=== PATIENT | female | born 1945 | race Caucasian/White ===

== ENCOUNTER 2021-08-20 14:35 | Outpatient (CLI) | payer MEDICARE, BC, SELFPAY ==
[2021-08-20 14:51] LABS: Hemoglobin A1C* 8.2 % (0-5.6)
[2021-08-20 21:24] LABS: Chloride* 105 mmol/L (96-114); Potassium* 4.9 mmol/L (3.6-5.1); Sodium* 135 mmol/L (135-149)
[2021-08-20 21:26] LABS: Creatinine* 1.4 mg/dL (0.5-1.5); Estimated Glomerular Filt Rate 38.99
[2021-08-20 21:27] LABS: Blood Urea Nitrogen* 50 mg/dL (7-30); Calcium* 9.7 mg/dL (8.4-10.6); Carbon Dioxide* 20 mmol/L (20-32); Glucose* 308 mg/dL (60-115)
== END 2021-08-20 14:36 | disposition home or self-care (01) ==
LOC: KYNREF 14:36
PROVIDERS: PCP Nurse Practitioner Family; Visit Provider Nurse Practitioner Family
DX: E11.9 Type 2 diabetes mellitus without complications (principal); M10.9 Gout, unspecified; I10 Essential (primary) hypertension; E78.5 Hyperlipidemia, unspecified; Z51.81 Encounter for therapeutic drug level monitoring
CPT/HCPCS: 36415; 80048; 83036

== ENCOUNTER 2021-08-27 11:33 | Outpatient (CLI) | payer MEDICARE, SELFPAY ==
[2021-08-27 15:22] LABS: Chloride* 109 mmol/L (96-114); Potassium* 4.2 mmol/L (3.6-5.1); Sodium* 136 mmol/L (135-149)
[2021-08-27 15:25] LABS: Blood Urea Nitrogen* 27 mg/dL (7-30); Carbon Dioxide* 20 mmol/L (20-32); Creatinine* 1.2 mg/dL (0.5-1.5); Estimated Glomerular Filt Rate 46.91; Glucose* 183 mg/dL (60-115)
[2021-08-27 15:26] LABS: Calcium* 9.5 mg/dL (8.4-10.6)
--- OUTSIDE RECORDS SUMMARY | 2021-09-05 00:08 | XMS_ITS | Encounter Summary ---
:1945 Author Organization [facility] Address [address] [place] [address] Care Team Providers Name Role Phone Lincoln Vazquez MD Primary Care Provider Reason for Visit Reason Onset Date Comments a1c meter 04/05/2021 Encounter Details Date Type Department Care Team Description 04/05/2021 Telephone [place] Corrine Vazquez MD a1c meter [address] [place], [place] [address] [place], [place] [phone] (Wo rk) Social History Tobacco Use Types Packs/Day Years Used Date Never Smoker Smokeless Tobacco: Never Used Alcohol Use Standard Drinks/Week Comments No 0 (1 standard drink = 0.6 oz pure alcoho l) Alcohol Habits Answer Date Recorded How often do you have a drink containing alcohol? Never 02/21/2020 How many drinks containing alcohol do you have on a typical Not asked day when you are drinking? How often do you have six or more drinks on one occasion? No t asked Comment: Not asked Social Isolation Answer Date Recorded In a typical week, how many times do you More than three agapito es a week 12/23/2018 talk on the phone with family, friends, or neighbors? How often do you get together with friends More than three t imes a week 12/23/2018 or relatives? How often do you attend latter-day or More than 4 times per year 12/23/2018 zoroastrian services? Do you belong to any clubs or No 12/23/2018 organizations such as latter-day groups, unions, fraternal or athletic groups, or school groups? How often do you attend meetings of the Never 12/23/2018 clubs or organizations you belong to? Are you now , , , 12/23/2018 , never or living with a partner? Physical Activity Answer Date Recorded On average, how many days per week do you engage in moderate to 0 days 12/23/2018 strenuous exercise (like walking fast, running, jogging, dancing, swimming, biking, or other activities that cause a light or heavy sweat)? On average, how many minutes do you engage in exercise at th is 0 min 12/23/2018 level? Stress Answer Date Recorded Do you feel stress - tense, restless, nervous, or To some ex tent 12/23/2018 anxious, or unable to sleep at night because your mind is troubled all the time - these days? Financial Resource Strain Answer Date Recorded How hard is it for you to pay for the very basics like Not h erika at all 02/21/2020 food, housing, medical care, and heating? Intimate Partner Violence Answer Date Recorded Within the last year, have you been afraid of your partner o r No 12/23/2018 ex-partner? Within the last year, have you been humiliated or emotionall y No 12/23/2018 abused in other ways by your partner or ex-partner? Within the last year, have you been kicked, hit, slapped, or No 12/23/2018 otherwise physically hurt by your partner or ex-partner? Within the last year, have you been raped or forced to have any No 12/23/2018 kind of sexual activity by your partner or ex-partner? Food Insecurity Answer Date Recorded Within the past 12 months, you worried that your food would Never true 02/21/2020 run out before you got money to buy more. Within the past 12 months, the food you bought just didn't N ever true 02/21/2020 last and you didn't have money to get more. Transportation Needs Answer Date Recorded In the past 12 months, has lack of transportation kept you f rom No 02/21/2020 medical appointments or from getting medications? In the past 12 months, has lack of transportation kept you f rom No 02/21/2020 meetings, work, or getting things needed for daily living? Sex Assigned at Date Recorded Not on file documented as of this encounter Miscellaneous Notes Telephone Encounter - Lana Knight LPN - 04/05/2021 10:51 AM CST Noted TUNE UP MECHANIC Telephone Encounter - Luciana Albarado - 04/05/2021 10:25 AM CST Rx faxed to [facility] TUNE UP MECHANIC Telephone Encounter - Jovanna Swartz RN - 04/05/2021 9:51 AM CST Please fax Rx to [facility]. Thank you. TUNE UP MECHANIC Telephone Encounter - Corrine Vazquez MD - 04/05/2021 9:19 AM CST You can fax the order for her glucometer to her pharmacy. TUNE UP MECHANIC Telephone Encounter - Lana Knight LPN - 04/05/2021 9:11 AM CST Contour Next Meter TUNE UP MECHANIC Telephone Encounter - Clyde Hale - 04/05/2021 8:32 AM CST Pt called to request a new A1c meter(does not need testing strips)plz call pt if you have questions TUNE UP MECHANIC documented in this encounter Plan of Treatment Not on filedocumented as of this encounter Goals Goal Patient Goal Associated Recent Patient-Stated? Author Type Problems Progress Routine Health General No change No Domitila, Management (02/05/2021 Abbie Murray, 11:19 AM AUTO TUNE UP MECHANIC) RN Note: Formatting of this note is differe nt from the original. Routine Health Management Care Team Patient Care Team: Corrine Vazquez MD as PCP - General ([facility]) Yossi Potts, RN as Registered Nurse (Diabetes Education) Abbie Ramesh, RN as Topography Technician Future Scheduled Appointments No future appointments. Health Maintenance Health Maintenance Topic Date Due Urine Protein Screening 05/31/2020 Lipid Panel 09/05/2020 Glaucoma Screening 67+ Yr 12/25/2020 Ophthalmology Exam 12/25/2020 [facility] Annual Wellness 01/12/2021 Hemoglobin A1C 01/24/2021 Diabetic Foot Exam 03/16/2021 Colorectal Cancer Screening: Colonoscop y 05/21/2021 Fall Risk Performed 06/05/2021 Mammogram 12/03/2021 COVID-19 Vaccine Completed [facility] Pneumococcal Vaccine: <64 Complete d [facility] Pneumococcal Vaccine: 65+ Years Co mpleted HPV Vaccines Aged Out Notes: Due: Urine Protein screening Eye exam AWV A1C Lipid panel Diabetes Management General No change (02/05/2021 11:17 AM No Abbie Ramesh, RN AUTO TUNE UP MECHANIC) Note: Formatting of this note is differe nt from the original. Diabetes Management Type 2 diabetes mellitus with other spec ified complication (HCC) Managed by (PCP or Endocrinology) Dr. 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) Diabetic labs: Hemoglobin A1C (goal: less than 8.0) LDL (goal: less than 100) Creatinine Urine-Micro albumin / Protein Lab Result s Component Value Date HGBA1C 8.4 (H) 06/15/2020 Lab Results Component Value Date LDLCALC 99 09/06/2019 CREATININE 1.2 03/16/2020 Recent Blood Pressure (goal: less than 140/90) BP Readings fro m Last 1 Encounters: 11/09/20 144/82 Diabetic Eye Exam (yearly) Last: 12/26/19 Diabetic Foot Exam (yearly) Last: 021 Tobacco use Social History Tobacco Use Smoking status: Never Smoker Smokeless tobacco: Never Used Notes / Items to work on: 9/17/21: Tapering down metformin- currently takin g 500mg daily Cardiovascular Management General On track (02/05/2021 Abbie Monzon RN 11:14 AM AUTO TUNE UP MECHANIC) Note: Formatting of this note is differe nt from the original. Cardiovascular Management Essential hypertension Chronic coronary artery disease Managed by (PCP; Cardiology; Antico Clinic) Dr. Ronak olzoya MD (PCP)/Dr. Tena MD Last: 11/09/20 Due: 3 months Blood pressure goal Less than 140/90 (ag e 18-59) Recent blood pressures BP Readings from Last 3 Encounters: 11/09/20 144/82 10/08/20 120/80 06/19/20 120/60 Labs Lab Results Component Value Date CHOL 183 09/06/2019 HDL 37 (A) 09/06/2019 LDLCALC 99 09/06/2019 TRIG 234 (A) 09/06/2019 Medication use Notes: documented as of this encounter Visit Diagnoses Diagnosis Type 2 diabetes mellitus with other spec ified complication, with long-term current use of insulin (HCC) - Primary documented in this encounter Care Teams Manufacturing Executive Relationship Specialty Start Date End Date Corrine Vazquez MD PCP - General Family Medicine 07/07/19 08/19/[address] [place] [address] documented as of this encounter
--- OUTSIDE RECORDS SUMMARY | 2021-09-05 00:08 | XMS_ITS | Encounter Summary ---
:1945 Author Organization [facility] Address [address] [place] [address] Care Team Providers Name Role Phone Lincoln Vazquez MD Primary Care Provider Reason for Visit Reason Onset Date Comments registry management 05/09/2021 Encounter Details Date Type Department Care Team Description 05/09/2021 Telephone [place] Corrine Vazquez, registry management [address] [facility] [address] [place], [place] [id number] [place] [address] [place] [address] ([facility]) Social History Tobacco Use Types Packs/Day Years [...] or relatives? How often do you attend mu-ism or More than 4 times per year 12/23/2018 adventism services? Do you belong to any clubs or No 12/23/2018 organizations such as mu-ism groups, unions, fraternal or athletic groups, or [...] this encounter Miscellaneous Notes Telephone Encounter - Margareth Sanchez RN - 05/09/2021 9:[address] Vazquez, please see recommendations at the bottom and advise. Registry Management Marcial is active on the following registry/registries: Hypertension Registry Measure Value Optimal Care BP reading -yearly BP Readings from Last 1 Encounters: 03/06/21 (!) 162/86 Yes BP controlled Age 18-59 <140/90 Age 60-85 <150/90 No Actions needed to achieve optimal care for hypertension: ??? Schedule appointment with PCP for a routine visit Diabetes Registry Measure Value Optimal Care BP controlled <140/90 BP Readings from Last 1 Encounters: 03/06/21 (!) 162/86 No Eye exam -yearly HM: Due Date: 12/26/2019 No Foot exam -yearly HM: Due Date: 03/08/20 No Tobacco use - non-tobacco user Tobacco Use: Low Risk ??? Smoking Tobacco Use: Never Smoker ??? Smokeless Tobacco Use: Never Used Yes Aspirin use Indicated if age 50+ and diagnosis of IVD Listed on Medication list or Allergy list No Statin use Indicated if age 40+ or LDL >100 Listed on Medication list or Allergy list Yes A1C -control < 8.0% -yearly HGBA1C (% A1C) Date Value 02/14/2021 8.6 (H) 06/15/2020 8.4 (H) 03/16/2020 8.5 (H) No LDL -control < 100 -yearly LDLCALC (mg/dL) Date Value 02/14/2021 136 (H) No MicroAlbCrea -yearly MICROALBCREA (mg/g) Date Value 02/14/2021 41 (H) CREATU (mg/dL) Date Value 02/14/2021 257 Yes Actions needed to achieve optimal care for diabetes: ??? Schedule appointment for: office visit with PCP, labs (non-fasting), diabetic eye exam and diabetic foot exam ??? Alert the provider to advise ASA therapy Actions taken: ??? Patient is followed by Care Coordination. Alerted CCM-RN to discuss the care gaps with patient. ??? RN spoke to patient and advised her that she is due for a diabetic foot exam and an A1C. She stated that she isn't taking her blood pressure medication at this time due to feeling poorly and havingto see cardiology, she stopped the medications after this visit and she felt better. Patient stated she had an eye exam recently at the [facility], RN will call for records. ??? , please advise on possible Aspirin Therapy. documented in this encounter Plan of Treatment Not on filedocumented as of this encounter Goals Goal Patient Goal Associated Recent Patient-Stated? Author Type Problems Progress Routine Health General No change No Domitila, Management (02/05/2021 Abbie Murray 11:19 AM STORE OPERATIONS SPECIALIST) RN Note: Formatting of this note is differe nt from the original. Routine Health Management Care Team Patient Care Team: Corrine Vazquez MD as PCP - General ([facility] Medicine) Yossi Potts RN as Registered Nurse (Diabetes Education) Abbie Ramesh RN as Vocal Music Instructor Future Scheduled Appointments No future appointments. Health Maintenance Health Maintenance Topic Date Due Urine Protein Screening 05/31/2020 Lipid Panel 09/05/2020 Glaucoma Screening 67+ Yr 12/25/2020 Ophthalmology Exam 12/25/2020 [facility] Annual Wellness 01/12/2021 Hemoglobin A1C 01/24/2021 Diabetic Foot Exam 03/16/2021 Colorectal Cancer Screening: Colonoscop y 05/21/2021 Fall Risk Performed 06/05/2021 Mammogram 12/03/2021 COVID-19 Vaccine Completed [facility] Pneumococcal Vaccine: <64 Complete d [facility] Pneumococcal Vaccine: 65+ Years Co mpleted HPV Vaccines Aged Out Notes: Due: Urine Protein screening Eye exam AWV A1C Lipid panel Diabetes Management General No change (02/05/2021 11:17 AM Abbie Monzon, RN STORE OPERATIONS SPECIALIST) Note: Formatting of this note is differe nt from the original. Diabetes Management Type 2 diabetes mellitus with other spec ified complication (HCC) Managed by (PCP or Endocrinology) Dr. Vazquez (PCP ) Home Glucose tracking 1-3 times per day Diabetic medications insulin glargine (B ASAGLAR KWIKPEN) 100 UNIT/ML injection 22 units in AM [...] Used Notes / Items to work on: 11/02/20: Tapering down metformin- currently takin g 500mg daily Cardiovascular Management General On track (02/05/2021 Abbie Monzon RN 11:14 AM STORE OPERATIONS SPECIALIST) Note: Formatting of this note is differe nt from the original. Cardiovascular Management Essential hypertension Chronic coronary artery disease Managed by (PCP; Cardiology; Anticoag Clinic) Dr. Ronak lozoya MD (PCP)/Dr. Tena MD Last: 11/09/20 Due: 3 months Blood pressure goal Less than 140/90 (ag e 18-59) Recent blood pressures BP Readings from Last 3 Encounters: 11/09/20 144/82 10/08/20 120/80 06/19/20 120/60 Labs Lab Results Component Value Date CHOL 183 09/06/2019 HDL 37 (A) 09/06/2019 LDLCALC 99 09/06/2019 TRIG 234 (A) 09/06/2019 Medication use Notes: documented as of this encounter Visit Diagnoses Not on filedocumented in this encounter Care Teams Block Setter Gypsum Relationship Specialty Start Date End Date Corrine Vazquez MD PCP - General Family Medicine 07/07/19 08/19/[address] [place] [address] documented as of this encounter
--- OUTSIDE RECORDS SUMMARY | 2021-09-05 00:08 | XMS_ITS | Encounter Summary ---
:1945 Author Organization [facility] Address [address] [place] [address] Care Team Providers Name Role Phone Lincoln Vazquez MD Primary Care Provider Reason for Visit Consultation (Routine) - Authorized Specialty Diagnoses / Procedures Referred By Contact Refer red To Contact Family Medicine Diagnoses Enrolled in chronic care management Essential hypertension Type 2 diabetes mellitus with other specified complication, with long-term current use of insulin (HCC) Mixed hyperlipidemia Corrine Vazquez MD Care Coordination [address] [address] [place] [address], [place] [phone] Referral ID Status Reason Start Expiration Visits Visits Date Date Requested Authorized [id number] Authorized Specialty 02/16/2021 03/18/2022 99 99 Services Required Encounter Details Date Type Department Care Team Description 05/09/2021 Patient Outreach Care Coordination Abbie Ramesh [facility] and [address] [place] [address] Terri RN coordination of care [place], [place] [id number] [facility] (Primary Dx) [phone] [place] [phone] Social History Tobacco Use Types Packs/Day Years [...] or relatives? How often do you attend bahai or More than 4 times per year 12/23/2018 sikh services? Do you belong to any clubs or No 12/23/2018 organizations such as bahai groups, unions, [employer] or athletic groups, or school groups? How [...] on file documented as of this encounter Progress Notes Abbie Ramesh RN - 05/09/2021 8:40 AM CDT Care Plan - Care Coordination Contact Date: 05/09/2021 3:33 PM Called for monthly follow up and progress; Left message to call back. This is first attempt to call this month. documented in this encounter Plan of Treatment Not on filedocumented as of this encounter Goals Goal Patient Goal Associated Recent Patient-Stated? Author Type Problems Progress Routine Health General No change No Peter Ramesh (02/05/2021 Abbie Murray, 11:19 AM CUSTOM DECORATING CONSULTANT) RN Note: Formatting of this note is differe nt from the original. Routine Health Management Care Team Patient Care Team: Corrine Vazquez MD as PCP - General ([facility] Medicine) Yossi Potts, RN as Registered Nurse (Diabetes Education) Abbie Ramesh RN as Transcribing Machine Operator Future Scheduled Appointments No future appointments. Health [...] No change (02/05/2021 11:17 AM No Abbie Ramesh RN CUSTOM DECORATING CONSULTANT) Note: Formatting of this note is differe nt from the original. Diabetes Management Type 2 diabetes mellitus with other spec ified complication (HCC) Managed by (PCP or Endocrinology) Dr. Vazquez (PCP ) Home Glucose tracking 1-3 times per day Diabetic medications insulin glargine (B ASAGLMARIANELA KWIKPEN) 100 UNIT/ML injection 22 units in [...] daily Cardiovascular Management General On track (02/05/2021 No Abbie Ramesh, RN 11:14 AM CUSTOM DECORATING CONSULTANT) Note: Formatting of this note is differe nt from the original. Cardiovascular Management Essential hypertension Chronic coronary artery disease Managed by (PCP; Cardiology; [facility]) Dr. Ronak lozoya MD (PCP)/Dr. Tena [...] as of this encounter Visit Diagnoses Diagnosis Counseling and coordination of care - Pr imary documented in this encounter Care Teams Hematology Supervisor Relationship Specialty Start Date End Date Corrine Vazquez MD PCP - General Family Medicine 07/07/19 08/19/[address] [place] [address] documented as of this encounter
--- OUTSIDE RECORDS SUMMARY | 2021-09-05 00:08 | XMS_ITS | Clinical Summary ---
:1945 Author Organization [facility] Address [address] [place] [address] Care Team Providers Name Role Phone Ronak Patel STRATEGIC PARTNER DEVELOPMENT MANAGER, RESEARCH PROJECT MANAGER Primary Care Provider Allergies Active Allergy Reactions Severity Noted Date Comments Amlodipine 03/15/2021 Azathioprine Azithromycin Lisinopril Other (see comments) Medium 07/29/2018 nightma res Metoprolol 06/19/2020 Olmesartan Statins Other (see comments) 01/05/2019 Intoler ance to Statin Intolerance to Statin Medications Medication Sig Dispensed Refills Start Date End Date Status leflunomide (ARAVA) 20 MG Take 20 mg by 0 Active tabletIndications: mouth every Rheumatoid Arthritis other day nitroglycerin (NITROSTAT) Place 0.4 mg 0 07/29/2018 Active 0.4 MG SL tablet under the tongue Abatacept (ORENCIA IV) Infuse into a 0 Active venous catheter every 30 (thirty) days cholecalciferol, vitamin Total is 20,000 0 Active D3, 5,000 Units tablet per week tablet Multiple Take by mouth 0 Active Vitamins-Minerals Contains Zinc (MULTIVITAMIN ADULT PO) per Orthopedic Assistant. Calcium Carbonate Take 1,000 mg by 0 Active (CALCIUM 600 PO) mouth 1 (one) time each day Polyvinyl Administer 1 0 Active Alcohol-Povidone (REFRESH drop into OP) affected eye(s) 3 (three) times a day Dry Eyes pen needle, diabetic (1st USE TO INJECT 100 each 3 10/28/2019 Active Tier Unifine Pentips INSULIN ONCE A Plus) 31G X 5 MM DAY miscIndications: Type 2 diabetes mellitus with other specified complication, without long-term current use of insulin (HCC) Accu-Chek FastClix Use to test 3 100 each 11 11/27/2019 Active Lancets miscIndications: times daily. Type 2 diabetes mellitus with other specified complication, with long-term current use of insulin ([facility]) UNABLE TO FIND Med Name: FISH 0 Active OIL, ZINC, TUMERIC Blood Glucose Monitoring Use as directed 1 each 0 1 Active Suppl w/Device to check blood kitIndications: Type 2 sugars three diabetes mellitus without times daily. complication, with long-term current use of insulin ([facility]) Lancets miscIndications: Use as directed 100 each 11 1 Active Type 2 diabetes mellitus to check blood without complication, sugar three with long-term current times daily. use of insulin ([facility]) Insulin Pen Needle 31G X May check 1-2 100 each 3 10/17/2020 Active 4 MM miscIndications: times a day for Type 2 diabetes mellitus diabetes without complication, with long-term current use of insulin ([facility]) metFORMIN XR Take 1 tablet 90 tablet 3 11/09/2020 Ac tive (GLUCOPHAGE-XR) 500 MG 24 (500 mg total) hr tabletIndications: by mouth 1 (one) Type 2 diabetes mellitus time each day with other specified with dinner complication, with long-term current use of insulin ([facility]) glipiZIDE (GLUCOTROL XL) Take ONE pill 90 tablet 3 11/09/2020 Active 10 MG 24 hr ONCE a day for tabletIndications: Type 2 diabetes Do diabetes mellitus with not crush, chew, other specified or split. complication, with long-term current use of insulin ([facility]) ferrous sulfate 325 (65 Take 1 tablet 90 tablet 3 11/09/2020 Active Fe) MG tabletIndications: (325 mg total) Anemia, unspecified type by mouth 1 (one) time each day with breakfast levothyroxine (SYNTHROID) Take 1 tablet 90 tablet 3 12/05/2020 Active 75 MCG tabletIndications: (75 mcg total) Hypothyroidism, by mouth 1 (one) unspecified type time each day insulin glargine Take 22 units 15 mL 5 12/05/2020 Active (Basaglar KwikPen) 100 once a day in UNIT/ML the PM for injectionIndications: diabetes OR Type 2 diabetes mellitus DIRECTED with other specified complication, without long-term current use of insulin ([facility]) glucose blood test Use as 100 each 11 12/14/2020 Active stripIndications: Type 2 instructed to 2 diabetes mellitus with check blood other specified sugar 1-3x day complication, with long-term current use of insulin ([facility]) Lancets miscIndications: Use as 100 each 11 12/14/2020 Active Type 2 diabetes mellitus instructed to with other specified check blood complication, with sugar 1-3 x day. long-term current use of insulin ([facility]) fluconazole (Diflucan) Take ONE daily 3 tablet 2 01/16/2021 Active 150 MG tabletIndications: for three days Yeast vaginitis for yeast oxybutynin XL 0 01/25/2021 Activ e (DITROPAN-XL) 5 MG 24 hr tablet triamcinolone (KENALOG) 0 01/22/2021 Active 0.1 % cream clindamycin (CLEOCIN) 2 % 0 01/22/2021 Active vaginal cream hydroCHLOROthiazide Take ONE a day 90 tablet 3 03/06/2021 Active (HYDRODIURIL) 12.5 MG in the AM for tabletIndications: blood pressure Primary hypertension amLODIPine (Norvasc) 5 MG Take ONE a day 90 tablet 3 2 Active tabletIndications: for blood Primary hypertension pressure glucose blood test CONTOUR NEXT to be used three times a day. 100 e ach 03/07/2021 Active stripIndications: Type 2 HgbA1c: 02/15/2020 8.6 3 diabetes mellitus with Last visit: 03/06/2021 other specified complication, with long-term current use of insulin ([facility]) Lancets (onetouch Microlet Lancets : Check blood sugar 3 times a day. 200 each 03/07/2021 Active ultrasoft) HgbA1c: 02/15/2020 8.6 3 lancetsIndications: Type Last visit: 03/06/2021 2 diabetes mellitus with other specified complication, with long-term current use of insulin ([facility]) Insulin Pen Needle 31G X Use once daily to inject insulin 100 each 03/07/2021 Active 8 MM miscIndications: HgbA1c: 02/15/2020 8.6 3 Type 2 diabetes mellitus Last visit: 03/06/2021 with other specified complication, with long-term current use of insulin ([facility]) ALPRAZolam (XANAX) 0.5 MG TAKE ONE TABLET 15 tablet 2 03/13/19 22 Active tabletIndications: BY MOUTH EVERY 8 Anxiety HOURS NEEDED FOR ANXIETY- MUST LAST 30 DAYS Blood Glucose Monitoring Contour Next Glucose Meter: Use daily 1 ki t 0 04/05/2021 Active Suppl (Blood Glucose HbgA1c: 8.6 02/14/2021 3 Monitor System) w/Device kitIndications: Type 2 diabetes mellitus with other specified complication, with long-term current use of insulin (HCC) Active Problems Problem Noted Date Chronic diarrhea 06/05/2020 Venous insufficiency 06/05/2020 Status post coronary artery stent placement 12/15/2019 Abnormal liver function test 09/12/2019 Pain of upper abdomen 06/13/2019 Stage 3 chronic kidney disease 08/27/2018 Edema 12/30/2017 Essential hypertension 12/30/2017 Benign paroxysmal positional vertigo 12/22/2017 Anemia 12/14/2017 Overview: Overview: Added automatically from request for cookie dozier [id number] Type 2 diabetes mellitus with other specified complica tion 08/10/2017 Rheumatoid arthritis 05/12/2017 Paresthesia of skin 03/31/2017 Gout 07/28/2016 Anemia 06/26/2016 Other [place] (current[facility] drug therapy 03/31/2016 Hyperlipidemia 01/14/2016 Chronic coronary artery disease 02/05/2015 Overview: Overview: Coronary Artery Disease (CAD) [facility] Chronic ischemic heart disease 02/05/2015 Overview: Overview: Coronary Artery Disease (CAD) [facility] Subclinical hypothyroidism 10/26/2014 Cervicalgia 10/19/2014 Postoperative urinary tract infection 01/13/2014 Postmenopausal bleeding 11/10/2013 Postmenopausal atrophic vaginitis 08/09/2013 Other osteoporosis 09/14/2002 Encounters Date Type Specialty Care Team Description 07/31/2021 Patient Outreach Family Medicine Abbie Ramesh, Co unseling and RN coordination of care (Primary Dx) 06/19/2021 Patient Outreach Family Medicine Abbie Ramesh, RN from Last 3 Months Immunizations Name Administration Dates Next Due Flu Vaccine High Dose 65yrs and Older 11/09/2020, 01/17/2019 , 01/18/2018, IM 12/02/2016, 12/10/2015, 12/01/2015, 11/29/2014, 11/22/2014, 11/23/2013 Influenza (IM) Preservative Free 01/08/2009 Influenza Split 11/22/2014, 12/31/2009 Influenza TIV (IM) 12/17/2009 Influenza, Unspecified 12/10/2015, 11/29/2014, 12/02/2013, 11/16/2012, 11/30/2010, 12/31/2009 Pneumococcal Conjugate 13-Valent 06/21/2014 Pneumococcal Polysaccharide 08/16/2019, 01/28/2008 TD Preservative Free 08/16/2019 Td 02/14/2010 Tdap 02/14/2010 Zoster 09/20/2015, 08/28/2015 Family History Medical History Relation Comments Diabetes Brother 1 Hypertension Brother 1 Diabetes Brother 2 Diabetes Daughter Coronary artery disease Father Lung cancer Father Diabetes Father's Brother 1 Heart disease Father's Brother 1 Diabetes Father's Brother 2 Heart disease Father's Brother 2 Heart disease Father's Brother 3 No Known Problems Maternal Grandfather Goiter Maternal Grandmother Migraines Maternal Grandmother Breast cancer Mother Goiter Mother Heart attack Mother's Brother Clotting disorder Paternal Grandfather No Known Problems Paternal Grandmother No Known Problems Son Relation Status Comments Brother 1 Brother 2 Alive Daughter Alive Father Father's Brother 1 Father's Brother 2 Father's Brother 3 Maternal Grandfather Maternal Grandmother Mother Mother's Brother Paternal Grandfather Paternal Grandmother Son Alive Social History Tobacco Use Types Packs/Day Years [...] or relatives? How often do you attend confucianist or More than 4 times per year 12/23/2018 evangelical services? Do you belong to any clubs or No 12/23/2018 organizations such as confucianist groups, unions, fraternal or athletic groups, or [...] Assigned at Date Recorded Not on file Last Filed Vital Signs Vital Sign Reading Time Taken Comments Blood Pressure 162/86 03/06/2021 10:17 AM MALT HOUSE OPERATOR Pulse 72 03/06/2021 10:17 AM MALT HOUSE OPERATOR Temperature 37 ??C (98.6 ??F) 03/06/2021 9:35 AM MALT HOUSE OPERATOR Respiratory Rate 14 03/06/2021 9:35 AM MALT HOUSE OPERATOR Oxygen Saturation 97% 03/06/2021 9:35 AM MALT HOUSE OPERATOR Inhaled Oxygen Concentration - - Weight 82.6 kg (182 lb) 03/06/2021 9:35 AM MALT HOUSE OPERATOR Height 160.3 cm (5' 3.11) 03/06/2021 9:35 AM MALT HOUSE OPERATOR Body Mass Index 32.13 03/06/2021 9:35 AM MALT HOUSE OPERATOR Plan of Treatment Health Maintenance Due Date Last Done Comments COVID-19 Vaccine (#1) 1945 [facility] Annual Wellness 01/12/2021 01/13/2020 Diabetic Foot Exam 03/16/2021 03/16/2020, 07/15/2018, 02/24/2017 Fall Risk Performed 06/05/2021 06/05/2020 Hemoglobin A1C 08/15/2021 02/14/2021, 07/25/2020, 06/15/2020, Additional history exists Mammogram 12/03/2021 12/03/2020, 12/02/2019, 11/26/2019, Additional history exists Lipid Panel 02/14/2022 02/14/2021, 09/06/2019, 03/17/2019, Additional history exists Urine Protein Screening 02/14/2022 02/14/2021, 06/01/2019, 02/24/2017, Additional history exists Glaucoma Screening 67+ Yr 03/08/2022 03/08/2021, 12/26/2019 , 12/17/2018 Ophthalmology Exam 03/08/2022 03/08/2021, 12/26/2019, 12/17/2018, Additional history exists [facility] Pneumococcal Vaccine: Completed 08/16/2019, 06/21/2014 , 65+ Years 01/28/2008 [facility] Pneumococcal Vaccine: Completed 08/16/2019, 06/21/2014 , <64 01/28/2008 HPV Vaccines Aged Out No longer eligib le based on patient 's age to complete this topic Goals Goal Patient Goal Associated Recent Patient-Stated? Author Type Problems Progress Routine Health General No change Peter Monzon (02/05/2021 Abbie Murray 11:19 AM MALT HOUSE OPERATOR) RN Note: Formatting of this note is differe nt from the original. Routine Health Management Care Team Patient Care Team: Corrine Vazquez MD as [facility] - [facility] Yossi Potts, RN as Registered Nurse (Diabetes Education) Abbie Ramesh, RN as Rn Lactation Future Scheduled Appointments No future appointments. Health [...] change (02/05/2021 11:17 AM Abbie Monzon, RN MALT HOUSE OPERATOR) Note: Formatting of this note is differe nt from the original. Diabetes Management Type 2 diabetes mellitus with other spec ified complication (HCC) Managed by (PCP or Endocrinology) Dr. Vazquez (PCP ) Home Glucose tracking 1-3 times per day Diabetic medications insulin glargine (B OSIRISGLMARIANELA KWEVELINEPEN) 100 UNIT/ML injection 22 units in AM [...] Management General On track (02/05/2021 No Abbie Ramesh RN 11:14 AM MALT HOUSE OPERATOR) Note: Formatting of this note is differe [...] TRIG 234 (A) 09/06/2019 Medication use Notes: Insurance Payer Benefit Plan / Subscriber ID Effective Dates Phone Addre ss Type Group MEDICARE MEDICARE [id number] 2010-[employer] [address] [place] [id number] BC[place] [id number] 2016-[employer] [address] [place] [address] [place], [place] MEDICARE NON [id number] ADVANTAGE Care Teams Equipment Service Engineer Relationship Specialty Start Date End Date Adriane Patel, STRATEGIC PARTNER DEVELOPMENT MANAGER, RESEARCH PROJECT MANAGER PCP - General Family Medicine 08/20/[address] [place] [address] [place] [address]
--- OUTSIDE RECORDS SUMMARY | 2021-09-05 00:08 | XMS_ITS | Encounter Summary ---
:1945 Author Organization [facility] Address [address] [place] [address] Care Team Providers Name Role Phone Lincoln Vazquez MD Primary Care Provider Reason for Visit Consultation (Routine) - Authorized Specialty Diagnoses / Procedures Referred By Contact Refer red To Contact Family Medicine Diagnoses Enrolled in chronic care management Essential hypertension Type 2 diabetes mellitus with other specified complication, with long-term current use of insulin (HCC) Mixed hyperlipidemia Corrine Vazquez MD Care Coordination [address] [place] [address] 5 [phone] Referral ID Status Reason Start Expiration Visits Visits Date Date Requested Authorized [id number] Authorized Specialty 02/16/2021 03/18/2022 99 99 Services Required Encounter Details Date Type Department Care Team Description 06/19/2021 Patient Outreach SE Care Coordination Abbie Ramesh [address] [place] [address] [place] [phone] Social History Tobacco Use Types Packs/Day Years [...] or relatives? How often do you attend jewish or More than 4 times per year 12/23/2018 uatsdin services? Do you belong to any clubs or No 12/23/2018 organizations such as jewish groups, unions, fraternal or athletic groups, or [...] encounter Progress Notes Abbie Ramesh RN - 06/19/2021 8:40 AM CDT Care Plan - Care Coordination Contact Date: 06/19/2021 4:02 PM Called for monthly follow up and progress; Left message to call back. This is first attempt to call this month. documented in this encounter Plan of Treatment Not on filedocumented as of this encounter Goals Goal Patient Goal Associated Recent Patient-Stated? Author Type Problems Progress Routine Health General No change Peter Monzon (02/05/2021 Abbie Murray, 11:19 AM SENIOR ADMINISTRATIVE ASSISTANT) RN Note: Formatting of this note is differe nt from the original. Routine Health Management Care Team Patient Care Team: Corrine Vazquez MD as PCP - General ([facility] Medicine) Yossi Potts, RN as Registered Nurse (Diabetes Education) Abbie Ramesh RN as Pouch Making Machine Operator Future Scheduled Appointments No future [...] (02/05/2021 11:17 AM No Abbie Ramesh, RN SENIOR ADMINISTRATIVE ASSISTANT) Note: Formatting of this note is differe [...] (02/05/2021 No Abbie Ramesh, RN 11:14 AM SENIOR ADMINISTRATIVE ASSISTANT) Note: Formatting of this note is differe nt from the original. Cardiovascular Management Essential hypertension Chronic coronary artery disease Managed by (PCP; Cardiology; [facility]) Dr. Ronak lozoya MD (PCP)/Dr. [...] on filedocumented in this encounter Care Teams Painter Helper Spray Relationship Specialty Start Date End Date Corrine Vazquez MD PCP - General Family Medicine 07/07/19 08/19/[address] [place] [address] documented as of this encounter
--- OUTSIDE RECORDS SUMMARY | 2021-09-05 00:08 | XMS_ITS | Encounter Summary ---
:1945 Author Organization [facility] Address [address] [place] [address] Care Team Providers Name Role Phone Ronak Patel SPOOL SANDER, TABLET TECHNICIAN Primary Care Provider Reason for Visit Consultation (Routine) - Authorized Specialty Diagnoses / Procedures Referred By Contact Refer red To Contact Family Medicine Diagnoses Enrolled in chronic care management Essential hypertension Type 2 diabetes mellitus with other specified complication, with long-term current use of insulin (HCC) Mixed hyperlipidemia Corrine Vazquez MD Care Coordination [address] [address], [place] [phone] Referral ID Status Reason Start Expiration Visits Visits Date Date Requested Authorized [id number] Authorized Specialty 02/16/2021 03/18/2022 99 99 Services Required Encounter Details Date Type Department Care Team Description 07/31/2021 Patient Outreach SE Care Coordination Abbie Ramesh [facility] and [address] [place] [address] Terri RN coordination of care [place], [place] [phone] [id number] [facility] (Primary Dx) [phone] [place] [address] Social History Tobacco Use Types Packs/Day Years [...] or relatives? How often do you attend yarsanism or More than 4 times per year 12/23/2018 congregational services? Do you belong to any clubs or No 12/23/2018 organizations such as yarsanism groups, unions, [employer] or athletic groups, or school groups? [...] encounter Progress Notes Abbie Ramesh RN - 07/31/2021 10:40 AM CDT Care Plan - Care Coordination Contact Date: 07/31/2021 11:49 AM Called for monthly follow up and progress; Left message to call back. This is first attempt to call this month. Penny Werner RN - 07/31/2021 10:40 AM CDT Care Plan - Care Coordination Contact Date: 08/15/2021 4:23 PM Pt states she has questions about the amount of insulin she should or should not take since she is taking prednisone. Pt states she normally talks to Abbie, but hasn't talked to her in a while. Spent 1 minute in chart review. Ria Wong RN - 07/31/2021 10:40 AM CDT Care Plan - Care Coordination Contact Date: 08/15/2021 4:39 PM Returned Niurkaclemencia's voicemail, she states she was given Prednisone by her Imaging System Administrator for a flare. She states she is concerned her blood sugars are running higher. Took first dose this morning. States this AM she was 131, lunch was 246, and was 331 this afternoon after lunch. Patient states her doctor is at the [facility] and follows with Suresh Patel. Instructed patient to follow up with her PCP as nurse cannot adjust insulin doses and patient does not follow with [facility] any longer. Marcial verbalizes understanding. 8 minutes spent with patient 1 minute spent in chart review Abbie Ramesh RN - 07/31/2021 10:40 AM CDT Care Coordination Speeder Frame Tender: Abbie Ramesh RN Date: 08/20/2021 10:48 AM ?? Discontinued patient from [facility] since she no longer gets her Primary Care at [facility]. documented in this encounter Plan of Treatment Not on filedocumented as of this encounter Goals Goal Patient Goal Associated Recent Patient-Stated? Author Type Problems Progress Routine Health General No change Hailee Ramesh Management (02/05/2021 Abbie Murray 11:19 AM FURNITURE REPAIR TECHNICIAN) RN Note: Formatting of this note is differe nt from the original. Routine Health Management Care Team Patient Care Team: Corrine Vazquez MD as [facility]CP - [facility] Yossi Potts, RN as Registered Nurse (Diabetes Education) Abbie Ramesh RN as Ice Grinder Future Scheduled Appointments No future appointments. Health Maintenance Health Maintenance Topic Date Due Urine Protein Screening 05/31/2020 Lipid Panel 09/05/2020 Glaucoma Screening 67+ Yr 12/25/2020 Ophthalmology Exam 12/25/2020 [facility] Annual Wellness 01/12/2021 Hemoglobin A1C 01/24/2021 Diabetic Foot Exam 03/16/2021 Colorectal Cancer Screening: Colonoscop y 05/21/2021 Fall Risk Performed 06/05/2021 Mammogram 12/03/2021 COVID-19 Vaccine Completed [facility] Pneumococcal Vaccine: <64 Complete d [facility] Pneumococcal Vaccine: 65+ Years Co mpleted HPV Vaccines Aged Out Notes: Due: Urine Protein screening Eye exam AWV A1C Lipid panel Diabetes Management General No change (02/05/2021 11:17 AM Abbie Monzon RN FURNITURE REPAIR TECHNICIAN) Note: Formatting of this note is differe nt from the original. Diabetes Management Type 2 diabetes mellitus with other spec ified complication (HCC) Managed by (PCP or Endocrinology) Dr. Vazquez (PCP ) Home Glucose tracking 1-3 times per day Diabetic medications insulin glargine (B ASAGLAR ROLDANIKPEN) 100 UNIT/ML injection 22 units in AM [...] (02/05/2021 No Abbie Ramesh RN 11:14 AM FURNITURE REPAIR TECHNICIAN) Note: Formatting of this note is differe [...] imary documented in this encounter Care Teams Paid Intern Relationship Specialty Start Date End Date Adriane Patel, SPOOL SANDER, TABLET TECHNICIAN PCP - General Family Medicine 08/20/21 [address] [address] documented as of this encounter
--- OUTSIDE RECORDS SUMMARY | 2021-09-05 00:09 | XMS_ITS | Encounter Summary ---
:1945 Author Organization [facility] Address [address] [place] [address] Care Team Providers Name Role Phone Lincoln Vazquez MD Primary Care Provider Reason for Visit Reason Onset Date Comments fasting labs 02/13/2021 Encounter Details Date Type Department Care Team Description 02/13/2021 Telephone [place] Corrine Vazquez MD fasting labs [address] [place], [place] [address] [place], [place] [phone] (Wo rk) Social History Tobacco Use Types [...] or relatives? How often do you attend methodist or More than 4 times per year 12/23/2018 gnosticism services? Do you belong to any clubs or No 12/23/2018 organizations such as methodist groups, unions, fraternal or athletic groups, or [...] this encounter Miscellaneous Notes Telephone Encounter - Corrine Vazquez MD - 02/13/2021 12:31 PM CST Orders placed ORADIOLOGIST Telephone Encounter - Hali Cormier MA - 02/13/2021 11:16 AM CST Patient came in for labs but was not fasting. Patient will be coming in tomorrow morning to have this drawn. Please replace orders for LIPID and Ha1C. ORADIOLOGIST documented in this encounter Plan of Treatment Not on filedocumented as of this encounter Goals Goal Patient Goal Associated Recent Patient-Stated? Author Type Problems Progress Routine Health General No change No Peter Ramesh (02/05/2021 Abbie Murray, 11:19 AM NEURORADIOLOGIST) RN Note: Formatting of this note is differe nt from the original. Routine Health Management Care Team Patient Care Team: Corrine Vazquez MD as PCP - General ([facility]) Yossi Potts, RN as Registered Nurse (Diabetes Education) Abbie Ramesh RN as Honeycomb Blanket Maker Future Scheduled Appointments No future appointments. Health Maintenance Health Maintenance Topic Date Due Urine Protein Screening 05/31/2020 Lipid Panel 09/05/2020 Glaucoma Screening 67+ Yr 12/25/2020 Ophthalmology Exam 12/25/2020 [facility] Annual Wellness 01/12/2021 Hemoglobin A1C 01/24/2021 Diabetic Foot Exam 03/16/2021 Colorectal Cancer Screening: Colonoscop y 05/21/2021 Fall Risk Performed 06/05/2021 Mammogram 12/03/2021 COVID-19 Vaccine Completed [facility] Pneumococcal Vaccine: <64 Complete d [facility] Pneumococcal Vaccine: 65+ Years Co mpleted HPV Vaccines Aged Out Notes: Due: Urine Protein screening Eye exam AWV A1C Lipid panel Diabetes Management General No change (02/05/2021 11:17 AM No Abbie Ramesh, RN NEURORADIOLOGIST) Note: Formatting of this note is differe nt from the original. Diabetes Management Type 2 diabetes mellitus with other spec ified complication (HCC) Managed by (PCP or Endocrinology) Dr. Vazquez (PCP ) Home Glucose tracking 1-3 times per day Diabetic medications insulin glargine (B OSIRISGLMARIANELA MONTILLAIKPEN) 100 UNIT/ML injection 22 units in AM [...] (02/05/2021 No Abbie Ramesh RN 11:14 AM NEURORADIOLOGIST) Note: Formatting of this note is differe nt from the original. Cardiovascular Management Essential hypertension Chronic coronary artery disease Managed by (PCP; Cardiology; [facility]) Dr. Ronak lozoya MD (PCP)/Dr. Tena [...] use Notes: documented as of this encounter Results (ABNORMAL) Lipid panel (02/14/2021 9:30 AM NEURORADIOLOGIST) P athologist Signature Cholesterol 237 (H) 0 - 199 02/14/2021 [facility] mg/dL 1:26 PM [facility] Comment: Recommended by National Cholesterol Education Program (ATP III) -------- Cholesterol Ranges -------- <200 ?Desirable 200-239 ? Borderline high >=240 ? High Triglycerides 285 (H) 0 - 149 mg/dL 02/14/2021 1:26 PM [facility] Comment: -------- TRIG Ranges -------- <150 ?Normal 150-199 ? Borderline high 200-499 ? High >=500 ? Very high HDL 44 40 - 250 mg/dL 02/14/2021 1:26 PM [facility] Comment: -------- HDL Ranges -------- <40 ?Low 40-59 ?Normal >=60 ? Optimal LDL Calculated 136 (H) 0 - 99 mg/dL 02/14/2021 1:26 PM [facility] Comment: -------- LDL Ranges -------- <100 ? Optimal 100-129 ?Near optimal/above op timal 130-159 ?Borderline high 160-189 ?High >=190 ?Very high Fasting? Yes 02/14/2021 9:35 AM NEURORADIOLOGIST [facility] Specimen Anatomical Collection Method Collection Time Receive d Time (Source) Location / / Volume Laterality Blood 02/14/2021 9:30 02/14/2021 AM NEURORADIOLOGIST 12:48 PM NEURORADIOLOGIST D. Lincoln Vazquez MD LAB BLOOD ORDERABLES Performing Organization Address City/State/ZIP Code Phon e Number [facility] [address] [place] [address] (ABNORMAL) Hemoglobin A1c (02/14/2021 9:30 AM NEURORADIOLOGIST) Analysis Performed At [facility] Signature Hemoglobin A1C 8.6 (H) 4.0 - 5.6 02/14/2021 [facility] % A1C 6:49 PM [facility] Comment: Reference Range 4.0-5.6% is for non-preg nant adults >=18 yrs <5.6% ? Non-Diabetic 5.7-6.4% ??Increased risk of Diabetes >=6.5% ?Indicative of Diabetes <7.0% ? ADA goal for glycemic contro l Methodology may not detect all hemoglobi n variants which can affect A1c results. Method certified by National Glycohemoglobin Standardization Program. Specimen Anatomical Collection Method Collection Time Receive d Time (Source) Location / / Volume Laterality Blood (Blood, 02/14/2021 9:30 02/14/2021 Venous) AM NEURORADIOLOGIST 6:20 PM NEURORADIOLOGIST D. Lincoln Vazquez MD LAB BLOOD ORDERABLES Performing Organization Address City/State/ZIP Code Phon e Number [facility] [address] [place] [id number] (ABNORMAL) Basic metabolic panel (02/14/2021 9:30 AM NEURORADIOLOGIST) Analysis Performed At [facility] Signature Sodium 137 135 - 145 02/14/2021 [facility] mEq/L 1:26 PM [facility] Potassium 3.8 3.5 - 5.1 02/14/2021 [facility] mEq/L 1:26 PM [facility] Chloride 103 98 - 107 02/14/2021 [facility] mEq/L 1:26 PM [facility] CO2 25 22 - 29 02/14/2021 [facility] mmol/L 1:26 PM [facility] Creatinine 1.5 (H) 0.4 - 1.2 02/14/2021 [facility] mg/dL 1:26 PM [facility] BUN 28 (H) 5 - 25 02/14/2021 [facility] mg/dL 1:26 PM [facility] Glucose 169 (H) 70 - 100 02/14/2021 [facility] mg/dL 1:26 PM [facility] Calcium, 9.3 8.4 - 10.2 02/14/2021 [facility] Total,S mg/dL 1:26 PM [facility] Specimen Anatomical Collection Method Collection Time Receive d Time (Source) Location / / Volume Laterality Blood 02/14/2021 9:30 02/14/2021 AM NEURORADIOLOGIST 12:48 PM NEURORADIOLOGIST Corrine Vazquez MD LAB BLOOD ORDERABLES Performing Organization Address City/State/ZIP Code Phon e Number [facility] [address] [place] [address] documented in this encounter Visit Diagnoses Diagnosis Screening for deficiency anemia - Primar y Screening for other and unspecified defi ciency anemia Type 2 diabetes mellitus without complic ation, with long-term current use of insulin (HCC) Mixed hyperlipidemia documented in this encounter Care Teams Diesel Mechanic Construction Relationship Specialty Start Date End Date Corrine Vazquez MD PCP - General Family Medicine 07/07/19 08/19/[address] [place] [address] documented as of this encounter
--- OUTSIDE RECORDS SUMMARY | 2021-09-05 00:09 | XMS_ITS | Encounter Summary ---
:1945 Author Organization [facility] Address [address] [place] [address] Care Team Providers Name Role Phone Lincoln Vazquez MD Primary Care Provider Reason for Visit Reason Onset Date Comments med question 03/15/2021 Encounter Details Date Type Department Care Team Description 03/15/2021 Telephone [place] Corrine Vazquez MD med question [address] [place], [place] [address] [place], [place] [phone] (Wo rk) Social History Tobacco Use Types [...] or relatives? How often do you attend yarsani or More than 4 times per year 12/23/2018 quaker services? Do you belong to any clubs or No 12/23/2018 organizations such as yarsani groups, unions, fraternal or athletic groups, or [...] Telephone Encounter - Margareth Sanchez RN - 03/15/2021 3:19 PM CST Patient informed, no question at this time. She will start the hydrochlorothiazide. NUE ENFORCEMENT COLLECTION AGENT Telephone Encounter - Corrine Vazquez MD - 03/15/2021 3:07 PM CST Have she does not want to start taking the amlodipine because of side effect previously that is okay. However she should start taking the hydrochlorothiazide is a very small pill 12.5 mg tablet I think she will do okay with that. Then she should come back to the office in 2 or 3 weeks for another blood pressure check. We will have to consider a little different medication at that time depending about what her blood pressure is. Any questions or problems let me know. If you could adolfo her chart as having a reaction to the amlodipine. NUE ENFORCEMENT COLLECTION AGENT Telephone Encounter - Margareth Sanchez RN - 03/15/2021 2:57 PM CST Patient stated she was on Amlodipine earlier this year and she felt terrible on it, she said she wasso fatigued, she could barely walk, she saw a bi lead because she thought something was wrong with her heart. When she stopped the Amlodipine she felt better within 2 days. She wonders if there edmond different medication she can take for her BP. She did say she hasn't started the hydrochlorothiazide because she is scheduled for an EGD Thursday and she doesn't want to start anything prior to that procedure. Please advise. NUE ENFORCEMENT COLLECTION AGENT Telephone Encounter - Margareth Sanchez RN - 03/15/2021 1:59 PM CST LMTC to discuss medications. NUE ENFORCEMENT COLLECTION AGENT Telephone Encounter - Brenda House - 03/15/2021 12:01 PM CST Pt has questions about amlodipine. Pt thinks that she is not suppose to be taking. NUE ENFORCEMENT COLLECTION AGENT documented in this encounter Plan of Treatment Not on filedocumented as of this encounter Goals Goal Patient Goal Associated Recent Patient-Stated? Author Type Problems Progress Routine Health General No change No Domitila, Peter (02/05/2021 Abbie Murray, 11:19 AM REVENUE ENFORCEMENT COLLECTION AGENT) RN Note: Formatting of this note is differe nt from the original. Routine Health Management Care Team Patient Care Team: Corrine Vazquez MD as PCP - General ([facility] Medicine) Yossi Potts, RN as Registered Nurse (Diabetes Education) Abbie Ramesh RN as Domestic Laundry Worker Future Scheduled Appointments No future appointments. Health Maintenance Health Maintenance Topic Date Due Urine Protein Screening 05/31/2020 Lipid Panel 09/05/2020 Glaucoma Screening 67+ Yr 12/25/2020 Ophthalmology Exam 12/25/2020 [facility] Annual Wellness 01/12/2021 Hemoglobin A1C 01/24/2021 Diabetic Foot Exam 03/16/2021 Colorectal Cancer Screening: Colonoscop y 05/21/2021 Fall Risk Performed 06/05/2021 Mammogram 12/03/2021 COVID-19 Vaccine Completed [facility] [facility] Pneumococcal Vaccine: <64 Complete d [facility] Pneumococcal Vaccine: 65+ Years Co mpleted HPV Vaccines Aged Out Notes: Due: Urine Protein screening Eye exam AWV A1C Lipid panel Diabetes Management General No change (02/05/2021 11:17 AM Abbie Monzon, RN REVENUE ENFORCEMENT COLLECTION AGENT) Note: Formatting of this note is differe [...] (02/05/2021 No Abbie Ramesh RN 11:14 AM REVENUE ENFORCEMENT COLLECTION AGENT) Note: Formatting of this note is differe nt from the original. Cardiovascular Management Essential hypertension Chronic coronary artery disease Managed by (PCP; Cardiology; [facility]) Dr. Ronak lozoya MD (PCP)/Dr. Tena [...] on filedocumented in this encounter Care Teams Mineral Surveyor Relationship Specialty Start Date End Date Corrine Vazquez MD PCP - General Family Medicine 07/07/19 08/19/[address] [place] [address] documented as of this encounter
--- OUTSIDE RECORDS SUMMARY | 2021-09-05 00:09 | XMS_ITS | Encounter Summary ---
:1945 Author Organization [facility] Address [address] [place] [address] Care Team Providers Name Role Phone Lincoln Vazquez MD Primary Care Provider Encounter Details Date Type Department Care Team Description 11/22/2020 Orders Only [place] Corrine Vazquez MD [address] [place], [place] [address] [place], [place] [phone] (Wo rk) Social History Tobacco Use Types [...] or relatives? How often do you attend jainism or More than 4 times per year 12/23/2018 adventism services? Do you belong to any clubs or No 12/23/2018 organizations such as jainism groups, unions, fraternal or athletic groups, or [...] on file documented as of this encounter Plan of Treatment Not on filedocumented as of this encounter Goals Goal Patient Goal Associated Recent Patient-Stated? Author Type Problems Progress Routine Health General No change No Domitila, Management (02/05/2021 Abbie Murray, 11:19 AM DIRECTOR OF CARDIAC CATH LAB) RN Note: Formatting of this note is differe nt from the original. Routine Health Management Care Team Patient Care Team: Corrine Vazquez MD as PCP - General ([facility] Medicine) Yossi Potts, RN as Registered Nurse (Diabetes Education) Abbie Ramesh, ERA as Grain Scooper Future Scheduled Appointments No future appointments. Health [...] (02/05/2021 11:17 AM No Abbie Ramesh, RN DIRECTOR OF CARDIAC CATH LAB) Note: Formatting of this note is differe nt from the original. Diabetes Management Type 2 diabetes mellitus with other spec ified complication (HCC) Managed by (PCP or Endocrinology) Dr. Vazquez (PCP ) Home Glucose tracking 1-3 times per day Diabetic medications insulin glargine (B ROXANNE CALDWELL) 100 UNIT/ML injection 22 units in [...] track (02/05/2021 Abbie Monzon RN 11:14 AM DIRECTOR OF CARDIAC CATH LAB) Note: Formatting of this note is differe nt from the original. Cardiovascular Management Essential hypertension Chronic coronary artery disease Managed by (PCP; Cardiology; [facility]) Dr. Ronak lozoya MD (PCP)/Dr. Tena [...] on filedocumented in this encounter Care Teams Autoglazier Relationship Specialty Start Date End Date Corrine Vazquez MD PCP - General Family Medicine 07/07/19 08/19/[address] [place] [address] documented as of this encounter
--- OUTSIDE RECORDS SUMMARY | 2021-09-05 00:09 | XMS_ITS | Encounter Summary ---
:1945 Author Organization [facility] Address [address] [place] [address] Care Team Providers Name Role Phone Lincoln Vazquez MD Primary Care Provider Reason for Visit Reason Onset Date Comments Labs and Rx 01/24/2021 Encounter Details Date Type Department Care Team Description 01/24/2021 Telephone [place] Corrine Vazquez MD Labs and Rx [address] [place], [place] [address] [place], [place] [phone] (Wo rk) Social History Tobacco Use Types [...] or relatives? How often do you attend moravian or More than 4 times per year 12/23/2018 congregation services? Do you belong to any clubs or No 12/23/2018 organizations such as moravian groups, unions, fraternal or athletic groups, or [...] Telephone Encounter - Lana Knight LPN - 01/25/2021 10:26 AM CST Patient informed EQUIPMENT SERVICE TECHNICIAN Telephone Encounter - Corrine Vazquez MD - 01/25/2021 8:44 AM CST Let the patient know that she can come in sometime next week for her A1c. She is not due for her thyroid test till next year sometime. Also let her know that she can certainly try the oxybutynin and if it has benefits with minimal side effects she can certainly continue to take that. EQUIPMENT SERVICE TECHNICIAN Telephone Encounter - Margareth Sanchez RN - 01/24/2021 2:55 PM CST Patients last A1c 07/25/20, due now. Order pended. Patients last TSH was 03/08 should she have this done again 03/09? Please advise on recommendations for Oxybutin. EQUIPMENT SERVICE TECHNICIAN Telephone Encounter - Luciana Albarado - 01/24/2021 2:50 PM CST Pt ca;;aed asking if it's time her for to come in to have her A1C and thyroid checked. Pt also wanted Dr. Vazquez to know a physician she saw at [facility] wants to start her onOxybutynin ER, and she wants to know what he thinks of that. Please call Pt at [phone] to advise. EQUIPMENT SERVICE TECHNICIAN documented in this encounter Plan of Treatment Not on filedocumented as of this encounter Goals Goal Patient Goal Associated Recent Patient-Stated? Author Type Problems Progress Routine Health General No change No Domitila Management (02/05/2021 Abbie Murray, 11:19 AM FOOD EQUIPMENT SERVICE TECHNICIAN) RN Note: Formatting of this note is differe nt from the original. Routine Health Management Care Team Patient Care Team: Corrine Vazquez MD as PCP - General ([facility] Medicine) Yossi Potts, RN as Registered Nurse (Diabetes Education) Abbie Ramesh RN as Roller Cleaner Future Scheduled Appointments No future appointments. Health Maintenance Health Maintenance Topic Date Due Urine Protein Screening 05/31/2020 Lipid Panel 09/05/2020 Glaucoma Screening 67+ Yr 12/25/2020 Ophthalmology Exam 12/25/2020 [facility] Annual Wellness 01/12/2021 Hemoglobin A1C 01/24/2021 Diabetic Foot Exam 03/16/2021 Colorectal Cancer Screening: Colonoscop y 05/21/2021 Fall Risk Performed 06/05/2021 Mammogram 12/03/2021 COVID-19 Vaccine Completed [facility] Pneumococcal Vaccine: <64 Complete d [facility] Pneumococcal Vaccine: 65+ Years Co mpleted HPV Vaccines Aged Out Notes: Due: Urine Protein screening Eye exam AWV A1C Lipid panel Diabetes Management General No change (02/05/2021 11:17 AM No Abbie Ramesh, RN FOOD EQUIPMENT SERVICE TECHNICIAN) Note: Formatting of this note is differe nt from the original. Diabetes Management Type 2 diabetes mellitus with other spec ified complication (HCC) Managed by (PCP or Endocrinology) Dr. Vazquez (PCP ) Home Glucose tracking 1-3 times per day Diabetic medications insulin glargine (B OSIRISGLMARIANELA MAGALLANESPEN) 100 UNIT/ML injection 22 units in AM [...] track (02/05/2021 Abbie Monzon RN 11:14 AM FOOD EQUIPMENT SERVICE TECHNICIAN) Note: Formatting of this note is [...] Visit Diagnoses Diagnosis Type 2 diabetes mellitus without complic ation, with long-term current use of insulin (HCC) - Primary documented in this encounter Care Teams Naval Aircrewman Relationship Specialty Start Date End Date Corrine Vazquez MD PCP - General Family Medicine 07/07/19 08/19/[address] [place] [address] documented as of this encounter
--- OUTSIDE RECORDS SUMMARY | 2021-09-05 00:09 | XMS_ITS | Encounter Summary ---
:1945 Author Organization [facility] Address [address] [place] [address] Care Team Providers Name Role Phone Lincoln Vazquez MD Primary Care Provider Reason for Visit Reason Onset Date Comments med refill 03/13/2021 Encounter Details Date Type Department Care Team Description 03/13/2021 Telephone [place] Corrine Vazquez MD med refill [address] [place], [place] [address] [place], [place] [phone] (Wo rk) Social History Tobacco Use Types [...] More than 4 times per year 12/23/2018 episcopal services? Do you belong to any clubs [...] this encounter Miscellaneous Notes Telephone Encounter - Luciana Albarado - 03/13/2021 11:25 AM CST Rx faxed to [facility], Pt notified. FEEDER Telephone Encounter - Margareth Sanchez RN - 03/13/2021 11:10 AM CST Please fax Rx to [facility]. FEEDER Telephone Encounter - Corrine Vazquez MD - 03/13/2021 11:03 AM CST You can fax the Rx for Xanax to her pharmacy. FEEDER Telephone Encounter - Maryse Coker - 03/13/2021 10:13 AM CST Pt is requesting a refill of Xanax. She would like this to go to [facility] in [place]. Thanks. FEEDER documented in this encounter Plan of Treatment Not on filedocumented as of this encounter Goals Goal Patient Goal Associated Recent Patient-Stated? Author Type Problems Progress Routine Health General No change No Peter Ramesh (02/05/2021 Abbie Murray, 11:19 AM BOX FEEDER) RN Note: Formatting of this note is differe nt from the original. Routine Health Management Care Team Patient Care Team: Corrine Vazquez MD as PCP - General ([facility] Medicine) Yossi Potts, RN as Registered Nurse (Diabetes Education) Abbie Ramesh RN as Staff Weapons Officer Future Scheduled Appointments No future appointments. Health Maintenance Health Maintenance Topic Date Due Urine Protein Screening 05/31/2020 Lipid Panel 09/05/2020 Glaucoma Screening 67+ Yr 12/25/2020 Ophthalmology Exam 12/25/2020 [facility] [place] [place] Annual Wellness 01/12/2021 Hemoglobin A1C 01/24/2021 Diabetic [...] (02/05/2021 11:17 AM No Abbie Ramesh RN BOX FEEDER) Note: Formatting of this note is differe [...] (02/05/2021 No Abbie Ramesh RN 11:14 AM BOX FEEDER) Note: Formatting of this note is differe [...] as of this encounter Visit Diagnoses Diagnosis Anxiety Anxiety state, unspecified documented in this encounter Care Teams Garment Inspector Relationship Specialty Start Date End Date Corrine Vazquez MD PCP - General Family Medicine 07/07/19 08/19/[address] [place] [address] documented as of this encounter
--- OUTSIDE RECORDS SUMMARY | 2021-09-05 00:09 | XMS_ITS | Encounter Summary ---
:1945 Author Organization [facility] Address [address] [place] [address] Care Team Providers Name Role Phone Lincoln Vazquez MD Primary Care Provider Reason for Visit Reason Onset Date Comments rx 11/09/2020 Encounter Details Date Type Department Care Team Description 11/09/2020 Telephone [place] Corrine Vazquez MD rx [address] [place], [place] [address] [place], [place] [phone] (Wo rk) Social History Tobacco Use Types [...] or relatives? How often do you attend presybeterian or More than 4 times per year 12/23/2018 jew services? Do you belong to any clubs or No 12/23/2018 organizations such as presybeterian groups, unions, fraternal or athletic groups, or [...] Telephone Encounter - Lana Knight LPN - 11/12/2020 9:59 AM CDT Called talked to Derek the pharmacist. Telephone Encounter - Phoebe Donohue - 11/09/2020 4:07 PM CDT Pharmacy has questions about RX. Please call Kamille at [phone]. documented in this encounter Plan of Treatment Not on filedocumented as of this encounter Goals Goal Patient Goal Associated Recent Patient-Stated? Author Type Problems Progress Routine Health General No change No Domitila, Peter (02/05/2021 Abbie Murray, 11:19 AM LABORATORY ASST) RN Note: Formatting of this note is differe nt from the original. Routine Health Management Care Team Patient Care Team: Corrine Vazquez MD as [facility]CP - [facility] Yossi Potts RN as Registered Nurse (Diabetes Education) Abbie Ramesh, RN as Horticultural Farm Manager Future Scheduled Appointments No future appointments. Health Maintenance Health Maintenance Topic Date Due Urine Protein Screening 05/31/2020 Lipid Panel 09/05/2020 Glaucoma Screening 67+ Yr 12/25/2020 Ophthalmology Exam 12/25/2020 [facility] Annual Wellness 01/12/2021 Hemoglobin A1C 01/24/2021 Diabetic Foot Exam 03/16/2021 Colorectal Cancer Screening: Colonoscop y 05/21/2021 Fall Risk Performed 06/05/2021 Mammogram 12/03/2021 COVID-19 Vaccine Completed [facility] [place] Pneumococcal Vaccine: <64 Complete d [facility] Pneumococcal Vaccine: 65+ Years Co mpleted HPV Vaccines Aged Out Notes: Due: Urine Protein screening Eye exam AWV A1C Lipid panel Diabetes Management General No change (02/05/2021 11:17 AM No Abbie Ramesh, RN LABORATORY ASST) Note: Formatting of this note is differe [...] (02/05/2021 No Abbie Ramesh RN 11:14 AM LABORATORY ASST) Note: Formatting of this note is differe [...] on filedocumented in this encounter Care Teams Mc Kay Machine Operator Relationship Specialty Start Date End Date Corrine Vazquez MD PCP - General Family Medicine 07/07/19 08/19/[address] [place] [address] documented as of this encounter
--- OUTSIDE RECORDS SUMMARY | 2021-09-05 00:09 | XMS_ITS | Encounter Summary ---
:1945 Author Organization [facility] Address [address] [place] [address] Care Team Providers Name Role Phone Lincoln Vazquez MD Primary Care Provider Reason for Visit Reason Onset Date Comments prescription location change 12/12/2020 Encounter Details Date Type Department Care Team Description 12/12/2020 Telephone [place] Corrine Vazquez prescription location [address] [address] MD Lincoln change [place], [place] [id number] [place] [address] [place] [address] Social History Tobacco Use Types Packs/Day Years [...] or relatives? How often do you attend latter day or More than 4 times per year 12/23/2018 advent services? Do you belong to any clubs or No 12/23/2018 organizations such as latter day groups, unions, fraternal or athletic groups, or [...] Notes Telephone Encounter - Luciana Albarado - 12/17/2020 9:30 AM CDT Rx's faxed to [facility] as requested. Telephone Encounter - Margareth Sanchez RN - 12/17/2020 8:33 AM CDT Please fax Rxs to [facility]. Telephone Encounter - Corrine Vazquez MD - 12/14/2020 5:13 PM CDT Done. Please Fax Telephone Encounter - Margareth Sanchez RN - 12/14/2020 4:45 PM CDT Rxs pended please sing and fax to [facility]. Telephone Encounter - Ladi Grant - 12/13/2020 12:19 PM CDT Pt returning call Telephone Encounter - Lana Knight LPN - 12/13/2020 10:33 AM CDT LM Telephone Encounter - Lana Knight LPN - 12/13/2020 8:28 AM CDT Needing to know the name of her strips and lancets she is using. Also how many times she checks. Telephone Encounter - Luciana Albarado - 12/12/2020 3:47 PM CDT Pt called stating she is needing her test strips and lancets refilled. The pharmacy in [place] she had been using is closing. Pt would like these sent to [facility] now. Please call Pt at [phone] to advise. documented in this encounter Plan of Treatment Not on filedocumented as of this encounter Goals Goal Patient Goal Associated Recent Patient-Stated? Author Type Problems Progress Routine Health General No change No Domitila, Management (02/05/2021 Abbie Murray, 11:19 AM LINOTYPER) RN Note: Formatting of this note is differe nt from the original. Routine Health Management Care Team Patient Care Team: Corrine Vazquez MD as PCP - General ([facility] Medicine) Yossi Potts, RN as Registered Nurse (Diabetes Education) Abbie Ramesh, RN as Tabular Typist Future Scheduled Appointments No future appointments. Health Maintenance Health Maintenance Topic Date Due Urine Protein Screening 05/31/2020 Lipid Panel 09/05/2020 Glaucoma Screening 67+ Yr 12/25/2020 [place]hthalmology Exam 12[place]25/2020 [facility] [place] 01/12/2021 Hemoglobin A1C 01/24/2021 Diabetic Foot Exam 03/16/2021 Colorectal Cancer Screening: Colonoscop y 05/21/2021 Fall Risk Performed 06/05/2021 Mammogram 12/03/2021 COVID-19 Vaccine Completed [facility] [place] Pneumococcal Vaccine: <64 Complete d [facility] Pneumococcal Vaccine: 65+ Years Co mpleted HPV Vaccines Aged Out Notes: Due: Urine Protein screening Eye exam AWV A1C Lipid panel Diabetes Management General No change (02/05/2021 11:17 AM No Abbie Ramesh, RN LINOTYPER) Note: Formatting of this note is differe [...] (02/05/2021 No Abbie Ramesh RN 11:14 AM LINOTYPER) Note: Formatting of this note is differe nt from the original. Cardiovascular Management Essential hypertension Chronic coronary artery disease Managed by (PCP; Cardiology; [facility]) Dr. Ronak lozoya MD (PCP)/Dr. Tena [...] Primary documented in this encounter Care Teams Union Organiser Relationship Specialty Start Date End Date Corrine Vazquez MD PCP - General Family Medicine 07/07/19 08/19/[address] [place] [address] documented as of this encounter
--- OUTSIDE RECORDS SUMMARY | 2021-09-05 00:09 | XMS_ITS | Encounter Summary ---
:1945 Author Organization [facility] Address [address] [place] [address] Care Team Providers Name Role Phone Lincoln Vazquez MD Primary Care Provider Encounter Details Date Type Department Care Team Description 02/14/2021 Lab [place] Type 2 diabetes mellitus wit hout complication, with long-term current use of insulin (HCC); [address] Mixed hyperlipidemia; [place], [place] [address] Screening for deficiency ane luis; [phone] Type 2 diabetes mellitus with other specified complication, with long-term current use of insulin (HCC) Social History Tobacco Use Types Packs/Day Years [...] or relatives? How often do you attend amish or More than 4 times per year 12/23/2018 roman catholic services? Do you belong to any clubs or No 12/23/2018 organizations such as amish groups, unions, fraternal or athletic groups, or [...] Domitila, Management (02/05/2021 Abbie Murray, 11:19 AM SEC REPORTING CONSULTANT) RN Note: Formatting of this note is differe nt from the original. Routine Health Management Care Team Patient Care Team: Corrine Vazquez MD as PCP - General ([facility] Medicine) Yossi Potts, RN as Registered Nurse (Diabetes Education) Abbie Ramesh RN as Student Life Advisor Future Scheduled Appointments No future appointments. Health [...] (02/05/2021 11:17 AM No Abbie Ramesh, RN SEC REPORTING CONSULTANT) Note: Formatting of this note is [...] track (02/05/2021 Abbie Monzon RN 11:14 AM SEC REPORTING CONSULTANT) Note: Formatting of this note is [...] use Notes: documented as of this encounter Procedures Procedure Name Priority Date/Time Associated Diagnosis Comme nts GLOMERULAR Routine 02/14/2021 9:30 Type 2 diabetes Results for this FILTRATION RATE AM SEC REPORTING CONSULTANT mellitus without procedur e are in complication, with the resul ts long-term current use sectio n. of insulin ([facility]) CBC BRANCH OFFICE Routine 02/14/2021 9:30 Result s for this W/DIFF AM SEC REPORTING CONSULTANT procedure are i n the results section. HEMOGLOBIN A1C Routine 02/14/2021 9:30 Type 2 diabetes Result s for this AM SEC REPORTING CONSULTANT mellitus without procedure a re in complication, with the resul ts long-term current use sectio n. of insulin ([facility]) LIPID PANEL Routine 02/14/2021 9:30 Type 2 diabetes Results for this AM SEC REPORTING CONSULTANT mellitus without procedure a re in complication, with the resul ts long-term current use sectio n. of insulin ([facility]) Mixed hyperlipidemia BASIC METABOLIC Routine 02/14/2021 9:30 Type 2 diabetes Resul ts for this PANEL AM SEC REPORTING CONSULTANT mellitus without procedure a re in complication, with the resul ts long-term current use sectio n. of insulin ([facility]) MICROALBUMIN/CREATI Routine 02/14/2021 9:10 Type 2 diabetes R esults for this NINE RATIO AM SEC REPORTING CONSULTANT mellitus with other procedur e are in specified the results complication, with section. long-term current use of insulin (HCC) documented in this encounter Results (ABNORMAL) Glomerular filtration rate (GFR) (02/14/2021 9:30 AM SEC REPORTING CONSULTANT) P athologist Signature GFR 34 (A) 02/14/2021 [facility] 1:26 PM [facility] 41 (A) 02/14/2021 [facility] Zimbabwean GFR 1:26 PM SEC REPORTING CONS[facility] Comment: GFR calculated from serum creatinine v alue Chronic Kidney Disease less than 60 mL/m in/1.73 m2 Kidney Failure less than 15 mL/min/1.73 m2 Note: effective 07/01/06 IDMS-Traceable MDRD Study Equation used. Specimen Anatomical Collection Method Collection Time Receive d Time (Source) Location / / Volume Laterality 02/14/2021 9:30 02/14/2021 AM SEC REPORTING CONSULTANT 9:30 AM SEC REPORTING CONSULTANT D. Lincoln Vazquez MD LAB BLOOD ORDERABLES Performing Organization Address City/State/ZIP Code Phon e Number [facility] [address] [place] [address] (ABNORMAL) CBC Branch Off w/Diff (02/14/2021 9:30 AM SEC REPORTING CONSULTANT) Patholo gist Method Time Signature WBC 7.7 3.5 - 10.5 02/14/2021 [facility] [place] K/uL 11:26 AM SEC REPORTING CONSULTANT [place] RBC 3.71 (L) 3.90 - 02/14/2021 [facility] 5.00 M/uL 11:26 AM SEC REPORTING CONSULTANT [place] Hemoglobin 10.9 (L) 12.0 - 02/14/2021 [facility] 15.5 g/dL 11:26 AM SEC REPORTING CONSULTANT [place] Hematocrit 33.2 (L) 35.0 - 02/14/2021 [facility] 44.0 % 11:26 AM SEC REPORTING CONSULTANT [place] Platelets 205 150 - 450 02/14/2021 [facility] K/uL 11:26 AM SEC REPORTING CONSULTANT [place] MCV 89.5 81.6 - 02/14/2021 [facility] 98.3 fL 11:26 AM SEC REPORTING CONSULTANT [place] MCH 29.4 26.0 - 02/14/2021 [facility] [place] 32.0 pg 11:26 AM SEC REPORTING CONSULTANT [place] MCHC 32.8 32.0 - 02/14/2021 [facility] [place] 36.0 g/dL 11:26 AM SEC REPORTING CONSULTANT [place] RDW 13.3 11.9 - 02/14/2021 [facility] [place] 15.5 % 11:26 AM SEC REPORTING CONSULTANT [place] Lymphocytes % 14.9 % 02/14/2021 [facility] [place] 11:26 AM SEC REPORTING CONSULTANT [place] Mid-size Cells 10.5 % 02/14/2021 [facility] 11:26 AM SEC REPORTING CONSULTANT [place] Granulocytes/Jean Claude 74.6 % 02/14/2021 [facility] [place] trophils 11:26 AM SEC REPORTING CONSULTANT [place] Lymphocytes 1.1 0.9 - 2.9 02/14/2021 [facility] [place] Absolute K/uL 11:26 AM SEC REPORTING CONSULTANT [place] MIDS Absolute 0.8 0.4 - 1.5 02/14/2021 [facility] [place] [facility] [place] K/uL 11:26 AM SEC REPORTING CONSULTANT [place] Granulocytes/Jean Claude 5.8 1.7 - 7.0 02/14/2021 [facility] [place] [place] trophils K/uL 11:26 AM SEC REPORTING CONSULTANT [place] Absolute Specimen Anatomical Collection Method Collection Time Receive d Time (Source) Location / / Volume Laterality 02/14/2021 9:30 02/14/2021 AM SEC REPORTING CONSULTANT 9:35 AM SEC REPORTING CONSULTANT D. Lincoln Vazquez MD LAB BLOOD ORDERABLES Performing Organization Address City/State/ZIP Code Phon e Number [facility] [place] [address] [place] [address] (ABNORMAL) Basic metabolic panel (02/14/2021 9:30 AM SEC REPORTING CONSULTANT) Analysis Performed At Patho logist Time Signature Sodium 137 135 - 145 02/14/2021 [facility] mEq/L 1:26 PM [facility] Potassium 3.8 3.5 - 5.1 02/14/2021 [facility] mEq/L 1:26 PM [facility] Chloride 103 98 - 107 02/14/2021 [facility] mEq/L 1:26 PM [facility] CO2 25 22 - 29 02/14/2021 [facility] mmol/L 1:26 PM [facility] Creatinine 1.5 (H) 0.4 - 1.2 02/14/2021 [facility] mg/dL 1:26 PM [facility] BUN 28 (H) 5 - 25 02/14/2021 [facility] mg/dL 1:26 PM [facility] Glucose 169 (H) 70 - 100 02/14/2021 [facility] mg/dL 1:26 PM [facility] Calcium, 9.3 8.4 - 10.2 02/14/2021 [facility] Total,S mg/dL 1:26 PM [facility] Specimen Anatomical Collection Method Collection Time Receive d Time (Source) Location / / Volume Laterality Blood 02/14/2021 9:30 02/14/2021 AM SEC REPORTING CONSULTANT 12:48 PM SEC REPORTING CONSULTANT Corrine Vazquez MD LAB BLOOD ORDERABLES Performing Organization Address [facility] Code [facility] e Number [facility] [address] [place] [phone] (ABNORMAL) Hemoglobin A1c (02/14/2021 9:30 AM SEC REPORTING CONSULTANT) Analysis Performed At Patho logist Time Signature Hemoglobin A1C 8.6 (H) 4.0 - 5.6 02/14/2021 [facility] % A1C 6:49 PM [facility] Comment: Reference Range 4.0-5.6% is for [...] Blood (Blood, 02/14/2021 9:30 02/14/2021 Venous) AM SEC REPORTING CONSULTANT 6:20 PM SEC REPORTING CONSULTANT Corrine Vazquez MD LAB BLOOD ORDERABLES Performing Organization Address [facility] Phon e Number [facility] [address] [place] [address] (ABNORMAL) Lipid panel (02/14/2021 9:30 AM SEC REPORTING CONSULTANT) P athologist Signature Cholesterol 237 (H) 0 - 199 02/14/2021 [facility] mg/dL 1:26 PM [facility] Comment: Recommended by National Cholesterol Education Program (ATP III) -------- Cholesterol Ranges -------- <200 ?Desirable 200-239 ? Borderline high >=240 ? High Triglycerides 285 (H) 0 - 149 mg/dL 02/14/2021 1:26 PM [facility] Comment: -------- TRIG Ranges -------- <150 ?Normal 150-199 ? Borderline high 200-499 ? High >=500 ? Very high HDL 44 40 - 250 mg/dL 02/14/2021 1:26 PM [facility] Comment: -------- HDL Ranges -------- <40 ?Low 40-59 ?Normal >=60 ? Optimal LDL Calculated 136 (H) 0 - 99 mg/dL 02/14/2021 1:26 PM [facility] Comment: -------- LDL Ranges -------- <100 ? Optimal 100-129 ?Near optimal/above op timal 130-159 ?Borderline high 160-189 ?High >=190 ?Very high Fasting? Yes 02/14/2021 9:35 AM [facility] Specimen Anatomical Collection Method Collection Time Receive d Time (Source) Location / / Volume Laterality Blood 02/14/2021 9:30 02/14/2021 AM SEC REPORTING CONSULTANT 12:48 PM SEC REPORTING CONSULTANT D. Lincoln Vazquez MD LAB BLOOD ORDERABLES Performing Organization Address City/State/ZIP Code Phon e Number [facility] [address] [place] [address] (ABNORMAL) Microalbumin/Creatinine Ratio (02/14/2021 9:10 AM SEC REPORTING CONSULTANT) Patholo gist Method Time Signature Microalbumin,m 104.3 (H) 0.0 - 16.6 02/14/2021 [facility] g/day mg/L 1:37 PM [facility] Comment: . Creatinine, Urine 257 mg/dL 02/14/2021 1:[address] [facility] Comment: No established reference range. Microalb/Creat Ratio 41 (H) 0 - 24 mg/g 02/14/2021 1:37 PM [facility] Specimen Anatomical Collection Method Collection Time Receive d Time (Source) Location / / Volume Laterality Urine (Urine, 02/14/2021 9:10 02/14/2021 Clean Catch) AM SEC REPORTING CONSULTANT 12:48 PM SEC REPORTING CONSULTANT D. Lincoln Vazquez MD LAB URINE ORDERABLES Performing Organization Address City/State/ZIP Code Phon e Number [facility] [address] [place] [phone] documented in this encounter Visit Diagnoses Diagnosis Type 2 diabetes mellitus without complic ation, with long-term current use of insulin (HCC) Mixed hyperlipidemia Screening for deficiency anemia Screening for other and unspecified defi ciency anemia Type 2 diabetes mellitus with other spec ified complication, with long-term current use of insulin (HCC) documented in this encounter Care Teams Special Events Director Relationship Specialty Start Date End Date Corrine Vazquez MD PCP - General Family Medicine 07/07/19 08/19/[address] [place] [address] documented as of this encounter
--- OUTSIDE RECORDS SUMMARY | 2021-09-05 00:09 | XMS_ITS | Encounter Summary ---
:1945 Author Organization [facility] Address [address] [place] [address] Care Team Providers Name Role Phone Lincoln Vazquez MD Primary Care Provider Reason for Visit Reason Onset Date Comments flu shot info 11/14/2020 Encounter Details Date Type Department Care Team Description 11/14/2020 Telephone [place] Corrine Vazquez MD flu shot info [address] [place], [place] [address] [place], [place] [phone] (Wo rk) Social History Tobacco Use Types [...] or relatives? How often do you attend anglican or More than 4 times per year 12/23/2018 oriental orthodox services? Do you belong to any clubs or No 12/23/2018 organizations such as anglican groups, unions, fraternal or athletic groups, or [...] Telephone Encounter - Lana Knight LPN - 11/14/2020 11:40 AM CDT Informed her we don't carry those in our clinic. Telephone Encounter - Luciana Verena - 11/14/2020 11:10 AM CDT Pt called stating she recently got her flu shot and it was the extra strong one. Pt is wanting to make sure it was not the live dose. Please call Pt at [phone] to advise, leaving a message if noanswer. documented in this encounter Plan of Treatment Not on filedocumented as of this encounter Goals Goal Patient Goal Associated Recent Patient-Stated? Author Type Problems Progress Routine Health General No change Hailee Ramesh, Peter (02/05/2021 Abbie Murray, 11:19 AM SUPERVISOR CAPACITOR PROCESSING) RN Note: Formatting of this note is differe nt from the original. Routine Health Management Care Team Patient Care Team: Corrine Vazquez MD as PCP - General ([facility]) Yossi Potts, RN as Registered Nurse (Diabetes Education) Abbie Ramesh, RN as Batch Trucker Future Scheduled Appointments No future appointments. Health Maintenance Health Maintenance Topic Date Due Urine Protein Screening 05/31/2020 Lipid Panel 09/05/2020 Glaucoma Screening 67+ Yr 12/25/2020 Ophthalmology Exam 12/25/2020 [facility] Annual Wellness 01/12/2021 Hemoglobin A1C 01/24/2021 Diabetic [...] change (02/05/2021 11:17 AM Abbie Monzon, RN SUPERVISOR CAPACITOR PROCESSING) Note: Formatting of this note is differe nt from the original. Diabetes Management Type 2 diabetes mellitus with other spec ified complication (HCC) Managed by (PCP or Endocrinology) Dr. Vazquez (PCP ) Home Glucose tracking 1-3 times per day Diabetic medications insulin glargine (B OSIRISGLMARIANELA ROLDANEVELINEPEN) 100 UNIT/ML injection 22 units in AM [...] (02/05/2021 No Abbie Ramesh RN 11:14 AM SUPERVISOR CAPACITOR PROCESSING) Note: Formatting of this note is differe [...] on filedocumented in this encounter Care Teams Deputy Of Counter Intelligence Relationship Specialty Start Date End Date Corrine Vazquez MD PCP - General Family Medicine 07/07/19 08/19/[address] [place] [address] documented as of this encounter
--- OUTSIDE RECORDS SUMMARY | 2021-09-05 00:09 | XMS_ITS | Encounter Summary ---
:[address] [facility] Address [address] [place] [address] Care Team Providers Name Role Phone Lincoln Vazquez MD Primary Care Provider Reason for Visit Reason Comments Skin tag removal Encounter Details Date Type Department Care Team Description 11/09/2020 Office Visit Chuckie Pierre Corrine Vazquez Skin lesion (Primary Dx); [address] MD Lincoln Type 2 diabetes mellitus with other spec ified complication, with long-term current use of insulin (HCC); [place], [place] [address] Anemia, unspecified type; [phone] [place] [id number] Social History Tobacco Use Types Packs/Day Years [...] or relatives? How often do you attend adventist or More than 4 times per year 12/23/2018 yazidi services? Do you belong to any clubs or No 12/23/2018 organizations such as adventist groups, unions, fraternal or athletic groups, or [...] on file documented as of this encounter Last Filed Vital Signs Vital Sign Reading Time Taken Comments Blood Pressure 144/82 11/09/2020 2:55 PM CDT Pulse 86 11/09/2020 2:09 PM CDT Temperature 36.5 ??C (97.7 ??F) 11/09/2020 2:09 PM CDT Respiratory Rate 14 11/09/2020 2:09 PM CDT Oxygen Saturation 98% 11/09/2020 2:09 PM CDT Inhaled Oxygen Concentration - - Weight 83.9 kg (185 lb) 11/09/2020 2:09 PM CDT Height 160.3 cm (5' 3.11) 11/09/2020 2:09 PM CDT Body Mass Index 32.66 11/09/2020 2:09 PM CDT documented in this encounter Progress Notes Corrine Vazquez MD - 11/09/2020 2:20 PM CDT Estab Patient Visit Subjective Patient ID: Marcial Bazan is a 75 y.o. female. HPI the patient is here today for a couple of different reasons. HYPERTENSION patient is 75 years old she does have a history of diabetes and she has been treated with a variety different blood pressure medications for which unfortunately she has had some side effects to including the following Beta-blockers THERON inhibitors ARB therapy Norvasc Currently her blood pressure is a little bit on the higher side but she says she usually runs betterat home. She preferred not starting anything at this time however if her blood pressure continues to be more elevated would consider a very low dose of diltiazem a different type of calcium rich ora very low dose of hydrochlorothiazide that will help a little bit with fluid as well as blood pressure. The patient is also here for a lesion removal biopsy. Review of Systems Objective Physical Exam she is alert she appears comfortable her vital signs show the following Blood pressure initially 150/77 a second time was checked 142/72 her pulse 86 regular rate and rhythm temp 97.7 weight 185 pounds O2 sats 98% On the dorsum of her right forearm she has a small lesion about 2 mm across and about 2 mm above thesurface of the skin a hard llittle bit scaly that does rub against her shirt sleeves and has some bother to her. There is also some question whether or not there could be an early squamous cell cutaneous horn as such we felt that doing a biopsy and cautery would be most efficient at this time to do. Assessment/Plan Diagnoses and all orders for this visit: Skin lesion - Pathology - lidocaine 1% (XYLOCAINE) 1 % injection 20 mg Type 2 diabetes mellitus with other specified complication, with long-term current use of insulin (HCC) - metFORMIN XR (GLUCOPHAGE-XR) 500 MG 24 hr tablet; Take 1 tablet (500 mg total) by mouth 1 (one) time each day with dinner - glipiZIDE (GLUCOTROL XL) 10 MG 24 hr tablet; Take ONE pill ONCE a day for diabetes Do not crush, chew, or split. Anemia, unspecified type - ferrous sulfate 325 (65 Fe) MG tablet; Take 1 tablet (325 mg total) by mouth 1 (one) time eachday with breakfast Immunization due - Flu Vaccine High Dose 65yrs and Older IM Procedures after consent was given patient taken back to the treatment room. The lesion in question again on the midportion of the dorsum of her right forearm was first prepped with alcohol and Betadine prep. This was anesthetized with about a cc of lidocaine. We then sliced it off at the base of the lesion and sent this to be biopsy. We then cauterize the base. Band-Aid was applied. Patient was informed that if this returns as a skin cancer then definitive removal would be to return and do a complete excision at that time. documented in this encounter Plan of Treatment Not on filedocumented as of this encounter Goals Goal Patient Goal Associated Recent Patient-Stated? Author Type Problems Progress Routine Health General No change Peter Monzon (02/05/2021 Abbie Murray, 11:19 AM STONEMASON SUPERVISOR) RN Note: Formatting of this note is differe nt from the original. Routine Health Management Care Team Patient Care Team: Corrine Vazquez MD as [facility]CP - [facility] Yossi Potts, RN as Registered Nurse (Diabetes Education) Abbie Ramesh RN as Navy Airspace Officer Future Scheduled Appointments No future appointments. Health Maintenance Health Maintenance Topic Date Due Urine Protein Screening 05/31/2020 Lipid Panel 09/05/2020 Glaucoma Screening 67+ Yr 12/25/2020 Ophthalmology Exam 12/25/2020 OM Annual Wellness 01/12/2021 Hemoglobin A1C 01/24/2021 Diabetic Foot Exam 03/16/2021 Colorectal Cancer Screening: Colonoscop y 05/21/2021 Fall Risk Performed 06/05/2021 Mammogram 12/03/2021 COVID-19 Vaccine Completed [facility] Pneumococcal Vaccine: <64 Complete d [facility] Pneumococcal Vaccine: 65+ Years Co mpleted HPV Vaccines Aged Out Notes: Due: Urine Protein screening Eye exam AWV A1C Lipid panel Diabetes Management General No change (02/05/2021 11:17 AM No Abbie Ramesh RN STONEMASON SUPERVISOR) Note: Formatting of this note is differe [...] (02/05/2021 No Abbie Ramesh RN 11:14 AM STONEMASON SUPERVISOR) Note: Formatting of this note is differe nt from the original. Cardiovascular Management Essential hypertension Chronic coronary artery disease Managed by (PCP; Cardiology; [facility]) Dr. Ronak lozoya MD (PCP)/Dr. [...] Name Priority Date/Time Associated Diagnosis Comme nts PATHOLOGY Routine 11/09/2020 2:51 PM Skin lesion Results for this CDT procedure are i n the results section . documented in this encounter Results Pathology (11/09/2020 2:51 PM CDT) Specimen Anatomical Collection Method Collection Time Receive d Time (Source) Location / / Volume Laterality Skin 11/09/2020 2:51 11/12/2020 PM CDT 9:[address] [facility] - 10/18 12:08 PM CDT ? [facility] ? [address] ?[place] [address] ? Patient: ?MARCIAL BAZAN ?Procedure: ? 11/09/2020 14:51 /Age/Sex: ??1945, 75 Y, F ?Received: ?11/12/2020 09:15 ? Accession #: ?? [id number] Billing: ?[id number] ? Patient Location: [facility] ? OFFICE Ordered by: ?? LINCOLN VAZQUEZ MD ?Attending: ? LINCOLN VAZQUEZ MD ?S URGICAL PATHOLOGY FINAL REPORT SPECIMEN: (A) SKIN, MID RIGHT FOREARM DORSUM CLINICAL INFORMATION: Cutaneous horn 2-3 mm in size, ?? any sk in cancer present. GROSS DESCRIPTION: A) Received in formalin labeled mid righ t forearm, dorsum is a forbes skin shave biopsy measuring 0.5 x 0.5 x 0.2 cm. ??T here is a forbes protruding lesion measuring 0.4 x 0.4 cm. ??The specimen is bisected and completely submitted in cassette A1. REGGIE Yoder ([facility]) CM Patient's identification labels match on requisition form and bottle. DIAGNOSIS: Skin, mid forearm dorsum, right, shave b iopsy: -The specimen mostly composed of superfi cial fragments of compact keratin debris's with very focal and minimal underlying e pidermis. -Multiple deeper levels were also elevat ed. -The entire lesion cannot be evaluated d ue to the superficial nature of the specimen. Case seen with Dr. Campoverde who agrees wit h above diagnosis. <Sign Out Dr. Caceres> NOELLE APONTE MD (Electronically Signed) Reported: ??11/14/2020 ??12:08 ? Page 1 of 1 Corrine Vazquez MD LAB PATHOLOGY ORDERABLES Performing Organization Address City/State/ZIP Code Phon e Number [facility] [address] [place] [address] documented in this encounter Visit Diagnoses Diagnosis Skin lesion - Primary Unspecified disorder of skin and subcuta neous tissue Type 2 diabetes mellitus with other spec ified complication, with long-term current use of insulin (HCC) Anemia, unspecified type Immunization due documented in this encounter Administered Medications Inactive Administered Medications - up to 3 most recent administrations Medication Order MAR Action Action Date Dose Rate Site lidocaine 1% (XYLOCAINE) 1 % Given 11/09/2020 3:22 PM CDT 20 mg injection 20 mg 20 mg (2 mL), Infiltration, Once, On Thu11/09/20 at 1530, For 1 dose documented in this encounter Care Teams Client Service And Consulting Manager Relationship Specialty Start Date End Date Corrine Vazquez MD PCP - General Family Medicine 07/07/19 08/19/[address] [place] [address] documented as of this encounter
--- OUTSIDE RECORDS SUMMARY | 2021-09-05 00:09 | XMS_ITS | Encounter Summary ---
:1945 Author Organization [facility] Address [address] [place] [address] Care Team Providers Name Role Phone Lincoln Vazquez MD Primary Care Provider Reason for Visit Reason Onset Date Comments Two prescriptions 03/06/2021 Encounter Details Date Type Department Care Team Description 03/06/2021 Telephone [place] Corrine Vazquez, Two prescriptions [address] [place], [place] [address] [phone] [place] [address] ([facility]) Social History Tobacco Use Types Packs/Day Years [...] More than 4 times per year 12/23/2018 anabaptist services? Do you belong to any clubs [...] Notes Telephone Encounter - Luciana Albarado - 03/07/2021 3:56 PM CST Rx for Lancets, glucose test strips and insulin pen needles all faxed to [facility]. [employer] Telephone Encounter - Lana Knight LPN - 03/07/2021 3:34 PM CST Please fax to [facility] [employer] Telephone Encounter - Margareth Sanchez RN - 03/07/2021 3:32 PM CST ----- Message from Corrine Vazquez MD sent at 03/07/2021 3:08 PM SUPERVISOR CELLARS ----- You can fax the DME for her diabetic supplies to [facility] in [place]. Then call the patient let her know that she can rock picker her diabetic supplies at [facility] in [place]. All of her other prescriptions have gone to [facility]. ----- Message ----- From: Lana Knight LPN Sent: 03/07/2021 10:55 AM SUPERVISOR CELLARS To: Corrine Vazquez MD [employer] Telephone Encounter - Margareth Sanchez RN - 03/07/2021 2:47 PM CST Patient informed. [employer] Telephone Encounter - Corrine Vazquez MD - 03/07/2021 9:59 AM CST Let patient know that I have sent to [facility] for 2 new blood pressure medications that she can rock picker from [facility]. Remind her again to come in about a month to have her blood pressure checked and please do not forget to place the DME order for diabetic supplies to be sent to [facility] in [place]. [employer] Telephone Encounter - Margareth Sanchez RN - 03/06/2021 2:52 PM CST Please advise on medication requests to [facility]. [employer] Telephone Encounter - Luciana Albarado - 03/06/2021 2:12 PM CST Pt called to let Dr. Vazquez know she checked and yes - she would like you to go ahead and send thetwo prescriptions that were discussed at her appt to [facility]. Any questions please call Pt [phone] as necessary. [employer]OR [employer] documented in this encounter Plan of Treatment Not on filedocumented as of this encounter Goals Goal Patient Goal Associated Recent Patient-Stated? Author Type Problems Progress Routine Health General No change Peter Monzon (02/05/2021 Abbie Murray, 11:19 AM SUPERVISOR CELLARS) RN Note: Formatting of this note is differe nt from the original. Routine Health Management Care Team Patient Care Team: Corrine Vazquez MD as PCP - General ([facility]) Yossi Potts RN as Registered Nurse (Diabetes Education) Abbie Ramesh RN as Bite Block Maker Future Scheduled Appointments No future appointments. Health Maintenance Health Maintenance Topic Date Due Urine Protein Screening 05/31/2020 Lipid Panel 09/05/2020 Glaucoma Screening 67+ Yr 12/25/2020 Ophthalmology Exam 12/25/2020 [facility] Annual Wellness 01/12/2021 Hemoglobin A1C 01/24/2021 Diabetic [...] (02/05/2021 11:17 AM Abbie Monzon, RN SUPERVISOR CELLARS) Note: Formatting of this note is differe [...] (02/05/2021 No Abbie Ramesh, RN 11:14 AM SUPERVISOR CELLARS) Note: Formatting of this note is differe nt from the original. Cardiovascular Management Essential hypertension Chronic coronary artery disease Managed by (PCP; Cardiology; [facility]) Dr. Ronak lozoya MD (PCP)/Dr. [...] as of this encounter Visit Diagnoses Diagnosis Hypothyroidism, unspecified type documented in this encounter Care Teams City Jailer Relationship Specialty Start Date End Date Corrine Vazquez MD PCP - General Family Medicine 07/07/19 08/19/[address] [place] [address] documented as of this encounter
--- OUTSIDE RECORDS SUMMARY | 2021-09-05 00:09 | XMS_ITS | Encounter Summary ---
:1945 Author Organization [facility] Address [address] [place] [address] Care Team Providers Name Role Phone Lincoln Vazquez MD Primary Care Provider Encounter Details Date Type Department Care Team Description 02/13/2021 Lab [place] Type 2 diabetes mellitus wit h other specified complication, with long-term current use of insulin (HCC); [address] Type 2 diabetes mellitus wit hout complication, with long-term current use of insulin (HCC) [place], [place] [address] Social History Tobacco Use Types Packs/Day Years [...] or relatives? How often do you attend sabianism or More than 4 times per year 12/23/2018 methodist services? Do you belong to any clubs or No 12/23/2018 organizations such as sabianism groups, unions, fraternal or athletic groups, or [...] Progress Routine Health General No change No Roschen, Management (02/05/2021 Abbie Murray, 11:19 AM CELL MAKER) RN Note: Formatting of this note is differe nt from the original. Routine Health Management Care Team Patient Care Team: Corrine Vazquez MD as PCP - General ([facility]) Yossi Potts, RN as Registered Nurse (Diabetes Education) Abbie Ramesh, RN as Boat Tender Future Scheduled Appointments No future appointments. Health [...] (02/05/2021 11:17 AM No Abbie Ramesh, RN CELL MAKER) Note: Formatting of this note is differe [...] track (02/05/2021 Abbie Monzon RN 11:14 AM CELL MAKER) Note: Formatting of this note is differe nt from the original. Cardiovascular Management Essential hypertension Chronic coronary artery disease Managed by (PCP; Cardiology; [facility]) Dr. Rnoak lozoya MD (PCP)/Dr. Tena MD Last: 11/09/20 [...] with long-term current use of insulin (HCC) Type 2 diabetes mellitus without complic ation, with long-term current use of insulin (HCC) documented in this encounter Care Teams Resident Caregiver Relationship Specialty Start Date End Date Corrine Vazquez MD PCP - General Family Medicine 07/07/19 08/19/[address] [place] [address] documented as of this encounter
--- OUTSIDE RECORDS SUMMARY | 2021-09-05 00:09 | XMS_ITS | Encounter Summary ---
:1945 Author Organization [facility] Address [address] [place] [address] Care Team Providers Name Role Phone Lincoln Vazquez MD Primary Care Provider Reason for Visit Consultation (Routine) - Closed Specialty Diagnoses / Procedures Referred By Contact Refer red To Contact Family Medicine Diagnoses Enrolled in chronic care management Essential hypertension Type 2 diabetes mellitus with other specified complication, with long-term current use of insulin (HCC) Mixed hyperlipidemia Corrine Vazquez MD Care Coordination [address] [facility] [address] [place] [address] [place], [place] [phone] Referral ID Status Reason Start Date Expiration Date Visits V isits Requested Authorized [id number] Closed Specialty 02/21/2020 03/18/2021 99 99 Services Required Encounter Details Date Type Department Care Team Description 02/05/2021 Patient Outreach SE Care Coordination Abbie Ramesh Counseling and coordination of care (Primary Dx); [address] [place] [address] Terri RN Type 2 diabetes mellitus with other spec ified complication, with long-term current use of insulin (HCC); [place] [address] [address] Essential hypertension; [phone] [facility] Rheumatoid arthritis, involving unspecif ied site, unspecified whether rheumatoid factor present ([facility]) [place] [address] Social History Tobacco Use Types [...] or relatives? How often do you attend holiness or More than 4 times per year 12/23/2018 confucianism services? Do you belong to any clubs or No 12/23/2018 organizations such as holiness groups, unions, fraternal or athletic groups, or [...] encounter Progress Notes Abbie Ramesh RN - 02/05/2021 9:00 AM CST Continued Care Plan - Care Coordination Date: 02/05/2021 11:19 AM Completed CCM monthly chart review ?? Completed CCM monthly follow up with patient ?? Reviewed medication list ?? Established/Updated/Reviewed Management goals: (see below for details) ?? Cardiovascular Management ?? Diabetes Management ?? Labs due. Pended. Patient aware. Will get drawn after [place] ?? Routine Health Management ?? Follow-up plan: ?? Monthly or sooner if needed Items for Provider to address: ??? Pended labs Goals Today 12/11/20 11/02/20 07/20/20 06/22/20 General ??? Cardiovascular Management On track On track On track On track Cardiovascular Management Essential hypertension Chronic coronary artery disease Managed by (PCP; Cardiology; [facility]) Dr. Taylor MD (PCP)/Dr. Tena MD Last: 11/09/20 Due: 3 months Blood pressure goal Less than 140/90 (age 18-59) Recent blood pressures BP Readings from Last 3 Encounters: 11/09/20 144/82 10/08/20 120/80 06/19/20 120/60 Labs Lab Results Component Value Date CHOL 183 09/06/2019 HDL 37 (A) 09/06/2019 LDLCALC 99 09/06/2019 TRIG 234 (A) 09/06/2019 Medication use Notes: ??? Diabetes Management No change Improving Improving No change Improving Diabetes Management Type 2 diabetes mellitus with other specified complication (HCC) Managed by (PCP or Endocrinology) Dr. Vazquez (PCP) Home Glucose tracking 1-3 times per day Diabetic medications insulin glargine (BASAGLAR KWIKPEN) 100 UNIT/ML injection 22 units in AM glipiZIDE (GLUCOTROL XL) 10 MG 24 hr tablet 1 tablet daily metFORMIN XR (GLUCOPHATE-XR) 500 MG 24 hr 500mg daily with dinner Statin therapy Intolerance Aspirin therapy (if applicable: diagnosis IVD) Diabetic labs: Hemoglobin A1C (goal: less than 8.0) LDL (goal: less than 100) Creatinine Urine-Micro albumin / Protein Lab Results Component Value Date HGBA1C 8.4 (H) 06/15/2020 Lab Results Component Value Date LDLCALC 99 09/06/2019 CREATININE 1.2 03/16/2020 Recent Blood Pressure (goal: less than 140/90) BP Readings from Last 1 Encounters: 11/09/20 144/82 Diabetic Eye Exam (yearly) Last: 12/26/19 Diabetic Foot Exam (yearly) Last: 03/16/2020 Tobacco use Social History Tobacco Use Smoking status: Never Smoker Smokeless tobacco: Never Used Notes / Items to work on: 11/02/20: Tapering down metformin- currently taking 500mg daily ??? Routine Health Management No change On track On track On track On track Routine Health Management Care Team Patient Care Team: Corrine Vazquez MD as PCP - General (Family Medicine) Yossi Potts RN as Registered Nurse (Diabetes Education) Abbie Ramesh RN as Chiropractic Care Future Scheduled Appointments No future appointments. Health Maintenance Health Maintenance Topic Date Due ??? Urine Protein Screening 05/31/2020 ??? Lipid Panel 09/05/2020 ??? Glaucoma Screening 67+ Yr 12/25/2020 ??? Ophthalmology Exam 12/25/2020 ??? [facility] [place] 01/12/2021 ??? Hemoglobin A1C 01/24/2021 ??? Diabetic Foot Exam 03/16/2021 ??? Colorectal Cancer Screening: Colonoscopy 05/21/2021 ??? Fall Risk Performed 06/05/2021 ??? Mammogram 12/03/2021 ??? COVID-19 Vaccine Completed ? ? [facility] Pneumococcal Vaccine: <64 Completed ??? [facility] Pneumococcal Vaccine: 65+ Years Completed ??? HPV Vaccines Aged Out Notes: Due: ??? Urine Protein screening ??? Eye exam ??? AWV ??? A1C ??? Lipid panel NESE INTERPRETER documented in this encounter Plan of Treatment Not on filedocumented as of this encounter Goals Goal Patient Goal Associated Recent Patient-Stated? Author Type Problems Progress Routine Health General No change No Domitila, Management (02/05/2021 Abbie Murray, 11:19 AM JAPANESE INTERPRETER) RN Note: Formatting of this note is differe nt from the original. Routine Health Management Care Team Patient Care Team: Corrine Vazquez MD as PCP - General ([facility]) Yossi Potts RN as Registered Nurse (Diabetes Education) Abbie Ramesh RN as Chiropractic Care Future Scheduled Appointments No future appointments. Health Maintenance Health Maintenance Topic Date Due Urine Protein Screening 05/31/2020 Lipid Panel 09/05/2020 Glaucoma Screening 67+ Yr 12/25/2020 Ophthalmology Exam 12/25/2020 [facility] [place] [...] change (02/05/2021 11:17 AM Abbie Monzon, RN JAPANESE INTERPRETER) Note: Formatting of this note is differe [...] track (02/05/2021 Abbie Monzon RN 11:14 AM JAPANESE INTERPRETER) Note: Formatting of this note is differe [...] and coordination of care - Pr imary Type 2 diabetes mellitus with other spec ified complication, with long-term current use of insulin (HCC) Essential hypertension Unspecified essential hypertension Rheumatoid arthritis, involving unspecif ied site, unspecified whether rheumatoid factor present (HCC) documented in this encounter Care Teams Development Editor Relationship Specialty Start Date End Date Corrine Vazquez MD PCP - General Family Medicine 07/07/19 08/19/[address] [place] [address] documented as of this encounter
--- OUTSIDE RECORDS SUMMARY | 2021-09-05 00:09 | XMS_ITS | Encounter Summary ---
:1945 Author Organization [facility] Address [address] [place] [address] Care Team Providers Name Role Phone Lincoln Vazquez MD Primary Care Provider Encounter Details Date Type Department Care Team Description 12/10/2020 Telephone [place] Corrine Vazquez MD [address] [place], [place] [address] [place], [place] [phone] (Wo rk) Social History Tobacco Use Types [...] or relatives? How often do you attend confucianism or More than 4 times per year 12/23/2018 cheondoism services? Do you belong to any clubs or No 12/23/2018 organizations such as confucianism groups, unions, fraternal or athletic groups, or [...] Telephone Encounter - Margareth Sanchez RN - 12/10/2020 9:[address] Vazquez patient's mammogram is normal repeat in 1 year, patient informed. documented in this encounter Plan of Treatment Not on filedocumented as of this encounter Goals Goal Patient Goal Associated Recent Patient-Stated? Author Type Problems Progress Routine Health General No change Peter Monzon (02/05/2021 Abbie Murray 11:19 AM INFORMATION SYSTEMS SECURITY SPECIALIST) RN Note: Formatting of this note is differe nt from the original. Routine Health Management Care Team Patient Care Team: Corrine Vazquez MD as PCP - General ([facility] Medicine) Yossi Potts, RN as Registered Nurse (Diabetes Education) Abbie Ramesh, RN as Bow Rehairer Future Scheduled Appointments No future appointments. Health [...] change (02/05/2021 11:17 AM Abbie Monzon, RN INFORMATION SYSTEMS SECURITY SPECIALIST) Note: Formatting of this note is differe nt from the original. Diabetes Management Type 2 diabetes mellitus with other spec ified complication (HCC) Managed by (PCP or Endocrinology) Dr. Vazquez (PCP ) Home Glucose tracking 1-3 times per day Diabetic medications insulin glargine (B OSIRISGLMARIANELA CALDWELL) 100 UNIT/ML injection 22 units in [...] (02/05/2021 No Abbie Ramesh RN 11:14 AM INFORMATION SYSTEMS SECURITY SPECIALIST) Note: Formatting of this note is [...] on filedocumented in this encounter Care Teams Consumer Advocate Relationship Specialty Start Date End Date Corrine Vazquez MD PCP - General Family Medicine 07/07/19 08/19/[address] [place] [address] documented as of this encounter
--- OUTSIDE RECORDS SUMMARY | 2021-09-05 00:09 | XMS_ITS | Encounter Summary ---
:1945 Author Organization [facility] Address [address] [place] [address] Care Team Providers Name Role Phone Lincoln Vazquez MD Primary Care Provider Reason for Visit Reason Onset Date Comments med refill 01/14/2021 Encounter Details Date Type Department Care Team Description 01/14/2021 Telephone [place] Corrine Vazquez MD med refill [address] [address] [place], [place] [phone] (Wo rk) Social History Tobacco Use Types [...] or relatives? How often do you attend yazdanism or More than 4 times per year 12/23/2018 mu-ism services? Do you belong to any clubs or No 12/23/2018 organizations such as yazdanism groups, unions, fraternal or athletic groups, or [...] Telephone Encounter - Margareth Sanchez RN - 01/16/2021 8:45 AM CST Left generic message that Rx was sent. SPLICER Telephone Encounter - Corrine Vazquez MD - 01/16/2021 8:43 AM CST Rx sent to [facility] SPLICER Telephone Encounter - Luciana Albarado - 01/15/2021 2:54 PM CST Pt called stating she is out of her fluconazole and is hoping to get this ref[facility] at [facility]. Please call Pt at [phone] to advise. SPLICER Telephone Encounter - Maryse Coker - 01/14/2021 9:49 AM CST Pt is requesting a refill of fluconazole be sent to [facility] in [place]. She is out of this medication. Please advise. Thanks. SPLICER documented in this encounter Plan of Treatment Not on filedocumented as of this encounter Goals Goal Patient Goal Associated Recent Patient-Stated? Author Type Problems Progress Routine Health General No change Peter Monzon (02/05/2021 Abbie Murray, 11:19 AM PLY SPLICER) RN Note: Formatting of this note is differe nt from the original. Routine Health Management Care Team Patient Care Team: Corrine Vazquez MD as PCP - [facility] Yossi Potts, RN as Registered Nurse (Diabetes Education) Abbie Ramesh RN as Coil Winding Supervisor Future Scheduled Appointments No future appointments. Health Maintenance Health Maintenance Topic Date Due Urine Protein Screening 05/31/2020 Lipid Panel 09/05/2020 Glaucoma Screening 67+ Yr 12/25/2020 Ophthalmology Exam 12/25/2020 [facility] Annual Wellness 01/12/2021 Hemoglobin A1C 01/24/2021 Diabetic [...] (02/05/2021 11:17 AM No Abbie Ramesh, RN PLY SPLICER) Note: Formatting of this note is differe [...] (02/05/2021 No Abbie Ramesh RN 11:14 AM PLY SPLICER) Note: Formatting of this note is differe [...] as of this encounter Visit Diagnoses Diagnosis Yeast vaginitis documented in this encounter Care Teams Display Trimmer Relationship Specialty Start Date End Date Corrine Vazquez MD PCP - General Family Medicine 07/07/19 08/19/[address] [place] [address] documented as of this encounter
--- OUTSIDE RECORDS SUMMARY | 2021-09-05 00:09 | XMS_ITS | Encounter Summary ---
:1945 Author Organization [facility] Address [address] [place] [address] Care Team Providers Name Role Phone Lincoln Vazquez MD Primary Care Provider Reason for Visit Consultation (Routine) - Closed Specialty Diagnoses / Procedures Referred By Contact Refer red To Contact Family Medicine Diagnoses Enrolled in chronic care management Essential hypertension Type 2 diabetes mellitus with other specified complication, with long-term current use of insulin (HCC) Mixed hyperlipidemia Corrine Vazquez MD Care Coordination [address] [facility] [address] [place] [address], [place] [phone] Referral ID Status Reason Start Date Expiration Date Visits V isits Requested Authorized [id number] Closed Specialty 02/21/2020 03/18/2021 99 99 Services Required Encounter Details Date Type Department Care Team Description 01/08/2021 Patient Outreach Care Coordination Abbie Ramesh [facility] and [address] [place] [address] Terri RN coordination of care [place], [place] [id number] [facility] (Primary Dx) [phone] [place] [phone] Social History Tobacco Use Types Packs/Day Years [...] or relatives? How often do you attend orthodox or More than 4 times per year 12/23/2018 cheondoism services? Do you belong to any clubs or No 12/23/2018 organizations such as orthodox groups, unions, [employer] or athletic groups, or school groups? How [...] encounter Progress Notes Abbie Ramesh RN - 01/08/2021 1:00 PM CST Care Plan - Care Coordination Contact Date: 01/09/2021 3:31 PM Called for monthly follow up and progress; Left message to call back. This is first attempt to call this month. AUTHOR documented in this encounter Plan of Treatment Not on filedocumented as of this encounter Goals Goal Patient Goal Associated Recent Patient-Stated? Author Type Problems Progress Routine Health General No change No Peter Ramesh (02/05/2021 Abbie Murray, 11:19 AM GAME AUTHOR) RN Note: Formatting of this note is differe nt from the original. Routine Health Management Care Team Patient Care Team: Corrine Vazquez MD as PCP - General ([facility]) Yossi Potts, RN as Registered Nurse (Diabetes Education) Abbie Ramesh RN as Poultry And Fish Butcher Future Scheduled Appointments No future appointments. Health [...] (02/05/2021 11:17 AM No Abbie Ramesh RN GAME AUTHOR) Note: Formatting of this note is differe [...] Management General On track (02/05/2021 No Abbie aRmesh, RN 11:14 AM GAME AUTHOR) Note: Formatting of this note is differe nt from the original. Cardiovascular Management Essential hypertension Chronic coronary artery disease Managed by (PCP; Cardiology; [facility]) Dr. Ronak lozoya MD (PCP)/Dr. Tena [...] imary documented in this encounter Care Teams Supervisor Pipe Finishing Relationship Specialty Start Date End Date Corrine Vazquez MD PCP - General Family Medicine 07/07/19 08/19/[address] [place] [address] documented as of this encounter
--- OUTSIDE RECORDS SUMMARY | 2021-09-05 00:09 | XMS_ITS | Encounter Summary ---
:1945 Author Organization [facility] Address [address] [place] [address] Care Team Providers Name Role Phone Lincoln Vazquez MD Primary Care Provider Encounter Details Date Type Department Care Team Description 12/11/2020 Telephone [place] Corrine Vazquez MD [address] [place], [place] [address] [place], [place] [phone] (Wo rk) Social History Tobacco Use Types [...] or relatives? How often do you attend buddhist or More than 4 times per year 12/23/2018 jew services? Do you belong to any clubs or No 12/23/2018 organizations such as buddhist groups, unions, fraternal or athletic groups, or [...] encounter Miscellaneous Notes Telephone Encounter - Luciana Verena - 12/11/2020 4:42 PM CDT Referral faxed to [place] [facility] HERNAN[facility]Z as requested. Telephone Encounter - Margareth Sanchez RN - 12/11/2020 4:26 PM CDT Please re fax referral for [facility] HERNANDEZ documented in this encounter Plan of Treatment Not on filedocumented as of this encounter Goals Goal Patient Goal Associated Recent Patient-Stated? Author Type Problems Progress Routine Health General No change No Domitila, Peter (02/05/2021 Abbie Murray, 11:19 AM TEST HOLE DRILLER) RN Note: Formatting of this note is differe nt from the original. Routine Health Management Care Team Patient Care Team: Corrine Vazquez MD as PCP - General ([facility] Medicine) Yossi Potts RN as Registered Nurse (Diabetes Education) Abbie Ramesh RN as Yarn Skeins Examiner Future Scheduled Appointments No future appointments. Health Maintenance Health Maintenance Topic Date Due Urine Protein Screening 05/31/2020 Lipid Panel 09/05/2020 Glaucoma Screening 67+ Yr 12/25/2020 Ophthalmology Exam 12/25/2020 [facility] Annual Wellness 01/12/2021 Hemoglobin A1C 01/24/2021 Diabetic Foot Exam 03/16/2021 Colorectal Cancer Screening: Colonoscop y 05/21/2021 Fall Risk Performed 06/05/2021 Mammogram 12/03/2021 COVID-19 Vaccine Completed [facility] Pneumococcal Vaccine: <64 Complete d [facility] Pneumococcal Vaccine: 65+ Years Co mpleted HPV Vaccines Aged Out Notes: Due: Urine Protein screening Eye exam AWV A1C Lipid panel Diabetes Management General No change (02/05/2021 11:17 AM No Abbie Ramesh, RN TEST HOLE DRILLER) Note: Formatting of this note is differe [...] (02/05/2021 No Abbie Ramesh RN 11:14 AM TEST HOLE DRILLER) Note: Formatting of this note is differe [...] on filedocumented in this encounter Care Teams Cane Burner Relationship Specialty Start Date End Date Corrine Vazquez MD PCP - General Family Medicine 07/07/19 08/19/[address] [place] [address] documented as of this encounter
--- OUTSIDE RECORDS SUMMARY | 2021-09-05 00:09 | XMS_ITS | Encounter Summary ---
:1945 Author Organization [facility] Address [address] [place] [address] Care Team Providers Name Role Phone Lincoln Vazquez MD Primary Care Provider Reason for Referral Consultation (Routine) - Closed Specialty Diagnoses / Procedures Referred By Contact Refer red To Contact Diagnoses Early satiety Antonio Shipman MD [facility] [address] [place], [place] [address] [facility] [phone] [place] [address] Fax: Referral ID Status Reason Start Date Expiration Date Visits Requ ested Visits Authorized [id number] Closed 12/06/2020 2021 1 1 Reason for Visit Reason Onset Date Comments endo 11/21/2020 Encounter Details Date Type Department Care Team Description 11/21/2020 Telephone [place] Corrine Vazquez MD [facility] [address] [facility] [address] [place], [place] [address] [place], [place] [phone] (Wo rk) Social History Tobacco Use Types [...] or relatives? How often do you attend religion or More than 4 times per year 12/23/2018 sikhism services? Do you belong to any clubs or No 12/23/2018 organizations such as religion groups, [employer], [employer] or athletic groups, or school groups? How [...] this encounter Miscellaneous Notes Telephone Encounter - Abbie Ramesh RN - 12/11/2020 2:56 PM CDT Spoke to Niurkaclemencia. She has not heard anything from [facility] in [place] [facility] yet. CC called and spoke [facility] and was told there was no paperwork that was received recently for Marcial. Please re-fax the referral to [phone]. Thank you Telephone Encounter - Phoebe Donohue - 12/06/2020 3:24 PM CDT Referral faxed. Telephone Encounter - Margareth Sanchez RN - 12/06/2020 2:04 PM CDT Please fax orders to [facility] in [place]. Addendum Note - Antonio Sihpman MD - 12/06/2020 11:08 AM CDT Addended by: ANTONIO SHIPMAN on: 12/06/2020 11:08 AM Modules accepted: Orders Telephone Encounter - Corrine Vazquez MD - 12/06/2020 9:16 AM CDT Brent, I will let you manage Lurene and arranging for Endoscopy. Telephone Encounter - Lana Knight LPN - 12/06/2020 8:39 AM CDT FYI Telephone Encounter - Hali Cormier MA - 12/05/2020 1:26 PM CDT Spoke with patient who would like the referral sent for the endoscopy. She is very concerned about this procedure and wants to make sure I am put under. Patient will call insurance to find out where she can have this done and get back to us for the referral to be sent. Telephone Encounter - Sherice Sanchez - 12/05/2020 11:06 AM CDT Patient returning call. Unknown unless it is concerning her referral to GI. Please call her back Telephone Encounter - Kenia Garcia RN - 12/05/2020 10:20 AM CDT Per 06/19/[address] Shipman In terms of her stomach symptoms including occasional early satietyand occasional postprandial hunger possible hypoglycemia, I voiced concerns over possible stomach cancer or gastroparesis and recommended referral to GI for possible EGD. Patient declines. Telephone Encounter - Margareth Sanchez RN - 12/04/2020 8:30 AM CDT LMTC Telephone Encounter - Margareth Sanchez RN - 11/23/2020 8:51 AM CDT No answer. Telephone Encounter - Corrine Vazquez MD - 11/22/2020 5:50 PM CDT Call Marcial and let her know that in reviewing her chart I do not find any notation as to recommendations for endoscopy. Maybe is another word that that she was thinking of another procedure but tell her that endoscopy means taking a scope looking down into her stomach for stomach problems like ulcers and so forth. She is not due for her next colonoscopy till next year 2021. Ask her if there is something else she was thinking of her try to clarify it and then let me know Telephone Encounter - Ladi Grant - 11/21/2020 12:01 PM CDT Pt states she will go ahead with the endoscopy. documented in this encounter Plan of Treatment Scheduled Referrals Name Type Priority Associated Order Schedule Diagnoses Ambulatory External Outpatient Referral Routine Early satiety Ordered: Referral 12/06/2020 documented as of this encounter Goals Goal Patient Goal Associated Recent Patient-Stated? Author Type Problems Progress Routine Health General No change No Peter Ramesh (02/05/2021 Abbie Murray, 11:19 AM VICE PRESIDENT) RN Note: Formatting of this note is differe nt from the original. Routine Health Management Care Team Patient Care Team: Corrine Vazquez MD as PCP - General ([facility]) Yossi Potts, RN as Registered Nurse (Diabetes Education) Abbie Ramesh RN as Float Phlebotomist Future Scheduled Appointments No future appointments. Health Maintenance Health Maintenance Topic Date Due Urine Protein Screening 05/31/2020 Lipid Panel 09/05/2020 Glaucoma Screening 67+ Yr 12/25/2020 Ophthalmology Exam 12/25/2020 [facility] Annual Wellness 01/12/2021 Hemoglobin A1C 01/24/2021 Diabetic [...] (02/05/2021 11:17 AM No Abbie Ramesh RN VICE PRESIDENT) Note: Formatting of this note is differe [...] (02/05/2021 No Abbie Ramesh RN 11:14 AM VICE PRESIDENT) Note: Formatting of this note is differe [...] as of this encounter Visit Diagnoses Diagnosis Early satiety - Primary documented in this encounter Care Teams Mold Insert Changer Relationship Specialty Start Date End Date Corrine Vazquez MD PCP - General Family Medicine 07/07/19 08/19/[address] [place] [address] documented as of this encounter
--- OUTSIDE RECORDS SUMMARY | 2021-09-05 00:09 | XMS_ITS | Encounter Summary ---
:1945 Author Organization [facility] Address [address] [place] [address] Care Team Providers Name Role Phone Lincoln Vazquez MD Primary Care Provider Reason for Visit Consultation (Routine) - Authorized Specialty Diagnoses / Procedures Referred By Contact Refer red To Contact Family Medicine Diagnoses Enrolled in chronic care management Essential hypertension Type 2 diabetes mellitus with other specified complication, with long-term current use of insulin (HCC) Mixed hyperlipidemia Corrine Vazquez MD Care Coordination [address] [place] [phone] Referral ID Status Reason Start Expiration Visits Visits Date Date Requested Authorized [id number] Authorized Specialty 02/16/2021 03/18/2022 99 99 Services Required Encounter Details Date Type Department Care Team Description 03/15/2021 Patient Outreach [place] Care Coordination Abbie Ramesh [address] [place] [address] [place] [phone] Social History Tobacco Use Types Packs/Day Years [...] or relatives? How often do you attend jew or More than 4 times per year 12/23/2018 mormonism services? Do you belong to any clubs or No 12/23/2018 organizations such as jew groups, unions, fraternal or athletic groups, or [...] encounter Progress Notes Abbie Ramesh RN - 03/15/2021 8:40 AM CST Care Plan - Care Coordination Contact Date: 03/15/2021 2:29 PM Called for monthly follow up and progress; Left message to call back. This is first attempt to call this month. ORIC INTERPRETER documented in this encounter Plan of Treatment Not on filedocumented as of this encounter Goals Goal Patient Goal Associated Recent Patient-Stated? Author Type Problems Progress Routine Health General No change No Peter Ramesh (02/05/2021 Abbie Murray, 11:19 AM HISTORIC INTERPRETER) RN Note: Formatting of this note is differe nt from the original. Routine Health Management Care Team Patient Care Team: Corrine Vazquez MD as PCP - General ([facility]) Yossi Potts, RN as Registered Nurse (Diabetes Education) Abbie Ramesh RN as Hvac Operations Technician Future Scheduled Appointments No future appointments. [...] (02/05/2021 11:17 AM No Abbie Ramesh, RN HISTORIC INTERPRETER) Note: Formatting of this note is [...] (02/05/2021 No Abbie Ramesh, RN 11:14 AM HISTORIC INTERPRETER) Note: Formatting of this note is differe nt from the original. Cardiovascular Management Essential hypertension Chronic coronary artery disease Managed by (PCP; Cardiology; [facility]) Dr. Ronak lozoya MD [...] on filedocumented in this encounter Care Teams Shipping And Receiving Coordinator Relationship Specialty Start Date End Date Corrine Vazquez MD PCP - General Family Medicine 07/07/19 08/19/[address] [place] [address] documented as of this encounter
--- OUTSIDE RECORDS SUMMARY | 2021-09-05 00:09 | XMS_ITS | Encounter Summary ---
:1945 Author Organization [facility] Address [address] [place] [address] Care Team Providers Name Role Phone Lincoln Herrera MD Primary Care Provider Reason for Visit Reason Comments Diabetic Review Encounter Details Date Type Department Care Team Description 03/06/2021 Office Visit [place] Corrine Herrera Type 2 diabetes mellitus wit h other specified complication, with long-term current use of insulin (HCC) (Primary Dx); [address] MD [place] Primary hypertension; [place], [place] [address] Hypothyroidism, unspecified type [phone] [place] [address] Social History Tobacco Use Types Packs/Day Years [...] More than 4 times per year 12/23/2018 mosque services? Do you belong to any clubs or No 12/23/2018 organizations such as bahai groups, unions, fraternal or athletic groups, or [...] Comments Blood Pressure 162/86 03/06/2021 10:17 AM SOUND CONTROLLER Pulse 72 03/06/2021 10:17 AM SOUND CONTROLLER Temperature 37 ??C (98.6 ??F) 03/06/2021 9:35 AM SOUND CONTROLLER Respiratory Rate 14 03/06/2021 9:35 AM SOUND CONTROLLER Oxygen Saturation 97% 03/06/2021 9:35 AM SOUND CONTROLLER Inhaled Oxygen Concentration - - Weight 82.6 kg (182 lb) 03/06/2021 9:35 AM SOUND CONTROLLER Height 160.3 cm (5' 3.11) 03/06/2021 9:35 AM SOUND CONTROLLER Body Mass Index 32.13 03/06/2021 9:35 AM SOUND CONTROLLER documented in this encounter Progress Notes Corrine Herrera MD - 03/06/2021 9:40 AM CST Estab Patient Visit Subjective Patient ID: Marcial Adams is a 75 y.o. female. HPI the patient is here today to review her recent laboratory test get her vital signs discuss her diabetes and her blood pressure. The patient is our 75-year-old individual who has a multitude of different medical conditions well listed on her chart but includes the following INSULIN-DEPENDENT DIABETES the patient is an insulin-dependent diabetic for greater than 5 years andhas been diabetic for greater than 10 years or so. Her current diabetic medications include the following Glipizide 10 mg once a day extended release Metformin extended release 500 mg once daily she gets side effects if she takes much more than the Basaglar insulin 19 units daily. The patient's A1c runs anywhere between about 8.2 current value 8.6. She finds that her sugars dropa little too much when she takes much more insulin than what she is currently on. She had been previously taking her insulin at nighttime and had problems in the morning time with low sugars. We haveswitched her to taking her insulin in the morning time and she has not had any further problems withthis. We have discussed with her that her current A1c of 8.6 is higher than would like to see it however we also reviewed her diet with her and she has been taking way too much carbohydrates and she has been eating too many sweets in particular at least 1 probably 2 caramel rolls daily as she loves to bake. Therefore at this point in time we have asked her to reduce her carbohydrate intake by approximately one third and to increase her intake of other foods such as proteins and vegetables and whatwill happen with this. If she is unable to get her A1c improved then we will work with her increasing her insulin slowly but surely as I think she will tolerate this better. HYPERTENSION she has had some reactions or side effects to beta-blockers plus the THERON inhibitors plus the ARB therapy. She currently is on no medications but her blood pressure is obviously running too high. Therefore we have added the following 2 medications to her blood pressure regimen Hydrochlorothiazide 12.5 mg once daily Norvasc 5 mg once daily We have asked her come back in roughly a month for repeat blood pressure check. RHEUMATOID ARTHRITIS patient has a music pastor to adjust all of her rheumatological medications. PERIODIC ANXIETY we have given her a very limited amount of Xanax 15 tablets a couple refills these will last her quite a few months and she does not overuse these medications. HYPOTHYROIDISM she has been on thyroid medications for many years. Her last TSH and all of her previous ones have been really good she will be continued on her current medication at this time. She would like all of her DME supplies for her diabetic test strips and needles and so forth to be sent to [facility] in [facility] as it would be better covered there as compared to her current pharmacy. All of her other medications she like to still go to the local pharmacy. Review of Systems Objective Physical Exam Assessment/Plan Diagnoses and all orders for this visit: Type 2 diabetes mellitus with other specified complication, with long-term current use of insulin ([facility]) Primary hypertension - hydroCHLOROthiazide (HYDRODIURIL) 12.5 MG tablet; Take ONE a day in the AM for blood pressure - amLODIPine (Norvasc) 5 MG tablet; Take ONE a day for blood pressure Hypothyroidism, unspecified type The overall assessment and is as stated above Plan again at this time is to continue her current medications for diabetes and to have her try to adjust her diet to reflect her diabetic status. Recheck her A1c in 4 to 6 months. And her blood pressure medications in the form of Norvasc and hydrochlorothiazide have her come backin 1 month's time for repeat blood pressure check. Order her diabetic supplies through [facility] in [place] CONSULT TIME 25 minutes on old 25 minutes was spent in review of her chart her medications her ambulatory test and so forth D CONTROLLER Lana Bledsoe LPN - 03/06/2021 9:40 AM CST Nurse Note Family Gurinder [facility] D CONTROLLER Corrine Herrera MD - 03/06/2021 9:40 AM CST You can fax the DME for her diabetic supplies to [facility] in [place]. Then call the patient let her know that she can pick out hand her diabetic supplies at [facility] in [place]. All of her other prescriptions have gone to [facility]. D CONTROLLER documented in this encounter Miscellaneous Notes Addendum Note - Lana Bledsoe LPN - 03/06/2021 9:40 AM SOUND CONTROLLER Addended by: LANA BLEDSOE on: 03/07/2021 10:56 AM Modules accepted: Orders D CONTROLLER Addendum Note - Corrine Herrera MD - 03/06/2021 9:40 AM SOUND CONTROLLER Addended by: Corrine HERRERA on: 03/07/2021 03:08 PM Modules accepted: Orders D CONTROLLER documented in this encounter Plan of Treatment Scheduled Orders Name Type Priority Associated Diagnoses Order S chedule Hemoglobin A1c Lab Routine Type 2 diabetes mellitus w ith Expected: 03/07/2021, other specified complication , Expires: 03/07/2022 with long-term current use o f insulin (HCC) TSH Lab Routine Hypothyroidism, unspecified Expected: 03/07/2021, type Expires: 2022 documented as of this encounter Goals Goal Patient Goal Associated Recent Patient-Stated? Author Type Problems Progress Routine Health General No change No Domitila, Management (02/05/2021 Abbie Murray, 11:19 AM SOUND CONTROLLER) RN Note: Formatting of this note is differe nt from the original. Routine Health Management Care Team Patient Care Team: Corrine Herrera MD as PCP - General ([facility] Medicine) Yossi Potts, RN as Registered Nurse (Diabetes Education) Abbie Ramesh, RN as Arm Maker Future Scheduled Appointments No future appointments. [...] (02/05/2021 11:17 AM No Abbie Ramesh, RN SOUND CONTROLLER) Note: Formatting of this note is differe nt from the original. Diabetes Management Type 2 diabetes mellitus with other spec ified complication (HCC) Managed by (PCP or Endocrinology) Dr. Herrera (PCP ) Home Glucose tracking 1-3 times [...] track (02/05/2021 Abbie Monzon RN 11:14 AM SOUND CONTROLLER) Note: Formatting of this note is differe [...] current use of insulin (HCC) - Primary Primary hypertension Unspecified essential hypertension Hypothyroidism, unspecified type documented in this encounter Care Teams Agriculture Research Director Relationship Specialty Start Date End Date Corrine Herrera MD PCP - General Family Medicine 07/07/19 08/19/[address] [place] [address] documented as of this encounter
--- OUTSIDE RECORDS SUMMARY | 2021-09-05 00:09 | XMS_ITS | Encounter Summary ---
:1945 Author Organization [facility] Address [address] [place] [address] Care Team Providers Name Role Phone [place] Vazquez MD Primary Care Provider Encounter Details Date Type Department Care Team Description 11/09/2020 [facility] [address] [place], [place] [address] Social History Tobacco Use [...] or relatives? How often do you attend quaker or More than 4 times per year 12/23/2018 temple services? Do you belong to any clubs or No 12/23/2018 organizations such as quaker groups, unions, fraternal or athletic groups, or [...] Peter Ramesh (02/05/2021 Abbie Murray, 11:19 AM OFFICE SERVICES MANAGER) RN Note: Formatting of this note is differe nt from the original. Routine Health Management Care Team Patient Care Team: Corrine Vazquez MD as PCP - General ([facility] Medicine) Yossi Potts, RN as Registered Nurse (Diabetes Education) Abbie Ramesh RN as Comic Artist Future Scheduled Appointments No future appointments. Health Maintenance Health Maintenance Topic Date Due Urine Protein Screening 05/31/2020 Lipid Panel 09/05/2020 Glaucoma Screening 67+ Yr 12/25/2020 Ophthalmology Exam 12/25/2020 [facility] Annual Wellness 01/12/2021 Hemoglobin A1C 01/24/2021 Diabetic Foot Exam 03/16/2021 Colorectal Cancer Screening: Colonoscop y 05/21/2021 Fall Risk Performed 06/05/2021 Mammogram 12/03/2021 COVID-19 Vaccine Completed [facility] Pneumococcal Vaccine: <64 Complete d [facility] Pneumococcal Vaccine: 65+ Years Co mpleted HPV Vaccines Aged Out Notes: Due: Urine Protein screening Eye exam AWV A1C Lipid panel Diabetes Management General No change (02/05/2021 11:17 AM No Abbie Ramesh, RN OFFICE SERVICES MANAGER) Note: Formatting of this note is differe [...] track (02/05/2021 Abbie Monzon RN 11:14 AM OFFICE SERVICES MANAGER) Note: Formatting of this note is differe nt from the original. Cardiovascular Management Essential hypertension Chronic coronary artery disease Managed by (PCP; Cardiology; [facility]) Dr. Ronak lozoya MD [...] on filedocumented in this encounter Care Teams Betting Clerk Relationship Specialty Start Date End Date Corrine Vazquez MD PCP - General Family Medicine 07/07/19 08/19/[address] [place] [address] documented as of this encounter
--- OUTSIDE RECORDS SUMMARY | 2021-09-05 00:09 | XMS_ITS | Encounter Summary ---
:1945 Author Organization [facility] Address [address] [place] [address] Care Team Providers Name Role Phone [place] Vazquez MD Primary Care Provider Encounter Details Date Type Department Care Team Description 02/05/2021 Orders Only SE Care Coordination Corrine Vazquez Type 2 diabetes [address] [facility] MD [place] [address] specified complication, [place] with long-term current [place], [place] use of insu [place] ([facility]) [phone] (Primary Dx) Social History Tobacco Use Types Packs/Day Years [...] or relatives? How often do you attend gnosticist or More than 4 times per year 12/23/2018 druze services? Do you belong to any clubs or No 12/23/2018 organizations such as gnosticist groups, unions, fraternal or athletic groups, or [...] Peter Monzon (02/05/2021 Abbie Murray, 11:19 AM NEWSPAPER STUFFER) RN Note: Formatting of this note is differe nt from the original. Routine Health Management Care Team Patient Care Team: Corrine Vazquez MD as PCP - General ([facility] Medicine) Yossi Potts RN as Registered Nurse (Diabetes Education) Abbie Ramesh RN as Boot Turner Future Scheduled Appointments No future appointments. Health Maintenance Health Maintenance Topic Date Due Urine Protein Screening 05/31/2020 Lipid Panel 09/05/2020 Glaucoma Screening 67+ Yr 12/25/2020 Ophthalmology Exam 12/25/2020 [facility] Annual Wellness 01/12/2021 Hemoglobin A1C 01/24/2021 Diabetic Foot Exam 03/16/2021 Colorectal Cancer Screening: Colonoscop y 05/21/2021 Fall Risk Performed 06/05/2021 Mammogram 12/03/2021 COVID-19 Vaccine Completed [facility] Pneumococcal Vaccine: <64 Complete d [facility] Pneumococcal Vaccine: 65+ Years Co mpleted HPV Vaccines Aged Out Notes: Due: Urine Protein screening Eye exam AWV A1C Lipid panel Diabetes Management General No change (02/05/2021 11:17 AM No Abbie Ramesh, RN NEWSPAPER STUFFER) Note: Formatting of this note is differe [...] (02/05/2021 No Abbie Ramesh RN 11:14 AM NEWSPAPER STUFFER) Note: Formatting of this note is differe [...] documented as of this encounter Results (ABNORMAL) Microalbumin/Creatinine Ratio (02/14/2021 9:10 AM NEWSPAPER STUFFER) [facility] Method Time Signature Microalbumin,m 104.3 (H) 0.0 - 16.6 02/14/2021 [place] g/day mg/L 1:37 PM [facility] Comment: . Creatinine, Urine 257 mg/dL 02/14/2021 1:37 PM CS T [facility] Comment: No established reference range. Microalb/Creat Ratio 41 (H) 0 - 24 mg/g 02/14/2021 1:37 PM [facility] Specimen Anatomical Collection Method Collection Time Receive d Time (Source) Location / / Volume Laterality Urine (Urine, 02/14/2021 9:10 02/14/2021 Clean Catch) AM NEWSPAPER STUFFER 12:48 PM NEWSPAPER STUFFER D. [place] Vazquez MD LAB URINE ORDERABLES Performing Organization Address City/State/ZIP Code Phon e Number [facility] [address] [place] [address] documented in this encounter Visit Diagnoses Diagnosis Type 2 diabetes mellitus with other spec ified complication, with long-term current use of insulin (HCC) - Primary documented in this encounter Care Teams Plant Anatomist Relationship Specialty Start Date End Date Corrine Vazquez MD PCP - General Family Medicine 07/07/19 08/19/[address] [place] [address] documented as of this encounter
--- OUTSIDE RECORDS SUMMARY | 2021-09-05 00:09 | XMS_ITS | Encounter Summary ---
:1945 Author Organization [facility] Address [address] [place] [address] Care Team Providers Name Role Phone [place] Vazquez MD Primary Care Provider Reason for Visit Consultation (Routine) - Closed Specialty Diagnoses / Procedures Referred By Contact Refer red To Contact Family Medicine Diagnoses Enrolled in chronic care management Essential hypertension Type 2 diabetes mellitus with other specified complication, with long-term current use of insulin (HCC) Mixed hyperlipidemia Corrine Vazquez MD Care Coordination [address] [facility] [address] [place] [address] [place], [place] [phone] Referral ID Status Reason Start Date Expiration Date Visits V isits Requested Authorized [id number] Closed Specialty 02/21/2020 03/18/2021 99 99 Services Required Encounter Details Date Type Department Care Team Description 12/11/2020 Patient Outreach SE Care Coordination Abbie Ramesh Counseling and coordination of care (Primary Dx); [address] [place] [address] ERA Murray Type 2 diabetes mellitus with other spec ified complication, with long-term current use of insulin (HCC); [place] [address] [address] [facility] Essential hypertension [phone] [place] [address] Social History Tobacco Use Types [...] or relatives? How often do you attend mandaeism or More than 4 times per year 12/23/2018 pentecostalism services? Do you belong to any clubs or No 12/23/2018 organizations such as mandaeism groups, unions, fraPersonal or athletic groups, or school groups? How [...] encounter Progress Notes Abbie Ramesh RN - 12/11/2020 11:40 AM CDT Continued Care Plan - Care Coordination Date: 12/11/2020 3:11 PM Completed CCM monthly chart review ?? Completed CCM monthly follow up with patient ?? Reviewed medication list ?? Established/Updated/Reviewed Management goals: (see below for details) ?? Cardiovascular Management ?? Diabetes Management ?? Routine Health Management ?? Plans to move forward with EGD. Checked with [facility] in [place] and was told they have not received the paperwork yet. Will have [employer] oil and gas recruiter re-send. Follow-up plan: ?? Monthly or sooner if needed Items for Provider to address: ??? None Goals Today 11/02/20 07/20/20 06/22/20 05/24/20 General ??? Cardiovascular Management On track On track On track No change Cardiovascular Management Essential hypertension Chronic coronary artery disease Managed by (PCP; Cardiology; [facility]) Dr. Taylor MD (PCP)/Dr. Tena MD Last: 06/19/20 Due: 3 months Blood pressure goal Less than 140/90 (age 18-59) Recent blood pressures BP Readings from Last 3 Encounters: 11/09/20 144/82 10/08/20 120/80 06/19/20 120/60 Labs Lab Results Component Value Date CHOL 183 09/06/2019 HDL 37 (A) 09/06/2019 LDLCALC 99 09/06/2019 TRIG 234 (A) 09/06/2019 Medication use Notes: ??? Diabetes Management Improving Improving No change Improving Improving Diabetes Management Type 2 diabetes mellitus with other specified complication (HCC) Managed by (PCP or Endocrinology) Dr. Vazquez (PCP) Home Glucose tracking 1-3 times per day Diabetic medications insulin glargine (BASAGLAR KWIKPEN) 100 UNIT/ML injection 19 units in AM glipiZIDE (GLUCOTROL XL) 10 [...] taking 500mg daily ??? Routine Health Management On track On track On track On track Improving Routine Health Management Care Team Patient Care Team: Corrine Vazquez MD as PCP - General (Family Medicine) Yossi Potts, RN as Registered Nurse (Diabetes Education) Abbie Ramesh RN as Chip Person Future Scheduled Appointments No future appointments. Health Maintenance Health Maintenance Topic Date Due ??? Urine Protein Screening 05/31/2020 ??? COVID-19 Vaccine (3 - Pfizer risk 3-dose series) 06/12/2020 ??? Lipid Panel 09/05/2020 ??? Colorectal Cancer Screening: Colonoscopy 05/21/2021 ??? Glaucoma Screening 67+ Yr 12/25/2020 ??? Ophthalmology Exam 12/25/2020 ??? [facility] Annual Wellness 01/12/2021 ??? Hemoglobin A1C 01/24/2021 ??? Diabetic Foot Exam 03/16/2021 ??? Fall Risk Performed 06/05/2021 ??? Mammogram 12/03/2021 ? ? [facility] Pneumococcal Vaccine: <64 Completed ??? [facility] Pneumococcal Vaccine: 65+ Years Completed ??? HPV Vaccines Aged Out Notes: ??? Urine Protein screening due documented in this encounter Plan of Treatment Not on filedocumented as of this encounter Goals Goal Patient Goal Associated Recent Patient-Stated? Author Type Problems Progress Routine Health General No change No Domitila, Management (02/05/2021 Abbie Murray 11:19 AM SILK SCREEN LAYOUT DRAFTER) RN Note: Formatting of this note is differe nt from the original. Routine Health Management Care Team Patient Care Team: Corrine Vazquez MD as PCP - General ([facility] Medicine) Yossi Potts, RN as Registered Nurse (Diabetes Education) Abbie Ramesh RN as Chip Person Future Scheduled Appointments No future appointments. Health Maintenance Health Maintenance Topic Date Due Urine Protein Screening 05/31/2020 Lipid Panel 09/05/2020 Glaucoma Screening 67+ Yr 12/25/2020 Ophthalmology Exam 12/25/2020 [facility] [place] Wellness 01/12/2021 Hemoglobin A1C 01/24/2021 Diabetic [...] change (02/05/2021 11:17 AM Abbie Monzon, RN SILK SCREEN LAYOUT DRAFTER) Note: Formatting of this note is differe [...] (02/05/2021 No Abbie Ramesh RN 11:14 AM SILK SCREEN LAYOUT DRAFTER) Note: Formatting of this note is differe nt from the original. Cardiovascular Management Essential hypertension Chronic coronary artery disease Managed by (PCP; Cardiology; [facility]) Dr. Ronak lozoya MD (PCP)/Dr. [...] insulin (HCC) Essential hypertension Unspecified essential hypertension documented in this encounter Care Teams [employer] Music Librarian Relationship Specialty Start Date End Date Corrine Vazquez MD PCP - General Family Medicine 07/07/19 08/19/[address] [place] [address] documented as of this encounter
--- OUTSIDE RECORDS SUMMARY | 2021-09-05 00:09 | XMS_ITS | Encounter Summary ---
:1945 Author Organization [facility] Address [address] [place] [address] Care Team Providers Name Role Phone [place] Vazquez MD Primary Care Provider Reason for Visit Reason Onset Date Comments med refill 12/05/2020 Encounter Details Date Type Department Care Team Description 12/05/2020 Telephone [place] Corrine Vazquez MD med refill [address] [place], [place] [address] [place], [place] [phone] (Wo rk) Social History Tobacco Use Types [...] More than 4 times per year 12/23/2018 hoahaoism services? Do you belong to any clubs [...] Telephone Encounter - Corrine Vazquez MD - 12/05/2020 12:26 PM CDT The patient's Rx request were filled at [facility]. Telephone Encounter - Sherice Laura - 12/05/2020 11:01 AM CDT Patient needs a refill on her thyroid med and lantus pens. Send to [facility] pharmacy [facility]. documented in this encounter Plan of Treatment Not on filedocumented as of this encounter Goals Goal Patient Goal Associated Recent Patient-Stated? Author Type Problems Progress Routine Health General No change No Domitila, Management (02/05/2021 Abbie Murray, 11:19 AM WRAPPER LEAF INSPECTOR) RN Note: Formatting of this note is differe nt from the original. Routine Health Management Care Team Patient Care Team: Corrine Vazquez MD as PCP - General ([facility]) Yossi Potts, RN as Registered Nurse (Diabetes Education) Abbie Ramesh, RN as Superintendent Service Future Scheduled Appointments No future appointments. Health Maintenance Health Maintenance Topic Date Due Urine Protein Screening 05/31/2020 Lipid Panel 09/05/2020 Glaucoma Screening 67+ Yr 12/25/2020 Ophthalmology Exam 12/25/2020 [facility] Annual Wellness 01/12/2021 Hemoglobin A1C 01/24/2021 Diabetic Foot Exam 03/16/2021 Colorectal Cancer Screening: Colonoscop y 05/21/2021 Fall Risk Performed 06/05/2021 Mammogram 12/03/2021 COVID-19 Vaccine Completed [facility] Pneumococcal Vaccine: <64 Complete d [facility] Pneumococcal Vaccine: 65+ Years Co mpleted HPV Vaccines Aged Out Notes: Due: Urine Protein screening Eye exam AWV A1C Lipid panel Diabetes Management General No change (02/05/2021 11:17 AM No Abbie Ramesh, RN WRAPPER LEAF INSPECTOR) Note: Formatting of this note is differe [...] (02/05/2021 No Abbie Ramesh RN 11:14 AM WRAPPER LEAF INSPECTOR) Note: Formatting of this note is differe [...] encounter Visit Diagnoses Diagnosis Hypothyroidism, unspecified type Type 2 diabetes mellitus with other spec ified complication, without long-term current use of insulin (HCC) documented in this encounter Care Teams Mlt Relationship Specialty Start Date End Date Corrine Vazquez MD PCP - General Family Medicine 07/07/19 08/19/[address] [place] [address] documented as of this encounter
--- OUTSIDE RECORDS SUMMARY | 2021-09-05 00:10 | XMS_ITS | Encounter Summary ---
:1945 Author Organization [facility] Address [address] [place] [address] Care Team Providers Name Role Phone Lincoln Vazquez MD Primary Care Provider Encounter Details Date Type Department Care Team Description 03/16/2020 Lab [place] Hypothyroidism, unspecified type; [address] Type 2 diabetes mellitus wit h other specified complication, without long-term current use of insulin (HCC); [place], [place] [address] Type 2 diabetes mellitus wit h other specified complication, with long-term current use of insulin (HCC); [phone] Stage 3 chronic kidney disease; Abnormal liver function test; Essential hyper tension; Mixed hyperlipi demia Social History Tobacco Use Types Packs/Day Years [...] Peter Ramesh (02/05/2021 Abbie Murray, 11:19 AM CERTIFIED PROFESSIONAL CODER) RN Note: Formatting of this note is differe nt from the original. Routine Health Management Care Team Patient Care Team: Corrine Vazquez MD as PCP - General ([facility] Medicine) Yossi Potts RN as Registered Nurse (Diabetes Education) Abbie Ramesh RN as Church Worker Future Scheduled Appointments No future appointments. Health Maintenance Health Maintenance Topic Date Due Urine Protein Screening 05/31/2020 Lipid Panel 09/05/2020 Glaucoma Screening 67+ Yr 12/25/2020 Ophthalmology Exam 12/25/2020 [facility] Annual Wellness 01/12/2021 Hemoglobin A1C 01/24/2021 Diabetic Foot Exam 03/16/2021 Colorectal Cancer Screening: Colonoscop y 05/21/2021 Fall Risk Performed 06/05/2021 Mammogram 12/03/2021 COVID-19 Vaccine Completed [facility] Pneumococcal Vaccine: <64 Complete d [facility] Pneumococcal Vaccine: 65+ Years Co mpleted HPV Vaccines Aged Out Notes: Due: Urine Protein screening Eye exam AWV A1C Lipid panel Diabetes Management General No change (02/05/2021 11:17 AM No Abbie Ramesh, RN CERTIFIED PROFESSIONAL CODER) Note: Formatting of this note is differe [...] down metformin- currently takin g 500mg daily documented as of this encounter Procedures Procedure Name Priority Date/Time Associated Diagnosis Comme nts GLOMERULAR Routine 03/16/2020 10:17 Type 2 diabetes Results for this FILTRATION RATE AM CERTIFIED PROFESSIONAL CODER mellitus with other proce dure are in specified the results complication, section. without long-term current use of insulin (HCC) CBC Routine 03/16/2020 10:17 Type 2 diabetes Results for this AM CERTIFIED PROFESSIONAL CODER mellitus with other procedur e are in specified the results complication, with section. long-term current use of insulin ( HCC) Stage 3 chronic kidney disease Abnormal liver function test TSH Routine 03/16/2020 10:17 Hypothyroidism, Results for this AM CERTIFIED PROFESSIONAL CODER unspecified type procedure a re in the results section. HEMOGLOBIN A1C Routine 03/16/2020 10:17 Type 2 diabetes Result s for this AM CERTIFIED PROFESSIONAL CODER mellitus with other procedur e are in specified the results complication, section. without long-term current use of insulin (HCC) HEPATIC FUNCTION Routine 03/16/2020 10:17 Type 2 diabetes Resu lts for this PANEL AM CERTIFIED PROFESSIONAL CODER mellitus with other procedur e are in specified the results complication, with section. long-term current use of insulin ( HCC) Mixed hyperlipid emia Abnormal liver function test BASIC METABOLIC Routine 03/16/2020 10:17 Type 2 diabetes Resul ts for this PANEL AM CERTIFIED PROFESSIONAL CODER mellitus with other procedur e are in specified the results complication, section. without long-term current use of insulin (HCC) documented in this encounter Results (ABNORMAL) Glomerular filtration rate (GFR) (03/16/2020 10:17 AM CERTIFIED PROFESSIONAL CODER) P athologist Signature GFR 44 (A) 03/16/2020 [facility] 6:25 PM [facility] CENTER LABORATORY 53 (A) 03/16/2020 [facility] [place] GFR 6:25 PM CERTIFIED PROFESSIONAL CODER CENTER LABORATORY Comment: GFR calculated from serum creatinine v alue Chronic Kidney Disease less than 60 mL/m in/1.73 m2 Kidney Failure less than 15 mL/min/1.73 m2 Note: effective 07/01/06 IDMS-Traceable MDRD Study Equation used. Specimen Anatomical Collection Method Collection Time Receive d Time (Source) Location / / Volume Laterality 03/16/2020 10:17 03/16/2020 AM CERTIFIED PROFESSIONAL CODER 10:17 AM CERTIFIED PROFESSIONAL CODER Corrine Vazquez MD LAB BLOOD ORDERABLES Performing Organization Address City/[facility]/ZIP Code Phon e Number [facility] [address] [place] [phone] Liver panel (03/16/2020 10:17 AM CERTIFIED PROFESSIONAL CODER) P athologist Signature Total Protein 7.7 6.3 - 8.2 03/16/2020 [facility] g/dL 6:25 PM [facility] Albumin, Serum 4.2 3.5 - 5.0 03/16/2020 [facility] g/dL 6:25 PM [facility] Total Bilirubin <0.7 0.1 - 1.0 03/16/2020 [facility] mg/dL 6:25 PM [facility] Bilirubin, <0.1 0.0 - 0.3 03/16/2020 [facility] Direct mg/dL 6:25 PM [facility] AST 27 8 - 43 U/L 03/16/2020 [facility] 6:25 PM [facility] Alkaline 66 38 - 128 03/16/2020 [facility] Phosphatase U/L 6:25 PM [facility] ALT (SGPT) 21 0 - 34 U/L 03/16/2020 [facility] 6:25 PM [facility] C[facility] LABOR[facility]ORY Specimen Anatomical Collection Method Collection Time Receive d Time (Source) Location / / Volume Laterality Blood 03/16/2020 10:17 03/16/2020 AM CERTIFIED PROFESSIONAL CODER 5:59 PM CERTIFIED PROFESSIONAL CODER Bacilio DELA CRUZ LAB BLOOD ORDERABLES Performing Organization Address City/[facility]/ZIP Code Phon e Number [facility] [address] [place] [address] (ABNORMAL) CBC ([facility]) (03/16/2020 10:17 AM CERTIFIED PROFESSIONAL CODER) P athologist Signature WBC 7.1 3.5 - 10.5 03/16/2020 [facility] RAMIREZ K/uL 10:23 AM CERTIFIED PROFESSIONAL CODER [place] RBC 3.91 3.90 - 5.00 03/16/2020 [facility] [place]IREZ M/uL 10:23 AM CERTIFIED PROFESSIONAL CODER [place] Hemoglobin 11.5 (L) 12.0 - 15.5 03/16/2020 [facility] [place] g/dL 10:23 AM CERTIFIED PROFESSIONAL CODER [place] Hematocrit 35.5 35.0 - 44.0 03/16/2020 [facility] RAMIREZ % 10:23 AM CERTIFIED PROFESSIONAL CODER [place] Platelets 199 150 - 450 03/16/2020 [facility] RAMIREZ K/uL 10:23 AM CERTIFIED PROFESSIONAL CODER [place] MCV 90.8 81.6 - 98.3 03/16/2020 [facility] [place]IREZ fL 10:23 AM CERTIFIED PROFESSIONAL CODER [place] MCH 29.4 26.0 - 32.0 03/16/2020 [facility] RAMIREZ pg 10:23 AM CERTIFIED PROFESSIONAL CODER [place] MCHC 32.4 32.0 - 36.0 03/16/2020 [facility] [place] g/dL 10:23 AM CERTIFIED PROFESSIONAL CODER [place] RDW 13.2 11.9 - 15.5 03/16/2020 [facility] RAMIREZ % 10:23 AM CERTIFIED PROFESSIONAL CODER [place] Specimen Anatomical Collection Method Collection Time Receive d Time (Source) Location / / Volume Laterality Blood 03/16/2020 10:17 03/16/2020 AM CERTIFIED PROFESSIONAL CODER 10:21 AM [facility] Bacilio DELA CRUZ LAB BLOOD ORDERABLES Performing Organization Address City/State/ZIP Code Phon e Number [facility] [place] [address] [place] [address] (ABNORMAL) Hemoglobin A1c (03/16/2020 10:17 AM [facility]) Analysis Performed At Patho logist Time Signature Hemoglobin A1C 8.5 (H) 4.0 - 5.6 03/16/2020 [facility] % A1C 6:26 PM [facility] LABORATORY Comment: Reference Range 4.0-5.6% is for [...] (Source) Location / / Volume Laterality Blood 03/16/2020 10:17 03/16/2020 AM CERTIFIED PROFESSIONAL CODER 5:59 PM CERTIFIED PROFESSIONAL CODER Corrine Vazquez MD LAB BLOOD ORDERABLES Performing Organization Address City/[facility]/ZIP Code Phon e Number [facility] [address] [place] [address] (ABNORMAL) Basic metabolic panel (03/16/2020 10:17 AM CERTIFIED PROFESSIONAL CODER) Analysis Performed At Patho logist Time Signature Sodium 138 135 - 145 03/16/2020 [facility] mEq/L 6:25 PM [facility] Potassium 4.1 3.5 - 5.1 03/16/2020 [facility] mEq/L 6:25 PM [facility] Chloride 104 98 - 107 03/16/2020 [facility] mEq/L 6:25 PM [facility] CO2 26 22 - 29 03/16/2020 [facility] mmol/L 6:25 PM [facility] Creatinine 1.2 0.4 - 1.2 03/16/2020 [facility] mg/dL 6:25 PM [facility] BUN 27 (H) 5 - 25 03/16/2020 [facility] mg/dL 6:25 PM [facility] Glucose 154 (H) 70 - 100 03/16/2020 [facility] mg/dL 6:25 PM [facility] Calcium, 10.1 8.4 - 10.2 03/16/2020 [facility] Total,S mg/dL 6:25 PM [facility] Fasting? No 03/16/2020 [facility] RAMIREZ 10:21 AM [facility] [place] Specimen Anatomical Collection Method Collection Time Receive d Time (Source) Location / / Volume Laterality Blood 03/16/2020 10:17 03/16/2020 AM CERTIFIED PROFESSIONAL CODER 5:59 PM CERTIFIED PROFESSIONAL CODER Corrine Vazquez MD LAB BLOOD ORDERABLES Performing Organization Address City/[facility]/ZIP Code Phon e Number [facility] JAMES CUELLAR [address] [place] [address] [facility] [address] [place] [address] LABORATORY TSH (03/16/2020 10:17 AM CERTIFIED PROFESSIONAL CODER) P athologist Signature TSH, Sensitive 1.59 0.46 - 03/16/2020 [facility] MEDICA L 4.68 mIU/L 6:59 PM CERTIFIED PROFESSIONAL CODER CENTER LABORATORY Comment: The results from this or any other diagn ostic test should be used and interpreted only in the context of the overall clinical picture. Biotin levels in serum remain elevated f or up to 24 hours after oral or intravenous biotin adminis tration and may interfere with this assay to produce unr eliable results. Heterophilic antibodies in serum or plas ma samples may cause interference in immunoassays. ??Exposure to animal antigens, either in the environment or as part of treatment or imaging procedures, may have circulating anti-an imal antibodies present. These antibodies may interfere with the assay reagents to produce unreliable results. ??Results which are inconsistent with clinical observations indicate the need for additional testing. Specimen Anatomical Collection Method Collection Time Receive d Time (Source) Location / / Volume Laterality Blood 03/16/2020 10:17 03/16/2020 AM CERTIFIED PROFESSIONAL CODER 5:59 PM CERTIFIED PROFESSIONAL CODER Corrine Vazquez MD LAB BLOOD ORDERABLES Performing Organization Address City/State/ZIP Code Phon e Number [facility] [address] [place] [phone] documented in this encounter Visit Diagnoses Diagnosis Hypothyroidism, unspecified type Type 2 diabetes mellitus with other spec ified complication, without long-term current use of insulin (HCC) Type 2 diabetes mellitus with other spec ified complication, with long-term current use of insulin (HCC) Stage 3 chronic kidney disease (HCC) Abnormal liver function test Nonspecific abnormal results of liver fu nction study Essential hypertension Unspecified essential hypertension Mixed hyperlipidemia documented in this encounter Care Teams Environmental Protection Officer Relationship Specialty Start Date End Date Corrine Vazquez MD PCP - General Family Medicine 07/07/19 08/19/[address] [place] [address] documented as of this encounter
--- OUTSIDE RECORDS SUMMARY | 2021-09-05 00:10 | XMS_ITS | Encounter Summary ---
:1945 Author Organization [facility] Address [address] [place] [address] Care Team Providers Name Role Phone Ronak Patel TUFTER OPERATOR, REEFER TRUCK DRIVER Primary Care Provider Encounter Details Date Type Department Care Team Description 07/27/2020 Telephone [place] Corrine Vazquez MD [address] [place], [place] [address] [place], [place] [phone] (Wo rk) Social History Tobacco Use Types [...] or relatives? How often do you attend muslim or More than 4 times per year 12/23/2018 caodaism services? Do you belong to any clubs or No 12/23/2018 organizations such as muslim groups, unions, fraternal or athletic groups, or [...] Domitila, Management (02/05/2021 Abbie Murray, 11:19 AM ADULT PROBATION OFFICER) RN Note: Formatting of this note is differe nt from the original. Routine Health Management Care Team Patient Care Team: Corrine Vazquez MD as PCP - General ([facility] Medicine) Yossi Potts, RN as Registered Nurse (Diabetes Education) Abbie Ramesh, ERA as Director Of Clinical Services Future Scheduled Appointments No future appointments. Health [...] (02/05/2021 11:17 AM No Abbie Ramesh, RN ADULT PROBATION OFFICER) Note: Formatting of this note is differe [...] track (02/05/2021 Abbie Monzon RN 11:14 AM ADULT PROBATION OFFICER) Note: Formatting of this note is differe [...] on filedocumented in this encounter Care Teams Board Liner Operator Relationship Specialty Start Date End Date Adriane Patel APRN, REEFER TRUCK DRIVER PCP - General Family Medicine 08/20/21 [address] [place] [address] documented as of this encounter
--- OUTSIDE RECORDS SUMMARY | 2021-09-05 00:10 | XMS_ITS | Encounter Summary ---
:1945 Author Organization [facility] Address [address] [place] [address] Care Team Providers Name Role Phone Lincoln Vazquez MD Primary Care Provider Reason for Visit Reason Onset Date Comments Med Refill 03/19/2020 Encounter Details Date Type Department Care Team Description 03/19/2020 Telephone [place] Corrine Vazquez MD Med Refill [address] [place], [place] [address] [place], [place] [phone] (Wo rk) Social History Tobacco Use Types [...] More than 4 times per year 12/23/2018 pentecostal services? Do you belong to any clubs [...] Telephone Encounter - Lana Knight LPN - 03/19/2020 9:00 AM CST Noted R TENDER Telephone Encounter - Luciana Albarado - 03/19/2020 8:32 AM CST Both Rx's faxed to [facility] as requested. R TENDER Telephone Encounter - Margareth Sanchez RN - 03/19/2020 8:13 AM CST Please fax Rx for Xanax and test strips to patients pharmacy [facility]. R TENDER documented in this encounter Plan of Treatment Not on filedocumented as of this encounter Goals Goal Patient Goal Associated Recent Patient-Stated? Author Type Problems Progress Routine Health General No change Peter Monzon (02/05/2021 Abbie Murray, 11:19 AM ROVER TENDER) RN Note: Formatting of this note is differe nt from the original. Routine Health Management Care Team Patient Care Team: Corrine Vazquez MD as PCP - [facility] ([facility]) Yossi Potts, RN as Registered Nurse (Diabetes Education) Abbie Ramesh RN as Flattening Machine Operator Future Scheduled Appointments No future appointments. Health Maintenance Health Maintenance Topic Date Due Urine Protein Screening 05/31/2020 Lipid Panel 09/05/2020 Glaucoma Screening 67+ Yr 12/25/2020 Ophthalmology Exam 12/25/2020 [facility] Annual Wellness 01/12/2021 Hemoglobin A1C 01/24/2021 Diabetic [...] change (02/05/2021 11:17 AM Abbie Monzon, RN ROVER TENDER) Note: Formatting of this note is differe [...] 500mg daily documented as of this encounter Visit Diagnoses Not on filedocumented in this encounter Care Teams Industrial Robotics Mechanic Relationship Specialty Start Date End Date Corrine Vazquez MD PCP - General Family Medicine 07/07/19 08/19/[address] [place] [address] documented as of this encounter
--- OUTSIDE RECORDS SUMMARY | 2021-09-05 00:10 | XMS_ITS | Encounter Summary ---
:1945 Author Organization [facility] Address [address] [place] [address] Care Team Providers Name Role Phone Lincoln Vazquez MD Primary Care Provider Encounter Details Date Type Department Care Team Description 05/21/2020 Orders Only [place] Corrine Vazquez MD [address] [place], [place] [address] [place], [place] [phone] (Wo rk) Social History Tobacco Use Types [...] or relatives? How often do you attend taoism or More than 4 times per year 12/23/2018 lutheran services? Do you belong to any clubs or No 12/23/2018 organizations such as taoism groups, unions, fraternal or athletic groups, or [...] Domitila, Management (02/05/2021 Abbie Murray, 11:19 AM ORCHARD PRUNER) RN Note: Formatting of this note is differe nt from the original. Routine Health Management Care Team Patient Care Team: Corrine Vazquez MD as PCP - General ([facility] Medicine) Yossi Potts, RN as Registered Nurse (Diabetes Education) Abbie Ramesh, ERA as Motorized Squad Commanding Officer Future Scheduled Appointments No future appointments. [...] (02/05/2021 11:17 AM No Abbie Ramesh, RN ORCHARD PRUNER) Note: Formatting of this note is differe [...] track (02/05/2021 Abbie Monzon RN 11:14 AM ORCHARD PRUNER) Note: Formatting of this note is differe nt from the original. Cardiovascular Management Essential hypertension Chronic coronary artery disease Managed by (PCP; Cardiology; [facility]) Dr. Ronak lozoya MD [...] on filedocumented in this encounter Care Teams Build And Release Manager Relationship Specialty Start Date End Date Corrine Vazquez MD PCP - General Family Medicine 07/07/19 08/19/[address] [place] [address] documented as of this encounter
--- OUTSIDE RECORDS SUMMARY | 2021-09-05 00:10 | XMS_ITS | Encounter Summary ---
:1945 Author Organization [facility] Address [address] [place] [address] Care Team Providers Name Role Phone Lincoln Vazquez MD Primary Care Provider Reason for Visit Consultation (Routine) - Closed Specialty Diagnoses / Procedures Referred By Contact Refer red To Contact Family Medicine Diagnoses Enrolled in chronic care management Essential hypertension Type 2 diabetes mellitus with other specified complication, with long-term current use of insulin (HCC) Mixed hyperlipidemia Corrine Vazquez MD Care Coordination [address] [facility] [address] [place] [address] [place], [place] [phone] Referral ID Status Reason Start Date Expiration Date Visits V isits Requested Authorized [id number] Closed Specialty 02/21/2020 03/18/2021 99 99 Services Required Encounter Details Date Type Department Care Team Description 09/07/2020 Patient Outreach SE Care Coordination Abbie Ramesh Counseling and coordination of care (Primary Dx); [address] [place] [address] Terri RN Type 2 diabetes mellitus with other spec ified complication, with long-term current use of insulin (HCC) [place] [address] [address] [facility] [phone] [place] [address] Social History Tobacco Use Types [...] or relatives? How often do you attend uatsdin or More than 4 times per year 12/23/2018 temple services? Do you belong to any clubs or No 12/23/2018 organizations such as uatsdin groups, unions, fraEmergent Labs or athletic groups, or school groups? How [...] for the very basics like Not h eirka at all 02/21/2020 food, housing, medical care, [...] encounter Progress Notes Abbie Ramesh RN - 09/07/2020 11:40 AM CDT Care Plan - Care Coordination Contact Date: 09/07/2020 12:08 PM Called for monthly follow up and progress; Left message to call back.. This is first attempt to call this month. documented in this encounter Plan of Treatment Not on filedocumented as of this encounter Goals Goal Patient Goal Associated Recent Patient-Stated? Author Type Problems Progress Routine Health General No change Peter Monzon (02/05/2021 Abbie Murray, 11:19 AM MACHINE TAILER) RN Note: Formatting of this note is differe nt from the original. Routine Health Management Care Team Patient Care Team: Corrine Vazquez MD as PCP - General ([facility] Medicine) Yossi Potts RN as Registered Nurse (Diabetes Education) Abbie Ramesh RN as Broaching Machine Set Up Operator Future Scheduled Appointments No future appointments. Health Maintenance Health Maintenance Topic Date Due Urine Protein Screening 05/31/2020 Lipid Panel 09/05/2020 Glaucoma Screening 67+ Yr 12/25/2020 Ophthalmology Exam 12/25/2020 [facility] Annual Wellness 01/12/2021 Hemoglobin A1C [...] (02/05/2021 11:17 AM No Abbie Ramesh, RN MACHINE TAILER) Note: Formatting of this note is differe [...] (02/05/2021 No Abbie Ramesh, RN 11:14 AM MACHINE TAILER) Note: Formatting of this note is differe [...] (HCC) documented in this encounter Care Teams Dial Screw Assembler Relationship Specialty Start Date End Date Corrine Vazquez MD PCP - General Family Medicine 07/07/19 08/19/[address] [place] [address] documented as of this encounter
--- OUTSIDE RECORDS SUMMARY | 2021-09-05 00:10 | XMS_ITS | Encounter Summary ---
:1945 Author Organization Address [address] [place] [address] Care Team Providers Name Role Phone Lincoln Vazquez MD Primary Care Provider Reason for Visit Consultation (Routine) - Closed Specialty Diagnoses / Procedures Referred By Contact Refer red To Contact Family Medicine Diagnoses Enrolled in chronic care management Essential hypertension Type 2 diabetes mellitus with other specified complication, with long-term current use of insulin (HCC) Mixed hyperlipidemia Corrine Vazquez MD Care Coordination [facility] [address] [address] [address] [place], [place] [phone] Referral ID Status Reason Start Date Expiration Date Visits V isits Requested Authorized [id number] Closed Specialty 02/21/2020 03/18/2021 99 99 Services Required Encounter Details Date Type Department Care Team Description 03/23/2020 Patient Outreach SE Care Coordination Abbie Ramesh Counseling and coordination of care (Primary Dx); [address] [place] [address] ERA Murray Essential hypertension; [place] [address] [address] Type 2 diabetes mellitus wit h other specified complication, with long-term current use of insulin (HCC) [phone] [place] [address] Social History Tobacco Use Types [...] or relatives? How often do you attend sikh or More than 4 times per year 12/23/2018 catholic services? Do you belong to any clubs or No 12/23/2018 organizations such as sikh groups, unions, fraOcclutech or athletic groups, or school groups? How [...] encounter Progress Notes Abbie Ramesh RN - 03/23/2020 2:40 PM CST Care Plan - Care Coordination Contact Date: 03/23/2020 3:08 PM Called for monthly follow up and progress; Left message to call back.. This is first attempt to call this month. O TALK SHOW HOST Angie Bynum RN - 03/23/2020 2:40 PM CST Pt left her name phone number and on CCM VM. No other. Information. O TALK SHOW HOST Abbie Ramesh RN - 03/23/2020 2:40 PM CST Continued Care Plan - Care Coordination Discussion Date: 04/10/2020 3:18 PM Completed CCM monthly follow up with Marcial She continues to work towards previously set goals. Today's discussion: ??? Reviewed/Updated Care Management Goals o Diabetes o Routine Health ??? Established Care Management Goals: o Cardiovascular - Has not started amlodipine yet due to being unable to cut the pill. She has tried everything. Wondering if she could get 2.5mg tablets for 10 days then she will switch back to the 5mg tablets. Pleaseadvise. Follow-up plan: ?? Monthly calls or sooner if needed ?? Reinforced 08/09 nurse line Items for Provider to address: ??? Amlodipine Goals 03/23/20 02/21/20 12/30/19 11/25/19 11/10/19 General ??? Cardiovascular Management Cardiovascular Management Essential hypertension Chronic coronary artery disease Managed by (PCP; Cardiology; [facility]) Dr. Vazquez Last: 03/16/20 Due: Blood pressure goal Less than 140/90 (age 18-59) Recent blood pressures BP Readings from Last 3 Encounters: 03/16/20 138/76 02/21/20 134/72 01/13/20 132/80 Labs Lab Results Component Value Date CHOL 183 09/06/2019 HDL 37 (A) 09/06/2019 LDLCALC 99 09/06/2019 TRIG 234 (A) 09/06/2019 Lifestyle management (diet and exercise) Medication use amLODIPine (Norvasc) 5 MG tablet 1/2 tab daily x10 days then 1 tab daily (has not started yet) Notes: ??? Diabetes Management On track On track On track Improving Improving Diabetes Management Managed by (PCP or Endocrinology) Dr. Vazquez (PCP) Dr. Stewart Last: 09/12/19 Next appt: Lifestyle management (diet and exercise) Home Glucose tracking 1-3 times per day Diabetic medications insulin glargine (BASAGLAR KWIKPEN) 100 UNIT/ML injection 15 units in AM glipiZIDE (GLUCOTROL XL) 10 MG 24 hr tablet 1 tablet daily metFORMIN XR (GLUCOPHATE-XR) 500 MG 24 hr 2 tablets in AM and 1 tablet in PM Statin therapy Intolerance Aspirin therapy (if applicable: diagnosis IVD) Diabetic labs: Hemoglobin A1C (goal: less than 8.0) LDL (goal: less than 100) Creatinine Urine-Micro albumin / Protein Lab Results Component Value Date HGBA1C 8.5 (H) 03/16/2020 Lab Results Component Value Date LDLCALC 99 09/06/2019 CREATININE 1.2 03/16/2020 Recent Blood Pressure (goal: less than 140/90) BP Readings from Last 1 Encounters: 03/16/20 138/76 Diabetic Eye Exam (yearly) Last: 12/17/18 Diabetic Foot Exam (yearly) Last: 07/15/2018 Tobacco use Social History Tobacco Use Smoking status: Never Smoker Smokeless tobacco: Never Used Notes / Items to work on: ??? Updated foot exam- pt will discuss with PCP at next visit. At this time pt declines Podiatry and states she is able to cut her own nails. ??? Routine Health Management On track On track On track On track Improving1 Routine Health Management Care Team Patient Care Team: Corrine Vazquez MD as PCP - General (Family Medicine) JOSE DE JESUS Austin as Diabetes Management (Endocrinology) Yossi Potts, ERA as Registered Nurse (Diabetes Education) Abbie Ramesh RN as Evaluator Transfer Students Future Scheduled Appointments No future appointments. Health Maintenance Health Maintenance Topic Date Due ??? Glaucoma Screening 67+ Yr 12/18/2019 ??? Urine Protein Screening 05/31/2020 ??? Hemoglobin A1C 06/14/2020 ??? Lipid Panel 09/05/2020 ??? Mammogram 12/01/2020 ??? Ophthalmology Exam 12/25/2020 ??? Fall Risk Performed 01/12/2021 ??? [facility] [place] 01/12/2021 ??? Diabetic Foot Exam 03/16/2021 ??? Colorectal Cancer Screening: Colonoscopy 05/21/2021 ??? [facility] Pneumococcal Vaccine: 65+ Years Completed ? ? [facility] Pneumococcal Vaccine: <64 Aged Out ??? HPV Vaccines Aged Out Notes: Eye exam due 1 Progress evaluated against: Health Maintenance O TALK SHOW HOST Corrine Vazquez MD - 03/23/2020 2:40 PM CST Call Luclemencia and let her know that it is okay for her to just start taking the 5 mg tablets once a day at this time. If it is hard to cut them into she can dispense with this part of the instructions. O TALK SHOW HOST Margareth Sanchez RN - 03/23/2020 2:40 PM CST Patient informed. O TALK SHOW HOST documented in this encounter Plan of Treatment Not on filedocumented as of this encounter Goals Goal Patient Goal Associated Recent Patient-Stated? Author Type Problems Progress Routine Health General No change No Domitila, Management (02/05/2021 Abbie Murray, 11:19 AM RADIO TALK SHOW HOST) RN Note: Formatting of this note is differe nt from the original. Routine Health Management Care Team Patient Care Team: Corrine Vazquez MD as PCP - General ([facility] Medicine) Yossi Potts, RN as Registered Nurse (Diabetes Education) Abbie Ramesh, RN as Evaluator Transfer Students Future Scheduled Appointments No future appointments. Health [...] (02/05/2021 11:17 AM No Abbie Ramesh, RN RADIO TALK SHOW HOST) Note: Formatting of this note is differe [...] track (02/05/2021 Abbie Monzon RN 11:14 AM RADIO TALK SHOW HOST) Note: Formatting of this note is differe [...] and coordination of care - Pr imary Essential hypertension Unspecified essential hypertension Type 2 diabetes mellitus with other spec ified complication, with long-term current use of insulin (HCC) documented in this encounter Care Teams Tiller Man Relationship Specialty Start Date End Date Corrine Vazquez MD PCP - General Family Medicine 07/07/19 08/19/[address] [place] [address] documented as of this encounter
--- OUTSIDE RECORDS SUMMARY | 2021-09-05 00:10 | XMS_ITS | Encounter Summary ---
:[address] [facility] Address [address] [place] [address] Care Team Providers Name Role Phone Lincoln Vazquez MD Primary Care Provider Encounter Details Date Type Department Care Team Description 04/01/2020 Orders Only [place] Corrine Vazquez MD [address] [place], [place] [address] [place], [place] [phone] (Wo rk) Social History Tobacco Use Types [...] or relatives? How often do you attend baptist or More than 4 times per year 12/23/2018 latter day services? Do you belong to any clubs or No 12/23/2018 organizations such as baptist groups, unions, fraternal or athletic groups, or [...] Domitila, Management (02/05/2021 Abbie Murray, 11:19 AM BILINGUAL LEGAL ASSISTANT) RN Note: Formatting of this note is differe nt from the original. Routine Health Management Care Team Patient Care Team: Corrine Vazquez MD as PCP - General ([facility] Medicine) Yossi Potts, RN as Registered Nurse (Diabetes Education) Abbie Ramesh, ERA as Professor Of Spanish Future Scheduled Appointments No future appointments. Health [...] (02/05/2021 11:17 AM No Abbie Ramesh, RN BILINGUAL LEGAL ASSISTANT) Note: Formatting of this note is [...] on filedocumented in this encounter Care Teams Drug Counselor Relationship Specialty Start Date End Date Corrine Vazquez MD PCP - General Family Medicine 07/07/19 08/19/[address] [place] [address] documented as of this encounter
--- OUTSIDE RECORDS SUMMARY | 2021-09-05 00:10 | XMS_ITS | Encounter Summary ---
:1945 Author Organization [facility] Address [address] [place] [address] Care Team Providers Name Role Phone Lincoln Vazquez MD Primary Care Provider Reason for Visit Consultation (Routine) - Closed Specialty Diagnoses / Procedures Referred By Contact Refer red To Contact Family Medicine Diagnoses Enrolled in chronic care management Essential hypertension Type 2 diabetes mellitus with other specified complication, with long-term current use of insulin (HCC) Mixed hyperlipidemia Corrine Vazquez MD Care Coordination [facility] [address] [place], [place] [phone] Referral ID Status Reason Start Date Expiration Date Visits V isits Requested Authorized [id number] Closed Specialty 02/21/2020 03/18/2021 99 99 Services Required Encounter Details Date Type Department Care Team Description 05/24/2020 Patient Outreach SE Care Abbie Ramesh and coordination of care (Primary Dx); Aldo Murray, RN Type 2 diabetes mellitus with other spec ified complication, with long-term current use of insulin (HCC); [address] [place] [address] [address] Essential hypertension; [place] [address] [facility] Mixed hyperlipidemia [phone] [place] [phone] Social History Tobacco Use Types Packs/Day Years [...] or relatives? How often do you attend shinto or More than 4 times per year 12/23/2018 anabaptist services? Do you belong to any clubs or No 12/23/2018 organizations such as shinto groups, unions, fraternal or athletic groups, or [...] Assigned at Date Recorded Not on file COVID-19 Exposure Response Date Recorded In the last month, have you been in contact with No / Unsure 06/05/2020 10:48 AM CDT someone who was confirmed or suspected to have Coronavirus / COVID-19? documented as of this encounter Progress Notes Angie Bynum RN - 05/24/2020 1:00 PM CDT Continued Care Plan - Care Coordination Discussion Date: 05/24/2020 1:06 PM Completed CCM monthly follow up with Niurkaclemencia She continues to work towards previously set goals. Today's discussion: ??? Reviewed medication list. ??? Pt explained that she is staying with her daughter that recently had back surgery. Diabetes ??? Pt states that when she saw Dr Stewart he advised her to increase her insulin to 20 units daily. ??? Pt states she is at 20 units every morning. Pt verbalized she has had several low morning BGs with this AM being 70. ??? Pt does not like to eat in the evening and does not want to have to eat before she goes to bed at night. ??? Pt is asking if she should change her Metformin, Insulin, or Glipizide to balance her BGs better. ??? Pt did not have her BG record available at this time. Pt was advise to call back and report her BG results so that these may be sent to Dr Vazquez for advice. ??? Pt states she is having Dr Vazquez follow her Diabetes now and not Dr Stewart. Follow-up plan: ?? Monthly calls or sooner if needed ?? Reinforced 08/09 nurse line Items for Provider to address: ??? Goals Today 03/23/20 02/21/20 12/30/19 11/25/19 General ??? Cardiovascular Management No change Cardiovascular Management Essential hypertension Chronic coronary artery disease Managed by (PCP; Cardiology; [facility]) Dr. Vazquez Last: 03/16/20 Due: Blood [...] not started yet) Notes: ??? Diabetes Management Improving On track On track On track Improving Diabetes Management Managed by (PCP or Endocrinology) Dr. Vazquez (PCP) Last: 09/12/19 Next appt: Lifestyle management (diet and exercise) Home Glucose tracking 1-3 times per day Diabetic medications insulin glargine (BASAGLAR KWIKPEN) 100 UNIT/ML injection 20 units in AM glipiZIDE (GLUCOTROL XL) 10 [...] her own nails. ??? Routine Health Management Improving On track On track On track On track Routine Health Management Care Team Patient Care Team: Corrine Vazquez MD as PCP - General (Family Medicine) JOSE DE JESUS Austin as Diabetes Management (Endocrinology) Yossi Potts, RN as Registered Nurse (Diabetes Education) Abbie Ramesh RN as Shank Archer Future Scheduled Appointments No future appointments. Health Maintenance Health Maintenance Topic Date Due ??? Colorectal Cancer Screening: Colonoscopy 05/21/2021 ??? Urine Protein Screening 05/31/2020 ??? Hemoglobin A1C 06/14/2020 ??? Lipid Panel 09/05/2020 ??? Mammogram 12/01/2020 ??? Glaucoma Screening 67+ Yr 12/25/2020 ??? Ophthalmology Exam 12/25/2020 ??? Fall Risk Performed 01/12/2021 ??? [facility] Annual Wellness 01/12/2021 ??? Diabetic Foot Exam 03/16/2021 ??? COVID-19 Vaccine Completed ? ? [facility] Pneumococcal Vaccine: <64 Completed ??? [facility] Pneumococcal Vaccine: 65+ Years Completed ??? HPV Vaccines Aged Out Notes: Eye exam due Covid Vaccine [facility] 2 05/15. Abbie Ramesh RN - 05/24/2020 1:00 PM CDT Care Plan - Care Coordination Contact Date: 05/30/2020 4:04 PM Date: AM Noon PM Bedtime Comments* 05/16 123 *ice cream before bed 05/17 109 05/18 123 05/19 95 201 05/20 84 163 4 120 05/22 88 05/23 98 05/24 70 183 05/25 71 120 203 05/26 79 306 278 *17 units ice cream 05/27 129 187 170* *2 yola cracker squares 05/28 84 222* *2 yola crackers 05/29 119 139 221 05/30 105 Marcial was still concerned about having some lower numbers in the morning. She decreased her Basaglar insulin from 20 units down to 17 units. She states being instructed by Dr. Stewart previously to do this. A few days later, she also started cutting back on her Metformin to see how that goes. Typically when her readings are below 200 at bedtime, she will have a small snack. If she does not have a snack, she wakes up around 3-4am shaking and has to eat something then. Marcial is frustrated with her readings and would like to figure something out soon. She plans to getA1C drawn and then make appt with PCP towards the end of the month. CC can assist with this as needed. She would like to see PCP instead of ENDO at this time. She would also like to hold off on Diabetes education, although she did find it helpful. Please advise any insulin or medication changes at this time. documented in this encounter Plan of Treatment Not on filedocumented as of this encounter Goals Goal Patient Goal Associated Recent Patient-Stated? Author Type Problems Progress Routine Health General No change Peter Monzon (02/05/2021 Abbie Murray, 11:19 AM JACQUARD LOOM FIXER) RN Note: Formatting of this note is differe nt from the original. Routine Health Management Care Team Patient Care Team: Corrine Vazquez MD as [facility] - [facility] Yossi Potts RN as Registered Nurse (Diabetes Education) Abbie Ramesh RN as Shank Archer Future Scheduled Appointments No future appointments. Health Maintenance Health Maintenance Topic Date Due Urine Protein Screening 05/31/2020 Lipid Panel 09/05/2020 Glaucoma Screening 67+ Yr 12/25/2020 Ophthalmology Exam 12/25/2020 [facility] Annual Wellness 01/12/2021 Hemoglobin A1C 01/24/2021 Diabetic Foot Exam 03/16/2021 Colorectal Cancer Screening: Colonoscop y 05/21/2021 Fall Risk Performed 06/05/2021 Mammogram 12/03/2021 COVID-19 Vaccine Completed [facility] Pneumococcal Vaccine: <64 Complete d [facility] Pneumococcal Vaccine: 65+ Years Co mpleted HPV Vaccines Aged Out Notes: Due: Urine Protein screening Eye exam AWV A1C Lipid panel Diabetes Management General No change (02/05/2021 11:17 AM Abbie Monzon, RN JACQUARD LOOM FIXER) Note: Formatting of this note is differe [...] (02/05/2021 No Abbie Ramesh, RN 11:14 AM JACQUARD LOOM FIXER) Note: Formatting of this note is differe nt from the original. Cardiovascular Management Essential hypertension Chronic coronary artery disease Managed by (PCP; Cardiology; [facility]) Dr. Ronak lozoya MD [...] insulin (HCC) Essential hypertension Unspecified essential hypertension Mixed hyperlipidemia documented in this encounter Care Teams Facialist Relationship Specialty Start Date End Date Corrine Vazquez MD PCP - General Family Medicine 07/07/19 08/19/[address] [place] [address] documented as of this encounter
--- OUTSIDE RECORDS SUMMARY | 2021-09-05 00:10 | XMS_ITS | Encounter Summary ---
:1945 Author Organization [facility] Address [address] [place] [address] Care Team Providers Name Role Phone Lincoln Vazquez MD Primary Care Provider Reason for Visit Reason Onset Date Comments Mammogram 202003/22/2020 Encounter Details Date Type Department Care Team Description 03/22/2020 Telephone [place] Corrine Vazquez MD Mammogram [address] [place], [place] [address] [place], [place] [phone] (Wo rk) Social History Tobacco Use Types [...] or relatives? How often do you attend temple or More than 4 times per year 12/23/2018 buddhist services? Do you belong to any clubs or No 12/23/2018 organizations such as temple groups, unions, fraternal or athletic groups, or [...] Telephone Encounter - Lana Knight LPN - 03/22/2020 2:15 PM CST DONE 12/02/2019 L BOAT OPERATOR Telephone Encounter - Lana Knight LPN - 03/22/2020 2:09 PM CST The patient is due for a mammogram. The nurse is needing to know where they want it done at and when? L BOAT OPERATOR documented in this encounter Plan of Treatment Not on filedocumented as of this encounter Goals Goal Patient Goal Associated Recent Patient-Stated? Author Type Problems Progress Routine Health General No change No Domitila, Peter (02/05/2021 Abbie Murray 11:19 AM CANAL BOAT OPERATOR) RN Note: Formatting of this note is differe nt from the original. Routine Health Management Care Team Patient Care Team: Corrine Vazquez MD as [facility] Yossi Potts RN as Registered Nurse (Diabetes Education) Abbie Ramesh RN as Assistant Teacher Future Scheduled Appointments No future appointments. Health [...] (02/05/2021 11:17 AM No Abbie Ramesh, RN CANAL BOAT OPERATOR) Note: Formatting of this note is differe nt from the original. Diabetes Management Type 2 diabetes mellitus with other spec ified complication (HCC) Managed by (PCP or Endocrinology) Dr. Vazquez (PCP ) Home Glucose tracking 1-3 times per day Diabetic medications insulin glargine (Casi OLIVEIRA ROLDANSUSAN) 100 UNIT/ML injection 22 units in AM [...] on filedocumented in this encounter Care Teams Aitchbone Breaker Relationship Specialty Start Date End Date Corrine Vazquez MD PCP - General Family Medicine 07/07/19 08/19/[address] [place] [address] documented as of this encounter
--- OUTSIDE RECORDS SUMMARY | 2021-09-05 00:10 | XMS_ITS | Encounter Summary ---
:1945 Author Organization [facility] Address [address] [place] [address] Care Team Providers Name Role Phone Lincoln Vazquez MD Primary Care Provider Encounter Details Date Type Department Care Team Description 08/30/2020 Refill [place] Corrine Vazquez, Type 2 diabetes mellitus [address] MD with other specified [place], [place] [address] [address] [facility], without [phone] [place] [phone] insulin ([facility]) Social History Tobacco Use Types Packs/Day Years [...] More than 4 times per year 12/23/2018 anglican services? Do you belong to any clubs [...] Telephone Encounter - Margareth Sanchez RN - 08/30/2020 9:49 AM CDT Received fax that refill of Basaglar is needed. Lab Results Component Value Date HGBA1C 8.4 (H) 06/15/2020 documented in this encounter Plan of Treatment Not on filedocumented as of this encounter Goals Goal Patient Goal Associated Recent Patient-Stated? Author Type Problems Progress Routine Health General No change No Domitila, Management (02/05/2021 Abbie Murray, 11:19 AM LEAN PROCESS DEPLOYMENT CONSULTANT) RN Note: Formatting of this note is differe nt from the original. Routine Health Management Care Team Patient Care Team: Corrine Vazquez MD as [facility] - [facility] Yossi Potts RN as Registered Nurse (Diabetes Education) Abbie Ramesh RN as Java Oracle Developer Future Scheduled Appointments No future appointments. Health [...] (02/05/2021 11:17 AM No Abbie Ramesh, RN LEAN PROCESS DEPLOYMENT CONSULTANT) Note: Formatting of this note is [...] (02/05/2021 No Abbie Ramesh RN 11:14 AM LEAN PROCESS DEPLOYMENT CONSULTANT) Note: Formatting of this note is [...] (HCC) documented in this encounter Care Teams Blacksmith Assistant Relationship Specialty Start Date End Date Corrine Vazquez MD PCP - General Family Medicine 07/07/19 08/19/[address] [place] [address] documented as of this encounter
--- OUTSIDE RECORDS SUMMARY | 2021-09-05 00:10 | XMS_ITS | Encounter Summary ---
:1945 Author Organization [facility] Address [address] [place] [address] Care Team Providers Name Role Phone Lincoln Vazquez MD Primary Care Provider Reason for Visit Consultation (Routine) - Closed Specialty Diagnoses / Procedures Referred By Contact Refer red To Contact Family Medicine Diagnoses Enrolled in chronic care management Essential hypertension Type 2 diabetes mellitus with other specified complication, with long-term current use of insulin (HCC) Mixed hyperlipidemia Corrine Vazquez MD Care Coordination [address] [facility] [address] [place] [address] [place], [place] [phone] Referral ID Status Reason Start Date Expiration Date Visits V isits Requested Authorized [id number] Closed Specialty 02/21/2020 03/18/2021 99 99 Services Required Encounter Details Date Type Department Care Team Description 11/02/2020 Patient Outreach SE Care Coordination Abbie Ramesh Counseling and coordination of care (Primary Dx); [address] [place] [address] ERA Murray Type 2 diabetes mellitus with other spec ified complication, with long-term current use of insulin (HCC); [place] [address] [address] [facility] Essential hypertension [phone] [place] [address] Social History Tobacco Use Types [...] or relatives? How often do you attend adventism or More than 4 times per year 12/23/2018 advent services? Do you belong to any clubs or No 12/23/2018 organizations such as adventism groups, unions, [employer] or athletic groups, or school groups? How [...] encounter Progress Notes Abbie Ramesh RN - 11/02/2020 2:00 PM CDT Continued Care Plan - Care Coordination Date: 11/02/2020 4:22 PM Completed CCM monthly chart review ?? Completed CCM monthly follow up with patient ?? Reviewed medication list ?? Established/Updated/Reviewed Management goals: (see below for details) ?? Cardiovascular Management ?? Diabetes Management ?? Has been tapering down metformin. Currently taking 500mg daily. Is feeling much better since decreasing dose. Blood sugar readings have remained within goal. ?? Routine Health Management Follow-up plan: ?? Monthly or sooner if needed Items for Provider to address: ??? Due: ??? Lipid panel ??? Microalbumin/Creatinine Goals Today 07/20/20 06/22/20 05/24/20 03/23/20 General ??? Cardiovascular Management On track On track No change Cardiovascular Management Essential hypertension Chronic coronary artery disease Managed by (PCP; Cardiology; [facility]) Dr. Taylor MD (PCP)/Dr. Tena MD Last: 06/19/20 Due: 3 months Blood pressure goal Less than 140/90 (age 18-59) Recent blood pressures BP Readings from Last 3 Encounters: 06/19/20 120/60 06/05/20 140/80 03/16/20 138/76 Labs Lab Results Component Value Date CHOL 183 09/06/2019 HDL 37 (A) 09/06/2019 LDLCALC 99 09/06/2019 TRIG 234 (A) 09/06/2019 Medication use amLODIPine (Norvasc) 5 MG tablet 1 tablet daily Notes: ??? Diabetes Management Improving No change Improving Improving On track Diabetes Management Type 2 diabetes mellitus with [...] 140/90) BP Readings from Last 1 Encounters: 10/08/20 120/80 Diabetic Eye Exam (yearly) Last: 12/26/19 Diabetic Foot Exam (yearly) Last: 03/16/2020 Tobacco use Social History Tobacco Use Smoking status: Never Smoker Smokeless tobacco: Never Used Notes / Items to work on: 11/02/20: Tapering down metformin- currently taking 500mg daily ??? Routine Health Management On track On track On track Improving On track Routine Health Management Care Team Patient Care Team: Corrine Vazquez MD as PCP - General (Family Medicine) Yossi Potts RN as Registered Nurse (Diabetes Education) Abbie Ramesh RN as Custody Assistant Future Scheduled Appointments No future appointments. Health Maintenance Health Maintenance Topic Date Due ??? Urine Protein Screening 05/31/2020 ??? COVID-19 Vaccine (3 - Pfizer risk 3-dose series) 06/12/2020 ??? Lipid Panel 09/05/2020 ??? Hemoglobin A1C 10/25/2020 ??? Mammogram 12/01/2020 ??? Colorectal Cancer Screening: Colonoscopy 05/21/2021 ??? Glaucoma Screening 67+ Yr 12/25/2020 ??? Ophthalmology Exam 12/25/2020 ??? [facility] Annual Wellness 01/12/2021 ??? Diabetic Foot Exam 03/16/2021 ??? Fall Risk Performed 06/05/2021 ? ? [facility] Pneumococcal Vaccine: <64 Completed ??? [facility] Pneumococcal Vaccine: 65+ Years Completed ??? HPV Vaccines Aged Out Notes: ??? Urine Protein screening due documented in this encounter Plan of Treatment Not on filedocumented as of this encounter Goals Goal Patient Goal Associated Recent Patient-Stated? Author Type Problems Progress Routine Health General No change No Domitila, Management (02/05/2021 Abbie Murray, 11:19 AM GERICARE AIDE) RN Note: Formatting of this note is differe nt from the original. Routine Health Management Care Team Patient Care Team: Corrine Vazquez MD as PCP - General ([facility] Medicine) Yossi Potts RN as Registered Nurse (Diabetes Education) Abbie Ramesh RN as Custody Assistant Future Scheduled Appointments No future appointments. Health Maintenance Health Maintenance Topic Date Due Urine Protein Screening 05/31/2020 Lipid Panel 09/05/2020 Glaucoma Screening 67+ Yr 12/25/2020 Ophthalmology Exam 12/25/2020 [facility] Annual Wellness 01/12/2021 Hemoglobin A1C 01/24/2021 Diabetic [...] change (02/05/2021 11:17 AM Abbie Monzon, RN GERICARE AIDE) Note: Formatting of this note is differe [...] (02/05/2021 No Abbie Ramesh RN 11:14 AM GERICARE AIDE) Note: Formatting of this note is differe [...] hypertension documented in this encounter Care Teams Assessment Coordinator Relationship Specialty Start Date End Date Corrine Vazquez MD PCP - General Family Medicine 07/07/19 08/19/[address] [place] [address] documented as of this encounter
--- OUTSIDE RECORDS SUMMARY | 2021-09-05 00:10 | XMS_ITS | Encounter Summary ---
:1945 Author Organization [facility] Address [address] [place] [address] Care Team Providers Name Role Phone Lincoln Vazquez MD Primary Care Provider Reason for Visit Consultation (Routine) - Closed Specialty Diagnoses / Procedures Referred By Contact Refer red To Contact Family Medicine Diagnoses Enrolled in chronic care management Essential hypertension Type 2 diabetes mellitus with other specified complication, with long-term current use of insulin (HCC) Mixed hyperlipidemia Corrine Vazquez MD Care Coordination [address] [place] [phone] Referral ID Status Reason Start Date Expiration Date Visits V isits Requested Authorized [id number] Closed Specialty 02/21/2020 03/18/2021 99 99 Services Required Encounter Details Date Type Department Care Team Description 04/25/2020 Patient Outreach SE Care Coordination Abbie Ramesh, [address] [place] [address] [place] [address] [place] [phone] Social History Tobacco Use Types Packs/Day Years [...] More than 4 times per year 12/23/2018 denominational services? Do you belong to any clubs or No 12/23/2018 organizations such as orthodox groups, unions, fraternal or athletic groups, or [...] encounter Progress Notes Abbie Ramesh RN - 04/25/2020 9:00 AM CST Care Plan - Care Coordination Contact Date: 04/25/2020 3:29 PM Called for monthly follow up and progress; Left message to call back.. This is first attempt to call this month. INTAKE documented in this encounter Plan of Treatment Not on filedocumented as of this encounter Goals Goal Patient Goal Associated Recent Patient-Stated? Author Type Problems Progress Routine Health General No change Peter Monzon (02/05/2021 Abbie Murray, 11:19 AM RN INTAKE) RN Note: Formatting of this note is differe nt from the original. Routine Health Management Care Team Patient Care Team: Corrine Vazquez MD as PCP - General ([facility]) Yossi Potts, RN as Registered Nurse (Diabetes Education) Abbie Ramesh RN as Executive Advisor Future Scheduled Appointments No future appointments. [...] (02/05/2021 11:17 AM No Abbie Ramesh, RN RN INTAKE) Note: Formatting of this note is differe [...] (02/05/2021 No Abbie Ramesh, RN 11:14 AM RN INTAKE) Note: Formatting of this note is differe [...] on filedocumented in this encounter Care Teams Cradle Slide Maker Relationship Specialty Start Date End Date Corrine Vazquez MD PCP - General Family Medicine 07/07/19 08/19/[address] [place] [address] documented as of this encounter
--- OUTSIDE RECORDS SUMMARY | 2021-09-05 00:10 | XMS_ITS | Encounter Summary ---
:1945 Author Organization [facility] Address [address] [place] [address] Care Team Providers Name Role Phone Lincoln Vazquez MD Primary Care Provider Reason for Visit Reason Comments Skin tags Encounter Details Date Type Department Care Team Description 10/08/2020 Office Visit [place] Corrine Vazquez Skin lesion (Primary Dx); [address] MD Lincoln Skin tag; [place], [place] [address] Asymptomatic varicose veins of both lower extremities [phone] [place] [address] Social History Tobacco Use Types Packs/Day Years [...] or relatives? How often do you attend mandaen or More than 4 times per year 12/23/2018 bahai services? Do you belong to any clubs or No 12/23/2018 organizations such as mandaen groups, unions, fraternal or athletic groups, or [...] Sign Reading Time Taken Comments Blood Pressure 120/80 10/08/2020 2:46 PM CDT Pulse 86 10/08/2020 2:46 PM CDT Temperature 36.2 ??C (97.2 ??F) 10/08/2020 2:46 PM CDT Respiratory Rate 14 10/08/2020 2:46 PM CDT Oxygen Saturation 94% 10/08/2020 2:46 PM CDT Inhaled Oxygen Concentration - - Weight 83.5 kg (184 lb) 10/08/2020 2:46 PM CDT Height 160.3 cm (5' 3.11) 10/08/2020 2:46 PM CDT Body Mass Index 32.48 10/08/2020 2:46 PM CDT documented in this encounter Progress Notes Corrine Vazquez MD - 10/08/2020 2:40 PM CDT Estab Patient Visit Subjective Patient ID: Marcial Adams is a 75 y.o. female. HPI the patient is here today for couple different reasons FIRST she has some minor varicosities of both lower extremities left greater than right but at the moment mostly superficial not symptomatic and can be just observed. SECOND she has a small skin tag on the right anterior upper chest wall area that is in the area of her bra strap and gets irritated from movement of clothing and so for that she would like removed. THIRD she has a skin lesion in the last 6 months in the mid right forearm extensor surface of right forearm and she picks at it then scabs over and then comes back again Review of Systems Objective Physical Exam she is alert she appears comfortable her vital signs show blood pressure 120/80 pulse 86 temp 97.3 current weight 184 pounds her BMI is 32.5 and O2 sats 94% On the right anterior upper chest wall just below the right collarbone and above her right breast edmond small 4 mm size skin tag that does sent over the area where her bra strap would rub. On her right forearm midportion extensor surface approximate 3 mm slightly scabbed over hardened skin lesion that has potential to be a possible squamous cell skin cancer. Assessment/Plan Diagnoses and all orders for this visit: Skin lesion Skin tag Asymptomatic varicose veins of both lower extremities The overall assessment is as stated above and the plan at this time is for the patient to return to cauterize the skin lesion and to remove and sent for biopsy the right for her skin lesion. documented in this encounter Plan of Treatment Not on filedocumented as of this encounter Goals Goal Patient Goal Associated Recent Patient-Stated? Author Type Problems Progress Routine Health General No change Peter Monzon (02/05/2021 Abbie Murray, 11:19 AM CAR TRACER) RN Note: Formatting of this note is differe nt from the original. Routine Health Management Care Team Patient Care Team: Corrine Vazquez MD as PCP - General ([facility] Medicine) Yossi Potts, RN as Registered Nurse (Diabetes Education) Abbie Ramesh, RN as Golf Course Ranger Future Scheduled Appointments No future appointments. Health Maintenance Health Maintenance Topic Date Due Urine Protein Screening 05/31/2020 Lipid Panel 09/05/2020 Glaucoma Screening 67+ Yr 12/25/2020 Ophthalmology Exam 12/25/2020 [facility] Annual Wellness 01/12/2021 Hemoglobin A1C 01/24/2021 Diabetic Foot Exam 03/16/2021 Colorectal Cancer Screening: Colonoscop y 05/21/2021 Fall Risk Performed 06/05/2021 Mammogram 12/03/2021 COVID-19 Vaccine Completed [facility] Pneumococcal Vaccine: <64 Complete d [facility] Pneumococcal Vaccine: 65+ Years Co mpleted HPV Vaccines Aged Out Notes: Due: Urine Protein screening Eye exam AWV A1C Lipid panel Diabetes Management General No change (02/05/2021 11:17 AM Abbie Monzon, RN CAR TRACER) Note: Formatting of this note is differe [...] (02/05/2021 No Abbie Ramesh RN 11:14 AM CAR TRACER) Note: Formatting of this note is differe [...] as of this encounter Visit Diagnoses Diagnosis Skin lesion - Primary Unspecified disorder of skin and subcuta neous tissue Skin tag Unspecified hypertrophic and atrophic co ndition of skin Asymptomatic varicose veins of both lowe r extremities documented in this encounter Care Teams Pet Ambassador Relationship Specialty Start Date End Date Corrine Vazquez MD PCP - General Family Medicine 07/07/19 08/19/[address] [place] [address] documented as of this encounter
--- OUTSIDE RECORDS SUMMARY | 2021-09-05 00:10 | XMS_ITS | Encounter Summary ---
:1945 Author Organization [facility] Address [address] [place] [address] Care Team Providers Name Role Phone Lincoln Vazquez MD Primary Care Provider Encounter Details Date Type Department Care Team Description 06/05/2020 Travel Social History Tobacco Use Types Packs/Day Years [...] or relatives? How often do you attend christianity or More than 4 times per year 12/23/2018 moravian services? Do you belong to any clubs or No 12/23/2018 organizations such as christianity groups, unions, fraternal or athletic groups, or [...] / COVID-19? documented as of this encounter Plan of Treatment Not on filedocumented as of this encounter Goals Goal Patient Goal Associated Recent Patient-Stated? Author Type Problems Progress Routine Health General No change Hailee Ramesh, Management (02/05/2021 Abbie J, 11:19 AM SENIOR PROCUREMENT MANAGER) RN Note: Formatting of this note is differe nt from the original. Routine Health Management Care Team Patient Care Team: Corrine Vazquez MD as PCP - General ([facility] Medicine) Yossi Potts, RN as Registered Nurse (Diabetes Education) Abbie Ramesh, RN as Metal Trimmer Future Scheduled Appointments No future appointments. Health [...] 11:17 AM No Abbie Ramesh, RN SENIOR PROCUREMENT MANAGER) Note: Formatting of this note is [...] track (02/05/2021 Abbie Monzon RN 11:14 AM SENIOR PROCUREMENT MANAGER) Note: Formatting of this note is differe nt from the original. Cardiovascular Management Essential hypertension Chronic coronary artery disease Managed by (PCP; Cardiology; [facility]) Dr. Ronak lozoya MD (PCP)/Dr. [...] on filedocumented in this encounter Care Teams Veterinary Poultry Inspector Relationship Specialty Start Date End Date Corrine Vazquez MD PCP - General Family Medicine 07/07/19 08/19/[address] [place] [address] documented as of this encounter
--- OUTSIDE RECORDS SUMMARY | 2021-09-05 00:10 | XMS_ITS | Encounter Summary ---
:1945 Author Organization [facility] Address [address] [place] [address] Care Team Providers Name Role Phone Lincoln Vazquez MD Primary Care Provider Encounter Details Date Type Department Care Team Description 07/29/2020 Orders Only [place] Corrine Vazquez MD [address] [place], [place] [address] [place], [place] [phone] (Wo rk) Social History Tobacco Use Types [...] or relatives? How often do you attend protestant or More than 4 times per year 12/23/2018 spiritism services? Do you belong to any clubs or No 12/23/2018 organizations such as protestant groups, unions, fraternal or athletic groups, or [...] Domitila, Management (02/05/2021 Abbie Murray, 11:19 AM HAM SAWYER) RN Note: Formatting of this note is differe nt from the original. Routine Health Management Care Team Patient Care Team: Corrine Vazquez MD as PCP - General ([facility] Medicine) Yossi Potts, RN as Registered Nurse (Diabetes Education) Abbie Ramesh, ERA as Personal Support Worker Future Scheduled Appointments No future appointments. [...] (02/05/2021 11:17 AM No Abbie Ramesh, RN HAM SAWYER) Note: Formatting of this note is differe [...] track (02/05/2021 Abbie Monzon RN 11:14 AM HAM SAWYER) Note: Formatting of this note is differe [...] on filedocumented in this encounter Care Teams Fancy Needleworker Relationship Specialty Start Date End Date Corrine Vazquez MD PCP - General Family Medicine 07/07/19 08/19/[address] [place] [address] documented as of this encounter
--- OUTSIDE RECORDS SUMMARY | 2021-09-05 00:10 | XMS_ITS | Encounter Summary ---
:1945 Author Organization [facility] Address [address] [place] [address] Care Team Providers Name Role Phone Lincoln Vazquez MD Primary Care Provider Reason for Visit Reason Onset Date Comments Med Refill 10/17/2020 Encounter Details Date Type Department Care Team Description 10/17/2020 Refill [place] Corrine Vazquez, Type 2 diabetes mellitus [address] [facility] [address] [place] without complication, [place], [place] [address] with long-term current [phone] [place], [place] use of insu [place] ([facility]) [phone] (Primary Dx) Social History Tobacco Use Types [...] or relatives? How often do you attend anabaptist or More than 4 times per year 12/23/2018 congregation services? Do you belong to any clubs or No 12/23/2018 organizations such as anabaptist groups, unions, fraternal or athletic groups, or [...] this encounter Miscellaneous Notes Telephone Encounter - Pam Krause LPN - 10/17/2020 3:49 PM CDT Images from the original note were not included. Pt requesting Pen Needle 4mm instead of 5mm Set up for 4mm Last visit in provider department: 10/08/2020 Last visit requested medication was discussed: 06/19/20 Upcoming appointment with provider: Visit date not found Last Rx: 10/28/19 #100 with 3 refills Requested Prescriptions Pending Prescriptions Disp Refills ??? Insulin Pen Needle 31G X 4 MM misc 100 each 3 Si (one) time each day Labs:Contains abnormal data Hemoglobin A1c Order: [id number] (suggestion) Information displayed in this report will not trend and will not trigger automated decision support. Component Ref Range & Units 07/25/20 1413 Hemoglobin A1c, B 4.2 - 5.6 % 7.7High Comment: Hemoglobin A1c values greater than or equal to 6.5 percent are diagnostic for diabetes mellitus. ??Diagnosis should be confirmed by repeat testing. ??In diabetic patients, HbA1c goals should be discussed with healthcare provider. Resulting Agency [facility] Specimen Collected: 07/25/20 14:13 Last Resulted: 07/25/20 14:31 Received From: [facility] Result Received: 09/07/20 12:06 Vitals: BP Readings from Last 2 Encounters: 10/08/20 120/80 06/19/20 120/60 documented in this encounter Plan of Treatment Not on filedocumented as of this encounter Goals Goal Patient Goal Associated Recent Patient-Stated? Author Type Problems Progress Routine Health General No change Peter Monzon (02/05/2021 Abbie Murray, 11:19 AM ENGINEER PROCESS) RN Note: Formatting of this note is differe nt from the original. Routine Health Management Care Team Patient Care Team: Corrine Vazquez MD as PCP - General ([facility]) Yossi Potts, RN as Registered Nurse (Diabetes Education) Abbie Ramesh RN as Residential Life Director Future Scheduled Appointments No future appointments. Health Maintenance Health Maintenance Topic Date Due Urine Protein Screening 05/31/2020 Lipid Panel 09/05/2020 Glaucoma Screening 67+ Yr 12/25/2020 Ophthalmology Exam 12/25/2020 [facility] Annual Wellness 01/12/2021 Hemoglobin A1C 01/24/2021 Diabetic Foot Exam 03/16/2021 Colorectal Cancer Screening: Colonoscop y 05/21/2021 Fall Risk Performed 06/05/2021 Mammogram 12/03/2021 COVID-19 Vaccine Completed [facility] Pneumococcal Vaccine: <64 Complete d [facility] Pneumococcal Vaccine: 65+ Years Co mpleted HPV Vaccines Aged Out Notes: Due: Urine Protein screening Eye exam AWV A1C Lipid panel Diabetes Management General No change (02/05/2021 11:17 AM No Abbie Ramesh RN ENGINEER PROCESS) Note: Formatting of this note is differe [...] track (02/05/2021 Abbie Monzon RN 11:14 AM ENGINEER PROCESS) Note: Formatting of this note is differe nt from the original. Cardiovascular Management Essential hypertension Chronic coronary artery disease Managed by (PCP; Cardiology; [facility]) Dr. Ronak lozoya MD (PCP)/Dr. [...] Primary documented in this encounter Care Teams Parachute Taper Relationship Specialty Start Date End Date Corrine Vazquez MD PCP - General Family Medicine 07/07/19 08/19/[address] [place] [address] documented as of this encounter
--- OUTSIDE RECORDS SUMMARY | 2021-09-05 00:10 | XMS_ITS | Encounter Summary ---
:1945 Author Organization [facility] Address [address] [place] [address] Care Team Providers Name Role Phone Lincoln Vazquez MD Primary Care Provider Reason for Visit Reason Onset Date Comments referral 03/19/2020 Encounter Details Date Type Department Care Team Description 03/19/2020 Telephone [place] Corrine Vazquez MD referral [address] [place], [place] [address] [place], [place] [phone] (Wo rk) Social History Tobacco Use Types [...] or relatives? How often do you attend druze or More than 4 times per year 12/23/2018 rastafarian services? Do you belong to any clubs or No 12/23/2018 organizations such as druze groups, unions, fraternal or athletic groups, or [...] this encounter Miscellaneous Notes Telephone Encounter - Phoebe Donohue - 03/19/2020 8:16 AM CST Referral faxed. STM[employer] TREE FARM WORKER Telephone Encounter - Margareth Sanchez RN - 03/19/2020 7:57 AM CST Please fax. STM[employer] TREE FARM WORKER Telephone Encounter - Margareth Sanchez RN - 03/19/2020 7:57 AM CST ----- Message from Corrine Vazquez MD sent at 03/17/2020 12:40 PM CHRISTMAS TREE FARM WORKER ----- I have placed an order for Marcial to get a BMD at the [facility]. Please copy and fax. STMAS TREE FARM WORKER documented in this encounter Plan of Treatment Not on filedocumented as of this encounter Goals Goal Patient Goal Associated Recent Patient-Stated? Author Type Problems Progress Routine Health General No change No Peter Ramesh (02/05/2021 Abbie Murray, 11:19 AM CHRISTMAS TREE FARM WORKER) RN Note: Formatting of this note is differe nt from the original. Routine Health Management Care Team Patient Care Team: Corrine Vazquez MD as PCP - General ([facility]) Yossi Potts, RN as Registered Nurse (Diabetes Education) Abbie Ramesh RN as Flight Hostess Future Scheduled Appointments No future appointments. Health [...] (02/05/2021 11:17 AM No Abbie Ramesh RN CHRISTMAS TREE FARM WORKER) Note: Formatting of this note is differe [...] on filedocumented in this encounter Care Teams Glass Etcher Relationship Specialty Start Date End Date Corrine Vazquez MD PCP - General Family Medicine 07/07/19 08/19/[address] [place] [address] documented as of this encounter
--- OUTSIDE RECORDS SUMMARY | 2021-09-05 00:10 | XMS_ITS | Encounter Summary ---
:1945 Author Organization [facility] Address [address] [place] [address] Care Team Providers Name Role Phone Lincoln Vazquez MD Primary Care Provider Reason for Visit Consultation (Routine) - Closed Specialty Diagnoses / Procedures Referred By Contact Refer red To Contact Family Medicine Diagnoses Enrolled in chronic care management Essential hypertension Type 2 diabetes mellitus with other specified complication, with long-term current use of insulin (HCC) Mixed hyperlipidemia Corrine Vazquez MD Care Coordination [address] [facility] [address] [place], [place] [phone] Referral ID Status Reason Start Date Expiration Date Visits V isits Requested Authorized [id number] Closed Specialty 02/21/2020 03/18/2021 99 99 Services Required Encounter Details Date Type Department Care Team Description 07/20/2020 Patient Outreach SE Care Coordination Abbie Ramesh Counseling and coordination of care (Primary Dx); [address] [place] [address] ERA Murray Type 2 diabetes mellitus with other spec ified complication, with long-term current use of insulin (HCC); [place] [address] [address] [facility] Essential hypertension [phone] [place] [address] Social History Tobacco Use Types [...] or relatives? How often do you attend advent or More than 4 times per year 12/23/2018 mandaen services? Do you belong to any clubs or No 12/23/2018 organizations such as advent groups, unions, [employer] or athletic groups, or school groups? How [...] encounter Progress Notes Abbie Ramesh RN - 07/20/2020 8:20 AM CDT Continued Care Plan - Care Coordination Date: 07/20/2020 11:10 AM Completed CCM monthly chart review ?? Called for update. Left voicemail requesting a return call ?? Reviewed medication list ?? Established/Updated/Reviewed Management goals: (see below for details) ?? Cardiovascular Management ?? Diabetes Management ?? Routine Health Management Follow-up plan: ?? ENDO appt? ?? Monthly or sooner if needed Items for Provider to address: ??? None Goals Today 06/22/20 05/24/20 03/23/20 02/21/20 General ??? Cardiovascular Management On track On track No change Cardiovascular Management Essential hypertension Chronic coronary artery disease Managed by (PCP; Cardiology; [facility]) Dr. Taylor MD (PCP)/Dr. Tena MD [...] 1 tablet daily Notes: ??? Diabetes Management No change Improving Improving On track On track Diabetes Management Type 2 diabetes mellitus with other specified complication (HCC) Managed by (PCP or Endocrinology) Dr. Vazquez (PCP) Home Glucose tracking 1-3 times per day Diabetic medications insulin glargine (BASAGLAR KWIKPEN) 100 UNIT/ML injection 19 units in AM glipiZIDE (GLUCOTROL XL) 10 MG 24 hr tablet 1 tablet daily metFORMIN XR (GLUCOPHATE-XR) 500 MG 24 hr 1000mg daily with dinner Statin therapy Intolerance Aspirin therapy (if applicable: diagnosis IVD) Diabetic labs: Hemoglobin A1C (goal: less than 8.0) LDL (goal: less than 100) Creatinine Urine-Micro albumin / Protein Lab Results Component Value Date HGBA1C 8.4 (H) 06/15/2020 Lab Results Component Value Date LDLCALC 99 09/06/2019 CREATININE 1.2 03/16/2020 Recent Blood Pressure (goal: less than 140/90) BP Readings from Last 1 Encounters: 06/19/20 120/60 Diabetic Eye Exam (yearly) Last: 12/17/18 Diabetic Foot Exam (yearly) Last: 03/16/2020 Tobacco use Social History Tobacco Use Smoking status: Never Smoker Smokeless tobacco: Never Used Notes / Items to work on: ??? 06/19/20: recommended to consider stopping the glipizide and switching to a mealtime insulin in addition to her basal insulin. Follow up with ENDO to discuss ??? Schedule appt with ENDO ??? Routine Health Management On track On track Improving On track On track Routine Health Management Care Team Patient Care Team: Corrine Vazquez MD as PCP - General (Family Medicine) Yossi Potts RN as Registered Nurse (Diabetes Education) Abbie Ramesh RN as Dermatology Specialist Future Scheduled Appointments No future appointments. Health Maintenance Health Maintenance Topic Date Due ??? Urine Protein Screening 05/31/2020 ??? Colorectal Cancer Screening: Colonoscopy 05/21/2021 ??? Lipid Panel 09/05/2020 ??? Hemoglobin A1C 09/14/2020 ??? Mammogram 12/01/2020 ??? Glaucoma Screening 67+ Yr 12/25/2020 ??? Ophthalmology Exam 12/25/2020 ??? [facility] Annual Wellness 01/12/2021 ??? Diabetic Foot Exam 03/16/2021 ??? Fall Risk Performed 06/05/2021 ??? COVID-19 Vaccine Completed ? ? [facility] Pneumococcal Vaccine: <64 Completed ??? [facility] Pneumococcal Vaccine: 65+ Years Completed ??? HPV Vaccines Aged Out Notes: ??? Urine Protein screening due Abbie Ramesh RN - 07/20/2020 8:20 AM CDT Care Coordination Post Office Clerk: Abbie Ramesh RN Date: 07/24/2020 11:45 AM ??? Marcial calls in stating she has been busy/overwhelmed lately. Has had a lot of family stuff going on. ??? Marcial states feeling tired/weak at times. Feels similar to a few years ago when she had to havea stent placed. Appt with [facility] Cardiology tomorrow. ??? Did not have any blood sugar readings to report. She plans to get some together to bring to her appt tomorrow. She states she has talked with this provider in the past regarding her diabetes. She would like to wait to schedule [facility] until after she has appt tomorrow. CC will follow up after that to discuss plan. documented in this encounter Plan of Treatment Not on filedocumented as of this encounter Goals Goal Patient Goal Associated Recent Patient-Stated? Author Type Problems Progress Routine Health General No change No Domitila Management (02/05/2021 Abbie Murray, 11:19 AM WASTEWATER PROJECT MANAGER) RN Note: Formatting of this note is differe nt from the original. Routine Health Management Care Team Patient Care Team: Corrine Vazquez MD [facility] Yossi Potts, RN as Registered Nurse (Diabetes Education) Abbie Ramesh RN as Dermatology Specialist Future Scheduled Appointments No future appointments. Health [...] (02/05/2021 11:17 AM No Abbie Ramesh RN WASTEWATER PROJECT MANAGER) Note: Formatting of this note is [...] (02/05/2021 No Abbie Ramesh, RN 11:14 AM WASTEWATER PROJECT MANAGER) Note: Formatting of this note is [...] hypertension documented in this encounter Care Teams Patient Account Representative Relationship Specialty Start Date End Date Corrine Vazquez MD PCP - General Family Medicine 07/07/19 08/19/[address] [place] [address] documented as of this encounter
--- OUTSIDE RECORDS SUMMARY | 2021-09-05 00:10 | XMS_ITS | Encounter Summary ---
:1945 Author Organization [facility] Address [address] [place] [address] Care Team Providers Name Role Phone Lincoln Vazquez MD Primary Care Provider Encounter Details Date Type Department Care Team Description 06/15/2020 Lab [place] Dizziness; [address] Chronic diarrhea; [place], [place] [address] Type 2 diabetes mellitus wit hout complication, with long-term current use of insulin (HCC); [phone] Type 2 diabetes mellitus with other specified [...] or relatives? How often do you attend scientology or More than 4 times per year 12/23/2018 protestant services? Do you belong to any clubs or No 12/23/2018 organizations such as scientology groups, unions, fraternal or athletic groups, or [...] No change Hailee Ramesh, Peter (02/05/2021 Abbie Murray 11:19 AM MULTIPLE EFFECT EVAPORATOR OPERATOR) RN Note: Formatting of this note is differe nt from the original. Routine Health Management Care Team Patient Care Team: Corrine Vazquez MD as PCP - General ([facility] Medicine) Yossi Potts RN as Registered Nurse (Diabetes Education) Abbie Ramesh, ERA as Stick Puller Future Scheduled Appointments No future appointments. Health [...] change (02/05/2021 11:17 AM Abbie Monzon, RN MULTIPLE EFFECT EVAPORATOR OPERATOR) Note: Formatting of this note is [...] (02/05/2021 No Abbie Ramesh RN 11:14 AM MULTIPLE EFFECT EVAPORATOR OPERATOR) Note: Formatting of this note is [...] encounter Procedures Procedure Name Priority Date/Time Associated Comments Diagnosis CELIAC DISEASE Routine 06/15/2020 9:16 AM Chronic diarrhea Re sults for this SEROLOGY CASCADE CDT procedure a re in the results section. TISSUE Routine 06/15/2020 9:16 AM Results for this TRANSGLUTAMINASE, CDT procedure are in IGA the results section. HEMOGLOBIN A1C Routine 06/15/2020 9:16 AM Type 2 diabetes Res ults for this CDT mellitus without procedure a re in complication, with the resul ts long-term current section. use of insulin (HCC) VITAMIN B12 Routine 06/15/2020 9:16 AM Dizziness Results for this CDT procedure are i n the results section. documented in this encounter Results Tissue transglutaminase, IgA (06/15/2020 9:16 AM CDT) P athologist Signature Tiss.Transglut <1.2 <4.0 06/19/2020 [facility] aminase Ab, S (Negative) 6:51 AM CDT LABORATORIES (IgA) U/mL Comment: Test Performed by: [facility] [address] [place], [place] [address] T[address] Line Worker: Pradeep Parikh M.D. Ph. D.; CLIA# [id number] (IgA) Specimen Anatomical Collection Method Collection Time Receive d Time (Source) Location / / Volume Laterality 06/15/2020 9:16 06/15/2020 AM CDT 2:34 PM CDT Antonio Madsen MD LAB BLOOD ORDERABLES Performing Organization Address City/State/ZIP Code Phon e Number [facility] see result attachment for specific address (ABNORMAL) Hemoglobin A1c (06/15/2020 9:16 AM CDT) Analysis Performed At Path logist Time Signature Hemoglobin A1C 8.4 (H) 4.0 - 5.6 06/15/2020 [place] % A1C 2:03 PM CDT [facility] Comment: Reference Range 4.0-5.6% is for [...] (Source) Location / / Volume Laterality Blood 06/15/2020 9:16 06/15/2020 AM CDT 12:36 PM CDT Corrine Vazquez MD LAB BLOOD ORDERABLES Performing Organization Address City/State/ZIP Code Phon e Number [facility] [address] [place] [address] Celiac Disease Serology [place] (06/15/2020 9:16 AM CDT) [facility] Method Time Signature Immunoglobulin A [phone] 06/18/2020 [facility] (IgA) mg/dL 10:15 PM CDT LABORATORIES Interpretation - 06/18/2020 [facility] 10:15 PM CDT LABORATORIES Comment: Negative serology. Celiac disease unlike ly. However, approximately 10% of patients with casimiro c disease are seronegative. Also, patients who are alr claude adhering to a gluten-free diet may be seronegative. If celiac disease is highly clinically suspected, consider HL A-DQ typing. Test Performed by: [facility] [address] [place], [place] [address] Tray Line Worker: Pradeep Parikh M.D. Ph. D.; CLIA# [id number] Specimen Anatomical Collection Method Collection Time Receive d Time (Source) Location / / Volume Laterality Blood 06/15/2020 9:16 06/15/2020 AM CDT 2:34 PM CDT Antonio Madsen MD LAB BLOOD ORDERABLES Performing Organization Address City/State/ZIP Code Phon e Number [facility] see result attachment for specific address Vitamin B12 (06/15/2020 9:16 AM CDT) athologist Signature Vitamin B-12 [phone] 06/15/2020 [facility] pg/mL 2:45 PM CDT [facility]ENTER [facility] Comment: The results from this or any other diagn ostic test should be used and interpreted only in the context of the overall clinical picture. Biotin levels in serum remain elevated f or up to 24 hours after oral or intravenous biotin adminis tration and may interfere with this assay to produce unr eliable results. Exposure to animal antigens, either in t he environment or as part of treatment or imaging procedur , may have circulating anti-animal antibodies prese nt. These antibodies may interfere with the assay reagents to produce unreliable results. Specimen Anatomical Collection Method Collection Time Receive d Time (Source) Location / / Volume Laterality Blood (Blood, 06/15/2020 9:16 06/15/2020 [place]) AM CDT 12:55 PM CDT Antonio Madsen MD LAB BLOOD ORDERABLES Performing Organization Address City/State/ZIP Code Phon e Number [facility] [address] [place] [address] documented in this encounter Visit Diagnoses Diagnosis Dizziness Dizziness and giddiness Chronic diarrhea Diarrhea Type 2 diabetes mellitus without complic ation, with long-term current use of insulin (HCC) Type 2 diabetes mellitus with other spec ified complication, with long-term current use of insulin (HCC) documented in this encounter Care Teams Polarity Tester Relationship Specialty Start Date End Date Corrine Vazquez MD PCP - General Family Medicine 07/07/19 08/19/21 [address] [place] [address] documented as of this encounter
--- OUTSIDE RECORDS SUMMARY | 2021-09-05 00:10 | XMS_ITS | Encounter Summary ---
:1945 Author Organization [facility] Address [address] [place] [address] Care Team Providers Name Role Phone Lincoln Vazquez MD Primary Care Provider Reason for Visit Reason Comments Dizziness Headache Fatigue Encounter Details Date Type Department Care Team Description 06/05/2020 Office Visit [place] Antonio Madsen, Dizziness (Primary Dx); [address] Decreased vibratory sense; [place], [place] [address] Orthostatic hypotension; [address] [place], [place] Essential hypertension; [phone] Type 2 diabetes mellitus with other spec ified complication, with long-term current use of insulin ([facility]); [phone] Chronic diarrhe a; (Work) Venous insufficiency; Early sat iety Social History Tobacco Use Types Packs/Day Years [...] / COVID-19? documented as of this encounter Last Filed Vital Signs Vital Sign Reading Time Taken Comments Blood Pressure 140/80 06/05/2020 10:37 AM CDT Pulse 84 06/05/2020 12:13 PM CDT Temperature 36.3 ??C (97.4 ??F) 06/05/2020 10:37 AM CDT Respiratory Rate 15 06/05/2020 10:37 AM CDT Oxygen Saturation 99% 06/05/2020 10:37 AM CDT Inhaled Oxygen Concentration - - Weight 83.4 kg (183 lb 14.4 oz) 06/05/2020 10:37 AM CDT Height 160.3 cm (5' 3.11) 06/05/2020 10:37 AM CDT Body Mass Index 32.46 06/05/2020 10:37 AM CDT documented in this encounter Patient Instructions Patient InstructionsChasterling Madsen MD - 06/05/2020 10:40 AM CDT PLAN: Restart amlodipine. Check your Blood pressure at home several times per day and note any symptoms you have of light headedness. Could start wearing compression stockings during the day. Continue to raise head of bed slightly at night. Drink at least 8 glasses of water per day. Check your blood sugar the next time you feel very hungry after eating and let us know. If you continue to have fullness quickly after eating, let us know. You may need to see a stomach doctor for an endoscopy. documented in this encounter Progress Notes Antonio Madsen MD - 06/05/2020 10:40 AM CDT Subjective Patient ID: Marcial Adams is a 75 y.o. female. Chief Complaint Patient presents with ??? Dizziness ??? Headache ??? Fatigue HPI Patient states that she has been feeling light headed upon waking. Feels like she may lose her balance. Lasts for 3-4 hours and does not improve with eating. It initially is bad for less than an hour and then typically fades over 3-4 hours. She feels it even when lying in bed. No vertigo. Lying down or moving her head does make the problem worse. She has a history of positional vertigo, but it does not feel like that. Last episode was probably about 2-3 years ago. Has had issues with low blood sugars in the morning but states this feels different. She does not have light-headedness with her low blood sugars, and symptom of hypoglycemia she states are feeling more weak in her body in general. She takes xanax very rarely. Last taken 3 days ago at night as she was having trouble sleeping. Whenasked if this is same time as when it started, she says she thinks she had mornings of light headedness a few days even prior to the one time she took the xanax. Checks her blood sugar in the morning. She has been lowering her insulin recently because if the glucose is below 100 she has to get some juice or a cracker as she gets symptomatic (as above). So she has been 18 Units basaglar in the morning (as opposed to 20 Units). Her glucose has been 109-129 fasting in the morning. Supper is her biggest meal. Before bed at night her blood sugar is in the 200s. If it is in the 150s she will have a snack before bed because it will be too low in the morning if shedoes not take a snack. She has not done nutrition consult in a while she states. Has been experiencing early satiety for the past 1-2 months; this occurs sometimes. For example, eats part of a cheeseburger but cannot finish it. She also has episodes where she eats a normal meal butthen feels very hungry just 30 minutes later. No loss of consciousness, no shortness of breath during the episodes, no pre- syncope, no chest pain,no nausea, no palpitations. This morning her light headedness resovled by 930 AM. She was up at 630 AM. She stopped taking amldopine because it caused diarrhea. She only tried one pill and it caused diarrhea. Diarrhea is worse with Chocolate. She had chocolate cake recently and this occurred. Taking metamucil for chronic diarrhea. This is helping. Her stools are more formed. She rarely drinks any water except with medications. She had some green tea this morning. The following portions of the patient's chart were reviewed in this encounter and updated as appropriate: Allergies Meds Problems Med Hx Surg Hx ROS ROS done as noted in HPI Objective Visit Vitals BP 140/80 (BP Location: Right arm, Patient Position: Sitting) Pulse 84 Temp 36.3 ??C (97.4 ??F) (Temporal) Resp 15 Ht 1.603 m (5' 3.11) Wt 83.4 kg (183 lb 14.4 oz) SpO2 99% BMI 32.46 kg/m?? Smoking Status Never Smoker BSA 1.93 m?? Vitals: 06/05/20 1037 06/05/20 1209 06/05/20 1211 06/05/20 1213 Orthostatic BP: 174/90 188/100 151/91 Patient Position: Sitting Lying Sitting Standing Physical Exam GEN: well appearing, no acute distress, vital signs reviewed Eyes: PERRL, EOMI EXT: ankle edema 1+ bilaterally PSYCH: normal behavior and affect NEURO: Head impulse negative, test of skew negative, no nystagmus. Normal finger-nose testing. Patellar and brachial reflexes 2+ bilaterally. Normal tone. Decreased vibratory sensation on great toes bilaterally with left worse than right. Monofilament normal 5/5 sites bilaterally. Normal propriceptionof great toes bilaterally. 08/07/2016: CBC showed normocytic anemia of hgb 10.8. GFR 44. Ferritin 126, iron saturation 22, TIBC 267. Assessment/Plan Diagnosis Plan 1. Dizziness Vitamin B12 2. Decreased vibratory sense 3. Orthostatic hypotension 4. Essential hypertension 5. Type 2 diabetes mellitus with other specified complication, with long-term current use of insulin(HCC) 6. Chronic diarrhea Celiac Disease Serology [facility] 7. Venous insufficiency 8. Early satiety Her light headedness is likely multifactorial and I discussed in detail all of the factors involved including inadequate fluid intake and hypotension, uncontrolled hypertension and sensitivity to the orthostatic changes, BPPV, possible hypoglycemia, early stages of peripheral neuropathy (vibratory sense decreased), chronic mild normocytic anemia (likely anemia of chronic disease and CKD), and Xanax use. Instructions as below. If persists after BP controlled and negative orthostatics, would refer to PT for BPPV maneuvers. Advised against benzodiazepine use. Last B12 check was in 2017, she is on metformin and states she has chronic diarrhea (that is better now with metamucil). Will recheck B12 and perform celiac screening. For her early satiety going on now 1-2 months, discussed possible etiologies including peptic ulcer disease, malignancy and gastroparesis. If persists, she should have an EGD. She also has episodes of post-prandial hunger. I instructed her to check her glucose right away if this happens and record it as, although it is unlikely, post-prandial hypoglycemia is a possibility as well as insulinoma given her other stomach findings. If this persists or post-prandial hypoglycemia confirmed, again she wouldprobably need an EGD and have her seen by her Drier Operator Helper. Her glucose levels at least from review of recent RN coordination note have ranged 70-306. Her weight has increased 3 pounds over the pastfew months. Patient Instructions PLAN: Restart amlodipine. Check your Blood pressure at home several times per day and note any symptoms you have of light headedness. Could start wearing compression stockings during the day. Continue to raise head of bed slightly at night. Drink at least 8 glasses of water per day. Check your blood sugar the next time you feel very hungry after eating and let us know. If you continue to have fullness quickly after eating, let us know. You may need to see a stomach doctor for an endoscopy. Return in about 2 weeks (around 06/19/2020) for Recheck. Note created using voice dictation software. documented in this encounter Plan of Treatment Not on filedocumented as of this encounter Goals Goal Patient Goal Associated Recent Patient-Stated? Author Type Problems Progress Routine Health General No change No Peter Ramesh (02/05/2021 Abbie Murray, 11:19 AM CRYSTAL FINISHER) RN Note: Formatting of this note is differe nt from the original. Routine Health Management Care Team Patient Care Team: Corrine Vazquez MD as PCP - General ([facility] Medicine) Yossi Potts RN as Registered Nurse (Diabetes Education) Abbie Ramesh RN as Camp Program Director Future Scheduled Appointments No future appointments. Health Maintenance Health Maintenance Topic Date Due Urine Protein Screening 05/31/2020 Lipid Panel 09/05/2020 Glaucoma Screening 67+ Yr 12/25/2020 Ophthalmology Exam 12/25/2020 [facility] Annual Wellness 01/12/2021 Hemoglobin A1C 01/24/2021 Diabetic Foot Exam 03/16/2021 Colorectal Cancer Screening: Colonoscop y 05/21/2021 Fall Risk Performed 06/05/2021 Mammogram 12/03/2021 COVID-19 Vaccine Completed [facility] Pneumococcal Vaccine: <64 Complete d [facility] Pneumococcal Vaccine: 65+ Years Co mpleted HPV Vaccines Aged Out Notes: Due: Urine Protein screening Eye exam AWV A1C Lipid panel Diabetes Management General No change (02/05/2021 11:17 AM No Abbie Ramesh RN CRYSTAL FINISHER) Note: Formatting of this note is differe [...] Cardiovascular Management General On track (02/05/2021 No Roschen, Abbie J, RN 11:14 AM CRYSTAL FINISHER) Note: Formatting of this note is differe [...] Notes: documented as of this encounter Results Vitamin B12 (06/15/2020 9:16 AM CDT) athologist Signature Vitamin B-12 [phone] 231 06/15/2020 [facility] pg/mL 2:45 PM CDT CENTER LABORATORY [...] as part of treatment or imaging procedur es, may have circulating anti-animal antibodies prese nt. These antibodies may interfere with the assay reagents to produce unreliable results. Specimen Anatomical Collection Method Collection Time Receive d Time (Source) Location / / Volume Laterality Blood (Blood, 06/15/2020 9:16 06/15/2020 Venous) AM CDT 12:55 PM CDT Antonio Madsen MD LAB BLOOD ORDERABLES Performing Organization Address City/State/ZIP Code Phon e Number [facility] [address] [place] [address] Celiac Disease Serology [facility] (06/15/2020 9:16 AM CDT) Patholo gist Method Time Signature Immunoglobulin A 313 61 - 356 06/18/2020 [facility] (IgA) mg/dL 10:15 PM CDT LABORATORIES Interpretation - 06/18/2020 [facility] 10:15 PM CDT LABORATORIES Comment: Negative serology. Celiac disease unlike ly. However, approximately 10% of patients with casimiro c disease are seronegative. Also, patients who are alr claude adhering to a gluten-free diet may be seronegative. If celiac disease is highly clinically suspected, consider HL A-DQ typing. Test Performed by: [facility] [address] [facility], [place], [place] [address] Paint Spraying Machine Operator Helper: Pradeep Parikh M.D. Ph. D.; CLIA# [id number] Specimen Anatomical Collection Method Collection Time Receive d Time (Source) Location / / Volume Laterality Blood 06/15/2020 9:16 06/15/2020 AM CDT 2:34 PM CDT Antonio Madsen MD LAB BLOOD ORDERABLES Performing Organization Address City/State/ZIP Code Phon e Number [facility] see result attachment for specific address documented in this encounter Visit Diagnoses Diagnosis Dizziness - Primary Dizziness and giddiness Decreased vibratory sense Disturbance of skin sensation Orthostatic hypotension Essential hypertension Unspecified essential hypertension Type 2 diabetes mellitus with other spec ified complication, with long-term current use of insulin (HCC) Chronic diarrhea Diarrhea Venous insufficiency Unspecified venous (peripheral) insuffic iency Early satiety documented in this encounter Care Teams Airdrop Systems Technician Relationship Specialty Start Date End Date Corrine Vazquez MD PCP - General Family Medicine 07/07/19 08/19/[address] [place] [address] documented as of this encounter
--- OUTSIDE RECORDS SUMMARY | 2021-09-05 00:10 | XMS_ITS | Encounter Summary ---
:[address] [facility] Address [address] [place] [address] Care Team Providers Name Role Phone Lincoln Vazquez MD Primary Care Provider Reason for Visit Reason Comments Follow-up lab results Encounter Details Date Type Department Care Team Description 06/19/2020 Office Visit [place] Antonio Madsen, Type 2 diabetes mellitus wit h other specified complication, with long-term current use of insulin (HCC) (Primary Dx); [address] Stage 3 chronic kidney disease, unspecif ied whether stage 3a or 3b CKD [place], [place] [address] [address] [place], [place] [phone] [address] Social History Tobacco Use Types Packs/Day Years [...] Sign Reading Time Taken Comments Blood Pressure 120/60 06/19/2020 1:20 PM CDT Pulse 84 06/19/2020 1:20 PM CDT Temperature 36.5 ??C (97.7 ??F) 06/19/2020 1:20 PM CDT Respiratory Rate 16 06/19/2020 1:20 PM CDT Oxygen Saturation 98% 06/19/2020 1:20 PM CDT Inhaled Oxygen Concentration - - Weight 84.4 kg (186 lb) 06/19/2020 1:20 PM CDT Height - - Body Mass Index 32.83 06/05/2020 10:37 AM CDT documented in this encounter Patient Instructions Patient InstructionsChasterling Madsen MD - 06/19/2020 1:20 PM CDT Schedule follow up with Endocrinology and bring your blood sugar readings/ meter. documented in this encounter Progress Notes Antonio Madsen MD - 06/19/2020 1:20 PM CDT Subjective Patient ID: Marcial Adams is a 75 y.o. female. Chief Complaint Patient presents with ??? Follow-up lab results HPI Here for follow up 2 weeks ago seen on 06/05 for multiple complaints, mainly lightheadedness. See that note for further details. She has been feeling a lot better. Has been drinking more water and stretching her legs. Restarted full tablet of amlodipine for the past 2 weeks. Tolerating that well. She is taking Basaglar 19 U in the morning. She is checking her glucose fasting. This morning was 130. Range 120-130s. If she takes Basaglar 20 U she feels shaky in the morning and her sugar is in the 80's. Sometimes in the evening she feels like her sugar is low when waking up to urinate and her glucose is sometimes in the 70s. Takes glipizide 10 mg in the monring. Takes metformin 1000 mg qd, has low GFR Before bed her glucose 160-225. Has dinner around 6 PM. Checks her bedtime glucose anytime from 930-10 PM. She sometimes has a snack like popcorn before bed. If its 150 she will have a snack. She did not bring her blood glucose values to clinic today this is all based on memory. The following portions of the patient's chart were reviewed in this encounter and updated as appropriate: Allergies Meds ROS ROS done as noted in HPI Objective Visit Vitals BP 120/60 (BP Location: Left arm, Patient Position: Sitting) Pulse 84 Temp 36.5 ??C (97.7 ??F) (Temporal) Resp 16 Wt 84.4 kg (186 lb) SpO2 98% BMI 32.83 kg/m?? Smoking Status Never Smoker BSA 1.94 m?? Physical Exam GEN: well appearing, no acute distress, vital signs reviewed CHEST: CTA william CVS: RRR without murmor NEURO: normal finger-finger without dysmetria Assessment/Plan Diagnosis Plan 1. Type 2 diabetes mellitus with other specified complication, with long-term current use of insulin(HCC) metFORMIN XR (GLUCOPHAGE-XR) 500 MG 24 hr tablet 2. Stage 3 chronic kidney disease, unspecified whether stage 3a or 3b CKD Patient did not bring her blood sugar values. She is very sensitive to changes in her glucose. HerA1c today is basically unchanged from 3 months ago. She is taking metformin 1000 mg daily which is appropriate given her kidney function so I adjusted that Rx signature. I recommended that we consider stopping the glipizide and switching to a mealtime insulin in addition to her basal insulin. Recommended follow up with her product craftsman about this. Terms of her other symptoms that were discussed at last visit 2 weeks ago, her lightheadedness has resolved. She is drinking more water which seems to be helping as well as moving and stretching her legs. Her blood pressure is controlled today 120/60 after restarting her amlodipine 5 mg daily. She has allergies to lisinopril and telmisartan as well as intolerance to statins. In terms of her stomach symptoms including occasional early satiety and occasional postprandial hunger possible hypoglycemia, I voiced concerns over possible stomach cancer or gastroparesis and recommended referral to GI for possible EGD. Patient declines. Patient Instructions Schedule follow up with Endocrinology and bring your blood sugar readings/ meter. Return in about 3 months (around 09/19/2020) for Lab draw. Note created using voice dictation software. documented in this encounter Plan of Treatment Not on filedocumented as of this encounter Goals Goal Patient Goal Associated Recent Patient-Stated? Author Type Problems Progress Routine Health General No change No Domitila, Management (02/05/2021 Abbie Murray, 11:19 AM CARDER BLANKETS) RN Note: Formatting of this note is differe nt from the original. Routine Health Management Care Team Patient Care Team: Corrine Vazquez MD as PCP - General ([facility] Medicine) Yossi Potts RN as Registered Nurse (Diabetes Education) Abbie Ramesh, RN as Cooler Man Future Scheduled Appointments No future appointments. Health [...] change (02/05/2021 11:17 AM Abbie Monzon, RN CARDER BLANKETS) Note: Formatting of this note is differe [...] (02/05/2021 No Abbie Ramesh RN 11:14 AM CARDER BLANKETS) Note: Formatting of this note is differe [...] current use of insulin (HCC) - Primary Stage 3 chronic kidney disease, unspecif ied whether stage 3a or 3b CKD (HCC) documented in this encounter Care Teams Beauty Culturist Apprentice Relationship Specialty Start Date End Date Corrine Vazquez MD PCP - General Family Medicine 07/07/19 08/19/[address] [place] [address] documented as of this encounter
--- OUTSIDE RECORDS SUMMARY | 2021-09-05 00:10 | XMS_ITS | Encounter Summary ---
:[address] [facility] Address [address] [place] [address] Care Team Providers Name Role Phone Lincoln Vazquez MD Primary Care Provider Reason for Visit Reason Onset Date Comments yeast inf Rx 06/22/2020 Encounter Details Date Type Department Care Team Description 06/22/2020 Telephone [place] Antonio Madsen MD yeast inf Rx [address] [place], [place] [address] [place], [place] [phone] (Wo rk) Social History Tobacco Use Types [...] / COVID-19? documented as of this encounter Miscellaneous Notes Telephone Encounter - Margareth Sanchez RN - 06/22/2020 9:22 AM CDT Please advise on Rx request. Telephone Encounter - Luciana Albarado - 06/22/2020 9:15 AM CDT Pt called asking for a prescription for a yeast infection. Pt uses [facility]. Please call Pt [phone] to advise. documented in this encounter Plan of Treatment Not on filedocumented as of this encounter Goals Goal Patient Goal Associated Recent Patient-Stated? Author Type Problems Progress Routine Health General No change Peter Monzon (02/05/2021 Abbie Murray, 11:19 AM DIRECTIONAL DRILL OPERATOR) RN Note: Formatting of this note is differe nt from the original. Routine Health Management Care Team Patient Care Team: Corrine Vazquez MD as PCP - [facility]) Yossi Potts, RN as Registered Nurse (Diabetes Education) Abbie Ramesh RN as Ecommerce Marketing Specialist Future Scheduled Appointments No future appointments. Health Maintenance Health Maintenance Topic Date Due Urine Protein Screening 05/31/2020 Lipid Panel 09/05/2020 Glaucoma Screening 67+ Yr 12/25/2020 Ophthalmology Exam 12/25/2020 [facility] Annual Wellness 01/12/2021 Hemoglobin [...] change (02/05/2021 11:17 AM Abbie Monzon, RN DIRECTIONAL DRILL OPERATOR) Note: Formatting of this note is differe nt from the original. Diabetes Management Type 2 diabetes mellitus with other spec ified complication (HCC) Managed by (PCP or Endocrinology) Dr. Vazquez (PCP ) Home Glucose tracking 1-3 times per day Diabetic medications insulin glargine (B OSIRISGLMARIANELA KWIKPEN) 100 UNIT/ML injection 22 units in [...] (02/05/2021 No Abbie Ramesh, RN 11:14 AM DIRECTIONAL DRILL OPERATOR) Note: Formatting of this note is differe nt from the original. Cardiovascular Management Essential hypertension Chronic coronary artery disease Managed by (PCP; Cardiology; [facility]) Dr. Ronak lozoya MD (PCP)/Dr. [...] this encounter Visit Diagnoses Diagnosis Yeast vaginitis - Primary documented in this encounter Care Teams School Commissioner Relationship Specialty Start Date End Date Corrine Vazquez MD PCP - General Family Medicine 07/07/19 08/19/[address] [place] [address] documented as of this encounter
--- OUTSIDE RECORDS SUMMARY | 2021-09-05 00:10 | XMS_ITS | Encounter Summary ---
:1945 Author Organization [facility] Address [address] [place] [address] Care Team Providers Name Role Phone Lincoln Vazquez MD Primary Care Provider Encounter Details Date Type Department Care Team Description 03/18/2020 Orders Only [place] Corrine Vazquez Type [address] [place] mellitus [place] [address] specified complication, [place] with long-term current [place] use of insu [place] ([facility]) [id number] (Primary Dx) Social History Tobacco Use Types [...] Ramesh, Peter (02/05/2021 Abbie Murray, 11:19 AM CLINIC SUPERVISOR) RN Note: Formatting of this note is differe nt from the original. Routine Health Management Care Team Patient Care Team: Corrine Vazquez MD as PCP - General ([facility] Medicine) Yossi Potts RN as Registered Nurse (Diabetes Education) Abbie Ramesh RN as Seam Finisher Future Scheduled Appointments No future appointments. Health Maintenance Health Maintenance Topic Date Due Urine Protein Screening 05/31/2020 Lipid Panel 09/05/2020 Glaucoma Screening 67+ Yr 12/25/2020 Ophthalmology Exam 12/25/2020 [facility] Annual Wellness 01/12/2021 Hemoglobin A1C 01/24/2021 Diabetic Foot Exam 03/16/2021 Colorectal Cancer Screening: Colonoscop y 05/21/2021 Fall Risk Performed 06/05/2021 Mammogram 12/03/2021 COVID-19 Vaccine Completed [facility] Pneumococcal Vaccine: <64 [facility] d [facility] Pneumococcal Vaccine: 65+ Years Co mpleted HPV Vaccines Aged Out Notes: Due: Urine Protein screening Eye exam AWV A1C Lipid panel Diabetes Management General No change (02/05/2021 11:17 AM No Abbie Ramesh, RN CLINIC SUPERVISOR) Note: Formatting of this note is [...] Primary documented in this encounter Care Teams Meteorology Professor Relationship Specialty Start Date End Date Corrine Vazquez MD PCP - General Family Medicine 07/07/19 08/19/[address] [place] [address] documented as of this encounter
--- OUTSIDE RECORDS SUMMARY | 2021-09-05 00:10 | XMS_ITS | Encounter Summary ---
:1945 Author Organization [facility] Address [address] [place] [address] Care Team Providers Name Role Phone Lincoln Vazquez MD Primary Care Provider Reason for Visit Consultation (Routine) - Closed Specialty Diagnoses / Procedures Referred By Contact Refer red To Contact Family Medicine Diagnoses Enrolled in chronic care management Essential hypertension Type 2 diabetes mellitus with other specified complication, with long-term current use of insulin (HCC) Mixed hyperlipidemia Corrine Vazquez MD Care Coordination [address] [facility] [address] [place] [address] [place], [place] [phone] Referral ID Status Reason Start Date Expiration Date Visits V isits Requested Authorized [id number] Closed Specialty 02/21/2020 03/18/2021 99 99 Services Required Encounter Details Date Type Department Care Team Description 06/22/2020 Patient Outreach SE Care Coordination Abbie Ramesh Counseling and coordination of care (Primary Dx); [address] [place] [address] ERA Murray Type 2 diabetes mellitus with other spec ified complication, with long-term current use of insulin (HCC); [place] [address] [address] [facility] Essential hypertension [phone] [place] [address] Social History Tobacco Use Types [...] or relatives? How often do you attend hinduism or More than 4 times per year 12/23/2018 jain services? Do you belong to any clubs or No 12/23/2018 organizations such as hinduism groups, unions, fraBooster or athletic groups, or school groups? How [...] encounter Progress Notes Abbie Ramesh RN - 06/22/2020 8:40 AM CDT Continued Care Plan - Care Coordination Date: 06/26/2020 12:05 PM Completed CCM monthly chart review ?? Called for update. Left voicemail requesting a return call ?? Reviewed medication list ?? Established/Updated/Reviewed Management goals: (see below for details) ?? Cardiovascular Management ?? Diabetes Management ?? Routine Health Management ?? Schedule ENDO appt Follow-up plan: ?? Monthly or sooner if needed Items for Provider to address: ??? None Goals 06/22/20 05/24/20 03/23/20 02/21/20 12/30/19 General ??? Cardiovascular Management On track No change Cardiovascular Management Essential hypertension Chronic coronary artery disease Managed by (PCP; Cardiology; [facility]) Dr. Taylor MD (PCP)/Dr. [...] tablet daily Notes: ??? Diabetes Management Improving Improving On track On track On track Diabetes Management Type [...] ENDO ??? Routine Health Management On track Improving On track On track On track Routine Health Management Care Team Patient Care Team: Corrine Vazquez MD as PCP - General (Family Medicine) Yossi Potts, RN as Registered Nurse (Diabetes Education) Abbie Ramesh, RN as Fur Plucker Future Scheduled Appointments No future appointments. Health [...] No change Hailee Ramesh, Management (02/05/2021 Abbie Murray, 11:19 AM FIELD MANAGER) RN Note: Formatting of this note is differe nt from the original. Routine Health Management Care Team Patient Care Team: Corrine Vazquez MD as PCP - General ([facility] Medicine) Yossi Potts RN as Registered Nurse (Diabetes Education) Abbie Ramesh RN as Fur Plucker Future Scheduled Appointments No future appointments. Health Maintenance Health Maintenance Topic Date Due Urine Protein Screening 05/31/2020 Lipid Panel 09/05/2020 Glaucoma Screening 67+ Yr 12/25/2020 Ophthalmology Exam 12/25/2020 [facility] Annual Wellness 01/12/2021 Hemoglobin A1C 01/24/2021 Diabetic Foot Exam 03/16/2021 Colorectal Cancer Screening: Colonoscop y 05/21/2021 Fall Risk Performed 06/05/2021 Mammogram 12/03/2021 COVID-19 Vaccine Completed [facility] Pneumococcal Vaccine: <64 Complete d [facility] Pneumococcal Vaccine: 65+ Years Co mpleted HPV Vaccines Aged Out Notes: Due: Urine Protein screening Eye exam AWV A1C Lipid panel Diabetes Management General No change (02/05/2021 11:17 AM Abbie Monzon, RN FIELD MANAGER) Note: Formatting of this note is [...] Cardiovascular Management General On track (02/05/2021 Abbie Moznon RN 11:14 AM FIELD MANAGER) Note: Formatting of this note is differe nt from the original. Cardiovascular Management Essential hypertension Chronic coronary artery disease Managed by (PCP; Cardiology; [facility]) Dr. Ronak lzooya MD (PCP)/Dr. Tena MD Last: 11/09/20 Due: [...] hypertension documented in this encounter Care Teams World Geography Teacher Relationship Specialty Start Date End Date Corrine Vazquez MD PCP - General Family Medicine 07/07/19 08/19/21 [address] [place] [address] documented as of this encounter
--- OUTSIDE RECORDS SUMMARY | 2021-09-05 00:11 | XMS_ITS | Encounter Summary ---
:1945 Author Organization [facility] Address [address] [place] [address] Care Team Providers Name Role Phone Lincoln Vazquez MD Primary Care Provider Reason for Visit Reason Comments Pain in Side Encounter Details Date Type Department Care Team Description 01/13/2020 Office Visit Chuckie Pierre Corrine Vazquez Mixed hyperlipidemia (Primar y Dx); [address] MD Lincoln Left-sided chest wall pain; [place], [place] [address] Type 2 diab etes mellitus with other specified complication, with long-term current use of insulin ([facility]) [address] [place] [phone] [place] [address] Social History Tobacco Use Types Packs/Day Years [...] or relatives? How often do you attend religious or More than 4 times per year 12/23/2018 catholic services? Do you belong to any clubs or No 12/23/2018 organizations such as religious groups, unions, fraternal or athletic groups, or [...] Sign Reading Time Taken Comments Blood Pressure 132/80 01/13/2020 2:24 PM ROOM ATTENDANTS Pulse 86 01/13/2020 2:24 PM ROOM ATTENDANTS Temperature 36.3 ??C (97.4 ??F) 01/13/2020 2:24 PM ROOM ATTENDANTS Respiratory Rate 14 01/13/2020 2:24 PM ROOM ATTENDANTS Oxygen Saturation 96% 01/13/2020 2:24 PM ROOM ATTENDANTS Inhaled Oxygen Concentration - - Weight 81.6 kg (180 lb) 01/13/2020 2:24 PM ROOM ATTENDANTS Height 160.3 cm (5' 3.11) 01/13/2020 2:24 PM ROOM ATTENDANTS Body Mass Index 31.77 01/13/2020 2:24 PM ROOM ATTENDANTS documented in this encounter Progress Notes Corrine Vazquez MD - 01/13/2020 2:00 PM CST Estab Patient Visit Subjective Patient ID: Marcial Adams is a 74 y.o. female. HPI patient is here today for couple different reasons. First we did discuss her diabetes and she states she stopped taking the Crestor because of bad dreams that she was having with this medication the dreams were real significant enough that she would just sometimes yell out say a few things toss and turn wake up and not sleep as well. Since she stoppedtaking it 3 weeks ago those side effects have disappeared and she feels better and sleeps better . She had been previously on Lipitor with some side effects I suspect muscle aches so we will not return to that. We have however recommended to her to try Pravachol 10 mg tablet very low dose for just 1 month if she does not have any side effects or problems to it she will let me know and then we will try to go up to 20 mg and find a dose that fits whether or not she can tolerate it. Her next issue is her A1c. Her A1c's have unfortunately consistently been in the 8 level most recently 8.4. She is a bit sensitive to medications and she is a little sensitive to a changes in medications if her blood sugar drops into the 90s she gets a little sense that her sugars are too low as such she does not want to push anything too great. Her current medications for diabetes include Glipizide 10 mg just once a day Basalgar 17 units daily long-acting we had her up to about 20-21 but she is feels that she does not tolerate the higher doses. Metformin 500 mg extended release twice a day She is relatively sensitive to medications but she understands I would like her A1c is to be a little better. As such she has agreed to increase her Metformin extended release to 500 mg 2 pills in themorning 1 pill in the afternoon. She will try this for 3 months if she does not have any problems with it we will then increase her to 500 mg 2 pills twice a day. Next she had a little question or concern about a bruise on her lower abdomen as well as a little area of sensitivity left anterior chest wall area that she says her chiropractor is unable to fix that much. She gets chiropractic adjustments a couple times a month for what she describes as a rib goingout on her right side. The pain that she is having on the lateral portion of the left lower rib cage area is not there all the time does not keep her from sleeping does not bother her when she is driving does not seem to bother her when she takes deep breaths coughs or turns or does things however there can be a periodic ache or discomfort at times in particular to palpation or touch. This has been going on for a number of weeks there is no particular injury that occurred nothing that she can think She has had no fevers no chills no cough no colds she has had no rashes, in this area that would possibly indicate shinglesdoes not affect her appetite does not affect her GI or symptoms. Review of Systems Objective Physical Exam she is alert she appears comfortable her vital signs show the following Blood pressure 132/80 pulse 86 regular rate and rhythm temp 97.4 her weight is 180 pounds her BMI is31.8 O2 sats 96% room air Her conjunctiva is clear pupils equal Tongue is moist Neck no thyromegaly no adenopathy no obvious neck vein distention Lungs are clear without wheeze rales or rhonchi Cardiac is regular rate and rhythm without heart murmur She can take a deep breath cough turn twist without any exacerbation of pain Long the left lower rib cage area right along the ribs or chest directly below she has a couple areas are little bit sensitive to palpation when we push on him causes her to have some discomfort or pain She also has on the left lower abdominal area a bruise and a little bit of a [place] lump is most likely secondary to where she has inject herself with insulin Assessment/Plan Diagnoses and all orders for this visit: Mixed hyperlipidemia - pravastatin (PRAVACHOL) 10 MG tablet; Take ONE a day at night for cholesterol Left-sided chest wall pain Type 2 diabetes mellitus with other specified complication, with long-term current use of insulin (HCC) - metFORMIN XR (GLUCOPHAGE-XR) 500 MG 24 hr tablet; Take TWO pills in the AM and ONE in the PM (before meals) for diabetes Assessment again he has Hyperlipidemia for which we will initiate Pravachol therapy and stop Crestor Diabetes type 2 under less than adequate control and plan is to increase her metformin slowly over time Left lower chest wall pain and discomfort undetermined etiology possibly could secondary to inflammatory state along this area for unknown reason but for now we will just observe and she will keep in touch with us if things tend to get worse or if she gets a rash in this area that would suggest possibly shingles ATTENDANTS documented in this encounter Plan of Treatment Not on filedocumented as of this encounter Goals Goal Patient Goal Associated Recent Patient-Stated? Author Type Problems Progress Routine Health General No change No Peter Ramesh (02/05/2021 Abbie Murray, 11:19 AM ROOM ATTENDANTS) RN Note: Formatting of this note is differe nt from the original. Routine Health Management Care Team Patient Care Team: Corrine Vazquez MD as [facility] - [facility] Yossi Potts, RN as Registered Nurse (Diabetes Education) Abbie Ramesh RN as Oven Stripper Future Scheduled Appointments No future appointments. Health Maintenance Health Maintenance Topic Date Due Urine Protein Screening 05/31/2020 Lipid Panel 09/05/2020 Glaucoma Screening 67+ Yr 12/25/2020 Ophthalmology Exam 12/25/2020 [facility] [place]ness [...] (02/05/2021 11:17 AM No Abbie Ramesh, RN ROOM ATTENDANTS) Note: Formatting of this note is differe [...] as of this encounter Visit Diagnoses Diagnosis Mixed hyperlipidemia - Primary Left-sided chest wall pain Painful respiration Type 2 diabetes mellitus with other spec ified complication, with long-term current use of insulin (HCC) documented in this encounter Care Teams Tobacco Stemmer Machine Relationship Specialty Start Date End Date Corrine Vazquez MD PCP - General Family Medicine 07/07/19 08/19/[address] [place] [address] documented as of this encounter
--- OUTSIDE RECORDS SUMMARY | 2021-09-05 00:11 | XMS_ITS | Encounter Summary ---
:[address] [facility] Address [address] [place] [address] Care Team Providers Name Role Phone Lincoln Vazquez MD Primary Care Provider Reason for Visit Reason Onset Date Comments orders 01/20/2020 Encounter Details Date Type Department Care Team Description 01/20/2020 Telephone [place] Corrine Vazquez MD orders [address] [place], [place] [address] [place], [place] [phone] (Wo rk) Social History Tobacco Use Types [...] or relatives? How often do you attend hindu or More than 4 times per year 12/23/2018 methodist services? Do you belong to any clubs or No 12/23/2018 organizations such as hindu groups, unions, fraternal or athletic groups, or [...] Telephone Encounter - Lana Knight LPN - 01/20/2020 9:12 AM CST The patient was informed that we do not have any outside orders here in clinic. She is going to callher rheumatology group and have them fax the orders to us. ROAST Telephone Encounter - Phoebe Donohue - 01/20/2020 8:58 AM CST Patient is supposed to have lab work per her office specialist. She is wondering if outside order has been received. Please call her at [phone]. ROAST documented in this encounter Plan of Treatment Not on filedocumented as of this encounter Goals Goal Patient Goal Associated Recent Patient-Stated? Author Type Problems Progress Routine Health General No change No Domitila, Peter (02/05/2021 Abbie Murray 11:19 AM COOK ROAST) RN Note: Formatting of this note is differe nt from the original. Routine Health Management Care Team Patient Care Team: Corrine Vazquez MD as PCP - [facility] Yossi Potts RN as Registered Nurse (Diabetes Education) Abbie Ramesh RN as Personal Lines Advisor Future Scheduled Appointments No future appointments. Health Maintenance Health Maintenance Topic Date Due Urine Protein Screening 05/31/2020 Lipid Panel 09/05/2020 Glaucoma Screening 67+ Yr 12/25/2020 Ophthalmology Exam 12/25/2020 [facility] Annual Wellness 01/12/2021 Hemoglobin A1C 01/24/2021 Diabetic [...] change (02/05/2021 11:17 AM Abbie Monzon, RN COOK ROAST) Note: Formatting of this note is differe [...] on filedocumented in this encounter Care Teams Mid Level Game Designer Relationship Specialty Start Date End Date Corrine Vazquez MD PCP - General Family Medicine 07/07/19 08/19/[address] [place] [address] documented as of this encounter
--- OUTSIDE RECORDS SUMMARY | 2021-09-05 00:11 | XMS_ITS | Encounter Summary ---
:1945 Author Organization [facility] Address [address] [place] [address] Care Team Providers Name Role Phone Lincoln Vazquez MD Primary Care Provider Reason for Visit Consultation (Routine) - Closed Specialty Diagnoses / Procedures Referred By Contact Refer red To Contact Diagnoses Medicare annual wellness visit, initial Corrine Vazquez MD Care Coordination [address] [place], [place] [phone] Referral ID Status Reason Start Date Expiration Date Visits V isits Requested Authorized [id number] Closed Specialty 12/23/2018 99 99 Services Required Encounter Details Date Type Department Care Team Description 02/01/2020 Patient Outreach SE Care Coordination Abbie Ramesh Counseling and [address] [place] [address] Terri [place] [address] [address] (Primary Dx) [phone] [place] [phone] Social History Tobacco Use Types Packs/Day Years [...] More than 4 times per year 12/23/2018 worship services? Do you belong to any clubs [...] encounter Progress Notes Abbie Ramesh RN - 02/01/2020 11:20 AM CST Care Plan - Care Coordination Contact Date: 02/01/2020 11:49 AM Called for monthly follow up and progress; Left message to call back.. This is first attempt to call this month. OGEN TREATER Abbie Ramesh RN - 02/01/2020 11:20 AM CST Care Plan - Care Coordination Contact Date: 02/16/2020 2:32 PM Called for monthly follow up and progress; Left message to call back.. This is second attempt to call this month. Also address telephone encounter from yesterday 02/14. OGEN TREATER documented in this encounter Plan of Treatment Not on filedocumented as of this encounter Goals Goal Patient Goal Associated Recent Patient-Stated? Author Type Problems Progress Routine Health General No change Peter Monzon (02/05/2021 Abbie Murray, 11:19 AM HYDROGEN TREATER) RN Note: Formatting of this note is differe nt from the original. Routine Health Management Care Team Patient Care Team: Corrine Vazquez MD as PCP - [facility] Yossi Potts, RN as Registered Nurse (Diabetes Education) Abbie Ramesh RN as Slp Teacher Future Scheduled Appointments No future appointments. Health Maintenance Health Maintenance Topic Date Due Urine Protein Screening 05/31/2020 Lipid Panel 09/05/2020 Glaucoma Screening 67+ Yr 12/25/2020 Ophthalmology Exam 12/25/2020 [facility] Annual Wellness 01/12/2021 Hemoglobin A1C 01/24/2021 Diabetic [...] (02/05/2021 11:17 AM No Abbie Ramesh, RN HYDROGEN TREATER) Note: Formatting of this note is differe [...] imary documented in this encounter Care Teams Market Investigator Relationship Specialty Start Date End Date Corrine Vazquez MD PCP - General Family Medicine 07/07/19 08/19/[address] [place] [address] documented as of this encounter
--- OUTSIDE RECORDS SUMMARY | 2021-09-05 00:11 | XMS_ITS | Encounter Summary ---
:1945 Author Organization [facility] Address [address] [place] [address] Care Team Providers Name Role Phone Lincoln Vazquez MD Primary Care Provider Reason for Visit Reason Onset Date Comments Appointment 03/08/2020 Encounter Details Date Type Department Care Team Description 03/08/2020 Telephone [place] Corrine Vazquez MD [facility]ment [address] [facility] [address] [place], [place] [address] [place], [place] [phone] (Wo rk) Social History Tobacco Use Types [...] or relatives? How often do you attend tenriism or More than 4 times per year 12/23/2018 scientology services? Do you belong to any clubs or No 12/23/2018 organizations such as tenriism groups, unions, fraternal or athletic groups, or [...] Telephone Encounter - Margareth Sanchez RN - 04/02/2020 11:16 AM CST Information printed and mailed to patient. S REPRESENTATIVE [employer]URNITURE Telephone Encounter - Margareth Sanchez RN - 04/02/2020 10:32 AM CST Reviewed osteopenia in up to date, information not beneficial for this situation. Dr. Madsen, do you know how to look up education material within [employer] for osteopenia that we can print for this patient? S REPRESENTATIVE CHURCH [employer]URNITURE Telephone Encounter - Corrine Vazquez MD - 04/02/2020 10:10 AM CST Can you check with [facility] orthopedic department to see if they have any general pamphlets or information that can be sent to [facility] in regard to osteopi??a and osteoporosis. Or you could search up-to-date and come up with some information as well. Thanks S REPRESENTATIVE CHURCH FURNITURE Telephone Encounter - Margareth Sanchez RN - 04/02/2020 8:06 AM CST Patient informed, she questions if you can send her some information on Osteopenia so she can learn more about it? S REPRESENTATIVE [employer]URCH FURNITURE Telephone Encounter - Margareth Sanchez RN - 03/08/2020 1:38 PM CST FYI S REPRESENTATIVE CHURCH FURNITURE Telephone Encounter - Luciana Albarado - 03/08/2020 12:14 PM CST Appt scheduled for 03/16/20 as requested. S REPRESENTATIVE CHURCH FURNITURE Telephone Encounter - Margareth Sanchez RN - 03/08/2020 11:47 AM CST Patient is due for a mammogram and a diabetic recheck with foot exam and nonfasting labs. Please call patient to schedule. S REPRESENTATIVE CHURCH FURNITURE documented in this encounter Plan of Treatment Not on filedocumented as of this encounter Goals Goal Patient Goal Associated Recent Patient-Stated? Author Type Problems Progress Routine Health General No change Peter Monzon (02/05/2021 Abbie Murray, 11:19 AM SALES REPRESENTATIVE CHURCH FURNITURE) RN Note: Formatting of this note is differe nt from the original. Routine Health Management Care Team Patient Care Team: Corrine Vazquez MD as PCP - General ([facility] Medicine) Yossi Potts, RN as Registered Nurse (Diabetes Education) Abbie Ramesh, RN as Prn Physical Therapist Future Scheduled Appointments No future appointments. Health [...] change (02/05/2021 11:17 AM Abbie Monzon, RN SALES REPRESENTATIVE CHURCH FURNITURE) Note: Formatting of this note is differe [...] on filedocumented in this encounter Care Teams Development Specialist Relationship Specialty Start Date End Date Corrine Vazquez MD PCP - General Family Medicine 07/07/19 08/19/[address] [place] [address] documented as of this encounter
--- OUTSIDE RECORDS SUMMARY | 2021-09-05 00:11 | XMS_ITS | Encounter Summary ---
:1945 Author Organization [facility] Address [address] [place] [address] Care Team Providers Name Role Phone Lincoln Vazquez MD Primary Care Provider Reason for Visit Consultation (Routine) - Closed Specialty Diagnoses / Procedures Referred By Contact Refer red To Contact Diagnoses Medicare annual wellness visit, initial Corrine Vazquez MD Care Coordination 17[address] [facility] [address] [phone] Referral ID Status Reason Start Date Expiration Date Visits V isits Requested Authorized [id number] Closed Specialty 12/23/2018 99 99 Services Required Encounter Details Date Type Department Care Team Description 11/08/2019 Patient Outreach SE Care Coordination Abbie Ramesh, [address] [place] [address] [place] [address] [place] [phone] Social History Tobacco Use Types Packs/Day Years [...] More than 4 times per year 12/23/2018 rastafari services? Do you belong to any clubs or No 12/23/2018 organizations such as religion groups, unions, fraternal or athletic groups, or [...] encounter Progress Notes Abbie Ramesh RN - 11/08/2019 8:20 AM CDT Care Plan - Care Coordination Contact Date: 11/09/2019 1:33 PM Called for monthly follow up and progress; Left message to call back.. This is first attempt to call this month. documented in this encounter Plan of Treatment Not on filedocumented as of this encounter Goals Goal Patient Goal Associated Recent Patient-Stated? Author Type Problems Progress Routine Health General No change Hailee Ramesh Management (02/05/2021 Abbie Murray 11:19 AM ARABIC PROFESSOR) RN Note: Formatting of this note is differe nt from the original. Routine Health Management Care Team Patient Care Team: Corrine Vazquez MD as PCP - [facility]) Yossi Potts, RN as Registered Nurse (Diabetes Education) Abbie Ramesh RN as Papeterie Table Assembler Future Scheduled Appointments No future appointments. Health [...] change (02/05/2021 11:17 AM Abbie Monzon, RN ARABIC PROFESSOR) Note: Formatting of this note is differe [...] on filedocumented in this encounter Care Teams Contact Lens Edge Buffer Relationship Specialty Start Date End Date Corrine Vazquez MD PCP - General Family Medicine 07/07/19 08/19/[address] [place] [address] documented as of this encounter
--- OUTSIDE RECORDS SUMMARY | 2021-09-05 00:11 | XMS_ITS | Encounter Summary ---
:1945 Author Organization [facility] Address [address] [place] [address] Care Team Providers Name Role Phone Lincoln Vazquez MD Primary Care Provider Reason for Visit Consultation (Routine) - Closed Specialty Diagnoses / Procedures Referred By Contact Refer red To Contact Diagnoses Medicare annual wellness visit, initial Corrine Vazquez MD Care Coordination [address] [place], [place] [phone] Referral ID Status Reason Start Date Expiration Date Visits V isits Requested Authorized [id number] Closed Specialty 12/23/2018 99 99 Services Required Encounter Details Date Type Department Care Team Description 11/25/2019 Patient Outreach SE Care Coordination Abbie Ramesh Counseling and coordination of care (Primary Dx); [address] [facility] Terri RN Type 2 diabetes mellitus with other spec ified complication, with long-term current use of insulin (HCC); [place] [address] [address] Weak urinary stream [phone] [place] [address] Social History Tobacco Use Types [...] or relatives? How often do you attend sabianist or More than 4 times per year 12/23/2018 hindu services? Do you belong to any clubs or No 12/23/2018 organizations such as sabianist groups, unions, [employer] or athletic groups, or school groups? How [...] encounter Progress Notes Abbie Ramesh RN - 11/25/2019 3:40 PM CDT Continued Care Plan - Care Coordination Discussion Date: 11/25/2019 4:27 PM Completed CCM monthly follow up with Marcial She continues to work towards previously set goals. Today's discussion: ??? Reviewed/Updated following Care Management goals: o Diabetes Management: blood sugars improving. Experiencing less lows. Morning readings 110, 124, 127. Needs refill on lancets. Pended under orders only o Routine Health Management ??? Follow-up plan: ?? Monthly calls or sooner if needed ?? Reinforced 08/09 nurse line Items for Provider to address: ??? Refill on lancets Goals Today 11/10/19 08/26/19 07/19/19 07/06/19 General ??? Diabetes Management Improving Improving Diabetes Management Managed by (PCP or Endocrinology) Dr. Stewart Last: 06/13/19 Next appt: 09/12/19 Lifestyle management (diet and exercise) Home Glucose tracking 1-3 times per day: blood sugar readings 80-120s in AM Diabetic medications insulin glargine (BASAGLAR KWIKPEN) 100 UNIT/ML injection 17 units at bedtime glipiZIDE (GLUCOTROL XL) 10 MG 24 hr tablet 1 tablet 2x/day metFORMIN XR (GLUCOPHATE-XR) 500 MG 24 hr tablet 1 tablet BID Statin therapy Intolerance: taking rosuvastatin (CRESTOR) 5 MG tablet Aspirin therapy (if applicable: diagnosis IVD) Diabetic labs: Hemoglobin A1C (goal: less than 8.0) LDL (goal: less than 100) Creatinine Urine-Micro albumin / Protein Lab Results Component Value Date HGBA1C 8.3 (H) 09/06/2019 Lab Results Component Value Date LDLCALC 99 09/06/2019 CREATININE 1.4 (H) 09/06/2019 Recent Blood Pressure (goal: less than 140/90) BP Readings from Last 1 Encounters: 10/28/19 120/56 Diabetic Eye Exam (yearly) Last: 12/17/18 Diabetic Foot Exam (yearly) Last: 07/15/2018 Tobacco use Social History Tobacco Use Smoking status: Never Smoker Smokeless tobacco: Never Used Notes / Items to work on: -Updated foot exam- pt will discuss with PCP at next visit. At this time pt declines Podiatry and states she is able to cut her own nails. ??? Pt states she will have A1C drawn end of November. ??? Routine Health Management On track Improving1 On track1 On track1 On track1 Routine Health Management Care Team Patient Care Team: Corrine Vazquez MD as PCP - General (Family Medicine) JOSE DE JESUS Austin as Diabetes Management (Endocrinology) Yossi Potts RN as Registered Nurse (Diabetes Education) Abbie Ramesh RN as Fly Tier Future Scheduled Appointments No future appointments. Health Maintenance Health Maintenance Topic Date Due ??? Diabetic Foot Exam 07/16/2019 ??? Mammogram 11/26/2019 ??? Hemoglobin A1C 12/07/2019 ??? Glaucoma Screening 67+ Yr 12/18/2019 ??? Ophthalmology Exam 12/18/2019 ??? Fall Risk Performed 12/24/2019 ??? [facility] 12/24/2019 ??? Urine Protein Screening 05/31/2020 ??? Lipid Panel 09/05/2020 ??? Colorectal Cancer Screening: Colonoscopy 05/21/2021 ??? [facility] Pneumococcal Vaccine: 65+ Years Completed ? ? [facility] Pneumococcal Vaccine: <64 Aged Out ??? HPV Vaccines Aged Out Notes: 1 Progress evaluated against: Health Maintenance Corrine Vazquez MD - 11/25/2019 3:40 PM CDT I didn't find the pended orders. Can you locate and resend to my worklist Abbie Ramesh RN - 11/25/2019 3:40 PM CDT Care Plan - Care Coordination Contact Date: 11/29/2019 10:31 AM Faxed Certificate of Medical Necessity form to Alexandra Prater. Abbie Ramesh RN - 11/25/2019 3:40 PM CDT Care Plan - Care Coordination Contact Date: 12/15/2019 8:48 AM Left message with Marcial to call back to see if she has gotten her shoes yet. Abbie Ramesh RN - 11/25/2019 3:40 PM CDT Care Plan - Care Coordination Contact Date: 12/15/2019 11:58 AM Marcial calls back. She had a visit with the channel marketing specialist this morning. They discussed possibility ofstarting a new medication to protect her heart. She was given some information but would like to discuss with PCP. She plans to make an appointment to discuss prior to starting. Unable to see records from [facility] at the moment. documented in this encounter Plan of Treatment Not on filedocumented as of this encounter Goals Goal Patient Goal Associated Recent Patient-Stated? Author Type Problems Progress Routine Health General No change Peter Monzon (02/05/2021 Abbie Murray, 11:19 AM CRYPTOGRAPHIC MACHINE OPERATOR) RN Note: Formatting of this note is differe nt from the original. Routine Health Management Care Team Patient Care Team: Corrine Vazquez MD as PCP - General ([facility] amily Medicine) Yossi Potts, RN as Registered Nurse (Diabetes Education) Abbie Ramesh RN as Fly Tier Future Scheduled Appointments No future appointments. Health Maintenance Health Maintenance Topic Date Due Urine Protein Screening 05/31/2020 Lipid Panel 09/05/2020 Glaucoma Screening 67+ Yr 12/25/2020 Ophthalmology Exam 12/25/2020 [facility] 01/12/2021 Hemoglobin A1C 01/24/2021 Diabetic [...] (02/05/2021 11:17 AM No Abbie Ramesh, RN CRYPTOGRAPHIC MACHINE OPERATOR) Note: Formatting of this note is [...] with long-term current use of insulin (HCC) Weak urinary stream Slowing of urinary stream documented in this encounter Care Teams Apns Relationship Specialty Start Date End Date Corrine Vazquez MD PCP - General Family Medicine 07/07/19 08/19/[address] [place] [address] documented as of this encounter
--- OUTSIDE RECORDS SUMMARY | 2021-09-05 00:11 | XMS_ITS | Encounter Summary ---
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 How often do you attend gnosticism or More than 4 times per year 12/23/2018 sabianist services? Do you belong to any clubs or No 12/23/2018 organizations such as gnosticism groups, unions, fraternal or athletic groups, or [...] Peter Monzon (02/05/2021 Abbie Murray, 11:19 AM OUTBOARD MOTOR INSPECTOR) RN Note: Formatting of this note is differe nt from the original. Routine Health Management Care Team Patient Care Team: Corrine Vazquez MD as PCP - General ([facility] Medicine) Yossi Potts, RN as Registered Nurse (Diabetes Education) Abbie Ramesh, RN as Paunch Trimmer Future Scheduled Appointments No future appointments. [...] (02/05/2021 11:17 AM No Abbie Ramesh, RN OUTBOARD MOTOR INSPECTOR) Note: Formatting of this note is [...] Priority Date/Time Associated Diagnosis Comme nts GLOMERULAR FILTRATION Routine 01/25/2020 10:35 Seropositive Re sults for this RATE AM OUTBOARD MOTOR INSPECTOR rheumatoid arthritis procedu re are in of multiple sites the result s (HCC) section. Encounter for long-term (current) use of medicatio ns Vitamin D deficiency, unspecified VITAMIN D, TOTAL Routine 01/25/2020 10:35 Seropositive Results for this AM OUTBOARD MOTOR INSPECTOR rheumatoid arthritis procedu re are in of multiple sites the result s (HCC) section. Encounter for long-term (current) use of medicatio ns Vitamin D deficiency, unspecified CBC BRANCH OFFICE Routine 01/25/2020 10:35 Seropositive Result s for this W/DIFF AM OUTBOARD MOTOR INSPECTOR rheumatoid arthritis procedu re are in of multiple sites the result s (HCC) section. Encounter for long-term (current) use of medicatio ns Vitamin D deficiency, unspecified CREATININE, SERUM Routine 01/25/2020 10:35 Seropositive Result s for this AM OUTBOARD MOTOR INSPECTOR rheumatoid arthritis procedu re are in of multiple sites the result s (HCC) section. Encounter for long-term (current) use of medicatio ns Vitamin D deficiency, unspecified SEDIMENTATION RATE, Routine 01/25/2020 10:35 Seropositive Resu lts for this AUTOMATED AM OUTBOARD MOTOR INSPECTOR rheumatoid arthritis procedu re are in of multiple sites the result s (HCC) section. Encounter for long-term (current) use of medicatio ns Vitamin D deficiency, unspecified C-REACTIVE PROTEIN Routine 01/25/2020 10:35 Seropositive Resul ts for this AM OUTBOARD MOTOR INSPECTOR rheumatoid arthritis procedu re are in of multiple sites the result s (HCC) section. Encounter for long-term (current) use of medicatio ns Vitamin D deficiency, unspecified ALT Routine 01/25/2020 10:35 Seropositive Results for this AM OUTBOARD MOTOR INSPECTOR rheumatoid arthritis procedu re are in of multiple sites the result s (HCC) section. Encounter for long-term (current) use of medicatio ns Vitamin D deficiency, unspecified AST Routine 01/25/2020 10:35 Seropositive Results for this AM OUTBOARD MOTOR INSPECTOR rheumatoid arthritis procedu re are in of multiple sites the result s (HCC) section. Encounter for long-term (current) use of medicatio ns Vitamin D deficiency, unspecified CALCIUM Routine 01/25/2020 10:35 Seropositive Results for this AM OUTBOARD MOTOR INSPECTOR rheumatoid arthritis procedu re are in of multiple sites the result s (HCC) section. Encounter for long-term (current) use of medicatio ns Vitamin D deficiency, unspecified ALBUMIN Routine 01/25/2020 10:35 Seropositive Results for this AM OUTBOARD MOTOR INSPECTOR rheumatoid arthritis procedu re are in of multiple sites the result s (HCC) section. Encounter for long-term (current) use of medicatio ns Vitamin D deficiency, unspecified documented in this encounter Results (ABNORMAL) Glomerular filtration rate (GFR) (01/25/2020 10:35 AM OUTBOARD MOTOR INSPECTOR) athologist Signature GFR 40 (A) 01/26/2020 [facility] 2:05 PM OUTBOARD MOTOR INSPECTOR [facility]ENTER [facility] 48 (A) 01/26/2020 [facility] Georgian GFR 2:05 PM OUTBOARD MOTOR INSPECTOR [facility]ENTER [facility] Comment: GFR calculated from serum creatinine v alue Chronic Kidney Disease less than 60 mL/m in/1.73 m2 Kidney Failure less than 15 mL/min/1.73 m2 Note: effective 07/01/06 IDMS-Traceable MDRD Study Equation used. Specimen Anatomical Collection Method Collection Time Receive d Time (Source) Location / / Volume Laterality 01/25/2020 10:35 01/25/2020 AM OUTBOARD MOTOR INSPECTOR 10:35 AM OUTBOARD MOTOR INSPECTOR Outside Referring Lab Provider LAB BLOOD ORDERABLES Performing Organization Address City/[facility]/ZIP Code Phon e Number [facility] [address] [place] [phone] (ABNORMAL) ESR-Sed rate (01/25/2020 10:35 AM OUTBOARD MOTOR INSPECTOR) athologist Signature Sed Rate 67 (H) 0 - 29 01/26/2020 [facility] mm/hr 1:43 PM OUTBOARD MOTOR INSPECTOR [facility]ENTER [facility] Specimen Anatomical Collection Method Collection Time Receive d Time (Source) Location / / Volume Laterality Blood (Blood, 01/25/2020 10:35 01/26/2020 Venous) AM OUTBOARD MOTOR INSPECTOR 1:01 PM OUTBOARD MOTOR INSPECTOR Outside Referring Lab Provider LAB BLOOD ORDERABLES Performing Organization Address City/[facility]/ZIP Code Phon e Number [facility] [address] [place] [phone] (ABNORMAL) CBC Branch Off w/Diff (01/25/2020 10:35 AM OUTBOARD MOTOR INSPECTOR) [facility] gist Method Time Signature WBC 6.3 3.5 - 10.5 01/25/2020 [facility] K/uL 12:11 PM OUTBOARD MOTOR INSPECTOR FALLS RBC 3.84 (L) 3.90 - 01/25/2020 [facility] 5.00 M/uL 12:11 PM OUTBOARD MOTOR INSPECTOR FALLS Hemoglobin 11.3 (L) 12.0 - 01/25/2020 [facility] 15.5 g/dL 12:11 PM OUTBOARD MOTOR INSPECTOR FALLS Hematocrit 35.0 35.0 - 01/25/2020 [facility] 44.0 % 12:11 PM OUTBOARD MOTOR INSPECTOR FALLS Platelets 181 150 - 450 01/25/2020 [facility] K/uL 12:11 PM OUTBOARD MOTOR INSPECTOR FALLS MCV 91.1 81.6 - 01/25/2020 [facility] 98.3 fL 12:11 PM OUTBOARD MOTOR INSPECTOR FALLS MCH 29.4 26.0 - 01/25/2020 [facility] 32.0 pg 12:11 PM OUTBOARD MOTOR INSPECTOR FALLS MCHC 32.3 32.0 - 01/25/2020 [facility] 36.0 g/dL 12:11 PM OUTBOARD MOTOR INSPECTOR FALLS RDW 13.3 11.9 - 01/25/2020 [facility] 15.5 % 12:11 PM OUTBOARD MOTOR INSPECTOR FALLS Lymphocytes % 18.3 % 01/25/2020 [facility] 12:11 PM OUTBOARD MOTOR INSPECTOR FALLS Mid-size Cells 9.5 % 01/25/2020 [facility] 12:11 PM OUTBOARD MOTOR INSPECTOR FALLS Granulocytes/Jean Claude 72.2 % 01/25/2020 [facility] trophils 12:11 PM OUTBOARD MOTOR INSPECTOR FALLS Lymphocytes 1.2 0.9 - 2.9 01/25/2020 [facility] Absolute K/uL 12:11 PM OUTBOARD MOTOR INSPECTOR FALLS MIDS Absolute 0.6 0.4 - 1.5 01/25/2020 [facility] K/uL 12:11 PM OUTBOARD MOTOR INSPECTOR FALLS Granulocytes/Jean Claude 4.5 1.7 - 7.0 01/25/2020 [facility] trophils K/uL 12:11 PM OUTBOARD MOTOR INSPECTOR FALLS Absolute Specimen Anatomical Collection Method Collection Time Receive d Time (Source) Location / / Volume Laterality Blood (Blood, 01/25/2020 10:35 01/25/2020 Venous) AM OUTBOARD MOTOR INSPECTOR 10:35 AM OUTBOARD MOTOR INSPECTOR Outside Referring Lab Provider LAB BLOOD ORDERABLES Performing Organization Address City/[facility]/ZIP Code Phon e Number [facility] [address] [place] [address] Albumin (01/25/2020 10:35 AM OUTBOARD MOTOR INSPECTOR) athologist Signature Albumin, Serum 4.0 3.5 - 5.0 01/26/2020 [facility] g/dL 2:05 PM OUTBOARD MOTOR INSPECTOR [facility] Specimen Anatomical Collection Method Collection Time Receive d Time (Source) Location / / Volume Laterality Blood (Blood, 01/25/2020 10:35 01/26/2020 Venous) AM OUTBOARD MOTOR INSPECTOR 1:01 PM OUTBOARD MOTOR INSPECTOR Outside Referring Lab Provider LAB BLOOD ORDERABLES Performing Organization Address [facility]/ZIP Code Phon e Number [facility] [address] [place] [phone] (ABNORMAL) Creatinine, Serum (01/25/2020 10:35 AM OUTBOARD MOTOR INSPECTOR) athologist Signature Creatinine 1.3 (H) 0.4 - 1.2 01/26/2020 [facility] mg/dL 2:05 PM OUTBOARD MOTOR INSPECTOR [facility] Specimen Anatomical Collection Method Collection Time Receive d Time (Source) Location / / Volume Laterality Blood (Blood, 01/25/2020 10:35 01/26/2020 Venous) AM OUTBOARD MOTOR INSPECTOR 1:01 PM OUTBOARD MOTOR INSPECTOR Outside Referring Lab Provider LAB BLOOD ORDERABLES Performing Organization Address City/[facility]/ZIP Code Phon e Number [facility] [address] [place] [address] AST (01/25/2020 10:35 AM OUTBOARD MOTOR INSPECTOR) athologist Signature AST 28 8 - 43 U/L 01/26/2020 [facility] 2:05 PM OUTBOARD MOTOR INSPECTOR [facility]ENTER [facility] Specimen Anatomical Collection Method Collection Time Receive d Time (Source) Location / / Volume Laterality Blood (Blood, 01/25/2020 10:35 01/26/2020 Venous) AM OUTBOARD MOTOR INSPECTOR 1:01 PM OUTBOARD MOTOR INSPECTOR Outside Referring Lab Provider LAB BLOOD ORDERABLES Performing Organization Address City/[facility]/ZIP Code Phon e Number [facility] [address] [place] [address] ALT (01/25/2020 10:35 AM OUTBOARD MOTOR INSPECTOR) athologist Signature ALT (SGPT) 22 0 - 34 U/L 01/26/2020 [facility] 2:05 PM OUTBOARD MOTOR INSPECTOR [facility] Specimen Anatomical Collection Method Collection Time Receive d Time (Source) Location / / Volume Laterality Blood (Blood, 01/25/2020 10:35 01/26/2020 Venous) AM OUTBOARD MOTOR INSPECTOR 1:01 PM OUTBOARD MOTOR INSPECTOR Outside Referring Lab Provider LAB BLOOD ORDERABLES Performing Organization Address [facility] Phon e Number [facility] [address] [place] [phone] (ABNORMAL) C-reactive protein (01/25/2020 10:35 AM OUTBOARD MOTOR INSPECTOR) athologist [facility] CRP 11.7 (H) 0.0 - 4.9 01/26/2020 [facility] mg/L 2:05 PM [facility] Specimen Anatomical Collection Method Collection Time Receive d Time (Source) Location / / Volume Laterality Blood (Blood, 01/25/2020 10:35 01/26/2020 Venous) AM OUTBOARD MOTOR INSPECTOR 1:01 PM OUTBOARD MOTOR INSPECTOR Outside Referring Lab Provider LAB BLOOD ORDERABLES Performing Organization Address City/[facility] Phon e Number [facility] [address] [place] [phone] Vitamin D, Total ([facility] preferred) (01/25/2020 10:35 AM OUTBOARD MOTOR INSPECTOR) athologist [facility] Vitamin D, 48.5 ng/mL 01/26/2020 [facility] Total 2:04 PM OUTBOARD MOTOR INSPECTOR [facility]ENTER [facility] Comment: Deficient ?<20 ? ng/mL Insufficient ? 20-<30 ??ng/mL Sufficient ? 30-100 ??ng/mL Vitamin D2/D3 fractionation is recommend ed at the discretion of the clinician if Total Vitamin D is w ithin deficient or insufficient range. Specimen Anatomical Collection Method Collection Time Receive d Time (Source) Location / / Volume Laterality Blood (Blood, 01/25/2020 10:35 01/26/2020 Venous) AM OUTBOARD MOTOR INSPECTOR 1:01 PM OUTBOARD MOTOR INSPECTOR Outside Referring Lab Provider LAB BLOOD ORDERABLES Performing Organization Address City/State/ZIP Code Phon e Number [facility] [address] [place] [address] Calcium (01/25/2020 10:35 AM OUTBOARD MOTOR INSPECTOR) P athologist Signature Calcium, 10.1 8.4 - 10.2 01/26/2020 [facility] Total,S mg/dL 2:05 PM OUTBOARD MOTOR INSPECTOR [facility] Specimen Anatomical Collection Method Collection Time Receive d Time (Source) Location / / Volume Laterality Blood (Blood, 01/25/2020 10:35 01/26/2020 Venous) AM OUTBOARD MOTOR INSPECTOR 1:01 PM OUTBOARD MOTOR INSPECTOR Outside Referring Lab Provider LAB BLOOD ORDERABLES Performing Organization Address City/State/ZIP Code Phon e Number [facility] [address] [place] [phone] documented in this encounter Visit Diagnoses Diagnosis Seropositive rheumatoid arthritis of [facility] ([facility]) Encounter for long-term (current) use of medications Encounter for long-term (current) use of other medications Vitamin D deficiency, unspecified documented in this encounter Care Teams Roller Maker Relationship Specialty Start Date End Date Corrine Vazquez MD PCP - General Family Medicine 07/07/19 08/19/[address] [place] [address] documented as of this encounter
--- OUTSIDE RECORDS SUMMARY | 2021-09-05 00:11 | XMS_ITS | Encounter Summary ---
:1945 Author Organization [facility] Address [address] [place] [address] Care Team Providers Name Role Phone Lincoln Vazquez MD Primary Care Provider Reason for Visit Reason Onset Date Comments Diabetes numbers low 11/01/2019 Encounter Details Date Type Department Care Team Description 11/01/2019 Telephone [place] Corrine Vazquez, Diabetes numbers low [address] [place], [place] [address] [phone] [place] [address] Social History Tobacco Use Types Packs/Day Years [...] or relatives? How often do you attend spiritism or More than 4 times per year 12/23/2018 sikh services? Do you belong to any clubs or No 12/23/2018 organizations such as spiritism groups, unions, fraternal or athletic groups, or [...] Telephone Encounter - Margareth Sanchez RN - 11/02/2019 8:14 AM CDT Noted. Telephone Encounter - Corrine Vazquez MD - 11/01/2019 6:37 PM CDT I called and talked to Marcial. She will send us an update on her BS next Thursday and will stay on 20units of [facility] for now. Telephone Encounter - Margareth Sanchez RN - 11/01/2019 3:54 PM CDT Patient reports since starting Metformin her blood sugars having been running lower. Thursday Evenin Night time after meal 215 3:30AM Thursday 136 Thursday AM 128 Noon Thursday 198 Evening 136 Night time 166 Thursday Morning 2AM 151 Thursday AM 93 Evening 185 Nighttime Thursday 202 Thursday AM 106. She reports she is feeling well. She decreased her Basaglar insulin Thursday to 20 units. Let us know if you'd like to make any changes. Telephone Encounter - Luciana Albarado - 11/01/2019 3:12 PM CDT Pt called stating since she has been on the Metformin her numbers have been lower than normal. Please call Pt at [phone] to advise. documented in this encounter Plan of Treatment Not on filedocumented as of this encounter Goals Goal Patient Goal Associated Recent Patient-Stated? Author Type Problems Progress Routine Health General No change Peter Monzon (02/05/2021 Abbie Murray, 11:19 AM DIETICIAN) RN Note: Formatting of this note is differe nt from the original. Routine Health Management Care Team Patient Care Team: Corrine Vazquez MD as PCP - General ([facility] Medicine) Yossi N Delroy, RN as Registered Nurse (Diabetes Education) Abbie Ramesh, RN as Acetylene Torch Operator Future Scheduled Appointments No future appointments. [...] [facility] Pneumococcal Vaccine: <64 Complete d OM Pneumococcal Vaccine: 65+ Years Co mpleted HPV Vaccines Aged Out Notes: Due: Urine Protein screening Eye exam AWV A1C Lipid panel Diabetes Management General No change (02/05/2021 11:17 AM No Abbie Ramesh, RN DIETICIAN) Note: Formatting of this note is differe [...] on filedocumented in this encounter Care Teams Business Asst Relationship Specialty Start Date End Date Corrine Vazquez MD PCP - General Family Medicine 07/07/19 08/19/[address] [place] [address] documented as of this encounter
--- OUTSIDE RECORDS SUMMARY | 2021-09-05 00:11 | XMS_ITS | Encounter Summary ---
:1945 Author Organization [facility] Address [address] [place] [address] Care Team Providers Name Role Phone Lincoln Vazquez MD Primary Care Provider Reason for Visit Reason Onset Date Comments Blood sugar numbers 11/07/2019 Encounter Details Date Type Department Care Team Description 11/07/2019 Telephone [facility] Corrine Vazquez, Blood sugar numbers [address] [place], [place] [address] [phone] [place] [address] ([facility]) Social History [...] or relatives? How often do you attend lutheran or More than 4 times per year 12/23/2018 mormonism services? Do you belong to any clubs or No 12/23/2018 organizations such as lutheran groups, unions, fraternal or athletic groups, or [...] Telephone Encounter - Margareth Sanchez RN - 11/10/2019 8:29 AM CDT Noted. Telephone Encounter - Corrine Vazquez MD - 11/09/2019 6:10 PM CDT I called and talked to Lurene. Telephone Encounter - Hali Cormier MA - 11/07/2019 1:22 PM CDT Spoke with patient and relayed message regarding BS and Ha1C and kidney tests. Patient states that she was in to see her heart doctor at [facility] Dr. Currie about a week or so ago who wants her tohave her Ha1C test done next month as he is concerned about her BS. Patient is wondering what she should do about her low BS numbers as she is feeling shakey and seeing green when she looks at things. Should she cut back on her Glipizide? Please advise as she would like to know if you could look at Dr. Currie's notes as well. Telephone Encounter - Corrine Vazquez MD - 11/07/2019 12:41 PM CDT Let Luclemencia know that her BS are looking good continue doing what she is doing and as discussed recheck her A1-c and her kidney tests in January/first week in February. Telephone Encounter - Margareth Sanchez RN - 11/07/2019 9:10 AM CDT Patient called with recent blood sugar numbers. She is taking 21 units Basaglar every HS, Metformin BID and Glipizide 2 tablets in the am. 11/06 AM 83 (only took one Glipizide) because she felt her numbers were low and she felt terrible. 11/05 AM 93 (only took one Glipizide) 11/05 Noon 145 11/05 Even 138 11/04 AM 95 11/04 Gez157 11/04 HS 185 11/03 AM 104 11/03 Noon 103 11/03 Ofelia 120 18 HS 187 9 AM 91 9 HS 133 11/01 AM 92 11/01 Noon 181 11/01 HS 295 Telephone Encounter - Luciana Albarado - 11/07/2019 8:26 AM CDT Pt called per Dr. Vazquez request to give her blood sugar numbers. Please call Pt at [phone] to advise. documented in this encounter Plan of Treatment Not on filedocumented as of this encounter Goals Goal Patient Goal Associated Recent Patient-Stated? Author Type Problems Progress Routine Health General No change Peter Monzon (02/05/2021 Abbie Murray, 11:19 AM NITRILES LAB TECHNICIAN) RN Note: Formatting of this note is differe nt from the original. Routine Health Management Care Team Patient Care Team: Corrine Vazquez MD as PCP - [facility]) Yossi Potts RN as Registered Nurse (Diabetes Education) Abbie Ramesh RN as Talent Acquisition Lead Future Scheduled Appointments No future appointments. Health Maintenance Health Maintenance Topic Date Due Urine Protein Screening 05/31/2020 Lipid Panel 09/05/2020 Glaucoma Screening 67+ Yr 12/25/2020 Ophthalmology Exam 12/25/2020 [facility] Annual Wellness 01/12/2021 Hemoglobin A1C [...] change (02/05/2021 11:17 AM Abbie Monzon, RN NITRILES LAB TECHNICIAN) Note: Formatting of this note is [...] on filedocumented in this encounter Care Teams Attending Ambulatory Care Relationship Specialty Start Date End Date Corrine Vazquez MD PCP - General Family Medicine 07/07/19 08/19/[address] [place] [address] documented as of this encounter
--- OUTSIDE RECORDS SUMMARY | 2021-09-05 00:11 | XMS_ITS | Encounter Summary ---
:[address] [facility] Address [address] [place] [address] Care Team Providers Name Role Phone Lincoln Vazquez MD Primary Care Provider Reason for Visit Reason Onset Date Comments Refills 12/13/2019 Lancets Encounter Details Date Type Department Care Team Description 12/13/2019 Telephone [place] Corrine Vazquez, Refills (Lancets) [address] [place], [place] [address] [phone] [place] [address] ([facility]) Social History Tobacco Use Types Packs/Day Years [...] or relatives? How often do you attend orthodoxy or More than 4 times per year 12/23/2018 scientology services? Do you belong to any clubs or No 12/23/2018 organizations such as orthodoxy groups, unions, fraternal or athletic groups, or [...] this encounter Miscellaneous Notes Telephone Encounter - Angie Bynum RN - 12/13/2019 1:24 PM CDT Pt called regarding a refill on her test strips. Pt was informed that Dr Vazquez refilled all of her medications and supplies 10/28/2019. Pt also is asking why other Rx are for a 3 month supplies but the lancets she recently got are a 1 month supply. Pt assured she has enough refills for 1 year on that also. documented in this encounter Plan of Treatment Not on filedocumented as of this encounter Goals Goal Patient Goal Associated Recent Patient-Stated? Author Type Problems Progress Routine Health General No change Peter Monzon (02/05/2021 Abbie Murray, 11:19 AM RECORDS MANAGEMENT MANAGER) RN Note: Formatting of this note is differe nt from the original. Routine Health Management Care Team Patient Care Team: Corrine Vazquez MD as PCP - General ([facility] Medicine) Yossi Potts RN as Registered Nurse (Diabetes Education) Abbie Ramesh RN as Crusher Screen Repairer Future Scheduled Appointments No future appointments. Health Maintenance Health Maintenance Topic Date Due Urine Protein Screening 05/31/2020 Lipid Panel 09/05/2020 Glaucoma Screening 67+ Yr 12/25/2020 Ophthalmology Exam 12/25/2020 [facility] Annual Wellness 01/12/2021 Hemoglobin A1C 01/24/2021 Diabetic Foot Exam 03/16/2021 Colorectal Cancer Screening: Colonoscop y 05/21/2021 Fall Risk Performed 06/05/2021 Mammogram 12/03/2021 COVID-19 Vaccine Completed [facility] [place] Pneumococcal Vaccine: <64 Complete d [facility] [place] [facility] Pneumococcal Vaccine: 65+ Years Co mpleted HPV Vaccines Aged Out Notes: Due: Urine Protein screening Eye exam AWV A1C Lipid panel Diabetes Management General No change (02/05/2021 11:17 AM Abbie Monzon, RN RECORDS MANAGEMENT MANAGER) Note: Formatting of this note is [...] on filedocumented in this encounter Care Teams Analytics Manager Relationship Specialty Start Date End Date Corrine Vazquez MD PCP - General Family Medicine 07/07/19 08/19/[address] [place] [address] documented as of this encounter
--- OUTSIDE RECORDS SUMMARY | 2021-09-05 00:11 | XMS_ITS | Encounter Summary ---
:1945 Author Organization [facility] Address [address] [place] [address] Care Team Providers Name Role Phone Lincoln Vazquez MD Primary Care Provider Reason for Visit Consultation (Routine) - Closed Specialty Diagnoses / Procedures Referred By Contact Refer red To Contact Diagnoses Medicare annual wellness visit, initial Corrine Vazquez MD Care Coordination [address] [place], [place] [id number] Referral ID Status Reason Start Date Expiration Date Visits V isits Requested Authorized [id number] Closed Specialty 12/23/2018 99 99 Services Required Encounter Details Date Type Department Care Team Description 11/10/2019 Patient Outreach NW Care Coordination Angie Bynum, Counseling and coordination of care (Primary Dx); [address] [place] [address] RN Type 2 diabetes mellitus with other spec ified complication, with long-term current use of insulin (HCC); [address] Mixed hyperlipidemia; [phone] Stage 3 chronic kidney disease, unspecif ied whether stage 3a or 3b CKD (HCC) [place] [address] Social History Tobacco Use Types Packs/Day Years [...] or relatives? How often do you attend catholic or More than 4 times per year 12/23/2018 shinto services? Do you belong to any clubs or No 12/23/2018 organizations such as catholic groups, unions, [facility] or athletic groups, or school groups? How [...] encounter Progress Notes Angie Bynum RN - 11/10/2019 11:00 AM CDT Continued Care Plan - Care Coordination Discussion Date: 11/10/2019 11:30 AM Completed CCM monthly follow up with Marcial She continues to work towards previously set goals. Today's discussion: ??? Reviewed medication list, Pt states she doesn't need any refills today. Diabetes ??? Pt reports that she has added Metformin XR 500 mg BID and this has helped bring her BGs down to normal range. ??? Pt states she has reduced Glipizide to 1 tablet in the AM. ??? Pt states she now takes her Basaglar insulin 20 units at night. ??? Pt states she had one episode of Hypoglycemia at 83 and was shaky and didn't feel well. ??? Pt then over corrected and went too high. ??? Pt's BGs are usually in the 90s and always below 110 now. ??? Pt will monitor closely and if her results are too low 3 days in a row she was told to by Serg Potts to decrease her Basaglar by 2 units. Health Maintenance ?? Pt states she has an apt for a Mammogram in [place] next month. ?? Pt plans to have labs drawn and discuss Diabetic foot exam with PCP the end of November. Follow-up plan: ?? Monthly calls or sooner if needed ?? Reinforced 08/09 nurse line Items for Provider to address: ??? Nothing today. Goals Today 08/26/19 07/19/19 07/06/19 06/03/19 General ??? Diabetes Management Improving Diabetes Management Managed by (PCP or Endocrinology) Dr. Stewart Last: 06/13/19 Next appt: 09/12/19 Lifestyle management (diet and exercise) Home Glucose tracking 1-3 times per day Diabetic medications insulin glargine (BASAGLAR KWIKPEN) 100 UNIT/ML injection glipiZIDE (GLUCOTROL XL) 10 MG 24 hr tablet metFORMIN XR (GLUCOPHATE-XR) 500 MG 24 hr [...] is able to cut her own nails. Pt states she will have A1C drawn end of November. ??? Health Maintenance (pt-stated) Improving On track On track On track On track Health Maintenance Topic Date Due ??? Diabetic Foot Exam 07/16/2019 ??? Mammogram 11/26/2019 ??? Hemoglobin A1C 12/07/2019 ??? Glaucoma Screening 67+ Yr 12/18/2019 ??? Ophthalmology Exam 12/18/2019 ??? Fall Risk Performed 12/24/2019 ??? [facility] Annual Wellness 12/24/2019 ??? Urine Protein Screening 05/31/2020 ??? Lipid Panel 09/05/2020 ??? Colorectal Cancer Screening: Colonoscopy 05/21/2021 ??? [facility] Pneumococcal Vaccine: 65+ Years Completed ? ? OM Pneumococcal Vaccine: <64 Aged Out ??? HPV Vaccines Aged Out Lifestyle ??? Keep your medical appointments On track On track On track On track No future appointments. documented in this encounter Plan of Treatment Not on filedocumented as of this encounter Goals Goal Patient Goal Associated Recent Patient-Stated? Author Type Problems Progress Routine Health General No change No Peter Ramesh (02/05/2021 Abbie Murray, 11:19 AM BUTTON MACHINE OPERATOR) RN Note: Formatting of this note is differe nt from the original. Routine Health Management Care Team Patient Care Team: Corrine Vazquez MD as PCP - General ([facility] Medicine) Yossi Potts, RN as Registered Nurse (Diabetes Education) Abbie Ramesh, ERA as Indian Nanny Future Scheduled Appointments No future appointments. Health [...] change (02/05/2021 11:17 AM Abbie Monzon, RN BUTTON MACHINE OPERATOR) Note: Formatting of this note is differe nt from the original. Diabetes Management Type 2 diabetes mellitus with other spec ified complication (HCC) Managed by (PCP or Endocrinology) Dr. Vazquez (PCP ) Home Glucose tracking 1-3 times per day Diabetic medications insulin glargine (B ASAGLMARIANELA MAGALLANESPEN) 100 UNIT/ML injection 22 units in [...] current use of insulin (HCC) Mixed hyperlipidemia Stage 3 chronic kidney disease, unspecif ied whether stage 3a or 3b CKD (HCC) documented in this encounter Care Teams Personal Computer Network Analyst Relationship Specialty Start Date End Date Corrine Vazquez MD PCP - General Family Medicine 07/07/19 08/19/[address] [place] [address] documented as of this encounter
--- OUTSIDE RECORDS SUMMARY | 2021-09-05 00:11 | XMS_ITS | Encounter Summary ---
:1945 Author Organization [facility] Address [address] [place] [address] Care Team Providers Name Role Phone Lincoln Vazquez MD Primary Care Provider Reason for Visit Reason Comments Diabetes Mellitus Encounter Details Date Type Department Care Team Description 09/12/2019 [facility] Endocrinology Bacilio Stewart, Type 2 diabetes mellitus wit h other specified complication, with long-term current use of insulin (HCC) (Primary Dx); 210 9[facility] MBBS Stage 3 chronic kidney disease (HCC); [place] [address] [place] [address] Mixed hyperlipidemia; [phone] [place], [place] Abnormal liver function test; [address] Essential hypertension Social History Tobacco Use Types Packs/Day Years [...] documented as of this encounter Progress Notes JOSE DE JESUS Austin - 09/12/2019 10:00 AM CDT Telephone Visit Patient: Marcial Adams 74 y.o. female 1945 Date of Service: 09/12/19 Primary care provider: Corrine Vazquez MD Reason for visit: Marcial Adams is a 74 y.o. female presenting for follow up of diabetes. History of presenting illness: Marcial Adams is a female with medical history significantfor type 2 diabetes mellitus, hypertension, DLD, CAD, RA, CKD, BPPV and comorbidities as noted below. She was diagnosed with diabetes in 2007. She was last seen in 05/2019, via telemedicine. She was alone during today's telephone visit. She had an episode of UTI. She was prescribed an antibiotic with which she noticed low sugars. Shecut back on the dose of insulin and glipizide. Later, she was prescribed a different antibiotic andnoticed hyperglycemia. She gradually increased her insulin and glipizide doses. Most recent a1c was 8.3% on 09/06/19, not significantly changed from 8.5% on 06/01/19. Current diabetes regimen includes Glipizide ER 20 mg daily in AM. She has also been on basal insulin, currently Glargine 25 units daily, dose was increased from 22 units on 09/07/19. Our stock replenisher, Denny Potts, has been in touch with her and adjusting her insulin dose. She discontinued Januvia because cost went up to > $400. Tradjenta cost was not affordable either. She declined to transition to GLP1ra due to side effects concern. Metformin was not restarted due to borderline kidney function. She reports compliance with her diabetes regimen. Blood glucose readings from the past week were reviewed. She was checking 1-2 times/day. BG ranged between 106-386. Fasting sugars were reasonable but evening sugars were high. No hypoglycemia. She usually eats 3 meals/day and snack in the morning. She acknowledges dietary indiscretion sometimes. She is not snacking before bedtime anymore. No smoking. Denies any alcohol use. Last eye exam showed no retinopathy in [place]. Dorsal aspectof toes hurts sometimes. Denies any numbness or tingling sensation in feet otherwise. No skin changes or diabetic foot ulcers. No regular exercise. She completed labs on 09/06/19. Serum electrolytes were normal. Creatinine was 1.4 with an eGFR 37. BUN was elevated, 28 (5-25). Serum calcium was normal, 9.7. ALT was elevated, 52 (0-34). Rest of theLFTs were within normal limits. Total cholesterol was 183, triglyceride 234, HDL 37 and LDL 99. PM/SH: Past Medical History: Diagnosis Date ??? Anemia ??? Anxiety ??? Arthritis ??? Cataract ??? Diabetes mellitus (HCC) ??? Disease of thyroid gland ??? Urinary tract infection ??? Varicella ??? Visual impairment glasses Past Surgical History: Procedure Laterality Date ??? APPENDECTOMY ??? CARDIAC SURGERY STENT ??? SECTION, CLASSIC TWO ??? HERNIA REPAIR TWO ??? LYMPH NODE BIOPSY ??? ROTATOR CUFF REPAIR ??? WISDOM TOOTH EXTRACTION Medications: Medications in EHR reviewed. Allergies: Allergies Allergen Reactions ??? Lisinopril Other (see comments) nightmares ??? Azathioprine ??? Azithromycin ??? Olmesartan ??? Statins Other (see comments) Intolerance to Statin Intolerance to Statin Family History: Family History Problem Relation Age of Onset ??? Coronary artery disease Father ??? Lung cancer Father ??? Hypertension Brother ??? Diabetes Brother ??? Breast cancer Mother ??? Goiter Mother ??? Diabetes Daughter ??? No Known Problems Son ??? Diabetes Brother ??? Heart attack Mother's Brother ??? Diabetes Father's Brother ??? Heart disease Father's Brother ??? Goiter Maternal Grandmother ??? Migraines Maternal Grandmother ??? No Known Problems Maternal Grandfather ??? No Known Problems Paternal Grandmother ??? Clotting disorder Paternal Grandfather ??? Diabetes Father's Brother ??? Heart disease Father's Brother ??? Heart disease Father's Brother Social History: Social History Socioeconomic History ??? Marital status: Spouse name: Not on file ??? Number of children: Not on file ??? Years of education: Not on file ??? Highest education level: Not on file Occupational History ??? Not on file Social Needs ??? Financial resource strain: Not hard at all ??? Food insecurity: Worry: Never true Inability: Never true ??? Transportation needs: Medical: No Non-medical: No Tobacco Use ??? Smoking status: Never Smoker ??? Smokeless tobacco: Never Used Substance and Sexual Activity ??? Alcohol use: No Frequency: Never ??? Drug use: No ??? Sexual activity: Never Partners: Male Lifestyle ??? Physical activity: Days per week: 0 days Minutes per session: 0 min ??? Stress: To some extent Relationships ??? Social connections: Talks on phone: More than three times a week Gets together: More than three times a week Attends spiritism service: More than 4 times per year Active member of club or organization: No Attends meetings of clubs or organizations: Never Relationship status: ??? Intimate partner violence: Fear of current or ex partner: No Emotionally abused: No Physically abused: No Forced sexual activity: No Other Topics Concern ??? Not on file Social History Narrative ??? Not on file Review of System: - Upper abdominal pain has resolved. - Denies any nausea or vomiting. - Diarrhea occasionally but better than before. - Denies any chest pain or shortness of breath. - History of RA and Raynaud's, numbness/tingling in hands off and on. - As per HPI, all other systems negative. EXAM: Psych: Patient is conversant and pleasant over the phone. She endorses euthymic mood and is in no acute distress. Rest of exam unable to be completed due to phone interview. Laboratory Work up: Reviewed Imaging: Reviewed Assessment and Plan: 1- Diabetes Mellitus type 2: Suboptimal control. Recent a1c was not significantly changed, 8.3%. Morning/fasting sugars are acceptable with increased glargine dose but evening sugars are high. She acknowledged dietary indiscretion. No hypoglycemia. - Insulin dose was increased recently, she will continue with glargine 25 units daily for now. - Will try glipizide in divided dosing, 10 mg before breakfast and 10 mg before evening meal, instead of 20 mg in the morning. - Discussed that if sugars remain suboptimally controlled, next step will be to transition to short acting insulin or mixed insulin formulation. - Patient was advised to continue to check sugars 1-2 times a day, fasting and alternating before meals and bedtime. She was advised to send us an update in 1 to 2 weeks. She will remain in touch with diabetes education. - Watch your diet for excess carbs and avoid snacking. - Physical activity/exercise as tolerated. 2- Diabetes related complications: - Lipid: LDL 99 in 08/2019. On rosuvastatin 5 mg daily. - No microalbuminuria in 05/2019. She has CKD. Creatinine was 1.4, eGFR 37 in 08/2019. She is on an ACEI. - No smoking - Last eye exam showed no retinopathy in 06/2018. - No skin changes or diabetic foot ulcers. - HTN. BP not checked today due to telephone encounter. - No neuropathy, had normal monofilament exam. 3. Abnormal LFTs: ALT is elevated, rest of the liver tests are within normal limits. We will recheck LFTs before nextvisit. Follow up in 3 months, with a1c, CMP. The patient has consented to be consulted over the telephone without the capability of a physical exam and understands that this does not replace the importance of a face to face visit if problems persist. This is being done during the phase of the CDC COVID crisis and feel that it is in the patient's best interest to be treated over the phone at this time, as the benefits outweigh the risks. Additionally, the patient was made aware that this visit will be billed by time spent. The patient indicates understanding of these issues and agrees with the plan. Time spent during this phone call was 33 minutes. Bacilio Stewart MD Staff Optimization Specialist documented in this encounter Plan of Treatment Not on filedocumented as of this encounter Goals Goal Patient Goal Associated Recent Patient-Stated? Author Type Problems Progress Routine Health General No change No Domitila, Management (02/05/2021 Abbie Murray, 11:19 AM CLAIMS ACCOUNT SPECIALIST) RN Note: Formatting of this note is differe nt from the original. Routine Health Management Care Team Patient Care Team: Corrine Vazquez MD as [facility] Yossi Potts, RN as Registered Nurse (Diabetes Education) Abbie Ramesh RN as Hand Candle Dipper Future Scheduled Appointments No future appointments. Health [...] (02/05/2021 11:17 AM No Abbie Ramesh RN CLAIMS ACCOUNT SPECIALIST) Note: Formatting of this note is differe nt from the original. Diabetes Management Type 2 diabetes mellitus with other spec ified complication (HCC) Managed by (PCP or Endocrinology) Dr. Vazquez (PCP ) Home Glucose tracking 1-3 times per day Diabetic medications insulin glargine (Casi NEWELLGLMARIANELA CALDWELL) 100 UNIT/ML injection 22 units in [...] 500mg daily documented as of this encounter Results (ABNORMAL) CBC ([facility]) (03/16/2020 10:17 AM CLAIMS ACCOUNT SPECIALIST) athologist Signature WBC 7.1 3.5 - 10.5 03/16/2020 [facility] K/uL 10:23 AM CLAIMS ACCOUNT SPECIALIST [place] RBC 3.91 3.90 - 5.00 03/16/2020 [facility] M/uL 10:23 AM CLAIMS ACCOUNT SPECIALIST [place] Hemoglobin 11.5 (L) 12.0 - 15.5 03/16/2020 [facility] g/dL 10:23 AM CLAIMS ACCOUNT SPECIALIST [place] Hematocrit 35.5 35.0 - 44.0 03/16/2020 [facility] % 10:23 AM CLAIMS ACCOUNT SPECIALIST [place] Platelets 199 150 - 450 03/16/2020 [facility] K/uL 10:23 AM CLAIMS ACCOUNT SPECIALIST [place] MCV 90.8 81.6 - 98.3 03/16/2020 [facility] fL 10:23 AM CLAIMS ACCOUNT SPECIALIST [place] MCH 29.4 26.0 - 32.0 03/16/2020 [facility] pg 10:23 AM CLAIMS ACCOUNT SPECIALIST [place] MCHC 32.4 32.0 - 36.0 03/16/2020 [facility] g/dL 10:23 AM CLAIMS ACCOUNT SPECIALIST [place] RDW 13.2 11.9 - 15.5 03/16/2020 [facility] % 10:23 AM CLAIMS ACCOUNT SPECIALIST [place] Specimen Anatomical Collection Method Collection Time Receive d Time (Source) Location / / Volume Laterality Blood 03/16/2020 10:17 03/16/2020 AM CLAIMS ACCOUNT SPECIALIST 10:21 AM CLAIMS ACCOUNT SPECIALIST Bacilio DELA CRUZ LAB BLOOD ORDERABLES Performing Organization Address City/State/ZIP Code Phon e Number [facility] [place] [address] [place] [address] Liver panel (03/16/2020 10:17 AM CLAIMS ACCOUNT SPECIALIST) P athologist Signature Total Protein 7.7 6.3 - 8.2 03/16/2020 [facility] g/dL 6:25 PM [facility] Albumin, Serum 4.2 3.5 - 5.0 03/16/2020 [facility] g/dL 6:25 PM [facility] Total Bilirubin <0.7 0.1 - 1.0 03/16/2020 [facility] mg/dL 6:25 PM [facility] Bilirubin, <0.1 0.0 - 0.3 03/16/2020 [facility] Direct mg/dL 6:25 PM CLAIMS ACCOUNT SPECIALIST [facility] AST 27 8 - 43 U/L 03/16/2020 [facility] 6:[address] [facility] Alkaline 66 38 - 128 03/16/2020 [place] Phosphatase U/L 6:[address] [facility] ALT (SGPT) 21 0 - 34 U/L 03/16/2020 [place] 6:[address] [facility] Specimen Anatomical Collection Method Collection Time Receive d Time (Source) Location / / Volume Laterality Blood 03/16/2020 10:17 03/16/2020 AM CLAIMS ACCOUNT SPECIALIST 5:59 PM CLAIMS ACCOUNT SPECIALIST Bacilio DELA CRUZ LAB BLOOD ORDERABLES Performing Organization Address City/State/ZIP Code Phon e Number [facility] [address] [place] [address] documented in this encounter Visit Diagnoses Diagnosis Type 2 diabetes mellitus with other spec ified complication, with long-term current use of insulin (HCC) - Primary Stage 3 chronic kidney disease (HCC) Mixed hyperlipidemia Abnormal liver function test Nonspecific abnormal results of liver fu nction study Essential hypertension Unspecified essential hypertension documented in this encounter Care Teams Hvac Sheet Metal Installer Relationship Specialty Start Date End Date Corrine Vazquez MD PCP - General Family Medicine 07/07/19 08/19/[address] [place] [address] documented as of this encounter
--- OUTSIDE RECORDS SUMMARY | 2021-09-05 00:11 | XMS_ITS | Encounter Summary ---
:[address] [facility] Address [address] [place] [address] Care Team Providers Name Role Phone Lincoln Vazquez MD Primary Care Provider Reason for Visit Reason Onset Date Comments talk to nurse/lab results 09/08/2019 Encounter Details Date Type Department Care Team Description 09/08/2019 Telephone [place] Corrine Vazquez talk to nurse/lab [address] [facility] MD Lincoln results [place], [place] [address] [phone] [place] [address] Social History Tobacco Use Types Packs/Day Years [...] or relatives? How often do you attend christian or More than 4 times per year 12/23/2018 amish services? Do you belong to any clubs or No 12/23/2018 organizations such as christian groups, unions, fraternal or athletic groups, or [...] Telephone Encounter - Lana Knight LPN - 11/02/2019 2:29 PM CDT Noted Telephone Encounter - Corrine Vazquez MD - 11/02/2019 12:12 PM CDT Saw Marcial in the office and addressed. Telephone Encounter - Hali Cormeir MA - 09/09/2019 8:51 AM CDT Spoke with patient , relayed labs results and patient would prefer to continue to see you for diabetes. Patient does have a telephone visit with Dr. Stewart early next week but would like you to review her medications to see if she needs to go on another insulin. Please advise. Telephone Encounter - Corrine Vazquez MD - 09/09/2019 8:10 AM CDT Let Marcial know that her A1-c is 8.3 and previously this was 8.5 but it is still > 8.0. Her other labs including chemistries, LFT, cholesterol panel pretty good. Since Dr. Stewart ([facility]'s Caustic Loader) is the one who ordered these tests he will most likely send her a lab letter as well as most likely adjust her medications. Marcial will be coming to our clinic for her diabetic cares after this sothat she doesn't need to drive to [place]. Let Marcial know that if she doesn't hear from Dr. Stewart's office in the next 7-10 days regarding how to adjust her medications to treat her diabetes to let us know. Or also ask if she was going to go down to [facility] to consult with Dr. Stewart this one last time before switching. Either way is OK. Let me know what she would like to do. Telephone Encounter - Margareth Sanchez RN - 09/08/2019 4:47 PM CDT Patient would like you to review her recent labs results from 09/05 and let her know what you think. She would like a call back on her cell phone as they will be going to [place]. Telephone Encounter - Shenaalia Sow - 09/08/2019 4:35 PM CDT Patient had labs earlier in the week. She is asking to talk to a nurse to get her results. Please call her back [phone]. documented in this encounter Plan of Treatment Not on filedocumented as of this encounter Goals Goal Patient Goal Associated Recent Patient-Stated? Author Type Problems Progress Routine Health General No change Peter Monzon (02/05/2021 Abbie Murray, 11:19 AM DIRECTOR FINANCIAL PLANNING) RN Note: Formatting of this note is differe nt from the original. Routine Health Management Care Team Patient Care Team: oCrrine Vazquez MD as PCP - [facility] ([facility]) Yossi Potts RN as Registered Nurse (Diabetes Education) Abbie Ramesh RN as Prospecting Driller Helper Future Scheduled Appointments No future appointments. Health Maintenance Health Maintenance Topic Date Due Urine Protein Screening 05/31/2020 Lipid Panel 09/05/2020 Glaucoma Screening 67+ Yr 12/25/2020 Ophthalmology Exam 12/25/2020 [facility] Annual Wellness 01/12/2021 Hemoglobin A1C 01/24/2021 Diabetic Foot Exam 03/16/2021 Colorectal Cancer Screening: Colonoscop y 05/21/2021 Fall Risk Performed 06/05/2021 Mammogram 12/03/2021 COVID-19 Vaccine Completed [facility] Pneumococcal Vaccine: <64 Complete d [facility] Pneumococcal Vaccine: 65+ Years Co mpleted HPV Vaccines Aged Out Notes: Due: Urine Protein screening Eye exam AWV A1C Lipid panel Diabetes Management General No change (02/05/2021 11:17 AM Abbie Monzon, RN DIRECTOR FINANCIAL PLANNING) Note: Formatting of this note is differe [...] on filedocumented in this encounter Care Teams Textile Conservator Relationship Specialty Start Date End Date Corrine Vazquez MD PCP - General Family Medicine 07/07/19 08/19/[address] [place] [address] documented as of this encounter
--- OUTSIDE RECORDS SUMMARY | 2021-09-05 00:11 | XMS_ITS | Encounter Summary ---
:[address] [facility] Address [address] [place] [address] Care Team Providers Name Role Phone Lincoln Herrera MD Primary Care Provider Reason for Visit Reason Onset Date Comments RX 02/15/2020 Encounter Details Date Type Department Care Team Description 02/15/2020 Telephone [place] Corrine Herrera MD RX [address] [place], [place] [address] [place], [place] [phone] (Wo rk) Social History Tobacco Use Types [...] Telephone Encounter - Lana Knight LPN - 02/20/2020 2:24 PM CST Faxed to [facility] [employer] Addendum Note - Corrine Herrera MD - 02/20/2020 2:20 PM NIT[employer] OPERATOR Addended by: Corrine HERRERA on: 02/20/2020 02:20 PM Modules accepted: Orders [employer] OPERATOR Addendum Note - Nilesh Sanchez RN - 02/20/2020 1:52 PM NITR[employer] OPERATOR Addended by: NILESH SANCHEZ on: 02/20/2020 01:52 PM Modules accepted: Orders IC [employer]ANT OPERATOR Telephone Encounter - Nilesh Sanchez RN - 02/20/2020 1:50 PM CST Patient received a letter that the accucheck Alison plus and its lancets will no longer be covered after 02/17/20. Patient had a letter stating the alternative would be the Contour next one. Please reviewRx request. IC [employer]ANT OPERATOR Telephone Encounter - Nilesh Sanchez RN - 02/20/2020 1:46 PM CST Patient informed, she will keep track and let us know. [employer] OPERATOR Telephone Encounter - Corrine Herrera MD - 02/20/2020 12:14 PM CST I would have Marcial skip her Basalgar tonight and then take it the next AM and continue to take it in the morning. She can also take a small snack prior to going to bed if she continues to run low in the AM. Have her call us next week with an update. Have her start taking her blood sugars three times a day for this coming 7-10 days. In the AM, prior to dinner and before she goes to bed. [employer]ANT OPERATOR Telephone Encounter - Nilesh Sanchez RN - 02/20/2020 8:34 AM CST Patient has concerns that she is getting numbers in the 60s in the mornings and if she increased herBasalglar (currently she decreased this to 12 units in the PM) she will have even lower numbers in the AM. Is there a different time she can take this medication to even out her lower numbers in the morning? Or a different insulin regimen that can even out her numbers overall while still bringing downher A1C? [employer]ANT OPERATOR Telephone Encounter - Corrine Herrera MD - 02/19/2020 1:59 PM CST Let Lurene know that a little bit of diarrhea or loose stool from the Metformin is to be expected and hopefully is tolerable for her. Also noting that her A1c has actually gone up from 8.3-8.4 even though she is having some lower sugars in the 80s and 90s this is also to be expected and anticipated.If anything she would actually need a little bit more insulin to try to get her A1c down into the mid or even lower 7 range. We can either try to do this by increasing her insulin or we could consideralternative medications. The other medications we would consider have potential to be rather expensive however we would not know precisely what her cost would be unless we ordered them and she were totry them. Let me know if she has any thoughts about wanting to try another different medication or whether or not she would be okay with increasing her insulin by at least 3 to 5 units/day. If she expresses too much concerns and would prefer to just stay where she is that certainly is her choice. [employer]ANT OPERATOR Telephone Encounter - Nilesh Sanchez RN - 02/16/2020 2:28 PM CST Patient informed. Patient had an A1c 12/15/19 at [facility] of 8.4. Please advise on if she shouldchange her medications etc. She questions if she should lower her insulin? She also wanted you to know that the Metformin is giving her a little diarrhea. [employer]ANT OPERATOR Telephone Encounter - Corrine Herrera MD - 02/15/2020 3:38 PM CST Marcial's last A1c was about 8.3 this was in August. Have Marcial come in to get her next A1c taken. She does not have to be fasting for this and if she wants to come in tomorrow or sometime next week that would be good. Based upon her A1c we could then make some recommendations regarding her medications. If she is a little bit concerned about her lower sugars in the morning she could take a little snack at bedtime before she goes to sleep. This could be have a piece of bread with a little bit of peanut butter on it or something like that. [employer]ANT OPERATOR Telephone Encounter - Nilesh Sanchez RN - 02/15/2020 3:21 PM CST Patient does not wish to try another statin at this time as she's had such bad luck with them. She also wanted to know if she could be taking too much diabetic medication. She reports 18 times inthe month of January patient's Blood sugar has been in the 80-90s when she woke up. She is taking 2 Metformin in the AM and 1 in the PM. She is also taking 16-17 units of insulin in the evenings. Shequestions if she needs to cut back. In the month of December she only had 9 times her blood sugar was that low in the morning and she was only taking Metformin one tablets BID. Patient stated when it is this low she can get a bit shaky. Please advise on medication question. [employer]ANT OPERATOR Telephone Encounter - Corrine Herrera MD - 02/15/2020 2:39 PM CST There is another one we can try called Sherwin. If she is willing to try let me know and I will send in for her. [employer]ANT OPERATOR Telephone Encounter - Nilesh Sanchez RN - 02/15/2020 9:44 AM CST Please advise if there is another alternative you'd like to prescribe. [employer]ANT OPERATOR Telephone Encounter - Phoebe Donohue - 02/15/2020 9:26 AM CST Patient was prescribed Pravastatin but stopped taking it because it caused nightmares. Please call her at [phone]. [employer] OPERATOR documented in this encounter Plan of Treatment Not on filedocumented as of this encounter Goals Goal Patient Goal Associated Recent Patient-Stated? Author Type Problems Progress Routine Health General No change Peter Monzon (02/05/2021 Abbie Murray, 11:19 AM NITRIC AC[employer] PLANT OPERATOR) RN Note: Formatting of this note is differe nt from the original. Routine Health Management Care Team Patient Care Team: Corrine Her[facility] Yossi Potts, RN as Registered Nurse (Diabetes Education) Abbie Ramesh RN as Agricultural Extension Educator Future Scheduled Appointments No future appointments. Health Maintenance Health Maintenance Topic Date Due Urine Protein Screening 05/31/2020 Lipid Panel 09/05/2020 Glaucoma Screening 67+ Yr 12/25/2020 Ophthalmology Exam 12/25/2020 [facility] Wellness 01/12/2021 Hemoglobin A1C 01/24/2021 Diabetic [...] change (02/05/2021 11:17 AM Abbie Monzon RN NITR[employer] OPERATOR) Note: Formatting of this note is [...] Primary documented in this encounter Care Teams Mounter Clarinets Relationship Specialty Start Date End Date Corrine Herrera MD PCP - General Family Medicine 07/07/19 08/19/[address] [place] [address] documented as of this encounter
--- OUTSIDE RECORDS SUMMARY | 2021-09-05 00:11 | XMS_ITS | Encounter Summary ---
:1945 Author Organization [facility] Address [address] [place] [address] Care Team Providers Name Role Phone Lincoln Vazquez MD Primary Care Provider Reason for Visit Reason Comments Leg Pain with touch on left calf x 2- 3 days Encounter Details Date Type Department Care Team Description 02/21/2020 Office Visit [place] Antonio Madsen, Phlebitis and thombophlb of superfic vessels of low extrem (Primary Dx); [address] Systolic murmur [place], [place] [address] [place] [address] [place] [phone] [id number] Social History Tobacco Use Types Packs/Day Years [...] or relatives? How often do you attend [employer]itan or More than 4 times per year 12/23/2018 episcopal services? Do you belong to any clubs or No 12/23/2018 organizations such as [employer]aritan groups, unions, fraternal or athletic groups, or [...] Sign Reading Time Taken Comments Blood Pressure 134/72 02/21/2020 1:59 PM DATABASE DEVELOPMENT PROJECT MANAGER Pulse 76 02/21/2020 1:59 PM DATABASE DEVELOPMENT PROJECT MANAGER Temperature 36.8 ??C (98.3 ??F) 02/21/2020 1:59 PM DATABASE DEVELOPMENT PROJECT MANAGER Respiratory Rate 16 02/21/2020 1:59 PM DATABASE DEVELOPMENT PROJECT MANAGER Oxygen Saturation - - Inhaled Oxygen Concentration - - Weight 82.7 kg (182 lb 6.4 oz) 02/21/2020 1:59 PM DATABASE DEVELOPMENT PROJECT MANAGER Height - - Body Mass Index 32.2 01/13/2020 2:24 PM DATABASE DEVELOPMENT PROJECT MANAGER documented in this encounter Patient Instructions Patient InstructionsAntonio Madsen MD - 02/21/2020 2:00 PM CST Images from the original note were not included. Heating pads/ bags to the left leg. Tylenol as needed If taking aleve, use lowest dose and with a meal. Patient Education Thrombophlebitis Thrombophlebitis is a condition in which a blood clot forms in a vein. This can happen in your arms or legs, or in the area between your neck and groin (torso). When this condition happens in a vein that is close to the surface of the body (superficial thrombophlebitis), it is usually not serious.However, when the condition happens in a vein that is deep inside the body (deep vein thrombosis, DVT), it can cause serious problems. What are the causes? This condition may be caused by: ?? Damage to a vein. ?? Inflammation of the veins. ?? A condition that causes blood to clot more easily. ?? Reduced blood flow through the veins. What increases the risk? The following factors may make you more likely to develop this condition: ?? Having a condition that makes blood thicker or more likely to clot. ?? Having an infection. ?? Having major surgery. ?? Experiencing a traumatic injury or a broken bone. ?? Having a catheter in a vein (central line). ?? Having a condition in which valves in the veins do not work properly, causing blood to collect (pool) in the veins (chronic venous insufficiency). ?? An inactive (sedentary) lifestyle. ?? or having recently given . ?? Cancer. ?? Older age, especially being 60 or older. ?? Obesity. ?? Smoking. ?? Taking medicines that contain estrogen, such as control pills. ?? Having varicose veins. ?? Using drugs that are injected into the veins (intravenous, IV). What are the signs or symptoms? The main symptoms of this condition are: ?? Swelling and pain in an arm or leg. If the affected vein is in the leg, you may feel pain while standing or walking. ?? Warmth or redness in an arm or leg. Other symptoms include: ?? Low-grade fever. ?? Muscle aches. ?? A bulging vein (venous distension). In some cases, there are no symptoms. How is this diagnosed? This condition may be diagnosed based on: ?? Your symptoms and medical history. ?? A physical exam. ?? Tests, such as: ? Blood tests. ? A test that uses sound waves to make images (ultrasound). How is this treated? Treatment depends on how severe the condition is and which area of the body is affected. Treatment may include: ?? Applying a warm compress or heating pad to affected areas. ?? Wearing compression stockings to help prevent blood clots and reduce swelling in your legs. ?? Raising (elevating) the affected arm or leg above the level of your heart. ?? Medicines, such as: ? Anti-inflammatory medicines, such as ibuprofen. ? Blood thinners (anticoagulants), such as heparin. ? Antibiotic medicine, if you have an infection. ?? Removing an IV that may be causing the problem. In rare cases, surgery may be needed to: ?? Remove a damaged section of a vein. ?? Place a filter in a large vein to catch blood clots before they reach the lungs. Follow these instructions at home: Medicines ?? Take [id number] and prescription medicines only as told by your health care provider. ?? If you were prescribed an antibiotic, take it as told by your health care provider. Do not stop using the antibiotic even if you feel better. Managing pain, stiffness, and swelling ?? If directed, put heat on the affected area as often as told by your health care provider. Use theheat source that your health care provider recommends, such as a moist heat pack or a heating pad. ? Place a towel between your skin and the heat source. ? Leave the heat on for 20-30 minutes. ? Remove the heat if your skin turns bright red. This is especially important if you are not able tofeel pain, heat, or cold. You may have a greater risk of getting burned. ?? Elevate the affected area above the level of your heart while you are sitting or lying down. Activity ?? Return to your normal activities as told by your health care provider. Ask your health care provider what activities are safe for you. ?? Avoid sitting or lying down for long periods. If possible, stand up and walk around regularly. If you are taking blood thinners: ?? Take your medicine exactly as told, at the same time every day. ?? Avoid activities that could cause injury or bruising, and follow instructions about how to prevent falls. ?? Wear a medical alert bracelet or carry a card that lists what medicines you take. General instructions ?? Drink enough fluid to keep your urine pale yellow. ?? Wear compression stockings as told by your health care provider. ?? Do not use any products that contain nicotine or tobacco, such as cigarettes and e-cigarettes. Ifyou need help quitting, ask your health care provider. ?? Keep all follow-up visits as told by your health care provider. This is important. Contact a health care provider if: ?? You miss a dose of your blood thinner, if applicable. ?? Your symptoms do not improve. ?? You have unusual bruising. ?? You have nausea, vomiting, or diarrhea that lasts for more than one day. Get help right away if: ?? You have any of these problems: ? New or worse pain, swelling, or redness in an arm or leg. ? Numbness or tingling in an arm or leg. ? Shortness of breath. ? Chest pain. ? Severe pain in your abdomen. ? Fast breathing. ? A fast or irregular heartbeat. ? Blood in your vomit, stool, or urine. ? A severe headache or confusion. ? A cut that does not stop bleeding. ?? You feel light-headed or dizzy. ?? You cough up blood. ?? You have a serious fall or accident, or you hit your head. These symptoms may represent a serious problem that is an emergency. Do not wait to see if the symptoms will go away. Get medical help right away. Call your local emergency services (911 in the [place] Do not drive yourself to the hospital. Summary ?? Thrombophlebitis is a condition in which a blood clot forms in a vein. This can happen in a vein close to the surface of the body or a vein deep inside the body. ?? This condition can cause serious problems when it happens in a vein deep inside the body (deep vein thrombosis, DVT). ?? The main symptom of this condition is swelling and pain around the affected vein. ?? Treatment may include warm compresses, anti-inflammatory medicines, or blood thinners. This information is not intended to replace advice given to you by your health care provider. Make sure you discuss any questions you have with your health care provider. Document Released: 07/29/2017 Document Revised: 07/29/2017 Document Reviewed: 07/29/2017 [employer] Interactive Patient Education ?? 2020 [employer]. BASE DEVELOPMENT PROJECT MANAGER documented in this encounter Progress Notes Antonio Madsen MD - 02/21/2020 2:00 PM CST Images from the original note were not included. Subjective Patient ID: Marcial Adams is a 74 y.o. female. Chief Complaint Patient presents with ??? Leg Pain with touch on left calf x 2-3 days HPI Patient reports that she has been experiencing pain and sensitivity to touch to left calf for the past 2 days. She first noticed it at night, her right leg was crossed over her left leg (resting on thearea that is bothering her currently). She does not have pain with movement or at rest, but only if pressure is applied to the area. She denies any personal history of DVT. Nor recent trauma, prolongedimmobilization or surgery. No redness of the leg. She states she has noticed her legs BOTH seem swollen but that has been going on for longer than the current problem. Denies chest pain, fevers, cough. The following portions of the patient's chart were reviewed in this encounter and updated as appropriate: Tobacco Allergies Meds Med Hx Surg Hx Fam Hx Soc Hx ROS ROS done as noted in HPI Objective Visit Vitals BP 134/72 (BP Location: Left arm, Patient Position: Sitting) Pulse 76 Temp 36.8 ??C (98.3 ??F) (Temporal) Resp 16 Wt 82.7 kg (182 lb 6.4 oz) BMI 32.20 kg/m?? Smoking Status Never Smoker BSA 1.92 m?? Physical Exam GEN: well appearing, no acute distress, vital signs reviewed HEART: RRR, normal S1/S2, soft holosystolic I/ murmur heard best left sternal border CHEST: Lungs CTA william EXT: No erythema to william lower extremities. William varicosities. Tenderness over cluster of varicose veins on left medial anterior calf. 1+ bilateral pitting edema to william lower third of shins. Measurement of mid calf bilaterally shows right calf is 1.5 cm larger in circumference than the left. Assessment/Plan Diagnosis Plan 1. Phlebitis and thombophlb of superfic vessels of l low extrem 2. Systolic murmur Wells score for DVT is 0. Low risk for DVT. Presentation more consistent with superficial phlebitis.Offered d-dimer vs watchful waiting w/ follow up precautions (swelling, redness, increased pain, chest pain, cough, shortness of breath) and opted for the latter. Advised on warm compress, tylenol and limited/ cautious use of aleve (hx of CAD s/p stenting 2014 and CKD III) only if absolutely needed. She has an incidental systolic murmur on exam. Vitals normal. Has seen cardiology in the past who noted same murmur. Has had echos done in the past. Nothing to do for this. No problem-specific Assessment & Plan notes found for this encounter. Patient Instructions Heating pads/ bags to the left leg. Tylenol as needed If taking aleve, use lowest dose and with a meal. Patient Education Thrombophlebitis Thrombophlebitis is a condition in which a blood clot forms in a vein. This can happen in your arms or legs, or in the area between your neck and groin (torso). When this condition happens in a vein that is close to the surface of the body (superficial thrombophlebitis), it is usually not serious.However, when the condition happens in a vein that is deep inside the body (deep vein thrombosis, DVT), it can cause serious problems. What are the causes? This condition may be caused by: ?? Damage to a vein. ?? Inflammation of the veins. ?? A condition that causes blood to clot more easily. ?? Reduced blood flow through the veins. What increases the risk? The following factors may make you more likely to develop this condition: ?? Having a condition that makes blood thicker or more likely to clot. ?? Having an infection. ?? Having major surgery. ?? Experiencing a traumatic injury or a broken bone. ?? Having a catheter in a vein (central line). ?? Having a condition in which valves in the veins do not work properly, causing blood to collect (pool) in the veins (chronic venous insufficiency). ?? An inactive (sedentary) lifestyle. ?? or having recently given . ?? Cancer. ?? Older age, especially being 60 or older. ?? Obesity. ?? Smoking. ?? Taking medicines that contain estrogen, such as control pills. ?? Having varicose veins. ?? Using drugs that are injected into the veins (intravenous, IV). What are the signs or symptoms? The main symptoms of this condition are: ?? Swelling and pain in an arm or leg. If the affected vein is in the leg, you may feel pain while standing or walking. ?? Warmth or redness in an arm or leg. Other symptoms include: ?? Low-grade fever. ?? Muscle aches. ?? A bulging vein (venous distension). In some cases, there are no symptoms. How is this diagnosed? This condition may be diagnosed based on: ?? Your symptoms and medical history. ?? A physical exam. ?? Tests, such as: ? Blood tests. ? A test that uses sound waves to make images (ultrasound). How is this treated? Treatment depends on how severe the condition is and which area of the body is affected. Treatment may include: ?? Applying a warm compress or heating pad to affected areas. ?? Wearing compression stockings to help prevent blood clots and reduce swelling in your legs. ?? Raising (elevating) the affected arm or leg above the level of your heart. ?? Medicines, such as: ? Anti-inflammatory medicines, such as ibuprofen. ? Blood thinners (anticoagulants), such as heparin. ? Antibiotic medicine, if you have an infection. ?? Removing an IV that may be causing the problem. In rare cases, surgery may be needed to: ?? Remove a damaged section of a vein. ?? Place a filter in a large vein to catch blood clots before they reach the lungs. Follow these instructions at home: Medicines ?? Take qmlf-gce-lguvonu and prescription medicines only as told by your health care provider. ?? If you were prescribed an antibiotic, take it as told by your health care provider. Do not stop using the antibiotic even if you feel better. Managing pain, stiffness, and swelling ?? If directed, put heat on the affected area as often as told by your health care provider. Use theheat source that your health care provider recommends, such as a moist heat pack or a heating pad. ? Place a towel between your skin and the heat source. ? Leave the heat on for 20-30 minutes. ? Remove the heat if your skin turns bright red. This is especially important if you are not able tofeel pain, heat, or cold. You may have a greater risk of getting burned. ?? Elevate the affected area above the level of your heart while you are sitting or lying down. Activity ?? Return to your normal activities as told by your health care provider. Ask your health care provider what activities are safe for you. ?? Avoid sitting or lying down for long periods. If possible, stand up and walk around regularly. If you are taking blood thinners: ?? Take your medicine exactly as told, at the same time every day. ?? Avoid activities that could cause injury or bruising, and follow instructions about how to prevent falls. ?? Wear a medical alert bracelet or carry a card that lists what medicines you take. General instructions ?? Drink enough fluid to keep your urine pale yellow. ?? Wear compression stockings as told by your health care provider. ?? Do not use any products that contain nicotine or tobacco, such as cigarettes and e-cigarettes. Ifyou need help quitting, ask your health care provider. ?? Keep all follow-up visits as told by your health care provider. This is important. Contact a health care provider if: ?? You miss a dose of your blood thinner, if applicable. ?? Your symptoms do not improve. ?? You have unusual bruising. ?? You have nausea, vomiting, or diarrhea that lasts for more than one day. Get help right away if: ?? You have any of these problems: ? New or worse pain, swelling, or redness in an arm or leg. ? Numbness or tingling in an arm or leg. ? Shortness of breath. ? Chest pain. ? Severe pain in your abdomen. ? Fast breathing. ? A fast or irregular heartbeat. ? Blood in your vomit, stool, or urine. ? A severe headache or confusion. ? A cut that does not stop bleeding. ?? You feel light-headed or dizzy. ?? You cough up blood. ?? You have a serious fall or accident, or you hit your head. These symptoms may represent a serious problem that is an emergency. Do not wait to see if the symptoms will go away. Get medical help right away. Call your local emergency services (911 in the [place] Do not drive yourself to the hospital. Summary ?? Thrombophlebitis is a condition in which a blood clot forms in a vein. This can happen in a vein close to the surface of the body or a vein deep inside the body. ?? This condition can cause serious problems when it happens in a vein deep inside the body (deep vein thrombosis, DVT). ?? The main symptom of this condition is swelling and pain around the affected vein. ?? Treatment may include warm compresses, anti-inflammatory medicines, or blood thinners. This information is not intended to replace advice given to you by your health care provider. Make sure you discuss any questions you have with your health care provider. Document Released: 07/29/2017 Document Revised: 07/29/2017 Document Reviewed: 07/29/2017 [employer] Interactive Patient Education ?? 2020 [employer]. Return if symptoms worsen or fail to improve. Note created using voice dictation software. BASE DEVELOPMENT PROJECT MANAGER documented in this encounter Plan of Treatment Not on filedocumented as of this encounter Goals Goal Patient Goal Associated Recent Patient-Stated? Author Type Problems Progress Routine Health General No change Peter Monzon (02/05/2021 Abbie Murray, 11:19 AM DATABASE DEVELOPMENT PROJECT MANAGER) RN Note: Formatting of this note is differe nt from the original. Routine Health Management Care Team Patient Care Team: Corrine Vazquez MD as PCP - General ([facility]) Yossi Potts, RN as Registered Nurse (Diabetes Education) Abbie Ramesh RN as Microfilm Mounter Future Scheduled Appointments No future appointments. Health [...] (02/05/2021 11:17 AM No Abbie Ramesh, RN DATABASE DEVELOPMENT PROJECT MANAGER) Note: Formatting of this note [...] as of this encounter Visit Diagnoses Diagnosis Phlebitis and thombophlb of superfic ves sels of l low extrem - Primary Systolic murmur Undiagnosed cardiac murmurs documented in this encounter Care Teams Ticketing Clerk Relationship Specialty Start Date End Date Corrine Vazquez MD PCP - General Family Medicine 07/07/19 08/19/[address] [place] [phone] documented as of this encounter
--- OUTSIDE RECORDS SUMMARY | 2021-09-05 00:11 | XMS_ITS | Encounter Summary ---
:1945 Author Organization [facility] Address [address] [place] [address] Care Team Providers Name Role Phone Lincoln Vazquez MD Primary Care Provider Reason for Visit Reason Comments Medicare Annual Wellness Visit Subsequent Encounter Details Date Type Department Care Team Description 01/13/2020 Clinical [place] [address] visit, subsequent [place], [place] [address] Social History Tobacco Use [...] More than 4 times per year 12/23/2018 sabianism services? Do you belong to any clubs [...] Time Taken Comments Blood Pressure 132/80 01/13/2020 2:10 PM SUPERVISOR TELEPHONE ANSWERING SERVICE Pulse 86 01/13/2020 2:10 PM SUPERVISOR TELEPHONE ANSWERING SERVICE Temperature 36.3 ??C (97.4 ??F) 01/13/2020 2:10 PM SUPERVISOR TELEPHONE ANSWERING SERVICE Respiratory Rate 14 01/13/2020 2:10 PM SUPERVISOR TELEPHONE ANSWERING SERVICE Oxygen Saturation 96% 01/13/2020 2:10 PM SUPERVISOR TELEPHONE ANSWERING SERVICE Inhaled Oxygen Concentration - - Weight 81.6 kg (180 lb) 01/13/2020 2:10 PM SUPERVISOR TELEPHONE ANSWERING SERVICE Height 160.3 cm (5' 3.11) 01/13/2020 2:10 PM SUPERVISOR TELEPHONE ANSWERING SERVICE Body Mass Index 31.77 01/13/2020 2:10 PM SUPERVISOR TELEPHONE ANSWERING SERVICE documented in this encounter Progress Notes Lana Knight LPN - 01/13/2020 2:40 PM CST Annual Wellness Visit CARE TEAM / RESOURCES: Patient Care Team: Corrine Vazquez MD as PCP - General (Family Medicine) JOSE DE JESUS Austin as Diabetes Management (Endocrinology) Yossi Potts, RN as Registered Nurse (Diabetes Education) Abbie Ramesh RN as Group Leader Wafer Polishing Eye Care: [facility] Dental Care: Dr. Caal [place] Pharmacy: [facility] [address] [address] Other: Visit Vitals BP 132/80 (BP Location: Left arm, Patient Position: Sitting) Pulse 86 Temp 36.3 ??C (97.4 ??F) (Temporal) Resp 14 Ht 1.603 m (5' 3.11) Wt 81.6 kg (180 lb) SpO2 96% BMI 31.77 kg/m?? Smoking Status Never Smoker BSA 1.91 m?? Allergies Allergen Reactions ??? Lisinopril Other (see comments) nightmares ??? Azathioprine ??? Azithromycin ??? Olmesartan ??? Statins Other (see comments) Intolerance to Statin Intolerance to Statin Outpatient Encounter Medications as of 01/13/2020 Medication Sig Dispense Refill ??? Abatacept (ORENCIA IV) Infuse into a venous catheter every 30 (thirty) days ??? Accu-Chek FastClix Lancets misc Use to test 3 times daily. 100 each 11 ??? ALPRAZolam (XANAX) 0.5 MG tablet TAKE ONE TABLET BY MOUTH EVERY 8 HOURS NEEDED FOR ANXIETY- MUST LAST 30 DAYS 15 tablet 2 ??? Calcium Carbonate (CALCIUM 600 PO) Take by mouth 1 (one) time each day ??? cholecalciferol, vitamin D3, 5,000 Units tablet tablet Total is 20,000 per week ??? ferrous sulfate 325 (65 Fe) MG tablet Take 1 tablet (325 mg total) by mouth 1 (one) time each day with breakfast 90 tablet 3 ??? glipiZIDE (GLUCOTROL XL) 10 MG 24 hr tablet Take ONE pill TWICE a day for diabetesDo not crush, chew, or split. 180 tablet 1 ??? glucose blood (Accu-Chek Alison Plus) test strip USE TO TEST BLOOD GLUCOSE 3 TIMES A DAY 300 each3 ??? glucose blood test strip Use as instructed to check blood glucose three times a day. 100 each 11 ??? insulin glargine (Basaglar KwikPen) 100 UNIT/ML injection Take 22 units once a day in the PM fordiabetes OR DIRECTED (Patient taking differently: Take 17 units once a day in the PM for diabetesOR DIRECTED) 15 mL 3 ??? leflunomide (ARAVA) 20 MG tablet Take 20 mg by mouth every other day ??? levothyroxine (SYNTHROID) 75 MCG tablet Take 1 tablet (75 mcg total) by mouth 1 (one) time each day 90 tablet 3 ??? metFORMIN XR (GLUCOPHATE-XR) 500 MG 24 hr tablet Take ONE tablet TWICE a day for diabetesDo not crush, chew, or split. 180 tablet 1 ??? Multiple Vitamins-Minerals (MULTIVITAMIN ADULT PO) Take by mouth Contains Zinc per Womens Volleyball Coach. ??? nitroglycerin (NITROSTAT) 0.[address] 0.4 mg under the tongue ??? pen needle, diabetic (1st Tier Unifine Pentips Plus) 31G X 5 MM misc USE TO INJECT INSULIN ONCE A DAY 100 each 3 ??? Polyvinyl Alcohol-Povidone (REFRESH OP) Administer 1 drop into affected eye(s) 3 (three) times aday Dry Eyes ??? UNABLE TO FIND Med Name: FISH OIL, ZINC, TUMERIC ??? ESTRACE VAGINAL 0.1 MG/GM vaginal cream ??? rosuvastatin (CRESTOR) 5 MG tablet Take 1/2 tab at night for cholesterol. (Patient not taking: Reported on 01/13/2020) 45 tablet 3 No facility-administered encounter medications on file as of 01/13/2020. Immunization History Administered Date(s) Administered ??? Flu Vaccine High Dose 65yrs and Older IM 11/23/2013, 11/22/2014, 11/29/2014, 12/01/2015, 12/10/2015, 12/02/2016, 01/18/2018, 01/17/2019 ??? Influenza (IM) Preservative Free 01/08/2009 ??? Influenza Split 12/31/2009, 11/22/2014 ??? Influenza TIV (IM) 12/17/2009 ??? Influenza, Unspecified 12/31/2009, 11/30/2010, 11/16/2012, 12/02/2013, 11/29/2014, 12/10/2015 ??? Pneumococcal Conjugate 13-Valent 06/21/2014 ??? Pneumococcal Polysaccharide 01/28/2008, 08/16/2019 ??? TD Preservative Free 08/16/2019 ??? Td 02/14/2010 ??? Tdap 02/14/2010 ??? Zoster 08/28/2015, 09/20/2015 Patient Active Problem List Diagnosis ??? Anemia ??? Benign paroxysmal positional vertigo ??? Cervicalgia ??? Chronic coronary artery disease ??? Gout ??? Hyperlipidemia ??? Other acid concentrator (current) drug therapy ??? Paresthesia of skin ??? Postmenopausal atrophic vaginitis ??? Postmenopausal bleeding ??? Postoperative urinary tract infection ??? Rheumatoid arthritis (HCC) ??? Subclinical hypothyroidism ??? Type 2 diabetes mellitus with other specified complication (HCC) ??? Edema ??? Essential hypertension ??? Stage 3 chronic kidney disease ??? Anemia ??? Chronic ischemic heart disease ??? Other osteoporosis ??? Pain of upper abdomen ??? Abnormal liver function test Past Medical History: Diagnosis Date ??? Anemia [...] ROTATOR CUFF REPAIR ??? WISDOM TOOTH EXTRACTION Social History Socioeconomic History ??? Marital status: Spouse name: None ??? Number of children: None ??? Years of education: None ??? Highest education level: None Occupational History ??? None Social Needs ??? Financial resource strain: Not hard at all ??? Food insecurity Worry: Never true Inability: Never true ??? Transportation needs Medical: No Non-medical: No Tobacco Use ??? Smoking status: Never Smoker ??? Smokeless tobacco: Never Used Substance and Sexual Activity ??? Alcohol use: No Frequency: Never ??? Drug use: No ??? Sexual activity: Never Partners: Male Lifestyle ??? Physical activity Days per week: 0 days Minutes per session: 0 min ??? Stress: To some extent Relationships ??? Social connections Talks on phone: More than three times a week Gets together: More than three times a week Attends sabianism service: More than 4 times per year Active member of club or organization: No Attends meetings of clubs or organizations: Never Relationship status: ??? Intimate partner violence Fear of current or ex partner: No Emotionally abused: No Physically abused: No Forced sexual activity: No Other Topics Concern ??? None Social History Narrative ??? None Pain Assessment Scored: 0-No pain and location: Utilization / Navigation of Health Care Systems: Does not overuse the Fast[facility], Acute Care, eVisits or Emergency Room. PHQ-9 mental health screening performed. Scored: 0 / 27 ERICK-7 anxiety screening performed. Scored: Mini-Cog test performed. Scored: 5 / 5 CAGE-AID test performed. BMI/weight management reviewed. BMI: Body mass index is 31.77 kg/m??. Declined referral to nutrition education for BMI greater than 30. Fall Risk Assessment performed. Scored: Tug time: Referral to Physical Therapy not applicable due to low fall risk. Colon Cancer Screening: Last done: 05/21/2018 Cologaurd completed Due: 05/21/2021 Breast Cancer Screening: Last done: The patient had this completed in [facility] two months ago. Will request records. Osteoporosis Screening: Last done: 07/29/2016 Prostate Cancer Screening: Last done: No results found for: PSA Hepatitis C Screening: No results found for: HEPCAB Glaucoma Screening: Preformed at outside facility AAA Screening: Not indicated Lung Cancer Screening: Not indicated Findings: The patient is up to date on her immunizations at this time. She could however benefit from a Shingrix vaccine. The patient did get a flu shot. The following referral(s) were created: None. What is an Annual Wellness Visit? Yearly appointment performed by another provider to create or update the personalized prevention plan. This plan helps prevent illness based on your current health and risk factors. ?? Medicare part B coverage the Annual Wellness Visit 100%. ?? Keep in mind that the annual wellness visit is not head to toe physical. ?? The service is similar to but separate from a one time a Welcome to Medicare Preventative Visit. The following information is regarding different screenings that will be discussed. Colon Cancer: ?? Age 50 and up (usually done until age 75) Breast Cancer: Medicare Part B (Medical Insurance) covers a Screening mammogram once every 12 months (11 full months must have passed since the last screening) ?? Women with Part B 40 or older are covered. Provider discretion beyond age 74 ?? Women with Part B between 35-39 can get one baseline mammogram Osteoporosis: Medicare Part B (Medical Insurance) covers this test once every 24 months for people who meet the criteria below: ?? A woman whose doctor determines both of these (based on her medical history and other findings):She's estrogen deficient AND She's at risk for osteoporosis ?? A person whose X-rays show possible osteoporosis, osteopenia, or vertebral fractures ?? A person taking prednisone or steroid-type drugs or is planning to begin this treatment ?? A person who has been diagnosed with primary hyperparathyroidism ?? A person who is being monitored to see if their osteoporosis drug therapy is working Prostate Cancer: Medicare Part B (Medical Insurance) covers: ?? Digital rectal exam: Once every 12 months ?? Prostate specific antigen (PSA) test: Once every 12 months ?? All men over 50 (beginning the day after your 50th birthday) with Part B are covered. Hepatitis C: Medicare covers one Hepatitis C screening test. Medicare also covers yearly repeat screening for certain people at high risk. ?? Those at high risk because they use or used illicit injection drugs. ?? Those who had a blood transfusion before 1991. ?? Those born between [id number]. Glaucoma: Medicare Part B (Medical Insurance) covers a glaucoma test once every 12 months for people at high risk for glaucoma. You're at high risk if one of these applies: ?? You have diabetes. ?? You have a family history of glaucoma. ?? You're and 50 or older. ?? You're and 65 or older. AAA: Medicare Part B (Medical Insurance) covers a one-time abdominal aortic aneurysm ultrasound for people who meet the criteria below: ?? You have a family history of abdominal aortic aneurysms. ?? You???re a man age 65 to 75 and have smoked at least 100 cigarettes in your lifetime. Lung Cancer: Medicare Part B (Medical Insurance) covers a lung cancer screening with Low Dose Computed Tomography(LDCT) once per year to those who meet ALL of these conditions: ?? They're 55-77. ?? They're asymptomatic (they don???t have signs or symptoms of lung cancer). ?? They're either a current smoker or have quit smoking within the last 15 years. ?? They have a tobacco smoking history of at least 30 ???pack years?? (an average of one pack a dayfor 30 years). RVISOR TELEPHONE ANSWERING SERVICE documented in this encounter Plan of Treatment Not on filedocumented as of this encounter Goals Goal Patient Goal Associated Recent Patient-Stated? Author Type Problems Progress Routine Health General No change No Peter Ramesh (02/05/2021 Abbie Murray, 11:19 AM SUPERVISOR TELEPHONE ANSWERING SERVICE) RN Note: Formatting of this note is differe nt from the original. Routine Health Management Care Team Patient Care Team: Corrine Vazquez MD as PCP - [facility] Yossi Potts, RN as Registered Nurse (Diabetes Education) Abbie Ramesh RN as Group Leader Wafer Polishing Future Scheduled Appointments No future appointments. Health Maintenance Health Maintenance Topic Date Due Urine Protein Screening 05/31/2020 Lipid Panel 09/05/2020 Glaucoma Screening 67+ Yr 12/25/2020 Ophthalmology Exam 12/25/2020 [facility] Annual Wellness 01/12/2021 Hemoglobin A1C 01/24/2021 Diabetic [...] (02/05/2021 11:17 AM No Abbie Ramesh, RN SUPERVISOR TELEPHONE ANSWERING SERVICE) Note: Formatting of this note is differe [...] as of this encounter Visit Diagnoses Diagnosis Medicare annual wellness visit, subseque nt documented in this encounter Care Teams Asphalt Tar And Gravel Roofer Relationship Specialty Start Date End Date Corrine Vazquez MD PCP - General Family Medicine 07/07/19 08/19/[address] [place] [address] documented as of this encounter
--- OUTSIDE RECORDS SUMMARY | 2021-09-05 00:11 | XMS_ITS | Encounter Summary ---
:1945 Author Organization [facility] Address [address] [place] [address] Care Team Providers Name Role Phone Lincoln Vazquez MD Primary Care Provider Reason for Referral Consultation (Routine) - Closed Specialty Diagnoses / Procedures Referred By Contact Refer red To Contact Family Medicine Diagnoses Enrolled in chronic care management Essential hypertension Type 2 diabetes mellitus with other specified complication, with long-term current use of insulin (HCC) Mixed hyperlipidemia Corrine Vazquez MD Care Coordination [address] [place], [place] [phone] Referral ID Status Reason Start Date Expiration Date Visits V isits Requested Authorized [id number] Closed Specialty 02/21/2020 03/18/2021 99 99 Services Required Scheduling Instructions Staff from this department will contact the patient to schedule an appointment. D CAPTAIN Encounter Details Date Type Department Care Team Description 02/23/2020 Orders Only SE Care Coordination Corrine Vazquez Enrolled in chronic care [facility] (Primary Dx[facility] [address] [place] [address] MD Lincoln Essential hypertension; [place] [address] Type 2 diabetes mellitus wit h other specified complication, with long-term current use of insulin (HCC); [phone] [place] [address] Social History Tobacco Use Types Packs/Day Years [...] as of this encounter Plan of Treatment Scheduled Referrals Name Type Priority Associated Diagnoses Order S [facility] Ambulatory referral Outpatient Routine Enrolled in chronic O rdered: to Care Coordination Referral care manage ment 02/23/2020 Essential hypert ension Type 2 diabetes mellitus with other specified complication, with long-term current use of insulin (HCC) Mixed hyperlipidemia documented as of this encounter Goals Goal Patient Goal Associated Recent Patient-Stated? Author Type Problems Progress Routine Health General No change No Peter Ramesh (02/05/2021 Abbie Murray, 11:19 AM GUARD CAPTAIN) RN Note: Formatting of this note is differe nt from the original. Routine Health Management Care Team Patient Care Team: Corrine Vazquez MD as PCP - [facility] Yossi Potts, RN as Registered Nurse (Diabetes Education) Abbie Ramesh, RN as Soaking Room Operator Future Scheduled Appointments No future appointments. Health Maintenance Health Maintenance Topic Date Due Urine Protein Screening 05/31/2020 Lipid Panel 09/05/2020 Glaucoma Screening 67+ Yr 12/25/2020 Ophthalmology Exam 12/25/2020 [facility] Annual Wellness 01/12/2021 Hemoglobin A1C 01/24/2021 Diabetic [...] (02/05/2021 11:17 AM No Abbie Ramesh, RN GUARD CAPTAIN) Note: Formatting of this note is differe [...] as of this encounter Visit Diagnoses Diagnosis Enrolled in chronic care management - Pr imary Essential hypertension Unspecified essential hypertension Type 2 diabetes mellitus with other spec ified complication, with long-term current use of insulin (HCC) Mixed hyperlipidemia documented in this encounter Care Teams Corridor Redevelopment Manager Relationship Specialty Start Date End Date Corrine Vazquez MD PCP - General Family Medicine 07/07/19 08/19/[address] [place] [address] documented as of this encounter
--- OUTSIDE RECORDS SUMMARY | 2021-09-05 00:11 | XMS_ITS | Encounter Summary ---
:1945 Author Organization [facility] Address [address] [place] [address] Care Team Providers Name Role Phone Lincoln Vazquez MD Primary Care Provider Encounter Details Date Type Department Care Team Description 11/25/2019 Orders Only SE Care Coordination Corrine Vazquez Type 2 diabetes [address] [facility] MD Lincoln [place] [address] specified complication, [place] with long-term current [place], [place] use of insu [place] ([facility]) [id number] (Primary Dx) Social History Tobacco Use Types [...] Progress Notes Abbie Ramesh RN - 11/25/2019 4:29 PM CDT Please refill lancet order. Thank you Corrine Vazquez MD - 11/25/2019 4:29 PM CDT I signed a DME order for Marcial. It did not print. Did it go to the pharmacy? Please check and let me know. Lana Knight LPN - 11/25/2019 4:29 PM CDT The lancets appeared to have went automatically. documented in this encounter Plan of Treatment Not on filedocumented as of this encounter Goals Goal Patient Goal Associated Recent Patient-Stated? Author Type Problems Progress Routine Health General No change No Domitila, Management (02/05/2021 Abbie Murray, 11:19 AM COMPO CONVEYOR OPERATOR) RN Note: Formatting of this note is differe nt from the original. Routine Health Management Care Team Patient Care Team: Corrine Vazquez MD as PCP - General ([facility]) Yossi Potts, RN as Registered Nurse (Diabetes Education) Abbie Ramesh RN as Fisher Sponge Hooking Future Scheduled Appointments No future appointments. Health [...] (02/05/2021 11:17 AM No Abbie Ramesh RN COMPO CONVEYOR OPERATOR) Note: Formatting of this note is [...] Primary documented in this encounter Care Teams Supervisor Inspection Room Relationship Specialty Start Date End Date Corrine Vazquez MD PCP - General Family Medicine 07/07/19 08/19/[address] [place] [address] documented as of this encounter
--- OUTSIDE RECORDS SUMMARY | 2021-09-05 00:11 | XMS_ITS | Encounter Summary ---
:1945 Author Organization [facility] Address [address] [place] [address] Care Team Providers Name Role Phone Lincoln Vazquez MD Primary Care Provider Reason for Visit Reason Onset Date Comments RX 11/25/2019 Encounter Details Date Type Department Care Team Description 11/25/2019 Telephone [place] Corrine Vazquez MD RX [address] [place], [place] [address] [place], [place] [phone] (Wo rk) Social History Tobacco Use Types [...] More than 4 times per year 12/23/2018 taoist services? Do you belong to any clubs [...] Telephone Encounter - Lana Knight LPN - 11/29/2019 2:23 PM CDT Benedict or Alyssa Will call us back from the [facility]. Telephone Encounter - Margareth Sanchez RN - 11/28/2019 2:58 PM CDT No answer. Telephone Encounter - Margareth Sanchez RN - 11/28/2019 10:58 AM CDT [facility] Telephone Encounter - Margareth Sanchez RN - 11/28/2019 8:42 AM CDT They open at 9am. Phone number is [phone]. Telephone Encounter - Phoebe Donohue - 11/25/2019 2:02 PM CDT Patient is requesting RX for accu check fast clix be sent to [place] pharmacy. Fax number is [phone]. documented in this encounter Plan of Treatment Not on filedocumented as of this encounter Goals Goal Patient Goal Associated Recent Patient-Stated? Author Type Problems Progress Routine Health General No change Peter Monzon (02/05/2021 Abbie Murray, 11:19 AM SOPHIA) RN Note: Formatting of this note is differe nt from the original. Routine Health Management Care Team Patient Care Team: Corrine Vazquez MD as PCP - General ([facility] Medicine) Yossi Potts, RN as Registered Nurse (Diabetes Education) Abbie Ramesh RN as Oil And Gas Superintendent Future Scheduled Appointments No future appointments. Health [...] (02/05/2021 11:17 AM No Abbie Ramesh, RN ENERGY MANAGER) Note: Formatting of this note is [...] on filedocumented in this encounter Care Teams Customer Resource Specialist Relationship Specialty Start Date End Date Corrine Vazquez MD PCP - General Family Medicine 07/07/19 08/19/21 [address] [place] [address] documented as of this encounter
--- OUTSIDE RECORDS SUMMARY | 2021-09-05 00:11 | XMS_ITS | Encounter Summary ---
:1945 Author Organization [facility] Address [address] [place] [address] Care Team Providers Name Role Phone Jaymie Vazquez MD Primary Care Provider Reason for Visit Consultation (Routine) - Closed Specialty Diagnoses / Procedures Referred By Contact Refer red To Contact Diagnoses Medicare annual wellness visit, initial Corrine Vazquez MD Care Coordination [address] [place], [place] [phone] Referral ID Status Reason Start Date Expiration Date Visits V isits Requested Authorized [id number] Closed Specialty 12/23/2018 99 99 Services Required Encounter Details Date Type Department Care Team Description 12/30/2019 Patient Outreach SE Care Coordination Abbie Ramesh Counseling and coordination of care (Primary Dx); [address] [facility] Terri RN Type 2 diabetes mellitus with other spec ified complication, with long-term current use of insulin (HCC); [place] [address] [address] Mixed hyperlipidemia; [phone] [facility] Obesity (BMI 30.0-34.9) [place] [address] Social History Tobacco Use Types [...] or relatives? How often do you attend anabaptism or More than 4 times per year 12/23/2018 christian services? Do you belong to any clubs or No 12/23/2018 organizations such as anabaptism groups, unions, [employer] or athletic groups, or school groups? [...] encounter Progress Notes Abbie Ramesh RN - 12/30/2019 8:40 AM CST Continued Care Plan - Care Coordination Discussion Date: 12/30/2019 10:13 AM Completed CCM monthly follow up with Marcial She continues to work towards previously set goals. Today's discussion: ??? Reviewed/Updated Care Management Goals: o Diabetes - Has taken a few readings in the afternoon/evening. All running over 200. All AM readings running 83-122. - Discussed with online publisher in regards to starting dapagliflozin. She is unsure about starting a new medication at this time. Would like to discuss with PCP prior to starting. Plans to make appt after the holidays. - Has been having nightmares. Stopped taking Crestor over the last couple of days and no more nightmares. She will continue to hold Crestor through the weekend to see if things continue to improve. FYI o Routine Health Follow-up plan: ?? Monthly calls or sooner if needed ?? Reinforced 08/09 nurse line Items for Provider to address: ??? Crestor on hold per patient Goals Today 11/25/19 11/10/19 08/26/19 07/19/19 General ??? Diabetes Management On track Improving Improving Diabetes Management Managed by (PCP or Endocrinology) Dr. 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 Health Maintenance Health Maintenance Topic Date Due ??? Diabetic Foot Exam 07/16/2019 ??? Glaucoma Screening 67+ Yr 12/18/2019 ??? Fall Risk Performed 12/24/2019 ??? [facility] Annual Wellness 12/24/2019 ??? Mammogram 11/26/2019 ??? Hemoglobin A1C 03/16/2020 ??? Urine Protein Screening 05/31/2020 ??? Lipid Panel 09/05/2020 ??? Ophthalmology Exam 12/25/2020 ??? Colorectal Cancer Screening: Colonoscopy 05/21/2021 ??? [facility] Pneumococcal Vaccine: 65+ Years Completed ? ? [facility] Pneumococcal Vaccine: <64 Aged Out ??? HPV Vaccines Aged Out Notes: 1 Progress evaluated against: Health Maintenance UP OPERATOR HELPER Corrine Vazquez MD - 12/30/2019 8:40 AM CST Heena jaymie UP OPERATOR HELPER documented in this encounter Plan of Treatment Not on filedocumented as of this encounter Goals Goal Patient Goal Associated Recent Patient-Stated? Author Type Problems Progress Routine Health General No change No Domitila, Management (02/05/2021 Abbie Murray, 11:19 AM HEAD UP OPERATOR HELPER) RN Note: Formatting of this note is differe nt from the original. Routine Health Management Care Team Patient Care Team: Corrine Vazquez MD as PCP - General ([facility] Medicine) Yossi Potts RN as Registered Nurse (Diabetes Education) Abbie Ramesh RN as Financial Aid Manager Future Scheduled Appointments No future appointments. [...] (02/05/2021 11:17 AM No Abbie Ramesh, RN HEAD UP OPERATOR HELPER) Note: Formatting of this note is differe [...] current use of insulin (HCC) Mixed hyperlipidemia Obesity (BMI 30.0-34.9) documented in this encounter Care Teams Cream Gatherer Relationship Specialty Start Date End Date Corrine Vazquez MD PCP - General Family Medicine 07/07/19 08/19/[address] [place] [address] documented as of this encounter
--- OUTSIDE RECORDS SUMMARY | 2021-09-05 00:11 | XMS_ITS | Encounter Summary ---
:1945 Author Organization [facility] Address [address] [place] [address] Care Team Providers Name Role Phone [place] Vazquez MD Primary Care Provider Reason for Visit Reason Comments Diabetes Encounter Details Date Type Department Care Team Description 10/28/2019 Office Visit [place] Corrine Vazquez Type 2 diabetes mellitus wit h other specified complication, with long-term current use of insulin (HCC) (Primary Dx); [address] MD [place] Mixed hyperlipidemia; ABEBA [place] [phone] Anemia, unspecified type; [phone] [place] Type 2 diabetes mellitus with other spec ified complication, without long-term current use of insulin (HCC); [place] Hypothyroid ism, unspecified type [phone] Social History Tobacco Use Types Packs/Day Years [...] More than 4 times per year 12/23/2018 restoration services? Do you belong to any clubs [...] Sign Reading Time Taken Comments Blood Pressure 120/56 10/28/2019 8:09 AM CDT Pulse 84 10/28/2019 8:09 AM CDT Temperature 36.4 ??C (97.5 ??F) 10/28/2019 8:09 AM CDT Respiratory Rate 16 10/28/2019 8:09 AM CDT Oxygen Saturation 98% 10/28/2019 8:09 AM CDT Inhaled Oxygen Concentration - - Weight 81.8 kg (180 lb 5.4 oz) 10/28/2019 8:09 AM CDT Height 160.3 cm (5' 3.11) 10/28/2019 8:09 AM CDT Body Mass Index 31.83 10/28/2019 8:09 AM CDT documented in this encounter Progress Notes Corrine Vazquez MD - 10/28/2019 8:00 AM CDT Estab Patient Visit Subjective Patient ID: Marcial Adams is a 74 y.o. female. HPI the patient is here today for medication review renewal of medications and any laboratory test that would be needed. The patient is our 74-year-old individual who has been seeing [facility] endocrinology department we are closer for her to come to and she will be coming to us at this time for diabetic management and other medical issues as needed. Certainly we will consult the endocrinology department if we have questions or any particular issues. Just for review the following insert history SMOKING no ALCOHOL no ALLERGIES are listed Current MEDICATIONS include the following Orencia intravenous once every 30 days this medications prescribed by her plaster mold maker Xanax 0.5 mg tablet she takes just a small amount couple times a month Calcium and vitamin D supplements Ferrous sulfate 325 once daily Glipizide extended release 10 mg 1 twice daily Basil Angelic insulin 22 units daily Arava 20 mg tablet daily prescribed by her plaster mold maker Levothyroxine 75 mcg daily Crestor 5 mg half a tablet daily We added Metformin extended release 500 mg 1 twice daily Patient previously was on metformin but because of an elevated creatinine which was not too high at 1.4 but is somewhat decreased GFR she was taken off the medication. However it is actually okay to continue metformin and tell her GFR gets below 30 or creatinine rises closer to 2 so this is the simplest way at this time for us to initiate management of her A1c which is currently 8.3. She was previously on a medication called Tradjenta but this is no longer covered for her. She did not want to start the medications Victoza Ozempic or Trulicity because of concerns for thyroid issues because she has a family history not of thyroid cancer just thyroid issues and she declinedtheir use. However another interested in medication we could consider would be farXiga which if this is coveredwould be a good medication for her. Another possibility course would be use of rapid acting insulin but will try these others first. PAST SURGICAL HISTORY includes the following Appendectomy C-sections Hernia surgery Right shoulder surgery 10 years ago cardiac stent was placed no further problems with cardiac issues SOCIAL HISTORY she has been for 55 years there are 2 children 5 grandchildren and 3 great-grandchildren FAMILY HISTORY her mother at age 51 from breast cancer her father age 68 from lung cancer 2 sisters and I believe 1 brother who from cerebral aneurysm The patient at this time wanting to get her medications renewed she is not due for any laboratory testing at this time but she did want to get a little better control of her blood sugars and so we added to her medication list Metformin 500 1 twice a day and the extended release form and will have hercome back in January for her next A1c and see how she is doing. We will also remeasure her creatinine to make sure it does not go up as she tolerates the Metformin we may consider going higher but possibly 10 we may consider at that time potential use of far [employer] as this medication has benefits for heart decrease risk for strokes and so forth. Review of Systems Objective Physical Exam Assessment/Plan Diagnoses and all orders for this visit: Type 2 diabetes mellitus with other specified complication, with long-term current use of insulin (HCC) - metFORMIN XR (GLUCOPHATE-XR) 500 MG 24 hr tablet; Take ONE tablet TWICE a day for diabetesDo not crush, chew, or split. - glucose blood (Accu-Chek Alison Plus) test strip; USE TO TEST BLOOD GLUCOSE 3 TIMES A DAY - glipiZIDE (GLUCOTROL XL) 10 MG 24 hr tablet; Take ONE pill TWICE a day for diabetesDo not crush, chew, or split. - rosuvastatin (CRESTOR) 5 MG tablet; Take 1/2 tab at night for cholesterol. Mixed hyperlipidemia - rosuvastatin (CRESTOR) 5 MG tablet; Take 1/2 tab at night for cholesterol. Anemia, unspecified type - ferrous sulfate 325 (65 Fe) MG tablet; Take 1 tablet (325 mg total) by mouth 1 (one) time eachday with breakfast Type 2 diabetes mellitus with other specified complication, without long-term current use of insulin(HCC) - insulin glargine (Basaglar KwikPen) 100 UNIT/ML injection; Take 22 units once a day in the PM for diabetes OR DIRECTED - pen needle, diabetic (1st Tier Unifine Pentips Plus) 31G X 5 MM misc; USE TO INJECT INSULIN ONCE A DAY Hypothyroidism, unspecified type - levothyroxine (SYNTHROID) 75 MCG tablet; Take 1 tablet (75 mcg total) by mouth 1 (one) time each day The overall assessment is Insulin-dependent diabetes mellitus the plan at this time is as stated which has been addition of metformin 501 twice a day and recheck her A1c in kidney functions in 3 months time. Consult time was 25 minutes and all 25 minutes was spent in review of her history review over chart review of medications laboratory test and discussion regarding treatment of diabetes. documented in this encounter Plan of Treatment Not on filedocumented as of this encounter Goals Goal Patient Goal Associated Recent Patient-Stated? Author Type Problems Progress Routine Health General No change No Domitila, Management (02/05/2021 Abbie Murray, 11:19 AM SHOP MECHANIC HELPER) RN Note: Formatting of this note is differe nt from the original. Routine Health Management Care Team Patient Care Team: Corrine Vazquez MD as PCP - [facility] Yossi Potts, RN as Registered Nurse (Diabetes Education) Abbie Ramesh RN as Art Director Future Scheduled Appointments No future appointments. [...] (02/05/2021 11:17 AM No Abbie Ramesh RN SHOP MECHANIC HELPER) Note: Formatting of this note is [...] documented as of this encounter Results (ABNORMAL) Basic metabolic panel (03/16/2020 10:17 AM [facility]) Analysis Performed At Patho logist Time Signature Sodium 138 135 - 145 03/16/2020 [facility] mEq/L 6:25 PM [facility] Potassium 4.1 3.5 - 5.1 03/16/2020 [facility] mEq/L 6:25 PM [facility] Chloride 104 98 - 107 03/16/2020 [facility] mEq/L 6:25 PM [facility] CO2 26 22 - 29 03/16/2020 [facility] mmol/L 6:25 PM [facility] Creatinine 1.2 0.4 - 1.2 03/16/2020 [facility] mg/dL 6:25 PM [facility] BUN 27 (H) 5 - 25 03/16/2020 [facility] mg/dL 6:25 PM [facility] Glucose 154 (H) 70 - 100 03/16/2020 [facility] mg/dL 6:25 PM [facility] Calcium, 10.1 8.4 - 10.2 03/16/2020 [facility] Total,S mg/dL 6:25 PM [facility] Fasting? No 03/16/2020 [facility] 10:21 AM [facility] Specimen Anatomical Collection Method Collection Time Receive d Time (Source) Location / / Volume Laterality Blood 03/16/2020 10:17 03/16/2020 AM SHOP MECHAN[facility] HELPER 5:59 PM SHOP MECHANIC HELPER D. [place] Vazquez MD LAB BLOOD ORDERABLES Performing Organization Address City/State/ZIP Code Phon e Number [facility] [address] [place] [address] [facility] [address] [place] [id number] LABORATORY (ABNORMAL) Hemoglobin A1c (03/16/2020 10:17 AM [facility]) Analysis Performed At Patho logist Time Signature Hemoglobin A1C 8.5 (H) 4.0 - 5.6 03/16/2020 [facility] % A1C 6:26 PM [facility] Comment: Reference Range 4.0-5.6% is [...] Volume Laterality Blood 03/16/2020 10:17 03/16/2020 AM SHOP MECHANIC HELPER 5:59 PM SHOP MECHANIC HELPER Authorizing Provider Result Herbert Vazquez MD LAB BLOOD ORDERABLES Performing Organization Address City/State/ZIP Code Phon e Number [facility] [address] [place] [address] documented in this encounter Visit Diagnoses Diagnosis Type 2 diabetes mellitus with other spec ified complication, with long-term current use of insulin (HCC) - Primary Mixed hyperlipidemia Anemia, unspecified type Type 2 diabetes mellitus with other spec ified complication, without long-term current use of insulin (HCC) Hypothyroidism, unspecified type documented in this encounter Care Teams Network Infrastructure Architect Relationship Specialty Start Date End Date Corrine Vazquez MD PCP - General Family Medicine 07/07/19 08/19/21 [address] [facility] [address] [place] [address] documented as of this encounter
--- OUTSIDE RECORDS SUMMARY | 2021-09-05 00:11 | XMS_ITS | Encounter Summary ---
:1945 Author Organization [facility] Address [address] [place] [address] Care Team Providers Name Role Phone Lincoln [...] Vazquez MD Care Coordination [address] [facility] [address] [place], [place] [phone] Referral ID Status Reason Start Date Expiration Date Visits V isits Requested Authorized [id number] Closed Specialty 02/21/2020 03/18/2021 99 99 Services Required Encounter Details Date Type Department Care Team Description 02/21/2020 Patient Outreach SE Care Coordination Abbie Ramesh Counseling and coordination of care (Primary Dx); [address] [place] [address] ERA Murray Type 2 diabetes mellitus with other spec ified complication, with long-term current use of insulin (HCC); [place] [address] [address] [facility] Essential hypertension [phone] [place] [address] Social History Tobacco Use Types [...] More than 4 times per year 12/23/2018 taoism services? Do you belong to any clubs or No 12/23/2018 organizations such as mu-ism groups, unions, fraHoodinn or athletic groups, or school groups? How [...] encounter Progress Notes Abbie Ramesh RN - 02/21/2020 10:00 AM CST Continued Care Plan - Care Coordination Discussion Date: 02/21/2020 11:55 AM Completed CCM monthly follow up with Marcial She continues to work towards previously set goals. Today's discussion: ??? Reviewed/Updated Care Management Goals: o Diabetes - Just switched to taking insulin in the AM instead of PM. AM blood sugar was 135. Encourage night time snack to help prevent morning lows. She is hesitant to snack at night. Discussed choosing healthysnacks with protein. She states she will try. o Routine Health ??? Has had some tenderness in left leg/calf area for the last couple days. Warm to touch. Denies redness, shortness of breath, or chest pain. Does have varicose veins on legs. Consulted with PCP who advised for patient to come into clinic to be evaluated. Set up appt for this afternoon. Follow-up plan: ?? Monthly calls or sooner if needed ?? Reinforced 08/09 nurse line Items for Provider to address: ??? none Goals Today 12/30/19 11/25/19 11/10/19 08/26/19 General ??? Diabetes Management On track On track Improving Improving Diabetes Management Managed by (PCP or Endocrinology) Dr. 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) Diabetic labs: Hemoglobin A1C (goal: less than 8.0) LDL (goal: less than 100) Creatinine Urine-Micro albumin / Protein Lab Results Component Value Date HGBA1C 8.3 (H) 09/06/2019 Lab Results Component Value Date LDLCALC 99 09/06/2019 CREATININE 1.3 (H) 01/25/2020 Recent Blood Pressure (goal: less than 140/90) BP Readings from Last 1 Encounters: 01/13/20 132/80 Diabetic Eye Exam (yearly) Last: 12/17/18 Diabetic [...] Management On track On track On track Improving1 On track1 Routine Health Management Care Team Patient Care Team: Corrine Vazquez MD as PCP - General (Family Medicine) JOSE DE JESUS Austin as Diabetes Management (Endocrinology) Yossi Potts, RN as Registered Nurse (Diabetes Education) Abbie Ramesh RN as Scuba Diving Teacher Future Scheduled Appointments Future Appointments Date Time Provider Department Center 02/21/2020 2:00 PM Antonio Madsen MD [place] Health Maintenance Health Maintenance Topic Date Due ??? Diabetic Foot Exam 07/16/2019 ??? Mammogram 11/26/2019 ??? Glaucoma Screening 67+ Yr 12/18/2019 ??? Hemoglobin A1C 03/16/2020 ??? Urine Protein Screening 05/31/2020 ??? Lipid Panel 09/05/2020 ??? Ophthalmology Exam 12/25/2020 ??? Fall Risk Performed 01/12/2021 ??? [facility]ness 01/12/2021 ??? Colorectal Cancer Screening: Colonoscopy 05/21/2021 ??? [facility] Pneumococcal Vaccine: 65+ Years Completed ? ? [facility] Pneumococcal Vaccine: <64 Aged Out ??? HPV Vaccines Aged Out Notes: 1 Progress evaluated against: Health Maintenance NOMY TEACHER Abbie Ramesh RN - 02/21/2020 10:00 AM CST Care Plan - Care Coordination Contact Date: 02/22/2020 1:53 PM Marcial calls in to discuss her office visit yesterday. Clarified questions and reminded her to watchclosely and be re-evalulated if she does not see improvement or symptoms worsen. Blood sugar was 183 this AM. Higher than she has ever seen it. She will continue to take her insulinin the morning and document blood sugar readings. NOMY TEACHER documented in this encounter Plan of Treatment Scheduled Referrals Name Type Priority Associated Diagnoses Order [facility] Ambulatory referral Outpatient Routine Enrolled in chronic [...] Domitila Management (02/05/2021 Abbie Murray, 11:19 AM TAXONOMY TEACHER) RN Note: Formatting of this note is differe nt from the original. Routine Health Management Care Team Patient Care Team: Corrine Vazquez MD as PCP - General ([facility] Medicine) Yossi Potts, RN as Registered Nurse (Diabetes Education) Abbie Ramesh RN as Scuba Diving Teacher Future Scheduled Appointments No future appointments. [...] (02/05/2021 11:17 AM No Abbie Ramesh RN TAXONOMY TEACHER) Note: Formatting of this note is differe [...] hypertension documented in this encounter Care Teams Senior Clinical Project Manager Relationship Specialty Start Date End Date Corrine Vazquez MD PCP - General Family Medicine 07/07/19 08/19/[address] [place] [address] documented as of this encounter
--- OUTSIDE RECORDS SUMMARY | 2021-09-05 00:11 | XMS_ITS | Encounter Summary ---
:1945 Author Organization [facility] Address [address] [place] [address] Care Team Providers Name Role Phone [place] Vazquez MD Primary Care Provider Encounter Details Date Type Department Care Team Description 11/28/2019 Orders Only [place] Corrine Vazquez MD [address] [place], [place] [address] [place], [place] [phone] (Wo rk) Social History Tobacco Use Types [...] More than 4 times per year 12/23/2018 synagogue services? Do you belong to any clubs [...] Domitila, Management (02/05/2021 Abbie Murray, 11:19 AM ESTIMATING MANAGER) RN Note: Formatting of this note is differe nt from the original. Routine Health Management Care Team Patient Care Team: Corrine Vazquez MD as PCP - General ([facility] Medicine) Yossi Potts, RN as Registered Nurse (Diabetes Education) Abbie Ramesh, ERA as Photogrammetric Technician Future Scheduled Appointments No future appointments. [...] No change (02/05/2021 11:17 AM No Abbie Ramseh, RN ESTIMATING MANAGER) Note: Formatting of this note is [...] on filedocumented in this encounter Care Teams Sample Processor Relationship Specialty Start Date End Date Corrine Vazquez MD PCP - General Family Medicine 07/07/19 08/19/[address] [place] [address] documented as of this encounter
--- OUTSIDE RECORDS SUMMARY | 2021-09-05 00:11 | XMS_ITS | Encounter Summary ---
:1945 Author Organization [facility] Address [address] [place] [address] Care Team Providers Name Role Phone Lincoln Vazquez MD Primary Care Provider Reason for Referral Consultation (Routine) - Closed Specialty Diagnoses / Procedures Referred By Contact Refer red To Contact Diagnoses Osteoporosis screening Corrine Vazquez MD [facility] [address] [place] [phone] Referral ID Status Reason Start Date Expiration Date Visits Requ ested Visits Authorized [id number] Closed 03/17/2020 03/17/2021 1 1 ON LIBRARIAN Reason for Visit Reason Comments Diabetes Encounter Details Date Type Department Care Team Description 03/16/2020 Office Visit AdelCorrine Jara Osteoporosis screening (Prim lara Dx); [address] MD [place] Type 2 diabetes mellitus with other spec ified complication, with long-term current use of insulin ([facility]); [place], [place] [address] [address] Essential hypertension; [phone] [facility] Hypothyroidism, unspecified type; [place], [place] Anxiety; [phone] Type 2 diabetes mellitus with other spec ified complication, without long-term current use of insulin ([facility]) Social History Tobacco Use Types Packs/Day Years [...] 12/23/2018 organizations such as temple groups, unions, fraTwinklr or athletic groups, or school groups? How [...] Sign Reading Time Taken Comments Blood Pressure 138/76 03/16/2020 9:09 AM PRISON LIBRARIAN Pulse 88 03/16/2020 9:09 AM PRISON LIBRARIAN Temperature 35.9 ??C (96.7 ??F) 03/16/2020 9:09 AM PRISON LIBRARIAN Respiratory Rate 16 03/16/2020 9:09 AM PRISON LIBRARIAN Oxygen Saturation 98% 03/16/2020 9:09 AM PRISON LIBRARIAN Inhaled Oxygen Concentration - - Weight 82.1 kg (181 lb) 03/16/2020 9:09 AM PRISON LIBRARIAN Height 160.3 cm (5' 3.11) 03/16/2020 9:09 AM PRISON LIBRARIAN Body Mass Index 31.95 03/16/2020 9:09 AM PRISON LIBRARIAN documented in this encounter Progress Notes Corrine Vazquez MD - 03/16/2020 9:20 AM CST Estab Patient Visit Subjective Patient ID: Marcial Adams is a 74 y.o. female. HPI the patient is here today for diabetic review medication review questions to be answered. FIRST we discussed her diabetes and diabetic control. The patient is our a 74-year-old individual has been diabetic for more than 5 years. In the last year her A1c's have averaged between 8.0 up to her current value of 8.5. She has had some problems with low sugars which she gets concerned about and so we have been a little bit cautious in her adjustments. Currently she is taking her glipizide 10 mg extended release once a day in the morning Currently she was supposed to be taking her extended release Metformin 2 of the 500s in the morning and 1 in the evening. However she had cut back to just taking 1 in the morning along with 1 in the evening. She did have some loose stools with this. However I have requested that she go back to taking 2 in the morning and 1 in the evening she could take some additional Metamucil twice a day and I have explained to her that she will probably get used to the diarrhea and it should get better over time. Her Basaglar insulin was at a high dose of around 22 units or so but because of some low sugars in the morning time we switched her to taking in the morning time instead of the nighttime and she decreased her dose down to 15 units. However with her current A1c coming back to 8.5 we have asked her to slowly increase her Basaglar up to 20 units/day. The patient states that her morning blood sugars average between 110 up to 130 and her evening sugars are usually greater than 180 up to 200+ Therefore her current diabetic management will include the following GLUCOTROL extended release 10 mg in the morning we will not increase that further because of potential for hypoglycemia METFORMIN extended release 500 mg tablet 2 in the morning 1 in the EVENING BASALGAR insulin increase up to 20 units/day. We will recheck her A1c in about 6 months if she has not reached her goal of being under 8 will thencontinue to increase her long-acting insulin. SECOND patient had her mammogram in [place] we do not have records on her chart but she said it was normal and done November 2019. THIRD the patient needed her alprazolam updated. FOURTH her blood pressures though not bad have been consistently upper 130s in the 140s she is not on any blood pressure medications at this time we will start her on Norvasc 5 mg tablet daily. She has had reactions to both THERON inhibitors and ARB therapy and we will not use diuretics at this time unless she starts getting fluid retention. FIFTH she last had a bone mineral density in 2016 and it did show that she had some osteopenia and we are going to repeat her BMD test at this time. SIXTH the patient has now been tried on all of the statin medications except for Mevacor. She has consistently had side effects in the form of nightmares to the statins and she does not wish to be started on any further cholesterol medications at this time. Fortunately her cholesterol is not too bad with a total of 180 with triglycerides of 230 her HDL: 37and her LDL cholesterol 99. FOOT EXAM we did do a foot exam today and she has good sensation in all 12 points checked with a monofilament line no significant calluses color is good sensations good dorsalis pedis pulses are present. COMMUNITY MEASURES OF DIABETIC CONTROL Takes a baby aspirin 1/day A1c is greater than 8 currently at 8.5 Blood pressures adequate but could be better controlled and are being addressed at this time Does not use nicotine products Intolerant of statin medications Review of Systems Objective Physical Exam Assessment/Plan Diagnoses and all orders for this visit: Type 2 diabetes mellitus with other specified complication, with long-term current use of insulin ([facility]) - glucose blood test strip; Use as instructed: CONTOUR NEXT TEST STRIP, three times a day to check blood sugar. HgbA1c: 8.3 09/06/2019 Essential hypertension - amLODIPine (Norvasc) 5 MG tablet; Take 1/2 tab a day for the first ten days then ONE tab dailyfor blood pressure Hypothyroidism, unspecified type - TSH; Future Anxiety - ALPRAZolam (XANAX) 0.5 MG tablet; TAKE ONE TABLET BY MOUTH EVERY 8 HOURS NEEDED FOR ANXIETY- MUST LAST 30 DAYS The overall assessment is Diabetes type 2 with a current A1c of greater than 8. Hypertension essential Hypothyroidism under good control And the plan at this time is as stated in the body of this dictation Consult time was 20 minutes and all 20 minutes was spent in review with the patient today of her diabetes medications diabetic management personal goals and changes of medication and coordination of cares. ON LIBRARIAN documented in this encounter Plan of Treatment Scheduled Referrals Name Type Priority Associated Diagnoses Order S chedule Ambulatory External Outpatient Referral Routine Osteoporosis O rdered: Referral screening 03/17/2020 documented as of this encounter Goals Goal Patient Goal Associated Recent Patient-Stated? Author Type Problems Progress Routine Health General No change Hailee Ramesh Management (02/05/2021 Abbie Murray, 11:19 AM PRISON LIBRARIAN) RN Note: Formatting of this note is differe nt from the original. Routine Health Management Care Team Patient Care Team: Corrine Vazquez MD as PCP - General ([facility]) Yossi Potts, RN as Registered Nurse (Diabetes Education) Abbie Ramesh, RN as Press Puller Future Scheduled Appointments No future appointments. [...] (02/05/2021 11:17 AM No Abbie Ramesh, RN PRISON LIBRARIAN) Note: Formatting of this note is differe [...] daily documented as of this encounter Results TSH (03/16/2020 10:17 AM PRISON LIBRARIAN) P athologist Signature TSH, Sensitive 1.59 0.46 - 03/16/2020 IBIS ROSARIO L 4.68 mIU/L 6:59 PM [facility] Comment: The results from this [...] Volume Laterality Blood 03/16/2020 10:17 03/16/2020 AM PRISON LIBRARIAN 5:59 PM PRISON LIBRARIAN D. Lincoln Vazquez MD LAB BLOOD ORDERABLES Performing Organization Address City/State/ZIP Code Phon e Number [facility] [address] [place] [address] documented in this encounter Visit Diagnoses Diagnosis Osteoporosis screening - Primary Special screening for osteoporosis Type 2 diabetes mellitus with other spec ified complication, with long-term current use of insulin (HCC) Essential hypertension Unspecified essential hypertension Hypothyroidism, unspecified type Anxiety Anxiety state, unspecified Type 2 diabetes mellitus with other spec ified complication, without long-term current use of insulin (HCC) documented in this encounter Care Teams Braiding Machine Tender Relationship Specialty Start Date End Date Corrine Vazquez MD PCP - General Family Medicine 07/07/19 08/19/[address] [place] [address] documented as of this encounter
--- OUTSIDE RECORDS SUMMARY | 2021-09-05 00:11 | XMS_ITS | Encounter Summary ---
:1945 Author Organization [facility] Address [address] [place] [address] Care Team Providers Name Role Phone Lincoln Vazquez MD Primary Care Provider Reason for Visit Reason Onset Date Comments Med Refill 12/28/2019 Encounter Details Date Type Department Care Team Description 12/28/2019 Telephone [place] Corrine Vazquez MD Med Refill [address] [place], [place] [address] [place], [place] [phone] (Wo rk) Social History Tobacco Use Types [...] or relatives? How often do you attend mormon or More than 4 times per year 12/23/2018 gnosticism services? Do you belong to any clubs or No 12/23/2018 organizations such as mormon groups, unions, fraternal or athletic groups, or [...] this encounter Miscellaneous Notes Telephone Encounter - Sherice Sanchez - 12/28/2019 2:34 PM CST RX faxed to [facility] [phone] REPORTER Telephone Encounter - Margareth Sanchez RN - 12/28/2019 2:09 PM CST Please fax Rx to [facility] [address] REPORTER Telephone Encounter - Margareth Sanchez RN - 12/28/2019 8:36 AM CST Please review rx request. [address] REPORTER documented in this encounter Plan of Treatment Not on filedocumented as of this encounter Goals Goal Patient Goal Associated Recent Patient-Stated? Author Type Problems Progress Routine Health General No change Peter Monzon (02/05/2021 Abbie Murray, 11:[address] REPORTER) RN Note: Formatting of this note is differe nt from the original. Routine Health Management Care Team Patient Care Team: Corrine Vazquez MD [facility] - [facility] Yossi Potts, RN as Registered Nurse (Diabetes Education) Abbie Ramesh, RN as Industry Operations Investigator Future Scheduled Appointments No future appointments. Health [...] change (02/05/2021 11:17 AM Abbie Monzon, RN [address] REPORTER) Note: Formatting of this note is differe [...] Primary documented in this encounter Care Teams Cooperative Education Coordinator Relationship Specialty Start Date End Date Corrine Vazquez MD PCP - General Family Medicine 07/07/19 08/19/[address] [place] [address] documented as of this encounter
--- OUTSIDE RECORDS SUMMARY | 2021-09-05 00:11 | XMS_ITS | Encounter Summary ---
:1945 Author Organization [facility] Address [address] [place] [address] Care Team Providers Name Role Phone Lincoln Vazquez MD Primary Care Provider Reason for Visit Consultation (Routine) - Closed Specialty Diagnoses / Procedures Referred By Contact Refer red To Contact Diagnoses Medicare annual wellness visit, initial Corrine Vazquez MD Care Coordination [address] [place], [place] [phone] Referral ID Status Reason Start Date Expiration Date Visits V isits Requested Authorized [id number] Closed Specialty 12/23/2018 99 99 Services Required Encounter Details Date Type Department Care Team Description 10/06/2019 Patient Outreach SE Care Coordination Abbie Ramesh Counseling and coordination of care (Primary Dx); [address] Terri RN Type 2 diabetes mellitus with other spec ified complication, with long-term current use of insulin ([facility]); [place] [address] [address] Rheumatoid arthritis, involv ing unspecified site, unspecified rheumatoid factor presence ([facility]); [phone] [facility] Mixed hyperlipidemia; [place], [place] Rheumatoid art hritis, involving unspecified site, unspecified whether rheumatoid factor present ([facility]) [phone] Social History Tobacco Use Types Packs/Day [...] or relatives? How often do you attend denominational or More than 4 times per year 12/23/2018 sikh services? Do you belong to any clubs or No 12/23/2018 organizations such as denominational groups, unions, fraternal or athletic groups, or [...] encounter Progress Notes Abbie Ramesh RN - 10/06/2019 3:00 PM CDT Continued Care Plan - Care Coordination Discussion Date: 10/06/2019 3:55 PM Completed CCM monthly follow up with Marcial She continues to work towards previously set goals. Today's discussion: ??? Diabetes: states blood sugar readings have been good in the morning but higher during the day. It was discussed at her last ENDO appt about the possibility of starting another insulin for a short time. Phone appt with Denny Potts in diabetes education yesterday. She states reporting her numbers to him. ??? RA: back on track with her treatments since UTI resolved. Had difficult time with IV start otherwise unremarkable. Follow-up plan: ?? Monthly calls or sooner if needed ?? Reinforced 08/09 nurse line Items for Provider to address: ??? Marcial is wondering if she will be prescribed another insulun Goals 08/26/19 07/19/19 07/06/19 06/03/19 General ??? Diabetes Management Diabetes Management Managed by (PCP or Endocrinology) Dr. Stewart Last: 06/13/19 Next appt: 09/12/19 Lifestyle management (diet and exercise) Home Glucose tracking 1-3 times per day Diabetic medications insulin glargine (BASAGLAR KWIKPEN) 100 UNIT/ML injection glipiZIDE (GLUCOTROL XL) 10 MG 24 hr tablet Statin therapy Intolerance: taking rosuvastatin (CRESTOR) 5 MG tablet Aspirin therapy (if applicable: diagnosis IVD) Diabetic labs: Hemoglobin A1C (goal: less than 8.0) LDL (goal: less than 100) Creatinine Urine-Micro albumin / Protein Lab Results Component Value Date HGBA1C 8.5 (H) 06/01/2019 Lab Results Component Value Date LDLCALC 139 (A) 10/29/2018 CREATININE 1.3 (H) 06/01/2019 Recent Blood Pressure (goal: less than 140/90) BP Readings from Last 1 Encounters: 08/16/19 134/76 Diabetic Eye Exam (yearly) Last: 12/17/18 Diabetic Foot Exam (yearly) Last: 07/15/2018 Tobacco use Social History Tobacco Use Smoking status: Never Smoker Smokeless tobacco: Never Used Notes / Items to work on: -Updated foot exam ??? Health Maintenance (pt-stated) On track On track On track On track Health Maintenance Topic Date Due ??? Diabetic Foot Exam 07/16/2019 ??? Hemoglobin A1C 08/31/2019 ??? Mammogram 11/26/2019 ??? Glaucoma Screening 67+ Yr 12/18/2019 ??? Ophthalmology Exam 12/18/2019 ??? Fall Risk Performed 12/24/2019 ??? [facility] Annual Wellness 12/24/2019 ??? Lipid Panel 03/17/2020 ??? Urine Protein Screening 05/31/2020 ??? Colorectal Cancer Screening: Colonoscopy 05/21/2021 ??? Pneumococcal PPSV23/PCV13 65+ Years / Low and Medium Risk Completed ??? HPV Vaccines Aged Out Lifestyle ??? Keep your medical appointments On track On track On track Future Appointments Date Time Provider Department Center 09/06/2019 8:00 AM [facility] [place] 09/12/2019 10:00 AM [facility] Yossi Potts RN - 10/06/2019 3:00 PM CDT If we need to add another insulin. Yes. documented in this encounter Plan of Treatment Not on filedocumented as of this encounter Goals Goal Patient Goal Associated Recent Patient-Stated? Author Type Problems Progress Routine Health General No change No Domitila, Management (02/05/2021 Abbie Murray, 11:19 AM PACKAGING ASSEMBLER) RN Note: Formatting of this note is differe nt from the original. Routine Health Management Care Team Patient Care Team: Corrine Vazquez MD as PCP - General ([facility] Medicine) Yossi Potts, RN as Registered Nurse (Diabetes Education) Abbie Ramesh, RN as Compliance Advisor Future Scheduled Appointments No future appointments. [...] (02/05/2021 11:17 AM No Abbie Ramesh, RN PACKAGING ASSEMBLER) Note: Formatting of this note is differe [...] with long-term current use of insulin (HCC) Rheumatoid arthritis, involving unspecif ied site, unspecified whether rheumatoid factor present (HCC) Mixed hyperlipidemia documented in this encounter Care Teams Emergency Department Director Relationship Specialty Start Date End Date Corrine Vazquez MD PCP - General Family Medicine 07/07/19 08/19/[address] [place] [address] documented as of this encounter
--- OUTSIDE RECORDS SUMMARY | 2021-09-05 00:11 | XMS_ITS | Encounter Summary ---
:1945 Author Organization [facility] Address [address] [place] [address] Care Team Providers Name Role Phone Lincoln Vazquez MD Primary Care Provider Reason for Visit Reason Onset Date Comments Med Refill 09/23/2019 Encounter Details Date Type Department Care Team Description 09/23/2019 Refill [place] Corrine Vazquez, [facility], [address] [facility] [address] [place] unspecified type [place], [place] [id number] [place] [address] [place] [address] Social History Tobacco Use Types Packs/Day Years [...] or relatives? How often do you attend worship or More than 4 times per year 12/23/2018 yarsani services? Do you belong to any clubs or No 12/23/2018 organizations such as worship groups, unions, fraternal or athletic groups, or [...] Telephone Encounter - Pam Krause LPN - 09/23/2019 7:52 AM CDT Last visit in provider department: 03/07/19 Last visit requested medication was discussed:Dx or Med not discussed in the last year Upcoming appointment with provider: Visit date not found Last Rx: levothyroxine (SYNTHROID) 75 MCG tablet 06/22/19 #90 no refills Requested Prescriptions Pending Prescriptions Disp Refills ??? levothyroxine (SYNTHROID) 75 MCG tablet 90 tablet 0 Sig: Take 1 tablet (75 mcg total) by mouth 1 (one) time each day Labs: TSH 04/22/18 Patient is due for CP and Labs appointment. PSR/Nurse: Please contact patient to assist with scheduling. documented in this encounter Plan of Treatment Not on filedocumented as of this encounter Goals Goal Patient Goal Associated Recent Patient-Stated? Author Type Problems Progress Routine Health General No change Peter Monzon (02/05/2021 Abbie Murray, 11:19 AM COMMUNITY SERVICE COORDINATOR) RN Note: Formatting of this note is differe nt from the original. Routine Health Management Care Team Patient Care Team: Corrine Vazquez MD as PCP - General ([facility]) Yossi Potts RN as Registered Nurse (Diabetes Education) Abbie Ramesh RN as Production Roustabout Future Scheduled Appointments No future appointments. Health Maintenance Health Maintenance Topic Date Due Urine Protein Screening 05/31/2020 Lipid Panel 09/05/2020 Glaucoma Screening 67+ Yr 12/25/2020 Ophthalmology Exam 12/25/2020 [facility] Annual Wellness 01/12/2021 Hemoglobin A1C 01/24/2021 Diabetic [...] change (02/05/2021 11:17 AM Abbie Monzon, RN COMMUNITY SERVICE COORDINATOR) Note: Formatting of this note is differe [...] type documented in this encounter Care Teams Can Marker Relationship Specialty Start Date End Date Corrine Vazquez MD PCP - General Family Medicine 07/07/19 08/19/[address] [place] [address] documented as of this encounter
--- OUTSIDE RECORDS SUMMARY | 2021-09-05 00:12 | XMS_ITS | Encounter Summary ---
:1945 Author Organization [facility] Address [address] [place] [address] Care Team Providers Name Role Phone Lincoln Vazquez MD Primary Care Provider Encounter Details Date Type Department Care Team Description 09/06/2019 Orders Only [place] Corrine Vazquez MD [address] [place], [place] [address] [place], [place] [phone] (Wo rk) Social History Tobacco Use Types [...] More than 4 times per year 12/23/2018 gnosticist services? Do you belong to any clubs or No 12/23/2018 organizations such as uatsdin groups, unions, fraternal or athletic groups, or [...] Domitila, Management (02/05/2021 Abbie Murray, 11:19 AM PHARMACY ANCILLARY) RN Note: Formatting of this note is differe nt from the original. Routine Health Management Care Team Patient Care Team: Corrine Vazquez MD as PCP - General ([facility] Medicine) Yossi Potts, RN as Registered Nurse (Diabetes Education) Abbie Ramesh, ERA as Neurosurgical Physician Assistant Future Scheduled Appointments No future appointments. [...] (02/05/2021 11:17 AM No Abbie Ramesh, RN PHARMACY ANCILLARY) Note: Formatting of this note is differe [...] on filedocumented in this encounter Care Teams Felt Cutter Relationship Specialty Start Date End Date Corrine Vazquez MD PCP - General Family Medicine 07/07/19 08/19/[address] [place] [address] documented as of this encounter
--- OUTSIDE RECORDS SUMMARY | 2021-09-05 00:12 | XMS_ITS | Encounter Summary ---
:[address] [facility] Address [address] [place] [address] Care Team Providers Name Role Phone Ronak Patel WELDING LEAD BURNER, BAKERY ASSISTANT Primary Care Provider Reason for Visit Reason Comments Med Refill Encounter Details Date Type Department Care Team Description 06/18/2019 Refill SE Endocrinology Terry Bacilio, Type 2 diabetes mellitus [address] [place] [address] complication, without [phone] [place], [place] [address] insulin ([facility]) Social History Tobacco Use Types Packs/Day [...] More than 4 times per year 12/23/2018 orthodoxy services? Do you belong to any clubs [...] been in contact with No / Unsure 06/01/2019 8:27 AM CDT someone who was confirmed or suspected to have Coronavirus / COVID-19? documented as of this encounter Miscellaneous Notes Telephone Encounter - Sumaya Simona Mckoy LPN - 06/21/2019 12:39 PM CDT Last visit in provider department: 06/13/2019 Last visit requested medication was discussed: 06/13/2019 Upcoming appointment with provider: 09/12/2019 Last Rx: #100, 3 refills 07/19/2018 Requested Prescriptions Pending Prescriptions Disp Refills ??? pen needle, diabetic (1st Tier Unifine Pentips Plus) 31G X 5 MM misc [Pharmacy Med Name: 1ST TIER UNIFINE PE 31G X 5 MM MISC] 3 Sig: USE TO INJECT INSULIN ONCE A DAY Labs: ALBUMIN Date Value Ref Range Status 07/15/2018 4.0 3.5 - 5.0 g/dL Final CREATININE Date Value Ref Range Status 06/01/2019 1.3 (H) 0.4 - 1.2 mg/dL Final Comment: . CHOL Date Value Ref Range Status 10/29/2018 243 (A) 0 - 199 mg/dL Final Comment: Recommended by National Cholesterol Education Program (ATP III) -------- Cholesterol Ranges -------- <200 Desirable 200-239 Borderline high >=240 High LDLCALC Date Value Ref Range Status 10/29/2018 139 (A) 0 - 99 mg/dL Final Comment: -------- LDL Ranges -------- <100 Optimal 100-129 Near optimal/above optimal 130-159 Borderline high 160-189 High >=190 Very high HDL Date Value Ref Range Status 10/29/2018 36 (A) 40 - 60 mg/dL Final Comment: -------- HDL Ranges -------- <40 Low 40-59 Normal >=60 Optimal TRIG Date Value Ref Range Status 10/29/2018 340 (A) 0 - 149 mg/dL Final Comment: -------- TRIG Ranges -------- <150 Normal 150-199 Borderline high 200-499 High >=500 Very high HGBA1C Date Value Ref Range Status 06/01/2019 8.5 (H) 4.0 - 5.6 % A1C Final Comment: Reference Range 4.0-5.6% is for non- adults >=18 yrs <5.6% Non-Diabetic 5.7-6.4% Increased risk of Diabetes >=6.5% Indicative of Diabetes <7.0% ADA goal for glycemic control Methodology may not detect all hemoglobin variants which can affect A1c results. Method certified by National Glycohemoglobin Standardization Program. Vitals: BP Readings from Last 2 Encounters: 03/07/19 128/70 12/23/18 152/82 documented in this encounter Plan of Treatment Not on filedocumented as of this encounter Goals Goal Patient Goal Associated Recent Patient-Stated? Author Type Problems Progress Routine Health General No change No Domitila, Management (02/05/2021 Abbie Murray, 11:19 AM SCOURING PADS SUPERVISOR) RN Note: Formatting of this note is differe nt from the original. Routine Health Management Care Team Patient Care Team: Corrine Vazquez MD as PCP - General ([facility]) Yossi Potts, RN as Registered Nurse (Diabetes Education) Abbie Ramesh, RN as Dry Transfer Worker Future Scheduled Appointments No future appointments. Health Maintenance Health Maintenance Topic Date Due Urine Protein Screening 05/31/2020 Lipid Panel 09/05/2020 Glaucoma Screening 67+ Yr 12/25/2020 Ophthalmology Exam 12/25/2020 [facility] [place]ness 01/12/2021 Hemoglobin A1C 01/24/2021 Diabetic Foot Exam 03/16/2021 Colorectal Cancer Screening: Colonoscop y 05/21/2021 Fall Risk Performed 06/05/2021 Mammogram 12/03/2021 COVID-19 Vaccine Completed [facility] Pneumococcal Vaccine: <64 Complete d [facility] Pneumococcal Vaccine: 65+ Years Co mpleted HPV Vaccines Aged Out Notes: Due: Urine Protein screening Eye exam AWV A1C Lipid panel documented as of this encounter Visit Diagnoses Diagnosis Type 2 diabetes mellitus with other spec ified complication, without long-term current use of insulin (HCC) documented in this encounter Care Teams Cafeteria Supervisor Relationship Specialty Start Date End Date Adriane Patel, WELDING LEAD BURNER, BAKERY ASSISTANT PCP - General 09/22/17 07/06/19 [address] [place], [place] [address] documented as of this encounter
--- OUTSIDE RECORDS SUMMARY | 2021-09-05 00:12 | XMS_ITS | Encounter Summary ---
:1945 Author Organization [facility] Address [address] [place] [address] Care Team Providers Name Role Phone Lincoln Vazquez MD Primary Care Provider Reason for Visit Reason Onset Date Comments Lab questions 08/31/2019 Encounter Details Date Type Department Care Team Description 08/31/2019 Telephone [place] Corrine Vazquez MD Lab questions [address] [place], [place] [address] [place], [place] [phone] [address] (Wo rk) Social History Tobacco Use Types [...] More than 4 times per year 12/23/2018 presybeterian services? Do you belong to any clubs [...] Telephone Encounter - Margareth Sanchez RN - 09/01/2019 7:33 AM CDT Mailed. Telephone Encounter - Corrine Vazquez MD - 08/31/2019 8:28 PM CDT I talked to Marcial. She would like a copy of just her UC report. Please copy and mail to her. Telephone Encounter - Hali Cormier MA - 08/31/2019 10:36 AM CDT Spoke with patient who wanted to know her upcoming lab work was for Dr. Stewart. Review fasting labs orders with her and patient is also wondering if she can get the results of her urinalysis, culture andwet prep either called or mailed to her as she said no one got back to her. Please advise. Telephone Encounter - Luciana Albarado - 08/31/2019 9:17 AM CDT Pt called requesting to talk with a nurse about some lab work she is supposed to be having next week. Please call Pt at [phone] to advise. documented in this encounter Plan of Treatment Not on filedocumented as of this encounter Goals Goal Patient Goal Associated Recent Patient-Stated? Author Type Problems Progress Routine Health General No change No Peter Ramesh (02/05/2021 Abbie Murray, 11:19 AM COATING MIXER TENDER) RN Note: Formatting of this note is differe nt from the original. Routine Health Management Care Team Patient Care Team: Corrine Vazquez MD as PCP - General ([facility] Medicine) Yossi Potts, RN as Registered Nurse (Diabetes Education) Abbie Ramesh RN as Nursing Informatics Specialist Future Scheduled Appointments No future appointments. Health Maintenance Health Maintenance Topic Date Due Urine Protein Screening 05/31/2020 Lipid Panel 09/05/2020 Glaucoma Screening 67+ Yr 12/25/2020 Ophthalmology Exam 12/25/2020 [facility] Annual Wellness 01/12/2021 Hemoglobin A1C 01/24/2021 Diabetic Foot Exam 03/16/2021 Colorectal Cancer Screening: Colonoscop y 05/21/2021 Fall Risk Performed 06/05/2021 Mammogram 12/03/2021 COVID-19 Vaccine Completed [facility] [place] Pneumococcal Vaccine: <64 Complete d [facility] Pneumococcal Vaccine: 65+ Years Co mpleted HPV Vaccines Aged Out Notes: Due: Urine Protein screening Eye exam AWV A1C Lipid panel Diabetes Management General No change (02/05/2021 11:17 AM No Abbie Ramesh, RN COATING MIXER TENDER) Note: Formatting of this note is [...] on filedocumented in this encounter Care Teams Soakers Supervisor Relationship Specialty Start Date End Date Corrine Vazquez MD PCP - General Family Medicine 07/07/19 08/19/[address] [place] [address] documented as of this encounter
--- OUTSIDE RECORDS SUMMARY | 2021-09-05 00:12 | XMS_ITS | Encounter Summary ---
:1945 Author Organization [facility] Address [address] [place] [address] Care Team Providers Name Role Phone Lincoln Vazquez MD Primary Care Provider Encounter Details Date Type Department Care Team Description 08/27/2019 Orders Only [place] Corrine Vazquez MD [address] [place], [place] [address] [place], [place] [phone] (Wo rk) Social History Tobacco Use Types [...] Domitila, Management (02/05/2021 Abbie Murray, 11:19 AM CERAMIC PRODUCTS SALES ENGINEER) RN Note: Formatting of this note is differe nt from the original. Routine Health Management Care Team Patient Care Team: Corrine Vazquez MD as PCP - General ([facility] Medicine) Yossi Potts, RN as Registered Nurse (Diabetes Education) Abbie Ramesh, ERA as Boom Supervisor Future Scheduled Appointments No future appointments. [...] (02/05/2021 11:17 AM No Abbie Ramesh, RN CERAMIC PRODUCTS SALES ENGINEER) Note: Formatting of this note is differe [...] on filedocumented in this encounter Care Teams Steam Hoist Operator Relationship Specialty Start Date End Date Corrine Vazquez MD PCP - General Family Medicine 07/07/19 08/19/[address] [place] [address] documented as of this encounter
--- OUTSIDE RECORDS SUMMARY | 2021-09-05 00:12 | XMS_ITS | Encounter Summary ---
:1945 Author Organization [facility] Address [address] [place] [address] Care Team Providers Name Role Phone Lincoln Vazquez MD Primary Care Provider Encounter Details Date Type Department Care Team Description 09/06/2019 Lab [place] Type 2 diabetes mellitus wit h other specified complication, with long-term current use of insulin (HCC); [address] Mixed hyperlipidemia; [place], [place] [address] Essential hypertension; [phone] Stage 3 chronic kidney disease (HCC) Social History Tobacco Use Types Packs/Day [...] More than 4 times per year 12/23/2018 faith services? Do you belong to any clubs [...] No change Hailee Ramesh, Management (02/05/2021 Abbie Murray 11:19 AM AUTOMATIC PACKER OPERATOR) RN Note: Formatting of this note is differe nt from the original. Routine Health Management Care Team Patient Care Team: Corrine Vazquez MD as PCP - General ([facility] Medicine) Yossi Potts, ERA as Registered Nurse (Diabetes Education) Abbie Ramesh, RN as Journeyman Sheet Metal Worker Future Scheduled Appointments No future appointments. [...] (02/05/2021 11:17 AM No Abbie Ramesh, RN AUTOMATIC PACKER OPERATOR) Note: Formatting of this note is [...] Date/Time Associated Diagnosis Comme nts GLOMERULAR Routine 09/06/2019 8:08 Type 2 diabetes Results for this FILTRATION RATE AM CDT mellitus with other proce dure are in specified the results complication, with section. long-term current use of insulin (HCC) Stage 3 chronic kidney disease ( HCC) Essential hypertension HEMOGLOBIN A1C Routine 09/06/2019 8:08 Type 2 diabetes Result s for this AM CDT mellitus with other procedur e are in specified the results complication, with section. long-term current use of insulin (HCC) HEPATIC FUNCTION Routine 09/06/2019 8:08 Type 2 diabetes Resu lts for this PANEL AM CDT mellitus with other procedur e are in specified the results complication, with section. long-term current use of insulin (HCC) Mixed hyperlipid emia Essential hypertension LIPID PANEL Routine 09/06/2019 8:08 Type 2 diabetes Results for this AM CDT mellitus with other procedur e are in specified the results complication, with section. long-term current use of insulin (HCC) Mixed hyperlipid emia Essential hypertension BASIC METABOLIC Routine 09/06/2019 8:08 Type 2 diabetes Resul ts for this PANEL AM CDT mellitus with other procedur e are in specified the results complication, with section. long-term current use of insulin (HCC) Stage 3 chronic kidney disease ( HCC) Essential hypertension documented in this encounter Results (ABNORMAL) Glomerular filtration rate (GFR) (09/06/2019 8:08 AM CDT) P athologist Signature GFR 37 (A) 09/06/2019 [facility] 8:31 AM CDT [facility] 45 (A) 09/06/2019 [facility] Panamanian GFR 8:31 AM CDT [facility] Comment: GFR calculated from serum creatinine v alue Chronic Kidney Disease less than 60 mL/m in/1.73 m2 Kidney Failure less than 15 mL/min/1.73 m2 Note: effective 07/01/06 IDMS-Traceable MDRD Study Equation used. Specimen Anatomical Collection Method Collection Time Receive d Time (Source) Location / / Volume Laterality 09/06/2019 8:08 09/06/2019 AM CDT 8:08 AM CDT Bacilio SETHI LAB BLOOD ORDERABLES Performing Organization Address City/State/ZIP Code Phon e Number [facility] [address] [place] [address] (ABNORMAL) Liver panel (09/06/2019 8:08 AM CDT) Analysis Performed At Patho logist Time Signature Total Protein 7.6 6.3 - 8.2 09/06/2019 [facility] g/dL 3:02 PM [facility] Albumin, Serum 4.0 3.5 - 5.0 09/06/2019 [facility] g/dL 3:02 PM [facility] Total Bilirubin <0.7 0.1 - 1.0 09/06/2019 [facility] mg/dL 3:02 PM [facility] Bilirubin, <0.1 0.0 - 0.3 09/06/2019 [facility] Direct mg/dL 3:02 PM [facility] AST 28 8 - 43 U/L 09/06/2019 [facility] 3:02 PM [facility] Alkaline 99 38 - 128 09/06/2019 [facility] Phosphatase U/L 3:02 PM [facility] ALT (SGPT) 52 (H) 0 - 34 U/L 09/06/2019 [facility] 3:02 PM [facility] Specimen Anatomical Collection Method Collection Time Receive d Time (Source) Location / / Volume Laterality Blood 09/06/2019 8:08 09/06/2019 AM CDT 1:16 PM CDT Bacilio SETHI LAB BLOOD ORDERABLES Performing Organization Address City/State/ZIP Code Phon e Number [facility] [address] [place] [address] (ABNORMAL) Basic metabolic panel (09/06/2019 8:08 AM CDT) P athologist Signature Sodium 139 135 - 145 09/06/2019 [facility] mmol/L 8:31 AM CDT [place] Potassium 4.0 3.5 - 5.1 09/06/2019 [facility] mmol/L 8:31 AM T [place] Comment: . Chloride 103 98 - 107 mmol/L 09/06/2019 8:31 AM CDT [facility] Comment: . CO2 28 22 - 29 mmol/L 09/06/2019 8:31 AM CDT [facility] Comment: . Creatinine 1.4 (H) 0.4 - 1.2 mg/dL 09/06/2019 8:31 AM CDT [facility] Comment: . BUN 28 (H) 5 - 25 mg/dL 09/06/2019 8:31 AM CDT [facility] Comment: . Glucose 157 (H) 70 - 100 mg/dL 09/06/2019 8:31 AM [facility] EMDEN CDT Calcium, Total,S 9.7 8.4 - 10.2 mg/dL 09/06/2019 8:31 AM [facility] CDT Comment: . Specimen Anatomical Collection Method Collection Time Receive d Time (Source) Location / / Volume Laterality Blood 09/06/2019 8:08 09/06/2019 AM CDT 8:20 AM CDT Bacilio [facility] LAB BLOOD ORDERABLES Performing Organization Address City/State/ZIP Code Phon e Number [facility] [address] [place] [address] (ABNORMAL) Hemoglobin A1c (09/06/2019 8:08 AM CDT) Analysis Performed At Patho logist Time Signature Hemoglobin A1C 8.3 (H) 4.0 - 5.6 09/06/2019 [facility] % A1C 2:39 PM CDT [facility] Comment: Reference Range 4.0-5.6% [...] (Source) Location / / Volume Laterality Blood 09/06/2019 8:08 09/06/2019 AM CDT 1:16 PM CDT Bacilio [facility] LAB BLOOD ORDERABLES Performing Organization Address City/State/ZIP Code Phon e Number [facility] [address] [place] [address] (ABNORMAL) Lipid panel (09/06/2019 8:08 AM CDT) P athologist Signature Cholesterol 183 0 - 199 09/06/2019 [facility] mg/dL 3:02 PM [facility] Comment: Recommended by National Cholesterol Education Program (ATP III) -------- Cholesterol Ranges -------- <200 ? Desirable 200-239 ? Borderline high >=240 ? High Triglycerides 234 (A) 0 - 149 mg/dL 09/06/2019 3:02 PM CDT [facility] Comment: -------- TRIG Ranges -------- <150 ?Normal 150-199 ? Borderline high 200-499 ? High >=500 ? Very high HDL 37 (A) 40 - 60 mg/dL 09/06/2019 3:02 PM CDT [facility] Comment: -------- HDL Ranges -------- <40 ?Low 40-59 ?Normal >=60 ? Optimal LDL Calculated 99 0 - 99 mg/dL 09/06/2019 3:02 PM CD T [facility] Comment: -------- LDL Ranges -------- <100 ? Optimal 100-129 ?Near optimal/above op timal 130-159 ?Borderline high 160-189 ?High >=190 ?Very high Fasting? Yes 09/06/2019 8:20 AM T [facility] Specimen Anatomical Collection Method Collection Time Receive d Time (Source) Location / / Volume Laterality Blood 09/06/2019 8:08 09/06/2019 AM CDT 1:16 PM CDT Bacilio [facility] LAB BLOOD ORDERABLES Performing Organization Address City/State/ZIP Code Phon e Number [facility] [address] [place] [address] documented in this encounter Visit Diagnoses Diagnosis Type 2 diabetes mellitus with other spec ified complication, with long-term current use of insulin (HCC) Mixed hyperlipidemia Essential hypertension Unspecified essential hypertension Stage 3 chronic kidney disease (HCC) documented in this encounter Care Teams Ball Sorter Relationship Specialty Start Date End Date Corrine Vazquez MD PCP - General Family Medicine 07/07/19 08/19/21 [address] [place] [address] documented as of this encounter
--- OUTSIDE RECORDS SUMMARY | 2021-09-05 00:12 | XMS_ITS | Encounter Summary ---
:1945 Author Organization [facility] Address [address] [place] [address] Care Team Providers Name Role Phone Lincoln Vazquez MD Primary Care Provider Reason for Visit Reason Onset Date Comments Medication cost 07/22/2019 Encounter Details Date Type Department Care Team Description 07/22/2019 Telephone SE Endocrinology Bacilio Stewart MBBS Medication cost [address] [place] [address] [place] [address] [phone] (Wo rk) Social History Tobacco Use Types [...] or relatives? How often do you attend scientologist or More than 4 times per year 12/23/2018 confucianist services? Do you belong to any clubs or No 12/23/2018 organizations such as scientologist groups, unions, fraternal or athletic groups, or [...] this encounter Miscellaneous Notes Telephone Encounter - Rebecca Ibrahim MA - 07/26/2019 3:21 PM CDT Patient informed of above message and verbalized an understanding. Telephone Encounter - JOSE DE JESUS Austin - 07/26/2019 3:11 PM CDT Let's check coverage for Tradgenta 5 mg daily, I will send a prescription. Telephone Encounter - Renita Schwartz MD - 07/25/2019 4:[address] Patient of Dr. Stewart. Will forward. Telephone Encounter - Rebecca Ibrahim MA - 07/25/2019 9:17 AM CDT Patient has Medicare therefore she can not use any coupons. Telephone Encounter - JOSE DE JESUS Austin - 07/22/2019 4:54 PM CDT We can try another agent in the same class and see if better coverage. Do we have any coupons? 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 She believes that she is in the donut hole right now and is wondering what she can do in the meantime to help with the cost ofher Januvia or the need to switch this to something else. Patient again does not want to try the Ozempic due to her mom's unknown thyroid history but this would also be costly as well. documented in this encounter Plan of Treatment Not on filedocumented as of this encounter Goals Goal Patient Goal Associated Recent Patient-Stated? Author Type Problems Progress Routine Health General No change No Domitila, Management (02/05/2021 Abbie Murray, 11:19 AM CIGAR HEAD HOLER) RN Note: Formatting of this note is differe nt from the original. Routine Health Management Care Team Patient Care Team: Corrine Vazquez MD as PCP - [facility] oYssi Potts, RN as Registered Nurse (Diabetes Education) Abbie Ramesh, ERA as Vehicle Dynamics Engineer Future Scheduled Appointments No future appointments. Health [...] on filedocumented in this encounter Care Teams Fish Straightener Relationship Specialty Start Date End Date Corrine Vazquez MD PCP - General Family Medicine 07/07/19 08/19/[address] [place] [address] documented as of this encounter
--- OUTSIDE RECORDS SUMMARY | 2021-09-05 00:12 | XMS_ITS | Encounter Summary ---
:1945 Author Organization [facility] Address [address] [place] [address] Care Team Providers Name Role Phone Lincoln Vazquez MD Primary Care Provider Encounter Details Date Type Department Care Team Description 09/02/2019 Telephone SE Endocrinology Bacilio Stewart MBBS [address] [place] [address] [place] [address] [phone] (Wo rk) Social History Tobacco Use Types [...] this encounter Miscellaneous Notes Telephone Encounter - Yossi Potts RN - 09/02/2019 3:28 PM CDT I called the patient again. Please see my new note of today (09/02/2019). Telephone Encounter - Mohini Barroso MA - 09/02/2019 1:40 PM CDT Refer to 08/29 documentation. Denny Potts RN, Please contact pt. Telephone Encounter - Alber Batista - 09/02/2019 1:13 PM CDT Patient called concerned about her glucose readings as she has been having a hard time to get them to stay down. Patient thinks it started when she was on antibiotics (7-2 thru 7-12). Please advise andreturn call to patient as she is so concerned about how high she gets. documented in this encounter Plan of Treatment Not on filedocumented as of this encounter Goals Goal Patient Goal Associated Recent Patient-Stated? Author Type Problems Progress Routine Health General No change No Peter Ramesh (02/05/2021 Abbie Murray, 11:19 AM ACQUISITIONS LIBRARIAN) RN Note: Formatting of this note is differe nt from the original. Routine Health Management Care Team Patient Care Team: Corrine Vazquez MD as [facility] - [facility] Yossi Potts RN as Registered Nurse (Diabetes Education) Abbie Ramesh RN as Immunology Specialist Future Scheduled Appointments No future appointments. [...] (02/05/2021 11:17 AM No Abbie Ramesh, RN ACQUISITIONS LIBRARIAN) Note: Formatting of this note is [...] on filedocumented in this encounter Care Teams Treating Inspector Relationship Specialty Start Date End Date Corrine Vazquez MD PCP - General Family Medicine 07/07/19 08/19/[address] [place] [address] documented as of this encounter
--- OUTSIDE RECORDS SUMMARY | 2021-09-05 00:12 | XMS_ITS | Encounter Summary ---
:1945 Author Organization [facility] Address [address] [place] [address] Care Team Providers Name Role Phone Lincoln Vazquez MD Primary Care Provider Reason for Visit Reason Comments Med Refill Encounter Details Date Type Department Care Team Description 07/20/2019 Refill [place] Corrine Vazquez, Frequency of micturition; [address] [facility] Anemia, unspecified type [place], [place] [id number] [place] [address] [place] [address] Social History Tobacco Use Types Packs/Day Years [...] More than 4 times per year 12/23/2018 nondenominational services? Do you belong to any clubs [...] this encounter Miscellaneous Notes Telephone Encounter - Vero Interiano RN - 07/25/2019 4:42 PM CDT I entered Ferrous Sulfate in refill request encounter. Telephone Encounter - Vero Interiano RN - 07/25/2019 4:39 PM CDT Pt does not have a UTI. She states she did not request this medication. She would like Ferrous Sulfate renewed at [facility] in [place] Telephone Encounter - Kenia Baron - 07/25/2019 3:45 PM CDT Patient returned nurse phone call. Please call [phone]. Telephone Encounter - Vero Interiano RN - 07/25/2019 8:26 AM CDT [email or web address] Telephone Encounter - Corrine Vazquez MD - 07/25/2019 7:51 AM CDT Looks like Marcial is requesting Macrobid for a possible UTI. Please call and review her symptoms and if she qualifies for an antibiotic we could treat without seeing her though I would place an order for a UA/UC when she comes in I would not again need to see her unless it sounds like it could be something else. Telephone Encounter - Zoey Thomas MA - 07/25/2019 6:59 AM CDT Last visit in provider department: 12/23/2018 Last visit requested medication was discussed: 12/23/2018 Upcoming appointment with provider: None Last Rx: 12/25/2018- 14 with no refills Requested Prescriptions Pending Prescriptions Disp Refills ??? nitrofurantoin, macrocrystal-monohydrate, (MACROBID) 100 MG capsule [Pharmacy Med Name: NITROFURANTOIN MONOHYD MAC 100 CAPS] 14 capsule 0 Sig: TAKE ONE CAPSULE BY MOUTH TWICE A DAY FOR 7 DAYS Patient is due for an appointment. PSR/Nurse: Please contact patient to assist with scheduling. documented in this encounter Plan of Treatment Not on filedocumented as of this encounter Goals Goal Patient Goal Associated Recent Patient-Stated? Author Type Problems Progress Routine Health General No change No Peter Ramesh (02/05/2021 Abbie Murray, 11:19 AM CAFE ASSISTANT) RN Note: Formatting of this note is differe nt from the original. Routine Health Management Care Team Patient Care Team: Corrine Vazquez MD as PCP - General ([facility] Medicine) Yossi Potts, RN as Registered Nurse (Diabetes Education) Abbie Ramesh, ERA as Furniture Associate Future Scheduled Appointments No future appointments. Health Maintenance Health Maintenance Topic Date Due Urine Protein Screening 05/31/2020 Lipid Panel 09/05/2020 Glaucoma Screening 67+ Yr 12/25/2020 Ophthalmology Exam 12/25/2020 [facility] Annual Wellness 01/12/2021 Hemoglobin A1C 01/24/2021 Diabetic Foot Exam 03/16/2021 Colorectal Cancer Screening: Colonoscop y 05/21/2021 Fall Risk Performed 06/05/2021 Mammogram 12/03/2021 COVID-19 Vaccine Completed [facility] Pneumococcal Vaccine: <64 Complete d OM Pneumococcal Vaccine: 65+ Years Co mpleted HPV Vaccines Aged Out Notes: Due: Urine Protein screening Eye exam AWV A1C Lipid panel documented as of this encounter Visit Diagnoses Diagnosis Frequency of micturition Urinary frequency Anemia, unspecified type documented in this encounter Care Teams Drill Presser Relationship Specialty Start Date End Date Corrine Vazquez MD PCP - General Family Medicine 07/07/19 08/19/[address] [place] [address] documented as of this encounter
--- OUTSIDE RECORDS SUMMARY | 2021-09-05 00:12 | XMS_ITS | Encounter Summary ---
:1945 Author Organization [facility] Address [address] [place] [address] Care Team Providers Name Role Phone Ronak Patel PRIVATE WATCHMAN, PANEL EDGE PAINTER Primary Care Provider Reason for Visit Reason Comments Diabetes Encounter Details Date Type Department Care Team Description 06/13/2019 [facility] Endocrinology Bacilio Stewart, Type 2 diabetes mellitus wit h other specified complication, with long-term current use of insulin (HCC) (Primary Dx); [address] [facility] MBBS Mixed hyperlipidemia; [place] [address] [address] [facility] Stage 3 chronic kidney disease (HCC); [phone] [place], [place] Essential hype rtension; [id number] Pain of upper abdomen Social History Tobacco Use Types Packs/Day Years [...] More than 4 times per year 12/23/2018 holiness services? Do you belong to any clubs [...] / COVID-19? documented as of this encounter Patient Instructions Patient InstructionsMohini Barroso MA - 06/13/2019 11:00 AM CDT We understand your concern regarding COVID-19 (Coronavirus). The recommendation is to wash your hands often with soap and water for at least 20 seconds, if soap and water are unavailable, please use alcohol-based hand police chief deputy. Cover your coughs and sneezes with a tissue or your sleeve, not in your hands. Avoid touching your eyes, nose, and mouth as well as coming in contact with people who are sick. If you are ill, please stay home from school, work, and activities. If you are ill and you need to go out into public, please wear a mask, if you have one available. documented in this encounter Progress Notes JOSE DE JESUS Austin - 06/13/2019 11:00 AM CDT Telephone Visit Patient: Marcial Adams 74 y.o. female 1945 Date of Service: 06/13/19 Primary care provider: Adriane Patel APRN, PANEL EDGE PAINTER Reason for visit: Marcial Adams is a 74 y.o. female presenting for follow up of diabetes. History of presenting illness: Marcial Adams is a female with medical history significantfor type 2 diabetes mellitus, hypertension, DLD, CAD, RA, CKD, BPPV and comorbidities as noted below. She was diagnosed with diabetes in 2007. She was last seen in 02/2019. Most recent a1c was 8.5% on 06/01/19, not significantly changes from 8.8% on 03/01/19. Current diabetes regimen includes Glipizide ER 20 mg daily and Januvia 50 mg daily. She has also been on basal insulin, currently Glargine 16 units daily. She increase dose from 14 units about a week ago. Our tip puncher, Denny Potts, has been in touch with her and adjusting her insulin dose. Shedeclined to transition to GLP1ra due to side effects concern. Metformin was not restarted due to borderline kidney function. She reports compliance with her diabetes regimen. Blood glucose readings from the past week were reviewed. She was checking 1-3 times/day. BG ranged between 99-283. Fasting sugars were mostly in the good range. No recent episodes of hypoglycemia. She usually eats 3 meals/day and snack in the morning. She acknowledges dietary indiscretion sometimes. She loves potatoes and bread. She reports sugars in the good range when limiting her carb intake. No smoking. Denies any alcohol use. Last eye exam showed no retinopathy in [place]. Dorsal aspectof toes hurts sometimes. Denies any numbness or tingling sensation in feet otherwise. No skin changes or diabetic foot ulcers. Exercise includes some walking almost daily. She completed labs on 06/01/19. Serum electrolytes were normal. Creatinine was 1.3 with an eGFR 40. BUN was elevated, 32 (5-25). Serum calcium was normal, 9.7. No microalbuminuria. PM/SH: Past Medical History: Diagnosis Date ??? [...] More than three times a week Attends holiness service: More than 4 times per year [...] Review of System: - Upper abdominal pain in the morning sometimes. Denies any radiation of pain. - Denies any nausea or vomiting. - [...] control. Recent a1c was not significantly changed, 8.5%. Morning/fasting sugars are generally reasonable but afternoon/evening sugars are higher. She acknowledged dietary indiscretion. No hypoglycemia. - I again discussed benefits and risks of GLP1ra agonists with her, she declined to try. - Insulin Glargine 16 units daily. Reviewed dose titration for FBG <140. - Continue Glipizide ER 20 mg daily. - Januvia 50 mg daily. - Patient was advised to continue to check sugars 1-2 times a day, fasting and alternating before meals and bedtime. - Watch your diet for excess carbs and avoid snacking. - Physical activity/exercise as tolerated. 2- Diabetes related complications: - Lipid: LDL 139 in 10/2018. Rosuvastatin dose was increased from 2.5 to 5 mg daily today. - No microalbuminuria in 05/2019. She has CKD. Creatinine was 1.3, eGFR 40 in 05/2019. She is on an ACEI. - No smoking - Last eye exam showed no retinopathy in 06/2018. - No skin changes or diabetic foot ulcers. - HTN. BP not checked today due to telephone encounter. - No neuropathy, had normal monofilament exam. 3. Upper abdominal pain: She has been having abdominal pain for the past few months. She was advised to discuss with her PCP for further evaluation. Follow up in 3 months, with a1c, CMP and FLP. The patient has consented to be consulted [...] Time spent during this phone call was 35 minutes. Bacilio Stewart MD Staff Network Support Analyst documented in this encounter Plan of Treatment Not on filedocumented as of this encounter Goals Goal Patient Goal Associated Recent Patient-Stated? Author Type Problems Progress Routine Health General No change No Roschen, Management (02/05/2021 Abbie Murray, 11:19 AM SALES ASSOCIATE CASHIER) RN Note: Formatting of this note is differe nt from the original. Routine Health Management Care Team Patient Care Team: Corrine Vazquez MD as PCP - General ([facility] Medicine) Yossi Potts, RN as Registered Nurse (Diabetes Education) Abbie Ramesh, RN as Sports Fitness And Wellness Director Future Scheduled Appointments No future appointments. [...] Lipid panel documented as of this encounter Results (ABNORMAL) Lipid panel (09/06/2019 8:08 AM CDT) athologist Signature Cholesterol 183 0 - 199 09/06/2019 [facility] mg/dL 3:02 PM [facility] Comment: Recommended by National Cholesterol Education Program (ATP III) -------- Cholesterol Ranges -------- <200 ? Desirable 200-239 ? Borderline high >=240 ? High Triglycerides 234 (A) 0 - 149 mg/dL 09/06/2019 3:02 PM T [facility] Comment: -------- TRIG Ranges -------- <150 ?Normal 150-199 ? Borderline high 200-499 ? High >=500 ? Very high HDL 37 (A) 40 - 60 mg/dL 09/06/2019 3:02 PM CDT [facility] Comment: -------- HDL Ranges -------- <40 ?Low 40-59 ?Normal >=60 ? Optimal LDL Calculated 99 0 - 99 mg/dL 09/06/2019 3:02 PM CD T [facility] Comment: -------- LDL Ranges -------- <100 ? Optimal 100-129 ?Near optimal/above op timal 130-159 ?Borderline high 160-189 ?High >=190 ?Very high Fasting? Yes 09/06/2019 8:20 AM CDT [facility] Specimen Anatomical Collection Method Collection Time Receive d Time (Source) Location / / Volume Laterality Blood 09/06/2019 8:08 09/06/2019 AM CDT 1:16 PM CDT Bacilio DELA CRUZ LAB BLOOD ORDERABLES Performing Organization Address City/State/ZIP Code Phon e Number [facility] [address] [place] [address] (ABNORMAL) Hemoglobin A1c (09/06/2019 8:08 AM CDT) Analysis Performed At Patho logist Time Signature Hemoglobin A1C 8.3 (H) 4.0 - 5.6 09/06/2019 [place] % A1C 2:39 PM T [facility] Comment: Reference Range 4.0-5.6% is [...] CRUZ LAB BLOOD ORDERABLES Performing Organization Address City/[facility]/ZIP Code Phon e Number [facility] [address] [place] [address] (ABNORMAL) Basic metabolic panel (09/06/2019 8:08 AM CDT) P athologist Signature Sodium 139 135 - 145 09/06/2019 [facility] mmol/L 8:31 AM CDT [place] Potassium 4.0 3.5 - 5.1 09/06/2019 [facility] mmol/L 8:31 AM CDT [place] Comment: . Chloride 103 98 - 107 mmol/L 09/06/2019 8:31 AM CDT [facility] [place] Comment: . CO2 28 22 - 29 mmol/L 09/06/2019 8:31 AM CDT [facility] [place] Comment: . Creatinine 1.4 (H) 0.4 - 1.2 mg/dL 09/06/2019 8:31 AM CDT [facility] [place] Comment: . BUN 28 (H) 5 - 25 mg/dL 09/06/2019 8:31 AM CDT [facility] [place] Comment: . Glucose 157 (H) 70 - 100 mg/dL 09/06/2019 8:31 AM [facility] [place] CDT Calcium, Total,S 9.7 8.4 - 10.2 mg/dL 09/06/2019 8:31 AM [facility] [place] CDT Comment: . Specimen Anatomical Collection Method Collection Time Receive d Time (Source) Location / / Volume Laterality Blood 09/06/2019 8:08 09/06/2019 AM CDT 8:20 AM CDT Bacilio SETHI LAB BLOOD ORDERABLES Performing Organization Address [facility]/ZIP Code Phon e Number [facility] [address] [place] [address] (ABNORMAL) Liver panel (09/06/2019 8:08 AM CDT) Analysis Performed At Patho logist Time Signature Total Protein 7.6 6.3 - 8.2 09/06/2019 [facility] g/dL 3:02 PM CDT [facility] Albumin, Serum 4.0 3.5 - 5.0 09/06/2019 [facility] g/dL 3:02 PM CDT [facility] Total Bilirubin <0.7 0.1 - 1.0 09/06/2019 [facility] mg/dL 3:02 PM [facility] Bilirubin, <0.1 0.0 - 0.3 09/06/2019 [facility] Direct mg/dL 3:02 PM [facility] AST 28 8 - 43 U/L 09/06/2019 [facility] 3:02 PM [facility] Alkaline 99 38 - 128 09/06/2019 [facility] Phosphatase U/L 3:02 PM [facility] ALT (SGPT) 52 (H) 0 - 34 U/L 09/06/2019 [place] 3:02 PM [facility] Specimen Anatomical Collection Method Collection Time Receive d Time (Source) Location / / Volume Laterality Blood 09/06/2019 8:08 09/06/2019 AM CDT 1:16 PM CDT Bacilio DELA CRUZ LAB BLOOD ORDERABLES Performing Organization Address City/State/ZIP Code Phon e Number [facility] [address] [place] [address] documented in this encounter Visit Diagnoses Diagnosis Type 2 diabetes mellitus with other spec ified complication, with long-term current use of insulin (HCC) - Primary Mixed hyperlipidemia Stage 3 chronic kidney disease (HCC) Essential hypertension Unspecified essential hypertension Pain of upper abdomen documented in this encounter Care Teams Computer Meteorologist Relationship Specialty Start Date End Date Adriane Patel APRN, PANEL EDGE PAINTER PCP - General 09/22/17 07/06/19 [address] [place] [address] documented as of this encounter
--- OUTSIDE RECORDS SUMMARY | 2021-09-05 00:12 | XMS_ITS | Encounter Summary ---
:1945 Author Organization [facility] Address [address] [place] [address] Care Team Providers Name Role Phone Lincoln Vazquez MD Primary Care Provider Encounter Details Date Type Department Care Team Description 08/16/2019 Lab [place] UTI symptoms; [address] Vaginal discharge [place] [address] Social History Tobacco Use Types [...] Peter Ramesh (02/05/2021 Abbie Murray, 11:19 AM AUTOMATIC LINE SET UP MECHANIC) RN Note: Formatting of this note is differe nt from the original. Routine Health Management Care Team Patient Care Team: Corirne Vazquez MD as [facility]CP - [facility] Yossi Potts, RN as Registered Nurse (Diabetes Education) Abbie Ramesh, ERA as Zoology Teacher Future Scheduled Appointments No future appointments. [...] Lipid panel documented as of this encounter Procedures Procedure Name Priority Date/Time Associated Comments Diagnosis WET MOUNT WITH RAPID Routine 08/16/2019 10:11 Vaginal discharg e Results for this TRICHOMONAS AM CDT procedure are i n the results section. URINALYSIS-MICROSCOPI Routine 08/16/2019 9:08 UTI symptoms Re sults for this C EXAM (REFLEXED) AM CDT procedure are in the results section. URINALYSIS WITH Routine 08/16/2019 9:08 UTI symptoms Results for this REFLEX MICROSCOPIC AM CDT procedure are in the results section. URINE CULTURE Routine 08/16/2019 9:08 Results fo r this AM CDT procedure are i n the results section. documented in this encounter Results (ABNORMAL) Wet Mount with Rapid Trichomonas (CF,LC,NW,PI,SC,SE,SW and WN only) (08/16/2019 10:11 AM CDT) [facility] Method Time Signature Rapid NEGATIVE Negative 08/16/2019 [facility] Trichomonas 10:26 AM [place] Test CDT Yeast, Wet Prep NEGATIVE Negative 08/16/2019 [facility] 4:04 PM [facility] Clue Cells, Wet NONE SEEN None Seen 08/16/2019 [facility] Prep /hpf 4:04 PM [facility] WBC, Wet Prep MODERATE (A) None Seen 08/16/2019 [facility] /hpf 4:04 PM CDT [facility] Specimen Anatomical Collection Method Collection Time Receive d Time (Source) Location / / Volume Laterality Swab 08/16/2019 10:11 08/16/2019 AM CDT 10:16 AM CDT Radha Sharma MD LAB BODY FLUIDS AND STOOLS O RADHA Performing Organization Address City/[facility]/ZIP Code Phon e Number [facility] [address] [place] [address] LABORATORY [facility] [address] [place] [address] (ABNORMAL) Urine culture (08/16/2019 9:08 AM CDT) [facility] ScaleArc Method Time Signature Urine Culture Escherichia coli 08/18/2019 [place] >100,000 cfu/ml 9:36 AM CDT [facility] [place] [facility] Specimen (Source) Anatomical Collection Method Collection Time Re ceived Time Location / / Volume Laterality Urine (Urine, 08/16/2019 9:08 08/17/2019 Collection Hat) AM CDT 2:33 PM CDT Comment: URINE Organism Antibiotic Method Susceptibility Escherichia coli Ampicillin >16 mcg/mL: Res istant Escherichia coli Ampicillin/Sulbactam >16/8 mcg/ mL: Resistant Escherichia coli Cefazolin 16 mcg/mL: Inte rmediate Escherichia coli Cefotaxime <=2 mcg/mL: Kalee ceptible Escherichia coli Ceftriaxone <=1 mcg/mL: Kalee ceptible Escherichia coli Cefuroxime 8 mcg/mL: Susce ptible Escherichia coli Gentamicin <=4 mcg/mL: Kalee ceptible Escherichia coli Nitrofurantoin 64 mcg/mL: Inte rmediate Escherichia coli Piperacillin/Tazobactam <=16 mc g/mL: Susceptible Escherichia coli Tetracycline <=4 mcg/mL: Kalee ceptible Escherichia coli Trimeth/Sulfa >2/38 mcg/mL: R esistant Radha Sharma MD LAB MICROBIOLOGY - GENERAL O RDERABLES Performing Organization Address City/[facility]/ZIP Code Phon e Number [facility] [address] [place] [address] (ABNORMAL) Urinalysis-Microscopic Exam (08/16/2019 9:08 AM CDT) [facility] Method Time Signature Casts, urine NONE SEEN 0-2 Hyaline 08/16/2019 [facility] /lpf 9:26 AM CDT [place] Significant NONE SEEN None Seen 08/16/2019 [facility] casts, urine /lpf 9:26 AM CDT [place] RBC, Urine 4-10 (A) 0 - 3 /hpf 08/16/2019 [facility] 9:26 AM CDT [place] WBC, Urine 21-50 (A) /hpf 08/16/2019 [facility] 9:26 AM CDT [place] Comment: Male Ref Range ? 0-3/hpf Female Ref Range ?? 0-10/hpf Squamous Epithelial, 1+ (A) Few /lpf 08/16/2019 9:26 AM [facility] [place] Urine CDT Trans Epithelial, NONE SEEN 0 - 3 /hpf 08/16/2019 9:26 AM [facility] [place] Urine CDT Renal Tubular Cells, NONE SEEN 0 - 1 /hpf 08/16/2019 9:26 A M [facility] [place] Urine CDT Bacteria, Urine FEW None Seen /hpf 08/16/2019 9:26 AM [facility] [place] CDT Specimen Anatomical Collection Method Collection Time Receive d Time (Source) Location / / Volume Laterality 08/16/2019 9:08 08/16/2019 AM CDT 9:10 AM CDT Radha Sharma MD LAB URINE ORDERABLES Performing Organization Address City/State/ZIP Code Phon e Number [facility] [place] [address] [place] [address] (ABNORMAL) Urinalysis with reflex microscopic (08/16/2019 9:08 AM CDT) [facility] Method Time Signature Type COLLECTION HAT 08/16/2019 [facility] 9:25 AM CDT [place] Color, Urine STRAW YELLOW 08/16/2019 [facility] 9:25 AM CDT [place] Clarity, HAZY (A) CLEAR 08/16/2019 [facility] Urine 9:25 AM CDT [place] Glucose, NEGATIVE NEGATIVE 08/16/2019 [facility] Urine mg/dL 9:25 AM CDT [place] Bilirubin, NEGATIVE NEGATIVE 08/16/2019 [facility] Urine 9:25 AM CDT [place] Ketones, NEGATIVE NEGATIVE 08/16/2019 [facility] Urine mg/dL 9:25 AM CDT [place] Specific 1.025 1.000 08/16/2019 [facility] [place], ->=1.030 9:25 AM CDT [place] Urine Blood, Urine MODERATE (A) NEGATIVE 08/16/2019 [facility] 9:25 AM CDT [place] pH, Urine 5.0 5.0 - 7.0 08/16/2019 [facility] 9:25 AM CDT [place] Protein, 30 (A) NEGATIVE-TRA 08/16/2019 [facility] Urine CE mg/dL 9:25 AM CDT [place] Urobilinogen, 0.2 0.2 - 1.0 08/16/2019 [facility] Urine E.U./dL 9:25 AM CDT [place] Nitrite, NEGATIVE NEGATIVE 08/16/2019 [facility] Urine 9:25 AM CDT [place] Leukocytes, SMALL (A) NEGATIVE 08/16/2019 [facility] Urine 9:25 AM CDT [place] Specimen Anatomical Collection Method Collection Time Receive d Time (Source) Location / / Volume Laterality Urine (Urine, 08/16/2019 9:08 08/16/2019 Clean Catch) AM CDT 9:10 AM CDT Radha Sharma MD LAB URINE ORDERABLES Performing Organization Address City/State/ZIP Code Phon e Number [facility] [address] [place] [address] documented in this encounter Visit Diagnoses Diagnosis UTI symptoms Vaginal discharge Leukorrhea, not specified as infective documented in this encounter Care Teams General Maintenance Mechanic Relationship Specialty Start Date End Date Corrine Vazquez MD PCP - General Family Medicine 07/07/19 08/19/[address] [place] [address] documented as of this encounter
--- OUTSIDE RECORDS SUMMARY | 2021-09-05 00:12 | XMS_ITS | Encounter Summary ---
:1945 Author Organization [facility] Address [address] [place] [address] Care Team Providers Name Role Phone Lincoln Vazquez MD Primary Care Provider Encounter Details Date Type Department Care Team Description 08/16/2019 Orders Only [place] Radha Sharma UTI symptoms (Primary [address] Dx) [place], [place] [address] Social History Tobacco Use [...] Ramesh (02/05/2021 Abbie Murray, 11:19 AM SUPERVISOR BLAST FURNACE) RN Note: Formatting of this note is differe nt from the original. Routine Health Management Care Team Patient Care Team: Corrine Vazquez MD as PCP - General ([facility]) Yossi Potts, RN as Registered Nurse (Diabetes Education) Abbie Ramesh, RN as Instructional Technology Instructor Future Scheduled Appointments No future appointments. [...] documented as of this encounter Results (ABNORMAL) Urinalysis with reflex microscopic (08/16/2019 9:08 AM CDT) [facility] gist Method Time Signature Type COLLECTION HAT 08/16/2019 [facility] 9:25 AM CDT [place] Color, Urine STRAW YELLOW 08/16/2019 [facility] 9:25 AM CDT [place] Clarity, HAZY (A) CLEAR 08/16/2019 [facility] Urine 9:25 AM CDT [place] Glucose, NEGATIVE NEGATIVE 08/16/2019 [facility] RAMIREZ Urine mg/dL 9:25 AM CDT [place] Bilirubin, NEGATIVE NEGATIVE 08/16/2019 [facility] RAMIREZ Urine 9:25 AM CDT [place] Ketones, NEGATIVE NEGATIVE 08/16/2019 [facility] Urine mg/dL 9:25 AM CDT [place] Specific 1.025 1.000 08/16/2019 [facility] [place], ->=1.030 9:25 AM CDT [place] Urine Blood, Urine MODERATE (A) NEGATIVE 08/16/2019 [facility] 9:25 AM CDT [place] pH, Urine 5.0 5.0 - 7.0 08/16/2019 [facility] 9:25 AM CDT [place] Protein, 30 (A) NEGATIVE-TRA 08/16/2019 [facility] Urine CE mg/dL 9:25 AM CDT [place] Urobilinogen, 0.2 0.2 - 1.0 08/16/2019 [facility] RAMIREZ Urine E.U./dL 9:25 AM CDT [place] Nitrite, NEGATIVE NEGATIVE 08/16/2019 [facility] RAMIREZ Urine 9:25 AM CDT [place] Leukocytes, SMALL (A) NEGATIVE 08/16/2019 [facility] RAMIREZ Urine 9:25 AM CDT [place] Specimen Anatomical Collection Method Collection Time Receive d Time (Source) Location / / Volume Laterality Urine (Urine, 08/16/2019 9:08 08/16/2019 [place]) AM CDT 9:10 AM CDT Radha Sharma MD LAB URINE ORDERABLES Performing Organization Address City/State/ZIP Code Phon e Number [facility] [place] [address] [place] [address] documented in this encounter Visit Diagnoses Diagnosis UTI symptoms - Primary documented in this encounter Care Teams Fiberglass Laminator Relationship Specialty Start Date End Date Corrine Vazquez MD PCP - General Family Medicine 07/07/19 08/19/[address] [place] [address] documented as of this encounter
--- OUTSIDE RECORDS SUMMARY | 2021-09-05 00:12 | XMS_ITS | Encounter Summary ---
:1945 Author Organization [facility] Address [address] [place] [address] Care Team Providers Name Role Phone Lincoln Vazquez MD Primary Care Provider Encounter Details Date Type Department Care Team Description 08/18/2019 Orders Only [place] Radha Sharma Urinary tract [address] [place] [address] hematuria, site [phone] unspecified (Pr imary Dx) Social History Tobacco Use Types Packs/Day [...] or relatives? How often do you attend jain or More than 4 times per year 12/23/2018 episcopalian services? Do you belong to any clubs or No 12/23/2018 organizations such as jain groups, unions, fraternal or athletic groups, or [...] Ramesh Management (02/05/2021 Abbie Murray, 11:19 AM REFRIGERATING MACHINE OPERATOR) RN Note: Formatting of this note is differe nt from the original. Routine Health Management Care Team Patient Care Team: Corrine Vazquez MD as PCP - [facility] ([facility] Yossi Potts, RN as Registered Nurse (Diabetes Education) Abbie Ramesh, ERA as Drone Software Development Engineer Future Scheduled Appointments No future appointments. [...] as of this encounter Visit Diagnoses Diagnosis Urinary tract infection without hematuri a, site unspecified - Primary documented in this encounter Care Teams Car Cleaning Supervisor Relationship Specialty Start Date End Date Corrine Vazquez MD PCP - General Family Medicine 07/07/19 08/19/[address] [place] [address] documented as of this encounter
--- OUTSIDE RECORDS SUMMARY | 2021-09-05 00:12 | XMS_ITS | Encounter Summary ---
:1945 Author Organization [facility] Address [address] [place] [address] Care Team Providers Name Role Phone Ronak Patel BAFFLE INSTALLER, HIGH SCHOOL COORDINATOR Primary Care Provider Encounter Details Date Type Department Care Team Description 06/01/2019 Travel Social History Tobacco Use Types Packs/Day [...] or relatives? How often do you attend restorationist or More than 4 times per year 12/23/2018 sabianism services? Do you belong to any clubs or No 12/23/2018 organizations such as restorationist groups, unions, fraternal or athletic groups, or [...] Ramesh Management (02/05/2021 Abbie Murray, 11:19 AM OSHA INSPECTOR) RN Note: Formatting of this note is differe nt from the original. Routine Health Management Care Team Patient Care Team: Corrine Vazquez MD as PCP - General ([facility]) Yossi Potts, RN as Registered Nurse (Diabetes Education) Abbie Ramesh, ERA as Thermal Cutter Helper Future Scheduled Appointments No future appointments. [...] on filedocumented in this encounter Care Teams Paint Stripper Relationship Specialty Start Date End Date Adriane Patel, BAFFLE INSTALLER, HIGH SCHOOL COORDINATOR PCP - General 09/22/17 07/06/19 [address] [facility] [place] [address] documented as of this encounter
--- OUTSIDE RECORDS SUMMARY | 2021-09-05 00:12 | XMS_ITS | Encounter Summary ---
:1945 Author Organization [facility] Address [address] [place] [address] Care Team Providers Name Role Phone Lincoln Vazquez MD Primary Care Provider Encounter Details Date Type Department Care Team Description 08/18/2019 Orders Only [place] Radha Sharma Urinary tract [address] [place] [address] hematuria, site [phone] unspecified (Pr imary Dx) Social History Tobacco [...] More than 4 times per year 12/23/2018 hinduism services? Do you belong to any clubs [...] Ramesh Management (02/05/2021 Abbie Murray, 11:19 AM ACCOUNTING RECONCILIATION CLERK) RN Note: Formatting of this note is differe nt from the original. Routine Health Management Care Team Patient Care Team: Corrine Vazquez MD as [facility]CP - [facility] Yossi Potts, RN as Registered Nurse (Diabetes Education) Abbie Ramesh, ERA as Paper Machine Operator Future Scheduled Appointments No future [...] Primary documented in this encounter Care Teams Disability Case Manager Relationship Specialty Start Date End Date Corrine Vazquez MD PCP - General Family Medicine 07/07/19 08/19/[address] [place] [address] documented as of this encounter
--- OUTSIDE RECORDS SUMMARY | 2021-09-05 00:12 | XMS_ITS | Encounter Summary ---
:1945 Author Organization [facility] Address [address] [place] [address] Care Team Providers Name Role Phone Lincoln Vazquez MD Primary Care Provider Reason for Visit Reason Comments urine symptoms pressure, vaginal drainage: yellow/lt brown, no burning with urination, pain on and off, slow stream Encounter Details Date Type Department Care Team Description 08/16/2019 Office Visit [place] Radha Sharma UTI symptoms (Primary Dx); [address] Vaginal discharge; [place], [place] [address] Social History Tobacco Use Types Packs/Day Years [...] 12/23/2018 organizations such as hinduism groups, unions, fraternal or athletic groups, or [...] Sign Reading Time Taken Comments Blood Pressure 134/76 08/16/2019 9:11 AM CDT Pulse 84 08/16/2019 9:11 AM CDT Temperature 36.9 ??C (98.5 ??F) 08/16/2019 9:11 AM CDT Respiratory Rate 18 08/16/2019 9:11 AM CDT Oxygen Saturation 97% 08/16/2019 9:11 AM CDT Inhaled Oxygen Concentration - - Weight 82.3 kg (181 lb 7 oz) 08/16/2019 9:11 AM CDT Height 160.2 cm (5' 3.07) 08/16/2019 9:11 AM CDT Body Mass Index 32.07 08/16/2019 9:11 AM CDT documented in this encounter Patient Instructions Patient InstructionsFrances [place] Sharma MD - 08/16/2019 9:00 AM CDT Your urine suggests possible infection. Will await results of your vaginal swab and I will contact you with results. Urine culture is pending. documented in this encounter Progress Notes Radah Sharma MD - 08/16/2019 9:00 AM CDT Estab Patient Visit Subjective Patient ID: Marcial Adams is a 74 y.o. female. Chief Complaint Patient presents with ??? urine symptoms pressure, vaginal drainage: yellow/lt brown, no burning with urination, pain on and off, slow stream HPI Patient is a 74-year-old female with rheumatoid arthritis, suboptimally controlled type 2 diabetes who presents for possible urinary tract infection also vaginal discharge. She says she has had no burning with urination but has had increased frequency in the last day and urgency. She says the vaginal discharge has been for some time but it is occasionally yellow or brown. It is not itchy. She is intermittently sexually active with her . Is no concerns about sexually transmitted infection. Denies fever chills, malaise. Has had UTI in the past with last one in December 2018 which grew E. coli resistant to Bactrim. Shehad an A1c earlier this spring that was 8.5. Her GFR was 40. Is followed by endocrinology. She tells me that she has not wanted to start the medications that were recommended by endocrinology because she is concerned about thyroid cancer since her mom had thyroid surgery. She says her blood sugarshave been doing well on glipizide and Lantus. Current Outpatient Medications on File Prior to Visit Medication Sig Dispense Refill ??? Abatacept (ORENCIA IV) Infuse into a venous catheter every 30 (thirty) days ??? ACCU-CHEK FASTCLIX LANCETS misc Check blood glucose 4 times a day, before each meal and at bedtime 102 each 7 ??? ALPRAZolam (XANAX) 0.5 MG tablet TAKE [...] XL) 10 MG 24 hr tablet Take 2 tablets (20 mg total) by mouth 1 (one) time each day Do not crush, chew, or split. 60 tablet 11 ??? insulin glargine (BASAGLAR KWIKPEN) 100 UNIT/ML injection Inject 17 Units under the skin 1 (one)time each day (Patient taking differently: Inject 18 Units under the skin 1 (one) time each day ) 15mL 3 ??? JANUVIA 50 MG tablet TAKE ONE TABLET BY MOUTH EVERY DAY 90 tablet 0 ??? leflunomide (ARAVA) 20 MG tablet Take 20 mg by mouth every other day ??? levothyroxine (SYNTHROID) 75 MCG tablet Take 1 tablet (75 mcg total) by mouth 1 (one) time each day 90 tablet 0 ??? Multiple Vitamins-Minerals (MULTIVITAMIN ADULT PO) Take by mouth Contains Zinc per Screen Machine Operator. ??? nitroglycerin (NITROSTAT) 0.[address] 0.4 mg under the tongue ??? pen needle, diabetic (1st Tier Unifine Pentips Plus) 31G X 5 MM misc USE TO INJECT INSULIN ONCE A DAY 100 each 3 ??? Polyvinyl Alcohol-Povidone (REFRESH OP) Administer 1 drop into affected eye(s) 3 (three) times aday Dry Eyes ??? rosuvastatin (CRESTOR) 5 MG tablet Take 1 tablet (5 mg total) by mouth 1 (one) time each day Take 1/2 tab at night for cholesterol. 90 tablet 1 ??? abatacept in sodium chloride 0.9 % 100 mL IVPB Infuse into a venous catheter ??? ACCU-CHEK SIDDHARTH PLUS test strip USE TO TEST BLOOD GLUCOSE 3 TIMES A DAY 300 each 3 ??? linaGLIPtin (Tradjenta) 5 MG tablet Take 5 mg by mouth 1 (one) time each day (Patient not taking: Reported on 08/16/2019) 30 tablet 5 ??? Semaglutide,0.25 or 0.5MG/DOS, 2 MG/1.5ML solution pen-injector Inject 0.25 mg under the skin every 7 (seven) days for 28 days, THEN 0.5 mg every 7 (seven) days. (Patient not taking: Reported on 06/13/2019) 4 pen 5 No current facility-administered medications on file prior to visit. Lisinopril; Azathioprine; Azithromycin; Olmesartan; and Statins The following portions of the patient's chart were reviewed in this encounter and updated as appropriate: Tobacco Allergies Meds Review of Systems See HPI. Objective Physical Exam Blood pressure 134/76, pulse 84, temperature 36.9 ??C (98.5 ??F), temperature source Temporal, resp.rate 18, height 1.602 m (5' 3.07), weight 82.3 kg (181 lb 7 oz), SpO2 97 %. Generally she is well-appearing not in acute distress. Heart regular rate and rhythm without murmurs rubs or gallops. Lungs clear to auscultation bilaterally. Abdomen is obese soft nontender nondistended no organomegaly. No CVA tenderness. there is some thinning of the vaginal tissues but no skin breakdown, bleeding, lesion. There is normal-appearing cervix. There is some whitish discharge. Bimanual exam is unremarkable. Urine dipstick is notable for moderate blood, protein, small leukocyte and on microscopy there is white blood cells, red blood cells and epithelial cells with few bacteria. Assessment/Plan Diagnoses and all orders for this visit: UTI symptoms - Add-On Test Request; Future Vaginal discharge - Wet Mount with Rapid Trichomonas (CF,LC,NW,PI,SC,SE,SW and WN only); Future Discussed that her UA and urine microscopy suggest possible urinary tract infection she also has symptoms that are related to vaginal discharge and with the epithelial cells on the microscopy, UA findings could be contaminant. She is hesitant to start antibiotics as she is getting her rheumatoid arthritis medication infusion this she cannot have been on an antibiotic preceding or mediately afterwards. Discussed awaiting urine culture and also wet prep results. I will contact her with results and treatment as indicated. This dictation was created with voice recognition software and therefore may contain errors that went unnoticed. Patient Instructions Your urine suggests possible infection. Will await results of your vaginal swab and I will contact you with results. Urine culture is pending. documented in this encounter Miscellaneous Notes Addendum Note - Danna Interiano RN - 08/16/2019 9:00 AM CDT Addended by: DANNA INTERIANO on: 08/16/2019 10:31 AM Modules accepted: Orders documented in this encounter Plan of Treatment Not on filedocumented as of this encounter Goals Goal Patient Goal Associated Recent Patient-Stated? Author Type Problems Progress Routine Health General No change No Peter Ramesh (02/05/2021 Abbie Murray, 11:19 AM WET END TESTER) RN Note: Formatting of this note is differe nt from the original. Routine Health Management Care Team Patient Care Team: Corrine Vazquez MD as PCP - General ([facility]) Yossi Potts RN as Registered Nurse (Diabetes Education) Abbie Ramesh RN as Blend Plant Operator Future Scheduled Appointments No future appointments. [...] [place] Pneumococcal Vaccine: <64 Complete d OM Pneumococcal Vaccine: 65+ Years Co mpleted HPV Vaccines Aged Out Notes: Due: Urine Protein screening Eye exam AWV A1C Lipid panel documented as of this encounter Procedures Procedure Name Priority Date/Time Associated Diagnosis Comme nts ADD-ON TEST REQUEST Routine 08/16/2019 9:42 AM UTI symptoms R esults for this CDT procedure are i n the results section. documented in this encounter Results (ABNORMAL) Wet Mount with Rapid Trichomonas (CF,LC,NW,PI,SC,SE,SW and WN only) (08/16/2019 10:11 AM CDT) [facility] Method Time Signature Rapid NEGATIVE Negative 08/16/2019 [facility] Trichomonas 10:26 AM [place] Test CDT Yeast, Wet Prep NEGATIVE Negative 08/16/2019 [place] 4:04 PM [facility] Clue Cells, Wet NONE SEEN None Seen 08/16/2019 [place] Prep /hpf 4:04 PM [facility] WBC, Wet Prep MODERATE (A) None Seen 08/16/2019 [place] /hpf 4:04 PM T [facility] Specimen Anatomical Collection Method Collection Time Receive d Time (Source) Location / / Volume Laterality Swab 08/16/2019 10:11 08/16/2019 AM CDT 10:16 AM CDT Radha Sharma MD LAB BODY FLUIDS AND STOOLS O RDERABLES Performing Organization Address City/State/ZIP Code Phon e Number [facility] [address] [place] [address] LABORATORY [facility] [address] [place] [address] Add-On Test Request (08/16/2019 9:42 AM CDT) [facility] Method Time Signature Add-on Testing SEE BELOW 08/16/2019 [place] 1:30 PM T [facility] Comment: Urine culture added to [id number] Specimen Anatomical Collection Method Collection Time Receive d Time (Source) Location / / Volume Laterality 08/16/2019 9:42 08/16/2019 AM CDT 9:42 AM CDT Radha Sharma MD LAB BLOOD ORDERABLES Performing Organization Address City/State/ZIP Code Phon e Number [facility] [address] [place] [address] documented in this encounter Visit Diagnoses Diagnosis UTI symptoms - Primary Vaginal discharge Leukorrhea, not specified as infective Immunization due documented in this encounter Care Teams Helper Animal Laboratory Relationship Specialty Start Date End Date Corrine Vazquez MD PCP - General Family Medicine 07/07/19 08/19/21 [address] [address] [place] [address] documented as of this encounter
--- OUTSIDE RECORDS SUMMARY | 2021-09-05 00:12 | XMS_ITS | Encounter Summary ---
:1945 Author Organization [facility] Address [address] [place] [address] Care Team Providers Name Role Phone Ronak Patel HEAD BANQUET WAITRESS, BUSINESS DEVELOPMENT PROFESSIONAL Primary Care Provider Reason for Visit Reason Onset Date Comments mail lab results 06/21/2019 Encounter Details Date Type Department Care Team Description 06/21/2019 Telephone [place] Adriane Patel, mail lab results [address] HEAD BANQUET WAITRESS, [place], [place] [address] [address] [phone] [place], [place] [address] Social History Tobacco Use Types Packs/Day Years [...] or relatives? How often do you attend oriental orthodox or More than 4 times per year 12/23/2018 mandaen services? Do you belong to any clubs or No 12/23/2018 organizations such as oriental orthodox groups, unions, fraternal or athletic groups, [...] encounter Miscellaneous Notes Telephone Encounter - Rebecca Ibraihm MA - 06/21/2019 10:26 AM CDT Lab results mailed to patient Telephone Encounter - Margareth Sanchez RN - 06/21/2019 10:22 AM CDT Patient requesting lab results from Dr. Stewart be mailed to her. I am not sure if they put these in a letter for the patient or not. Please mail results. Telephone Encounter - Shena Sow - 06/21/2019 9:56 AM CDT Patient asking for her most recent lab testing results be mailed to her. Please mail soon. documented in this encounter Plan of Treatment Not on filedocumented as of this encounter Goals Goal Patient Goal Associated Recent Patient-Stated? Author Type Problems Progress Routine Health General No change No Peter Ramesh (02/05/2021 Abbie Murray, 11:19 AM WILD LIFE PHOTOGRAPHER) RN Note: Formatting of this note is differe nt from the original. Routine Health Management Care Team Patient Care Team: Corrine Vazquez MD as PCP - General ([facility] Medicine) Yossi Potts RN as Registered Nurse (Diabetes Education) Abbie Ramesh RN as Jack Spooler Tender Future Scheduled Appointments No future appointments. Health Maintenance Health Maintenance Topic Date Due Urine Protein Screening 05/31/2020 Lipid Panel 09/05/2020 Glaucoma Screening 67+ Yr 12/25/2020 Ophthalmology Exam 12/25/2020 [facility] Annual Wellness 01/12/2021 Hemoglobin A1C 01/24/2021 Diabetic [...] on filedocumented in this encounter Care Teams Sluice Tender Relationship Specialty Start Date End Date Adriane Patel, HEAD BANQUET WAITRESS, BUSINESS DEVELOPMENT PROFESSIONAL PCP - General 09/22/17 07/06/19 [address] [facility] [place] [address] documented as of this encounter
--- OUTSIDE RECORDS SUMMARY | 2021-09-05 00:12 | XMS_ITS | Encounter Summary ---
:1945 Author Organization [facility] Address [address] [place] [address] Care Team Providers Name Role Phone Lincoln Vazquez MD Primary Care Provider Encounter Details Date Type Department Care Team Description 08/23/2019 Telephone [place] Diabetic Education 2nd Yossi Potts RN Floor [address] [place] [address] [place] [address] [phone] Social History Tobacco Use Types Packs/Day Years [...] or relatives? How often do you attend zoroastrian or More than 4 times per year 12/23/2018 denominational services? Do you belong to any clubs or No 12/23/2018 organizations such as zoroastrian groups, unions, fraternal or athletic groups, or [...] Telephone Encounter - Yossi Potts RN - 08/23/2019 10:45 AM CDT I received a telephone call this morning from the patient. She states that she has been on a antibiotic since . Is now been experiencing some lower blood sugars. Says over the past 4 days: Fastin, 81, 71, 99 ( happened at 4 AM. Patient drank some juice and a glucose tablet then at6 AM result was 103), this morning glucose of 61 (patient again treated with juice and a glucose tablet). Patient notes that 2 days ago she had run low on Basaglar and as result had only 4 units of that (but still had lower blood sugar the next morning). Said that she had taken only 1 glipizide tablet so far today. Patient states that she has been taking: Basaglar (glargine) usually 16 units once a day. Also states that she is taking glipizide 10 mg 2 tablets daily. Says that she has discontinued taking DPP 4 inhibitor because she thought it was ineffective. I recommended the patient decrease her Basaglar dose to 12 units (as I do not have a protocol to make adjustments to the glipizide dose). I recommended if she has further lows to call me so that we can make further adjustments to the insulin dose. documented in this encounter Plan of Treatment Not on filedocumented as of this encounter Goals Goal Patient Goal Associated Recent Patient-Stated? Author Type Problems Progress Routine Health General No change Peter Monzon (02/05/2021 Abbie Murray, 11:19 AM CYTOLOGY TEACHER) RN Note: Formatting of this note is differe nt from the original. Routine Health Management Care Team Patient Care Team: Corrine Vazquez MD as PCP - General ([facility] Medicine) Yossi Potts RN as Registered Nurse (Diabetes Education) Abbie Ramesh RN as Interface Engineer Future Scheduled Appointments No future appointments. Health Maintenance Health Maintenance Topic Date Due Urine Protein Screening 05/31/2020 Lipid Panel 09/05/2020 Glaucoma Screening 67+ Yr 12/25/2020 Ophthalmology Exam 12/25/2020 [facility] Annual Wellness 01/12/2021 Hemoglobin A1C 01/24/2021 Diabetic [...] (02/05/2021 11:17 AM No Abbie Ramesh, RN CYTOLOGY TEACHER) Note: Formatting of this note is [...] on filedocumented in this encounter Care Teams Siebel Crm Developer Relationship Specialty Start Date End Date Corrine Vazquez MD PCP - General Family Medicine 07/07/19 08/19/[address] [place] [address] documented as of this encounter
--- OUTSIDE RECORDS SUMMARY | 2021-09-05 00:12 | XMS_ITS | Encounter Summary ---
:1945 Author Organization [facility] Address [address] [place] [address] Care Team Providers Name Role Phone Lincoln Vazquez MD Primary Care Provider Reason for Visit Consultation (Routine) - Closed Specialty Diagnoses / Procedures Referred By Contact Refer red To Contact Diagnoses Medicare annual wellness visit, initial Corrine Vazquez MD Care Coordination [address] [place], [place] [phone] Referral ID Status Reason Start Date Expiration Date Visits V isits Requested Authorized [id number] Closed Specialty 12/23/2018 99 99 Services Required Encounter Details Date Type Department Care Team Description 07/19/2019 Patient Outreach SE Care Coordination Abbie Ramesh Counseling and coordination of care (Primary Dx); [address] [facility] Terri RN Type 2 diabetes mellitus with other spec ified complication, with long-term current use of insulin ([facility]); [place] [address] [address] Rheumatoid arthritis, involv ing unspecified site, unspecified rheumatoid factor presence ([facility]); [phone] [facility] Rheumatoid arthritis, involving unspecif ied site, unspecified whether rheumatoid factor present ([facility]) [place] [address] Social History Tobacco Use Types [...] More than 4 times per year 12/23/2018 judaism services? Do you belong to any clubs or No 12/23/2018 organizations such as anabaptist groups, unions, fraINCIDE or athletic groups, or school groups? How [...] encounter Progress Notes Abbie Ramesh RN - 07/19/2019 11:00 AM CDT Continued Care Plan - Care Coordination Discussion Date: 07/19/2019 11:40 AM Completed CCM monthly follow up with Marcial She continues to work towards previously set goals. Today's discussion: ??? Reviewed medication list and the need for refills ??? DM: blood sugars running in the 90s low 100s. Adjusting well to Basaglar 18 units increase from a couple weeks ago. Worried about lows overnight. Discussed if readings are low to eat a snack prior to bed. Suggested snack options. Eye exam went well. Occasional blurry vision due to blepharitis. ??? RA: asked cc to call and inquire about safety precautions taken at [facility]. CC called and updated patient on information. Patient feels safer now knowing what is all in place. Follow-up plan: ?? Monthly calls or sooner if needed ?? Reinforced 08/09 nurse line Items for Provider to address: ??? None Goals Today 07/06/19 06/03/19 06/01/19 03/01/19 General ??? Health Maintenance (pt-stated) On track On track On track Health Maintenance Topic Date Due ??? Pneumococcal PPSV23/PCV13 65+ Years / Low and Medium Risk (2 of 2 - PPSV23) 06/22/2015 ??? Diabetic Foot Exam 07/16/2019 ??? Hemoglobin A1C 08/31/2019 ??? Mammogram 11/26/2019 ??? Glaucoma Screening 67+ Yr 12/18/2019 ??? Ophthalmology Exam 12/18/2019 ??? Fall Risk Performed 12/24/2019 ??? [facility] Annual Wellness 12/24/2019 ??? Lipid Panel 03/17/2020 ??? Urine Protein Screening 05/31/2020 ??? Colorectal Cancer Screening: Colonoscopy 05/21/2021 ??? HPV Vaccines Aged Out Lifestyle ??? Keep your medical appointments On track On track On track Future Appointments Date Time Provider Department Center 09/06/2019 8:00 AM [facility] [place] 09/12/2019 10:00 AM [facility] Result Component ? ? Hemoglobin A1c < 7.0 8.5 8.8 Patient will work towards decreasing A1c to 7 within 3 months (Sep 2019) (8.2 05/31/19) a.) Patient will check A1C every three months (Should be less than 7.0) b.) Patient will check blood glucose 2 times daily and report to ambulatory care weekly c.) Patient will take medication as prescribed d.) Patient will exercise for 5 minutes 2 days per week e.) Patient will maintain a food diary f.) Patient will weigh daily and record g.) Patient will follow up with Endocrine Dr Stewart h.) Patient will schedule a foot exam: done i.) Patient will schedule an eye exam: done documented in this encounter Plan of Treatment Not on filedocumented as of this encounter Goals Goal Patient Goal Associated Recent Patient-Stated? Author Type Problems Progress Routine Health General No change No Peter Ramesh (02/05/2021 Abbie Murray, 11:19 AM SURGICAL LEAD) RN Note: Formatting of this note is differe nt from the original. Routine Health Management Care Team Patient Care Team: Corrine Vazquez MD as PCP - General ([facility]) Yossi Potts, RN as Registered Nurse (Diabetes Education) Abbie Ramesh RN as Data Center Manager Future Scheduled Appointments No future appointments. Health Maintenance Health Maintenance Topic Date Due Urine Protein Screening 05/31/2020 Lipid Panel 09/05/2020 Glaucoma Screening 67+ Yr 12/25/2020 Ophthalmology Exam 12/25/2020 [facility] Annual Wellness 01/12/2021 Hemoglobin A1C 01/24/2021 Diabetic Foot Exam 03/16/2021 Colorectal Cancer Screening: Colonoscop y 05/21/2021 Fall Risk Performed 06/05/2021 Mammogram 12/03/2021 COVID-19 Vaccine Completed [facility] Pneumococcal Vaccine: <64 Complete d [facility] Pneumococcal Vaccine: 65+ Years Co mpleted HPV Vaccines Aged Out Notes: Due: Urine Protein screening Eye exam AWV A1C Lipid panel Diabetes Management General No change (02/05/2021 11:17 AM No Abbie Ramesh, RN SURGICAL LEAD) Note: Formatting of this note is differe [...] (HCC) documented in this encounter Care Teams Etl Tester Relationship Specialty Start Date End Date Corrine Vazquez MD PCP - General Family Medicine 07/07/19 08/19/[address] [place] [address] documented as of this encounter
--- OUTSIDE RECORDS SUMMARY | 2021-09-05 00:12 | XMS_ITS | Encounter Summary ---
:1945 Author Organization [facility] Address [address] [place] [address] Care Team Providers Name Role Phone Ronak Patel CONCHE OPERATOR, PAROLE SUPERVISOR Primary Care Provider Reason for Visit Reason Onset Date Comments Med Refill 07/25/2019 Encounter Details Date Type Department Care Team Description 07/25/2019 Refill Kermit Corrine Vazquez, Anemia, unspecified type [address] [facility] [address] [place], [place] [id number] [place] [address] [place] [address] Social History Tobacco Use Types Packs/Day Years [...] More than 4 times per year 12/23/2018 samaritan services? Do you belong to any clubs [...] Encounter - Vero Interiano RN - 07/25/2019 4:41 PM CDT Pt would like Ferrous Sulfate renewed documented in this encounter Plan of Treatment Not on filedocumented as of this encounter Goals Goal Patient Goal Associated Recent Patient-Stated? Author Type Problems Progress Routine Health General No change No Domitila Management (02/05/2021 Abbie Murray, 11:19 AM FRUIT BAR MAKER) RN Note: Formatting of this note is differe nt from the original. Routine Health Management Care Team Patient Care Team: Corrine Vazquez MD as PCP - [facility] Yossi Potts, RN as Registered Nurse (Diabetes Education) Abbie Ramesh, RN as Strategic Buyer Future Scheduled Appointments No future appointments. Health [...] as of this encounter Visit Diagnoses Diagnosis Anemia, unspecified type documented in this encounter Care Teams Packing And Stamping Machine Operator Relationship Specialty Start Date End Date Adriane Patel, CONCHE OPERATOR, PAROLE SUPERVISOR PCP - General Family Medicine 08/20/[address] [place] [address] [facility] [place] [address] documented as of this encounter
--- OUTSIDE RECORDS SUMMARY | 2021-09-05 00:12 | XMS_ITS | Encounter Summary ---
:1945 Author Organization [facility] Address [address] [place] [address] Care Team Providers Name Role Phone Lincoln Vazquez MD Primary Care Provider Reason for Visit Consultation (Routine) - Closed Specialty Diagnoses / Procedures Referred By Contact Refer red To Contact Diagnoses Medicare annual wellness visit, initial Corrine Vazquez MD Care Coordination [address] [place], [place] [phone] Referral ID Status Reason Start Date Expiration Date Visits V isits Requested Authorized [id number] Closed Specialty 12/23/2018 99 99 Services Required Encounter Details Date Type Department Care Team Description 06/03/2019 Patient Outreach SE Care Coordination Abbie Ramesh Counseling and coordination of care (Primary Dx); 210 [facility] Terri RN Type 2 diabetes mellitus with other spec ified complication, with long-term current use of insulin (HCC); [place] [address] [address] Obesity (BMI 30.0-34.9) [phone] [place] [address] Social History Tobacco Use Types [...] More than 4 times per year 12/23/2018 muslim services? Do you belong to any clubs or No 12/23/2018 organizations such as yarsanism groups, unions, Teros or athletic groups, or school groups? How [...] encounter Progress Notes Abbie Ramesh RN - 06/03/2019 12:00 PM CDT Continued Care Plan - Care Coordination Discussion Date: 06/03/2019 12:15 PM Completed CCM monthly follow up with Marcial She continues to work towards previously set goals. Today's discussion: ??? Reviewed medication list and the need for refills ??? Diabetes: blood sugar readings have been running 120s-160s. She states this is mostly due to herdiet. Overall, she feels like things are improving but then she will have some higher numbers and isn't so sure. Disappointed her A1C didn't come down more. Encouraged her to continue working hard on her diet and include some exercise as well. She has been taking Basaglar, Januvia, and glipizide as prescribed. Phone appt with Dr Stewart in a week and a half. ??? Marcial has been staying busy making masks for her family during the Covid pandemic. Her son has been getting groceries for her and her so they don't have to go out. She has had little to noexposure. Follow-up plan: ?? ENDO appt in a week and a half ?? Monthly calls or sooner if needed ?? Reinforced 08/09 nurse line Items for Provider to address: ??? None Goals Today 06/01/19 03/01/19 10/29/18 07/07/18 General ??? Health Maintenance (pt-stated) On track Health Maintenance Topic Date Due ??? Pneumococcal PPSV23/PCV13 65+ Years / Low and Medium Risk (2 of 2 - PPSV23) 06/22/2015 ??? Diabetic Foot Exam 07/16/2019 ??? Lipid Panel 06/16/2019 ??? Hemoglobin A1C 08/31/2019 ??? Mammogram 11/26/2019 ??? Glaucoma Screening 67+ Yr 12/18/2019 ??? Ophthalmology Exam 12/18/2019 ??? Fall Risk Performed 12/24/2019 ??? [facility] Annual Wellness 12/24/2019 ??? Urine Protein Screening 05/31/2020 ??? Colorectal Cancer Screening: Colonoscopy 05/21/2021 ??? HPV Vaccines Aged Out Lifestyle ??? Keep your medical appointments On track Future Appointments Date Time Provider Department Center 06/13/2019 11:00 AM JOSE DE JES[facility] Result Component ? ? Hemoglobin A1c < 7.0 8.5 8.8 8.0 8.7 Patient will work towards decreasing A1c to 7 within 6 months (June 2019) (8.2 05/31/19) a.) Patient will check A1C every three months (Should be less than 7.0) b.) Patient will check blood glucose 2 times daily and report to primary care md weekly c.) Patient will take medication as [...] Monzon (02/05/2021 Abbie Murray, 11:19 AM ENGINEER SYSTEM ADMINISTRATOR) RN Note: Formatting of this note is differe nt from the original. Routine Health Management Care Team Patient Care Team: Corrine Vazquez MD as PCP - General ([facility]) Yossi Potts RN as Registered Nurse (Diabetes Education) Abbie Ramesh RN as Multi Site Leasing Consultant Future Scheduled Appointments No future appointments. Health Maintenance Health Maintenance Topic Date Due Urine Protein Screening 05/31/2020 Lipid Panel 09/05/2020 Glaucoma Screening 67+ Yr 12/25/2020 Ophthalmology Exam 12/25/2020 [facility] Annual Wellness 01/12/2021 Hemoglobin A1C 01/24/2021 Diabetic Foot Exam 03/16/2021 Colorectal Cancer Screening: Colonoscop y 05/21/2021 Fall Risk Performed 06/05/2021 Mammogram 12/03/2021 COVID-19 Vaccine Completed [facility] Pneumococcal Vaccine: <64 Complete d [facility] Pneumococcal Vaccine: 65+ Years Co mpleted HPV Vaccines Aged Out Notes: Due: Urine Protein screening Eye exam AWV A1C Lipid panel Diabetes Management General No change (02/05/2021 11:17 AM No Abbie Ramesh, RN ENGINEER SYSTEM ADMINISTRATOR) Note: Formatting of this note is differe [...] with long-term current use of insulin (HCC) Obesity (BMI 30.0-34.9) documented in this encounter Care Teams Personal Driver Relationship Specialty Start Date End Date Corrine Vazquez MD PCP - General Family Medicine 07/07/19 08/19/21 [address] [place] [address] documented as of this encounter
--- OUTSIDE RECORDS SUMMARY | 2021-09-05 00:12 | XMS_ITS | Encounter Summary ---
:1945 Author Organization [facility] Address [address] [place] [address] Care Team Providers Name Role Phone Lincoln Vazquez MD Primary Care Provider Reason for Visit Consultation (Routine) - Closed Specialty Diagnoses / Procedures Referred By Contact Refer red To Contact Diagnoses Medicare annual wellness visit, initial Corrine Vazquez MD Care Coordination [address] [place], [place] [phone] Referral ID Status Reason Start Date Expiration Date Visits V isits Requested Authorized [id number] Closed Specialty 12/23/2018 99 99 Services Required Encounter Details Date Type Department Care Team Description 08/26/2019 Patient Outreach SE Care Abbie Ramesh and coordination of care (Primary Dx); Aldo Murray RN Type 2 diabetes mellitus with other spec ified complication, with long-term current use of insulin (HCC); [address] [place] [address] [address] Rheumatoid arthritis, involv ing unspecified site, unspecified rheumatoid factor presence (HCC); [place] [address] [facility] Rheumatoid arthritis, involving unspecif ied site, unspecified whether rheumatoid factor present ([facility]); [phone] [place], [place] Mixed hyperlip idemia [address] Social History Tobacco Use Types Packs/Day [...] or relatives? How often do you attend mosque or More than 4 times per year 12/23/2018 taoist services? Do you belong to any clubs or No 12/23/2018 organizations such as mosque groups, unions, fraternal or athletic groups, or [...] encounter Progress Notes Abbie Ramesh RN - 08/26/2019 2:20 PM CDT Continued Care Plan - Care Coordination Discussion Date: 08/26/2019 3:12 PM Completed [facility] monthly follow up with Marcial She continues to work towards previously set goals. Today's discussion: ??? Reviewed medication list and the need for refills ??? Diabetes: has been having a lot of lows in the innovation manager. This AM at 0500, reading was 66 soshe took 1.5 glucose tabs and at 0630, the reading was 90. She has been eating a bedtime snack if her readings are running on the lower side. Discussed adding protein to her snack and she has been doing this. She is currently on an antibiotic until Thursday and thinks that is what is causing the fluctuation in readings. She has cut Basaglar insulin down to 8 units. She was taking 16 units. She also cuther glipizide dose in half. Suggested she talk with Denny Potts again to discuss further medication management. ??? RA: held her infusion treatment while she has infection. Rescheduled for next week. Follow-up plan: ?? Monthly calls or sooner if needed ?? Reinforced 08/09 nurse line Items for Provider to address: ??? None Goals Today 07/19/19 07/06/19 06/03/19 General ??? Diabetes Management [...] 12/18/2019 ??? Fall Risk Performed 12/24/2019 ??? [facility] Annual Wellness 12/24/2019 ??? Lipid Panel [...] 09/12/2019 10:00 AM [facility]SE [facility] Yossi Potts RN - 08/26/2019 2:20 PM CDT 08/26/2019: I talked with the patient via telephone and she repeats the information about her blood sugars and how she treated them (as below). I stated that I thought that patient's decreasing her Basaglar to 8 units was appropriate. Patient's use of glipizide would need to be something her physicians would needto regulate as I have no protocol to adjust oral diabetes medications. I stated if she continues to have low blood sugars her Basaglar may need to be further adjusted. I stated she could call me if shehas questions. documented in this encounter Plan of Treatment Not on filedocumented as of this encounter Goals Goal Patient Goal Associated Recent Patient-Stated? Author Type Problems Progress Routine Health General No change Peter Monzon (02/05/2021 Abbie Murray, 11:19 AM ULTRASOUND TECHNOL) RN Note: Formatting of this note is differe nt from the original. Routine Health Management Care Team Patient Care Team: Corrine Vazquez MD as PCP - General ([facility]) Yossi Potts RN as Registered Nurse (Diabetes Education) Abbie Ramesh RN as Creative Specialist Future Scheduled Appointments No future appointments. Health Maintenance Health Maintenance Topic Date Due Urine Protein Screening 05/31/2020 Lipid Panel 09/05/2020 Glaucoma Screening 67+ Yr 12/25/2020 Ophthalmology Exam 12/25/2020 [facility] Annual Wellness 01/12/2021 Hemoglobin A1C 01/24/2021 Diabetic Foot Exam 03/16/2021 Colorectal Cancer Screening: Colonoscop y 05/21/2021 Fall Risk Performed 06/05/2021 Mammogram 12/03/2021 COVID-19 Vaccine Completed [facility] Pneumococcal Vaccine: <64 Complete d [facility] Pneumococcal Vaccine: 65+ Years Co mpleted HPV Vaccines Aged Out Notes: Due: Urine Protein screening Eye exam AWV A1C Lipid panel Diabetes Management General No change (02/05/2021 11:17 AM Abbie Monzon, RN ULTRASOUND TECHNOL) Note: Formatting of this note is differe [...] hyperlipidemia documented in this encounter Care Teams Manufacturing Machine Operator Relationship Specialty Start Date End Date Corrine Vazquez MD PCP - General Family Medicine 07/07/19 08/19/[address] [place] [address] documented as of this encounter
--- OUTSIDE RECORDS SUMMARY | 2021-09-05 00:12 | XMS_ITS | Encounter Summary ---
:1945 Author Organization [facility] Address [address] [place] [address] Care Team Providers Name Role Phone Lincoln Vazquez MD Primary Care Provider Reason for Visit Reason Onset Date Comments RX 08/24/2019 Encounter Details Date Type Department Care Team Description 08/24/2019 Telephone [place] Corrine Vazquez MD RX [address] [place], [place] [address] [place], [place] [phone] (Wo rk) Social History Tobacco Use Types [...] Telephone Encounter - Margareth Sanchez RN - 08/24/2019 12:48 PM CDT Patient informed. Telephone Encounter - Corrine Vazquez MD - 08/24/2019 12:38 PM CDT Let Marcial know that I have sent to [facility] for a different antibiotic call Ceftin (cefuroxamine) for 5 days. If this is too expensive she should not quill picking machine operator but then let us know. She should not take any more tetracycline Telephone Encounter - Margareth Sanchez RN - 08/24/2019 12:16 PM CDT Patient is taking Tetracycline and she reports having diarrhea since starting this medication. The pharmacy was only able to fill 1/2 the Rx. She needs to quill picking machine operator the second half today and she questions if she shouldn't be on something different due to the diarrhea Telephone Encounter - Phoebe Donohue - 08/24/2019 10:46 AM CDT Patient called and would like to hear from a nurse prior to getting second half of RX filled. Telephone Encounter - Phoebe Donohue - 08/24/2019 8:16 AM CDT Patient would like to speak to a nurse regarding the side effects of Tetracycline. Please call her at [phone]. documented in this encounter Plan of Treatment Not on filedocumented as of this encounter Goals Goal Patient Goal Associated Recent Patient-Stated? Author Type Problems Progress Routine Health General No change No Domitila, Management (02/05/2021 Abbie Murray, 11:19 AM DAIRY FEED SALES CONSULTANT) RN Note: Formatting of this note is differe nt from the original. Routine Health Management Care Team Patient Care Team: Corrine Vazquez MD as PCP - [facility] Yossi Potts, RN as Registered Nurse (Diabetes Education) Abbie Ramesh, ERA as Work Measurement Engineer Future Scheduled Appointments No future appointments. [...] as of this encounter Visit Diagnoses Diagnosis Acute cystitis without hematuria - Prima ry documented in this encounter Care Teams Airport Electrician Relationship Specialty Start Date End Date Corrine Vazquez MD PCP - General Family Medicine 07/07/19 08/19/[address] [place] [address] documented as of this encounter
--- OUTSIDE RECORDS SUMMARY | 2021-09-05 00:12 | XMS_ITS | Encounter Summary ---
:1945 Author Organization [facility] Address [address] [place] [address] Care Team Providers Name Role Phone [place] Vazquez MD Primary Care Provider Reason for Visit Consultation (Routine) - Closed Specialty Diagnoses / Procedures Referred By Contact Refer red To Contact Diagnoses Medicare annual wellness visit, initial Corrine Vazquez MD Care Coordination [address] [place], [place] [id number] Referral ID Status Reason Start Date Expiration Date Visits V isits Requested Authorized [id number] Closed Specialty 12/23/2018 99 99 Services Required Encounter Details Date Type Department Care Team Description 07/06/2019 Patient Outreach SE Care Coordination Abbie Ramesh Counseling and coordination of care (Primary Dx); [address] [facility] Terri RN Type 2 diabetes mellitus with other spec ified complication, with long-term current use of insulin ([facility]); [place] [address] [address] Rheumatoid arthritis, involv ing unspecified site, unspecified rheumatoid factor presence ([facility]); [phone] [facility] Rheumatoid arthritis, involving unspecif ied site, unspecified whether rheumatoid factor present ([facility]) [place] [address] Social History Tobacco Use Types [...] 12/23/2018 organizations such as presybeterian groups, unions, [employer] or athletic groups, or school groups? [...] encounter Progress Notes Abbie Ramesh RN - 07/06/2019 4:00 PM CDT Continued Care Plan - Care Coordination Discussion Date: 07/06/2019 4:17 PM Completed CCM monthly follow up with Marcail She continues to work towards previously set goals. Today's discussion: ??? Reviewed medication list and the need for refills ??? Diabetes: states blood sugars have been running a little higher lately-in the upper 100s. Telephone visit with Denny Potts in Diabetes Education last week and adjusted insulin up to 18 units Basaglar. She is also taking glipizide and Januvia as prescribed. Discussed issues with her eyes. She has scheduled an appt with ophthalmology for the first of July. She has been trying to stay active as much as she can. ?? RA: discussed her concerns about COVID when going to get RA infusion. She states nobody was wearing a mask when she went and felt very uncomfortable. Discussed handwashing, keeping her distance, andcontinuing to wear her mask. Also discussed if it was possible for her to ask to be in a separate room or ask the nurse there to wear a mask. She will call and inquire about these things prior to her next infusion. Follow-up plan: ?? Monthly calls or sooner if needed ?? Reinforced 08/09 nurse line Items for Provider to address: ??? Goals 07/06/19 06/03/19 06/01/19 03/01/19 10/29/18 General ??? Health Maintenance (pt-stated) On track On track Health Maintenance Topic Date Due ??? Pneumococcal PPSV23/PCV13 65+ Years / Low and Medium Risk (2 of 2 - PPSV23) 06/22/2015 ??? Diabetic Foot Exam 07/16/2019 ??? Hemoglobin A1C 08/31/2019 ??? Mammogram 11/26/2019 ??? Glaucoma Screening 67+ Yr 12/18/2019 ??? Ophthalmology Exam 12/18/2019 ??? Fall Risk Performed 12/24/2019 ??? [facility] Annual Wellness 12/24/2019 ??? Lipid Panel 03/17/2020 ??? Urine Protein Screening 05/31/2020 ??? Colorectal Cancer Screening: Colonoscopy 05/21/2021 ??? HPV Vaccines Aged Out Lifestyle ??? Keep your medical appointments On track On track Future Appointments Date Time Provider Department Center 09/06/2019 8:00 AM [facility] [place] 09/12/2019 10:00 AM [facility] Result Component ? ? Hemoglobin A1c < 7.0 8.5 8.8 8.0 Patient will work towards decreasing A1c to 7 within 3 months (Sep 2019) (8.2 05/31/19) a.) Patient will check A1C every three months (Should be less than 7.0) b.) Patient will check blood glucose 2 times daily and report to health care coach weekly c.) Patient will take medication as [...] Problems Progress Routine Health General No change Pteer Monzon (02/05/2021 Abbie Murray, 11:19 AM POST ANESTHESIA CARE UNIT NURSE) RN Note: Formatting of this note is differe nt from the original. Routine Health Management Care Team Patient Care Team: Corrine Vazquez MD as PCP - General (F amily Medicine) Yossi Potts, RN as Registered Nurse (Diabetes Education) Abbie Ramesh, RN as Dispensary Technician Future Scheduled Appointments No future appointments. [...] (02/05/2021 11:17 AM No Abbie Ramesh, RN POST ANESTHESIA CARE UNIT NURSE) Note: Formatting of this note is differe [...] (HCC) documented in this encounter Care Teams Boiler Plant Operator Relationship Specialty Start Date End Date Corrine Vazquez MD PCP - General Family Medicine 07/07/19 08/19/21 [address] [facility] [address] [place] [address] documented as of this encounter
--- OUTSIDE RECORDS SUMMARY | 2021-09-05 00:12 | XMS_ITS | Encounter Summary ---
:1945 Author Organization [facility] Address [address] [place] [address] Care Team Providers Name Role Phone [place] Vazquez MD Primary Care Provider Reason for Visit Reason Comments Med Refill Encounter Details Date Type Department Care Team Description 07/14/2019 Refill SE Endocrinology Bacilio Stewart, Type 2 diabetes mellitus [address] [employer] with hyperglycemia, [place] [address] [address] unspecified whether long [phone] [place] term insulin [facility] [id number] (Primary Dx) Social History Tobacco Use Types [...] or relatives? How often do you attend yazidi or More than 4 times per year 12/23/2018 sikhism services? Do you belong to any clubs or No 12/23/2018 organizations such as yazidi groups, unions, fraternal or athletic groups, or [...] this encounter Miscellaneous Notes Telephone Encounter - Ifeoma A Jl, WATER SOFTENER SERVICER - 07/18/2019 1:19 PM CDT Last visit in provider department: 06/13/2019 Last visit requested medication was discussed: 06/13/2019 Upcoming appointment with provider: 09/12/2019 Last Rx: 07/28/2017 # 90, 3 refills Requested Prescriptions Pending Prescriptions Disp Refills ??? JANUVIA 50 MG tablet [Pharmacy Med Name: JANUVIA 50MG TABS] 90 tablet 3 Sig: TAKE ONE TABLET BY MOUTH EVERY DAY Labs: Component Latest Ref Rng & Units 06/01/2019 Hemoglobin A1C 4.0 - 5.6 % A1C 8.5 (H) Patient has pending labs Vitals: BP Readings from Last 2 Encounters: 03/07/19 128/70 12/23/18 152/82 documented in this encounter Plan of Treatment Not on filedocumented as of this encounter Goals Goal Patient Goal Associated Recent Patient-Stated? Author Type Problems Progress Routine Health General No change No Peter Ramesh (02/05/2021 Abbie Murray, 11:19 AM PIPE FITTER AMMONIA) RN Note: Formatting of this note is differe nt from the original. Routine Health Management Care Team Patient Care Team: Corrine Vazquez MD as PCP - General (F amily Medicine) Yossi Potts, RN as Registered Nurse (Diabetes Education) Abbie Ramesh RN as Mink Rancher Future Scheduled Appointments No future appointments. Health [...] Diagnoses Diagnosis Type 2 diabetes mellitus with hyperglyce luis, unspecified whether usp insulin use (HCC) - Primary documented in this encounter Care Teams Tram Driver Relationship Specialty Start Date End Date Corrine Vazquez MD PCP - General Family Medicine 07/07/19 08/19/[address] [place] [address] documented as of this encounter
--- OUTSIDE RECORDS SUMMARY | 2021-09-05 00:12 | XMS_ITS | Encounter Summary ---
:1945 Author Organization [facility] Address [address] [place] [address] Care Team Providers Name Role Phone Jaymie Vazquez MD Primary Care Provider Reason for Visit Reason Onset Date Comments Diabetes 09/06/2019 Encounter Details Date Type Department Care Team Description 09/06/2019 Telephone [place] Corrine Vazquez MD Diabetes [address] [place], [place] [address] [place], [place] [phone] (Wo rk) Social History Tobacco Use Types [...] or relatives? How often do you attend episcopalian or More than 4 times per year 12/23/2018 alevism services? Do you belong to any clubs or No 12/23/2018 organizations such as episcopalian groups, unions, fraternal or athletic groups, or [...] this encounter Miscellaneous Notes Telephone Encounter - D. Jaymie Vazquez MD - 09/06/2019 3:47 PM CDT Noted jaymie Telephone Encounter - Margareth Sanchez RN - 09/06/2019 12:34 PM CDT Patient informed. She will have her scheduled follow up with Dr. Stewart on 09/11 and then she will cometo you for her next follow up diabetes. Telephone Encounter - Luciana Albarado - 09/06/2019 8:50 AM CDT Pt returned call clinic. Telephone Encounter - Margareth Sanchez RN - 09/06/2019 8:47 AM CDT LMTC Telephone Encounter - Corrine Vazquez MD - 09/06/2019 8:36 AM CDT Let Marcial know that I can certainly manage her diabetes for her. Since these current lab tests were ordered by Dr. Stewart he will get these results and will possible suggest changes bases upon the results. However, I will also look at the results. When Marcial is next due for labs then I will order these labs and then have her come in for review at that time which would be around in 4-6 months. If you could call the Endo Clinic at [facility] and let them know that secondary to travel and distance Marcial will be following up with us in our clinic and we will contact Dr. Stewart for advice or as needed referback down to him for his expertise as needed. Telephone Encounter - Margareth Sanchez RN - 09/06/2019 8:31 AM CDT Please review request. Telephone Encounter - Hali Cormier MA - 09/06/2019 8:21 AM CDT Patient came in for lab work today and is wondering if Dr. Vazquez can watch over my diabetes instead of going to [place]. Also patient would like her lab results from today mailed to her when they return. documented in this encounter Plan of Treatment Not on filedocumented as of this encounter Goals Goal Patient Goal Associated Recent Patient-Stated? Author Type Problems Progress Routine Health General No change Hailee Ramesh, Peter (02/05/2021 Abbie Murray, 11:19 AM REAL ESTATE LOAN PROCESSOR) RN Note: Formatting of this note is differe nt from the original. Routine Health Management Care Team Patient Care Team: Corrine Vazquez MD as PCP - General ([facility]) Yossi Potts RN as Registered Nurse (Diabetes Education) Abbie Ramesh RN as Chainstitch Sewing Machine Operator Future Scheduled Appointments No future appointments. Health Maintenance Health Maintenance Topic Date Due Urine Protein Screening 05/31/2020 Lipid Panel 09/05/2020 Glaucoma Screening 67+ Yr 12/25/2020 Ophthalmology Exam 12/25/2020 [facility] Annual Wellness 01/12/2021 Hemoglobin A1C 01/24/2021 Diabetic Foot Exam 03/16/2021 Colorectal Cancer Screening: Colonoscop y 05/21/2021 Fall Risk Performed 06/05/2021 Mammogram 12/03/2021 COVID-19 Vaccine Completed [facility] Pneumococcal Vaccine: <64 Complete d [facility] Pneumococcal Vaccine: 65+ Years Co mpleted HPV Vaccines Aged Out Notes: Due: Urine Protein screening Eye exam AWV A1C Lipid panel Diabetes Management General No change (02/05/2021 11:17 AM Abbie Monzon, RN REAL ESTATE LOAN PROCESSOR) Note: Formatting of this note is differe [...] on filedocumented in this encounter Care Teams Music Professor Relationship Specialty Start Date End Date Corrine Vazquez MD PCP - General Family Medicine 07/07/19 08/19/[address] [place] [address] documented as of this encounter
--- OUTSIDE RECORDS SUMMARY | 2021-09-05 00:12 | XMS_ITS | Encounter Summary ---
:1945 Author Organization [facility] Address [address] [place] [address] Care Team Providers Name Role Phone Ronak Patel MEAL COOKER, MECHANIC WELDER TRUCK DRIVER Primary Care Provider Encounter Details Date Type Department Care Team Description 06/22/2019 Refill [place] Adriane Patel, Hypothyroidism, [address] MEAL COOKER, MECHANIC WELDER TRUCK DRIVER unspecified type James Pierre [place] [address] [address] [facility] [address] [phone] [place], [place] [address] Social History Tobacco Use [...] or relatives? How often do you attend voodoo or More than 4 times per year 12/23/2018 judaism services? Do you belong to any clubs or No 12/23/2018 organizations such as voodoo groups, unions, fraternal or athletic groups, or [...] Telephone Encounter - Margareth Sanchez RN - 06/22/2019 12:44 PM CDT Patient informed. Telephone Encounter - Corrine Vazquez MD - 06/22/2019 12:31 PM CDT Let Lurene know that in reviewing Dr. Stewart's notes that it appears that she should actually be taking one FULL pill of Crestor 5 mg per day. This is what I would have her do at this time. Any questions let me know. Telephone Encounter - Margareth Sanchez RN - 06/22/2019 10:40 AM CDT Patient informed. She had a question regarding her crestor medication. She is confused by the instructions on her most recent Rx from Dr. Stewart and she wanted you to review them as well and let her knowwhat she should be taking. Patient also mentioned that if she to take 2.5mg they are hard to cut inhalf and she wanted to know if she could take one tablet every other day if she is in fact to take 2.5mg daily. Telephone Encounter - Margareth Sanchez RN - 06/22/2019 9:36 AM CDT Please review medication request. Telephone Encounter - Mely Aviles - 06/22/2019 9:25 AM CDT Please refill to [facility]. documented in this encounter Plan of Treatment Not on filedocumented as of this encounter Goals Goal Patient Goal Associated Recent Patient-Stated? Author Type Problems Progress Routine Health General No change No Roschen, Management (02/05/2021 Abbie Murray, 11:19 AM OUTPATIENT SCHEDULER) RN Note: Formatting of this note is differe nt from the original. Routine Health Management Care Team Patient Care Team: Corrine Vazquez MD as PCP - General ([facility] Medicine) Yossi Potts, RN as Registered Nurse (Diabetes Education) Abbie Ramesh, RN as Manager Business Development Hospice Future Scheduled Appointments No future appointments. Health [...] type documented in this encounter Care Teams Screw Machine Set Up Operator Relationship Specialty Start Date End Date Adriane Patel, MEAL COOKER, MECHANIC WELDER TRUCK DRIVER PCP - General 09/22/17 07/06/19 [address] [facility] [place] [address] documented as of this encounter
--- OUTSIDE RECORDS SUMMARY | 2021-09-05 00:13 | XMS_ITS | Encounter Summary ---
:1945 Author Organization [facility] Address [address] [place] [address] Care Team Providers Name Role Phone Ronak Patel OIL WELL FISHING TOOL OPERATOR, ARMORED TRUCK DRIVER Primary Care Provider Reason for Visit Reason Comments UTI Encounter Details Date Type Department Care Team Description 12/07/2018 Office Visit Dandy Fernándezine Urinary tract infection with out hematuria, site unspecified (Primary Dx); [address], LEONARD RESENDEZ Upper respiratory tract infection, unspe cified type [place] [address] [facility] [address] [place] [address] Social History Tobacco Use Types Packs/Day Years [...] More than 4 times per year 12/23/2018 anabaptism services? Do you belong to any clubs [...] Sign Reading Time Taken Comments Blood Pressure 130/66 12/07/2018 2:28 PM CDT Pulse 79 12/07/2018 2:28 PM CDT Temperature 35.6 ??C (96.1 ??F) 12/07/2018 2:28 PM CDT Respiratory Rate 16 12/07/2018 2:28 PM CDT Oxygen Saturation 98% 12/07/2018 2:28 PM CDT Inhaled Oxygen Concentration - - Weight 84.1 kg (185 lb 6.5 oz) 12/07/2018 2:28 PM CDT Height 161.5 cm (5' 3.58) 12/07/2018 2:28 PM CDT Body Mass Index 32.24 12/07/2018 2:28 PM CDT documented in this encounter Patient Instructions Patient InstructionsChgarfield Patel APRN, CNP - 12/07/2018 2:20 PM CDT Take keflex 500 mg three times per day x 7 days documented in this encounter Progress Notes Adriane Patel APRN, CNP - 12/07/2018 2:20 PM CDT Estab Patient Visit Subjective Patient ID: Marcial Adams is a 73 y.o. female presenting for the following concerns. Chief Complaint Patient presents with ??? UTI HPI: The patient is a pleasant 73 y.o. year old female presenting ambulatory to the clinical setting concerned she has a UTI. The patient reports she has had pain at the end of urination, for the past 3 days, which is not necessarily worsening. The patient became concerned last evening when she developed urinary frequency, going every hour all night long, with associated urgency. No hematuria. The patientreports she has had urinary incontinence, which is not worsening. The patient reports these are her typical UTIs symptoms, having more UTIs in the past 2 years. The patient reports when she has a UTI her hands will hurt, which she has developed, along with a funny feeling in her arms. The patient doeshave rheumatoid arthritis and is under the care of a sterile processing technologist. No fever, no chills. No nausea,vomiting and/or diarrhea. No headache. The patient continues to recover from a sinus infection after completing antibiotics. She felt she had improvement with her symptoms, while being on the antibiotic, but after completing it, she feels her symptoms are worsening. She reports she continues to have nasal drainage, nasal congestion and mattering eyes. The patient denies any change in her vision; however, she [place] have blurry vision when the drainage is significant. The patient reports her eyes are puffy, gunky, and mattered shut in the morning. The patient has been evaluated and treated with oral antibiotics and 2 different eyedrops, without complete alleviation of her symptoms. ROS: GENERAL: No fever, no chills. INTEGUMENTARY: See HPI. The patient has a lesion in her lower sarah area she first noticed a few daysago, does not have complete visualization of this area, and is requesting to have this examined EYES: The patient continues to have watery, mattering eyes for the past several weeks. NOSE: See HPI. The patient has had nasal congestion and nasal drainage for couple of weeks, which improved initially on antibiotic therapy, but is no longer improved. GASTROINTESTINAL: No nausea, vomiting, and/or diarrhea. GENITOURINARY: See HPI. The patient reports she has had dysuria at the end of urination for the past3 days, urinary frequency, voiding every hour last night, urinary urgency without hematuria. The patient does have urinary incontinence which is not new or worsening. ENDOCRINOLOGY: See HPI. The patient reports her blood sugars have been stable. MUSCULOSKELETAL: The patient does have a history of rheumatoid arthritis and is under the care of a sterile processing technologist in the [facility]. The following portions of the patient's chart were reviewed in this encounter and updated as appropriate: Tobacco Allergies Meds Problems Med Hx Surg Hx Fam Hx Current Outpatient Medications: ??? Abatacept (ORENCIA IV), Infuse into a venous catheter every 30 (thirty) days, Disp: , Rfl: ??? ACCU-CHEK SIDDHARTH PLUS test strip, USE TO TEST BLOOD GLUCOSE 3 TIMES A DAY, Disp: 300 each, Rfl: 3 ??? ACCU-CHEK FASTCLIX LANCETS [facility], Check blood glucose 4 times a day, before each meal and at bedtime, Disp: 102 each, Rfl: 7 ??? ferrous sulfate 325 (65 Fe) MG tablet, Take 1 tablet (325 mg total) by mouth 1 (one) time each day with breakfast, Disp: 90 tablet, Rfl: 3 ??? glipiZIDE (GLUCOTROL) 10 MG tablet, Take 1 tablet (10 mg total) by mouth 2 (two) times a day before meals, Disp: 180 tablet, Rfl: 3 ??? insulin glargine (BASAGLAR KWIKPEN) 100 UNIT/ML injection, Inject 15 Units under the skin 1 (one) time each day, Disp: 15 mL, Rfl: 3 ??? leflunomide (ARAVA) 20 MG tablet, Take 20 mg by mouth every other day , Disp: , Rfl: ??? levothyroxine (SYNTHROID, LEVOTHROID) 75 MCG tablet, TAKE ONE TABLET BY MOUTH DAILY, Disp: 90 tablet, Rfl: 3 ??? nitroglycerin (NITROSTAT) 0.4 MG SL tablet, Place 0.4 mg under the tongue, Disp: , Rfl: ??? pen needle, diabetic 31G X 5 MM misc, Use to inject insulin once a day, Disp: 100 each, Rfl: 3 ??? rosuvastatin (CRESTOR) 5 MG tablet, Take 0.5 tablets by mouth 1 (one) time each day, Disp: , Rfl: ??? SITagliptin (JANUVIA) 50 MG tablet, Take 1 tablet (50 mg total) by mouth 1 (one) time each day,Disp: 90 tablet, Rfl: 3 ??? cephalexin (KEFLEX) 500 MG capsule, Take 1 capsule (500 mg total) by mouth 3 (three) times a day for 7 days, Disp: 21 capsule, Rfl: 0 ??? erythromycin (ROMYCIN) 5 MG/GM ophthalmic ointment, Apply to affected eye(s) 4 (four) times a day for 7 days, Disp: 3.5 g, Rfl: 0 Objective Visit Vitals BP 130/66 (BP Location: Left arm, Patient Position: Sitting) Pulse 79 Temp (!) 35.6 ??C (96.1 ??F) (Temporal) Resp 16 Ht 1.615 m (5' 3.58) Wt 84.1 kg (185 lb 6.5 oz) SpO2 98% BMI 32.24 kg/m?? Smoking Status Never Smoker BSA 1.94 m?? GENERAL: The patient is alert, orientated, and in no apparent distress. HEENT: Head normocephalic. The patient sounds nasally congested. Eyes - pupils round and reactive tolight. Sclera reddened bilaterally, no evidence of exudate. 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 GASTROENTEROLOGY: Abdomen is soft, no organomegaly, positive bowel sounds. GENITOURINARY: Slight suprapubic tenderness with palpation. The patient denies any CVA tenderness. DIAGNOSTICS: Urinalysis and urine culture Lab on 12/07/2018 Component Date Value Ref Range Status ??? Type 12/07/2018 CLEAN CATCH Final ??? Color, Urine 12/07/2018 YELLOW YELLOW Final ??? Clarity, Urine 12/07/2018 CLEAR CLEAR Final ??? Glucose, Urine 12/07/2018 100* NEGATIVE mg/dL Final ??? Bilirubin, Urine 12/07/2018 NEGATIVE NEGATIVE Final ??? Ketones, Urine 12/07/2018 NEGATIVE NEGATIVE mg/dL Final ? ? Specific [place], Urine 12/07/2018 1.020 1.000 ->=1.030 Final ??? Blood, Urine 12/07/2018 MODERATE* NEGATIVE Final ??? pH, Urine 12/07/2018 5.5 5.0 - 7.0 Final ??? Protein, Urine 12/07/2018 30* NEGATIVE-TRACE mg/dL Final ??? Urobilinogen, Urine 12/07/2018 0.2 0.2 - 1.0 E.U./dL Final ??? Nitrite, Urine 12/07/2018 NEGATIVE NEGATIVE Final ??? Leukocytes, Urine 12/07/2018 TRACE* NEGATIVE Final ? ? Urine Culture 12/07/2018 <10,000 cfu/ml No further ID. Final ??? Casts, urine 12/07/2018 NONE SEEN 0-2 Hyaline /lpf Final ??? Significant casts, urine 12/07/2018 NONE SEEN None Seen /lpf Final ??? RBC, Urine 12/07/2018 4-10* 0 - 3 /hpf Final ??? WBC, Urine 12/07/2018 0-3 /hpf Final ??? Squamous Epithelial, Urine 12/07/2018 1+* Few /lpf Final ??? Trans Epithelial, Urine 12/07/2018 NONE SEEN 0 - 3 /hpf Final ??? Renal Tubular Cells, Urine 12/07/2018 NONE SEEN 0 - 1 /hpf Final ??? Bacteria, Urine 12/07/2018 FEW None Seen /hpf Final Assessment/Plan Marcial was seen today for uti. Diagnoses and all orders for this visit: Urinary tract infection without hematuria, site unspecified (Primary) - Urinalysis with reflex microscopic (clean catch); Future - Urine culture (clean catch); Future - cephalexin (KEFLEX) 500 MG capsule; Take 1 capsule (500 mg total) by mouth 3 (three) times a day for 7 days Upper respiratory tract infection, unspecified type Discussed the plan of care with the patient. Prescribed Keflex 500 mg 3 times a day for 7 days, she should increase her fluids, including cranberry juice (low sugar). If she develops a fever, nausea, vomiting or increased abdominal discomfort, she should notifying us or be evaluated emergently.The patient should be evaluated by her eye doctor if she continues to have a reddened sclera. The patient benotified of urine culture results. The patient agrees and understands this plan of care. Adriane Patel APRN, CNP documented in this encounter Plan of Treatment Not on filedocumented as of this encounter Results Urine culture (clean catch) (12/07/2018 2:55 PM CDT) [employer] Method Time Signature Urine Culture <10,000 12/08/2018 [facility] cfu/ml No 12:56 PM CDT [facility] further ID. LABORATORY Specimen Anatomical Collection Method Collection Time Receive d Time (Source) Location / / Volume Laterality Urine, Clean 12/07/2018 2:55 12/08/2018 Catch PM CDT 12:21 PM CDT Narrative [facility] - 11/17 12:56 PM CDT Patient does not have an Amoxicillin or PCN allergy Adriane Patel APRN, CNP LAB MICROBIOLOGY - GENERA L ORDERABLES Performing Organization Address City/State/ZIP Code Phon e Number [facility] [address] [place] [address] (ABNORMAL) Urinalysis with reflex microscopic (clean catch) (12/07/2018 2:55 PM CDT) Patholo gist Method Time Signature Type CLEAN CATCH 12/08/2018 [facility] 9:29 AM CDT [place] Color, Urine YELLOW YELLOW 12/08/2018 [facility] 9:29 AM CDT [place] Clarity, CLEAR CLEAR 12/08/2018 [facility] Urine 9:29 AM CDT [place] Glucose, 100 (A) NEGATIVE 12/08/2018 [facility] Urine mg/dL 9:29 AM CDT [place] Bilirubin, NEGATIVE NEGATIVE 12/08/2018 [facility] Urine 9:29 AM CDT [place] Ketones, NEGATIVE NEGATIVE 12/08/2018 [facility] Urine mg/dL 9:29 AM CDT [place] Specific 1.020 1.000 12/08/2018 [facility] [place], ->=1.030 9:29 AM CDT [place] Urine Blood, Urine MODERATE (A) NEGATIVE 12/08/2018 [facility] 9:29 AM CDT [place] pH, Urine 5.5 5.0 - 7.0 12/08/2018 [facility] 9:29 AM CDT [place] Protein, 30 (A) NEGATIVE-TRA 12/08/2018 [facility] Urine CE mg/dL 9:29 AM CDT [place] Urobilinogen, 0.2 0.2 - 1.0 12/08/2018 [facility] Urine E.U./dL 9:29 AM CDT [place] Nitrite, NEGATIVE NEGATIVE 12/08/2018 [facility] Urine 9:29 AM CDT [place] Leukocytes, TRACE (A) NEGATIVE 12/08/2018 [facility] Urine 9:29 AM CDT [place] Specimen Anatomical Collection Method Collection Time Receive d Time (Source) Location / / Volume Laterality Urine (Urine, 12/07/2018 2:55 12/07/2018 Clean Catch) PM CDT 2:56 PM CDT Adriane Patel APRN, CNP LAB URINE ORDERABLES Performing Organization Address City/State/ZIP Code Phon e Number [facility] [place] [address] [place] [address] documented in this encounter Visit Diagnoses Diagnosis Urinary tract infection without hematuri a, site unspecified - Primary Upper respiratory tract infection, unspe cified type Urinary tract infection without hematuri a, site unspecified documented in this encounter Care Teams Sheet Metal Duct Worker Supervisor Relationship Specialty Start Date End Date Adriane Patel APRN, LEONARD PCP - General 09/22/17 07/06/19 [address] [place], [place] [address] documented as of this encounter
--- OUTSIDE RECORDS SUMMARY | 2021-09-05 00:13 | XMS_ITS | Encounter Summary ---
:1945 Author Organization [facility] Address [address] [place] [address] Care Team Providers Name Role Phone Ronak Patel CONSERVATION TECHNICIAN, MATERIAL SPECIALIST Primary Care Provider Reason for Visit Consultation (Routine) - Closed Specialty Diagnoses / Procedures Referred By Contact Refer red To Contact Diagnoses Medicare annual wellness visit, initial Corrine Vazquez MD Care Coordination [address] [place] [address] [place] [address] 5 [phone] Referral ID Status Reason Start Date Expiration Date Visits V isits Requested Authorized [id number] Closed Specialty 12/23/2018 99 99 Services Required Encounter Details Date Type Department Care Team Description 01/24/2019 Patient Outreach SE Care Coordination Corrine Vazquez MD [address] [place] [phone] Counseling and coordination of care (Terrie salcedo Dx); [address] [place] [address] Abbie Ramesh RN [address] [place] [phone] 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 She continues to work towards previously set goals. Today's discussion: ??? Spoke to Marcial via telephone. Discussed in great length regarding her eye issues. She has seen several different providers about it and is confused about what to do. She saw Dr. Hadley last and was instructed to do warm eye washes with baby shampoo twice a day and use Refresh eye drops 3 times per day. She states it has been a little better since doing this but she feels like it should be moreimproved by now. She has several different eye drops and is wondering if she should start one of those drops again. ??? Spoke to Dr Hadley's office and discussed Niurkaclemencia's condition. She recommended Marcial continue with the eye washes and Refresh as recommended per Dr Hadley. She also states the patient can follow up sooner than the recommended 3 months. ??? Called Marcial back after speaking to Dr. Hadley's office. Explained everything that was discussed. She had a better understanding of treatment plan and what her condition entails. She also has already started taking fish oil as recommended as well. Her main concern continues to be the blurry/fuzzy and difficulty with focusing vision she has been experiencing. Recommend she follow up sooner withDr Hadley to discuss these issues further. ??? Marcial states she spoke to Denny Potts from diabetes education and was instructed to increase herLantus to 17 units. She has just started this today. Her blood sugar this morning was 153. Follow-up plan: ??? Follow up with Dr Hadley regarding blepharitis ??? Continue eye washes 2x day and Refresh 3x per day ??? Continue monitoring blood sugars Items for Provider to address: ??? None Goals 10/29/18 07/07/18 06/24/18 05/24/18 04/22/18 General ??? Health Maintenance (pt-stated) Health Maintenance Topic Date Due ??? Pneumococcal PPSV23/PCV13 65+ Years / Low and Medium Risk (2 of 2 - PPSV23) 06/22/2015 ??? Lipid Panel 01/28/2019 ??? Hemoglobin A1C 01/28/2019 ??? Diabetic Foot Exam 07/16/2019 ??? Urine Protein Screening 08/28/2019 ??? Mammogram 11/26/2019 ??? Glaucoma Screening 67+ Yr 12/18/2019 ??? Ophthalmology Exam 12/18/2019 ??? Fall Risk Performed 12/24/2019 ??? [facility] [place] Wellness 12/24/2019 ??? Colorectal Cancer Screening: Colonoscopy 05/21/2021 Lifestyle ??? Keep your medical appointments Future Appointments Date Time Provider Department Center 03/02/2019 10:00 AM [facility] [place] [facility] [place] 03/07/2019 9:00 AM JOSE DE JESUS [facility] Result Component ? ? Hemoglobin A1c < 7.0 8.0 8.7 8.5 8.5 9.0 Patient will work towards decreasing A1c to 7 within 6 months (June 2019) a.) Patient will check A1C every three months (Should be less than 7.0) b.) Patient will check blood glucose 2 times daily and report to child caregiver weekly c.) Patient will take medication as prescribed d.) Patient will exercise for 5 minutes 2 days per week e.) Patient will maintain a food diary f.) Patient will weigh daily and record g.) Patient will follow up with Endocrine Dr Stewart h.) Patient will schedule a foot exam: done i.) Patient will schedule an eye exam: done FLOORPERSON documented in this encounter Plan of Treatment Scheduled Referrals Name Type Priority Associated Order Schedule Diagnoses Ambulatory referral Outpatient Referral Routine Medicare corie rodgers Ordered: to Care Coordination wellness visit, 08/2018 initial documented as of this encounter Goals Goal Patient Goal Associated Recent Patient-Stated? Author Type Problems Progress Routine Health General No change No Domitila Management (02/05/2021 Abbie Murray 11:19 AM SLOT FLOORPERSON) RN Note: Formatting of this note is differe nt from the original. Routine Health Management Care Team Patient Care Team: Corrine Vazquez MD as PCP - General (F amily Medicine) Yossi Potts, RN as Registered Nurse (Diabetes Education) Abbie Ramesh RN as Foreman/Pile Driving And Erection Future Scheduled Appointments No future appointments. Health [...] (HCC) documented in this encounter Care Teams Senior Executive Assistant Relationship Specialty Start Date End Date Adriane Patel, CONSERVATION TECHNICIAN, MATERIAL SPECIALIST PCP - General 09/22/17 07/06/19 100 COUNT INCLUDES THE [facility] [id number] documented as of this encounter
--- OUTSIDE RECORDS SUMMARY | 2021-09-05 00:13 | XMS_ITS | Encounter Summary ---
:1945 Author Organization [facility] Address [address] [place] [address] Care Team Providers Name Role Phone Ronak Patel APRON TRIMMER, UNIVERSITY REGISTRAR Primary Care Provider Encounter Details Date Type Department Care Team Description 12/23/2018 Patient Outreach Care Coordination Abbie Ramesh Counseling and coordination of care (Primary Dx); [address] [facility] ERA Murray Type 2 diabetes mellitus with other spec ified complication, with long-term current use of insulin ([facility]) [place], [place] [id number] [place] [address] [place] [address] Social History Tobacco Use Types Packs/Day Years [...] or relatives? How often do you attend baptism or More than 4 times per year 12/23/2018 evangelical services? Do you belong to any clubs or No 12/23/2018 organizations such as baptism groups, unions, fraternal or athletic groups, or [...] encounter Progress Notes Abbie Ramesh RN - 12/23/2018 10:20 AM CST Continued Care Plan - Care Coordination Discussion Date: 12/23/2018 11:17 AM Contacted Marcial in the office today to discuss Care Coordination enrollment. Explained the patient's benefits and about the Care Coordination program. She agrees to enroll into the program. Marcial identified that Diabetes (DM) is most important to work on. Today's discussion: ??? Marcial states she has just recently started on insulin and was thinking her blood sugar numbers would be lower than they have been. Discussed about how diet and exercise play a large role in lowering blood sugars as well. She would like to work on lowering her blood sugars and manage her diabetes better. Follow-up plan: ??? Follow up with spa coordinator in 1 week to discuss care plan and goals Items for Provider to address: ??? None [...] 12/18/2019 ??? Fall Risk Performed 12/24/2019 ??? [facility] Annual Wellness 12/24/2019 ??? Colorectal Cancer Screening: Colonoscopy 05/21/2021 Lifestyle ??? Keep your medical appointments Future Appointments Date Time Provider Department Center 03/02/2019 10:00 AM [facility] [place] 03/07/2019 9:00 AM JOSE [facility] JES[facility] Result Component ? ? Hemoglobin A1c < 7.0 8.0 8.7 8.5 8.5 9.0 Patient will work towards decreasing A1c to 7 within 6 months (June 2019) a.) Patient will check A1C every three months (Should be less than 7.0) b.) Patient will check blood glucose 2 times daily and report to care attendant weekly c.) Patient will take medication as prescribed d.) Patient will exercise for 5 minutes 2 days per week e.) Patient will maintain a food diary f.) Patient will weigh daily and record g.) Patient will follow up with Endocrine Dr Stewart h.) Patient will schedule a foot exam: done i.) Patient will schedule an eye exam: done NTORY SPECIALIST MANAGER Abbie Ramesh RN - 12/23/2018 10:20 AM CST Care Plan - Care Coordination Enrolled date: Discussion Date: 12/23/18 11:40 AM Patient Information: Preferred Under Cutting Machine Operator: patient Preferred Method of communication: Home [phone] (home) Okay to leave detailed message: Yes MyChart: No, Patient refused Literacy Concerns: No Vegetable Buncher needed: No Extended Emergency Contact Information Primary Emergency Contact: ALEX BAZAN Mobile Relation: Spouse Vegetable Buncher needed? No Healthcare Team: Patient Care Team: Adriane Patel APRN, UNIVERSITY REGISTRAR as PCP - General JOSE DE JESUS [place] as Diabetes Management (Endocrinology) Yossi Potts, RN as Registered Nurse (Diabetes Education) DANNIE GonzalezN, RN, PHN as Edge Inker Uppers To contact your Antique Dealer, please call Care Coordination at [phone] If this is an emergency, call [phone] Medications: Current Outpatient Medications: ??? Abatacept (ORENCIA IV), Infuse into a venous catheter every 30 (thirty) days, Disp: , Rfl: ??? ACCU-CHEK SIDDHARTH PLUS test strip, USE TO TEST BLOOD GLUCOSE 3 TIMES A DAY, Disp: 300 each, Rfl: 3 ??? ACCU-CHEK FASTCLIX LANCETS mis, Check blood glucose 4 times a day, [...] DAILY, Disp: 90 tablet, Rfl: 3 ??? pujrjghr-ghcpgopyb-myarmjshzrtrs (MAXITROL) 3.5-54410-9.1 ophthalmic suspension, Administer 1 drop into affected eye(s) 4 (four) times a day Both eyes, Disp: , Rfl: ??? nitroglycerin (NITROSTAT) 0.4 MG SL tablet, [...] time each day,Disp: 90 tablet, Rfl: 3 Allergies: Allergies Allergen Reactions ??? Lisinopril Other (see comments) nightmares ??? Azathioprine ??? Azithromycin ??? Olmesartan Immunizations: Immunization History Administered Date(s) Administered ??? Flu Vaccine High Dose 65yrs and Older IM 11/23/2013, 11/22/2014, 11/29/2014, 12/01/2015, 12/10/2015, 12/02/2016, 01/18/2018 ??? Influenza (IM) Preservative Free 01/08/2009 ??? Influenza Split 12/31/2009, 11/22/2014 ??? Influenza TIV (IM) 12/17/2009 ??? Influenza, Unspecified 12/17/2009, 11/30/2010, 11/16/2012, 12/02/2013, 11/29/2014, 12/10/2015 ??? Pneumococcal Conjugate 13-Valent 06/21/2014 ??? Pneumococcal Polysaccharide 01/28/2008 ??? Td 02/14/2010 ??? Tdap 02/14/2010 ??? Zoster 08/28/2015, 09/20/2015 Social Determinants of Health: Social History Socioeconomic History ??? Marital status: [...] More than three times a week Attends evangelical service: More than 4 times per year Active member of club or organization: No Attends meetings of clubs or organizations: Never Relationship status: ??? Intimate partner violence: Fear of current or ex partner: No Emotionally abused: No Physically abused: No Forced sexual activity: No Other Topics Concern ??? Not on file Social History Narrative ??? Not on file Chronic/Pertinent Medical Diagnoses: Patient Active Problem List Diagnosis ??? Anemia ??? Benign paroxysmal positional vertigo ??? Cervicalgia ??? Chronic coronary artery disease ??? Gout ??? Hyperlipidemia ??? Other senior living (current) drug therapy ??? Paresthesia of skin ??? Postmenopausal atrophic vaginitis ??? Postmenopausal bleeding ??? Postoperative urinary tract infection ??? Rheumatoid arthritis (HCC) ??? Subclinical hypothyroidism ??? Type 2 diabetes mellitus with other specified complication (HCC) ??? Edema ??? Essential hypertension ??? Stage 3 chronic kidney disease (HCC) ??? Anemia ??? Chronic ischemic heart disease ??? Other osteoporosis Health Problem(s) of Greatest Concern to Patient: Diabetes managment Patient goals: Goals ??? Health Maintenance (pt-stated) Health Maintenance Topic Date Due ??? Pneumococcal PPSV23/PCV13 65+ Years / Low and Medium Risk (2 of 2 - PPSV23) 06/22/2015 ??? Lipid Panel 01/28/2019 ??? Hemoglobin A1C 01/28/2019 ??? Diabetic Foot Exam 07/16/2019 ??? Urine Protein Screening 08/28/2019 ??? Mammogram 11/26/2019 ??? Glaucoma Screening 67+ Yr 12/18/2019 ??? Ophthalmology Exam 12/18/2019 ??? Fall Risk Performed 12/24/2019 ??? [facility] Annual Wellness 12/24/2019 ??? Colorectal Cancer Screening: Colonoscopy 05/21/2021 ? ? Hemoglobin A1c < 7.0 Patient will work towards decreasing A1c to 7 within 6 months (June 2019) a.) Patient will check A1C every three months (Should be less than 7.0) b.) Patient will check blood glucose 2 times daily and report to care attendant weekly c.) Patient will take medication as prescribed d.) Patient will exercise for 5 minutes 2 days per week e.) Patient will maintain a food diary f.) Patient will weigh daily and record g.) Patient will follow up with Endocrine Dr Stewart h.) Patient will schedule a foot exam: done i.) Patient will schedule an eye exam: done ??? Keep your medical appointments Future Appointments Date Time Provider Department Center 03/02/2019 10:00 AM [facility] [place] 03/07/2019 9:00 AM JO[facility] Emergency Plans: Diabetes Management Emergency Preparation Hypoglycemia (low blood glucose) If your blood glucose is low you may feel anyof the following: shaky, sweaty, iritable, weak, anxious, your heart racing, confusion, difficulty concentrating, headache, numbness, or unusual behavior. Any blood glucose below 70 should be treated with one of the followin/2 cup fruit juice 1/2 can of regular (not diet) pop 3 glucose tablets 1 cup milk 4-6 lifesavers 1 package glucose gel Hyperglycemia (high blood glucose) If your blood sugars are running consistently higher than 350 contact your provider for further recommendations. Call your health care team if you have two or three low blood glucose in a week or you have two or more low blood glucose readings in 24 hours! NTORY SPECIALIST MANAGER documented in this encounter Plan of Treatment Not on filedocumented as of this encounter Goals Goal Patient Goal Associated Recent Patient-Stated? Author Type Problems Progress Routine Health General No change No Peter Ramesh (02/05/2021 Abbie Murray, 11:19 AM INVENTORY SPECIALIST MANAGER) RN Note: Formatting of this note is differe nt from the original. Routine Health Management Care Team Patient Care Team: Corrine Vazquez MD as PCP - General ([facility] Medicine) Yossi Potts, RN as Registered Nurse (Diabetes Education) Abbie Ramesh, ERA as Edge Inker Uppers Future Scheduled Appointments No future appointments. Health [...] (HCC) documented in this encounter Care Teams Airline Managerial Supervisor Relationship Specialty Start Date End Date Adriane Patel, APRON TRIMMER, UNIVERSITY REGISTRAR PCP - General 09/22/17 07/06/19 [address] [facility] [place] [address] documented as of this encounter
--- OUTSIDE RECORDS SUMMARY | 2021-09-05 00:13 | XMS_ITS | Encounter Summary ---
:1945 Author Organization [facility] Address [address] [place] [address] Care Team Providers Name Role Phone Ronak Patel BOTTLE CAPPING MACHINE OPERATOR, TRAVEL JOURNALIST Primary Care Provider Reason for Visit Reason Onset Date Comments Med reaction 12/08/2018 Encounter Details Date Type Department Care Team Description 12/08/2018 Telephone [place] Adriane Patel, Med reaction [address] BOTTLE CAPPING MACHINE OPERATOR, TRAVEL JOURNALIST [place], [place] [address] [address] [facility] [address] [phone] [place], [place] [address] Social History Tobacco Use [...] More than 4 times per year 12/23/2018 scientologist services? Do you belong to any clubs [...] this encounter Miscellaneous Notes Telephone Encounter - Adriane Patel APRN, TRAVEL JOURNALIST - 12/08/2018 1:48 PM CDT Called the patient. Telephone Encounter - Margareth Sanchez RN - 12/08/2018 10:20 AM CDT Patient informed, please call patient when culture is done. Telephone Encounter - Adriane Patel APRN, CNP - 12/08/2018 9:51 AM CDT Please have her discontinue the medication, and send this note back to my work list, as I will awaitthe culture this afternoon and then call her. Suresh Telephone Encounter - Margareth Sanchez RN - 12/08/2018 9:40 AM CDT Patient took 2 tablets of the Keflex yesterday and had diarrhea this morning 3-4 times. She did takeone more tablet of Keflex this morning. Patient would like to know if she should stay on this medication or if she should be on something else. She denies nausea, and is able to keep liquids down. Please advise. Telephone Encounter - Luciana Albarado - 12/08/2018 8:03 AM CDT Pt called stating she has diarrhea from the medication she was prescribed yesterday. Please call Pt at [phone] to advise. documented in this encounter Plan of Treatment Not on filedocumented as of this encounter Visit Diagnoses Not on filedocumented in this encounter Care Teams Dispatch Supervisor Relationship Specialty Start Date End Date Adriane Patel APRN, LEONARD PCP - General 09/22/17 07/06/[address] [place] [address] [place] [address] documented as of this encounter
--- OUTSIDE RECORDS SUMMARY | 2021-09-05 00:13 | XMS_ITS | Encounter Summary ---
:1945 Author Organization [facility] Address [address] [place] [address] Care Team Providers Name Role Phone Ronak Patel NURSE AIDE EVALUATOR, JET DYEING MACHINE OPERATOR Primary Care Provider Encounter Details Date Type Department Care Team Description 03/01/2019 Lab [place]ie Pierre Type 2 diabetes mellitus wit h [address] other specified complication , [place] [address] without long-term current us e [phone] of insulin (HCC ) Social History Tobacco Use Types Packs/Day Years [...] Peter Monzon (02/05/2021 Abbie Murray, 11:19 AM DISPOSAL WORKER) RN Note: Formatting of this note is differe nt from the original. Routine Health Management Care Team Patient Care Team: Corrine Vazquez MD as [facility] - [facility] Yossi Potts, RN as Registered Nurse (Diabetes Education) Abbie Ramesh, RN as Patient Safety Manager Future Scheduled Appointments No future appointments. [...] Name Priority Date/Time Associated Diagnosis Comme nts HEMOGLOBIN A1C Routine 03/01/2019 11:39 AM Type 2 diabetes Res ults for this DISPOSAL WORKER mellitus with other procedur e are in the specified results section . complication, without long-term current use of insulin (HCC) documented in this encounter Results (ABNORMAL) Hemoglobin A1c (03/01/2019 11:39 AM DISPOSAL WORKER) Analysis Performed At Patho logist Time Signature Hemoglobin A1C 8.8 (H) 4.0 - 5.6 03/02/2019 [place] % A1C 1:45 PM [facility] Comment: Reference Range 4.0-5.6% [...] (Source) Location / / Volume Laterality Blood 03/01/2019 11:39 03/02/2019 AM DISPOSAL WORKER 12:55 PM DISPOSAL WORKER Bacilio DELA CRU[facility] LAB BLOOD ORDERABLES Performing Organization Address City/State/ZIP Code Phon e Number [facility] [address] [place] [address] documented in this encounter Visit Diagnoses Diagnosis Type 2 diabetes mellitus with other spec ified complication, without long-term current use of insulin (HCC) documented in this encounter Care Teams Cured Meats Supervisor Relationship Specialty Start Date End Date Adriane Patel APRN, JET DYEING MACHINE OPERATOR PCP - General 09/22/17 07/06/[address] [place] [address] documented as of this encounter
--- OUTSIDE RECORDS SUMMARY | 2021-09-05 00:13 | XMS_ITS | Encounter Summary ---
:1945 Author Organization [facility] Address [address] [place] [address] Care Team Providers Name Role Phone Ronak Patel RN PARALEGAL, HAND LACER Primary Care Provider Reason for Visit Reason Onset Date Comments Ozempic 03/11/2019 Encounter Details Date Type Department Care Team Description 03/11/2019 Telephone [place] Endocrinology Bacilio Stewart MBBS Ozempic [address] [place] [address] [place] [address] [phone] (Wo rk) Social History Tobacco Use Types [...] or relatives? How often do you attend alevism or More than 4 times per year 12/23/2018 druze services? Do you belong to any clubs or No 12/23/2018 organizations such as alevism groups, unions, fraternal or athletic groups, or [...] Telephone Encounter - Rebecca Ibrahim MA - 03/11/2019 4:43 PM CST Patient informed of above message and verbalized an understanding. L HOLE DRILLER Telephone Encounter - JOSE DE JESUS Austin - 03/11/2019 3:56 PM CST It is completely up to her whether she wants to take a medication or not, I don't have any problem in either case. If she does not take ozempic, she should continue with the same dose of januvia. L HOLE DRILLER Telephone Encounter - Rebecca Ibrahim MA - 03/11/2019 2:04 PM CST Patient called and stated that she is not wanting to proceed with Ozempic due to the warnings and side effects. Since her visit she has cut out sweets, carbs, snack between meal. Her fasting BG have been 100-116 Noon 92-127 Supper 98-156 Bedtime 165 2 am 129 Please advise L HOLE DRILLER documented in this encounter Plan of Treatment Not on filedocumented as of this encounter Goals Goal Patient Goal Associated Recent Patient-Stated? Author Type Problems Progress Routine Health General No change No Peter Ramesh (02/05/2021 Abbie Murray, 11:19 AM JEWEL HOLE DRILLER) RN Note: Formatting of this note is differe nt from the original. Routine Health Management Care Team Patient Care Team: Corrine Vazquez MD as PCP - General ([facility] Medicine) Yossi Potts, RN as Registered Nurse (Diabetes Education) Abbie Ramesh RN as Medical Editor Future Scheduled Appointments No future appointments. Health Maintenance Health Maintenance Topic Date Due Urine Protein Screening 05/31/2020 Lipid Panel 09/05/2020 Glaucoma Screening 67+ Yr 12/25/2020 Ophthalmology Exam 12/25/2020 [facility] Annual Wellness 01/12/2021 Hemoglobin A1C 01/24/2021 Diabetic [...] on filedocumented in this encounter Care Teams Rawhide Trimmer Relationship Specialty Start Date End Date Adriane Patel, RN PARALEGAL, HAND LACER PCP - General 09/22/17 07/06/19 [address] [facility] [place] [address] documented as of this encounter
--- OUTSIDE RECORDS SUMMARY | 2021-09-05 00:13 | XMS_ITS | Encounter Summary ---
:1945 Author Organization [facility] Address [address] [place] [address] Care Team Providers Name Role Phone Ronak Patel DIRECTOR BUSINESS DEVELOPMENT, PERSONAL LOAN SPECIALIST Primary Care Provider Reason for Visit Reason Comments Med Refill Encounter Details Date Type Department Care Team Description 04/16/2019 Refill [place] Adriane Patel, Anxiety (Primary Dx) [address] DIRECTOR BUSINESS DEVELOPMENT, LEONARD [place], [place] [address] [address] [facility] [phone] [place], [place] [address] Social History Tobacco Use [...] Notes Telephone Encounter - Luciana Verena - 04/18/2019 1:53 PM CST Rx faxed to [facility] as requested. INSTALLER Telephone Encounter - Lana Knight LPN - 04/18/2019 1:25 PM CST Please fax to [facility] INSTALLER Telephone Encounter - Adriane Patel APRN, LEONARD - 04/18/2019 1:04 PM PUMP INSTALLER Completed. Suresh Cm INSTALLER Telephone Encounter - Huma Reich MA - 04/18/2019 10:57 AM CST Last visit in Provider Department: 12/23/2018 Dr. Vazquez Wellness check [id number] Upcoming appointment with Provider: No future appt scheduled Last Rx: #15 +3 refills 06/24/2018 States med Dc'd 10/29/2018 by Lana Knight LPN Therapy Complete Please advise pharmacy Requested Prescriptions Pending Prescriptions Disp Refills ??? ALPRAZolam (XANAX) 0.5 MG tablet [Pharmacy Med Name: ALPRAZOLAM 0.5MG TABS] 15 tablet 3 Sig: TAKE ONE TABLET BY MOUTH EVERY 8 HOURS NEEDED FOR ANXIETY- MUST LAST 30 DAYS Vitals: BP Readings from Last 2 Encounters: 03/07/19 128/70 12/23/18 152/82 INSTALLER documented in this encounter Plan of Treatment Not on filedocumented as of this encounter Goals Goal Patient Goal Associated Recent Patient-Stated? Author Type Problems Progress Routine Health General No change Hailee Ramesh Management (02/05/2021 Abbie Murray, 11:19 AM PUMP INSTALLER) RN Note: Formatting of this note is differe nt from the original. Routine Health Management Care Team Patient Care Team: Corrine Vazquez MD as PCP - General ([facility] Medicine) Yossi N Delroy, RN as Registered Nurse (Diabetes Education) Abbie Ramesh, RN as Toll Collector Future Scheduled Appointments No future appointments. Health Maintenance Health Maintenance Topic Date Due Urine Protein Screening 05/31/2020 Lipid Panel 09/05/2020 Glaucoma Screening 67+ Yr 12/25/2020 Ophthalmology Exam 12/25/2020 [facility] Annual Wellness 01/12/2021 Hemoglobin A1C 01/24/2021 Diabetic Foot Exam 03/16/2021 Colorectal Cancer Screening: Colonoscop y 05/21/2021 Fall Risk Performed 06/05/2021 Mammogram 12/03/2021 COVID-19 Vaccine Completed [facility] Pneumococcal Vaccine: <64 Complete d [facility] Pneumococcal Vaccine: 65+ Years Co mpleted HPV Vaccines Aged Out Notes: Due: Urine Protein screening Eye exam AWV A1C Lipid panel documented as of this encounter Visit Diagnoses Diagnosis Anxiety - Primary Anxiety state, unspecified documented in this encounter Care Teams Print Shop Chief Clerk Relationship Specialty Start Date End Date Adriane Patel, DIRECTOR BUSINESS DEVELOPMENT, PERSONAL LOAN SPECIALIST PCP - General 09/22/17 07/06/19 [address] [facility] [place] [address] documented as of this encounter
--- OUTSIDE RECORDS SUMMARY | 2021-09-05 00:13 | XMS_ITS | Encounter Summary ---
:1945 Author Organization [facility] Address [address] [place] [address] Care Team Providers Name Role Phone Ronak Patel COTTON WEIGHER OPERATOR, BIAS CUTTER Primary Care Provider Encounter Details Date Type Department Care Team Description 06/01/2019 Lab [place] Type 2 diabetes mellitus wit h other specified complication, with long-term current use of insulin (HCC); [address] Essential hypertension; [place], [place] [address] Stage 3 chronic kidney disea ([facility]) [phone] Social History Tobacco Use Types Packs/Day Years [...] Peter Ramesh (02/05/2021 Abbie Murray, 11:19 AM BANKING SERVICES CLERK) RN Note: Formatting of this note is differe nt from the original. Routine Health Management Care Team Patient Care Team: Corrine Vazquez MD as PCP - General ([facility] Medicine) Yossi Potts, RN as Registered Nurse (Diabetes Education) Abbie Ramesh RN as Evaluation Advisor Future Scheduled Appointments No future appointments. [...] Procedure Name Priority Date/Time Associated Comments Diagnosis MICROALBUMIN/CREATIN Routine 06/01/2019 8:50 AM Type 2 diabet es Results for this INE RATIO CDT mellitus with other procedur e are in specified the results complication, with section. long-term current use of insulin (HCC) Essential hypertension Stage 3 chronic kidney disease (HCC) GLOMERULAR Routine 06/01/2019 8:48 AM Type 2 diabetes Resul ts for this FILTRATION RATE CDT mellitus with other proce dure are in specified the results complication, with section. long-term current use of insulin (HCC) Essential hypertension Stage 3 chronic kidney disease (HCC) HEMOGLOBIN A1C Routine 06/01/2019 8:48 AM Type 2 diabetes Res ults for this CDT mellitus with other procedur e are in specified the results complication, with section. long-term current use of insulin (HCC) BASIC METABOLIC Routine 06/01/2019 8:48 AM Type 2 diabetes Re sults for this PANEL CDT mellitus with other procedur e are in specified the results complication, with section. long-term current use of insulin (HCC) Essential hypertension Stage 3 chronic kidney disease (HCC) documented in this encounter Results Microalbumin/Creatinine Ratio (06/01/2019 8:50 AM CDT) athologist Signature Microalbumin,m 15.3 0.0 - 16.6 06/01/2019 [facility] g/day mg/L 12:50 PM CDT [facility] Comment: . Creatinine, Urine 148 mg/dL 06/01/2019 12:50 PM CD T [facility] Comment: No established reference range. Microalb/Creat Ratio 10 0 - 24 mg/g 06/01/2019 12: 50 PM CDT [facility] Specimen Anatomical Collection Method Collection Time Receive d Time (Source) Location / / Volume Laterality Urine 06/01/2019 8:50 06/01/2019 AM CDT 12:11 PM CDT [facility] URINE ORDERABLES Performing Organization Address City/[facility] Phon e Number [facility] [address] [place] [phone] (ABNORMAL) Glomerular filtration rate (GFR) (06/01/2019 8:48 AM CDT) athologist [facility] GFR 40 (A) 06/01/2019 [facility] 10:10 AM CDT [facility] 49 (A) 06/01/2019 [facility] [place] GFR 10:10 AM CDT [facility] Comment: GFR calculated from serum creatinine v alue Chronic Kidney Disease less than 60 mL/m in/1.73 m2 Kidney Failure less than 15 mL/min/1.73 m2 Note: effective 07/01/06 IDMS-Traceable MDRD Study Equation used. Specimen Anatomical Collection Method Collection Time Receive d Time (Source) Location / / Volume Laterality 06/01/2019 8:48 06/01/2019 AM CDT 8:48 AM CDT [facility] LAB BLOOD ORDERABLES Performing Organization Address City/[facility] Phon e Number [facility] [address] [place] [address] (ABNORMAL) Hemoglobin A1c (06/01/2019 8:48 AM CDT) Analysis Performed At Patho logist Time Signature Hemoglobin A1C 8.5 (H) 4.0 - 5.6 06/01/2019 [facility] % A1C 12:37 PM CDT [facility] Comment: Reference [...] (Source) Location / / Volume Laterality Blood 06/01/2019 8:48 06/01/2019 AM CDT 12:11 PM CDT [facility] LAB BLOOD ORDERABLES Performing Organization Address City/State/ZIP Code Phon e Number [facility] [address] [place] [phone] (ABNORMAL) Basic metabolic panel (06/01/2019 8:48 AM CDT) P athologist Signature Sodium 140 135 - 145 06/01/2019 [facility] mmol/L 10:10 AM CDT [place] Potassium 4.0 3.5 - 5.1 06/01/2019 [facility] mmol/L 10:10 AM T [place] Comment: . Chloride 104 98 - 107 mmol/L 06/01/2019 10:10 AM CDT [facility] [place] Comment: . CO2 29 22 - 29 mmol/L 06/01/2019 10:10 AM CDT O [facility] [place] Comment: . Creatinine 1.3 (H) 0.4 - 1.2 mg/dL 06/01/2019 10:10 AM CDT [facility] [place] Comment: . BUN 32 (H) 5 - 25 mg/dL 06/01/2019 10:10 AM CDT [facility] [place] Comment: . Glucose 209 (H) 70 - 100 mg/dL 06/01/2019 10:10 AM [facility] [place] CDT Calcium, Total,S 9.7 8.4 - 10.2 mg/dL 06/01/2019 10:10 AM [facility] CDT Comment: . Fasting? No 06/01/2019 8:48 AM CDT [facility] Specimen Anatomical Collection Method Collection Time Receive d Time (Source) Location / / Volume Laterality Blood 06/01/2019 8:48 06/01/2019 AM CDT 8:48 AM CDT [facility] LAB BLOOD ORDERABLES Performing Organization Address City/State/ZIP Code Phon e Number [facility] [address] [place] [phone] documented in this encounter Visit Diagnoses Diagnosis Type 2 diabetes mellitus with other spec ified complication, with long-term current use of insulin (HCC) Essential hypertension Unspecified essential hypertension Stage 3 chronic kidney disease (HCC) documented in this encounter Care Teams Under Presser Relationship Specialty Start Date End Date Adriane Patel APRN, BIAS CUTTER PCP - General 09/22/17 07/06/19 [address] [facility] [place] [place] [address] documented as of this encounter
--- OUTSIDE RECORDS SUMMARY | 2021-09-05 00:13 | XMS_ITS | Encounter Summary ---
:1945 Author Organization [facility] Address [address] [place] [address] Care Team Providers Name Role Phone Ronak Patel MENTAL HYGIENIST, INSURANCE AGENTS SUPERVISOR Primary Care Provider Reason for Referral Consultation (Routine) - Closed Specialty Diagnoses / Procedures Referred By Contact Refer red To Contact Diagnoses Medicare annual wellness visit, initial Corrine Vazquez MD Care Coordination [address] [place], [place] [phone] Referral ID Status Reason Start Date Expiration Date Visits V isits Requested Authorized [id number] Closed Specialty 12/23/2018 99 99 Services Required Scheduling Instructions Staff from this department will contact the patient to schedule an appointment. PACKER Reason for Visit Reason Comments Medicare Annual Wellness Visit Initial Encounter Details Date Type Department Care Team Description 12/23/2018 Office Visit [place] Medicare annual wellness [address] visit, initial (Primary [place], [place] [address] Dx) [phone] Social History Tobacco Use Types Packs/Day Years [...] Progress Notes Abbie Ramesh RN - 12/23/2018 9:00 AM CST Annual Wellness Visit CARE TEAM / RESOURCES: Patient Care Team: Adriane Patel APRN, INSURANCE AGENTS SUPERVISOR as PCP - General JOSE DE JESUS [place] as Diabetes Management (Endocrinology) Yossi Potts RN as Registered Nurse (Diabetes Education) Eye Care: Dr Hadley in [place]: [facility]- 1 week ago Dental Care: Pharmacy: [facility] [address] [address] [facility] [address] [address] Other: Visit Vitals Smoking Status Never Smoker Most Recent Value Last 6 Months Temp 36.1 ??C (97 ??F) 12/23/2018 Pulse 72 12/23/2018 BP 152/82 12/23/2018 Resp 12 12/23/2018 SpO2 98 % 12/07/2018 Weight 83.2 kg (183 lb 8 oz) 12/23/2018 Height 1.615 m (5' 3.58) 12/07/2018 BMI (Calculated) 32.2 12/07/2018 Allergies Allergen Reactions ??? Lisinopril Other (see comments) nightmares ??? Azathioprine ??? Azithromycin ??? Olmesartan Outpatient Encounter Medications as of 12/23/2018 Medication Sig Dispense Refill ??? Abatacept (ORENCIA IV) Infuse into a venous catheter every 30 (thirty) days ??? ACCU-CHEK SIDDHARTH PLUS test strip USE TO TEST BLOOD GLUCOSE 3 TIMES A DAY 300 each 3 ??? ACCU-CHEK FASTCLIX LANCETS misc Check blood glucose 4 times a day, before each meal and at bedtime 102 each 7 ??? ferrous sulfate 325 (65 Fe) MG tablet Take 1 tablet (325 mg total) by mouth 1 (one) time each day with breakfast 90 tablet 3 ??? glipiZIDE (GLUCOTROL) 10 MG tablet Take 1 tablet (10 mg total) by mouth 2 (two) times a day before meals 180 tablet 3 ??? insulin glargine (BASAGLAR KWIKPEN) 100 UNIT/ML injection Inject 15 Units under the skin 1 (one)time each day 15 mL 3 ??? leflunomide (ARAVA) 20 MG tablet Take 20 mg by mouth every other day ??? levothyroxine (SYNTHROID, LEVOTHROID) 75 MCG tablet TAKE ONE TABLET BY MOUTH DAILY 90 tablet 3 ??? ezzgkgvv-cbtncolfj-iphdlrzwvpxiz (MAXITROL) 3.5-04959-3.1 ophthalmic suspension Administer 1 drop into affected eye(s) 4 (four) times a day Both eyes ??? nitroglycerin (NITROSTAT) 0.[address] 0.4 mg under the tongue ??? pen needle, diabetic 31G X 5 MM misc Use to inject insulin once a day 100 each 3 ??? rosuvastatin (CRESTOR) 5 MG tablet Take 0.5 tablets by mouth 1 (one) time each day ??? SITagliptin (JANUVIA) 50 MG tablet Take 1 tablet (50 mg total) by mouth 1 (one) time each day 90tablet 3 No facility-administered encounter medications on file as of 12/23/2018. Immunization History Administered Date(s) Administered ??? Flu [...] disease ??? Gout ??? Hyperlipidemia ??? Other [facility] (current[facility] drug therapy ??? Paresthesia of skin ??? Postmenopausal atrophic vaginitis ??? Postmenopausal bleeding ??? Postoperative urinary tract infection ??? Rheumatoid arthritis (HCC) ??? Subclinical hypothyroidism ??? Type 2 diabetes mellitus with other specified complication (HCC) ??? Edema ??? Essential hypertension ??? Stage 3 chronic kidney disease (HCC) ??? Anemia ??? Chronic ischemic heart disease ??? Other osteoporosis Past Medical History: Diagnosis Date ??? Anemia [...] More than three times a week Attends orthodoxy service: More than 4 times per year Active member of club or organization: No Attends meetings of clubs or organizations: Never Relationship status: ??? Intimate partner violence: Fear of current or ex partner: No Emotionally abused: No Physically abused: No Forced sexual activity: No Other Topics Concern ??? None Social History Narrative ??? None General Care Management Assessment completed with:: Patient, Spouse or significant other Enrolled in care management program:: No Living arrangement:: Spouse Support system:: Friends, Children, Family, Significant other Family conflict:: No Type of residence:: Private residence Home care services:: No Equipment used at home:: None Communication device:: Yes Financial problems:: No Transportation issues:: No Transportation means:: Regular car Bed or wheelchair confined:: No Diet:: Regular Inadequate nutrition:: No Exercise:: Currently not exercising Inadequate activity/exercise:: Yes Medication adherence problem:: No Experiencing side effects from current medications:: No History of falls in last 6 months:: No Difficulty keeping appointments:: No Family aware of the patient's advance care planning wishes:: Yes Shinto or spiritual beliefs that impact treatment:: No Chronic pain:: No Pain Assessment Scored: and location: Utilization / Navigation of Health Care Systems: Does not overuse the [facility], Acute Care, eVisits or Emergency Room. PHQ-9 mental health screening performed. Scored: 0 / 27 ERICK-7 anxiety screening performed. Scored: 13 / Mini-Cog test performed. Scored: 5 / 5 CAGE-AID test performed. BMI/weight management reviewed. BMI: Declined referral to nutrition education for BMI greater than 30. Fall Risk Assessment performed. Scored: 2/ Tug time: 10 Referral to Physical Therapy not applicable due to low fall risk. Colon Cancer Screening: Last done: 05/21/2018 Due: 05/21/2021 Breast Cancer Screening: Last done: 11/20/2017 Osteoporosis Screening: Last done: 07/29/2016 Hepatitis C Screening: No results found for: HEPCAB Glaucoma Screening: Preformed at outside facility AAA Screening: Not indicated Lung Cancer Screening: Not indicated Findings: -Up to date on all screenings -Declines nutrition referral at this time -Agreed to enroll in care coordination to work on Diabetes management The following referral(s) were created: CCM (Chronic Care Management) - agreed to enroll. What is an Annual Wellness Visit? Yearly [...] transfusion before 1991. ?? Those born between 4605-8373. Glaucoma: Medicare Part B (Medical Insurance) covers [...] of one pack a dayfor 30 years). PACKER documented in this encounter Plan of Treatment Scheduled Referrals Name Type Priority Associated Order Schedule Diagnoses Ambulatory referral Outpatient Referral Routine Medicare corie rodgers Ordered: to Care Coordination wellness visit, 08/2018 initial documented as of this encounter Goals Goal Patient Goal Associated Recent Patient-Stated? Author Type Problems Progress Routine Health General No change No Peter Ramesh (02/05/2021 Abbie Murray, 11:19 AM MAT PACKER) RN Note: Formatting of this note is differe nt from the original. Routine Health Management Care Team Patient Care Team: Corrine Vazquez MD as PCP - [facility]) Yossi Potts, RN as Registered Nurse (Diabetes Education) Abbie Ramesh, ERA as Operation Specialist Future Scheduled Appointments No future appointments. Health Maintenance Health Maintenance Topic Date Due Urine Protein Screening 05/31/2020 Lipid Panel 09/05/2020 Glaucoma Screening 67+ Yr 12/25/2020 Ophthalmology Exam 12/25/2020 [facility] Annual Wellness 01/12/2021 Hemoglobin A1C 01/24/2021 Diabetic [...] Visit Diagnoses Diagnosis Medicare annual wellness visit, initial - Primary documented in this encounter Care Teams Sugar Refinery Supervisor Relationship Specialty Start Date End Date Adriane Patel APRN, INSURANCE AGENTS SUPERVISOR PCP - General 09/22/17 07/06/19 [address] [facility] [place] [address] documented as of this encounter
--- OUTSIDE RECORDS SUMMARY | 2021-09-05 00:13 | XMS_ITS | Encounter Summary ---
:1945 Author Organization [facility] Address [address] [place] [address] Care Team Providers Name Role Phone Ronak Patel RAISE DRILLER, BIOMETRICS ANALYST Primary Care Provider Reason for Visit Reason Onset Date Comments [facility] 12/09/2018 Encounter Details Date Type Department Care Team Description 12/09/2018 Telephone [place] Adriane Patel, [facility] [address] RAISE DRILLER, BIOMETRICS ANALYST [place], [place] [address] [address] [facility] [address] [phone] [place], [place] [address] Social History Tobacco Use [...] or relatives? How often do you attend evangelical or More than 4 times per year 12/23/2018 mormonism services? Do you belong to any clubs or No 12/23/2018 organizations such as evangelical groups, unions, fraternal or athletic groups, or [...] Telephone Encounter - Lana Knight LPN - 12/09/2018 4:01 PM CDT Patient is scheduling with Anthony. Telephone Encounter - Adriane Patel APRN, LEONARD - 12/09/2018 1:20 PM CDT I will order erythromycin but I would like her to have an eye appointment as this will be the third antibiotic we have tried and there could be something else occurring. Thanks Suresh Telephone Encounter - Lana Knight LPN - 12/09/2018 1:08 PM CDT Would you like the patient seen? Please advise Telephone Encounter - Luciana Albarado - 12/09/2018 12:39 PM CDT Pt called wondering if she can have a Rx for pink eye sent to [facility], as her eyes are all red and gunky. Please call Pt at [phone] to advise. documented in this encounter Plan of Treatment Not on filedocumented as of this encounter Visit Diagnoses Diagnosis Conjunctivitis of both eyes, unspecified conjunctivitis type - Primary documented in this encounter Care Teams Medical Front Desk Coordinator Relationship Specialty Start Date End Date Adriane Patel APRN, LEONARD PCP - General 09/22/17 07/06/19 [address] [place] [address] documented as of this encounter
--- OUTSIDE RECORDS SUMMARY | 2021-09-05 00:13 | XMS_ITS | Encounter Summary ---
:1945 Author Organization [facility] Address [address] [place] [address] Care Team Providers Name Role Phone Ronak Patel LASER/ELECTRO OPTICS TECHNICIAN, TAX COMPLIANCE REPRESENTATIVE Primary Care Provider Reason for Visit Reason Onset Date Comments call 12/24/2018 Encounter Details Date Type Department Care Team Description 12/24/2018 Telephone [place] Adriane Patel, call [address] LASER/ELECTRO OPTICS TECHNICIAN, TAX COMPLIANCE REPRESENTATIVE [place], [place] [address] [address] [phone] [place], [place] [address] Social History Tobacco Use [...] or relatives? How often do you attend nondenominational or More than 4 times per year 12/23/2018 pentecostal services? Do you belong to any clubs or No 12/23/2018 organizations such as nondenominational groups, unions, fraternal or athletic groups, or [...] this encounter Miscellaneous Notes Telephone Encounter - Mackenzie De Santiago RN - 12/27/2018 8:56 AM CST Noted STANT PROFESSOR OF RADIOLOGY Telephone Encounter - Corrine Vazquez MD - 12/24/2018 5:20 PM CST Antibiotic sent to [facility] STANT PROFESSOR OF RADIOLOGY Telephone Encounter - Margareth Sanchez RN - 12/24/2018 2:22 PM CST Patient informed, she would like to try the antibiotic first prior to trying the cream. Please send to [facility]. STANT PROFESSOR OF RADIOLOGY Telephone Encounter - Margareth Sanchez RN - 12/24/2018 2:22 PM CST ----- Message from Corrine Vazquez MD sent at 12/24/2018 2:09 PM ASSISTANT PROFESSOR OF RADIOLOGY ----- Marcial's urine culture is not highly suggestive of a bladder infection. Call Marcial and see how hersymptoms are. We have a couple of options. One is to actually treat with an antibiotic for one weeks and see if this helps as there was minor growth on the culture. If this does not help or if thesymptoms continue then I would suggest we try vaginal estrogen cream as I suspect she has atrophic vaginitis that is possibly causing her symptoms. The other option is to just start the vaginal estrogen at this time. Let me know what she would like to do. STANT PROFESSOR OF RADIOLOGY documented in this encounter Plan of Treatment Not on filedocumented as of this encounter Goals Goal Patient Goal Associated Recent Patient-Stated? Author Type Problems Progress Routine Health General No change Peter Monzon (02/05/2021 Abbie Murray, 11:19 AM ASSISTANT PROFESSOR OF RADIOLOGY) RN Note: Formatting of this note is differe nt from the original. Routine Health Management Care Team Patient Care Team: Corrine Vazquez MD as PCP - General ([facility] Medicine) Yossi N Delroy, RN as Registered Nurse (Diabetes Education) Abbie Ramesh RN as Hotel Maintenance Technician Future Scheduled Appointments No future appointments. [...] as of this encounter Visit Diagnoses Diagnosis Cystitis - Primary Unspecified cystitis documented in this encounter Care Teams Centrifugal Chiller Technician Relationship Specialty Start Date End Date Adriane Patel, LASER/ELECTRO OPTICS TECHNICIAN, TAX COMPLIANCE REPRESENTATIVE PCP - General 09/22/17 07/06/[address] [place] [id number] documented as of this encounter
--- OUTSIDE RECORDS SUMMARY | 2021-09-05 00:13 | XMS_ITS | Encounter Summary ---
:1945 Author Organization [facility] Address [address] [place] [address] Care Team Providers Name Role Phone Ronak Patel COOK VEGETABLE, INNER LAYER SCRUBBER TENDER Primary Care Provider Encounter Details Date Type Department Care Team Description 12/07/2018 [facility] [place] Urinary tract infection [address] without hematuria, site [place], [place] [address] unspecified [phone] Social History Tobacco Use Types Packs/Day Years [...] or relatives? How often do you attend zoroastrianism or More than 4 times per year 12/23/2018 amish services? Do you belong to any clubs or No 12/23/2018 organizations such as zoroastrianism groups, unions, fraternal or athletic groups, or [...] Not on filedocumented as of this encounter Procedures Procedure Name Priority Date/Time Associated Diagnosis Comme nts URINALYSIS-MICROSCOP Routine 12/07/2018 2:55 Urinary tract Re sults for this IC EXAM (REFLEXED) PM CDT infection without proc edure are in hematuria, site the results unspecified section. URINALYSIS WITH Routine 12/07/2018 2:55 Urinary tract Results for this REFLEX MICROSCOPIC PM CDT infection without proc edure are in hematuria, site the results unspecified section. URINE CULTURE Routine 12/07/2018 2:55 Urinary tract Results f or this PM CDT infection without procedure are in hematuria, site the results unspecified section. documented in this encounter Results (ABNORMAL) Urinalysis-Microscopic Exam (12/07/2018 2:55 PM CDT) [facility] Method Time Signature Casts, urine NONE SEEN 0-2 Hyaline 12/08/2018 [place] /lpf 1:03 PM [facility] Significant NONE SEEN None Seen 12/08/2018 [place] casts, urine /lpf 1:03 PM [facility] RBC, Urine 4-10 (A) 0 - 3 /hpf 12/08/2018 [place] 1:03 PM [facility] WBC, Urine 0-3 /hpf 12/08/2018 [place] 1:03 PM [facility] Comment: Male Ref Range ? 0-3/hpf Female Ref Range ?? 0-10/hpf Squamous Epithelial, 1+ (A) Few /lpf 12/08/2018 1:03 PM [facility] Urine [facility] Trans Epithelial, NONE SEEN 0 - 3 /hpf 12/08/2018 1:03 PM [facility] Urine T [facility] Renal Tubular Cells, NONE SEEN 0 - 1 /hpf 12/08/2018 1:03 P M [facility] Urine [facility] Bacteria, Urine FEW None Seen 12/08/2018 1:03 PM [facility] Specimen Anatomical Collection Method Collection Time Receive d Time (Source) Location / / Volume Laterality 12/07/2018 2:55 12/08/2018 PM CDT 12:21 PM CDT Adriane Patel APRN, INNER LAYER SCRUBBER TENDER LAB URINE ORDERABLES Performing Organization Address City/State/ZIP Code Phon e Number [facility] [address] [place] [address] Urine culture (clean catch) (12/07/2018 2:55 PM CDT) [facility] Method [place] Signature Urine Culture <10,000 12/08/2018 [place] cfu/ml No 12:56 PM [facility] further ID. LABORATORY Specimen Anatomical Collection Method Collection Time Receive d Time (Source) Location / / Volume Laterality Urine, Clean 12/07/2018 2:55 12/08/2018 Catch PM CDT 12:21 PM CDT Narrative [facility] - 11/17 12:56 PM CDT Patient does not have an Amoxicillin or PCN allergy Adriane Patel APRN, INNER LAYER SCRUBBER TENDER LAB MICROBIOLOGY - GENERA L ORDERABLES Performing Organization Address City/State/ZIP Code Phon e Number [facility] [address] [place] [address] (ABNORMAL) Urinalysis with reflex microscopic (clean catch) (12/07/2018 2:55 PM CDT) [facility] Method Time Signature Type CLEAN CATCH 12/08/2018 [...] [place] Specific 1.020 1.000 12/08/2018 [facility] [place], ->=1.030 9:29 AM CDT [place] Urine Blood, Urine MODERATE (A) NEGATIVE 12/08/2018 [facility] 9:29 AM CDT [place] pH, Urine 5.5 5.0 - 7.0 12/08/2018 [facility] 9:29 AM CDT [place] Protein, 30 (A) NEGATIVE-TRA 12/08/2018 [facility] Urine CE mg/dL 9:29 AM CDT [place] Urobilinogen, 0.2 0.2 - 1.0 12/08/2018 [facility] Urine E.U./dL 9:29 AM CDT [place] Nitrite, NEGATIVE NEGATIVE 12/08/2018 [facility] Urine 9:29 AM CDT [place] Leukocytes, TRACE (A) NEGATIVE 12/08/2018 [facility] Urine 9:29 AM CDT [place] Specimen Anatomical Collection Method Collection Time Receive d Time (Source) Location / / Volume Laterality Urine (Urine, 12/07/2018 2:55 12/07/2018 Clean Catch) PM CDT 2:56 PM CDT Adriane Patel APRN, LEONARD LAB URINE ORDERABLES Performing Organization Address City/State/ZIP Code Phon e Number [facility] [place] [address] [place] [address] documented in this encounter Visit Diagnoses Diagnosis Urinary tract infection without hematuri a, site unspecified documented in this encounter Care Teams Clinical Research Specialist Relationship Specialty Start Date End Date Adriane Patel APRN, INNER LAYER SCRUBBER TENDER PCP - General 09/22/17 07/06/19 100 [facility] [place] [address] documented as of this encounter
--- OUTSIDE RECORDS SUMMARY | 2021-09-05 00:13 | XMS_ITS | Encounter Summary ---
:1945 Author Organization [facility] Address [address] [place] [address] Care Team Providers Name Role Phone Ronak Patel HOTEL ASSISTANT MANAGER, CLINICAL TRANSPLANT COORDINATOR Primary Care Provider Encounter Details Date Type Department Care Team Description 12/23/2018 [facility] Frequency of micturition [address] [place], [place] [address] Social History Tobacco Use [...] or relatives? How often do you attend congregational or More than 4 times per year 12/23/2018 orthodox services? Do you belong to any clubs or No 12/23/2018 organizations such as congregational groups, unions, fraternal or athletic groups, or [...] Peter Ramesh (02/05/2021 Abbie Murray, 11:19 AM EARLY CHILDHOOD COORDINATOR) RN Note: Formatting of this note is differe nt from the original. Routine Health Management Care Team Patient Care Team: Corrine Vazquez MD as [facility] - [facility] Yossi Potts, RN as Registered Nurse (Diabetes Education) Abbie Ramesh, ERA as Mammalogy Teacher Future Scheduled Appointments No future appointments. [...] Date/Time Associated Diagnosis Comme nts URINALYSIS-MICROSCOP Routine 12/23/2018 9:58 Frequency of Res ults for this IC EXAM (REFLEXED) AM EARLY CHILDHOOD COORDINATOR micturition procedure are in the results section. URINALYSIS WITH Routine 12/23/2018 9:58 Frequency of Results for this REFLEX MICROSCOPIC AM EARLY CHILDHOOD COORDINATOR micturition procedure are in the results section. URINE CULTURE Routine 12/23/2018 9:58 Frequency of Results fo r this AM EARLY CHILDHOOD COORDINATOR micturition procedure are i n the results section. documented in this encounter Results Urinalysis-Microscopic Exam (12/23/2018 9:58 AM EARLY CHILDHOOD COORDINATOR) [facility] Method Time Signature Casts, urine NONE SEEN 0-2 Hyaline 12/24/2018 [place] /lpf 12:59 PM [facility] Significant NONE SEEN None Seen 12/24/2018 [place] casts, urine /lpf 12:59 PM [facility] RBC, Urine NONE SEEN 0 - 3 /hpf 12/24/2018 IBIS 12:59 PM [facility] WBC, Urine 4-10 /hpf 12/24/2018 IBIS 12:59 PM [facility] Comment: Male Ref Range ? 0-3/hpf Female Ref Range ?? 0-10/hpf WBC Clumps Present. Squamous Epithelial, FEW Few /lpf 12/24/2018 12:59 PM [facility] Urine [facility] Trans Epithelial, NONE SEEN 0 - 3 /hpf 12/24/2018 12:59 PM [facility] Urine [facility] Renal Tubular Cells, NONE SEEN 0 - 1 /hpf 12/24/2018 12:59 P M [facility] Urine [facility] Bacteria, Urine NONE SEEN None Seen 12/24/2018 12:59 PM [facility] Specimen Anatomical Collection Method Collection Time Receive d Time (Source) Location / / Volume Laterality 12/23/2018 9:58 12/24/2018 AM EARLY CHILDHOOD COORDINATOR 12:18 PM EARLY CHILDHOOD COORDINATOR Corrine Vazquez MD LAB URINE ORDERABLES Performing Organization Address City/[facility]/ZIP Code Phon e Number [facility] [address] [place] [address] (ABNORMAL) Urine culture (clean catch) (12/23/2018 9:58 AM EARLY CHILDHOOD COORDINATOR) [facility] gist Method Time Signature Urine Culture Escherichia coli 12/25/2018 [place] 15,000 cfu/ml 9:15 AM [facility] [place] [facility] Specimen Anatomical Collection Method Collection Time Receive d Time (Source) Location / / Volume Laterality Urine, Clean 12/23/2018 9:58 12/24/2018 Catch AM EARLY CHILDHOOD COORDINATOR 12:18 PM EARLY CHILDHOOD COORDINATOR Narrative [facility] - 10/2018 9:16 AM EARLY CHILDHOOD COORDINATOR Patient does not have an Amoxicillin or PCN allergy Organism Antibiotic Method Susceptibility Escherichia coli Ampicillin >16 mcg/mL: Res istant Escherichia coli Ampicillin/Sulbactam >16/8 mcg/ mL: Resistant Escherichia coli Cefazolin 8 mcg/mL: Susce ptible Escherichia coli Ciprofloxacin <=1 mcg/mL: Kalee ceptible Escherichia coli Gentamicin <=4 mcg/mL: Kalee ceptible Escherichia coli Levofloxacin <=2 mcg/mL: Kalee ceptible Escherichia coli Nitrofurantoin <=32 mcg/mL: Fonseca sceptible Escherichia coli Piperacillin/Tazobactam <=16 mc g/mL: Susceptible Escherichia coli Tetracycline <=4 mcg/mL: Kalee ceptible Escherichia coli Trimeth/Sulfa >2/38 mcg/mL: R esistant Corrine Vazquez MD LAB MICROBIOLOGY - GENERAL O RDERABLES Performing Organization Address City/State/ZIP Code Phon e Number [facility] [address] [place] [address] (ABNORMAL) Urinalysis with reflex microscopic (12/23/2018 9:58 AM EARLY CHILDHOOD COORDINATOR) [facility] Method Time Signature Type CLEAN CATCH 12/23/2018 [facility] 10:24 AM EARLY CHILDHOOD COORDINATOR [place] Color, Urine YELLOW YELLOW 12/23/2018 [facility] 10:24 AM EARLY CHILDHOOD COORDINATOR [place] Clarity, CLEAR CLEAR 12/23/2018 [facility] Urine 10:24 AM EARLY CHILDHOOD COORDINATOR [place] Glucose, NEGATIVE NEGATIVE 12/23/2018 [facility] Urine mg/dL 10:24 AM EARLY CHILDHOOD COORDINATOR [place] Bilirubin, NEGATIVE NEGATIVE 12/23/2018 [facility] Urine 10:24 AM EARLY CHILDHOOD COORDINATOR [place] Ketones, NEGATIVE NEGATIVE 12/23/2018 [facility] Urine mg/dL 10:24 AM EARLY CHILDHOOD COORDINATOR [place] Specific 1.020 1.000 12/23/2018 [facility] [place], ->=1.030 10:24 AM EARLY CHILDHOOD COORDINATOR [place] Urine Blood, Urine NEGATIVE NEGATIVE 12/23/2018 [facility] 10:24 AM EARLY CHILDHOOD COORDINATOR [place] pH, Urine 5.5 5.0 - 7.0 12/23/2018 [facility] 10:24 AM EARLY CHILDHOOD COORDINATOR [place] Protein, NEGATIVE NEGATIVE-TRA 12/23/2018 [facility] Urine CE mg/dL 10:24 AM EARLY CHILDHOOD COORDINATOR [place] Urobilinogen, 0.2 0.2 - 1.0 12/23/2018 [facility] Urine E.U./dL 10:24 AM EARLY CHILDHOOD COORDINATOR [place] Nitrite, NEGATIVE NEGATIVE 12/23/2018 [facility] Urine 10:24 AM EARLY CHILDHOOD COORDINATOR [place] Leukocytes, TRACE (A) NEGATIVE 12/23/2018 [facility] Urine 10:24 AM EARLY CHILDHOOD COORDINATOR [place] Specimen Anatomical Collection Method Collection Time Receive d Time (Source) Location / / Volume Laterality Urine (Urine, 12/23/2018 9:58 12/23/2018 Clean Catch) AM EARLY CHILDHOOD COORDINATOR 9:58 AM EARLY CHILDHOOD COORDINATOR Corrine Vazquez MD LAB URINE ORDERABLES Performing Organization Address City/State/ZIP Code Phon e Number [facility] [place] [address] [place] [address] documented in this encounter Visit Diagnoses Diagnosis Frequency of micturition Urinary frequency documented in this encounter Care Teams Aircraft Structural Repair Mechanic Relationship Specialty Start Date End Date Patel, Adriane M, HOTEL ASSISTANT MANAGER, CLINICAL TRANSPLANT COORDINATOR PCP - General 09/22/17 07/06/19 [address] [place] [address] documented as of this encounter
--- OUTSIDE RECORDS SUMMARY | 2021-09-05 00:13 | XMS_ITS | Encounter Summary ---
:1945 Author Organization [facility] Address [address] [place] [address] Care Team Providers Name Role Phone Ronak Patel MONUMENT STONECUTTER, ELECTRON BEAM WELDER Primary Care Provider Encounter Details Date Type Department Care Team Description 12/25/2018 Orders Only [place] Corrine Vazquez MD [address] [place], [place] [address] [place], [place] [phone] (Wo rk) Social History Tobacco Use Types [...] 12/23/2018 organizations such as sabianist groups, unions, fraternal or athletic groups, or [...] Domitila, Management (02/05/2021 Abbie Murray, 11:19 AM TRIPOLER) RN Note: Formatting of this note is differe nt from the original. Routine Health Management Care Team Patient Care Team: Corrine Vazquez MD as [facility]CP - [facility] Yossi Potts, RN as Registered Nurse (Diabetes Education) Abbie Ramesh RN as Damper Worker Future Scheduled Appointments No future appointments. [...] on filedocumented in this encounter Care Teams Chief Compressor Station Engineer Relationship Specialty Start Date End Date Adriane Patel, MONUMENT STONECUTTER, ELECTRON BEAM WELDER PCP - General 09/22/17 07/06/19 100 [facility] [place] [address] documented as of this encounter
--- OUTSIDE RECORDS SUMMARY | 2021-09-05 00:13 | XMS_ITS | Encounter Summary ---
:1945 Author Organization [facility] Address [address] [place] [address] Care Team Providers Name Role Phone Ronak Patel ACETYLENE TORCH SOLDERER, FEED INSPECTION SUPERVISOR Primary Care Provider Reason for Visit Reason Onset Date Comments Med Refill 02/24/2019 Encounter Details Date Type Department Care Team Description 02/24/2019 Refill SE Endocrinology Bacilio Stewart, Type 2 diabetes mellitus [address] [place] [address] [address] complication, without [phone] [place] [address] insulin ([facility]) Social History Tobacco Use Types Packs/Day Years [...] this encounter Miscellaneous Notes Telephone Encounter - Kina Donato LPN - 02/24/2019 8:42 AM CST Pt's dose of basaglar has increased to 17 units daily from 15. Pharmacy requesting new rx to reflectthis change. Rx pended and forwarded to Dr Stewart. EL BUFFER documented in this encounter Plan of Treatment Not on filedocumented as of this encounter Goals Goal Patient Goal Associated Recent Patient-Stated? Author Type Problems Progress Routine Health General No change No Peter Ramesh (02/05/2021 Abbie Murray 11:19 AM ENAMEL BUFFER) RN Note: Formatting of this note is differe nt from the original. Routine Health Management Care Team Patient Care Team: Corrine Vazquez MD as PCP - General ([facility] Medicine) Yossi Potts, RN as Registered Nurse (Diabetes Education) Abbie Ramesh, ERA as Supplier Quality Engineer Future Scheduled Appointments No future appointments. Health Maintenance Health Maintenance Topic Date Due Urine Protein Screening 05/31/2020 Lipid Panel 09/05/2020 Glaucoma Screening 67+ Yr 12/25/2020 Ophthalmology Exam 12/25/2020 [facility] 01/12/2021 Hemoglobin A1C 01/24/2021 Diabetic Foot Exam 03/16/2021 Colorectal Cancer Screening: Colonoscop y 05/21/2021 Fall Risk Performed 06/05/2021 Mammogram 12/03/2021 COVID-19 Vaccine Completed [facility] Pneumococcal Vaccine: <64 Complete d [facility] Pneumococcal Vaccine: 65+ Years Co mpleted HPV Vaccines Aged Out Notes: Due: Urine Protein screening Eye exam AWV A1C Lipid panel documented as of this encounter Visit Diagnoses Diagnosis Type 2 diabetes mellitus with other spec ified complication, without long-term current use of insulin (HCC) documented in this encounter Care Teams Tractor Expert Relationship Specialty Start Date End Date Adriane Patel, ACETYLENE TORCH SOLDERER, FEED INSPECTION SUPERVISOR PCP - General 09/22/17 07/06/19 [address] [place] [address] documented as of this encounter
--- OUTSIDE RECORDS SUMMARY | 2021-09-05 00:13 | XMS_ITS | Encounter Summary ---
:1945 Author Organization [facility] Address [address] [place] [address] Care Team Providers Name Role Phone Ronak Patel COMMERCIAL CREDIT PORTFOLIO MANAGER, MATTRESS FINISHER Primary Care Provider Reason for Visit Consultation (Routine) - Closed Specialty Diagnoses / Procedures Referred By Contact Refer red To Contact Diagnoses Medicare annual wellness visit, initial Corrine Vazquez MD Care Coordination [address] [place], [place] [phone] Referral ID Status Reason Start Date Expiration Date Visits V isits Requested Authorized [id number] Closed Specialty 12/23/2018 99 99 Services Required Encounter Details Date Type Department Care Team Description 03/01/2019 Patient Outreach SE Care Coordination Abbie Ramesh Counseling and coordination of care (Primary Dx); [address] [place] [address] Terri RN Type 2 diabetes mellitus with other spec ified complication, with long-term current use of insulin ([facility]); [place] [address] [address] Rheumatoid arthritis, involv ing unspecified site, unspecified rheumatoid factor presence ([facility]) [phone] [place] [address] Social History Tobacco Use Types [...] 12/23/2018 organizations such as mu-ism groups, unions, [employer] or athletic groups, or school groups? How [...] encounter Progress Notes Abbie Ramesh RN - 03/01/2019 2:00 PM CST Continued Care Plan - Care Coordination Discussion Date: 03/01/2019 2:47 PM Completed CCM monthly follow up with Marcial Medication reviewed. She continues to work towards previously set goals. Today's discussion: ??? Spoke to Marcial via telephone. She had a follow up last week for her eyes. She states they are improving but will have to continue to do eye washes and drops indefinitely. ??? Marcial states she has her rheumatology appointment coming up this week. She goes once a month for infusions for rheumatoid arthritis. She has no complaints at this time. ??? Marcial states her blood sugars have been running around 120-130s. She states having a few numbers jump up into the 300s. She states when this happens, she will write down everything she has eaten that day. She has found the culprit to be bread. Discussed other lower carb options. Marcial will also walk around her house for at least 15 minutes to help lower her blood sugars as well. She states thiswill usually help lower her numbers. Follow-up plan: ??? Follow up next month or sooner if need arises Items for Provider to address: ??? None [...] 12/18/2019 ??? Fall Risk Performed 12/24/2019 ??? [facility] Annual Wellness 12/24/2019 ??? Colorectal Cancer Screening: Colonoscopy 05/21/2021 ??? HPV Vaccines Aged Out Lifestyle ??? Keep your medical appointments Future Appointments Date Time Provider Department Center 03/07/2019 10:00 AM JOSE DE JESUS [facility] Result Component ? ? Hemoglobin A1c < 7.0 8.0 8.7 8.5 8.5 9.0 Patient will work towards decreasing A1c to 7 within 6 months (June 2019) a.) Patient will check A1C every three months (Should be less than 7.0) b.) Patient will check blood glucose 2 times daily and report to direct care worker weekly c.) Patient will take medication as prescribed d.) Patient will exercise for 5 minutes 2 days per week e.) Patient will maintain a food diary f.) Patient will weigh daily and record g.) Patient will follow up with Endocrine Dr Stewart h.) Patient will schedule a foot exam: done i.) Patient will schedule an eye exam: done T OPERATOR documented in this encounter Plan of Treatment Not on filedocumented as of this encounter Goals Goal Patient Goal Associated Recent Patient-Stated? Author Type Problems Progress Routine Health General No change No Peter Ramesh (02/05/2021 Abbie Murray, 11:19 AM HOIST OPERATOR) RN Note: Formatting of this note is differe nt from the original. Routine Health Management Care Team Patient Care Team: Corrine Vazquez MD as PCP - General [facility] Yossi Potts, RN as Registered Nurse (Diabetes Education) Abbie Ramesh, RN as Spring Bender Future Scheduled Appointments No future appointments. Health Maintenance Health Maintenance Topic Date Due Urine Protein Screening 05/31/2020 Lipid Panel 09/05/2020 Glaucoma Screening 67+ Yr 12/25/2020 Ophthalmology Exam 12/25/2020 [facility] Annual Wellness 01/12/2021 Hemoglobin A1C 01/24/2021 Diabetic Foot Exam 03/16/2021 Colorectal Cancer Screening: Colonoscop y 05/21/2021 Fall Risk Performed 06/05/2021 Mammogram 12/03/2021 COVID-19 Vaccine Completed [facility] Pneumococcal Vaccine: <64 Complete d [facility] Pneumococcal Vaccine: 65+ [...] Rheumatoid arthritis, involving unspecif ied site, unspecified rheumatoid factor presence documented in this encounter Care Teams Scraper Meat Relationship Specialty Start Date End Date Adriane Patel APRN, MATTRESS FINISHER PCP - General 09/22/17 07/06/19 100 [facility] [place] [address] documented as of this encounter
--- OUTSIDE RECORDS SUMMARY | 2021-09-05 00:13 | XMS_ITS | Encounter Summary ---
:1945 Author Organization [facility] Address [address] [place] [address] Care Team Providers Name Role Phone Ronak Patel INCENDIARIES SUPERVISOR, MAINTENANCE SUPERVISOR Primary Care Provider Reason for Visit Reason Comments Immunizations FLU Encounter Details Date Type Department Care Team Description 01/17/2019 Immunization Chuckie Pierre Immunization due (Primary [address] [place]) [place], [place] [address] Social History Tobacco Use [...] or relatives? How often do you attend sikhism or More than 4 times per year 12/23/2018 sikhism services? Do you belong to any clubs or No 12/23/2018 organizations such as sikhism groups, unions, fraternal or athletic groups, or [...] documented as of this encounter Progress Notes Lana Knight LPN - 01/17/2019 10:30 AM CST Patient denies a previous reaction to any vaccines. Reviewed screening questionnaire with patient prior to administration. VIS given. TECHNOLOGIST documented in this encounter Plan of Treatment Not on filedocumented as of this encounter Goals Goal Patient Goal Associated Recent Patient-Stated? Author Type Problems Progress Routine Health General No change No Peter Ramesh (02/05/2021 Abbie Murray, 11:19 AM FOOD TECHNOLOGIST) RN Note: Formatting of this note is differe nt from the original. Routine Health Management Care Team Patient Care Team: Corrine Vazquez MD as [facility] - [facility] Yossi Potts, RN as Registered Nurse (Diabetes Education) Abbie Ramesh, ERA as Senior Administrative Support Future Scheduled Appointments No future appointments. Health [...] as of this encounter Visit Diagnoses Diagnosis Immunization due - Primary documented in this encounter Care Teams Compressor Operator Relationship Specialty Start Date End Date Adriane Patel, INCENDIARIES SUPERVISOR, MAINTENANCE SUPERVISOR PCP - General 09/22/17 07/06/[address] [place] [address] [place] [address] documented as of this encounter
--- OUTSIDE RECORDS SUMMARY | 2021-09-05 00:13 | XMS_ITS | Encounter Summary ---
:1945 Author Organization [facility] Address [address] [place] [address] Care Team Providers Name Role Phone Ronak Patel TRUCK DRIVING, COMPUTER NETWORK AND SYSTEMS ENGINEER Primary Care Provider Reason for Visit Reason Comments Sinusitis Conjunctivitis returned after stopping anti biotics Encounter Details Date Type Department Care Team Description 12/01/2018 Office Visit Napoleon Corrine Vazquez Acute conjunctivitis of [address] [place] both eyes, unspecified [place], [place] [address] acute conju nctivitis type [address] [place] (Primary Dx) [phone] [place] [address] Social History Tobacco Use Types Packs/Day Years [...] Sign Reading Time Taken Comments Blood Pressure 142/80 12/01/2018 1:30 PM CDT Pulse 76 12/01/2018 1:30 PM CDT Temperature 36.2 ??C (97.2 ??F) 12/01/2018 1:30 PM CDT Respiratory Rate 16 12/01/2018 1:30 PM CDT Oxygen Saturation - - Inhaled Oxygen Concentration - - Weight 83.7 kg (184 lb 9.6 oz) 12/01/2018 1:30 PM CDT Height 161.5 cm (5' 3.58) 12/01/2018 1:30 PM CDT Body Mass Index 32.1 12/01/2018 1:30 PM CDT documented in this encounter Progress Notes Corrine Vazquez MD - 12/01/2018 1:20 PM CDT Estab Patient Visit Subjective Patient ID: Marcial Adams is a 73 y.o. female. HPI patient is here today because of ongoing continued bilateral eye wateriness. The patient is our 73-year-old individual who was here approximately 10 days or so ago at that pointin time there was some question of early sinus infection along with bilateral conjunctivitis. She was placed on amoxicillin twice a day along with gentamicin eyedrops. The sinus issues basically cleared up and the eye issues which were watery eyes along with some mattering and crusting is initially cleared but now is kind of returned and she has again bilateral watery eyes little irritated eyes butnot painful not sore a little bit of crusting still by morning time. She is a little bit concerned because every month she gets an infusion of Orencia via her farm facility manager secondary to rheumatoid arthritis. She has been on this medication greater than 1 year with good positive results. However if she is ill if she is sick if she is on antibiotics she has to wait until she is better before she can receive the next infusion and she has had to cancel the one this week already. Again at this point time no fevers no chills no cough no significant sinus drainage it just that hereyes continue to water a little bit more than she did like and they still wake up having a little bit of crusting or mucus. The eyes do not hurt but she does have to carry a Kleenex around to dab her eyes periodically throughout the day. Review of Systems Objective Physical Exam She is alert she appears comfortable her vital signs show blood pressure 142/80 pulse is 76 temp 97.2 Both her eyes have a little extra watery fluid retention but not draining down her cheeks at all. The conjunctiva is not real irritated looking and her pupils move equally without particular problems. Her sinuses are not particularly tender Her throat is clear Assessment/Plan Diagnoses and all orders for this visit: Acute conjunctivitis of both eyes, unspecified acute conjunctivitis type - sulfacetamide (BLEPH-10) 10 % ophthalmic solution; Administer 2 drops into affected eye(s) 4 (four) times a day for 7 days The overall assessment is bilateral conjunctivitis and question whether there is a combination of virus and/or bacteria versus even the possibility of a minor plugging of both tear ducts but this wouldbe uncommon to have both plugged at the same time. I suspect most is more viral though the fact that she is getting some crusting a little thicker mucus suggest possible bacterial component as well. Therefore we will treat this with a sulfa eyedrop 4 times a day for 7 days. If things do not improve or gets worse she will let us know. She should certainly be able to have her Orencia infusion next week as currently scheduled. Margareth Sanchez RN - 12/01/2018 1:20 PM CDT Done. documented in this encounter Plan of Treatment Not on filedocumented as of this encounter Visit Diagnoses Diagnosis Acute conjunctivitis of both eyes, unspe cified acute conjunctivitis type - Primary documented in this encounter Care Teams Home Stager Relationship Specialty Start Date End Date Adriane Patel, TRUCK DRIVING, COMPUTER NETWORK AND SYSTEMS ENGINEER PCP - General 09/22/17 07/06/19 100 [facility] [place] [address] documented as of this encounter
--- OUTSIDE RECORDS SUMMARY | 2021-09-05 00:13 | XMS_ITS | Encounter Summary ---
:1945 Author Organization [facility] Address [address] [place] [address] Care Team Providers Name Role Phone Ronak Patel APRN, PUBLIC RELATIONS PLAYER Primary Care Provider Encounter Details Date Type Department Care Team Description 01/05/2019 Patient Outreach SE Care Coordination Abbie Ramesh, [address] [facility] [place] [address] [place] [address] [place] [address] Social History Tobacco Use Types [...] More than 4 times per year 12/23/2018 jehovah's witness services? Do you belong to any clubs [...] encounter Progress Notes Abbie Ramesh RN - 01/05/2019 1:41 PM CST Care Plan - Care Coordination Contact Date: 01/05/2019 1:41 PM Called for follow up and progress; Left message to call back. When patient returns phone call, wouldlike to discuss: 1. Blood sugar numbers 2. Bladder infection RBARIC TECHNICIAN documented in this encounter Plan of Treatment Not on filedocumented as of this encounter Goals Goal Patient Goal Associated Recent Patient-Stated? Author Type Problems Progress Routine Health General No change No Peter Ramesh (02/05/2021 Abbie Murray, 11:19 AM HYPERBARIC TECHNICIAN) RN Note: Formatting of this note is differe nt from the original. Routine Health Management Care Team Patient Care Team: Corrine Vazquez MD as PCP - General ([facility] Medicine) Yossi Potts, ERA as Registered Nurse (Diabetes Education) Abbie Ramesh, RN as Engineering Intern Future Scheduled Appointments No future appointments. Health [...] on filedocumented in this encounter Care Teams Sanitation Superintendent Relationship Specialty Start Date End Date Adriane Patel, HARD TILE SETTER APPRENTICE, PUBLIC RELATIONS PLAYER PCP - General 09/22/17 07/06/19 100 [place] [address] documented as of this encounter
--- OUTSIDE RECORDS SUMMARY | 2021-09-05 00:13 | XMS_ITS | Encounter Summary ---
:1945 Author Organization [facility] Address [address] [place] [address] Care Team Providers Name Role Phone Ronak Patel HIGH SCHOOL SCIENCE TEACHER, PARALEGALS Primary Care Provider Reason for Visit Reason Comments Diabetes 3 month f/u Encounter Details Date Type Department Care Team Description 03/07/2019 Office Visit SE Endocrinology Bacilio Stewart, Type 2 diabetes mellitus wit h other specified complication, with long-term current use of insulin (HCC) (Primary Dx); [address] [place] [address] MBBS Type 2 diabetes mellitus without complic ation, without long-term current use of insulin (HCC); [place] [address] SE Essential hypertension; [phone] [place], [place] Stage 3 chroni c kidney disease (HCC); [address] Mixed hyperlipidemia; [phone] Rheumatoid arth ritis, involving unspecified site, unspecified rheumatoid factor presence (HCC) (Work) Social History Tobacco Use Types Packs/Day Years [...] Sign Reading Time Taken Comments Blood Pressure 128/70 03/07/2019 9:55 AM PRINTED CIRCUIT BOARD PCB DRAFTSMAN Pulse 90 03/07/2019 9:55 AM PRINTED CIRCUIT BOARD PCB DRAFTSMAN Temperature 36.4 ??C (97.6 ??F) 03/07/2019 9:55 AM PRINTED CIRCUIT BOARD PCB DRAFTSMAN Respiratory Rate 18 03/07/2019 9:55 AM PRINTED CIRCUIT BOARD PCB DRAFTSMAN Oxygen Saturation - - Inhaled Oxygen Concentration - - Weight 83.9 kg (185 lb) 03/07/2019 9:55 AM PRINTED CIRCUIT BOARD PCB DRAFTSMAN Height 157.5 cm (5' 2) 03/07/2019 9:55 AM PRINTED CIRCUIT BOARD PCB DRAFTSMAN Body Mass Index 33.84 03/07/2019 9:55 AM PRINTED CIRCUIT BOARD PCB DRAFTSMAN documented in this encounter Patient Instructions Patient InstructionsJOSE DE JESUS Austin - 03/07/2019 10:00 AM CST - Start Ozempic 0.25 mg weekly. Increase to 0.5 mg weekly after 4 weeks, if tolerated. Stop Januvia when started Ozempic. - Glipizide is changed to Glipizide ER 20 mg daily in the morning. - Continue with the same dose of insulin for now. - Check sugars 1-2 times a day, fasting and alternating before meals and bedtime. - Stay in touch with Denny Potts with sugars update. - Watch your diet for excess carbs and avoid snacking. - Physical activity/exercise as tolerated. - Follow up in 3 months, with labs. TED CIRCUIT BOARD PCB DRAFTSMAN documented in this encounter Progress Notes JOSE DE JESUS Austin - 03/07/2019 10:00 AM CST Estab Patient Visit Patient: Marcial Adams 73 y.o. female 1945 Date of Service: 03/07/19 Reason for visit: Marcial Adams is a 73 y.o. female presenting for follow up of diabetes. History of presenting illness: Marcial Adams is accompanied by her today. She was last seenin 11/2018. She was diagnosed with diabetes in 2007. Most recent a1c was 8.8% on 03/01/19, up from 8% in 10/2018. Current diabetes regimen includes Glipizide 10 mg BID and Januvia 50 mg daily. She has also been on basal insulin, currently Glargine 17 units daily. Our life educator, Denny Potts, has been in touch with her and adjusting her insulin dose. Metformin was not restarted due to borderline kidney function. She reports compliance with her diabetes regimen. Glucometer showed average BG 194 with SD 72, range 100-386. Morning sugars were usually in the good range but afternoon/evening sugars mostly high. She usually checks 2-3 times a day. No recent episodes of hypoglycemia. She usually eats 3 meals/day and snack in the morning. She acknowledges dietary indiscretion sometimes. She states that her sugars high in the morning when eating breads in the evening. She denies eating or snacking before bedtime. No smoking. Last eye exam showed no retinopathy in [place]. Dorsal aspect of toes hurts sometimes. Denies any numbness or tingling sensation in feet. No skin changes or diabetic foot ulcers. No regular exercise these days. PM/SH: Past Medical History: Diagnosis Date ??? [...] More than three times a week Attends methodist service: More than 4 times per year [...] Denies any nausea or vomiting. - Diarrhea off and on. - Denies any chest pain or shortness of breath. - History of RA and Raynaud's, numbness/tingling in hands off and on. - Otherwise 10 point ROS was done and was negative except mentioned above. Physical Examination: Visit Vitals BP 128/70 Pulse 90 Temp 36.4 ??C (97.6 ??F) Resp 18 Ht 1.575 m (5' 2) Wt 83.9 kg (185 lb) BMI 33.84 kg/m?? Smoking Status Never Smoker BSA 1.92 m?? Constitutional: Appears well, NAD HEENT: AT/NC, EOMI Respiratory: Unlabored breathing Neurological: AAOx3 Skin: No dry skin, normal hair distribution, no hyperpigmentation Psych: Normal mood, pleasant affect. Laboratory Work up: Reviewed Imaging: Reviewed Assessment and Plan: 1- Diabetes Mellitus type 2: Suboptimal control. Recent a1c has again increased to 8.8%. Morning/fasting sugars are generally reasonable but afternoon/evening sugars are high. No hypoglycemia. - I had a lengthy discussion with the patient, regarding various medication options to improve glycemic control, including GLP1ra and prandial insulin. I reviewed mechanism of action and medication risks and benefits with her. She is willing to try an GLP1ra. - Start Ozempic 0.25 mg weekly and increase to 0.5 mg weekly after 4 weeks, if tolerated. She received medication teaching today. If ozempic is not adequately covered by her insurance, will switch to adifferent agent. She was advised to stop januvia, when started ozempic. - Glipizide was changed to ER formulation, 20 mg daily. - Continue insulin glargine dose to 17 units daily for now. She was advised to cut back on its dose,if noticing hypoglycemia after starting ozempic. She will remain in contact with diabetes education for continued insulin dose adjustments. - Patient was advised to continue to check sugars 1-2 times a day, fasting and alternating before meals and bedtime. - Watch your diet for excess carbs and avoid snacking. - Physical activity/exercise as tolerated. 2- Diabetes related complications: - Lipid: LDL 61 in 07/2018. Has been prescribed rosuvastatin. - No microalbuminuria in 02/2017. She has CKD. Creatinine was 1.3, eGFR 40 in 10/2018. She is on an ACEI. - No smoking - Last eye exam showed no retinopathy in 06/2018. - No skin changes or diabetic foot ulcers. - HTN. Reasonable control on therapy. - No neuropathy, had normal monofilament exam. Follow up in 3 months, with labs. Reviewed with the patient and her in detail, they verbalized understanding and agreed with the plan. More than 50% of this 40 minute visit was spent counseling the patient regarding evaluation and management of her endocrine problems and coordination of care. Bacilio Stewart MD Staff Head Of Precision Targeting TED CIRCUIT BOARD PCB DRAFTSMAN Adriane Patel APRN, CNP - 03/07/2019 10:00 AM CST Reviewed. TED CIRCUIT BOARD PCB DRAFTSMAN documented in this encounter Plan of Treatment Not on filedocumented as of this encounter Goals Goal Patient Goal Associated Recent Patient-Stated? Author Type Problems Progress Routine Health General No change No Peter Ramesh (02/05/2021 Abbie Murray, 11:19 AM PRINTED CIRCUIT BOARD PCB DRAFTSMAN) RN Note: Formatting of this note is differe nt from the original. Routine Health Management Care Team Patient Care Team: Corrine Vazquez MD as PCP - [facility]) Yossi Potts, RN as Registered Nurse (Diabetes Education) Abbie Ramesh RN as Enamel Finisher Future Scheduled Appointments No future appointments. Health Maintenance Health Maintenance Topic Date Due Urine Protein Screening 05/31/2020 Lipid Panel 09/05/2020 Glaucoma Screening 67+ Yr 12/25/2020 Ophthalmology Exam 12/25/2020 [facility] Annual Wellness 01/12/2021 Hemoglobin A1C 01/24/2021 Diabetic Foot Exam 03/16/2021 Colorectal Cancer Screening: Colonoscop y 05/21/2021 Fall Risk Performed 06/05/2021 Mammogram 12/03/2021 COVID-19 Vaccine Completed [facility] Pneumococcal Vaccine: <64 Complete d OM Pneumococcal Vaccine: 65+ Years Co mpleted HPV Vaccines Aged Out Notes: Due: Urine Protein screening Eye exam AWV A1C Lipid panel documented as of this encounter Results Microalbumin/Creatinine Ratio (06/01/2019 8:50 AM CDT) P athologist Signature Microalbumin,m 15.3 0.0 - 16.6 06/01/2019 [facility] g/day mg/L 12:50 PM CDT [facility] Comment: . Creatinine, Urine 148 mg/dL 06/01/2019 12:[address] [facility] Comment: No established reference range. Microalb/Creat Ratio 10 0 - 24 mg/g 06/01/2019 12: [address] [facility] Specimen Anatomical Collection Method Collection Time Receive d Time (Source) Location / / Volume Laterality Urine 06/01/2019 8:50 06/01/2019 AM CDT 12:11 PM CDT Bacilio Stewart [facility] LAB URINE ORDERABLES Performing Organization Address City/State/ZIP Code Phon e Number [facility] [address] [place] [phone] (ABNORMAL) Basic metabolic panel (06/01/2019 8:48 AM CDT) P athologist Signature Sodium 140 135 - 145 06/01/2019 [facility] [place] mmol/L 10:10 AM CDT [place] Potassium 4.0 3.5 - 5.1 06/01/2019 [facility] [place] mmol/L 10:10 AM CDT [place] Comment: . Chloride 104 98 - 107 mmol/L 06/01/2019 10:10 AM CDT [facility] [place] Comment: . CO2 29 22 - 29 mmol/L 06/01/2019 10:10 AM CDT [facility] [place] Comment: . Creatinine 1.3 (H) 0.4 - 1.2 mg/dL 06/01/2019 10:10 AM CDT [facility] [place] Comment: . BUN 32 (H) 5 - 25 mg/dL 06/01/2019 10:10 AM CDT [facility] [place] Comment: . Glucose 209 (H) 70 - 100 mg/dL 06/01/2019 10:10 AM [facility] [place] CDT Calcium, Total,S 9.7 8.4 - 10.2 mg/dL 06/01/2019 10:10 AM [facility] [place] CDT Comment: . Fasting? No 06/01/2019 8:48 AM CDT [facility] [place] Specimen Anatomical Collection Method Collection Time Receive d Time (Source) Location / / Volume Laterality Blood 06/01/2019 8:48 06/01/2019 AM CDT 8:48 AM CDT Bacilio [facility] LAB BLOOD ORDERABLES Performing Organization Address City/State/ZIP Code Phon e Number [facility] [place] [address] [place] [id number] (ABNORMAL) Hemoglobin A1c (06/01/2019 8:48 AM CDT) Analysis Performed At Patho logist Time Signature Hemoglobin A1C 8.5 (H) 4.0 - 5.6 06/01/2019 [place] % A1C 12:37 PM CDT [facility] Comment: Reference Range 4.0-5.6% is [...] 06/01/2019 AM CDT 12:11 PM CDT Bacilio [facility] LAB BLOOD ORDERABLES Performing Organization Address City/State/ZIP Code Phon e Number [facility] [address] [place] [address] documented in this encounter Visit Diagnoses Diagnosis Type 2 diabetes mellitus with other spec ified complication, with long-term current use of insulin (HCC) - Primary Type 2 diabetes mellitus without complic ation, without long-term current use of insulin (HCC) Essential hypertension Unspecified essential hypertension Stage 3 chronic kidney disease (HCC) Mixed hyperlipidemia Rheumatoid arthritis, involving unspecif ied site, unspecified rheumatoid factor presence documented in this encounter Care Teams Manager Mortgage Relationship Specialty Start Date End Date Adriane Patel APRN, [place] PCP - General 09/22/17 07/06/19 100 [facility] [place] [address] documented as of this encounter
--- OUTSIDE RECORDS SUMMARY | 2021-09-05 00:13 | XMS_ITS | Encounter Summary ---
:1945 Author Organization [facility] Address [address] [place] [address] Care Team Providers Name Role Phone Ronak Patel BLOCK MASON, BEVERAGE DISTILLER Primary Care Provider Reason for Visit Reason Comments Eye Problem blurry vision Encounter Details Date Type Department Care Team Description 12/16/2018 Office Visit Chuckie Pierre Shantell Carl Serg, Vision loss (Primary [address] MD Dx) [place], [place] [address] Social History Tobacco Use [...] More than 4 times per year 12/23/2018 adventist services? Do you belong to any clubs [...] Sign Reading Time Taken Comments Blood Pressure 124/60 12/16/2018 2:10 PM CDT Pulse 72 12/16/2018 2:10 PM CDT Temperature 36.4 ??C (97.5 ??F) 12/16/2018 2:10 PM CDT Respiratory Rate 16 12/16/2018 2:10 PM CDT Oxygen Saturation - - Inhaled Oxygen Concentration - - Weight 83.5 kg (184 lb) 12/16/2018 2:10 PM CDT Height - - Body Mass Index 32 12/07/2018 2:28 PM CDT documented in this encounter Progress Notes Carl Stinson MD - 12/16/2018 2:00 PM CDT Estab Patient Visit Subjective This 73-year-old woman presents stating that she has had this discharge and irritation in her eyes for the last 3 weeks. She feels that her vision has decreased. She has been treated with ocular antibiotics without improvement. She has been seen by putter in and examination was essentially negative. She however is fairly certain that her vision has decreased. The problem is that she is on immunosuppressive drugs for her rheumatoid arthritis and also has diabetes mellitus. She denies any discharge at the moment. Current Outpatient Medications: ??? Abatacept (ORENCIA IV), Infuse into a venous catheter every 30 (thirty) days, Disp: , Rfl: ??? ACCU-CHEK SIDDHARTH PLUS test strip, USE TO TEST BLOOD GLUCOSE 3 TIMES A DAY, Disp: 300 each, Rfl: 3 ??? ACCU-CHEK FASTCLIX LANCETS misc, Check blood glucose 4 times a day, [...] under the tongue, Disp: , Rfl: ??? rosuvastatin (CRESTOR) 5 MG tablet, Take 0.5 tablets by mouth 1 (one) time each day, Disp: , Rfl: ??? SITagliptin (JANUVIA) 50 MG tablet, Take 1 tablet (50 mg total) by mouth 1 (one) time each day,Disp: 90 tablet, Rfl: 3 ??? erythromycin (ROMYCIN) 5 MG/GM ophthalmic ointment, Apply to affected eye(s) 4 (four) times a day for 7 days (Patient not taking: Reported on 12/16/2018), Disp: 3.5 g, Rfl: 0 ??? onrkgjvb-buizctolh-owgikrqljndrn (MAXITROL) 3.5-36712-0.1 ophthalmic suspension, Administer 1 drop into affected eye(s) 4 (four) times a day Both eyes, Disp: , Rfl: ??? pen needle, diabetic 31G X 5 MM misc, Use to inject insulin once a day, Disp: 100 each, Rfl: 3 Objective Visit Vitals BP 124/60 (BP Location: Left arm, Patient Position: Sitting) Pulse 72 Temp 36.4 ??C (97.5 ??F) (Temporal) Resp 16 Wt 83.5 kg (184 lb) BMI 32.00 kg/m?? Smoking Status Never Smoker BSA 1.94 m?? General appearance is that of a well-developed female no acute distress. Examination of her eyelids does not reveal any crusting or discharge. The sclera and conjunctiva appear clear. The pupils are widely dilated from her recent exam by the putter in Assessment 1. Persistent eye drainage with reported vision loss. 2. Immunosuppressant. Plan 1. I am concerned about her complaints about decreased vision. She has spoken to her elder counselor and the elder counselor had recommended that she see MD. I discussed this with her and felt that the MD she needs to see as an banquet captain. She is in agreement and I set her up with appointment Dr. Hadley in [place] for tomorrow. 2. When it settles down she will get her flu shot. documented in this encounter Plan of Treatment Not on filedocumented as of this encounter Visit Diagnoses Diagnosis Vision loss - Primary Unspecified visual loss documented in this encounter Care Teams Cad Drafter Relationship Specialty Start Date End Date Adriane Patel, BLOCK MASON, BEVERAGE DISTILLER PCP - General 09/22/17 07/06/19 100 [place] [address] documented as of this encounter
--- OUTSIDE RECORDS SUMMARY | 2021-09-05 00:13 | XMS_ITS | Encounter Summary ---
:1945 Author Organization [facility] Address [address] [place] [address] Care Team Providers Name Role Phone Ronak Patel TRAINING AND DEVELOPMENT ASSISTANT, AUTO MECHANICS INSTRUCTOR Primary Care Provider Reason for Visit Reason Onset Date Comments UTI 12/07/2018 Encounter Details Date Type Department Care Team Description 12/07/2018 Telephone [place] Adriane Patel, UTI [address] TRAINING AND DEVELOPMENT ASSISTANT, AUTO MECHANICS INSTRUCTOR [place], [place] [address] [address] [facility] [address] [phone] [place], [place] [address] Social History Tobacco Use [...] Telephone Encounter - Margareth Sanchez RN - 12/07/2018 12:38 PM CDT Patient on the schedule today to see Suresh. Telephone Encounter - Phoebe Donohue - 12/07/2018 9:30 AM CDT Patient would like to speak to a nurse about UTI and past antibiotic. Please call her at [phone]. documented in this encounter Plan of Treatment Not on filedocumented as of this encounter Visit Diagnoses Not on filedocumented in this encounter Care Teams Bar Porter Relationship Specialty Start Date End Date Adriane Patel APRN, AUTO MECHANICS INSTRUCTOR PCP - General 09/22/17 07/06/19 100 [facility] [place] [address] documented as of this encounter
--- OUTSIDE RECORDS SUMMARY | 2021-09-05 00:13 | XMS_ITS | Encounter Summary ---
:1945 Author Organization [facility] Address [address] [place] [address] Care Team Providers Name Role Phone Ronak Patel APRN, CERTIFIED LOW VISION THERAPIST Primary Care Provider Encounter Details Date Type Department Care Team Description 12/02/2018 Telephone SE Endocrinology Bacilio Stewart MBBS [address] [place] [address] [place] [address] [phone] (Wo rk) Social History Tobacco Use Types [...] this encounter Miscellaneous Notes Telephone Encounter - JOSE DE JESUS [place] - 12/05/2018 10:25 PM CDT Thank you. Telephone Encounter - Ene Cortez - 12/02/2018 8:37 AM CDT Patient and Dr. Stewart discussed about prices during last office visit for medication. Patient stated that the benavidez that she paid for Basaglar was $79.55 and Januvia was $113.82. Patient wanted to let Dr. Stewart know. FYI documented in this encounter Plan of Treatment Not on filedocumented as of this encounter Visit Diagnoses Not on filedocumented in this encounter Care Teams Playground Supervisor Relationship Specialty Start Date End Date Adriane Patel, HEAD PORTER, CERTIFIED LOW VISION THERAPIST PCP - General 09/22/17 07/06/[address] [place] [address] documented as of this encounter
--- OUTSIDE RECORDS SUMMARY | 2021-09-05 00:13 | XMS_ITS | Encounter Summary ---
:1945 Author Organization [facility] Address [address] [place] [address] Care Team Providers Name Role Phone Ronak Patel RESIDENT MANAGER, RETAIL SUPERVISOR Primary Care Provider Encounter Details Date Type Department Care Team Description 12/24/2018 Orders Only [place] Corrine Vazquez MD [address] [place], [place] [address] [place], [place] [phone] (Wo rk) Social History Tobacco Use Types [...] Domitila, Management (02/05/2021 Abbie Murray, 11:19 AM QUALITY MANAGER) RN Note: Formatting of this note is differe nt from the original. Routine Health Management Care Team Patient Care Team: Corrine Vazquez MD as PCP - [facility] Yossi Potts, RN as Registered Nurse (Diabetes Education) Abbie Ramesh RN as Emergency Medical Technician Basic Future Scheduled Appointments No future appointments. Health [...] on filedocumented in this encounter Care Teams Human Factors Ergonomist Relationship Specialty Start Date End Date Adriane Patel, RESIDENT MANAGER, RETAIL SUPERVISOR PCP - General 09/22/17 07/06/19 [address] [facility] [place] [address] documented as of this encounter
--- OUTSIDE RECORDS SUMMARY | 2021-09-05 00:13 | XMS_ITS | Encounter Summary ---
:1945 Author Organization [facility] Address [address] [place] [address] Care Team Providers Name Role Phone Ronak Paetl ADOBE CQ DEVELOPER, AUTOMATION QA TESTER Primary Care Provider Reason for Visit Reason Comments Female Dysuria Encounter Details Date Type Department Care Team Description 12/23/2018 Office Visit [place] Corrine Herrera Frequency of micturition (Pr imary Dx); [address] [place] Raynaud's disease without gangrene [place], [place] [address] [place] [address] Social History Tobacco Use Types Packs/Day Years [...] Sign Reading Time Taken Comments Blood Pressure 152/82 12/23/2018 9:04 AM LANDFILL GAS COLLECTION OPERATOR Pulse 72 12/23/2018 9:04 AM LANDFILL GAS COLLECTION OPERATOR Temperature 36.1 ??C (97 ??F) 12/23/2018 9:04 AM LANDFILL GAS COLLECTION OPERATOR Respiratory Rate 12 12/23/2018 9:04 AM LANDFILL GAS COLLECTION OPERATOR Oxygen Saturation - - Inhaled Oxygen Concentration - - Weight 83.2 kg (183 lb 8 oz) 12/23/2018 9:04 AM LANDFILL GAS COLLECTION OPERATOR Height - - Body Mass Index 31.91 12/07/2018 2:28 PM CDT documented in this encounter Progress Notes Corrine Herrera MD - 12/23/2018 9:00 AM CST Estab Patient Visit Subjective Patient ID: Marcial Adams is a 73 y.o. female. HPI patient is here today because of continued minor frequency of urination a little terminal burning with urination. The patient was here couple weeks ago with similar symptoms. A urine sample was essentially normal except for little bit of moderate blood which is 4-10 red blood cells per high-power field. She was started on antibiotics for couple days pending a culture of the culture came back negative and antibiotics were stopped. However she is concerned little bit about the blood in the urine and the fact that her symptoms have basically continued and mostly it may be a little frequency but more importantlya little bit of burn or irritation with terminal urination. She is had no fever or chills no particular backache. She has had one history of kidney stones more than 10 years ago and passed by itself her symptoms currently do not suggest a kidney stone. However a kidney stone that would be up in the kidney could possibly cause hematuria or even potential for bladder stone. The patient also states that she has been having some problems for the last couple years more so more recently with her fingers getting cold sometimes a little bluish sometimes a little white he is this can happen in the summertime but more often probably occurs when it is cold outside in the wintertime. She does also have a history of rheumatoid arthritis she sees a broom maker once a month for thisfor her infusions and we have asked her to discuss with the broom maker the potential that she has Raynaud's which I suspect she does in the treatment for that is usually verapamil and if this is confirmed from the broom maker we could certainly start her on the verapamil low dose and then move her up until hopefully she has some improvement though her course is not a cure. We did acquire a urine sample from the patient and the urine sample was pretty much normal and no blood this time we will do a culture just to be sure but this point time will not treat unless the culture is positive. We also discussed the issue that this might be related to an atrophic vaginitis and if her urine culture is negative which I suspect they will be we will discuss with her possibly replacement with the estrogen cream or vaginal estrogen suppository Vagifem to see if that will eventually help. Review of Systems Objective Physical Exam Assessment/Plan Diagnoses and all orders for this visit: Frequency of micturition - Urinalysis with reflex microscopic; Future - Urine culture (clean catch); Future Raynaud's disease without gangrene Again the assessment is Frequency of micturition with a little bit of painful urination terminal urination secondary diagnosis of her nose and the plan is as stated. Consult time was 15 minutes and all 15 minutes was spent in discussion of the above 2 concerns. FILL GAS COLLECTION OPERATOR documented in this encounter Miscellaneous Notes Addendum Note - Corrine Herrera MD - 12/23/2018 9:00 AM LANDFILL GAS COLLECTION OPERATOR Addended by: Corrine HERRERA on: 12/25/2018 10:03 AM Modules accepted: Orders FILL GAS COLLECTION OPERATOR documented in this encounter Plan of Treatment Not on filedocumented as of this encounter Goals Goal Patient Goal Associated Recent Patient-Stated? Author Type Problems Progress Routine Health General No change Peter Monzon (02/05/2021 Abbie Murray, 11:19 AM LANDFILL GAS COLLECTION OPERATOR) RN Note: Formatting of this note is differe nt from the original. Routine Health Management Care Team Patient Care Team: Corrine Herrera MD as PCP - General (F amily Medicine) Yossi Potts, RN as Registered Nurse (Diabetes Education) Abbie Ramesh, ERA as Carbon Capture Power Plant Manager Future Scheduled Appointments No future appointments. [...] documented as of this encounter Results (ABNORMAL) Urine culture (clean catch) (12/23/2018 9:58 AM LANDFILL GAS COLLECTION OPERATOR) [facility] Method Time Signature Urine Culture Escherichia coli 12/25/2018 DARIEN 15,000 cfu/ml 9:15 AM LANDFILL GAS COLLECTION OPERATOR [facility] () [facility] Specimen Anatomical Collection Method Collection Time Receive d Time (Source) Location / / Volume Laterality Urine, Clean 12/23/2018 9:58 12/24/2018 Catch AM LANDFILL GAS COLLECTION OPERATOR 12:18 PM LANDFILL GAS COLLECTION OPERATOR Narrative [facility] - 10/2018 9:16 AM LANDFILL GAS COLLECTION OPERATOR Patient does not have an Amoxicillin or [...] coli Trimeth/Sulfa >2/38 mcg/mL: R esistant Corrine Herrera MD LAB MICROBIOLOGY - GENERAL O RDERABLES Performing Organization Address City/State/ZIP Code Phon e Number [facility] [address] [place] [address] (ABNORMAL) Urinalysis with reflex microscopic (12/23/2018 9:58 AM LANDFILL GAS COLLECTION OPERATOR) [facility] Method Time Signature Type CLEAN CATCH 12/23/2018 [facility] [place] 10:24 AM LANDFILL GAS COLLECTION OPERATOR [place] Color, Urine YELLOW YELLOW 12/23/2018 [facility] [place] 10:24 AM LANDFILL GAS COLLECTION OPERATOR [place] Clarity, CLEAR CLEAR 12/23/2018 [facility] [place] Urine 10:24 AM LANDFILL GAS COLLECTION OPERATOR [place] Glucose, NEGATIVE NEGATIVE 12/23/2018 [facility] Urine mg/dL 10:24 AM LANDFILL GAS COLLECTION OPERATOR [place] Bilirubin, NEGATIVE NEGATIVE 12/23/2018 [facility] Urine 10:24 AM LANDFILL GAS COLLECTION OPERATOR [place] Ketones, NEGATIVE NEGATIVE 12/23/2018 [facility] Urine mg/dL 10:24 AM LANDFILL GAS COLLECTION OPERATOR [place] Specific 1.020 1.000 12/23/2018 [facility] [place], ->=1.030 10:24 AM LANDFILL GAS COLLECTION OPERATOR [place] Urine Blood, Urine NEGATIVE NEGATIVE 12/23/2018 [facility] 10:24 AM LANDFILL GAS COLLECTION OPERATOR [place] pH, Urine 5.5 5.0 - 7.0 12/23/2018 [facility] 10:24 AM LANDFILL GAS COLLECTION OPERATOR [place] Protein, NEGATIVE NEGATIVE-TRA 12/23/2018 [facility] Urine CE mg/dL 10:24 AM LANDFILL GAS COLLECTION OPERATOR [place] Urobilinogen, 0.2 0.2 - 1.0 12/23/2018 [facility] Urine E.U./dL 10:24 AM LANDFILL GAS COLLECTION OPERATOR [place] Nitrite, NEGATIVE NEGATIVE 12/23/2018 [facility] Urine 10:24 AM LANDFILL GAS COLLECTION OPERATOR [place] Leukocytes, TRACE (A) NEGATIVE 12/23/2018 [facility] Urine 10:24 AM LANDFILL GAS COLLECTION OPERATOR [place] Specimen Anatomical Collection Method Collection Time Receive d Time (Source) Location / / Volume Laterality Urine (Urine, 12/23/2018 9:58 12/23/2018 Clean Catch) AM LANDFILL GAS COLLECTION OPERATOR 9:58 AM LANDFILL GAS COLLECTION OPERATOR D. [place] Herrera MD LAB URINE ORDERABLES Performing Organization Address City/State/ZIP Code Phon e Number [facility] [place] [address] [place] [address] documented in this encounter Visit Diagnoses Diagnosis Frequency of micturition - Primary Urinary frequency Raynaud's disease without gangrene Frequency of micturition Urinary frequency documented in this encounter Care Teams Trench Digging Machine Operator Relationship Specialty Start Date End Date Adriane Patel, ADOBE CQ DEVELOPER, AUTOMATION QA TESTER PCP - General 09/22/17 07/06/19 [address] [place] [address] documented as of this encounter
--- OUTSIDE RECORDS SUMMARY | 2021-09-05 00:13 | XMS_ITS | Encounter Summary ---
:1945 Author Organization [facility] Address [address] [place] [address] Care Team Providers Name Role Phone Ronak Patel COIL SHAPER, CONVEX GRINDER Primary Care Provider Reason for Visit Consultation (Routine) - Closed Specialty Diagnoses / Procedures Referred By Contact Refer red To Contact Diagnoses Medicare annual wellness visit, initial Corrine Vazquez MD Care Coordination [address] [place], [place] [phone] Referral ID Status Reason Start Date Expiration Date Visits V isits Requested Authorized [id number] Closed Specialty 12/23/2018 99 99 Services Required Encounter Details Date Type Department Care Team Description 04/26/2019 Patient Outreach SE Care Abbie Ramesh and coordination of care (Primary Dx); Aldo Murray RN Type 2 diabetes mellitus with other spec ified complication, with long-term current use of insulin (HCC); [address] [facility] [address] Conjunctivitis of both eyes, unspecified conjunctivitis type; [place], [place] [id number] [place] [address] Stage 3 chronic kidney disease (HCC) [phone] [place] [address] Social History Tobacco Use Types [...] 12/23/2018 organizations such as anabaptist groups, unions, Tr[employer] or athletic groups, or school groups? How [...] encounter Progress Notes Abbie Ramesh RN - 04/26/2019 2:00 PM CDT Continued Care Plan - Care Coordination Discussion Date: 04/26/2019 2:38 PM Completed CCM monthly follow up with Marcial Medication reviewed. She continues to work towards previously set goals. Today's discussion: ??? Diabetes: Morning blood sugars ranging from 104-150s, with occasional readings in the 160-180s. Has been taking Basaglar 14 units daily, up from 13 units because she has been cheating lately withher diet. Overall, limiting carb/sugar intake and feels she is improving her diet. She plans to get A1C drawn prior to her next ENDO appt next month. She is hoping to see it come down. ??? Continues with eye washes to control blepharitis. Vision will be blurry if she does not do them. Follow-up plan: ??? A1C due in May Items for Provider to address: ??? None Goals 03/01/19 10/29/18 07/07/18 06/24/18 05/24/18 General ??? Health Maintenance (pt-stated) Health Maintenance Topic Date Due ??? Pneumococcal PPSV23/PCV13 65+ Years / Low and Medium Risk (2 of 2 - PPSV23) 06/22/2015 ??? Diabetic Foot Exam 07/16/2019 ??? Hemoglobin A1C 05/31/2019 ??? Lipid Panel 06/16/2019 ??? Urine Protein Screening 08/28/2019 ??? Mammogram 11/26/2019 ??? Glaucoma Screening 67+ Yr 12/18/2019 ??? Ophthalmology Exam 12/18/2019 ??? Fall Risk Performed 12/24/2019 ??? [facility] Annual Wellness 12/24/2019 ??? Colorectal Cancer Screening: Colonoscopy 05/21/2021 ??? HPV Vaccines Aged Out Lifestyle ??? Keep your medical appointments Future Appointments Date Time Provider Department Center 06/13/2019 11:00 AM JOSE DE JESUS [facility] Result Component ? ? Hemoglobin A1c < 7.0 8.8 8.0 8.7 8.5 8.5 Patient will work towards decreasing A1c to 7 within 6 months (June 2019) a.) Patient will check A1C every three months (Should be less than 7.0) b.) Patient will check blood glucose 2 times daily and report to after school caregiver weekly c.) Patient will take medication [...] Peter Monzon (02/05/2021 Abbie Murray, 11:19 AM INSPECTOR COATED FABRICS) RN Note: Formatting of this note is differe nt from the original. Routine Health Management Care Team Patient Care Team: Corrine Vazquez MD as PCP - General (F amily Medicine) Yossi Potts, RN as Registered Nurse (Diabetes Education) Abbie Ramesh, RN as Store Stocker Future Scheduled Appointments No future appointments. Health Maintenance Health Maintenance Topic Date Due Urine Protein Screening 05/31/2020 Lipid Panel 09/05/2020 Glaucoma Screening 67+ Yr 12/25/2020 Ophthalmology Exam 12/25/2020 [facility] Annual Wellness 01/12/2021 Hemoglobin A1C 01/24/2021 Diabetic [...] with long-term current use of insulin (HCC) Conjunctivitis of both eyes, unspecified conjunctivitis type Stage 3 chronic kidney disease (HCC) documented in this encounter Care Teams Edge Polisher Relationship Specialty Start Date End Date Adriane Patel APRN, CONVEX GRINDER PCP - General 09/22/17 07/06/19 100 [place] [address] documented as of this encounter
--- OUTSIDE RECORDS SUMMARY | 2021-09-05 00:13 | XMS_ITS | Encounter Summary ---
:1945 Author Organization [facility] Address [address] [place] [address] Care Team Providers Name Role Phone Ronak Patel APRN, DIRECTOR WORKERS COMPENSATION Primary Care Provider Encounter Details Date Type Department Care Team Description 04/13/2019 Patient Outreach SE Care Coordination Abbie Ramesh, [address] [facility] [place] [address] [place] [address] [place] [address] Social History Tobacco Use Types [...] 12/23/2018 organizations such as yarsanism groups, unions, fraternal or athletic groups, or [...] encounter Progress Notes Abbie Ramesh RN - 04/13/2019 11:15 AM CST Care Plan - Care Coordination Contact Date: 04/13/2019 11:16 AM Called for monthly follow up and progress; Unable to leave message to call back.. This is first attempt to call this month. Will attempt to call back later today or tomorrow. Would like to discuss: 1. Diabetes-blood sugars 2. Medications ETING COMMUNICATIONS COORDINATOR Abbie Ramesh RN - 04/13/2019 11:15 AM CST Care Plan - Care Coordination Contact Date: 04/15/2019 10:30 AM Called for monthly follow up and progress; Left message to call back.. This is second attempt to call this month. When patient returns phone call, would like to discuss: 1. Diabetes-blood sugars 2. Medications ETING COMMUNICATIONS COORDINATOR documented in this encounter Plan of Treatment Not on filedocumented as of this encounter Goals Goal Patient Goal Associated Recent Patient-Stated? Author Type Problems Progress Routine Health General No change No Peter Ramesh (02/05/2021 Abbie Murray, 11:19 AM MARKETING COMMUNICATIONS COORDINATOR) RN Note: Formatting of this note is differe nt from the original. Routine Health Management Care Team Patient Care Team: Corrine Vazquez MD as PCP - [facility] Yossi Potts, RN as Registered Nurse (Diabetes Education) Abbie Ramesh RN as District Manager In Training Future Scheduled Appointments No future appointments. Health Maintenance Health Maintenance Topic Date Due Urine Protein Screening 05/31/2020 Lipid Panel 09/05/2020 Glaucoma Screening 67+ Yr 12/25/2020 Ophthalmology Exam 12/25/2020 [facility] Annual Wellness 01/12/2021 Hemoglobin A1C 01/24/2021 Diabetic [...] on filedocumented in this encounter Care Teams Brothel Keeper Relationship Specialty Start Date End Date Adriane Patel, HVAC INSTRUCTOR, DIRECTOR WORKERS COMPENSATION PCP - General 09/22/17 07/06/19 100 [facility] [place] [address] documented as of this encounter
--- OUTSIDE RECORDS SUMMARY | 2021-09-05 00:13 | XMS_ITS | Encounter Summary ---
:1945 Author Organization [facility] Address [address] [place] [address] Care Team Providers Name Role Phone Ronak Patel MECHANISM ASSEMBLER, TRAVELING PASSENGER AGENT Primary Care Provider Reason for Visit Reason Comments Med Refill Encounter Details Date Type Department Care Team Description 04/12/2019 Refill [place] Adriane Patel, Mixed hyperlipidemia [address] [place], LEONARD (Primary Dx) [place], [place] [address] [address] [phone] [place], [place] [address] Social History Tobacco Use [...] More than 4 times per year 12/23/2018 jainism services? Do you belong to any clubs [...] Telephone Encounter - Lana Knight LPN - 04/13/2019 8:06 AM CST 12/23/[address] Vazquez It states Crestor was a Historical add: Requesting per pharmacy- [facility] and verified with Gerson the pharmacist. 5mg taking half tablet once daily (2.5mg per day) MATIC SCREWMAKER Telephone Encounter - Ifeoma Parikh LPN - 04/13/2019 7:03 AM CST Last visit in Provider Department reviewing medication: 04/22/2018 Upcoming appointment with Provider: Visit date not found Last Rx: 04/22/2018 # 15, 5 refills Discontinued 10/29/2018 therapy completed Requested Prescriptions Pending Prescriptions Disp Refills ??? rosuvastatin (CRESTOR) 5 MG tablet [Pharmacy Med Name: ROSUVASTATIN CALCIUM 5MG TABS] 15 tablet 5 Sig: TAKE ONE-HALF TABLET BY MOUTH ONCE DAILY. Labs: Component Latest Ref Rng & Units 10/29/2018 Cholesterol 0 - 199 mg/dL 243 (A) Triglycerides 0 - 149 mg/dL 340 (A) HDL 40 - 60 mg/dL 36 (A) LDL Calculated 0 - 99 mg/dL 139 (A) Vitals: BP Readings from Last 2 Encounters: 03/07/19 128/70 12/23/18 152/82 Please review and advise pharmacy on refill request. Thank you MATIC SCREWMAKER documented in this encounter Plan of Treatment Not on filedocumented as of this encounter Goals Goal Patient Goal Associated Recent Patient-Stated? Author Type Problems Progress Routine Health General No change No Peter Ramesh (02/05/2021 Abbie Murray, 11:19 AM AUTOMATIC SCREWMAKER) RN Note: Formatting of this note is differe nt from the original. Routine Health Management Care Team Patient Care Team: Corrine Vazquez MD as PCP - General (F amily Medicine) Yossi Potts, ERA as Registered Nurse (Diabetes Education) Abbie Ramesh RN as Head Mixer Future Scheduled Appointments No future appointments. Health [...] Visit Diagnoses Diagnosis Mixed hyperlipidemia - Primary documented in this encounter Care Teams Bakery Manager Relationship Specialty Start Date End Date Adriane Patel APRN, TRAVELING PASSENGER AGENT PCP - General 09/22/17 07/06/19 100 [place] [address] documented as of this encounter
--- OUTSIDE RECORDS SUMMARY | 2021-09-05 00:14 | XMS_ITS | Encounter Summary ---
:1945 Author Organization [facility] Address [address] [place] [address] Care Team Providers Name Role Phone Ronak Patel LIFT TRUCK MECHANIC, PRIMARY OPERATOR Primary Care Provider Reason for Visit Reason Onset Date Comments Requesting results and referral 07/05/2018 Encounter Details Date Type Department Care Team Description 07/05/2018 Telephone [place] Adriane Patel, Requesting results and [address] LIFT TRUCK MECHANIC, PRIMARY OPERATOR referral [place], [place] [address] [address] [facility] [facility] [address] [phone] [place], [place] [address] Social History Tobacco Use [...] More than 4 times per year 12/23/2018 tenriism services? Do you belong to any clubs [...] Notes Telephone Encounter - Adriane Patel APRN, PRIMARY OPERATOR - 07/05/2018 2:14 PM CDT This referral has been completed. Telephone Encounter - Lana Knight LPN - 07/05/2018 1:44 PM CDT She would like a second opinion on the HbgA1c. She feels that she has been high for sometime. She wants to talk with the special. She would like to see [facility] endocrinology. Telephone Encounter - Adriane Patel APRN, CNP - 07/05/2018 9:13 AM CDT Please read through the letter, and please find out why she would like to go to endocrinology? Thanks, Suresh Telephone Encounter - Ana Cristina Prado MA - 07/05/2018 9:00 AM CDT Please advise Telephone Encounter - Luciana Albarado - 07/05/2018 8:41 AM CDT Pt called stating she has been trying to get some results form Suresh Jorge. Pt is also requesting areferral to alia Alfaro in endocrinology at [facility]. Pt gave a fax number for the referral of [phone]. Call Pt to advise. documented in this encounter Plan of Treatment Not on filedocumented as of this encounter Visit Diagnoses Not on filedocumented in this encounter Care Teams Inspectors And Regulatory Officers Relationship Specialty Start Date End Date Adriane Patel APRN, LEONARD PCP - General 09/22/17 07/06/[address] [place] [address] [place] [address] documented as of this encounter
--- OUTSIDE RECORDS SUMMARY | 2021-09-05 00:14 | XMS_ITS | Encounter Summary ---
:1945 Author Organization [facility] Address [address] [place] [address] Care Team Providers Name Role Phone Ronak Patel CEMENT MASON, BUTTON FACING MACHINE OPERATOR Primary Care Provider Reason for Visit Reason Comments Diabetes Consultation (Routine) - Closed Specialty Diagnoses / Procedures Referred By Contact Refer red To Contact Endocrinology Diagnoses Type 2 diabetes mellitus with hyperglycemia, without long-term current use of insulin (HCC) Adriane Patel, CEMENT MASON, BUTTON FACING MACHINE OPERATOR [address] [place] [address] Referral ID Status Reason Start Date Expiration Date Visits V isits Requested Authorized [id number] Closed Specialty 07/05/2018 07/06/2019 1 1 Services Required Encounter Details Date Type Department Care Team Description 07/07/2018 Consult SE Endocrinology Bacilio Stewart, Type 2 diabetes mellitus [address] [place] [address] complication, without [phone] [place] [address] insulin (HCC) (Primary [phone] Dx) (Work) Social History Tobacco Use Types Packs/Day [...] More than 4 times per year 12/23/2018 mormon services? Do you belong to any clubs [...] Sign Reading Time Taken Comments Blood Pressure 140/70 07/07/2018 3:05 PM CDT Pulse 89 07/07/2018 3:05 PM CDT Temperature 36.4 ??C (97.5 ??F) 07/07/2018 3:05 PM CDT Respiratory Rate 12 07/07/2018 3:05 PM CDT Oxygen Saturation 98% 07/07/2018 3:05 PM CDT Inhaled Oxygen Concentration - - Weight 83.3 kg (183 lb 10.3 oz) 07/07/2018 3:05 PM CDT Height 161 cm (5' 3.39) 07/07/2018 3:05 PM CDT Body Mass Index 32.14 07/07/2018 3:05 PM CDT documented in this encounter Patient Instructions Patient InstructionsJOSE DE JESUS Austin - 07/07/2018 3:30 PM CDT - Continue current dose of glipizide and januvia for now. - Labs today, Based on lab results we will decide about starting metformin. - Check sugars twice a day, fasting and alternating before meals and bedtime. - Watch your diet for excess carbs and avoid snacking. - Physical activity as tolerated. - Follow up in 6 weeks. documented in this encounter Progress Notes JOSE DE JESUS Austin - 07/07/2018 3:30 PM CDT Consultation Patient: Marcial Adams 73 y.o. female 1945 Date of Service: 07/07/18 Reason for consultation: Marcial Adams is a 73 y.o. female referred to endocrine clinic regarding consultation of diabetes. History of presenting illness: Marcial Adams is accompanied by her today. She was diagnosedwith diabetes in 2007. Most recent a1c was 8.7% in 06/2018. Current diabetes regimen includes Glipizide 10 mg BID and Januvia 50 mg daily. Januvia was started about 3 months ago. She was on metformin since the diagnosis of her diabetes. Last year she was diagnosed with rheumatoid arthritis. About a year ago, some worsening in renal function was noticed and metformin discontinued. Last creatinine was stable in 04/2018, 1.1 with eGFR 49. Glucometer showed average 180 with SD 40.1, range 135-266. Morning sugars are mostly in the reasonable range but evening sugars are usually high, >200. She usually checks 1-2 times a day, in the morning and before bedtime. No recent episodes of hypoglycemia. She eats 3 meals/day and an afternoon snack. She seems to consume a lot of high carb/starch foods. No smoking. Last eye exam showed no retinopathy in [place], per her account. Denies any numbness or tingling sensation. No skin changes or diabetic foot ulcers. Exercise includes some walking off and on but in general no regular exercise. PM/SH: Past Medical History: Diagnosis Date ??? Anemia ??? Anxiety ??? Arthritis ??? Cataract ??? Diabetes mellitus ??? Disease of thyroid gland ??? Urinary tract infection ??? Varicella ??? Visual impairment glasses Past Surgical History: Procedure Laterality Date ??? APPENDECTOMY ??? CARDIAC SURGERY STENT ??? SECTION, CLASSIC TWO ??? HERNIA REPAIR TWO ??? LYMPH NODE BIOPSY ??? ROTATOR CUFF REPAIR ??? WISDOM TOOTH EXTRACTION Medications: Medications in EHR reviewed. Allergies: Allergies Allergen Reactions ??? Azathioprine ??? Azithromycin ??? Olmesartan Family History: Family History Problem Relation Age of Onset ??? Coronary artery disease Father ??? Lung cancer Father ??? Hypertension Brother ??? Diabetes Brother Social History: Social History Socioeconomic History ??? Marital status: Spouse name: Not on file ??? Number of children: Not on file ??? Years of education: Not on file ??? Highest education level: Not on file Occupational History ??? Not on file Social Needs ??? Financial resource strain: Not on file ??? Food insecurity: Worry: Not on file Inability: Not on file ??? Transportation needs: Medical: Not on file Non-medical: Not on file Tobacco Use ??? Smoking status: Never Smoker ??? Smokeless tobacco: Never Used Substance and Sexual Activity ??? Alcohol use: No Frequency: Never ??? Drug use: No ??? Sexual activity: Never Partners: Male Lifestyle ??? Physical activity: Days per week: Not on file Minutes per session: Not on file ??? Stress: Not on file Relationships ??? Social connections: Talks on phone: Not on file Gets together: Not on file Attends mormon service: Not on file Active member of club or organization: Not on file Attends meetings of clubs or organizations: Not on file Relationship status: Not on file ??? Intimate partner violence: Fear of current or ex partner: Not on file Emotionally abused: Not on file Physically abused: Not on file Forced sexual activity: Not on file Other Topics Concern ??? Not on file Social History Narrative ??? Not on file Review of System: 10 point ROS was done and was negative except mentioned above. Physical Examination: Visit Vitals BP 140/70 Pulse 89 Temp 36.4 ??C (97.5 ??F) (Temporal) Resp 12 Ht 1.61 m (5' 3.39) Wt 83.3 kg (183 lb 10.3 oz) SpO2 98% BMI 32.14 kg/m?? Smoking Status Never Smoker BSA 1.93 m?? Constitutional: Appears well, NAD Eyes: EOMI, PERRLA, no lid lag, no retraction, no proptosis. ENT: No sinus tenderness, throat is clear Neck: Supple, No LAD Thyroid: Not enlarged Respiratory: Normal regular breathing, no wheezing, no crepts, no rhonchi Cardiovascular: S1+S2 no murmurs, rubs or gallops Musculoskeletal: Normal strength in all 4 extremities Neurological: AAOx3, normal reflexes GI: Soft, non tender, BS normal, no striae Ext: No edema, no tremors Feet: 2+ pedal pulses, Normal monofilament exam, No ulcers Skin: No dry skin, normal hair distribution, no hyperpigmentation Psych: Normal mood, pleasant affect. Laboratory Work up: Reviewed Imaging: Reviewed Assessment and Plan: 1- Diabetes Mellitus type 2: Suboptimal control. It appears that diabetes control deteriorated after discontinuation of metforminlast year. I discussed management of diabetes with her in detail and various strategies to improve glycemic control. - Continue with current dose of Glipizide and Januvia for now. - It seems like Metformin worked well for her in the past and she had been on that since the time ofdiagnosis. We will check her kidney function today and if stable, restart metformin at a low dose, with close monitoring of her renal function. - If metformin could not be started, other options would be either substituting Januvia with an GLP-1 agonist or addition of basal insulin. - Patient was advised to check sugars twice a day, fasting and alternating before meals and bedtime. - Watch your diet for excess carbs and avoid snacking. - Physical activity/exercise as tolerated. 2- Diabetes related complications: - Lipid: LDL 115 in 02/2018. Has been prescribed rosuvastatin but is not taking currently. - No microalbuminuria in 02/2017. She is on an ACEI. - No smoking - Last eye exam showed no retinopathy per her account about a year ago, she has an eye exam coming up in a couple of weeks in [place]. - No skin changes or diabetic foot ulcers. - HTN. Reasonable control on therapy. - No neuropathy, normal monofilament exam. Follow up in about 6 weeks. Reviewed with the patient and her husbandin detail, they verbalized understanding and agreed with the plan. Bacilio Stewart MD Staff Deputy Sheriff K9 Handler Adriane Patel APRN, LEONARD - 07/07/2018 3:30 PM CDT Reviewed. documented in this encounter Plan of Treatment Not on filedocumented as of this encounter Results (ABNORMAL) Basic metabolic panel (07/07/2018 4:35 PM CDT) Analysis Performed At [facility] Time Signature Sodium 141 135 - 145 07/07/2018 [facility] mEq/L 5:59 PM T [facility] Potassium 4.2 3.5 - 5.1 07/07/2018 [facility] mEq/L 5:59 PM T [facility] Chloride 108 (H) 98 - 107 07/07/2018 [facility] mEq/L 5:59 PM [facility] CO2 26 22 - 29 07/07/2018 [facility] mmol/L 5:59 PM [facility] Creatinine 1.4 (H) 0.4 - 1.2 07/07/2018 [facility] mg/dL 5:59 PM [facility] BUN 22 5 - 25 07/07/2018 [facility] mg/dL 5:59 PM [facility] Glucose 181 (H) 70 - 100 07/07/2018 [facility] mg/dL 5:59 PM [facility] Calcium, 9.7 8.4 - 10.2 07/07/2018 [facility] Total,S mg/dL 5:59 PM [facility] Fasting? No 07/07/2018 [facility] 4:35 PM [facility] Specimen Anatomical Collection Method Collection Time Receive d Time (Source) Location / / Volume Laterality Blood 07/07/2018 4:35 07/07/2018 PM CDT 5:26 PM CDT Bacilio DELA CRUZ LAB BLOOD ORDERABLES Performing Organization Address City/State/ZIP Code Phon e Number [facility] [address] [place] [address] documented in this encounter Visit Diagnoses Diagnosis Type 2 diabetes mellitus with other spec ified complication, without long-term current use of insulin (HCC) - Primary documented in this encounter Care Teams Boiler Reliner Relationship Specialty Start Date End Date Adriane Patel APRN, BUTTON FACING MACHINE OPERATOR PCP - General 09/22/17 07/06/19 [address] [facility] [place] [address] documented as of this encounter
--- OUTSIDE RECORDS SUMMARY | 2021-09-05 00:14 | XMS_ITS | Encounter Summary ---
:1945 Author Organization [facility] Address [address] [place] [address] Care Team Providers Name Role Phone Ronak Patel RESTAURANT HOST, FOREIGN EXCHANGE TRADER Primary Care Provider Encounter Details Date Type Department Care Team Description 07/07/2018 Lab SE Lab Type 2 diabetes mellitus wit h [address] [facility] other specified complication , [place] [address] without long-term current us e [phone] of insulin (HCC ) Social History Tobacco [...] Procedure Name Priority Date/Time Associated Comments Diagnosis GLOMERULAR Routine 07/07/2018 4:35 PM Type 2 diabetes Resul ts for this FILTRATION RATE CDT mellitus with other proce dure are in specified the results complication, section. without long-term current use of insulin (HCC) HEMOGLOBIN A1C Routine 07/07/2018 4:35 PM Type 2 diabetes Res ults for this CDT mellitus with other procedur e are in specified the results complication, section. without long-term current use of insulin (HCC) BASIC METABOLIC Routine 07/07/2018 4:35 PM Type 2 diabetes Re sults for this PANEL CDT mellitus with other procedur e are in specified the results complication, section. without long-term current use of insulin (HCC) documented in this encounter Results (ABNORMAL) Glomerular filtration rate (GFR) (07/07/2018 4:35 PM CDT) P athologist Signature GFR 37 (A) 07/07/2018 [facility] 5:59 PM CDT [facility] 45 (A) 07/07/2018 [facility] [place] GFR 5:59 PM T [facility] Comment: GFR calculated from serum creatinine v alue Chronic Kidney Disease less than 60 mL/m in/1.73 m2 Kidney Failure less than 15 mL/min/1.73 m2 Note: effective 07/01/06 IDMS-Traceable MDRD Study Equation used. Specimen Anatomical Collection Method Collection Time Receive d Time (Source) Location / / Volume Laterality 07/07/2018 4:35 07/07/2018 PM CDT 4:35 PM CDT Bacilio DELA CRUZ LAB BLOOD ORDERABLES Performing Organization Address City/State/ZIP Code Phon e Number [facility] [address] [place] [address] (ABNORMAL) Hemoglobin A1c (07/07/2018 4:35 PM CDT) Analysis Performed At Patho logist Time Signature Hemoglobin A1C 8.7 (H) 4.0 - 5.6 07/07/2018 [facility] % A1C 5:44 PM CDT [facility] Comment: Reference [...] Location / / Volume Laterality Blood (Blood, 07/07/2018 4:35 07/07/2018 Venous) PM CDT 5:26 PM CDT Adriane Patel RESTAURANT HOST, FOREIGN EXCHANGE TRADER LAB BLOOD ORDERABLES Performing Organization Address City/[facility] Phon e Number [facility] [address] [place] [address] (ABNORMAL) Basic metabolic panel (07/07/2018 4:35 PM CDT) Analysis Performed At Patho logist Time Signature Sodium 141 135 - 145 07/07/2018 [facility] mEq/L 5:59 PM [facility] Potassium 4.2 3.5 - 5.1 07/07/2018 [facility] mEq/L 5:59 PM [facility] Chloride 108 (H) 98 - 107 07/07/2018 [facility] mEq/L 5:59 PM [facility] CO2 26 22 - 29 07/07/2018 [facility] mmol/L 5:59 PM [facility] Creatinine 1.4 (H) 0.4 - 1.2 07/07/2018 [facility] mg/dL 5:59 PM [facility] BUN 22 5 - 25 07/07/2018 [facility] mg/dL 5:59 PM [facility] Glucose 181 (H) 70 - 100 07/07/2018 [facility] mg/dL 5:59 PM [facility] Calcium, 9.7 8.4 - 10.2 07/07/2018 [facility] Total,S mg/dL 5:59 PM [facility] Fasting? No 07/07/2018 [facility] 4:35 PM [facility] Specimen Anatomical Collection Method Collection Time Receive d Time (Source) Location / / Volume Laterality Blood 07/07/2018 4:35 07/07/2018 PM CDT 5:26 PM CDT Bacilio DELA CRUZ LAB BLOOD ORDERABLES Performing Organization Address City/[facility] Code Phon e Number [facility] [address] [place] [address] documented in this encounter Visit Diagnoses Diagnosis Type 2 diabetes mellitus with other spec ified complication, without long-term current use of insulin (HCC) documented in this encounter Care Teams Train Operations Manager Relationship Specialty Start Date End Date Adriane Patel, RESTAURANT HOST, FOREIGN EXCHANGE TRADER PCP - General 09/22/17 07/06/19 100 [facility] [place] [address] documented as of this encounter
--- OUTSIDE RECORDS SUMMARY | 2021-09-05 00:14 | XMS_ITS | Encounter Summary ---
:1945 Author Organization [facility] Address [address] [place] [address] Care Team Providers Name Role Phone Ronak Patel ROAD COMMISSIONER, PSYCHOLOGICAL STRESS EVALUATOR Primary Care Provider Encounter Details Date Type Department Care Team Description 07/16/2018 Orders Only SE Endocrinology Bacilio Stewart, Type [address] [place] [address] specified complication, [place], [place] long-t erm [id number] current use of insulin [phone] (HCC) (Primary Dx) (Work) Social History Tobacco Use Types [...] Primary documented in this encounter Care Teams Digester Capper Relationship Specialty Start Date End Date Adriane Patel APRN, PSYCHOLOGICAL STRESS EVALUATOR PCP - General 09/22/17 07/06/19 100 [facility] [place] [address] documented as of this encounter
--- OUTSIDE RECORDS SUMMARY | 2021-09-05 00:14 | XMS_ITS | Encounter Summary ---
:1945 Author Organization [facility] Address [address] [place] [address] Care Team Providers Name Role Phone Ronak Patel SLEEP MANAGER, PILE DRIVING TECHNICIAN Primary Care Provider Reason for Visit Reason Comments Diabetes Type 2 Diabete, using insuli n, follow up Encounter Details Date Type Department Care Team Description 08/31/2018 Office Visit SE Diabetic Education Yossi Potts, T ype 2 diabetes 2nd Floor RN mellitus with other [address] [place] [address] complication, [place], [place] unspecified ether [id number] group home insulin use [phone] ([facility]) (Work) Social History Tobacco Use Types Packs/Day [...] or relatives? How often do you attend caodaism or More than 4 times per year 12/23/2018 roman catholic services? Do you belong to any clubs or No 12/23/2018 organizations such as caodaism groups, unions, fraternal or athletic groups, or [...] documented as of this encounter Progress Notes Yossi Potts RN - 08/31/2018 9:00 AM CDT [facility] Patient Name: Marcial Adams Patient Identifier: [id number] Service Location: [facility] SE DIABETIC EDUCATION 2ND FLOOR [address] [facility] [address] Service Date: 08/31/2018 PATIENT EDUCATION- DIABETES VISIT LOCATION: [facility] REFERRING CLINICIAN: JOSE DE JESUS Austin REFERRAL DATE: 07/19/2018 REASON FOR REFERRAL: Post program education REASON FOR REFERRAL: Type 2 Diabetes Mellitus, uncontrolled PREFERRED LEARNING STYLE: Observing Doing CLINICAL ASSESSMENT: Patient Age: 73 y.o. Height: BP Readings from Last 1 Encounters: 08/27/18 120/80 Weight: Wt Readings from Last 1 Encounters: 08/27/18 81.1 kg (178 lb 12.7 oz) BMI: Estimated body mass index is 31.29 kg/m?? as calculated from the following: Height as of 08/27/18: 1.61 m (5' 3.39). Weight as of 08/27/18: 81.1 kg (178 lb 12.7 oz). Basal Calorie Needs: Race/Ethnicity: White/ Preferred Language: Divehi PERTINENT LABS: Hemoglobin A1C Lab Results Component Value Date HGBA1C 8.7 (H) 07/07/2018 LIPIDS Lab Results Component Value Date CHOL 221 (A) 02/24/2017 CHOL 152 01/15/2016 Lab Results Component Value Date HDL 44 02/24/2017 HDL 43 01/15/2016 Lab Results Component Value Date LDLCALC 115 (A) 02/24/2017 LDLCALC 65 01/15/2016 Lab Results Component Value Date TRIG 308 (A) 02/24/2017 TRIG 222 (A) 01/15/2016 No results found for: CHOLHDL Microalbumin/Creatinine Ratio Lab Results Component Value Date MICROALBCREA see below 02/24/2017 TSH Lab Results Component Value Date TSH 2.05 04/22/2018 PERTINENT MEDICAL HISTORY: 1- Diabetes Mellitus type 2 MEDICATIONS: Last updated by: JOSE DE JESUS Austin On:08/27/2018 PATIENT CONCERNS: GLP1 Agonist medications Variation in home blood glucose results Accu-Chek Multi-Clix lancet device is not working well DIABETES CARE ASSESSMENT: Blood Glucose Testing: Brand/Meter: Accu-Chek Guide Test Strips: Accu-Chek Guide Lancets: Accu-Chek Fast - Clix Blood Glucose target range: 100-140 mg/dL Blood Glucose Testing: Currently testing 4 times a day Insulin Pump: No Glucose Sensor: No Year of diabetes diagnosis: 2007 [place] [facility] [place]Ed: 2014, 2016, 2018 NURSING DIAGNOSIS: Knowledge deficit- Related to Knowledge deficit relating to type 2 diabetes, using insulin INTERVENTION AND EVALUATION: Patient was seen for 60 minutes of which 75% was spent on education given on the following areas with post instruction knowledge assessed: BEING ACTIVE Possible need for food with planned activity, based on pre-activity blood glucose-needs review/assistance MONITORING How and when to test blood sugars- Competent Why and how to keep blood glucose records- Competent Hypoglycemia: signs, symptoms and treatment- Needs review/assistance MEDICATION GLP-1 agonist class of diabetes medications: effects and side effects - Needs review / assistance LOWERING RISKS Sick day management- Needs review/assistance. Travel considerations- Needs review/assistance. Use of the Glucagon Emergency Kit - Needs review/assistance Patient here for diabetes education. Is accompanied by her , Alex. ?? Diabetes Medications: Basaglar (glargine): patient states she is still injecting 12 units , once a day, in the morning. Glipizide: 10 mg, twice a day Januvia: 50 mg once a day ?? Food/Meals: Meal times: Breakfast: 6:30-7:00AM Midday meal: 12 Noon. Evening meal: 5:30-6:00PM. ?? Physical Activity: Says she tries to do some walking for physical activity. ?? Home Blood Glucose Monitoring: Patient brings with her her blood glucose meter and written records which contain blood sugars and brief notation as to when she has had sweets or certain types of food (such as pizza). Since her visitwith Dr. Stewart last week: Fastin, 129, 137, 100 . Noon: 87, 121, 95 . Late afternoon: 296, 109, 114, 112 . 8:00-9:00PM: 173, 137, 158, 118 . We discussed patient's recent blood sugars. As her blood sugars over the last 4 days have been fairly normal (fasting) patient has continued with 12 units of Basaglar insulin. I stated she could continue with that based, on the fasting numbers. We discussed the above listed topics relating to diabetes and the use of insulin. Patient also given handouts relating to these topics. Patient complains that her lancet device is not working well. I did give her a new Accu-Chek Fast-Clix lancet device and briefly showed her how to use that. I stated I would get a prescription started for the lancets that go into this new device. Patient states that she will continue to consider the possibility of using the GLP-1 agonist type ofmedication. If she wants to do that she states that she will contact Dr. Stewart I stated if she starts on the new medication and Dr. Stewart wishes to have me help her get started, I would be happy to dothat. Otherwise, I suggested that patient and I talk again in about 2 to 3 weeks to discuss her blood sugars, to see if further insulin adjustment is needed. I stated to the patient if she thinks that some of the food choices that she is making tend to causeher blood sugars to rise, that it might be worth her while to set up a visit with a registered dietitian, here at [facility], to discuss her food choices and her experiences when eating various types of foods. Patient states that she will consider that. Follow-up: Patient has the following scheduled in clinic visits 12/01/2018: With Dr. Stewart. I would plan to continue to be in contact with the patient every 2 to 3 weeks to monitor her blood sugars and see if she is making appropriate choices using the pattern management tool that I had discussed with her. ADDITIONAL EDUCATION IS: needed TOTAL DSMT MINUTES: 150 TOTAL MNT MINUTES: 0 DIABETES SELF-MANAGEMENT SUPPORT PLAN: For ongoing support, I choose to read the printed materials relating to diabetes and the use of insulin, that I was given today. I would also get social support from my , Alex. GOAL SETTING AND ACHIEVEMENT: 1. To help provide data as to how well my blood sugars are being controlled, I will check sugars twice a day, fasting and alternating before meals and bedtime. Patient reported achievement: All of thetime. ?? 2. To get help with insulin adjustment, I will talk with the RN/family living educator, once a week, until I am able to confidently do this myself or until my next visit with my formula room worker. Patient reported achievement: Most of the time ?? DIABETES MEDICATION GOAL: To bring blood sugars into normal range, I will take my medications as directed by my primary care provider. Patient achievement: All of the time Yossi Potts RN documented in this encounter Plan of Treatment Not on filedocumented as of this encounter Visit Diagnoses Diagnosis Type 2 diabetes mellitus with other spec ified complication, unspecified whether group home insulin use (HCC) documented in this encounter Care Teams Drawbridge Tender Relationship Specialty Start Date End Date Adriane Patel, SLEEP MANAGER, PILE DRIVING TECHNICIAN PCP - General 09/22/17 07/06/19 100 [facility] [place] [address] documented as of this encounter
--- OUTSIDE RECORDS SUMMARY | 2021-09-05 00:14 | XMS_ITS | Encounter Summary ---
:1945 Author Organization [facility] Address [address] [place] [address] Care Team Providers Name Role Phone Ronak Patel AIR PRESS OPERATOR, YARD LOADER OPERATOR Primary Care Provider Encounter Details Date Type Department Care Team Description 08/16/2018 Telephone [place] Adriane Patel, [address] AIR PRESS OPERATOR, [place], [place] [address] [address] [facility] [address] [phone] [place], [place] [address] Social History Tobacco Use [...] Telephone Encounter - Lana Knight LPN - 08/23/2018 10:11 AM CDT The patient is taking 2.5mg every other day per Dr. Currie Telephone Encounter - Lana Knight LPN - 08/20/2018 1:26 PM CDT Called the patient and left a message for a call back to a nurse. Telephone Encounter - Adriane Patel APRN, LEONARD - 08/20/2018 7:42 AM CDT Please reiterate Dr. Currie's note that she should take the Crestor 2.5 mg daily.Suresh Cm Telephone Encounter - Margareth Sanchez RN - 08/18/2018 10:20 AM CDT Note now available in Care Everywhere. Dr. Currie stated It was a pleasure to visit with Marcial and her , Alex, in return. Marcial's LDL cholesterol has now come under optimal control with a low dose of Crestor. Unfortunately, this has been temporally related to some mild leg cramping with walking. This is not effort limiting and she is able to walk through this. I think it is worth a trial of switching her Crestor to every other day dosing. She is already taking half tablets, so there is not further room to reduce the dose. For her triglyceridemia, she is a candidate for Vascepa. A prescription has been sent to the local pharmacy. If this proves cost prohibitive, then she could use high-dose fish oil. This was discussed. I have renewed her prescription for her nitroglycerin. I will plan to repeat a lipid panel in 6 months to assess her triglyceride levels. Telephone Encounter - Adriane Patel APRN, LEONARD - 08/18/2018 5:56 AM CDT Please obtain office note in regards to this as I am unable to put up in care everywhere thanks Suresh Telephone Encounter - Di Sloan - 08/16/2018 12:02 PM CDT Marcial is calling because she saw her drill sergeant, Dr. Currie at [place]. He told her that her cholesterol is fine and she did not need to take tht rosuvastin calcium 5 mg 1/2 tab. He suggested checking with Suresh to see if she could discontinue or go to 1/2 tab e.o.d. Please advise. documented in this encounter Plan of Treatment Not on filedocumented as of this encounter Visit Diagnoses Not on filedocumented in this encounter Care Teams De Icer Relationship Specialty Start Date End Date Adriane Patel APRN, YARD LOADER OPERATOR PCP - General 09/22/17 07/06/19 [address] [facility] [place] [address] documented as of this encounter
--- OUTSIDE RECORDS SUMMARY | 2021-09-05 00:14 | XMS_ITS | Encounter Summary ---
:1945 Author Organization [facility] Address [address] [place] [address] Care Team Providers Name Role Phone Ronak Patel TECHNICAL PRODUCT MANAGER, PEGGER Primary Care Provider Reason for Visit Reason Onset Date Comments UA 07/15/2018 UA RESULTS Encounter Details Date Type Department Care Team Description 07/15/2018 Telephone [place] Adriane Patel, UA (UA RESULTS) [address] TECHNICAL PRODUCT MANAGER, [place], [place] [address] [address] [facility] [address] [phone] [place], [place] [address] Social History Tobacco Use [...] encounter Miscellaneous Notes Telephone Encounter - Margareth Castanon RN - 07/17/2018 8:12 AM CDT Noted Telephone Encounter - Lana Knight LPN - 07/15/2018 4:11 PM CDT The provider will call the patient if the culture grows out positive over the weekend. documented in this encounter Plan of Treatment Not on filedocumented as of this encounter Visit Diagnoses Not on filedocumented in this encounter Care Teams Nail Technician Relationship Specialty Start Date End Date Adriane Patel APRN, PEGGER PCP - General 09/22/17 07/06/[address] [place] [address] [place] [address] documented as of this encounter
--- OUTSIDE RECORDS SUMMARY | 2021-09-05 00:14 | XMS_ITS | Encounter Summary ---
:1945 Author Organization [facility] Address [address] [place] [address] Care Team Providers Name Role Phone Ronak Patel ADMINISTRATION PROFESSIONAL, ACTUARIAL INTERNSHIP Primary Care Provider Encounter Details Date Type Department Care Team Description 10/28/2018 Telephone [place] Adriane Patel, [address] ADMINISTRATION PROFESSIONAL, [place], [place] [address] [address] [facility] [address] [phone] [place], [place] [address] Social History Tobacco Use [...] More than 4 times per year 12/23/2018 baptism services? Do you belong to any clubs [...] Telephone Encounter - Lana Knight LPN - 10/28/2018 9:46 AM CDT A couple of weeks SOB She cannot take a deep breath Congestion-no Cold-no URI-no Dizziness-no Weakness-no Per Adriane Patel ACTUARIAL INTERNSHIP: We can see her tomorrow but if anything worsen's or changes that she needs to go straight to the ER or call 911. Marcial understood this plan of care and is alright with seeing us tomorrow. documented in this encounter Plan of Treatment Not on filedocumented as of this encounter Visit Diagnoses Not on filedocumented in this encounter Care Teams Java J2Ee Technical Lead Relationship Specialty Start Date End Date Adriane Patel APRN, ACTUARIAL INTERNSHIP PCP - General 09/22/17 07/06/19 [address] [facility] [place] [address] documented as of this encounter
--- OUTSIDE RECORDS SUMMARY | 2021-09-05 00:14 | XMS_ITS | Encounter Summary ---
:1945 Author Organization [facility] Address [address] [place] [address] Care Team Providers Name Role Phone Ronak Patel DRY CLEANING CHECKER, DITCH INSPECTOR Primary Care Provider Reason for Visit Reason Onset Date Comments Results 06/30/2018 Encounter Details Date Type Department Care Team Description 06/30/2018 Telephone [place] Adriane Patel, Results [address] DRY CLEANING CHECKER, DITCH INSPECTOR [place], [place] [address] [address] [facility] [address] [phone] [place], [place] [address] Social History Tobacco Use [...] Notes Telephone Encounter - Adriane Patel APRN, DITCH INSPECTOR - 07/01/2018 4:40 PM CDT Letter sent. Telephone Encounter - Adriane Patel APRN, CNP - 07/01/2018 3:48 PM CDT Called the patient and left a message. We will try calling the patient tomorrow. Telephone Encounter - Adriane Patel APRN, CNP - 07/01/2018 1:51 PM CDT Called the patient and left a message. Telephone Encounter - Di Sloan - 07/01/2018 10:04 AM CDT The patient called again. Please try her again today. Telephone Encounter - Adriane Patel APRN, CNP - 06/30/2018 7:58 PM CDT Called the patient to discuss results findings and the phone number was busy x 20 minutes. Telephone Encounter - Ana Cristina Prado MA - 06/30/2018 10:56 AM CDT Please advise Telephone Encounter - Phoebe Donohue - 06/30/2018 10:35 AM CDT Patient had ultrasound yesterday at [place] and is requesting results. She would also like lab results.Please call her at [phone]. documented in this encounter Plan of Treatment Not on filedocumented as of this encounter Visit Diagnoses Not on filedocumented in this encounter Care Teams Dehydrogenation Supervisor Relationship Specialty Start Date End Date Adriane Patel APRN, DITCH INSPECTOR PCP - General 09/22/17 07/06/19 [address] [facility] [place] [address] documented as of this encounter
--- OUTSIDE RECORDS SUMMARY | 2021-09-05 00:14 | XMS_ITS | Encounter Summary ---
:1945 Author Organization [facility] Address [address] [place] [address] Care Team Providers Name Role Phone Ronak Patel EMBEDDED SYSTEMS ENGINEER, COTTAGE SUPERVISOR Primary Care Provider Encounter Details Date Type Department Care Team Description 07/09/2018 Orders Only [facility] Bacilio Stewart, Type [address] [place] [address] specified complication, [place], [place] without long-t erm [address] current use of insulin [phone] (HCC) (Primary Dx) (Work) Social History Tobacco [...] More than 4 times per year 12/23/2018 baptist services? Do you belong to any clubs [...] Primary documented in this encounter Care Teams Pole Shaver Helper Relationship Specialty Start Date End Date Adriane Patel APRN, COTTAGE SUPERVISOR PCP - General 09/22/17 07/06/19 100 [facility] [address] documented as of this encounter
--- OUTSIDE RECORDS SUMMARY | 2021-09-05 00:14 | XMS_ITS | Encounter Summary ---
:1945 Author Organization [facility] Address [address] [place] [address] Care Team Providers Name Role Phone Ronak Patel MEDICAL NURSE, BASS STRING WINDER Primary Care Provider Encounter Details Date Type Department Care Team Description 07/26/2018 Orders Only [facility] Endocrinology Bacilio Stewart, Type 2 diabetes mellitus wit h other specified complication, without long-term current use of insulin (HCC) (Primary Dx); [address] [facility] MBBS Type 2 diabetes mellitus without complic ation, without long-term current use of insulin (HCC) [place] [address] [address] [facility] [phone] [place], [place] [address] Social History Tobacco Use Types Packs/Day Years [...] (HCC) documented in this encounter Care Teams After School Program Director Relationship Specialty Start Date End Date Adriane Patel, MEDICAL NURSE, BASS STRING WINDER PCP - General 09/22/17 07/06/19 [address] [place] [address] documented as of this encounter
--- OUTSIDE RECORDS SUMMARY | 2021-09-05 00:14 | XMS_ITS | Encounter Summary ---
:[address] [facility] Address [address] [place] [address] Care Team Providers Name Role Phone Ronak Patel ROPE CLEANER, RADIOLOGY SUPERVISOR Primary Care Provider Encounter Details Date Type Department Care Team Description 07/19/2018 Telephone [place] Adriane Patel, [address] ROPE CLEANER, [place], [place] [address] [address] [facility] [address] [phone] [place], [place] [address] Social History Tobacco Use [...] Notes Telephone Encounter - Adriane Patel APRN, RADIOLOGY SUPERVISOR - 07/19/2018 2:38 PM CDT The patient reports she continues to have lower extremity edema, and will contact your physical sciences professor. documented in this encounter Plan of Treatment Not on filedocumented as of this encounter Visit Diagnoses Not on filedocumented in this encounter Care Teams Insights Manager Relationship Specialty Start Date End Date Adriane Patel APRN, LEONARD PCP - General 09/22/17 07/06/19 100 [place] [address] documented as of this encounter
--- OUTSIDE RECORDS SUMMARY | 2021-09-05 00:14 | XMS_ITS | Encounter Summary ---
:1945 Author Organization [facility] Address [address] [place] [address] Care Team Providers Name Role Phone Ronak Patel FIRER KILN, PROFESSOR OF FORESTRY Primary Care Provider Reason for Visit Reason Comments Nasal Congestion Cough Encounter Details Date Type Department Care Team Description 11/23/2018 Office Visit [place] Carl Stinson MD Acute non-recurrent sinusiti s, unspecified location (Primary Dx); [address] Adriane Patel, FIRER KILN, PROFESSOR OF FORESTRY [address] [place] [address] Conjunctivitis of both eyes, [place] [address] Social History Tobacco Use Types Packs/Day Years [...] or relatives? How often do you attend judaism or More than 4 times per year 12/23/2018 rastafarian services? Do you belong to any clubs or No 12/23/2018 organizations such as judaism groups, unions, fraternal or athletic groups, or [...] Sign Reading Time Taken Comments Blood Pressure 138/72 11/23/2018 2:52 PM CDT Pulse 83 11/23/2018 2:52 PM CDT Temperature 36.9 ??C (98.4 ??F) 11/23/2018 2:52 PM CDT Respiratory Rate 14 11/23/2018 2:52 PM CDT Oxygen Saturation 95% 11/23/2018 2:52 PM CDT Inhaled Oxygen Concentration - - Weight 83.8 kg (184 lb 11.9 oz) 11/23/2018 2:52 PM CDT Height 161 cm (5' 3.39) 11/23/2018 2:52 PM CDT Body Mass Index 32.33 11/23/2018 2:52 PM CDT documented in this encounter Patient Instructions Patient InstructionsChgarfield Patel APRN, CNP - 11/23/2018 3:00 PM CDT Amoxicillin 875 mg twice daily Gentamycin eye drops as directed documented in this encounter Progress Notes Adriane Patel APRN, CNP - 11/23/2018 3:00 PM CDT Estab Patient Visit Subjective Patient ID: Marcial Adams is a 73 y.o. female presenting for the following concerns. Chief Complaint Patient presents with ??? Nasal Congestion ??? Cough HPI: The patient is a pleasant 73 y.o. year old female presenting ambulatory to the clinical setting withupper respiratory infection symptoms she has had for the past 2 weeks, which initially started with a dry throat in the morning, causing her to clear her throat, and making it hard to talk. The patientdoes not necessarily have a sore throat. The patient reports she has since developed nasal congestion and nasal drainage, now yellow in color. The patient thought she was getting a sinus infection, as she did have maxillary sinus pressure a couple of days ago, which has since resolved. The patient reports her eyes have been mattered shut for the past 2 mornings, requiring a warm washcloth to remove the matter, before she can open her eyes. The patient denies any eye injury or decreased visual acuity. The patient does have a cough which is dry, nonproductive, and without little warning. No wheezing or increased work of breathing. No fever, no chills. No ear pain. The patient has had a hoarse voice throughout this illness. The patient reports her fasting morning blood sugars have been well controlled around 120s. The patient has a wedding at their house this next weekend, and the guest list is well over 300, which is stressful for her and her . The patient has been rubbing oils by her nose. The patient does have a history of RA and has infusion scheduled next week. The patient is a non-smoker. ROS: GENERAL: No fever, no chills. EYES: See HPI. The patient's eyes have been mattered shut for the past 2 mornings. EARS: No ear pain. NOSE: See HPI. The patient has had nasal congestion and nasal drainage, now yellow in color for the past 2 weeks. MOUTH/THROAT: The patient has had a dry throat, but denies throat discomfort. RESPIRATORY: See HPI. The patient has had a nonproductive cough, without associated wheezing or increased work of breathing. ENDOCRINOLOGY: The patient has type 2 diabetes, and her fasting morning blood sugars have been well controlled at 120. NEUROLOGICAL: No headache. The following portions of the patient's chart were reviewed in this encounter and updated as appropriate: Tobacco Allergies Meds Problems Med Hx Surg Hx Fam Hx Soc Hx Current Outpatient Medications: ??? ACCU-CHEK SIDDHARTH PLUS test strip, USE TO TEST BLOOD GLUCOSE 3 TIMES A DAY, Disp: 300 each, Rfl: 3 ??? ACCU-CHEK FASTCLIX LANCETS [facility], Check blood glucose 4 times a day, [...] glargine (BASAGLAR KWIKPEN) 100 UNIT/ML injection, Inject 12 Units under the skin 1 (one) time [...] each day,Disp: 90 tablet, Rfl: 3 ??? amoxicillin (AMOXIL) 875 MG tablet, Take 1 tablet (875 mg total) by mouth 2 (two) times a day for 10 days Take with food., Disp: 20 tablet, Rfl: 0 ??? gentamicin (GARAMYCIN) 0.3 % ophthalmic solution, Administer 1-2 drops into both eyes every 4 (four) hours for 7 days, Disp: 15 mL, Rfl: 0 Objective Visit Vitals BP 138/72 (BP Location: Right arm, Patient Position: Sitting) Pulse 83 Temp 36.9 ??C (98.4 ??F) (Temporal) Resp 14 Ht 1.61 m (5' 3.39) Wt 83.8 kg (184 lb 11.9 oz) SpO2 95% BMI 32.33 kg/m?? Smoking Status Never Smoker BSA 1.94 m?? GENERAL: The patient is alert, orientated, and in no apparent distress. HEENT: Head normocephalic. The patient sounds nasally congested. Eyes -Sclera of her eyes is quite injected, the conjunctive a is a dark pink without any evidence of exudate on exam. Pupils round and reactive to light. Ears - normal canals, normal pearly molina TMs bilaterally. Throat -slightly erythematous oropharynx. Neck - Supple. No cervical or posterior lymphadenopathy. CARDIOVASCULAR: Normal heart rate and rhythm. No murmur. RESPIRATORY: Lungs are clear, bilaterally. No wheezing. The patient did have a cough during the clinical visit more of a clearing of her throat. DIAGNOSTICS: None. Assessment/Plan Marcial was seen today for nasal congestion and cough. Diagnoses and all orders for this visit: Acute non-recurrent sinusitis, unspecified location (Primary) - amoxicillin (AMOXIL) 875 MG tablet; Take 1 tablet (875 mg total) by mouth 2 (two) times a day for 10 days Take with food. Conjunctivitis of both eyes, unspecified conjunctivitis type - gentamicin (GARAMYCIN) 0.3 % ophthalmic solution; Administer 1-2 drops into both eyes every 4 (four) hours for 7 days Discussed the plan of care with the patient. Prescribed amoxicillin 875 mg tablet, 1 tablet p.o. twice daily x10 days and gentamicin 0.3% solution, 1-2 drops every 4 hours while awake. The patient willcontact her construction inspector, to determine if they will continue the infusion for her RA, as she is now on an antibiotic. The patient agrees and understands this plan of care. Adriane Patel APRN, CNP documented in this encounter Plan of Treatment Not on filedocumented as of this encounter Visit Diagnoses Diagnosis Acute non-recurrent sinusitis, unspecifi ed location - Primary Conjunctivitis of both eyes, unspecified conjunctivitis type documented in this encounter Care Teams Photographer Assistant Relationship Specialty Start Date End Date Adriane Patel APRN, CNP PCP - General 09/22/17 07/06/19 100 [place] [address] documented as of this encounter
--- OUTSIDE RECORDS SUMMARY | 2021-09-05 00:14 | XMS_ITS | Encounter Summary ---
:1945 Author Organization [facility] Address [address] [place] [address] Care Team Providers Name Role Phone Ronak Patel TUBE SKIVER, GUIDE DELEGATE Primary Care Provider Reason for Visit Reason Comments Diabetes Type 2 Diabetes, now using i nsulin Consultation (Routine) - Closed Specialty Diagnoses / Procedures Referred By Contact Refer red To Contact Endocrinology Diagnoses Type 2 diabetes mellitus with other specified complication, without long-term current use of insulin (HCC) Bacilio Stewart MBBS [address] [place] [address] Referral ID Status Reason Start Date Expiration Date Visits V isits Requested Authorized [id number] Closed Specialty 07/19/2018 07/20/2019 1 1 Services Required Encounter Details Date Type Department Care Team Description 07/30/2018 Office Visit SE Diabetic Education Courtney Stewart mmad, MBBS [address] [place] [id number] Type 2 diabetes 2nd Floor Yossi Potts RN 210 [place] [address] mellitus with other [address] [place] [id number] complication, unspecified whe ther fdc insul in use (HCC) Social History Tobacco Use Types Packs/Day [...] No 12/23/2018 organizations such as confucianist groups, [employer], [employer]us[employer] or athletic groups, or school groups? How [...] encounter Progress Notes Yossi Potts RN - 07/30/2018 10:00 AM CDT [facility] Clinic Patient Name: Marcial Adams Patient Identifier: [id number] Service Location: [facility] DIABETIC EDUCATION 2ND FLOOR [address] [place] [id number] Service Date: 07/30/2018 PATIENT EDUCATION- DIABETES VISIT LOCATION: [facility] REFERRING CLINICIAN: JOSE DE JESUS Austin REFERRAL DATE: 07/19/2018 REASON FOR REFERRAL: Post program education REASON FOR REFERRAL: Type 2 Diabetes Mellitus, uncontrolled PREFERRED LEARNING STYLE: Observing Doing CLINICAL ASSESSMENT: Patient Age: 73 y.o. Height: BP Readings from Last 1 Encounters: 07/15/18 134/70 Weight: Wt Readings from Last 1 Encounters: 07/15/18 82.7 kg (182 lb 5.1 oz) BMI: Estimated body mass index is 31.9 kg/m?? as calculated from the following: Height as of 07/15/18: 1.61 m (5' 3.39). Weight as of 07/15/18: 82.7 kg (182 lb 5.1 oz). Basal Calorie Needs: Race/Ethnicity: White/ Preferred Language: Hungarian PERTINENT LABS: Hemoglobin A1C Lab Results Component Value Date HGBA1C 8.7 (H) 07/07/2018 LIPIDS Lab Results Component Value Date CHOL 221 (A) 02/24/2017 CHOL 152 01/15/2016 Lab Results Component Value Date HDL 44 02/24/2017 HDL 43 01/15/2016 Lab Results Component Value Date LDLCALC 115 (A) 02/24/2017 LDLCALC 65 01/15/2016 Lab Results Component Value Date TRIG 308 (A) 02/24/2017 TRIG 222 (A) 01/15/2016 TSH Lab Results Component Value Date TSH 2.05 04/22/2018 PERTINENT MEDICAL HISTORY: - Diabetes Mellitus type 2 MEDICATIONS: Last updated by: Adriane Patel, TUBE SKIVER, GUIDE DELEGATE On: 07/15/2018 DIABETES CARE ASSESSMENT: Blood Glucose Testing: Brand/Meter: Accu-Chek Guide Test Strips: Accu-Chek Guide Lancets: Accu-Chek Fast-Clix Blood Glucose target range: 100-140 mg/dL Blood Glucose Testing: check sugars twice a day, fasting and alternating before meals and bedtime. Insulin Pump: No Glucose Sensor: No Year of diabetes diagnosis: 2007 [place] [facility] [place], 2016, 2017. MEDICATION AND MONITORING RISKS: Starting a new medication (Basaglar/glargine insulin) NURSING DIAGNOSIS: Knowledge deficit- Related to Type 2 diabetes and the use of insulin INTERVENTION AND EVALUATION: Patient was seen for 90 minutes of which 75% was spent on education given on the following areas with post instruction knowledge assessed: DIABETES DISEASE PROCESS The food to glucose response- Needs review/assistance. The role of insulin in the body- Needs review/assistance. Mechanisms causing elevated blood glucose- Needs review/assistance. MONITORING How and when to test blood sugars- Competent Why and how to keep blood glucose records- Competent Hyperglycemia: signs, symptoms and treatment- Needs review/assistance Hypoglycemia: signs, symptoms and treatment- Needs review/assistance Sharps disposal- Competent MEDICATION Long acting insulin: onset, peak and duration- Needs review/assistance. Insulin administration, site selectation and rotation- Needs review/assistance. Injection techniques- Competent. Sharps disposal- Competent. LOWERING RISKS [place] set key driver license requirements when using insulin (non-commercial) - Needs review / assistance Patient here for diabetes education. Is accompanied by her , Alex. Diabetes Medications: Basaglar (glargine): 8 units , once a day, in the morning. She states that glipizide and Januvia that she had been taken have now been discontinued. Food/Meals: Meal times: Breakfast: 6:30-7:00AM Midday meal: 12 Noon. Evening meal: 5:30-6:00PM. Physical Activity: Says she tries to do some walking for physical activity. Home Blood Glucose Monitoring: Patient brings with her her blood glucose meter and written records which contain blood sugars and brief notation about food eaten. Since starting insulin patient's blood sugars have been: Fasting 177, 166, 158, 182, 168, 151, 154, 161. Noon: 179, 188, 188, 176, 227, 140, 204. Mid afternoon: 190, 160. Late afternoon: 188, 212, 299. 8:00-9:00PM: 190, 284, 257, 251, 186, 283. Other: 73-year-old woman. Says she has a high school education. . Retired. Patient states that she has been injecting insulin now for about a week. I asked patient to return a demonstration of the use of the Basaglar insulin pen device and pen needle, and she is able to do this, injecting into a sponge model. Patient says that she is injecting into her abdomen. When questioned, knows little other information about site selection and rotation,or about storing insulin. These were reviewed. We spent quite a bit of time discussing pattern management for making small (10%) changes in insulin dose, based on patterns of fasting blood sugars. Patient seems to have difficulty with the concept of what is 10% (even when I wrote this out, in terms of what is 10% of 10 or 20 or 30 or 40). In the end, I suggested to the patient that if she were to make changes in insulin doses, it would be by 1 unit increments based on, patterns of fasting blood sugars. Also to wait 3 to 4 days before making another change. I did give the patient a handoutexplaining, pattern management with long acting insulin, and some examples to illustrate how this would be done. I stated to the patient, for now, I would like to talk with her on a weekly basis to review her blood sugars and to see if she can appropriately predict what insulin changes will be made based on her blood sugar records. At their request, I also reviewed [place] set key driver license (non-commercial) requirements for persons using insulin. They were also given handouts relating to this. Follow-up: As above, I would like to talk with the patient, at least once a week, to review blood sugar records and to make insulin adjustment; also to see if patient can safely practice pattern management. Scheduled in clinic visits: 08/27/2018: With Dr. Stewart. 08/27/2018: With me. At that visit would want to review other topics relating to the use of insulin (sick day management,tips for travel, physical activity and insulin and mention the Glucagon Emergency Kit). May also ask if they have questions relating to other diabetes education management topics. ADDITIONAL EDUCATION IS: needed TOTAL DSMT MINUTES: 90 TOTAL MNT MINUTES: 0 DIABETES SELF-MANAGEMENT SUPPORT [...] bedtime. Patient reported achievement: All of thetime. 2. To get help with insulin adjustment, I will talk with the RN/special education paraeducator, once a week, , until I am able to confidently do this myself or until my next visit with my cork wirer. Patient reported achievement: New goal DIABETES MEDICATION GOAL: To bring blood sugars into normal range, I will take my medications as directed by my primary care provider/cork wirer. Patient achievement: All of the time Yossi Potts RN/CDE documented in this encounter Plan of Treatment Scheduled Referrals Name Type Priority Associated Order Schedule Diagnoses Ambulatory referral Outpatient Referral Routine Type 2 diabete s Ordered: to Diabetic mellitus with other 07/20/19 19 Education specified complication, without long-term current use of insulin (HCC) documented as of this encounter Visit Diagnoses Diagnosis Type 2 diabetes mellitus with other spec ified complication, unspecified whether fdc insulin use (HCC) documented in this encounter Care Teams Circular Gang Saw Operator Relationship Specialty Start Date End Date Adriane Patel, TUBE SKIVER, GUIDE DELEGATE PCP - General 09/22/17 07/06/19 [address] [place] [address] documented as of this encounter
--- OUTSIDE RECORDS SUMMARY | 2021-09-05 00:14 | XMS_ITS | Encounter Summary ---
:1945 Author Organization [facility] Address [address] [place] [address] Care Team Providers Name Role Phone Ronak Patel FORESTRY AID TECHNICIAN, COMMUNITY ARTIST Primary Care Provider Reason for Visit Reason Comments Shortness of Breath Encounter Details Date Type Department Care Team Description 10/29/2018 Office Visit Adriane Fernández Dyspnea, unspecified [address] M, FORESTRY AID TECHNICIAN, COMMUNITY ARTIST type (Primary Dx) [place], [place] 100 [facility] [address] [place] [address] Social History Tobacco Use Types Packs/Day Years [...] Sign Reading Time Taken Comments Blood Pressure 160/84 10/29/2018 10:59 AM CDT Pulse 82 10/29/2018 10:59 AM CDT Temperature 35.6 ??C (96 ??F) 10/29/2018 10:59 AM CDT Respiratory Rate 16 10/29/2018 10:59 AM CDT Oxygen Saturation 97% 10/29/2018 10:59 AM CDT Inhaled Oxygen Concentration - - Weight 82.5 kg (181 lb 14.1 oz) 10/29/2018 10:59 AM CDT Height 161 cm (5' 3.39) 10/29/2018 10:59 AM CDT Body Mass Index 31.83 10/29/2018 10:59 AM CDT documented in this encounter Patient Instructions Patient InstructionsChgarfield Patel APRN, CNP - 10/29/2018 11:00 AM CDT Will call with the lab results. documented in this encounter Progress Notes Adriane Patel APRN, CNP - 10/29/2018 11:00 AM CDT Estab Patient Visit Subjective Patient ID: Marcial Adams is a 73 y.o. female presenting for the following concerns. Chief Complaint Patient presents with ??? Shortness of Breath HPI: The patient is a pleasant 73-year-old female presenting ambulatory to the clinical setting today accompanied by her . The patient reports she has a sense of shortness of breath, as if she is notgetting a deep breath, for the past 2 weeks. The patient's past medical history includes benign paroxysmal positional vertigo, paresthesia of the skin, coronary artery disease, essential hypertension, postmenopausal atrophic vaginitis, stage III chronic kidney disease, gout, hyperlipidemia, subclinical hypothyroidism, type 2 diabetes without complications, anemia, rheumatoid arthritis, and intermittent lower extremity edema. The patient describes her dyspnea as a need to take a deep breath, a feeling she needs to yawn, which is fleeting, and alleviated with a deep cleansing breath. The patient does not have the symptoms when physically active. The patient recalls before her last angiogram, leading to her cardiac stent placement, she had shortness of breath and bilateral shoulder discomfort when inclining stairs, which she is not experiencing. The patient denies chest pain, discomfort, lightheadedness, dizziness, syncope, presyncope, and/or swelling in her hands or feet. She does not feel weak. The patient had a dry cough after eating a couple weeks ago, which resolved. No wheezing. No fever, no chills. No sore throat.The patient is no longer on her cholesterol medications, lisinopril, nor metoprolol, as she discontinued them secondary to bad dreams, with improvement in her dreams. The patient does have type 2 diabetes, checking her blood sugar once a day, and her hemoglobin A1c on 07/07/2018 was 8.7. The patient feels her rheumatoid arthritis pain is under good control at this time. The patient acknowledges she may be deconditioned, which may be contributing to her symptoms. The patient wonders if her symptoms could be stress, as they have a wedding at their home in 1 month, with a guest list of 500 people. ROS: GENERAL: No fever, no chills. CARDIOVASCULAR: See HPI. The patient feels a sense of needing to take a deep breath, which is fleeting, and not associated with activity. No chest pain, pressure, palpitations, peripheral edema, lightheadedness, dizziness, presyncope, syncope, and/or cardiac murmurs. RESPIRATORY: See HPI. The patient feels a sense of fleeting shortness of breath for the past 2 weeks, alleviated with taking a deep breath, when she is not physically active. No cough or wheezing. ENDOCRINOLOGY: The patient's continues to monitor her blood sugars and is under the care of endocrinology. MUSCULOSKELETAL: The patient does have a history of rheumatoid arthritis with her symptoms being currently controlled. PSYCHIATRIC: The patient wonders if her symptoms could be from stress, as she has an upcoming wedding at their home in 1 month, with a guest list of 500 people. The following portions of the patient's chart were reviewed in this encounter and updated as appropriate: Tobacco Allergies Meds Problems Med Hx Surg Hx Fam Hx Current Outpatient Medications: ??? ACCU-CHEK SIDDHARTH [...] day, Disp: 100 each, Rfl: 3 ??? SITagliptin (JANUVIA) 50 MG tablet, Take 1 tablet (50 mg total) by mouth 1 (one) time each day,Disp: 90 tablet, Rfl: 3 Objective Visit Vitals BP 160/84 (BP Location: Right arm, Patient Position: Sitting) Pulse 82 Temp (!) 35.6 ??C (96 ??F) (Temporal) Resp 16 Ht 1.61 m (5' 3.39) Wt 82.5 kg (181 lb 14.1 oz) SpO2 97% BMI 31.83 kg/m?? Smoking Status Never Smoker BSA 1.92 m?? GENERAL: The patient is alert, orientated, and in no apparent distress. INTEGUMENTARY: Skin is warm and dry. CARDIOVASCULAR: Normal heart rate and rhythm. No murmur. Blood pressure rechecked, 136/72 in the left arm. RESPIRATORY: Lungs are clear, bilaterally. No wheezing. The patient ambulated in the logan, and her oxygen level went from 96% to 98% on room air, pulse was stable in the 80s. MUSCULOSKELETAL: The patient moves freely about the room. DIAGNOSTICS: EKG, Chest xray, CBC with diff, ProBNP, lipid, and BMP. EKG, ventricular rate 65, normal sinus rhythm, no changes from previous EKG on April 22, 2018. Chest xray appears normal official radiology report is pending. Lab Results Component Value Date WBC 5.7 10/29/2018 HGB 11.0 (L) 10/29/2018 HCT 33.8 (L) 10/29/2018 MCV 90.4 10/29/2018 PLT 174 10/29/2018 Lab Results Component Value Date GLUCOSE 180 (H) 10/29/2018 CALCIUM 9.5 10/29/2018 NA 139 10/29/2018 K 4.1 10/29/2018 CO2 27 10/29/2018 CL 100 10/29/2018 BUN 20 10/29/2018 CREATININE 1.3 (H) 10/29/2018 Assessment/Plan Marcial was seen today for shortness of breath. Diagnoses and all orders for this visit: Dyspnea, unspecified type (Primary) - CBC Branch Off w/Diff; Future - Lipid panel; Future - BNPNT; Future - Basic metabolic panel; Future - ECG 12 lead - X-ray Chest 2 Views; Future - X-ray Chest 2 Views Discussed the plan of care with the patient and her . The patient be notified of her lab results. EKG normal sinus rhythm, normal EKG ventricular rate 65, no change from her EKG on April 22, 2018. Chest x-ray appears normal official radiology report is pending. Will likely recommend the patient resume Lisinopril and Crestor, with her history of coronary artery disease and hyperlipidemia, after reviewing the labs. The patient and her both agree and understand this plan of care. Adriane Patel APRN, COMMUNITY ARTIST documented in this encounter Plan of Treatment Not on filedocumented as of this encounter Procedures Procedure Name Priority Date/Time Associated Diagnosis Comme nts XR CHEST 2 VIEWS Routine 10/29/2018 11:59 AM Dyspnea, unspecif ied Results for this CDT type procedure are i n the results section. ECG 12-LEAD Routine 10/29/2018 11:50 AM Dyspnea, unspecified Results for this CDT type procedure are i n the results section. documented in this encounter Results X-ray Chest 2 Views (10/29/2018 11:59 AM CDT) Anatomical Region Laterality Modality Body Radiographic Imaging Specimen (Source) Anatomical Collection Method Collection Time Re ceived Time Location / / Volume Laterality 10/29/2018 11:59 AM CDT Impressions 10/29/2018 12:05 PM CDT IMPRESSION: No acute cardiopulmonary abnormality. Narrative 10/29/2018 12:05 PM CDT INDICATION: dyspnea COMPARISON: 04/22/2018 FINDINGS: Heart size is normal. ??Probable epiperi cardial fat pads, unchanged. ??Lungs are somewhat hyperinflated suggesting un derlying emphysema, unchanged. ?? Partially calcified aorta. ??Surgical ch anges right shoulder. ??Degenerative changes thoracic spine. Procedure Note Jackson Hutchins MD - 10/29/2018 INDICATION: dyspnea COMPARISON: 04/22/2018 FINDINGS: Heart size is normal. Probable epiperic ardial fat pads, unchanged. Lungs are somewhat hyperinflated suggesting un derlying emphysema, unchanged. Partially calcified aorta. Surgical ning nges right shoulder. Degenerative changes thoracic spine. IMPRESSION: No acute cardiopulmonary abnormality. Adriane Patel APRN, CNP IMG XR PROCEDURES ECG 12 lead (10/29/2018 11:50 AM CDT) Specimen (Source) Anatomical Collection Method Collection Time Re ceived Time Location / / Volume Laterality 10/29/2018 11:50 AM CDT Narrative 10/29/2018 12:00 AM CDT This result has an attachment that is no t available. Patient had an EKG today in clinic. Rosalie ent tolerated well. Paper copy sent for interpretation. Adriane Patel APRN, CNP ECG ORDERABLES (ABNORMAL) Basic metabolic panel (10/29/2018 11:40 AM CDT) P athologist Signature Sodium 139 135 - 145 10/29/2018 [facility] mmol/L 12:04 PM CDT [place] Potassium 4.1 3.5 - 5.1 10/29/2018 [facility] mmol/L 12:04 PM CDT [place] Comment: . Chloride 100 98 - 107 mmol/L 10/29/2018 12:04 PM CDT [facility] [place] Comment: . CO2 27 22 - 29 mmol/L 10/29/2018 12:04 PM CDT [facility] [place] Comment: . Creatinine 1.3 (H) 0.4 - 1.2 mg/dL 10/29/2018 12:04 PM CDT [facility] [place] Comment: . BUN 20 5 - 25 mg/dL 10/29/2018 12:04 PM CDT [facility] [place] Comment: . Glucose 180 (H) 70 - 100 mg/dL 10/29/2018 12:04 PM [facility] [place] CDT Calcium, Total,S 9.5 8.4 - 10.2 mg/dL 10/29/2018 12:04 PM [facility] [place] CDT Comment: . Fasting? No 10/29/2018 12:02 PM CDT [facility] [place] Comment: 1+ lipemic Specimen Anatomical Collection Method Collection Time Receive d Time (Source) Location / / Volume Laterality Blood (Blood, 10/29/2018 11:40 10/29/2018 Venous) AM CDT 12:01 PM CDT Adriane Patel FORESTRY AID TECHNICIAN, COMMUNITY ARTIST LAB BLOOD ORDERABLES Performing Organization Address City/State/ZIP Code Phon e Number [facility] [place] [address] [place] [address] (ABNORMAL) BNPNT (10/29/2018 11:40 AM CDT) P athologist Signature BNP 258 (H) 5 - 125 10/29/2018 [facility] pg/mL 7:09 PM CDT [facility] Comment: NT-proBNP values <300 pg/mL have a 99% n egative predictive value for excluding acute congestive hea rt failure. These diagnostic cutoff values are sugge sted for acute congestive heart failure: ?Cutoff ?Sensiti vity ?Specificity ??<50 yrs ?>450 ?97% ? 93% ??50-75 yrs ?>900 ?90% ? 82% ??>75 yrs ?>1800 ? 85% ? 73% When utilizing the NT-proBNP rule-in cut points listed above, further adjustment for impaired renal fu nction is typically not required. The results from this or any other [...] Location / / Volume Laterality Blood (Blood, 10/29/2018 11:40 10/29/2018 Venous) AM CDT 6:21 PM CDT Adriane Patel APRN, COMMUNITY ARTIST LAB BLOOD ORDERABLES Performing Organization Address City/State/ZIP Code Phon e Number [facility] [address] [place] [phone] (ABNORMAL) Lipid panel (10/29/2018 11:40 AM CDT) athologist Signature Cholesterol 243 (A) 0 - 199 10/29/2018 [facility] mg/dL 6:49 PM T [facility] Comment: Recommended by National Cholesterol Education Program (ATP III) -------- Cholesterol Ranges -------- <200 ? Desirable 200-239 ? Borderline high >=240 ? High Triglycerides 340 (A) 0 - 149 mg/dL 10/29/2018 6:[address] [facility] Comment: -------- TRIG Ranges -------- <150 ?Normal 150-199 ? Borderline high 200-499 ? High >=500 ? Very high HDL 36 (A) 40 - 60 mg/dL 10/29/2018 6:49 PM CDT [facility] Comment: -------- HDL Ranges -------- <40 ?Low 40-59 ?Normal >=60 ? Optimal LDL Calculated 139 (A) 0 - 99 mg/dL 10/29/2018 6:[address] [facility] Comment: -------- LDL Ranges -------- <100 ? Optimal 100-129 ?Near optimal/above op timal 130-159 ?Borderline high 160-189 ?High >=190 ?Very high Specimen Anatomical Collection Method Collection Time Receive d Time (Source) Location / / Volume Laterality Blood (Blood, 10/29/2018 11:40 10/29/2018 Venous) AM CDT 6:21 PM CDT Adriane Patel APRN, COMMUNITY ARTIST LAB BLOOD ORDERABLES Performing Organization Address City/State/ZIP Code Phon e Number [facility] [address] [place] [address] (ABNORMAL) CBC Branch Off w/Diff (10/29/2018 11:40 AM CDT) [facility] gist Method Time Signature WBC 5.7 3.5 - 10.5 10/29/2018 [facility] K/uL 12:04 PM CDT [place] RBC 3.74 (L) 3.90 - 10/29/2018 [facility] 5.00 M/uL 12:04 PM CDT [place] Hemoglobin 11.0 (L) 12.0 - 10/29/2018 [facility] 15.5 g/dL 12:04 PM CDT [place] Hematocrit 33.8 (L) 35.0 - 10/29/2018 [facility] 44.0 % 12:04 PM CDT [place] Platelets 174 150 - 450 10/29/2018 [facility] K/uL 12:04 PM CDT [place] MCV 90.4 81.6 - 10/29/2018 [facility] 98.3 fL 12:04 PM CDT [place] MCH 29.4 26.0 - 10/29/2018 [facility] 32.0 pg 12:04 PM CDT [place] MCHC 32.5 32.0 - 10/29/2018 [facility] 36.0 g/dL 12:04 PM CDT [place] RDW 12.8 11.9 - 10/29/2018 [facility] 15.5 % 12:04 PM CDT [place] Lymphocytes % 22.0 18.0 - 10/29/2018 [facility] 45.0 % 12:04 PM CDT [place] Mid-size Cells 7.0 3.3 - 10.1 10/29/2018 [facility] % 12:04 PM CDT [place] Granulocytes/Jean Claude 71.0 45.8 - 10/29/2018 [facility] trophils 73.7 % 12:04 PM CDT [place] Lymphocytes 1.3 0.9 - 2.9 10/29/2018 [facility] Absolute K/uL 12:04 PM CDT [place] MIDS Absolute 0.4 0.2 - 0.8 10/29/2018 [facility] K/uL 12:04 PM CDT [place] Granulocytes/Jean Claude 4.0 2.1 - 8.7 10/29/2018 [facility] trophils K/uL 12:04 PM CDT [place] Absolute Specimen Anatomical Collection Method Collection Time Receive d Time (Source) Location / / Volume Laterality Blood (Blood, 10/29/2018 11:40 10/29/2018 Venous) AM CDT 12:01 PM CDT Adriane Patel APRN, LEONARD LAB BLOOD ORDERABLES Performing Organization Address City/State/ZIP Code Phon e Number [facility] [place] [address] [place] [address] documented in this encounter Visit Diagnoses Diagnosis Dyspnea, unspecified type - Primary documented in this encounter Care Teams Journal Box Inspector Relationship Specialty Start Date End Date Adriane Patel APRN, COMMUNITY ARTIST PCP - General 09/22/17 07/06/19 100 [facility] [place] [address] documented as of this encounter
--- OUTSIDE RECORDS SUMMARY | 2021-09-05 00:14 | XMS_ITS | Encounter Summary ---
:1945 Author Organization [facility] Address [address] [place] [address] Care Team Providers Name Role Phone Ronak Patel POMOLOGY TEACHER, BIRD TENDER Primary Care Provider Reason for Visit Reason Comments Diabetes Encounter Details Date Type Department Care Team Description 08/27/2018 Office Visit SE Endocrinology Bacilio Stewart, Type 2 diabetes mellitus wit h other specified complication, unspecified whether dedicated intermodal truck driver insulin use (HCC) (Primary Dx); [address] [facility] MBBS Hyperlipidemia, unspecified hyperlipidem ia type; [place] [address] [place] [address] Essential hypertension; [phone] [place], [place] Stage 3 chroni c kidney disease (HCC) [address] Social History Tobacco Use Types Packs/Day Years [...] More than 4 times per year 12/23/2018 yazidism services? Do you belong to any clubs [...] Reading Time Taken Comments Blood Pressure 120/80 08/27/2018 9:32 AM CDT Pulse 76 08/27/2018 9:32 AM CDT Temperature 36.4 ??C (97.6 ??F) 08/27/2018 9:32 AM CDT Respiratory Rate 16 08/27/2018 9:32 AM CDT Oxygen Saturation 98% 08/27/2018 9:32 AM CDT Inhaled Oxygen Concentration - - Weight 81.1 kg (178 lb 12.7 oz) 08/27/2018 9:32 AM CDT Height 161 cm (5' 3.39) 08/27/2018 9:32 AM CDT Body Mass Index 31.29 08/27/2018 9:32 AM CDT documented in this encounter Patient Instructions Patient InstructionsJOSE DE JESUS Austin - 08/27/2018 9:30 AM CDT - Increase Basaglar to 13 units daily. - Continue same dose of Glipizide and Victoza. - Check sugars twice a day, fasting and alternating before meals and bedtime. Always check when symptoms of low sugars. - Watch your diet for excess carbs and avoid snacking. - Physical activity as tolerated. - Follow up in 3 months, with nonfasting labs before visit. documented in this encounter Progress Notes JOSE DE JESUS Austin - 08/27/2018 9:30 AM CDT Estab Patient Visit Patient: Marcial Adams 73 y.o. female 1945 Date of Service: 08/27/18 Reason for visit: Marcial Adams is a 73 y.o. female presenting for follow up of diabetes. History of presenting illness: Marcial Adams is accompanied by her and granddaughter today.She was diagnosed with diabetes in 2007. Most recent a1c was 8.7% in 06/2018. Current diabetes regimen includes Glipizide 10 mg BID and Januvia 50 mg daily. She elected to start basal insulin after last visit. Our perioperative educator, Denny Delroy, has been regularly in touch with her and adjusting insulin dose. Currently she is on insulin glargine 12 units daily. Metformin was not restarted due to borderline kidney function. Glucometer showed average 198 with SD 69, range 109-413. Morning sugars are mostly in the good rangebut evening sugars are usually still above goal. Overall, sugars are trending better since startinginsulin. She usually checks 2-4 times a day. No recent episodes of hypoglycemia. She eats 3 meals/day and an afternoon snack. Diet control continues to be a challenge for her. She notices significant spikes in her sugars after eating sweets. No smoking. Last eye exam showed no retinopathy in [place]. Denies any numbness or tingling sensation. No skin changes or diabetic foot ulcers. No regularexercise these days. PM/SH: Past Medical History: Diagnosis [...] nightmares ??? Azathioprine ??? Azithromycin ??? Olmesartan Family [...] file Gets together: Not on file Attends yazidism service: Not on file Active member of [...] mentioned above. Physical Examination: Visit Vitals BP 120/80 Pulse 76 Temp 36.4 ??C (97.6 ??F) (Temporal) Resp 16 Ht 1.61 m (5' 3.39) Wt 81.1 kg (178 lb 12.7 oz) SpO2 98% BMI 31.29 kg/m?? Smoking Status Never Smoker BSA 1.9 m?? Constitutional: Appears well, NAD HEENT: AT/NC, EOMI, PERRLA, no lid lag, no retraction, no proptosis. Neck: Supple, No LAD Thyroid: Not enlarged Respiratory: Normal regular breathing, no wheezing, no crepts, no rhonchi Cardiovascular: S1+S2 no murmurs, rubs or gallops Musculoskeletal: Normal strength in all 4 extremities Neurological: AAOx3, normal reflexes Ext: Trace edema, no tremors Skin: No dry skin, normal hair distribution, no hyperpigmentation Psych: Normal mood, pleasant affect. Laboratory Work up: Reviewed Imaging: Reviewed Assessment and Plan: 1- Diabetes Mellitus type 2: Suboptimal control but overall improving after starting insulin. No hypoglycemia. Controlling her diet continues to be a challenge for the patient. I again discussed management of diabetes with her and various strategies to improve glycemic control. - Continue with current dose of Glipizide and Januvia for now. - Increase insulin glargine dose to 13 units daily. She will remain in contact with our diabetes education for continued insulin dose adjustment. - I again discussed substituting Januvia with an GLP-1 agonist, reviewed the risks and benefits at length. Patient was provided with information materials about GLP-1 receptor agonist, she is going toreview.. - Patient was advised to continue to check sugars twice a day, fasting and alternating before meals and bedtime. - Watch your diet for excess carbs and avoid snacking. - Physical activity/exercise as tolerated. 2- Diabetes related complications: - Lipid: LDL 61 in 07/2018. Has been prescribed rosuvastatin. - No microalbuminuria in 02/2017. She has CKD. Creatinine was 1.27, eGFR 42 in 07/2018. She is on an ACEI. - No [...] with the plan. Bacilio Stewart MD Staff Experimental Physicist Adriane Patel APRN, LEONARD - 08/27/2018 9:30 AM CDT Reviewed. documented in this encounter Plan of Treatment Not on filedocumented as of this encounter Results (ABNORMAL) Hemoglobin A1c (10/29/2018 11:40 AM CDT) Analysis Performed At Patho logist Time Signature Hemoglobin A1C 8.0 (H) 4.0 - 5.6 10/29/2018 [place] % A1C 7:20 PM CDT [facility] Comment: Reference [...] (Source) Location / / Volume Laterality Blood 10/29/2018 11:40 10/29/2018 AM CDT 6:21 PM CDT Bacilio DELA CRUZ LAB BLOOD ORDERABLES Performing Organization Address City/State/ZIP Code Phon e Number [facility] [address] [place] [address] documented in this encounter Visit Diagnoses Diagnosis Type 2 diabetes mellitus with other spec ified complication, unspecified whether half-way insulin use (HCC) - Primary Hyperlipidemia, unspecified hyperlipidem ia type Essential hypertension Unspecified essential hypertension Stage 3 chronic kidney disease (HCC) documented in this encounter Care Teams Supervisor Loading Relationship Specialty Start Date End Date Adriane Patel, POMOLOGY TEACHER, BIRD TENDER PCP - General 09/22/17 07/06/[address] [place] [id number] documented as of this encounter
--- OUTSIDE RECORDS SUMMARY | 2021-09-05 00:14 | XMS_ITS | Encounter Summary ---
:1945 Author Organization [facility] Address [address] [place] [address] Care Team Providers Name Role Phone Ronak Patel CENTRAL SUPPLY AIDE, STICK FEEDER Primary Care Provider Encounter Details Date Type Department Care Team Description 07/15/2018 Lab [place] Dysuria; [address] Lower extremity edema [place], [place] [address] Social History Tobacco Use [...] Name Priority Date/Time Associated Comments Diagnosis GLOMERULAR FILTRATION Routine 07/15/2018 5:05 Re sults for this RATE PM CDT procedure are i n the results section. CBC BRANCH OFFICE Routine 07/15/2018 5:05 Result s for this W/DIFF PM CDT procedure are i n the results section. N-TERMINAL PROBNP Routine 07/15/2018 5:05 Lower extremity Res ults for this PM CDT edema procedure are i n the results section. CREATININE, SERUM Routine 07/15/2018 5:05 Result s for this PM CDT procedure are i n the results section. SEDIMENTATION RATE, Routine 07/15/2018 5:05 Resu lts for this AUTOMATED PM CDT procedure are i n the results section. C-REACTIVE PROTEIN Routine 07/15/2018 5:05 Resul ts for this PM CDT procedure are i n the results section. ALT Routine 07/15/2018 5:05 Results for this PM CDT procedure are i n the results section. AST Routine 07/15/2018 5:05 Results for this PM CDT procedure are i n the results section. ALBUMIN Routine 07/15/2018 5:05 Results for this PM CDT procedure are i n the results section. URINE CULTURE Routine 07/15/2018 4:05 Dysuria Results fo r this PM CDT procedure are i n the results section. URINALYSIS-MICROSCOPIC Routine 07/15/2018 4:00 Dysuria R esults for this EXAM (REFLEXED) PM CDT procedure ar e in the results section. URINALYSIS WITH REFLEX Routine 07/15/2018 4:00 Dysuria R esults for this MICROSCOPIC PM CDT procedure are i n the results section. documented in this encounter Results (ABNORMAL) Glomerular filtration rate (GFR) (07/15/2018 5:05 PM CDT) P athologist Signature GFR 40 (A) 07/16/2018 [facility] 1:32 PM CDT [facility] 49 (A) 07/16/2018 [facility] [place] GFR 1:32 PM CDT [facility] Comment: GFR calculated from serum creatinine v alue Chronic Kidney Disease less than 60 mL/m in/1.73 m2 Kidney Failure less than 15 mL/min/1.73 m2 Note: effective 07/01/06 IDAK-Traceable MDRD Study Equation used. Specimen Anatomical Collection Method Collection Time Receive d Time (Source) Location / / Volume Laterality 07/15/2018 5:05 07/15/2018 PM CDT 5:05 PM CDT Narrative [facility] - 05/3 02/2018 1:32 PM CDT Called to CALL CANCELLED - RESULTS FAXED , , 07:51 07/16/2018 [id number] Outside Referring Lab Provider LAB BLOOD ORDERABLES Performing Organization Address City/State/ZIP Code Phon e Number [facility] [address] [place] [address] (ABNORMAL) CBC Branch Off w/Diff (07/15/2018 5:05 PM CDT) [facility] gist Method Time Signature WBC 7.3 3.5 - 10.5 07/15/2018 [facility] K/uL 5:12 PM CDT [place] RBC 3.68 (L) 3.90 - 07/15/2018 [facility] [place] 5.00 M/uL 5:12 PM CDT [place] Hemoglobin 10.9 (L) 12.0 - 07/15/2018 [facility] 15.5 g/dL 5:12 PM CDT [place] Hematocrit 33.1 (L) 35.0 - 07/15/2018 [facility] 44.0 % 5:12 PM CDT [place] Platelets 191 150 - 450 07/15/2018 [facility] K/uL 5:12 PM CDT [place] MCV 89.9 81.6 - 07/15/2018 [facility] 98.3 fL 5:12 PM CDT [place] MCH 29.6 26.0 - 07/15/2018 [facility] 32.0 pg 5:12 PM CDT [place] MCHC 32.9 32.0 - 07/15/2018 [facility] 36.0 g/dL 5:12 PM CDT [place] RDW 13.0 11.9 - 07/15/2018 [facility] 15.5 % 5:12 PM CDT [place] Lymphocytes % 19.1 18.0 - 07/15/2018 [facility] 45.0 % 5:12 PM CDT [place] Mid-size Cells 8.6 3.3 - 10.1 07/15/2018 [facility] % 5:12 PM CDT [place] Granulocytes/Jean Claude 72.3 45.8 - 07/15/2018 [facility] trophils 73.7 % 5:12 PM CDT [place] Lymphocytes 1.4 0.9 - 2.9 07/15/2018 [facility] Absolute K/uL 5:12 PM CDT [place] MIDS Absolute 0.6 0.2 - 0.8 07/15/2018 [facility] K/uL 5:12 PM CDT [place] Granulocytes/Jean Claude 5.3 2.1 - 8.7 07/15/2018 [facility] trophils K/uL 5:12 PM CDT [place] Absolute Specimen Anatomical Collection Method Collection Time Receive d Time (Source) Location / / Volume Laterality 07/15/2018 5:05 07/15/2018 PM CDT 5:11 PM CDT Outside Referring Lab Provider LAB BLOOD ORDERABLES Performing Organization Address City/State/ZIP Code Phon e Number [facility] [place] [address] [place] [address] AST (07/15/2018 5:05 PM CDT) athologist Signature AST 25 8 - 43 U/L 07/16/2018 [facility] 1:32 PM CDT [facility] Specimen Anatomical Collection Method Collection Time Receive d Time (Source) Location / / Volume Laterality 07/15/2018 5:05 07/16/2018 PM CDT 12:40 PM CDT [facility] - 06/18 1:32 PM CDT Called to CALL CANCELLED - RESULTS FAXED , , 07:51 07/16/2018 [id number] Outside Referring Lab Provider LAB BLOOD ORDERABLES Performing Organization Address City/[facility]/ZIP Code Phon e Number [facility] [address] [place] [address] (ABNORMAL) C-reactive protein ([facility] preferred) (07/15/2018 5:05 PM CDT) athologist Signature CRP 21.6 (H) 0.0 - 9.9 07/16/2018 [facility] mg/L 1:39 PM CDT [facility] Comment: . Specimen Anatomical Collection Method Collection Time Receive d Time (Source) Location / / Volume Laterality 07/15/2018 5:05 07/16/2018 PM CDT 12:30 PM CDT [facility] - 06/18 1:39 PM CDT Called to CALL CANCELLED - RESULTS FAXED , , 07:51 07/16/2018 [id number] Outside Referring Lab Provider LAB BLOOD ORDERABLES Performing Organization Address City/State/ZIP Code Phon e Number [facility] [address] [place] [phone] (ABNORMAL) Creatinine, Serum (07/15/2018 5:05 PM CDT) athologist Signature Creatinine 1.3 (H) 0.4 - 1.2 07/16/2018 [facility] mg/dL 1:32 PM CDT [facility] Specimen Anatomical Collection Method Collection Time Receive d Time (Source) Location / / Volume Laterality 07/15/2018 5:05 07/16/2018 PM CDT 12:40 PM CDT [facility] - 06/18 1:32 PM CDT Called to CALL CANCELLED - RESULTS FAXED , , 07:51 07/16/2018 [email or web address] Outside Referring Lab Provider LAB BLOOD ORDERABLES Performing Organization Address City/[facility]/ZIP Code Phon e Number [facility] [address] [place] [phone] ALT (07/15/2018 5:05 PM CDT) athologist Signature ALT (SGPT) 22 0 - 34 U/L 07/16/2018 [facility] 1:32 PM CDT [facility] Specimen Anatomical Collection Method Collection Time Receive d Time (Source) Location / / Volume Laterality 07/15/2018 5:05 07/16/2018 PM CDT 12:40 PM CDT [facility] - 06/18 1:32 PM CDT Called to CALL CANCELLED - RESULTS FAXED , , 07:51 07/16/2018 [email or web address] Outside Referring Lab Provider LAB BLOOD ORDERABLES Performing Organization Address City/State/ZIP Code Phon e Number [facility] [address] [place] [phone] Albumin (07/15/2018 5:05 PM CDT) athologist Signature Albumin, Serum 4.0 3.5 - 5.0 07/16/2018 [facility] g/dL 1:32 PM CDT [facility] Specimen Anatomical Collection Method Collection Time Receive d Time (Source) Location / / Volume Laterality 07/15/2018 5:05 07/16/2018 PM CDT 12:40 PM CDT Narrative [facility] - 06/18 1:32 PM CDT Called to CALL CANCELLED - RESULTS FAXED , , 07:51 07/16/2018 [email or web address] Outside Referring Lab Provider LAB BLOOD ORDERABLES Performing Organization Address [facility]/ZIP Code Phon e Number [facility] [address] [place] [address] (ABNORMAL) ESR-Sed rate (07/15/2018 5:05 PM CDT) P athologist Signature Sed Rate 74 (H) 0 - 29 07/16/2018 [facility] mm/hr 1:35 PM CDT [facility] Specimen Anatomical Collection Method Collection Time Receive d Time (Source) Location / / Volume Laterality 07/15/2018 5:05 07/16/2018 PM CDT 12:37 PM CDT [facility] - 06/18 1:35 PM CDT Called to CALL CANCELLED - RESULTS FAXED , , 07:51 07/16/2018 [email or web address] Outside Referring Lab Provider LAB BLOOD ORDERABLES Performing Organization Address [facility] Phon e Number [facility] [address] [place] [address] (ABNORMAL) BNPNT (07/15/2018 5:05 PM CDT) athologist Signature BNP 267 (H) 5 - 125 07/16/2018 [facility] pg/mL 1:24 PM CDT [facility] Comment: NT-proBNP values [...] Location / / Volume Laterality Blood (Blood, 07/15/2018 5:05 07/16/2018 Venous) PM CDT 12:30 PM CDT Adriane Patel APRN, CNP LAB BLOOD ORDERABLES Performing Organization Address City/[facility]/ZIP Code Phon e Number [facility] [address] [place] [phone] Urine culture (clean catch) (07/15/2018 4:05 PM CDT) [facility] Method Time Signature Urine Culture <10,000 07/16/2018 [place] cfu/ml No 12:55 PM CDT [facility] further ID. [facility] Specimen Anatomical Collection Method Collection Time Receive d Time (Source) Location / / Volume Laterality Urine, Clean 07/15/2018 4:05 07/16/2018 Catch PM CDT 12:35 PM CDT Narrative [facility] - 06/18 12:55 PM CDT Patient does not have an Amoxicillin or PCN allergy Adriane Patel APRN, CNP LAB MICROBIOLOGY - GENERA L ORDERABLES Performing Organization Address City/[facility]/ZIP [facility] Phon e Number [facility] [address] [place] [address] (ABNORMAL) Urinalysis-Microscopic Exam (07/15/2018 4:00 PM CDT) Patholo gist Method Time Signature Casts, urine NONE SEEN 0-2 Hyaline 07/15/2018 [facility] /lpf 4:16 PM CDT [place] Significant NONE SEEN None Seen 07/15/2018 [facility] casts, urine /lpf 4:16 PM CDT [place] RBC, Urine 11-20 (A) 0 - 3 /hpf 07/15/2018 [facility] 4:16 PM CDT [place] WBC, Urine 11-20 (A) /hpf 07/15/2018 [facility] 4:16 PM CDT [facility] Comment: Male Ref Range ? 0-3/hpf Female Ref Range ?? 0-10/hpf Squamous Epithelial, 1+ (A) Few /lpf 07/15/2018 4:16 PM [facility] [place] Urine CDT Trans Epithelial, NONE SEEN 0 - 3 /hpf 07/15/2018 4:16 PM [facility] [place] Urine CDT Renal Tubular Cells, NONE SEEN 0 - 1 /hpf 07/15/2018 4:16 P M [facility] [place] Urine CDT Bacteria, Urine 2+ (A) None Seen /hpf 07/15/2018 4:16 PM [facility] [place] CDT Specimen Anatomical Collection Method Collection Time Receive d Time (Source) Location / / Volume Laterality 07/15/2018 4:00 07/15/2018 PM CDT 4:00 PM CDT Adriane Patel APRN, CNP LAB URINE ORDERABLES Performing Organization Address City/State/ZIP Code Phon e Number [facility] [place] [address] [place] [address] (ABNORMAL) Urinalysis with reflex microscopic (clean catch) (07/15/2018 4:00 PM CDT) [facility] gist Method Time Signature Type CLEAN CATCH 07/15/2018 [facility] 4:16 PM CDT [place] Color, Urine STRAW YELLOW 07/15/2018 [facility] 4:16 PM CDT [place] Clarity, HAZY (A) CLEAR 07/15/2018 [facility] Urine 4:16 PM CDT [place] Glucose, NEGATIVE NEGATIVE 07/15/2018 [facility] Urine mg/dL 4:16 PM CDT [place] Bilirubin, NEGATIVE NEGATIVE 07/15/2018 [facility] Urine 4:16 PM CDT [place] Ketones, NEGATIVE NEGATIVE 07/15/2018 [facility] Urine mg/dL 4:16 PM CDT [place] Specific 1.020 1.000 07/15/2018 [facility] [place], ->=1.030 4:16 PM CDT [place] Urine Blood, Urine TRACE (A) NEGATIVE 07/15/2018 [facility] 4:16 PM CDT [place] pH, Urine 5.5 5.0 - 7.0 07/15/2018 [facility] 4:16 PM CDT [place] Protein, NEGATIVE NEGATIVE-TRA 07/15/2018 [facility] Urine CE mg/dL 4:16 PM CDT [place] Urobilinogen, 0.2 0.2 - 1.0 07/15/2018 [facility] Urine E.U./dL 4:16 PM CDT [place] Nitrite, NEGATIVE NEGATIVE 07/15/2018 [facility] Urine 4:16 PM CDT [place] Leukocytes, MODERATE (A) NEGATIVE 07/15/2018 [facility] Urine 4:16 PM CDT [place] Specimen Anatomical Collection Method Collection Time Receive d Time (Source) Location / / Volume Laterality Urine (Urine, 07/15/2018 4:00 07/15/2018 Clean Catch) PM CDT 4:00 PM CDT Adriane Patel APRN, CNP LAB URINE ORDERABLES Performing Organization Address City/State/ZIP Code Phon e Number [facility] [place] [address] [place] [address] documented in this encounter Visit Diagnoses Diagnosis Dysuria Lower extremity edema Edema documented in this encounter Care Teams Hi Ranger Operator Relationship Specialty Start Date End Date Adriane Patel APRN, STICK FEEDER PCP - General 09/22/17 07/06/19 [address] [facility] [place] [address] documented as of this encounter
--- OUTSIDE RECORDS SUMMARY | 2021-09-05 00:14 | XMS_ITS | Encounter Summary ---
:1945 Author Organization [facility] Address [address] [place] [address] Care Team Providers Name Role Phone Ronak Patel APRN, RN PALLIATIVE CARE Primary Care Provider Encounter Details Date Type Department Care Team Description 08/02/2018 Telephone SE Diabetic Education 2nd Bacilio Stewart MBBS Floor [address] [facility] SE [address] [place] [address] [place], [place] [address] [phone] Social History Tobacco Use Types Packs/Day Years [...] Telephone Encounter - Yossi Potts RN - 08/02/2018 9:36 AM CDT On 08/01/2018 you wrote: Thank you for seeing her. Please let her know that she was not supposed to discontinue glipizide or januvia. Januvia was to be discontinued only if she started GLP-1 agonist but she did not. I called the patient and gave her your recommendations as above. I stated that I would like to talkwith her in a couple of days to see what her blood sugars are like after restarting the pills and for possible insulin adjustment at that time. We will documented in this encounter Plan of Treatment Not on filedocumented as of this encounter Visit Diagnoses Not on filedocumented in this encounter Care Teams Clinical Studies Specialist Relationship Specialty Start Date End Date Adriane Patel, MAL, RN PALLIATIVE CARE PCP - General 09/22/17 07/06/19 100 [place] [address] documented as of this encounter
--- OUTSIDE RECORDS SUMMARY | 2021-09-05 00:14 | XMS_ITS | Encounter Summary ---
:1945 Author Organization [facility] Address [address] [place] [address] Care Team Providers Name Role Phone Ronak Patel UI UX ENGINEER, REGISTRATION OFFICER Primary Care Provider Encounter Details Date Type Department Care Team Description 07/20/2018 Telephone [place] Adriane Patel, [address] UI UX ENGINEER, [place], [place] [address] [address] [facility] [address] [phone] [place], [place] [address] Social History Tobacco Use [...] Notes Telephone Encounter - Adriane Patel APRN, REGISTRATION OFFICER - 07/20/2018 4:24 PM CDT The patient will start a low dose of Lasix 10 mg daily x 7 days and will be educated on insulin injection. documented in this encounter Plan of Treatment Not on filedocumented as of this encounter Visit Diagnoses Not on filedocumented in this encounter Care Teams Manager Implementation Relationship Specialty Start Date End Date Adriane Patel APRN, CNP PCP - General 09/22/17 07/06/19 [address] [facility] [place] [address] documented as of this encounter
--- OUTSIDE RECORDS SUMMARY | 2021-09-05 00:14 | XMS_ITS | Encounter Summary ---
:1945 Author Organization [facility] Address [address] [place] [address] Care Team Providers Name Role Phone Ronak Patel CYBER POLICY AND STRATEGY PLANNER, WASTE HAND Primary Care Provider Reason for Referral Consultation (Routine) - Closed Specialty Diagnoses / Procedures Referred By Contact Refer red To Contact Endocrinology Diagnoses Type 2 diabetes mellitus with other specified complication, without long-term current use of insulin (HCC) Bacilio Stewart MBBS [address] [place] [address] Referral ID Status Reason Start Date Expiration Date Visits V isits Requested Authorized [id number] Closed Specialty 07/19/2018 07/20/2019 1 1 Services Required Scheduling Instructions Staff from this department will contact the patient to schedule an appointment. Reason for Visit Reason Onset Date Comments question 07/16/2018 Encounter Details Date Type Department Care Team Description 07/16/2018 Telephone SE Endocrinology Bacilio Stewart MBBS question [address] [place] [address] [address], [place] [address] [place] [address] (Wo rk) Social History Tobacco Use Types [...] or relatives? How often do you attend episcopal or More than 4 times per year 12/23/2018 mormon services? Do you belong to any clubs or No 12/23/2018 organizations such as episcopal groups, unions, [employer] or athletic groups, or school groups? How [...] Telephone Encounter - Rebecca Ibrahim MA - 07/19/2018 10:25 AM CDT Patient informed of above message and verbalized an understanding. Rx for pen needles and Diabetic referral order started. Please complete and forward to ENDO PSR to help schedule. Telephone Encounter - JOSE DE JESUS Austin - 07/16/2018 4:27 PM CDT Those numbers look a little better than before. Anyway, I am fine if she would like to start insulin, instead of Ozempic. I will suggest starting insulin glargine 8 units daily. It might be worth to get in touch with the diabetes education for initiation and titration of insulin. If she is willing, I can place a referral. Telephone Encounter - Kina Donato LPN - 07/16/2018 9:45 AM CDT Pt was seen on 07/07/18 for DM consultation. She is currently on glipizide 10mg 2 times daily and januvia 50mg daily. She had labs done following visit and Dr Stewart suggested starting ozempic and if she did that, she should stop the januvia. She did not start on the ozempic as she wanted to think about it and do some research. She called today and states she would like to do insulin instead of ozempic.Her blood sugars are as follows: 07/08 183 at 10pm 07/09 126 at 6am and 192 at 10pm 07/10 188 at noon 07/11 157 at 6am 07/13 158 at 6am; 184 at 5:30pm; 135 at 10pm 07/14 114 at 6am and 210 at 5pm 07/15 147 at 6am; 204 at 11am; 120 at 6pm 07/16 143 at 6am Telephone Encounter - Alber Batista - 07/16/2018 9:11 AM CDT Patient is undecided about taking insulin or getting a shot once a week. She would like to talk to you as she is wanting the insulin now but needing to know what she would be using. Please advise and return call documented in this encounter Plan of Treatment [...] Primary documented in this encounter Care Teams Health Data Administrator Relationship Specialty Start Date End Date Adriane Patel, CYBER POLICY AND STRATEGY PLANNER, WASTE HAND PCP - General 09/22/17 07/06/19 100 [facility] [place] [id number] documented as of this encounter
--- OUTSIDE RECORDS SUMMARY | 2021-09-05 00:14 | XMS_ITS | Encounter Summary ---
:1945 Author Organization [facility] Address [address] [place] [address] Care Team Providers Name Role Phone Ronak Patel APRN, CNP Primary Care Provider Reason for Referral Consultation (Routine) - Closed Specialty Diagnoses / Procedures Referred By Contact Refer red To Contact Diagnoses Lower extremity edema Adriane Patel, [facility] - [address] [address] [place] [address] Phone: Fax: Referral ID Status Reason Start Date Expiration Date Visits Requ ested Visits Authorized [id number] Closed 07/18/2018 07/19/2019 1 1 Reason for Visit Reason Comments UTI Encounter Details Date Type Department Care Team Description 07/15/2018 Office Visit [place] Adriane Patel Lower extremity edema (Prima ry Dx); [address], LEONARD RESENDEZ Dysuria; [place], [place] 100 [facility] Anemia, unspecified type; [address] [place] [address] Rosacea [phone] Social History Tobacco Use Types Packs/Day Years [...] 12/23/2018 organizations such as muslim groups, unions, [place] or athletic groups, or school groups? How [...] Sign Reading Time Taken Comments Blood Pressure 134/70 07/15/2018 3:55 PM CDT Pulse 82 07/15/2018 3:55 PM CDT Temperature 36.2 ??C (97.2 ??F) 07/15/2018 3:55 PM CDT Respiratory Rate 16 07/15/2018 3:55 PM CDT Oxygen Saturation 97% 07/15/2018 3:55 PM CDT Inhaled Oxygen Concentration - - Weight 82.7 kg (182 lb 5.1 oz) 07/15/2018 3:55 PM CDT Height 161 cm (5' 3.39) 07/15/2018 3:55 PM CDT Body Mass Index 31.9 07/15/2018 3:55 PM CDT documented in this encounter Patient Instructions Patient InstructionsChgarfield Patel APRN, CNP - 07/15/2018 4:00 PM CDT Calcium 600 mg with Vitamin D 400 international units/tablet, take one tablet twice daily (and in the winter in addition in the winter take Vitamin 1000 international unit daily) Will call with the lab results documented in this encounter Progress Notes Adriane Patel APRN, CNP - 07/15/2018 4:00 PM CDT Estab Patient Visit Subjective Patient ID: Marcial Adams is a 73 y.o. female presenting for the following concerns. Chief Complaint Patient presents with ??? UTI HPI: The patient is a pleasant 73-year-old female presenting ambulatory to the clinical setting today concerned she has a urinary tract infection. The patient reports has had intermittent burning, itching with urination for the past 2 to 3 weeks, which is not necessarily worsening. No hematuria, but possibly urinary frequency and urgency. No fever, no chills. She has experienced mild lower abdominal discomfort bilaterally. No nausea nor vomiting. The patient is experiencing slight diarrhea, which is not new. The patient's hemoglobin A1c on 07/07/2018 was 8.7, and she was evaluated by endocrinology, with the recommendation of starting insulin or Ozempic. The patient decided to proceed with a prescription forOzempic, which she has not picked up, as she is hesitant, indecisive about starting the medication. The patient reports she started walking for 10 minutes after each meal; therefore, she is attaining 30 minutes of walking per day. She reports since she started walking, her evening blood sugars are always under 200, and this morning her fasting blood sugar was 135. The patient has noticed lower extremity edema for the past 2 to 3-weeks, which does not resolve overnight, and is new. The patient reports as times her feet hurt because of the swelling. No chest pain,discomfort, lightheadedness, dizziness, presyncope, or syncope. No change in her diet. The patient???s weight has been stable. The patient is not Crestor, which has been prescribed and encouraged. The patient is inquiring about continuing vitamin D, calcium, iron, and Vitamin C supplements. The patient reports she completed Vitamin D 50,000 international units weekly, and is inquiring about continuing Vitamin D, and at what dose. The patient is on ferrous sulfate 324 mg daily for anemia of unknown etiology. The patient recently had a normal Cologuard testing on 05/12/18. The patient has a history of rosacea and is requesting a prescription for clindamycin gel, which sheuses infrequently, and mostly in the summer. ROS: GENERAL: No fever, no chills. The patient's weight is stable. The patient continues to be affected by dreams and no longer sleeps with her because of them. INTEGUMENTARY: See HPI. The patient has a history of rosacea and is requesting a prescription for clindamycin gel, which she uses infrequently, and mostly in the summer. CARDIOVASCULAR: See HPI. The patient has noticed lower extremity edema for the past 2-3 weeks, whichdoes not resolve overnight. No chest pain, pressure, palpitations, lightheadedness, dizziness, presyncope, syncope, and/or cardiac murmurs. GASTROINTESTINAL: No nausea or vomiting. The patient has diarrhea which is not new. GENITOURINARY: See HPI. The patient has concerns she has a urinary tract infection with an intermittent burning, itching sensation when voiding for the past 2 to 3 weeks. No hematuria but possibly urinary frequency and urgency. ENDOCRINOLOGY: See HPI. The patient has a history of type 2 diabetes and is currently under the careof endocrinology. The following portions of the patient's chart were reviewed in this encounter and updated as appropriate: Tobacco Allergies Meds Problems Med Hx Surg Hx Fam Hx Objective Visit Vitals BP 134/70 (BP Location: Left arm, Patient Position: Sitting) Pulse 82 Temp 36.2 ??C (97.2 ??F) (Temporal) Resp 16 Ht 1.61 m (5' 3.39) Wt 82.7 kg (182 lb 5.1 oz) SpO2 97% BMI 31.90 kg/m?? Smoking Status Never Smoker BSA 1.92 m?? GENERAL: The patient is alert, orientated, and in no apparent distress. CARDIOVASCULAR: Normal heart rate and rhythm. No murmur. Swelling from her mid calve distally, pitting over the dorsal aspect of her feet. RESPIRATORY: Lungs are clear, bilaterally. No wheezing. GENITOURINARY: Slight suprapubic tenderness, no CVA tenderness. GASTROENTEROLOGY: Abdomen is soft, no organomegaly, positive bowel sounds. DIAGNOSTICS: Urinalysis: Glucose negative, bili negative, ketone negative, blood trace, nitrate negative, leukocyte moderate, and urine culture pending. Lab Results Component Value Date GLUCOSE 181 (H) 07/07/2018 CALCIUM 9.7 07/07/2018 NA 141 07/07/2018 K 4.2 07/07/2018 CO2 26 07/07/2018 CL 108 (H) 07/07/2018 BUN 22 07/07/2018 CREATININE 1.3 (H) 07/15/2018 Assessment/Plan Marcial was seen today for uti. Diagnoses and all orders for this visit: Lower extremity edema (Primary) - BNPNT; Future - Ambulatory External Referral - furosemide (LASIX) 20 MG tablet; Take 0.5 tablets (10 mg total) by mouth 1 (one) time each day Dysuria - Urine culture (clean catch); Future - Urinalysis with reflex microscopic (clean catch); Future Anemia, unspecified type - ferrous sulfate 325 (65 Fe) MG tablet; Take 1 tablet (325 mg total) by mouth 1 (one) time eachday with breakfast Rosacea - clindamycin (CLINDAGEL) 1 % gel; Apply topically 2 (two) times a day Discussed the plan of care with the patient. The patient's urinalysis has moderate leukocytes, urineculture pending, and the patient will be notified of the results and further plan of care. Renewed ferrous sulfate 325 mg daily x1 year for anemia of unknown etiology. Renewed clindamycin 1% gel for rosacea. The patient will be notified of her proBNP results, and with worsening renal failure, will delay starting a diuretic until the results have been reviewed. The patient should elevate her feet and consider compression stockings. The patient does have a cardiology appointment scheduled in 2 weeks. The patient was encouraged to start the Ozempic and Crestor. The patient should take Calcium 600 mg with Vitamin D 400 international units b.i.d. She can discontinue Vitamin C. The patient agrees and understands this plan of care. Adriane Patel APRN, CNP documented in this encounter Plan of Treatment Scheduled Referrals Name Type Priority Associated Order Schedule Diagnoses Ambulatory External Outpatient Referral Routine Lower extremit y Ordered: Referral edema 07/18/2018 documented as of this encounter Results (ABNORMAL) BNPNT (07/15/2018 5:05 PM CDT) athologist Signature BNP 267 (H) 5 - 125 07/16/2018 [facility] pg/mL 1:24 PM CDT [facility] Comment: [...] CNP LAB BLOOD ORDERABLES Performing Organization Address City/State/ZIP Code Phon e Number [facility] [address] [place] [address] Urine culture (clean catch) (07/15/2018 4:05 PM CDT) [facility] gist Method Time Signature Urine Culture <10,000 07/16/2018 [place] cfu/ml No 12:55 PM CDT [facility] further ID. LABORATORY Specimen Anatomical Collection Method Collection Time Receive d Time (Source) Location / / Volume Laterality Urine, Clean 07/15/2018 4:05 07/16/2018 C[place] PM CDT 12:35 PM CDT Narrative [facility] - 06/18 12:55 PM CDT Patient does not have an Amoxicillin or PCN allergy Adriane Patel APRN, DIRECTOR OF PRODUCT MANAGEMENT LAB MICROBIOLOGY - GENERA L ORDERABLES Performing Organization Address City/State/ZIP Code Phon e Number [facility] [address] [place] [address] (ABNORMAL) Urinalysis with reflex microscopic (clean catch) (07/15/2018 4:00 PM CDT) [facility] Method Time Signature Type CLEAN CATCH 07/15/2018 [facility] 4:16 PM CDT [place] Color, Urine STRAW YELLOW 07/15/2018 [facility] 4:16 PM CDT [place] Clarity, HAZY (A) CLEAR 07/15/2018 [facility] Urine 4:16 PM CDT [place] Glucose, NEGATIVE NEGATIVE 07/15/2018 [facility] Urine mg/dL 4:16 PM CDT [place] Bilirubin, NEGATIVE NEGATIVE 07/15/2018 [facility] Urine 4:16 PM CDT [place] Ketones, NEGATIVE NEGATIVE 07/15/2018 [facility] Urine mg/dL 4:16 PM CDT [place] Specific 1.020 1.000 07/15/2018 [facility] [place], ->=1.030 4:16 PM CDT [place] Urine Blood, Urine TRACE (A) NEGATIVE 07/15/2018 [facility] 4:16 PM CDT [place] pH, Urine 5.5 5.0 - 7.0 07/15/2018 [facility] 4:16 PM CDT [place] Protein, NEGATIVE NEGATIVE-TRA 07/15/2018 [facility] Urine CE mg/dL 4:16 PM CDT [place] Urobilinogen, 0.2 0.2 - 1.0 07/15/2018 [facility] Urine E.U./dL 4:16 PM CDT [place] Nitrite, NEGATIVE NEGATIVE 07/15/2018 [facility] Urine 4:16 PM CDT [place] Leukocytes, MODERATE (A) NEGATIVE 07/15/2018 [facility] Urine 4:16 PM CDT [place] Specimen Anatomical Collection Method Collection Time Receive d Time (Source) Location / / Volume Laterality Urine (Urine, 07/15/2018 4:00 07/15/2018 [place]) PM CDT 4:00 PM CDT Adriane Patel APRN, LEONARD LAB URINE ORDERABLES Performing Organization Address City/State/ZIP Code Phon e Number [facility] [place] [address] [place] [address] documented in this encounter Visit Diagnoses Diagnosis Lower extremity edema - Primary Edema Dysuria Anemia, unspecified type Rosacea Dysuria Lower extremity edema Edema documented in this encounter Care Teams Nuclear Medicine Specialist Relationship Specialty Start Date End Date Adriane Patel APRN, DIRECTOR OF PRODUCT MANAGEMENT PCP - General 09/22/17 07/06/19 100 [facility] [place] [address] documented as of this encounter
--- OUTSIDE RECORDS SUMMARY | 2021-09-05 00:14 | XMS_ITS | Encounter Summary ---
:1945 Author Organization [facility] Address [address] [place] [address] Care Team Providers Name Role Phone Ronak Patel EXTRA GANG SUPERVISOR, STREET CAR MECHANIC Primary Care Provider Reason for Visit Reason Comments Diabetes Encounter Details Date Type Department Care Team Description 12/01/2018 Office Visit [facility] End[facility]ology Bacilio Stewart, Type 2 diabetes mellitus wit h other specified complication, unspecified whether [place] [facility] insulin use (HCC) (Primary Dx); [address] [facility] MBBS Mixed hyperlipidemia; [place] [address] [address] [facility] Stage 3 chronic kidney disease (HCC); [phone] [place], [place] Essential hype rtension; [address] Type 2 diabetes mellitus with other spec ified complication, without long-term current use of insulin ([facility]) Social History [...] Sign Reading Time Taken Comments Blood Pressure 136/72 12/01/2018 9:07 AM CDT Pulse 79 12/01/2018 9:07 AM CDT Temperature 36.3 ??C (97.4 ??F) 12/01/2018 9:07 AM CDT Respiratory Rate 16 12/01/2018 9:07 AM CDT Oxygen Saturation 98% 12/01/2018 9:07 AM CDT Inhaled Oxygen Concentration - - Weight 83.6 kg (184 lb 4.9 oz) 12/01/2018 9:07 AM CDT Height 161 cm (5' 3.39) 12/01/2018 9:07 AM CDT Body Mass Index 32.25 12/01/2018 9:07 AM CDT documented in this encounter Progress Notes JOSE DE JESUS Austin - 12/01/2018 9:00 AM CDT Estab Patient Visit Patient: Marcial Adams 73 y.o. female 1945 Date of Service: 12/01/18 Reason for visit: Marcial Adams is a 73 y.o. female presenting for follow up of diabetes. History of presenting illness: Marcial Adams is accompanied by her today. She was last seenin 08/2018. She was diagnosed with diabetes in 2007. Patient has not been feeling well for the past couple of weeks. She has had cough, discharge from eyes and shortness of breath. No fever or chills. Labs work was pretty unremarkable last month. She wasprescribed amoxicillin and eye drops. She initially felt better but now is feeling worse again. She has appointment with her PCP scheduled today in the afternoon. Most recent a1c was 8% in 10/2018, down from 8.7% in 06/2018. Current diabetes regimen includes Glipizide 10 mg BID and Januvia 50 mg daily. She has also been on basal insulin, currently Glargine 13 units daily. Our nurses educator, Denny Potts, has been in touch with her and adjusting insulin dose. Metformin was not restarted due to borderline kidney function.She reports compliance with her diabetes regimen. Glucometer showed average 166 with SD 48, range 108-288. Morning sugars are usually in the good range but afternoon/evening sugars are sometimes higher. She usually checks 2-3 times a day. No recent episodes of hypoglycemia. She eats 3 meals/day and an afternoon snack. She states that sugars are pretty well controlled when she is careful with her diet. No smoking. Last eye exam showed no retinopathy in [place]. Denies any numbness or tingling sensation. No skin changes or diabetic foot ulcers. Noregular exercise these days. PM/SH: Past Medical History: [...] mentioned above. Physical Examination: Visit Vitals BP 136/72 Pulse 79 Temp 36.3 ??C (97.4 ??F) (Temporal) Resp 16 Ht 1.61 m (5' 3.39) Wt 83.6 kg (184 lb 4.9 oz) SpO2 98% BMI 32.25 kg/m?? Smoking Status Never Smoker BSA 1.93 m?? Constitutional: Appears well, NAD HEENT: AT/NC, EOMI, clear eye discharge bilaterally Respiratory: Unlabored breathing Neurological: AAOx3 Skin: No dry skin, normal hair distribution, no hyperpigmentation Psych: Normal mood, pleasant affect. Laboratory Work up: Reviewed Imaging: Reviewed Assessment and Plan: 1- Diabetes Mellitus type 2: Suboptimal control but overall improving. No hypoglycemia. - Continue with current dose of Glipizide and Januvia for now. - Increase insulin glargine dose to 15 units daily. She will remain in contact with diabetes education for continued insulin dose adjustment. - Patient was advised to continue to [...] the plan. More than 50% of this 25 minute visit was spent counseling the patient regarding evaluation and management of her endocrine problems and coordination of care. Bacilio Stewart MD Staff Bladder Cleaner Adriane Patel APRN, LEONARD - 12/01/2018 9:00 AM CDT Reviewed. documented in this encounter Plan of Treatment Not on filedocumented as of this encounter Results (ABNORMAL) Hemoglobin A1c (03/01/2019 11:39 AM ACROBATIC DANCER) Analysis Performed At [facility] Time Signature Hemoglobin A1C 8.8 (H) 4.0 - 5.6 03/02/2019 [facility] % A1C 1:45 PM [facility] Comment: Reference [...] Volume Laterality Blood 03/01/2019 11:39 03/02/2019 AM ACROBATIC DANCER 12:55 PM ACROBATIC DANCER Bacilio DELA CRUZ LAB BLOOD ORDERABLES Performing Organization Address City/State/ZIP Code Phon e Number [facility] [address] [place] [address] documented in this encounter Visit Diagnoses Diagnosis Type 2 diabetes mellitus with other spec ified complication, unspecified whether [facility] insulin use (HCC) - Primary Mixed hyperlipidemia Stage 3 chronic kidney disease (HCC) Essential hypertension Unspecified essential hypertension Type 2 diabetes mellitus with other spec ified complication, without long-term current use of insulin (HCC) documented in this encounter Care Teams Coupon Clerk Relationship Specialty Start Date End Date Adriane Patel APRN, STREET CAR MECHANIC PCP - General 09/22/17 07/06/[address] [place] [address] documented as of this encounter
--- OUTSIDE RECORDS SUMMARY | 2021-09-05 00:14 | XMS_ITS | Encounter Summary ---
:1945 Author Organization [facility] Address [address] [place] [address] Care Team Providers Name Role Phone Ronak Patel COOKER MEAL, VP CARDIOVASCULAR Primary Care Provider Encounter Details Date Type Department Care Team Description 10/29/2018 Lab [place] Dyspnea, unspecified type; [address] Type 2 diabetes mellitus wit h other specified complication, unspecified whether usp insulin use (HCC) [place], [place] [address] Social History Tobacco Use [...] Date/Time Associated Diagnosis Comme nts GLOMERULAR Routine 10/29/2018 11:40 Dyspnea, unspecified Res ults for this FILTRATION RATE AM CDT type procedure ar e in the results section. CBC BRANCH OFFICE Routine 10/29/2018 11:40 Dyspnea, unspecifie d Results for this W/DIFF AM CDT type procedure are i n the results section. N-TERMINAL PROBNP Routine 10/29/2018 11:40 Dyspnea, unspecifie d Results for this AM CDT type procedure are i n the results section. HEMOGLOBIN A1C Routine 10/29/2018 11:40 Type 2 diabetes Result s for this AM CDT mellitus with other procedur e are in specified the results complication, section. unspecified whether usp insulin use (HCC) LIPID PANEL Routine 10/29/2018 11:40 Dyspnea, unspecified Res ults for this AM CDT type procedure are i n the results section. BASIC METABOLIC Routine 10/29/2018 11:40 Dyspnea, unspecified Results for this PANEL AM CDT type procedure are i n the results section. documented in this encounter Results (ABNORMAL) Glomerular filtration rate (GFR) (10/29/2018 11:40 AM CDT) athologist Signature GFR 40 (A) 10/29/2018 [facility] 12:04 PM [facility] 49 (A) 10/29/2018 [facility] Greek GFR 12:04 PM [facility] Comment: GFR calculated from serum creatinine v alue Chronic Kidney Disease less than 60 mL/m in/1.73 m2 Kidney Failure less than 15 mL/min/1.73 m2 Note: effective 07/01/06 IDMS-Traceable MDRD Study Equation used. Specimen Anatomical Collection Method Collection Time Receive d Time (Source) Location / / Volume Laterality 10/29/2018 11:40 10/29/2018 AM CDT 11:40 AM CDT Adriane Patel COOKER MEAL, VP CARDIOVASCULAR LAB BLOOD ORDERABLES Performing Organization Address City/State/ZIP Code Phon e Number [facility] [address] [place] [address] (ABNORMAL) Hemoglobin A1c (10/29/2018 11:40 AM CDT) Analysis Performed At Patho logist Time Signature Hemoglobin A1C 8.0 (H) 4.0 - 5.6 10/29/2018 [place] % A1C 7:20 PM [facility] Comment: Reference Range 4.0-5.6% [...] 10/29/2018 AM CDT 6:21 PM CDT Bacilio SETHIBS LAB BLOOD ORDERABLES Performing Organization Address City/State/ZIP Code Phon e Number [facility] [address] [place] [address] (ABNORMAL) CBC Branch Off w/Diff (10/29/2018 11:40 AM CDT) [facility] gist Method Time Signature WBC 5.7 3.5 - 10.5 10/29/2018 [facility] K/uL 12:04 PM CDT [place] RBC 3.74 (L) 3.90 - 10/29/2018 [facility] 5.00 M/uL 12:04 PM CDT [place] Hemoglobin 11.0 (L) 12.0 - 10/29/2018 [facility] 15.5 g/dL 12:04 PM CDT [place] Hematocrit 33.8 (L) 35.0 - 10/29/2018 [facility] 44.0 % 12:04 PM CDT [place] Platelets 174 150 - 450 10/29/2018 [facility] K/uL 12:04 PM CDT [place] MCV 90.4 81.6 - 10/29/2018 [facility] 98.3 fL 12:04 PM CDT [place] MCH 29.4 26.0 - 10/29/2018 [facility] 32.0 pg 12:04 PM CDT [place] MCHC 32.5 32.0 - 10/29/2018 [facility] 36.0 g/dL 12:04 PM CDT [place] RDW 12.8 11.9 - 10/29/2018 [facility] 15.5 % 12:04 PM CDT [place] Lymphocytes % 22.0 18.0 - 10/29/2018 [facility] 45.0 % 12:04 PM CDT [place] Mid-size Cells 7.0 3.3 - 10.1 10/29/2018 [facility] % 12:04 PM CDT [place] Granulocytes/Jean Claude 71.0 45.8 - 10/29/2018 [facility] trophils 73.7 % 12:04 PM CDT [place] Lymphocytes 1.3 0.9 - 2.9 10/29/2018 [facility] Absolute K/uL 12:04 PM CDT [place] MIDS Absolute 0.4 0.2 - 0.8 10/29/2018 [facility] K/uL 12:04 PM CDT [place] Granulocytes/Jean Claude 4.0 2.1 - 8.7 10/29/2018 [facility] trophils K/uL 12:04 PM CDT [place] Absolute Specimen Anatomical Collection Method Collection Time Receive d Time (Source) Location / / Volume Laterality Blood (Blood, 10/29/2018 11:40 10/29/2018 Venous) AM CDT 12:01 PM CDT Adriane Patel APRN, VP CARDIOVASCULAR LAB BLOOD ORDERABLES Performing Organization Address City/State/ZIP Code Phon e Number [facility] [place] [address] [place] [address] (ABNORMAL) Lipid panel (10/29/2018 11:40 AM CDT) athologist Signature Cholesterol 243 (A) 0 - 199 10/29/2018 [facility] mg/dL 6:49 PM CDT [facility] Comment: Recommended by National Cholesterol Education Program (ATP III) -------- Cholesterol Ranges -------- <200 ? Desirable 200-239 ? Borderline high >=240 ? High Triglycerides 340 (A) 0 - 149 mg/dL 10/29/2018 6:49 PM CDT [facility] Comment: -------- TRIG Ranges -------- <150 ?Normal 150-199 ? Borderline high 200-499 ? High >=500 ? Very high HDL 36 (A) 40 - 60 mg/dL 10/29/2018 6:[address] [facility] Comment: -------- HDL Ranges -------- <40 ?Low 40-59 ?Normal >=60 ? Optimal LDL Calculated 139 (A) 0 - 99 mg/dL 10/29/2018 6:49 PM CDT [facility] Comment: -------- LDL Ranges -------- <100 ? Optimal 100-129 ?Near optimal/above op timal 130-159 ?Borderline high 160-189 ?High >=190 ?Very high Specimen Anatomical Collection Method Collection Time Receive d Time (Source) Location / / Volume Laterality Blood (Blood, 10/29/2018 11:40 10/29/2018 Venous) AM CDT 6:21 PM CDT Adriane Patel APRN, VP CARDIOVASCULAR LAB BLOOD ORDERABLES Performing Organization Address City/State/ZIP Code Phon e Number [facility] [address] [place] [address] (ABNORMAL) BNPNT (10/29/2018 11:40 AM CDT) P athologist Signature BNP 258 (H) 5 - 125 10/29/2018 [facility] pg/mL 7:09 PM CDT [facility] Comment: [...] CDT 6:21 PM CDT Adriane Patel APRN, VP CARDIOVASCULAR LAB BLOOD ORDERABLES Performing Organization Address City/State/ZIP Code Phon e Number [facility] [address] [place] [id number] (ABNORMAL) Basic metabolic panel (10/29/2018 11:40 AM CDT) P athologist Signature Sodium 139 135 - 145 10/29/2018 [facility] mmol/L 12:04 PM CDT [place] Potassium 4.1 3.5 - 5.1 10/29/2018 [facility] mmol/L 12:04 PM CDT [place] Comment: . Chloride 100 98 - 107 mmol/L 10/29/2018 12:04 PM CDT [facility] [place] Comment: . CO2 27 22 - 29 mmol/L 10/29/2018 12:04 PM CDT [facility] [place] Comment: . Creatinine 1.3 (H) 0.4 - 1.2 mg/dL 10/29/2018 12:04 PM CDT [facility] [place] Comment: . BUN 20 5 - 25 mg/dL 10/29/2018 12:04 PM CDT [facility] [place] Comment: . Glucose 180 (H) 70 - 100 mg/dL 10/29/2018 12:04 PM [facility] [place] CDT Calcium, Total,S 9.5 8.4 - 10.2 mg/dL 10/29/2018 12:04 PM [facility] CDT Comment: . Fasting? No 10/29/2018 12:02 PM CDT [facility] [place] Comment: 1+ lipemic Specimen Anatomical Collection Method Collection Time Receive d Time (Source) Location / / Volume Laterality Blood (Blood, 10/29/2018 11:40 10/29/2018 Venous) AM CDT 12:01 PM CDT Adriane Patel APRN, VP CARDIOVASCULAR LAB BLOOD ORDERABLES Performing Organization Address City/State/ZIP Code Phon e Number [facility] [place] [address] [place] [address] documented in this encounter Visit Diagnoses Diagnosis Dyspnea, unspecified type Type 2 diabetes mellitus with other spec ified complication, unspecified whether continuous churn buttermaker insulin use (HCC) documented in this encounter Care Teams Dye Room Helper Relationship Specialty Start Date End Date Adriane Patel APRN, VP CARDIOVASCULAR PCP - General 09/22/17 07/06/19 100 [facility] [place] [address] documented as of this encounter
--- OUTSIDE RECORDS SUMMARY | 2021-09-05 00:15 | XMS_ITS | Encounter Summary ---
:1945 Author Organization [facility] Address [address] [place] [address] Care Team Providers Name Role Phone Ronak Patel BACK WINDER, EMPLOYEE RELATIONS CONSULTANT Primary Care Provider Encounter Details Date Type Department Care Team Description 04/27/2018 Lab [place] Dysuria [address] [place], [place] [address] Social History Tobacco Use [...] Procedure Name Priority Date/Time Associated Comments Diagnosis URINALYSIS-MICROSCOPI Routine 04/27/2018 3:22 Dysuria Re sults for this C EXAM (REFLEXED) PM CDT procedure are in the results section. URINALYSIS WITH Routine 04/27/2018 3:22 Dysuria Results for this REFLEX MICROSCOPIC PM CDT procedure are in the results section. documented in this encounter Results (ABNORMAL) Urinalysis-Microscopic Exam (04/27/2018 3:22 PM CDT) [facility] Method Time Signature Casts, urine NONE SEEN 0-2 Hyaline 04/27/2018 [facility] /lpf 3:40 PM CDT [place] Significant NONE SEEN None Seen 04/27/2018 [facility] casts, urine /lpf 3:40 PM CDT [place] RBC, Urine 4-10 (A) 0 - 3 /hpf 04/27/2018 [facility] 3:40 PM CDT [place] WBC, Urine 4-10 /hpf 04/27/2018 [facility] 3:40 PM CDT [place] Comment: Male Ref Range ? 0-3/hpf Female Ref Range ?? 0-10/hpf Squamous Epithelial, FEW Few /lpf 04/27/2018 3:40 PM [facility] [place] Urine CDT Trans Epithelial, NONE SEEN 0 - 3 /hpf 04/27/2018 3:40 PM [facility] [place] Urine CDT Renal Tubular Cells, NONE SEEN 0 - 1 /hpf 04/27/2018 3:40 P M [facility] [place] Urine CDT Bacteria, Urine 1+ (A) None Seen /hpf 04/27/2018 3:40 PM [facility] [place] CDT Specimen Anatomical Collection Method Collection Time Receive d Time (Source) Location / / Volume Laterality 04/27/2018 3:22 04/27/2018 PM CDT 3:22 PM CDT Sanam Darnell BACK WINDER, EMPLOYEE RELATIONS CONSULTANT LAB URINE ORDERABLES Performing Organization Address City/State/ZIP Code Phon e Number [facility] [place] [address] [place] [address] (ABNORMAL) Urinalysis with reflex microscopic (clean catch) (04/27/2018 3:22 PM CDT) [facility] Method Time Signature Type CLEAN CATCH 04/27/2018 [facility] 3:39 PM CDT [place] Color, Urine STRAW YELLOW 04/27/2018 [facility] 3:39 PM CDT [place] Clarity, CLEAR CLEAR 04/27/2018 [facility] Urine 3:39 PM CDT [place] Glucose, NEGATIVE NEGATIVE 04/27/2018 [facility] Urine mg/dL 3:39 PM CDT [place] Bilirubin, NEGATIVE NEGATIVE 04/27/2018 [facility] Urine 3:39 PM CDT [place] Ketones, NEGATIVE NEGATIVE 04/27/2018 [facility] Urine mg/dL 3:39 PM CDT [place] Specific 1.025 1.000 04/27/2018 [facility] [place], ->=1.030 3:39 PM CDT [place] Urine Blood, Urine NEGATIVE NEGATIVE 04/27/2018 [facility] 3:39 PM CDT [place] pH, Urine 5.0 5.0 - 7.0 04/27/2018 [facility] 3:39 PM CDT [place] Protein, NEGATIVE NEGATIVE-TRA 04/27/2018 [facility] Urine CE mg/dL 3:39 PM CDT [place] Urobilinogen, 0.2 0.2 - 1.0 04/27/2018 [facility] Urine E.U./dL 3:39 PM CDT [place] Nitrite, NEGATIVE NEGATIVE 04/27/2018 [facility] Urine 3:39 PM CDT [place] Leukocytes, MODERATE (A) NEGATIVE 04/27/2018 [facility] Urine 3:39 PM CDT [place] Specimen Anatomical Collection Method Collection Time Receive d Time (Source) Location / / Volume Laterality Urine (Urine, 04/27/2018 3:22 04/27/2018 Clean Catch) PM CDT 3:22 PM CDT Sanam Darnell APRN, EMPLOYEE RELATIONS CONSULTANT LAB URINE ORDERABLES Performing Organization Address City/State/ZIP Code Phon e Number [facility] [place] [address] [place] [address] documented in this encounter Visit Diagnoses Diagnosis Dysuria documented in this encounter Care Teams Pot Fireman Relationship Specialty Start Date End Date Adriane Patel APRN, EMPLOYEE RELATIONS CONSULTANT PCP - General 09/22/17 07/06/19 100 [facility] [place] [address] documented as of this encounter
--- OUTSIDE RECORDS SUMMARY | 2021-09-05 00:15 | XMS_ITS | Encounter Summary ---
:1945 Author Organization [facility] Address [address] [place] [address] Care Team Providers Name Role Phone Ronak Patel PRACTICE ASSISTANT, RUBBER STAMPS AND DIES SUPERVISOR Primary Care Provider Reason for Visit Reason Onset Date Comments LAB RESULT QUESTIONS 05/03/2018 Encounter Details Date Type Department Care Team Description 05/03/2018 Telephone [place] Adriane Patel, LAB RESULT QUESTIONS [address] PRACTICE ASSISTANT, RUBBER STAMPS AND DIES SUPERVISOR [place], [place] [address] [phone] [place], [place] [address] Social History Tobacco Use [...] this encounter Miscellaneous Notes Telephone Encounter - Ana Cristina Prado MA - 05/12/2018 1:04 PM CDT Patient informed Telephone Encounter - Adriane Patel APRN, CNP - 05/12/2018 12:46 PM CDT These are too high, and she has been on the medication for 2 weeks. Lets have continue for an additional 2 weeks, continue to monitor and recheck a HGB A1c, and if not decreasing we will have to consider other options. Order for the HGB A1c has been placed. Thanks, Suresh Telephone Encounter - Margareth Sanchez RN - 05/12/2018 12:37 PM CDT Patient reports since starting the Januvia she thinks she's still running high at 150-180. Patient reports at night they range from 250-315. Patient doesn't think her numbers have gone down to much. She questions if 3 months is too long to wait to do an A1C. Please advise on blood sugars. Telephone Encounter - Adriane Patel APRN, CNP - 05/12/2018 11:18 AM CDT Please contact the patient to determine how her blood sugars are running now. To improve lymphocytes, the patient can increase fruits vegetables, exercise, maintain a health weight. The patient can increase RBC's by eating red meat, green leafy vegetables, dried fruit, beans, legumes, and egg yolks. Tell to get out and enjoy this weather, walk! Suresh Telephone Encounter - Ana Cristina Prado MA - 05/04/2018 10:06 AM CDT Patient states her average at night for blood sugar is 239 in the morning it is around 140. Patient has been on Januvia since 03/07/19. Patient is wondering how she can improve her RBC and Lymphocytes numbers as the letter says its low. Please advise Telephone Encounter - Phoebe Donohue - 05/04/2018 9:50 AM CDT Patient returned call. Telephone Encounter - Lana Knight LPN - 05/03/2018 2:55 PM CDT Called patient and was not home. Telephone Encounter - Luciana Albarado - 05/03/2018 1:22 PM CDT Pt called stating she has some questions regariding her lab results from 04/23/18. Please call Pt in the later afternoon, as she will be out earlier this afternoon. documented in this encounter Plan of Treatment Not on filedocumented as of this encounter Visit Diagnoses Not on filedocumented in this encounter Care Teams Writer Relationship Specialty Start Date End Date Adriane Patel, PRACTICE ASSISTANT, RUBBER STAMPS AND DIES SUPERVISOR PCP - General 09/22/17 07/06/19 100 [place] [address] documented as of this encounter
--- OUTSIDE RECORDS SUMMARY | 2021-09-05 00:15 | XMS_ITS | Encounter Summary ---
:1945 Author Organization [facility] Address [address] [place] [address] Care Team Providers Name Role Phone Ronak Patel TOP TAPER MACHINE, ORACLE EBS CONSULTANT Primary Care Provider Reason for Visit Reason Comments Med Refill Encounter Details Date Type Department Care Team Description 06/30/2018 Refill [place] PatelAdriane, Type 2 diabetes [address] TOP TAPER MACHINE, ORACLE EBS CONSULTANT mellitus with other [place], [place] [address] specified complication, [place], [place] [address] without long-term current use of insulin (HCC) (Primary Dx) Social History Tobacco Use Types [...] encounter Miscellaneous Notes Telephone Encounter - Sumaya Mckoy LPN - 06/30/2018 2:20 PM CDT Dx last reviewed 04/27/2018 by Sanam Darnell NP No follow up appointment scheduled BP Readings from Last 2 Encounters: 04/27/18 130/80 04/22/18 122/80 Albumin, Serum Date Value Ref Range Status 04/01/2018 4.3 3.5 - 5.0 g/dL Final Creatinine Date Value Ref Range Status 04/22/2018 1.1 0.4 - 1.2 mg/dL Final Comment: Cholesterol Date Value Ref Range Status 02/24/2017 221 (A) 0 - 199 mg/dL Final LDL Calculated Date Value Ref Range Status 02/24/2017 115 (A) 0 - 99 mg/dL Final HDL Date Value Ref Range Status 02/24/2017 44 40 - 60 mg/dL Final Triglycerides Date Value Ref Range Status 02/24/2017 308 (A) 0 - 149 mg/dL Final Hemoglobin A1C Date Value Ref Range Status 06/24/2018 8.5 (H) 4.0 - 5.6 % A1C Final documented in this encounter Plan of Treatment Not on filedocumented as of this encounter Visit Diagnoses Diagnosis Type 2 diabetes mellitus with other spec ified complication, without long-term current use of insulin (HCC) - Primary documented in this encounter Care Teams Plate Glass Installer Helper Relationship Specialty Start Date End Date Adriane Patel, TOP TAPER MACHINE, ORACLE EBS CONSULTANT PCP - General 09/22/17 07/06/19 100 [facility] [place] [address] documented as of this encounter
--- OUTSIDE RECORDS SUMMARY | 2021-09-05 00:15 | XMS_ITS | Encounter Summary ---
:1945 Author Organization [facility] Address [address] [place] [address] Care Team Providers Name Role Phone Ronak Patel PLANTING MACHINE OPERATOR, BIOLOGICAL SCIENTIST Primary Care Provider Encounter Details Date Type Department Care Team Description 04/01/2018 Lab [place] Weak urinary stream [address] [place], [place] [address] Social History Tobacco Use [...] or relatives? How often do you attend taoist or More than 4 times per year 12/23/2018 pentecostal services? Do you belong to any clubs or No 12/23/2018 organizations such as taoist groups, unions, fraternal or athletic groups, or [...] Procedure Name Priority Date/Time Associated Comments Diagnosis URINALYSIS-MICROSCOPIC Routine 04/01/2018 11:39 Weak urinary s tream Results for this EXAM (REFLEXED) AM PICKER/PULLER procedure ar e in the results section. URINALYSIS WITH REFLEX Routine 04/01/2018 11:39 Weak urinary s tream Results for this MICROSCOPIC AM PICKER/PULLER procedure are i n the results section. URINE CULTURE Routine 04/01/2018 11:39 Weak urinary stream Res ults for this AM PICKER/PULLER procedure are i n the results section. GLOMERULAR FILTRATION Routine 04/01/2018 11:32 Re sults for this RATE AM PICKER/PULLER procedure are i n the results section. CBC BRANCH OFFICE Routine 04/01/2018 11:32 Result s for this W/DIFF AM PICKER/PULLER procedure are i n the results section. CREATININE, SERUM Routine 04/01/2018 11:32 Result s for this AM PICKER/PULLER procedure are i n the results section. SEDIMENTATION RATE, Routine 04/01/2018 11:32 Resu lts for this AUTOMATED AM PICKER/PULLER procedure are i n the results section. C-REACTIVE PROTEIN Routine 04/01/2018 11:32 Resul ts for this AM PICKER/PULLER procedure are i n the results section. ALT Routine 04/01/2018 11:32 Results for this AM PICKER/PULLER procedure are i n the results section. AST Routine 04/01/2018 11:32 Results for this AM PICKER/PULLER procedure are i n the results section. ALBUMIN Routine 04/01/2018 11:32 Results for this AM PICKER/PULLER procedure are i n the results section. documented in this encounter Results (ABNORMAL) Urine culture (clean catch) (04/01/2018 11:39 AM PICKER/PULLER) [facility] Method Time Signature Urine Culture Escherichia coli 04/03/2018 [place] >100,000 cfu/ml 8:14 AM PICKER/PULLER [facility] Specimen Anatomical Collection Method Collection Time Receive d Time (Source) Location / / Volume Laterality Urine, Clean 04/01/2018 11:39 04/02/2018 Catch AM PICKER/PULLER 12:50 PM PICKER/PULLER Narrative [facility] - 03/19 8:14 AM PICKER/PULLER Patient does not have an Amoxicillin or PCN allergy Organism Antibiotic Method Susceptibility Escherichia coli Ampicillin <=8 mcg/mL: [place]alee ceptible Escherichia coli Ampicillin/Sulbactam <=4/2 mcg/ mL: Susceptible Escherichia coli Cefazolin <=2 mcg/mL: [place]e ceptible Escherichia coli Ciprofloxacin <=1 mcg/mL: [place] ceptible Escherichia coli Gentamicin <=4 mcg/mL: [place] ceptible Escherichia coli Levofloxacin <=2 mcg/mL: [place] ceptible Escherichia coli Nitrofurantoin <=32 mcg/mL: [place] sceptible Escherichia coli Tetracycline <=4 mcg/mL: [place] ceptible Escherichia coli Trimeth/Sulfa <=2/38 mcg/mL: Susceptible Adriane Patel APRN, CNP LAB MICROBIOLOGY - GENERA L ORDERABLES Performing Organization Address City/State/ZIP Code Phon e Number [facility] [address] [place] [address] (ABNORMAL) Urinalysis-Microscopic Exam (04/01/2018 11:39 AM PICKER/PULLER) [facility] Method Time Signature Casts, urine NONE SEEN 0-2 Hyaline 04/01/2018 [facility] [place] /lpf 12:56 PM [place] [place] Significant NONE SEEN None Seen 04/01/2018 [facility] [place] casts, urine /lpf 12:56 PM [place] RBC, Urine 0-3 0 - 3 /hpf 04/01/2018 [facility] [place] 12:56 PM [place] WBC, Urine 11-20 (A) /hpf 04/01/2018 [facility] [place] 12:56 PM [place] Comment: Male Ref Range ? 0-3/hpf Female Ref Range ?? 0-10/hpf Squamous Epithelial, 1+ (A) Few /lpf 04/01/2018 12:56 PM [facility] [place] Urine PICKER/P[place]ER Trans Epithelial, NONE SEEN 0 - 3 /hpf 04/01/2018 12:56 PM O [place] Urine [facility]ICKER/PULLER Renal Tubular Cells, NONE SEEN 0 - 1 /hpf 04/01/2018 12:56 P M [facility] [place] Urine [facility]/P[place]ER Bacteria, Urine 1+ (A) None Seen /hpf 04/01/2018 12:56 PM [facility] [place] PICK[facility]/P[facility] Specimen Anatomical Collection Method Collection Time Receive d Time (Source) Location / / Volume Laterality 04/01/2018 11:39 04/01/2018 AM PICKER/PULLER 11:40 AM PICKER/PULLER Adriane Patel APRN, CNP LAB URINE ORDERABLES Performing Organization Address City/[facility]/ZIP Code Phon e Number [facility] [place] [address] [place] [address] (ABNORMAL) Urinalysis with reflex microscopic (clean catch) (04/01/2018 11:39 AM PICKER/PULLER) [facility] Method Time Signature Type COLLECTION HAT 04/01/2018 [facility] [place] 11:52 AM [place] PICKER/PULLER Color, Urine STRAW YELLOW 04/01/2018 [facility] [place] 11:52 AM [place] [facility] Clarity, HAZY (A) CLEAR 04/01/2018 [facility] [place] Urine 11:52 AM [place] [facility]ICKER/PULLER Glucose, 100 (A) NEGATIVE 04/01/2018 [facility] [place] Urine mg/dL 11:52 AM [place] PICKER/PULLER Bilirubin, NEGATIVE NEGATIVE 04/01/2018 [facility] [place] Urine 11:52 AM [place] PICKER/PULLER Ketones, NEGATIVE NEGATIVE 04/01/2018 [facility] [place] Urine mg/dL 11:52 AM [place] PICKER/PULLER Specific 1.020 1.000 04/01/2018 [facility] [place], ->=1.030 11:52 AM [place] Urine PICKER/PULLER Blood, Urine NEGATIVE NEGATIVE 04/01/2018 [facility] [place] 11:52 AM [place] PICKER/PULLER pH, Urine 5.0 5.0 - 7.0 04/01/2018 [facility] [place] 11:52 AM [place] PICKER/PULLER Protein, NEGATIVE NEGATIVE-TRA 04/01/2018 [facility] [place] Urine CE mg/dL 11:52 AM [place] PICKER/PULLER Urobilinogen, 0.2 0.2 - 1.0 04/01/2018 [facility] [place] Urine E.U./dL 11:52 AM [place] [facility]ICKER/PULLER Nitrite, NEGATIVE NEGATIVE 04/01/2018 [facility] [place] Urine 11:52 AM [place] PICKER/PULLER Leukocytes, MODERATE (A) NEGATIVE 04/01/2018 [facility] [place] Urine 11:52 AM [place] PICKER/PULLER Specimen Anatomical Collection Method Collection Time Receive d Time (Source) Location / / Volume Laterality Urine (Urine, 04/01/2018 11:39 04/01/2018 Clean Catch) AM PICKER/PULLER 11:40 AM PICKER/PULLER Adriane Patel APRN, BIOLOGICAL SCIENTIST LAB URINE ORDERABLES Performing Organization Address City/State/ZIP Code Phon e Number [facility] [place] [address] [place] [address] (ABNORMAL) Glomerular filtration rate (GFR) (04/01/2018 11:32 AM PICKER/PULLER) P athologist Signature GFR 44 (A) 04/02/2018 [facility] 2:25 PM [facility]ENTER [facility] 53 (A) 04/02/2018 [facility] [place] GFR 2:25 PM [facility] Comment: GFR calculated from serum creatinine v alue Chronic Kidney Disease less than 60 mL/m in/1.73 m2 Kidney Failure less than 15 mL/min/1.73 m2 Note: effective 07/01/06 IDMS-Traceable MDRD Study Equation used. Specimen Anatomical Collection Method Collection Time Receive d Time (Source) Location / / Volume Laterality 04/01/2018 11:32 04/01/2018 AM PICKER/PULLER 11:32 AM PICKER/PULLER Narrative [facility] - 03/19 2:25 PM PICKER/PULLER Called to CALL CANCELLED - RESULTS FAXED , , 14:29 04/01/[address] Carl Prado [facility] Rheumatology Fax Phone Outside Referring Lab Provider LAB BLOOD ORDERABLES Performing Organization Address City/State/ZIP Code Phon e Number [facility] [address] [place] [phone] (ABNORMAL) CBC Branch Off w/Diff (04/01/2018 11:32 AM PICKER/PULLER) [facility] gist Method Time Signature WBC 6.6 3.5 - 10.5 04/01/2018 [facility] K/uL 11:51 AM [place] RBC 3.82 (L) 3.90 - 04/01/2018 [facility] 5.00 M/uL 11:51 AM [place] Hemoglobin 11.3 (L) 12.0 - 04/01/2018 [facility] 15.5 g/dL 11:51 AM [place] Hematocrit 34.5 (L) 35.0 - 04/01/2018 [facility] [place] 44.0 % 11:51 AM [facility] [place] Platelets 208 150 - 450 04/01/2018 [facility] K/uL 11:51 AM [facility] [place] MCV 90.3 81.6 - 04/01/2018 [facility] 98.3 fL 11:51 AM [place] MCH 29.6 26.0 - 04/01/2018 [facility] 32.0 pg 11:51 AM [place] MCHC 32.8 32.0 - 04/01/2018 [facility] 36.0 g/dL 11:51 AM [place] RDW 13.0 11.9 - 04/01/2018 [facility] 15.5 % 11:51 AM [place] Lymphocytes % 17.3 (L) 18.0 - 04/01/2018 [facility] 45.0 % 11:51 AM [place] Mid-size Cells 12.7 (H) 3.3 - 10.1 04/01/2018 [facility] [place] % 11:51 AM [place] Granulocytes/Jean Claude 70.0 45.8 - 04/01/2018 [facility] trophils 73.7 % 11:51 AM [place] Lymphocytes 1.1 0.9 - 2.9 04/01/2018 [facility] [place] Absolute K/uL 11:51 AM [place] MIDS Absolute 0.8 0.2 - 0.8 04/01/2018 [facility] K/uL 11:51 AM [place] Granulocytes/Jean Claude 4.7 2.1 - 8.7 04/01/2018 [facility] [place] trophils K/uL 11:51 AM [place] Absolute Specimen Anatomical Collection Method Collection Time Receive d Time (Source) Location / / Volume Laterality 04/01/2018 11:32 04/01/2018 AM [facility]ICK[facility]/PULLER 11:32 AM PICKER/PULLER Narrative [facility] [place] - 04/01/2018 11:[address] Carl [facility] Rheumatology Fax Phone Outside Referring Lab Provider LAB BLOOD ORDERABLES Performing Organization Address City/State/ZIP Code Phon e Number [facility] [place] [address] [place] [address] AST (04/01/2018 11:32 AM PICKER/PULLER) P athologist Signature AST 24 8 - 43 U/L 04/02/2018 [facility] 2:25 PM [facility] Specimen Anatomical Collection Method Collection Time Receive d Time (Source) Location / / Volume Laterality 04/01/2018 11:32 04/02/2018 AM [facility] 12:27 PM PICKER/PULLER Narrative [facility] - 03/19 2:25 PM PICKER/PULLER Called to CALL CANCELLED - RESULTS FAXED , , 14:29 04/01/[address] Carl [place] Rheumatology Fax Phone Outside Referring Lab Provider LAB BLOOD ORDERABLES Performing Organization Address City/State/ZIP Code Phon e Number [facility] [address] [place] [phone] (ABNORMAL) C-reactive protein (04/01/2018 11:32 AM PICKER/PULLER) [facility] CRP 21.0 (H) 0.0 - 9.9 04/02/2018 [facility] mg/L 2:25 PM [facility] Comment: . Specimen Anatomical Collection Method Collection Time Receive d Time (Source) Location / / Volume Laterality 04/01/2018 11:32 04/02/2018 AM [facility]ICK[facility]/PULLER 12:28 PM PICKER/PULLER [facility]ORATORY - 03/19 2:25 PM PICKER/PULLER Called to CALL CANCELLED - RESULTS FAXED , , 14:29 04/01/[address] Carl Angeles Rheumatology Fax Phone Outside Referring Lab Provider LAB BLOOD ORDERABLES Performing Organization Address City/[facility] e Number [facility] [address] [place] [phone] Creatinine, Serum (04/01/2018 11:32 AM PICKER/PULLER) [facility] Creatinine 1.2 0.4 - 1.2 04/02/2018 [facility] mg/dL 2:25 PM [facility] Specimen Anatomical Collection Method Collection Time Receive d Time (Source) Location / / Volume Laterality 04/01/2018 11:32 04/02/2018 AM [facility]ICKER/PULLER 12:27 PM PICKER/PULLER [facility]ORATORY - 03/19 2:25 PM PICKER/PULLER Called to CALL CANCELLED - RESULTS FAXED , , 14:29 04/01/[address] Carl [facility] Rheumatology Fax Phone Outside Referring Lab Provider LAB BLOOD ORDERABLES Performing Organization Address City/[facility]/ZIP [facility] Phon e Number [facility] [address] [place] [phone] ALT (04/01/2018 11:32 AM P[facility]PULLER) [facility] ([facility] 28 0 - 34 U/L 04/02/2018 [facility] 2:25 PM [facility] Comment: NOTE: Normal range change effective 01/17 Specimen Anatomical Collection Method Collection Time Receive d Time (Source) Location / / Volume Laterality 04/01/2018 11:32 04/02/2018 AM PICKER/PULLER 12:27 PM PICKER/PULLER [facility]AT[facility] - 03/19 2:25 PM PICKER/PULLER Called to CALL CANCELLED - RESULTS FAXED , , 14:29 04/01/[address] Carl [facility] Rheumatology Fax Phone Outside Referring Lab Provider LAB BLOOD ORDERABLES Performing Organization Address City/State/ZIP Code Phon e Number [facility] [address] [place] [address] Albumin (04/01/2018 11:32 AM PICKER/PULLER) P athologist Signature Albumin, Serum 4.3 3.5 - 5.0 [facility] Specimen Anatomical Collection Method Collection Time Receive d Time (Source) Location / / Volume Laterality 04/01/2018 11:32 04/02/2018 AM [facility]/PULLER 12:27 PM PICKER/PULLER [facility] LABORATORY - 03/19 2:25 PM PICKER/PULLER Called to CALL CANCELLED - RESULTS FAXED , , 14:29 04/01/[address] Carl Angeles Rheumatology Fax Phone Outside Referring Lab Provider LAB BLOOD ORDERABLES Performing Organization Address City/[facility]/ZIP Code Phon e Number [facility] [address] [place] [phone] (ABNORMAL) ESR-Sed rate (04/01/2018 11:32 AM PICKER/PULLER) P athologist Signature Sed Rate 67 (H) 0 - 29 04/02/2018 [facility] mm/hr 1:30 PM [facility] Specimen Anatomical Collection Method Collection Time Receive d Time (Source) Location / / Volume Laterality 04/01/2018 11:32 04/02/2018 AM [facility] 12:25 PM PICKER/PULLER [facility] LABORATORY - 03/19 1:30 PM PICKER/PULLER Called to CALL CANCELLED - RESULTS FAXED , , 14:29 04/01/[address] Carl Prado [facility] Rheumatology Fax Phone Outside Referring Lab Provider LAB BLOOD ORDERABLES Performing Organization Address City/State/ZIP Code Phon e Number [facility] [address] [place] [address] documented in this encounter Visit Diagnoses Diagnosis Weak urinary stream Slowing of urinary stream documented in this encounter Care Teams Load Tester Relationship Specialty Start Date End Date Adriane Patel APRN, BIOLOGICAL SCIENTIST PCP - General 09/22/17 07/06/[address] [place] [phone] documented as of this encounter
--- OUTSIDE RECORDS SUMMARY | 2021-09-05 00:15 | XMS_ITS | Encounter Summary ---
:1945 Author Organization [facility] Address [address] [place] [address] Care Team Providers Name Role Phone Ronak Patel KETTLE ROOM HELPER, AIRCRAFT FUELER Primary Care Provider Encounter Details Date Type Department Care Team Description 04/22/2018 Lab [place] Type 2 diabetes mellitus wit h complication, without long-term current use of insulin (HCC); [address] Dyspnea on exertion; [place], [place] [address] Subclinical hypothyroidism; [phone] Type 2 diabetes mellitus with other specified complication, without long-term current use of insulin (HCC) Social [...] Date/Time Associated Diagnosis Comme nts GLOMERULAR Routine 04/22/2018 10:33 Dyspnea on exertion Resu lts for this FILTRATION RATE AM REVENUE CYCLE MANAGER procedure ar e in the results section. CBC BRANCH OFFICE Routine 04/22/2018 10:33 Dyspnea on exertion Results for this W/DIFF AM REVENUE CYCLE MANAGER procedure are i n the results section. TROPONIN I Routine 04/22/2018 10:33 Dyspnea on exertion Resu lts for this AM REVENUE CYCLE MANAGER procedure are i n the results section. TSH Routine 04/22/2018 10:33 Subclinical Results for this AM REVENUE CYCLE MANAGER hypothyroidism procedure are in the results section. HEMOGLOBIN A1C Routine 04/22/2018 10:33 Type 2 diabetes Result s for this AM REVENUE CYCLE MANAGER mellitus with other procedur e are in specified the results complication, without sectio n. long-term current use of insulin (HCC) BASIC METABOLIC Routine 04/22/2018 10:33 Dyspnea on exertion R esults for this PANEL AM REVENUE CYCLE MANAGER procedure are i n the results section. documented in this encounter Results (ABNORMAL) Glomerular filtration rate (GFR) (04/22/2018 10:33 AM REVENUE CYCLE MANAGER) P athologist Signature GFR 49 (A) 04/22/2018 [facility] 12:40 PM [facility] 59 (A) 04/22/2018 [facility] Dominican GFR 12:40 PM [facility] Comment: GFR calculated from serum creatinine v alue Chronic Kidney Disease less than 60 mL/m in/1.73 m2 Kidney Failure less than 15 mL/min/1.73 m2 Note: effective 07/01/06 IDMS-Traceable MDRD Study Equation used. Specimen Anatomical Collection Method Collection Time Receive d Time (Source) Location / / Volume Laterality 04/22/2018 10:33 04/22/2018 AM REVENUE CYCLE MANAGER 10:33 AM REVENUE CYCLE MANAGER Adriane Patel KETTLE ROOM HELPER, AIRCRAFT FUELER LAB BLOOD ORDERABLES Performing Organization Address City/State/ZIP Code Phon e Number [facility] [address] [place] [address] (ABNORMAL) Hemoglobin A1c (04/22/2018 10:33 AM REVENUE CYCLE MANAGER) Analysis Performed At Patho logist Time Signature Hemoglobin A1C 9.0 (H) 4.0 - 5.6 04/22/2018 [place] % A1C 7:27 PM REVENUE CYCLE MANAGER [facility] Comment: Reference Range 4.0-5.6% [...] Location / / Volume Laterality Blood (Blood, 04/22/2018 10:33 04/22/2018 Venous) AM REVENUE CYCLE MANAGER 6:52 PM REVENUE CYCLE MANAGER Adriane Patel APRN, CNP LAB BLOOD ORDERABLES Performing Organization Address [facility] Phon e Number [facility] [address] [place] [phone] TSH (04/22/2018 10:33 AM REVENUE CYCLE MANAGER) athologist Signature TSH, Sensitive 2.05 0.46 - 04/22/2018 [facility] 4.68 mIU/L 8:41 PM REVENUE CYCLE MANAGER [facility] Comment: The results from this [...] Location / / Volume Laterality Blood (Blood, 04/22/2018 10:33 04/22/2018 Venous) AM REVENUE CYCLE MANAGER 6:52 PM REVENUE CYCLE MANAGER Adriane Patel APRN, CNP LAB BLOOD ORDERABLES Performing Organization Address [facility] Phon e Number [facility] [address] [place] [phone] (ABNORMAL) CBC Branch Off w/Diff (04/22/2018 10:33 AM REVENUE CYCLE MANAGER) [facility] Method Time Signature WBC 7.3 3.5 - 10.5 04/22/2018 [facility] K/uL 12:43 PM REVENUE CYCLE MANAGER [place] RBC 3.72 (L) 3.90 - 04/22/2018 [facility] 5.00 M/uL 12:43 PM REVENUE CYCLE MANAGER [place] Hemoglobin 11.0 (L) 12.0 - 04/22/2018 [facility] 15.5 g/dL 12:43 PM REVENUE CYCLE MANAGER [place] Hematocrit 33.7 (L) 35.0 - 04/22/2018 [facility] 44.0 % 12:43 PM REVENUE CYCLE MANAGER [place] Platelets 196 150 - 450 04/22/2018 [facility] K/uL 12:43 PM REVENUE CYCLE MANAGER [place] MCV 90.6 81.6 - 04/22/2018 [facility] 98.3 fL 12:43 PM REVENUE CYCLE MANAGER [place] MCH 29.6 26.0 - 04/22/2018 [facility] 32.0 pg 12:43 PM REVENUE CYCLE MANAGER [place] MCHC 32.6 32.0 - 04/22/2018 [facility] 36.0 g/dL 12:43 PM REVENUE CYCLE MANAGER [place] RDW 12.9 11.9 - 04/22/2018 [facility] 15.5 % 12:43 PM REVENUE CYCLE MANAGER [place] Lymphocytes % 14.7 (L) 18.0 - 04/22/2018 [facility] 45.0 % 12:43 PM REVENUE CYCLE MANAGER [place] Mid-size Cells 10.4 (H) 3.3 - 10.1 04/22/2018 [facility] % 12:43 PM REVENUE CYCLE MANAGER [place] Granulocytes/Jean Claude 74.9 (H) 45.8 - 04/22/2018 [facility] trophils 73.7 % 12:43 PM REVENUE CYCLE MANAGER [place] Lymphocytes 1.1 0.9 - 2.9 04/22/2018 [facility] Absolute K/uL 12:43 PM REVENUE CYCLE MANAGER [place] MIDS Absolute 0.8 0.2 - 0.8 04/22/2018 [facility] K/uL 12:43 PM REVENUE CYCLE MANAGER [place] Granulocytes/Jean Claude 5.4 2.1 - 8.7 04/22/2018 [facility] trophils K/uL 12:43 PM REVENUE CYCLE MANAGER [place] Absolute Specimen Anatomical Collection Method Collection Time Receive d Time (Source) Location / / Volume Laterality Blood (Blood, 04/22/2018 10:33 04/22/2018 Venous) AM REVENUE CYCLE MANAGER 12:38 PM REVENUE CYCLE MANAGER Adriane Patel APRN, AIRCRAFT FUELER LAB BLOOD ORDERABLES Performing Organization Address City/State/ZIP Code Phon e Number [facility] [address] [place] [address] (ABNORMAL) Basic metabolic panel (04/22/2018 10:33 AM REVENUE CYCLE MANAGER) P athologist Signature Sodium 141 135 - 145 04/22/2018 [facility] mmol/L 12:40 PM REVENUE CYCLE MANAGER [place] Potassium 3.5 3.5 - 5.1 04/22/2018 [facility] mmol/L 12:40 PM REVENUE CYCLE MANAGER [place] Comment: . Chloride 108 (H) 98 - 107 mmol/L 04/22/2018 12:40 PM REVENUE CYCLE MANAGER [facility] [place] Comment: . CO2 28 22 - 29 mmol/L 04/22/2018 12:40 PM REVENUE CYCLE MANAGER [facility] [place] Comment: . Creatinine 1.1 0.4 - 1.2 mg/dL 04/22/2018 12:40 PM REVENUE CYCLE MANAGER [facility] [place] [place] Comment: . BUN 20 5 - 25 mg/dL 04/22/2018 12:40 PM REVENUE CYCLE MANAGER [facility] [place] Comment: . Glucose 204 (H) 70 - 100 mg/dL 04/22/2018 12:40 PM [facility] [place] REVENUE CYCLE MANAGER Calcium, Total,S 9.4 8.4 - 10.2 mg/dL 04/22/2018 12:40 PM [facility] [place] REVENUE CYCLE MANAGER Comment: . Fasting? No 04/22/2018 12:38 PM REVENUE CYCLE MANAGER [facility] [place] Comment: 1+ lipemic Specimen Anatomical Collection Method Collection Time Receive d Time (Source) Location / / Volume Laterality Blood (Blood, 04/22/2018 10:33 04/22/2018 Venous) AM REVENUE CYCLE MANAGER 12:38 PM REVENUE CYCLE MANAGER Adriane Patel APRN, AIRCRAFT FUELER LAB BLOOD ORDERABLES Performing Organization Address City/State/ZIP Code Phon e Number [facility] [address] [place] [address] Troponin I (04/22/2018 10:33 AM REVENUE CYCLE MANAGER) P athologist Signature Troponin I <0.012 0.012 - 04/22/2018 [facility] 0.034 ng/mL 7:24 PM REVENUE CYCLE MANAGER [facility] Comment: Note Reference Value Range Change: <=0.034 ??Normal >0.034 ?? Abnormal >0.120 ?? Indicates a high likelihood of myocardial infarction ? in patients with symptoms o f ischemia Diagnosis of myocardial infarction can b e based on detection of a characteristic rise and/or fall of Troponin-I, with at least one value >0.034 ng/mL, together w ith evidence of myocardial ischemia with at least one of the following: ??* Symptoms of ischemia ??* ECG changes indicative of new ische luis ??* Development of pathological Q Waves in the ECG ??* Imaging evidence of new loss of via ble myocardium or new ?regional wall motion abnormality. A single Troponin-I measurement of >0.12 0 ng/mL conveys a high likelihood of mycoardial infarction in patients with symptoms of ischemia; however, a charact eristic rise and/or fall of Troponin-I is still required for a definitive diagnosis of myocardial infarction. The results from this or any other [...] Location / / Volume Laterality Blood (Blood, 04/22/2018 10:33 04/22/2018 Venous) AM REVENUE CYCLE MANAGER 6:52 PM REVENUE CYCLE MANAGER Adriane Patel APRN AIRCRAFT FUELER LAB BLOOD ORDERABLES Performing Organization Address City/State/ZIP Code Phon e Number [facility] [address] [place] [address] documented in this encounter Visit Diagnoses Diagnosis Type 2 diabetes mellitus with other spec ified complication, without long-term current use of insulin (HCC) Dyspnea on exertion Other dyspnea and respiratory abnormalit y Subclinical hypothyroidism Other specified acquired hypothyroidism documented in this encounter Care Teams Edi Consultant Relationship Specialty Start Date End Date Adriane Patel APRN, AIRCRAFT FUELER PCP - General 09/22/17 07/06/19 100 [facility] [place] [address] documented as of this encounter
--- OUTSIDE RECORDS SUMMARY | 2021-09-05 00:15 | XMS_ITS | Encounter Summary ---
:1945 Author Organization [facility] Address [address] [place] [address] Care Team Providers Name Role Phone Ronak Patel BOTTLE PACKING MACHINE CLEANER, QC CHEMIST Primary Care Provider Encounter Details Date Type Department Care Team Description 04/03/2018 Orders Only [place] Adriane Patel, Urinary tract [address] BOTTLE PACKING MACHINE CLEANER, QC CHEMIST infection without Chuckie Pierre, [place] [address] hematuria, site [address] [place] [address] unspecified (Primary [phone] Dx) Social History Tobacco Use Types Packs/Day [...] Primary documented in this encounter Care Teams Statue Carver Relationship Specialty Start Date End Date Adriane Patel, BOTTLE PACKING MACHINE CLEANER, QC CHEMIST PCP - General 09/22/17 07/06/19 100 [facility] [place] [address] documented as of this encounter
--- OUTSIDE RECORDS SUMMARY | 2021-09-05 00:15 | XMS_ITS | Encounter Summary ---
:1945 Author Organization [facility] Address [address] [place] [address] Care Team Providers Name Role Phone Ronak Patel SOLE FILLER, PLATFORM MILL SUPERVISOR Primary Care Provider Encounter Details Date Type Department Care Team Description 04/20/2018 Telephone [place] Adriane Patel, [address] SOLE FILLER, LEONARD [place], [place] [address] [address] [facility] [address] [address] [phone] [place], [place] [address] Social History Tobacco Use [...] encounter Miscellaneous Notes Telephone Encounter - Phoebe Jayde - 04/20/2018 8:37 AM CST Order faxed. OR MACHINE FEEDER Telephone Encounter - Margareth Sanchez RN - 04/20/2018 8:20 AM CST Please fax cologuard order with face sheet to the number listed on the form. OR MACHINE FEEDER documented in this encounter Plan of Treatment Not on filedocumented as of this encounter Visit Diagnoses Not on filedocumented in this encounter Care Teams Retail Customer Service Specialist Relationship Specialty Start Date End Date Adriane Patel, SOLE FILLER, PLATFORM MILL SUPERVISOR PCP - General 09/22/17 07/06/19 100 [facility] [place] [address] documented as of this encounter
--- OUTSIDE RECORDS SUMMARY | 2021-09-05 00:15 | XMS_ITS | Encounter Summary ---
:1945 Author Organization [facility] Address [address] [place] [address] Care Team Providers Name Role Phone Ronak Patel GEOCHEMICAL MANAGER, ACCOUNT SERVICES MANAGER Primary Care Provider Reason for Visit Reason Onset Date Comments UTI 04/27/2018 Encounter Details Date Type Department Care Team Description 04/27/2018 Telephone [place] Adriane Patel, UTI [address] GEOCHEMICAL MANAGER, ACCOUNT SERVICES MANAGER [place], [place] [address] [address] [facility] [address] [phone] [place], [place] [address] Social History Tobacco Use [...] Telephone Encounter - Margareth Sanchez RN - 04/27/2018 1:53 PM CDT Patient reports she has a burning sensation when she sits. She denies urgency, frequency or dysuria.She does not meet the UTI protocol. Patient also had a UTI 04/01/18 and was treated with Macrobid. Patient will be coming in at 3:00 to see Sanam in this regard. Telephone Encounter - Phoebe Donohue - 04/27/2018 1:36 PM CDT Patient feels she has another UTI. Please advise. documented in this encounter Plan of Treatment Not on filedocumented as of this encounter Visit Diagnoses Not on filedocumented in this encounter Care Teams Aircraft Assembler Relationship Specialty Start Date End Date Adriane Patel APRN, ACCOUNT SERVICES MANAGER PCP - General 09/22/17 07/06/[address] [place] [address] [place] [address] documented as of this encounter
--- OUTSIDE RECORDS SUMMARY | 2021-09-05 00:15 | XMS_ITS | Encounter Summary ---
:1945 Author Organization [facility] Address [address] [place] [address] Care Team Providers Name Role Phone Ronak Patel SCROLL MACHINE OPERATOR, CONFERENCE SERVICE COORDINATOR Primary Care Provider Reason for Visit Reason Comments UTI Encounter Details Date Type Department Care Team Description 04/27/2018 Office Visit [place] Sanam Darnell Ronak, Dysuria (Primary Dx); [address] SCROLL MACHINE OPERATOR, CONFERENCE SERVICE COORDINATOR Type 2 diabetes mellitus wit h other specified complication, without long-term current use of insulin (HCC) [place], [place] [address] Social History Tobacco Use [...] Sign Reading Time Taken Comments Blood Pressure 130/80 04/27/2018 3:11 PM CDT Pulse 78 04/27/2018 3:11 PM CDT Temperature 36.6 ??C (97.8 ??F) 04/27/2018 3:11 PM CDT Respiratory Rate 16 04/27/2018 3:11 PM CDT Oxygen Saturation 98% 04/27/2018 3:11 PM CDT Inhaled Oxygen Concentration - - Weight 82.9 kg (182 lb 12.2 oz) 04/27/2018 3:11 PM CDT Height 161 cm (5' 3.39) 04/27/2018 3:11 PM CDT Body Mass Index 31.98 04/27/2018 3:11 PM CDT documented in this encounter Progress Notes Sanam Darnell, MOUNTER AUTOMATIC - 04/27/2018 3:00 PM CDT Estab Patient Visit Subjective Patient ID: Marcial Adams is a 72 y.o. female. Marcial is here with symptoms of dysuria and frequency on and off for the past three weeks. Recently treated for a UTI with Macrobid BID for 7 days and symptoms seemed to improve slightly. Denies back pain, fever or nausea or vomiting. Denies any vaginal discharge. Denies vaginal itching. Is sexually ac tive with her about once every month but that has not been a contributing factor to her symptoms. Wears a pad to help with urinary incontinence and is unsure if that is contributing to her symptoms. Has been seen by a urologist in the past for incontinence but no significant problem identified. Patient is a type II diabetic with her last A1c being 9.0. She has struggled with affordability of her insulin. Blood sugars have been elevated as high as 300-400. Concerned that her most recent urinary tract infection did not clear completely. Afebrile. Poor water intake. Avoids caffeine. Visit Vitals BP 130/80 (BP Location: Left arm, Patient Position: Sitting) Pulse 78 Temp 36.6 ??C (97.8 ??F) (Temporal) Resp 16 Ht 1.61 m (5' 3.39) Wt 82.9 kg (182 lb 12.2 oz) SpO2 98% BMI 31.98 kg/m?? Smoking Status Never Smoker BSA 1.93 m?? Review of Systems Constitutional: Negative. Genitourinary: Positive for dysuria, frequency and urgency. Negative for vaginal discharge. Neurological: Negative. Hematological: Negative. Psychiatric/Behavioral: Negative. Objective Physical Exam Constitutional: She is oriented to person, place, and time. Neurological: She is alert and oriented to person, place, and time. Skin: Skin is warm. Psychiatric: She has a normal mood and affect. Assessment/Plan Diagnoses and all orders for this visit: Dysuria - Urinalysis with reflex microscopic (clean catch); Future - nitrofurantoin, macrocrystal-monohydrate, (MACROBID) 100 MG capsule; Take 1 capsule (100 mg total) by mouth 2 (two) times a day for 5 days - Urine culture; Future Type 2 diabetes mellitus with other specified complication, without long-term current use of insulin Hemoglobin A1c is 9.0 and currently is on Januvia 50 mg once daily along with glipizide 10 mg twice daily. Is struggling to afford the Januvia at this time. May benefit from referral to endocrine. Urine shows a moderate amount of leucocytes without nitrites. Small amount of red blood cells present in her urine which will need to be monitored. Will start patient on Macrobid twice daily for 5 days and await urine culture results. Advised to increase her water intake. Discussed the importance of voiding after intercourse. Follow-up in clinic if no improvement. Has verbalized understanding of plan and is in agreement. documented in this encounter Plan of Treatment Not on filedocumented as of this encounter Results Urine culture (05/24/2018 11:33 AM CDT) [facility] Method Time Signature Urine Culture No Growth 05/25/2018 G[facility] 1:20 PM T [facility] Specimen Anatomical Collection Method Collection Time Receive d Time (Source) Location / / Volume Laterality Urine, Clean 05/24/2018 11:33 05/25/2018 Catch AM CDT 1:09 PM CDT Narrative [facility] - 10/2018 1:20 PM CDT Patient does not have an Amoxicillin or PCN allergy Sanam Darnell SCROLL MACHINE OPERATOR, CONFERENCE SERVICE COORDINATOR LAB MICROBIOLOGY - GENERAL O RDERABLES Performing Organization Address City/State/ZIP Code Phon e Number [facility] [address] [place] [address] (ABNORMAL) Urinalysis with reflex microscopic (clean catch) (04/27/2018 3:22 PM CDT) [facility] Method Time Signature Type CLEAN CATCH 04/27/2018 [facility] 3:39 PM CDT [place] Color, Urine STRAW YELLOW 04/27/2018 [facility] 3:39 PM CDT [place] Clarity, CLEAR CLEAR 04/27/2018 [facility] Urine 3:39 PM CDT [place] Glucose, NEGATIVE NEGATIVE 04/27/2018 [facility] Urine mg/dL 3:39 PM CDT [place] Bilirubin, NEGATIVE NEGATIVE 04/27/2018 [facility] Urine 3:39 PM CDT [place] Ketones, NEGATIVE NEGATIVE 04/27/2018 [facility] Urine mg/dL 3:39 PM CDT [place] Specific 1.025 1.000 04/27/2018 [facility] [place], ->=1.030 3:39 PM CDT [place] Urine Blood, Urine NEGATIVE NEGATIVE 04/27/2018 [facility] 3:39 PM CDT [place] pH, Urine 5.0 5.0 - 7.0 04/27/2018 [facility] 3:39 PM CDT [place] Protein, NEGATIVE NEGATIVE-TRA 04/27/2018 [facility] Urine CE mg/dL 3:39 PM CDT [place] Urobilinogen, 0.2 0.2 - 1.0 04/27/2018 [facility] Urine E.U./dL 3:39 PM CDT [place] Nitrite, NEGATIVE NEGATIVE 04/27/2018 [facility] Urine 3:39 PM CDT [place] Leukocytes, MODERATE (A) NEGATIVE 04/27/2018 [facility] Urine 3:39 PM CDT [place] Specimen Anatomical Collection Method Collection Time Receive d Time (Source) Location / / Volume Laterality Urine (Urine, 04/27/2018 3:22 04/27/2018 Clean Catch) PM CDT 3:22 PM CDT Sanam Darnell APRN, CONFERENCE SERVICE COORDINATOR LAB URINE ORDERABLES Performing Organization Address City/State/ZIP Code Phon e Number [facility] [place] [address] [place] [address] documented in this encounter Visit Diagnoses Diagnosis Dysuria - Primary Type 2 diabetes mellitus with other spec ified complication, without long-term current use of insulin (HCC) Type 2 diabetes mellitus with other spec ified complication, without long-term current use of insulin (HCC) Dysuria documented in this encounter Care Teams Monorail Hooker Relationship Specialty Start Date End Date Adriane Patel, SCROLL MACHINE OPERATOR, CONFERENCE SERVICE COORDINATOR PCP - General 09/22/17 07/06/19 100 [facility] [place] [address] documented as of this encounter
--- OUTSIDE RECORDS SUMMARY | 2021-09-05 00:15 | XMS_ITS | Encounter Summary ---
:1945 Author Organization [facility] Address [address] [place] [address] Care Team Providers Name Role Phone Ronak Patel PLASTIC TUBING INSULATION SUPERVISOR, DRUG SAFETY ASSOCIATE Primary Care Provider Reason for Visit Reason Comments Med Refill Encounter Details Date Type Department Care Team Description 06/22/2018 Refill [place] Adriane Patel, Anxiety (Primary Dx) [address] PLASTIC TUBING INSULATION SUPERVISOR, LEONARD [place], [place] [address] [address] [facility] [address] [phone] [place], [place] [address] Social History Tobacco Use [...] More than 4 times per year 12/23/2018 buddhism services? Do you belong to any clubs [...] Notes Telephone Encounter - Luciana Verena - 06/24/2018 1:32 PM CDT Rx faxed to [facility] as requested. Telephone Encounter - Ana Cristina Prado MA - 06/24/2018 1:28 PM [facility] Telephone Encounter - Adriane Patel APRN, LEONARD - 06/24/2018 1:27 PM CDT Please fax to [facility]. Thanks, Suresh Telephone Encounter - Margareth Sanchez RN - 06/24/2018 12:59 PM CDT Patient would like to use [facility] in Telephone Encounter - Luciana Albarado - 06/24/2018 12:06 PM CDT Pt stated there should be two refills coming through and she would prefer to have them filled at [facility]. Call Pt as necessary. Telephone Encounter - Adriane Patel APRN, LEONARD - 06/24/2018 9:39 AM CDT Please verify with the patient where she would like this faxed to, it appears that came from the [place] pharmacy as requested. Thanks Suresh Telephone Encounter - Kathy Flores MA - 06/24/2018 9:27 AM CDT Alprazolam (xanax) 0.5 MG tablet last rx, 09/28/17 # 15, 3 refills Last date med(s) reviewed: 10/29/17 No Appt scheduled 04/22/18 PHQ9: 0 documented in this encounter Plan of Treatment Not on filedocumented as of this encounter Visit Diagnoses Diagnosis Anxiety - Primary Anxiety state, unspecified documented in this encounter Care Teams Signal Processing Engineer Relationship Specialty Start Date End Date Adriane Patel, PLASTIC TUBING INSULATION SUPERVISOR, DRUG SAFETY ASSOCIATE PCP - General 09/22/17 07/06/19 [address] [place] [address] documented as of this encounter
--- OUTSIDE RECORDS SUMMARY | 2021-09-05 00:15 | XMS_ITS | Encounter Summary ---
:1945 Author Organization [facility] Address [address] [place] [address] Care Team Providers Name Role Phone Ronak Patel LIGHTING ENGINEERING TECHNICIAN, COTTON CANDY MAKER Primary Care Provider Reason for Visit Reason Onset Date Comments Referral 06/21/2018 Encounter Details Date Type Department Care Team Description 06/21/2018 Telephone Chuckie Pierre Adriane Patel, Referral [address] LIGHTING ENGINEERING TECHNICIAN, COTTON CANDY MAKER [place], [place] [address] [address] [facility] [address] [phone] [place], [place] [address] Social History Tobacco Use [...] 12/23/2018 organizations such as episcopal groups, unions, fraternal or athletic groups, or [...] Notes Telephone Encounter - Phoebe Jayde - 06/22/2018 8:59 AM CDT Referral faxed. Telephone Encounter - Margareth Sanchez RN - 06/22/2018 8:40 AM CDT Please fax to [facility]. Telephone Encounter - Adriane Patel APRN, LEONARD - 06/22/2018 8:16 AM CDT Please fax the referral. Thanks, Suresh Telephone Encounter - Margareth Sanchez RN - 06/21/2018 4:06 PM CDT Patient reports she has a dark spots in her groin that bleed periodically. She reports that they come and go and she was supposed have an US done but when she went in they weren't present and she didn't have it done. Patient said that she has some discomfort to the area when she pushes on it. She said it is located in the crease by her groin and leg. It has been on and off for a year or so. Please advise. Telephone Encounter - Adriane Patel APRN, LEONARD - 06/21/2018 4:05 PM CDT Please have the patient update us on her symptoms thanks Suresh Telephone Encounter - Ana Cristina Prado MA - 06/21/2018 9:20 AM CDT Please advise Telephone Encounter - Phoebe Donohue - 06/21/2018 9:06 AM CDT Patient is having more issues and would like to proceed with CT as discussed in previous visit. She would like this done at [facility]. documented in this encounter Plan of Treatment Not on filedocumented as of this encounter Visit Diagnoses Not on filedocumented in this encounter Care Teams Records Management Director Relationship Specialty Start Date End Date Adriane Patel APRN, COTTON CANDY MAKER PCP - General 09/22/17 07/06/19 100 [place] [address] documented as of this encounter
--- OUTSIDE RECORDS SUMMARY | 2021-09-05 00:15 | XMS_ITS | Encounter Summary ---
:1945 Author Organization [facility] Address [address] [place] [address] Care Team Providers Name Role Phone Ronak Patel ON SITE MANAGER, LITHOGRAPHIC PROOFER Primary Care Provider Reason for Visit Reason Onset Date Comments Med Refill 03/03/2018 Encounter Details Date Type Department Care Team Description 03/03/2018 Telephone [place] Adriane Patel, Med Refill [address] ON SITE MANAGER, LEONARD [place], [place] [address] [facility] [address] [phone] [place], [place] [address] Social History Tobacco Use [...] Telephone Encounter - Lana Knight LPN - 03/04/2018 7:50 AM CST Noted TECHNICIAN Telephone Encounter - Brenda House - 03/03/2018 4:40 PM CST Picked up glipizide at [facility] already TECHNICIAN Telephone Encounter - Ana Cristina Prado MA - 03/03/2018 10:15 AM CST Left message for patient. Need to know if she needs her Glipizide sent to [facility] or [facility]. TECHNICIAN documented in this encounter Plan of Treatment Not on filedocumented as of this encounter Visit Diagnoses Not on filedocumented in this encounter Care Teams Network Field Engineer Relationship Specialty Start Date End Date Adriane Patel APRN, LITHOGRAPHIC PROOFER PCP - General 09/22/17 07/06/[address] [place] [address] [place] STARK [address] documented as of this encounter
--- OUTSIDE RECORDS SUMMARY | 2021-09-05 00:15 | XMS_ITS | Encounter Summary ---
:1945 Author Organization [facility] Address [address] [place] [address] Care Team Providers Name Role Phone Ronak Patel APRN, CNP Primary Care Provider Reason for Referral Consultation (Routine) - Closed Specialty Diagnoses / Procedures Referred By Contact Refer red To Contact Diagnoses Left groin mass Adriane Patel, [facility] LE[facility]ARD RESEN[facility] - [place] 100 [facility] [id number] [place] [address] [place] [address] Phone: Fax: Referral ID Status Reason Start Date Expiration Date Visits Requ ested Visits Authorized [id number] Closed 06/22/2018 06/23/2019 1 1 Encounter Details Date Type Department Care Team Description 06/22/2018 Orders Only [place] Adriane Patel, Left groin mass [address] LEONARD RESENDEZ (Primary Dx) [place], [place] [address] [facility] [address] [address] [place] [address] Social History Tobacco Use Types Packs/Day Years [...] Schedule Diagnoses Ambulatory External Outpatient Referral Routine Left groin mas s Ordered: Referral 06/22/2018 documented as of this encounter Visit Diagnoses Diagnosis Left groin mass - Primary documented in this encounter Care Teams Vp Strategic Partnerships Relationship Specialty Start Date End Date Adriane Patel APRN, WHITE SIDEWALL TIRE BUFFER PCP - General 09/22/17 07/06/19 100 [place] [address] documented as of this encounter
--- OUTSIDE RECORDS SUMMARY | 2021-09-05 00:15 | XMS_ITS | Encounter Summary ---
:1945 Author Organization [facility] Address [address] [place] [address] Care Team Providers Name Role Phone Ronak Patel REVERSER, RESIDENTIAL PROGRAM COORDINATOR Primary Care Provider Reason for Visit Reason Comments Med Refill Encounter Details Date Type Department Care Team Description 03/08/2018 Refill Corn PatelAdriane, Type [address] diabetes [address] REVERSER, RESIDENTIAL PROGRAM COORDINATOR mellitus with other [place], [place] [address] specified complication, [place], [place] [address] without long-term current use [...] Telephone Encounter - Lana Knight LPN - 03/10/2018 3:45 PM CST She hasn't really taken them much. She will start checking again more frequently. CRATER Telephone Encounter - Adriane Patel APRN, LEONARD - 03/10/2018 2:14 PM EGG CRATER Great then she understood the directions during our last clinical visit, did you happen to ask her how her blood sugars were running, with the increased dose. Toi, Suresh CRATER Telephone Encounter - Lana Knight LPN - 03/10/2018 1:48 PM CST One in the morning and one at night, 5mg tablets. CRATER Telephone Encounter - Adriane Patel APRN, LEONARD - 03/10/2018 12:34 PM EGG CRATER Please call the patient and verify the dose she is taking, and find out if her blood sugars have been doing. Thanks, Suresh CRATER Telephone Encounter - Zoey Thomas MA - 03/10/2018 9:33 AM CST Last refill: 06/24/2017 Patient's last appointment for medication requested was 02/19/2018- Med review No follow up scheduled at this time. Please advise if patient needs an appointment. Albumin, Serum Date Value Ref Range Status 12/24/2017 4.5 3.5 - 5.0 g/dL Final Creatinine Date Value Ref Range Status 12/24/2017 1.4 (H) 0.4 - 1.2 mg/dL Final Comment: . Cholesterol Date Value Ref Range Status 02/24/2017 221 (A) 0 - 199 mg/dL Final Comment: Recommended by National Cholesterol Education Program (ATP III) Cholesterol Ranges <200 Desirable 200-239 Borderline high >=240 High LDL Calculated Date Value Ref Range Status 02/24/2017 115 (A) 0 - 99 mg/dL Final Comment: LDL Ranges <100 Optimal 100-129 Near optimal/above optimal 130-159 Borderline high 160-189 High >=190 Very high HDL Date Value Ref Range Status 02/24/2017 44 40 - 60 mg/dL Final Comment: HDL Ranges <40 Low 40-59 Normal >=60 Optimal Triglycerides Date Value Ref Range Status 02/24/2017 308 (A) 0 - 149 mg/dL Final Comment: TRIG Ranges <150 Normal 150-199 Borderline high 200-499 High >=500 Very high Hemoglobin A1C Date Value Ref Range Status 02/15/2018 8.2 (H) 4.0 - 5.6 % A1C Final Comment: Reference Range 4.0-5.6% is for non- adults >=18 yrs <5.6% Non-Diabetic 5.7-6.4% Increased risk of Diabetes >=6.5% Indicative of Diabetes <7.0% ADA goal for glycemic control Methodology may not detect all hemoglobin variants which can affect A1c results. Method certified by National Glycohemoglobin Standardization Program. CRATER documented in this encounter Plan of Treatment Not on filedocumented as of this encounter Visit Diagnoses Diagnosis Type 2 diabetes mellitus with other spec ified complication, without long-term current use of insulin (HCC) - Primary documented in this encounter Care Teams Homicide Squad Captain Relationship Specialty Start Date End Date Adriane Patel, REVERSER, RESIDENTIAL PROGRAM COORDINATOR PCP - General Family Medicine 08/20/[address] [place] [address] [place] [address] documented as of this encounter
--- OUTSIDE RECORDS SUMMARY | 2021-09-05 00:15 | XMS_ITS | Encounter Summary ---
:1945 Author Organization [facility] Address [address] [place] [address] Care Team Providers Name Role Phone Ronak Patel VACUUM FORM OPERATOR, ONLINE BANKING SPECIALIST Primary Care Provider Encounter Details Date Type Department Care Team Description 05/12/2018 Orders Only Chuckie Pierre Adriane Patel, Type 2 diabetes [address] VACUUM FORM OPERATOR, ONLINE BANKING SPECIALIST mellitus with other Chuckie Pierre [place] [address] specified [address] [place] [address] complication, without [phone] long-ter m current use of insulin (HCC ) (Primary Dx) Social History Tobacco Use Types [...] or relatives? How often do you attend hoahaoism or More than 4 times per year 12/23/2018 rastafari services? Do you belong to any clubs or No 12/23/2018 organizations such as hoahaoism groups, unions, fraternal or athletic groups, or [...] Name Priority Date/Time Associated Diagnosis Comme nts COLOGUARD Routine 05/12/2018 5:00 AM Results for this CDT procedure are i n the results section . documented in this encounter Results (ABNORMAL) Hemoglobin A1c (05/24/2018 11:44 AM CDT) Analysis Performed At Patho logist Time Signature Hemoglobin A1C 8.5 (H) 4.0 - 5.6 05/25/2018 [place] % A1C 1:14 PM CDT [facility] Comment: Reference [...] Location / / Volume Laterality Blood (Blood, 05/24/2018 11:44 05/25/2018 Venous) AM CDT 12:36 PM CDT Adriane Patel APRN, ONLINE BANKING SPECIALIST LAB BLOOD ORDERABLES Performing Organization Address City/State/ZIP Code Phon e Number [facility] [address] [place] [address] Cologuard (05/12/2018 5:00 AM CDT) [facility] gist Method Time Signature Cologuard Negative Not Applicable EXACT result [employer], [employer] Comment: A negative result indicates a low likeli rodriguez that a colorectal cancer (CRC) or an advanced adenoma (adenomatous polyps with more advanced pre-malignant features) is present. The chance that a person wit h a negative Cologuard test has a colore ctal cancer is less than 1 in 1500 (negative predictive value >99.9%) or has an advanced adenoma is less than 5.3% (negative predictive value 94.7%). These ulises a are based on a prospective cross-secti onal screening study of 10,000 individuals at average risk for colorectal cancer who were screened with both Cologuard and colonoscopy. (Sadiq Hutchinson al, N Eng l J Med 2014;370(14):3516-4904) ?? COLOG UARD RE-SCREENING RECOMMENDATION: Periodic routine colorectal cancer screening is an important part of preventive healthcare for asymptomatic persons at average r isk for colorectal cancer. ??Following a negative Cologuard result, the [place] Cancer Society and U.S. Multi-Society Task Force screening guidelines recommend a Cologuard re-screening interval of 3 years. ??References: Citizen [place] Cance r Society (ACS). Colorectal cancer prevention and early detection. [place], [place]: [place] Cancer Society; [updated 2015Jun 09]. https://www.cancer.org/cancer/colo g-bgfdjr-ytxkoz/czlcijjxe-jgztewkgs-dyed ing/acs-recommendations.html. Accessed October 16, 2017; Johnnie DK, Merced KING, Jasper MurrayK, Colorectal Cancer Screening: Recommendations for Physicians and Patients f rom the U.S. Multi-Society Task Force on Colorectal Cancer Screening, Am J Gastroenterology 2017; 112:8081-6276. Test Type: Composite algorithmic analysi s of stool DNA-biomarkers with hemoglobin immunoassay. ?? Quantitative values of individual biomarkers are not reportable and are not associated with individual biomarker result reference ranges. Precautions and Limitations: Cologuard i s intended for colorectal cancer screening of adults of either sex, 50 years or older, who are at typical average-risk for colorectal cancer. A negative Cologuard test result does not guarantee the abse nce of colorectal cancer or advanced adenoma (pre-cancer). Patients with a negative Cologuard test result should be advised to continue participating in a colorec ines cancer screening program. Cologuard may produce a positive result, even though a colonoscopy may not find colorectal cancer or precancerous polyps. The performance of Cologuard has been established in a cross sectional study (i.e., single point in time). Performance has not been evaluated in adults who have been previously tested with Cologuard or in patients less than 50 years of age. Cologuard h as been approved for use by the U.S. FDA . Cologuard performance data in a 10,000 patient pivotal study using colonoscopy as the reference method can be accessed at the following location: www.[employer]ers/results. ??Additional description of the Cologuard test process, warnings and precautions can be found at www.cologuardtest.com. Rx Only. [employer], [address] [place] [address], [address], [place], [address], , Clinical Laboratory Cam Specialist, Luciana Dodge, Ph.D., [facility], CLIA NO: [id number] Specimen Anatomical Collection Method Collection Time Receive d Time (Source) Location / / Volume Laterality 05/12/2018 5:00 05/13/2018 AM CDT 3:30 PM CDT Adriane Patel APRN, ONLINE BANKING SPECIALIST LAB BODY FLUIDS AND STOOL S ORDERABLES Performing Organization Address City/State/ZIP Code Phon e Number [employer], [address] [place] [address] [facility] [address] documented in this encounter Visit Diagnoses Diagnosis Type 2 diabetes mellitus with other spec ified complication, without long-term current use of insulin (HCC) - Primary documented in this encounter Care Teams Regional Director Of Finance Relationship Specialty Start Date End Date Adriane Patel APRN, ONLINE BANKING SPECIALIST PCP - General 09/22/17 07/06/19 100 [facility] [place] [address] documented as of this encounter
--- OUTSIDE RECORDS SUMMARY | 2021-09-05 00:15 | XMS_ITS | Encounter Summary ---
:1945 Author Organization [facility] Address [address] [place] [address] Care Team Providers Name Role Phone Ronak Patel NUTRITION AIDES TEACHER, TRAFFIC OFFICER Primary Care Provider Reason for Visit Reason Onset Date Comments Coding 04/08/2018 Encounter Details Date Type Department Care Team Description 04/08/2018 Telephone [place] Adriane Patel, Coding [address] NUTRITION AIDES TEACHER, TRAFFIC OFFICER [place], [place] [address] [address] [facility] [address] [phone] [place], [place] [address] Social History Tobacco Use [...] or relatives? How often do you attend cheondoism or More than 4 times per year 12/23/2018 rastafarian services? Do you belong to any clubs or No 12/23/2018 organizations such as cheondoism groups, unions, fraternal or athletic groups, or [...] Encounter - Ana Cristina Prado MA - 04/09/2018 1:00 PM CST Patient informed CISE PHYSIOLOGY PROFESSOR Telephone Encounter - Margareth Sanchez RN - 04/09/2018 9:38 AM CST I spoke to billing department who said the patient called 2 weeks ago and this was already changed and is back with insurance. According to billing this has been taken care of. CISE PHYSIOLOGY PROFESSOR Telephone Encounter - Adriane Patel APRN, LEONARD - 04/08/2018 2:52 PM EXERCISE PHYSIOLOGY PROFESSOR This medication review, unsure where billing go preventative? Please check with billing/coding. Thanks, Suresh CISE PHYSIOLOGY PROFESSOR Telephone Encounter - Margareth Sanchez RN - 04/08/2018 2:46 PM CST Please review and let me know what you'd like me to talk about with coding. CISE PHYSIOLOGY PROFESSOR Telephone Encounter - Phoebe Donohue - 04/08/2018 2:28 PM CST Patient received a bill from February 19 visit. She was here for a med review. Apparently it was billed as a preventative and not office visit. She is wondering if this can be changed. Please advise. CISE PHYSIOLOGY PROFESSOR documented in this encounter Plan of Treatment Not on filedocumented as of this encounter Visit Diagnoses Not on filedocumented in this encounter Care Teams Air Compressor Engineer Relationship Specialty Start Date End Date Adriane Patel APRN, TRAFFIC OFFICER PCP - General 09/22/17 07/06/19 100 [facility] [place] [address] documented as of this encounter
--- OUTSIDE RECORDS SUMMARY | 2021-09-05 00:15 | XMS_ITS | Encounter Summary ---
:1945 Author Organization [facility] Address [address] [place] [address] Care Team Providers Name Role Phone Ronak Patel AUTOMOTIVE SALES MANAGER, PILOT TEACHER Primary Care Provider Encounter Details Date Type Department Care Team Description 06/24/2018 Lab Chuckie Pierre Type 2 diabetes mellitus wit h [address] other specified complication , [place] [address] without long-term current us e [phone] of insulin (HCC ) Social History Tobacco [...] More than 4 times per year 12/23/2018 yazdanism services? Do you belong to any clubs [...] Associated Diagnosis Comme nts HEMOGLOBIN A1C Routine 06/24/2018 10:45 AM Type 2 diabetes Res ults for this CDT mellitus with other procedur e are in the specified results section . complication, without long-term current use of insulin (HCC) documented in this encounter Results (ABNORMAL) Hemoglobin A1c (06/24/2018 10:45 AM CDT) Analysis Performed At Patho logist Time Signature Hemoglobin A1C 8.5 (H) 4.0 - 5.6 06/24/2018 [place] % A1C 5:31 PM CDT [facility] Comment: Reference [...] Location / / Volume Laterality Blood (Blood, 06/24/2018 10:45 06/24/2018 Venous) AM CDT 5:00 PM CDT Adriane Patel APRN, PILOT TEACHER LAB BLOOD ORDERABLES Performing Organization Address City/State/ZIP Code Phon e Number [facility] [address] [place] [address] documented in this encounter Visit Diagnoses Diagnosis Type 2 diabetes mellitus with other spec ified complication, without long-term current use of insulin (HCC) documented in this encounter Care Teams Bi Lead Relationship Specialty Start Date End Date Adriane Patel APRN, PILOT TEACHER PCP - General 09/22/17 07/06/19 100 [place] [address] documented as of this encounter
--- OUTSIDE RECORDS SUMMARY | 2021-09-05 00:15 | XMS_ITS | Encounter Summary ---
:1945 Author Organization [facility] Address [address] [place] [address] Care Team Providers Name Role Phone Ronak Patel APRN, GREENBELT Primary Care Provider Reason for Visit Reason Comments Follow-up Diabetes Encounter Details Date Type Department Care Team Description 04/01/2018 Office Visit [place] JorgeAdriane Type 2 diabetes mellitus wit h other specified complication, without long-term current use of insulin (HCC) (Primary Dx); [address] M, LEONARD RESENDEZ Weak urinary stream [place], [place] [address] [address] [place] [address] Social History Tobacco Use Types Packs/Day Years [...] Sign Reading Time Taken Comments Blood Pressure 128/84 04/01/2018 10:33 AM TREE FALLER Pulse 88 04/01/2018 10:33 AM TREE FALLER Temperature 35.9 ??C (96.6 ??F) 04/01/2018 10:33 AM TREE FALLER Respiratory Rate 16 04/01/2018 10:33 AM TREE FALLER Oxygen Saturation 97% 04/01/2018 10:33 AM TREE FALLER Inhaled Oxygen Concentration - - Weight 81.4 kg (179 lb 7.3 oz) 04/01/2018 10:33 AM TREE FALLER Height 157.5 cm (5' 2) 04/01/2018 10:33 AM TREE FALLER Body Mass Index 32.82 04/01/2018 10:33 AM TREE FALLER documented in this encounter Patient Instructions Patient InstructionsChgarfield Patel APRN, CNP - 04/01/2018 10:20 AM TREE FALLER Glipizide 10 mg twice daily Lisinopril 2.5 mg daily FALLER documented in this encounter Progress Notes Adriane Patel APRN, CNP - 04/01/2018 10:20 AM CST Estab Patient Visit Subjective Patient ID: Marcial Adams is a 72 y.o. female presenting for the following concerns. Chief Complaint Patient presents with ??? Follow-up Diabetes HPI: The patient is a pleasant 72-year-old female presenting ambulatory to the clinical setting today accompanied by her to discuss her type 2 diabetes. The patient has a long-standing history of type 2 diabetes and is on oral hypoglycemics. The patient was diagnosed with rheumatoid arthritis last y ear, having several IV steroid infusions, which caused fluctuations in her blood sugars, and maintaining stable blood sugars was challenging. The patient has is now on stable medication for her RA, with good control of her symptoms, managed by her cigarette making machine hopper feeder. The patient???s hemoglobin A1c on 02/15/2018 was 8.2, and she was evaluated on 02/19/18. The patient is currently on glipizide 5 mg twice daily, she discontinued the Januvia 50 mg daily, 2 weeks ago, not renewing the Januvia in March, as the out of pocket cost to the patient in February was $430.00 for 30 days. The patient diligently checks her blood sugars with a detailed account of her diet, and brings this information with her today. The patient's bloods sugars have been trending upward since she discontinued the Januvia, and on March 19, her morning fasting blood sugar was 133, this morning 181; her 5:00 blood sugar has increased from 183, 2 weeks ago to 260 last evening. The patient denies hypoglycemic episodes. The patient discontinued metformin for renal dysfunction with normalization in her kidney functions. The patient is not on lisinopril and is unsure why she discontinued it. The patient is not on statin medication because it caused nightmares. The patient continues have episodes of vertigo, typically in the morning upon arising, almost every morning, when tilting her head in certain positions, but not to point she loses her balance. The patient has had a thorough workup through neurology and cardiology, and was diagnosed with benign positional vertigo. The patient reports physical therapy has been beneficial. The patient is inquiring about Cologuard testing, and she is hesitant in proceeding with a colonoscopy, as she is concerned about perforation. No family history of colon cancer. No personal or family history of colon polyps. The patient reports she has a slow, weak urinary stream for the past 2 or 3 months, without UTI symptoms. No increased urinary frequency or urgency, no dysuria and/or hematuria. No abdominal pain. No fever, no chills. No feeling of incomplete bladder emptying. The patient reports she is due for labs for her cigarette making machine hopper feeder. ROS: GENITOURINARY: See HPI. The patient reports she has had a slow, weak urinary stream for the past 2-3months, without any urinary tract infection symptoms, no dysuria, hematuria, nor increased urinary frequency or urgency. ENDOCRINOLOGY: See HPI. The patient has a long-standing history of type 2 diabetes and is currently on glipizide 5 mg twice daily which is not controlling her blood sugars at present. MUSCULOSKELETAL: The patient has rheumatoid arthritis, is currently under the care of a cigarette making machine hopper feeder, with stable medication and good control of her symptoms. The following portions of the patient's chart were reviewed in this encounter and updated as appropriate: Tobacco Allergies Meds Med Hx Surg Hx Fam Hx Objective Visit Vitals BP 128/84 (BP Location: Left arm, Patient Position: Sitting) Pulse 88 Temp (!) 35.9 ??C (96.6 ??F) (Temporal) Resp 16 Ht 1.575 m (5' 2) Wt 81.4 kg (179 lb 7.3 oz) SpO2 97% BMI 32.82 kg/m?? Smoking Status Never Smoker BSA 1.89 m?? GENERAL: The patient is alert, orientated, and in no apparent distress. DIAGNOSTICS: Urinalysis, clarity cloudy, glucose 100, leukocytes moderate, urine culture pending. Assessment/Plan Marcial was seen today for follow-up. Diagnoses and all orders for this visit: Type 2 diabetes mellitus with other specified complication, without long-term current use of insulin(Primary) - glipiZIDE (GLUCOTROL) 10 MG tablet; Take 1 tablet (10 mg total) by mouth 2 (two) times a day before meals - lisinopril (PRINIVIL,ZESTRIL) 2.5 MG tablet; Take 1 tablet (2.5 mg total) by mouth 1 (one) time each day Weak urinary stream - Urinalysis with reflex microscopic (clean catch); Future - Urine culture (clean catch); Future Discussed the plan of care with the patient and the patient's . The patient will increase herglipizide to 10 mg p.o. twice daily and continue to closely monitor her blood sugars, diet, and review results in a month. Will repeat a hemoglobin A1c and TSH in April. The patient agrees to start lisinopril 2.5 mg daily for renal protection. The patient will be notified of her urine culture. The patient can consider Cologuard, and the information was mailed to her. The patient can be evaluated as needed by physical therapy for her benign positional vertigo. The patient and her both agree and understand this plan of care. Adriane Patel APRN, LEONARD FALLER documented in this encounter Plan of Treatment Not on filedocumented as of this encounter Results (ABNORMAL) Urine culture (clean catch) (04/01/2018 11:39 AM TREE FALLER) [facility] Method Time Signature Urine Culture Escherichia coli 04/03/2018 IBIS >100,000 cfu/ml 8:14 AM TREE FALLER MEDICAL ([facility]) [facility] Specimen Anatomical Collection Method Collection Time Receive d Time (Source) Location / / Volume Laterality Urine, Clean 04/01/2018 11:39 04/02/2018 Catch AM TREE FALLER 12:[address] [facility] - 03/19 8:14 AM TREE FALLER Patient does not have an Amoxicillin or [...] coli Trimeth/Sulfa <=2/38 mcg/mL: Susceptible Adriane Patel CONDENSER TESTER, GREEN[place]ELT LAB MICROBIOLOGY - GENERA L ORDERABLES Performing Organization Address City/State/ZIP Code Phon e Number [facility] [address] [place] [phone] (ABNORMAL) Urinalysis with reflex microscopic (clean catch) (04/01/2018 11:39 AM TREE FALLER) [facility] Method Time Signature Type COLLECTION HAT 04/01/2018 [facility] 11:52 AM FALLS TREE FALLER Color, Urine STRAW YELLOW 04/01/2018 [facility] 11:52 AM FALLS TREE FALLER Clarity, HAZY (A) CLEAR 04/01/2018 [facility] Urine 11:52 AM FALLS TREE FALLER Glucose, 100 (A) NEGATIVE 04/01/2018 [facility] Urine mg/dL 11:52 AM FALLS TREE FALLER Bilirubin, NEGATIVE NEGATIVE 04/01/2018 [facility] Urine 11:52 AM FALLS TREE FALLER Ketones, NEGATIVE NEGATIVE 04/01/2018 [facility] Urine mg/dL 11:52 AM FALLS TREE FALLER Specific 1.020 1.000 04/01/2018 [facility] [place], ->=1.030 11:52 AM FALLS Urine TREE FALLER Blood, Urine NEGATIVE NEGATIVE 04/01/2018 [facility] 11:52 AM FALLS TREE FALLER pH, Urine 5.0 5.0 - 7.0 04/01/2018 [facility] 11:52 AM FALLS TREE FALLER Protein, NEGATIVE NEGATIVE-TRA 04/01/2018 [facility] Urine CE mg/dL 11:52 AM FALLS TREE FALLER Urobilinogen, 0.2 0.2 - 1.0 04/01/2018 [facility] Urine E.U./dL 11:52 AM FALLS TREE FALLER Nitrite, NEGATIVE NEGATIVE 04/01/2018 [facility] Urine 11:52 AM FALLS TREE FALLER Leukocytes, MODERATE (A) NEGATIVE 04/01/2018 [facility] Urine 11:52 AM FALLS TREE FALLER Specimen Anatomical Collection Method Collection Time Receive d Time (Source) Location / / Volume Laterality Urine (Urine, 04/01/2018 11:39 04/01/2018 Clean Catch) AM TREE FALLER 11:40 AM TREE FALLER Adriane Patel APRN, [place] LAB URINE ORDERABLES Performing Organization Address City/State/ZIP Code Phon e Number [facility] [place] [address] [place] [id number] documented in this encounter Visit Diagnoses Diagnosis Type 2 diabetes mellitus with other spec ified complication, without long-term current use of insulin (HCC) - Primary Weak urinary stream Slowing of urinary stream Weak urinary stream Slowing of urinary stream documented in this encounter Care Teams Parts Control Clerk Relationship Specialty Start Date End Date Adriane Patel APRN, GREENBELT PCP - General 09/22/17 07/06/19 [address] [facility] [place] [address] documented as of this encounter
--- OUTSIDE RECORDS SUMMARY | 2021-09-05 00:15 | XMS_ITS | Encounter Summary ---
:1945 Author Organization [facility] Address [address] [place] [address] Care Team Providers Name Role Phone Ronak Patel MEAL MILLER, SLAT BASKET MAKER HELPER MACHINE Primary Care Provider Reason for Visit Reason Onset Date Comments EKG'S 04/22/2018 Encounter Details Date Type Department Care Team Description 04/22/2018 Telephone [place] Adriane Patel, EKG'S [address] MEAL MILLER, SLAT BASKET MAKER HELPER MACHINE [place], [place] [address] [address] [facility] [address] [phone] [place], [place] [address] Social History Tobacco Use [...] Telephone Encounter - Margareth Sanchez RN - 04/22/2018 3:37 PM CST EKGs printed and at the manager front office for patient to lemon picker, she is aware. NFORMATICS PROGRAMMER Telephone Encounter - Luciana Verena - 04/22/2018 1:39 PM CST Pt called stating she is scheduled to see a insurance compliance analyst at [facility] on Thursday04/26/18 andradha said they would like her last two EKG's, prior to her visit. Call Pt as necessary. NFORMATICS PROGRAMMER documented in this encounter Plan of Treatment Not on filedocumented as of this encounter Visit Diagnoses Not on filedocumented in this encounter Care Teams Fitness And Wellness Director Relationship Specialty Start Date End Date Adriane Patel APRN, SLAT BASKET MAKER HELPER MACHINE PCP - General 09/22/17 07/06/19 [address] [facility] [place] [address] documented as of this encounter
--- OUTSIDE RECORDS SUMMARY | 2021-09-05 00:15 | XMS_ITS | Encounter Summary ---
:1945 Author Organization [facility] Address [address] [place] [address] Care Team Providers Name Role Phone Ronak Patel RETORT FEEDER GROUND BONE, ENTRY LEVEL SALES ASSOCIATE Primary Care Provider Encounter Details Date Type Department Care Team Description 04/08/2018 Orders Only [place] Adriane Patel Subclinical hypothyroidism ( Primary Dx); [address] M, RETORT FEEDER GROUND BONE, LEONARD Type 2 diabetes mellitus with other spec ified complication, without long-term current use of insulin (HCC) [place], [place] [address] [facility] [address] [address] [place] [address] Social History Tobacco Use Types Packs/Day Years [...] documented as of this encounter Progress Notes Adriane Patel APRN, ENTRY LEVEL SALES ASSOCIATE - 04/08/2018 7:38 AM CST The patient is due for HGB A1c in April along with a TSH. RECEIVING CLERK documented in this encounter Plan of Treatment Not on filedocumented as of this encounter Results TSH (04/22/2018 10:33 AM RUG RECEIVING CLERK) P athologist Signature TSH, Sensitive 2.05 0.46 - 04/22/2018 IBIS MEDICA L 4.68 mIU/L 8:41 PM RUG RECEIVING CLERK [facility] Comment: The results from this [...] Blood (Blood, 04/22/2018 10:33 04/22/2018 Venous) AM RUG RECEIVING CLERK 6:52 PM RUG RECEIVING CLERK Adriane Patel APRN, CNP LAB BLOOD ORDERABLES Performing Organization Address City/State/ZIP Code Phon e Number [facility] [address] [place] [phone] (ABNORMAL) Hemoglobin A1c (04/22/2018 10:33 AM RUG RECEIVING CLERK) Analysis Performed At Patho logist Time Signature Hemoglobin A1C 9.0 (H) 4.0 - 5.6 04/22/2018 IBIS % A1C 7:27 PM RUG RECEIVING CLERK [facility] Comment: Reference Range 4.0-5.6% [...] Blood (Blood, 04/22/2018 10:33 04/22/2018 Venous) AM RUG RECEIVING CLERK 6:52 PM RUG RECEIVING CLERK Adriane Patel APRN, ENTRY LEVEL SALES ASSOCIATE LAB BLOOD ORDERABLES Performing Organization Address City/State/[facility] Code Phon e Number [facility] [address] [place] [address] documented in this encounter Visit Diagnoses Diagnosis Subclinical hypothyroidism - Primary Other specified acquired hypothyroidism Type 2 diabetes mellitus with other spec ified complication, without long-term current use of insulin (HCC) documented in this encounter Care Teams Pmp Project Manager Relationship Specialty Start Date End Date Adriane Patel APRN, ENTRY LEVEL SALES ASSOCIATE PCP - General 09/22/17 07/06/19 100 [place] [address] documented as of this encounter
--- OUTSIDE RECORDS SUMMARY | 2021-09-05 00:15 | XMS_ITS | Encounter Summary ---
:1945 Author Organization [facility] Address [address] [place] [address] Care Team Providers Name Role Phone Ronak Patel CRYPTOGRAPHIC CENTER SPECIALIST, JANITORIAL ACCOUNT MANAGER Primary Care Provider Encounter Details Date Type Department Care Team Description 05/26/2018 Orders Only [place] Adriane Patel, Type 2 diabetes [address] CRYPTOGRAPHIC CENTER SPECIALIST, JANITORIAL ACCOUNT MANAGER mellitus with other [place] [address] specified [address] [place] [address] complication, without [phone] long-ter m current use of insulin (HCC [...] of this encounter Results (ABNORMAL) Hemoglobin A1c (06/24/2018 10:45 AM CDT) Analysis Performed At Patho logist Time Signature Hemoglobin A1C 8.5 (H) 4.0 - 5.6 06/24/2018 [place] % A1C 5:31 PM CDT [facility] Comment: Reference Range 4.0-5.6% is [...] CDT 5:00 PM CDT Adriane Patel APRN, CNP LAB BLOOD ORDERABLES Performing Organization Address City/State/ZIP Code Phon e Number [facility] [address] [place] [address] documented in this encounter Visit Diagnoses Diagnosis Type 2 diabetes mellitus with other spec ified complication, without long-term current use of insulin (HCC) - Primary documented in this encounter Care Teams Metal Fitters And Machinists Relationship Specialty Start Date End Date Adriane Patel APRN, JANITORIAL ACCOUNT MANAGER PCP - General 09/22/17 07/06/19 100 [place] [address] documented as of this encounter
--- OUTSIDE RECORDS SUMMARY | 2021-09-05 00:15 | XMS_ITS | Encounter Summary ---
:1945 Author Organization [facility] Address [address] [place] [address] Care Team Providers Name Role Phone Ronak Patel PROFESSOR OF RHETORIC, COMPOSITION MOLDER Primary Care Provider Reason for Visit Reason Comments Med Refill Encounter Details Date Type Department Care Team Description 06/21/2018 Refill [place] Adriane Patel, Hypothyroidism, [address] PROFESSOR OF RHETORIC, COMPOSITION MOLDER unspecified type [place], [place] [address] [address] [facility] [address] (Primary Dx) [phone] [place], [place] [address] Social History Tobacco Use [...] or relatives? How often do you attend roman catholic or More than 4 times per year 12/23/2018 faith services? Do you belong to any clubs or No 12/23/2018 organizations such as roman catholic groups, unions, fraternal or athletic groups, or [...] this encounter Miscellaneous Notes Telephone Encounter - Huma Reich MA - 06/23/2018 10:33 AM CDT Levothyroxine 75mcg #90, +3 refills 03/25/2017 Last office visit for review 10/29/2017 Last in office visit 04/22/2018 No future appt scheduled Component Latest Ref Rng & Units 04/22/2018 TSH 0.46 - 4.68 mIU/L 2.05 documented in this encounter Plan of Treatment Not on filedocumented as of this encounter Visit Diagnoses Diagnosis Hypothyroidism, unspecified type - Prima ry documented in this encounter Care Teams Manager Lpn Relationship Specialty Start Date End Date Adriane Patel, PROFESSOR OF RHETORIC, COMPOSITION MOLDER PCP - General 09/22/17 07/06/19 100 [facility] [place] [address] documented as of this encounter
--- OUTSIDE RECORDS SUMMARY | 2021-09-05 00:15 | XMS_ITS | Encounter Summary ---
:1945 Author Organization [facility] Address [address] [place] [address] Care Team Providers Name Role Phone Ronak Patel MANAGER PE, ELECTION CLERK Primary Care Provider Reason for Visit Reason Onset Date Comments NEW RX 03/23/2018 Encounter Details Date Type Department Care Team Description 03/23/2018 Telephone [place] Adriane Patel, NEW RX [address] MANAGER PE, ELECTION CLERK [place], [place] [address] [address] [facility] [address] [phone] [place], [place] [address] Social History Tobacco Use [...] or relatives? How often do you attend pentecostal or More than 4 times per year 12/23/2018 restorationist services? Do you belong to any clubs or No 12/23/2018 organizations such as pentecostal groups, unions, fraternal or athletic groups, or [...] Encounter - Ana Cristina Prado MA - 03/24/2018 9:12 AM CST Patient states Suresh wanted her to monitor her blood pressure. She has been runnin/74 120/71 128/73 156/80 116/65 131/75 140/74 174/81 138/67 127/74 157/81 111/63. Patient also advised to monitor her blood sugars for 2 weeks and get back to us. E ADVISOR Telephone Encounter - Adriane Patel APRN, LEONARD - 03/23/2018 4:42 PM STYLE ADVISOR The patient can just discontinue the Januvia, as we increased her Glipizide, lets have her continue to monitor blood sugars x 2 weeks and then call us. Thanks, Suresh E ADVISOR Telephone Encounter - Ana Cristina Pardo MA - 03/23/2018 4:30 PM CST Please advise E ADVISOR Telephone Encounter - Di Sloan - 03/23/2018 4:18 PM CST Suresh was going to put her on a new Rx once she was done. She is done now and would like to know what she should be on now. She uses [facility] and would like a call back so she knows what plan B is. E ADVISOR documented in this encounter Plan of Treatment Not on filedocumented as of this encounter Visit Diagnoses Not on filedocumented in this encounter Care Teams Rfid Analyst Relationship Specialty Start Date End Date Adriane Patel APRN, ELECTION CLERK PCP - General 09/22/17 07/06/19 [address] [place] [address] documented as of this encounter
--- OUTSIDE RECORDS SUMMARY | 2021-09-05 00:15 | XMS_ITS | Encounter Summary ---
:[address] [facility] Address [address] [place] [address] Care Team Providers Name Role Phone Ronak Patel APRN, SPOOLING OPERATOR Primary Care Provider Reason for Visit Reason Comments Medication Visit Shortness of Breath Encounter Details Date Type Department Care Team Description 04/22/2018 Office Visit [place] Adriane Patel Type 2 diabetes mellitus wit hout complication, without long- term current use of insulin (HCC) (Primary Dx); [address] M, LEONARD RESENDEZ Dyspnea on exertion; [place], [place] [address] Hyperlipidemia, unspecified hyperlipidem ia type [address] [place], [place] [phone] [address] Social History Tobacco Use Types Packs/Day Years [...] Sign Reading Time Taken Comments Blood Pressure 122/80 04/22/2018 9:34 AM MARKETING FINANCE SPECIALIST Pulse 81 04/22/2018 9:34 AM MARKETING FINANCE SPECIALIST Temperature 36.3 ??C (97.4 ??F) 04/22/2018 9:34 AM MARKETING FINANCE SPECIALIST Respiratory Rate 16 04/22/2018 9:34 AM MARKETING FINANCE SPECIALIST Oxygen Saturation 99% 04/22/2018 9:34 AM MARKETING FINANCE SPECIALIST Inhaled Oxygen Concentration - - Weight 81.9 kg (180 lb 8.9 oz) 04/22/2018 9:34 AM MARKETING FINANCE SPECIALIST Height 161 cm (5' 3.39) 04/22/2018 9:34 AM MARKETING FINANCE SPECIALIST Body Mass Index 31.6 04/22/2018 9:34 AM MARKETING FINANCE SPECIALIST documented in this encounter Patient Instructions Patient InstructionsChgarfield Patel APRN, CNP - 04/22/2018 9:20 AM MARKETING FINANCE SPECIALIST Crestor 2.5 mg daily Call schedule cardiology appointment Januvia 50 mg daily in addition to Glipizide 10 mg twice daily Baby aspirin ETING FINANCE SPECIALIST documented in this encounter Progress Notes Adriane Patel APRN, CNP - 04/22/2018 9:20 AM CST Estab Patient Visit Subjective Patient ID: Marcial Adams is a 72 y.o. female presenting for the following concerns. Chief Complaint Patient presents with ??? Medication Visit ??? Shortness of Breath HPI: The patient is a pleasant 72-year-old female presenting ambulatory to the clinical setting today to discuss her type 2 diabetes. The patient has a long- standing history of type 2 diabetes and is on glipizide 10 mg twice daily. The patient was diagnosed with rheumatoid arthritis last year, having several IV steroid infusions, which caused fluctuations in her blood sugars, and maintaining stable blood sugars was challenging. The patient feels her RA symptoms are controlled on her stable current medication treatment. The patient's hemoglobin A1c on 02/15/2018 was 8.2. The patient had previously been on glipizide 5 mg twice daily and Januvia 50 mg daily which was not renewed in March 19, as the costto the patient in February was $430. The patient reports she has now reached her out of pocket medication deductible, Januvia would cost significantly less, and she is here to reconsider, as her blood sugars have escalated, since discontinuing the Januvia in March. The patient does a diligent job ofkeeping track of her blood sugars, has been compliant, and calls into the clinical setting appropriately with concerns. The patient had one blood sugar last evening at 505 at 6 PM, despite eating a healthy diet. The patient reports when her blood sugars are high she feels confused and lightheaded. The patient questions the accuracy of her Accu-Chek machine and brings this in for comparison. Discussedinsulin in the past, and the patient is apprehensive about starting insulin. The patient is no longer on metformin, as her GFR was 44 and 04/01/2018, she was started on a low dose of Lisinopril for renal protection, which she has not started. The patient reports she has been experiencing dyspnea with exertion, and recalls having this even last summer, which is possibly worsening. The patient reports it feels like it did, before she had her cardiac stents placed. The patient noticed dyspnea, and a ???funny feeling,?? 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 The patient denies chest pain but rather a sensation, her shoulders are affected, as she points to her anterior shoulders. The patient feels lightheaded and dizzy at times, and particularly when bending over, which may be related to positional vertigo, and has modified her activities; the patient feels these symptoms are predominately in the morning. The patient reports she continues to ambulate up stairs, 10 stairs or more from her basement, without seeminglyfeeling short of breath. The patient denies any palpitations, syncope, and/or presyncope. The patient does have swelling in her hands from her rheumatoid arthritis, no lower extremity edema. The patient is no longer on a beta-rich, nor statin medication, as she as she felt these medications were causing vivid, bad dreams, to the point she was hitting her . The patient reports her bad dreamsresolved after discontinuing the Metoprolol and statin medications. The patient reports when she was receiving her IV infusion, for her rheumatoid arthritis yesterday, the nurse noticed felt swelling in the right antecubital area. She patient reports she has no knowledge of hurting herself, has never noticed the protrusion, with no skin color changes nor pain. ROS: CARDIOVASCULAR: See HPI. The patient has been experiencing dyspnea with exertion, possibly since last summer, which she does not necessarily think is worsening. The patient has associated lightheadedness and dizziness particularly in the morning and when bending over, which could be vertigo. No chest pain, pressure, but the patient has a funny feeling in her anterior shoulders bilaterally at times. No palpitations, presyncope, syncope, and/or cardiac murmurs. The patient denies any lower extremity edema, but rather edema in her hands from her RA. RESPIRATORY: See HPI. The patient has been experiencing dyspnea with exertion without a cough, asthma, and/or wheezing, since last summer, and is uncertain if this is worsening. GENITOURINARY: The patient's urinary tract infection symptoms have improved. ENDOCRINOLOGY: See HPI. The patient's type 2 diabetes which is not controlled after discontinuing the Januvia. MUSCULOSKELETAL: See HPI. The patient feels rheumatoid arthritis is under good control. The patient has a palpable protrusion in her right antecubital area, which was first noticed yesterday, by a nurse starting an IV infusion. No skin color changes. HEMATOLOGY: The patient has anemia, of unknown etiology, and will be proceeding the Cologuard testing; the forms have been completed. The following portions of the patient's chart were reviewed in this encounter and updated as appropriate: Tobacco Allergies Meds Problems Med Hx Surg Hx Fam Hx Soc Hx Objective Visit Vitals BP 122/80 (BP Location: Left arm, Patient Position: Sitting) Pulse 81 Temp 36.3 ??C (97.4 ??F) (Temporal) Resp 16 Ht 1.61 m (5' 3.39) Wt 81.9 kg (180 lb 8.9 oz) SpO2 99% BMI 31.60 kg/m?? Smoking Status Never Smoker BSA 1.91 m?? GENERAL: The patient is alert, orientated, and in no apparent distress. CARDIOVASCULAR: Normal heart rate and rhythm. No murmur. No peripheral edema. Positive peripheral pulses, x4. RESPIRATORY: Lungs are clear, bilaterally. No wheezing. MUSCULOSKELETAL: The patient has a soft tissue protrusion, approximately 5 x 5 cm overlying the right medial elbow area, with a corresponding soft tissue protrusion overlying the left antecubital area. DIAGNOSTICS: EKG, CBC with differential, Chem-8, chest x-ray, glucose comparison to the patient's Accu-Chek machine. EKG compared to her previous EKG on October 29, 2017, there are nonspecific T waveabnormalities, flattening particularly in her lateral leads. Lab Results Component Value Date WBC 7.3 04/22/2018 HGB 11.0 (L) 04/22/2018 HCT 33.7 (L) 04/22/2018 MCV 90.6 04/22/2018 PLT 196 04/22/2018 Lab Results Component Value Date GLUCOSE 204 (H) 04/22/2018 CALCIUM 9.4 04/22/2018 NA 141 04/22/2018 K 3.5 04/22/2018 CO2 28 04/22/2018 CL 108 (H) 04/22/2018 BUN 20 04/22/2018 CREATININE 1.1 04/22/2018 Assessment/Plan Marcial was seen today for medication visit and shortness of breath. Diagnoses and all orders for this visit: Type 2 diabetes mellitus without complication, without long-term current use of insulin (Primary) - SITagliptin (JANUVIA) 50 MG tablet; Take 1 tablet (50 mg total) by mouth 1 (one) time each day - Cancel: Glucose, fasting; Future Dyspnea on exertion - X-ray Chest 2 Views; Future - ECG 12 lead - CBC Branch Off w/Diff; Future - Basic metabolic panel; Future - Troponin I; Future - X-ray Chest 2 Views Hyperlipidemia, unspecified hyperlipidemia type - rosuvastatin (CRESTOR) 5 MG tablet; Take 0.5 tablets (2.5 mg total) by mouth 1 (one) time eachday Discussed the plan of care with the patient. Prescribed Januvia 50 mg daily, and if this does not control her blood sugars, she may have to consider insulin, as the Januvia dose should not be increasedsecondary to her GFR, renal function. The patient will continue to monitor her blood sugars. The patient's Accu-Chek machine was compared to the lab draw; Accu-Chek was 209, lab 204, comparable numbers, confirming the accuracy of her machine. The patient understands her dyspnea on exertion is concerning for angina equivalent, particularly with the subtle EKG changes. The patient is on a baby aspirin.She did agree to start Crestor 2.5 mg daily and lisinopril 2.5 mg daily as previously prescried. The patient has an established patent counsel, through the [facility], and recommend she call and schedule an appointment when she returns home, if she cannot be facilitate an appointment she will notify me today. The patient will continue with Cologuard testing, declining a colonoscopy, as the patient had concerns for perforation. The patient agrees and understands plan of care. Adriane Patel APRN, CNP documented in this encounter Plan of Treatment Not on filedocumented as of this encounter Procedures Procedure Name Priority Date/Time Associated Diagnosis Comme nts ECG 12-LEAD Routine 04/22/2018 11:00 AM Dyspnea on exertion R esults for this MARKETING FINANCE SPECIALIST procedure are i n the results section. XR CHEST 2 VIEWS Routine 04/22/2018 10:53 AM Dyspnea on exerti on Results for this MARKETING FINANCE SPECIALIST procedure are i n the results section. documented in this encounter Results ECG 12 lead (04/22/2018 11:00 AM MARKETING FINANCE SPECIALIST) Specimen (Source) Anatomical Collection Method Collection Time Re ceived Time Location / / Volume Laterality 04/22/2018 11:00 AM MARKETING FINANCE SPECIALIST Narrative 04/22/2018 12:00 AM MARKETING FINANCE SPECIALIST This result has an attachment that is no t available. EKG performed in clinic. Patient tolerat ed well. Paper copy sent for interpretation. Adriane Patel APRN, LEONARD ECG ORDERABLES X-ray Chest 2 Views (04/22/2018 10:53 AM MARKETING FINANCE SPECIALIST) Anatomical Region Laterality Modality Body Radiographic Imaging Specimen (Source) Anatomical Collection Method Collection Time Re ceived Time Location / / Volume Laterality 04/22/2018 10:53 AM MARKETING FINANCE SPECIALIST Impressions 04/22/2018 11:04 AM MARKETING FINANCE SPECIALIST IMPRESSION: No acute abnormality. Narrative 04/22/2018 11:04 AM MARKETING FINANCE SPECIALIST INDICATION: dyspnea with extertion COMPARISON: Chest x-ray October 29, 2017 FINDINGS: CHEST 2 VIEWS No pulmonary vascular cephalization. Hea rt size is top-normal. ?? The lungs show no confluent infiltrate. ??No pneum othorax or pleural effusion. ?? Calcification and mild descending tortuo sity are again seen in the aorta. ?? Postoperative change is re-demonstrated at the right shoulder. Procedure Note Chantal Ray MD - 04/22/2018 INDICATION: dyspnea with extertion COMPARISON: Chest x-ray October 29, 2017 FINDINGS: CHEST 2 VIEWS No pulmonary vascular cephalization. Hea rt size is top-normal. The lungs show no confluent infiltrate. No pneumo thorax or pleural effusion. Calcification and mild descending tortuo sity are again seen in the aorta. Postoperative change is re-demonstrated at the right shoulder. IMPRESSION: No acute abnormality. Adriane Patel NAME PLATE STAMPER, SPOOLING OPERATOR IMG XR PROCEDURES Troponin I (04/22/2018 10:33 AM MARKETING FINANCE SPECIALIST) athologist Signature Troponin I <0.012 0.012 - 04/22/2018 [facility] 0.034 ng/mL 7:24 PM MARKETING FINANCE SPECIALIST [facility] Comment: Note Reference Value Range [...] Blood (Blood, 04/22/2018 10:33 04/22/2018 Venous) AM MARKETING FINANCE SPECIALIST 6:52 PM MARKETING FINANCE SPECIALIST Adriane Patel APRN, LEONARD LAB BLOOD ORDERABLES Performing Organization Address City/State/ZIP Code Phon e Number [facility] [address] [place] [phone] (ABNORMAL) Basic metabolic panel (04/22/2018 10:33 AM MARKETING FINANCE SPECIALIST) P athologist Signature Sodium 141 135 - 145 04/22/2018 [facility] mmol/L 12:40 PM MARKETING FINANCE SPECIALIST [place] Potassium 3.5 3.5 - 5.1 04/22/2018 [facility] mmol/L 12:40 PM MARKETING FINANCE SPECIALIST [place] Comment: . Chloride 108 (H) 98 - 107 mmol/L 04/22/2018 12:40 PM MARKETING FINANCE SPECIALIST [facility] [place] Comment: . CO2 28 22 - 29 mmol/L 04/22/2018 12:40 PM MARKETING FINANCE SPECIALIST [facility] [place] Comment: . Creatinine 1.1 0.4 - 1.2 mg/dL 04/22/2018 12:40 PM MARKETING FINANCE SPECIALIST [facility] [place] [place] Comment: . BUN 20 5 - 25 mg/dL 04/22/2018 12:40 PM MARKETING FINANCE SPECIALIST [facility] [place] [place] Comment: . Glucose 204 (H) 70 - 100 mg/dL 04/22/2018 12:40 PM [facility] [place] MARKETING FINANCE SPECIALIST Calcium, Total,S 9.4 8.4 - 10.2 mg/dL 04/22/2018 12:40 PM [facility] [place] MARKETING FINANCE SPECIALIST Comment: . Fasting? No 04/22/2018 12:38 PM MARKETING FINANCE SPECIALIST [facility] [place] Comment: 1+ lipemic Specimen Anatomical Collection Method Collection Time Receive d Time (Source) Location / / Volume Laterality Blood (Blood, 04/22/2018 10:33 04/22/2018 Venous) AM MARKETING FINANCE SPECIALIST 12:38 PM MARKETING FINANCE SPECIALIST Adriane M Patel NAME PLATE STAMPER, SPOOLING OPERATOR LAB BLOOD ORDERABLES Performing Organization Address City/State/ZIP Code Phon e Number [facility] [place] [address] [place] [address] (ABNORMAL) CBC Branch Off w/Diff (04/22/2018 10:33 AM MARKETING FINANCE SPECIALIST) [facility] Method Time Signature WBC 7.3 3.5 - 10.5 04/22/2018 [facility] K/uL 12:43 PM MARKETING FINANCE SPECIALIST [place] RBC 3.72 (L) 3.90 - 04/22/2018 [facility] 5.00 M/uL 12:43 PM MARKETING FINANCE SPECIALIST [place] Hemoglobin 11.0 (L) 12.0 - 04/22/2018 [facility] 15.5 g/dL 12:43 PM MARKETING FINANCE SPECIALIST [place] Hematocrit 33.7 (L) 35.0 - 04/22/2018 [facility] [place] 44.0 % 12:43 PM MARKETING FINANCE SPECIALIST [place] Platelets 196 150 - 450 04/22/2018 [facility] [place] K/uL 12:43 PM MARKETING FINANCE SPECIALIST [place] MCV 90.6 81.6 - 04/22/2018 [facility] [place] 98.3 fL 12:43 PM MARKETING FINANCE SPECIALIST [place] MCH 29.6 26.0 - 04/22/2018 [facility] [place] 32.0 pg 12:43 PM MARKETING FINANCE SPECIALIST [place] MCHC 32.6 32.0 - 04/22/2018 [facility] [place] 36.0 g/dL 12:43 PM MARKETING FINANCE SPECIALIST [place] RDW 12.9 11.9 - 04/22/2018 [facility] [place] 15.5 % 12:43 PM MARKETING FINANCE SPECIALIST [place] Lymphocytes % 14.7 (L) 18.0 - 04/22/2018 C [place] 45.0 % 12:43 PM MARKETING FINANCE SPECIALIST [place] Mid-size Cells 10.4 (H) 3.3 - 10.1 04/22/2018 [facility] [place] % 12:43 PM MARKETING FINANCE SPECIALIST [place] Granulocytes/Jean Claude 74.9 (H) 45.8 - 04/22/2018 [facility] [place] trophils 73.7 % 12:43 PM MARKETING FINANCE SPECIALIST [place] Lymphocytes 1.1 0.9 - 2.9 04/22/2018 [facility] Absolute K/uL 12:43 PM MARKETING FINANCE SPECIALIST [place] MIDS Absolute 0.8 0.2 - 0.8 04/22/2018 [facility] K/uL 12:43 PM MARKETING FINANCE SPECIALIST [place] Granulocytes/Jean Claude 5.4 2.1 - 8.7 04/22/2018 [facility] trophils K/uL 12:43 PM MARKETING FINANCE SPECIALIST [place] Absolute Specimen Anatomical Collection Method Collection Time Receive d Time (Source) Location / / Volume Laterality Blood (Blood, 04/22/2018 10:33 04/22/2018 Venous) AM MARKETING FINANCE SPECIALIST 12:38 PM MARKETING FINANCE SPECIALIST Adriane Patel APRN, SPOOLING OPERATOR LAB BLOOD ORDERABLES Performing Organization Address City/State/ZIP Code Phon e Number [facility] [place] [address] [place] [id number] documented in this encounter Visit Diagnoses Diagnosis Type 2 diabetes mellitus without complic ation, without long-term current use of insulin (HCC) - Primary Dyspnea on exertion Other dyspnea and respiratory abnormalit y Hyperlipidemia, unspecified hyperlipidem ia type documented in this encounter Care Teams Communications Designer Relationship Specialty Start Date End Date Adriane Patel APRN, SPOOLING OPERATOR PCP - General 09/22/17 07/06/19 [address] [facility] [place] [address] documented as of this encounter
--- OUTSIDE RECORDS SUMMARY | 2021-09-05 00:15 | XMS_ITS | Encounter Summary ---
:1945 Author Organization [facility] Address [address] [place] [address] Care Team Providers Name Role Phone Ronak Patel HEEL DIPPER, ROLLER PRINTING SUPERVISOR Primary Care Provider Encounter Details Date Type Department Care Team Description 05/24/2018 Lab [place] Type 2 diabetes mellitus wit h other specified complication, without long-term current use of insulin (HCC); [address] [place], [place] [address] Social History Tobacco Use [...] Associated Diagnosis Comme nts HEMOGLOBIN A1C Routine 05/24/2018 11:44 AM Type 2 diabetes Res ults for this CDT mellitus with other procedur e are in the specified results section . complication, without long-term current use of insulin (HCC) URINE CULTURE Routine 05/24/2018 11:33 AM Dysuria Results for this CDT procedure are i n the results section . documented in this encounter Results (ABNORMAL) Hemoglobin A1c (05/24/2018 11:44 AM CDT) Analysis Performed At Patho logist Time Signature Hemoglobin A1C 8.5 (H) 4.0 - 5.6 05/25/2018 [place] % A1C 1:14 PM CDT [facility] Comment: Reference Range 4.0-5.6% is [...] CDT 12:36 PM CDT Adriane Patel APRN, ROLLER PRINTING SUPERVISOR LAB BLOOD ORDERABLES Performing Organization Address City/[facility]/ZIP Code Phon e Number [facility] [address] [place] [phone] Urine culture (05/24/2018 11:33 AM CDT) Patholo gist Method Time Signature Urine Culture No Growth 05/25/2018 [place] 1:20 PM T [facility] Specimen Anatomical Collection Method Collection Time Receive d Time (Source) Location / / Volume Laterality Urine, Clean 05/24/2018 11:33 05/25/2018 [place] AM CDT 1:09 PM CDT Narrative [facility] - 10/2018 1:20 PM CDT Patient does not have an Amoxicillin or PCN allergy Sanam Darnell APRN, ROLLER PRINTING SUPERVISOR LAB MICROBIOLOGY - GENERAL O RDERABLES Performing Organization Address City/State/ZIP Code Phon e Number [facility] [address] [place] [phone] documented in this encounter Visit Diagnoses Diagnosis Type 2 diabetes mellitus with other spec ified complication, without long-term current use of insulin (HCC) Dysuria documented in this encounter Care Teams Storekeeper Steward Relationship Specialty Start Date End Date Adriane Patel APRN, ROLLER PRINTING SUPERVISOR PCP - General 09/22/17 07/06/19 [address] [facility] [place] [address] documented as of this encounter
--- OUTSIDE RECORDS SUMMARY | 2021-09-05 00:16 | XMS_ITS | Encounter Summary ---
:1945 Author Organization [facility] Address [address] [place] [address] Care Team Providers Name Role Phone Ronak Patel ELECTRICAL DESIGN ENGINEER, SIGN ARTIST Primary Care Provider Reason for Visit Reason Onset Date Comments Medication side effect 12/02/2017 Encounter Details Date Type Department Care Team Description 12/02/2017 Telephone [place] Adriane Patel, Medication side effect [address] ELECTRICAL DESIGN ENGINEER, SIGN ARTIST [place], [place] [address] [address] [phone] [place], [place] [address] Social History Tobacco [...] Telephone Encounter - Lana Knight LPN - 12/03/2017 1:52 PM CDT The patient has been informed. Telephone Encounter - Adriane Patel NP - 12/03/2017 1:03 PM CDT Let us not change any medications at this time will go through with the EGD and colonoscopy to determine if that can give us some insight as to why she is have diarrhea for an extended period of time. Telephone Encounter - Lana Knight LPN - 12/03/2017 8:14 AM CDT Patient thinks that it is her Januvia causing the diarrhea to occur? Is this possible? When she started back on it 10/03/2017 After stopping it in July. DEXA: Last 08/05/2016 Through [facility] [place]: Samples from rheumatology had been getting her by but than [facility], she would like to try and run it again now to see if the cost has decreased. Telephone Encounter - Phoebe Donohue - 12/02/2017 4:26 PM CDT Patient would like to speak to a nurse about side effects of medication. documented in this encounter Plan of Treatment Not on filedocumented as of this encounter Visit Diagnoses Not on filedocumented in this encounter Care Teams Motion Designer Relationship Specialty Start Date End Date Adriane Patel, ELECTRICAL DESIGN ENGINEER, SIGN ARTIST PCP - General 09/22/17 07/06/19 [address] [place] [id number] documented as of this encounter
--- OUTSIDE RECORDS SUMMARY | 2021-09-05 00:16 | XMS_ITS | Encounter Summary ---
:1945 Author Organization [facility] Address [address] [place] [address] Care Team Providers Name Role Phone Ronak Patel SLABBER LIGHT, CYBER SYSTEMS ADMINISTRATOR Primary Care Provider Encounter Details Date Type Department Care Team Description 12/07/2017 Telephone [place] Adriane Patel, [address] SLABBER LIGHT, LEONARD [place], [place] [address] [address] [facility] [address] [phone] [place], [place] [address] Social History Tobacco Use [...] or relatives? How often do you attend buddhism or More than 4 times per year 12/23/2018 religion services? Do you belong to any clubs or No 12/23/2018 organizations such as buddhism groups, unions, fraternal or athletic groups, or [...] encounter Miscellaneous Notes Telephone Encounter - Luciana Eppsdannielle - 12/07/2017 1:34 PM CDT [facility]ammogram [facility]. Telephone Encounter - Adriane Patel NP - 12/07/2017 1:21 PM CDT The patient is inquiring about her mammogram results from [facility], please call and find out if they are available. Thanks Suresh documented in this encounter Plan of Treatment Not on filedocumented as of this encounter Visit Diagnoses Not on filedocumented in this encounter Care Teams Disc Pad Grinding Machine Feeder Relationship Specialty Start Date End Date Adriane Patel, SLABBER LIGHT, CYBER SYSTEMS ADMINISTRATOR PCP - General 09/22/17 07/06/19 100 [place] [address] documented as of this encounter
--- OUTSIDE RECORDS SUMMARY | 2021-09-05 00:16 | XMS_ITS | Encounter Summary ---
:1945 Author Organization [facility] Address [address] [place] [address] Care Team Providers Name Role Phone Ronak Patel SUPERVISOR PROP MAKING, PUBLIC SAFETY POLICE Primary Care Provider Reason for Visit Reason Onset Date Comments fax 01/20/2018 Encounter Details Date Type Department Care Team Description 01/20/2018 Telephone [place] Adriane Patel, fax [address] SUPERVISOR PROP MAKING, [place], [place] [address] [address] [facility] [phone] [place], [place] [address] Social History Tobacco Use [...] Notes Telephone Encounter - Luciana Verena - 01/20/2018 12:12 PM CST Documents faxed to [facility] as requested. TNING ROD ERECTOR Telephone Encounter - Margareth Sanchez RN - 01/20/2018 11:34 AM CST Please fax referral for ultrasound to [facility]. TNING ROD ERECTOR documented in this encounter Plan of Treatment Not on filedocumented as of this encounter Visit Diagnoses Not on filedocumented in this encounter Care Teams County Coroner Relationship Specialty Start Date End Date Adriane Ptael, SUPERVISOR PROP MAKING, PUBLIC SAFETY POLICE PCP - General 09/22/17 07/06/[address] [place] [id number] documented as of this encounter
--- OUTSIDE RECORDS SUMMARY | 2021-09-05 00:16 | XMS_ITS | Encounter Summary ---
:1945 Author Organization [facility] Address [address] [place] [address] Care Team Providers Name Role Phone Ronak Patel GEOTECHNICAL FIELD TECHNICIAN, AIRPLANE MECHANIC APPRENTICE Primary Care Provider Reason for Visit Reason Onset Date Comments referral 12/04/2017 fax Encounter Details Date Type Department Care Team Description 12/04/2017 Telephone [place] Adriane Patel, referral (fax) [address] GEOTECHNICAL FIELD TECHNICIAN, AIRPLANE MECHANIC APPRENTICE [place], [place] [address] [address] [facility] [phone] [place], [place] [address] Social History Tobacco Use [...] Telephone Encounter - Margareth Sanchez RN - 12/04/2017 8:59 AM CDT Noted. Telephone Encounter - Luciana Albarado - 12/04/2017 8:55 AM CDT Referral faxed to [facility] [phone] Surgery/Scope. Telephone Encounter - Margareth Sanchez RN - 12/04/2017 8:36 AM CDT Please fax referral to GI at [facility] in [place]. documented in this encounter Plan of Treatment Not on filedocumented as of this encounter Visit Diagnoses Not on filedocumented in this encounter Care Teams Inspector Packer Glass Container Relationship Specialty Start Date End Date Adriane Patel APRN, AIRPLANE MECHANIC APPRENTICE PCP - General 09/22/17 07/06/[address] [place], [place] [address] [address] documented as of this encounter
--- OUTSIDE RECORDS SUMMARY | 2021-09-05 00:16 | XMS_ITS | Encounter Summary ---
:1945 Author Organization [facility] Address [address] [place] [address] Care Team Providers Name Role Phone Ronak Patel NUTRITION SERVICES AIDE, ADJUNCT COMMUNICATIONS FACULTY MEMBER Primary Care Provider Reason for Visit Reason Onset Date Comments Med Refill 02/17/2018 Encounter Details Date Type Department Care Team Description 02/17/2018 Refill [place] Adriane Patel, MAL, [address] [place], [place] [address] [facility] [address] [phone] [place], [place] [address] Social History Tobacco Use [...] Notes Telephone Encounter - Adriane Patel APRN, ADJUNCT COMMUNICATIONS FACULTY MEMBER - 02/18/2018 8:05 AM REGIONAL REFRIGERATED CDL TRUCK DRIVER Will review the patient's medications during the clinical visit tomorrow, and then order her medications. ONAL REFRIGERATED CDL TRUCK DRIVER Telephone Encounter - Ana Cristina Prado MA - 02/17/2018 2:59 PM CST I have pended a medication refill for your review. ONAL REFRIGERATED CDL TRUCK DRIVER documented in this encounter Plan of Treatment Not on filedocumented as of this encounter Visit Diagnoses Not on filedocumented in this encounter Care Teams Food And Nutrition Services Supervisor Relationship Specialty Start Date End Date Adriane Patel APRN, ADJUNCT COMMUNICATIONS FACULTY MEMBER PCP - General 09/22/17 07/06/19 [address] [facility] [place] [address] documented as of this encounter
--- OUTSIDE RECORDS SUMMARY | 2021-09-05 00:16 | XMS_ITS | Encounter Summary ---
:1945 Author Organization [facility] Address [address] [place] [address] Care Team Providers Name Role Phone Ronak Patel ADOPTION AGENT, AIR QUALITY MANAGER Primary Care Provider Encounter Details Date Type Department Care Team Description 11/30/2017 Lab [place] Vitamin D deficiency; [address] Renal insufficiency [place], [place] [address] Social History Tobacco Use [...] Date/Time Associated Diagnosis Comme nts GLOMERULAR Routine 11/30/2017 12:38 Renal insufficiency Resu lts for this FILTRATION RATE PM CDT procedure ar e in the results section. VITAMIN D, TOTAL Routine 11/30/2017 12:38 Vitamin D deficiency Results for this PM CDT procedure are i n the results section. BASIC METABOLIC Routine 11/30/2017 12:38 Renal insufficiency R esults for this PANEL PM CDT procedure are i n the results section. documented in this encounter Results (ABNORMAL) Glomerular filtration rate (GFR) (11/30/2017 12:38 PM CDT) P athologist Signature GFR 54 (A) 11/30/2017 [facility] 1:13 PM CDT [facility] >60 11/30/2017 [facility] Albanian GFR 1:13 PM CDT [facility] Comment: GFR calculated from serum creatinine v alue Chronic Kidney Disease less than 60 mL/m in/1.73 m2 Kidney Failure less than 15 mL/min/1.73 m2 Note: effective 07/01/06 IDMS-Traceable MDRD Study Equation used. Specimen Anatomical Collection Method Collection Time Receive d Time (Source) Location / / Volume Laterality 11/30/2017 12:38 11/30/2017 PM CDT 12:38 PM CDT Adriane Patel APRN, AIR QUALITY MANAGER LAB BLOOD ORDERABLES Performing Organization Address City/State/ZIP Code Phon e Number [facility] [address] [place] [address] (ABNORMAL) Basic metabolic panel (11/30/2017 12:38 PM CDT) P athologist Signature Sodium 139 135 - 145 11/30/2017 [facility] mmol/L 1:13 PM CDT [place] Potassium 3.6 3.5 - 5.1 11/30/2017 [facility] mmol/L 1:13 PM CDT [place] Comment: . Chloride 102 98 - 107 mmol/L 11/30/2017 1:13 PM CDT [facility] [place] Comment: . CO2 30 (H) 22 - 29 mmol/L 11/30/2017 1:13 PM CDT [facility] [place] Comment: . Creatinine 1.0 0.4 - 1.2 mg/dL 11/30/2017 1:13 PM CDT [facility] [place] Comment: . BUN 20 5 - 25 mg/dL 11/30/2017 1:13 PM CDT [facility] [place] Comment: . Glucose 149 (H) 70 - 100 mg/dL 11/30/2017 1:13 PM [facility] [place] CDT Calcium, Total,S 9.7 8.4 - 10.2 mg/dL 11/30/2017 1:13 PM [facility] [place] CDT Comment: . Fasting? No 11/30/2017 12:41 PM CDT [facility] [place] Specimen Anatomical Collection Method Collection Time Receive d Time (Source) Location / / Volume Laterality Blood (Blood, 11/30/2017 12:38 11/30/2017 Venous) PM CDT 12:38 PM CDT Adriane Patel APRN, AIR QUALITY MANAGER LAB BLOOD ORDERABLES Performing Organization Address City/[facility]/ZIP Code Phon e Number [facility] [place] [address] [place] [address] Vitamin D, Total (11/30/2017 12:38 PM CDT) athologist Signature Vitamin D, 48.7 ng/mL 12/01/2017 [facility] 2:18 PM CDT [facility] Comment: ---- Deficient ?<20 ? ng/mL Insufficient ? 20-<30 ??ng/mL Sufficient ? 30-100 ??ng/mL Vitamin D2/D3 fractionation is recommend ed at the discretion of the clinician if Total Vitamin D is w ithin deficient or insufficient range. Specimen Anatomical Collection Method Collection Time Receive d Time (Source) Location / / Volume Laterality Blood (Blood, 11/30/2017 12:38 12/01/2017 Venous) PM CDT 12:59 PM CDT Adriane Patel APRN, AIR QUALITY MANAGER LAB BLOOD ORDERABLES Performing Organization Address City/[facility]/ZIP Code Phon e Number [facility] [address] [place] [address] documented in this encounter Visit Diagnoses Diagnosis Vitamin D deficiency Renal insufficiency Unspecified disorder of kidney and urete r documented in this encounter Care Teams Leather Crafter Relationship Specialty Start Date End Date Adriane Patel APRN, AIR QUALITY MANAGER PCP - General 09/22/17 07/06/19 [address] [place], [place] [address] documented as of this encounter
--- OUTSIDE RECORDS SUMMARY | 2021-09-05 00:16 | XMS_ITS | Encounter Summary ---
:1945 Author Organization [facility] Address [address] [place] [address] Care Team Providers Name Role Phone Unavailable Primary Care Provider Unavailable Encounter Details Date Type Department Care Team Description 11/18/2013 Hospital Encounter [facility] Ifeoma Qugiley opausal bleeding Radiology [address] [place] [address] Social History Tobacco Use Types Packs/Day Years Used Date Never Assessed Alcohol Habits Answer Date Recorded How often [...] or relatives? How often do you attend restoration or More than 4 times per year 12/23/2018 rastafarian services? Do you belong to any clubs or No 12/23/2018 organizations such as restoration groups, unions, fraternal or athletic groups, or [...] on file documented as of this encounter Medications at Time of Discharge Medication Sig Dispensed Refills Start Date End Date aspirin 81 MG tablet Take 81 mg by mouth 0 201212/30/2017 documented as of this encounter Plan of Treatment Not on filedocumented as of this encounter Procedures Procedure Name Priority Date/Time Associated Comments Diagnosis US PELVIS INCLUDING Routine 11/18/2013 9:19 Resu lts for this TRANSVAGINAL AM CDT procedure are i n the results section. documented in this encounter Results Ultrasound pelvis including transvaginal (11/18/2013 9:19 AM CDT) Anatomical Region Laterality Modality Body, Pelvis Ultrasound Specimen (Source) Anatomical Collection Method Collection Time Re ceived Time Location / / Volume Laterality 11/18/2013 9:19 AM CDT Narrative 11/18/2013 9:24 AM CDT Clinical History postmenopausal bleeding Comparison None. Findings The uterus measures 6.5 x 2.5 x 3.3 cm. ??Small calcified fibroid is present within the myometrium measuring 11 mm. ??Endometrium measures 2 mm. ??Both ovaries are not visualized. ??There is no pelvic free fluid or adnexal mass. ??Cervical naboth sanaz cysts are present. Impression 2 mm endometrium. Procedure Note Carl Herbert MD - 11/08/2017Formatt ing of this note might be different from the original. Clinical History postmenopausal bleeding Comparison None. Findings The uterus measures 6.5 x 2.5 x 3.3 cm. Small calcified fibroid is present within the myometrium measuring 11 mm. Endometrium measures 2 mm. Both ovaries are not visualized. There is no pelvic free fluid or adnexal mass. Cervical nabothi an cysts are present. Impression 2 mm endometrium. Ifeoma ZIMMERMAN US PROCEDURES documented in this encounter Visit Diagnoses Diagnosis Postmenopausal bleeding documented in this encounter
--- OUTSIDE RECORDS SUMMARY | 2021-09-05 00:16 | XMS_ITS | Encounter Summary ---
:1945 Author Organization [facility] Address [address] [place] [address] Care Team Providers Name Role Phone Ronak Patel LOGISTICS SYSTEM ENGINEER, CORE EXTRUDER Primary Care Provider Encounter Details Date Type Department Care Team Description 12/01/2017 Lab [place], initial encounter [address] [place], [place] [address] Social History Tobacco Use [...] or relatives? How often do you attend rastafari or More than 4 times per year 12/23/2018 scientologist services? Do you belong to any clubs or No 12/23/2018 organizations such as rastafari groups, unions, fraternal or athletic groups, or [...] Name Priority Date/Time Associated Diagnosis Comme nts H. PYLORI ANTIGEN, Routine 12/01/2017 7:30 AM Hungry, initial Results for this STOOL CDT encounter procedure are i n the results section. documented in this encounter Results H. pylori antigen, stool (12/01/2017 7:30 AM CDT) Analysis Performed At Patho logist Time Signature H pylori Ag, NEGATIVE Negative 12/01/2017 [facility] 2:47 PM CDT [facility] Comment: H. pylori antigen is absent or below the level of detection. Specimen Anatomical Collection Method Collection Time Receive d Time (Source) Location / / Volume Laterality Stool (Per 12/01/2017 7:30 12/01/2017 Rectum) AM CDT 12:59 PM CDT Adriane Patel APRN, CORE EXTRUDER LAB BODY FLUIDS AND STOOL S ORDERABLES Performing Organization Address City/State/ZIP Code Phon e Number [facility] [address] [place] [address] documented in this encounter Visit Diagnoses Diagnosis Hungry, initial encounter documented in this encounter Care Teams Knifer Up Relationship Specialty Start Date End Date Adriane Patel APRN, CORE EXTRUDER PCP - General 09/22/17 07/06/19 100 [place] [address] documented as of this encounter
--- OUTSIDE RECORDS SUMMARY | 2021-09-05 00:16 | XMS_ITS | Encounter Summary ---
:1945 Author Organization [facility] Address [address] [place] [address] Care Team Providers Name Role Phone Ronak Patel ESCORT PATIENTS, TANK INSPECTOR Primary Care Provider Encounter Details Date Type Department Care Team Description 12/23/2017 Orders Only [facility] [place], Coronary artery disease [address] [facility] MD [place] [address] angina pectoris, unspecified ves judith or lesion type, un specified whether solomon or transplanted he art (HCC) (Primary Dx) Social History Tobacco Use [...] as of this encounter Visit Diagnoses Diagnosis 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
--- OUTSIDE RECORDS SUMMARY | 2021-09-05 00:16 | XMS_ITS | Encounter Summary ---
:1945 Author Organization [facility] Address [address] [place] [address] Care Team Providers Name Role Phone Unavailable Primary Care Provider Unavailable Encounter Details Date Type Department Care Team Description 02/23/2017 Hospital Encounter [facility] Borders-Patel Dizzi ness and Radiology , DO felipe Harkins [address] [facility] [address] [place] [address] [place] [address] Social History Tobacco Use Types Packs/Day Years [...] Take 81 mg by mouth 0 201212/30/2017 atorvastatin (LIPITOR) 40 Take 1 tablet by 0 01/1712/30/2017 MG tablet mouth glipiZIDE (GLUCOTROL) 5 Take 0.5 tablets by 0 04/27/2018 MG tablet mouth 2 (two) times a day before meals indomethacin (INDOCIN) 25 Take 1 capsule by 0 12/30/2017 MG capsule mouth documented as of this encounter Plan of Treatment Not on filedocumented as of this encounter Procedures Procedure Name Priority Date/Time Associated Diagnosis Comme nts MRI BRAIN W WO Routine 02/23/2017 1:16 PM Result s for this CONTRAST DOCTOR'S ASSISTANT procedure are i n the results section. documented in this encounter Results MRI head w and wo IV contrast (02/23/2017 1:16 PM DOCTOR'S ASSISTANT) Anatomical Region Laterality Modality Head and Neck Magnetic Resonance Specimen (Source) Anatomical Collection Method Collection Time Re ceived Time Location / / Volume Laterality 02/23/2017 1:16 PM DOCTOR'S ASSISTANT Impressions 02/23/2017 2:48 PM DOCTOR'S ASSISTANT Impression: 1. There is no evidence of acute infarct ion, intracranial hemorrhage or mass lesion. 2. MRI brain is normal for age. 3. Inflammatory paranasal sinus changes most prominent in the sphenoid sinus. Dictated by Gregorio Mccabe MD @ Feb ??8 ??2:28PM Signed by Dr. Gregorio Mccabe @ [place] ??8 2017 ??2:48PM Narrative 02/23/2017 2:48 PM DOCTOR'S ASSISTANT Indication: 71-year-old female with vertigo. Technique: Sagittal T1, axial FLAIR, T2, diffusion weighted, susceptibility weighted and gadolinium-enhanced sagitta l axial and coronal T1 weighted images. Findings: The lateral 3rd and 4th ventricles jammie l in size and shape. ??No evidence of acute ischemic infarction. ? ?No evidence of intracranial hemorrhage. ??No sarah ventricular white matter lesions to suggest demyelinating disease few punctate foci of FLAIR and T2 hyperintensity within the subcortical wh ite matter are nonspecific but typical of age-related chronic micro vascular ischemia. ??Brainstem and cerebellum appear normal. ??There ar e no enhancing intra-axial or extra-axial lesions. ??Fluid levels with in the sphenoid and right maxillary sinuses with enhancing sphenoi d sinus szymanski suggesting acute inflammation. ??There is also infl ammatory opacification of the right para midline frontal air cell. Bilateral mastoid air cells are clear. Procedure Note Gregorio Mccabe - 11/08/2017 Indication: 71-year-old female with vertigo. Technique: Sagittal T1, axial FLAIR, T2, diffusion weighted, susceptibility weighted and gadolinium-enhanced sagitta l axial and coronal T1 weighted images. Findings: The lateral 3rd and 4th ventricles jammie l in size and shape. No evidence of acute ischemic infarction. No evidence of intracranial hemorrhage. No sarah ventricular white m atter lesions to suggest demyelinating disease few punctate foci of FLAIR and T2 hyperintensity within the subcortical wh ite matter are nonspecific but typical of age-related chronic micro vascular ischemia. Brainstem and cerebellum appear normal. There are no enhancing intra-axial or extra-axial lesions. Fluid levels withi n the sphenoid and right maxillary sinuses with enhancing sphenoi d sinus szymanski suggesting acute inflammation. There is also infla mmatory opacification of the right para midline frontal air cell. Bilateral mastoid air cells are clear. Impression: 1. There is no evidence of acute infarct ion, intracranial hemorrhage or mass lesion. 2. MRI brain is normal for age. 3. Inflammatory paranasal sinus changes most prominent in the sphenoid sinus. Dictated by Gregorio Mccabe MD @ Feb 23 2017 2:28PM Signed by Dr. Gregorio Mccabe @ Feb 23 2017 2:48PM Shahana BRUNNERG MRI PROCEDURES documented in this encounter Visit Diagnoses Diagnosis Dizziness and giddiness documented in this encounter
--- OUTSIDE RECORDS SUMMARY | 2021-09-05 00:16 | XMS_ITS | Encounter Summary ---
:1945 Author Organization [facility] Address [address] [place] [address] Care Team Providers Name Role Phone Ronak Patel ADJUNCT PSYCHOLOGY INSTRUCTOR, MARKET RESEARCH WORKER Primary Care Provider Reason for Visit Reason Onset Date Comments referral specifics needed 01/20/2018 Encounter Details Date Type Department Care Team Description 01/20/2018 Telephone [place] Adriane Patel, referral specifics [address] ADJUNCT PSYCHOLOGY INSTRUCTOR, MARKET RESEARCH WORKER needed [place], [place] [address] [address] [facility] [phone] [place], [place] [address] Social History Tobacco Use [...] Notes Telephone Encounter - Luciana Verena - 01/22/2018 2:53 PM CST Paperwork faxed to Denis at [facility] at [phone] as requested. L OFF BEARER Telephone Encounter - Ana Cristina Prado MA - 01/22/2018 2:07 PM CST Please fax to [phone] L OFF BEARER Telephone Encounter - Adriane Patel APRN, CNP - 01/22/2018 11:26 AM METAL OFF BEARER Order completed. L OFF BEARER Telephone Encounter - Adriane Patel APRN, CNP - 01/22/2018 11:26 AM METAL OFF BEARER The order has been placed. Suresh Cm L OFF BEARER Telephone Encounter - Ana Cristina Prado MA - 01/22/2018 9:46 AM CST [place] L OFF BEARER Telephone Encounter - Luciana Albarado - 01/22/2018 9:37 AM CST Denis with [facility] called to let Suresh know to send the order with Abdomen Limited on it. Please fax order to [phone]. Call [phone] with any questions. L OFF BEARER Telephone Encounter - Adriane Patel APRN, LEONARD - 01/20/2018 4:06 PM METAL OFF BEARER The patient was notified the order to [facility] has not been placed as I will discuss with the tech on Thursday the purpose of the order to make sure the testing is ordered correctly. L OFF BEARER Telephone Encounter - Margareth Sanchez RN - 01/20/2018 1:39 PM CST [facility] stated the referral did not state ultrasound on it. They are requesting an ultrasound order for pelvic ultrasound with dx of right groin mass be sent over to them. Please order and we will fax. L OFF BEARER Telephone Encounter - Luciana Albarado - 01/20/2018 12:25 PM CST Denis with [facility] called stating he recived the referral for Marcial regarding the open sore in left groin area, but he needs a specific type of exam to be requested on the referral. L OFF BEARER documented in this encounter Plan of Treatment Scheduled Orders Name Type Priority Associated Diagnoses Order S chedule Ultrasound Abdomen Imaging Routine Left groin mass Expect ed: 01/22/2018, Limited Expires: 2018 documented as of this encounter Results (ABNORMAL) Hemoglobin A1c (02/15/2018 1:50 PM METAL OFF BEARER) Analysis Performed At Patho logist Time Signature Hemoglobin A1C 8.2 (H) 4.0 - 5.6 02/15/2018 [place] % A1C 6:[address] [facility] Comment: Reference Range 4.0-5.6% [...] Location / / Volume Laterality Blood (Blood, 02/15/2018 1:50 02/15/2018 Venous) PM METAL OFF BEARER 6:14 PM METAL OFF BEARER Adriane Patel APRN, LEONARD LAB BLOOD ORDERABLES Performing Organization Address City/State/ZIP Code Phon e Number [facility] [address] [place] [address] documented in this encounter Visit Diagnoses Diagnosis Type 2 diabetes mellitus with complicati on, without long-term current use of insulin (HCC) - Primary Left groin mass documented in this encounter Care Teams Putty Worker Relationship Specialty Start Date End Date Adriane Patel APRN, MARKET RESEARCH WORKER PCP - General 09/22/17 07/06/19 100 [place] [address] documented as of this encounter
--- OUTSIDE RECORDS SUMMARY | 2021-09-05 00:16 | XMS_ITS | Encounter Summary ---
:1945 Author Organization [facility] Address [address] [place] [address] Care Team Providers Name Role Phone Ronak Patel APRN, CNP Primary Care Provider Reason for Referral Consultation (Routine) - Closed Specialty Diagnoses / Procedures Referred By Contact Refer red To Contact Diagnoses Benign paroxysmal positional vertigo, unspecified laterality Adriane Patel, [facility] LEONARD RESENDEZ SYSTEM - [place] [address] [address] [address] [place] [address] Phone: Fax: Referral ID Status Reason Start Date Expiration Date Visits Requ ested Visits Authorized [id number] Closed 02/26/2018 02/26/2019 1 1 Scheduling Instructions Please schedule the patient for physical therapy at [facility]. Thanks, Adriane Patel CNP HER COATER Reason for Visit Reason Onset Date Comments Referral 02/26/2018 Encounter Details Date Type Department Care Team Description 02/26/2018 Telephone [place] Adriane Patel, Referral [address] [facility] 20 LEONARD RESENDEZ [place], [place] [address] [phone] [place], [place] [address] Social History Tobacco Use [...] or relatives? How often do you attend congregation or More than 4 times per year 12/23/2018 congregation services? Do you belong to any clubs or No 12/23/2018 organizations such as congregation groups, unions, fraWalk Score or athletic groups, or school groups? How [...] Notes Telephone Encounter - Phoebe Donohue - 02/26/2018 9:56 AM CST Faxed. HER COATER Telephone Encounter - Adriane Patel APRN, LEONARD - 02/26/2018 9:33 AM LEATHER COATER This has been completed. Please fax. Suresh Cm HER COATER Telephone Encounter - Ana Cristina Prado MA - 02/26/2018 8:42 AM CST Please send referral and we will fax. Patient will be seen at 11am today HER COATER Telephone Encounter - Phoebe Donohue - 02/26/2018 8:37 AM CST Patient woke up with vertigo again and would like referral to [facility]. They are saving a spot for her at 11:00 . Please fax referral to [phone]. HER COATER documented in this encounter Plan of Treatment Scheduled Referrals Name Type Priority Associated Diagnoses Order S chedule Ambulatory External Outpatient Referral Routine Benign paroxys mal Ordered: Referral positional vertigo, 02/26/19 19 unspecified laterality documented as of this encounter Visit Diagnoses Diagnosis Benign paroxysmal positional vertigo, un specified laterality - Primary documented in this encounter Care Teams Flight Follower Relationship Specialty Start Date End Date Adriane Patel APRN, MINE FOREMAN PCP - General 09/22/17 07/06/19 [address] [place] [address] documented as of this encounter
--- OUTSIDE RECORDS SUMMARY | 2021-09-05 00:16 | XMS_ITS | Encounter Summary ---
:1945 Author Organization [facility] Address [address] [place] [address] Care Team Providers Name Role Phone Ronak Patel ACIDIZER WATER WELL, SCRIPT EDITOR Primary Care Provider Encounter Details Date Type Department Care Team Description 12/24/2017 Lab [place] [address] [place], [place] [address] Social History Tobacco Use [...] Date/Time Associated Comments Diagnosis GLOMERULAR FILTRATION Routine 12/24/2017 10:40 Re sults for this RATE AM SOFTLINES SUPERVISOR procedure are i n the results section. CBC BRANCH OFFICE Routine 12/24/2017 10:40 Result s for this W/DIFF AM SOFTLINES SUPERVISOR procedure are i n the results section. CREATININE, SERUM Routine 12/24/2017 10:40 Result s for this AM SOFTLINES SUPERVISOR procedure are i n the results section. SEDIMENTATION RATE, Routine 12/24/2017 10:40 Resu lts for this AUTOMATED AM SOFTLINES SUPERVISOR procedure are i n the results section. C-REACTIVE PROTEIN Routine 12/24/2017 10:40 Resul ts for this AM SOFTLINES SUPERVISOR procedure are i n the results section. ALT Routine 12/24/2017 10:40 Results for this AM SOFTLINES SUPERVISOR procedure are i n the results section. AST Routine 12/24/2017 10:40 Results for this AM SOFTLINES SUPERVISOR procedure are i n the results section. ALBUMIN Routine 12/24/2017 10:40 Results for this AM SOFTLINES SUPERVISOR procedure are i n the results section. documented in this encounter Results (ABNORMAL) Glomerular filtration rate (GFR) (12/24/2017 10:40 AM SOFTLINES SUPERVISOR) athologist Signature GFR 37 (A) 12/24/2017 [facility] 11:03 AM [facility] 45 (A) 12/24/2017 [facility] [place] GFR 11:03 AM SOFTLINES SUPERVISOR [facility] Comment: GFR calculated from serum creatinine v alue Chronic Kidney Disease less than 60 mL/m in/1.73 m2 Kidney Failure less than 15 mL/min/1.73 m2 Note: effective 07/01/06 IDIA-Traceable MDRD Study Equation used. Specimen Anatomical Collection Method Collection Time Receive d Time (Source) Location / / Volume Laterality 12/24/2017 10:40 12/24/2017 AM SOFTLINES SUPERVISOR 10:40 AM SOFTLINES SUPERVISOR Narrative [facility] - 09/2017 11:03 AM SOFTLINES SUPERVISOR Fax results to [facility] Rheumatology [phone] contact Dr Prado [phone] Outside Referring Lab Provider LAB BLOOD ORDERABLES Performing Organization Address City/State/ZIP Code Phon e Number [facility] [address] [place] [address] (ABNORMAL) CBC Branch Off w/Diff (12/24/2017 10:40 AM SOFTLINES SUPERVISOR) Patholo gist Method Time Signature WBC 6.7 3.5 - 10.5 12/24/2017 [facility] K/uL 11:03 AM SOFTLINES SUPERVISOR [place] RBC 3.61 (L) 3.90 - 12/24/2017 [facility] 5.00 M/uL 11:03 AM SOFTLINES SUPERVISOR [place] Hemoglobin 11.1 (L) 12.0 - 12/24/2017 [facility] 15.5 g/dL 11:03 AM [facility]LINES SUPERVIS[facility] [place] Hematocrit 32.9 (L) 35.0 - 12/24/2017 [facility] 44.0 % 11:03 AM [facility]LINES SUPERVISOR [place] Platelets 197 150 - 450 12/24/2017 [facility] K/uL 11:03 AM [employer]LINES SUPERVIS[facility] [place] MCV 91.1 81.6 - 12/24/2017 [facility] 98.3 fL 11:03 AM [employer]LINES SUPERVIS[facility] [place] MCH 30.7 26.0 - 12/24/2017 [facility] 32.0 pg 11:03 AM SOFTLINES SUPERVISOR [place] MCHC 33.7 32.0 - 12/24/2017 [facility] 36.0 g/dL 11:03 AM SOFTLINES SUPERVISOR [place] RDW 12.6 11.9 - 12/24/2017 [facility] 15.5 % 11:03 AM SOFTLINES SUPERVISOR [place] Lymphocytes % 13.0 (L) 18.0 - 12/24/2017 [facility] 45.0 % 11:03 AM SOFTLINES SUPERVISOR [place] Mid-size Cells 9.9 3.3 - 10.1 12/24/2017 [facility] % 11:03 AM SOFTLINES SUPERVISOR [place] Granulocytes/Jean Claude 77.1 (H) 45.8 - 12/24/2017 [facility] trophils 73.7 % 11:03 AM SOFTLINES SUPERVISOR [place] Lymphocytes 0.9 0.9 - 2.9 12/24/2017 [facility] Absolute K/uL 11:03 AM SOFTLINES SUPERVISOR [place] MIDS Absolute 0.7 0.2 - 0.8 12/24/2017 [facility] K/uL 11:03 AM SOFTLINES SUPERVISOR [place] Granulocytes/Jean Claude 5.1 2.1 - 8.7 12/24/2017 [facility] trophils K/uL 11:03 AM SOFTLINES SUPERVISOR [place] Absolute Specimen Anatomical Collection Method Collection Time Receive d Time (Source) Location / / Volume Laterality 12/24/2017 10:40 12/24/2017 AM SOFTLINES SUPERVISOR 10:40 AM SOFTLINES SUPERVISOR Narrative [facility] [place] - 12/24/2017 11:03 AM C Fax results to [place] [phone] contact Dr Prado [phone] Outside Referring Lab Provider LAB BLOOD ORDERABLES Performing Organization Address City/State/ZIP Code Phon e Number [facility] [place] [address] [place] [address] AST (12/24/2017 10:40 AM SOFTLINES SUPERVISOR) athologist Signature AST 33 8 - 43 U/L 12/25/2017 [facility] 1:03 PM SOFTLINES SUPERVISOR [facility] Specimen Anatomical Collection Method Collection Time Receive d Time (Source) Location / / Volume Laterality 12/24/2017 10:40 12/25/2017 AM SOFTLINES SUPERVISOR 12:27 PM SOFTLINES SUPERVISOR Narrative [facility] - 10/2017 1:03 PM SOFTLINES SUPERVISOR Called to CALL CANCELLED - RESULTS FAXED , , 12:47 12/24/2017 [id number] Fax results to [facility] Rheumatology [phone] Prado [phone] Outside Referring Lab Provider LAB BLOOD ORDERABLES Performing Organization Address City/State/ZIP Code Phon e Number [facility] [address] [place] [address] (ABNORMAL) C-reactive protein (12/24/2017 10:40 AM SOFTLINES SUPERVISOR) athologist Signature CRP 22.9 (H) 0.0 - 9.9 12/25/2017 [facility] mg/L 1:43 PM SOFTLINES SUPERVISOR [facility] Comment: . Specimen Anatomical Collection Method Collection Time Receive d Time (Source) Location / / Volume Laterality 12/24/2017 10:40 12/25/2017 AM SOFTLINES SUPERVISOR 12:38 PM SOFTLINES SUPERVISOR Narrative [facility] - 10/2017 1:43 PM SOFTLINES SUPERVISOR Called to CALL CANCELLED - RESULTS FAXED , , 12:47 12/24/2017 [id number] Fax results to [facility] Rheumatology [phone] Prado [phone] Outside Referring Lab Provider LAB BLOOD ORDERABLES Performing Organization Address City/State/ZIP Code Phon e Number [facility] [address] [place] [address] (ABNORMAL) Creatinine, Serum (12/24/2017 10:40 AM SOFTLINES SUPERVISOR) athologist Signature Creatinine 1.4 (H) 0.4 - 1.2 12/24/2017 [facility] [place] mg/dL 11:03 AM SOFTLINES SUPERVISOR [place] Comment: . Specimen Anatomical Collection Method Collection Time Receive d Time (Source) Location / / Volume Laterality 12/24/2017 10:40 12/24/2017 AM SOFTLINES SUPERVISOR 10:40 AM SOFTLINES SUPERVISOR Narrative [facility] [place] - 12/24/2017 11:[address] Fax results to [facility] [phone] contact Dr Prado [phone] Outside Referring Lab Provider LAB BLOOD ORDERABLES Performing Organization Address City/[facility]/ZIP Code Phon e Number [facility] [place] [address] [place] [address] ALT (12/24/2017 10:40 AM SOFTLINES SUPERVISOR) athologist Signature ALT (SGPT) 31 25 - 45 U/L 12/25/2017 [facility] 1:03 PM SOFTLINES SUPERVISOR [facility] Comment: . Specimen Anatomical Collection Method Collection Time Receive d Time (Source) Location / / Volume Laterality 12/24/2017 10:40 12/25/2017 AM SOFTLINES SUPERVISOR 12:27 PM SOFTLINES SUPERVISOR Narrative [facility] - 10/2017 1:03 PM SOFTLINES SUPERVISOR Called to CALL CANCELLED - RESULTS FAXED , , 12:47 12/24/2017 [id number] Fax results to [facility]umatology [phone] Prado [phone] Outside Referring Lab Provider LAB BLOOD ORDERABLES Performing Organization Address City/State/ZIP Code Phon e Number [facility] [address] [place] [address] Albumin (12/24/2017 10:40 AM SOFTLINES SUPERVISOR) athologist Signature Albumin, Serum 4.5 3.5 - 5.0 12/25/2017 [facility] L g/dL 1:03 PM SOFTLINES SUPERVISOR [facility] Specimen Anatomical Collection Method Collection Time Receive d Time (Source) Location / / Volume Laterality 12/24/2017 10:40 12/25/2017 AM SOFTLINES SUPERVISOR 12:27 PM SOFTLINES SUPERVISOR Narrative [facility] - 10/2017 1:03 PM SOFTLINES SUPERVISOR Called to CALL CANCELLED - RESULTS FAXED , , 12:47 12/24/2017 [id number] Fax results to [facility] [phone] Prado [phone] Outside Referring Lab Provider LAB BLOOD ORDERABLES Performing Organization Address City/[facility]/ZIP Code Phon e Number [facility] [address] [place] [address] (ABNORMAL) ESR-Sed rate (12/24/2017 10:40 AM SOFTLINES SUPERVISOR) P athologist Signature Sed Rate 81 (H) 0 - 29 12/25/2017 [facility] mm/hr 1:27 PM SOFTLINES SUPERVISOR [facility] Specimen Anatomical Collection Method Collection Time Receive d Time (Source) Location / / Volume Laterality 12/24/2017 10:40 12/25/2017 AM SOFTLINES SUPERVISOR 12:27 PM SOFTLINES SUPERVISOR Narrative [facility] - 11/0 10/2017 1:27 PM SOFTLINES SUPERVISOR Called to CALL CANCELLED - RESULTS FAXED , , 12:47 12/24/2017 [id number] Fax results to [facility] 9,[phone] Prado [phone] Outside Referring Lab Provider LAB BLOOD ORDERABLES Performing Organization Address City/[facility]/ZIP Code Phon e Number [facility] [address] [place] [address] documented in this encounter Visit Diagnoses Not on filedocumented in this encounter Care Teams Doggy Daycare Activities Director Relationship Specialty Start Date End Date Adriane Patel, ACIDIZER WATER WELL, SCRIPT EDITOR PCP - General 09/22/17 07/06/[address] [place] [address] [place] [address] documented as of this encounter
--- OUTSIDE RECORDS SUMMARY | 2021-09-05 00:16 | XMS_ITS | Encounter Summary ---
:1945 Author Organization [facility] Address [address] [place] [address] Care Team Providers Name Role Phone Ronak Patel APRN, LEONARD Primary Care Provider Reason for Referral Consultation (Routine) - Closed Specialty Diagnoses / Procedures Referred By Contact Refer red To Contact Diagnoses Left groin mass Adriane Patel, [facility] MAL, LEONARD SYSTEM - [address] [address] [place] [address] Phone: Fax: Referral ID Status Reason Start Date Expiration Date Visits Requ ested Visits Authorized [id number] Closed 01/20/2018 07/19/2018 1 1 Scheduling Instructions Please schedule a ultrasound of the left groin where there is a mobile mass. Thanks Adriane Patel R HEAD PIERCER Reason for Visit Reason Comments Leg Pain Encounter Details Date Type Department Care Team Description 01/18/2018 Office Visit [place] Adriane Patel Left groin mass (Primary Dx) ; [address] , MAL, RFID ANALYST Type 2 diabetes mellitus with other spec ified complication, without long-term current use of insulin (HCC); [place], [place] [address] [facility] [address] [address] Discoloration of skin of finger [address] [place] [address] [phone] Social History Tobacco Use Types Packs/Day Years [...] Sign Reading Time Taken Comments Blood Pressure 118/76 01/18/2018 2:52 PM CIGAR HEAD PIERCER Pulse 80 01/18/2018 2:52 PM CIGAR HEAD PIERCER Temperature 36 ??C (96.8 ??F) 01/18/2018 2:52 PM CIGAR HEAD PIERCER Respiratory Rate 20 01/18/2018 2:52 PM CIGAR HEAD PIERCER Oxygen Saturation - - Inhaled Oxygen Concentration - - Weight 81.8 kg (180 lb 5.4 oz) 01/18/2018 2:52 PM CIGAR HEAD PIERCER Height 161 cm (5' 3.39) 01/18/2018 2:52 PM CIGAR HEAD PIERCER Body Mass Index 31.56 01/18/2018 2:52 PM CIGAR HEAD PIERCER documented in this encounter Patient Instructions Patient InstructionsChgarfield Patel APRN, CNP - 01/18/2018 2:20 PM CIGAR HEAD PIERCER Ultrasound of the left groin and will call with the results Check when you had your last HGB a1C R HEAD PIERCER documented in this encounter Progress Notes Adriane Patel APRN, CNP - 01/18/2018 2:20 PM CST Estab Patient Visit Subjective Patient ID: Marcial Adams is a 72 y.o. female presenting for the following concerns. Chief Complaint Patient presents with ??? Leg Pain HPI: The patient is a 72-year-old female presenting ambulatory to the clinical setting with a sore, lump in her left groin area for 2 months, possibly longer. The patient has recently when she wipes she hasblood on the tissue paper and likely from this sore. The patient reports yesterday she tried to squeeze this area open but was unable to remove any exudative material. The patient denies any pain. She is unable to assess the skin tissue over the lump because of the location of the mass. The patient feels as if she has been urinating slower over the past 2-1/2 months and does not know if there is a correlation. The patient reports over the past couple of months she has noticed whitish discoloration in her fingers, and one-time bluish discoloration, and was told this was likely Raynauds syndrome, which she feels is worsening. The patient does have peripheral neuropathy in her feet but not her fingers. She hashad pain in her fingers from rheumatoid arthritis. The patient is currently on glipizide 5 mg p.o. twice daily, is no longer on Metformin which was discontinued on 10/29/2017, for renal dysfunction, which normalized after discontinuing the Metformin. The patient was started on Januvia 50 mg daily in October, after discontinuing the Metformin, and is due for a HGB A1c, as her last one in September was 6 something. The patient is seeing a diabetic specialist in the [facility], who questioned why the metformin was discontinued. The specialists have recommended other medication for her diabetes, but the medication have been expensive, and she is goingin the dougut whole. The patient wonders if she should have a flu shot, as she is on immunosuppressive medication for herrheumatoid arthritis. The patient reports she is no longer taking metoprolol as it made her feel quite irritable, with decreased irritability after she discontinued the mediation. The patient has known coronary artery disease. The patient is no longer on lisinopril, which she was on for renal protection for her Diabetes, uncertain why she discontinued this. The patient has not scheduled her colonoscopy as she was having a difficult time corresponding with [facility] in [place], but agrees to contact them to schedule. ROS: INTEGUMENTARY: See HPI. The patient has a bleeding sore in her left groin area where there is a palpable mass, for the past 2 months, possibly longer. There is no pain associated with this, but is difficult for her to assess the skin over the top because of the location. CARDIOVASCULAR: The patient is no longer on Metoprolol as it made her feel irritable. The patient has a known history of coronary artery disease. The patient feels she has Raynauds syndrome, as she hasa whitish bluish discoloration of her fingers, over the past couple of months, which she feels is worsening. GENITOURINARY: The patient feels as if she has had slower urination over the past 2-1/2 months. The following portions of the patient's chart were reviewed in this encounter and updated as appropriate: Tobacco Allergies Meds Problems Med Hx Surg Hx Fam Hx Soc Hx Objective Visit Vitals BP 118/76 (BP Location: Right arm, Patient Position: Sitting) Pulse 80 Temp (!) 36 ??C (96.8 ??F) (Temporal) Resp 20 Ht 1.61 m (5' 3.39) Wt 81.8 kg (180 lb 5.4 oz) BMI 31.56 kg/m?? Smoking Status Never Smoker BSA 1.91 m?? GENERAL: The patient is alert, orientated, and in no apparent distress. INTEGUMENTARY: Examining the left groin area there is a palpable mobile mass approximately 1 cm x 1 cm in size, and a little open area on the proximal area of this mass, no evidence of blood or exudate. No skin color changes or warmth over the mass; this is not painful to touch. DIAGNOSTICS: Future hemoglobin A1c. Assessment/Plan Marcial was seen today for leg pain. Diagnoses and all orders for this visit: Left groin mass (Primary) - Ambulatory External Referral Type 2 diabetes mellitus with other specified complication, without long-term current use of insulin - Hemoglobin A1c; Future Discoloration of skin of finger Other orders - Influenza High Dose >65yr Preservative Free IM Discussed the plan of care with the patient. Will proceed with imaging of the left groin mass at [facility], and possibly refer her to general surgery. The patient will have a HGB A1c done. The patient had her flu shot today. The patient agrees to schedule her colonoscopy. Will discuss her Raynaud's symptoms with the ticket worker, to see if this should be evaluated by cardiology verses her rhematologist, and notify the patient. The patient was encouraged to bring in all her pill bottles when she returns for clinical visits to verify her medications. The patient understands the Metformin was discontinued because of renal dysfunction, she will stay on her current medications, and have a HGB A1c completed, and have her return for a diabetes review. The patient agrees and understands this planof care. Adriane Patel APRN, CNP R HEAD PIERCER documented in this encounter Plan of Treatment Scheduled Referrals Name Type Priority Associated Order Schedule Diagnoses Ambulatory External Outpatient Referral Routine Left groin mas s Ordered: Referral 01/20/2018 documented as of this encounter Results (ABNORMAL) Hemoglobin A1c (07/07/2018 4:35 PM CDT) [facility] Time Signature Hemoglobin A1C 8.7 (H) 4.0 - 5.6 07/07/2018 [place] % A1C 5:44 PM CDT [facility] Comment: Reference Range 4.0-5.6% [...] PM CDT 5:26 PM CDT Adriane Patel APRN, CNP LAB BLOOD ORDERABLES Performing Organization Address City/State/ZIP Code Phon e Number [facility] [address] [place] [address] documented in this encounter Visit Diagnoses Diagnosis Left groin mass - Primary Type 2 diabetes mellitus with other spec ified complication, without long-term current use of insulin (HCC) Discoloration of skin of finger documented in this encounter Care Teams Service Center Assistant Relationship Specialty Start Date End Date Adriane Patel APRN, CNP PCP - General 09/22/17 07/06/19 [address] [place] [address] documented as of this encounter
--- OUTSIDE RECORDS SUMMARY | 2021-09-05 00:16 | XMS_ITS | Encounter Summary ---
:1945 Author Organization [facility] Address [address] [place] [address] Care Team Providers Name Role Phone Ronak Patel METAL STORAGE WORKER, INVESTMENT SALES ASSISTANT Primary Care Provider Reason for Visit Reason Comments Diarrhea Encounter Details Date Type Department Care Team Description 11/30/2017 Office Visit James Pierre PatelAdriane Diarrhea, unspecified type ( Primary Dx); [address], LEONARD RESENDEZ Insomnia, unspecified type; [place], [place] [address] [place]; [address] [place] [address] Vitamin D deficiency; [phone] Hunger p ain, initial encounter; Renal insuffici ency; Anemia, unspeci fied type Social History Tobacco Use Types Packs/Day Years [...] Sign Reading Time Taken Comments Blood Pressure 116/88 11/30/2017 11:21 AM CDT Pulse 88 11/30/2017 11:21 AM CDT Temperature 36.3 ??C (97.3 ??F) 11/30/2017 11:21 AM CDT Respiratory Rate 12 11/30/2017 11:21 AM CDT Oxygen Saturation 96% 11/30/2017 11:21 AM CDT Inhaled Oxygen Concentration - - Weight 81.3 kg (179 lb 3.7 oz) 11/30/2017 11:21 AM CDT Height 160 cm (5' 2.99) 11/30/2017 11:21 AM CDT Body Mass Index 31.76 11/30/2017 11:21 AM CDT documented in this encounter Patient Instructions Patient InstructionsChgarfield Patel NP - 11/30/2017 11:20 AM CDT Diarrhea, you can take Imodium 2 mg on the onset of the first diarrhea stool per day, and then subsequent stools, up to 16 mg daily (8 tablets), colonoscopy and EGD Insomnia, Trazodone 50 mg daily at bedtime Vitamins, calcium with Vitamin D, 600 mg + 400 mg, twice daily Vitamin C 500 mg daily Check blood sugars when shaky documented in this encounter Progress Notes Adriane Patel NP - 11/30/2017 11:20 AM CDT Estab Patient Visit Subjective Patient ID: Marcial Adams is a 72 y.o. female presenting for the following concerns. Chief Complaint Patient presents with ??? Diarrhea HPI: The patient is a pleasant 72-year-old female presenting ambulatory to the clinical setting today with a longstanding history of persistent diarrhea. The patient recalls either in 2007, or 2011, it was recommended she start Imodium. The patient reports her diarrhea stools are certainly worsening, and leading to stool incontinence. The patient reports the diarrhea typically starts at 5 in the morning until about 830, having between 4-5 diarrhea stools, the first stool may have consistency, followed bywatery loose stools. The patient reports she does not have any stools until around 2:00 in the afternoon, and then may have more. No blood in her stools, but at times mucous. The patient does have mild abdominal discomfort before a bowel movement, relieved with a bowel movement. No heartburn. The patient reports she has had hunger pain while eating, and after eating, for short period of time, which seems to be alleviated with drinking cold water, which started about 3 or 4 weeks ago. The patient inquires if this is an ulcer. No fever, no chills. She reports at times she feels cooler because of her rheumatoid arthritis. The patient has lost weight, about 10 pounds in the past year, since her rheumatoid arthritis diagnosis, but feels this weight loss is a direct correlation from the rheumatoid arthritis, and not from her gastrointestinal symptoms. No family history of Crohn's or colitis. The patient reports her brother has similar symptoms and started on Metamucil with good results and control ofhis symptoms. The patient tried Metamucil daily, she thinks she was taking a teaspoon, for a period of 2 weeks, with no change in her stool pattern. The patient discontinued metformin on 10/29/2017, fordecreased renal function, which did not improve the diarrhea frequency nor severity. The patient didhave stool cultures which were negative for C. Difficile, or any infectious process, in August,. The patient's last colonoscopy was 9 years ago, with a recommendation of repeating it in 10 years. The patient feels she should proceed with a colonoscopy. The patient reports she has a longstanding history of insomnia. The patient reports if she takes Xanax 0.5 mg at bedtime, she sleeps great until 4:00 in the morning, if she takes Xanax 0.25 mg at bedtime she sleeps until 2:30, and if she does not take Xanax, she is up at 12:30. The patient reports sheis not worrying, thinking, is quite comfortable, when she is in bed, and just will not fall asleep. The patient recalls being on something, she believes it was Ambien, which caused her to sleep too deep. The patient is concerned, as she does not want to become addicted to Xanax and is questioning about an alternative medication. The patient reports she has episodes where her hands are shaky in the morning, which started about 2months ago, and her symptoms are only in the morning. The patient is tapering off her prednisone, for her rheumatoid arthritis, as she is attaining adequate pain control with her current treatment plan. The patient reports she had her last dose of prednisone yesterday, after being on it for an extended period of time, and she was told her shakiness may be a withdrawal from the prednisone. The patientreports she does not check her blood sugars when she is shaky. The patient has questions about vitamins. She recalls being diagnosed with vitamin D deficiency, when she was diagnosed with her rheumatoid arthritis, and was on Vitamin D 50,000 units weekly for a couple of months. The patient takes calcium 600 mg and vitamin D 400 international units, twice daily. She does have a vitamin C 500 mg tablet in the [employer] [facility] which she takes. ROS: GENERAL: No fever, no chills but at times she does feel cold, which she feels is from her rheumatoidarthritis. The patient has lost 10 pounds since her rheumatoid arthritis diagnosis, and correlates her weight loss with this diagnosis, and not her gastrointestinal symptoms. BREASTS: The patient reports she did have a mammogram in [place] in November, and does not know the results, as they had to obtain her previous films to compare before resulting. GASTROINTESTINAL: See HPI. The patient has a long-standing history of diarrhea, even recalls back [id number], or 2011, it was recommended she start Imodium. The patient has had a hunger feeling while eating, and then shortly after eating for period of time, for the past 3-4 weeks. MUSCULOSKELETAL: The patient feels her rheumatoid arthritis is currently being controlled. The following portions of the patient's chart were reviewed in this encounter and updated as appropriate: Tobacco Allergies Meds Problems Med Hx Surg Hx Fam Hx Soc Hx Objective Vitals: 11/30/17 1121 BP: 116/88 Pulse: 88 Resp: 12 Temp: 36.3 ??C (97.3 ??F) SpO2: 96% GENERAL: The patient is alert, orientated, and in no apparent distress. GASTROENTEROLOGY: Abdomen is soft, no organomegaly, positive bowel sounds. DIAGNOSTICS: BMP, Vitamin D, and H. Pylori stool antigen Assessment/Plan Marcial was seen today for diarrhea. Diagnoses and all orders for this visit: Diarrhea, unspecified type (Primary) - Ambulatory referral to Gastroenterology; Future Insomnia, unspecified type - traZODone (DESYREL) 50 MG tablet; Take 1 tablet (50 mg total) by mouth at night if needed for sleep Shakes Vitamin D deficiency - Vitamin D, Total; Future Hunger pain, initial encounter - H. pylori antigen, stool; Future Renal insufficiency - Basic metabolic panel; Future Anemia, unspecified type - Ambulatory referral to Gastroenterology; Future Discussed the plan of care with the patient. Will proceed with an EGD and a colonoscopy at [place],for further evaluation of her hunger discomfort with eating, and after eating, frequent and persistent diarrhea, and anemia of unknown etiology. The patient can take 2 Imodium 2 mg tablets, on the onset of the first diarrhea stool per day, and then one tablet with subsequent stools, up to 16 mg, 8 tablets/day. The patient will start trazodone 50 mg at bedtime for her insomnia. The patient should takecalcium with vitamin D 600 mg / 400 mg twice daily and vitamin C 500 mg daily is appropriate. The [place] vitamins are unspecified, I am uncertain if they would interact with her other medications. Recommended the patient check her blood sugars when she is shaky to determine if she has a low blood sugar causing her symptoms. The patient will be notified of her lab results. The patient agrees and understands this plan of care. Adriane Patel NP documented in this encounter Plan of Treatment Not on filedocumented as of this encounter Results H. pylori antigen, stool (12/01/2017 7:30 AM CDT) Analysis Performed At Patho logist Time Signature H pylori Ag, NEGATIVE Negative 12/01/2017 [facility] 2:47 PM CDT [facility] Comment: H. pylori antigen is absent or below the level of detection. Specimen Anatomical Collection Method Collection Time Receive d Time (Source) Location / / Volume Laterality Stool (Per 12/01/2017 7:30 12/01/2017 Rectum) AM CDT 12:59 PM CDT Adriane Patel METAL STORAGE WORKER, INVESTMENT SALES ASSISTANT LAB BODY FLUIDS AND STOOL S ORDERABLES Performing Organization Address City/State/ZIP Code Phon e Number [facility] [address] [place] [phone] Vitamin D, Total (11/30/2017 12:38 PM CDT) athologist Signature Vitamin D, 48.7 ng/mL 12/01/2017 [facility] 2:18 PM CDT [facility] Comment: ---- [...] CDT 12:59 PM CDT Adriane Patel APRN, INVESTMENT SALES ASSISTANT LAB BLOOD ORDERABLES Performing Organization Address City/State/ZIP Code Phon e Number [facility] [address] [place] [phone] (ABNORMAL) Basic metabolic panel (11/30/2017 12:38 PM CDT) athologist Signature Sodium 139 135 - 145 11/30/2017 [facility] mmol/L 1:13 PM CDT [place] Potassium 3.6 3.5 - 5.1 11/30/2017 [facility] mmol/L 1:13 PM CDT [place] Comment: . Chloride 102 98 - 107 mmol/L 11/30/2017 1:13 PM CDT [facility] [place] Comment: . CO2 30 (H) 22 - 29 mmol/L 11/30/2017 1:13 PM CDT [facility] [place] Comment: . Creatinine 1.0 0.4 - 1.2 mg/dL 11/30/2017 1:13 PM CDT [facility] [place] Comment: . BUN 20 5 - 25 mg/dL 11/30/2017 1:13 PM CDT [facility] [place] Comment: . Glucose 149 (H) 70 - 100 mg/dL 11/30/2017 1:13 PM [facility] CDT Calcium, Total,S 9.7 8.4 - 10.2 mg/dL 11/30/2017 1:13 PM [facility] CDT Comment: . Fasting? No 11/30/2017 12:41 PM CDT [facility] Specimen Anatomical Collection Method Collection Time Receive d Time (Source) Location / / Volume Laterality Blood (Blood, 11/30/2017 12:38 11/30/2017 Venous) PM CDT 12:38 PM CDT Adriane Patel APRN, INVESTMENT SALES ASSISTANT LAB BLOOD ORDERABLES Performing Organization Address City/State/ZIP Code Phon e Number [facility] [address] [place] [id number] documented in this encounter Visit Diagnoses Diagnosis Diarrhea, unspecified type - Primary Insomnia, unspecified type Shakes Abnormal involuntary movements Vitamin D deficiency Hunger pain, initial encounter Renal insufficiency Unspecified disorder of kidney and urete r Anemia, unspecified type documented in this encounter Care Teams Reverser Relationship Specialty Start Date End Date Adriane Patel APRN, INVESTMENT SALES ASSISTANT PCP - General 09/22/17 07/06/19 [address] [facility] [place] [id number] documented as of this encounter
--- OUTSIDE RECORDS SUMMARY | 2021-09-05 00:16 | XMS_ITS | Encounter Summary ---
:1945 Author Organization [facility] [place] Address [address] [place] [address] Care Team Providers Name Role Phone Ronak Patel ENGINEERING MGR, HOISTER Primary Care Provider Encounter Details Date Type Department Care Team Description 12/24/2017 Consult [place] Gregorio Mirza MD Canceled (Provider) [address] [place], [place] [address] Social History Tobacco Use [...] 12/23/2018 organizations such as anabaptism groups, unions, fraternal or athletic groups, or [...] on filedocumented in this encounter Care Teams Production Grip Relationship Specialty Start Date End Date Adriane Patel, ENGINEERING MGR, HOISTER PCP - General 09/22/17 07/06/19 [address] [place], [place] [id number] documented as of this encounter
--- OUTSIDE RECORDS SUMMARY | 2021-09-05 00:16 | XMS_ITS | Encounter Summary ---
:1945 Author Organization [facility] Address [address] [place] [address] Care Team Providers Name Role Phone Ronak Patel INFORMATION TECHNOLOGY ACCOUNT MANAGER, CELL STRIPPER Primary Care Provider Reason for Visit Reason Comments Advice Only f/u echo. Pt has a hx of CAD Encounter Details Date Type Department Care Team Description 12/30/2017 Consult [facility] Gregorio Mirza MD Chronic coronary artery dise ase (Primary Dx); [address] [facility] Edema, unspecified type; [place] [address] Essential hypertension [phone] Social History Tobacco Use Types Packs/Day Years [...] Sign Reading Time Taken Comments Blood Pressure 165/86 12/30/2017 2:09 PM CHEMICAL TEST ENGINEER Pulse 79 12/30/2017 2:09 PM CHEMICAL TEST ENGINEER regular Temperature 37.6 ??C (99.7 ??F) 12/30/2017 2:09 PM CHEMICAL TEST ENGINEER Respiratory Rate 18 12/30/2017 2:09 PM CHEMICAL TEST ENGINEER Oxygen Saturation 98% 12/30/2017 2:09 PM CHEMICAL TEST ENGINEER Inhaled Oxygen Concentration - - Weight 82.6 kg (182 lb) 12/30/2017 2:09 PM CHEMICAL TEST ENGINEER Height - - Body Mass Index 32.25 11/30/2017 11:21 AM CDT documented in this encounter Patient Instructions Patient InstructionsGregorio Mirza MD - 12/30/2017 2:40 PM CST 1. Continue your current medications for the meanwhile. 2. To be seen back in clinic with Adriane Patel APRN, CNP and [place] in 1-2 weeks. At that time bring her blood pressure cuff and a diary record of your blood pressures at home for review. 3. We may wish to initiate a medication with a very low side effect profile diltiazem to your regimen. Should try to keep your blood pressure around or under 130 mmHg systolic. 4. To be seen back by me preferably in [place] in approximately 3 months. 5. To call or be seen sooner if problems or questions arise. ICAL TEST ENGINEER documented in this encounter Progress Notes Gregorio Mirza MD - 12/30/2017 2:40 PM CST Consultation Patient ID: Marcial Adams is a 72 y.o. female. Referring Provider: Adriane Patel APRN, CNP HPI This very pleasant 72-year-old female is seen in initial Cardiology Consultation with the [facility] at the request of her primary care provider Adriane Patel APRN, CNP. This very pleasant lady has a history of known coronary artery disease having presented initially and January 2015 with atypical shoulder discomfort and shortness of breath with physical activity. Coronary angiography demonstrated a 70% obstruction of her proximal left anterior descending coronary artery he received a drug-eluting stent. She has done generally well since that time. Most recently she has been followed by [facility] cardiology outreach in the community and was doing well. However, in the last few weeks she is developed problems with bilateral lower extremity edema and shortness of breath. Hershortness of breath tends to be most prominent with activity, such as going up and down her stairs to the basement to do her laundry or while walking up inclines or hills. Her shortness of breath is not associate with chest pain and is not noticeable while sleeping. She denies paroxysmal nocturnal dyspnea, orthopnea, lightheadedness, near-syncope, syncope or palpitations. She has additionally has developed significant lower extremity edema bilaterally which improves when she gets her feet up at night. She furthermore has a long-standing history of anxiety when symptomatic and up and about on her feet as if she might fall she has been seen for this problem in the past with no clear explanation provided and is taking Ativan for anxiety. This symptomatology is not associated with palpitations or other cardiovascular symptoms. The patient is currently seen by me after undergoing an echocardiogr am prior to this visit. She actually feels she is doing quite a bit better now than when this consultation was initially requested. He been briefly advised to discontinue her aspirin per her swimming pool service technician but reinstituted after her symptoms of potential cardiovascular origin persisted. The patient's cardiovascular risk factors include known coronary artery disease, a family history ofcoronary disease with her father dying of complications related to coronary disease and lung cancer at age 68, diabetes mellitus historically maintained on agents with a most recent blood glucose of 149 mg/dL, 11/30/2017 obtained as part of a Chem-8 profile, and dyslipidemia historically treated with atorvastatin the most recent fasting lipid profile from 02/24/2017 demonstrating a total cholesterol of221 mg/dL, triglycerides of 308 mg/dL, an HDL cholesterol 44 mg/dL, and LDL cholesterol 115 mg/dL. She is a lifetime non- smoker with no secondhand smoke exposure. The following portions of the patient's chart were reviewed in this encounter and updated as appropriate: Tobacco Allergies Meds Problems Med Hx Surg Hx Fam Hx Soc Hx ROS General: Weight has been stable. She denies fevers, chills or sweats. HEENT: Vision is good. Denies difficulty hearing, breathing through the nose or swallowing. Endocrine: She has a history of known thyroidism on levothyroxine supplementation, type II diabetes mellitus currently controlled with oral agents the most recent blood glucose as per the above HPI, and dyslipidemia most recently treated with atorvastatin. He has no other metabolic disorder. Pulmonary: Denies bronchospasm, sputum production, cough or recent pulmonary infection. Some recentshortness of breath as per HPI. As noted below she is also being treated for rheumatoid arthritis with some postulation this contribute to her shortness of breath by providers. Cardiovascular: Is as per the above history of the present illness. Gastrointestinal: Denies nausea, vomiting, abdominal pain, rectal bleeding, constipation or diarrheaor loss of appetite. Genitourinary: Denies dysuria, hematuria or recent urinary tract infection. Musculoskeletal: Has recently been diagnosed with rheumatoid arthritis and has been experiencing problems with hand pain linger. She been treated with prednisone resulting in hyperglycemia improved with tapering of the dose. Denies lower extremity edema or leg pain. Dermatological: Denies rash , or other active skin disorder. Hematological: Has no history of known familial bleeding disorder or personal easy bruisability. She does have history of chronic anemia attributed potentially to her other medical problems for which she has been taking iron sulfate of late. Neurological: Denies numbness, weakness, gait disturbance or history of stroke. Psychiatric: Denies depression, anxiety at times that she might fall as per the HPI. Or related disorder. Physical Exam Blood pressure 165/86, pulse 79, temperature 37.6 ??C (99.7 ??F), resp. rate 18, weight 82.6 kg (182lb), SpO2 98 %. Repeat BP approximately 20 minutes after initial BP, right arm: 136/80. Generally: Very pleasant patient in no acute distress. Speaks freely without dyspnea. Weight has been sudha. HEENT: The pupils are equally round and reactive to light and accommodation. Extraocular muscles are intact. Ears and nose are normal. Pharynx is clear. Buccal mucosa is moist. Neck: Supple with full range of motion. No lymphadenopathy or thyromegaly noted. Carotids are grade 4/4 bilaterally with normal upstroke and no bruit appreciated. Lungs: Clear to auscultation and percussion bilaterally with no rales, wheezing or dullness noted. Cardiovascular: The jugular venous pressure and point of maximal intensity are normal. The rhythm is currently entirely regular. The first and second heart sounds are normal. Faint grade 1-2/6 holosystolic murmur left lower sternal border with no diastolic murmur, gallop, rub or click noted. No extrasystoles are appreciated during auscultation or subsequent palpation of the peripheral pulse for approximately 2 minutes. Abdomen: Soft and nontender. No rebound, guarding, hepatosplenomegaly or mass noted. No abdominal bruit is present. Back: No CVA or paraspinal muscle tenderness noted. Skin: No rash, petechiae or ecchymoses present. Extremities: Her PIP and DIP joints of her left third and fourth fingers and her right fourth fingerare mildly swollen slightly tender. She relates this is secondary to her recent flare of rheumatoidarthritis and improving.. Skin is warm and dry. Her lower extremity edema apparently improving with just trace to 1+ edema to mid calf bilaterally.. Pedal pulses grade 4/4 bilaterally. Neurological: Fully oriented. Cranial nerves II through XII, motor, sensory, and deep tendon reflexes grossly equal and symmetrical. Psychiatric: Mood, affect, insight and decision-making are normal. Lab Review: Lab on 12/24/2017 Component Date Value ??? Sed Rate 12/24/2017 81* ??? Albumin, Serum 12/24/2017 4.5 ??? ALT (SGPT) 12/24/2017 31 ??? Creatinine 12/24/2017 1.4* ??? CRP 12/24/2017 22.9* ??? AST 12/24/2017 33 ??? WBC 12/24/2017 6.7 ??? RBC 12/24/2017 3.61* ??? Hemoglobin 12/24/2017 11.1* ??? Hematocrit 12/24/2017 32.9* ??? Platelets 12/24/2017 197 ??? MCV 12/24/2017 91.1 ??? MCH 12/24/2017 30.7 ??? MCHC 12/24/2017 33.7 ??? RDW 12/24/2017 12.6 ??? Lymphocytes % 12/24/2017 13.0* ??? Mid-size Cells 12/24/2017 9.9 ??? Granulocytes/Neutrophils 12/24/2017 77.1* ??? Lymphocytes Absolute 12/24/2017 0.9 ??? MIDS Absolute 12/24/2017 0.7 ??? Granulocytes/Neutrophils* 12/24/2017 5.1 ??? GFR 12/24/2017 37* ??? GFR 12/24/2017 45* Lab on 12/01/2017 Component Date Value ??? H pylori Ag, Stl 12/01/2017 NEGATIVE Lab on 11/30/2017 Component Date Value ??? Vitamin D, Total 11/30/2017 48.7 ??? Sodium 11/30/2017 139 ??? Potassium 11/30/2017 3.6 ??? Chloride 11/30/2017 102 ??? CO2 11/30/2017 30* ??? Creatinine 11/30/2017 1.0 ??? BUN 11/30/2017 20 ??? Glucose 11/30/2017 149* ??? Calcium, Total,S 11/30/2017 9.7 ??? Fasting? 11/30/2017 No ??? GFR 11/30/2017 54* ? ? GFR 11/30/2017 >60 Most recent BNP, 10/29/2017: 211 pg/mL with upper limits of normal 125 pg/mL Echocardiogram, 12/24/2017: 1. The left ventricle is mildly dilated with a left ventricular end-diastolic dimension of 57 mm with normal left medical systolic function, normal wall thickness, and a calculated left ventricular ejection fraction of 65%. 2. Grade 1/4 LV diastolic function 3. Normal RV size and function. 4. Borderline left atrial enlargement with normal right atrial size 5. Mildly sclerotic trileaflet aortic valve without regurgitation or stenosis. 6. Mildly sclerotic mitral valve with mild annular calcification and mild mitral regurgitation. 7. Trivial tricuspid regurgitation. 8. Mildly elevated RV systolic pressure, 38 mmHg. 9. Normal IVC. 10. Normal aortic dimensions. 11. No prior study available for interval comparison. Assessment: 1. Very pleasant and active 72-year-old female with known coronary disease, status post cardiac catheterization and percutaneous revascularization with a drug-eluting stent placed in the proximal leftanterior descending coronary artery, 01/2015 having done quite well since without recurrent anginal s ymptomatology. 2. Recent symptomatology including shortness of breath and lower extremity edema in the setting of a benign very minimally elevated NT-proBNP may more be likely secondary to salt and volume retention while being treated for rheumatoid arthritis with prednisone. She in any event appears to be improving slightly at this time as the prednisone has been cut back upon. 3. Multiple ongoing risk factors for coronary disease including type 2 diabetes mellitus, dyslipidemia with a reluctance of patient about taking statins, and known underlying coronary disease. 4. Relatively recently diagnosed rheumatoid arthritis followed by rheumatology. Plan: 1. We will have the patient continue her current medical regimen including aspirin and would stressthat given her underlying known coronary disease that low-dose aspirin should be maintained perhaps preferably taken has an enteric- coated 81 mg aspirin. 2. As she is tapered off her prednisone attention needs to be placed on whether or not her edema and shortness of breath recur. If so further cardiovascular evaluation would be indicated on an earlier date with attention to the potential of recurrent underlying myocardial ischemia. 3. Ongoing attention to her blood pressure is advised. Prednisone may have spurred a flare of her systolic blood pressure higher than optimal, potentially with associated diastolic dysfunction. Therefore recommend she be seen back in the clinic with her primary care provider Adriane Patel in approximately 1-2 weeks with attention to her blood pressure 4. Otherwise to be seen back in cardiology clinic in [place] preferably per patient in approximately 3 months. ICAL TEST ENGINEER documented in this encounter Plan of Treatment Not on filedocumented as of this encounter Visit Diagnoses Diagnosis Chronic coronary artery disease - Primar y Coronary atherosclerosis of unspecified type of vessel, osage or graft Edema, unspecified type Essential hypertension Unspecified essential hypertension documented in this encounter Care Teams Cyber Ops Planner Relationship Specialty Start Date End Date Adriane Patel, INFORMATION TECHNOLOGY ACCOUNT MANAGER, CELL STRIPPER PCP - General 09/22/17 07/06/19 [address] [place] [address] documented as of this encounter
--- OUTSIDE RECORDS SUMMARY | 2021-09-05 00:16 | XMS_ITS | Encounter Summary ---
:1945 Author Organization [facility] Address [address] [place] [address] Care Team Providers Name Role Phone Ronak Patel APRN, LEONARD Primary Care Provider Reason for Referral Cardiac (Routine) - Closed Specialty Diagnoses / Procedures Referred By Contact Refer red To Contact Cardiology Diagnoses Localized edema Dyspnea on exertion Coronary artery disease, angina presence unspecified, unspecified vessel or lesion type, unspecified whether kake or transplanted heart Adriane Patel, Cardiology Procedures Echocardiogram 2D complete with spec and color form doppler LEONARD RESENDEZ [address] [facility] [address] [place] [address] [place] [address] Fax: Referral ID Status Reason Start Date Expiration Date Visits Requ ested Visits Authorized [id number] Closed 11/13/2017 05/12/2018 1 1 Encounter Details Date Type Department Care Team Description 11/13/2017 Orders Only [place] Adriane Patel Localized edema (Primary Dx) ; [address] M, LEONARD RESENDEZ Dyspnea on exertion; [address] Coronary artery disease, angina presence unspecified, unspecified vessel or lesion type, unspecified whether kake or transplanted heart [address] [place] [address] [phone] Social History Tobacco Use Types Packs/Day Years [...] or relatives? How often do you attend rastafarian or More than 4 times per year 12/23/2018 anabaptist services? Do you belong to any clubs or No 12/23/2018 organizations such as rastafarian groups, unions, [email or web address] or athletic groups, or school groups? How [...] of this encounter Plan of Treatment Scheduled Orders Name Type Priority Associated Diagnoses Order S chedule Echocardiogram 2D Echocardiography Routine Localized neftali ma Expected: complete with spec and Dyspnea o n exertion 11/27/2017, color form doppler Coronary artery s: disease, angina 01/13/2018 presence unspecified, unspecified vessel or lesion type, unspecified whether kake or transplanted heart documented as of this encounter Visit Diagnoses Diagnosis Localized edema - Primary Edema Dyspnea on exertion Other dyspnea and respiratory abnormalit y Coronary artery disease, angina presence unspecified, unspecified vessel or lesion type, unspecified whether kake or crystal splanted heart documented in this encounter Care Teams Director Operations Broadcast Relationship Specialty Start Date End Date Adriane Patel APRN, CDA TEACHER PCP - General 09/22/17 07/06/19 [address] [place] [address] documented as of this encounter
--- OUTSIDE RECORDS SUMMARY | 2021-09-05 00:16 | XMS_ITS | Encounter Summary ---
:1945 Author Organization [facility] Address [address] [place] [address] Care Team Providers Name Role Phone Ronak Patel FICTION AND NONFICTION WRITER PROSE, RN [facility] Primary Care Provider Encounter Details Date Type Department Care Team Description 02/15/2018 Lab [place] Type 2 diabetes mellitus wit h [address] complication, without [place] [address] long-term current use of [phone] insulin (HCC) Social History Tobacco Use Types [...] Associated Diagnosis Comme nts HEMOGLOBIN A1C Routine 02/15/2018 1:50 PM Type 2 diabetes Res ults for this ASSOCIATE SALES REPRESENTATIVE mellitus with procedure are in the complication, without result s section. long-term current use of insulin (HCC) documented in this encounter Results (ABNORMAL) Hemoglobin A1c (02/15/2018 1:50 PM ASSOCIATE SALES REPRESENTATIVE) Analysis Performed At Patho logist Time Signature Hemoglobin A1C 8.2 (H) 4.0 - 5.6 02/15/2018 [place] % A1C 6:32 PM ASSOCIATE SALES REPRESENTATIVE [facility] Comment: Reference Range 4.0-5.6% [...] Blood (Blood, 02/15/2018 1:50 02/15/2018 Venous) PM ASSOCIATE SALES REPRESENTATIVE 6:14 PM ASSOCIATE SALES REPRESENTATIVE Adriane Patel APRN, RN [facility] BLOOD ORDERABLES Performing Organization Address City/State/ZIP Code Phon e Number [facility] [address] [place] [address] documented in this encounter Visit Diagnoses Diagnosis Type 2 diabetes mellitus with complicati on, without long-term current use of insulin (HCC) documented in this encounter Care Teams Chocolatier Relationship Specialty Start Date End Date Adriane Patel APRN, RN [facility] PCP - General 09/22/17 07/06/[address] [place] [id number] documented as of this encounter
--- OUTSIDE RECORDS SUMMARY | 2021-09-05 00:16 | XMS_ITS | Encounter Summary ---
:1945 Author Organization [facility] Address [address] [place] [address] Care Team Providers Name Role Phone Ronak Patel PRACTICE PHYSICIAN, DIRECTOR AIRPORT Primary Care Provider Reason for Visit Reason Comments Medication Visit Encounter Details Date Type Department Care Team Description 02/19/2018 Office Visit Adriane Fernández Type 2 diabetes [address] M, MAL, LEONARD mellitus with other [place], [place] [address] specified [address] [place] [address] complication, without [phone] long-ter m current use of insulin (HCC [...] Sign Reading Time Taken Comments Blood Pressure 120/72 02/19/2018 4:04 PM SWITCHBOARD INSPECTOR Pulse 90 02/19/2018 4:04 PM SWITCHBOARD INSPECTOR Temperature 36.6 ??C (97.8 ??F) 02/19/2018 4:04 PM SWITCHBOARD INSPECTOR Respiratory Rate 16 02/19/2018 4:04 PM SWITCHBOARD INSPECTOR Oxygen Saturation 99% 02/19/2018 4:04 PM SWITCHBOARD INSPECTOR Inhaled Oxygen Concentration - - Weight 81.1 kg (178 lb 12.7 oz) 02/19/2018 4:04 PM SWITCHBOARD INSPECTOR Height 161 cm (5' 3.39) 02/19/2018 4:04 PM SWITCHBOARD INSPECTOR Body Mass Index 31.29 02/19/2018 4:04 PM SWITCHBOARD INSPECTOR documented in this encounter Patient Instructions Patient InstructionsChgarfield Patel APRN, CNP - 02/19/2018 4:00 PM SWITCHBOARD INSPECTOR Glipizide 5 mg twice daily x one month. Continue Januvia 50 mg daily until pills runt out x one month. Closely monitor blood sugars and if they start elevate. CHBOARD INSPECTOR documented in this encounter Progress Notes Adriane Patel APRN, CNP - 02/19/2018 4:00 PM CST Well Adult - Estab Subjective Patient ID: Marcial Adams is a 72 y.o. female presenting for the following concerns. Chief Complaint Patient presents with ??? Medication Visit HPI: The patient is a pleasant 72-year-old female presenting ambulatory to the clinical setting today to review her hemoglobin A1c results on 02/15/18 of 8.2, and diabetic medications. The patient has a long-standing history of type 2 diabetes and is on oral hypoglycemics. The patient was diagnosed with rheumatoid arthritis last year, having several IV steroid infusions, which caused fluctuations in her blood sugars throughout the year. The patient is now on a stable medication for her rheumatoid arthritis, and is no longer receiving IV steroid infusions. The patient had multiple diabetic medications adjustments last year, and brings her medications today for her medication review. The patient is currently on glipizide 2.5 mg twice daily and Januvia 50 mg daily. The patient was taken off her metformin, for renal dysfunction, and her kidney functions have now normalized. The patient is not on a statinmedication reporting they caused dreams, nightmares; therefore, it was discontinued. The patient hadbeen on lisinopril at 2.5 mg daily for renal protection, which she is no longer taking, and cannot recall why she discontinued it. She is on a baby aspirin. The patient is diligent about checking her blood sugars, and feels her blood sugars have been running higher. The patient calculated averages of her blood sugars for several weeks, and fasting before breakfast 147, before lunch 169, and at bedtime 201. The patient feels the evening blood sugar is too high. The patient reports the other concern is she picked up her Januvia yesterday, which was $430 for 1 month, until she reaches her deductible, and then it will be $90 per month. She is a non-smoker. ROS: INTEGUMENTARY: The patient reports there is some discoloration of the skin, over a palpable mass in her left groin area, which has since dissipated and was likely an infectious process. The patient didnot have the ultrasound, as this mass resolved prior to the patient presenting. ENDOCRINOLOGY: See HPI. The patient has a long-standing history of type 2 diabetes is on oral hypoglycemics, with many medication adjustments made throughout last year, as she was being treated for herrheumatoid arthritis. The patient had multiple IV steroid infusions, causing an increase in her blood sugars after them, and diabetic medication adjustments were made frequently. The patient developed renal dysfunction while on metformin, which cleared after discontinuing the Metformin. The following portions of the patient's chart were reviewed in this encounter and updated as appropriate: Tobacco Allergies Meds Problems Med Hx Surg Hx Fam Hx Soc Hx Objective Visit Vitals BP 120/72 (BP Location: Left arm, Patient Position: Sitting) Pulse 90 Temp 36.6 ??C (97.8 ??F) (Temporal) Resp 16 Ht 1.61 m (5' 3.39) Wt 81.1 kg (178 lb 12.7 oz) SpO2 99% BMI 31.29 kg/m?? Smoking Status Never Smoker BSA 1.9 m?? GENERAL: The patient is alert, orientated, and in no apparent distress. INTEGUMENTARY: Examining the left groin area, there is a purplish discoloration of her skin, where aprevious groin mass existed, which is no longer present, no discomfort with palpation, no warmth. DIAGNOSTICS: Reviewed the hemoglobin A1c results from 02/15/2018 were 8.2. Assessment/Plan Marcial was seen today for medication visit. Diagnoses and all orders for this visit: Type 2 diabetes mellitus with other specified complication, without long-term current use of insulin(Primary) - glipiZIDE (GLUCOTROL) 5 MG tablet; Take 1 tablet (5 mg total) by mouth 2 (two) times a day before meals Discussed the plan of care with the patient. The patient will increase her glipizide from 2.5 mg twice daily, to 5 mg twice daily, and a new prescription was sent into her pharmacy. The patient will not resume metformin, as her kidney functions have now normalized. The patient will complete the Januvia for the month of February, as she had the prescription filled, and then discontinue, secondary to the financial cost of the medication. The patient will continue to closely monitor her blood sugars after discontinuing the Januvia, as the glipizide can be increased if we are not at goal. The patient will have her annual diabetic labs in April with a follow-up visit to review. If her kidney functions are normal in April, then will recommend adding a low dose of Lisinopril for renal protection. The patient was reassured she could continue her calcium gummies. The patient agrees and understands this plan of care. Adriane Patel APRN, LEONARD CHBOARD INSPECTOR documented in this encounter Plan of Treatment Not on filedocumented as of this encounter Visit Diagnoses Diagnosis Type 2 diabetes mellitus with other spec ified complication, without long-term current use of insulin (HCC) - Primary documented in this encounter Care Teams Wellness Program Manager Relationship Specialty Start Date End Date Adriane Patel APRN, DIRECTOR AIRPORT PCP - General 09/22/17 07/06/19 100 PENDING S[facility] TO [facility] [address] documented as of this encounter
--- OUTSIDE RECORDS SUMMARY | 2021-09-05 07:58 | XMS_ITS | Encounter Summary ---
:1945 Author Organization [facility] Address [address] [place] [address] Care Team Providers Name Role Phone Unavailable Primary Care Provider Unavailable Reason for Referral Physical Therapy (Routine) - Authorized Specialty Diagnoses / Procedures Referred By Contact Refer red To Contact Diagnoses Imbalance Non Orthopedic Vignesh Currie M.D. [facility] Procedures PT Evaluate and treat [address] [place] [phone] Referral ID Status Reason Start Date Expiration Date Visits V isits Requested Authorized [id number] Authorized 07/05/2021 07/05/2022 99 99 Reason for Visit Reason Comments PT orders Encounter Details Date Type Department Care Team Description 07/03/2021 Clinical Communication Department of Vignesh Currie orders Cardiovascular Diseases [facility] in [facility] [address] [place] [address] [address] [place] [phone] Social History Tobacco Use Types Packs/Day Years Used Date Smoking Tobacco: Never Smokeless Tobacco: Never Alcohol Use Standard Drinks/Week Comments Never 0 (1 standard drink = 0.6 oz pure alcoho l) Alcohol Habits Answer Date Recorded How often do you have a drink containing alcohol? Never 12/17/2018 How many drinks containing alcohol do you have on a typical Not asked day when you are drinking? How often do you have six or more drinks on one occasion? No t asked Comment: Not asked Sex Assigned at Date Recorded Not on file documented as of this encounter Miscellaneous Notes Telephone Encounter - Nicole Madsen - 07/03/2021 8:48 AM CDT ORDER/LAB/REFERRAL REQUEST: Name of test/referral/order requested: PT Reason for request: Patient would like PT orders for off balance. She discussed this with Dr Dowling he said he would put in orders Date needed: Routing: -Order and Lab requests go to [facility] PCP PANEL MANAGERS -Referral Requests go to PCPs CARDIOVASCULAR SPECIALIST pool ??? Please pend orders prior to routing to PCP/Provider ??? DOS/PASS are encouraged to pend orders prior to forwarding message documented in this encounter Plan of Treatment Not on filedocumented as of this encounter Visit Diagnoses Diagnosis Imbalance Non Orthopedic - Primary documented in this encounter Additional Health Concerns Assessment Noted Time PHQ-9 Depression Total Score: 7 06/21/2014 9:20 AM CD T documented as of this encounter
--- OUTSIDE RECORDS SUMMARY | 2021-09-05 07:58 | XMS_ITS | Encounter Summary ---
:1945 Author Organization [facility] Address [address] [place] [address] Care Team Providers Name Role Phone Unavailable Primary Care Provider Unavailable Reason for Referral Outpatient (Routine) - Closed Specialty Diagnoses / Procedures Referred By Contact Refer red To Contact Cardiovascular Disease Vignesh Currie [facility] [place] [facility] M.D. [address] [place] [phone] Referral ID Status Reason Start Date Expiration Date Visits Requ ested Visits Authorized [id number] Closed 11/03/2019 11/02/2020 1 1 Reason for Visit Reason Comments Follow-up Outpatient (Routine) - Closed Specialty Diagnoses / Procedures Referred By Contact Refer red To Contact Cardiovascular Disease Vignesh Currie [facility] [place] [facility] M.D. [address] [place] [phone] Referral ID Status Reason Start Date Expiration Date Visits Requ ested Visits Authorized [id number] Closed 03/17/2019 03/16/2020 1 1 Encounter Details Date Type Department Care Team Description 11/03/2019 Office Visit Department of Vignesh Currie Diabetes Me llitus Type 2 (HCC) (Primary Dx); Cardiovascular Diseases Lee Lance Ischemic Heart Chronic Disease in [id number] [place] [address] [address] [address] [place], [place] [phone] (Work) [phone] Social History Tobacco Use Types Packs/Day Years [...] Sign Reading Time Taken Comments Blood Pressure 122/62 11/03/2019 8:59 AM CDT Pulse 78 11/03/2019 8:59 AM CDT Temperature - - Respiratory Rate - - Oxygen Saturation - - Inhaled Oxygen Concentration - - Weight 81.3 kg (179 lb 3.7 oz) 11/03/2019 8:59 AM CDT Height 157 cm (5' 1.81) 11/03/2019 8:59 AM CDT Body Mass Index 32.98 11/03/2019 8:59 AM CDT documented in this encounter Progress Notes Vignesh Currie M.D. - 11/03/2019 8:48 AM CDT SUBJECTIVE HISTORY OF PRESENT ILLNESS Marcial is a pleasant 74-year-old female from [place], [place]. She is known to me from several prior visits. In brief, she has a history of coronary artery disease with prior stenting of the LAD back in 2014. She has type 2 diabetes with evidence of poor glycemic control over the past 2-1/2 years. Her hemoglobin A1c has been above 8% consistently. She is on high dose glipizide along with insulin and metformin was recently restarted. She previously worked with a integrated specialist, but has since transitioned to working with Dr. Vazquez solely through the [facility]. She has additional comorbidities of rheumatoid arthritis on leflunomide, hyperlipidemia with excellent LDL control on most recent lipid screen from February. Overall, Marcial has done well in the interim since I saw her last. She did have some increased chest symptoms last night. She describes this is substernal chest discomfort that would come on while sitting. The symptoms were improved with walking. There was no exertional component. She does have ahistory of atypical shoulder and neck discomfort. Otherwise, no heart failure symptoms. She continues on daily baby aspirin without bleeding issues. She acknowledges a lack of a formal exercise program. OBJECTIVE PHYSICAL EXAMINATION Vital Signs: Heart rate 78 and regular, blood pressure 122/62, weight 81.3 kg. General: Elderly female sitting comfortably in no acute distress. HEENT: Eyes anicteric. Ears, nose and throat: The mucous membranes are covered by a homemade mask. Lungs: Symmetric chest expansion. Breathing nonlabored. Extremities: Warm without edema. Skin: No visible ecchymosis, bruising or breakdown. Psychiatric: Alert, oriented, responding appropriately. Neurologic: Nonfocal. ASSESSMENT / PLAN #1 Chronic stable dyspnea on exertion, deconditioning #2 Atypical shoulder and neck discomfort #3 Coronary artery disease with prior stenting of the LAD (2014) #4 Excess weight #5 Type 2 diabetes, with poor glycemic control #6 Rheumatoid arthritis, on leflunomide #7 Hyperlipidemia, on low-dose statin #8 Hypertension, on low-dose lisinopril #9 Dizziness and unsteadiness PLAN: It was a pleasure to visit with Marcial in followup. The majority of the clinic encounter focused on diabetes management. I am very concerned by the poor glycemic control over the past nearly 2-1/2 years. Her hemoglobin A1c has consistently been above 8%. She was only just recently restartedon metformin, although we discussed this back in February. We discussed the relationship between uncontrolled type 2 diabetes and recurrent ischemic heart disease. I do think that her diabetes management is the most important issue moving forward. In contrast, her blood pressure and lipids are reasonably well controlled. She does have residual hypertriglyceridemia, although this is relatively mild. This reflects her poor glycemic control and probably an excess of carbohydrates in her diet. The other issue we discussed is increasing her activity levels. We discussed the relationship between fitness and maintenance of her independent lifestyle, which she highly values. I encouraged a daily walking program. I will make arrangements to see Marcial back in 1 month. We will get hemoglobin A1c at that time. The reason for deferring for 1 month is her last hemoglobin A1c was in August and this will ensure insurance approval. If hemoglobin A1c levels remain above 8%, we will then consider a cardiovascular beneficial medication such as liraglutide. Spent 25 minutes in consultation. Vignesh Currie M.D. CT CT Job ID: [id number] documented in this encounter Plan of Treatment Scheduled Referrals Name Type Priority Associated Order Schedule Diagnoses Cardiovascular Disease Outpatient Referral Routine Expected: office visit (clinic) 2019 (Approximate), Expires: 11/02/2022 documented as of this encounter Results (ABNORMAL) Hemoglobin A1c (12/15/2019 9:03 AM CDT) P athologist Signature Hemoglobin A1c, 8.4 (H) 4.2 - 5.6 12/15/2019 CNFL B % 9:20 AM CDT Comment: Hemoglobin A1c values greater than or eq ual to 6.5 percent are diagnostic for diabetes mellitus. ?? Diagnosis should be confirmed by repeat testing. ??In diabet ic patients, HbA1c goals should be discussed with healthcar e provider. Specimen Anatomical Collection Method Collection Time Receive d Time (Source) Location / / Volume Laterality Blood (Blood, 12/15/2019 9:03 12/15/2019 Venous) AM CDT 9:03 AM CDT Vignesh Currie M.D. LAB BLOOD ADD-ON Performing Organization Address City/State/ZIP Code Phon e Number [facility] [address] [place] [address] [place] [address] System in [address] documented in this encounter Visit Diagnoses Diagnosis Diabetes Mellitus Type 2 (HCC) - Primary Ischemic Heart Chronic Disease documented in this encounter Additional Health Concerns Assessment Noted Time PHQ-9 Depression Total Score: 7 06/21/2014 9:20 AM CD T documented as of this encounter
--- OUTSIDE RECORDS SUMMARY | 2021-09-05 07:58 | XMS_ITS | Encounter Summary ---
:1945 Author Organization [facility] Address [address] [place] [address] Care Team Providers Name Role Phone Unavailable Primary Care Provider Unavailable Encounter Details Date Type Department Care Team Description 07/25/2020 Hospital Encounter Department of Vignesh Currie [facility] Heart Chronic Disease; Laboratory Medicine Lee Lance Diabetes Mellitus Type 2 (HCC) in [place] [phone] [facility] [phone] [place], [place] (Work) [phone] Social History Tobacco Use Types Packs/Day Years [...] Sig Dispensed Refills Start Date End Date abatacept in NaCl 0.9% Infuse into a 0 IVPB venous catheter. ALPRAZolam (XANAX) 0.5 mg Take 1 tablet by 0 03/19 tablet mouth every 8 (eight) hours as needed for anxiety. amLODIPine (NORVASC) 5 mg Take 5 mg by mouth 0 tablet daily. ASPIRIN ORAL Take 81 mg by mouth 0 03/02/2012 daily. Take with food for heart health. BASAGLAR KWIKPEN U-100 19 units, in the AM 0 0 02/2018 INSULIN 100 unit/mL (3 mL) injection blood sugar diagnostic 0 06/30/2018 (Accu-Chek Alison Plus test strp) strips calcium carbonate-vitamin Chew. 0 D3 600 mg-10 mcg (400 unit) tablet,chewable clindamycin (CLINDAGEL) 1 0 07/15/2018 % gel dapagliflozin (FARXIGA) 5 Take 1 tablet (5 mg 30 tablet 11 1 mg tablet total) by mouth daily. ergocalciferol (DRISDOL) Take 50,000 Units 0 50,000 Unit capsule by mouth once a week. ferrous gluconate (FERGON) Take 38 mg by mouth 0 324 mg (38 mg iron) tablet daily. furosemide (LASIX) 20 mg Take 0.5 tablets 2 tablet 0 07/25 tablet (10 mg total) by mouth as directed. Take 0.5 tablet as needed for swelling. glipiZIDE (for_GLUCOTROL) Take 10 mg by mouth 0 0 07/03/2016 5 mg tablet every morning before breakfast. leflunomide (ARAVA) 20 mg Take 20 mg by mouth 0 tablet daily. levothyroxine (SYNTHROID, 0 06/23/2018 LEVOTHROID) 75 mcg tablet lisinopril Take 2.5 mg by 0 06/26/2021 (PRINIVIL,ZESTRIL) 2.5 mg mouth daily. tablet metFORMIN (GLUCOPHAGE) 500 Take 500 mg by 0 10/2706/26/2021 mg tablet mouth 2 (two) times a day. Taking only 1 tablet daily rhxspoxv-vtipgrdco-hnxyutu 0 9 06/26/2021 hasone (MAXITROL) 3.5mg/mL-10,000 unit/mL-0.1 % ophthalmic suspension nitroglycerin (NITROSTAT) Place 1 tablet (0.4 10 tablet 3 0 07/29/2018 02/20/2021 0.4 mg SL tablet mg total) under the tongue every 5 (five) minutes as needed for chest pain. rosuvastatin (CRESTOR) 5 Take 2.5 mg by 0 06/26/2021 mg tablet mouth daily. documented as of this encounter Plan of Treatment Not on filedocumented as of this encounter Procedures Procedure Name Priority Date/Time Associated Comments Diagnosis CBC WITHOUT Routine 07/25/2020 2:13 PM Ischemic Heart Result s for this DIFFERENTIAL, B CDT Chronic Disease procedure are in the results section. HEMOGLOBIN A1C, B Routine 07/25/2020 2:13 PM Diabetes Mellitu s Results for this CDT Type 2 (HCC) procedure are i n the results section. BASIC METABOLIC Routine 07/25/2020 2:13 PM Ischemic Heart Res ults for this PANEL, S/P CDT Chronic Disease procedure ar e in the results section. documented in this encounter Results (ABNORMAL) Hemoglobin A1c (07/25/2020 2:13 PM CDT) athologist Signature Hemoglobin A1c, 7.7 (H) 4.2 - 5.6 07/25/2020 CNFL B % 2:31 PM CDT Comment: Hemoglobin A1c values greater than or eq ual to 6.5 percent are diagnostic for diabetes mellitus. ?? Diagnosis should be confirmed by repeat testing. ??In diabet ic patients, HbA1c goals should be discussed with healthcar e provider. Specimen Anatomical Collection Method Collection Time Receive d Time (Source) Location / / Volume Laterality Blood (Blood, 07/25/2020 2:13 07/25/2020 Venous) PM CDT 2:17 PM CDT Vignesh Currie M.D. LAB BLOOD ADD-ON Performing Organization Address City/State/ZIP Code Phon e Number [facility]- [address] [place] [phone] [place] [address] [place] [address] System [address] (ABNORMAL) Basic Metabolic Panel (07/25/2020 2:13 PM CDT) athologist Signature Potassium, P 4.5 3.6 - 5.2 07/25/2020 CNFL mmol/L 2:43 PM CDT Sodium, P 139 135 - 145 07/25/2020 CNFL mmol/L 2:43 PM CDT Chloride, P 105 98 - 107 07/25/2020 CNFL mmol/L 2:43 PM CDT Bicarbonate, P 25 22 - 29 07/25/2020 CNFL mmol/L 2:43 PM CDT Anion Gap, P 9 7 - 15 07/25/2020 CNFL 2:43 PM CDT BUN (Blood 29 (H) 6 - 21 07/25/2020 CNFL Urea mg/dL 2:43 PM CDT Nitrogen), P Creatinine, P 1.49 (H) 0.59 - 07/25/2020 CNFL 1.04 mg/dL 2:43 PM CDT eGFR-Black/Afr 39 (L) >=60 07/25/2020 CNFL ican [place] mL/min/BSA 2:43 PM CDT Comment: ----ADDITIONAL INFORMATION---- Estimated GFR calculated using the 2009 CKD_EPI creatinine equation. eGFR Non-Black/ 34 (L) >=60 mL/min/BSA 07/25/2020 2:43 PM CDT CN[facility] [place] Comment: ----ADDITIONAL INFORMATION---- Estimated GFR calculated using the 2009 CKD_EPI creatinine equation. Calcium, Total, P 9.6 8.8 - 10.2 mg/dL 07/25/2020 2:4 3 PM CDT CNFL Glucose, P 167 (H) 70 - 140 mg/dL 07/25/2020 2:43 PM CDT CNFL Specimen Anatomical Collection Method Collection Time Receive d Time (Source) Location / / Volume Laterality Blood (Blood, 07/25/2020 2:13 07/25/2020 Venous) PM CDT 2:17 PM CDT Vignesh Currie M.D. LAB BLOOD ADD-ON Performing Organization Address City/State/ZIP Code Phon e Number [address] [address] [place] [address] System [address] (ABNORMAL) CBC without Differential (07/25/2020 2:13 PM CDT) [facility] Method Time Signature Hemoglobin 11.0 (L) 11.6 - 07/25/2020 CNFL 15.0 g/dL 2:50 PM CDT Hematocrit 34.3 (L) 35.5 - 07/25/2020 CNFL 44.9 % 2:50 PM CDT Erythrocytes 3.67 (L) 3.92 - 07/25/2020 CNFL 5.13 2:50 PM CDT x10(12)/L MCV 93.5 78.2 - 07/25/2020 CNFL 97.9 fL 2:50 PM CDT RBC Distrib Width 13.2 12.2 - 07/25/2020 CNFL 16.1 % 2:50 PM CDT Platelet Count 223 157 - 371 07/25/2020 CNFL x10(9)/L 2:50 PM CDT Leukocytes 7.6 3.4 - 9.6 07/25/2020 CNFL x10(9)/L 2:50 PM CDT Specimen Anatomical Collection Method Collection Time Receive d Time (Source) Location / / Volume Laterality Blood (Blood, 07/25/2020 2:13 07/25/2020 Venous) PM CDT 2:17 PM CDT Vignesh Currie M.D. LAB BLOOD ADD-ON Performing Organization Address City/State/ZIP Code Phon e Number [facility]- [address] [place] [phone] [place] [address] System [address] documented in this encounter Visit Diagnoses Diagnosis Ischemic Heart Chronic Disease Diabetes Mellitus Type 2 (HCC) documented in this encounter Additional Health Concerns Assessment Noted Time PHQ-9 Depression Total Score: 7 06/21/2014 9:20 AM CD T documented as of this encounter
--- OUTSIDE RECORDS SUMMARY | 2021-09-05 07:58 | XMS_ITS | Encounter Summary ---
:1945 Author Organization [facility] Address [address] [place] [address] Care Team Providers Name Role Phone Unavailable Primary Care Provider Unavailable Reason for Visit Reason Comments Follow-up Appointment Request (Routine) - Closed Specialty Diagnoses / Procedures Referred By Contact Refer red To Contact Referral ID Status Reason Start Date Expiration Date Visits Requ ested Visits Authorized [id number] Closed 05/07/2021 05/07/2022 1 Encounter Details Date Type Department Care Team Description 06/26/2021 Office Visit Department of Vignesh Currie ent Status Post (Primary Dx); Cardiovascular Diseases B, MJairoDJairo Imbalance Non Orthopedic; in [place], [address] [place] [address] Diabetes Mellitus Type 2 (HCC); [place], [place] Hyperlipidemia Mixed [address] [place] [address] [address] [address] [place], [place] [phone] (Work) [phone] Social History Tobacco Use Types Packs/Day Years [...] Sign Reading Time Taken Comments Blood Pressure 142/66 06/26/2021 10:29 AM CDT Pulse 84 06/26/2021 10:29 AM CDT Temperature 36.5 ??C (97.7 ??F) 06/26/2021 10:26 AM CDT Respiratory Rate - - Oxygen Saturation - - Inhaled Oxygen Concentration - - Weight 82.2 kg (181 lb 3.5 oz) 06/26/2021 10:26 AM CDT Height - - Body Mass Index 31.79 08/01/2020 11:10 AM CDT documented in this encounter Progress Notes Vignesh Currie M.D. - 06/26/2021 10:13 AM CDT SOCIAL HISTORY CHIEF COMPLAINT/REASON FOR VISIT Ischemic heart disease. HISTORY OF PRESENT ILLNESS Marcial is a pleasant 76-year-old female from [place], [place]. She is known to me from multiple prior visits over the years. She presents to the clinic today accompanied by her . SinceI saw her last, she has had a couple new medical issues come to light. She was feeling off-balance. She denies vertigo or room spinning sensation. She further denied orthostatic symptoms such as lightheaded with standing. Rather, she would feel off balance while walking. She was using her walker for a while, but ultimately presented to the [facility] for evaluation. She underwenta comprehensive workup which included presumably CT scan of the head. Apparently, no acute intracranial abnormality was identified. An ECG was performed, although the reports are not available. There was initial suspicion for vertigo. She was prescribed meclizine in the emergency room, but had little improvement. She followed up with her primary provider. Additional testing was pursued and I do not get a sense of a clear diagnosis. Marcial reports her symptoms have slowly improved, but have not resolved. She has had no fainting. She has had no spontaneous bleeding, although was having some black stools. Her hemoglobin has historically run in the high 10 g/dL range to low 11 g/dL range. She underwent an EGD which showed findings consistent with gastritis with multiple petechial hemorrhages throughout the visualized stomach. There were stigmata of recent bleeding, but no ulcer. She wasadvised to start omeprazole, which she has been taking 30 minutes before the morning meal. She was having some postprandial stomach discomfort that seems to have improved since starting omeprazole. Her biggest complaint today is actually pain at the distal interphalangeal joint of the 2nd finger on the left hand. [facility]. She has been diagnosed with rheumatoid arthritis and receives infusion therapy with abatacept. My biggest concern today is difficulty reconciling her medications. Her cares list between [facility], [facility], as well as domestic [facility]. She had her medications written down on 3 separate sheets of paper. We were not able to sort through her medications during the clinic visit. She will go home and write out a list on a single page and then contact us back to reconcile. Systolic blood pressure appears reasonably well-controlled on home monitoring. She reports the majority of systolic blood pressure readings in the 130 mmHg range. She informs me that at least 1 clinic visit (presumably during the workup of her balance issues) she had an orthostatic drop in blood pressure, although she does not recall the specifics. OBJECTIVE VITAL SIGNS Heart rate 84 regular, blood pressure 142/66, weight 82.2 kg. PHYSICAL EXAMINATION General: This is an elderly female sitting comfortably in no acute distress. Eyes: Anicteric. Lungs: Clear to auscultation. Heart: Central venous pressure normal. Cardiac auscultation notable for regular rhythm without audible murmur. Extremities: Warm without pitting edema. Skin: No visible ecchymosis, bruising, or breakdown. Musculoskeletal: There is erythema and swelling at the distal interphalangeal joint of the 2nd digit of the left hand. Psych: Alert and oriented, responding appropriately. Neuro: She had some gait instability while transitioning from the chair to the bed. ASSESSMENT / PLAN #1 Query vestibular abnormality manifesting with balance issues #2 Coronary artery disease with prior stenting of the LAD (2014) #3 Type 2 diabetes, on metformin #4 Rheumatoid arthritis, on abatacept #5 Incomplete medication reconciliation #6 Hyperlipidemia, recently discontinued Crestor PLAN: It was a pleasure to visit with Marcial and Alex in followup. Unfortunately, I was not able to reconcile her meds. She is going to go home and compile a list of medications on 1 sheet of paper and then call us back with the correct names and doses. The biggest issue today is her unsteadiness. This is also her biggest concern. I suspect a vestibular process explains her balance issues. I have put through a vestibular evaluation referral. She may benefit from physical therapy. From a cardiac standpoint, I do believe that her ischemic heart disease is stable. Unfortunately, she self-discontinued her daily baby aspirin. She also self-discontinued her Crestor, although the reasons are unclear. I reminded her the rationale for both aspirin and statin. I have encouraged her to restart the daily baby aspirin and we will continue to revisit restarting statin moving forward. I look forward to the results of vestibular evaluation. Lastly, I do believe that her blood pressure is adequately controlled in light of her balance issues. Her blood pressure on home monitoring is lower than in clinic (systolic blood pressures trend in the 130 mmHg range on home monitoring). Vignesh Currie M.D. CT CT Job ID: [id number]/nth documented in this encounter Plan of Treatment Not on filedocumented as of this encounter Visit Diagnoses Diagnosis Coronary Stent Status Post - Primary Imbalance Non Orthopedic Diabetes Mellitus Type 2 (HCC) Hyperlipidemia Mixed documented in this encounter Additional Health Concerns Assessment Noted Time PHQ-9 Depression Total Score: 7 06/21/2014 9:20 AM CD T documented as of this encounter
--- OUTSIDE RECORDS SUMMARY | 2021-09-05 07:58 | XMS_ITS | Encounter Summary ---
:1945 Author Organization [facility] Address [address] [place] [address] Care Team Providers Name Role Phone Unavailable Primary Care Provider Unavailable Reason for Visit Reason Comments Follow-up Outpatient (Routine) - Closed Specialty Diagnoses / Procedures Referred By Contact Refer red To Contact Cardiovascular Disease Vignesh Currie [facility] [place] [facility] M.D. [address] [place] [phone] Referral ID Status Reason Start Date Expiration Date Visits Requ ested Visits Authorized [id number] Closed 11/03/2019 11/02/2020 1 1 Encounter Details Date Type Department Care Team Description 12/15/2019 Office Visit Department of Vignesh Currie Diabetes Me llitus Type 2 (HCC) (Primary Dx); Cardiovascular Diseases [place] Coronary Stent Status Post; in [place], [address] [place] [address] Hyperlipidemia Mixed [place] [address] [address] [place], [place] [phone] (Work) [phone] Social History Tobacco Use Types Packs/Day Years [...] Reading Time Taken Comments Blood Pressure 120/80 12/15/2019 9:16 AM CDT Pulse 64 12/15/2019 9:16 AM CDT Temperature - - Respiratory Rate 16 12/15/2019 9:16 AM CDT Oxygen Saturation - - Inhaled Oxygen Concentration - - Weight 82 kg (180 lb 12.4 oz) 12/15/2019 9:16 AM CDT Height 157 cm (5' 1.81) 12/15/2019 9:16 AM CDT Body Mass Index 33.27 12/15/2019 9:16 AM CDT documented in this encounter Progress Notes Vignesh Currie M.D. - 12/15/2019 8:48 AM CDT CARDIOLOGY PROGRESS NOTE: SUBJECTIVE HISTORY OF PRESENT ILLNESS Marcial is a pleasant 74-year-old female from [place], [place]. She is known to me from multiple prior visits. The purpose of today's visit was to review hemoglobin A1c. At last visit, we had an extensive discussion of diabetes management. The overwhelming majority of this clinic encounter was also focused on diabetes management. As I previously mentioned, she has type 2 diabetes with evidence of a suboptimal glycemic control over the past 2-1/2 years. Her hemoglobin A1c has consistently been above 8%. She was on relatively high dose glipizide along with basal insulin and metformin was recently started back in October. She had previously worked with the banking specialist at [facility], but had since transitioned to working with her primary provider, Dr. Vazquez. She has additional comorbidities of rheumatoid arthritis on leflunomide, hyperlipidemia with excellent LDL control on prior lipid panels, as well as a history of coronary artery disease with prior stenting of the LAD in 2014. Since I saw her last, Marcial has had no signs or symptoms that would suggest active ischemic heart disease or heart failure. She has had no bleeding issues. No stroke or TIA symptoms. I did encourage her to increase her activity levels at last visit. She has not been able to do this on a consistent basis. OBJECTIVE PHYSICAL EXAMINATION Vital Signs: Heart rate 64 and regular. Blood pressure 120/80. Height 157 cm, weight 82 kg. PHYSICAL EXAMINATION General: This is a healthy-appearing elderly female sitting comfortably in no acute distress. Eyes: Anicteric. Ear/Nose/Throat: The mucous membranes are covered by surgical mask. Lungs: Symmetric chest expansion. Breathing nonlabored. Skin: No visible ecchymosis, bruising or breakdown. Psych: Alert, oriented, responding appropriately. Neuro: Afocal. ASSESSMENT / PLAN #1 Chronic stable dyspnea on exertion, deconditioning #2 Atypical shoulder and neck discomfort #3 Coronary artery disease with prior stenting of the LAD (2014) #4 Excess weight #5 Type 2 diabetes, with suboptimal glycemic control (hemoglobin A1c 8.4%) #6 Rheumatoid arthritis, on leflunomide #7 Hyperlipidemia, on low-dose statin #8 Hypertension, on low-dose lisinopril #9 Dizziness and unsteadiness PLAN: It was a pleasure to visit with Marcial in followup. Today, we had another long and extensive counseling session on diabetes management. Discussion of diabetes management consumed virtually the entire clinic encounter. A hemoglobin A1c just prior to this return visit was resulted at 8.4%. Given the history of coronary artery disease with stenting back in 2014, I would favor a more aggressivemanagement. Specifically, I would favor the use of drugs with proven cardiovascular benefit such asSGLT-2 inhibitors or GLP-1 receptor agonist. Marcial would like to explore the co-pay for these agents. I will start by sending a prescription for dapagliflozin 5 mg daily to the pharmacy. Marcial will contact me if the co-pay is acceptable. If the co-pay is acceptable, then I would like to involve her primary provider Dr. Vazquez in the plan before starting. I anticipate we may need to reduce the dose of her glipizide and perhaps adjust her basal insulin levels. She reports the majority of herfasting glucose is in the 100-130 mg/dL range with a rare reading books as low as 70 mg/dL. She takes her basal insulin at night. She does not check postprandial glucose levels. Forty minutes in consultation. Vignesh Currie M.D. CT CT Job ID: [id number]/[id number] documented in this encounter Plan of Treatment Not on filedocumented as of this encounter Visit Diagnoses Diagnosis Diabetes Mellitus Type 2 (HCC) - Primary Coronary Stent Status Post Hyperlipidemia Mixed documented in this encounter Additional Health Concerns Assessment Noted Time PHQ-9 Depression Total Score: 7 06/21/2014 9:20 AM CD T documented as of this encounter
--- OUTSIDE RECORDS SUMMARY | 2021-09-05 07:58 | XMS_ITS | Encounter Summary ---
:1945 Author Organization [facility] Address [address] [place] [address] Care Team Providers Name Role Phone Unavailable Primary Care Provider Unavailable Encounter Details Date Type Department Care Team Description 12/15/2019 Hospital Encounter Department of Vignesh Crurie miky Mellitus Type 2 (HCC); Laboratory Medicine Lee Lance Ischemic Heart Chronic Disease in [place] [phone] [facility] [phone] [place], [place] (Work) [phone] Social History Tobacco Use [...] 8 (eight) hours as needed for anxiety. ASPIRIN ORAL Take 81 mg by mouth 0 03/02/2012 daily. Take with food for heart health. BASAGLAR KWIKPEN U-100 19 units, in the AM 0 06/0 02/2018 INSULIN 100 unit/mL (3 mL) injection [...] 324 mg (38 mg iron) tablet daily. glipiZIDE (for_GLUCOTROL) Take 10 mg by mouth 0 0 07/03/2016 5 mg tablet every morning before breakfast. leflunomide (ARAVA) 20 mg Take 20 mg by mouth 0 tablet daily. levothyroxine (SYNTHROID, 0 06/23/2018 LEVOTHROID) 75 mcg tablet furosemide (LASIX) 20 mg 0 07/20/2018 07/25/2020 tablet lisinopril Take 2.5 mg by 0 06/26/2021 (PRINIVIL,ZESTRIL) 2.5 mg mouth daily. tablet metFORMIN (GLUCOPHAGE) 500 Take 500 mg by 0 10/2706/26/2021 mg tablet mouth 2 (two) times a day. Taking only 1 tablet daily iwgrvdme-uqoeinydl-kaiihmm 0 9 06/26/2021 hasone (MAXITROL) 3.5mg/mL-10,000 unit/mL-0.1 [...] Priority Date/Time Associated Diagnosis Comme nts HEMOGLOBIN A1C, B Routine 12/15/2019 9:03 AM Diabetes Naun s Results for this CDT Type 2 (HCC) procedure are in Ischemic Heart the results Chronic Disease section. documented in this encounter Results (ABNORMAL) Hemoglobin A1c (12/15/2019 [...] Address City/State/ZIP Code Phon e Number [facility]- [address] [place] [id number] [place] [address] [place] [address] System [address] documented in this encounter Visit Diagnoses Diagnosis Diabetes Mellitus Type 2 (HCC) Ischemic Heart Chronic Disease documented in this encounter Additional Health Concerns Assessment Noted Time PHQ-9 Depression Total Score: 7 06/21/2014 9:20 AM CD T documented as of this encounter
--- OUTSIDE RECORDS SUMMARY | 2021-09-05 07:58 | XMS_ITS | Encounter Summary ---
:1945 Author Organization [facility] Address [address] [place] [address] Care Team Providers Name Role Phone Unavailable Primary Care Provider Unavailable Reason for Visit Reason Comments Eye Problem Encounter Details Date Type Department Care Team Description 06/24/2021 Clinical Communication Department of Estelle Martinez Problem Ophthalmology in Eric Abrams R.N. [place] [address] [id number] [phone] Social History Tobacco Use Types Packs/Day Years [...] this encounter Miscellaneous Notes Telephone Encounter - Estelle Martinez R.N. - 06/24/2021 4:29 PM CDT Let patient know OPH advise. She will try and get in with either Kelly or the eye clinic in [place]. Telephone Encounter - Estelle Martinez R.N. - 06/24/2021 11:47 AM CDT Specialty Surgical Services Triage Call Reason for call/visit Dizziness Call Note: Assessment Patient has been having dizziness for one week. She has been evaluated in the ED in [place] whereshe had a head CT and labs which came back negative. She stated that she has balance issues but saysthat it is NOT vertigo as she has had that before. She was instructed by her PCP to have her eyes checked. She has been seen in our OPH dept before by both Dr. Novoa and Dr. Hadley. She denies flashes but did note a new floater and mentioned that she does have DM II. Her last eye exam was done in [facility]. Intervention Reaching out to OPH for guidance. Has patient called or presented with the same symptom previously no Is patient experiencing other symptoms: no The following references were used: nursing clinical judgement and Basilio Telephone Triage Protocolsfor Nurses: [phone] Education provided: patient/caller able to teach back Disposition/Recommendation: notified provider and awaiting recommendations Caller agreeable to plan of care: yes The following individuals participated in today???s interaction: patient Police Liaison used: no Additional concerns addressed: none documented in this encounter Plan of Treatment Not on filedocumented as of this encounter Visit Diagnoses Not on filedocumented in this encounter Additional Health Concerns Assessment Noted Time PHQ-9 Depression Total Score: 7 06/21/2014 9:20 AM CD T documented as of this encounter
--- OUTSIDE RECORDS SUMMARY | 2021-09-05 07:58 | XMS_ITS | Encounter Summary ---
:1945 Author Organization [facility] Address [address] [place] [address] Care Team Providers Name Role Phone Unavailable Primary Care Provider Unavailable Reason for Visit Reason Comments Symptom Assessment SOB, Lightheadedness Encounter Details Date Type Department Care Team Description 07/18/2020 Clinical Department of Kush, Symptom Assess ment Communication Cardiovascular Vignesh Lance, [facility] [place], [place] [address] [phone] Social History Tobacco Use Types Packs/Day Years [...] this encounter Miscellaneous Notes Telephone Encounter - Liss Finley R.N. - 07/19/2020 2:35 PM CDT Labs were ordered. Contacted scheduling to schedule patient with Dr. Currie in [place] on 07/25/2020 at 3:15pm with labs prior. Telephone Encounter - Sindy Baez R.N. - 07/19/2020 10:27 AM CDT ASSESSMENT Nurse called and spoke to Marcial. 1. She states she is experiencing SOB with activity. She will have to pause and catch her breath sometimes in the middle of her activities. She was informed that according to her chart this has been ongoing since last fall at the least. She was encouraged at that time to start on a walking program. She admits she has not been doing this. She will work on starting that to see if her SOB improves. She was told to give this some time with a goal to walk most days as tolerated aiming for 20 minutes each time and gradually increasing her duration as tolerated. 2. She is experiencing lightheadedness intermittent. This has also been ongoing since last fall. She states this seems to be more when she is bending over to pick something up or weeding in her garden or when her blood sugars are low. She has been working on making sure her blood sugars remain within range and has noticed this helped with some of the lightheadedness. Nurse encouraged her to eithersit on a stool to weed or possibly avoid bending over when able as her blood pressure can drop causing the lightheadedness. She will try this and see if it improves her symptoms. She will let us knowif it does not help. 3. She has been experiencing gradual bilateral shoulder sensation of 'feeling funny' similar to how it felt before her previous sent placement. She is denying any pain, n/v or edema. Dr. Currie - please advise on if you would like to have her be seen for evaluation and any testing that may be indicated. PLAN Nurse will route this to Dr. Currie for recommendations on the shoulder sensation. She will work onher walking program and be more conscious of her position changes and blood sugars with her lightheadedness. She will call us in the mean time if new or worsening symptoms present. Disposition/Recommendation: notified provider and awaiting recommendations. Information/Education: patient/caller able to teach back. Caller agreeable to plan of care: yes. The following references were used: nursing clinical judgement. Telephone Encounter - Jose Morrell - 07/18/2020 11:27 AM CDT Patient is wanting a follow up appt with Dr. Currie in [place]. She is having new shortness of breath andlightheadedness with activity and thinks it could be related to her heart. Any testing/labs prior to an office visit? How soon should she be seen? Can leave a message on her home phone number [phone] documented in this encounter Plan of Treatment Not on filedocumented as of this encounter Results (ABNORMAL) Hemoglobin A1c (07/25/2020 [...] Address City/State/ZIP Code Phon e Number [facility]- [address] [place] [address] [place] [address] System [address] (ABNORMAL) Basic Metabolic Panel (07/25/2020 2:13 [...] eGFR-Black/Afr 39 (L) >=60 07/25/2020 CNFL [place] mL/min/BSA 2:43 PM CDT Comment: ----ADDITIONAL INFORMATION---- Estimated GFR calculated using the 2009 CKD_EPI creatinine equation. eGFR Non-Black/ 34 (L) >=60 mL/min/BSA 07/25/2020 2:43 PM CDT CNFL [place] Comment: ----ADDITIONAL INFORMATION---- Estimated GFR calculated using [...] Address City/State/ZIP Code Phon e Number [facility]- [address] [place] [address] [place] [address] [place] [address] [address] (ABNORMAL) CBC without Differential (07/25/2020 2:13 PM CDT) [facility] Method Time Signature Hemoglobin 11.0 (L) 11.6 [...] Address City/State/ZIP Code Phon e Number [facility]- [address] [place] [address] [place] [address] [place] [address] System in [place] [address] [address] documented in this encounter Visit Diagnoses Diagnosis Ischemic Heart Chronic Disease - Primary Diabetes Mellitus Type 2 (HCC) documented in this encounter Additional Health Concerns Assessment Noted Time PHQ-9 Depression Total Score: 7 06/21/2014 9:20 AM CD T documented as of this encounter
--- OUTSIDE RECORDS SUMMARY | 2021-09-05 07:58 | XMS_ITS | Encounter Summary ---
:1945 Author Organization [facility] Address [address] [place] [address] Care Team Providers Name Role Phone Unavailable Primary Care Provider Unavailable Encounter Details Date Type Department Care Team Description 08/07/2020 Clinical Communication Department of Family No Contact , Pcp Medicine, [facility], in [address] [phone] Social History Tobacco Use Types Packs/Day [...] this encounter Miscellaneous Notes Telephone Encounter - Brooklyn Rico - 08/07/2020 12:30 PM CDT Kush Briseno Darrell B, M.D. has put in a request for you to schedule a lab appointment, at your earliestconvenience. To secure an appointment, please respond with your appointment time preferences (e.g. day of week, time of day, etc.) that would be close to the expected date that was requested. You can also reach us at your clinic appointment line if you would prefer to schedule this over the phone between 7 am-6 pm, Thursday-Thursday. [place]: [phone] [place]: [phone] [place]: [phone] [place]: [phone] [place]: [phone] [place]: [phone] [facility]: [phone] Kalpesh Caldwell [place], [place], or [place] clinics: [phone] [place]:[phone] [place]: [phone] Thank you for trusting your health care to [facility]. documented in this encounter Plan of Treatment Not on filedocumented as of this encounter Visit Diagnoses Not on filedocumented in this encounter Additional Health Concerns Assessment Noted Time PHQ-9 Depression Total Score: 7 06/21/2014 9:20 AM CD T documented as of this encounter
--- OUTSIDE RECORDS SUMMARY | 2021-09-05 07:58 | XMS_ITS | Encounter Summary ---
:1945 Author Organization [facility] Address [address] [place] [address] Care Team Providers Name Role Phone Unavailable Primary Care Provider Unavailable Encounter Details Date Type Department Care Team Description 08/02/2020 Orders Only Department of Cardiovascular Xander Currie, Diseases in [place] [address] [facility] [address] [place] [phone] (Wo rk) Social History Tobacco Use Types [...]
--- OUTSIDE RECORDS SUMMARY | 2021-09-05 07:58 | XMS_ITS | Encounter Summary ---
:1945 Author Organization [facility] Address [address] [place] [address] Care Team Providers Name Role Phone Unavailable Primary Care Provider Unavailable Reason for Visit Reason Comments Hand Pain COVID Nurse Line Encounter Details Date Type Department Care Team Description 08/13/2021 Nurse Triage Department of [facility] Nataly Armstrong Pain; COVID Nurse Medicine in [facility] Shahla Anderson [place], [place] [address] [facility] [address] [place] [phone] Social History Tobacco Use Types Packs/Day Years [...] this encounter Miscellaneous Notes Telephone Encounter - Nataly Armstrong RSusan - 08/13/2021 8:23 AM CDT COVID-19 Nurse Line Screening ASSESSMENT Initial Screening Pathway Select appropriate pathway: : Adult In the last 48 hours, have you had a fever* OR symptoms that are unrelated to a preexisting illness?: No symptoms noted (Continue Screening) COVID Asymptomatic Screening Have you had close contact* with a person who has tested positive with COVID-19 in the past 14 days?: No (Continue Screening) Have you tested positive for COVID-19 in the last 90 days?: No (Continue Screening) Have you been advised to undergo testing or are you requesting testing?: No, testing for COVID-19 isnot indicated (End Screening) Testing Recommendation Endpoint Is testing recommended? : Not recommended to test Further Triage Needs Any further triage needs? : No further concerns noted. PLAN Endpoint recommendation: Testing not indicated at this time Standard Care Points -Get a COVID -19 vaccine as soon as you can if not fully vaccinated. -Wash hands frequently with soap and water, use hand telephone lineworker if soap and water aren't available. -Wear a mask over your nose and mouth to help protect yourself and others if not fully vaccinated and having no symptoms -Stay 6 feet between yourself and others who don't live with you. -Avoid crowds and poorly ventilated indoor spaces. -Seek emergent care if any of the following occur Trouble breathing Bluish lips or face Persistent pain or pressure in the chest New confusion or inability to rouse. -Notify your regular care provider of any new or worsening symptoms. Asymptomatic without exposure Carepoints: Testing is not recommended at this time. If you become symptomatic, please call back for additional screening. Education: Patient/caregiver able to teach back Patient agreeable to plan of care: Yes The following references were used: [facility] novel coronavirus (COVID- 19) resources Telephone Encounter - Nataly Armstrong R.N. - 08/13/2021 8:15 AM CDT Chief Complaint / Reason for Call Patient is a 76 y.o. female calling regarding Hand Pain and COVID Nurse Line. Assessment Concern: States has an infection in finger. States had gout and had surgery and is not healing. States would like someone to look at finger. Reports left 2nd digit. States had surgery in [facility], states had a flair up after surgery and was placed on medication, but then taken off due to decreased kidney function. States finger is red, sometimes blue/purple, reports continued swelling, statessometimes feels burning in finger. Denies drainage from prior incision, denies fever, denies red streaks. States had surgery on July 09 & July 29 had a flair up Present for: Couple weeks Home cares tried: Tylenol Calling to request: Appointment The recommended disposition is See a health care provider within 24 hours. Patient was warm transferred toShelly Patient Appointment Director Of Strategy & Mobile at the clinic for further assistance. Care Advice Patient/Caregiver understands and will follow care advice?: Yes, able to teach back SEE PCP WITHIN 24 HOURS: * IF OFFICE WILL BE OPEN: You need to be examined within the next 24 hours. Call your doctor (or ORGANISATION AND METHODS ANALYST/PA) when the office opens and make an appointment. * IF OFFICE WILL BE CLOSED: You need to be seen within the next 24 hours. A clinic or an urgent carecenter is often a good source of care if your doctor's office is closed or you can't get an appointment. * IF PATIENT HAS NO PCP: Refer patient to a clinic or urgent care center. Also try to help caller find a PCP for future care. NOTE TO TRIAGER: * Use nurse judgment to select the most appropriate source of care. * Consider both the urgency of the patient's symptoms AND what resources may be needed to evaluate and manage the patient. CLEANSING: * Wash the area with soap and water. ANTIBIOTIC OINTMENT: * Apply antibiotic ointment (OTC) to the area 3 times per day. * Keep covered with a Bandaid if there is any drainage. PAIN MEDICINES: * For pain relief, you can take either acetaminophen, ibuprofen, or naproxen. * They are nnkw-bim-mbdocqd (OTC) pain drugs. You can buy them at the drugstore. * ACETAMINOPHEN - REGULAR STRENGTH TYLENOL: Take 650 mg (two 325 mg pills) by mouth every 4 to 6 hours as needed. Each Regular Strength Tylenol pill has 325 mg of acetaminophen. The most you should take each day is 3,250 mg (10 pills a day). * ACETAMINOPHEN - EXTRA STRENGTH TYLENOL: Take 1,000 mg (two 500 mg pills) every 8 hours as needed. Each Extra Strength Tylenol pill has 500 mg of acetaminophen. The most you should take each day is 3,000 mg (6 pills a day). * IBUPROFEN (E.G., MOTRIN, ADVIL): Take 400 mg (two 200 mg pills) by mouth every 6 hours. The most you should take each day is 1,200 mg (six 200 mg pills), unless your doctor has told you to take more. * NAPROXEN (E.G., ALEVE): Take 220 mg (one 220 mg pill) by mouth every 8 to 12 hours as needed. You may take 440 mg (two 220 mg pills) for your first dose. The most you should take each day is 660 mg (three 220 mg pills a day), unless your doctor has told you to take more. PAIN MEDICINES - EXTRA NOTES AND WARNINGS: * Use the lowest amount of medicine that makes your pain better. * Acetaminophen is thought to be safer than ibuprofen or naproxen in people over 65 years old. Acetaminophen is in many OTC and prescription medicines. It might be in more than one medicine that you are taking. You need to be careful and not take an overdose. An acetaminophen overdose can hurt the liver. * [employer], the company that makes Tylenol, has different dosage instructions for Tylenol in [place]. In [place], the maximum recommended dose per day is 4,000 mg or twelve Regular-Strength (325 mg) pills. In the [place], the maximum dose per day is ten Regular-Strength (325 mg) pills. * [employer], the company that makes Aleve, has different dosage instructions for Aleve in [place] [facility]. In [place], the maximum recommended dose per day is 440 mg (2 pills or caplets). In the [place], the maximum dose per day is 660 mg (3 pills or caplets). * CAUTION: Do not take acetaminophen if you have liver disease. * CAUTION: Do not take ibuprofen or naproxen if you have stomach problems, kidney disease, are , or have been told by your doctor to avoid this type of anti-inflammatory drug. Do not take ibuprofen or naproxen for more than 7 days without consulting your doctor. * Before taking any medicine, read all the instructions on the package. CALL BACK IF: * Fever occurs * You become worse Reason for Disposition ??? Looks infected (spreading redness, pus) (Exception: localized redness and swelling of skin around nail) Protocols used: FINGER [id number] documented in this encounter Plan of Treatment Not on filedocumented as of this encounter Visit Diagnoses Not on filedocumented in this encounter Additional Health Concerns Assessment Noted Time PHQ-9 Depression Total Score: 7 06/21/2014 9:20 AM CD T documented as of this encounter
--- OUTSIDE RECORDS SUMMARY | 2021-09-05 07:58 | XMS_ITS | Encounter Summary ---
:1945 Author Organization [facility] Address [address] [place] [address] Care Team Providers Name Role Phone Unavailable Primary Care Provider Unavailable Reason for Referral Specialty Diagnoses / Procedures Referred By Contact Refer red To Contact Jasmeet Mccormick M.D. [facility] Region [address] [facility] [place] [address] Referral ID Status Reason Start Date Expiration Date Visits Requ ested Visits Authorized TOLOGIC SUPERVISOR Encounter Details Date Type Department Care Team Description 04/18/2020 Orders Only [facility] PCP TH Sa pamela Terry M.D. [address] [place], [place] [phone] (Wo rk) Social History Tobacco Use Types [...] Name Type Priority Associated Order Schedule Diagnoses Covid immunization Outpatient Referral Routine Ex pected: office visit Initial 021 (Approximate), Expires: 04/18/2021 documented as of this encounter Visit Diagnoses Not on filedocumented in this encounter Additional Health Concerns Assessment Noted Time PHQ-9 Depression Total Score: 7 06/21/2014 9:20 AM CD T documented as of this encounter
--- OUTSIDE RECORDS SUMMARY | 2021-09-05 07:58 | XMS_ITS | Encounter Summary ---
:1945 Author Organization [facility] Address [address] [place] [address] Care Team Providers Name Role Phone Unavailable Primary Care Provider Unavailable Encounter Details Date Type Department Care Team Description 05/15/2020 Immunization Department of [facility] Yasmani Sharpe For COVID-19 Medicine, [place] Tamia Simons. Vaccine Immunization Professional Building, [address] [facility] [place], [place] [address] [place] [address] [address]VE [address] [place] [address] [phone] Social History Tobacco Use Types Packs/Day Years [...] as of this encounter Visit Diagnoses Diagnosis Encounter For COVID-19 Vaccine Immunizat ion documented in this encounter Additional Health Concerns Assessment Noted Time PHQ-9 Depression Total Score: 7 06/21/2014 9:20 AM CD T documented as of this encounter
--- OUTSIDE RECORDS SUMMARY | 2021-09-05 07:58 | XMS_ITS | Encounter Summary ---
:1945 Author Organization [facility] Address [address] [place] [address] Care Team Providers Name Role Phone Unavailable Primary Care Provider Unavailable Reason for Referral Physical Therapy (Routine) - Authorized Specialty Diagnoses / Procedures Referred By Contact Refer red To Contact Diagnoses Imbalance Non Orthopedic Adriane Patel, C.N.P. [facility] Procedures PT Ongoing treatment [address] [place], [place] [address] Referral ID Status Reason Start Date Expiration Date Visits V isits Requested Authorized [id number] Authorized 07/23/2021 07/23/2022 99 99 Reason for Visit Appointment Request (Routine) - Closed Specialty Diagnoses / Procedures Referred By Contact Refer red To Contact Physical Therapy Diagnoses Vertigo Benign Paroxysmal Positional Adriane Patel, C.N.P. [address] [place] [address] Referral ID Status Reason Start Date Expiration Date Visits Requ ested Visits Authorized [id number] Closed 07/05/2021 07/05/2022 1 1 Encounter Details Date Type Department Care Team Description 07/17/2021 Comprehensive Visit Department of Elizabeth Patel C.N.PJairo [address] [place], [place] [phone] Imbalance Non Rehabilitation Rogers Alva, P.TJairo [address] [place] [address] [address] Orthopedic Services in [address] [phone] Social History Tobacco Use Types Packs/Day Years [...] on file documented as of this encounter Consult Notes Rogers Alva P.T. - 07/17/2021 10:45 AM CDT Consults Physical Therapy Outpatient Evaluation/Treatment By co-signing this note, the provider certifies the therapy being provided to this patient is reasonable and necessary for the diagnosis or treatment of this patient. SUBJECTIVE Patient's Name: Marcial Adams Referring Provider: Jer Bran Visit Diagnosis: 1. Imbalance Non Orthopedic Payor: MEDICARE / Plan: MEDICARE A AND B / Product Type: Medicare / [employer] Visit Count: 1 PERTINENT MEDICAL / SURGICAL HISTORY: Patient Active Problem List Diagnosis ??? Diabetes Mellitus Type 2 (HCC) ??? Ischemic Heart Chronic Disease ??? Vertigo ??? Vertigo Benign Positional Bilateral ??? Diarrhea ??? Anemia ??? Vertigo Benign Paroxysmal Positional Right ??? Hyperlipidemia Mixed ??? Coronary Stent Status Post Past Surgical History: Procedure Laterality Date ??? APPENDECTOMY N/A 06/05/1959 Appendectomy ??? BREAST BIOPSY 02/16/1986 ??? CATARACT EXTRACTION ??? SECTION N/A section ??? HERNIA REPAIR 06/14/1998 Incisional hernia repair with mesh ??? HERNIA REPAIR 03/22/2001 ??? OTHER CONVERTED SHX (SEE COMMENT) N/A 01/26/2015 >PTCA and drug-eluting stent placement in the mid-LAD vessel. Patient presents to outpatient physical therapy for evaluation of symptoms includin. imbalance Overall patient reports status is improving . History of Present Illness: patient report insidious onset lightheadedness and imbalance. Patient reports her symptoms are greatest x2 days. Patient was seen in the emergency department. Her discharging diagnoses included BPPV. Patient has had previous episodes of this in the past but has had more of a spinning sensation with those episodes. Aggravating Factors: Unknown Relieving Factors: Rest Previous Treatments: Patient was seen in the emergency department. Prior Function/Occupational Profile: No prior limitation Patient goals: resolve symptoms Contact monitoring: PPE used during therapy: Therapist was wearing the following PPE throughout entire session: surgicalmask Patient was wearing a mask during therapy session: yes Additional Staff Present During Session: no OBJECTIVE PHYSICAL EXAM Pain: No complaint of pain Ortho Exam Patient ambulates into physical therapy today independently without the use an assistive device. Patient does have a widened base of support with a slow gait speed and occasional reaching for upper extremity support. Cervical range of motion is within normal limits. Hallpike Karan test was positive for right posterior canal nystagmus as well as right horizontal canalnystagmus. Patient did report symptom reproduction. TREATMENT Treatment today consisted of: Performed canalith repositioning for the right posterior canal x2 followed by the right horizontal canal x1. Home Exercise Program/Education: Patient does not need to perform home exercises at this time. She was provided with Aquino Daroff exercises to perform at 5 repetitions 1 time a day if she wants to work prevention of future recurrence. Assessment Clinical Impression: Patient presents to physical therapy with signs and symptoms consistent with BPPV. Impairments: Lightheadedness and imbalance. Functional deficits: Decreased positional activity tolerance. Rehab Potential: Patient has potential to achieve established physical therapy goals within the time frame outlined below, provided active participation in the physical therapy treatment plan and home program. Functional Goals and Timeframes: PT Outpatient Goals PT Goal #1: Patient will report resolution of symptoms. PT Goal #1 Date: 08/02/21 PT Goal #2: Patient will ambulate safely independently without the use an assistive device. PT Goal #2 Date: 08/02/21 Plan Patient was educated regarding evaluative findings, diagnosis, prognosis, potential risks and benefits of rehabilitation interventions. A collaborative effort was used to establish goals and plan of care. The patient was informed of the right to make decisions regarding care, including refusal of examination or treatment or selection of services from another provider if desired. The treatment plan may be progressed or modified based upon the patient's response to treatment. Treatment Plan: Start of Plan of Care: 07/17/2021 Number of Visits: 1 visit PT Duration: 1 visit PT Frequency: 1 visit Treatment interventions may include: patient education, home exercise program, canalith repositioning. Plan for next session: Patient will contact therapist symptoms do not resolve in 1 treatment session. Time Spent with Patient Evaluations PT Eval - Low Complexity: 35 min Time Tracking Total Treatment Time (min): 35 min documented in this encounter Miscellaneous Notes Addendum Note - Rogers Alva PJairoT. - 07/17/2021 10:45 AM CDT Addended by: ROGERS ALVA on: 07/23/2021 10:05 AM Modules accepted: Orders documented in this encounter Plan of Treatment Not on filedocumented as of this encounter Visit Diagnoses Diagnosis Imbalance Non Orthopedic documented in this encounter Additional Health Concerns Assessment Noted Time PHQ-9 Depression Total Score: 7 06/21/2014 9:20 AM CD T documented as of this encounter
--- OUTSIDE RECORDS SUMMARY | 2021-09-05 07:58 | XMS_ITS | Encounter Summary ---
:1945 Author Organization [facility] Address [address] [place] [address] Care Team Providers Name Role Phone Unavailable Primary Care Provider Unavailable Reason for Visit Reason Comments Med Refill Encounter Details Date Type Department Care Team Description 02/19/2021 Refill Department of Cardiovascular [facility] Vignesh bella M.D. Med Refill Diseases in [place], [place] [address] [facility] [address] [place] [address] [place] [address] [phone] Social History Tobacco Use Types Packs/Day Years [...]
--- OUTSIDE RECORDS SUMMARY | 2021-09-05 07:58 | XMS_ITS | Encounter Summary ---
:1945 Author Organization [facility] Address [address] [place] [address] Care Team Providers Name Role Phone Unavailable Primary Care Provider Unavailable Reason for Visit Physical Therapy (Routine) - Authorized Specialty Diagnoses / Procedures Referred By Contact Refer red To Contact Diagnoses Imbalance Non Orthopedic Adriane Patel, C.N.P. [facility] Procedures PT Ongoing treatment [address] [place], [place] [address] Referral ID Status Reason Start Date Expiration Date Visits V isits Requested Authorized [id number] Authorized 07/23/2021 07/23/2022 99 99 Encounter Details Date Type Department Care Team Description 07/26/2021 Clinical Support Department of Ai Patel, C.N.P. [address] [place] [address] Imbalance Non Rehabilitation Luciana Ferguson, P.T. [address] [place] [phone] Orthopedic Services in [address] [phone] Social History Tobacco Use Types Packs/Day Years [...] documented as of this encounter Progress Notes Luciana Ferguson P.T. - 07/26/2021 11:45 AM CDT Physical Therapy Outpatient Treatment Note SUBJECTIVE Patient's Name: Marcial Adams Referring Provider: Jer Bran Visit Diagnosis: 1. Imbalance Non Orthopedic Payor: MEDICARE / Plan: MEDICARE A AND B / Product Type: Medicare / No data recorded Epic Visit Count: 2 Patient comments: Patient reports her symptoms were better but she is feeling off balance again today. Contact monitoring: PPE used during therapy: Therapist was wearing the following PPE throughout entire session: surgicalmask Patient was wearing a mask during therapy session: yes Additional Staff Present During Session: no OBJECTIVE Pain: no new complaint. Hallpike Epworth test caused symptom reproduction for the right posterior canal, nystagmus was not visualized. TREATMENT Treatment today consisted of: Performed canalith repositioning for the right posterior canal x2 followed by the right horizontal canal x1. Assessment Clinical Impression: Patient had a recurrence of symptoms. She tolerated session with symptom reproduction. Functional Goals and Timeframes: PT Goal #1: Patient will report resolution of symptoms. PT Goal #1 Date: 08/02/2021 PT Goal #2: Patient will ambulate safely independently without the use an assistive device. PT Goal #2 Date: 08/02/2021 No data recorded No data recorded Plan Plan for next session: Patient will contact therapy if symptoms do not resolve. Time Spent with Patient Therapeutic Interventions Canalith Repositioning (min): 25 min Time Tracking Total Timed Units (min): 25 min Total Treatment Time (min): 25 min documented in this encounter Plan of Treatment Not on filedocumented as of this encounter Visit Diagnoses Diagnosis Imbalance Non Orthopedic documented in this encounter Additional Health Concerns Assessment Noted Time PHQ-9 Depression Total Score: 7 06/21/2014 9:20 AM CD T documented as of this encounter
--- OUTSIDE RECORDS SUMMARY | 2021-09-05 07:58 | XMS_ITS | Encounter Summary ---
:1945 Author Organization [facility] Address [address] [place] [address] Care Team Providers Name Role Phone Unavailable Primary Care Provider Unavailable Reason for Referral Specialty Diagnoses / Procedures Referred By Contact Refer red To Contact [facility] Professional [facility] [address] [place] [address] Referral ID Status Reason Start Date Expiration Date Visits Requ ested Visits Authorized ECTIONAL MANAGER Encounter Details Date Type Department Care Team Description 04/20/2020 Immunization Department of Yasmani Wells For COVID-19 Medicine, [place] Simons M.D. Vaccine Immunization Professional Building, [address] (Primary Dx) in [place], [place] [address] [place] [phone] [place] [phone] Social History Tobacco Use Types Packs/Day Years [...] Type Priority Associated Diagnoses Order S chedule Covid immunization Outpatient Referral Routine Encounter For E xpected: office visit COVID-19 Vaccine 05/11/2020, Subsequent; 21 days Immunization Expires: 04/21/2023 documented as of this encounter Visit Diagnoses Diagnosis Encounter For COVID-19 Vaccine Immunizat ion - Primary documented in this encounter Additional Health Concerns Assessment Noted Time PHQ-9 Depression Total Score: 7 06/21/2014 9:20 AM CD T documented as of this encounter
--- OUTSIDE RECORDS SUMMARY | 2021-09-05 07:58 | XMS_ITS | Clinical Summary ---
:1945 Author Organization [facility] Address [address] [place] [address] Care Team Providers Name Role Phone Unavailable Primary Care Provider Unavailable Source Comments Patient records contain information from all sites at [facility]. For routine questions regarding patient records, call [phone] during business hours, M-F 8:00 AM - 5:00 PM Central Time. Record requests for emergency care only can be directed to [phone] at any time.[facility] Allergies Active Allergy Reactions Severity Noted Date Comments Amlodipine Hypotension 02/22/2021 Azathioprine Other (see comments) 07/29/2018 Azithromycin Other (see comments) 03/19/2010 Unknown reaction Lisinopril Other (see comments) Medium 07/29/2018 nightma res Metoprolol Other (see comments) 06/19/2020 unknown Olmesartan Other (see comments) 03/19/2010 Unknown reaction Iofcldm-Hwu-Etu Other (see comments) 01/05/2019 Into lerance to Statin Reductase Inhibitors Medications Medication Sig Dispensed Refills Start Date End Date Status ASPIRIN ORAL Take 81 mg by 0 03/02/2012 Ac tive mouth daily. Take with food for heart health. glipiZIDE Take 10 mg by 0 07/03/2016 Activ e (for_GLUCOTROL) 5 mg mouth every tablet morning before breakfast. ALPRAZolam (XANAX) 0.5 Take 1 tablet 0 04/05/2015 Active mg tablet by mouth every 8 (eight) hours as needed for anxiety. ergocalciferol Take 50,000 0 Act marty (DRISDOL) 50,000 Unit Units by mouth capsule once a week. leflunomide (ARAVA) 20 Take 20 mg by 0 Active mg tablet mouth daily. ferrous gluconate Take 38 mg by 0 Active (FERGON) 324 mg (38 mg mouth daily. iron) tablet blood sugar diagnostic 0 06/30/2018 Active (Accu-Chek Alison Plus test strp) strips clindamycin (CLINDAGEL) 0 07/15/2018 Active 1 % gel BASAGLAR KWIKPEN U-100 19 units, in 0 07/17/2018 Active INSULIN 100 unit/mL (3 the AM mL) injection levothyroxine 0 06/23/2018 Activ e (SYNTHROID, LEVOTHROID) 75 mcg tablet calcium Chew. 0 Active carbonate-vitamin D3 600 mg-10 mcg (400 unit) tablet,chewable abatacept in NaCl 0.9% Infuse into a 0 Active IVPB venous catheter. dapagliflozin (FARXIGA) Take 1 tablet 30 tablet 11 12/15/2019 Active 5 mg tablet (5 mg total) by mouth daily. amLODIPine (NORVASC) 5 Take 5 mg by 0 Active mg tablet mouth daily. furosemide (LASIX) 20 Take 0.5 2 tablet 0 07/25/2020 Active mg tablet tablets (10 mg total) by mouth as directed. Take 0.5 tablet as needed for swelling. nitroglycerin PLACE 1 TABLET 25 tablet 3 02/20/2021 Active (NITROSTAT) 0.4 mg SL UNDER THE tablet TONGUE EVERY 5 MINUTES IF NEEDED FOR UP TO 3 TIMES, IF NO RELIEF CALL 911 metFORMIN (GLUCOPHAGE) Take 1 tablet 90 tablet 3 06/26/2021 Active 500 mg tablet (500 mg total) by mouth daily with breakfast. Taking only 1 tablet daily Active Problems Problem Noted Date Coronary Stent Status Post 12/15/2019 Hyperlipidemia Mixed 03/17/2019 Diarrhea 12/14/2017 Overview: Added automatically from request for cookie tasia [id number] Anemia 12/14/2017 Overview: Added automatically from request for cookie tasia [id number] Ischemic Heart Chronic Disease 02/05/2015 Overview: Coronary Artery Disease (CAD) [place] Ves judith Diabetes Mellitus Type 2 08/07/2010 Vertigo Vertigo Benign Positional Bilateral Vertigo Benign Paroxysmal Positional Right Encounters Date Type Specialty Care Team Description 08/13/2021 Nurse Triage Family Medicine DaMaliha rondon, Infection M.S.N., R.N. 08/13/2021 Nurse Triage Family Medicine [place], Hand Pain; Deana Anderson R.N. Nurse Line 07/26/2021 Clinical Support Physical Medicine Ryan Patel Non and Rehabilitation Adriane Simons Orthopedi c C.N.PLuciana Curiel, P.T. 07/17/2021 Comprehensive Visit Physical Medicine Mary Patel [facility] Rehabilitation Adriane Simons Orthopedi c C.N.PLuciana Curiel, P.T. 07/03/2021 Clinical Cardiovascular Vignesh Currie PT orders Communication Disease B, MJairoDJairo 06/26/2021 Office Visit Cardiovascular Vignesh Currie Coronary S tent Status Post (Primary Dx); Disease B, M.D. Imbalance Non O rthopedic; Diabetes [facility] Type 2 (HCC); Hyperlipidemia Mixed 06/24/2021 Clinical Ophthalmology Estelle Martinez Eye Problem Communication N, R.N. from Last 3 Months Immunizations Name Administration Dates Next Due HZV (ZOSTAVAX) 09/20/2015, 08/28/2015 Influenza Split 11/22/2014, 12/31/2009 Influenza, Unspecified 12/10/2015, 11/29/2014, 12/02/2013, 11/16/2012, 11/30/2010, 12/17/2009 PCV13 06/21/2014 PPSV23 08/16/2019, 01/28/2008 SARS-COV-2 (COVID-19) - PFIZER (12 05/15/2020, 04/20/2020 years or older) Td (Adult), adsorbed 02/14/2010 Td Preservative Free (TENIVAC, 08/16/2019 DECAVAC) Tdap 02/14/2010 influenza high dose (65 years or 01/17/2019, 01/18/2018, , older) (PF) 12/10/2015, 12/01/2015, 11/29/2014, 11/22/2014, 11/23/2013 Family History Medical History Relation Name Comments Aneurysm Brother Diabetes Brother Prostate cancer Brother Diabetes Daughter Migraines Daughter Coronary artery disease Father Lung cancer Father Breast cancer Mother Amblyopia Neg Hx Blindness Neg Hx Cataracts Neg Hx Macular degeneration Neg Hx Retinal degeneration Neg Hx Retinal detachment Neg Hx Relation Name Status Comments Brother Daughter Father Mother Social History Tobacco Use Types Packs/Day Years [...] ??F) 06/26/2021 10:26 AM CDT Respiratory Rate 16 08/01/2020 12:12 PM CDT Oxygen Saturation 100% 08/01/2020 12:12 PM CDT Inhaled Oxygen Concentration - - Weight 82.2 kg (181 lb 3.5 oz) 06/26/2021 10:26 AM CDT Height 160.8 cm (5' 3.31) 08/01/2020 11:10 AM CDT Body Mass Index 31.79 08/01/2020 11:10 AM CDT Plan of Treatment Health Maintenance Due Date Last Done Comments Hepatitis C Screening 1945 Hepatitis B Vaccines (1 of 2005 3 - Risk 3-dose series) Zoster Vaccines (1 of 2) 11/15/2015 09/20/2015, 08/28/2015, 08/28/2015 Diabetic Office Visit with 05/23/2016 05/24/2015 Foot Exam Diabetes Education 07/30/2016 03/02/2015 DTaP,Tdap,and Td Vaccines 08/17/2019 08/16/2019, 08/16/2019 , (1 - Tdap) 02/14/2010, Additional history exists Depression Screening 02/16/2021 (Annual PHQ-2) Fall Risk Screen (Annual) 02/16/2021 Thyroid Stimulating Hormone 03/16/2021 03/16/2020, 04/23/19 19, (TSH) test for thyroid 12/12/2013, Additional function history exists Urine Microalbumin 03/16/2021 03/16/2020, 01/25/2020, 09/06/2019, Additional history exists COVID-19 Vaccine (4 - 03/20/2021 12/18/2020, 05/15/2020, Booster for Pfizer series) 04/20/2020 Hemoglobin A1C 05/15/2021 02/14/2021, 07/25/2020, 06/15/2020, Additional history exists Dilated Eye Exam 06/14/2021 06/14/2020, 07/18/2019, 07/18/2019, Additional history exists Office Visit for Blood 09/26/2021 06/26/2021 Pressure Check / Re-check Influenza Vaccine (#1) 2021 11/09/2020, 01/17/2019, 01/18/2018, Additional history exists Creatinine Level 02/14/2022 02/14/2021, 07/25/2020, 03/16/2020, Additional history exists Potassium Level 02/14/2022 02/14/2021, 07/25/2020, 03/16/2020, Additional history exists Sodium Level 02/14/2022 02/14/2021, 07/25/2020, 03/16/2020, Additional history exists Pneumococcal vaccine (65+ Completed 08/16/2019, 06/21/2014 , years) 01/28/2008 HPV Vaccines Aged Out No longer eligib le based on patient 's age to complete this topic Medical Devices Implanted Type Area Jig Borer Device Shelf Model / Identifier Expiration Serial / Date Lot Premier 3.0 X 16 - Sorto [id number] Cardiac [place] Implanted: Qty: 1 on 01/26/2015 Stent Scientific Description: Device Jig Borer - [employer]. Device Status Text - [id number]. Insurance Payer Benefit Plan Subscriber ID Effective Phone Address Typ e / Group Dates MEDICARE MEDICARE A [id number] 2010-Pres [address] [place] [address] BLUE CR[employer] [id number] 2016-Pres [phone] PO DAVID X Cost Share BLUE SHIELD BLUE COST ent [phone] [place] [address] (Home) [place] [address]
--- OUTSIDE RECORDS SUMMARY | 2021-09-05 07:58 | XMS_ITS | Encounter Summary ---
:1945 Author Organization [facility] Address [address] [place] [address] Care Team Providers Name Role Phone Unavailable Primary Care Provider Unavailable Reason for Referral MRI/CAT/PET Scan (Routine) - Closed Specialty Diagnoses / Procedures Referred By Contact Refer red To Contact Radiology Diagnoses Coronary Stent Status Post Pain Chest Atypical Vignesh Currie M.D. [facility] Procedures CT Cardiac Angiogram with Coronary Arteries with IV Contrast CT Cardiac Angiogram with IV Contrast [address] [place] [phone] Referral ID Status Reason Start Date Expiration Date Visits Requ ested Visits Authorized [id number] Closed 07/25/2020 07/25/2021 1 1 Reason for Visit Reason Comments Shortness of Breath Appointment Request (Routine) - Closed Specialty Diagnoses / Procedures Referred By Contact Refer red To Contact Cardiovascular Disease Referral ID Status Reason Start Date Expiration Date Visits Requ ested Visits Authorized [id number] Closed 07/18/2020 07/18/2021 1 1 Encounter Details Date Type Department Care Team Description 07/25/2020 Office Visit Department of Vignesh Currie Pain Chest Atypical (Primary Dx); Cardiovascular Diseases Lee Lance Anemia; in [place], [address] [place] [address] Coronary Stent Status Post [place] [address] [phone] [place], [place] [phone] (Work) [phone] Social History Tobacco Use Types Packs/Day Years [...] Sign Reading Time Taken Comments Blood Pressure 125/60 07/25/2020 3:15 PM CDT Pulse 75 07/25/2020 3:15 PM CDT Temperature - - Respiratory Rate - - Oxygen Saturation 98% 07/25/2020 3:15 PM CDT Inhaled Oxygen Concentration - - Weight 83 kg (182 lb 15.7 oz) 07/25/2020 3:15 PM CDT Height - - Body Mass Index 33.67 12/15/2019 9:16 AM CDT documented in this encounter Progress Notes Vignesh Currie M.D. - 07/25/2020 3:04 PM CDT CHIEF COMPLAINT/REASON FOR VISIT Atypical chest pain, back and shoulder discomfort. ASA Ceja is a pleasant 75-year-old female from [place], [place]. She is known to me from priorconsultation. She carries a history of ischemic heart disease with prior percutaneous coronary intervention to the LAD back in 2014. Presentation at that time was atypical chest pain as documented inDchetan Haile's cardiology progress note. Marcial actually requested this consult due to some new concerns. She has a difficult time articulating exactly how she feels, but describes a sensation of feeling achy and weak with activity. She will feel this up in her shoulders. She is concerned that this is related to her heart. She has also been more aware of effort intolerance for example when walkingup the stairs or doing other chores around the house. This seems to have progressed and become morefrequent. She is not had classical substernal chest pain. She denies dizziness or lightheadedness. She has had no falls or fainting. In tandem with her more atypical symptoms, she has had some increase in lower extremity swelling. Towards the end of the stay, she describes her calves and feet is being very firm and tight. She props them up at night on a pillow and the next morning the swelling improves, but does not completely go away. She has a historical prescription for Lasix, but has not used this recently. Marcial is unsure of her blood pressure or heart rate during her symptom episodes as described above. I did obtain some limited blood work prior to this consult. She has stable anemia with a hemoglobinjust around 11 g/dL. Her hemoglobin A1c is actually the best I have seen in quite some time, it is 7.7%. Her basic metabolic panel shows an increasing creatinine to 1.49 which is up from 1.3 in 2018. I did compare it with recent [facility] blood work. This is a bit higher than her most recent basic metabolic panel in February, but is similar to prior readings back in August of 2019. OBJECTIVE PHYSICAL EXAMINATION Vital Signs: Weight 83 kg. Heart rate 75 regular, blood pressure 125/60/ General: This is an elderly female sitting comfortably in no acute distress. Eyes: Anicteric. Ears, Nose, and Throat: Mucous membranes are covered by cloth mask. Lungs: Clear to auscultation. Heart: Central venous pressure appears normal. Venous pulsations are visualized only in the supraclavicular fossa at varying levels of recumbency. Cardiac auscultation is normal. Specifically, therhythm is regular without audible murmur. Extremities: There is 1-2+ pitting edema predominantly at the dorsum of the feet and ankles and to a lesser extent pretibial of the lower shins. Skin: No visible ecchymosis, bruising or breakdown. Psych: Alert, oriented, responding appropriately. Neuro: Afocal diagnoses ASSESSMENT / PLAN #1 Chronic stable dyspnea on exertion, deconditioning #2 Atypical shoulder and neck discomfort #3 Coronary artery disease with prior stenting of the LAD (2014) #4 Excess weight #5 Type 2 diabetes, with suboptimal glycemic control (hemoglobin A1c 7.7%) #6 Rheumatoid arthritis, on leflunomide #7 Hyperlipidemia, on low-dose statin #8 Hypertension, on low-dose lisinopril #9 Dizziness and unsteadiness PLAN: It was a pleasure to visit with Marcial in follow up. She requested this consult due to some newer exertional concerns which have progressed over the past several months. She has a difficult time articulating exactly what she is feeling, but describes predominantly shoulder discomfort with activity. She has not had chest pain. She likewise does not describe exertional dyspnea, but has felt more achy and weak. Given the shoulder discomfort, she is concerned that this could be a manifestation of underlying coronary artery disease. I note from prior documentation, her original presentation with coronary artery disease was atypical and ultimately led to stenting of the LAD back in 2014. Stress test at that time was unrevealing. Given her atypical presentation, I would favor a CT coronaryangiogram. This will help assess for stent patency. Her cardiac exam is otherwise normal apart from lower extremity swelling. I am going to have her take a very low dose of Lasix 10 mg as needed. She was given 4 doses. I will notify Marcial of the results of the CT scan when available. I have also asked her to monitorblood pressure and heart rate during her episodes as this may provide some additional clarifying information. She has had a modest elevation of creatinine on most recent blood draw, but she has had similar fluctuations in the past, as I have confirmed on reviewing the outside blood work at [facility]. I think it would be reasonable to repeat a basic metabolic panel in a couple of weeks. I also ordered a ferritin to be added to her stored specimen. She has a history of chronic anemia, but I do not see that she has had prior iron studies. Vignesh Currie M.D. CT CT Job ID: [id number] documented in this encounter Plan of Treatment Scheduled Orders Name Type Priority Associated Diagnoses Order S chedule Ferritin Lab Add-On Anemia Expected: 07/25 (Approximate), Expires: 2023 documented as of this encounter Results CT Cardiac Angiogram with Coronary Arteries with IV Contrast (08/01/2020 12:08 PM CDT) Anatomical Region Laterality Modality Cardiac, Cardiovascular RST LOS, N/A Compute d Tomography, Computed Thoracic ARZ LOS, Cardiovascular FLA Jose ography LOS Specimen (Source) Anatomical Collection Method Collection Time Re ceived Time Location / / Volume Laterality 08/01/2020 2:39 PM CDT Impressions 08/01/2020 2:52 PM CDT 1. Scattered calcific plaques in the LAD, LCx and RCA with associated minimal to mild luminal stenosis. Patent stent in t he mid LAD. Suspected moderate stenosis immediately distal to the stent; CAD-RAD S3/S. 2. Mild left atrial enlargement. Mild di lation of main pulmonary artery. Narrative 08/01/2020 2:52 PM CDT EXAM: ??CT CARDIAC ANGIOGRAM WITH CORONARY ARTERIES WITH IV CONTRAST Including 3D image post-processing. COMPARISON: ??None ? FINDINGS: ? CORONARY ARTERIES: ?? Origins: Normal origin and course of the coronary arteries. ? Dominance: Right ?? Left Main Coronary: Minimal plaque witho ut stenosis. Left Anterior Descending: ??Predominantl y calcific plaques in the proximal segment with associated minimal to mild luminal stenosis. Patent stent in the mid LAD. Just immediately distal to the stent there is a noncalcific plaque with moderate luminal stenosis. Patent diagon al branches. Left Circumflex: Calcific plaques in the proximal LCx and obtuse marginal branch with minimal to mild luminal stenosis. Right Coronary: Scattered calcific plaqu es in the proximal and mid segment with minimal luminal stenosis. Patent posteri or descending and posterolateral branches. ?? OTHER CARDIAC FINDINGS: ?? * ??Normal biventricular chamber size an d global systolic function. No regional wall motion abnormalities. No resting 1s t pass perfusion defect. * ??Mild left atrial enlargement. Small diverticulum from the roof of left atrium. * ??No tumor or thrombus in the left hea rt chambers. * ??Trileaflet aortic valve. Mild thicke jefferson of the mitral valve leaflets. * ??Trace pericardial fluid, likely phys iological. No thickening or calcification. * ??Dilated main pulmonary artery measur ing 30 mm. * ??Conventional pulmonary venous anatom y. No anomalous drainage or stenosis. ADDITIONAL FINDINGS: ? Mild bronchial thickening and scattered areas of subsegmental atelectasis. Small hiatal hernia. Mild degenerative changes of the spine. CAD-RADS CATEGORIES: (based on most pro re single lesion) ?? 0: 0%, No stenosis ?? 1: 1-24%, Minimal stenosis ?? 2: 25-49%, Mild stenosis ?? 3: 50-69%, Moderate stenosis ?? 4: 70-99%, Severe stenosis ?? 5: 100%, Occluded ? Modifiers: ??N: Non-diagnostic segment(s ) ??S: Stent ??G: Graft ??V: Vulnerable plaque ? Procedure Note Noah Knutson M.B.B.S., M.D. - 07/17 EXAM: CT CARDIAC ANGIOGRAM WITH CORONAR Y ARTERIES WITH IV CONTRAST Including 3D image post-processing. COMPARISON: None FINDINGS: CORONARY ARTERIES: Origins: Normal origin and course of the coronary arteries. Dominance: Right Left Main Coronary: Minimal plaque witho ut stenosis. Left Anterior Descending: Predominantly calcific plaques in the proximal segment with associated minimal to mild luminal stenosis. Patent stent in the mid LAD. Just immediately distal to the stent there is a noncalcific plaque with moderate luminal stenosis. Patent diagon al branches. Left Circumflex: Calcific plaques in the proximal LCx and obtuse marginal branch with minimal to mild luminal stenosis. Right Coronary: Scattered calcific plaqu es in the proximal and mid segment with minimal luminal stenosis. Patent posteri or descending and posterolateral branches. OTHER CARDIAC FINDINGS: * Normal biventricular chamber size and global systolic function. No regional wall motion abnormalities. No resting 1s t pass perfusion defect. * Mild left atrial enlargement. Small d iverticulum from the roof of left atrium. * No tumor or thrombus in the left hear t chambers. * Trileaflet aortic valve. Mild thicken ing of the mitral valve leaflets. * Trace pericardial fluid, likely physi ological. No thickening or calcification. * Dilated main pulmonary artery measuri ng 30 mm. * Conventional pulmonary venous anatomy . No anomalous drainage or stenosis. ADDITIONAL FINDINGS: Mild bronchial thickening and scattered areas of subsegmental atelectasis. Small hiatal hernia. Mild degenerative changes of the spine. CAD-RADS CATEGORIES: (based on most pro re single lesion) 0: 0%, No stenosis 1: 1-24%, Minimal stenosis 2: 25-49%, Mild stenosis 3: 50-69%, Moderate stenosis 4: 70-99%, Severe stenosis 5: 100%, Occluded Modifiers: N: Non-diagnostic segment(s) S: Stent G: Graft V: Vulnerable plaque IMPRESSION: 1. Scattered calcific plaques in the LAD , LCx and RCA with associated minimal to mild luminal stenosis. Patent stent in t he mid LAD. Suspected moderate stenosis immediately distal to the stent; CAD-RAD S3/S. 2. Mild left atrial enlargement. Mild di lation of main pulmonary artery. Vignesh ZIMMERMAN CT PROCEDURES documented in this encounter Visit Diagnoses Diagnosis Pain Chest Atypical - Primary Anemia Coronary Stent Status Post Coronary Stent Status Post Pain Chest Atypical documented in this encounter Additional Health Concerns Assessment Noted Time PHQ-9 Depression Total Score: 7 06/21/2014 9:20 AM CD T documented as of this encounter
--- OUTSIDE RECORDS SUMMARY | 2021-09-05 07:58 | XMS_ITS | Encounter Summary ---
:1945 Author Organization [facility] Address [address] [place] [address] Care Team Providers Name Role Phone Unavailable Primary Care Provider Unavailable Reason for Visit Reason Comments COVID Inquiry Encounter Details Date Type Department Care Team Description 07/26/2020 Clinical Communication Department of Vignesh Currie OVID Inquiry Cardiovascular Medicine Lee Lance in [facility] [address] [facility] [address] [place] [id number] [phone] Social History Tobacco Use Types Packs/Day Years [...] this encounter Miscellaneous Notes Telephone Encounter - Dinorah Pedraza Jerilyn - 07/26/2020 2:51 PM CDT What is the purpose of the call?: Standard Appointment Process Standard Appointment Process Have you tested positive for COVID-19 in the last 20 days OR do you have a pending COVID-19 test because you had symptoms?: No, neither apply What region is the appointment being requested?: Less than 14 days [place] In the past 14 days are any of the following symptoms new to you and not related to an existing health condition?: No symptoms noted In the past 14 days have you had close contact* with a person who has a LABORATORY CONFIRMED case of COVID-19?: No exposure noted, follow appt process (End Screening) Plan: Endpoint recommendation: Followed regional OTG *Reminder if sending patient for testing in [facility] or [facility], route encounter to the correct testing pool. documented in this encounter Plan of Treatment Not on filedocumented as of this encounter Visit Diagnoses Not on filedocumented in this encounter Additional Health Concerns Assessment Noted Time PHQ-9 Depression Total Score: 7 06/21/2014 9:20 AM CD T documented as of this encounter
--- OUTSIDE RECORDS SUMMARY | 2021-09-05 07:58 | XMS_ITS | Encounter Summary ---
:1945 Author Organization [facility] Address [address] [place] [address] Care Team Providers Name Role Phone Unavailable Primary Care Provider Unavailable Reason for Referral MRI/CAT/PET Scan (Routine) - Closed Specialty Diagnoses / Procedures Referred By Contact Refer red To Contact Radiology Diagnoses Coronary Stent Status Post Pain Chest Atypical Vignesh Currie M.D. [facility] Procedures CT Cardiac Angiogram with Coronary Arteries with IV Contrast CT Cardiac Angiogram with IV Contrast 200 [place] [address] Referral ID Status Reason Start Date Expiration Date Visits Requ ested Visits Authorized [id number] Closed 07/25/2020 07/25/2021 1 1 Reason for Visit MRI/CAT/PET Scan (Routine) - Closed Specialty Diagnoses / Procedures Referred By Contact Refer red To Contact Radiology Diagnoses Coronary Stent Status Post Pain Chest Atypical Vignesh Currie M.D. [facility] Procedures CT Cardiac Angiogram with Coronary Arteries with IV Contrast CT Cardiac Angiogram with IV Contrast [address] [place], [place] [address] Referral ID Status Reason Start Date Expiration Date Visits Requ ested Visits Authorized [id number] Closed 07/25/2020 07/25/2021 1 1 Encounter Details Date Type Department Care Team Description 08/01/2020 Hospital Encounter Department of Vignesh Currie Stent Status Post; Radiology adrien Lance M.D. Pain Chest Atypical [place], [address] [place], [place] 200 [facility] [address] [place], [place] [phone] (Work) [phone] Social History Tobacco Use Types Packs/Day Years [...] Sign Reading Time Taken Comments Blood Pressure 134/55 08/01/2020 12:12 PM CDT Pulse 83 08/01/2020 12:12 PM CDT Temperature - - Respiratory Rate 16 08/01/2020 12:12 PM CDT Oxygen Saturation 100% 08/01/2020 12:12 PM CDT Inhaled Oxygen Concentration - - Weight 82.8 kg (182 lb 8.7 oz) 08/01/2020 11:10 AM CDT Height 160.8 cm (5' 3.31) 08/01/2020 11:10 AM CDT Body Mass Index 32.02 08/01/2020 11:10 AM CDT documented in this encounter Medications at Time of Discharge [...] U-100 19 units, in the AM 0 02/2018 INSULIN 100 unit/mL (3 mL) [...] a day. Taking only 1 tablet daily owwqtjww-sjzjuduok-eezhhoi 0 9 06/26/2021 hasone (MAXITROL) 3.5mg/mL-10,000 unit/mL-0.1 % ophthalmic suspension nitroglycerin (NITROSTAT) Place 1 tablet (0.4 10 tablet 3 0 07/29/2018 02/20/2021 0.4 mg SL tablet mg total) under the tongue every 5 (five) minutes as needed for chest pain. rosuvastatin (CRESTOR) 5 Take 2.5 mg by 0 06/26/2021 mg tablet mouth daily. documented as of this encounter Nursing Notes Cate Moreau R.N. - 08/01/2020 11:[address] Cardiac Nitroglycerin Administration Screening: Is patient scheduled for a radiology exam with nitroglycerin? Yes If yes???continue. Is patient???s systolic blood pressure greater than appropriate level per age (per table in med ref document)? Yes If yes???continue. Does patient report a history of know hypersensitivity to nitroglycerin? No If no...Continue. Does patient report having a history of aortic stenosis or hypertrophic cardiomyopathy (HOCM)? No Ifno???continue. Is patient currently wearing a nitroglycerin patch or has taken isosorbide dinitrate or isosorbide mononitrate in the past 48 hours? No If no???continue. Has patient taken Sildenafil (Viagra) or (Revatio), Vrdenafil (Levitra), Tadalafil (Cialis) or (Adcirca) within 48 hours? No If no???continue. User message: Nitro is administered in scan room according to scanning sequence. documented in this encounter Plan of Treatment Not on filedocumented as of this encounter Procedures Procedure Name Priority Date/Time Associated Comments Diagnosis CT CARDIAC RAD - Routine 08/01/2020 12:08 Coronary Stent Results for this ANGIOGRAM WITH (most inpatients PM CDT Status Post procedure are in CORONARY ARTERIES and all Pain Chest the result s WITH IV CONTRAST outpatients) Atypical section. documented in this encounter Results CT Cardiac Angiogram with [...] plaque ? Procedure Note Noah Knutson M.B.B.S., MAlfredo. - 07/17 EXAM: CT CARDIAC ANGIOGRAM WITH [...] documented in this encounter Visit Diagnoses Diagnosis Coronary Stent Status Post Pain Chest Atypical documented in this encounter Administered Medications Inactive Administered Medications - up to 3 most recent administrations Medication Order MAR Action Action Date Dose Rate Site iohexoL 350 mg iodine/mL Given 08/01/2020 12:03 PM 82 mL Right Forearm solution 1-200 mL CDT (OMNIPAQUE) 1-200 mL, intravenous, Once in imaging, contrast, Starting on Thu08/01/20 at 1122, For 1 dose, Imaging Protocol Orders, Dose per Radiant Medication Guidelines nitroglycerin SL tablet 0.4-0.8 mg Given 08/01/2020 11:54 AM CDT 0.4 mg Tongue (NITROSTAT) 0.4-0.8 mg, sublingual, Once, On Thu08/01/20 at 1130, For 1 dose, Imaging Protocol Orders, May administer up to 3 doses per episode. Dissolve under the tongue. Do NOT crush, chew, split or swallow tablet. sodium chloride (PF) 0.9 % Given 08/01/2020 12:04 PM CDT 38 mL Right Forearm injection 1-100 mL 1-100 mL, intravenous, Once, On Thu08/01/20 at 1130, For 1 dose, Imaging Protocol Orders documented in this encounter Additional Health Concerns Assessment Noted Time PHQ-9 Depression Total Score: 7 06/21/2014 9:20 AM CD T documented as of this encounter
--- OUTSIDE RECORDS SUMMARY | 2021-09-05 07:58 | XMS_ITS | Encounter Summary ---
:1945 Author Organization [facility] Address [address] [place] [address] Care Team Providers Name Role Phone Unavailable Primary Care Provider Unavailable Reason for Visit Reason Comments Infection Encounter Details Date Type Department Care Team Description 08/13/2021 Nurse Triage Department of [facility] Maliha Faulkner, [facility] Medicine, [facility], in M.S.N., R.N. [place], [place] [address] [place] [address] Social History Tobacco Use Types Packs/Day Years [...] this encounter Miscellaneous Notes Telephone Encounter - Maliha Faulkner, M.S.Jose Alberto., R.N. - 08/13/2021 8:43 AM CDT Chief Complaint / Reason for Call Patient is a 76 y.o. female calling regarding Infection. Assessment Concern: Gout surgery on Left index Finger on 07/09/21 from an outside facility out of [place]. She is not concerned with signs of infection due to mild pain, redness, and swelling of finger. Also stating she has concerns of generalized extremity weakness following surgery, having a difficulty time lifting arms and legs. Denies any SOB, chest pain, necrotic tissue, drainage, fevers, chills. Sinceprocedure was done at an outside facility with no PCP here at [place], it was recommended she follow back up with the surgical facility that she had it done at for most efficient and effective care. Patient was hoping to see an orthopedic here closer in proximity to her, but it was recommended that sincesurgery was not long ago with new concerns, she follow back up with them for the sake of time. Patient was in agreeance with plan and had no further questions. Present for: 2 weeks Home cares tried: Unknown Calling to request: Orthopedic appointment The recommended disposition is The following information may be helpful. documented in this encounter Plan of Treatment Not on filedocumented as of this encounter Visit Diagnoses Not on filedocumented in this encounter Additional Health Concerns Assessment Noted Time PHQ-9 Depression Total Score: 7 06/21/2014 9:20 AM CD T documented as of this encounter
--- OUTSIDE RECORDS SUMMARY | 2021-09-05 07:59 | XMS_ITS | Encounter Summary ---
:1945 Author Organization [facility] Address [address] [place] [address] Care Team Providers Name Role Phone Unavailable Primary Care Provider Unavailable Encounter Details Date Type Department Care Team Description 05/07/2018 Clinical Support Department of Ai Patel C.N.PJairo [address] [place] [address] Vertigo Benign Rehabilitation Luciana Ferguson, P.T. [address] [place] [phone] Paroxysmal Services in [address] [phone] Social History Tobacco Use Types Packs/Day Years Used Date Smoking Tobacco: Never Smokeless Tobacco: Never Alcohol Habits Answer Date Recorded How often [...] encounter Progress Notes Luciana Ferguson P.T. - 05/07/2018 10:30 AM CDT Physical Therapy Outpatient Treatment Note SUBJECTIVE Patient's Name: Marcial Adams Referring Provider: Jer Bran Visit Diagnosis: 1. Vertigo Benign Paroxysmal Positional Right Payor: MEDICARE / Plan: MEDICARE A AND B / Product Type: Medicare / No Data Recorded Epic Visit Count: 5 Patient comments: Patient reports a repeat onset of positional vertigo this morning when rolling tothe left to get out of bed. Patient did have complete resolution of symptoms last time. This is a new onset. Symptoms include dizziness, spinning and disequilibrium. OBJECTIVE Pain: no pain reported Cervical range of motion is within normal limits. Hallpike Karan testing was positive for left posterior canal nystagmus latency of 3 sec duration 7 sec. TREATMENT Treatment today consisted of: Performed canalith repositioning for the left posterior canal x2. Home Exercise Program/Education: If patient has symptoms in the morning her spouse will assist her in performing left posterior canal maneuvers. Patient and spouse have all handouts and been instructed on the technique. Both verbalized understanding. Maneuvers will not be performed if patient wakes up symptom-free. Pt reports good compliance with her HEP. Assessment Clinical Impression: Patient tolerated treatment session with symptom reproduction. Functional Goals and Timeframes: PT Goal #1: Patient be symptom free in 2 weeks. Plan Plan for next session: Patient will contact therapist if symptoms do not resolve. Time Spent with Patient PT Evaluation (min): 20 min Time Calculation Total Treatment Time (min): 20 min Functional G-code Worksheet Luciana Ferguson PKarthik documented in this encounter Plan of Treatment Not on filedocumented as of this encounter Visit Diagnoses Diagnosis Vertigo Benign Paroxysmal Positional Rig ht documented in this encounter Additional Health Concerns Assessment Noted Time PHQ-9 Depression Total Score: 7 06/21/2014 9:20 AM CD T documented as of this encounter
--- OUTSIDE RECORDS SUMMARY | 2021-09-05 07:59 | XMS_ITS | Encounter Summary ---
:1945 Author Organization [facility] Address [address] [place] [address] Care Team Providers Name Role Phone Unavailable Primary Care Provider Unavailable Encounter Details Date Type Department Care Team Description 07/27/2018 Hospital Encounter Department of Vignesh Currie Artery Disease [place] [facility]; Laboratory Medicine Tamia Lance. Diabetes Mellitus Type 2 (HCC); in [place] [phone] [facility] [phone] [place], [place] (Work) [phone] Social History Tobacco Use [...] Sig Dispensed Refills Start Date End Date ALPRAZolam (XANAX) 0.5 mg Take 1 tablet by 0 03/19 tablet mouth every 8 (eight) hours as needed for anxiety. ASPIRIN ORAL Take 81 mg by mouth 0 03/02/2012 daily. Take with food for heart health. BASAGLAR KWIKPEN U-100 19 units, in the AM 0 02/2018 INSULIN 100 unit/mL (3 mL) injection blood sugar diagnostic 0 06/30/2018 (Accu-Chek Alison Plus test strp) strips clindamycin (CLINDAGEL) 1 0 07/15/2018 % gel ergocalciferol (DRISDOL) Take 50,000 Units 0 50,000 [...] 06/26/2021 (PRINIVIL,ZESTRIL) 2.5 mg mouth daily. tablet nitroglycerin (NITROSTAT) Place under the 0 01/2607/29/2018 0.4 mg SL tablet tongue as needed. rosuvastatin (CRESTOR) 5 Take 2.5 mg by 0 06/26/2021 mg tablet mouth daily. SITagliptin (JANUVIA) 50 Take 50 mg by mouth 0 12/15/2019 mg tablet daily. documented as of this encounter Plan of Treatment Not on filedocumented as of this encounter Procedures Procedure Name Priority Date/Time Associated Diagnosis Comme nts LIPID PANEL, S Routine 07/27/2018 10:23 AM Coronary Artery Res ults for this CDT Disease [place] [facility] procedure are in the Diabetes Mellitus results se ction. Type 2 (HCC) Vertigo documented in this encounter Results (ABNORMAL) Lipid Panel (07/27/2018 10:23 AM CDT) athologist Signature Cholesterol, 147 mg/dL 07/27/2018 Total 11:24 AM CDT Comment: ----REFERENCE VALUE---- Desirable: < 200 Borderline high: 200 - 239 High: > or = 240 Triglycerides 203 (H) mg/dL 07/27/2018 11:24 AM CDT Comment: ----REFERENCE VALUE---- Normal: <150 Borderline high: 150-199 High: 200-499 Very high: > or =500 Cholesterol, HDL, S 45 (L) >=50 mg/dL 07/27/2018 11:24 AM CDT Calculated LDL 61 mg/dL 07/27/2018 11:24 AM CDT Comment: ----REFERENCE VALUE---- Desirable: <100 Above Desirable: 100-129 Borderline high: 130-159 High: 160-189 Very high: > or =190 Cholesterol, Non-HDL, Calculated 102 mg/dL 019 11:24 AM CDT Comment: ----REFERENCE VALUE---- Desirable: <130 Above Desirable: 130-159 Borderline high: 160-189 High: 190-219 Very high: > or =220 Specimen Anatomical Collection Method Collection Time Receive d Time (Source) Location / / Volume Laterality Blood (Blood, 07/27/2018 10:23 07/27/2018 Venous) AM CDT 10:24 AM CDT Vignesh Currie M.D. LAB BLOOD ADD-ON Performing Organization Address City/State/ZIP Code Phon e Number [facility]- [id number] [address] [place] [facility] documented in this encounter Visit Diagnoses Diagnosis Coronary Artery Disease [place] [facility] Diabetes Mellitus Type 2 (HCC) Vertigo documented in this encounter Additional Health Concerns Assessment Noted Time PHQ-9 Depression Total Score: 7 06/21/2014 9:20 AM CD T documented as of this encounter
--- OUTSIDE RECORDS SUMMARY | 2021-09-05 07:59 | XMS_ITS | Encounter Summary ---
:1945 Author Organization [facility] Address [address] [place] [address] Care Team Providers Name Role Phone Unavailable Primary Care Provider Unavailable Encounter Details Date Type Department Care Team Description 01/14/2018 Nurse Triage Department of [facility] Kyra Howe R.N. Medicine, [facility], in [address] [place], [place] [address] [place] [address] [place] [address] [phone] Social History Tobacco Use Types Packs/Day Years [...]
--- OUTSIDE RECORDS SUMMARY | 2021-09-05 07:59 | XMS_ITS | Encounter Summary ---
:1945 Author Organization [facility] Address [address] [place] [address] Care Team Providers Name Role Phone Unavailable Primary Care Provider Unavailable Reason for Visit Reason Comments Follow-up Encounter Details Date Type Department Care Team Description 02/24/2019 Office Visit Department of Janak Hadley Blephari tis Left (Primary Dx); Ophthalmology in Eric Moe M.D. Blepharitis [place], [place] [address] [place] [phone] Social History Tobacco Use Types Packs/Day Years [...] documented as of this encounter Progress Notes Janak Hadley M.D. - 02/24/2019 12:30 PM CST Marcial Adams was seen today for Follow-up #1 Blepharitis Left #2 Blepharitis Right Blepharitis has greatly improved, but patient has stopped all therapy. I advised patient resume regimen and use artificial tears - can adjust frequency as need. 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
--- OUTSIDE RECORDS SUMMARY | 2021-09-05 07:59 | XMS_ITS | Encounter Summary ---
:1945 Author Organization [facility] Address [address] [place] [address] Care Team Providers Name Role Phone Unavailable Primary Care Provider Unavailable Encounter Details Date Type Department Care Team Description 08/03/2017 Hospital Encounter Department of Jenny Hayes, [facility] lipidemia Laboratory Medicine in Erik Jean-Baptiste M.D. [place], [id number] [place] [address] [phone] (Work) [phone] Social History Tobacco Use Types Packs/Day Years [...] daily. Take with food for heart health. ergocalciferol (DRISDOL) Take 50,000 Units 0 50,000 Unit capsule by mouth once a week. glipiZIDE (for_GLUCOTROL) Take 10 mg by mouth 0 0 07/03/2016 5 mg tablet every morning before breakfast. leflunomide (ARAVA) 20 mg Take 20 mg by mouth 0 tablet daily. atorvastatin (for_LIPITOR) Take 1 tablet by 0 04/26/2018 40 mg tablet mouth at bedtime. indomethacin (for_INDOCIN) Take 1 capsule by 0 04/26/2018 25 mg capsule mouth 3 (three) times a day as needed for pain. levothyroxine Take 1 tablet by 0 12/25/201604/26 (for_SYNTHROID, mouth daily. For LEVOTHROID) 75 mcg tablet thyroid replacement. metFORMIN XR Take 2 tablets by 0 01/09/201604/26 (for_GLUCOPHAGE-XR) 500 mg mouth daily with 24 hr tablet dinner. nitroglycerin (NITROSTAT) Place under the 0 01/2607/29/2018 0.4 mg SL tablet tongue as needed. predniSONE (DELTASONE) 5 Take 5 mg by mouth 0 04/26/2018 mg tablet daily. Will be tapering SITagliptin (JANUVIA) 50 Take 50 mg by mouth 0 12/15/2019 mg tablet daily. documented as of this encounter Plan of Treatment Not on filedocumented as of this encounter Procedures Procedure Name Priority Date/Time Associated Diagnosis Comme nts LIPID PANEL, S Routine 08/03/2017 9:11 Hyperlipidemia Results for this AM CDT procedure are i n the results section. BASIC METABOLIC Routine 08/03/2017 9:11 Hyperlipidemia Result s for this PANEL, S/P AM CDT procedure are i n the results section. documented in this encounter Results (ABNORMAL) Lipid Panel (08/03/2017 9:11 AM CDT) P athologist Signature Cholesterol, 258 (H) mg/dL 08/03/2017 [facility] Total 9:56 AM CDT [facility] Comment: ----REFERENCE VALUE---- Desirable: < 200 Borderline high: 200 - 239 High: > or = 240 Triglycerides 149 mg/dL 08/03/2017 9:56 AM CD T [facility] Comment: ----REFERENCE VALUE---- Normal: <150 Borderline high: 150-199 High: 200-499 Very high: > or =500 Cholesterol, HDL, S 62 >=50 mg/dL 08/03/2017 9:[address] [facility] Calculated LDL 166 (H) mg/dL 08/03/2017 9:56 AM CDT [facility] Comment: ----REFERENCE VALUE---- Desirable: <100 Above Desirable: 100-129 Borderline high: 130-159 High: 160-189 Very high: > or =190 Cholesterol, Non-HDL, 196 (H) mg/dL 08/03/2017 9:56 A M CDT [facility] Comment: ----REFERENCE VALUE---- Desirable: <130 Above Desirable: 130-159 Borderline high: 160-189 High: 190-219 Very high: > or =220 Specimen Anatomical Collection Method Collection Time Receive d Time (Source) Location / / Volume Laterality Blood 08/03/2017 9:11 08/03/2017 AM CDT 9:12 AM CDT Erik Hayes M.D. LAB BLOOD ADD-ON Performing Organization Address City/State/ZIP Code Phon e Number [facility]- [id number] [place] [address] LAB (ABNORMAL) BMP (Basic Metabolic Panel) (08/03/2017 9:11 AM CDT) P athologist Signature Potassium, S 3.9 3.6 - 5.2 08/03/2017 [facility] mmol/L 9:56 AM [facility] Sodium, S 143 135 - 145 08/03/2017 [facility] mmol/L 9:56 AM [facility] Chloride, S 106 98 - 107 08/03/2017 [facility] mmol/L 9:56 AM [facility] Bicarbonate, S 25 22 - 29 08/03/2017 [facility] mmol/L 9:56 AM [facility] Anion Gap 12 7 - 15 08/03/2017 [facility] 9:56 AM [facility] BUN (Blood 27 (H) 6 - 21 08/03/2017 [facility] Urea mg/dL 9:56 AM [facility] Nitrogen), [facility] [employer] [facility] Creatinine, S 1.27 (H) 0.59 - 08/03/2017 [facility] 1.04 mg/dL 9:56 AM [facility] eGFR-Non 42 (L) >=60 08/03/2017 [facility] Black/ mL/min/BSA 9:56 AM CDT [facility] Comment: ----ADDITIONAL INFORMATION---- Estimated GFR calculated using the 2009 CKD_EPI creatinine equation. eGFR-Black/ 49 (L) >=60 mL/min/BSA 08/03/2017 9:5 6 [facility] [place] CDT [facility] Comment: ----ADDITIONAL INFORMATION---- Estimated GFR calculated using the 2009 CKD_EPI creatinine equation. Calcium, Total, S 9.8 8.8 - 10.2 mg/dL 08/03/2017 9:56 AM CDT [facility] Glucose, S 140 70 - 140 mg/dL 08/03/2017 9:56 AM CDT [facility] Specimen Anatomical Collection Method Collection Time Receive d Time (Source) Location / / Volume Laterality Blood 08/03/2017 9:11 08/03/2017 AM CDT 9:12 AM CDT Erik Hayes M.D. LAB BLOOD ADD-ON Performing Organization Address City/State/[facility] Code Phon e Number [facility]- [id number] [place] [address] [place] [facility] documented in this encounter Visit Diagnoses Diagnosis Hyperlipidemia documented in this encounter Additional Health Concerns Assessment Noted Time PHQ-9 Depression Total Score: 7 06/21/2014 9:20 AM CD T documented as of this encounter
--- OUTSIDE RECORDS SUMMARY | 2021-09-05 07:59 | XMS_ITS | Encounter Summary ---
:1945 Author Organization [facility] Address [address] [place] [address] Care Team Providers Name Role Phone Unavailable Primary Care Provider Unavailable Reason for Referral Outpatient (Routine) - Closed Specialty Diagnoses / Procedures Referred By Contact Refer red To Contact Cardiovascular Disease Vignesh Currie [facility] [place] [facility] M.D. [address] [place] [phone] Referral ID Status Reason Start Date Expiration Date Visits Requ ested Visits Authorized [id number] Closed 07/29/2018 07/29/2019 1 1 Reason for Visit Reason Comments Follow-up Outpatient (Routine) - Closed Specialty Diagnoses / Procedures Referred By Contact Refer red To Contact Cardiovascular Disease Vignesh Currie [facility] [place] [facility] M.D. [address] [place] [phone] Referral ID Status Reason Start Date Expiration Date Visits Requ ested Visits Authorized [id number] Closed 04/26/2018 04/26/2019 1 1 Encounter Details Date Type Department Care Team Description 07/29/2018 Office Visit Department of Vignesh Currie art Chronic Disease (Primary Dx); Cardiovascular Diseases [facility] Diabetes Mellitus Type 2 (HCC); in [place], [address] [place] [address] [address] [address] [place], [place] [phone] (Work) [phone] Social History Tobacco Use Types Packs/Day Years [...] Sign Reading Time Taken Comments Blood Pressure 128/72 07/29/2018 10:17 AM CDT Pulse 75 07/29/2018 10:17 AM apical regul ar CDT Temperature - - Respiratory Rate - - Oxygen Saturation - - Inhaled Oxygen Concentration - - Weight 81.4 kg (179 lb 7.3 07/29/2018 10:17 AM oz) CDT Height 157 cm (5' 1.81) 07/29/2018 10:17 AM CDT Body Mass Index 33.02 07/29/2018 10:17 AM CDT documented in this encounter Progress Notes Vignesh Currie M.D. - 07/29/2018 9:54 AM CDT SUBJECTIVE CHIEF COMPLAINT/REASON FOR VISIT Dyspnea on exertion. HISTORY OF PRESENT ILLNESS Marcial is a pleasant 73-year-old female from [place], [place]. She is known to me from recent visit back in April. At that time, she identified dyspnea with exertion and some occasional shoulder and neck tightness. She was counseled on a graduated walking program. With this, her dyspnea andneck and shoulder discomfort have improved. She has, however, noticed some increased leg tightness. This is not effort limiting and she is able to walk through the mild discomfort. She has also noticed some occasional charley horses at night. This has been temporally related to restarting Crestor. I am happy to see that with low-dose Crestor, her LDL has now come to optimal goal less than 70 mg/dL. In contrast, there has been a bump in her triglycerides to approximately 200 mg/dL. Overall, Marcial has enjoyed clinical stability. She has not had chest pain. She has had some very minor swelling of the legs, but without pitting. She has had no falls. No bleeding issues. OBJECTIVE PHYSICAL EXAMINATION Vital Signs: Heart rate 75 regular, blood pressure 128/72. Weight 81.4 kg. General: This is a healthy-appearing, elderly female, sitting comfortably in no acute distress. Eyes: Anicteric. Ear, Nose, and Throat: The mucous membranes are moist. Lungs: Symmetric chest expansion. Breathing nonlabored. Extremities: Trace edema only at the sock line. There is no pitting. Psychiatric: Alert, oriented. Responding appropriately. Neurologic: Afocal diagnoses. ASSESSMENT / PLAN #1 Dyspnea on exertion, suspect deconditioning #2 Atypical shoulder and neck discomfort #3 Coronary artery disease with prior stenting of the LAD (2014) #4 Excess weight #5 Type 2 diabetes, on oral hypoglycemics #6 Rheumatoid arthritis, on leflunomide #7 Hyperlipidemia, [...] 6 months to assess her triglyceride levels. Twenty-five minutes in consultation with greater than 50% in direct ihbb-kl-psoh counseling. CT CT Job ID: [id number] documented in this encounter Plan of Treatment Scheduled Referrals Name Type Priority Associated Order Schedule Diagnoses Cardiovascular Disease Outpatient Referral Routine Expected: office visit (clinic) 2018 (Approximate), Expires: 07/29/2021 documented as of this encounter Visit Diagnoses Diagnosis Ischemic Heart Chronic Disease - Primary Diabetes Mellitus Type 2 (HCC) Hyperlipidemia Mixed documented in this encounter Additional Health Concerns Assessment Noted Time PHQ-9 Depression Total Score: 7 06/21/2014 9:20 AM CD T documented as of this encounter
--- OUTSIDE RECORDS SUMMARY | 2021-09-05 07:59 | XMS_ITS | Encounter Summary ---
:1945 Author Organization [facility] Address [address] [place] [address] Care Team Providers Name Role Phone Unavailable Primary Care Provider Unavailable Reason for Visit Reason Onset Date Comments Results 03/25/2019 Encounter Details Date Type Department Care Team Description 03/25/2019 Clinical Communication Department of Vignesh Currie Cardiovascular Diseases [facility] in [address] [address] [place], [place] [phone] (Work) [phone] Social History Tobacco Use Types Packs/Day Years [...] this encounter Miscellaneous Notes Telephone Encounter - Magdalena Patel R.N. - 03/25/2019 1:57 PM CST mailed R TWISTER Telephone Encounter - Ashley Soria - 03/25/2019 1:48 PM CST Reason for Communication: Results Current Can Nursing/Provider leave a detailed message: Yes Did the patient refuse triage through Nurse line? (for symptom based concerns): N/A Action Needed: Patient had lab work when she saw Dr. Currie on 03/17 and is wondering if her results can mailed to her. Verified address on file. Name of Medication (if relevant): N/A R TWISTER documented in this encounter Plan of Treatment Not on filedocumented as of this encounter Visit Diagnoses Not on filedocumented in this encounter Additional Health Concerns Assessment Noted Time PHQ-9 Depression Total Score: 7 06/21/2014 9:20 AM CD T documented as of this encounter
--- OUTSIDE RECORDS SUMMARY | 2021-09-05 07:59 | XMS_ITS | Encounter Summary ---
:1945 Author Organization [facility] Address [address] [place] [address] Care Team Providers Name Role Phone Unavailable Primary Care Provider Unavailable Reason for Referral Outpatient (Routine) - Closed Specialty Diagnoses / Procedures Referred By Contact Refer red To Contact Cardiovascular Disease Vignesh Currie [facility] [place] [facility] M.[facility] [address] [place] [phone] Referral ID Status Reason Start Date Expiration Date Visits Requ ested Visits Authorized [id number] Closed 03/17/2019 03/16/2020 1 1 UGH COORDINATOR Reason for Visit Reason Comments Follow-up Outpatient (Routine) - Closed Specialty Diagnoses / Procedures Referred By Contact Refer red To Contact Cardiovascular Disease Vignesh Currie [facility] [place] [facility] M[facility] [address] [place] [phone] Referral ID Status Reason Start Date Expiration Date Visits Requ ested Visits Authorized [id number] Closed 07/29/2018 07/29/2019 1 1 Encounter Details Date Type Department Care Team Description 03/17/2019 Office Visit Department of Vignesh Currie Diabetes Me llitus Type 2 (HCC) (Primary Dx); Cardiovascular Diseases [facility] Hyperlipidemia Mixed in [place] [address] [address] [place], [place] [phone] (Work) [phone] Social History Tobacco Use Types Packs/Day Years [...] Sign Reading Time Taken Comments Blood Pressure 120/70 03/17/2019 8:59 AM BOROUGH COORDINATOR Pulse 75 03/17/2019 8:59 AM apical regul ar BOROUGH COORDINATOR Temperature - - Respiratory Rate 16 03/17/2019 8:59 AM BOROUGH COORDINATOR Oxygen Saturation - - Inhaled Oxygen Concentration - - Weight 82.7 kg (182 lb 5.1 03/17/2019 8:59 AM oz) BOROUGH COORDINATOR Height 157 cm (5' 1.81) 03/17/2019 8:59 AM BOROUGH COORDINATOR Body Mass Index 33.55 03/17/2019 8:59 AM BOROUGH COORDINATOR documented in this encounter Progress Notes Vignesh Currie M.D. - 03/17/2019 8:38 AM CST SUBJECTIVE CHIEF COMPLAINT/REASON FOR VISIT Mixed hyperlipidemia, history of coronary artery disease. HISTORY OF PRESENT ILLNESS Marcial is a pleasant 73-year-old female from [place], [place]. She is known to me from priorconsultation last spring and summer. At last visit, I prescribed Vascepa for hypertriglyceridemia in the setting of type 2 diabetes and established coronary artery disease. Thus, she fit the clinicalprofile of the REDUCE-IT trial. Unfortunately, her insurance declined the prescription for Vascepa. Instead, she is utilizing high-dose fish oil to achieve an EPA/DHA dose of 4 g per day. Unfortunately, we did not get a repeat lipid panel prior to this visit. Marcial has had improvement of her leg cramping. It is not clear that this was related to her Crestor. I made a suggestion to switch to every other day dosing of Crestor, but I think this was lost in the shuffle over the past several months. She is continued on 2.5 mg by mouth daily. I have reviewed the clinic visit notes with her recent guide cruise. Unfortunately, her hemoglobin A1c has risen further to 8.8%. This likely reflects dietary indiscretion and snacking. She is working on carbohydrate reduction. She was suggested to start on Ozempic, but she is reluctant to do so based on her reading of complications in rats. She was previously on metformin but for some reason,this was stopped in the past due to borderline kidney function. I think she would be best served by going back on the metformin. OBJECTIVE PHYSICAL EXAMINATION Vital Signs: Weight 82.7 kg. Heart rate 75, regular. Blood pressure 120/70. General: Healthy-appearing elderly female sitting comfortably in no acute distress. Eyes: Anicteric. Ears, Nose and Throat: The mucous membranes are moist. Lungs: Symmetric chest expansion. Breathing nonlabored. Extremities: Warm with trace nonpitting edema pretibial just above the sock line. Skin: No visible ecchymosis, bruising or breakdown. Psychiatric: Alert oriented responding appropriately. Neuro: Afocal. ASSESSMENT / PLAN #1 Chronic stable dyspnea on exertion, deconditioning #2 Atypical shoulder and neck discomfort #3 Coronary artery disease with prior stenting of the LAD (2014) #4 Excess weight #5 Type 2 diabetes, on oral hypoglycemics #6 Rheumatoid arthritis, on leflunomide #7 Hyperlipidemia, on low-dose statin #8 Hypertension, on low-dose lisinopril #9 Dizziness and unsteadiness It was a pleasure to visit with Marcial in followup. Unfortunately, lipid panel was not obtained prior to this visit. I have requested blood draw here in the exam room and the results are pending. She continues on Crestor 2.5 mg daily. Unfortunately, her insurance declined Vascepa for her hypertriglyceridemia. Thus, she has been on high dose zfqj-jpb-vfaysbj fish oil to achieve an EPA/DHA dose of4 g. Hopefully once Vascepa achieves guideline recommendation, we can make another attempt with Jammin Java. Her hemoglobin A1c unfortunately has risen further to 8.8%. This is based on her outpatient clinic visit note in [facility]. She was advised to consider Ozempic but she is not interested in this due to a study she read involving rats and increased tumors. She was previously on metformin, but this was discontinued due to borderline kidney function. I do not think that her mild renal insufficiency precludes the use of metformin and I have suggested she discuss this further with her guide cruise. I recognize that metformin by itself would not dramatically alter her hemoglobin [id number], nonetheless, prior RCT data has shown survival benefit on metformin. Twenty-five minutes in consultation with greater than 50% in direct bfwm-aw-ccru counseling. Vignesh Currie M.D. CT CT Job ID: [id number] UGH COORDINATOR documented in this encounter Plan of Treatment Scheduled Referrals Name Type Priority Associated Order Schedule Diagnoses Cardiovascular Disease Outpatient Referral Routine Expected: office visit (clinic) 2019 (Approximate), Expires: 03/17/2022 documented as of this encounter Procedures Procedure Name Priority Date/Time Associated Diagnosis Comme nts LIPID PANEL, S Routine 03/17/2019 9:31 AM Diabetes Mellitus R esults for this BOROUGH COORDINATOR Type 2 (HCC) procedure are in the Hyperlipidemia Mixed results section. documented in this encounter Results (ABNORMAL) Lipid Panel (03/17/2019 9:31 AM BOROUGH COORDINATOR) P athologist Signature Cholesterol, 160 mg/dL 03/17/2019 [facility]FL Total 9:51 AM BOROUGH COORDINATOR Comment: ----REFERENCE VALUE---- Desirable: < 200 Borderline high: 200 - 239 High: > or = 240 Triglycerides 195 (H) mg/dL 03/17/2019 9:51 AM BOROUGH COORDINATOR CN FL Comment: ----REFERENCE VALUE---- Normal: <150 Borderline high: 150-199 High: 200-499 Very high: > or =500 Cholesterol, HDL 49 (L) >=50 mg/dL 03/17/2019 9:51 AM CS T CNFL Calculated LDL 72 mg/dL 03/17/2019 9:51 AM BOROUGH COORDINATOR C NFL Comment: ----REFERENCE VALUE---- Desirable: <100 Above Desirable: 100-129 Borderline high: 130-159 High: 160-189 Very high: > or =190 Cholesterol, Non-HDL, Calculated 111 mg/dL 020 9:51 AM BOROUGH COORDINATOR CNFL Comment: ----REFERENCE VALUE---- Desirable: <130 Above Desirable: 130-159 Borderline high: 160-189 High: 190-219 Very high: > or =220 Specimen Anatomical Collection Method Collection Time Receive d Time (Source) Location / / Volume Laterality Blood (Blood, 03/17/2019 9:31 03/17/2019 Venous) AM BOROUGH COORDINATOR 9:31 AM BOROUGH COORDINATOR Vignesh Currie M.D. LAB BLOOD ADD-ON Performing Organization Address City/State/ZIP Code Phon e Number [place] [address] [place], [place] [phone] [place] [address] [place] [address] [address] documented in this encounter Visit Diagnoses Diagnosis Diabetes Mellitus Type 2 (HCC) - Primary Hyperlipidemia Mixed documented in this encounter Additional Health Concerns Assessment Noted Time PHQ-9 Depression Total Score: 7 06/21/2014 9:20 AM CD T documented as of this encounter
--- OUTSIDE RECORDS SUMMARY | 2021-09-05 07:59 | XMS_ITS | Encounter Summary ---
:1945 Author Organization [facility] Address [address] [place] [address] Care Team Providers Name Role Phone Unavailable Primary Care Provider Unavailable Encounter Details Date Type Department Care Team Description 04/22/2017 Hospital Encounter Department of Radiology Yady Vazquez, [place] 1705 [facility] [address] [phone] Social History Tobacco Use Types Packs/Day Years Used Date Smoking Tobacco: Never Alcohol Habits Answer Date Recorded [...] Take with food for heart health. glipiZIDE (for_GLUCOTROL) Take 10 mg by mouth 0 0 07/03/2016 5 mg tablet every morning before breakfast. atorvastatin (for_LIPITOR) Take 1 tablet by 0 [...] mouth daily with 24 hr tablet dinner. metoprolol succinate Take 0.5 tablets by 0 201608/03/2017 (for_TOPROL-XL) 25 mg 24 mouth daily. hr tablet nitroglycerin (NITROSTAT) Place under the 0 01/2607/29/2018 0.4 mg SL tablet tongue as needed. documented as of this encounter Plan of Treatment Not on filedocumented as of this encounter Procedures Procedure Name Priority Date/Time Associated Comments Diagnosis CT NECK SOFT RAD - Routine 04/22/2017 2:57 Mass Neck Results fo r this TISSUE WITH IV (most inpatients PM SYSTEMS DEVELOPMENT CONSULTANT procedure are in CONTRAST and all the results outpatients) section. documented in this encounter Results CT Neck Soft Tissue with IV Contrast (04/22/2017 2:57 PM SYSTEMS DEVELOPMENT CONSULTANT) Anatomical Region Laterality Modality Neck N/A Computed Tomography Specimen (Source) Anatomical Collection Method Collection Time Re ceived Time Location / / Volume Laterality 04/22/2017 3:21 PM SYSTEMS DEVELOPMENT CONSULTANT Impressions 04/22/2017 3:27 PM SYSTEMS DEVELOPMENT CONSULTANT IMPRESSION: 1. ??No evidence of focal mass or adenop athy in the soft tissues of the left neck. 2. ??A few small punctate calcifications are noted along the anterior right vallecula and adjacent to the lateral ri ght tongue base as detailed above, likely representing tonsillar calcificat ions and of doubtful significance. 3. ??Frothy secretions and mucosal thick ening left sphenoid sinus as detailed above. Clinical correlation with any sig ns or symptoms of acute sinusitis recommended. 4. ??Scattered calcific atheromatous ning nges. 5. ??Mild groundglass opacities in the v isualized upper lungs, essentially due to subsegmental atelectasis, though given m osaic appearance, underlying air trapping is not excluded. 6. ??No pathologic bone lesions. Narrative 04/22/2017 3:27 PM SYSTEMS DEVELOPMENT CONSULTANT EXAM: CT NECK SOFT TISSUE WITH IV CONTRAST COMPARISON: None FINDINGS: A skin marker was placed along the left anterolateral neck in the vicinity to the patient's reported palpa ble abnormality. There is no evidence of mass deep to the skin marker denoting the area of palpable abnormality. The left submandib ular gland is in this region but is normal in appearance demonstrating no fo jooa abnormality or surrounding inflammatory changes. No adenopathy in t he neck. Minimally heterogeneous appearance to the thyroid gland which de monstrates no definite focal abnormality. Laryngeal structures are no rmal in appearance though somewhat obscured due to motion artifact. At the level of the anterior right vasquez cula, there is a 2 mm punctate density (series 3 image 136) which is nonspecifi c. Similar punctate calcifications are also noted posterior lateral to the righ t tongue base (series 3 image 160) which likely represents a tonsillar calcificat ion. Retropharyngeal soft tissues unremarkable in appearance. Parotid glan ds demonstrate no focal abnormality or surrounding inflammatory changes. Scatte red calcific atheromatous changes. Right subsegmental atelectasis in the vi sualized lung apices. A component of underlying air trapping is not excluded. Visualized central airways are patent. No adenopathy in the visualized mediasti num. Mucosal thickening and frothy secretions noted left sphenoid sinus with opacification of the left sphenoethmoida l recess. Clinical correlation with any signs of sinusitis recommended. Paranasa l sinuses and mastoid air cells otherwise clear. No pathologic bone lesi ons. Minimal generalized parenchymal volume loss noted intracranially with in tercranial calcific atheromatous changes. Operative changes lenses of bot h globes. Procedure Note Ceasar Bansal M.D. - 04/22/2017Formatt ing of this note might be different from the original. EXAM: CT NECK SOFT TISSUE WITH IV CONTRA ST COMPARISON: None FINDINGS: A skin marker was placed along the left anterolateral neck in the vicinity to the patient's reported palpa ble abnormality. There is no evidence of mass deep to the skin marker denoting the area of palpable abnormality. The left submandib ular gland is in this region but is normal in appearance demonstrating no fo joao abnormality or surrounding inflammatory changes. No adenopathy in t he neck. Minimally heterogeneous appearance to the thyroid gland which de monstrates no definite focal abnormality. Laryngeal structures are no rmal in appearance though somewhat obscured due to motion artifact. At the level of the anterior right vasquez cula, there is a 2 mm punctate density (series 3 image 136) which is nonspecifi c. Similar punctate calcifications are also noted posterior lateral to the righ t tongue base (series 3 image 160) which likely represents a tonsillar calcificat ion. Retropharyngeal soft tissues unremarkable in appearance. Parotid glan ds demonstrate no focal abnormality or surrounding inflammatory changes. Scatte red calcific atheromatous changes. Right subsegmental atelectasis in the vi sualized lung apices. A component of underlying air trapping is not excluded. Visualized central airways are patent. No adenopathy in the visualized mediasti num. Mucosal thickening and frothy secretions noted left sphenoid sinus with opacification of the left sphenoethmoida l recess. Clinical correlation with any signs of sinusitis recommended. Paranasa l sinuses and mastoid air cells otherwise clear. No pathologic bone lesi ons. Minimal generalized parenchymal volume loss noted intracranially with in tercranial calcific atheromatous changes. Operative changes lenses of bot h globes. IMPRESSION: 1. No evidence of focal mass or adenopa thy in the soft tissues of the left neck. 2. A few small punctate calcifications are noted along the anterior right vallecula and adjacent to the lateral ri ght tongue base as detailed above, likely representing tonsillar calcificat ions and of doubtful significance. 3. Frothy secretions and mucosal thicke jefferson left sphenoid sinus as detailed above. Clinical correlation with any sig ns or symptoms of acute sinusitis recommended. 4. Scattered calcific atheromatous tellez ges. 5. Mild groundglass opacities in the vi sualized upper lungs, essentially due to subsegmental atelectasis, though given m osaic appearance, underlying air trapping is not excluded. 6. No pathologic bone lesions. [place] ZIMMERMAN CT PROCEDURES documented in this encounter Visit Diagnoses Diagnosis Mass Neck documented in this encounter Administered Medications Inactive Administered Medications - up to 3 most recent administrations Medication Order MAR Action Action Date Dose Rate Site iohexol 300 mg iodine/mL solution Given 04/22/2017 2:12 PM SYSTEMS DEVELOPMENT CONSULTANT 130 mL 130 mL (for_OMNIPAQUE) 130 mL, intravenous, Once in imaging, contrast, Starting on Thu04/22/17 at 1405, For 1 dose sodium chloride injection 10 mL Given 04/22/2017 2:58 PM SYSTEMS DEVELOPMENT CONSULTANT 10 mL 10 mL, intravenous, As needed, line care, Starting on Thu04/22/17 at 1405 sodium chloride injection 10 mL Given 04/22/2017 2:58 PM SYSTEMS DEVELOPMENT CONSULTANT 10 mL 10 mL, intravenous, As needed, line care, Starting on Thu04/22/17 at 1405 documented in this encounter Additional Health Concerns Assessment Noted Time PHQ-9 Depression Total Score: 7 06/21/2014 9:20 AM CD T documented as of this encounter
--- OUTSIDE RECORDS SUMMARY | 2021-09-05 07:59 | XMS_ITS | Encounter Summary ---
:1945 Author Organization [facility] Address [address] [place] [address] Care Team Providers Name Role Phone Unavailable Primary Care Provider Unavailable Encounter Details Date Type Department Care Team Description 07/27/2018 Hospital Encounter Department of Jenny Hayes, Olu lipidemia; Radiology in [place]ia Patterson Arthritis Rheumatoid (HCC); [place], [place] [address] Coronary Artery Disease [place]; [address] [place] [address] Diabetes Mellitus Type 2 (HC C) [place] [phone] Social History Tobacco Use Types Packs/Day [...] Priority Date/Time Associated Diagnosis Comme nts ECG Routine 07/27/2018 10:08 AM Hyperlipidem ia Results for this CDT Arthritis Rheumatoid procedu re are in the ([facility]) results section. Coronary Artery Disease [place] Diabetes Mellitus Type 2 ([facility]) documented in this encounter Results ECG 12 Lead (07/27/2018 10:08 AM CDT) P athologist Signature Ventricular Rate 83 BPM MUSE ECG/Min [place] Interval 144 ms MUSE QRSD Interval 84 ms MUSE QT Interval 362 ms MUSE QTC Interval 425 ms MUSE P [place] 62 degrees MUSE R [place] -20 degrees MUSE T Wave [place] 79 degrees MUSE Specimen Anatomical Collection Method Collection Time Receive d Time (Source) Location / / Volume Laterality 07/27/2018 10:08 07/27/2018 AM CDT 10:14 AM CDT Impressions MUSE - 07/27/2018 10:14 AM CDT Normal sinus rhythm Nonspecific T wave abnormality When compared with ECG of 03-AUG-2017 09 :18, No significant change was found Narrative This result has an attachment that is no t available. Procedure Note Jt Tuttle M.D. - 07/27/2018Form atting of this note might be different from the original. IMPRESSION: Normal sinus rhythm Nonspecific T wave abnormality When compared with ECG of 03-AUG-2017 09 :18, No significant change was found Erik Hayes M.D. ECG ORDERABLES Performing Organization Address City/State/ZIP Code Phon e Number MUSE MUSE NA documented in this encounter Visit Diagnoses Diagnosis Hyperlipidemia Arthritis Rheumatoid (HCC) Coronary Artery Disease [place] Diabetes Mellitus Type 2 (HCC) documented in this encounter Additional Health Concerns Assessment Noted Time PHQ-9 Depression Total Score: 7 06/21/2014 9:20 AM CD T documented as of this encounter
--- OUTSIDE RECORDS SUMMARY | 2021-09-05 07:59 | XMS_ITS | Encounter Summary ---
:1945 Author Organization [facility] Address [address] [place] [address] Care Team Providers Name Role Phone Unavailable Primary Care Provider Unavailable Encounter Details Date Type Department Care Team Description 01/12/2017 Abstract Department of Neurological Provider, Hist orical Surgery in [address] [phone] Social History Tobacco Use Types Packs/Day Years [...]
--- OUTSIDE RECORDS SUMMARY | 2021-09-05 07:59 | XMS_ITS | Encounter Summary ---
:1945 Author Organization [facility] Address [address] [place] [address] Care Team Providers Name Role Phone Unavailable Primary Care Provider Unavailable Encounter Details Date Type Department Care Team Description 01/07/2019 Clinical Communication Department of Josi Pittman, Ophthalmology in [address] [phone] Social History Tobacco Use Types Packs/Day Years [...]
--- OUTSIDE RECORDS SUMMARY | 2021-09-05 07:59 | XMS_ITS | Encounter Summary ---
:1945 Author Organization [facility] Address [address] [place] [address] Care Team Providers Name Role Phone Unavailable Primary Care Provider Unavailable Reason for Visit Reason Onset Date Comments orders needed 06/24/2017 Encounter Details Date Type Department Care Team Description 06/24/2017 Clinical Communication Department of whitney Escamilla needed Cardiovascular Diseases Erik Jean-Baptiste M.D. in [place] [id number] th [id number] [place] [address] [phone] (Work) [phone] Social History Tobacco Use Types Packs/Day Years [...] this encounter Miscellaneous Notes Telephone Encounter - Enma Rubio R.N. - 06/25/2017 9:14 AM CDT Hi Nicole, You can just schedule her for a cardiology appt. We will obtain the order for the EKG during her cardiology appt. Thanks - Angie Telephone Encounter - Nicole Madsen - 06/24/2017 4:11 PM CDT There is a request in Marcial appointment to see Erik Amato. But it says she needs to havean EKG first. So can this be ordered and then have someone call her to set it up. Thank You. documented in this encounter Plan of Treatment Not on filedocumented as of this encounter Visit Diagnoses Not on filedocumented in this encounter Additional Health Concerns Assessment Noted Time PHQ-9 Depression Total Score: 7 06/21/2014 9:20 AM CD T documented as of this encounter
--- OUTSIDE RECORDS SUMMARY | 2021-09-05 07:59 | XMS_ITS | Encounter Summary ---
:1945 Author Organization [facility] Address [address] [place] [address] Care Team Providers Name Role Phone Unavailable Primary Care Provider Unavailable Reason for Visit Reason Onset Date Comments Communication 12/10/2017 colonoscopy and egd needed Encounter Details Date Type Department Care Team Description 12/10/2017 Clinical Department of Magdalena Patel Communicatio n Communication Neurology in [place] (colonoscopy and egd [address] needed) [address] [place] [phone] [phone] Social History Tobacco Use Types Packs/Day Years [...] this encounter Miscellaneous Notes Telephone Encounter - Mikayla Villanueva - 12/14/2017 10:44 AM CDT (1) unable to reach patient. Send colonoscopy and dm prep instructions via mail to patient asking tocall back and ask to nurse to go through prep. Then we can schedule procedure EGD/Colonoscopy. 12/14/17la. Telephone Encounter - Magdalena Patel RSusan - 12/14/2017 10:31 AM CDT Please assist with scheduling appointments Telephone Encounter - Pradeep Noel M.D. - 12/14/2017 9:00 AM CDT Ordered! Split-dose GoLYTELY prep, because of her diabetes. Thanks. Alejandro Telephone Encounter - Magdalena Patel R.N. - 12/10/2017 2:19 PM CDT Fax from [place] in [place], Adriane Patel CNP , phone [phone], fax [phone] requesting EGD and colonoscopy. Dx listed is anemia and diarrhea unknown etiology. Per fax patient is diabetic and taking iron supplement. No blood thinners or pacemaker/defib. Family Gurinder is pharmacy preference. Please order scopes and then patient will be contacted to schedule documented in this encounter Plan of Treatment Not on filedocumented as of this encounter Visit Diagnoses Diagnosis Diarrhea - Primary Anemia documented in this encounter Additional Health Concerns Assessment Noted Time PHQ-9 Depression Total Score: 7 06/21/2014 9:20 AM CD T documented as of this encounter
--- OUTSIDE RECORDS SUMMARY | 2021-09-05 07:59 | XMS_ITS | Encounter Summary ---
:1945 Author Organization [facility] Address [address] [place] [address] Care Team Providers Name Role Phone Unavailable Primary Care Provider Unavailable Reason for Visit Reason Comments Eye Drainage Appointment Request (Routine) - Closed Specialty Diagnoses / Procedures Referred By Contact Refer red To Contact Ophthalmology Referral ID Status Reason Start Date Expiration Date Visits Requ ested Visits Authorized [id number] Closed 12/16/2018 12/16/2019 1 Encounter Details Date Type Department Care Team Description 12/17/2018 Office Visit Department of Janak Hadleyri tis Left (Primary Dx); Ophthalmology in Eric Moe M.D. Blepharitis Right [address] [phone] Social History Tobacco Use Types Packs/Day Years [...] encounter Progress Notes Janak Hadley M.D. - 12/17/2018 9:15 AM CDT Marcial Adams was seen today for Eye Drainage #1 Blepharitis Left #2 Blepharitis Right Patient has blepharitis in both eyes. The meibomian gland secretions are quite thick. I recommended lid soaks in the morning, baby shampoo lid scrubs in the evening, and artificial tears 2-3 times per day both eyes. We also discussed supplementation with fish oil but would reserve that for the future if condition is not improved. I advised she could be seen here in [address] Cruz in [facility]. I would be happy to see her back at any time per her or Dr. Cruz's discretion. documented in this encounter Plan of Treatment Not on filedocumented as of this encounter Visit Diagnoses Diagnosis Blepharitis Left - Primary Blepharitis Right documented in this encounter Additional Health Concerns Assessment Noted Time PHQ-9 Depression Total Score: 7 06/21/2014 9:20 AM CD T documented as of this encounter
--- OUTSIDE RECORDS SUMMARY | 2021-09-05 07:59 | XMS_ITS | Encounter Summary ---
:1945 Author Organization [facility] Address [address] [place] [address] Care Team Providers Name Role Phone Unavailable Primary Care Provider Unavailable Reason for Visit Reason Comments Decreased Visual Acuity Appointment Request (Routine) - Closed Specialty Diagnoses / Procedures Referred By Contact Refer red To Contact Ophthalmology Referral ID Status Reason Start Date Expiration Date Visits Requ ested Visits Authorized [id number] Closed 06/29/2019 06/28/2020 1 1 Encounter Details Date Type Department Care Team Description 07/18/2019 Office Visit Department of Nakita Hadleyphaphilip Le (Primary Dx); Ophthalmology in [facility] Janak Moe M.D. Blepharitis Right; [place], [place] [address] Other Subjective Visual Disturbances [address] [place] [phone] Social History Tobacco Use Types Packs/Day Years [...] encounter Progress Notes Janak Hadley M.D. - 07/18/2019 9:15 AM CDT Marcial Adams was seen today for Decreased Visual Acuity #1 Blepharitis Left #2 Blepharitis Right #3 Other Subjective Visual Disturbances Episodes of blurry vision lasting a few minutes upon awakening, likely related to dry eye/ocular surface disease. Otherwise no ophthalmic pathology or emboli. Can try artificial tears upon awakening to see if that helps, if anything tear meniscus appears above normal, but no epiphora. rtc prn if any worsening or persistence, will check blood pressure and blood sugar to ensure not abnormal. documented in this encounter Plan of Treatment Not on filedocumented as of this encounter Procedures Procedure Name Priority Date/Time Associated Diagnosis Comme nts OPTICAL COHERENCE Routine 07/18/2019 10:20 Other Subjective Re sults for this TOMOGRAPHY - AM CDT Visual Disturbances procedur e are in MACULA/RETINA - OU the resul ts - BOTH EYES section. documented in this encounter Results Optical Coherence Tomography (OCT) - Macula/Retina - OU - Both Eyes (07/18/2019 10:20 AM CDT) Specimen (Source) Anatomical Location Collection Method / Collectio n Time Received Time / Laterality Volume Narrative OPHTHALMOLOGY IMAGING EXAM - 07/18/19 20 10:20 AM CDT This result has an attachment that is no t available. Flat, both Janak Hadley M.D. OPHTH TOMOGRAPHY Performing Organization Address City/State/ZIP Code Phon e Number OPHTHALMOLOGY IMAGING EXAM documented in this encounter Visit Diagnoses Diagnosis Blepharitis Left - Primary Blepharitis Right Other Subjective Visual Disturbances documented in this encounter Additional Health Concerns Assessment Noted Time PHQ-9 Depression Total Score: 7 06/21/2014 9:20 AM CD T documented as of this encounter
--- OUTSIDE RECORDS SUMMARY | 2021-09-05 07:59 | XMS_ITS | Encounter Summary ---
:1945 Author Organization [facility] Address [address] [place] [address] Care Team Providers Name Role Phone Unavailable Primary Care Provider Unavailable Encounter Details Date Type Department Care Team Description 02/26/2018 Nurse Triage Department of Marizol Paul R.N. Medicine, [facility], [address] [facility] in [place], [place] [address] [place] [address] [place] [address] [phone] Social History Tobacco Use Types Packs/Day Years [...]
--- OUTSIDE RECORDS SUMMARY | 2021-09-05 07:59 | XMS_ITS | Encounter Summary ---
:1945 Author Organization [facility] Address [address] [place] [address] Care Team Providers Name Role Phone Unavailable Primary Care Provider Unavailable Encounter Details Date Type Department Care Team Description 07/18/2019 Silent Schedule Department of Janak Hadley Ophthalmology in [place] M. D. [place] [address] [place] [address] [address] [place] [phone] (Wo rk) Social History Tobacco Use Types [...] Laterality Volume Narrative OPHTHALMOLOGY IMAGING EXAM - 06/01/20 20 10:20 AM CDT This result has an attachment that is no t available. Flat, both Janak Hadley M.D. OPHTH TOMOGRAPHY Performing Organization Address City/State/ZIP Code Phon e Number OPHTHALMOLOGY IMAGING EXAM documented in this encounter Visit Diagnoses Not on filedocumented in this encounter Additional Health Concerns Assessment Noted Time PHQ-9 Depression Total Score: 7 06/21/2014 9:20 AM CD T documented as of this encounter
--- OUTSIDE RECORDS SUMMARY | 2021-09-05 07:59 | XMS_ITS | Encounter Summary ---
:1945 Author Organization [facility] Address [address] [place] [address] Care Team Providers Name Role Phone Unavailable Primary Care Provider Unavailable Encounter Details Date Type Department Care Team Description 01/12/2017 Clinical Support Department [facility]Shahana Alcala D.O. 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 - 01/12/2017 9:00 AM CST Physical Therapy Outpatient Treatment Note SUBJECTIVE Visit Count since Last G-Code: 1 Episode Visit Count: 2 Visit Diagnosis: #1 Vertigo Referring Provider: Shahana Luque* Subjective: Patient reports she has a brain MRI scheduled for 01/22. She talked about cancelling it as her has back surgery on of this week. Encouraged her to keep or at least contact her provider. Reports she feels the symptoms that she had last week are improved. She has no symptoms going up/down stairs, reports bending over is improved. Today she reports lightheadedness. Last session she reported her symptoms were not lightheadedness. She notes today that the lightheadedness is worse thanit normally is. Notices it most when she gets up in the morning, in the shower with all of her surroundings white and mid-afternoon. Patient reports she does not even drink 1 glass of water during the day. She is not thirsty, never has drank much water. Reports a few years ago her chiropractor recommended she drink more water and her lightheadedness improved. OBJECTIVE Blood Pressure: 140/63 Pain Assessment Pain Assessment: 0-10 Numeric Pain Intensity Scale Pain Score: 0 - No pain Vision Ocular Range of Motion: Addressed, no concerns noted Oculomotor: (WNL, no symptoms) Oculomotor Testing Saccades: Addressed, no concerns noted VOR Cancellation: Unable to maintain visual fixation on target (slowed speed, no symptoms noted) Impressions Vestibular Impression: Impaired VOR. Treatment Habituation Exercises: VOR -vertical and horiztonal. Starting 3x/day for 30 seconds and working up to 1 minute. Treatment today consisted of: Neuromuscular Re-education: Reviewed oculomotor exam. Saccades were WNL but was slowed with VOR andhad decreased focus. Added VOR to her home program. Educated patient on VOR and incidence of it after episodes of vertigo. Spent time with patient discussing balance impairments and systems that influence our balance system. She continues to feel off balance. But this is most often when she is lightheaded. Encouraged patient to drink more water. To start with 1 additional glass of H2o and increase as able. Discussed other options of flavoring water. She will look into this. Home Exercise Program/Education: VOR Assessment Clinical Impression Her symptoms have improved. It appears the positional vertigo is resolved. Anticipate that by adding VOR and increasing fluid intake her symptoms will resolve. Her has surgery this week. If she continues to feel off balance will plan to see patient in 1-2 weeks time after her MRI results and further assess balance with DGI or formal dynamic/static balance assessment. Plan Patient will call in 1-2 weeks time. If we have not heard from patient in 1 month time will plan to discharge. Time Spent with Patient Neuromuscular Re-Education (min): 29 min Total Timed Units (min): 29 min Total Treatment Time (min): 29 min Functional G-code Worksheet CONTROL/ANTI AIR WARFARE OFFICER documented in this encounter Plan of Treatment Not on filedocumented as of this encounter Visit Diagnoses Diagnosis Vertigo documented in this encounter Additional Health Concerns Assessment Noted Time PHQ-9 Depression Total Score: 7 06/21/2014 9:20 AM CD T documented as of this encounter
--- OUTSIDE RECORDS SUMMARY | 2021-09-05 07:59 | XMS_ITS | Encounter Summary ---
:1945 Author Organization [facility] Address [address] [place] [address] Care Team Providers Name Role Phone Unavailable Primary Care Provider Unavailable Encounter Details Date Type Department Care Team Description 01/07/2019 Clinical Communication Department of Josi Pittman, Ophthalmology in [address] [phone] Social History Tobacco Use Types Packs/Day Years [...] this encounter Miscellaneous Notes Telephone Encounter - Josi Pittman, RJairoN. - 01/07/2019 9:50 AM CST Specialty Surgical Services Triage Call Reason for call/visit Continued blurry vision Call Note: Assessment Patient was seen in ophthalmology on 12/17/18 and was noted to have bilateral blepharitis. The progress note states that patient's meibomian gland secretions were quite thick. Patient was directed to do morning lid soaks, baby shampoo lid scrubs in the evening, and to use artificial tears 2-3 times per day bilaterally. Also, patient may consider supplementing with fish oil in the future if her conditions do not improve. Patient calls with concern because she continues to have blurry vision and its hard to read at times. She feels as though her eye lids continue to be kind of puffy. Patient endorses to be soaking her eyes in the mornings and performing lid scrubs in the evening. She states that she stopped using the lubricating tears a few days ago because her eyes quit watering or tearing. Intervention This loan underwriter educated patient on dry eye syndrome, especially during the winter months when we have alot of dry air in our homes and cars. Patient may need to faithfully use lubricating tears during the winter months for this reason. This loan underwriter directed patient to restart the artificial tears, safeto use 4 times daily. To continue with the lid soaks and lid scrubs. This loan underwriter explained that itcan take at least a week to notice less blurry vision after faithfully using the artificial tears, faithfully and daily. Also, this loan underwriter suggested to add humidification to patient's home. Has patient called or presented with the same symptom previously yes - 12/17/18 Is patient experiencing other symptoms: no The following references were used: nursing clinical judgement and other telephone triage [facility] pages [phone] Education provided: patient/caller able to teach back Disposition/Recommendation: self-care as stated above appropriate at this time, patient encouraged to call back with questions Caller agreeable to plan of care: yes The following individuals participated in today???s interaction: patient Maintenance Truck Driver used: no Additional concerns addressed: none DESIGNER documented in this encounter Plan of Treatment Not on filedocumented as of this encounter Visit Diagnoses Not on filedocumented in this encounter Additional Health Concerns Assessment Noted Time PHQ-9 Depression Total Score: 7 06/21/2014 9:20 AM CD T documented as of this encounter
--- OUTSIDE RECORDS SUMMARY | 2021-09-05 07:59 | XMS_ITS | Encounter Summary ---
:1945 Author Organization [facility] Address [address] [place] [address] Care Team Providers Name Role Phone Unavailable Primary Care Provider Unavailable Encounter Details Date Type Department Care Team Description 06/29/2019 Clinical Communication Department of Josi Pittman, Ophthalmology in [address] [phone] Social History Tobacco Use Types Packs/Day Years [...] Miscellaneous Notes Telephone Encounter - Josi Pittman, R.N. - 06/29/2019 2:16 PM CDT Specialty Surgical Services Triage Call Reason for call/visit Bilateral blurry vision Call Note: Assessment Patient reports the onset of a different kind of blurry vision about 1 - 1 1/2 months ago. She says she primarily experiences it when she wakes up from a nap or when she first wakes up in the morning. She says that her eyes are really blurry and she can't read a digital clock. Patient says that it is not a focus issue. And, after a couple of minutes the blurry vision improves. Patient was seen in ophthalmology on 02/24/19 regarding bilateral blepharitis. She was noted to have great improvement of her symptoms, patient was advised to stop therapy for blepharitis and resume her regimen of artificial tears. Patient endorse to use the tears intermittently, sometimes twice per day, sometimes not at all. Patient denies her eyes to water, there is no crusting, no itching of the eyelids, no foreign body sensation, no light sensitivity. Patient has some occasional itching of the eye ball but her eyes are not red. She does report her eyes to fatigue with extended sessions of sewing. Patient i s status post cataract. Patient is a diabetic. She controls her diabetes with both oral and injectable medication. She is followed by an international exchange coordinator. Her last a1c was 8.5 on 06/01/19. Patient is concerned for diabetic retinopathy. She is not positive for floaters, impaired color vision, dark or empty areas of her vision, or vision loss. Intervention Patient is directed to increase her use of artificial tears to 4-6 times per day, to be consistent with this. Patient is placed on the ophthalmology schedule and agrees to cancel her appointment should her symptoms improve. Has patient called or presented with the same symptom previously yes - 02/24/19 ophthalmology note Is patient experiencing other symptoms: no The following references were used: nursing clinical judgement and [email or web address] Education provided: patient/caller able to teach back Disposition/Recommendation: self-care as stated above appropriate at this time, patient encouraged to call back with questions Caller agreeable to plan of care: yes The following individuals participated in today???s interaction: patient Primary Special Educator used: no Additional concerns addressed: none documented in this encounter Plan of Treatment Not on filedocumented as of this encounter Visit Diagnoses Not on filedocumented in this encounter Additional Health Concerns Assessment Noted Time PHQ-9 Depression Total Score: 7 06/21/2014 9:20 AM CD T documented as of this encounter
--- OUTSIDE RECORDS SUMMARY | 2021-09-05 07:59 | XMS_ITS | Encounter Summary ---
:1945 Author Organization [facility] Address [address] [place] [address] Care Team Providers Name Role Phone Unavailable Primary Care Provider Unavailable Reason for Visit Reason Comments Hyperglycemia blood sugar at 2115 536 has taken an extra glypizide at 2105. is not insulin dependent but had a dose of IV steroids around 1300 for arthritis flare. Encounter Details Date Type Department Care Team Description 05/25/2017 Emergency [facility] Juan Urias Hyperglycemia (Primary Department R, M.D. Dx) [address] [place] [id number] Social History Tobacco Use Types Packs/Day Years [...] Sign Reading Time Taken Comments Blood Pressure 169/86 05/25/2017 9:42 PM CDT Pulse 91 05/25/2017 9:42 PM CDT Temperature 36.7 ??C (98.1 ??F) 05/25/2017 9:42 PM CDT Respiratory Rate 16 05/25/2017 9:42 PM CDT Oxygen Saturation 98% 05/25/2017 9:42 PM CDT Inhaled Oxygen Concentration - - Weight 81.1 kg (178 lb 12.7 oz) 05/25/2017 9:45 PM CDT Height - - Body Mass Index 32.49 09/01/2016 11:04 AM CDT documented in this encounter Discharge Instructions AttachmentsThe following attachments cannot be sent through Care Everywhere. Hyperglycemia (Syriac)documented in this encounter Medications at Time of [...] as needed. documented as of this encounter ED Notes Juan Urias M.D. - 05/25/2017 9:36 PM CDT SUBJECTIVE CHIEF COMPLAINT/REASON FOR VISIT Hyperglycemia (blood sugar at 2115 536 has taken an extra glypizide at 2105. is not insulin dependent but had a dose of IV steroids around 1300 for arthritis flare. ) HISTORY OF PRESENT ILLNESS Marcial Adams is a 71 y.o. female with significant PMHx type 2 diabetes, not on insulin, as well as arthritis who presents via private vehicle for evaluation of hyperglycemia. Over the past 4-5 days she has had persistent glucose is greater than 200. This afternoon she received a steroid injection for a arthritis flare and she checked her sugar this evening as she has noted that the steroids tend to increase her blood sugar. Her blood sugar was greater than 500. She took an extra dose of her glipizide just past 9:00 p.m. and then comes to the emergency department for evaluation as her glucose had not improved after 30-40 minutes. She denies any dizziness, weakness, nausea vomiting, abdom inal pain. She has had no cough, shortness breath, or urinary symptoms. She has never been in diabetic ketoacidosis before. She has had no fevers or chills. No recent changes to medications otherwise. Denies any exacerbating or alleviating factors and denies any other concerns. REVIEW OF SYSTEMS Review of systems Pertinent positives and negatives per the HPI. All other systems reviewed and are negative. PAST MEDICAL HISTORY Reviewed in the EMR. Pertinent past medical history for this visit per the HPI. SOCIAL HISTORY No documented history of illicit drug use. OBJECTIVE Initial Vitals [05/25/17 2142] Temperature Pulse Rate Heart Rate Resp Rate Blood Pressure SpO2 36.7 ??C 91 -- 16 (!) 169/86 98 % Pain Score 1 PHYSICAL EXAMINATION Physical examination CONSTITUTIONAL: --- Vital signs reviewed. --- Non-toxic. EYES: --- Conjunctivae and lids normal. --- Pupils equal and round, normal in size. ENT AND MOUTH: --- Ears, nose, mouth normal in appearance. --- Moist mucous membranes. NECK: --- Symmetric, supple. --- Midline trachea. CARDIOVASCULAR: --- Non-tachycardic. --- Extremities are warm and well perfused. RESPIRATORY: --- No increased respiratory effort. --- Speaking in full sentences. ABDOMEN: --- Non-distended. MUSCULOSKELETAL: --- Head is atraumatic. --- No obvious injuries, wounds, deformities, of the chest, abdomen, upper and lower extremities. SKIN: --- Skin is warm and dry. Without areas of warmth or erythema NEUROLOGIC: --- Speech normal. Alert and oriented. --- No focal motor or sensory deficits. ASSESSMENT/PLAN Impression and Plan Marcial Adams is a 71 y.o. female with significant PMHx type 2 diabetes, not on insulin, as well as arthritis who presents via private vehicle for evaluation of hyperglycemia. She is nontoxic-appearing. Exam is benign with no concerning symptoms for a concomitant infectious process. CBC and electrolytes are notable for a normal white blood cell count. Sodium is 130 with a glucose of 499. Corrected sodium is 140. Bicarbonate is slightly low at 19. A venous blood gas is reassuring with a pH of 7.388 excluding diabetic ketoacidosis. As she took an extra dose of glipizide, as well as the fact that she is insulin naive, we have held off giving her any subcu insulin and rechecked her blood sugar just passed an hour after arrival here. Her glucose is already improved to 399 without any interventions here in the emergency department. Given this downward trend, we will hold on administering any subcu insulin or IV fluids. She is medically cleared and I think safe for discharge home but does understand that she needs to follow up in the next 1-2 days at most with her primary care provider to discuss her current medication regimen for her diabetes as her sugars have been persistently elevated and need to be under better control. In the interim if she develops any symptoms including but not limited to weakness, lightheadedness, nausea vomiting, abdominal pain, or if she has persistently elevated blood glucose is greater than 500, she is instructed to return here. She is comfortable with this plan and all questions have been answered.. Final Diagnoses: as of May 25 2321 Hyperglycemia Juan Urias M.D. 05/25/172320 Juan Urias M.D. 05/25/172321 documented in this encounter Plan of Treatment Not on filedocumented as of this encounter Procedures Procedure Name Priority Date/Time Associated Comments Diagnosis GLUCOSE POCT, B Routine 05/25/2017 10:50 Results for this PM CDT procedure are i n the results section. VBG (VENOUS BLOOD Routine 05/25/2017 10:42 Result s for this GAS), POCT, B PM CDT procedure are in the results section. URINALYSIS WITH STAT 05/25/2017 10:24 Results for this MICROSCOPIC IF PM CDT procedure are in INDICATED, U the results section. MICROSCOPIC MANUAL STAT 05/25/2017 10:24 Resul ts for this PM CDT procedure are i n the results section. GLUCOSE POCT, B Routine 05/25/2017 10:11 Results for this PM CDT procedure are i n the results section. CBC WITH DIFFERENTIAL, STAT 05/25/2017 9:52 R esults for this B PM CDT procedure are i n the results section. COMPREHENSIVE STAT 05/25/2017 9:52 Results fo r this METABOLIC PANEL, S/P PM CDT procedu re are in the results section. BLOOD GAS, POCT, B STAT 05/25/2017 1:38 Resul ts for this PM CDT procedure are i n the results section. documented in this encounter Results (ABNORMAL) Glucose, POCT (05/25/2017 10:50 PM CDT) P athologist Signature Glucose, POCT, 399 (H) 70 - 140 05/25/2017 [facility] B mg/dL 10:50 PM CDT [facility] Specimen Anatomical Collection Method Collection Time Receive d Time (Source) Location / / Volume Laterality Blood 05/25/2017 10:50 05/25/2017 PM CDT 10:56 PM CDT Generic Rals LAB POCT ORDERABLES-MANUAL Performing Organization Address City/State/ZIP Code Phon e Number [facility]- [id number] [place] [id number] [place] [address] LAB (ABNORMAL) VBG (Venous Blood Gas), POCT (05/25/2017 10:42 PM CDT) [facility] Time Signature pH, Venous, 7.39 7.32 - 7.43 05/25/2017 [facility] POCT, B 10:42 PM CDT [facility] pCO2, Venous, 32 (L) 41 - 51 mm Hg 05/25/2017 [facility] POCT, B 10:42 PM CDT [facility] pO2, Venous, 55 Not applicable 05/25/2017 [facility] POCT, B mm Hg 10:42 PM CDT [facility] HCO3, Venous, 20 Not applicable 05/25/2017 [facility] POCT, B mmol/L 10:42 PM CDT [facility] Base Excess, -5 Not applicable 05/25/2017 [facility] Venous, POCT, mmol/L 10:42 PM CDT [facility] O2 Saturation, 88 Not applicable 05/25/2017 [facility] Venous, POCT, % 10:42 PM CDT [facility] Sample Type, RAJI 05/25/2017 [facility] Blood Gas, 10:42 PM CDT [facility] FIO2, POCT 0.00 [id number] 05/25/2017 [facility] 10:42 PM CDT [facility] Comment: ----ADDITIONAL INFORMATION---- Performed at the Point of Care Specimen Anatomical Collection Method Collection Time Receive d Time (Source) Location / / Volume Laterality Blood 05/25/2017 10:42 05/25/2017 PM CDT 10:53 PM CDT Generic Rals LAB POCT ORDERABLES - DEVICE Performing Organization Address [facility] Phon e Number [address] [address] [place] [facility] (ABNORMAL) Microscopic Manual (05/25/2017 10:24 PM CDT) P athologist Signature White Blood 4-10 /hpf 05/25/2017 [facility] Cells 10:49 PM CDT [facility] Comment: ----REFERENCE VALUE---- Males: 0-3 Females: 0-10 Unknown: 0-10 Red Blood Cells Occ-2 0 - 2 /hpf 05/25/2017 10:49 PM CDT [facility] Hyaline Casts Occasional /lpf 05/25/2017 10:49 PM CDT [facility] Squamous Cells Occ-3 /hpf 05/25/2017 10:49 PM CDT [facility] Bacteria Present (A) None Seen 05/25/2017 10:49 PM CDT [facility] Specimen Anatomical Collection Method Collection Time Receive d Time (Source) Location / / Volume Laterality Urine 05/25/2017 10:24 05/25/2017 PM CDT 10:29 PM CDT Juan Urias M.D. LAB URINE ORDERABLES Performing Organization Address [facility] Code Phon e Number [address] [place] [address] [place] [facility] (ABNORMAL) Urinalysis with Microscopic if Indicated (05/25/2017 10:24 PM CDT) P athologist Signature Source Midstream 05/25/2017 [facility] 10:29 PM [facility] Clarity Clear Clear 05/25/2017 [facility] 10:29 PM [facility] Color Yellow 05/25/2017 [facility] 10:29 PM [facility] Comment: ----REFERENCE VALUE---- Colorless Yellow Zoey Blood Trace (A) Negative 05/25/2017 10:29 PM [facility] Nitrite Negative Negative 05/25/2017 10:29 PM [facility] Leukocyte Esterase Trace (A) Negative 05/25/2017 10:29 PM T [facility] Protein Negative mg/dL 05/25/2017 10:29 PM [facility] Comment: ----REFERENCE VALUE---- Negative Trace Glucose >=1000 (A) Negative mg/dL 05/25/2017 10:29 PM [facility] Ketones, QL(U) Trace (A) Negative mg/dL 05/25/2017 10:29 PM [facility] Bilirubin Negative Negative 05/25/2017 10:29 PM [facility] pH 5.0 5.0 - 8.0 05/25/2017 10:29 PM [facility] LAB Specific [place] 1.010 1.001 - 1.035 05/25/2017 10:29 PM [facility] Urobilinogen 0.2 0.2 - 1.0 mg/dL 05/25/2017 10:29 PM [facility] Specimen Anatomical Collection Method Collection Time Receive d Time (Source) Location / / Volume Laterality Urine (Urine, 05/25/2017 10:24 05/25/2017 Clean Catch) PM CDT 10:24 PM CDT Juan Urias M.D. LAB URINE ORDERABLES Performing Organization Address [facility] Phon e Number [facility]- [address] [place] [id number] [place] [facility] (ABNORMAL) Glucose, POCT (05/25/2017 10:11 PM CDT) athologist Signature Glucose, POCT, 441 (H) 70 - 140 05/25/2017 [facility] B mg/dL 10:11 PM [facility] Specimen Anatomical Collection Method Collection Time Receive d Time (Source) Location / / Volume Laterality Blood 05/25/2017 10:11 05/25/2017 PM CDT 10:19 PM CDT Generic Rals LAB POCT ORDERABLES-MANUAL Performing Organization Address [facility] Code Phon e Number [address] [address] [place] [facility] (ABNORMAL) CMP (Comprehensive Metabolic Panel) (05/25/2017 9:52 PM CDT) athologist Signature Potassium, P 4.5 3.6 - 5.2 05/25/2017 [facility] mmol/L 10:21 PM [facility] Sodium, P 130 (L) 135 - 145 05/25/2017 [facility] mmol/L 10:21 PM [facility] Chloride, P 92 (L) 98 - 107 05/25/2017 [facility] mmol/L 10:21 PM [facility] Bicarbonate, P 19 (L) 22 - 29 05/25/2017 [facility] mmol/L 10:21 PM [facility] Anion Gap, P 19 (H) 7 - 15 05/25/2017 [facility] 10:21 PM [facility] BUN (Blood 38 (H) 6 - 21 05/25/2017 [facility] Urea mg/dL 10:21 PM [facility] Nitrogen), [facility] Creatinine, P 1.05 (H) 0.59 - 05/25/2017 [facility] 1.04 mg/dL 10:21 PM [facility] eGFR-Black/Afr 62 >=60 05/25/2017 [facility] ican [place] mL/min/BSA 10:21 [facility] Comment: ----ADDITIONAL INFORMATION---- Estimated GFR calculated using the 2009 CKD_EPI creatinine equation. eGFR Non-Black/ 54 (L) >=60 mL/min/BSA 05/25/2017 10:21 [facility] [place] [facility] Comment: ----ADDITIONAL INFORMATION---- Estimated GFR calculated using the 2009 CKD_EPI creatinine equation. Calcium, Total, P 9.0 8.9 - 10.1 05/25/2017 10:21 [facility] mg/dL [facility] Glucose, P 499 (CH) 70 - 140 mg/dL 05/25/2017 10:21 [facility] Protein, Total, P 7.2 6.3 - 7.9 g/dL 05/25/2017 10:21 [facility] Albumin, P 3.7 3.5 - 5.0 g/dL 05/25/2017 10:21 [facility] Aspartate 21 8 - 43 U/L 05/25/2017 10:21 [facility] Aminotransferase (AST), P [facility] Alkaline Phosphatase, P 74 55 - 142 U/L 05/25/2017 10 :21 [facility] Alanine Aminotransferase 20 7 - 45 U/L 05/25/2017 10: 21 [facility] (ALT), P [facility] Bilirubin, Total, P <0.2 <=1.2 mg/dL 05/25/2017 10:21 M [facility] Specimen Anatomical Collection Method Collection Time Receive d Time (Source) Location / / Volume Laterality Blood (Blood, 05/25/2017 9:52 05/25/2017 Venous) PM CDT 9:52 PM CDT Juan Urias M.D. LAB BLOOD ADD-ON Performing Organization Address City/State/ZIP Code Phon e Number [facility]- [id number] [address] [place] LAB (ABNORMAL) CBC with Differential (05/25/2017 9:52 PM CDT) [facility] gist Method Time Signature Hemoglobin 11.0 (L) 11.6 - 05/25/2017 [facility] 15.0 g/dL 10:07 PM CDT [facility] [employer] [facility] Hematocrit 33.3 (L) 35.5 - 05/25/2017 [facility] 44.9 % 10:07 PM CDT [facility] [employer] [facility] Erythrocytes 3.55 (L) 3.92 - 05/25/2017 [facility] 5.13 10:07 PM CDT [facility] x10(12)/[facility]- [employer] [facility] MCV 93.8 78.2 - 05/25/2017 [facility] 97.9 fL 10:07 PM CDT [facility] [employer] [facility] RBC Distrib Width 13.0 12.2 - 05/25/2017 [facility] 16.1 % 10:07 PM CDT [facility] [employer] [facility] Platelet Count 235 157 - 371 05/25/2017 [facility] x10(9)/L 10:07 PM CDT [facility] [employer] [facility] Leukocytes 8.9 3.4 - 9.6 05/25/2017 [facility] x10(9)/L 10:07 PM CDT [facility] [employer] [facility] Neutrophils 8.56 (H) 1.56 - 05/25/2017 [facility] 6.45 10:07 PM CDT [facility] x10(9)/[facility]- [employer] [facility] Lymphocytes 0.22 (L) 0.95 - 05/25/2017 [facility] 3.07 10:07 PM CDT [facility] x10(9)/[facility] [employer] [facility] Monocytes 0.09 (L) 0.26 - 05/25/2017 [facility] 0.81 10:07 PM CDT [facility] x10(9)/[facility] [employer] [facility] Eosinophils 0.01 (L) 0.03 - 05/25/2017 [facility] 0.48 10:07 PM CDT [facility] x10(9)/[facility] [employer] [facility] Basophils 0.01 0.01 - 05/25/2017 [facility] 0.08 10:07 PM CDT [facility] x10(9)/L SYSTEM- [employer] LAB Specimen Anatomical Collection Method Collection Time Receive d Time (Source) Location / / Volume Laterality Blood (Blood, 05/25/2017 9:52 05/25/2017 Venous) PM CDT 9:52 PM CDT Juan Urias M.D. LAB BLOOD ADD-ON Performing Organization Address City/[facility]/ZIP Code Phon e Number [address] [address] [place] [facility] Blood Gas, POCT (05/25/2017 1:38 PM CDT) Analysis Performed At [facility] logist Time Signature Blood Gas, Collected 05/27/2017 [facility] POCT, B 1:38 PM CDT [facility] Specimen Anatomical Collection Method Collection Time Receive d Time (Source) Location / / Volume Laterality Blood (Other, 05/25/2017 1:38 05/27/2017 Specify in PM CDT 1:38 PM CDT Comments) Juan Urias M.D. LAB POCT ORDERABLES - DEVICE Performing Organization Address City/[facility]/ZIP Code Phon e Number [address] [address] [place] [facility] documented in this encounter Visit Diagnoses Diagnosis Hyperglycemia - Primary documented in this encounter Additional Health Concerns Assessment Noted Time PHQ-9 Depression Total Score: 7 06/21/2014 9:20 AM CD T documented as of this encounter
--- OUTSIDE RECORDS SUMMARY | 2021-09-05 07:59 | XMS_ITS | Encounter Summary ---
:1945 Author Organization [facility] Address [address] [place] [address] Care Team Providers Name Role Phone Unavailable Primary Care Provider Unavailable Reason for Visit Physical Therapy (Routine) - Closed Specialty Diagnoses / Procedures Referred By Contact Refer red To Contact Diagnoses Vertigo Shahana Luque [facility] Procedures PT Evaluate and treat Hernan Lance [address] [address] Referral ID Status Reason Start Date Expiration Date Visits Requ ested Visits Authorized [id number] Closed 01/06/2017 07/05/2017 12 12 Encounter Details Date Type Department Care Team Description 01/07/2017 Comprehensive Visit Department of Shahana Meeks D.O. [address] [address] [facility] Carley Yost, P.T. [address] [place] [phone] [id number] Social History Tobacco Use Types Packs/Day Years [...] documented as of this encounter Consult Notes Carley Yost P.T. - 01/07/2017 9:00 AM CST Physical Therapy Evaluation and Treatment Outpatient SUBJECTIVE Visit Count since Last G-Code: 1 Episode Visit Count: 1 Visit Diagnosis: #1 Vertigo Referring Provider: Shahana Luque* Reason for Referral: Vertigo/Vestibular Therapy History of Present Illness: Patient reports to physical therapy today reporting that 3-4 weeks ago old over in bed and had increased onset of spinning vertigo sensation. Since then she reports she has not had that severe symptoms but reports that when she bends over or when she looks up or turns her head too quickly she doesn't feel right. Is difficult for her to describe her symptoms. She only had the 1 episode of spinning 3-4 weeks ago. She does report to disequalibrium or being off balance. She says it is hard to determine whether it is true lightheadedness or dizziness. She does not feel right feels like she might be falling. Has had no falls. She is denying any visual blurring, double vision, nausea or vomiting. Patient denies a history of tinnitus, Meniere's disease, sudden hearing loss, or pressure fullnessin her ears. She does report about a few weeks ago she did go in and have fluid behind her left earwas totally plug today did clean out. Unable to determine whether this was before or after her spinning episode. Patient denies a history of migraines, motion sickness, or motor vehicle accident or trauma. She reports years ago she did bump her head and does have some drooping of the left eye in her chiropractor was working on that. Reports she has seen a chiropractor since the symptoms have started happened her neck has been stiff. She has had a history of lightheadedness that she has seen cardiology for. She had appointment withneurology earlier this week and they referred her to PT for vertigo. She describes these symptoms as different. It's not the same as standing up and feeling lightheaded. Patient/Caregiver Goals:To feel normal, eliminate vertigo Onset Date: 12/10/16 (about 3-4 weeks ago Occupational Profile: Prior Level of Function: Patient was independent in driving and her daily activities. Ambulation without assistive device Current Level of Function: She is nervous about walking. Decreased her movements to avoid exacerbating symptoms OBJECTIVE Pain Assessment Pain Assessment: 0-10 Numeric Pain Intensity Scale Pain Score: 0 - No pain Fall in the last 12 months: No Are you fearful of falling?: Yes Reports due to her vertigo she doesn't feel right and feels off balance. Observation/Inspection: Ambulates with some guarding. Decreased cervical rotation with movement Ambulation/Balance: No LOB with gait. No formal balance assessment Range of Motion/Strength: Cervical ROM within normal limits. Some discomfort/pain with left rotation. Vestibular Assessment: Patient had no symptom reproduction with smooth pursuit, saccades or VOR testing. Mccammon-Calderón pike: Symptomatic with immediate latency and duration of 10 seconds in left posterior BPPV position. No nystagmus noted. Treatment today consisted of: Treated patient with Canalith repositioning maneuver x 2 for left posterior canal BPPV. She was onlysymptomatic in the initial testing position. Home Exercise Program/Education: Issued handout on BPPV Assessment Clinical Impression Patient presents with c/o vertigo and vestibular symptoms. Patient's symptoms this time present consistent with benign positional paroxysmal vertigo. No nystagmus was noted with Our testing today. However given patient's subjective description and her initial onset the symptoms do seem to be consistent. It is possible the patient does have other factors contributing as she had baseline lightheadedness prior to the onset of this vertigo. Will continue to monitor Rehab Potential: Good Comorbidities: 1. Coronary artery disease, status post stenting 2014 2. DM, 3. Hypertension Personal Factors: Age Clinical Presentation: Stable Examination elements: 1-2 Clinical Decision Making: Low: no complicating factors, 1-2 eval elements, stable clinical presentation The severity of the patient's functional limitations will be re-assessed within the next 5 visits. Plan Plan to see patient for a total of 5 Physical therapy visits over the next 3 weeks. Patient to call if she needs to be seen on Thursday. Otherwise we will plan to follow up with patient on Thursday.Discussed with patient that her goal is that she feels at least 50% better tomorrow and that symptoms will continue to improve. She can call with questions. Our plan will be to include canalith repositioning maneuver and neuromuscular re-education. If patient's symptoms persist we may perform further balance and vestibular testing. Start Plan of Care: 01/07/17 The patient was educated regarding evaluative findings, diagnosis, prognosis, potential risks and benefits of rehabilitation interventions. A collaborative effort was used to establish goals and plan of care. The patient was informed of the right to make decisions regarding their care, including refusal of examination or treatment or selection of therapy services from another provider if desired. Thetreatment plan may be progressed or modified based upon the patient's response to treatment. Time Spent with Patient PT Evaluation (min): 40 min Total Treatment Time (min): 40 min Functional G-code Worksheet Functional Assessment Tool Used: Difficulty with rolling over, stairs, quick head movements, bending Functional Limitation: Changing and maintaining body position Changing and Maintaining Body Position Current Status (G8981): At least 20 percent but less than 40 percent impaired, limited or restricted Changing and Maintaining Body Position Goal Status (G8982): At least 1 percent but less than 20 percent impaired, limited or restricted Physician Signature: Date Print Name: [employer]AR[employer] HELPER documented in this encounter Plan of Treatment Not on filedocumented as of this encounter Visit Diagnoses Diagnosis Vertigo documented in this encounter Additional Health Concerns Assessment Noted Time PHQ-9 Depression Total Score: 7 06/21/2014 9:20 AM CD T documented as of this encounter
--- OUTSIDE RECORDS SUMMARY | 2021-09-05 07:59 | XMS_ITS | Encounter Summary ---
:1945 Author Organization [facility] Address [address] [place] [address] Care Team Providers Name Role Phone Unavailable Primary Care Provider Unavailable Reason for Referral Outpatient (Routine) - Closed Specialty Diagnoses / Procedures Referred By Contact Refer red To Contact Cardiovascular Disease MARIA DEL ROSARIO Escamilla [facility] Erik Jean-Baptiste M.D. [address] [place] [id number] Referral ID Status Reason Start Date Expiration Date Visits Requ ested Visits Authorized [id number] Closed 08/03/2017 08/03/2018 1 1 Reason for Visit Reason Comments Follow-up Yearly follow-up. No chest pain, no increase in SOB. Continues to have some activity at times. No edema Outpatient (Routine) - Closed Specialty Diagnoses / Procedures Referred By Contact Refer red To Contact Diagnoses Hyperlipidemia Erik Escamilla M.D. [address] [place] [id number] Referral ID Status Reason Start Date Expiration Date Visits Requ ested Visits Authorized [id number] Closed 11/28/2016 05/27/2017 1 1 Encounter Details Date Type Department Care Team Description 08/03/2017 Office Visit Department of Jenny Hayes, Coronary Ar wilbert Disease Ewiiaapaayp Vessel (Primary Dx); Cardiovascular Diseases Erik Jean-Baptiste M.D. Hyperlipidemia; in [place], [address] [place] [address] Arthritis Rheumatoid (HCC); [place], [place] Diabetes Mellitus Type 2 (HC C); [address] [place] [address] [address] [address] Nightmare Disorder [place], [place] [phone] (Work) [phone] Social History Tobacco Use Types Packs/Day Years [...] Reading Time Taken Comments Blood Pressure 128/72 08/03/2017 9:22 AM CDT Pulse 84 08/03/2017 9:22 AM CDT regular Temperature - - Respiratory Rate - - Oxygen Saturation 98% 08/03/2017 9:22 AM CDT Inhaled Oxygen Concentration - - Weight 79.5 kg (175 lb 4.3 oz) 08/03/2017 9:22 AM CDT Height 158 cm (5' 2.21) 08/03/2017 9:22 AM CDT Body Mass Index 31.85 08/03/2017 9:22 AM CDT documented in this encounter Patient Instructions Patient InstructionsErik Amato M.D. - 08/03/2017 9:30 AM CDT Great to see today! 1. Please discontinue metoprolol, as it could be responsible for the nightmares as a side effect. Monitor changes in the next 2 weeks 2. If the unpleasant dreams continue to be present after 2 weeks, it would be advisable to arrange for a formal sleep study 3. Please restart Lipitor 40 mg daily. Suresh Patel can certainly help us with send in the prescription since it is a long-term medication. 4. Otherwise no changes in her cardiac medications, continue to be active, I am very glad that we are now treating the rheumatoid arthritis. I have ordered a visit for 12 months with an EKG, let us know if we need to help you with anything prior to that. Peace be with you and your family, Dr Murray documented in this encounter Consult Notes Erik Amato M.D. - 08/03/2017 9:30 AM CDT [facility] Reason for the visit: Follow-up on chronic stable coronary artery disease, medication review, new diagnosis of rheumatoid arthritis History of Present Illness: Had the pleasure meeting with Mrs Adams, a delightful 72-year-old community dwelling, independent senior, well known to the Cardiology practice here at [place] mainly due to a history of established coronary artery disease that presented in January of 2015 with atypical shoulder discomfort as well as shortness of breath with physical activity, coronary angiogram at that point revealed a 70% obstruction in her proximal left anterior descending artery which was treated with a stent with complete resolution of symptoms. We followed most recently in June of 2016, at this point today she continues to have the same functional capacity, she denies any anginal or congestive symptoms. No syncope presyncope or palpitations. It is interesting that at the time of that visit, [facility]. She had an elevated CRP and ESR, of unknown significance at that time, but now she has a formal diagnosis of rheumatoid arthritis, and is being appropriately treated. She indicates that her treatment has impacted her quality of life and ability to do physical activity in a great way. I am glad to hear. On a review of systems, the only major issue that the patient was concerned about was the presence of intermittent nightmares, family members indicate that she moves quite a bit during sleep, and she is sometimes would wake up with fear related to the nightmares. Because of this, her atorvastatin hasbeen discontinued. However her symptoms have not improved. In the past she had apparently a screening overnight oximetry that was within normal limits but thiswas a while ago. Past Medical History: as summarized in the HPI ROS: 10 point-review of systems performed and negative except as stated in HPI Vitals and physical examination: Blood Pressure: (128)/(72) 128/72 SpO2: [98 %] 98 % Pulse Rate: [84] 84 HEENT: Examined and unremarkable Neck: no JVD, preserved carotid pulses, no bruits Cardiovascular: regular rhythm, normal S1, normal S2, no clinically significant murmurs Pulmonary: Clear lungs, no rales, no wheezing, no rhonchi Extremities: No edema in lower extremities Neurologic: Awake, alert and oriented, interactive Lab data and workup: I reviewed her 12 lead EKG which shows normal sinus rhythm, the computer reading indicates the presence of a nonspecific T-wave abnormality, but this appears to be negligible. Impression/Report and Plan: #1 Chronic stable coronary artery disease status post drug-eluting stent to the LAD in 2015, Welsh Class 1 # 2 Type 2 diabetes # 3 Hyperlipidemia #4 Rheumatoid arthritis on disease modifying therapy #5 Nightmares We appreciate the opportunity to follow-up today. From a cardiovascular perspective, things are going well in terms of secondary prevention with no anginal or congestive symptoms suggestive of either progression of coronary artery disease or congestive heart failure. In addition, the patient tells me that compared to 2015 her exertional capacity has improved, and particularly now that her rheumatoid arthritis is being treated. I hope that they continue to taper down her steroids to the minimum required, hopefully none to simplify management of her chronic medical conditions. Nevertheless, I expressed to her my happiness about having her rheumatoid arthritis appropriately treated, since we have increasingly recognized chronic inflammatory connective tissue disorders as a major cardiovascular risk factor for ongoing events. In that sense, in addition to her previously established secondary risk factors and known coronary artery disease with residual nonobstructive plaque, now more than ever it would be of critical importance for her to be on a statin, ideally with the intention of going back to atorvastatin 40 mg daily.It is exceedingly unlikely that this medication is causing her nightmares. She will contact Suresh Patel, her regular PCP for a re-prescription. Conversely, and particularly in seniors, probably related to their increased lipophilic space, metoprolol and carvedilol are notorious culprits for unusual dreams and nightmares, and I wonder if this is the case. I have given instructions to discontinue metoprolol since she is more than 1 year out ofher stent and does not appear to be having a secondary strict indication. I told her to monitor her sleep for the next couple weeks in the absence of metoprolol. If there issignificant improvement and resolution of the symptoms, then we can assume that this was a side effect from the medication. On the other hand, if the symptoms are pervasive, I would be inclined to have her referred to Sleep Medicine for a follow-up and a formal polysomnography. I have placed orders for a 12 month follow-up with basic cardiovascular testing including a lipid panel and a 12 lead EKG, patient will let us know if there is any need to meet sooner. documented in this encounter Plan of Treatment Scheduled Referrals Name Type Priority Associated Order Schedule Diagnoses Cardiovascular Disease Outpatient Referral Routine Expected: office visit (clinic) 2018 (Approximate), Expires: 08/03/2020 documented as of this encounter Procedures Procedure Name Priority Date/Time Associated Diagnosis Comme nts ECG Routine 08/03/2017 9:18 AM Hyperlipidemia Result s for this CDT procedure are i n the results section . documented in this encounter Results ECG 12 Lead (07/27/2018 10:08 AM CDT) P athologist Signature Ventricular Rate 83 BPM MUSE ECG/Min NV Interval 144 ms MUSE QRSD Interval 84 ms MUSE QT Interval 362 ms MUSE QTC Interval 425 ms MUSE P Wheelwright 62 degrees MUSE R Wheelwright -20 degrees MUSE T Wave Wheelwright 79 degrees MUSE Specimen Anatomical Collection Method [...] Code Phon e Number MUSE MUSE NA ECG 12 Lead (08/03/2017 9:18 AM CDT) P athologist Signature Ventricular Rate 78 BPM MUSE ECG/Min NV Interval 136 ms MUSE QRSD Interval 80 ms MUSE QT Interval 378 ms MUSE QTC Interval 430 ms MUSE P Wheelwright 59 degrees MUSE R Wheelwright -13 degrees MUSE T Wave Wheelwright 74 degrees MUSE Specimen Anatomical Collection Method Collection Time Receive d Time (Source) Location / / Volume Laterality 08/03/2017 9:18 08/03/2017 AM CDT 10:44 AM CDT Impressions MUSE - 08/03/2017 10:44 AM CDT Normal sinus rhythm Nonspecific T wave abnormality When compared with ECG of 27-JAN-2015 05 :23, No significant change was found Narrative This result has an attachment that is no t available. Erik Hayes M.D. ECG ORDERABLES Performing Organization Address City/State/ZIP Code Phon e Number MUSE MUSE NA documented in this encounter Visit Diagnoses Diagnosis Coronary Artery Disease Ewiiaapaayp Vessel - Primary Hyperlipidemia Arthritis Rheumatoid (HCC) Diabetes Mellitus Type 2 (HCC) Nightmare Disorder Hyperlipidemia Arthritis Rheumatoid (HCC) Coronary Artery Disease Ewiiaapaayp Vessel Diabetes Mellitus Type 2 (HCC) documented in this encounter Additional Health Concerns Assessment Noted Time PHQ-9 Depression Total Score: 7 06/21/2014 9:20 AM CD T documented as of this encounter
--- OUTSIDE RECORDS SUMMARY | 2021-09-05 07:59 | XMS_ITS | Encounter Summary ---
:1945 Author Organization [facility] Address [address] [place] [address] Care Team Providers Name Role Phone Unavailable Primary Care Provider Unavailable Encounter Details Date Type Department Care Team Description 02/02/2018 Hospital Encounter Department of Adriane Patel, Mass Inguinal Radiology in [place], [place] [facility] [address] [place] [id number] [phone] Social History Tobacco Use Types Packs/Day Years [...] as of this encounter Visit Diagnoses Diagnosis Mass Inguinal documented in this encounter Additional Health Concerns Assessment Noted Time PHQ-9 Depression Total Score: 7 06/21/2014 9:20 AM CD T documented as of this encounter
--- OUTSIDE RECORDS SUMMARY | 2021-09-05 07:59 | XMS_ITS | Encounter Summary ---
:1945 Author Organization [facility] Address [address] [place] [address] Care Team Providers Name Role Phone Unavailable Primary Care Provider Unavailable Reason for Referral Outpatient (Routine) - Closed Specialty Diagnoses / Procedures Referred By Contact Refer red To Contact Cardiovascular Disease Vignesh Currie [facility] S E ABEBA Sandhu M.D. [address] [place] [address] Referral ID Status Reason Start Date Expiration Date Visits Requ ested Visits Authorized [id number] Closed 04/26/2018 04/26/2019 1 1 Reason for Visit Reason Comments Follow-up [facility] patient. Shortness of Breath Outpatient (Routine) - Closed Specialty Diagnoses / Procedures Referred By Contact Refer red To Contact Cardiovascular Disease MARIA DEL ROSARIO Escamilla [address] Phoebe Jean-Baptiste M.D. [address] [place] [address] Referral ID Status Reason Start Date Expiration Date Visits Requ ested Visits Authorized [id number] Closed 08/03/2017 08/03/2018 1 1 Encounter Details Date Type Department Care Team Description 04/26/2018 Office Visit Department of Vignesh Currie Coronary Ar wilbert Disease [place] Vessel (Primary Dx); Cardiovascular Diseases Lee Lance Diabetes Mellitus Type 2 (HCC); in [facility] [address] [address] [place], [place] [phone] (Work) [phone] Social History Tobacco Use Types Packs/Day Years [...] Sign Reading Time Taken Comments Blood Pressure 130/78 04/26/2018 8:32 AM CDT Pulse 84 04/26/2018 8:32 AM CDT Temperature - - Respiratory Rate - - Oxygen Saturation - - Inhaled Oxygen Concentration - - Weight 82 kg (180 lb 12.4 oz) 04/26/2018 8:32 AM CDT Height 157 cm (5' 1.81) 04/26/2018 8:32 AM CDT Body Mass Index 33.27 04/26/2018 8:32 AM CDT documented in this encounter Progress Notes Vignesh Currie M.D. - 04/26/2018 8:17 AM CDT CARDIOLOGY PROGRESS NOTE SUBJECTIVE CHIEF COMPLAINT/REASON FOR VISIT Ischemic heart disease, dizziness. HISTORY OF PRESENT ILLNESS Marcial is a pleasant 72-year-old female from [place], [place]. She has previously followed with my colleague, Dr. Amato as well as Dr. Caal. I reviewed their recent consultation notes. She has a history of coronary artery disease which predates to 2014 when she was having exertional dyspnea and atypical shoulder discomfort. Stress echo was technically negative, but given a decreased exercise capacity, the decision was made to proceed to coronary angiography. She had a 70% lesion in the LAD and underwent drug- eluting stent placement. Her symptoms of dyspnea and shoulder discomfort improved following that. More recently, she is followed for concerns of nightmares which improved after discontinuing metoprolol, as well as lightheaded spells. The patient informs me she underwent a Neurology workup at [facility] and was given a diagnosis of vertigo. She does notrecall specific therapeutic intervention. She has additional comorbidities of hyperlipidemia on a very low dose of Crestor. She has hypertension on a very low dose of lisinopril. She was diagnosed with rheumatoid arthritis and is on leflunomide. She has type 2 diabetes managed with glipizide and Januvia. She continues on daily baby aspirin without bleeding issues. Today, Marcial describes 2 concerns. One of these is shortness of breath and some occasional shoulder and neck tightness. She feels that her shoulder neck tightness is not as frequent as when she presented in 2015, but is somewhat reminiscent of prior anginal equivalent. She has stairs in the home and is able to ascend and descend without effort-limiting dyspnea. She is also able to carry laundry up and down the stairs. She did recently climb the hill to the shed on her property and trailed behind her . She noted she was significantly short of breath and actually had to stop and catch her breath. This was the most physically demanding physical activity she had undertaken in the past several months. Overall, she is rating her functional capacity 75% at best. Her atypical shoulder and neck discomfort is not consistently related to physical activity. She denies chest pain. She has had no lower extremity swelling. No bleeding issues. No stroke or TIA symptoms. Lastly, she continues to have occasional spells of dizziness and unsteadiness. She has some symptoms that would suggest positional vertigo such as exacerbation with head turning, but in contrast, she does not identify a room-spinning sensation. Fortunately, she has not had falls. She feels the spells may last for 1 hour or more in the mornings. OBJECTIVE PHYSICAL EXAMINATION Vital Signs: Height 157 cm, weight 82 kg. Blood pressure 130/78. General: Elderly female sitting comfortably, in no acute distress. Eyes: Anicteric. ENT: The mucous membranes are moist. Lungs: Clear to auscultation without dullness or wheezing. Vessels: Bilateral carotid upstrokes normal amplitude. No bruit. Bilateral radial pulse 3/4 and regular. Heart: Cardiac auscultation normal. Central venous pressure normal. Abdomen: Soft, nontender. No abdominal bruit. Extremities: There is trace to 1+ minimally pitting edema above the sock line. Skin: No visible ecchymosis, bruising, or breakdown. Psychiatric: Alert, oriented, responding appropriately. Neurologic: Afocal. ASSESSMENT / PLAN #1 Dyspnea on exertion, [...] pleasure to visit with Marcial and her . She has 2 concerns today. One is exertional dyspnea and occasional neck and shoulder tightness somewhat reminiscent of prior anginal equivalent. She also describes ongoing dizziness and unsteady episodes. I think the most likely explanation for her dyspnea is deconditioning. She does not participate in any formal exercise other than light chores in the home. Importantly, she is able to exert herself beyond 4 METs (carrying a basket of laundry up the stairs) without effort-limiting dyspnea. There is not a clear consistent relationship between exertional dyspnea and her neck and shoulder discomfort.Regardless of diagnostic or therapeutic considerations, improving her aerobic fitness will be the single most important intervention. As such, I have strongly encouraged her to increase her activity levels. She has a treadmill in the home. We discussed several different routines that she can incorporate. For her unsteadiness and dizzy episodes, she is interested in further evaluation. I am referring her to the [facility] to evaluate and treat. If her symptoms are not felt consistent with vertigo, then we will consider a Neurology consultation. I agree with Dr. Caal that autonomic dysfunction is in the differential. Patient informs me she has checked her blood glucose during the spells and has not identified hypoglycemia. Her prior lipid profile from July showed a marked elevation of LDL cholesterol. Her prior statin was discontinued due to concerns that it might be contributing to nightmares. She has recently restarted Crestor. I will plan to see her back in 3 months with a repeat lipid profile. We will also reassess her exertional symptoms at that time. Twenty-five minutes in consultation, greater than 50% in direct vexs-on-oznh counseling. CT CT Job ID: [id number] documented in this encounter Plan of Treatment Scheduled Referrals Name Type Priority Associated Order Schedule Diagnoses Cardiovascular Disease Outpatient Referral Routine Expected: office visit (clinic) 2018 (Approximate), Expires: 04/26/2021 documented as of this encounter Results (ABNORMAL) Lipid Panel (07/27/2018 10:23 AM CDT) P athologist Signature Cholesterol, 147 mg/dL 07/27/2018 Total [...] Organization Address City/State/ZIP Code Phon e Number [facility]- [address] [place] [address] [facility] documented in this encounter Visit Diagnoses Diagnosis Coronary Artery Disease [place] Vessel - Primary Diabetes Mellitus Type 2 (HCC) Vertigo documented in this encounter Additional Health Concerns Assessment Noted Time PHQ-9 Depression Total Score: 7 06/21/2014 9:20 AM CD T documented as of this encounter
--- OUTSIDE RECORDS SUMMARY | 2021-09-05 08:00 | XMS_ITS | Encounter Summary ---
:1945 Author Organization [facility] Address [address] [place] [address] Care Team Providers Name Role Phone Unavailable Primary Care Provider Unavailable Encounter Details Date Type Department Care Team Description 01/24/2015 Hospital Encounter HX [facility] [place] Gail Garrison M.D. [address] [place] [phone] (Wo rk) Social History Tobacco Use Types Packs/Day Years Used Date Smoking Tobacco: Never Assessed Alcohol Habits Answer Date Recorded [...] Sign Reading Time Taken Comments Blood Pressure 122/70 01/24/2015 11:33 AM ROTARY DRIER Pulse 70 01/24/2015 11:33 AM ROTARY DRIER Temperature - - Respiratory Rate 16 01/24/2015 11:33 AM ROTARY DRIER Oxygen Saturation - - Inhaled Oxygen Concentration - - Weight 86 kg (189 lb 9.5 oz) 01/24/2015 11:33 AM ROTARY DRIER Height 158 cm (5' 2.21) 01/24/2015 11:33 AM ROTARY DRIER Body Mass Index 34.45 01/24/2015 11:33 AM ROTARY DRIER documented in this encounter Medications at Time of Discharge Medication Sig Dispensed Refills Start Date End Date ASPIRIN ORAL Take 81 mg by mouth daily. Take 0 with food for heart health. documented as of this encounter Progress Notes Gail Cortez M.D. - 01/24/2015 9:27 PM CST Clinic Full Note CHIEF COMPLAINT/REASON FOR VISIT Discuss next step after her recent ECHO. She does still get SOB going up the stairs HISTORY OF PRESENT ILLNESS Archie presents today to follow up on her recent cardiology appointment. Unfortunately there is not a note in the chart to review at this point. She saw Dr. Haile who patient reports recommended either doing a heart catheterization or a CT scan of her coronary arteries. Patient states that since we last saw her, she is more tired when she walks up stairs. She continues to be short of breath with activity and also complains of anterior left shoulder pain after she has been active. No chest pain. She also reports palpitations at times which can sometimes last all day. Yesterday she felt finebut today she just does not feel right. She also reports anxiety at times. It is not as intense aspast panic attacks. She sometimes takes Xanax and it is helpful. MEDICATIONS aspirin 81 mg oral tablet, 81 mg, 1 tab(s), Take with food for heart health., PO, Daily, 0 refills Cinnamon 500 mg oral capsule, 1,000 mg, 2 cap(s), PO, 2xDay clindamycin 1% topical gel, 1 shauna, rosacea, Topical, 2xDay, 3 refills erythromycin 0.5% ophthalmic ointment, 0.5 inch(es), Eyes(Both), 4xDay, 1 refills glipiZIDE 5 mg oral tablet, 5 mg, 1 tab(s), 30 minutes before breakfast, PO, Daily, 3 refills levothyroxine 75 mcg (0.075 mg) oral tablet, 75 mcg, 1 tab(s), for thyroid replacement, PO, Daily, 3 refills metFORMIN 500 mg oral tablet, extended release, 500 mg, 1 tab(s), PO, 2xDay, 3 refills potassium acetate, 1tab, OTC, PO, Daily simvastatin 10 mg oral tablet, 10 mg, 1 tab(s), Take for high cholesterol., PO, Bedtime, 3 refills Vitamin D3 5000 intl units oral tablet, 5,000 IntU, 1 tab(s), PO, Daily Xanax 0.5 mg oral tablet, 0.5 mg, 1 tab(s), Take for anxiety., PO, q8hr, PRN, 1 refills ALLERGIES azithromycin Benicar PAST MEDICAL HISTORY Chronic Abnormal Stress Test Anxiety disorder NOS Hyperlipidemia/Dyslipidemia Hypothyroidism NOS NIDDM [non-insulin dependent diabetes mellitus] Osteoarthritis Osteoporosis NOS Palpitations Renal Calculus Rosacea Shortness Of Breath (SOB) Historical No historical problems PROCEDURES/SURGICAL HISTORY Exercise stress echocardiography (01/04/2015), Colonoscopy (01/03/2009), HC COLONOSCOPY W BIOPSY - 07/06/02 (07/06/2002), C LAP,HERNIA REPAIR PROC,UNLIST - 03/22/01 (03/22/2001), HC REPAIR INCISIONAL HERNIA,REDUCIBLE - 06/14/98 - Incisional hernia repair w mesh (06/14/1998), Biopsy of breast (02/16/1986), Appendectomy (1959), section. SOCIAL HISTORY Date Time: 01/24/2015 11:33 Tobacco: Smoking Status: Never smoker Exposure: Care provider denies smoking in home, Other: never Alcohol: Use: No Results Found Recreational Drugs: Use: None Type: No Results Found FAMILY HISTORY Mother ( at 50 year(s)):Positive: CA - Breast cancer Father ( at 68 year(s)):Positive: CA - Lung cancer; Coronary artery disease Brother ( at 67 year(s)):Positive: Aneurysm; CA - Cancer of prostate; Diabetes mellitus Brother:Positive: Diabetes mellitus Daughter:Positive: Diabetes mellitus; Migraine SYSTEMS REVIEW As per HPI. VITAL SIGNS T: 37.2 ??C (Core) HR: 70 RR: 16 BP: 122 / 70 HT: 158 cm WT: 86.0 kg BMI: 34.45 PHYSICAL EXAMINATION General: Alert and oriented. No acute distress. Neck: Supple. No lymphadenopathy. No carotid bruits. Cardiovascular exam: Regular rate and rhythm. Normal S1 and S2. No murmurs, rubs, or gallops. Lungs: Clear to auscultation bilaterally. Extremities: No pedal edema. IMPRESSION/REPORT/PLAN 1. Dyspnea NOS Patient continues to have worrisome symptoms for coronary blockage. I was able to speak with Dr. Haile regarding her recommendations and she would like to proceed with the heart cath if patient was willing which she now is. This will be arranged. Ordered: OV Est Pt Level 4 - 49475 - 25 min 2. Palpitations Patient reports symptoms of palpitations and not feeling well. We placed a Holter monitor today tohelp determine if patient is having any arrhythmias that are contributing. Ordered: OV Est Pt Level 4 - 35422 - 25 min 3. Anxiety NOS At this point, will not make any changes to patient's Xanax. Once we know more about her cardiac status, we may make changes if her anxiety continues to be an issue. Ordered: OV Est Pt Level 4 - 28278 - 25 min Orders: Holter Monitor 48Hr Electronically Signed By: GAIL VILLAR MD On: 01/24/2015 09:31 PM Source: [facility] POWERRubyRide Document Id: [id number] RY DRIER documented in this encounter Miscellaneous Notes Miscellaneous - Gail Cortez M.D. - 01/24/2015 12:07 PM ROTARY DRIER Ambulatory Patient Summary [address] [id number] Visit Information Name: ARCHIE BAZANIEL [facility] Number: [phone] Current Date: 01/24/2015 12:07:07 Physicians Attending Provider: GAIL VILLAR MD Primary Care Provider: GAIL VILLAR MD ARCHIE BAZAN has been given the following list of follow-up instructions, medication list, and patient education materials: Follow-up Instructions Your Medications Here is a list of your medications. It is important to take your medications as directed. Use a pillbox or chart to help remind you to take your medications. Please let your doctor or nurse know if you have problems taking your medications. Medication/Strength How to Take Indications/Special Instructions/Comments/Notes for Patient Medication Changes/Routing ALPRAZolam (Xanax 0.5 mg oral tablet) 1 Tablet(s), Oral, every 8 hours as needed for Anxiety Take for anxiety. / scofields aspirin (aspirin 81 mg oral tablet) 1 Tablet(s), Oral, once a day Take with food for heart health. clindamycin topical (clindamycin 1% topical gel) 1 shauna, Topical, two times a day rosacea glipiZIDE (glipiZIDE 5 mg oral tablet) 1 Tablet(s), Oral, once a day 30 minutes before breakfast levothyroxine (levothyroxine 75 mcg (0.075 mg) oral tablet) 1 Tablet(s), Oral, once a day for thyroid replacement metFORMIN (metFORMIN 500 mg oral tablet, extended release) 1 Tablet(s), Oral, two times a day simvastatin (simvastatin 10 mg oral tablet) 1 Tablet(s), Oral, once a day (at bedtime) Take for highcholesterol. Stop Taking the Following Medications: Medication list as of 01-24-15 12:07 Attention: If you have any medications at home that are not on this list, DO NOT take them until youcontact your provider for clarification. Give a copy of your medication list to your primary care provider. Update your medication list any time medications or doses are changed and carry your medication list at all times in case of emergency. Electronically Signed By: GAIL VILLAR MD Signed On:24-JAN-2015 12:06:47 Your Allergies & Intolerances Substance Reaction Symptoms Category Comments azithromycin Drug Benicar Drug Your Problem List Problem Status Onset Comments NIDDM [non-insulin dependent diabetes mellitus] Active 06/05/2007 Hyperlipidemia/Dyslipidemia Active 2004 Osteoarthritis Active 01/07/11 date of onset unknown Osteoporosis NOS Active 01/07/11 date of onset unknown; 04/30/12 osteopenia noted on bone density scan on 04/28/12. Rosacea Active 2006 TIA [Transient ischemic attack] Active 06/05/2007 Anxiety disorder NOS Active 06/05/1987 Renal Calculus Active 04/28/2011 Hypothyroidism NOS Active 03/09/2012 Palpitations Active 03/12/2012 03/18/12 Holter monitor completed: results concluded four events weretransmitted. Event 1 was sinus rhythm. The heart rate varied from 75 to 83 bpm. No ectopy was present. Events 2, 3 and 4 had no useable data. Shortness Of Breath (SOB) Active Abnormal Stress Test Active Your Upcoming Appointments Date Time Location Provider No Appointments found Attention: Contact your local Clinic if further appointment detail needed. Consider Using Patient Online Services Patient Online Services is a secure online and Mobile application that lets you: ?? View lab and test results ?? View portions of your medical record including clinical notes, immunizations and dischargesummaries ?? Request an appointment or medication refill ?? Review your appointment schedule ?? Send secure messages to your care team Its easy to create an account if you dont have one. Go to [email or web address] and click on Create Your Account. Then, follow the directions to complete the online form. Youll be asked for your [facility] number which you can find at the top of this document. Your Goals/Additional instructions: Source: [facility] POWERCHART Document Id: [id number] RY DRIER Miscellaneous - Gail Cortez M.D. - 01/24/2015 12:07 PM ROTARY DRIER Ambulatory Discharge Medication List [address] [id number] Visit Information Name: ARCHIE BAZAN [facility] Number: [phone] Visit Date: 01/24/2015 12:07:05 Attending Provider: GAIL VILLAR MD Primary Care Provider: GAIL VILLAR MD ARCHIE BAZAN has been given the following list of medications: Your Medications It is important to take your medications as directed. Use a pill box or chart to help remind you to take your medications. Please let your doctor or nurse know if you have problems taking your medications. Medication/Strength How to Take Indications/Special Instructions/Comments/Notes for Patient Medication Changes/Routing ALPRAZolam (Xanax 0.5 mg oral tablet) 1 Tablet(s), Oral, every 8 hours as needed for Anxiety Take for anxiety. / scofields aspirin (aspirin 81 mg oral tablet) 1 Tablet(s), Oral, once a day Take with food for heart health. clindamycin topical (clindamycin 1% topical gel) 1 shauna, Topical, two times a day rosacea glipiZIDE (glipiZIDE 5 mg oral tablet) 1 Tablet(s), Oral, once a day 30 minutes before breakfast levothyroxine (levothyroxine 75 mcg (0.075 mg) oral tablet) 1 Tablet(s), Oral, once a day for thyroid replacement metFORMIN (metFORMIN 500 mg oral tablet, extended release) 1 Tablet(s), Oral, two times a day simvastatin (simvastatin 10 mg oral tablet) 1 Tablet(s), Oral, once a day (at bedtime) Take for highcholesterol. Stop Taking the Following Medications: Medication list as of 01-24-15 12:07 Attention: If you have any medications at home that are not on this list, DO NOT take them until youcontact your provider for clarification. Give a copy of your medication list to your primary care provider. Update your medication list any time medications or doses are changed and carry your medication list at all times in case of emergency. Electronically Signed By: GAIL VILLAR MD Signed On:24-JAN-2015 12:06:47 Additional Information: Source: [facility] POWERCHART Document Id: [id number] RY DRIER Miscellaneous - Yadira Lomeli, L.P.N. - 01/24/2015 11:33 AM CST Adult Baked Goods Stock Clerk Intake/History Adult Baked Goods Stock Clerk Intake/History Entered On: 01/24/2015 11:36 ROTARY DRIER Performed On: 01/24/2015 11:33 ROTARY DRIER by YADIRA LOMELI Intake Chief Complaint : Discuss next step after her recent ECHO. She does still get SOB going up the stairs Temperature Core : 37.2 DegC(Converted to: 99.0 DegF) Peripheral Pulse Rate : 70 /min Respiratory Rate : 16 /min Heart Rhythm : Regular Systolic Blood Pressure : 122 mmHg Diastolic Blood Pressure : 70 mmHg NIBP Mean : 87 mmHg BP Location : Left upper extremity Blood Pressure Cuff Size : Regular Height : 158 cm(Converted to: 5 ft 2 inch(es), 62 inch(es)) Actual Weight : 86.0 kg(Converted to: 189 lb 10 oz) Weight Source : Standing scale Dosing Weight Clinic : 86 kg Clinic BSA : 1.94 Body Mass Index : 34.45 kg/m2 YADIRA LOMELI - 01/24/2015 11:33 ROTARY DRIER General Info Information Given By : Patient Languages : Maori Is Patient Female and 13-50 no hysterectomy : YADIRA Covarrubias - 01/24/2015 11:33 ROTARY DRIER Subjective Pain Symptoms : YADIRA Covarrubias - 01/24/2015 11:33 ROTARY DRIER Dependent Habits Exposure to Tobacco Smoke : Care provider denies smoking in home, Other: never Smoking Status : Never smoker Tobacco 2A : YADIRA Covarrubias - 01/24/2015 11:33 ROTARY DRIER Caffeine Use Grid Caffeine Use : Past Type : Coffee, Soft drinks Frequency : Occasionally Amount : 1 cup per week YADIRA LOMELI - 01/24/2015 11:33 ROTARY DRIER Recreational Drug Use Grid Drug Use : None YADIRA LOMELI 01/24/2015 11:33 ROTARY DRIER Source: [facility] POWERCHART Document Id: [id number] ROTARY DRIER!37 RY DRIER documented in this encounter Plan of Treatment Not on filedocumented as of this encounter Visit Diagnoses Not on filedocumented in this encounter Additional Health Concerns Assessment Noted Time PHQ-9 Depression Total Score: 7 06/21/2014 9:20 AM CD T documented as of this encounter
--- OUTSIDE RECORDS SUMMARY | 2021-09-05 08:00 | XMS_ITS | Encounter Summary ---
:1945 Author Organization [facility] Address [address] [place] [address] Care Team Providers Name Role Phone Unavailable Primary Care Provider Unavailable Encounter Details Date Type Department Care Team Description 02/01/2015 Hospital Encounter HX [facility] [place] Gail Garrison M.D. [address] [place] [phone] (Wo rk) Social History Tobacco Use [...] Sign Reading Time Taken Comments Blood Pressure 122/52 02/01/2015 12:42 PM ASSEMBLER PING PONG TABLE Pulse 70 02/01/2015 12:42 PM ASSEMBLER PING PONG TABLE Temperature - - Respiratory Rate 18 02/01/2015 12:42 PM ASSEMBLER PING PONG TABLE Oxygen Saturation - - Inhaled Oxygen Concentration - - Weight - - Height 158 cm (5' 2.21) 02/01/2015 12:42 PM ASSEMBLER PING PONG TABLE Body Mass Index - - documented in this encounter Medications at Time of Discharge Medication Sig Dispensed Refills Start Date End Date ASPIRIN ORAL Take 81 mg by mouth 0 03/02/2012 daily. Take with food for heart health. nitroglycerin (NITROSTAT) Place under the 0 01/2607/29/2018 0.4 mg SL tablet tongue as needed. documented as of this encounter Progress Notes Gail Cortez M.D. - 02/01/2015 7:13 AM CST Clinic Full Note CHIEF COMPLAINT/REASON FOR VISIT f/u hospital stay HISTORY OF PRESENT ILLNESS Archie presents today in followup of a heart catheterization last week. She ended up having a 70% blockage in her left anterior descending artery and they placed a drug-eluting stent. Since then patient reports that she has been feeling cold and gets weak and tired if she does something. Once she rests, her symptoms improve and she can keep going. She denies any shortness of breath since the procedure. She feels something in her chest today although she has a hard time describing what it is. She has been doing okay on the Plavix and has not had any edema since the procedure. She is scheduled to start cardiac rehab tomorrow and sees Dr. Haile on February 05. She has many questions regarding the stent placement and the palpitations that she was feeling although it is not entirely clear tome if these are still occurring. MEDICATIONS aspirin 81 mg oral tablet, 81 mg, 1 tab(s), Take with food for heart MovieSet., PO, Daily, 0 refills clindamycin 1% topical gel, 1 shauna, rosacea, Topical, 2xDay, 3 refills glipiZIDE 5 mg oral tablet, 5 mg, 1 tab(s), 30 minutes before breakfast, PO, Daily, 3 refills levothyroxine 75 mcg (0.075 mg) oral tablet, 75 mcg, 1 tab(s), for thyroid replacement, PO, Daily, 3 refills metFORMIN 500 mg oral tablet, extended release, 500 mg, 1 tab(s), PO, 2xDay, 3 refills Plavix 75 mg oral tablet, 75 mg, 1 tab(s), daily, PO, Daily simvastatin 10 mg oral tablet, 10 mg, 1 tab(s), Take for high cholesterol., PO, Bedtime, 3 refills Xanax 0.5 mg oral tablet, 0.5 mg, [...] Appendectomy (1959), section. SOCIAL HISTORY Date Time: 02/01/2015 12:42 Tobacco: Smoking Status: No Results Found Exposure: No Results Found Alcohol: Use: No Results Found Recreational Drugs: Use: None Type: No Results Found FAMILY HISTORY Mother ( at 50 year(s)):Positive: CA - Breast cancer Father ( at 68 year(s)):Positive: CA - Lung cancer; Coronary artery disease Brother ( at 67 year(s)):Positive: Aneurysm; CA - Cancer of prostate; Diabetes mellitus Brother:Positive: Diabetes mellitus Daughter:Positive: Diabetes mellitus; Migraine SYSTEMS REVIEW As per HPI. No chest pain. VITAL SIGNS T: 36.4 ??C (Core) HR: 70 RR: 18 BP: 122 / 52 SpO2: 100% HT: 158 cm PHYSICAL EXAMINATION General: Alert and oriented. No acute distress. Neck: Supple. No lymphadenopathy. No carotid bruits. Cardiovascular exam: Regular rate and rhythm. Normal S1 and S2. Very soft 2/6 murmur. Lungs: Clear to auscultation bilaterally. Extremities: No pedal edema. IMPRESSION/REPORT/PLAN 1. Coronary Artery Disease (CAD) NOS Notes reviewed from [place]. Patient's questions answered to the best of my ability. She is noton a beta rich and I am uncertain why. I will send Dr. Haile a message so that this can be addressed at her upcoming appt. Continue simvastatin. Ordered: OV Est Pt Level 4 - 04125 - 25 min 2. Coronary Stent S/P Patient is overall doing well. We discussed that she will need to be on Plavix for one year and the stop date was added to her med list. Ordered: OV Est Pt Level 4 - 18980 - 25 min 3. Palpitations We reviewed her Holter monitor which did show some abnormalities. My assumption is that these would be managed medically. The beta rich could be beneficial. Again we will send a message to Dr. Haile so that she can review this prior to patient's appointment next week. Ordered: OV Est Pt Level 4 - 94883 - 25 min Electronically Signed By: GAIL VILLAR MD On: 02/02/2015 07:23 AM Source: [facility] POWERCHART Document Id: [id number] MBLER PING PONG TABLE documented in this encounter Miscellaneous Notes Miscellaneous - Gail Cortez M.D. - 02/01/2015 1:33 PM ASSEMBLER PING PONG TABLE Ambulatory Patient Summary [address] [id number] Visit Information Name: ARCHIE BAZAN [facility] Number: [id number] Current Date: 02/01/2015 13:33:51 Physicians Attending Provider: GAIL VILLAR MD Primary [...] shauna, Topical, two times a day rosacea clopidogrel (Plavix 75 mg oral tablet) 1 Tablet(s), Oral, once a day heart stop date 01/27/2016 glipiZIDE (glipiZIDE 5 mg oral tablet) 1 [...] the Following Medications: Medication list as of 02-01-15 13:33 Attention: If you have any medications at [...] Electronically Signed By: GAIL VILLAR MD Signed On:01-FEB-2015 13:33:36 Your Allergies & Intolerances Substance Reaction Symptoms [...] Your Upcoming Appointments Date Time Location Provider 02/02/2015 11:00 [facility] Rehab Srvs [facility] Cardio/Pulm Therapist 02/05/2015 14:15 [facility] Cardiology Mona Haile MD Attention: Contact your local Clinic if further [...] if you dont have one. Go to [email or web address] and click on Create Your Account. Then, follow the directions to complete the online form. Youll be asked for your [facility] number which you can find at the top of this document. Your Goals/Additional instructions: Source: [facility] POWERCHART Document Id: [id number] MBLER PING PONG TABLE Miscellaneous - Gail Cortez M.D. - 02/01/2015 1:33 PM ASSEMBLER PING PONG TABLE Ambulatory Discharge Medication List [address] [id number] Visit Information Name: ARCHIE BAZAN [facility] Number: [id number] Visit Date: 02/01/2015 13:33:50 Attending Provider: GAIL VILLAR MD Primary Care [...] shauna, Topical, two times a day rosacea clopidogrel (Plavix 75 mg oral tablet) 1 Tablet(s), Oral, once a day heart stop date 01/27/2016 glipiZIDE (glipiZIDE 5 mg oral tablet) 1 [...] the Following Medications: Medication list as of 02-01-15 13:33 Attention: If you have any medications at [...] Electronically Signed By: GAIL VILLAR MD Signed On:01-FEB-2015 13:33:36 Additional Information: Source: [facility] POWERCHART Document Id: [id number] MBLER PING PONG TABLE Miscellaneous - Mel Batista, L.P.N. - 02/01/2015 12:42 PM CST Adult Reexaminer Intake/History Adult Reexaminer Intake/History Entered On: 02/01/2015 12:45 ASSEMBLER PING PONG TABLE Performed On: 02/01/2015 12:42 ASSEMBLER PING PONG TABLE by MEL BATISTA LPN Intake Chief Complaint : f/u hospital stay Temperature Core : 36.4 DegC(Converted to: 97.5 DegF) (LOW) Peripheral Pulse Rate : 70 /min Respiratory Rate : 18 /min Heart Rhythm : Regular Systolic Blood Pressure : 122 mmHg Diastolic Blood Pressure : 52 mmHg NIBP Mean : 75 mmHg BP Location : Left upper extremity Blood Pressure Cuff Size : Large SpO2 : 100 % Oxygen Therapy : Room air Height : 158 cm(Converted to: 5 ft 2 inch(es), 62 inch(es)) Weight Source : Standing scale MEL BATISTA [facility] - 02/01/2015 12:42 ASSEMBLER PING PONG TABLE General Info Information Given By : Patient Languages : Macedonian Is Patient Female and 13-50 no hysterectomy : MEL Hunter [facility] - 02/01/2015 12:42 ASSEMBLER PING PONG TABLE Subjective Pain Symptoms : MEL Hunter [facility] - 02/01/2015 12:42 ASSEMBLER PING PONG TABLE Dependent Habits Exposure to Tobacco Smoke : Care provider denies smoking in home, Other: never Smoking Status : Never smoker Tobacco 2A : MEL Hunter [facility] - 02/01/2015 12:42 ASSEMBLER PING PONG TABLE Caffeine Use Grid Caffeine Use : Past Type : Coffee, Soft drinks Frequency : Occasionally Amount : 1 cup per week MEL BATISTA [facility] - 02/01/2015 12:42 ASSEMBLER PING PONG TABLE Recreational Drug Use Grid Drug Use : None MEL BATISTA [facility] - 02/01/2015 12:42 ASSEMBLER PING PONG TABLE Source: [employer] POWERCHART Document Id: [id number] ASSEMBLER PING PONG TABLE!35 MBLER PING PONG TABLE documented in this encounter Plan of Treatment Not on filedocumented as of this encounter Visit Diagnoses Not on filedocumented in this encounter Additional Health Concerns Assessment Noted Time PHQ-9 Depression Total Score: 7 06/21/2014 9:20 AM CD T documented as of this encounter
--- OUTSIDE RECORDS SUMMARY | 2021-09-05 08:00 | XMS_ITS | Encounter Summary ---
:1945 Author Organization [facility] Address [address] [place] [address] Care Team Providers Name Role Phone Unavailable Primary Care Provider Unavailable Encounter Details Date Type Department Care Team Description 04/17/2015 Hospital Encounter HX [facility] Gail gamez M.D. [address] [place] [phone] (Wo rk) Social History Tobacco Use [...] Sign Reading Time Taken Comments Blood Pressure 125/56 04/17/2015 2:29 PM GENERAL PASSENGER AGENT Pulse 70 04/17/2015 2:29 PM GENERAL PASSENGER AGENT Temperature - - Respiratory Rate 16 04/17/2015 2:29 PM GENERAL PASSENGER AGENT Oxygen Saturation - - Inhaled Oxygen Concentration - - Weight 86.4 kg (190 lb 7.6 oz) 04/17/2015 2:29 PM GENERAL PASSENGER AGENT Height 158 cm (5' 2.21) 04/17/2015 2:29 PM GENERAL PASSENGER AGENT Body Mass Index 34.61 04/17/2015 2:29 PM GENERAL PASSENGER AGENT documented in this encounter Medications at Time of Discharge Medication Sig Dispensed Refills Start Date End Date ALPRAZolam (XANAX) 0.5 mg Take 1 tablet by 0 03/19 tablet mouth every 8 (eight) hours as needed for anxiety. ASPIRIN ORAL Take 81 mg by mouth 0 03/02/2012 daily. Take with food for heart health. atorvastatin (for_LIPITOR) Take 1 tablet by 0 04/26/2018 40 mg tablet mouth at bedtime. nitroglycerin (NITROSTAT) Place under the 0 01/2607/29/2018 0.4 mg SL tablet tongue as needed. documented as of this encounter Progress Notes Gail Cortez M.D. - 04/17/2015 3:16 PM CST Clinic Full Note CHIEF COMPLAINT/REASON FOR VISIT Left check area spot that is hot jesus area moves HISTORY OF PRESENT ILLNESS Archie presents today to follow up on the left sided cheek burning sensation that has been ongoing for approximately 2 weeks. She will go for long periods of time and will then have the sudden onset of a small area maybe approximately 3 mm in size that will burn. It lasts maybe 1 minute and goes away. It has moved around the cheek. She has never had anything similar in the past. This is different from her rosacea pain but she does note she has not been using her Clindagel often. Otherwise no runny nose, sore throat, visual changes, ear pain, headache, other associated pain, or shortness of breath. She is most worried about shingles. In regards to diabetes, patient will sometimes forgets to take her second dose of glipizide until she is eating. She wonders when she should take it in that situation. She does think that her blood sugars have been better. They are generally in the 140 to 150 range. She did have a reading of 88 at noon today and felt low. MEDICATIONS aspirin 81 mg oral tablet, 81 mg, 1 tab(s), Take with food for heart health., PO, Daily, 0 refills atorvastatin 40 mg oral tablet, 40 mg, 1 tab(s), PO, Bedtime, 3 refills clindamycin 1% topical gel, 1 shauna, rosacea, Topical, 2xDay, 3 refills glipiZIDE 5 mg oral tablet, 5 mg, 1 tab(s), 30 minutes before breakfast, PO, 2xDay, 3 refills levothyroxine 75 mcg (0.075 mg) oral tablet, 75 mcg, 1 tab(s), for thyroid replacement, PO, Daily, 3 refills metFORMIN 500 mg oral tablet, extended release, 1,000 mg, 2 tab(s), with evening meal, PO, Daily, 3refills metoprolol succinate 25 mg oral tablet, extended release, 12.5 mg, 0.5 tab(s), PO, Daily, 3 refills Plavix 75 mg oral tablet, 75 mg, 1 tab(s), heartstop date 01/27/2016, PO, Daily Xanax 0.5 mg oral tablet, 0.5 mg, 1 tab(s), Take for anxiety., PO, q8hr, PRN, 1 refills ALLERGIES azithromycin Benicar PAST MEDICAL HISTORY Chronic Abnormal Stress Test Anxiety disorder NOS Coronary Artery Disease (CAD) Iroquois Vessel Hyperlipidemia/Dyslipidemia Hypothyroidism NOS NIDDM [non-insulin dependent diabetes [...] Appendectomy (1959), section. SOCIAL HISTORY Date Time: 04/17/2015 14:29 Tobacco: Smoking Status: Never smoker Exposure: Care provider denies smoking in home, Other: never Alcohol: Use: No Recreational Drugs: Use: None Type: No Results Found FAMILY HISTORY Mother ( at 50 year(s)):Positive: CA - Breast cancer Father ( at 68 year(s)):Positive: CA - Lung cancer; Coronary artery disease Brother ( at 67 year(s)):Positive: Aneurysm; CA - Cancer of prostate; Diabetes mellitus Brother:Positive: Diabetes mellitus Daughter:Positive: Diabetes mellitus; Migraine SYSTEMS REVIEW As per HPI. VITAL SIGNS T: 36.1 ??C (Core) HR: 70 RR: 16 BP: 125 / 56 SpO2: 100% HT: 158 cm WT: 86.4 kg BMI: 34.61 PHYSICAL EXAMINATION General: Patient is alert and oriented in no acute distress. HEENT: Right TM clear. Left TM clear. Nasal mucosa is unremarkable. Oral mucosa is moist. Oropharynx is nonerythematous. Neck: Supple. No lymphadenopathy. Heart: Regular rate and rhythm. Normal S1 and S2. 2/6 murmur. Lungs: Clear to auscultation. Skin: Some redness to bilateral anterior cheeks. There are erythematous papular lesions to her chin. No vesicles. IMPRESSION/REPORT/PLAN 1. Burning Sensation Skin I do not see anything worrisome on exam today nor with the history. Patient is worried about shingles but I do not see any vesicular lesions. I recommended that she try using the Clindagel on her face more consistently and see if that helps. She was advised to call if she does develop a rash. Ordered: OV Est Pt Level 3 - 83578 - 15 min 2. DM2 We are not going to make any changes to patient's blood sugar regimen today. We discussed that shecan take the glipizide when she remembers it. I also discussed the potential of changing the glipizide to extended release so she only takes it once a day but she was okay with leaving it as it was. Ordered: OV Est Pt Level 3 - 87923 - 15 min Electronically Signed By: GAIL VILLAR MD On: 04/17/2015 03:19 PM Source: [facility] POWERCHART Document Id: [id number] RAL PASSENGER AGENT documented in this encounter Miscellaneous Notes Miscellaneous - Gail Cortez M.D. - 04/17/2015 3:06 PM GENERAL PASSENGER AGENT Ambulatory Patient Summary [address] [id number] Visit Information Name: ARCHIE BAZAN [facility] Number: [id number] Current Date: 04/17/2015 15:06:02 Physicians Attending Provider: GAIL VILLAR MD Primary Care Provider: GAIL VILLAR MD ELIDASTEVENARCHIEIEL has been given the following list of [...] day Take with food for heart health. atorvastatin (atorvastatin 40 mg oral tablet) 1 Tablet(s), Oral, once a day (at bedtime) clindamycin topical (clindamycin 1% topical gel) 1 shauna, Topical, two times a day rosacea clopidogrel (Plavix 75 mg oral tablet) 1 Tablet(s), Oral, once a day heart stop date 01/27/2016 glipiZIDE (glipiZIDE 5 mg oral tablet) 1 Tablet(s), Oral, two times a day 30 minutes before breakfast levothyroxine (levothyroxine 75 mcg (0.075 mg) oral tablet) 1 Tablet(s), Oral, once a day for thyroid replacement metFORMIN (metFORMIN 500 mg oral tablet, extended release) 2 Tablet(s), Oral, once a day with evening meal metoprolol (metoprolol succinate 25 mg oral tablet, extended release) 0.5 Tablet(s), Oral, once a day Stop Taking the Following Medications: Medication list as of 04-17-15 15:06 Attention: If you have any medications at [...] Electronically Signed By: GAIL VILLAR MD Signed On:17-APR-2015 15:04:53 Your Allergies & Intolerances Substance Reaction Symptoms [...] Breath (SOB) Active Abnormal Stress Test Active Coronary Artery Disease (CAD) Iroquois Vessel Active Your Upcoming Appointments Date Time Location Provider 04/18/2015 08:00 [facility] Rehab Srvs [facility] Cardio/Pulm Therapist 04/20/2015 08:00 [facility] Rehab Srvs [facility] Cardio/Pulm Therapist 05/24/2015 08:00 [facility] Lab 05/24/2015 08:15 [facility] Family Med Gail Gabriel MD 06/23/2015 14:30 [facility] Pierce Mcmahon MD, Lon Leblanc Attention: Contact your local Clinic if further [...] if you dont have one. Go to [email or web address] and click on Create Your Account. Then, follow the directions to complete the online form. Youll be asked for your [facility] number which you can find at the top of this document. Your Goals/Additional instructions: Source: [facility] POWERCHART Document Id: [id number] RAL PASSENGER AGENT Miscellaneous - Gail Cortez M.D. - 04/17/2015 3:06 PM GENERAL PASSENGER AGENT Ambulatory Discharge Medication List [address] [place] [id number] Visit Information Name: ARCHIE BAZAN [facility] Number: [id number] Visit Date: 04/17/2015 15:06:00 Attending Provider: GAIL VILLAR MD Primary Care [...] day Take with food for heart health. atorvastatin (atorvastatin 40 mg oral tablet) 1 Tablet(s), Oral, once a day (at bedtime) clindamycin topical (clindamycin 1% topical gel) 1 shauna, Topical, two times a day rosacea clopidogrel (Plavix 75 mg oral tablet) 1 Tablet(s), Oral, once a day heart stop date 01/27/2016 glipiZIDE (glipiZIDE 5 mg oral tablet) 1 Tablet(s), Oral, two times a day 30 minutes before breakfast levothyroxine (levothyroxine 75 mcg (0.075 mg) oral tablet) 1 Tablet(s), Oral, once a day for thyroid replacement metFORMIN (metFORMIN 500 mg oral tablet, extended release) 2 Tablet(s), Oral, once a day with evening meal metoprolol (metoprolol succinate 25 mg oral tablet, extended release) 0.5 Tablet(s), Oral, once a day Stop Taking the Following Medications: Medication list as of 04-17-15 15:06 Attention: If you have any medications at [...] Electronically Signed By: GAIL VILLAR MD Signed On:17-APR-2015 15:04:53 Additional Information: Source: [facility] POWERCHART Document Id: [id number] RAL PASSENGER AGENT Miscellaneous - Petra Lopez L.P.N. - 04/17/2015 2:29 PM CST Adult Strategy Director Intake/History Adult Strategy Director Intake/History Entered On: 04/17/2015 14:34 GENERAL PASSENGER AGENT Performed On: 04/17/2015 14:29 GENERAL PASSENGER AGENT by PETRA LOPEZ LPN Intake Chief Complaint : Left check area spot that is hot jesus area moves Onset of Symptoms : 2 weeks Temperature Core : 36.1 DegC(Converted to: 97.0 DegF) (LOW) Peripheral Pulse Rate : 70 /min Respiratory Rate : 16 /min Heart Rhythm : Regular Systolic Blood Pressure : 125 mmHg Diastolic Blood Pressure : 56 mmHg NIBP Mean : 79 mmHg BP Location : Left upper extremity Blood Pressure Cuff Size : Large SpO2 : 100 % Oxygen Therapy : Room air Height : 158 cm(Converted to: 5 ft 2 inch(es), 62 inch(es)) Actual Weight : 86.4 kg(Converted to: 190 lb 8 oz) Weight Source : Standing scale Dosing Weight Clinic : 86.4 kg Clinic BSA : 1.95 Body Mass Index : 34.61 kg/m2 PETRA LOPEZ LPN - 04/17/2015 14:29 GENERAL PASSENGER AGENT General Info Information Given By : Patient Languages : Bengali Is Patient Female and 13-50 no hysterectomy : No PETRA LOPEZ LPN - 04/17/2015 14:29 GENERAL PASSENGER AGENT Subjective Pain Symptoms : No PETRA LOPEZ LPN - 04/17/2015 14:29 GENERAL PASSENGER AGENT Dependent Habits Exposure to Tobacco Smoke : Care provider denies smoking in home, Other: never Smoking Status : Never smoker Tobacco 2A : No Tobacco Use/Currently Using : No Tobacco Use/Last 30 Days : No Tobacco Use/Last 12 months : No Alcohol Use : No PETRA LOPEZ LPN - 04/17/2015 14:29 GENERAL PASSENGER AGENT Caffeine Use Grid Caffeine Use : Past Type : Coffee, Soft drinks Frequency : Occasionally Amount : 1 cup per week PETRA LOPEZ LPN - 04/17/2015 14:29 GENERAL PASSENGER AGENT Recreational Drug Use Grid Drug Use : None PETRA LOPEZ LPN - 04/17/2015 14:29 GENERAL PASSENGER AGENT [facility] Document Id: [id number] GENERAL PASSENGER AGENT!44 RAL PASSENGER AGENT documented in this encounter Plan of Treatment Not on filedocumented as of this encounter Visit Diagnoses Not on filedocumented in this encounter Additional Health Concerns Assessment Noted Time PHQ-9 Depression Total Score: 7 06/21/2014 9:20 AM CD T documented as of this encounter
--- OUTSIDE RECORDS SUMMARY | 2021-09-05 08:00 | XMS_ITS | Encounter Summary ---
:1945 Author Organization [facility] Address [address] [place] [address] Care Team Providers Name Role Phone Unavailable Primary Care Provider Unavailable Encounter Details Date Type Department Care Team Description 03/02/2015 Hospital Encounter HX [facility] PHOSPHORIC ACID OPERATOR Gail Garrison M.D. [address] [place] [phone] (Wo rk) Social History Tobacco Use [...] Sign Reading Time Taken Comments Blood Pressure - - Pulse - - Temperature - - Respiratory Rate - - Oxygen Saturation - - Inhaled Oxygen Concentration - - Weight - - Height 158 cm (5' 2.21) 03/02/2015 8:46 AM DERRICK MAN Body Mass Index - - documented in [...] documented as of this encounter Progress Notes Rebecca Gregorio, JOAQUIN, LD - 03/02/2015 9:[address] met with patient in clinic today regarding cardiac diet and DM diet. Patient in cardiac rehab and thus this is part of her program. Patient with stint placed [id number] to 70% blockage. Patient noted she is feeling better and is not as winded now after surgery. Patient diet recall taken. Patient states she has never used salt shaker, avoids extra fats, and loves fruits/vegts and lean proteins. Is always looking for ways to make recipes healthier. Avoids high sodium foods and seldom adds cheese to much. A typical breakfast: Bowl of cheerios, 1/2 banana with peanut butter and 2% milk. Noon may be a salad with a bunch of different veggies on it and maybe an egg but seldom meat. Or she may have a 1/2 sandwich with fruit or leftovers from the night before. Supper meal tends to be the larger meal and has a meat/starch/veggie. Does try and watch how much carb at one time but did review carb counting with patient using My Food Plan Handout. Also provided patient with the Managing Cholestrol, Sodium, and Triglyceride handout. Patient asked a lot of questions about products in the store and which products are better. Encouraged light dressings, whole grains/whole wheat wherever possible, brown rice which she is already doing. Gave meal ideas, snack ideas and discussed portion control as well as pairing carbs with protein for better blood sugar control and improving metabolism. Encouraged to eat small amounts every 3 hours and use the plate method for portioning plate. RD will follow up as needed. RD contact information was provided. Darcy Gregorio MBA, ANTONIO, LD Electronically Signed By: REBECCA GREGORIO RDN, LD On: 03/02/2015 10:05 AM Source: [facility] POWERCHART Document Id: [id number] ICK MAN documented in this encounter Plan of Treatment Not on filedocumented as of this encounter Visit Diagnoses Not on filedocumented in this encounter Additional Health Concerns Assessment Noted Time PHQ-9 Depression Total Score: 7 06/21/2014 9:20 AM CD T documented as of this encounter
--- OUTSIDE RECORDS SUMMARY | 2021-09-05 08:00 | XMS_ITS | Encounter Summary ---
:1945 Author Organization [facility] Address [address] [place] [address] Care Team Providers Name Role Phone Unavailable Primary Care Provider Unavailable Encounter Details Date Type Department Care Team Description 09/05/2015 Hospital Encounter [facility] [address] [place] [phone] (Wo rk) Social History Tobacco Use [...] Sign Reading Time Taken Comments Blood Pressure 121/54 09/05/2015 12:22 PM CDT Pulse 64 09/05/2015 12:22 PM CDT Temperature - - Respiratory Rate [...] documented as of this encounter Progress Notes Ne Cortez M.D. - 09/05/2015 6:19 AM CDT Clinic Full Note CHIEF COMPLAINT/REASON FOR VISIT Here for: Mammogram/US follow up. Discuss SB HISTORY OF PRESENT ILLNESS Marcial presents today for followup on her diabetes and recent mammogram. She checks her blood sugars up to a couple times per day. Typically they are under 200. She can feel low in the 80s to 90s.When they are high, she can typically associate a dietary transgression. She states her exercise isnot good but she is active. Weight and diet have been stable. She states that she needs to have a mid morning snack and sometimes eat at bedtime to keep her blood sugar from getting low. [facility] Patient states she was called back for further testing with her mammogram. She has had a shooting pain in the left breast and some tenderness with water hitting her breast in the shower for years. She can even feel this discomfort lying on it. This has not been changing. Mammogram was reviewed and they did not see anything worrisome. Otherwise patient denies any chest pain, shortness of breath, sores on her feet, numbness, or tingling. MEDICATIONS aspirin 81 mg oral tablet, 81 [...] Anxiety disorder NOS Coronary Artery Disease (CAD) Teller Vessel Hyperlipidemia/Dyslipidemia Hypothyroidism NOS NIDDM [non-insulin dependent diabetes mellitus] Osteoarthritis Osteoporosis NOS Palpitations Renal Calculus Rosacea Shortness Of Breath (SOB) Historical No historical problems PROCEDURES/SURGICAL HISTORY Exercise stress echocardiography (01/04/2015), Colonoscopy (01/03/2009), HC COLONOSCOPY W BIOPSY - 07/06/02 (07/06/2002), C LAP,HERNIA REPAIR PROC,UNLIST - 03/22/01 (03/22/2001), REPAIR INCISIONAL HERNIA,REDUCIBLE - 06/14/98 - Incisional hernia repair w mesh (06/14/1998), Biopsy of breast (02/16/1986), Appendectomy (1959), section. SOCIAL HISTORY Date Time: 09/05/2015 12:22 Tobacco: Smoking Status: Never smoker Exposure: Care [...] SYSTEMS REVIEW As per HPI. VITAL SIGNS HR: 64 BP: 121 / 54 SpO2: 100% PHYSICAL EXAMINATION General: Alert and oriented. No acute distress. Neck: Supple. No lymphadenopathy. No carotid bruits. Cardiovascular exam: Regular rate and rhythm. Normal S1 and S2. 2/6 murmur. Lungs: Clear to auscultation bilaterally. Extremities: No pedal edema. LAB RESULTS -----CHEMISTRY----- Hgb A1c: 6.5 High 09/05/15 IMPRESSION/REPORT/PLAN 1. Diabetes Mellitus Type 2 A1c has come down under 7. Patient however is having to eat at times to keep her blood sugar up. For this reason we are going to reduce her glipizide to 2.5mg twice daily. We also discussed eating high protein and high fiber foods with meals to keep her blood sugar more stable and prevent these drops. She voices understanding. Ordered: OV Est Pt Level 3 - 05971 - 15 min 2. Pain Breast Patient's breast pain has been going on for years and is not changing. She was called back for diagnostic imaging of the left breast but ultimately it was nothing worrisome. I think we can continue with annual mammogram screening unless her pain is becoming more significant. Ordered: OV Est Pt Level 3 - 66665 - 15 min Electronically Signed By: NE VILLAR MD On: 09/06/2015 06:22 AM Source: [facility] Document Id: [id number] documented in this encounter Miscellaneous Notes Miscellaneous - Ne Cortez M.D. - 09/06/2015 6:24 AM CDT Results Notification Document Contains Addenda Addendum by MARIA C WILSON LPN on September 06, 2015 14:57:54 CDT talked with pt. and gave results. From: NE VILLAR MD To: [facility] Nurse Scotty; Sent: 09/06/2015 06:24:18 CDT Show up: 09/06/2015 06:24:00 CDT Subject: Results Notification Please let patient know that her A1c is 6.5%. We are going to decrease her glipizide to 2.5mg twicedaily. She said that we could leave a message. We will see her back in 6 months. Ne Cm Results: Date Result Name Ind Value Ref Range 09/05/2015 13:19 Hgb A1c (H) 6.5 % A1C ( - <=5.6) Source: [facility] POWERCHART Document Id: [id number] Miscellaneous - Ne Cortez M.D. - 09/05/2015 1:04 PM CDT Ambulatory Patient Summary [address] [place] [id number] Visit Information Name: ELIDAMARCIAL HARRIS [facility] Number: [id number] Current Date: 09/05/2015 13:04:30 Physicians Attending Provider: NE VILLAR MD Primary Care Provider: NE VILLAR MD MARCIAL BAZAN has been given the following list [...] the Following Medications: Medication list as of 09-05-15 13:04 Attention: If you have any medications at home that are not on this list, DO NOT take them until youcontact your provider for clarification. Give a copy of your medication list to your primary care provider. Update your medication list any time medications or doses are changed and carry your medication list at all times in case of emergency. Electronically Signed By: NE VILLAR MD Signed On:05-SEP-2015 13:04:19 Your Allergies & Intolerances Substance Reaction Symptoms [...] Stress Test Active Coronary Artery Disease (CAD) Teller Vessel Active Your Upcoming Appointments Date Time [...] if you dont have one. Go to [email or web address] and click on Create Your Account. Then, follow the directions to complete the online form. Youll be asked for your [facility] number which you can find at the top of this document. Your Goals/Additional instructions: Source: [facility] POWERCHART Document Id: [id number] Miscellaneous - Ne Cortez M.D. - 09/05/2015 1:04 PM CDT Ambulatory Discharge Medication List [address] [id number] Visit Information Name: ELIDAMARCIAL HARRIS [facility] Number: [id number] Visit Date: 09/05/2015 13:04:29 Attending Provider: NE VILLAR MD Primary Care Provider: NE VILLAR MD BENIMARCIALIEL has been given the following list of [...] the Following Medications: Medication list as of 09-05-15 13:04 Attention: If you have any medications at home that are not on this list, DO NOT take them until youcontact your provider for clarification. Give a copy of your medication list to your primary care provider. Update your medication list any time medications or doses are changed and carry your medication list at all times in case of emergency. Electronically Signed By: NE VILLAR MD Signed On:05-SEP-2015 13:04:19 Additional Information: Source: [facility] POWERCHART Document Id: [id number] Miscellaneous - Julio Milian, L.P.N. - 09/05/2015 12:22 PM CDT Adult Tow Picker Intake/History Adult Tow Picker Intake/History Entered On: 09/05/2015 12:30 CDT Performed On: 09/05/2015 12:22 CDT by JULIO MILIAN Intake Chief Complaint : Here for: Mammogram/US follow up. Discuss SB Ambulatory Intake Additional Information : Was worried about discrepancies in machines however, numbers don't look that different. Did have eye exam last week, cataracts. Peripheral Pulse Rate : 64 /min Systolic Blood Pressure : 121 mmHg Diastolic Blood Pressure : 54 mmHg NIBP Mean : 76 mmHg BP Location : Left upper extremity Blood Pressure Cuff Size : Large SpO2 : 100 % JULIO MILIAN - 09/05/2015 12:22 CDT General Info Information Given By : Patient Languages : Hungarian Is Patient Female and 13-50 no hysterectomy : No JULIO MILIAN - 09/05/2015 12:22 CDT Subjective Pain Symptoms : JULIO Rosario - 09/05/2015 12:22 CDT Dependent Habits Exposure to Tobacco Smoke : Care provider denies smoking in home, Other: never Smoking Status : Never smoker Tobacco 2A : No Tobacco Use/Currently Using : No Tobacco Use/Last 30 Days : No Tobacco Use/Last 12 months : No Alcohol Use : No JULIO MILIAN - 09/05/2015 12:22 CDT Caffeine Use Grid Caffeine Use : Past Type : Coffee Frequency : Occasionally Amount : 2 cup per week JULIO MILIAN - 09/05/2015 12:22 CDT Recreational Drug Use Grid Drug Use : None JULIO MILIAN - 09/05/2015 12:22 CDT Source: [facility] Document Id: [id number]!34 Miscellaneous - Sade Hogan R.N. - 08/21/2015 3:41 PM CDT diabetic supplies From: SADE HOGAN RN Sent: 08/21/2015 15:41:37 CDT Subject: diabetic supplies Submitted: Order:Rx Test Strips Supply Message Once E11.9 DMII, Prodigy, use 2x/day or as directed, 99mo Qty: 200 each Refills: 3 Substitutions Allowed Don't Print - called to pharmacy (Rx) Signed by SADE HOGAN RN Submitted: Order:Rx Lancets Supply Message Once E11.9 DMII, use twice a day or as directed, Prodada, 99mo Qty: 200 each Refills: 3 Substitutions Allowed Don't Print - called to pharmacy (Rx) Signed by SADE HOGAN RN Submitted: Order:Rx Diabetic Monitors Supply Message Once E11.9 DMII, Test 2x/day or as directed, Prodigbabatunde, 99mo Qty: 1 each Refills: 0 Substitutions Allowed Don't Print - called to pharmacy (Rx) Signed by SADE HOGAN RN Pt requested new meter, she will need meter and supplies called in per Andrew, they will let her know she is getting a new meter. Source: [facility] POWERCHART Document Id: [id number] documented in this encounter Plan of Treatment Not on filedocumented as of this encounter Procedures Procedure Name Priority Date/Time Associated Diagnosis Comme nts HEMOGLOBIN A1C, B Routine 09/05/2015 1:19 PM Res ults for this CDT procedure are i n the results section. documented in this encounter Results (ABNORMAL) Hemoglobin A1c (09/05/2015 1:19 PM CDT) P athologist Signature Hemoglobin A1c, 6.5 (H) <=5.6 A1C POWERCHART B Specimen (Source) Anatomical Collection Method Collection Time Re ceived Time Location / / Volume Laterality Blood 09/05/2015 1:19 PM CDT Ne Haas M.D. LAB BLOOD ADD-ON Performing Organization Address City/State/ZIP Code Phon e Number POWERCHART documented in this encounter Visit Diagnoses Not on filedocumented in this encounter Additional Health Concerns Assessment Noted Time PHQ-9 Depression Total Score: 7 06/21/2014 9:20 AM CD T documented as of this encounter
--- OUTSIDE RECORDS SUMMARY | 2021-09-05 08:00 | XMS_ITS | Encounter Summary ---
:1945 Author Organization [facility] Address [address] [place] [address] Care Team Providers Name Role Phone Unavailable Primary Care Provider Unavailable Reason for Referral Outpatient (Routine) - Closed Specialty Diagnoses / Procedures Referred By Contact Refer red To Contact Diagnoses Hyperlipidemia Erik Escamilla M.D. [address] [place] [id number] Referral ID Status Reason Start Date Expiration Date Visits Requ ested Visits Authorized [id number] Closed 11/28/2016 05/27/2017 1 1 Encounter Details Date Type Department Care Team Description 11/28/2016 Orders Only Department of Annamarie Escamilla; Cardiovascular Medicine Erik Jean-Baptiste M.D. Diabetes Mellitus Type 2 Without Complic ation (HCC) in [facility] [address] [place] [address] [address] [place] [phone] Social History Tobacco Use Types Packs/Day Years [...] Type Priority Associated Diagnoses Order S chedule Cardiovascular Disease Outpatient Routine Hyperlipidemia Exp ected: office visit (clinic) Referral 2017 (Approximate), Expires: 07/13/2022 documented as of this encounter Results (ABNORMAL) Lipid Panel (08/03/2017 9:11 AM CDT) athologist Signature Cholesterol, 258 (H) mg/dL 08/03/2017 [facility] Total 9:56 AM CDT [facility] Comment: ----REFERENCE VALUE---- Desirable: < 200 Borderline high: 200 - 239 High: > or = 240 Triglycerides 149 mg/dL 08/03/2017 9:56 AM CD T [facility] Comment: ----REFERENCE VALUE---- Normal: <150 Borderline high: 150-199 High: 200-499 Very high: > or =500 Cholesterol, HDL, S 62 >=50 mg/dL 08/03/2017 9:56 AM CDT [facility] Calculated LDL 166 (H) mg/dL 08/03/2017 9:56 AM CDT [facility] Comment: ----REFERENCE VALUE---- Desirable: <100 Above Desirable: 100-129 Borderline high: 130-159 High: 160-189 Very high: > or =190 Cholesterol, Non-HDL, 196 (H) mg/dL 08/03/2017 9:56 A M CDT [facility] Comment: ----REFERENCE VALUE---- Desirable: <130 Above Desirable: 130-159 Borderline high: 160-189 High: 190-219 Very high: > or =220 Specimen Anatomical Collection Method Collection Time Receive d Time (Source) Location / / Volume Laterality Blood 08/03/2017 9:11 08/03/2017 AM CDT 9:12 AM CDT Erik Hayes M.D. LAB BLOOD ADD-ON Performing Organization Address City/State/ZIP Code Phon e Number [facility] [id number] [address] [place] [facility] (ABNORMAL) BMP (Basic Metabolic Panel) (08/03/2017 9:11 AM CDT) athologist Signature Potassium, S 3.9 3.6 - 5.2 08/03/2017 [facility] mmol/L 9:56 AM T [facility] Sodium, S 143 135 - 145 08/03/2017 [facility] mmol/L 9:56 AM [facility] Chloride, S 106 98 - 107 08/03/2017 [facility] mmol/L 9:56 AM [facility] Bicarbonate, S 25 22 - 29 08/03/2017 [facility] mmol/L 9:56 AM [facility] Anion Gap 12 7 - 15 08/03/2017 [facility] 9:56 AM [facility] BUN (Blood 27 (H) 6 - 21 08/03/2017 [facility] Urea mg/dL 9:56 AM [facility] Nitrogen[facility] Creatinine, S 1.27 (H) 0.59 - 08/03/2017 [facility] 1.04 mg/dL 9:56 AM [facility] eGFR-Non 42 (L) >=60 08/03/2017 [facility] Black/ mL/min/BSA 9:56 AM [facility] Comment: ----ADDITIONAL INFORMATION---- Estimated GFR calculated using the 2009 CKD_EPI creatinine equation. eGFR-Black/ 49 (L) >=60 mL/min/BSA 08/03/2017 9:[address] [facility] [place] [facility] Comment: ----ADDITIONAL INFORMATION---- Estimated GFR calculated using the 2009 CKD_EPI creatinine equation. Calcium, Total, S 9.8 8.8 - 10.2 mg/dL 08/03/2017 9:56 AM CDT [facility] Glucose, S 140 70 - 140 mg/dL 08/03/2017 9:56 AM T [facility] Specimen Anatomical Collection Method Collection Time Receive d Time (Source) Location / / Volume Laterality Blood 08/03/2017 9:11 08/03/2017 AM CDT 9:12 AM CDT Erik Hayes M.D. LAB BLOOD ADD-ON Performing Organization Address City/State/ZIP Code Phon e Number [facility] [id number] [address] [place] [facility] documented in this encounter Visit Diagnoses Diagnosis Hyperlipidemia Diabetes Mellitus Type 2 Without Complic ation (HCC) documented in this encounter Additional Health Concerns Assessment Noted Time PHQ-9 Depression Total Score: 7 06/21/2014 9:20 AM CD T documented as of this encounter
--- OUTSIDE RECORDS SUMMARY | 2021-09-05 08:00 | XMS_ITS | Encounter Summary ---
:1945 Author Organization [facility] Address [address] [place] [address] Care Team Providers Name Role Phone Unavailable Primary Care Provider Unavailable Encounter Details Date Type Department Care Team Description 12/10/2015 Hospital Encounter H[facility] [address] [place] [phone] (Wo rk) Social History Tobacco Use [...] Sign Reading Time Taken Comments Blood Pressure 143/55 12/10/2015 10:01 AM CDT Pulse 63 12/10/2015 10:01 AM CDT Temperature - - Respiratory Rate 14 12/10/2015 10:01 AM CDT Oxygen Saturation - - Inhaled Oxygen Concentration - - Weight 85.7 kg (188 lb 15 oz) 12/10/2015 10:01 AM CDT Height 160.5 cm (5' 3.19) 12/10/2015 10:01 AM CDT Body Mass Index 33.27 12/10/2015 10:01 AM CDT documented in this encounter Medications [...] as needed. documented as of this encounter H&P Notes Ne Cortez M.D. - 12/10/2015 2:17 PM CDT Clinic Full Note CHIEF COMPLAINT/REASON FOR VISIT Pre op for cataract surgery in [place] Left eye 12/19/15, right eye 01/09/16 flu shot compare glucose reading with home meter HISTORY OF PRESENT ILLNESS Marcial presents for a preop exam prior to undergoing cataract surgery in [place] on 12/18 and 01/08. She has never had any problems with anesthesia, bleeding, or blood clots. Her blood sugar meterwas checked against ours today and there was a 59 point difference. She checks her blood sugars at home one time to many times per day. No other concerns. She had a stent placed in her heart last winter and denies any chest pain. She will have an occasional heart palpitation. MEDICATIONS aspirin 81 mg oral tablet, 81 mg, 1 tab(s), Take with food for heart health., PO, Daily, 0 refills atorvastatin 40 mg oral tablet, 40 mg, 1 tab(s), PO, Bedtime, 3 refills clindamycin 1% topical gel, 1 shauna, rosacea, Topical, 2xDay, 3 refills glipiZIDE 5 mg oral tablet, 2.5 mg, 0.5 tab(s), 30 minutes before breakfast, PO, 2xDay, [...] Anxiety disorder NOS Coronary Artery Disease (CAD) Habematolel Vessel Hyperlipidemia/Dyslipidemia Hypothyroidism NOS NIDDM [non-insulin dependent [...] breast (02/16/1986), Appendectomy (1959), section. SOCIAL HISTORY Patient has been to her for 51 years. They have 2 children and 5 grandchildren. Never smoker. No alcohol. She reports she does not do enough exercise but does like to walk, garden and quilt. SOCIAL HISTORY Date Time: 12/10/2015 10:01 Tobacco: Smoking Status: Never smoker Exposure: Care [...] mellitus Daughter:Positive: Diabetes mellitus; Migraine SYSTEMS REVIEW Constitutional: Patient denies fever, chills, sweats, fatigue, appetite change, temperature intolerance or weight change. Eyes: Patient denies double vision, blurred vision, pain or redness. ENT: Nasal drainage and congestion. Patient denies nosebleeds, sinus problems, sores on lips or mouth, sore throat or changes in voice. Respiratory: Patient denies cough, sputum production, shortness of breath, and wheezing. Skin: Patient denies any sores or rash. Cardiovascular System: Palpitations. Patient denies chest pain, history of heart murmur, DVT or PE. There is no edema. GI: Patient denies swallowing difficulties, heartburn, abdominal pain, nausea, vomiting, constipation, diarrhea, black or bloody stools or hemorrhoids. Genitourinary: Patient denies problems urinating or frequency. No abnormal vaginal bleeding or discharge. Musculoskeletal: Left shoulder pain. Patient denies any stiffness, or swelling. There is no significant back pain or neck pain. Neurologic: Patient denies any headaches, history of head injury, blacking out, or confusion. No seizures, difficulty with vision, speech, walking, or weakness in arm or leg. Endocrine: Diabetes. Patient denies changes in his hair, skin, excessive thirst, Urination. Mental Health: Anxiety. Patient denies depression, insomnia, or abuse. Lymphatic/Hematologic: Patient denies masses, swelling, or unusual bruising or bleeding. VITAL SIGNS T: 36.3 ??C (Core) HR: 63 RR: 14 BP: 143 / 55 SpO2: 99% HT: 160.5 cmWT: 85.7 kg BMI: 33.27 PHYSICAL EXAMINATION General: Alert and oriented. No acute distress. Head: Atraumatic. Normocephalic Eyes: Pupils equal, round, and reactive to light. Extraocular movements intact. Ears: Tympanic membranes clear with good light reflex. Nose: No nasal discharge. Mouth: Oral mucosa moist. No oral lesions. Throat: No oropharyngeal erythema. Neck: Supple. No lymphadenopathy. No carotid bruits. Cardiovascular exam: Regular rate and rhythm. Normal S1 and S2. No murmurs, rubs, or gallops. Lungs: Clear to auscultation bilaterally. Abdomen: Soft. Nontender. No masses, rebound, or guarding. Normoactive bowel sounds. Extremities: No pedal edema. 2+ dorsalis pedis pulses bilaterally. Neurologic: Cranial nerves 2-12 grossly intact. No focal deficits. Psychiatric: Mood is stable. IMPRESSION/REPORT/PLAN 1. Preoperative Exam NOS Patient has heart disease and is currently on Plavix until mid January. No history of lung problems. Sleep apnea score is 8 which puts her in the low risk category. Medications were reviewed and patient was advised to not take her diabetes meds or lisinopril the morning of the procedure. She wasadvised to continue the Plavix. Patient is deemed medically optimized for this procedure. Ordered: OV Est Pt Level 4 - 70696 - 25 min 2. DM2 Meter is running a little high compared to ours. Discussed with patient that when she checks her blood sugar, she can subtract around 50 points to determine what her sugar really is. We are going tocontinue the same meds at this time. 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 By seeing your primary care team for regular checkups and labs, we can be sure you will get the care you need when youneed it. Therefore, our records indicate that you are due for: Lab appointment and Nurse only blood pressure check Please call our appointment desk at to schedule an appointment. Your health is important to us. We look forward to providing you with the right care at the right time. If you have transferred your care elsewhere please let us know and we will remove you from our call/mailing list for appointment reminders. Your Health Care Team Sincerely, BELEN LOVELACE Electronic Signature Electronically Signed By: BELEN LOVELACE On: March 06, 2016 This document has images extracted. [facility] Document Id: [id number] Miscellaneous - Cliff Rodriguez R.N. - 02/26/2016 3:34 PM CST *General Message From: CLIFF RODRIGUEZ RN ([place] Colonoscopy Pool) To: [place] Colonoscopy Pool; Sent: 02/26/2016 15:34:45 MACHINE SHOP APPRENTICE Subject: *General Message Due Date/Time: 01/03/2019 15:34:00 MACHINE SHOP APPRENTICE due 01/03/2019 Source: [facility] Document Id: [id number] Dio - Octavia Diaz - 12/13/2015 8:14 AM CDT CAROLE Nystatin/triamcinolone Document Contains Addenda Addendum by OCTAVIA DIAZ on December 19, 2015 08:13:55 CDT From: OCTAVIA DIAZ To: NE VILLAR MD; Sent: 12/19/2015 08:13:55 CDT Subject: RE: CAROLE Liatin/triamcinolone noted Addendum by NE VILLAR MD on December 18, 2015 22:20:55 CDT From: NE VILLAR MD To: OCTAVIA DIAZ; Sent: 12/18/2015 22:20:55 CDT Subject: RE: CAROLE Nystatin/triamcinolone 2 scripts sent to [facility]. From: OCTAVIA DIAZ To: NE VILLAR MD; Sent: 12/13/2015 08:14:02 CDT Subject: CAROLE Nystatin/triamcinolone Would it be ok for patient to us the formulary alternative that is nystatin crean and triamcinolone cream as separate agents?? If so could you send a new prescription for her. If not can you give me a statement as to why it wouldn't be effective so I can send that to insurance. Thanks. Source: [facility] POWERCHART Document Id: [id number] Electronically signed by Conversion, [facility] Contact Lens Curve Grinder [phone] at 07/13/2016 11:08 AM CDT Miscellaneous - Ne Cortez M.D. - 12/10/2015 11:05 AM CDT Ambulatory Patient Summary [address] [phone] Visit Information Name: MARCIAL BAZAN [facility] Number: [id number] Current Date: 12/10/2015 11:05:02 Physicians Attending Provider: NE VILLAR MD Primary Care Provider: NE VILLAR MD BENIJOSE MIGUELPATRIKC MAI has been given the following list of [...] shauna, Topical, two times a day rosacea clobetasol topical (clobetasol 0.05% topical solution) 1 shauna, Topical, two times a day as needed forRash New Routed to [address] [address] clopidogrel (Plavix 75 mg oral tablet) 1 Tablet(s), Oral, once a day heart stop date 01/27/2016 glipiZIDE (glipiZIDE 5 mg oral tablet) 0.5 Tablet(s), Oral, two times a day 30 minutes before breakfast levothyroxine (levothyroxine 75 mcg (0.075 mg) oral tablet) 1 Tablet(s), Oral, once a day for thyroid replacement metFORMIN (metFORMIN 500 mg oral tablet, extended release) 2 Tablet(s), Oral, once a day with evening meal metoprolol (metoprolol succinate 25 mg oral tablet, extended release) 0.5 Tablet(s), Oral, once a day nystatin-triamcinolone topical (nystatin-triamcinolone 100,000 units/g-0.1% topical ointment) 1 shauna,Topical, three times a day as needed for Rash New Routed to [address] [address] Stop Taking the Following Medications: Medication list as of 12-10-15 11:05 Attention: If you have any medications at [...] Electronically Signed By: NE VILLAR MD Signed On:10-DEC-2015 11:00:45 Your Allergies & Intolerances Substance Reaction Symptoms Category Comments azithromycin Drug Benicar Drug Your Problem List Problem Status Onset Comments NIDDM [non-insulin dependent diabetes mellitus] Active 06/05/2007 Hyperlipidemia/Dyslipidemia Active 2004 Osteoarthritis Active 01/07/11 date of onset unknown Osteoporosis NOS Active 01/07/11 date of onset unknown; 04/30/12 osteopenia noted on bone density scan on 04/28/12. Rosacea Active 2006 TIA [Transient ischemic attack] Active 06/05/2007 12/10/15 uncertain diagnosis Anxiety disorder NOS Active 06/05/1987 Renal Calculus [...] Stress Test Active Coronary Artery Disease (CAD) Habematolel Vessel Active Your Upcoming Appointments Date Time [...] if you dont have one. Go to [email or web address] and click on Create Your Account. Then, follow the directions to complete the online form. Youll be asked for your [facility] number which you can find at the top of this document. Your Goals/Additional instructions: Source: [facility] POWERCHART Document Id: [id number] Miscellaneous - Ne Cortez M.D. - 12/10/2015 11:05 AM CDT Ambulatory Discharge Medication List [address] [place], [place] [phone] Visit Information Name: MARCIAL BAZAN [facility] Number: [id number] Current Date: 12/10/2015 11:05:00 Attending Provider: NE VILLAR MD Primary Care [...] shauna, Topical, two times a day rosacea clobetasol topical (clobetasol 0.05% topical solution) 1 shauna, Topical, two times [facility] [place] [id number] clopidogrel (Plavix 75 mg oral tablet) 1 Tablet(s), Oral, once a day heart stop date 01/27/2016 glipiZIDE (glipiZIDE 5 mg oral tablet) 0.5 Tablet(s), Oral, two times a day 30 minutes before breakfast levothyroxine (levothyroxine 75 mcg (0.075 mg) oral tablet) 1 Tablet(s), Oral, once a day for thyroid replacement metFORMIN (metFORMIN 500 mg oral tablet, extended release) 2 Tablet(s), Oral, once a day with evening meal metoprolol (metoprolol succinate 25 mg oral tablet, extended release) 0.5 Tablet(s), Oral, once a day nystatin-triamcinolone topical (nystatin-triamcinolone 100,000 units/g-0.1% topical ointment) 1 shauna,Topical, three times a day as needed for Rash New Routed to [address] [address] Stop Taking the Following Medications: Medication list as of 12-10-15 11:05 Attention: If you have any medications at [...] Electronically Signed By: NE VILLAR MD Signed On:10-DEC-2015 11:00:45 Additional Information: Source: [facility] Exit41CHART Document Id: [id number] Dio - Azra Estrada, L.P.N. - 12/10/2015 10:26 AM CDT *General Message From: AZRA ESTRADA LPN ([place] [facility] Nurse Scotty) To: NE VILLAR MD; Sent: 12/10/2015 10:26:36 CDT Subject: *General Message Patient requested that we compare her glucose meter to our clinic meter because she is thinking thather meter is reading high (it is a new meter). Checked patient's glucose, clinic meter result is 172and patient's result was 233. Patient is requesting an order for a new glucometer be sent to pharmacy. Source: [facility] POWERCHART Document Id: [id number] Electronically signed by [facility] Contact L[employer] Curve Grinder [phone] at 07/13/2016 11:08 AM CDT Dio - Azra Estrada, L.P.N. - 12/10/2015 10:06 AM CDT Obstructive Sleep Apnea Obstructive Sleep Apnea Entered On: 12/10/2015 10:07 CDT Performed On: 12/10/2015 10:06 CDT by AZRA ESTRADA LPN JUAN Screening Known Obstructive Sleep Apnea : No - NOT diagnosed with JUAN JUAN Score : No qualifying data available. JUAN Results : No qualifying data available. AZRA ESTRADA LPN - 12/10/2015 10:06 CDT JUAN Assessment Do you have high blood pressure or have you been told to take medication for high blood pressure? : Yes Frequency of Snoring HTN : Sometimes (1-2 times per month) Frequency of Gasping, Choking, Snorting HTN : Never Total Number of Historical Features HTN : 0 Neck Circumference - JUAN - HTN : 40/41 Total Sleep Apnea Clinical Score HTN Calc : 8 AZRA ESTRADA LPN - 12/10/2015 10:06 CDT Source: [employer] Document Id: [id number] CDT!12 Miscellaneous - Azra Estrada L.P.N. - 12/10/2015 10:01 AM CDT Adult Zigzagger Intake/History Adult Zigzagger Intake/History Entered On: 12/10/2015 10:05 CDT Performed On: 12/10/2015 10:01 CDT by AZRA ESTRADA LPN Intake Chief Complaint : Pre op for cataract surgery in [place] Left eye 12/19/15, right eye 01/09/16 flu shot compare glucose reading with home meter Temperature Core : 36.3 DegC(Converted to: 97.3 DegF) (LOW) Peripheral Pulse Rate : 63 /min Respiratory Rate : 14 /min Heart Rhythm : Regular Systolic Blood Pressure : 143 mmHg (HI) Diastolic Blood Pressure : 55 mmHg NIBP Mean : 84 mmHg BP Location : Left upper extremity Blood Pressure Cuff Size : Large SpO2 : 99 % Oxygen Therapy : Room air Height : 160.5 cm(Converted to: 5 ft 3 inch(es), 63 inch(es)) Actual Weight : 85.7 kg(Converted to: 188 lb 15 oz) Weight Source : Standing scale Dosing Weight Clinic : 85.7 kg Clinic BSA : 1.95 Body Mass Index : 33.27 kg/m2 Neck Circumference : 41.5 cm(Converted to: 16 inch(es)) AZRA ESTRADA LPN - 12/10/2015 10:01 CDT General Info Information Given By : Patient Languages : East Timorese Is Patient Female and 13-50 no hysterectomy : No AZRA ESTRADA LPN - 12/10/2015 10:01 CDT Subjective Pain Symptoms : No AZRA ESTRADA LPN - 12/10/2015 10:01 CDT Dependent Habits Exposure to Tobacco Smoke : Care provider denies smoking in home, Other: never Smoking Status : Never smoker Tobacco 2A : No Tobacco Use/Currently Using : No Tobacco Use/Last 30 Days : No Tobacco Use/Last 12 months : No Alcohol Use : No AZRA ESTRADA LPN - 12/10/2015 10:01 CDT Caffeine Use Grid Caffeine Use : Past Type : Coffee Frequency : Occasionally Amount : 2 cup per week AZRA ESTRADA LPN - 12/10/2015 10:01 CDT Recreational Drug Use Grid Drug Use : None AZRA ESTRADA LPN - 12/10/2015 10:01 CDT Source: [employer] Document Id: [id number] CDT!44 Miscellaneous - Azra Estrada, L.P.N. - 12/10/2015 9:58 AM CDT Health Assessment Health Assessment Entered On: 12/10/2015 9:59 CDT Performed On: 12/10/2015 9:58 CDT by AZRA ESTRADA LPN Health Assessment Complete Health Assessment Complete or Modified : Annual Health Assessment Annual Health Assessment Completed : Yes AZRA ESTRADA LPN - 12/10/2015 9:58 CDT Nutrition Nutrition Risk Factors by History Adult : None AZRA ESTRADA LPN - 12/10/2015 9:58 CDT Functional Current Daily Living Assistance : None AZRA ESTRADA LPN - 12/10/2015 9:58 CDT Dependent Habits Exposure to Tobacco Smoke : Care provider denies smoking in home, Other: never Smoking Status : Never smoker Tobacco 2A : No Tobacco Use/Currently Using : No Tobacco Use/Last 30 Days : No Tobacco Use/Last 12 months : No Alcohol Use : No AZRA ESTRADA [facility] - 12/10/2015 9:58 CDT Caffeine Use Grid Caffeine Use : Past Type : Coffee Frequency : Occasionally Amount : 2 cup per week AZRA ESTRADA [facility] - 12/10/2015 9:58 CDT Recreational Drug Use Grid Drug Use : None AZRA ESTRADA [facility] - 12/10/2015 9:58 CDT Psychosocial Domestic Abuse Concerns : None Behavioral Health Screen/Safety Assmt : No Adventism Preference : Spencer AZRA ESTRADA [facility] - 12/10/2015 9:58 CDT Advance Directive Advanced Directives : No Advance Directive Additional Information : No AZRA ESTRADA [facility] - 12/10/2015 9:58 CDT Educ Needs Learning Style Preference Adult Grid Patient : Demonstration, Printed materials, Verbal explanation, Video/Educational TV Family : None AZRA ESTRADA [facility] - 12/10/2015 9:58 CDT Source: [facility] Exit[employer]CHART Document Id: [id number] CDT!36 documented in this encounter Plan of Treatment Not on filedocumented as of this encounter Procedures Procedure Name Priority Date/Time Associated Diagnosis Comme nts GLUCOSE POCT, B Routine 12/10/2015 10:12 AM Resul ts for this CDT procedure are i n the results section. documented in this encounter Results (ABNORMAL) Glucose, POCT (12/10/2015 10:12 AM CDT) athologist Signature Glucose, POCT, 172 (H) 70 - 140 POWERCHART B MGDL Comment: Analyzed By [id number] Barber Oquendo Performed at [facility] [address] [place], [place] [address] Specimen Anatomical Collection Method Collection Time Receive d Time (Source) Location / / Volume Laterality Blood 12/10/2015 10:12 12/10/2015 AM CDT 10:12 AM CDT Ne Haas M.D. LAB POCT ORDERABLES-GARIBALDI UAL Performing Organization Address City/State/ZIP Code Phon e Number POWERCHART documented in this encounter Visit Diagnoses Not on filedocumented in this encounter Additional Health Concerns Assessment Noted Time PHQ-9 Depression Total Score: 7 06/21/2014 9:20 AM CD T documented as of this encounter
--- OUTSIDE RECORDS SUMMARY | 2021-09-05 08:00 | XMS_ITS | Encounter Summary ---
:1945 Author Organization [facility] Address [address] [place] [address] Care Team Providers Name Role Phone Unavailable Primary Care Provider Unavailable Encounter Details Date Type Department Care Team Description 07/27/2015 Hospital Encounter HX [facility] Gail Ge M.D. [address] [phone] (Wo rk) Social History Tobacco Use [...] as needed. documented as of this encounter Miscellaneous Notes Miscellaneous - Conversion, Historical Provider Ser - 07/27/2015 11:59 PM CDT Coding Summary-Paper Based CODING DATE: 07/30/[address] [facility] STATUS: * Discharged to Home or Self Care PAYOR: Medicare ADMIT DX: REASON FOR VISIT DX: FINAL DX: PRINCIPAL: Z12.31 Encounter for screening mammogram for malignant neoplasm of breast SECONDARY: R92.8 Other abnormal and inconclusive findings on diagnostic imaging of breast PROCEDURES DOCTOR NAME DATE NOTE: The code number assigned matches the documented diagnosis and / or procedure in the patient's chart. However, the narrative phrase printed from the coding software may appear abbreviated, or result in slightly different terminology. Coded By: GUERITA CHAN Date Saved: 07/30/2015 10:50 am Source: [employer] Document Id: [id number] documented in this encounter Plan of Treatment Not on filedocumented as of this encounter Visit Diagnoses Not on filedocumented in this encounter Additional Health Concerns Assessment Noted Time PHQ-9 Depression Total Score: 7 06/21/2014 9:20 AM CD T documented as of this encounter
--- OUTSIDE RECORDS SUMMARY | 2021-09-05 08:00 | XMS_ITS | Encounter Summary ---
:1945 Author Organization [facility] Address [address] [place] [address] Care Team Providers Name Role Phone Unavailable Primary Care Provider Unavailable Encounter Details Date Type Department Care Team Description 09/02/2016 Hospital Encounter HX [facility] Mohan Germain M.D., Ph.D. [address] [place], [place] [phone] (Wo rk) Social History [...] times a day as needed for pain. metFORMIN XR Take 2 tablets by 0 01/09/201604/26 (for_GLUCOPHAGE-XR) 500 mg mouth daily with 24 hr tablet dinner. nitroglycerin (NITROSTAT) Place under the 0 01/2607/29/2018 0.4 mg SL tablet tongue as needed. documented as of this encounter Miscellaneous Notes Miscellaneous - Conversion, Historical Provider Ser - 09/02/2016 11:59 PM CDT Coding Summary-Paper Based CODING DATE: 09/08/[address] [facility] STATUS: * Discharged to Home or Self Care PAYOR: Medicare ADMIT DX: REASON FOR VISIT DX: FINAL DX: PRINCIPAL: R42 Dizziness and giddiness SECONDARY: I25.10 Atherosclerotic heart disease of [place] coronary artery without angina pectoris R06.02 Shortness of breath PROCEDURES DOCTOR NAME DATE NOTE: The code number assigned matches the documented diagnosis and / or procedure in the patient's chart. However, the narrative phrase printed from the coding software may appear abbreviated, or result in slightly different terminology. Coded By: SERGIO COTTO Date Saved: 09/08/2016 06:04 pm [facility] Document Id: [id number] documented in this encounter Plan of Treatment Not on filedocumented as of this encounter Visit Diagnoses Not on filedocumented in this encounter Additional Health Concerns Assessment Noted Time PHQ-9 Depression Total Score: 7 06/21/2014 9:20 AM CD T documented as of this encounter
--- OUTSIDE RECORDS SUMMARY | 2021-09-05 08:00 | XMS_ITS | Encounter Summary ---
:[address] [facility] Address [address] [place] [address] Care Team Providers Name Role Phone Unavailable Primary Care Provider Unavailable Encounter Details Date Type Department Care Team Description 09/01/2016 Hospital Encounter [facility] C[facility] Mahesh Bates M.D., Ph.D. [address] [place] [address] (Wo rk) Social History Tobacco Use Types [...] Sign Reading Time Taken Comments Blood Pressure 132/72 09/01/2016 11:04 AM CDT Pulse - - Temperature - - Respiratory Rate - - Oxygen Saturation - - Inhaled Oxygen Concentration - - Weight 84.4 kg (186 lb 1.1 oz) 09/01/2016 11:04 AM CDT Height 158 cm (5' 2.21) 09/01/2016 11:04 AM CDT Body Mass Index 33.81 09/01/2016 11:04 AM CDT documented in this encounter Medications [...] documented as of this encounter H&P Notes Mohan Bates M.D., Ph.D. - 09/01/2016 10:56 AM CDT [facility] REFERRAL SOURCE Suresh Patel. I have met with Mrs. Adams for a consultation regarding episodes of lightheadedness. I have reviewed the documentation kindly provided by Suresh Patel. I have reviewed also the available blood work and the available data in the electronic medical record. Mrs. Adams is a 71-year-old patient who has a history of coronary artery disease status post stenting of the LAD. She was actually seen by my colleague, Dr. Amato in June 2016. At that time she forgot to discuss the lightheadedness spells she experiences now. She went on and discussed this with Suresh Patel. She mentions that almost every other day she has spells where we she would feel alittle unsteady. She does not have vertigo, being quite specific about this. The triggering factors are variable, sometimes just looking down, sometimes just while she is standing all of a sudden shefeels the need to steady herself. She never had passing out spells. She did check the blood pressure and heart rhythm on several occasions with these spells. Whenever she gets to do that, the systolic values are in the 130s and the heart rates she thinks are in the 80s or so. She does not recall having had low heart rates or her low blood pressure. The patient had no evidence of structural heart abnormalities on the stress echo from 2014. The stress test portion was also negative at that stage, but subsequently she did undergo coronary revascularization. Had multiple Holter recordings in the past, the most recent one in January 2015. She hadsome runs of AIVR. I am noting that just after that she underwent stenting of the LAD. When discussing further with Mrs. Adams she tells me that she also has fatigue and she sleeps poorlyat night. Suresh considered screening for sleep apnea. She also considered Neurology evaluation forher symptoms. The patient also describes frequent nightmares. It was felt that perhaps her very low LDL levels could be contributing to that and she was taken off atorvastatin. She had some night terrors still. PAST MEDICAL/SURGICAL HISTORY 1. Coronary artery disease, status post stenting 2014. 2. Diabetes mellitus type 2. 3. Hypertension. SOCIAL HISTORY Nonsmoker. No alcohol abuse. FAMILY HISTORY Noncontributory. SYSTEMS REVIEW Per HPI. Further negative. PHYSICAL EXAMINATION GENERAL: Alert, no apparent distress. HEENT: Head: Normal exam. Eyes: There is horizontal nystagmus in both to left and right gaze. NEUROLOGIC: No gross deficit noted. Nystagmus as mentioned above. CARDIAC: Regular rate and rhythm. Flow murmur over the aortic valve. Otherwise no murmurs or gallops. EXTREMITIES: No ankle edema. IMPRESSION/REPORT/PLAN 1. Lightheadedness spells, indeterminate mechanism. 2. Poor quality of sleep, query mechanism. 3. Nystagmus and diplopia with right gaze, question of significance. Mrs. Adams presents with lightheadedness spells which are her main concern. The fact that they occur when she changes position of the head or she looks down argues against a cardiac mechanism. She does not have major focal deficits, but she noted she has diplopia when I had her do right gaze. She has horizontal nystagmus. I wonder if this is not merely a mediated phenomenon. Of course, with diabetes she may have a certain degree of autonomic dysfunction, but she recorded normal blood pressures and heart rates after the spells. In the past patient did have a several Holter recordings. On the one in 2014 she had an episode of accelerated idioventricular rhythm. However she had been revascularized after that. My recommendation is to proceed with a formal Neurology consultation. I think it would be reasonable to perform a 24-hour Holter and a screening overnight oximetry for sleep apnea. If the initial evaluation is negative, one could consider testing her for autonomic dysfunction, but again my impression is that this is less likely to be a cardiovascular mediated process. Finally in terms of her nightmares and statins, I told her to wait a whole 1 month off statin to seeif the night terrors completely resolve. If she continues to have those she should probably go backto a statin given her diabetes and coronary disease. Mohan Bates M.D./gene Electronically Signed By: MOHAN BATES MD On: 09/22/2016 04:01 PM Source: [facility] MHSDOLBEYNONRADSYS Document Id: [id number] documented in this encounter Nursing Notes Andrea Malhotra R.N. - 09/11/2016 1:54 PM CDT cardiology Copy of overnight oximetry and holter monitor were given to Kenia jurado [facility] to be sent to [facility] in [place]. Electronically Signed By: ANDREA MALHOTRA RN On: 09/11/2016 01:55 PM Modified by and Electronically Signed by: ANDREA MALHOTRA RN On: 09/11/2016 01:55 PM Source: [facility] [employer] Document Id: [id number] Andrea Malhotra R.N. - 09/02/2016 9:52 AM CDT cardiology notes Copy of Dr. Bates's cardiology note of yesterday was given to Kenia in [facility] to be sent to Suresh Patel at [facility]. Electronically Signed By: ANDREA MALHOTRA RN On: 09/02/2016 09:53 AM Modified by and Electronically Signed by: ANDREA MALHOTRA RN On: 09/02/2016 09:53 AM Source: [employer] Document Id: [id number] documented in this encounter Miscellaneous Notes Miscellaneous - Andrea Malhotra R.N. - 09/11/2016 1:52 PM CDT *General Message From: ANDREA MALHOTRA RN To: ANDREA MALHOTRA RN; Sent: 09/11/2016 13:52:21 CDT Subject: *General Message Lázaro Bates, the overnight oximetry and holter monitor are available for you to review on Marcial Adams. Toi - Angie Source: [employer] Document Id: [id number] Electronically signed by Conversion, [facility] It Infrastructure Architect [id number] at 09/17/2016 12:34 AM CDT Miscellaneous - Andrea Malhotra R.N. - 09/02/2016 10:00 AM CDT *General Message From: ANDREA MALHOTRA RN To: OCTAVIA BERGERON; Sent: 09/02/2016 10:00:46 CDT Subject: *General Message Dr. Ten Portillo ordered an overnight oximetry for Marcial. Toi Adams Source: [employer] Document Id: [id number] Electronically signed by Conversion, [facility] It Infrastructure Architect [id number] at 09/03/2016 7:04 AM CDT Miscellaneous - Andrea Malhotra R.N. - 09/01/2016 11:04 AM CDT Adult Service Order Expediter Intake/History Adult Service Order Expediter Intake/History Entered On: 09/01/2016 11:08 CDT Performed On: 09/01/2016 11:04 CDT by ANDREA MALHOTRA RN Intake Chief Complaint : Here for follow-up Onset of Symptoms : Problems with lightheadedness and dizziness. Problems with balance. No chestpain, SOB or edema. Shoulder pain - wondering if is cardiac Apical Heart Rate : 80 /min Heart Rhythm : Regular Systolic Blood Pressure : 132 mmHg Diastolic Blood Pressure : 72 mmHg NIBP Mean : 92 mmHg BP Location : Left upper extremity Blood Pressure Cuff Size : Regular SpO2 : 99 % Oxygen Therapy : Room air Height : 158 cm(Converted to: 5 ft 2 inch(es), 62 inch(es)) Actual Weight : 84.4 kg(Converted to: 186 lb 1 oz) Weight Source : Standing scale Dosing Weight Clinic : 84.4 kg Clinic BSA : 1.92 Body Mass Index : 33.81 kg/m2 ANDREA MALHOTRA RN - 09/01/2016 11:04 CDT General Info Information Given By : Patient Preferred Communication Mode : Verbal Languages : New Zealander Is Patient Female and 13-50 no hysterectomy : No ANDREA MALHOTRA RN - 09/01/2016 11:04 CDT Subjective Pain Symptoms : No ANDREA MALHOTRA RN - 09/01/2016 11:04 CDT Dependent Habits Exposure to Tobacco Smoke : Care provider denies smoking in home, Other: never Smoking Status : Never smoker Tobacco 2A : No Tobacco Use/Currently Using : No Tobacco Use/Last 30 Days : No Tobacco Use/Last 12 months : No Alcohol Use : No ANDREA MALHOTRA RN - 09/01/2016 11:04 CDT Caffeine Use Grid Caffeine Use : Past Type : Coffee Frequency : Occasionally Amount : 2 cup per week ANDREA MALHOTRA RN - 09/01/2016 11:04 CDT Recreational Drug Use Grid Drug Use : None ANDREA MALHOTRA RN - 09/01/2016 11:04 CDT Source: [employer] Document Id: [id number] CDT!43 documented in this encounter Plan of Treatment Not on filedocumented as of this encounter Visit Diagnoses Not on filedocumented in this encounter Additional Health Concerns Assessment Noted Time PHQ-9 Depression Total Score: 7 06/21/2014 9:20 AM CD T documented as of this encounter
--- OUTSIDE RECORDS SUMMARY | 2021-09-05 08:00 | XMS_ITS | Encounter Summary ---
:1945 Author Organization [facility] Address [address] [place] [address] Care Team Providers Name Role Phone Unavailable Primary Care Provider Unavailable Encounter Details Date Type Department Care Team Description 07/07/2016 Hospital Encounter [facility] CARDIOLOG Erik Macario M.D. [address] [place], [place] [address] (Wo rk) Social History Tobacco Use Types [...] Sign Reading Time Taken Comments Blood Pressure 138/82 07/07/2016 2:12 PM CDT Pulse 78 07/07/2016 1:39 PM CDT Temperature - - Respiratory Rate - - Oxygen Saturation - - Inhaled Oxygen Concentration - - Weight 84.6 kg (186 lb 8.2 oz) 07/07/2016 1:39 PM CDT Height 154 cm (5' 0.63) 07/07/2016 2:12 PM CDT Body Mass Index 35.67 07/07/2016 1:39 PM CDT documented in this encounter Medications at [...] as needed. documented as of this encounter Consult Notes Erik Amato M.D. - 07/07/2016 1:29 PM CDT [facility] REFERRAL S[facility] Adriane Patel APRN, CAN STRIPER, [facility] CHIEF COMPLAINT/REASON FOR VISIT Follow up on chronic ischemic cardiomyopathy. HISTORY OF PRESENT ILLNESS I had the pleasure of meeting today with Ms. Adams. She is a delightful 71-year-old female who was most recently seen here in our Cardiology practice by Dr. Haile in 2016. She has a past medical history mostly pertinent for type 2 diabetes, medically complicated obesity, hypothyroidism, hyperlipidemia, and noted in January 2015 history of coronary artery disease that presented in a rather atypical way, mostly with shoulder discomfort as well as shortness of breath with an initially negative stress test, but low workload, which continued to raise suspicion for a potential coronary etiology. 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 The best part is that she had essentially resolution of those index symptoms and has done well since then with optimal medical therapy. She denies any exertional angina, orthopnea, or dyspnea on exertion. She has had no syncope or presyncope, no palpitations. In terms of regular physical activity, she thinks that this is the part that she needs to work on harder and wishes to pursue this perhaps with a friend. No problems with her current medications. PAST MEDICAL/SURGICAL HISTORY As indicated in the history of present illness. SYSTEMS REVIEW A 10-point review of systems performed and negative except as indicated in the history of present illness. PHYSICAL EXAMINATION VITAL SIGNS: Blood pressure of 120/70, pulse of 78 and regular. GENERAL: Delightful middle aged female who appears well. She is obese, but in no acute distress. HEAD, EYES, EARS, NOSE, AND THROAT: Unremarkable. NECK: Supple. No jugular venous distension. HEART: She has a normal S1 and S2. No clinically significant murmurs. LUNGS: Clear. DIAGNOSTICS The most recent laboratory values obtained from [facility] dated June 26, 2016, are her uric acid which is elevated at 7.6, and a C-reactive protein which was elevated at 12. The reason forthat elevation is a recent episode of gout that has been appropriately treated. Her ESR was also elevated at 64. I did review 12-lead ECG from our colleagues at [facility], which shows normal sinus rhythm, no evidence of ischemic changes at rest. The date was December 2015. IMPRESSION/REPORT/PLAN 1. Chronic stable coronary artery disease status post drug-eluting stent to the mid left anterior descending in 2014, on optimal medical therapy. 2. Medically complicated obesity with a body mass index over 30. 3. Type 2 diabetes, at goal. 4. Hyperlipidemia, at goal. 5. Recent episode of gout, on medical therapy. 6. Fairly sedentary lifestyle. Overall Mrs. Adams is doing well from a cardiovascular perspective. She denies any angina or congestive symptoms that warrant any additional investigation. I did review the results of her LDL cholesterol, which had been noted to be around 38, and the reason actually to obtain a lipid panel was basedon the fact that the level may be too low and to see if the dose needed to be decreased, but the truth is that for this patient based on her coronary disease, residual risk, as well as age, high intensity statin such as 40 mg of atorvastatin which she is receiving is the guideline-directed medical therapy. Those cholesterol levels appear to be safe and do not portent any adverse prognostic signal,at least with the science that we have so far, particularly in terms of cognitive function. Therefore, I would advocate to continue to use the same dose of statin. She is on a beta rich and also appropriate treatment for her diabetes. We spoke at length about therapeutic lifestyle changes and the importance of those to maintain cardiovascular health and reduce secondary events. She voices understanding, wishes to pursue structured walking program with a friend. I provided Mrs. Adams with a business card and our contact information if anything is needed in the interim, but she is doing so well that we would be delighted to see her in 1 year with repeat restingelectrocardiogram, lipids and basic metabolic panel. This is a level 3 visit, 40 minutes with the patient. Erik Amato M.D./gene Electronically Signed By: ERIK GAN MD On: 08/03/2016 02:58 PM Source: [facility]SDOLBEYNONRADSYS Document Id: [id number] documented in this encounter Miscellaneous Notes Miscellaneous - Annie Jones, R.N. - 07/07/2016 1:39 PM CDT Adult Bulk Sugar Handler Intake/History Document Has Been Updated Adult Bulk Sugar Handler Intake/History Entered On: 07/07/2016 13:43 CDT Performed On: 07/07/2016 13:39 CDT by ANNIE JONES motor overhauler Peripheral Pulse Rate : 78 /min Heart Rhythm : Regular Systolic Blood Pressure : 120 mmHg Diastolic Blood Pressure : 70 mmHg NIBP Mean : 87 mmHg Height : 154 cm(Converted to: 5 ft 1 inch(es), 61 inch(es)) Actual Weight : 84.6 kg(Converted to: 186 lb 8 oz) Dosing Weight Clinic : 84.6 kg Clinic BSA : 1.9 Body Mass Index : 35.67 kg/m2 ANNIE JONES RN - 07/07/2016 13:39 CDT General Info Information Given By : Patient Languages : Slovenian Is Patient Female and 13-50 no hysterectomy : No ANNIE JONES RN - 07/07/2016 13:39 CDT Subjective Pain Symptoms : No ANNIE JONES RN - 07/07/2016 13:39 CDT Dependent Habits Exposure to Tobacco Smoke : Care provider denies smoking in home, Other: never Smoking Status : Never smoker Tobacco 2A : No Tobacco Use/Currently Using : No Tobacco Use/Last 30 Days : No Tobacco Use/Last 12 months : No ANNIE JONES RN - 07/07/2016 13:39 CDT Caffeine Use Grid Caffeine Use : Past Type : Coffee Frequency : Occasionally Amount : 2 cup per week ANNIE JONES RN - 07/07/2016 13:39 CDT Recreational Drug Use Grid Drug Use : None ANNIE JONES RN - 07/07/2016 13:39 CDT Allergy (As Of: 07/07/2016 13:43:06 CDT) Allergies (Active) azithromycin Estimated Onset Date: Unspecified ; Created By: PETRA RUSSELL LPN; Reaction Status: Active ; Category: Drug ; Substance: azithromycin ; Type: Allergy ; Updated By: PETRA RUSSELL LPN; Reviewed Date: 12/10/2015 9:57 CDT Benicar Estimated Onset Date: Unspecified ; Created By: PETRA RUSSELL LPN; Reaction Status: Active ; Category: Drug ; Substance: Benicar ; Type: Allergy ; Updated By: PETRA RUSSELL LPN; Reviewed Date: 12/10/2015 9:57 CDT Exercise Vitals Days/Wk of Moderate or Greater Exercise : 0 ANNIE JONES RN - 07/07/2016 13:39 CDT Diabetes Intake Do You Have Diabetes : Yes How long have you had diabetes? : More than one year Do you take pills for your diabetes? : Yes Do you check your own blood sugars? : Yes Blood Sugar High : 200 Blood Sugar Low : 130 Have you had low sugar spells? : No (Comment: in the past [ANNIE JONES RN - 07/07/2016 13:39 CDT] ) ANNIE JONES RN - 07/07/2016 13:39 CDT [facility] Document Id: [id number] CDT!44 documented in this encounter Plan of Treatment Not on filedocumented as of this encounter Visit Diagnoses Not on filedocumented in this encounter Additional Health Concerns Assessment Noted Time PHQ-9 Depression Total Score: 7 06/21/2014 9:20 AM CD T documented as of this encounter
--- OUTSIDE RECORDS SUMMARY | 2021-09-05 08:00 | XMS_ITS | Encounter Summary ---
:1945 Author Organization [facility] Address [address] [place] [address] Care Team Providers Name Role Phone Unavailable Primary Care Provider Unavailable Encounter Details Date Type Department Care Team Description 01/31/2015 - Hospital Encounter [facility] Nery belle, 09/21/2015 AURELIANO Belle M.D. [address] [place] [id number] Social History Tobacco Use Types Packs/Day [...] of this encounter Miscellaneous Notes Miscellaneous - Gail Cortez M.D. - 04/27/2015 3:05 PM PAINTER ASSISTANT needs appt Document Contains Addenda Addendum by NYA WILSON LPN on April 30, 2015 10:39:19 CDT paperwork is on Dr. Gabriel desk- Addendum by GAIL VILLAR MD on April 30, 2015 07:07:05 CDT From: GAIL VILLAR MD To: [facility] Medicine Nurse Fajardo; Sent: 04/30/2015 07:07:05 CDT Subject: RE: needs appt Yes- that is fine. Gail Cm Addendum by JULIO PÉREZ on April 27, 2015 16:48:34 PAINTER ASSISTANT From: JULIO PÉREZ ([facility] Nurse Fajardo) To: GAIL VILLAR MD; Sent: 04/27/2015 16:48:34 PAINTER ASSISTANT Subject: FW: needs appt Client has an appointment in early May and would like to do it then. Can we keep the paperwork here until then? Jennifer Cm From: GAIL VILLAR MD To: [facility] Medicine Nurse Fajardo; Sent: 04/27/2015 15:05:09 PAINTER ASSISTANT Subject: needs appt Please let patient know that I have received the paperwork for the diabetic shoes, but for insuranceto pay for them we need to update her foot exam. Could she please make an appt to do this? 15min would be okay unless patient has other things to discuss. ThanksGail Source: [facility] POWERCHART Document Id: [id number] Electronically signed by Sae, [facility] Industrial Psychology Teacher [id number] at 07/14/2016 9:28 AM CDT Miscellaneous - Nya Wilson, LJairoP.N. - 02/26/2015 1:12 PM CST Accu-Chek Monitor Document Contains Addenda Addendum by ERNESTO CRUM LPN on 26 February 2015 16:17:25 PAINTER ASSISTANT left message orders filled Addendum by GAIL VILLAR MD on 26 February 2015 14:11:03 PAINTER ASSISTANT From: GAIL VILLAR MD To: [facility] Nurse Scotty; Sent: 02/26/2015 14:11:03 PAINTER ASSISTANT Subject: RE: Accu-Chek Monitor Sent to [facility]. Thanks, Gail From: NYA WILSON LPN ([facility] Nurse Scotty) To: GAIL VILLAR MD; Sent: 02/26/2015 13:12:37 PAINTER ASSISTANT Subject: Accu-Chek Monitor Pt called and states her Accu Check Monitor quit working. She needs a new RX for it and sent to [facility]. She also needs the strips. She tests 1x daily and sometimes 2-3 times depending. Please giveher refills if possible. I could not propose this for you. Source: [employer] Document Id: [id number] Electronically signed by Conversion, [facility] Industrial Psychology Teacher [id number] at 07/14/2016 9:28 AM CDT Miscellaneous - Conversion, Historical Provider Ser - 02/07/2015 11:40 AM PAINTER ASSISTANT Coding Summary-Paper Based CODING DATE: 02/07/2015 FINAL [facility] STATUS: Still Patient/Expected to Rtn pt [facility] PAYOR: Medicare ADMIT DX: REASON FOR VISIT DX: FINAL DX: PRINCIPAL: Z95.5 Presence of coronary angioplasty implant and graft SECONDARY: I25.10 Atherosclerotic heart disease of [place] coronary artery without angina pectoris R00.2 Palpitations E11.9 Type 2 diabetes mellitus without complications PROCEDURES DOCTOR NAME DATE NOTE: The code number assigned matches the documented diagnosis and / or procedure in the patient's chart. However, the narrative phrase printed from the coding software may appear abbreviated, or result in slightly different terminology. Coded By: SANDRA LARA Date Saved: 02/07/2015 11:40 am Source: [employer] Document Id: [id number] documented in this encounter Plan of Treatment Not on filedocumented as of this encounter Visit Diagnoses Not on filedocumented in this encounter Additional Health Concerns Assessment Noted Time PHQ-9 Depression Total Score: 7 06/21/2014 9:20 AM CD T documented as of this encounter
--- OUTSIDE RECORDS SUMMARY | 2021-09-05 08:00 | XMS_ITS | Encounter Summary ---
:1945 Author Organization [facility] Address [address] [place] [address] Care Team Providers Name Role Phone Unavailable Primary Care Provider Unavailable Encounter Details Date Type Department Care Team Description 07/21/2015 Hospital Encounter HX [facility] Clari Jeffers M.D. [address] , [address] [place], [place] [address] (Wo rk) Social History Tobacco Use Types [...] as needed. documented as of this encounter Nursing Notes Melvin Lauren, LJairoP.N. - 07/21/2015 12:07 PM CDT Dermatology Intake Dermatology Intake Entered On: 07/21/2015 12:10 CDT Performed On: 07/21/2015 12:07 CDT by MELVIN LAUREN [facility] General Preferred Name : Marcial Accompanied By : Alone Chief Complaint : Referral from Dr. Gabriel for Saundra MELVIN LAUREN LPN - 07/21/2015 12:07 CDT Dermatology Intake History Pain Symptoms : No General Status : Better Skin Problems Comment : Improvement with topical clindimycin Past Dermatology History : Other: Janenesara Comment : Sometimes would get hot in affected areas, but then improve MELVIN LAUREN LPN - 07/21/2015 12:07 CDT Dependent Habits Exposure to Tobacco Smoke : Care provider denies smoking in home, Other: never Smoking Status : Never smoker Tobacco 2A : No Tobacco Use/Currently Using : No Tobacco Use/Last 30 Days : No Tobacco Use/Last 12 months : No Alcohol Use : No MELVIN LAUREN LPN - 07/21/2015 12:07 CDT Caffeine Use Grid Caffeine Use : Past Type : Coffee Frequency : Occasionally Amount : 2 cup per week MELVIN LAUREN LPN - 07/21/2015 12:07 CDT Recreational Drug Use Grid Drug Use : None MELVIN LAUREN LPN - 07/21/2015 12:07 CDT Source: [employer] Document Id: [id number] CDT!28 documented in this encounter Plan of Treatment Not on filedocumented as of this encounter Visit Diagnoses Not on filedocumented in this encounter Additional Health Concerns Assessment Noted Time PHQ-9 Depression Total Score: 7 06/21/2014 9:20 AM CD T documented as of this encounter
--- OUTSIDE RECORDS SUMMARY | 2021-09-05 08:00 | XMS_ITS | Encounter Summary ---
:1945 Author Organization [facility] Address [address] [place] [address] Care Team Providers Name Role Phone Unavailable Primary Care Provider Unavailable Encounter Details Date Type Department Care Team Description 01/26/2015 Hospital Encounter HX NO MAPPING Provider, Historical Social History Tobacco Use Types Packs/Day Years [...]
--- OUTSIDE RECORDS SUMMARY | 2021-09-05 08:00 | XMS_ITS | Encounter Summary ---
:1945 Author Organization [facility] Address [address] [place] [address] Care Team Providers Name Role Phone Unavailable Primary Care Provider Unavailable Encounter Details Date Type Department Care Team Description 02/05/2015 Hospital Encounter HX [facility] CARDIOLOG Mona Lemus M.D. [address] [place] [address] (Wo rk) Social History Tobacco Use Types [...] Sign Reading Time Taken Comments Blood Pressure 128/68 02/05/2015 2:12 PM MOLD STAMPER Pulse 74 02/05/2015 2:12 PM MOLD STAMPER Temperature - - Respiratory Rate - - Oxygen Saturation - - Inhaled Oxygen Concentration - - Weight 85.8 kg (189 lb 2.5 oz) 02/05/2015 2:12 PM MOLD STAMPER Height 158 cm (5' 2.21) 02/05/2015 2:12 PM MOLD STAMPER Body Mass Index 34.37 02/05/2015 2:12 PM MOLD STAMPER documented in this encounter Medications at Time [...] documented as of this encounter Progress Notes Mona Lemus M.D. - 02/05/2015 1:50 PM CST [facility] PRIMARY CARE PROVIDER Gail Peguero MD. CHIEF COMPLAINT/REASON FOR VISIT Follow up of recent coronary intervention. HISTORY OF PRESENT ILLNESS Ms. Adams is a 69-year-old female who I met back on January 15 due to symptoms of chest discomfort and chest pain. Please refer to that note for details. Patient at that time was reporting some shortness of breath and some atypical chest pain. She underwent a stress echo which was negative but at a low workload. Given the nature of her symptoms I thought that it was best to proceed to coronaryangiography. Initially she was hesitant but subsequently elected to proceed. Coronary angiography revealed a 70 or so percent LAD lesion. The intracoronary assessment of this was abnormal showing a fractional flow reserve of only 0.8. She therefore underwent drug-eluting stent placement. She comes now for followup. Ms. Adams states she does feel her breathing is a bit better. She can walk up the steps without feeling as fatigued and short of breath. She is going to cardiac rehab and feels well with that. She is still having these palpitations which seem to be very longstanding. Whether they are truly worse is not fully clear. She is fairly vague in describing these. She had a Holter done right after I visited with her and this did show some accelerated idioventricular rhythm and some rare ectopic atrial rhythms. That being said, this was done prior to the intervention. Ms. Adams is taking her clopidogrel without problems. MEDICATIONS Simvastatin 10 mg a day. Metformin. Levothyroxine. Glipizide. Aspirin 81. Clopidogrel 75. Xanax as needed. PHYSICAL EXAMINATION A quick exam was done. VITAL SIGNS: Blood pressure was 128/68, heart rate was 74. CARDIOVASCULAR: Her groin has no hematoma. Her pulses are intact. Heart sounds are regular. LUNGS: Clear. IMPRESSION/REPORT/PLAN 1. Coronary artery disease status post drug-eluting stent to the LAD. 2. Symptoms of chest pain and shortness of breath that has seemed to resolve. 3. Symptoms of palpitations, difficult to sort out but with some mild arrhythmias seen on Holter pre-intervention. 4. Hypercholesteremia. Should be on high-intensity statin. PLAN: I discussed with Ms. Adams that the palpitations seem to be fairly longstanding but whether they were related to the coronary disease is not clear. That being said, she does have coronary disease and these palpitations so I think low-dose beta-rich could be tried. Therefore Toprol-XL a half of a 25 mg tablet was prescribed. We will see how she feels with this. As far as her statin medication is concerned she should be on a high-intensity statin so I asked herto stop her simvastatin and start the atorvastatin 40 mg a day. These prescriptions were sent to her pharmacy. We will see how she does with these changes. Otherwise she should continue cardiac rehabilitation and slowly increase her overall aerobic capacity. The plan would be for her to come back to Cardiology in 6 months to see how she is doing. If she has any problems before that she is to either let us in Cardiology know or Dr. Gabriel know and we can address accordingly. I attempted to answer Ms. Adams's questions to the best my ability. Mona Lemus M.D./gene Electronically Signed By: MONA LEMUS MD On: 03/19/2015 09:14 AM Source: [facility] MHSDOLBEYNONRADSYS Document Id: [id number] STAMPER documented in this encounter Miscellaneous Notes Miscellaneous - Annie Jones, R.N. - 02/05/2015 2:12 PM CST Adult Linderman Operator Intake/History Document Has Been Updated Adult Linderman Operator Intake/History Entered On: 02/05/2015 14:14 MOLD STAMPER Performed On: 02/05/2015 14:12 MOLD STAMPER by ANNIE JONES pot puncher Chief Complaint : Follow up Peripheral Pulse Rate : 74 /min Systolic Blood Pressure : 128 mmHg Diastolic Blood Pressure : 68 mmHg NIBP Mean : 88 mmHg BP Location : Left upper extremity Height : 158 cm(Converted to: 5 ft 2 inch(es), 62 inch(es)) Actual Weight : 85.8 kg(Converted to: 189 lb 3 oz) Dosing Weight Clinic : 85.8 kg Clinic BSA : 1.94 Body Mass Index : 34.37 kg/m2 ANNIE JONES RN - 02/05/2015 14:12 MOLD STAMPER General Info Languages : Yi Is Patient Female and 13-50 no hysterectomy : No ANNIE JONES RN - 02/05/2015 14:12 MOLD STAMPER Subjective Pain Symptoms : No ANNIE JONES RN - 02/05/2015 14:12 MOLD STAMPER Dependent Habits Exposure to Tobacco Smoke : Care provider denies smoking in home, Other: never Smoking Status : Never smoker Tobacco 2A : No ANNIE JONES RN - 02/05/2015 14:12 MOLD STAMPER Caffeine Use Grid Caffeine Use : Past Type : Coffee, Soft drinks Frequency : Occasionally Amount : 1 cup per week ANNIE JONES RN - 02/05/2015 14:12 MOLD STAMPER Recreational Drug Use Grid Drug Use : None ANNIE JONES RN - 02/05/2015 14:12 MOLD STAMPER Allergy (As Of: 02/05/2015 14:15:01 MOLD STAMPER) Allergies (Active) azithromycin Estimated Onset Date: Unspecified ; Created By: PETRA RUSSELL LPN; Reaction Status: Active ; Category: Drug ; Substance: azithromycin ; Type: Allergy ; Updated By: PETRA RUSSELL LPN; Reviewed Date: 02/01/2015 12:40 MOLD STAMPER Benicar Estimated Onset Date: Unspecified ; Created By: PETRA RUSSELL LPN; Reaction Status: Active ; Category: Drug ; Substance: Benicar ; Type: Allergy ; Updated By: PETRA RUSSELL LPN; Reviewed Date: 02/01/2015 12:40 MOLD STAMPER Diabetes Intake Do You Have Diabetes : Yes How long have you had diabetes? : More than one year Do you take pills for your diabetes? : Yes Do you check your own blood sugars? : Yes Blood Sugar High : 195 Blood Sugar Low : 80 Have you had low sugar spells? : Yes ANNIE JONES RN - 02/05/2015 14:12 MOLD STAMPER Source: [facility] POWERCHART Document Id: [id number] MOLD STAMPER!39 STAMPER documented in this encounter Plan of Treatment Not on filedocumented as of this encounter Visit Diagnoses Not on filedocumented in this encounter Additional Health Concerns Assessment Noted Time PHQ-9 Depression Total Score: 7 06/21/2014 9:20 AM CD T documented as of this encounter
--- OUTSIDE RECORDS SUMMARY | 2021-09-05 08:00 | XMS_ITS | Encounter Summary ---
:1945 Author Organization [facility] Address [address] [place] [address] Care Team Providers Name Role Phone Unavailable Primary Care Provider Unavailable Encounter Details Date Type Department Care Team Description 07/23/2015 Hospital Encounter HX [facility] CARDIOLOG Mona Lemus M.D. [address] [place] [address] (Wo rk) Social History Tobacco Use Types [...] Sign Reading Time Taken Comments Blood Pressure 118/64 07/23/2015 12:59 PM CDT Pulse 64 07/23/2015 12:59 PM CDT Temperature - - Respiratory Rate - - Oxygen Saturation - - Inhaled Oxygen Concentration - - Weight 85.3 kg (188 lb 0.8 oz) 07/23/2015 12:59 PM CDT Height 158 cm (5' 2.21) 07/23/2015 12:59 PM CDT Body Mass Index 34.17 07/23/2015 12:59 PM CDT documented in this encounter Medications [...] encounter Progress Notes Mona Lemus M.D. - 07/23/2015 12:33 PM CDT [facility] PRIMARY CARE PROVIDER Gail Peguero MD. CHIEF COMPLAINT/REASON FOR VISIT Followup of history of coronary disease. HISTORY OF PRESENT ILLNESS Ms. Adams is a 70-year-old female who I last saw in January of 2015 who has a history of coronary artery disease that we discovered towards the end of 2014. I initially met her in December for symptoms of chest discomfort and chest pain. A stress echo at that time was negative but she had a low workload. We ultimately decided to proceed to coronary angiography. This revealed a 70% lesion in her left anterior descending artery. Intracoronary flow assessment was abnormal therefore the vessel underwent intervention with a drug-eluting stent. She has done fine since then. When I saw her in January she was feeling better. We had a 6-month followup to make sure she was continuing to do well. She states she feels well with really no shortness of breath presently. No chest pain. No lightheadedness, dizziness, syncope. No edema. She is trying to walk and is trying to do that more regularly. She states her weight has been a little bit of an issue but she is going to work a bit harder. She is tolerating all the medications without problems. She does report that she is having some bright lights in her left eye off and on. No other symptomsto suggest a TIA. There has been no facial droop. No dysarthria. She did state that her left cheek got a bit hot and whether that is due to her rosacea is unclear. She does have an appointment withthe metal melter/alteration tailor coming up. MEDICATIONS Aspirin 81 mg a day. Levothyroxine. Glipizide 5 mg 2 times daily. Atorvastatin 40 mg a day. Metoprolol succinate 12.5 mg once a day. Metformin. Clindamycin. Alprazolam. Clopidogrel 75 mg a day that is supposed to stop in January. PHYSICAL EXAMINATION VITAL SIGNS: Blood pressure 118/64, heart rate 64, respirations about 14. GENERAL: She looks comfortable. Breathing comfortably. CARDIOVASCULAR: There is no jugular venous distention. I hear no carotid bruits. No bruits in herabdomen. Pulses are intact upper and lower extremity equal bilaterally. Heart sounds regular rate and rhythm with a rare ectopic beat. PMI is normal. Normal S1, S2. No S3, S4, murmurs, rubs, heaves, thrills, rubs, or clicks. LUNGS: Clear to auscultation bilaterally with no wheezes, rales, rhonchi. ABDOMEN: Soft. EXTREMITIES: Without pitting edema. DIAGNOSTICS Her last blood work was in May. Potassium was 4.3, glucose was 122 fasting with a hemoglobin A1c of 7.1%, creatinine is 0.9. Cholesterol profile: Total cholesterol 108, triglycerides 135, HDL 43 and an LDL of 38. Those are from the switch of simvastatin to atorvastatin. IMPRESSION/REPORT/PLAN 1. History of coronary artery disease with left anterior descending stenting. 2. Symptoms of shortness of breath which have improved which were likely her anginal equivalent. 3. Hypercholesterolemia, now with a quite low LDL on atorvastatin. I think this is acceptable at this point in time. If the LDL drops further could consider cutting back on the atorvastatin. 4. Some visual changes to be evaluated by ophthalmology. PLAN: At this time Ms. Adams I think is doing well. We will see what the ophthalmologists say about her vision issues. They do not sound like they are cardiac in nature. We will continue all her medications as is and the plan is for her to return in 1 year. She will need fasting cholesterol profile prior to that visit. Mona Lemus M.D./gene Electronically Signed By: MONA LEMUS MD On: 03/18/2016 11:34 AM Source: [facility] MHSDOLBEYNONRADSYS Document Id: [id number] UTER BUILDER documented in this encounter Miscellaneous Notes Miscellaneous - Andrea Malhotra R.N. - 07/23/2015 12:59 PM CDT Adult Wildlife Officer Intake/History Adult Wildlife Officer Intake/History Entered On: 07/23/2015 13:03 CDT Performed On: 07/23/2015 12:59 CDT by ANDREA MALHOTRA marine animal trainer Chief Complaint : Here for 6 month follow-up Onset of Symptoms : No chest pain. Sees bright lights in left eye off and on. Started past 2 1/2weeks. Will be seeing eye doctor in a short time. No SOB or edema Peripheral Pulse Rate : 64 /min Heart Rhythm : Irregular Systolic Blood Pressure : 118 mmHg Diastolic Blood Pressure : 64 mmHg NIBP Mean : 82 mmHg BP Location : Left upper extremity Blood Pressure Cuff Size : Regular Height : 158 cm(Converted to: 5 ft 2 inch(es), 62 inch(es)) Actual Weight : 85.3 kg(Converted to: 188 lb 1 oz) Weight Source : Standing scale Dosing Weight Clinic : 85.3 kg Clinic BSA : 1.93 Body Mass Index : 34.17 kg/m2 ANDREA MALHOTRA RN - 07/23/2015 12:59 CDT General Info Languages : Cypriot Is Patient Female and 13-50 no hysterectomy : No ANDREA MALHOTRA RN - 07/23/2015 12:59 CDT Subjective Pain Symptoms : No ANDREA MALHOTRA RN - 07/23/2015 12:59 CDT Dependent Habits Exposure to Tobacco Smoke : Care provider denies smoking in home, Other: never Smoking Status : Never smoker Tobacco 2A : No Tobacco Use/Currently Using : No Tobacco Use/Last 30 Days : No Tobacco Use/Last 12 months : No Alcohol Use : No ANDREA MALHOTRA RN - 07/23/2015 12:59 CDT Caffeine Use Grid Caffeine Use : Past Type : Coffee Frequency : Occasionally Amount : 2 cup per week ANDREA MALHOTRA RN - 07/23/2015 12:59 CDT Recreational Drug Use Grid Drug Use : None ANDREA MALHOTRA RN - 07/23/2015 12:59 CDT Source: [facility] ZigaViteCHART Document Id: [id number] CDT!39 documented in this encounter Plan of Treatment Not on filedocumented as of this encounter Visit Diagnoses Not on filedocumented in this encounter Additional Health Concerns Assessment Noted Time PHQ-9 Depression Total Score: 7 06/21/2014 9:20 AM CD T documented as of this encounter
--- OUTSIDE RECORDS SUMMARY | 2021-09-05 08:00 | XMS_ITS | Encounter Summary ---
:1945 Author Organization [facility] Address [address] [place] [address] Care Team Providers Name Role Phone Unavailable Primary Care Provider Unavailable Encounter Details Date Type Department Care Team Description 07/31/2015 Hospital Encounter HX [facility] Gail Ge M.D. [address] [address] (Wo rk) Social History Tobacco [...] Miscellaneous - Conversion, Historical Provider Ser - 07/31/2015 11:59 PM CDT Coding Summary-Paper Based CODING DATE: 08/06/2015 FINAL RW [facility] STATUS: * Discharged to Home or Self Care PAYOR: Medicare ADMIT DX: REASON FOR VISIT DX: FINAL DX: PRINCIPAL: R92.8 Other abnormal and inconclusive findings on diagnostic imaging of breast SECONDARY: Z80.3 Family history of malignant neoplasm of breast PROCEDURES DOCTOR NAME DATE NOTE: The code number assigned matches the documented diagnosis and / or procedure in the patient's chart. However, the narrative phrase printed from the coding software may appear abbreviated, or result in slightly different terminology. Coded By: MALLORIE WARD Date Saved: 08/06/2015 02:36 pm Source: Click[employer] Document Id: [id number] documented in this encounter Plan of Treatment Not on filedocumented as of this encounter Visit Diagnoses Not on filedocumented in this encounter Additional Health Concerns Assessment Noted Time PHQ-9 Depression Total Score: 7 06/21/2014 9:20 AM CD T documented as of this encounter
--- OUTSIDE RECORDS SUMMARY | 2021-09-05 08:00 | XMS_ITS | Encounter Summary ---
:1945 Author Organization [facility] Address [address] [place] [address] Care Team Providers Name Role Phone Unavailable Primary Care Provider Unavailable Encounter Details Date Type Department Care Team Description 01/15/2015 Hospital Encounter HX [facility] CARDIOLOG Mona Lemus M.D. [address] [place] [address] (Wo rk) Social History Tobacco Use Types [...] Sign Reading Time Taken Comments Blood Pressure 132/74 01/15/2015 1:17 PM STORAGE WORKER Pulse 78 01/15/2015 1:17 PM STORAGE WORKER Temperature - - Respiratory Rate - - Oxygen Saturation - - Inhaled Oxygen Concentration - - Weight 86.1 kg (189 lb 13.1 oz) 01/15/2015 1:17 PM STORAGE WORKER Height 158 cm (5' 2.21) 01/15/2015 1:17 PM STORAGE WORKER Body Mass Index 34.49 01/15/2015 1:17 PM STORAGE WORKER documented in this encounter Medications at Time of Discharge Medication Sig Dispensed Refills Start Date End Date ASPIRIN ORAL Take 81 mg by mouth daily. Take 0 with food for heart health. documented as of this encounter Consult Notes Mona Lemus M.D. - 01/15/2015 1:12 PM CST [facility] REFERRAL S[facility] Gail Peguero MD. CHIEF COMPLAINT/REASON FOR VISIT Dyspnea and chest discomfort. HISTORY OF PRESENT ILLNESS Ms. Adams is a 69-year-old female with no known cardiovascular history who is referred here from due to some symptoms of shortness of breath and chest discomfort that prompted a stress test which then prompted the referral. Patient is somewhat of a poor historian but states that she getschest discomfort once in a while. She indicates that it can come on at any time, either with rest or activity. The 1st time was about 3 to 4 months ago and she states she has had about 4 to 5 episodes. The last one she states was several weeks ago. She describes it as a dull pressure in her mid chest, not really painful, not sharp. She states it can last a few seconds and it does not radiate. There is no associated nausea, shortness of breath, diaphoresis. She has never really taken anything for it. She indicates that she had a stress test years ago. She thinks it was done for elevated blood pressure and, as far she is aware, it was unremarkable. She does state that she is short of breath as well walking up hills and that has been going on for the last few months to maybe a year but getting worse. Her states that just after 300 or 400 feet, patient has to rest and catch her breath. She does feel weak when she is walking up hills and just tired and that has been going on for a few months. She denies any orthopnea, PND, edema. She states occasionally she has maybe some slight swelling at the end of the day. She does have palpitations but these seemed to be very longstanding. She states she used to feel it but now does not feel it as much but does have a sense of it. She appears to have been seen by Cardiology for this in the past. She saw Dr. Correa in 2010 for palpitations. No significant arrhythmia I believe was identified. She had an event recorder and all that was found was some benign PVCs. Ms. Adams did undergo a stress echo for this evaluation that was ordered by Dr. Gabriel. The stress portion, she only went 5.5 minutes achieving 6.5 METs and stopped from fatigue and tiredness. Her heart rate went to 123 and blood pressure went to 176/76. Her dyspnea was associated with some upsloping ST depression but it did not did not meet criteria. However Dr. Huerta, who performed the stress test, was worried about the dyspnea and thought it might be an anginal equivalent. The stress echoportion was negative for ischemia at the workload that was achieved which was again 88% of FAC. Herpulmonary pressures did not go up significantly with exercise either. PAST MEDICAL/SURGICAL HISTORY 1. Diabetes mellitus diagnosed in 2007. 2. Hypercholesteremia, she believes diagnosed a couple years ago. 3. No history of hypertension, no history of myocardial infarction or stroke. 4. She has had 2 C sections. 5. She has an appendectomy. 6. She has had a hernia surgery. 7. She had right shoulder surgery 2 or 3 years ago, which is the last time she believes she was in the hospital. 8. She states she had polio as a child. 9. Had some SVT, perhaps years ago, and then PVCs. SYSTEMS REVIEW As per HPI. She denies fevers, chills. Her weight has been stable. She states she does not sleep well but that is not a new phenomenon. No GI issues. She does have some urinary urgency. Appetite is unremarkable. She has no history of preeclampsia, eclampsia, or gestational diabetes. She had 1 miscarriage. SOCIAL HISTORY She lives with her . She does not smoke. Does not drink alcohol. FAMILY HISTORY She states multiple family members with diabetes. She thinks one of her brothers might have had heart disease but it sounds like it might have been a valve problem or an infection of some sort. Her dad had coronary disease in his 60s and at age 68, dad's brothers also in their 60s. PHYSICAL EXAMINATION VITAL SIGNS: Blood pressure 132/74, heart rate 78, respirations 18. GENERAL: She looks comfortable. Breathing comfortably. No acute distress. CARDIOVASCULAR: Her neck is thick but there is no jugular venous distention. No carotid bruits. No obvious bruits in her abdomen. Pulses in upper extremities are equal bilaterally. Lower extremitypulses do appear to be mildly diminished but present. Heart sounds are regular rate and rhythm. PMI somewhat difficult palpate. First and second heart sounds are normal. I do not appreciate an S3 or S4. No obvious murmurs appreciated. No heaves, thrills, rubs, clicks. LUNGS: Clear auscultation bilaterally. No wheezes, rales, rhonchi. Equal excursion bilaterally. ABDOMEN: Soft. Positive bowel sounds. EXTREMITIES: Some trivial ankle edema. Nonpitting edema. No cyanosis, clubbing. NEUROLOGIC: Grossly intact. PSYCHIATRIC: She is appropriate, well-groomed. DIAGNOSTICS Stress test as described above. Her most recent cholesterol profile done November 22: Total cholesterol 160, triglycerides 162, HDL 51, LDL 77. Her creatinine 0.89 on that. Her hemoglobin A1c 7.5. IMPRESSION/REPORT/PLAN 1. Symptoms of dyspnea on exertion with risk factors for coronary disease. 2. Negative stress echo for ischemia but at a low workload. 3. Hypercholesteremia on statin with good control on the last testing. 4. Diabetes mellitus with a hemoglobin A1c less than ideal. 5. Longstanding palpitations, questionable worsening. PLAN: I had a lengthy discussion with Ms. Adams and her about the concerns brought up with the stress test as well as her symptoms. I told her that I thought the best next step was coronary angiography. We talked about the pros and cons of this at length. She however was extremely hesitantto proceed with this test. I told her of the safety of the test and tried to describe why the test was important but she still seemed to be extremely hesitant. I did bring the option of doing a coronary angiogram indicating that could help establish if there is significant disease. However if this was abnormal, as I suspect it would be, we would still recommend coronary angiography. She wished tothink about it before proceeding. By the time of this dictation, I did get an email communication from the nurse in [place] indicating that the patient was not ready to proceed to coronary angiography but wanted to do a CTA. I did indicate to Dr. Gail Gabriel that there may be an issue with cost as she is a Medicare patient as well as the issue that she would still need to proceed to coronary angiography if this was abnormal. I will wait to hear from Dr. Gabriel about which way the patient wants to go but then she would like to proceed in [place]. Mona Lemus M.D./gene Electronically Signed By: MONA LEMUS MD On: 03/19/2015 09:10 AM Source: [facility] [id number] Document Id: [id number] AGE WORKER documented in this encounter Miscellaneous Notes Miscellaneous - Andrea Malhotra R.N. - 01/25/2015 9:50 AM CST *General Message Document Contains Addenda Addendum by GAIL PEGUERO MD on 25 January 2015 10:07:33 STORAGE WORKER From: GAIL PEGUERO MD To: ANDREA MALHOTRA RN; Sent: 01/25/2015 10:07:33 STORAGE WORKER Subject: RE: *General Message Thanks so much! That was fast. Gail From: ANDREA MALHOTRA RN To: GAIL PEGUERO MD; Sent: 01/25/2015 09:50:36 STORAGE WORKER Subject: *General Message Hi Marcial Strange will be going for her cardiac cath tomorrow. Dr. Lemus is ordering the procedure. Marcial will be stopping up here this am for the cath information. Thanks Source: [facility] POWERCHART Document Id: [id number] Electronically signed by [facility] [employer] Equipment Repairer [id number] at 07/14/2016 6:16 AM CDT Miscellaneous - Andrea Malhotra R.N. - 01/15/2015 1:17 PM CST Adult Vending Machine Filler Intake/History Adult Vending Machine Filler Intake/History Entered On: 01/15/2015 13:21 STORAGE WORKER Performed On: 01/15/2015 13:17 STORAGE WORKER by ANDREA MALHOTRA children's lunchroom supervisor Chief Complaint : Here to review stress echo Onset of Symptoms : No chest pain, SOB States her heart feels weak, feels palpitations off andon. No edema Peripheral Pulse Rate : 78 /min Heart Rhythm : Regular Systolic Blood Pressure : 132 mmHg Diastolic Blood Pressure : 74 mmHg NIBP Mean : 93 mmHg BP Location : Left upper extremity Blood Pressure Cuff Size : Regular Height : 158 cm(Converted to: 5 ft 2 inch(es), 62 inch(es)) Actual Weight : 86.1 kg(Converted to: 189 lb 13 oz) Dosing Weight Clinic : 86.1 kg Clinic BSA : 1.94 Body Mass Index : 34.49 kg/m2 ANDREA MALHOTRA RN - 01/15/2015 13:17 STORAGE WORKER General Info Information Given By : Patient, Spouse Preferred Communication Mode : Verbal Languages : Bol[place]ian Is Patient Female and 13-50 no hysterectomy : No ANDREA MALHOTRA RN - 01/15/2015 13:17 STORAGE WORKER Subjective Pain Symptoms : No ANDREA MALHOTRA RN - 01/15/2015 13:17 STORAGE WORKER Dependent Habits Exposure to Tobacco Smoke : Care provider denies smoking in home Smoking Status : Never smoker Tobacco 2A : No Alcohol Use : No ANDREA MALHOTRA RN - 01/15/2015 13:17 STORAGE WORKER Caffeine Use Grid Caffeine Use : Past Type : Coffee, Soft drinks Frequency : Occasionally Amount : 1 cup per week ANDREA MALHOTRA RN - 01/15/2015 13:17 STORAGE WORKER Recreational Drug Use Grid Drug Use : None ANDREA MALHOTRA RN - 01/15/2015 13:17 STORAGE WORKER [facility] Document Id: [id number] STORAGE WORKER!37 AGE WORKER documented in this encounter Plan of Treatment Not on filedocumented as of this encounter Visit Diagnoses Not on filedocumented in this encounter Additional Health Concerns Assessment Noted Time PHQ-9 Depression Total Score: 7 06/21/2014 9:20 AM CD T documented as of this encounter
--- OUTSIDE RECORDS SUMMARY | 2021-09-05 08:00 | XMS_ITS | Encounter Summary ---
:1945 Author Organization [facility] Address [address] [place] [address] Care Team Providers Name Role Phone Unavailable Primary Care Provider Unavailable Encounter Details Date Type Department Care Team Description 07/29/2016 Hospital Encounter HX [facility] BONE DENS Elizabeth Patel, C.N.P. [address] [place] [address] (Wo rk) Social History Tobacco Use Types [...] Miscellaneous - Conversion, Historical Provider Ser - 07/29/2016 11:59 PM CDT Coding Summary-Paper Based CODING DATE: 08/01/[address] [facility] STATUS: * Discharged to Home or Self Care PAYOR: Medicare ADMIT DX: REASON FOR VISIT DX: FINAL DX: PRINCIPAL: Z13.820 Encounter for screening for osteoporosis SECONDARY: M85.80 Other specified disorders of bone density and structure, unspecified site PROCEDURES DOCTOR NAME DATE NOTE: The code number assigned matches the documented diagnosis and / or procedure in the patient's chart. However, the narrative phrase printed from the coding software may appear abbreviated, or result in slightly different terminology. Coded By: MALLORIE WARD Date Saved: 08/01/2016 12:05 pm Source: [employer] Document Id: [id number] documented in this encounter Plan of Treatment Not on filedocumented as of this encounter Visit Diagnoses Not on filedocumented in this encounter Additional Health Concerns Assessment Noted Time PHQ-9 Depression Total Score: 7 06/21/2014 9:20 AM CD T documented as of this encounter
--- OUTSIDE RECORDS SUMMARY | 2021-09-05 08:00 | XMS_ITS | Encounter Summary ---
:1945 Author Organization [facility] Address [address] [place] [id number] Care Team Providers Name Role Phone Unavailable Primary Care Provider Unavailable Encounter Details Date Type Department Care Team Description 01/24/2015 Hospital Encounter HX [facility] Gail Hansen M.D. [id number] [place] [phone] (Wo rk) Social History Tobacco Use [...] - - Height 158 cm (5' 2.21) 01/24/2015 12:13 PM POLICE PILOT Body Mass Index - - documented in this encounter Medications at Time of Discharge Medication Sig Dispensed Refills Start Date End Date ASPIRIN ORAL Take 81 mg by mouth daily. Take 0 with food for heart Overblog. documented as of this encounter Nursing Notes Andrea Malhotra R.N. - 01/25/2015 3:26 PM CST meds Patient instructed to hold glyizide and metformin before angiogram per Dr. Gabriel. Stated that she understood. Electronically Signed By: ANDREA MALHOTRA RN On: 01/25/2015 03:27 PM Modified by and Electronically Signed by: ANDREA MALHOTRA RN On: 01/25/2015 03:27 PM Source: [employer] Document Id: [id number] PILOT documented in this encounter Miscellaneous Notes Miscellaneous - Conversion, Historical Provider Ser - 01/24/2015 11:59 PM POLICE PILOT Coding Summary-Paper Based CODING DATE: 02/08/2015 FINAL [place] [facility] STATUS: * Discharged to Home or Self Care PAYOR: Medicare ADMIT DX: REASON FOR VISIT DX: FINAL DX: PRINCIPAL: R00.2 Palpitations SECONDARY: R06.00 Dyspnea, unspecified PROCEDURES DOCTOR NAME DATE NOTE: The code number assigned matches the documented diagnosis and / or procedure in the patient's chart. However, the narrative phrase printed from the coding software may appear abbreviated, or result in slightly different terminology. Coded By: GUERITA CHAN Date Saved: 02/08/2015 09:20 am Source: [employer] Document Id: [id number] documented in this encounter Plan of Treatment Not on filedocumented as of this encounter Visit Diagnoses Not on filedocumented in this encounter Additional Health Concerns Assessment Noted Time PHQ-9 Depression Total Score: 7 06/21/2014 9:20 AM CD T documented as of this encounter
--- OUTSIDE RECORDS SUMMARY | 2021-09-05 08:00 | XMS_ITS | Encounter Summary ---
:1945 Author Organization [facility] Address [address] [place] [address] Care Team Providers Name Role Phone Unavailable Primary Care Provider Unavailable Encounter Details Date Type Department Care Team Description 09/03/2016 Hospital Encounter HX [facility] Mahesh Peraza M.D., Ph.D. [address] [place] [address] (Wo rk) Social History Tobacco Use Types [...]
--- OUTSIDE RECORDS SUMMARY | 2021-09-05 08:00 | XMS_ITS | Encounter Summary ---
:1945 Author Organization [facility] Address [address] [place] [address] Care Team Providers Name Role Phone Unavailable Primary Care Provider Unavailable Encounter Details Date Type Department Care Team Description 05/24/2015 Hospital Encounter [facility] Ne gamez M.D. [address] [place] [phone] (Wo rk) Social History Tobacco Use [...] Sign Reading Time Taken Comments Blood Pressure 140/57 05/24/2015 8:22 AM CDT Pulse 63 05/24/2015 8:22 AM CDT Temperature - - Respiratory Rate 16 05/24/2015 8:22 AM CDT Oxygen Saturation - - Inhaled Oxygen Concentration - - Weight 85.2 kg (187 lb 13.3 oz) 05/24/2015 8:22 AM CDT Height 158 cm (5' 2.21) 05/24/2015 8:22 AM CDT Body Mass Index 34.13 05/24/2015 8:22 AM CDT documented in this encounter Medications [...] encounter Progress Notes Ne Cortez M.D. - 05/24/2015 8:35 AM CDT Clinic Full Note CHIEF COMPLAINT/REASON FOR VISIT diabetic f/u- HISTORY OF PRESENT ILLNESS Marcial presents today to follow up on her diabetes. She reports that things seem to be going okay. She checks her blood sugars two to three times per week. This morning it was 137. She is working on avoiding sugar. She is going to cardiac rehab 2 days per week. She notes some sensations in the right greater than left leg at times. She has a really hard time describing the sensation but reports she notices it sometimes when she walks. It is a tightness perhaps that sometimes starts in her foot and goes up her leg but other times starts in her calf and goes down. She denies any tingling. This has been ongoing for about 6 weeks but is staying the same. She has tried different shoes without any change. She also continues to get the hotness to her left cheek but it is not occurring as often. It is staying in 1 spot that lasts approximately 1 minute. It happens a couple times per day. Patient also notes worsening of the rosacea on the nose. She will get pimples that will turn into red spots. She is concerned it will get worse this summer. She does have an appointment with Dermatology next month. MEDICATIONS aspirin 81 mg oral tablet, 81 [...] Anxiety disorder NOS Coronary Artery Disease (CAD) Cocopah Vessel Hyperlipidemia/Dyslipidemia Hypothyroidism NOS NIDDM [non-insulin dependent diabetes mellitus] Osteoarthritis Osteoporosis NOS Palpitations Renal Calculus Rosacea Shortness Of Breath (SOB) Historical No historical problems PROCEDURES/SURGICAL HISTORY Exercise stress echocardiography (01/04/2015), Colonoscopy (01/03/2009), COLONOSCOPY W BIOPSY - 07/06/02 (07/06/2002), C LAP,HERNIA REPAIR PROC,UNLIST - 03/22/01 (03/22/2001), REPAIR INCISIONAL HERNIA,REDUCIBLE - 06/14/98 - Incisional hernia repair w mesh (06/14/1998), Biopsy of breast (02/16/1986), Appendectomy (1960), section. SOCIAL HISTORY Date Time: 05/24/2015 08:22 Tobacco: Smoking Status: Never smoker Exposure: Care [...] SYSTEMS REVIEW As per HPI. No chest pain or shortness of breath. She notices sock rings at the end of the day. Patient has numbness to her right great toe. VITAL SIGNS T: 36.7 ??C (Core) HR: 63 RR: 16 BP: 140 / 57 HT: 158 cm WT: 85.2 kg BMI: 34.13 PHYSICAL EXAMINATION General: Alert and oriented. No acute distress. Neck: Supple. No lymphadenopathy. Right carotid bruit. No bruit on left. Cardiovascular exam: Regular rate and rhythm. Normal S1 and S2. 2/6 murmurs. Lungs: Clear to auscultation bilaterally. Extremities: Trace pedal edema. DIABETIC FOOT EXAM: 2+ dorsalis pedis pulse bilaterally. Less than 2 second capillary refill. Patient has a callus at the base of her right fifth MTP joint. There is redness to the lateral fifth toes bilaterally. There is a callus to the medial first great toe on the right. Patient's second toes are longer than her first toes. She also has bumps on the top of both feet. Sensation to monofilament is intact bilaterally. LAB RESULTS -----CHEMISTRY----- Sodium Lvl: 142.3 05/24/15 Potassium Lvl: 4.3 05/24/15 Chloride: 106 05/24/15 CO2: 25.5 05/24/15 AGAP: 11 05/24/15 Glucose Fastin High 05/24/15 Creatinine: 0.88 05/24/15 EGFR (MDRD): >60 05/24/15 EGFR (MDRD): >60 05/24/15 BUN: 17 05/24/15 Calcium Lvl: 9.6 05/24/15 ALT: 18 05/24/15 Cholesterol: 108 05/24/15 Tri 05/24/15 HDL: 43 Low 05/24/15 LDL Calculated: 38 05/24/15 Chol/HDL Ratio: 3 05/24/15 Hgb A1c: 7.1 High 05/24/15 IMPRESSION/REPORT/PLAN 1. DM2 A1c is improved at 7.1%. We will continue current medications. I encouraged patient to be active. Ordered: OV Est Pt Level 4 - 23354 - 25 min 2. Pain Leg Itz Most likely this is more musculoskeletal since the pain improves as she continues to walk. If it was claudication I think it would continue to get worse. We will continue to monitor. Ordered: OV Est Pt Level 4 - 12479 - 25 min 3. Hyperlipidemia NOS Lipid panel acceptable. ALT normal. Continue statin. 4. Rosacea NOS Patient has follow up with Dermatology next month. We will not make any changes until that appointment. Ordered: OV Est Pt Level 4 - 31991 - 25 min 5. Burning Sensation Skin This is a little better but continues. It is not overly bothersome so we will continue to monitor. Ordered: OV Est Pt Level 4 - 17256 - 25 min Electronically Signed By: NE VILLAR MD On: 05/25/2015 08:37 AM Source: [employer] Document Id: [id number] documented in this encounter Miscellaneous Notes Miscellaneous - Ne Cortez M.D. - 05/24/2015 8:59 AM CDT Ambulatory Patient Summary [address] [id number] Visit Information Name: MARCIAL ADAMS [facility] Number: [id number] Current Date: 05/24/2015 08:59:10 Physicians Attending Provider: NE VILLAR MD Primary [...] the Following Medications: Medication list as of 05-24-15 08:59 Attention: If you have any medications at [...] Electronically Signed By: NE VILLAR MD Signed On:24-MAY-2015 08:58:48 Your Allergies & Intolerances Substance Reaction Symptoms [...] Stress Test Active Coronary Artery Disease (CAD) Cocopah Vessel Active Your Upcoming Appointments Date Time Location Provider 05/25/2015 08:00 [facility] Rehab Srvs [facility] Cardio/Pulm Therapist 06/23/2015 14:30 [facility] Pierce Mcmahon MD, Lon Leblanc Attention: Contact [...] if you dont have one. Go to [email or web address] and click on Create Your Account. Then, follow the directions to complete the online form. Youll be asked for your [facility] number which you can find at the top of this document. Your Goals/Additional instructions: Source: [facility] POWERCHART Document Id: [id number] Miscellaneous - Ne Cortez M.D. - 05/24/2015 8:59 AM CDT Ambulatory Discharge Medication List [address] [id number] Visit Information Name: MARCIAL ADAMS [facility] Number: [id number] Visit Date: 05/24/2015 08:59:09 Attending Provider: NE VILLAR MD Primary Care Provider: NE VILLAR MD MARCIAL ADAMS has been given the following list of [...] the Following Medications: Medication list as of 05-24-15 08:59 Attention: If you have any medications at [...] Electronically Signed By: NE VILLAR MD Signed On:24-MAY-2015 08:58:48 Additional Information: Source: [facility] POWERCHART Document Id: [id number] Miscellaneous - Ne Cortez M.D. - 05/24/2015 8:38 AM CDT Quality Measures Quality Measures Entered On: 05/25/2015 8:38 CDT Performed On: 05/24/2015 8:38 CDT by NE VILLAR MD Diabetes Date of Last Foot Exam : 05/24/2015 CDT NE VILLAR MD - 05/25/2015 8:38 CDT Source: [facility] POWERCHART Document Id: [id number] CDT!3 Miscellaneous - Maria C Wilson L.P.N. 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 Entered On: 05/24/2015 8:27 CDT Performed On: 05/24/2015 8:22 CDT by MARIA C WILSON LPN Intake Chief Complaint : diabetic f/u- Ambulatory Intake Additional Information : needs foot audit Temperature Core : 36.7 DegC(Converted to: 98.1 DegF) Peripheral Pulse Rate : 63 /min Respiratory Rate : 16 /min Systolic Blood Pressure : 140 mmHg Diastolic Blood Pressure : 57 mmHg NIBP Mean : 85 mmHg BP Location : Left upper extremity Blood Pressure Cuff Size : Large Height : 158 cm(Converted to: 5 ft 2 inch(es), 62 inch(es)) Actual Weight : 85.2 kg(Converted to: 187 lb 13 oz) Weight Source : Standing scale Dosing Weight Clinic : 85.2 kg Clinic BSA : 1.93 Body Mass Index : 34.13 kg/m2 MARIA C WILSON LPN - 05/24/2015 8:22 CDT General Info Information Given By : Patient Languages : Colombian Is Patient Female and 13-50 no hysterectomy : No MARIA C WILSON LPN - 05/24/2015 8:22 CDT Subjective Pain Symptoms : No MARIA C WILSNO LPN - 05/24/2015 8:22 CDT Dependent Habits Exposure to Tobacco Smoke : Care provider denies smoking in home, Other: never Smoking Status : Never smoker Tobacco 2A : No Tobacco Use/Currently Using : No Tobacco Use/Last 30 Days : No Tobacco Use/Last 12 months : No Alcohol Use : No MARIA C WILSON LPN - 05/24/2015 8:22 CDT Caffeine Use Grid Caffeine Use : Past Type : Coffee, Soft drinks Frequency : Occasionally Amount : 1 cup per week ZHOUMARIAC ELENA Terri NIX - 05/24/2015 8:22 CDT Recreational Drug Use Grid Drug Use : None STEVE MARIA C Murray LPN - 05/24/2015 8:22 CDT Source: [facility] [employer] Document Id: [id number] CDT!41 Miscellaneous - Reanna Castano R.N. - 04/04/2015 3:39 PM CST alprazolam Document Contains Addenda Addendum by SADE HANSON RN on 05 April 2015 09:00:07 MANAGER POOL called to [facility] Addendum by NE VILLAR MD on 05 April 2015 06:01:32 MANAGER POOL From: NE VILLAR MD Sent: 04/05/2015 06:01:32 MANAGER POOL Subject: RE:alprazolam Approved Order:ALPRAZolam (Xanax 0.5 mg oral tablet) 1 tab(s) PO q8hr Take for anxiety. Qty: 25 tab(s) Refills: 1 PRN Anxiety Don't Print - called to pharmacy (Rx) [facility] Signed by NE VILLAR MD 04/05/2015 06:01:30 From: REANNA CASTANO RN To: NE VILLAR MD; REANNA CASTANO RN; Sent: 04/04/2015 15:39:20 MANAGER POOL Subject: alprazolam On hold pending signature Order:ALPRAZolam (Xanax 0.5 mg oral tablet) 1 tab(s) PO q8hr Take for anxiety. Qty: 25 tab(s) Refills: 1 PRN Anxiety Don't Print - called to pharmacy (Rx) [facility] [place] 02/22/15 Last written 11/23/14 #25 with 1 refill. Source: [facility] [employer] Document Id: [id number] Electronically signed by Conversion, [facility] Braille Operator [id number] at 07/12/2016 8:28 PM CDT Miscellaneous - Sade Hanson R.N. - 03/09/2015 11:17 AM CST triage call Document Contains Addenda Addendum by REANNA CASTANO RN on 12 March 2015 06:54:16 MANAGER POOL noted Addendum by NE VILLAR MD on 10 March 2015 21:08:11 MANAGER POOL From: NE VILLAR MD To: SADE HANSON RN; Sent: 03/10/2015 21:08:11 MANAGER POOL Subject: RE: triage call Agree with plan. From: SADE HANSON RN To: NE VILLAR MD; SADE HANSON RN; Sent: 03/09/2015 11:17:45 MANAGER POOL Subject: triage call Pt called to ask if she could take large amounts of garlic supplement for head cold. Advised that we couldn't advise that as it isn't regulated and large amounts could lower BP. She could research it. She decided to just cook with it for a few days. She will speak to pharmacy about a cough med as she is starting to cough and I advised her of Sat clinic or making an appt if symptoms get worse. Denies fever, only self care she has done has been to drink a cup of tea this am. Advised increased liquids. [facility] Document Id: [id number] Electronically signed by Conversion, [facility] Braille Operator [id number] at 07/12/2016 8:28 PM CDT documented in this encounter Plan of Treatment Not on filedocumented as of this encounter Procedures Procedure Name Priority Date/Time Associated Comments Diagnosis LIPID PANEL, S Routine 05/24/2015 8:11 Results f or this AM CDT procedure are i n the results section. ALANINE AMINOTRANSFERASE Routine 05/24/2015 8:11 Results for this (ALT), S/P AM CDT procedure are i n the results section. HEMOGLOBIN A1C, B Routine 05/24/2015 8:11 Result s for this AM CDT procedure are i n the results section. BASIC METABOLIC PANEL, Routine 05/24/2015 8:11 R esults for this S/P AM CDT procedure are i n the results section. documented in this encounter Results ALT (Alanine Aminotransferase) (05/24/2015 8:11 AM CDT) athologist Signature Alanine 18 7 - 45 POWERCHART Amniotransferas UNITL e, LD Specimen (Source) Anatomical Collection Method Collection Time Re ceived Time Location / / Volume Laterality Blood 05/24/2015 8:11 AM CDT Ne Haas M.D. LAB BLOOD ADD-ON Performing Organization Address City/[facility]/ZIP Code Phon e Number POWERCHART (ABNORMAL) BMP (Basic Metabolic Panel) (05/24/2015 8:11 AM CDT) P athologist Signature Sodium, S 142.3 135.0 - POWERCHART 145.0 MML Potassium, S 4.3 3.6 - 4.8 POWERCHART MMOLL Chloride, S 106 98 - 107 POWERCHART MMOLL CO2 Total 25.5 23.0 - POWERCHART 29.0 MMOLL Glucose, 122 (H) 70 - 99 POWERCHART Fasting, S MGDL BUN (Blood 17 7 - 18 POWERCHART Urea MGDL Nitrogen), S Creatinine, S 0.88 0.60 - POWERCHART 1.30 MGDL Calcium, 9.6 8.8 - 10.2 POWERCHART Total, S MGDL Anion Gap 11 10 - 20 POWERCHART MMOLL HXeGFR (MDRD) >60 >=60 POWERCHART [id number] eGFR >60 >=60 POWERCHART Black/ [id number] [place] Specimen (Source) Anatomical Collection Method Collection Time Re ceived Time Location / / Volume Laterality Blood 05/24/2015 8:11 AM CDT Ne Haas M.D. LAB BLOOD ADD-ON Performing Organization Address City/State/ZIP Code Phon e Number POWERCHART (ABNORMAL) Lipid Panel (05/24/2015 8:11 AM CDT) P athologist Signature Cholesterol, 108 <=199 MGDL POWERCHART Total Comment: 2013 National Lipid Association recommen dations for Total Cholesterol in adults ages 18 and up: Desirable <200 mg/dL Borderline high 200-239 mg/dL High 240 mg/dL 2014 National Lipid Association recommen dations for Total Cholesterol in children ages 2 to 17. Acceptable <170 mg/dL Borderline High 170-199 mg/dL High 200 mg/dL HX HDL 43 (L) >=50 MGDL POWERCHART Comment: 2014 National Lipid Association recommen dations for HDL-C in adults ages 18 and up: Low <40 mg/dL (Men) Low <50 mg/dL (Women) 2014 National Lipid Association recommen dations for HDL-C in children ages 2 to 17. Low <40 mg/dL Borderline Low 40-45 mg/dL Acceptable >45 mg/dL Triglycerides 135 <=149 MGDL POWERCHART Comment: 2014 National Lipid Association recommen dations for Triglycerides in adults ages 18 and up: Normal <150 mg/dL Borderline High 150-199 mg/dL High 200-499 mg/dL Very High 500 mg/dL 2014 National Lipid Association recommen dations for Triglycerides in children ages 2 to 9. Acceptable <75 mg/dL Borderline High 75-99 mg/dL High 100 mg/dL 2014 National Lipid Association recommen dations for Triglycerides in children ages 10 to 17. Acceptable <90 mg/dL Borderline High 90-129 mg/dL High 130 mg/dL Trigs >400mg/dL: Triglycerides >400 mg/ dL. Calculated LDL cholesterol is not valid. Non-HDL cholesterol may be used for risk assessment when triglycerides are >400mg/dL. Calculated LDL 38 <=129 MGDL POWERCHART Comment: 2013 National Lipid Association recommen dations for LDL-C in adults ages 18 and up: Desirable <100 mg/dL Above desirable 100-129 mg/dL Borderline high 130-159 mg/dL High 160-189 mg/dL Very High 190 mg/dL 2014 National Lipid Association recommen dations for LDL-C in children ages 2 to 17. Acceptable <110 mg/dL Borderline High 110-129mg/dL High 130 mg/dL LDL-C >190mg/dL: The markedly elevated LDL level is suggestive of a genetic condition such as familial hypercholesterolemia(FH) or familial defective apolipoprotein B-100 (FDB). Molecular genetic t esting for FH and FDB is available [facility]: FH/ADH Genetic Reflex Case el (test ADHP). Acquired (non-genetic) causes of markedly increased LDL cholesterol include cholestatic liver disease due to the presence of LpX. If a genetic form of hypercholesterolemia is suspected, family studies including biochemical testing fo r lipids (total cholesterol,triglycerides, LDL cholesterol and HDL cholesterol) are recommended. ??Please contact the laboratory at or the on-line test catalog at [employer] for information about how to order these miky ts or to speak with a genetic counselor. Further interpretation would require clinical information. Total Cholesterol/HDL Ratio 3 PO WERCHART Specimen (Source) Anatomical Collection Method Collection Time Re ceived Time Location / / Volume Laterality Blood 05/24/2015 8:11 AM CDT Ne Haas M.D. LAB BLOOD ADD-ON Performing Organization Address City/State/ZIP Code Phon e Number POWERCHART (ABNORMAL) Hemoglobin A1c (05/24/2015 8:11 AM CDT) P athologist Signature Hemoglobin A1c, 7.1 (H) <=5.6 A1C POWERCHART B Specimen (Source) Anatomical Collection Method Collection Time Re ceived Time Location / / Volume Laterality Blood 05/24/2015 8:11 AM CDT Ne Haas M.D. LAB BLOOD ADD-ON Performing Organization Address City/State/ZIP Code Phon e Number POWERCHART documented in this encounter Visit Diagnoses Not on filedocumented in this encounter Additional Health Concerns Assessment Noted Time PHQ-9 Depression Total Score: 7 06/21/2014 9:20 AM CD T documented as of this encounter
--- OUTSIDE RECORDS SUMMARY | 2021-09-05 08:00 | XMS_ITS | Encounter Summary ---
:1945 Author Organization [facility] Address [address] [place] [address] Care Team Providers Name Role Phone Unavailable Primary Care Provider Unavailable Encounter Details Date Type Department Care Team Description 12/11/2014 Hospital Encounter HX [facility] Olivia Vidales, COMMUNICATION SKILLS INSTRUCTOR, C.N.P. [address] [place], [place] [address] (Wo rk) Social History Tobacco Use Types [...] Sign Reading Time Taken Comments Blood Pressure 136/60 12/11/2014 1:46 PM CDT Pulse 79 12/11/2014 1:46 PM CDT Temperature - - Respiratory Rate 18 12/11/2014 1:46 PM CDT Oxygen Saturation - - Inhaled Oxygen Concentration - - Weight - - Height 158 cm (5' 2.21) 12/11/2014 1:46 PM CDT Body Mass Index - - documented in this encounter Medications at Time of Discharge Medication Sig Dispensed Refills Start Date End Date ASPIRIN ORAL Take 81 mg by mouth daily. Take 0 with food for heart health. documented as of this encounter Progress Notes Jose Carlos Vidales, R.N. - 12/11/2014 1:38 PM CDT [id number] CHIEF COMPLAINT/REASON FOR VISIT Painful eye. Sinus congestion. Diabetic follow up. HISTORY OF PRESENT ILLNESS Archie is a very pleasant 69-year-old female who comes into the clinic today with concerns related to redness and mild discomfort in her left eye. She reports her symptoms have been present for 2 to3 days. She reports her great granddaughter was diagnosed with acute conjunctivitis approximately 1week ago. She denies any pruritic nature to her left eye. She denies any concerns related to her right eye. She reports intermittent discharge related to a watery consistency as well as a thicker discharge from her left eye. She denies any gritty sensation in her eyes. She also reports concernsrelated to sinus pain and pressure. She reports intermittent generalized aches and mild cough for ap proximately 1 week. She denies any known fevers but does report intermittent chills. She denies any nasal drainage. She reports her cough is nonproductive. She denies any vision changes. She also reports concerns related to lower blood sugars prior to her noon meal. She reports she was seen in Primary Care on November 29, 2014 and her glipizide was increased from 2.5 mg to 5 mg daily. She reports her noon blood sugars over the last 4 days have ranged from 74 to 100. She reports her morning blood sugars range from 100 to 120. She has no record of her evening blood sugars. Her only bedtime blood sugar was 175 and that was post her evening meal. She reports mild symptoms related to hypoglyce luis prior to her noon meal; however, reports once she eats lunch she feels well. She is here today for further evaluation. She has no other concerns today. MEDICATIONS Reviewed and reconciled. New medication today; polymyxin B-trimethoprim 10,000 units per 1 mg, 1 drop left eye every 3 hours x7 days. ALLERGIES Azithromycin, Benicar. PAST MEDICAL/SURGICAL HISTORY PAST MEDICAL HISTORY: Reviewed and unchanged. PAST SURGICAL HISTORY: Reviewed and unchanged. SOCIAL HISTORY Archie is a nontobacco, nonalcohol user. SYSTEMS REVIEW As per HPI. She denies heart palpitations, chest pain, or shortness of breath. She denies headaches or dizziness. She reports concerns related to mild hypoglycemia; however, she reports feeling wellafter she eats lunch. She denies any concerns with bowels or bladder. VITAL SIGNS Temperature 36.3, heart rate 79, respiration rate 18, blood pressure 136/60, oxygen saturation 97% on room air. PHYSICAL EXAMINATION GENERAL: Alert and oriented. No acute distress. HEENT: Head normocephalic/atraumatic. Eyes: Right eye unremarkable. Left eye with injected sclera. A scant amount of discolored mucus. No foreign object appreciable. Ears: TMs are clear bilaterally with bony landmarks noted within normal limits. Nares patent. Oropharynx with mild erythema and no exudate. NECK: Supple, without thyromegaly. Full range of motion. LYMPHATIC: No axillary, cervical or supraclavicular lymphadenopathy. HEART: Regular S1, S2. No murmurs, rubs, or gallops noted. LUNGS: Clear to auscultation bilaterally. No prolonged expiratory phases, wheezing, rales, or rhonchi. EXTREMITIES: No lower extremity edema. NEUROLOGICAL: Cranial nerves II to XII grossly intact and symmetric. She ambulates with a steady gait. IMPRESSION/REPORT/PLAN 1. Sinus congestion. 2. Acute conjunctivitis. 3. Diabetes. PLAN: 1. Sinus congestion. At this time, I believe she has a viral illness. She was instructed to increase her non-caffeine oral fluid intake and maintain adequate rest. She was instructed to contact theclinic with worsening or no improvement in symptoms. 2. Acute conjunctivitis. I prescribed Polymyxin B-trimethoprim 10,000 units per 1 mg to be used inher left eye every 3 hours x7 days. She was to instructed to follow up in primary care with worsening or no improvement in symptoms. 3. Diabetes. We did discuss the appropriateness of continuing with her glipizide 5 mg daily. I will discuss her blood sugars with Dr. Gail Gabriel and make changes in her glipizide dosing if appropriate. At this time, her blood sugars have not dropped below 70 at all throughout her day. We will contact her if any adjustments are needed in her diabetic regimen. She verbalized understanding of this plan. All questions were answered. She left in no acute distress. Ready to learn. No apparent learning barriers were identified. Learning preferences include listening. Explained diagnosis and treatment plan. Patient/Child/Caregiver expressed understanding of the content. Jose Carlos Vidales N.P./gene Electronically Signed By: JOSE CARLOS VIDALES NP On: 12/13/2014 10:53 PM Modified by and Electronically Signed by: JOSE CARLOS VIDALES ROSTER CLERK On: 12/13/2014 10:53 PM Source: [facility] MHSDOLBEYNONRADSYS Document Id: [id number] documented in this encounter Miscellaneous Notes Miscellaneous - Jose Carlos Vidales R.N. - 12/11/2014 2:38 PM CDT Ambulatory Patient Summary [address] [id number] Visit Information Name: ARCHIE BAZAN [facility] Number: [id number] Current Date: 12/11/2014 14:38:49 Physicians Attending Provider: JOSE CARLOS VIDALES NP Primary Care Provider: GAIL VILLAR MD BENI ARCHIE PAU has been given the following list of [...] day Take with food for heart health. *cholecalciferol (Vitamin D3 5000 intl units oral tablet) 1 Tablet(s), Oral, once a day *cinnamon oral (Cinnamon 500 mg oral capsule) 2 cap, Oral, two times a day clindamycin topical (clindamycin 1% topical gel) 1 shauna, Topical, two times a day rosacea glipiZIDE (glipiZIDE 5 mg oral tablet) 1 Tablet(s), Oral, once a day 30 minutes before breakfast levothyroxine (levothyroxine 75 mcg (0.075 mg) oral tablet) 1 Tablet(s), Oral, once a day for thyroid replacement metFORMIN (metFORMIN 500 mg oral tablet, extended release) 1 Tablet(s), Oral, two times a day polymyxin B-trimethoprim ophthalmic (polymyxin B-trimethoprim 10,000 units-1 mg/mL ophthalmic solution) 1 Drops, Eyes(Both), every 3 hours x 7 day(s) New Routed to [address] [address] *potassium acetate (potassium acetate) 1tab, Oral, once a day OTC simvastatin (simvastatin 10 mg oral tablet) 1 Tablet(s), Oral, once a day (at bedtime) Take for highcholesterol. * You have let us know that you are not taking this medication as listed. Please talk with your primary care provider or the health care provider who prescribed the medication as soon as possible. Stop Taking the Following Medications: Medication list as of 12-11-14 14:38 Attention: If you have any medications at home that are not on this list, DO NOT take them until youcontact your provider for clarification. Give a copy of your medication list to your primary care provider. Update your medication list any time medications or doses are changed and carry your medication list at all times in case of emergency. Electronically Signed By: JOSE CARLOS VIDALES NP Signed On:11-DEC-2014 14:38:35 Your Allergies & Intolerances Substance Reaction Symptoms [...] 3 and 4 had no useable data. Your Upcoming Appointments Date Time Location Provider 01/04/2015 11:15 [facility] Echo [facility] Room 1 Attention: Contact your local Clinic if further [...] you dont have one. Go to [email or web address] and click on Create Your Account. Then, follow the directions to complete the online form. Youll be asked for your [facility] number which you can find at the top of this document. Your Goals/Additional instructions: Source: [facility] POWERCHART Document Id: [id number] Miscellaneous - Jose Carlos Vidales R.N. - 12/11/2014 2:38 PM CDT Ambulatory Discharge Medication List [address] [id number] Visit Information Name: ARCHIE BAZAN [facility] Number: [id number] Visit Date: 12/11/2014 14:38:46 Attending Provider: JOSE CARLOS VIDALES ROSTER CLERK Primary Care Provider: GAIL VILLAR MD ARCHIE [...] day Take with food for heart health. *cholecalciferol (Vitamin D3 5000 intl units oral tablet) 1 Tablet(s), Oral, once a day *cinnamon oral (Cinnamon 500 mg oral capsule) 2 cap, Oral, two times a day clindamycin topical (clindamycin 1% topical gel) 1 shauna, Topical, two times a day rosacea glipiZIDE (glipiZIDE 5 mg oral tablet) 1 Tablet(s), Oral, once a day 30 minutes before breakfast levothyroxine (levothyroxine 75 mcg (0.075 mg) oral tablet) 1 Tablet(s), Oral, once a day for thyroid replacement metFORMIN (metFORMIN 500 mg oral tablet, extended release) 1 Tablet(s), Oral, two times a day polymyxin B-trimethoprim ophthalmic (polymyxin B-trimethoprim 10,000 units-1 mg/mL ophthalmic solution) 1 Drops, Eyes(Both), every 3 hours x 7 day(s) New Routed to [address] [address] *potassium acetate (potassium acetate) 1tab, Oral, once a day OTC simvastatin (simvastatin 10 mg oral tablet) 1 Tablet(s), Oral, once a day (at bedtime) Take for highcholesterol. * You have let us know that you are not taking this medication as listed. Please talk with your primary care provider or the health care provider who prescribed the medication as soon as possible. Stop Taking the Following Medications: Medication list as of 12-11-14 14:38 Attention: If you have any medications at home that are not on this list, DO NOT take them until youcontact your provider for clarification. Give a copy of your medication list to your primary care provider. Update your medication list any time medications or doses are changed and carry your medication list at all times in case of emergency. Electronically Signed By: JOSE CARLOS VIDALES ROSTER CLERK Signed On:11-DEC-2014 14:38:35 Additional Information: Source: [facility] POWERCHART Document Id: [id number] Miscellaneous - Mel Batista L.P.N. - 12/11/2014 1:46 PM CDT Adult Chalk Machine Operator Intake/History Adult Chalk Machine Operator Intake/History Entered On: 12/11/2014 13:50 CDT Performed On: 12/11/2014 13:46 CDT by MEL BATISTA LPN Intake Chief Complaint : Has left eye ,pink. Also blood sugars have been out wack. MEL BATISTA LPN - 12/11/2014 13:52 CDT Temperature Core : 36.3 DegC(Converted to: 97.3 DegF) (LOW) Peripheral Pulse Rate : 79 /min Respiratory Rate : 18 /min Heart Rhythm : Regular Systolic Blood Pressure : 136 mmHg Diastolic Blood Pressure : 60 mmHg NIBP Mean : 85 mmHg BP Location : Left upper extremity Blood Pressure Cuff Size : Large SpO2 : 97 % Oxygen Therapy : Room air Height : 158 cm(Converted to: 5 ft 2 inch(es), 62 inch(es)) MEL BATISTA LPN - 12/11/2014 13:46 CDT General Info Information Given By : Patient Languages : Latvian Is Patient Female and 13-50 no hysterectomy : No MEL BATISTA LPN - 12/11/2014 13:46 CDT Subjective Pain Symptoms : Yes MEL BATISTA LPN - 12/11/2014 13:46 CDT Pain Scale Pain Scale Verbal 0-10 : Open MEL BATISTA LPN - 12/11/2014 13:46 CDT Pain Pain Assessment Grid Pain 1 Location : Other: sinus Intensity : 2 MEL BATISTA LPN - 12/11/2014 13:46 CDT Dependent Habits Tobacco Use/Currently Using : No Exposure to Tobacco Smoke : Care provider denies smoking in home Smoking Status : Never smoker Alcohol Use : No MEL BATISTA LPN - 12/11/2014 13:46 CDT Caffeine Use Grid Caffeine Use : Past Type : Coffee, Soft drinks Frequency : Occasionally Amount : 1 cup per week MEL BATISTA LPN - 12/11/2014 13:46 CDT Recreational Drug Use Grid Drug Use : None MEL BATISTA LPN - 12/11/2014 13:46 CDT Source: [employer] Document Id: [id number] CDT!3 documented in this encounter Plan of Treatment Not on filedocumented as of this encounter Visit Diagnoses Not on filedocumented in this encounter Additional Health Concerns Assessment Noted Time PHQ-9 Depression Total Score: 7 06/21/2014 9:20 AM CD T documented as of this encounter
--- OUTSIDE RECORDS SUMMARY | 2021-09-05 08:00 | XMS_ITS | Encounter Summary ---
:1945 Author Organization [facility] Address [address] [place] [address] Care Team Providers Name Role Phone Unavailable Primary Care Provider Unavailable Encounter Details Date Type Department Care Team Description 01/04/2015 Hospital Encounter HX [facility] Gail Zheng M.D. [address] [id number] (Wo rk) Social History Tobacco [...] - - Height 158 cm (5' 2.21) 01/04/2015 11:13 AM HAND SAMPLE MAKER Body Mass Index - - documented in this encounter Medications at Time of Discharge Medication Sig Dispensed Refills Start Date End Date ASPIRIN ORAL Take 81 mg by mouth daily. Take 0 with food for Kiromic. documented as of this encounter Procedure Notes Andrea Malhotra RJairoN. - 01/04/2015 1:32 PM CST Capillary Blood Glucose Point of Care Capillary Blood Glucose Point of Care Entered On: 01/04/2015 13:33 HAND SAMPLE MAKER Performed On: 01/04/2015 13:32 HAND SAMPLE MAKER by ANDREA MALHOTRA RN Blood Glucose Blood Glucose Testing Reason : Other: post- stress test - patient took own blood sugar after eating snack of juice and sandwich. Stated that she felt fine. Glucose Point Of Care : 99 mg/dL ANDREA MALHOTRA RN - 01/04/2015 13:32 HAND SAMPLE MAKER Source: [employer] Document Id: [id number] HAND SAMPLE MAKER!4 SAMPLE MAKER Andrea Malhotra R.N. - 01/04/2015 1:10 PM CST Peripheral IV Peripheral IV Entered On: 01/04/2015 13:32 HAND SAMPLE MAKER Performed On: 01/04/2015 13:10 HAND SAMPLE MAKER by ANDREA MALHOTRA RN Peripheral IV Peripheral IV Assess/Intervention Grid Peripheral IV #1 Peripheral IV #2 IV Activity : Start Discontinue Removal : Catheter intact Number of Attempts : 1 Date of Insertion : 01/04/2015 HAND SAMPLE MAKER IV Site : Hand Laterality : Left Catheter Size : 22 Catheter Type : Protective Site Condition : No complications Drainage Description : Bloody Infiltration Score : 0 Phlebitis Score : 0 ANDREA MALHOTRA RN - 01/04/2015 13:31 HAND SAMPLE MAKER ANDREA MALHOTRA RN - 01/04/2015 13:31 HAND SAMPLE MAKER Source: [employer] Document Id: [id number] HAND SAMPLE MAKER!18 SAMPLE MAKER Andrea Malhotra R.N. - 01/04/2015 1:00 PM CST Capillary Blood Glucose Point of Care Capillary Blood Glucose Point of Care Entered On: 01/04/2015 13:10 HAND SAMPLE MAKER Performed On: 01/04/2015 13:00 HAND SAMPLE MAKER by ANDREA MALHOTRA RN Blood Glucose Blood Glucose Testing Reason : Other: after stress echo Glucose Point Of Care : 94 mg/dL Blood Glucose Stick Site : Finger Blood Glucose Interventions : Administered food/juice ANDREA MALHOTRA RN - 01/04/2015 13:10 HAND SAMPLE MAKER Source: [employer] Document Id: [id number] HAND SAMPLE MAKER!6 SAMPLE MAKER Andrea Malhotra R.N. - 01/04/2015 12:20 PM CST Peripheral IV Peripheral IV Entered On: 01/04/2015 13:31 HAND SAMPLE MAKER Performed On: 01/04/2015 12:20 HAND SAMPLE MAKER by ANDREA MALHOTRA RN Peripheral IV Peripheral IV Assess/Intervention Grid Peripheral IV #1 IV Activity : Start Number of Attempts : 1 Date of Insertion : 01/04/2015 HAND SAMPLE MAKER IV Site : Hand Laterality : Left Catheter Size : 22 Catheter Type : Protective Site Condition : No complications ANDREA MALHOTRA RN - 01/04/2015 13:30 HAND SAMPLE MAKER Source: [employer] Document Id: [id number] HAND SAMPLE MAKER!12 SAMPLE MAKER Annie Jones R.N. - 01/04/2015 11:45 AM CST Capillary Blood Glucose Point of Care Capillary Blood Glucose Point of Care Entered On: 01/04/2015 11:47 HAND SAMPLE MAKER Performed On: 01/04/2015 11:45 HAND SAMPLE MAKER by ANNIE JONES RN Blood Glucose Blood Glucose Testing Reason : Routine Glucose Point Of Care : 112 mg/dL (Comment: Done prior to stress echo per protocol. Pt had light breakfast, denies sx will recheck after echo [ANNIE JONES RN - 01/04/2015 11:45 HAND SAMPLE MAKER] ) Blood Glucose Stick Site : Finger ANNIE JONES RN - 01/04/2015 11:45 HAND SAMPLE MAKER Source: [employer] Document Id: [id number] HAND SAMPLE MAKER!5 SAMPLE MAKER Simona Yan M.D. - 01/04/2015 12:00 AM CST 1RPT Mrs. Adams exercised for 5.5 minutes, achieving 6.5 METS. She stopped secondary to fatigue and tiredness. Her heart rate went from 91 to 123. Her blood pressure went from 142/86 to 176/76 at peak. It continued to rise and recovery to 188/80. She had symptoms of dyspnea with upsloping ST depression. The ECG ST depression did not meet strict criteria for the diagnosis of ischemia. IMPRESSION/REPORT/PLAN 1. Nondiagnostic electrocardiogram due to symptoms and upsloping ST changes and limited exercise tolerance. 2. Limited exercise capacity. 3. Exertional dyspnea, worrisome for angina equivalent. Tam Yan M.D./gene Electronically Signed By: Simona YAN MD On: 01/04/2015 03:16 PM Source: [facility] [email or web address] Document Id: [id number] SAMPLE MAKER documented in this encounter Miscellaneous Notes Miscellaneous - Andrea Malhotra R.N. - 01/05/2015 9:57 AM CST *General Message Document Contains Addenda Addendum by GAIL VILLAR MD on 05 January 2015 14:18:23 HAND SAMPLE MAKER From: GAIL VILLAR MD To: [place] Cardiology Nurse; Sent: 01/05/2015 14:18:23 HAND SAMPLE MAKER Subject: RE: *General Message I reviewed the results. Could we please get patient scheduled with cardiology? I will put in the referral. Gail Tom From: ANDREA MALHOTRA RN ([place] Cardiology Nurse) To: GAIL VILLAR MD; Sent: 01/05/2015 09:57:02 HAND SAMPLE MAKER Subject: *General Message Hi Marcial Strange had her stress echocardiogram done yesterday. The results are available for you to review. She does not have a follow-up appt. scheduled with you. Thanks- Angie Source: [facility] POWERCHART Document Id: [id number] Miscellaneous - Conversion, Historical Provider Ser - 01/04/2015 11:59 PM HAND SAMPLE MAKER Coding Summary-Paper Based CODING DATE: 01/25/2015 FINAL [place] [facility] STATUS: * Discharged to Home or Self Care PAYOR: Medicare ADMIT DX: REASON FOR VISIT DX: FINAL DX: PRINCIPAL: R07.89 Other chest pain SECONDARY: E11.9 Type 2 diabetes mellitus without complications PROCEDURES DOCTOR NAME DATE NOTE: The code number assigned matches the documented diagnosis and / or procedure in the patient's chart. However, the narrative phrase printed from the coding software may appear abbreviated, or result in slightly different terminology. Coded By: GUERITA CHAN Date Saved: 01/25/2015 07:10 am Source: [facility] [employer] Document Id: [id number] documented in this encounter Plan of Treatment Not on filedocumented as of this encounter Procedures Procedure Name Priority Date/Time Associated Diagnosis Comme nts GLUCOSE POCT, B Routine 01/04/2015 1:33 PM Resul ts for this HAND SAMPLE MAKER procedure are i n the results section. GLUCOSE POCT, B Routine 01/04/2015 1:10 PM Resul ts for this HAND SAMPLE MAKER procedure are i n the results section. GLUCOSE POCT, B Routine 01/04/2015 12:56 PM Resul ts for this HAND SAMPLE MAKER procedure are i n the results section. GLUCOSE POCT, B Routine 01/04/2015 11:47 AM Resul ts for this HAND SAMPLE MAKER procedure are i n the results section. GLUCOSE POCT, B Routine 01/04/2015 11:41 AM Resul ts for this HAND SAMPLE MAKER procedure are i n the results section. documented in this encounter Results Glucose, POCT (01/04/2015 1:33 PM HAND SAMPLE MAKER) P athologist Signature Glucose, POCT, 99 MGDL POWERCHART B Specimen (Source) Anatomical Collection Method Collection Time Re ceived Time Location / / Volume Laterality 01/04/2015 1:33 PM HAND SAMPLE MAKER Historical Provider LAB POCT ORDERABLES-MANUAL Performing Organization Address City/State/ZIP Code Phon e Number POWERCHART Glucose, POCT (01/04/2015 1:10 PM HAND SAMPLE MAKER) P athologist Signature Glucose, POCT, 94 MGDL POWERCHART B Specimen (Source) Anatomical Collection Method Collection Time Re ceived Time Location / / Volume Laterality 01/04/2015 1:10 PM HAND SAMPLE MAKER Historical Provider LAB POCT ORDERABLES-MANUAL Performing Organization Address [facility] Code Phon e Number POWERCHART Glucose, POCT (01/04/2015 12:56 PM HAND SAMPLE MAKER) P athologist Signature Glucose, POCT, 94 70 - 139 POWERCHART B MGDL Comment: Manual Result Entry required as Clinic Meter used in Hospital setting so results will no cross interface through RALS. Performing Location: [facility] [address] [place] [address] Specimen Anatomical Collection Method Collection Time Receive d Time (Source) Location / / Volume Laterality Blood 01/04/2015 12:56 01/04/2015 PM HAND SAMPLE MAKER 3:45 PM HAND SAMPLE MAKER Gail Haas M.D. LAB POCT ORDERABLES-MAN UAL Performing Organization Address City/[facility] Code Phon e Number POWERCHART Glucose, POCT (01/04/2015 11:47 AM HAND SAMPLE MAKER) P athologist Signature Glucose, POCT, 112 MGDL POWERCHART B Specimen (Source) Anatomical Collection Method Collection Time Re ceived Time Location / / Volume Laterality 01/04/2015 11:47 AM HAND SAMPLE MAKER Narrative POWERCHART - 01/04/2015 11:47 AM HAND SAMPLE MAKER {\rtf1\[id number]\[id number]\deff0\[id number]{\fonttbl{\f0\fnil\fcharset0 Segoe UI;}} \viewkind4\uc1\pard\f0\fs20 ??Done prior to stress echo per protocol. Pt had light breakfast, denies sx ??will recheck after echo\par } Historical Provider LAB POCT ORDERABLES-MANUAL Performing Organization Address City/[facility]/ZIP Code Phon e Number POWERCHART Glucose, POCT (01/04/2015 11:41 AM HAND SAMPLE MAKER) P athologist Signature Glucose, POCT, 112 70 - 139 POWERCHART B MGDL Comment: Manual Result Entry Required as Clinic Meter used in Hospital Setting so results will not cross interface through RALS. Performing Location: [facility] [place] [address] [place] [address] Specimen Anatomical Collection Method Collection Time Receive d Time (Source) Location / / Volume Laterality Blood 01/04/2015 11:41 01/04/2015 AM HAND SAMPLE MAKER 3:41 PM HAND SAMPLE MAKER Gail Haas M.D. LAB POCT ORDERABLES-MAN UAL Performing Organization Address City/State/ZIP Code Phon e Number POWERCHART documented in this encounter Visit Diagnoses Not on filedocumented in this encounter Additional Health Concerns Assessment Noted Time PHQ-9 Depression Total Score: 7 06/21/2014 9:20 AM CD T documented as of this encounter
--- OUTSIDE RECORDS SUMMARY | 2021-09-05 08:00 | XMS_ITS | Encounter Summary ---
:1945 Author Organization [facility] Address [address] [place] [address] Care Team Providers Name Role Phone Unavailable Primary Care Provider Unavailable Encounter Details Date Type Department Care Team Description 01/26/2015 - Hospital Encounter HX RST Mao Ray, 01/27/2015 Lee, Ph.D. [address] [place] [phone] (Wo rk) Social History Tobacco Use Types [...] Sign Reading Time Taken Comments Blood Pressure 132/65 01/27/2015 9:45 NIBP - Value fr om AM DIRECTOR OF CONSTRUCTION [employer]. Pulse 72 01/27/2015 9:45 Value from Gretchen tplus. AM DIRECTOR OF CONSTRUCTION Temperature - - Respiratory Rate 16 01/27/2015 9:30 Value from Dinorah rtplus. AM DIRECTOR OF CONSTRUCTION Oxygen Saturation - - Inhaled Oxygen - - Concentration Weight 83 kg (182 lb 15.7 01/27/2015 8:00 Value from C hartplus. oz) AM DIRECTOR OF CONSTRUCTION Height - - Body Mass Index 33.25 01/26/2015 7:48 AM DIRECTOR OF CONSTRUCTION documented in this encounter Medications at Time of Discharge Medication Sig Dispensed Refills Start Date End Date ASPIRIN ORAL Take 81 mg by mouth 0 03/02/2012 daily. Take with food for heart health. nitroglycerin (NITROSTAT) Place under the 0 12/11 /2015 07/29/2018 0.4 mg SL tablet tongue as needed. documented as of this encounter Plan of Treatment Not on filedocumented as of this encounter Procedures Procedure Name Priority Date/Time Associated Comments Diagnosis GLUCOSE POCT, B Routine 01/27/2015 6:26 AM Resul ts for this [employer] CONSTRUCTION procedure are i n the results section. ECG Routine 01/27/2015 5:23 AM Results for this [employer]OR [employer] CONSTRUCTION procedure are i n the results section. CBC WITHOUT Routine 01/27/2015 4:11 AM Results for this DIFFERENTIAL, B [employer] OF CONSTRUCTION procedure ar e in the results section. CREATININE WITH Routine 01/27/2015 4:11 AM Resul ts for this EGFR, S/P [employer]OR OF CONSTRUCTION procedure are i n the results section. GLUCOSE POCT, B Routine 01/26/2015 9:30 PM Resul ts for this [employer]OR OF CONSTRUCTION procedure are i n the results section. ACT, POCT, B Routine 01/26/2015 1:50 PM Results for this [employer]OR OF CONSTRUCTION procedure are i n the results section. GLUCOSE POCT, B Routine 01/26/2015 11:44 AM Resul ts for this DIRECTOR OF CONSTRUCTION procedure are i n the results section. documented in this encounter Results (ABNORMAL) Glucose, POCT (01/27/2015 6:26 AM DIRECTOR OF CONSTRUCTION) [facility] gist Method Time Signature Glucose, POCT, 145 (H) 70 - 140 [facility] B MG/DL [facility] [place] Last Intake > 4 hours [facility] Specimen Anatomical Collection Method Collection Time Receive d Time (Source) Location / / Volume Laterality 01/27/2015 6:26 01/27/2015 AM DIRECTOR OF CONSTRUCTION 6:26 AM DIRECTOR OF CONSTRUCTION Historical Provider LAB POCT ORDERABLES-MANUAL Performing Organization Address City/State/ZIP Code Phon e Number [facility] - [address] [place], [place] [address] [place] ECG 12 Lead (01/27/2015 5:23 AM DIRECTOR OF CONSTRUCTION) Specimen (Source) Anatomical Collection Method Collection Time Re ceived Time Location / / Volume Laterality 01/27/2015 5:23 AM DIRECTOR OF CONSTRUCTION [facility] - 01/27/2015 6:34 AM DIRECTOR OF CONSTRUCTION [id number] 05:23 VENTRICULAR RATE 62 Normal sinus rhythm Nonspecific ST and T wave abnormality When compared with ECG of 26-JAN-2015 08 :09, No significant change was found [id number]^ADONAY SUÁREZ^RULA Law Procedure Note Rula Jacobsen M.B., Lee Elkins - 04/17 [id number] 05:23 VENTRICULAR RATE 62 Normal sinus rhythm Nonspecific ST and T wave abnormality When compared with ECG of 26-JAN-2015 08 :09, No significant change was found [id number]^ADONAY SUÁREZ^RULA Law Nubia Castañeda M.D., Ph.D. ECG ORDERABLES Performing Organization Address City/State/ZIP Code Phon e Number HX [facility] [address] [place] [address], U SA Creatinine with Estimated GFR (MDRD) (01/27/2015 4:11 AM DIRECTOR OF CONSTRUCTION) P athologist Signature eGFR-Black/Afr >60 >60 [facility] ican Bahamian ML/MIN/BSA [facility] [place] Creatinine, S 0.9 0.6 - 1.1 [facility] MG/DL [facility] [place] eGFR >60 >60 [facility] Non-Black/Afri ML/MIN/BSA LABORATORIES - can Bahamian [place] Specimen Anatomical Collection Method Collection Time Receive d Time (Source) Location / / Volume Laterality 01/27/2015 4:11 01/27/2015 AM DIRECTOR OF CONSTRUCTION 4:11 AM DIRECTOR OF CONSTRUCTION Nubia Castañeda M.D., Ph.D. LAB BLOOD ADD-ON Performing Organization Address City/State/ZIP Code Phon e Number [facility] - [address] [place], [place] [address] [place] (ABNORMAL) CBC without Differential (01/27/2015 4:11 AM DIRECTOR OF CONSTRUCTION) Patholo gist Method Time Signature Hemoglobin 11.3 (L) 12.0 - [facility] 15.5 G/DL [facility] [place] Hematocrit 34.6 (L) 34.9 - [facility] 44.5 % [facility] [place] RBC Distrib 14.0 11.9 - [facility] Width 15.5 % [facility] [place] Platelet Count 205 150 - 450 [facility] X10(9)/L [facility] [place] Leukocytes 8.1 3.5 - [facility] 10.5 LABORATORIES - X10(9)/L [place] Erythrocytes 3.80 (L) 3.90 - [facility] 5.03 LABORATORIES - X10(12)/L [place] MCV 91.1 81.6 - [facility] 98.3 FL [facility] [place] Specimen Anatomical Collection Method Collection Time Receive d Time (Source) Location / / Volume Laterality 01/27/2015 4:11 01/27/2015 AM DIRECTOR OF CONSTRUCTION 4:11 AM DIRECTOR OF CONSTRUCTION Nubia Castañeda M.D., Ph.D. LAB BLOOD ADD-ON Performing Organization Address City/[facility]/ZIP Code Phon e Number [facility] - [address] [place] [address] [place] (ABNORMAL) Glucose, POCT (01/26/2015 9:30 PM DIRECTOR OF CONSTRUCTION) [facility] gist Method Time Signature Glucose, 186 (H) 70 - 140 [facility] POCT, B MG/DL [facility] [place] Sample Site, Capillary [facility] Blood Gas, LABORATORIES - POCT [place] Last Intake 3-4 hours [facility] Specimen Anatomical Collection Method Collection Time Receive d Time (Source) Location / / Volume Laterality 01/26/2015 9:30 01/26/2015 PM DIRECTOR OF CONSTRUCTION 9:30 PM DIRECTOR OF CONSTRUCTION Historical Provider LAB POCT ORDERABLES-MANUAL Performing Organization Address City/[facility]/ZIP Code Phon e Number [facility] - [address] [place] [address] [place] ACT (Activated Clotting Time), POCT (01/26/2015 1:50 PM DIRECTOR OF CONSTRUCTION) P athologist Signature Activated 124 84 - 139 [facility] Clotting Time, SEC LABORATORIES - POCT [place] Specimen Anatomical Collection Method Collection Time Receive d Time (Source) Location / / Volume Laterality 01/26/2015 1:50 01/26/2015 PM DIRECTOR OF CONSTRUCTION 1:50 PM DIRECTOR OF CONSTRUCTION Historical Provider LAB POCT ORDERABLES - DEVICE Performing Organization Address City/[facility] Phon e Number [facility] - [address] [place] [address] [place] Glucose, POCT (01/26/2015 11:44 AM DIRECTOR OF CONSTRUCTION) [facility] gist Method Time Signature Last Intake > 4 hours [facility] Glucose, 113 70 - 140 [facility] POCT, B MG/DL [facility] [place] Sample Site, Capillary [facility] Blood Gas, LABORATORIES - POCT [place] Specimen Anatomical Collection Method Collection Time Receive d Time (Source) Location / / Volume Laterality 01/26/2015 11:44 01/26/2015 AM DIRECTOR OF CONSTRUCTION 11:44 AM DIRECTOR OF CONSTRUCTION Historical Provider LAB POCT ORDERABLES-MANUAL Performing Organization Address City/State/ZIP Code Phon e Number [facility] - [address] [place], [place] [address] [place] documented in this encounter Visit Diagnoses Not on filedocumented in this encounter Additional Health Concerns Assessment Noted Time PHQ-9 Depression Total Score: 7 06/21/2014 9:20 AM CD T documented as of this encounter
--- OUTSIDE RECORDS SUMMARY | 2021-09-05 08:00 | XMS_ITS | Encounter Summary ---
:1945 Author Organization [facility] Address [address] [place] [address] Care Team Providers Name Role Phone Unavailable Primary Care Provider Unavailable Encounter Details Date Type Department Care Team Description 07/29/2016 Hospital Encounter HX [facility] Jayne Varela, C.N.P. [address] [place] [address] (Wo rk) Social History Tobacco Use Types [...] encounter Nursing Notes Andrea Malhotra R.N. - 08/07/2016 10:46 AM CDT tired Phone call received from patient stating she has been more tired since last week. Napping also.No increase in SOB or chest pain. Suggested that she call her primary provider- Suresh Patel at [place]- and update her. Encouraged to call back if she has any other concerns. Stated that she would. Electronically Signed By: ANDREA MALHOTRA RN On: 08/07/2016 10:48 AM Modified by and Electronically Signed by: ANDREA MALHOTRA RN On: 08/07/2016 10:48 AM Source: [employer] Document Id: [id number] documented in this encounter Miscellaneous Notes Miscellaneous - Conversion, Historical Provider Ser - 07/29/2016 11:59 PM CDT Coding Summary-Paper Based CODING DATE: 08/01/2016 FINAL [facility] STATUS: * Discharged to Home or Self Care PAYOR: Medicare ADMIT DX: REASON FOR VISIT DX: FINAL DX: PRINCIPAL: Z12.31 Encounter for screening mammogram for malignant neoplasm of breast SECONDARY: PROCEDURES DOCTOR NAME DATE NOTE: The code number assigned matches the documented diagnosis and / or procedure in the patient's chart. However, the narrative phrase printed from the coding software may appear abbreviated, or result in slightly different terminology. Coded By: MALLORIE WARD Date Saved: 08/01/2016 10:18 am Source: [employer] Document Id: [id number] documented in this encounter Plan of Treatment Not on filedocumented as of this encounter Visit Diagnoses Not on filedocumented in this encounter Additional Health Concerns Assessment Noted Time PHQ-9 Depression Total Score: 7 06/21/2014 9:20 AM CD T documented as of this encounter
--- OUTSIDE RECORDS SUMMARY | 2021-09-05 08:00 | XMS_ITS | Encounter Summary ---
:1945 Author Organization [facility] Address [address] [place] [address] Care Team Providers Name Role Phone Unavailable Primary Care Provider Unavailable Encounter Details Date Type Department Care Team Description 02/22/2015 Hospital Encounter HX [facility] M[facility] [address] [place] [phone] (Wo rk) Social History Tobacco Use [...] Sign Reading Time Taken Comments Blood Pressure 122/58 02/22/2015 9:24 AM ROOF TILER Pulse 65 02/22/2015 9:24 AM ROOF TILER Temperature - - Respiratory Rate 16 02/22/2015 9:24 AM ROOF TILER Oxygen Saturation - - Inhaled Oxygen Concentration - - Weight 86.4 kg (190 lb 7.6 oz) 02/22/2015 9:24 AM ROOF TILER Height 158 cm (5' 2.21) 02/22/2015 9:24 AM ROOF TILER Body Mass Index 34.61 02/22/2015 9:24 AM ROOF TILER documented in this encounter Medications at Time [...] encounter Progress Notes Gail Cortez M.D. - 02/22/2015 1:04 PM CST Clinic Full Note Document Contains Addenda Addendum by GAIL VILLAR MD on 25 February 2015 13:08:47 ROOF TILER Patient also reports that her rosacea has been worse recently. Face has increased erythema and some papules over the medial cheeks and chin. Referral placed for dermatology to further address. Modified by and Electronically Signed by: GAIL VILLAR MD On: 02/25/2015 01:09 PM CHIEF COMPLAINT/REASON FOR VISIT Follow up stent placement. HISTORY OF PRESENT ILLNESS Archie presents today for followup on recent stent placement. She was started on a beta rich bycardiology. She has not had any side effects with that. She does note some mornings she feels a little sick but it only lasts 5 minutes. There is some associated sensation of feeling warm. It occurs before or after eating. No vomiting. She has tried spreading up her pills to see if that helps. It has been ongoing for a few weeks and she thinks it started a little before the stent. Patient notes that she can still feel something in her chest at times. Shoulder pain is better. Shortness of breath is not as significant as before. Going up and downstairs is much better. She has been attending cardiac rehab which she enjoys. Blood sugars have been good. MEDICATIONS aspirin 81 mg oral tablet, 81 [...] mg, 1 tab(s), PO, 2xDay, 3 refills metoprolol succinate 25 mg oral tablet, extended [...] Anxiety disorder NOS Coronary Artery Disease (CAD) [place] Vessel Hyperlipidemia/Dyslipidemia Hypothyroidism NOS NIDDM [non-insulin dependent [...] Appendectomy (1959), section. SOCIAL HISTORY Date Time: 02/22/2015 09:24 Tobacco: Smoking Status: Never smoker Exposure: Care [...] REVIEW As per HPI. VITAL SIGNS T: 36 ??C (Core) HR: 65 RR: 16 BP: 122 / 58 SpO2: 99% HT: 158 cm WT: 86.4 kg BMI: 34.61 PHYSICAL EXAMINATION General: Alert and oriented. No acute distress. Neck: Supple. No lymphadenopathy. No carotid bruits. Cardiovascular exam: Regular rate and rhythm. Normal S1 and S2. Soft 2/6 murmur over the aortic area. Lungs: Clear to auscultation bilaterally. Extremities: No pedal edema. IMPRESSION/REPORT/PLAN 1. Coronary Artery Disease (CAD) [place] Vessel Patient seems to be doing better from a cardiac standpoint. She is a difficult historian. She will continue cardiac rehab. She is tolerating the beta rich. I discussed a little more how she could divide her medications to decrease the stomach upset. She thinks it started before the stent however it is possible it is due to the Plavix. We will continue to monitor. Ordered: OV Est Pt Level 4 - 60765 - 25 min 2. NIDDM [non-insulin dependent diabetes mellitus] Patient reports that her blood sugars have been good. She takes the glipizide in the morning and the metformin in the evening. She was taking the glipizide first but I advised her to take the levothyroxine first followed by the glipizide. A1c is due in May. Ordered: OV Est Pt Level 4 - [address]28 - 25 min 28 minutes were spent with the patient today with over half of the time counseling patient and answering her questions. Electronically Signed By: GAIL VILLAR MD On: 02/25/2015 01:08 PM Source: [facility] POWERCHART Document Id: [id number] TILER documented in this encounter Miscellaneous Notes Miscellaneous - Gail Cortez M.D. - 02/22/2015 10:16 AM ROOF TILER Ambulatory Patient Summary [address] [place] [id number] Visit Information Name: ARCHIE BAZAN [facility] Number: [id number] Current Date: 02/22/2015 10:16:38 Physicians Attending Provider: GAIL VILLAR MD Primary Care Provider: GAIL VILLAR MD ARCHIE BAZAN PAU has been given the following list [...] oral tablet, extended release) 1 Tablet(s), Oral, once a day with evening meal This is a CHANGE metoprolol (metoprolol succinate 25 mg oral tablet, extended release) 0.5 Tablet(s), Oral, once a day Stop Taking the Following Medications: Medication list as of 02-22-15 10:16 Attention: If you have any medications at [...] Electronically Signed By: GAIL VILLAR MD Signed On:22-FEB-2015 10:16:23 Your Allergies & Intolerances Substance Reaction Symptoms [...] Stress Test Active Coronary Artery Disease (CAD) [place] Vessel Active Your Upcoming Appointments Date Time Location Provider 02/23/2015 11:00 [facility] Rehab Srvs [facility] Cardio/Pulm Therapist 03/02/2015 08:45 [facility] Coin Purse Assembler [address] Attention: Contact your local Clinic if further [...] if you dont have one. Go to [email or web address] and click on Create Your Account. Then, follow the directions to complete the online form. Youll be asked for your [facility] number which you can find at the top of this document. Your Goals/Additional instructions: Source: [facility] POWERCHART Document Id: [id number] TILER Miscellaneous - Gail Cortez M.D. - 02/22/2015 10:16 AM ROOF TILER Ambulatory Discharge Medication List [place] - [address] [id number] Visit Information Name: ARCHIE BAZAN [facility] Number: [id number] Visit Date: 02/22/2015 10:16:36 Attending Provider: GAIL VILLAR MD Primary Care [...] oral tablet, extended release) 1 Tablet(s), Oral, once a day with evening meal This is a CHANGE metoprolol (metoprolol succinate 25 mg oral tablet, extended release) 0.5 Tablet(s), Oral, once a day Stop Taking the Following Medications: Medication list as of 02-22-15 10:16 Attention: If you have any medications at [...] Electronically Signed By: GAIL VILLAR MD Signed On:22-FEB-2015 10:16:23 Additional Information: Source: [facility] POWERCHART Document Id: [id number] TILER Miscellaneous - Jie Thomason, L.P.N. - 02/22/2015 9:24 AM CST Adult Wedding Transportation Driver Intake/History Adult Wedding Transportation Driver Intake/History Entered On: 02/22/2015 9:26 ROOF TILER Performed On: 02/22/2015 9:24 ROOF TILER by JIE THOMASON LPN Intake Chief Complaint : Follow up stent placement. Temperature Core : 36 DegC(Converted to: 96.8 DegF) (LOW) Peripheral Pulse Rate : 65 /min Respiratory Rate : 16 /min Systolic Blood Pressure : 122 mmHg Diastolic Blood Pressure : 58 mmHg NIBP Mean : 79 mmHg BP [...] 1.95 Body Mass Index : 34.61 kg/m2 JIE THOMASON LPN - 02/22/2015 9:24 ROOF TILER General Info Information Given By : Patient Preferred Communication Mode : Verbal Languages : Tuvaluan Is Patient Female and 13-50 no hysterectomy : No JIE THOMASON LPN - 02/22/2015 9:24 ROOF TILER Subjective Pain Symptoms : No JIE THOMASON LPN - 02/22/2015 9:24 ROOF TILER Dependent Habits Exposure to Tobacco Smoke : Care provider denies smoking in home, Other: never Smoking Status : Never smoker Tobacco 2A : No Tobacco Use/Currently Using : No Tobacco Use/Last 30 Days : No Tobacco Use/Last 12 months : No Alcohol Use : No JIE THOMASON LPN - 02/22/2015 9:24 ROOF TILER Caffeine Use Grid Caffeine Use : Past Type : Coffee, Soft drinks Frequency : Occasionally Amount : 1 cup per week JIE THOMASON LPN - 02/22/2015 9:24 ROOF TILER Recreational Drug Use Grid Drug Use : None JIE THOMASON LPN - 02/22/2015 9:24 ROOF TILER Source: [facility] [email or web address] Document Id: [id number] ROOF TILER!43 TILER documented in this encounter Plan of Treatment Not on filedocumented as of this encounter Visit Diagnoses Not on filedocumented in this encounter Additional Health Concerns Assessment Noted Time PHQ-9 Depression Total Score: 7 06/21/2014 9:20 AM CD T documented as of this encounter
--- OUTSIDE RECORDS SUMMARY | 2021-09-05 08:00 | XMS_ITS | Encounter Summary ---
:1945 Author Organization [facility] Address [address] [place] [address] Care Team Providers Name Role Phone Unavailable Primary Care Provider Unavailable Encounter Details Date Type Department Care Team Description 07/04/[address] [facility] Gail gamez M.D. [address] [place] [phone] (Wo rk) Social History Tobacco Use [...] Reading Time Taken Comments Blood Pressure 120/80 07/04/2015 2:20 PM CDT Pulse - - Temperature - - Respiratory Rate - - Oxygen Saturation - - Inhaled Oxygen Concentration - - Weight 85.7 kg (188 lb 15 oz) 07/04/2015 2:20 PM CDT Height 161 cm (5' 3.39) 07/04/2015 2:20 PM CDT Body Mass Index 33.06 07/04/2015 2:20 PM CDT documented in this encounter Medications [...] documented as of this encounter Progress Notes Dianne London R.N. - 07/04/2015 2:20 PM CDT Medicare Wellness Visit Document Has Been Updated Medicare Wellness Visit Entered On: 07/04/2015 14:39 CDT Performed On: 07/04/2015 14:20 CDT by DIANNE LONDON RN Health Assessment Med [facility] Reason for visit : Subsequential Annual Wellness Visit Languages : Wallisian Systolic Blood Pressure : 120 mmHg Diastolic Blood Pressure : 80 mmHg BP Location : Left upper extremity Blood Pressure Cuff Size : Large Weight Source : Standing scale Height : 161 cm(Converted to: 5 ft 3 inch(es), 63 inch(es)) Actual Weight : 85.7 kg(Converted to: 188 lb 15 oz) Body Mass Index : 33.06 kg/m2 Clinic BSA : 1.96 DIANNE LONDON RN - 07/04/2015 14:20 CDT Subjective Seat Belt Use : Yes Cardiovascular Symptoms : None, Other: stent placement in January 2015 Respiratory Symptoms : Difficulty breathing with activity, Other: occassionally much improved since the stent placement Known Obstructive Sleep Apnea : No - NOT diagnosed with JUAN GI Symptoms : None, Other: occssional incontinence Musculoskeletal Symptoms : Joint stiffness, Joint swelling, Pain, Other: occassionally the right knee and the left shoulder chiropractor has worked on this Skin Symptoms : Rash, Ulcers/Lesions, Other: callous on the feet also spurs on the top of her feet history of rosacea Neurological Symptoms : Numbness, Tingling, Other: right leg near the knee Eye Symptoms : No visual changes, Other: last eye exam 7-9-15 Hours of Sleep : 7 HR Visual Acuity : Glasses Symptoms : Difficulty hearing in noisy environments Mouth and Throat Symptoms : Other: last dental appointment about 4 months ago and she goes every 6months DIANNE LONDON RN - 07/04/2015 14:45 CDT Pain Symptoms : No DIANNE LONDON RN - 07/04/2015 14:20 CDT JUAN Assessment Do you have high blood pressure or have you been told to take medication for high blood pressure? : Yes Frequency of Snoring HTN : Occasionally (4-8 times per year) Frequency of Gasping, Choking, Snorting HTN : Never Total Number of Historical Features HTN : 0 Neck Circumference - JUAN - HTN : 40/41 Total Sleep Apnea Clinical Score HTN Calc : 8 SURYADIANNE ANUEL GIRARD - 07/04/2015 14:45 CDT Allergy Latex Reaction : No Latex Hives/Itch : No Latex Congestion/Eye Irr/Breathing : No Latex Symptom Progression : No Latex Previous Test : No DIANNE LONDON RN - 07/04/2015 14:45 CDT (As Of: 07/04/2015 16:01:30 CDT) Allergies (Active) azithromycin Estimated Onset Date: Unspecified ; Created By: PETRA RUSSELL LPN; Reaction Status: Active ; Category: Drug ; Substance: azithromycin ; Type: Allergy ; Updated By: PETRA RUSSELL LPN; Reviewed Date: 07/04/2015 14:48 CDT Benicar Estimated Onset Date: Unspecified ; Created By: PETRA RUSSELL LPN; Reaction Status: Active ; Category: Drug ; Substance: Benicar ; Type: Allergy ; Updated By: PETRA RUSSELL LPN; Reviewed Date: 07/04/2015 14:48 CDT Medication Management Med Well How do you set up meds : Without help On how many days over the past week did you forget to take 1 or more medications as prescribed? : 0 Med Well Meds additional comment : refills from the [facility]-Uses a pill traffic and transport planner DIANNE LONDON RN - 07/04/2015 14:45 CDT Medication List (As Of: 07/04/2015 16:01:30 CDT) Prescription/Discharge Order ALPRAZolam : ALPRAZolam ; Status: Prescribed ; Ordered As Mnemonic: Xanax 0.5 mg oral tablet ; Simple Display Line: 0.5 mg, 1 tab(s), PO, q8hr, Take for anxiety., PRN: Anxiety, 25 tab(s), 1 Refill(s) ; Ordering Provider: GAIL BONILLA MD; Catalog Code: ALPRAZolam ; Order Dt/Tm: 04/05/2015 06:01:29 ; Comment: kendy metoprolol : metoprolol ; Status: Prescribed ; Ordered As Mnemonic: metoprolol succinate 25 mg oral tablet, extended release ; Simple Display Line: 12.5 mg, 0.5 tab(s), PO, Daily, 45 tab(s), 3Refill(s) ; Ordering Provider: ROMI LEMUS MD; Catalog Code: metoprolol ; Order Dt/Tm: 02/05/2015 14:35:21 atorvastatin : atorvastatin ; Status: Prescribed ; Ordered As Mnemonic: atorvastatin 40 mg oral tablet ; Simple Display Line: 40 mg, 1 tab(s), PO, Bedtime, 90 tab(s), 3 Refill(s) ; Ordering Provider: ROMI LEMUS MD; Catalog Code: atorvastatin ; Order Dt/Tm: 02/05/2015 14:34:23 clindamycin topical : clindamycin topical ; Status: Prescribed ; Ordered As Mnemonic: clindamycin 1% topical gel ; Simple Display Line: 1 shauna, Topical, 2xDay, rosacea, 30 gm, 3 Refill(s) ; Ordering Provider: GAIL VILLAR MD; Catalog Code: clindamycin topical ; Order Dt/Tm: 07/24/2014 10:38:21 aspirin : aspirin ; Status: Prescribed ; Ordered As Mnemonic: aspirin 81 mg oral tablet ; Simple Display Line: 81 mg, 1 tab(s), PO, Daily, Take with food for heart health., 30 tab(s) ; Ordering Provider: VICKEY HOLT DNP, CARDIAC CATHETERIZATION TECHNOLOGIST; Catalog Code: aspirin ; Order Dt/Tm: 03/02/2012 17:14:07 metFORMIN : metFORMIN ; Status: Prescribed ; Ordered As Mnemonic: metFORMIN 500 mg oral tablet, extended release ; Simple Display Line: 1,000 mg, 2 tab(s), PO, Daily, with evening meal, 180 tab(s), 3 Refill(s) ; Ordering Provider: GAIL VILLAR MD; Catalog Code: metFORMIN ; Order Dt/Tm: 03/29/2015 14:12:15 glipiZIDE : glipiZIDE ; Status: Prescribed ; Ordered As Mnemonic: glipiZIDE 5 mg oral tablet ; Simple Display Line: 5 mg, 1 tab(s), PO, 2xDay, for 90 day(s), 30 minutes before breakfast, 180 tab(s), 3 Refill(s) ; Ordering Provider: GAIL VILLAR MD; Catalog Code: glipiZIDE ;Order Dt/Tm: 03/30/2015 06:49:38 levothyroxine : levothyroxine ; Status: Prescribed ; Ordered As Mnemonic: levothyroxine 75 mcg (0.075 mg) oral tablet ; Simple Display Line: 75 mcg, 1 tab(s), PO, Daily, for thyroid replacement, 90 tab(s), 3 Refill(s) ; Ordering Provider: GAIL VILLAR MD; Catalog Code: levothyroxine ; Order Dt/Tm: 01/04/2015 14:46:27 Home Meds clopidogrel : clopidogrel ; Status: Documented ; Ordered As Mnemonic: Plavix 75 mg oral tablet ; Simple Display Line: 75 mg, 1 tab(s), PO, Daily, heart stop date 01/27/2016, 30 tab(s), 11 Refill(s) ; Catalog Code: clopidogrel ; Order Dt/Tm: 02/01/2015 12:42:17 Histories Family History (As Of: 07/04/2015 16:01:31 CDT) Daughter: Relation: Daughter ; Gender: Female ; Nomenclature: Diabetes mellitus ; Value: Positive Nomenclature: Migraine ; Value: Positive Mother: Relation: Mother ; Gender: Female ; ; Age at : 50 Years ; Cause of : Breast cancer Nomenclature: CA - Breast cancer ; Value: Positive Father: Relation: Father ; Gender: Male ; ; Age at : 68 Years ; Cause of : CAD, Lung cancer Nomenclature: CA - Lung cancer ; Value: Positive Nomenclature: Coronary artery disease ; Value: Positive Brother: Relation: Brother ; Gender: Male ; ; Age at : 67 Years ; Cause of : Brain aneurysm Nomenclature: Diabetes mellitus ; Value: Positive Nomenclature: CA - Cancer of prostate ; Value: Positive Nomenclature: Aneurysm ; Value: Positive Brother: Relation: Brother ; Gender: Male ; Nomenclature: Diabetes mellitus ; Value: Positive (As Of : 07/04/2015 16:01:31 CDT) - Past Medical History - Procedure History (As Of: 07/04/2015 16:01:31 CDT) Anesthesia Minutes: 0 ; Procedure Name: section ; Procedure Minutes: 0 ; Comments: 03/19/2010 16:23 - PETRA RUSSELL LPN Times [employer] 1964, 1968 Procedure Dt/Tm: 02/16/1986 ; Anesthesia Minutes: 0 ; Procedure Name: Biopsy of breast ; Procedure Minutes: 0 ; Comments: 09/24/2010 11:37 - VICKEY HOLT DNP, CARDIAC CATHETERIZATION TECHNOLOGIST date unknown ; Last Reviewed Dt/Tm: 02/16/1986 00:00:00 [employer]ET [employer]ER Procedure Dt/Tm: 1959 ; Anesthesia Minutes: 0 ; Procedure Name: Appendectomy ; Procedure Minutes: 0 ; Last Reviewed Dt/Tm: 06/05/1959 00:00:00 CDT Procedure Dt/Tm: 01/03/2009 ; Anesthesia Minutes: 0 ; Procedure Name: Colonoscopy ; Procedure Minutes: 0 ; Comments: 09/18/2010 09:23 - JOHN CONCEPCION LPN WNL ; Last Reviewed Dt/Tm: 01/03/2009 00:00:00 BASKET WE[employer]ER Procedure Dt/Tm: 07/06/2002 ; Anesthesia Minutes: 0 ; Procedure Minutes: 0 ; Last Reviewed Dt/Tm: 07/06/2002 00:00:00 CDT Procedure Dt/Tm: 03/22/2001 ; Anesthesia Minutes: 0 ; Procedure Minutes: 0 ; Last Reviewed Dt/Tm: 03/22/2001 00:00:00 BASKET WEAVER Procedure Dt/Tm: 06/14/1998 ; Anesthesia Minutes: 0 ; Procedure Minutes: 0 ; Last Reviewed Dt/Tm: 06/14/1998 00:00:00 CDT Procedure Dt/Tm: 01/04/2015 ; Anesthesia Minutes: 0 ; Procedure Name: Exercise stress echocardiography ; Procedure Minutes: 0 ; Last Reviewed Dt/Tm: 01/04/2015 00:00:00 BASKET WEAVER Dependent Habits Exposure to Tobacco Smoke : Care provider denies smoking in home, Other: never Smoking Status : Never smoker Tobacco 2A : No Tobacco Use/Currently Using : No Tobacco Use/Last 30 Days : No Tobacco Use/Last 12 months : No Alcohol Use : No DIANNE LONDON RN - 07/04/2015 14:45 CDT Caffeine Use Grid Caffeine Use : Past Type : Coffee Frequency : Occasionally Amount : 2 cup per week Comments (Comment: decaf [DIANNE LONDON RN - 07/04/2015 14:45 CDT] ) DIANNE LONDON RN - 07/04/2015 14:45 CDT Recreational Drug Use Grid Drug Use : None DIANNE LONDON RN - 07/04/2015 14:45 CDT Psychosocial Domestic Abuse Concerns : None Marital Status : Years of Marriage : 50 years Concerns About Family Members at Home : No Number of Children : 2 children 5 grandchildren 3 great grandchildren Emotional Support Available : Yes Financial Concerns : No 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 [employer]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 Education : High School Graduate DIANNE LONDON RN - 07/04/2015 14:45 CDT PHQ-9 Little interest or pleasure in doing things : Not at all Feeling down, depressed, or hopeless : Not at all Trouble falling or staying asleep, or sleeping too much : Not at all Feeling tired or having little energy : Not at all Poor appetite or overeating : More than half the days Feeling bad about yourself or that you are a failure : Not at all Trouble concentrating on things : Not at all Moving or speaking slowly; restless or fidgety : Not at all Thoughts that you would be better off /hurting self : Not at all PHQ-9 Calculated Score : 2 Problems make work, home, or dealing with others : Not difficult at all DIANNE LONDON RN - 07/04/2015 14:20 CDT Mini-Cog Exam [facility] Mini Cog Recall : 3 Med [facility] Mini Cog Test Result : Negative Concerns : No concerns. MMSE=31. DIANNE LONDON RN - 07/04/2015 14:[address] [facility] Date of last eye exam : 08/30/[address] [facility] Glaucoma screen : Yes Corrective Lenses : Glasses Eyes, Both with Correction : 20/20 Comments : right eye 20/40 left eye 20/25 DIANNE LONDON RN - 07/04/2015 14:45 CDT Nutrition Nutrition Risk Factors by History Adult : None Home Diet : Regular, Diabetic Meal Pattern : 2-3 meals per day Feeding Ability : Complete independence Eating Difficulties : None Appetite : Excellent DIANNE LONDON RN - 07/04/2015 14:45 CDT Functional Living Situation : Home independently Current Daily Living Assistance : None Home Equipment : None Mobility Assistance Prior to Admission : Independent Rising From Chair Fall Risk Hendrich : Able to rise in a single movement, no loss of balance with steps Gait : Steady Timed Up and Go Test Time : 10 second(s) Home Environment Note : two story home Sensory Deficits : None Med Well Corrective Devices : Glasses Med CL3VER Safety Comment : no falls in the past year Med CL3VER Safety Vision Hearing Mobility : Yes DIANNE LONDON RN - 07/04/2015 14:45 CDT Advance Directive Advanced Directives : No Advance Directive Additional Information : No Advance Directive Comments : proviided a copy on an advanced directive and she will be bringing itadrien DIANNE LONDON RN - 07/04/2015 14:45 CDT Exercise Days/Wk of Moderate or Greater Exercise : 2 Minutes/Day Engaged in Activity : 50 Total Minutes Exercise/Week : 100 Exercise Type : Other: goes to Cardiac rehab DIANNE LONDON RN - 07/04/2015 14:45 CDT Education General Patient Education [employer] Topics : Advance directives, Allergies, Exercise, Immunizations, Importance of follow-up visits, Medication dosage, route, scheduling, Medication generic/brand names, purpose, action, Nutrition/Diet, Oral care, Plan of care, Printed materials, Safety, bathtub, Safety, fall DIANNE LONDON RN - 07/04/2015 16:06 CDT Learning Style Preference Adult Grid Patient : Printed materials, Demonstration, Verbal explanation Family : None DIANNE LONDON RN - 07/04/2015 14:45 CDT Referrals/Recommendations [facility] Lifestyle goals/modificiations : Continues to be very active with her quilting, caring for her great grand daughter a 4 year old 2 times a week. She is attending Cardiac rehab twice a weekand walking outdoors in between. Mammogram will be coming due in July she will schedule with registration. Eye exam will be due in August. She states that when her eyes become tired and she closes theright eye she sees double out of the left eye. This has not really been explained to her and she isworried about it. DIANNE LONDON RN - 07/04/2015 16:06 CDT Med Well Treat Plan Recomm Provider F/U : She will follow up for her routine diabetic follow ups and mammogram in July. One other concern of hers at this visit was that she had some nightmares in thepast before her cardiac procedure in the months leading up to it that she could not explain. Since the procedure however they have not come back. She was seeing things in her sleep omlu not while awake. DIANNE LONDON RN - 07/04/2015 16:15 CDT Preventative Screening : Preventative screening checklist reviewed and updated, Patient provided written preventative screening checklist DIANNE LONDON RN - 07/04/2015 14:45 CDT [facility] Document Id: [id number] CDT!3 documented in this encounter Plan of Treatment Not on filedocumented as of this encounter Visit Diagnoses Not on filedocumented in this encounter Additional Health Concerns Assessment Noted Time PHQ-9 Depression Total Score: 7 06/21/2014 9:20 AM CD T documented as of this encounter
--- OUTSIDE RECORDS SUMMARY | 2021-09-05 08:00 | XMS_ITS | Encounter Summary ---
:1945 Author Organization [facility] Address [address] [place] [address] Care Team Providers Name Role Phone Unavailable Primary Care Provider Unavailable Encounter Details Date Type Department Care Team Description 12/18/2014 Hospital Encounter HX [facility] ME Olivia Vidales, LOSS PREVENTION SPECIALIST, C.N.P. [address] [place], [place] [address] (Wo rk) Social History [...] Sign Reading Time Taken Comments Blood Pressure 140/69 12/18/2014 3:19 PM RESERVATIONS SALES AGENT Pulse 66 12/18/2014 3:19 PM RESERVATIONS SALES AGENT Temperature - - Respiratory Rate 16 12/18/2014 3:19 PM RESERVATIONS SALES AGENT Oxygen Saturation - - Inhaled Oxygen Concentration - - Weight - - Height 158 cm (5' 2.21) 12/18/2014 3:19 PM RESERVATIONS SALES AGENT Body Mass Index - - documented in this encounter Medications at Time of Discharge Medication Sig Dispensed Refills Start Date End Date ASPIRIN ORAL Take 81 mg by mouth daily. Take 0 with food for heart health. documented as of this encounter Progress Notes Jose Carlos Vidales, R.N. - 12/18/2014 3:02 PM CST [id number] CHIEF COMPLAINT/REASON FOR VISIT Conjunctivitis follow up. HISTORY OF PRESENT ILLNESS Archie is a very pleasant 69-year-old female who comes into the clinic today with concerns regardingongoing redness and discomfort in her bilateral eyes. She was seen in primary care on November related to redness and discomfort in her left eye. She reported a thicker discharge related to her left eye. She denied any concerns related to her right eye. She denied any gritty sensation in her eyes. She was prescribed Polymyxin B-trimethoprim 10,000 units per 1 mg, 1 drop in the left eye every 3 hours x7 days. She is here today reporting the drops initially appeared to help the redness and discharge in her left eye. She reports over the last several days she is noting more redness and a watery consistency in her right eye. She reports her bilateral eyelids are swollen and she has a gritty sensation intermittently. She reports her eye discomfort has been present for approximately 1 week. She reports a mattery consistency in both her eyes in the morning. She denies anypurulent or thick discharge from either eye. She also reports concerns related to an intermittent sore throat over the last 2 weeks. She reports potential fevers for 1 day over the last 2 weeks. Shedenies any headaches or abdominal pain. She denies any rhinorrhea or ear pain. She is here today for further evaluation. She has no other concerns today. MEDICATIONS Reviewed and reconciled. New medication today; erythromycin 0.5% ophthalmic ointment 0.5 inches both eyes 4 times per day times 5 to 7 days. ALLERGIES Azithromycin. Benicar. PAST MEDICAL/SURGICAL HISTORY PAST MEDICAL HISTORY: Reviewed and unchanged. PAST SURGICAL HISTORY: Reviewed and unchanged. SOCIAL HISTORY Archie is a non-tobacco and non-alcohol user. SYSTEMS REVIEW As per HPI. She denies heart palpitations, chest pain, or shortness of breath. She denies headaches or abdominal pain. She denies maxillary or frontal sinus tenderness. She denies rhinorrhea or earpain. VITAL SIGNS Temperature 36.4, heart rate 66, respiration rate 16, blood pressure 140/69. PHYSICAL EXAMINATION GENERAL: Alert and oriented. No acute distress. HEENT: Head: Normocephalic/atraumatic. Eyes: PERRLA. Bilateral mild injection of sclerae. No appreciable foreign object. No crusty consistency appreciable on upper or lower lids. Watery discharge appreciable bilaterally. Ears: TMs are clear bilaterally with bony landmarks noted within normallimits. Nares patent. Oropharynx with mild erythema and no exudate. NECK: Supple, without thyromegaly. Full range of motion. LYMPHATIC: No axillary, cervical, supraclavicular lymphadenopathy. HEART: Regular S1, S2. No murmurs, rubs, or gallops noted. LUNGS: Clear to auscultation bilaterally. No prolonged expiratory phases, wheezing, rales, or rhonchi. NEUROLOGICAL: Cranial nerves II to XII grossly intact and symmetric. She ambulates with a steady gait. IMPRESSION/REPORT/PLAN 1. Acute conjunctivitis. 2. Throat pain. PLAN: 1. Conjunctivitis: At this time, I do believe her bilateral eye irritation may be a viral conjunctivitis. I did prescribe erythromycin 0.5% ophthalmic ointment as a precautionary measure if her bilateral eye irritation is infectious. We discussed the possibility that a viral conjunctivitis may take 10 to 14 days to resolve. She verbalized understanding of this plan. I instructed her to contactthe clinic with worsening or no improvement in symptoms. I instructed her to use warm compresses onher eye for symptom management. 2. Throat pain: At this time, I believe she has a viral illness. She was instructed to increase her non-caffeine oral fluid intake and maintain adequate sleep. She will follow up in primary care with worsening or no improvement in symptoms. She verbalized understanding of this plan. All questions were answered. She left in no acute distress. Ready to learn. No apparent learning barriers were identified. Learning preferences include listening. Explained diagnosis and treatment plan. Patient/Child/Caregiver expressed understanding of the content. Jose Carlos Vidales NRegina/gene Electronically Signed By: JOSE CARLOS VIDALES SENIOR ORACLE DATABASE DEVELOPER On: 12/19/2014 02:06 PM Modified by and Electronically Signed by: JOSE CARLOS VIDALES SENIOR ORACLE DATABASE DEVELOPER On: 12/19/2014 02:06 PM Source: [facility] [email or web address] Document Id: [id number] RVATIONS SALES AGENT documented in this encounter Miscellaneous Notes Miscellaneous - Jose Carlos Vidales RJairoN. - 12/18/2014 4:17 PM CST Ambulatory Patient Summary [address] [id number] Visit Information Name: ARCHIE BAZAN [facility] Number: [id number] Current Date: 12/18/2014 16:17:12 Physicians Attending Provider: JOSE CARLOS VIDALES NP Primary Care Provider: NE VILLRA MD ARCHIE BAZAN has been given the [...] day Take with food for heart health. cholecalciferol (Vitamin D3 5000 intl units oral tablet) 1 Tablet(s), Oral, once a day cinnamon oral (Cinnamon 500 mg oral capsule) 2 cap, Oral, two times a day clindamycin topical (clindamycin 1% topical gel) 1 shauna, Topical, two times a day rosacea erythromycin ophthalmic (erythromycin 0.5% ophthalmic ointment) 0.5 Inch(es), Eyes(Both), four timesa day [facility] [address] [id number] glipiZIDE (glipiZIDE 5 mg oral tablet) 1 Tablet(s), Oral, once a day 30 minutes before breakfast levothyroxine (levothyroxine 75 mcg (0.075 mg) oral tablet) 1 Tablet(s), Oral, once a day for thyroid replacement metFORMIN (metFORMIN 500 mg oral tablet, extended release) 1 Tablet(s), Oral, two times a day potassium acetate (potassium acetate) 1tab, Oral, once a day OTC simvastatin (simvastatin 10 mg oral tablet) 1 Tablet(s), Oral, once a day (at bedtime) Take for highcholesterol. Stop Taking the Following Medications: Medication list as of 12-18-14 16:17 Attention: If you have any medications at [...] emergency. Electronically Signed By: JOSE CARLOS VIDALES SENIOR ORACLE DATABASE DEVELOPER Signed On:18-DEC-2014 16:17:04 Your Allergies & Intolerances Substance Reaction Symptoms [...] Appointments Date Time Location Provider 01/04/2015 11:15 [facility] Room 1 Attention: Contact your local Clinic [...] if you dont have one. Go to [email or web address] and click on Create Your Account. Then, follow the directions to complete the online form. Youll be asked for your [facility] number which you can find at the top of this document. Your Goals/Additional instructions: Source: [facility] POWERCHART Document Id: [id number] RVATIONS SALES AGENT Miscellaneous - Jose Carlos Vidales R.N. - 12/18/2014 4:17 PM CST Ambulatory Discharge Medication List [address] [id number] Visit Information Name: ARCHIE BAZAN [facility] Number: [id number] Visit Date: 12/18/2014 16:17:10 Attending Provider: JOSE CARLOS VIDALES SENIOR ORACLE DATABASE DEVELOPER Primary Care Provider: NE VILLAR MD ARCHIE BAZAN has been given [...] day Take with food for heart health. cholecalciferol (Vitamin D3 5000 intl units oral tablet) 1 Tablet(s), Oral, once a day cinnamon oral (Cinnamon 500 mg oral capsule) 2 cap, Oral, two times a day clindamycin topical (clindamycin 1% topical gel) 1 shauna, Topical, two times a day rosacea erythromycin ophthalmic (erythromycin 0.5% ophthalmic ointment) 0.5 Inch(es), Eyes(Both), four timesa day [facility] [address] [id number] glipiZIDE (glipiZIDE 5 mg oral tablet) 1 Tablet(s), Oral, once a day 30 minutes before breakfast levothyroxine (levothyroxine 75 mcg (0.075 mg) oral tablet) 1 Tablet(s), Oral, once a day for thyroid replacement metFORMIN (metFORMIN 500 mg oral tablet, extended release) 1 Tablet(s), Oral, two times a day potassium acetate (potassium acetate) 1tab, Oral, once a day OTC simvastatin (simvastatin 10 mg oral tablet) 1 Tablet(s), Oral, once a day (at bedtime) Take for highcholesterol. Stop Taking the Following Medications: Medication list as of 12-18-14 16:17 Attention: If you have any medications at [...] emergency. Electronically Signed By: JOSE CARLOS VIDALES SENIOR ORACLE DATABASE DEVELOPER Signed On:18-DEC-2014 16:17:04 Additional Information: Source: [facility] POWERCHART Document Id: [id number] RVATIONS SALES AGENT Miscellaneous - Nya Wilson, L.P.N. - 12/18/2014 3:19 PM CST Adult Health Care Assistant Intake/History Adult Health Care Assistant Intake/History Entered On: 12/18/2014 15:22 RESERVATIONS SALES AGENT Performed On: 12/18/2014 15:19 RESERVATIONS SALES AGENT by NYA WILSON LPN Intake Chief Complaint : blood sugars running 170-195 before breakfast. After eating she has not rechecked. Recheck pink eye- and cold symptoms Ambulatory Intake Additional Information : takes metformin 2 tabs in pm only Temperature Core : 36.4 DegC(Converted to: 97.5 DegF) (LOW) Peripheral Pulse Rate : 66 /min Respiratory Rate : 16 /min Systolic Blood Pressure : 140 mmHg Diastolic Blood Pressure : 69 mmHg NIBP Mean : 93 mmHg BP Location : Left upper extremity Blood Pressure Cuff Size : Large Height : 158 cm(Converted to: 5 ft 2 inch(es), 62 inch(es)) NYA WILSON LPN - 12/18/2014 15:19 RESERVATIONS SALES AGENT General Info Information Given By : Patient Languages : Indonesian Is Patient Female and 13-50 no hysterectomy : No NYA WILSON LPN - 12/18/2014 15:19 RESERVATIONS SALES AGENT Subjective Pain Symptoms : No NYA WILSON LPN - 12/18/2014 15:19 RESERVATIONS SALES AGENT Dependent Habits Tobacco Use/Currently Using : No Exposure to Tobacco Smoke : Care provider denies smoking in home Smoking Status : Never smoker Alcohol Use : No NYA WILSON LPN - 12/18/2014 15:19 RESERVATIONS SALES AGENT Caffeine Use Grid Caffeine Use : Past Type : Coffee, Soft drinks Frequency : Occasionally Amount : 1 cup per week NYA WILSON LPN - 12/18/2014 15:19 RESERVATIONS SALES AGENT Recreational Drug Use Grid Drug Use : None NYA WILSON LPN - 12/18/2014 15:19 RESERVATIONS SALES AGENT Source: [email or web address] Document Id: [id number] RESERVATIONS SALES AGENT!33 RVATIONS SALES AGENT documented in this encounter Plan of Treatment Not on filedocumented as of this encounter Visit Diagnoses Not on filedocumented in this encounter Additional Health Concerns Assessment Noted Time PHQ-9 Depression Total Score: 7 06/21/2014 9:20 AM CD T documented as of this encounter
--- OUTSIDE RECORDS SUMMARY | 2021-09-05 08:01 | XMS_ITS | Encounter Summary ---
:1945 Author Organization [facility] Address [address] [place] [address] Care Team Providers Name Role Phone Unavailable Primary Care Provider Unavailable Encounter Details Date Type Department Care Team Description 01/20/2013 Hospital Encounter HX [facility] ME Nicki Anthony, MAL, C.N.P., D. N.P. [address] [place] [address] (Wo rk) Social History Tobacco Use Types [...] documented as of this encounter Progress Notes Conversion, Historical Provider Ser - 01/20/2013 9:22 AM CST [id number] HEALTH AND WELLNESS COACHING The patient was seen at [facility] in [place] on 01/20/2013 for followup wellness coaching visit around diabetes. CHIEF COMPLAINT/REASON FOR VISIT Followup wellness coaching visit. PHYSICAL EXAMINATION Her weight is at 82.7 kg, which is 181.94 pounds. This is up 0.44 of a pound since last session. SESSION OVERVIEW Today I met with Marcial in regard to her overall weight loss and wellness plan since her surgery. Her arm is now out of her cast and she is able to have mobility and has been starting in with PT and working with Ziyad around this. 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 Toya shared that she has been doing well with her eating for most of the days, but oftentimes the sec ond week will go into an all or nothing approach around her foods. Oftentimes if she has a thing that she considers to be a mistake or something bad for her she will not limit it to just one but continue on eating lots of bad choices for the rest of the day. We discussed other strategies and ways that she could just write it off as a bad choice and move forward towards the next meal, or even just drinks a glass of water right when she makes that association and move forward right then rather than creating a bunch of other decisions around food that she will not feel happy about later. We also discussed one of her downfall times which is a 3:00 to 4:00 p.m. time where her blood sugar oftentimes is low and she is hungry before dinner. We talked about a snack list and what would be a great thingto have during that time that would satiate her and also move her forward in keeping a healthy diet but also to take care of her so she is not ravenous during that time. She came up with several strategies like gluten-free chips with some cheese, fruit, or cottage cheese along with Welsh yogurts and n uts. FOLLOWUP PLAN We will plan on seeing Marcial in 2 weeks moving forward in her weight loss journey and also looking at increasing her relaxation response as she heals up her shoulder and moves forward in this area. She shared that she would like to meet every 2 weeks for the next few months through the holiday season for more accountability and guidance. Annie Miramontes[facility] Electronically Signed By: ANNIE MIRAMONTES On: 01/21/2013 03:58 PM Source: [facility] Document Id: [id number] documented in this encounter Plan of Treatment Not on filedocumented as of this encounter Visit Diagnoses Not on filedocumented in this encounter
--- OUTSIDE RECORDS SUMMARY | 2021-09-05 08:01 | XMS_ITS | Encounter Summary ---
:1945 Author Organization [facility] Address [address] [place] [address] Care Team Providers Name Role Phone Unavailable Primary Care Provider Unavailable Encounter Details Date Type Department Care Team Description 06/07/2013 Hospital Encounter HX [facility] ME Nicki Holt, MAL, C.N.P., D. N.P. [address] [place] [address] (Wo rk) Social History Tobacco [...] by mouth daily. Take 0 with food [employer] health. 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 years and older Ethnicity : Chose Not to Disclose Current Treatment : None ROGERS STEINER RN - 06/07/2013 14:39 CDT Foot Problems No foot problems : Left, Right ROGERS STEINER RN - 06/07/2013 14:39 CDT Diabetes Visit Summary : Reviewed current self diabetes management A1c 7.49%, managing with food and activity A1c up some, prefers to not restart Metformin Discussed diabetes progress over time and how management options Patient feels she can make some adjustments with her dietary intake She is currently walking 3-5 times a week for 30 minutes and feels can increase this Her numbers seem to be highest am and hs, she is going to try adding some walking in the evening andsee what this does Discussed goal ranges, when to check and using a window of time checking her numbers 3-4 times a day for just 2-3 days and then if some elevations look more closely for possible trends Discussed importance of not letting this go too long if not coming down. She verbalized understanding Time Spent With Patient : 60 Minutes ROGERS STEINER RN - 06/07/2013 14:39 CDT Education Diabetes Education Grid Topics : Diabetes Post-program Education, Disease process, Treatment plan/options, Nutritional Management - Small Portions, Physical activity, Monitoring - Blood Glucose, Acute Complications - Preventing, Chronic Complications - Preventing, Chronic Complications - Prevention Follow Up Care Individuals Taught : Patient Barriers to Learning : None evident Teaching Method : Explanation, Printed materials Teaching Evaluation : Verbalizes understanding ROGERS STEINER RN - 06/07/2013 14:39 CDT DSMS Plan DSMS Plan Statement : This personalized follow-up plan for on-going self- management support was developed collaboratively with the patient. The patient feels this plan will help them manage their diabetes in the future. Diabetes Self Management Support Plan : Attend Community Health Events, Community Walking Program,Follow up with Primary Provider, Other: Educator ROGERS STEINER RN - 06/07/2013 14:39 CDT Source: [employer] Document Id: [id number]!24 documented in this encounter Plan of Treatment Not on filedocumented as of this encounter Visit Diagnoses Not on filedocumented in this encounter Additional Health Concerns Assessment Noted Time PHQ-9 Depression Total Score: 1 06/01/2013 1:42 PM CD T documented as of this encounter
--- OUTSIDE RECORDS SUMMARY | 2021-09-05 08:01 | XMS_ITS | Encounter Summary ---
:1945 Author Organization [facility] Address [address] [place] [address] Care Team Providers Name Role Phone Unavailable Primary Care Provider Unavailable Encounter Details Date Type Department Care Team Description 01/03/2013 - Hospital Encounter HX [facility] Arias Finn 05/11/2013 AURELIANO Thurston M.D. [address] [id number] Social History Tobacco Use Types [...] on file documented as of this encounter Discharge Summaries Chilango Lovell, P.T. - 02/21/2013 12:00 AM CST [id number] IMPRESSION/REPORT/PLAN This patient was seen for a total of 7 visits being status post right rotator cuff repair. At last visit, patient's mobility was 100 degrees of shoulder flexion with abduction to 75 degrees. At that time, there did appear to be of some adhesive capsulitis noted. She was to followup with her doctor,this being Dr. Velasco. We were going to followup with therapy directly after that. However, she hasnot followed up with further therapy. We did call the patient and she stated that her physician thought that she should just give this time to see if it would work itself out. Therefore, we will discontinue with patient holding on further therapy at this time. Otilio Montez/kena Electronically Signed By: CHILANGO LOVELL On: 02/24/2013 11:50 AM Source: [facility] MHSDOLBEYNCELESTINARADSYS Document Id: [id number] [employer]PERATIONS ENGINEER documented in this encounter Medications at Time of Discharge Medication Sig Dispensed Refills Start Date End Date ASPIRIN ORAL Take 81 mg by mouth daily. Take 0 with food for Wildfire. documented as of this encounter Progress Notes Chilango Lovell P.T. - 01/19/2013 12:00 AM CST [id number] IMPRESSION/REPORT/PLAN Marcial comes in today still with similar issues. She feels that the exercises at home are only doing so much where she is not seeing a lot of improvement. We did continue today with aggressive passive range of motion. At this time, she does appear to have adhesive capsulitis. She is with limitation for flexion this being to approximately 100 degrees. External rotation is to approximately 20 to 25 degrees. Abduction is to approximately 75 degrees. She is very limited with internal rotation. We did try some real light resistive exercises this being against gravity with patient in the supine.We also did provide some light resistance for isometric contractions for internal/external rotation. Patient is presently using the arm outside of the sling. not that with any type of weights but she is using it to help with drinking coffee and opening doors as such. We advised her to continue doingthis to help with the mobility. Total time today was 30 minutes of manual therapy. ASSESSMENT: Patient is with a very limited shoulder at this time. It does appear that she does have some adhesive capsulitis at this time. PLAN: Patient will be seeing her physician next week. We encouraged her to strongly do these exercises at home and continue to be aggressive with them. We will hold on therapy until she sees him next week. Otilio Montez/angelica DOCID: [110] Electronically Signed By: CHILANGO LOVELL On: 01/25/2013 08:29 AM Source: [facility] Document Id: [id number] Chilango Mabry P.T. - 01/17/2013 12:00 AM CST [id number] IMPRESSION/REPORT/PLAN Marcial comes in today without any significant changes overall. We did treat today with hot packs for the first 15 minutes followed by manual techniques for a total time of 25 minutes here. At this point, the patient is with limited mobility with shoulder flexion to approximately 120 degrees. There is pain at pathological end range. External rotation is limited. Abduction remains limited at approximately 75 degrees. We did review some of her home exercises. She needs to be aggressive with her exercises at home. She is doing both the pulleys as well as cane exercises. She is doing towel exercises for internal rotation behind her back. We also had her lie her arm on the table and she scootsback with her wheeled chair where she can relax more and bring her shoulder into further flexion. However, there is a significant restriction with flexion. We will continue to progress as able. Plancarltonll be to continue. Otilio Montez/arnol DOCID: [110] Electronically Signed By: CHILANGO LOVELL On: 01/25/2013 08:34 AM Source: [facility] Document Id: [id number] Chilango Mabry P.T. - 01/12/2013 12:00 AM CST [id number] IMPRESSION/REPORT/PLAN Marcial comes in today for continued therapy for mobility on her right shoulder. It is noted that she has a considerable amount of tightness for shoulder flexion as well as external rotation. Abduction is very limited at this time. She is unable to get beyond 75 degrees with this. We did continue with hot packs to the shoulder followed by aggressive passive range of motion. This consisted of shoulder flexion as well as shoulder abduction and external rotation. We also instructed and evaluated her home exercises for all these exercises along with internal rotation with towel trying to bring herarm behind her back. We encouraged her that she be aggressive with this. Total time today was 25 minutes of manual therapy. ASSESSMENT: Patient is with significant tightness in her shoulder. There is some question as whether or not this may be adhesive capsulitis. PLAN: The plan will be to continue. She will be seeing her physician in approximately 10 days. Otilio Montez/rodrick DOCID: [110] Electronically Signed By: CHILANGO LOVELL On: 01/25/2013 08:34 AM Source: [facility] MARSYNPERRY Document Id: [id number] [employer]PER[employer] ENGINEER Chilango Lovell P.T. - 01/10/2013 12:00 AM CST [id number] IMPRESSION/REPORT/PLAN Marcial comes in today stating she has been trying to do her exercises aggressively at home. Her was in with her today. He notes that she has been very temple about her exercises. We did continue today with hot packs to the shoulder followed by manual techniques for 15 minutes for aggressive passive range of motion. Able to obtain shoulder flexion to approximately 100 - 105 degrees today. This is an improvement as compared to last time. Total time today was 15 minutes of Therex. ASSESSMENT: Patient tolerated well. She is progressing with some motion. Plan will be to continue. She will be seeing her neurology specialist once again I believe this week as well. Otilio Montez/rodrick DOCID: [110] Electronically Signed By: CHILANGO LOVELL On: 01/18/2013 08:09 AM Source[facility] Document Id: [id number] Chilango Mabry P.T. - 01/07/2013 12:00 AM CST [id number] IMPRESSION/REPORT/PLAN Marcial comes in today stating that she has been doing exercises at home as much as she can. We did continue today with hot packs to the shoulder followed by passive range of motion once again. Able to bring shoulder to approximately 95 degrees of shoulder flexion today. We did also instruct patientwith further exercises. We did review her exercises that she was doing. We recommend that she do these exercises at least five to six times per day. She states that she is only doing hers for approximately 2 to 3 times a day. We encouraged her to do this more often and that this was very importantto gain mobility. ASSESSMENT: Patient tolerated well overall. Total time was 25 minutes of manual therapies. Plan will be to continue. Oitlio Montez/elizabeth DOCID: [110] Electronically Signed By: CHILANGO LOVELL On: 01/25/2013 08:41 AM Source: [facility] Document Id: [id number] Chilango Mabry P.T. - 01/05/2013 12:00 AM CST [id number] IMPRESSION/REPORT/PLAN Marcial comes in today stating that that she has difficulty in doing her exercises. She has a considerable amount of pain in the shoulder. She rates her pain as 6/10 with stretching. We did continue today with passive range of motion of the shoulder. She is very protective of the shoulder itself. We are able to bring the shoulder to approximately 90 - 95 degrees. Shoulder external rotation is toapproximately 20 degrees at this time. Abduction is to 70 - 80 degrees as well. We encouraged her to be aggressive with this at home. It is noted that she cannot tolerate a lot for pain. She was recommended that she take some pain medication prior to coming to therapy. Total time today was 30 minutes of manual therapy. ASSESSMENT: Patient is with some pain in the shoulder which is difficult for her to work through atthis time. She will continue to be aggressive at home. Plan will be to continue. Otilio Montez/arnol DOCID: [110] Electronically Signed By: CHILANGO LOVELL On: 01/07/2013 06:13 AM Source: [facility] MHSDOLBEYNONRADSYS Document Id: [id number] [employer]PER[employer] ENGINEER documented in this encounter Consult Notes Chilango Lovell P.T. - 01/03/2013 12:00 AM CST [id number] CHIEF COMPLAINT/REASON FOR VISIT This patient comes in being status post right rotator cuff repair. Her surgery was on 11/23/2012. This puts her at approximately 6 weeks postop now. She states that she has been in the sling most ofthe time. She can now start to wean herself out of the sling. She states that she has not been using her shoulder throughout this whole duration. She has not been doing anything for stretching outside of maybe some pendulum exercises. She presently rates her pain as a 1-2/10 on a 0 - 10 pain scale. It does not get a whole lot worse than this. She would describe her pain as being aching. Rest makes it feel better. MEDICATIONS At this time, patient is not taking anything for pain for the shoulder. IMPRESSION/REPORT/PLAN Upon observation, patient ambulates into therapy with no difficulty. She is not a fall risk at thistime being able to perform a tug test without difficulty. She is able get up on the treatment tablewithout difficulty. We did help her lie down supporting the right shoulder as she did so. From there, we worked on some passive range of motion. We were able to bring the shoulder to approximately 90 degrees with prolonged passive range of motion exercises. External rotation is somewhat limited, this being no more than 15 degrees at this time. Internal rotation is also limited, but we did not push this too aggressively today. We did instruct the patient with cane exercises for external rotation and also shoulder flexion. We did recommend that she start doing these for now and we also instructed her with shoulder flexion exercises laying her arm up on a table and scooting back with a chair with rollers on it. This helps her to relax more and to allow more flexion of the shoulder. Her was available as well so we did instruct these exercises to him. PATIENT EDUCATION: Ready to learn No apparent learning barriers were identified Learning preferences include listening Explained diagnosis and treatment plan Patient/Child/Caregiver expressed understanding of the content Presently, her current functional status is G 8987 with a severity modifier being CK. Her projectedgoal status will be G 8988 with a severity modifier being CI. GOALS: 1. To increase overall shoulder flexion to 160 degrees or better. 2. To progress with strengthening over the next 3 - 4 weeks. 3. Patient able to resume normal activities with this shoulder being able to perform her ADLs. Presently, she cannot do any of this with her right shoulder. PLAN OF CARE: Will be modalities if necessary along with manual techniques and strengthening. Prognosis is good at this time. ASSESSMENT: Patient is status post rotator cuff repair now approximately 6 weeks ago. She does have some tightness in her right shoulder particularly at approximately 90 degrees. It is noted that she is a diabetic. There is a somewhat hard end field at the end range. However, we are hoping that this is just due to guarding. Plan will be to see patient for 3 to 5 visits over the next 2 weeks. We are not to do any type of strengthening at this time. This will all be addressing mobility. Lee Kumari R.P.T./arnol cc: Hugo Velasco M.D. Electronically Signed By: CHILANGO LOVELL On: 01/07/2013 06:17 AM Source: [facility] MHSDOLBEYNCELESTINARADS Document Id: [id number] [employer]PERATIONS ENGINEER documented in this encounter Miscellaneous Notes Miscellaneous - Tameka Velasco R.N. - 03/09/2013 8:25 AM CST Reminder Msg From: TAMEKA VELASCO RN To: [place] Colonoscopy Pool; Sent: 03/09/2013 08:25:33 [employer]AD[employer] ENGINEER Show up: 10/28/2018 08:25:00 CDT Subject: Reminder Msg Due Date/Time: 01/05/2019 08:24:00 BROAD[employer]PERATIONS ENGINEER Please Remember to: Patient had her last scope in 2008, she is a 10 year follow-up, bx were normal mucosa. She is due in 2019. PATIENT: ( ) Call Patient ( ) Ask Patient to ( ) ( ) Call Relative ( ) Schedule Patient ( ) ( ) Call for [place] ( ) Follow up on Results ( ) Other: PROVIDER: ( ) Call Physician ( ) Call Pharmacist ( ) Call Lab ( ) Other: Special Instructions: Comments: Source: [facility] POWERCHART Document Id: [id number] Miscellaneous - Vickey Holt D.NJairoP., C.N.P. - 03/04/2013 3:01 PM [employer]PERATIONS ENGINEER Medication MACRIAL ARENASIEL BENI March [birth year], [address] [place] [phone] To Whom It May Concern: The letter is being written on behalf of Marcial Adams. I do recommend that the patient take Fish Oil with omega-3 by mouth daily as directed on package for cardiac benefit. She is also instructed to take calcium with vitamin D for overall bone health, 600 mg 3 times daily. She may use Mucinex qeem-qfy-ausrkay as directed on package as needed for nasal congestion. I also encourage her to use aspirin 81 mg by mouth daily for cardiac protection and also given her medical history of type 2 diabetes mellitus. She is also instructed to use Prilosec rdgi-neg-yzbnlvy 20 mg extended release tablet to take 1 tablet by mouth daily as needed for gastroesophageal reflux, heartburn, and/or when taking nonsteroidal anti-inflammatories. (These medications are used for hyperlipidemia, type 2 diabetes mellitus, and osteoporosis which Marcial has been diagnosed with.) Sincerely, Corrine LucasN.P./[place].[facility]al [facility] of Family [facility] Electronically Signed By: VICKEY HOLT DNP, FNP On: 03/04/2013 03:01 PM Source: [facility] POWERCHART Document Id: [id number] [employer]PER[employer] ENGINEER documented in this encounter Plan of Treatment Not on filedocumented as of this encounter Visit Diagnoses Not on filedocumented in this encounter
--- OUTSIDE RECORDS SUMMARY | 2021-09-05 08:01 | XMS_ITS | Encounter Summary ---
:1945 Author Organization [facility] Address [address] [place] [address] Care Team Providers Name Role Phone Unavailable Primary Care Provider Unavailable Encounter Details Date Type Department Care Team Description 07/24/2014 Hospital Encounter [facility] [address] [place] [phone] (Wo rk) Social History Tobacco Use [...] - - Height 158 cm (5' 2.21) 07/24/2014 10:50 AM CDT Body Mass Index - - documented in this encounter Medications at Time of Discharge Medication Sig Dispensed Refills Start Date End Date ASPIRIN ORAL Take 81 mg by mouth daily. Take 0 with food for heart health. 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 However, the narrative phrase printed from the coding software may appear abbreviated, or result in slightly different terminology. Coded By: GUERITA CHAN Date Saved: 08/07/2014 04:04 pm Source: [facility] Document Id: [id number] Miscellaneous - Gail Cortez M.D. - 07/07/2014 1:59 PM CDT paperwork Document Contains Addenda Addendum by MARIA C WILSON LPN on 12 Jul 2014 15:40:38 CDT no answer, not able to lvm Addendum by MARIO POTTER LPN on 07 Jul 2014 14:23:55 CDT called pt, unable to leave a message to call back due to no voicemail. will try again today. From: GAIL VILLAR MD To: [facility] Family Medicine Nurse Scotty; Sent: 07/07/2014 13:59:58 CDT Subject: paperwork Can you please call patient and let her know that I received her orthotic form, but I am unable to fill it out because the documentation in the chart is not thorough enough to fill out without seeing her. We can address it at the July appt or sooner if she wants to reschedule. Gail Cm Source: [facility] Document Id: [id number] Electronically signed by Conversion, [facility] Laundry Supervisor [id number] at 07/14/2016 2:50 PM CDT documented in this encounter Plan of Treatment Not on filedocumented as of this encounter Visit Diagnoses Not on filedocumented in this encounter Additional Health Concerns Assessment Noted Time PHQ-9 Depression Total Score: 7 06/21/2014 9:20 AM CD T documented as of this encounter
--- OUTSIDE RECORDS SUMMARY | 2021-09-05 08:01 | XMS_ITS | Encounter Summary ---
:1945 Author Organization [facility] Address [address] [place] [id number] Care Team Providers Name Role Phone Unavailable Primary Care Provider Unavailable Encounter Details Date Type Department Care Team Description 07/24/2014 Hospital Encounter HX [facility] Gail Garrison M.D. [address] [place] [phone] (Wo rk) Social History Tobacco Use [...] Sign Reading Time Taken Comments Blood Pressure 126/62 07/24/2014 10:00 AM CDT Pulse 64 07/24/2014 10:00 AM CDT Temperature - - Respiratory Rate 16 07/24/2014 10:00 AM CDT Oxygen Saturation - - Inhaled Oxygen Concentration - - Weight 85.2 kg (187 lb 13.3 oz) 07/24/2014 10:00 AM CDT Height 158 cm (5' 2.21) 07/24/2014 10:00 AM CDT Body Mass Index 34.13 07/24/2014 10:00 AM CDT documented in this encounter Medications at Time of Discharge Medication Sig Dispensed Refills Start Date End Date ASPIRIN ORAL Take 81 mg by mouth daily. Take 0 with food for heart health. documented as of this encounter H&P Notes Gail Cortez M.D. - 07/24/2014 2:02 PM CDT Clinic Full Note CHIEF COMPLAINT/REASON FOR VISIT here to establish and discuss diabetis HISTORY OF PRESENT ILLNESS Archie presents today to establish care and follow up on her diabetes. She also has a couple otherconcerns. In regards to her diabetes, last A1c was 6.9 in May. She had this completed elsewhere. She checks her blood sugar zero to two times per day. She saw the staff development educator in March and would like to see a dietitian. She also needs a new script for diabetic shoes and custom inserts. Patient also notes occasional left-sided chest pain which sometimes will feel different to maybe like a tickle. It occurs with breathing. It has been ongoing for months and occurs both with rest andactivity. It lasts 4 to 5 breaths. There is no associated shortness of breath, radiation, nausea, or diaphoresis. She does note generally she is more fatigued when walking up hill and she will get some pain into both shoulders. Patient also reports that her memory and thinking are bad. She wonders if it is related to medications or her age or something more. It will take her a little longer to come up with the right to word. She will know what she wants to say and just cannot get it to come out. She also does a lot of sewing and sometimes it is hard to figure things out. It is bothersome and has been ongoing for 1 year without change. Lastly patient notes bumps on her arms that had been there for years. Sometimes it will hurt a little more but they are not changing in size. MEDICATIONS aspirin 81 mg oral tablet, 81 mg, 1 tab(s), Take with food for heart health., PO, Daily, 0 refills Cinnamon 500 mg oral capsule, 1,000 mg, 2 cap(s), PO, 2xDay glipiZIDE 5 mg oral tablet, 2.5 mg, 0.5 tab(s), 30 minutes before breakfast, PO, Daily, [...] ALLERGIES azithromycin Benicar PAST MEDICAL HISTORY Chronic Anxiety disorder NOS Hyperlipidemia/Dyslipidemia Hypothyroidism NOS NIDDM [non-insulin dependent diabetes mellitus] Osteoarthritis Osteoporosis NOS Palpitations Renal Calculus Rosacea Historical No historical problems PROCEDURES/SURGICAL HISTORY Colonoscopy (01/03/2009), HC COLONOSCOPY W BIOPSY - 07/06/02 (07/06/2002), C LAP,HERNIA REPAIR PROC,UNLIST - 03/22/01 (03/22/2001), HC REPAIR INCISIONAL HERNIA,REDUCIBLE - 06/14/98 - Incisional hernia repair w mesh (06/14/1998), Biopsy of breast (02/16/1986), Appendectomy (1959), section. SOCIAL HISTORY Patient has been to her for 50 years. They have 2 children and 5 grandchildren. Never smoker. No alcohol. She reports she does not do enough exercise but does like to walk, garden and quilt. SOCIAL HISTORY Date Time: 07/24/2014 10:00 Tobacco: Smoking Status: Never smoker Exposure: Care provider denies smoking in home Alcohol: Use: No Recreational Drugs: Use: None Type: No Results Found FAMILY HISTORY Mother ( at 50 year(s)):Positive: CA - Breast cancer Father ( at 68 year(s)):Positive: CA - Lung cancer; Coronary artery disease Brother ( at 67 year(s)):Positive: Aneurysm; CA - Cancer of prostate; Diabetes mellitus Brother:Positive: Diabetes mellitus Daughter:Positive: Diabetes mellitus; Migraine HEALTH MAINTENANCE Colon 2009 Mammo today DXA today SYSTEMS REVIEW As per HPI. Patient denies any visual changes, numbness, or tingling. She reports her mood fluctuates. It has been like this for a couple of years. She cannot identify a trigger. She will use Xanax if necessary. Patient also will have flares of rosacea on her nose. Patient also reports spurs in the her feet which cause pain. VITAL SIGNS T: 36.4 ??C (Core) HR: 64 RR: 16 BP: 126 / 62 HT: 158 cm WT: 85.2 kg BMI: 34.13 PHYSICAL EXAMINATION General: Alert and oriented. No acute distress. Neck: Supple. No lymphadenopathy. No carotid bruits. Cardiovascular exam: Regular rate and rhythm. Normal S1 and S2. No murmurs, rubs, or gallops. Lungs: Clear to auscultation bilaterally. Extremities: No pedal edema. Calluses to medial 1st MTP joints bilaterally, more tender on the right. 2nd toe is longer than the first toe on both feet. 2+ DP pulses bilaterally. Sensation to monofilament testing intact. Patient has fairly well circumscribed lumps to subcutaneous tissue of left arm. IMPRESSION/REPORT/PLAN 1. DM2 Patient's A1c was at goal. We will plan on repeating this in November. We will get her set up withthe dietitian. At this point, I feel her chest symptoms are likely chest wall related. Ordered: OV Est Pt Level 4 - 22979 - 25 min 2. Complaint Memory Patient's symptoms are not progressing and do not sound overly severe. She denied any more significant problems. At this point we will continue to monitor. Ordered: OV Est Pt Level 4 - [id number] - 25 min 3. Rosacea NOS Clindamycin gel was refilled. Ordered: OV Est Pt Level 4 - [id number] - 25 min 4. Hyperlipidemia NOS Patient will be due for lab work in November. Ordered: OV Est Pt Level 4 - [id number] - 25 min 5. Hypothyroidism NOS TSH will be due in November. Ordered: OV Est Pt Level 4 - [id number] - 25 min Orders: clindamycin topical, 1 shauna, Topical, 2xDay, rosacea, # 30 gm, 3 Refill(s), Maintenance, Pharmacy: [facility] Consult to Elementary School Reading Teacher/Nutrition - Clinic Electronically Signed By: GAIL VILLAR MD On: 07/24/2014 02:05 PM Source: [facility] POWERCHART Document Id: [id number] documented in this encounter Miscellaneous Notes Miscellaneous - Gail Cortez M.D. - 07/24/2014 10:41 AM CDT Ambulatory Patient Summary [address] [place] [id number] Visit Information Name: ARCHIE BAZAN [facility] Number: [id number] Current Date: 07/24/2014 10:41:43 Physicians Attending Provider: GAIL VILLAR MD Primary [...] shauna, Topical, two times a day rosacea New Routed to [address] [address] glipiZIDE (glipiZIDE 5 mg oral tablet) 0.5 Tablet(s), Oral, once a day 30 minutes [...] the Following Medications: Medication list as of 07-24-14 10:41 Attention: If you have any medications at [...] Electronically Signed By: GAIL VILLAR MD Signed On:24-JUL-2014 10:41:01 Your Allergies & Intolerances Substance Reaction Symptoms [...] Your Upcoming Appointments Date Time Location Provider 07/24/2014 11:00 [facility] Bone Dens [facility] BD Rm 1 07/24/2014 11:30 [facility] Mammo [facility] MA Room 1 Attention: Contact your local Clinic if further appointment detail needed. Your Goals/Additional instructions: Future Appointment: _ Lab: _ Radiology: _ Need Prior Auth: _ NO Prior Auth: _ Consult: Elementary [employer] Reading Teacher Release of MR_ PHI_ Source: [facility] POWERCHART Document Id: [id number] Miscellaneous - Gail Cortez M.D. - 07/24/2014 10:41 AM CDT Ambulatory Discharge Medication List [address] [place] [id number] Visit Information Name: ARCHIE BAZAN [facility] Number: [id number] Visit Date: 07/24/2014 10:41:41 Attending Provider: GAIL VILLAR MD Primary Care Provider: GAIL VILLAR MD BENI JOSE MIGUELPATRICK MAI has been given the following list [...] shauna, Topical, two times a day rosacea New Routed to [address] [address] glipiZIDE (glipiZIDE 5 mg oral tablet) 0.5 Tablet(s), Oral, once a day 30 minutes [...] the Following Medications: Medication list as of 07-24-14 10:41 Attention: If you have any medications at [...] Electronically Signed By: GAIL VILLAR MD Signed On:24-JUL-2014 10:41:01 Additional Information: Source: [facility] POWERCHART Document Id: [id number] Miscellaneous - Nya Wilson L.P.N. - 07/24/2014 10:00 AM CDT Adult Director Workforce Management Intake/History Adult Director Workforce Management Intake/History Entered On: 07/24/2014 10:03 CDT Performed On: 07/24/2014 10:00 CDT by NYA WILSON LPN Intake Chief Complaint : here to establish and discuss diabetis Temperature Core : 36.4 DegC(Converted to: 97.5 DegF) (LOW) Peripheral Pulse Rate : 64 /min Respiratory Rate : 16 /min Systolic Blood Pressure : 126 mmHg Diastolic Blood Pressure : 62 mmHg NIBP Mean : 83 mmHg BP Location : Left upper extremity Blood Pressure Cuff Size : Large Height : 158 cm(Converted to: 5 ft 2 inch(es), 62 inch(es)) Actual Weight : 85.2 kg(Converted to: 187 lb 13 oz) Weight Source : Standing scale Dosing Weight Clinic : 85.2 kg Clinic BSA : 1.93 Body Mass Index : 34.13 kg/m2 NYA WILSON LPN - 07/24/2014 10:00 CDT General Info Information Given By : Patient Languages : Tongan Is Patient Female and 13-50 no hysterectomy : No NYA WILSON LPN - 07/24/2014 10:00 CDT Subjective Pain Symptoms : No NYA WILSON LPN - 07/24/2014 10:00 CDT Dependent Habits Tobacco Use/Currently Using : No Exposure to Tobacco Smoke : Care provider denies smoking in home Smoking Status : Never smoker NYA WILSON LPN - 07/24/2014 10:00 CDT Tobacco Use Grid Last Use : never NYA WILSON LPN - 07/24/2014 10:00 CDT Alcohol Use : No NYA WILSON LPN - 07/24/2014 10:00 CDT Caffeine Use Grid Caffeine Use : None Type : Coffee, Soft drinks Frequency : Occasionally Amount : 1 cup per week NYA WILSON LPN - 07/24/2014 10:00 CDT Recreational Drug Use Grid Drug Use : None NYA WILSON LPN - 07/24/2014 10:00 CDT [facility] Document Id: [id number] CDT!40 documented in this encounter Plan of Treatment Not on filedocumented as of this encounter Visit Diagnoses Not on filedocumented in this encounter Additional Health Concerns Assessment Noted Time PHQ-9 Depression Total Score: 7 06/21/2014 9:20 AM CD T documented as of this encounter
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
--- OUTSIDE RECORDS SUMMARY | 2021-09-05 08:01 | XMS_ITS | Encounter Summary ---
:1945 Author Organization [facility] Address [address] [place] [address] Care Team Providers Name Role Phone Unavailable Primary Care Provider Unavailable Encounter Details Date Type Department Care Team Description 12/30/2012 Hospital Encounter HX [facility] Nicki Anthony, MAL, C.N.P., D.N.P. [address] [place], [place] [phone] (Wo rk) Social History Tobacco Use Types [...] by mouth daily. Take 0 with food [employer] [facility]. documented as of this encounter Plan of Treatment Not on filedocumented as of this encounter Procedures Procedure Name Priority Date/Time Associated Diagnosis Comme nts THYROID-STIMULATING Routine 12/30/2012 9:04 AM R esults for this HORMONE-SENSITIVE REMOTE BROADCAST ENGINEER procedure are in (S-TSH) the results section. documented in this encounter Results Thyroid-Stimulating Hormone-Sensitive (s-TSH) (12/30/2012 9:04 AM REMOTE BROADCAST ENGINEER) P athologist Signature TSH 4.06 0.30 - 5.00 POWERCHART (Thyrotropin) MCIUML Specimen (Source) Anatomical Collection Method Collection Time Re ceived Time Location / / Volume Laterality Blood 12/30/2012 9:04 AM REMOTE BROADCAST ENGINEER Nicki Anthony APRN, C.N.P., D.N.P. LAB BLOOD ADD- ON Performing Organization Address City/State/ZIP Code Phon e Number POWERCHART documented in this encounter Visit Diagnoses Not on filedocumented in this encounter
--- OUTSIDE RECORDS SUMMARY | 2021-09-05 08:01 | XMS_ITS | Encounter Summary ---
:1945 Author Organization [facility] Address [address] [place] [address] Care Team Providers Name Role Phone Unavailable Primary Care Provider Unavailable Encounter Details Date Type Department Care Team Description 06/01/2013 Hospital Encounter HX [facility] Nicki Holt, MAL, C.N.P., D. N.P. [address] [place] [address] (Wo rk) Social History Tobacco [...] Sign Reading Time Taken Comments Blood Pressure 100/60 06/01/2013 1:20 PM CDT Pulse - - Temperature - - Respiratory Rate - - Oxygen Saturation - - Inhaled Oxygen Concentration - - Weight 83.6 kg (184 lb 4.9 oz) 06/01/2013 1:20 PM CDT Height 158.4 cm (5' 2.36) 06/01/2013 1:20 PM CDT Body Mass Index 33.32 06/01/2013 1:20 PM CDT documented in this encounter Medications at Time of Discharge Medication Sig Dispensed Refills Start Date End Date ASPIRIN ORAL Take 81 mg by mouth daily. Take 0 with food for heart health. documented as of this encounter H&P Dianne Milner R.N. - 06/01/2013 12:58 PM CDT [id number] Marcial is a very pleasant, 67-year-old female who comes in today for her initial Medicare annual wellness visit. PHYSICAL EXAMINATION Weight is 83.6 kg. Height is 158.4 cm. Blood pressure is 100/60 on the right arm with a regular cuff. Body mass index is 33.3. Obstructive sleep apnea assessment: Neck circumference is 42 cm. Total sleep apnea clinical score of 5. ALLERGIES 1. Erythromycin. 2. Benicar. MEDICATIONS 1. Aspirin 81 mg tablet 1 tablet by mouth daily. 2. Alprazolam 0.5 mg oral tablet 1 tablet by mouth every 8 hours as needed for anxiety. 3. Simvastatin 10 mg oral tablet 1 tablet by mouth at bedtime. 4. Fish oil 1000 mg oral capsule 1 capsule by mouth 3 times daily. 5. Vitamin D3, 5000 international units 1 tablet by mouth daily. 6. Levothyroxine 75 mcg tablet 1 tablet by mouth daily. PAST MEDICAL/SURGICAL HISTORY PAST MEDICAL HISTORY: 1. Hypothyroidism. 2. Diabetes mellitus type 2. 3. Hyperlipidemia. 4. History of TIAs. 5. 2011, nephrolithiasis. 6. Rosacea. 7. Osteoporosis. 8. 2012, palpitations. 9. Osteoarthritis. PAST SURGICAL HISTORY: 1. 1959, appendectomy. 2. 1986, breast biopsy. 3. June of 2002 and December 2008, colonoscopy. 4. 1997 and 2000, umbilical hernia repair. 5. 1968 and 1964, sections. 6. November 2012, right rotator cuff repair. OB HISTORY: 3, para 3, 1 miscarriage, both were section deliveries. SOCIAL HISTORY Marcial is . She lives in [facility]. She is retired. 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 They do have a pet. He is a poodle. They own their own home. She eats a fairly well-balanced diet on most days. She admits that she doesnot completely follow the number of carbohydrates which are allowed for her diabetic diet. Hobbies: She enjoys sewing and quilting. Exercise is 30 minutes 4 times a week. She walks. Tobacco use: She is a lifelong non tobacco user. Caffeine use is none. She drinks 1 cup of decaffeinated coffee per week. Alcohol use is none. FAMILY HISTORY She has 2 adult children, her son is age 45 and her daughter age 47. Her son is in good health. Her daughter has diabetes type 2 also as well as a history of migraines. Grandchildren, she has 5 grandchildren, 3 biological and 2 step. Her parents are both . Her mother at age 50 from breast cancer. Her father at age 68 from a myocardial infarction. He had history of coronary artery disease and lung problems. She is uncertain of what exactly. Marcial has 2 brothers. She is the 2nd of 3 in the family. Her older brother is age 70 and younger brother age 66. They both have health problems including diabetes, hypertension, and prostate cancer. COGNITIVE IMPAIRMENT: The mini-mental state exam was done. She scored 30. The interpretation is negative for cognitive impairment. POTENTIAL RISK FOR DEPRESSION: The PHQ-9 score was 1. She does have some difficulty sleeping at night, particularly falling back to sleep once that she is awakened and she does take a mild sleeping pill at times which leaves her with a groggy feeling in the morning. I recommended taking it earlier at night versus when she wakes up or not taking it if it is too late in the night. FUNCTIONAL ABILITY AND LEVEL OF SAFETY:Hearing Screen: She denies the use of any hearing aids. Herresponses to the Medicare annual wellness health questionnaire in regards to hearing were all negative except for some deficit in a crowded or noisy room. Vision Screen: Last eye examination was about 1 year ago. She was encouraged to schedule an eye examination. Per that diabetes guidelines, she is entitled to a yearly exam. Today reading the Snellen eye chart with corrective lenses right eye 20/40, left eye 20/25, and both eyes 20/30. She has notnoticed any changes in her vision and she is able to read and perform her activities to her satisfaction. Dental Exam: She has her own teeth in good repair. She has cleanings every 6 months. Her last dental exam was in February of 2013. ACTIVITIES OF DAILY LIVING: She is quite independent of all activities of daily living. She is able to manage her own medications. She continues to drive without restrictions and she wears her seatbelt 100% of the time. FALL RISK: She denies of any falls in the past year. She has a hobby room which is in a different building away from her house and she was cautioned particularly in the winter months to use a walkingstick or shoes with cleats to avoid falling on the way to the hobby room in back. Also precautionary guidelines were given for adding safety to the home. The house is positive for a smoke detector HEALTHCARE PROVIDERS AND LIST OF SUPPLIERS: Nicki Holt, [facility] in [place] is her primary care provider, [facility] for her dental and pharmaceutical needs. Anthony in [place] is her eye doctor and [facility] chiropractor for chiropractic needs. EDUCATION, COUNSELING AND RECOMMENDATIONS: Marcial was given the patient education from [facility] entitled Eat Well Use a Plate Method for recommendations on portion size and proper food choices. She was also given the Power of Prevention educational booklet. Page 40 of the booklet was completed with her most recent preventative services, immunizations and recommendations for updating. Lastly she was given a handout from the [employer] with a web site and 800 number to contact to getinformation on resources that are available to seniors locally and statewide. Last mammogram was May 04, 2013. Last colon screen January 03, 2009 with recommendation for a 5 year follow up. The patient was encouraged to schedule the appointment for December of 2013. Last bone density screen April of 2012 result of osteopenia. This will be due again in 2014. Last diabetes screen May 26, 2013, her A1c was 7.49%. This is up quite a bit from her previous reading. Last lipid screen February 07, 2013 total cholesterol was 160, triglycerides 119, HDL of 56 and LDL of 80. Pneumococcal vaccineDecemb2007. Diphtheria tetanus February 14, 2010. Influenza November 16, 2012. Zostavax information was given. Advanced directive: The patient currently does not have an advanced directive. One was provided for her, and she was highly encouraged to complete and return to be scanned into her record. IMPRESSION/REPORT/PLAN Plan for providers follow up: 1. She is encouraged to schedule a diabetic visit to follow up with Nicki Holt for a visit. 2. Scheduled a diabetic refresher with the storeroom keeper. 2. Recommendation for colonoscopy, colon cancer screening will be a 5 year follow up due December 2013. Patient instructed. 3. Thirdly as of note, she has quite significant osteoarthritis in both hands, which is starting to limit her hobby of quilting. 4. Marcial did express some delay in memory at times which seems to be periods of increased frequencythat she would like to discuss with her provider at her next visit. She will follow up with her provider as needed and I look forward to seeing her again in 1 year. Dianne London R.N./gene Electronically Signed By: DIANNE LONDON RN On: 06/08/2013 12:10 PM Modified by and Electronically Signed by: DIANNE OLNDON RN On: 06/08/2013 12:09 PM Co-Signed By: NICKI HOLT DNP, STAIN WIPER On: 06/10/2013 07:39 AM Source: [facility] [id number] Document Id: [id number] documented in this encounter Procedure Notes Dianne London R.N. - 06/01/2013 1:16 PM CDT Vision Testing Vision Testing Entered On: 06/01/2013 13:19 CDT Performed On: 06/01/2013 13:16 CDT by DIANNE LONDON RN Vision Testing Corrective Lenses : Glasses Eye, Right with Correction : 20/40 Eye, Left w/Correction : 20/25 Eyes, Both with Correction : 20/30 DIANNE LONDON RN - 06/01/2013 13:16 CDT Source: [facility] [employer] Document Id: [id number] CDT!6 documented in this encounter Miscellaneous Notes Miscellaneous - Dianne London R.N. - 06/01/2013 1:45 PM CDT Obstructive Sleep Apnea Obstructive Sleep Apnea Entered On: 06/01/2013 13:56 CDT Performed On: 06/01/2013 13:45 CDT by DIANNE LONDON RN JUAN Screening Known Obstructive Sleep Apnea : No - NOT diagnosed with JUAN DIANNE LONDON RN - 06/01/2013 13:45 CDT JUAN Assessment Do you have high blood pressure or have you been told to take medication for high blood pressure? : No Frequency of Snoring : Rarely (1-2 times per year) Frequency of Gasping, Choking, Snorting : Never Total Number of Historical Features : 0 Neck Circumference (cm) : 42/43 Total Sleep Apnea Clinical Score Calc : 5 DIANNE LONDON RN - 06/01/2013 13:45 CDT Source: [employer] Document Id: [id number] CDT!10 Miscellaneous - Dianne London R.N. - 06/01/2013 1:42 PM CDT PHQ-9 PHQ-9 Entered On: 06/01/2013 13:43 CDT Performed On: 06/01/2013 13:42 CDT by DIANNE LONDON RN PHQ-9 Little interest or pleasure in doing things : Not at all Feeling down, depressed, or hopeless : Not at all Trouble falling or staying asleep, or sleeping too much : Several days Feeling tired or having little energy : Not at all Poor appetite or overeating : Not at all Feeling bad about yourself or that you are a failure : Not at all Trouble concentrating on things : Not at all Moving or speaking slowly; restless or fidgety : Not at all Thoughts that you would be better off /hurting self : Not at all PHQ-9 Calculated Score : 1 Problems make work, home, or dealing with others : Not difficult at all DIANNE LONDON RN - 06/01/2013 13:42 CDT Source: [employer] Document Id: [id number] CDT!13 Miscellaneous - Dianne London R.N. - 06/01/2013 1:33 PM CDT Health Assessment Health Assessment Entered On: 06/01/2013 13:42 CDT Performed On: 06/01/2013 13:33 CDT by DIANNE LONDON RN Health Assessment Complete Health Assessment Complete or Modified : Annual Health Assessment Annual Health Assessment Completed : Yes DIANNE LONDON RN - 06/01/2013 13:33 CDT Nutrition Nutrition Risk Factors by History Adult : None Home Diet : Diabetic DIANNE LONDON RN - 06/01/2013 13:33 CDT Functional Current Daily Living Assistance : None DIANNE LONDON RN - 06/01/2013 13:33 CDT Dependent Habits Tobacco Use/Currently Using : No Exposure to Tobacco Smoke : Care provider denies smoking in home Smoking Status : Never smoker DIANNE LONDON RN - 06/01/2013 13:33 CDT Tobacco Use Grid Last Use : Never DIANNE LONDON RN - 06/01/2013 13:33 CDT Alcohol Use : No DIANNE LONDON RN - 06/01/2013 13:33 CDT Caffeine Use Grid Caffeine Use : None Frequency : Occasionally Amount : 1 cup per week DIANNE LONDON RN - 06/01/2013 13:33 CDT Recreational Drug Use Grid Drug Use : None DIANNE LODNON RN - 06/01/2013 13:33 CDT Psychosocial Domestic Abuse Concerns : None DIANNE LONDON RN - 06/01/2013 13:33 CDT Advance Directive Advanced Directives : No DIANNE LONDON RN - 06/01/2013 13:33 CDT Educ Needs Learning Style Preference Adult Grid Patient : Verbal explanation, Demonstration Family : None DIANNE LONDON RN - 06/01/2013 13:33 CDT [facility] Document Id: [id number] CDT!33 Miscellaneous - Dianne London R.N. - 06/01/2013 1:20 PM CDT Adult Calcine Furnace Tender Intake/History Adult Calcine Furnace Tender Intake/History Entered On: 06/01/2013 13:33 CDT Performed On: 06/01/2013 13:20 CDT by DIANNE LONDON biomedical engineering director Chief Complaint : Medicare Initial Annual Wellness Visit Systolic Blood Pressure : 100 mmHg Diastolic Blood Pressure : 60 mmHg NIBP Mean : 73 mmHg BP Location : Right upper extremity Blood Pressure Cuff Size : Regular Height : 158.4 cm(Converted to: 5 ft 2 inch(es), 62 inch(es)) Actual Weight : 83.6 kg(Converted to: 184 lb 5 oz) Weight Source : Standing scale Dosing Weight Clinic : 83.6 kg Clinic BSA : 1.92 Body Mass Index : 33.32 kg/m2 DIANNE LONDON RN - 06/01/2013 13:20 CDT General Info Information Given By : Patient Languages : Kyrgyz DIANNE LONDON RN - 06/01/2013 13:20 CDT Subjective Pain Symptoms : No DIANNE LONDON RN - 06/01/2013 13:20 CDT Dependent Habits Tobacco Use/Currently Using : No Exposure to Tobacco Smoke : Care provider denies smoking in home Smoking Status : Never smoker DIANNE LONDON RN - 06/01/2013 13:20 CDT Tobacco Use Grid Last Use : Never DIANNE LONDON RN - 06/01/2013 13:20 CDT Alcohol Use : No DIANNE LONDON RN - 06/01/2013 13:20 CDT Caffeine Use Grid Caffeine Use : None Frequency : Occasionally Amount : 1 cup per week DIANNE LONDON RN - 06/01/2013 13:20 CDT Recreational Drug Use Grid Drug Use : None DIANNE LONDON RN - 06/01/2013 13:20 CDT Source: [employer] Document Id: [id number] CDT!35 documented in this encounter Plan of Treatment Not on filedocumented as of this encounter Visit Diagnoses Not on filedocumented in this encounter Additional Health Concerns Assessment Noted Time PHQ-9 Depression Total Score: 1 06/01/2013 1:42 PM CD T documented as of this encounter
--- OUTSIDE RECORDS SUMMARY | 2021-09-05 08:01 | XMS_ITS | Encounter Summary ---
:1945 Author Organization [facility] Address [address] [place] [address] Care Team Providers Name Role Phone Unavailable Primary Care Provider Unavailable Encounter Details Date Type Department Care Team Description 03/13/2014 Hospital Encounter HX [facility] Nicki Holt, MAL, C.N.P., D.N.P. [address] [place], [place] [address] (Wo rk) Social History [...] - - Height 158 cm (5' 2.21) 03/13/2014 8:22 AM RN VASCULAR Body Mass Index - - documented in this encounter Medications at Time of Discharge Medication Sig Dispensed Refills Start Date End Date ASPIRIN ORAL Take 81 mg by mouth daily. Take 0 with food for heart health. documented as of this encounter Miscellaneous Notes Miscellaneous - Conversion, Historical Provider Ser - 03/13/2014 11:59 PM RN VASCULAR Coding Summary-Paper Based CODING DATE: 03/16/2014 FINAL [facility] STATUS: * Discharged to Home or Self Care PAYOR: Medicare ADMIT DX: 250.00 Diabetes Mellitus without Mention of Complication, Type II or Unspecified Type, Not Stated as Uncontrolled REASON FOR VISIT DX: 250.00 Diabetes Mellitus without Mention of Complication, Type II or Unspecified Type, Not Stated as Uncontrolled FINAL DX: PRINCIPAL: 250.00 Diabetes Mellitus without Mention of Complication, Type II or Unspecified Type, Not Stated as Uncontrolled SECONDARY: PROCEDURES DOCTOR NAME DATE NOTE: The code number assigned matches the documented diagnosis and / or procedure in the patient's chart. However, the narrative phrase printed from the coding software may appear abbreviated, or result in slightly different terminology. Coded By: DEBRA SIMON Date Saved: 03/16/2014 02:39 pm [facility] Document Id: [id number] Miscellaneous - Nicki Holt, D.N.P., C.N.P. - 03/13/2014 10:31 AM RN VASCULAR Normal Results Letter 13 March 2014 ARCHIE BAZAN [address] [place] [address] [id number] Dear ARCHIE BAZAN, Better, but we can still improve. Please follow up with us as we discussed during your visit or sooner if you have any concerns. If you have questions or concerns, please do not hesitate to call our office. Result Name Current Result Previous Result Normal Range Hgb A1c (% A1C) (H) 7.6 03/13/2014 (H) 8.3 12/12/2013 - <=5.6 Sincerely, NICKI HOLT [address] [address] Electronic Signature Electronically Signed By: NICKI HOLT DNP, RESEARCH HOME ECONOMIST On: 13 March 2014 This document has images extracted. [facility] Document Id: [id number] documented in this encounter Plan of Treatment Not on filedocumented as of this encounter Procedures Procedure Name Priority Date/Time Associated Diagnosis Comme nts HEMOGLOBIN A1C, B Routine 03/13/2014 9:03 AM Res ults for this RN VASCULAR procedure are i n the results section. documented in this encounter Results (ABNORMAL) Hemoglobin A1c (03/13/2014 9:03 AM RN VASCULAR) P athologist Signature Hemoglobin A1c, 7.6 (H) <=5.6 A1C POWERCHART B Specimen (Source) Anatomical Collection Method Collection Time Re ceived Time Location / / Volume Laterality Blood 03/13/2014 9:03 AM RN VASCULAR Nicki Holt APRN, C.N.P., D.N.P. LAB BLOOD ADD- ON Performing Organization Address City/State/ZIP Code Phon e Number POWERCHART documented in this encounter Visit Diagnoses Not on filedocumented in this encounter Additional Health Concerns Assessment Noted Time PHQ-9 Depression Total Score: 1 06/01/2013 1:42 PM CD T documented as of this encounter
--- OUTSIDE RECORDS SUMMARY | 2021-09-05 08:01 | XMS_ITS | Encounter Summary ---
:1945 Author Organization [facility] Address [address] [place] [id number] Care Team Providers Name Role Phone Unavailable Primary Care Provider Unavailable Encounter Details Date Type Department Care Team Description 11/22/2014 Hospital Encounter HX [facility] Gail Cortez M.D. [address] [phone] (Wo rk) Social History Tobacco Use Types [...] - - Height 158 cm (5' 2.21) 11/22/2014 7:34 AM CDT Body Mass Index - - documented in this encounter Medications at Time of Discharge Medication Sig Dispensed Refills Start Date End Date ASPIRIN ORAL Take 81 mg by mouth daily. Take 0 with food for heart health. documented as of this encounter Miscellaneous Notes Miscellaneous - Gail Cortez M.D. - 11/27/2014 7:09 AM CDT Normal Results Letter 27 November 2014 ARCHIE BAZAN [address] [place] [id number] Dear ARCHIE BAZAN, Please review your results below. Overall, things are stable. Your A1c was a little better at 7.5%. Please continue to follow a healthy diet and regular exercise routine. We will not make any medication changes. Please follow up with us as we discussed during your visit or sooner if you have any concerns. If you have questions or concerns, please do not hesitate to call our office. Result Name Current Result Previous Result Normal Range U Albumin (mg/L) (L) <12.0 11/22/2014 (L) <12.0 12/12/2013 12.0 - 30.0 U Creatinine (mg/dL) 44.4 11/22/2014 96.2 12/12/2013 30.0 - 125.0 U Alb/Creatinine Ratio (mg/gm) (H) <27 11/22/2014 <12 12/12/2013 0 - 25 Sodium Lvl (mM/L) 144.4 11/22/2014 138.6 12/12/2013 135.0 - 145.0 Potassium Lvl (mmol/L) 4.3 11/22/2014 4.0 12/12/2013 3.6 - 4.8 Chloride (mmol/L) 107 11/22/2014 103 12/12/2013 98 - 107 CO2 (mmol/L) 24.6 11/22/2014 24.6 12/12/2013 23.0 - 29.0 AGAP (mmol/L) 17 11/22/2014 15 12/12/2013 10 - 20 Glucose Fasting (mg/dL) (H) 148 11/22/2014 70 - 99 Creatinine (mg/dL) 0.89 11/22/2014 0.79 12/12/2013 0.60 - 1.30 EGFR (MDRD) (mL/min/1.73m2) >60 11/22/2014 >60 12/12/2013 >=60 - EGFR (MDRD) (mL/min/1.73m2) >60 11/22/2014 >60 12/12/2013 >=60 - BUN (mg/dL) 18 11/22/2014 15 12/12/2013 7 - 18 Calcium Lvl (mg/dL) 9.3 11/22/2014 9.8 12/12/2013 8.8 - 10.2 Cholesterol (mg/dL) 160 11/22/2014 184 12/12/2013 - <=199 Trig (mg/dL) (H) 162 11/22/2014 (H) 199 12/12/2013 - <=149 HDL (mg/dL) 51 11/22/2014 56 12/12/2013 >=50 - LDL Calculated (mg/dL) 77 11/22/2014 (L) 88 12/12/2013 [id number] - <=129 Chol/HDL Ratio 3 11/22/2014 3 12/12/2013 Hgb A1c (% A1C) (H) 7.5 11/22/2014 (H) 7.6 03/13/2014 - <=5.6 Sincerely, GAIL VILLAR [address] [id number] Electronic Signature Electronically Signed By: GAIL VILLAR MD On: 27 November 2014 This document has images extracted. Source: [facility] POWERCHART Document Id: [id number] Electronically signed by Conversion, [facility] Instructional Technology Instructor [id number] at 07/14/2016 3:43 AM CDT documented in this encounter Plan of Treatment Not on filedocumented as of this encounter Procedures Procedure Name Priority Date/Time Associated Comments Diagnosis ALBUMIN, RANDOM, U Routine 11/22/2014 7:58 AM Re sults for this CDT procedure are i n the results section. LIPID PANEL, S Routine 11/22/2014 7:48 AM Result s for this CDT procedure are i n the results section. HEMOGLOBIN A1C, B Routine 11/22/2014 7:48 AM Res ults for this CDT procedure are i n the results section. BASIC METABOLIC Routine 11/22/2014 7:48 AM Resul ts for this PANEL, S/P CDT procedure are i n the results section. documented in this encounter Results (ABNORMAL) Microalbumin, Random, Urine (11/22/2014 7:58 AM CDT) Analysis Performed At Patho logist Time Signature HXU Albumin % <12.0 (L) 12.0 - POWERCHART 30.0 MGL Creatinine, 44.4 30.0 - POWERCHART Random, U 125.0 MGDL Albumin/Creati <27 (H) 0 - 25 POWERCHART nine Ratio MGGM Specimen (Source) Anatomical Collection Method Collection Time Re ceived Time Location / / Volume Laterality Urine 11/22/2014 7:58 AM CDT Gail Haas M.D. LAB URINE ORDERABLES Performing Organization Address City/State/ZIP Code Phon e Number POWERCHART (ABNORMAL) BMP (Basic Metabolic Panel) (11/22/2014 7:48 AM CDT) P athologist Signature Anion Gap 17 10 - 20 POWERCHART MMOLL BUN (Blood 18 7 - 18 POWERCHART Urea MGDL Nitrogen), S Chloride, S 107 98 - 107 POWERCHART MMOLL CO2 Total 24.6 23.0 - POWERCHART 29.0 MMOLL Creatinine, S 0.89 0.60 - POWERCHART 1.30 MGDL Glucose, 148 (H) 70 - 99 POWERCHART Fasting, S MGDL Calcium, 9.3 8.8 - 10.2 POWERCHART Total, S MGDL Sodium, S 144.4 135.0 - POWERCHART 145.0 MML Potassium, S 4.3 3.6 - 4.8 POWERCHART MMOLL HXeGFR (MDRD) >60 >=60 POWERCHART [id number] eGFR >60 >=60 POWERCHART Black/ [id number] [place] Specimen (Source) Anatomical Collection Method Collection Time Re ceived Time Location / / Volume Laterality Blood 11/22/2014 7:48 AM CDT Gail Haas M.D. LAB BLOOD ADD-ON Performing Organization Address City/State/ZIP Code Phon e Number POWERCHART (ABNORMAL) Lipid Panel (11/22/2014 7:48 AM CDT) P athologist Signature Cholesterol, 160 <=199 MGDL POWERCHART Total Comment: 2014 National Lipid Association recommen dations for Total Cholesterol in adults ages 18 and up: Desirable <200 mg/dL Borderline high 200-239 mg/dL High 240 mg/dL 2014 National Lipid Association recommen dations for Total Cholesterol in children ages 2 to 17. Acceptable <170 mg/dL Borderline High 170-199 mg/dL High 200 mg/dL HX HDL 51 >=50 MGDL POWERCHART Comment: 2014 National Lipid Association recommen dations for HDL-C in adults ages 18 and up: Low <40 mg/dL (Men) Low <50 mg/dL (Women) 2014 National Lipid Association recommen dations for HDL-C in children ages 2 to 17. Low <40 mg/dL Borderline Low 40-45 mg/dL Acceptable >45 mg/dL Triglycerides 162 (H) <=149 MGDL POWERCHART Comment: 2014 National Lipid [...] assessment when triglycerides are >400mg/dL. Calculated LDL 77 <=129 MGDL POWERCHART Comment: 2013 National Lipid [...] esting for FH and FDB is available [facility]: FH/ADH Genetic Reflex Case el (test ADHP). Acquired (non-genetic) causes of markedly increased LDL cholesterol include cholestatic liver disease due to the presence of LpX. If a genetic form of hypercholesterolemia is suspected, family studies including biochemical testing fo r lipids (total cholesterol,triglycerides, LDL cholesterol and HDL cholesterol) are recommended. ??Please contact the laboratory at or the on-line test catalog at [employer] for information about how to order these miky ts or to speak with a genetic counselor. Further interpretation would require clinical information. Total Cholesterol/HDL Ratio 3 PO WERCHART Specimen (Source) Anatomical Collection Method Collection Time Re ceived Time Location / / Volume Laterality Blood 11/22/2014 7:48 AM CDT Gail Haas M.D. LAB BLOOD ADD-ON Performing Organization Address City/State/ZIP Code Phon e Number POWERCHART (ABNORMAL) Hemoglobin A1c (11/22/2014 7:48 AM CDT) P athologist Signature Hemoglobin A1c, 7.5 (H) <=5.6 A1C POWERCHART B Specimen (Source) Anatomical Collection Method Collection Time Re ceived Time Location / / Volume Laterality Blood 11/22/2014 7:48 AM CDT Gail Haas M.D. LAB BLOOD ADD-ON Performing Organization Address City/State/ZIP Code Phon e Number POWERCHART documented in this encounter Visit Diagnoses Not on filedocumented in this encounter Additional Health Concerns Assessment Noted Time PHQ-9 Depression Total Score: 7 06/21/2014 9:20 AM CD T documented as of this encounter
--- OUTSIDE RECORDS SUMMARY | 2021-09-05 08:01 | XMS_ITS | Encounter Summary ---
:1945 Author Organization [facility] Address [address] [place] [address] Care Team Providers Name Role Phone Unavailable Primary Care Provider Unavailable Encounter Details Date Type Department Care Team Description 05/04/[address] [facility] Asha Rmaon, MAL, C.N.P., D. N.P. [address] [place], [place] [address] (Wo rk) Social History [...] Concentration - - Weight - - Height 162 cm (5' 3.78) 05/04/2013 8:03 AM CDT Body Mass Index - - documented in this encounter Medications at Time of Discharge Medication Sig Dispensed Refills Start Date End Date ASPIRIN ORAL Take 81 mg by mouth daily. Take 0 with food for heart health. documented as of this encounter Plan of Treatment Not on filedocumented as of this encounter Visit Diagnoses Not on filedocumented in this encounter
--- OUTSIDE RECORDS SUMMARY | 2021-09-05 08:01 | XMS_ITS | Encounter Summary ---
:1945 Author Organization [facility] Address [address] [place] [address] Care Team Providers Name Role Phone Unavailable Primary Care Provider Unavailable Encounter Details Date Type Department Care Team Description 03/13/2014 Hospital Encounter HX [facility] Nicki Holt, MAL, C.N.P., D. N.P. [address] [place] [address] (Wo rk) Social History Tobacco [...] Sign Reading Time Taken Comments Blood Pressure 120/76 03/13/2014 8:32 AM PORCELAIN MIXER Pulse 68 03/13/2014 8:32 AM PORCELAIN MIXER Temperature - - Respiratory Rate 16 03/13/2014 8:32 AM PORCELAIN MIXER Oxygen Saturation - - Inhaled Oxygen Concentration - - Weight 87.3 kg (192 lb 7.4 oz) 03/13/2014 8:32 AM PORCELAIN MIXER Height 158 cm (5' 2.21) 03/13/2014 8:32 AM PORCELAIN MIXER Body Mass Index 34.97 03/13/2014 8:32 AM PORCELAIN MIXER documented in this encounter Medications at Time of Discharge Medication Sig Dispensed Refills Start Date End Date ASPIRIN ORAL Take 81 mg by mouth daily. Take 0 with food for heart health. documented as of this encounter Progress Notes Nicki Holt D.N.P., C.N.P. - 03/13/2014 8:29 AM CST [id number] CHIEF COMPLAINT/REASON FOR VISIT Follow up type 2 diabetes mellitus. HISTORY OF PRESENT ILLNESS Patient is a 68-year-old female who presents to clinic today with a history of type 2 diabetes mellitus diagnosed since 2007. She has utilized metformin extended release, taking 500 mg by mouth 2 times a day which she has well tolerated, however, any increase in dosing she has GI upset. She has been on glipizide in the past. However, in the past she has also utilized a Health Pharmaceutical Analyst here at the [facility] in [place] (whose services are no longer available) in which she had significant reduction in weight and overall improvement of her hemoglobin A1c. After the Health Pharmaceutical Analyst services were no longer available the patient indicates that she has regressed and actually has gained all the weight back. She indicates that she is aware her blood sugars continue being elevated. Her last hemoglobin A1c was noted to be 8.3% on December 12, 2013. She does indicate that she has tried to make a little bit of some improvements but could be doing a little better overall. She has been on glipizide 2.5 mg up to 5 mg by mouth daily in the past. She is wondering if this needs to be reinstated at this time. She otherwise indicates that she is not having any other further concerns or issues this time. PAST MEDICAL/SURGICAL HISTORY Reviewed. Please see chart. FAMILY HISTORY Reviewed. Please see chart. MEDICATIONS Reviewed. Please see chart. ALLERGIES Reviewed. Please see chart. PHYSICAL EXAMINATION GENERAL: Patient is alert, well-nourished, 68-year-old female, otherwise appears to be in no acute distress. HEAD: Normocephalic, atraumatic. HEART: Sounds are regular. S1, S2 with a grade 2 systolic murmur located left 2nd intercostal space radiating to the left axillary area on examination. LUNGS: Bilaterally clear. EXTREMITIES: No lower extremity edema was noted on exam. DIAGNOSTICS Hemoglobin A1c noted to be 7.6%. IMPRESSION/REPORT/PLAN Type 2 diabetes mellitus. PLAN: Discussed the overall findings at length with the patient. Presently, at this time, I indicated that I felt that initiating glipizide back into her medication regimen would be of benefit. She was initiated on glipizide 2.5 mg by mouth daily with the plan that she increase to a 5 mg dosing. She may take 2.5 mg by mouth 2 times a day, however, we will have her check her blood sugars in the morning and prior to each meal with follow up in 2 weeks' duration for ongoing evaluation. Side effects of the medication again were discussed at length with the patient. The patient felt very comfortable with this treatment plan. She otherwise denied having any further questions or concerns. Patient ambulated out of the clinic in no acute distress. Ready to learn. No apparent learning barriers were identified. Learning preferences include listening. Explained diagnosis and treatment plan. Patient/Child/Caregiver expressed understanding of the content. Nicki Holt D.N.P./NereidaN.Payal/gene Electronically Signed By: NICKI HOLT DNP, FNP On: 03/14/2014 07:28 AM Source: [facility] MHSDOLBEYNONRADSYS Document Id: [id number] ELAIN MIXER documented in this encounter Miscellaneous Notes Miscellaneous - Nicki Holt D.N.P., C.N.P. - 03/13/2014 9:35 AM PORCELAIN MIXER Ambulatory Patient Summary [address] [id number] Visit Information Name: ARCHIE BAZAN [facility] Number: [id number] Current Date: 03/13/2014 09:35:16 Physicians Attending Provider: NICKI HOLT DNP, FNP Primary Care Provider: NICKI HOLT DNP, FNP ARCHIE BAZAN has been given the following [...] 2 cap, Oral, two times a day glipiZIDE (glipiZIDE 5 mg oral tablet) 0.5 -1 tab(s), Oral, once a day 30 minutes before breakfast New Routed to [place] [id number] levothyroxine (levothyroxine 75 mcg (0.075 mg) oral tablet) 1 Tablet(s), Oral, once a day for thyroid replacement metFORMIN (metFORMIN 500 mg oral tablet, extended release) 1 Tablet(s), Oral, two times a day This is a CHANGE potassium acetate (potassium acetate) 1tab, Oral, once a day OTC simvastatin (simvastatin 10 mg oral tablet) 1 Tablet(s), Oral, once a day (at bedtime) Take for highcholesterol. Stop Taking the Following Medications: Medication list as of 03-13-14 09:35 Attention: If you have any medications at home that are not on this list, DO NOT take them until youcontact your provider for clarification. Give a copy of your medication list to your primary care provider. Update your medication list any time medications or doses are changed and carry your medication list at all times in case of emergency. Electronically Signed By: NICKI HOLT DNP, RIA Signed On:13-MAR-2014 09:35:03 Your Allergies & Intolerances Substance Reaction Symptoms [...] 3 and 4 had no useable data. Other Osteoporosis Active 09/14/2002 05/14/13 Other osteoporosis Your Upcoming Appointments Date Time Location Provider No Appointments found Attention: Contact your local Clinic if further appointment detail needed. Your Goals/Additional instructions: Source: [facility] POWERCHART Document Id: [id number] ELAIN MIXER Miscellaneous - Nicki Holt D.N.P., C.N.P. - 03/13/2014 9:35 AM PORCELAIN MIXER Ambulatory Discharge Medication List [address] [id number] Visit Information Name: ARCHIE BAZAN PAU [facility] Number: [id number] Visit Date: 03/13/2014 09:35:13 Attending Provider: NICKI HOLT DNP, FNP Primary Care Provider: NICKI HOLT DNP, FNP ARCHIE BAZAN has been given the following [...] 2 cap, Oral, two times a day glipiZIDE (glipiZIDE 5 mg oral tablet) 0.5 -1 tab(s), Oral, once a day 30 minutes before breakfast New Routed to [address] [address] levothyroxine (levothyroxine 75 mcg (0.075 mg) oral tablet) 1 Tablet(s), Oral, once a day for thyroid replacement metFORMIN (metFORMIN 500 mg oral tablet, extended release) 1 Tablet(s), Oral, two times a day This is a CHANGE potassium acetate (potassium acetate) 1tab, Oral, once a day OTC simvastatin (simvastatin 10 mg oral tablet) 1 Tablet(s), Oral, once a day (at bedtime) Take for highcholesterol. Stop Taking the Following Medications: Medication list as of 03-13-14 09:35 Attention: If you have any medications at home that are not on this list, DO NOT take them until youcontact your provider for clarification. Give a copy of your medication list to your primary care provider. Update your medication list any time medications or doses are changed and carry your medication list at all times in case of emergency. Electronically Signed By: NICKI HOLT DNP, THERAPEUTIC RIDING INSTRUCTOR Signed On:13-MAR-2014 09:35:03 Additional Information: Source: [facility] POWERCHART Document Id: [id number] ELAIN MIXER Miscellaneous - Vitaliy Darnell L.P.N. - 03/13/2014 8:32 AM CST Adult Produce Weigher Intake/History Adult Produce Weigher Intake/History Entered On: 03/13/2014 8:48 PORCELAIN MIXER Performed On: 03/13/2014 8:32 PORCELAIN MIXER by VITALIY DARNELL LPN Intake Temperature Core : 36.4 DegC(Converted to: 97.5 DegF) (LOW) Peripheral Pulse Rate : 68 /min Respiratory Rate : 16 /min Heart Rhythm : Regular Systolic Blood Pressure : 120 mmHg Diastolic Blood Pressure : 76 mmHg NIBP Mean : 91 mmHg BP Location : Left upper extremity Blood Pressure Cuff Size : Large DARNELLVITALIY [facility] - 03/13/2014 8:50 PORCELAIN MIXER Height : 158 cm(Converted to: 5 ft 2 inch(es), 62 inch(es)) Actual Weight : 87.3 kg(Converted to: 192 lb 7 oz) Weight Source : Standing scale Dosing Weight Clinic : 87.3 kg Clinic BSA : 1.96 Body Mass Index : 34.97 kg/m2 VITALIY DARNELL [facility] - 03/13/2014 8:32 PORCELAIN MIXER General Info Information Given By : Patient Preferred Communication Mode : Verbal Languages : Persian Is Patient Female and 13-50 no hysterectomy : No VITALIY DARNELL LPN 03/13/2014 8:32 PORCELAIN MIXER Subjective Pain Symptoms : No VITALIY DARNELL ESTIMATOR LUMBER - 03/13/2014 8:32 PORCELAIN MIXER Dependent Habits Tobacco Use/Currently Using : No Tobacco Use/Last 12 months : No Tobacco Use/Advised to Quit : No Exposure to Tobacco Smoke : Care provider denies smoking in home Smoking Status : Never smoker VITALIY DARNELL [facility] - 03/13/2014 8:32 PORCELAIN MIXER Tobacco Use Grid Last Use : Never VITALIY DARNELL [facility] - 03/13/2014 8:32 PORCELAIN MIXER Alcohol Use : No VITALIY DARNELL LPN 03/13/2014 8:32 PORCELAIN MIXER Caffeine Use Grid Caffeine Use : None Frequency : Occasionally Amount : 1 cup per week VITALIY DARNELL [facility] 03/13/2014 8:32 PORCELAIN MIXER Recreational Drug Use Grid Drug Use : None VITALIY DARNELL LPN - 03/13/2014 8:32 PORCELAIN MIXER ID Screen Drug Resistant Organism : No Travel Within Last 21 Days : No VITALIY DARNELL LPN - 03/13/2014 8:32 PORCELAIN MIXER Source: [employer] POWERCHART Document Id: [id number] PORCELAIN MIXER!11 ELAIN MIXER Telephone Encounter - Conversion, Historical Provider Ser - 12/21/2013 12:24 PM CST diarrhea Document Contains Addenda Addendum by JENA BEYER V on 23 December 2013 10:56:18 PORCELAIN MIXER Pt called but only able to LVM Addendum by NICKI HOLT DNP, FNP on 23 December 2013 10:46:40 PORCELAIN MIXER From: NICKI HOLT DNP, FNP To: [place] [facility] Line; Sent: 12/23/2013 10:46:40 PORCELAIN MIXER Subject: RE: diarrhea Addendum by NICKI HOLT DNP, FNP on 23 December 2013 10:46:37 PORCELAIN MIXER pt. to give it more time, her diarrhea may have been from a gastroentesital viral infection. pleaseadvise. Addendum by JENA BEYER V on 22 December 2013 08:58:24 PORCELAIN MIXER From: JENA BEYER V ([place] Nurse [facility]) To: NICKI HOLT DNP, FNP; Sent: 12/22/2013 08:58:24 PORCELAIN MIXER Subject: RE: diarrhea Pt reported she picked up the 1000mg ER not immediate release. Pharmacy contacted & verified this, so diarrhea in NOT from IR .Should pt just give it a bit more time? Or fill the new RX for 500mg ER x2 tabs & divide the dosing? Addendum by NICKI HOLT DNP, FNP on 22 December 2013 05:33:14 PORCELAIN MIXER From: NICKI HOLT DNP, FNP To: [place] Nurse Line; Sent: 12/22/2013 05:33:14 PORCELAIN MIXER Subject: RE: diarrhea Addendum by NICKI HOLT DNP, FNP on 22 December 2013 05:33:06 PORCELAIN MIXER I had originally ordered 1000 ER but she told me due to cost the 500 was cheaper, so I ordered the 500 (but this was not ER), I just sent a new script for the 500 ER to take 2 tabs daily, please inform pt. thank you. From: JENA BEYER V ([place] Nurse Line) To: NICKI HOLT DNP, FNP; Sent: 12/21/2013 12:24:09 PORCELAIN MIXER Subject: diarrhea Pt spoke w/ Expert RN this AM as has diarrhea from Metformin. Had this in the past when on this medication but got better when you switched her to ER formula. Pt indicated she was suprised to have diarrhea as you ordered ER again. Review of meds shows you ordered both IR & ER. Pt advised you aren't here today but would review message tomorrow. Pt requested you call her @ above # to discuss Source: [facility] [employer] Document Id: [id number] Miscellaneous - Nicki Holt, D.N.P., C.N.P. - 12/20/2013 8:26 PM PORCELAIN MIXER Normal Results Letter 20 December 2013 ARCHIE BAZAN [address] [place] [id number] Dear ARCHIE BAZAN, I am pleased to report that your Pap results were normal! Your next pap will be due in November or 2016!!! Please follow up with us as we discussed during your visit or sooner if you have any concerns. If you have questions or concerns, please do not hesitate to call our office. Sincerely, NICKI HOLT [address] [address] Electronic Signature Electronically Signed By: NICKI HOLT DNP, FNP On: 20 December 2013 This document has images extracted. Source: [facility] Document Id: [id number] documented in this encounter Plan of Treatment Not on filedocumented as of this encounter Visit Diagnoses Not on filedocumented in this encounter Additional Health Concerns Assessment Noted Time PHQ-9 Depression Total Score: 1 06/01/2013 1:42 PM CD T documented as of this encounter
--- OUTSIDE RECORDS SUMMARY | 2021-09-05 08:01 | XMS_ITS | Encounter Summary ---
:1945 Author Organization [facility] Address [address] [place] [id number] Care Team Providers Name Role Phone Unavailable Primary Care Provider Unavailable Encounter Details Date Type Department Care Team Description 08/24/2012 - Hospital Encounter HX [facility] Asha Holt 02/21/2013 AURELIANO Anderson APRN, C.N.P., D.N.P. [address] [place] [address] Social History Tobacco Use Types Packs/Day Years [...] - Inhaled Oxygen Concentration - - Weight 80.7 kg (177 lb 14.6 oz) 11/18/2012 12:36 PM CDT Height - - Body Mass Index 30.64 11/16/2012 8:50 AM CDT documented in this encounter Discharge Summaries Chilango Lovell, P.T. - 09/02/2012 12:00 AM CDT [id number] IMPRESSION/REPORT/PLAN This patient came in today with continued issues in her shoulder. She did have an MRI performed andshe does show that she has a complete thickness tear of the supraspinatus. This is approximately a 1 cm in diameter tear. At this point, we felt that we should have patient see an orthopedic at this time. We did instruct her what further exercises she can do. She is to continue doing these exercises along with the pulleys at home. She is uncertain as to whether or not she wants to just give thistime see if it heals or if she wants to follow-up with an computer operations specialist. Her strength remains quite good overall. However, she still has difficulty bringing her arm up over 90 degrees. This m akes it difficult in managing her hair and other activities related to dressing herself. Vacuuming is still difficult for her. She states she is still limited in activity she wants to do overall. G code at discharge is 8983 with a modifier of CJ, which is still 20% to 39% impaired. ASSESSMENT: At this time, the patient continues to have shoulder issues. She will possibly see an computer operations specialist. PLAN: At this time, the patient will be discharged from physical therapy. We may follow-up with further therapy at a later time should she choose to do so. We may also have follow-up after she sees an computer operations specialist. Otilio Montez/shi Electronically Signed By: CHILANGO LOVELL On: 09/06/2012 07:02 AM Source: [facility] MHSDOLBEYNONRADSYS Document Id: [id number] documented in this encounter Medications at Time of Discharge Medication Sig Dispensed Refills Start Date End Date ASPIRIN ORAL Take 81 mg by mouth daily. Take 0 with food for [employer]. documented as of this encounter Progress Notes Chilango Lovell P.T. - 08/27/2012 12:00 AM CDT [id number] IMPRESSION/REPORT/PLAN Marcial comes in today stating that she has been aggressive with her exercises at home. We did continue with passive range of motion for the shoulder today. We are able to increase the shoulder flexion at the present time to 150 to 155 degrees. External rotation is still somewhat limited, this goingto approximately 45 degrees. Internal rotation is most limited though she can bring her hand behindher back to approximately the PSIS. Once again, we did check strength and this does not appear to be rotator cuff involvement. We did review her exercises as well. She is to continue with these exercises. Total time today was 30 minutes of manual. ASSESSMENT: The patient is with increased mobility at this time. Plan will be to follow-up next week. Otilio Montez/kena DOCID: [110] Electronically Signed By: CHILANGO LOVELL On: 08/31/2012 02:18 PM Source: [facility] Document Id: [id number] documented in this encounter Consult Notes Chilango Lovell P.T. - 08/24/2012 12:00 AM CDT [id number] CHIEF COMPLAINT/REASON FOR VISIT This patient comes in with complaints of pain in her right arm. She notes that she feels this happened approximately 6 months ago when she was stepping out of a pickup. She was hanging on with her right hand to the pickup when she slipped and she felt a tug in her shoulder. After that time, she hadlittle pain but this did heal and she was without pain for a considerable amount of time. This is the only incident that she can remember which may caused such an issue at this time. She presently states that she has minimal pain, this being no more than 1 to 2 on a 0 to 10 pain scale. However, shehas become very limited with her mobility. She states it is difficult combing her hair at this time. She has difficulty putting on her coat and also dressing herself. She is having difficulty bringing anything above 90 degrees. She notes that she has tried chiropractic which has not helped over the last several weeks. She notes that activity and lifting will make this more agitated and painful.She does feel that heat does help along with ice as needed. She cannot palpate anything in the shoulder that is painful in particular. It is basically most painful when she tries to move it. CURRENT MEDICATIONS She is on metformin along with aspirin and medication for thyroid. IMPRESSION/REPORT/PLAN Upon observation, the patient ambulates into therapy without difficulty. She did perform a tug test. She is not a fall risk at this time. With patient in standing, she did show which she could do for shoulder flexion. She is able to bring her shoulder to approximately 85 to 90 degrees actively. At this point, she has some limitations. She is also limited with internal rotation behind her back.External rotation is also limited and painful. We did check this all passively. Passively she is able to bring her shoulder to 100 degrees. There is pain at this point. Internal rotation, she is able to bring her hand to approximately L4-L5. External rotation is to approximately 30 degrees. Again, there is pain at pathological end range. We did check her overall strength. Presently, she does not present as having a rotator cuff injury at this time. There is some weakness but this does not appear to be related to any type of tear. Some of this is more related to pain. Reflexes are symmetrical bilaterally. Sensory is intact. It is noted that that patient is diabetic. We did have patient lie supine and we did check her mobility this way. In presentation, the patient presents with whatappears to be adhesive capsulitis. We did treat patient today with hot packs to the shoulder times 20 minutes followed by passive range of motion for both flexion/external rotation and internal rotation. After a considerable amount of manual techniques, we were able to obtain shoulder flexion to 130degrees. External rotation was to approximately 45 degrees with internal rotation still quite limited to approximately L4-L5. We did instruct patient with alison exercises to do at home along with towel exercises to work on internal rotation. She is to do this at least 2 times a day if possible fordurations of 5 to 10 minutes. The patient did fill out the [employer] [facility] score. Based upon this, G-code would be G8981 with a modifier of CJ, this being 20% to 39% impaired. GOALS: 1. Patient able to wash her hair and perform normal hygiene within 3 to 4 weeks. 2. Patient independent with home exercises addressing mobility and strength. 3. Patient able to actively bring right arm above her head to 150 degrees or more. G-code for goals would be G8982 with a modifier of CI, this being 1 to 19% impaired. Plan of care will be modalities if necessary along with manual techniques and strengthening. Prognosis is good. ASSESSMENT: At this time, the patient appears to have adhesive capsulitis of the right shoulder. As noted, she is diabetic and she has a higher prevalence for this. Plan will be to see patient 1 to 2 times a week for the next 3 to 4 weeks. She is to be aggressive with her home exercises which wereinstructed to her. Pulleys were also given to her. Otilio Montez/shi cc: Vickey Holt D.N.P./Stanislav.N.P Electronically Signed By: CHILANGO LOVELL On: 08/31/2012 02:32 PM Co-Signed By: VICKEY HOLT [facility] On: 09/06/2012 08:30 AM Source: [facility] Document Id: [id number] documented in this encounter Miscellaneous Notes Miscellaneous - Ashley Cardoza L.P.N. - 11/18/2012 12:36 PM CDT Ambulatory Vitals Height Weight Ambulatory Vitals Height Weight Entered On: 11/25/2012 12:36 CDT Performed On: 11/18/2012 12:36 CDT by ASHLEY CARDOZA LPN Vitals/Ht/Wt Actual Weight : 80.7 kg(Converted to: 177 lb 15 oz) Weight Source : Standing scale Dosing Weight Clinic : 80.7 kg ASHLEY CARDOZA LPN - 11/25/2012 12:36 CDT Source: [facility] POWER[facility]ART Document Id: [id number]!5 Miscellaneous - Conversion, Historical Provider Ser - 10/11/2012 10:37 AM CDT decrease BP med From: JENA BEYER V To: VICKEY HOLT DNP, FNP; JENA BEYER V; Sent: 10/11/2012 10:37:43 CDT Subject: decrease BP med Pt reports she got BP cuff to monitor @ home .BP has been 110-112/64-66 & she wonders if youare going to decrease or D/C her Norvasc 2.5mg daily as discussed @ last visit. Is tolerating dose well . Decrease not mentioned in notes. Advised pt I would update you about her home readings but thatradha is on a low dose & with her diabetes you most likely not D/C or decrease. Please advise Source: [facility] POWER[facility]ART Document Id: [id number] Miscellaneous - Petra Lopez L.PJairoN. - 10/11/2012 10:24 AM CDT General Message Document Contains Addenda Addendum by VICKEY HOLT DNP, FNP on 11 October 2012 12:37:13 CDT From: VICKEY HOLT DNP, FNP To: PETRA LOPEZ LPN; Sent: 10/11/2012 12:37:13 CDT Subject: RE: General Message Addendum by VICKEY HOLT DNP, FNP on 11 October 2012 12:37:01 CDT From: VICKEY HOLT DNP, FNP To: PETRA LOPEZ LPN; Sent: 10/11/2012 12:37:01 CDT Subject: RE: General Message Addendum by VICKEY HOLT DNP, FNP on 11 October 2012 12:36:58 CDT that sounds fine, thank you. Addendum by PETRA LOPEZ LPN on 11 October 2012 12:10:39 CDT From: PETRA LOPEZ LPN To: VICKEY HOLT DNP, FNP; Sent: 10/11/2012 12:10:39 CDT Subject: RE: General Message Patient called and updated she already ran out of the simvastatin but she will get lab work completed the next time she has her TSH checked if that is ok she will continue to monitor B/P and follow up as needed Thanks Petra Addendum by VICKEY HOLT DNP, FNP on 11 October 2012 11:35:38 CDT From: VICKEY HOLT DNP, FNP To: PETRA LOPEZ LPN; Sent: 10/11/2012 11:35:38 CDT Subject: RE: General Message Addendum by VICKEY HOLT DNP, FNP on 11 October 2012 11:35:35 CDT I am fine with stopping both! I would like her to stop in then and get a cholesterol check so we can get an accurate measurement of her cholesterols just before she stops the simvastatin. Also, she isto watch her blood pressures closely and call me if they do not stay less than 120/80 at rest. Lino. From: PETRA LOPEZ LPN To: VICKEY HOLT DNP, FNP; Sent: 10/11/2012 10:24:01 CDT ! Subject: General Message Patient had called about refilling her Simvastatin and Norvasc so call forwarded to Triage I did speak with patient and she reports that you had discussed stopping those medications if her Blood pressure stayed down she reports she has monitored at home and they generally run around 110/65 her last lipids where in June 15 Chol 124, trig 107, hdl 54, ldl 49 please advise if patient is able to discontinue Norvasc and Simvastatin or if we should continue with the refill process a message may be leftfor patient on her voicemail if unable to reach per her request Toi Callahan Source: [facility] POWER[facility]ART Document Id: [id number] Electronically signed by Conversion, [facility] [employer] Supervisor [id number] at 07/16/2016 1:01 AM CDT Miscellaneous - Sylvia Darnell L.PJairoN. - 09/08/2012 3:20 PM CDT General Message Document Contains Addenda Addendum by VICKEY HOLT DNP, FNP on 13 September 2012 11:45:38 CDT noted. Addendum by SYLVIA DARNELL LPN on 13 September 2012 11:32:16 CDT From: SYLVIA DARNELL LPN To: VICKEY HOLT DNP, FNP; Sent: 09/13/2012 11:32:16 CDT Subject: FW: General Message Spoke with Marcial and keanu with waiting till September for Dr. Velasco. Appointment set up with Dr. Velasco([facility]) in [place] 10/06/12 at 1350. Marcialn aware to bring CD and report of MRI. Addendum by SYLVIA DARNELL LPN on 13 September 2012 11:30:23 CDT From: SYLVIA DARNELL LPN To: SYLVIA DARNELL LPN; Sent: 09/13/2012 11:30:23 CDT Subject: FW: General Message Addendum by VICKEY HOLT DNP, FNP on 09 September 2012 15:18:36 CDT noted. From: SYLVIA DARNELL LPN To: VICKEY HOLT DNP, FNP; Sent: 09/08/2012 15:20:17 CDT Subject: General Message Spoke with Nathalie to set patient up with Dr. Velasco in [facility]. Booked till 10/06/12. Will talk with patient next wk when she gets back from vacation. Source: [facility] POWER[facility]ART Document Id: [id number] Electronically signed by [facility], [facility] [employer] Supervisor [id number] at 07/16/2016 1:01 AM CDT documented in this encounter Plan of Treatment Not on filedocumented as of this encounter Visit Diagnoses Not on filedocumented in this encounter
--- OUTSIDE RECORDS SUMMARY | 2021-09-05 08:01 | XMS_ITS | Encounter Summary ---
:1945 Author Organization [facility] Address [address] [place] [address] Care Team Providers Name Role Phone Unavailable Primary Care Provider Unavailable Encounter Details Date Type Department Care Team Description 11/18/2012 Hospital Encounter HX [facility] Nicki Anthony, MAL, C.N.P., D. N.P. [address] [place] [address] (Wo rk) Social History Tobacco [...] by mouth daily. Take 0 with food [employer] [facility]. documented as of this encounter Progress Notes Conversion, Historical Provider Ser - 11/18/2012 9:20 AM CDT [id number] HEALTH AND WELLNESS COACHING Patient was seen at [facility] in [place] for follow-up wellness coaching visit on 11/18/2012 around the area of weight loss and diabetes management. CHIEF COMPLAINT/REASON FOR VISIT Follow-up wellness coaching visit. PHYSICAL EXAMINATION Her weight is at 80.7 kg, which is at 177.54 pounds. This is a 1.76 pounds weight loss since our last session. SESSION OVERVIEW Today, Marcial is down another 1.76 pounds and has been feeling very happy about making a decision inregard to her shoulder. She has been contemplating getting shoulder surgery but has been afraid of doing so and was not quite sure what to do in the last few weeks. She did decide to go ahead with the surgery after talking to her primary care physician and other friends and family members as she feels that is the right thing at the right time for her at this time. She will be having surgery next Thursday to correct a rotator cuff issue with her shoulder and will enter into a therapy and PT programafter that. The doctor suggested it is a full year for 100% recovery, and she is looking forward to being able to have full use of her shoulder again. She has been preparing over the last week with buying fruits, vegetables, and yogurt, also stocking up on healthy choices and making things for her to eat so she can really take care of herself during her recovery time. She also has a long list of things that she is doing around the house to prepare like washing windows and getting things set up. She also is going to implement a strategy of watching her portion size as she recovers. She is going to make sure to use food on a plate rather than using out of the bag as a strategy. She reports today that she loves being off of her diabetic medication and is feeling so good about the progress that she has made. FOLLOW-UP PLAN We will continue to see Marcial in in the next few weeks after her surgery, and she may do phone consults as it may be easier for her during her recovery time. Annie Pérez/[facility] Electronically Signed By: ANNIE PÉREZ On: 11/23/2012 03:53 PM Source: [facility]SDOLBEYNONRADSYS Document Id: [id number] documented in this encounter Plan of Treatment Not on filedocumented as of this encounter Visit Diagnoses Not on filedocumented in this encounter
--- OUTSIDE RECORDS SUMMARY | 2021-09-05 08:01 | XMS_ITS | Encounter Summary ---
:1945 Author Organization [facility] Address [address] [place] [address] Care Team Providers Name Role Phone Unavailable Primary Care Provider Unavailable Encounter Details Date Type Department Care Team Description 05/31/2013 Hospital Encounter HX [facility] Nicki Holt, MAL, C.N.P., D. N.P. [address] [place] [address] (Wo rk) Social History Tobacco [...] Sign Reading Time Taken Comments Blood Pressure 116/64 05/31/2013 12:02 PM CDT Pulse 64 05/31/2013 12:02 PM CDT Temperature - - Respiratory Rate 16 05/31/2013 12:02 PM CDT Oxygen Saturation - - Inhaled Oxygen Concentration - - Weight 83.8 kg (184 lb 11.9 oz) 05/31/2013 12:02 PM CDT Height 162 cm (5' 3.78) 05/31/2013 12:02 PM CDT Body Mass Index 31.93 05/31/2013 12:02 PM CDT documented in this encounter Medications at Time of Discharge Medication Sig Dispensed Refills Start Date End Date ASPIRIN ORAL Take 81 mg by mouth daily. Take 0 with food for heart health. documented as of this encounter Progress Notes Nicki Holt D.N.P., C.N.P. - 05/31/2013 11:29 AM CDT [id number] CHIEF COMPLAINT/REASON FOR VISIT Follow up. HISTORY OF PRESENT ILLNESS Patient is a 67-year-old female that presents to the clinic today for her routine wellness examination. She was to have this completed through the Medicare nurse, however she indicates that had made the appointment with me. She otherwise indicates that she is also having a little bit of some neck dis comfort, more so just in the last couple days duration, but feels that she may have strained her neck. She otherwise denies having any further concerns or issues. PAST MEDICAL/SURGICAL HISTORY Reviewed. Please see chart. FAMILY HISTORY Reviewed. Please chart. MEDICATIONS Reviewed. Please see chart. ALLERGIES Reviewed. Please see chart. PHYSICAL EXAMINATION GENERAL: Patient is an alert, well-nourished, 67-year-old female, that appears to be in no acute distress. HEAD: Normocephalic, atraumatic. Remainder of further examination deferred at this time. IMPRESSION/REPORT/PLAN Neck strain. PLAN: Discussed the overall findings at length with the patient. Presently, at this time, I indicated that we will disregard her visit today as she is to be following up with the Medicare nurse tomorrow for routine wellness examination. I recommend stretching techniques and following up if her neckstrain does not improve. The patient felt very comfortable with this treatment plan. She otherwisedenied having any further questions or concerns. The patient ambulated out of the clinic in no acute distress. PATIENT EDUCATION Ready to learn. No apparent learning barriers were identified. Learning preferences include listening. Explained diagnosis and treatment plan. Patient/Child/Caregiver expressed understanding of the content. Nicki Holt D.N.P./Stanislav.N.P/gene Electronically Signed By: NICKI HOLT DNP, FNP On: 05/31/2013 03:52 PM Source: [facility] MHSDOLBEYNONRADSYS Document Id: [id number] documented in this encounter Miscellaneous Notes Miscellaneous - Nicki Holt D.N.P., C.N.P. - 05/31/2013 1:15 PM CDT Ambulatory Patient Summary [id number] [place], [place] [phone] Visit Information Name: ARCHIE BAZAN [facility] Number: [id number] Current Date: 05/31/2013 13:15:18 Physicians Attending Provider: NICKI OHLT DNP, FNP Primary Care Provider: NICKI HOLT [...] Take Indications/Special Instructions/Comments/Notes for Patient Medication Changes/Routing alprazolam (Xanax 0.5 mg oral tablet) 1 Tablet(s), Oral, every 8 hours as needed for Anxiety Take for anxiety. aspirin (aspirin 81 mg oral tablet) 1 Tablet(s), Oral, once a day Take with food for heart health. cholecalciferol (Vitamin D3) 1,000 IntU, Oral, levothyroxine (levothyroxine 75 mcg (0.075 mg) oral tablet) 1 Tablet(s), Oral, once a day omega-3 polyunsaturated fatty acids (Fish Oil oral capsule) 1 cap, Oral, once a day simvastatin (simvastatin 10 mg oral tablet) 1 Tablet(s), Oral, once a day (at bedtime) Take for highcholesterol. Stop Taking the Following Medications: clobetasol topical (clobetasol topical 0.05% solution) estradiol topical (estradiol 0.1 mg/g vaginal cream) Medication list as of 05-31-13 13:15 Attention: If you have any medications at [...] emergency. Electronically Signed By: NICKI HOLT DNP, REHAB AIDE Signed On:31-MAY-2013 13:15:08 Your Allergies & Intolerances Substance Reaction Symptoms [...] 3 and 4 had no useable data. Active 09/14/2002 05/14/13 Other osteoporosis Your Upcoming Appointments Date Time Location Reason Provider 06/01/2013 13:00 [facility] Med wellness visit [facility] Medicare Nurse Coordinato 06/09/2013 09:00 [facility] Follow up [facility] Health Trade Union Secretary 06/23/2013 09:00 [facility] Family Med Follow up [facility] Health Trade Union Secretary Attention: Contact your local Clinic if further appointment detail needed. Your Goals/Additional instructions: Source: [facility] POWERCHART Document Id: [id number] Miscellaneous - Nicki Holt, Maritza.N.P., C.N.P. - 05/31/2013 1:15 PM CDT Ambulatory Discharge Medication List [address] [phone] Visit Information Name: ARCHIE BAZAN [facility] Number: [id number] Visit Date: 05/31/2013 13:15:15 Attending Provider: NICKI HOLT DNP, FNP Primary [...] Take Indications/Special Instructions/Comments/Notes for Patient Medication Changes/Routing alprazolam (Xanax 0.5 mg oral tablet) 1 Tablet(s), Oral, every 8 hours as needed for Anxiety Take for anxiety. aspirin (aspirin 81 mg oral tablet) 1 Tablet(s), Oral, once a day Take with food for heart health. cholecalciferol (Vitamin D3) 1,000 IntU, Oral, levothyroxine (levothyroxine 75 mcg (0.075 mg) oral tablet) 1 Tablet(s), Oral, once a day omega-3 polyunsaturated fatty acids (Fish Oil oral capsule) 1 cap, Oral, once a day simvastatin (simvastatin 10 mg oral tablet) 1 Tablet(s), Oral, once a day (at bedtime) Take for highcholesterol. Stop Taking the Following Medications: clobetasol topical (clobetasol topical 0.05% solution) estradiol topical (estradiol 0.1 mg/g vaginal cream) Medication list as of 05-31-13 13:15 Attention: If you have any medications at [...] emergency. Electronically Signed By: NICKI HOLT DNP, FNP Signed On:31-MAY-2013 13:15:08 Additional Information: Source: [facility] POWERCHART Document Id: [id number] Miscellaneous - Diana Cardoza LJairoP.NJairo - 05/31/2013 12:16 PM CDT Health Assessment Health Assessment Entered On: 05/31/2013 12:17 CDT Performed On: 05/31/2013 12:16 CDT by DIANA CARDOZA LPN Health Assessment Complete Health Assessment Complete or Modified : Annual Health Assessment Annual Health Assessment Completed : Yes DIANA CARDOZA LPN - 05/31/2013 12:16 CDT Nutrition Nutrition Risk Factors by History Adult : None DIANA CARDOZA [facility] - 05/31/2013 12:16 CDT Functional Current Daily Living Assistance : None DIANA CARDOZA LPN - 05/31/2013 12:16 CDT Dependent Habits Tobacco Use/Currently Using : No Tobacco Use/Last 12 months : No Tobacco Use/Advised to Quit : No Exposure to Tobacco Smoke : Care provider denies smoking in home Smoking Status : Never smoker DIANA CARDOZA [facility] - 05/31/2013 12:16 CDT Tobacco Use Grid Last Use : Never DIANA CARDOZA LPN - 05/31/2013 12:16 CDT Caffeine Use Grid Caffeine Use : None Frequency : Occasionally DIANA CARDOZA ASSISTANT PROPERTY MANAGER - 05/31/2013 12:16 CDT Recreational Drug Use Grid Drug Use : None DIANA CARDOZA [facility] - 05/31/2013 12:16 CDT Psychosocial Domestic Abuse Concerns : None DIANA CARDOZA LPN - 05/31/2013 12:16 CDT Advance Directive Advanced Directives : No DIANA CARDOZA LPN - 05/31/2013 12:16 CDT Educ Needs Learning Style Preference Adult Grid Patient : None Family : None DIANA CARDOZA LPN - 05/31/2013 12:16 CDT Source: [facility] RE2CHART Document Id: [id number] CDT!32 Miscellaneous - Diana Cardoza LJairoP.NJairo - 05/31/2013 12:02 PM CDT Adult Engine Inspector Intake/History Adult Engine Inspector Intake/History Entered On: 05/31/2013 12:09 CDT Performed On: 05/31/2013 12:02 CDT by DIANA CARDOZA LPN Intake Chief Complaint : physical Peripheral Pulse Rate : 64 /min Respiratory Rate : 16 /min Systolic Blood Pressure : 116 mmHg Diastolic Blood Pressure : 64 mmHg NIBP Mean : 81 mmHg Height : 162 cm(Converted to: 5 ft 4 inch(es), 64 inch(es)) Actual Weight : 83.8 kg(Converted to: 184 lb 12 oz) Weight Source : Standing scale Dosing Weight Clinic : 83.8 kg Clinic BSA : 1.94 Body Mass Index : 31.93 kg/m2 DIANA CARDOZA LPN - 05/31/2013 12:02 CDT General Info Information Given By : Patient Languages : Zimbabwean DIANA CARDOZA LPN - 05/31/2013 12:02 CDT Subjective Pain Symptoms : No DIANA CARDOZA LPN - 05/31/2013 12:02 CDT Dependent Habits Tobacco Use/Currently Using : No Tobacco Use/Last 12 months : No Tobacco Use/Advised to Quit : No Exposure to Tobacco Smoke : Care provider denies smoking in home Smoking Status : Never smoker DIANA CARDOZA LPN - 05/31/2013 12:02 CDT Tobacco Use Grid Last Use : Never DAINA CARDOZA LPN - 05/31/2013 12:02 CDT Alcohol Use : No DIANA CARDOZA LPN - 05/31/2013 12:02 CDT Caffeine Use Grid Caffeine Use : None Frequency : Occasionally DIANA CARDOZA LPN - 05/31/2013 12:02 CDT Recreational Drug Use Grid Drug Use : None DIANA CARDOZA LPN - 05/31/2013 12:02 CDT [facility] POWERCHART Document Id: [id number] CDT!36 documented in this encounter Plan of Treatment Not on filedocumented as of this encounter Visit Diagnoses Not on filedocumented in this encounter
--- OUTSIDE RECORDS SUMMARY | 2021-09-05 08:01 | XMS_ITS | Encounter Summary ---
:1945 Author Organization [facility] Address [address] [place] [address] Care Team Providers Name Role Phone Unavailable Primary Care Provider Unavailable Encounter Details Date Type Department Care Team Description 07/25/2014 Hospital Encounter HX [facility] Asha Ramon, MAL, C.N.P., D. N.P. [address] [place], [place] [phone] (Wo rk) Social History [...] - - Height 158 cm (5' 2.21) 07/25/2014 8:44 AM CDT Body Mass Index - - documented in this encounter Medications at Time of Discharge Medication Sig Dispensed Refills Start Date End Date ASPIRIN ORAL Take 81 mg by mouth daily. Take 0 with food for heart health. documented as of this encounter Miscellaneous Notes Miscellaneous - Conversion, Historical Provider Ser - 07/25/2014 11:59 PM CDT Coding Summary-Paper Based CODING DATE: 08/11/2014 FINAL [facility] STATUS: * Discharged to Home or Self Care PAYOR: Medicare ADMIT DX: V76.11 Screening Mammogram for High-Risk Patient REASON FOR VISIT DX: V76.11 Screening Mammogram for High-Risk Patient FINAL DX: PRINCIPAL: V76.11 Screening Mammogram for High-Risk Patient SECONDARY: V16.3 Family History of Malignant Neoplasm of Breast PROCEDURES DOCTOR NAME DATE NOTE: The code number assigned matches the documented diagnosis and / or procedure in the patient's chart. However, the narrative phrase printed from the coding software may appear abbreviated, or result in slightly different terminology. Coded By: GUERITA CHAN Date Saved: 08/11/2014 10:06 am Source: [facility] Document Id: [id number] Miscellaneous - Nicki Holt D.N.P., C.N.P. - 07/25/2014 11:21 AM CDT Normal Results Letter 25 July 2014 ARCHIE BAZAN [address] [place] [id number] Dear ARCHIE BAZAN, Your bone density scan looks about the same as 2013! I would not recommend any changes at this time but would advise this be rechecked again in 2-3 years. If you have any other questions, please followup with Dr. Gabriel and she will be able to address any of your concerns/questions! I wish you the best!! (A copy of your report is provided to you below for your records.) Reason For Exam screening Report 24-Jul-2014 11:15:00 Exam: NM BMD Spine and/or Hip(s) Indications: screening 24-Jul-2014 11:57 CA NM BMD Spine and/or Hip(s): EXAM: NM BMD Spine and/or Hip(s) - IMPRESSION: Osteopenia - FINDINGS: Degenerative changes are present which may spuriously elevate the spine BMD measurement. - Left Hip [single scan]: Femur Neck: BMD = 0.767 g/cm (sq) T-score = -1.9 Z-score = -0.7 Total Hip: BMD = 0.960 g/cm (sq) T-score = -0.4 Z-score = 0.6 Right Hip [single scan]: Femur Neck: BMD = 0.823 g/cm (sq) T-score = -1.5 Z-score = -0.3 Total Hip: BMD = 0.993 g/cm (sq) T-score = -0.1 Z-score = 0.8 Lumbar Spine [single scan]: L1: BMD = 1.053 g/cm (sq), T-score =-0.7, Z-score = 0.3 L3: BMD = 1.149 g/cm (sq), T-score =-0.5, Z-score = 0.5 L4: BMD = 1.152 g/cm (sq), T-score =-0.5, Z-score = 0.5 Total Lumbar Spine: BMD = 1.122 g/cm (sq) T-score = -0.5 Z-score = 0.5 Please note: A more comprehensive DXA report, including images and graphs, is available in Synthesis and QREADS. In the absence of other causes of low BMD or demonstrated skeletal fragility, osteoporosis may be diagnosed in post-menopausal women when the T-score is at or below -2.5 as defined by the WHO. Osteopenia is present at T-scores between -1 and -2.5 and normal BMD when T-score is at or above -1.0. The diagnosis in pre-menopausal women and men can be based on low bone mass or evidence of skeletal fragility in the appropriate clinical setting. - Serial Comparisons: - Left Total Hip results: 04/29/2012 BMD: 0.987 g/cm(sq), T Score: -0.2 07/24/2014 BMD: 0.960 g/cm(sq), T Score: -0.4 Change - Baseline: -2.7% / Previous: -2.7% The least significant change in BMD for the Total Hip is 0.036 g/cm(sq) The absolute BMD change from baseline, 0.027g/cm(sq), is less than the least significant change. Right Total Hip results: 04/29/2012 BMD: 1.012 g/cm(sq), T Score: 0.1 07/24/2014 BMD: 0.993 g/cm(sq), T Score: -0.1 Change - Baseline: -1.9% / Previous: -1.9% The least significant change in BMD for the Total Hip is 0.036 g/cm(sq) The absolute BMD change from baseline, 0.019g/cm(sq), is less than the least significant change. Combined Total Hip results: 04/29/2012 BMD: 1.000 g/cm(sq), T Score: -0.1 07/24/2014 BMD: 0.977 g/cm(sq), T Score: -0.3 Change - Baseline: -2.3% / Previous: -2.3% The least significant change in BMD for the Total Hip is 0.036 g/cm(sq) The absolute BMD change from baseline, 0.023g/cm(sq), is less than the least significant change. Spine results: 04/29/2012 BMD: 1.118 g/cm(sq), T Score: -0.6 07/24/2014 BMD: 1.122 g/cm(sq), T Score: -0.5 Change - Baseline: 0.4% / Previous: 0.4% The least significant change in BMD for the Spine is 0.041 g/cm(sq) The absolute BMD change from baseline, 0.004g/cm(sq), is less than the least significant change. Isabel Linares MD. [id number] 24-Jul-2014 11:57 Sincerely, NICKI HOLT [address] [place], [place] [id number] Electronic Signature Electronically Signed By: NICKI HOLT DNP, FNP On: 25 July 2014 This document has images extracted. Source: [facility] POWERCHART Document Id: [id number] Electronically signed by Sae [facility] [employer] Drawer [id number] at 07/14/2016 2:50 PM CDT documented in this encounter Plan of Treatment Not on filedocumented as of this encounter Visit Diagnoses Not on filedocumented in this encounter Additional Health Concerns Assessment Noted Time PHQ-9 Depression Total Score: 7 06/21/2014 9:20 AM CD T documented as of this encounter
--- OUTSIDE RECORDS SUMMARY | 2021-09-05 08:01 | XMS_ITS | Encounter Summary ---
:1945 Author Organization [facility] Address [address] [place] [address] Care Team Providers Name Role Phone Unavailable Primary Care Provider Unavailable Encounter Details Date Type Department Care Team Description 12/30/2012 Hospital Encounter [facility] Nicki Anthony, MAL, C.N.P., D. N.P. [address] [place] [phone] (Wo rk) Social History Tobacco [...] Progress Notes Conversion, Historical Provider Ser - 12/30/2012 9:11 AM CST [id number] HEALTH & WELLNESS COACHING Patient was seen at [facility] in [place] on 12/30/2012 for follow-up wellness coaching visit around the area of diabetes and weight loss. CHIEF COMPLAINT/REASON FOR VISIT Follow-up wellness coaching visit. OBJECTIVE INFORMATION Her weight is at 82.5 kg which is at 181.5 pounds. This is up 3.96 pounds since our last session. SESSION OVERVIEW Today in our visit Marcial reports feeling extra weight in her body and overall feeling lower energy level. She feels that she has been struggling with snacking in the afternoons due to boredom and notknowing what to do as she does not have a lot of mobility with her shoulder since her shoulder is esteban sling due to her shoulder surgery. She also identified that she has been having different types of items for snacks that she wouldn't normally have such as chips, popcorn and other sweets. We discussed other options that she used to take in that were healthy and that made her feel good after having and listed them out like apple and cheese, apple and almond butter, nuts or yogurt, Icelandic yogurt especially. She would like to a get back on track as she in her words which would include successful menu planning as she noted that her , Alex, has stated that he really enjoyed doing that together and itwas fun having their meals planned out so they would not have to think about what to eat during the day. She also is going to look at creating a healthy plan for sleep making sure that she is getting enough sleep as her sleep is somewhat interrupted due to her surgery and only been able to lay on herleft side. She is also going to look at having balanced meals and snacks throughout the day and have them planned out. She was approved yesterday by her primary care physician for PE to begin and will start with her PT work on Thursday. She also notes that overall her energy level has been low and that she has allowed herself to have more sleeping and napping time. We discussed that this is a healthy thing as her bodyis still healing and for her to take it slow and not push herself is just fine. We also identified that in healing we want to eat the best things possible so she is going to focus on more vegetables and fruits along with making sure she gets enough water in in her days. FOLLOWUP PLAN We will continue to see every 2 to 3 weeks as she sees fit moving forward towards continuing wellness and maintaining her goals. Annie Miramontes/arnol cc: Nicki Anthony D.N.P./F.N.P Electronically Signed By: ANNIE MIRAMONTES On: 01/04/2013 10:03 AM Source: [facility] Document Id: [id number] documented in this encounter Plan of Treatment Not on filedocumented as of this encounter Visit Diagnoses Not on filedocumented in this encounter
--- OUTSIDE RECORDS SUMMARY | 2021-09-05 08:01 | XMS_ITS | Encounter Summary ---
:1945 Author Organization [facility] Address [address] [place] [address] Care Team Providers Name Role Phone Unavailable Primary Care Provider Unavailable Encounter Details Date Type Department Care Team Description 05/26/2013 Hospital Encounter [facility] Nicki Holt, MAL, C.N.P., D.N.P. [address] [place], [place] [phone] (Wo rk) Social History [...] - - Height 162 cm (5' 3.78) 05/26/2013 8:37 AM CDT Body Mass Index - - documented in this encounter Medications at Time of Discharge Medication Sig Dispensed Refills Start Date End Date ASPIRIN ORAL Take 81 mg by mouth daily. Take 0 with food for heart health. documented as of this encounter Progress Notes Conversion, Historical Provider Ser - 05/26/2013 8:35 AM CDT [id number] HEALTH AND WELLNESS COACHING REFERRAL SOURCE Nicki Holt, ELIDA Patient was seen in [facility] on 05/26/2013 for a followup wellness coaching visit around the area of diabetes/weight loss. CHIEF COMPLAINT/REASON FOR VISIT Followup wellness coaching visit. OBJECTIVE INFORMATION/SESSION OVERVIEW Today she is at 84.5 kg which is at 185.9 pounds, this is down 1.76 pounds since last session. Her A1c is 7.49 today. Today we talked about how things have been dealing with Vanessa and she shared that she is doing better, but is really interested and really stepping more into the area of lifestylefor herself. She has also shared that since she has been eating better, she has had no palpitationsany longer along with leg cramps and also feels that she has less anxiety. She is continuing to do her relaxation 3 times a week in addition to listening to the relaxation CD and also holding her granddaughter also for relaxation purposes. She is really wanting to step into a no sugar diet for a while in addition to increasing her water intake. She feels better when she cuts out sugar and knows that it is not good for her. She also has been exercising every day at 8 a.m. 5 days a week, and has started to feel less winded and feeling more strength again since doing so. She would like to continue on with doing her exercise in addition to her diet and relaxation. NEW GOALS SET She wants to start implementing the fish oil EPA DHA 1000 international units 2 times daily along with doing the vitamin D3 at 5000 international units daily for mood and also continue with her scheduled exercise 8 a.m. 5 days a week in addition to do her diet of cutting out processed foods and sugarsin addition to relaxing at least 3 times a week. She will continue on this plan moving forward and we will check in every 2 weeks. Annie Pérez/gene Electronically Signed By: ANNIE PÉREZ On: 06/02/2013 11:53 AM Source: [facility] MHSDOLBEYNSRINIVASASYS Document Id: [id number] documented in this encounter Miscellaneous Notes Miscellaneous - Nicki Holt D.N.P., C.N.P. - 05/26/2013 2:37 PM CDT Normal Results Letter 26 May 2013 ARCHIE BAZAN [address] [place] [id number] Dear ARCHIE BAZAN, Result Name Current Result Previous Result Normal Range Hgb A1c (%) (H) 7.49 05/26/2013 (H) 7.46 02/07/2013 4.00 - 6.00 Sincerely, NICKI HOLT [address] [facility] [place] [address] Electronic Signature Electronically Signed By: NICKI HOLT DNP, ADMISSIONS DEAN On: 26 May 2013 This document has images extracted. Source: [facility] POWERCHART Document Id: [id number] Electronically signed by Conversion, [facility] Veterinary Receptionist [id number] at 07/15/2016 9:21 AM CDT documented in this encounter Plan of Treatment Not on filedocumented as of this encounter Procedures Procedure Name Priority Date/Time Associated Diagnosis Comme nts HEMOGLOBIN A1C, B Routine 05/26/2013 8:47 AM Res ults for this CDT procedure are i n the results section. documented in this encounter Results (ABNORMAL) Hemoglobin A1c (05/26/2013 8:47 AM CDT) Analysis Performed At Patho logist Time Signature Hemoglobin A1c, 7.49 (H) 4.00 - POWERCHART B 6.00 Specimen (Source) Anatomical Collection Method Collection Time Re ceived Time Location / / Volume Laterality Blood 05/26/2013 8:47 AM CDT Nicki Holt APRN, C.N.P., D.N.P. LAB BLOOD ADD- ON Performing Organization Address City/State/ZIP Code Phon e Number POWERCHART documented in this encounter Visit Diagnoses Not on filedocumented in this encounter
--- OUTSIDE RECORDS SUMMARY | 2021-09-05 08:01 | XMS_ITS | Encounter Summary ---
:1945 Author Organization [facility] Address [address] [place] [id number] Care Team Providers Name Role Phone Unavailable Primary Care Provider Unavailable Encounter Details Date Type Department Care Team Description 11/29/2014 Hospital Encounter HX [facility] Gail Garrison M.D. [address] [place] [phone] (Wo rk) Social History Tobacco Use [...] Sign Reading Time Taken Comments Blood Pressure 131/49 11/29/2014 8:18 AM CDT Pulse 82 11/29/2014 8:18 AM CDT Temperature - - Respiratory Rate 16 11/29/2014 8:18 AM CDT Oxygen Saturation - - Inhaled Oxygen Concentration - - Weight 86.1 kg (189 lb 13.1 oz) 11/29/2014 8:18 AM CDT Height 158 cm (5' 2.21) 11/29/2014 8:18 AM CDT Body Mass Index 34.49 11/29/2014 8:18 AM CDT documented in this encounter Medications at Time of Discharge Medication Sig Dispensed Refills Start Date End Date ASPIRIN ORAL Take 81 mg by mouth daily. Take 0 with food for heart health. documented as of this encounter Progress Notes Gail Cortez M.D. - 11/29/2014 12:45 PM CDT Clinic Full Note CHIEF COMPLAINT/REASON FOR VISIT diabetic visit HISTORY OF PRESENT ILLNESS Archie presents today to follow up on her diabetes. She states that her blood sugars have been high first thing in the morning. She checks them three times per day. She takes two metformin at supper and 2.5 mg of glipizide in the morning. She has checked her blood sugars a few times at night and it has been okay. She has not had any lows lately. Patient also notes increased fatigue to the point that she can hardly keep her eyes open. She has had brief episodes of lightheadedness that occur when she is standing. If she holds onto something they pass after a couple seconds. They do make hernervous however. This has happened about three times. She also reports some chest pain when she isputzing around. She has a hard time describing the pain but it will go into her shoulders sometimeswhen she goes up the steps. She rests and it improves. She also feels tired and weak when the painis happening but denies any shortness of breath, numbness, or tingling. She did have a funny feeling about 1 month ago in her neck. It felt puffy. She was evaluated at another provider and her TSH was normal. This funny sensation lasted for 2 to 3 weeks and now she is feeling better. She continues to follow her blood pressure. It has been up a little at 130/70. It had previously been around 110/60. MEDICATIONS aspirin 81 mg oral tablet, 81 mg, 1 tab(s), Take with food for heart health., PO, Daily, 0 refills Cinnamon 500 mg oral capsule, 1,000 mg, 2 cap(s), PO, 2xDay, * clindamycin 1% topical gel, 1 shauna, rosacea, [...] 3 refills potassium acetate, 1tab, OTC, PO, Daily, * simvastatin 10 mg oral tablet, 10 mg, 1 tab(s), Take for high cholesterol., PO, Bedtime, 3 refills Vitamin D3 5000 intl units oral tablet, 5,000 IntU, 1 tab(s), PO, Daily, * Xanax 0.5 mg oral tablet, 0.5 mg, 1 tab(s), Take for anxiety., PO, q8hr, PRN, 1 refills * indicates non-compliance ALLERGIES azithromycin Benicar PAST MEDICAL HISTORY Chronic [...] Appendectomy (1959), section. SOCIAL HISTORY Date Time: 11/29/2014 08:18 Tobacco: Smoking Status: Never smoker Exposure: Care [...] mellitus; Migraine SYSTEMS REVIEW As per HPI. Patient has not had any heart palpitations for the past year. She does note some difficulty with her vision and she saw an sales relationship manager this summer. She does not sleep well. She hasnot had a lot of problems with anxiety. VITAL SIGNS T: 36.5 ??C (Core) HR: 82 RR: 16 BP: 131 / 49 SpO2: 98% HT: 158 cm WT: 86.1 kg BMI: 34.49 PHYSICAL EXAMINATION General: Alert and oriented. No acute distress. Neck: Supple. No lymphadenopathy. No carotid bruits. Cardiovascular exam: Regular rate and rhythm. Normal S1 and S2. No murmurs, rubs, or gallops. Lungs: Clear to auscultation bilaterally. Extremities: No pedal edema. LAB RESULTS Hgb A1c: 7.5 High 11/22/14 Sodium Lvl: 144.4 11/22/14 Potassium Lvl: 4.3 11/22/14 Chloride: 107 11/22/14 CO2: 24.6 11/22/14 Glucose Fastin High 11/22/14 Creatinine: 0.89 11/22/14 Calcium Lvl: 9.3 11/22/14 BUN: 18 11/22/14 EGFR (MDRD): >60 11/22/14 EGFR (MDRD): >60 11/22/14 AGAP: 17 11/22/14 Cholesterol: 160 11/22/14 Tri High 11/22/14 HDL: 51 11/22/14 LDL Calculated: 77 11/22/14 Chol/HDL Ratio: 3 11/22/14 IMPRESSION/REPORT/PLAN 1. DM2 Patient's A1c is overall stable at 7.5%. On review of her numbers, I think we can go up on her glipizide to 5 mg daily. She will continue to closely monitor her blood sugars. 2. Pain Chest (CP) NOS Patient's chest pain is worrisome with her risk factors. For this reason we are going to obtain a stress echocardiogram. The last stress test was years ago. 3. Hyperlipidemia NOS Patient's cholesterol is acceptable. Continue her simvastatin. 4. Hypothyroidism NOS TSH was recently checked at another location and reportedly it is normal. We will continue her same dose of levothyroxine. 5. Anxiety NOS Patient's Xanax was refilled. She uses it sparingly. Immunization Only Electronically Signed By: GAIL VILLAR MD On: 12/02/2014 12:48 PM Source: [facility] POWERCHART Document Id: [id number] documented in this encounter Miscellaneous Notes Miscellaneous - Gail Cortez M.D. - 11/29/2014 9:09 AM CDT Ambulatory Patient Summary [address] [facility] [place], [place] [phone] Visit Information Name: ARCHIE BAZAN [facility] Number: [id number] Current Date: 11/29/2014 09:09:24 Physicians Attending Provider: GAIL VILLAR MD Primary [...] once a day 30 minutes before breakfast This is a CHANGE Routed to [facility] [address] [address] levothyroxine (levothyroxine 75 mcg (0.075 mg) oral tablet) 1 Tablet(s), Oral, once a day for thyroid replacement metFORMIN (metFORMIN 500 mg oral tablet, extended release) 1 Tablet(s), Oral, two times a day *potassium acetate (potassium acetate) 1tab, Oral, once [...] the Following Medications: Medication list as of 11-29-14 09:09 Attention: If you have any medications at [...] Electronically Signed By: GAIL VILLAR MD Signed On:29-NOV-2014 09:09:10 Your Allergies & Intolerances Substance Reaction Symptoms [...] if you dont have one. Go to [email or web address] and click on Create Your Account. Then, follow the directions to complete the online form. Youll be asked for your [facility] number which you can find at the top of this document. Your Goals/Additional instructions: Source: [facility] POWERCHART Document Id: [id number] Miscellaneous - Gail Cortez M.D. - 11/29/2014 9:09 AM CDT Ambulatory Discharge Medication List [address] [id number] Visit Information Name: ARCHIE BAZAN [facility] Number: [id number] Visit Date: 11/29/2014 09:09:22 Attending Provider: GAIL VILLAR MD Primary Care [...] once a day 30 minutes before breakfast This is a CHANGE [facility] [address] levothyroxine (levothyroxine 75 mcg (0.075 mg) oral tablet) 1 Tablet(s), Oral, once a day for thyroid replacement metFORMIN (metFORMIN 500 mg oral tablet, extended release) 1 Tablet(s), Oral, two times a day *potassium acetate (potassium acetate) 1tab, Oral, once [...] the Following Medications: Medication list as of 11-29-14 09:09 Attention: If you have any medications at [...] Electronically Signed By: GAIL VILLAR MD Signed On:29-NOV-2014 09:09:10 Additional Information: Source: [facility] POWERCHART Document Id: [id number] Miscellaneous - Vitaliy Darnell, L.P.N. - 11/29/2014 8:18 AM CDT Adult Acoustical Engineer Intake/History Adult Acoustical Engineer Intake/History Entered On: 11/29/2014 8:24 CDT Performed On: 11/29/2014 8:18 CDT by VITALIY DARNELL LPN Intake Chief Complaint : diabetic visit Onset of Symptoms : has episodes where blood sugars go high/blood pressure goes high and gets verytired Temperature Core : 36.5 DegC(Converted to: 97.7 DegF) Peripheral Pulse Rate : 82 /min Respiratory Rate : 16 /min Heart Rhythm : Regular Systolic Blood Pressure : 131 mmHg Diastolic Blood Pressure : 49 mmHg (<LLOW) NIBP Mean : 76 mmHg BP Location : Left upper extremity Blood Pressure Cuff Size : Large SpO2 : 98 % Oxygen Therapy : Room air Height : 158 cm(Converted to: 5 ft 2 inch(es), 62 inch(es)) Actual Weight : 86.1 kg(Converted to: 189 lb 13 oz) Weight Source : Standing scale Dosing Weight Clinic : 86.1 kg Clinic BSA : 1.94 Body Mass Index : 34.49 kg/m2 VITALIY DARNELL LPN - 11/29/2014 8:18 CDT General Info Information Given By : Patient Preferred Communication Mode : Verbal Languages : Polish Is Patient Female and 13-50 no hysterectomy : No VITALIY DARNELL LPN - 11/29/2014 8:18 CDT Subjective Pain Symptoms : No VITALIY DARNELL LPN - 11/29/2014 8:18 CDT Dependent Habits Tobacco Use/Currently Using : No Tobacco Use/Last 12 months : No Tobacco Use/Advised to Quit : No Exposure to Tobacco Smoke : Care provider denies smoking in home Smoking Status : Never smoker Alcohol Use : No VITALIY DARNELL LPN - 11/29/2014 8:18 CDT Caffeine Use Grid Caffeine Use : Past Type : Coffee, Soft drinks Frequency : Occasionally Amount : 1 cup per week VITALIY DARNELL LPN - 11/29/2014 8:18 CDT Recreational Drug Use Grid Drug Use : None VITALIY DARNELL FIREWORKS ASSEMBLY SUPERVISOR - 11/29/2014 8:18 CDT Source: [facility] POWERCHART Document Id: [id number]![id number] Miscellaneous - Reanna Amanda RSusan - 11/22/2014 3:24 PM CDT alprazolam Document Contains Addenda Addendum by REANNA AMANDA RN on 23 November 2014 10:21:21 CDT [facility] to [facility] Addendum by GAIL VILLAR MD on 23 November 2014 09:43:38 CDT From: GAIL VILLAR MD Sent: 11/23/2014 09:43:38 CDT Subject: RE:alprazolam Approved Order:ALPRAZolam (Xanax 0.5 mg oral tablet) 1 tab(s) PO q8hr Take for anxiety. Qty: 25 tab(s) Refills: 1 PRN Anxiety Don't Print - called to pharmacy (Rx) [facility] Signed by GAIL VILLAR MD 11/23/2014 09:43:36 From: REANNA AMANDA RN To: GAIL VILLAR MD; REANNA AMANDA RN; Sent: 11/22/2014 15:24:57 CDT Subject: alprazolam On hold pending signature Order:ALPRAZolam (Xanax 0.5 mg oral tablet) 1 tab(s) PO q8hr Take for anxiety. Qty: 25 tab(s) Refills: 1 PRN Anxiety Don't Print - called to pharmacy (Rx) [facility] 07/24/14 LF 10/11/13 [facility] Document Id: [id number] documented in this encounter Plan of Treatment Not on filedocumented as of this encounter Visit Diagnoses Not on filedocumented in this encounter Additional Health Concerns Assessment Noted Time PHQ-9 Depression Total Score: 7 06/21/2014 9:20 AM CD T documented as of this encounter
--- OUTSIDE RECORDS SUMMARY | 2021-09-05 08:01 | XMS_ITS | Encounter Summary ---
:1945 Author Organization [facility] Address [address] [place] [address] Care Team Providers Name Role Phone Unavailable Primary Care Provider Unavailable Encounter Details Date Type Department Care Team Description 04/07/2013 Hospital Encounter HX [facility] Nicki Holt, MAL, C.N.P., D.N.P. [address] [place], [place] [phone] (Wo rk) Social History [...] by mouth daily. Take 0 with food Tempo [facility] health. documented as of this encounter Miscellaneous Notes Miscellaneous - Nicki Holt, D.N.P., C.N.P. - 04/07/2013 11:17 AM ASSET MANAGEMENT ANALYST Results Notification Document Contains Addenda Addendum by VITALIY VILLEDA LPN on 07 April 2013 12:31:54 ASSET MANAGEMENT ANALYST Spoke with Malik regarding below results. Addendum by VITALIY VILLEDA LPN on 07 April 2013 11:26:14 ASSET MANAGEMENT ANALYST Left message to return call. From: NICKI HOLT DNP, TEST MANAGER Sent: 04/07/2013 11:17:42 ASSET MANAGEMENT ANALYST ! Show up: 04/07/2013 11:17:42 ASSET MANAGEMENT ANALYST Subject: Results Notification Actions: Notify patient of results Reminder Comments: can you please call malik with normal TSH results, will plan on rechecking in one year, as this looks great. Also, urine a contamination, but no red blood cells seen, please advise and send copy to pt. in mail, thank you. Results: Date Result Name Value Ref Range 04/07/2013 10:11 UA Color Yellow (Yellow - ) 04/07/2013 10:11 UA Spec Grav 1.015 (1.000 - 1.030) 04/07/2013 10:11 UA pH 5.5 (5.0 - 8.0) 04/07/2013 10:11 UA Protein Negative (Negative - ) 04/07/2013 10:11 UA Glucose Trace (Negative - ) 04/07/2013 10:11 UA Ketones Negative (Negative - ) 04/07/2013 10:11 UA Bili Negative (Negative - ) 04/07/2013 10:11 UA Urobilinogen 0.2 04/07/2013 10:11 UA Blood Trace-lysed 04/07/2013 10:11 UA Nitrite Negative (Negative - ) 04/07/2013 10:11 UA Leuk Est 1+ (Negative - ) 04/07/2013 10:11 UA WBC 1-3 04/07/2013 10:11 UA RBC Negative (0-2 - ) 04/07/2013 10:11 UA Appear Clear (Clear - ) 04/07/2013 10:11 UA Epi Occasional 04/07/2013 09:40 TSH 2.54 mcIU/mL (0.30 - 5.00) Source: [facility] POWERCHART Document Id: [id number] Electronically signed by Conversion, [facility] Coding Clerks Supervisor [id number] at 07/14/2016 11:11 PM CDT documented in this encounter Plan of Treatment Not on filedocumented as of this encounter Procedures Procedure Name Priority Date/Time Associated Comments Diagnosis URINALYSIS, ROUTINE Routine 04/07/2013 10:11 Resu lts for this AM ASSET MANAGEMENT ANALYST procedure are i n the results section. URINE MICROSCOPIC Routine 04/07/2013 10:11 Result s for this AM ASSET MANAGEMENT ANALYST procedure are i n the results section. THYROID-STIMULATING Routine 04/07/2013 9:40 Resu lts for this HORMONE-SENSITIVE AM ASSET MANAGEMENT ANALYST procedure are in (S-TSH) the results section. documented in this encounter Results Urine Microscopic (04/07/2013 10:11 AM ASSET MANAGEMENT ANALYST) [facility] Method Time Signature HXUr WBC 1-3 POWERCHART Red Blood Cell Negative 0 - 2 POWERCHART Clump, Urine HXUr Epithelial Occasional POWERCHART Comment: occasional squamous epis seen Specimen Anatomical Collection Method Collection Time Receive d Time (Source) Location / / Volume Laterality Urine 04/07/2013 10:11 04/07/2013 AM ASSET MANAGEMENT ANALYST 10:11 AM ASSET MANAGEMENT ANALYST Nicki Holt APRN, C.N.P., D.N.P. LAB URINE ORDE RABLES Performing Organization Address City/State/ZIP Code Phon e Number POWERCHART Urinalysis, Routine (04/07/2013 10:11 AM ASSET MANAGEMENT ANALYST) [facility] Method Time Signature HXUr Color Yellow Yellow POWERCHART Appearance Clear Clear POWERCHART Glucose Trace Negative POWERCHART HXBILIRUBIN Negative Negative POWERCHART Ketones, QL(U) Negative Negative POWERCHART Specific 1.015 1.000 - POWERCHART Carlotta, POCT, U 1.030 pH, POCT, Urine 5.5 5.0 - 8.0 POWERCHART Protein, Ur, Dip Negative Negative POWERCHART Urobilinogen 0.2 POWERCHART HXNITRITE Negative Negative POWERCHART HXBLOOD Trace-lysed POWERCHART Leukocyte 1+ Negative POWERCHART Esterase Source Clean Void POWERCHART Urine Specimen (Source) Anatomical Collection Method Collection Time Re ceived Time Location / / Volume Laterality Urine 04/07/2013 10:11 AM ASSET MANAGEMENT ANALYST Nicki Holt APRN, C.N.P., D.N.P. LAB URINE ORDE RABLES Performing Organization Address City/State/ZIP Code Phon e Number POWERCHART Thyroid-Stimulating Hormone-Sensitive (s-TSH) (04/07/2013 9:40 AM ASSET MANAGEMENT ANALYST) athologist Signature TSH 2.54 0.30 - 5.00 POWERCHART (Thyrotropin) MCIUML Specimen (Source) Anatomical Collection Method Collection Time Re ceived Time Location / / Volume Laterality Blood 04/07/2013 9:40 AM ASSET MANAGEMENT ANALYST Nicki Holt APRN, C.N.P., D.N.P. LAB BLOOD ADD- ON Performing Organization Address City/State/ZIP Code Phon e Number POWERCHART documented in this encounter Visit Diagnoses Not on filedocumented in this encounter
--- OUTSIDE RECORDS SUMMARY | 2021-09-05 08:01 | XMS_ITS | Encounter Summary ---
:1945 Author Organization [facility] Address [address] [place] [address] Care Team Providers Name Role Phone Unavailable Primary Care Provider Unavailable Encounter Details Date Type Department Care Team Description 06/21/2014 Hospital Encounter HX [facility] Nicki Anthony, MAL, C.N.P., D. N.P. [address] [place] [address] (Wo rk) Social History Tobacco [...] Sign Reading Time Taken Comments Blood Pressure 124/80 06/21/2014 10:28 AM CDT Pulse - - Temperature - - Respiratory Rate - - Oxygen Saturation - - Inhaled Oxygen Concentration - - Weight 86.1 kg (189 lb 13.1 oz) 06/21/2014 8:52 AM CDT Height 158 cm (5' 2.21) 06/21/2014 10:28 AM CDT Body Mass Index 34.49 06/21/2014 8:52 AM CDT documented in this encounter Medications at Time of Discharge Medication Sig Dispensed Refills Start Date End Date ASPIRIN ORAL Take 81 mg by mouth daily. Take 0 with food for heart health. documented as of this encounter H&P Dianne Milner R.N. - 06/21/2014 8:50 AM CDT [id number] Marcial is a very pleasant 69-year-old female who comes in today for her subsequent Medicare Annual Wellness visit. PHYSICAL EXAMINATION VITAL SIGNS: Weight is 86.1 kg, height 158 cm. Blood pressure 152/70 on the right arm with the large cuff, second reading after 1 hour, 124/80, right arm, large cuff. Body mass index of 34, slightlyup from last year. OBSTRUCTIVE SLEEP APNEA ASSESSMENT: Neck circumference is 41 cm. Total sleep apnea clinical score of 3. ALLERGIES 1. Erythromycin. 2. Benicar. MEDICATIONS 1. Aspirin 81 mg oral tablet 1 tablet by mouth daily. 2. Alprazolam 0.5 mg oral tablet 1/2 tablet by mouth every 8 hours as needed for anxiety, she seldom is using this. 3. Vitamin D3, 5000 international units 1 tablet by mouth daily. 4. Simvastatin 10 mg oral tablet 1 tablet by mouth daily. 5. Levothyroxine 75 mcg tablet 1 tablet by mouth daily. 6. Glipizide 5 mg oral tablet 1/2 tablet by mouth daily 30 minutes before breakfast. 7. Cinnamon oral 500 mg capsule 2 capsules by mouth 2 times daily. 8. Potassium acetate 1 tablet by mouth daily. 9. Metformin 500 mg oral tablet 1 tablet by mouth 2 times daily. PAST MEDICAL/SURGICAL HISTORY PAST MEDICAL HISTORY: 1. Hypothyroidism. 2. Diabetes mellitus type 2. 3. Hyperlipidemia. 4. History TIAs. 5. Nephrolithiasis 2011. 6. Rosacea. 7. Osteoporosis. 8. Palpitations 2012. 9. Osteoarthritis. PAST SURGICAL HISTORY: 1. Appendectomy 1959. 2. Breast biopsy 1986. 3. Colonoscopy 2002, 2008. 4. Umbilical hernia repair 1997. 5. Umbilical hernia repair 2000. 6. section 1968. 7. section 1964. OB HISTORY: 3, para 2, 1 miscarriage. SOCIAL HISTORY Marcial is . She and her have been for several years. [facility] [place] [facility] in [place]. She is retired. 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 They do have a pet, a poodle in the home. She does eat a well-balanced diet on most days, triesto pay attention to a diabetic diet and watching her carbohydrates. HOBBIES: She enjoys sewing and quilting and she does baby-sit her 8-year-old grand daughter 3 days per week. EXERCISE: Is not routine. She does try to walk outside several times during the week. TOBACCO USE: She is a lifelong non tobacco user. CAFFEINE USE: Current. She drinks 1 cup of decaffeinated coffee about per week. ALCOHOL USE: None. She has 2 adult children, a son who is 46 and a daughter who is 48. Her son is in very good health. Her daughter has diabetes type 2 as well. She also has migraine headaches. Grandchildren: She has 5 grandchildren, 3 biological and 2 step. Her parents are both . Her mother at age 50 from breast cancer. Her father at age 68 of a myocardial infarction. He had long history of coronary artery disease as well as lung problems. Marcial has 2 brothers. She is the second in a family of 3. Her older brother is 71, and her younger brother is 67. Her younger brother age 67, recently of a brain aneurysm. He had a history of prostate cancer. He had diabetes and high blood pressure as well. COGNITIVE IMPAIRMENT A Mini-Mental State exam was administered. She scored a 27. Interpretation: Negative for cognitive impairment. POTENTIAL RISK FOR DEPRESSION The PHQ-9 score is 7, indicating mild depression. She states she does have difficulty sleeping mostnights. She usually goes to bed with the intentions of getting 8 hours of sleep but she states really of those 8 hours, she really only sleeps about 4. She has questionable night terrors. She often feels she has a nightmare and wakes up and then upon waking, she is having some hallucinations which appears to be hallucinations where she is seeing animals and people in her room. FUNCTIONAL ABILITY AND LEVEL OF SAFETY HEARING SCREEN: She does not wear any hearing devices. Her responses to the Medicare Annual Wellness health questionnaire were all benign for hearing deficit. VISION SCREEN: Last eye exam was March 2013. Today reading the Snellen eye chart with corrective lenses right eye 20/40, left eye 20/25, both eyes 20/20. She states that when she covers her righteye with her left hand, especially after a long time of using it, she is having some double vision in the left eye. However, she feels she is able to read and perform her day-to-day activities to her satisfaction. She has some drops for dry eye that she seldom uses. DENTAL EXAM: She has her own teeth in good repair. She has cleanings every 6 months. She recentlyhad a upper tooth on the left extracted due to pain. ACTIVITIES OF DAILY LIVING: She is independent of all activities of daily living. She is able to manage her own medications. She continues to drive without restrictions and wears her seatbelt 100% of the time. FALL RISK: She denies any falls in the past year. Today she was observed for gait and steadiness and walking in the exam room and she did so in less than 10 seconds without difficulty. She feels herhome is well lit. Loose rugs and mats have been removed and there are adequate handrails and grab bars where needed. HOME SAFETY: The house is without working smoke detectors or carbon monoxide detectors. I have encouraged her to, as soon as possible, have new batteries put into these, asking her 2 sons who are policy officer, to facilitate this for her. HEALTHCARE PROVIDERS AND LIST OF SUPPLIERS Her primary care provider, she is establishing care with Dr. Gail Zazueta. This is coming up within the next month. Her eye doctor is Dr. Self at [place]. She is interested in seeing an concrete journeyman this next time so I have encouraged her to schedule this appointment at [facility] with Dr. Novoa or Dr. Serrano. PRESCRIPTION REFILLS Through [facility] in [place] or the [facility] EDUCATION COUNSELING AND RECOMMENDATIONS 1. Today Marcial was given a handout from the [employer] with a list of resources availableto her as well as a web site and phone number for contacting. 2. She was given a handout from [facility] on care of her feet specifically for diabetic patients. 3. The Power of Prevention educational booklet from [facility]. Page 40 of this booklet was completed today with her most recent preventative service dates, immunization dates, and recommendations for update. Her last mammogram was May 04, 2013. Last colon cancer screen January 03, 2009. Last bone density screen April 29, 2012, showed osteopenia. Last diabetes screen March 13, 2014, her A1c was 7.6%. Last lipid screen was December 12, 2013, total cholesterol was 184, triglycerides 199, HDL of 56, andLDL of 88. IMMUNIZATION DATES January 28, 2008. Prevnar 13, June 21, 2014. Tdap, February 14, 2010. Influenza, December 02, 2013. Zostavax information was given and she was advised to complete. VOLUNTARY ADVANCE CARE PLANNING She currently does not have an advance directive. I have encouraged her to complete this and returnit to be scanned into her medical record. FOLLOWUP FOR DR. ZAZUETA 1. I have ordered a mammogram, bone density screen and a FIT screen today to be completed at her upcoming visit, also the Prevnar 13 was given. 2. She is due for diabetic education refresher. She is considering starting on insulin. She wouldlike to discuss this and I have encouraged her to have her diabetic education refresher done at the [facility] as this is no longer done in [place]. 3. She describes to me some visual hallucinations which she has not brought up to her doctor and nightmares over the past year and a half that she would like to discuss with her doctor. She will be coming in fasting for her upcoming appointment with Gail Zazueta and to establish care. I look forward to seeing her again in 1 year. Dianne London R.N./gene Electronically Signed By: DIANNE LONDON RN On: 06/27/2014 08:15 AM Modified by and Electronically Signed by: DIANNE LONDON RN On: 06/27/2014 08:13 AM Co-Signed By: GAIL VILLAR MD On: 06/28/2014 07:38 AM Source: [facility] [place] MHSDOLBEYNONRADSYS Document Id: [id number] documented in this encounter Procedure Notes Dianne London R.N. - 06/21/2014 9:29 AM CDT Vision Testing Vision Testing Entered On: 06/21/2014 9:37 CDT Performed On: 06/21/2014 9:29 CDT by DIANNE LONDON RN Vision Testing Corrective Lenses : Glasses Eye, Right with Correction : 20/40 Eye, Left w/Correction : 20/25 Eyes, Both with Correction : 20/20 DIANNE LONDON RN - 06/21/2014 9:29 CDT Source: [employer] Document Id: [id number] CDT!6 documented in this encounter Miscellaneous Notes [place] - Dianne London R.N. - 06/21/2014 10:28 AM CDT Ambulatory Vitals Height Weight Ambulatory Vitals Height Weight Entered On: 06/21/2014 10:29 CDT Performed On: 06/21/2014 10:28 CDT by DIANNE LONDON RN Vitals/Ht/Wt Systolic Blood Pressure : 124 mmHg Diastolic Blood Pressure : 80 mmHg NIBP Mean : 95 mmHg BP Location : Right upper extremity Blood Pressure Cuff Size : Large Height : 158 cm(Converted to: 5 ft 2 inch(es), 62 inch(es)) DIANNE LONDON RN - 06/21/2014 10:28 CDT Source: [employer] Document Id: [id number] CDT!8 Miscellaneous - Dianne London RJairoNJairo - 06/21/2014 9:20 AM CDT PHQ-9 PHQ-9 Entered On: 06/21/2014 9:29 CDT Performed On: 06/21/2014 9:20 CDT by DIANNE LONDON RN PHQ-9 Little interest or pleasure in doing things : Not at all Feeling down, depressed, or hopeless : Not at all Trouble falling or staying asleep, or sleeping too much : Nearly every day Feeling tired or having little energy : Not at all Poor appetite or overeating : Nearly every day Feeling bad about yourself or that you are a failure : Several days Trouble concentrating on things : Not at all Moving or speaking slowly; restless or fidgety : Not at all Thoughts that you would be better off /hurting self : Not at all PHQ-9 Calculated Score : 7 Problems make work, home, or dealing with others : Not difficult at all DIANNE LONDON RN - 06/21/2014 9:20 CDT Source: [employer] Document Id: [id number] CDT!13 Dianne Ireland R.N. - 06/21/2014 9:17 AM CDT Obstructive Sleep Apnea Obstructive Sleep Apnea Entered On: 06/21/2014 9:20 CDT Performed On: 06/21/2014 9:17 CDT by DIANNE LONDON RN JUAN Screening Known Obstructive Sleep Apnea : No - NOT diagnosed with JUAN DIANNE LONODN RN - 06/21/2014 9:17 CDT JUAN Assessment Do you have high blood pressure or have you been told to take medication for high blood pressure? : No Frequency of Snoring : Occasionally (4-8 times per year) Frequency of Gasping, Choking, Snorting : Never Total Number of Historical Features : 0 Neck Circumference (cm) : 40/41 Total Sleep Apnea Clinical Score Calc : 3 DIANNE LONDON RN - 06/21/2014 9:17 CDT Source: [employer] Document Id: [id number] CDT!10 Dianne Ireland R.N. - 06/21/2014 9:08 AM CDT Health Assessment Health Assessment Entered On: 06/21/2014 9:17 CDT Performed On: 06/21/2014 9:08 CDT by DIANNE LONDNO RN Health Assessment Complete Health Assessment Complete or Modified : Annual Health Assessment Annual Health Assessment Completed : Yes DIANNE LONDON RN - 06/21/2014 9:08 CDT Nutrition Nutrition Risk Factors by History Adult : None Home Diet : Diabetic Eating Difficulties : None Appetite : Good DIANNE LONDON RN - 06/21/2014 9:08 CDT Functional Current Daily Living Assistance : None DIANNE LONDON RN - 06/21/2014 9:08 CDT Dependent Habits Tobacco Use/Currently Using : No Exposure to Tobacco Smoke : Care provider denies smoking in home Smoking Status : Never smoker DIANNE LONDON RN - 06/21/2014 9:08 CDT Tobacco Use Grid Last Use : never DIANNE LONDON RN - 06/21/2014 9:08 CDT Alcohol Use : No DIANNE LONDON RN - 06/21/2014 9:08 CDT Caffeine Use Grid Caffeine Use : None Type : Coffee, Soft drinks Frequency : Occasionally Amount : 1 cup per week DIANNE LONDON RN - 06/21/2014 9:08 CDT Recreational Drug Use Grid Drug Use : None DIANNE LONDON RN - 06/21/2014 9:08 CDT Psychosocial Domestic Abuse Concerns : None Behavioral Health Screen/Safety Assmt : No [facility] Preference : DIANNE Pace RN - 06/21/2014 9:08 CDT Advance Directive Advanced Directives : No Advance Directive Additional Information : No DIANNE LONDON RN - 06/21/2014 9:08 CDT Educ Needs Learning Style Preference Adult Grid Patient : Verbal explanation Family : None DIANNE LONDON RN - 06/21/2014 9:08 CDT Source: [employer] Document Id: [id number] CDT!39 Miscellaneous - Dianne London R.N. - 06/21/2014 8:52 AM CDT Adult Rn Access Intake/History Adult Rn Access Intake/History Entered On: 06/21/2014 9:08 CDT Performed On: 06/21/2014 8:52 CDT by DIANNE LONDON RN Intake Chief Complaint : Medicare Subsequent Annual Wellness Visit Systolic Blood Pressure : 152 mmHg (HI) Diastolic Blood Pressure : 70 mmHg NIBP Mean : 97 mmHg BP Location : Left upper extremity Blood Pressure Cuff Size : Large Height : 158 cm(Converted to: 5 ft 2 inch(es), 62 inch(es)) Actual Weight : 86.1 kg(Converted to: 189 lb 13 oz) Weight Source : Standing scale Dosing Weight Clinic : 86.1 kg Clinic BSA : 1.94 Body Mass Index : 34.49 kg/m2 DIANNE LONDON RN - 06/21/2014 8:52 CDT General Info Information Given By : Patient Languages : Austrian Is Patient Female and 13-50 no hysterectomy : No DIANNE LONDON RN - 06/21/2014 8:52 CDT Subjective Pain Symptoms : No DIANNE LONDON RN - 06/21/2014 8:52 CDT Dependent Habits Tobacco Use/Currently Using : No Exposure to Tobacco Smoke : Care provider denies smoking in home Smoking Status : Never smoker DIANNE LONDON RN - 06/21/2014 8:52 CDT Tobacco Use Grid Last Use : never DIANNE LONDON RN - 06/21/2014 8:52 CDT Alcohol Use : No DIANNE LONDON RN - 06/21/2014 8:52 CDT Caffeine Use Grid Caffeine Use : None Type : Coffee, Soft drinks Frequency : Occasionally Amount : 1 cup per week Comments (Comment: soda once a month decaf coffee [DIANNE LONDON RN - 06/21/2014 8:52 CDT] ) DIANNE LONDON RN - 06/21/2014 8:52 CDT Recreational Drug Use Grid Drug Use : None DIANNE LONDON RN - 06/21/2014 8:52 CDT ID Screen Drug Resistant Organism : No Travel Within Last 21 Days : No Contact with someone with Ebola : No DIANNE LONDON RN - 06/21/2014 8:52 CDT Source: [facility] [place] [employer] Document Id: [id number] CDT!41 documented in this encounter Plan of Treatment Not on filedocumented as of this encounter Visit Diagnoses Not on filedocumented in this encounter Additional Health Concerns Assessment Noted Time PHQ-9 Depression Total Score: 7 06/21/2014 9:20 AM CD T documented as of this encounter
--- OUTSIDE RECORDS SUMMARY | 2021-09-05 08:01 | XMS_ITS | Encounter Summary ---
:1945 Author Organization [facility] Address [address] [place] [address] Care Team Providers Name Role Phone Unavailable Primary Care Provider Unavailable Encounter Details Date Type Department Care Team Description 06/26/2014 Hospital Encounter HX [facility] Nicki Holt, MAL, C.N.P., D.N.P. [address] [place], [place] [address] (Wo rk) Social History [...] - - Height 158 cm (5' 2.21) 06/26/2014 12:46 PM CDT Body Mass Index - - documented in this encounter Medications at Time of Discharge Medication Sig Dispensed Refills Start Date End Date ASPIRIN ORAL Take 81 mg by mouth daily. Take 0 with food for heart health. documented as of this encounter Miscellaneous Notes Miscellaneous - Nicki Holt, D.N.P., C.N.P. - 06/27/2014 11:42 AM CDT Normal Results Letter 27 Jun 2014 ARCHIE BAZAN [address] [place] [address] [id number] Dear ARCHIE BAZAN, I am pleased to report that your stool test was negative for blood (normal results!!!)!!!!! I hope you are doing well and enjoying some warmer weather! (Thinking of you every time I put my girl to bed with her butterfly blanket!!!!!!!!!!) Take care! Result Name Current Result Normal Range FIT/Fecal Occult Bld-Hart Negative 06/25/2014 Negative - Sincerely, NICKI HOLT [address] [place] [address] Electronic Signature Electronically Signed By: NICKI HOLT DNP, BAG TESTER On: 27 Jun 2014 This document has images extracted. Source: [employer] Document Id: [id number] Electronically signed by Conversion, [facility] Sodium Methylate Operator [id number] at 07/13/2016 7:01 PM CDT Miscellaneous - Conversion, Historical Provider Ser - 06/26/2014 11:59 PM CDT Coding Summary-Paper Based CODING DATE: 07/06/2014 FINAL [facility] STATUS: * Discharged to Home or Self Care PAYOR: Medicare ADMIT DX: V03.82 Need for Prophylactic Vaccination Against Streptococcus Pneumoniae [pneumococcus] REASON FOR VISIT DX: V03.82 Need for Prophylactic Vaccination Against Streptococcus Pneumoniae [pneumococcus] FINAL DX: PRINCIPAL: V03.82 Need for Prophylactic Vaccination Against Streptococcus Pneumoniae [pneumococcus] SECONDARY: PROCEDURES DOCTOR NAME DATE NOTE: The code number assigned matches the documented diagnosis and / or procedure in the patient's chart. However, the narrative phrase printed from the coding software may appear abbreviated, or result in slightly different terminology. Revised Coded By: GUERITA CHAN Revised Date Saved: 07/06/2014 08:07 am Source: [employer] Document Id: [id number] documented in this encounter Plan of Treatment Not on filedocumented as of this encounter Procedures Procedure Name Priority Date/Time Associated Diagnosis Comme nts OCCULT BLOOD, QL, Routine 06/25/2014 12:46 PM Res ults for this IMMUNOCHEMICAL, F CDT procedure are in the results section. documented in this encounter Results Fecal Occult Blood, Colorectal Cancer Screen, Qualitative, Immunochemical (06/25/2014 12:46 PM CDT) athologist Signature Occult Blood, Negative Negative POWERCHART Fecal Comment: Negative result. ??This test will not de tect upper gastrointestinal bleeding; the HemoQuant test ([id number])should be ordered if clinically indicated. Test Performed by: [place] [address] Crime Scene Investigator: Pradeep Parikh II, M.D., Ph.D. Specimen (Source) Anatomical Collection Method Collection Time Re ceived Time Location / / Volume Laterality Stool 06/25/2014 12:46 PM CDT Nicki Holt APRN, C.N.P., D.N.P. LAB BODY FLUID S AND STOOLS ORDERABLES Performing Organization Address City/State/ZIP Code Phon e Number POWERCHART documented in this encounter Visit Diagnoses Not on filedocumented in this encounter Additional Health Concerns Assessment Noted Time PHQ-9 Depression Total Score: 7 06/21/2014 9:20 AM CD T documented as of this encounter
--- OUTSIDE RECORDS SUMMARY | 2021-09-05 08:01 | XMS_ITS | Encounter Summary ---
:1945 Author Organization [facility] Address [address] [place] [address] Care Team Providers Name Role Phone Unavailable Primary Care Provider Unavailable Encounter Details Date Type Department Care Team Description 12/12/2013 Hospital Encounter HX [facility] Vickey Holt, MAL, C.N.P., D. N.P. [address] [place] [address] (Wo rk) Social History Tobacco [...] Sign Reading Time Taken Comments Blood Pressure 124/72 12/12/2013 8:22 AM CDT Pulse 64 12/12/2013 8:22 AM CDT Temperature - - Respiratory Rate 16 12/12/2013 8:22 AM CDT Oxygen Saturation - - Inhaled Oxygen Concentration - - Weight 87.9 kg (193 lb 12.6 oz) 12/12/2013 8:22 AM CDT Height 158 cm (5' 2.21) 12/12/2013 8:22 AM CDT Body Mass Index 35.21 12/12/2013 8:22 AM CDT documented in this encounter Medications at Time of Discharge Medication Sig Dispensed Refills Start Date End Date ASPIRIN ORAL Take 81 mg by mouth daily. Take 0 with food for heart health. documented as of this encounter H&P Notes Vickey Holt D.N.P., CJairoNJairoP. - 12/12/2013 8:13 AM CDT [id number] CHIEF COMPLAINT/REASON FOR VISIT Routine physical examination. HISTORY OF PRESENT ILLNESS Patient is a 68-year-old female that presents to the clinic today for a routine physical examinationand also medication renewal. She does suffer from hyperlipidemia and also type 2 diabetes mellitus in which previously in the past she has utilized a health and classroom technology coach that has actually been very beneficial for her helping her lose weight. She indicates that now she is no longer seeing the health and classroom technology coach as this is no longer a service provided here at the clinic and subsequently she has now had greater than a 12 pound weight gain just in the last year. She indicates that she isaware of her habits that have contributed to her weight gain. She is coming in today for a routine physical examination and hopefully to get back on track as she does indicate that she is planning on starting yoga here relatively soon. She indicates that she is not currently involved in any cardiovascular exercise program at this time. In the past, she has been on metformin and also glipizide in which both these medications were able to be taken off given her weight reduction and overall lifestyle modifications. She indicates that she thinks most likely she will need re-initiation of the metformin at this time. She otherwise denies having any other further concerns or issues. I will note that her mammogram is presently up-to-date in which her last mammogram was completed as of May 04, 2013 and also her colonoscopy was previously completed as of December 2008 with a repeat in 10 years duration. PAST MEDICAL/SURGICAL HISTORY PAST MEDICAL HISTORY: Past medical history includes anxiety since 1987. Hyperlipidemia since 2004. Hypothyroidism since 2012. Type 2 diabetes mellitus since 2007. Osteoarthritis. Osteoporosis with osteopenia. A bone density scan as of April of 2012. Chest palpitations noted in 2012 with a Holter monitor that was completed at that time with a heart rate varied from 75 to 83 beats per minute with no ectopy present. Renal calculi. Rosacea since 2006. TIA diagnosed in 2007. PAST SURGICAL HISTORY: Appendectomy in 1960 Breast biopsy in 1986. Hernia repair in 2001. in 1964 and 1968. Colonoscopy in December of 2008. Colonoscopy in 2002. Hernia repair with mesh in 1998. FAMILY HISTORY Includes a mother at 50 years of age secondary to breast cancer A brother with a history of prostate cancer and type 2 diabetes mellitus. A 2nd brother with a history of type 2 diabetes mellitus. Father at 68 years of age secondary to coronary artery disease and lung cancer. SOCIAL HISTORY Patient is presently . 2, para 2. She is currently not working at this time. She denies ever having any smoking history and denies any alcohol or illicit drug usage. ALLERGIES Azithromycin. Benicar. MEDICATIONS Simvastatin 10 mg by mouth at bedtime Levothyroxine 75 mcg by mouth daily. Xanax 0.5 mg by mouth every 8 hours as needed for anxiety. Aspirin 81 mg by mouth daily. Vitamin D 5000 international units by mouth daily. VITAL SIGNS Temp of 36.5 degrees centigrade, pulse 64 beats per minute, respirations 16 per minute, blood pressure is 124/72. Oxygen saturation is 98% on room air. Height 158 cm, weight 87.9 kg. BMI 35.21 kg/sqm. SYSTEMS REVIEW GENERAL: Denies extreme fatigue, unexplained weight loss/gain or concerns for depression, thoughts of suicide, trouble concentrating or memory concerns. HEENT: Denies visual changes/disturbances, hearing changes/disturbances, difficulty chewing/swallowing. HEART: Denies palpitations, chest pain, s hortness of breath with and without exertion. GASTROINTESTINAL: Denies abdominal pain, difficulty having bowel movements or frequent episodes of diarrhea. GENITOURINARY : Denies urgency, frequency, or burning with urination. Denies coital or post coital pain or other coital concerns. MUSCULOSKELETAL: Denies joint pain or muscle fatigue. NEUROLOGIC: Denies frequent headaches, dizziness or numbness/tingling of the extremities. PHYSICAL EXAMINATION GENERAL: Patient is alert/oriented x3. PSYCHIATRIC: Patients speech is focused and well directed, affect is appropriate. HEAD: Normocephalic/atraumatic. PUPILS: GENE. OROPHARYNX: [place] and moist. TYMPANIC MEMBRANES: Bilateral TMs are clear, bony landmarks noted and within normal limits. NARES: Patent, no erythema or drainage noted. NECK: No anterior/posterior lymphadenopathy or thyromegaly noted. HEART: Regular S1, S2, no murmurs, rubs or gallops noted. LUNGS: Clear to auscultation, no prolonged expiratory phases, wheezing, rales or rhonchi noted. ABDOMEN: Bowel sounds positive in all 4 quadrants, no hepatosplenomegaly noted. BREASTS: Nontender, no masses/nodules palpated, no axillary lymphadenopathy noted, no nipple discharge noted. GENITOURINARY: Normal female external genitalia. Normal appearing cervix without unusual dischargeand nonfriable. Uterus and adnexa are unremarkable. Patient denies cervical motion tenderness. Pap is presently pending. PULSES: Radial/pedal/tibial pulses +2/4. SKIN: Without unusual rashes or suspicious lesions. EXTREMITIES: Equally strong/intact, no lower extremity edema noted. Note that diabetic monofilament testing was completed and noted to be otherwise unremarkable. (Please see EMR for documentation). NEUROLOGIC: Upper/lower deep tendon reflexes are brisk at +2. Cranial nerves II-XII are grossly intact and symmetric. Patient ambulates with a steady gait. DIAGNOSTICS Sodium 138.6, potassium 4.0, creatinine 0.79, GFR greater than 60. Fasting glucose 148, total cholesterol 184, triglycerides 199, HDL 56, LDL 88. Hemoglobin A1c is presently pending. A urine albuminless than 12, urine creatinine 96.2. TSH is also presently pending. IMPRESSION/REPORT/PLAN 1. Routine physical examination. 2. Hyperlipidemia. 3. Hypothyroidism. 4. Type 2 diabetes mellitus. PLAN: 1. Routine physical examination: Presently discussed the overall findings at length with the patient. I did tell her that though with all the various excuses she provided me as to why she was not exercising or watching her weight that these were her own excuses. We discussed about really trying to make lifestyle modifications to overall improve her health and wellness. She would like to be more proactive regarding this. I did actually encourage her to actually maybe even have some kind of outside health coaching. She is next due for a routine physical in 1 year duration. We will plan on contacting her regarding her Pap results. She is otherwise up-to-date for her routine medical care. Shefelt comfortable with this treatment plan. 2. Hyperlipidemia: Presently, at this time, I did reinstate her simvastatin 10 mg by mouth daily inwhich currently her LDL cholesterol is at goal at 88. Her triglycerides are elevated but most likely this is due to her diabetes. We are currently pending her hemoglobin A1c at this time. She felt comfortable with this treatment plan. 3. Hypothyroidism: Presently, at this time, I did reinstate her levothyroxine 75 mcg by mouth dailyin which we will plan on contacting the patient if we require any further adjustments pending her TSH results. We will send her a copy of these results in the mail as well. She felt comfortable with this treatment plan. 4. Type 2 diabetes mellitus: Presently, at this time, given her previous hemoglobin A1c as of 2013 was noted to be 7.49%, I indicated that I feel it would be most appropriate to reinstate hermetformin 500 mg tablets in which she would prefer the 500 mg dosing to take 2 tablets by mouth 2 times a day, in which we will plan on then rechecking her hemoglobin A1c in 3 months' duration. She overall feels very comfortable with this treatment plan. She would like to be more proactive to avoid re-initiation of glipizide at this time. Again, we will plan on contacting the patient regarding herhemoglobin A1c results from today as well and send her a copy in the mail. She felt comfortable with this treatment plan. Patient denied having any further questions or concerns as she was also advised to continue the aspirin 81 mg by mouth daily. Patient ambulated out of the clinic in no acute distress. Ready to learn. No apparent learning barriers were identified. Learning preferences include listening. Explained diagnosis and treatment plan. Patient/Child/Caregiver expressed understanding of the content. Corrine LucasNJairoPJairo/F.N.P/gene Electronically Signed By: VICKEY HOLT DNP, FNP On: 12/13/2013 01:12 PM Source: [facility] MHSDOLBEYNONRADSYS Document Id: [id number] documented in this encounter Miscellaneous Notes Miscellaneous - Ralph Walters - 12/14/2013 10:44 AM CDT Lab Results Document Contains Addenda Addendum by VICKEY HOLT DNP, FNP on 16 December 2013 05:59:56 CDT noted From: RALPH WALTERS To: VICKEY HOLT DNP, FNP; Cc: SYLVIA DARNELL LPN; Sent: 12/14/2013 10:44:44 CDT Subject: Lab Results Patient called requesting lab results, specifically A1c. I could not see that had been completed.Sylvia advised Lab and it was ordered. Called patient and advised labs still pending. She will be notified when complete. Source: [facility] POWERCHART Document Id: [id number] Miscellaneous - Vickey Holt D.N.P., C.N.P. - 12/12/2013 12:17 PM CDT Ambulatory Patient Summary [address] [id number] Visit Information Name: MARCIAL BAZAN [facility] Number: [id number] Current Date: 12/12/2013 12:17:14 Physicians Attending Provider: VICKEY HOLT DNP, FNP Primary Care Provider: VICKEY HOLT DNP, FNP ELIDASTEVENMARCIAL has been given the following list of [...] tablet) 1 Tablet(s), Oral, once a day levothyroxine (levothyroxine 75 mcg (0.075 mg) oral tablet) 1 Tablet(s), Oral, once a day for thyroid replacement Routed to [address] [id number] metFORMIN (metFORMIN 500 mg oral tablet) 2 Tablet(s), Oral, two times a day with meals This is a CHANGE Routed to [address] [address] simvastatin (simvastatin 10 mg oral tablet) 1 Tablet(s), Oral, once a day (at bedtime) Take for highcholesterol. Routed to [address] [address] Stop Taking the Following Medications: Medication list as of 12-12-13 12:17 Attention: If you have any medications at home that are not on this list, DO NOT take them until youcontact your provider for clarification. Give a copy of your medication list to your primary care provider. Update your medication list any time medications or doses are changed and carry your medication list at all times in case of emergency. Electronically Signed By: VICKEY HOLT DNP, FNP Signed On:12-DEC-2013 09:26:03 Your Allergies & Intolerances Substance Reaction Symptoms [...] Your Upcoming Appointments Date Time Location Provider 03/13/2014 08:45 [facility] Gail Gabriel MD Attention: Contact your local Clinic if further appointment detail needed. Your Goals/Additional instructions: Source: [facility] POWERCHART Document Id: [id number] Miscellaneous - Vickey Holt D.N.P., C.N.P. - 12/12/2013 12:17 PM CDT Ambulatory Discharge Medication List [address] [id number] Visit Information Name: MARCIAL BAZAN [facility] Number: [id number] Visit Date: 12/12/2013 12:17:11 Attending Provider: VICKEY HOLT DNP, FNP Primary Care Provider: VICKEY HOLT DNP, FNP BENI JOSE MIGUELPATRICK MAI has been given [...] tablet) 1 Tablet(s), Oral, once a day levothyroxine (levothyroxine 75 mcg (0.075 mg) oral tablet) 1 Tablet(s), Oral, once a day for thyroid replacement Routed to [address] [address] metFORMIN (metFORMIN 500 mg oral tablet) 2 Tablet(s), Oral, two times a day with meals This is a CHANGE Routed to [address] [address] simvastatin (simvastatin 10 mg oral tablet) 1 Tablet(s), Oral, once a day (at bedtime) Take for highcholesterol. Routed to [address] [address] Stop Taking the Following Medications: Medication list as of 12-12-13 12:17 Attention: If you have any medications at home that are not on this list, DO NOT take them until youcontact your provider for clarification. Give a copy of your medication list to your primary care provider. Update your medication list any time medications or doses are changed and carry your medication list at all times in case of emergency. Electronically Signed By: VICKEY HOLT DNP, FNP Signed On:12-DEC-2013 09:26:03 Additional Information: Source: [facility] Document Id: [id number] Miscellaneous - Vickey Holt D.N.PJairo, C.N.P. - 12/12/2013 9:08 AM CDT Quality Measures Quality Measures Entered On: 12/12/2013 9:09 CDT Performed On: 12/12/2013 9:08 CDT by VICKEY HOLT DNP, FNP Diabetes Date of Last Foot Exam : 12/12/2013 CDT VICKEY HOLT DNP, FNP - 12/12/2013 9:08 CDT Foot Exam Grid Left foot exam Right foot exam Dorsalis Pedis Pulse : Normal Normal Post Tibial Pulse : Normal Normal Capillary Refill : Less than 3 seconds Less than 3 seconds 10 gm Monofilament Sensation Check : Intact Intact VICKEY HOLT DNP, FNP - 12/12/2013 9:08 CDT VICKEY HOLT DNP, FNP - 12/12/2013 9:08 CDT [facility] Document Id: [id number] CDT!14 Miscellaneous - Sylvia Darnell L.P.N. - 12/12/2013 8:33 AM CDT Obstructive Sleep Apnea Obstructive Sleep Apnea Entered On: 12/12/2013 8:34 CDT Performed On: 12/12/2013 8:33 CDT by SYLVIA DARNELL LPN JUAN Screening Known Obstructive Sleep Apnea : No - NOT diagnosed with JUAN SYLVIA DARNELL LPN - 12/12/2013 8:33 CDT JUAN Assessment Do you have high blood pressure or have you been told to take medication for high blood pressure? : No Frequency of Snoring : Rarely (1-2 times per year) Frequency of Gasping, Choking, Snorting : Never Total Number of Historical Features : 0 Neck Circumference (cm) : 40/41 Total Sleep Apnea Clinical Score Calc : 3 SYLVIA DARNELL LPN - 12/12/2013 8:33 CDT Source: [facility] Document Id: [id number] CDT!10 Miscellaneous - Sylvia Darnell L.PJairoNJairo - 12/12/2013 8:22 AM CDT Adult Community Health Program Coordinator Intake/History Adult Community Health Program Coordinator Intake/History Entered On: 12/12/2013 8:25 CDT Performed On: 12/12/2013 8:22 CDT by SYLVIA DARNELL LPN Intake Temperature Core : 36.5 DegC(Converted to: 97.7 DegF) Peripheral Pulse Rate : 64 /min Respiratory Rate : 16 /min Heart Rhythm : Regular Systolic Blood Pressure : 124 mmHg Diastolic Blood Pressure : 72 mmHg NIBP Mean : 89 mmHg BP Location : Left upper extremity Blood Pressure Cuff Size : Regular SpO2 : 98 % Oxygen Therapy : Room air Actual Weight : 87.9 kg(Converted to: 193 lb 13 oz) Weight Source : Standing scale Dosing Weight Clinic : 87.9 kg Clinic BSA : 1.96 Body Mass Index : 35.21 kg/m2 Neck Circumference : 41.5 cm(Converted to: 16 inch(es)) SYLVIA DARNELL [facility] - 12/12/2013 8:26 CDT Chief Complaint : Pre-op for colonoscopy Height : 158 cm(Converted to: 5 ft 2 inch(es), 62 inch(es)) SYLVIA DARNELL [facility] - 12/12/2013 8:22 CDT General Info Information Given By : Patient Languages : Greenlandic Is Patient Female and 13-50 no hysterectomy : No SYLVIA DARNELL LPN - 12/12/2013 8:22 CDT Subjective Pain Symptoms : No ADRNELLSYLVIA [facility] O[facility]ER - 12/12/2013 8:22 CDT Dependent Habits Tobacco Use/Currently Using : No Tobacco Use/Last 12 months : No Tobacco Use/Advised to Quit : No Exposure to Tobacco Smoke : Care provider denies smoking in home Smoking Status : Never smoker SYLVIA DARNELL [facility] - 12/12/2013 8:22 CDT Tobacco Use Grid Last Use : Never SYLVIA DARNELL LPN 12/12/2013 8:22 CDT Alcohol Use : No SYLVIA DARNELL [employer] [facility] 12/12/2013 8:22 CDT Caffeine Use Grid Caffeine Use : None Frequency : Occasionally Amount : 1 cup per week SYLVIA DARNELL [facility] 12/12/2013 8:22 CDT Recreational Drug Use Grid Drug Use : None SYLVIA DARNELL [facility] 12/12/2013 8:22 CDT [facility] Document Id: [id number] CDT!19 documented in this encounter Plan of Treatment Not on filedocumented as of this encounter Procedures Procedure Name Priority Date/Time Associated Diagnosis Comme nts THINPREP SCREEN HPV Routine 12/12/2013 10:12 AM R esults for this REFLEX CDT procedure are i n the results section. ALBUMIN, RANDOM, U Routine 12/12/2013 9:47 AM Re sults for this CDT procedure are i n the results section. LIPID PANEL, S Routine 12/12/2013 9:14 AM Result s for this CDT procedure are i n the results section. THYROID-STIMULATING Routine 12/12/2013 9:14 AM R esults for this HORMONE-SENSITIVE CDT procedure are in (S-TSH) the results section. BASIC METABOLIC Routine 12/12/2013 9:14 AM Resul ts for this PANEL, S/P CDT procedure are i n the results section. documented in this encounter Results Pathology ThinPrep Screen HPV Reflex (12/12/2013 10:12 AM CDT) [facility] gist Method Time Signature Interpretation [id number] POWERCHART HXThPrep Scrn See Comment POWERCHART [facility] Comment: A. ??ThinPrep Pap Test Screen (Cervical/ Endocervical HPV Reflex): Satisfactory for evaluation. Negative for intraepithelial lesion or m alignancy. [facility] See Comment [facility]IT RCHART Comment: Report electronically signed by BLANCA Mcgrath (ASCP) 12/20/2013 10:28 Interpreted by: BLANCA Mcgrath (ASCP) Spec [facility] See Comment POWERCHART Comment: A. ??ThinPrep Pap Test Screen (Cervical/ Endocervical HPV Reflex): Received cloudy specimen in ThinPrep via l. Test Performed by: [place] [address] Community Health Program Coordinator: Ronak Escobar Specimen (Source) Anatomical Collection Method Collection Time Re ceived Time Location / / Volume Laterality Cervix/Endocervix 12/12/2013 10:12 AM CDT Vickey Holt OIL WELL LOGGER, C.N.P., D.N.P. LAB PAP PATHDX ORDERABLES Performing Organization Address City/State/ZIP Code Phon e Number POWERCHART (ABNORMAL) Microalbumin, Random, Urine (12/12/2013 9:47 AM CDT) Analysis Performed At Patho logist Time Signature HXU Albumin % <12.0 (L) 12.0 - POWERCHART 30.0 MGL Creatinine, 96.2 30.0 - POWERCHART Random, U 125.0 MGDL Albumin/Creati <12 0 - 25 POWERCHART nine Ratio MGGM Specimen (Source) Anatomical Collection Method Collection Time Re ceived Time Location / / Volume Laterality Urine 12/12/2013 9:47 AM CDT Vickey Holt APRN C.N.P., D.N.P. LAB URINE ORDE RABLES Performing Organization Address City/State/ZIP Code Phon e Number POWERCHART Thyroid-Stimulating Hormone-Sensitive (s-TSH) (12/12/2013 9:14 AM CDT) athologist Signature TSH 4.35 0.30 - 5.00 POWERCHART (Thyrotropin) MCIUML Specimen (Source) Anatomical Collection Method Collection Time Re ceived Time Location / / Volume Laterality Blood 12/12/2013 9:14 AM CDT Vickey Holt APRN C.N.P., D.N.P. LAB BLOOD ADD- ON Performing Organization Address City/State/ZIP Code Phon e Number POWERCHART (ABNORMAL) BMP (Basic Metabolic Panel) (12/12/2013 9:14 AM CDT) athologist Signature Anion Gap 15 10 - 20 POWERCHART MMOLL BUN (Blood 15 7 - 18 POWERCHART Urea MGDL Nitrogen), S Chloride, S 103 98 - 107 POWERCHART MMOLL CO2 Total 24.6 23.0 - POWERCHART 29.0 MMOLL Creatinine, S 0.79 0.60 - POWERCHART 1.30 MGDL Glucose 148 (H) 70 - 139 POWERCHART MGDL Calcium, 9.8 8.8 - 10.2 POWERCHART Total, S MGDL Sodium, S 138.6 135.0 - POWERCHART 145.0 MML Potassium, S 4.0 3.6 - 4.8 POWERCHART MMOLL HXeGFR (MDRD) >60 >=60 POWERCHART [id number] eGFR >60 >=60 POWERCHART Black/ [id number] [place] Specimen (Source) Anatomical Collection Method Collection Time Re ceived Time Location / / Volume Laterality Blood 12/12/2013 9:14 AM CDT Vickey Holt APRN, C.N.P., D.N.P. LAB BLOOD ADD- ON Performing Organization Address City/State/ZIP Code Phon e Number POWERCHART (ABNORMAL) Lipid Panel (12/12/2013 9:14 AM CDT) athologist Signature Cholesterol, 184 0 - 200 POWERCHART Total MGDL Comment: <200 mg/dL Desirable 200-239 mg/dL Borderline High >239 mg/dL High HX HDL 56 35 - 60 MGDL POWERCHART Comment: > 60 mg/dL Desirable 40 ? 60 mg/dL Low Risk <40 mg/dL Undesirable Triglycerides 199 (H) 9 - 150 MGDL POWERCHART Comment: <150 mg/dL Desirable 150-199 mg/dL Borderline High 200-499 mg/dL High > 499 Very High Calculated LDL 88 (L) 100 - 129 MGDL POWERCHART Total Cholesterol/HDL Ratio 3 PO WERCHART Specimen (Source) Anatomical Collection Method Collection Time Re ceived Time Location / / Volume Laterality Blood 12/12/2013 9:14 AM CDT Vickey Holt APRN, C.N.P., D.N.P. LAB BLOOD ADD- ON Performing Organization Address City/State/ZIP Code Phon e Number POWERCHART documented in this encounter Visit Diagnoses Not on filedocumented in this encounter Additional Health Concerns Assessment Noted Time PHQ-9 Depression Total Score: 1 06/01/2013 1:42 PM CD T documented as of this encounter
--- OUTSIDE RECORDS SUMMARY | 2021-09-05 08:01 | XMS_ITS | Encounter Summary ---
:1945 Author Organization [facility] Address [address] [place] [address] Care Team Providers Name Role Phone Unavailable Primary Care Provider Unavailable Encounter Details Date Type Department Care Team Description 01/27/2013 Hospital Encounter HX [facility] Nicki Holt, MAL, C.N.P., D. N.P. [address] [place] [address] (Wo rk) Social History Tobacco [...] Progress Notes Conversion, Historical Provider Ser - 01/27/2013 2:16 PM CST [id number] HEALTH AND WELLNESS COACHING Patient was seen at [facility] in [place] on 01/27/2013 for followup wellness coaching visit around the area of diabetes/weight loss. CHIEF COMPLAINT/REASON FOR VISIT Followup wellness coaching visit. PHYSICAL EXAMINATION Her weight is at 82.7 kg which is at 181.94 pounds. This is no change since last session. SESSION OVERVIEW Today we touched base on our wellness coaching session in regard to her overall goal completion and also how she is feeling in regard to her surgery and her current diagnosis of frozen shoulder. She reported that she met with her surgeon yesterday and he believes that he can fix the frozen shoulder with using his physical therapists on hand and is going to have her start doing work with them as soonas possible looking at a 2 to 3 week PT time and will also be working with her himself. She is hopeful and excited that this may be helpful in some of the movement and giving her more movement and mobility and lessening the pain in her shoulder since the surgery. We also talked about her goals. Shewas successful this week creating a menu plan for scheduled eating that helped her to avoid making unhealthy choices or falling into sugary or processed sweets or carb snacks. She also has been approaching the all or nothing approach and noticing when she has that thought that she can allow herself just a small snack or drink a little bit of water or exercise when she thinks she is hungry versus bored or stressed. She feels like she has been successful over the last week and would like to continueon with the menu planning and meeting weekly to get back up on a regular routine again. She also shared that her blood sugar numbers have been lower and she is pleased with that and feels that it is adifferentiation due to her changing her diet and eating more healthy vegetables and proteins and cutting out a lot of the sugars and starches. She also found a new kind of chip that she found enjoyable that also has lower sodium and does not have a high carb level. So she is finding other alternate s trategies in her life and ways that she can manage her health and be proactive moving forward. In addition, she did get a massage and has been working on relieving stress and anxiety in her life as well. FOLLOWUP PLAN We will continue to see every week moving forward towards the holiday season as she works toward stepping back into her wellness routine. Annie Pérez/[facility] Electronically Signed By: ANNIE PÉREZ On: 02/01/2013 01:47 PM Source: [facility] MHSDOLBEYNONRADSYS Document Id: [id number] documented in this encounter Miscellaneous Notes Miscellaneous - Nicki Holt D.N.P., C.N.P. - 02/11/2013 4:13 PM [employer] Results Notification Document Contains Addenda Addendum by NICKI HOLT DNP, FNP on 15 February 2013 15:56:41 [employer] noted Addendum by VITALIY VILLEDA LPN on 15 February 2013 09:25:17 [employer] From: VITALIY VILLEDA LPN To: NICKI HOLT DNP, FNP; Sent: 02/15/2013 09:25:17 [employer] Show up: 02/15/2013 09:24:00 [employer] Subject: RE: Results Notification Spoke with Marcial, states, feeling better, not quit so tired. Still see's blood in urine off/on. Encouraged patient to make f/u appt with Nicki in 6-8wks. States, okay Addendum by VITALIY VILLEDA LPN on 14 February 2013 14:48:07 [employer] Left message to return call. From: NICKI HOLT DNP, FNP To: VITALIY VILLEDA LPN; Sent: 02/11/2013 16:13:23 [employer] ! Show up: 02/11/2013 22:13:23 [facility] Subject: Results Notification Actions: Notify patient of results Reminder Comments: please call pt. with results, contaminated specimen. thank you. Results: Date Result Type Ind Result Name MBO Review Culture Urine Source: [facility] POWERCHART Document Id: [id number] Electronically signed by Conversion, [facility] Contact Center Specialist [id number] at 07/16/2016 3:10 PM CDT documented in this encounter Plan of Treatment Not on filedocumented as of this encounter Procedures Procedure Name Priority Date/Time Associated Diagnosis Comme nts BACTERIAL CULTURE, Routine 02/07/2013 10:00 AM Re sults for this AEROBIC, URINE [employer] procedure are in the results section. documented in this encounter Results Bacterial Culture, Aerobic, Urine (02/07/2013 10:00 AM [employer]) Patholo gist Method Time Signature Bacterial POWERCHART Culture, Aerobic, Urine HXPre No growth at 1 POWERCHART day. HXPre Continuing POWERCHART incubation HXPre GNR POWERCHART Comment: >100,000 cfu/mL Gram Negative Rods Identification and susceptibility to fol low. HXPre No growth at 1 day. POWERCHART HXPre Laboratory Error. [facility] 02/08/2013 14:09:15 POWERCHART HXPre (*) Gram Negative Rods reported previously has been POWERCHART removed from the report. HXPre (*) Previous positive report issued in error. Error due POWERCHART to Laboratory Error. [facility] 02/08/2013 14:09:38. HXFinal >3 organisms present - probable contamination, suggest POWERCHART repeat culture. HXFinal No further work-up. POWERCHART HXFinal (*) Gram Negative Rods reported previously has been POWERCHART removed from the report. HXFinal (*) Previous positive report issued in error. Error due POWERCHART to Laboratory Error. [facility] 02/08/2013 14:09:38. Specimen (Source) Anatomical Collection Method Collection Time Re ceived Time Location / / Volume Laterality Urine, Clean 02/07/2013 10:00 Catch AM [employer] Nicki Holt APRN, C.N.P., D.N.P. LAB MICROBIOLO GY - GENERAL ORDERABLES Performing Organization Address City/State/ZIP Code Phon e Number POWERCHART documented in this encounter Visit Diagnoses Not on filedocumented in this encounter
--- OUTSIDE RECORDS SUMMARY | 2021-09-05 08:01 | XMS_ITS | Encounter Summary ---
:1945 Author Organization [facility] Address [address] [place] [address] Care Team Providers Name Role Phone Unavailable Primary Care Provider Unavailable Encounter Details Date Type Department Care Team Description 12/16/2012 Hospital Encounter HX [facility] Nicki Anthony, MAL, C.N.P., D. N.P. [address] [place] [phone] (Wo rk) Social History Tobacco [...] Progress Notes Conversion, Historical Provider Ser - 12/16/2012 8:55 AM CDT [id number] HEALTH & WELLNESS COACHING Patient was seen at [facility] in [place] on 12/16/2012 for a follow-up wellnesscoaching visit around the area of diabetes/stress management. CHIEF COMPLAINT/REASON FOR VISIT Follow-up wellness coaching visit. OBJECTIVE INFORMATION/SESSION OVERVIEW Today Marcial visited me after receiving her shoulder surgery in the last few weeks. She reports that her overall energy level has been down and mood has been a little bit down in nature as well. She reports that on her scale she has been up 5 pounds which she is not happy about and attributes this to boredom and stress and anxiety eating. 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 She discussed that she would like to start off with a regular walking routine in addition to increasing her water intake and planning her meals once again. 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 NEW GOALS SET She will come back in with a frequency of every 2 weeks for the next few months getting back to speed in her wellness lifestyle plan. This will look like her walking daily, drinking water, and also planning out her meals and amounts of her meals size. In addition, she is wanting to lose the 5 poundsthat she has put on since her surgery and would like to get down further in her weight to her visionof her ideal weight. FOLLOWUP PLAN We will continue to see every 2 weeks moving forward towards her goals. Annie Pérez/anrol cc: Nicki Anthony D.N.P./[employer] Electronically Signed By: ANNIE PÉREZ On: 12/17/2012 10:19 AM Source: [facility] MHSDOLBEYNONRADSYS Document Id: [id number] documented in this encounter Plan of Treatment Not on filedocumented as of this encounter Visit Diagnoses Not on filedocumented in this encounter
--- OUTSIDE RECORDS SUMMARY | 2021-09-05 08:01 | XMS_ITS | Encounter Summary ---
:1945 Author Organization [facility] Address [address] [place] [address] Care Team Providers Name Role Phone Unavailable Primary Care Provider Unavailable Encounter Details Date Type Department Care Team Description 07/28/2014 Hospital Encounter HX [facility] COORDINATOR Gail Garrison M.D. [id number] [place] [phone] (Wo rk) Social History Tobacco Use [...] - - Height 158 cm (5' 2.21) 07/28/2014 9:48 AM CDT Body Mass Index - - documented in this encounter Medications at Time of Discharge Medication Sig Dispensed Refills Start Date End Date ASPIRIN ORAL Take 81 mg by mouth daily. Take 0 with food for [employer]. documented as of this encounter Progress Notes Rebecca Gregorio, JOAQUIN, LD - 07/28/2014 6:02 AM CDT Outpatient dietitian visit RD met with patient for 45 minutes today and discussed diet to assist with diabetes management. Patient also with hyperlipidemia, and TIA history. Patient with BMI of 34.13. A1C=7.6. Diet recall taken: Breakfast is normally cheerios and a banana with blueberries. Noon time she has a salad or a sandwich or sometimes leftovers....usually lots of veggies. Patient nibbles around 4-5 on a peanut butter and apple or sometimes will have something sweet. At supper which is around 6:00 has a larger meal with meat, veggies. Will have a carb like a slice of bread or a potato either white or sweet. Around 9:00 patient has popcorn or chips for a snack. RD discussed with patient the importance of having protein and carbohydrate mixed together so adding protein at breakfast and cutting back on some of the carb. Encouraged having a morning snack of an apple and peanut butter, or nuts and fruit, or indian yogurt. Discussed portion control using the plate method for noon meal, and evening meal and adding a snack that includes carb and protein for between meals. Encourage a small gradual wt loss of 1-2# per week related to obesity. Taught carb counting using My Food Plan and encouraged no more than 3-4 carb choices per meal and 1-2 carb choices for snacks. Also encouraged adding more physical activity with 3-[address] will follow as needed. Darcy Gregorio MBA, RD, LD Electronically Signed By: REBECCA GREGORIO On: 08/16/2014 06:10 AM Source: [employer] POWERCHART Document Id: [id number] documented in this encounter Plan of Treatment Not on filedocumented as of this encounter Visit Diagnoses Not on filedocumented in this encounter Additional Health Concerns Assessment Noted Time PHQ-9 Depression Total Score: 7 06/21/2014 9:20 AM CD T documented as of this encounter
--- OUTSIDE RECORDS SUMMARY | 2021-09-05 08:01 | XMS_ITS | Encounter Summary ---
:1945 Author Organization [facility] Address [address] [place] [address] Care Team Providers Name Role Phone Unavailable Primary Care Provider Unavailable Encounter Details Date Type Department Care Team Description 12/14/2013 Hospital Encounter [facility] Nicki Holt, MAL, C.N.P., D.N.P. [address] [place], [place] [phone] (Wo rk) Social History [...] - - Height 158 cm (5' 2.21) 12/14/2013 10:45 AM CDT Body Mass Index - - documented in this encounter Medications at Time of Discharge Medication Sig Dispensed Refills Start Date End Date ASPIRIN ORAL Take 81 mg by mouth daily. Take 0 with food for heart health. documented as of this encounter Miscellaneous Notes Miscellaneous - Nicki Holt, D.N.P., C.N.P. - 12/16/2013 6:16 AM CDT Normal Results Letter 16 December 2013 ARCHIE BAZAN [address] [place] [address] [id number] Dear ARCHIE BAZAN, Your kidney function, electrolytes and thyroid function all look great! As we expected, your blood sugars are very high! This is also why your triglycerides are high! The rest of your results look pretty good. Please start back on your medication so we can improve these numbers as quickly as possible!! We need to have your blood sugars checked again in 3 months. We will call you when you are due for this! If you have questions or concerns, please do not hesitate to call our office. Result Name Current Result Previous Result Normal Range U Albumin (mg/L) (L) <12.0 12/12/2013 (L) <12.0 06/15/2012 12.0 - 30.0 U Creatinine (mg/dL) 96.2 12/12/2013 86.8 06/15/2012 30.0 - 125.0 U Alb/Creatinine Ratio (mg/gm) <12 12/12/2013 <14 06/15/2012 0 - 25 Sodium Lvl (mM/L) 138.6 12/12/2013 139.0 11/16/2012 135.0 - 145.0 Potassium Lvl (mmol/L) 4.0 12/12/2013 4.7 11/16/2012 3.6 - 4.8 Chloride (mmol/L) 103 12/12/2013 104 11/16/2012 98 - 107 CO2 (mmol/L) 24.6 12/12/2013 27.9 11/16/2012 23.0 - 29.0 AGAP (mmol/L) 15 12/12/2013 12 11/16/2012 10 - 20 Glucose Lvl (mg/dL) (H) 148 12/12/2013 (H) 158 11/16/2012 70 - 139 Creatinine (mg/dL) 0.79 12/12/2013 0.89 11/16/2012 0.60 - 1.30 EGFR (MDRD) (mL/min/1.73m2) >60 12/12/2013 >60 11/16/2012 >=60 - EGFR (MDRD) (mL/min/1.73m2) >60 12/12/2013 >60 11/16/2012 >=60 - BUN (mg/dL) 15 12/12/2013 (H) 19 11/16/2012 7 - 18 Calcium Lvl (mg/dL) 9.8 12/12/2013 9.5 11/16/2012 8.8 - 10.2 Cholesterol (mg/dL) 184 12/12/2013 160 02/07/2013 0 - 200 Trig (mg/dL) (H) 199 12/12/2013 119 02/07/2013 9 - 150 HDL (mg/dL) 56 12/12/2013 56 02/07/2013 35 - 60 LDL Calculated (mg/dL) (L) 88 f0 12/12/2013 (L) 80 02/07/2013 100 - 129 Chol/HDL Ratio 3 12/12/2013 3 02/07/2013 TSH (mcIU/mL) 4.35 12/12/2013 2.54 04/07/2013 0.30 - 5.00 Hgb A1c (% A1C) (H) 8.3 12/12/2013 (H) 7.49 05/26/2013 - <=5.6 Sincerely, NICKI HOLT [id number] [address] Electronic Signature Electronically Signed By: NICKI HOLT DNP, FNP On: 16 December 2013 This document has images extracted. Source: [facility] POWERCHART Document Id: [id number] documented in this encounter Plan of Treatment Not on filedocumented as of this encounter Procedures Procedure Name Priority Date/Time Associated Diagnosis Comme nts HEMOGLOBIN A1C, B Routine 12/12/2013 9:10 AM Res ults for this CDT procedure are i n the results section. documented in this encounter Results (ABNORMAL) Hemoglobin A1c (12/12/2013 9:10 AM CDT) P athologist Signature Hemoglobin A1c, 8.3 (H) <=5.6 A1C POWERCHART B Specimen (Source) Anatomical Collection Method Collection Time Re ceived Time Location / / Volume Laterality Blood 12/12/2013 9:10 AM CDT Nicki Holt [employer], C.N.P., D.N.P. LAB BLOOD ADD- ON Performing Organization Address City/State/ZIP Code Phon e Number POWERCHART documented in this encounter Visit Diagnoses Not on filedocumented in this encounter Additional Health Concerns Assessment Noted Time PHQ-9 Depression Total Score: 1 06/01/2013 1:42 PM CD T documented as of this encounter
--- OUTSIDE RECORDS SUMMARY | 2021-09-05 08:01 | XMS_ITS | Encounter Summary ---
:1945 Author Organization [facility] Address [address] [place] [address] Care Team Providers Name Role Phone Unavailable Primary Care Provider Unavailable Encounter Details Date Type Department Care Team Description 04/24/[address] [facility] Nicki Holt, MAL, C.N.P., D. N.P. [address] [place] [address] (Wo rk) Social History Tobacco [...] Sign Reading Time Taken Comments Blood Pressure 137/55 04/24/2014 1:15 PM CDT Pulse 68 04/24/2014 1:15 PM CDT Temperature - - Respiratory Rate 20 04/24/2014 1:15 PM CDT Oxygen Saturation - - Inhaled Oxygen Concentration - - Weight 88.2 kg (194 lb 7.1 oz) 04/24/2014 1:15 PM CDT Height 158 cm (5' 2.21) 04/24/2014 1:15 PM CDT Body Mass Index 35.33 04/24/2014 1:15 PM CDT documented in this encounter Medications at Time of Discharge Medication Sig Dispensed Refills Start Date End Date ASPIRIN ORAL Take 81 mg by mouth daily. Take 0 with food for heart health. documented as of this encounter Progress Notes Nicki Holt D.N.P., SimoneNLizbeth. - 04/24/2014 12:58 PM CDT [id number] CHIEF COMPLAINT/REASON FOR VISIT Follow up type 2 diabetes mellitus. HISTORY OF PRESENT ILLNESS Patient is a 68-year-old female who presents to the clinic today with chief complaint of having elevated blood sugars. I will note that at one point in time, the patient was able to significantly reduce her A1c's down to the 6% range and was able to come off of her metformin and her glipizide as she has wanted to with significant weight reduction. 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 She is currently very sedentary. She indicates that she is aware she does need to be more proactive regarding her overall health and wellness. She does tolerate taking a lower dose of metformin 500 mg tablets 2 times a day, in which 1000 mg causes GI upset, and indicates that it does not matter if it is extended release or not. She also has been somewhat intolerant taking glipizide 2.5 mg daily and even though with elevated blood sugars at 5 mg she feels this is too much and she develops more hypoglycemic events and tends to then overcorrect herself with her diet. She is checking her blood sugars routinely and is aware that her blood sugars again continue to be elevated. Her hemoglobin A1c was noted to be 7.6% on March 13, 2014. I had asked her to come in today for a followup to ensure that she was making progressive dietary and lifestyle changes, as we also re-initiated her back on her glipizide amonth ago. She feels like things are going well; however, she again has not made any lifestyle changes. She is aware that other treatment includes more medications and eventually insulin replacement. She would like to avoid further medications and insulin at all costs at this time. She has used a health and project coach in the past which she was very successful with; however, she feels unless so meone is holding her hand it is very easy for her to get off of a healthy lifestyle. She is againcoming in today for ongoing evaluation. PAST MEDICAL/SURGICAL HISTORY Reviewed. Please see chart. FAMILY HISTORY Reviewed. Please see chart. MEDICATIONS Reviewed. Please see chart. ALLERGIES Reviewed. Please see chart. PHYSICAL EXAMINATION GENERAL: Patient is alert, well-nourished, 68-year-old female that otherwise appears to be in no acute distress. HEAD: Normocephalic, atraumatic. Remainder of further examination deferred at this time. IMPRESSION/REPORT/PLAN Type 2 diabetes mellitus. PLAN: After discussing the overall findings at length with the patient, I continue to diet counselor her regarding the lifestyle health and wellness changes, as it is overall imperative to her health and wellness. We discussed other options outside of medication including insulin long-term, in which I feelthis is to the patient's benefit having a discussion regarding this issue as she is quite fearful ofhaving to be on any more medications. I indicated that the only way to really ensure that she has close monitoring. She feels very comfortable with this treatment plan. She is to follow up in the next month's duration. She will be also establishing care with Dr. Gail Haas. Again, I e ncouraged the patient to continue pursuing the lifestyle modifications that she would like to; however, she does require more of an aggressive discussion telling her exactly what she needs to do. 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 She will plan on following up with Dr. Gabriel for ongoing care as itpertains to her diabetes and also hopeful that she will be able to get her blood sugars back under better control with better weight reduction. She denies having any other further concerns or issues.Patient left clinic in no acute distress. Ready to learn. No apparent learning barriers were identified. Learning preferences include listening. Explained diagnosis and treatment plan. Patient/Child/Caregiver expressed understanding of the content. Nicki Holt D.N.P./F.N.P/gene cc: Gail Gabriel M.D. [facility] in [address] [address] Electronically Signed By: NICKI HOLT DNP, FNP On: 04/25/2014 06:04 PM Source: [facility] [id number] Document Id: [id number] documented in this encounter Miscellaneous Notes Miscellaneous - Nicki Holt D.N.P., C.N.P. - 04/24/2014 2:21 PM CDT Ambulatory Patient Summary [address] [place] [id number] Visit Information Name: ARCHIE BAZAN [facility] Number: [id number] Current Date: 04/24/2014 14:21:18 Physicians Attending Provider: NICKI HOLT DNP, FNP [...] the Following Medications: Medication list as of 04-24-14 14:21 Attention: If you have any medications at [...] emergency. Electronically Signed By: NICKI HOLT DNP, ORACLE EBS CONSULTANT Signed On:24-APR-2014 14:21:08 Your Allergies & Intolerances Substance Reaction Symptoms [...] appointment detail needed. Your Goals/Additional instructions: Source: [facility] POWERCHART Document Id: [id number] Miscellaneous - Nicki Holt D.N.P., C.N.P. - 04/24/2014 2:21 PM CDT Ambulatory Discharge Medication List [address] [place] [id number] Visit Information Name: ARCHIE BAZAN [facility] Number: [id number] Visit Date: 04/24/2014 14:21:16 Attending Provider: NICKI HOLT DNP, FNP Primary [...] the Following Medications: Medication list as of 04-24-14 14:21 Attention: If you have any medications at [...] emergency. Electronically Signed By: NICKI HOLT DNP, ORACLE EBS CONSULTANT Signed On:24-APR-2014 14:21:08 Additional Information: Source: [facility] POWERCHART Document Id: [id number] Miscellaneous - Jie Thomason L.PJairoN. - 04/24/2014 1:15 PM CDT Adult Plant Quality Manager Intake/History Adult Plant Quality Manager Intake/History Entered On: 04/24/2014 13:19 CDT Performed On: 04/24/2014 13:15 CDT by JIE THOMASON LPN Intake Chief Complaint : Follow up Type II Diabetes. Bumps on left arm-ocassional pain. Temperature Core : 36.7 DegC(Converted to: 98.1 DegF) Peripheral Pulse Rate : 68 /min Respiratory Rate : 20 /min Systolic Blood Pressure : 137 mmHg Diastolic Blood Pressure : 55 mmHg NIBP Mean : 82 mmHg BP Location : Left upper extremity Blood Pressure Cuff Size : Large SpO2 : 97 % Oxygen Therapy : Room air Height : 158 cm(Converted to: 5 ft 2 inch(es), 62 inch(es)) Actual Weight : 88.2 kg(Converted to: 194 lb 7 oz) Weight Source : Standing scale Dosing Weight Clinic : 88.2 kg Clinic BSA : 1.97 Body Mass Index : 35.33 kg/m2 JIE THOMASON LPN - 04/24/2014 13:15 CDT General Info Information Given By : Patient Preferred Communication Mode : Verbal Languages : Singaporean Is Patient Female and 13-50 no hysterectomy : No JIE THOMASON LPN - 04/24/2014 13:15 CDT Subjective Pain Symptoms : No JIE THOMASON LPN - 04/24/2014 13:15 CDT Dependent Habits Tobacco Use/Currently Using : No Exposure to Tobacco Smoke : Care provider denies smoking in home Smoking Status : Never smoker JIE THOMASON LPN - 04/24/2014 13:15 CDT Tobacco Use Grid Last Use : Never JIE THOMASON LPN - 04/24/2014 13:15 CDT Alcohol Use : No JIE THOMASON LPN - 04/24/2014 13:15 CDT Caffeine Use Grid Caffeine Use : None Frequency : Occasionally Amount : 1 cup per week KATELIN JIE Salas LPN - 04/24/2014 13:15 CDT Recreational Drug Use Grid Drug Use : None JIE THOMASON LPN - 04/24/2014 13:15 CDT ID Screen Drug Resistant Organism : No Travel Within Last 21 Days : No Contact with someone with Ebola : No JIE THOMASON LPN - 04/24/2014 13:15 CDT Source: [employer] Document Id: [id number] CDT!46 Miscellaneous - Diana Cardoza LJairoP.NJairo - 03/27/2014 11:39 AM CST Quality Measures Quality Measures Entered On: 04/06/2014 11:39 LEARNING ANALYST Performed On: 03/27/2014 11:39 LEARNING ANALYST by DIANA CARDOZA LPN Depression PHQ-9 Score : 4 DIANA CARDOZA LPN - 04/06/2014 11:39 LEARNING ANALYST Source: [employer] Document Id: [id number] LEARNING ANALYST!3 NING ANALYST documented in this encounter Plan of Treatment Not on filedocumented as of this encounter Visit Diagnoses Not on filedocumented in this encounter Additional Health Concerns Assessment Noted Time PHQ-9 Depression Total Score: 1 06/01/2013 1:42 PM CD T documented as of this encounter
--- OUTSIDE RECORDS SUMMARY | 2021-09-05 08:01 | XMS_ITS | Encounter Summary ---
:1945 Author Organization [facility] Address [address] [place] [address] Care Team Providers Name Role Phone Unavailable Primary Care Provider Unavailable Encounter Details Date Type Department Care Team Description 02/07/2013 Hospital Encounter [facility] Nicki Holt, MAL, C.N.P., D.N.P. [address] [place], [place] [address] (Wo rk) Social History [...] by mouth daily. Take 0 with food ZOZI heart health. documented as of this encounter Miscellaneous Notes Miscellaneous - Nicki Holt, D.N.P., C.N.P. - 02/07/2013 12:29 PM ASSOCIATE PROFESSOR OF AUTOMATION Normal Results Letter 07 February 2013 ARCHIE BAZAN [address] [place] [id number] Dear ARCHIE ELIDASTEVEN, As we discussed, your blood sugars are high, but great news.. your cholesterols are great! Stay on the simvastain and watch your sweet tooth!!! You continue to have blood in your urine, but as we discussed, we will check this in addition to your thyroid level in 6 weeks. Hopefully, by increasing your thyroid hormone (levothyroxine) we will see your thyroid numbers come down to normal range! Please follow up with us as we discussed during your visit or sooner if you have any concerns. If you have questions or concerns, please do not hesitate to call our office. Result Name Current Result Previous Result Normal Range UA Color Yellow 02/07/2013 Yellow 10/21/2012 Yellow 09/14/2012 Yellow 09/02/2012 Yellow - UA Spec Grav 1.020 02/07/2013 1.025 10/21/2012 1.020 09/14/2012 1.020 09/02/2012 1.000 - 1.030 UA pH 5.5 02/07/2013 5.5 10/21/2012 5.5 09/14/2012 5.5 09/02/2012 5.0 - 8.0 UA Protein Negative 02/07/2013 Negative 10/21/2012 Negative 09/14/2012 Negative 09/02/2012 Negative - UA Glucose Negative 02/07/2013 Negative 10/21/2012 Negative 09/14/2012 Negative 09/02/2012 Negative - UA Ketones Negative 02/07/2013 Negative 10/21/2012 Negative 09/14/2012 Negative 09/02/2012 Negative - UA Bili Negative 02/07/2013 1+ 10/21/2012 Negative 09/14/2012 Negative 09/02/2012 Negative - UA Urobilinogen 0.2 02/07/2013 0.2 10/21/2012 0.2 09/14/2012 0.2 09/02/2012 UA Blood 1+ 02/07/2013 Trace-intact 10/21/2012 Negative 09/14/2012 Trace- lysed 09/02/2012 Negative - UA Nitrite Negative 02/07/2013 Negative 10/21/2012 Negative 09/14/2012 Negative 09/02/2012 Negative - UA Leuk Est 2+ 02/07/2013 2+ 10/21/2012 1+ 09/14/2012 2+ 09/02/2012 Negative - UA WBC 4-10 02/07/2013 51-100 10/21/2012 1-3 09/14/2012 5-10 09/02/2012 UA RBC 0-2 02/07/2013 3-10 10/21/2012 0-2 09/14/2012 0-2 09/02/2012 0-2 - UA Bacteria Few 02/07/2013 Few 10/21/2012 Few 09/14/2012 Moderate 09/02/2012 UA Appear bl Clear 02/07/2013 Clear 10/21/2012 Clear 09/14/2012 Clear 09/02/2012 Clear - UA Epi Occasional 02/07/2013 Many 10/21/2012 Few 09/14/2012 Occasional 09/02/2012 ALT (U/L) (H) 42 02/07/2013 17 11/16/2012 18 03/22/2012 15 - 37 Cholesterol (mg/dL) 160 02/07/2013 (H) 218 10/21/2012 124 06/15/2012 (H) 208 03/09/2012 0 - 200 Trig (mg/dL) 119 02/07/2013 126 10/21/2012 107 06/15/2012 (H) 319 03/09/2012 9 - 150 HDL (mg/dL) 56 02/07/2013 50 10/21/2012 54 06/15/2012 57 03/09/2012 35 - 60 LDL Calculated (mg/dL) (L) 80 02/07/2013 (H) 142 10/21/2012 (L) 49 06/15/2012 (L) 87 03/09/2012 100 - 129 Chol/HDL Ratio 3 02/07/2013 4 10/21/2012 2 06/15/2012 4 03/09/2012 Hgb A1c (%) (H) 7.46 02/07/2013 (H) 6.46 10/21/2012 (H) 6.87 09/14/2012 (H) 6.96 06/15/2012 4.00 - 6.00 TSH (mcIU/mL) (H) 6.49 02/07/2013 4.06 12/30/2012 (H) 5.55 10/21/2012 4.87 04/22/2012 0.30 - 5.00 Sincerely, NICKI HOLT [facility] [place] [address] Electronic Signature Electronically Signed By: NICKI HOLT DNP, RIA On: 07 February 2013 This document has images extracted. Source: [facility] POWERCHART Document Id: [id number] Electronically signed by Conversion, [facility] Movie Critic [id number] at 07/16/2016 10:59 PM CDT documented in this encounter Plan of Treatment Not on filedocumented as of this encounter Procedures Procedure Name Priority Date/Time Associated Comments Diagnosis URINALYSIS, ROUTINE Routine 02/07/2013 9:24 Resu lts for this AM ASSOCIATE PROFESSOR OF AUTOMATION procedure are i n the results section. URINE MICROSCOPIC Routine 02/07/2013 9:24 Result s for this AM ASSOCIATE PROFESSOR OF AUTOMATION procedure are i n the results section. LIPID PANEL, S Routine 02/07/2013 9:21 Results f or this AM ASSOCIATE PROFESSOR OF AUTOMATION procedure are i n the results section. ALANINE AMINOTRANSFERASE Routine 02/07/2013 9:21 Results for this (ALT), S/P AM ASSOCIATE PROFESSOR OF AUTOMATION procedure are i n the results section. THYROID-STIMULATING Routine 02/07/2013 9:21 Resu lts for this HORMONE-SENSITIVE AM ASSOCIATE PROFESSOR OF AUTOMATION procedure are in (S-TSH) the results section. HEMOGLOBIN A1C, B Routine 02/07/2013 9:21 Result s for this AM ASSOCIATE PROFESSOR OF AUTOMATION procedure are i n the results section. documented in this encounter Results Urine Microscopic (02/07/2013 9:24 AM ASSOCIATE PROFESSOR OF AUTOMATION) [facility] Method Time Signature HXUr WBC 4-10 POWERCHART Red Blood Cell 0-2 0 - 2 POWERCHART Clump, Urine HXUr Bacteria Few POWERCHART HXUr Epithelial Occasional POWERCHART Comment: squamous Specimen Anatomical Collection Method Collection Time Receive d Time (Source) Location / / Volume Laterality Urine 02/07/2013 9:24 02/07/2013 AM ASSOCIATE PROFESSOR OF AUTOMATION 9:24 AM ASSOCIATE PROFESSOR OF AUTOMATION Nicki Holt APRN, C.N.P., D.N.P. LAB URINE DESI MONGE Performing Organization Address City/State/ZIP Code Phon e Number POWERCHART Urinalysis, Routine (02/07/2013 9:24 AM ASSOCIATE PROFESSOR OF AUTOMATION) [facility] Method Time Signature HXUr Color Yellow Yellow POWERCHART Appearance Clear Clear POWERCHART Glucose Negative Negative POWERCHART HXBILIRUBIN Negative Negative POWERCHART Ketones, QL(U) Negative Negative POWERCHART Specific 1.020 1.000 - POWERCHART [place], POCT, U 1.030 pH, POCT, Urine 5.5 5.0 - 8.0 POWERCHART Protein, Ur, Dip Negative Negative POWERCHART Urobilinogen 0.2 POWERCHART HXNITRITE Negative Negative POWERCHART HXBLOOD 1+ Negative POWERCHART Leukocyte 2+ Negative POWERCHART Esterase Source Clean Void POWERCHART Urine Specimen (Source) Anatomical Collection Method Collection Time Re ceived Time Location / / Volume Laterality Urine 02/07/2013 9:24 AM ASSOCIATE PROFESSOR OF AUTOMATION Nicki Holt APRN C.N.P., D.N.P. LAB URINE ORDE RABLES Performing Organization Address City/State/ZIP Code Phon e Number POWERCHART (ABNORMAL) Thyroid-Stimulating Hormone-Sensitive (s-TSH) (02/07/2013 9:21 AM ASSOCIATE PROFESSOR OF AUTOMATION) Analysis Performed At Patho logist Time Signature TSH 6.49 (H) 0.30 - 5.00 POWERCHART (Thyrotropin) MCIUML Specimen (Source) Anatomical Collection Method Collection Time Re ceived Time Location / / Volume Laterality Blood 02/07/2013 9:21 AM ASSOCIATE PROFESSOR OF AUTOMATION Nicki Holt APRN C.N.P., D.N.P. LAB BLOOD ADD- ON Performing Organization Address City/[facility] Code Phon e Number POWERCHART (ABNORMAL) ALT (Alanine Aminotransferase) (02/07/2013 9:21 AM ASSOCIATE PROFESSOR OF AUTOMATION) P athologist Signature Alanine 42 (H) 15 - 37 UL POWERCHART Amniotransferas e, LD Specimen (Source) Anatomical Collection Method Collection Time Re ceived Time Location / / Volume Laterality Blood 02/07/2013 9:21 AM ASSOCIATE PROFESSOR OF AUTOMATION Nicki Holt APRN, C.N.P., D.N.P. LAB BLOOD ADD- ON Performing Organization Address City/[facility] Phon e Number POWERCHART (ABNORMAL) Lipid Panel (02/07/2013 9:21 AM ASSOCIATE PROFESSOR OF AUTOMATION) P athologist Signature Cholesterol, 160 0 - 200 POWERCHART Total MGDL Comment: <200 mg/dL Desirable 200-239 mg/dL Borderline High >239 mg/dL High HX HDL 56 35 - 60 MGDL POWERCHART Comment: > 60 mg/dL Desirable 40 ? 60 mg/dL Low Risk <40 mg/dL Undesirable Triglycerides 119 9 - 150 MGDL POWERCHART Comment: <150 mg/dL Desirable 150-199 mg/dL Borderline High 200-499 mg/dL High > 499 Very High Calculated LDL 80 (L) 100 - 129 MGDL POWERCHART Total Cholesterol/HDL Ratio 3 PO WERCHART Specimen (Source) Anatomical Collection Method Collection Time Re ceived Time Location / / Volume Laterality Blood 02/07/2013 9:21 AM ASSOCIATE PROFESSOR OF AUTOMATION Nicki Holt APRN, C.N.P., D.N.P. LAB BLOOD ADD- ON Performing Organization Address City/State/ZIP Code Phon e Number POWERCHART (ABNORMAL) Hemoglobin A1c (02/07/2013 9:21 AM ASSOCIATE PROFESSOR OF AUTOMATION) Analysis Performed At [facility] Time Signature Hemoglobin A1c, 7.46 (H) 4.00 - POWERCHART B 6.00 Specimen (Source) Anatomical Collection Method Collection Time Re ceived Time Location / / Volume Laterality Blood 02/07/2013 9:21 AM ASSOCIATE PROFESSOR OF AUTOMATION Nicki Holt APRN, C.N.P., D.N.P. LAB BLOOD ADD- ON Performing Organization Address City/State/ZIP Code Phon e Number POWERCHART documented in this encounter Visit Diagnoses Not on filedocumented in this encounter
--- OUTSIDE RECORDS SUMMARY | 2021-09-05 08:01 | XMS_ITS | Encounter Summary ---
:1945 Author Organization [facility] Address [address] [place] [address] Care Team Providers Name Role Phone Unavailable Primary Care Provider Unavailable Encounter Details Date Type Department Care Team Description 12/30/2012 Hospital Encounter HX [facility] [place] Nicki Holt, MAL, C.N.P., D. N.P. [address] [place] [address] (Wo rk) Social History Tobacco [...] Sign Reading Time Taken Comments Blood Pressure 130/68 12/30/2012 10:15 AM TREATER HELPER Pulse 72 12/30/2012 10:15 AM TREATER HELPER Temperature - - Respiratory Rate 16 12/30/2012 10:15 AM TREATER HELPER Oxygen Saturation - - Inhaled Oxygen Concentration - - Weight 82.4 kg (181 lb 10.5 oz) 12/30/2012 10:15 AM TREATER HELPER Height 162.3 cm (5' 3.9) 12/30/2012 10:15 AM TREATER HELPER Body Mass Index 31.28 12/30/2012 10:15 AM TREATER HELPER documented in this encounter Medications at Time of Discharge Medication Sig Dispensed Refills Start Date End Date ASPIRIN ORAL Take 81 mg by mouth daily. Take 0 with food for heart health. documented as of this encounter Progress Notes Nicki Holt D.N.P., CJairoNJairoP. - 12/30/2012 10:02 AM CST [id number] CHIEF COMPLAINT/REASON FOR VISIT Skin lesion underneath the left breast. HISTORY OF PRESENT ILLNESS The patient is a 67-year-old female that presents to the clinic with today to follow up on alesion just under her left breast that has been present for approximately the past year duration. She indicates that this lesion has not changed in character but wanted to have it evaluated today. She indicates it is not painful. She indicates that she is not otherwise having any other concerns or issues. She does have a history of hypothyroidism which currently she is taking levothyroxine 50 mcgby mouth daily in which she has been tolerating well and came in today for a TSH as well. PAST MEDICAL/SURGICAL HISTORY Reviewed. Please see chart. FAMILY HISTORY Reviewed. Please see chart. MEDICATIONS Reviewed. Please see chart. ALLERGIES Reviewed. Please see chart. PHYSICAL EXAMINATION GENERAL: The patient is an alert, well-nourished, 67-year-old female that appears to be in no acutedistress. HEAD: Normocephalic, atraumatic. SKIN: Lesion just under the left breast is noted to be approximately 2 cm in diameter in which borders are well-demarcated and is characteristic more of a seborrheic keratosis in which this is fleshy in color, mildly raised and dry, though borders are well-demarcated. This lesion is symmetrical. LABS: TSH was noted to be 4.06. IMPRESSION/REPORT/PLAN 1. Seborrheic keratosis. 2. Hypothyroidism. PLAN: 1. Seborrheic keratosis: Presently, at this time, I discussed the overall findings at length with the patient. Patient was given information from the [facility] [facility] [employer] site regarding seborrheickeratosis in which I indicated we will just continue monitoring this. Patient felt very comfortablewith this treatment plan. 2. Hypothyroidism: Presently, at this time, I indicated to the patient her TSH is under adequate control in which we will continue monitoring with a repeat TSH in 6 months duration given the fact that she has just recently required a change to her weight on her levothyroxine dosage. Patient stated she understands this plan. She otherwise denied having any further questions or concerns. We will plan on contacting her in 6 months' time with an update on her laboratory results. Patient denied having any further questions or concerns. Patient ambulated out of the clinic in no acute distress. PATIENT EDUCATION: Ready to learn No apparent learning barriers were identified Learning preferences include listening Explained diagnosis and treatment plan Patient/Child/Caregiver expressed understanding of the content Nicki Holt D.N.P./Juan Electronically Signed By: NICKI HOLT DNP, FNP On: 12/31/2012 12:33 PM Source: [facility] MHSDOLBEYNONRADSYS Document Id: [id number] TER HELPER documented in this encounter Miscellaneous Notes Miscellaneous - Nicki Holt D.N.P., C.N.P. - 12/30/2012 12:19 PM TREATER HELPER Ambulatory Patient Summary [address] [address] Visit Information Name: ARCHIE BAZAN [facility] Number: [id number] Current Date: 12/30/2012 12:19:37 Physicians Attending Provider: NICKI HOLT DNP, FNP [...] you have problems taking your medications. Medication/Strength Dose Route Frequency Indications/Special Instructions/Comments/Notes levothyroxine (levothyroxine 50 mcg (0.05 mg) oral tablet) 50 mcg Oral once a day Take 30-45 minutesbefore meal or other medications simvastatin (simvastatin 10 mg oral tablet) 10 mg Oral once a day (at bedtime) Take for high cholesterol. aspirin (aspirin 81 mg oral tablet) 81 mg Oral once a day Take with food for heart health. alprazolam (Xanax 0.5 mg oral tablet) 0.5 mg Oral every 8 hours as needed for Anxiety Take for anxiety. clobetasol topical (clobetasol topical 0.05% solution) 1 shauna Topical two times a day as needed for Rash Attention: If you have any medications at home that are not on this list, DO NOT take them until youcontact your provider for clarification. Your Allergies & Intolerances Substance Reaction Symptoms [...] data. Your Upcoming Appointments Date Time Location Reason Provider 01/03/2013 12:45 [facility] PT/OT RT ROTATOR CUFF Ziyad Childs 01/20/2013 09:30 [facility] Family Med f/u [facility] [place] Attention: Contact your local Clinic if further appointment detail needed. Your Goals/Additional instructions: Source: [facility] POWERCHART Document Id: [id number] TER HELPER Miscellaneous - Nicki Holt D.N.P., C.N.P. - 12/30/2012 12:19 PM TREATER HELPER Ambulatory Depart Summary [address] [address] Visit Information Name: ARCHIE BAZAN [facility] Number: [id number] Visit Date: 12/30/2012 12:19:36 Attending Provider: NICKI HOLT DNP, FNP Primary Care Provider: NICKI HOLT DNP, FNP ARCHIE BAZAN has been given the following list of medications: Your Medications It is important to take your medications as directed. Use a pill box or chart to help remind you to take your medications. Please let your doctor or nurse know if you have problems taking your medications. Medication/Strength Dose Route Frequency Indications/Special Instructions/Comments/Notes levothyroxine (levothyroxine 50 mcg (0.05 mg) oral tablet) 50 mcg Oral once a day Take 30-45 minutesbefore meal or other medications simvastatin (simvastatin 10 mg oral tablet) 10 mg Oral once a day (at bedtime) Take for high cholesterol. aspirin (aspirin 81 mg oral tablet) 81 mg Oral once a day Take with food for heart health. alprazolam (Xanax 0.5 mg oral tablet) 0.5 mg Oral every 8 hours as needed for Anxiety Take for anxiety. clobetasol topical (clobetasol topical 0.05% solution) 1 shauna Topical two times a day as needed for Rash Attention: If you have any medications at home that are not on this list, DO NOT take them until youcontact your provider for clarification. Additional Information: Source: [facility] POWERCHART Document Id: [id number] TER HELPER Miscellaneous - Vitaliy Darnell LJairoP.N. - 12/30/2012 10:15 AM CST Adult Knitting Tester Intake/History Adult Knitting Tester Intake/History Entered On: 12/30/2012 10:19 TREATER HELPER Performed On: 12/30/2012 10:15 TREATER HELPER by VITALIY DARNELL LPN Intake Chief Complaint : Spot under left breast that has been there for year, Temperature Core : 35.8 DegC(Converted to: 96.4 DegF) (LOW) Peripheral Pulse Rate : 72 /min Respiratory Rate : 16 /min Heart Rhythm : Regular Systolic Blood Pressure : 130 mmHg Diastolic Blood Pressure : 68 mmHg NIBP Mean : 89 mmHg BP Location : Left upper extremity Blood Pressure Cuff Size : Regular Height : 162.3 cm(Converted to: 5 ft 4 inch(es), 63.90 inch(es)) Actual Weight : 82.4 kg(Converted to: 181 lb 11 oz) Weight Source : Standing scale Dosing Weight Clinic : 82.4 kg Clinic BSA : 1.93 Body Mass Index : 31.28 kg/m2 VITALIY DARNELL [facility] - 12/30/2012 10:15 TREATER HELPER General Info Information Given By : Patient Languages : Anguill[place] VITALIY DARNELL [facility] 12/30/2012 10:15 TREATER HELPER Subjective Pain Symptoms : No VITALIY DARNELL [facility] - 12/30/2012 10:15 TREATER HELPER Dependent Habits Tobacco Use/Currently Using : No Tobacco Use/Last 12 months : No Tobacco Use/Advised to Quit : No Exposure to Tobacco Smoke : Care provider denies smoking in home Smoking Status : Never smoker VITALIY DARNELL [facility] - 12/30/2012 10:15 TREATER HELPER Tobacco Use Grid Last Use : [facility] 12/30/2012 10:15 TREATER HELPER Alcohol Use : No VITALIY DARNELL [facility] 12/30/2012 10:15 TREATER HELPER Caffeine Use Grid Caffeine Use : Current Type : Tea Frequency : Occasionally VITALIY DARNELL [facility] - 12/30/2012 10:15 TREATER HELPER Recreational Drug Use Grid Drug Use : None VITALIY DARNELL [facility] 12/30/2012 10:15 TREATER HELPER Source: [facility] DataheroCHART Document Id: [id number] TREATER HELPER!41 TER HELPER documented in this encounter Plan of Treatment Not on filedocumented as of this encounter Visit Diagnoses Not on filedocumented in this encounter
--- OUTSIDE RECORDS SUMMARY | 2021-09-05 08:01 | XMS_ITS | Encounter Summary ---
:1945 Author Organization [facility] Address [address] [place] [address] Care Team Providers Name Role Phone Unavailable Primary Care Provider Unavailable Encounter Details Date Type Department Care Team Description 02/24/2013 Hospital Encounter HX [facility] Nicki Sosa, MAL, C.N.P., D. N.P. [address] [place] [address] (Wo rk) Social History Tobacco [...] Progress Notes Conversion, Historical Provider Ser - 02/24/2013 10:26 AM CST [id number] HEALTH & WELLNESS COACHING Referring Physician Nicki Anthony, Maritza.N.P./NereidaN.P Patient was seen in [facility] on 02/24/2013 for follow-up wellness coaching visit around the area of weight loss and Diabetes management. CHIEF COMPLAINT/REASON FOR VISIT Follow-up wellness coaching visit. OBJECTIVE INFORMATION Her weight is at 81.4 kg today which is at 179.08 pounds. This is down 2.86 pounds since last session. SESSION OVERVIEW Today in our meeting Marcial discussed what she held responsible for her 2.86- pound weight loss over the last week and a half. She discussed that she had started to put on weight and just decided that she did not want to go down that road again as she worked so hard to get healthy. She also started to make better choices with her foods, watching her sugars and carbohydrates amounts, also her food ratio at meals and making healthier choices overall. She also shared that she has been taking in smaller portion sizes and only having 1 portion versus seconds. In addition, she has been using tea as a way of a snack in the afternoon instead of having food. Her blood sugar A1c did go up a little last time she had it checked but her cholesterol is still good. Her primary care physician, Nicki Anthony said that she was not going to put on medication butdoes want her to continue on to eat healthy and take care of herself. She is very motivated to getting back into a healthy routine again as she has been encountering a little bit of struggle with her healing of her shoulder which she had surgery on. She did see her surgeon and is going to see him inabout 2 months to check in and she is going to continue on with doing physical therapy strengtheningexercises every day. NEW GOALS SET: Goal #1: Menu planning. We will continue to plan out her menu for the week in making healthy options and set up snacks and forecast any kind of possible obstacles that would get in the way of her losing weight and eating healthy. FOLLOWUP PLAN We will see next week and continue to move forward. Annie Pérez/rodrick Electronically Signed By: ANNIE PÉREZ On: 02/25/2013 11:07 AM Source: [facility] MHSDOLBEYNPERRY Document Id: [id number] documented in this encounter Plan of Treatment Not on filedocumented as of this encounter Visit Diagnoses Not on filedocumented in this encounter
--- OUTSIDE RECORDS SUMMARY | 2021-09-05 08:02 | XMS_ITS | Encounter Summary ---
:1945 Author Organization [facility] Address [address] [place] [address] Care Team Providers Name Role Phone Unavailable Primary Care Provider Unavailable Encounter Details Date Type Department Care Team Description 08/20/2012 Hospital Encounter [facility] [place] Nicki Anthony, MAL, C.N.P., D. N.P. [address] [place] [address] (Wo rk) Social History Tobacco [...] Progress Notes Conversion, Historical Provider Ser - 08/20/2012 8:55 AM CDT [id number] HEALTH AND WELLNESS COACHING Patient was seen at [facility] in [place] on 08/20/2012 for follow-up wellness coaching visit around diabetes and weight loss. CHIEF COMPLAINT/REASON FOR VISIT Follow-up wellness visit. SESSION REVIEW The patient is down another 1.5 pounds this week. She attributes this loss in weight to not having any refined sugars, carbs or sweets. She has been eating healthy choices and substituting higher sodium foods for lower ones such as using a turkey hot dog versus a regular pork hot dog. She also has made the connection that when she writes down her food choices that she is more aware of what she is eating and did not realize that sweets were an issue for her until she started to create a food journal. She also reports being active doing some kind of movement every day and doing her walking routine at least every other day. She is heading off to the cabin today with her family for the rest of the weekend and will continue to be active and making healthy food choices well over the next week. PHYSICAL EXAMINATION She weighed in at 81.3 kg which is 178.86 pounds. FOLLOW-UP PLAN We will see Marcial weekly for a half an hour for the next few months. She recently had a follow-up visit with her primary, Nicki Anthony, who told her that she would be able to get completely off all of her medications with another 10 pound weight loss. The patient is extremely excited and motivated. Annie Pérez/[facility] Electronically Signed By: ANNIE PÉREZ On: 08/23/2012 10:34 AM Source: [facility] MHSDOLBEYNONRADSYS Document Id: [id number] documented in this encounter Miscellaneous Notes Miscellaneous - Macy Fraga, RJairoN. - 08/23/2012 10:26 AM CDT Prior Auth- Metformin From: MACY CALDERA RN Sent: 08/23/2012 10:26:09 CDT Subject: Prior Auth- Metformin Prior Auth for Metformin HCL ER 1000mg approved by [employer] 08/16/12- 08/16/13. [place] notified, pt notified. Source: [facility] POWERCHART Document Id: [id number] Electronically signed by [facility], [facility] [employer] Consultant [id number] at 07/16/2016 1:01 AM CDT documented in this encounter Plan of Treatment Not on filedocumented as of this encounter Visit Diagnoses Not on filedocumented in this encounter
--- OUTSIDE RECORDS SUMMARY | 2021-09-05 08:02 | XMS_ITS | Encounter Summary ---
:1945 Author Organization [facility] Address [address] [place] [address] Care Team Providers Name Role Phone Unavailable Primary Care Provider Unavailable Encounter Details Date Type Department Care Team Description 07/08/2012 Hospital Encounter [facility]X [facility] [place] Nicki Anthony, MAL, C.N.P., D. N.P. [address] [place] [address] (Wo rk) Social History Tobacco [...] by mouth daily. Take 0 with food [employer] health. documented as of this encounter Progress Notes Conversion, Historical Provider Ser - 07/08/2012 8:52 AM CDT [id number] CHIEF COMPLAINT/REASON FOR VISIT Follow-up wellness coaching visit around the area of Diabetes management. GOAL REVIEW Marcial was 100% successful in achieving her goal of making a menu plan for the last 2 weeks and alsocreating even a backup menu plan for times that she cannot follow through with the initial item thatshe would have something in stock and ready to go. Next goal was 100% successful in finding healthy alternatives and options. She found that doing hershopping she was able to find a turkey as an option for cheaper and also as a healthy substitute forred meat. Her exercise this week, she was 40% successful. Her water and eating healthy snacks was 50% successful. OBJECTIVE INFORMATION Her weight was 83.6 kg which is 183.92 pounds. This is up to 2.42 pounds from last week from last session. SESSION SUMMARY Today we discussed what worked and what was successful for Marcial and also what was getting in the way of her moving forward with her ultimate goal of weight loss. She identified several areas that were in the way for her, one being sugar snacking between meals and before bed. Also, having company over. We discussed how these certain areas could be a setback for her and how we could plan around these obstacles to create her successful resolves in moving forward with creating a healthy blood sugar balance and also decreasing refined sugars and carbohydrates along with maintaining a normal BMI and weight to range. She did identify some successes along the week with her menu planning and resourceful shopping experiences. She also said that she decided to get grass fed eggs from a neighbor and is excited about using those as a healthy snack with something that has a lot of protein and natural fat. NEW GOALS SET 1. She created a goal of not having any snacking for the next 2 weeks. She wants to cut out her inbetween meal snacking and her after dinner snacks and just stick with her general meals. 2. Would be to continue on with her walking program and she would do this by getting a mile of walking in daily and that would be 5 days a week giving her 2 days for rest and relaxation. 3. Would be weight loss goal of 2 pounds for the next week. In addition, she will continue to plan for her menu and also was going out of town this weekend and is going to plan to move and do more activity versus snacking in social situations. FOLLOW-UP PLAN We will see patient in 1 to 2 weeks and continue to monitor her progress. Annie Miramontes/rodrick Electronically Signed By: ANNIE MIRAMONTES On: 07/15/2012 12:02 PM Source: [facility] MHSDOLBEYNONRADSYS Document Id: [id number] documented in this encounter Plan of Treatment Not on filedocumented as of this encounter Visit Diagnoses Not on filedocumented in this encounter
--- OUTSIDE RECORDS SUMMARY | 2021-09-05 08:02 | XMS_ITS | Encounter Summary ---
:1945 Author Organization [facility] Address [address] [place] [address] Care Team Providers Name Role Phone Unavailable Primary Care Provider Unavailable Encounter Details Date Type Department Care Team Description 05/20/2012 Hospital Encounter HX [facility] Nicki Anthony, MAL, C.N.P., D. N.P. [address] [place] [address] (Wo rk) Social History Tobacco [...] Progress Notes Conversion, Historical Provider Ser - 05/20/2012 3:43 PM CDT [id number] HEALTH AND WELLNESS COACHING REFERRING PHYSICIAN: Nicki Anthony, D.N.P./F.N.P. CHIEF COMPLAINT/REASON FOR VISIT The patient was seen at the [facility] in [place] on 05/20/2012 for a follow-up visit in regard to her wellness coaching around the areas of diabetes management and also weight loss. GOAL REVIEW 1. She was 100% successful in achieving her relaxation CD goal of listening to it twice a week. 2. She was also 50% successful in walking on the treadmill. She did not do the full amount because she had some pain in her feet this week. 3. Goal of a 1 to 2 pound deficit in weight loss was unsuccessful. She actually gained 0.88 poundthis week. OBJECTIVE DATA The patient indicates she has had a little bit of anxiety. She has been worrying a bit about her daughter but did not have a panic attack, and she attributes this to doing the relaxation CD. Her granddaughter is also having some surgery and she reported feeling a little bit anxious more this week and out of sorts. Weight this week is 85.5 kg, which is 188.49 pounds, which is an increase of 0.88 pounds in her weight this week. SESSION SUMMARY We discussed the patient's anxiety level and what has been going on to not keep her on her goal and plan and what she could do to switch things around for the next week. We identified several obstacles. 1) She indicated that there was company in town and that she did not have a plan for options of her own food choices. 2) It was and the holidays so next timeshe is thinking about planning again another healthy option for her own meal choices. She also ate some nuts with salt which she thought might have been part of it. In addition to that, she hurt her foot so had not been able to accomplish half of her walking time on the treadmill that she normally does. Also, she indicated that she was not measuring out how much she was having for serving where urbano was doing before on the previous weeks. We just discussed a strategy for the next couple weeks a nd what she could move forward to do to become successful. NEW GOALS SET 1. Meal planning. She is going to create a healthy meal plan setup on Thursday or Thursday. She is10/10 level of importance for this goal and a 9/10 confidence that she will be able to complete this. 2. Exercise. She will be doing it 5 days a week on the treadmill equaling 1 mile, or around the house if it is too muddy to get to the treadmill up in her deck area, or the bike. She is 10/10 ratedthis on a level of importance and a 9/10 level of confidence. 3. She will listen to the relaxation CD 3 times a week. She indicates this is a 10/10 of importance and a 9/10 confident that she will be able to complete this. FOLLOW-UP PLAN We will plan to see the patient in the next 1 to 2 weeks and continue on with our sessions. Annie Miramontes/shi Electronically Signed By: ANNIE MIRAMONTES On: 06/14/2012 11:54 AM Source: [facility] MHSDOLBEYNONRADSYS Document Id: [id number] documented in this encounter Plan of Treatment Not on filedocumented as of this encounter Visit Diagnoses Not on filedocumented in this encounter
--- OUTSIDE RECORDS SUMMARY | 2021-09-05 08:02 | XMS_ITS | Encounter Summary ---
:1945 Author Organization [facility] Address [address] [place] [address] Care Team Providers Name Role Phone Unavailable Primary Care Provider Unavailable Encounter Details Date Type Department Care Team Description 08/31/2012 Hospital Encounter HX NO MAPPING Nicki Anthony, MAL, C.N.P., D.N.P. [address] [place], [place] [phone] (Wo rk) Social History [...]
--- OUTSIDE RECORDS SUMMARY | 2021-09-05 08:02 | XMS_ITS | Encounter Summary ---
:1945 Author Organization [facility] Address [address] [place] [address] Care Team Providers Name Role Phone Unavailable Primary Care Provider Unavailable Encounter Details Date Type Department Care Team Description 09/23/2012 Hospital Encounter HX [facility] Nicki Anthony, MAL, C.N.P., D. N.P. [address] [place] [address] (Wo rk) Social History Tobacco [...] Progress Notes Conversion, Historical Provider Ser - 09/23/2012 8:47 AM CDT [id number] HEALTH & WELLNESS COACHING Patient was seen on 09/23/2012 for a follow-up wellness coaching visit around the area of diabetes and weight loss. CHIEF COMPLAINT/REASON FOR VISIT Follow-up wellness coaching visit. SESSION REVIEW Objective Information: Her weight is at 81.0 kg which is at 178.2 pounds which is down 1.26 pounds since our last session. Marcial reports having baked a blueberry pie the last week, but also did not partake in having any of it, just did so for her . She also noted that she has been exercising and walking. Also has been busy my around the house doing pickles and baking. She wants to really continue on a different track and is ready for another 15 pounds of weight loss. She wants to quit the sweets and salts and processed foods. Now she has her also looking at the ingredients on items when they have been shopping together. In addition, she would like to get off her blood pressure medications and cholesterol as well along with the metformin. She also is interested in theidea of relaxing, walking and then also taking it up a bit as far as the next level of weight loss of the next 15 pounds. NEWS GOALS SET Would like to continue on with this 1.5-pound weight loss. In addition, would like to do another 15pounds total for her weight loss goal plan. FOLLOWUP PLAN We will continue to meet every 1 to 2 weeks moving forward towards her new wellness goal. Annie Pérez/arnol cc: Nicki Anthony D.N.P./Stanislav.N.P Electronically Signed By: ANNIE PÉREZ On: 10/12/2012 02:34 PM Source: [facility] PRESTONSDOLSTEVENYNPERRY Document Id: [id number] documented in this encounter Plan of Treatment Not on filedocumented as of this encounter Visit Diagnoses Not on filedocumented in this encounter
--- OUTSIDE RECORDS SUMMARY | 2021-09-05 08:02 | XMS_ITS | Encounter Summary ---
:1945 Author Organization [facility] Address [address] [place] [address] Care Team Providers Name Role Phone Unavailable Primary Care Provider Unavailable Encounter Details Date Type Department Care Team Description 06/15/2012 Hospital Encounter HX [facility] Nicki Holt, MAL, C.N.P., D.N.P. [address] [place], [place] [phone] (Wo rk) Social History [...] by mouth daily. Take 0 with food [employer] heart health. documented as of this encounter Miscellaneous Notes Miscellaneous - Nicki Holt, D.N.P., C.N.P. - 06/18/2012 12:35 PM CDT Normal Results Letter 18 Jun 2012 ARCHIE BAZAN [address] [place] [address] [id number] Dear ARCHIE BAZAN, I am pleased to report that your results from the following diagnostic test(s) are almost normal!!!! (Your cholesterols are EXCELLENT!!!) Please follow up with us as we discussed during your visit or sooner if you have any concerns. If you have questions or concerns, please do not hesitate to call our office. Result Name Current Result Previous Result Normal Range U Albumin (mg/L) (L) <12.0 06/15/2012 (L) <12.0 03/11/2012 12.0 - 30.0 U Creatinine (mg/dL) 86.8 06/15/2012 57.2 03/11/2012 30.0 - 125.0 U Alb/Creatinine Ratio (mg/gm) <14 06/15/2012 <21 03/11/2012 0 - 25 Cholesterol (mg/dL) 124 06/15/2012 (H) 208 03/09/2012 0 - 200 Trig (mg/dL) 107 06/15/2012 (H) 319 03/09/2012 9 - 150 HDL (mg/dL) 54 06/15/2012 57 03/09/2012 35 - 60 LDL Calculated (mg/dL) (L) 49 06/15/2012 (L) 87 03/09/2012 100 - 129 Chol/HDL Ratio 2 06/15/2012 4 03/09/2012 Hgb A1c (%) (H) 6.96 06/15/2012 (H) 7.45 03/09/2012 (H) 7.46 12/05/2011 4.00 - 6.00 Sincerely, NICKI HOLT [address] [id number] Electronic Signature Electronically Signed By: NICKI HOLT DNP, FNP On: 18 Jun 2012 This document has images extracted. Source: [facility] POWERCHART Document Id: [id number] Electronically signed by Sae [facility] [employer] Construction Worker [id number] at 07/16/2016 11:15 AM CDT documented in this encounter Plan of Treatment Not on filedocumented as of this encounter Procedures Procedure Name Priority Date/Time Associated Diagnosis Comme nts ALBUMIN, RANDOM, U Routine 06/15/2012 8:10 AM Re sults for this CDT procedure are i n the results section. LIPID PANEL, S Routine 06/15/2012 8:05 AM Result s for this CDT procedure are i n the results section. HEMOGLOBIN A1C, B Routine 06/15/2012 8:05 AM Res ults for this CDT procedure are i n the results section. documented in this encounter Results (ABNORMAL) Microalbumin, Random, Urine (06/15/2012 8:10 AM CDT) [facility] At [facility] Time Signature Creatinine, 86.8 30.0 - POWERCHART Random, U 125.0 MGDL HXU Albumin % <12.0 (L) 12.0 - POWERCHART 30.0 MGL Albumin/Creati <14 0 - 25 POWERCHART nine Ratio MGGM Specimen (Source) Anatomical Collection Method Collection Time Re ceived Time Location / / Volume Laterality Urine 06/15/2012 8:10 AM CDT Nicki Holt APRN, C.N.P., D.N.P. LAB URINE ORDE RABLES Performing Organization Address City/State/ZIP Code Phon e Number POWERCHART (ABNORMAL) Lipid Panel (06/15/2012 8:05 AM CDT) P athologist Signature Cholesterol, 124 0 - 200 POWERCHART Total MGDL Comment: <200 mg/dL Desirable 200-239 mg/dL Borderline High >239 mg/dL High HX HDL 54 35 - 60 MGDL POWERCHART Comment: > 60 mg/dL Desirable 40 ? 60 mg/dL Low Risk <40 mg/dL Undesirable Triglycerides 107 9 - 150 MGDL POWERCHART Comment: <150 mg/dL Desirable 150-199 mg/dL Borderline High 200-499 mg/dL High > 499 Very High Calculated LDL 49 (L) 100 - 129 MGDL POWERCHART Total Cholesterol/HDL Ratio 2 PO WERCHART Specimen (Source) Anatomical Collection Method Collection Time Re ceived Time Location / / Volume Laterality Blood 06/15/2012 8:05 AM CDT Nicki Holt APRN, C.N.P., D.N.P. LAB BLOOD ADD- ON Performing Organization Address City/State/ZIP Code Phon e Number POWERCHART (ABNORMAL) Hemoglobin A1c (06/15/2012 8:05 AM CDT) Analysis Performed At [facility] Time Signature Hemoglobin A1c, 6.96 (H) 4.00 - POWERCHART B 6.00 Specimen (Source) Anatomical Collection Method Collection Time Re ceived Time Location / / Volume Laterality Blood 06/15/2012 8:05 AM CDT Nicki Holt APRN, C.N.P., D.N.P. LAB BLOOD ADD- ON Performing Organization Address City/State/ZIP Code Phon e Number POWERCHART documented in this encounter Visit Diagnoses Not on filedocumented in this encounter
--- OUTSIDE RECORDS SUMMARY | 2021-09-05 08:02 | XMS_ITS | Encounter Summary ---
:1945 Author Organization [facility] Address [address] [place] [address] Care Team Providers Name Role Phone Unavailable Primary Care Provider Unavailable Encounter Details Date Type Department Care Team Description 08/12/2012 Hospital Encounter HX [facility] Nicki Anthony, MAL, C.N.P., D. N.P. [address] [place] [address] (Wo rk) Social History Tobacco [...] Progress Notes Conversion, Historical Provider Ser - 08/12/2012 8:56 AM CDT [id number] HEALTH AND WELLNESS COACHING The patient was seen at [facility] in [place] on 08/12/2012 for a follow-up wellness coaching visit around the area of diabetes and weight loss. CHIEF COMPLAINT/REASON FOR VISIT Follow-up wellness coaching visit. PHYSICAL EXAMINATION Patient weighed in at 82.0 kg, which is 180.4 pounds, which is a weight loss of 3.08 pounds this week. GOAL REVIEW: 1. The patient was 100% successful in achieving a 1-pound weight loss per week. 2. Goal #2 was 100% successful in making better food choices. 3. Goal #3 was 100% successful in keeping sweets and baked goods out of the home. SESSION SUMMARY The patient lost 3.08 pounds this week. She walked several times and also indicated that she increased her time and distance in her walking. She also did more movement with gardening outdoors this week. She also is continuing to see her local chiropractor for shoulder stiffness on her right side around her rotator cuff. She has reached out to [facility] for a massage on her shoulder and will continue to follow-up with that doing alternative healthcare. The patient is interested in losing a total goal of 20 pounds ideally at the weight of 170 pounds. She is going to do this through eating better food choices, eating less portion size and also walkingmore, also using movement when she is hungry and bored rather than eating when she is not actually hungry. We also discussed the frequency of our visits and that we would cut down in frequency to every other week soon. Currently we will keep it at weekly but cut down our session time to 30 minutes instead of an hour. The patient is extremely motivated and happy with her progress this week of the 3-pound weight loss and will continue to move forward with the goal of being completely off of her medication and also diabetes free. FOLLOW-UP PLAN We will see patient weekly for 30 minutes visits ongoing. Annie Pérez/kena Electronically Signed By: ANNIE PÉREZ On: 08/23/2012 10:34 AM Source: [facility] MHSDOLBEYNONRADSYS Document Id: [id number] documented in this encounter Plan of Treatment Not on filedocumented as of this encounter Visit Diagnoses Not on filedocumented in this encounter
--- OUTSIDE RECORDS SUMMARY | 2021-09-05 08:02 | XMS_ITS | Encounter Summary ---
:1945 Author Organization [facility] Address [address] [place] [address] Care Team Providers Name Role Phone Unavailable Primary Care Provider Unavailable Encounter Details Date Type Department Care Team Description 08/31/2012 Hospital Encounter HX [facility] Jackson Mathis M. D. Social History Tobacco Use Types Packs/Day Years [...] Progress Notes Conversion, Historical Provider Ser - 08/31/2012 9:30 AM CDT [id number] Quick Note: Note: These results were ordered by a Referring Physician and have not been reviewed by a physician at [facility] in [place]. FAXED TO VICKEY HOLT RAMIREZ NAZARETH ON 09/02/2012. Source: [facility] Document Id: [id number] documented in this encounter Plan of Treatment Not on filedocumented as of this encounter Visit Diagnoses Not on filedocumented in this encounter
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
--- OUTSIDE RECORDS SUMMARY | 2021-09-05 08:02 | XMS_ITS | Encounter Summary ---
:1945 Author Organization [facility] Address [address] [place] [address] Care Team Providers Name Role Phone Unavailable Primary Care Provider Unavailable Encounter Details Date Type Department Care Team Description 10/21/2012 Hospital Encounter HX [facility] Nicki Holt, MAL, C.N.P., D.N.P. [address] [place], [place] [phone] (Wo rk) Social History [...] by mouth daily. Take 0 with food [employer]. documented as of this encounter Miscellaneous Notes Miscellaneous - Nicki Holt, D.N.P., C.N.P. - 10/29/2012 9:13 AM CDT Results Notification Document Contains Addenda Addendum by PETRA RUSSELL LPN on 29 October 2012 15:36:24 CDT Patient called and updated she will follow new orders in medications and labs she reports that she has no concerns with bladder at this time From: NICKI HOLT DNP, RAILCAR FOREMAN To: DIANA RYAN Justin DAMASCENER; Sent: 10/29/2012 09:13:44 CDT ! Show up: 10/29/2012 14:13:44 [facility] Subject: Results Notification Actions: Note to Nurse Reminder Comments: Diana, can you call Archie and let her know that her thyroid results was just a little high, I did increase her levothyroxine from 25 to 50 mcg daily, we will recheck this in 6 weeks. Also, urine culture was contamination, sis she feeling better?? thank yo Results: Date Result Name Ind Value Ref Range 10/21/2012 09:12 UR % Dysmorphic RBC <=25 % (<=25 - ) 10/21/2012 09:06 TSH (H) 5.55 mcIU/mL (0.30 - 5.00) Source: [facility] POWERCHART Document Id: [id number] Electronically signed by Conversion, [facility] Title Curator [id number] at 07/16/2016 6:07 PM CDT Miscellaneous - Nicki Holt, D.N.P., C.N.P. - 10/21/2012 9:58 AM CDT Normal Results Letter 21 October 2012 ARCHIE BAZAN [address] [place] [id number] Dear ARCHIE BAZAN, Result Name Current Result Previous Result Normal Range UA Color Yellow 10/21/2012 Yellow 09/14/2012 Yellow 09/02/2012 Yellow 08/16/2012 Yellow - UA Spec Grav 1.025 10/21/2012 1.020 09/14/2012 1.020 09/02/2012 1.015 08/16/2012 1.000 - 1.030 UA pH 5.5 10/21/2012 5.5 09/14/2012 5.5 09/02/2012 5.0 08/16/2012 5.0 - 8.0 UA Protein Negative 10/21/2012 Negative 09/14/2012 Negative 09/02/2012 Negative 08/16/2012 Negative - UA Glucose Negative 10/21/2012 Negative 09/14/2012 Negative 09/02/2012 Negative 08/16/2012 Negative - UA Ketones Negative 10/21/2012 Negative 09/14/2012 Negative 09/02/2012 Negative 08/16/2012 Negative - UA Bili 1+ 10/21/2012 Negative 09/14/2012 Negative 09/02/2012 Negative 08/16/2012 Negative - UA Urobilinogen 0.2 10/21/2012 0.2 09/14/2012 0.2 09/02/2012 0.2 08/16/2012 UA Blood Trace-intact 10/21/2012 Negative 09/14/2012 Trace-lysed 09/02/2012 Trace-lysed 08/16/2012 Negative - UA Nitrite Negative 10/21/2012 Negative 09/14/2012 Negative 09/02/2012 Negative 08/16/2012 Negative - UA Leuk Est 2+ 10/21/2012 1+ 09/14/2012 2+ 09/02/2012 1+ 08/16/2012 Negative - UA WBC 51-100 10/21/2012 1-3 09/14/2012 5-10 09/02/2012 5-10 08/16/2012 UA RBC 3-10 10/21/2012 0-2 09/14/2012 0-2 09/02/2012 0-2 08/16/2012 0-2 - UA Bacteria Few 10/21/2012 Few 09/14/2012 Moderate 09/02/2012 Trace 08/16/2012 UA Appear Clear 10/21/2012 Clear 09/14/2012 Clear 09/02/2012 Clear 08/16/2012 0 Clear - UA Epi Many 10/21/2012 Few 09/14/2012 Occasional 09/02/2012 Occasional 08/16/2012 Cholesterol (mg/dL) (H) 218 10/21/2012 124 06/15/2012 (H) 208 03/09/2012 0 - 200 Trig (mg/dL) 126 10/21/2012 107 06/15/2012 (H) 319 03/09/2012 9 - 150 HDL (mg/dL) 50 10/21/2012 54 06/15/2012 57 03/09/2012 35 - 60 LDL Calculated (mg/dL) (H) 142 10/21/2012 (L) 49 06/15/2012 (L) 87 03/09/2012 100 - 129 Chol/HDL Ratio 4 10/21/2012 2 06/15/2012 4 03/09/2012 Hgb A1c (%) (H) 6.46 10/21/2012 (H) 6.87 09/14/2012 (H) 6.96 06/15/2012 (H) 7.45 03/09/2012 4.00 - 6.00 Sincerely, NICKI HOLT [address] [place] [address] Electronic Signature Electronically Signed By: NICKI HOLT DNP, FNP On: 21 October 2012 This document has images extracted. Source: [facility] POWERCHART Document Id: [id number] Electronically signed by Conversion, [facility] Title Curator [id number] at 07/16/2016 6:07 PM CDT documented in this encounter Plan of Treatment Not on filedocumented as of this encounter Procedures Procedure Name Priority Date/Time Associated Comments Diagnosis BACTERIAL CULTURE, Routine 10/21/2012 9:12 Resul ts for this AEROBIC, URINE AM CDT procedure are in the results section. HXUR % DYSMORPHIC RBC Routine 10/21/2012 9:12 Re sults for this AM CDT procedure are i n the results section. URINALYSIS, ROUTINE Routine 10/21/2012 9:12 Resu lts for this AM CDT procedure are i n the results section. URINE MICROSCOPIC Routine 10/21/2012 9:12 Result s for this AM CDT procedure are i n the results section. LIPID PANEL, S Routine 10/21/2012 9:06 Results f or this AM CDT procedure are i n the results section. THYROID-STIMULATING Routine 10/21/2012 9:06 Resu lts for this HORMONE-SENSITIVE AM CDT procedure are in (S-TSH) the results section. HEMOGLOBIN A1C, B Routine 10/21/2012 9:06 Result s for this AM CDT procedure are i n the results section. documented in this encounter Results Bacterial Culture, Aerobic, Urine (10/21/2012 9:12 AM CDT) [facility] gist Method Time Signature Bacterial POWERCHART Culture, Aerobic, Urine HXPre <10,000 cfu/mL POWERCHART Mixed ismael (multiple species present) Continuing incubation HXFinal >100,000 POWERCHART cfu/mL Mixed ismael (multiple species present) HXFinal No further POWERCHART work-up. Specimen (Source) Anatomical Collection Method Collection Time Re ceived Time Location / / Volume Laterality Micro Spec 10/21/2012 9:12 AM CDT Nicki Holt CDL DRIVER, C.N.P., D.N.P. LAB MICROBIOLO GY - GENERAL ORDERABLES Performing Organization Address City/[facility] Code Phon e Number POWERCHART HXUR % DYSMORPHIC RBC (10/21/2012 9:12 AM CDT) athologist Signature Dysmorphic RBC <=25 <=25 POWERCHART Specimen Anatomical Collection Method Collection Time Receive d Time (Source) Location / / Volume Laterality Urine 10/21/2012 9:12 10/21/2012 AM CDT 9:12 AM CDT Deana Mojica APRN.N.PJairo, Maritza.N.P. LAB HISTORICAL ORDERS Performing Organization Address City/[facility] Code Phon e Number POWERCHART Urine Microscopic (10/21/2012 9:12 AM CDT) athologist Signature HXUr WBC 51-100 POWERCHART Red Blood Cell 3-10 0 - 2 POWERCHART Clump, Urine HXUr Bacteria Few POWERCHART HXUr Epithelial Many POWERCHART Comment: Many Squamous Few Transitional and Renal Tubular. Specimen Anatomical Collection Method Collection Time Receive d Time (Source) Location / / Volume Laterality Urine 10/21/2012 9:12 10/21/2012 AM CDT 9:12 AM CDT Nicki Holt APRN, Deana.N.P., D.N.P. LAB URINE ORDE RABLES Performing Organization Address City/[facility] Phon e Number POWERCHART Urinalysis, Routine (10/21/2012 9:12 AM CDT) athologist Signature HXUr Color Yellow Yellow POWERCHART Appearance Clear Clear POWERCHART Glucose Negative Negative POWERCHART HXBILIRUBIN 1+ Negative POWERCHART Comment: neg per visual exam 10/21/2012 09:30:58 CDT [id number] Ketones, QL(U) Negative Negative POWERCHART Specific Vista, POCT, U 1.025 1.000 - 1.030 POWERCHART pH, POCT, Urine 5.5 5.0 - 8.0 POWERCHART Protein, Ur, Dip Negative Negative POWERCHART Urobilinogen 0.2 POWERCHART HXNITRITE Negative Negative POWERCHART HXBLOOD Trace-intact Negative POWERCHART Leukocyte Esterase 2+ Negative POWERCHART Specimen (Source) Anatomical Collection Method Collection Time Re ceived Time Location / / Volume Laterality Urine 10/21/2012 9:12 AM CDT Deana Mojica APRN.N.P., D.N.P. LAB URINE ORDE RABLES Performing Organization Address City/State/ZIP Code Phon e Number POWERCHART (ABNORMAL) Hemoglobin A1c (10/21/2012 9:06 AM CDT) Analysis Performed At [facility] Time Signature Hemoglobin A1c, 6.46 (H) 4.00 - POWERCHART B 6.00 Specimen (Source) Anatomical Collection Method Collection Time Re ceived Time Location / / Volume Laterality Blood 10/21/2012 9:06 AM CDT Nicki Holt APRN C.N.P., D.N.P. LAB BLOOD ADD- ON Performing Organization Address City/[facility] Code Phon e Number POWERCHART (ABNORMAL) Lipid Panel (10/21/2012 9:06 AM CDT) P athologist Signature Cholesterol, 218 (H) 0 - 200 POWERCHART Total MGDL Comment: <200 mg/dL Desirable 200-239 mg/dL Borderline High >239 mg/dL High HX HDL 50 35 - 60 MGDL POWERCHART Comment: > 60 mg/dL Desirable 40 ? 60 mg/dL Low Risk <40 mg/dL Undesirable Triglycerides 126 9 - 150 MGDL POWERCHART Comment: <150 mg/dL Desirable 150-199 mg/dL Borderline High 200-499 mg/dL High > 499 Very High Calculated LDL 142 (H) 100 - 129 MGDL POWERCHART Total Cholesterol/HDL Ratio 4 PO WERCHART Specimen (Source) Anatomical Collection Method Collection Time Re ceived Time Location / / Volume Laterality Blood 10/21/2012 9:06 AM CDT Nicki Holt APRN, C.N.P., D.N.P. LAB BLOOD ADD- ON Performing Organization Address City/[facility]/ZIP Code Phon e Number POWERCHART (ABNORMAL) Thyroid-Stimulating Hormone-Sensitive (s-TSH) (10/21/2012 9:06 AM CDT) Analysis Performed At [facility] Time Signature TSH 5.55 (H) 0.30 - 5.00 POWERCHART (Thyrotropin) MCIUML Specimen (Source) Anatomical Collection Method Collection Time Re ceived Time Location / / Volume Laterality Blood 10/21/2012 9:06 AM CDT Nicki Holt APRN, C.N.P., D.N.P. LAB BLOOD ADD- ON Performing Organization Address City/State/ZIP Code Phon e Number POWERCHART documented in this encounter Visit Diagnoses Not on filedocumented in this encounter
--- OUTSIDE RECORDS SUMMARY | 2021-09-05 08:02 | XMS_ITS | Encounter Summary ---
:1945 Author Organization [facility] Address [address] [place] [address] Care Team Providers Name Role Phone Unavailable Primary Care Provider Unavailable Encounter Details Date Type Department Care Team Description 07/29/2012 Hospital Encounter HX [facility] Nicki Anthony, MAL, C.N.P., D. N.P. [address] [place] [address] (Wo rk) Social History Tobacco [...] Progress Notes Conversion, Historical Provider Ser - 07/29/2012 8:56 AM CDT [id number] HEALTH AND WELLNESS COACHING The patient was seen at [facility] in [place] on 07/29/2012 for follow-up wellness coaching visit around the areas of diabetes and weight loss. CHIEF COMPLAINT/REASON FOR VISIT Follow-up wellness coaching visit. PHYSICAL EXAMINATION Weight is at 82.6 kg, which is 181.72 pounds. She is up 0.88 pounds this week. GOAL REVIEW 1. Goal #1 was not successful in achieving a 1-pound weight loss goal this week. 2. Goal #2 was 50% successful in achieving a healthy diet free of refined carbohydrates and processed sugars. SESSION SUMMARY Marcial reported that she had more social activities this last week and did indulge in some sweets and bars while out with friends during her quilting get- away. She reports feeling tempted with sweets when she is out with her friends. 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 She also made a connection of having more salt in the last week. They did have Luis's.Although it was with turkey she still felt that the salt intake was higher than what she normally takes in a daily week. When discussing her stress level this week, she noted that it was up the last week and that when she is stressed and upset she sometimes feels like she has a nervous energy and theneed for grabbing something. She also identified that she was emotional eating as she did have somebad news around some family issues. She did also report a success though. She was able to keep active and also did some nice walks during the week which helps with stress and also helped her feel better overall. We discussed areas in which she could manage her stress without using food or sweets and identified several areas: 1. Walking. 2. Visiting more with her friends. 3. Going to see the neighbor's. 4. Doing her relaxation CD. 5. Just getting up and doing something rather than worrying about it. NEW GOALS SET: 1. Continue with the 1-pound weight loss deficit. 2. Work on stress management. She is going to implement some self-soothing tools in productive ways using relaxation CD's, walks, quilting, talking with friends, doing gratitude and prayer this week to manage her emotions and stress level. She also wants to get in some walking along with healthy meals. 3. Do her relaxation CD at least 3 times during the week. FOLLOW-UP PLAN We will see patient next week and continue to move forward in her goals. Annie Miramontes/[facility] Electronically Signed By: ANNIE MIRAMONTES On: 08/23/2012 10:34 AM Source: [facility] PRESTONSDOLBEYNPERRY Document Id: [id number] documented in this encounter Plan of Treatment Not on filedocumented as of this encounter Visit Diagnoses Not on filedocumented in this encounter
--- OUTSIDE RECORDS SUMMARY | 2021-09-05 08:02 | XMS_ITS | Encounter Summary ---
:1945 Author Organization [facility] Address [address] [place] [address] Care Team Providers Name Role Phone Unavailable Primary Care Provider Unavailable Encounter Details Date Type Department Care Team Description 09/30/2012 Hospital Encounter [facility] Nicki Anthony, MAL, C.N.P., D. N.P. [address] [place] [address] (Wo rk) Social History Tobacco [...] by mouth daily. Take 0 with food [email or web address]. documented as of this encounter Progress Notes Conversion, Historical Provider Ser - 09/30/2012 9:45 AM CDT [id number] HEALTH & WELLNESS COACHING VISIT CHIEF COMPLAINT/REASON FOR VISIT Follow-up wellness coaching visit around the area of Diabetes and weight loss. OBJECTIVE INFORMATION Today, her weight is at 80.6 kg which is at 177.32 pounds which is down 1.76 pounds since our last session. PATIENT REVIEW She is currently down 1.76 pounds today. She has been going to the chiropractor around the pain in her left forearm. She is also noting that she is having some extreme sensitivity to the touch at night during around that area of the forearm. We discussed her goal review around eating healthy portion size and walking. She also feels that she gets stressed out about things and sometimes will have physical sensations in her body. We discussed the importance of her to continue on with her CD doing the relaxation therapy around the guided imagery and progressive muscle relaxation. We also talked about the importance of having a down day, like a play day. She indicated that she is going to have a play date with her [id number] in the next week and is looking forward to doing that. She rates her stress level of 6 to 10, sleep a 4 out of 10, her mood at an 8 out of 10 and her energy at 8 out of 10. NEW GOALS SET Goal #1: Would continue to do the 1.5-pound weight loss for her goal in addition to watching her portion and food choices over the next few weeks. Her ideal is to get down another 15 pounds which would be right around the 150 adolfo. FOLLOW-UP PLAN We will continue to meet ongoing every 2 to 3 weeks as she sees helpful. Annie Pérez/[facility] Electronically Signed By: ANNIE PÉREZ On: 10/12/2012 02:34 PM Source: [facility] MHSDOLBEYNONRADSYS Document Id: [id number] documented in this encounter Plan of Treatment Not on filedocumented as of this encounter Visit Diagnoses Not on filedocumented in this encounter
--- OUTSIDE RECORDS SUMMARY | 2021-09-05 08:02 | XMS_ITS | Encounter Summary ---
:1945 Author Organization [facility] Address [address] [place] [address] Care Team Providers Name Role Phone Unavailable Primary Care Provider Unavailable Encounter Details Date Type Department Care Team Description 08/16/2012 Hospital Encounter HX [facility] Vickey Holt, MAL, C.N.P., D. N.P. [address] [place] [address] (Wo rk) Social History Tobacco [...] Sign Reading Time Taken Comments Blood Pressure 124/66 08/16/2012 7:28 AM CDT Pulse 60 08/16/2012 7:28 AM CDT Temperature - - Respiratory Rate 16 08/16/2012 7:28 AM CDT Oxygen Saturation - - Inhaled Oxygen Concentration - - Weight 81.9 kg (180 lb 8.9 oz) 08/16/2012 7:28 AM CDT Height 161 cm (5' 3.39) 08/16/2012 7:28 AM CDT Body Mass Index 31.6 08/16/2012 7:28 AM CDT documented in this encounter Medications at Time of Discharge Medication Sig Dispensed Refills Start Date End Date ASPIRIN ORAL Take 81 mg by mouth daily. Take 0 with food for heart health. documented as of this encounter Progress Notes Vickey Holt D.N.P., SimoneNLizbeth. - 08/16/2012 7:21 AM CDT [id number] CHIEF COMPLAINT/REASON FOR VISIT Dysuria. HISTORY OF PRESENT ILLNESS The patient is a 67-year-old female who presents to clinic today with chief complaint of dysuria present now for the past several days duration. She indicates the symptoms are not improving. She indicates it is more like a pelvic pressure. She has not had any fevers, chills, nausea, vomiting, shortn ess of breath or difficulty breathing. She also indicates that she has some right shoulder ongoing pain status post a fall that she sustained approximately 6 months ago during the wintertime. She indicates she had grabbed something to catch herself from falling with her right arm and injured her right shoulder. She indicates since then she has had some loss of range of motion. She is not having any numbness or tingling and has tried some acute care nurse for this with no symptom improvement. CURRENT MEDICATIONS ALLERGIES Medications and allergies reviewed. Please see chart. PAST MEDICAL HISTORY/SURGICAL HISTORY FAMILY HISTORY Past medical, surgical, family history reviewed. Please see chart. PHYSICAL EXAMINATION GENERAL: Patient is alert and oriented x 3. HEENT: Head is normocephalic and atraumatic. PERRLA. Oropharynx is pink and moist. Bilateral TMsare clear. Bony landmarks are noted and within normal limits. Nares are patent with no erythema ordrainage noted. NECK: No anterior or posterior lymphadenopathy noted. HEART: Heart is regular with normal S1 and S2. No murmurs, rubs or gallops are noted. LUNGS: Lungs are clear to auscultation. No prolonged expiratory phases. No wheezing, rales or rhonchi are noted. SKIN: Skin without any unusual rashes or suspicious lesions noted. ABDOMEN: Bowel sounds are positive in all 4 quadrants. No hepatosplenomegaly is noted. No rebound, tenderness, guarding or rigidity is noted. The patient denies cva tenderness upon examination. EXTREMITIES: The patient is unable to complete a lift-off test to the right upper extremity and is also unable to bring her right hand up and over the back of her head touching the left scapular area. Empty can test is noted to be negative. LABORATORY: Urine is yellow and clear, negative protein, glucose, ketones and bilirubin. Trace blood, negative nitrate, 1+ leukocytes were noted, 5 to 10 white blood cells and trace bacteria were noted. IMPRESSION/REPORT/PLAN 1. Dysuria. 2. Right shoulder pain. PLAN: 1. Dysuria: At this time, given her current symptoms, I did opt to treat her with Bactrim DS to take 1 tablet by mouth twice a day for next 5 days duration. I opted to treat her for 5 days given her history of diabetes but with adequate glycemic control. She is to follow up in the clinic ifher symptoms worsen or continue. Patient felt comfortable with this treatment plan. 2. Right shoulder pain: At this time, we will plan on having her follow up with physical therapy for further treatment regarding her shoulder pain. We will also plan on scheduling an MRI with contrast through [facility] in [place]. We will contact her regarding these results, though we will only plan on going forward with this if she does not have improvement with physical therapy. Patient understands this plan. She otherwise denied having further questions or concerns. Patient ambulated out of the clinic in no acute distress. Patient Education #1 Patient/child/caregiver is ready to learn. No apparent learning barriers were identified. Learning preferences included listening. Explained diagnosis and treatment plan. Patient/child/caregiver expressed understanding of the content. Corrine LucasNLizbeth./F.N.P/felix Electronically Signed By: VICKEY HOLT DNP, FNP On: 08/17/2012 08:18 PM Source: [facility] MHSDOLBEYNONRADSYS Document Id: [id number] documented in this encounter Nursing Notes Jie Thomason L.P.NJairo - 08/16/2012 1:07 PM CDT MRI Per Provider Vickey Holt, MRI with contrast order was faxed to [facility]. Fax # . Electronically Signed By: JIE THOMASON LPN On: 08/16/2012 01:09 PM Source: [facility] POWERCHART Document Id: [id number] documented in this encounter Miscellaneous Notes Miscellaneous - Vickey Holt D.N.P., C.N.P. - 08/16/2012 9:15 AM CDT Ambulatory Patient Summary [address] [place] [address] Visit Information Name: MARCIAL BAZAN [facility] Number: [id number] Current Date: 08/16/2012 09:15:53 Physicians Attending Provider: VICKEY HOLT DNP, FNP Primary Care Provider: VICKEY HOLT DNP, FNP Your Medications Here is a list of your medications. It is important to take your medications as directed. Use a pillbox or chart to help remind you to take your medications. Please let your doctor or nurse know if you have problems taking your medications. Medication/Strength Dose Route Frequency Indications/Special Instructions/Comments/Notes sulfamethoxazole-trimethoprim (Bactrim DS 800 mg-160 mg oral tablet) 1 tab(s) Oral two times a day for 5 Days metFORMIN (metformin 1000 mg oral tablet, extended release) 1,000 mg Oral once a day Take for high blood sugars. levothyroxine (levothyroxine 25 mcg (0.025 mg) oral tablet) 25 mcg Oral once a day amlodipine (Norvasc 2.5 mg oral tablet) 2.5 mg Oral once a day Take for high blood pressure. simvastatin (simvastatin 10 mg oral tablet) 10 [...] Upcoming Appointments Date Time Location Reason Provider 08/20/2012 08:45 [facility] FOLLOW UP [facility] 08/26/2012 08:45 [facility] FOLLOW UP [facility] 09/02/2012 08:45 [facility] FO[facility] UP [facility] 09/09/2012 08:45 [facility] FOLLOW UP [facility] 09/16/2012 08:45 [facility] FOLLOW UP [facility] Your Goals/Additional instructions: Source: [facility] POWERCHART Document Id: [id number] Miscellaneous - Vickey Holt, Maritza.N.P., C.N.P. - 08/16/2012 9:15 AM CDT Ambulatory Depart Summary [address] [place] [address] Visit Information Name: MARCIAL BAZAN [facility] Number: [id number] Visit Date: 08/16/2012 09:15:52 Attending Provider: VICKEY HOLT DNP, CHAINSTITCH SEWING MACHINE OPERATOR Primary Care Provider: VICKEY HOLT DNP, CHAINSTITCH SEWING MACHINE OPERATOR MARCIAL BAZAN has been given the following list of medications: Your Medications It is important to take your medications as directed. Use a pill box or chart to help remind you to take your medications. Please let your doctor or nurse know if you have problems taking your medications. Medication/Strength Dose Route Frequency Indications/Special Instructions/Comments/Notes sulfamethoxazole-trimethoprim (Bactrim DS 800 mg-160 mg oral tablet) 1 tab(s) Oral two times a day for 5 Days metFORMIN (metformin 1000 mg oral tablet, extended release) 1,000 mg Oral once a day Take for high blood sugars. levothyroxine (levothyroxine 25 mcg (0.025 mg) oral tablet) 25 mcg Oral once a day amlodipine (Norvasc 2.5 mg oral tablet) 2.5 mg Oral once a day Take for high blood pressure. simvastatin (simvastatin 10 mg oral tablet) 10 [...] your provider for clarification. Additional Information: Source: [facility] POWERCHART Document Id: [id number] Miscellaneous - Sylvia Darnell L.P.N. - 08/16/2012 7:28 AM CDT Adult Zipper Setter Chainstitch Intake/History Adult Zipper Setter Chainstitch Intake/History Entered On: 08/16/2012 7:36 CDT Performed On: 08/16/2012 7:28 CDT by SYLVIA DARNELL HR SPECIALIST Intake Chief Complaint : Right shoulder slipped on ice when getting out of truck this winter, Can't hold urine, feels funny Temperature Core : 36.1 DegC(Converted to: 97.0 DegF) (LOW) Peripheral Pulse Rate : 60 /min Respiratory Rate : 16 /min Heart Rhythm : Regular Systolic Blood Pressure : 124 mmHg Diastolic Blood Pressure : 66 mmHg NIBP Mean : 85 mmHg BP Location : Left upper extremity Blood Pressure Cuff Size : Regular Height : 161.0 cm(Converted to: 5 ft 3 inch(es), 63.39 inch(es)) Actual Weight : 81.9 kg(Converted to: 180 lb 9 oz) Weight Source : Standing scale Dosing Weight Clinic : 81.9 kg Clinic BSA : 1.91 Body Mass Index : 31.6 kg/m2 SYLVIA DARNELL LPN - 08/16/2012 7:28 CDT General Info Information Given By : Patient Languages : Barbadian [facility] - 08/16/2012 7:28 CDT Subjective Pain Symptoms : No SYLVIA DARNELL LPN - 08/16/2012 7:28 CDT Dependent Habits Tobacco Use/Currently Using : No Tobacco Use/Last 12 months : No Tobacco Use/Advised to Quit : No Exposure to Tobacco Smoke : Care provider denies smoking in home Smoking Status : Never smoker SYLVIA DARNELL HR SPECIALIST - 08/16/2012 7:28 CDT Tobacco Use Grid Last Use : Never SYLVIA DARNELL LPN - 08/16/2012 7:28 CDT Alcohol Use : No SYLVIA DARNELL LPN - 08/16/2012 7:28 CDT Caffeine Use Grid Caffeine Use : Current Type : Tea Frequency : Occasionally SYLVIA DARNELL LPN - 08/16/2012 7:28 CDT Recreational Drug Use Grid Drug Use : None SYLVIA DARNELL LPN 08/16/2012 7:28 CDT [facility] Document Id: [id number] CDT!41 documented in this encounter Plan of Treatment Not on filedocumented as of this encounter Procedures Procedure Name Priority Date/Time Associated Comments Diagnosis URINALYSIS, ROUTINE Routine 08/16/2012 8:20 AM R esults for this CDT procedure are i n the results section. URINE MICROSCOPIC Routine 08/16/2012 8:20 AM Res ults for this CDT procedure are i n the results section. documented in this encounter Results Urine Microscopic (08/16/2012 8:20 AM CDT) [facility] Method Time Signature HXUr WBC 5-10 0 - 2 POWERCHART Red Blood Cell 0-2 0 - 2 POWERCHART Clump, Urine HXUr Bacteria Trace POWERCHART HXUr Epithelial Occasional POWERCHART Comment: Occasional squamous, transition al, and renal epithelials present. Specimen Anatomical Collection Method Collection Time Receive d Time (Source) Location / / Volume Laterality Urine 08/16/2012 8:20 08/16/2012 AM CDT 8:20 AM CDT Vickey Holt APRN, C.N.P., D.N.P. LAB URINE ORDSingh PADRONCHRISTOPHER Performing Organization Address [facility] Phon e Number POWERCHART Urinalysis, Routine (08/16/2012 8:20 AM CDT) [facility] Method Time Signature HXUr Color Yellow Yellow POWERCHART Appearance Clear Clear POWERCHART Glucose Negative Negative POWERCHART HXBILIRUBIN Negative Negative POWERCHART Ketones, QL(U) Negative Negative POWERCHART Specific 1.015 1.000 - POWERCHART [place], POCT, U 1.030 pH, POCT, Urine 5.0 5.0 - 8.0 POWERCHART Protein, Ur, Dip Negative Negative POWERCHART Urobilinogen 0.2 POWERCHART HXNITRITE Negative Negative POWERCHART HXBLOOD Trace-lysed POWERCHART Leukocyte 1+ Negative POWERCHART Esterase Source Clean Void POWERCHART Urine Specimen (Source) Anatomical Collection Method Collection Time Re ceived Time Location / / Volume Laterality Urine 08/16/2012 8:20 AM CDT Vickey Holt APRN, C.N.P., D.N.P. LAB URINE ORDE NEREIDALES Performing Organization Address [place]/[facility] Code Phon e Number POWERCHART documented in this encounter Visit Diagnoses Not on filedocumented in this encounter
--- OUTSIDE RECORDS SUMMARY | 2021-09-05 08:02 | XMS_ITS | Encounter Summary ---
:1945 Author Organization [facility] Address [address] [place] [address] Care Team Providers Name Role Phone Unavailable Primary Care Provider Unavailable Encounter Details Date Type Department Care Team Description 05/06/2012 Hospital Encounter HX [facility] Nicki Anthony, MAL, C.N.P., D. N.P. [address] [place] [address] (Wo rk) Social History Tobacco [...] Progress Notes Conversion, Historical Provider Ser - 05/06/2012 8:58 AM CDT [id number] HEALTH AND WELLNESS COACHING REFERRING PHYSICIAN: Nicki Anthony, D.N.P./F.N.P CHIEF COMPLAINT/REASON FOR VISIT The patient was seen at the [facility] in [place] on 05/06/2012. The patient ishere for a return visit. Her overall goal is diabetes management and weight loss. GOAL REVIEW 1. The patient was 100% successful in writing down all of her food and exercise for the week. 2. She was 100% successful in exercising 5 days a week. 3. Goal of 1 to 2 pound deficit weekly was 100% successful and actually lost a total amount of 2.89 pounds. She attributed this to not having as many snacks and also lessen the amount of nuts in herdiet. OBJECTIVE DATA Weight is 85.1 kg, 187.61 pounds, which is a weight loss of 2.89 pounds for the week. SESSION SUMMARY She is very motivated to move forward in her weight loss and feeling really good about what she has accomplished this week. She did also indicate that she has had a little bit of success and having some anxiety around that. She felt like at times she gets dizzy or feels afraid of her low blood sugar. We talked about how to manage this with healthy food options and also really watching her diet andcontinuing to monitor her feelings and symptoms. She also indicated that she had had a migraine without a headache, an ocular vision disturbance, but then did her relaxation CD and it seemed to help quite a bit, and still did her treadmill later on in the day. NEW GOALS The patient has set the following goals for the next week: 1. A goal of a 1 to 2 pound deficit in her weight loss weekly. 2. Continue with the exercise plan of 5 days a week for 1 mile with a 5-minute cool down and adding in possibly a second exercise spot during the day if possible and if she feels so inclined. 3. Relaxation CD twice a week in the afternoons. As a bonus, she is interested in picking up somekind of the protein/low sugar bars like the KIND bar or ARUN bar at the [employer] in [place]. FOLLOW-UP PLAN Will follow-up with patient in 1 to 2 weeks time and continue on with her wellness plan. Annie Pérez/[facility] Electronically Signed By: ANNIE PÉREZ On: 06/14/2012 11:54 AM Source: [facility] MHSDOLBEYNONRADSYS Document Id: [id number] documented in this encounter Plan of Treatment Not on filedocumented as of this encounter Visit Diagnoses Not on filedocumented in this encounter
--- OUTSIDE RECORDS SUMMARY | 2021-09-05 08:02 | XMS_ITS | Encounter Summary ---
:1945 Author Organization [facility] Address [address] [place] [address] Care Team Providers Name Role Phone Unavailable Primary Care Provider Unavailable Encounter Details Date Type Department Care Team Description 06/10/2012 Hospital Encounter HX [facility] Nicki Anthony, MAL, C.N.P., D. N.P. [address] [place] [address] (Wo rk) Social History Tobacco [...] mouth daily. Take 0 with food for [employer] [facility] health. documented as of this encounter Progress Notes Conversion, Historical Provider Ser - 06/10/2012 9:52 AM CDT [id number] HEALTH & WELLNESS COACHING CHIEF COMPLAINT/REASON FOR VISIT The patient was seen at [facility] in [place] on 06/10/2012 for a follow-up wellness coaching visit around diabetes and weight loss management. GOAL REVIEW 1. The patient was 100% successful in achieving her goal of meal planning. 2. The patient was 100% successful in exercising eight times this week. 3. Patient was 100% successful in creating relaxation 3 times throughout her week. OBJECTIVE DATA Weight is at 84.0 kg, 185.18 pounds a loss of 3.538 pounds this week. SESSION SUMMARY The patient lost 3.53 pounds this week over the last week. She indicated several successes. She was able to cut out refined sugars 100% this week. She also had company come twice and when she would normally serve sugary snacks or pastries she had fruits instead this week. She also reported that she did not eat sweets even on her birthday, made healthy replacements around having an open faced sandwich and using less of bread and carbs. She also reported making sure to pull all of her food on herplate before beginning to eat and also was happy to report that her has been interested and helpful in her meal planning for the week. She also attributed her weight loss to just taking 1 serving and having no seconds and finding that she is eating slower and feeling satiated with doing so. NEW GOALS SET 1. To continue with no refined sugars for the next week. 2. To exercise seven times a week during this week. 3. To continue with her relaxation techniques practicing this at least three times a week. 4. She also indicated that she would like to do menu planning for the week with her as thatwas highly successful in balance their meals and having fun doing it as well. FOLLOWUP PLAN We will see patient next week and continue to see weekly for the next 4 weeks. Annie Pérez/arnol cc: Nicki Anthony D.N.P./Stanislav.N.P Electronically Signed By: ANNIE PÉREZ On: 06/14/2012 11:52 AM Source: [facility] MHSDOLBEYNONRADSYS Document Id: [id number] documented in this encounter Plan of Treatment Not on filedocumented as of this encounter Visit Diagnoses Not on filedocumented in this encounter
--- OUTSIDE RECORDS SUMMARY | 2021-09-05 08:02 | XMS_ITS | Encounter Summary ---
:1945 Author Organization [facility] Address [address] [place] [address] Care Team Providers Name Role Phone Unavailable Primary Care Provider Unavailable Encounter Details Date Type Department Care Team Description 11/04/2012 Hospital Encounter [facility] Nicki Anthony, MAL, C.N.P., D. N.P. [address] [place] [address] (Wo rk) Social History Tobacco [...] - Inhaled Oxygen Concentration - - Weight 81.5 kg (179 lb 10.8 oz) 11/04/2012 5:06 PM CDT Height - - Body Mass Index 31.44 11/04/2012 2:31 PM CDT documented in this encounter Medications at Time of Discharge Medication Sig Dispensed Refills Start Date End Date ASPIRIN ORAL Take 81 mg by mouth daily. Take 0 with food for heart health. documented as of this encounter Progress Notes Conversion, Historical Provider Ser - 11/04/2012 8:47 AM CDT [id number] HEALTH & WELLNESS COACHING Referring Physician Nicki Anthony D.N.P./Elmer. Patient was seen in [facility] for follow-up wellness coaching visit around the area of Diabetes management and weight loss the date of 11/04/2012. CHIEF COMPLAINT/REASON FOR VISIT Follow-up wellness coaching visit. OBJECTIVE INFORMATION Her weight is at 81.5 kg which is 179.3 pounds. This is a weight increase of 2.2 pounds since our last session. SESSION OVERVIEW Marcial reports feeling very hungry this week and having a few days where she felt that she could notget enough to eat. She attributes this increase in her weight 2.2 pounds to her eating more throughout the week. She also identified that she has been more stressed in the last week with pondering whether or not she should have her shoulder surgery. She is not sure about what to do and is very concerned about what the right choice is. We also discussed that she was not able to do her relaxation over the last 2 weeks which is also tied into an increased stress level which could possibly be a trigger for her increased hunger/emotional eating. NEW GOAL SET Goal #1: Would like to continue on with her exercise regimen of 3 to 4-times a week for 30 minutes outdoors or inside whatever permits. Goal #2: Would be incorporating her relaxation tape and daily relaxation a minimum of 3-times a week and ideally would be doing breath work and sitting and relaxing at least 5 minutes daily. FOLLOW-UP PLAN We will continue to see every 2 weeks for 30 minutes. Annie Pérez/[place] Electronically Signed By: ANNIE PÉREZ On: 11/09/2012 12:47 PM Source: [facility] MHSDOLBEYNONRADSYS Document Id: [id number] documented in this encounter Miscellaneous Notes Miscellaneous - Diana Cardoza L.P.N. - 11/04/2012 5:06 PM CDT Ambulatory Vitals Height Weight Ambulatory Vitals Height Weight Entered On: 11/09/2012 17:06 CDT Performed On: 11/04/2012 17:06 CDT by DIANA CARDOZA LPN Vitals/Ht/Wt Actual Weight : 81.5 kg(Converted to: 179 lb 11 oz) Weight Source : Standing scale Dosing Weight Clinic : 81.5 kg DIANA CARDOZA LPN - 11/09/2012 17:06 CDT Source: [facility] POWERCHART Document Id: [id number] CDT!5 documented in this encounter Plan of Treatment Not on filedocumented as of this encounter Visit Diagnoses Not on filedocumented in this encounter
--- OUTSIDE RECORDS SUMMARY | 2021-09-05 08:02 | XMS_ITS | Encounter Summary ---
:1945 Author Organization [facility] Address [address] [place] [address] Care Team Providers Name Role Phone Unavailable Primary Care Provider Unavailable Encounter Details Date Type Department Care Team Description 09/14/[address] [facility] Nicki Holt, MAL, C.N.P., D. N.P. [address] [place] [address] (Wo rk) Social History Tobacco [...] by mouth daily. Take 0 with food [employer]. documented as of this encounter Progress Notes Conversion, Historical Provider Ser - 09/14/2012 9:49 AM CDT [id number] CHIEF COMPLAINT/REASON FOR VISIT Patient was seen on 09/14/2012 for follow-up wellness coaching visit around the area of weight loss and diabetes. HISTORY OF PRESENT ILLNESS Patient is at 81.4 kg which is 179.08 pounds which is a gain of 1.98 pounds in the last week. Goal review. 1. Walking for 30 minutes 3 to 4 times a week was 100% successful. 2. Around the area of relaxation 2 times a week was 50% successful. She reports having 2 cookies while at the cabin. She also did have a bunch of women to her cabin and did not eat a lot of the foods there but instead brought healthy choices and shared those instead. She did also increase her meat consumption ideally to now twice a week and feels that her energy level has increased with doing so. She also was successful in getting her new treadmill from [employer] and is all set up and prepared for winter or humid days. She has also been incorporating cranberry juice as she feels that she may have a UTI. IMPRESSION/REPORT/PLAN New goals set: wants to continue with the 1.5-pound weight loss goal for weekly and continue to move forward in doing her healthy goal planning as far as portion size and healthy portions. Goal #3 would be to continue on with low sugar and processed foods for the next 1 to 2 weeks and continue to meet ongoing. PLAN: Will continue to meet every week to 2 weeks moving forward towards her diabetes and wellness goals. Annie Pérez/ Electronically Signed By: ANNIE PÉREZ On: 10/12/2012 02:34 PM Source: [facility] MHSDOLBEYNONRADSYS Document Id: [id number] documented in this encounter Miscellaneous Notes Miscellaneous - Diana Cardoza L.PJairoNJairo - 09/16/2012 2:41 PM CDT General Message Document Contains Addenda Addendum by DIANA CARDOZA LPN on 16 September 2012 15:58:58 CDT I let her know. Addendum by NICKI HOLT DNP, FNP on 16 September 2012 15:50:25 CDT From: NICKI HOLT DNP, FNP To: DIANA CARDOZA LPN; Sent: 09/16/2012 15:50:25 CDT Subject: RE: General Message Addendum by NICKI HOLT DNP, FNP on 16 September 2012 15:50:23 CDT Please let her know I am culturing her urine, so I will contact her if there is any infection present that may be causing the symptoms. Please let her know that I wasn't in the clinic to call her yesterday, but accessed her labs from home and sent the letter from home. thank you. From: DIANA CARDOZA LPN To: NICKI HOLT DNP, TIN CAN FEEDER; Sent: 09/16/2012 14:41:57 CDT Subject: General Message S. Patient called looking for lab results. B. Had Hgb A1c and Ua A. Explained to patient that a letter has been generated, but reviewed labs anyway. Pt. still experiencing a funny feeliing on the right side in her bladder. Explains it is like a pushing/ moving sensation. R. I assured her I would pass it on, and if you have any other suggestions I would call her back. [phone] Source: [facility] POWERCHART Document Id: [id number] Electronically signed by Sae, [facility] Laboratory Technician [id number] at 07/16/2016 10:11 AM CDT documented in this encounter Plan of Treatment Not on filedocumented as of this encounter Visit Diagnoses Not on filedocumented in this encounter
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
--- OUTSIDE RECORDS SUMMARY | 2021-09-05 08:02 | XMS_ITS | Encounter Summary ---
:1945 Author Organization [facility] Address [address] [place] [address] Care Team Providers Name Role Phone Unavailable Primary Care Provider Unavailable Encounter Details Date Type Department Care Team Description 08/31/2012 Hospital Encounter HX NO MAPPING Nicki Anthony, MAL, C.N.P., D.N.P. [address] [place], [place] [phone] (Wo rk) Social History [...]
--- OUTSIDE RECORDS SUMMARY | 2021-09-05 08:02 | XMS_ITS | Encounter Summary ---
:1945 Author Organization [facility] Address [address] [place] [address] Care Team Providers Name Role Phone Unavailable Primary Care Provider Unavailable Encounter Details Date Type Department Care Team Description 04/29/2012 Hospital Encounter H[facility] Asha Ramon, MAL, C.N.P., D. N.P. [address] [place], [place] [phone] (Wo rk) Social History [...] by mouth daily. Take 0 with food [employer]. documented as of this encounter Miscellaneous Notes Miscellaneous - Nicki Anthony, D.N.P., C.N.P. - 04/30/2012 9:31 AM CDT Results Notification Document Contains Addenda Addendum by VITALIY VILLEDA LPN on 30 April 2012 09:46:08 CDT Copy sent to patient. From: NICKI ANTHONY DNP, BODY SHOP MANAGER To: VITALIY VILLEDA LPN Sent: 04/30/2012 09:31:51 CDT ! Show up: 04/30/2012 14:31:51 [facility] Subject: Results Notification Actions: Note to Nurse Source: [facility] POWERCHART Document Id: [id number] Electronically signed by Conversion, [facility] Senior [employer] Consultant [id number] at 07/16/2016 1:07 PM CDT documented in this encounter Plan of Treatment Not on filedocumented as of this encounter Visit Diagnoses Not on filedocumented in this encounter
--- OUTSIDE RECORDS SUMMARY | 2021-09-05 08:02 | XMS_ITS | Encounter Summary ---
:1945 Author Organization [facility] Address [address] [place] [address] Care Team Providers Name Role Phone Unavailable Primary Care Provider Unavailable Encounter Details Date Type Department Care Team Description 09/14/2012 Hospital Encounter HX [facility] Nicki Holt, MAL, C.N.P., D.N.P. [address] [place], [place] [phone] (Wo rk) Social History [...] by mouth daily. Take 0 with food [employer] heart health. documented as of this encounter Miscellaneous Notes Miscellaneous - Nicki Holt, D.N.P., C.N.P. - 09/14/2012 7:51 PM CDT Normal Results Letter 14 September 2012 ARCHIE BAZAN [address] [place] [address] [id number] Dear Archie GUNDERSON, Your urine test did not show any blood, which is what we were looking for (this is good news). Your three month blood sugar average continues to improve!!! You are doing GREAT!!! keep up the great work!!! Please follow up with us as we discussed during your visit or sooner if you have any concerns. Ifyou have questions or concerns, please do not hesitate to call our office. Result Name Current Result Previous Result Normal Range UA Color Yellow 09/14/2012 Yellow 09/02/2012 Yellow 08/16/2012 Yellow - UA Spec Grav 1.020 09/14/2012 1.020 09/02/2012 1.015 08/16/2012 1.000 - 1.030 UA pH 5.5 09/14/2012 5.5 09/02/2012 5.0 08/16/2012 5.0 - 8.0 UA Protein Negative 09/14/2012 Negative 09/02/2012 Negative 08/16/2012 Negative - UA Glucose Negative 09/14/2012 Negative 09/02/2012 Negative 08/16/2012 Negative - UA Ketones Negative 09/14/2012 Negative 09/02/2012 Negative 08/16/2012 Negative - UA Bili Negative 09/14/2012 Negative 09/02/2012 Negative 08/16/2012 Negative - UA Urobilinogen 0.2 09/14/2012 0.2 09/02/2012 0.2 08/16/2012 UA Blood Negative 09/14/2012 Trace-lysed 09/02/2012 Trace-lysed 08/16/2012 Negative - UA Nitrite Negative 09/14/2012 Negative 09/02/2012 Negative 08/16/2012 Negative - UA Leuk Est 1+ 09/14/2012 2+ 09/02/2012 1+ 08/16/2012 Negative - UA WBC 1-3 09/14/2012 5-10 09/02/2012 5-10 08/16/2012 UA RBC 0-2 09/14/2012 0-2 09/02/2012 0-2 08/16/2012 0-2 - UA Bacteria Few 09/14/2012 Moderate 09/02/2012 Trace 08/16/2012 UA Mucous Small 09/14/2012 UA Appea r Clear 09/14/2012 Clear 09/02/2012 Clear 08/16/2012 Clear - UA Epi Few 09/14/2012 Occasional 09/02/2012 Occasional 08/16/2012 Hgb A1c (%) (H) 6.87 09/14/2012 (H) 6.96 06/15/2012 (H) 7.45 03/09/2012 (H) 7.46 12/05/2011 4.00 - 6.00 Sincerely, NICKI HOLT [address] [place] [address] Electronic Signature Electronically Signed By: NICKI HOLT DNP, FIELD CONSULTANT On: 14 September 2012 This document has images extracted. Source: [facility] POWERCHART Document Id: [id number] Electronically signed by Conversion, [facility] Diesel Powerplant Mechanic [id number] at 07/16/2016 10:11 AM CDT documented in this encounter Plan of Treatment Not on filedocumented as of this encounter Procedures Procedure Name Priority Date/Time Associated Comments Diagnosis URINALYSIS, ROUTINE Routine 09/14/2012 9:48 AM R esults for this CDT procedure are i n the results section. URINE MICROSCOPIC Routine 09/14/2012 9:48 AM Res ults for this CDT procedure are i n the results section. HEMOGLOBIN A1C, B Routine 09/14/2012 9:42 AM Res ults for this CDT procedure are i n the results section. documented in this encounter Results Urine Microscopic (09/14/2012 9:48 AM CDT) athologist Signature HXUr WBC 1-3 POWERCHART Red Blood Cell 0-2 0 - 2 POWERCHART Clump, Urine HXUr Bacteria Few POWERCHART HXUr Epithelial Few POWERCHART Comment: Few Squamous and transitional. MJP 09/14/2012 10:10:31 CDT HX MUCOUS THREADS Small POWERCHART Specimen Anatomical Collection Method Collection Time Receive d Time (Source) Location / / Volume Laterality Urine 09/14/2012 9:48 09/14/2012 AM CDT 9:48 AM CDT Nicki Holt FRUIT RECEIVER, C.N.P., D.N.P. LAB URINE ORDE RABLES Performing Organization Address City/State/ZIP Code Phon e Number POWERCHART Urinalysis, Routine (09/14/2012 9:48 AM CDT) [facility] gist Method Time Signature HXUr Color Yellow Yellow POWERCHART Appearance Clear Clear POWERCHART Glucose Negative Negative POWERCHART HXBILIRUBIN Negative Negative POWERCHART Ketones, QL(U) Negative Negative POWERCHART Specific 1.020 1.000 - POWERCHART [place], POCT, U 1.030 pH, POCT, Urine 5.5 5.0 - 8.0 POWERCHART Protein, Ur, Dip Negative Negative POWERCHART Urobilinogen 0.2 POWERCHART HXNITRITE Negative Negative POWERCHART HXBLOOD Negative Negative POWERCHART Leukocyte 1+ Negative POWERCHART Esterase Source Clean Void POWERCHART Urine Specimen (Source) Anatomical Collection Method Collection Time Re ceived Time Location / / Volume Laterality Urine 09/14/2012 9:48 AM CDT Nicki Holt APRN, C.N.P., D.N.P. LAB URINE ORDE RABLES Performing Organization Address City/State/ZIP Code Phon e Number POWERCHART (ABNORMAL) Hemoglobin A1c (09/14/2012 9:42 AM CDT) Analysis Performed At [facility] Time Signature Hemoglobin A1c, 6.87 (H) 4.00 - POWERCHART B 6.00 Specimen (Source) Anatomical Collection Method Collection Time Re ceived Time Location / / Volume Laterality Blood 09/14/2012 9:42 AM CDT Nicki Holt APRN, C.N.P., D.N.P. LAB BLOOD ADD- ON Performing Organization Address City/State/ZIP Code Phon e Number POWERCHART documented in this encounter Visit Diagnoses Not on filedocumented in this encounter
--- OUTSIDE RECORDS SUMMARY | 2021-09-05 08:02 | XMS_ITS | Encounter Summary ---
:1945 Author Organization [facility] Address [address] [place] [address] Care Team Providers Name Role Phone Unavailable Primary Care Provider Unavailable Encounter Details Date Type Department Care Team Description 11/04/2012 Hospital Encounter HX [facility] Nicki Holt, MAL, C.N.P., D. N.P. [address] [place] [address] (Wo rk) Social History Tobacco [...] Sign Reading Time Taken Comments Blood Pressure 116/80 11/04/2012 2:31 PM CDT Pulse 68 11/04/2012 2:31 PM CDT Temperature - - Respiratory Rate 16 11/04/2012 2:31 PM CDT Oxygen Saturation - - Inhaled Oxygen Concentration - - Weight 81.9 kg (180 lb 8.9 oz) 11/04/2012 2:31 PM CDT Height 161 cm (5' 3.39) 11/04/2012 2:31 PM CDT Body Mass Index 31.6 11/04/2012 2:31 PM CDT documented in this encounter Medications at Time of Discharge Medication Sig Dispensed Refills Start Date End Date ASPIRIN ORAL Take 81 mg by mouth daily. Take 0 with food for heart health. documented as of this encounter Progress Notes Nicki Holt D.N.P., CJairoN.P. - 11/04/2012 2:24 PM CDT [id number] CHIEF COMPLAINT/REASON FOR VISIT 1. Review medications. 2. Right shoulder pain. HISTORY OF PRESENT ILLNESS The patient is a 67-year-old female who presents to the clinic today in which she indicates that shewould like to follow-up on her previous laboratory results. Though we have previously discussed thelaboratory results with her, she would like to just briefly review them. She is aware that her lastTSH was noted to be mildly elevated at 5.55 in which her levothyroxine was increased from 25 mcg to 50 mcg in which she is next due a total of 6 weeks duration for reevaluation. Given her overall improvement to her hemoglobin A1c and increase in her cholesterols it was advised she could discontinue her metformin as we will trial her without the medication, though she was to reinstate her [id number] mg by mouth daily given her increase in LDL from 49 when she was on simvastatin 10 mg by mouth daily in May of 2012, rechecked in October of 2012 without her simvastatin noted to be 142. She also indicates that she is aware that there was a very small amount of blood in her urine when her urine was checked on 10/21/2012 and is wondering if there is any further concern regarding this. She also has a history of rotator cuff tear to the right shoulder in which she questions whether or not she should pursue surgery at this time. PAST MEDICAL/SURGICAL HISTORY Reviewed. Please see chart. FAMILY HISTORY Reviewed. Please see chart. CURRENT MEDICATIONS Reviewed. Please see chart. ALLERGIES Reviewed. Please see chart. PHYSICAL EXAMINATION GENERAL: Patient is an alert, well-nourished 67-year-old female who appears to be in no acute distress. HEAD: Normocephalic, atraumatic. Remainder of further examination deferred at this time. IMPRESSION/REPORT/PLAN 1. History of hypothyroidism/ 2. Right shoulder pain. PLAN: 1. History of hypothyroidism: Presently at this time I reviewed all labs with the patient. Presently, I continue to encourage the patient with the continued current treatment plan and reassured her we will continue monitoring her laboratory results. These overall findings were discussed at length with the patient. The patient felt comfortable with this treatment plan. 2. Right shoulder pain: I did spend some time talking about the anatomy and physiology of the shoulder and also her overall medical care. Indicated to the patient that I do encourage her to follow-up with Orthopedics for further surgical repair as discussed with a previous orthopedic surgeon via consultation with the patient. The patient stated understanding the plan as she denied having any further questions. Patient ambulated out of the clinic in no acute distress. Note that greater than 15 minutes was spent in consultation with the patient. Patient Education Ready to learn No apparent learning barriers were identified Learning preferences include listening Explained diagnosis and treatment plan Patient/Child/Caregiver expressed understanding of the content Nicki Holt D.N.P./NereidaNLizbeth/shi Electronically Signed By: NICKI HOLT DNP, FNP On: 11/05/2012 07:59 AM Source: [facility] MHSDOLBEYNONRADSYS Document Id: [id number] documented in this encounter Miscellaneous Notes Miscellaneous - Nicki Holt D.N.P., C.N.P. - 11/04/2012 3:50 PM CDT Ambulatory Depart Summary [address] [address] Visit Information Name: ELIDASTEVEN ARCHIE MAI [facility] Number: [id number] Visit Date: 11/04/2012 15:50:45 Attending Provider: NICKI HOLT DNP, FNP Primary Care Provider: NICKI HOLT DNP, FNP ELIDASTEVENARCHIE has been given the following list of medications: Your Medications It is important to take your medications as directed. Use a pill box or chart to help remind you to take your medications. Please let your doctor or nurse know if you have problems taking your medications. Medication/Strength Dose Route Frequency Indications/Special Instructions/Comments/Notes simvastatin (simvastatin 10 mg oral tablet) 10 mg Oral once a day (at bedtime) Take for high cholesterol. levothyroxine (levothyroxine 50 mcg (0.05 mg) oral tablet) 50 mcg Oral once a day Take 30-45 minutesbefore meal or other medications aspirin (aspirin 81 mg oral tablet) 81 [...] your provider for clarification. Additional Information: Source: [facility] POWERCHART Document Id: [id number] Miscellaneous - Nicki Holt D.N.P., C.N.P. - 11/04/2012 3:50 PM CDT Ambulatory Patient Summary [place] [id number] Visit Information Name: ARCHIE BAZAN [facility] Number: [id number] Current Date: 11/04/2012 15:50:46 Physicians Attending Provider: NICKI HOLT DNP, FNP Primary Care Provider: NICKI HOLT DNP, FNP Your Medications Here is a list of your medications. It is important to take your medications as directed. Use a pillbox or chart to help remind you to take your medications. Please let your doctor or nurse know if you have problems taking your medications. Medication/Strength Dose Route Frequency Indications/Special Instructions/Comments/Notes simvastatin (simvastatin 10 mg oral tablet) 10 mg Oral once a day (at bedtime) Take for high cholesterol. levothyroxine (levothyroxine 50 mcg (0.05 mg) oral tablet) 50 mcg Oral once a day Take 30-45 minutesbefore meal or other medications aspirin (aspirin 81 mg oral tablet) 81 [...] Upcoming Appointments Date Time Location Reason Provider 11/18/2012 09:15 [facility] Family Med F/U - HEALTH BULLET ASSEMBLY PRESS SETTER OPERATOR [facility] Health Barrel Planer Your Goals/Additional instructions: Source: [facility] POWERCHART Document Id: [id number] Miscellaneous - Vitaliy Darnell, L.P.N. - 11/04/2012 2:31 PM CDT Adult Stucco Worker Intake/History Adult Stucco Worker Intake/History Entered On: 11/04/2012 14:39 CDT Performed On: 11/04/2012 14:31 CDT by VITALIY DARNELL PROJECT CONTROLLER Intake Chief Complaint : Consult on right shoulder Temperature Core : 36.2 DegC(Converted to: 97.2 DegF) (LOW) Peripheral Pulse Rate : 68 /min Respiratory Rate : 16 /min Heart Rhythm : Regular Systolic Blood Pressure : 116 mmHg Diastolic Blood Pressure : 80 mmHg NIBP Mean : 92 mmHg BP Location : Right upper extremity Blood Pressure Cuff Size : Regular Height : 161.0 cm(Converted to: 5 ft 3 inch(es), 63.39 inch(es)) Actual Weight : 81.9 kg(Converted to: 180 lb 9 oz) Weight Source : Standing scale Dosing Weight Clinic : 81.9 kg Clinic BSA : 1.91 Body Mass Index : 31.6 kg/m2 VITALIY DARNELL [facility] - 11/04/2012 14:31 CDT General Info Information Given By : Patient Languages : Greek VITALIY DARNELL [facility] 11/04/2012 14:31 CDT Subjective Pain Symptoms : No VITALIY DARNELL [facility] - 11/04/2012 14:31 CDT Dependent Habits Tobacco Use/Currently Using : No Tobacco Use/Last 12 months : No Exposure to Tobacco Smoke : Care provider denies smoking in home Smoking Status : Never smoker VIATLIY DARNELL [facility] - 11/04/2012 14:31 CDT Tobacco Use Grid Last Use : Never VITALIY DARNELL [facility] - 11/04/2012 14:31 CDT Alcohol Use : No VITALIY DARNELL [facility] - 11/04/2012 14:31 CDT Caffeine Use Grid Caffeine Use : Current Type : Tea Frequency : Occasionally VITALIY DARNELL [facility] - 11/04/2012 14:31 CDT Recreational Drug Use Grid Drug Use : None VITALIY DARNELL [facility] 11/04/2012 14:31 CDT [facility]: [facility] Pharmaceuticals, IncCHART Document Id: [id number] CDT!40 documented in this encounter Plan of Treatment Not on filedocumented as of this encounter Visit Diagnoses Not on filedocumented in this encounter
--- OUTSIDE RECORDS SUMMARY | 2021-09-05 08:02 | XMS_ITS | Encounter Summary ---
:1945 Author Organization [facility] Address [address] [place] [address] Care Team Providers Name Role Phone Unavailable Primary Care Provider Unavailable Encounter Details Date Type Department Care Team Description 10/21/2012 Hospital Encounter HX [facility] Nicki Sosa, MAL, C.N.P., D. N.P. [address] [place] [phone] (Wo rk) Social History Tobacco [...] Progress Notes Conversion, Historical Provider Ser - 10/21/2012 9:05 AM CDT [id number] HEALTH & WELLNESS COACHING VISIT Referring Physician Maritza Lucas.N.P./F.N.P Patient was seen in [facility] for follow-up wellness coaching visit around the area of diabetes and stress management on 10/21/2012. CHIEF COMPLAINT/REASON FOR VISIT Follow-up wellness coaching visit. OBJECTIVE INFORMATION Her weight is at 80.5 kg which is 177.1 pounds which is 0.44 pounds down from last session. Marcial [place] the cabin Thursday [place] Thursday and was able to successfully avoid red meatsthroughout the whole weekend. She also feels that that she was in taking food a little bit more often as [place] the [place] the whole [place] but did managed weight level. She also is interested in looking at decreasing the amount of nuts this week along with her overall calorie amount. She feels that she needs to get back on schedule in including relaxing more in doing so on a regular basis. She also reports doing a few walks and while at the cabin and also got in a walk yesterday as well. She feels that when she does her relaxation activities and CDs that she often times will fall asleep. Wediscussed that this is actually a successful thing to do and for her to fall asleep while doing relaxation therapy is quite alright and actually encouraged. She also shared that she is continuing to see the chiropractor for a light massage and adjustment for her neck. Her goal weight she identified at 175 pounds. She wants to complete and then we will discuss her next goal that she would like to set forth. She has also been cleared by her primary care physician Nicki Anthony to get off of all of her diabetes medication at this time. She will continue on with her cholesterol medication as her triglycerides have raised since her being off the cholesterol medicine. We will continue to work on stress management tools and also increasing her exercise amount to see if that will help with her increasing her cholesterol in a positive way. FOLLOW-UP PLAN We will continue to see Marcial every week for the month of October and then at that time we will switch to every other week for our continued 30-minute appointment time. Annie Millan Electronically Signed By: ANNIE PÉREZ On: 10/28/2012 05:03 PM Source: [facility] MHSDOLBEYNONRADSYS Document Id: [id number] documented in this encounter Plan of Treatment Not on filedocumented as of this encounter Visit Diagnoses Not on filedocumented in this encounter
--- OUTSIDE RECORDS SUMMARY | 2021-09-05 08:02 | XMS_ITS | Encounter Summary ---
:1945 Author Organization [facility] Address [address] [place] [address] Care Team Providers Name Role Phone Unavailable Primary Care Provider Unavailable Encounter Details Date Type Department Care Team Description 09/02/2012 Hospital Encounter HX [facility] Nicki Anthony, MAL, C.N.P., D.N.P. [address] [place], [place] [phone] (Wo rk) Social History [...] by mouth daily. Take 0 with food [employer] [facility]. documented as of this encounter Plan of Treatment Not on filedocumented as of this encounter Procedures Procedure Name Priority Date/Time Associated Comments Diagnosis URINALYSIS, ROUTINE Routine 09/02/2012 9:53 AM R esults for this CDT procedure are i n the results section. URINE MICROSCOPIC Routine 09/02/2012 9:53 AM Res ults for this CDT procedure are i n the results section. documented in this encounter Results Urine Microscopic (09/02/2012 9:53 AM CDT) [facility] Method Time Signature HXUr WBC 5-10 0 - 2 POWERCHART Red Blood Cell 0-2 0 - 2 POWERCHART Clump, Urine HXUr Bacteria Moderate POWERCHART HXUr Epithelial Occasional POWERCHART Comment: Occasional Squamous and few tra nsitional and renal tubular epithelial cells present. HX Ur Casts 0-2 hyline casts present. PO WERCHART Specimen Anatomical Collection Method Collection Time Receive d Time (Source) Location / / Volume Laterality Urine 09/02/2012 9:53 09/02/2012 AM CDT 9:53 AM CDT Sharon Montes N.P. LAB URINE ORDERABLES Performing Organization Address City/[facility] Phon e Number POWERCHART Urinalysis, Routine (09/02/2012 9:53 AM CDT) [facility] gist Method Time Signature HXUr Color Yellow Yellow POWERCHART Appearance Clear Clear POWERCHART Glucose Negative Negative POWERCHART HXBILIRUBIN Negative Negative POWERCHART Ketones, QL(U) Negative Negative POWERCHART Specific 1.020 1.000 - POWERCHART [place], POCT, U 1.030 pH, POCT, Urine 5.5 5.0 - 8.0 POWERCHART Protein, Ur, Dip Negative Negative POWERCHART Urobilinogen 0.2 POWERCHART HXNITRITE Negative Negative POWERCHART HXBLOOD Trace-lysed POWERCHART Leukocyte 2+ Negative POWERCHART Esterase Source Clean Void POWERCHART Urine Specimen (Source) Anatomical Collection Method Collection Time Re ceived Time Location / / Volume Laterality Urine 09/02/2012 9:53 AM CDT Sharon Montes N.P. LAB URINE ORDERABLES Performing Organization Address [facility] Phon e Number POWERCHART documented in this encounter Visit Diagnoses Not on filedocumented in this encounter
--- OUTSIDE RECORDS SUMMARY | 2021-09-05 08:02 | XMS_ITS | Encounter Summary ---
:1945 Author Organization [facility] Address [address] [place] [address] Care Team Providers Name Role Phone Unavailable Primary Care Provider Unavailable Encounter Details Date Type Department Care Team Description 08/26/2012 Hospital Encounter HX [facility] Nicki Anthony, MAL, C.N.P., D. N.P. [address] [place] [address] (Wo rk) Social History Tobacco [...] mouth daily. Take 0 with food for [employer] health. documented as of this encounter Progress Notes Conversion, Historical Provider Ser - 08/26/2012 8:59 AM CDT [id number] HEALTH & WELLNESS COACHING Referring Physician: Nicki Anthony. CHIEF COMPLAINT/REASON FOR VISIT Follow-up wellness coaching visit around the area of Diabetes and weight loss. SESSION OVERVIEW Patient reviews having a good August. Did lots of walking and really ate well. Also spent a lot of time with family. She discussed some areas of struggle for her have been stress management and emotional eating. Some things happened in her family with her great-granddaughter that shehad an accident and she has been noticing that since that time she has been using food as a coping mechanism to deal with the stress and anxiety around the health situation. She noticed that when she started to use sugar again she feels that she can't stop once she gets moving with having sugar in her diet. She reports having salty chips, ice cream and also a lot of candy bars. Her weight is up 1. 1 pounds this week from last week and she attributes that weight gain to the stress in eating. We discussed ways in which she could use stress management and used other ways of coping rather than using food. She did identify several ways that she could do this, one being relaxing on the swing on herporch, doing the relaxation CD, going on a walk, talking to friends, listening to music, quilting orsewing and also just doing some deep breathing. OBJECTIVE INFORMATION Her weight is 81.8 kg which is at 179.96 pounds. This is a weight gain of 1.1 pounds this week. NEW GOAL SET This week she made a goal for the next 3 weeks that she will be down 1 pound each week. She is going to do this through increase in exercise frequency and also monitoring her nutritional choices to make better choices cutting out refined sugars and carbs and just eating healthy more simple from the garden. PLAN We will follow up with her in a week's time and continue to go for this goal for a 1-pound a week for the next three weeks. Annie Millan Electronically Signed By: ANNIE PÉREZ On: 08/27/2012 04:00 PM Source: [facility] MHSDOLBEYNONRADSYS Document Id: [id number] documented in this encounter Plan of Treatment Not on filedocumented as of this encounter Visit Diagnoses Not on filedocumented in this encounter
--- OUTSIDE RECORDS SUMMARY | 2021-09-05 08:02 | XMS_ITS | Encounter Summary ---
:1945 Author Organization [facility] Address [address] [place] [address] Care Team Providers Name Role Phone Unavailable Primary Care Provider Unavailable Encounter Details Date Type Department Care Team Description 09/04/2012 Hospital Encounter HX [facility] [place] Gail Garrison M.D. [address] [place] [phone] (Wo rk) Social History Tobacco Use [...] Sign Reading Time Taken Comments Blood Pressure 120/66 09/04/2012 10:15 AM CDT Pulse 64 09/04/2012 10:15 AM CDT Temperature - - Respiratory Rate 16 09/04/2012 10:15 AM CDT Oxygen Saturation - - Inhaled Oxygen Concentration - - Weight - - Height - - Body Mass Index - - documented in this encounter Medications at Time of Discharge Medication Sig Dispensed Refills Start Date End Date ASPIRIN ORAL Take 81 mg by mouth daily. Take 0 with food for heart health. documented as of this encounter Progress Notes Gail Crotez M.D. - 09/04/2012 10:04 AM CDT [id number] CHIEF COMPLAINT/REASON FOR VISIT Question sinus infection. HISTORY OF PRESENT ILLNESS Lowering is a 67-year-old female who states that for the past 1 to 1 1/2 weeks she has hada head cold with a cough, nasal congestion and has not involved pain in her left cheek. She has hadno headache or fevers. She has tried Mucinex and gargling some salt water, but it seems to be getting a little bit worse. She also reports that she is on ciprofloxacin for a urinary tract infection but she states her symptoms are not getting better and may be getting a little bit worse. Her urine was cultured 2 days ago. CURRENT MEDICATIONS Current medications reconciled. New medicine today is Ciprofloxacin 500 mg by mouth 2 times a day for a total of 7 days. ALLERGIES Zithromax. Benicar. SYSTEMS REVIEW Review of systems as per history of present illness. VITAL SIGNS Temperature is 36.2, pulse is 64 beats per minute. Respiratory rate is 16 breaths per minute, bloodpressure is 120/66. Oxygen saturation is 98% on room air. PHYSICAL EXAMINATION GENERAL: The patient is alert and oriented, in no acute distress. HEENT: TMs are clear bilaterally. Right nasal mucosa is mildly erythematous. Left nasal mucosa iserythematous and swollen. She has no tenderness over the bilateral frontal or right maxillary sinus, but she does have tenderness over her left maxillary sinus. Oral mucosa is moist. No oral pharyngeal erythema. NECK: Neck is supple. No lymphadenopathy. CARDIOVASCULAR: Regular rate and rhythm. Normal S1 and S2; no murmurs, rubs or gallops. LUNGS: Clear to auscultation bilaterally. IMPRESSION/REPORT/PLAN Sinus infection. We discussed that I would not treat her sinus infection at this point because it has not been going on long enough, but she is on ciprofloxacin for a potential bladder infection whichdoes not seem to be improving. We did review her culture which showed greater than 100,000 colonies of mixed ismael. I stated that with the mixed ismael it is hard to know which antibiotic would work best, but it may be worthwhile to increase the dose of the ciprofloxacin that she is on so we will go up to 500 mg twice daily for a week. Patient voices understanding. PATIENT EDUCATION: Ready to learn No apparent learning barriers were identified Learning preferences include listening Explained diagnosis and treatment plan Patient/Child/Caregiver expressed understanding of the content Gail Gabriel M.D./arnol Electronically Signed By: GAIL VILLAR MD On: 09/14/2012 09:09 AM Source: [facility] MHSDOLBEYNONRADSYS Document Id: [id number] documented in this encounter Miscellaneous Notes Miscellaneous - Vitaliy Darnell LJairoPJairoN. - 09/06/2012 7:18 PM CDT General Message Document Contains Addenda Addendum by VICKEY HOLT DNP, FNP on 07 September 2012 10:56:37 CDT noted. From: VITALIY DARNELL LPN To: VICKEY HOLT DNP, FNP; Sent: 09/06/2012 19:18:21 CDT Subject: General Message Spoke Archie regarding MRI results and seeing Ortho. Archie would like to go see Dr Velasco in [place]. She heard is really good. Archie is gone on vacation 09/07/12-. Will set up her appointmentfor the and will leave information on answering maching per her request. Source: [facility] POWERCHART Document Id: [id number] Miscellaneous - Gail Cortez M.D. - 09/04/2012 10:57 AM CDT Ambulatory Patient Summary [id number] [place] [address] Visit Information Name: ARCHIE BAZAN [facility] Number: [id number] Current Date: 09/04/2012 10:57:39 Physicians Attending Provider: GAIL VILLAR MD Primary Care Provider: VICKEY HOLT DNP, FNP Your Medications Here is a list of your medications. It is important to take your medications as directed. Use a pillbox or chart to help remind you to take your medications. Please let your doctor or nurse know if you have problems taking your medications. Medication/Strength Dose Route Frequency Indications/Special Instructions/Comments/Notes ciprofloxacin (Cipro 500 mg oral tablet) 500 mg Oral two times a day for 3 Days metFORMIN (metformin 1000 mg oral tablet, [...] Upcoming Appointments Date Time Location Reason Provider 09/16/2012 08:45 [facility] FOLLOW UP [facility] 09/23/2012 08:45 [facility] LIFESTYLE [facility] 09/30/2012 09:45 [facility]IFEST[facility] 10/07/2012 09:45 [facility]IF[facility] 10/14/2012 09:45 [facility]IF[facility] Your Goals/Additional instructions: Source: [facility] POWERCHART Document Id: [id number] Miscellaneous - Gail Cortez M.D. - 09/04/2012 10:57 AM CDT Ambulatory Depart Summary [address] [address] Visit Information Name: ELIDASTEVENARCHIE [facility] Number: [id number] Visit Date: 09/04/2012 10:57:38 Attending Provider: GAIL VILLAR MD Primary Care Provider: VICKEY HOLT DNP, PUBLISHER ASSISTANT ELIDASTEVENARCHIE has been given the following list of medications: Your Medications It is important to take your medications as directed. Use a pill box or chart to help remind you to take your medications. Please let your doctor or nurse know if you have problems taking your medications. Medication/Strength Dose Route Frequency Indications/Special Instructions/Comments/Notes ciprofloxacin (Cipro 500 mg oral tablet) 500 mg Oral two times a day for 3 Days metFORMIN (metformin 1000 mg oral tablet, [...] your provider for clarification. Additional Information: Source: [facility] POWERCHART Document Id: [id number] Miscellaneous - Vitaliy Darnell L.P.N. - 09/04/2012 10:15 AM CDT Adult Capacity Analyst Intake/History Adult Capacity Analyst Intake/History Entered On: 09/04/2012 10:20 CDT Performed On: 09/04/2012 10:15 CDT by VITALIY DARNELL LPN Intake Chief Complaint : Head cold, face pressure, cheeks hurt, x1-1.5 wks Temperature Core : 36.2 DegC(Converted to: 97.2 DegF) (LOW) Peripheral Pulse Rate : 64 /min Respiratory Rate : 16 /min Heart Rhythm : Regular Systolic Blood Pressure : 120 mmHg Diastolic Blood Pressure : 66 mmHg NIBP Mean : 84 mmHg BP Location : Left upper extremity Blood Pressure Cuff Size : Regular SpO2 : 98 % Oxygen Therapy : Room air Weight Source : Other: refused VITALIY DARNELL LPN - 09/04/2012 10:15 CDT General Info Information Given By : Patient Languages : [place] VITALIY DARNELL LPN - 09/04/2012 10:15 CDT Subjective Pain Symptoms : No VITALIY DARNELL LPN - 09/04/2012 10:15 CDT Dependent Habits Tobacco Use/Currently Using : No Tobacco Use/Last 12 months : No Tobacco Use/Advised to Quit : No Exposure to Tobacco Smoke : Care provider denies smoking in home Smoking Status : Never smoker VITALIY DARNELL LPN - 09/04/2012 10:15 CDT Tobacco Use Grid Last Use : Never VITALIY DARNELL LPN - 09/04/2012 10:15 CDT Alcohol Use : No VITALIY DARNELL LPN - 09/04/2012 10:15 CDT Caffeine Use Grid Caffeine Use : Current Type : Tea Frequency : Occasionally VITALIY DARNELL LPN - 09/04/2012 10:15 CDT Recreational Drug Use Grid Drug Use : None VITALIY DARNELL LPN - 09/04/2012 10:15 CDT [facility] Document Id: [id number]!38 documented in this encounter Plan of Treatment Not on filedocumented as of this encounter Visit Diagnoses Not on filedocumented in this encounter
--- OUTSIDE RECORDS SUMMARY | 2021-09-05 08:02 | XMS_ITS | Encounter Summary ---
:1945 Author Organization [facility] Address [address] [place] [address] Care Team Providers Name Role Phone Unavailable Primary Care Provider Unavailable Encounter Details Date Type Department Care Team Description 07/22/2012 Hospital Encounter HX [facility] [place] Nicki Anthony, MAL, C.N.P., D. N.P. [address] [place] [address] (Wo rk) Social History Tobacco [...] Progress Notes Conversion, Historical Provider Ser - 07/22/2012 10:09 AM CDT [id number] HEALTH AND WELLNESS COACHING The patient was seen at [facility] in [place] on the date of 07/22/2012 around the area of diabetes and weight loss. CHIEF COMPLAINT/REASON FOR VISIT Follow-up wellness coaching visit. PHYSICAL EXAMINATION Her weight was 82.2 kg, which is 180.84 pounds. This is down 1.32 pounds from last week. SESSION SUMMARY Marcial reported that she substituted a hot dog this week with an egg salad sandwich and also was able to increase her water intake by drinking a pitcher of water daily instead of using soda or sugary snacks. She also reported doing her relaxation CD a few times and has noticed that this affects her overall mood and demeanor. She did get in some exercise as well with gardening by pulling grass and weeds during the week. NEW GOALS SET: 1. Will continue to go forward on that 1 pound weight loss for weekly. 2. Continue to eat healthy steering clear of refined carbs and processed sugars. FOLLOW-UP PLAN We will continue to see the patient weekly meeting with her wellness goals. Annie Miramontes/kena Electronically Signed By: ANNIE MIRAMONTES On: 08/23/2012 10:33 AM Source: [facility] MHSDOLBEYNONRADSYS Document Id: [id number] documented in this encounter Plan of Treatment Not on filedocumented as of this encounter Visit Diagnoses Not on filedocumented in this encounter
--- OUTSIDE RECORDS SUMMARY | 2021-09-05 08:02 | XMS_ITS | Encounter Summary ---
:1945 Author Organization [facility] Address [address] [place] [address] Care Team Providers Name Role Phone Unavailable Primary Care Provider Unavailable Encounter Details Date Type Department Care Team Description 11/16/2012 Hospital Encounter [facility]X [facility] [place] Vickey Holt, MAL, C.N.P., D. N.P. [address] [place] [address] (Wo rk) Social History Tobacco [...] Taken Comments Blood Pressure - - Pulse 68 11/16/2012 8:50 AM CDT Temperature - - Respiratory Rate 16 11/16/2012 8:50 AM CDT Oxygen Saturation - - Inhaled Oxygen Concentration - - Weight 81.1 kg (178 lb 12.7 oz) 11/16/2012 8:50 AM CDT Height 162.3 cm (5' 3.9) 11/16/2012 8:50 AM CDT Body Mass Index 30.79 11/16/2012 8:50 AM CDT documented in this encounter Medications at Time of Discharge Medication Sig Dispensed Refills Start Date End Date ASPIRIN ORAL Take 81 mg by mouth daily. Take 0 with food for heart health. documented as of this encounter H&P Notes Vickey Holt, D.N.P., C.N.P. - 11/16/2012 8:36 AM CDT [id number] CHIEF COMPLAINT/REASON FOR VISIT Preoperative physical examination. HISTORY OF PRESENT ILLNESS The patient is a 67-year-old female who presents to the clinic today for a routine preoperative examination for right shoulder rotator cuff repair that she is going to be undergoing on 11/23/[address] Velasco through [facility] in [place]. She otherwise indicates that she is doing quite well and denies having any other further concerns or issues at this time. PAST MEDICAL/SURGICAL HISTORY MEDICAL: Anxiety since 1987. Hyperlipidemia since 2004. Hypothyroidism since 2012. Type 2 diabetes mellitus since 2007. Osteoarthritis. Osteoporosis. Palpitations since 2012. Renal calculi in 2011. Rosacea since 2006. Transient ischemic attack in 2007. SURGICAL: Appendectomy in 1959. Breast biopsy in 1986. in 1964 and 1968. Umbilical hernia repair in 1997 and 2000. FAMILY HISTORY Mother at 50 years of age secondary to breast cancer. Father at 68 years of age secondary to coronary artery disease and lung cancer. One brother with a history of prostate cancer and type 2 diabetes mellitus. Another brother with a history of type 2 diabetes mellitus. SOCIAL HISTORY The patient is presently , 2, para 2, currently retired. She has no history of smoking. She denies any alcohol or illicit drug usage. ALLERGIES Azithromycin. Benicar. MEDICATIONS Simvastatin 10 mg by mouth daily. Levothyroxine 50 mcg by mouth daily. Aspirin 81 mg by mouth daily. Xanax 0.5 mg by mouth every 8 hours as needed for anxiety. Clobetasol 0.05% topical cream to apply to the affected area twice a day as needed. SYSTEMS REVIEW Negative for constitutional, eyes, ENT, respiratory, skin, CVS, GI, urinary, period, musculoskeletal, neurologic, endocrine (with history of hypothyroidism and diabetes mellitus), mental health, and lymphatic. PHYSICAL EXAMINATION GENERAL: The patient is alert and oriented times 3. HEAD: Normocephalic, atraumatic. PUPILS: Pupils equal, round, and reactive to light and accommodation OROPHARYNX: [place] and moist. TMs: Bilateral tympanic membranes are clear. Bony landmarks noted and within normal limits. NARES: Patent. No erythema or drainage noted. NECK: No anterior or posterior lymphadenopathy noted. HEART: Regular. S1, S2. No murmurs, rubs or gallops noted. LUNGS: Clear to auscultation. No prolonged expiratory phases, wheezing, rales or rhonchi noted. SKIN: Without unusual rashes or suspicious lesions ABDOMEN: Bowel sounds are positive in all 4 quadrants. No hepatosplenomegaly is noted. No reboundtenderness, guarding, or rigidity is noted. VITAL SIGNS Temperature 36 degrees centigrade. Pulse 68 beats per minute. Respirations 16 per minute. Oxygen saturation is 97% room air. Height 162.3 cm. Weight 81.1 kg. BMI 30.79 kg per meter squared. DIAGNOSTICS: 1. ECG was obtained in which normal sinus rhythm was noted with a ventricular rate 66 beats per minute, MO interval 142 ms, QRS duration 82 ms, and QT 416 ms.\ 2. Obstructive sleep apnea risk score noted to be a total of 2 with a neck circumference at 38 cm. LABORATORY: WBC 7.4. Hemoglobin 12.0. Lymphocyte 17%. Differential is otherwise completely unremarkable. Sodium 139. Potassium 4.7. Creatinine 0.89. GFR greater than 60. Blood sugar 158. AST 20. ALT 17 (previous hemoglobin A1c on 10/21/2012 noted to be 6.46% and 6.87% on 09/14/2012). IMPRESSION/REPORT/PLAN Unremarkable preoperative physical examination, patient presently cleared for anesthesia. PLAN: Discussed overall findings at length with the patient. Presently at this time I feel the patient is adequately cleared for anesthesia. Currently at this time, we will take cardiac risks into consideration as currently she is not on any beta blockade therapy. There are no pulmonary, DVT, delirium pre- or postoperative management that is required. Presently at this time the patient's diabetes is being controlled through diet with fairly adequately controlled blood sugars. I do not expect any pre- or postoperative management will be required for her type 2 diabetes mellitus. I recommend that all [id number] medication be discontinued 1 week prior to surgery. These overall findings were discussed at length with the patient. The patient stated understanding the plan as she otherwisedenied having any further questions or concerns. The patient ambulated out of the clinic in no acute distress. Patient Education Ready to learn No apparent learning barriers were identified Learning preferences include listening Explained diagnosis and treatment plan Patient/Child/Caregiver expressed understanding of the content Vickey Holt D.N.P./F.N.P/hlc Electronically Signed By: VICKEY HOLT DNP, FNP On: 11/16/2012 11:01 AM Source: [facility] MHSDOLBEYNONRADSYS Document Id: [id number] documented in this encounter Miscellaneous Notes Miscellaneous - Vickey Holt D.N.P., C.N.P. - 11/16/2012 10:11 AM CDT Ambulatory Depart Summary [address] [address] Visit Information Name: BENI MARCIAL MAI [facility] Number: [id number] Visit Date: 11/16/2012 10:11:07 Attending Provider: VICKEY HOLT DNP, FNP Primary [...] your provider for clarification. Additional Information: Source: [facility] POWERCHART Document Id: [id number] Miscellaneous - Vickey Holt D.N.P., C.N.P. - 11/16/2012 10:11 AM CDT Ambulatory Patient Summary [address] [place] [address] Visit Information Name: MARCIAL BAZAN [facility] Number: [id number] Current Date: 11/16/2012 10:11:08 Physicians Attending Provider: VICKEY HOLT DNP, FNP [...] Date Time Location Reason Provider 11/18/2012 09:15 [facility] Family Med F/U - HEALTH CONSULTANT [facility] Health [place] Manager Your Goals/Additional instructions: Source: [facility] POWERCHART Document Id: [id number] Miscellaneous - Vickey Holt, Maritza.N.P., C.N.P. - 11/16/2012 9:04 AM CDT Normal Results Letter 16 November 2012 MARCIAL BAZAN [address] [place] [address] [phone] Dear MARCIAL BAZAN, I am pleased to report that your results from the following diagnostic test(s) are normal. Please follow up with us as we discussed during your visit or sooner if you have any concerns. If you have questions or concerns, please do not hesitate to call our office. Result Name Current Result Normal Range Hgb (g/dL) 12.0 11/16/2012 12.0 - 15.5 Hct (%) 37.2 11/16/2012 34.9 - 44.5 WBC (x10(9)/L) 7.4 11/16/2012 3.4 - 10.5 RBC (x10(12)/L) 4.07 11/16/2012 3.90 - 5.03 MCV (fL) 91.4 11/16/2012 82.0 - 98.0 RDW (%) 13.1 11/16/2012 11.9 - 15.5 Platelet (x10(9)/L) 178 11/16/2012 150 - 450 Neutro % (%) 74.6 11/16/2012 42.0 - 77.0 Lymph % (%) (L) 17.0 11/16/2012 23.0 - 44.0 [place] % (%) 5.9 11/16/2012 2.0 - 18.0 Eos % (%) 2.0 11/16/2012 1.0 - 5.0 Baso % (%) 0.5 11/16/2012 0.0 - 1.0 Neutro Absolute (10(9)/L) 5.52 11/16/2012 1.70 - 7.00 Lymph Absolute (x10(9)/L) 1.26 11/16/2012 0.90 - 2.90 [place] Absolute (x10(9)/L) 0.44 11/16/2012 0.30 - 0.90 Eos Absolute (x10(9)/L) 0.15 11/16/2012 0.05 - 0.50 Baso Absolute (x10(9)/L) 0.04 11/16/2012 0.00 - 0.30 Differential? Auto 11/16/2012 Sincerely, VICKEY HOLT [address] [place] [address] Electronic Signature Electronically Signed By: VICKEY HOLT DNP, FEEDER ASSOCIATE On: 16 November 2012 This document has images extracted. Source: [facility] POWERCHART Document Id: [id number] Electronically signed by Sae [facility] Seed Analysis Laboratory Assistant [id number] at 07/16/2016 7:03 PM CDT Miscellaneous - Sylvia Darnell, L.P.N. - 11/16/2012 8:50 AM CDT Adult Grounds Restoration Specialist Intake/History Adult Grounds Restoration Specialist Intake/History Entered On: 11/16/2012 8:57 CDT Performed On: 11/16/2012 8:50 CDT by SYLVIA DARNELL HUB LEAD Intake Chief Complaint : Pre-op for right rotar cuff repair with Dr. Velasco in [place] on 11/23/12 Temperature Core : 36.0 DegC(Converted to: 96.8 DegF) (LOW) Peripheral Pulse Rate : 68 /min Respiratory Rate : 16 /min Heart Rhythm : Regular SpO2 : 97 % Oxygen Therapy : Room air Height : 162.3 cm(Converted to: 5 ft 4 inch(es), 63.90 inch(es)) Actual Weight : 81.1 kg(Converted to: 178 lb 13 oz) Weight Source : Standing scale Dosing Weight Clinic : 81.1 kg Clinic BSA : 1.91 Body Mass Index : 30.79 kg/m2 Neck Circumference : 39.5 cm(Converted to: 16 inch(es)) SYLVIA DARNELL LPN - 11/16/2012 8:50 CDT General Info Information Given By : Patient Languages : Malagasy SYLVIA DARNELL LPN - 11/16/2012 8:50 CDT Subjective Pain Symptoms : No SYLVIA DARNELL LPN - 11/16/2012 8:50 CDT Dependent Habits Tobacco Use/Currently Using : No Tobacco Use/Last 12 months : No Tobacco Use/Advised to Quit : No Exposure to Tobacco Smoke : Care provider denies smoking in home Smoking Status : Never smoker SYLVIA DARNELL LPN - 11/16/2012 8:50 CDT Tobacco Use Grid Last Use : Never SYLVIA DARNELL LPN - 11/16/2012 8:50 CDT Alcohol Use : No SYLVIA DARNELL LPN - 11/16/2012 8:50 CDT Caffeine Use Grid Caffeine Use : Current Type : Tea Frequency : Occasionally SYLVIA DARNELL LPN - 11/16/2012 8:50 CDT Recreational Drug Use Grid Drug Use : None SYLVIA DARNELL LPN - 11/16/2012 8:50 CDT Source: [facility] POWERCHART Document Id: [id number] CDT!39 Miscellaneous - Sylvia Darnell L.P.N. - 11/16/2012 8:50 AM CDT Obstructive Sleep Apnea Obstructive Sleep Apnea Entered On: 11/16/2012 8:58 CDT Performed On: 11/16/2012 8:50 CDT by DARNELL, HETTIE L HUB LEAD JUAN Screening Known Obstructive Sleep Apnea : No - NOT diagnosed with JUAN ASCENCIOALEJANDRO Anderson HUB LEAD - 11/16/2012 8:50 CDT JUAN Assessment Do you have high blood pressure or have you been told to take medication for high blood pressure? : No Frequency of Snoring : Rarely (1-2 times per year) Frequency of Gasping, Choking, Snorting : Never Total Number of Historical Features : 0 Neck Circumference (cm) : 38/39 Total Sleep Apnea Clinical Score Calc : 2 SYLVIA DARNELL LPN - 11/16/2012 8:50 CDT Source: [facility] POWERCHART Document Id: [id number] CDT!10 documented in this encounter Plan of Treatment Not on filedocumented as of this encounter Procedures Procedure Name Priority Date/Time Associated Comments Diagnosis AUTOMATED Routine 11/16/2012 8:49 Results for this DIFFERENTIAL, B AM CDT procedure ar e in the results section. CBC WITH DIFFERENTIAL, Routine 11/16/2012 8:49 R esults for this B AM CDT procedure are i n the results section. COMPREHENSIVE Routine 11/16/2012 8:49 Results fo r this METABOLIC PANEL, S/P AM CDT procedu re are in the results section. documented in this encounter Results (ABNORMAL) Automated Differential (11/16/2012 8:49 AM CDT) [facility] gist Method Time Signature Neutro % 74.6 42.0 - POWERCHART 77.0 Lymphocytes % 17.0 (L) 23.0 - POWERCHART 44.0 HX [place] % 5.9 2.0 - 18.0 POWERCHART HX Eos % 2.0 1.0 - 5.0 POWERCHART HX Baso % 0.5 0.0 - 1.0 POWERCHART Absolute 5.52 1.70 - POWERCHART Neutrophils 7.00 109L Lymphocytes 1.26 0.90 - POWERCHART 2.90 X109L Monocytes 0.44 0.30 - POWERCHART 0.90 X109L Eosinophils 0.15 0.05 - POWERCHART 0.50 X109L Absolute 0.04 0.00 - POWERCHART Basophil 0.30 X109L Specimen Anatomical Collection Method Collection Time Receive d Time (Source) Location / / Volume Laterality Blood 11/16/2012 8:49 11/16/2012 AM CDT 8:49 AM CDT Vickey Holt APRN C.N.P., D.N.P. LAB BLOOD ADD- ON Performing Organization Address City/State/ZIP Code Phon e Number POWERCHART CBC with Differential (11/16/2012 8:49 AM CDT) P athologist Signature Leukocytes 7.4 3.4 - 10.5 POWERCHART X109L Erythrocytes 4.07 3.90 - POWERCHART 5.03 [id number] Hemoglobin 12.0 12.0 - POWERCHART 15.5 GDL Hematocrit 37.2 34.9 - POWERCHART 44.5 MCV 91.4 82.0 - POWERCHART 98.0 FL HX RDW 13.1 11.9 - POWERCHART 15.5 Platelet Count 178 150 - 450 POWERCHART X109L HXDifferential? Auto POWERCHART Specimen (Source) Anatomical Collection Method Collection Time Re ceived Time Location / / Volume Laterality Blood 11/16/2012 8:49 AM CDT Vickey Holt APRN C.N.P., D.N.P. LAB BLOOD ADD- ON Performing Organization Address City/State/ZIP Code Phon e Number POWERCHART (ABNORMAL) CMP (Comprehensive Metabolic Panel) (11/16/2012 8:49 AM CDT) Patholo gist Method Time Signature Anion Gap 12 10 - 20 POWERCHART MMOLL Alkaline 50 (L) 55 - 142 POWERCHART Phosphatase, S UL Alanine 17 15 - 37 POWERCHART Amniotransferase, LD UL Aspartate 20 12 - 31 POWERCHART Aminotransferase UL (AST), S Bilirubin, Total, S 0.3 0.1 - 1.0 POWERCHART MGDL BUN (Blood Urea 19 (H) 7 - 18 POWERCHART Nitrogen), S MGDL Chloride, S 104 100 - 108 POWERCHART MMOLL CO2 Total 27.9 23.0 - POWERCHART 29.0 MMOLL Creatinine, S 0.89 0.60 - POWERCHART 1.30 MGDL Total Protein, S 7.4 6.3 - 7.9 POWERCHART GDL Glucose 158 (H) 70 - 139 POWERCHART MGDL Calcium, Total, S 9.5 8.8 - POWERCHART 10.2 MGDL Sodium, S 139.0 135.0 - POWERCHART 145.0 MML Potassium, S 4.7 3.6 - 4.8 POWERCHART MMOLL Albumin, S 4.0 3.5 - 5.0 POWERCHART GDL HXeGFR (MDRD) >60 >=60 POWERCHART [id number] 2 eGFR Black/ >60 >=60 POWERCHART [place] [id number] 2 Specimen (Source) Anatomical Collection Method Collection Time Re ceived Time Location / / Volume Laterality Blood 11/16/2012 8:49 AM CDT Vickey Holt APRN, C.N.P., D.N.P. LAB BLOOD ADD- ON Performing Organization Address City/State/ZIP Code Phon e Number POWERCHART documented in this encounter Visit Diagnoses Not on filedocumented in this encounter
--- OUTSIDE RECORDS SUMMARY | 2021-09-05 08:02 | XMS_ITS | Encounter Summary ---
:1945 Author Organization [facility] Address [address] [place] [address] Care Team Providers Name Role Phone Unavailable Primary Care Provider Unavailable Encounter Details Date Type Department Care Team Description 08/06/2012 Hospital Encounter HX [facility] [place] Nicki Anthony, MAL, C.N.P., D. N.P. [address] [place] [address] (Wo rk) Social History Tobacco [...] Progress Notes Conversion, Historical Provider Ser - 08/06/2012 9:49 AM CDT [id number] HEALTH AND WELLNESS COACHING The patient was seen at [facility] in [place] for follow-up wellness coaching visit around the area of diabetes and stress reduction on 08/06/2012. CHIEF COMPLAINT/REASON FOR VISIT Follow-up wellness coaching visit. PHYSICAL EXAMINATION The patient was at 83.4 kg today, which is 183.48 pounds. This is 1.76 pounds up from last week. GOAL REVIEW: 1. Goal #1 was not successful in achieving a 1-pound weight loss goal for the week. 2. Goal #2 was 50% successful in using self-soothing relaxation techniques. 3. Goal #3 of walking 5 times a week was 100% successful. 4. Goal #4 would be around her relaxation CD 3 times a week. She did do 75% of this goal by listening to her CD 2 times. SESSION SUMMARY The patient reported that she has been active this week and is feeling more excited and inspired to move forward after she saw the doctor around her shoulder. She has been having some frozen shoulder and some pain in her right upper rotator cuff. She has also been using her journaling and relaxing more along with doing menu planning and feels that she is moving in the right direction and just needsto get back on track. We discussed what has been her setbacks and what she could do differently. She identified that sweets have been a real obstacle for her in being successful around weight loss and also managing her diabetes. She indicated that once she starts to eat sweets, she feels that she really gets a taste for them and wants more and more. Her approach to this would be to just eliminatesweets and refined carbohydrates from her diet and using natural foods and natural sweets instead ofitems with a high level of sugar in them. The patient also reports since doing more of the relaxation CD that she has not noticed any palpitations in the last several weeks, which she is very excited about. She also reports not having low blood sugar or any kind of shaky feeling, which is also a huge success for her. NEW GOALS SET 1. The patient would like to continue to set a goal for a 1-pound weight loss weekly. 2. Eat healthy snacks every 4 hours keeping her blood sugar up. 3. Eliminate sweets and baked goods from the home for the next few weeks. FOLLOW-UP PLAN We will continue see patient moving forward in her wellness goals. Annie Pérez/[facility] Electronically Signed By: ANNIE PÉREZ On: 08/23/2012 10:34 AM Source: [facility] MHSDOLBEYNONRADSYS Document Id: [id number] documented in this encounter Plan of Treatment Not on filedocumented as of this encounter Visit Diagnoses Not on filedocumented in this encounter
--- OUTSIDE RECORDS SUMMARY | 2021-09-05 08:02 | XMS_ITS | Encounter Summary ---
:1945 Author Organization [facility] Address [address] [place] [address] Care Team Providers Name Role Phone Unavailable Primary Care Provider Unavailable Encounter Details Date Type Department Care Team Description 08/17/2012 Hospital Encounter HX [facility] XRAY Provider, Histori joao Social History Tobacco Use Types Packs/Day Years [...]
--- OUTSIDE RECORDS SUMMARY | 2021-09-05 08:02 | XMS_ITS | Encounter Summary ---
:1945 Author Organization [facility] Address [address] [place] [address] Care Team Providers Name Role Phone Unavailable Primary Care Provider Unavailable Encounter Details Date Type Department Care Team Description 06/03/2012 Hospital Encounter HX [facility] Nicki Sosa, MAL, C.N.P., D. N.P. [address] [place] [address] (Wo rk) Social History Tobacco [...] Progress Notes Conversion, Historical Provider Ser - 06/03/2012 3:44 PM CDT [id number] HEALTH & WELLNESS COACHING REFERRING PHYSICIAN Nicki Anthony, D.N.P./F.N.P CHIEF COMPLAINT/REASON FOR VISIT Today, patient was seen on 06/03/2012 in the [facility] for wellness coaching around the area of Diabetes and weight loss. GOAL REVIEW Goal #1: Was 100% successful in her first goal of meal planning and healthy menu set up. Goal #2: Was 100% successful in maintaining her exercise, 1-mile on the treadmill. Actually she performed the exercises every day and additionally so did 8-times during the week. Goal #3: Was 100% successful in performing her relaxation CD exercise and actually went above and beyond again by performing it 3-times during the week. OBJECTIVE DATA Patent identified as far as taking care of herself a Level of a 6 out of 10 as far as her diabetes care and management. She is currently in the state where she would like to get to a 10 and currently is at a 6. She described a 10 looking like no processed foods or refined sugars, weighing out her portion sizes, exercising more, eating lots of vegetables and fresh fruits, having lean portions of protein like chicken, fish and turkey. Being able to relax more and also no snacking on chips or sugary sweets at night. She identified the first step in getting to this 10 as getting rid of the refined sugars and processed sugars in her diet. WEIGHT: Her weight today, is 85.6 kilograms which puts her at 188.71-pounds. She is currently up 0.22 pounds from last week. She attributes this to having a lot of social engagements with a lot of sweets and snacks. STRESS: She said that her stress level is lower this week and has had no panic attacks in the last3-weeks. She attributes this to doing regular exercise, eating better, managing her blood sugar levels and also listening to her relaxation CDs. SESSION SUMMARY Patient described that she has been able to be back on point with her exercise as her foot is feeling much better. She also went to the chiropractor for that. She is very motivated in taking care ofher Diabetes care and discussed her motivation around really wanting to bump up her healthy food anddrink choices this week. NEW GOALS SET Goal #1: To cut out all refined sugars and processed sugars this week and replace with natural fruits instead. She is rating this an 8 out of 10 for level of confidence of being able to complete this goal. She is rating this a 10 out of 10 for importance overall of this goal. Goal #2: To keep going with her walking every day 1-mile on the treadmill and also doing her relaxation CD 2 to 3-times a week. FOLLOW-UP PLAN We will follow-up with patient next week and we will continue to see weekly to help manage her bloodsugar levels and continue on with weight loss management. Annie Millan Electronically Signed By: ANNIE PÉREZ On: 06/14/2012 11:54 AM Source: [facility] MHSDOLBEYNONRADSYS Document Id: [id number] documented in this encounter Miscellaneous Notes Miscellaneous - Vitaliy Darnell L.P.N. - 06/03/2012 7:23 AM CDT Meaningful Use Influenza Exclusion Meaningful Use Influenza Exclusion Entered On: 06/03/2012 7:23 CDT Performed On: 06/03/2012 7:23 CDT by VITALIY DARNELL LPN Influenza Vaccine Exclusion Influenza Vaccine Exclusion : Patient declined VITALIY DARNELL LPN - 06/03/2012 7:23 CDT Source: [facility] POWERCHART Document Id: [id number] CDT!3 documented in this encounter Plan of Treatment Not on filedocumented as of this encounter Visit Diagnoses Not on filedocumented in this encounter
--- OUTSIDE RECORDS SUMMARY | 2021-09-05 08:03 | XMS_ITS | Encounter Summary ---
:1945 Author Organization [facility] Address [address] [place] [address] Care Team Providers Name Role Phone Unavailable Primary Care Provider Unavailable Encounter Details Date Type Department Care Team Description 04/22/2012 Hospital Encounter HX [facility] Nicki Holt, MAL, C.N.P., D.N.P. [address] [place], [place] [phone] (Wo rk) Social History [...] by mouth daily. Take 0 with food Rank By [employer] [facility]. documented as of this encounter Miscellaneous Notes Miscellaneous - Nicki Holt, D.N.P., C.N.P. - 04/26/2012 12:38 PM CDT Results Notification Document Contains Addenda Addendum by VITALIY VILLEDA LPN on 26 April 2012 13:47:07 CDT Copy of results sent to patient. From: NICKI HOLT DNP, PARENTING SKILLS INSTRUCTOR To: VITALIY VILLEDA LPN Sent: 04/26/2012 12:38:51 CDT ! Show up: 04/26/2012 17:38:51 [facility] Subject: Results Notification Actions: Note to Nurse Source: [facility] POWERCHART Document Id: [id number] Electronically signed by Conversion, [facility] Transformation Consultant [id number] at 07/16/2016 1:07 PM CDT documented in this encounter Plan of Treatment Not on filedocumented as of this encounter Procedures Procedure Name Priority Date/Time Associated Comments Diagnosis THYROID-STIMULATING Routine 04/22/2012 3:28 PM R esults for this HORMONE-SENSITIVE FREIGHT CAR INSPECTOR procedure are in (S-TSH) the results section. CREATININE WITH Routine 04/22/2012 3:28 PM Resul ts for this EGFR, S/P FREIGHT CAR INSPECTOR procedure are i n the results section. documented in this encounter Results (ABNORMAL) Creatinine with eGFR (04/22/2012 3:28 PM FREIGHT CAR INSPECTOR) athologist Signature Creatinine, S 0.94 0.60 - 1.30 POWERCHART MGDL HXeGFR (MDRD) 59 (L) >=60 POWERCHART [id number] Comment: A GFR of <60 mL/min is indicative of chr onic kidney disease. (MDRD calculation valid on patients 18 - 70 years.) eGFR Black/ >60 >=60 [id number] POWERCHART Specimen (Source) Anatomical Collection Method Collection Time Re ceived Time Location / / Volume Laterality Blood 04/22/2012 3:28 PM FREIGHT CAR INSPECTOR Nicki Holt SLAB WORKER, C.N.P., D.N.P. LAB BLOOD ADD- ON Performing Organization Address City/State/ZIP Code Phon e Number POWERCHART Thyroid-Stimulating Hormone-Sensitive (s-TSH) (04/22/2012 3:28 PM FREIGHT CAR INSPECTOR) athologist Signature TSH 4.87 0.30 - 5.00 POWERCHART (Thyrotropin) MCIUML Specimen (Source) Anatomical Collection Method Collection Time Re ceived Time Location / / Volume Laterality Blood 04/22/2012 3:28 PM FREIGHT CAR INSPECTOR Nicki Holt APRN C.N.P., D.N.P. LAB BLOOD ADD- ON Performing Organization Address City/State/ZIP Code Phon e Number POWERCHART documented in this encounter Visit Diagnoses Not on filedocumented in this encounter
--- OUTSIDE RECORDS SUMMARY | 2021-09-05 08:03 | XMS_ITS | Encounter Summary ---
:1945 Author Organization [facility] Address [address] [place] [address] Care Team Providers Name Role Phone Unavailable Primary Care Provider Unavailable Encounter Details Date Type Department Care Team Description 03/09/2012 Hospital Encounter HX [facility] Nicki Holt, MAL, C.N.P., D.N.P. [address] [place], [place] [phone] (Wo rk) Social History [...] by mouth daily. Take 0 with food [facility]. documented as of this encounter Miscellaneous Notes Miscellaneous - Nicki Holt, D.N.P., C.N.P. - 03/11/2012 3:52 PM ADVERTISEMENT DISTRIBUTOR Results Notification Document Contains Addenda Addendum by ROBERT JIANG RN on 11 March 2012 16:23:40 ADVERTISEMENT DISTRIBUTOR Letter mailed to patient. From: NICKI HOLT DNP, TRIAL PARALEGAL To: ROBERT JIANG RN Sent: 03/11/2012 15:52:35 ADVERTISEMENT DISTRIBUTOR ! Show up: 03/11/2012 21:52:35 [facility] Subject: Results Notification Actions: Note to Nurse Source: [facility] POWERCHART Document Id: [id number] Electronically signed by Conversion, [facility] Tool Room Machinist [id number] at 07/16/2016 9:06 PM CDT documented in this encounter Plan of Treatment Not on filedocumented as of this encounter Procedures Procedure Name Priority Date/Time Associated Comments Diagnosis LIPID PANEL, S Routine 03/09/2012 2:35 Results f or this PM ADVERTISEMENT DISTRIBUTOR procedure are i n the results section. ELECTROLYTE PANEL, S Routine 03/09/2012 2:35 Res ults for this PM ADVERTISEMENT DISTRIBUTOR procedure are i n the results section. THYROID-STIMULATING Routine 03/09/2012 2:35 Resu lts for this HORMONE-SENSITIVE PM ADVERTISEMENT DISTRIBUTOR procedure are in (S-TSH) the results section. HEMOGLOBIN A1C, B Routine 03/09/2012 2:35 Result s for this PM ADVERTISEMENT DISTRIBUTOR procedure are i n the results section. documented in this encounter Results (ABNORMAL) Thyroid-Stimulating Hormone-Sensitive (s-TSH) (03/09/2012 2:35 PM ADVERTISEMENT DISTRIBUTOR) Analysis Performed At Patho logist Time Signature TSH 6.99 (H) 0.30 - 5.00 POWERCHART (Thyrotropin) MCIUML Specimen (Source) Anatomical Collection Method Collection Time Re ceived Time Location / / Volume Laterality Blood 03/09/2012 2:35 PM ADVERTISEMENT DISTRIBUTOR Nicki Holt APRN, C.N.P., D.N.P. LAB BLOOD ADD- ON Performing Organization Address City/State/ZIP Code Phon e Number POWERCHART (ABNORMAL) Hemoglobin A1c (03/09/2012 2:35 PM ADVERTISEMENT DISTRIBUTOR) Analysis Performed At Patho logis Time Signature Hemoglobin A1c, 7.45 (H) 4.00 - POWERCHART B 6.00 Specimen (Source) Anatomical Collection Method Collection Time Re ceived Time Location / / Volume Laterality Blood 03/09/2012 2:35 PM ADVERTISEMENT DISTRIBUTOR Nicki Holt APRN, C.N.P., D.N.P. LAB BLOOD ADD- ON Performing Organization Address City/State/ZIP Code Phon e Number POWERCHART Electrolyte Panel (03/09/2012 2:35 PM ADVERTISEMENT DISTRIBUTOR) P athologist Signature Sodium, S 139.8 135.0 - POWERCHART 145.0 MML Potassium, S 4.0 3.6 - 4.8 POWERCHART MMOLL Chloride, S 102 100 - 108 POWERCHART MMOLL CO2 Total 27.0 23.0 - 29.0 POWERCHART MMOLL Anion Gap 11 10 - 20 POWERCHART MMOLL Specimen (Source) Anatomical Collection Method Collection Time Re ceived Time Location / / Volume Laterality Blood 03/09/2012 2:35 PM ADVERTISEMENT DISTRIBUTOR Deana Mojica APRN.N.P., D.N.P. LAB BLOOD ADD- ON Performing Organization Address City/[facility] Phon e Number POWERCHART (ABNORMAL) Lipid Panel (03/09/2012 2:35 PM ADVERTISEMENT DISTRIBUTOR) P athologist Signature Cholesterol, 208 (H) 0 - 200 POWERCHART Total MGDL Comment: <200 mg/dL Desirable 200-239 mg/dL Borderline High >239 mg/dL High HX HDL 57 35 - 60 MGDL POWERCHART Comment: > 60 mg/dL Desirable 40 ? 60 mg/dL Low Risk <40 mg/dL Undesirable Triglycerides 319 (H) 9 - 150 MGDL POWERCHART Comment: <150 mg/dL Desirable 150-199 mg/dL Borderline High 200-499 mg/dL High > 499 Very High Calculated LDL 87 (L) 100 - 129 MGDL POWERCHART Total Cholesterol/HDL Ratio 4 PO WERCHART Specimen (Source) Anatomical Collection Method Collection Time Re ceived Time Location / / Volume Laterality Blood 03/09/2012 2:35 PM ADVERTISEMENT DISTRIBUTOR Nicki Holt APRN C.N.P., D.N.P. LAB BLOOD ADD- ON Performing Organization Address City/State/ZIP Code Phon e Number POWERCHART documented in this encounter Visit Diagnoses Not on filedocumented in this encounter
--- OUTSIDE RECORDS SUMMARY | 2021-09-05 08:03 | XMS_ITS | Encounter Summary ---
:1945 Author Organization [facility] Address [address] [place] [address] Care Team Providers Name Role Phone Unavailable Primary Care Provider Unavailable Encounter Details Date Type Department Care Team Description 01/07/2011 Hospital Encounter [facility]X [facility] Nicki Holt, MAL, C.N.P., D. N.P. [address] [place] [phone] (Wo rk) Social History Tobacco [...] as of this encounter Progress Notes Nicki Holt, Maritza.N.P., C.N.P. - 01/07/2011 12:00 AM CST [id number] CHIEF COMPLAINT/REASON FOR VISIT Medication refills. HISTORY OF PRESENT ILLNESS Patient is a 65-year-old female who is a type 2 diabetic in which she needs refills of her medication. She reports that she is reluctant to go back to the metformin 1000 mg extend release. She states that she did become more hypoglycemic and shaking when she took a couple days of this medication but does report that she did change the time for which she had taken the glipizide. She was taking glipizide, not in the morning but in the evening. She is unsure if this may have been a correlation to her shakiness. She otherwise reports that she tolerates her medication well and is not having any loose stools from the metformin extended release but states that she does not tolerate the non-extended release metformin. She reports that she is aware she is due for labs and otherwise denies having any other further concerns or complaints at this time. Note that the patient also complains of vaginal pruritus on occasion to the intertrigo area and is wondering if she can try a topical cream. She reports that this only occurs occasionally and reports that she has used [id number] Vaseline and alcohol with no symptom improvement. CURRENT MEDICATIONS ALLERGIES Medications and allergies reviewed, please see chart. PAST MEDICAL HISTORY/SURGICAL HISTORY FAMILY HISTORY Past medical, surgical, family history reviewed. Please see chart. PHYSICAL EXAMINATION GENERAL: The patient is an alert, obese 65-year-old female who appears in no acute distress. Alert and oriented x 3. HEENT: head normocephalic, atraumatic. PERRLA. Oropharynx is pink and moist. Bilateral TMs are clear. Bony landmarks are noted and within normal limits. Nares are patent with no erythema or drainage noted. NECK: no anterior or posterior lymphadenopathy is noted. LUNGS: clear to auscultation, no prolonged expiratory phases. No wheezes, rales, or rhonchi are noted. HEART: heart sounds are regular, S1 and S2. No murmurs, rubs, or gallops. SKIN: without any unusual rashes or suspicious lesions. LABORATORY: Hemoglobin A1c, comprehensive profile, and lipid panel presently pending. IMPRESSION/REPORT/PLAN 1. Type 2 diabetes mellitus. 2. Hyperlipidemia. 3. Vaginal discomfort. PLAN: Discussed the findings with the patient. We will plan on contacting the patient once we receive these results. I did opt to continue her back on metformin 1000 mg extended release to be taken every day and indicated that she is to take it with the glipizide in the morning #30 tablets with no refills authorized. We will obtain her hemoglobin A1c within the next week duration. Patient is also given a refill of her Norvasc 2.5 mg tabs which she is to take one tablet by mouth daily #90 with 3 refills authorized and ensuring that her blood pressure goal is less than 120/80. Also I did opt to provide the patient with nystatin topical 1000 units per gram cream to apply to affected areas as needed three times a day. Indicated if the symptoms do not improve, follow-up would be warranted. Patient understands this plan and she otherwise denied having any other further concerns. Patient ambulated out of the clinic in no acute distress. Patient Education #1 Patient ready to learn. No apparent learning barriers were identified. Learning preferences included listening. Explained diagnosis and treatment plan. Patient expressed understanding of the content. Nicki Holt D.N.P., Logan.Kvng /felix Electronically Signed By: NICKI HOLT DNP, FNP On: 01/14/2011 07:48 PM Source: [facility]RAD[facility] Document Id: [id number] LING ENGINEER documented in this encounter Miscellaneous Notes Miscellaneous - Nicki Holt D.N.P., C.N.P. - 01/07/2011 8:41 AM DRILLING ENGINEER Ambulatory Patient Summary [address] [address] Visit Information Name: ARCHIE BAZAN Current Date: 01/07/2011 08:41:10 Primary Care Provider: NICKI HOLT DNP, FNP Your Medications Here is a list of your medications. It is important to take your medications as directed. Use a pillbox or chart to help remind you to take your medications. Please let your doctor or nurse know if you have problems taking your medications. Medication/Strength Dose Route Frequency Indications/Special Instructions/Comments amlodipine (Norvasc 2.5 mg oral tablet) 2.5 mg Oral once a day nystatin topical (nystatin topical 100,000 units/g cream) 1 shauna Topical three times a day metformin (metformin 1000 mg oral tablet, extended release) 1,000 mg Oral once a day simvastatin (simvastatin 10 mg oral tablet) 10 mg Oral once a day (at bedtime) clobetasol topical (clobetasol topical 0.05% solution) 1 shauna Topical two times a day as needed for Rash alprazolam (Xanax 0.5 mg oral tablet) 0.5 mg Oral every 8 hours as needed for Anxiety glipiZIDE (glipiZIDE 5 mg oral tablet) 5 mg Oral once a day aspirin (aspirin 81 mg oral tablet) 1 tab(s) Oral once a day Your Allergies & Intolerances Substance Reaction Symptoms Category Comments azithromycin Drug Benicar Drug Your Problem List Problem Status Onset Comments NIDDM [non-insulin dependent diabetes mellitus] Active 06/05/2007 Hyperlipidemia/Dyslipidemia Active 2004 Osteoarthritis Active Osteoporosis NOS Active Rosacea Active 2006 TIA [Transient ischemic attack] Active 06/05/2007 Anxiety disorder NOS Active 06/05/1987 Your Recommendations We want to make sure you get the tests, immunizations, and guidance you need to stay healthy. Here is a customized list of recommendations, based on information we have in your medical record. Your doctor may have additional recommendations for you, based on your personal medical history and risk factors. You can help us by calling us to make an appointment when you are due for your tests. Additional information regarding recommendations: Test/Treatment Last Done Next Due Additional Information Diabetes: Creatinine every 1 year 09/23/2010 09/23/2011 Diabetes: Diabetes Education every 1 year 01/07/2011 Diabetes: Eye Exam every 1 year 07/22/2010 07/22/2011 Diabetes: Foot Exam every 1 year 10/08/2009 10/08/2010 Diabetes: Microalbumin/Urine Protein every 1 year 05/30/2010 05/30/2011 Diabetes and/or Vascular: LDL every 1 year 10/16/2010 10/16/2011 Screening Bone Density Once Women greater than age 64 01/07/2011 Checks for bone loss and osteoporosis. Screening Colonoscopy or Flex Sig or Occult Blood X3 01/03/2009 01/01/2019 Checks for signs of cancer of the colon. Screening Mammogram every 1 year Women 40-75 01/07/2011 X-rays of breast to check for breast cancer. Screening Pap Smear every 3 years Women 21-65 01/07/2011 Checks for signs of cancer of the cervix. Lipid Panel every 5 years Age 20-75 10/16/2010 10/15/2015 Checks blood for good (HDL) and bad (LDL) cholesterol. Know your numbers, they are one indicator of your risk for heart attack and stroke. Vaccine: Flu every 1 year 11/30/2010 11/30/2011 Immunization to help prevent you from getting the flu strain expected to be a problem for that year's flu season. Vaccine: Pneumococcal Once 01/07/2011 Immunization to help prevent you from getting 23 kinds of pneumococcal bacteria that can lead to pneumonia, bacteremia and meningitis. Vaccine: Tetanus every 10 years 02/14/2010 02/12/2020 Immunization to help prevent you from getting the serious disease Tetanus (Lockjaw). Your Upcoming Appointments Date Time Location Reason Provider No Appointments found Your Goals/Additional instructions: Source: [facility] POWERCHART Document Id: [id number] LING ENGINEER Miscellaneous - Nicki Holt D.N.P., C.N.P. - 01/07/2011 8:41 AM DRILLING ENGINEER Ambulatory Depart Summary [address] [address] Visit Information Name: ARCHIE BAZAN Current Date: 01/07/2011 08:41:08 Primary Care Provider: NICKI HOLT [facility], SENIOR ELECTRONICS ENGINEER ARCHIE BAZAN has been given the following list of medications: Your Medications It is important to take your medications as directed. Use a pill box or chart to help remind you to take your medications. Please let your doctor or nurse know if you have problems taking your medications. Medication/Strength Dose Route Frequency Indications/Special Instructions/Comments amlodipine (Norvasc 2.5 mg oral tablet) 2.5 mg Oral once a day nystatin topical (nystatin topical 100,000 units/g cream) 1 shauna Topical three times a day metformin (metformin 1000 mg oral tablet, extended release) 1,000 mg Oral once a day simvastatin (simvastatin 10 mg oral tablet) 10 mg Oral once a day (at bedtime) clobetasol topical (clobetasol topical 0.05% solution) 1 shauna Topical two times a day as needed for Rash alprazolam (Xanax 0.5 mg oral tablet) 0.5 mg Oral every 8 hours as needed for Anxiety glipiZIDE (glipiZIDE 5 mg oral tablet) 5 mg Oral once a day aspirin (aspirin 81 mg oral tablet) 1 tab(s) Oral once a day Additional Information: Yes - Current list of reconciled medications is provided and explained to the patient and/or family, guardian/caregiver. Source: [facility] POWERCHART Document Id: [id number] LING ENGINEER Miscellaneous - Olga Woods L.P.N. - 01/07/2011 7:48 AM CST Adult Military Professional Intake/History Adult Military Professional Intake/History Entered On: 01/07/2011 7:51 DRILLING ENGINEER Performed On: 01/07/2011 7:48 DRILLING ENGINEER by OLGA WOODS LPN, RT Intake Chief Complaint : f/u medication refills Ambulatory Intake Additional Information : concerned about dry throat x 1 month Temperature Core : 36C(Converted to: 96.8DegF) (LOW) Peripheral Pulse Rate : 71/min Systolic Blood Pressure : 122mmHg Diastolic Blood Pressure : 60mmHg NIBP Mean : 81mmHg BP Location : Left upper extremity SpO2 : 97% Heart Rhythm : Regular Oxygen Therapy : Room air Actual Weight : 88.1kg(Converted to: 194lb 4oz) Dosing Weight Clinic : 88.10kg OLGA WOODS LPN, RT - 01/07/2011 7:48 DRILLING ENGINEER General Info Information Given By : Patient Preferred Communication Mode : Verbal Languages : Bulgarian OLGA WOODS LPN, RT - 01/07/2011 7:48 DRILLING ENGINEER Subjective Pain Symptoms : No OLGA WOODS LPN, - 01/07/2011 7:48 DRILLING ENGINEER Dependent Habits Tobacco Use/Currently Using : No Smoking Status : Never smoker Alcohol Use : No OLGA WOODS LPN, - 01/07/2011 7:48 DRILLING ENGINEER Caffeine Use Grid Caffeine Use : Current Type : Tea Frequency : Occasionally OLGA WOODS LPN, RT - 01/07/2011 7:48 DRILLING ENGINEER Recreational Drug Use Grid Drug Use : None OLGA WOODS LPN, - 01/07/2011 7:48 DRILLING ENGINEER Allergy Allergies (Active) azithromycin Estimated Onset Date: Unspecified ; Created By: PETRA RUSSELL LPN; Reaction Status: Active ; Category: Drug ; Substance: azithromycin ; Type: Allergy ; Updated By: PETRA RUSSELL LPN; Reviewed Date: 11/14/2010 14:45 CDT Benicar Estimated Onset Date: Unspecified ; Created By: PETRA RUSSELL LPN; Reaction Status: Active ; Category: Drug ; Substance: Benicar ; Type: Allergy ; Updated By: PETRA RUSSELL LPN; Reviewed Date: 11/14/2010 14:45 CDT [facility]: [facility] Document Id: [id number] DRILLING ENGINEER!33 LING ENGINEER documented in this encounter Plan of Treatment Not on filedocumented as of this encounter Visit Diagnoses Not on filedocumented in this encounter
--- OUTSIDE RECORDS SUMMARY | 2021-09-05 08:03 | XMS_ITS | Encounter Summary ---
:1945 Author Organization [facility] Address [address] [place] [address] Care Team Providers Name Role Phone Unavailable Primary Care Provider Unavailable Encounter Details Date Type Department Care Team Description 01/16/2011 Hospital Encounter [facility]X [facility] Vickey Holt, MAL, Deana.N.P., D. N.P. [address] [place] [address] (Wo rk) Social History [...] on file documented as of this encounter H&P Notes Vickey Holt, Maritza.N.P., C.N.P. - 01/16/2011 12:00 AM CST [id number] CHIEF COMPLAINT/REASON FOR VISIT 1. Routine physical. 2. Lesions near the rectal area. HISTORY OF PRESENT ILLNESS Patient is a 65-year-old female that presents to the clinic today for a routine physical examination. She also reports that she has had a lesion near the rectal area that has been present now that she thinks that maybe it has been made there for maybe about a year but reports that it has more so surfaced in the last approximate month. She reports that it has become more sore to the area and reports that on occasion she has noticed some discharge from the area. She currently reports that she has not been having any fevers, chills, nausea, or vomiting as I will also note that recently we went over her medications with her as of 01/07/2011. (Please refer to that to visit from 01/07/2011). PAST MEDICAL/SURGICAL HISTORY Reviewed. Please see chart. FAMILY HISTORY Reviewed. Please see chart. CURRENT MEDICATIONS Reviewed. Please see chart. ALLERGIES Reviewed. Please see chart. PHYSICAL EXAMINATION GENERAL: The patient is an alert, obese 65-year-old female that appears to be in no acute distress. OBJECTIVE: Patient is alert/oriented x 3. HEAD: Normocephalic/atraumatic. PUPILS: GENE. OROPHARYNX: [place] and moist. TMs: Bilateral TMs are clear, bony landmarks noted and WNL. NARES: Patent, no erythema or drainage noted. NECK: No anterior/posterior lymphadenopathy noted. HEART: Regular S1, S2, no murmurs, rubs or gallops noted. LUNGS: Clear to auscultation, no prolonged expiratory phases, wheezing, rales or rhonchi noted. SKIN: Without unusual rashes or suspicious lesions ABDOMEN: Round and obese. GENITOURINARY: Pap smear is presently pending and also note that there is a follicular lesion to the 9 o'clock location near the rectum that appears to be mildly erythematous as there is an open ulcerated area that is approximately 2 mm in diameter to this area with some yellow pus-like drainage coming from it. No periwound erythema, induration, or maceration of the skin is noted. LABS: Sodium 134.4. potassium 4.0, alkaline phos 54, fasting glucose 143, creatinine 0.76, AST 20, ALT 16, cholesterol 151, triglycerides 152, HDL 57, LDL 63, hemoglobin A1c 6.79 (hemoglobin A1c was 7.19 on 10/16/2010). A wound culture is presently pending. IMPRESSION/REPORT/PLAN 1. Bacterial folliculitis. 2. Otherwise unremarkable routine physical examination. 3. Past medical history of type 2 diabetes mellitus. 4. History of hyperlipidemia. PLAN: Discussed the findings at length with the patient. Presently we have continued to alter her medications for her diabetic regimen and we have not decided to make any further changes at this time. Currently we will plan on rechecking her 3-month blood sugar average in three months duration as I feel that we will continue to see some improvement regarding these numbers. She continues to show adequate control with her simvastatin as her cholesterols are present well maintained and her LDL is at 63. We will plan on contacting the patient regarding her results from her wound culture, though I did opt to start the patient on Keflex 500 mg tablets to take one capsule by mouth twice a day for seven days duration in which she was also given Bactroban ointment to apply to the affected areas three times a day as needed. I indicated that if the lesion near the rectal area worsens follow-up would be warranted. Advised we will plan on contacting the patient regarding the results of her mammogram as also she is not due for her colonoscopy until 2019 and immunizations are presently up-to-date. The patient stated she understands this plan as she otherwise denied having any other further concerns. The patient ambulated out of the clinic in no acute distress. PATIENT EDUCATION: Ready to learn No apparent learning barriers were identified Learning preferences include listening Explained diagnosis and treatment plan Patient/Child/Caregiver expressed understanding of the content Vickey Holt D.N.P., F.N.P. /arnol Electronically Signed By: VICKEY HOLT DNP, FNP On: 01/27/2011 11:30 AM Source: [facility] MHSDOLBEYNONRADSYS Document Id: [id number] OGICAL PLANT OPERATOR documented in this encounter Miscellaneous Notes Miscellaneous - Vickey Holt D.N.Kvng, C.N.P. - 01/16/2011 9:11 PM BIOLOGICAL PLANT OPERATOR Ambulatory Patient Summary [id number] [place] [address] Visit Information Name: MARCIAL BAZAN Current Date: 01/16/2011 21:11:07 Primary Care Provider: VICKEY HOLT DNP, FNP Your Medications Here is a list of your medications. It is important to take your medications as directed. Use a pillbox or chart to help remind you to take your medications. Please let your doctor or nurse know if you have problems taking your medications. Medication/Strength Dose Route Frequency Indications/Special Instructions/Comments mupirocin topical (Bactroban 2% topical ointment) 1 shauna Topical three times a day as needed for Rash cephalexin (Keflex 500 mg oral capsule) 500 mg Oral two times a day for 7 Days amlodipine (Norvasc 2.5 mg oral tablet) 2.5 mg Oral once a day Take for high blood pressure. nystatin topical (nystatin topical 100,000 units/g cream) 1 shauna Topical three times a day metformin (metformin 1000 mg oral tablet, extended release) 1,000 mg Oral once a day Take for high blood sugars. simvastatin (simvastatin 10 mg oral tablet) 10 mg Oral once a day (at bedtime) Take for high cholesterol. clobetasol topical (clobetasol topical 0.05% solution) 1 shauna Topical two times a day as needed for Rash alprazolam (Xanax 0.5 mg oral tablet) 0.5 mg Oral every 8 hours as needed for Anxiety Take for anxiety. glipiZIDE (glipiZIDE 5 mg oral tablet) 5 mg Oral once a day 30 minutes before breakfast for high blood sugars. aspirin (aspirin 81 mg oral tablet) 1 tab(s) Oral once a day Take with food for heart health. Your Allergies & Intolerances Substance Reaction Symptoms Category Comments azithromycin Drug Benicar Drug Your Problem List Problem Status Onset Comments NIDDM [non-insulin dependent diabetes mellitus] Active 06/05/2007 Hyperlipidemia/Dyslipidemia Active 2004 Osteoarthritis Active date of onset unknown Osteoporosis NOS Active date of onset unknown Rosacea Active 2006 TIA [Transient ischemic attack] [...] Additional Information Diabetes: Creatinine every 1 year 01/15/2011 01/15/2012 Diabetes: Diabetes Education every 1 year 01/16/2011 Diabetes: Eye Exam every 1 year 07/22/2010 07/22/2011 Diabetes: Foot Exam every 1 year 10/08/2009 10/08/2010 Diabetes: Microalbumin/Urine Protein every 1 year 05/30/2010 05/30/2011 Diabetes and/or Vascular: LDL every 1 year 01/15/2011 01/15/2012 Screening Bone Density Once Women greater than age 64 01/16/2011 Checks for bone loss and osteoporosis. Screening Colonoscopy or Flex Sig or Occult Blood X3 01/03/2009 01/01/2019 Checks for signs of cancer of the colon. Lipid Panel every 5 years Age 20-75 01/15/2011 01/14/2016 Checks blood for good (HDL) and bad (LDL) cholesterol. Know your numbers, they are one indicator of your risk for heart attack and stroke. Vaccine: Flu every 1 year 11/30/2010 11/30/2011 Immunization to help prevent you from getting the flu strain expected to be a problem for that year's flu season. Vaccine: Pneumococcal Once 01/16/2011 Immunization to help prevent you from getting 23 kinds of pneumococcal bacteria that can lead to pneumonia, bacteremia and meningitis. Vaccine: Tetanus every 10 years 02/14/2010 02/12/2020 Immunization to help prevent you from getting the serious disease Tetanus (Lockjaw). Your Upcoming Appointments Date Time Location Reason Provider No Appointments found Your Goals/Additional instructions: Source: [facility] POWERCHART Document Id: [id number] OGICAL PLANT OPERATOR Miscellaneous - Vickey Holt, D.N.P., C.N.P. - 01/16/2011 9:11 PM BIOLOGICAL PLANT OPERATOR Ambulatory Depart Summary [address] [place] [address] Visit Information Name: MARCIAL BAZAN Current Date: 01/16/2011 21:11:06 Primary Care Provider: VICKEY HOLT DNP, ELECTRICIAN ASSISTANT MARCIAL BAZAN has been given the following list of medications: Your Medications It is important to take your medications as directed. Use a pill box or chart to help remind you to take your medications. Please let your doctor or nurse know if you have problems taking your medications. Medication/Strength Dose Route Frequency Indications/Special Instructions/Comments mupirocin topical (Bactroban 2% topical ointment) 1 shauna Topical three times a day as needed for Rash cephalexin (Keflex 500 mg oral capsule) 500 mg Oral two times a day for 7 Days amlodipine (Norvasc 2.5 mg oral tablet) 2.5 mg Oral once a day Take for high blood pressure. nystatin topical (nystatin topical 100,000 units/g cream) 1 shauna Topical three times a day metformin (metformin 1000 mg oral tablet, extended release) 1,000 mg Oral once a day Take for high blood sugars. simvastatin (simvastatin 10 mg oral tablet) 10 mg Oral once a day (at bedtime) Take for high cholesterol. clobetasol topical (clobetasol topical 0.05% solution) 1 shauna Topical two times a day as needed for Rash alprazolam (Xanax 0.5 mg oral tablet) 0.5 mg Oral every 8 hours as needed for Anxiety Take for anxiety. glipiZIDE (glipiZIDE 5 mg oral tablet) 5 mg Oral once a day 30 minutes before breakfast for high blood sugars. aspirin (aspirin 81 mg oral tablet) 1 tab(s) Oral once a day Take with food for heart health. Additional Information: Yes - Current list of reconciled medications is provided and explained to the patient and/or family, guardian/caregiver. Source: [facility] POWERCHART Document Id: [id number] OGICAL PLANT OPERATOR Miscellaneous - Vickey Holt, Maritza.N.P., C.N.P. - 01/16/2011 9:11 PM BIOLOGICAL PLANT OPERATOR Quality Measures Quality Measures Entered On: 01/16/2011 21:11 BIOLOGICAL PLANT OPERATOR Performed On: 01/16/2011 21:11 BIOLOGICAL PLANT OPERATOR by VICKEY HOLT DNP, FNP Diabetes Date of Last Foot Exam : 01/16/2011 BIOLOGICAL PLANT OPERATOR VICKEY OHLT DNP, FNP - 01/16/2011 21:11 BIOLOGICAL PLANT OPERATOR Foot Exam Grid Left foot exam Right foot exam Dorsalis Pedis Pulse : Normal Normal Post Tibial Pulse : Normal Normal Capillary Refill : Less than 3 seconds Less than 3 seconds 10 gm Monofilament Sensation Check : Intact Intact VICKEY HOLT DNP, [facility] - 01/16/2011 21:11 BIOLOGICAL PLANT OPERATOR VICKEY HOLT DNP, [facility] - 01/16/2011 21:11 BIOLOGICAL PLANT OPERATOR Source: [facility] [employer] Document Id: [id number] BIOLOGICAL PLANT OPERATOR!14 OGICAL PLANT OPERATOR Miscellaneous - Sylvia Darnell LJairoP.N. - 01/16/2011 9:25 AM CST Health Assessment Health Assessment Entered On: 01/16/2011 9:25 BIOLOGICAL PLANT OPERATOR Performed On: 01/16/2011 9:25 BIOLOGICAL PLANT OPERATOR by SYLVIA DARNELL LPN Nutrition Nutrition Risk Factors by History Adult : None SYLVIA DARNELL LPN - 01/16/2011 9:25 BIOLOGICAL PLANT OPERATOR Functional Current Daily Living Assistance : None SYLVIA DARNELL LPN - 01/16/2011 9:25 BIOLOGICAL PLANT OPERATOR Dependent Habits Tobacco Use/Currently Using : No Exposure to Tobacco Smoke : Care provider denies smoking in home Smoking Status : Never smoker SYLVIA DARNELL LPN - 01/16/2011 9:25 BIOLOGICAL PLANT OPERATOR Caffeine Use Grid Caffeine Use : Current Type : Tea Frequency : Occasionally SYLVIA DARNELL LPN - 01/16/2011 9:25 BIOLOGICAL PLANT OPERATOR Recreational Drug Use Grid Drug Use : None SYLVIA DARNELL LPN - 01/16/2011 9:25 BIOLOGICAL PLANT OPERATOR Psychosocial Domestic Abuse Concerns : None SYLVIA DARNELL LPN - 01/16/2011 9:25 BIOLOGICAL PLANT OPERATOR Advance Directive Advanced Directives : No SYLVIA DARNELL LPN - 01/16/2011 9:25 BIOLOGICAL PLANT OPERATOR Educ Needs Learning Style Preference Adult Grid Patient : None Family : None SYLVIA DARNELL LPN - 01/16/2011 9:25 BIOLOGICAL PLANT OPERATOR Source: [facility] [employer] Document Id: [id number] BIOLOGICAL PLANT OPERATOR!25 OGICAL PLANT OPERATOR Miscellaneous - Sylvia Darnell L.P.N. - 01/16/2011 9:16 AM CST Adult Employment Training Specialist Intake/History Adult Employment Training Specialist Intake/History Entered On: 01/16/2011 9:24 BIOLOGICAL PLANT OPERATOR Performed On: 01/16/2011 9:16 BIOLOGICAL PLANT OPERATOR by SYLVIA DARNELL LPN Intake Chief Complaint : General physical, lump in sarah area x1 year, now hurting and possible bigger, and started bleeding Thursday night, Labs done yesturday with mammogram Temperature Core : 35.6C(Converted to: 96.1DegF) (LOW) Peripheral Pulse Rate : 76/min Respiratory Rate : 16/min Systolic Blood Pressure : 122mmHg Diastolic Blood Pressure : 66mmHg NIBP Mean : 85mmHg BP Location : Right upper extremity Heart Rhythm : Regular Actual Weight : 90.2kg(Converted to: 198lb 14oz) Weight Source : Standing scale Dosing Weight Clinic : 90.20kg SYLVIA DARNELL LPN - 01/16/2011 9:16 BIOLOGICAL PLANT OPERATOR Subjective Pain Symptoms : No SYLVIA DARNELL LPN - 01/16/2011 9:16 BIOLOGICAL PLANT OPERATOR Dependent Habits Tobacco Use/Currently Using : No Tobacco Use/Last 12 months : No Exposure to Tobacco Smoke : Care provider denies smoking in home Smoking Status : Never smoker Alcohol Use : No SYLVIA DARNELL LPN - 01/16/2011 9:16 BIOLOGICAL PLANT OPERATOR Caffeine Use Grid Caffeine Use : Current Type : Tea Frequency : Occasionally SYLVIA DARNELL LPN - 01/16/2011 9:16 BIOLOGICAL PLANT OPERATOR Recreational Drug Use Grid Drug Use : None SYLVIA DARNELL LPN - 01/16/2011 9:16 BIOLOGICAL PLANT OPERATOR Allergy Allergies (Active) azithromycin Estimated Onset Date: Unspecified ; Created By: PETRA RUSSELL LPN; Reaction Status: Active ; Category: Drug ; Substance: azithromycin ; Type: Allergy ; Updated By: PETRA RUSSELL LPN; Reviewed Date: 01/16/2011 9:05 BIOLOGICAL PLANT OPERATOR Benicar Estimated Onset Date: Unspecified ; Created By: PETRA RUSSELL LPN; Reaction Status: Active ; Category: Drug ; Substance: Benicar ; Type: Allergy ; Updated By: PETRA RUSSELL LPN; Reviewed Date: 01/16/2011 9:05 BIOLOGICAL PLANT OPERATOR Source: [facility] POWERCHART Document Id: [id number] BIOLOGICAL PLANT OPERATOR!30 OGICAL PLANT OPERATOR documented in this encounter Plan of Treatment Not on filedocumented as of this encounter Procedures Procedure Name Priority Date/Time Associated Diagnosis Comme nts THINPREP SCREEN HPV Routine 01/16/2011 10:30 AM R esults for this REFLEX BIOLOGICAL PLANT OPERATOR procedure are i n the results section. documented in this encounter Results ThinPrep Screen HPV Reflex (01/16/2011 10:30 AM BIOLOGICAL PLANT OPERATOR) [facility] Method Time Signature Interpretation [id number] POWERCHART HXThPrep Scrn See Comment POWERCHART [facility] Comment: A. ??ThinPrep Pap Test Screen (Cervical/ Endocervical HPV Reflex): Satisfactory for evaluation. Negative for intraepithelial lesion or m alignancy. HXThPrep Scrn [facility] See Comment [facility] Comment: Report electronically signed by BLANCA Pinto(ASCP) 01/20/2011 16:53 Interpreted by: BLANCA Pinto(ASCP) [facility] See Comment POWERCHART Comment: A. ??ThinPrep Pap Test Screen (Cervical/ Endocervical HPV Reflex): Received cloudy specimen in ThinPrep via l. Test Performed by: [facility] Dpt of Lab Med and Pathology [address] [place] [address] Welding Pantograph Operator: Donovan calderon III, M.D. Specimen (Source) Anatomical Collection Method Collection Time Re ceived Time Location / / Volume Laterality Cervix/Endocervix 01/16/2011 10:30 AM BIOLOGICAL PLANT OPERATOR Vickey Holt APRN, C.N.P., D.N.P. LAB PAP PATHDX ORDERABLES Performing Organization Address City/State/ZIP Code Phon e Number POWERCHART documented in this encounter Visit Diagnoses Not on filedocumented in this encounter
--- OUTSIDE RECORDS SUMMARY | 2021-09-05 08:03 | XMS_ITS | Encounter Summary ---
:1945 Author Organization [facility] Address [address] [place] [address] Care Team Providers Name Role Phone Unavailable Primary Care Provider Unavailable Encounter Details Date Type Department Care Team Description 12/17/2011 Hospital Encounter HX [facility] ME Vickey Holt, MAL, C.N.P., D. N.P. [address] [place] [address] (Wo rk) Social History Tobacco [...] on file documented as of this encounter Nursing Notes Luciana Steiner - 12/17/2011 3:23 PM CDT Target Network Analyst Intake (Adult) [employer] Network Analyst Intake (Adult) Entered On: 12/17/2011 15:26 CDT Performed On: 12/17/2011 15:23 CDT by LUCIANA STEINER microbiology technician Program Type : Post Program Diabetes Referring Provider : JERMAN ARIAS MD Special needs : None Method Used for DSME : Individual Diabetes Type : Type 2 19 years and older Ethnicity : Chose Not to Disclose Diabetes Visit Summary : Discussed meal plan and snacks. Patient eager to follow plan in [facility] My Weight Solution. Time Spent With Patient : 60 Minutes LUCIANA STEINER RN - 12/17/2011 15:23 CDT Education Diabetes Education Grid Topics : Disease process, Nutritional Management - Small Portions, Physical activity Individuals Taught : Patient Barriers to Learning : None evident Teaching Method : Explanation, Printed materials Teaching Evaluation : Verbalizes understanding LUCIANA STEINER RN - 12/17/2011 15:23 CDT Post-program Education/Goals Diabetes Post-program Goals grid Post-program Goal #1 Post-program Goal #2 Date goal set : 12/16/2011 CDT 12/17/2011 CDT Goal : Use Plate Method or [employer] My Weight Solution for 1 meal each day Related Content Area : Healthy eating LUCIANA STEINER RN - 12/17/2011 15:23 CDT LUCIANA STEINER RN - 12/17/2011 15:23 CDT [email or web address] Document Id: [id number] documented in this encounter Miscellaneous Notes Miscellaneous - Luciana Steiner - 03/02/2012 4:55 PM CST Med Management Document Contains Addenda Addendum by LUCIANA STEINER RN on 05 March 2012 16:45:40 DIVIDEND CLERK Thanks. Addendum by VICKEY HOLT DNP, FNP on 05 March 2012 11:34:50 DIVIDEND CLERK letter dictated. Addendum by LUCIANA STEINER RN on 02 March 2012 17:40:04 DIVIDEND CLERK From: LUCIANA STEINER RN To: VICKEY HOLT DNP, FNP; Sent: 03/02/2012 17:40:04 DIVIDEND CLERK Subject: FW: Med Management Annabelle Caceres, I need help with dosing of Fish Oil, Mucinex, and Calcium. I tried to catch you a few times but you were in rooms. Also, I did inadvertently send prilosec directly instead of proposing so please check that it is okay. Sorry. THis is the message where Niurkaclemencia is asking for a letter saying she has been recommended to take these so she can receive deduction. Addendum by VICKEY HOLT DNP, FNP on 02 March 2012 17:14:09 DIVIDEND CLERK From: VICKEY HOLT DNP, FNP To: LUCIANA STEINER RN Sent: 03/02/2012 17:14:09 DIVIDEND CLERK Subject: RE:Med Management Approved Order Order: aspirin (aspirin 81 mg oral tablet) 1 tab(s) PO Daily Take with food for heart health. Qty: 30 tab(s) Refills: 0 Substitutions Allowed Route To Pharmacy - [facility] Signed by VICKEY HOLT DNP, FNP 03/02/2012 17:14:08 From: LUCIANA STEINER RN To: VICKEY HOLT DNP, FNP; Sent: 03/02/2012 16:55:59 DIVIDEND CLERK Subject: Med Management Submitted: Order Order: omeprazole (Prilosec OTC 20 mg oral delayed release capsule) See Instructions one tab daily Qty: 30 tab(s) Refills: 0 Substitutions Allowed Route To Pharmacy - [facility] Signed by LUCIANA STEINER RN On hold pending signature Order Order: aspirin (aspirin 81 mg oral tablet) 1 tab(s) PO Daily Take with food for heart health. Qty: 30 tab(s) Refills: 0 Substitutions Allowed Route To Pharmacy - [facility] Documented Discontinue Order: aspirin (aspirin 81 mg oral tablet) Signed by LUCIANA STEINER RN 03/02/2012 16:50:06 Source: [facility] [employer] Document Id: [id number] Electronically signed by Sae [facility] Burial Needs Salesperson [id number] at 07/19/2016 11:11 PM CDT Miscellaneous - Luciana Steiner - 03/02/2012 10:45 AM CST General Message Document Contains Addenda Addendum by VICKEY HOLT DNP, FNP on 02 March 2012 12:49:58 DIVIDEND CLERK From: VICKEY HOLT DNP, FNP To: LUCIANA STEINER RN; Sent: 03/02/2012 12:49:58 DIVIDEND CLERK Subject: RE: General Message Addendum by VICKEY HOLT DNP, FNP on 02 March 2012 12:49:52 DIVIDEND CLERK Monica, can you turn these into prescription for me and propose them. I cannot authorize the Garlic asI don't have really any evidenced based research to support the use of this (at least that I know of). She only requires a prescription, that is all that is required for tax deductions. thank you. From: LUCIANA STEINER RN To: VICKEY HOLT DNP, FNP; Sent: 03/02/2012 10:45:30 DIVIDEND CLERK Subject: General Message Patient would like letter stating the following OTC meds have been discussed and prescribed. She canthen submit letter and have it used as some kind of deduction. Low dose ASA, Prilosec OTC, Garlic, Fish Oil, Mucinex, Calcium. Source: [facility] [employer] Document Id: [id number] Electronically signed by Conversion, [facility] Burial Needs Salesperson [id number] at 07/19/2016 11:11 PM CDT Miscellaneous - Robert Jiang, RJairoN. - 02/26/2012 9:10 AM CST Requesting TSH Document Contains Addenda Addendum by ROBERT JIANG RN on 26 February 2012 10:11:31 DIVIDEND CLERK Orders pended. Addendum by VICKEY HOLT DNP, FNP on 26 February 2012 09:28:44 DIVIDEND CLERK From: VICKEY HOLT DNP, FNP To: ROBERT JIANG RN; Sent: 02/26/2012 09:28:44 DIVIDEND CLERK Subject: RE: Requesting TSH Addendum by VICKEY HOLT DNP, FNP on 26 February 2012 09:28:42 DIVIDEND CLERK Yes I am fine with that, thank you. From: ROBERT JIANG RN To: VICKEY HOLT DNP, FNP; Sent: 02/26/2012 09:10:11 DIVIDEND CLERK Subject: Requesting TSH Marcial called stating she is coming in for labs to recheck diabetes in the next couple of weeks. She states she has had her thyroid level checked before, has it done every now and then because she hasa significant family hx of thyroid issues (mom, sister) and her level has been slightly elevated in the past. I look through labs and don't find any TSH levels in the last couple of years, but wondering if you would approve adding a TSH to her next labs. I can place the order if you approve. Thank you. Source: [facility] POWERCHART Document Id: [id number] Electronically signed by Sae, [facility] Burial Needs Salesperson [phone] at 07/19/2016 11:11 PM CDT Miscellaneous - Conversion, Historical Provider Ser - 01/29/2012 11:41 AM DIVIDEND CLERK Med Management Document Contains Addenda Addendum by JENA BEYER V on 29 January 2012 12:33:38 DIVIDEND CLERK called to scofields Addendum by VICKEY HOLT DNP, FNP on 29 January 2012 12:06:06 DIVIDEND CLERK From: VICKEY HOLT DNP, FNP To: JENA BEYER V; Sent: 01/29/2012 12:06:06 DIVIDEND CLERK Subject: RE: Med Management Addendum by VICKEY HOLT DNP, FNP on 29 January 2012 12:05:59 DIVIDEND CLERK completed. From: JENA BEYER V To: VICKEY HOLT DNP, RIA; JENA BEYER V; Sent: 01/29/2012 11:41:03 DIVIDEND CLERK Subject: Med Management Submitted: Order Order: alprazolam (Xanax 0.5 mg oral tablet) 1 tab(s) PO q8hr Take for anxiety. Qty: 25 tab(s) Refills: 1 Anxiety Print - [id number] Signed by JENA BEYER V 01/29/2012 11:40:18 [facility] shows this was filled 08/20/10 when last written Source: [employer] Document Id: [id number] Miscellaneous - Conversion, Historical Provider Ser - 01/29/2012 11:39 AM DIVIDEND CLERK simvastatin From: JENA BEYER V Sent: 01/29/2012 11:39:15 DIVIDEND CLERK Subject: simvastatin 30 day refill of simvastatin sent to [facility] per protocol. Orders have been pended already. LVM for pt to schedule labs/visit prior to next refill request Source: [employer] Document Id: [id number] documented in this encounter Plan of Treatment Not on filedocumented as of this encounter Visit Diagnoses Not on filedocumented in this encounter
--- OUTSIDE RECORDS SUMMARY | 2021-09-05 08:03 | XMS_ITS | Encounter Summary ---
:1945 Author Organization [facility] Address [address] [place] [id number] Care Team Providers Name Role Phone Unavailable Primary Care Provider Unavailable Encounter Details Date Type Department Care Team Description 04/26/2011 Hospital Encounter HX [facility] Julian Culver M.D. [id number] [place] [address] [phone] (Wo rk) Social History Tobacco Use Types [...] Sign Reading Time Taken Comments Blood Pressure 167/78 04/26/2011 7:31 PM CLIENT SPECIALIST Pulse 74 04/26/2011 7:31 PM CLIENT SPECIALIST Temperature - - Respiratory Rate 16 04/26/2011 7:31 PM CLIENT SPECIALIST Oxygen Saturation - - Inhaled Oxygen Concentration - - Weight 86 kg (189 lb 9.5 oz) 04/26/2011 7:31 PM CLIENT SPECIALIST Height - - Body Mass Index - - documented in this encounter Discharge Summaries David Fisher R.N. - 04/26/2011 11:07 PM CST ED Discharge Instructions [facility] [address] [place] [address] Name: MARCIAL BAZAN Date of : 1945 12:00 AM Visit Date: 04/26/2011 7:11 PM Address: [address] [place] [id number] Primary Care Provider: VICKEY HOLT DNP, ORDERLY IMPORTANT: [facility] in [place] would like to thank you for allowing us to assist you with your healthcare needs. The following includes patient education materials and informationregarding your injury/illness. Chief Complaint: PAIN ON LEFT SIDE Follow-Up Instructions: With: Address: When: USE A STRAINER TO CATCH THE STONE AND SAVE FOR STONE ANALYSIS Within As Needed Comments: With: Address: When: VICKEY HOLT [address] [place] [address] Business (1) In 7 days 05/03/2011 Comments: Patient Education Materials: [id number] KIDNEY STONE (w/ colic) The sharp cramping pain and nausea/vomiting that you have is due to a small stone which has formed in the kidney and is now passing down a narrow tube (ureter) on its way to your bladder. Once it reaches your bladder, the pain will stop. The stone may pass in your urine stream in one piece. [The size may be 1/16 to 1/4 (1-6mm)]. Or, the stone may also break up into jeff fragments which you may noteven notice. Once you have had a kidney stone there is a risk for recurrence in the future. HOME CARE: 1. Drink lots of fluid (at least 8-10 glasses of water a day). 2. Most stones will pass on their own, but may take from a few hours to a few days. Sometimes the stone is too large to pass by itself and special methods will have to be used to remove the stone. 3. Each time you urinate, do so in a jar. Pour the urine from the jar through the strainer and into the toilet. Continue doing this until 24 hours after your pain stops. By then, if there was a kidney stone, it should pass from your bladder. Some stones dissolve into sand-like particles and pass rightthrough the strainer. In that case, you won't ever see a stone. 4. Save any stone that you find in the strainer and bring it to your doctor for analysis. It may be possible to prevent certain types of stones from forming. Therefore, it is important to know what kind of stone you have. 5. Try to stay as active as possible since this will help the stone pass. Do not stay in bed unless your pain prevents you from getting up. You may notice a red, pink or brown color to your urine. Thisis normal while passing a kidney stone. FOLLOW UP with your doctor or return to this facility if the pain lasts more than 48 hours. [NOTE: If you had an X-ray or CT scan, it will be reviewed by a specialist. You will be notified of any new findings that may affect your care.] GET PROMPT MEDICAL ATTENTION if any of the following occur: ?? Pain that is not controlled by the medicine given ?? Repeated vomiting or unable to keep down fluids ?? Weakness, dizziness or fainting ?? Fever over 100.0?? F (37.8?? C) ?? Passage of solid red or brown urine (can't see through it) or urine with lots of blood clots Unable to pass urine for 8 hours and increasing bladder pressure ?? [id number] [employer], [address] [place] [address]. All rights reserved. This information is not intended as a substitute for professional medical care. Always follow your healthcare professional's instructions. ED Tests and Procedures: Order Status Automated Diff-5 Part Completed XR Abdomen 2 Views Completed Hemoglobin A1c Completed CT Abdomen/Pelvis w/ contrast Completed Urinalysis with Microscopic if Indicated Completed CBC (includes Auto Differential) Completed Comprehensive Metabolic Panel Completed Amylase Level Completed Discharge Prescriptions & Home Medications: Medication/Strength Dose Route Frequency Indications/Special Instructions/Comments hydrocodone-acetaminophen (Vicodin 5 mg-500 mg oral tablet) 1 to 2 tablets Oral every 6 hours as needed for Pain No more than 4,000mg acetaminophen/24hrs ketorolac (Toradol 10 mg oral tablet) See Instructions ONE PILL PO THREE TIMES PER DAY NEEDED FOR PAIN metformin (metformin 1000 mg oral tablet, extended release) 1,000 mg Oral once a day Take for high blood sugars. amlodipine (Norvasc 2.5 mg oral tablet) 2.5 [...] day Take with food for heart health. Comment: Attention: If you have any medications at home not on this list, DO NOT take them until you contact your provider for clarification. Medication Reconciliation: Reconciliation is a process of identifying the most accurate list of all medications a patient is taking - including name, dosage, frequency, and route - and using this list to provide to the patient information about how to take those medications. MARCIAL BAZAN or sherwin has reviewed the home medications you have listed with us. Review the following instructions: You have NOT received any prescriptions and you have told us you are not currently taking any home medications You have NOT received any prescriptions. You have been provided a discharge medications list and you may CONTINUE taking your medications as previously prescribed by your regular providers. You have received the listed prescriptions and BEGIN all listed prescriptions as directed. Since you have listed no home medications, please check with your family doctor if you are taking any other medications. You have received the listed prescriptions and BEGIN all listed prescriptions as directed. Youhave been provided a discharge medications list and you may CONTINUE all home medications as previously prescribed by your regular providers. You have received the listed prescriptions and BEGIN all listed prescriptions as directed. Youhave been provided a discharge medications list. The following CHANGES have been made to your medication list; Otherwise, CONTINUE all home medications as previously prescribed by your regular provider. IMPORTANT: We examined and treated you today on an emergency basis only. This was not a substitute for, or an effort to provide, complete medical care. In most cases, you must let your doctor check youagain. Tell your doctor about any new or lasting problems. We cannot recognize and treat all injuries or illnesses in one Emergency Department visit. If you had special tests, such as EKG's or X- rays, we will review them again within 24 hours. We will call you if there are any new suggestions. Please follow the instructions above carefully. If you are being transferred to another facility your followup plan of care will be determined by the receiving facility. If you are a patient that is being discharged from the Emergency Department after receiving narcotics or other medications that may impair your judgment you may be a risk to yourself or others if you operate a motor vehicle. We recommend that you arrange a ride home with a responsible democrat. I, MARCIAL BAZAN , or responsible democrat have received this information and my questions have been answered. I have discussed any challenges I see with this plan with the nurse or physician. Patient Signature or Responsible Libertarian/Relationship Date/Time Provider Signature Date/Time Medication Reconciliation: Reconciliation is a process of identifying the most accurate list of all medications a patient is taking - including name, dosage, frequency, and route - and using this list to provide to the patient information about how to take those medications. MARCIAL BAZAN or sherwin has reviewed the home medications you have listed with us. Review the following instructions: You have NOT received any prescriptions and you have told us you are not currently taking any home medications You have NOT received any prescriptions. You have been provided a discharge medications list and you may CONTINUE taking your medications as previously prescribed by your regular providers. You have received the listed prescriptions and BEGIN all listed prescriptions as directed. Since you have listed no home medications, please check with your family doctor if you are taking any other medications. You have received the listed prescriptions and BEGIN all listed prescriptions as directed. Youhave been provided a discharge medications list and you may CONTINUE all home medications as previously prescribed by your regular providers. You have received the listed prescriptions and BEGIN all listed prescriptions as directed. Youhave been provided a discharge medications list. The following CHANGES have been made to your medication list; Otherwise, CONTINUE all home medications as previously prescribed by your regular provider. IMPORTANT: We examined and treated you today on an emergency basis only. This was not a substitute for, or an effort to provide, complete medical care. In most cases, you must let your doctor check youagain. Tell your doctor about any new or lasting problems. We cannot recognize and treat all injuries or illnesses in one Emergency Department visit. If you had special tests, such as EKG's or X- rays, we will review them again within 24 hours. We will call you if there are any new suggestions. Please follow the instructions above carefully. If you are being transferred to another facility your followup plan of care will be determined by the receiving facility. If you are a patient that is being discharged from the Emergency Department after receiving narcotics or other medications that may impair your judgment you may be a risk to yourself or others if you operate a motor vehicle. We recommend that you arrange a ride home with a responsible democrat. BENI Matta LURENE MURIEL , or responsible democrat have received this information and my questions have been answered. I have discussed any challenges I see with this plan with the nurse or physician. Patient Signature or Responsible Libertarian/Relationship Date/Time Provider Signature Date/Time This document has images extracted. Please consider using [employer] for all your patient education needs. Source: [facility] POWERCHART Document Id: [id number] NT SPECIALIST David Fisher R.N. - 04/26/2011 11:07 PM CST ED Depart Summary [facility] Emergency Department Clinical Discharge Summary PERSON INFORMATION Name MARCIAL BAZAN Age 65 Years 1945 12:00 AM Sex Female Language Bulgarian PCP VICKEY HOLT DNP, ORDERLY Marital Status Visit Id Visit Reason PAIN ON LEFT SIDE Specialty Enc Type Emergency Med Service Emergency Medicine Referred by Track Group [facility] ED Discharge 04/26/2011 11:07 PM Tracking Id [id number] Checkout 04/26/2011 11:07 PM Checkin 04/26/2011 7:11 PM Acuity 4 -Less Urgent Dispo Type * Discharged to Home or Self Care Arrival 04/26/2011 7:11 PM Reg Status LOS 000 03:56 Address: [address] [place] [phone] Comment: PROVIDER INFORMATION Provider Role Provider Contact Time DAVID FISHER CURING SUPERVISOR Nurse 04/26/11 19:31 JERMAN ARIAS MD ED Provider 04/26/11 19:51 DIAGNOSIS Urination painful; Colic*; Kidney stone NOS; Abdominal pain Comment: PATIENT EDUCATION INFORMATION Instructions: KIDNEY STONE w/ Colic Follow up: With: Address: When: USE A STRAINER TO CATCH THE STONE AND SAVE FOR STONE ANALYSIS Within As Needed Comments: With: Address: When: VICKEY HOLT [address] [place] [address] [facility] (1) In 7 days 05/03/2011 Comments: Source: [facility] POWERCHART Document Id: [id number] NT SPECIALIST documented in this encounter Nursing Notes David Fisher R.N. - 04/26/2011 10:47 PM CST ED Pain Assessment ED Pain Assessment Entered On: 04/26/2011 22:48 CLIENT SPECIALIST Performed On: 04/26/2011 22:47 CLIENT SPECIALIST by DAVID FISHER RN Pain Assessment Pain Symptoms : Yes Pain Medication Requested : Yes DAVID FISHER RN - 04/26/2011 22:47 CLIENT SPECIALIST Source: [facility] SnaptripCHART Document Id: [id number] CLIENT SPECIALIST!4 NT SPECIALIST David Fisher R.N. - 04/26/2011 7:31 PM CST ED Primary Assessment ED Primary Assessment Entered On: 04/26/2011 19:41 CLIENT SPECIALIST Performed On: 04/26/2011 19:31 CLIENT SPECIALIST by DAVID FISHER RN Reason For Visit Problems(Active) Anxiety disorder NOS Name of Problem: Anxiety disorder NOS ; Onset Date: 1987 ; Recorder: PETRA RUSSELL LPN; Confirmation: Confirmed ; Classification: Nursing ; Code: 1231 ; Contributor System: PowerChart ; Last Updated: 03/19/2010 16:21 CLIENT SPECIALIST ; Life Cycle Date: 03/19/2010 ; LifeCycle Status: Active ; Responsible Provider: PETRA RUSSELL LPN; Vocabulary: ICD-9-CM Hyperlipidemia/Dyslipidemia Name of Problem: Hyperlipidemia/Dyslipidemia ; Onset Date: 2004 ; Recorder: PETRA RUSSELL LPN; Confirmation: Confirmed ; Classification: Nursing ; Code: 1231 ; Contributor System: PowerChart ; Last Updated: 03/19/2010 16:15 CLIENT SPECIALIST ; Life Cycle Date: 02/2010 ; Life Cycle Status: Active ; Responsible Provider: PETRA RUSSELL LPN; Vocabulary:ICD-9-CM NIDDM [non-insulin dependent diabetes mellitus] Name of Problem: NIDDM [non- insulin dependent diabetes mellitus] ; Onset Date: 2007 ; Recorder: PETRA RUSSELL LPN; Confirmation: Confirmed ; Classification: Nursing ; Code: 1231 ; Contributor System: PowerChart ; Last Updated: 03/19/2010 16:14 CLIENT SPECIALIST ; Life Cycle Date: 03/19/2010 ; Life Cycle Status: Active ; Responsible Provider: PETRA RUSESLL LPN; Vocabulary: ICD-9-CM Osteoarthritis Name of Problem: Osteoarthritis ; Recorder: PETRA RUSSELL LPN; Confirmation: Confirmed ; Classification: Nursing ; Code: 1231 ; Contributor System: PowerChart ; Last Updated: 03/19/2010 16:17 CLIENT SPECIALIST ; Life Cycle Date: 03/19/2010 ; Life Cycle Status: Active ; Responsible Provider: PETRA RUSSELL LPN; Vocabulary: ICD-9-CM ; Comments: 01/07/2011 9:57 - VICKEY HOLT DNP, ORDERLY date of onset unknown Osteoporosis NOS Name of Problem: Osteoporosis NOS ; Recorder: PETRA RUSSELL LPN; Confirmation: Confirmed ; Classification: Nursing ; Code: 1231 ; Contributor System: PowerChart ; Last Updated: 03/19/2010 16:17 CLIENT SPECIALIST ; Life Cycle Date: 03/19/2010 ; Life Cycle Status: Active ; Responsible Provider: PETRA RUSSELL LPN; Vocabulary: ICD-9-CM ; Comments: 01/07/2011 10:08 - VICKEY HOLT DNP, ORDERLY date of onset unknown Rosacea Name of Problem: Rosacea ; Onset Date: 2006 ; Recorder: PETRA RUSSELL LPN; Confirmation: Confirmed ; Classification: Nursing ; Code: 1231 ; Contributor System: PowerChart ; Last Updated: 03/19/2010 16:18 CLIENT SPECIALIST ; Life Cycle Date: 03/19/2010 ; Life Cycle Status: Active ; Responsible Provider: PETRA RUSSELL LPN; Vocabulary: ICD-9-CM TIA [Transient ischemic attack] Name of Problem: TIA [Transient ischemic attack] ; Onset Date: 2007 ; Recorder: PETRA RUSSELL LPN; Confirmation: Confirmed ; Classification: Nursing ; Code: 1231 ; Contributor System: PowerChart ; Last Updated: 03/19/2010 16:19 CLIENT SPECIALIST ; Life Cycle Date: 03/19/2010 ; Life Cycle Status: Active ; Responsible Provider: PETRA RUSSELL LPN; Vocabulary: ICD-9-CM Diagnoses(Active) Urination painful Date: 04/26/2011 ; Diagnosis Type: Reason For Visit ; Confirmation: Complaint of ; Clinical Dx: Urination painful ; Classification: Medical ; Clinical Service: Emergency medicine ; Code: PNED ; Probability: 0 ; Diagnosis Code: [id number] Triage Chief Complaint Description : 65 yr bruno presents with possible UTI, admits to left flank reveles that radiates to the abdomen . Pt states she has had perineal pressure for 2 weeks or so . Information Given By : Patient Accompanied By : Spouse Mode of Arrival ED : Private vehicle Track : Medical Languages : Bulgarian Vital Signs Assessed : Yes DAVID FISHER RN - 04/26/2011 19:31 CLIENT SPECIALIST Vital Signs Temperature Core : 36.4C(Converted to: 97.5DegF) (LOW) Peripheral Pulse Rate : 74/min Respiratory Rate : 16/min Systolic Blood Pressure : 167mmHg (>HHI) Diastolic Blood Pressure : 78mmHg NIBP Mean : 108mmHg SpO2 : 100% Oxygen Saturation Monitoring Frequency : Intermittent Oxygen Therapy : Room air Actual Weight : 86kg Actual Weight Conversion to Pounds : 189.200lb DAVID FISHER RN - 04/26/2011 19:31 CLIENT SPECIALIST Pain Assessment Pain Symptoms : Yes DAVID FISHER RN - 04/26/2011 19:31 CLIENT SPECIALIST ED Physician Notification Time ED Physician Notification Time : 04/26/2011 19:36 CLIENT SPECIALIST DAVID FISHER RN - 04/26/2011 19:31 CLIENT SPECIALIST RASHEED RASHEED Level 1 : No RASHEED Level 2 : No RASHEED Level 3 : One DAVID FISHER RN - 04/26/2011 19:31 CLIENT SPECIALIST DCP GENERIC CODE Tracking Acuity : 4 -Less Urgent Tracking Group : [facility] ED DAVID FISHER RN - 04/26/2011 19:31 CLIENT SPECIALIST Allergy Latex Reaction : No Latex Hives/Itch : No Latex Congestion/Eye Irr/Breathing : No Latex Symptom Progression : No Latex Previous Test : No DAVID FISHER RN - 04/26/2011 19:31 CLIENT SPECIALIST Allergies (Active) azithromycin Estimated Onset Date: Unspecified ; Created By: PETRA RUSSELL LPN; Reaction Status: Active ; Category: Drug ; Substance: azithromycin ; Type: Allergy ; Updated By: PETRA RUSSELL LPN; Reviewed Date: 04/17/2011 18:05 CLIENT SPECIALIST Benicar Estimated Onset Date: Unspecified ; Created By: PETRA RUSSELL LPN; Reaction Status: Active ; Category: Drug ; Substance: Benicar ; Type: Allergy ; Updated By: PETRA RUSSELL LPN; Reviewed Date: 04/17/2011 18:05 CLIENT SPECIALIST ID Screen TB Symptoms Grid Bloody Sputum : No Fatigue : No Fever : No Loss of Appetite : No Night Sweats : No Persistent Cough Greater Than 3 Weeks : No Weight Loss : No DAVID FISHER RN - 04/26/2011 19:31 CLIENT SPECIALIST Alcohol and Drug Use : No Employee of Institutional Living Environment : No Health Care Employee : No History of Exposure to TB : No History of Positive Chest X-Ray for TB : No History of Positive TB Skin Test : No Homeless : No Known Immunosuppression : No Recent Immigrant : No Resident of Institutional Living Environment : No DAVID FISHER RN - 04/26/2011 19:31 CLIENT SPECIALIST Syndrome Surveillance Symptoms Grid Headache : No Illness With Generalized Rash : No Muscle Pain : No New or Worsening Cough : No Shortness of Breath : No Recent Exposure to Communicable Disease : No DAVID FISHER RN - 04/26/2011 19:31 CLIENT SPECIALIST Travel Within Last 14 Days : No DAVID FISHER RN - 04/26/2011 19:31 CLIENT SPECIALIST Immunizations Pneumovac : Last 5 years Influenza : This year DAVID FISHER RN - 04/26/2011 19:31 CLIENT SPECIALIST Respiratory Airway : Patent Respirations : Unlabored Respiratory Pattern : Regular DAVID FISHER RN - 04/26/2011 19:31 CLIENT SPECIALIST Cardiovascular Heart Rhythm : Regular Skin Color : Normal for ethnicity Skin Description : Dry Skin Temperature : Warm DAVID FISHER RN - 04/26/2011 19:31 CLIENT SPECIALIST Neurological Level of Consciousness : Alert Orientation : Oriented x 3 Characteristics of Speech : Appropriate for age DAVID FISHER RN - 04/26/2011 19:31 CLIENT SPECIALIST ED Psychosocial Affect/Behavior : Calm, Cooperative, Appropriate Domestic Abuse Concerns : None DAVID FISHER RN - 04/26/2011 19:31 CLIENT SPECIALIST Domestic Violence Screen Partner Emotional/Physical Abuse Hx : No DAVID FISHER RN - 04/26/2011 19:31 CLIENT SPECIALIST Gastrointestinal Nutrition ED : Adequate DAVID FISHER RN - 04/26/2011 19:31 CLIENT SPECIALIST Musculoskeletal Fall Prevention Education Provided : NA DAVID FISHER RN - 04/26/2011 19:31 CLIENT SPECIALIST Social Habits Tobacco Use/Currently Using : No Tobacco Use/Advised to Quit : No Exposure to Tobacco Smoke : Care provider denies smoking in home Smoking Status : Never smoker DAVID FISHER RN - 04/26/2011 19:31 CLIENT SPECIALIST Alcohol Use Grid Alcohol Use : No DAVID FISHER RN - 04/26/2011 19:31 CLIENT SPECIALIST Recreational Drug Use Grid Drug Use : None DAVID FISHER RN - 04/26/2011 19:31 CLIENT SPECIALIST Source: [facility] SnaptripCHART Document Id: [id number] CLIENT SPECIALIST!102 NT SPECIALIST documented in this encounter ED Notes David Fisher R.N. - 04/26/2011 11:00 PM CST ED Treatments and Procedures ED Treatments and Procedures Entered On: 04/26/2011 23:33 CLIENT SPECIALIST Performed On: 04/26/2011 23:00 CLIENT SPECIALIST by DAVID FISHER RN Peripheral IV Peripheral IV Assess/Intervention Grid Peripheral IV #1 IV Activity : Discontinue Number of Attempts : 1 Date of Insertion : 04/26/2011 CLIENT SPECIALIST IV Site : Hand Laterality : Left Catheter Size : 18 Catheter Type : Protective DAVID FISHER RN - 04/26/2011 23:32 CLIENT SPECIALIST Source: [facility] SnaptripCHART Document Id: [id number] CLIENT SPECIALIST!11 NT SPECIALIST David Fisher R.N. - 04/26/2011 10:47 PM CST ED Disposition Summary ED Disposition Summary Entered On: 04/26/2011 22:47 CLIENT SPECIALIST Performed On: 04/26/2011 22:47 CLIENT SPECIALIST by DAVID FISHER RN ED Disposition Summary Accompanied By : Spouse Mode of Discharge : Ambulatory Transportation : Private vehicle Printed Discharge Instructions Given to Patient : Yes DAVID FISHER RN - 04/26/2011 22:47 CLIENT SPECIALIST Source: [facility] SnaptripCHART Document Id: [id number] CLIENT SPECIALIST!6 NT SPECIALIST David Fisher R.N. - 04/26/2011 9:25 PM CST ED Treatments and Procedures ED Treatments and Procedures Entered On: 04/26/2011 23:32 CLIENT SPECIALIST Performed On: 04/26/2011 21:25 CLIENT SPECIALIST by VAISHALI, DAVID M RN Peripheral IV Peripheral IV Assess/Intervention Grid Peripheral IV #1 IV Activity : Start Number of Attempts : 1 Date of Insertion : 04/26/2011 CLIENT SPECIALIST IV Site : Hand Laterality : Left Catheter Size : 18 Catheter Type : Protective Site Condition : No complications Drainage Description : None DAVID FISHER RN - 04/26/2011 23:31 CLIENT SPECIALIST Source: [facility] mobifriends Document Id: [id number] CLIENT SPECIALIST!13 NT SPECIALIST Jerman Arias M.D. - 04/26/2011 7:51 PM CST Urination painful Patient: MARCIAL BAZAN Age: 65 years Sex: Female : 1945 Author: JERMAN ARIAS MD Attachments: None Associated Diagnosis: Abdominal pain Basic Information Additional information:: Chief Complaint from Nursing Triage Note : Chief Complaint Description. 04/26/2011 19:31 CLIENT SPECIALIST Chief Complaint Description 65 yr bruno presents with possible UTI, admits to left flank reveles that radiates to the abdomen . Pt states she has had perineal pressure for 2 weeks or so . History of Present Illness The patient presents with dysuria andoff an on .. The onset was 14 days ago. The course/duration of symptoms is fluctuating in intensity. Radiating pain: Left side of the back had pain today , thatstarted in her back and left flank area and radiated to the left groin. moderately severe pain lasted for about two hours prior to coming to the ER . flank. The character of symptoms is dull. The degree at onset was severe and 10 /10. . The degree at present is moderate. Exacerbating factors consist of movement. The relieving factor is rest. Risk factors consist of diabetes mellitus hypertension. Therapy today: none. Associated symptoms: nausea, abdominal pain, back pain, pelvic pain, Patient denies any history of rectal or vaginal prolapse, feels like of nad on pressure in thepelvic area , last colonoscopy within 3 years ., also complains of pressure whiile urinating. , denies fever, denies chills, denies vomiting, denies hematuria, denies urethral discharge, no rash, denies diarrhea and not voiding small amounts. Review of Systems Constitutional symptoms: Fever. Skin symptoms: no jaundice no rash, no pruritus, no abrasions, no breakdown. Eye symptoms: no recent vision problems no pain, no discharge. ENMT symptoms: no ear pain no sore throat. Respiratory symptoms: no shortness of breath no orthopnea, no cough, no hemoptysis. Cardiovascular symptoms: no chest pain no palpitations, no tachycardia, no syncope. Gastrointestinal symptoms: Abdominal pain, nausea no vomiting, no diarrhea, no constipation, no rectal bleeding, no rectal pain. Genitourinary symptoms: Dysuria no hematuria, no vaginal bleeding, no vaginal discharge. Musculoskeletal symptoms: no back pain no Muscle pain, no Joint pain. Neurologic symptoms: no headache no dizziness, no altered level of consciousness, no numbness. Psychiatric symptoms: no anxiety no depression, no sleeping problems. Endocrine symptoms: no polyuria no polydipsia, no polyphagia, no hyperglycemia, no hypoglycemia. Hematologic/Lymphatic symptoms: bleeding tendency negative bruising tendency negative, no petechiae, no gum bleeding. Allergy/immunologic symptoms: no seasonal allergies Additional review of systems information:All other systems reviewed and otherwise negative. Health Status Allergies: . Allergic Reactions (Selected) Severity not Documented Benicar- No reactions were documented. Azithromycin- No reactions were documented. Medications: . Prescriptions and Home Medications aspirin (aspirin 81 mg oral tablet), 1 tab(s), PO, Daily, Take with food for heart health., 90 tab(s) glipiZIDE (glipiZIDE 5 mg oral tablet), 5 mg, 1 tab(s), PO, Daily, 30 minutes before breakfast for high blood sugars., 90 tab(s) alprazolam (Xanax 0.5 mg oral tablet), 0.5 mg, 1 tab(s), PO, q8hr, Take for anxiety., 25 tab(s), PRN: Anxiety clobetasol topical (clobetasol topical 0.05% solution), 1 shauna, Topical, 2xDay, 50 mL, PRN simvastatin (simvastatin 10 mg oral tablet), 10 mg, 1 tab(s), PO, Bedtime, Take for high cholesterol., 90 tab(s) amlodipine (Norvasc 2.5 mg oral tablet), 2.5 mg, 1 tab(s), PO, Daily, Take for high blood pressure.,90 tab(s) metformin (metformin 1000 mg oral tablet, extended release), 1,000 mg, 1 tab(s), PO, Daily, Take forhigh blood sugars., 90 tab(s) Past Medical/ Family/ Social History Medical history: Medical history. No active or resolved past medical history items have been selected or recorded. Surgical history: Surgical history. Colonoscopy ([id number]) in 2008 at 63 Years. Comments: 09/18/2010 09:23 - JOHN CONCEPCION LPN WNL Biopsy of breast ([id number]) in 1986 at 40 Years. Comments: 09/24/2010 11:37 - VICKEY HOLT DNP, ORDERLY date unknown Appendectomy ([id number]) in 1959 at 14 Years. History of repair of umbilical hernia ([id number]). Comments: 03/19/2010 16:22 - PETRA RUSSELL LPN Times two 1997, 2000 section ([id number]). Comments: 03/19/2010 16:23 - PETRA RUSSELL LPN [facility] 1964, 1968 Family history: Family history. CA - Breast cancer Mother () Diabetes mellitus Brother Brother CA - Lung cancer Father () Coronary artery disease Father () CA - Cancer of prostate Brother Problem list: . All Problems Anxiety disorder NOS / 300.00 / Confirmed Hyperlipidemia/Dyslipidemia / 272.4 / Confirmed NIDDM [non-insulin dependent diabetes mellitus] / 250.00 / Confirmed Osteoarthritis / 715.90 / Confirmed date of onset unknown Osteoporosis NOS / 733.00 / Confirmed date of onset unknown Rosacea / 695.3 / Confirmed TIA [Transient ischemic attack] / 435.9 / Confirmed Physical Examination Vital signs: Vital Signs, 04/26/2011 19:31 CLIENT SPECIALIST Temperature Core 36.4 C LOW Peripheral Pulse Rate 74 /min Respiratory Rate 16 /min SpO2 100 % Systolic Blood Pressure 167 mmHg >HHI Diastolic Blood Pressure 78 mmHg Mean Arterial Pressure 108 mmHg Measurements, 04/26/2011 19:31 CLIENT SPECIALIST Actual Weight 86 kg Oxygen saturation Oxygen Therapy & Oxygenation Information. 04/26/2011 19:31 CLIENT SPECIALIST Oxygen Therapy Room air Oxygen Saturation Monitoring Frequency Intermittent General: Alert. moderate distress. Skin: Warm Head: Normocephalic. atraumatic. Neck: Supple. trachea midline. no tenderness. Eye: Pupils are equal, round and reactive to light. extraocular movements are intact. normal conjunctiva. vision unchanged. Ears, nose, mouth and throat: Tympanic membranes clear. Oral mucosa moist. No pharyngeal erythemaor exudate. Cardiovascular: Regular rate and rhythm. No murmur. Normal peripheral perfusion. Respiratory: Lungs are clear to auscultation. respirations are non-labored. breath sounds are equal. Chest wall: No tenderness. No deformity. Back: Nontender. Normal range of motion. Normal alignment. Musculoskeletal: Normal ROM. normal strength. no tenderness. no swelling. Gastrointestinal: Soft. Nontender. Genitourinary: No tenderness. no discharge. normal external genitalia. Neurological: Alert and oriented to person, place, time, and situation. No focal neurological deficit observed. CN II-XII intact. normal sensory observed. normal motor observed. normal speech observed. Lymphatics: No lymphadenopathy Psychiatric: Cooperative. appropriate mood & affect. normal judgment. Medical Decision Making OrdersLaunch Orders, Laboratory: Urinalysis with Microscopic if Indicated (Order Processing): Stat, 04/26/2011 19:52 CLIENT SPECIALIST, Once, Urine, Clean Void UrineLaunch Orders, Laboratory: Amylase Level (Order Processing): Stat, 04/26/2011 20:03 CLIENT SPECIALIST, Once, Blood Comprehensive Metabolic Panel (Order Processing): Stat, 04/26/2011 20:03 CLIENT SPECIALIST, Once, Blood CBC (includes Auto Differential) (Order Processing): Stat, 04/26/2011 20:03 CLIENT SPECIALIST, Once, BloodLaunch Orders, Radiology: XR Abdomen 2 Views (Order Processing): 04/26/2011 20:03 CLIENT SPECIALIST, PAIN LEFT FLANK AND PELVIC PRESSURE, Stat, Patient Bed, OnceLaunch Orders, Radiology: CT Abdomen/Pelvis w/ contrast (Order Processing): 04/26/2011 20:51 CLIENT SPECIALIST, ABDOMINAL AND PELVIC PAIN RULE OUT ACUETE DIVERTICULITIS, Stat, Patient Bed, OnceLaunch Orders. Pharmacy: ketorolac (Order Processing): 30 mg, IV Push, Once Results review:Lab results : Lab View. 04/26/2011 20:00 CLIENT SPECIALIST UUA Source. 04/26/2011 20:15 CLIENT SPECIALIST Hgb 11.0 g/dL LOW Hct 32.9 % LOW WBC 11.3 x10(9)/L HI RBC 3.67 x10(9)/L LOW MCV 90 fL RDW 13.5 % Platelet 207 x10(9)/L Neutro % 75.3 % Lymph % 16.1 % LOW Garza % 6.1 % Eos % 2.1 % Baso % 0.4 % Neutro Absolute 8.50 10(9)/L HI Lymph Absolute 1.82 x10(9)/L Garza Absolute 0.69 x10(9)/L Eos Absolute 0.24 x10(9)/L Baso Absolute 0.04 x10(9)/L Differential? Auto Sodium Lvl 136.1 mM/L Potassium Lvl 3.7 mM/L Chloride 104 mM/L CO2 22.8 mmol/L LOW AGAP 9 mmol/L LOW Alkaline Phosphatase 51 U/L Glucose Lvl 161 mg/dL HI Creatinine 1.04 mg/dL EGFR 53 mL/min/1.73m2 EGFR >60 mL/min NA BUN 17 mg/dL BUN/Creat Ratio 16.0 Calcium Lvl 9.3 mg/dL Protein Total 7.3 g/dL Albumin Lvl 4.0 g/dL AST 17 U/L ALT 18 U/L Bili Total 0.2 mg/dL Amylase Lvl 48 U/L Hgb A1c 7.49 % HI 04/26/2011 20:00 CLIENT SPECIALIST UA Color Yellow UA Spec Grav >=1.030 UA pH 5.0 UA Protein Negative UA Glucose Negative UA Ketones Trace UA Bili Negative UA Urobilinogen 0.2 UA Blood Negative UA Nitrite Negative UA Leuk Est Negative UA Appear Clear Abdominal/KUB X-rayWithin normal limits. Radiology results:Computed tomography, 3.5 MM STONE AT THE LEFT URETEROVESICULAR JUNCTION . NotesPateint has previos history of abdominal hernia repair and previous abdominal surgeries . Reexamination/ Reevaluation Re-examination/Re-evaluation:Vital signs Results included from flowsheet : Vital Signs, 04/26/2011 19:31 CLIENT SPECIALIST Temperature Core 36.4 C LOW Peripheral Pulse Rate 74 /min Respiratory Rate 16 /min SpO2 100 % Systolic Blood Pressure 167 mmHg >HHI Diastolic Blood Pressure 78 mmHg Mean Arterial Pressure 108 mmHg Course Unchanged, Pain status Increased, Assessment more localized pain in lower left abdomen , TORADOL HELPED WITH THE PAIN . Procedure Procedure notes: Scribble notes Impression and Plan Diagnosis Abdominal pain (Discharge, Emergency medicine, Medical) Renal colic with 3.5 mm stone in left distal ureter Discharge plan Condition: Improved. Dispositioned: To home. Patient was given the following educational materials: KIDNEY STONE w/ Colic. Follow up with: USE A STRAINER TO CATCH THE STONE AND SAVE FOR STONE ANALYSIS Within As Needed; CORRINE In 7 days 05/03/2011. Counseled: Patient, Family. Electronically Signed By: EJRMAN ARIAS MD On: 04/26/2011 10:46 PM Modified by and Electronically Signed by: JERMAN ARIAS MD On: 04/26/2011 09:04 PM This document has images extracted. Source: [facility] SnaptripCHART Document Id: {[id number]} NT SPECIALIST documented in this encounter Miscellaneous Notes Miscellaneous - David Fisher RJairoN. - 04/26/2011 10:48 PM CST Valuables/Belongings Valuables/Belongings Entered On: 04/26/2011 22:48 CLIENT SPECIALIST Performed On: 04/26/2011 22:48 CLIENT SPECIALIST by DAVID FISHER RN Valuables/Belongings Home Medication Disposition : None brought in with patient DAVID FISHER RN - 04/26/2011 22:48 CLIENT SPECIALIST Source: [facility] mobifriends Document Id: [id number] CLIENT SPECIALIST!3 NT SPECIALIST Miscellaneous - David Fisher R.N. - 04/26/2011 7:11 PM CST Facility Charge Ticket Facility Charge Ticket Entered On: 04/26/2011 22:49 CLIENT SPECIALIST Performed On: 04/26/2011 19:11 CLIENT SPECIALIST by DAVID FISHER RN Facility Charge TVL Level for Facility Charge Ticket : Level 4 [facility] Total Points with Diagnosis Control : 11 [facility] Visit Level : 86519 Level 4 ANIRUDH MOREL - 05/12/2011 17:29 CDT Mode of Arrival ED : Private vehicle [facility] Mode of Arrival Interpreted : Standard [facility] Process Management : None [facility] Order Management : CT/MRI/Ultrasound, Xray - plain films, Lab tests 30 Minutes Critical Care : No [facility] Nursing Assessment : Triage and 1-2 nursing assessments [facility] Disposition : Discharge DAVID FISHER RN - 04/26/2011 22:49 CLIENT SPECIALIST Chief Complaint 8.50.02 Reason For Visit Category : Genitourinary ED Chief Complaint Genitourinary 8.5 : Flank pain TVL Calc : 12 TVL for Facility Charge Ticket Dx : Level 4 DAVID FISHER RN - 04/26/2011 22:49 CLIENT SPECIALIST Source: [facility] POWERCHART Document Id: [id number] CDT!5 Electronically signed by Conversion, [facility] Meat [employer]ader [id number] at 07/19/2016 5:03 PM CDT documented in this encounter Plan of Treatment Not on filedocumented as of this encounter Procedures Procedure Name Priority Date/Time Associated Comments Diagnosis AUTOMATED Routine 04/26/2011 8:15 Results for this DIFFERENTIAL, B PM CLIENT SPECIALIST procedure ar e in the results section. CBC WITH DIFFERENTIAL, Routine 04/26/2011 8:15 R esults for this B PM CLIENT SPECIALIST procedure are i n the results section. HEMOGLOBIN A1C, B Routine 04/26/2011 8:15 Result s for this PM CLIENT SPECIALIST procedure are i n the results section. AMYLASE, TOT, S Routine 04/26/2011 8:15 Results for this PM CLIENT SPECIALIST procedure are i n the results section. COMPREHENSIVE Routine 04/26/2011 8:15 Results fo r this METABOLIC PANEL, S/P PM CLIENT SPECIALIST procedu re are in the results section. URINALYSIS, ROUTINE Routine 04/26/2011 8:00 Resu lts for this PM CLIENT SPECIALIST procedure are i n the results section. documented in this encounter Results (ABNORMAL) Automated Differential (04/26/2011 8:15 PM CLIENT SPECIALIST) [facility] Method Time Signature Neutro % 75.3 42.0 - POWERCHART 77.0 Lymphocytes % 16.1 (L) 23.0 - POWERCHART 44.0 HX Garza % 6.1 2.0 - 11.0 POWERCHART HX Eos % 2.1 1.0 - 5.0 POWERCHART HX Baso % 0.4 0.0 - 1.0 POWERCHART Absolute 8.50 (H) 1.70 - POWERCHART Neutrophils 7.00 109L Lymphocytes 1.82 0.90 - POWERCHART 2.90 X109L Monocytes 0.69 0.20 - POWERCHART 0.80 X109L Eosinophils 0.24 0.04 - POWERCHART 0.40 X109L Absolute 0.04 0.02 - POWERCHART Basophil 0.10 X109L Specimen Anatomical Collection Method Collection Time Receive d Time (Source) Location / / Volume Laterality Blood 04/26/2011 8:15 04/26/2011 PM CLIENT SPECIALIST 8:15 PM CLIENT SPECIALIST Jerman Arias M.D. LAB BLOOD ADD-ON Performing Organization Address City/State/ZIP Code Phon e Number POWERCHART (ABNORMAL) CBC with Differential (04/26/2011 8:15 PM CLIENT SPECIALIST) Patholo gist Method Time Signature Leukocytes 11.3 (H) 4.8 - 10.8 POWERCHART X109L Erythrocytes 3.67 (L) 4.20 - POWERCHART 5.40 X109L Hemoglobin 11.0 (L) 12.0 - POWERCHART 15.5 GDL Hematocrit 32.9 (L) 37.0 - POWERCHART 47.0 MCV 90 81 - 99 FL POWERCHART HX RDW 13.5 11.5 - POWERCHART 14.5 Platelet Count 207 150 - 450 POWERCHART X109L HXDifferential? Auto POWERCHART Specimen (Source) Anatomical Collection Method Collection Time Re ceived Time Location / / Volume Laterality Blood 04/26/2011 8:15 PM CLIENT SPECIALIST Jerman Arias M.D. LAB BLOOD ADD-ON Performing Organization Address City/State/ZIP Code Phon e Number POWERCHART (ABNORMAL) Hemoglobin A1c (04/26/2011 8:15 PM CLIENT SPECIALIST) Analysis Performed At Patho logist Time Signature Hemoglobin A1c, 7.49 (H) 4.00 - POWERCHART B 6.00 Specimen (Source) Anatomical Collection Method Collection Time Re ceived Time Location / / Volume Laterality Blood 04/26/2011 8:15 PM CLIENT SPECIALIST Jerman Arias M.D. LAB BLOOD ADD-ON Performing Organization Address City/State/ZIP Code Phon e Number POWERCHART Amylase, Total (04/26/2011 8:15 PM CLIENT SPECIALIST) P athologist Signature Amylase, Total, 48 25 - 115 UL POWERCHART S Specimen (Source) Anatomical Collection Method Collection Time Re ceived Time Location / / Volume Laterality Blood 04/26/2011 8:15 PM CLIENT SPECIALIST Jerman Arias M.D. LAB BLOOD ADD-ON Performing Organization Address City/State/ZIP Code Phon e Number POWERCHART (ABNORMAL) CMP (Comprehensive Metabolic Panel) (04/26/2011 8:15 PM CLIENT SPECIALIST) Patholo gist Method Time Signature Alanine 18 15 - 37 POWERCHART Amniotransferase, LD UL Albumin, S 4.0 3.5 - 5.0 POWERCHART GDL Alkaline 51 50 - 130 POWERCHART Phosphatase, S UL Aspartate 17 12 - 31 POWERCHART Aminotransferase UL (AST), S Sodium, S 136.1 135.0 - POWERCHART 145.0 MML Potassium, S 3.7 3.6 - 4.8 POWERCHART MML Chloride, S 104 100 - 108 POWERCHART MML CO2 Total 22.8 (L) 23.0 - POWERCHART 29.0 MMOLL BUN (Blood Urea 17 7 - 18 POWERCHART Nitrogen), S MGDL Creatinine, S 1.04 0.60 - POWERCHART 1.30 MGDL Calcium, Total, S 9.3 8.5 - POWERCHART 10.1 MGDL BUN/Creatinine Ratio 16.0 10.0 - POWERCHAR T 20.0 Anion Gap 9 (L) 10 - 20 POWERCHART MMOLL HXeGFR (MDRD) 53 <=61 POWERCHART [id number] 2 Comment: A GFR of <60 mL/min is indicative of chr onic kidney disease. (MDRD calculation valid on patients 18 - 70 years.) eGFR Black/ >60 MLMIN PO WERCHART Bilirubin, Total, S 0.2 0.1 - 1.0 MGDL POWER CHART Total Protein, S 7.3 6.3 - 7.9 GDL POWERCHAR T Glucose 161 (H) 70 - 139 MGDL POWERCHART Specimen (Source) Anatomical Collection Method Collection Time Re ceived Time Location / / Volume Laterality Blood 04/26/2011 8:15 PM CLIENT SPECIALIST Jerman Arias M.D. LAB BLOOD ADD-ON Performing Organization Address City/State/ZIP Code Phon e Number POWERCHART Urinalysis, Routine (04/26/2011 8:00 PM CLIENT SPECIALIST) [facility] gist Method Time Signature HXUr Color Yellow POWERCHART Appearance Clear POWERCHART Glucose Negative POWERCHART HXBILIRUBIN Negative POWERCHART Ketones, QL(U) Trace POWERCHART Specific >=1.030 1.000 - POWERCHART [place], POCT, U 1.030 pH, POCT, Urine 5.0 5.0 - 8.0 POWERCHART Protein, Ur, Dip Negative POWERCHART Urobilinogen 0.2 POWERCHART HXNITRITE Negative POWERCHART HXBLOOD Negative POWERCHART Leukocyte Negative POWERCHART Esterase Source Clean Void POWERCHART Urine Specimen (Source) Anatomical Collection Method Collection Time Re ceived Time Location / / Volume Laterality Urine 04/26/2011 8:00 PM CLIENT SPECIALIST Jerman Arias M.D. LAB URINE ORDERABLES Performing Organization Address City/State/ZIP Code Phon e Number POWERCHART documented in this encounter Visit Diagnoses Not on filedocumented in this encounter
--- OUTSIDE RECORDS SUMMARY | 2021-09-05 08:03 | XMS_ITS | Encounter Summary ---
:1945 Author Organization [facility] Address [address] [place] [id number] Care Team Providers Name Role Phone Unavailable Primary Care Provider Unavailable Encounter Details Date Type Department Care Team Description 05/27/2011 Hospital Encounter HX NO MAPPING Tona Colon M.D. Social History Tobacco Use Types Packs/Day Years [...]
--- OUTSIDE RECORDS SUMMARY | 2021-09-05 08:03 | XMS_ITS | Encounter Summary ---
:1945 Author Organization [facility] Address [address] [place] [id number] Care Team Providers Name Role Phone Unavailable Primary Care Provider Unavailable Encounter Details Date Type Department Care Team Description 12/05/2011 Hospital Encounter HX [facility] Nicki Anthony APRN, C.N.P., D.N.P. [address] [place], [place] [phone] (Wo rk) Social History [...] Diagnosis Comme nts HEMOGLOBIN A1C, B Routine 12/05/2011 8:00 AM Res ults for this CDT procedure are i n the results section. documented in this encounter Results (ABNORMAL) Hemoglobin A1c (12/05/2011 8:00 AM CDT) Analysis Performed At Patho logist Time Signature Hemoglobin A1c, 7.46 (H) 4.00 - POWERCHART B 6.00 Specimen (Source) Anatomical Collection Method Collection Time Re ceived Time Location / / Volume Laterality Blood 12/05/2011 8:00 AM CDT Nicki Anthony APRN, C.N.P., D.N.P. LAB BLOOD ADD- ON Performing Organization Address City/State/ZIP Code Phon e Number POWERCHART documented in this encounter Visit Diagnoses Not on filedocumented in this encounter
--- OUTSIDE RECORDS SUMMARY | 2021-09-05 08:03 | XMS_ITS | Encounter Summary ---
:1945 Author Organization [facility] Address [address] [place] [address] Care Team Providers Name Role Phone Unavailable Primary Care Provider Unavailable Encounter Details Date Type Department Care Team Description 11/14/2010 Hospital Encounter HX NO MAPPING Tam Helm M.D. [address] [place], [place] [phone] (Wo rk) Social History [...] documented as of this encounter Consult Notes Simona Helm M.D. - 11/14/2010 12:00 AM CDT CARDCONOS IMPRESSION/REPORT/PLAN Mrs. Adams seems to be doing very well. She has really had no cardiac symptoms now and her palpitations seem to have settled down. I did discuss with her that she needs to get into a regular walking program slowly building up to a half hour a day and weight loss even mild would be helpful for her diabetes. Her blood pressure seems to be under good control right now. She hasn't had any palpitations. Her Holters have shown more benign ectopy and she has had a normal echo. She does have a systolic outflow murmur question some aortic sclerosis. At this point would just follow and I have reassured her. CHIEF COMPLAINT/REASON FOR VISIT Mrs. Adams is being seen in follow-up of palpitations. HISTORY OF PRESENT ILLNESS Mrs. Adams is a 65-year-old white female. She has a history of type 2 diabetes. She had complaints in the past of palpitations. She'd had a couple of Holters as well as event recorders and for the most part these appeared to be benign ventricular premature contractions. She has had again a couple of Holters performed. The last that I can see was in April of 2009 which showed sinus rhythm, frequent ventricular premature contractions singly and occasionally in pairs without any episodes of ventricular tachycardia and rare SVPCs. Her average heart rate was 70. She also had an echocardiogram done in 2007 which showed her ejection fraction to be 69% and was otherwise normal. She feels that her palpitations have really calmed down at this time, although occasionally she will note some irregularity. She doesn't do any exercise, but with her usual activity she doesn't notice any shortness of breath or chest discomfort. She notes if she gets up suddenly she may get some lightheadedness at times. She has been a nonsmoker, doesn't use any alcohol. No definite early family history of coronary disease, although her father had a myocardial infarction in his later 60s. She does have diabetes and is on metformin and has a history of hyperlipidemia and evidently some mild hypertension in the past. A hematology group in September was normal. Sodium and potassium are normal. Her hemoglobin A1c was in the low 7s. Her cholesterol is 148, triglycerides 137, HDL of 53, and LDL of 68. She had complained in early September of some lightheadedness and they also noted that she had some hypertension and did start her on a low dose amlodipine. CURRENT MEDICATIONS Her current medications include that of: Metformin. Glipizide.. Amlodipine 2 1/2 milligrams a day. Simvastatin 10 milligrams a day. Alprazolam. Aspirin 81 milligrams a day. SOCIAL HISTORY She is , [place], and has two grown children. She does work about 30 hours a week in a [employer]. VITAL SIGNS PULSE: 76 and regular BLOOD PRESSURE: 122/70 PHYSICAL EXAM GENERAL: She is a very pleasant woman who is at least moderately overweight. LUNGS: Clear. CARDIOVASCULAR: Normal jugular venous pressure. Carotid upstroke is normal. No bruits. Point of maximum intensity is soft. S1, S2 with a I-II/ systolic ejection murmur at the base and left sternal border. ABDOMEN: Obese, nontender. No masses. EXTREMITIES: Normal femoral and pedal pulses. 1+ edema. Tam Helm M.D. / Electronically Signed By: Simona HELM MD On: 11/21/2010 01:19 PM Source: [facility] [id number] Document Id: [id number] documented in this encounter Miscellaneous Notes Miscellaneous - Andrea Malhotra R.N. - 11/14/2010 2:45 PM CDT Adult Neuroradiologist Intake/History Adult Neuroradiologist Intake/History Entered On: 11/14/2010 14:53 CDT Performed On: 11/14/2010 14:45 CDT by ANDREA AMLHOTRA photocomposing machine operator Chief Complaint: Here to establish care - yearly follow-up Onset of Symptoms: No chest pain, less irregular heart rates. does have chest heaviness at times. No SOB. Ocassional pitting edema in ankles and feet Apical Heart Rate: 78/min Systolic Blood Pressure: 128mmHg Diastolic Blood Pressure: 64mmHg NIBP Mean: 85mmHg BP Location: Right upper extremity Heart Rhythm: Irregular Height: 158.00cm(Converted to: 5ft 2inch(es), 62.20inch(es)) Actual Weight: 89.000kg(Converted to: 196lb 3oz) Dosing Weight Clinic: 89.00kg Clinic BSA: 1.98 Body Mass Index: 35.65kg/m2 ANDREA MALHOTRA RN - 11/14/2010 14:45 CDT General Info Information Given By: Patient Preferred Communication Mode: Verbal Languages: Wolof ANDRAE MALHOTRA RN - 11/14/2010 14:45 CDT Subjective Pain Symptoms: No ANDREA MALHOTRA RN - 11/14/2010 14:45 CDT Dependent Habits Tobacco Use/Currently Using: No Alcohol Use: No ANDREA MALHOTRA RN - 11/14/2010 14:45 CDT Caffeine Use Grid Caffeine Use: Current Type: Tea Frequency: Occasionally ANDREA MALHOTRA - 11/14/2010 14:45 CDT Recreational Drug Use Grid Drug Use: None ANDREA MALHOTRA - 11/14/2010 14:45 CDT Allergy Allergies (Active) azithromycin Estimated Onset Date: [...] RUSSELL LPN; Reviewed Date: 11/14/2010 14:45 CDT Health History I Ocular Past Medical History Grid Cataract: no Glaucoma: no ANDREA MALHOTRA - 11/14/2010 14:45 CDT Cardiovascular Past Medical History Grid Aortic Aneurysm: no Chest Pain/Angina: no Dizziness: Self Fainting: no Heart Attack: Father, no Heart Disease: Father, Sibling, no Heart Failure: no High Blood Pressure: questionable High Cholesterol: Self Irregular Heartbeat/Palpitations: Self ANDREA MALHOTRA - 11/14/2010 14:45 CDT Respiratory Past Medical History Grid Asthma: no Sleep Apnea: no ANDREA MALHOTRA - 11/14/2010 14:45 CDT Gastrointestinal Past Medical Hx Grid Heartburn: no ANDREA MALHOTRA - 11/14/2010 14:45 CDT Health History II Musculoskeletal Past Medical Hx Grid Arthritis: Self Osteoporosis: no ANDREA MALHOTRA - 11/14/2010 14:45 CDT Endocrine/Metabolic Past Med Hx Grid Diabetes: Self, Children, Sibling Thyroid Disease: Self, Mother, Grandparents, borderline ANDREA MALHOTRA - 11/14/2010 14:45 CDT Neurological Past Medical History Grid Frequent Headaches: no Migraines: Self Seizure: no Stroke: Father, no TIA: Self, ? 3 years ago Weakness: no ANDREA MALHOTRA - 11/14/2010 14:45 CDT Psychiatric Past Medical History Grid Anxiety: Self Depression: Self ANDREA MALHOTRA - 11/14/2010 14:45 CDT Oncologic Past Medical History Grid Breast Cancer: Mother Lung/Bronchus Cancer: Father ANDREA MALHOTRA RN - 11/14/2010 14:45 CDT [facility]: [facility] Document Id: [id number] CDT!72 documented in this encounter Plan of Treatment Not on filedocumented as of this encounter Visit Diagnoses Not on filedocumented in this encounter
--- OUTSIDE RECORDS SUMMARY | 2021-09-05 08:03 | XMS_ITS | Encounter Summary ---
:1945 Author Organization [facility] Address [address] [place] [address] Care Team Providers Name Role Phone Unavailable Primary Care Provider Unavailable Encounter Details Date Type Department Care Team Description 05/27/2011 Hospital Encounter HX NO MAPPING Dandy Mccarthy P.T. [address] [place], [place] [phone] Social History Tobacco Use Types Packs/Day Years [...] as of this encounter Progress Notes Adriane Mccarthy P.T. - 05/27/2011 2:30 PM CDT [id number] REHAB SNAPSHOT Referring Provider: Tona Ledesma M.D. 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 Secondary Complaints: None Etiology: Insidious: pt reports she has always had difficulty with incontinence since her early twenties but it would come and go. 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 Pain / Symptoms are aggravated by: coughing, sneezing, getting closer to the bathroom Pain / Symptoms are eased by: None Specific Questions: Pelvic Floor: Are you having any regular exercise? no Have you practiced the PF(kegel) exercises for 4 or more weeks? no Thyroid checked? yes (related to hair loss, flu-like symptoms, wt gain/loss, fatigue, menopause) Changed diet lately? no Fluid intake(one glass is 8oz or one cup) 1-2 glasses/day, 0caffinated glasses/day 0 alcohol glasses/day. Bladder habits: How long can you delay the need to urinate? 1 - 2 minutes. Avg daytime interval in 3 hrs. Pt approximately goes every 2 hours How many times do you get up to urinate at night? 2-3 times for the past 3-4 years How many bladder infections have you had in last 12 months? no Can you stop the flow of urine when on the toilet? No Is the volume of urine passed usually: small. (8sec rule= 250ml with average bladder storing 400-600ml) Do you have the sensation that you need to go to the toilet? Yes Do you empty your bladder frequently, before you experience the urge to pass urine? Yes Do you strain to pass urine? No Do you have a slow or hesitant urinary stream? No Do you have difficulty initiating the urine stream? No Do you have triggers that make you feel you can't wait to go to the bathroom? Closer she gets to thebathroom, coughing, sneezing Leakage: with coughing a large amount that the pt has to change her pants, sneezing produces a smallto medium amount, urge symptoms pt has an occasional drop or two before she makes it to the rest room Bowel habits: Frequency of bowel movements? 2 times a day Consistancy of stool? soft Do you ignore the urge to defecate? No, and it has been difficult to resist the urge to defecate, ptdenies bowel incontinence Screening tool questions are: unremarkable. Given ? Yes Any complications? One miscarriage with a D&C , # of vaginal delieveries? none,# of C-sections? 2 , # of episiotomies? NA. Are you sexually active? Yes infrequently, with ocassional pain Have you ever been worried for your physical safety? No LEVEL OF FUNCTION Current Functional Limitations: Incontinence with sneezing, coughing, inability to get to bathroom in time, not having to go to the bathroom as often Prior Functional Level: No functional limitations prior to onset of chief complaint. 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 Job Demands: sitting, standing, walking, Patient's perceived quality of life: good Patient's goals for therapy: hold her bladder longer, not leak with sneezing or coughing FUNCTIONAL QUESTIONNAIRES PFIQ 0 OBJECTIVE: OBSERVATION Lumbar Posture: Negative Pelvic symmetry: Negative Introitus: loose ROM Standing forward flexion PSIS:Negative Passive Hip ROM: shortened HS bilaterally, shortened hip IR's bilaterally SANJU:Negative SANJU with OP:Negative MUSCEL PERFORMANCE Abdominal Core 90/90 hip lower: TA 2/5 Baseline PF tone:hypo PF Tone with cough: hypo Valsalva: hypo PF Response quality: moderate PF Power: Center: 2 Stronger on right/left no. Endurance: Maximum contraction in seconds: 3 # of endurance contractions before fatigue: 4 Quick contraction repetitions prior to fatigue: 3. Specificity/accessory muscles: WNL/WFL, Synergy with abdominals: WNL/WFL. Prolapse: Cyctocele: 2 Urethrocele: none, Enterocele: none. PALPATION: Non-tender all superficial structures with digital evaluation NEUROMOTOR DEVELOPMENT AND SENSORY INTEGRATION: WNL/WFL (Observed during evaluation) VENTILATION, RESPIRATION, AND CIRCULATION: WNL/WFL (At rest and with activity) ASSESSMENT: Physical Therapy Diagnosis: Signs and symptoms consistent with: mixed stress and urinary incontinence Patient requires skilled Physical Therapy intervention for the following impairments: Muscle strength and endurance limitations These impairments are limiting the patient's ability to perform the following functional activities:Incontinence with sneezing, coughing, inability to get to bathroom in time, not having to go to the bathroom as often PLAN: Anticipated Goals and Expected Outcomes: in 8-10 weeks Patient is able to demonstrate proper pelvic floor contractions independently. Patient demonstrated an understanding of normal anatomy and physiology of the urogential and GI systems, including proper techniques for urination and defecation. Patient is able to demonstrate an education in proper fluid and dietary intake as well as bladder irritants. Patient will decrease # of leaks with urgency by 30-50%. Patient will demonstrate continence with all activities of daily living. Patient will demonstrate a normal voiding pattern. Patient to demonstrate an understanding in urge suppression techniques. Patient will increase void interval by 1 hour. Rehab potential for achieving goals and expected outcomes: good Skilled physical therapy interventions and plan to achieve goals and expected outcomes: ?? Patient education to inform, educate, and/or train patients, families, significant others, and caregivers to promote and optimize physical therapy services. ?? Coordinate, communicate, and document to ensure the patient receives appropriate, comprehensive, and efficient quality care. ?? Procedural interventions: education in self care / home management training to include instruction in: symptom control techniques and therapeutic exercise to develop: strength and endurance Assessment will be ongoing with changes in treatment as indicated. Benefits/risks/alternatives to treatment have been reviewed and the patient/managed care coordinator has been instructed to contact this office if they have any questions or concerns. This plan of care has been discussed with the patient/managed care coordinator and the patient/managed care coordinator is in agreement. Frequency / Duration: Patient would like to try the HEP for 2 weeks if she does not notice improve or is having difficulty with the HEP she will return for a follow-up visit. Anticipated discharge plan: Independent and safe with home exercise and self care program Adriane Mccarthy, DPElle Date: 05/27/2011 Referring Provider Certification: Referring Provider reviewing certifies the above treatment plan isrequired and authorized and that the patient's plan will be reviewed every 60 days. Referring Provider Signature: per electronic co-sign. Today's Treatment: Initial Evaluation. THERAPEUTIC PROCEDURES Self Care / Home Management Trainin minutes Symptom Control: Educated pt on bladder re-training, completing a bladder diary, dietary bladder irritants, urge suppression techniques Therapeutic Exercise: 8 minutes Issued written handout(s): kegel endurance and quick contractions in supine 2-3x/day increasing the number of repetitions and length of time held as her strength increases Post treatment response: No immediate post treatment change in symptoms. Patient demonstrates a excellent understanding of HEP / Self Care. PT will call in 2 weeks to discuss pt's status Total Visit Time: 60 minutes Total Time-Based Code Only Minutes: 23 minutes. FRINGE MAKER PRESENT: NA MULTIDISCIPLINARY PATIENT / FAMILY EDUCATION RECORD Department: Physical Therapy Readiness to Learn: Ability to understand verbal instructions, Ability to understand written instructions, Knowledge of educational needs / treatment plan Specific Barriers to Learning: None Referrals: None Learning Needs: Rehabilitation techniques to improve functional independence Who: Patient How: Demonstration, Verbal instructions, Written instructions Response: Appropriate verbal response, Asked questions, Demonstrated ability, Verbalized recall / understanding Source: [facility] [id number] Document Id: [id number] Electronically signed by Sae Pilgrim Psychiatric Centeryoshi Auto Repair Technician [id number] at 07/19/2016 11:54 AM CDT documented in this encounter Plan of Treatment Not on filedocumented as of this encounter Visit Diagnoses Not on filedocumented in this encounter
--- OUTSIDE RECORDS SUMMARY | 2021-09-05 08:03 | XMS_ITS | Encounter Summary ---
:1945 Author Organization [facility] Address [address] [place] [address] Care Team Providers Name Role Phone Unavailable Primary Care Provider Unavailable Encounter Details Date Type Department Care Team Description 05/28/2011 Hospital Encounter HX NO MAPPING Dandy Mccarthy, P.T. [address] [place], [place] [phone] Social History Tobacco Use [...]
--- OUTSIDE RECORDS SUMMARY | 2021-09-05 08:03 | XMS_ITS | Encounter Summary ---
:1945 Author Organization [facility] Address [address] [place] [address] Care Team Providers Name Role Phone Unavailable Primary Care Provider Unavailable Encounter Details Date Type Department Care Team Description 10/04/2010 Hospital Encounter HX [facility] Nicki Anthony, MAL, C.N.P., D. N.P. [address] [place] [phone] (Wo rk) Social History Tobacco [...] of this encounter Miscellaneous Notes Miscellaneous - Nya Wilson, L.P.N. - 10/04/2010 9:16 AM CDT Ambulatory Vitals Height Weight Ambulatory Vitals Height Weight Entered On: 10/04/2010 9:18 CDT Performed On: 10/04/2010 9:16 CDT by NYA WILSON LPN Vitals/Ht/Wt Peripheral Pulse Rate: 80/min Systolic Blood Pressure: 120mmHg Diastolic Blood Pressure: 80mmHg NIBP Mean: 93mmHg BP Location: Left upper extremity NYA WILSON LPN - 10/04/2010 9:16 CDT Source: [facility] Document Id: [id number] CDT!7 documented in this encounter Plan of Treatment Not on filedocumented as of this encounter Visit Diagnoses Not on filedocumented in this encounter
--- OUTSIDE RECORDS SUMMARY | 2021-09-05 08:03 | XMS_ITS | Encounter Summary ---
:1945 Author Organization [facility] Address [address] [place] [address] Care Team Providers Name Role Phone Unavailable Primary Care Provider Unavailable Encounter Details Date Type Department Care Team Description 09/23/2010 Hospital Encounter HX [facility] Nicki Holt, MAL, C.N.P., D. N.P. [address] [place] [phone] (Wo rk) Social History Tobacco Use Types [...] Progress Notes Nicki Holt, Maritza.N.P., C.N.P. - 09/23/2010 12:00 AM CDT [id number] CHIEF COMPLAINT/REASON FOR VISIT Lightheadedness. HISTORY OF PRESENT ILLNESS The patient is a 65-year-old female that presents to the clinic today with a chief complaint of lightheadedness that has been occurring intermittently now for almost a month. She reports that usually she experiences it about one hour after waking in the morning or approximately one hour after eating breakfast. She also states that it occurs more so when she has been standing for a prolonged period of time versus sitting. She reports that the room does not appear to be spinning nor does she feel as though she is spinning but more so indicates that she just feels lightheaded. She reports that she has not been having fevers, chills, nausea, vomiting, shortness of breath or difficulty breathing. She reports that she is aware that her blood pressure is high and indicates that she did not like the way that metoprolol and Benicar made her feel and gave her heart palpitations. She indicates therefore she has not been taking her blood pressure medication. She reports that she recently did have her eyes examined in which she is going to possibly switch from trifocals to bifocals, but is unsure of this decision at this time. She does indicate that she occasionally has some right lower quadrant abdominal pain and states that she does have a history of a hernia surgery to that area. She does note that she did have her appendix taken out in approximately the 1960s. She denies any changes in urination or bowel habits. She otherwise denies having any other further concerns or complaints at this time. PAST MEDICAL/SURGICAL HISTORY Reviewed. Please see chart. CURRENT MEDICATIONS Reviewed. Please see chart. ALLERGIES Reviewed. Please see chart. PHYSICAL EXAMINATION GENERAL: The patient is an alert, obese 65-year-old female who appears to be in no acute distress. HEAD: Normocephalic/atraumatic. PUPILS: GENE. OROPHARYNX: Rattan and moist. TMs: Bilateral TMs are clear, bony landmarks noted and WNL. NARES: Patent, no erythema or drainage noted. NECK: No anterior/posterior lymphadenopathy noted. HEART: Regular S1, S2, no murmurs, rubs or gallops noted. LUNGS: Clear to auscultation, no prolonged expiratory phases, wheezing, rales or rhonchi noted. SKIN: Without unusual rashes or suspicious lesions. ABDOMEN: Bowel sounds are positive in all four quadrants. No hepatosplenomegaly is noted. No rebound, tenderness, guarding, or rigidity is noted, though I will note that the patient more so complains of pain to the right lower quadrant area more so with much deeper palpation. LABS: WBC 8.4, hemoglobin 12.5, and differential otherwise completely unremarkable. Sodium 148.1, potassium 4.2, chloride 110, glucose 152 (though this is not a fasting glucose), creatinine 1.07, AST 22, ALT 24 total bilirubin 0.2. IMPRESSION/REPORT/PLAN 1. Lightheadedness. 2. Hypertension. PLAN: Discussed the findings at length with the patient. At this time in reviewing the patient's medications, I did opt to start her on amlodipine 2.5 mg as she is to take one tablet by mouth daily. We will have her come back for a blood pressure check within this next week if she is also to continue on her metformin, though instead of taking one tablet by mouth once a day of her 500 mg she is to take one tablet by mouth twice a day. We will also plan on setting up a carotid ultrasound for further evaluation in which this is presently pending. Patient stated they understand this plan as she denied having any other further concerns or complaints. Patient ambulated out of the clinic in no acute distress. PATIENT EDUCATION: Ready to learn No apparent learning barriers were identified Learning preferences include listening Explained diagnosis and treatment plan Patient/Child/Caregiver expressed understanding of the content Nicki Holt D.N.P., F.N.P. /arnol Electronically Signed By: NICKI HOLT DNP, FNP On: 09/30/2010 03:36 PM [facility] Document Id: [id number] documented in this encounter Miscellaneous Notes Miscellaneous - Nicki Holt D.N.P., C.N.P. - 09/24/2010 5:24 PM CDT Results Notification Document Contains Addenda Addendum by RAMONITA GUILLERMO LPN on 24 September 2010 17:47:23 CDT letter sent From: NICKI HOLT DNP, FNP To: RAMONITA GUILLERMO LPN Sent: 09/24/2010 17:24:54 CDT ! Show up: 09/24/2010 17:24:00 CDT Subject: Results Notification Actions: Notify patient of results Due Date/Time: 09/24/2010 17:24:00 CDT Source: [facility] [employer]ART Document Id: [id number] Electronically signed by Sae, [facility] [place] [employer]ader [id number] at 07/20/2016 11:40 PM CDT Miscellaneous - Nicki Holt, Maritza.N.P., C.N.P. - 09/23/2010 4:37 PM CDT Ambulatory Patient Summary [address] [address] Visit Information Name: ARCHIE BAZAN Current Date: 09/23/2010 16:37:11 Primary Care Provider: NICKI HOLT [facility], [facility] Your Medications Here is a list of your medications. It is important to take your medications as directed. Use a pillbox or chart to help remind you to take your medications. Please let your doctor or nurse know if you have problems taking your medications. Medication/Strength Dose Route Frequency Indications/Special Instructions/Comments amlodipine (Norvasc 2.5 mg oral tablet) 2.5 mg Oral once a day clobetasol topical (clobetasol topical 0.05% shampoo) 1 shauna Topical once a day as needed for Rash (wash hands immediately after application) simvastatin (simvastatin 10 mg oral tablet) 10 mg Oral once a day (at bedtime) alprazolam (Xanax 0.5 mg oral tablet) 0.5 mg Oral every 8 hours as needed for Anxiety metformin (metformin 500 mg oral tablet) 1 tab(s) Oral once a day with breakfast glipiZIDE (glipiZIDE 5 mg oral tablet) 5 [...] Last Done Next Due Additional Information Diabetes: A1C every 6 months 05/25/2010 11/24/2010 Average of blood sugar over a 2-3 month timeframe. Diabetes: Creatinine every 1 year 06/11/2010 06/11/2011 Diabetes: Diabetes Education every 1 year 09/23/2010 Diabetes: Eye Exam every 1 year 07/22/2010 07/22/2011 Diabetes: Foot Exam every 1 year 10/08/2009 10/08/2010 Diabetes: Microalbumin/Urine Protein every 1 year 05/30/2010 05/30/2011 Diabetes: Blood Pressure is Uncontrolled (greater than 139/89) 09/23/2010 As Advised by your Provider Keeping your blood pressure in control reduces your risk of heart attack, stroke and eye and kidneydisease. Diabetes and/or Vascular: LDL every 1 year 05/25/2010 05/25/2011 Screening Bone Density Once Women greater than age 64 09/23/2010 Checks for bone loss and osteoporosis. Screening Colonoscopy or Flex Sig or Occult Blood X3 01/03/2009 01/01/2019 Checks for signs of cancer of the colon. Screening Mammogram every 1 year Women 40-75 09/23/2010 X-rays of breast to check for breast cancer. Screening Pap Smear every 3 years Women 21-65 09/23/2010 Checks for signs of cancer of the cervix. Lipid Panel every 5 years Age 20-75 05/25/2010 05/24/2015 Checks blood for good (HDL) and bad (LDL) cholesterol. Know your numbers, they are one indicator of your risk for heart attack and stroke. Vaccine: Flu every 1 year 12/17/2009 12/17/2010 Immunization to help prevent you from getting the flu strain expected to be a problem for that year's flu season. Vaccine: Pneumococcal Once 09/23/2010 Immunization to help prevent you from getting 23 kinds of pneumococcal bacteria that can lead to pneumonia, bacteremia and meningitis. Vaccine: Tetanus every 10 years 02/14/2010 02/12/2020 Immunization to help prevent you from getting the serious disease Tetanus (Lockjaw). Your Upcoming Appointments Date Time Location Reason Provider No Appointments found Your Goals/Additional instructions: Source: [facility] [employer] Document Id: [id number] Electronically signed by Conversion, [facility] [place] [employer]ader [id number] at 07/20/2016 11:40 PM CDT Miscellaneous - Nicki Holt D.N.P., C.N.P. - 09/23/2010 4:37 PM CDT Ambulatory Depart Summary [id number] [place] [address] Visit Information Name: ARCHIE BAZAN Current Date: 09/23/2010 16:37:10 Primary Care Provider: NICKI HOLT [facility], [facility] ARCHIE BAZAN has been given the following [...] tablet) 2.5 mg Oral once a day clobetasol topical (clobetasol topical 0.05% shampoo) 1 shauna Topical once a day as needed for Rash (wash hands immediately after application) simvastatin (simvastatin 10 mg oral tablet) 10 mg Oral once a day (at bedtime) alprazolam (Xanax 0.5 mg oral tablet) 0.5 mg Oral every 8 hours as needed for Anxiety metformin (metformin 500 mg oral tablet) 1 tab(s) Oral once a day with breakfast glipiZIDE (glipiZIDE 5 mg oral tablet) 5 mg Oral once a day aspirin (aspirin 81 mg oral tablet) 1 tab(s) Oral once a day Additional Information: Yes - Current list of reconciled medications is provided and explained to the patient and/or family, guardian/caregiver. [facility] Document Id: [id number] Electronically signed by Conversion, [facility] [place] [employer]ader [id number] at 07/20/2016 11:40 PM CDT Miscellaneous - Conversion, Historical Provider Ser - 09/23/2010 3:54 PM CDT Ambulatory Vitals Height Weight Ambulatory Vitals Height Weight Entered On: 09/23/2010 15:54 CDT Performed On: 09/23/2010 15:54 CDT by RAMONITA GUILLERMO LPN Vitals/Ht/Wt Systolic Blood Pressure: 152mmHg (HI) Diastolic Blood Pressure: 74mmHg NIBP Mean: 100mmHg RAMONITA GUILLERMO LPN - 09/23/2010 15:54 CDT Source: [facility] Document Id: [id number] CDT!5 Miscellaneous - Conversion, Historical Provider Ser - 09/23/2010 3:49 PM CDT Adult Business Development Intern Intake/History Adult Business Development Intern Intake/History Entered On: 09/23/2010 15:53 CDT Performed On: 09/23/2010 15:49 CDT by RAMONITA GUILLERMO LPN Intake Chief Complaint: has had some light-headedness lately, ongoing for not quite a month, usually in the morning but not everyday occasional pain in lower right quad, history of hernia surgery Temperature Oral: 37.1C(Converted to: 98.8DegF) Peripheral Pulse Rate: 72/min Respiratory Rate: 16/min Systolic Blood Pressure: 150mmHg (HI) Diastolic Blood Pressure: 74mmHg NIBP Mean: 99mmHg Actual Weight: 89.300kg(Converted to: 196lb 14oz) Dosing Weight Clinic: 89.30kg RAMONITA GUILLERMO LPN - 09/23/2010 15:49 CDT Subjective Pain Symptoms: No RAMONITA GUILLERMO LPN - 09/23/2010 15:49 CDT Dependent Habits Tobacco Use/Currently Using: No RAMONITA GUILLERMO LPN - 09/23/2010 15:49 CDT Caffeine Use Grid Caffeine Use: Current Type: Tea Frequency: Occasionally RAMONITA GUILLERMO LPN - 09/23/2010 15:49 CDT Recreational Drug Use Grid Drug Use: None RAMONITA GUILLERMO LPN - 09/23/2010 15:49 CDT Allergy Allergies (Active) azithromycin Estimated Onset Date: Unspecified ; Created By: PETRA RUSSELL LPN; Reaction Status: Active ; Category: Drug ; Substance: azithromycin ; Type: Allergy ; Updated By: PETRA RUSSELL LPN; Reviewed Date: 09/23/2010 15:49 CDT Benicar Estimated Onset Date: Unspecified ; Created By: PETRA RUSSELL LPN; Reaction Status: Active ; Category: Drug ; Substance: Benicar ; Type: Allergy ; Updated By: PETRA RUSSELL LPN; Reviewed Date: 09/23/2010 15:49 CDT Source: [facility] [employer] Document Id: [id number] CDT!23 documented in this encounter Plan of Treatment Not on filedocumented as of this encounter Visit Diagnoses Not on filedocumented in this encounter
--- OUTSIDE RECORDS SUMMARY | 2021-09-05 08:03 | XMS_ITS | Encounter Summary ---
:1945 Author Organization [facility] Address [address] [place] [address] Care Team Providers Name Role Phone Unavailable Primary Care Provider Unavailable Encounter Details Date Type Department Care Team Description 04/28/2011 Hospital Encounter HX [facility] Vickey Holt, MAL, C.N.P., D. N.P. [address] [place] [address] (Wo rk) Social History Tobacco [...] Reading Time Taken Comments Blood Pressure 120/56 04/28/2011 7:57 AM CDT Pulse 88 04/28/2011 7:57 AM CDT Temperature - - Respiratory Rate 16 04/28/2011 7:57 AM CDT Oxygen Saturation - - Inhaled Oxygen Concentration - - Weight - - Height - - Body Mass Index - - documented in this encounter Progress Notes Vickey Holt, D.N.P., C.N.P. - 04/28/2011 12:00 AM CDT Addendum Document Contains Addenda REVISION HISTORY Dictated on 05/01/2011 at 8:47 PM, transcribed 05/02/2011 at 8:28 AM - Modification to PAST MEDICAL/SURGICAL HISTORY, FAMILY HISTORY, SOCIAL HISTORY, ALLERGIES, CURRENT MEDICATIONS, IMPRESSION/REPORT/PLAN by Vickey Holt D.N.P., F.N.P. PAST MEDICAL/SURGICAL HISTORY Past medical history included: Anxiety disorder diagnosed in 1987. Hyperlipidemia since 2004. Non-insulin dependent diabetes mellitus since 2007. Osteoarthritis. Osteoporosis. Renal calculi diagnosed on 04/28/2011. Rosacea since 2006. TIA in 2007. Past surgical history includes: Appendectomy in 1959. Breast biopsy in 1986. in 1964 and 1968 Colonoscopy in 2008. Umbilical hernia repair in 1997 and 2000 FAMILY HISTORY Mother at approximately 50 years of age secondary to breast cancer. Father at 68 years of age secondary to coronary artery disease and lung cancer, Two brothers that currently have type 2 diabetes mellitus and one with a history of prostate cancer. SOCIAL HISTORY The patient is presently , is currently working, denies tobacco or street drug usage. The patient had an unremarkable examination (with the exception of vaginal examination) dated 04/28/2011. ALLERGIES Azithromycin Benicar. CURRENT MEDICATIONS Toradol 10 mg by mouth, one pill up to three times a day as need for pain. Metformin 1000 mg extend release one tablet by mouth daily. Norvasc 2.5 mg by mouth daily. Clobetasol 0.05% solution applied topically twice a day as needed. Xanax 0.5 mg by mouth every eight hours as need for anxiety. Glipizide 5 mg by mouth daily. Simvastatin 10 mg by mouth every evening. Aspirin 81 mg by mouth daily. IMPRESSION/REPORT/PLAN Unremarkable physical examination dated 04/28/2011, surgery for renal calculi removal on to be completed on 05/09/2011. PLAN: Patient to follow up for renal calculi removal on 05/09/2011, in which I currently do not have any concerns regarding the use of general anesthesia. Information sent to Daniela Yates, unit secretary to Dr. Carl Correa at [facility] Department of Urology. CHIEF COMPLAINT 1) Followup ER visit. 2) Vaginal discomfort. HISTORY OF PRESENT ILLNESS The patient is a 65-year-old female who presents to clinic today for a couple different issues. I will note that the patient was seen on 04/26/2011 for left flank pain in which she was noted to have an approximate 3.5-mm calculi to the left ureteral vesicular junction. I will note that the patient was given Toradol and also Vicodin to help the pain management in which she was encouraged to increase her hydration as no hydronephrosis was noted. She reports that she has not been taking any of the pain medication, does report that she had another episode of some left flank pain yesterday. She reports that she has no history of renal calculi that she is aware of. She reports that she has not been having fevers, chills, nausea, vomiting, denies having any other further concerns or issues at this time. The patient does note though that she has been having more of a fullness sensation in the vaginal canal that she has noticed more so the past couple weeks and also would like this to be evaluated today. She, otherwise, is not having any other further issues at this time, and reports that she has not noticed any decrease in urination. PAST MEDICAL/SURGICAL HISTORY FAMILY HISTORY Reviewed. Please see chart. CURRENT MEDICATIONS ALLERGIES Reviewed. Please see chart. PHYSICAL EXAM OBJECTIVE: Patient is alert/oriented x 3. HEAD: Normocephalic/atraumatic. PUPILS: GENE. OROPHARYNX: [place] and moist. TMs: Bilateral TMs are clear, bony landmarks noted and WNL. NARES: Patent, no erythema or drainage noted. NECK: No anterior/posterior lymphadenopathy noted. HEART: Regular S1, S2, no murmurs, rubs or gallops noted. LUNGS: Clear to auscultation, no prolonged expiratory phases, wheezing, rales or rhonchi noted. SKIN: Without unusual rashes or suspicious lesions VAGINAL EXAM: Note, external vaginal examination is unremarkable, though I will note on bimanual examination, the patient is noted to have mild cystocele on examination, more so only notable with the patient is bearing down. IMPRESSION/REPORT/PLAN IMPRESSION 1) History of renal calculi. 2) Cystocele. PLAN Discussed the findings at length with the patient. Presently, at this time, I advised that she continue on the Vicodin and the Toradol as this was discussed at length with the patient. She was also given information regarding renal calculi from the [facility] site. We will plan on referring her to a urologist given the fact that her renal calculi is at the ureteral vesicular junction and there may be complications with her being able to pass this. Patient was also given Flomax, 0.4 milligrams, that she can take by mouth daily for next seven days duration; quantity of seven with no refills was called into her pharmacy. Also discussed side effects a cystocele at length with the patient, in which we will plan on having her follow up with Gynecology for further evaluation. Patient states she understands this plan, she otherwise denied having any other further concerns or issues. Patient will follow-up as needed. Patient ambulated out of the clinic in no acute distress. PATIENT EDU #1 Patient Education Ready to learn No apparent learning barriers were identified Learning preferences include listening Explained diagnosis and treatment plan Patient/Child/Caregiver expressed understanding of the content. TIME Note that greater than 50% of visit was spent in consultation regarding the treatment of renal calculi and cystoceles. Vickey Holt D.N.P., NereidaN.P. /rodrick Electronically Signed By: VICKEY HOLT DNP, FNP On: 04/29/2011 11:21 AM Vickey Holt D.N.P., F.N.P. /arnol Electronically Signed By: VICKEY HOLT DNP, FNP On: 04/29/2011 11:21 AM Co-Signed By: VICKEY HOLT DNP, FNP On: 05/05/2011 06:36 PM [facility] Document Id: [id number] CHIEF COMPLAINT 1) Followup ER visit. 2) Vaginal discomfort. HISTORY OF PRESENT ILLNESS The patient is a 65-year-old female who presents to clinic today for a couple different issues. I will note that the patient was seen on 04/26/2011 for left flank pain in which she was noted to have an approximate 3.5-mm calculi to the left ureteral vesicular junction. I will note that the patient was given Toradol and also Vicodin to help the pain management in which she was encouraged to increase her hydration as no hydronephrosis was noted. She reports that she has not been taking any of the pain medication, does report that she had another episode of some left flank pain yesterday. She reports that she has no history of renal calculi that she is aware of. She reports that she has not been having fevers, chills, nausea, vomiting, denies having any other further concerns or issues at this time. The patient does note though that she has been having more of a fullness sensation in the vaginal canal that she has noticed more so the past couple weeks and also would like this to be evaluated today. She, otherwise, is not having any other further issues at this time, and reports that she has not noticed any decrease in urination. PAST MEDICAL/SURGICAL HISTORY FAMILY HISTORY Reviewed. Please see chart. CURRENT MEDICATIONS ALLERGIES Reviewed. Please see chart. PHYSICAL EXAM OBJECTIVE: Patient is alert/oriented x 3. HEAD: Normocephalic/atraumatic. PUPILS: GENE. OROPHARYNX: [place] and moist. TMs: Bilateral TMs are clear, bony landmarks noted and WNL. NARES: Patent, no erythema or drainage noted. NECK: No anterior/posterior lymphadenopathy noted. HEART: Regular S1, S2, no murmurs, rubs or gallops noted. LUNGS: Clear to auscultation, no prolonged expiratory phases, wheezing, rales or rhonchi noted. SKIN: Without unusual rashes or suspicious lesions VAGINAL EXAM: Note, external vaginal examination is unremarkable, though I will note on bimanual examination, the patient is noted to have mild cystocele on examination, more so only notable with the patient is bearing down. IMPRESSION/REPORT/PLAN IMPRESSION 1) History of renal calculi. 2) Cystocele. PLAN Discussed the findings at length with the patient. Presently, at this time, I advised that she continue on the Vicodin and the Toradol as this was discussed at length with the patient. She was also given information regarding renal calculi from the [facility] site. We will plan on referring her to a urologist given the fact that her renal calculi is at the ureteral vesicular junction and there may be complications with her being able to pass this. Patient was also given Flomax, 0.4 milligrams, that she can take by mouth daily for next seven days duration; quantity of seven with no refills was called into her pharmacy. Also discussed side effects a cystocele at length with the patient, in which we will plan on having her follow up with Gynecology for further evaluation. Patient states she understands this plan, she otherwise denied having any other further concerns or issues. Patient will follow-up as needed. Patient ambulated out of the clinic in no acute distress. PATIENT EDU #1 Patient Education Ready to learn No apparent learning barriers were identified Learning preferences include listening Explained diagnosis and treatment plan Patient/Child/Caregiver expressed understanding of the content. TIME Note that greater than 50% of visit was spent in consultation regarding the treatment of renal calculi and cystoceles. Vickey Holt D.N.P., F.N.P. /rodrick Electronically Signed By: VICKEY HOLT DNP, FNP On: 04/29/2011 11:21 AM Source: [facility] MHSDOLBEYNONRADSYS Document Id: [id number] documented in this encounter Nursing Notes Conversion, Historical Provider Ser - 04/29/2011 3:54 PM CDT Referrals 1. Referral to Urology @ [facility]. Urology Dept will triage and let pt know appt time & place. 2. Referral to Dr. Colon - SURVEILLANCE OFFICER - @ [facility]. Appt scheduled for 05-07-11 @ 0830 - report time (appt @ 0845). Pt informed of date, time & place of appt. Electronically Signed By: DIANNE AMADOR LPN On: 05/01/2011 04:03 PM Source: [facility] POWEROshiboree Document Id: [id number] documented in this encounter Miscellaneous Notes Miscellaneous - Vickey Holt D.N.P., C.N.P. - 04/28/2011 8:33 AM CDT Ambulatory Patient Summary [id number] [place] [address] Visit Information Name: MARCIAL BAZAN Current Date: 04/28/2011 08:33:22 Physicians Attending Provider: VICKEY HOLT DNP, FNP [...] medications. Medication/Strength Dose Route Frequency Indications/Special Instructions/Comments hydrocodone-acetaminophen [...] day Take with food for heart health. Attention: If you have any medications at [...] Additional Information Diabetes: A1C every 6 months 04/26/2011 10/26/2011 Average of blood sugar over a 2-3 month timeframe. Diabetes: Creatinine every 1 year 04/26/2011 04/25/2012 Diabetes: Diabetes Education every 1 year 04/28/2011 Diabetes: Eye Exam every 1 year 07/22/2010 07/22/2011 Diabetes: Foot Exam every 1 year 01/16/2011 01/16/2012 Diabetes: Microalbumin/Urine Protein every 1 year 05/30/2010 05/30/2011 Diabetes and/or Vascular: LDL every 1 year 01/15/2011 01/15/2012 Health Assessment every 1 year 03/31/2011 03/30/2012 Screening Bone Density Once Women greater than age 64 04/28/2011 Checks for bone loss and osteoporosis. Screening Colonoscopy or Flex Sig or Occult Blood 01/03/2009 01/01/2019 Checks for signs of cancer of the colon. Screening Mammogram every 1 year Women 40-75 04/28/2011 X-rays of breast to check for breast cancer. Screening Pap Smear every 3 years Women 21-65 01/16/2011 01/15/2014 Checks for signs of cancer of the [...] that year's flu season. Vaccine: Pneumococcal Once 04/28/2011 Immunization to help prevent you from getting 23 kinds of pneumococcal bacteria that can lead to pneumonia, bacteremia and meningitis. Vaccine: Tetanus every 10 years 02/14/2010 02/12/2020 Immunization to help prevent you from getting the serious disease Tetanus (Lockjaw). Your Upcoming Appointments Date Time Location Reason Provider No Appointments found Your Goals/Additional instructions: Source: [facility] POWERCHART Document Id: [id number] Miscellaneous - Vickey Holt D.N.P., C.N.P. - 04/28/2011 8:33 AM CDT Ambulatory Depart Summary [address] [address] Visit Information Name: MARCIAL BAZAN Visit Date: 04/28/2011 08:33:21 Attending Provider: VICKEY HOLT DNP, FNP Primary Care Provider: VICKEY HOLT DNP, FNP MARCIAL BAZAN has been given the following list of medications: Your Medications It is important to take your medications as directed. Use a pill box or chart to help remind you to take your medications. Please let your doctor or nurse know if you have problems taking your medications. Medication/Strength Dose Route Frequency Indications/Special Instructions/Comments hydrocodone-acetaminophen [...] day Take with food for heart health. Attention: If you have any medications at home that are not on this list, DO NOT take them until youcontact your provider for clarification. Additional Information: Yes - . Source: [facility] POWERCHART Document Id: [id number] Miscellaneous - ChristianaSylvia L.P.N. - 04/28/2011 7:57 AM CDT Adult Staff Certified Nurse Midwife Intake/History Document Has Been Updated Adult Staff Certified Nurse Midwife Intake/History Entered On: 04/28/2011 8:01 CDT Performed On: 04/28/2011 7:57 CDT by SYLVIA DARNELL LPN Intake Chief Complaint : Feels like everything is going to fall out of sarah area, No bleeding, getting worse Thursday seen in ER for Kidney stone SYLVIA DARNELL Justin NIX - 04/28/2011 8:01 CDT Onset of Symptoms : x2-3wks Temperature Core : 36.0C(Converted to: 96.8DegF) (LOW) Peripheral Pulse Rate : 88/min Respiratory Rate : 16/min Heart Rhythm : Regular Systolic Blood Pressure : 120mmHg Diastolic Blood Pressure : 56mmHg NIBP Mean : 77mmHg BP Location : Left upper extremity Blood Pressure Cuff Size : Regular SYLVIA DRANELL Justin NIX - 04/28/2011 7:57 CDT Subjective Pain Symptoms : No CHRISTIANA SYLVIA Anderson LPN - 04/28/2011 7:57 CDT Dependent Habits Tobacco Use/Currently Using : No Exposure to Tobacco Smoke : Care provider denies smoking in home Smoking Status : Never smoker Alcohol Use : No ASCENCIOALEJANDRO Anderson LPN - 04/28/2011 7:57 CDT Caffeine Use Grid Caffeine Use : Current Type : Tea Frequency : Occasionally CHRISTIANA ANTWANALEJANDRO Anderson LPN - 04/28/2011 7:57 CDT Recreational Drug Use Grid Drug Use : None ASCENCIOALEJANDRO Anderson LPN - 04/28/2011 7:57 CDT Allergy Allergies (Active) azithromycin Estimated Onset Date: Unspecified ; Created By: PETRA RUSSELL LPN; Reaction Status: Active ; Category: Drug ; Substance: azithromycin ; Type: Allergy ; Updated By: PETRA RUSSELL LPN; Reviewed Date: 04/28/2011 7:57 CDT Benicar Estimated Onset Date: Unspecified ; Created By: PETRA RUSSELL LPN; Reaction Status: Active ; Category: Drug ; Substance: Benicar ; Type: Allergy ; Updated By: PETRA RUSSELL LPN; Reviewed Date: 04/28/2011 7:57 CDT Source: [facility] [employer] Document Id: [id number] documented in this encounter Plan of Treatment Not on filedocumented as of this encounter Visit Diagnoses Not on filedocumented in this encounter
--- OUTSIDE RECORDS SUMMARY | 2021-09-05 08:03 | XMS_ITS | Encounter Summary ---
:1945 Author Organization [facility] Address [address] [place] [address] Care Team Providers Name Role Phone Unavailable Primary Care Provider Unavailable Encounter Details Date Type Department Care Team Description 09/15/2011 Hospital Encounter HX [facility] Nicki Holt, MAL, C.N.P., D. N.P. [address] [place] [address] (Wo rk) Social History Tobacco [...] Sign Reading Time Taken Comments Blood Pressure 136/68 09/15/2011 2:38 PM CDT Pulse 78 09/15/2011 2:38 PM CDT Temperature - - Respiratory Rate 20 09/15/2011 2:38 PM CDT Oxygen Saturation - - Inhaled Oxygen Concentration - - Weight 88.8 kg (195 lb 12.3 oz) 09/15/2011 2:38 PM CDT Height - - Body Mass Index - - documented in this encounter Progress Notes Nicki Holt, D.N.P., C.N.P. - 09/15/2011 12:00 AM CDT [id number] CHIEF COMPLAINT/REASON FOR VISIT Vaginal discharge and lightheadedness. HISTORY OF PRESENT ILLNESS Patient is 66-year-old female that presents to the clinic today with chief complaint of having some vaginal discharge and some mild vaginal pruritus now for the past couple days and indicates also thatshe woke up this morning having some lightheadedness. She reports that she does not drink much for fluid throughout the course of the day and she indicates that aside from taking some water for her pills this morning and by this afternoon (approximately 3:30 PM) she has had nothing else to drink. She does note that the temperatures are high and today is presently 90% humidity index with temperatures in the 90's and she should be increasing her fluid intake but indicates that she just forgets to a nd states that I am not a water drinker. She reports that the dizziness was only this morning andotherwise feels unremarkable. She reports that she has not had any vaginal odor, shortness of breath or difficulty breathing. Otherwise denies having any other further concerns or issues at this time. PAST MEDICAL HISTORY/SURGICAL HISTORY FAMILY HISTORY Past medical, surgical, family history reviewed. Please see chart. CURRENT MEDICATIONS ALLERGIES Reviewed. Please see chart. PHYSICAL EXAMINATION [...] any unusual rashes or suspicious lesions noted. PELVIC: External vaginal mucosa is unremarkable. LABORATORY: VIRIDIANA wet prep was obtained and found to be unremarkable and no Trichomonas, clue cells, or fungus were noted. IMPRESSION/REPORT/PLAN Vaginal discharge. PLAN: At this time, I indicated to the patient that her vaginal discharge may be secondary to dehydration and by increasing her fluid intake this may help with the vaginal secretions. I indicated to patient that currently I do not see any infectious etiology that would warrant treatment with medication. I indicated that if the dizziness continues to occur followup would be warranted. In addition,if the vaginal discharge does not resolve with hydration follow-up would also be warranted. Patientunderstands this plan and she otherwise denied having any other further questions or concerns. Patient ambulated out of the clinic in no acute distress. PATIENT EDUCATION #1 Patient/child/caregiver is ready to learn. No apparent learning barriers were identified. Learning preferences included listening. Explained diagnosis and treatment plan. Patient/child/caregiver expressed understanding of the content. Nicki Holt D.N.P./Elmer/felix Electronically Signed By: NICKI HOLT DNP, FNP On: 09/16/2011 07:26 AM Source: [facility] MHSDOLBEYNONRADSYS Document Id: [id number] documented in this encounter Miscellaneous Notes Miscellaneous - Vitaliy Darnell L.P.NJairo - 11/17/2011 5:35 PM CDT Quality Measures Quality Measures Entered On: 11/18/2011 17:36 CDT Performed On: 11/17/2011 17:35 CDT by VITALIY DARNELL LPN Diabetes Date of Last Eye Exam : 11/17/2011 CDT VITALIY DARNELL LPN - 11/18/2011 17:35 CDT Source: [facility] POWERCHART Document Id: [id number] Miscellaneous - Nicki Holt D.N.Kvng, C.N.P. - 09/15/2011 3:43 PM CDT Ambulatory Patient Summary [address] [address] Visit Information Name: ARCHIE BAZAN Current Date: 09/15/2011 15:43:54 Physicians Attending Provider: NICKI HOLT DNP, FNP [...] a day Take for high blood pressure. glipiZIDE (glipiZIDE 5 mg oral tablet) 5 mg Oral once a day 30 minutes before breakfast for high blood sugars. metformin (metformin 1000 mg oral tablet, extended [...] Osteoporosis NOS Active 01/07/11 date of onset unknown Rosacea Active 2006 TIA [Transient ischemic attack] Active 06/05/2007 Anxiety disorder NOS Active 06/05/1987 Renal Calculus Active 04/28/2011 Your Upcoming Appointments Date Time Location Reason Provider No Appointments found Your Goals/Additional instructions: Source: [facility] POWERCHART Document Id: [id number] Miscellaneous - Nicki Holt D.N.P., C.N.P. - 09/15/2011 3:43 PM CDT Ambulatory Depart Summary [address] [place] [address] Visit Information Name: ARCHIE BAZAN Visit Date: 09/15/2011 15:43:54 Attending Provider: NICKI HOLT DNP, FNP Primary [...] a day Take for high blood pressure. glipiZIDE (glipiZIDE 5 mg oral tablet) 5 mg Oral once a day 30 minutes before breakfast for high blood sugars. metformin (metformin 1000 mg oral tablet, extended [...] your provider for clarification. Additional Information: Source: [facility] POWERCHART Document Id: [id number] Miscellaneous - John Blandon L.PJairoN. - 09/15/2011 2:38 PM CDT Adult Grape Picker Intake/History Adult Grape Picker Intake/History Entered On: 09/15/2011 14:45 CDT Performed On: 09/15/2011 14:38 CDT by JOHN CONCEPCION LPN Intake Chief Complaint : vaginal discharge talk about DM, light headed this morning Temperature Core : 36.6C(Converted to: 97.9DegF) Peripheral Pulse Rate : 78/min Respiratory Rate : 20/min Heart Rhythm : Regular Systolic Blood Pressure : 136mmHg Diastolic Blood Pressure : 68mmHg NIBP Mean : 91mmHg BP Location : Left upper extremity Blood Pressure Cuff Size : Regular Actual Weight : 88.8kg(Converted to: 195lb 12oz) Weight Source : Standing scale Dosing Weight Clinic : 88.80kg JOHN CONCEPCION LPN - 09/15/2011 14:38 CDT Subjective Pain Symptoms : No JOHN CONCEPCION LPN - 09/15/2011 14:38 CDT Dependent Habits Tobacco Use/Currently Using : No Exposure to Tobacco Smoke : Care provider denies smoking in home Smoking Status : Never smoker Alcohol Use : No JOHN CONCEPCION LPN - 09/15/2011 14:38 CDT Caffeine Use Grid Caffeine Use : Current Type : Tea Frequency : Occasionally JOHN CONCEPCION LPN - 09/15/2011 14:38 CDT Recreational Drug Use Grid Drug Use : None JOHN CONCEPCION LPN - 09/15/2011 14:38 CDT Allergy Allergies (Active) azithromycin Estimated Onset [...] LPN; Reviewed Date: 04/28/2011 7:57 CDT Source: [facility] Labels That TalkCHART Document Id: [id number] documented in this encounter Plan of Treatment Not on filedocumented as of this encounter Procedures Procedure Name Priority Date/Time Associated Comments Diagnosis WET PREP EXAM, Routine 09/15/2011 3:15 PM Result s for this UROGENITAL CDT procedure are i n the results section. documented in this encounter Results Wet Prep Exam, Urogenital (09/15/2011 3:15 PM CDT) P athologist Signature HXWet Prep POWERCHART HXFinal No yeast, POWERCHART Trichomonas , or clue cells seen. HXFinal Many WBC's, POWERCHART bacteria, & epi's Comment: Many WBC's, bacteria,^epi's Specimen (Source) Anatomical Collection Method Collection Time Re ceived Time Location / / Volume Laterality Vagina 09/15/2011 3:15 PM CDT Nicki Holt APRN, C.N.P., D.N.P. LAB MICROBIOLO GY - GENERAL ORDERABLES Performing Organization Address City/State/ZIP Code Phon e Number POWERCHART documented in this encounter Visit Diagnoses Not on filedocumented in this encounter
--- OUTSIDE RECORDS SUMMARY | 2021-09-05 08:03 | XMS_ITS | Encounter Summary ---
:1945 Author Organization [facility] Address [address] [place] [address] Care Team Providers Name Role Phone Unavailable Primary Care Provider Unavailable Encounter Details Date Type Department Care Team Description 06/11/2011 Hospital Encounter HX NO MAPPING Dandy Mccarthy P.T. [address] [place], [place] [phone] Social History Tobacco Use [...] of this encounter Progress Notes Adriane Mccarthy PKeanu. - 06/11/2011 12:00 AM CDT [id number] Message left on pt's voice confirmed voice mail. Source: [facility] [id number] Document Id: [id number] Electronically signed by Sae [facility] Solar Fabrication Technician [id number] at 07/19/2016 7:59 PM CDT documented in this encounter Plan of Treatment Not on filedocumented as of this encounter Visit Diagnoses Not on filedocumented in this encounter
--- OUTSIDE RECORDS SUMMARY | 2021-09-05 08:03 | XMS_ITS | Encounter Summary ---
:1945 Author Organization [facility] Address [address] [place] [address] Care Team Providers Name Role Phone Unavailable Primary Care Provider Unavailable Encounter Details Date Type Department Care Team Description 03/22/2012 Hospital Encounter HX [facility] Nicki Holt, MAL, C.N.P., D.N.P. [address] [place], [place] [phone] (Wo rk) Social History [...] by mouth daily. Take 0 with food [place] [facility]. documented as of this encounter Miscellaneous Notes Miscellaneous - Nicki Holt, D.N.P., C.N.P. - 03/22/2012 2:59 PM [employer]DROG[employer] ENGINEER Results Notification Document Contains Addenda Addendum by JOHN CONCEPCION LPN on 23 March 2012 10:08:45 [employer] Results sent to patient via mail. From: NICKI HOLT DNP, AOC DIRECTOR COMBAT OPERATIONS OFFICER To: VITALIY VILLEDA LPN Sent: 03/22/2012 14:59:45 [employer]OG[employer] ENGINEER ! Show up: 03/22/2012 20:59:45 [facility] Subject: Results Notification Actions: Note to Nurse Source: [facility] POWERCHART Document Id: [id number] Electronically signed by Conversion, [facility] Analog Design Engineer [id number] at 07/16/2016 8:07 PM CDT documented in this encounter Plan of Treatment Not on filedocumented as of this encounter Procedures Procedure Name Priority Date/Time Associated Comments Diagnosis ALANINE AMINOTRANSFERASE Routine 03/22/2012 1:38 Results for this (ALT), S/P PM [employer] ENGINEER procedure are i n the results section. documented in this encounter Results ALT (Alanine Aminotransferase) (03/22/2012 1:38 PM HYDROGEN [employer]OWER [employer]ANT ENGINEER) P athologist Signature Alanine 18 15 - 37 UL POWERCHART Amniotransferas e, LD Specimen (Source) Anatomical Collection Method Collection Time Re ceived Time Location / / Volume Laterality Blood 03/22/2012 1:38 PM [employer]DROG[employer] ENGINEER Nicki Holt APRN, C.N.P., D.N.P. LAB BLOOD ADD- ON Performing Organization Address City/State/ZIP Code Phon e Number POWERCHART documented in this encounter Visit Diagnoses Not on filedocumented in this encounter
--- OUTSIDE RECORDS SUMMARY | 2021-09-05 08:03 | XMS_ITS | Encounter Summary ---
:1945 Author Organization [facility] Address [address] [place] [address] Care Team Providers Name Role Phone Unavailable Primary Care Provider Unavailable Encounter Details Date Type Department Care Team Description 06/11/[address] [facility] ED Ralf Parker M.D. [address] [place], [place] [phone] (Wo rk) Social History [...] documented as of this encounter Discharge Summaries Conversion, Historical Provider Ser - 06/11/2010 11:54 PM CDT ED Discharge Instructions [address] [address] Name: ARCHIE BAZAN Date of : 1945 12:00 AM Visit Date: 06/11/2010 10:01 PM Address: [address] [place] [phone] Primary Care Provider: VICKEY HOLT DNP, BACK FACER IMPORTANT: [facility] would like to thank you for allowing us to assist you with your healthcare needs. The following includes patient education materials and information regarding your injury/illness. Follow-Up Instructions: With: Address: When: VICKEY HOLT [address] [place] [address] phone, [employer] (1) Within As Needed Comments: Patient Education Materials: [id number] CHEST WALL PAIN:COSTOCHONDRITIS The chest pain that you have had today is caused by Costochondritis. This condition is due to an inflammation of the cartilage joining the ribs to the breastbone. It is not caused by heart or lung problems. Although the exact cause for costochondritis is not known, it often occurs during times of emotional stress. It can be painful, but it is not dangerous. It usually disappears within one to two weeks, but may recur. Rarely, a more serious condition may cause symptoms similar to costochondritis; therefore, watch for the warning signs listed below. HOME CARE: 1. If you feel that emotional stress is a cause of your condition, try to identify sources of that stress. It may not be obvious! Learn ways to deal with the stress in your life such as regular exercise, muscle relaxation, meditation, or simply taking time out for yourself. For more information about this, consult your doctor or go to a local bookstore and review books and tapes available on the subject of stress reduction. 2. You may use acetaminophen (Tylenol) or ibuprofen (Motrin, Advil) to control pain, unless another pain medicine was prescribed. [ NOTE: If you have liver disease or ever had a stomach ulcer, talk with your doctor before using these medicines.] 3. The use of heat (hot wet compress or heating pad) with or without local analgesic creams (Deep Heat Rub, Titus Caro) will be helpful to reduce pain. FOLLOW UP with your doctor as directed or sooner if you do not start to improve within the next two days. [NOTE: If an X-ray or EKG (cardiogram) was made, another specialist will review it. You will be notified of any new findings that may affect your care.] GET PROMPT MEDICAL ATTENTION if any of the following occur: ?? A change in the type of pain: if it feels different, becomes more severe, lasts longer, or spreads into your shoulder, arm, neck, jaw or back ?? Shortness of breath or increased pain with breathing ?? Weakness, dizziness, or fainting ?? Cough with dark colored sputum (phlegm) or blood ?? Abdominal pain ?? Dark red or black stools Fever over 100.0?? F (37.8?? C) ?? [id number] The [employer], [address] [place] [address], [place] [address]. All rights reserved. This information is not intended as a substitute for professional medical care. Always follow your healthcare professional's instructions. Discharge Prescriptions & Home Medications: Medication/Strength Dose Route Frequency Indications/Special Instructions/Comments simvastatin (simvastatin 10 mg oral tablet) 10 mg Oral once a day (at bedtime) metformin (metformin 500 mg oral tablet) 1 tab(s) Oral once a day with breakfast glipiZIDE (glipiZIDE 5 mg oral tablet) 5 mg Oral once a day alprazolam (Xanax 0.5 mg oral tablet) 1 tab(s) Oral Anxiety aspirin (aspirin 81 mg oral tablet) 1 tab(s) Oral once a day Attention: If you have any medications at home that are not on this list, please contact your provider for clarification. Medication Reconciliation: Reconciliation is a process of identifying the most accurate list of all medications a patient is taking - including name, dosage, frequency, and route - and using this list to provide to the patient information about how to take those medications. ARCHIE BAZAN or sherwin has reviewed the home [...] the instructions above carefully. If you are a patient that is being discharged from the Emergency Department after receiving narcotics or other medications that may impair your judgment you may be a risk to yourself or others if you operate a motor vehicle. We recommend that you arrange a ride home with a responsible republican. I, ARCHIE BAAZN , or responsible republican have received this information and my questions have been answered. I have discussed any challenges I see with this plan with the nurse or physician. Patient Signature or Responsible Green Party Date/Time Provider Signature Date/Time Medication Reconciliation: Reconciliation is a process of identifying the most accurate list of all medications a patient is taking - including name, dosage, frequency, and route - and using this list to provide to the patient information about how to take those medications. ARCHIE BAZAN or sherwin has reviewed the home [...] the instructions above carefully. If you are a patient that is being discharged from the Emergency Department after receiving narcotics or other medications that may impair your judgment you may be a risk to yourself or others if you operate a motor vehicle. We recommend that you arrange a ride home with a responsible republican. BENI Matta LURENE MURIEL , or responsible republican have received this information and my questions have been answered. I have discussed any challenges I see with this plan with the nurse or physician. Patient Signature or Responsible Green Party Date/Time Provider Signature Date/Time This document has images extracted. Please consider using [employer] for all your patient education needs. Source: [facility] eco4cloudCHART Document Id: [id number] Conversion, Historical Provider Ser - 06/11/2010 11:54 PM CDT ED Depart Summary [facility] Emergency Department Clinical Discharge Summary PERSON INFORMATION Name ARCHIE BAZAN Age 65 Years 1945 12:00 AM Sex Female Language Central African PCP VICKEY HOLT DNP, BACK FACER Marital Status [facility] [id number] Visit Id Visit Reason Chest pain; Chest pain; chest pain Specialty Enc Type Emergency Med Service Emergency Medicine Referred by Track Group [facility] ED Discharge 06/11/2010 11:54 PM Tracking Id [id number] Checkout 06/11/2010 11:54 PM Checkin 06/11/2010 10:01 PM Acuity 3 -Urgent Dispo Type Discharged to Home or Self Care Arrival 06/11/2010 10:01 PM Reg Status LOS 000 01:53 Address: [address] [place] [phone] Comment: PROVIDER INFORMATION DIAGNOSIS Costochondritis 733.6 Comment: PATIENT EDUCATION INFORMATION Instructions: CHEST WALL PAIN, Costochondritis Follow up: With: Address: When: VICKEY HOLT [address] [place] [address] phone, business (1) Within As Needed Comments: Source: [employer] Document Id: [id number] documented in this encounter Nursing Notes Conversion, Historical Provider Ser - 06/11/2010 11:01 PM CDT pain fluctuation Chest discomfort developed this evening while watching tv at home, rated 4/10. States pain increases with deep inhalation and with movement. Skin warm, dry pink [facility] Document Id: [id number] Conversion, Historical Provider Ser - 06/11/2010 10:51 PM CDT ED Pain Assessment ED Pain Assessment Entered On: 06/11/2010 22:53 CDT Performed On: 06/11/2010 22:51 CDT by EMMA MCKEON RN Pain Pain Assessment Grid Pain 1 Location: Chest Acceptable Intensity: 3 Aggravating Factors: Movement EMMA MCKEON RN - 06/11/2010 22:51 CDT Source: [facility] [employer] Document Id: [id number] CDT!7 Conversion, Historical Provider Ser - 06/11/2010 10:25 PM CDT ED Primary Assessment ED Primary Assessment Entered On: 06/11/2010 22:27 CDT Performed On: 06/11/2010 22:25 CDT by EMMA MCKEON RN Reason For Visit Problems(Active) Anxiety disorder NOS Name of Problem: Anxiety disorder NOS ; Onset Date: 1987 ; Recorder: PETRA RUSSELL LPN; Confirmation: Confirmed ; Classification: Nursing ; Code: 1231 ; Contributor System: DidascoChart ; Last Updated: 03/19/2010 10:21 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 ; Life Cycle Date: 03/19/2010 ; LifeCycle Status: Active ; Responsible Provider: PETRA RUSSELL LPN; Vocabulary: ICD-9-CM Hyperlipidemia/Dyslipidemia Name of Problem: Hyperlipidemia/Dyslipidemia ; Onset Date: 2004 ; Recorder: PETRA RUSSELL LPN; Confirmation: Confirmed ; Classification: Nursing ; Code: 1231 ; Contributor System: PowerChart ; Last Updated: 03/19/2010 10:15 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 ; Life Cycle Date: 02/2010 ; Life Cycle Status: Active ; Responsible Provider: PETRA RUSSELL LPN; Vocabulary:ICD-9-CM NIDDM [non-insulin dependent diabetes mellitus] Name of Problem: NIDDM [non- insulin dependent diabetes mellitus] ; Onset Date: 2007 ; Recorder: PETRA RUSSELL LPN; Confirmation: Confirmed ; Classification: Nursing ; Code: 1231 ; Contributor System: PowerChart ; Last Updated: 03/19/2010 10:14 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 ; Life Cycle Date: 03/19/2010 ; Life Cycle Status: Active ; Responsible Provider: PETRA RUSSELL LPN; Vocabulary: ICD-9-CM Osteoarthritis Name of Problem: Osteoarthritis ; Recorder: PETRA RUSSELL LPN; Confirmation: Confirmed ; Classification: Nursing ; Code: 1231 ; Contributor System: PowerChart ; Last Updated: 03/19/2010 10:17 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 ; Life Cycle Date: 03/19/2010 ; Life Cycle Status: Active ; Responsible Provider: PETRA RUSSELL LPN; Vocabulary: ICD-9-CM Osteoporosis NOS Name of Problem: Osteoporosis NOS ; Recorder: PETRA RUSSELL LPN; Confirmation: Confirmed ; Classification: Nursing ; Code: 1231 ; Contributor System: PowerChart ; Last Updated: 03/19/2010 10:17 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 ; Life Cycle Date: 03/19/2010 ; Life Cycle Status: Active ; Responsible Provider: PETRA RUSSELL LPN; Vocabulary: ICD-9-CM Rosacea Name of Problem: Rosacea ; Onset Date: 2006 ; Recorder: PETRA RUSSELL LPN; Confirmation: Confirmed ; Classification: Nursing ; Code: 1231 ; Contributor System: PowerChart ; Last Updated: 03/19/2010 10:18 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 ; Life Cycle Date: 03/19/2010 ; Life Cycle Status: Active ; Responsible Provider: PETRA RUSSELL LPN; Vocabulary: ICD-9-CM TIA [Transient ischemic attack] Name of Problem: TIA [Transient ischemic attack] ; Onset Date: 2007 ; Recorder: PETRA RUSSELL LPN; Confirmation: Confirmed ; Classification: Nursing ; Code: 1231 ; Contributor System: PowerChart ; Last Updated: 03/19/2010 10:19 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 ; Life Cycle Date: 03/19/2010 ; Life Cycle Status: Active ; Responsible Provider: PETRA RUSSELL LPN; Vocabulary: ICD-9-CM Diagnoses(Active) Chest pain Date: 06/11/2010 22:06 CDT ; Diagnosis Type: Reason For Visit ; Confirmation: Complaint of ; Classification: Medical ; Clinical Service: Emergency medicine ; Code: PNED ; Probability: 0 ; Diagnosis Code: [id number] Triage Mode of Arrival ED: Private vehicle Track: Medical Languages: Central African Pain Symptoms: Yes Vital Signs Assessed: Yes EMMA MCKEON RN - 06/11/2010 22:25 CDT Pain Pain Assessment Grid Pain 1 Location: Chest Acceptable Intensity: 4 EMMA MCKEON RN - 06/11/2010 22:25 CDT Vital Signs Temperature Core: 36.5C(Converted to: 97.7DegF) Peripheral Pulse Rate: 76/min Systolic Blood Pressure: 178mmHg (>HHI) Diastolic Blood Pressure: 84mmHg NIBP Mean: 115mmHg BP Location: Left upper extremity SpO2: 98% Oxygen Therapy: Room air MIKEEMMA Justin GIRARD - 06/11/2010 22:25 CDT ED Physician Notification Time ED Physician Notification Time: 06/11/2010 22:25 CDT EMMA MCKEON RN - 06/11/2010 22:25 CDT RASHEED RASHEED Level 1: No RASHEED Level 2: Yes MIKE EMMASOUMYA Anderson RN - 06/11/2010 22:25 CDT Allergy Allergies (Active) azithromycin Estimated Onset Date: Unspecified ; Created By: PETRA RUSSELL LPN; Reaction Status: Active ; Category: Drug ; Substance: azithromycin ; Type: Allergy ; Updated By: PETRA RUSSELL LPN; Reviewed Date: 06/11/2010 22:30 CDT Benicar Estimated Onset Date: Unspecified ; Created By: PETRA RUSSELL LPN; Reaction Status: Active ; Category: Drug ; Substance: Benicar ; Type: Allergy ; Updated By: PETRA RUSSELL LPN; Reviewed Date: 06/11/2010 22:30 CDT Respiratory Airway: Patent Respirations: Unlabored Respiratory Pattern: Regular Oxygen Start Time: 06/11/2010 22:25 CDT Oxygen Therapy: Nasal Cannula Oxygen Flow Rate: 4.000L/min MIKE EMMASOUMYA Anderson RN - 06/11/2010 22:32 CDT Cardiovascular Heart Rhythm: Regular Skin Color: Normal for ethnicity Skin Description: Dry Skin Temperature: Warm Cardiovascular Detailed Assessment: Yes MIKE EMMASOUMYA Anderson RN - 06/11/2010 22:32 CDT CV Detailed CV Patient Stated Symptoms: Chest pain Nail Bed Color: [place] Cardiac Rhythm: Sinus rhythm, PVC Ectopy Frequency: Occasional (4-8/min) Ectopic Pattern: Quadrageminy Edema: None Homans' Sign: Negative MIKE EMMASOUMYA Anderson RN - 06/11/2010 22:32 CDT Dorsalis Pedis Pulse, Left: 2+ Normal Dorsalis Pedis Pulse, Right: 2+ Normal EMMA MCKEON RN - 06/11/2010 22:32 CDT Neurological Level of Consciousness: Alert Orientation: Oriented x 3 Characteristics of Speech: Clear Neuro Patient Stated Symptoms: None Gait: Steady Swallowing Difficulty/Aspiration Risk: None Loss of Consciousness: No EMMA MCKEON RN - 06/11/2010 22:32 CDT ED Psychosocial Affect/Behavior: Calm, Cooperative, Appropriate Domestic Concerns: None EMMA MCKEON RN - 06/11/2010 22:32 CDT Domestic Violence Screen Partner Emotional/Physical Abuse Hx: No Other Physical Abuse: No Patient Safety Assessment: No Sexual Abuse: No EMMA MCKEON RN - 06/11/2010 22:32 CDT Gastrointestinal Nutrition ED: Adequate EMMA MCKEON RN - 06/11/2010 22:32 CDT Musculoskeletal Fall Prevention Education Provided: Yes Activity Aldo: Walks frequently Ambulatory Devices: None Musculoskeletal Patient Stated Symptoms: None EMMA MCKEON RN - 06/11/2010 22:32 CDT Social Habits Alcohol Use Grid Alcohol Use: No EMMA MCKEON RN - 06/11/2010 22:32 CDT Tobacco Use Grid Tobacco Use: None EMMA MCKEON RN - 06/11/2010 22:32 CDT Recreational Drug Use Grid Drug Use: None EMMA MCKEON RN - 06/11/2010 22:32 CDT Peripheral IV Peripheral IV Assess/Intervention Grid Peripheral IV #1 IV Activity: Start Number of Attempts: 1 Date of Insertion: 06/11/2010 CDT IV Site: Hand Laterality: Left Catheter Size: 22 Catheter Type: Over the needle Site Condition: No complications Drainage Description: None Infiltration Score: 0 Phlebitis Score: 0 EMMA MCKEON RN - 06/11/2010 22:32 CDT Source: [facility] POWERCHART Document Id: [id number] CDT!72 documented in this encounter ED Notes Conversion, Historical Provider Ser - 06/11/2010 11:52 PM CDT ED Treatments and Procedures ED Treatments and Procedures Entered On: 06/11/2010 23:53 CDT Performed On: 06/11/2010 23:52 CDT by REGENSCHEID, EMMA L RN Oxygen Therapy Oxygen Start Time: 06/11/2010 22:25 CDT Oxygen Therapy: Nasal Cannula Oxygen Stop Time: 06/11/2010 23:45 CDT Oxygen Flow Rate: 4.000L/min EMMA MCKEON RN - 06/11/2010 23:52 CDT Peripheral IV Peripheral IV Assess/Intervention Grid Peripheral IV #1 IV Activity: Discontinue Number of Attempts: 1 Date of Insertion: 06/11/2010 CDT IV Site: Hand Laterality: Left Catheter Size: 22 Catheter Type: Over the needle Site Condition: No complications Drainage Description: None Infiltration Score: 0 Phlebitis Score: 0 EMMA MCKEON RN - 06/11/2010 23:52 CDT Source: [employer] Document Id: [id number] CDT!20 Conversion, Historical Provider Ser - 06/11/2010 11:51 PM CDT ED Disposition Summary ED Disposition Summary Entered On: 06/11/2010 23:51 CDT Performed On: 06/11/2010 23:51 CDT by EMMA MCKEON RN ED Disposition Summary Accompanied By: Spouse Mode of Discharge: Ambulatory Transportation: Private vehicle Discharge From ED With: Home Med List Patient Status at Discharge from ED: Unchanged EMMA MCKEON RN - 06/11/2010 23:51 CDT Source: [employer] Document Id: [id number] CDT!7 Ralf Parker M.D. - 06/11/2010 10:20 PM CDT Chest Pain *ED Patient: ARCHIE BAZAN - CF MRN Age: 65 years Sex: Female : 1945 Author: RALF PARKER MD Basic Information Time seen: Date & time 06/11/2010 22:21:00, Immediately upon arrival. History source: Patient. Arrival mode: Private vehicle. History limitation: None. History of Present Illness The patient presents with chest pain. The onset was 4 hours ago. The course/duration of symptoms is constant. Location: Central chest. Radiating pain:started in neck. The character of symptoms is pressure, achy and pleuritic. The degree at onset was moderate. The degree at maximum was moderate.The degree at present is moderate and 4 /10. . Exacerbating factors consist of breathing. The relieving factor is none. Risk factors consist of diabetes mellitus, obesity, hyperlipidemia family history of coronary artery disease. Prior episodes: none. Therapy today None. Associated symptoms: palpitations. Additional history: not exertional, does not radiate, no diaphoresis. Similar pain in january 2010 diagnosed and diagnosed with GERD/costochondritis.. Pain stared in neck, now in upper chest, worst with breathing, not severe, no history of CAD, no radiation, no n/v, started while watching television. Review of Systems Constitutional symptoms: no fever no chills, no weakness, no fatigue. Skin symptoms: Negative except as documented in HPI. Eye symptoms: Negative except as documented in HPI. ENMT symptoms: Negative except as documented in HPI. Respiratory symptoms: no shortness of breath no cough. Cardiovascular symptoms: Chest pain, palpitations. Gastrointestinal symptoms: Negative except as documented in HPI. Genitourinary symptoms: Negative except as documented in HPI. Musculoskeletal symptoms: Negative except as documented in HPI. Neurologic symptoms: Negative except as documented in HPI. Psychiatric symptoms: Anxiety. Health Status Allergies: . Allergic Reactions (all) azithromycin, Benicar Canceled/Inactive Reactions NKA Medications: . Medication Orders nitroglycerin, 0.4 mg, 1 tab(s), SL, q5min, PRN, Max of 3 doses Sodium Chloride 0.9% (Saline flush), 10 mL, IV, PRN, PRN Prescriptions and Home Medications aspirin (aspirin 81 mg oral tablet), 1 tab(s), PO, Daily, 90 tab(s) alprazolam (Xanax 0.5 mg oral tablet), 1 tab(s), PO, tab(s), PRN omega-3 polyunsaturated fatty acids (Fish Oil oral capsule), one, PO, 1xDay meal glipiZIDE (glipiZIDE 5 mg oral tablet), 5 mg, 1 tab(s), PO, Daily, 90 tab(s) metformin (metformin 500 mg oral tablet), 1 tab(s), PO, 1xDay meal, 180 tab(s) simvastatin (simvastatin 10 mg oral tablet), 10 mg, 1 tab(s), PO, Bedtime, 90 tab(s) Past Medical/ Family/ Social History Medical history: Medical history, No active or resolved past medical history items have been selected or recorded.Reviewed as documented in chart. Surgical history: Surgical history. Lipid panel This panel must include the following: Cholesterol, serum, total (12870), Lipoprotein, direct measurement, high density cholesterol (HDL cholesterol) (78344), Triglycerides (52098) (05063) in 2010 at 64 Years. Comments: 03/29/2010 09:40 - SHAHIDA PINEDO Hx: 65953 - LIPID PANEL Hemoglobin; glycosylated (A1C) (63461) in 2010 at 64 Years. Comments: 03/29/2010 09:40 - SHAHIDA PINEDO Hx: 50462 - GLYCATED HEMOGLOBIN Hemoglobin; glycosylated (A1C) (61947) in 2010 at 64 Years. Comments: 02/28/2010 16:47 - SHAHIDA PINEDO Hx: 66167 - GLYCATED HEMOGLOBIN Hemoglobin; glycosylated (A1C) (62460) in 2010 at 63 Years. Comments: 02/28/2010 16:47 - SHAHIDA PINEDO Hx: 37487 - GLYCATED HEMOGLOBIN Appendectomy ([id number]) in 1959 at 13 Years. History of repair of umbilical hernia ([id number]). Comments: 03/19/2010 16:22 - PETRA RUSSELL LPN Times two 1997, 2000 section ([id number]). Comments: 03/19/2010 16:23 - PETRA RUSSELL LPN Times Two 1964, 1968 Biopsy of breast ([id number]). Physical Examination Vital signs: Time 06/11/2010 22:32:00, Vital Signs. 06/11/2010 22:25 CDT Mean Arterial Pressure 115 mmHg General: Alert. no acute distress. Skin: Warm. dry. pink. Head: Normocephalic Neck: Supple. trachea midline. mild tenderness to palpation, no specific area. Ears, nose, mouth and throat: Tympanic membranes clear Cardiovascular: Regular rate and rhythm. No edema. S1. S2. Non-displaced PMI. Systolic murmur:2 /6 and at: right sternal border. Capillary refill: within normal limits. Respiratory: Lungs are clear to auscultation. respirations are non-labored. breath sounds are equal. Symmetrical chest wall expansion. Chest wall: markedly tender to palpation over left chest wall Back: Nontender. Normal range of motion. Gastrointestinal: Soft. Nontender. Non distended. Genitourinary Neurological: Alert and oriented to person, place, time, and situation Psychiatric: Cooperative Medical Decision Making Differential Diagnosis:Unstable angina, angina, atypical chest pain, costochondritis. Rationalemarkedly tender to palpation over left chest wall and pain with deep breathing. Documents reviewed:Prior records, previous records show ED documents for chest wall discomfort as well as palpations and irregular heart beat which prompted subsequent normal 48 holter monitor workups. Electrocardiogram:Rate 78, normal sinus rhythm, No ST-T changes, normal [place] & QRS intervals. Results review:Lab results : Lab View. 06/11/2010 22:30 CDT Troponin-T <0.01 ng/mL Chest X-Ray:No acute disease process, interpretation by Emergency Physician, lungs clear, heart normal. Reexamination/ Reevaluation Re-examination/Re-evaluation:Time 06/11/2010 23:34:00, Vital signs Reviewed Results: results included from flowsheet : Vital Signs(Date Range: 06/10/2010 0:00 CDT - 06/11/2010 23:34 CDT), Course Unchanged. Impression and Plan Diagnosis Costochondritis 733.6 (Discharge, Emergency medicine, Medical) Discharge plan Condition: Stable. Dispositioned: Time 06/11/2010 23:34:00, To home. Patient was given the following educational materials: CHEST WALL PAIN, Costochondritis. Follow up with: Primary Care Physician, In: as needed. Counseled: Patient, Family, Regarding diagnosis, Regarding treatment plan, Regarding prescription, Patient indicated understanding of instructions. Source: [facility] POWERCHART Document Id: [id number]} documented in this encounter Miscellaneous Notes Miscellaneous - Conversion, Historical Provider Ser - 06/11/2010 11:51 PM CDT Valuables/Belongings Valuables/Belongings Entered On: 06/11/2010 23:51 CDT Performed On: 06/11/2010 23:51 CDT by EMMA MCKEON RN Valuables/Belongings Belongings Sent Home With: with patient EMMA MCKEON RN - 06/11/2010 23:51 CDT Source: [employer] Document Id: [id number] CDT!3 Miscellaneous - Conversion, Historical Provider Ser - 06/11/2010 10:01 PM CDT Facility Charge Ticket Facility Charge Ticket Entered On: 06/11/2010 23:52 CDT Performed On: 06/11/2010 22:01 CDT by EMMA MCKEON RN Facility Charge TVL Level for Facility Charge Ticket: Level 5 Mode of Arrival ED: Private vehicle [facility] Mode of Arrival Interpreted: Standard [facility] Process Management: None [facility] Order Management: EKG, RT, Ancillary Services, Xray - plain films, Lab tests 30 Minutes Critical Care: No [facility] Nursing Assessment: Triage and 3-5 nursing assessments [facility] Disposition: Discharge [facility] Total Points with Diagnosis Control: 15 [facility] Visit Level: 84148 Level 5 EMMA MCKEON RN - 06/11/2010 23:51 CDT Chief Complaint 8.50.02 Reason For Visit Category: Cardiorespiratory ED Chief Complaint Cardiorespiratory 8.5: Chest pain TVL Ca TVL for Facility Charge Ticket Dx: Level 5 EMMA MCKEON RN - 06/11/2010 23:51 CDT Source: [employer] Document Id: [id number] CDT!17 documented in this encounter Plan of Treatment Not on filedocumented as of this encounter Visit Diagnoses Not on filedocumented in this encounter
--- OUTSIDE RECORDS SUMMARY | 2021-09-05 08:03 | XMS_ITS | Encounter Summary ---
:1945 Author Organization [facility] Address [address] [place] [address] Care Team Providers Name Role Phone Unavailable Primary Care Provider Unavailable Encounter Details Date Type Department Care Team Description 04/08/2012 Hospital Encounter HX [facility] Nicki Anthony, MAL, C.N.P., D. N.P. [address] [place] [address] (Wo rk) Social History Tobacco [...] mouth daily. Take 0 with food for [employer] ([employer] health. documented as of this encounter Progress Notes Conversion, Historical Provider Ser - 04/08/2012 8:51 AM CST [id number] HEALTH AND WELLNESS COACHING Followup visit: Today we discussed the patient's goal successes. She was 100% successful in her goals. She lost 1 to 2 pounds in the last week and she also noted that her even noticed this in her face. He is one that does not even notice when she gets her haircut so this made her feel good and increased her confidence and also her ability to move forward with continuing on with healthy lifestyle habits. Her ideal weight is 150 and currently is at 180. She is at height of 5'2. One of her obstacles would be avoiding sweets. Other motivation for her to continue with healthy lifestyle would be to get off her medications for cholesterol, diabetes, blood pressure and her thyroid. We discussed some new g oals for the week. HEALTHY GOALS FOR THE WEEK: 1. Create a healthy meal planning menu which she would write down and then share with me next week. 2. Walk 5 to 10 minutes each day. She rated both these goals at 10/10 confidence level. Annie Almonte DOCID: [id number] Electronically Signed By: SE ABEBA GALAN, INBOX [id number] On: 07/05/2014 02:05 PM Source: [facility] CLIFF Document Id: [id number] Addendum by SE ABEBA GALAN, INBOX LEA02 on 05 Jul 2014 14:05 CDT [facility] administratively closed. Provider on longer with facility. Report filed unsigned. Modified by and Electronically Signed by: SE ABEBA GALAN, INBOX LEA02 On: 07/05/2014 02:05 PM Source: [facility] POWERCHART Document Id: [id number] documented in this encounter Plan of Treatment Not on filedocumented as of this encounter Visit Diagnoses Not on filedocumented in this encounter
--- OUTSIDE RECORDS SUMMARY | 2021-09-05 08:03 | XMS_ITS | Encounter Summary ---
:1945 Author Organization [facility] Address [address] [place] [address] Care Team Providers Name Role Phone Unavailable Primary Care Provider Unavailable Encounter Details Date Type Department Care Team Description 05/27/2011 - Hospital Encounter HX NO MAPPING Tona Colon, 09/24/2011 [place] Social History Tobacco Use Types Packs/Day Years [...]
--- OUTSIDE RECORDS SUMMARY | 2021-09-05 08:03 | XMS_ITS | Encounter Summary ---
:[address] [facility] Address [address] [place] [address] Care Team Providers Name Role Phone Unavailable Primary Care Provider Unavailable Encounter Details Date Type Department Care Team Description 03/31/[address] [facility] [place] Nicki Anthony, MAL, C.N.P., D. N.P. [address] [place] [address] (Wo rk) Social History Tobacco [...] mouth daily. Take 0 with food for [employer]. documented as of this encounter Consult Notes Conversion, Historical Provider Ser - 03/31/2012 11:01 AM CST [id number] CHIEF COMPLAINT/REASON FOR VISIT The patient was seen on 03/31/2012 for the area of diabetes. HISTORY OF PRESENT ILLNESS The patient reports being diagnosed with diabetes in 2007. Other symptoms that she experiences are visual disturbance without a headache. Some other symptoms of her diabetes includes low blood sugar of being lightheaded, also feeling stressed, and doesn't like crowds. She classifies herself as a worrier. Current stage of change preparation matrix sleep she rated herself a 2-3 out of 10 (she oftenlies in bed until midnight and cannot sleep then wakes up early at 5 AM but does not report being tired), stress level 7/10, mood 5/10, energy 8- 9/10. In addition to her diabetes, we discussed patient's worry level and stress level. Action items that we would also like to look at would be about changing her perception around worry and control. Things that help her to worry less are: 1. Spiritual practice and prayer. 2. Being around friends and other people that have a positive and healthy outlook. 3. Participating with socializing with her quilting ladies and friends. 4. Getting massages. ULTIMATE GOAL: The patient would like to get off of her metformin and also cholesterol medication. Next visit will be weekly. GOALS FOR THE WEEK: 1. She is going to go on a shopping spree of good and healthy food choices. She is a 10/10 confident that she will be able to achieve this. 2. Complete the goal setting worksheet and she is a 10/10 for confidence that she will complete this. AREAS TO DISCUSS NEXT VISIT: Relaxation CD or stretching. Annie Pérez/arnol DOCID: [id number] cc: Nicki Anthony D.N.P./NereidaN.P Electronically Signed By: ANNIE PÉREZ On: 04/27/2012 06:08 PM Source: [facility] MHSDOLBEYNONRADSYS Document Id: [id number] documented in this encounter Plan of Treatment Not on filedocumented as of this encounter Visit Diagnoses Not on filedocumented in this encounter
--- OUTSIDE RECORDS SUMMARY | 2021-09-05 08:03 | XMS_ITS | Encounter Summary ---
:1945 Author Organization [facility] Address [address] [place] [address] Care Team Providers Name Role Phone Unavailable Primary Care Provider Unavailable Encounter Details Date Type Department Care Team Description 04/29/2012 Hospital Encounter HX [facility] Nicki Holt, MAL, C.N.P., D. N.P. [address] [place] [address] (Wo rk) Social History Tobacco [...] Reading Time Taken Comments Blood Pressure 122/70 04/29/2012 1:57 PM CDT Pulse 70 04/29/2012 1:57 PM CDT Temperature - - Respiratory Rate 16 04/29/2012 1:57 PM CDT Oxygen Saturation - - Inhaled Oxygen Concentration - - Weight 87 kg (191 lb 12.8 oz) 04/29/2012 1:57 PM CDT Height 161 cm (5' 3.39) 04/29/2012 1:57 PM CDT Body Mass Index 33.56 04/29/2012 1:57 PM CDT documented in this encounter Medications at Time of Discharge Medication Sig Dispensed Refills Start Date End Date ASPIRIN ORAL Take 81 mg by mouth daily. Take 0 with food for heart health. documented as of this encounter Progress Notes Nicki Holt D.N.P., C.N.P. - 04/29/2012 1:50 PM CDT [id number] CHIEF COMPLAINT/REASON FOR VISIT Diabetic examination. HISTORY OF PRESENT ILLNESS The patient is a 66-year-old female who presents to the clinic today for a routine diabetic examination. Presently at this time, she is working with our health and living coach for her diabetes in which she thinks overall is going very well. She indicates that just in the last couple of months shethinks that she has been able to keep 5 pounds off. She is incorporating exercise into her daily activity. She also indicates that her biggest concern are diabetic lows. She is on glipizide in whichshe takes 2.5 mg by mouth once a day. Often I will note that the patient over corrects when her blood sugars are low, in which she indicates that when her blood sugars are low she will eat 2 small mini candy bars. She is currently working on adjusting her diet as well to more of a healthy diet. Sheotherwise indicates that she is not having any other further concerns or issues and is due next month for all of her diabetic labs. The patient otherwise denies having any other further concerns or issues at this time. PAST MEDICAL/SURGICAL HISTORY Reviewed. Please see chart. FAMILY HISTORY Reviewed. Please see chart. CURRENT MEDICATIONS Reviewed. Please see chart. ALLERGIES Reviewed. Please see chart. PHYSICAL EXAMINATION GENERAL: The patient is alert and oriented x3. HEAD: Normocephalic, atraumatic. PUPILS: Pupils equal, round, and reactive to light and accommodation. OROPHARYNX: [place] and moist. TMs: Bilateral tympanic membranes are clear. Bony landmarks noted and within normal limits. NARES: Patent. No erythema or drainage noted. NECK: No anterior or posterior lymphadenopathy noted. HEART: Regular. S1, S2. No murmurs, rubs or gallops noted. LUNGS: Clear to auscultation. No prolonged expiratory phases, wheezing, rales or rhonchi noted. SKIN: Without unusual rashes or suspicious lesions. EXTREMITIES: Diabetic foot examination was completed and noted to be unremarkable (please see EMR for documentation). LABORATORY: Hemoglobin A1c 7.45 on 03/09/2012. Hemoglobin A1c recheck is next due on 06/07/2012. IMPRESSION/REPORT/PLAN Type 2 diabetes mellitus. PLAN: Discussed overall findings with the patient. Given the patient's somewhat concern regarding diabetic lows with the use of glipizide, I did discontinue this medication as we will continue to have her take her metformin 1000 mg by mouth extended release daily. The patient felt comfortable with this treatment plan as I foresee that we may even continue to see improvement in her hemoglobin A1c just with her incorporating exercise in her daily routine. The patient felt very comfortable with this treatment plan. The patient otherwise denied having any other further questions or concerns. The patient ambulated out of the clinic in no acute distress. Patient Education Ready to learn No apparent learning barriers were identified Learning preferences include listening Explained diagnosis and treatment plan Patient/Child/Caregiver expressed understanding of the content Nicki Holt D.N.P./F.N.P/shi DOCID: [id number] Electronically Signed By: NICKI HOLT DNP, FNP On: 05/04/2012 07:35 PM Source: [facility] MHSDOLBEYNONRADSYS Document Id: [id number] documented in this encounter Miscellaneous Notes Miscellaneous - Nicki Holt D.N.P., C.N.P. - 04/29/2012 3:00 PM CDT Ambulatory Patient Summary [address] [address] Visit Information Name: ARCHIE BAZAN [facility] Number: [id number] Current Date: 04/29/2012 15:00:41 Physicians Attending Provider: NICKI HOLT DNP, FNP [...] medications. Medication/Strength Dose Route Frequency Indications/Special Instructions/Comments levothyroxine (levothyroxine 25 mcg (0.025 mg) oral tablet) 25 mcg Oral once a day amlodipine (Norvasc 2.5 mg oral tablet) 2.5 mg Oral once a day Take for high blood pressure. omeprazole (omeprazole 20 mg oral delayed release capsule) 20 mg Oral once a day simvastatin (simvastatin 10 mg oral tablet) 10 mg Oral once a day (at bedtime) Take for high cholesterol. aspirin (aspirin 81 mg oral tablet) 81 mg Oral once a day Take with food for heart health. metformin (metformin 1000 mg oral tablet, extended release) 1,000 mg Oral once a day Take for high blood sugars. alprazolam (Xanax 0.5 mg oral tablet) 0.5 [...] Upcoming Appointments Date Time Location Reason Provider 04/30/2012 10:45 [facility] consult [facility] Health Photographer Assistant 05/06/2012 08:45 [facility] consult [facility] Health Photographer Assistant Your Goals/Additional instructions: Source: [facility] POWERCHART Document Id: [id number] Miscellaneous - Nicki Holt D.N.P., C.N.P. - 04/29/2012 3:00 PM CDT Ambulatory Depart Summary [id number] [place] [address] Visit Information Name: ARCHIE BAZAN [facility] Number: [id number] Visit Date: 04/29/2012 15:00:40 Attending Provider: NICKI HOLT DNP, FNP Primary [...] medications. Medication/Strength Dose Route Frequency Indications/Special Instructions/Comments levothyroxine (levothyroxine 25 mcg (0.025 mg) oral tablet) 25 mcg Oral once a day amlodipine (Norvasc 2.5 mg oral tablet) 2.5 mg Oral once a day Take for high blood pressure. omeprazole (omeprazole 20 mg oral delayed release capsule) 20 mg Oral once a day simvastatin (simvastatin 10 mg oral tablet) 10 mg Oral once a day (at bedtime) Take for high cholesterol. aspirin (aspirin 81 mg oral tablet) 81 mg Oral once a day Take with food for heart health. metformin (metformin 1000 mg oral tablet, extended release) 1,000 mg Oral once a day Take for high blood sugars. alprazolam (Xanax 0.5 mg oral tablet) 0.5 mg Oral every 8 hours as needed for Anxiety Take for anxiety. clobetasol topical (clobetasol topical 0.05% solution) 1 shauna Topical two times a day as needed for Rash Attention: If you have any medications at home that are not on this list, DO NOT take them until youcontact your provider for clarification. Additional Information: Source: [facility] POWERCHART Document Id: [id number] Miscellaneous - Nicki Holt D.N.P., C.N.P. - 04/29/2012 2:58 PM CDT Quality Measures Quality Measures Entered On: 04/29/2012 14:59 CDT Performed On: 04/29/2012 14:58 CDT by NICKI HOLT DNP, FNP Diabetes Date of Last Eye Exam : 10/31/2011 CDT Date of Last Foot Exam : 04/29/2012 CDT NICKI HOLT DNP, FNP - 04/29/2012 14:58 CDT Foot Exam Grid Left foot exam Right foot exam Dorsalis Pedis Pulse : Normal Normal Post Tibial Pulse : Normal Normal Capillary Refill : Less than 3 seconds Less than 3 seconds 10 gm Monofilament Sensation Check : Intact Intact NICKI HOLT DNP, PULLER MACHINE - 04/29/2012 14:58 CDT NICKI HOLT DNP, FNP - 04/29/2012 14:58 CDT Source: [facility] POWERCHART Document Id: [id number] Miscellaneous - Vitaliy Darnell L.PJairoNJairo - 04/29/2012 1:57 PM CDT Adult Auto Body Detailer Intake/History Adult Auto Body Detailer Intake/History Entered On: 04/29/2012 14:00 CDT Performed On: 04/29/2012 13:57 CDT by VITALIY DARNELL LPN Intake Chief Complaint : F/U visit Temperature Core : 36.5C(Converted to: 97.7DegF) Peripheral Pulse Rate : 70/min Respiratory Rate : 16/min Heart Rhythm : Regular Systolic Blood Pressure : 122mmHg Diastolic Blood Pressure : 70mmHg NIBP Mean : 87mmHg BP Location : Right upper extremity Blood Pressure Cuff Size : Regular SpO2 : 98% VITALIY DARNELL LPN - 04/29/2012 14:02 CDT Height : 161.0cm(Converted to: 5ft 3inch(es), 63.39inch(es)) Actual Weight : 87.0kg(Converted to: 191lb 13oz) Weight Source : Standing scale Dosing Weight Clinic : 87.00kg Clinic BSA : 1.97 Body Mass Index : 33.56kg/m2 VITALIY DARNELL LPN - 04/29/2012 13:57 CDT General Info Information Given By : Patient Languages : Swedish VITALIY DARNELL LPN - 04/29/2012 13:57 CDT Subjective Pain Symptoms : No VITALIY DARNELL LPN - 04/29/2012 13:57 CDT Dependent Habits Tobacco Use/Currently Using : No Tobacco Use/Last 12 months : No Tobacco Use/Advised to Quit : No Exposure to Tobacco Smoke : Care provider denies smoking in home Smoking Status : Never smoker Alcohol Use : No VITALIY DARNELL LPN - 04/29/2012 13:57 CDT Caffeine Use Grid Caffeine Use : Current Type : Tea Frequency : Occasionally VITALIY DARNELL LPN - 04/29/2012 13:57 CDT Recreational Drug Use Grid Drug Use : None VITALIY DARNELL LPN - 04/29/2012 13:57 CDT Allergy Allergies (Active) azithromycin Estimated Onset Date: Unspecified ; Created By: PETRA RUSSELL LPN; Reaction Status: Active ; Category: Drug ; Substance: azithromycin ; Type: Allergy ; Updated By: PETRA RUSSELL LPN; Reviewed Date: 03/09/2012 13:21 SHIRT FOLDER Benicar Estimated Onset Date: Unspecified ; Created By: PETRA RUSSELL LPN; Reaction Status: Active ; Category: Drug ; Substance: Benicar ; Type: Allergy ; Updated By: PETRA RUSSELL LPN; Reviewed Date: 03/09/2012 13:21 SHIRT FOLDER Source: [facility] POWERCHART Document Id: [id number] documented in this encounter Plan of Treatment Not on filedocumented as of this encounter Visit Diagnoses Not on filedocumented in this encounter
--- OUTSIDE RECORDS SUMMARY | 2021-09-05 08:03 | XMS_ITS | Encounter Summary ---
:1945 Author Organization [facility] Address [address] [place] [address] Care Team Providers Name Role Phone Unavailable Primary Care Provider Unavailable Encounter Details Date Type Department Care Team Description 09/26/2010 Hospital Encounter [facility] Nicki Finley, MAL, C.N.P., D. N.P. [address] [place] [address] (Wo rk) Social History Tobacco [...]
--- OUTSIDE RECORDS SUMMARY | 2021-09-05 08:03 | XMS_ITS | Encounter Summary ---
:1945 Author Organization [facility] Address [address] [place] [address] Care Team Providers Name Role Phone Unavailable Primary Care Provider Unavailable Encounter Details Date Type Department Care Team Description 05/09/2011 Hospital Encounter HX NO MAPPING Social History Tobacco Use Types Packs/Day Years [...]
--- OUTSIDE RECORDS SUMMARY | 2021-09-05 08:03 | XMS_ITS | Encounter Summary ---
:1945 Author Organization [facility] Address [address] [place] [address] Care Team Providers Name Role Phone Unavailable Primary Care Provider Unavailable Encounter Details Date Type Department Care Team Description 07/25/2010 Hospital Encounter HX [facility] Nicki Holt, MAL, C.N.P., D.N.P. [address] [place], [place] [address] (Wo rk) Social History [...] encounter Miscellaneous Notes Miscellaneous - Nicki Holt, Maritza.N.P., C.N.P. - 07/29/2010 9:47 AM CDT Results Notification Document Contains Addenda Addendum by VITALIY VILLEDA LPN on 29 July 2010 12:06:57 CDT Letter sent. From: NICKI HOLT DNP, OTR OWNER OPERATOR To: VITALIY VILLEDA LPN Sent: 07/29/2010 09:47:31 CDT ! Show up: 07/29/2010 09:47:00 CDT Subject: Results Notification Actions: Notify patient of results Due Date/Time: 07/29/2010 09:47:00 CDT Source: [facility] POWERCHART Document Id: [id number] Electronically signed by Conversion, [facility] Survey Project Manager [id number] at 07/20/2016 10:23 PM CDT documented in this encounter Plan of Treatment Not on filedocumented as of this encounter Visit Diagnoses Not on filedocumented in this encounter
--- OUTSIDE RECORDS SUMMARY | 2021-09-05 08:03 | XMS_ITS | Encounter Summary ---
:1945 Author Organization [facility] Address [address] [place] [address] Care Team Providers Name Role Phone Unavailable Primary Care Provider Unavailable Encounter Details Date Type Department Care Team Description 01/15/2011 Hospital Encounter [facility]X [facility] Nicki Anthony, MAL, C.N.P., D.N.P. [address] [place], [place] [phone] (Wo rk) Social History [...]
--- OUTSIDE RECORDS SUMMARY | 2021-09-05 08:03 | XMS_ITS | Encounter Summary ---
:1945 Author Organization [facility] Address [address] [place] [address] Care Team Providers Name Role Phone Unavailable Primary Care Provider Unavailable Encounter Details Date Type Department Care Team Description 03/09/2012 Hospital Encounter HX [facility] Nicki Holt, MAL, C.N.P., D. N.P. [address] [place] [address] (Wo rk) Social History Tobacco [...] Sign Reading Time Taken Comments Blood Pressure 130/60 03/09/2012 1:31 PM TOP TRIMMER Pulse 77 03/09/2012 1:31 PM TOP TRIMMER Temperature - - Respiratory Rate 18 03/09/2012 1:31 PM TOP TRIMMER Oxygen Saturation - - Inhaled Oxygen Concentration - - Weight 88.8 kg (195 lb 12.3 oz) 03/09/2012 1:31 PM TOP TRIMMER Height 161 cm (5' 3.39) 03/09/2012 1:31 PM TOP TRIMMER Body Mass Index 34.26 03/09/2012 1:31 PM TOP TRIMMER documented in this encounter Medications at Time of Discharge Medication Sig Dispensed Refills Start Date End Date ASPIRIN ORAL Take 81 mg by mouth daily. Take 0 with food for heart health. documented as of this encounter Progress Notes Nicki Holt D.N.P., C.N.P. - 03/09/2012 1:14 PM CST [id number] CHIEF COMPLAINT/REASON FOR VISIT Heart palpitations. HISTORY OF PRESENT ILLNESS Patient is a 66-year-old female who presents to clinic today with chief complaint of heart palpitations that have been present now for the past several months duration. She indicates that it sometimeseven wakes her up at night in which she feels very anxious. She indicates that she has not any shortness of breath or difficulty breathing and otherwise indicates that she is not having any other further concerns or issues at this time. PAST MEDICAL/SURGICAL HISTORY FAMILY HISTORY Reviewed. Please see chart. CURRENT MEDICATIONS ALLERGIES Reviewed. Please see chart. PHYSICAL EXAM OBJECTIVE: * Patient is alert/oriented x 3. HEAD: Normocephalic/atraumatic. PUPILS: GENE. OROPHARYNX: [place] and moist. TMs: Bilateral TMs are clear, bony landmarks noted and WNL. NARES: Patent, no erythema or drainage noted. NECK: No anterior/posterior lymphadenopathy noted. HEART: Regular S1, S2, no murmurs, rubs or gallops noted. LUNGS: Clear to auscultation, no prolonged expiratory phases, wheezing, rales or rhonchi noted. SKIN: Without unusual rashes or suspicious lesions LABORATORY DATA LABS: Sodium 39.8, potassium 4.0. Total cholesterol 208. Triglycerides 319. HDL 57. LDL 87 (diabetic labs were due), hemoglobin A1c 7.45%, TSH 6.99, microalbumin is presently pending. IMPRESSION/REPORT/PLAN 1. Hypothyroidism. 2. Palpitations. PLAN 1. Hypothyroidism: Presently at this time I did opt to start the patient on Levothyroxine 25 mcg to take 1 tablet by mouth daily. We will plan on rechecking her TSH in 6 weeks duration in which these findings were discussed at length with the patient. Patient states she understands this plan. She felt comfortable this treatment plan. 2. Palpitations: Presently at this time as she is not having any symptoms at this time I did go ahead and order a Holter monitor for the patient in which this has been ordered as of today's date. Wewill plan on contacting the patient with these results. Patient felt comfortable this treatment plan. Overall discussed the patient's further laboratory results with the patient in which she is to continue on her Simvastatin 10 mg by mouth at bedtime. Indicated that she does not have more adequate control of her blood sugars further treatment with medication would be required given her hemoglobin A1c results today. Patient indicated understanding this plan. She denied any further questions or co ncerns. Patient ambulated out of the clinic in no acute distress. Nicki Holt D.N.P./Elmer/rodrick Electronically Signed By: NICKI HOLT DNP, FNP On: 03/18/2012 08:45 AM Source: [facility] MHSDOLBEYNONRADSYS Document Id: [id number] TRIMMER documented in this encounter Nursing Notes Andrea Malhotra R.N. - 03/09/2012 2:16 PM CST 30 day event monitor 30 day event monitor was ordered for symptomatic palpitations lasting less than 3 minutes. Monitorwill be mailed to patient. Electronically Signed By: ANDREA MALHOTRA RN On: 03/09/2012 02:18 PM Source: [facility] POWERCHART Document Id: [id number] TRIMMER documented in this encounter Miscellaneous Notes Miscellaneous - Nicki Holt D.N.P., C.N.PJairo - 03/09/2012 5:07 PM TOP TRIMMER Ambulatory Patient Summary [id number] [place] [address] Visit Information Name: ARCHIE BAZAN [facility] Number: [id number] Current Date: 03/09/2012 17:07:55 Physicians Attending Provider: NICKI HOLT DNP, FNP [...] tablet) 25 mcg Oral once a day simvastatin (simvastatin 10 [...] as needed for Anxiety Take for anxiety. amlodipine (Norvasc 2.5 mg oral tablet) 2.5 mg Oral once a day Take for high blood pressure. glipiZIDE (glipiZIDE 5 mg oral tablet) 10 mg Oral once a day 30 minutes before breakfast for high blood sugars. clobetasol topical (clobetasol topical 0.05% solution) 1 [...] Calculus Active 04/28/2011 Hypothyroidism NOS Active 03/09/2012 Your Upcoming Appointments Date Time Location Reason Provider No Appointments found Your Goals/Additional instructions: Source: [facility] POWERCHART Document Id: [id number] TRIMMER Miscellaneous - Nicki Holt D.N.P., C.N.P. - 03/09/2012 5:07 PM TOP TRIMMER Ambulatory Depart Summary [address] [place] [address] Visit Information Name: ARCHIE BAZAN [facility] Number: [id number] Visit Date: 03/09/2012 17:07:54 Attending Provider: NICKI HOLT DNP, FNP Primary [...] tablet) 25 mcg Oral once a day simvastatin (simvastatin 10 [...] as needed for Anxiety Take for anxiety. amlodipine (Norvasc 2.5 mg oral tablet) 2.5 mg Oral once a day Take for high blood pressure. glipiZIDE (glipiZIDE 5 mg oral tablet) 10 mg Oral once a day 30 minutes before breakfast for high blood sugars. clobetasol topical (clobetasol topical 0.05% solution) 1 shauna Topical two times a day as needed for Rash Attention: If you have any medications at home that are not on this list, DO NOT take them until youcontact your provider for clarification. Additional Information: Source: [facility] POWERCHART Document Id: [id number] TRIMMER Miscellaneous - Mel Batista L.P.N. - 03/09/2012 1:33 PM CST Health Assessment Health Assessment Entered On: 03/09/2012 13:33 TOP TRIMMER Performed On: 03/09/2012 13:33 TOP TRIMMER by MEL BATISTA LPN Health Assessment Complete Health Assessment Complete or Modified : Annual Health Assessment Annual Health Assessment Completed : Yes MEL BATISTA LPN - 03/09/2012 13:33 TOP TRIMMER Nutrition Nutrition Risk Factors by History Adult : None MEL BATISTA LPN - 03/09/2012 13:33 TOP TRIMMER Functional Current Daily Living Assistance : None MEL BATISTA LPN - 03/09/2012 13:33 TOP TRIMMER Dependent Habits Tobacco Use/Currently Using : No Exposure to Tobacco Smoke : Care provider denies smoking in home Smoking Status : Never smoker MEL BATISTA LPN - 03/09/2012 13:33 TOP TRIMMER Caffeine Use Grid Caffeine Use : Current Type : Tea Frequency : Occasionally MEL BATISTA LPN - 03/09/2012 13:33 TOP TRIMMER Recreational Drug Use Grid Drug Use : None MEL BATISTA LPN - 03/09/2012 13:33 TOP TRIMMER Psychosocial Domestic Abuse Concerns : None MEL BATISTA LPN - 03/09/2012 13:33 TOP TRIMMER Advance Directive Advanced Directives : No MEL BATISTA LPN - 03/09/2012 13:33 TOP TRIMMER Educ Needs Learning Style Preference Adult Grid Patient : None Family : None MEL BATISTA LPN - 03/09/2012 13:33 TOP TRIMMER Source: [facility] POWERCHART Document Id: [id number] TRIMMER Miscellaneous - Mel Batista L.P.NJairo - 03/09/2012 1:31 PM CST Adult Student Services Coordinator Intake/History Adult Student Services Coordinator Intake/History Entered On: 03/09/2012 13:33 TOP TRIMMER Performed On: 03/09/2012 13:31 TOP TRIMMER by MEL BATISTA LPN Intake Temperature Core : 36C(Converted to: 96.8DegF) (LOW) Peripheral Pulse Rate : 77/min Respiratory Rate : 18/min Heart Rhythm : Regular Systolic Blood Pressure : 130mmHg Diastolic Blood Pressure : 60mmHg NIBP Mean : 83mmHg BP Location : Left upper extremity Blood Pressure Cuff Size : Regular SpO2 : 98% Oxygen Therapy : Room air Height : 161cm(Converted to: 5ft 3inch(es), 63.39inch(es)) Actual Weight : 88.8kg(Converted to: 195lb 12oz) Weight Source : Standing scale Dosing Weight Clinic : 88.80kg Clinic BSA : 1.99 Body Mass Index : 34.26kg/m2 MEL BATISTA LPN - 03/09/2012 13:31 TOP TRIMMER Subjective Pain Symptoms : No MEL BATISTA LPN - 03/09/2012 13:31 TOP TRIMMER Dependent Habits Tobacco Use/Currently Using : No Exposure to Tobacco Smoke : Care provider denies smoking in home Smoking Status : Never smoker Alcohol Use : No MEL BATISTA LPN - 03/09/2012 13:31 TOP TRIMMER Caffeine Use Grid Caffeine Use : Current Type : Tea Frequency : Occasionally MEL BATISTA LPN - 03/09/2012 13:31 TOP TRIMMER Recreational Drug Use Grid Drug Use : None MEL BATISTA LPN - 03/09/2012 13:31 TOP TRIMMER Allergy Allergies (Active) azithromycin Estimated Onset Date: Unspecified ; Created By: PETRA RUSSELL LPN; Reaction Status: Active ; Category: Drug ; Substance: azithromycin ; Type: Allergy ; Updated By: PETRA RUSSELL LPN; Reviewed Date: 03/09/2012 13:21 TOP TRIMMER Benicar Estimated Onset Date: Unspecified ; Created By: PETRA RUSSELL LPN; Reaction Status: Active ; Category: Drug ; Substance: Benicar ; Type: Allergy ; Updated By: PETRA RUSSELL LPN; Reviewed Date: 03/09/2012 13:21 TOP TRIMMER [facility] Document Id: [id number] TRIMMER documented in this encounter Plan of Treatment Not on filedocumented as of this encounter Visit Diagnoses Not on filedocumented in this encounter
--- OUTSIDE RECORDS SUMMARY | 2021-09-05 08:03 | XMS_ITS | Encounter Summary ---
:1945 Author Organization [facility] Address [address] [place] [address] Care Team Providers Name Role Phone Unavailable Primary Care Provider Unavailable Encounter Details Date Type Department Care Team Description 04/28/2011 Hospital Encounter HX NO MAPPING Provider, Historical [...]
--- OUTSIDE RECORDS SUMMARY | 2021-09-05 08:03 | XMS_ITS | Encounter Summary ---
:1945 Author Organization [facility] Address [address] [place] [address] Care Team Providers Name Role Phone Unavailable Primary Care Provider Unavailable Encounter Details Date Type Department Care Team Description 03/31/2011 Hospital Encounter HX [facility] Nicki Holt, MAL, C.N.P., D. N.P. [address] [place] [address] (Wo rk) Social History Tobacco [...] Reading Time Taken Comments Blood Pressure 126/62 03/31/2011 8:32 AM YOUTH PROBATION OFFICER Pulse 64 03/31/2011 8:32 AM YOUTH PROBATION OFFICER Temperature - - Respiratory Rate 18 03/31/2011 8:32 AM YOUTH PROBATION OFFICER Oxygen Saturation - - Inhaled Oxygen Concentration - - Weight 88.9 kg (195 lb 15.8 oz) 03/31/2011 8:32 AM YOUTH PROBATION OFFICER Height - - Body Mass Index - - documented in this encounter Progress Notes Nicki Holt, D.N.P., C.N.P. - 03/31/2011 12:00 AM CST [id number] CHIEF COMPLAINT/REASON FOR VISIT Sinus congestion. HISTORY OF PRESENT ILLNESS The patient is a 65-year-old female that presents to the clinic today with chief complaint of sinus congestion that has been present now for approximately a week and a half duration. She reports that in last three days her symptoms have worsened and she complains of right maxillary discomfort and thick nasal secretions. She also reports that she has been having some left ear pressure and pain. She reports that she has been taking some Mucinex and Sudafed [id number] as directed on package on an as needed basis to help with the symptoms with some minimal symptom improvement. She reports that she has also developed some redness and yellow-green mattery drainage of both eyes noting more mattery drainage of left side than the right eye. She reports that she has not had any changes in her vision or deep eye pain. She otherwise denies having any other further questions or concerns at this time. PAST MEDICAL/SURGICAL HISTORY Reviewed. Please see chart. FAMILY HISTORY Reviewed. Please see chart. CURRENT MEDICATIONS Reviewed. Please see chart. ALLERGIES Reviewed. Please see chart. PHYSICAL EXAMINATION OBJECTIVE: Patient is alert/oriented x 3. HEAD: Normocephalic/atraumatic. The patient complains of right side maxillary discomfort with palpation. PUPILS: The bilateral sclerae are injected with some crusty drainage to the left upper eyelashes on examination. Extraocular movements are all intact. OROPHARYNX: The posterior pharynx is noted to have post nasal secretions and postnasal drip of secretions noted that are thick, green in color. TMs: Bilateral TMs are clear, bony landmarks noted and WNL. NARES: Patent, no erythema or drainage noted. NECK: Bilateral anterior lymphadenopathy is noted on examination. HEART: Regular S1, S2, no murmurs, rubs or gallops noted. LUNGS: Clear to auscultation, no prolonged expiratory phases, wheezing, rales or rhonchi noted. SKIN: Without unusual rashes or suspicious lesions IMPRESSION/REPORT/PLAN 1. Sinusitis. 2. Bacterial conjunctivitis. PLAN: Discussed the findings at length with the patient. I did opt to start the patient on amoxicillin 500 mg tablets in which she can take two tablets by mouth twice a day for 10 days a number quantity sufficient with no refills. Patient was also started on Polytrim eye drops in which she can instill one drop in both eyes every 3 hours while awake for seven days number 5 ml with no refills authorized. Recommend she continue with the Mucinex and Sudafed as directed on package on an as needed basis in which I also encouraged humidified air and drinking plenty of fluids. Patient was given guaifenesin with codeine to take 10 ml by mouth every four hours at night only as need for cough and nasal congestion on an as needed basis. A quantity of 240 ml with no refills were authorized. Indicated if the symptoms worsen or continue, follow-up would be warranted. The patient stated she understands this plan. She otherwise denied having any other further questions or concerns. Patient ambulated out of the clinic in no acute distress. PATIENT EDUCATION: Ready to learn No apparent learning barriers were identified Learning preferences include listening Explained diagnosis and treatment plan Patient/Child/Caregiver expressed understanding of the content Nicki Holt D.N.P., F.N.P. /arnol Electronically Signed By: NICKI HOLT DNP, FNP On: 04/01/2011 03:01 PM Source: [facility] MHSDOLBEYNONRADSYS Document Id: [id number] H PROBATION OFFICER documented in this encounter Miscellaneous Notes Miscellaneous - Nicki Holt D.N.P., C.N.P. - 03/31/2011 8:47 AM YOUTH PROBATION OFFICER Ambulatory Patient Summary [address] [address] Visit Information Name: ARCHIE BAZAN Current Date: 03/31/2011 08:47:22 Primary Care Provider: NICKI HOLT DNP, FNP Your Medications Here is a list of your medications. It is important to take your medications as directed. Use a pillbox or chart to help remind you to take your medications. Please let your doctor or nurse know if you have problems taking your medications. Medication/Strength Dose Route Frequency Indications/Special Instructions/Comments metformin (metformin 1000 mg oral tablet, extended [...] 01/15/2012 Diabetes: Diabetes Education every 1 year 03/31/2011 Diabetes: Eye Exam every 1 year 07/22/2010 07/22/2011 Diabetes: Foot Exam every 1 year 01/16/2011 01/16/2012 Diabetes: Microalbumin/Urine Protein every 1 year 05/30/2010 05/30/2011 Diabetes and/or Vascular: LDL every 1 year 01/15/2011 01/15/2012 Health Assessment every 1 year 03/31/2011 03/30/2012 Screening Bone Density Once Women greater than age 64 03/31/2011 Checks for bone loss and osteoporosis. Screening Colonoscopy or Flex Sig or Occult Blood 01/03/2009 01/01/2019 Checks for signs of cancer of the colon. Screening Mammogram every 1 year Women 40-75 03/31/2011 X-rays of breast to check for breast [...] that year's flu season. Vaccine: Pneumococcal Once 03/31/2011 Immunization to help prevent you from getting 23 kinds of pneumococcal bacteria that can lead to pneumonia, bacteremia and meningitis. Vaccine: Tetanus every 10 years 02/14/2010 02/12/2020 Immunization to help prevent you from getting the serious disease Tetanus (Lockjaw). Your Upcoming Appointments Date Time Location Reason Provider No Appointments found Your Goals/Additional instructions: Source: [facility] POWERCHART Document Id: [id number] H PROBATION OFFICER Miscellaneous - Nicki Holt, D.N.P., C.N.P. - 03/31/2011 8:47 AM YOUTH PROBATION OFFICER Ambulatory Depart Summary [address] [address] Visit Information Name: ARCHIE BAZAN Current Date: 03/31/2011 08:47:21 Attending Provider: NICKI HOLT DNP, FNP Primary [...] medications. Medication/Strength Dose Route Frequency Indications/Special Instructions/Comments metformin (metformin 1000 mg oral tablet, extended [...] to the patient and/or family, guardian/caregiver. Source: [facility] POWERCHART Document Id: [id number] H PROBATION OFFICER Miscellaneous - Diana Cardoza L.P.N. - 03/31/2011 8:34 AM CST Health Assessment Health Assessment Entered On: 03/31/2011 8:34 YOUTH PROBATION OFFICER Performed On: 03/31/2011 8:34 YOUTH PROBATION OFFICER by DIANA CARDOZA LPN Health Assessment Complete Health Assessment Complete or Modified : Annual Health Assessment Annual Health Assessment Completed : Yes DIANA CARDOZA LPN - 03/31/2011 8:34 YOUTH PROBATION OFFICER Nutrition Nutrition Risk Factors by History Adult : None DIANA CARDOZA LPN - 03/31/2011 8:34 YOUTH PROBATION OFFICER Functional Current Daily Living Assistance : None DIANA CARDOZA LPN - 03/31/2011 8:34 YOUTH PROBATION OFFICER Dependent Habits Tobacco Use/Currently Using : No Tobacco Use/Last 12 months : No Tobacco Use/Advised to Quit : No Exposure to Tobacco Smoke : Care provider denies smoking in home Smoking Status : Never smoker DIANA CARDOZA LPN - 03/31/2011 8:34 YOUTH PROBATION OFFICER Caffeine Use Grid Caffeine Use : Current Type : Tea Frequency : Occasionally DIANA CARDOZA LPN - 03/31/2011 8:34 YOUTH PROBATION OFFICER Recreational Drug Use Grid Drug Use : None DIANA CARDOZA LPN - 03/31/2011 8:34 YOUTH PROBATION OFFICER Psychosocial Domestic Abuse Concerns : None DIANA CARDOZA LPN - 03/31/2011 8:34 YOUTH PROBATION OFFICER Advance Directive Advanced Directives : No DIANA CARDOZA LPN - 03/31/2011 8:34 YOUTH PROBATION OFFICER Educ Needs Learning Style Preference Adult Grid Patient : None Family : None DIANA CARDOZA LPN - 03/31/2011 8:34 YOUTH PROBATION OFFICER Source: [facility] POWERCHART Document Id: [id number] YOUTH PROBATION OFFICER!30 H PROBATION OFFICER Miscellaneous - Diana Cardoza L.P.N. - 03/31/2011 8:32 AM CST Adult Filling Operator Intake/History Adult Filling Operator Intake/History Entered On: 03/31/2011 8:34 YOUTH PROBATION OFFICER Performed On: 03/31/2011 8:32 YOUTH PROBATION OFFICER by DIANA CARDOZA LPN Intake Chief Complaint : ? sinus cough ST facial pressure Temperature Core : 36.4C(Converted to: 97.5DegF) (LOW) Peripheral Pulse Rate : 64/min Respiratory Rate : 18/min Heart Rhythm : Regular Systolic Blood Pressure : 126mmHg Diastolic Blood Pressure : 62mmHg NIBP Mean : 83mmHg BP Location : Right upper extremity Blood Pressure Cuff Size : Regular Actual Weight : 88.9kg(Converted to: 196lb 0oz) Weight Source : Standing scale Dosing Weight Clinic : 88.90kg DIANA CARDOZA [facility] - 03/31/2011 8:32 YOUTH PROBATION OFFICER Subjective Pain Symptoms : Yes DIANA CARDOZA LPN - 03/31/2011 8:32 YOUTH PROBATION OFFICER Pain Pain Assessment Grid Pain 1 Location : Throat DIANA CARDOZA LPN - 03/31/2011 8:32 YOUTH PROBATION OFFICER Dependent Habits Tobacco Use/Currently Using : No Tobacco Use/Last 12 months : No Tobacco Use/Advised to Quit : No Exposure to Tobacco Smoke : Care provider denies smoking in home Smoking Status : Never smoker DIANA CARDOZA LPN - 03/31/2011 8:32 YOUTH PROBATION OFFICER Caffeine Use Grid Caffeine Use : Current Type : Tea Frequency : Occasionally DIANA CARDOZA [facility] - 03/31/2011 8:32 YOUTH PROBATION OFFICER Recreational Drug Use Grid Drug Use : None DIANA CARDOZA LPN - 03/31/2011 8:32 YOUTH PROBATION OFFICER Allergy Allergies (Active) azithromycin Estimated Onset Date: Unspecified ; Created By: PETRA RUSSELL LPN; Reaction Status: Active ; Category: Drug ; Substance: azithromycin ; Type: Allergy ; Updated By: PETRA RUSSELL LPN; Reviewed Date: 01/16/2011 9:05 YOUTH PROBATION OFFICER Benicar Estimated Onset Date: Unspecified ; Created By: PETRA RUSSELL LPN; Reaction Status: Active ; Category: Drug ; Substance: Benicar ; Type: Allergy ; Updated By: PETRA RUSSELL LPN; Reviewed Date: 01/16/2011 9:05 YOUTH PROBATION OFFICER Source: [facility] Audibase Document Id: [id number] YOUTH PROBATION OFFICER!35 H PROBATION OFFICER documented in this encounter Plan of Treatment Not on filedocumented as of this encounter Visit Diagnoses Not on filedocumented in this encounter
--- OUTSIDE RECORDS SUMMARY | 2021-09-05 08:03 | XMS_ITS | Encounter Summary ---
:1945 Author Organization [facility] Address [address] [place] [address] Care Team Providers Name Role Phone Unavailable Primary Care Provider Unavailable Encounter Details Date Type Department Care Team Description 09/26/2010 Hospital Encounter HX [facility] Nicki Anthony, MAL, C.N.P., D. N.P. [address] [place] [address] (Wo rk) Social History Tobacco [...]
--- OUTSIDE RECORDS SUMMARY | 2021-09-05 08:03 | XMS_ITS | Encounter Summary ---
:1945 Author Organization [facility] Address [address] [place] [address] Care Team Providers Name Role Phone Unavailable Primary Care Provider Unavailable Encounter Details Date Type Department Care Team Description 06/27/2010 Hospital Encounter HX [facility] INTERNMED Provider, Lázaro lion Social History Tobacco Use Types Packs/Day Years [...] Miscellaneous - Conversion, Historical Provider Ser - 06/27/2010 12:00 AM CDT [id number] Marcial Adams [address] [place] [phone] [place] June 27, 2010 Dear Marcial Adams Our records indicate that you are approaching an important milestone in your life, your 65th Birthday. With that birthday, you also will be eligible to receive Medicare benefits. One of the benefits you can receive through Medicare is called Medicare Part B. This is a one-time opportunity for you to undergo a complete physical exam and receive preventive health service. Think of it as a Welcome to Medicare exam. We want to encourage you to take advantage of this benefit. At [facility] we value and encourage preventive care and health education. It is simple to schedule your appointment. Call [phone] (toll-free: ), let the cut out machine operator know that you would like to schedule a Medicare Part B appointment. The appointment will be with Lana Schaeffer PA-C, in Specialty Medical Services and your primary care provider will be notifiedof the results. To provide you with the best possible care, we ask that you bring with you any medical records you have, your family health history and all medication you are taking. The exam begins with a meeting with a nurse who will review your background, medical history, health education needs and other critical information. This will be followed by an exam by a physician fitter's assistant who will conduct a thorough health screening and make any recommendations for follow up care. Please be sure to allocate sufficient time for the appointment. It will last approximately 1.5 hours. There is a cost for the screening. Your Part B benefit will cover 80% of the cost, and you need not have met your deductible requirement for the visit with the physician and the abdominal aortic aneurysm screenings. However, your deductible and/or copay requirements may applpy to other screenings your physician recommends. If you have questions on the cost, please contact the Patient Financial Services Department and they will help you understand what the cost to you could be. In addition the exam can be done only after you have enrolled in Medicare and within 12 months of receiving the Part B benefits. The details of this important benefit may seem confusing. We'll help you understand it and take advantage of the exam it offers. What isn't confusing is the reason it is offered, to help you maintain your health. At [facility], we are committed to being you partner for a healthy future. Please call us when you are ready to schedule your appointment. Sincerely, Lana Schaeffer PA-C INTERNAL MEDICINE Source: [facility] RWHXTRANSXRTFSYS Document Id: [id number] documented in this encounter Plan of Treatment Not on filedocumented as of this encounter Visit Diagnoses Not on filedocumented in this encounter
--- OUTSIDE RECORDS SUMMARY | 2021-09-05 08:03 | XMS_ITS | Encounter Summary ---
:1945 Author Organization [facility] Address [address] [place] [address] Care Team Providers Name Role Phone Unavailable Primary Care Provider Unavailable Encounter Details Date Type Department Care Team Description 10/16/2010 Hospital Encounter HX [facility] Nicki Holt, MAL, C.N.P., D.N.P. [address] [place], [place] [phone] (Wo rk) Social History [...] Miscellaneous - Nicki Holt, Maritza.N.P., C.N.P. - 10/17/2010 4:22 PM CDT Results Notification From: NICKI HOLT DNP, OUTBOUND SALES ADVISOR To: RAMONITA GUILLERMO LPN Sent: 10/17/2010 16:22:43 CDT ! Show up: 10/17/2010 16:10:00 CDT Subject: Results Notification Actions: Notify patient of results Due Date/Time: 10/17/2010 16:10:00 CDT Source: [facility] POWERCHART Document Id: [id number] Electronically signed by Conversion, [facility] Psychiatric Registered Nurse [id number] at 07/20/2016 11:40 PM CDT documented in this encounter Plan of Treatment Not on filedocumented as of this encounter Visit Diagnoses Not on filedocumented in this encounter
--- OUTSIDE RECORDS SUMMARY | 2021-09-05 08:03 | XMS_ITS | Encounter Summary ---
:1945 Author Organization [facility] Address [address] [place] [address] Care Team Providers Name Role Phone Unavailable Primary Care Provider Unavailable Encounter Details Date Type Department Care Team Description 01/15/2011 Hospital Encounter HX [facility] Asha Ramon, MAL, C.N.P., D. N.P. [address] [place], [place] [phone] (Wo rk) Social History [...]
--- OUTSIDE RECORDS SUMMARY | 2021-09-05 08:03 | XMS_ITS | Encounter Summary ---
:1945 Author Organization [facility] Address [address] [place] [address] Care Team Providers Name Role Phone Unavailable Primary Care Provider Unavailable Encounter Details Date Type Department Care Team Description 05/20/2011 Hospital Encounter HX [facility] Tona Colon M.D. Social History Tobacco Use [...] documented as of this encounter Progress Notes Tona Colon M.D. - 05/20/2011 2:00 PM CDT [id number] MS. Adams was sent by Singh Pearl NP From [place] for a consult to evaluate incontinence. HPI: She is a 65 year old Obstetric History T0 TAB0 SAB1 E0 M0 L2 with No LMP recorded. Patient is postmenopausal. She has been having trouble with leaking urine and her bladder dropping. 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 HPI: she has trouble with leaking urine with cough or sneeze. She has trouble making it to the bathroom and will leak on the way some times. She has nocturia x 1. She had trouble with her bladder hurting when she is sitting down but that is gone now that the kidney stone is gone. The problem tendsto go in streaks and at times she has no trouble. She will wear a pad occ but not daily. She had been on HRT many yrs ago but not recently. She has about 1c caff a day, no ETOH, and occ acid fruit or juice ROS: (normal except as noted above) REVIEW OF SYSTEMS: NEUROLOGIC: Negative EYES: Negative ENT: Negative GI: Negative BREAST: Negative RETAIL LEADER: Negative CV: Negative PULMONARY: Negative MUSCULOSKELETAL: Negative PSYCH: Negative Past Medical History Diagnosis Date Umbilical hernia without mention of obstruction or gangrene Postmenopausal bleeding Other osteoporosis Past Surgical History Procedure Date C full rout obste care, deliv C appendectomy Hc repair incisional hernia,reducible 06/14/98 Incisional hernia repair w mesh C lap,hernia repair proc,unlist 03/22/01 Hc colonoscopy w biopsy 07/06/02 Current outpatient prescriptions Medication Sig glipiZIDE (GLUCOTROL) 5 MG tablet Take 5 mg by mouth 2 times daily (before meals). amLODIPine (NORVASC) 2.5 MG tablet Take 2.5 mg by mouth daily. aspirin EC 81 MG tablet Take 81 mg by mouth daily. estradiol (ESTRACE VAGINAL) 0.1 MG/GM vaginal cream Place 1 g vaginally twice a week. METFORMIN HCL 500 MG OR TABS 1 TABLET TWICE DAILY WITH FOOD SIMVASTATIN 40 MG OR TABS 1 TABLET EVERY EVENING MULTIVITAMIN TABS OR 1 tab prn Allergies: No known allergies Family History Problem Relation Age of Onset Cancer Mother breast Diabetes Daughter Diabetes Brother x1 Diabetes Paternal Uncle x2 Eye Maternal Grandmother cataract Hypertension No family hx of Muscular Other mothers side- tic of some sort- twitches History Social History Marital Status: Spouse Name: N/A Number of Children: N/A Years of Education: N/A Occupational History Not on file. Social History Main Topics Smoking status: Never Smoker Smokeless tobacco: Never Used Alcohol Use: No Drug Use: No Sexually Active: Yes -- Male partner(s) Other Topics Concern Not on file Social History Narrative No narrative on file Old records reviewed and summarized above. Vitals as above. Constitiutional: woman in NAD Back: no spinal or CVAT Abd: Soft, non tender without masses, rebound or guarding Skin: normal pigmentation, no lesions, or cycanosis Neruo/Psych: Oriented, with normal affect and appropriate mood Orchid Hand Exam: Lymph: no enlarged groin nodes External genitlaia: atrophic and she did leak urine with cough Perineum: normal skin, no lesions, good support Urethra meatus: normal , no lesion or caruncle Urethra: normal, nontender, moderate cystocele, poor pelvic muscle tone Bladder: nontender, no masses, not enlarged Vagina:no discharge and atrophic Cervix:primiparous Uterus: smooth, firm, mobile, without irregularities Adnexa: not palpable RV: not indicated Rectum: no sig hemorrhoids, no bleeding Assessment: cystocele and mild Stress Urinary Incontinence Plan: we discussed treatment options. Will try vag ERT and pelvic floor PT. Copy of this note sent to Singh Olivas NP for review. Source: [facility] RWHXTRANSXRTFSYS Document Id: [id number] documented in this encounter Plan of Treatment Not on filedocumented as of this encounter Visit Diagnoses Not on filedocumented in this encounter
--- OUTSIDE RECORDS SUMMARY | 2021-09-05 08:03 | XMS_ITS | Encounter Summary ---
:1945 Author Organization [facility] Address [address] [place] [address] Care Team Providers Name Role Phone Unavailable Primary Care Provider Unavailable Encounter Details Date Type Department Care Team Description 04/15/2012 Hospital Encounter HX [facility] Nicki Anthony, MAL, C.N.P., D. N.P. [address] [place] [phone] (Wo rk) Social History Tobacco [...] by mouth daily. Take 0 with food [facility]. documented as of this encounter Progress Notes Conversion, Historical Provider Ser - 04/15/2012 8:44 AM CST [id number] [facility] WELLNESS COACHING Followup visit: The patient was successful in bringing in a healthy meal plan. She came up with some other recipe ideas as well. She is interested in doing a quiche and some other healthy proteins. She did some grocery shopping at the local coop and also got some suggestions and ideas from the staff there as well. She was somewhat successful in her goal for walking 5 to 10 minutes. She walked inside the house on days that it was slippery outside or she felt like she could go to the other facility where she walks on the treadmill. She estimated she walked about 3/4 mile on the treadmill when she did walk 3 to4 days and was successful in doing some kind of physical activity with movement in her goal #2. We discussed a couple other things throughout her visit today and established new goals. Action goal: 1. Make more healthy meal options by Thursday for the week and then discuss what worked and what did not work. Also what she liked and did not like. So, again, we are just really trying to breakdown the goal and make sure that works in her lifestyle the best way that it can. 2. Go to the [employer] shop to do her treadmill or walk indoors again. For the treadmill, her goal is to do one mile 3 times a week and if she cannot do that to walk 15 minutes every day indoors or outdoors if the weather permits. She is currently in action stage and is very motivated. Annie Almonte DOCID: [id number] Electronically Signed By: SE ABEBA GALAN INBOX LEA02 On: 07/05/2014 02:04 PM Source: [facility] PRESTONSDOLMOMO Document Id: [id number] Addendum by SE ABEBA GALAN INCRAIG LEA02 on 05 Jul 2014 14:04 CDT [facility] administratively closed. Provider on longer with facility. Report filed unsigned. Modified by and Electronically Signed by: SE ABEBA GALAN INBOX LEA02 On: 07/05/2014 02:04 PM Source: [facility] POWERCHART Document Id: [id number] documented in this encounter Plan of Treatment Not on filedocumented as of this encounter Visit Diagnoses Not on filedocumented in this encounter
--- OUTSIDE RECORDS SUMMARY | 2021-09-05 08:03 | XMS_ITS | Encounter Summary ---
:1945 Author Organization [facility] Address [address] [place] [address] Care Team Providers Name Role Phone Unavailable Primary Care Provider Unavailable Encounter Details Date Type Department Care Team Description 04/22/2012 Hospital Encounter HX [facility] Nicki Anthony, MAL, C.N.P., D. N.P. [address] [place] [phone] (Wo rk) Social History Tobacco [...] by mouth daily. Take 0 with food [facility]. documented as of this encounter Progress Notes Conversion, Historical Provider Ser - 04/22/2012 3:30 PM CST [id number] HEALTH & WELLNESS COACHING REFERRING PHYSICIAN: Nicki Anthony, D.N.P./F.N.P. The patient was 100% successful for both of her goals, goal #1 of making healthy meal options and substitutions. Also 100% successful in achieving her walking and moving every day and also three timesa week on the treadmill in the [employer] shop. Today we discussed some other obstacles that came along the way. She said that she has a bowl of candy that is out. She also enjoys desserts when she meetswith her group of lady friends and prefers carbs and sweets. A possible idea that we had come up with was to move the candy bowl that she has for visitors and her children to Alex's office so it is out of sight for her and still available for other people and guests and then also to have a diet icedtea instead of a dessert or candy when she has the need for sugar. She also came up with an idea ofa half of an apple with 1-2 tablespoons of peanut butter as a snack if she feels again like she would like something sweet after a meal. She feels that sometimes she is curious of whether her blood pressure may be getting too low. I did speak with Nicki in regard to this and let her know about the patient's concern. We also looked at when she is in social settings what possible strategies she coulduse other than having sweets. 1. She identified to have a smaller portion of whatever it was. 2. She could opt for coffee instead. 3. Bring a health option to share rather than indulging in something that isn't as good for her. She also reports that she made a chicken chilli and then froze leftovers for later. She also tried out the Estonian yogurt and also the Yoplait Estonian yogurt. She also experimented with avocado with a little bit of salt and pepper on a bagel. Her blood sugar is normal and her weight is current. No loss this week. Her goal for the next week would be to lose 1-2 pounds a week and ongoing. She will bedoing this through: Goal #1 which is smaller portion size for the next week when eating her meals. Goal #2 to exercise a little bit more which would look like one mile daily around that amount to start with an increase of speed every few minutes, then dropping back down in her speed. Currently she walks about 2.5 mph and she was thinking of upping it periodically as she walks on her treadmill and to do that again walking every day each week. Goal #3 to create a healthy diabetic friendly dessert that she could share with her lady friends when she goes to their event. The current stage of change is action. We will see the patient in a week's time. Annie Jeter DOCID: [id number] cc: Nicki Anthony D.N.P./Elmer Electronically Signed By: SE ABEBA GALAN, INBOX LEA02 On: 07/05/2014 01:48 PM Source: [facility] PRESTONSDOL[facility]YNPERRY Document Id: [id number] Addendum by SE ABEBA GALAN, INBOX LEA02 on 05 Jul 2014 13:49 CDT [facility] administratively closed. Provider on longer with facility. Report filed unsigned. Modified by and Electronically Signed by: SE ABEBA GALAN, INBOX LEA02 On: 07/05/2014 01:49 PM Source: [facility] POWERCHART Document Id: [id number] documented in this encounter Plan of Treatment Not on filedocumented as of this encounter Visit Diagnoses Not on filedocumented in this encounter
--- OUTSIDE RECORDS SUMMARY | 2021-09-05 08:04 | XMS_ITS | Encounter Summary ---
:1945 Author Organization [facility] Address [address] [place] [address] Care Team Providers Name Role Phone Unavailable Primary Care Provider Unavailable Encounter Details Date Type Department Care Team Description 03/22/2001 - Hospital Encounter HX NO MAPPING Miguelina Bianchi, 03/23/2001 D[address] [place], [place] [address] (Wo rk) Social History [...]
--- OUTSIDE RECORDS SUMMARY | 2021-09-05 08:04 | XMS_ITS | Encounter Summary ---
:1945 Author Organization [facility] Address [address] [place] [address] Care Team Providers Name Role Phone Unavailable Primary Care Provider Unavailable Encounter Details Date Type Department Care Team Description 04/22/2001 Hospital Encounter HX [facility] Dian Bianchi, [place] [address] [place], [place] [address] (Wo rk) Social History [...] Progress Notes Conversion, Historical Provider Ser - 04/22/2001 10:00 AM CST [id number] Addended by: PAWEL SCHMITT on: 04/23/2001,3:12 PM Comment: transcriptionModules accepted: Prog ress NotesThis office note has been dictated.Marcial is 4 weeks status post laparoscopic hernia re pair with mesh for recurrent incisional hernia. She feels well, she is having really minimal pain bu t complains of feeling tired and rundown.PHYSICAL EXAM: Her abdomen is soft, nontender, nondistende d. Her surgical wounds are well healed. They look excellent. No evidence of any sort of recurrence of the hernia. The patient was told she could return to work on May 27 for 8 hours a day, 5 days a week. She was told she could stand, sit, and walk for 6-8 hours, no kneeling or crouching. She ca n occassionally lift 10 lb or less and change work position for comfort. She can operate foot pedals , she can do simple grasping, fine manipulation, and firm grasping. She can occassionally bend and s toop, and frequently reach above shoulder level but not twist. She will f/u with me again in 2 weeks ' time, at which time if all is going well, she will be able to return to work without any sort of re striction. Miguelina Bianchi D.O./plsD: 04/22/2001T: 04/23/2001 Source: [facility] RWHXTRANSXSYS Document Id: [id number] documented in this encounter Plan of Treatment Not on filedocumented as of this encounter Visit Diagnoses Not on filedocumented in this encounter
--- OUTSIDE RECORDS SUMMARY | 2021-09-05 08:04 | XMS_ITS | Encounter Summary ---
:1945 Author Organization [facility] Address [address] [place] [address] Care Team Providers Name Role Phone Unavailable Primary Care Provider Unavailable Encounter Details Date Type Department Care Team Description 02/07/2008 Hospital Encounter HX [facility] INPT/OBSRV Jermaine Yost P.A.-C. [address] [place] [phone] (Wo rk) Social History Tobacco [...]
--- OUTSIDE RECORDS SUMMARY | 2021-09-05 08:04 | XMS_ITS | Encounter Summary ---
:1945 Author Organization [facility] Address [address] [place] [address] Care Team Providers Name Role Phone Unavailable Primary Care Provider Unavailable Encounter Details Date Type Department Care Team Description 02/23/2009 Hospital Encounter [facility]X [facility] INTERNMED Steve Noel M.D. [address] [place] [phone] (Wo rk) Social History Tobacco Use Types [...] documented as of this encounter Progress Notes Pradeep Noel M.D. 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 However in the last year or so she has noticed worsening of stool where she will usually have at least 3 soft to watery bowel movements in the morning and usually a few at work often right around 1 p.m. She usually eats lunch around 11:30. This is not associated with any abdominal cramping.She doesnt see any blood although she can occasionally have black stool. This is fairly rare. She denies any nausea or vomiting, her appetite has been good, no weight loss. No dysphagia or heartburn. No nausea or vomiting. The patient had been started on metformin around the time that she noticedworsening in her bowel movements and she does wonder if this could be associated. She has tried several different variations in her diet including avoiding fruit and dairy, but hasnt noticed much of adifference. She does notice that it is worse if she eats certain types of chocolate and it is certai nly worse if she is nervous. She has not really tried anything for it. PCN/WDF/mp Past Medical History Diagnosis Date UMBILICAL HERNIA POSTMENOPAUSAL BLEEDING OSTEOPOROSIS NEC Allergies Allergen Reactions No Known Allergies Current outpatient prescriptions Medication Sig METFORMIN HCL 500 MG OR TABS 1 TABLET TWICE DAILY WITH FOOD SIMVASTATIN 40 MG OR TABS 1 TABLET EVERY EVENING MULTIVITAMIN TABS OR 1 tab prn History Substance Use Topics Tobacco Use: Never Alcohol Use: No Family History: No colon cancer or inflammatory bowel disease. Other Social History: . Working. REVIEW OF SYSTEMS: Gen: No fevers, chills or weight loss; appetite good Eyes: No eye sores ENT: No mouth sores GI: See HPI Skin: No rash MS: No arthralgias Endo: sugars running between 120-140. EXAM Gen: Very pleasant female in NAD Vitals: Blood pressure 148/80, pulse 76, temperature 97.6 ??F (36.4 ??C), temperature source Temporal, resp. rate 18, height 5' 2.5 (1.588 m), weight 190 lb 14.4 oz (86.592 kg). Eyes: No icterus ENT: Oropharynx clear Respiratory: Clear to auscultation bilaterally CV: RRR without murmur Abd: Normal bowel sounds. Soft, non-tender, non-distended. No hepatosplenomegaly. No masses. Extrem: No edema Skin: No jaundice, spiders or rashes. Neuro: Alert and oriented x 3 Labs: Not available Imaging: Reviewed colonoscopy including path--normal. ASSESSMENT/PLAN: This is a 63-year-old female who very likely has chronic irritable bowel with a tendency toward diarrhea. This has been mild and sounds like it has been present for years. It is likely worse because of her metformin which can frequently cause looser stools. Fortunately she has not had any nausea or abdominal bloating with this. The patient can certainly try loperamide at 2 milligrams a day as needed. I would take this once a day to every other day, as this may help her with the urgency of her stools which seems to be the most dramatic problem. Fortunately she has not had any incontinence episodes. I did tell her that she should consider checking back with Dr. Vazquez about her metformin. I dont know if glipizide or glyburide or another antidiabetic medication would be more reasonable. She is on a fairly low dose of metformin at this point as we have recorded 500 milligrams twice daily. The patient should also make sure that her hemoglobin has been normal. If this is abnormal, then we may need to consider an upper scope, she has already had her colonoscopy. The patient will try these steps and I did give her some information on metformin as she requested this. Patient will follow up with Dr. Vazquez and is welcome to follow up with me at any time. Thank you very much for allowing me to see this very pleasant patient. PCN/WDF/mp CC: Dr. Vazquez in [place] and Dr. Robledo. Source: [facility] Document Id: [id number] Electronically signed by Conversion, [facility] Hall Monitor [id number] at 07/20/2016 7:24 AM CDT documented in this encounter Plan of Treatment Not on filedocumented as of this encounter Visit Diagnoses Not on filedocumented in this encounter
--- OUTSIDE RECORDS SUMMARY | 2021-09-05 08:04 | XMS_ITS | Encounter Summary ---
:1945 Author Organization [facility] Address [address] [place] [address] Care Team Providers Name Role Phone Unavailable Primary Care Provider Unavailable Encounter Details Date Type Department Care Team Description 04/05/2001 Hospital Encounter HX NO MAPPING Provider, Historical [...]
--- OUTSIDE RECORDS SUMMARY | 2021-09-05 08:04 | XMS_ITS | Encounter Summary ---
:1945 Author Organization [facility] Address [address] [place] [address] Care Team Providers Name Role Phone Unavailable Primary Care Provider Unavailable Encounter Details Date Type Department Care Team Description 08/17/2007 Hospital Encounter HX [facility] INPT/OBSRV Yady Vazquez M.D. [address] [place] [address] (Wo rk) Social History Tobacco Use Types [...]
--- OUTSIDE RECORDS SUMMARY | 2021-09-05 08:04 | XMS_ITS | Encounter Summary ---
:1945 Author Organization [facility] Address [address] [place] [address] Care Team Providers Name Role Phone Unavailable Primary Care Provider Unavailable Encounter Details Date Type Department Care Team Description 05/07/2001 Hospital Encounter [facility] SURGCL[facility] Marks, [place]an [address] [place], [place] [address] (Wo rk) Social History [...] Progress Notes Conversion, Historical Provider Ser - 05/07/2001 3:00 PM CST [id number] Marcial is here for her 4 week post-op check. She c/o of some mild pain in the LLQ, but is otherwise without complaint.On physical exam, Chest: CTA without rales, rhonchi or wheezingCV: RRR without S3, S4, or murmurABD: Soft without tenderness, guarding, mass or organomegaly. Bowel sounds are no rmal. No CVA tenderness or hernias noted. The incision is clean and dry without echymosis,edema or h ematoma. There is no evidence of reoccurence noted.A/P Doing well probably musculoskeletal pain. Pt instructed to try heat or cold packs and Motrin 2-400mg TID with meals. F/U in one month. Source: [facility] RWHXTRANSXSYS Document Id: [id number] documented in this encounter Plan of Treatment Not on filedocumented as of this encounter Visit Diagnoses Not on filedocumented in this encounter
--- OUTSIDE RECORDS SUMMARY | 2021-09-05 08:04 | XMS_ITS | Encounter Summary ---
:1945 Author Organization [facility] Address [address] [place] [address] Care Team Providers Name Role Phone Unavailable Primary Care Provider Unavailable Encounter Details Date Type Department Care Team Description 04/08/2001 Hospital Encounter [facility] SURGCLDian Marks, [place]an [address] [place], [place] [address] (Wo rk) Social History [...] Progress Notes Conversion, Historical Provider Ser - 04/08/2001 9:00 AM CST [id number] Marcial is here s/p laprascopic repair of recurrent incisional hernial. She c/o of some soreness dinorah g the incison sites, but is otherwise without complaint.On physical exam, Chest: CTA without rales , rhonchi or wheezing CV: RRR without S3, S4, or murmurAbdomen: bowel sounds present. Soft and no n-tender. No palpable masses or hepatosplenomegaly. The incisions are clean and dry without echymos is,edema or hematoma. Along the incision where the pt previously had the hernia, there is no evidenc e of recurrence.A/P S/P Lap repair of herniaF/U in 2 weeks and will discuss return to work at annabelle t time. Source: [facility] RWHXTRANSXSYS Document Id: [id number] documented in this encounter Plan of Treatment Not on filedocumented as of this encounter Visit Diagnoses Not on filedocumented in this encounter
--- OUTSIDE RECORDS SUMMARY | 2021-09-05 08:04 | XMS_ITS | Encounter Summary ---
:1945 Author Organization [facility] Address [address] [place] [address] Care Team Providers Name Role Phone Unavailable Primary Care Provider Unavailable Encounter Details Date Type Department Care Team Description 07/31/2009 Hospital Encounter HX [facility] INPT/OBSRV Nicki Anthony, MAL, C.N.P., D.N.P. [address] [place] [address] (Wo rk) Social History Tobacco [...]
--- OUTSIDE RECORDS SUMMARY | 2021-09-05 08:04 | XMS_ITS | Encounter Summary ---
:1945 Author Organization [facility] Address [address] [place] [address] Care Team Providers Name Role Phone Unavailable Primary Care Provider Unavailable Encounter Details Date Type Department Care Team Description 11/24/2001 Hospital Encounter HX NO MAPPING Provider, Historical [...]
--- OUTSIDE RECORDS SUMMARY | 2021-09-05 08:04 | XMS_ITS | Encounter Summary ---
:1945 Author Organization [facility] Address [address] [place] [address] Care Team Providers Name Role Phone Unavailable Primary Care Provider Unavailable Encounter Details Date Type Department Care Team Description 04/26/2007 Hospital En[facility] INPT/OBSRV Yday Vazquez M.D. [address] [place] [address] (Wo rk) Social History Tobacco Use Types [...]
--- OUTSIDE RECORDS SUMMARY | 2021-09-05 08:04 | XMS_ITS | Encounter Summary ---
:1945 Author Organization [facility] Address [address] [place] [address] Care Team Providers Name Role Phone Unavailable Primary Care Provider Unavailable Encounter Details Date Type Department Care Team Description 05/05/2007 Hospital Encounter [facility]BS[facility] Yady Vazquez M.D. [address] [place] [address] (Wo rk) Social History Tobacco Use Types [...]
--- OUTSIDE RECORDS SUMMARY | 2021-09-05 08:04 | XMS_ITS | Encounter Summary ---
:1945 Author Organization [facility] Address [address] [place] [address] Care Team Providers Name Role Phone Unavailable Primary Care Provider Unavailable Encounter Details Date Type Department Care Team Description 05/21/2001 Hospital Encounter [facility]X [facility] SURGCLDian Marks, Hernan [address] [place], [place] [address] (Wo rk) Social History [...] this encounter Miscellaneous Notes Telephone Encounter - Conversion, Historical Provider Ser - 05/21/2001 12:00 AM CST [id number] >> PAWEL SCHMITT Mon May 24, 2001 3:08 PM >> CALL RECEIVED. Contact: Ms. Adams is a patient that approximately 2 months ago I did a laparoscopic hernia repair for an inc isional hernia. We did the repair with mesh. the patient was doing well but recently noticed some increasing pain over the area where the hernia previously was. She says it is very tender even for her to touch it. She does not notice a bulge, there is no mass there. She cannot feel the hernia that she previously had. She is eating normally, is having normal bowel movements, has had no naus ea or vomiting. I explained to the patient at this time she may just be developing some hypersensit ivity of the cutaneous nerves during the healing process. I encouraged her to take Motrin 400 mg 3 times a day with food and to do that for 7 days. If it continues to bother her after that, she shou ld give my office a call and I will see her. If things get worse, she should give my office a call to come in and see me. Otherwise, f/u with me prn. Miguelina Bianchi D.O./kelly Source: [facility] RWHXTRANSXSYS Document Id: [id number] documented in this encounter Plan of Treatment Not on filedocumented as of this encounter Visit Diagnoses Not on filedocumented in this encounter
--- OUTSIDE RECORDS SUMMARY | 2021-09-05 08:04 | XMS_ITS | Encounter Summary ---
:1945 Author Organization [facility] Address [address] [place] [address] Care Team Providers Name Role Phone Unavailable Primary Care Provider Unavailable Encounter Details Date Type Department Care Team Description 12/20/2008 Hospital Encounter HX NO MAPPING Arias Robledo M.D. Social History Tobacco Use Types Packs/Day [...]
--- OUTSIDE RECORDS SUMMARY | 2021-09-05 08:04 | XMS_ITS | Encounter Summary ---
:1945 Author Organization [facility] Address [address] [place] [address] Care Team Providers Name Role Phone Unavailable Primary Care Provider Unavailable Encounter Details Date Type Department Care Team Description 04/17/2007 Hospital Encounter [facility] INPT/OBSRV Yady Vazquez M.D. [address] [place] [address] (Wo rk) Social History Tobacco Use Types [...]
--- OUTSIDE RECORDS SUMMARY | 2021-09-05 08:04 | XMS_ITS | Encounter Summary ---
:1945 Author Organization [facility] Address [address] [place] [address] Care Team Providers Name Role Phone Unavailable Primary Care Provider Unavailable Encounter Details Date Type Department Care Team Description 05/30/2010 Hospital Encounter HX [facility] Nicki Holt, MAL, C.N.P., D. N.P. [address] [place] [address] (Wo rk) Social History Tobacco [...] Progress Notes Nicki Holt, Maritza.N.P., C.N.P. - 05/30/2010 12:00 AM CDT [id number] CHIEF COMPLAINT/REASON FOR VISIT Follow-up lab results. HISTORY OF PRESENT ILLNESS The patient is a 64-year-old female who presents to clinic today to further discuss her laboratory results that were obtained on 05/25/2010. At that time, the patient's cholesterol was 244, triglycerides 177, HDL 59 and LDL 150. Patient's creatinine was 0.7. Hemoglobin A1c was 7.71. Patient comes in today to further discuss labs and possible medication treatment options. She otherwise denies having any other concerns or complaints at this time. PAST MEDICAL HISTORY/SURGICAL HISTORY SOCIAL HISTORY FAMILY HISTORY Past medical, surgical, family history reviewed. Please see chart. CURRENT MEDICATIONS ALLERGIES Reviewed. Please see chart. PHYSICAL EXAMINATION GENERAL: alert and oriented x 3. HEENT: head normocephalic, [...] any unusual rashes or suspicious lesions. LABORATORY: urine creatinine 48 and within normal limits. IMPRESSION/REPORT/PLAN 1. Hyperlipidemia. 2. Type II diabetes mellitus. PLAN: Discussed the findings at length with patient. The patient is going to attempt taking metformin 1000 mg by mouth twice a day with a meal to see if she tolerates this as we will continue monitoring her GI symptoms. Advised to discontinue if diarrhea occurs. Patient then also started on simvastatin 10 mg tablets which she is to take one tablet by mouth in the evening in addition to glipizide 5 mg tablets one tablet by mouth daily. Advised I would like her to follow up in three months time. Patient understands this plan and she denied any further questions. Patient ambulated out of the clinic in no acute distress. Patient Education #1 Patient ready to learn. No apparent learning barriers were identified. Learning preferences included listening. Explained diagnosis and treatment plan. Patient expressed understanding of the content. Nicki Holt D.N.P., F.N.P. / Electronically Signed By: NICKI HOLT DNP, FNP On: 06/03/2010 08:16 Source: [facility] Document Id: [id number] documented in this encounter Miscellaneous Notes Miscellaneous - Nicki Holt D.N.P., C.N.P. - 05/30/2010 8:21 PM CDT Results Notification Document Contains Addenda Addendum by JOHN CONCEPCION LPN on 03 June 2010 10:54:57 CDT Letter sent to patient. From: NICKI HOLT DNP, FNP To: VITALIY DARNELL LPN Sent: 05/30/2010 20:21:39 CDT ! Show up: 05/30/2010 20:21:00 CDT Subject: Results Notification Actions: Notify patient of results Due Date/Time: 05/30/2010 20:21:00 CDT Source: [facility] [employer] Document Id: [id number] Miscellaneous - Nicki Holt, D.N.P., C.N.P. - 05/30/2010 5:24 PM CDT Ambulatory Patient Summary [facility] - [address] [address] Visit Information Name: ARCHIE BAZAN Current Date: 05/30/2010 17:24:54 Primary Care Provider: NICKI HOLT DNP, FNP Your Medications Here is a list of your medications. It is important to take your medications as directed. Use a pillbox or chart to help remind you to take your medications. Please let your doctor or nurse know if you have problems taking your medications. Medication/Strength Dose Route Frequency Indications/Special Instructions/Comments simvastatin (simvastatin 10 mg oral tablet) 10 mg Oral once a day (at bedtime) metformin (metformin 500 mg oral tablet) 1 tab(s) Oral once a day with breakfast glipiZIDE (glipiZIDE 5 mg oral tablet) 5 mg Oral once a day omega-3 polyunsaturated fatty acids (Fish Oil oral capsule) one Oral once a day with breakfast alprazolam (Xanax 0.5 mg oral tablet) 1 [...] blood sugar over a 2-3 month timeframe. Diabetes and/or Vascular: Consider aspirin or antiplatelet therapy 03/19/2010 Ongoing May reduce your risk of heart attack and stroke if on aspirin or anti- platelet therapy. Diabetes: Foot Exam every 1 year 10/08/2009 10/08/2010 Diabetes and/or Vascular: LDL every 1 year 05/25/2010 05/25/2011 Screening Colonoscopy or Flex Sig or Barium Enema or Occult Blood X3 05/30/2010 Checks for signs ofcancer of the colon. Screening Mammogram every 1 year Women 40-75 05/30/2010 X-rays of breast to check for breast cancer. Screening Pap Smear every 3 years Women 21-65 05/30/2010 Checks for signs of cancer of the [...] that year's flu season. Vaccine: Pneumococcal Once 05/30/2010 Immunization to help prevent you from getting 23 kinds of pneumococcal bacteria that can lead to pneumonia, bacteremia and meningitis. Vaccine: Tetanus every 10 years 02/14/2010 02/12/2020 Immunization to help prevent you from getting the serious disease Tetanus (Tyeshajaw). Your Upcoming Appointments Date Time Location Reason Provider No Appointments found Your Goals/Additional instructions: Source: [facility] POWERCHART Document Id: [id number] Electronically signed by Conversion, [facility] [employer] [id number] at 07/20/2016 11:20 AM CDT Miscellaneous - Nicki Holt D.N.P., C.N.P. - 05/30/2010 5:24 PM CDT Ambulatory Depart Summary [facility] - [address] [address] Visit Information Name: ARCHIE BAZAN Current Date: 05/30/2010 17:24:54 Primary Care Provider: NICKI HOLT [facility] BENI JOSE MIGUELPATRICK MAI has been given the following list of medications: Your Medications It is important to take your medications as directed. Use a pill box or chart to help remind you to take your medications. Please let your doctor or nurse know if you have problems taking your medications. Medication/Strength Dose Route Frequency Indications/Special Instructions/Comments simvastatin (simvastatin 10 mg oral tablet) 10 mg Oral once a day (at bedtime) metformin (metformin 500 mg oral tablet) 1 tab(s) Oral once a day with breakfast glipiZIDE (glipiZIDE 5 mg oral tablet) 5 mg Oral once a day omega-3 polyunsaturated fatty acids (Fish Oil oral capsule) one Oral once a day with breakfast alprazolam (Xanax 0.5 mg oral tablet) 1 tab(s) Oral Anxiety aspirin (aspirin 81 mg oral tablet) 1 tab(s) Oral once a day Additional Information: Yes - Current list of reconciled medications is provided and explained to the patient and/or family, guardian/caregiver. Source: [facility] POWERCHART Document Id: [id number] Electronically signed by Conversion, [facility] [employer] [id number] at 07/20/2016 11:20 AM CDT Miscellaneous - Vitaliy Darnell, L.P.N. - 05/30/2010 4:30 PM CDT Health Assessment Health Assessment Entered On: 05/30/2010 16:31 CDT Performed On: 05/30/2010 16:30 CDT by VITALIY DARNELL LPN Nutrition Nutrition Risk Factors by History Adult: None VITALIY DARNELL LPN - 05/30/2010 16:30 CDT Functional Current Daily Living Assistance: None VITALIY DARNELL LPN - 05/30/2010 16:30 CDT Dependent Habits Tobacco Use/Currently Using: No VITALIY DARNELL LPN - 05/30/2010 16:30 CDT Caffeine Use Grid Caffeine Use: Current Type: Tea Frequency: Occasionally VITALIY DARNELL LPN - 05/30/2010 16:30 CDT Psychosocial Domestic Concerns: None VITALIY DARNELL LPN - 05/30/2010 16:30 CDT Advance Directive Advanced Directives: No VITALIY DARNELL LPN - 05/30/2010 16:30 CDT Educ Needs Learning Style Preference Adult Grid Patient: Printed materials Family: None VITALIY DARNELL LPN - 05/30/2010 16:30 CDT Source: [employer] Document Id: [id number] CDT!20 Miscellaneous - Vitaliy Darnell LJairoP.N. 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Safety Person Intake/History Adult Safety Person Intake/History Entered On: 05/30/2010 16:30 CDT Performed On: 05/30/2010 16:23 CDT by VITALIY DARNELL LPN Intake Chief Complaint: Go over lab results Temperature Core: 36.2C(Converted to: 97.2DegF) (LOW) Peripheral Pulse Rate: 60/min Respiratory Rate: 16/min Systolic Blood Pressure: 116mmHg Diastolic Blood Pressure: 64mmHg NIBP Mean: 81mmHg BP Location: Right upper extremity Heart Rhythm: Regular Actual Weight: 88.100kg(Converted to: 194lb 4oz) Weight Source: Standing scale Dosing Weight Clinic: 88.10kg VITALIY DARNELL LPN - 05/30/2010 16:23 CDT Subjective Pain Symptoms: No VITALIY DARNELL LPN - 05/30/2010 16:23 CDT Dependent Habits Tobacco Use/Currently Using: No Tobacco Use/Last 12 months: No Alcohol Use: No VITALIY DARNELL LPN - 05/30/2010 16:23 CDT Caffeine Use Grid Caffeine Use: Current Type: Tea Frequency: Occasionally VITALIY DARNELL LPN - 05/30/2010 16:23 CDT Allergies Allergies (Active) azithromycin Estimated Onset Date: Unspecified ; Created By: PETRA RUSSELL LPN; Reaction Status: Active ; Category: Drug ; Substance: azithromycin ; Type: Allergy ; Updated By: PETRA RUSSELL LPN; Reviewed Date: 03/19/2010 10:42 DEPARTMENT SPECIALIST Benicar Estimated Onset Date: Unspecified ; Created By: PETRA RUSSELL LPN; Reaction Status: Active ; Category: Drug ; Substance: Benicar ; Type: Allergy ; Updated By: PETRA RUSSELL LPN; Reviewed Date: 03/19/2010 10:40 DEPARTMENT SPECIALIST [facility] Document Id: [id number] CDT!25 documented in this encounter Plan of Treatment Not on filedocumented as of this encounter Visit Diagnoses Not on filedocumented in this encounter
--- OUTSIDE RECORDS SUMMARY | 2021-09-05 08:04 | XMS_ITS | Encounter Summary ---
:1945 Author Organization [facility] Address [address] [place] [address] Care Team Providers Name Role Phone Unavailable Primary Care Provider Unavailable Encounter Details Date Type Department Care Team Description 04/21/2007 Hospital Encounter [facility] INPT/OBSRV Yady Vazquez M.D. [address] [place] [address] (Wo rk) Social History Tobacco Use Types [...]
--- OUTSIDE RECORDS SUMMARY | 2021-09-05 08:04 | XMS_ITS | Encounter Summary ---
:1945 Author Organization [facility] Address [address] [place] [address] Care Team Providers Name Role Phone Unavailable Primary Care Provider Unavailable Encounter Details Date Type Department Care Team Description 04/01/2004 Hospital Encounter HX [facility] XRAY Provider, Histori joao Social History Tobacco [...]
--- OUTSIDE RECORDS SUMMARY | 2021-09-05 08:04 | XMS_ITS | Encounter Summary ---
:1945 Author Organization [facility] Address [address] [place] [address] Care Team Providers Name Role Phone Unavailable Primary Care Provider Unavailable Encounter Details Date Type Department Care Team Description 07/06/2002 Hospital Encounter HX NO MAPPING Provider, Historical [...] Miscellaneous - Conversion, Historical Provider Ser - 07/06/2002 6:25 AM CDT [id number] Addended by: DANIEL LOPEZ on: 07/26/2002,4:19 PM Comment: JAMES CUELLAR =BLEEModules accepted: Prog ress Notes Source: [facility] RWHXTRANSXSYS Document Id: [id number] documented in this encounter Plan of Treatment Not on filedocumented as of this encounter Visit Diagnoses Not on filedocumented in this encounter
--- OUTSIDE RECORDS SUMMARY | 2021-09-05 08:04 | XMS_ITS | Encounter Summary ---
:1945 Author Organization [facility] Address [address] [place] [address] Care Team Providers Name Role Phone Unavailable Primary Care Provider Unavailable Encounter Details Date Type Department Care Team Description 02/14/2010 Hospital Encounter [facility] INPT/OBSRV Nicki Anthony, MAL, C.N.P., D.N.P. [address] [place] [address] (Wo rk) Social History Tobacco [...]
--- OUTSIDE RECORDS SUMMARY | 2021-09-05 08:04 | XMS_ITS | Encounter Summary ---
:1945 Author Organization [facility] Address [address] [place] [address] Care Team Providers Name Role Phone Unavailable Primary Care Provider Unavailable Encounter Details Date Type Department Care Team Description 05/25/2010 Hospital Encounter [facility]X [facility] Nicki Holt, MAL, C.N.P., D.N.P. [address] [place], [place] [address] (Wo rk) Social History [...] Miscellaneous - Nicki Holt, Maritza.N.P., C.N.P. - 05/28/2010 7:57 PM CDT Results Notification Document Contains Addenda Addendum by VITALIY VILLEDA LPN on 29 May 2010 09:20:59 CDT Letter sent. From: NICKI HOLT DNP, ARCHITECTURAL DESIGN PROFESSOR To: RAMONITA GUILLERMO LPN Sent: 05/28/2010 19:57:24 CDT ! Show up: 05/28/2010 19:57:00 CDT Subject: Results Notification Actions: Notify patient of results Due Date/Time: 05/28/2010 19:57:00 CDT Source: [facility] POWERCHART Document Id: [id number] Electronically signed by Conversion, [facility] Shot Blaster [id number] at 07/20/2016 11:20 AM CDT documented in this encounter Plan of Treatment Not on filedocumented as of this encounter Visit Diagnoses Not on filedocumented in this encounter
--- OUTSIDE RECORDS SUMMARY | 2021-09-05 08:04 | XMS_ITS | Encounter Summary ---
:1945 Author Organization [facility] Address [address] [place] [address] Care Team Providers Name Role Phone Unavailable Primary Care Provider Unavailable Encounter Details Date Type Department Care Team Description 12/08/2001 Hospital Encounter HX NO MAPPING Provider, Historical [...]
--- OUTSIDE RECORDS SUMMARY | 2021-09-05 08:04 | XMS_ITS | Encounter Summary ---
:1945 Author Organization [facility] Address [address] [place] [address] Care Team Providers Name Role Phone Unavailable Primary Care Provider Unavailable Encounter Details Date Type Department Care Team Description 03/10/2001 Hospital Encounter HX NO MAPPING Provider, Historical [...] Miscellaneous - Conversion, Historical Provider Ser - 03/10/2001 12:00 AM SCORER SINGLE [id number] *-*-*-*-* SEE SCANNED REPORT *-*-*-*-* Source: [facility] RWHXTRANSXSYS Document Id: [id number] documented in this encounter Plan of Treatment Not on filedocumented as of this encounter Visit Diagnoses Not on filedocumented in this encounter
--- OUTSIDE RECORDS SUMMARY | 2021-09-05 08:04 | XMS_ITS | Encounter Summary ---
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 [id number], LURENE : [id number]/OPERATIVE REPORTPREOPE RATIVE DIAGNOSIS:Recurrent incisional hernia.POSTOPERATIVE DIAGNOSIS:Recurrent incisional hernia .PROCEDURE: REPAIR OF CURRENT INCISIONAL HERNIA LAPAROSCOPICALLY WITH MESH AND LYSIS OF ADHESIONS .Anesthesia: General under tracheal tube anesthesia.PROCEDURE: The patient was placed in supine position on the operating room table. Her abdomen was sterilely prepped and draped in a standard fa shion. On the right side of the abdomen parallel to the umbilicus in the anterior axillar line an in cision was made. This was carried down through subcu down to the fascia. 2-0 of Vicryl sutures were placed in the either side of the fascia. The fascia was then incised under direct visualization. T he peritoneum was then grasped and also incised under direct visualization and the abdominal cavity w as entered. The Zunilda was introduced into the abdominal cavity and pneumoperitoneum was obtained. A 5 mm port was then placed in the right upper quadrant via the Interdyne system through separate sta b incision. A 12 mm port was also introduced in similar fashion in the right lower quadrant. There are numerous omental adhesions to the antral abdominal wall were the previous repairs had taken place . These were taken down using some blunt dissection as well as using the harmonic scalpel to take th breann adhesions down. The hernias were identified and easily reduced back into the abdominal cavity wi th careful dissection and lysis of adhesions. There were three fascial defects noted arranged in a c lover leaf array inferior to the previous repair that had taken place with mesh. Sutures from this p revious repair were noted to be intact. There were some abdominal wall adhesions in the left lateral gutter. These were also taken down until the abdominal cavity was cleared of adhesions. A dual Gor e-Amadeo mesh was then brought up onto the table. The size of the mesh felt needed to repair this herni a was 13 x 15 cm. The mesh was cut to that size. The mesh was then placed through the right lower q uadrant port and brought into the abdominal cavity. It was unrolled and tacked to the anterior abdom inal wall using the ___-type tacker. Two 5 mm ports were needed to be introduced during this time on the left side of the abdomen in the left upper outer quadrant and a second one more towards the midl ine. These were also introduced via during the Interdyne system under direct visualization. The fas ashlee then was easily was tacked to the anterior abdominal wall. The abdominal cavity was inspected. There is no obvious signs of bleeding. When taking down the omental adhesions there was some clots n oted but there is no active bleeding noted. The abdominal cavity was irrigated with saline which was removed. All ports were removed under direct visualization of note to the right lower quadrant port was removed earlier in the procedure as the mesh actually did cover this port. Once all ports were removed under direct visualization, the abdominal cavity was watched as pneumoperitoneum was removed and the mesh was found to sit comfortably and flatly on the anterior abdominal wall. The two larger ports, the fascia was closed with figure 8 sutures of 0 Vicryl. The skin was closed of all ports wit h interrupted subcuticular sutures of 4-0 Vicryl. Steri-Strips and dressings were applied. The jud ent tolerated the procedure well and there are no apparent complications.LLT:[id number]. 2-4-0 2 Dustin Bianchi D.O. [facility] Document Id: [id number] documented in this encounter Plan of Treatment Not on filedocumented as of this encounter Visit Diagnoses Not on filedocumented in this encounter
--- OUTSIDE RECORDS SUMMARY | 2021-09-05 08:04 | XMS_ITS | Encounter Summary ---
:1945 Author Organization [facility] Address [address] [place] [address] Care Team Providers Name Role Phone Unavailable Primary Care Provider Unavailable Encounter Details Date Type Department Care Team Description 07/14/2002 Hospital Encounter HX NO MAPPING Arias Robledo [...] Miscellaneous - Conversion, Historical Provider Ser - 07/14/2002 12:00 AM CDT [id number] Marcial Adams [address] [place] [address] July 14, 2002 Dear Marcial Adams The biopsy results from your recent colonoscopy exam on July 06, 2002, at [facility] Endoscopy Department show the following: The tissue samples show benign tissue.You should have another colonoscopy in 5-[address] as recommended by Dr[address] Robledo. If you have any questions/concerns regarding this, please call us at [phone]. Thank you for letting us serve you. Sincerely, Paola Howe Source: [facility] RWHXTRANSXRTFSYS Document Id: [id number] documented in this encounter Plan of Treatment Not on filedocumented as of this encounter Visit Diagnoses Not on filedocumented in this encounter
--- OUTSIDE RECORDS SUMMARY | 2021-09-05 08:04 | XMS_ITS | Encounter Summary ---
:1945 Author Organization [facility] Address [address] [place] [address] Care Team Providers Name Role Phone Unavailable Primary Care Provider Unavailable Encounter Details Date Type Department Care Team Description 03/03/2008 Hospital Encounter [facility] INPT/OBSRV Jermaine Yost P.A.-C. [address] [place] [address] (Wo rk) Social History [...]
--- OUTSIDE RECORDS SUMMARY | 2021-09-05 08:04 | XMS_ITS | Encounter Summary ---
:1945 Author Organization [facility] Address [address] [place] [address] Care Team Providers Name Role Phone Unavailable Primary Care Provider Unavailable Encounter Details Date Type Department Care Team Description 01/03/2009 Hospital Encounter [facility] INPT[facility]OBSRV Clarke Robledo M.D. Social History Tobacco Use Types [...]
--- OUTSIDE RECORDS SUMMARY | 2021-09-05 08:04 | XMS_ITS | Encounter Summary ---
:1945 Author Organization [facility] Address [address] [place] [address] Care Team Providers Name Role Phone Unavailable Primary Care Provider Unavailable Encounter Details Date Type Department Care Team Description 04/20/2009 Hospital En[facility] INPT/OBSRV Jose Alberto Garcia M.D. [address] [place], [place] [address] (Wo rk) Social History Tobacco Use Types [...]
--- OUTSIDE RECORDS SUMMARY | 2021-09-05 08:04 | XMS_ITS | Encounter Summary ---
:1945 Author Organization [facility] Address [address] [place] [address] Care Team Providers Name Role Phone Unavailable Primary Care Provider Unavailable Encounter Details Date Type Department Care Team Description 05/21/2001 Hospital Encounter HX [facility] Dian Morris, Hernan [address] [place], [place] [address] (Wo rk) Social History [...] Provider Ser - 05/21/2001 12:00 AM CST [id number] >> JUDITH FRIAS Fri May 21, 2001 5:27 PM CALL INITIATED. Contact: This office note has been dictated. [facility] Document Id: [id number] documented in this encounter Plan of Treatment Not on filedocumented as of this encounter Visit Diagnoses Not on filedocumented in this encounter
--- OUTSIDE RECORDS SUMMARY | 2021-09-05 08:04 | XMS_ITS | Encounter Summary ---
:1945 Author Organization [facility] Address [address] [place] [address] Care Team Providers Name Role Phone Unavailable Primary Care Provider Unavailable Encounter Details Date Type Department Care Team Description 03/18/2001 Hospital En[facility] SURGCLDian Marks D.O. [address] [place], [place] [address] (Wo rk) Social History [...] Progress Notes Conversion, Historical Provider Ser - 03/18/2001 3:00 PM CST [id number] Addended by: PAWEL SCHMITT on: 03/31/2001,9:50 AM Comment: tranxModules accepted: Progress Not esThis office note has been dictated.Marcial Adams [id number] is a patient well-known to me who I have seen in [place] in the past. She is a 55 y/o white female who approximately 1 year ago underwent repair of an incisional hernia with mesh. She has subsequently come to see me and has a recurrence at the superior aspect of the wound. At this time, she is here to discuss surgery that will be performed on March 22, 2001. PHYSICAL EXAM: Her abdomen is soft with good bowel jonn nds. It is nontender, nondistended. There are no masses or hepatosplenomegaly. Her surgical scar i s well healed. To palpation to the left of the upper portion of the wound, she has an easily reducib le hernia. Due to the patient's size, the fascial defect is not readily able to be palpated to deter mine the size. However, the hernia itself feels to be about 3 cm. In addition to that, she has now noticed a bulge to the right of the incision, and she does have a fairly sizeable fascial defect ther e that feels to be about 3-4 cm in size. But again, I do not believe these measurements are very acc urate as the patient is rather large. There are no other palpable defects at this time. ASSESSMEN T: 55 y/o white female with recurrent incisional hernia. I discussed with the patient the laparosco pic repair. At this time, I think that a preperitoneal approach would be the best option for this pat ient. I discussed with her the risks of surgery, the possibility of conversion to open if we are valerie ble to do it laparoscopically, the possibility of bowel injury, the possibility of with the lysis of adhesions there may be bowel contamination resulting in the need to abort the procedure, and complete it at a different date when there is not bowel contamination. I did explain to her that this is bec ause if there is a large amount of bowel contamination, the risk of mesh infection is too high. We d iscussed the risks of postoperative wound infection including the possibility that the mesh could get infected also requiring removal of the mesh and subsequent prolonged healing with a wound infection and an open wound and subsequent requirement to go back and do surgery to repair the defect if the me sh were removed. We discussed the risk of fistula formation, which is a rare complication from using mesh. We discussed the risk of converting to an open procedure, and I explained to the patient whsusie forte this is not a complication, this would require a longer recovery time. Finally, we discussed the r isks of anesthetics including heart attack or stroke as well as the risk of bowel obstruction postope ratively from adhesive disease. She understands all this and agrees. Oral consent was obtained. Fonseca rgery will be performed on March 22 under general anesthetic.30 minutes of time was spent college and career counselor ing this patient. Marlon Bianchi D.O./plsD: 03/18/01T: 03/29/01 [facility] RWHXTR[facility] Document Id: [id number] documented in this encounter Plan of Treatment Not on filedocumented as of this encounter Visit Diagnoses Not on filedocumented in this encounter
--- OUTSIDE RECORDS SUMMARY | 2021-09-05 08:04 | XMS_ITS | Encounter Summary ---
:1945 Author Organization [facility] Address [address] [place] [address] Care Team Providers Name Role Phone Unavailable Primary Care Provider Unavailable Encounter Details Date Type Department Care Team Description 04/30/2007 Hospital Encounter [facility] INPT/OBSRV Yady Vazquez M.D. [address] [place] [address] (Wo rk) Social History Tobacco Use Types [...]
--- OUTSIDE RECORDS SUMMARY | 2021-09-05 08:04 | XMS_ITS | Encounter Summary ---
:1945 Author Organization [facility] Address [address] [place] [address] Care Team Providers Name Role Phone Unavailable Primary Care Provider Unavailable Encounter Details Date Type Department Care Team Description 07/13/2001 Hospital Encounter [facility] SURGCLDian Marks, Hernan [address] [place], [place] [address] (Wo rk) Social History [...] Progress Notes Conversion, Historical Provider Ser - 07/13/2001 11:45 AM CDT [id number] Addended by: PAWEL SCHMITT on: 07/14/2001,9:57 AM Comment: transcriptionModules accepted: Prog ress NotesThis office note has been dictated.SUBJECTIVE: Ms. Adams is here for f/u and results of a CT scan done in [place]. OBJECTIVE: She previously had an incisional hernia repair with me sh several months ago and has had some persistent right sided abdominal pain. I could not palpate a hernia because of the persistence of the pain. We did perform an abdominal CT, results of which show no evidence of herniation, no evidence of any bowel abnormalities. ASSESSMENT/PLAN: I explained to the patient that this is most likely just some musculoskeletal pain and if she needs to, she can marci e Motrin or Tylenol for it or put warm or ice packs on it. In the meantime, I did recommend given he r age, she should have a colonoscopy for screening purposes and she said she will try to schedule annbaelle t. Otherwise, f/u with me prn. Miguelina Bianchi D.O./PLSD: 07/13/2001T: 07/14/2001 Source: [facility] RWHXTRANSXSYS Document Id: [id number] documented in this encounter Plan of Treatment Not on filedocumented as of this encounter Visit Diagnoses Not on filedocumented in this encounter
--- OUTSIDE RECORDS SUMMARY | 2021-09-05 08:04 | XMS_ITS | Encounter Summary ---
:1945 Author Organization [facility] Address [address] [place] [address] Care Team Providers Name Role Phone Unavailable Primary Care Provider Unavailable Encounter Details Date Type Department Care Team Description 04/20/2007 Hospital Encounter [facility]X [facility] INPT/OBSRV Yady Vazquez M.D. [address] [place] [address] (Wo rk) Social History Tobacco Use Types [...]
--- OUTSIDE RECORDS SUMMARY | 2021-09-05 08:04 | XMS_ITS | Encounter Summary ---
:1945 Author Organization [facility] Address [address] [place] [address] Care Team Providers Name Role Phone Unavailable Primary Care Provider Unavailable Encounter Details Date Type Department Care Team Description 10/30/2008 Hospital Encounter [facility] INPT/OBSRV Jose Alberto Garcia M.D. [address] [place], [place] [address] (Wo rk) Social History [...]
--- OUTSIDE RECORDS SUMMARY | 2021-09-05 08:04 | XMS_ITS | Encounter Summary ---
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
--- OUTSIDE RECORDS SUMMARY | 2021-09-05 08:04 | XMS_ITS | Encounter Summary ---
:1945 Author Organization [facility] Address [address] [place] [address] Care Team Providers Name Role Phone Unavailable Primary Care Provider Unavailable Encounter Details Date Type Department Care Team Description 02/03/2008 Hospital Encounter [facility] INPT/OBSRV Jermaine Yost P.A.-C. [address] [place] [address] (Wo rk) Social History Tobacco [...]
--- OUTSIDE RECORDS SUMMARY | 2021-09-05 08:04 | XMS_ITS | Encounter Summary ---
:1945 Author Organization [facility] Address [address] [place] [address] Care Team Providers Name Role Phone Unavailable Primary Care Provider Unavailable Encounter Details Date Type Department Care Team Description 04/17/[address] [facility] INPT/OBSRV Yady Vazquez M.D. [address] [place] [address] (Wo rk) Social History Tobacco Use Types [...]
--- OUTSIDE RECORDS SUMMARY | 2021-09-05 08:04 | XMS_ITS | Encounter Summary ---
:1945 Author Organization [facility] Address [address] [place] [address] Care Team Providers Name Role Phone Unavailable Primary Care Provider Unavailable Encounter Details Date Type Department Care Team Description 07/06/2007 Hospital Encounter [facility] INPT/OBSRV Yady Vazquez M.D. [address] [place] [address] (Wo rk) Social History Tobacco Use Types [...]
--- OUTSIDE RECORDS SUMMARY | 2021-09-05 08:04 | XMS_ITS | Encounter Summary ---
:1945 Author Organization [facility] Address [address] [place] [address] Care Team Providers Name Role Phone Unavailable Primary Care Provider Unavailable Encounter Details Date Type Department Care Team Description 12/20/2008 Hospital Encounter [facility] INPT/OBSRV Clarke Robledo M.D. Social History [...]
--- OUTSIDE RECORDS SUMMARY | 2021-09-05 08:04 | XMS_ITS | Encounter Summary ---
:1945 Author Organization [facility] Address [address] [place] [address] Care Team Providers Name Role Phone Unavailable Primary Care Provider Unavailable Encounter Details Date Type Department Care Team Description 11/28/2008 Hospital Encounter [facility] INPT/OBSRV Yady Vazquez M.D. [address] [place] [address] (Wo rk) Social History Tobacco Use Types [...]
--- OUTSIDE RECORDS SUMMARY | 2021-09-05 08:04 | XMS_ITS | Encounter Summary ---
:1945 Author Organization [facility] Address [address] [place] [address] Care Team Providers Name Role Phone Unavailable Primary Care Provider Unavailable Encounter Details Date Type Department Care Team Description 01/25/2009 Hospital Encounter [facility] INPT/OBSRV Yady Vazquez M.D. [address] [place] [address] (Wo rk) Social History Tobacco Use Types [...]
--- OUTSIDE RECORDS SUMMARY | 2021-09-05 08:04 | XMS_ITS | Encounter Summary ---
:1945 Author Organization [facility] Address [address] [place] [address] Care Team Providers Name Role Phone Unavailable Primary Care Provider Unavailable Encounter Details Date Type Department Care Team Description 07/30/2007 Hospital Encounter [facility] IN[facility]OBS[facility] Jose Alberto Garcia M.D. [address] [place], [place] [address] (Wo rk) Social History [...]
--- OUTSIDE RECORDS SUMMARY | 2021-09-05 08:04 | XMS_ITS | Encounter Summary ---
:1945 Author Organization [facility] Address [address] [place] [address] Care Team Providers Name Role Phone Unavailable Primary Care Provider Unavailable Encounter Details Date Type Department Care Team Description 10/08/2009 Hospital Encounter [facility] INPT/OBSRV Nicki Anthony, MAL, C.N.P., D.N.P. [address] [place] [address] (Wo rk) Social History Tobacco [...]
--- OUTSIDE RECORDS SUMMARY | 2021-09-05 08:04 | XMS_ITS | Encounter Summary ---
:1945 Author Organization [facility] Address [address] [place] [address] Care Team Providers Name Role Phone Unavailable Primary Care Provider Unavailable Encounter Details Date Type Department Care Team Description 06/09/2001 Hospital Encounter HX NO MAPPING Provider, Historical [...] Miscellaneous - Conversion, Historical Provider Ser - 06/09/2001 12:00 AM CDT [id number] *-*-*-*-* SEE SCANNED REPORT *-*-*-*-* Source: [facility] [id number] Document Id: [id number] documented in this encounter Plan of Treatment Not on filedocumented as of this encounter Visit Diagnoses Not on filedocumented in this encounter
--- OUTSIDE RECORDS SUMMARY | 2021-09-05 08:04 | XMS_ITS | Encounter Summary ---
:1945 Author Organization [facility] Address [address] [place] [address] Care Team Providers Name Role Phone Unavailable Primary Care Provider Unavailable Encounter Details Date Type Department Care Team Description 01/03/2009 Hospital Encounter [facility] INPT/OBSRV Yady Vazquez M.D. [address] [place] [address] (Wo rk) Social History Tobacco Use Types [...]
--- OUTSIDE RECORDS SUMMARY | 2021-09-05 08:04 | XMS_ITS | Encounter Summary ---
:1945 Author Organization [facility] Address [address] [place] [address] Care Team Providers Name Role Phone Unavailable Primary Care Provider Unavailable Encounter Details Date Type Department Care Team Description 04/29/2005 Hospital Encounter HX NO MAPPING Provider, Historical [...]
--- OUTSIDE RECORDS SUMMARY | 2021-09-05 08:04 | XMS_ITS | Encounter Summary ---
:1945 Author Organization [facility] Address [address] [place] [address] Care Team Providers Name Role Phone Unavailable Primary Care Provider Unavailable Encounter Details Date Type Department Care Team Description 02/21/2010 Hospital Encounter [facility] INPT/OBSRV Jermaine Yost P.A.-C. [address] [place] [address] (Wo rk) Social History Tobacco [...]
--- OUTSIDE RECORDS SUMMARY | 2021-09-05 08:04 | XMS_ITS | Encounter Summary ---
:1945 Author Organization [facility] Address [address] [place] [address] Care Team Providers Name Role Phone Unavailable Primary Care Provider Unavailable Encounter Details Date Type Department Care Team Description 05/25/[address] [facility] Nicki Holt, MAL, C.N.P., D.N.P. [address] [place], [place] [address] (Wo rk) Social History [...] VITALIY VILLEDA LPN on 29 May 2010 09:27:33 CDT already taken care of. From: NICKI HOLT DNP, ALUMINUM SHEET CUTTER To: RAMONITA GUILLERMO LPN Sent: 05/28/2010 19:57:24 CDT ! Show up: 05/28/2010 19:57:00 CDT Subject: Results Notification Actions: Notify patient of results Due Date/Time: 05/28/2010 19:57:00 CDT Source: [facility] POWERCHART Document Id: [id number] Electronically signed by Conversion, [facility] Youth Accommodation Support Worker [id number] at 07/20/2016 11:20 AM CDT documented in this encounter Plan of Treatment Not on filedocumented as of this encounter Visit Diagnoses Not on filedocumented in this encounter
--- OUTSIDE RECORDS SUMMARY | 2021-09-05 08:04 | XMS_ITS | Encounter Summary ---
:1945 Author Organization [facility] Address [address] [place] [address] Care Team Providers Name Role Phone Unavailable Primary Care Provider Unavailable Encounter Details Date Type Department Care Team Description 04/20/2008 Hospital Encounter HX [facility] INPT/OBSRV Yady Vazquez M.D. [address] [place] [address] (Wo rk) Social History Tobacco Use Types [...]
== END 2021-08-27 11:34 | disposition home or self-care (01) ==
PROVIDERS: PCP Nurse Practitioner Family; Visit Provider Nurse Practitioner Family
DX: E11.9 Type 2 diabetes mellitus without complications (principal); I10 Essential (primary) hypertension; E78.5 Hyperlipidemia, unspecified; R79.89 Other specified abnormal findings of blood chemistry; M10.9 Gout, unspecified; Z51.81 Encounter for therapeutic drug level monitoring
CPT/HCPCS: 36415; 80048

== ENCOUNTER 2021-10-24 10:18 | Outpatient (CLI) | payer MEDICARE, BC, SELFPAY ==
--- OUTSIDE RECORDS SUMMARY | 2021-10-24 10:28 | XMS_ITS | Encounter Summary ---
:[address] [facility] Address [address] [place] [address] Care Team Providers Name Role Phone Unavailable Primary Care Provider Unavailable Reason for Visit Reason Comments Hand Pain COVID Nurse Line Encounter Details Date Type Department Care Team Description 08/13/2021 Nurse Triage Department of Family Nataly Armstrong Pain; COVID Nurse Medicine in [facility] Shahla Anderson [place], [place] [address] [facility] [address] [place] [phone] Social History Tobacco Use Types Packs/Day Years [...] frequently with soap and water, use hand lure maker if soap and water aren't available. -Wear [...] care: Yes The following references were used: [facility] novel coronavirus (COVID- 19) resources Telephone Encounter [...] left 2nd digit. States had surgery in [facility], states had a flair up after surgery and was placed on medication, but then taken off due to decreased kidney function. States finger is red, sometimes blue/purple, reports continued swelling, states sometimes feels burning in finger. Denies drainage from prior incision, denies fever, denies red streaks. States had surgery on July 09 & July 29 had a flair up Present for: Couple weeks Home cares tried: Tylenol Calling to request: Appointment The recommended disposition is See a health care provider within 24 hours. Patient was warm transferred toShelly Patient Appointment Handbag Framer at the clinic for further assistance. Care Advice Patient/Caregiver understands and will follow care advice?: Yes, able to teach back SEE PCP WITHIN 24 HOURS: * IF OFFICE WILL BE OPEN: You need to be examined within the next 24 hours. Call your doctor (or WIRE MILL ROVER/PA) when the office opens and make an [...] acetaminophen, ibuprofen, or naproxen. * They are fgwu-bas-hemosya (OTC) pain drugs. You can buy them [...] acetaminophen overdose can hurt the liver. * [employer], the company that makes Tylenol, has different dosage instructions for Tylenol in [place] and the [place]. In [place], the maximum recommended dose per day is 4,000 mg or twelve Regular-Strength (325 mg) pills. In the [place], the maximum dose per day is ten Regular-Strength (325 mg) pills. * [employer], the company that makes Aleve, has different dosage instructions for Aleve in [place] and [facility]. In [place], the maximum recommended dose per day is 440 mg (2 pills or caplets). In the [place], the maximum dose per day is [...] of skin around nail) Protocols used: FINGER [id number]-[id number] documented in this encounter Plan of Treatment Not on filedocumented as of this encounter Visit Diagnoses Not on filedocumented in this encounter Additional Health Concerns Assessment Noted Time PHQ-9 Depression Total Score: 7 06/21/2014 9:20 AM CDT documented as of this encounter
--- OUTSIDE RECORDS SUMMARY | 2021-10-24 10:28 | XMS_ITS | Encounter Summary ---
:1945 Author Organization [facility] Address [address] [place] [address] Care Team Providers Name Role Phone Unavailable Primary Care Provider Unavailable Reason for Referral Physical Therapy (Routine) - Authorized Specialty Diagnoses / Procedures Referred By Contact Refer red To Contact Diagnoses Imbalance Non Orthopedic Vignesh Currie M.D. [facility] Procedures PT Evaluate and treat [address] [place] [phone] Referral ID Status Reason Start Date Expiration Date Visits V isits Requested Authorized [id number] Authorized 07/05/2021 07/05/2022 99 99 Reason for Visit Reason Comments PT orders Encounter Details Date Type Department Care Team Description 07/03/2021 Clinical Communication Department of Vignesh Currie orders Cardiovascular Diseases Lee Lance in [facility] [address] [place] [address] [address] [place] [phone] Social History Tobacco Use Types Packs/Day Years [...] off balance. She discussed this with Dr Currie and he said he would put in orders Date needed: Routing: -Order and Lab requests go to [facility] PCP PANEL MANAGERS -Referral Requests go to PCPs ADMINISTRATIVE RESIDENT pool ??? Please pend orders prior to [...]
--- OUTSIDE RECORDS SUMMARY | 2021-10-24 10:28 | XMS_ITS | Encounter Summary ---
:1945 Author Organization [facility] Address [address] [place] [address] Care Team Providers Name Role Phone Unavailable Primary Care Provider Unavailable Reason for Referral Specialty Diagnoses / Procedures Referred By Contact Refer red To Contact [facility] [place] [facility] Professional Buildin [address] [place] [address] Referral ID Status Reason Start Date Expiration Date Visits Requ ested Visits Authorized R SERVICES TECHNICIAN Encounter Details Date Type Department Care Team Description 04/20/2020 Immunization Department of Yasmani Wells For COVID-19 Medicine, Wurtsborolara Simons M.D. Vaccine Immunization Professional Building, [address] (Primary Dx) in [place], [place] [address] [place] [address] [place] [address] Social History Tobacco Use Types Packs/Day [...]
--- OUTSIDE RECORDS SUMMARY | 2021-10-24 10:28 | XMS_ITS | Clinical Summary ---
:1945 Author Organization [facility] Address [address] [place] [address] Care Team Providers Name Role Phone Unavailable Primary Care Provider Unavailable Source Comments Patient records contain information from all sites at [facility]. For routine questions regarding patient records, call [phone] during business hours, M-F 8:00 AM - 5:00 PM Central Time. Record requests for emergency care only can be directed to [phone] at any time.[facility] Allergies Active Allergy Reactions Severity Noted Date Comments Amlodipine Hypotension 02/22/2021 Azathioprine Other (see comments) 07/29/2018 Azithromycin Other (see comments) 03/19/2010 Unknown reaction Lisinopril Other (see comments) Medium 07/29/2018 nightma res Metoprolol Other (see comments) 06/19/2020 unknown Olmesartan Other (see comments) 03/19/2010 Unknown reaction Cfcwqvg-Dxa-Ujm Other (see comments) 01/05/2019 Into lerance to [...] Added automatically from request for cookie tasia [id number] Anemia 12/14/2017 Overview: Added automatically from request for cookie tasia [id number] Ischemic Heart Chronic Disease 02/05/2015 Overview: Coronary Artery Disease (CAD) [place] [facility] judith Diabetes Mellitus Type 2 08/07/2010 Vertigo Vertigo Benign Positional Bilateral Vertigo Benign Paroxysmal Positional Right Encounters Date Type Specialty Care Team Description 08/13/2021 Nurse Triage Family Medicine DaMaliha rondon, Infection M.S.N., R.N. 08/13/2021 Nurse Triage Family Medicine Nataly Armstrong; COVID Shahla Anderson Nurse Line 07/26/2021 Clinical Support Physical Medicine and Ai Patel Imbalance Non Rehabilitation Simone SimonsNRegina [facility] PhyllisLuciana fine PJairoTJairo from Last 3 Months Immunizations Name Administration [...] (1 of 2) 11/15/2015 09/20/2015, 08/28/2015, 08/28/2015 Urine Albumin 11/23/2015 11/22/2014, 12/12/2013, 06/15/2012, Additional history exists Diabetic Office Visit with 05/23/2016 05/24/2015 Foot Exam Diabetes Education 07/30/2016 03/02/2015 DTaP,Tdap,and Td Vaccines 08/17/2019 08/16/2019, 08/16/2019 , (1 - Tdap) 02/14/2010, Additional history exists Depression Screening 02/16/2021 (Annual PHQ-2) Fall Risk Screen (Annual) 02/16/2021 COVID-19 Vaccine (4 - 03/12/2021 12/18/2020, 05/15/2020, Booster for Pfizer series) 04/20/2020 Thyroid Stimulating Hormone 03/16/2021 03/16/2020, 04/23/19 19, (TSH) test for thyroid 12/12/2013, Additional function history exists Hemoglobin A1C 05/15/2021 02/14/2021, 07/25/2020, 06/15/2020, Additional [...] this topic Medical Devices Implanted Type Area Credit Risk Specialist Device Shelf Model / Identifier Expiration Serial / Date Lot Premier 3.0 X 16 - Sorto [id number] Cardiac [place] Implanted: Qty: 1 on 01/26/2015 [employer] Description: Device Credit Risk Specialist - [place]. Device Status Text - [id number]. Insurance Payer Benefit Plan Subscriber ID Effective Phone Address Typ e / Group Dates MEDICARE MEDICARE A [id number] 2010-Pres [address] [place] [address] BLUE CROSS BCBS [place]OL[place]I [id number] 2016-Pres [phone] [address] X Cost Share BLUE SHIELD BLUE COST ent [phone] [place] [address] (Home) [place] [address]
--- OUTSIDE RECORDS SUMMARY | 2021-10-24 10:28 | XMS_ITS | Encounter Summary ---
:1945 Author Organization [facility] Address [address] [place] [address] Care Team Providers Name Role Phone Unavailable Primary Care Provider Unavailable Encounter Details Date Type Department Care Team Description 05/15/2020 Immunization [facility] [employer] Yasmani Sharpe For COVID-19 Medicine, Antonito Tamia Simons. Vaccine Immunization Professional Building, [address] [facility] in [place], [place] [address] [place] [address] [address] [address] [place] [address] [facility] [phone] Social History Tobacco Use Types Packs/Day Years [...]
--- OUTSIDE RECORDS SUMMARY | 2021-10-24 10:28 | XMS_ITS | Encounter Summary ---
:1945 Author Organization [facility] Address [address] [place] [address] Care Team Providers Name Role Phone Unavailable Primary Care Provider Unavailable Reason for Referral Specialty Diagnoses / Procedures Referred By Contact Refer red To Contact Jasmeet Mccormick M.D. [facility] [address] [address] Referral ID Status Reason Start Date Expiration Date Visits Requ ested Visits Authorized PATIONAL THERAPY TECHNICIAN Encounter Details Date Type Department Care Team Description 04/18/2020 Orders Only [facility] PCP TH Sa pamela Terry M.D. [address] [place], [place] [phone] (Wo rk) Social History [...]
--- OUTSIDE RECORDS SUMMARY | 2021-10-24 10:28 | XMS_ITS | Encounter Summary ---
:1945 Author Organization [facility] Address [address] [place] [address] Care Team Providers Name Role Phone Unavailable Primary Care Provider Unavailable Encounter Details Date Type Department Care Team Description 08/02/2020 Orders Only Department of Cardiovascular Xander Currie, Diseases in [place] [address] [facility] [address] [place] [address] [phone] (Wo rk) Social History Tobacco Use Types [...]
--- OUTSIDE RECORDS SUMMARY | 2021-10-24 10:28 | XMS_ITS | Encounter Summary ---
:1945 Author Organization [facility] Address [address] [place] [address] Care Team Providers Name Role Phone Unavailable Primary Care Provider Unavailable Reason for Referral MRI/CAT/PET Scan (Routine) - Closed Specialty Diagnoses / Procedures Referred By Contact Refer red To Contact Radiology Diagnoses Coronary Stent Status Post Pain Chest Atypical Vignesh Currie M.D. Health System Procedures CT Cardiac Angiogram with Coronary Arteries with IV Contrast CT Cardiac Angiogram with IV Contrast [address] [place] [phone] Referral ID Status Reason Start Date Expiration Date Visits Requ ested Visits Authorized [id number] Closed 07/25/2020 07/25/2021 1 1 Reason for Visit MRI/CAT/PET Scan (Routine) - Closed Specialty Diagnoses / Procedures Referred By Contact Refer red To Contact Radiology Diagnoses Coronary Stent Status Post Pain Chest Atypical Vignesh Currie M.D. Health System Procedures CT Cardiac Angiogram with Coronary Arteries with IV Contrast CT Cardiac Angiogram with IV Contrast [address] [place] [phone] Referral ID Status Reason Start Date Expiration Date Visits Requ ested Visits Authorized [id number] Closed 07/25/2020 07/25/2021 1 1 Encounter Details Date Type Department Care Team Description 08/01/2020 Hospital Encounter Department of Vignesh Currie Stent Status Post; Radiology, Son Lance M.D. Pain Chest Atypical Building, in [address] [place] [address] [place] [address] [place], [place] (Work) [phone] Social History Tobacco Use Types Packs/Day Years [...] Sig Dispensed Refills Start Date End Date amLODIPine (NORVASC) 5 mg Take 5 mg by mouth 0 tablet daily. abatacept in NaCl 0.9% Infuse into a [...] a day. Taking only 1 tablet daily zhxtvpcf-hmlzwywoi-hpwevxl 0 9 06/26/2021 hasone (MAXITROL) 3.5mg/mL-10,000 unit/mL-0.1 [...] - 07/17 EXAM: CT CARDIAC ANGIOGRAM WITH CORONARY ARTERIES WITH IV [...] defect. * Mild left atrial enlargement. Small di verticulum from the roof of left atrium. * No tumor or thrombus in the left heart chambers. * Trileaflet aortic valve. Mild thickeni ng of the mitral valve leaflets. * Trace pericardial fluid, likely physio logical. No thickening or calcification. * Dilated main pulmonary artery measurin g 30 mm. * Conventional pulmonary venous anatomy. No anomalous drainage or stenosis. ADDITIONAL FINDINGS: [...]
--- OUTSIDE RECORDS SUMMARY | 2021-10-24 10:28 | XMS_ITS | Encounter Summary ---
:1945 Author Organization [facility] Address [address] [place] [address] Care Team Providers Name Role Phone Unavailable Primary Care Provider Unavailable Reason for Visit Reason Comments Follow-up Appointment Request (Routine) - Closed Specialty Diagnoses / Procedures Referred By Contact Refer red To Contact Referral ID Status Reason Start Date Expiration Date Visits Requ ested Visits Authorized [id number] Closed 05/07/2021 05/07/2022 1 Encounter Details Date Type Department Care Team Description 06/26/2021 Office Visit Department of Vignesh Currie ent Status Post (Primary Dx); Cardiovascular Diseases B, MJairoDJairo Imbalance Non Orthopedic; in [place], [address] [place] [address] Diabetes Mellitus Type 2 (HCC); [place], [place] Hyperlipidemia Mixed [address] [place] [address] [address] [address] [place], [place] [phone] [address] (Work) [phone] Social History Tobacco Use Types Packs/Day Years [...] Marcial is a pleasant 76-year-old female from [place], [place]. She is known to me from multiple prior visits over the years. She presents to the clinic today accompanied by her . Since I saw her last, she has had a couple new medical issues come to light. She was feeling off-balance. Shedenies vertigo or room spinning sensation. She further denied orthostatic symptoms such as lightheaded with standing. Rather, she would feel off balance while walking. She was using her walker for a while, but ultimately presented to the [facility] for evaluation. She underwent a comprehensive workup which included presumably CT scan [...] gastritis with multiple petechial hemorrhages throughout the vis ualized stomach. There were stigmata of recent bleeding, but no ulcer. She was advised to start omeprazole, which she has been taking 30 minutes before the morning meal. She was having some postprandial stomach discomfort that seems to have improved since starting omeprazole. Her biggest complaint today is actually pain at the distal interphalangeal joint of the 2nd finger on the left hand. She follows with a seismic prospecting observer in the [facility]. She has been diagnosed with rheumatoid arthritis and receivesinfusion therapy with abatacept. My biggest concern today is difficulty reconciling her medications. Her cares list between [facility], [facility], as well as seismic prospecting observer in the [facility]. She had her medications written down [...] She informs me that at least 1 clinicvisit (presumably during the workup of her balance [...] the distal interphalangeal joint of the 2nd digitof the left hand. Psych: Alert and oriented, [...] in followup. Unfortunately, I was not able toreconcile her meds. She is going to go [...] Vignesh Currie M.D. CT CT Job ID: [id number] documented in this encounter Plan of Treatment [...]
--- OUTSIDE RECORDS SUMMARY | 2021-10-24 10:28 | XMS_ITS | Encounter Summary ---
:1945 Author Organization [facility] Address [address] [place] [address] Care Team Providers Name Role Phone Unavailable Primary Care Provider Unavailable Encounter Details Date Type Department Care Team Description 08/07/2020 Clinical Communication Department of Family No Contact , Pcp Medicine, [facility], in [address] [address] Social History Tobacco Use Types [...] the phone between 7 am-6 pm, Thursday-Thursday. [place]: [phone] [place]: [phone] [place]: [phone] [place]: [phone] [place]: [phone] [place]: [phone] [facility]: [phone] Kalpesh Caldwell [place], [place], or [place] clinics: [phone] [place]:[phone] [place]: [phone] Thank you for trusting your health care to [facility]. documented in this encounter Plan of Treatment Not on filedocumented as of this encounter Visit Diagnoses Not on filedocumented in this encounter Additional Health Concerns Assessment Noted Time PHQ-9 Depression Total Score: 7 06/21/2014 9:20 AM CDT documented as of this encounter
--- OUTSIDE RECORDS SUMMARY | 2021-10-24 10:28 | XMS_ITS | Encounter Summary ---
:1945 Author Organization [facility] Address [address] [place] [address] Care Team Providers Name Role Phone Unavailable Primary Care Provider Unavailable Encounter Details Date Type Department Care Team Description 10/02/2020 Orders Only RST PCP TH Lana Terry M.D. [address] [place], [place] [phone] (Wo rk) Social History [...]
--- OUTSIDE RECORDS SUMMARY | 2021-10-24 10:28 | XMS_ITS | Encounter Summary ---
:1945 Author Organization [facility] Address [address] [place] [address] Care Team Providers Name Role Phone Unavailable Primary Care Provider Unavailable Reason for Visit Reason Comments Eye Problem Encounter Details Date Type Department Care Team Description 06/24/2021 Clinical Communication Department of Estelle Martinez Problem Ophthalmology in Eric Abrams R.N. [place] [address] [phone] Social History Tobacco Use Types Packs/Day Years [...] Miscellaneous Notes Telephone Encounter - Estelle Martinez RSusan - 06/24/2021 4:29 PM CDT Let patient [...] has been evaluated in the ED in [place] whereshe had a head CT and labs [...] Her last eye exam was done in [facility]. Intervention Reaching out to OPH [...] following individuals participated in today???s interaction: patient Social Media Intern used: no Additional concerns addressed: none documented in this encounter Plan of Treatment Not on filedocumented as of this encounter Visit Diagnoses Not on filedocumented in this encounter Additional Health Concerns Assessment Noted Time PHQ-9 Depression Total Score: 7 06/21/2014 9:20 AM CDT documented as of this encounter
--- OUTSIDE RECORDS SUMMARY | 2021-10-24 10:28 | XMS_ITS | Encounter Summary ---
:[address] [facility] Address [address] [place] [address] Care Team Providers Name Role Phone Unavailable Primary Care Provider Unavailable Reason for Referral Physical Therapy (Routine) - Authorized Specialty Diagnoses / Procedures Referred By Contact Refer red To Contact Diagnoses Imbalance Non Orthopedic Adriane Patel, C.N.P. [facility] Procedures PT Ongoing treatment [address] [place], [place] [address] Referral ID Status Reason Start Date Expiration Date Visits V isits Requested Authorized [id number] Authorized 07/23/2021 07/23/2022 99 99 Reason for Visit Appointment Request (Routine) - Closed Specialty Diagnoses / Procedures Referred By Contact Refer red To Contact Physical Therapy Diagnoses Vertigo Benign Paroxysmal Positional Adriane Patel, C.N.P. [address] [place] [address] Referral ID Status Reason Start Date Expiration Date Visits Requ ested Visits Authorized [id number] Closed 07/05/2021 07/05/2022 1 1 Encounter Details Date Type Department Care Team Description 07/17/2021 Comprehensive Visit Department of Elizabeth Patel C.N.PJairo [address] [place], [place] [id number] Imbalance Non Rehabilitation Rogers Alva, P.TJairo [address] [phone] Orthopedic Services in [address] [phone] Social History Tobacco Use Types Packs/Day Years [...] AND B / Product Type: Medicare / IMScouting Visit Count: 1 PERTINENT MEDICAL / SURGICAL [...] achieve established physical therapy goals within the timeframe outlined below, provided active participation in the [...] Miscellaneous Notes Addendum Note - Rogers Alva P.T. - 07/17/2021 10:45 AM CDT Addended by: [...]
--- OUTSIDE RECORDS SUMMARY | 2021-10-24 10:28 | XMS_ITS | Clinical Summary ---
:1945 Author Organization [facility] [place] [address] Care Team Providers Name Role Phone Lincoln Vazquez Primary Care Provider Allergies Active Allergy Reactions Severity Noted Date Comments Amlodipine Hypotension 02/22/2021 Azathioprine Other - Describe In 07/29/2018 Comment Field Azithromycin Other - Describe In 03/19/2010 Unknown reaction Comment Field Lisinopril Other - Describe In Medium 07/29/2018 nightmar es Comment Field nightmares Metoprolol Other - Describe In 06/19/2020 unknown Comment Field Olmesartan Other - Describe In 03/19/2010 Unknown reaction Comment Field Iarsbkr-Zbv-Ipi Other - Describe In 01/05/2019 Intol erance to Statin Reductase Inhibitors Comment Field Intole sami to Statin Intolerance to Statin Medications Medication Sig Dispensed Refills Start Date End Date Status calcium carbonate Take 1,000 mg by 0 Active (CALTRATE) 600 mg mouth. calcium (1,500 mg) tablet ALPRAZolam (XANAX) 0.5 TAKE ONE TABLET 0 03/17/2020 Active mg tablet BY MOUTH EVERY 8 HOURS NEEDED FOR ANXIETY- MUST LAST 30 DAYS cholecalciferol, Total is 20,000 0 Active Vitamin D3, 5,000 unit per week tab tablet glipiZIDE Take ONE pill 0 11/09/2020 Activ e extended-release ONCE a day for (GLUCOTROL XL) 10 mg diabetes Do not Extended-Release crush, chew, or tablet split. insulin glargine, Take 22 units 0 12/05/2020 Active U-100, (Basaglar once a day in the KwikPen U-100 Insulin) PM for diabetes 100 unit/mL (3 mL) pen OR DIRECTED levothyroxine Take 75 mcg by 0 12/05/2020 Active (SYNTHROID) 75 mcg mouth. tablet leflunomide (ARAVA) 20 Take 20 mg by 0 Active mg tablet mouth. metFORMIN (GLUCOPHAGE TAKE ONE TABLET 0 11/12/2020 Active XR) 500 mg BY MOUTH DAILY Extended-Release WITH DINNER tablet ferrous sulfate, 65 mg Take 325 mg by 0 11/09/2020 Active elemental, tablet mouth. omeprazole (PRILOSEC) Take 1 Capsule 30 Capsule 3 03/22/2021 Active 20 mg Delayed-Release (20 mg) by mouth capsuleIndications: once daily before Abdominal pain, a meal. Take epigastric 30-60 minutes before a meal/food once a day. Active Problems Problem Noted Date Rheumatoid arthritis 03/13/2021 Stage 3 chronic kidney disease 03/13/2021 Type 2 diabetes mellitus with complication, with long- term current use of 03/13/2021 insulin Immunizations Name Administration Dates Next Due Influenza, High-dose Quadrivalent Inactivated 11/09/2020 Pneumococcal Poly,23-Valent (Pneumovax) 08/16/2019, 01/28/20 08 Pneumococcal conj 13-Valent (Prevnar 13) 06/21/2014 Td, Preservative Free (age >= 7 Years) 08/16/2019 Tdap 02/14/2010 Zoster (Zostavax-ZVL, live) 09/20/2015, 08/28/2015 Social History Tobacco Use Types Packs/Day Years Used Date Never Smoker Smokeless Tobacco: Never Used Tobacco Cessation: Counseling Given: Yes Alcohol Use Standard Drinks/Week Comments Never 0 (1 standard drink = 0.6 oz pure alcoho l) Alcohol Habits Answer Date Recorded How often do you have a drink containing alcohol? Never 03/13/2021 How many drinks containing alcohol do you have on a typical Not asked day when you are drinking? How often do you have six or more drinks on one occasion? No t asked Comment: Not asked Sex Assigned at Date Recorded Not on file Obstetrics History Last Filed Vital Signs Vital Sign Reading Time Taken Comments Blood Pressure 144/79 03/13/2021 11:51 AM COMBINATION WELDER Pulse 77 03/13/2021 11:51 AM COMBINATION WELDER Temperature 36.6 ??C (97.8 ??F) 03/13/2021 11:51 AM COMBINATION WELDER Respiratory Rate - - Oxygen Saturation 98% 03/13/2021 11:51 AM COMBINATION WELDER Inhaled Oxygen Concentration - - Weight 81.8 kg (180 lb 6.4 oz) 03/13/2021 11:51 AM COMBINATION WELDER Height 157.6 cm (5' 2.05) 03/13/2021 11:51 AM COMBINATION WELDER Body Mass Index 32.95 03/13/2021 11:51 AM COMBINATION WELDER Plan of Treatment Health Maintenance Due Date Last Done Comments Depression screening for age 12+ 1957 Hepatitis C screening for age 18-79 06/05/1963 DEXA/DXA scan for age 65+ 2010 Medicare Wellness for age 65+ 2010 Zoster (shingles) series for age 50+ 11/15/2015 09/20/2015, 08/28/2015 (2 of 3) COVID-19 vaccine series (4 - Booster 04/17/2021 12/18/2020, 05/15/2020, for Pfizer series) 04/20/2020 Influenza for age 65+ 10/17/2021 11/09/2020 BMI (ht and wt on same day) for age 0103/13/2022 03/13/2021 18+ Tetanus booster 08/15/2029 08/16/2019, 02/14/2010 Tdap Completed 02/14/2010 Pneumococcal series for age 65+ Completed 08/16/2019, 0507/2014, 01/28/2008 Results Not on filefrom Last 3 Months Insurance Payer Benefit Plan / Subscriber ID Effective Dates Phone Addre ss Type Group BLUE CROSS [place] BLUE CROSS [id number] 2016-Present [address] [address] [place], [place] ONLY [id number] Care Teams Container Coordinator Relationship Specialty Start Date End Date Lincoln Vazquez PCP - General 10/22/[address] [place] [address]
--- OUTSIDE RECORDS SUMMARY | 2021-10-24 10:28 | XMS_ITS | Encounter Summary ---
:1945 Author Organization [facility] Address [address] [place] [address] Care Team Providers Name Role Phone Unavailable Primary Care Provider Unavailable Encounter Details Date Type Department Care Team Description 07/25/2020 Hospital Encounter Department of Vignesh Currie [facility] Heart Chronic Disease; Laboratory Medicine Lee Lance Diabetes Mellitus Type 2 (HCC) in [place] [phone] [facility] [phone] [place], [place] (Work) [phone] Social History Tobacco Use [...] a day. Taking only 1 tablet daily ojcyokhv-konnrnsbf-hwyyiqc 0 9 06/26/2021 hasone (MAXITROL) 3.5mg/mL-10,000 unit/mL-0.1 [...] WITHOUT Routine 07/25/2020 2:13 PM Ischemic Heart Results for this DIFFERENTIAL, B CDT Chronic Disease procedure are in the results section. HEMOGLOBIN A1C, B Routine 07/25/2020 2:13 PM Diabetes Mellitus Results for this CDT Type 2 (HCC) procedure are i n the results section. BASIC METABOLIC Routine 07/25/2020 2:13 PM Ischemic Heart Resu lts for this PANEL, S/P CDT Chronic Disease procedure ar e in the results section. documented in this encounter Results (ABNORMAL) Hemoglobin A1c (07/25/2020 2:13 PM CDT) P athologist Signature Hemoglobin A1c, 7.7 (H) 4.2 [...] / Volume Laterality Blood (Blood, 07/25/2020 2:13 PM 07/26/19 2:17 Venous) CDT PM CDT Vignesh Currie M.D. LAB BLOOD ADD-ON Performing Organization Address City/State/ZIP Code Phon e Number [facility]- [address] [place] [phone] [place] [address] [place] [address] System in [address] (ABNORMAL) Basic Metabolic Panel (07/25/2020 2:13 PM CDT) Analysis Performed At Patho logist Time Signature Potassium, P 4.5 3.6 - 5.2 07/25/2020 CNFL mmol/L 2:43 PM CDT Sodium, P 139 135 - 145 07/25/2020 CNFL mmol/L 2:43 PM CDT Chloride, P 105 98 - 107 07/25/2020 CNFL mmol/L 2:43 PM CDT Bicarbonate, P 25 22 - 29 07/25/2020 CNFL mmol/L 2:43 PM CDT Anion Gap, P 9 7 - 15 07/25/2020 CNFL 2:43 PM CDT BUN (Blood Urea 29 (H) 6 - 21 07/25/2020 CNFL Nitrogen), P mg/dL 2:43 PM CDT Creatinine 1.49 (H) 0.59 - 07/25/2020 CNFL 1.04 mg/dL 2:43 PM CDT eGFR-Black/Afri 39 (L) >=60 07/25/2020 CNFL can Mauritanian mL/min/BSA 2:43 PM CDT Comment: ----ADDITIONAL INFORMATION---- Estimated GFR calculated using the 2009 CKD_EPI creatinine equation. eGFR Non-Black/ 34 (L) >=60 mL/min/BSA 07/25/2020 2:43 PM CDT CNFL [place]ian Comment: ----ADDITIONAL INFORMATION---- Estimated GFR calculated using the 2009 CKD_EPI creatinine equation. Calcium, Total, P 9.6 8.8 - 10.2 mg/dL 07/25/2020 2:43 PM CDT CNFL Glucose, P 167 (H) 70 - 140 mg/dL 07/25/2020 2:43 PM CDT C NFL Specimen Anatomical Collection Method Collection Time Receive d Time (Source) Location / / Volume Laterality Blood (Blood, 07/25/2020 2:13 PM 07/26/19 2:17 Venous) CDT PM CDT Vignesh Currie M.D. LAB BLOOD ADD-ON Performing Organization Address City/State/ZIP Code Phon e Number [facility]- [address] [place] [phone] [place] [address] [place] [address] [address] (ABNORMAL) CBC without Differential (07/25/2020 2:13 PM CDT) [facility] Method Time Signature Hemoglobin 11.0 (L) [...] / Volume Laterality Blood (Blood, 07/25/2020 2:13 PM 07/26/19 2:17 Venous) CDT PM CDT Vignesh Currie M.D. LAB BLOOD ADD-ON Performing Organization Address City/State/ZIP Code Phon e Number [address] [address] [place] [address] System in [address] documented in this encounter Visit Diagnoses Diagnosis Ischemic Heart Chronic Disease Diabetes Mellitus Type 2 (HCC) documented in this encounter Additional Health Concerns Assessment Noted Time PHQ-9 Depression Total Score: 7 06/21/2014 9:20 AM CDT documented as of this encounter
--- OUTSIDE RECORDS SUMMARY | 2021-10-24 10:28 | XMS_ITS | Encounter Summary ---
:1945 Author Organization [facility] Address [address] [place] [address] Care Team Providers Name Role Phone Unavailable Primary Care Provider Unavailable Reason for Visit Reason Comments Symptom Assessment SOB, Lightheadedness Encounter Details Date Type Department Care Team Description 07/18/2020 Clinical Department of Kush, Symptom Assess ment Communication Cardiovascular Vignesh Lance, (SOB, [facility] [place], [place] [address] [phone] Social History Tobacco Use Types Packs/Day Years [...] to schedule patient with Dr. Currie in [place] on 07/25/2020 at 3:15pm with labs prior. [...] days as tolerated aiming for 20 minutes eachtime and gradually increasing her duration as tolerated. 2. She is experiencing lightheadedness intermittent. This has also been ongoing since last fall. Shestates this seems to be more when she is bending over to pick something up or weeding in her garden or when her blood sugars are low. She has been working on making sure her blood sugars remain within range and has noticed this helped with some of the lightheadedness. Nurse encouraged her to either sit on a stool to weed or possibly avoid bending over when able as her blood pressure can drop causing the lightheadedness. She will try this and see if it improves her symptoms. She will let us know if it does not help. 3. She has [...] on the shoulder sensation. She will work on her walking program and be more conscious of [...] a message on her home phone number [phone] documented in this encounter Plan of Treatment [...] Organization Address City/State/ZIP Code Phon e Number [facility]- [address] [place] [phone] [place] [address] System [address] (ABNORMAL) Basic Metabolic Panel (07/25/2020 2:13 [...] eGFR-Black/Afri 39 (L) >=60 07/25/2020 CNFL can Czech mL/min/BSA 2:43 PM CDT Comment: ----ADDITIONAL INFORMATION---- Estimated GFR calculated using the 2009 CKD_EPI creatinine equation. eGFR Non-Black/ 34 (L) >=60 mL/min/BSA 07/25/2020 2:43 PM CDT CNFL [place] Comment: ----ADDITIONAL INFORMATION---- Estimated GFR calculated using [...] Organization Address City/State/ZIP Code Phon e Number [facility]- [address] [place] [phone] [place] [address] System in [address] (ABNORMAL) CBC without Differential (07/25/2020 2:13 PM CDT) [facility] Method Time Signature Hemoglobin 11.0 [...] 07/26/19 2:17 Venous) CDT PM CDT Vignesh Currei M.D. LAB BLOOD ADD-ON Performing Organization Address City/State/ZIP Code Phon e Number [facility]- [address] [place] [address] [place] [address] [place] [address] System in [address] documented in this encounter Visit Diagnoses Diagnosis Ischemic Heart Chronic Disease - Primary Diabetes Mellitus Type 2 (HCC) documented in this encounter Additional Health Concerns Assessment Noted Time PHQ-9 Depression Total Score: 7 06/21/2014 9:20 AM CDT documented as of this encounter
--- OUTSIDE RECORDS SUMMARY | 2021-10-24 10:28 | XMS_ITS | Encounter Summary ---
:1945 Author Organization [facility] Address [address] [place] [address] Care Team Providers Name Role Phone Unavailable Primary Care Provider Unavailable Reason for Visit Reason Comments Med Refill Encounter Details Date Type Department Care Team Description 02/19/2021 Refill Department of Cardiovascular [facility] Vignesh bella M.D. Med Refill Diseases in [place], [place] [address] [facility] [address] [place] [address] [place] [address] [phone] Social History Tobacco Use Types Packs/Day Years [...]
--- OUTSIDE RECORDS SUMMARY | 2021-10-24 10:28 | XMS_ITS | Encounter Summary ---
:1945 Author Organization [facility] Address [address] [place] [address] Care Team Providers Name Role Phone Unavailable Primary Care Provider Unavailable Reason for Visit Reason Comments COVID Inquiry Encounter Details Date Type Department Care Team Description 07/26/2020 Clinical Communication Department of Vignesh Currie OVID Inquiry Cardiovascular Medicine Lee Lance in [facility] [address] [facility] [address] [place] [phone] Social History Tobacco Use Types Packs/Day Years [...] appointment being requested?: Less than 14 days [place] In the past 14 days are any of the following symptoms new to you and not related to an existing health condition?: No symptoms noted In the past 14 days have you had close contact* with a person who has a LABORATORY CONFIRMED case ofCOVID-19?: No exposure noted, follow appt process (End Screening) Plan: Endpoint recommendation: Followed regional OT *Reminder if sending patient for testing in [facility], route encounter to the correct testing pool. documented in this encounter Plan of Treatment Not on filedocumented as of this encounter Visit Diagnoses Not on filedocumented in this encounter Additional Health Concerns Assessment Noted Time PHQ-9 Depression Total Score: 7 06/21/2014 9:20 AM CDT documented as of this encounter
--- OUTSIDE RECORDS SUMMARY | 2021-10-24 10:28 | XMS_ITS | Encounter Summary ---
:1945 Author Organization [facility] Address [address] [place] [address] Care Team Providers Name Role Phone Unavailable Primary Care Provider Unavailable Reason for Visit Reason Comments Infection Encounter Details Date Type Department Care Team Description 08/13/2021 Nurse Triage Department of [facility] Maliha Faulkner, [facility] Medicine, [facility], in M.S.N., R.N. [place], [place] [address] [place] [phone] Social History Tobacco Use Types Packs/Day Years [...] encounter Miscellaneous Notes Telephone Encounter - Maliha Faulkner M.S.Jose Alberto., R.N. - 08/13/2021 8:43 AM CDT Chief Complaint / Reason for Call Patient is a 76 y.o. female calling regarding Infection. Assessment Concern: Gout surgery on Left index Finger on 07/09/21 from an outside facility out of [place]. She is not concerned with signs of infection due to mild pain, redness, and swelling of finger. Also stating she has concerns of generalized extremity weakness following surgery, having a difficulty time lifting arms and legs. Denies any SOB, chest pain, necrotic tissue, drainage, fevers, chills. Since procedure was done at an outside facility with no PCP here at [place], it was recommended she follow back up with the surgical facility that she had it done at for most efficient and effective care. Patient was hoping to see an orthopedic here closer in proximity to her, but it was recommended that since surgery was not long ago with new concerns, [...]
--- OUTSIDE RECORDS SUMMARY | 2021-10-24 10:28 | XMS_ITS | Encounter Summary ---
:1945 Author Organization [facility] Address [address] [place] [address] Care Team Providers Name Role Phone Unavailable Primary Care Provider Unavailable Reason for Referral MRI/CAT/PET Scan (Routine) - Closed Specialty Diagnoses / Procedures Referred By Contact Refer red To Contact Radiology Diagnoses Coronary Stent Status Post Pain Chest Atypical Vignesh Currie M.D. [facility] Procedures CT Cardiac Angiogram with Coronary Arteries with IV Contrast CT Cardiac Angiogram with IV Contrast [address] [place] [phone] Referral ID Status Reason Start Date Expiration Date Visits Requ ested Visits Authorized [id number] Closed 07/25/2020 07/25/2021 1 1 Reason for Visit Reason Comments Shortness of Breath Appointment Request (Routine) - Closed Specialty Diagnoses / Procedures Referred By Contact Refer red To Contact Cardiovascular Disease Referral ID Status Reason Start Date Expiration Date Visits Requ ested Visits Authorized [id number] Closed 07/18/2020 07/18/2021 1 1 Encounter Details Date Type Department Care Team Description 07/25/2020 Office Visit Department of Vignesh Currie Pain Chest Atypical (Primary Dx); Cardiovascular Diseases Lee Lance Anemia; in [place], [address] [place] [address] Coronary Stent Status [address] [place] [address] [address] [place], [place] [phone] (Work) [phone] Social History Tobacco Use Types Packs/Day Years [...] Ceja is a pleasant 75-year-old female from [place], [place]. She is known to me from prior consultation. She carries a history of ischemic heart disease with prior percutaneous coronary intervention to the LAD back in 2014. Presentation at that time was atypical chest pain as documented in Dr. Haile's cardiology progress note. Marcial actually requested this consult due to some new concerns.She has a difficult time articulating exactly how she feels, but describes a sensation of feeling achy and weak with activity. She will feel this up in her shoulders. She is concerned that this is related to her heart. She has also been more aware of effort intolerance for example when walking up the [employer] or doing other chores around the house. This seems to have progressed and become more frequent. She is not had classical substernal chest pain. She denies dizziness or lightheadedness. She has had no falls or fainting. In tandem with her more atypical symptoms, she has had some increase in lowerextremity swelling. Towards the end of the stay, [...] consult. She has stable anemia with a hemoglobin just around 11 g/dL. Her hemoglobin A1c is actually the best I have seen in quite some time, it is 7.7%. Her basic metabolic panel shows an increasing creatinine to 1.49 which is up from 1.3 in 2018. I did compare it with recent [facility] blood work. This is a bit higher [...] of recumbency. Cardiac auscultation is normal. Specifically, the rhythm is regular without audible murmur. Extremities: There is 1-2+ pitting edema predominantly at the dorsum of the feet and ankles and to alesser extent pretibial of the lower shins. Skin: [...] atypical presentation, I would favor a CT coronary angiogram. This will help assess for stent patency. Her cardiac exam is otherwise normal apart from lower extremity swelling. I am going to have her take a very low dose of Lasix 10 mg as needed. She was given4 doses. I will notify Marcial of the results of the CT scan when available. I have also asked her to monitor blood pressure and heart rate during her episodes as this may provide some additional clarifying information. She has had a modest elevation of creatinine on most recent blood draw, but she has had similar fluctuations in the past, as I have confirmed on reviewing the outside blood work at [facility]. I think it would be reasonable to repeat a basic metabolic panel in a couple of weeks. I also ordered a ferritin to be added to her stored specimen. She has a history of chronic anemia, but I do not see that she has had prior iron studies. Vignesh Currie M.D. CT CT Job ID: [id number] documented in this encounter Plan of Treatment [...]
--- OUTSIDE RECORDS SUMMARY | 2021-10-24 10:28 | XMS_ITS | Encounter Summary ---
:1945 Author Organization [facility] Address [address] [place] [address] Care Team Providers Name Role Phone Unavailable Primary Care Provider Unavailable Reason for Visit Physical Therapy (Routine) - Authorized Specialty Diagnoses / Procedures Referred By Contact Refer red To Contact Diagnoses Imbalance Non Orthopedic Adriane Patel, C.N.P. [facility] Procedures PT Ongoing treatment [address] [place], [place] [address] Referral ID Status Reason Start Date Expiration Date Visits V isits Requested Authorized [id number] Authorized 07/23/2021 07/23/2022 99 99 Encounter Details Date Type Department Care Team Description 07/26/2021 Clinical Support Department of Ai Patel, C.N.P. [address] [place] [address] Imbalance Non Rehabilitation Luciana Ferguson, P.T. [address] [place] [phone] Orthopedic Services in [address] [phone] Social History Tobacco Use Types Packs/Day Years [...] no OBJECTIVE Pain: no new complaint. Hallpike Mazama test caused symptom reproduction for the right [...]
--- OUTSIDE RECORDS SUMMARY | 2021-10-24 10:28 | XMS_ITS | Encounter Summary ---
:1945 Author Organization [facility] Address [address] [place] [address] Care Team Providers Name Role Phone Unavailable Primary Care Provider Unavailable Reason for Referral Outpatient (Routine) - Closed Specialty Diagnoses / Procedures Referred By Contact Refer red To Contact Diagnoses Opacity Lens Posterior Capsule Zach Novoa M.D. [facility] Procedures Yag Capsulotomy - OS - Left Eye [address] [place] [address] Referral ID Status Reason Start Date Expiration Date Visits Requ ested Visits Authorized [id number] Closed 06/14/2020 06/14/2021 1 1 Reason for Visit Reason Comments Yag Laser Encounter Details Date Type Department Care Team Description 06/14/2020 Office Visit Department of Zach Novoa Opacity Le ns Posterior Capsule (Primary Dx); Ophthalmology in Eric Simons M.D. Dry Eye Syndrome [address] [phone] Social History Tobacco Use Types Packs/Day Years [...] documented as of this encounter Progress Notes Zach Novoa M.D. - 06/14/2020 9:15 AM CDT Marcial Adams was seen today for Yag Laser #1 Opacity Lens Posterior Capsule #2 Dry Eye Syndrome Left The patient is referred by Dr. [facility] for capsule opacification of the left eye. She has a history of pseudophakia OU, capsule opacification OS and dry eyes and blepharitis. She has not been faithful to her dry eye and blepharitis treatment. She has noticed monocular diplopia in the left eye with night driving and blurred vision by day. Slit-lamp examination OS: Lid margin shows no active blepharitis, tear films attenuated, conjunctivaclear quiet, cornea shows scant inferior keratopathy, but central corneas clear. The PC IOLs in good position but there is +2 capsule opacification with a fold of the capsule through the visual axis. Fundus: OS-the disc, macula, vessels and periphery normal. Impression: 1. Visually disabling capsule opacification OS 2. Dry eye blepharitis Plan: 1. Recommend Yag capsulotomy today 2. Resume blepharitis and dry eye treatment 3. See Dr. Vasquez in about 2 weeks for a post Yag manifest refraction. documented in this encounter Plan of Treatment Not on filedocumented as of this encounter Procedures Procedure Name Priority Date/Time Associated Comments Diagnosis YAG CAPSULOTOMY - OS Routine 06/14/2020 10:12 Opacity Lens Res ults for this - LEFT EYE AM CDT Posterior Capsule procedure are in the results section. documented in this encounter Results Yag Capsulotomy - OS - Left Eye (06/14/2020 10:12 AM CDT) Specimen (Source) Anatomical Location Collection Method / Collectio n Time Received Time / Laterality Volume Narrative Zach Novoa M.D. - 06/14/2020 10 :12 AM CDT Time Out Confirmed correct patient, procedure, si te, and patient consented. Procedure Procedure was Capsulotomy. Topical anest hesia was used. Anesthesia medications included Iopidine 0.5%. Laser Information The type of laser was yag. Total spots w as 52. The energy was 1 millijoules. Post-op The patient tolerated the procedure well . There were no complications. The patient received written and verbal post procedure care education. Zach Novoa M.D. OPHTH CLINIC PROCEDURES documented in this encounter Visit Diagnoses Diagnosis Opacity Lens Posterior Capsule - Primary Dry Eye Syndrome Left documented in this encounter Additional Health Concerns Assessment Noted Time PHQ-9 Depression Total Score: 7 06/21/2014 9:20 AM CDT documented as of this encounter
--- OUTSIDE RECORDS SUMMARY | 2021-10-24 10:29 | XMS_ITS | Encounter Summary ---
:1945 Author Organization [facility] Address [address] [place] [address] Care Team Providers Name Role Phone Unavailable Primary Care Provider Unavailable Encounter Details Date Type Department Care Team Description 01/14/2018 Nurse Triage Department of [facility] Kyra Howe R.N. Medicine, [facility], in [address] [place], [place] [address] [place] [address] [place] [address] [phone] Social History Tobacco Use Types Packs/Day Years [...]
--- OUTSIDE RECORDS SUMMARY | 2021-10-24 10:29 | XMS_ITS | Encounter Summary ---
:1945 Author Organization [facility] Address [address] [place] [address] Care Team Providers Name Role Phone Unavailable Primary Care Provider Unavailable Reason for Visit Reason Comments Advice Only Encounter Details Date Type Department Care Team Description 06/29/2019 Clinical Communication Department of Lilian Hadley Only Ophthalmology in [facility] [place] [address] [facility] [address] [place] [phone] Social History Tobacco Use Types Packs/Day [...] this encounter Miscellaneous Notes Telephone Encounter - Sindy Hadley - 06/29/2019 1:48 PM CDT Periodically, she is experiencing blurriness in her vision. It returns after a few minutes. She is wondering if it should be of concern. She is diabetic. She is wondering what could be causing this an would like to speak a nurse. documented in this encounter Plan of Treatment Not on filedocumented as of this encounter Visit Diagnoses Not on filedocumented in this encounter Additional Health Concerns Assessment Noted Time PHQ-9 Depression Total Score: 7 06/21/2014 9:20 AM CDT documented as of this encounter
--- OUTSIDE RECORDS SUMMARY | 2021-10-24 10:29 | XMS_ITS | Encounter Summary ---
:1945 Author Organization [facility] Address [address] [place] [address] Care Team Providers Name Role Phone Unavailable Primary Care Provider Unavailable Reason for Referral Outpatient (Routine) - Closed Specialty Diagnoses / Procedures Referred By Contact Refer red To Contact Cardiovascular Disease Vignesh Currie [facility] [place] [facility] M.D. [address] [place] [phone] Referral ID Status Reason Start Date Expiration Date Visits Requ ested Visits Authorized [id number] Closed 11/03/2019 11/02/2020 1 1 Reason for Visit Reason Comments Follow-up Outpatient (Routine) - Closed Specialty Diagnoses / Procedures Referred By Contact Refer red To Contact Cardiovascular Disease Vignesh Currie [facility] [place] [facility] M.D. [address] [place] [phone] Referral ID Status Reason Start Date Expiration Date Visits Requ ested Visits Authorized [id number] Closed 03/17/2019 03/16/2020 1 1 Encounter Details Date Type Department Care Team Description 11/03/2019 Office Visit Department of Vignesh Currie Diabetes Me llitus Type 2 (HCC) (Primary Dx); Cardiovascular Diseases Lee Lance Ischemic Heart Chronic Disease in [id number] [place] [address] [address] [address] [place], [place] [phone] (Work) [phone] Social History Tobacco Use Types Packs/Day Years [...] Marcial is a pleasant 74-year-old female from [place], [place]. She is known to me from several prior visits. In brief, she has a history of coronary artery disease with prior stenting of the LADback in 2014. She has type 2 diabetes with evidence of poor glycemic control over the past 2-1/2 years. Her hemoglobin A1c has been above 8% consistently. She is on high dose glipizide along with insulin and metformin was recently restarted. She previously worked with a it infrastructure specialist, but has since transitioned to working with Dr. Vazquez solely through the [facility]. She has additional comorbidities of rheumatoid arthritis on leflunomide, hyperlipidemia with excellent LDL control on most recent lipid screen from February. Overall, Marcial has done well in the interim since I saw her last. She did have some increased chestsymptoms last night. She describes this is substernal chest discomfort that would come on while sitting. The symptoms were improved with walking. There was no exertional component. She does have a history of atypical shoulder and neck discomfort. Otherwise, [...] above 8%. She was only just recently restarted on metformin, although we discussed this back in [...] which she highly values. I encouraged a dailywalking program. I will make arrangements to see Marcial back in 1 month. We will get hemoglobin A1c at that time. Thereason for deferring for 1 month is her last hemoglobin A1c was in August and this will ensure insurance approval. If hemoglobin A1c levels remain above 8%, we will then consider a cardiovascular beneficial medication such as liraglutide. Spent 25 minutes in consultation. Vignesh Currie M.D. CT CT Job ID: [id number] documented in this encounter Plan of Treatment [...] / Volume Laterality Blood (Blood, 12/15/2019 9:03 AM 12/15/19 9:03 Venous) CDT AM CDT Vignesh Currie M.D. LAB BLOOD ADD-ON Performing Organization Address City/State/ZIP Code Phon e Number [facility]- [address] [place] [phone] [place] [address] [place] [address] [address] documented in this encounter Visit Diagnoses Diagnosis Diabetes Mellitus Type 2 (HCC) - Primary Ischemic Heart Chronic Disease documented in this encounter Additional Health Concerns Assessment Noted Time PHQ-9 Depression Total Score: 7 06/21/2014 9:20 AM CDT documented as of this encounter
--- OUTSIDE RECORDS SUMMARY | 2021-10-24 10:29 | XMS_ITS | Encounter Summary ---
:1945 Author Organization [facility] Address [address] [place] [address] Care Team Providers Name Role Phone Unavailable Primary Care Provider Unavailable Encounter Details Date Type Department Care Team Description 05/07/2018 Clinical Support Department of Ai Patel C.N.PJairo [address] [place] [address] Vertigo Ben[facility] Rehabilitation Luciana Ferguson, P.T. [address] [place] [phone] Paroxysmal Services in [address] [phone] Social History Tobacco Use Types Packs/Day Years [...] of positional vertigo this morning when rolling to the left to get out of bed. Patient did have complete resolution of symptoms last time. This is a newonset. Symptoms include dizziness, spinning and disequilibrium. OBJECTIVE [...] and spouse have all handouts and been instructedon the technique. Both verbalized understanding. Maneuvers will not be performed if patient wakes upsymptom-free. Pt reports good compliance with her HEP. [...]
--- OUTSIDE RECORDS SUMMARY | 2021-10-24 10:29 | XMS_ITS | Encounter Summary ---
:1945 Author Organization [facility] Address [address] [place] [address] Care Team Providers Name Role Phone Unavailable Primary Care Provider Unavailable Reason for Visit Reason Comments Eye Drainage Appointment Request (Routine) - Closed Specialty Diagnoses / Procedures Referred By Contact Refer red To Contact Ophthalmology Referral ID Status Reason Start Date Expiration Date Visits Requ ested Visits Authorized [id number] Closed 12/16/2018 12/16/2019 1 Encounter Details Date Type Department Care Team Description 12/17/2018 Office Visit Department of Janak Hadleyri tis Left (Primary Dx); Ophthalmology in Eric Moe M.D. Blepharitis Right [address] [phone] Social History Tobacco Use Types Packs/Day Years [...] in [address] Cruz in [place]. I would be happy to see her [...]
--- OUTSIDE RECORDS SUMMARY | 2021-10-24 10:29 | XMS_ITS | Encounter Summary ---
:1945 Author Organization [facility] Address [address] [place] [address] Care Team Providers Name Role Phone Unavailable Primary Care Provider Unavailable Reason for Referral Outpatient (Routine) - Closed Specialty Diagnoses / Procedures Referred By Contact Refer red To Contact Cardiovascular Disease Vignesh Currie [facility] [place] [facility] M.D. [address] [place] [phone] Referral ID Status Reason Start Date Expiration Date Visits Requ ested Visits Authorized [id number] Closed 03/17/2019 03/16/2020 1 1 IX WORKER Reason for Visit Reason Comments Follow-up Outpatient (Routine) - Closed Specialty Diagnoses / Procedures Referred By Contact Refer red To Contact Cardiovascular Disease Vignesh Currie [facility] [place] [facility] M.D. [address] [place] [phone] Referral ID Status Reason Start Date Expiration Date Visits Requ ested Visits Authorized [id number] Closed 07/29/2018 07/29/2019 1 1 Encounter Details Date Type Department Care Team Description 03/17/2019 Office Visit Department of Vignesh Currie Diabetes Me llitus Type 2 (HCC) (Primary Dx); Cardiovascular Diseases Lee Lance Hyperlipidemia Mixed in [place] [address] [address] [place], [place] [phone] (Work) [phone] Social History Tobacco Use Types Packs/Day Years [...] Comments Blood Pressure 120/70 03/17/2019 8:59 AM MATRIX WORKER Pulse 75 03/17/2019 8:59 AM apical regula r MATRIX WORKER Temperature - - Respiratory Rate 16 03/17/2019 8:59 AM MATRIX WORKER Oxygen Saturation - - Inhaled Oxygen Concentration - - Weight 82.7 kg (182 lb 5.1 03/17/2019 8:59 AM oz) MATRIX WORKER Height 157 cm (5' 1.81) 03/17/2019 8:59 AM MATRIX WORKER Body Mass Index 33.55 03/17/2019 8:59 AM MATRIX WORKER documented in this encounter Progress Notes Vignesh Currie M.D. - 03/17/2019 8:38 AM CST SUBJECTIVE CHIEF COMPLAINT/REASON FOR VISIT Mixed hyperlipidemia, history of coronary artery disease. HISTORY OF PRESENT ILLNESS Marcial is a pleasant 73-year-old female from [place], [place]. She is known to me from prior consultation last spring and summer. At last visit, I prescribed Vascepa for hypertriglyceridemia in the setting of type 2 diabetes and established coronary artery disease. Thus, she fit the clinical profile of the REDUCE-IT trial. Unfortunately, her insurance [...] the clinic visit notes with her recent cannoneer. Unfortunately, her hemoglobin A1c has risen further to 8.8%. This likely reflects dietary indiscretion and snacking. She is working on carbohydrate reduction. She was suggested to start on Ozempic, but she is reluctant to do so based on her reading of complications in rats. She was previously on metformin but for some reason, this was stopped in the past due to [...] It was a pleasure to visit with Niurkaclemencia in followup. Unfortunately, lipid panel was not obtained prior to this visit. I have requested blood draw here in the exam room and the results are pending. She continues on Crestor 2.5 mg daily. Unfortunately, her insurance declined Vascepa for her hypertriglyceridemia. Thus, she has been on high dose ccrk-ytm-teayxpm fish oil to achieve an EPA/DHA dose of 4 g.Hopefully once Vascepa achieves guideline recommendation, we can make another attempt with her insurance company. Her hemoglobin A1c unfortunately has risen further to 8.8%. This is based on her outpatient clinic visit note in [facility]. She was advised to consider Ozempic but she is not interested inthis due to a study she read involving rats and increased tumors. She was previously on metformin, but this was discontinued due to borderline kidney function. I do not think that her mild renal insufficiency precludes the use of metformin and I have suggested she discuss this further with her cannoneer. I recognize that metformin by itself would not dramatically alter her hemoglobin A1c levels, nonetheless, prior RCT data has shown survival benefit on metformin. Twenty-five minutes in consultation with greater than 50% in direct xnhv-ey-qogb counseling. Vignesh Currie M.D. CT CT Job ID: [id number] IX WORKER documented in this encounter Plan of Treatment Scheduled Referrals Name Type Priority Associated Order Schedule Diagnoses Cardiovascular Disease Outpatient Referral Routine Expected: office visit (clinic) 2019 (Approximate), Expires: 03/17/2022 documented as of this encounter Procedures Procedure Name Priority Date/Time Associated Diagnosis Comme nts LIPID PANEL, S Routine 03/17/2019 9:31 AM Diabetes Mellitus Re sults for this MATRIX WORKER Type 2 (HCC) procedure are in the Hyperlipidemia Mixed results section. documented in this encounter Results (ABNORMAL) Lipid Panel (03/17/2019 9:31 AM MATRIX WORKER) P athologist Signature Cholesterol, 160 mg/dL 03/17/2019 CNFL Total 9:51 AM MATRIX WORKER Comment: ----REFERENCE VALUE---- Desirable: < 200 Borderline high: 200 - 239 High: > or = 240 Triglycerides 195 (H) mg/dL 03/17/2019 9:51 AM MATRIX WORKER CNF L Comment: ----REFERENCE VALUE---- Normal: <150 Borderline high: 150-199 High: 200-499 Very high: > or =500 Cholesterol, HDL 49 (L) >=50 mg/dL 03/17/2019 9:51 AM MATRIX WORKER CNFL Calculated LDL 72 mg/dL 03/17/2019 9:51 AM MATRIX WORKER CN FL Comment: ----REFERENCE VALUE---- Desirable: <100 Above Desirable: 100-129 Borderline high: 130-159 High: 160-189 Very high: > or =190 Cholesterol, Non-HDL, Calculated 111 mg/dL 020 9:51 AM MATRIX WORKER CNFL Comment: ----REFERENCE VALUE---- Desirable: <130 Above Desirable: 130-159 Borderline high: 160-189 High: 190-219 Very high: > or =220 Specimen Anatomical Collection Method Collection Time Receive d Time (Source) Location / / Volume Laterality Blood (Blood, 03/17/2019 9:31 AM 03/17/19 20 9:31 Venous) MATRIX WORKER AM MATRIX WORKER Vignesh Currie M.D. LAB BLOOD ADD-ON Performing Organization Address City/State/ZIP Code Phon e Number [facility]- [address] [place] [phone] [place] [address] [place] [address] System [address] documented in this encounter Visit Diagnoses Diagnosis Diabetes Mellitus Type 2 (HCC) - Primary Hyperlipidemia Mixed documented in this encounter Additional Health Concerns Assessment Noted Time PHQ-9 Depression Total Score: 7 06/21/2014 9:20 AM CDT documented as of this encounter
--- OUTSIDE RECORDS SUMMARY | 2021-10-24 10:29 | XMS_ITS | Encounter Summary ---
:1945 Author Organization [facility] Address [address] [place] [address] Care Team Providers Name Role Phone Unavailable Primary Care Provider Unavailable Encounter Details Date Type Department Care Team Description 06/29/2018 Hospital Encounter Department of Adriane Patel, Mass Inguinal Radiology in [place], [place] [facility] [address] [place] [phone] Social History Tobacco Use Types Packs/Day Years [...] Name Priority Date/Time Associated Comments Diagnosis US NON VASCULAR RAD - Routine 06/29/2018 11:51 Mass Inguinal Result s for this LOWER EXTREMITY (most inpatients AM CDT procedur e are in LEFT and all the results outpatients) section. documented in this encounter Results US Non Vascular Lower Extremity Left (06/29/2018 11:51 AM CDT) Anatomical Region Laterality Modality Lower Extremity, Ultrasound RST LOS, Musculoskeletal ARZ LOS , Left Ultrasound Ultrasound ARZ LOS, Ultrasound FLA LOS Specimen (Source) Anatomical Collection Method Collection Time Re ceived Time Location / / Volume Laterality 06/29/2018 12:30 PM CDT Impressions 06/29/2018 12:37 PM CDT IMPRESSION: Targeted ultrasound of the left inner upper thigh was performed in the area indicated by the patient. ??Het erogeneous hypoechoic mass with in the dermis measures 0.3 x 0.6 x 1.1 cm, like ly epidermal inclusion cyst or sebaceous cyst. Narrative 06/29/2018 12:37 PM CDT EXAM: US NON VASCULAR LOWER EXTREMITY LEFT COMPARISON: None Procedure Note Jackson Hutchins M.D. - 06/29/2018Formatti ng of this note might be different from the original. EXAM: US NON VASCULAR LOWER EXTREMITY LE FT COMPARISON: None IMPRESSION: Targeted ultrasound of the l eft inner upper thigh was performed in the area indicated by the patient. Heter ogeneous hypoechoic mass with in the dermis measures 0.3 x 0.6 x 1.1 cm, like ly epidermal inclusion cyst or sebaceous cyst. Adriane ZIMMERMAN US PROCEDURES documented in this encounter Visit Diagnoses Diagnosis Mass Inguinal documented in this encounter Additional Health Concerns Assessment Noted Time PHQ-9 Depression Total Score: 7 06/21/2014 9:20 AM CDT documented as of this encounter
--- OUTSIDE RECORDS SUMMARY | 2021-10-24 10:29 | XMS_ITS | Encounter Summary ---
:1945 Author Organization [facility] Address [address] [place] [address] Care Team Providers Name Role Phone Unavailable Primary Care Provider Unavailable Reason for Referral Outpatient (Routine) - Closed Specialty Diagnoses / Procedures Referred By Contact Refer red To Contact Cardiovascular Disease Vignesh Currie [facility] S E ABEBA Sandhu M.D. [address] [place] [address] Referral ID Status Reason Start Date Expiration Date Visits Requ ested Visits Authorized [id number] Closed 04/26/2018 04/26/2019 1 1 Reason for Visit Reason Comments Follow-up Thompson patient. Shortness of Breath Outpatient (Routine) - Closed Specialty Diagnoses / Procedures Referred By Contact Refer red To Contact Cardiovascular Disease MARIA DEL ROSARIO Escamilla SE [address] Phoebe Jean-Baptiste M.D. [address] [place] [address] Referral ID Status Reason Start Date Expiration Date Visits Requ ested Visits Authorized [id number] Closed 08/03/2017 08/03/2018 1 1 Encounter Details Date Type Department Care Team Description 04/26/2018 Office Visit Department of Vignesh Currie Coronary Ar wilbert Disease [place]essel (Primary Dx); Cardiovascular Diseases Lee Lance Diabetes Mellitus Type 2 (HCC); in [facility] [address] [place] [address] [address] [address] [place], [place] [phone] [address] (Work) [phone] Social History Tobacco Use Types Packs/Day Years [...] Marcial is a pleasant 72-year-old female from [place], [place]. She has previously followed with my [...] 70% lesion in the LAD and underwent drug-eluting stent placement. Her symptoms of dyspnea and shoulder discomfortimproved following that. More recently, she is followed for concerns of nightmares which improved after discontinuing metoprolol, as well as lightheaded spells. The patient informs me she underwent a Neurology workup at [facility] and was given a diagnosis of vertigo. She does not recall specific therapeutic intervention. She has additional comorbidities [...] is shortness of breath and some occasional shoulderand neck tightness. She feels that her shoulder [...] she had undertaken in the past several m onths. Overall, she is rating her functional capacity 75% at best. Her atypical shoulder and neck discomfort is not consistently related to physical activity. She denies chest pain. She has had no lower extremity swelling. No bleeding issues. No stroke or TIA symptoms. Lastly, she continues to have occasional spells of dizziness and unsteadiness. She has some symptomsthat would suggest positional vertigo such as exacerbation [...] the stairs) without effort-limiting dyspnea. There is nota clear consistent relationship between exertional dyspnea and her neck and shoulder discomfort. Regardless of diagnostic or therapeutic considerations, improving her aerobic fitness will be the singlemost important intervention. As such, I have strongly encouraged her to increase her activity levels. She has a treadmill in the home. We discussed several different routines that she can incorporate. For her unsteadiness and dizzy episodes, she is interested in further evaluation. I am referring [facility]to the [facility] to evaluate and treat. If her symptoms are not felt consistent with vertigo, then we will consider a Neurology consultation. I agree with Dr. Caal that autonomic dysfunctionis in the differential. Patient informs me she has checked her blood glucose during the spells and has not identified hypoglycemia. Her prior lipid profile from July showed a marked elevation of LDL cholesterol. Her prior statin wasdiscontinued due to concerns that it might be contributing to nightmares. She has recently restartedCrestor. I will plan to see her back in 3 months with a repeat lipid profile. We will also reassess her exertional symptoms at that time. Twenty-five minutes in consultation, greater than 50% in direct wuxo-bu-drdx counseling. CT CT Job ID: [id number]/imx documented in this encounter Plan of Treatment [...] Address City/State/ZIP Code Phon e Number [facility]- [address] [place] [address] [place] [address] [facility] documented in this encounter Visit Diagnoses Diagnosis Coronary Artery Disease [place] Vessel - Primary Diabetes Mellitus Type 2 (HCC) Vertigo documented in this encounter Additional Health Concerns Assessment Noted Time PHQ-9 Depression Total Score: 7 06/21/2014 9:20 AM CDT documented as of this encounter
--- OUTSIDE RECORDS SUMMARY | 2021-10-24 10:29 | XMS_ITS | Encounter Summary ---
:1945 Author Organization [facility] Address [address] [place] [address] Care Team Providers Name Role Phone Unavailable Primary Care Provider Unavailable Encounter Details Date Type Department Care Team Description 02/26/2018 Comprehensive Visit Department of Elizabeth Patel C.N.PJairo [address] [place], [place] [id number] Vertigo Benign Paroxysmal Positional Rig ht; Rehabilitation Rogers Alva, P.T. [address] [place] [address] [phone] Coronary Artery Disease [place] Vessel; Services in [place] Diabetes Mellitus Type 2 (HCC); [place], [place] Vertigo [address] [place] [phone] Social History Tobacco Use Types Packs/Day Years [...] documented as of this encounter Progress Notes Rogers Alva P.T. - 02/26/2018 11:00 AM CST Physical Therapy Outpatient Treatment Note By co-signing this note, the provider certifies the therapy being provided to this patient is reasonable and necessary for the diagnosis or treatment of this patient. SUBJECTIVE Patient's Name: Marcial Adams Referring Provider: Diallo Bran* Visit Diagnosis: 1. Vertigo Benign Paroxysmal Positional Right Payor: MEDICARE / Plan: MEDICARE A AND B / Product Type: Medicare / No Data Recorded Epic Visit Count: 4 Patient comments: patient reports he woke this morning with insidious onset of positional vertigo. Patient describes symptoms as dizziness, spinning, lightheadedness and disequilibrium. Patient denies any nausea or vomiting. Patient reports had difficulty walking due to symptoms. There is a point where she was unable to move. Patient has had history of positional vertigo in the past with successful canalith repositioning. OBJECTIVE Pain: No pain reported Ortho Exam Normal cervical range of motion. Hallpike Karan testing was positive for left posterior canal nystagmus greater than 60 sec. TREATMENT Treatment today consisted of: Perform canalith repositioning for the left posterior canal x2. Initiated head shake in each position due to prolonged nystagmus. Home Exercise Program/Education: Patient will not initiate home exercises but will be wear positioning. Patient will minimize vertical head movements, avoid lying on the left side if possible, and sleep in a semi upright position for 2 nights. Patient provided with handout on positional vertigo. Assessment Clinical Impression: Tolerated treatment with symptom reproduction. Functional Goals and Timeframes: PT Goal #1: Patient be symptom free in 2 weeks. Plan Plan for next session: Patient will contact therapist if further therapy is needed. Anticipate resolution of symptoms with 1 treatment session. Time Spent with Patient PT Re-Evaluation (min): 25 min Time Calculation Total Treatment Time (min): 25 min Functional G-code Worksheet Rogers Alva P.T. TROTHERAPIST documented in this encounter Miscellaneous Notes Addendum Note - Rogers Alva PJairoT. - 02/26/2018 11:00 AM ELECTROTHERAPIST Addended by: ROGERS ALVA on: 03/09/2018 09:39 AM Modules accepted: Orders TROTHERAPIST documented in this encounter Plan of Treatment Not on filedocumented as of this encounter Visit Diagnoses Diagnosis Vertigo Benign Paroxysmal Positional Rig ht Coronary Artery Disease [place] Vessel Diabetes Mellitus Type 2 (HCC) Vertigo documented in this encounter Additional Health Concerns Assessment Noted Time PHQ-9 Depression Total Score: 7 06/21/2014 9:20 AM CDT documented as of this encounter
--- OUTSIDE RECORDS SUMMARY | 2021-10-24 10:29 | XMS_ITS | Encounter Summary ---
:1945 Author Organization [facility] Address [address] [place] [address] Care Team Providers Name Role Phone Unavailable Primary Care Provider Unavailable Encounter Details Date Type Department Care Team Description 02/26/2018 Nurse Triage Department of Marizol Paul R.N. Medicine, [facility], [address] [facility] in [place], [place] [address] [place] [address] [place] [address] [phone] Social History Tobacco Use Types Packs/Day Years [...]
--- OUTSIDE RECORDS SUMMARY | 2021-10-24 10:29 | XMS_ITS | Encounter Summary ---
:1945 Author Organization [facility] Address [address] [place] [address] Care Team Providers Name Role Phone Unavailable Primary Care Provider Unavailable Encounter Details Date Type Department Care Team Description 07/27/2018 Hospital Encounter Department of Vignesh Currie Artery Disease [place] Vessel; Laboratory Medicine Tamia Lance. Diabetes Mellitus Type 2 (HCC); in [place] [address] [facility] [phone] [place], [place] (Work) [phone] Social History Tobacco Use [...] Artery Res ults for this CDT Disease [place] V essel procedure are in the Diabetes [...] Organization Address City/State/ZIP Code Phon e Number [facility]- [address] [address] [facility] documented in this encounter Visit Diagnoses Diagnosis Coronary Artery Disease [place] Vessel Diabetes Mellitus Type 2 (HCC) Vertigo documented in this encounter Additional Health Concerns Assessment Noted Time PHQ-9 Depression Total Score: 7 06/21/2014 9:20 AM CDT documented as of this encounter
--- OUTSIDE RECORDS SUMMARY | 2021-10-24 10:29 | XMS_ITS | Encounter Summary ---
:1945 Author Organization [facility] Address [address] [place] [address] Care Team Providers Name Role Phone Unavailable Primary Care Provider Unavailable Reason for Visit Reason Comments Follow-up Encounter Details Date Type Department Care Team Description 02/24/2019 Office Visit Department of Janak Hadley Blephari tis Left (Primary Dx); Ophthalmology in Eric Moe M.D. Blepharitis [place], [place] [address] [place] [phone] [phone] Social History Tobacco Use Types Packs/Day Years [...] year complete exam, sooner if any issues. 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
--- OUTSIDE RECORDS SUMMARY | 2021-10-24 10:29 | XMS_ITS | Encounter Summary ---
:1945 Author Organization [facility] Address [address] [place] [address] Care Team Providers Name Role Phone Unavailable Primary Care Provider Unavailable Reason for Visit Reason Onset Date Comments Results 03/25/2019 Encounter Details Date Type Department Care Team Description 03/25/2019 Clinical Communication Department of Vignesh Currie Cardiovascular Diseases Lee Lance in [address] [address] [place], [place] [phone] [address] (Work) [phone] Social History Tobacco Use Types Packs/Day Years [...] R.N. 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
--- OUTSIDE RECORDS SUMMARY | 2021-10-24 10:29 | XMS_ITS | Encounter Summary ---
:1945 Author Organization [facility] Address [address] [place] [address] Care Team Providers Name Role Phone Unavailable Primary Care Provider Unavailable Encounter Details Date Type Department Care Team Description 01/07/2019 Clinical Communication Department of Josi Pittman, Ophthalmology in [address] [address] [phone] Social History Tobacco Use Types Packs/Day Years [...] were quite thick. Patient was directed to domorning lid soaks, baby shampoo lid scrubs in the evening, and to use artificial tears 2-3 times perday bilaterally. Also, patient may consider supplementing with fish oil in the future if her conditions do not improve. Patient calls with concern because she continues to have blurry vision and its hard to read at times. She feels as though her eye lids continue to be kind of puffy. Patient endorses to be soaking hereyes in the mornings and performing lid scrubs in the evening. She states that she stopped using thelubricating tears a few days ago because her eyes quit watering or tearing. Intervention This comic book writer educated patient on dry eye syndrome, especially during the winter months when we have alot of dry air in our homes and cars. Patient may need to faithfully use lubricating tears during the winter for this reason. This comic book writer directed patient to restart the artificial tears, safe to use 4 times daily. To continue with the lid soaks and lid scrubs. This comic book writer explained that it cantake at least a week to notice less blurry vision after faithfully using the artificial tears, faithfully and daily. Also, this comic book writer suggested to add humidification to patient's home. Has patient called or presented with the same symptom previously yes - 12/17/18 Is patient experiencing other symptoms: no The following references were used: nursing clinical judgement and other telephone triage sulma's pages [phone] Education provided: patient/caller able to teach back Disposition/Recommendation: self-care as stated above appropriate at this time, patient encouraged to call back with questions Caller agreeable to plan of care: yes The following individuals participated in today???s interaction: patient Electrical Engineering Intern used: no Additional concerns addressed: none CAL CONSULTANT documented in this encounter Plan of Treatment Not on filedocumented as of this encounter Visit Diagnoses Not on filedocumented in this encounter Additional Health Concerns Assessment Noted Time PHQ-9 Depression Total Score: 7 06/21/2014 9:20 AM CDT documented as of this encounter
--- OUTSIDE RECORDS SUMMARY | 2021-10-24 10:29 | XMS_ITS | Encounter Summary ---
:1945 Author Organization [facility] Address [address] [place] [address] Care Team Providers Name Role Phone Unavailable Primary Care Provider Unavailable Reason for Visit Reason Onset Date Comments Medical Information 01/24/2019 clarification on ble pharitis information Encounter Details Date Type Department Care Team Description 01/24/2019 Clinical Department of Dorina Bucio, Medical Infor mation Communication [facility]maryann fication [place], [place] blepharitis [address] [place] [address] information) [place] [address] Social History Tobacco Use Types [...] this encounter Miscellaneous Notes Telephone Encounter - Dorina Bucio, R.N. - 01/24/2019 3:28 PM CST Abbie- nurse at [facility]- called on behalf of this patient; asking for clarification on whether an antibiotic eye drop would help with her blepharitis eye symptoms. It was explained, that an antibiotic wouldn't help. But to continue using the warm moist packs 2 times daily and the artificial tears 3-4 times daily. The patient does state that the eye is improving,but not totally better at this time. The patient was reminded, that if it is worrisome, to see Dr. Cruz or come in to Dr. Hadley for a recheck. Also to consider using fish oil, and to discuss with any eye doctor. 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
--- OUTSIDE RECORDS SUMMARY | 2021-10-24 10:29 | XMS_ITS | Encounter Summary ---
:1945 Author Organization [facility] Address [address] [place] [address] Care Team Providers Name Role Phone Unavailable Primary Care Provider Unavailable Encounter Details Date Type Department Care Team Description 12/15/2019 Hospital Encounter Department of Vignesh Currie miky Mellitus Type 2 (HCC); Laboratory Medicine Lee Lance Ischemic Heart Chronic Disease in [place] [address] [facility] [phone] [place], [place] (Work) [phone] Social History Tobacco Use [...] a day. Taking only 1 tablet daily gejlxomb-oqdexrblw-ygwoirb 0 9 06/26/2021 hasone (MAXITROL) 3.5mg/mL-10,000 unit/mL-0.1 [...] A1C, B Routine 12/15/2019 9:03 AM Diabetes Mellitus Results for this CDT Type [...] Organization Address City/State/ZIP Code Phon e Number [facility]- [address] [place] [address] [place] [address] [address] documented in this encounter Visit Diagnoses Diagnosis Diabetes Mellitus Type 2 (HCC) Ischemic Heart Chronic Disease documented in this encounter Additional Health Concerns Assessment Noted Time PHQ-9 Depression Total Score: 7 06/21/2014 9:20 AM CDT documented as of this encounter
--- OUTSIDE RECORDS SUMMARY | 2021-10-24 10:29 | XMS_ITS | Encounter Summary ---
:1945 Author Organization [facility] Address [address] [place] [address] Care Team Providers Name Role Phone Unavailable Primary Care Provider Unavailable Encounter Details Date Type Department Care Team Description 07/18/2019 Silent Schedule Department of Janak Hadley Ophthalmology in [place] [facility] [place] [address] [place] [address] [address] [place] [phone] (Wo rk) Social History Tobacco Use Types [...]
--- OUTSIDE RECORDS SUMMARY | 2021-10-24 10:29 | XMS_ITS | Encounter Summary ---
:1945 Author Organization [facility] Address [address] [place] [address] Care Team Providers Name Role Phone Unavailable Primary Care Provider Unavailable Encounter Details Date Type Department Care Team Description 01/07/2019 Clinical Communication Department of Jsoi Pittman, Ophthalmology in [address] [address] [phone] Social History Tobacco Use Types Packs/Day Years [...]
--- OUTSIDE RECORDS SUMMARY | 2021-10-24 10:29 | XMS_ITS | Encounter Summary ---
:1945 Author Organization [facility] Address [address] [place] [address] Care Team Providers Name Role Phone Unavailable Primary Care Provider Unavailable Reason for Referral Outpatient (Routine) - Closed Specialty Diagnoses / Procedures Referred By Contact Refer red To Contact Cardiovascular Disease Vignesh Currie [facility] [place] M.D. [address] [place] [phone] Referral ID Status Reason Start Date Expiration Date Visits Requ ested Visits Authorized [id number] Closed 07/29/2018 07/29/2019 1 1 Reason for Visit Reason Comments Follow-up Outpatient (Routine) - Closed Specialty Diagnoses / Procedures Referred By Contact Refer red To Contact Cardiovascular Disease Vignesh Currie [facility] [place] M.D. [address] [place] [phone] Referral ID Status Reason Start Date Expiration Date Visits Requ ested Visits Authorized [id number] Closed 04/26/2018 04/26/2019 1 1 Encounter Details Date Type Department Care Team Description 07/29/2018 Office Visit Department of Vignesh Currie art Chronic Disease (Primary Dx); Cardiovascular Diseases Lee Lance Diabetes Mellitus Type 2 (HCC); in [place], [address] [place] [address] [address] [address] [place], [place] [phone] (Work) [phone] Social History Tobacco Use Types Packs/Day Years [...] Marcial is a pleasant 73-year-old female from [place], [place]. She is known to me from [facility] back in April. At that time, she identified dyspnea with exertion and some occasional shoulderand neck tightness. She was counseled on a graduated walking program. With this, her dyspnea and neck and shoulder discomfort have improved. She has, however, noticed some increased leg tightness. Thisis not effort limiting and she is able [...] dose of Crestor. Unfortunately, this has been temporallyrelated to some mild leg cramping with walking. This is not effort limiting and she is able to walk t hrough this. I think it is worth a [...] consultation with greater than 50% in direct lswt-dm-eeet counseling. CT CT Job ID: [id number]/imx documented in this encounter Plan of Treatment [...]
--- OUTSIDE RECORDS SUMMARY | 2021-10-24 10:29 | XMS_ITS | Encounter Summary ---
:1945 Author Organization [facility] Address [address] [place] [address] Care Team Providers Name Role Phone Unavailable Primary Care Provider Unavailable Reason for Visit Reason Comments Decreased Visual Acuity Appointment Request (Routine) - Closed Specialty Diagnoses / Procedures Referred By Contact Refer red To Contact Ophthalmology Referral ID Status Reason Start Date Expiration Date Visits Requ ested Visits Authorized [id number] Closed 06/29/2019 06/28/2020 1 1 Encounter Details Date Type Department Care Team Description 07/18/2019 Office Visit Department of Nakita Hadleyphaphilip Le (Primary Dx); Ophthalmology in [facility] Janak Moe M.D. Blepharitis Right; [place], [place] [address] Other Subjective Visual Disturbances [address] [place] [phone] Social History Tobacco Use Types Packs/Day Years [...] emboli. Can try artificial tears upon awakening tosee if that helps, if anything tear meniscus [...]
--- OUTSIDE RECORDS SUMMARY | 2021-10-24 10:29 | XMS_ITS | Encounter Summary ---
:1945 Author Organization [facility] Address [address] [place] [address] Care Team Providers Name Role Phone Unavailable Primary Care Provider Unavailable Encounter Details Date Type Department Care Team Description 06/29/2019 Clinical Communication Department of Josi Pittman, Ophthalmology in [address] [phone] Social History Tobacco Use Types Packs/Day Years [...] intermittently, sometimes twice per day, sometimes not atall. Patient denies her eyes to water, there is no crusting, no itching of the eyelids, no foreign body sensation, no light sensitivity. Patient has some occasional itching of the eye ball but her eyesare not red. She does report her eyes to fatigue with extended sessions of sewing. Patient is statuspost cataract. Patient is a diabetic. She controls her diabetes with both oral and injectable medication. She is followed by an supreme court judge. Her last a1c was 8.5 on 06/01/19. [...] schedule and agrees to cancel her appointment shouldher symptoms improve. Has patient called or presented with the same symptom previously yes - 02/24/19 ophthalmology note Is patient experiencing other symptoms: no The following references were used: nursing clinical judgement and [email or web address] Education provided: patient/caller able to teach back Disposition/Recommendation: self-care as stated above appropriate at this time, patient encouraged to call back with questions Caller agreeable to plan of care: yes The following individuals participated in today???s interaction: patient Cafeteria Director used: no Additional concerns addressed: none documented in this encounter Plan of Treatment Not on filedocumented as of this encounter Visit Diagnoses Not on filedocumented in this encounter Additional Health Concerns Assessment Noted Time PHQ-9 Depression Total Score: 7 06/21/2014 9:20 AM CDT documented as of this encounter
--- OUTSIDE RECORDS SUMMARY | 2021-10-24 10:29 | XMS_ITS | Encounter Summary ---
:1945 Author Organization [facility] Address [address] [place] [address] Care Team Providers Name Role Phone Unavailable Primary Care Provider Unavailable Encounter Details Date Type Department Care Team Description 07/27/2018 Hospital Encounter Department of Jenny Hayes, Olu lipidemia; Radiology in [place] Arthritis Rheumatoid (HCC); [place], [place] [address] Coronary Artery Disease [place]; [address] [place] [address] Diabetes Mellitus Type 2 (HC C) [place] [phone] Social History Tobacco Use Types Packs/Day [...] Arthritis Rheumatoid procedu re are in the ([facility]) results section. Coronary Artery Disease [place] [facility] Diabetes Mellitus Type 2 ([facility]) documented in this encounter Results ECG 12 Lead (07/27/2018 10:08 AM CDT) P athologist Signature Ventricular Rate 83 BPM MUSE ECG/Min NV Interval 144 ms MUSE QRSD Interval 84 ms MUSE QT Interval 362 ms MUSE QTC Interval 425 ms MUSE P Mcclure 62 degrees MUSE R Mcclure -20 degrees MUSE T Wave Mcclure 79 degrees MUSE Specimen Anatomical Collection Method [...] Hyperlipidemia Arthritis Rheumatoid (HCC) Coronary Artery Disease [place] Diabetes Mellitus Type 2 (HCC) documented in this encounter Additional Health Concerns Assessment Noted Time PHQ-9 Depression Total Score: 7 06/21/2014 9:20 AM CDT documented as of this encounter
--- OUTSIDE RECORDS SUMMARY | 2021-10-24 10:29 | XMS_ITS | Encounter Summary ---
:1945 Author Organization [facility] Address [address] [place] [address] Care Team Providers Name Role Phone Unavailable Primary Care Provider Unavailable Reason for Visit Reason Comments Follow-up Outpatient (Routine) - Closed Specialty Diagnoses / Procedures Referred By Contact Refer red To Contact Cardiovascular Disease Vignesh Currie [facility] [place] [facility] M.D. [address] [place] [phone] Referral ID Status Reason Start Date Expiration Date Visits Requ ested Visits Authorized [id number] Closed 11/03/2019 11/02/2020 1 1 Encounter Details Date Type Department Care Team Description 12/15/2019 Office Visit Department of Vignesh Currie Diabetes Me llitus Type 2 (HCC) (Primary Dx); Cardiovascular Diseases Lee Lance Coronary Stent Status Post; in [place], [address] [place] [address] Hyperlipidemia Mixed [place] [address] [address] [place], [place] [phone] (Work) [phone] Social History Tobacco Use Types Packs/Day Years [...] Marcial is a pleasant 74-year-old female from [place], [place]. She is known to me from [...] October. She had previously worked with the science specialist at [facility] [place], but had since transitioned to working with her primary provider, Dr. Vazquez. She has additional comorbidities of rheumatoidarthritis on leflunomide, hyperlipidemia with excellent LDL control [...] in 2014, I would favor a more aggressive management. Specifically, I would favor the use of drugs with proven cardiovascular benefit such as SGLT-2 inhibitors or GLP-1 receptor agonist. Marcial would [...] insulin levels. She reports the majority of her fasting glucose is in the 100-130 mg/dL range with a rare reading books as low as 70 mg/dL. She takes her basalinsulin at night. She does not check postprandial glucose levels. Forty minutes in consultation. Vignesh Currie M.D. CT CT Job ID: [id number]/[facility] documented in this encounter Plan of Treatment Not on filedocumented as of this encounter Visit Diagnoses Diagnosis Diabetes Mellitus Type 2 (HCC) - Primary Coronary Stent Status Post Hyperlipidemia Mixed documented in this encounter Additional Health Concerns Assessment Noted Time PHQ-9 Depression Total Score: 7 06/21/2014 9:20 AM CDT documented as of this encounter
--- OUTSIDE RECORDS SUMMARY | 2021-10-24 10:29 | XMS_ITS | Encounter Summary ---
:1945 Author Organization [facility] Address [address] [place] [address] Care Team Providers Name Role Phone Unavailable Primary Care Provider Unavailable Encounter Details Date Type Department Care Team Description 02/02/2018 Hospital Encounter Department of Adriaen Patel, [place] Inguinal Radiology in [place], [place] [facility] [address] [place] [phone] Social History Tobacco Use Types Packs/Day Years [...]
--- OUTSIDE RECORDS SUMMARY | 2021-10-24 10:30 | XMS_ITS | Encounter Summary ---
:1945 Author Organization [facility] Address [address] [place] [address] Care Team Providers Name Role Phone Unavailable Primary Care Provider Unavailable Encounter Details Date Type Department Care Team Description 07/29/2016 Hospital Encounter HX [facility] [place] B[facility] DENS Elizabeth Patel, C.N.P. [address] [place] [address] (Wo rk) Social History Tobacco Use Types [...] Summary-Paper Based CODING DATE: 08/01/2016 FINAL [place] [facility] STATUS: * Discharged to Home or [...] WARD Date Saved: 08/01/2016 12:05 pm Source: [place] Document Id: [id number] documented in this encounter Plan of Treatment Not on filedocumented as of this encounter Visit Diagnoses Not on filedocumented in this encounter Additional Health Concerns Assessment Noted Time PHQ-9 Depression Total Score: 7 06/21/2014 9:20 AM CDT documented as of this encounter
--- OUTSIDE RECORDS SUMMARY | 2021-10-24 10:30 | XMS_ITS | Encounter Summary ---
:1945 Author Organization [facility] Address [address] [place] [address] Care Team Providers Name Role Phone Unavailable Primary Care Provider Unavailable Encounter Details Date Type Department Care Team Description 09/01/2016 Hospital Encounter HX [facility] CARDIOLOG Mahesh Bates M.D., Ph.D. [address] [place] [address] (Wo rk) Social History Tobacco Use Types [...] M.D., Ph.D. - 09/01/2016 10:56 AM CDT [facility] Suresh Patel. I have met with Mrs. Adams for a consultation regarding episodes of lightheadedness. I have reviewedthe documentation kindly provided by Suresh Patel. I have reviewed also the available blood work andthe available data in the electronic medical record. Mrs. Adams is a 71-year-old patient who has a history of coronary artery disease status post stenting of the LAD. She was actually seen by my colleague, Dr. Amato in June 2016. At that time sheforgot to discuss the lightheadedness spells she experiences now. She went on and discussed this with Suresh Patel. She mentions that almost every other day she has spells where we she would feel a little unsteady. She does not have vertigo, being quite specific about this. The triggering factors are variable, sometimes just looking down, sometimes just while she is standing all of a sudden she feelsthe need to steady herself. She never had passing out spells. She did check the blood pressure and heart rhythm on several occasions with these spells. Whenever she gets to do that, the systolic valuesare in the 130s and the heart rates [...] most recent one in January 2015. She had some runs of AIVR. I am noting that just after that she underwent stenting of the LAD. When discussing further with Mrs. Adams she tells me that she also has fatigue and she sleeps poorlyat night. Suresh considered screening for sleep apnea. She also considered Neurology evaluation for her symptoms. The patient also describes frequent nightmares. It was felt that perhaps her very low LDL levels could be contributing to that and she was taken off atorvastatin. She had some night terrorsstill. PAST MEDICAL/SURGICAL HISTORY 1. Coronary artery disease, [...] her main concern. The fact that they occurwhen she changes position of the head or she looks down argues against a cardiac mechanism. She doesnot have major focal deficits, but she noted [...] Neurology consultation. I think it would be reasonableto perform a 24-hour Holter and a screening [...] to have those she should probably go back to a statin given her diabetes and coronary disease. Mohan Bates M.D./gene Electronically Signed By: MOHAN BATES MD On: 09/22/2016 04:01 PM Source: [facility] MHSDOLBEYNONRADSYS Document Id: [id number] documented in this encounter Nursing Notes Andrea Malhotra R.N. - 09/11/2016 1:54 PM CDT cardiology Copy of overnight oximetry and holter monitor were given to Kenia jurado [facility] to be sent to [facility] in [place]. Electronically Signed By: ANDREA MALHOTRA RN On: 09/11/2016 01:55 PM Modified by and Electronically Signed by: ANDREA MALHOTRA RN On: 09/11/2016 01:55 PM Source: [facility] Document Id: [id number] Andrea Malhotra R.N. - 09/02/2016 9:52 AM CDT cardiology notes Copy of Dr. Bates's cardiology note of yesterday was given to Kenia jurado [facility] to be sent to Suresh Patel at [facility]. Electronically Signed By: ANDREA MALHOTRA RN On: 09/02/2016 09:53 AM Modified by and Electronically Signed by: ANDREA MALHOTRA RN On: 09/02/2016 09:53 AM Source: [employer] Document Id: [id number] documented in this encounter Miscellaneous Notes Miscellaneous - Andrea Malhotra R.N. - 09/11/2016 1:52 PM CDT *General Message From: ANDREA MALHOTRA RN To: ANDREA MALHOTRA RN; Sent: 09/11/2016 13:52:21 CDT Subject: *General Message Lázaro Bates, the overnight oximetry and holter monitor are available for you to review on Marcial Adams. Toi Adams Source: [employer] Document Id: [id number] Miscellaneous - Andrea Malhotra R.N. - 09/02/2016 10:00 AM CDT *General Message From: ANDREA MALHOTRA RN To: OCTAVIA BERGERON; Sent: 09/02/2016 10:00:46 CDT Subject: *General Message Dr. Ten Portillo ordered an overnight oximetry for Marcial. Toi Adams Source: [employer] Document Id: [id number] Electronically signed by Conversion, [facility] CampusThesan Pharmaceuticals Operations Consultant [id number] at 09/03/2016 7:04 AM CDT Miscellaneous - Andrea Malhotra R.N. - 09/01/2016 11:04 AM CDT Adult Clinical Data Research Intake/History Adult Clinical Data Research Intake/History Entered On: 09/01/2016 11:08 CDT Performed On: 09/01/2016 11:04 CDT by ANDREA MALHOTRA RN Intake Chief Complaint : Here for follow-up Onset of Symptoms : Problems with lightheadedness and dizziness. Problems with balance. No chest pain, SOB or edema. Shoulder pain - wondering [...] Preferred Communication Mode : Verbal Languages : Italian Is Patient Female and 13-50 no hysterectomy [...] MALHOTRA RN - 09/01/2016 11:04 CDT Source: [employer] Document Id: [id number] CDT!43 documented in this encounter Plan of Treatment Not on filedocumented as of this encounter Visit Diagnoses Not on filedocumented in this encounter Additional Health Concerns Assessment Noted Time PHQ-9 Depression Total Score: 7 06/21/2014 9:20 AM CDT documented as of this encounter
--- OUTSIDE RECORDS SUMMARY | 2021-10-24 10:30 | XMS_ITS | Encounter Summary ---
:1945 Author Organization [facility] Address [address] [place] [address] Care Team Providers Name Role Phone Unavailable Primary Care Provider Unavailable Encounter Details Date Type Department Care Team Description 12/10/2015 Hospital En[facility] M[facility] [address] [place] [phone] (Wo rk) Social History Tobacco Use [...] VISIT Pre op for cataract surgery in [place] Left eye 12/19/15, right eye 01/09/16 flu shot compare glucose reading with home meter HISTORY OF PRESENT ILLNESS Marcial presents for a preop exam prior to undergoing cataract surgery in [place] on 12/18 and 01/08. She has never had any problems with anesthesia, bleeding, or blood clots. Her blood sugar meter was checked against ours today and there was [...] Anxiety disorder NOS Coronary Artery Disease (CAD) [place] [facility] Hyperlipidemia/Dyslipidemia Hypothyroidism NOS NIDDM [non-insulin dependent [...] pain, history of heart murmur, DVT or PE.There is no edema. GI: Patient denies swallowing [...] 143 / 55 SpO2: 99% HT: 160.5 cm WT: 85.7 kg BMI: 33.27 PHYSICAL EXAMINATION General: [...] lisinopril the morning of the procedure. She was advised to continue the Plavix. Patient is deemed medically optimized for this procedure. Ordered: OV Est Pt Level 4 - 59804 - 25 min 2. DM2 Meter is running a little high compared to ours. Discussed with patient that when she checks her blood sugar, she can subtract around 50 points to determine what her sugar really is. We are going to continue the same meds at this time. Ordered: OV Est Pt Level 4 - 09227 - 25 min FOOTNOTES [1]Clinic Full Note; NE VILLAR MD 07/24/2014 14:02 CDT Electronically Signed By: NE VILLAR MD On: 12/12/2015 02:20 PM Source: [employer] Document Id: [id number] documented in this encounter Miscellaneous Notes Miscellaneous - Conversion, Historical Provider Ser - 03/07/2016 4:08 PM ONLINE ADVERTISING ANALYST *General Message From: COLT VIGIL To: [place] Colonoscopy Pool; Sent: 03/07/2016 16:08:37 ONLINE ADVERTISING ANALYST Subject: *General Message Please check patient Source: [employer] Document Id: [id number] Miscellaneous - Belen Lovelace - 03/06/2016 11:38 AM CST Custom Result Letter March 06, 2016 MARCIAL BAZAN [address] [place] [id number] Dear MARCIAL BAZAN, [facility] would like to better assist you with [...] 2016 This document has images extracted. Source: [facility] Document Id: [id number] [place] - Cliff Rodriguez R.N. - 02/26/2016 3:34 PM CST *General Message From: CLIFF RODRIGUEZ RN ([place] Colonoscopy Pool) To: [place] Colonoscopy Pool; Sent: 02/26/2016 15:34:45 ONLINE ADVERTISING ANALYST Subject: *General Message Due Date/Time: 01/03/2019 15:34:00 ONLINE ADVERTISING ANALYST due 01/03/2019 Source: [facility] Document Id: [id number] Dio - Octavia Diaz - 12/13/2015 8:14 [...] RE: CAROLE Nystatin/triamcinolone 2 scripts sent to [facility]. From: OCTAVIA DIAZ To: NE VILLAR MD; [...] can send that to insurance. Thanks. Source: [facility] POWERCHART Document Id: [id number] Electronically signed by Sae, [facility] Conveyor Belt Operator [id number] at 07/13/2016 11:08 AM CDT Miscellaneous - Ne Cortez M.D. - 12/10/2015 11:05 AM CDT Ambulatory Patient Summary [address] [id number] Visit Information Name: MARCIAL BAZAN [facility] Number: [id number] Current Date: 12/10/2015 11:05:02 Physicians Attending Provider: NE VILLAR MD Primary Care Provider: NE VILLAR MD ELIDASTEVENJOSE MIGUELPATRICK PAU has been given the following list [...] day as needed forRash New Routed to [address] [address] clopidogrel (Plavix 75 mg oral [...] as needed for Rash New Routed to [address] [address] Stop Taking the Following Medications: [...] Stress Test Active Coronary Artery Disease (CAD) [place] [facility] Active Your Upcoming Appointments Date Time Location Provider No Appointments found Attention: Contact your local Clinic if further appointment detail needed. Consider Using Patient Online Services Patient Online Services is a secure online and Mobile application that lets you: ?? View lab and test results ?? View portions of your medical record including clinical notes, immunizations and discharge summaries ?? Request an appointment or medication refill ?? Review your appointment schedule ?? Send secure messages to your care team Its easy to create an account if you dont have one. Go to [email or web address] and click on Create Your Account. Then, follow the directions to complete the online form. Youll be asked for your [facility] number which you can find at the top of this document. Your Goals/Additional instructions: Source: [facility] POWERCHART Document Id: [id number] Miscellaneous - Ne Cortez M.D. - 12/10/2015 11:05 AM CDT Ambulatory Discharge Medication List [address] [place] [id number] Visit Information Name: MARCIAL BAZAN [facility] Number: [id number] Current Date: 12/10/2015 11:05:00 Attending Provider: NE VILLAR MD Primary Care Provider: NE IVLLAR MD MARCIAL BAZAN has been given the [...] Topical, two times a day as needed [facility] Routed to [place] [id number] clopidogrel (Plavix 75 mg oral tablet) 1 [...] as needed for Rash New Routed to [address] [address] Stop Taking the Following Medications: Medication list [...] MD Signed On:10-DEC-2015 11:00:45 Additional Information: Source: [facility] [employer]CHART Document Id: [id number] Dio - Azra Blandon, L.P.N. - 12/10/2015 10:26 AM CDT *General Message From: AZRA BLANDON LPN ([place] Family Medicine Nurse Scotty) To: NE VILLAR [...] new glucometer be sent to pharmacy. Source: [facility] POWERCHART Document Id: [id number] Electronically signed by Sae [facility] Conveyor Belt Operator [id number] at 07/13/2016 11:08 AM CDT Azra Badillo, L.P.N. - 12/10/2015 10:06 AM CDT Obstructive Sleep Apnea Obstructive Sleep Apnea Entered On: 12/10/2015 10:07 CDT Performed On: 12/10/2015 10:06 CDT by AZRA BLANDON LPN JUAN Screening Known Obstructive Sleep Apnea : No - NOT diagnosed with JUAN JUAN Score : No qualifying data available. JUAN Results : No qualifying data available. AZRA BLANDON LPN - 12/10/2015 10:06 CDT JUAN Assessment [...] Clinical Score HTN Calc : 8 AZRA BLANDON LPN - 12/10/2015 10:06 CDT Source: [employer] Document Id: [id number] CDT!12 Miscellaneous - Azra Blandon L.P.N. - 12/10/2015 10:01 AM CDT Adult Trash Hauler Intake/History Adult Trash Hauler Intake/History Entered On: 12/10/2015 10:05 CDT Performed On: 12/10/2015 10:01 CDT by AZRA BLANDON LPN Intake Chief Complaint : Pre op for cataract surgery in [place] Left eye 12/19/15, right eye 01/09/16 flu [...] : 41.5 cm(Converted to: 16 inch(es)) AZRA BLANDON LPN - 12/10/2015 10:01 CDT General Info Information Given By : Patient Languages : Nepali Is Patient Female and 13-50 no hysterectomy : No AZRA BLANDON LPN - 12/10/2015 10:01 CDT Subjective Pain Symptoms : No AZRA BLANDON LPN - 12/10/2015 10:01 CDT Dependent Habits Exposure to Tobacco Smoke : Care provider denies smoking in home, Other: never Smoking Status : Never smoker Tobacco 2A : No Tobacco Use/Currently Using : No Tobacco Use/Last 30 Days : No Tobacco Use/Last 12 months : No Alcohol Use : No AZRA BLANDON LPN - 12/10/2015 10:01 CDT Caffeine Use Grid Caffeine Use : Past Type : Coffee Frequency : Occasionally Amount : 2 cup per week AZRA BLANDON LPN - 12/10/2015 10:01 CDT Recreational Drug Use Grid Drug Use : None AZRA BLANDON LPN - 12/10/2015 10:01 CDT Source: [employer] Document Id: [id number] CDT!44 Miscellaneous - Azra Blandon, L.P.N. - 12/10/2015 9:58 AM CDT Health Assessment Health Assessment Entered On: 12/10/2015 9:59 CDT Performed On: 12/10/2015 9:58 CDT by AZRA BLANDON LPN Health Assessment Complete Health Assessment Complete or Modified : Annual Health Assessment Annual Health Assessment Completed : Yes AZRA BLANDON LPN - 12/10/2015 9:58 CDT Nutrition Nutrition Risk Factors by History Adult : None AZRA BLANDON LPN - 12/10/2015 9:58 CDT Functional Current Daily Living Assistance : None AZRA BLANDON LPN - 12/10/2015 9:58 CDT Dependent Habits Exposure to Tobacco Smoke : Care provider denies smoking in home, Other: never Smoking Status : Never smoker Tobacco 2A : No Tobacco Use/Currently Using : No Tobacco Use/Last 30 Days : No Tobacco Use/Last 12 months : No Alcohol Use : No AZRA BLANDON [facility] - 12/10/2015 9:58 CDT Caffeine Use Grid Caffeine Use : Past Type : Coffee Frequency : Occasionally Amount : 2 cup per week AZRA BLANDON [facility] - 12/10/2015 9:58 CDT Recreational Drug Use Grid Drug Use : None AZRA BLANDON [facility] - 12/10/2015 9:58 CDT Psychosocial Domestic Abuse Concerns : None Behavioral Health Screen/Safety Assmt : No Shinto Preference : [place] AZRA BLANDON [facility] - 12/10/2015 9:58 CDT Advance Directive Advanced Directives : No Advance Directive Additional Information : No AZRA BLANDON [facility] - 12/10/2015 9:58 CDT Educ Needs Learning Style Preference Adult Grid Patient : Demonstration, Printed materials, Verbal explanation, Video/Educational TV Family : None AZRA BLANDON [facility] - 12/10/2015 9:58 CDT Source: [facility] [employer]CHART Document Id: [id number] CDT!36 documented in this encounter Plan of [...] 140 POWERCHART B MGDL Comment: Analyzed By [id number] Barber Oquendo Performed at [facility] [address] [place], [place] ??[address] Specimen Anatomical Collection Method Collection Time Receive d Time (Source) Location / / Volume Laterality Blood 12/10/2015 10:12 12/10/2015 AM CDT 10:12 AM CDT Ne Haas M.D. LAB POCT ORDERABLES-MAN UAL Performing Organization Address City/State/ZIP Code Phon e Number POWERCHART documented in this encounter Visit Diagnoses Not on filedocumented in this encounter Additional Health Concerns Assessment Noted Time PHQ-9 Depression Total Score: 7 06/21/2014 9:20 AM CDT documented as of this encounter
--- OUTSIDE RECORDS SUMMARY | 2021-10-24 10:30 | XMS_ITS | Encounter Summary ---
:1945 Author Organization [facility] Address [address] [place] [address] Care Team Providers Name Role Phone Unavailable Primary Care Provider Unavailable Encounter Details Date Type Department Care Team Description 09/03/2016 Hospital [facility] Mahesh Peraza M.D., Ph.D. [address] [place] [address] (Wo rk) Social History Tobacco Use Types [...]
--- OUTSIDE RECORDS SUMMARY | 2021-10-24 10:30 | XMS_ITS | Encounter Summary ---
:1945 Author Organization [facility] Address [address] [place] [address] Care Team Providers Name Role Phone Unavailable Primary Care Provider Unavailable Encounter Details Date Type Department Care Team Description 07/27/2015 Hospital Encounter [facility]X [facility] Gail Ge M.D. [address] [phone] (Wo rk) Social History Tobacco [...] Summary-Paper Based CODING DATE: 07/30/2015 FINAL [place] [facility] STATUS: * Discharged to Home or [...] CHAN Date Saved: 07/30/2015 10:50 am Source: [place] Document Id: [id number] documented in this encounter Plan of Treatment Not on filedocumented as of this encounter Visit Diagnoses Not on filedocumented in this encounter Additional Health Concerns Assessment Noted Time PHQ-9 Depression Total Score: 7 06/21/2014 9:20 AM CDT documented as of this encounter
--- OUTSIDE RECORDS SUMMARY | 2021-10-24 10:30 | XMS_ITS | Encounter Summary ---
:1945 Author Organization [facility] Address [address] [place] [address] Care Team Providers Name Role Phone Unavailable Primary Care Provider Unavailable Encounter Details Date Type Department Care Team Description 01/12/2017 Abstract Department of Neurological Provider, Hist orical Surgery in [address] [phone] Social History Tobacco Use Types Packs/Day [...]
--- OUTSIDE RECORDS SUMMARY | 2021-10-24 10:30 | XMS_ITS | Encounter Summary ---
:1945 Author Organization [facility] Address [address] [place] [address] Care Team Providers Name Role Phone Unavailable Primary Care Provider Unavailable Encounter Details Date Type Department Care Team Description 09/02/2016 Hospital En[facility] Mohan Germain M.D., Ph.D. [address] [place], [place] [phone] (Wo rk) Social History [...] Summary-Paper Based CODING DATE: 09/08/2016 FINAL CA [facility] STATUS: * Discharged to Home or Self Care PAYOR: Medicare ADMIT DX: REASON FOR VISIT DX: FINAL DX: PRINCIPAL: R42 Dizziness and giddiness SECONDARY: I25.10 Atherosclerotic heart disease of [place] coronary artery without angina pectoris R06.02 Shortness of breath PROCEDURES DOCTOR NAME DATE NOTE: The code number assigned matches the documented diagnosis and / or procedure in the patient's chart. However, the narrative phrase printed from the coding software may appear abbreviated, or result in slightly different terminology. Coded By: SERGIO COTTO Date Saved: 09/08/2016 06:04 pm Source: [employer] POWERCHART Document Id: [id number] documented in this encounter Plan of Treatment Not on filedocumented as of this encounter Visit Diagnoses Not on filedocumented in this encounter Additional Health Concerns Assessment Noted Time PHQ-9 Depression Total Score: 7 06/21/2014 9:20 AM CDT documented as of this encounter
--- OUTSIDE RECORDS SUMMARY | 2021-10-24 10:30 | XMS_ITS | Encounter Summary ---
:1945 Author Organization [facility] Address [address] [place] [address] Care Team Providers Name Role Phone Unavailable Primary Care Provider Unavailable Encounter Details Date Type Department Care Team Description 07/04/2015 Hospital Encounter [facility] Ne gamez M.D. [address] [place] [phone] (Wo rk) Social History Tobacco Use [...] documented as of this encounter Progress Notes Di London R.N. - 07/04/2015 2:20 PM CDT Medicare Wellness Visit Document Has Been Updated Medicare Wellness Visit Entered On: 07/04/2015 14:39 CDT Performed On: 07/04/2015 14:20 CDT by DI LONDON RN Health Assessment Med [facility] Reason for visit : Subsequential Annual Wellness Visit Languages : Indian Systolic Blood Pressure : 120 mmHg Diastolic Blood Pressure : 80 mmHg BP Location : Left upper extremity Blood Pressure Cuff Size : Large Weight Source : Standing scale Height : 161 cm(Converted to: 5 ft 3 inch(es), 63 inch(es)) Actual Weight : 85.7 kg(Converted to: 188 lb 15 oz) Body Mass Index : 33.06 kg/m2 Clinic BSA : 1.96 DI LONDON RN - 07/04/2015 14:20 CDT Subjective [...] 4 months ago and she goes every 6 months DI LONDON RN - 07/04/2015 14:45 CDT Pain Symptoms : No DI LONDON RN - 07/04/2015 14:20 CDT JUAN [...] Apnea Clinical Score HTN Calc : 8 DAYLINDONNYDI MARRUFO ANUEL GIRARD - 07/04/2015 14:45 CDT Allergy Latex Reaction : No Latex Hives/Itch : No Latex Congestion/Eye Irr/Breathing : No Latex Symptom Progression : No Latex Previous Test : No SURYA DI ANUEL GIRARD - 07/04/2015 14:45 CDT (As Of: 07/04/2015 [...] Meds additional comment : refills from the [facility]-Uses a pill senior planner SURYA DI ANUEL GIRARD - 07/04/2015 14:45 CDT Medication List (As Of: 07/04/2015 16:01:30 CDT) Prescription/Discharge Order ALPRAZolam : ALPRAZolam ; Status: Prescribed ; Ordered As Mnemonic: Xanax 0.5 mg oral tablet ; Simple Display Line: 0.5 mg, 1 tab(s), PO, q8hr, Take for anxiety., PRN: Anxiety, 25 tab(s), 1 Refill(s) ;Ordering Provider: NE BONILLA MD; Catalog Code: ALPRAZolam ; Order Dt/Tm: 04/05/201506:01:29 ; Comment: kendy metoprolol : metoprolol ; Status: Prescribed ; Ordered As Mnemonic: metoprolol succinate 25 mg oral tablet, extended release ; Simple Display Line: 12.5 mg, 0.5 tab(s), PO, Daily, 45 tab(s), 3 Refill(s) ; Ordering Provider: ROMI [...] Status: Prescribed ; Ordered As Mnemonic: clindamycin 1%topical gel ; Simple Display Line: 1 shauna, Topical, 2xDay, rosacea, 30 gm, 3 Refill(s) ; Ordering Provider: NE VILLAR MD; Catalog Code: clindamycin topical ; Order Dt/Tm: 07/24/2014 10:38:21 aspirin : aspirin ; Status: Prescribed ; Ordered As Mnemonic: aspirin 81 mg oral tablet ; Simple Display Line: 81 mg, 1 tab(s), PO, Daily, Take with food for heart health., 30 tab(s) ; Ordering Provider: VICKEY HOLT DNP, COMMUNITY ADVOCATE; Catalog Code: aspirin ; Order Dt/Tm: 03/02/2012 17:14:07 metFORMIN : metFORMIN ; Status: Prescribed ; Ordered As Mnemonic: metFORMIN 500 mg oral tablet, extended release ; Simple Display Line: 1,000 mg, 2 tab(s), PO, Daily, with evening meal, 180 tab(s), 3 Refill(s) ; Ordering Provider: NE BONILLA MD; Catalog Code: metFORMIN ; Order Dt/Tm: 03/29/2015 14:12:15 glipiZIDE : glipiZIDE ; Status: Prescribed ; Ordered As Mnemonic: glipiZIDE 5 mg oral tablet ; Simple Display Line: 5 mg, 1 tab(s), PO, 2xDay, for 90 day(s), 30 minutes before breakfast, 180 tab(s), 3 Refill(s) ; Ordering Provider: NE BONILLA MD; Catalog Code: glipiZIDE ; Order Dt/Tm: 03/30/2015 06:49:38 levothyroxine : levothyroxine ; Status: Prescribed ; Ordered As Mnemonic: levothyroxine 75 mcg (0.075 mg) oral tablet ; Simple Display Line: 75 mcg, 1 tab(s), PO, Daily, for thyroid replacement, 90 tab(s), 3 Refill(s) ; Ordering Provider: NE VILLAR MD; Catalog Code: levothyroxine ; Order [...] Comments: 09/24/2010 11:37 - VICKEY HOLT DNP, COMMUNITY ADVOCATE date unknown ; Last Reviewed Dt/Tm: 02/16/1986 00:00:00 MILL MANAGER Procedure Dt/Tm: 1959 ; Anesthesia Minutes: 0 ; Procedure Name: Appendectomy ; Procedure Minutes: 0; Last Reviewed Dt/Tm: 06/05/1959 00:00:00 CDT Procedure Dt/Tm: 01/03/2009 ; Anesthesia Minutes: 0 ; Procedure Name: Colonoscopy ; Procedure Minutes: 0 ; Comments: 09/18/2010 09:23 - JOHN CONCEPCION LPN WNL ; Last Reviewed Dt/Tm: 01/03/2009 00:00:00 MILL MANAGER Procedure Dt/Tm: 07/06/2002 ; Anesthesia Minutes: 0 ; Procedure Minutes: 0 ; Last Reviewed Dt/Tm: 07/06/2002 00:00:00 CDT Procedure Dt/Tm: 03/22/2001 ; Anesthesia Minutes: 0 ; Procedure Minutes: 0 ; Last Reviewed Dt/Tm: 03/22/2001 00:00:00 MILL MANAGER Procedure Dt/Tm: 06/14/1998 ; Anesthesia Minutes: 0 ; Procedure Minutes: 0 ; Last Reviewed Dt/Tm: 06/14/1998 00:00:00 CDT Procedure Dt/Tm: 01/04/2015 ; Anesthesia Minutes: 0 ; Procedure Name: Exercise stress echocardiography ; Procedure Minutes: 0 ; Last Reviewed Dt/Tm: 01/04/2015 00:00:00 MILL MANAGER Dependent Habits Exposure to Tobacco Smoke : Care provider denies smoking in home, Other: never Smoking Status : Never smoker Tobacco 2A : No Tobacco Use/Currently Using : No Tobacco Use/Last 30 Days : No Tobacco Use/Last 12 months : No Alcohol Use : No DI LONDON RN - 07/04/2015 14:45 CDT Caffeine Use Grid Caffeine Use : Past Type : Coffee Frequency : Occasionally Amount : 2 cup per week Comments (Comment: decaf [DI LONDON RN - 07/04/2015 14:45 CDT] ) DI LONDON RN - 07/04/2015 14:45 CDT Recreational Drug Use Grid Drug Use : None DI LONDON RN - 07/04/2015 14:45 CDT Psychosocial Domestic Abuse Concerns : None Marital Status : Years of Marriage : 50 years Concerns About Family Members at Home : No Number of Children : 2 children 5 grandchildren 3 great grandchildren Emotional Support Available : Yes Financial Concerns : No 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 MMSE=31. DI LONDON RN - 07/04/2015 14:45 CDT Vision Testing [facility] Date of last eye exam : 08/30/2014 CDT [facility] Glaucoma screen : Yes Corrective Lenses : Glasses Eyes, Both with Correction : 20/20 Comments : right eye 20/40 left eye 20/25 DI LONDON RN - 07/04/2015 14:45 CDT Nutrition Nutrition Risk Factors by History Adult : None Home Diet : Regular, Diabetic Meal Pattern : 2-3 meals per day Feeding Ability : Complete independence Eating Difficulties : None Appetite : Excellent DI LONDON RN - 07/04/2015 14:45 CDT Functional [...] Med Well Corrective Devices : Glasses Med [employer] Safety Comment : no falls in the past year Med [employer] Safety Vision Hearing Mobility : Yes DI LONDON RN - 07/04/2015 14:45 CDT Advance Directive Advanced Directives : No Advance Directive Additional Information : No Advance Directive Comments : proviided a copy on an advanced directive and she will be bringing it in DI LONDON RN - 07/04/2015 14:45 CDT Exercise Days/Wk of Moderate or Greater Exercise : 2 Minutes/Day Engaged in Activity : 50 Total Minutes Exercise/Week : 100 Exercise Type : Other: goes to Cardiac rehab DI LONDON RN - 07/04/2015 14:45 CDT Education General Patient Education [employer] Topics : Advance directives, Allergies, Exercise, Immunizations, Importance of follow-up visits, Medication dosage, route, scheduling, Medication generic/brand names, purpose, action, Nutrition/Diet, Oral care, Plan of care, Printed materials, Safety, bathtub, Safety, fall DI LONDON RN - 07/04/2015 16:06 CDT Learning Style Preference Adult Grid Patient : Printed materials, Demonstration, Verbal explanation Family : None DI LONDON RN - 07/04/2015 14:45 CDT Referrals/Recommendations [facility] [employer] Lifestyle goals/modificiations : Continues to be very active with her quilting, caring for her great grand daughter a 4 year old 2 times a week. She is attending Cardiac rehab twice a week andwalking outdoors in between. Mammogram will be coming due in July she will schedule with registration. Eye exam will be due in August. She states that when her eyes become tired and she closes the right eye she sees double out of the left eye. This has not really been explained to her and she is worriedabout it. DI LONDON RN - 07/04/2015 16:06 CDT Med Well Treat Plan Recomm Provider F/U : She will follow up for her routine diabetic follow ups andmammogram in July. One other concern of hers at this visit was that she had some nightmares in the past before her cardiac procedure in the months leading up to it that she could not explain. Since theprocedure however they have not come back. She was seeing things in her sleep omlu not while awake. DI LONDON RN - 07/04/2015 16:15 CDT Preventative Screening : Preventative screening checklist reviewed and updated, Patient provided written preventative screening checklist DI LONDON RN - 07/04/2015 14:45 CDT Source: [facility] POWERCHART Document Id: [id number] CDT!3 documented in this encounter Plan of Treatment Not on filedocumented as of this encounter Visit Diagnoses Not on filedocumented in this encounter Additional Health Concerns Assessment Noted Time PHQ-9 Depression Total Score: 7 06/21/2014 9:20 AM CDT documented as of this encounter
--- OUTSIDE RECORDS SUMMARY | 2021-10-24 10:30 | XMS_ITS | Encounter Summary ---
:1945 Author Organization [facility] Address [address] [place] [address] Care Team Providers Name Role Phone Unavailable Primary Care Provider Unavailable Reason for Visit Physical Therapy (Routine) - Closed Specialty Diagnoses / Procedures Referred By Contact Refer red To Contact Diagnoses Vert[facility] Procedures PT Evaluate and treat Hernan Lance [address] [address] Referral ID Status Reason Start Date Expiration Date Visits Requ ested Visits Authorized [id number] Closed 01/06/2017 07/05/2017 12 12 Encounter Details Date Type Department Care Team Description 01/07/2017 Comprehensive Visit Department of Shahana Meeks D.O. [address] [address] [facility] Carley Yost, P.T. [address] [place] [phone] [phone] Social History Tobacco Use Types [...] reports she has not had that severe symptomsbut reports that when she bends over or when she looks up or turns her head too quickly she doesn't feel right. Is difficult for her to describe her symptoms. She only had the 1 episode of spinning 3-4weeks ago. She does report to disequalibrium or being off balance. She says it is hard to determine whether it is true lightheadedness or dizziness. She does not feel right feels like she might be falling. Has had no falls. She is denying any visual blurring, double vision, nausea or vomiting. Patientdenies a history of tinnitus, Meniere's disease, sudden hearing loss, or pressure fullness in her ears. She does report about a few weeks ago she did go in and have fluid behind her left ear was totally plug today did clean out. Unable to determine whether this was before or after her spinning episode. Patient denies a history of migraines, motion sickness, or motor vehicle accident or trauma. She reports years ago she did bump her head and does have some drooping of the left eye in her chiropractorwas working on that. Reports she has seen a chiropractor since the symptoms have started happened her neck has been stiff. She has had a history of lightheadedness that she has seen cardiology for. She had appointment with neurology earlier this week and they referred her [...] with smooth pursuit, saccades or VOR testing. [place]: Symptomatic with immediate latency and duration [...] over the next 3 weeks. Patient to callif she needs to be seen on Thursday. Otherwise we will plan to follow up with patient on Thursday. Discussed with patient that her goal is that she feels at least 50% better tomorrow and that symptoms willcontinue to improve. She can call with questions. Our plan will be to include canalith repositioningmaneuver and neuromuscular re-education. If patient's symptoms persist [...] or restricted Physician Signature: Date Print Name: AVEMENT COUNSELOR documented in this encounter Plan of Treatment Not on filedocumented as of this encounter Visit Diagnoses Diagnosis Vertigo documented in this encounter Additional Health Concerns Assessment Noted Time PHQ-9 Depression Total Score: 7 06/21/2014 9:20 AM CDT documented as of this encounter
--- OUTSIDE RECORDS SUMMARY | 2021-10-24 10:30 | XMS_ITS | Encounter Summary ---
:1945 Author Organization [facility] Address [address] [place] [address] Care Team Providers Name Role Phone Unavailable Primary Care Provider Unavailable Reason for Visit Reason Onset Date Comments Communication 12/10/2017 colonoscopy and egd needed Encounter Details Date Type Department Care Team Description 12/10/2017 Clinical Department of Magdalena Patel Communicatio n Communication Neurology in [place] (colonoscopy and egd [address] needed) [address] [place] [phone] Social History Tobacco Use Types Packs/Day Years [...] - 12/10/2017 2:19 PM CDT Fax from [place] in [place], Adriane Patel PERFORMANCE IMPROVEMENT CONSULTANT , phone [phone], fax [phone] requesting EGD and colonoscopy. Dx listed is [...]
--- OUTSIDE RECORDS SUMMARY | 2021-10-24 10:30 | XMS_ITS | Encounter Summary ---
:1945 Author Organization [facility] Address [address] [place] [address] Care Team Providers Name Role Phone Unavailable Primary Care Provider Unavailable Encounter Details Date Type Department Care Team Description 01/12/2017 Clinical Support Department [facility]Shahana Alcala D.O. [address] [address] [facility] in Carley Yost P.TJairo [address] [place] [phone] [address] [phone] Social History Tobacco Use [...] Comments Blood Pressure 140/63 01/12/2017 1:56 PM SOUND MIXER Pulse - - Temperature - - Respiratory [...] notes today that the lightheadedness is worse than it n ormally is. Notices it most when she gets [...] were WNL but was slowed with VOR and had decreased focus. Added VOR to her home program. Educated patient on VOR and incidence of it afterepisodes of vertigo. Spent time with patient discussing [...] positional vertigo is resolved. Anticipate that by addingVOR and increasing fluid intake her symptoms will resolve. Her has surgery this week. If shecontinues to feel off balance will plan to [...] Time (min): 29 min Functional G-code Worksheet D MIXER documented in this encounter Plan of Treatment Not on filedocumented as of this encounter Visit Diagnoses Diagnosis Vertigo documented in this encounter Additional Health Concerns Assessment Noted Time PHQ-9 Depression Total Score: 7 06/21/2014 9:20 AM CDT documented as of this encounter
--- OUTSIDE RECORDS SUMMARY | 2021-10-24 10:30 | XMS_ITS | Encounter Summary ---
:1945 Author Organization [facility] Address [address] [place] [address] Care Team Providers Name Role Phone Unavailable Primary Care Provider Unavailable Encounter Details Date Type Department Care Team Description 07/07/2016 Hospital Encounter HX [facility] Erik Macario M.D. [address] [place], [place] [address] (Wo rk) Social History [...] CDT [facility] Adriane Patel APRN, ARTIFICIAL INTELLIGENCE SPECIALIST, [facility] CHIEF COMPLAINT/REASON FOR VISIT Follow up on [...] shortness of breath with an initially negative stresstest, but low workload, which continued to raise suspicion for a potential coronary etiology. 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 The best part is that she had essentially resolution of those index symptomsand has done well since then with optimal [...] The most recent laboratory values obtained from [facility] dated June 26, 2016, are her uric acid which is elevated at 7.6, and a C-reactive protein which was elevated at 12. The reason for that elevation is a recent episode of gout that has been appropriately treated. Her ESR was also elevated at 64. I did review 12-lead ECG from our colleagues at [facility], which shows normal sinus rhythm, no evidence [...] actually to obtain a lipid panel was based on the fact that the level may be [...] and do not portent any adverse prognostic signal, atleast with the science that we have so [...] GAN MD On: 08/03/2016 02:58 PM Source: [facility] MHSDOLBEYNONRADSYS Document Id: [id number] documented in this encounter Miscellaneous Notes Miscellaneous - Annie Jones, R.N. - 07/07/2016 1:39 PM CDT Adult Roller Repairer Intake/History Document Has Been Updated Adult Roller Repairer Intake/History Entered On: 07/07/2016 13:43 CDT Performed On: 07/07/2016 13:39 CDT by ANNIE JONES skoog patching machine operator Peripheral Pulse Rate : 78 /min Heart [...] Information Given By : Patient Languages : Lao Is Patient Female and 13-50 no hysterectomy [...] JONES RN - 07/07/2016 13:39 CDT [facility] Document Id: [id number] CDT!44 documented in this encounter Plan of Treatment Not on filedocumented as of this encounter Visit Diagnoses Not on filedocumented in this encounter Additional Health Concerns Assessment Noted Time PHQ-9 Depression Total Score: 7 06/21/2014 9:20 AM CDT documented as of this encounter
--- OUTSIDE RECORDS SUMMARY | 2021-10-24 10:30 | XMS_ITS | Encounter Summary ---
:1945 Author Organization [facility] Address [address] [place] [address] Care Team Providers Name Role Phone Unavailable Primary Care Provider Unavailable Encounter Details Date Type Department Care Team Description 03/30/2017 Comprehensive Visit Department of Elizabeth Patel C.N.P. [address] [place] [address] [facility] Luciana Ferguson P.T. [address] [place] [phone] Positional Services in [address] [phone] Social History Tobacco Use Types Packs/Day Years [...] encounter Progress Notes Luciana Ferguson P.T. - 03/30/2017 3:00 PM CST Patient was evaluated treated for vertigo. Patient was seen x1 treatment session. Treatment involvedcanalith repositioning. Patient's progress towards all goals will be discharged. Patient will contact therapist if symptoms return. ATION COURSES SALES REPRESENTATIVE documented in this encounter Consult Notes Luciana Ferguson P.T. - 03/30/2017 3:00 PM CST Consults Patient returns to physical therapy with a repeat episode of positional vertigo. Patient was treatedin December for positional vertigo. Patient reports she woke with symptoms this morning. Patient reported symptoms is dizziness and lightheadedness. Patient reports her symptoms lasted until she returned to bed. Patient has been feeling better throughout the day. Objective assessment: Patient demonstrates adequate cervical range of motion to perform Hallpike Karan testing. Performed Hallpike Karan testing without symptom reproduction. There is no nystagmus visualized and patient did not report symptoms. Patient was taken through maneuvers for the left posterior canal as this was her last canal affectedwithout reproduction of symptoms. Assessment: Patient was evaluated and treated for positional vertigo of the left posterior canal. Symptoms appear to have resolved. Patient was educated to contact therapist if symptoms should return. Patient verbalized understanding. Patient was also educated to hold on VOR exercises for 1 week. Patient is readyto learn with no apparent learning barriers noted. Patient goals: Goal 1. Patient will note symptom resolution within 2 weeks. Physical therapy plan of care: Patient education and canalith repositioning. Patient was evaluated for positional vertigo. Comorbidities affecting her plan of care includes diabetes and previous history of vertigo. Patient's symptoms are evolving. Low level complexity noted in her evaluation today. Plan to see patient for up to 4 treatment sessions over the next 2 weeks to resolve symptoms. Patient will contact therapist if symptoms do not resolve. The patient does not return in 2 weeks patient will be discharged to symptom resolution. Evaluation time: 25 minutes for re-evaluation G codes: Determined by clinical presentation of symptoms and objective measures. Mobility: Walking and moving around current status with goal status of CH to be achieved in 2 weeks. Provider signature ATION COURSES SALES REPRESENTATIVE documented in this encounter Plan of Treatment Not on filedocumented as of this encounter Visit Diagnoses Diagnosis Vertigo Benign Positional Bilateral documented in this encounter Additional Health Concerns Assessment Noted Time PHQ-9 Depression Total Score: 7 06/21/2014 9:20 AM CDT documented as of this encounter
--- OUTSIDE RECORDS SUMMARY | 2021-10-24 10:30 | XMS_ITS | Encounter Summary ---
:1945 Author Organization [facility] Address [address] [place] [address] Care Team Providers Name Role Phone Unavailable Primary Care Provider Unavailable Encounter Details Date Type Department Care Team Description 09/05/2015 Hospital Encounter [facility] [address] [place] [phone] (Wo rk) Social History Tobacco Use [...] VISIT Here for: Mammogram/US follow up. Discuss SBGM HISTORY OF PRESENT ILLNESS Marcial presents today for followup on her diabetes and recent mammogram. She checks her blood sugars up to a couple times per day. Typically they are under 200. She can feel low in the 80s to 90s. When they are high, she can typically associate a dietary transgression. She states her exercise is not good but she is active. Weight and diet have been stable. She states that she needs to have a mid morning snack and sometimes eat at bedtime to keep her blood sugar from getting low. She saw the eye doctor last week. Patient states she was called back for further testing with her mammogram. She has hada shooting pain in the left breast and some tenderness with water hitting her breast in the shower for years. She can even feel this discomfort lying on it. This has not been changing. Mammogram was reviewed and they did not see anything worrisome. Otherwise patient denies any chest pain, shortness ofbreath, sores on her feet, numbness, or tingling. [...] Anxiety disorder NOS Coronary Artery Disease (CAD) [place] Hyperlipidemia/Dyslipidemia Hypothyroidism NOS NIDDM [non-insulin dependent [...] Ordered: OV Est Pt Level 3 - 97006 - 15 min 2. Pain Breast Patient's breast pain has been going on for years and is not changing. She was called back for diagnostic imaging of the left breast but ultimately it was nothing worrisome. I think we can continue with annual mammogram screening unless her pain is becoming more significant. Ordered: OV Est Pt Level 3 - 37741 - 15 min Electronically Signed By: NE VILLAR MD On: 09/06/2015 06:22 AM Source: TLM Com Document Id: [id number] documented in this encounter Miscellaneous Notes Miscellaneous - Ne Cortez M.D. - 09/06/2015 6:24 AM CDT Results Notification Document Contains Addenda Addendum by MARIA C WILSON LPN on September 06, 2015 14:57:54 CDT talked with pt. and gave results. From: NE VILLAR MD To: [place] [facility] Nurse Scotty; Sent: 09/06/2015 06:24:18 CDT Show up: 09/06/2015 06:24:00 CDT Subject: Results Notification Please let patient know that her A1c is 6.5%. We are going to decrease her glipizide to 2.5mg twice daily. She said that we could leave a message. We will see her back in 6 months. Ne Cm Results: Date Result Name Ind Value Ref Range 09/05/2015 13:19 Hgb A1c (H) 6.5 % A1C ( - <=5.6) Source: [facility] POWERCHART Document Id: [id number] Electronically signed by Conversion, [facility] Recruiting Scheduler [id number] at 07/13/2016 1:17 PM CDT Miscellaneous - Ne Cortez M.D. - 09/05/2015 1:04 PM CDT Ambulatory Patient Summary [address] [place] [id number] Visit Information Name: ELIDASTEVEN JOSE MIGUELPATRICK MAI [facility] Number: [id number] Current Date: 09/05/2015 13:04:30 Physicians Attending Provider: NE VILLAR MD Primary Care Provider: NE VILLAR MD BENI JOSE MIGUELPATRICK MAI has [...] Stress Test Active Coronary Artery Disease (CAD) [place] Active Your Upcoming Appointments Date Time [...] you dont have one. Go to [email or web address] and click on Create Your Account. Then, follow the directions to complete the online form. Youll be asked for your [facility] number which you can find at the top of this document. Your Goals/Additional instructions: Source: [facility] POWERCHART Document Id: [id number] Miscellaneous - Ne Cortez M.D. - 09/05/2015 1:04 PM CDT Ambulatory Discharge Medication List [address] [id number] Visit Information Name: ELIDAMARCIAL HARRIS [facility] Number: [id number] Visit Date: 09/05/2015 13:04:29 Attending Provider: NE VILLAR MD Primary Care Provider: NE VILLAR MD ELIDASTEVENMARCIALIEL has been given the following list of [...] MD Signed On:05-SEP-2015 13:04:19 Additional Information: Source: [facility] POWERCHART Document Id: [id number] Miscellaneous - Julio Milian, L.P.N. - 09/05/2015 12:22 PM CDT Adult Woven Label Designer Intake/History Adult Woven Label Designer Intake/History Entered On: 09/05/2015 12:30 CDT Performed [...] Information Given By : Patient Languages : Mongolian Is Patient Female and 13-50 no hysterectomy [...] JULIO MILIAN - 09/05/2015 12:22 CDT Source: TLM Com Document Id: [id number] CDT!34 Miscellaneous - Sade Hogan R.N. - [...] use twice a day or as directed, Prodigbabatunde, 99mo Qty: 200 each Refills: 3 Substitutions Allowed Don't Print - called to pharmacy (Rx) Signed by SADE HOGAN RN Submitted: Order:Rx Diabetic Monitors Supply Message Once E11.9 DMII, Test 2x/day or as directed, Prodada, 99mo Qty: 1 each Refills: 0 Substitutions Allowed Don't Print - called to pharmacy (Rx) Signed by SADE HOGAN RN Pt requested new meter, she will need meter and supplies called in per [place], they will let her know she is getting a new meter. Source: TLM Com Document Id: [id number] Electronically signed by Conversion, [facility] Recruiting Scheduler [id number] at 07/13/2016 1:17 PM CDT documented in this encounter Plan of Treatment Not on filedocumented as of this encounter Procedures Procedure Name Priority Date/Time Associated Diagnosis Comme nts HEMOGLOBIN A1C, B Routine 09/05/2015 1:19 PM Resu lts for this CDT procedure are i n [...]
--- OUTSIDE RECORDS SUMMARY | 2021-10-24 10:30 | XMS_ITS | Encounter Summary ---
:1945 Author Organization [facility] Address [address] [place] [address] Care Team Providers Name Role Phone Unavailable Primary Care Provider Unavailable Encounter Details Date Type Department Care Team Description 07/21/2015 Hospital Encounter HX [facility] Clari Jeffers M.D. [address] , [address] [place], [place] [address] (Wo rk) Social History [...] On: 07/21/2015 12:07 CDT by MELVIN LAUREN [facility] General Preferred Name : Marcial Accompanied By [...] LAUREN LPN - 07/21/2015 12:07 CDT Source: Bubble Motion Document Id: [id number] CDT!28 documented in this encounter Plan of Treatment Not on filedocumented as of this encounter Visit Diagnoses Not on filedocumented in this encounter Additional Health Concerns Assessment Noted Time PHQ-9 Depression Total Score: 7 06/21/2014 9:20 AM CDT documented as of this encounter
--- OUTSIDE RECORDS SUMMARY | 2021-10-24 10:30 | XMS_ITS | Encounter Summary ---
:[address] [facility] Address [address] [place] [address] Care Team Providers Name Role Phone Unavailable Primary Care Provider Unavailable Encounter Details Date Type Department Care Team Description 04/22/2017 Hospital Encounter Department of Radiology Yady Vazquez, [place] [facility] [address] [phone] Social History Tobacco Use Types Packs/Day Years [...] - Routine 04/22/2017 2:57 [place] Results for this TISSUE WITH IV (most inpatients PM WINDOW GLAZIER procedure are in CONTRAST and all the results outpatients) section. documented in this encounter Results CT Neck Soft Tissue with IV Contrast (04/22/2017 2:57 PM WINDOW GLAZIER) Anatomical Region Laterality Modality Neck N/A Computed Tomography Specimen (Source) Anatomical Collection Method Collection Time Re ceived Time Location / / Volume Laterality 04/22/2017 3:21 PM WINDOW GLAZIER Impressions 04/22/2017 3:27 PM WINDOW GLAZIER IMPRESSION: 1. ??No evidence of focal mass [...] pathologic bone lesions. Narrative 04/22/2017 3:27 PM WINDOW GLAZIER EXAM: CT NECK SOFT TISSUE WITH IV [...] 1. No evidence of focal mass or adenopat hy in the soft tissues of the left neck. 2. A few small punctate calcifications a re noted along the anterior right vallecula and adjacent to the lateral ri ght tongue base as detailed above, likely representing tonsillar calcificat ions and of doubtful significance. 3. Frothy secretions and mucosal thicken ing left sphenoid sinus as detailed above. Clinical correlation with any sig ns or symptoms of acute sinusitis recommended. 4. Scattered calcific atheromatous foss es. 5. Mild groundglass opacities in the vis ualized upper lungs, essentially due to subsegmental atelectasis, [...] mg iodine/mL solution Given 04/22/2017 2:12 PM WINDOW GLAZIER 1 30 mL 130 mL (for_OMNIPAQUE) 130 mL, intravenous, Once in imaging, contrast, Starting on Thu04/22/17 at 1405, For 1 dose sodium chloride injection 10 mL Given 04/22/2017 2:58 PM WINDOW GLAZIER 10 mL 10 mL, intravenous, As needed, line care, Starting on Thu04/22/17 at 1405 sodium chloride injection 10 mL Given 04/22/2017 2:58 PM WINDOW GLAZIER 10 mL 10 mL, intravenous, As needed, line care, Starting on Thu04/22/17 at 1405 documented in this encounter Additional Health Concerns Assessment Noted Time PHQ-9 Depression Total Score: 7 06/21/2014 9:20 AM CDT documented as of this encounter
--- OUTSIDE RECORDS SUMMARY | 2021-10-24 10:30 | XMS_ITS | Encounter Summary ---
:1945 Author Organization [facility] Address [address] [place] [address] Care Team Providers Name Role Phone Unavailable Primary Care Provider Unavailable Encounter Details Date Type Department Care Team Description 07/23/2015 Hospital Encounter HX [facility] Mona Lemus M.D. [address] [place] [phone] (Wo rk) Social History Tobacco Use Types [...] This revealed a 70% lesion in her leftanterior descending artery. Intracoronary flow assessment was abnormal [...] to work a bit harder. She is toleratingall the medications without problems. She does report that she is having some bright lights in her left eye off and on. No other symptoms to suggest a TIA. There has been no facial droop. No dysarthria. She did state that her left cheek got a bit hot and whether that is due to her rosacea is unclear. She does have an appointment with the o ptometrist/lip of shank cutter coming up. MEDICATIONS Aspirin 81 mg a [...] hear no carotid bruits. No bruits in her abdomen. Pulses are intact upper and lower extremity [...] LEMUS MD On: 03/18/2016 11:34 AM Source: [facility] MHSDOLBEYNONRADSYS Document Id: [id number] OPERATOR documented in this encounter Miscellaneous Notes Miscellaneous - Andrea Malhotra R.N. - 07/23/2015 12:59 PM CDT Adult Commercial Hvac Technician Intake/History Adult Commercial Hvac Technician Intake/History Entered On: 07/23/2015 13:03 CDT Performed On: 07/23/2015 12:59 CDT by ANDREA MALHOTRA billing analyst Chief Complaint : Here for 6 month follow-up Onset of Symptoms : No chest pain. Sees bright lights in left eye off and on. Started past 2 1/2 weeks. Will be seeing eye doctor in a [...] 07/23/2015 12:59 CDT General Info Languages : Tristanian Is Patient Female and 13-50 no hysterectomy [...] MALHOTRA RN - 07/23/2015 12:59 CDT Source: [facility] GetBulb Document Id: [id number] CDT!39 documented in this encounter Plan of Treatment Not on filedocumented as of this encounter Visit Diagnoses Not on filedocumented in this encounter Additional Health Concerns Assessment Noted Time PHQ-9 Depression Total Score: 7 06/21/2014 9:20 AM CDT documented as of this encounter
--- OUTSIDE RECORDS SUMMARY | 2021-10-24 10:30 | XMS_ITS | Encounter Summary ---
:1945 Author Organization [facility] Address [address] [place] [address] Care Team Providers Name Role Phone Unavailable Primary Care Provider Unavailable Encounter Details Date Type Department Care Team Description 07/29/2016 Hospital Encounter H[facility] Jayne Varela, C.N.P. [address] [place] [address] (Wo rk) Social History Tobacco Use Types [...] been more tired since last week. Napping also. No increase in SOB or chest pain. Suggested that she call her primary provider- Suresh Patel at [facility]- and update her. Encouraged to call back if she has any other concerns. Stated that she would. Electronically Signed By: ANDREA MALHOTRA RN On: 08/07/2016 10:48 AM Modified by and Electronically Signed by: ANDREA MALHOTRA RN On: 08/07/2016 10:48 AM Source: icix Document Id: [id number] documented in this encounter Miscellaneous Notes Miscellaneous - Conversion, Historical Provider Ser - 07/29/2016 11:59 PM CDT Coding Summary-Paper Based CODING DATE: 08/01/2016 FINAL [facility] STATUS: * Discharged to Home or Self [...] WARD Date Saved: 08/01/2016 10:18 am Source: icix Document Id: [id number] documented in this encounter Plan of Treatment Not on filedocumented as of this encounter Visit Diagnoses Not on filedocumented in this encounter Additional Health Concerns Assessment Noted Time PHQ-9 Depression Total Score: 7 06/21/2014 9:20 AM CDT documented as of this encounter
--- OUTSIDE RECORDS SUMMARY | 2021-10-24 10:30 | XMS_ITS | Encounter Summary ---
:1945 Author Organization [facility] Address [address] [place] [address] Care Team Providers Name Role Phone Unavailable Primary Care Provider Unavailable Encounter Details Date Type Department Care Team Description 01/31/2015 - Hospital Encounter [facility] Nery belle, 09/21/2015 AURELIANO Belle M.D. [address] [place] [phone] Social History Tobacco Use Types Packs/Day [...] Gail Cortez M.D. - 04/27/2015 3:05 PM FRUIT OR NUT FARMER needs appt Document Contains Addenda Addendum by NYA WILSON LPN on April 30, 2015 10:39:19 CDT paperwork is on Dr. Gabriel desk- Addendum by GAIL VILLAR MD on April 30, 2015 07:07:05 CDT From: GAIL VILLAR MD To: [facility] Medicine Nurse Fajrado; Sent: 04/30/2015 07:07:05 CDT Subject: RE: needs appt Yes- that is fine. Gail Cm Addendum by JULIO PÉREZ on April 27, 2015 16:48:34 FRUIT OR NUT FARMER From: JULIO PÉREZ ([facility] Nurse Fajardo) To: GAIL VILLAR MD; Sent: 04/27/2015 16:48:34 FRUIT OR NUT FARMER Subject: FW: needs appt Client has an appointment in early May and would like to do it then. Can we keep the paperwork here until then? Jennifer Cm From: GAIL VILLAR MD To: [facility] Medicine Nurse Fajardo; Sent: 04/27/2015 15:05:09 FRUIT OR NUT FARMER Subject: needs appt Please let patient know that I have received the paperwork for the diabetic shoes, but for insuranceto pay for them we need to update her foot exam. Could she please make an appt to do this? 15min would be okay unless patient has other things to discuss. ThanksGail Source: [facility] POWERCHART Document Id: [id number] Electronically signed by Sae, [facility] Manager Educational [id number] at 07/14/2016 9:28 AM CDT Miscellaneous - Nya Wilson, LJairoP.N. - 02/26/2015 1:12 PM CST Accu-Chek Monitor Document Contains Addenda Addendum by ERNESTO CRUM LPN on 26 February 2015 16:17:25 FRUIT OR NUT FARMER left message orders filled Addendum by GAIL VILLAR MD on 26 February 2015 14:11:03 FRUIT OR NUT FARMER From: GAIL VILLAR MD To: [facility] Nurse Scotty; Sent: 02/26/2015 14:11:03 FRUIT OR NUT FARMER Subject: RE: Accu-Chek Monitor Sent to [facility]. Thanks, Gail From: NYA WILSON LPN ([facility] Nurse Scotty) To: GAIL VILLAR MD; Sent: 02/26/2015 13:12:37 FRUIT OR NUT FARMER Subject: Accu-Chek Monitor Pt called and states her Accu Check Monitor quit working. She needs a new RX for it [facility]. She also needs the strips. She tests 1x daily and sometimes 2-3 times depending. Please giveher refills if possible. I could not propose this for you. Source: Sharypic Document Id: [id number] Electronically signed by Conversion, [facility] Manager Educational [id number] at 07/14/2016 9:28 AM CDT Miscellaneous - Conversion, Historical Provider Ser - 02/07/2015 11:40 AM FRUIT OR NUT FARMER Coding Summary-Paper Based CODING DATE: 02/07/2015 FINAL [facility] STATUS: Still Patient/Expected to Rtn pt [facility] PAYOR: Medicare ADMIT DX: REASON FOR VISIT DX: FINAL DX: PRINCIPAL: Z95.5 Presence of coronary angioplasty implant and graft SECONDARY: I25.10 Atherosclerotic heart disease of [place] coronary artery without angina pectoris R00.2 Palpitations E11.9 Type 2 diabetes mellitus without complications PROCEDURES DOCTOR NAME DATE NOTE: The code number assigned matches the documented diagnosis and / or procedure in the patient's chart. However, the narrative phrase printed from the coding software may appear abbreviated, or result in slightly different terminology. Coded By: SANDRA LARA Date Saved: 02/07/2015 11:40 am Source: Sharypic Document Id: [id number] documented in this encounter Plan of Treatment Not on filedocumented as of this encounter Visit Diagnoses Not on filedocumented in this encounter Additional Health Concerns Assessment Noted Time PHQ-9 Depression Total Score: 7 06/21/2014 9:20 AM CDT documented as of this encounter
--- OUTSIDE RECORDS SUMMARY | 2021-10-24 10:30 | XMS_ITS | Encounter Summary ---
:1945 Author Organization [facility] Address [address] [place] [address] Care Team Providers Name Role Phone Unavailable Primary Care Provider Unavailable Reason for Referral Outpatient (Routine) - Closed Specialty Diagnoses / Procedures Referred By Contact Refer red To Contact Cardiovascular Disease MARIA DEL ROSARIO Escamilla [facility] Region Erik Jean-Baptiste M.D. [address] [place] [phone] Referral ID Status Reason Start Date Expiration Date Visits Requ ested Visits Authorized [id number] Closed 08/03/2017 08/03/2018 1 1 Reason for Visit Reason Comments Follow-up Yearly follow-up. No chest p ain, no increase in SOB. Continues to have some activity at times. No edema Outpatient (Routine) - Closed Specialty Diagnoses / Procedures Referred By Contact Refer red To Contact Diagnoses Hyperlipidemia Erik Escamilla M.D. [address] [place] [phone] Referral ID Status Reason Start Date Expiration Date Visits Requ ested Visits Authorized [id number] Closed 11/28/2016 05/27/2017 1 1 Encounter Details Date Type Department Care Team Description 08/03/2017 Office Visit Department of Jenny Hayes, Coronary Ar wilbert Disease [place] (Primary Dx); Cardiovascular Diseases Erik Jean-Baptiste M.D. Hyperlipidemia; in [facility], [address] [place] [address] Arthritis Rheumatoid (HCC); [place], [place] Diabetes Mellitus Type 2 (HC C); [address] [place] [address] [address] [address] Nightmare Disorder [place], [place] [phone] (Work) [phone] Social History Tobacco Use Types Packs/Day Years [...] Amato M.D. - 08/03/2017 9:30 AM CDT [facility] Reason for the visit: Follow-up on chronic stable coronary artery disease, medication review, new diagnosis of rheumatoid arthritis History of Present Illness: Had the pleasure meeting with Mrs Adams, a delightful 72-year-old community dwelling, independent senior, well known to the Cardiology practice here at [facility] mainly due to a history of established [...] [facility] [...] the nightmares. Because of this, her atorvastatin has been discontinued. However her symptoms have not improved. [...] drug-eluting stent to the LAD in 2015, [place] Class 1 # 2 Type 2 diabetes [...] to simplify management of her chronic medical c onditions. Nevertheless, I expressed to her my happiness [...] of going back to atorvastatin 40 mg daily. It is exceedingly unlikely that this medication is [...] she is more than 1 year out of her stent and does not appear to be having a secondary strict indication. I told her to monitor her sleep for the next couple weeks in the absence of metoprolol. If there is significant improvement and resolution of the symptoms, then [...] nts ECG Routine 08/03/2017 9:18 AM Hyperlipidemia Results for this CDT procedure are i n the results section . documented in this encounter Results ECG 12 Lead (07/27/2018 10:08 AM CDT) P athologist Signature Ventricular Rate 83 BPM MUSE ECG/Min [place] Interval 144 ms MUSE QRSD Interval 84 ms MUSE QT Interval 362 ms MUSE QTC Interval 425 ms MUSE P [place] 62 degrees MUSE R [place] -20 degrees MUSE T Wave [place] 79 degrees MUSE Specimen Anatomical Collection Method [...] Signature Ventricular Rate 78 BPM MUSE ECG/Min [place] Interval 136 ms MUSE QRSD Interval 80 ms MUSE QT Interval 378 ms MUSE QTC Interval 430 ms MUSE P [place] 59 degrees MUSE R [place] -13 degrees MUSE T Wave [place] 74 degrees MUSE Specimen Anatomical Collection Method Collection Time Receive d Time (Source) Location / / Volume Laterality 08/03/2017 9:18 AM 8 CDT 10:44 AM CDT Impressions MUSE - [...] encounter Visit Diagnoses Diagnosis Coronary Artery Disease [place] - Primary Hyperlipidemia Arthritis Rheumatoid (HCC) Diabetes Mellitus Type 2 (HCC) Nightmare Disorder Hyperlipidemia Arthritis Rheumatoid (HCC) Coronary Artery Disease [place] Diabetes Mellitus Type 2 (HCC) documented in this encounter Additional Health Concerns Assessment Noted Time PHQ-9 Depression Total Score: 7 06/21/2014 9:20 AM CDT documented as of this encounter
--- OUTSIDE RECORDS SUMMARY | 2021-10-24 10:30 | XMS_ITS | Encounter Summary ---
:1945 Author Organization [facility] Address [address] [place] [address] Care Team Providers Name Role Phone Unavailable Primary Care Provider Unavailable Reason for Referral Outpatient (Routine) - Closed Specialty Diagnoses / Procedures Referred By Contact Refer red To Contact Diagnoses Hyperlipidemia Erik Escamilla M.D. [address] [place] [address] Referral ID Status Reason Start Date Expiration Date Visits Requ ested Visits Authorized [id number] Closed 11/28/2016 05/27/2017 1 1 Encounter Details Date Type Department Care Team Description 11/28/2016 Orders Only Department of Annamarie Escamilla; Cardiovascular Medicine Erik Jean-Baptiste M.D. Diabetes Mellitus Type 2 Without Complic ation (HCC) in [facility] [address] [place] [address] [address] [place] [phone] Social History Tobacco Use Types Packs/Day Years [...] athologist Signature Cholesterol, 258 (H) mg/dL 08/03/2017 [facility] Total 9:56 AM CDT [facility] Comment: ----REFERENCE VALUE---- Desirable: < 200 Borderline high: 200 - 239 High: > or = 240 Triglycerides 149 mg/dL 08/03/2017 9:56 AM CDT [facility] Comment: ----REFERENCE VALUE---- Normal: <150 Borderline high: 150-199 High: 200-499 Very high: > or =500 Cholesterol, HDL, S 62 >=50 mg/dL 08/03/2017 9:56 AM CDT [facility] Calculated LDL 166 (H) mg/dL 08/03/2017 9:56 AM CDT [facility] Comment: ----REFERENCE VALUE---- Desirable: <100 Above Desirable: 100-129 Borderline high: 130-159 High: 160-189 Very high: > or =190 Cholesterol, Non-HDL, 196 (H) mg/dL 08/03/2017 9:56 AM CDT [facility] LAB Comment: ----REFERENCE VALUE---- Desirable: <130 Above Desirable: 130-159 Borderline high: 160-189 High: 190-219 Very high: > or =220 Specimen Anatomical Collection Method Collection Time Receive d Time (Source) Location / / Volume Laterality Blood 08/03/2017 9:11 AM 8 9:12 CDT AM CDT Erik Hayes M.D. LAB BLOOD ADD-ON Performing Organization Address City/State/ZIP Code Phon e Number [facility] [id number] [address] [place] [facility] (ABNORMAL) BMP (Basic Metabolic Panel) (08/03/2017 9:11 AM CDT) Analysis Performed At Patho logist Time Signature Potassium, S 3.9 3.6 - 5.2 08/03/2017 [facility] mmol/L 9:56 AM [facility] Sodium, S 143 135 - 145 08/03/2017 [facility] mmol/L 9:56 AM [facility] Chloride, S 106 98 - 107 08/03/2017 [facility] mmol/L 9:56 AM [facility] Bicarbonate, S 25 22 - 29 08/03/2017 [facility] mmol/L 9:56 AM [facility] Anion Gap 12 7 - 15 08/03/2017 [facility] 9:56 AM [facility] BUN (Blood Urea 27 (H) 6 - 21 08/03/2017 [facility] Nitrogen), S mg/dL 9:56 AM [facility] Creatinine 1.27 (H) 0.59 - 08/03/2017 [facility] 1.04 mg/dL 9:56 AM [facility] eGFR-Non 42 (L) >=60 08/03/2017 [facility] Black/ mL/min/BSA 9:56 AM [facility] LAB Comment: ----ADDITIONAL INFORMATION---- Estimated GFR calculated using the 2009 CKD_EPI creatinine equation. eGFR-Black/ 49 (L) >=60 mL/min/BSA 08/03/2017 9:56 AM [facility] Swazi [facility] Comment: ----ADDITIONAL INFORMATION---- Estimated GFR calculated using the 2009 CKD_EPI creatinine equation. Calcium, Total, S 9.8 8.8 - 10.2 mg/dL 08/03/2017 9 :56 AM T [facility] Glucose, S 140 70 - 140 mg/dL 08/03/2017 9:56 AM T [facility] Specimen Anatomical Collection Method Collection Time Receive d Time (Source) Location / / Volume Laterality Blood 08/03/2017 9:11 AM 8 9:12 CDT AM CDT Erik Hayes M.D. LAB BLOOD ADD-ON Performing Organization Address City/State/ZIP Code Phon e Number [facility]- [id number] [address] [place] [facility] documented in this encounter Visit Diagnoses Diagnosis Hyperlipidemia Diabetes Mellitus Type 2 Without Complic ation (HCC) documented in this encounter Additional Health Concerns Assessment Noted Time PHQ-9 Depression Total Score: 7 06/21/2014 9:20 AM CDT documented as of this encounter
--- OUTSIDE RECORDS SUMMARY | 2021-10-24 10:30 | XMS_ITS | Encounter Summary ---
:1945 Author Organization [facility] Address [address] [place] [address] Care Team Providers Name Role Phone Unavailable Primary Care Provider Unavailable Reason for Visit Reason Comments Hyperglycemia blood sugar at 2115 [id number] has taken an extra glypizide at 2105. is not insulin dependent but had a dose of IV steroids around 1300 for arthritis flare. Encounter Details Date Type Department Care Team Description 05/25/2017 Emergency [place] [facility] Juan Urias Hyperglycemia (Primary Department R, M.D. Dx) [address] [place] [phone] Social History Tobacco Use Types Packs/Day Years [...] cannot be sent through Care Everywhere. Hyperglycemia ([place])documented in this encounter Medications at Time of [...] flare. ) HISTORY OF PRESENT ILLNESS Marcial Adasm is a 71 y.o. female with significant [...] the emergency department for evaluation as her glucosehad not improved after 30-40 minutes. She denies any dizziness, weakness, nausea vomiting, abdominal pain. She has had no cough, shortness [...] section. CBC WITH DIFFERENTIAL, STAT 05/25/2017 9:52 PM Results for this B CDT procedure are i n the results section. COMPREHENSIVE STAT 05/25/2017 9:52 PM Results for this METABOLIC PANEL, S/P CDT procedu re are in the results section. BLOOD GAS, POCT, B STAT 05/25/2017 1:38 PM Res ults for this CDT procedure are i n the results section. documented in this encounter Results (ABNORMAL) Glucose, POCT (05/25/2017 10:50 PM CDT) P athologist Signature Glucose, POCT, 399 (H) 70 - 140 05/25/2017 [facility] B mg/dL 10:50 PM CDT [facility] Specimen Anatomical Collection Method Collection Time Receive d Time (Source) Location / / Volume Laterality Blood 05/25/2017 10:50 05/25/2017 PM CDT 10:56 PM CDT Generic [facility] POCT ORDERABLES-MANUAL Performing Organization Address City/State/[facility] Code Phon e Number [facility]- [address] [place] [phone] [place] [address] LAB (ABNORMAL) VBG (Venous Blood Gas), POCT (05/25/2017 10:42 PM CDT) Patholo gist Method Time Signature pH, Venous, 7.39 7.32 - 7.43 05/25/2017 [facility] POCT, B 10:42 PM CDT [facility] pCO2, Venous, 32 (L) 41 - 51 mm Hg 05/25/2017 [facility] POCT, B 10:42 PM CDT [facility] pO2, Venous, 55 Not applicable 05/25/2017 [facility] POCT, B mm Hg 10:42 PM CDT [facility] HCO3, Venous, 20 Not applicable 05/25/2017 [facility] POCT, B mmol/L 10:42 PM CDT [facility] Base Excess, -5 Not applicable 05/25/2017 [facility] Venous, POCT, mmol/L 10:42 PM CDT [facility] O2 Saturation, 88 Not applicable 05/25/2017 [facility] Venous, POCT, % 10:42 PM CDT [facility] Sample Type, RAJI 05/25/2017 [facility] Blood Gas, 10:42 PM CDT [facility] FIO2, POCT 0.00 [id number] 05/25/2017 [facility] 10:42 PM CDT [facility] Comment: ----ADDITIONAL INFORMATION---- Performed at the Point of Care Specimen Anatomical Collection Method Collection Time Receive d Time (Source) Location / / Volume Laterality Blood 05/25/2017 10:42 05/25/2017 PM CDT 10:53 PM CDT Generic [facility] POCT ORDERABLES - DEVICE Performing Organization Address [facility] Phon e Number [address] [address] [place] [facility] (ABNORMAL) Microscopic Manual (05/25/2017 10:24 PM CDT) P athologist Signature White Blood 4-10 /hpf 05/25/2017 [facility] Cells 10:49 PM CDT [facility] Comment: ----REFERENCE VALUE---- Males: 0-3 Females: 0-10 Unknown: 0-10 Red Blood Cells Occ-2 0 - 2 /hpf 05/25/2017 10:49 PM CDT [facility] Hyaline Casts Occasional /lpf 05/25/2017 10:49 PM CDT [facility] Squamous Cells Occ-3 /hpf 05/25/2017 10:49 PM CDT [facility] Bacteria Present (A) None Seen 05/25/2017 10:49 PM CDT [facility] LAB Specimen Anatomical Collection Method Collection Time Receive d Time (Source) Location / / Volume Laterality Urine 05/25/2017 10:24 05/25/2017 PM CDT 10:29 PM CDT Juan Urias M.D. LAB URINE ORDERABLES Performing Organization Address [facility] Phon e Number [address] [address] [place] [facility] (ABNORMAL) Urinalysis with Microscopic if Indicated (05/25/2017 10:24 PM CDT) P athologist Signature Source Midstream 05/25/2017 [facility] 10:29 PM [facility] Clarity Clear Clear 05/25/2017 [facility] 10:29 PM [facility] Color Yellow 05/25/2017 [facility] 10:29 PM [facility] Comment: ----REFERENCE VALUE---- Colorless Yellow Zoey Blood Trace (A) Negative 05/25/2017 10:29 PM CDT [facility] Nitrite Negative Negative 05/25/2017 10:29 PM [facility] Leukocyte Esterase Trace (A) Negative 05/25/2017 10:29 PM T [facility] Protein Negative mg/dL 05/25/2017 10:29 PM [facility] Comment: ----REFERENCE VALUE---- Negative Trace Glucose >=1000 (A) Negative mg/dL 05/25/2017 10:29 PM [facility] Ketones, QL(U) Trace (A) Negative mg/dL 05/25/2017 10:29 PM [facility] Bilirubin Negative Negative 05/25/2017 10:29 PM [facility] pH 5.0 5.0 - 8.0 05/25/2017 10:29 PM [facility] Specific [place] 1.010 1.001 - 1.035 05/25/2017 10:29 PM [facility] Urobilinogen 0.2 0.2 - 1.0 mg/dL 05/25/2017 10:29 PM [facility] Specimen Anatomical Collection Method Collection Time Receive d Time (Source) Location / / Volume Laterality Urine (Urine, 05/25/2017 10:24 05/25/2017 Clean Catch) PM CDT 10:24 PM CDT Juan Urias M.D. LAB URINE ORDERABLES Performing Organization Address [facility] Phon e Number [facility]- [address] [place] [address] [place] [facility] (ABNORMAL) Glucose, POCT (05/25/2017 10:11 PM CDT) P athologist Signature Glucose, POCT, 441 (H) 70 - 140 05/25/2017 [facility] B mg/dL 10:11 PM [facility] Specimen Anatomical Collection Method Collection Time Receive d Time (Source) Location / / Volume Laterality Blood 05/25/2017 10:11 05/25/2017 PM CDT 10:19 PM CDT Generic [facility] POCT ORDERABLES-MANUAL Performing Organization Address [facility] Code Phon e Number [facility]- [address] [place] [phone] [place] [facility] (ABNORMAL) CMP (Comprehensive Metabolic Panel) (05/25/2017 9:52 PM CDT) Analysis Performed At Patho logist Time Signature Potassium, P 4.5 3.6 - 5.2 05/25/2017 [facility] mmol/L 10:21 PM [facility] Sodium, P 130 (L) 135 - 145 05/25/2017 [facility] mmol/L 10:21 PM [facility] Chloride, P 92 (L) 98 - 107 05/25/2017 [facility] mmol/L 10:21 PM [facility] Bicarbonate, P 19 (L) 22 - 29 05/25/2017 [facility] mmol/L 10:21 PM [facility] Anion Gap, P 19 (H) 7 - 15 05/25/2017 [facility] 10:21 PM [facility] BUN (Blood Urea 38 (H) 6 - 21 05/25/2017 [facility] Nitrogen), P mg/dL 10:21 PM [facility] Creatinine 1.05 (H) 0.59 - 05/25/2017 [facility] 1.04 mg/dL 10:21 PM [facility] eGFR-Black/Afri 62 >=60 05/25/2017 [facility] can Bhutanese mL/min/BSA 10:21 [facility] Comment: ----ADDITIONAL INFORMATION---- Estimated GFR calculated using the 2009 CKD_EPI creatinine equation. eGFR Non-Black/ 54 (L) >=60 mL/min/BSA 05/25/2017 10:21 [facility] Bhutanese [facility] Comment: ----ADDITIONAL INFORMATION---- Estimated GFR calculated using the 2009 CKD_EPI creatinine equation. Calcium, Total, P 9.0 8.9 - 10.1 05/25/2017 10:21 [facility] mg/dL [facility] Glucose, P 499 (CH) 70 - 140 mg/dL 05/25/2017 10:21 [facility] Protein, Total, P 7.2 6.3 - 7.9 g/dL 05/25/2017 10:21 [facility] Albumin, P 3.7 3.5 - 5.0 g/dL 05/25/2017 10:21 [facility] Aspartate 21 8 - 43 U/L 05/25/2017 10:21 [facility] Aminotransferase (AST), P [facility] Alkaline Phosphatase, P 74 55 - 142 U/L 05/25/2017 10 :21 [facility] Alanine Aminotransferase 20 7 - 45 U/L 05/25/2017 10: 21 [facility] (ALT), P [facility] Bilirubin, Total, P <0.2 <=1.2 mg/dL 05/25/2017 10:21 [facility] Specimen Anatomical Collection Method Collection Time Receive d Time (Source) Location / / Volume Laterality Blood (Blood, 05/25/2017 9:52 PM 05/26/19 18 9:52 Venous) [facility] LAB BLOOD ADD-ON Performing Organization Address City/State/ZIP Code Phon e Number [facility]- [address] [place] [phone] [place] [facility] (ABNORMAL) CBC with Differential (05/25/2017 9:52 PM CDT) [facility] gist Method Time Signature Hemoglobin 11.0 (L) 11.6 - 05/25/2017 [facility] 15.0 g/dL 10:07 PM CDT [facility] Hematocrit 33.3 (L) 35.5 - 05/25/2017 [facility] 44.9 % 10:07 PM CDT [facility] Erythrocytes 3.55 (L) 3.92 - 05/25/2017 [facility] 5.13 10:07 PM CDT [facility] x10(12)/L [facility] [employer] [facility] MCV 93.8 78.2 - 05/25/2017 [facility] 97.9 fL 10:07 PM CDT [facility] RBC Distrib Width 13.0 12.2 - 05/25/2017 [facility] 16.1 % 10:07 PM CDT [facility] Platelet Count 235 157 - 371 05/25/2017 [facility] x10(9)/L 10:07 PM CDT [facility] Leukocytes 8.9 3.4 - 9.6 05/25/2017 [facility] x10(9)/L 10:07 PM CDT [facility] Neutrophils 8.56 (H) 1.56 - 05/25/2017 [facility] 6.45 10:07 PM CDT [facility] x10(9)/[facility] [employer] [facility] Lymphocytes 0.22 (L) 0.95 - 05/25/2017 [facility] 3.07 10:07 PM CDT [facility] x10(9)/L [facility]- [facility] Monocytes 0.09 (L) 0.26 - 05/25/2017 [facility] 0.81 10:07 PM CDT [facility]10(9)/[facility] Eosinophils 0.01 (L) 0.03 - 05/25/2017 [facility] 0.48 10:07 PM CDT [facility] x10(9)/L [facility] [employer] [facility] Basophils 0.01 0.01 - 05/25/2017 [facility] 0.08 10:07 PM CDT [facility] x10(9)/L [facility] [employer] [facility] Specimen Anatomical Collection Method Collection Time Receive d Time (Source) Location / / Volume Laterality Blood (Blood, 05/25/2017 9:52 PM 05/26/19 18 9:52 Venous) CDT PM CDT Juan Urias M.D. LAB BLOOD ADD-ON Performing Organization Address [facility] Code Phon e Number [address] [address] [place] [facility] Blood Gas, POCT (05/25/2017 1:38 PM CDT) Analysis Performed At [facility] logist Time Signature Blood Gas, Collected 05/27/2017 [facility] POCT, B 1:38 PM CDT [facility] Specimen Anatomical Collection Method Collection Time Receive d Time (Source) Location / / Volume Laterality Blood (Other, 05/25/2017 1:38 PM 05/28/19 18 1:38 Specify in CDT PM CDT Comments) Juan Urias M.D. LAB POCT ORDERABLES - DEVICE Performing Organization Address [facility] Phon e Number [address] [address] [place] [facility] documented in this encounter Visit Diagnoses Diagnosis Hyperglycemia - Primary documented in this encounter Additional Health Concerns Assessment Noted Time PHQ-9 Depression Total Score: 7 06/21/2014 9:20 AM CDT documented as of this encounter
--- OUTSIDE RECORDS SUMMARY | 2021-10-24 10:30 | XMS_ITS | Encounter Summary ---
:[address] [facility] Address [address] [place] [address] Care Team Providers Name Role Phone Unavailable Primary Care Provider Unavailable Encounter Details Date Type Department Care Team Description 08/03/2017 Hospital Encounter Department of Jenny Hayes, [facility] [place] lipidemia Laboratory Medicine in Erik Jean-Baptiste M.D. [place], [id number] [place] [address] [phone] (Work) [phone] Social History Tobacco Use Types Packs/Day Years [...] nts LIPID PANEL, S Routine 08/03/2017 9:11 AM Hyperlipidemia Resul ts for this CDT procedure are i n the results section. BASIC METABOLIC Routine 08/03/2017 9:11 AM Hyperlipidemia Resu lts for this PANEL, S/P CDT procedure are i n the results section. documented in this encounter Results (ABNORMAL) Lipid Panel (08/03/2017 9:11 AM CDT) P athologist Signature Cholesterol, 258 (H) mg/dL 08/03/2017 [facility] Total 9:56 AM CDT [facility] [employer] LAB Comment: ----REFERENCE VALUE---- Desirable: < 200 Borderline high: 200 - 239 High: > or = 240 Triglycerides 149 mg/dL 08/03/2017 9:56 AM CDT [facility] [employer] LAB Comment: ----REFERENCE VALUE---- Normal: <150 Borderline high: 150-199 High: 200-499 Very high: > or =500 Cholesterol, HDL, S 62 >=50 mg/dL 08/03/2017 9:56 AM CDT [facility] [employer] LAB Calculated LDL 166 (H) mg/dL 08/03/2017 9:56 AM CDT [facility] Comment: ----REFERENCE VALUE---- Desirable: <100 Above Desirable: 100-129 Borderline high: 130-159 High: 160-189 Very high: > or =190 Cholesterol, Non-HDL, 196 (H) mg/dL 08/03/2017 9:56 AM CDT [facility] LAB Comment: ----REFERENCE VALUE---- Desirable: <130 Above Desirable: 130-159 Borderline high: 160-189 High: 190-219 Very high: > or =220 Specimen Anatomical Collection Method Collection Time Receive d Time (Source) Location / / Volume Laterality Blood 08/03/2017 9:11 AM 8 9:12 CDT AM CDT Erik Hayes M.D. LAB BLOOD ADD-ON Performing Organization Address City/State/ZIP Code Phon e Number - [phone] [address] [place] LAB (ABNORMAL) BMP (Basic Metabolic Panel) (08/03/2017 9:11 AM CDT) Analysis Performed At Patho logist Time Signature Potassium, S 3.9 3.6 - 5.2 08/03/2017 [facility] mmol/L 9:56 AM [facility] LAB Sodium, S 143 135 - 145 08/03/2017 [facility] mmol/L 9:56 AM [facility] LAB Chloride, S 106 98 - 107 08/03/2017 [facility] mmol/L 9:56 AM [facility] Bicarbonate, S 25 22 - 29 08/03/2017 [facility] mmol/L 9:56 AM [facility] Anion Gap 12 7 - 15 08/03/2017 [facility] 9:56 AM [facility] BUN (Blood Urea 27 (H) 6 - 21 08/03/2017 [facility] Nitrogen), S mg/dL 9:56 AM [facility] Creatinine 1.27 (H) 0.59 - 08/03/2017 [facility] 1.04 mg/dL 9:56 AM [facility] LAB eGFR-Non 42 (L) >=60 08/03/2017 [facility] Black/ mL/min/BSA 9:56 AM T [facility] LAB Comment: ----ADDITIONAL INFORMATION---- Estimated GFR calculated using the 2009 CKD_EPI creatinine equation. eGFR-Black/ 49 (L) >=60 mL/min/BSA 08/03/2017 9:56 AM [facility] LAB Comment: ----ADDITIONAL INFORMATION---- Estimated GFR calculated using the 2009 CKD_EPI creatinine equation. Calcium, Total, S 9.8 8.8 - 10.2 mg/dL 08/03/2017 9 :56 AM CDT [facility] Glucose, S 140 70 - 140 mg/dL 08/03/2017 9:56 AM CDT [facility] Specimen Anatomical Collection Method Collection Time Receive d Time (Source) Location / / Volume Laterality Blood 08/03/2017 9:11 AM 8 9:12 CDT AM CDT Erik Hayes M.D. LAB BLOOD ADD-ON Performing Organization Address City/State/ZIP Code Phon e Number - [phone] [address] [place] [facility] documented in this encounter Visit Diagnoses Diagnosis Hyperlipidemia documented in this encounter Additional Health Concerns Assessment Noted Time PHQ-9 Depression Total Score: 7 06/21/2014 9:20 AM CDT documented as of this encounter
--- OUTSIDE RECORDS SUMMARY | 2021-10-24 10:30 | XMS_ITS | Encounter Summary ---
:1945 Author Organization [facility] Address [address] [place] [address] Care Team Providers Name Role Phone Unavailable Primary Care Provider Unavailable Reason for Visit Reason Onset Date Comments orders needed 06/24/2017 Encounter Details Date Type Department Care Team Description 06/24/2017 Clinical Communication Department of whitney Escamilla needed Cardiovascular Diseases Erik Jean-Baptiste M.D. in [place] [id number] th [id number] [place] [address] [phone] (Work) [phone] Social History Tobacco Use Types Packs/Day Years [...] Amato. But it says she needs to have an EKG first. So can this be ordered [...]
--- OUTSIDE RECORDS SUMMARY | 2021-10-24 10:30 | XMS_ITS | Encounter Summary ---
:1945 Author Organization [facility] Address [address] [place] [address] Care Team Providers Name Role Phone Unavailable Primary Care Provider Unavailable Encounter Details Date Type Department Care Team Description 07/31/2015 Hospital Encounter HX [facility] Gail Ge M.D. [address] [phone] (Wo rk) Social History Tobacco [...] Summary-Paper Based CODING DATE: 08/06/2015 FINAL RW [facility] STATUS: * Discharged to Home or Self [...] WARD Date Saved: 08/06/2015 02:36 pm Source: [employer] Document Id: [id number] documented in this encounter Plan of Treatment Not on filedocumented as of this encounter Visit Diagnoses Not on filedocumented in this encounter Additional Health Concerns Assessment Noted Time PHQ-9 Depression Total Score: 7 06/21/2014 9:20 AM CDT documented as of this encounter
--- OUTSIDE RECORDS SUMMARY | 2021-10-24 10:31 | XMS_ITS | Encounter Summary ---
:1945 Author Organization [facility] Address [address] [place] [address] Care Team Providers Name Role Phone Unavailable Primary Care Provider Unavailable Encounter Details Date Type Department Care Team Description 02/01/2015 Hospital Encounter [facility] FAMILY OR Gail Garrison M.D. [address] [place] [phone] (Wo rk) Social History Tobacco Use [...] Comments Blood Pressure 122/52 02/01/2015 12:42 PM ASSISTANT GROCERY STORE MANAGER Pulse 70 02/01/2015 12:42 PM ASSISTANT GROCERY STORE MANAGER Temperature - - Respiratory Rate 18 02/01/2015 12:42 PM ASSISTANT GROCERY STORE MANAGER Oxygen Saturation - - Inhaled Oxygen Concentration - - Weight - - Height 158 cm (5' 2.21) 02/01/2015 12:42 PM ASSISTANT GROCERY STORE MANAGER Body Mass Index - - documented in [...] feeling although it is not entirely clear to me if these are still occurring. MEDICATIONS aspirin 81 mg oral tablet, 81 mg, 1 tab(s), Take with food for heart health., PO, Daily, 0 refills clindamycin 1% topical [...] Artery Disease (CAD) NOS Notes reviewed from [place]. Patient's questions answered to the best of my ability. She is not on a beta rich and I am uncertain why. I will send Dr. Haile a message so that this can be addressed at her upcoming appt. Continue simvastatin. Ordered: OV Est Pt Level 4 - 57938 - 25 min 2. Coronary Stent S/P Patient is overall doing well. We discussed that she will need to be on Plavix for one year and thestop date was added to her med list. Ordered: OV Est Pt Level 4 - 50330 - 25 min 3. Palpitations We reviewed her Holter monitor which did show some abnormalities. My assumption is that these wouldbe managed medically. The beta rich could be beneficial. Again we will send a message to Dr. Haile so that she can review this prior to patient's appointment next week. Ordered: OV Est Pt Level 4 - 14363 - 25 min Electronically Signed By: GAIL VILLAR MD On: 02/02/2015 07:23 AM Source: [facility] POWERCHART Document Id: [id number] STANT GROCERY STORE MANAGER documented in this encounter Miscellaneous Notes Miscellaneous - Gail Cortez M.D. - 02/01/2015 1:33 PM ASSISTANT GROCERY STORE MANAGER Ambulatory Patient Summary [address] [id number] Visit Information Name: ARCHIE BAZAN [facility] Number: [id number] Current Date: 02/01/2015 13:33:51 Physicians Attending Provider: GAIL VILLAR MD Primary Care Provider: GAIL VILLAR MD ELIDASTEVENARCHIE has been given the following list [...] Appointments Date Time Location Provider 02/02/2015 11:00 [facility] Cardio/Pulm Therapist 02/05/2015 14:15 [facility] Cardiology Mona Haile MD Attention: Contact [...] if you dont have one. Go to [email or web address] and click on Create Your Account. Then, follow the directions to complete the online form. Youll be asked for your [facility] number which you can find at the top of this document. Your Goals/Additional instructions: Source: [facility] POWERCHART Document Id: [id number] STANT GROCERY STORE MANAGER Miscellaneous - Gail Cortez M.D. - 02/01/2015 1:33 PM ASSISTANT GROCERY STORE MANAGER Ambulatory Discharge Medication List [address] [id number] Visit Information Name: ARCHIE BAZAN [facility] Number: [id number] Visit Date: 02/01/2015 13:33:50 Attending Provider: GAIL VILLAR MD Primary Care Provider: GAIL VILLAR MD ELIDASTEVENARCHIE has been given the following list [...] MD Signed On:01-FEB-2015 13:33:36 Additional Information: Source: [facility] POWERCHART Document Id: [id number] STANT GROCERY STORE MANAGER Miscellaneous - Mel Batista, L.P.N. - 02/01/2015 12:42 PM CST Adult Traffic Expert Intake/History Adult Traffic Expert Intake/History Entered On: 02/01/2015 12:45 ASSISTANT GROCERY STORE MANAGER Performed On: 02/01/2015 12:42 ASSISTANT GROCERY STORE MANAGER by MEL BATISTA LPN Intake Chief Complaint [...] Weight Source : Standing scale MEL BATISTA [facility] - 02/01/2015 12:42 ASSISTANT GROCERY STORE MANAGER General Info Information Given By : Patient Languages : Citizen Of [place] Is Patient Female and 13-50 no hysterectomy : MEL Hunter [facility] - 02/01/2015 12:42 ASSISTANT GROCERY STORE MANAGER Subjective Pain Symptoms : MEL Hunter [facility] - 02/01/2015 12:42 ASSISTANT GROCERY STORE MANAGER Dependent Habits Exposure to Tobacco Smoke : Care provider denies smoking in home, Other: never Smoking Status : Never smoker Tobacco 2A : MEL Hunter [facility] - 02/01/2015 12:42 ASSISTANT GROCERY STORE MANAGER Caffeine Use Grid Caffeine Use : Past Type : Coffee, Soft drinks Frequency : Occasionally Amount : 1 cup per week MEL BATISTA [facility] - 02/01/2015 12:42 ASSISTANT GROCERY STORE MANAGER Recreational Drug Use Grid Drug Use : None MEL BATISTA [facility] - 02/01/2015 12:42 ASSISTANT GROCERY STORE MANAGER [facility] Document Id: [id number] ASSISTANT GROCERY STORE MANAGER!35 STANT GROCERY STORE MANAGER documented in this encounter Plan of Treatment Not on filedocumented as of this encounter Visit Diagnoses Not on filedocumented in this encounter Additional Health Concerns Assessment Noted Time PHQ-9 Depression Total Score: 7 06/21/2014 9:20 AM CDT documented as of this encounter
--- OUTSIDE RECORDS SUMMARY | 2021-10-24 10:31 | XMS_ITS | Encounter Summary ---
:1945 Author Organization [facility] Address [address] [place] [address] Care Team Providers Name Role Phone Unavailable Primary Care Provider Unavailable Encounter Details Date Type Department Care Team Description 02/05/[address] [facility] CARDIOLOG Mona Lemus M.D. [address] [place] [address] (Wo rk) Social History Tobacco Use Types [...] Comments Blood Pressure 128/68 02/05/2015 2:12 PM LONG TERM CARE PHARMACIST Pulse 74 02/05/2015 2:12 PM LONG TERM CARE PHARMACIST Temperature - - Respiratory Rate - - Oxygen Saturation - - Inhaled Oxygen Concentration - - Weight 85.8 kg (189 lb 2.5 oz) 02/05/2015 2:12 PM LONG TERM CARE PHARMACIST Height 158 cm (5' 2.21) 02/05/2015 2:12 PM LONG TERM CARE PHARMACIST Body Mass Index 34.37 02/05/2015 2:12 PM LONG TERM CARE PHARMACIST documented in this encounter Medications at Time [...] Lemus M.D. - 02/05/2015 1:50 PM CST [facility] PRIMARY CARE PROVIDER Gail Peguero MD. [...] stress echo which was negative but at alow workload. Given the nature of her symptoms I thought that it was best to proceed to coronary angiography. Initially she was hesitant but subsequently elected to proceed. Coronary angiography revealed a 70 or so percent LAD lesion. The intracoronary assessment of this was abnormal showing a fractional flow reserve of only 0.8. She therefore underwent drug-eluting stent placement. She comes now forfollowup. Ms. Adams states she does feel her [...] That being said, she does have coronary diseaseand these palpitations so I think low-dose beta-rich [...] a day. These prescriptions were sent to herpharmacy. We will see how she does with [...] address accordingly. I attempted to answer Ms. Adams'squestions to the best my ability. Mona Lemus M.D./gene Electronically Signed By: MONA LEMUS MD On: 03/19/2015 09:14 AM Source: [facility] MHSDOLBEYNONRADSYS Document Id: [id number] TERM CARE PHARMACIST documented in this encounter Miscellaneous Notes Miscellaneous - Annie Jones, R.N. - 02/05/2015 2:12 PM CST Adult Mannequin Sander And Finisher Intake/History Document Has Been Updated Adult Mannequin Sander And Finisher Intake/History Entered On: 02/05/2015 14:14 LONG TERM CARE PHARMACIST Performed On: 02/05/2015 14:12 LONG TERM CARE PHARMACIST by ANNIE JONES rn admissions Chief Complaint : Follow up Peripheral Pulse [...] kg/m2 ANNIE JONES RN - 02/05/2015 14:12 LONG TERM CARE PHARMACIST General Info Languages : Northern Irish Is Patient Female and 13-50 no hysterectomy : No ANNIE JONES RN - 02/05/2015 14:12 LONG TERM CARE PHARMACIST Subjective Pain Symptoms : No ANNIE JONES RN - 02/05/2015 14:12 LONG TERM CARE PHARMACIST Dependent Habits Exposure to Tobacco Smoke : Care provider denies smoking in home, Other: never Smoking Status : Never smoker Tobacco 2A : No ANNIE JONES RN - 02/05/2015 14:12 LONG TERM CARE PHARMACIST Caffeine Use Grid Caffeine Use : Past Type : Coffee, Soft drinks Frequency : Occasionally Amount : 1 cup per week ANNIE JONES RN - 02/05/2015 14:12 LONG TERM CARE PHARMACIST Recreational Drug Use Grid Drug Use : None ANNIE JONES RN - 02/05/2015 14:12 LONG TERM CARE PHARMACIST Allergy (As Of: 02/05/2015 14:15:01 LONG TERM CARE PHARMACIST) Allergies (Active) azithromycin Estimated Onset Date: Unspecified ; Created By: PETRA RUSSELL LPN; Reaction Status: Active ; Category: Drug ; Substance: azithromycin ; Type: Allergy ; Updated By: PETRA RUSSELL LPN; Reviewed Date: 02/01/2015 12:40 LONG TERM CARE PHARMACIST Benicar Estimated Onset Date: Unspecified ; Created By: PETRA RUSSELL LPN; Reaction Status: Active ; Category: Drug ; Substance: Benicar ; Type: Allergy ; Updated By: PETRA RUSSELL LPN; Reviewed Date: 02/01/2015 12:40 LONG TERM CARE PHARMACIST Diabetes Intake Do You Have Diabetes : Yes How long have you had diabetes? : More than one year Do you take pills for your diabetes? : Yes Do you check your own blood sugars? : Yes Blood Sugar High : 195 Blood Sugar Low : 80 Have you had low sugar spells? : Yes ANNIE JONES RN - 02/05/2015 14:12 LONG TERM CARE PHARMACIST Source: [facility] POWERCHART Document Id: [id number] LONG TERM CARE PHARMACIST!39 TERM CARE PHARMACIST documented in this encounter Plan of Treatment Not on filedocumented as of this encounter Visit Diagnoses Not on filedocumented in this encounter Additional Health Concerns Assessment Noted Time PHQ-9 Depression Total Score: 7 06/21/2014 9:20 AM CDT documented as of this encounter
--- OUTSIDE RECORDS SUMMARY | 2021-10-24 10:31 | XMS_ITS | Encounter Summary ---
:1945 Author Organization [facility] Address [address] [place] [address] Care Team Providers Name Role Phone Unavailable Primary Care Provider Unavailable Encounter Details Date Type Department Care Team Description 01/15/2015 Hospital Encounter HX [facility] CARDIOLOG Mona Lemus M.D. [address] [place] [address] (Wo rk) Social History Tobacco Use Types [...] Comments Blood Pressure 132/74 01/15/2015 1:17 PM BRIM STRETCHING MACHINE OPERATOR Pulse 78 01/15/2015 1:17 PM BRIM STRETCHING MACHINE OPERATOR Temperature - - Respiratory Rate - - Oxygen Saturation - - Inhaled Oxygen Concentration - - Weight 86.1 kg (189 lb 13.1 oz) 01/15/2015 1:17 PM BRIM STRETCHING MACHINE OPERATOR Height 158 cm (5' 2.21) 01/15/2015 1:17 PM BRIM STRETCHING MACHINE OPERATOR Body Mass Index 34.49 01/15/2015 1:17 PM BRIM STRETCHING MACHINE OPERATOR documented in this encounter Medications at Time [...] a poor historian but states that she gets chest discomfort once in a while. She indicates [...] seconds and it does not radiate. There isno associated nausea, shortness of breath, diaphoresis. She [...] months to maybe a year but getting worse.Her states that just after 300 or 400 feet, patient has to rest and catch her breath. She does feel weak when she is walking up hills and just tired and that has been going on for a few months.She denies any orthopnea, PND, edema. She states [...] Dr. Correa in 2010 for palpitations. No signifi cant arrhythmia I believe was identified. She had an event recorder and all that was found was some benign PVCs. Ms. Adams did undergo a stress echo for this evaluation that was ordered by Dr. Gabriel. The stressportion, she only went 5.5 minutes achieving 6.5 [...] might be an anginal equivalent. The stress echo portion was negative for ischemia at the workload that was achieved which was again 88% of FAC. Her pulmonary pressures did not go up significantly with [...] or an infection of some sort. Her dadhad coronary disease in his 60s and at [...] in upper extremities are equal bilaterally. Lower extremity pulses do appear to be mildly diminished but [...] this at length. She however was extremely hesitant to proceed with this test. I told her [...] would still recommend coronary angiography. She wished to think about it before proceeding. By the time of this dictation, I did get an email communication from the nurse in [place] indicating that the patient was not ready to proceed to coronary angiography butwanted to do a CTA. I did indicate to Dr. Gail Gabriel that there may be an issue with cost as sheis a Medicare patient as well as the issue that she would still need to proceed to coronary angiography if this was abnormal. I will wait to hear from Dr. Gabriel about which way the patient wants to go but then she would like to proceed in [place]. Mona Lemus M.D./gene Electronically Signed By: MONA LEMUS MD On: 03/19/2015 09:10 AM Source: [facility] MHSDOLBEYNONRADSYS Document Id: [id number] STRETCHING MACHINE OPERATOR documented in this encounter Miscellaneous Notes Miscellaneous - Andrea Malhotra R.N. - 01/25/2015 9:50 AM CST *General Message Document Contains Addenda Addendum by GAIL PEGUERO MD on 25 January 2015 10:07:33 BRIM STRETCHING MACHINE OPERATOR From: GAIL PEGUERO MD To: ANDREA MALHOTRA RN; Sent: 01/25/2015 10:07:33 BRIM STRETCHING MACHINE OPERATOR Subject: RE: *General Message Thanks so much! That was fast. Gail From: ANDREA MALHOTRA RN To: GAIL PEGUERO MD; Sent: 01/25/2015 09:50:36 BRIM STRETCHING MACHINE OPERATOR Subject: *General Message Hi Marcial Strange will be going for her cardiac cath tomorrow. Dr. Lemus is ordering the procedure. Marcial will be stopping up here this am for the cath information. Thanks Source: [facility] POWERCHART Document Id: [id number] Electronically signed by Sae [facility] Hospital[facility]oshi Product Inspection Coordinator [id number] at 07/14/2016 6:16 AM CDT Miscellaneous - Andrea Malhotra R.N. - 01/15/2015 1:17 PM CST Adult Equine Intern Intake/History Adult Equine Intern Intake/History Entered On: 01/15/2015 13:21 BRIM STRETCHING MACHINE OPERATOR Performed On: 01/15/2015 13:17 BRIM STRETCHING MACHINE OPERATOR by ANDREA MALHOTRA sanitation supervisor Chief Complaint : Here to review stress echo Onset of Symptoms : No chest pain, SOB States her heart feels weak, feels palpitations off and on. No edema Peripheral Pulse Rate : 78 [...] kg/m2 ANDREA MALHOTRA RN - 01/15/2015 13:17 BRIM STRETCHING MACHINE OPERATOR General Info Information Given By : Patient, Spouse Preferred Communication Mode : Verbal Languages : [place] Is Patient Female and 13-50 no hysterectomy : No ANDREA MALHOTRA RN - 01/15/2015 13:17 BRIM STRETCHING MACHINE OPERATOR Subjective Pain Symptoms : No ANDREA MALHOTRA RN - 01/15/2015 13:17 BRIM STRETCHING MACHINE OPERATOR Dependent Habits Exposure to Tobacco Smoke : Care provider denies smoking in home Smoking Status : Never smoker Tobacco 2A : No Alcohol Use : No ANDREA MALHOTRA RN - 01/15/2015 13:17 BRIM STRETCHING MACHINE OPERATOR Caffeine Use Grid Caffeine Use : Past Type : Coffee, Soft drinks Frequency : Occasionally Amount : 1 cup per week ANDREA MALHOTRA RN - 01/15/2015 13:17 BRIM STRETCHING MACHINE OPERATOR Recreational Drug Use Grid Drug Use : None ANDREA MALHOTRA RN - 01/15/2015 13:17 BRIM STRETCHING MACHINE OPERATOR [facility] Document Id: [id number] BRIM STRETCHING MACHINE OPERATOR!37 STRETCHING MACHINE OPERATOR documented in this encounter Plan of Treatment Not on filedocumented as of this encounter Visit Diagnoses Not on filedocumented in this encounter Additional Health Concerns Assessment Noted Time PHQ-9 Depression Total Score: 7 06/21/2014 9:20 AM CDT documented as of this encounter
--- OUTSIDE RECORDS SUMMARY | 2021-10-24 10:31 | XMS_ITS | Encounter Summary ---
:1945 Author Organization [facility] Address [address] [place] [address] Care Team Providers Name Role Phone Unavailable Primary Care Provider Unavailable Encounter Details Date Type Department Care Team Description 07/28/2014 Hospital Encounter [facility] MIXING HOUSE OPERATOR Gail Garrison M.D. [id number] [place] [phone] (Wo rk) Social History Tobacco Use [...] mouth daily. Take 0 with food for [employer]. documented as of this encounter Progress Notes [...] peanut butter, or nuts and fruit, or bulgarian yogurt. Discussed portion control using the plate method for noon meal, and evening meal and adding a snackthat includes carb and protein for between meals. Encourage a small gradual wt loss of 1-2# per weekrelated to obesity. Taught carb counting using My Food Plan and encouraged no more than 3-4 carb choices per meal and 1-2 carb choices for snacks. Also encouraged adding more physical activity with 3-4days a week. RD will follow as needed. Darcy Gregorio MBA, RD, LD Electronically Signed By: REBECCA GREGORIO On: 08/16/2014 06:10 AM Source: [facility] POWERCHART Document Id: [id number] documented in this encounter Plan of Treatment Not on filedocumented as of this encounter Visit Diagnoses Not on filedocumented in this encounter Additional Health Concerns Assessment Noted Time PHQ-9 Depression Total Score: 7 06/21/2014 9:20 AM CDT documented as of this encounter
--- OUTSIDE RECORDS SUMMARY | 2021-10-24 10:31 | XMS_ITS | Encounter Summary ---
:1945 Author Organization [facility] Address [address] [place] [address] Care Team Providers Name Role Phone Unavailable Primary Care Provider Unavailable Encounter Details Date Type Department Care Team Description 06/07/2013 Hospital Encounter HX [facility] Nicki Holt, MAL, C.N.P., D. N.P. [address] [place] [address] (Wo rk) Social History Tobacco Use Types [...] by mouth daily. Take 0 with food [facility]. documented as of this encounter Nursing Notes Rogers Steiner - 06/07/2013 2:39 PM CDT Snow Shoveler Intake (Adult) Snow Shoveler Intake (Adult) Entered On: 06/07/2013 14:47 CDT Performed On: 06/07/2013 14:39 CDT by ROGERS STEINER head custodian Program Type : Post Program Diabetes Referring Provider : NICKI HOLT DNP, CRIME SCENE ANALYST Special needs : None Method Used for [...] : Attend Community Health Events, Community Walking Program, Follow up with Primary Provider, Other: Educator ROGERS STEINER RN - 06/07/2013 14:39 CDT Source: [employer] Document Id: [id number] CDT!24 documented in this encounter Plan of Treatment Not on filedocumented as of this encounter Visit Diagnoses Not on filedocumented in this encounter Additional Health Concerns Assessment Noted Time PHQ-9 Depression Total Score: 1 06/01/2013 1:42 PM CDT documented as of this encounter
--- OUTSIDE RECORDS SUMMARY | 2021-10-24 10:31 | XMS_ITS | Encounter Summary ---
:1945 Author Organization [facility] Address [address] [place] [address] Care Team Providers Name Role Phone Unavailable Primary Care Provider Unavailable Encounter Details Date Type Department Care Team Description 04/24/2014 Hospital Encounter HX [facility] ME Nicki Holt, MAL, C.N.P., D. N.P. [address] [place] [address] (Wo rk) Social History Tobacco [...] D.N.P., SimoneNLizbeth. - 04/24/2014 12:58 PM CDT [id number] CHIEF COMPLAINT/REASON FOR VISIT Follow up type [...] also re-initiated her back on her glipizide a month ago . She feels like things are going well; however, she again has not made any lifestyle changes. She is aware that other treatment includes more medications and eventually insulin replacement. She would like to avoid further medications and insulin at all costs at this time. 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 She is again coming in today for ongoing evaluation. PAST MEDICAL/SURGICAL [...] length with the patient, I continue to job counselor her regarding the lifestyle health and wellness changes, as it is overall imperative to her health and wellness. We discussed other options outside of medication including insulin long-term, in which I feel this is to the patient's benefit having a discussion regarding this issue as she is quite fearful of having to be on any more medications. I indicated that the only way to really ensure that she has close monitoring. She feels very comfortable with this treatment plan. She is to follow up in the next month's duration. She will be also establishing care with Dr. Gail Haas. Again, I encouraged the patient to continue pursuing the lifestyle modifications that she would like to; however, shedoes require more of an aggressive discussion telling her exactly what she needs to do. 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 She will plan on following up with Dr. Gabriel for ongoing care as it pertainsto her diabetes and also hopeful that she will be able to get her blood sugars back under better control with better weight reduction. She denies having any other further concerns or issues. Patient left clinic in no acute distress. Ready to learn. No apparent learning barriers were identified. Learning preferences include listening. Explained diagnosis and treatment plan. Patient/Child/Caregiver expressed understanding of the content. Corrine LucasN.P./F.N.P/gene cc: Gail Gabriel M.D. [facility] in [address] [address] Electronically Signed By: NICKI HOLT DNP, FNP On: 04/25/2014 06:04 PM Source: [facility] [email or web address] Document Id: [id number] documented in this encounter Miscellaneous Notes Miscellaneous - Nicki Holt D.N.P., C.N.P. - 04/24/2014 2:21 PM CDT Ambulatory Patient Summary [address] [place] [id number] Visit Information Name: ARCHIE BAZAN [facility] Number: [id number] Current Date: 04/24/2014 14:21:18 Physicians [...] Signed By: NICKI HOLT DNP, FNP Signed On:24-APR-2014 14:21:08 Your Allergies & Intolerances [...] detail needed. Your Goals/Additional instructions: Source: [facility] POWERCHART Document Id: [id number] Miscellaneous - Nicki Holt D.N.P., C.N.P. - 04/24/2014 2:21 PM CDT Ambulatory Discharge Medication List [address] [place], [place] [phone] Visit Information Name: ARCHIE BAZAN [facility] Number: [id number] Visit Date: 04/24/2014 14:21:16 Attending [...] emergency. Electronically Signed By: NICKI HOLT DNP, STOKER ERECTOR Signed On:24-APR-2014 14:21:08 Additional Information: Source: [facility] POWERCHART Document Id: [id number] Miscellaneous - Jie Thomason L.P.N. - 04/24/2014 1:15 PM CDT Adult Consumer Relations Specialist Intake/History Adult Consumer Relations Specialist Intake/History Entered On: 04/24/2014 13:19 CDT Performed [...] Preferred Communication Mode : Verbal Languages : Danish Is Patient Female and 13-50 no hysterectomy [...] cup per week JIE THOMASON LPN - 04/24/2014 13:15 CDT Recreational Drug Use Grid Drug Use : None JIE THOMASON LPN - 04/24/2014 13:15 CDT ID Screen Drug Resistant Organism : No Travel Within Last 21 Days : No Contact with someone with Ebola : No JIE THOMASON LPN - 04/24/2014 13:15 CDT Source: [employer] Document Id: [id number] CDT!46 Miscellaneous - Diana Cardoza L.P.NJairo - 03/27/2014 11:39 AM CST Quality Measures Quality Measures Entered On: 04/06/2014 11:39 INFORMATION RECEPTIONIST Performed On: 03/27/2014 11:39 INFORMATION RECEPTIONIST by DIANA CARDOZA LPN Depression PHQ-9 Score : 4 DIANA CARDOZA LPN - 04/06/2014 11:39 INFORMATION RECEPTIONIST Source: [employer] Document Id: [id number] INFORMATION RECEPTIONIST!3 RMATION RECEPTIONIST documented in this encounter Plan of Treatment Not on filedocumented as of this encounter Visit Diagnoses Not on filedocumented in this encounter Additional Health Concerns Assessment Noted Time PHQ-9 Depression Total Score: 1 06/01/2013 1:42 PM CDT documented as of this encounter
--- OUTSIDE RECORDS SUMMARY | 2021-10-24 10:31 | XMS_ITS | Encounter Summary ---
:1945 Author Organization [facility] Address [address] [place] [address] Care Team Providers Name Role Phone Unavailable Primary Care Provider Unavailable Encounter Details Date Type Department Care Team Description 12/11/2014 Hospital Encounter HX [facility] FAMILY ME Olivia Vidales, STUDENT DRIVING INSTRUCTOR, C.N.P. [address] [place], [place] [address] (Wo rk) Social History [...] Vidales, R.N. - 12/11/2014 1:38 PM CDT [id number] CHIEF COMPLAINT/REASON FOR VISIT Painful eye. Sinus congestion. Diabetic follow up. HISTORY OF PRESENT ILLNESS Archie is a very pleasant 69-year-old female who comes into the clinic today with concerns related to redness and mild discomfort in her left eye. She reports her symptoms have been present for 2 to 3 days. She reports her great granddaughter was diagnosed with acute conjunctivitis approximately 1 week ago. She denies any pruritic nature to her left eye. She denies any concerns related to her righteye. She reports intermittent discharge related to a watery consistency as well as a thicker discharge from her left eye. She denies any gritty sensation in her eyes. She also reports concerns related to sinus pain and pressure. She reports intermittent generalized aches and mild cough for approximately 1 week. She denies any known fevers [...] 100. She reports her morning blood sugars rangefrom 100 to 120. She has no record of her evening blood sugars. Her only bedtime blood sugar was 175and that was post her evening meal. She reports mild symptoms related to hypoglycemia prior to her noon meal; however, reports [...] to mild hypoglycemia; however, she reports feeling well after she eats lunch. She denies any concerns with bowels or bladder. VITAL SIGNS Temperature 36.3, heart rate 79, respiration rate 18, blood pressure 136/60, oxygen saturation 97% on room air. PHYSICAL EXAMINATION GENERAL: Alert and oriented. No acute distress. HEENT: Head normocephalic/atraumatic. Eyes: Right eye unremarkable. Left eye with injected sclera. Ascant amount of discolored mucus. No foreign object [...] a viral illness. She was instructed to increaseher non-caffeine oral fluid intake and maintain adequate rest. She was instructed to contact the clinic with worsening or no improvement in symptoms. 2. Acute conjunctivitis. I prescribed Polymyxin B-trimethoprim 10,000 units per 1 mg to be used in her left eye every 3 hours x7 days. [...] understanding of the content. Jose Carlos Vidales N.Payal./gene Electronically Signed By: JOSE CARLOS VIDALES SPRINKLING SYSTEM INSTALLER On: 12/13/2014 10:53 PM Modified by and Electronically Signed by: JOSE CARLOS VIDALES SPRINKLING SYSTEM INSTALLER On: 12/13/2014 10:53 PM Source: [facility] MHSDOLBEYNONRADSYS Document Id: [id number] documented in this encounter Miscellaneous Notes Miscellaneous - Jose Carlos Vidales R.N. - 12/11/2014 2:38 PM CDT Ambulatory Patient Summary [address] [id number] Visit Information Name: ARCHIE BAZAN [facility] Number: [id number] Current Date: 12/11/2014 14:38:49 Physicians Attending Provider: JOSE CARLOS VIDALES SPRINKLING SYSTEM INSTALLER Primary Care Provider: GAIL VILLAR MD ARCHIE [...] hours x 7 day(s) New Routed to [address] [address] *potassium acetate (potassium acetate) 1tab, Oral, once [...] Appointments Date Time Location Provider 01/04/2015 11:15 [facility] Room 1 Attention: Contact your local Clinic [...] you dont have one. Go to [email or web address] and click on Create Your Account. Then, follow the directions to complete the online form. Youll be asked for your [facility] number which you can find at the top of this document. Your Goals/Additional instructions: Source: [facility] POWERCHART Document Id: [id number] Miscellaneous - Jose Carlos Vidales R.N. - 12/11/2014 2:38 PM CDT Ambulatory Discharge Medication List [address] [id number] Visit Information Name: ARCHIE BAZAN [facility] Number: [id number] Visit Date: 12/11/2014 14:38:46 Attending Provider: JOSE CARLOS VIDALES NP Primary Care Provider: GAIL VILLAR MD ARCHIE [...] hours x 7 day(s) New Routed to [address] [address] *potassium acetate (potassium acetate) 1tab, Oral, once [...] emergency. Electronically Signed By: JOSE CARLOS VIDALES SPRINKLING SYSTEM INSTALLER Signed On:11-DEC-2014 14:38:35 Additional Information: Source: [facility] POWERCHART Document Id: [id number] Miscellaneous - Mel Batista L.P.N. - 12/11/2014 1:46 PM CDT Adult Transfill Technician Intake/History Adult Transfill Technician Intake/History Entered On: 12/11/2014 13:50 CDT Performed [...] ft 2 inch(es), 62 inch(es)) MEL BATISTA [facility] - 12/11/2014 13:46 CDT General Info Information Given By : Patient Languages : Lao Is Patient Female and 13-50 no hysterectomy : No MEL BATISTA [facility] - 12/11/2014 13:46 CDT Subjective Pain Symptoms : Yes MEL BATISTA LPN - 12/11/2014 13:46 CDT Pain Scale Pain Scale Verbal 0-10 : Open MEL BATISTA [employer]UST[employer]S PORT DIRECTOR - 12/11/2014 13:46 CDT Pain Pain Assessment Grid Pain 1 Location : Other: sinus Intensity : 2 [facility] 12/11/2014 13:46 CDT Dependent Habits Tobacco Use/Currently [...] Drug Use Grid Drug Use : None EML BATISTA LPN 12/11/2014 13:46 CDT Source: [email or web address] Document Id: [id number] CDT!3 documented in this encounter Plan of Treatment Not on filedocumented as of this encounter Visit Diagnoses Not on filedocumented in this encounter Additional Health Concerns Assessment Noted Time PHQ-9 Depression Total Score: 7 06/21/2014 9:20 AM CDT documented as of this encounter
--- OUTSIDE RECORDS SUMMARY | 2021-10-24 10:31 | XMS_ITS | Encounter Summary ---
:1945 Author Organization [facility] Address [address] [place] [address] Care Team Providers Name Role Phone Unavailable Primary Care Provider Unavailable Encounter Details Date Type Department Care Team Description 01/26/2015 - Hospital Encounter HX RST Mao Ray, 01/27/2015 Lee, Ph.D. [address] [place] [phone] (Wo rk) Social History Tobacco Use Types [...] Taken Comments Blood Pressure 132/65 01/27/2015 9:45 AM NIBP - Value from NAT INSTRUCTOR [employer]. Pulse 72 01/27/2015 9:45 AM Value from artplus. NAT INSTRUCTOR Temperature - - Respiratory Rate 16 01/27/2015 9:30 AM Value from C hartplus. NAT INSTRUCTOR Oxygen Saturation - - Inhaled Oxygen - - Concentration Weight 83 kg (182 lb 15.7 01/27/2015 8:00 AM Value from [employer]. oz) NAT INSTRUCTOR Height - - Body Mass Index 33.25 01/26/2015 7:48 AM NAT INSTRUCTOR documented in this encounter Medications at Time [...] GLUCOSE POCT, B Routine 01/27/2015 6:26 AM Result s for this NAT INSTRUCTOR procedure are i n the results section. ECG Routine 01/27/2015 5:23 AM Results f or this NAT INSTRUCTOR procedure are i n the results section. CBC WITHOUT Routine 01/27/2015 4:11 AM Results f or this DIFFERENTIAL, B NAT INSTRUCTOR procedure ar e in the results section. CREATININE WITH Routine 01/27/2015 4:11 AM Result s for this EGFR, S/P NAT INSTRUCTOR procedure are i n the results section. GLUCOSE POCT, B Routine 01/26/2015 9:30 PM Result s for this NAT INSTRUCTOR procedure are i n the results section. ACT, POCT, B Routine 01/26/2015 1:50 PM Results f or this NAT INSTRUCTOR procedure are i n the results section. GLUCOSE POCT, B Routine 01/26/2015 11:44 AM Resul ts for this NAT INSTRUCTOR procedure are i n the results section. documented in this encounter Results (ABNORMAL) Glucose, POCT (01/27/2015 6:26 AM NAT INSTRUCTOR) [facility] gist Method Time Signature Glucose, POCT, 145 (H) 70 - 140 [facility] B MG/DL [facility] Last Intake > 4 hours [facility] Specimen Anatomical Collection Method Collection Time Receive d Time (Source) Location / / Volume Laterality 01/27/2015 6:26 AM 5 6:26 NAT INSTRUCTOR AM NAT INSTRUCTOR Historical Provider LAB POCT ORDERABLES-MANUAL Performing Organization Address City/State/ZIP Code Phon e Number [facility] - [address] [place], [place] [address] [facility] ECG 12 Lead (01/27/2015 5:23 AM NAT INSTRUCTOR) Specimen (Source) Anatomical Collection Method Collection Time Re ceived Time Location / / Volume Laterality 01/27/2015 5:23 AM NAT INSTRUCTOR [facility] RADIOLOGY SYSTEM - 01/27/2015 6:34 AM NAT INSTRUCTOR [id number] 05:23 VENTRICULAR RATE 62 Normal sinus rhythm Nonspecific ST and T wave abnormality When compared with ECG of 26-JAN-2015 08 :09, No significant change was found [id number]^ADONAY SUÁREZ^RULA Law Procedure Note Rula Jacobsen M.B., Lee Elkins - 04/17 [id number] 05:23 VENTRICULAR RATE 62 Normal sinus rhythm Nonspecific ST and T wave abnormality When compared with ECG of 26-JAN-2015 08 :09, No significant change was found [id number]^ADONAY SUÁREZ^RULA Law Nubia Castañeda M.D., Ph.D. ECG ORDERABLES Performing Organization Address City/State/ZIP Code Phon e Number HX [facility] SYSTEM [address] [place] [address], U SA Creatinine with Estimated GFR (MDRD) (01/27/2015 4:11 AM NAT INSTRUCTOR) Analysis Performed At [facility] logist Time Signature eGFR-Black/Afri >60 >60 [facility] can Maldivian ML/MIN/BSA [facility] Creatinine 0.9 0.6 - 1.1 [facility] MG/DL [facility] eGFR >60 >60 [facility] Non-Black/Afric ML/MIN/BSA LABORATORIES - an Maldivian [facility] Specimen Anatomical Collection Method Collection Time Receive d Time (Source) Location / / Volume Laterality 01/27/2015 4:11 AM 5 4:11 NAT INSTRUCTOR AM NAT INSTRUCTOR Nubia Castañeda M.D., Ph.D. LAB BLOOD ADD-ON Performing Organization Address City/[facility]/ZIP Code Phon e Number [facility] - [address] [place], [place] [address] [facility] (ABNORMAL) CBC without Differential (01/27/2015 4:11 AM NAT INSTRUCTOR) [facility] gist Method Time Signature Hemoglobin 11.3 (L) 12.0 - [facility] 15.5 G/DL [facility] Hematocrit 34.6 (L) 34.9 - [facility] 44.5 % [facility] RBC Distrib 14.0 11.9 - [facility] Width 15.5 % [facility] Platelet Count 205 150 - 450 [facility] X10(9)/L [facility] Leukocytes 8.1 3.5 - [facility] 10.5 LABORATORIES - X10(9)/L [facility] Erythrocytes 3.80 (L) 3.90 - [facility] 5.03 LABORATORIES - X10(12)/L [facility] MCV 91.1 81.6 - [facility] 98.3 FL [facility] Specimen Anatomical Collection Method Collection Time Receive d Time (Source) Location / / Volume Laterality 01/27/2015 4:11 AM 5 4:11 NAT INSTRUCTOR AM NAT INSTRUCTOR Nubia Castañeda M.D., Ph.D. LAB BLOOD ADD-ON Performing Organization Address City/[facility]/ZIP Code Phon e Number [facility] - [address] [place] [phone] [facility] (ABNORMAL) Glucose, POCT (01/26/2015 9:30 PM NAT INSTRUCTOR) [facility] gist Method Time Signature Glucose, 186 (H) 70 - 140 [facility] POCT, B MG/DL [facility] Sample Site, Capillary [facility] Blood Gas, LABORATORIES - POCT [facility] Last Intake 3-4 hours [facility] Specimen Anatomical Collection Method Collection Time Receive d Time (Source) Location / / Volume Laterality 01/26/2015 9:30 PM 5 9:30 NAT INSTRUCTOR PM NAT INSTRUCTOR Historical Provider LAB POCT ORDERABLES-MANUAL Performing Organization Address City/[facility]/ZIP Code Phon e Number [facility]IES - [address] [place] [phone] [facility] ACT (Activated Clotting Time), POCT (01/26/2015 1:50 PM NAT INSTRUCTOR) P athologist Signature Activated 124 84 - 139 [facility] Clotting Time, SEC LABORATORIES - POCT [facility] Specimen Anatomical Collection Method Collection Time Receive d Time (Source) Location / / Volume Laterality 01/26/2015 1:50 PM 5 1:50 NAT INSTRUCTOR PM NAT INSTRUCTOR Historical Provider LAB POCT ORDERABLES - DEVICE Performing Organization Address City/[facility] Phon e Number [facility] - [address] [place] [phone] [facility] Glucose, POCT (01/26/2015 11:44 AM NAT INSTRUCTOR) [facility] gist Method Time Signature Last Intake > 4 hours [facility] Glucose, 113 70 - 140 [facility] POCT, B MG/DL [facility] Sample Site, Capillary [facility] Blood Gas, LABORATORIES - POCT [facility] Specimen Anatomical Collection Method Collection Time Receive d Time (Source) Location / / Volume Laterality 01/26/2015 11:44 01/26/2015 AM NAT INSTRUCTOR 11:44 AM NAT INSTRUCTOR Historical Provider LAB POCT ORDERABLES-MANUAL Performing Organization Address City/State/ZIP Code Phon e Number [facility] - [address] [place], [place] [address] [facility] documented in this encounter Visit Diagnoses Not on filedocumented in this encounter Additional Health Concerns Assessment Noted Time PHQ-9 Depression Total Score: 7 06/21/2014 9:20 AM CDT documented as of this encounter
--- OUTSIDE RECORDS SUMMARY | 2021-10-24 10:31 | XMS_ITS | Encounter Summary ---
:1945 Author Organization [facility] Address [address] [place] [address] Care Team Providers Name Role Phone Unavailable Primary Care Provider Unavailable Encounter Details Date Type Department Care Team Description 03/02/2015 Hospital Encounter HX [facility] MACHINE CEMENTER Gail Garrison M.D. [address] [place] [phone] (Wo rk) Social History Tobacco Use [...] 158 cm (5' 2.21) 03/02/2015 8:46 AM VP ANCILLARY Body Mass Index - - documented in [...] of her program. Patient with stint placed deqfr5bs to 70% blockage. Patient notedshe is feeling better and is not as [...] butter and 2% milk. Noon may be asalad with a bunch of different veggies on it and maybe an egg but seldom meat. Or she may have a 1/2 sandwich with fruit or leftovers from the night before. Supper meal tends to be the larger meal andhas a meat/starch/veggie. Does try and watch how [...] RDN, LD On: 03/02/2015 10:05 AM Source: [facility] POWERCHART Document Id: [id number] ANCILLARY documented in this encounter Plan of Treatment Not on filedocumented as of this encounter Visit Diagnoses Not on filedocumented in this encounter Additional Health Concerns Assessment Noted Time PHQ-9 Depression Total Score: 7 06/21/2014 9:20 AM CDT documented as of this encounter
--- OUTSIDE RECORDS SUMMARY | 2021-10-24 10:31 | XMS_ITS | Encounter Summary ---
:1945 Author Organization [facility] Address [address] [place] [address] Care Team Providers Name Role Phone Unavailable Primary Care Provider Unavailable Encounter Details Date Type Department Care Team Description 05/24/2015 Hospital Encounter HX [facility] gamez M.D. [address] [place] [phone] (Wo rk) Social History Tobacco Use [...] Anxiety disorder NOS Coronary Artery Disease (CAD) Stebbins Vessel Hyperlipidemia/Dyslipidemia Hypothyroidism NOS NIDDM [non-insulin dependent [...] Ordered: OV Est Pt Level 4 - 20589 - 25 min 2. Pain Leg Itz Most likely this is more musculoskeletal since the pain improves as she continues to walk. If it was claudication I think it would continue to get worse. We will continue to monitor. Ordered: OV Est Pt Level 4 - 95834 - 25 min 3. Hyperlipidemia NOS Lipid panel acceptable. ALT normal. Continue statin. 4. Rosacea NOS Patient has follow up with Dermatology next month. We will not make any changes until that appointment. Ordered: OV Est Pt Level 4 - 66879 - 25 min 5. Burning Sensation Skin This is a little better but continues. It is not overly bothersome so we will continue to monitor. Ordered: OV Est Pt Level 4 - 84825 - 25 min Electronically Signed By: NE VILLAR MD On: 05/25/2015 08:37 AM Source: [employer] Document Id: [id number] documented in this encounter Miscellaneous Notes Miscellaneous - Ne Cortez M.D. - 05/24/2015 8:59 AM CDT Ambulatory Patient Summary [address] [id number] Visit Information Name: MARCIAL BAZAN [facility] Number: [id number] Current Date: 05/24/2015 08:59:10 [...] Stress Test Active Coronary Artery Disease (CAD) Stebbins Vessel Active Your Upcoming Appointments Date Time Location Provider 05/25/2015 08:00 [facility] Rehab Srvs [facility] Cardio/Pulm Therapist 06/23/2015 14:30 [facility] Pierce Mcmahon MD, Lon Leblanc [...] if you dont have one. Go to [email or web address] and click on Create Your Account. Then, follow the directions to complete the online form. Youll be asked for your [facility] number which you can find at the top of this document. Your Goals/Additional instructions: Source: [facility] POWERCHART Document Id: [id number] Miscellaneous - Ne Cortez M.D. - 05/24/2015 8:59 AM CDT Ambulatory Discharge Medication List [address] [id number] Visit Information Name: MARCIAL BAZAN [facility] Number: [id number] Visit Date: 05/24/2015 08:59:09 [...] MD Signed On:24-MAY-2015 08:58:48 Additional Information: Source: [facility] POWERCHART Document Id: [id number] Miscellaneous - eN Cortez M.D. - 05/24/2015 8:38 AM CDT Quality Measures Quality Measures Entered On: 05/25/2015 8:38 CDT Performed On: 05/24/2015 8:38 CDT by NE VILLAR MD Diabetes Date of Last Foot Exam : 05/24/2015 CDT NE VILLAR MD - 05/25/2015 8:38 CDT Source: [facility] POWERCHART Document Id: [id number] CDT!3 Miscellaneous - Maria C Wilson L.P.N. - 05/24/2015 8:22 AM CDT Adult Hand Ii Blocker Intake/History Adult Hand Ii Blocker Intake/History Entered On: 05/24/2015 8:27 CDT Performed [...] Information Given By : Patient Languages : Lithuanian Is Patient Female and 13-50 no hysterectomy : No MARIA C WILSON LPN - 05/24/2015 8:22 CDT Subjective Pain Symptoms : No MARIA C WILSON LPN - 05/24/2015 8:22 CDT Dependent Habits [...] Occasionally Amount : 1 cup per week ZHOUMARIA C ELENA Terri NIX - 05/24/2015 8:22 CDT Recreational Drug Use Grid Drug Use : None MARIA C WILSON Terri NIX - 05/24/2015 8:22 CDT Source: [facility] [employer] Document Id: [id number] CDT!41 Miscellaneous - Reanna Castano R.N. - 04/04/2015 3:39 PM CST alprazolam Document Contains Addenda Addendum by SADE HOGAN RN on 05 April 2015 09:00:07 COMMUNITY HEALTH PLANNING DIRECTOR called to [facility] Addendum by NE VILLAR MD on 05 April 2015 06:01:32 COMMUNITY HEALTH PLANNING DIRECTOR From: NE VILLAR MD Sent: 04/05/2015 06:01:32 COMMUNITY HEALTH PLANNING DIRECTOR Subject: RE:alprazolam Approved Order:ALPRAZolam (Xanax 0.5 mg oral tablet) 1 tab(s) PO q8hr Take for anxiety. Qty: 25 tab(s) Refills: 1 PRN Anxiety Don't Print - called to pharmacy (Rx) [facility] Signed by NE VILLAR MD 04/05/2015 06:01:30 From: REANNA CASTANO RN To: NE VILLAR MD; REANNA CASTANO RN; Sent: 04/04/2015 15:39:20 COMMUNITY HEALTH PLANNING DIRECTOR Subject: alprazolam On hold pending signature Order:ALPRAZolam (Xanax 0.5 mg oral tablet) 1 tab(s) PO q8hr Take for anxiety. Qty: 25 tab(s) Refills: 1 PRN Anxiety Don't Print - called to pharmacy (Rx) [facility] [place] 02/22/15 Last written 11/23/14 #25 with 1 refill. Source: [facility] [employer] Document Id: [id number] Electronically signed by Conversion, [facility] Activities Director Scouting [id number] at 07/12/2016 8:28 PM CDT Miscellaneous - Sade Hogan R.N. - 03/09/2015 11:17 AM CST triage call Document Contains Addenda Addendum by REANNA CASTANO RN on 12 March 2015 06:54:16 COMMUNITY HEALTH PLANNING DIRECTOR noted Addendum by NE VILLAR MD on 10 March 2015 21:08:11 COMMUNITY HEALTH PLANNING DIRECTOR From: NE VILLAR MD To: SADE HOGAN RN; Sent: 03/10/2015 21:08:11 COMMUNITY HEALTH PLANNING DIRECTOR Subject: RE: triage call Agree with plan. From: SADE HOGAN RN To: NE VILLAR MD; SADE HOGAN RN; Sent: 03/09/2015 11:17:45 COMMUNITY HEALTH PLANNING DIRECTOR Subject: triage call Pt called to ask [...] tea this am. Advised increased liquids. [facility] Document Id: [id number] Electronically signed by Conversion, [facility] Activities Director Scouting [id number] at 07/12/2016 8:28 PM CDT documented in this encounter Plan of Treatment Not on filedocumented as of this encounter Procedures Procedure Name Priority Date/Time Associated Comments Diagnosis LIPID PANEL, S Routine 05/24/2015 8:11 Results fo r this AM CDT procedure are i n the results section. ALANINE AMINOTRANSFERASE Routine 05/24/2015 8:11 Results for this (ALT), S/P AM CDT procedure are i n the results section. HEMOGLOBIN A1C, B Routine 05/24/2015 8:11 Results for this AM CDT procedure are i n the results section. BASIC METABOLIC PANEL, Routine 05/24/2015 8:11 Re sults for this S/P AM CDT procedure are [...] M.D. LAB BLOOD ADD-ON Performing Organization Address City/[facility]/ZIP Code Phon e Number POWERCHART (ABNORMAL) BMP (Basic Metabolic Panel) (05/24/2015 8:11 AM CDT) P athologist Signature Sodium, S 142.3 135.0 - POWERCHART 145.0 MML Potassium, S 4.3 3.6 - 4.8 POWERCHART MMOLL Chloride, S 106 98 - 107 POWERCHART MMOLL CO2 Total 25.5 23.0 - POWERCHART 29.0 MMOLL Glucose, 122 (H) 70 - 99 POWERCHART Fasting, S MGDL BUN (Blood Urea 17 7 - 18 POWERCHART Nitrogen), S MGDL Creatinine 0.88 0.60 - POWERCHART 1.30 MGDL Calcium, Total, 9.6 8.8 - 10.2 POWERCHART S MGDL Anion Gap 11 10 - 20 POWERCHART MMOLL HXeGFR (MDRD) >60 >=60 POWERCHART [id number] eGFR >60 >=60 POWERCHART Black/ [id number] Cymro Specimen (Source) Anatomical Collection Method Collection Time [...] HDL 43 (L) >=50 MGDL POWERCHART Comment: 2013 National Lipid Association recommen dations for HDL-C [...] FH and FDB is available [facility]: FH/ADH Genetic Reflex Case el (test ADHP). Acquired (non-genetic) causes of markedly increased LDL cholesterol include cholestatic liver disease due to the presence of LpX. If a genetic form of hypercholesterolemia is suspected, family studies including biochemical testing fo r lipids (total cholesterol,triglycerides, LDL cholesterol and HDL cholesterol) are recommended. ??Please contact the laboratory at or the on-line test catalog at [employer] for information about how to order these [...]
--- OUTSIDE RECORDS SUMMARY | 2021-10-24 10:31 | XMS_ITS | Encounter Summary ---
:1945 Author Organization [facility] Address [address] [place] [address] Care Team Providers Name Role Phone Unavailable Primary Care Provider Unavailable Encounter Details Date Type Department Care Team Description 06/21/2014 Hospital Encounter HX [facility] Nicki Anthony, MAL, C.N.P., D. N.P. [address] [place] [address] (Wo rk) Social History Tobacco [...] Milner R.N. - 06/21/2014 8:50 AM CDT [id number] Marcial is a very pleasant 69-year-old female who comes in today for her subsequent Medicare Annual Wellness visit. PHYSICAL EXAMINATION VITAL SIGNS: Weight is 86.1 kg, height 158 cm. Blood pressure 152/70 on the right arm with the largecuff, second reading after 1 hour, 124/80, right arm, large cuff. Body mass index of 34, slightly upfrom last year. OBSTRUCTIVE SLEEP APNEA ASSESSMENT: Neck circumference is 41 cm. Total sleep apnea clinical score of3. ALLERGIES 1. Erythromycin. 2. Benicar. MEDICATIONS 1. Aspirin 81 mg oral tablet 1 tablet by mouth daily. 2. Alprazolam 0.5 mg oral tablet 1/2 tablet by mouth every 8 hours as needed for anxiety, she seldomis using this. 3. Vitamin D3, 5000 international [...] for several years. They live in their own home in [place]. She is retired. 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 They do have a pet, a poodle in the home. She does eat a well-balanced diet on most days, tries to pay attention to a diabetic diet and [...] Her younger brother age 67, recently of abrain aneurysm. He had a history of prostate cancer. He had diabetes and high blood pressure as well. COGNITIVE IMPAIRMENT A Mini-Mental State exam was administered. She scored a 27. Interpretation: Negative for cognitive impairment. POTENTIAL RISK FOR DEPRESSION The PHQ-9 score is 7, indicating mild depression. She states she does have difficulty sleeping most nights. She usually goes to bed with the intentions of getting 8 hours of sleep but she states reallyof those 8 hours, she really only sleeps [...] devices. Her responses to the Medicare Annual Wellnesshealth questionnaire were all benign for hearing deficit. VISION SCREEN: Last eye exam was March 2013. Today reading the Snellen eye chart with corrective lenses right eye 20/40, left eye 20/25, both eyes 20/20. She states that when she covers her right eye with her left hand, especially after a [...] She has cleanings every 6 months. She recently had a upper tooth on the left extracted due to pain. ACTIVITIES OF DAILY LIVING: She is independent of all activities of daily living. She is able to manage her own medications. She continues to drive without restrictions and wears her seatbelt 100% of the time. FALL RISK: She denies any falls in the past year. Today she was observed for gait and steadiness andwalking in the exam room and she did so in less than 10 seconds without difficulty. She feels her home is well lit. Loose rugs and mats have been removed and there are adequate handrails and grab bars where needed. HOME SAFETY: The house is without working smoke detectors or carbon monoxide detectors. I have encouraged her to, as soon as possible, have new batteries put into these, asking her 2 sons who are life insurance underwriter, to facilitate this for her. HEALTHCARE PROVIDERS AND LIST OF SUPPLIERS Her primary care provider, she is establishing care with Dr. Gail Zazueta. This is comingup within the next month. Her eye doctor is Dr. Sefl at [place]. She is interested in seeing an rolling mill plugger this next time so I have encouraged her to schedule this appointment at [facility] with Dr. Novoa or Dr. Serrano. PRESCRIPTION REFILLS Through [facility] in [place] or the [facility] EDUCATION COUNSELING AND RECOMMENDATIONS 1. Today Marcial was given a handout from the [employer] with a list of resources available to her as well as a web site and phone number for contacting. 2. She was given a handout from [facility] on care of her feet specifically for diabetic patients. 3. The Power of Prevention educational booklet from [facility]. Page 40 of this booklet was completed today with her most recent preventative service dates, immunization dates, and recommendations forupdate. Her last mammogram was May 04, 2013. [...] have encouraged her to complete this and return it to be scanned into her medical record. FOLLOWUP FOR DR. ZAZUETA 1. I have ordered a mammogram, bone density screen and a FIT screen today to be completed at her upcoming visit, also the Prevnar 13 was given. 2. She is due for diabetic education refresher. She is considering starting on insulin. She would like to discuss this and I have encouraged her to have her diabetic education refresher done at the [facility] as this is no longer done in [place]. 3. She describes to me some visual [...] VILLAR MD On: 06/28/2014 07:38 AM Source: [facility] MHSDOLBEYNONRADSYS Document Id: [id number] documented in this encounter Procedure Notes Dianne London R.N. - 06/21/2014 9:29 AM CDT Vision Testing Vision Testing Entered On: 06/21/2014 9:37 CDT Performed On: 06/21/2014 9:29 CDT by DIANNE LONDON RN Vision Testing Corrective Lenses : Glasses Eye, Right with Correction : 20/40 Eye, Left w/Correction : 20/25 Eyes, Both with Correction : 20/20 DIANNE LONDON RN - 06/21/2014 9:29 CDT Source: [employer] Document Id: [id number] CDT!6 documented in this encounter Miscellaneous Notes [...] LONDON RN - 06/21/2014 10:28 CDT Source: [employer] Document Id: [id number] CDT!8 Miscellaneous - Dianne London RJairoNJairo - [...] LONDON RN - 06/21/2014 9:20 CDT Source: [employer] Document Id: [id number] CDT!13 Dianne Ireland R.N. - 06/21/2014 9:17 AM CDT Obstructive Sleep Apnea Obstructive Sleep Apnea Entered On: 06/21/2014 9:20 CDT Performed On: 06/21/2014 9:17 CDT by DIANNE LONDON RN JUAN Screening Known Obstructive Sleep Apnea : No - NOT diagnosed with JUAN DIANNE LONDON RN - 06/21/2014 9:17 CDT JUAN Assessment [...] LONDON RN - 06/21/2014 9:17 CDT Source: [employer] Document Id: [id number] CDT!10 Dianne Ireland R.N. - 06/21/2014 9:08 AM CDT Health Assessment Health Assessment Entered On: 06/21/2014 9:17 CDT Performed On: 06/21/2014 9:08 CDT by DIANNE LONDON RN Health Assessment [...] None Behavioral Health Screen/Safety Assmt : No Tenriism Preference : DIANNE Pace RN - 06/21/2014 9:08 CDT Advance Directive Advanced Directives : No Advance Directive Additional Information : No DIANNE LONDON RN - 06/21/2014 9:08 CDT Educ Needs Learning Style Preference Adult Grid Patient : Verbal explanation Family : None DIANNE LONDON RN - 06/21/2014 9:08 CDT Source: [employer] Document Id: [id number] CDT!39 Miscellaneous - Dianne London R.N. - 06/21/2014 8:52 AM CDT Adult Architectural Manager Intake/History Adult Architectural Manager Intake/History Entered On: 06/21/2014 9:08 CDT Performed [...] LONDON RN - 06/21/2014 8:52 CDT Source: [facility] [employer]CHART Document Id: [id number] CDT!41 documented in this encounter Plan of Treatment Not on filedocumented as of this encounter Visit Diagnoses Not on filedocumented in this encounter Additional Health Concerns Assessment Noted Time PHQ-9 Depression Total Score: 7 06/21/2014 9:20 AM CDT documented as of this encounter
--- OUTSIDE RECORDS SUMMARY | 2021-10-24 10:31 | XMS_ITS | Encounter Summary ---
:1945 Author Organization [facility] Address [address] [place] [address] Care Team Providers Name Role Phone Unavailable Primary Care Provider Unavailable Encounter Details Date Type Department Care Team Description 11/22/2014 Hospital Encounter HX [facility] Gail Cortez M.D. [address] [phone] (Wo rk) Social History Tobacco Use Types [...] Letter 27 November 2014 ARCHIE BAZAN [address] [place] [id number] Dear ARCHIE BAZAN, Please review your results [...] Calculated (mg/dL) 77 11/22/2014 (L) 88 12/12/2013 cz1220 - <=129 Chol/HDL Ratio 3 11/22/2014 3 12/12/2013 Hgb A1c (% A1C) (H) 7.5 11/22/2014 (H) 7.6 03/13/2014 - <=5.6 Sincerely, GAIL VILLAR [address] [id number] Electronic Signature Electronically Signed By: GAIL VILLAR MD On: 27 November 2014 This document has images extracted. Source: [facility] POWERCHART Document Id: [id number] Electronically signed by Conversion, [facility] Nuclear Operations Specialist [id number] at 07/14/2016 3:43 AM CDT documented in this encounter Plan of Treatment Not on filedocumented as of this encounter Procedures Procedure Name Priority Date/Time Associated Comments Diagnosis ALBUMIN, RANDOM, U Routine 11/22/2014 7:58 AM Res ults for this CDT procedure are i n the results section. LIPID PANEL, S Routine 11/22/2014 7:48 AM Results for this CDT procedure are i n the results section. HEMOGLOBIN A1C, B Routine 11/22/2014 7:48 AM Resu lts for this CDT procedure are i n the results section. BASIC METABOLIC Routine 11/22/2014 7:48 AM Result s for this PANEL, S/P CDT procedure are [...] 10 - 20 POWERCHART MMOLL BUN (Blood Urea 18 7 - 18 POWERCHART Nitrogen), S MGDL Chloride, S 107 98 - 107 POWERCHART MMOLL CO2 Total 24.6 23.0 - POWERCHART 29.0 MMOLL Creatinine 0.89 0.60 - POWERCHART 1.30 MGDL Glucose, 148 (H) 70 - 99 POWERCHART Fasting, S MGDL Calcium, Total, 9.3 8.8 - 10.2 POWERCHART S MGDL Sodium, S 144.4 135.0 - POWERCHART 145.0 MML Potassium, S 4.3 3.6 - 4.8 POWERCHART MMOLL HXeGFR (MDRD) >60 >=60 POWERCHART [id number] eGFR >60 >=60 POWERCHART Black/ [id number] Mongolian Specimen (Source) Anatomical Collection Method Collection Time [...] Triglycerides 162 (H) <=149 MGDL POWERCHART Comment: 2013 National Lipid Association recommen dations for Triglycerides [...] for FH and FDB is available [facility]: FH/ADH Genetic Reflex Case el (test ADHP). Acquired (non-genetic) causes of markedly increased LDL cholesterol include cholestatic liver disease due to the presence of LpX. If a genetic form of hypercholesterolemia is suspected, family studies including biochemical testing fo r lipids (total cholesterol,triglycerides, LDL cholesterol and HDL cholesterol) are recommended. ??Please contact the laboratory at or the on-line test catalog at [email or web address] for information about how to order these [...]
--- OUTSIDE RECORDS SUMMARY | 2021-10-24 10:31 | XMS_ITS | Encounter Summary ---
:1945 Author Organization [facility] Address [address] [place] [address] Care Team Providers Name Role Phone Unavailable Primary Care Provider Unavailable Encounter Details Date Type Department Care Team Description 07/24/[address] [facility] Gail Garrison M.D. [address] [place] [phone] (Wo rk) Social History Tobacco Use [...] her diabetes. She also has a couple other concerns. In regards to her diabetes, last A1c was 6.9 in May. She had this completed elsewhere. She checks her blood sugar zero to two times per day. She saw the clinical educator in March and would like to see a dietitian. She also needs a new script for diabetic shoes and custom inserts. Patient also notes occasional left-sided chest pain which sometimes will feel different to maybe like a tickle. It occurs with breathing. It has been ongoing for months and occurs both with rest and activity. It lasts 4 to 5 breaths. There [...] to come up with the right to word.She will know what she wants to say [...] Daughter:Positive: Diabetes mellitus; Migraine HEALTH MAINTENANCE Colon 2008 Mammo today DXA today SYSTEMS REVIEW As per HPI. Patient denies any visual changes, numbness, or tingling. She reports her mood fluctuates. It has been like this for a couple of years. She cannot identify a trigger. She will use Xanax ifnecessary. Patient also will have flares of rosacea [...] November. We will get her set up with the dietitian. At this point, I feel her chest symptoms are likely chest wall related. Ordered: OV Est Pt Level 4 - 62120 - 25 min 2. Complaint Memory Patient's symptoms are not progressing and do not sound overly severe. She denied any more significant problems. At this point we will continue to monitor. Ordered: OV Est Pt Level 4 - 57184 - 25 min 3. Rosacea NOS Clindamycin gel was refilled. Ordered: OV Est Pt Level 4 - 17218 - 25 min 4. Hyperlipidemia NOS Patient will be due for lab work in November. Ordered: OV Est Pt Level 4 - 61696 - 25 min 5. Hypothyroidism NOS TSH will be due in November. Ordered: OV Est Pt Level 4 - 00429 - 25 min Orders: clindamycin topical, 1 shauna, Topical, 2xDay, rosacea, # 30 gm, 3 Refill(s), Maintenance, Pharmacy: [facility] Consult to Invasive Physician/Nutrition - Clinic Electronically Signed By: GAIL VILLAR MD On: 07/24/2014 02:05 PM Source: [facility] POWERCHART Document Id: [id number] documented in this encounter Miscellaneous Notes Miscellaneous - Gail Cortez M.D. - 07/24/2014 10:41 AM CDT Ambulatory Patient Summary [address] [place] [id number] Visit Information Name: ARCHIE BAZAN [facility] Number: [id number] Current Date: 07/24/2014 10:41:43 Physicians [...] times a day rosacea New Routed to [address] [address] glipiZIDE (glipiZIDE 5 mg oral [...] Appointments Date Time Location Provider 07/24/2014 11:00 [facility] Bone Dens [facility] BD Rm 1 07/24/2014 11:30 [facility] Mammo [facility] MA Room 1 Attention: Contact your local Clinic if further appointment detail needed. Your Goals/Additional instructions: Future Appointment: _ Lab: _ Radiology: _ Need Prior Auth: _ NO Prior Auth: _ Consult: Invasive Physician Release of MR_ PHI_ Source: [facility] POWERCHART Document Id: [id number] Miscellaneous - Gail Cortez M.D. - 07/24/2014 10:41 AM CDT Ambulatory Discharge Medication List [address] [place] [id number] Visit Information Name: ARCHIE BAZAN [facility] Number: [id number] Visit Date: 07/24/2014 10:41:41 Attending [...] times a day rosacea New Routed to [address] [address] glipiZIDE (glipiZIDE 5 mg oral tablet) 0.5 [...] MD Signed On:24-JUL-2014 10:41:01 Additional Information: Source: [facility] POWERCHART Document Id: [id number] Miscellaneous - Nya Wilson L.P.N. - 07/24/2014 10:00 AM CDT Adult Drapery Hemmer Automatic Intake/History Adult Drapery Hemmer Automatic Intake/History Entered On: 07/24/2014 10:03 CDT Performed [...] Information Given By : Patient Languages : Scottish Is Patient Female and 13-50 no hysterectomy [...] WILSON LPN - 07/24/2014 10:00 CDT Source: [employer] Document Id: [id number] CDT!40 documented in this encounter Plan of Treatment Not on filedocumented as of this encounter Visit Diagnoses Not on filedocumented in this encounter Additional Health Concerns Assessment Noted Time PHQ-9 Depression Total Score: 7 06/21/2014 9:20 AM CDT documented as of this encounter
--- OUTSIDE RECORDS SUMMARY | 2021-10-24 10:31 | XMS_ITS | Encounter Summary ---
:1945 Author Organization [facility] Address [address] [place] [address] Care Team Providers Name Role Phone Unavailable Primary Care Provider Unavailable Encounter Details Date Type Department Care Team Description 12/18/2014 Hospital Encounter [facility] Olivia Vidales, FISH TRAPPER, C.N.P. [address] [place], [place] [address] (Wo rk) Social History [...] Comments Blood Pressure 140/69 12/18/2014 3:19 PM WELDER 2ND SHIFT Pulse 66 12/18/2014 3:19 PM WELDER 2ND SHIFT Temperature - - Respiratory Rate 16 12/18/2014 3:19 PM WELDER 2ND SHIFT Oxygen Saturation - - Inhaled Oxygen Concentration - - Weight - - Height 158 cm (5' 2.21) 12/18/2014 3:19 PM WELDER 2ND SHIFT Body Mass Index - - documented in this encounter Medications at Time of Discharge Medication Sig Dispensed Refills Start Date End Date ASPIRIN ORAL Take 81 mg by mouth daily. Take 0 with food for heart health. documented as of this encounter Progress Notes Jose Carlos Vidales, R.N. - 12/18/2014 3:02 PM CST [id number] CHIEF COMPLAINT/REASON FOR VISIT Conjunctivitis follow up. HISTORY OF PRESENT ILLNESS Archie is a very pleasant 69-year-old female who comes into the clinic today with concerns regardingongoing redness and discomfort in her bilateral eyes. She was seen in primary care on December 11, 2014 related to redness and discomfort in her left eye. She reported a thicker discharge related toher left eye. She denied any concerns related to her right eye. She denied any gritty sensation in her eyes. She was prescribed Polymyxin B-trimethoprim 10,000 units per 1 mg, 1 drop in the left eye every 3 hours x7 days. She is here today reporting the drops initially appeared to help the redness anddischarge in her left eye. She reports over the last several days she is noting more redness and a watery consistency in her right eye. She reports her bilateral eyelids are swollen and she has a gritty sensation intermittently. She reports her eye discomfort has been present for approximately 1week. She reports a mattery consistency in both her eyes in the morning. She denies any purulent or thick discharge from either eye. She also reports concerns related to an intermittent sore throat over the last 2 weeks. She reports potential fevers for 1 day over the last 2 weeks. She denies any headaches or abdominal pain. She denies any rhinorrhea or ear pain. She is here today for further evaluation. She has no other concerns today. MEDICATIONS Reviewed and reconciled. New medication today; erythromycin 0.5% ophthalmic ointment 0.5 inches botheyes 4 times per day times 5 to [...] frontal sinus tenderness. She denies rhinorrhea or ear pain. VITAL SIGNS Temperature 36.4, heart rate 66, [...] possibility that a viral conjunctivitis may take 10to 14 days to resolve. She verbalized understanding of this plan. I instructed her to contact the clinic with worsening or no improvement in symptoms. I instructed her to use warm compresses on her eyefor symptom management. 2. Throat pain: At this time, I believe she has a viral illness. She was instructed to increase her non-caffeine oral fluid intake and maintain adequate sleep. She will follow up in primary care with worsening or no improvement in symptoms. She verbalized understanding of this plan. All questions wereanswered. She left in no acute distress. Ready to learn. No apparent learning barriers were identified. Learning preferences include listening. Explained diagnosis and treatment plan. Patient/Child/Caregiver expressed understanding of the content. Jose Carlos Vidales NRegina/gene Electronically Signed By: JOSE CARLOS VIDALES ORGANIZATIONAL RESEARCH CONSULTANT On: 12/19/2014 02:06 PM Modified by and Electronically Signed by: JOSE CARLOS VIDALES ORGANIZATIONAL RESEARCH CONSULTANT On: 12/19/2014 02:06 PM Source: [facility] MHSDOLBEYNONRADSYS Document Id: [id number] ER 2ND SHIFT documented in this encounter Miscellaneous Notes Miscellaneous - Jose Carlos Vidales R.N. - 12/18/2014 4:17 PM CST Ambulatory Patient Summary [address] [id number] Visit Information Name: ARCHIE BAZAN [facility] Number: [id number] Current Date: 12/18/2014 16:17:12 Physicians Attending Provider: JOSE CARLOS VIDALES NP Primary Care Provider: NE VILLAR MD ARCHIE [...] Eyes(Both), four timesa day New Routed to [facility] [address] [id number] glipiZIDE (glipiZIDE 5 mg oral tablet) 1 [...] Signed By: JOSE CARLOS VIDALES NP Signed On:18-DEC-2014 16:17:04 Your Allergies & Intolerances [...] Appointments Date Time Location Provider 01/04/2015 11:15 [facility] Echo [facility] Room 1 Attention: Contact your local Clinic [...] if you dont have one. Go to [email or web address] and click on Create Your Account. Then, follow the directions to complete the online form. Youll be asked for your [facility] number which you can find at the top of this document. Your Goals/Additional instructions: Source: [facility] POWERCHART Document Id: [id number] ER 2ND SHIFT Miscellaneous - Jose Carlos Vidales R.N. - 12/18/2014 4:17 PM CST Ambulatory Discharge Medication List [address] [id number] Visit Information Name: ARCHIE BAZAN [facility] Number: [id number] Visit Date: 12/18/2014 16:17:10 Attending Provider: JOSE CARLOS VIDALES ORGANIZATIONAL RESEARCH CONSULTANT Primary Care Provider: NE VILLAR MD ARCHIE [...] Eyes(Both), four timesa day [facility] [address] [id number] glipiZIDE (glipiZIDE 5 mg oral tablet) 1 [...] emergency. Electronically Signed By: JOSE CARLOS VIDALES ORGANIZATIONAL RESEARCH CONSULTANT Signed On:18-DEC-2014 16:17:04 Additional Information: Source: [facility] POWERCHART Document Id: [id number] ER 2ND SHIFT Miscellaneous - Nya Wilson, L.P.N. - 12/18/2014 3:19 PM CST Adult Photographic Process Attendant Intake/History Adult Photographic Process Attendant Intake/History Entered On: 12/18/2014 15:22 WELDER 2ND SHIFT Performed On: 12/18/2014 15:19 WELDER 2ND SHIFT by NYA WILSON LPN Intake Chief Complaint : blood sugars running 170-195 before breakfast. After eating she has not rechecked.Recheck pink eye- and cold symptoms Ambulatory Intake [...] inch(es)) NYA WILSON LPN - 12/18/2014 15:19 WELDER 2ND SHIFT General Info Information Given By : Patient Languages : Romanian Is Patient Female and 13-50 no hysterectomy : No NYA WILSON LPN - 12/18/2014 15:19 WELDER 2ND SHIFT Subjective Pain Symptoms : No NYA WILSON LPN - 12/18/2014 15:19 WELDER 2ND SHIFT Dependent Habits Tobacco Use/Currently Using : No Exposure to Tobacco Smoke : Care provider denies smoking in home Smoking Status : Never smoker Alcohol Use : No NYA WILSON LPN - 12/18/2014 15:19 WELDER 2ND SHIFT Caffeine Use Grid Caffeine Use : Past Type : Coffee, Soft drinks Frequency : Occasionally Amount : 1 cup per week NYA WILSON LPN - 12/18/2014 15:19 WELDER 2ND SHIFT Recreational Drug Use Grid Drug Use : None NYA WILSON LPN - 12/18/2014 15:19 WELDER 2ND SHIFT Source: [employer] Document Id: [id number] WELDER 2ND SHIFT!33 ER 2ND SHIFT documented in this encounter Plan of Treatment Not on filedocumented as of this encounter Visit Diagnoses Not on filedocumented in this encounter Additional Health Concerns Assessment Noted Time PHQ-9 Depression Total Score: 7 06/21/2014 9:20 AM CDT documented as of this encounter
--- OUTSIDE RECORDS SUMMARY | 2021-10-24 10:31 | XMS_ITS | Encounter Summary ---
:1945 Author Organization [facility] Address [address] [place] [address] Care Team Providers Name Role Phone Unavailable [...]
--- OUTSIDE RECORDS SUMMARY | 2021-10-24 10:31 | XMS_ITS | Encounter Summary ---
:1945 Author Organization [facility] Address [address] [place] [address] Care Team Providers Name Role Phone Unavailable Primary Care Provider Unavailable Encounter Details Date Type Department Care Team Description 04/17/2015 Hospital Encounter HX [facility] Gail gamez M.D. [address] [place] [phone] (Wo rk) Social History Tobacco Use [...] Comments Blood Pressure 125/56 04/17/2015 2:29 PM MANAGER HEMATOLOGY Pulse 70 04/17/2015 2:29 PM MANAGER HEMATOLOGY Temperature - - Respiratory Rate 16 04/17/2015 2:29 PM MANAGER HEMATOLOGY Oxygen Saturation - - Inhaled Oxygen Concentration - - Weight 86.4 kg (190 lb 7.6 oz) 04/17/2015 2:29 PM MANAGER HEMATOLOGY Height 158 cm (5' 2.21) 04/17/2015 2:29 PM MANAGER HEMATOLOGY Body Mass Index 34.61 04/17/2015 2:29 PM MANAGER HEMATOLOGY documented in this encounter Medications at Time [...] headache, other associated pain, or shortness of breath.She is most worried about shingles. In regards [...] Anxiety disorder NOS Coronary Artery Disease (CAD) [place] Hyperlipidemia/Dyslipidemia Hypothyroidism NOS NIDDM [non-insulin dependent [...] she try using the Clindagel on her facemore consistently and see if that helps. She was advised to call if she does develop a rash. Ordered: OV Est Pt Level 3 - 89164 - 15 min 2. DM2 We are not going to make any changes to patient's blood sugar regimen today. We discussed that she can take the glipizide when she remembers it. I also discussed the potential of changing the glipizide to extended release so she only takes it once a day but she was okay with leaving it as it was. Ordered: OV Est Pt Level 3 - 68670 - 15 min Electronically Signed By: GAIL VILLAR MD On: 04/17/2015 03:19 PM Source: [facility] POWERCHART Document Id: [id number] GER HEMATOLOGY documented in this encounter Miscellaneous Notes Miscellaneous - Gail Cortez M.D. - 04/17/2015 3:06 PM MANAGER HEMATOLOGY Ambulatory Patient Summary [address] [id number] Visit Information Name: ARCHIE BAZAN [facility] Number: [id number] Current Date: 04/17/2015 15:06:02 [...] Stress Test Active Coronary Artery Disease (CAD) [place] Active Your Upcoming Appointments Date Time Location Provider 04/18/2015 08:00 [facility] Cardio/Pulm Therapist 04/20/2015 08:00 [facility] Cardio/Pulm Therapist 05/24/2015 08:00 [facility] 05/24/2015 08:15 [facility] Gail Gabriel MD 06/23/2015 14:30 [facility] Pierce Mcmahon MD, Lon Leblanc Attention: Contact [...] if you dont have one. Go to [email or web address] and click on Create Your Account. Then, follow the directions to complete the online form. Youll be asked for your [facility] number which you can find at the top of this document. Your Goals/Additional instructions: Source: [facility] POWERCHART Document Id: [id number] GER HEMATOLOGY Miscellaneous - Gail Cortez M.D. - 04/17/2015 3:06 PM MANAGER HEMATOLOGY Ambulatory Discharge Medication List [address] [place] [id number] Visit Information Name: ARCHIE BAZAN [facility] Number: [id number] Visit Date: 04/17/2015 15:06:00 [...] the Following Medications: Medication list as of 03-01-16 15:06 Attention: If you have any medications [...] MD Signed On:17-APR-2015 15:04:53 Additional Information: Source: [facility] POWERCHART Document Id: [id number] GER HEMATOLOGY Miscellaneous - Petra Lopez L.P.N. - 04/17/2015 2:29 PM CST Adult Floor Steward/Stewardess Intake/History Adult Floor Steward/Stewardess Intake/History Entered On: 04/17/2015 14:34 MANAGER HEMATOLOGY Performed On: 04/17/2015 14:29 MANAGER HEMATOLOGY by PETRA LOPEZ LPN Intake Chief Complaint [...] kg/m2 PETRA LOPEZ LPN - 04/17/2015 14:29 MANAGER HEMATOLOGY General Info Information Given By : Patient Languages : Chinese Is Patient Female and 13-50 no hysterectomy : No PETRA LOPEZ LPN - 04/17/2015 14:29 MANAGER HEMATOLOGY Subjective Pain Symptoms : No PETRA LOPEZ LPN - 04/17/2015 14:29 MANAGER HEMATOLOGY Dependent Habits Exposure to Tobacco Smoke : Care provider denies smoking in home, Other: never Smoking Status : Never smoker Tobacco 2A : No Tobacco Use/Currently Using : No Tobacco Use/Last 30 Days : No Tobacco Use/Last 12 months : No Alcohol Use : No PETRA LOPEZ LPN - 04/17/2015 14:29 MANAGER HEMATOLOGY Caffeine Use Grid Caffeine Use : Past Type : Coffee, Soft drinks Frequency : Occasionally Amount : 1 cup per week PETRA LOPEZ LPN - 04/17/2015 14:29 MANAGER HEMATOLOGY Recreational Drug Use Grid Drug Use : None PETRA LOPEZ LPN - 04/17/2015 14:29 MANAGER HEMATOLOGY [facility] Document Id: [id number] MANAGER HEMATOLOGY!44 GER HEMATOLOGY documented in this encounter Plan of Treatment Not on filedocumented as of this encounter Visit Diagnoses Not on filedocumented in this encounter Additional Health Concerns Assessment Noted Time PHQ-9 Depression Total Score: 7 06/21/2014 9:20 AM CDT documented as of this encounter
--- OUTSIDE RECORDS SUMMARY | 2021-10-24 10:31 | XMS_ITS | Encounter Summary ---
:1945 Author Organization [facility] Address [address] [place] [address] Care Team Providers Name Role Phone Unavailable Primary Care Provider Unavailable Encounter Details Date Type Department Care Team Description 06/26/2014 Hospital Encounter [facility]X [facility] Nicki Holt, MAL, C.N.P., D.N.P. [address] [place], [place] [phone] (Wo rk) Social History Tobacco Use Types [...] Results Letter 27 Jun 2014 ARCHIE BAZAN [address] [place] [id number] Dear ARCHIE BAZAN, I am pleased to [...] Negative - Sincerely, NICKI HOLT [address] [place] [address] Electronic Signature Electronically Signed By: NICKI HOLT DNP, PRECISION FARMING SPECIALIST On: 27 Jun 2014 This document has images extracted. Source: [employer] Document Id: [id number] Electronically signed by Conversion, [facility] Exhaust Emissions Inspector [id number] at 07/13/2016 7:01 PM CDT Miscellaneous - Conversion, Historical Provider Ser - 06/26/2014 11:59 PM CDT Coding Summary-Paper Based CODING DATE: 07/06/2014 FINAL [facility] STATUS: * Discharged to [...] Revised Date Saved: 07/06/2014 08:07 am Source: [employer] Document Id: [id number] documented in this encounter Plan of Treatment [...] tect upper gastrointestinal bleeding; the HemoQuant test (8232)should be ordered if clinically indicated. Test Performed by: [place] [address] Community Support Worker: Pradeep Parikh II, M.D., Ph.D. Specimen (Source) [...]
--- OUTSIDE RECORDS SUMMARY | 2021-10-24 10:31 | XMS_ITS | Encounter Summary ---
:1945 Author Organization [facility] Address [address] [place] [address] Care Team Providers Name Role Phone Unavailable Primary Care Provider Unavailable Encounter Details Date Type Department Care Team Description 01/24/2015 Hospital Encounter H[facility] Gail Hansen M.D. [id number] [place] [phone] (Wo rk) Social History Tobacco Use [...] 158 cm (5' 2.21) 01/24/2015 12:13 PM LINOTYPE MACHINIST APPRENTICE Body Mass Index - - documented in this encounter Medications at Time of Discharge Medication Sig Dispensed Refills Start Date End Date ASPIRIN ORAL Take 81 mg by mouth daily. Take 0 with food for heart [place]. documented as of this encounter Nursing Notes Andrea Malhotra R.N. - 01/25/2015 3:26 PM CST meds Patient instructed to hold glyizide and metformin before angiogram per Dr. Gabriel. Stated that she understood. Electronically Signed By: ANDREA MALHOTRA RN On: 01/25/2015 03:27 PM Modified by and Electronically Signed by: ANDREA MALHOTRA RN On: 01/25/2015 03:27 PM Source: [employer] Document Id: [id number] TYPE MACHINIST APPRENTICE documented in this encounter Miscellaneous Notes Miscellaneous - Conversion, Historical Provider Ser - 01/24/2015 11:59 PM LINOTYPE MACHINIST APPRENTICE Coding Summary-Paper Based CODING DATE: 02/08/2015 FINAL [place] [facility] STATUS: * Discharged to Home [...] CHAN Date Saved: 02/08/2015 09:20 am Source: [employer] Document Id: [id number] documented in this encounter Plan of Treatment Not on filedocumented as of this encounter Visit Diagnoses Not on filedocumented in this encounter Additional Health Concerns Assessment Noted Time PHQ-9 Depression Total Score: 7 06/21/2014 9:20 AM CDT documented as of this encounter
--- OUTSIDE RECORDS SUMMARY | 2021-10-24 10:31 | XMS_ITS | Encounter Summary ---
:1945 Author Organization [facility] Address [address] [place] [address] Care Team Providers Name Role Phone Unavailable Primary Care Provider Unavailable Encounter Details Date Type Department Care Team Description 02/22/2015 Hospital [facility] [address] [place] [phone] (Wo rk) Social History Tobacco Use [...] Comments Blood Pressure 122/58 02/22/2015 9:24 AM LIBRARY CIRCULATION ASSISTANT Pulse 65 02/22/2015 9:24 AM LIBRARY CIRCULATION ASSISTANT Temperature - - Respiratory Rate 16 02/22/2015 9:24 AM LIBRARY CIRCULATION ASSISTANT Oxygen Saturation - - Inhaled Oxygen Concentration - - Weight 86.4 kg (190 lb 7.6 oz) 02/22/2015 9:24 AM LIBRARY CIRCULATION ASSISTANT Height 158 cm (5' 2.21) 02/22/2015 9:24 AM LIBRARY CIRCULATION ASSISTANT Body Mass Index 34.61 02/22/2015 9:24 AM LIBRARY CIRCULATION ASSISTANT documented in this encounter Medications at Time [...] VILLAR MD on 25 February 2015 13:08:47 LIBRARY CIRCULATION ASSISTANT Patient also reports that her rosacea has been worse recently. Face has increased erythema and somepapules over the medial cheeks and chin. Referral placed for dermatology to further address. Modified by and Electronically Signed by: GAIL VILLAR MD On: 02/25/2015 01:09 PM CHIEF COMPLAINT/REASON FOR VISIT Follow up stent placement. HISTORY OF PRESENT ILLNESS Archie presents today for followup on recent stent placement. She was started on a beta rich by cardiology. She has not had any side effects [...] Anxiety disorder NOS Coronary Artery Disease (CAD) [place]essel Hyperlipidemia/Dyslipidemia Hypothyroidism NOS NIDDM [non-insulin dependent [...] edema. IMPRESSION/REPORT/PLAN 1. Coronary Artery Disease (CAD) [place] Patient seems to be doing better [...] Ordered: OV Est Pt Level 4 - 38428 - 25 min 2. NIDDM [non-insulin dependent diabetes mellitus] Patient reports that her blood sugars have been good. She takes the glipizide in the morning and the metformin in the evening. She was taking the glipizide first but I advised her to take the levothyroxine first followed by the glipizide. A1c is due in May. Ordered: OV Est Pt Level 4 - 88978 - 25 min 28 minutes were spent with the patient today with over half of the time counseling patient and answering her questions. Electronically Signed By: GAIL VILLAR MD On: 02/25/2015 01:08 PM Source: [facility] POWERCHART Document Id: [id number] ARY CIRCULATION ASSISTANT documented in this encounter Miscellaneous Notes Miscellaneous - Gail Cortez M.D. - 02/22/2015 10:16 AM LIBRARY CIRCULATION ASSISTANT Ambulatory Patient Summary [address] [place] [id number] Visit Information Name: ARCHIE BAZAN [facility] Number: [id number] Current Date: 02/22/2015 10:16:38 [...] Stress Test Active Coronary Artery Disease (CAD) [place] Active Your Upcoming Appointments Date Time Location Provider 02/23/2015 11:00 [facility] Re[facility] Cardio/Pulm Therapist 03/02/2015 08:45 [facility] Director Nursing Service Rebecca Gregorio RD Attention: Contact your local [...] Youll be asked for your [facility] number which you can find at the top of this document. Your Goals/Additional instructions: Source: [facility] POWERCHART Document Id: [id number] ARY CIRCULATION ASSISTANT Miscellaneous - Gail Cortez M.D. - 02/22/2015 10:16 AM LIBRARY CIRCULATION ASSISTANT Ambulatory Discharge Medication List [place] [address] [place], [place] [phone] Visit Information Name: ARCHIE BAZAN [facility] Number: [id number] Visit Date: 02/22/2015 10:16:36 [...] MD Signed On:22-FEB-2015 10:16:23 Additional Information: Source: [facility] POWERCHART Document Id: [id number] ARY CIRCULATION ASSISTANT Miscellaneous - Jie Thomason, L.P.N. - 02/22/2015 9:24 AM CST Adult Risk Control Representative Intake/History Adult Risk Control Representative Intake/History Entered On: 02/22/2015 9:26 LIBRARY CIRCULATION ASSISTANT Performed On: 02/22/2015 9:24 LIBRARY CIRCULATION ASSISTANT by JIE THOMASON LPN Intake Chief Complaint [...] kg/m2 JIE THOMASON LPN - 02/22/2015 9:24 LIBRARY CIRCULATION ASSISTANT General Info Information Given By : Patient Preferred Communication Mode : Verbal Languages : Romanian Is Patient Female and 13-50 no hysterectomy : No JIE THOMASON LPN - 02/22/2015 9:24 LIBRARY CIRCULATION ASSISTANT Subjective Pain Symptoms : No JIE THOMASON LPN - 02/22/2015 9:24 LIBRARY CIRCULATION ASSISTANT Dependent Habits Exposure to Tobacco Smoke : Care provider denies smoking in home, Other: never Smoking Status : Never smoker Tobacco 2A : No Tobacco Use/Currently Using : No Tobacco Use/Last 30 Days : No Tobacco Use/Last 12 months : No Alcohol Use : No JIE THOMASON LPN - 02/22/2015 9:24 LIBRARY CIRCULATION ASSISTANT Caffeine Use Grid Caffeine Use : Past Type : Coffee, Soft drinks Frequency : Occasionally Amount : 1 cup per week JIE THOMASON LPN - 02/22/2015 9:24 LIBRARY CIRCULATION ASSISTANT Recreational Drug Use Grid Drug Use : None JIE THOMASON LPN - 02/22/2015 9:24 LIBRARY CIRCULATION ASSISTANT Source: [facility] [employer] Document Id: [id number] LIBRARY CIRCULATION ASSISTANT!43 ARY CIRCULATION ASSISTANT documented in this encounter Plan of Treatment Not on filedocumented as of this encounter Visit Diagnoses Not on filedocumented in this encounter Additional Health Concerns Assessment Noted Time PHQ-9 Depression Total Score: 7 06/21/2014 9:20 AM CDT documented as of this encounter
--- OUTSIDE RECORDS SUMMARY | 2021-10-24 10:31 | XMS_ITS | Encounter Summary ---
:1945 Author Organization [facility] Address [address] [place] [id number] Care Team Providers Name Role Phone Unavailable Primary Care Provider Unavailable Encounter Details Date Type Department Care Team Description 11/29/[address] [facility] Gail Garrison M.D. [address] [place] [phone] (Wo rk) Social History Tobacco Use [...] states that her blood sugars have been highfirst thing in the morning. She checks them three times per day. She takes two metformin at supper and 2.5 mg of glipizide in the morning. She has checked her blood sugars a few times at night and it has been okay. She has not had any lows lately. Patient also notes increased fatigue to the point thatshe can hardly keep her eyes open. She has had brief episodes of lightheadedness that occur when sheis standing. If she holds onto something they pass after a couple seconds. They do make her nervous however. This has happened about three times. She also reports some chest pain when she is putzing around. She has a hard time describing the pain but it will go into her shoulders sometimes when she goes up the steps. She rests and it improves. She also feels tired and weak when the pain is happening but denies any shortness of breath, numbness, or tingling. She did have a funny feeling about 1 monthago in her neck. It felt puffy. She [...] with her vision and she saw an back order clerk this summer. She does not sleep well. She has nothad a lot of problems with anxiety. VITAL [...] it is normal. We will continue her samedose of levothyroxine. 5. Anxiety NOS Patient's Xanax was refilled. She uses it sparingly. Immunization Only Electronically Signed By: GAIL VILLAR MD On: 12/02/2014 12:48 PM Source: [facility] POWERCHART Document Id: [id number] documented in this encounter Miscellaneous Notes Miscellaneous - Gail Cortez M.D. - 11/29/2014 9:09 AM CDT Ambulatory Patient Summary [address] [place], [place] [phone] Visit Information Name: ARCHIE BAZAN [facility] Number: [id number] Current Date: 11/29/2014 09:09:24 Physicians [...] breakfast This is a CHANGE Routed to [facility] [address] [address] levothyroxine (levothyroxine 75 mcg (0.075 mg) oral [...] if you dont have one. Go to [email or web address] and click on Create Your Account. Then, follow the directions to complete the online form. Youll be asked for your [facility] number which you can find at the top of this document. Your Goals/Additional instructions: Source: [facility] POWERCHART Document Id: [id number] Miscellaneous - Gail Cortez M.D. - 11/29/2014 9:09 AM CDT Ambulatory Discharge Medication List [address] [phone] Visit Information Name: ARCHIE BAZAN [facility] Number: [id number] Visit Date: 11/29/2014 09:09:22 Attending Provider: GAIL VILLAR MD Primary Care Provider: GIAL VILLAR MD ARCHIE BAZAN has been given [...] breakfast This is a CHANGE [facility]ed to [facility] [address] levothyroxine (levothyroxine 75 mcg (0.075 mg) oral [...] MD Signed On:29-NOV-2014 09:09:10 Additional Information: Source: [facility] POWERCHART Document Id: [id number] Miscellaneous - Vitaliy Darnell, L.P.N. - 11/29/2014 8:18 AM CDT Adult Frame Stylist Intake/History Adult Frame Stylist Intake/History Entered On: 11/29/2014 8:24 CDT Performed On: 11/29/2014 8:18 CDT by VITALIY DARNELL LPN Intake Chief Complaint : diabetic visit Onset of Symptoms : has episodes where blood sugars go high/blood pressure goes high and gets very tired Temperature Core : 36.5 DegC(Converted to: 97.7 [...] Mass Index : 34.49 kg/m2 VITALIY DARNELL [employer] OFFICER - 11/29/2014 8:18 CDT General Info Information Given By : Patient Preferred Communication Mode : Verbal Languages : Marshallese Is Patient Female and 13-50 no hysterectomy [...] Grid Drug Use : None VITALIY DARNELL [facility] - 11/29/2014 8:18 CDT Source: [facility] POWERCHART Document Id: [id number] CDT!44 Miscellaneous - Reanna Amanda RSusan - 11/22/2014 3:24 PM CDT alprazolam Document Contains Addenda Addendum by REANNA AMANDA RN on 23 November 2014 10:21:21 CDT Called to [facility] Addendum by GAIL VILLAR MD on 23 [...] - called to pharmacy (Rx) [facility] 07/24/14 10/11/13 [facility] [facility] Document Id: [id number] documented in this encounter Plan of Treatment Not on filedocumented as of this encounter Visit Diagnoses Not on filedocumented in this encounter Additional Health Concerns Assessment Noted Time PHQ-9 Depression Total Score: 7 06/21/2014 9:20 AM CDT documented as of this encounter
--- OUTSIDE RECORDS SUMMARY | 2021-10-24 10:31 | XMS_ITS | Encounter Summary ---
:1945 Author Organization [facility] Address [address] [place] [address] Care Team Providers Name Role Phone Unavailable Primary Care Provider Unavailable Encounter Details Date Type Department Care Team Description 12/14/2013 Hospital Encounter [facility] Nicki Holt, MAL, C.N.P., D.N.P. [address] [place], [place] [phone] (Wo rk) Social History [...] Results Letter 16 December 2013 ARCHIE BAZAN [address] [place] [id number] Dear ARCHIE BAZAN, Your kidney function, electrolytes [...] 7.49 05/26/2013 - <=5.6 Sincerely, NICKI HOLT [id number] [phone] Electronic Signature Electronically Signed By: NICKI HOLT DNP, FNP On: 16 December 2013 This document has images extracted. Source: [facility] POWERCHART Document Id: [id number] documented in this encounter Plan of Treatment Not on filedocumented as of this encounter Procedures Procedure Name Priority Date/Time Associated Diagnosis Comme nts HEMOGLOBIN A1C, B Routine 12/12/2013 9:10 AM Resu lts for this CDT procedure are i n the results section. documented in this encounter Results (ABNORMAL) Hemoglobin A1c (12/12/2013 9:10 AM CDT) P athologist Signature Hemoglobin A1c, 8.3 (H) <=5.6 A1C POWERCHART B Specimen (Source) Anatomical Collection Method Collection Time Re ceived Time Location / / Volume Laterality Blood 12/12/2013 9:10 AM CDT Nicki Holt [employer], C.N.P., D.N.P. LAB BLOOD ADD- ON Performing Organization Address City/State/ZIP Code Phon e Number POWERCHART documented in this encounter Visit Diagnoses Not on filedocumented in this encounter Additional Health Concerns Assessment Noted Time PHQ-9 Depression Total Score: 1 06/01/2013 1:42 PM CDT documented as of this encounter
--- OUTSIDE RECORDS SUMMARY | 2021-10-24 10:31 | XMS_ITS | Encounter Summary ---
:1945 Author Organization [facility] Address [address] [place] [address] Care Team Providers Name Role Phone Unavailable Primary Care Provider Unavailable Encounter Details Date Type Department Care Team Description 07/24/2014 Hospital Encounter [facility] [address] [place] [phone] (Wo rk) Social History Tobacco Use [...] CODING DATE: 08/07/2014 FINAL [facility] STATUS: * Discharged to Home [...] in slightly different terminology. Coded By: GUERITA CHNA Date Saved: 08/07/2014 04:04 pm Source: [facility] Document Id: [id number] Miscellaneous - Gail Cortez M.D. - 07/07/2014 [...] again today. From: GAIL VILLAR MD To: [place] [facility] Nurse Scotty; Sent: 07/07/2014 13:59:58 [...] she wants to reschedule. Gail Cm Source: [facility] Document Id: [id number] Electronically signed by Conversion, [facility] Plant General Manager [id number] at 07/14/2016 2:50 PM CDT documented in this encounter Plan of Treatment Not on filedocumented as of this encounter Visit Diagnoses Not on filedocumented in this encounter Additional Health Concerns Assessment Noted Time PHQ-9 Depression Total Score: 7 06/21/2014 9:20 AM CDT documented as of this encounter
--- OUTSIDE RECORDS SUMMARY | 2021-10-24 10:31 | XMS_ITS | Encounter Summary ---
:1945 Author Organization [facility] Address [address] [place] [address] Care Team Providers Name Role Phone Unavailable Primary Care Provider Unavailable Encounter Details Date Type Department Care Team Description 07/25/2014 Hospital Encounter [facility] Asha Ramon, MAL, C.N.P., D. N.P. [address] [place], [place] [phone] (Wo rk) Social History [...] Coding Summary-Paper Based CODING DATE: 08/11/2014 FINAL [facility] STATUS: * Discharged to Home or [...] CHAN Date Saved: 08/11/2014 10:06 am Source: [employer] Document Id: [id number] Miscellaneous - Nicki Holt D.N.P., C.N.P. - 07/25/2014 11:21 AM CDT Normal Results Letter 25 July 2014 ARCHIE BAZAN [address] [place] [id number] Dear ARCHIE BAZAN, Your bone density scan [...] MD. [phone] 24-Jul-2014 11:57 Sincerely, NICKI HOLT [address] [place], [place] [phone] Electronic Signature Electronically Signed By: NICKI HOLT DNP, FNP On: 25 July 2014 This document has images extracted. Source: [facility] POWERCHART Document Id: [id number] documented in this encounter Plan of Treatment Not on filedocumented as of this encounter Visit Diagnoses Not on filedocumented in this encounter Additional Health Concerns Assessment Noted Time PHQ-9 Depression Total Score: 7 06/21/2014 9:20 AM CDT documented as of this encounter
--- OUTSIDE RECORDS SUMMARY | 2021-10-24 10:31 | XMS_ITS | Encounter Summary ---
:1945 Author Organization [facility] Address [address] [place] [address] Care Team Providers Name Role Phone Unavailable [...] - Oxygen Saturation - - Inhaled Oxygen - - Concentration Weight - - Height 158 cm (5' 2.21) 01/26/2015 7:48 AM Aljeandro [employer] PRO[employer] MERCHANDISER RN Body Mass Index - - documented in [...]
--- OUTSIDE RECORDS SUMMARY | 2021-10-24 10:31 | XMS_ITS | Encounter Summary ---
:1945 Author Organization [facility] Address [address] [place] [address] Care Team Providers Name Role Phone Unavailable Primary Care Provider Unavailable Encounter Details Date Type Department Care Team Description 03/13/2014 Hospital Encounter HX [facility] Nicki Holt, MAL, C.N.P., D.N.P. [address] [place], [place] [phone] (Wo rk) Social History [...] 158 cm (5' 2.21) 03/13/2014 8:22 AM JEWELRY SALES Body Mass Index - - documented in this encounter Medications at Time of Discharge Medication Sig Dispensed Refills Start Date End Date ASPIRIN ORAL Take 81 mg by mouth daily. Take 0 with food for heart health. documented as of this encounter Miscellaneous Notes Miscellaneous - Conversion, Historical Provider Ser - 03/13/2014 11:59 PM [employer] Coding Summary-Paper Based CODING DATE: 03/16/2014 FINAL [facility] STATUS: * Discharged to Home [...] SIMON Date Saved: 03/16/2014 02:39 pm [facility] Document Id: [id number] Miscellaneous - Nicki Holt, Maritza.N.P., C.N.P. - 03/13/2014 10:31 AM [employer] Normal Results Letter 13 March 2014 ARCHIE BAZAN [address] [place] [id number] Dear ARCHIE BAZAN, Better, but we can [...] 8.3 12/12/2013 - <=5.6 Sincerely, NICKI HOLT [address] [address] Electronic Signature Electronically Signed By: NICKI HOLT DNP, RN HOME CARE On: 13 March 2014 This document has images extracted. Source: [facility] Document Id: [id number] documented in this encounter Plan of Treatment Not on filedocumented as of this encounter Procedures Procedure Name Priority Date/Time Associated Diagnosis Comme nts HEMOGLOBIN A1C, B Routine 03/13/2014 9:03 AM Resu lts for this [employer] procedure are i n the results section. documented in this encounter Results (ABNORMAL) Hemoglobin A1c (03/13/2014 9:03 AM [employer]) P athologist Signature Hemoglobin A1c, 7.6 (H) <=5.6 A1C POWERCHART B Specimen (Source) Anatomical Collection Method Collection Time Re ceived Time Location / / Volume Laterality Blood 03/13/2014 9:03 AM [employer] Nicki Holt APRN, C.N.P., D.N.P. LAB BLOOD ADD- ON Performing Organization Address City/State/ZIP Code Phon e Number POWERCHART documented in this encounter Visit Diagnoses Not on filedocumented in this encounter Additional Health Concerns Assessment Noted Time PHQ-9 Depression Total Score: 1 06/01/2013 1:42 PM CDT documented as of this encounter
--- OUTSIDE RECORDS SUMMARY | 2021-10-24 10:31 | XMS_ITS | Encounter Summary ---
:1945 Author Organization [facility] Address [address] [place] [address] Care Team Providers Name Role Phone Unavailable Primary Care Provider Unavailable Encounter Details Date Type Department Care Team Description 03/27/2014 Hospital Encounter [facility] Nicki Holt, MAL, C.N.P., D. N.P. [address] [place] [phone] (Wo rk) Social History Tobacco [...] Reading Time Taken Comments Blood Pressure 130/60 03/27/2014 1:36 PM SEAMSTRESS FITTER Pulse 65 03/27/2014 1:36 PM SEAMSTRESS FITTER Temperature - - Respiratory Rate 18 03/27/2014 1:36 PM SEAMSTRESS FITTER Oxygen Saturation - - Inhaled Oxygen Concentration - - Weight 88.2 kg (194 lb 7.1 oz) 03/27/2014 1:36 PM SEAMSTRESS FITTER Height 158 cm (5' 2.21) 03/27/2014 1:36 PM SEAMSTRESS FITTER Body Mass Index 35.33 03/27/2014 1:36 PM SEAMSTRESS FITTER documented in this encounter Medications at Time of Discharge Medication Sig Dispensed Refills Start Date End Date ASPIRIN ORAL Take 81 mg by mouth daily. Take 0 with food for heart health. documented as of this encounter Progress Notes Nicki Holt D.N.P., C.N.P. - 03/27/2014 1:14 PM CST [id number] CHIEF COMPLAINT/REASON FOR VISIT Follow up type 2 diabetes mellitus. HISTORY OF PRESENT ILLNESS Patient is a 68-year-old female that presents to the clinic today for ongoing evaluation and management of her type 2 diabetes mellitus. I will note her last hemoglobin A1c was noted to be 7.6% on March 13, 2014. Prior to was noted to be 8.3%, December 12, 2013. She is currently taking metformin 500 mg by mouth extended release 2 times a day as she has GI side effects with higher dosing. We have recently initiated her back on glipizide 2.5 mg extended release by mouth daily which she seems to be tolerating well which she reports that her blood sugars are on average about 120 fasting up to 160. Shefeels that this has been a good transition for her. She indicates that she is aware she does need to incorporate more activity back into her routine. She otherwise indicates that she is not having any further concerns or issues. PAST MEDICAL/SURGICAL HISTORY Reviewed. Please see chart. FAMILY HISTORY Reviewed. Please see chart. MEDICATIONS Reviewed. Please see chart. ALLERGIES Reviewed. Please see chart. PHYSICAL EXAMINATION GENERAL: Patient is an alert, obese, 68-year-old female that otherwise appears to be in no acute distress. HEAD: Normocephalic, atraumatic. Remainder of further examination deferred at this time. IMPRESSION/REPORT/PLAN Type 2 diabetes mellitus. PLAN: Discussed the overall findings at length with the patient. Presently, at this time, I did encourage the patient to continue with ongoing close management of her blood sugars. If, in fact, blood sugars worsen, followup would then be warranted. We will plan on a recheck of her 3 month blood sugar average in the next 2 months' duration. Continue to encourage lifestyle modifications to overall helpwith her symptoms. Patient felt very comfortable with this treatment plan. She otherwise denied having any further questions or concerns. The patient ambulated out of the clinic in no acute distress. Ready to learn. No apparent learning barriers were identified. Learning preferences include listening. Explained diagnosis and treatment plan. Patient/Child/Caregiver expressed understanding of the content. Nicki Holt D.N.P./F.N.P/gene Electronically Signed By: NICKI HOLT DNP, FNP On: 03/28/2014 02:41 PM Source: [facility] MHSDOLBEYNONRADSYS Document Id: [id number] STRESS FITTER documented in this encounter Miscellaneous Notes Miscellaneous - Nicki Holt D.N.Kvng, C.N.P. - 03/27/2014 3:37 PM SEAMSTRESS FITTER Ambulatory Patient Summary [address] [phone] Visit Information Name: ELIDASTEVEN ARCHIE MAI [facility] Number: [id number] Current Date: 03/27/2014 15:37:18 Physicians Attending Provider: NICKI HOLT DNP, FNP [...] the Following Medications: Medication list as of 03-27-14 15:37 Attention: If you have any medications at [...] Signed By: NICKI HOLT DNP, FNP Signed On:27-MAR-2014 14:11:05 Your Allergies & Intolerances Substance Reaction Symptoms [...] Your Upcoming Appointments Date Time Location Provider 04/24/2014 13:00 [facility] Raj BRENNAN, Nicki Anderson Attention: Contact your local Clinic if further appointment detail needed. Your Goals/Additional instructions: follow up in 1 month for a weight check. Source: [facility] POWERCHART Document Id: [id number] STRESS FITTER Miscellaneous - Nicki Holt D.N.P., C.N.P. - 03/27/2014 3:37 PM SEAMSTRESS FITTER Ambulatory Discharge Medication List [address] [place], [place] [phone] Visit Information Name: ARCHIE BAZAN [facility] Number: [id number] Visit Date: 03/27/2014 15:37:16 Attending Provider: NICKI HOLT DNP, FNP Primary [...] the Following Medications: Medication list as of 03-27-14 15:37 Attention: If you have any medications at [...] emergency. Electronically Signed By: NICKI HOLT DNP, OVERWEAVER Signed On:27-MAR-2014 14:11:05 Additional Information: Source: [facility] POWERCHART Document Id: [id number] STRESS FITTER Miscellaneous - Mel Batista L.P.N. - 03/27/2014 1:36 PM CST Adult Roof Technician Intake/History Adult Roof Technician Intake/History Entered On: 03/27/2014 13:41 SEAMSTRESS FITTER Performed On: 03/27/2014 13:36 SEAMSTRESS FITTER by MEL BATISTA LPN Intake Chief Complaint : med. change f/u Temperature Core : 35.8 DegC(Converted to: 96.4 DegF) (LOW) Peripheral Pulse Rate : 65 /min Respiratory Rate : 18 /min Heart Rhythm : Irregular Systolic Blood Pressure : 130 mmHg Diastolic Blood Pressure : 60 mmHg NIBP Mean : 83 mmHg BP [...] 1.97 Body Mass Index : 35.33 kg/m2 MEL BATISTA LPN - 03/27/2014 13:36 SEAMSTRESS FITTER General Info Information Given By : Patient Languages : Italian Is Patient Female and 13-50 no hysterectomy : No MEL BATISTA LPN - 03/27/2014 13:36 SEAMSTRESS FITTER Subjective Pain Symptoms : Yes MEL BATISTA LPN 03/27/2014 13:36 SEAMSTRESS FITTER Pain Scale Pain Scale Verbal 0-10 : Open MEL BATISTA Ronak [facility] 03/27/2014 13:36 SEAMSTRESS FITTER Pain Pain Assessment Grid Pain 1 Location : Abdomen Laterality : Right (Comment: occ [MEL BATISTA Ronak [facility] 03/27/2014 13:36 SEAMSTRESS FITTER] ) Intensity : 1 VALERIE BATISTACYNTHIA Simons [facility] 03/27/2014 13:36 SEAMSTRESS FITTER Dependent Habits Tobacco Use/Currently Using : No Exposure to Tobacco Smoke : Care provider denies smoking in home Smoking Status : Never smoker MEL BATISTA [facility] 03/27/2014 13:36 SEAMSTRESS FITTER Tobacco Use Grid Last Use : Never BATISTAMEL OSCAR [facility] 03/27/2014 13:36 SEAMSTRESS FITTER Caffeine Use Grid Caffeine Use : None Frequency : Occasionally Amount : 1 cup per week BATISTA MEL Simons [facility] 03/27/2014 13:36 SEAMSTRESS FITTER Recreational Drug Use Grid Drug Use : None MEL BATISTA [facility] 03/27/2014 13:36 SEAMSTRESS FITTER ID Screen Drug Resistant Organism : No Travel Within Last 21 Days : No MEL BATISTA [facility] 03/27/2014 13:36 SEAMSTRESS FITTER Source: [employer] Document Id: [id number] SEAMSTRESS FITTER!52 STRESS FITTER documented in this encounter Plan of Treatment Not on filedocumented as of this encounter Visit Diagnoses Not on filedocumented in this encounter Additional Health Concerns Assessment Noted Time PHQ-9 Depression Total Score: 1 06/01/2013 1:42 PM CDT documented as of this encounter
--- OUTSIDE RECORDS SUMMARY | 2021-10-24 10:31 | XMS_ITS | Encounter Summary ---
:1945 Author Organization [facility] Address [address] [place] [address] Care Team Providers Name Role Phone Unavailable Primary Care Provider Unavailable Encounter Details Date Type Department Care Team Description 01/04/2015 Hospital Encounter HX [facility] Gail Zheng M.D. [id number] [phone] (Wo rk) Social History Tobacco [...] 158 cm (5' 2.21) 01/04/2015 11:13 AM DIRECTOR OF CONVENTION SERVICES Body Mass Index - - documented in this encounter Medications at Time of Discharge Medication Sig Dispensed Refills Start Date End Date ASPIRIN ORAL Take 81 mg by mouth daily. Take 0 with food for weeSPIN. documented as of this encounter Procedure Notes Andrea Malhotra RJairoN. - 01/04/2015 1:32 PM CST Capillary Blood Glucose Point of Care Capillary Blood Glucose Point of Care Entered On: 01/04/2015 13:33 [employer] OF CONVENTION SERVICES Performed On: 01/04/2015 13:32 [employer] OF CONVENTION SERVICES by ANDREA MALHOTRA RN Blood Glucose Blood Glucose Testing Reason : Other: post- stress test - patient took own blood sugar after eating snack of juice and sandwich. Stated that she felt fine. Glucose Point Of Care : 99 mg/dL ANDREA MALHOTRA RN - 01/04/2015 13:32 DIRECTOR OF CONVENTION SERVICES Source: [employer] Document Id: [id number] DIRECTOR OF CONVENTION SERVICES!4 [employer]OR OF CONVENTION SERVICES Andrea Malhotra R.N. - 01/04/2015 1:10 PM CST Peripheral IV Peripheral IV Entered On: 01/04/2015 13:32 DIRECT[employer] OF CONVENTION SERVICES Performed On: 01/04/2015 13:10 DIRECTOR OF CONVENTION SERVICES by ANDREA MALHOTRA RN Peripheral IV Peripheral IV Assess/Intervention Grid Peripheral IV #1 Peripheral IV #2 IV Activity : Start Discontinue Removal : Catheter intact Number of Attempts : 1 Date of Insertion : 01/04/2015 DIRECTOR OF CONVENTION SERVICES IV Site : Hand Laterality : Left Catheter Size : 22 Catheter Type : Protective Site Condition : No complications Drainage Description : Bloody Infiltration Score : 0 Phlebitis Score : 0 ANDREA MALHOTRA RN - 01/04/2015 13:31 DIRECTOR OF CONVENTION SERVICES ANDREA MALHOTRA RN - 01/04/2015 13:31 DIRECT[employer] OF CONVENTION SERVICES Source: [employer] Document Id: [id number] DIRECTOR OF CONVENTION SERVICES!18 CTOR OF CON[employer]ION SERVICES Andrea Malhotra R.N. - 01/04/2015 1:00 PM CST Capillary Blood Glucose Point of Care Capillary Blood Glucose Point of Care Entered On: 01/04/2015 13:10 DIRECT[employer] OF CONVENTION SERVICES Performed On: 01/04/2015 13:00 DIRECTOR OF CONVENTION SERVICES by ANDREA MALHOTRA RN Blood Glucose Blood Glucose Testing Reason : Other: after stress echo Glucose Point Of Care : 94 mg/dL Blood Glucose Stick Site : Finger Blood Glucose Interventions : Administered food/juice ANDREA MALHOTRA RN - 01/04/2015 13:10 DIRECT[employer] OF CONVENTION SERVICES Source: [employer] Document Id: [id number] DIRECTOR OF CONVENTION SERVICES!6 CTOR OF CONVENTION SERVICES Andrea Malhotra R.N. - 01/04/2015 12:20 PM CST Peripheral IV Peripheral IV Entered On: 01/04/2015 13:31 DIRECT[employer] OF CONVENTION SERVICES Performed On: 01/04/2015 12:20 DIRECTOR OF CONVENTION SERVICES by ANDREA MALHOTRA RN Peripheral IV Peripheral IV Assess/Intervention Grid Peripheral IV #1 IV Activity : Start Number of Attempts : 1 Date of Insertion : 01/04/2015 DIRECTOR OF CONVENTION SERVICES IV Site : Hand Laterality : Left Catheter Size : 22 Catheter Type : Protective Site Condition : No complications ANDREA MALHOTRA RN - 01/04/2015 13:30 DIRECTOR OF CONVENTION SERVICES Source: [employer] Document Id: [id number] DIRECTOR OF CONVENTION SERVICES!12 CTOR OF CONVENTION SERVICES Annie Jones R.N. - 01/04/2015 11:45 AM CST Capillary Blood Glucose Point of Care Capillary Blood Glucose Point of Care Entered On: 01/04/2015 11:47 DIRECTOR OF CONVENTION SERVICES Performed On: 01/04/2015 11:45 DIRECTOR OF CONVENTION SERVICES by ANNIE JONES RN Blood Glucose Blood Glucose Testing Reason : Routine Glucose Point Of Care : 112 mg/dL (Comment: Done prior to stress echo per protocol. Pt had light breakfast, denies sx will recheck after echo [ANNIE JONES RN - 01/04/2015 11:45 DIRECTOR OF CONVENTION SERVICES] ) Blood Glucose Stick Site : Finger ANNIE JONSE RN - 01/04/2015 11:45 DIRECTOR OF CONVENTION SERVICES Source: [employer] Document Id: [id number] DIRECTOR OF CONVENTION SERVICES!5 CTOR OF CONVENTION SERVICES Simona Yan M.D. - 01/04/2015 12:00 AM [...] YAN MD On: 01/04/2015 03:16 PM Source: [facility] [email or web address] Document Id: [id number] CTOR OF CONVENTION SERVICES documented in this encounter Miscellaneous Notes Miscellaneous - Andrea Malhotra R.N. - 01/05/2015 9:57 AM CST *General Message Document Contains Addenda Addendum by GAIL VILLAR MD on 05 January 2015 14:18:23 DIRECTOR OF CONVENTION SERVICES From: GAIL VILLAR MD To: [facility] Nurse; Sent: 01/05/2015 14:18:23 DIRECTOR OF CONVENTION SERVICES Subject: RE: *General Message I reviewed the results. Could we please get patient scheduled with cardiology? I will put in the referral. Gail Tom From: ANDREA MALHOTRA RN ([facility] Nurse) To: GAIL VILLAR MD; Sent: 01/05/2015 09:57:02 DIRECT[employer] OF CONVENTION SERVICES Subject: *General Message Hi Marcial Strange had her stress echocardiogram done yesterday. The results are available foryou to review. She does not have a follow-up appt. scheduled with you. Thanks- Angie Source: [facility] POWERCHART Document Id: [id number] Electronically signed by Sae [facility] Patternmaker Hand [id number] at 07/14/2016 6:16 AM CDT Miscellaneous - Conversion, Historical Provider Ser - 01/04/2015 11:59 PM DIRECTOR OF CONVENTION SERVICES Coding Summary-Paper Based CODING DATE: 01/25/2015 FINAL [place] [facility] STATUS: * Discharged to [...] CHAN Date Saved: 01/25/2015 07:10 am Source: [facility] [email or web address] Document Id: [id number] documented in this encounter Plan of Treatment Not on filedocumented as of this encounter Procedures Procedure Name Priority Date/Time Associated Diagnosis Comme nts GLUCOSE POCT, B Routine 01/04/2015 1:33 PM Result s for this [employer] SERVICES procedure are i n the results section. GLUCOSE POCT, B Routine 01/04/2015 1:10 PM Result s for this [employer] CONVENTION SERVICES procedure are i n the results section. GLUCOSE POCT, B Routine 01/04/2015 12:56 PM Resul ts for this [employer] CONVENTION SERVICES procedure are i n the results section. GLUCOSE POCT, B Routine 01/04/2015 11:47 AM Resul ts for this [employer] CONVENTION SERVICES procedure are i n the results section. GLUCOSE POCT, B Routine 01/04/2015 11:41 AM Resul ts for this [employer] CONVENTION SERVICES procedure are i n the results section. documented in this encounter Results Glucose, POCT (01/04/2015 1:33 PM DIRECTOR OF CONVENTION SERVICES) P athologist Signature Glucose, POCT, 99 MGDL POWERCHART B Specimen (Source) Anatomical Collection Method Collection Time Re ceived Time Location / / Volume Laterality 01/04/2015 1:33 PM DIRECTOR OF CONVENTION SERVICES Historical Provider LAB POCT ORDERABLES-MANUAL Performing Organization Address City/State/ZIP Code Phon e Number POWERCHART Glucose, POCT (01/04/2015 1:10 PM DIRECTOR OF CONVENTION SERVICES) P athologist Signature Glucose, POCT, 94 MGDL POWERCHART B Specimen (Source) Anatomical Collection Method Collection Time Re ceived Time Location / / Volume Laterality 01/04/2015 1:10 PM DIRECTOR OF CONVENTION SERVICES Historical Provider LAB POCT ORDERABLES-MANUAL Performing Organization Address City/[facility] Code Phon e Number POWERCHART Glucose, POCT (01/04/2015 12:56 PM DIRECTOR OF CONVENTION SERVICES) P athologist Signature Glucose, POCT, 94 70 - 139 POWERCHART B MGDL Comment: Manual Result Entry required as Clinic Meter used in Hospital setting so results will no cross interface through RALS. Performing Location: [facility] [address] [place] [address] Specimen Anatomical Collection Method Collection Time Receive d Time (Source) Location / / Volume Laterality Blood 01/04/2015 12:56 01/04/2015 3:45 PM DIRECTOR OF CONVENTION SERVICES PM DIRECTOR OF CONVENTION SERVICES Gail Haas M.D. LAB POCT ORDERABLES-MAN UAL Performing Organization Address City/[facility]/ZIP Code Phon e Number POWERCHART Glucose, POCT (01/04/2015 11:47 AM DIRECTOR OF CONVENTION SERVICES) P athologist Signature Glucose, POCT, 112 MGDL POWERCHART B Specimen (Source) Anatomical Collection Method Collection Time Re ceived Time Location / / Volume Laterality 01/04/2015 11:47 AM DIRECTOR OF CONVENTION SERVICES Narrative POWERCHART - 01/04/2015 11:47 AM DIRECTOR OF CONVENTION SERVICES {\rtf1\ansi\[id number]\deff0\[id number]{\fonttbl{\f0\fnil\fcharset0 Segoe UI;}} \viewkind4\uc1\pard\f0\fs20 ??Done prior to stress echo per protocol. Pt had light breakfast, denies sx ??will recheck after echo\par } Historical Provider LAB POCT ORDERABLES-MANUAL Performing Organization Address City/[facility]/ZIP Code Phon e Number POWERCHART Glucose, POCT (01/04/2015 11:41 AM DIRECTOR OF CONVENTION SERVICES) P athologist Signature Glucose, POCT, 112 70 - 139 POWERCHART B MGDL Comment: Manual Result Entry Required as Clinic Meter used in Hospital Setting so results will not cross interface through RALS. Performing Location: [facility] [place] [address] [place] [address] Specimen Anatomical Collection Method Collection Time Receive d Time (Source) Location / / Volume Laterality Blood 01/04/2015 11:41 01/04/2015 3:41 AM DIRECTOR OF CONVENTION SERVICES PM DIRECT[employer] OF CONVENTION SERVICES Gail Haas M.D. LAB POCT ORDERABLES-MAN UAL Performing Organization Address City/State/ZIP Code Phon e Number POWERCHART documented in this encounter Visit Diagnoses Not on filedocumented in this encounter Additional Health Concerns Assessment Noted Time PHQ-9 Depression Total Score: 7 06/21/2014 9:20 AM CDT documented as of this encounter
--- OUTSIDE RECORDS SUMMARY | 2021-10-24 10:31 | XMS_ITS | Encounter Summary ---
:1945 Author Organization [facility] Address [address] [place] [address] Care Team Providers Name Role Phone Unavailable Primary Care Provider Unavailable Encounter Details Date Type Department Care Team Description 01/24/2015 Hospital Encounter HX [facility] [place] Gail Garrison M.D. [address] [place] [phone] (Wo rk) Social History Tobacco Use [...] Comments Blood Pressure 122/70 01/24/2015 11:33 AM PORCELAIN ENAMELER Pulse 70 01/24/2015 11:33 AM PORCELAIN ENAMELER Temperature - - Respiratory Rate 16 01/24/2015 11:33 AM PORCELAIN ENAMELER Oxygen Saturation - - Inhaled Oxygen Concentration - - Weight 86 kg (189 lb 9.5 oz) 01/24/2015 11:33 AM PORCELAIN ENAMELER Height 158 cm (5' 2.21) 01/24/2015 11:33 AM PORCELAIN ENAMELER Body Mass Index 34.45 01/24/2015 11:33 AM PORCELAIN ENAMELER documented in this encounter Medications at Time [...] her recent cardiology appointment. Unfortunately there is nota note in the chart to review at [...] sometimes last all day. Yesterday she felt fine but today she just does not feel right. She also reports anxiety at times. It is not as intense as past panic attacks. She sometimes takes Xanax and [...] Ordered: OV Est Pt Level 4 - 11345 - 25 min 2. Palpitations Patient reports symptoms of palpitations and not feeling well. We placed a Holter monitor today to help determine if patient is having any arrhythmias that are contributing. Ordered: OV Est Pt Level 4 - 47549 - 25 min 3. Anxiety NOS At this point, will not make any changes to patient's Xanax. Once we know more about her cardiac status, we may make changes if her anxiety continues to be an issue. Ordered: OV Est Pt Level 4 - 53503 - 25 min Orders: Holter Monitor 48Hr Electronically Signed By: GAIL VILLAR MD On: 01/24/2015 09:31 PM [facility] [employer] Document Id: [id number] ELAIN ENAMELER documented in this encounter Miscellaneous Notes Miscellaneous - Gail Cortez M.D. - 01/24/2015 12:07 PM PORCELAIN ENAMELER Ambulatory Patient Summary [address] [id number] Visit Information Name: ARCHIE BAZAN [facility] Number: [id number] Current Date: 01/24/2015 12:07:07 Physicians [...] if you dont have one. Go to [email or web address] and click on Create Your Account. Then, follow the directions to complete the online form. Youll be asked for your [facility] number which you can find at the top of this document. Your Goals/Additional instructions: Source: [facility] POWERCHART Document Id: [id number] ELAIN ENAMELER Miscellaneous - Gail Cortez M.D. - 01/24/2015 12:07 PM PORCELAIN ENAMELER Ambulatory Discharge Medication List [address] [id number] Visit Information Name: ARCHIE BAZAN [facility] Number: [id number] Visit Date: 01/24/2015 12:07:05 Attending [...] MD Signed On:24-JAN-2015 12:06:47 Additional Information: Source: [facility] POWERCHART Document Id: [id number] ELAIN ENAMELER Miscellaneous - Yadira Lomeli, L.P.N. - 01/24/2015 11:33 AM CST Adult Assembler [employer] Intake/History Adult Assembler [employer] Intake/History Entered On: 01/24/2015 11:36 PORCELAIN ENAMELER Performed On: 01/24/2015 11:33 PORCELAIN ENAMELER by YADIRA LOMELI Intake Chief Complaint : [...] 34.45 kg/m2 YADIRA LOMELI - 01/24/2015 11:33 PORCELAIN ENAMELER General Info Information Given By : Patient Languages : [place]rugu[place] Is Patient Female and 13-50 no hysterectomy : YADIRA Covarrubias - 01/24/2015 11:33 PORCELAIN ENAMELER Subjective Pain Symptoms : YADIRA Covarrubias 01/24/2015 11:33 PORCELAIN ENAMELER Dependent Habits Exposure to Tobacco Smoke : Care provider denies smoking in home, Other: never Smoking Status : Never smoker Tobacco 2A : YADIRA Covarrubias - 01/24/2015 11:33 PORCELAIN ENAMELER Caffeine Use Grid Caffeine Use : Past Type : Coffee, Soft drinks Frequency : Occasionally Amount : 1 cup per week YADIRA LOMELI - 01/24/2015 11:33 PORCELAIN ENAMELER Recreational Drug Use Grid Drug Use : None YADIRA LOMELI 01/24/2015 11:33 PORCELAIN ENAMELER Source: [facility] [employer] Document Id: [id number] PORCELAIN ENAMELER!37 ELAIN ENAMELER documented in this encounter Plan of Treatment Not on filedocumented as of this encounter Visit Diagnoses Not on filedocumented in this encounter Additional Health Concerns Assessment Noted Time PHQ-9 Depression Total Score: 7 06/21/2014 9:20 AM CDT documented as of this encounter
--- OUTSIDE RECORDS SUMMARY | 2021-10-24 10:31 | XMS_ITS | Encounter Summary ---
:1945 Author Organization [facility] Address [address] [place] [address] Care Team Providers Name Role Phone Unavailable Primary Care Provider Unavailable Encounter Details Date Type Department Care Team Description 03/13/2014 Hospital Encounter HX [facility] Nicki Holt, MAL, C.N.P., D. N.P. [address] [place] [address] (Wo rk) Social History Tobacco [...] Comments Blood Pressure 120/76 03/13/2014 8:32 AM SOLDERER ASSEMBLER Pulse 68 03/13/2014 8:32 AM SOLDERER ASSEMBLER Temperature - - Respiratory Rate 16 03/13/2014 8:32 AM SOLDERER ASSEMBLER Oxygen Saturation - - Inhaled Oxygen Concentration - - Weight 87.3 kg (192 lb 7.4 oz) 03/13/2014 8:32 AM SOLDERER ASSEMBLER Height 158 cm (5' 2.21) 03/13/2014 8:32 AM SOLDERER ASSEMBLER Body Mass Index 34.97 03/13/2014 8:32 AM SOLDERER ASSEMBLER documented in this encounter Medications at Time of Discharge Medication Sig Dispensed Refills Start Date End Date ASPIRIN ORAL Take 81 mg by mouth daily. Take 0 with food for heart health. documented as of this encounter Progress Notes Nicki Holt D.N.P., C.N.P. - 03/13/2014 8:29 AM CST [id number] CHIEF COMPLAINT/REASON FOR VISIT Follow up type 2 diabetes mellitus. HISTORY OF PRESENT ILLNESS Patient is a 68-year-old female who presents to clinic today with a history of type 2 diabetes mellitus diagnosed since 2007. She has utilized metformin extended release, taking 500 mg by mouth 2 timesa day which she has well tolerated, however, any increase in dosing she has GI upset. She has been on glipizide in the past. However, in the past she has also utilized a Health Check Inspector here at the [facility] in [place] (whose services are no longer available) in which she had significant reduction in weight and overall improvement of her hemoglobin A1c. After the Health Check Inspector services were no longer available the patient indicates that she has regressed and actually has gained allthe weight back. She indicates that she is aware her blood sugars continue being elevated. Her lasthemoglobin A1c was noted to be 8.3% on December 12, 2013. She does indicate that she has tried to make a little bit of some improvements but could be doing a little better overall. She has been on glipiz ene 2.5 mg up to 5 mg by mouth daily in the past. She is wondering if this needs to be reinstated atthis time. She otherwise indicates that she is [...] medication regimen would be of benefit. She wasinitiated on glipizide 2.5 mg by mouth daily [...] expressed understanding of the content. Nicki Holt D.N.P./Elmer/gene Electronically Signed By: NICKI HOLT DNP, FNP On: 03/14/2014 07:28 AM Source: [facility] MHSDOLBEYNONRADSYS Document Id: [id number] ERER ASSEMBLER documented in this encounter Miscellaneous Notes Miscellaneous - Nicki Holt D.N.P., C.N.P. - 03/13/2014 9:35 AM SOLDERER ASSEMBLER Ambulatory Patient Summary [address] [id number] Visit Information Name: ARCHIE BAZAN [facility] Number: [id number] Current Date: 03/13/2014 09:35:16 Physicians [...] 30 minutes before breakfast New Routed to [place] [id number] levothyroxine (levothyroxine 75 mcg (0.075 mg) oral [...] emergency. Electronically Signed By: NICKI HOLT DNP, LINOTYPE MECHANIC Signed On:13-MAR-2014 09:35:03 Your Allergies & Intolerances [...] appointment detail needed. Your Goals/Additional instructions: Source: [facility] POWERCHART Document Id: [id number] ERER ASSEMBLER Miscellaneous - Nicki Holt, Maritza.N.P., C.N.P. - 03/13/2014 9:35 AM SOLDERER ASSEMBLER Ambulatory Discharge Medication List [address] [id number] Visit Information Name: ARCHIE BAZAN PAU [facility] Number: [id number] Visit Date: 03/13/2014 09:35:13 Attending [...] 30 minutes before breakfast New Routed to [address] [address] levothyroxine (levothyroxine 75 mcg (0.075 mg) oral [...] emergency. Electronically Signed By: NICKI HOLT DNP, LINOTYPE MECHANIC Signed On:13-MAR-2014 09:35:03 Additional Information: Source: [facility] POWERCHART Document Id: [id number] ERER ASSEMBLER Miscellaneous - Vitaliy Darnell L.P.N. - 03/13/2014 8:32 AM CST Adult Upper Cutter Intake/History Adult Upper Cutter Intake/History Entered On: 03/13/2014 8:48 SOLDERER ASSEMBLER Performed On: 03/13/2014 8:32 SOLDERER ASSEMBLER by VITALIY DARNELL LPN Intake Temperature Core : 36.4 DegC(Converted to: 97.5 DegF) (LOW) Peripheral Pulse Rate : 68 /min Respiratory Rate : 16 /min Heart Rhythm : Regular Systolic Blood Pressure : 120 mmHg Diastolic Blood Pressure : 76 mmHg NIBP Mean : 91 mmHg BP Location : Left upper extremity Blood Pressure Cuff Size : Large DARNELL, HETALEJANDRO Anderson [facility] - 03/13/2014 8:50 SOLDERER ASSEMBLER Height : 158 cm(Converted to: 5 ft 2 inch(es), 62 inch(es)) Actual Weight : 87.3 kg(Converted to: 192 lb 7 oz) Weight Source : Standing scale Dosing Weight Clinic : 87.3 kg Clinic BSA : 1.96 Body Mass Index : 34.97 kg/m2 VITALIY DARNELL [facility] - 03/13/2014 8:32 SOLDERER ASSEMBLER General Info Information Given By : Patient Preferred Communication Mode : Verbal Languages : Kazakh Is Patient Female and 13-50 no hysterectomy : No VITALIY DARNELL LPN - 03/13/2014 8:32 SOLDERER ASSEMBLER Subjective Pain Symptoms : No VITALIY DARNELL SPOOLING OPERATOR - 03/13/2014 8:32 SOLDERER ASSEMBLER Dependent Habits Tobacco Use/Currently Using : No Tobacco Use/Last 12 months : No Tobacco Use/Advised to Quit : No Exposure to Tobacco Smoke : Care provider denies smoking in home Smoking Status : Never smoker VITALIY DARNELL [facility] - 03/13/2014 8:32 SOLDERER ASSEMBLER Tobacco Use Grid Last Use : Never VITALIY DARNELL [facility] - 03/13/2014 8:32 SOLDERER ASSEMBLER Alcohol Use : No VITALIY DARNELL LPN - 03/13/2014 8:32 SOLDERER ASSEMBLER Caffeine Use Grid Caffeine Use : None Frequency : Occasionally Amount : 1 cup per week VITALIY DARNELL [facility] - 03/13/2014 8:32 SOLDERER ASSEMBLER Recreational Drug Use Grid Drug Use : None VITALIY DARNELL LPN - 03/13/2014 8:32 SOLDERER ASSEMBLER ID Screen Drug Resistant Organism : No Travel Within Last 21 Days : No VITALIY DARNELL LPN 03/13/2014 8:32 SOLDERER ASSEMBLER [facility] [employer] Document Id: [id number] SOLDERER ASSEMBLER!11 ERER ASSEMBLER Telephone Encounter - Conversion, Historical Provider Ser - 12/21/2013 12:24 PM CST diarrhea Document Contains Addenda Addendum by JENA BEYER V on 23 December 2013 10:56:18 SOLDERER ASSEMBLER Pt called but only able to LVM Addendum by NICKI HOLT DNP, FNP on 23 December 2013 10:46:40 SOLDERER ASSEMBLER From: NICKI HOLT DNP, FNP To: [place] Nurse Line; Sent: 12/23/2013 10:46:40 SOLDERER ASSEMBLER Subject: RE: diarrhea Addendum by NICKI HOLT DNP, FNP on 23 December 2013 10:46:37 SOLDERER ASSEMBLER pt. to give it more time, her diarrhea may have been from a gastroentesital viral infection. pleaseadvise. Addendum by JENA BEYER V on 22 December 2013 08:58:24 SOLDERER ASSEMBLER From: JENA BEYER V ([place] Nurse Line) To: NICKI HOLT DNP, FNP; Sent: 12/22/2013 08:58:24 SOLDERER ASSEMBLER Subject: RE: diarrhea Pt reported she picked up the 1000mg ER not immediate release. Pharmacy contacted & verified this, so diarrhea in NOT from IR .Should pt just give it a bit more time? Or fill the new RX for 500mg ER x2 tabs & divide the dosing? Addendum by NICKI HOLT DNP, FNP on 22 December 2013 05:33:14 SOLDERER ASSEMBLER From: NICKI HOLT DNP, FNP To: [place] Nurse Line; Sent: 12/22/2013 05:33:14 SOLDERER ASSEMBLER Subject: RE: diarrhea Addendum by NICKI HOLT DNP, FNP on 22 December 2013 05:33:06 SOLDERER ASSEMBLER I had originally ordered 1000 ER but she told me due to cost the 500 was cheaper, so I ordered the 500 (but this was not ER), I just sent a new script for the 500 ER to take 2 tabs daily, please inform pt. thank you. From: JENA BEYER V ([place] Nurse Line) To: NICKI HOLT DNP, FNP; Sent: 12/21/2013 12:24:09 SOLDERER ASSEMBLER Subject: diarrhea Pt spoke w/ Expert RN [...] her @ above # to discuss Source: [facility] [employer] Document Id: [id number] Miscellaneous - Nicki Holt, D.N.P., C.N.P. - 12/20/2013 8:26 PM SOLDERER ASSEMBLER Normal Results Letter 20 December 2013 ARCHIE BAZAN [address] [place] [id number] Dear ARCHIE BAZAN, I am pleased to report that your Pap results were normal! Your next pap will be due in November or 2016!!! Please follow up with us as we discussed during your visit or sooner if you have any concerns. If you have questions or concerns, please do not hesitate to call our office. Sincerely, NICKI HOLT [address] [address] Electronic Signature Electronically Signed By: NICKI HOLT DNP, FNP On: 20 December 2013 This document has images extracted. Source: [facility] [employer] Document Id: [id number] Electronically signed by Conversion, [facility] Hand Bender [id number] at 07/13/2016 1:27 PM CDT documented in this encounter Plan of Treatment Not on filedocumented as of this encounter Visit Diagnoses Not on filedocumented in this encounter Additional Health Concerns Assessment Noted Time PHQ-9 Depression Total Score: 1 06/01/2013 1:42 PM CDT documented as of this encounter
--- OUTSIDE RECORDS SUMMARY | 2021-10-24 10:31 | XMS_ITS | Encounter Summary ---
:1945 Author Organization [facility] Address [address] [place] [address] Care Team Providers Name Role Phone Unavailable Primary Care Provider Unavailable Encounter Details Date Type Department Care Team Description 12/12/2013 Hospital Encounter [facility]X [facility] Vickey Holt, MAL, C.N.P., D. N.P. [address] [place] [address] (Wo rk) Social History Tobacco [...] D.N.P., CJairoNJairoP. - 12/12/2013 8:13 AM CDT [id number] CHIEF COMPLAINT/REASON FOR VISIT Routine physical examination. HISTORY OF PRESENT ILLNESS Patient is a 68-year-old female that presents to the clinic today for a routine physical examinationand also medication renewal. She does suffer from hyperlipidemia and also type 2 diabetes mellitus in which previously in the past she has utilized a health and middle school volleyball coach that has actually been very beneficial for her helping her lose weight. She indicates that now she is no longer seeing the health and middle school volleyball coach as this is no longer a service provided here at the clinic and subsequently she has now had greater than a 12 pound weight gain just in the last year. She indicates that she is aware of her habits that have contributed to [...] 158 cm, weight 87.9 kg. BMI 35.21 kg/sq m. SYSTEMS REVIEW GENERAL: Denies extreme fatigue, unexplained weight loss/gain or concerns for depression, thoughts of suicide, trouble concentrating or memory concerns. HEENT: Denies visual changes/disturbances, hearing changes/disturbances, difficulty chewing/swallowing. HEART: Denies palpitations, chest pain, shortness of breath with and without exertion. GASTROINTESTINAL: Denies abdominal pain, difficulty having bowel movements or frequent episodes of diarrhea. GENITOURINARY : Denies urgency, frequency, or burning with urination. Denies coital or post coital pain or other coital concerns. MUSCULOSKELETAL: Denies joint pain or muscle fatigue. NEUROLOGIC: Denies frequent headaches, dizziness or numbness/tinglingof the extremities. PHYSICAL EXAMINATION GENERAL: Patient is alert/oriented x3. PSYCHIATRIC: Patients speech is focused and well directed, affect is appropriate. HEAD: Normocephalic/atraumatic. PUPILS: GENE. OROPHARYNX: [place] and moist. TYMPANIC MEMBRANES: Bilateral TMs are [...] external genitalia. Normal appearing cervix without unusual discharge and nonfriable. Uterus and adnexa are unremarkable. Patient denies cervical motion tenderness. Pap is presently pending. PULSES: Radial/pedal/tibial pulses +2/4. SKIN: Without unusual rashes or suspicious lesions. EXTREMITIES: Equally strong/intact, no lower extremity edema noted. Note that diabetic monofilament testing was completed and noted to be otherwise unremarkable. (Please see EMR for documentation). NEUROLOGIC: Upper/lower deep tendon reflexes are brisk at +2. Cranial nerves II- XII are grossly intact and symmetric. Patient ambulates with a steady gait. DIAGNOSTICS Sodium 138.6, potassium 4.0, creatinine 0.79, GFR greater than 60. Fasting glucose 148, total cholesterol 184, triglycerides 199, HDL 56, LDL 88. Hemoglobin A1c is presently pending. A urine albumin less than 12, urine creatinine 96.2. TSH is [...] otherwise up-to-date for her routine medical care. She felt comf ortable with this treatment plan. 2. Hyperlipidemia: Presently, at this time, I did reinstate her simvastatin 10 mg by mouth daily in which currently her LDL cholesterol is at goal at 88. Her triglycerides are elevated but most likely this is due to her diabetes. We are currently pending her hemoglobin A1c at this time. She felt comfortable with this treatment plan. 3. Hypothyroidism: Presently, at this time, I did reinstate her levothyroxine 75 mcg by mouth daily in which we will plan on contacting the patient if we require any further adjustments pending her TSHresults. We will send her a copy of these results in the mail as well. She felt comfortable with this treatment plan. 4. Type 2 diabetes mellitus: Presently, at this time, given her previous hemoglobin A1c as of May of 2013 was noted to be 7.49%, I indicated that I feel it would be most appropriate to reinstate her metformin 500 mg tablets in which she would [...] plan on contacting the patient regarding her hemoglobin A1c results from today as well and [...] Patient/Child/Caregiver expressed understanding of the content. Corrine LucasN.PJairo/F.N.P/gene Electronically Signed By: VICKEY HOLT DNP, FNP On: 12/13/2013 01:12 PM Source: [facility] MHSDOLBEYNONRADSYS Document Id: [id number] documented in this encounter Miscellaneous Notes Miscellaneous [...] I could not see that had been completed. Sylvia advised Lab and it was ordered. Called patient and advised labs still pending. She will be notified when complete. Source: [facility] POWERCHART Document Id: [id number] Electronically signed by Sae, [facility] Marine Designer [id number] at 07/15/2016 1:19 AM CDT Miscellaneous - Vickey Holt D.N.P., C.N.P. - 12/12/2013 12:17 PM CDT Ambulatory Patient Summary [address] [id number] Visit Information Name: MARCIAL BAZAN [facility] Number: [id number] Current Date: 12/12/2013 12:17:14 Physicians [...] a day for thyroid replacement Routed to [address] [id number] metFORMIN (metFORMIN 500 mg oral tablet) 2 Tablet(s), Oral, two times a day with meals This is a CHANGE Routed to [address] [address] simvastatin (simvastatin 10 mg oral tablet) 1 Tablet(s), Oral, once a day (at bedtime) Take for highcholesterol. Routed to [address] [address] Stop Taking the Following Medications: [...] emergency. Electronically Signed By: VICKEY HOLT DNP, ASSOCIATE PROFESSOR OF PHYSICS Signed On:12-DEC-2013 09:26:03 Your Allergies & Intolerances [...] Appointments Date Time Location Provider 03/13/2014 08:45 [facility] Gail Gabriel MD Attention: Contact your local Clinic if further appointment detail needed. Your Goals/Additional instructions: Source: [facility] POWERCHART Document Id: [id number] Miscellaneous - Vickey Holt D.N.P., C.N.P. - 12/12/2013 12:17 PM CDT Ambulatory Discharge Medication List [address] [id number] Visit Information Name: MARCIAL BAZAN [facility] Number: [id number] Visit Date: 12/12/2013 12:17:11 Attending [...] a day for thyroid replacement Routed to [address] [address] metFORMIN (metFORMIN 500 mg oral tablet) 2 Tablet(s), Oral, two times a day with meals This is a CHANGE Routed to [address] [address] simvastatin (simvastatin 10 mg oral tablet) 1 Tablet(s), Oral, once a day (at bedtime) Take for highcholesterol. Routed to [address] [address] Stop Taking the Following Medications: Medication list [...] FNP Signed On:12-DEC-2013 09:26:03 Additional Information: Source: [facility]1[employer] Document Id: [id number] Miscellaneous - Vickey Holt D.N.PJairo, C.N.P. - [...] DNP, FNP - 12/12/2013 9:08 CDT Source: [facility] Document Id: [id number] CDT!14 Miscellaneous - Sylvia Darnell L.P.N. 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 Intake/History Entered On: 12/12/2013 8:25 CDT Performed [...] 41.5 cm(Converted to: 16 inch(es)) SYLVIA DARNELL [facility] - 12/12/2013 8:26 CDT Chief Complaint : Pre-op for colonoscopy Height : 158 cm(Converted to: 5 ft 2 inch(es), 62 inch(es)) SYLVIA DARNELL [facility] - 12/12/2013 8:22 CDT General Info Information Given By : Patient Languages : Korean Is Patient Female and 13-50 no hysterectomy : No DARNELLSYLVIA LPN - 12/12/2013 8:22 CDT Subjective Pain Symptoms : No DARNELL ANTWANALEJANDRO Anderson [facility] - 12/12/2013 8:22 CDT Dependent Habits Tobacco Use/Currently Using : No Tobacco Use/Last 12 months : No Tobacco Use/Advised to Quit : No Exposure to Tobacco Smoke : Care provider denies smoking in home Smoking Status : Never smoker DARNELLSYLVIA [facility] - 12/12/2013 8:22 CDT Tobacco Use Grid Last Use : Never SYLVIA DARNELL LPN 12/12/2013 8:22 CDT Alcohol Use : No SYLVIA DARNELL [facility] 12/12/2013 8:22 CDT Caffeine Use Grid Caffeine Use : None Frequency : Occasionally Amount : 1 cup per week SYLVIA DARNELL [facility] 12/12/2013 8:22 CDT Recreational Drug Use Grid Drug Use : None SYLVIA DARNELL [facility] 12/12/2013 8:22 CDT Source: [facility]1[employer] Document Id: [id number] CDT!19 documented in this encounter Plan of Treatment Not on filedocumented as of this encounter Procedures Procedure Name Priority Date/Time Associated Diagnosis Comme nts THINPREP SCREEN HPV Routine 12/12/2013 10:12 AM R esults for this REFLEX CDT procedure are i n the results section. ALBUMIN, RANDOM, U Routine 12/12/2013 9:47 AM Res ults for this CDT procedure are i n the results section. LIPID PANEL, S Routine 12/12/2013 9:14 AM Results for this CDT procedure are i n the results section. THYROID-STIMULATING Routine 12/12/2013 9:14 AM Re sults for this HORMONE-SENSITIVE CDT procedure are in (S-TSH) the results section. BASIC METABOLIC Routine 12/12/2013 9:14 AM Result s for this PANEL, S/P CDT procedure are i n the results section. documented in this encounter Results Pathology ThinPrep Screen HPV Reflex (12/12/2013 10:12 AM CDT) [facility] gist Method Time Signature Interpretation [id number] POWERCHART HXThPrep Scrn See Comment POWERCHART [facility] Comment: A. ??ThinPrep Pap Test Screen (Cervical/ Endocervical HPV Reflex): Satisfactory for evaluation. Negative for intraepithelial lesion or m alignancy. HXThPrep Scrn [facility] See Comment KAIT RCHART Comment: Report electronically signed by BLANCA Mcgrath (ASCP) 12/20/2013 10:28 Interpreted by: BLANCA Mcgrath (ASCP) Spec [facility] See Comment POWERCHART Comment: A. ??ThinPrep Pap Test Screen (Cervical/ Endocervical HPV Reflex): Received cloudy specimen in ThinPrep via l. Test Performed by: [place] [address] Tree Shear Operator: Ronak Escobar Specimen (Source) Anatomical Collection Method Collection Time Re ceived Time Location / / Volume Laterality Cervix/Endocervix 12/12/2013 10:12 AM CDT Vickey Holt APRN, C.N.P., D.N.P. LAB PAP PATHDX ORDERABLES Performing Organization Address City/State/ZIP Code Phon e Number POWERCHART (ABNORMAL) Microalbumin, Random, Urine (12/12/2013 9:47 AM CDT) Analysis Performed At [facility] logist Time Signature HXU Albumin % <12.0 [...] - 20 POWERCHART MMOLL BUN (Blood Urea 15 7 - 18 POWERCHART Nitrogen), S MGDL Chloride, S 103 98 - 107 POWERCHART MMOLL CO2 Total 24.6 23.0 - POWERCHART 29.0 MMOLL Creatinine 0.79 0.60 - POWERCHART 1.30 MGDL Glucose 148 (H) 70 - 139 POWERCHART MGDL Calcium, Total, 9.8 8.8 - 10.2 POWERCHART S MGDL Sodium, S 138.6 135.0 - POWERCHART 145.0 MML Potassium, S 4.0 3.6 - 4.8 POWERCHART MMOLL HXeGFR (MDRD) >60 >=60 POWERCHART [id number] eGFR >60 >=60 POWERCHART Black/ [id number] [place] Specimen (Source) Anatomical Collection Method Collection Time [...]
--- OUTSIDE RECORDS SUMMARY | 2021-10-24 10:32 | XMS_ITS | Encounter Summary ---
:1945 Author Organization [facility] Address [address] [place] [address] Care Team Providers Name Role Phone Unavailable Primary Care Provider Unavailable Encounter Details Date Type Department Care Team Description 08/17/2012 Hospital Encounter [facility] XRAY Provider, Histori joao Social History [...]
--- OUTSIDE RECORDS SUMMARY | 2021-10-24 10:32 | XMS_ITS | Encounter Summary ---
:1945 Author Organization [facility] Address [address] [place] [address] Care Team Providers Name Role Phone Unavailable Primary Care Provider Unavailable Encounter Details Date Type Department Care Team Description 08/24/2012 - Hospital Encounter HX [facility] Raj Asha forte 02/21/2013 AURELIANO Anderson APRN, C.N.P., D.N.P. [address] [place] [address] Social History Tobacco Use Types Packs/Day Years [...] Lovell, P.T. - 09/02/2012 12:00 AM CDT [id number] IMPRESSION/REPORT/PLAN This patient came in today with continued issues in her shoulder. She did have an MRI performed and she does show that she has a complete [...] or not she wants to just give this time see if it heals or if she wants to follow-up with an specialist field engineer. Her strength remains quite good overall. However, she still has difficulty bringing her arm up over 90 degrees. This makes it d ifficult in managing her hair and other activities [...] shoulder issues. She will possibly see an specialist field engineer. PLAN: At this time, the patient will be discharged from physical therapy. We may follow-up with further therapy at a later time should she choose to do so. We may also have follow-up after she sees an specialist field engineer. Otilio Montez/kena Electronically Signed By: CHILANGO LOVELL On: 09/06/2012 07:02 AM Source: [facility] MHSDOLBEYNONRADSYS Document Id: [id number] documented in this encounter Medications at Time of Discharge Medication Sig Dispensed Refills Start Date End Date ASPIRIN ORAL Take 81 mg by mouth daily. Take 0 with food for [facility]. documented as of this encounter Progress Notes Chilango Lovell P.T. - 08/27/2012 12:00 AM CDT [id number] IMPRESSION/REPORT/PLAN Marcial comes in today stating that she has been aggressive with her exercises at home. We did continue with passive range of motion for the shoulder today. We are able to increase the shoulder flexion at the present time to 150 to 155 degrees. External rotation is still somewhat limited, this going toapproximately 45 degrees. Internal rotation is most limited though she can bring her hand behind herback to approximately the PSIS. Once again, we did check strength and this does not appear to be rotator cuff involvement. We did review her exercises as well. She is to continue with these exercises. Total time today was 30 minutes of manual. ASSESSMENT: The patient is with increased mobility at this time. Plan will be to follow-up next week. Otilio Montez/[facility] DOCID: [110] Electronically Signed By: CHILANGO LOVELL On: 08/31/2012 02:18 PM Source: [facility] MHSDOLBEYNONRADSYS Document Id: [id number] documented in this encounter Consult Notes Chilango Lovell P.T. - 08/24/2012 12:00 AM CDT [id number] CHIEF COMPLAINT/REASON FOR VISIT This patient comes in with complaints of pain in her right arm. She notes that she feels this happened approximately 6 months ago when she was stepping out of a pickup. She was hanging on with her right hand to the pickup when she slipped and she felt a tug in her shoulder. After that time, she had little pain but this did heal and she was without pain for a considerable amount of time. This is the only incident that she can remember which may caused such an issue at this time. She presently states that she has minimal pain, this being no more than 1 to 2 on a 0 to 10 pain scale. However, she has become very limited with her mobility. She [...] lifting will make this more agitated and painful. She does feel that heat does help along with ice as needed. She cannot palpate anything in the shoulder that is painful in particular. It is basically most painful when she tries to move it. CURRENT MEDICATIONS She is on metformin along with aspirin and medication for thyroid. IMPRESSION/REPORT/PLAN Upon observation, the patient ambulates into therapy without difficulty. She did perform a tug test.She is not a fall risk at this time. With patient in standing, she did show which she could do for shoulder flexion. She is able to bring her shoulder to approximately 85 to 90 degrees actively. At this point, she has some limitations. She is also limited with internal rotation behind her back. External rotation is also limited and painful. We did check this all passively. Passively she is able to bring her shoulder to 100 degrees. There is pain at this point. Internal rotation, she is able to bringher hand to approximately L4-L5. External rotation is [...] way. In presentation, the patient presents with what appears to be adhesive capsulitis. We did treat patient today with hot packs to the shoulder times 20 minutes followed by passive range of motion for both flexion/external rotation and internal rotation. After a considerable amount of manual techniques, we were able to obtain shoulder flexion to 130 degrees. External rotation was to approximately 45 degrees with internal rotation still quite limited to approximately L4-L5. We did instruct patient with alison exercises to do at home along with towel exercises to work on internal rotation. She is to do this at least 2 times a day if possible for durations of 5 to 10 minutes. The patient did fill out the [employer] score. Based upon this, G- code would be G8981 with a modifier of [...] be aggressive with her home exercises which were instructed to her. Pulleys were also given to her. Otilio Montez/kena cc: Vickey Holt D.N.P./Elmer Electronically Signed By: CHILANGO LOVELL On: 08/31/2012 02:32 PM Co-Signed By: VICKEY HOLT [facility] On: 09/06/2012 08:30 AM Source: [facility] MHSDOLBEYNONFISH Document Id: [id number] documented in this encounter Miscellaneous Notes Miscellaneous [...] CARDOZA LPN - 11/25/2012 12:36 CDT Source: [facility] POWERCHART Document Id: [id number]!5 Miscellaneous - Conversion, Historical Provider Ser - 10/11/2012 10:37 AM CDT decrease BP med From: JENA BEYER V To: VICKEY HOLT DNP, FNP; JENA BEYER V; Sent: 10/11/2012 10:37:43 CDT Subject: decrease BP med Pt reports she got BP cuff to monitor @ home .BP has been 110-112/64-66 & she wonders if you are going to decrease or D/C her Norvasc 2.5mg daily as discussed @ last visit. Is tolerating dose well. Decrease not mentioned in notes. Advised pt I would update you about her home readings but that she is on a low dose & with her diabetes you most likely not D/C or decrease. Please advise Source: [facility] Rambus Document Id: [id number] Miscellaneous - Petra Lopez L.PJairoN. - 10/11/2012 [...] that sounds fine, thank you. Addendum by EPTRA LOPEZ LPN on 11 October 2012 12:10:39 [...] as needed Thanks Petra Addendum by VICKEY HOTL DNP, FNP on 11 October 2012 11:35:38 [...] if unable to reach per her request Thanks Petra Source: [facility] POWERCHART Document Id: [id number] Miscellaneous - Sylvia Darnell L.PJairoN. - 09/08/2012 3:20 PM CDT General Message Document Contains Addenda Addendum by VICKEY HOLT DNP, FNP on 13 September 2012 11:45:38 CDT noted. Addendum by SYLVIA DARNELL LPN on 13 September 2012 11:32:16 CDT From: SYLVIA DARNELL LPN To: VICKEY HOLT DNP, FNP; Sent: 09/13/2012 11:32:16 CDT Subject: FW: General Message Spoke with Amol with waiting till September for Dr. Velasco. Appointment set up with Dr. Velasco([facility]) in [place] 10/06/12 at 1350. Marcialn aware to bring CD and report of MRI. Addendum by SYLVIA DARNELL LPN on 13 September 2012 11:30:23 CDT From: SYLVIA DARENLL LPN To: SYLVIA DARNELL LPN; Sent: 09/13/2012 11:30:23 CDT Subject: FW: General Message Addendum by VICKEY HOLT DNP, FNP on 09 September 2012 15:18:36 CDT noted. From: SYLVIA DARNELL LPN To: VICKEY HOLT DNP, FNP; Sent: 09/08/2012 15:20:17 CDT Subject: General Message Spoke with Nathalie to set patient up with Dr. Velasco in [facility]. Booked till 10/06/12. Will talk with patient next wk when she gets back from vacation. Source: [facility] POWERCHART Document Id: [id number] documented in this encounter Plan of Treatment Not on filedocumented as of this encounter Visit Diagnoses Not on filedocumented in this encounter
--- OUTSIDE RECORDS SUMMARY | 2021-10-24 10:32 | XMS_ITS | Encounter Summary ---
:1945 Author Organization [facility] Address [address] [place] [address] Care Team Providers Name Role Phone Unavailable Primary Care Provider Unavailable Encounter Details Date Type Department Care Team Description 10/14/2012 Hospital Encounter HX [facility] Nicki Anthony, MAL, C.N.P., D. N.P. [address] [place] [address] (Wo rk) Social History Tobacco [...] Progress Notes Conversion, Historical Provider Ser - 10/14/2012 9:50 AM CDT [id number] HEALTH & WELLNESS COACHING Patient was seen at [facility] in [place] on 10/14/2012 for a follow-up wellnesscoaching visit for the area of diabetes management and weight loss. CHIEF COMPLAINT/REASON FOR VISIT Follow-up wellness coaching visit. OBJECTIVE INFORMATION Her weight is at 80.7 kg which is at 177.54 pounds. This is 0.22 pounds up since our last visit. Perceived health competency scale worksheet completed on 10/14/2012: Question #1: agree. Question #2: disagree. Question #3. strongly agree. Question #4: agree. Question #5: agree. Question #6: strongly disagree. Question #7: neutral. Question #8: neutral. SESSION SUMMARY Marcial reports having a challenging last week and a half. She has been challenged with the ability to maintain her exercise program and healthy eating lifestyle. She feels that this is due to stress asan increase in her stress level over the last few weeks around her family and her granddaughter. She reports has been eating out more than normal and also has been taking in more portion size than whatshe has in the last few weeks. She also said that with the socialization she has also let herself have more sweets and coffee and has not been walking as much as she was before. We discussed a strategyof how she could get back into her healthy plan and she came up with the following ideas. She is going to start walking again and did so this morning. She is also going to continue with the dietary regimen of cutting out sweets and just using naturally sweet vegetables and fruits in her diet. She is also going to cut back her meat intake to just once a week and then implement the use of chicken and fish instead. Around the area of stress management, she is going to start listening to her relaxation CDs again and also just doing more breathing and trying not to worry as much. FOLLOWUP PLAN We will continue on with her overall goal of weight loss and overall getting off her diabetes medication. She did say that she was able to step down on her diabetes medication with her primary care physician last week which made her happy and is really motivated to continue to move forward and to get completely off of it. We will continue to see Marcial every 2 weeks and move forward into getting her to her ultimate goal of being diabetic free. Annie Miramontes/arnol cc: Nicki Anthony D.N.P./NereidaNLizbeth Electronically Signed By: ANNIE MIRAMONTES On: 10/28/2012 05:04 PM Source: [facility] MHSDOLBEYNONRADSYS Document Id: [id number] documented in this encounter Plan of Treatment Not on filedocumented as of this encounter Visit Diagnoses Not on filedocumented in this encounter
--- OUTSIDE RECORDS SUMMARY | 2021-10-24 10:32 | XMS_ITS | Encounter Summary ---
:1945 Author Organization [facility] Address [address] [place] [address] Care Team Providers Name Role Phone Unavailable Primary Care Provider Unavailable Encounter Details Date Type Department Care Team Description 09/23/2012 Hospital Encounter HX [facility] Nicki Anthony, MAL, C.N.P., D. N.P. [address] [place] [address] (Wo rk) Social History Tobacco [...] Provider Ser - 09/23/2012 8:47 AM CDT [id number] HEALTH & WELLNESS COACHING Patient was seen [...] doing pickles and baking. She wants to reallycontinue on a different track and is ready [...] the metformin. She also is interested in the idea of relaxing, walking and then also taking it up a bit as far as the next level of weight loss of the next 15 pounds. NEWS GOALS SET Would like to continue on with this 1.5-pound weight loss. In addition, would like to do another 15 pounds total for her weight loss goal plan. FOLLOWUP PLAN We will continue to meet every 1 to 2 weeks moving forward towards her new wellness goal. Annie Pérez/arnol cc: Nicki Anthony D.N.P./Stanislav.N.P Electronically Signed By: ANNIE PÉREZ On: 10/12/2012 02:34 PM Source: [facility] PRESTONSDOLSTEVENYNPERRY Document Id: [id number] documented in this encounter Plan of Treatment Not on filedocumented as of this encounter Visit Diagnoses Not on filedocumented in this encounter
--- OUTSIDE RECORDS SUMMARY | 2021-10-24 10:32 | XMS_ITS | Encounter Summary ---
:1945 Author Organization [facility] Address [address] [place] [address] Care Team Providers Name Role Phone Unavailable Primary Care Provider Unavailable Encounter Details Date Type Department Care Team Description 04/07/2013 Hospital Encounter HX [facility] Nicki Holt, MAL, C.N.P., D.N.P. [address] [place], [place] [phone] (Wo rk) Social History [...] by mouth daily. Take 0 with food [employer] [facility]. documented as of this encounter Miscellaneous Notes Miscellaneous - Nicki Holt, Maritza.N.P., C.N.P. - 04/07/2013 11:17 AM IT SYSTEMS ADMINISTRATOR Results Notification Document Contains Addenda Addendum by VITALIY VILLEDA LPN on 07 April 2013 12:31:54 IT SYSTEMS ADMINISTRATOR Spoke with Malik regarding below results. Addendum by VITALIY VILLEDA LPN on 07 April 2013 11:26:14 IT SYSTEMS ADMINISTRATOR Left message to return call. From: NICKI HOLT DNP, BOX COVERING MACHINE OPERATOR Sent: 04/07/2013 11:17:42 IT SYSTEMS ADMINISTRATOR ! Show up: 04/07/2013 11:17:42 IT SYSTEMS ADMINISTRATOR Subject: Results Notification Actions: Notify patient of [...] TSH 2.54 mcIU/mL (0.30 - 5.00) Source: [facility] POWERCHART Document Id: [id number] Electronically signed by Conversion, [facility] Manager Clinical [id number] at 07/14/2016 11:11 PM CDT documented in this encounter Plan of Treatment Not on filedocumented as of this encounter Procedures Procedure Name Priority Date/Time Associated Comments Diagnosis URINALYSIS, ROUTINE Routine 04/07/2013 10:11 Resu lts for this AM IT SYSTEMS ADMINISTRATOR procedure are i n the results section. URINE MICROSCOPIC Routine 04/07/2013 10:11 Result s for this AM IT SYSTEMS ADMINISTRATOR procedure are i n the results section. THYROID-STIMULATING Routine 04/07/2013 9:40 AM Re sults for this HORMONE-SENSITIVE IT SYSTEMS ADMINISTRATOR procedure are in (S-TSH) the results section. documented in this encounter Results Urine Microscopic (04/07/2013 10:11 AM IT SYSTEMS ADMINISTRATOR) [facility] Method Time Signature HXUr WBC 1-3 POWERCHART Red Blood Cell Negative 0 - 2 POWERCHART Clump, Urine HXUr Epithelial Occasional POWERCHART Comment: occasional squamous epis seen Specimen Anatomical Collection Method Collection Time Receive d Time (Source) Location / / Volume Laterality Urine 04/07/2013 10:11 04/07/2013 AM IT SYSTEMS ADMINISTRATOR 10:11 AM IT SYSTEMS ADMINISTRATOR Nicki Holt APRN, C.N.P., D.N.P. LAB URINE ORDE RABLES Performing Organization Address City/State/ZIP Code Phon e Number POWERCHART Urinalysis, Routine (04/07/2013 10:11 AM IT SYSTEMS ADMINISTRATOR) [facility] Method Time Signature HXUr Color Yellow Yellow POWERCHART Appearance Clear Clear POWERCHART Glucose Trace Negative POWERCHART HXBILIRUBIN Negative Negative POWERCHART Ketones, QL(U) Negative Negative POWERCHART Specific 1.015 1.000 - POWERCHART [place], POCT, U 1.030 pH, POCT, Urine 5.5 5.0 - 8.0 POWERCHART Protein, Ur, Dip Negative Negative POWERCHART Urobilinogen 0.2 POWERCHART HXNITRITE Negative Negative POWERCHART HXBLOOD Trace-lysed POWERCHART Leukocyte 1+ Negative POWERCHART Esterase Source Clean Void POWERCHART Urine Specimen (Source) Anatomical Collection Method Collection Time Re ceived Time Location / / Volume Laterality Urine 04/07/2013 10:11 AM IT SYSTEMS ADMINISTRATOR Nicki Holt APRN, C.N.P., D.N.P. LAB URINE ORDE RABLES Performing Organization Address City/State/ZIP Code Phon e Number POWERCHART Thyroid-Stimulating Hormone-Sensitive (s-TSH) (04/07/2013 9:40 AM IT SYSTEMS ADMINISTRATOR) athologist Signature TSH 2.54 0.30 - 5.00 POWERCHART (Thyrotropin) MCIUML Specimen (Source) Anatomical Collection Method Collection Time Re ceived Time Location / / Volume Laterality Blood 04/07/2013 9:40 AM IT SYSTEMS ADMINISTRATOR Nicki Holt APRN C.N.P., D.N.P. LAB BLOOD ADD- ON Performing Organization Address City/State/ZIP Code Phon e Number POWERCHART documented in this encounter Visit Diagnoses Not on filedocumented in this encounter
--- OUTSIDE RECORDS SUMMARY | 2021-10-24 10:32 | XMS_ITS | Encounter Summary ---
:1945 Author Organization [facility] Address [address] [place] [address] Care Team Providers Name Role Phone Unavailable Primary Care Provider Unavailable Encounter Details Date Type Department Care Team Description 02/07/2013 Hospital Encounter HX [facility] Nicki Holt, MAL, C.N.P., D.N.P. [address] [place] [phone] (Wo rk) Social History Tobacco Use [...] by mouth daily. Take 0 with food [employer] [facility]. documented as of this encounter Miscellaneous Notes Miscellaneous - Nicki Holt, Maritza.N.P., C.N.P. - 02/07/2013 12:29 PM NEW HOME SALES CONSULTANT Normal Results Letter 07 February 2013 ARCHIE BAZAN [address] [place] [address] [id number] Dear ARCHIE BAZAN, As we discussed, your blood sugars are [...] Blood 1+ 02/07/2013 Trace-intact 10/21/2012 Negative 09/14/2012 Trace-lysed 09/02/2012 Negative - UA Nitrite Negative 02/07/2013 [...] 04/22/2012 0.30 - 5.00 Sincerely, NICKI HOLT [facility] [place] [address] Electronic Signature Electronically Signed By: NICKI HOLT DNP, RIA On: 07 February 2013 This document has images extracted. Source: [facility] POWERCHART Document Id: [id number] Electronically signed by Conversion, [facility] Furnace Unloader [id number] at 07/16/2016 10:59 PM CDT documented in this encounter Plan of Treatment Not on filedocumented as of this encounter Procedures Procedure Name Priority Date/Time Associated Comments Diagnosis URINALYSIS, ROUTINE Routine 02/07/2013 9:24 Resul ts for this AM NEW HOME SALES CONSULTANT procedure are i n the results section. URINE MICROSCOPIC Routine 02/07/2013 9:24 Results for this AM NEW HOME SALES CONSULTANT procedure are i n the results section. LIPID PANEL, S Routine 02/07/2013 9:21 Results fo r this AM NEW HOME SALES CONSULTANT procedure are i n the results section. ALANINE AMINOTRANSFERASE Routine 02/07/2013 9:21 Results for this (ALT), S/P AM NEW HOME SALES CONSULTANT procedure are i n the results section. THYROID-STIMULATING Routine 02/07/2013 9:21 Resul ts for this HORMONE-SENSITIVE AM NEW HOME SALES CONSULTANT procedure are in (S-TSH) the results section. HEMOGLOBIN A1C, B Routine 02/07/2013 9:21 Results for this AM NEW HOME SALES CONSULTANT procedure are i n the results section. documented in this encounter Results Urine Microscopic (02/07/2013 9:24 AM NEW HOME SALES CONSULTANT) [facility] Method Time Signature HXUr WBC 4-10 POWERCHART Red Blood Cell 0-2 0 - 2 POWERCHART Clump, Urine HXUr Bacteria Few POWERCHART HXUr Epithelial Occasional POWERCHART Comment: squamous Specimen Anatomical Collection Method Collection Time Receive d Time (Source) Location / / Volume Laterality Urine 02/07/2013 9:24 AM 3 9:24 NEW HOME SALES CONSULTANT AM NEW HOME SALES CONSULTANT Nicki Holt APRN, C.N.P., D.N.P. LAB URINE DESI MONGE Performing Organization Address City/State/ZIP Code Phon e Number POWERCHART Urinalysis, Routine (02/07/2013 9:24 AM NEW HOME SALES CONSULTANT) [facility] Method Time Signature HXUr Color Yellow Yellow POWERCHART Appearance Clear Clear POWERCHART Glucose Negative Negative POWERCHART HXBILIRUBIN Negative Negative POWERCHART Ketones, QL(U) Negative Negative POWERCHART Specific 1.020 1.000 - POWERCHART [place], POCT, U 1.030 pH, POCT, Urine 5.5 5.0 - 8.0 POWERCHART Protein, Ur, Dip Negative Negative POWERCHART Urobilinogen 0.2 POWERCHART HXNITRITE Negative Negative POWERCHART HXBLOOD 1+ Negative POWERCHART Leukocyte 2+ Negative POWERCHART Esterase Source Clean Void POWERCHART Urine Specimen (Source) Anatomical Collection Method Collection Time Re ceived Time Location / / Volume Laterality Urine 02/07/2013 9:24 AM NEW HOME SALES CONSULTANT Nicki Holt APRN C.N.P., D.N.P. LAB URINE ORDE RABLES Performing Organization Address City/State/ZIP Code Phon e Number POWERCHART (ABNORMAL) Thyroid-Stimulating Hormone-Sensitive (s-TSH) (02/07/2013 9:21 AM NEW HOME SALES CONSULTANT) Analysis Performed At Patho logist Time Signature TSH 6.49 (H) 0.30 - 5.00 POWERCHART (Thyrotropin) MCIUML Specimen (Source) Anatomical Collection Method Collection Time Re ceived Time Location / / Volume Laterality Blood 02/07/2013 9:21 AM NEW HOME SALES CONSULTANT Deana Mojica APRN.N.P., D.N.P. LAB BLOOD ADD- ON Performing Organization Address City/State/ZIP Code Phon e Number POWERCHART (ABNORMAL) ALT (Alanine Aminotransferase) (02/07/2013 9:21 AM NEW HOME SALES CONSULTANT) P athologist Signature Alanine 42 (H) 15 - 37 UL POWERCHART Amniotransferas e, LD Specimen (Source) Anatomical Collection Method Collection Time Re ceived Time Location / / Volume Laterality Blood 02/07/2013 9:21 AM NEW HOME SALES CONSULTANT Nicki Holt APRN C.N.P., D.N.P. LAB BLOOD ADD- ON Performing Organization Address City/State/ZIP Code Phon e Number POWERCHART (ABNORMAL) Lipid Panel (02/07/2013 9:21 AM NEW HOME SALES CONSULTANT) P athologist Signature Cholesterol, 160 0 - [...] / Volume Laterality Blood 02/07/2013 9:21 AM NEW HOME SALES CONSULTANT Nicki Holt APRN, C.N.P., D.N.P. LAB BLOOD ADD- ON Performing Organization Address City/State/ZIP Code Phon e Number POWERCHART (ABNORMAL) Hemoglobin A1c (02/07/2013 9:21 AM NEW HOME SALES CONSULTANT) [facility] Time Signature Hemoglobin A1c, 7.46 (H) 4.00 - POWERCHART B 6.00 Specimen (Source) Anatomical Collection Method Collection Time Re ceived Time Location / / Volume Laterality Blood 02/07/2013 9:21 AM NEW HOME SALES CONSULTANT Nicki Holt APRN, C.N.P., D.N.P. LAB BLOOD ADD- ON Performing Organization Address City/State/ZIP Code Phon e Number POWERCHART documented in this encounter Visit Diagnoses Not on filedocumented in this encounter
--- OUTSIDE RECORDS SUMMARY | 2021-10-24 10:32 | XMS_ITS | Encounter Summary ---
:1945 Author Organization [facility] Address [address] [place] [address] Care Team Providers Name Role Phone Unavailable Primary Care Provider Unavailable Encounter Details Date Type Department Care Team Description 09/04/2012 Hospital Encounter H[facility] [place] Gail Garrison M.D. [address] [place] [phone] (Wo rk) Social History Tobacco Use [...] encounter Progress Notes Gail Cortez M.D. - 09/04/2012 10:04 AM CDT [id number] CHIEF COMPLAINT/REASON FOR VISIT Question sinus infection. HISTORY OF PRESENT ILLNESS Lowering is a 67-year-old female who states that for the past 1 to 1 1/2 weeks she has hada head cold with a cough, nasal congestion and has not involved pain in her left cheek. She has had no headache or fevers. She has tried Mucinex and gargling some salt water, but it seems to be gettinga little bit worse. She also reports that [...] Respiratory rate is 16 breaths per minute, blood pressure is 120/66. Oxygen saturation is 98% on room air. PHYSICAL EXAMINATION GENERAL: The patient is alert and oriented, in no acute distress. HEENT: TMs are clear bilaterally. Right nasal mucosa is mildly erythematous. Left nasal mucosa is erythematous and swollen. She has no tenderness over [...] on ciprofloxacin for a potential bladder infection which does not seem to be improving. We did [...] VILLAR MD On: 09/14/2012 09:09 AM Source: [facility] MHSDOLBEYNONRADSYS Document Id: [id number] documented in this encounter Miscellaneous Notes Miscellaneous - Vitaliy Darnell LJairoPJairoN. - 09/06/2012 7:18 PM CDT General Message Document Contains Addenda Addendum by VICKEY HOLT DNP, FNP on 07 September 2012 10:56:37 CDT noted. From: VITALIY DARNLEL LPN To: VICKEY HOLT DNP, FNP; Sent: 09/06/2012 19:18:21 CDT Subject: General Message Spoke Archie regarding MRI results and seeing Ortho. Archie would like to go see Dr Velasco in [place]. She heard is really good. Archie is gone on vacation 09/07/12-. Will set up her appointmentfor the and will leave information on answering maching per her request. Source: [facility] POWERCHART Document Id: [id number] Miscellaneous - Gail Cortez M.D. - 09/04/2012 10:57 AM CDT Ambulatory Patient Summary [id number] [place] [address] Visit Information Name: ARCHIE BAZAN [facility] Number: [id number] Current Date: 09/04/2012 10:57:39 [...] Date Time Location Reason Provider 09/16/2012 08:45 [facility] Family Med FOLLOW UP [facility] 09/23/2012 08:45 [facility] LIFESTYLE [facility] 09/30/2012 09:45 [facility]IF[facility] 10/07/2012 09:45 [facility] 10/14/2012 09:45 [facility] L[facility] Your Goals/Additional instructions: Source: [facility] POWERCHART Document Id: [id number] Miscellaneous - Gail Cortez M.D. - 09/04/2012 10:57 AM CDT Ambulatory Depart Summary [address] [address] Visit Information Name: ELIDASTEVEN ARCHIE MAI [facility] Number: [id number] Visit Date: 09/04/2012 10:57:38 Attending Provider: GAIL VILLAR MD Primary Care Provider: VICKEY HOLT DNP, MINING AND QUARRYING MACHINERY REPAIRER ELIDASTEVENARCHIE has been given the following list [...] your provider for clarification. Additional Information: Source: [facility] POWERCHART Document Id: [id number] Miscellaneous - Vitaliy Darnell L.P.N. - 09/04/2012 10:15 AM CDT Adult Carrot Harvester Intake/History Adult Carrot Harvester Intake/History Entered On: 09/04/2012 10:20 CDT Performed [...] Information Given By : Patient Languages : American VITALIY DARNELL LPN - 09/04/2012 10:15 CDT [...] DARNELL LPN - 09/04/2012 10:15 CDT [facility] Document Id: [id number] CDT!38 documented in this encounter Plan of Treatment Not on filedocumented as of this encounter Visit Diagnoses Not on filedocumented in this encounter
--- OUTSIDE RECORDS SUMMARY | 2021-10-24 10:32 | XMS_ITS | Encounter Summary ---
:1945 Author Organization [facility] Address [address] [place] [address] Care Team Providers Name Role Phone Unavailable Primary Care Provider Unavailable Encounter Details Date Type Department Care Team Description 05/31/2013 Hospital Encounter [facility] [place] Nicki Holt, MAL, C.N.P., D. N.P. [address] [place] [address] (Wo rk) Social History Tobacco [...] D.N.P., C.N.P. - 05/31/2013 11:29 AM CDT [id number] CHIEF COMPLAINT/REASON FOR VISIT Follow up. HISTORY OF PRESENT ILLNESS Patient is a 67-year-old female that presents to the clinic today for her routine wellness examination. She was to have this completed through the Medicare nurse, however she indicates that had made the appointment with me. She otherwise indicates that she is also having a little bit of some neck disco mfort, more so just in the last couple days duration, but feels that she may have strained her neck.She otherwise denies having any further concerns or [...] stretching techniques and following up if her neck strain does not improve. The patient felt very comfortable with this treatment plan. She otherwise denied having any further questions or concerns. The patient ambulated out of the clinic in no acute distress. PATIENT EDUCATION Ready to learn. No apparent learning barriers were identified. Learning preferences include listening. Explained diagnosis and treatment plan. Patient/Child/Caregiver expressed understanding of the content. Corrine LucasNRegina/NereidaN.P/gene Electronically Signed By: NICKI HOLT DNP, FNP On: 05/31/2013 03:52 PM Source: [facility] MHSDOLBEYNONRADSYS Document Id: [id number] documented in this encounter Miscellaneous Notes Miscellaneous - Nicki Holt D.N.P., C.N.P. - 05/31/2013 1:15 PM CDT Ambulatory Patient Summary [id number] [place], [place] [id number] Visit Information Name: ARCHIE BAZAN [facility] Number: [id number] Current Date: 05/31/2013 13:15:18 Physicians Attending Provider: NICKI HOLT DNP, FNP [...] emergency. Electronically Signed By: NICKI HOLT DNP, LARD REFINER Signed On:31-MAY-2013 13:15:08 Your Allergies & Intolerances [...] Date Time Location Reason Provider 06/01/2013 13:00 [facility] Family Med wellness visit [facility] Medicare Nurse Coordinato 06/09/2013 09:00 [facility] Family Med Follow up [facility] Health Machine Tool Operator 06/23/2013 09:00 [facility] Family Med Follow up [facility] Health Machine Tool Operator Attention: Contact your local Clinic if further appointment detail needed. Your Goals/Additional instructions: Source: [facility] POWERCHART Document Id: [id number] Miscellaneous - Nicki Holt, Maritza.N.P., C.N.P. - 05/31/2013 1:15 PM CDT Ambulatory Discharge Medication List [address] [id number] Visit Information Name: ARCHIE BAZAN [facility] Number: [id number] Visit Date: 05/31/2013 13:15:15 Attending [...] FNP Signed On:31-MAY-2013 13:15:08 Additional Information: Source: [facility] POWERCHART Document Id: [id number] Miscellaneous - Diana Cardoza LJairoP.NJairo - 05/31/2013 [...] Adult : None DIANA CARDOZA LPN - 05/31/2013 12:16 CDT Functional Current Daily Living Assistance : None DIANA CARDOZA LPN - 05/31/2013 12:16 CDT Dependent Habits Tobacco Use/Currently Using : No Tobacco Use/Last 12 months : No Tobacco Use/Advised to Quit : No Exposure to Tobacco Smoke : Care provider denies smoking in home Smoking Status : Never smoker DIANA CARDOZA [facility] - 05/31/2013 12:16 CDT Tobacco Use Grid Last Use : Never DIANA CARDOZA LPN - 05/31/2013 12:16 CDT Caffeine Use Grid Caffeine Use : None Frequency : Occasionally DIANA CARDOZA [facility] - 05/31/2013 12:16 CDT Recreational Drug Use Grid Drug Use : None DIANA CARDOZA [facility] - 05/31/2013 12:16 CDT Psychosocial Domestic Abuse Concerns : None DIANA CARDOZA LPN - 05/31/2013 12:16 CDT Advance Directive Advanced Directives : No DIANA CARDOZA LPN - 05/31/2013 12:16 CDT Educ Needs Learning Style Preference Adult Grid Patient : None Family : None DIANA CARDOZA LPN - 05/31/2013 12:16 CDT Source: [facility] POWERCHART Document Id: [id number] CDT!32 Miscellaneous - Diana Cardoza LJairoP.NJairo - 05/31/2013 12:02 PM CDT Adult Mold Changer Intake/History Adult Mold Changer Intake/History Entered On: 05/31/2013 12:09 CDT Performed [...] Body Mass Index : 31.93 kg/m2 DIANA ACRDOZA LPN - 05/31/2013 12:02 CDT General Info Information Given By : Patient Languages : Wolof DIANA CARDOZA LPN - 05/31/2013 12:02 CDT [...] : Never DIANA CARDOZA LPN - 05/31/2013 12:02 CDT Alcohol Use : No DIANA CARDOZA LPN - 05/31/2013 12:02 CDT Caffeine Use Grid Caffeine Use : None Frequency : Occasionally DIANA CARDOZA LPN - 05/31/2013 12:02 CDT Recreational Drug Use Grid Drug Use : None DIANA CARDOZA LPN - 05/31/2013 12:02 CDT Source: [facility] POWERCHART Document Id: [id number] CDT!36 documented in this encounter Plan of Treatment Not on filedocumented as of this encounter Visit Diagnoses Not on filedocumented in this encounter
--- OUTSIDE RECORDS SUMMARY | 2021-10-24 10:32 | XMS_ITS | Encounter Summary ---
:1945 Author Organization [facility] Address [address] [place] [address] Care Team Providers Name Role Phone Unavailable Primary Care Provider Unavailable Encounter Details Date Type Department Care Team Description 12/16/2012 Hospital Encounter HX [facility] Nicki Anthony, MAL, C.N.P., D. N.P. [address] [place] [address] (Wo rk) Social History Tobacco [...] Provider Ser - 12/16/2012 8:55 AM CDT [id number] HEALTH & WELLNESS COACHING Patient was seen at [facility] in [place] on 12/16/2012 for a follow-up wellnesscoaching visit around the area of diabetes/stress management. CHIEF COMPLAINT/REASON FOR VISIT Follow-up wellness coaching visit. OBJECTIVE INFORMATION/SESSION OVERVIEW Today Marcial visited me after receiving her shoulder surgery in the last few weeks. She reports thather overall energy level has been down and mood has been a little bit down in nature as well. She reports that on her scale she has been up 5 pounds which she is not happy about and attributes this to boredom and stress and anxiety eating. 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 She discussed that she would like to start off with a regular walking routinein addition to increasing her water intake and planning her meals once again. 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 FOLLOWUP PLAN We will continue to see every 2 weeks moving forward towards her goals. Annie Pérez/arnol cc: Nicki Anthony D.N.P./NereidaN.P Electronically Signed By: ANNIE PÉREZ On: 12/17/2012 10:19 AM Source: [facility] MHSDOLBEYNONRADSYS Document Id: [id number] documented in this encounter Plan of Treatment Not on filedocumented as of this encounter Visit Diagnoses Not on filedocumented in this encounter
--- OUTSIDE RECORDS SUMMARY | 2021-10-24 10:32 | XMS_ITS | Encounter Summary ---
:1945 Author Organization [facility] Address [address] [place] [address] Care Team Providers Name Role Phone Unavailable Primary Care Provider Unavailable Encounter Details Date Type Department Care Team Description 08/31/2012 Hospital Encounter HX NO MAPPING Nicki Anthony, MAL, C.N.P., D.N.P. [address] [place], [place] [phone] (Wo rk) Social History [...]
--- OUTSIDE RECORDS SUMMARY | 2021-10-24 10:32 | XMS_ITS | Encounter Summary ---
:1945 Author Organization [facility] Address [address] [place] [address] Care Team Providers Name Role Phone Unavailable Primary Care Provider Unavailable Encounter Details Date Type Department Care Team Description 01/27/2013 Hospital Encounter H[facility] Nicki Holt, MAL, C.N.P., D. N.P. [address] [place] [address] (Wo rk) Social History Tobacco [...] Provider Ser - 01/27/2013 2:16 PM CST [id number] HEALTH AND WELLNESS COACHING Patient was seen at [facility] in [place] on 01/27/2013 for followup wellness coaching visit [...] her start doing work with them as soon as possible looking at a 2 to 3 week PT time and will also be working with her himself. She is hopeful and excited that this may be helpful in some of the movement and giving her more movement and mobility and lessening the pain in her shoulder since the surgery. We also talked about her goals. She was successful this week creating a menu plan for scheduled eating that helped her to avoid making unhealthy choices or falling into sugary or processed sweets or carb snacks. She also has been approachingthe all or nothing approach and noticing when she has that thought that she can allow herself just asmall snack or drink a little bit of water or exercise when she thinks she is hungry versus bored orstressed. She feels like she has been successful over the last week and would like to continue on with the menu planning and meeting weekly to get back up on a regular routine again. She also shared that her blood sugar numbers have been lower and she is pleased with that and feels that it is a differentiation due to her changing her diet and eating more healthy vegetables and proteins and cutting out a lot of the sugars and starches. She also found a new kind of chip that she found enjoyable that also has lower sodium and does not have a high carb level. So she is finding other alternate strategies in her life and ways that she can manage her health and be proactive moving forward. In addition, she did get a massage and has been working on relieving stress and anxiety in her life as well. FOLLOWUP PLAN We will continue to see every week moving forward towards the holiday season as she works toward stepping back into her wellness routine. Annie Pérez/[facility] Electronically Signed By: ANNIE PÉREZ On: 02/01/2013 01:47 PM Source: [facility] MHSDOLBEYNONRADSYS Document Id: [id number] documented in this encounter Miscellaneous Notes Miscellaneous - Nicki Holt D.N.P., C.N.P. - 02/11/2013 4:13 PM ENERGY PROJECTS LEAD Results Notification Document Contains Addenda Addendum by NICKI HOLT DNP, FNP on 15 February 2013 15:56:41 ENERGY PROJECTS LEAD noted Addendum by VITALIY VILLEDA LPN on 15 February 2013 09:25:17 ENERGY PROJECTS LEAD From: VITALIY VILLEDA LPN To: NICKI HOLT DNP, FNP; Sent: 02/15/2013 09:25:17 ENERGY PROJECTS LEAD Show up: 02/15/2013 09:24:00 ENERGY PROJECTS LEAD Subject: RE: Results Notification Spoke with Marcial, states, feeling better, not quit so tired. Still see's blood in urine off/on. Encouraged patient to make f/u appt with Nicki in 6-8wks. States, okay Addendum by VITALIY VILLEDA LPN on 14 February 2013 14:48:07 ENERGY PROJECTS LEAD Left message to return call. From: NICKI HOLT DNP, FNP To: VITALIY VILLEDA LPN; Sent: 02/11/2013 16:13:23 ENERGY PROJECTS LEAD ! Show up: 02/11/2013 22:13:23 [facility] Subject: Results Notification Actions: Notify patient of results Reminder Comments: please call pt. with results, contaminated specimen. thank you. Results: Date Result Type Ind Result Name MBO Review Culture Urine Source: [facility] Document Id: [id number] Electronically signed by Conversion, [facility] Tennis Professional [id number] at 07/16/2016 3:10 PM CDT documented in this encounter Plan of Treatment Not on filedocumented as of this encounter Procedures Procedure Name Priority Date/Time Associated Diagnosis Comme nts BACTERIAL CULTURE, Routine 02/07/2013 10:00 AM Re sults for this AEROBIC, URINE ENERGY PROJECTS LEAD procedure are in the results section. documented in this encounter Results Bacterial Culture, Aerobic, Urine (02/07/2013 10:00 AM ENERGY PROJECTS LEAD) Patholo gist Method Time Signature Bacterial POWERCHART Culture, Aerobic, Urine HXPre No growth at 1 POWERCHART day. HXPre Continuing POWERCHART incubation HXPre GNR POWERCHART Comment: >100,000 cfu/mL Gram Negative Rods Identification and susceptibility to fol low. HXPre No growth at 1 day. POWERCHART HXPre Laboratory Error. [facility] 02/08/2013 14:09:15 POWERCHART HXPre (*) Gram Negative Rods reported previously has been POWERCHART removed from the report. HXPre (*) Previous positive report issued in error. Error due to POWERCHART Laboratory Error. [facility] 02/08/2013 14:09:38. HXFinal >3 organisms present - probable contamination, suggest POWERCHART repeat culture. HXFinal No further work-up. POWERCHART HXFinal (*) Gram Negative Rods reported previously has been POWERCHART removed from the report. HXFinal (*) Previous positive report issued in error. Error due to POWERCHART Laboratory Error. [facility] 02/08/2013 14:09:38. Specimen (Source) Anatomical Collection Method Collection Time Re ceived Time Location / / Volume Laterality Urine, Clean 02/07/2013 10:00 Catch AM ENERGY PROJECTS LEAD Nicki Holt APRN, C.N.P., D.N.P. LAB MICROBIOLO GY - GENERAL ORDERABLES Performing Organization Address City/State/ZIP Code Phon e Number POWERCHART documented in this encounter Visit Diagnoses Not on filedocumented in this encounter
--- OUTSIDE RECORDS SUMMARY | 2021-10-24 10:32 | XMS_ITS | Encounter Summary ---
:1945 Author Organization [facility] Address [address] [place] [address] Care Team Providers Name Role Phone Unavailable Primary Care Provider Unavailable Encounter Details Date Type Department Care Team Description 05/04/[address] [facility] Asha Ramon, MAL, C.N.P., D. N.P. [address] [place], [place] [phone] (Wo rk) Social History [...]
--- OUTSIDE RECORDS SUMMARY | 2021-10-24 10:32 | XMS_ITS | Encounter Summary ---
:1945 Author Organization [facility] Address [address] [place] [address] Care Team Providers Name Role Phone Unavailable Primary Care Provider Unavailable Encounter Details Date Type Department Care Team Description 09/14/2012 Hospital Encounter HX [facility] Nicki Holt, MAL, C.N.P., D. N.P. [address] [place] [address] (Wo rk) Social History Tobacco [...] by mouth daily. Take 0 with food [employer] [facility]. documented as of this encounter Progress Notes Conversion, Historical Provider Ser - 09/14/2012 9:49 AM CDT [id number] CHIEF COMPLAINT/REASON FOR VISIT Patient was seen [...] energy level has increased with doing so. Toya was successful in getting her new treadmill from [place] and is all set up and prepared for winter or humid days. She has also been incorporating cranberry juice as she feels that she may have aUTI. IMPRESSION/REPORT/PLAN New goals set: wants to continue with the 1.5-pound weight loss goal for weekly and continue to moveforward in doing her healthy goal planning as far as portion size and healthy portions. Goal #3 would be to continue on with low sugar and processed foods for the next 1 to 2 weeks and continue to meetongoing. PLAN: Will continue to meet every week to 2 weeks moving forward towards her diabetes and wellness goals. Annie Pérez/felix Electronically Signed By: ANNIE PÉREZ On: 10/12/2012 02:34 PM Source: [facility] MHSDOLBEYNONRADSYS Document Id: [id number] documented in this encounter Miscellaneous Notes Miscellaneous - Diana Cardoza LJairoP.N. - 09/16/2012 2:41 PM CDT General Message [...] DIANA CARDOZA LPN To: NICKI HOLT DNP, FNP; Sent: 09/16/2012 14:41:57 CDT Subject: General Message [...] other suggestions I would call her back. [phone] Source: [facility] POWERCHART Document Id: [id number] Electronically signed by Conversion, [facility] Sugar Controller [id number] at 07/16/2016 10:11 AM CDT documented in this encounter Plan of Treatment Not on filedocumented as of this encounter Visit Diagnoses Not on filedocumented in this encounter
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
--- OUTSIDE RECORDS SUMMARY | 2021-10-24 10:32 | XMS_ITS | Encounter Summary ---
:1945 Author Organization [facility] Address [address] [place] [address] Care Team Providers Name Role Phone Unavailable Primary Care Provider Unavailable Encounter Details Date Type Department Care Team Description 09/02/2012 Hospital Encounter HX [facility] Nicki Anthony, MAL, C.N.P., D.N.P. [address], [place] [phone] (Wo rk) Social History [...] by mouth daily. Take 0 with food [employer]. documented as of this encounter Plan of Treatment Not on filedocumented as of this encounter Procedures Procedure Name Priority Date/Time Associated Comments Diagnosis URINALYSIS, ROUTINE Routine 09/02/2012 9:53 AM Re sults for this CDT procedure are i n the results section. URINE MICROSCOPIC Routine 09/02/2012 9:53 AM Resu lts for this CDT procedure are i n the results section. documented in this encounter Results Urine Microscopic (09/02/2012 9:53 AM CDT) [facility] Method Time Signature HXUr WBC 5-10 [...] / Volume Laterality Urine 09/02/2012 9:53 AM 3 9:53 CDT AM CDT Sharon Montes N.P. LAB URINE ORDERABLES Performing Organization Address [facility] Phon e Number POWERCHART Urinalysis, Routine (09/02/2012 9:53 AM CDT) [facility] gist Method Time Signature HXUr Color Yellow Yellow POWERCHART Appearance Clear Clear POWERCHART Glucose Negative Negative POWERCHART HXBILIRUBIN Negative Negative POWERCHART Ketones, QL(U) Negative Negative POWERCHART Specific 1.020 1.000 - POWERCHART Doran, POCT, U 1.030 pH, POCT, Urine 5.5 [...] N.P. LAB URINE ORDERABLES Performing Organization Address [facility] Phon e Number POWERCHART documented in this encounter Visit Diagnoses Not on filedocumented in this encounter
--- OUTSIDE RECORDS SUMMARY | 2021-10-24 10:32 | XMS_ITS | Encounter Summary ---
:1945 Author Organization [facility] Address [address] [place] [address] Care Team Providers Name Role Phone Unavailable Primary Care Provider Unavailable Encounter Details Date Type Department Care Team Description 02/24/2013 Hospital Encounter HX [facility] Nicki Sosa, MAL, C.N.P., D. N.P. [address] [place] [address] (Wo rk) Social History Tobacco [...] Provider Ser - 02/24/2013 10:26 AM CST [id number] HEALTH & WELLNESS COACHING Referring Physician Maritza Lucas.N.P./NereidaN.P Patient was seen in [facility] on 02/24/2013 for follow-up wellness coaching visit [...] was not going to put on medication but does want her to continue on to eat healthy and take care of herself. She is very motivated to getting back into a healthy routine again as she has been encountering a little bit of struggle with her healing of her shoulder which she had surgery on. She did see her surgeon and is going to see him in about 2 months to check in and she is going to continue on with doing physical therapy strengthening exercises every day. NEW GOALS SET: Goal #1: Menu planning. We will continue to plan out her menu for the week in making healthy optionsand set up snacks and forecast any kind of possible obstacles that would get in the way of her losing weight and eating healthy. FOLLOWUP PLAN We will see next week and continue to move forward. Annie Pérez/rodrick Electronically Signed By: ANNIE PÉREZ On: 02/25/2013 11:07 AM Source: [facility] MHSDOLBEYNSRINIVASASYSuzy Document Id: [id number] documented in this encounter Plan of Treatment Not on filedocumented as of this encounter Visit Diagnoses Not on filedocumented in this encounter
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
--- OUTSIDE RECORDS SUMMARY | 2021-10-24 10:32 | XMS_ITS | Encounter Summary ---
:1945 Author Organization [facility] Address [address] [place] [address] Care Team Providers Name Role Phone Unavailable Primary Care Provider Unavailable Encounter Details Date Type Department Care Team Description 12/30/2012 Hospital Encounter HX [facility] Nicki Anthony, MAL, C.N.P., D. N.P. [address] [place] [address] (Wo rk) Social History Tobacco [...] Provider Ser - 12/30/2012 9:11 AM CST [id number] HEALTH & WELLNESS COACHING Patient was seen at [facility] in [place] on 12/30/2012 for follow-up wellness coaching visit [...] in the afternoons due to boredom and not knowing what to do as she does not have a lot of mobility with her shoulder since her shoulder is in a sling due to her shoulder surgery. She [...] apple and almond butter, nuts or yogurt, Stateless yogurt especially. She would like to a [...] and only been able to lay on her left side. She is also going to look [...] this is a healthy thing as her body is still healing and for her to take [...] ANNIE MIRAMONTES On: 01/04/2013 10:03 AM Source: [facility] MHSUSANA Document Id: [id number] documented in this encounter Plan of Treatment Not on filedocumented as of this encounter Visit Diagnoses Not on filedocumented in this encounter
--- OUTSIDE RECORDS SUMMARY | 2021-10-24 10:32 | XMS_ITS | Encounter Summary ---
:1945 Author Organization [facility] Address [address] [place] [address] Care Team Providers Name Role Phone Unavailable Primary Care Provider Unavailable Encounter Details Date Type Department Care Team Description 10/21/2012 Hospital Encounter HX [facility] Nicki Sosa, MAL, C.N.P., D. N.P. [address] [place] [address] (Wo rk) Social History Tobacco [...] Provider Ser - 10/21/2012 9:05 AM CDT [id number] HEALTH & WELLNESS COACHING VISIT Referring Physician Maritza Lucas.N.P./F.N.P Patient was seen in [facility] for follow-up wellness coaching visit [...] doing so on a regular basis. She alsoreports doing a few walks and while at the cabin and also got in a walk yesterday as well. She feelsthat when she does her relaxation activities and CDs that she often times will fall asleep. We discus sed that this is actually a successful thing to do and for her to fall asleep while doing relaxationtherapy is quite alright and actually encouraged. She [...] ANNIE PÉREZ On: 10/28/2012 05:03 PM Source: [facility] MHSDOLBEYNONRADSYS Document Id: [id number] documented in this encounter Plan of Treatment Not on filedocumented as of this encounter Visit Diagnoses Not on filedocumented in this encounter
--- OUTSIDE RECORDS SUMMARY | 2021-10-24 10:32 | XMS_ITS | Encounter Summary ---
:1945 Author Organization [facility] Address [address] [place] [address] Care Team Providers Name Role Phone Unavailable Primary Care Provider Unavailable Encounter Details Date Type Department Care Team Description 11/16/2012 Hospital Encounter HX [facility] Vickey Holt, MAL, C.N.P., D. N.P. [address] [place] [address] (Wo rk) Social History Tobacco [...] D.N.P., C.N.P. - 11/16/2012 8:36 AM CDT [id number] CHIEF COMPLAINT/REASON FOR VISIT Preoperative physical examination. HISTORY OF PRESENT ILLNESS The patient is a 67-year-old female who presents to the clinic today for a routine preoperative examination for right shoulder rotator cuff repair that she is going to be undergoing on 11/23/[address] Velasco [facility] [place]. She otherwise indicates that she is doing [...] and reactive to light and accommodation OROPHARYNX: [place] and moist. TMs: Bilateral tympanic membranes are [...] 4 quadrants. No hepatosplenomegaly is noted. No rebound tenderness, guarding, or rigidity is noted. VITAL SIGNS Temperature 36 degrees centigrade. Pulse 68 beats per minute. Respirations 16 per minute. Oxygen saturation is 97% room air. Height 162.3 cm. Weight 81.1 kg. BMI 30.79 kg per meter squared. DIAGNOSTICS: 1. ECG was obtained in which normal sinus rhythm was noted with a ventricular rate 66 beats per minute, PA interval 142 ms, QRS duration 82 ms, and QT 416 ms.\ 2. Obstructive sleep apnea risk score noted to be a total of 2 with a neck circumference at 38 cm. LABORATORY: WBC 7.4. Hemoglobin 12.0. Lymphocyte 17%. Differential is otherwise completely unremarkable. Sodium 139. Potassium 4.7. Creatinine 0.89. GFR greater than 60. Blood sugar 158. AST 20. ALT 17(previous hemoglobin A1c on 10/21/2012 noted to be [...] blockade therapy. There are no pulmonary, DVT, deliriumpre- or postoperative management that is required. Presently at this time the patient's diabetes is being controlled through diet with fairly adequately controlled blood sugars. I do not expect any pre- or postoperative management will be required for her type 2 diabetes mellitus. I recommend that kcgmxfm-uwz-bosmzpr medication be discontinued 1 week prior to surgery. These overall findings were discussed at length with the patient. The patient stated understanding the plan as she otherwise denied having any further questions or concerns. The patient ambulated out of the clinic in no acute distress. Patient Education Ready to learn No apparent learning barriers were identified Learning preferences include listening Explained diagnosis and treatment plan Patient/Child/Caregiver expressed understanding of the content Verena Lucas.P./F.N.P/hlc Electronically Signed By: VICKEY HOLT DNP, FNP On: 11/16/2012 11:01 AM Source: [facility] MHSDOLBEYNONRADSYS Document Id: [id number] documented in this encounter Miscellaneous Notes Miscellaneous - Vickey Holt D.N.P., C.N.P. - 11/16/2012 10:11 AM CDT Ambulatory Depart Summary [address] [address] Visit Information Name: ELIDASTEVEN MARCIAL MAI [facility] Number: [id number] Visit Date: 11/16/2012 10:11:07 Attending Provider: VICKEY HOLT DNP, FNP Primary Care Provider: VICKEY HOLT DNP, FNP BENI MARCIAL PAU has been given the following list [...] your provider for clarification. Additional Information: Source: [facility] POWERCHART Document Id: [id number] Miscellaneous - Vickey Holt D.N.P., C.N.P. - 11/16/2012 10:11 AM CDT Ambulatory Patient Summary [id number] [place] [address] Visit Information Name: MARCIAL BAZAN [facility] Number: [id number] Current Date: 11/16/2012 10:11:08 Physicians [...] Date Time Location Reason Provider 11/18/2012 09:15 [facility] F/U - HEALTH ENGINE REPAIR SUPERVISOR [facility] Health Commercial Decorator Your Goals/Additional instructions: Source: [facility] POWERCHART Document Id: [id number] Miscellaneous - Vickey Holt, Maritza.N.P., C.N.P. - 11/16/2012 9:04 AM CDT Normal Results Letter 16 November 2012 MARCIAL BAZAN [address] [place] [phone] Dear MARCIAL BAZAN, I am pleased to [...] (%) (L) 17.0 11/16/2012 23.0 - 44.0 Mcleod % (%) 5.9 11/16/2012 2.0 - 18.0 Eos % (%) 2.0 11/16/2012 1.0 - 5.0 Baso % (%) 0.5 11/16/2012 0.0 - 1.0 Neutro Absolute (10(9)/L) 5.52 11/16/2012 1.70 - 7.00 Lymph Absolute (x10(9)/L) 1.26 11/16/2012 0.90 - 2.90 Mcleod Absolute (x10(9)/L) 0.44 11/16/2012 0.30 - 0.90 Eos Absolute (x10(9)/L) 0.15 11/16/2012 0.05 - 0.50 Baso Absolute (x10(9)/L) 0.04 11/16/2012 0.00 - 0.30 Differential? Auto 11/16/2012 Sincerely, VICKEY HOLT [address] [place] [address] Electronic Signature Electronically Signed By: VICKEY HOLT DNP, [employer] COACH On: 16 November 2012 This document has images extracted. Source: [facility] POWERCHART Document Id: [id number] Electronically signed by Sae [facility] [employer] [employer] [id number] at 07/16/2016 7:03 PM CDT Miscellaneous - Sylvia Darnell, L.P.N. - 11/16/2012 8:50 AM CDT Adult Die Sinker Intake/History Adult Die Sinker Intake/History Entered On: 11/16/2012 8:57 CDT Performed On: 11/16/2012 8:50 CDT by SYLVIA DARNELL PHYSICAL SCIENCES PROFESSOR Intake Chief Complaint : Pre-op for right [...] Given By : Patient Languages : Scottish SYLVIA DARNELL LPN - 11/16/2012 8:50 CDT [...] DARNELL LPN - 11/16/2012 8:50 CDT Source: [facility] POWERCHART Document Id: [id number] CDT!39 Miscellaneous - Sylvia Darnell L.P.N. - 11/16/2012 8:50 AM CDT Obstructive Sleep Apnea Obstructive Sleep Apnea Entered On: 11/16/2012 8:58 CDT Performed On: 11/16/2012 8:50 CDT by SYLVIA DARNELL LPN JUAN Screening Known Obstructive Sleep Apnea : No - NOT diagnosed with JUAN ASCENCIOALEJANDRO Anderson PHYSICAL SCIENCES PROFESSOR - 11/16/2012 8:50 CDT JUAN Assessment Do [...] Clinical Score Calc : 2 SYLVIA DARNELL PHYSICAL SCIENCES PROFESSOR - 11/16/2012 8:50 CDT Source: [facility] POWERCHART Document Id: [id number] CDT!10 documented in this encounter Plan of Treatment Not on filedocumented as of this encounter Procedures Procedure Name Priority Date/Time Associated Comments Diagnosis AUTOMATED Routine 11/16/2012 8:49 AM Results f or this DIFFERENTIAL, B CDT procedure ar e in the results section. CBC WITH DIFFERENTIAL, Routine 11/16/2012 8:49 AM Results for this B CDT procedure are i n the results section. COMPREHENSIVE Routine 11/16/2012 8:49 AM Results for this METABOLIC PANEL, S/P CDT procedu re are in the results section. documented in this encounter Results (ABNORMAL) Automated Differential (11/16/2012 8:49 AM CDT) [facility] gist Method Time Signature Neutro % 74.6 42.0 - POWERCHART 77.0 Lymphocytes % 17.0 (L) 23.0 - POWERCHART 44.0 HX Mcleod % 5.9 2.0 - 18.0 POWERCHART HX [...] / Volume Laterality Blood 11/16/2012 8:49 AM 3 8:49 CDT AM CDT Vickey Justin Holt APRN C.N.P., D.N.P. LAB BLOOD ADD- ON Performing Organization Address City/State/ZIP Code Phon e Number POWERCHART CBC with Differential (11/16/2012 8:49 AM CDT) P athologist Signature Leukocytes 7.4 3.4 - 10.5 POWERCHART [id number] Erythrocytes 4.07 3.90 - POWERCHART 5.03 [id number] Hemoglobin 12.0 12.0 - POWERCHART 15.5 GDL Hematocrit 37.2 34.9 - POWERCHART 44.5 MCV 91.4 82.0 - POWERCHART 98.0 FL HX RDW 13.1 11.9 - POWERCHART 15.5 Platelet Count 178 150 - 450 POWERCHART X109L HXDifferential? Auto POWERCHART Specimen (Source) Anatomical Collection Method Collection Time Re ceived Time Location / / Volume Laterality Blood 11/16/2012 8:49 AM CDT Vickey L Raj RESENDEZ, C.N.P., D.N.P. LAB BLOOD ADD- ON Performing [...] Total 27.9 23.0 - POWERCHART 29.0 MMOLL Creatinine 0.89 0.60 - POWERCHART 1.30 MGDL Total Protein, S 7.4 6.3 - 7.9 POWERCHART GDL Glucose 158 (H) 70 - 139 POWERCHART MGDL Calcium, Total, S 9.5 8.8 - POWERCHART 10.2 MGDL Sodium, S 139.0 135.0 - POWERCHART 145.0 MML Potassium, S 4.7 3.6 - 4.8 POWERCHART MMOLL Albumin, S 4.0 3.5 - 5.0 POWERCHART GDL HXeGFR (MDRD) >60 >=60 POWERCHART [id number] 2 eGFR Black/ >60 >=60 POWERCHART [place] [id number] Specimen (Source) Anatomical Collection Method Collection Time Re ceived Time Location / / Volume Laterality Blood 11/16/2012 8:49 AM CDT Vickey Holt APRN, C.N.P., D.N.P. LAB BLOOD ADD- ON Performing Organization Address City/State/ZIP Code Phon e Number POWERCHART documented in this encounter Visit Diagnoses Not on filedocumented in this encounter
--- OUTSIDE RECORDS SUMMARY | 2021-10-24 10:32 | XMS_ITS | Encounter Summary ---
:1945 Author Organization [facility] Address [address] [place] [address] Care Team Providers Name Role Phone Unavailable Primary Care Provider Unavailable Encounter Details Date Type Department Care Team Description 11/18/2012 Hospital Encounter HX [facility] Nicki Anthony, MAL, C.N.P., D. N.P. [address] [place] [address] (Wo rk) Social History Tobacco [...] Provider Ser - 11/18/2012 9:20 AM CDT [id number] HEALTH AND WELLNESS COACHING Patient was seen at [facility] in [place] for follow-up wellness coaching visit on 11/18/2012 [...] other friends and family members as she feelsthat is the right thing at the right time for her at this time. She will be having surgery next Thursday to correct a rotator cuff issue with her shoulder and will enter into a therapy and PT program after that. The doctor suggested it is a full year for 100% recovery, and she is looking forward to being able to have full use of her shoulder again. She has been preparing over the last week with buyingfruits, vegetables, and yogurt, also stocking up on healthy choices and making things for her to eat so she can really take care of herself during her recovery time. She also has a long list ofthings that she is doing around the house to prepare like washing windows and getting things set up.She also is going to implement a strategy of watching her portion size as she recovers. She is goingto make sure to use food on a [...] for her during her recovery time. Annie Pérez/[facility] Electronically Signed By: ANNIE PÉREZ On: 11/23/2012 03:53 PM Source: [facility] MHSDOLBEYNONRADSYS Document Id: [id number] documented in this encounter Plan of Treatment Not on filedocumented as of this encounter Visit Diagnoses Not on filedocumented in this encounter
--- OUTSIDE RECORDS SUMMARY | 2021-10-24 10:32 | XMS_ITS | Encounter Summary ---
:1945 Author Organization [facility] Address [address] [place] [address] Care Team Providers Name Role Phone Unavailable Primary Care Provider Unavailable Encounter Details Date Type Department Care Team Description 10/21/2012 Hospital Encounter HX [facility] Nicki Holt, MAL, C.N.P., D.N.P. [address], [place] [phone] (Wo rk) Social History [...] by mouth daily. Take 0 with food compareit4me. documented as of this encounter Miscellaneous Notes Miscellaneous - Nicki Holt, Maritza.N.P., C.N.P. - 10/29/2012 9:13 AM CDT Results Notification Document Contains Addenda Addendum by PETRA RUSSELL LPN on 29 October 2012 15:36:24 CDT Patient called and updated she will follow new orders in medications and labs she reports that she has no concerns with bladder at this time From: NICKI HOLT DNP, SOLDERER BARREL RIBS To: DIANA RYAN Justin DOWNSTREAM BIOMANUFACTURING TECHNICIAN; Sent: 10/29/2012 09:13:44 CDT ! Show up: 10/29/2012 14:13:44 [facility] Subject: Results Notification Actions: Note to [...] (H) 5.55 mcIU/mL (0.30 - 5.00) Source: [facility] POWERCHART Document Id: [id number] Miscellaneous - Nicki Holt, D.N.P., C.N.P. - 10/21/2012 9:58 AM CDT Normal Results Letter 21 October 2012 ARCHIE BAZAN [address] [place] [id number] Dear ARCHIE BAZAN, Result Name Current Result [...] 4.00 - 6.00 Sincerely, NICKI HOLT [address] [place] [address] Electronic Signature Electronically Signed By: NICKI HOLT DNP, FNP On: 21 October 2012 This document has images extracted. Source: [facility] POWERCHART Document Id: [id number] documented in this encounter Plan of Treatment Not on filedocumented as of this encounter Procedures Procedure Name Priority Date/Time Associated Comments Diagnosis BACTERIAL CULTURE, Routine 10/21/2012 9:12 AM Res ults for this AEROBIC, URINE CDT procedure are in the results section. HXUR % DYSMORPHIC RBC Routine 10/21/2012 9:12 AM Results for this CDT procedure are i n the results section. URINALYSIS, ROUTINE Routine 10/21/2012 9:12 AM Re sults for this CDT procedure are i n the results section. URINE MICROSCOPIC Routine 10/21/2012 9:12 AM Resu lts for this CDT procedure are i n the results section. LIPID PANEL, S Routine 10/21/2012 9:06 AM Results for this CDT procedure are i n the results section. THYROID-STIMULATING Routine 10/21/2012 9:06 AM Re sults for this HORMONE-SENSITIVE CDT procedure are in (S-TSH) the results section. HEMOGLOBIN A1C, B Routine 10/21/2012 9:06 AM Resu lts for this CDT procedure are i n the results section. documented in this encounter Results Bacterial Culture, Aerobic, Urine (10/21/2012 9:12 AM CDT) [facility] gist Method Time Signature Bacterial POWERCHART Culture, Aerobic, Urine HXPre <10,000 cfu/mL POWERCHART Mixed ismael (multiple species present) Continuing incubation HXFinal >100,000 POWERCHART cfu/mL Mixed ismael (multiple species present) HXFinal No further POWERCHART work-up. Specimen (Source) Anatomical Collection Method Collection Time Re ceived Time Location / / Volume Laterality Micro Spec 10/21/2012 9:12 AM CDT Nicki Holt OIL RAG WASHER, C.N.P., D.N.P. LAB MICROBIOLO GY - GENERAL ORDERABLES Performing Organization Address City/[facility] Code Phon e Number POWERCHART HXUR % DYSMORPHIC RBC (10/21/2012 9:12 AM CDT) athologist Signature Dysmorphic RBC <=25 <=25 POWERCHART Specimen Anatomical Collection Method Collection Time Receive d Time (Source) Location / / Volume Laterality Urine 10/21/2012 9:12 AM 3 9:12 CDT AM CDT Nicki Holt APRN, C.N.PJairo, D.N.P. LAB HISTORICAL ORDERS Performing Organization Address City/[facility]/ZIP Code Phon e Number POWERCHART Urine Microscopic (10/21/2012 9:12 AM CDT) athologist Signature HXUr WBC 51-100 POWERCHART Red Blood Cell 3-10 0 - 2 POWERCHART Clump, Urine HXUr Bacteria Few POWERCHART HXUr Epithelial Many POWERCHART Comment: Many Squamous Few Transitional and Renal Tubular. Specimen Anatomical Collection Method Collection Time Receive d Time (Source) Location / / Volume Laterality Urine 10/21/2012 9:12 AM 3 9:12 CDT AM CDT Nicki Holt APRN, C.N.P., D.N.P. LAB URINE ORDE RABLES Performing Organization Address City/[facility] Code Phon e Number POWERCHART Urinalysis, Routine (10/21/2012 9:12 AM CDT) athologist Signature HXUr Color Yellow Yellow POWERCHART Appearance Clear Clear POWERCHART Glucose Negative Negative POWERCHART HXBILIRUBIN 1+ Negative POWERCHART Comment: neg per visual exam 10/21/2012 09:30:58 CDT [id number] Ketones, QL(U) Negative Negative POWERCHART Specific [place], POCT, U 1.025 1.000 - 1.030 POWERCHART pH, POCT, Urine 5.5 5.0 - 8.0 POWERCHART Protein, Ur, Dip Negative Negative POWERCHART Urobilinogen 0.2 POWERCHART HXNITRITE Negative Negative POWERCHART HXBLOOD Trace-intact Negative POWERCHART Leukocyte Esterase 2+ Negative POWERCHART Specimen (Source) Anatomical Collection Method Collection Time Re ceived Time Location / / Volume Laterality Urine 10/21/2012 9:12 AM CDT Deana Mojica APRN.N.P., D.N.P. LAB URINE TEOE RABCHRISTOPHER Performing Organization Address City/State/ZIP Code Phon e Number POWERCHART (ABNORMAL) Hemoglobin A1c (10/21/2012 9:06 AM CDT) Analysis Performed At [facility] Time Signature Hemoglobin A1c, 6.46 (H) 4.00 - POWERCHART B 6.00 Specimen (Source) Anatomical Collection Method Collection Time Re ceived Time Location / / Volume Laterality Blood 10/21/2012 9:06 AM CDT Deana Mojica APRN.N.P., D.N.P. LAB BLOOD ADD- ON Performing Organization Address City/[facility] Code Phon e Number POWERCHART [...] LAB BLOOD ADD- ON Performing Organization Address City/[facility]/ZIP Code Phon e Number POWERCHART (ABNORMAL) Thyroid-Stimulating Hormone-Sensitive (s-TSH) (10/21/2012 9:06 AM CDT) Analysis Performed At [facility] Time Signature TSH 5.55 (H) 0.30 - [...]
--- OUTSIDE RECORDS SUMMARY | 2021-10-24 10:32 | XMS_ITS | Encounter Summary ---
:1945 Author Organization [facility] Address [address] [place] [address] Care Team Providers Name Role Phone Unavailable Primary Care Provider Unavailable Encounter Details Date Type Department Care Team Description 11/04/2012 Hospital Encounter HX [facility] Nicki Anthony, MAL, C.N.P., D. N.P. [address] [place] [address] (Wo rk) Social History Tobacco [...] Provider Ser - 11/04/2012 8:47 AM CDT [id number] HEALTH & WELLNESS COACHING Referring Physician Nicki Anthony D.N.P./Elmer. Patient was seen in [facility] for follow-up wellness coaching visit around the area of Diabetes management and weight loss the date of 11/04/2012. CHIEF COMPLAINT/REASON FOR VISIT Follow-up wellness coaching visit. OBJECTIVE INFORMATION Her weight is at 81.5 kg which is 179.3 pounds. This is a weight increase of 2.2 pounds since our last session. SESSION OVERVIEW Marcail reports feeling very hungry this week and [...] daily relaxation a minimum of 3-times a weekand ideally would be doing breath work and sitting and relaxing at least 5 minutes daily. FOLLOW-UP PLAN We will continue to see every 2 weeks for 30 minutes. Annie Pérez/rodrick Electronically Signed By: ANNIE PÉREZ On: 11/09/2012 12:47 PM Source: [facility] MHSDOLBEYNONRADSYS Document Id: [id number] documented in this encounter Miscellaneous Notes Miscellaneous - Diana Cardoza L.P.N. - 11/04/2012 5:06 PM CDT Ambulatory Vitals Height Weight Ambulatory Vitals Height Weight Entered On: 11/09/2012 17:06 CDT Performed On: 11/04/2012 17:06 CDT by DIANA CARDOZA LPN Vitals/Ht/Wt Actual Weight : 81.5 kg(Converted to: 179 lb 11 oz) Weight Source : Standing scale Dosing Weight Clinic : 81.5 kg DIANA ACRDOZA LPN - 11/09/2012 17:06 CDT Source: [facility] POWERCHART Document Id: [id number] CDT!5 documented in this encounter Plan of Treatment Not on filedocumented as of this encounter Visit Diagnoses Not on filedocumented in this encounter
--- OUTSIDE RECORDS SUMMARY | 2021-10-24 10:32 | XMS_ITS | Encounter Summary ---
:1945 Author Organization [facility] Address [address] [place] [address] Care Team Providers Name Role Phone Unavailable Primary Care Provider Unavailable Encounter Details Date Type Department Care Team Description 05/11/2013 Hospital Encounter [facility] Nicki Anthony, MAL, C.N.P., D. N.P. [address] [place] [address] (Wo rk) Social History Tobacco [...] Provider Ser - 05/11/2013 8:57 AM CDT [id number] REFERRAL SOURCE Nicki Anthony. Patient was seen in [facility] on 05/11/2013 for followup wellness coaching visit on the area of lifestyle management and weight loss/diabetes. CHIEF COMPLAINT/REASON FOR VISIT Followup wellness coaching visit. HISTORY OF PRESENT ILLNESS Her weight today is at 85.3 kg which is at 187.66 pounds. This is up 8.58 pounds since last session,seen on February 2013. SESSION OVERVIEW Today I [...] worried about her granddaughter's safety since doing so,and has also had some stress around recovery from her surgery. Overall, she wants to lose weight andget back to where she was before and eating healthy and taking care of herself. She feels that when she does take care of herself and eat less sugar along with losing weight, she feels better, bends eas ier, is more flexible, can walk further. Also her clothes fit better. Feels that her breathing is different, less labored and less anxiety. She feels that taking time for herself is also important. Sheis going to approach exercise as a scheduled time for herself like she would set any other appointment for herself and her day. She also shared that she has been having some nightmares. A lot of times,she will wake up in a panic, not know where she is or see things in front of her temporarily. She also says that she has been having trouble sleeping over the last 3 nights and attributes it to some deep worry around the idea of her maybe losing memory. She shared that she has been finding herself with taking longer to form words that she wants to say. She knows what the word is and just does not know why it seems that there is an extra piece of time before her being able to verbalize it. She is worried about this, worried about her health and is worried that maybe she is developing an early Alzheimer's or dementia. We discussed that a lot of times how it can just be stress and also could be the in crease of sugar and her not managing her stress and anxiety as she has not been exercising or takingcare of herself in the way that she was in previous months. She reported that she was angry and irritated back in January, and Nicki Anthony, her primary care physician, did up her medication for her thyroid at that time. She [...] D supplement of 5000 international units daily. She is going to schedule her exercise 8 a.m., and do this 3 to 5 times a week, also include her diet of cut ting out sugars completely and also implementing relaxation. [...] ANNIE PÉREZ On: 05/13/2013 01:48 PM Source: [facility] MHSDOLBEYNONRADSYS Document Id: [id number] documented in this encounter Plan of Treatment Not on filedocumented as of this encounter Visit Diagnoses Not on filedocumented in this encounter
--- OUTSIDE RECORDS SUMMARY | 2021-10-24 10:32 | XMS_ITS | Encounter Summary ---
:1945 Author Organization [facility] Address [address] [place] [address] Care Team Providers Name Role Phone Unavailable Primary Care Provider Unavailable Encounter Details Date Type Department Care Team Description 12/30/2012 Hospital Encounter [facility] Nicki Anthony, MAL, C.N.P., D.N.P. [address], [place] [phone] (Wo rk) Social History [...] by mouth daily. Take 0 with food [employer] [facility]. documented as of this encounter Plan of Treatment Not on filedocumented as of this encounter Procedures Procedure Name Priority Date/Time Associated Diagnosis Comme nts THYROID-STIMULATING Routine 12/30/2012 9:04 AM Re sults for this HORMONE-SENSITIVE RETREAD MOLD OPERATOR procedure are in (S-TSH) the results section. documented in this encounter Results Thyroid-Stimulating Hormone-Sensitive (s-TSH) (12/30/2012 9:04 AM RETREAD MOLD OPERATOR) P athologist Signature TSH 4.06 0.30 - 5.00 POWERCHART (Thyrotropin) MCIUML Specimen (Source) Anatomical Collection Method Collection Time Re ceived Time Location / / Volume Laterality Blood 12/30/2012 9:04 AM RETREAD MOLD OPERATOR Nicki Anthony APRN, C.N.P., D.N.P. LAB BLOOD ADD- ON Performing Organization Address City/State/ZIP Code Phon e Number POWERCHART documented in this encounter Visit Diagnoses Not on filedocumented in this encounter
--- OUTSIDE RECORDS SUMMARY | 2021-10-24 10:32 | XMS_ITS | Encounter Summary ---
:1945 Author Organization [facility] Address [address] [place] [address] Care Team Providers Name Role Phone Unavailable Primary Care Provider Unavailable Encounter Details Date Type Department Care Team Description 09/30/2012 Hospital Encounter HX [facility] Nicki Anthony, MAL, C.N.P., D. N.P. [address] [place] [address] (Wo rk) Social History Tobacco [...] by mouth daily. Take 0 with food [employer]. documented as of this encounter Progress Notes Conversion, Historical Provider Ser - 09/30/2012 9:45 AM CDT [id number] HEALTH & WELLNESS COACHING VISIT CHIEF COMPLAINT/REASON [...] some extreme sensitivity to the touch at nightduring around that area of the forearm. We [...] to have a play date with her fxvuod-qa-tof in the next week and is looking [...] to get down another 15 pounds which wouldbe right around the 150 adolfo. FOLLOW-UP PLAN We will continue to meet ongoing every 2 to 3 weeks as she sees helpful. Annie Pérez/rodrick Electronically Signed By: ANNIE PÉREZ On: 10/12/2012 02:34 PM Source: [facility] MHSDOLBEYNONRADSYS Document Id: [id number] documented in this encounter Plan of Treatment Not on filedocumented as of this encounter Visit Diagnoses Not on filedocumented in this encounter
--- OUTSIDE RECORDS SUMMARY | 2021-10-24 10:32 | XMS_ITS | Encounter Summary ---
:1945 Author Organization [facility] Address [address] [place] [address] Care Team Providers Name Role Phone Unavailable Primary Care Provider Unavailable Encounter Details Date Type Department Care Team Description 11/04/2012 Hospital Encounter [facility] Nicki Holt, MAL, C.N.P., D. N.P. [address] [place] [address] (Wo rk) Social History Tobacco [...] documented as of this encounter Progress Notes Nciki Holt D.N.P., CJairoNJairoP. - 11/04/2012 2:24 PM CDT [id number] CHIEF COMPLAINT/REASON FOR VISIT 1. Review medications. 2. Right shoulder pain. HISTORY OF PRESENT ILLNESS The patient is a 67-year-old female who presents to the clinic today in which she indicates that shewould like to follow-up on her previous laboratory results. Though we have previously discussed the laboratory results with her, she would like to just briefly review them. She is aware that her last TSH was noted to be mildly elevated at 5.55 in which her levothyroxine was increased from 25 mcg to 50mcg in which she is next due a total of 6 weeks duration for reevaluation. Given her overall improvement to her hemoglobin A1c and increase in her cholesterols it was advised she could discontinue her metformin as we will trial her without the medication, though she was to reinstate her simvastatin 10mg by mouth daily given her increase in LDL from 49 when she was on simvastatin 10 mg by mouth dailyin May of 2012, rechecked in October of 2012 without her simvastatin noted to be 142. She also indicates that she is aware that there was a very small amount of blood in her urine when her urine was checked on 10/21/2012 and is wondering if there is any further concern regarding this. She also hasa history of rotator cuff tear to the [...] These overall findings were discussed at length withthe patient. The patient felt comfortable with this [...] expressed understanding of the content Nicki Holt D.N.P./F.N.Payal/shi Electronically Signed By: NICKI HOLT DNP, FNP On: 11/05/2012 07:59 AM Source: [facility] MHSDOLBEYNONRADSYS Document Id: [id number] documented in this encounter Miscellaneous Notes Miscellaneous - Nicki Holt D.N.P., C.N.P. - 11/04/2012 3:50 PM CDT Ambulatory Depart Summary [address] [address] Visit Information Name: ELIDASTEVEN ARCHIE MAI [facility] Number: [id number] Visit Date: 11/04/2012 15:50:45 Attending Provider: NICKI HOLT DNP, FNP Primary Care Provider: NICKI HOLT DNP, FNP ELIDASTEVENARCHIE PAU has been given the following list [...] your provider for clarification. Additional Information: Source: [facility] POWERCHART Document Id: [id number] Miscellaneous - Nicki Holt D.N.P., C.N.P. - 11/04/2012 3:50 PM CDT Ambulatory Patient Summary [place] [id number] Visit Information Name: ARCHIE BAZAN [facility] Number: [id number] Current Date: 11/04/2012 15:50:46 Physicians [...] Date Time Location Reason Provider 11/18/2012 09:15 [facility] Family Med F/U - HEALTH WIRELESS SALES MANAGER [facility] Health Communications Agent Your Goals/Additional instructions: Source: [facility] POWERCHART Document Id: [id number] Miscellaneous - Vitaliy Darnell LJairoP.N. - 11/04/2012 2:31 PM CDT Adult Termite Exterminator Intake/History Adult Termite Exterminator Intake/History Entered On: 11/04/2012 14:39 CDT Performed On: 11/04/2012 14:31 CDT by VITALIY DARNELL SAND MIXER MACHINE Intake Chief Complaint : Consult on right [...] Mass Index : 31.6 kg/m2 VITALIY DARNELL [facility] - 11/04/2012 14:31 CDT General Info Information Given By : Patient Languages : Samoan VITALIY DARNELL [facility] 11/04/2012 14:31 CDT Subjective Pain Symptoms : No VITALIY DARNELL [facility] - 11/04/2012 14:31 CDT Dependent Habits Tobacco Use/Currently Using : No Tobacco Use/Last 12 months : No Exposure to Tobacco Smoke : Care provider denies smoking in home Smoking Status : Never smoker VITALIY DARNELL [facility] - 11/04/2012 14:31 CDT Tobacco Use Grid Last Use : Never VITALIY DARNELL [facility] 11/04/2012 14:31 CDT Alcohol Use : No VITALIY DARNELL [facility] 11/04/2012 14:31 CDT Caffeine Use Grid Caffeine Use : Current Type : Tea Frequency : Occasionally VITALIY DARNELL [facility] - 11/04/2012 14:31 CDT Recreational Drug Use Grid Drug Use : None VITALIY DARNELL [facility] 11/04/2012 14:31 CDT [facility] Document Id: [id number] CDT!40 documented in this encounter Plan of Treatment Not on filedocumented as of this encounter Visit Diagnoses Not on filedocumented in this encounter
--- OUTSIDE RECORDS SUMMARY | 2021-10-24 10:32 | XMS_ITS | Encounter Summary ---
:1945 Author Organization [facility] Address [address] [place] [address] Care Team Providers Name Role Phone Unavailable Primary Care Provider Unavailable Encounter Details Date Type Department Care Team Description 08/16/2012 Hospital Encounter HX [facility] Vickey Holt, MAL, C.N.P., D. N.P. [address] [place] [address] (Wo rk) Social History Tobacco [...] D.N.P., SimoneNLizbeth. - 08/16/2012 7:21 AM CDT [id number] CHIEF COMPLAINT/REASON FOR VISIT Dysuria. HISTORY OF PRESENT ILLNESS The patient is a 67-year-old female who presents to clinic today with chief complaint of dysuria present now for the past several days duration. She indicates the symptoms are not improving. She indicates it is more like a pelvic pressure. She has not had any fevers, chills, nausea, vomiting, shortness of breath or difficulty breathing. She also indicates that she has some right shoulder ongoing painstatus post a fall that she sustained approximately 6 months ago during the wintertime. She indicates she had grabbed something to catch herself from falling with her right arm and injured her right shoulder. She indicates since then she has had some loss of range of motion. She is not having any numbness or tingling and has tried some child care giver for this with no symptom improvement. CURRENT MEDICATIONS ALLERGIES Medications and allergies reviewed. Please see chart. PAST MEDICAL HISTORY/SURGICAL HISTORY FAMILY HISTORY Past medical, surgical, family history reviewed. Please see chart. PHYSICAL EXAMINATION GENERAL: Patient is alert and oriented x 3. HEENT: Head is normocephalic and atraumatic. PERRLA. Oropharynx is pink and moist. Bilateral TMs areclear. Bony landmarks are noted and within normal limits. Nares are patent with no erythema or drainage noted. NECK: No anterior [...] is to follow up in the clinic if her symptoms worsen or continue. Patient felt comfortable with this treatment plan. 2. Right shoulder pain: At this time, we will plan on having her follow up with physical therapy forfurther treatment regarding her shoulder pain. We will also plan on scheduling an MRI with contrast through [facility] in [place]. We will contact her regarding these results, though lorenawill only plan on going forward with this [...] Patient/child/caregiver expressed understanding of the content. Corrine LucasNRegina/F.N.P/felix Electronically Signed By: VICKEY HOLT DNP, FNP On: 08/17/2012 08:18 PM Source: [facility] MHSDOLBEYNONRADSYS Document Id: [id number] documented in this encounter Nursing Notes Jie Thomason L.P.NJairo - 08/16/2012 1:07 PM CDT MRI Per Provider Vickey Holt, MRI with contrast order was faxed to [facility]. Fax # . Electronically Signed By: JIE THOMASON LPN On: 08/16/2012 01:09 PM Source: [facility] POWERCHART Document Id: [id number] documented in this encounter Miscellaneous Notes Miscellaneous - Vickey Holt D.N.P., C.N.P. - 08/16/2012 9:15 AM CDT Ambulatory Patient Summary [id number] [place] [address] Visit Information Name: MARCIAL BAZAN PAU [facility] Number: [id number] Current Date: 08/16/2012 09:15:53 Physicians [...] [facility] Coal Gasification Technician 08/26/2012 08:45 [facility] Coal Gasification Technician 09/02/2012 08:45 [facility] FO[facility] Coal Gasification Technician 09/09/2012 08:45 [facility] FO[facility] Coal Gasification Technician 09/16/2012 08:45 [facility] FO[facility] Coal Gasification Technician Your Goals/Additional instructions: Source: [facility] POWERCHART Document Id: [id number] Miscellaneous - Vickey Holt, Maritza.N.P., C.N.P. - 08/16/2012 9:15 AM CDT Ambulatory Depart Summary [address] [address] Visit Information Name: MARCIAL BAZAN [facility] Number: [id number] Visit Date: 08/16/2012 09:15:52 Attending Provider: VICKEY HOLT DNP, SOAP MIXER Primary Care Provider: VICKEY HOLT DNP, SOAP MIXER BENIMARCIAL PAU has been given the following list [...] your provider for clarification. Additional Information: Source: [facility] POWERCHART Document Id: [id number] Miscellaneous - Sylvia Darnell LJairoP.N. - 08/16/2012 7:28 AM CDT Adult Wet Plant Operator Intake/History Adult Wet Plant Operator Intake/History Entered On: 08/16/2012 7:36 CDT Performed On: 08/16/2012 7:28 CDT by SYLVIA DARNELL [employer] Intake Chief Complaint : Right shoulder slipped [...] Information Given By : Patient Languages : Upper Sorbian SYLVIA DARNELL [facility] - 08/16/2012 7:28 CDT Subjective Pain Symptoms : No SYLVIA DARNELL LPN - 08/16/2012 7:28 CDT Dependent Habits Tobacco Use/Currently Using : No Tobacco Use/Last 12 months : No Tobacco Use/Advised to Quit : No Exposure to Tobacco Smoke : Care provider denies smoking in home Smoking Status : Never smoker SYLVIA DARNELL LPN - 08/16/2012 7:28 CDT Tobacco Use Grid Last Use : Never SYLVIA DARNELL LPN - 08/16/2012 7:28 CDT Alcohol Use : No SYLVIA DARNELL LPN - 08/16/2012 7:28 CDT Caffeine Use Grid Caffeine Use : Current Type : Tea Frequency : Occasionally SYLVIA DARNELL LPN - 08/16/2012 7:28 CDT Recreational Drug Use Grid Drug Use : None SYLVIA DARNELL LPN - 08/16/2012 7:28 CDT [facility] Document Id: [id number]!41 documented in this encounter Plan of Treatment Not on filedocumented as of this encounter Procedures Procedure Name Priority Date/Time Associated Comments Diagnosis URINALYSIS, ROUTINE Routine 08/16/2012 8:20 AM Re sults for this CDT procedure are i n the results section. URINE MICROSCOPIC Routine 08/16/2012 8:20 AM Resu lts for this CDT procedure are i n the results section. documented in this encounter Results Urine Microscopic (08/16/2012 8:20 AM CDT) [facility] Method Time Signature HXUr WBC 5-10 0 - 2 POWERCHART Red Blood Cell 0-2 0 - 2 POWERCHART Clump, Urine HXUr Bacteria Trace POWERCHART HXUr Epithelial Occasional POWERCHART Comment: Occasional squamous, transition al, and renal epithelials present. Specimen Anatomical Collection Method Collection Time Receive d Time (Source) Location / / Volume Laterality Urine 08/16/2012 8:20 AM 3 8:20 CDT AM CDT Vickey Holt APRN, C.N.P., D.N.P. LAB URINE ORDSingh PADRONCHRISTOPHER Performing Organization Address [facility] Phon e Number POWERCHART Urinalysis, Routine (08/16/2012 8:20 AM CDT) [facility] Method Time Signature HXUr Color Yellow Yellow POWERCHART Appearance Clear Clear POWERCHART Glucose Negative Negative POWERCHART HXBILIRUBIN Negative Negative POWERCHART Ketones, QL(U) Negative Negative POWERCHART Specific 1.015 1.000 - POWERCHART Ranger, POCT, U 1.030 pH, POCT, Urine 5.0 [...] Holt APRN, C.N.P., D.N.P. LAB URINE ORDE NEREIDACHRISTOPHER Performing Organization Address City/[facility] Phon e Number POWERCHART documented in this encounter Visit Diagnoses Not on filedocumented in this encounter
--- OUTSIDE RECORDS SUMMARY | 2021-10-24 10:32 | XMS_ITS | Encounter Summary ---
:1945 Author Organization [facility] Address [address] [place] [address] Care Team Providers Name Role Phone Unavailable Primary Care Provider Unavailable Encounter Details Date Type Department Care Team Description 09/14/2012 Hospital Encounter [facility]X [facility] Nicki Holt, MAL, C.N.P., D.N.P. [address] [place], [place] [phone] (Wo rk) Social History [...] by mouth daily. Take 0 with food [employer] [facility]. documented as of this encounter Miscellaneous Notes Miscellaneous - Nicki Holt, Maritza.N.P., C.N.P. - 09/14/2012 7:51 PM CDT Normal Results Letter 14 September 2012 ARCHIE BAZAN [address] [place] [id number] Dear Archie GUNDERSON, Your urine test did [...] 4.00 - 6.00 Sincerely, NICKI HOLT [address] [place] [address] Electronic Signature Electronically Signed By: NICKI HOLT DNP, CASINO BANKER On: 14 September 2012 This document has images extracted. Source: [facility] POWERCHART Document Id: [id number] documented in this encounter Plan of Treatment Not on filedocumented as of this encounter Procedures Procedure Name Priority Date/Time Associated Comments Diagnosis URINALYSIS, ROUTINE Routine 09/14/2012 9:48 AM Re sults for this CDT procedure are i n the results section. URINE MICROSCOPIC Routine 09/14/2012 9:48 AM Resu lts for this CDT procedure are i n the results section. HEMOGLOBIN A1C, B Routine 09/14/2012 9:42 AM Resu lts for this CDT procedure [...] / Volume Laterality Urine 09/14/2012 9:48 AM 3 9:48 CDT AM CDT Nicki Holt QA AUTOMATION DEVELOPER, C.N.P., D.N.P. LAB URINE ORDE RABLES Performing Organization Address City/State/ZIP Code Phon e Number POWERCHART Urinalysis, Routine (09/14/2012 9:48 AM CDT) [facility] gist Method Time Signature HXUr Color Yellow Yellow POWERCHART Appearance Clear Clear POWERCHART Glucose Negative Negative POWERCHART HXBILIRUBIN Negative Negative POWERCHART Ketones, QL(U) Negative Negative POWERCHART Specific 1.020 1.000 - POWERCHART [place], POCT, U 1.030 pH, POCT, Urine 5.5 [...] (09/14/2012 9:42 AM CDT) Analysis Performed At [facility] Time Signature Hemoglobin A1c, 6.87 (H) [...]
--- OUTSIDE RECORDS SUMMARY | 2021-10-24 10:32 | XMS_ITS | Encounter Summary ---
:1945 Author Organization [facility] Address [address] [place] [address] Care Team Providers Name Role Phone Unavailable Primary Care Provider Unavailable Encounter Details Date Type Department Care Team Description 01/03/2013 - Hospital Encounter [facility] Arias Finn 05/11/2013 AURELIANO Thurston M.D. [address] [phone] Social History Tobacco Use Types [...] Lovell, P.T. - 02/21/2013 12:00 AM CST [id number] IMPRESSION/REPORT/PLAN This patient was seen for a total of 7 visits being status post right rotator cuff repair. At last visit, patient's mobility was 100 degrees of shoulder flexion with abduction to 75 degrees. At that time, there did appear to be of some adhesive capsulitis noted. She was to followup with her doctor, this being Dr. Velasco. We were going to followup with therapy directly after that. However, she has not followed up with further therapy. We did call the patient and she stated that her physician thought that she should just give this time to see if it would work itself out. Therefore, we will discontinuewith patient holding on further therapy at this time. Otilio Montez/kena Electronically Signed By: CHILANGO LOVELL On: 02/24/2013 11:50 AM Source: [facility] MHSDOLBEYNSRINIVASASYS Document Id: [id number] THERAPIST documented in this encounter Medications at Time of Discharge Medication Sig Dispensed Refills Start Date End Date ASPIRIN ORAL Take 81 mg by mouth daily. Take 0 with food for [employer]. documented as of this encounter Progress Notes Chilango Lovell P.T. - 01/19/2013 12:00 AM CST [id number] IMPRESSION/REPORT/PLAN Marcial comes in today still with similar issues. She feels that the exercises at home are only doingso much where she is not seeing a [...] being against gravity with patient in the supine. We also did provide some light resistance for isometric contractions for internal/external rotation. Patient is presently using the arm outside of the sling. not that with any type of weights but she is using it to help with drinking coffee and opening doors as such. We advised her to continue doing this to help with the mobility. Total time [...] CHILANGO LOVELL On: 01/25/2013 08:29 AM [facility] Document Id: [id number] Chilango Mabry P.T. - 01/17/2013 12:00 AM CST [id number] IMPRESSION/REPORT/PLAN Marcial comes in today without any significant changes overall. We did treat today with hot packs forthe first 15 minutes followed by manual techniques [...] cane exercises. She is doing towel exercises forinternal rotation behind her back. We also had her lie her arm on the table and she scoots back withher wheeled chair where she can relax more and bring her shoulder into further flexion. However, there is a significant restriction with flexion. We will continue to progress as able. Plan will be to continue. Otilio Montez/arnol DOCID: [110] Electronically Signed By: CHILANGO LOVELL On: 01/25/2013 08:34 AM Source: [facility] Document Id: [id number] Chilango Mabry PKarthik - 01/12/2013 12:00 AM CST [id number] IMPRESSION/REPORT/PLAN Marcial comes in today for continued therapy for mobility on her right shoulder. It is noted that shehas a considerable amount of tightness for shoulder [...] internal rotation with towel trying to bring her arm behind her back. We encouraged her that she be aggressive with this. Total time today was 25 minutes of manual therapy. ASSESSMENT: Patient is with significant tightness in her shoulder. There is some question as whetheror not this may be adhesive capsulitis. PLAN: The plan will be to continue. She will be seeing her physician in approximately 10 days. Otilio Montez/rodrick DOCID: [110] Electronically Signed By: CHILANGO LOVELL On: 01/25/2013 08:34 AM Source: [facility] MARSYNPERRY Document Id: [id number] THERAPIST Chilango Lovell P.T. - 01/10/2013 12:00 AM CST [id number] IMPRESSION/REPORT/PLAN Marcial comes in today stating she has been trying to do her exercises aggressively at home. Her was in with her today. He notes that she has been very adventist about her exercises. We did continue today with hot packs to the shoulder followed by manual techniques for 15 minutes for aggressivepassive range of motion. Able to obtain shoulder flexion to approximately 100 - 105 degrees today. This is an improvement as compared to last time. Total time today was 15 minutes of Therex. ASSESSMENT: Patient tolerated well. She is progressing with some motion. Plan will be to continue. She will be seeing her drug and alcohol treatment specialist once again I believe this week as well. Otilio Montez/rodrick DOCID: [110] Electronically Signed By: CHILANGO LOVELL On: 01/18/2013 08:09 AM Source[facility] Document Id: [id number] Chilango Mabry P.T. - 01/07/2013 12:00 AM CST [id number] IMPRESSION/REPORT/PLAN Marcial comes in today stating that she has been doing exercises at home as much as she can. We did continue today with hot packs to the shoulder followed by passive range of motion once again. Able to bring shoulder to approximately 95 degrees of shoulder flexion today. We did also instruct patient with further exercises. We did review her exercises that she was doing. We recommend that she do these exercises at least five to six times per day. She states that she is only doing hers for approximately 2 to 3 times a day. We encouraged her to do this more often and that this was very important to gain mobility. ASSESSMENT: Patient tolerated well overall. Total time was 25 minutes of manual therapies. Plan willbe to continue. Otilio Montez/elizabeth DOCID: [110] Electronically Signed By: CHILANGO LOVELL On: 01/25/2013 08:41 AM Source: [facility] Document Id: [id number] Chilango Mabry PKarthik - 01/05/2013 12:00 AM CST [id number] IMPRESSION/REPORT/PLAN Marcial comes in today stating that [...] - 95 degrees. Shoulder external rotation is to approximately 20 degrees at this time. Abduction is [...] is difficult for her to work through at this time. She will continue to be aggressive at home. Plan will be to continue. Otilio Montez/arnol DOCID: [110] Electronically Signed By: CHILANGO LOVELL On: 01/07/2013 06:13 AM Source: [facility] MHSDOLBEYNONRADSYS Document Id: [id number] THERAPIST documented in this encounter Consult Notes Chilango Lovell P.T. - 01/03/2013 12:00 AM CST [id number] CHIEF COMPLAINT/REASON FOR VISIT This patient comes in being status post right rotator cuff repair. Her surgery was on 11/23/2012. This puts her at approximately 6 weeks postop now. She states that she has been in the sling most of the time. She can now start to wean herself out of the sling. She states that she has not been using her shoulder throughout this whole duration. She has not been doing anything for stretching outside of maybe some pendulum exercises. She presently rates her pain as a 1- 2/10 on a 0 - 10 pain scale. It does not get a whole lot worse than this. She would describe her pain as being aching. Rest makes it feel better. MEDICATIONS At this time, patient is not taking anything for pain for the shoulder. IMPRESSION/REPORT/PLAN Upon observation, patient ambulates into therapy with no difficulty. She is not a fall risk at this time being able to perform a tug test without difficulty. She is able get up on the treatment table without difficulty. We did help her lie down [...] also limited, but we did not push thistoo aggressively today. We did instruct the patient [...] with a severity modifier being CK. Her projected goal status will be G [id number] with a [...] CHILANGO LOVELL On: 01/07/2013 06:17 AM Source: [facility] MHSDOLBEYNSRINIVASASYSuzy Document Id: [id number] THERAPIST documented in this encounter Miscellaneous Notes Miscellaneous - Tameka Velasco R.N. - 03/09/2013 8:25 AM CST Reminder Msg From: TAMEKA VELASCO RN To: [place] Colonoscopy Pool; Sent: 03/09/2013 08:25:33 LINE THERAPIST Show up: 10/28/2018 08:25:00 CDT Subject: Reminder Msg Due Date/Time: 01/05/2019 08:24:00 LINE THERAPIST Please Remember to: Patient had her last scope in 2008, she is a 10 year follow- up, bx were normal mucosa. She is due in 2019. PATIENT: ( ) Call Patient ( ) Ask Patient to ( ) ( ) Call Relative ( ) Schedule Patient ( ) ( ) Call for Concrete Form Setter ( ) Follow up on Results ( ) Other: PROVIDER: ( ) Call Physician ( ) Call Pharmacist ( ) Call Lab ( ) Other: Special Instructions: Comments: Source: [facility] POWERCHART Document Id: [id number] Electronically signed by Sae [facility] Fixed Wing Aircraft Crew Chief [id number] at 07/16/2016 5:15 PM CDT Miscellaneous - Vickey Holt D.NJairoP., C.N.P. - 03/04/2013 3:01 PM LINE THERAPIST Medication MARCIAL BAZAN [birth year] [address] [place] [phone] To Whom It May Concern: The letter is being written on behalf of Marcial Bazan. I do recommend that the patient take Fish Oilwith omega-3 by mouth daily as directed on package for cardiac benefit. She is also instructed to take calcium with vitamin D for overall bone health, 600 mg 3 times daily. She may use Mucinex jkxy-djm-qsuhnxy as directed on package as needed for nasal congestion. I also encourage her to use aspirin 81 mg by mouth daily for cardiac protection and also given her medical history of type 2 diabetes mellitus. She is also instructed to use Prilosec bxzx-hha-bxsiqgy 20 mg extended release tablet to take 1tablet by mouth daily as needed for gastroesophageal reflux, heartburn, and/or when taking nonsteroidal anti-inflammatories. (These medications are used for hyperlipidemia, type 2 diabetes mellitus, and osteoporosis which Marcial has been diagnosed with.) Sincerely, Corrine LucasN.P./NereidaN.Payal [facility] Electronically Signed By: VICKEY HOLT DNP, FNP On: 03/04/2013 03:01 PM Source: [facility] POWERCHART Document Id: [id number] THERAPIST documented in this encounter Plan of Treatment Not on filedocumented as of this encounter Visit Diagnoses Not on filedocumented in this encounter
--- OUTSIDE RECORDS SUMMARY | 2021-10-24 10:32 | XMS_ITS | Encounter Summary ---
:1945 Author Organization [facility] Address [address] [place] [address] Care Team Providers Name Role Phone Unavailable Primary Care Provider Unavailable Encounter Details Date Type Department Care Team Description 01/20/2013 Hospital Encounter [facility] Nicki Anthony, MAL, C.N.P., D. N.P. [address] [place] [address] (Wo rk) Social History Tobacco [...] Provider Ser - 01/20/2013 9:22 AM CST [id number] HEALTH AND WELLNESS COACHING The patient was seen at [facility] in [place] on 01/20/2013 for followup wellness coaching visit [...] relaxation to help with this as well. She also shared that she has been doing well with her eating for most of the days, but oftentimes the second week will go into an all or [...] towards the next meal, or even just drinksa glass of water right when she makes that association and move forward right then rather than creating a bunch of other decisions around food that she will not feel happy about later. We also discussed one of her downfall times which is a 3:00 to 4:00 p.m. time where her blood sugar oftentimes is lowand she is hungry before dinner. We talked about a snack list and what would be a great thing to have during that time that would satiate her and also move her forward in keeping a healthy diet but also to take care of her so she is not ravenous during that time. She came up with several strategies like gluten-free chips with some cheese, fruit, or cottage cheese along with Albanian yogurts and nuts. FOLLOWUP PLAN We will plan on seeing Marcial in 2 weeks moving forward in her weight loss journey and also looking at increasing her relaxation response as she heals up her shoulder and moves forward in this area. She shared that she would like to meet every 2 weeks for the next few months through the holiday seasonfor more accountability and guidance. Annie Miramontes/[facility] Electronically Signed By: ANNIE MIRAMONTES On: 01/21/2013 03:58 PM Source: [facility] MHSDOLMOMO Document Id: [id number] documented in this encounter Plan of Treatment Not on filedocumented as of this encounter Visit Diagnoses Not on filedocumented in this encounter
--- OUTSIDE RECORDS SUMMARY | 2021-10-24 10:32 | XMS_ITS | Encounter Summary ---
:1945 Author Organization [facility] Address [address] [place] [address] Care Team Providers Name Role Phone Unavailable Primary Care Provider Unavailable Encounter Details Date Type Department Care Team Description 12/30/2012 Hospital Encounter [facility] Nicki Holt, MAL, C.N.P., D. N.P. [address] [place] [address] (Wo rk) Social History Tobacco [...] Comments Blood Pressure 130/68 12/30/2012 10:15 AM TAX INTERN Pulse 72 12/30/2012 10:15 AM TAX INTERN Temperature - - Respiratory Rate 16 12/30/2012 10:15 AM TAX INTERN Oxygen Saturation - - Inhaled Oxygen Concentration - - Weight 82.4 kg (181 lb 10.5 oz) 12/30/2012 10:15 AM TAX INTERN Height 162.3 cm (5' 3.9) 12/30/2012 10:15 AM TAX INTERN Body Mass Index 31.28 12/30/2012 10:15 AM TAX INTERN documented in this encounter Medications at Time of Discharge Medication Sig Dispensed Refills Start Date End Date ASPIRIN ORAL Take 81 mg by mouth daily. Take 0 with food for heart health. documented as of this encounter Progress Notes Nicki Holt D.N.P., CJairoNJairoP. - 12/30/2012 10:02 AM CST [id number] CHIEF COMPLAINT/REASON FOR VISIT Skin lesion underneath [...] which currently she is taking levothyroxine 50 mcg by mouth daily in which she has been tolerating well and came in today for a TSH as well. PAST MEDICAL/SURGICAL HISTORY Reviewed. Please see chart. FAMILY HISTORY Reviewed. Please see chart. MEDICATIONS Reviewed. Please see chart. ALLERGIES Reviewed. Please see chart. PHYSICAL EXAMINATION GENERAL: The patient is an alert, well-nourished, 67-year-old female that appears to be in no acute distress. HEAD: Normocephalic, atraumatic. SKIN: Lesion just under [...] patient. Patient was given information from the [employer] site regarding seborrheic keratosis in which I indicated we will just continue monitoring this. Patient felt very comfortable with this treatment plan. 2. Hypothyroidism: Presently, at this time, I indicated to the patient her TSH is under adequate control in which we will continue monitoring with a repeat TSH in 6 months duration given the fact that she has just recently required a change to her weight on her levothyroxine dosage. Patient stated sheunderstands this plan. She otherwise denied having any [...] DNP, FNP On: 12/31/2012 12:33 PM Source: [facility] MHSDOLBEYNONRADSYS Document Id: [id number] INTERN documented in this encounter Miscellaneous Notes Miscellaneous - Nicki Holt D.N.P., C.N.P. - 12/30/2012 12:19 PM TAX INTERN Ambulatory Patient Summary [address] [address] Visit Information Name: ARCHIE BAZAN [facility] Number: [id number] Current Date: 12/30/2012 12:19:37 Physicians [...] Date Time Location Reason Provider 01/03/2013 12:45 [facility] PT/OT RT ROTATOR CUFF Ziyad Childs 01/20/2013 09:30 [facility] Family Med f/u [facility] Health Application Processor Attention: Contact your local Clinic if further appointment detail needed. Your Goals/Additional instructions: Source: [facility] POWERCHART Document Id: [id number] INTERN Miscellaneous - Nicki Holt D.N.P., C.N.P. - 12/30/2012 12:19 PM TAX INTERN Ambulatory Depart Summary [place] - [address] [address] Visit Information Name: ARCHIE BAZAN [facility] Number: [id number] Visit Date: 12/30/2012 12:19:36 Attending [...] your provider for clarification. Additional Information: Source: [facility] POWERCHART Document Id: [id number] INTERN Miscellaneous - Vitaliy Darnell LJairoP.N. - 12/30/2012 10:15 AM CST Adult Activity Therapy Teacher Intake/History Adult Activity Therapy Teacher Intake/History Entered On: 12/30/2012 10:19 TAX INTERN Performed On: 12/30/2012 10:15 TAX INTERN by VITALIY DARNELL LPN Intake Chief Complaint [...] Mass Index : 31.28 kg/m2 VITALIY DARNELL [facility] - 12/30/2012 10:15 TAX INTERN General Info Information Given By : Patient Languages : Lithuanian VITALIY DARNELL [facility] 12/30/2012 10:15 TAX INTERN Subjective Pain Symptoms : No VITALIY DARNELL [facility] 12/30/2012 10:15 TAX INTERN Dependent Habits Tobacco Use/Currently Using : No Tobacco Use/Last 12 months : No Tobacco Use/Advised to Quit : No Exposure to Tobacco Smoke : Care provider denies smoking in home Smoking Status : Never smoker VITALIY DARNELL [facility] - 12/30/2012 10:15 TAX INTERN Tobacco Use Grid Last Use : Never VITALIY DARNELL [facility] 12/30/2012 10:15 TAX INTERN Alcohol Use : No VITALIY DARNELL [facility] 12/30/2012 10:15 TAX INTERN Caffeine Use Grid Caffeine Use : Current Type : Tea Frequency : Occasionally VITALIY DARNELL [facility] - 12/30/2012 10:15 TAX INTERN Recreational Drug Use Grid Drug Use : None VITALIY DARNELL [facility] 12/30/2012 10:15 TAX INTERN [facility] Document Id: [id number] [id number] INTERN!41 INTERN documented in this encounter Plan of Treatment Not on filedocumented as of this encounter Visit Diagnoses Not on filedocumented in this encounter
--- OUTSIDE RECORDS SUMMARY | 2021-10-24 10:32 | XMS_ITS | Encounter Summary ---
:1945 Author Organization [facility] Address [address] [place] [address] Care Team Providers Name Role Phone Unavailable Primary Care Provider Unavailable Encounter Details Date Type Department Care Team Description 08/31/2012 Hospital Encounter HX [facility] Jackson Mathis M. D. Social [...] Provider Ser - 08/31/2012 9:30 AM CDT [id number] Quick Note: Note: These results were ordered by a Referring Physician and have not been reviewed by a physician at in [place]. FAXED TO VICKEY HOLT [facility] ON 09/02/2012. Source[facility] Document Id: [id number] documented in this encounter Plan of Treatment Not on filedocumented as of this encounter Visit Diagnoses Not on filedocumented in this encounter
--- OUTSIDE RECORDS SUMMARY | 2021-10-24 10:32 | XMS_ITS | Encounter Summary ---
:1945 Author Organization [facility] Address [address] [place] [address] Care Team Providers Name Role Phone Unavailable Primary Care Provider Unavailable Encounter Details Date Type Department Care Team Description 08/20/2012 Hospital Encounter [facility] Nicki Anthony, MAL, C.N.P., D. N.P. [address] [place] [address] (Wo rk) Social History Tobacco [...] Provider Ser - 08/20/2012 8:55 AM CDT [id number] HEALTH AND WELLNESS COACHING Patient was seen at [facility] in [place] on 08/20/2012 for follow-up wellness coaching visit [...] until she started to create a food journal.She also reports being active doing some kind of movement every day and doing her walking routine atleast every other day. She is heading off [...] patient is extremely excited and motivated. Annie Pérez/[facility] Electronically Signed By: ANNIE PÉREZ On: 08/23/2012 10:34 AM Source: [facility] MHSDOLBEYNONRADSYS Document Id: [id number] documented in this encounter Miscellaneous Notes Miscellaneous - Macy Fraga, RJairoN. - 08/23/2012 10:26 AM CDT Prior Auth- Metformin From: MACY CALDERA RN Sent: 08/23/2012 10:26:09 CDT Subject: Prior Auth- Metformin Prior Auth for Metformin HCL ER 1000mg approved by [employer] 08/16/12- 08/16/13. [place] notified, pt notified. Source: [facility] POWERCHART Document Id: [id number] Electronically signed by [facility], [facility] Support Teacher [id number] at 07/16/2016 1:01 AM CDT documented in this encounter Plan of Treatment Not on filedocumented as of this encounter Visit Diagnoses Not on filedocumented in this encounter
--- OUTSIDE RECORDS SUMMARY | 2021-10-24 10:32 | XMS_ITS | Encounter Summary ---
:1945 Author Organization [facility] Address [address] [place] [address] Care Team Providers Name Role Phone Unavailable Primary Care Provider Unavailable Encounter Details Date Type Department Care Team Description 08/31/2012 Hospital Encounter HX NO MAPPING Nicki Anthony, MAL, C.N.P., D.N.P. [address] [place], [place] [phone] (Wo rk) Social History [...]
--- OUTSIDE RECORDS SUMMARY | 2021-10-24 10:32 | XMS_ITS | Encounter Summary ---
:1945 Author Organization [facility] Address [address] [place] [address] Care Team Providers Name Role Phone Unavailable Primary Care Provider Unavailable Encounter Details Date Type Department Care Team Description 05/26/2013 Hospital Encounter [facility] Nicki Holt, MAL, C.N.P., D.N.P. [address] [place], [place] [phone] (Wo rk) Social History [...] Provider Ser - 05/26/2013 8:35 AM CDT [id number] HEALTH AND WELLNESS COACHING REFERRAL SOURCE Nicki Holt, ELIDA Patient was seen in [facility] on 05/26/2013 for a followup wellness coaching [...] really stepping more into the area of lifestyle for herself. She has also shared that since she has been eating better, she has had no palpitations any longer along with leg cramps and also feels that she has less anxiety. She is continuing to do her relaxation 3 times a week in addition to listening to the relaxation CD and also holding her granddaughter also for relaxation purposes. She is really wanting to step into a no sugar diet for a while inaddition to increasing her water intake. She feels [...] ANNIE PÉREZ On: 06/02/2013 11:53 AM Source: [facility] MHSDOLBEYNSRINIVASASYS Document Id: [id number] documented in this encounter Miscellaneous Notes Miscellaneous - Nicki Holt D.N.P., C.N.P. - 05/26/2013 2:37 PM CDT Normal Results Letter 26 May 2013 ARCHIE BAZAN [address] [place] [id number] Dear ARCHIE BAZAN, Result Name Current Result Previous Result Normal Range Hgb A1c (%) (H) 7.49 05/26/2013 (H) 7.46 02/07/2013 4.00 - 6.00 Sincerely, NICKI HOLT [address] [facility] [address] Electronic Signature Electronically Signed By: NICKI HOLT DNP, CASING CLEANER On: 26 May 2013 This document has images extracted. Source: [facility] POWERCHART Document Id: [id number] documented in this encounter Plan of Treatment Not on filedocumented as of this encounter Procedures Procedure Name Priority Date/Time Associated Diagnosis Comme nts HEMOGLOBIN A1C, B Routine 05/26/2013 8:47 AM Resu lts for this CDT procedure [...]
--- OUTSIDE RECORDS SUMMARY | 2021-10-24 10:32 | XMS_ITS | Encounter Summary ---
:1945 Author Organization [facility] Address [address] [place] [address] Care Team Providers Name Role Phone Unavailable Primary Care Provider Unavailable Encounter Details Date Type Department Care Team Description 06/01/[address] [facility] [place] Nicki Holt, MAL, C.N.P., D. N.P. [address] [place] [address] (Wo rk) Social History Tobacco [...] Milner R.N. - 06/01/2013 12:58 PM CDT [id number] Marcial is a very pleasant, 67-year-old female who comes in today for her initial Medicare annual wellness visit. PHYSICAL EXAMINATION Weight is 83.6 kg. Height is 158.4 cm. Blood pressure is 100/60 on the right arm with a regular cuff. Body mass index is 33.3. Obstructive sleep apnea assessment: Neck circumference is 42 cm. Total sleep apnea clinical score of5. ALLERGIES 1. Erythromycin. 2. Benicar. MEDICATIONS 1. [...] HISTORY Marcial is . She lives in [facility]. She is retired. 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 They do have a pet. He is a poodle. They own their own home. She eats a fairly well-balanced diet on most days. She admits that she does not completely follow the number of carbohydrates which [...] . Her mother at age 50 from breastcancer. Her father at age 68 from a myocardial infarction. He had history of coronary artery disease and lung problems. She is uncertain of what exactly. Marcial has 2 brothers. She is the 2nd of 3in the family. Her older brother is age [...] denies the use of any hearing aids. Her responses to the Medicare annual wellness health questionnaire in regards to hearing were all negativeexcept for some deficit in a crowded or noisy room. Vision Screen: Last eye examination was about 1 year ago. She was encouraged to schedule an eye examination. Per that diabetes guidelines, she is entitled to a yearly exam. Today reading the Snellen eye chart with corrective lenses right eye 20/40, left eye 20/25, and both eyes 20/30. She has not noticed any changes in her vision and she is able to read and perform her activities to her satisfaction. Dental Exam: She has her own teeth in good repair. She has cleanings every 6 months. Her last dentalexam was in February of 2013. ACTIVITIES OF DAILY LIVING: She is quite independent of all activities of daily living. She is able to manage her own medications. She continues to drive without restrictions and she wears her % of the time. FALL RISK: She denies of any falls in the past year. She has a hobby room which is in a different building away from her house and she was cautioned particularly in the winter months to use a walking stick or shoes with cleats to avoid falling on the way to the hobby room in back. Also precautionary gu idelines were given for adding safety to the home. The house is positive for a smoke detector HEALTHCARE PROVIDERS AND LIST OF SUPPLIERS: Nicki Holt, [facility] in [place] is her primary care provider, [facility] for her dental and pharmaceutical needs. Anthony in [place] is her eye doctor and [facility] chiropractor for chiropractic needs. EDUCATION, COUNSELING AND RECOMMENDATIONS: Marcial was given the patient education from [facility] entitled Eat Well Use a Plate Method [...] site and 800 number to contact to get information on resources that are available to seniors [...] Last diabetes screen May 26, 2013, her A1cwas 7.49%. This is up quite a bit from her previous reading. Last lipid screen February 07, 2013 total cholesterol was 160, triglycerides 119, HDL of 56 and LDL of 80. Pneumococcal vaccine January. Diphtheria tetanus February 14, 2010. Influenza November [...] 2. Scheduled a diabetic refresher with the clinical staff educator. 2. Recommendation for colonoscopy, colon cancer screening [...] Electronically Signed by: DIANNE LONDON RN On: 06/08/2013 12:09 PM Co-Signed By: NICKI HOLT DNP, COMBINER On: 06/10/2013 07:39 AM Source: [facility] MHSDOLBEYNONRADSYS Document Id: [id number] documented in this encounter Procedure Notes Dianne London R.N. - 06/01/2013 1:16 PM CDT Vision Testing Vision Testing Entered On: 06/01/2013 13:19 CDT Performed On: 06/01/2013 13:16 CDT by DIANNE LONDON RN Vision Testing Corrective Lenses : Glasses Eye, Right with Correction : 20/40 Eye, Left w/Correction : 20/25 Eyes, Both with Correction : 20/30 DIANNE LONDON RN - 06/01/2013 13:16 CDT Source: [facility] POWERReveal Data Document Id: [id number] CDT!6 documented in this encounter Miscellaneous Notes [...] LONDON RN - 06/01/2013 13:45 CDT Source: [employer] Document Id: [id number] CDT!10 Miscellaneous - Dianne London, RJairoNJairo - 06/01/2013 1:42 PM CDT PHQ-9 PHQ-9 [...] LONDON RN - 06/01/2013 13:42 CDT Source: [employer] Document Id: [id number] CDT!13 Miscellaneous - Dianne London R.N. - [...] DIANNE LONDON RN - 06/01/2013 13:33 CDT Psychosocial Domestic Abuse Concerns : None DIANNE LONDON RN - 06/01/2013 13:33 CDT Advance Directive Advanced Directives : No DIANNE LONDON RN - 06/01/2013 13:33 CDT Educ Needs Learning Style Preference Adult Grid Patient : Verbal explanation, Demonstration Family : None DIANNE LONDON RN - 06/01/2013 13:33 CDT [facility] Document Id: [id number] CDT!33 Miscellaneous - Dianne London R.N. - 06/01/2013 1:20 PM CDT Adult Billing Collections Specialist Intake/History Adult Billing Collections Specialist Intake/History Entered On: 06/01/2013 13:33 CDT Performed On: 06/01/2013 13:20 CDT by DIANNE LONDON integrity manager Chief Complaint : Medicare Initial Annual Wellness [...] Given By : Patient Languages : Wolof DIANNE LONDON RN - 06/01/2013 13:20 CDT [...] LONDON RN - 06/01/2013 13:20 CDT Source: [employer] Document Id: [id number] CDT!35 documented in this encounter Plan of Treatment Not on filedocumented as of this encounter Visit Diagnoses Not on filedocumented in this encounter Additional Health Concerns Assessment Noted Time PHQ-9 Depression Total Score: 1 06/01/2013 1:42 PM CDT documented as of this encounter
--- OUTSIDE RECORDS SUMMARY | 2021-10-24 10:33 | XMS_ITS | Encounter Summary ---
:1945 Author Organization [facility] Address [address] [place] [address] Care Team Providers Name Role Phone Unavailable Primary Care Provider Unavailable Encounter Details Date Type Department Care Team Description 04/29/2012 Hospital Encounter [facility] Nicki Holt, MAL, C.N.P., D. N.P. [address] [place] [address] (Wo rk) Social History Tobacco [...] D.N.P., C.N.P. - 04/29/2012 1:50 PM CDT [id number] CHIEF COMPLAINT/REASON FOR VISIT Diabetic examination. HISTORY OF PRESENT ILLNESS The patient is a 66-year-old female who presents to the clinic today for a routine diabetic examination. Presently at this time, she is working with our health and motor coach chauffeur for her diabetes in which she thinks overall is going very well. She indicates that just in the last couple of months she thinks that she has been able to keep 5 pounds off. She is incorporating exercise into her daily activity. She also indicates that her biggest concern are diabetic lows. She is on glipizide in which she takes 2.5 mg by mouth once a day. Often I will note that the patient over corrects when her blood sugars are low, in which she indicates that when her blood sugars are low she will eat 2 small mini candy bars. She is currently working on adjusting her diet as well to more of a healthy diet. She otherwise indicates that she is not [...] and reactive to light and accommodation. OROPHARYNX: [place] and moist. TMs: Bilateral tympanic membranes are [...] to see improvement in her hemoglobin A1c justwith her incorporating exercise in her daily routine. [...] of the content Nicki Holt D.N.P./F.N.P/shi DOCID: [id number] Electronically Signed By: NICKI HOLT DNP, FNP On: 05/04/2012 07:35 PM Source: [facility] MHSDOLBEYNONRADSYS Document Id: [id number] documented in this encounter Miscellaneous Notes Miscellaneous - Nicki Holt D.N.P., C.N.P. - 04/29/2012 3:00 PM CDT Ambulatory Patient Summary [address] [address] Visit Information Name: ARCIHE BAZAN [facility] Number: [id number] Current Date: 04/29/2012 15:00:41 Physicians [...] Provider 04/30/2012 10:45 [facility] Family Med consult [facility] Health Education Sales Consultant 05/06/2012 08:45 CAM Family Med consult [facility] Health Education Sales Consultant Your Goals/Additional instructions: Source: [facility] POWERCHART Document Id: [id number] Miscellaneous - Nicki Holt D.N.P., C.N.P. - 04/29/2012 3:00 PM CDT Ambulatory Depart Summary [facility] [address] [place] [address] Visit Information Name: ARCHIE BAZAN [facility] Number: [id number] Visit Date: 04/29/2012 15:00:40 Attending [...] your provider for clarification. Additional Information: Source: [facility] POWERCHART Document Id: [id number] Miscellaneous - Nicki Holt D.N.P., C.N.P. - [...] Check : Intact Intact NICKI HOLT DNP, POCKETBOOK MAKER - 04/29/2012 14:58 CDT NICKI HOLT DNP, FNP - 04/29/2012 14:58CDT Source: [facility] POWERCHART Document Id: [id number] Miscellaneous - Vitaliy Darnell L.PJairoNJairo - 04/29/2012 1:57 PM CDT Adult Extrusion Die Corrector Intake/History Adult Extrusion Die Corrector Intake/History Entered On: 04/29/2012 14:00 CDT Performed [...] Information Given By : Patient Languages : Georgian VITALIY DARNELL LPN - 04/29/2012 13:57 CDT [...] PETRA RUSSELL LPN; Reviewed Date: 03/09/2012 13:21 EPIC MANAGER Benicar Estimated Onset Date: Unspecified ; Created By: PETRA RUSSELL LPN; Reaction Status: Active ; Category: Drug ; Substance: Benicar ; Type: Allergy ; Updated By: PETRA RUSSELL LPN; Reviewed Date: 03/09/2012 13:21 EPIC MANAGER Source: [facility] POWERCHART Document Id: [id number] documented in this encounter Plan of Treatment Not on filedocumented as of this encounter Visit Diagnoses Not on filedocumented in this encounter
--- OUTSIDE RECORDS SUMMARY | 2021-10-24 10:33 | XMS_ITS | Encounter Summary ---
:[address] [facility] Address [address] [place] [address] Care Team Providers Name Role Phone Unavailable Primary Care Provider Unavailable Encounter Details Date Type Department Care Team Description 04/29/2012 Hospital Encounter [facility]X [facility] Asha Ramon, MAL, C.N.P., D. N.P. [address] [place], [place] [phone] (Wo rk) Social History [...] by mouth daily. Take 0 with food [employer] documented as of this encounter Miscellaneous Notes Miscellaneous - Nicki Anthony, Maritza.N.P., C.N.P. - 04/30/2012 9:31 AM CDT Results Notification Document Contains Addenda Addendum by VITALIY VILLEDA LPN on 30 April 2012 09:46:08 CDT Copy sent to patient. From: NICKI ANTHONY DNP, SHINGLE WEAVER To: VITALIY VILLEDA LPN Sent: 04/30/2012 09:31:51 CDT ! Show up: 04/30/2012 14:31:51 [facility] Subject: Results Notification Actions: Note to Nurse Source: [facility] POWERCHART Document Id: [id number] Electronically signed by Conversion, [facility] Solder Technician [id number] at 07/16/2016 1:07 PM CDT documented in this encounter Plan of Treatment Not on filedocumented as of this encounter Visit Diagnoses Not on filedocumented in this encounter
--- OUTSIDE RECORDS SUMMARY | 2021-10-24 10:33 | XMS_ITS | Encounter Summary ---
:1945 Author Organization [facility] Address [address] [place] [address] Care Team Providers Name Role Phone Unavailable Primary Care Provider Unavailable Encounter Details Date Type Department Care Team Description 04/30/2012 Hospital Encounter [facility] Nicki Sosa, MAL, C.N.P., D. N.P. [address] [place] [address] (Wo rk) Social History Tobacco [...] mg by mouth daily. Take 0 with Trochet. documented as of this encounter Progress Notes Conversion, Historical Provider Ser - 04/30/2012 10:52 AM CDT [id number] HEALTH & WELLNESS COACHING REFERRING PHYSICIAN Nicki Anthony, Maritza.N.P./F.N.P. CHIEF COMPLAINT/REASON FOR VISIT Patient is seen regard to Diabetes and weight loss. This is a follow-up visit. GOAL REVIEW Goal #1: Marcial was 100% successful in managing a smaller portion size for the next week in her foodchoices. Goal #2: Was 80% successful in exercising by walking 1-mile on the treadmill, five (5) days a week. Goal #3: Researching healthy diabetic friendlier desserts was not successful. OBJECTIVE DATA Patient weighed in at 86.2 kilograms which equals 190.5 pounds. She lost 1-pound this week. FOOD CHOICES She was able to manage her foods creating a healthy carbohydrate healthy fat and a lean protein source at each meal or snack. She reported trying out a new omelet recipe and also had put her candy dishin her 's office so it wasn't in her view and has not had a single piece of candy since. Also, reported having a low blood sugar after walking. SESSION SUMMARY Patient is making healthy choices and in the experiment mode as far as creating a new menu and lifestyle plan around her eating. We talked about other healthy options using half of a piece of fruit or bagel with a little bit of almond butter or using hard boiled eggs on wheat toast rather than a sugary item right away in the morning for breakfast. She also indicated that she is feeling more energeticas she has been continuing on her exercise routine. OBSTACLES IDENTIFED 1. First object that she identified was that she feels that she may eat too many fruits which do cause her blood sugars to be elevated at times. 2. She also finds that too much sitting makes her feel lethargic and also attributes to wanting to eat more negative food choices. 3. She identified the portion size on her carbohydrates are sometimes larger than what they should be. NEW GOALS SET Goal #1: Write down all of my exercise and food journaling throughout the week until next visit. Goal #2: Continue to exercise on the treadmill five (5) days a week for 1-mile with a 5-minute cool down. Goal #3: A 1 to 2-pound deficit weekly in her weight loss goals. FOLLOW-UP PLAN We will plan on seeing the patient within a week to 2-weeks out and continue on our wellness path. Annie Millan Electronically Signed By: ANNIE PÉREZ On: 06/14/2012 11:54 AM Source: [facility] Document Id: [id number] documented in this encounter Plan of Treatment Not on filedocumented as of this encounter Visit Diagnoses Not on filedocumented in this encounter
--- OUTSIDE RECORDS SUMMARY | 2021-10-24 10:33 | XMS_ITS | Encounter Summary ---
:1945 Author Organization [facility] Address [address] [place] [address] Care Team Providers Name Role Phone Unavailable Primary Care Provider Unavailable Encounter Details Date Type Department Care Team Description 03/22/2012 Hospital Encounter [facility] Nicki Holt, MAL, C.N.P., D.N.P. [address], [place] [phone] (Wo rk) Social History [...] by mouth daily. Take 0 with food [employer] health. documented as of this encounter Miscellaneous Notes Miscellaneous - Nicki Holt, Maritza.N.P., C.N.P. - 03/22/2012 2:59 PM PROGRAM COORDINATOR Results Notification Document Contains Addenda Addendum by JOHN CONCEPCION LPN on 23 March 2012 10:08:45 PROGRAM COORDINATOR Results sent to patient via mail. From: NICKI HOLT DNP, MANAGER HUMAN [employer]ITAL To: VITALIY VILLEDA LPN Sent: 03/22/2012 14:59:45 PROGRAM COORDINATOR ! Show up: 03/22/2012 20:59:45 [facility] Subject: Results Notification Actions: Note to Nurse Source: [facility] POWERCHART Document Id: [id number] Electronically signed by Conversion, [facility] Dumper Bailer Operator [id number] at 07/16/2016 8:07 PM CDT documented in this encounter Plan of Treatment Not on filedocumented as of this encounter Procedures Procedure Name Priority Date/Time Associated Comments Diagnosis ALANINE AMINOTRANSFERASE Routine 03/22/2012 1:38 Results for this (ALT), S/P PM PROGRAM COORDINATOR procedure are i n the results section. documented in this encounter Results ALT (Alanine Aminotransferase) (03/22/2012 1:38 PM PROGRAM COORDINATOR) P athologist Signature Alanine 18 15 - 37 UL POWERCHART Amniotransferas e, LD Specimen (Source) Anatomical Collection Method Collection Time Re ceived Time Location / / Volume Laterality Blood 03/22/2012 1:38 PM PROGRAM COORDINATOR Nicki Holt APRN, C.N.P., D.N.P. LAB BLOOD ADD- ON Performing Organization Address City/State/ZIP Code Phon e Number POWERCHART documented in this encounter Visit Diagnoses Not on filedocumented in this encounter
--- OUTSIDE RECORDS SUMMARY | 2021-10-24 10:33 | XMS_ITS | Encounter Summary ---
:1945 Author Organization [facility] Address [address] [place] [address] Care Team Providers Name Role Phone Unavailable Primary Care Provider Unavailable Encounter Details Date Type Department Care Team Description 03/31/2012 Hospital Encounter HX [facility] [place] Nicik Anthony, MAL, C.N.P., D. N.P. [address] [place] [address] (Wo rk) Social History Tobacco [...] mouth daily. Take 0 with food for [employer] health. documented as of this encounter Consult Notes Conversion, Historical Provider Ser - 03/31/2012 11:01 AM CST [id number] CHIEF COMPLAINT/REASON FOR VISIT The patient was seen on 03/31/2012 for the area of diabetes. HISTORY OF PRESENT ILLNESS The patient reports being diagnosed with diabetes in 2007. Other symptoms that she experiences are visual disturbance without a headache. Some other symptoms of her diabetes includes low blood sugar ofbeing lightheaded, also feeling stressed, and doesn't like crowds. She classifies herself as a worrier. Current stage of change preparation matrix sleep she rated herself a 2-3 out of 10 (she often lies in bed until midnight and cannot sleep then wakes up early at 5 AM but does not report being tired), stress level 7/10, mood 5/10, energy 8-9/10. In addition to her diabetes, we discussed [...] healthy food choices. She is a 10/10 confidentthat she will be able to achieve this. 2. Complete the goal setting worksheet and she is a 10/10 for confidence that she will complete this. AREAS TO DISCUSS NEXT VISIT: Relaxation CD or stretching. Annie Pérez/arnol DOCID: [id number] cc: Nicki Anthony D.N.P./NereidaN.P Electronically Signed By: ANNIE PÉREZ On: 04/27/2012 06:08 PM Source: [facility] MHSDOLBEYNONRADSYS Document Id: [id number] documented in this encounter Plan of Treatment Not on filedocumented as of this encounter Visit Diagnoses Not on filedocumented in this encounter
--- OUTSIDE RECORDS SUMMARY | 2021-10-24 10:33 | XMS_ITS | Encounter Summary ---
:1945 Author Organization [facility] Address [address] [place] [address] Care Team Providers Name Role Phone Unavailable Primary Care Provider Unavailable Encounter Details Date Type Department Care Team Description 06/25/2012 Hospital Encounter HX [facility] [place] Nicki Anthony, MAL, C.N.P., D. N.P. [address] [place] [address] (Wo rk) Social History Tobacco [...] Provider Ser - 06/25/2012 3:44 PM CDT [id number] HEALTH AND WELLNESS COACHING Patient was seen at [facility] in [place] June 25, 2012, for a follow-up wellnesscoaching [...] cutting out snacks in between meals and her nighttime snacking. SESSION SUMMARY Patient is highly motivated in her action stage of behavioral change. She has been trying out different recipes and using vegetables instead of processed and refined carbs in her meal planning and alsoin her diet. She also has substituted turkey spencer instead of a hamburger and has been using fruits and vegetables as snacks instead of chips and processed foods or ice cream. She also attributes her weight loss tocutting out her snacking throughout the day and [...] weekly. Her goal range for the next 2weeks would be between 177.5 to 178.5 pound [...] diuretic and she is looking to increase her water intake for her ideal goal of 8 glasses of water a day but currently will start by reaching out to increasing her daily overall water to 1 to 2 cups additionally a day. FOLLOW-UP PLAN We will see patient in 2 weeks time and continue seeing every other week for her diabetes wellness plan. Annie Miramontes/[facility] Electronically Signed By: ANNIE MIRAMONTES On: 07/15/2012 12:02 PM Source: [facility] MHSDOLBEYNONFISH Document Id: [id number] documented in this encounter Plan of Treatment Not on filedocumented as of this encounter Visit Diagnoses Not on filedocumented in this encounter
--- OUTSIDE RECORDS SUMMARY | 2021-10-24 10:33 | XMS_ITS | Encounter Summary ---
:1945 Author Organization [facility] Address [address] [place] [address] Care Team Providers Name Role Phone Unavailable Primary Care Provider Unavailable Encounter Details Date Type Department Care Team Description 06/15/2012 Hospital Encounter [facility] Nicki Holt, MAL, C.N.P., D.N.P. [address], [place] [phone] (Wo rk) Social History [...] Letter 18 Jun 2012 ARCHIE BAZAN [address] [place] [address] [id number] Dear ARCHIE BAZAN, I am pleased to report that your results from the following diagnostic test(s) are almost normal!!!! (Your cholesterols are EXCELLENT!!!) Please follow up with us as we discussed during your visit orsooner if you have any concerns. If you [...] 4.00 - 6.00 Sincerely, NICKI HOLT [address] [id number] Electronic Signature Electronically Signed By: NICKI HOLT DNP, FNP On: 18 Jun 2012 This document has images extracted. Source: [facility] POWERCHART Document Id: [id number] documented in this encounter Plan of Treatment Not on filedocumented as of this encounter Procedures Procedure Name Priority Date/Time Associated Diagnosis Comme nts ALBUMIN, RANDOM, U Routine 06/15/2012 8:10 AM Res ults for this CDT procedure are i n the results section. LIPID PANEL, S Routine 06/15/2012 8:05 AM Results for this CDT procedure are i n the results section. HEMOGLOBIN A1C, B Routine 06/15/2012 8:05 AM Resu lts for this CDT procedure are i n the results section. documented in this encounter Results (ABNORMAL) Microalbumin, Random, Urine (06/15/2012 8:10 AM CDT) Analysis Performed At [facility] Time Signature Creatinine, 86.8 30.0 - POWERCHART [...] (06/15/2012 8:05 AM CDT) Analysis Performed At [facility] Time Signature Hemoglobin A1c, 6.96 (H) [...]
--- OUTSIDE RECORDS SUMMARY | 2021-10-24 10:33 | XMS_ITS | Encounter Summary ---
:1945 Author Organization [facility] Address [address] [place] [address] Care Team Providers Name Role Phone Unavailable Primary Care Provider Unavailable Encounter Details Date Type Department Care Team Description 07/08/2012 Hospital Encounter H[facility] [place] Nicki Anthony, MAL, C.N.P., D. N.P. [address] [place] [address] (Wo rk) Social History Tobacco [...] by mouth daily. Take 0 with food [employer] health. documented as of this encounter Progress Notes Conversion, Historical Provider Ser - 07/08/2012 8:52 AM CDT [id number] CHIEF COMPLAINT/REASON FOR VISIT Follow-up wellness coaching [...] alternatives and options. She found that doing her shopping she was able to find a turkey as an option for cheaper and also as a healthy substitute for red meat. Her exercise this week, she was [...] her and how we could plan around theseobstacles to create her successful resolves in moving [...] weeks. She wants to cut out her in between meal snacking and her after dinner snacks [...] ANNIE MIRAMONTES On: 07/15/2012 12:02 PM Source: [facility] MHSDOLBEYNONRADSYS Document Id: [id number] documented in this encounter Plan of Treatment Not on filedocumented as of this encounter Visit Diagnoses Not on filedocumented in this encounter
--- OUTSIDE RECORDS SUMMARY | 2021-10-24 10:33 | XMS_ITS | Encounter Summary ---
:1945 Author Organization [facility] Address [address] [place] [address] Care Team Providers Name Role Phone Unavailable Primary Care Provider Unavailable Encounter Details Date Type Department Care Team Description 05/20/2012 Hospital Encounter [facility] Nicki Sosa, MAL, C.N.P., D. N.P. [address] [place] [address] (Wo rk) Social History Tobacco [...] Provider Ser - 05/20/2012 3:43 PM CDT [id number] HEALTH AND WELLNESS COACHING REFERRING PHYSICIAN: Nicki Anthony, D.N.P./F.N.P. CHIEF COMPLAINT/REASON FOR VISIT The patient was seen at the [facility] in [place] on 05/20/2012 for a follow-up visit in [...] loss was unsuccessful. She actually gained 0.88 pound this week. OBJECTIVE DATA The patient indicates she [...] her own food choices. 2) It was Easter and the holidays so next time sheis thinking about planning again another healthy option [...] much she was having for serving where as she was doing before on the previous weeks. We just discussed a strategy for the next couple weeks and whatshe could move forward to do to become successful. NEW GOALS SET 1. Meal planning. She is going to create a healthy meal plan setup on Thursday or Thursday. She is 10/10 level of importance for this goal and a 9/10 confidence that she will be able to complete this. 2. Exercise. She will be doing it 5 days a week on the treadmill equaling 1 mile, or around the house if it is too muddy to get to the treadmill up in her deck area, or the bike. She is 10/10 rated this on a level of importance and a 9/10 level of confidence. 3. She will listen to the relaxation CD 3 times a week. She indicates this is a 10/10 of importanceand a 9/10 confident that she will be able to complete this. FOLLOW-UP PLAN We will plan to see the patient in the next 1 to 2 weeks and continue on with our sessions. Annie Pérez/shi Electronically Signed By: ANNIE PÉREZ On: 06/14/2012 11:54 AM Source: [facility] MHSDOLBEYNONRADSYS Document Id: [id number] documented in this encounter Plan of Treatment Not on filedocumented as of this encounter Visit Diagnoses Not on filedocumented in this encounter
--- OUTSIDE RECORDS SUMMARY | 2021-10-24 10:33 | XMS_ITS | Encounter Summary ---
:1945 Author Organization [facility] Address [address] [place] [address] Care Team Providers Name Role Phone Unavailable Primary Care Provider Unavailable Encounter Details Date Type Department Care Team Description 04/08/2012 Hospital Encounter HX [facility] [place] Nicki Anthony, MAL, C.N.P., D. N.P. [address] [place] [address] (Wo rk) Social History Tobacco [...] Provider Ser - 04/08/2012 8:51 AM CST [id number] HEALTH AND WELLNESS COACHING Followup visit: Today we discussed the patient's goal successes. She was 100% successful in her goals. She lost 1 to2 pounds in the last week and she [...] and her thyroid. We discussed some new goals for the week. HEALTHY GOALS FOR THE WEEK: 1. Create a healthy meal planning menu which she would write down and then share with me next week. 2. Walk 5 to 10 minutes each day. She rated both these goals at 10/10 confidence level. Annie Almonte DOCID: [id number] Electronically Signed By: SE ABEBA GALAN, INBOX LEA02 On: 07/05/2014 02:05 PM Source: [facility] Document Id: [id number] Addendum by SE ABEBA GALAN, INBOX LEA02 on 05 Jul 2014 14:05 CDT [facility] administratively closed. Provider on longer with facility. Report filed unsigned. Modified by and Electronically Signed by: SE ABEBA GALAN, INBOX LEA02 On: 07/05/2014 02:05 PM Source: [facility] POWERCHART Document Id: [id number] documented in this encounter Plan of Treatment Not on filedocumented as of this encounter Visit Diagnoses Not on filedocumented in this encounter
--- OUTSIDE RECORDS SUMMARY | 2021-10-24 10:33 | XMS_ITS | Encounter Summary ---
:1945 Author Organization [facility] Address [address] [place] [address] Care Team Providers Name Role Phone Unavailable Primary Care Provider Unavailable Encounter Details Date Type Department Care Team Description 04/22/2012 Hospital Encounter [facility] Nicki Holt, MAL, C.N.P., D.N.P. [address], [place] [phone] (Wo rk) Social History [...] by mouth daily. Take 0 with food [employer]. documented as of this encounter Miscellaneous Notes Miscellaneous - Nicki Holt, D.N.P., C.N.P. - 04/26/2012 12:38 PM CDT Results Notification Document Contains Addenda Addendum by VITALIY VILLEDA LPN on 26 April 2012 13:47:07 CDT Copy of results sent to patient. From: NICKI HOLT DNP, SUPERVISOR BILLPOSTING To: VITALIY VILLEDA LPN Sent: 04/26/2012 12:38:51 CDT ! Show up: 04/26/2012 17:38:51 [facility] Subject: Results Notification Actions: Note to Nurse Source: [facility] POWERCHART Document Id: [id number] Electronically signed by Conversion, [facility] Counter Stitcher [id number] at 07/16/2016 1:07 PM CDT documented in this encounter Plan of Treatment Not on filedocumented as of this encounter Procedures Procedure Name Priority Date/Time Associated Comments Diagnosis THYROID-STIMULATING Routine 04/22/2012 3:28 PM Re sults for this HORMONE-SENSITIVE [facility] procedure are in (S-TSH) the results section. CREATININE WITH Routine 04/22/2012 3:28 PM Result s for this EGFR, S/P [facility] procedure are i n the results section. documented in this encounter Results (ABNORMAL) Creatinine with eGFR (04/22/2012 3:28 PM [facility]) athologist Signature Creatinine 0.94 0.60 - 1.30 POWERCHART MGDL HXeGFR (MDRD) 59 (L) >=60 POWERCHART [id number] Comment: A GFR of <60 mL/min is indicative of chr onic kidney disease. (MDRD calculation valid on patients 18 - 70 years.) eGFR Black/ >60 >=60 [id number] POWERCHART Specimen (Source) Anatomical Collection Method Collection Time Re ceived Time Location / / Volume Laterality Blood 04/22/2012 3:28 PM [facility] Nicki Holt APRN, C.N.P., D.N.P. LAB BLOOD ADD- ON Performing Organization Address City/State/ZIP Code Phon e Number POWERCHART Thyroid-Stimulating Hormone-Sensitive (s-TSH) (04/22/2012 3:28 PM [facility]) athologist Signature TSH 4.87 0.30 - 5.00 POWERCHART (Thyrotropin) MCIUML Specimen (Source) Anatomical Collection Method Collection Time Re ceived Time Location / / Volume Laterality Blood 04/22/2012 3:28 PM [facility] Nicki Holt APRN, C.N.P., D.N.P. LAB BLOOD ADD- ON Performing Organization Address City/State/ZIP Code Phon e Number POWERCHART documented in this encounter Visit Diagnoses Not on filedocumented in this encounter
--- OUTSIDE RECORDS SUMMARY | 2021-10-24 10:33 | XMS_ITS | Encounter Summary ---
:1945 Author Organization [facility] Address [address] [place] [address] Care Team Providers Name Role Phone Unavailable Primary Care Provider Unavailable Encounter Details Date Type Department Care Team Description 05/06/2012 Hospital Encounter [facility] Nicki Sosa, MAL, C.N.P., D. N.P. [address] [place] [address] (Wo rk) Social History Tobacco [...] Provider Ser - 05/06/2012 8:58 AM CDT [id number] HEALTH AND WELLNESS COACHING REFERRING PHYSICIAN: Nicki Anthony, D.N.P./F.N.P CHIEF COMPLAINT/REASON FOR VISIT The patient was seen at the [facility] in [place] on 05/06/2012. The patient is here for a return visit. Her overall goal is diabetes management and weight loss. GOAL REVIEW 1. The patient was 100% successful in writing down all of her food and exercise for the week. 2. She was 100% successful in exercising 5 days a week. 3. Goal of 1 to 2 pound deficit weekly was 100% successful and actually lost a total amount of 2.89pounds. She attributed this to not having as many snacks and also lessen the amount of nuts in her diet. OBJECTIVE DATA Weight is 85.1 kg, 187.61 [...] options and also really watching her diet and continuing to monitor her feelings and symptoms. She also indicated that she had had a migraine withouta headache, an ocular vision disturbance, but then did her relaxation CD and it seemed to help quitea bit, and still did her treadmill later on in the day. NEW GOALS The patient has set the following goals for the next week: 1. A goal of a 1 to 2 pound deficit in her weight loss weekly. 2. Continue with the exercise plan of 5 days a week for 1 mile with a 5-minute cool down and addingin possibly a second exercise spot during the day if possible and if she feels so inclined. 3. Relaxation CD twice a week in the afternoons. As a bonus, she is interested in picking up some kind of the protein/low sugar bars like the KIND bar or ARUN bar at the [facility]. FOLLOW-UP PLAN Will follow-up with patient in 1 to 2 weeks time and continue on with her wellness plan. Annie Pérez/[facility] Electronically Signed By: ANNIE PÉREZ On: 06/14/2012 11:54 AM Source: [facility] MHSDOLBEYNONRADSYS Document Id: [id number] documented in this encounter Plan of Treatment Not on filedocumented as of this encounter Visit Diagnoses Not on filedocumented in this encounter
--- OUTSIDE RECORDS SUMMARY | 2021-10-24 10:33 | XMS_ITS | Encounter Summary ---
:1945 Author Organization [facility] Address [address] [place] [address] Care Team Providers Name Role Phone Unavailable Primary Care Provider Unavailable Encounter Details Date Type Department Care Team Description 07/22/2012 Hospital Encounter HX [facility] [place] Nicki Anthony, MAL, C.N.P., D. N.P. [address] [place] [address] (Wo rk) Social History Tobacco [...] Provider Ser - 07/22/2012 10:09 AM CDT [id number] HEALTH AND WELLNESS COACHING The patient was seen at [facility] in [place] on the date of 07/22/2012 around the [...] ANNIE MIRAMONTES On: 08/23/2012 10:33 AM Source: [facility] MHSDOLBEYNONRADSYS Document Id: [id number] documented in this encounter Plan of Treatment Not on filedocumented as of this encounter Visit Diagnoses Not on filedocumented in this encounter
--- OUTSIDE RECORDS SUMMARY | 2021-10-24 10:33 | XMS_ITS | Encounter Summary ---
:1945 Author Organization [facility] Address [address] [place] [address] Care Team Providers Name Role Phone Unavailable Primary Care Provider Unavailable Encounter Details Date Type Department Care Team Description 07/29/2012 Hospital Encounter HX [facility] [place] Nicki Anthony, MAL, C.N.P., D. N.P. [address] [place] [address] (Wo rk) Social History Tobacco [...] Provider Ser - 07/29/2012 8:56 AM CDT [id number] HEALTH AND WELLNESS COACHING The patient was seen at [facility] in [place] on 07/29/2012 for follow-up wellness coaching [...] and considers this also an obstacle for her success. She also made a connection of having more salt in the last week. They did have Luis's. Although it was with turkey she still felt that the salt intake was higher than what she normally takes in a daily week. When discussing her stress level this week, she noted that it was up the last week and that when she is stressed and upset she sometimes feels like she has a nervous energy and the need for grabbing something. She also identified that she was emotional eating as she did have some bad news around some family issues. She did [...] friends, doing gratitude and prayer this week tomanage her emotions and stress level. She also wants to get in some walking along with healthy meals. 3. Do her relaxation CD at least 3 times during the week. FOLLOW-UP PLAN We will see patient next week and continue to move forward in her goals. Annie Miramontes/[facility] Electronically Signed By: ANNIE MIRAMONTES On: 08/23/2012 10:34 AM Source: [facility] MHSDOLBEYNONRADSYS Document Id: [id number] documented in this encounter Plan of Treatment Not on filedocumented as of this encounter Visit Diagnoses Not on filedocumented in this encounter
--- OUTSIDE RECORDS SUMMARY | 2021-10-24 10:33 | XMS_ITS | Encounter Summary ---
:1945 Author Organization [facility] Address [address] [place] [address] Care Team Providers Name Role Phone Unavailable Primary Care Provider Unavailable Encounter Details Date Type Department Care Team Description 06/10/2012 Hospital Encounter HX [facility] [place] Nicki Anthony, MAL, C.N.P., D. N.P. [address] [place] [address] (Wo rk) Social History Tobacco [...] mouth daily. Take 0 with food for [employer] health. documented as of this encounter Progress Notes Conversion, Historical Provider Ser - 06/10/2012 9:52 AM CDT [id number] HEALTH & WELLNESS COACHING CHIEF COMPLAINT/REASON FOR VISIT The patient was seen at [facility] in [place] on 06/10/2012 for a follow-up wellness coaching [...] healthy replacements around having an open faced sandwichand using less of bread and carbs. She also reported making sure to pull all of her food on her plate before beginning to eat and also was [...] planning for the week with her as that was highly successful in balance their meals and having fun doing it as well. FOLLOWUP PLAN We will see patient next week and continue to see weekly for the next 4 weeks. Annie Miramontes/arnol cc: Nicki Anthony D.N.P./Stanislav.N.P Electronically Signed By: ANNIE MIRAMONTES On: 06/14/2012 11:52 AM Source: [facility] MHSDOLBEYNONRADSYS Document Id: [id number] documented in this encounter Plan of Treatment Not on filedocumented as of this encounter Visit Diagnoses Not on filedocumented in this encounter
--- OUTSIDE RECORDS SUMMARY | 2021-10-24 10:33 | XMS_ITS | Encounter Summary ---
:1945 Author Organization [facility] Address [address] [place] [address] Care Team Providers Name Role Phone Unavailable Primary Care Provider Unavailable Encounter Details Date Type Department Care Team Description 08/12/[address] [facility] [place] Nicki Anthony, MAL, C.N.P., D. N.P. [address] [place] [address] (Wo rk) Social History Tobacco [...] Provider Ser - 08/12/2012 8:56 AM CDT [id number] HEALTH AND WELLNESS COACHING The patient was seen at [facility] in [place] on 08/12/2012 for a follow-up wellness coaching [...] rotator cuff. She has reached out to [facility] for a massage on her shoulder and will continue to follow-up with that doing alternative healthcare. The patient is interested in losing a total goal of 20 pounds ideally at the weight of 170 pounds. She is going to do this through eating better food choices, eating less portion size and also walking more, also using movement when she is hungry [...] ANNIE PÉREZ On: 08/23/2012 10:34 AM Source: [facility] MHSDOLBEYNONRADSYS Document Id: [id number] documented in this encounter Plan of Treatment Not on filedocumented as of this encounter Visit Diagnoses Not on filedocumented in this encounter
--- OUTSIDE RECORDS SUMMARY | 2021-10-24 10:33 | XMS_ITS | Encounter Summary ---
:1945 Author Organization [facility] Address [address] [place] [address] Care Team Providers Name Role Phone Unavailable Primary Care Provider Unavailable Encounter Details Date Type Department Care Team Description 04/15/2012 Hospital Encounter HX [facility] [place] Nicki Anthony, MAL, C.N.P., D. N.P. [address] [place] [address] (Wo rk) Social History Tobacco [...] by mouth daily. Take 0 with food [facility]. documented as of this encounter Progress Notes Conversion, Historical Provider Ser - 04/15/2012 8:44 AM CST [id number] HEALTH AND WELLNESS COACHING Followup visit: The [...] to the other facility where she walks onthe treadmill. She estimated she walked about 3/4 mile on the treadmill when she did walk 3 to 4 days and was successful in doing some [...] that it can. 2. Go to the [employer] to do her treadmill or walk indoors again. For the treadmill, her goal is todo one mile 3 times a week and if she cannot do that to walk 15 minutes every day indoors or outdoors if the weather permits. She is currently in action stage and is very motivated. Annie Almonte DOCID: [id number] Electronically Signed By: SE ABEBA GALAN INBOX LEA02 On: 07/05/2014 02:04 PM Source: [facility]ONSDOL[facility] Document Id: [id number] Addendum by SE ABEBA GALAN INCRAIG LEA02 on 05 Jul 2014 14:04 CDT [facility] administratively closed. Provider on longer with facility. Report filed unsigned. Modified by and Electronically Signed by: SE ABEBA GALAN INBOX LEA02 On: 07/05/2014 02:04 PM Source: [facility] POWERCHART Document Id: [id number] documented in this encounter Plan of Treatment Not on filedocumented as of this encounter Visit Diagnoses Not on filedocumented in this encounter
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
--- OUTSIDE RECORDS SUMMARY | 2021-10-24 10:33 | XMS_ITS | Encounter Summary ---
:1945 Author Organization [facility] Address [address] [place] [address] Care Team Providers Name Role Phone Unavailable Primary Care Provider Unavailable Encounter Details Date Type Department Care Team Description 06/03/2012 Hospital Encounter HX [facility] Nicki Sosa, MAL, C.N.P., D. N.P. [address] [place] [address] (Wo rk) Social History Tobacco [...] Provider Ser - 06/03/2012 3:44 PM CDT [id number] HEALTH & WELLNESS COACHING REFERRING PHYSICIAN Maritza Lucas.N.P./F.N.P CHIEF COMPLAINT/REASON FOR VISIT Today, patient was seen on 06/03/2012 in the [facility] for wellness coaching around the area of [...] has had no panic attacks in the last 3-weeks. She attributes this to doing regular exercise, eating better, managing her blood sugar levelsand also listening to her relaxation CDs. SESSION SUMMARY Patient described that she has been able to be back on point with her exercise as her foot is feeling much better. She also went to the chiropractor for that. She is very motivated in taking care of her Diabetes care and discussed her motivation around really wanting to bump up her healthy food and drink choices this week. NEW GOALS SET Goal [...] ANNIE PÉREZ On: 06/14/2012 11:54 AM Source: [facility] MHSDOLBEYNONRADSYS Document Id: [id number] documented in this encounter Miscellaneous Notes Miscellaneous - Vitaliy Darnell L.P.N. - 06/03/2012 7:23 AM CDT Meaningful Use Influenza Exclusion Meaningful Use Influenza Exclusion Entered On: 06/03/2012 7:23 CDT Performed On: 06/03/2012 7:23 CDT by VITALIY DARNELL LPN Influenza Vaccine Exclusion Influenza Vaccine Exclusion : Patient declined VITALIY DARNELL LPN - 06/03/2012 7:23 CDT Source: [facility] POWERCHART Document Id: [id number] CDT!3 documented in this encounter Plan of Treatment Not on filedocumented as of this encounter Visit Diagnoses Not on filedocumented in this encounter
--- OUTSIDE RECORDS SUMMARY | 2021-10-24 10:33 | XMS_ITS | Encounter Summary ---
:1945 Author Organization [facility] Address [address] [place] [address] Care Team Providers Name Role Phone Unavailable Primary Care Provider Unavailable Encounter Details Date Type Department Care Team Description 04/22/2012 Hospital Encounter [facility] [place] Nicki Anthony, MAL, C.N.P., D. N.P. [address] [place] [address] (Wo rk) Social History Tobacco [...] by mouth daily. Take 0 with food [employer] [facility]. documented as of this encounter Progress Notes Conversion, Historical Provider Ser - 04/22/2012 3:30 PM CST [id number] HEALTH & WELLNESS COACHING REFERRING PHYSICIAN: Nicki Anthony, D.N.P./F.N.P. The patient was 100% successful for both of her goals, goal #1 of making healthy meal options and substitutions. Also 100% successful in achieving her walking and moving every day and also three times a week on the treadmill in the [employer]. Today we discussed some other obstacles that came along the way. She said that she has a bowl of candy that is out. She also enjoys desserts when she meets with her group of lady friends and prefers carbs and sweets. A possible idea that we had come up with was to move the candy bowl that she has for visitors and her children to Alex's office so it is out ofsight for her and still available for other people and guests and then also to have a diet iced tea instead of a dessert or candy when she has the need for sugar. She also came up with an idea of a half of an apple with 1-2 tablespoons of peanut butter as a snack if she feels again like she would likesomething sweet after a meal. She feels that sometimes she is curious of whether her blood pressure may be getting too low. I did speak with Nicki in regard to this and let her know about the patient's concern. We also looked at when she is in social settings what possible strategies she could use other than having sweets. 1. She identified to have a smaller portion of whatever it was. 2. She could opt for coffee instead. 3. Bring a health option to share rather than indulging in something that isn't as good for her. She also reports that she made a chicken chilli and then froze leftovers for later. She also tried out the Turkish yogurt and also the Yoplait Turkish yogurt. She also experimented with avocado with a little bit of salt and pepper on a bagel. Her blood sugar is normal and her weight is current. No loss this week. Her goal for the next week would be to lose 1-2 pounds a week and ongoing. She will be doingthis through: Goal #1 which is smaller portion [...] in a week's time. Annie Jeter DOCID: [id number] cc: Nicki Anthony D.N.P./Elmer Electronically Signed By: SE ABEBA GALAN, INBOX [email or web address] On: 07/05/2014 01:48 PM Source: [facility] Document Id: [id number] Addendum by SE ABEBA GALAN, INBOX [email or web address] on 05 Jul 2014 13:49 CDT [facility] administratively closed. Provider on longer with facility. Report filed unsigned. Modified by and Electronically Signed by: SE ABEBA GALAN, INBOX LEA02 On: 07/05/2014 01:49 PM Source: [facility]OWER[facility] Document Id: [id number] documented in this encounter Plan of Treatment Not on filedocumented as of this encounter Visit Diagnoses Not on filedocumented in this encounter
--- OUTSIDE RECORDS SUMMARY | 2021-10-24 10:33 | XMS_ITS | Encounter Summary ---
:1945 Author Organization [facility] Address [address] [place] [address] Care Team Providers Name Role Phone Unavailable Primary Care Provider Unavailable Encounter Details Date Type Department Care Team Description 03/09/2012 Hospital Encounter HX [facility] Nicki Holt, MAL, C.N.P., D.N.P. [address] [place], [place] [address] (Wo rk) Social History [...] by mouth daily. Take 0 with food [employer]. documented as of this encounter Miscellaneous Notes Miscellaneous - Nicki Holt, D.N.P., C.N.P. - 03/11/2012 3:52 PM GARNETT FIXER Results Notification Document Contains Addenda Addendum by ROBERT JIANG RN on 11 March 2012 16:23:40 GARNETT [employer]ER Letter mailed to patient. From: NICKI HOLT DNP, RIPSHEAR OPERATOR To: ROBERT JIANG RN Sent: 03/11/2012 15:52:35 GARNETT FIXER ! Show up: 03/11/2012 21:52:35 RUST Subject: Results Notification Actions: Note to Nurse Source: [facility] POWERCHART Document Id: [id number] Electronically signed by Conversion, [facility] Government Operations Consultant [id number] at 07/16/2016 9:06 PM CDT documented in this encounter Plan of Treatment Not on filedocumented as of this encounter Procedures Procedure Name Priority Date/Time Associated Comments Diagnosis LIPID PANEL, S Routine 03/09/2012 2:35 PM Results for this [facility]AR[facility]ER procedure are i n the results section. ELECTROLYTE PANEL, S Routine 03/09/2012 2:35 PM R esults for this [facility]AR[facility] procedure are i n the results section. THYROID-STIMULATING Routine 03/09/2012 2:35 PM Re sults for this HORMONE-SENSITIVE [facility]ER procedure are in (S-TSH) the results section. HEMOGLOBIN A1C, B Routine 03/09/2012 2:35 PM Resu lts for this [facility]AR[facility] FIXER procedure are i n the results section. documented in this encounter Results (ABNORMAL) Thyroid-Stimulating Hormone-Sensitive (s-TSH) (03/09/2012 2:35 PM GARNETT FIXER) Analysis Performed At Patho logist Time Signature TSH 6.99 (H) 0.30 - 5.00 POWERCHART (Thyrotropin) MCIUML Specimen (Source) Anatomical Collection Method Collection Time Re ceived Time Location / / Volume Laterality Blood 03/09/2012 2:35 PM GARNET[employer] [facility]ER Nicki Holt APRN, C.N.P., D.N.P. LAB BLOOD ADD- ON Performing Organization Address City/State/ZIP Code Phon e Number POWERCHART (ABNORMAL) Hemoglobin A1c (03/09/2012 2:35 PM GARNETT FIXER) Analysis Performed At Patho logis Time Signature Hemoglobin A1c, 7.45 (H) 4.00 - POWERCHART B 6.00 Specimen (Source) Anatomical Collection Method Collection Time Re ceived Time Location / / Volume Laterality Blood 03/09/2012 2:35 PM [facility]ARNET[facility]ER Nicki Holt APRN, C.N.P., D.N.P. LAB BLOOD ADD- ON Performing Organization Address City/State/ZIP Code Phon e Number POWERCHART Electrolyte Panel (03/09/2012 2:35 PM GARNETT FIXER) P athologist Signature Sodium, S 139.8 135.0 - POWERCHART 145.0 MML Potassium, S 4.0 3.6 - 4.8 POWERCHART MMOLL Chloride, S 102 100 - 108 POWERCHART MMOLL CO2 Total 27.0 23.0 - 29.0 POWERCHART MMOLL Anion Gap 11 10 - 20 POWERCHART MMOLL Specimen (Source) Anatomical Collection Method Collection Time Re ceived Time Location / / Volume Laterality Blood 03/09/2012 2:35 PM [facility]ARNETT FIXER Deana Mojica APRN.N.P., D.N.P. LAB BLOOD ADD- ON Performing Organization Address City/[facility] Phon e Number POWERCHART (ABNORMAL) Lipid Panel (03/09/2012 2:35 PM GARNETT FIXER) P athologist Signature Cholesterol, 208 (H) 0 [...] / Volume Laterality Blood 03/09/2012 2:35 PM GARNETT [facility]ER Nicki Holt APRN C.N.P., D.N.P. LAB BLOOD ADD- ON Performing Organization Address City/State/ZIP Code Phon e Number POWERCHART documented in this encounter Visit Diagnoses Not on filedocumented in this encounter
--- OUTSIDE RECORDS SUMMARY | 2021-10-24 10:34 | XMS_ITS | Encounter Summary ---
:[address] [facility] Address [address] [place] [address] Care Team Providers Name Role Phone Unavailable Primary Care Provider Unavailable Encounter Details Date Type Department Care Team Description 06/11/2011 Hospital Encounter HX NO MAPPING Dandy Mccarthy P.T. [address] [place], [place] [phone] Social History Tobacco Use [...] Mccarthy PKeanu. - 06/11/2011 12:00 AM CDT [id number] Message left on pt's voice confirmed voice mail. Source: [facility] RWHXTRANSXRTFSYS Document Id: [id number] Electronically signed by Sae [facility] Cylinder Die Machine Helper [id number] at 07/19/2016 7:59 PM CDT documented in this encounter Plan of Treatment Not on filedocumented as of this encounter Visit Diagnoses Not on filedocumented in this encounter
--- OUTSIDE RECORDS SUMMARY | 2021-10-24 10:34 | XMS_ITS | Encounter Summary ---
:1945 Author Organization [facility] Address [address] [place] [address] Care Team Providers Name Role Phone Unavailable Primary Care Provider Unavailable Encounter Details Date Type Department Care Team Description 05/28/2011 Hospital Encounter HX NO MAPPING Dandy Mccarthy, P.T. [address] [place], [place] [phone] Social History Tobacco Use [...]
--- OUTSIDE RECORDS SUMMARY | 2021-10-24 10:34 | XMS_ITS | Encounter Summary ---
:1945 Author Organization [facility] Address [address] [place] [address] Care Team Providers Name Role Phone Unavailable [...]
--- OUTSIDE RECORDS SUMMARY | 2021-10-24 10:34 | XMS_ITS | Encounter Summary ---
:1945 Author Organization [facility] Address [address] [place] [address] Care Team Providers Name Role Phone Unavailable Primary Care Provider Unavailable Encounter Details Date Type Department Care Team Description 12/05/2011 Hospital Encounter HX [facility] Nicki Anthony APRN, C.N.P., D.N.P. [address] [place], [place] [phone] (Wo rk) Social History [...] HEMOGLOBIN A1C, B Routine 12/05/2011 8:00 AM Resu lts for this CDT procedure are i n the results section. documented in this encounter Results (ABNORMAL) Hemoglobin A1c (12/05/2011 8:00 AM CDT) Analysis Performed At [facility] averat Time Signature Hemoglobin A1c, 7.46 (H) 4.00 [...]
--- OUTSIDE RECORDS SUMMARY | 2021-10-24 10:34 | XMS_ITS | Encounter Summary ---
:1945 Author Organization [facility] Address [address] [place] [address] Care Team Providers Name Role Phone Unavailable Primary Care Provider Unavailable Encounter Details Date Type Department Care Team Description 05/20/2011 Hospital Encounter [facility] Tona Colon M.D. Social History Tobacco [...] Colon M.D. - 05/20/2011 2:00 PM CDT [id number] MS. Adams was sent by Singh Pearl NP From [place] for a consult to evaluate incontinence. HPI: She is a 65 year old Obstetric History T0 TAB0 SAB1 E0 M0 L2 with No LMP recorded. Patient is postmenopausal. She has been having trouble with leaking urine and her bladder dropping. MOLD LAMINATOR HX: no abn paps, no infections, She recently had trouble with kidney stones and had more troublewith leaking but now that it is gone [...] the kidney stone is gone. The problem tends to go in streaks and at times she [...] Negative ENT: Negative GI: Negative BREAST: Negative MOLD LAMINATOR: Negative CV: Negative PULMONARY: Negative MUSCULOSKELETAL: Negative [...] Oriented, with normal affect and appropriate mood Can Striper Exam: Lymph: no enlarged groin nodes External [...] to Singh Olivas NP for review. Source: [facility] RWHXTRANSXRTFSYS Document Id: [id number] Electronically signed by Sae [facility] [employer]oelectron[employer] Engineer [id number] at 07/19/2016 11:54 AM CDT documented in this encounter Plan of Treatment Not on filedocumented as of this encounter Visit Diagnoses Not on filedocumented in this encounter
--- OUTSIDE RECORDS SUMMARY | 2021-10-24 10:34 | XMS_ITS | Encounter Summary ---
:1945 Author Organization [facility] Address [address] [place] [address] Care Team Providers Name Role Phone Unavailable Primary Care Provider Unavailable Encounter Details Date Type Department Care Team Description 04/28/2011 Hospital Encounter HX [facility] Vickey Holt, MAL, C.N.P., D. N.P. [address] [place] [address] (Wo rk) Social History Tobacco [...] general anesthesia. Information sent to Daniela Yates, stenographer secretary to Dr. Carl Correa at [facility] Department of Urology. CHIEF COMPLAINT 1) Followup [...] x 3. HEAD: Normocephalic/atraumatic. PUPILS: GENE. OROPHARYNX: Lolo and moist. TMs: Bilateral TMs are clear, [...] given information regarding renal calculi from the [facility] site. We will plan on [...] DNP, FNP On: 05/05/2011 06:36 PM Source: [facility] Document Id: [id number] CHIEF COMPLAINT 1) Followup ER visit. 2) [...] x 3. HEAD: Normocephalic/atraumatic. PUPILS: GENE. OROPHARYNX: Lolo and moist. TMs: Bilateral TMs are clear, [...] given information regarding renal calculi from the [facility] Education site. We will plan on referring [...] DNP, FNP On: 04/29/2011 11:21 AM Source: [facility]SDOLBEYNONRADSYS Document Id: [id number] documented in this encounter Nursing Notes Conversion, Historical Provider Ser - 04/29/2011 3:54 PM CDT Referrals 1. Referral to Urology @ [facility]. Urology Dept will triage and let pt know appt time & place. 2. Referral to Dr. Colon - NUTRITION INTERN - @ [facility]. Appt scheduled for 05-07-11 @ 0830 - report time (appt@ 0845). Pt informed of date, time & place of appt. Electronically Signed By: DIANNE AMADOR LPN On: 05/01/2011 04:03 PM Source: [facility] [employer] Document Id: [id number] documented in this encounter Miscellaneous Notes Miscellaneous - Vickey Holt D.N.P., C.N.P. - 04/28/2011 8:33 AM CDT Ambulatory Patient Summary [id number] [place] [address] Visit Information Name: MARCIAL BAZAN Current Date: [...] PILL PO THREE TIMES PER DAY NEEDED FORPAIN metformin (metformin 1000 mg oral tablet, extended [...] No Appointments found Your Goals/Additional instructions: Source: [facility] [employer]OWERCHART Document Id: [id number] Miscellaneous - Vickey Holt D.N.P., C.N.P. - 04/28/2011 8:33 AM CDT Ambulatory Depart Summary [address] [address] Visit Information Name: MARCIAL BAZAN Visit Date: [...] PILL PO THREE TIMES PER DAY NEEDED FORPAIN metformin (metformin 1000 mg oral tablet, extended [...] clarification. Additional Information: Yes - . Source: [facility] POWERCHART Document Id: [id number] Miscellaneous - Sylvia Darnell L.P.N. - 04/28/2011 7:57 AM CDT Adult Veterinary X Ray Operator Intake/History Document Has Been Updated Adult Veterinary X Ray Operator Intake/History Entered On: 04/28/2011 8:01 CDT Performed On: 04/28/2011 7:57 CDT by SYLVIA DARNELL LPN Intake Chief Complaint : Feels like everything is going to fall out of sarah area, No bleeding, getting worse Thursday seen in ER for Kidney stone SYLVIA DARNELL LPN - 04/28/2011 8:01 CDT Onset of Symptoms : x2-3wks Temperature Core : 36.0C(Converted to: 96.8DegF) (LOW) Peripheral Pulse Rate : 88/min Respiratory Rate : 16/min Heart Rhythm : Regular Systolic Blood Pressure : 120mmHg Diastolic Blood Pressure : 56mmHg NIBP Mean : 77mmHg BP Location : Left upper extremity Blood Pressure Cuff Size : Regular DARNELLSYLVIA LPN - 04/28/2011 7:57 CDT Subjective Pain Symptoms : No SYLVIA DARNELL LPN - 04/28/2011 7:57 CDT Dependent Habits Tobacco Use/Currently Using : No Exposure to Tobacco Smoke : Care provider denies smoking in home Smoking Status : Never smoker Alcohol Use : No SYLVIA DARNELL LPN - 04/28/2011 7:57 CDT Caffeine Use Grid Caffeine Use : Current Type : Tea Frequency : Occasionally SYLVIA DARNELL LPN - 04/28/2011 7:57 CDT Recreational Drug Use Grid Drug Use : None SYLVIA DARNELL LPN - 04/28/2011 7:57 CDT Allergy Allergies [...] LPN; Reviewed Date: 04/28/2011 7:57 CDT Source: [facility] [employer] Document Id: [id number]!3 documented in this encounter Plan of Treatment Not on filedocumented as of this encounter Visit Diagnoses Not on filedocumented in this encounter
--- OUTSIDE RECORDS SUMMARY | 2021-10-24 10:34 | XMS_ITS | Encounter Summary ---
:1945 Author Organization [facility] Address [address] [place] [address] Care Team Providers Name Role Phone Unavailable Primary Care Provider Unavailable Encounter Details Date Type Department Care Team Description 06/25/2011 Hospital Encounter HX NO MAPPING Dandy Mccarthy P.T. [address] [place], [place] [address] Social History Tobacco Use [...] encounter Progress Notes Adriane Mccarthy PKeanu. - 06/25/2011 12:00 AM CDT [id number] Message left on pt's voice confirmed voice mail with PT contact information. Source: [facility] RWHXTRANSXRTFSYS Document Id: [id number] Electronically signed by [facility] Wine Bottle Inspector [id number] at 07/19/2016 5:59 PM CDT documented in this encounter Plan of Treatment Not on filedocumented as of this encounter Visit Diagnoses Not on filedocumented in this encounter
--- OUTSIDE RECORDS SUMMARY | 2021-10-24 10:34 | XMS_ITS | Encounter Summary ---
:1945 Author Organization [facility] Address [address] [place] [id number] Care Team Providers Name Role Phone Unavailable Primary Care Provider Unavailable Encounter Details Date Type Department Care Team Description 04/26/[address] [facility] Julian Culver M.D. [id number] [place] [address] [phone] (Wo rk) Social History Tobacco Use Types [...] Comments Blood Pressure 167/78 04/26/2011 7:31 PM ECO INDUSTRIAL DEVELOPMENT CONSULTANT Pulse 74 04/26/2011 7:31 PM ECO INDUSTRIAL DEVELOPMENT CONSULTANT Temperature - - Respiratory Rate 16 04/26/2011 7:31 PM ECO INDUSTRIAL DEVELOPMENT CONSULTANT Oxygen Saturation - - Inhaled Oxygen Concentration - - Weight 86 kg (189 lb 9.5 oz) 04/26/2011 7:31 PM ECO INDUSTRIAL DEVELOPMENT CONSULTANT Height - - Body Mass Index - - documented in this encounter Discharge Summaries David Fisher R.N. - 04/26/2011 11:07 PM CST ED Discharge Instructions [facility] [address] [place] [address] Name: MARCIAL BAZAN Date of : 1945 12:00 AM Visit Date: 04/26/2011 7:11 PM Address: [address] [place] [phone] Primary Care Provider: VICKEY HOLT DNP, BOILER MAKER IMPORTANT: [facility] in [place] would like to thank you for allowing us to assist you with your healthcare needs. The following includes patient education materials and informationregarding your injury/illness. Chief Complaint: PAIN ON LEFT SIDE Follow-Up Instructions: With: Address: When: USE A STRAINER TO CATCH THE STONE AND SAVE FOR STONE ANALYSIS Within As Needed Comments: With: Address: When: VICKEY HOLT [address] [place] [address] Business (1) In 7 days 05/03/2011 Comments: Patient Education Materials: [id number] KIDNEY STONE (w/ colic) The sharp cramping [...] 8 hours and increasing bladder pressure ?? [phone] [employer], [address] [place] [address]. All rights reserved. This information is not [...] arrange a ride home with a responsible alliance party. I, MARCIAL BAZAN , or responsible alliance party have received this information and my questions havebeen answered. I have discussed any challenges I [...] arrange a ride home with a responsible alliance party. BENI Matta LURENE MURIEL , or responsible alliance party have received this information and my questions havebeen answered. I have discussed any challenges I see with this plan with the nurse or physician. Patient Signature or Responsible Libertarian/Relationship Date/Time Provider Signature Date/Time This document has images extracted. Please consider using [employer] for all your patient education needs. Source: [facility] POWERCHART Document Id: [id number] INDUSTRIAL DEVELOPMENT CONSULTANT David Fisher R.N. - 04/26/2011 11:07 PM CST ED Depart Summary [facility] Emergency Department Clinical Discharge Summary PERSON INFORMATION Name MARCIAL BAZAN Age 65 Years 1945 12:00 AM Sex Female Language Bhutanese PCP VICKEY HOLT DNP, BOILER MAKER Marital Status Visit Id Visit Reason PAIN ON LEFT SIDE Specialty Enc Type Emergency Med Service Emergency Medicine Referred by Track Group [facility] ED Discharge 04/26/2011 11:07 PM Tracking Id [id number] Checkout 04/26/2011 11:07 PM Checkin 04/26/2011 7:11 PM Acuity 4 -Less Urgent Dispo Type * Discharged to Home or Self Care Arrival 04/26/2011 7:11 PM Reg Status LOS 000 03:56 Address: [address] [place] [phone] Comment: PROVIDER INFORMATION Provider Role Provider Contact Time DAVID FISHER CORNER CUTTER MACHINE OPERATOR Nurse 04/26/11 19:31 JERMAN ARIAS MD ED Provider 04/26/11 19:51 DIAGNOSIS Urination painful; Colic*; Kidney stone NOS; Abdominal pain Comment: PATIENT EDUCATION INFORMATION Instructions: KIDNEY STONE w/ Colic Follow up: With: Address: When: USE A STRAINER TO CATCH THE STONE AND SAVE FOR STONE ANALYSIS Within As Needed Comments: With: Address: When: VICKEY HOLT [address] [place] [address] Business (1) In 7 days 05/03/2011 Comments: Source: [facility] POWERCHART Document Id: [id number] INDUSTRIAL DEVELOPMENT CONSULTANT documented in this encounter Nursing Notes David Fisher R.N. - 04/26/2011 10:47 PM CST ED Pain Assessment ED Pain Assessment Entered On: 04/26/2011 22:48 ECO INDUSTRIAL DEVELOPMENT CONSULTANT Performed On: 04/26/2011 22:47 ECO INDUSTRIAL DEVELOPMENT CONSULTANT by DAVID FISHER RN Pain Assessment Pain Symptoms : Yes Pain Medication Requested : Yes DAVID FISHER RN - 04/26/2011 22:47 ECO INDUSTRIAL DEVELOPMENT CONSULTANT Source: [facility] BandPageCHART Document Id: [id number] ECO INDUSTRIAL DEVELOPMENT CONSULTANT!4 INDUSTRIAL DEVELOPMENT CONSULTANT David Fisher R.N. - 04/26/2011 7:31 PM CST ED Primary Assessment ED Primary Assessment Entered On: 04/26/2011 19:41 ECO INDUSTRIAL DEVELOPMENT CONSULTANT Performed On: 04/26/2011 19:31 ECO INDUSTRIAL DEVELOPMENT CONSULTANT by DAVID FISHER RN Reason For Visit Problems(Active) Anxiety disorder NOS Name of Problem: Anxiety disorder NOS ; Onset Date: 1987 ; Recorder: PETRA RUSSELL LPN; Confirmation: Confirmed ; Classification: Nursing ; Code: 1231 ; Contributor System: PowerChart ; Last Updated: 03/19/2010 16:21 ECO INDUSTRIAL DEVELOPMENT CONSULTANT ; Life Cycle Date: 03/19/2010 ; Life Cycle Status: Active ; Responsible Provider: PETRA RUSSELL LPN; Vocabulary: ICD-9-CM Hyperlipidemia/Dyslipidemia Name of Problem: Hyperlipidemia/Dyslipidemia ; Onset Date: 2004 ; Recorder: PETRA RUSSELL LPN; Confirmation: Confirmed ; Classification: Nursing ; Code: 1231 ; Contributor System: PowerChart ; Last Updated: 03/19/2010 16:15 ECO INDUSTRIAL DEVELOPMENT CONSULTANT ; Life Cycle Date: 03/19/2010 ; Life Cycle Status: Active ; Responsible Provider: PETRA RUSSELL LPN; Vocabulary: ICD-9-CM NIDDM [non-insulin dependent diabetes mellitus] Name of Problem: NIDDM [non- insulin dependent diabetes mellitus] ; Onset Date: 2007 ; Recorder: PETRA RUSSELL LPN; Confirmation: Confirmed ; Classification: Nursing ; Code: 1231 ; Contributor System: PowerChart ; Last Updated: 03/19/2010 16:14 ECO INDUSTRIAL DEVELOPMENT CONSULTANT ;Life Cycle Date: 03/19/2010 ; Life Cycle Status: Active ; Responsible Provider: PETRA RUSSELL LPN; Vocabulary: ICD-9-CM Osteoarthritis Name of Problem: Osteoarthritis ; Recorder: PETRA RUSSELL LPN; Confirmation: Confirmed ; Classification: Nursing ; Code: 1231 ; Contributor System: PowerChart ; Last Updated: 03/19/2010 16:17 ECO INDUSTRIAL DEVELOPMENT CONSULTANT ; Life Cycle Date: 03/19/2010 ; Life Cycle Status: Active ; Responsible Provider: PETRA RUSSELL LPN; Vocabulary: ICD-9-CM ; Comments: 01/07/2011 9:57 - VICKEY HOLT DNP, BOILER MAKER date of onset unknown Osteoporosis NOS Name of Problem: Osteoporosis NOS ; Recorder: PETRA RUSSELL LPN; Confirmation:Confirmed ; Classification: Nursing ; Code: 1231 ; Contributor System: PowerChart ; Last Updated: 03/19/2010 16:17 ECO INDUSTRIAL DEVELOPMENT CONSULTANT ; Life Cycle Date: 03/19/2010 ; Life Cycle Status: Active ; Responsible Provider: PETRA RUSSELL LPN; Vocabulary: ICD-9-CM ; Comments: 01/07/2011 10:08 - VICKEY HOLT DNP, BOILER MAKER date of onset unknown Rosacea Name of Problem: Rosacea ; Onset Date: 2006 ; Recorder: PETRA RUSSELL LPN; Confirmation: Confirmed ; Classification: Nursing ; Code: 1231 ; Contributor System: PowerChart ; Last Updated: 03/19/2010 16:18 ECO INDUSTRIAL DEVELOPMENT CONSULTANT ; Life Cycle Date: 03/19/2010 ; Life Cycle Status: Active ; Responsible Provider:PETRA RUSSELL LPN; Vocabulary: ICD-9-CM TIA [Transient ischemic attack] Name of Problem: TIA [Transient ischemic attack] ; Onset Date: 2007 ; Recorder: PETRA RUSSELL LPN; Confirmation: Confirmed ; Classification: Nursing ; Code: 1231 ; Contributor System: PowerChart ; Last Updated: 03/19/2010 16:19 ECO INDUSTRIAL DEVELOPMENT CONSULTANT ; Life Cycle Date: 03/19/2010 ; Life Cycle Status: Active ; Responsible Provider: PETRA RUSSELL LPN; Vocabulary: ICD-9-CM Diagnoses(Active) Urination painful Date: 04/26/2011 ; Diagnosis Type: Reason For Visit ; Confirmation: Complaint of ;Clinical Dx: Urination painful ; Classification: Medical ; Clinical Service: Emergency medicine ; Code: PNED ; Probability: 0 ; Diagnosis Code: [id number] Triage Chief Complaint Description : 65 yr bruno presents with possible UTI, admits to left flank reveles that radiates to the abdomen . Pt states she has had perineal pressure for 2 weeks or so . Information Given By : Patient Accompanied By : Spouse Mode of Arrival ED : Private vehicle Track : Medical Languages : Bhutanese Vital Signs Assessed : Yes DAVID FISHER RN - 04/26/2011 19:31 ECO INDUSTRIAL DEVELOPMENT CONSULTANT Vital Signs Temperature Core : 36.4C(Converted to: [...] 189.200lb DAVID FISHER RN - 04/26/2011 19:31 ECO INDUSTRIAL DEVELOPMENT CONSULTANT Pain Assessment Pain Symptoms : Yes DAVID FISHER RN - 04/26/2011 19:31 ECO INDUSTRIAL DEVELOPMENT CONSULTANT ED Physician Notification Time ED Physician Notification Time : 04/26/2011 19:36 ECO INDUSTRIAL DEVELOPMENT CONSULTANT DAVID FISHER RN - 04/26/2011 19:31 ECO INDUSTRIAL DEVELOPMENT CONSULTANT RASHEED RASHEED Level 1 : No RASHEED Level 2 : No RASHEED Level 3 : One DAVID FISHER RN - 04/26/2011 19:31 ECO INDUSTRIAL DEVELOPMENT CONSULTANT DCP GENERIC CODE Tracking Acuity : 4 -Less Urgent Tracking Group : [facility] ED DAVID FISHER RN - 04/26/2011 19:31 ECO INDUSTRIAL DEVELOPMENT CONSULTANT Allergy Latex Reaction : No Latex Hives/Itch : No Latex Congestion/Eye Irr/Breathing : No Latex Symptom Progression : No Latex Previous Test : No DAVID FISHER RN - 04/26/2011 19:31 ECO INDUSTRIAL DEVELOPMENT CONSULTANT Allergies (Active) azithromycin Estimated Onset Date: Unspecified ; Created By: PETRA RUSSELL LPN; Reaction Status: Active ; Category: Drug ; Substance: azithromycin ; Type: Allergy ; Updated By: PETRA RUSSELL LPN; Reviewed Date: 04/17/2011 18:05 ECO INDUSTRIAL DEVELOPMENT CONSULTANT Benicar Estimated Onset Date: Unspecified ; Created By: PETRA RUSSELL LPN; Reaction Status: Active ; Category: Drug ; Substance: Benicar ; Type: Allergy ; Updated By: PETRA RUSSELL LPN; Reviewed Date: 04/17/2011 18:05 ECO INDUSTRIAL DEVELOPMENT CONSULTANT ID Screen TB Symptoms Grid Bloody Sputum : No Fatigue : No Fever : No Loss of Appetite : No Night Sweats : No Persistent Cough Greater Than 3 Weeks : No Weight Loss : No DAVID FISHER RN - 04/26/2011 19:31 ECO INDUSTRIAL DEVELOPMENT CONSULTANT Alcohol and Drug Use : No Employee [...] No DAVID FISHER RN - 04/26/2011 19:31 ECO INDUSTRIAL DEVELOPMENT CONSULTANT Syndrome Surveillance Symptoms Grid Headache : No Illness With Generalized Rash : No Muscle Pain : No New or Worsening Cough : No Shortness of Breath : No Recent Exposure to Communicable Disease : No DAVID FISHER RN - 04/26/2011 19:31 ECO INDUSTRIAL DEVELOPMENT CONSULTANT Travel Within Last 14 Days : No DAVID FISHER RN - 04/26/2011 19:31 ECO INDUSTRIAL DEVELOPMENT CONSULTANT Immunizations Pneumovac : Last 5 years Influenza : This year DAVID FISHER RN - 04/26/2011 19:31 ECO INDUSTRIAL DEVELOPMENT CONSULTANT Respiratory Airway : Patent Respirations : Unlabored Respiratory Pattern : Regular DAVID FISHER RN - 04/26/2011 19:31 ECO INDUSTRIAL DEVELOPMENT CONSULTANT Cardiovascular Heart Rhythm : Regular Skin Color : Normal for ethnicity Skin Description : Dry Skin Temperature : Warm DAVID FISHER RN - 04/26/2011 19:31 ECO INDUSTRIAL DEVELOPMENT CONSULTANT Neurological Level of Consciousness : Alert Orientation : Oriented x 3 Characteristics of Speech : Appropriate for age DAVID FISHER RN - 04/26/2011 19:31 ECO INDUSTRIAL DEVELOPMENT CONSULTANT ED Psychosocial Affect/Behavior : Calm, Cooperative, Appropriate Domestic Abuse Concerns : None DAVID FISHER RN - 04/26/2011 19:31 ECO INDUSTRIAL DEVELOPMENT CONSULTANT Domestic Violence Screen Partner Emotional/Physical Abuse Hx : No DAVID FISHER RN - 04/26/2011 19:31 ECO INDUSTRIAL DEVELOPMENT CONSULTANT Gastrointestinal Nutrition ED : Adequate DAVID FISHER RN - 04/26/2011 19:31 ECO INDUSTRIAL DEVELOPMENT CONSULTANT Musculoskeletal Fall Prevention Education Provided : NA DAVID FISHER RN - 04/26/2011 19:31 ECO INDUSTRIAL DEVELOPMENT CONSULTANT Social Habits Tobacco Use/Currently Using : No Tobacco Use/Advised to Quit : No Exposure to Tobacco Smoke : Care provider denies smoking in home Smoking Status : Never smoker DAVID FISHER RN - 04/26/2011 19:31 ECO INDUSTRIAL DEVELOPMENT CONSULTANT Alcohol Use Grid Alcohol Use : No DAVID FISHER RN - 04/26/2011 19:31 ECO INDUSTRIAL DEVELOPMENT CONSULTANT Recreational Drug Use Grid Drug Use : None DAVID FISHER RN - 04/26/2011 19:31 ECO INDUSTRIAL DEVELOPMENT CONSULTANT Source: [facility] BandPageCHART Document Id: [id number] ECO INDUSTRIAL DEVELOPMENT CONSULTANT!102 INDUSTRIAL DEVELOPMENT CONSULTANT documented in this encounter ED Notes David Fisher R.N. - 04/26/2011 11:00 PM CST ED Treatments and Procedures ED Treatments and Procedures Entered On: 04/26/2011 23:33 ECO INDUSTRIAL DEVELOPMENT CONSULTANT Performed On: 04/26/2011 23:00 ECO INDUSTRIAL DEVELOPMENT CONSULTANT by DAVID FISHER RN Peripheral IV Peripheral IV Assess/Intervention Grid Peripheral IV #1 IV Activity : Discontinue Number of Attempts : 1 Date of Insertion : 04/26/2011 ECO INDUSTRIAL DEVELOPMENT CONSULTANT IV Site : Hand Laterality : Left Catheter Size : 18 Catheter Type : Protective DAVID FISHER RN - 04/26/2011 23:32 ECO INDUSTRIAL DEVELOPMENT CONSULTANT Source: [facility] BandPageCHART Document Id: [id number] ECO INDUSTRIAL DEVELOPMENT CONSULTANT!11 INDUSTRIAL DEVELOPMENT CONSULTANT David Fisher R.N. - 04/26/2011 10:47 PM CST ED Disposition Summary ED Disposition Summary Entered On: 04/26/2011 22:47 ECO INDUSTRIAL DEVELOPMENT CONSULTANT Performed On: 04/26/2011 22:47 ECO INDUSTRIAL DEVELOPMENT CONSULTANT by DAVID FISHER RN ED Disposition Summary Accompanied By : Spouse Mode of Discharge : Ambulatory Transportation : Private vehicle Printed Discharge Instructions Given to Patient : Yes DAVID FISHER RN - 04/26/2011 22:47 ECO INDUSTRIAL DEVELOPMENT CONSULTANT Source: [facility] BandPageCHART Document Id: [id number] ECO INDUSTRIAL DEVELOPMENT CONSULTANT!6 INDUSTRIAL DEVELOPMENT CONSULTANT David Fisher R.N. - 04/26/2011 9:25 PM CST ED Treatments and Procedures ED Treatments and Procedures Entered On: 04/26/2011 23:32 ECO INDUSTRIAL DEVELOPMENT CONSULTANT Performed On: 04/26/2011 21:25 ECO INDUSTRIAL DEVELOPMENT CONSULTANT by VAISHALI, DAVID M RN Peripheral IV Peripheral IV Assess/Intervention Grid Peripheral IV #1 IV Activity : Start Number of Attempts : 1 Date of Insertion : 04/26/2011 ECO INDUSTRIAL DEVELOPMENT CONSULTANT IV Site : Hand Laterality : Left Catheter Size : 18 Catheter Type : Protective Site Condition : No complications Drainage Description : None DAVID FISHER RN - 04/26/2011 23:31 ECO INDUSTRIAL DEVELOPMENT CONSULTANT Source: [facility] POWERCHART Document Id: [id number] ECO INDUSTRIAL DEVELOPMENT CONSULTANT!13 INDUSTRIAL DEVELOPMENT CONSULTANT Jerman Arias M.D. - 04/26/2011 7:51 PM CST Urination painful Patient: MARCIAL BAZAN Age: 65 years Sex: Female : 1945 Author: JERMAN ARIAS MD Attachments: None Associated Diagnosis: Abdominal pain Basic Information Additional information:: Chief Complaint from Nursing Triage Note : Chief Complaint Description. 04/26/2011 19:31 ECO INDUSTRIAL DEVELOPMENT CONSULTANT Chief Complaint Description 65 yr bruno presents with possible UTI, admits toleft flank reveles that radiates to the abdomen . Pt states she has had perineal pressure for 2 weeks orso . History of Present Illness The patient presents with dysuria andoff an on .. The onset was 14 days ago. The course/duration of symptoms is fluctuating in intensity. Radiating pain: Left side of the back had pain today , that started in her back and left flank area and radiated to the left groin. moderately severe pain lasted for about two hours prior to coming to the ER . flank. The character of symptoms is dull. The degree atonset was severe and 10 /10. . The degree at present is moderate. Exacerbating factors consist of movement. The relieving factor is rest. Risk factors consist of diabetes mellitus hypertension. Therapytoday: none. Associated symptoms: nausea, abdominal pain, back pain, pelvic pain, Patient denies anyhistory of rectal or vaginal prolapse, feels like of nad on pressure in thepelvic area , last colonoscopy within 3 years ., also complains of pressure whiile urinating. , denies fever, denies chills, denies vomiting, denies hematuria, denies urethral discharge, no rash, denies diarrhea and not voidingsmall amounts. Review of Systems Constitutional symptoms: Fever. [...] bleeding tendency negative bruising tendency negative, no petechiae,no gum bleeding. Allergy/immunologic symptoms: no seasonal allergies [...] or recorded. Surgical history: Surgical history. Colonoscopy ([id number]) in 2008 at 63 Years. Comments: 09/18/2010 09:23 - JOHN CONCEPCION LPN WNL Biopsy of breast ([id number]) in 1986 at 40 Years. Comments: 09/24/2010 11:37 - VICKEY HOLT DNP, BOILER MAKER date unknown Appendectomy ([id number]) in 1959 at 14 Years. History of repair of umbilical hernia ([id number]). Comments: 03/19/2010 16:22 - PETRA RUSSELL LPN Times two 1997, 2000 section ([id number]). Comments: 03/19/2010 16:23 - PETRA RUSSELL LPN [...] Examination Vital signs: Vital Signs, 04/26/2011 19:31 ECO INDUSTRIAL DEVELOPMENT CONSULTANT Temperature Core 36.4 C LOW Peripheral Pulse Rate 74 /min Respiratory Rate 16 /min SpO2 100 % Systolic Blood Pressure 167 mmHg >HHI Diastolic Blood Pressure 78 mmHg Mean Arterial Pressure 108 mmHg Measurements, 04/26/2011 19:31 ECO INDUSTRIAL DEVELOPMENT CONSULTANT Actual Weight 86 kg Oxygen saturation Oxygen Therapy & Oxygenation Information. 04/26/2011 19:31 ECO INDUSTRIAL DEVELOPMENT CONSULTANT Oxygen Therapy Room air Oxygen Saturation Monitoring Frequency Intermittent General: Alert. moderate distress. Skin: Warm Head: Normocephalic. atraumatic. Neck: Supple. trachea midline. no tenderness. Eye: Pupils are equal, round and reactive to light. extraocular movements are intact. normal conjunctiva. vision unchanged. Ears, nose, mouth and throat: Tympanic membranes clear. Oral mucosa moist. No pharyngeal erythema orexudate. Cardiovascular: Regular rate and rhythm. No murmur. [...] if Indicated (Order Processing): Stat, 04/26/2011 19:52 ECO INDUSTRIAL DEVELOPMENT CONSULTANT, Once, Urine, Clean Void UrineLaunch Orders, Laboratory: Amylase Level (Order Processing): Stat, 04/26/2011 20:03 ECO INDUSTRIAL DEVELOPMENT CONSULTANT, Once, Blood Comprehensive Metabolic Panel (Order Processing): Stat, 04/26/2011 20:03 ECO INDUSTRIAL DEVELOPMENT CONSULTANT, Once, Blood CBC (includes Auto Differential) (Order Processing): Stat, 04/26/2011 20:03 ECO INDUSTRIAL DEVELOPMENT CONSULTANT, Once, BloodLaunch Orders, Radiology: XR Abdomen 2 Views (Order Processing): 04/26/2011 20:03 ECO INDUSTRIAL DEVELOPMENT CONSULTANT, PAIN LEFT FLANK AND PELVIC PRESSURE, Stat, Patient Bed, OnceLaunch Orders, Radiology: CT Abdomen/Pelvis w/ contrast (Order Processing): 04/26/2011 20:51 ECO INDUSTRIAL DEVELOPMENT CONSULTANT, ABDOMINAL AND PELVIC PAIN RULE OUT ACUETE DIVERTICULITIS, Stat, Patient Bed, OnceLaunch Orders. Pharmacy: ketorolac (Order Processing): 30 mg, IV Push, Once Results review:Lab results : Lab View. 04/26/2011 20:00 ECO INDUSTRIAL DEVELOPMENT CONSULTANT UUA Source. 04/26/2011 20:15 ECO INDUSTRIAL DEVELOPMENT CONSULTANT Hgb 11.0 g/dL LOW Hct 32.9 % LOW WBC 11.3 x10(9)/L HI RBC 3.67 x10(9)/L LOW MCV 90 fL RDW 13.5 % Platelet 207 x10(9)/L Neutro % 75.3 % Lymph % 16.1 % LOW Hardy % 6.1 % Eos % 2.1 % Baso % 0.4 % Neutro Absolute 8.50 10(9)/L HI Lymph Absolute 1.82 x10(9)/L Hardy Absolute 0.69 x10(9)/L Eos Absolute 0.24 x10(9)/L [...] Hgb A1c 7.49 % HI 04/26/2011 20:00 ECO INDUSTRIAL DEVELOPMENT CONSULTANT UA Color Yellow UA Spec Grav >=1.030 [...] from flowsheet : Vital Signs, 04/26/2011 19:31 ECO INDUSTRIAL DEVELOPMENT CONSULTANT Temperature Core 36.4 C LOW Peripheral Pulse [...] 05/03/2011. Counseled: Patient, Family. Electronically Signed By: JERMAN ARIAS MD On: 04/26/2011 10:46 PM Modified by and Electronically Signed by: JERMAN ARIAS MD On: 04/26/2011 09:04 PM This document has images extracted. Source: [facility] POWERCHART Document Id: [id number]} INDUSTRIAL DEVELOPMENT CONSULTANT documented in this encounter Miscellaneous Notes Miscellaneous - David Fisher RJairoN. - 04/26/2011 10:48 PM CST Valuables/Belongings Valuables/Belongings Entered On: 04/26/2011 22:48 ECO INDUSTRIAL DEVELOPMENT CONSULTANT Performed On: 04/26/2011 22:48 ECO INDUSTRIAL DEVELOPMENT CONSULTANT by DAVID FISHER RN Valuables/Belongings Home Medication Disposition : None brought in with patient DAVID FISHER RN - 04/26/2011 22:48 ECO INDUSTRIAL DEVELOPMENT CONSULTANT Source: [facility] BandPageCHART Document Id: [id number] ECO INDUSTRIAL DEVELOPMENT CONSULTANT!3 INDUSTRIAL DEVELOPMENT CONSULTANT Miscellaneous - David Fisher R.N. - 04/26/2011 7:11 PM CST Facility Charge Ticket Facility Charge Ticket Entered On: 04/26/2011 22:49 ECO INDUSTRIAL DEVELOPMENT CONSULTANT Performed On: 04/26/2011 19:11 ECO INDUSTRIAL DEVELOPMENT CONSULTANT by DAVID FISHER RN Facility Charge TVL Level for Facility Charge Ticket : Level 4 [place] Total Points with Diagnosis Control : 11 [place] Visit Level : 09629 Level 4 ANIRUDH MOREL - 05/12/2011 17:29 CDT Mode of Arrival ED : Private vehicle [facility] Mode of Arrival Interpreted : Standard [facility] Process Management : None [facility] Order Management : CT/MRI/Ultrasound, Xray - plain films, Lab tests 30 Minutes Critical Care : No [place] Nursing Assessment : Triage and 1-2 nursing assessments [facility] Disposition : Discharge DAVID FISHER RN - 04/26/2011 22:49 ECO INDUSTRIAL DEVELOPMENT CONSULTANT Chief Complaint 8.50.02 Reason For Visit Category : Genitourinary ED Chief Complaint Genitourinary 8.5 : Flank pain TVL Calc : 12 TVL for Facility Charge Ticket Dx : Level 4 DAVID FISHER RN - 04/26/2011 22:49 ECO INDUSTRIAL DEVELOPMENT CONSULTANT Source: [facility] POWERCHART Document Id: [id number]!5 documented in this encounter Plan of Treatment Not on filedocumented as of this encounter Procedures Procedure Name Priority Date/Time Associated Comments Diagnosis AUTOMATED Routine 04/26/2011 8:15 PM Results f or this DIFFERENTIAL, B ECO INDUSTRIAL DEVELOPMENT CONSULTANT procedure ar e in the results section. CBC WITH DIFFERENTIAL, Routine 04/26/2011 8:15 PM Results for this B ECO INDUSTRIAL DEVELOPMENT CONSULTANT procedure are i n the results section. HEMOGLOBIN A1C, B Routine 04/26/2011 8:15 PM Resu lts for this ECO INDUSTRIAL DEVELOPMENT CONSULTANT procedure are i n the results section. AMYLASE, TOT, S Routine 04/26/2011 8:15 PM Result s for this ECO INDUSTRIAL DEVELOPMENT CONSULTANT procedure are i n the results section. COMPREHENSIVE Routine 04/26/2011 8:15 PM Results for this METABOLIC PANEL, S/P ECO INDUSTRIAL DEVELOPMENT CONSULTANT procedu re are in the results section. URINALYSIS, ROUTINE Routine 04/26/2011 8:00 PM Re sults for this ECO INDUSTRIAL DEVELOPMENT CONSULTANT procedure are i n the results section. documented in this encounter Results (ABNORMAL) Automated Differential (04/26/2011 8:15 PM ECO INDUSTRIAL DEVELOPMENT CONSULTANT) [facility] Method Time Signature Neutro % 75.3 42.0 - POWERCHART 77.0 Lymphocytes % 16.1 (L) 23.0 - POWERCHART 44.0 HX Hardy % 6.1 2.0 - 11.0 POWERCHART HX [...] / Volume Laterality Blood 04/26/2011 8:15 PM 2 8:15 ECO INDUSTRIAL DEVELOPMENT CONSULTANT PM ECO INDUSTRIAL DEVELOPMENT CONSULTANT Jerman Arias M.D. LAB BLOOD ADD-ON Performing Organization Address City/State/ZIP Code Phon e Number POWERCHART (ABNORMAL) CBC with Differential (04/26/2011 8:15 PM ECO INDUSTRIAL DEVELOPMENT CONSULTANT) Patholo gist Method Time Signature Leukocytes 11.3 [...] / Volume Laterality Blood 04/26/2011 8:15 PM ECO INDUSTRIAL DEVELOPMENT CONSULTANT Jerman Arias M.D. LAB BLOOD ADD-ON Performing Organization Address City/State/ZIP Code Phon e Number POWERCHART (ABNORMAL) Hemoglobin A1c (04/26/2011 8:15 PM ECO INDUSTRIAL DEVELOPMENT CONSULTANT) Analysis Performed At Patho logist Time Signature Hemoglobin A1c, 7.49 (H) 4.00 - POWERCHART B 6.00 Specimen (Source) Anatomical Collection Method Collection Time Re ceived Time Location / / Volume Laterality Blood 04/26/2011 8:15 PM ECO INDUSTRIAL DEVELOPMENT CONSULTANT Jerman Arias M.D. LAB BLOOD ADD-ON Performing Organization Address City/State/ZIP Code Phon e Number POWERCHART Amylase, Total (04/26/2011 8:15 PM ECO INDUSTRIAL DEVELOPMENT CONSULTANT) P athologist Signature Amylase, Total, 48 25 - 115 UL POWERCHART S Specimen (Source) Anatomical Collection Method Collection Time Re ceived Time Location / / Volume Laterality Blood 04/26/2011 8:15 PM ECO INDUSTRIAL DEVELOPMENT CONSULTANT Jerman Arias M.D. LAB BLOOD ADD-ON Performing Organization Address City/State/ZIP Code Phon e Number POWERCHART (ABNORMAL) CMP (Comprehensive Metabolic Panel) (04/26/2011 8:15 PM ECO INDUSTRIAL DEVELOPMENT CONSULTANT) Patholo gist Method Time Signature Alanine 18 [...] - 18 POWERCHART Nitrogen), S MGDL Creatinine 1.04 0.60 - POWERCHART 1.30 MGDL Calcium, Total, S 9.3 8.5 - POWERCHART 10.1 MGDL BUN/Creatinine Ratio 16.0 10.0 - POWERCHAR T 20.0 Anion Gap 9 (L) 10 - 20 POWERCHART MMOLL HXeGFR (MDRD) 53 <=61 POWERCHART [id number] 2 Comment: A GFR of <60 mL/min [...] / Volume Laterality Blood 04/26/2011 8:15 PM ECO INDUSTRIAL DEVELOPMENT CONSULTANT Jerman Arias M.D. LAB BLOOD ADD-ON Performing Organization Address City/State/ZIP Code Phon e Number POWERCHART Urinalysis, Routine (04/26/2011 8:00 PM ECO INDUSTRIAL DEVELOPMENT CONSULTANT) [facility] Method Time Signature HXUr Color Yellow POWERCHART Appearance Clear POWERCHART Glucose Negative POWERCHART HXBILIRUBIN Negative POWERCHART Ketones, QL(U) Trace POWERCHART Specific >=1.030 1.000 - POWERCHART [place], POCT, U 1.030 pH, POCT, Urine 5.0 5.0 - 8.0 POWERCHART Protein, Ur, Dip Negative POWERCHART Urobilinogen 0.2 POWERCHART HXNITRITE Negative POWERCHART HXBLOOD Negative POWERCHART Leukocyte Negative POWERCHART Esterase Source Clean Void POWERCHART Urine Specimen (Source) Anatomical Collection Method Collection Time Re ceived Time Location / / Volume Laterality Urine 04/26/2011 8:00 PM ECO INDUSTRIAL DEVELOPMENT CONSULTANT Jerman Arias M.D. LAB URINE ORDERABLES Performing Organization Address City/[facility]/ZIP Code Phon e Number POWERCHART documented in this encounter Visit Diagnoses Not on filedocumented in this encounter
--- OUTSIDE RECORDS SUMMARY | 2021-10-24 10:34 | XMS_ITS | Encounter Summary ---
:1945 Author Organization [facility] Address [address] [place] [address] Care Team Providers Name Role Phone Unavailable Primary Care Provider Unavailable Encounter Details Date Type Department Care Team Description 12/17/2011 Hospital Encounter HX [facility] ME Vickey Holt, MAL, C.N.P., D. N.P. [address] [place] [address] (Wo rk) Social History Tobacco [...] Luciana Steiner - 12/17/2011 3:23 PM CDT Camp Manager Intake (Adult) Camp Manager Intake (Adult) Entered On: 12/17/2011 15:26 CDT Performed On: 12/17/2011 15:23 CDT by LUCIANA STEINER belt buckle maker Program Type : Post Program Diabetes Referring Provider : JERMAN ARIAS MD Special needs : None Method Used for DSME : Individual Diabetes Type : Type 2 19 years and older Ethnicity : Chose Not to Disclose Diabetes Visit Summary : Discussed meal plan and snacks. [facility] Time Spent With Patient : [...] STEINER RN - 12/17/2011 15:23 CDT [facility] Document Id: [id number] documented in this encounter Miscellaneous Notes Miscellaneous - Luciana Steiner - 03/02/2012 4:55 PM CST Med Management Document Contains Addenda Addendum by LUCIANA STEINER RN on 05 March 2012 16:45:40 THREAD PULLING MACHINE ATTENDANT Thanks. Addendum by VICKEY HOLT DNP, FNP on 05 March 2012 11:34:50 THREAD PULLING MACHINE ATTENDANT letter dictated. Addendum by LUCIANA STEINER RN on 02 March 2012 17:40:04 THREAD PULLING MACHINE ATTENDANT From: LUCIANA STEINER RN To: VICKEY HOLT DNP, FNP; Sent: 03/02/2012 17:40:04 THREAD PULLING MACHINE ATTENDANT Subject: FW: Med Management Annabelle Caceres, I [...] DNP, FNP on 02 March 2012 17:14:09 THREAD PULLING MACHINE ATTENDANT From: VICKEY HOLT DNP, FNP To: LUCIANA STEINER RN Sent: 03/02/2012 17:14:09 THREAD PULLING MACHINE ATTENDANT Subject: RE:Med Management Approved Order Order: aspirin (aspirin 81 mg oral tablet) 1 tab(s) PO Daily Take with food for heart health. Qty: 30 tab(s) Refills: 0 Substitutions Allowed Route To Pharmacy - [facility] Signed by VICKEY HOLT DNP, FNP 03/02/2012 17:14:08 From: LUCIANA STEINER RN To: VICKEY HOLT DNP, FNP; Sent: 03/02/2012 16:55:59 THREAD PULLING MACHINE ATTENDANT Subject: Med Management Submitted: Order Order: omeprazole [...] 0 Substitutions Allowed Route To Pharmacy - [facility] Documented Discontinue Order: aspirin (aspirin 81 mg oral tablet) Signed by LUCIANA STEINER RN 03/02/2012 16:50:06 Source: [facility] Agen[employer]CHART Document Id: [id number] Electronically signed by Sae [facility] Roadability Machine Operator [id number] at 07/19/2016 11:11 PM CDT Miscellaneous - Luciana Steiner - 03/02/2012 10:45 AM CST General Message Document Contains Addenda Addendum by VICKEY HOLT DNP, FNP on 02 March 2012 12:49:58 THREAD PULLING MACHINE ATTENDANT From: VICKEY HOLT DNP, FNP To: LUCIANA STEINER RN; Sent: 03/02/2012 12:49:58 THREAD PULLING MACHINE ATTENDANT Subject: RE: General Message Addendum by VICKEY HOLT DNP, FNP on 02 March 2012 12:49:52 THREAD PULLING MACHINE ATTENDANT Monica, can you turn these into prescription [...] VICKEY HOLT DNP, FNP; Sent: 03/02/2012 10:45:30 THREAD PULLING MACHINE ATTENDANT Subject: General Message Patient would like letter stating the following OTC meds have been discussed and prescribed. She canthen submit letter and have it used as some kind of deduction. Low dose ASA, Prilosec OTC, Garlic, Fish Oil, Mucinex, Calcium. Source: [facility] POWERCHART Document Id: [id number] Electronically signed by Conversion, [facility] Roadability Machine Operator [id number] at 07/19/2016 11:11 PM CDT Miscellaneous - Robert Jiang, RJairoN. - 02/26/2012 9:10 AM CST Requesting TSH Document Contains Addenda Addendum by ROBERT JIANG RN on 26 February 2012 10:11:31 THREAD PULLING MACHINE ATTENDANT Orders pended. Addendum by VICKEY HOLT DNP, FNP on 26 February 2012 09:28:44 THREAD PULLING MACHINE ATTENDANT From: VICKEY HOLT DNP, FNP To: ROBERT JIANG RN; Sent: 02/26/2012 09:28:44 THREAD PULLING MACHINE ATTENDANT Subject: RE: Requesting TSH Addendum by VICKEY HOLT DNP, FNP on 26 February 2012 09:28:42 THREAD PULLING MACHINE ATTENDANT Yes I am fine with that, thank you. From: ROBERT JIANG RN To: VICKEY HOLT DNP, FNP; Sent: 02/26/2012 09:10:11 THREAD PULLING MACHINE ATTENDANT Subject: Requesting TSH Marcial called stating she is coming in for labs to recheck diabetes in the next couple of weeks. Shestates she has had her thyroid level checked before, has it done every now and then because she has a significant family hx of thyroid issues (mom, sister) and her level has been slightly elevated in the past. I look through labs and don't find any TSH levels in the last couple of years, but wonderingif you would approve adding a TSH to her next labs. I can place the order if you approve. Thank you. Source: [facility] POWERCHART Document Id: [id number] Electronically signed by Sae, [facility] Roadability Machine Operator [id number] at 07/19/2016 11:11 PM CDT Miscellaneous - Conversion, Historical Provider Ser - 01/29/2012 11:41 AM THREAD PULLING MACHINE ATTENDANT Med Management Document Contains Addenda Addendum by JENA BEYER V on 29 January 2012 12:33:38 THREAD PULLING MACHINE ATTENDANT called to scofields Addendum by VICKEY HOLT DNP, FNP on 29 January 2012 12:06:06 THREAD PULLING MACHINE ATTENDANT From: VICKEY HOLT DNP, FNP To: JENA BEYER V; Sent: 01/29/2012 12:06:06 THREAD PULLING MACHINE ATTENDANT Subject: RE: Med Management Addendum by VICKEY HOLT DNP, FNP on 29 January 2012 12:05:59 THREAD PULLING MACHINE ATTENDANT completed. From: JENA BEYER V To: VICKEY HOLT DNP, FNP; JENA BEYER V; Sent: 01/29/2012 11:41:03 THREAD PULLING MACHINE ATTENDANT Subject: Med Management Submitted: Order Order: alprazolam (Xanax 0.5 mg oral tablet) 1 tab(s) PO q8hr Take for anxiety. Qty: 25 tab(s) Refills: 1 Anxiety Print - [id number] Signed by JENA BEYER V 01/29/2012 11:40:18 [facility] shows this was filled 08/20/10 when last written Source: [employer] Document Id: [id number] Miscellaneous - Conversion, Historical Provider Ser - 01/29/2012 11:39 AM THREAD PULLING MACHINE ATTENDANT simvastatin From: JEAN BEYER V Sent: 01/29/2012 11:39:15 THREAD PULLING MACHINE ATTENDANT Subject: simvastatin 30 day refill of simvastatin sent to [facility] per protocol. Orders have been pended already. LVM for pt to schedule labs/visit prior to next refill request Source: [employer] Document Id: [id number] documented in this encounter Plan of Treatment Not on filedocumented as of this encounter Visit Diagnoses Not on filedocumented in this encounter
--- OUTSIDE RECORDS SUMMARY | 2021-10-24 10:34 | XMS_ITS | Encounter Summary ---
:1945 Author Organization [facility] Address [address] [place] [address] Care Team Providers Name Role Phone Unavailable [...]
--- OUTSIDE RECORDS SUMMARY | 2021-10-24 10:34 | XMS_ITS | Encounter Summary ---
:1945 Author Organization [facility] Address [address] [place] [address] Care Team Providers Name Role Phone Unavailable Primary Care Provider Unavailable Encounter Details Date Type Department Care Team Description 01/16/2011 Hospital Encounter HX [facility] Vickey Holt, MAL, Deana.N.P., D. N.P. [address] [place] [address] (Wo rk) Social History Tobacco [...] Maritza.N.P., C.N.P. - 01/16/2011 12:00 AM CST [id number] CHIEF COMPLAINT/REASON FOR VISIT 1. Routine physical. [...] x 3. HEAD: Normocephalic/atraumatic. PUPILS: GENE. OROPHARYNX: [place] and moist. TMs: Bilateral TMs are clear, [...] DNP, FNP On: 01/27/2011 11:30 AM Source: [facility] MHSDOLBEYNONRADSYS Document Id: [id number] PLANT SUPERVISOR documented in this encounter Miscellaneous Notes Miscellaneous - Vickey Holt D.N.Kvng, C.N.P. - 01/16/2011 9:11 PM BULK PLANT SUPERVISOR Ambulatory Patient Summary [id number] [place] [address] Visit Information Name: MARCIAL BAZAN Current Date: [...] No Appointments found Your Goals/Additional instructions: Source: [facility] POWERCHART Document Id: [id number] PLANT SUPERVISOR Miscellaneous - Vickey Holt, D.N.P., C.N.P. - 01/16/2011 9:11 PM BULK PLANT SUPERVISOR Ambulatory Depart Summary [id number] [place] [address] Visit Information Name: MARCIAL BAZAN Current Date: 01/16/2011 21:11:06 Primary Care Provider: VICKEY HOLT DNP, CYBER WORKFORCE DEVELOPER AND MANAGER MARCIAL BAZAN has been given the following [...] to the patient and/or family, guardian/caregiver. Source: [facility] POWERCHART Document Id: [id number] PLANT SUPERVISOR Miscellaneous - Vickey Holt, Maritza.N.P., C.N.P. - 01/16/2011 9:11 PM BULK PLANT SUPERVISOR Quality Measures Quality Measures Entered On: 01/16/2011 21:11 BULK PLANT SUPERVISOR Performed On: 01/16/2011 21:11 BULK PLANT SUPERVISOR by VICKEY HOLT DNP, FNP Diabetes Date of Last Foot Exam : 01/16/2011 BULK PLANT SUPERVISOR VICKEY HOLT DNP, FNP - 01/16/2011 21:11 BULK PLANT SUPERVISOR Foot Exam Grid Left foot exam Right foot exam Dorsalis Pedis Pulse : Normal Normal Post Tibial Pulse : Normal Normal Capillary Refill : Less than 3 seconds Less than 3 seconds 10 gm Monofilament Sensation Check : Intact Intact VICKEY HOLT DNP, [facility] - 01/16/2011 21:11 BULK PLANT SUPERVISOR VICKEY HOLT DNP, [facility] - 01/16/2011 21:11CST Source: [employer] Document Id: [id number] BULK PLANT SUPERVISOR!14 PLANT SUPERVISOR Miscellaneous - Sylvia Darnell LJairoP.N. - 01/16/2011 9:25 AM CST Health Assessment Health Assessment Entered On: 01/16/2011 9:25 BULK PLANT SUPERVISOR Performed On: 01/16/2011 9:25 BULK PLANT SUPERVISOR by SYLVIA DARNELL LPN Nutrition Nutrition Risk Factors by History Adult : None SYLVIA DARNELL LPN - 01/16/2011 9:25 BULK PLANT SUPERVISOR Functional Current Daily Living Assistance : None SYLVIA DARNELL LPN - 01/16/2011 9:25 BULK PLANT SUPERVISOR Dependent Habits Tobacco Use/Currently Using : No Exposure to Tobacco Smoke : Care provider denies smoking in home Smoking Status : Never smoker SYLVIA DARNELL LPN - 01/16/2011 9:25 BULK PLANT SUPERVISOR Caffeine Use Grid Caffeine Use : Current Type : Tea Frequency : Occasionally SYLVIA DARNELL LPN - 01/16/2011 9:25 BULK PLANT SUPERVISOR Recreational Drug Use Grid Drug Use : None SYLVIA DARNELL LPN - 01/16/2011 9:25 BULK PLANT SUPERVISOR Psychosocial Domestic Abuse Concerns : None SYLVIA DARNELL LPN - 01/16/2011 9:25 BULK PLANT SUPERVISOR Advance Directive Advanced Directives : No SYLVIA DARNELL LPN - 01/16/2011 9:25 BULK PLANT SUPERVISOR Educ Needs Learning Style Preference Adult Grid Patient : None Family : None SYLVIA DARNELL LPN - 01/16/2011 9:25 BULK PLANT SUPERVISOR [email or web address] Document Id: [id number] BULK PLANT SUPERVISOR!25 PLANT SUPERVISOR Miscellaneous - Sylvia Darnell L.P.N. - 01/16/2011 9:16 AM CST Adult Wedding Makeup Artist Intake/History Adult Wedding Makeup Artist Intake/History Entered On: 01/16/2011 9:24 BULK PLANT SUPERVISOR Performed On: 01/16/2011 9:16 BULK PLANT SUPERVISOR by SYLVIA DARNELL LPN Intake Chief Complaint [...] 90.20kg SYLVIA DARNELL LPN - 01/16/2011 9:16 BULK PLANT SUPERVISOR Subjective Pain Symptoms : No SYLVIA ADRNELL LPN - 01/16/2011 9:16 BULK PLANT SUPERVISOR Dependent Habits Tobacco Use/Currently Using : No Tobacco Use/Last 12 months : No Exposure to Tobacco Smoke : Care provider denies smoking in home Smoking Status : Never smoker Alcohol Use : No SYLVIA DARNELL LPN - 01/16/2011 9:16 BULK PLANT SUPERVISOR Caffeine Use Grid Caffeine Use : Current Type : Tea Frequency : Occasionally SYLVIA DARNELL LPN - 01/16/2011 9:16 BULK PLANT SUPERVISOR Recreational Drug Use Grid Drug Use : None SYLVIA DARNELL LPN - 01/16/2011 9:16 BULK PLANT SUPERVISOR Allergy Allergies (Active) azithromycin Estimated Onset Date: Unspecified ; Created By: PETRA RUSSELL LPN; Reaction Status: Active ; Category: Drug ; Substance: azithromycin ; Type: Allergy ; Updated By: PETRA RUSSELL LPN; Reviewed Date: 01/16/2011 9:05 BULK PLANT SUPERVISOR Benicar Estimated Onset Date: Unspecified ; Created By: PETRA RUSSELL LPN; Reaction Status: Active ; Category: Drug ; Substance: Benicar ; Type: Allergy ; Updated By: PETRA RUSSELL LPN; Reviewed Date: 01/16/2011 9:05 BULK PLANT SUPERVISOR Source: [facility] POWERCHART Document Id: [id number] BULK PLANT SUPERVISOR!30 PLANT SUPERVISOR documented in this encounter Plan of Treatment Not on filedocumented as of this encounter Procedures Procedure Name Priority Date/Time Associated Diagnosis Comme nts THINPREP SCREEN HPV Routine 01/16/2011 10:30 AM R esults for this REFLEX BULK PLANT SUPERVISOR procedure are i n the results section. documented in this encounter Results ThinPrep Screen HPV Reflex (01/16/2011 10:30 AM BULK PLANT SUPERVISOR) [facility] Method Time Signature Interpretation [id number] POWERCHART HXThPrep Scrn See Comment POWERCHART [facility] Comment: A. ??ThinPrep Pap Test Screen (Cervical/ Endocervical HPV Reflex): Satisfactory for evaluation. Negative for intraepithelial lesion or m alignancy. HXThPrep Scrn [facility] See Comment [facility] Comment: Report electronically signed by BLANCA Pinto(ASCP) 01/20/2011 16:53 Interpreted by: BLANCA Pinto(ASCP) [facility] See Comment POWERCHART Comment: A. ??ThinPrep Pap Test Screen (Cervical/ Endocervical HPV Reflex): Received cloudy specimen in ThinPrep via l. Test Performed by: [facility] Dpt of Lab Med and Pathology [address] [place] [address] Sports Medicine Physician: Donovan calderon III, M.D. Specimen (Source) Anatomical Collection Method Collection Time Re ceived Time Location / / Volume Laterality Cervix/Endocervix 01/16/2011 10:30 AM BULK PLANT SUPERVISOR Vickey Holt APRN, C.N.P., D.N.P. LAB PAP PATHDX ORDERABLES Performing Organization Address City/State/ZIP Code Phon e Number POWERCHART documented in this encounter Visit Diagnoses Not on filedocumented in this encounter
--- OUTSIDE RECORDS SUMMARY | 2021-10-24 10:34 | XMS_ITS | Encounter Summary ---
:1945 Author Organization [facility] Address [address] [place] [address] Care Team Providers Name Role Phone Unavailable Primary Care Provider Unavailable Encounter Details Date Type Department Care Team Description 03/31/2011 Hospital Encounter [facility]X [facility] ME Nicki Holt, MAL, C.N.P., D. N.P. [address] [place] [address] (Wo rk) Social History Tobacco [...] Comments Blood Pressure 126/62 03/31/2011 8:32 AM GROUP TESTER Pulse 64 03/31/2011 8:32 AM GROUP TESTER Temperature - - Respiratory Rate 18 03/31/2011 8:32 AM GROUP TESTER Oxygen Saturation - - Inhaled Oxygen Concentration - - Weight 88.9 kg (195 lb 15.8 oz) 03/31/2011 8:32 AM GROUP TESTER Height - - Body Mass Index - - documented in this encounter Progress Notes Nicki Holt, D.N.P., C.N.P. - 03/31/2011 12:00 AM CST [id number] CHIEF COMPLAINT/REASON FOR VISIT Sinus congestion. HISTORY [...] has been taking some Mucinex and Sudafed [id number] as directed on package on an as [...] DNP, FNP On: 04/01/2011 03:01 PM Source: [facility] MHSDOLBEYNONRADSYS Document Id: [id number] P TESTER documented in this encounter Miscellaneous Notes Miscellaneous - Nicki Holt D.N.P., C.N.P. - 03/31/2011 8:47 AM GROUP TESTER Ambulatory Patient Summary [address] [address] Visit Information Name: ARCHIE BAZAN Current Date: [...] No Appointments found Your Goals/Additional instructions: Source: [facility] POWERCHART Document Id: [id number] P TESTER Miscellaneous - Nicki Holt, D.N.P., C.N.P. - 03/31/2011 8:47 AM GROUP TESTER Ambulatory Depart Summary [address] [address] Visit Information Name: ARCHIE BAZAN Current Date: [...] to the patient and/or family, guardian/caregiver. Source: [facility] POWERCHART Document Id: [id number] P TESTER Miscellaneous - Diana Cardoza L.P.N. - 03/31/2011 8:34 AM CST Health Assessment Health Assessment Entered On: 03/31/2011 8:34 GROUP TESTER Performed On: 03/31/2011 8:34 GROUP TESTER by DIANA CARDOZA LPN Health Assessment Complete Health Assessment Complete or Modified : Annual Health Assessment Annual Health Assessment Completed : Yes DIANA CARDOZA LPN - 03/31/2011 8:34 GROUP TESTER Nutrition Nutrition Risk Factors by History Adult : None DIANA CARDOZA LPN - 03/31/2011 8:34 GROUP TESTER Functional Current Daily Living Assistance : None DIANA CARDOZA LPN - 03/31/2011 8:34 GROUP TESTER Dependent Habits Tobacco Use/Currently Using : No Tobacco Use/Last 12 months : No Tobacco Use/Advised to Quit : No Exposure to Tobacco Smoke : Care provider denies smoking in home Smoking Status : Never smoker DIANA CARDOZA LPN - 03/31/2011 8:34 GROUP TESTER Caffeine Use Grid Caffeine Use : Current Type : Tea Frequency : Occasionally DIANA CARDOZA LPN - 03/31/2011 8:34 GROUP TESTER Recreational Drug Use Grid Drug Use : None DIANA CARDOZA LPN - 03/31/2011 8:34 GROUP TESTER Psychosocial Domestic Abuse Concerns : None DIANA CARDOZA LPN - 03/31/2011 8:34 GROUP TESTER Advance Directive Advanced Directives : No DIANA CARDOZA LPN - 03/31/2011 8:34 GROUP TESTER Educ Needs Learning Style Preference Adult Grid Patient : None Family : None DIANA CARDOZA LPN - 03/31/2011 8:34 GROUP TESTER Source: [facility] POWERCHART Document Id: [id number] GROUP TESTER!30 P TESTER Miscellaneous - Diana Cardoza L.P.N. - 03/31/2011 8:32 AM CST Adult Electric Serviceman Intake/History Adult Electric Serviceman Intake/History Entered On: 03/31/2011 8:34 GROUP TESTER Performed On: 03/31/2011 8:32 GROUP TESTER by DIANA CARDOZA LPN Intake Chief Complaint [...] Dosing Weight Clinic : 88.90kg DIANA CARDOZA [facility] - 03/31/2011 8:32 GROUP TESTER Subjective Pain Symptoms : Yes DIANA CARDOZA LPN - 03/31/2011 8:32 GROUP TESTER Pain Pain Assessment Grid Pain 1 Location : Throat DIANA CARDOZA LPN - 03/31/2011 8:32 GROUP TESTER Dependent Habits Tobacco Use/Currently Using : No Tobacco Use/Last 12 months : No Tobacco Use/Advised to Quit : No Exposure to Tobacco Smoke : Care provider denies smoking in home Smoking Status : Never smoker DIANA CARDOZA LPN - 03/31/2011 8:32 GROUP TESTER Caffeine Use Grid Caffeine Use : Current Type : Tea Frequency : Occasionally DIANA CARDOZA [facility] - 03/31/2011 8:32 GROUP TESTER Recreational Drug Use Grid Drug Use : None DIANA CARDOZA LPN - 03/31/2011 8:32 GROUP TESTER Allergy Allergies (Active) azithromycin Estimated Onset Date: Unspecified ; Created By: PETRA RUSSELL LPN; Reaction Status: Active ; Category: Drug ; Substance: azithromycin ; Type: Allergy ; Updated By: PETRA RUSSELL LPN; Reviewed Date: 01/16/2011 9:05 GROUP TESTER Benicar Estimated Onset Date: Unspecified ; Created By: PETRA RUSSELL LPN; Reaction Status: Active ; Category: Drug ; Substance: Benicar ; Type: Allergy ; Updated By: PETRA RUSSELL LPN; Reviewed Date: 01/16/2011 9:05 GROUP TESTER Source: [facility] [employer] Document Id: [id number] GROUP TESTER!35 P TESTER documented in this encounter Plan of Treatment Not on filedocumented as of this encounter Visit Diagnoses Not on filedocumented in this encounter
--- OUTSIDE RECORDS SUMMARY | 2021-10-24 10:34 | XMS_ITS | Encounter Summary ---
:1945 Author Organization [facility] Address [address] [place] [address] Care Team Providers Name Role Phone Unavailable [...]
--- OUTSIDE RECORDS SUMMARY | 2021-10-24 10:34 | XMS_ITS | Encounter Summary ---
:1945 Author Organization [facility] Address [address] [place] [address] Care Team Providers Name Role Phone Unavailable Primary Care Provider Unavailable Encounter Details Date Type Department Care Team Description 05/27/2011 Hospital Encounter HX NO MAPPING Dandy Mccarthy P.T. [address] [place], [place] [phone] Social History Tobacco Use [...] Mccarthy P.T. - 05/27/2011 2:30 PM CDT [id number] REHAB SNAPSHOT Referring Provider: Tona Ledesma M.D. 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 This plan of care has been discussed with the patient/primary care provider and the patient/primary care provider is in agreement. Frequency / Duration: Patient [...] Total Time-Based Code Only Minutes: 23 minutes. OUTSIDE MAINTENANCE WORKER PRESENT: NA MULTIDISCIPLINARY PATIENT / FAMILY EDUCATION [...] Demonstrated ability, Verbalized recall / understanding Source: [facility] [id number] Document Id: [id number] Electronically signed by Sae [facility] [employer] Specialist [id number] at 07/19/2016 11:54 AM CDT documented in this encounter Plan of Treatment Not on filedocumented as of this encounter Visit Diagnoses Not on filedocumented in this encounter
--- OUTSIDE RECORDS SUMMARY | 2021-10-24 10:34 | XMS_ITS | Encounter Summary ---
:1945 Author Organization [facility] Address [address] [place] [address] Care Team Providers Name Role Phone Unavailable Primary Care Provider Unavailable Encounter Details Date Type Department Care Team Description 01/15/2011 Hospital Encounter HX [facility] Nicki Anthony, MAL, C.N.P., D.N.P. [address], [place] [phone] (Wo rk) Social History [...]
--- OUTSIDE RECORDS SUMMARY | 2021-10-24 10:34 | XMS_ITS | Encounter Summary ---
:1945 Author Organization [facility] Address [address] [place] [address] Care Team Providers Name Role Phone Unavailable [...]
--- OUTSIDE RECORDS SUMMARY | 2021-10-24 10:34 | XMS_ITS | Encounter Summary ---
:1945 Author Organization [facility] Address [address] [place] [address] Care Team Providers Name Role Phone Unavailable Primary Care Provider Unavailable Encounter Details Date Type Department Care Team Description 04/17/2011 Hospital Encounter HX [facility] Vickey Holt, MAL, C.N.P., D. N.P. [address] [place] [address] (Wo rk) Social History Tobacco [...] Reading Time Taken Comments Blood Pressure 120/60 04/17/2011 6:00 PM KILN LOADER Pulse 72 04/17/2011 6:00 PM KILN LOADER Temperature - - Respiratory Rate 14 04/17/2011 6:00 PM KILN LOADER Oxygen Saturation - - Inhaled Oxygen Concentration - - Weight - - Height - - Body Mass Index - - documented in this encounter Progress Notes Vickey Holt, D.N.P., C.N.P. - 04/17/2011 12:00 AM CST [id number] CHIEF COMPLAINT/REASON FOR VISIT 1. Sinus congestion. 2. Mild sore throat. HISTORY OF PRESENT ILLNESS Patient is a 65-year-old female who presents to clinic today with chief complaint of having some chronic sinus congestion. She was reportedly seen and treated with amoxicillin by me on 04/01/2011 in which the antibiotic was discontinued after 04/09/2011. She reports that I never really felt like I completely got better. She reports that she continues having some sinus congestion and reports that she also has some soreness on her tongue. She also reports that she does have some mild exudate on her tongue when she wakes up in the morning. She indicates that she has these lesions she sees on her tongue that she would like to have evaluated today. She otherwise denies having any other further concerns or issues at this time. CURRENT MEDICATIONS ALLERGIES Medications and allergies reviewed, please see chart. PAST MEDICAL HISTORY/SURGICAL HISTORY FAMILY HISTORY Past medical, surgical, family history viewed please see chart. PHYSICAL EXAMINATION GENERAL: alert and oriented x 3. HEENT: head normocephalic, atraumatic. PERRLA. Oropharynx is pink and moist. Bilateral TMs are clear. Bony landmarks are noted and within normal limits. Nares are patent with no erythema or drainage noted. There do appear to be more like dilated blood vessels (varicose veins) on the lateral aspects of the tongue but more so on the left than on the right. No other abnormalities noted. I do not appreciate any exudate on the surface of the tongue. NECK: no anterior or posterior lymphadenopathy is noted. LUNGS: clear to auscultation, no prolonged expiratory phases. No wheezes, rales, or rhonchi are noted. HEART: heart sounds are regular, S1 and S2. No murmurs, rubs, or gallops. SKIN: without any unusual rashes or suspicious lesions. IMPRESSION/REPORT/PLAN 1. Sinusitis. 2. Possible thrush. PLAN: Discussed the findings at length with the patient. At this time, I did opt to start her on Augmentin 875 mg tabs one tablet by mouth twice a day for seven days and she will contact me in four days. We will plan on total of 10 days of treatment duration though in the meantime we will only give her 7 days at this time as I do not want to exacerbate any further symptoms of potential candidiasis. I did prescribe the patient nystatin 1000 units/ml which she is to gargle and swallow up to four times a day as needed for seven days 140 mL with no refills authorized. I indicated to the patient that the dilated blood vessels most likely are an unremarkable finding which were probably presently there before but we will continue to monitor these as well. Indicated that if the exudate on the tongue does not improve follow-up would be warranted for further evaluation as most likely this is secondary to candidiasis from being on antibiotics. The patient understands this plan. She otherwise denied having any other further concerns or issues. Patient will follow-up as needed. Patient ambulated out of the clinic in no acute distress. Patient Education #1 Patient ready to learn. No apparent learning barriers were identified. Learning preferences included listening. Explained diagnosis and treatment plan. Patient expressed understanding of the content. Vickey Holt D.N.P., FFelecia.Payal. /felix Electronically Signed By: VICKEY HLOT DNP, FNP On: 04/21/2011 07:16 PM Source: [facility] MHSDOLBEYNONRADSYS Document Id: [id number] LOADER documented in this encounter Miscellaneous Notes Miscellaneous - Vickey Holt D.N.P., C.N.P. - 04/17/2011 6:34 PM KILN LOADER Ambulatory Patient Summary [address] [address] Visit Information Name: MARCIAL BAZAN Current Date: 04/17/2011 18:34:16 Physicians Attending Provider: VICKEY HOLT DNP, FNP [...] medications. Medication/Strength Dose Route Frequency Indications/Special Instructions/Comments nystatin (nystatin 100,000 units/mL oral suspension) 500,000 units Oral four times a day as needed for symptoms amoxicillin-clavulanate (Augmentin 875 mg oral tablet) 1 tab(s) Oral two times a day for 7 Days metformin (metformin 1000 mg oral tablet, extended [...] Additional Information Diabetes: A1C every 6 months 01/15/2011 07/17/2011 Average of blood sugar over a 2-3 month timeframe. Diabetes: Creatinine every 1 year 01/15/2011 01/15/2012 Diabetes: Diabetes Education every 1 year 04/17/2011 Diabetes: Eye Exam every 1 year 07/22/2010 07/22/2011 Diabetes: Foot Exam every 1 year 01/16/2011 01/16/2012 Diabetes: Microalbumin/Urine Protein every 1 year 05/30/2010 05/30/2011 Diabetes and/or Vascular: LDL every 1 year 01/15/2011 01/15/2012 Health Assessment every 1 year 03/31/2011 03/30/2012 Screening Bone Density Once Women greater than age 64 04/17/2011 Checks for bone loss and osteoporosis. Screening Colonoscopy or Flex Sig or Occult Blood 01/03/2009 01/01/2019 Checks for signs of cancer of the colon. Screening Mammogram every 1 year Women 40-75 04/17/2011 X-rays of breast to check for breast [...] that year's flu season. Vaccine: Pneumococcal Once 04/17/2011 Immunization to help prevent you from getting 23 kinds of pneumococcal bacteria that can lead to pneumonia, bacteremia and meningitis. Vaccine: Tetanus every 10 years 02/14/2010 02/12/2020 Immunization to help prevent you from getting the serious disease Tetanus (Lockjaw). Your Upcoming Appointments Date Time Location Reason Provider No Appointments found Your Goals/Additional instructions: Source: [facility] POWERCHART Document Id: [id number] LOADER Miscellaneous - Vickey Holt, D.N.P., C.N.P. - 04/17/2011 6:34 PM KILN LOADER Ambulatory Depart Summary [address] [address] Visit Information Name: MARCIAL BAZAN Visit Date: 04/17/2011 18:34:15 Attending Provider: VICKEY HOLT DNP, FNP Primary [...] medications. Medication/Strength Dose Route Frequency Indications/Special Instructions/Comments nystatin (nystatin 100,000 units/mL oral suspension) 500,000 units Oral four times a day as needed for symptoms amoxicillin-clavulanate (Augmentin 875 mg oral tablet) 1 tab(s) Oral two times a day for 7 Days metformin (metformin 1000 mg oral tablet, extended [...] clarification. Additional Information: Yes - . Source: [facility] POWERCHART Document Id: [id number] LOADER Miscellaneous - Janessa Lomeli, L.P.N. - 04/17/2011 6:00 PM CST Adult Corrosion Control Specialist Intake/History Adult Corrosion Control Specialist Intake/History Entered On: 04/17/2011 18:05 KILN LOADER Performed On: 04/17/2011 18:00 KILN LOADER by LOMELI, JANESSA Intake Chief Complaint : sores on her tongue and ST Temperature Core : 37.1C(Converted to: 98.8DegF) Peripheral Pulse Rate : 72/min Respiratory Rate : 14/min Heart Rhythm : Regular Systolic Blood Pressure : 120mmHg Diastolic Blood Pressure : 60mmHg NIBP Mean : 80mmHg BP Location : Right upper extremity Blood Pressure Cuff Size : Regular VALENTIN LOMELIN 04/17/2011 18:00 KILN LOADER Subjective Pain Symptoms : Yes ARMANI JANESSA 04/17/2011 18:00 KILN LOADER Pain Pain Assessment Grid Pain 1 Location : Throat Intensity : 7 ARMANI JANESSA 04/17/2011 18:00 KILN LOADER Dependent Habits Tobacco Use/Currently Using : No Exposure to Tobacco Smoke : Care provider denies smoking in home Smoking Status : Never smoker ARMANI JANESSA 04/17/2011 18:00 KILN LOADER Caffeine Use Grid Caffeine Use : Current Type : Tea Frequency : Occasionally ARMANI JANESSA 04/17/2011 18:00 KILN LOADER Recreational Drug Use Grid Drug Use : None ARMANI JANESSA 04/17/2011 18:00 KILN LOADER Allergy Allergies (Active) azithromycin Estimated Onset Date: Unspecified ; Created By: PETRA RUSSELL LPN; Reaction Status: Active ; Category: Drug ; Substance: azithromycin ; Type: Allergy ; Updated By: PETRA RUSSELL LPN; Reviewed Date: 03/31/2011 8:34 KILN LOADER Benicar Estimated Onset Date: Unspecified ; Created By: PETRA RUSSELL LPN; Reaction Status: Active ; Category: Drug ; Substance: Benicar ; Type: Allergy ; Updated By: PETRA RUSSELL LPN; Reviewed Date: 03/31/2011 8:34 KILN LOADER Source: [facility] POWERCHART Document Id: [id number] KILN LOADER!31 LOADER documented in this encounter Plan of Treatment Not on filedocumented as of this encounter Visit Diagnoses Not on filedocumented in this encounter
--- OUTSIDE RECORDS SUMMARY | 2021-10-24 10:34 | XMS_ITS | Encounter Summary ---
:1945 Author Organization [facility] Address [address] [place] [address] Care Team Providers Name Role Phone Unavailable Primary Care Provider Unavailable Encounter Details Date Type Department Care Team Description 03/09/2012 Hospital Encounter [facility]X [facility] Nicki Holt, AML, C.N.P., D. N.P. [address] [place] [address] (Wo rk) Social History Tobacco [...] Comments Blood Pressure 130/60 03/09/2012 1:31 PM MANAGER SUSTAINABILITY Pulse 77 03/09/2012 1:31 PM MANAGER SUSTAINABILITY Temperature - - Respiratory Rate 18 03/09/2012 1:31 PM MANAGER SUSTAINABILITY Oxygen Saturation - - Inhaled Oxygen Concentration - - Weight 88.8 kg (195 lb 12.3 oz) 03/09/2012 1:31 PM MANAGER SUSTAINABILITY Height 161 cm (5' 3.39) 03/09/2012 1:31 PM MANAGER SUSTAINABILITY Body Mass Index 34.26 03/09/2012 1:31 PM MANAGER SUSTAINABILITY documented in this encounter Medications at Time of Discharge Medication Sig Dispensed Refills Start Date End Date ASPIRIN ORAL Take 81 mg by mouth daily. Take 0 with food for heart health. documented as of this encounter Progress Notes Nicki Hotl D.N.P., C.N.P. - 03/09/2012 1:14 PM CST [id number] CHIEF COMPLAINT/REASON FOR VISIT Heart palpitations. HISTORY OF PRESENT ILLNESS Patient is a 66-year-old female who presents to clinic today with chief complaint of heart palpitations that have been present now for the past several months duration. She indicates that it sometimes even wakes her up at night in which [...] x 3. HEAD: Normocephalic/atraumatic. PUPILS: GENE. OROPHARYNX: Mier and moist. TMs: Bilateral TMs are clear, [...] 208. Triglycerides 319. HDL 57. LDL 87 (diabeticlabs were due), hemoglobin A1c 7.45%, TSH 6.99, [...] Patient states she understands this plan. She feltcomfortable this treatment plan. 2. Palpitations: Presently at this time as she is not having any symptoms at this time I did go ahead and order a Holter monitor for the patient in which this has been ordered as of today's date. We will plan on contacting the patient with these [...] plan. She denied any further questions or concerns. Patient ambulated out of the clinic in no acute distress. Nicki Holt D.N.P./Elmer/rodrick Electronically Signed By: NICIK HOLT DNP, FNP On: 03/18/2012 08:45 AM Source: [facility] MHSDOLBEYNONRADSYS Document Id: [id number] GER SUSTAINABILITY documented in this encounter Nursing Notes Andrea Malhotra R.N. - 03/09/2012 2:16 PM CST 30 day event monitor 30 day event monitor was ordered for symptomatic palpitations lasting less than 3 minutes. Monitor will be mailed to patient. Electronically Signed By: ANDREA MALHOTRA RN On: 03/09/2012 02:18 PM Source: [facility] POWERCHART Document Id: [id number] GER SUSTAINABILITY documented in this encounter Miscellaneous Notes Miscellaneous - Nicki Holt D.N.P., C.N.PJairo - 03/09/2012 5:07 PM MANAGER SUSTAINABILITY Ambulatory Patient Summary [id number] [place] [address] Visit Information Name: ARCHIE BAZAN [facility] Number: [id number] Current Date: 03/09/2012 17:07:55 [...] No Appointments found Your Goals/Additional instructions: Source: [facility] POWERCHART Document Id: [id number] GER SUSTAINABILITY Miscellaneous - Nicki Holt D.N.P., C.N.P. - 03/09/2012 5:07 PM MANAGER SUSTAINABILITY Ambulatory Depart Summary [facility] [address] [place] [address] Visit Information Name: ARCHIE BAZAN [facility] Number: [id number] Visit Date: 03/09/2012 17:07:54 [...] your provider for clarification. Additional Information: Source: [facility] POWERCHART Document Id: [id number] GER SUSTAINABILITY Miscellaneous - Mel Batista L.PJairoN. - 03/09/2012 1:33 PM CST Health Assessment Health Assessment Entered On: 03/09/2012 13:33 MANAGER SUSTAINABILITY Performed On: 03/09/2012 13:33 MANAGER SUSTAINABILITY by MEL BATISTA LPN Health Assessment Complete Health Assessment Complete or Modified : Annual Health Assessment Annual Health Assessment Completed : Yes MEL BATISTA LPN - 03/09/2012 13:33 MANAGER SUSTAINABILITY Nutrition Nutrition Risk Factors by History Adult : None MEL BATISTA LPN - 03/09/2012 13:33 MANAGER SUSTAINABILITY Functional Current Daily Living Assistance : None MEL BATISTA LPN - 03/09/2012 13:33 MANAGER SUSTAINABILITY Dependent Habits Tobacco Use/Currently Using : No Exposure to Tobacco Smoke : Care provider denies smoking in home Smoking Status : Never smoker MEL BATISTA LPN - 03/09/2012 13:33 MANAGER SUSTAINABILITY Caffeine Use Grid Caffeine Use : Current Type : Tea Frequency : Occasionally MEL BATISTA LPN - 03/09/2012 13:33 MANAGER SUSTAINABILITY Recreational Drug Use Grid Drug Use : None MEL BATISTA LPN - 03/09/2012 13:33 MANAGER SUSTAINABILITY Psychosocial Domestic Abuse Concerns : None MEL BATISTA LPN - 03/09/2012 13:33 MANAGER SUSTAINABILITY Advance Directive Advanced Directives : No MEL BATISTA LPN - 03/09/2012 13:33 MANAGER SUSTAINABILITY Educ Needs Learning Style Preference Adult Grid Patient : None Family : None MEL BATISTA LPN - 03/09/2012 13:33 MANAGER SUSTAINABILITY Source: [facility] POWERCHART Document Id: [id number] GER SUSTAINABILITY Miscellaneous - Mel Batista L.P.NJairo - 03/09/2012 1:31 PM CST Adult Gallery Intern Intake/History Adult Gallery Intern Intake/History Entered On: 03/09/2012 13:33 MANAGER SUSTAINABILITY Performed On: 03/09/2012 13:31 MANAGER SUSTAINABILITY by MEL BATISTA LPN Intake Temperature Core [...] 34.26kg/m2 MEL BATISTA LPN - 03/09/2012 13:31 MANAGER SUSTAINABILITY Subjective Pain Symptoms : No MEL BATISTA SUPPLY CHAIN CONSULTANT - 03/09/2012 13:31 MANAGER SUSTAINABILITY Dependent Habits Tobacco Use/Currently Using : No Exposure to Tobacco Smoke : Care provider denies smoking in home Smoking Status : Never smoker Alcohol Use : No MEL BATISTA LPN - 03/09/2012 13:31 MANAGER SUSTAINABILITY Caffeine Use Grid Caffeine Use : Current Type : Tea Frequency : Occasionally MEL BATISTA LPN - 03/09/2012 13:31 MANAGER SUSTAINABILITY Recreational Drug Use Grid Drug Use : None MEL BATISTA LPN - 03/09/2012 13:31 MANAGER SUSTAINABILITY Allergy Allergies (Active) azithromycin Estimated Onset Date: Unspecified ; Created By: PETRA RUSSELL LPN; Reaction Status: Active ; Category: Drug ; Substance: azithromycin ; Type: Allergy ; Updated By: PETRA RUSSELL LPN; Reviewed Date: 03/09/2012 13:21 MANAGER SUSTAINABILITY Benicar Estimated Onset Date: Unspecified ; Created By: PETRA RUSSELL LPN; Reaction Status: Active ; Category: Drug ; Substance: Benicar ; Type: Allergy ; Updated By: PETRA RUSSELL LPN; Reviewed Date: 03/09/2012 13:21 MANAGER SUSTAINABILITY Source: [facility] POWERCHART Document Id: [id number] GER SUSTAINABILITY documented in this encounter Plan of Treatment Not on filedocumented as of this encounter Visit Diagnoses Not on filedocumented in this encounter
--- OUTSIDE RECORDS SUMMARY | 2021-10-24 10:34 | XMS_ITS | Encounter Summary ---
:1945 Author Organization [facility] Address [address] [place] [address] Care Team Providers Name Role Phone Unavailable Primary Care Provider Unavailable Encounter Details Date Type Department Care Team Description 09/15/2011 Hospital Encounter HX [facility] Nicki Holt, MAL, C.N.P., D. N.P. [address] [place] [address] (Wo rk) Social History Tobacco [...] D.N.P., C.N.P. - 09/15/2011 12:00 AM CDT [id number] CHIEF COMPLAINT/REASON FOR VISIT Vaginal discharge and [...] but indicates that she just forgets to and states that I am not a water drinker. She reports that the dizziness was only this morning and otherwise feels unremarkable. She reports that she has not had any vaginal odor, shortness of breath ordifficulty breathing. Otherwise denies having any other further [...] to occur followup would be warranted. In addition, if the vaginal discharge does not resolve with hydration follow-up would also be warranted. Patient understands this plan and she otherwise denied having any other further questions or concerns. Patient ambulated out of the clinic in no acute distress. PATIENT EDUCATION #1 Patient/child/caregiver is ready to learn. No apparent learning barriers were identified. Learning preferences included listening. Explained diagnosis and treatment plan. Patient/child/caregiver expressed understanding of the content. Nicki Holt D.N.P./Elmer/felix Electronically Signed By: INCKI HOLT DNP, FNP On: 09/16/2011 07:26 AM Source: [facility] MHSDOLBEYNONRADSYS Document Id: [id number] documented in this encounter Miscellaneous Notes Miscellaneous - Vitaliy Darnell L.P.N. - 11/17/2011 5:35 PM CDT Quality Measures Quality Measures Entered On: 11/18/2011 17:36 CDT Performed On: 11/17/2011 17:35 CDT by VITALIY DARNELL LPN Diabetes Date of Last Eye Exam : 11/17/2011 CDT VITALIY DARNELL LPN - 11/18/2011 17:35 CDT Source: [facility] POWERCHART Document Id: [id number] Miscellaneous - Nicki Holt D.N.PJairo, C.N.P. - 09/15/2011 3:43 PM CDT Ambulatory Patient Summary [address] [place] [address] Visit Information Name: ARCHIE BAZAN Current Date: [...] Appointments found Your Goals/Additional instructions: Source: [facility] POWERCHART Document Id: [id number] Miscellaneous - Nicki Holt D.N.P., C.N.P. - 09/15/2011 3:43 PM CDT Ambulatory Depart Summary [facility] [address] [place] [address] Visit Information Name: ARCHIE BAZAN Visit Date: [...] your provider for clarification. Additional Information: Source: [facility] POWERCHART Document Id: [id number] Miscellaneous - John Blandon L.PJairoNJairo - 09/15/2011 2:38 PM CDT Adult Track Service Person Intake/History Adult Track Service Person Intake/History Entered On: 09/15/2011 14:45 CDT Performed [...] Reviewed Date: 04/28/2011 7:57 CDT Source: [facility] POWERCHART Document Id: [id number] documented in this encounter Plan of Treatment Not on filedocumented as of this encounter Procedures Procedure Name Priority Date/Time Associated Comments Diagnosis WET PREP EXAM, Routine 09/15/2011 3:15 PM Results for this UROGENITAL CDT procedure are i [...]
--- OUTSIDE RECORDS SUMMARY | 2021-10-24 10:34 | XMS_ITS | Encounter Summary ---
:1945 Author Organization [facility] Address [address] [place] [address] Care Team Providers Name Role Phone Unavailable Primary Care Provider Unavailable Encounter Details Date Type Department Care Team Description 12/04/2011 Hospital Encounter HX [facility] Nicki Anthony, MAL, C.N.P., D. N.P. [address] [place] [address] (Wo rk) Social History Tobacco [...]
--- OUTSIDE RECORDS SUMMARY | 2021-10-24 10:35 | XMS_ITS | Encounter Summary ---
:1945 Author Organization [facility] Address [address] [place] [address] Care Team Providers Name Role Phone Unavailable Primary Care Provider Unavailable Encounter Details Date Type Department Care Team Description 01/25/2009 Hospital Encounter HX [facility] IN[facility]/OBS[facility] Yady Vazquez M.D. [address] [place] [address] (Wo rk) Social History Tobacco Use Types [...]
--- OUTSIDE RECORDS SUMMARY | 2021-10-24 10:35 | XMS_ITS | Encounter Summary ---
:1945 Author Organization [facility] Address [address] [place] [address] Care Team Providers Name Role Phone Unavailable Primary Care Provider Unavailable Encounter Details Date Type Department Care Team Description 10/04/2010 Hospital Encounter [facility] Nicki Anthony, MAL, C.N.P., D. N.P. [address] [place] [address] (Wo rk) Social History Tobacco [...] WILSON LPN - 10/04/2010 9:16 CDT Source: [facility] POWERCHART Document Id: [id number] documented in this encounter Plan of Treatment Not on filedocumented as of this encounter Visit Diagnoses Not on filedocumented in this encounter
--- OUTSIDE RECORDS SUMMARY | 2021-10-24 10:35 | XMS_ITS | Encounter Summary ---
:1945 Author Organization [facility] Address [address] [place] [address] Care Team Providers Name Role Phone Unavailable Primary Care Provider Unavailable Encounter Details Date Type Department Care Team Description 09/26/2010 Hospital Encounter HX [facility] Nicki Anthony, MAL, C.N.P., D. N.P. [address] [place] [address] (Wo rk) Social History Tobacco [...]
--- OUTSIDE RECORDS SUMMARY | 2021-10-24 10:35 | XMS_ITS | Encounter Summary ---
:1945 Author Organization [facility] Address [address] [place] [address] Care Team Providers Name Role Phone Unavailable Primary Care Provider Unavailable Encounter Details Date Type Department Care Team Description 06/11/2010 Hospital En[facility] ED Ralf Parker M.D. [address] [place], [place] [phone] (Wo rk) Social History [...] 06/11/2010 11:54 PM CDT ED Discharge Instructions [address] [address] Name: ARCHIE BAZAN Date of : 1945 12:[birth year] AM Visit Date: 06/11/2010 10:01 PM Address: [address] [place] [phone] Primary Care Provider: VICKEY HOLT DNP, PROC TECH IMPORTANT: [facility] would like to thank you for allowing us to assist you with your healthcare needs. The following includes patient education materials and information regarding your injury/illness. Follow-Up Instructions: With: Address: When: VICKEY HOLT [address] [place] [address] phone, SentreHEART (1) Within As Needed Comments: Patient Education Materials: [id number] CHEST WALL PAIN:COSTOCHONDRITIS The chest pain that [...] Fever over 100.0?? F (37.8?? C) ?? 1339-1553 [employer], [address] [place] [address], [place] [address]. All rights reserved. This information is not [...] home with a responsible alliance party. I, ARCHIE BAZAN , or responsible alliance party have received this information and my questions havebeen answered. I have discussed any challenges I see with this plan with the nurse or physician. Patient Signature or Responsible Democrat Date/Time Provider Signature Date/Time Medication Reconciliation: Reconciliation [...] home with a responsible alliance party. I, ARCHIE BAZAN , or responsible alliance party have received this information and my questions havebeen answered. I have discussed any challenges I see with this plan with the nurse or physician. Patient Signature or Responsible Democrat Date/Time Provider Signature Date/Time This document has images extracted. Please consider using [employer] for all your patient education needs. Source: [facility] m2M StrategiesCHART Document Id: [id number] Conversion, Historical Provider Ser - 06/11/2010 11:54 PM CDT ED Depart Summary [facility] Emergency Department Clinical Discharge Summary PERSON INFORMATION Name ARCHIE BAZAN Age 65 Years 1945 12:00 AM Sex Female Language Rwandan PCP VICKEY HOLT DNP, PROC TECH Marital Status [facility] [id number] Visit Id Visit Reason Chest pain; Chest pain; chest pain Specialty Enc Type Emergency Med Service Emergency Medicine Referred by Track Group [facility] ED Discharge 06/11/2010 11:54 PM Tracking Id [id number] Checkout 06/11/2010 11:54 PM Checkin 06/11/2010 10:01 PM Acuity 3 -Urgent Dispo Type Discharged to Home or Self Care Arrival 06/11/2010 10:01 PM Reg Status LOS 000 01:53 Address: [address] [place] [phone] Comment: PROVIDER INFORMATION DIAGNOSIS Costochondritis 733.6 Comment: PATIENT EDUCATION INFORMATION Instructions: CHEST WALL PAIN, Costochondritis Follow up: With: Address: When: VICKEY HOLT [address] [place] [address] phone, SentreHEART (1) Within As Needed Comments: Source: Song[employer] Document Id: [id number] documented in this encounter Nursing Notes Conversion, Historical Provider Ser - 06/11/2010 11:01 PM CDT pain fluctuation Chest discomfort developed this evening while watching tv at home, rated 4/10. States pain increases with deep inhalation and with movement. Skin warm, dry pink Source: [facility] Document Id: [id number] Conversion, Historical Provider Ser - 06/11/2010 10:51 PM CDT ED Pain Assessment ED Pain Assessment Entered On: 06/11/2010 22:53 CDT Performed On: 06/11/2010 22:51 CDT by EMMA MCKEON RN Pain Pain Assessment Grid Pain 1 Location: Chest Acceptable Intensity: 3 Aggravating Factors: Movement EMMA MCKEON RN - 06/11/2010 22:51 CDT Source: [facility] [employer]Simple Document Id: [id number] CDT!7 Conversion, Historical Provider Ser - 06/11/2010 10:25 PM CDT ED Primary Assessment ED Primary Assessment Entered On: 06/11/2010 22:27 CDT Performed On: 06/11/2010 22:25 CDT by EMMA MCKEON RN Reason For Visit Problems(Active) Anxiety disorder NOS Name of Problem: Anxiety disorder NOS ; Onset Date: 1987 ; Recorder: PETRA RUSSELL LPN; Confirmation: Confirmed ; Classification: Nursing ; Code: 1231 ; Contributor System: Shiftboard Online SchedulingChart ; Last Updated: 03/19/2010 10:21 TELEPHONE INSTALLER ; Life Cycle Date: 03/19/2010 ; Life Cycle Status: Active ; Responsible Provider: PETRA RUSSELL LPN; Vocabulary: ICD-9-CM Hyperlipidemia/Dyslipidemia Name of Problem: Hyperlipidemia/Dyslipidemia ; Onset Date: 2004 ; Recorder: PETRA RUSSELL LPN; Confirmation: Confirmed ; Classification: Nursing ; Code: 1231 ; Contributor System: PowerChart ; Last Updated: 03/19/2010 10:15 TELEPHONE INSTALLER ; Life Cycle Date: 03/19/2010 ; Life Cycle Status: Active ; Responsible Provider: PETRA RUSSELL LPN; Vocabulary: ICD-9-CM NIDDM [non-insulin dependent diabetes mellitus] Name of Problem: NIDDM [non- insulin dependent diabetes mellitus] ; Onset Date: 2007 ; Recorder: PETRA RUSSELL LPN; Confirmation: Confirmed ; Classification: Nursing ; Code: 1231 ; Contributor System: PowerChart ; Last Updated: 03/19/2010 10:14 TELEPHONE INSTALLER ;Life Cycle Date: 03/19/2010 ; Life Cycle Status: Active ; Responsible Provider: PETRA RUSSELL LPN; Vocabulary: ICD-9-CM Osteoarthritis Name of Problem: Osteoarthritis ; Recorder: PETRA RUSSELL LPN; Confirmation: Confirmed ; Classification: Nursing ; Code: 1231 ; Contributor System: PowerChart ; Last Updated: 03/19/2010 10:17 TELEPHONE INSTALLER ; Life Cycle Date: 03/19/2010 ; Life Cycle Status: Active ; Responsible Provider: PETRA RUSSELL LPN; Vocabulary: ICD-9-CM Osteoporosis NOS Name of Problem: Osteoporosis NOS ; Recorder: PETRA RUSSELL LPN; Confirmation:Confirmed ; Classification: Nursing ; Code: 1231 ; Contributor System: PowerChart ; Last Updated: 03/19/2010 10:17 TELEPHONE INSTALLER ; Life Cycle Date: 03/19/2010 ; Life Cycle Status: Active ; Responsible Provider: PETRA RUSSELL LPN; Vocabulary: ICD-9-CM Rosacea Name of Problem: Rosacea ; Onset Date: 2006 ; Recorder: PETRA RUSSELL LPN; Confirmation: Confirmed ; Classification: Nursing ; Code: 1231 ; Contributor System: PowerChart ; Last Updated: 03/19/2010 10:18 TELEPHONE INSTALLER ; Life Cycle Date: 03/19/2010 ; Life Cycle Status: Active ; Responsible Provider:PETRA RUSSELL LPN; Vocabulary: ICD-9-CM TIA [Transient ischemic attack] Name of Problem: TIA [Transient ischemic attack] ; Onset Date: 2007 ; Recorder: PETRA RUSSELL LPN; Confirmation: Confirmed ; Classification: Nursing ; Code: 1231 ; Contributor System: PowerChart ; Last Updated: 03/19/2010 10:19 TELEPHONE INSTALLER ; Life Cycle Date: 03/19/2010 ; Life Cycle Status: Active ; Responsible Provider: PETRA RUSSELL LPN; Vocabulary: ICD-9-CM Diagnoses(Active) Chest pain Date: 06/11/2010 22:06 CDT ; Diagnosis Type: Reason For Visit ; Confirmation: Complaint of ; Classification: Medical ; Clinical Service: Emergency medicine ; Code: PNED ; Probability: 0 ; Diagnosis Code: [id number] Triage Mode of Arrival ED: Private vehicle Track: Medical Languages: Rwandan Pain Symptoms: Yes Vital Signs Assessed: Yes [...] Stated Symptoms: Chest pain Nail Bed Color: [place] Cardiac Rhythm: Sinus rhythm, PVC Ectopy Frequency: [...] MCKEON RN - 06/11/2010 22:32 CDT Source: [facility] POWERCHART Document Id: [id number] CDT!72 documented in this encounter ED Notes [...] MCKEON RN - 06/11/2010 23:52 CDT Source: [employer] Document Id: [id number] CDT!20 Conversion, Historical Provider Ser - 06/11/2010 [...] MCKEON RN - 06/11/2010 23:51 CDT Source: [employer] Document Id: [id number] CDT!7 Ralf Parker M.D. - 06/11/2010 10:20 [...] was moderate. The degree at maximum was moderate. The degree at present is moderate and 4 /10. . Exacerbating factors consist of breathing. The relieving factor is none. Risk factors consist of diabetes mellitus, obesity, hyperlipidemia family history of coronary artery disease. Prior episodes: none. Therapy today None. Associated symptoms: palpitations. Add itional history: not exertional, does not radiate, no [...] must include the following: Cholesterol, serum, total (85314), Lipoprotein, direct measurement, high density cholesterol (HDL cholesterol) (17569), Triglycerides (76413) (35902) in 2010 at 64 Years. Comments: 03/29/2010 09:40 - SHAHIDA PINEDO Hx: 01087 - LIPID PANEL Hemoglobin; glycosylated (A1C) (56600) in 2010 at 64 Years. Comments: 03/29/2010 09:40 - SHAHIDA PINEDO Hx: 86588 - GLYCATED HEMOGLOBIN Hemoglobin; glycosylated (A1C) (60980) in 2010 at 64 Years. Comments: 02/28/2010 16:47 - SHAHIDA PINEDO Hx: 68371 - GLYCATED HEMOGLOBIN Hemoglobin; glycosylated (A1C) (78131) in 2010 at 63 Years. Comments: 02/28/2010 16:47 - SHAHIDA PINEDO Hx: 52002 - GLYCATED HEMOGLOBIN Appendectomy (685016887) in 1959 at 13 Years. History of repair of umbilical hernia ([id number]). Comments: 03/19/2010 16:22 - PETRA RUSSELL LPN Times two 1997, 2000 section ([id number]). Comments: 03/19/2010 16:23 - PETRA RUSSELL LPN Times Two 1964, 1968 Biopsy of breast ([id number]). Physical Examination Vital signs: Time 06/11/2010 22:32:00, Vital Signs. 06/11/2010 22:25 CDT Mean Arterial Pressure 115 mmHg General: Alert. no acute distress. Skin: Warm. dry. pink. Head: Normocephalic Neck: Supple. trachea midline. mild tenderness to palpation, no specific area. Ears, nose, mouth and throat: Tympanic membranes clear Cardiovascular: Regular rate and rhythm. No edema. S1. S2. Non-displaced PMI. Systolic murmur: 2 /6 and at: right sternal border. Capillary refill: within normal limits. Respiratory: Lungs are clear to auscultation. respirations are non-labored. breath sounds are equal.Symmetrical chest wall expansion. Chest wall: markedly tender [...] normal sinus rhythm, No ST-T changes, normal TX & QRS intervals. Results review:Lab results : [...] prescription, Patient indicated understanding of instructions. Source: [facility] POWERCHART Document Id: [id number]} documented in this encounter Miscellaneous Notes Miscellaneous - Conversion, Historical Provider Ser - 06/11/2010 11:51 PM CDT Valuables/Belongings Valuables/Belongings Entered On: 06/11/2010 23:51 CDT Performed On: 06/11/2010 23:51 CDT by EMMA MCKEON RN Valuables/Belongings Belongings Sent Home With: with patient EMMA MCKEON RN - 06/11/2010 23:51 CDT Source: [employer] Document Id: [id number] CDT!3 Miscellaneous - Conversion, Historical Provider Ser [...] with Diagnosis Control: 15 Lynx Visit Level: 61679 Level 5 EMMA MCKEON RN - 06/11/2010 23:51 CDT Chief Complaint 8.50.02 Reason For Visit Category: Cardiorespiratory ED Chief Complaint Cardiorespiratory 8.5: Chest pain TVL Ca TVL for Facility Charge Ticket Dx: Level 5 EMMA MCKEON RN - 06/11/2010 23:51 CDT Source: [employer] Document Id: [id number] CDT!17 documented in this encounter Plan of Treatment Not on filedocumented as of this encounter Visit Diagnoses Not on filedocumented in this encounter
--- OUTSIDE RECORDS SUMMARY | 2021-10-24 10:35 | XMS_ITS | Encounter Summary ---
:1945 Author Organization [facility] Address [address] [place] [address] Care Team Providers Name Role Phone Unavailable Primary Care Provider Unavailable Encounter Details Date Type Department Care Team Description 01/15/2011 Hospital Encounter HX [facility] Asha Ramon, MAL, C.N.P., D. N.P. [address] [place], [place] [phone] (Wo rk) Social History [...]
--- OUTSIDE RECORDS SUMMARY | 2021-10-24 10:35 | XMS_ITS | Encounter Summary ---
:[address] [facility] Address [address] [place] [address] Care Team Providers Name Role Phone Unavailable Primary Care Provider Unavailable Encounter Details Date Type Department Care Team Description 02/23/2009 Hospital Encounter [facility] INTERNMED Steve Noel M.D. [address] [place] [phone] (Wo rk) Social History Tobacco Use Types [...] Noel M.D. - 02/23/2009 9:10 AM CST [id number] Comment: oven drier tender Chief Complaint Patient presents with Consult per [...] This is not associated with any abdominal cramping. She doesnt see any blood although she can occasionally have black stool. This is fairly rare. She denies any nausea or vomiting, her appetite has been good, no weight loss. No dysphagia or heartburn. No nausea or vomiting. The patient had been started on metformin around the time that she noticed worsening in her bowel movements and she does wonder if this could be associated. She has tried several different variations in her diet including avoiding fruit and dairy, but hasnt noticed much of a difference. She does notice that it is worse if she eats certain types of chocolate and it is certainly worseif she is nervous. She has not really [...] for years. It is likely worse because ofher metformin which can frequently cause looser stools. Fortunately she has not had any nausea or abdominal bloating with this. The patient can certainly try loperamide at 2 milligrams a day as needed.I would take this once a day to every other day, as this may help her with the urgency of her stoolswhich seems to be the most dramatic problem. [...] colonoscopy. The patient will try these steps Parrish did give her some information on metformin as she requested this. Patient will follow up with Dr. Vazquez and is welcome to follow up with me at any time. Thank you very much for allowing me to see this very pleasant patient. PCN/WDF/mp CC: Dr. Vazquez in [place] and Dr. Robledo. Source: [facility] RWHXTRANSXRTFSYS Document Id: [id number] Electronically signed by Conversion, [facility] Sinker Puller [id number] at 07/20/2016 7:24 AM CDT documented in this encounter Plan of Treatment Not on filedocumented as of this encounter Visit Diagnoses Not on filedocumented in this encounter
--- OUTSIDE RECORDS SUMMARY | 2021-10-24 10:35 | XMS_ITS | Encounter Summary ---
:1945 Author Organization [facility] Address [address] [place] [address] Care Team Providers Name Role Phone Unavailable Primary Care Provider Unavailable Encounter Details Date Type Department Care Team Description 11/14/2010 Hospital Encounter HX NO MAPPING Tam Helm M.D. [address] [place], [place] [phone] (Wo rk) Social History [...] about 30 hours a week in a 20:20 Mobile. VITAL SIGNS PULSE: 76 and regular BLOOD [...] HELM MD On: 11/21/2010 01:19 PM Source: [facility] MHSDOLBEYNONRADSYS Document Id: [id number] documented in this encounter Miscellaneous Notes Miscellaneous - nAdrea Malhotra R.N. - 11/14/2010 2:45 PM CDT Adult Web Content Specialist Intake/History Adult Web Content Specialist Intake/History Entered On: 11/14/2010 14:53 CDT Performed On: 11/14/2010 14:45 CDT by ANDREA MALHOTRA administrative operations coordinator Chief Complaint: Here to establish care - [...] By: Patient Preferred Communication Mode: Verbal Languages: Greek ANDREA MALHOTRA RN - 11/14/2010 14:45 CDT Subjective [...] MALHOTRA RN - 11/14/2010 14:45 CDT [facility]: [facility] Document Id: [id number] CDT!72 documented in this encounter Plan of Treatment Not on filedocumented as of this encounter Visit Diagnoses Not on filedocumented in this encounter
--- OUTSIDE RECORDS SUMMARY | 2021-10-24 10:35 | XMS_ITS | Encounter Summary ---
:1945 Author Organization [facility] Address [address] [place] [address] Care Team Providers Name Role Phone Unavailable Primary Care Provider Unavailable Encounter Details Date Type Department Care Team Description 01/03/2009 Hospital Encounter HX [facility] INPT/OBSRV Yady Vazquez M.D. [address] [place] [address] (Wo rk) Social History Tobacco Use Types [...]
--- OUTSIDE RECORDS SUMMARY | 2021-10-24 10:35 | XMS_ITS | Encounter Summary ---
:1945 Author Organization [facility] Address [address] [place] [address] Care Team Providers Name Role Phone Unavailable Primary Care Provider Unavailable Encounter Details Date Type Department Care Team Description 01/03/2009 Hospital Encounter [facility] INPT/OBSRV Clarke Robledo M.D. Social History [...]
--- OUTSIDE RECORDS SUMMARY | 2021-10-24 10:35 | XMS_ITS | Encounter Summary ---
:1945 Author Organization [facility] Address [address] [place] [address] Care Team Providers Name Role Phone Unavailable Primary Care Provider Unavailable Encounter Details Date Type Department Care Team Description 04/20/2009 Hospital Encounter [facility]X [facility] INPT/OBSRV Jose Alberto Garcia M.D. [address] [place], [place] [address] (Wo rk) Social History [...]
--- OUTSIDE RECORDS SUMMARY | 2021-10-24 10:35 | XMS_ITS | Encounter Summary ---
:1945 Author Organization [facility] Address [address] [place] [address] Care Team Providers Name Role Phone Unavailable Primary Care Provider Unavailable Encounter Details Date Type Department Care Team Description 04/24/2009 Hospital En[facility] INPT/OBSRV Nehal Yost Jr., M.D. [address] [place] [phone] (Wo rk) Social History Tobacco Use Types [...]
--- OUTSIDE RECORDS SUMMARY | 2021-10-24 10:35 | XMS_ITS | Encounter Summary ---
:1945 Author Organization [facility] Address [address] [place] [address] Care Team Providers Name Role Phone Unavailable Primary Care Provider Unavailable Encounter Details Date Type Department Care Team Description 07/25/2010 Hospital Encounter [facility] Nicki Holt, MAL, C.N.P., D.N.P. [address] [place], [place] [phone] (Wo rk) Social History [...] CDT Letter sent. From: NICKI HOLT DNP, SOILS TECHNICIAN To: VITALIY VILLEDA LPN Sent: 07/29/2010 09:47:31 CDT ! Show up: 07/29/2010 09:47:00 CDT Subject: Results Notification Actions: Notify patient of results Due Date/Time: 07/29/2010 09:47:00 CDT Source: [facility] POWERCHART Document Id: [id number] Electronically signed by Conversion, [facility] Supervisor Detasseling Crew [id number] at 07/20/2016 10:23 PM CDT documented in this encounter Plan of Treatment Not on filedocumented as of this encounter Visit Diagnoses Not on filedocumented in this encounter
--- OUTSIDE RECORDS SUMMARY | 2021-10-24 10:35 | XMS_ITS | Encounter Summary ---
:1945 Author Organization [facility] Address [address] [place] [address] Care Team Providers Name Role Phone Unavailable Primary Care Provider Unavailable Encounter Details Date Type Department Care Team Description 05/25/2010 Hospital Encounter [facility] Nicki Holt, MAL, C.N.P., D.N.P. [address] [place], [place] [phone] (Wo rk) Social History [...] CDT Letter sent. From: NICKI HOLT DNP, CURTAIN CUTTER HAND To: RAMONITA GUILLERMO LPN Sent: 05/28/2010 19:57:24 CDT ! Show up: 05/28/2010 19:57:00 CDT Subject: Results Notification Actions: Notify patient of results Due Date/Time: 05/28/2010 19:57:00 CDT Source: [facility] POWERCHART Document Id: [id number] Electronically signed by Conversion, [facility] Plastic Battery Assembler [id number] at 07/20/2016 11:20 AM CDT documented in this encounter Plan of Treatment Not on filedocumented as of this encounter Visit Diagnoses Not on filedocumented in this encounter
--- OUTSIDE RECORDS SUMMARY | 2021-10-24 10:35 | XMS_ITS | Encounter Summary ---
:1945 Author Organization [facility] Address [address] [place] [address] Care Team Providers Name Role Phone Unavailable Primary Care Provider Unavailable Encounter Details Date Type Department Care Team Description 09/26/2010 Hospital Encounter [facility] Nicki Finley, MAL, C.N.P., D. N.P. [address] [place] [address] (Wo rk) Social History Tobacco [...]
--- OUTSIDE RECORDS SUMMARY | 2021-10-24 10:35 | XMS_ITS | Encounter Summary ---
:1945 Author Organization [facility] Address [address] [place] [address] Care Team Providers Name Role Phone Unavailable Primary Care Provider Unavailable Encounter Details Date Type Department Care Team Description 05/30/2010 Hospital Encounter HX [facility] Nicki Holt, MAL, C.N.P., D. N.P. [address] [place] [address] (Wo rk) Social History Tobacco [...] Maritza.N.P., C.N.P. - 05/30/2010 12:00 AM CDT [id number] CHIEF COMPLAINT/REASON FOR VISIT Follow-up lab results. [...] HOLT DNP, FNP On: 06/03/2010 08:16 Source: [facility] Document Id: [id number] documented in this encounter Miscellaneous Notes Miscellaneous [...] results Due Date/Time: 05/30/2010 20:21:00 CDT Source: [facility] AnchorFree Document Id: [id number] Electronically signed by Sae [facility] Skin Diver [id number] at 07/20/2016 11:20 AM CDT Miscellaneous - Nicki Holt, D.N.P., C.N.P. - 05/30/2010 5:24 PM CDT Ambulatory Patient Summary [facility] - [address] [address] Visit Information Name: ARCHIE BAZAN Current Date: [...] Occult Blood X3 05/30/2010 Checks for signs of cancer of [...] No Appointments found Your Goals/Additional instructions: Source: [facility] POWERCHART Document Id: [id number] Electronically signed by Conversion, [facility] Skin Diver [id number] at 07/20/2016 11:20 AM CDT Miscellaneous - Nicki Holt D.N.P., C.N.P. - 05/30/2010 5:24 PM CDT Ambulatory Depart Summary [facility] - [address] [address] Visit Information Name: ARCHIE BAZAN Current Date: 05/30/2010 17:24:54 Primary Care Provider: NICKI HOLT [facility], DYE HOUSE WHEEL OPERATOR BENI JOSE MIGUELPATRICK MAI has been given [...] to the patient and/or family, guardian/caregiver. Source: [facility] POWERCHART Document Id: [id number] Electronically signed by Conversion, [facility] Skin Diver [id number] at 07/20/2016 11:20 AM CDT Miscellaneous - [...] DARNELL LPN - 05/30/2010 16:30 CDT Source: [employer] Document Id: [id number] CDT!20 Miscellaneous - Vitaliy Darnell LJairoP.N. 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Dude Ranch Manager Intake/History Adult Dude Ranch Manager Intake/History Entered On: 05/30/2010 16:30 CDT Performed [...] PETRA RUSSELL LPN; Reviewed Date: 03/19/2010 10:42 DEBONE SUPERVISOR Benicar Estimated Onset Date: Unspecified ; Created By: PETRA RUSSELL LPN; Reaction Status: Active ; Category: Drug ; Substance: Benicar ; Type: Allergy ; Updated By: PETRA RUSSELL LPN; Reviewed Date: 03/19/2010 10:40 DEBONE SUPERVISOR Source: [facility] Document Id: [id number] CDT!25 documented in this encounter Plan of Treatment Not on filedocumented as of this encounter Visit Diagnoses Not on filedocumented in this encounter
--- OUTSIDE RECORDS SUMMARY | 2021-10-24 10:35 | XMS_ITS | Encounter Summary ---
:1945 Author Organization [facility] Address [address] [place] [address] Care Team Providers Name Role Phone Unavailable Primary Care Provider Unavailable Encounter Details Date Type Department Care Team Description 09/23/2010 Hospital Encounter H[facility] Nicki Holt, MAL, Deana.N.P., D. N.P. [address] [place] [address] (Wo rk) Social History Tobacco [...] Maritza.N.P., C.N.P. - 09/23/2010 12:00 AM CDT [id number] CHIEF COMPLAINT/REASON FOR VISIT Lightheadedness. HISTORY OF [...] acute distress. HEAD: Normocephalic/atraumatic. PUPILS: GENE. OROPHARYNX: [place] and moist. TMs: Bilateral TMs are clear, [...] DNP, FNP On: 09/30/2010 03:36 PM Source: [facility] Document Id: [id number] documented in this encounter Miscellaneous Notes Miscellaneous [...] results Due Date/Time: 09/24/2010 17:24:00 CDT Source: [facility] POWERCHART Document Id: [id number] Electronically signed by Sae, [facility] Sales Management Intern [id number] at 07/20/2016 11:40 PM CDT Miscellaneous - Nicki Holt, Maritza.N.P., C.N.P. - 09/23/2010 4:37 PM CDT Ambulatory Patient Summary [address] [address] Visit Information Name: ARCHIE BAZAN Current Date: 09/23/2010 16:37:11 Primary Care Provider: NICKI HOLT KIT [facility] Your Medications Here is a list [...] No Appointments found Your Goals/Additional instructions: Source: [facility] [employer] Document Id: [id number] Electronically signed by Conversion, [facility] Sales Management Intern [id number] at 07/20/2016 11:40 PM CDT Miscellaneous - Nicki Holt D.N.P., C.N.P. - 09/23/2010 4:37 PM CDT Ambulatory Depart Summary [id number] [place] [address] Visit Information Name: ARCHIE BAZAN Current Date: 09/23/2010 16:37:10 Primary Care Provider: NICKI HLOT KIT [facility] ARCHIE BAZAN has been given the [...] to the patient and/or family, guardian/caregiver. Source: [facility] POWER[facility] Document Id: [id number] Electronically signed by Conversion, [facility] Sales Management Intern [id number] at 07/20/2016 11:40 PM CDT Miscellaneous - Conversion, Historical Provider Ser - 09/23/2010 3:54 PM CDT Ambulatory Vitals Height Weight Ambulatory Vitals Height Weight Entered On: 09/23/2010 15:54 CDT Performed On: 09/23/2010 15:54 CDT by RAMONITA GUILLERMO LPN Vitals/Ht/Wt Systolic Blood Pressure: 152mmHg (HI) Diastolic Blood Pressure: 74mmHg NIBP Mean: 100mmHg RAMONITA GUILLERMO LPN - 09/23/2010 15:54 CDT Source: [employer] Document Id: [id number] CDT!5 Miscellaneous - Conversion, Historical Provider Ser - 09/23/2010 3:49 PM CDT Adult Post Closer Intake/History Adult Post Closer Intake/History Entered On: 09/23/2010 15:53 CDT Performed On: 09/23/2010 15:49 CDT by RAMONITA GUILLERMO LPN Intake Chief Complaint: has had some light-headedness lately, ongoing for not quite a month, usually in themorning but not everyday occasional pain in lower [...] LPN; Reviewed Date: 09/23/2010 15:49 CDT Source: [facility] [employer] Document Id: [id number] CDT!23 documented in this encounter Plan of Treatment Not on filedocumented as of this encounter Visit Diagnoses Not on filedocumented in this encounter
--- OUTSIDE RECORDS SUMMARY | 2021-10-24 10:35 | XMS_ITS | Encounter Summary ---
:1945 Author Organization [facility] Address [address] [place] [address] Care Team Providers Name Role Phone Unavailable Primary Care Provider Unavailable Encounter Details Date Type Department Care Team Description 10/08/2009 Hospital Encounter [facility] INPT/OBSRV Nicki Anthony, MAL, C.N.P., D.N.P. [address] [place] [address] (Wo rk) Social History Tobacco [...]
--- OUTSIDE RECORDS SUMMARY | 2021-10-24 10:35 | XMS_ITS | Encounter Summary ---
:1945 Author Organization [facility] Address [address] [place] [address] Care Team Providers Name Role Phone Unavailable Primary Care Provider Unavailable Encounter Details Date Type Department Care Team Description 07/31/2009 Hospital Encounter [facility] INPT/OBSRV Nicki Anthony, MAL, C.N.P., D.N.P. [address] [place] [address] (Wo rk) Social History Tobacco [...]
--- OUTSIDE RECORDS SUMMARY | 2021-10-24 10:35 | XMS_ITS | Encounter Summary ---
:[address] [facility] Address [address] [place] [address] Care Team Providers Name Role Phone Unavailable Primary Care Provider Unavailable Encounter Details Date Type Department Care Team Description 05/25/2010 Hospital Encounter [facility] Nicki Holt, MAL, C.N.P., D.N.P. [address] [place], [place] [address] (Wo rk) Social History [...] taken care of. From: NICKI HOLT DNP, SHOPPING INSPECTOR To: RAMONITA GUILLERMO LPN Sent: 05/28/2010 19:57:24 CDT ! Show up: 05/28/2010 19:57:00 CDT Subject: Results Notification Actions: Notify patient of results Due Date/Time: 05/28/2010 19:57:00 CDT Source: [facility] POWERCHART Document Id: [id number] Electronically signed by Conversion, [facility] Friction Welding Machine Operator [id number] at 07/20/2016 11:20 AM CDT documented in this encounter Plan of Treatment Not on filedocumented as of this encounter Visit Diagnoses Not on filedocumented in this encounter
--- OUTSIDE RECORDS SUMMARY | 2021-10-24 10:35 | XMS_ITS | Encounter Summary ---
:1945 Author Organization [facility] Address [address] [place] [address] Care Team Providers Name Role Phone Unavailable Primary Care Provider Unavailable Encounter Details Date Type Department Care Team Description 10/16/2010 Hospital Encounter HX [facility] Nicki Anthony, MAL, C.N.P., D. N.P. [address] [place] [address] (Wo rk) Social History Tobacco [...] of this encounter Miscellaneous Notes Miscellaneous - Vitaliy Villeda, L.P.N. - 10/16/2010 8:40 AM CDT Ambulatory Vitals Height Weight Ambulatory Vitals Height Weight Entered On: 10/16/2010 8:41 CDT Performed On: 10/16/2010 8:40 CDT by VITALIY VILLEDA LPN Vitals/Ht/Wt Peripheral Pulse Rate: 64/min Respiratory Rate: 16/min Systolic Blood Pressure: 116mmHg Diastolic Blood Pressure: 68mmHg NIBP Mean: 84mmHg BP Location: Right upper extremity VITALIY VILLEDA LPN - 10/16/2010 8:40 CDT Source: [facility] POWERCHART Document Id: [id number] CDT!8 documented in this encounter Plan of Treatment Not on filedocumented as of this encounter Visit Diagnoses Not on filedocumented in this encounter
--- OUTSIDE RECORDS SUMMARY | 2021-10-24 10:35 | XMS_ITS | Encounter Summary ---
:1945 Author Organization [facility] Address [address] [place] [address] Care Team Providers Name Role Phone Unavailable Primary Care Provider Unavailable Encounter Details Date Type Department Care Team Description 01/07/2011 Hospital Encounter [facility] ME Nicki Holt, MAL, Deana.N.P., D. N.P. [address] [place] [address] (Wo rk) Social History Tobacco [...] Maritza.N.P., C.N.P. - 01/07/2011 12:00 AM CST [id number] CHIEF COMPLAINT/REASON FOR VISIT Medication refills. HISTORY [...] occasionally and reports that she has used novu-fix-[id number] Vaseline and alcohol with no symptom improvement. [...] DNP, FNP On: 01/14/2011 07:48 PM Source: [facility] Document Id: [id number] SUPPORT ENGINEER documented in this encounter Miscellaneous Notes Miscellaneous - Nicki Holt D.N.P., C.N.P. - 01/07/2011 8:41 AM IT SUPPORT ENGINEER Ambulatory Patient Summary [address] [address] Visit Information Name: ARCHIE BAZAN Current Date: [...] No Appointments found Your Goals/Additional instructions: Source: [facility] POWERCHART Document Id: [id number] SUPPORT ENGINEER Miscellaneous - Nicki Holt D.N.P., C.N.P. - 01/07/2011 8:41 AM IT SUPPORT ENGINEER Ambulatory Depart Summary [address] [address] Visit Information Name: ARCHIE BAZAN Current Date: 01/07/2011 08:41:08 Primary Care Provider: NICKI HOLT [facility], LOANS CONSULTANT ARCHIE BAZAN has been given the following [...] to the patient and/or family, guardian/caregiver. Source: [facility] POWERCHART Document Id: [id number] SUPPORT ENGINEER Miscellaneous - Karla Woods L.P.N. - 01/07/2011 7:48 AM CST Adult Bridge Manager Intake/History Adult Bridge Manager Intake/History Entered On: 01/07/2011 7:51 IT SUPPORT ENGINEER Performed On: 01/07/2011 7:48 IT SUPPORT ENGINEER by KARLA WOODS LPN, RT Intake Chief Complaint : [...] 194lb 4oz) Dosing Weight Clinic : 88.10kg KARLA WOODS LPN, RT - 01/07/2011 7:48 IT SUPPORT ENGINEER General Info Information Given By : Patient Preferred Communication Mode : Verbal Languages : Swazi KARLA WOODS LPN, RT - 01/07/2011 7:48 IT SUPPORT ENGINEER Subjective Pain Symptoms : No KARLA WOODS LPN, - 01/07/2011 7:48 IT SUPPORT ENGINEER Dependent Habits Tobacco Use/Currently Using : No Smoking Status : Never smoker Alcohol Use : No KARLA WOODS LPN, - 01/07/2011 7:48 IT SUPPORT ENGINEER Caffeine Use Grid Caffeine Use : Current Type : Tea Frequency : Occasionally KARLA WOODS LPN, RT - 01/07/2011 7:48 IT SUPPORT ENGINEER Recreational Drug Use Grid Drug Use : None KARLA WOODS LPN, - 01/07/2011 7:48 IT SUPPORT ENGINEER Allergy Allergies (Active) azithromycin Estimated Onset [...] LPN; Reviewed Date: 11/14/2010 14:45 CDT [facility] Document Id: [id number] IT SUPPORT ENGINEER!33 SUPPORT ENGINEER documented in this encounter Plan of Treatment Not on filedocumented as of this encounter Visit Diagnoses Not on filedocumented in this encounter
--- OUTSIDE RECORDS SUMMARY | 2021-10-24 10:35 | XMS_ITS | Encounter Summary ---
:1945 Author Organization [facility] Address [address] [place] [address] Care Team Providers Name Role Phone Unavailable Primary Care Provider Unavailable Encounter Details Date Type Department Care Team Description 06/27/2010 Hospital Encounter HX [facility] INTERNMED Provider, Lázaro lion Social History Tobacco [...] Provider Ser - 06/27/2010 12:00 AM CDT [id number] Marcial Adams [address] [place] [phone] [place] June 27, 2010 Dear Marcial [...] to take advantage of this benefit. At [facility] we value and encourage preventive care and health education. It is simple to schedule your appointment. Call [phone] (toll-free: ), let the glue spreading machine operator know that you would like [...] followed by an exam by a physician assistant executive housekeeper who will conduct a thorough health screening [...] to help you maintain your health. At [facility], we are committed to being you partner for a healthy future. Please call us when you are ready to schedule your appointment. Sincerely, Lana Schaeffer PA-C INTERNAL MEDICINE Source: [facility] RWHXTRANSXRTFSYS Document Id: [id number] documented in this encounter Plan of Treatment Not on filedocumented as of this encounter Visit Diagnoses Not on filedocumented in this encounter
--- OUTSIDE RECORDS SUMMARY | 2021-10-24 10:35 | XMS_ITS | Encounter Summary ---
:1945 Author Organization [facility] Address [address] [place] [address] Care Team Providers Name Role Phone Unavailable Primary Care Provider Unavailable Encounter Details Date Type Department Care Team Description 02/21/2010 Hospital Encounter [facility] INPT/OBSRV Jermaine Yost P.A.-C. [address] [place] [address] (Wo rk) Social History Tobacco [...]
--- OUTSIDE RECORDS SUMMARY | 2021-10-24 10:35 | XMS_ITS | Encounter Summary ---
:1945 Author Organization [facility] Address [address] [place] [address] Care Team Providers Name Role Phone Unavailable Primary Care Provider Unavailable Encounter Details Date Type Department Care Team Description 10/16/2010 Hospital Encounter [facility] Nicki Holt, MAL, C.N.P., D.N.P. [address] [place], [place] [address] (Wo rk) Social History [...] CDT Results Notification From: NICKI HOLT DNP, BUCKLE ATTACHING MACHINE OPERATOR To: RAMONITA GUILLERMO LPN Sent: 10/17/2010 16:22:43 CDT ! Show up: 10/17/2010 16:10:00 CDT Subject: Results Notification Actions: Notify patient of results Due Date/Time: 10/17/2010 16:10:00 CDT Source: [facility] POWERCHART Document Id: [id number] Electronically signed by Conversion, [facility] Manager Stars [id number] at 07/20/2016 11:40 PM CDT documented in this encounter Plan of Treatment Not on filedocumented as of this encounter Visit Diagnoses Not on filedocumented in this encounter
--- OUTSIDE RECORDS SUMMARY | 2021-10-24 10:35 | XMS_ITS | Encounter Summary ---
:1945 Author Organization [facility] Address [address] [place] [address] Care Team Providers Name Role Phone Unavailable Primary Care Provider Unavailable Encounter Details Date Type Department Care Team Description 12/21/2009 Hospital Encounter [facility] INPT[facility]OBSRV Nicki Anthony, MAL, C.N.P., D.N.P. [address] [place] [address] (Wo rk) Social History Tobacco [...]
--- OUTSIDE RECORDS SUMMARY | 2021-10-24 10:35 | XMS_ITS | Encounter Summary ---
:1945 Author Organization [facility] Address [address] [place] [address] Care Team Providers Name Role Phone Unavailable Primary Care Provider Unavailable Encounter Details Date Type Department Care Team Description 02/14/2010 Hospital Encounter [facility] INPT/OBSRV Nicki Anthony, MAL, C.N.P., D.N.P. [address] [place] [address] (Wo rk) Social History Tobacco [...]
--- OUTSIDE RECORDS SUMMARY | 2021-10-24 10:36 | XMS_ITS | Encounter Summary ---
:1945 Author Organization [facility] Address [address] [place] [address] Care Team Providers Name Role Phone Unavailable Primary Care Provider Unavailable Encounter Details Date Type Department Care Team Description 02/07/2008 Hospital Encounter [facility] INPT/OBSRV Jermaine Yost P.A.-C. [address] [place] [address] (Wo rk) Social History Tobacco [...]
--- OUTSIDE RECORDS SUMMARY | 2021-10-24 10:36 | XMS_ITS | Encounter Summary ---
:1945 Author Organization [facility] Address [address] [place] [address] Care Team Providers Name Role Phone Unavailable Primary Care Provider Unavailable Encounter Details Date Type Department Care Team Description 09/14/2002 [facility] Terri Victor M.D. [address] [place], [place] [address] (Wo rk) Social History [...] Progress Notes Conversion, Historical Provider Ser - 09/14/2002 8:15 AM CDT [id number] Addended by: NICANOR SMALL on: 09/20/2002,10:31 AM Comment: TranscriptionModules accepted: Pro wilhelm NotesPain Questionnaire: Is your visit today because of Pain? YES. Where is the pain locate d? left eye.How would you describe the pain? steady pulling discomfort.How long have you had the pa in? 2-3 month(s).On a scale of 1-10 with 10 the worst - how would you rate your pain right now? 2-5. What have you been using to alleviate the pain? massage the eyePamphlet given to patient? yes.Justin rubens Adams is a 57 year old female who presents for left eye pain- consult Dr. Lincoln Vazquez. His tory of Present Illness: Patient states she has had the os discomfort for the past 2-3 months. When s he looks to the right- she get's a pulling discomfort by the upper left eye and eyebrow area, and she also feels the pulling on the left side of the head, right behind the left ear. Has also noticed hav ing blurred vision in os, after using near vision for a while- this has been happening for a long agapito e. Current glasses rx about 1-[address] Cruz in [place]- he has checked her pressur es in her eye x 2, has done a visual filed and a dilated exam and didn't find anything. The patient i s very concerned about it.Dorina Bucio, TEAatijim Active Problem List: OSTEOPOROSIS NEC[733.09] PAST MEDICAL HISTORY: Review of patient's past medical history indicates: UMBILICAL HERNIA POSTMENOPAUSAL BLEEDING OST EOPOROSIS NEC PAST SURGICAL HISTORY: Review of patient's p ast surgical history indicates: FULL ROUT OBSTE CARE, DELIV APPEND ECTOMY REPAIR INCISIONAL HERNIA,REDUCIBLE 06/14/98 Comment: Incisional hernia repair w mesh UNLISTED PROC, LAPAROSCOPY, HERNIOPLASTY/ HERNI* 03/22/01 COLONOSCOPY,BIOPSY 07/06/02 MEDICATIONS: Current prescriptions:MULTIVITAMIN TABS OR 1 tab prnCALCIUM 600 MG OR TABS 1 tabALLERGIES: No Known Al lergies Tobacco Use: Never Alcohol Use: No Pt does drive motor vehicle.Revi ew of patient's family history indicates: Cancer Mother Comment: breast Diabetes Daughter Diabetes Brother Comment: x1 Diabetes Paternal Uncle Comment: x2 Eye Maternal Grandmother Comment: cataract Hypert ension No family hx of REVIEW OF SYSTEMS:General: negativeSkin: negativ eEyes:glassesEars/Nose/Mouth/Throat: negativeRespiratory: negativeCardiovascular: negativeGastro intestinal: negativeGenitourinary: negativeMusculoskeletal: negativeNeurologic: negativePsychiatr ic: negativeHematologic/Lymphatic/Immunologic: negativeEndocrine: negative* * *CONFRONTATION V ISUAL SALGUERO: IntactMOTILITY: Shows full ductions and versions, orthotropic at distance and near. PUPILS: Briskly reactive without afferent defect EXTERNAL: There is no proptosis or evident mass. G entle retropulsion of the globes reveals no tenderness. As the patient looks down and the superior o rbit is gently palpated there is an area of tenderness but no mass effect.SLIT LAMP EXAMINATION: Th ere is no conjunctival or episcleral injection. Corneas clear. Chambers deep and quiet. Irises no rmal. Lenses clear. FUNDUS: Normal maculae, disks, and peripapular vessels OU. IMPRESSION: Ocular discomfort OS. It appears to be inflammatory - no evidence of sinus disease.PLAN: 1) Recommend OTC and nonsteroidals such as Aleve or Motrin.2) Trial of Voltaren one drop OS qid for 2 weeks. 3) Ret urn to clinic if ocular discomfort persists. If she has tenderness in the orbit then CT scanning may be indicated to rule out mass.Zach Novoa M.D./stephieaD: 09/14/2002T: 09/19/2002 Source: [facility] RWHXTRANSXSYS Document Id: [id number] documented in this encounter Miscellaneous Notes Miscellaneous - Conversion, Historical Provider Ser - 09/14/2002 8:15 AM CDT [id number] September 14, 2002 Lincoln Vazquez M.D. [address] [address] RE: Marcial Adams EMR#[id number] Dear Lincoln: Thank you for having me see Marcial Adams. As you recall she is a 57-year-old female who you asked meto see regarding pain on the left eye periorbital region. The patient noted pain in the left side for 2 - 3 months duration. This was most likely to occur when she looked to the right or occasionally when she looked down. She had not noticed any distortion of vision. She denied redness, discharge or tearing of the eye. Her past ocular history is remarkable only for a refractive error. The patient also specifically denies symptoms of sinus disease. On examination in the clinic the patients corrected visual acuity measured 20/25 OU. External exam was unremarkable. There were no orbital masses and there was no proptosis. The patienthad full ocular motility. There was mild tenderness in the superior orbit when gently palpated on the left side. By slit lamp examination there was no evidence of inflammation both externally or internally. The intraocular pressures were within normal limits and on external examination the fundus was unremarkable. My impression is that Marcial has mild superior orbital or superior globe tenderness on the left side. This has not caused any change in her vision and I can not see any evidence of orbital mass. I started her on Voltaren eyedrops four times daily as well as an oral nonsteroidal. I asked her to continue with these medications for a total of two weeks. If these symptoms resolve then no further workup is necessary. On the other hand, if her symptoms persist despite these measures than orbital CT imaging would be indicated. Thanks for having me see Elena. If further workup is indicated I will certainly keep you informed. Sincerely, Zach Novoa M.D. Department of Ophthalmology ANOOP/brittni Source: [facility] RWHXTRANSXRTFSYS Document Id: [id number] documented in this encounter Plan of Treatment Not on filedocumented as of this encounter Visit Diagnoses Not on filedocumented in this encounter
--- OUTSIDE RECORDS SUMMARY | 2021-10-24 10:36 | XMS_ITS | Encounter Summary ---
:1945 Author Organization [facility] Address [address] [place] [address] Care Team Providers Name Role Phone Unavailable Primary Care Provider Unavailable Encounter Details Date Type Department Care Team Description 04/20/2008 Hospital Encounter [facility] INPT/OBSRV Yady Vazquez M.D. [address] [place] [address] (Wo rk) Social History Tobacco Use Types [...]
--- OUTSIDE RECORDS SUMMARY | 2021-10-24 10:36 | XMS_ITS | Encounter Summary ---
:1945 Author Organization [facility] Address [address] [place] [address] Care Team Providers Name Role Phone Unavailable Primary Care Provider Unavailable Encounter Details Date Type Department Care Team Description 03/03/2008 Hospital En[facility]BS[facility] Jermaine Yost P.A.-C. [address] [place] [address] (Wo rk) Social History Tobacco [...]
--- OUTSIDE RECORDS SUMMARY | 2021-10-24 10:36 | XMS_ITS | Encounter Summary ---
:1945 Author Organization [facility] Address [address] [place] [address] Care Team Providers Name Role Phone Unavailable Primary Care Provider Unavailable Encounter Details Date Type Department Care Team Description 07/06/[address] [facility] IN[facility]OBSRV Yady Vazquez M.D. [address] [place] [address] (Wo rk) Social History Tobacco Use Types [...]
--- OUTSIDE RECORDS SUMMARY | 2021-10-24 10:36 | XMS_ITS | Encounter Summary ---
:1945 Author Organization [facility] Address [address] [place] [address] Care Team Providers Name Role Phone Unavailable [...] Provider Ser - 07/14/2002 12:00 AM CDT [id number] Marcial Adams [address] [place] [address] July 14, 2002 Dear Marcial Adams The biopsy results from your recent colonoscopy exam on July 06, 2002, at [facility] Endoscopy Department show the following: The tissue samples show benign tissue.You should have another colonoscopy in 5-[address] as recommended by Dr[address] Robledo. If you have any questions/concerns regarding this, please call us at [phone]. Thank you for letting us serve you. Sincerely, Paola Howe Source: [facility] RWHXTRANSXRTFSYS Document Id: [id number] documented in this encounter Plan of Treatment Not on filedocumented as of this encounter Visit Diagnoses Not on filedocumented in this encounter
--- OUTSIDE RECORDS SUMMARY | 2021-10-24 10:36 | XMS_ITS | Encounter Summary ---
:1945 Author Organization [facility] Address [address] [place] [address] Care Team Providers Name Role Phone Unavailable Primary Care Provider Unavailable Encounter Details Date Type Department Care Team Description 04/26/2007 Hospital Encounter [facility] INPT/OBSRV Yady Vazquez M.D. [address] [place] [address] (Wo rk) Social History Tobacco Use Types [...]
--- OUTSIDE RECORDS SUMMARY | 2021-10-24 10:36 | XMS_ITS | Encounter Summary ---
:1945 Author Organization [facility] Address [address] [place] [address] Care Team Providers Name Role Phone Unavailable [...]
--- OUTSIDE RECORDS SUMMARY | 2021-10-24 10:36 | XMS_ITS | Encounter Summary ---
:1945 Author Organization [facility] Address [address] [place] [address] Care Team Providers Name Role Phone Unavailable Primary Care Provider Unavailable Encounter Details Date Type Department Care Team Description 08/17/2007 Hospital Encounter [facility] INPT/OBSRV Yady Vazquez M.D. [address] [place] [address] (Wo rk) Social History Tobacco Use Types [...]
--- OUTSIDE RECORDS SUMMARY | 2021-10-24 10:36 | XMS_ITS | Encounter Summary ---
:1945 Author Organization [facility] Address [address] [place] [address] Care Team Providers Name Role Phone Unavailable Primary Care Provider Unavailable Encounter Details Date Type Department Care Team Description 07/13/2001 Hospital Encounter [facility]X [facility] SURGCLDian Marks, Hernan [address] [place], [place] [address] (Wo rk) Social History [...] Provider Ser - 07/13/2001 11:45 AM CDT [id number] Addended by: PAWEL SCHMITT on: 07/14/2001,9:57 AM Comment: transcriptionModules accepted: Prog ress NotesThis office note has been dictated.SUBJECTIVE: Ms. Adams is here for f/u and results of a CT scan done in [place]. OBJECTIVE: She previously had an incisional hernia [...] she said she will try to schedule annabelle t. Otherwise, f/u with me prn. Miguelina Bianchi D.O./PLSD: 07/13/2001T: 07/14/2001 Source: [facility] RWHXTRANSXSYS Document Id: [id number] documented in this encounter Plan of Treatment Not on filedocumented as of this encounter Visit Diagnoses Not on filedocumented in this encounter
--- OUTSIDE RECORDS SUMMARY | 2021-10-24 10:36 | XMS_ITS | Encounter Summary ---
:[address] [facility] Address [address] [place] [address] Care Team Providers Name Role Phone Unavailable Primary Care Provider Unavailable Encounter Details Date Type Department Care Team Description 04/17/2007 Hospital Encounter [facility] INPT/OBSRV Yady Vazquez M.D. [address] [place] [address] (Wo rk) Social History Tobacco Use Types [...]
--- OUTSIDE RECORDS SUMMARY | 2021-10-24 10:36 | XMS_ITS | Encounter Summary ---
:1945 Author Organization [facility] Address [address] [place] [address] Care Team Providers Name Role Phone Unavailable [...] Provider Ser - 07/06/2002 6:25 AM CDT [id number] Addended by: DANIEL LOPEZ on: 07/26/2002,4:19 PM Comment: JAMES CUELLAR =BLEEModules accepted: Prog ress Notes Source: [facility] RWHXTRANSXSYS Document Id: [id number] documented in this encounter Plan of Treatment Not on filedocumented as of this encounter Visit Diagnoses Not on filedocumented in this encounter
--- OUTSIDE RECORDS SUMMARY | 2021-10-24 10:36 | XMS_ITS | Encounter Summary ---
:1945 Author Organization [facility] Address [address] [place] [address] Care Team Providers Name Role Phone Unavailable Primary Care Provider Unavailable Encounter Details Date Type Department Care Team Description 04/01/2004 Hospital Encounter [facility]X [facility] XRAY Provider, Histori joao Social History [...]
--- OUTSIDE RECORDS SUMMARY | 2021-10-24 10:36 | XMS_ITS | Encounter Summary ---
:1945 Author Organization [facility] Address [address] [place] [address] Care Team Providers Name Role Phone Unavailable [...]
--- OUTSIDE RECORDS SUMMARY | 2021-10-24 10:36 | XMS_ITS | Encounter Summary ---
:1945 Author Organization [facility] Address [address] [place] [address] Care Team Providers Name Role Phone Unavailable Primary Care Provider Unavailable Encounter Details Date Type Department Care Team Description 07/30/2007 Hospital Encounter [facility] INPT/OBSRV Jose Alberto Garcia M.D. [address] [place], [place] [address] (Wo rk) Social History [...]
--- OUTSIDE RECORDS SUMMARY | 2021-10-24 10:36 | XMS_ITS | Encounter Summary ---
:1945 Author Organization [facility] Address [address] [place] [address] Care Team Providers Name Role Phone Unavailable Primary Care Provider Unavailable Encounter Details Date Type Department Care Team Description 02/03/2008 Hospital Encounter [facility] INPT/OBSRV Jermaine Yost P.A.-C. [address] [place] [address] (Wo rk) Social History Tobacco [...]
--- OUTSIDE RECORDS SUMMARY | 2021-10-24 10:36 | XMS_ITS | Encounter Summary ---
:1945 Author Organization [facility] Address [address] [place] [address] Care Team Providers Name Role Phone Unavailable Primary Care Provider Unavailable Encounter Details Date Type Department Care Team Description 04/20/2007 Hospital Encounter [facility] INPT/OBSRV Yady Vazquez M.D. [address] [place] [address] (Wo rk) Social History Tobacco Use Types [...]
--- OUTSIDE RECORDS SUMMARY | 2021-10-24 10:36 | XMS_ITS | Encounter Summary ---
:1945 Author Organization [facility] Address [address] [place] [address] Care Team Providers Name Role Phone Unavailable Primary Care Provider Unavailable Encounter Details Date Type Department Care Team Description 04/17/2007 Hospital Encounter [facility] IN[facility]/OBSRV Yady Vazquez M.D. [address] [place] [address] (Wo rk) Social History Tobacco Use Types [...]
--- OUTSIDE RECORDS SUMMARY | 2021-10-24 10:36 | XMS_ITS | Encounter Summary ---
:1945 Author Organization [facility] Address [address] [place] [address] Care Team Providers Name Role Phone Unavailable [...]
--- OUTSIDE RECORDS SUMMARY | 2021-10-24 10:36 | XMS_ITS | Encounter Summary ---
:1945 Author Organization [facility] Address [address] [place] [address] Care Team Providers Name Role Phone Unavailable Primary Care Provider Unavailable Encounter Details Date Type Department Care Team Description 04/21/2007 Hospital Encounter [facility] INPT/OBSRV Yady Vazquez M.D. [address] [place] [address] (Wo rk) Social History Tobacco Use Types [...]
--- OUTSIDE RECORDS SUMMARY | 2021-10-24 10:36 | XMS_ITS | Encounter Summary ---
:1945 Author Organization [facility] Address [address] [place] [address] Care Team Providers Name Role Phone Unavailable Primary Care Provider Unavailable Encounter Details Date Type Department Care Team Description 01/03/2009 Hospital Encounter HX NO MAPPING Arias Robledo [...]
--- OUTSIDE RECORDS SUMMARY | 2021-10-24 10:36 | XMS_ITS | Encounter Summary ---
:1945 Author Organization [facility] Address [address] [place] [address] Care Team Providers Name Role Phone Unavailable Primary Care Provider Unavailable Encounter Details Date Type Department Care Team Description 05/05/2007 Hospital Encounter [facility] INPT/OBSRV Yady Vazquez M.D. [address] [place] [address] (Wo rk) Social History Tobacco Use Types [...]
--- OUTSIDE RECORDS SUMMARY | 2021-10-24 10:36 | XMS_ITS | Encounter Summary ---
:1945 Author Organization [facility] Address [address] [place] [address] Care Team Providers Name Role Phone Unavailable [...]
--- OUTSIDE RECORDS SUMMARY | 2021-10-24 10:36 | XMS_ITS | Encounter Summary ---
:1945 Author Organization [facility] Address [address] [place] [address] Care Team Providers Name Role Phone Unavailable Primary Care Provider Unavailable Encounter Details Date Type Department Care Team Description 12/20/2008 Hospital Encounter [facility] INPT/OBSRV Clarke Robledo M.D. Social History [...]
--- OUTSIDE RECORDS SUMMARY | 2021-10-24 10:36 | XMS_ITS | Encounter Summary ---
:1945 Author Organization [facility] Address [address] [place] [address] Care Team Providers Name Role Phone Unavailable Primary Care Provider Unavailable Encounter Details Date Type Department Care Team Description 10/30/2008 Hospital Encounter HX [facility] INPT/OBSRV Jose Alberto Garcia M.D. [address] [place], [place] [address] (Wo rk) Social History [...]
--- OUTSIDE RECORDS SUMMARY | 2021-10-24 10:36 | XMS_ITS | Encounter Summary ---
:1945 Author Organization [facility] Address [address] [place] [address] Care Team Providers Name Role Phone Unavailable Primary Care Provider Unavailable Encounter Details Date Type Department Care Team Description 11/28/2008 Hospital Encounter [facility] INPT/OBSRV Yady Vazquez M.D. [address] [place] [address] (Wo rk) Social History Tobacco Use Types [...]
--- OUTSIDE RECORDS SUMMARY | 2021-10-24 10:36 | XMS_ITS | Encounter Summary ---
:1945 Author Organization [facility] Address [address] [place] [address] Care Team Providers Name Role Phone Unavailable Primary Care Provider Unavailable Encounter Details Date Type Department Care Team Description 04/30/2007 Hospital Encounter [facility] INPT/OBSRV Yady Vazquez M.D. [address] [place] [address] (Wo rk) Social History Tobacco Use Types [...]
--- OUTSIDE RECORDS SUMMARY | 2021-10-24 10:37 | XMS_ITS | Encounter Summary ---
:1945 Author Organization [facility] Address [address] [place] [address] Care Team Providers Name Role Phone Unavailable Primary Care Provider Unavailable Encounter Details Date Type Department Care Team Description 05/21/2001 Hospital Encounter HX [facility] Dian [place], Hernan [address] [place], [place] [address] (Wo rk) Social History [...] Provider Ser - 05/21/2001 12:00 AM CST [id number] >> JUDITH FRIAS Fri May 21, 2001 5:27 PM CALL INITIATED. Contact: This office note has been dictated. [facility] Document Id: [id number] documented in this encounter Plan of Treatment Not on filedocumented as of this encounter Visit Diagnoses Not on filedocumented in this encounter
--- OUTSIDE RECORDS SUMMARY | 2021-10-24 10:37 | XMS_ITS | Encounter Summary ---
:1945 Author Organization [facility] Address [address] [place] [address] Care Team Providers Name Role Phone Unavailable [...]
--- OUTSIDE RECORDS SUMMARY | 2021-10-24 10:37 | XMS_ITS | Encounter Summary ---
:1945 Author Organization [facility] Address [address] [place] [address] Care Team Providers Name Role Phone Unavailable Primary Care Provider Unavailable Encounter Details Date Type Department Care Team Description 03/22/2001 - Hospital Encounter HX NO MAPPING Miguelina Bianchi, 03/23/2001 D.OJairo [address] [place], [place] [address] (Wo rk) Social History [...]
--- OUTSIDE RECORDS SUMMARY | 2021-10-24 10:37 | XMS_ITS | Encounter Summary ---
:1945 Author Organization [facility] Address [address] [place] [address] Care Team Providers Name Role Phone Unavailable Primary Care Provider Unavailable Encounter Details Date Type Department Care Team Description 04/22/2001 Hospital [facility] Dian Bianchi, Hern[place] [address] [place], [place] [address] (Wo rk) Social History [...] Provider Ser - 04/22/2001 10:00 AM CST [id number] Addended by: PAWEL SCHMITT on: 04/23/2001,3:12 PM [...] Miguelina Bianchi D.O./plsD: 04/22/2001T: 04/23/2001 Source: [facility] RWHXTRANSXSYS Document Id: [id number] documented in this encounter Plan of Treatment Not on filedocumented as of this encounter Visit Diagnoses Not on filedocumented in this encounter
--- OUTSIDE RECORDS SUMMARY | 2021-10-24 10:37 | XMS_ITS | Encounter Summary ---
:1945 Author Organization [facility] Address [address] [place] [address] Care Team Providers Name Role Phone Unavailable [...] Historical Provider Ser - 03/10/2001 12:00 AM INSTRUMENTATION CONTROLS ENGINEER [id number] *-*-*-*-* SEE SCANNED REPORT *-*-*-*-* Source: [facility] RWHXTRANSXSYS Document Id: [id number] documented in this encounter Plan of Treatment Not on filedocumented as of this encounter Visit Diagnoses Not on filedocumented in this encounter
--- OUTSIDE RECORDS SUMMARY | 2021-10-24 10:37 | XMS_ITS | Encounter Summary ---
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
--- OUTSIDE RECORDS SUMMARY | 2021-10-24 10:37 | XMS_ITS | Encounter Summary ---
:1945 Author Organization [facility] Address [address] [place] [address] Care Team Providers Name Role Phone Unavailable Primary Care Provider Unavailable Encounter Details Date Type Department Care Team Description 04/08/2001 Hospital Encounter [facility] SURGCLDian Marks, [place] [place], [place] [address] (Wo rk) Social History [...] Provider Ser - 04/08/2001 9:00 AM CST [id number] Marcial is here s/p laprascopic repair of [...] to work at annabelle t time. Source: [facility] RWHXTRANSXSYS Document Id: [id number] documented in this encounter Plan of Treatment Not on filedocumented as of this encounter Visit Diagnoses Not on filedocumented in this encounter
--- OUTSIDE RECORDS SUMMARY | 2021-10-24 10:37 | XMS_ITS | Encounter Summary ---
:1945 Author Organization [facility] Address [address] [place] [address] Care Team Providers Name Role Phone Unavailable Primary Care Provider Unavailable Encounter Details Date Type Department Care Team Description 03/18/2001 Hospital [facility] SURGCLDian Marks D.O. [address] [place], [place] [address] (Wo rk) Social History [...] Provider Ser - 03/18/2001 3:00 PM CST [id number] Addended by: PAWEL SCHMITT on: 03/31/2001,9:50 AM Comment: tranxModules accepted: Progress Not esThis office note has been dictated.Marcial Adams [id number] is a patient well-known to me who I have seen in [place] in the past. She is a 55 [...] general anesthetic.30 minutes of time was spent family and marriage counsellor ing this patient. Marlon Bianchi D.O./plsD: 03/18/01T: 03/29/01 Source[facility] Document Id: [id number] documented in this encounter Plan of Treatment Not on filedocumented as of this encounter Visit Diagnoses Not on filedocumented in this encounter
--- OUTSIDE RECORDS SUMMARY | 2021-10-24 10:37 | XMS_ITS | Encounter Summary ---
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 SSS [id number], LURENE : [id number]/OPERATIVE REPORTPREOPE RATIVE DIAGNOSIS:Recurrent incisional hernia.POSTOPERATIVE DIAGNOSIS:Recurrent incisional [...] procedure well and there are no apparent complications.LLT:[id number]. 2-4-0 2 Dustin Bianchi D.O. [facility] Document Id: [id number] documented in this encounter Plan of Treatment Not on filedocumented as of this encounter Visit Diagnoses Not on filedocumented in this encounter
--- OUTSIDE RECORDS SUMMARY | 2021-10-24 10:37 | XMS_ITS | Encounter Summary ---
:1945 Author Organization [facility] Address [address] [place] [address] Care Team Providers Name Role Phone Unavailable Primary Care Provider Unavailable Encounter Details Date Type Department Care Team Description 07/07/2001 Hospital Encounter HX NO MAPPING Provider, Historical [...] Miscellaneous - Conversion, Historical Provider Ser - 07/07/2001 12:00 AM CDT [id number] *-*-*-*-* SEE SCANNED REPORT *-*-*-*-* Source: [facility] RWHXTRANSXSYS Document Id: [id number] documented in this encounter Plan of Treatment Not on filedocumented as of this encounter Visit Diagnoses Not on filedocumented in this encounter
--- OUTSIDE RECORDS SUMMARY | 2021-10-24 10:37 | XMS_ITS | Encounter Summary ---
:[address] [facility] Address [address] [place] [address] Care Team Providers Name Role Phone Unavailable Primary Care Provider Unavailable Encounter Details Date Type Department Care Team Description 05/21/2001 Hospital Encounter [facility] SURGCLDian Marks, [place] [place], [place] [address] (Wo rk) Social History [...] Provider Ser - 05/21/2001 12:00 AM CST [id number] >> PAWEL SCHMITT Mon May 24, 2001 [...] with me prn. Miguelina Bianchi D.O./kelly Source: [facility] RWHXTRANSXSYS Document Id: [id number] documented in this encounter Plan of Treatment Not on filedocumented as of this encounter Visit Diagnoses Not on filedocumented in this encounter
--- OUTSIDE RECORDS SUMMARY | 2021-10-24 10:37 | XMS_ITS | Encounter Summary ---
:1945 Author Organization [facility] Address [address] [place] [address] Care Team Providers Name Role Phone Unavailable [...] Provider Ser - 06/09/2001 12:00 AM CDT [id number] *-*-*-*-* SEE SCANNED REPORT *-*-*-*-* Source: [facility] RWHXTRANSXSYS Document Id: [id number] documented in this encounter Plan of Treatment Not on filedocumented as of this encounter Visit Diagnoses Not on filedocumented in this encounter
--- OUTSIDE RECORDS SUMMARY | 2021-10-24 10:37 | XMS_ITS | Encounter Summary ---
:1945 Author Organization [facility] Address [address] [place] [address] Care Team Providers Name Role Phone Unavailable Primary Care Provider Unavailable Encounter Details Date Type Department Care Team Description 05/07/2001 Hospital En[facility] SURGCLDian Marks, [place]an [address] [place], [place] [address] (Wo rk) Social History [...] Provider Ser - 05/07/2001 3:00 PM CST [id number] Marcial is here for her 4 week [...] with meals. F/U in one month. Source: [facility] RWHXTRANSXSYS Document Id: [id number] documented in this encounter Plan of Treatment Not on filedocumented as of this encounter Visit Diagnoses Not on filedocumented in this encounter
--- OUTSIDE RECORDS SUMMARY | 2021-10-24 10:38 | XMS_ITS | Clinical Summary ---
:1945 Author Organization [facility] Address [address] [place] [address] Care Team Providers Name Role Phone Adriane Patel Ronak HOME ECONOMICS EXTENSION WORKER, GIS PROFESSOR Primary Care Provider [phone] Allergies Active Allergy Reactions Severity Noted Date [...] Vitamins-Minerals Contains Zinc (MULTIVITAMIN ADULT PO) per Manager Income Tax. Calcium Carbonate Take 1,000 mg by 0 [...] complication, without long-term current use of insulin ([facility]) Accu-Chek FastClix Use to test 3 100 each 11 11/27/2019 Active Lancets miscIndications: times daily. Type 2 diabetes mellitus with other specified complication, with long-term current use of insulin ([facility]) UNABLE TO FIND Med Name: FISH 0 Active OIL, ZINC, TUMERIC Blood Glucose Monitoring Use as directed 1 each 0 1 Active Suppl w/Device to check blood kitIndications: Type 2 sugars three diabetes mellitus without times daily. complication, with long-term current use of insulin ([facility]) Lancets miscIndications: Use as directed 100 each 11 1 Active Type 2 diabetes mellitus to check blood without complication, sugar three with long-term current times daily. use of insulin ([facility]) Insulin Pen Needle 31G X May check 1-2 100 each 3 10/17/2020 Active 4 MM miscIndications: times a day for Type 2 diabetes mellitus diabetes without complication, with long-term current use of insulin ([facility]) metFORMIN XR Take 1 tablet 90 tablet 3 11/09/2020 Ac tive (GLUCOPHAGE-XR) 500 MG 24 (500 mg total) hr tabletIndications: by mouth 1 (one) Type 2 diabetes mellitus time each day with other specified with dinner complication, with long-term current use of insulin ([facility]) glipiZIDE (GLUCOTROL XL) Take ONE pill 90 tablet 3 11/09/2020 Active 10 MG 24 hr ONCE a day for tabletIndications: Type 2 diabetes Do not diabetes mellitus with crush, chew, or other specified split. complication, with long-term current use of insulin ([facility]) ferrous sulfate 325 (65 Take 1 tablet [...] complication, without long-term current use of insulin ([facility]) glucose blood test Use as 100 each 11 12/14/2020 Active stripIndications: Type 2 instructed to 2 diabetes mellitus with check blood other specified sugar 1-3x day complication, with long-term current use of insulin ([facility]) Lancets miscIndications: Use as 100 each 12/14/2020 Active Type 2 diabetes mellitus instructed to with other specified check blood complication, with sugar 1-3 x day. long-term current use of insulin ([facility]) fluconazole (Diflucan) Take ONE daily 3 tablet [...] use of insulin ([facility]) Lancets (onetouch Microlet Lancets : Check blood sugar 3 times a day. 200 each 03/07/2021 Active ultrasoft) HgbA1c: 02/15/2020 8.6 3 lancetsIndications: Type Last visit: 03/06/2021 2 diabetes mellitus with other specified complication, with long-term current use of insulin ([facility]) Insulin Pen Needle 31G X Use once daily to inject insulin 100 each 03/07/2021 Active 8 MM miscIndications: HgbA1c: 02/15/2020 8.6 3 Type 2 diabetes mellitus Last visit: 03/06/2021 with other specified complication, with long-term current use of insulin ([facility]) ALPRAZolam (XANAX) 0.5 MG TAKE ONE TABLET [...] Added automatically from request for cookie dozier [id number] Type 2 diabetes mellitus with other specified complica tion 08/10/2017 Rheumatoid arthritis 05/12/2017 Paresthesia of skin 03/31/2017 Gout 07/28/2016 Anemia 06/26/2016 Other custodial (current) drug therapy 03/31/2016 Hyperlipidemia 01/14/2016 Chronic coronary artery disease 02/05/2015 Overview: Overview: Coronary Artery Disease (CAD) [place] [employer] Chronic ischemic heart disease 02/05/2015 Overview: Overview: Coronary Artery Disease (CAD) [place] [facility] Subclinical hypothyroidism 10/26/2014 Cervicalgia 10/19/2014 Postoperative urinary tract infection 01/13/2014 Postmenopausal bleeding 11/10/2013 Postmenopausal atrophic vaginitis 08/09/2013 Other osteoporosis 09/14/2002 Encounters Date Type Specialty Care Team Description 07/31/2021 Patient Outreach Family Medicine Abbie Ramesh, Co unseling and RN coordination of care (Primary Dx) from Last 3 Months Immunizations Name Administration [...] Comments Blood Pressure 162/86 03/06/2021 10:17 AM SALES OFFICE ASSISTANT Pulse 72 03/06/2021 10:17 AM SALES OFFICE ASSISTANT Temperature 37 ??C (98.6 ??F) 03/06/2021 9:35 AM SALES OFFICE ASSISTANT Respiratory Rate 14 03/06/2021 9:35 AM SALES OFFICE ASSISTANT Oxygen Saturation 97% 03/06/2021 9:35 AM SALES OFFICE ASSISTANT Inhaled Oxygen Concentration - - Weight 82.6 kg (182 lb) 03/06/2021 9:35 AM SALES OFFICE ASSISTANT Height 160.3 cm (5' 3.11) 03/06/2021 9:35 AM SALES OFFICE ASSISTANT Body Mass Index 32.13 03/06/2021 9:35 AM SALES OFFICE ASSISTANT Plan of Treatment Health Maintenance Due Date Last Done Comments COVID-19 Vaccine (#1) 1945 [facility] [place] 01/12/2021 01/13/2020 Diabetic Foot Exam [...] 03/08/2022 03/08/2021, 12/26/2019, 12/17/2018, Additional history exists Pneumococcal Vaccine: 65+ Completed 08/16/2019, 06/21/2014 , Years 01/28/2008 Pneumococcal Vaccine: Completed 08/16/2019, 06/21/2014, Pediatrics (0 to 5 Years) 01/28/2008 and At-Risk Patients (6 to 64 Years) HPV Vaccines Aged Out No longer eligib phil based on patient 's age to complete this topic Goals Goal Patient Goal Associated Recent Patient-Stated? Author Type Problems Progress Routine Health General No change Peter Monzon (02/05/2021 Abbie Murray 11:19 AM SALES OFFICE ASSISTANT) RN Note: Formatting of this note is differe nt from the original. Routine Health Management Care Team Patient Care Team: Corrine Vazquez MD as PCP - General ([facility] Medicine) Yossi Potts, RN as Registered Nurse (Diabetes Education) Abbie Ramesh, RN as Business Education Instructor Future Scheduled Appointments No future appointments. Health Maintenance Health Maintenance Topic Date Due Urine Protein Screening 05/31/2020 Lipid Panel 09/05/2020 Glaucoma Screening 67+ Yr 12/25/2020 Ophthalmology Exam 12/25/2020 [facility] Annual Wellness 01/12/2021 Hemoglobin A1C 01/24/2021 Diabetic Foot Exam 03/16/2021 Colorectal Cancer Screening: Colonoscop y 05/21/2021 Fall Risk Performed 06/05/2021 Mammogram 12/03/2021 COVID-19 Vaccine Com[place] [facility] Pneumococcal Vaccine: <64 Completed [facility] Pneumococcal Vaccine: 65+ Years Com pleted HPV Vaccines Aged Out Notes: Due: Urine Protein screening Eye exam AWV A1C Lipid panel Diabetes Management General No change (02/05/2021 11:17 AM Abbie Monzon, RN SALES OFFICE ASSISTANT) Note: Formatting of this note is [...] (02/05/2021 No Abbie Ramesh RN 11:14 AM SALES OFFICE ASSISTANT) Note: Formatting of this note is [...] Phone Addre ss Type Group MEDICARE MEDICARE [id number] 2010-Presen [address] [place] [address] BCBS OF BCBS LIME [id number] 2016-[employer] [address] [address] [place], [place] MEDICARE NON [id number] ADVANTAGE Care Teams Veterans Services Specialist Relationship Specialty Start Date End Date Adriane Patel, HOME ECONOMICS EXTENSION WORKER, GIS PROFESSOR PCP - General Family Medicine 08/20/[address] [place] [address] [place] [address]
--- OUTSIDE RECORDS SUMMARY | 2021-10-24 10:39 | XMS_ITS | Encounter Summary ---
:1945 Author Organization [facility] Address [address] [place] [address] Care Team Providers Name Role Phone Corrine Vazquez MD Primary Care Provider Encounter Details Date Type Department Care Team Description 12/11/2020 Telephone [place] Corrine Vazquez MD [address] [place], [place] [address] [place], [place] [phone] (Wo rk) Social History Tobacco Use Types [...] 12/11/2020 4:42 PM CDT Referral faxed to [facility] HERNAN[facility] as requested. Telephone Encounter - Margareth Sanchez RN - 12/11/2020 4:26 PM CDT Please re fax referral for [facility] HERNANDEZ documented in this encounter Plan of Treatment Not on filedocumented as of this encounter Goals Goal Patient Goal Associated Recent Patient-Stated? Author Type Problems Progress Routine Health General No change No Domitila, Peter (02/05/2021 Abbie Murray, 11:19 AM QUALITY CONTROL COORDINATOR) RN Note: Formatting of this note is differe nt from the original. Routine Health Management Care Team Patient Care Team: Corrine Vazquez MD as PCP - General ([facility] Medicine) Yossi Potts RN as Registered Nurse (Diabetes Education) Abbie Ramesh RN as Utility System Repairer Future Scheduled Appointments No future appointments. Health Maintenance Health Maintenance Topic Date Due Urine Protein Screening 05/31/2020 Lipid Panel 09/05/2020 Glaucoma Screening 67+ Yr 12/25/2020 Ophthalmology Exam 12/25/2020 [facility] [place] 01/12/2021 Hemoglobin A1C 01/24/2021 Diabetic Foot Exam 03/16/2021 Colorectal Cancer Screening: Colonoscop y 05/21/2021 Fall Risk Performed 06/05/2021 Mammogram 12/03/2021 COVID-19 Vaccine Com[place] [facility] Pneumococcal Vaccine: <64 Completed [facility] Pneumococcal Vaccine: 65+ Years Com pleted HPV Vaccines Aged Out Notes: Due: Urine Protein screening Eye exam AWV A1C Lipid panel Diabetes Management General No change (02/05/2021 11:17 AM Abbie Monzon, RN QUALITY CONTROL COORDINATOR) Note: Formatting of this note is [...] track (02/05/2021 Abbie Monzon RN 11:14 AM QUALITY CONTROL COORDINATOR) Note: Formatting of this note is differe nt from the original. Cardiovascular Management Essential hypertension Chronic coronary artery disease Managed by (PCP; Cardiology; [facility]) Dr. Ronak lozoya MD (PCP)/Dr. Tena [...] on filedocumented in this encounter Care Teams Med Peds Relationship Specialty Start Date End Date Corrine Vazquez MD PCP - General Family Medicine 07/07/19 08/19/[address] [place] [address] documented as of this encounter
--- OUTSIDE RECORDS SUMMARY | 2021-10-24 10:39 | XMS_ITS | Encounter Summary ---
:1945 Author Organization [facility] Address [address] [place] [address] Care Team Providers Name Role Phone Corrine Vazquez MD Primary Care Provider Reason for Referral Consultation (Routine) - Closed Specialty Diagnoses / Procedures Referred By Contact Refer red To Contact Diagnoses Early satiety Antonio Shipman MD [facility] [address] [place], [place] [address] [facility] [phone] [place] [address] Fax: Referral ID Status Reason Start Date Expiration Date Visits Requ ested Visits Authorized [id number] Closed 12/06/2020 2021 1 1 Reason for Visit Reason Onset Date Comments endo 11/21/2020 Encounter Details Date Type Department Care Team Description 11/21/2020 Telephone [place] Corrine Vazquez MD [facility] [address] [facility] [address] [place], [place] [address] [place], [place] [phone] (Wo rk) Social History Tobacco Use Types [...] 12/23/2018 organizations such as congregation groups, unions, [employer] or athletic groups, or school groups? How [...] has not heard anything from [facility] in [place] [facility] yet. CC called and spoke [facility] and was told there was no paperwork that was received recently for Marcial. Please re-fax the referral to [phone]. Thank you Telephone Encounter - Phoebe Donohue - 12/06/2020 3:24 PM CDT Referral faxed. Telephone Encounter - Margareth Sanchez RN - 12/06/2020 2:04 PM CDT Please fax orders to [facility] in [place]. Addendum Note - Antonio Shipman MD - 12/06/2020 11:08 AM CDT Addended [...] into her stomach for stomach problems like ulcersand so forth. She is not due for [...] Peter Ramesh (02/05/2021 Abbie Murray, 11:19 AM CONCRETE PAVEMENT INSTALLER) RN Note: Formatting of this note is differe nt from the original. Routine Health Management Care Team Patient Care Team: Corrine Vazquez MD as PCP - General ([facility]) Yossi Potts, RN as Registered Nurse (Diabetes Education) Abbie Ramesh RN as Call Center Receptionist Future Scheduled Appointments No future appointments. Health Maintenance Health Maintenance Topic Date Due Urine Protein Screening 05/31/2020 Lipid Panel 09/05/2020 Glaucoma Screening 67+ Yr 12/25/2020 Ophthalmology Exam 12/25/2020 [facility] [place] 01/12/2021 Hemoglobin A1C 01/24/2021 Diabetic Foot Exam 03/16/2021 Colorectal Cancer Screening: Colonoscop y 05/21/2021 Fall Risk Performed 06/05/2021 Mammogram 12/03/2021 COVID-19 Vaccine Completed [facility] Pneumococcal Vaccine: <64 Completed [facility] Pneumococcal Vaccine: 65+ Years Com pleted HPV Vaccines Aged Out Notes: Due: Urine Protein screening Eye exam AWV A1C Lipid panel Diabetes Management General No change (02/05/2021 11:17 AM No Abbie Ramesh RN CONCRETE PAVEMENT INSTALLER) Note: Formatting of this note is differe [...] (02/05/2021 No Abbie Ramesh RN 11:14 AM CONCRETE PAVEMENT INSTALLER) Note: Formatting of this note is differe [...] Primary documented in this encounter Care Teams Fish Hatchery Assistant Relationship Specialty Start Date End Date Corrine Vazquez MD PCP - General Family Medicine 07/07/19 08/19/[address] [place] [address] documented as of this encounter
--- OUTSIDE RECORDS SUMMARY | 2021-10-24 10:39 | XMS_ITS | Encounter Summary ---
:1945 Author Organization [facility] Address [address] [place] [address] Care Team Providers Name Role Phone Corrine Vazquez MD Primary Care Provider Reason for Visit Consultation (Routine) - Closed Specialty Diagnoses / Procedures Referred By Contact Refer red To Contact Family Medicine Diagnoses Enrolled in chronic care management Essential hypertension Type 2 diabetes mellitus with other specified complication, with long-term current use of insulin (HCC) Mixed hyperlipidemia Corrine Vazquez MD Care Coordination [address] [facility] [address] [place] [address], [place] [phone] Referral ID Status Reason Start Date Expiration Date Visits V isits Requested Authorized [id number] Closed Specialty 02/21/2020 03/18/2021 99 99 Services Required Encounter Details Date Type Department Care Team Description 01/08/2021 Patient Outreach Care Coordination Abbie Ramesh [facility] and [address] [place] [address] Terri RN coordination of care [place], [place] [phone] [facility] (Primary Dx) [phone] [place] [address] Social History Tobacco Use Types [...] 12/23/2018 organizations such as orthodox groups, unions, S[employer] or athletic groups, or school groups? How [...] is first attempt to call this month. HER INSTRUMENTAL documented in this encounter Plan of Treatment Not on filedocumented as of this encounter Goals Goal Patient Goal Associated Recent Patient-Stated? Author Type Problems Progress Routine Health General No change No Peter Ramesh (02/05/2021 Abbie Murray, 11:19 AM TEACHER INSTRUMENTAL) RN Note: Formatting of this note is differe nt from the original. Routine Health Management Care Team Patient Care Team: Corrine Vazquez MD as [facility] - [facility] Yossi Potts, RN as Registered Nurse (Diabetes Education) Abbie Ramesh RN as Green Tire Inspector Future Scheduled Appointments No future appointments. Health Maintenance Health Maintenance Topic Date Due Urine Protein Screening 05/31/2020 Lipid Panel 09/05/2020 Glaucoma Screening 67+ Yr 12/25/2020 Ophthalmology Exam 12/25/2020 [facility] Annual Wellness 01/12/2021 Hemoglobin A1C 01/24/2021 Diabetic Foot Exam 03/16/2021 Colorectal Cancer Screening: Colonoscop y 05/21/2021 Fall Risk Performed 06/05/2021 Mammogram 12/03/2021 COVID-19 Vaccine Completed [facility] Pneumococcal Vaccine: <64 Completed [facility] Pneumococcal Vaccine: 65+ Years Com pleted HPV Vaccines Aged Out Notes: Due: Urine Protein screening Eye exam AWV A1C Lipid panel Diabetes Management General No change (02/05/2021 11:17 AM No Abbie Ramesh, RN TEACHER INSTRUMENTAL) Note: Formatting of this note is differe [...] (02/05/2021 No Abbie Ramesh, RN 11:14 AM TEACHER INSTRUMENTAL) Note: Formatting of this note is differe nt from the original. Cardiovascular Management Essential hypertension Chronic coronary artery disease Managed by (PCP; Cardiology; [facility]) Dr. Ronak lozoya MD (PCP)/Dr. Tena [...] imary documented in this encounter Care Teams Safe And Vault Mechanic Relationship Specialty Start Date End Date Corrine Vazquez MD PCP - General Family Medicine 07/07/19 08/19/[address] [place] [address] documented as of this encounter
--- OUTSIDE RECORDS SUMMARY | 2021-10-24 10:39 | XMS_ITS | Encounter Summary ---
:1945 Author Organization [facility] Address [address] [place] [address] Care Team Providers Name Role Phone Corrine Vazquez MD Primary Care Provider Reason for Visit Consultation (Routine) - Authorized Specialty Diagnoses / Procedures Referred By Contact Refer red To Contact Family Medicine Diagnoses Enrolled in chronic care management Essential hypertension Type 2 diabetes mellitus with other specified complication, with long-term current use of insulin (HCC) Mixed hyperlipidemia Corrine Vazquez MD Care Coordination [address] [place] [phone] Referral ID Status Reason Start Expiration Visits Visits Date Date Requested Authorized [id number] Authorized Specialty 02/16/2021 03/18/2022 99 99 Services Required Encounter Details Date Type Department Care Team Description 06/19/2021 Patient Outreach [place] Care Coordination Abbie Ramesh, [address] [place] [address] [place] [address] [place] [phone] Social History Tobacco Use Types Packs/Day Years [...] or relatives? How often do you attend faith or More than 4 times per year 12/23/2018 jew services? Do you belong to any clubs or No 12/23/2018 organizations such as faith groups, unions, fraternal or athletic groups, or [...] Peter Monzon (02/05/2021 Abbie Murray, 11:19 AM ROUTEMAN) RN Note: Formatting of this note is differe nt from the original. Routine Health Management Care Team Patient Care Team: Corrine Vazquez MD as [facility] - [facility] Yossi Potts, RN as Registered Nurse (Diabetes Education) Abbie Ramesh RN as Medical Secretary Receptionist Future Scheduled Appointments No future appointments. [...] (02/05/2021 11:17 AM No Abbie Ramesh, RN ROUTEMAN) Note: Formatting of this note is differe [...] (02/05/2021 No Abbie Ramesh, RN 11:14 AM ROUTEMAN) Note: Formatting of this note is differe nt from the original. Cardiovascular Management Essential hypertension Chronic coronary artery disease Managed by (PCP; Cardiology; [facility]) Dr. Ronak lozoya MD [...] on filedocumented in this encounter Care Teams Rail Director Relationship Specialty Start Date End Date Corrine Vazquez MD PCP - General Family Medicine 07/07/19 08/19/[address] [place] [address] documented as of this encounter
--- OUTSIDE RECORDS SUMMARY | 2021-10-24 10:39 | XMS_ITS | Encounter Summary ---
:1945 Author Organization [facility] Address [address] [place] [address] Care Team Providers Name Role Phone Corrine Vazquez MD Primary Care Provider Reason for Visit Reason Onset Date Comments prescription location change 12/12/2020 Encounter Details Date Type Department Care Team Description 12/12/2020 Telephone [place] Corrine Vazquez prescription location [address] [facility] [address] [place] change [place], [place] [id number] [place] [address] [place] [address] Social History Tobacco Use Types Packs/Day Years [...] strips and lancets refilled. The pharmacy in [place] she had been using is closing. Pt would like these sent to [facility] now. Please call Pt at [phone] to advise. documented in this encounter Plan of Treatment Not on filedocumented as of this encounter Goals Goal Patient Goal Associated Recent Patient-Stated? Author Type Problems Progress Routine Health General No change No Domitila, Management (02/05/2021 Abbie Murray, 11:19 AM OFFICE MANAGER RECEPTIONIST) RN Note: Formatting of this note is differe nt from the original. Routine Health Management Care Team Patient Care Team: Corrine Vazquez MD as PCP - General ([facility] Medicine) Yossi Potts, RN as Registered Nurse (Diabetes Education) Abbie Ramesh, RN as Bell Person Future Scheduled Appointments No future appointments. [...] [facility] Pneumococcal Vaccine: <64 Completed [facility] Pneumococcal Vaccine: 65+ Years Com pleted HPV Vaccines Aged Out Notes: Due: Urine Protein screening Eye exam AWV A1C Lipid panel Diabetes Management General No change (02/05/2021 11:17 AM No Abbie Ramesh, RN OFFICE MANAGER RECEPTIONIST) Note: Formatting of this note is differe [...] (02/05/2021 No Abbie Ramesh RN 11:14 AM OFFICE MANAGER RECEPTIONIST) Note: Formatting of this note is differe [...] Primary documented in this encounter Care Teams Blockmason Relationship Specialty Start Date End Date Corrine Vazquez MD PCP - General Family Medicine 07/07/19 08/19/[address] [place] [address] documented as of this encounter
--- OUTSIDE RECORDS SUMMARY | 2021-10-24 10:39 | XMS_ITS | Encounter Summary ---
:1945 Author Organization [facility] Address [address] [place] [address] Care Team Providers Name Role Phone Corrine Vazquez MD Primary Care Provider Reason for Visit Consultation (Routine) - Authorized Specialty Diagnoses / Procedures Referred By Contact Refer red To Contact Family Medicine Diagnoses Enrolled in chronic care management Essential hypertension Type 2 diabetes mellitus with other specified complication, with long-term current use of insulin (HCC) Mixed hyperlipidemia Corrine Vazquez MD Care Coordination [address] [place] [address] 5 [phone] Referral ID Status Reason Start Expiration Visits Visits Date Date Requested Authorized [id number] Authorized Specialty 02/16/2021 03/18/2022 99 99 Services Required Encounter Details Date Type Department Care Team Description 03/15/2021 Patient Outreach SE Care Coordination Abbie Ramesh, [address] [place] [address] [place] [address] [place] [phone] Social History Tobacco Use Types Packs/Day Years [...] is first attempt to call this month. LAB TECHNOLOGIST documented in this encounter Plan of Treatment Not on filedocumented as of this encounter Goals Goal Patient Goal Associated Recent Patient-Stated? Author Type Problems Progress Routine Health General No change Peter Monzon (02/05/2021 Abbie Murray, 11:19 AM CATH LAB TECHNOLOGIST) RN Note: Formatting of this note is differe nt from the original. Routine Health Management Care Team Patient Care Team: Corrine Vazquez MD as PCP - General ([facility]) Yossi Potts, RN as Registered Nurse (Diabetes Education) Abbie Ramesh RN as Ediphone Operator Future Scheduled Appointments No future appointments. Health Maintenance Health Maintenance Topic Date Due Urine Protein Screening 05/31/2020 Lipid Panel 09/05/2020 Glaucoma Screening 67+ Yr 12/25/2020 Ophthalmology Exam 12/25/2020 [facility] Annual Wellness 01/12/2021 Hemoglobin A1C 01/24/2021 Diabetic Foot Exam 03/16/2021 Colorectal Cancer Screening: Colonoscop y 05/21/2021 Fall Risk Performed 06/05/2021 Mammogram 12/03/2021 COVID-19 Vaccine Completed [facility] Pneumococcal Vaccine: <64 Completed [facility] Pneumococcal Vaccine: 65+ Years Com pleted HPV Vaccines Aged Out Notes: Due: Urine Protein screening Eye exam AWV A1C Lipid panel Diabetes Management General No change (02/05/2021 11:17 AM No Abbie Ramesh, RN CATH LAB TECHNOLOGIST) Note: Formatting of this note is differe [...] (02/05/2021 No Abbie Ramesh, RN 11:14 AM CATH LAB TECHNOLOGIST) Note: Formatting of this note is differe nt from the original. Cardiovascular Management Essential hypertension Chronic coronary artery disease Managed by (PCP; Cardiology; [facility]) Dr. Ronak lozoya MD (PCP)/Dr. [...] on filedocumented in this encounter Care Teams Power Plant Installer Relationship Specialty Start Date End Date Corrine Vazquez MD PCP - General Family Medicine 07/07/19 08/19/[address] [place] [address] documented as of this encounter
--- OUTSIDE RECORDS SUMMARY | 2021-10-24 10:39 | XMS_ITS | Encounter Summary ---
:1945 Author Organization [facility] Address [address] [place] [address] Care Team Providers Name Role Phone Corrine Vazquez MD Primary Care Provider Reason for Visit Reason Onset Date Comments med question 03/15/2021 Encounter Details Date Type Department Care Team Description 03/15/2021 Telephone [place] Corrine Vazquez MD med question [address] [place], [place] [address] [place], [place] [phone] (Wo rk) Social History Tobacco Use Types [...] 12/23/2018 organizations such as catholic groups, unions, fraternal or athletic groups, [...] this time. She will start the hydrochlorothiazide. TECHNOLOGY INSTRUCTOR Telephone Encounter - Corrine Vazquez MD - 03/15/2021 3:07 PM CST Have she does not want to start taking the amlodipine because of side effect previously that is okay. However she should start taking the hydrochlorothiazide is a very small pill 12.5 mg tablet I thinkshe will do okay with that. Then she should come back to the office in 2 or 3 weeks for another blood pressure check. We will have to consider a little different medication at that time depending aboutwhat her blood pressure is. Any questions or problems let me know. If you could adolfo her chart as having a reaction to the amlodipine. TECHNOLOGY INSTRUCTOR Telephone Encounter - Margareth Sanchez RN - 03/15/2021 2:57 PM CST Patient stated she was on Amlodipine earlier this year and she felt terrible on it, she said she wasso fatigued, she could barely walk, she saw a boiling tub operator because she thought something was wrong with her heart. When she stopped the Amlodipine she felt better within 2 days. She wonders if there edmond different medication she can take for her BP. She did say she hasn't started the hydrochlorothiazide because she is scheduled for an EGD Thursday and she doesn't want to start anything prior to that procedure. Please advise. TECHNOLOGY INSTRUCTOR Telephone Encounter - Margareth Sanchez RN - 03/15/2021 1:59 PM CST LMTC to discuss medications. TECHNOLOGY INSTRUCTOR Telephone Encounter - Brenda House - 03/15/2021 12:01 PM CST Pt has questions about amlodipine. Pt thinks that she is not suppose to be taking. TECHNOLOGY INSTRUCTOR documented in this encounter Plan of Treatment Not on filedocumented as of this encounter Goals Goal Patient Goal Associated Recent Patient-Stated? Author Type Problems Progress Routine Health General No change No Peter Ramesh (02/05/2021 Abbie Murray, 11:19 AM FIRE TECHNOLOGY INSTRUCTOR) RN Note: Formatting of this note is differe nt from the original. Routine Health Management Care Team Patient Care Team: Corrine Vazquez MD as PCP - General ([facility] Medicine) Yossi Potts, RN as Registered Nurse (Diabetes Education) Abbie Ramesh, RN as Kiln Setter Future Scheduled Appointments No future appointments. Health Maintenance Health Maintenance Topic Date Due Urine Protein Screening 05/31/2020 Lipid Panel 09/05/2020 Glaucoma Screening 67+ Yr 12/25/2020 Ophthalmology Exam 12/25/2020 [facility] Annual Wellness 01/12/2021 Hemoglobin A1C 01/24/2021 Diabetic Foot Exam 03/16/2021 Colorectal Cancer Screening: Colonoscop y 05/21/2021 Fall Risk Performed 06/05/2021 Mammogram 12/03/2021 COVID-[address] [facility] Pneumococcal Vaccine: <[address] [facility] Pneumococcal Vaccine: 65+ Years Com pleted HPV Vaccines Aged Out Notes: Due: Urine Protein screening Eye exam AWV A1C Lipid panel Diabetes Management General No change (02/05/2021 11:17 AM Abbie Monzon, RN FIRE TECHNOLOGY INSTRUCTOR) Note: Formatting of this note is differe [...] (02/05/2021 No Abbie Ramesh RN 11:14 AM FIRE TECHNOLOGY INSTRUCTOR) Note: Formatting of this note is differe nt from the original. Cardiovascular Management Essential hypertension Chronic coronary artery disease Managed by (PCP; Cardiology; [facility]) Dr. Ronak lozoya MD (PCP)/Dr. Tena [...] on filedocumented in this encounter Care Teams Education Spec Relationship Specialty Start Date End Date Corrine Vazquez MD PCP - General Family Medicine 07/07/19 08/19/[address] [place] [address] documented as of this encounter
--- OUTSIDE RECORDS SUMMARY | 2021-10-24 10:39 | XMS_ITS | Encounter Summary ---
:[address] [facility] Address [address] [place] [address] Care Team Providers Name Role Phone Corrine Herrera MD Primary Care Provider Reason for Visit Reason Comments Diabetic Review Encounter Details Date Type Department Care Team Description 03/06/2021 Office Visit [place] Corrine Herrera Type 2 diabetes mellitus wit h other specified complication, with long-term current use of insulin (HCC) (Primary Dx); [address] [place] Primary hypertension; [place], [place] [address] Hypothyroidism, unspecified type [phone] [place] [address] Social History Tobacco Use Types Packs/Day Years [...] Comments Blood Pressure 162/86 03/06/2021 10:17 AM CONCRETE MIXING TRUCK DRIVER Pulse 72 03/06/2021 10:17 AM CONCRETE MIXING TRUCK DRIVER Temperature 37 ??C (98.6 ??F) 03/06/2021 9:35 AM CONCRETE MIXING TRUCK DRIVER Respiratory Rate 14 03/06/2021 9:35 AM CONCRETE MIXING TRUCK DRIVER Oxygen Saturation 97% 03/06/2021 9:35 AM CONCRETE MIXING TRUCK DRIVER Inhaled Oxygen Concentration - - Weight 82.6 kg (182 lb) 03/06/2021 9:35 AM CONCRETE MIXING TRUCK DRIVER Height 160.3 cm (5' 3.11) 03/06/2021 9:35 AM CONCRETE MIXING TRUCK DRIVER Body Mass Index 32.13 03/06/2021 9:35 AM CONCRETE MIXING TRUCK DRIVER documented in this encounter Progress Notes Corrine [...] value 8.6. She finds that her sugars drop a little too much when she takes much more insulin than what she is currently on. She had been previously taking her insulin at nighttime and had problems in the morning time with low sugars. We have switched her to taking her insulin in the morning time and she has not had any further problems with this. We have discussed with her that her [...] foods such as proteins and vegetables and what willhappen with this. If she is unable to get her A1c improved then we will work with her increasing her insulin slowly but surely as I think she will tolerate this better. HYPERTENSION she has had some reactions or side effects to beta-blockers plus the THERON inhibitors plus the ARB therapy. She currently is on no medications but her blood pressure is obviously running toohigh. Therefore we have added the following 2 medications to her blood pressure regimen Hydrochlorothiazide 12.5 mg once daily Norvasc 5 mg once daily We have asked her come back in roughly a month for repeat blood pressure check. RHEUMATOID ARTHRITIS patient has a ship cleaner to adjust all of her rheumatological medications. [...] forth to be sent to [facility] in [facility] as it would be better covered there as compared to her current pharmacy. All of her other medications she like to still go to the local pharmacy. Review of Systems Objective Physical Exam Assessment/Plan Diagnoses and all orders for this visit: Type 2 diabetes mellitus with other specified complication, with long-term current use of insulin ([facility]) Primary hypertension - hydroCHLOROthiazide (HYDRODIURIL) [...] Order her diabetic supplies through [facility] in [place] CONSULT TIME 25 minutes on old 25 minutes was spent in review of her chart her medications her ambulatory test and so forth RETE MIXING TRUCK DRIVER Lana Bledsoe LPN - 03/06/2021 9:40 AM CST Nurse Note [facility] RETE MIXING TRUCK DRIVER Corrine Herrera MD - 03/06/2021 9:40 AM CST You can fax the DME for her diabetic supplies to [facility] in [place]. Then call the patient let her know that she can pick up driver her diabetic supplies at [facility] in [place]. [facility]. RETE MIXING TRUCK DRIVER documented in this encounter Miscellaneous Notes Addendum Note - Lana Bledsoe LPN - 03/06/2021 9:40 AM CONCRETE MIXING TRUCK DRIVER Addended by: LANA BLEDSOE on: 03/07/2021 10:56 AM Modules accepted: Orders RETE MIXING TRUCK DRIVER Addendum Note - Corrine Herrera MD - 03/06/2021 9:40 AM CONCRETE MIXING TRUCK DRIVER Addended by: Corrine HERRERA on: 03/07/2021 03:08 PM Modules accepted: Orders RETE MIXING TRUCK DRIVER documented in this encounter Plan [...] Domitila, Management (02/05/2021 Abbie Murray, 11:19 AM CONCRETE MIXING TRUCK DRIVER) RN Note: Formatting of this note is differe nt from the original. Routine Health Management Care Team Patient Care Team: Corrine Herrera MD as PCP - General ([facility] Medicine) Yossi Potts, RN as Registered Nurse (Diabetes Education) Abbie Ramesh, RN as Label Stamper Future Scheduled Appointments No future appointments. Health Maintenance Health Maintenance Topic Date Due Urine Protein Screening 05/31/2020 Lipid Panel 09/05/2020 Glaucoma Screening 67+ Yr 12/25/2020 Ophthalmology Exam 12/25/2020 [facility] Annual Wellness 01/12/2021 Hemoglobin A1C 01/24/2021 Diabetic Foot Exam 03/16/2021 Colorectal Cancer Screening: Colonoscop y 05/21/2021 Fall Risk Performed 06/05/2021 Mammogram 12/03/2021 COVID-19 Vaccine Completed [facility] Pneumococcal Vaccine: <64 Completed [facility] Pneumococcal Vaccine: 65+ Years Com pleted HPV Vaccines Aged Out Notes: Due: Urine Protein screening Eye exam AWV A1C Lipid panel Diabetes Management General No change (02/05/2021 11:17 AM No Abbie Ramesh, RN CONCRETE MIXING TRUCK DRIVER) Note: Formatting of this note is differe [...] track (02/05/2021 Abbie Monzon RN 11:14 AM CONCRETE MIXING TRUCK DRIVER) Note: Formatting of this note is differe [...] type documented in this encounter Care Teams Tomato Grader Relationship Specialty Start Date End Date Corrine Herrera MD PCP - General Family Medicine 07/07/19 08/19/[address] [place] [address] documented as of this encounter
--- OUTSIDE RECORDS SUMMARY | 2021-10-24 10:39 | XMS_ITS | Encounter Summary ---
:1945 Author Organization [facility] Address [address] [place] [address] Care Team Providers Name Role Phone Corrine [...] Vazquez MD Care Coordination [address] [facility] [address] [place], [place] [phone] Referral ID Status Reason Start Date Expiration Date Visits V isits Requested Authorized [id number] Closed Specialty 02/21/2020 03/18/2021 99 99 Services Required Encounter Details Date Type Department Care Team Description 02/05/2021 Patient Outreach SE Care Coordination Abbie Ramesh Counseling and coordination of care (Primary Dx); [address] [place] [address] Terri RN Type 2 diabetes mellitus with other spec ified complication, with long-term current use of insulin (HCC); [place] [address] [address] Essential hypertension; [phone] [facility] Rheumatoid arthritis, involving unspecif ied site, unspecified whether rheumatoid factor present ([facility]) [place] [address] Social History Tobacco Use Types [...] 12/23/2018 organizations such as mandaeism groups, unions, fraternal or athletic groups, or [...] Pended. Patient aware. Will get drawn after [place] ?? Routine Health Management ?? Follow-up plan: ?? Monthly or sooner if needed Items for Provider to address: ??? Pended labs Goals Today 12/11/20 11/02/20 07/20/20 06/22/20 General ??? Cardiovascular Management On track On track On track On track Cardiovascular Management Essential hypertension Chronic coronary artery disease Managed by (PCP; Cardiology; [facility]) Dr. Taylor MD (PCP)/Dr. Tena MD [...] Nurse (Diabetes Education) Abbie Ramesh RN as Sportsp[employer]ons Future Scheduled Appointments No future appointments. Health Maintenance Health Maintenance Topic Date Due ??? Urine Protein Screening 05/31/2020 ??? Lipid Panel 09/05/2020 ??? Glaucoma Screening 67+ Yr 12/25/2020 ??? Ophthalmology Exam 12/25/2020 ??? [facility] Annual Wellness 01/12/2021 ??? [...] ??? AWV ??? A1C ??? Lipid panel CLE LEASING AND RENTAL MANAGER documented in this encounter Plan of Treatment Not on filedocumented as of this encounter Goals Goal Patient Goal Associated Recent Patient-Stated? Author Type Problems Progress Routine Health General No change No Domitila Management (02/05/2021 Abbie Murray, 11:19 AM VEHICLE LEASING AND RENTAL MANAGER) RN Note: Formatting of this note is differe nt from the original. Routine Health Management Care Team Patient Care Team: Corrine Vazquez MD as PCP - General ([facility] Medicine) Yossi Potts RN as Registered Nurse (Diabetes Education) Abbie Ramesh RN as Sportspersons Future Scheduled Appointments No future appointments. Health Maintenance Health Maintenance Topic Date Due Urine Protein Screening 05/31/2020 Lipid Panel 09/05/2020 Glaucoma Screening 67+ Yr 12/25/2020 Ophthalmology Exam 12/25/2020 [facility] Annual Wellness 01/12/2021 Hemoglobin A1C 01/24/2021 Diabetic Foot Exam 03/16/2021 Colorectal Cancer Screening: Colonoscop y 05/21/2021 Fall Risk Performed 06/05/2021 Mammogram 12/03/2021 COVID-19 Vaccine Completed [facility] Pneumococcal Vaccine: <64 Completed [facility] Pneumococcal Vaccine: 65+ Years Com pleted HPV Vaccines Aged Out Notes: Due: Urine Protein screening Eye exam AWV A1C Lipid panel Diabetes Management General No change (02/05/2021 11:17 AM No Abbie Ramesh, RN VEHICLE LEASING AND RENTAL MANAGER) Note: Formatting of this note is [...] track (02/05/2021 Abbie Monzon RN 11:14 AM VEHICLE LEASING AND RENTAL MANAGER) Note: Formatting of this note is [...] (HCC) documented in this encounter Care Teams Bottle Label Inspector Relationship Specialty Start Date End Date Corrine Vaqzuez MD PCP - General Family Medicine 07/07/19 08/19/[address] [place] [address] documented as of this encounter
--- OUTSIDE RECORDS SUMMARY | 2021-10-24 10:39 | XMS_ITS | Encounter Summary ---
:1945 Author Organization [facility] Address [address] [place] [address] Care Team Providers Name Role Phone Corrine Vazquez MD Primary Care Provider Reason for Visit Reason Onset Date Comments med refill 01/14/2021 Encounter Details Date Type Department Care Team Description 01/14/2021 [facility] Corrine Vazquez MD med refill [address] [address] [place], [place] [phone] (Wo rk) Social History Tobacco Use Types [...] Left generic message that Rx was sent. NG MANAGER Telephone Encounter - Corrine Vazquez MD - 01/16/2021 8:43 AM CST Rx sent to [facility] NG MANAGER Telephone Encounter - Luciana Albarado - 01/15/2021 2:54 PM CST Pt called stating she is out of her fluconazole and is [facility] Please call Pt at [phone] to advise. NG MANAGER Telephone Encounter - Maryse Coker - 01/14/2021 9:49 AM CST Pt is requesting a refill of fluconazole be sent to [facility] in [place]. She is out of this medication. Please advise. Thanks. NG MANAGER documented in this encounter Plan of Treatment Not on filedocumented as of this encounter Goals Goal Patient Goal Associated Recent Patient-Stated? Author Type Problems Progress Routine Health General No change Peter Monzon (02/05/2021 Abbie Murray, 11:19 AM LIVING MANAGER) RN Note: Formatting of this note is differe nt from the original. Routine Health Management Care Team Patient Care Team: Corrine Vazquez MD as PCP - General ([facility] Medicine) Yossi Potts, RN as Registered Nurse (Diabetes Education) Abbie Ramesh RN as Eye Physician Future Scheduled Appointments No future appointments. Health Maintenance Health Maintenance Topic Date Due Urine Protein Screening 05/31/2020 Lipid Panel 09/05/2020 Glaucoma Screening 67+ Yr 12/25/2020 Ophthalmology Exam 12/25/2020 [facility] Annual Wellness 01/12/2021 Hemoglobin A1C 01/24/2021 Diabetic [...] (02/05/2021 11:17 AM No Abbie Ramesh RN LIVING MANAGER) Note: Formatting of this note is [...] (02/05/2021 No Abbie Ramesh RN 11:14 AM LIVING MANAGER) Note: Formatting of this note is [...] vaginitis documented in this encounter Care Teams Foam Dispenser Relationship Specialty Start Date End Date Corrine Vazquez MD PCP - General Family Medicine 07/07/19 08/19/[address] [place] [address] documented as of this encounter
--- OUTSIDE RECORDS SUMMARY | 2021-10-24 10:39 | XMS_ITS | Encounter Summary ---
:1945 Author Organization [facility] Address [address] [place] [address] Care Team Providers Name Role Phone Adriane Patel Ronak CLINICAL QUALITY MANAGER, SIMULATION SPECIALIST Primary Care Provider [phone] Reason for Visit Consultation (Routine) - Authorized Specialty Diagnoses / Procedures Referred By Contact Refer red To Contact Family Medicine Diagnoses Enrolled in chronic care management Essential hypertension Type 2 diabetes mellitus with other specified complication, with long-term current use of insulin (HCC) Mixed hyperlipidemia Corrine Vazquez MD Care Coordination [facility] [address] [address], [place] [phone] Referral ID Status Reason Start Expiration Visits Visits Date Date Requested Authorized [id number] Authorized Specialty 02/16/2021 03/18/2022 99 99 Services Required Encounter Details Date Type Department Care Team Description 07/31/2021 Patient Outreach Care Coordination Abbie Ramesh [facility] and [address] [place] [address] [place] [address] [address] [facility] (Primary Dx) [phone] [place] [address] Social History Tobacco Use Types [...] 12/23/2018 organizations such as druze groups, unions, [employer] or athletic groups, or school groups? How [...] Coordination Contact Date: 08/15/2021 4:39 PM Returned Marcial's voicemail, she states she was given Prednisone by her Regional Account Director for a flare. She states she is concerned her blood sugars are running higher. Took first dose this morning. States this AM she was 131, lunch was 246, and was 331 this afternoon after lunch. Patient states her doctor is at the [facility] and follows with Suresh Patel. Instructed patient to follow up with her PCP as nurse cannot adjust insulin doses and patient does not follow with [facility] any longer. Marcial verbalizes understanding. 8 minutes spent with patient 1 minute spent in chart review Abbie Ramesh RN - 07/31/2021 10:40 AM CDT Care Coordination Sound Editor: Abbie Ramesh RN Date: 08/20/2021 10:48 AM ?? Discontinued patient from [facility] since she no longer gets her Primary Care at [facility]. documented in this encounter Plan of Treatment Not on filedocumented as of this encounter Goals Goal Patient Goal Associated Recent Patient-Stated? Author Type Problems Progress Routine Health General No change Hailee Ramesh Management (02/05/2021 Abbie Murray, 11:19 AM CLINICAL APPLICATION CONSULTANT) RN Note: Formatting of this note is differe nt from the original. Routine Health Management Care Team Patient Care Team: Corrine Vazquez MD as PCP - [facility] ([facility] Yossi Potts, RN as Registered Nurse (Diabetes Education) Abbie Ramesh RN as Hydrography Teacher Future Scheduled Appointments No future appointments. Health Maintenance Health Maintenance Topic Date Due Urine Protein Screening 05/31/2020 Lipid Panel 09/05/2020 Glaucoma Screening 67+ Yr 12/25/2020 Ophthalmology Exam 12/25/2020 [facility] Annual Wellness 01/12/2021 Hemoglobin A1C 01/24/2021 Diabetic Foot Exam 03/16/2021 Colorectal Cancer Screening: Colonoscop y 05/21/2021 Fall Risk Performed 06/05/2021 Mammogram 12/03/2021 COVID-19 Vaccine Completed [facility] Pneumococcal Vaccine: <64 Completed [facility] Pneumococcal Vaccine: 65+ Years Com pleted HPV Vaccines Aged Out Notes: Due: Urine Protein screening Eye exam AWV A1C Lipid panel Diabetes Management General No change (02/05/2021 11:17 AM Abbie Monzon RN CLINICAL APPLICATION CONSULTANT) Note: Formatting of this note is [...] (02/05/2021 No Abbie Ramesh RN 11:14 AM CLINICAL APPLICATION CONSULTANT) Note: Formatting of this note is differe nt from the original. Cardiovascular Management Essential hypertension Chronic coronary artery disease Managed by (PCP; Cardiology; [facility]) Dr. Ronak lozoya MD (PCP)/Dr. [...] imary documented in this encounter Care Teams Outpatient Physical Therapist Relationship Specialty Start Date End Date Adriane Patel, CLINICAL QUALITY MANAGER, SIMULATION SPECIALIST PCP - General Family Medicine 08/20/21 [address] [place] [address] documented as of this encounter
--- OUTSIDE RECORDS SUMMARY | 2021-10-24 10:39 | XMS_ITS | Encounter Summary ---
:1945 Author Organization [facility] Address [address] [place] [address] Care Team Providers Name Role Phone Corrine Vazquez MD Primary Care Provider Reason for Visit Reason Onset Date Comments a1c meter 04/05/2021 Encounter Details Date Type Department Care Team Description 04/05/2021 Telephone [place] Corrine Vazquez MD a1c meter [address] [place], [place] [address] [place], [place] [phone] (Wo rk) Social History Tobacco Use Types [...] LPN - 04/05/2021 10:51 AM CST Noted ENT BLOCK LAYER Telephone Encounter - Luciana Albarado - 04/05/2021 10:25 AM CST Rx faxed to [facility]. ENT BLOCK LAYER Telephone Encounter - Jovanna Swartz RN - 04/05/2021 9:51 AM CST Please fax Rx to [facility]. Thank you. ENT BLOCK LAYER Telephone Encounter - Corrine Vazquez MD - 04/05/2021 9:19 AM CST You can fax the order for her glucometer to her pharmacy. ENT BLOCK LAYER Telephone Encounter - Lana Knight LPN - 04/05/2021 9:11 AM CST Contour Next Meter ENT BLOCK LAYER Telephone Encounter - Clyde Hale - 04/05/2021 8:32 AM CST Pt called to request a new A1c meter(does not need testing strips)plz call pt if you have questions ENT BLOCK LAYER documented in this encounter Plan of Treatment Not on filedocumented as of this encounter Goals Goal Patient Goal Associated Recent Patient-Stated? Author Type Problems Progress Routine Health General No change No Dmoitila, Management (02/05/2021 Abbie Murray, 11:19 AM SEGMENT BLOCK LAYER) RN Note: Formatting of this note is differe nt from the original. Routine Health Management Care Team Patient Care Team: Corrine Vazquez MD as PCP - General ([facility] Medicine) Yossi Potts, RN as Registered Nurse (Diabetes Education) Abbie Ramesh RN as Pocketed Spring Assembler Future Scheduled Appointments No future appointments. [...] (02/05/2021 11:17 AM No Abbie Ramesh, RN SEGMENT BLOCK LAYER) Note: Formatting of this note is differe [...] track (02/05/2021 Abbie Monzon RN 11:14 AM SEGMENT BLOCK LAYER) Note: Formatting of this note is differe nt from the original. Cardiovascular Management Essential hypertension Chronic coronary artery disease Managed by (PCP; Cardiology; [facility]) Dr. Ronak lozoya MD [...] Primary documented in this encounter Care Teams Junior Automation Engineer Relationship Specialty Start Date End Date Corrine Vazquez MD PCP - General Family Medicine 07/07/19 08/19/[address] [place] [address] documented as of this encounter
--- OUTSIDE RECORDS SUMMARY | 2021-10-24 10:39 | XMS_ITS | Encounter Summary ---
:1945 Author Organization [facility] Address [address] [place] [address] Care Team Providers Name Role Phone Corrine Vazquez MD Primary Care Provider Reason for Visit Reason Onset Date Comments flu shot info 11/14/2020 Encounter Details Date Type Department Care Team Description 11/14/2020 Telephone [place] Corrine Vazquez MD flu shot info [address] [place], [place] [address] [place], [place] [phone] (Wo rk) Social History Tobacco Use Types [...] the live dose. Please call Pt at [phone] to advise, leaving a message if no answer. documented in this encounter Plan of Treatment Not on filedocumented as of this encounter Goals Goal Patient Goal Associated Recent Patient-Stated? Author Type Problems Progress Routine Health General No change Hailee Ramesh, Peter (02/05/2021 Abbie Murray, 11:19 AM FIRST COAT SANDER) RN Note: Formatting of this note is differe nt from the original. Routine Health Management Care Team Patient Care Team: Corrine Vazquez MD as PCP - [facility] Yossi Potts, RN as Registered Nurse (Diabetes Education) Abbie Ramesh RN as Berry Grower Future Scheduled Appointments No future appointments. Health Maintenance Health Maintenance Topic Date Due Urine Protein Screening 05/31/2020 Lipid Panel 09/05/2020 Glaucoma Screening 67+ Yr 12/25/2020 Ophthalmology Exam 12/25/2020 [facility] Annual Wellness 01/12/2021 Hemoglobin A1C 01/24/2021 Diabetic Foot Exam 03/16/2021 Colorectal Cancer Screening: Colonoscop y 05/21/2021 Fall Risk Performed 06/05/2021 Mammogram 12/03/2021 COVID-19 Vaccine Completed [facility] Pneumococcal Vaccine: <64 Completed [facility] Pneumococcal Vaccine: 65+ Years Com pleted HPV Vaccines Aged Out Notes: Due: Urine Protein screening Eye exam AWV A1C Lipid panel Diabetes Management General No change (02/05/2021 11:17 AM Abbie Monzon, RN FIRST COAT SANDER) Note: Formatting of this note is differe [...] (02/05/2021 No Abbie Ramesh RN 11:14 AM FIRST COAT SANDER) Note: Formatting of this note is differe [...] on filedocumented in this encounter Care Teams Station Agent Relationship Specialty Start Date End Date Corrine Vazquez MD PCP - General Family Medicine 07/07/19 08/19/[address] [place] [address] documented as of this encounter
--- OUTSIDE RECORDS SUMMARY | 2021-10-24 10:39 | XMS_ITS | Encounter Summary ---
:1945 Author Organization [facility] Address [address] [place] [address] Care Team Providers Name Role Phone Corrine Vazquez MD Primary Care Provider Encounter Details Date Type Department Care Team Description 12/10/2020 Telephone [place] Corrine Vazquez MD [address] [place], [place] [address] [place], [place] [phone] (Wo rk) Social History Tobacco Use Types [...] Peter Monzon (02/05/2021 Abbie Murray 11:19 AM CLINICAL MEDICAL TRANSCRIPTIONIST) RN Note: Formatting of this note is differe nt from the original. Routine Health Management Care Team Patient Care Team: Corrine Vazquez MD as PCP - [facility] Yossi Potts RN as Registered Nurse (Diabetes Education) Abbie Ramesh, RN as Glass Selector Future Scheduled Appointments No future appointments. Health Maintenance Health Maintenance Topic Date Due Urine Protein Screening 05/31/2020 Lipid Panel 09/05/2020 Glaucoma Screening 67+ Yr 12/25/2020 Ophthalmology Exam 12/25/2020 [facility] [place] Wellness 01/12/2021 Hemoglobin A1C 01/24/2021 Diabetic Foot Exam 03/16/2021 Colorectal Cancer Screening: Colonoscop y 05/21/2021 Fall Risk Performed 06/05/2021 Mammogram 12/03/2021 COVID-19 Vaccine Completed [facility] Pneumococcal Vaccine: <64 Completed [facility] Pneumococcal Vaccine: 65+ Years Com pleted HPV Vaccines Aged Out Notes: Due: Urine Protein screening Eye exam AWV A1C Lipid panel Diabetes Management General No change (02/05/2021 11:17 AM Abbie Monzon, RN CLINICAL MEDICAL TRANSCRIPTIONIST) Note: Formatting of this note is differe [...] No Abbie Ramesh RN 11:14 AM CLINICAL MEDICAL TRANSCRIPTIONIST) Note: Formatting of this note is differe [...] filedocumented in this encounter Care Teams Clinical Partner Relationship Specialty Start Date End Date Corrine Vazquez MD PCP - General Family Medicine 07/07/19 08/19/[address] [place] [address] documented as of this encounter
--- OUTSIDE RECORDS SUMMARY | 2021-10-24 10:39 | XMS_ITS | Encounter Summary ---
:1945 Author Organization [facility] Address [address] [place] [address] Care Team Providers Name Role Phone Corrine Vazquez MD Primary Care Provider Reason for Visit Reason Onset Date Comments Labs and Rx 01/24/2021 Encounter Details Date Type Department Care Team Description 01/24/2021 Telephone [place] Corrine Vazquez MD Labs and Rx [address] [place], [place] [address] [place], [place] [phone] (Wo rk) Social History Tobacco Use Types [...] - 01/25/2021 10:26 AM CST Patient informed GER CORPORATE RESPONSIBILITY Telephone Encounter - Corrine Vazquez MD - 01/25/2021 8:44 AM CST Let the patient know that she can come in sometime next week for her A1c. She is not due for her thyroid test till next year sometime. Also let her know that she can certainly try the oxybutynin and ifit has benefits with minimal side effects she can certainly continue to take that. GER CORPORATE RESPONSIBILITY Telephone Encounter - Margareth Sanchez RN - 01/24/2021 2:55 PM CST Patients last A1c 07/25/20, due now. Order pended. Patients last TSH was 03/08 should she have this done again 03/09? Please advise on recommendations for Oxybutin. GER CORPORATE RESPONSIBILITY Telephone Encounter - Luciana Albarado - 01/24/2021 2:50 PM CST Pt ca;;aed asking if it's time her for to come in to have her A1C and thyroid checked. Pt also wanted Dr. Vazquez to know a physician she saw at [facility] wants to start her on Oxybutynin ER, and she wants to know what he thinks of that. Please call Pt at [phone] to advise. GER CORPORATE RESPONSIBILITY documented in this encounter Plan of Treatment Not on filedocumented as of this encounter Goals Goal Patient Goal Associated Recent Patient-Stated? Author Type Problems Progress Routine Health General No change No Domitila, Management (02/05/2021 Abbie Murray, 11:19 AM MANAGER CORPORATE RESPONSIBILITY) RN Note: Formatting of this note is differe nt from the original. Routine Health Management Care Team Patient Care Team: Corrine Vazquez MD as PCP - General ([facility] Medicine) Yossi Potts, RN as Registered Nurse (Diabetes Education) Abbie Ramesh RN as Protection Specialist Future Scheduled Appointments No future appointments. Health Maintenance Health Maintenance Topic Date Due Urine Protein Screening 05/31/2020 Lipid Panel 09/05/2020 Glaucoma Screening 67+ Yr 12/25/2020 Ophthalmology Exam 12/25/2020 [facility] Annual Wellness 01/12/2021 Hemoglobin A1C 01/24/2021 Diabetic Foot Exam 03/16/2021 Colorectal Cancer Screening: Colonoscop y 05/21/2021 Fall Risk Performed 06/05/2021 Mammogram 12/03/2021 COVID-19 Vaccine Completed [facility] Pneumococcal Vaccine: <64 Completed [facility] Pneumococcal Vaccine: 65+ Years Com pleted HPV Vaccines Aged Out Notes: Due: Urine Protein screening Eye exam AWV A1C Lipid panel Diabetes Management General No change (02/05/2021 11:17 AM No Abbie Ramesh, RN MANAGER CORPORATE RESPONSIBILITY) Note: Formatting of this note is differe [...] track (02/05/2021 Abbie Monzon RN 11:14 AM MANAGER CORPORATE RESPONSIBILITY) Note: Formatting of this note is differe [...] Primary documented in this encounter Care Teams Proof Tester Relationship Specialty Start Date End Date Corrine Vazquez MD PCP - General Family Medicine 07/07/19 08/19/[address] [place] [address] documented as of this encounter
--- OUTSIDE RECORDS SUMMARY | 2021-10-24 10:39 | XMS_ITS | Encounter Summary ---
:1945 Author Organization [facility] Address [address] [place] [address] Care Team Providers Name Role Phone Corrine Vazquez MD Primary Care Provider Reason for Visit Reason Onset Date Comments Two prescriptions 03/06/2021 Encounter Details Date Type Department Care Team Description 03/06/2021 Telephone [place] Corrine Vazquez, Two prescriptions [address] [place], [place] [address] [phone] [place] [address] ([facility]) Social History Tobacco Use Types Packs/Day Years [...] needles all faxed to [facility]. [employer] TREATING [employer] PUMPING Telephone Encounter - Lana Knight LPN - 03/07/2021 3:34 PM CST Please fax to [facility] [employer] Telephone Encounter - Margareth Sanchez RN - 03/07/2021 3:32 PM CST ----- Message from Corrine Vazquez MD sent at 03/07/2021 3:08 PM SUPERVISOR TREATING AND PUMPING ----- You can fax the DME for her diabetic supplies to [facility] in [place]. Then call the patient let her know that she can turkey picker her diabetic supplies at [facility] in [place]. All of her other prescriptionshave gone to [facility]. ----- Message ----- From: Lana Knight LPN Sent: 03/07/2021 10:55 AM SUPERVISOR TREATING AND PUMPING To: Corrine Vazquez MD [employer] Telephone Encounter - Margareth Sanchez RN - 03/07/2021 2:47 PM CST Patient informed. RVISOR TREATING [employer] PUMPING Telephone Encounter - Corrine Vazquez MD - 03/07/2021 9:59 AM CST Let patient know that I have sent to [facility] for 2 new blood pressure medications that she can turkey picker from [facility]. Remind her again to come in about a month to have her blood pressure checkedand please do not forget to place the DME order for diabetic supplies to be sent to [facility] in [place]. [employer]ISOR TREATING [employer] PUMPING Telephone Encounter - Margareth Sanchez RN - 03/06/2021 2:52 PM CST Please advise on medication requests to [facility]. [employer] TREATING [employer] PUMPING Telephone Encounter - Luciana Albarado - 03/06/2021 2:12 PM CST Pt called to let Dr. Vazquez know she checked and yes - she would like you to go ahead and send thetwo prescriptions that were discussed at her appt to [facility]. Any questions please call Pt [phone] as necessary. [employer]ISOR TREATING [employer] PUMPING documented in this encounter Plan of Treatment Not on filedocumented as of this encounter Goals Goal Patient Goal Associated Recent Patient-Stated? Author Type Problems Progress Routine Health General No change Peter Monzon (02/05/2021 Abbie Murray, 11:19 AM SUPERVISOR TREATING AND PUMPING) RN Note: Formatting of this note is differe nt from the original. Routine Health Management Care Team Patient Care Team: Corrine Vazquez MD as PCP - General [facility]) Yossi Potts RN as Registered Nurse (Diabetes Education) Abbie Ramesh RN as Turning Machine Operator Helper Future Scheduled Appointments No future appointments. [...] Performed 06/05/2021 Mammogram 12/03/2021 COVID-19 Vaccine [place] [facility] Pneumococcal Vaccine: <64 Completed [facility] Pneumococcal Vaccine: 65+ Years Com pleted HPV Vaccines Aged Out Notes: Due: Urine Protein screening Eye exam AWV A1C Lipid panel Diabetes Management General No change (02/05/2021 11:17 AM Abbie Monzon, RN SUPERVISOR TREATING AND PUMPING) Note: Formatting of this note is differe [...] No Abbie Ramesh, RN 11:14 AM SUPERVISOR TREATING AND PUMPING) Note: Formatting of this note is differe [...] type documented in this encounter Care Teams Restorer Lace And Textiles Relationship Specialty Start Date End Date Corrine Vazquez MD PCP - General Family Medicine 07/07/19 08/19/21 [address] [place] [address] documented as of this encounter
--- OUTSIDE RECORDS SUMMARY | 2021-10-24 10:39 | XMS_ITS | Encounter Summary ---
:1945 Author Organization [facility] Address [address] [place] [address] Care Team Providers Name Role Phone Corrine Vazquez MD Primary Care Provider Reason for Visit Consultation (Routine) - Authorized Specialty Diagnoses / Procedures Referred By Contact Refer red To Contact Family Medicine Diagnoses Enrolled in chronic care management Essential hypertension Type 2 diabetes mellitus with other specified complication, with long-term current use of insulin (HCC) Mixed hyperlipidemia Corrine Vazquez MD Care Coordination [address] [facility] [address], [place] [phone] Referral ID Status Reason Start Expiration Visits Visits Date Date Requested Authorized [id number] Authorized Specialty 02/16/2021 03/18/2022 99 99 Services Required Encounter Details Date Type Department Care Team Description 05/09/2021 Patient Outreach Care Coordination Abbie Ramesh [facility] and [address] [place] [address] [place] [address] [facility] (Primary Dx) [phone] [place] [phone] Social History Tobacco Use Types Packs/Day Years [...] 12/23/2018 organizations such as advent groups, unions, [employer] or athletic groups, or school groups? How [...] Peter Ramesh (02/05/2021 Abbie Murray, 11:19 AM DIRECTOR INSTRUCTIONAL MATERIAL) RN Note: Formatting of this note is differe nt from the original. Routine Health Management Care Team Patient Care Team: Corrine Vazquez MD as PCP - [facility] Yossi Potts, RN as Registered Nurse (Diabetes Education) Abbie Ramesh RN as Hand Spring Repairer Helper Future Scheduled Appointments No future appointments. Health Maintenance Health Maintenance Topic Date Due Urine Protein Screening 05/31/2020 Lipid Panel 09/05/2020 Glaucoma Screening 67+ Yr 12/25/2020 Ophthalmology Exam 12/25/2020 [facility] Annual Wellness 01/12/2021 Hemoglobin A1C 01/24/2021 Diabetic Foot Exam 03/16/2021 Colorectal Cancer Screening: Colonoscop y 05/21/2021 Fall Risk Performed 06/05/2021 Mammogram 12/03/2021 COVID-19 Vaccine Completed [facility] Pneumococcal Vaccine: <64 Completed [facility] Pneumococcal Vaccine: 65+ Years Com pleted HPV Vaccines Aged Out Notes: Due: Urine Protein screening Eye exam AWV A1C Lipid panel Diabetes Management General No change (02/05/2021 11:17 AM No Abbie Ramesh, RN DIRECTOR INSTRUCTIONAL MATERIAL) Note: Formatting of this note is differe [...] (02/05/2021 No Abbie Ramesh, RN 11:14 AM DIRECTOR INSTRUCTIONAL MATERIAL) Note: Formatting of this note is differe [...] imary documented in this encounter Care Teams Pyrotechnist Relationship Specialty Start Date End Date Corrine Vazquez MD PCP - General Family Medicine 07/07/19 08/19/[address] [place] [address] documented as of this encounter
--- OUTSIDE RECORDS SUMMARY | 2021-10-24 10:39 | XMS_ITS | Encounter Summary ---
:1945 Author Organization [facility] Address [address] [place] [address] Care Team Providers Name Role Phone Corrine Vazquez MD Primary Care Provider Reason for Visit Consultation (Routine) - Closed Specialty Diagnoses / Procedures Referred By Contact Refer red To Contact Family Medicine Diagnoses Enrolled in chronic care management Essential hypertension Type 2 diabetes mellitus with other specified complication, with long-term current use of insulin (HCC) Mixed hyperlipidemia Corrine Vazquez MD Care Coordination [facility] [address] [place], [place] [phone] Referral ID Status Reason Start Date Expiration Date Visits V isits Requested Authorized [id number] Closed Specialty 02/21/2020 03/18/2021 99 99 Services Required Encounter Details Date Type Department Care Team Description 12/11/2020 Patient Outreach SE Care Coordination Abbie Ramesh Counseling and coordination of care (Primary Dx); [address] [place] [address] Terri RN Type 2 diabetes mellitus with other spec ified complication, with long-term current use of insulin (HCC); [place] [address] [address] [facility] Essential hypertension [phone] [place] [address] Social History Tobacco Use Types [...] 12/23/2018 organizations such as mormon groups, unions, fraGroupalia or athletic groups, or school groups? How [...] forward with EGD. Checked with [facility] in [place] and was told they have not received the paperwork yet. Will have CF maid housekeeper re-send. Follow-up plan: ?? Monthly or sooner if needed Items for Provider to address: ??? None Goals Today 11/02/20 07/20/20 06/22/20 05/24/20 General ??? Cardiovascular Management On track On track On track No change Cardiovascular Management Essential hypertension Chronic coronary artery disease Managed by (PCP; Cardiology; [facility]) Dr. Taylor MD (PCP)/Dr. [...] Management Care Team Patient Care Team: Corrine Vaqzuez MD as PCP - General (Family Medicine) Yossi Potts, RN as Registered Nurse (Diabetes Education) Abbie Ramesh RN as Kelly Machine Operator Future Scheduled Appointments No future [...] Domitila, Management (02/05/2021 Abbie Murray 11:19 AM BRICKLAYER) RN Note: Formatting of this note is differe nt from the original. Routine Health Management Care Team Patient Care Team: Corrine Vazquez MD as PCP - General ([facility] Medicine) Yossi Potts, RN as Registered Nurse (Diabetes Education) Abbie Ramesh RN as Kelly Machine Operator Future Scheduled Appointments No future appointments. Health Maintenance Health Maintenance Topic Date Due Urine Protein Screening 05/31/2020 Lipid Panel 09/05/2020 Glaucoma Screening 67+ Yr 12/25/2020 Ophthalmology Exam 12/25/2020 [facility] [place] 01/12/2021 Hemoglobin A1C 01/24/2021 Diabetic Foot Exam 03/16/2021 Colorectal Cancer Screening: Colonoscop y 05/21/2021 Fall Risk Performed 06/05/2021 Mammogram 12/03/2021 COVID-19 Vaccine Completed [facility] Pneumococcal Vaccine: <64 Completed [facility] Pneumococcal Vaccine: 65+ Years Com pleted HPV Vaccines Aged Out Notes: Due: Urine Protein screening Eye exam AWV A1C Lipid panel Diabetes Management General No change (02/05/2021 11:17 AM Abbie Monzon, RN BRICKLAYER) Note: Formatting of this note is differe [...] (02/05/2021 No Abbie Ramesh RN 11:14 AM BRICKLAYER) Note: Formatting of this note is differe nt from the original. Cardiovascular Management Essential hypertension Chronic coronary artery disease Managed by (PCP; Cardiology; [facility]) Dr. Ronak lozoya MD [...] hypertension documented in this encounter Care Teams Material Handler 2Nd Shift Relationship Specialty Start Date End Date Corrine Vazquez MD PCP - General Family Medicine 07/07/19 08/19/[address] [place] [address] documented as of this encounter
--- OUTSIDE RECORDS SUMMARY | 2021-10-24 10:39 | XMS_ITS | Encounter Summary ---
:1945 Author Organization [facility] Address [address] [place] [address] Care Team Providers Name Role Phone Corrine Vazuqez MD Primary Care Provider Encounter Details Date Type Department Care Team Description 02/14/2021 [place] Type 2 diabetes mellitus wit hout complication, with long-term current use of insulin (HCC); [address] Mixed hyperlipidemia; [place], [place] [address] Screening for deficiency ane luis; [phone] Type 2 diabetes mellitus with other specified [...] Domitila, Management (02/05/2021 Abbie Murray, 11:19 AM DISTRIBUTION A CLASS LINEMAN) RN Note: Formatting of this note is differe nt from the original. Routine Health Management Care Team Patient Care Team: Corrine Vazquez MD as PCP - General ([facility] Medicine) Yossi Potts, RN as Registered Nurse (Diabetes Education) Abbie Ramesh, RN as Thread Roller Future Scheduled Appointments No future appointments. Health Maintenance Health Maintenance Topic Date Due Urine Protein Screening 05/31/2020 Lipid Panel 09/05/2020 Glaucoma Screening 67+ Yr 12/25/2020 Ophthalmology Exam 12/25/2020 [facility] Annual Wellness 01/12/2021 Hemoglobin A1C 01/24/2021 Diabetic Foot Exam 03/16/2021 Colorectal Cancer Screening: Colonoscop y 05/21/2021 Fall Risk Performed 06/05/2021 Mammogram 12/03/2021 COVID-19 Vaccine Completed [facility] Pneumococcal Vaccine: <64 Completed [facility] Pneumococcal Vaccine: 65+ Years Com pleted HPV Vaccines Aged Out Notes: Due: Urine Protein screening Eye exam AWV A1C Lipid panel Diabetes Management General No change (02/05/2021 11:17 AM No Abbie Ramesh, RN DISTRIBUTION A CLASS LINEMAN) Note: Formatting of this note is differe [...] track (02/05/2021 Abbie Monzon RN 11:14 AM DISTRIBUTION A CLASS LINEMAN) Note: Formatting of this note is differe [...] Diagnosis Comme nts GLOMERULAR Routine 02/14/2021 9:30 AM Type 2 diabetes Result s for this FILTRATION RATE DISTRIBUTION A CLASS LINEMAN mellitus without procedur e are in complication, with the resul ts long-term current use sectio n. of insulin ([facility]) CBC BRANCH OFFICE Routine 02/14/2021 9:30 AM Resu lts for this W/DIFF DISTRIBUTION A CLASS LINEMAN procedure are i n the results section. HEMOGLOBIN A1C Routine 02/14/2021 9:30 AM Type 2 diabetes Resu lts for this DISTRIBUTION A CLASS LINEMAN mellitus without procedure a re in complication, with the resul ts long-term current use sectio n. of insulin ([facility]) LIPID PANEL Routine 02/14/2021 9:30 AM Type 2 diabetes Result s for this DISTRIBUTION A CLASS LINEMAN mellitus without procedure a re in complication, with the resul ts long-term current use sectio n. of insulin ([facility]) Mixed hyperlipidemia BASIC METABOLIC Routine 02/14/2021 9:30 AM Type 2 diabetes Res ults for this PANEL DISTRIBUTION A CLASS LINEMAN mellitus without procedure a re in complication, with the resul ts long-term current use sectio n. of insulin (HCC) MICROALBUMIN/CREATI Routine 02/14/2021 9:10 AM Type 2 diabetes Results for this NINE RATIO DISTRIBUTION A CLASS LINEMAN mellitus with other procedur e are in specified the results complication, with section. long-term current use of insulin (HCC) documented in this encounter Results (ABNORMAL) Glomerular filtration rate (GFR) (02/14/2021 9:30 AM DISTRIBUTION A CLASS LINEMAN) P athologist Signature GFR 34 (A) 02/14/2021 [facility] 1:26 PM [facility] 41 (A) 02/14/2021 [facility] Finnish GFR 1:26 PM [facility] Comment: GFR calculated from serum creatinine v alue Chronic Kidney Disease less than 60 mL/m in/1.73 m2 Kidney Failure less than 15 mL/min/1.73 m2 Note: effective 07/01/06 IDMS-Traceable MDRD Study Equation used. Specimen Anatomical Collection Method Collection Time Receive d Time (Source) Location / / Volume Laterality 02/14/2021 9:30 AM 9:30 DISTRIBUTION A CLASS LINEMAN AM DISTRIBUTION A CLASS LINEMAN D. Lincoln Vazquez MD LAB BLOOD ORDERABLES Performing Organization Address City/State/ZIP Code Phon e Number [facility] [address] [place] [phone] (ABNORMAL) CBC Branch Off w/Diff (02/14/2021 9:30 AM DISTRIBUTION A CLASS LINEMAN) Patholo gist Method Time Signature WBC 7.7 3.5 - 10.5 02/14/2021 [facility] [place] K/uL 11:26 AM [facility] [place] RBC 3.71 (L) 3.90 - 02/14/2021 [facility] [place] 5.00 M/uL 11:26 AM [place] [place] Hemoglobin 10.9 (L) 12.0 - 02/14/2021 [facility] [place] 15.5 g/dL 11:26 AM [facility] [place] Hematocrit 33.2 (L) 35.0 - 02/14/2021 [facility] [place] 44.0 % 11:26 AM [facility] [place] Platelets 205 150 - 450 02/14/2021 [facility] [place] K/uL 11:26 AM DISTRI[facility] A [place] MCV 89.5 81.6 - 02/14/2021 [facility] [place] 98.3 fL 11:26 AM DISTRI[facility] A [facility] [place] MCH 29.4 26.0 - 02/14/2021 [facility] [place] 32.0 pg 11:26 AM DISTRI[employer] A [employer] [place] MCHC 32.8 32.0 - 02/14/2021 [facility] [place] 36.0 g/dL 11:26 AM DIST[facility] A [facility] [place] RDW 13.3 11.9 - 02/14/2021 [facility] [place] 15.5 % 11:26 AM [facility] [place] Lymphocytes % 14.9 % 02/14/2021 [facility] [place] 11:26 AM [facility] [employer] [place] Mid-size Cells 10.5 % 02/14/2021 [facility] [place] 11:26 AM [facility] [place] Granulocytes/Jean Claude 74.6 % 02/14/2021 [facility] [place] trophils 11:26 AM DIST[facility] [employer] [place] Lymphocytes 1.1 0.9 - 2.9 02/14/2021 [facility] [place] Absolute K/uL 11:26 AM DIST[facility] [employer] [place] MIDS Absolute 0.8 0.4 - 1.5 02/14/2021 [facility] [place] K/uL 11:26 AM [facility] [employer] [place] Granulocytes/Jean Claude 5.8 1.7 - 7.0 02/14/2021 [facility] [place] trophils K/uL 11:26 AM DISTRIBUTION A CLASS [place] Absolute Specimen Anatomical Collection Method Collection Time Receive d Time (Source) Location / / Volume Laterality 02/14/2021 9:30 AM 9:35 DISTRIBUTION A CLASS LINEMAN AM DISTRIBUTION A CLASS LINEMAN D. Lincoln Vazquez MD LAB BLOOD ORDERABLES Performing Organization Address City/State/ZIP Code Phon e Number [facility] [place] [address] [place] [address] (ABNORMAL) Basic metabolic panel (02/14/2021 9:30 AM DISTRIBUTION A CLASS LINEMAN) Analysis Performed At Patho logist Time Signature Sodium 137 135 - 145 02/14/2021 [facility] mEq/L 1:[address] [facility] Potassium 3.8 3.5 - 5.1 02/14/2021 [facility] mEq/L 1:[address] [facility] Chloride 103 98 - 107 02/14/2021 [facility] mEq/L 1:[address] [facility] CO2 25 22 - 29 02/14/2021 [facility] mmol/L 1:[address] [facility] Creatinine 1.5 (H) 0.4 - 1.2 02/14/2021 [facility] mg/dL 1:26 PM [facility] BUN 28 (H) 5 - 25 02/14/2021 [facility] mg/dL 1:26 PM [facility] Glucose 169 (H) 70 - 100 02/14/2021 [facility] mg/dL 1:26 PM [facility] Calcium, 9.3 8.4 - 10.2 02/14/2021 [facility] Total,S mg/dL 1:26 PM [facility] Specimen Anatomical Collection Method Collection Time Receive d Time (Source) Location / / Volume Laterality Blood 02/14/2021 9:30 AM DISTRIBUTION A CLASS LINEMAN 12:48 PM DISTRIBUTION A CLASS LINEMAN Corrine Vazquez MD LAB BLOOD ORDERABLES Performing Organization Address City/[facility] e Number [facility] [address] [place] [phone] (ABNORMAL) Hemoglobin A1c (02/14/2021 9:30 AM DISTRIBUTION A CLASS LINEMAN) Analysis Performed At Patho logist Time Signature Hemoglobin A1C 8.6 (H) 4.0 - 5.6 02/14/2021 [facility] % A1C 6:49 PM [facility] Comment: Reference Range 4.0-5.6% is [...] / Volume Laterality Blood (Blood, 02/14/2021 9:30 AM 02/15/20 21 6:20 Venous) DISTRIBUTION A CLASS LINEMAN PM DISTRIBUTION A CLASS LINEMAN Corrine Vazquez MD LAB BLOOD ORDERABLES Performing Organization Address [facility] e Number [facility] [address] [place] [address] (ABNORMAL) Lipid panel (02/14/2021 9:30 AM DISTRIBUTION A CLASS LINEMAN) P athologist Signature Cholesterol 237 (H) 0 - 199 02/14/2021 [facility] mg/dL 1:26 PM [facility] Comment: Recommended by National Cholesterol Education Program (ATP III) -------- Cholesterol Ranges -------- <200 ?Desirable 200-239 ? Borderline high >=240 ? High Triglycerides 285 (H) 0 - 149 mg/dL 02/14/2021 1:26 PM [facility] Comment: -------- TRIG Ranges -------- <150 ?Normal 150-199 ? Borderline high 200-499 ? High >=500 ? Very high HDL 44 40 - 250 mg/dL 02/14/2021 1:26 PM [facility] Comment: -------- HDL Ranges -------- <40 ?Low 40-59 ?Normal >=60 ? Optimal LDL Calculated 136 (H) 0 - 99 mg/dL 02/14/2021 1:26 PM [facility] Comment: -------- LDL Ranges -------- <100 ? Optimal 100-129 ?Near optimal/above op timal 130-159 ?Borderline high 160-189 ?High >=190 ?Very high Fasting? Yes 02/14/2021 9:35 AM [facility] Specimen Anatomical Collection Method Collection Time Receive d Time (Source) Location / / Volume Laterality Blood 02/14/2021 9:30 AM DISTRIBUTION A CLASS LINEMAN 12:48 PM DISTRIBUTION A CLASS LINEMAN D. Lincoln Vazquez MD LAB BLOOD ORDERABLES Performing Organization Address City/State/ZIP Code Phon e Number [facility] [address] [place] [address] (ABNORMAL) Microalbumin/Creatinine Ratio (02/14/2021 9:10 AM DISTRIBUTION A CLASS LINEMAN) [facility] Method Time Signature Microalbumin,m 104.3 (H) 0.0 - 16.6 02/14/2021 [place] g/day mg/L 1:37 PM [facility] Comment: . Creatinine, Urine 257 mg/dL 02/14/2021 1:37 PM DISTRIBUTION A CLASS LINEMAN [facility] Comment: No established reference range. Microalb/Creat Ratio 41 (H) 0 - 24 mg/g 02/14/2021 1:37 P [facility] Specimen Anatomical Collection Method Collection Time Receive d Time (Source) Location / / Volume Laterality Urine (Urine, 02/14/2021 9:10 AM 02/15/20 21 Clean Catch) DISTRIBUTION A CLASS LINEMAN 12:48 PM DISTRIBUTION A CLASS LINEMAN D. Lincoln Vazquez MD LAB URINE ORDERABLES Performing Organization Address City/State/ZIP Code Phon e Number [facility] [address] [place] [phone] documented in this encounter Visit Diagnoses Diagnosis Type 2 diabetes mellitus without complic ation, with long-term current use of insulin (HCC) Mixed hyperlipidemia Screening for deficiency anemia Screening for other and unspecified defi ciency anemia Type 2 diabetes mellitus with other spec ified complication, with long-term current use of insulin (HCC) documented in this encounter Care Teams Product Architect Relationship Specialty Start Date End Date Corrine Vazquez MD PCP - General Family Medicine 07/07/19 08/19/[address] [place] [address] documented as of this encounter
--- OUTSIDE RECORDS SUMMARY | 2021-10-24 10:39 | XMS_ITS | Encounter Summary ---
:1945 Author Organization [facility] Address [address] [place] [address] Care Team Providers Name Role Phone Corrine Vazquez MD Primary Care Provider Reason for Visit Consultation (Routine) - Authorized Specialty Diagnoses / Procedures Referred By Contact Refer red To Contact Family Medicine Diagnoses Enrolled in chronic care management Essential hypertension Type 2 diabetes mellitus with other specified complication, with long-term current use of insulin (HCC) Mixed hyperlipidemia Corrine Vazquez MD Care Coordination [address] [place] [phone] Referral ID Status Reason Start Expiration Visits Visits Date Date Requested Authorized [id number] Authorized Specialty 02/16/2021 03/18/2022 99 99 Services Required Encounter Details Date Type Department Care Team Description 04/10/2021 Patient Outreach SE Care Coordination Abbie Ramesh, [address] [place] [address] [place] [address] [place] [phone] Social History Tobacco Use Types Packs/Day Years [...] or relatives? How often do you attend pentecostalism or More than 4 times per year 12/23/2018 hoahaoism services? Do you belong to any clubs or No 12/23/2018 organizations such as pentecostalism groups, unions, fraternal or athletic groups, or [...] encounter Progress Notes Abbie Ramesh RN - 04/10/2021 10:20 AM CST Care Plan - Care Coordination Contact Date: 04/10/2021 12:58 PM Called for monthly follow up and progress; Left message to call back. This is first attempt to call this month. OR IT BUSINESS ANALYST documented in this encounter Plan of Treatment Not on filedocumented as of this encounter Goals Goal Patient Goal Associated Recent Patient-Stated? Author Type Problems Progress Routine Health General No change Peter Monzon (02/05/2021 Abbie Murray, 11:19 AM SENIOR IT BUSINESS ANALYST) RN Note: Formatting of this note is differe nt from the original. Routine Health Management Care Team Patient Care Team: Corrine Vazquez MD as PCP - General ([facility]) Yossi Potts, RN as Registered Nurse (Diabetes Education) Abbie Ramesh RN as Ornamental Iron Erector Future Scheduled Appointments No future appointments. Health Maintenance Health Maintenance Topic Date Due Urine Protein Screening 05/31/2020 Lipid Panel 09/05/2020 Glaucoma Screening 67+ Yr 12/25/2020 Ophthalmology Exam 12/25/2020 [facility] Annual Wellness 01/12/2021 Hemoglobin A1C 01/24/2021 Diabetic Foot Exam 03/16/2021 Colorectal Cancer Screening: Colonoscop y 05/21/2021 Fall Risk Performed 06/05/2021 Mammogram 12/03/2021 COVID-19 Vaccine Completed [facility] Pneumococcal Vaccine: <64 Completed [facility] Pneumococcal Vaccine: 65+ Years Com pleted HPV Vaccines Aged Out Notes: Due: Urine Protein screening Eye exam AWV A1C Lipid panel Diabetes Management General No change (02/05/2021 11:17 AM No Abbie Ramesh, RN SENIOR IT BUSINESS ANALYST) Note: Formatting of this note is differe [...] No Abbie Ramesh, RN 11:14 AM SENIOR IT BUSINESS ANALYST) Note: Formatting of this note is differe nt from the original. Cardiovascular Management Essential hypertension Chronic coronary artery disease Managed by (PCP; Cardiology; [facility]) Dr. Ronak lozoya MD (PCP)/Dr. [...] on filedocumented in this encounter Care Teams Pet Care Technician Relationship Specialty Start Date End Date Corrine Vazquez MD PCP - General Family Medicine 07/07/19 08/19/[address] [place] [address] documented as of this encounter
--- OUTSIDE RECORDS SUMMARY | 2021-10-24 10:39 | XMS_ITS | Encounter Summary ---
:1945 Author Organization [facility] Address [address] [place] [address] Care Team Providers Name Role Phone Corrine Vazquez MD Primary Care Provider Reason for Visit Reason Onset Date Comments rx 11/09/2020 Encounter Details Date Type Department Care Team Description 11/09/2020 Telephone [place] Corrine Vazquez MD rx [address] [place], [place] [address] [place], [place] [phone] (Wo rk) Social History Tobacco Use Types [...] questions about RX. Please call Kamille at [phone]. documented in this encounter Plan of Treatment Not on filedocumented as of this encounter Goals Goal Patient Goal Associated Recent Patient-Stated? Author Type Problems Progress Routine Health General No change No Domitila, Peter (02/05/2021 Abbie Murray, 11:19 AM CERAMICS INSTRUCTOR) RN Note: Formatting of this note is differe nt from the original. Routine Health Management Care Team Patient Care Team: Corrine Vazquez MD as PCP - General ([facility] Medicine) Yossi Potts RN as Registered Nurse (Diabetes Education) Abbie Ramesh, RN as Rehabilitation Counselor Future Scheduled Appointments No future appointments. Health Maintenance Health Maintenance Topic Date Due Urine Protein Screening 05/31/2020 Lipid Panel 09/05/2020 Glaucoma Screening 67+ Yr 12/25/2020 Ophthalmology Exam 12/25/2020 [facility] [place] 01/12/2021 Hemoglobin A1C 01/24/2021 Diabetic Foot Exam 03/16/2021 Colorectal Cancer Screening: Colonoscop y 05/21/2021 Fall Risk Performed 06/05/2021 Mammogram 12/03/2021 COVID-19 Vaccine Completed [facility] Pneumococcal Vaccine: <64 Completed [facility] Pneumococcal Vaccine: 65+ Years Com pleted HPV Vaccines Aged Out Notes: Due: Urine Protein screening Eye exam AWV A1C Lipid panel Diabetes Management General No change (02/05/2021 11:17 AM No Abbie Ramesh, RN CERAMICS INSTRUCTOR) Note: Formatting of this note is [...] (02/05/2021 No Abbie Ramesh RN 11:14 AM CERAMICS INSTRUCTOR) Note: Formatting of this note is [...] on filedocumented in this encounter Care Teams Gear Cutting Machine Set Up Operator Relationship Specialty Start Date End Date Corrine Vazquez MD PCP - General Family Medicine 07/07/19 08/19/21 [address] [place] [address] documented as of this encounter
--- OUTSIDE RECORDS SUMMARY | 2021-10-24 10:39 | XMS_ITS | Encounter Summary ---
:[address] [facility] Address [address] [place] [address] Care Team Providers Name Role Phone Corrine Vazquez MD Primary Care Provider Encounter Details Date Type Department Care Team Description 11/22/2020 Orders Only [place] Corrine Vazquez MD [address] [facility] [address] [place], [place] [address] [place], [place] [phone] (Wo rk) Social History Tobacco Use Types [...] Domitila, Management (02/05/2021 Abbie Murray, 11:19 AM COPY MESSENGER) RN Note: Formatting of this note is differe nt from the original. Routine Health Management Care Team Patient Care Team: Corrine Vazquez MD as PCP - General ([facility] Medicine) Yossi Potts, RN as Registered Nurse (Diabetes Education) Abbie Ramesh RN as Inspector Insulation Future Scheduled Appointments No future appointments. Health Maintenance Health Maintenance Topic Date Due Urine Protein Screening 05/31/2020 Lipid Panel 09/05/2020 Glaucoma Screening 67+ Yr 12/25/2020 Ophthalmology Exam 12/25/2020 [facility] Annual Wellness 01/12/2021 Hemoglobin A1C 01/24/2021 Diabetic Foot Exam 03/16/2021 Colorectal Cancer Screening: Colonoscop y 05/21/2021 Fall Risk Performed 06/05/2021 Mammogram 12/03/2021 COVID-19 Vaccine Completed [facility] Pneumococcal Vaccine: <64 Completed [facility] Pneumococcal Vaccine: 65+ Years Com pleted HPV Vaccines Aged Out Notes: Due: Urine Protein screening Eye exam AWV A1C Lipid panel Diabetes Management General No change (02/05/2021 11:17 AM No Abbie Ramesh, RN COPY MESSENGER) Note: Formatting of this note is differe [...] track (02/05/2021 Abbie Monzon RN 11:14 AM COPY MESSENGER) Note: Formatting of this note is differe nt from the original. Cardiovascular Management Essential hypertension Chronic coronary artery disease Managed by (PCP; Cardiology; [facility]) Dr. Ronak lozoya MD (PCP)/Dr. [...] on filedocumented in this encounter Care Teams Crop [place] Hand Relationship Specialty Start Date End Date Corrine Vazquez MD PCP - General Family Medicine 07/07/19 08/19/[address] [place] [address] documented as of this encounter
--- OUTSIDE RECORDS SUMMARY | 2021-10-24 10:39 | XMS_ITS | Encounter Summary ---
:1945 Author Organization [facility] Address [address] [place] [address] Care Team Providers Name Role Phone Corrine Vazquez MD Primary Care Provider Encounter Details Date Type Department Care Team Description 02/05/2021 Orders Only SE Care Coordination Corrine Vazquez Type 2 diabetes [address] [facility] MD [place] [address] specified complication, [place] with long-term current [place], [place] use of insu [place] ([facility]) [phone] (Primary Dx) Social History Tobacco Use Types [...] Peter Monzon (02/05/2021 Abbie Murray, 11:19 AM TECHNICAL PROJECT MANAGER) RN Note: Formatting of this note is differe nt from the original. Routine Health Management Care Team Patient Care Team: Corrine Vazquez MD as PCP - General ([facility] Medicine) Yossi Potts RN as Registered Nurse (Diabetes Education) Abbie Ramesh RN as Health Science Specialist Future Scheduled Appointments No future appointments. Health Maintenance Health Maintenance Topic Date Due Urine Protein Screening 05/31/2020 Lipid Panel 09/05/2020 Glaucoma Screening 67+ Yr 12/25/2020 Ophthalmology Exam 12/25/2020 [facility] Annual Wellness 01/12/2021 Hemoglobin A1C 01/24/2021 Diabetic Foot Exam 03/16/2021 Colorectal Cancer Screening: Colonoscop y 05/21/2021 Fall Risk Performed 06/05/2021 Mammogram 12/03/2021 COVID-19 Vaccine Completed [facility] Pneumococcal Vaccine: <64 Completed [facility] Pneumococcal Vaccine: 65+ Years Com pleted HPV Vaccines Aged Out Notes: Due: Urine Protein screening Eye exam AWV A1C Lipid panel Diabetes Management General No change (02/05/2021 11:17 AM No Abbie Ramesh, RN TECHNICAL PROJECT MANAGER) Note: Formatting of this note [...] (02/05/2021 No Abbie Ramesh RN 11:14 AM TECHNICAL PROJECT MANAGER) Note: Formatting of this note [...] Results (ABNORMAL) Microalbumin/Creatinine Ratio (02/14/2021 9:10 AM TECHNICAL PROJECT MANAGER) [facility] Method Time Signature Microalbumin,m 104.3 (H) 0.0 - 16.6 02/14/2021 [place] g/day mg/L 1:37 PM [facility] Comment: . Creatinine, Urine 257 mg/dL 02/14/2021 1:37 PM [facility] Comment: No established reference range. Microalb/Creat Ratio 41 (H) 0 - 24 mg/g 02/14/2021 1:37 P M [facility] Specimen Anatomical Collection Method Collection Time Receive d Time (Source) Location / / Volume Laterality Urine (Urine, 02/14/2021 9:10 AM 02/15/20 21 [place]) TECHNICAL PROJECT MANAGER 12:48 PM TECHNICAL PROJECT MANAGER D. [place] Vazquez MD LAB URINE ORDERABLES Performing Organization Address City/State/ZIP Code Phon e Number [facility] [address] [place] [address] documented in this encounter Visit Diagnoses Diagnosis Type 2 diabetes mellitus with other spec ified complication, with long-term current use of insulin (HCC) - Primary documented in this encounter Care Teams Jewelry Polisher Relationship Specialty Start Date End Date Corrine Vazquez MD PCP - General Family Medicine 07/07/19 08/19/21 [address] [place] [address] documented as of this encounter
--- OUTSIDE RECORDS SUMMARY | 2021-10-24 10:39 | XMS_ITS | Encounter Summary ---
:1945 Author Organization [facility] Address [address] [place] [address] Care Team Providers Name Role Phone Corrine Vazquez MD Primary Care Provider Reason for Visit Reason Onset Date Comments fasting labs 02/13/2021 Encounter Details Date Type Department Care Team Description 02/13/2021 Telephone [place] Corrine Vazquez MD fasting labs [address] [place], [place] [address] [place], [place] [phone] (Wo rk) Social History Tobacco Use Types [...] - 02/13/2021 12:31 PM CST Orders placed STACKER OPERATOR Telephone Encounter - Hali Cormier MA - 02/13/2021 11:16 AM CST Patient came in for labs but was not fasting. Patient will be coming in tomorrow morning to have this drawn. Please replace orders for LIPID and Ha1C. STACKER OPERATOR documented in this encounter Plan of Treatment Not on filedocumented as of this encounter Goals Goal Patient Goal Associated Recent Patient-Stated? Author Type Problems Progress Routine Health General No change No Domitila, Peter (02/05/2021 Abbie Murray, 11:19 AM LOG STACKER OPERATOR) RN Note: Formatting of this note is differe nt from the original. Routine Health Management Care Team Patient Care Team: Corrine Vazquez MD as PCP - General ([facility]) Yossi Potts, RN as Registered Nurse (Diabetes Education) Abbie Ramesh, ERA as Environmental Manager Future Scheduled Appointments No future appointments. [...] [facility] [place] Pneumococcal Vaccine: <64 Completed [facility] Pneumococcal Vaccine: 65+ Years Com pleted HPV Vaccines Aged Out Notes: Due: Urine Protein screening Eye exam AWV A1C Lipid panel Diabetes Management General No change (02/05/2021 11:17 AM No Abbie Ramesh, RN LOG STACKER OPERATOR) Note: Formatting of this note is [...] (02/05/2021 No Abbie Ramesh RN 11:14 AM LOG STACKER OPERATOR) Note: Formatting of this note is [...] Results (ABNORMAL) Lipid panel (02/14/2021 9:30 AM LOG STACKER OPERATOR) P athologist Signature Cholesterol 237 (H) 0 - 199 02/14/2021 [facility] mg/dL 1:26 PM [facility] Comment: Recommended by National Cholesterol Education Program (ATP III) -------- Cholesterol Ranges -------- <200 ?Desirable 200-239 ? Borderline high >=240 ? High Triglycerides 285 (H) 0 - 149 mg/dL 02/14/2021 1:26 PM [facility] Comment: -------- TRIG Ranges -------- <150 ?Normal 150-199 ? Borderline high 200-499 ? High >=500 ? Very high HDL 44 40 - 250 mg/dL 02/14/2021 1:26 PM [facility] Comment: -------- HDL Ranges -------- <40 ?Low 40-59 ?Normal >=60 ? Optimal LDL Calculated 136 (H) 0 - 99 mg/dL 02/14/2021 1:26 PM [facility] Comment: -------- LDL Ranges -------- <100 ? Optimal 100-129 ?Near optimal/above op timal 130-159 ?Borderline high 160-189 ?High >=190 ?Very high Fasting? Yes 02/14/2021 9:35 AM [facility] Specimen Anatomical Collection Method Collection Time Receive d Time (Source) Location / / Volume Laterality Blood 02/14/2021 9:30 AM LOG STACKER OPERATOR 12:48 PM LOG STACKER OPERATOR D. [place] Vazquez MD LAB BLOOD ORDERABLES Performing Organization Address City/State/ZIP Code Phon e Number [facility] [address] [place] [address] (ABNORMAL) Hemoglobin A1c (02/14/2021 9:30 AM LOG STACKER OPERATOR) Analysis Performed At [facility] Signature Hemoglobin A1C 8.6 (H) 4.0 - 5.6 02/14/2021 [facility] % A1C 6:49 PM [facility] Comment: Reference Range 4.0-5.6% is [...] 02/14/2021 9:30 AM 02/15/20 21 6:20 Venous) LOG STACKER OPERATOR PM LOG STACKER OPERATOR D. [place] Vazquez MD LAB BLOOD ORDERABLES Performing Organization Address City/State/ZIP Code Phon e Number [facility] [address] [place] [phone] (ABNORMAL) Basic metabolic panel (02/14/2021 9:30 AM [facility]) Analysis Performed At [facility] Signature Sodium 137 135 - 145 02/14/2021 [facility] mEq/L 1:26 PM [facility] Potassium 3.8 3.5 - 5.1 02/14/2021 [facility] mEq/L 1:26 PM [facility] Chloride 103 98 - 107 02/14/2021 [facility] mEq/L 1:26 PM [facility] CO2 25 22 - 29 02/14/2021 [facility] mmol/L 1:26 PM [facility] Creatinine 1.5 (H) 0.4 - 1.2 02/14/2021 [facility] mg/dL 1:26 PM [facility] BUN 28 (H) 5 - 25 02/14/2021 [facility] mg/dL 1:26 PM [facility] Glucose 169 (H) 70 - 100 02/14/2021 [facility] mg/dL 1:26 PM [facility] Calcium, 9.3 8.4 - 10.2 02/14/2021 [facility] Total,S mg/dL 1:26 PM LOG STACKER OPERATOR [facility] Specimen Anatomical Collection Method Collection Time Receive d Time (Source) Location / / Volume Laterality Blood 02/14/2021 9:30 AM LOG STACKER OPERATOR 12:48 PM LOG STACKER OPERATOR Corrine Vazquez MD LAB BLOOD ORDERABLES Performing Organization Address City/State/ZIP Code Phon e Number [facility] [address] [place] [address] documented in this encounter Visit Diagnoses Diagnosis Screening for deficiency anemia - Primar y Screening for other and unspecified defi ciency anemia Type 2 diabetes mellitus without complic ation, with long-term current use of insulin (HCC) Mixed hyperlipidemia documented in this encounter Care Teams Cold Mill Operator Relationship Specialty Start Date End Date Corrine Vazquez MD PCP - General Family Medicine 07/07/19 08/19/[address] [place] [address] documented as of this encounter
--- OUTSIDE RECORDS SUMMARY | 2021-10-24 10:39 | XMS_ITS | Encounter Summary ---
:1945 Author Organization [facility] Address [address] [place] [address] Care Team Providers Name Role Phone Corrine Vazquez MD Primary Care Provider Reason for Visit Reason Onset Date Comments med refill 12/05/2020 Encounter Details Date Type Department Care Team Description 12/05/2020 Telephone [place] Corrine Vazquez MD med refill [address] [place], [place] [address] [place], [place] [phone] (Wo rk) Social History Tobacco Use Types [...] encounter Miscellaneous Notes Telephone Encounter - D. [place] Molenaar, MD - 12/05/2020 12:26 PM CDT The patient's Rx request were filled at [facility]. Telephone Encounter - Sherice Laura - 12/05/2020 11:01 AM CDT Patient needs a refill on her thyroid med and lantus pens. Send to [facility]. documented in this encounter Plan of Treatment Not on filedocumented as of this encounter Goals Goal Patient Goal Associated Recent Patient-Stated? Author Type Problems Progress Routine Health General No change No Domitila Management (02/05/2021 Abbie Murray, 11:19 AM COUNTY EXTENSION AGENT) RN Note: Formatting of this note is differe nt from the original. Routine Health Management Care Team Patient Care Team: Corrine Vazquez MD as PCP - General ([facility] Medicine) Yossi Potts, RN as Registered Nurse (Diabetes Education) Abbie Ramesh, RN as Fish Rod Maker Future Scheduled Appointments No future appointments. Health Maintenance Health Maintenance Topic Date Due Urine Protein Screening 05/31/2020 Lipid Panel 09/05/2020 Glaucoma Screening 67+ Yr 12/25/2020 Ophthalmology Exam 12/25/2020 [facility] Annual Wellness 01/12/2021 Hemoglobin A1C 01/24/2021 Diabetic Foot Exam 03/16/2021 Colorectal Cancer Screening: Colonoscop y 05/21/2021 Fall Risk Performed 06/05/2021 Mammogram 12/03/2021 COVID-19 Vaccine Completed [facility] Pneumococcal Vaccine: <64 Completed [facility] Pneumococcal Vaccine: 65+ Years Com pleted HPV Vaccines Aged Out Notes: Due: Urine Protein screening Eye exam AWV A1C Lipid panel Diabetes Management General No change (02/05/2021 11:17 AM No Abbie Ramesh, RN COUNTY EXTENSION AGENT) Note: Formatting of this note is [...] (02/05/2021 No Abbie Ramesh RN 11:14 AM COUNTY EXTENSION AGENT) Note: Formatting of this note is [...] (HCC) documented in this encounter Care Teams Ethylbenzene Converter Helper Relationship Specialty Start Date End Date Corrine Vazquez MD PCP - General Family Medicine 07/07/19 08/19/[address] [place] [address] documented as of this encounter
--- OUTSIDE RECORDS SUMMARY | 2021-10-24 10:39 | XMS_ITS | Encounter Summary ---
:1945 Author Organization [facility] Address [address] [place] [address] Care Team Providers Name Role Phone Corrine Vazquez MD Primary Care Provider Encounter Details Date Type Department Care Team Description 11/09/2020 [facility] [address] [place], [place] [address] Social History Tobacco Use [...] Peter Ramesh (02/05/2021 Abbie Murray, 11:19 AM PASTING MACHINE OFFBEARER) RN Note: Formatting of this note is differe nt from the original. Routine Health Management Care Team Patient Care Team: Corrine Vazquez MD as PCP - General ([facility] Medicine) Yossi Potts, RN as Registered Nurse (Diabetes Education) Abbie Ramesh RN as Art Manager Future Scheduled Appointments No future appointments. Health Maintenance Health Maintenance Topic Date Due Urine Protein Screening 05/31/2020 Lipid Panel 09/05/2020 Glaucoma Screening 67+ Yr 12/25/2020 Ophthalmology Exam 12/25/2020 [facility] Annual Wellness 01/12/2021 Hemoglobin A1C 01/24/2021 Diabetic Foot Exam 03/16/2021 Colorectal Cancer Screening: Colonoscop y 05/21/2021 Fall Risk Performed 06/05/2021 Mammogram 12/03/2021 COVID-19 Vaccine [place] [facility] Pneumococcal Vaccine: <64 Com[place] [facility] Pneumococcal Vaccine: 65+ Years Com pleted HPV Vaccines Aged Out Notes: Due: Urine Protein screening Eye exam AWV A1C Lipid panel Diabetes Management General No change (02/05/2021 11:17 AM No Abbie Ramesh, RN PASTING MACHINE OFFBEARER) Note: Formatting of this note is differe [...] (02/05/2021 No Abbie Ramesh RN 11:14 AM PASTING MACHINE OFFBEARER) Note: Formatting of this note is differe [...] on filedocumented in this encounter Care Teams Transmission Specialist Relationship Specialty Start Date End Date Corrine Vazquez MD PCP - General Family Medicine 07/07/19 08/19/[address] [place] [address] documented as of this encounter
--- OUTSIDE RECORDS SUMMARY | 2021-10-24 10:39 | XMS_ITS | Encounter Summary ---
:1945 Author Organization [facility] Address [address] [place] [address] Care Team Providers Name Role Phone Corrine Vazquez MD Primary Care Provider Encounter Details Date Type Department Care Team Description 02/13/2021 Lab [place] Type 2 diabetes mellitus wit h other specified complication, with long-term current use of insulin (HCC); [address] Type 2 diabetes mellitus wit hout complication, with long-term current use of insulin ([facility]) [place], [place] [address] Social History Tobacco Use [...] Domitila, Management (02/05/2021 Abbie Murray, 11:19 AM RECORDS ASSISTANT) RN Note: Formatting of this note is differe nt from the original. Routine Health Management Care Team Patient Care Team: Corrine Vazquez MD as PCP - General ([facility] Medicine) Yossi Potts, RN as Registered Nurse (Diabetes Education) Abbie Ramesh, RN as Motor Vehicle Compliance Analyst Future Scheduled Appointments No future appointments. Health Maintenance Health Maintenance Topic Date Due Urine Protein Screening 05/31/2020 Lipid Panel 09/05/2020 Glaucoma Screening 67+ Yr 12/25/2020 Ophthalmology Exam 12/25/2020 [facility] Annual Wellness 01/12/2021 Hemoglobin A1C 01/24/2021 Diabetic Foot Exam 03/16/2021 Colorectal Cancer Screening: Colonoscop y 05/21/2021 Fall Risk Performed 06/05/2021 Mammogram 12/03/2021 COVID-19 Vaccine Com[place] [facility] Pneumococcal Vaccine: <64 Com[place] [facility] Pneumococcal Vaccine: 65+ Years Com pleted HPV Vaccines Aged Out Notes: Due: Urine Protein screening Eye exam AWV A1C Lipid panel Diabetes Management General No change (02/05/2021 11:17 AM No Abbie Ramesh, RN RECORDS ASSISTANT) Note: Formatting of this note is [...] track (02/05/2021 Abbie Monzon RN 11:14 AM RECORDS ASSISTANT) Note: Formatting of this note is [...] (HCC) documented in this encounter Care Teams Bonbon Cream Warmer Relationship Specialty Start Date End Date Corrine Vazquez MD PCP - General Family Medicine 07/07/19 08/19/[address] [place] [address] documented as of this encounter
--- OUTSIDE RECORDS SUMMARY | 2021-10-24 10:39 | XMS_ITS | Encounter Summary ---
:1945 Author Organization [facility] Address [address] [place] [address] Care Team Providers Name Role Phone Corrine Vazquez MD Primary Care Provider Reason for Visit Reason Onset Date Comments med refill 03/13/2021 Encounter Details Date Type Department Care Team Description 03/13/2021 Telephone [place] Corrine Vazquez MD med refill [address] [place], [place] [address] [place], [place] [phone] (Wo rk) Social History Tobacco Use Types [...] More than 4 times per year 12/23/2018 voodoo services? Do you belong to any clubs [...] Rx faxed to [facility], Pt notified. MA PROCESSING CENTRIFUGE OPERATOR Telephone Encounter - Margareth Sanchez RN - 03/13/2021 11:10 AM CST Please fax Rx to [facility]. MA PROCESSING CENTRIFUGE OPERATOR Telephone Encounter - Corrine Vazquez MD - 03/13/2021 11:03 AM CST You can fax the Rx for Xanax to her pharmacy. MA PROCESSING CENTRIFUGE OPERATOR Telephone Encounter - Maryse Coker - 03/13/2021 10:13 AM CST Pt is requesting a refill of Xanax. She would like this to go to [facility] in [place]. Thanks. MA PROCESSING CENTRIFUGE OPERATOR documented in this encounter Plan of Treatment Not on filedocumented as of this encounter Goals Goal Patient Goal Associated Recent Patient-Stated? Author Type Problems Progress Routine Health General No change No Peter Ramesh (02/05/2021 Abbie Murray, 11:19 AM PLASMA PROCESSING CENTRIFUGE OPERATOR) RN Note: Formatting of this note is differe nt from the original. Routine Health Management Care Team Patient Care Team: Corrine Vazquez MD as PCP - General ([facility] am[facility] Medicine) Yossi Potts, RN as Registered Nurse (Diabetes Education) Abbie Ramesh RN as Tunnel Heading Supervisor Future Scheduled Appointments No future appointments. Health Maintenance Health Maintenance Topic Date Due Urine Protein Screening 05/31/2020 Lipid Panel 09/05/2020 Glaucoma Screening 67+ Yr 12/25/2020 Ophthalmology Exam 12/25/2020 [facility] [place] 01/12/2021 Hemoglobin A1C 01/24/2021 Diabetic [...] (02/05/2021 11:17 AM No Abbie Ramesh, RN PLASMA PROCESSING CENTRIFUGE OPERATOR) Note: Formatting of this note is [...] (02/05/2021 No Abbie Ramesh RN 11:14 AM PLASMA PROCESSING CENTRIFUGE OPERATOR) Note: Formatting of this note is [...] unspecified documented in this encounter Care Teams Well Logging Captain Relationship Specialty Start Date End Date Corrine Vazquez MD PCP - General Family Medicine 07/07/19 08/19/[address] [place] [address] documented as of this encounter
--- OUTSIDE RECORDS SUMMARY | 2021-10-24 10:39 | XMS_ITS | Encounter Summary ---
:1945 Author Organization [facility] Address [address] [place] [address] Care Team Providers Name Role Phone Corrine Vazquez MD Primary Care Provider Reason for Visit Reason Onset Date Comments registry management 05/09/2021 Encounter Details Date Type Department Care Team Description 05/09/2021 Telephone [place] Corrine Vazquez, registry management [address] [facility] [address] [place], [place] [id number] [place] [address] [place] [address] ([facility]) Social History Tobacco Use Types Packs/Day [...] had an eye exam recently at the [facility], RN will call for records. ??? , please advise on possible Aspirin Therapy. documented in this encounter Plan of Treatment Not on filedocumented as of this encounter Goals Goal Patient Goal Associated Recent Patient-Stated? Author Type Problems Progress Routine Health General No change No Domitila, Management (02/05/2021 Abbie Murray 11:19 AM CREDIT RISK ANALYTICS MANAGER) RN Note: Formatting of this note is differe nt from the original. Routine Health Management Care Team Patient Care Team: Corrine Vazquez MD as PCP - General ([facility] Medicine) Yossi Potts RN as Registered Nurse (Diabetes Education) Abbie Ramesh RN as Background Check Coordinator Future Scheduled Appointments No future appointments. Health [facility] [place] Pneumococcal Vaccine: <64 Completed [facility] Pneumococcal Vaccine: 65+ Years Com pleted HPV Vaccines Aged Out Notes: Due: Urine Protein screening Eye exam AWV A1C Lipid panel Diabetes Management General No change (02/05/2021 11:17 AM Abbie Monzon, RN CREDIT RISK ANALYTICS MANAGER) Note: Formatting of this note is [...] track (02/05/2021 Abbie Monzon RN 11:14 AM CREDIT RISK ANALYTICS MANAGER) Note: Formatting of this note is [...] on filedocumented in this encounter Care Teams Youth Support Worker Relationship Specialty Start Date End Date Corrine Vazquez MD PCP - General Family Medicine 07/07/19 08/19/[address] [place] [address] documented as of this encounter
--- OUTSIDE RECORDS SUMMARY | 2021-10-24 10:40 | XMS_ITS | Encounter Summary ---
:1945 Author Organization [facility] Address [address] [place] [address] Care Team Providers Name Role Phone Corrine Vazquez MD Primary Care Provider Encounter Details Date Type Department Care Team Description 07/29/2020 Orders Only [place] Corrine Vazquez MD [address] [facility] [address] [place], [place] [address] [place], [place] [phone] (Wo rk) Social History Tobacco Use Types [...] Domitila, Management (02/05/2021 Abbie Murray, 11:19 AM NAVAL AIRCREWMAN) RN Note: Formatting of this note is differe nt from the original. Routine Health Management Care Team Patient Care Team: Corrine Vazquez MD as PCP - General ([facility] Medicine) Yossi Potts, RN as Registered Nurse (Diabetes Education) Abbie Ramesh RN as Electrician Yard Future Scheduled Appointments No future appointments. Health Maintenance Health Maintenance Topic Date Due Urine Protein Screening 05/31/2020 Lipid Panel 09/05/2020 Glaucoma Screening 67+ Yr 12/25/2020 Ophthalmology Exam 12/25/2020 [facility] Wellness 01/12/2021 Hemoglobin A1C 01/24/2021 Diabetic Foot Exam 03/16/2021 Colorectal Cancer Screening: Colonoscop y 05/21/2021 Fall Risk Performed 06/05/2021 Mammogram 12/03/2021 COVID-19 Vaccine Completed [facility] Pneumococcal Vaccine: <64 Completed [facility] Pneumococcal Vaccine: 65+ Years Com pleted HPV Vaccines Aged Out Notes: Due: Urine Protein screening Eye exam AWV A1C Lipid panel Diabetes Management General No change (02/05/2021 11:17 AM No Abbie Ramesh, RN NAVAL AIRCREWMAN) Note: Formatting of this note is differe [...] track (02/05/2021 Abbie Monzon RN 11:14 AM NAVAL AIRCREWMAN) Note: Formatting of this note is differe [...] on filedocumented in this encounter Care Teams Icing And Glaze Maker Relationship Specialty Start Date End Date Corrine Vazquez MD PCP - General Family Medicine 07/07/19 08/19/[address] [place] [address] documented as of this encounter
--- OUTSIDE RECORDS SUMMARY | 2021-10-24 10:40 | XMS_ITS | Encounter Summary ---
:1945 Author Organization [facility] Address [address] [place] [address] Care Team Providers Name Role Phone Corrine Vazquez MD Primary Care Provider Encounter Details Date Type Department Care Team Description 03/18/2020 Orders Only [place] Corrine Vazquez Type [address] [place] mellitus with other [place], [place] [address] specified complication, [place] with long-term current [place], [place] use of insu [place] ([facility]) [phone] (Primary Dx) Social History Tobacco Use Types [...] Ramesh, Peter (02/05/2021 Abbie Murray, 11:19 AM LUBE WORKER) RN Note: Formatting of this note is differe nt from the original. Routine Health Management Care Team Patient Care Team: Corrine Vazquez MD as PCP - General ([facility] Medicine) Yossi Potts, RN as Registered Nurse (Diabetes Education) Abbie Ramesh, RN as Events Manager Future Scheduled Appointments No future appointments. Health Maintenance Health Maintenance Topic Date Due Urine Protein Screening 05/31/2020 Lipid Panel 09/05/2020 Glaucoma Screening 67+ Yr 12/25/2020 Ophthalmology Exam 12/25/2020 [facility] [place] 01/12/2021 Hemoglobin A1C 01/24/2021 Diabetic Foot Exam 03/16/2021 Colorectal Cancer Screening: Colonoscop y 05/21/2021 Fall Risk Performed 06/05/2021 Mammogram 12/03/2021 COVID-19 Vaccine Completed [facility] [place] Pneumococcal Vaccine: <64 Completed [facility] Pneumococcal Vaccine: 65+ Years Com pleted HPV Vaccines Aged Out Notes: Due: Urine Protein screening Eye exam AWV A1C Lipid panel Diabetes Management General No change (02/05/2021 11:17 AM Abbie Monzon, RN LUBE WORKER) Note: Formatting of this note is [...] Primary documented in this encounter Care Teams Vending Machine Host/Hostess Relationship Specialty Start Date End Date Corrine Vazquez MD PCP - General Family Medicine 07/07/19 08/19/[address] [place] [address] documented as of this encounter
--- OUTSIDE RECORDS SUMMARY | 2021-10-24 10:40 | XMS_ITS | Encounter Summary ---
:[address] [facility] Address [address] [place] [address] Care Team Providers Name Role Phone Corrine Vazquez MD Primary Care Provider Reason for Visit Consultation (Routine) - Closed Specialty Diagnoses / Procedures Referred By Contact Refer red To Contact Family Medicine Diagnoses Enrolled in chronic care management Essential hypertension Type 2 diabetes mellitus with other specified complication, with long-term current use of insulin (HCC) Mixed hyperlipidemia Corrine Vazquez MD Care Coordination [address] [place] [address] [address] [place], [place] [phone] Referral ID Status Reason Start Date Expiration Date Visits V isits Requested Authorized [id number] Closed Specialty 02/21/2020 03/18/2021 99 99 Services Required Encounter Details Date Type Department Care Team Description 07/20/2020 Patient Outreach SE Care Coordination Abbie Ramesh Counseling and coordination of care (Primary Dx); [address] [place] [address] Terri RN Type 2 diabetes mellitus with other spec ified complication, with long-term current use of insulin (HCC); [place] [address] [address] [facility] Essential hypertension [phone] [place] [address] Social History Tobacco Use Types [...] organizations such as latter day groups, unions, [employer] or athletic groups, or school groups? How [...] coronary artery disease Managed by (PCP; Cardiology; [facility]) Dr. Taylor MD (PCP)/Dr. Tena [...] Nurse (Diabetes Education) Abbie Ramesh RN as Blast Furnace Supervisor Future Scheduled Appointments No future appointments. [...] - 07/20/2020 8:20 AM CDT Care Coordination Grievance Manager: Abbie Ramesh RN Date: 07/24/2020 11:45 AM ??? Marcial calls in stating she has been busy/overwhelmed lately. Has had a lot of family stuff going on. ??? Marcial states feeling tired/weak at times. Feels similar to a few years ago when she had to havea stent placed. Appt with [facility] tomorrow. ??? Did not have any [...] Domitila Management (02/05/2021 Abbie Murray, 11:19 AM LINK MACHINE OPERATOR) RN Note: Formatting of this note is differe nt from the original. Routine Health Management Care Team Patient Care Team: Corrine Vazquez MD as PCP - [facility] Yossi Potts, RN as Registered Nurse (Diabetes Education) Abbie Ramesh RN as Blast Furnace Supervisor Future Scheduled Appointments No future appointments. Health Maintenance Health Maintenance Topic Date Due Urine Protein Screening 05/31/2020 Lipid Panel 09/05/2020 Glaucoma Screening 67+ Yr 12/25/2020 Ophthalmology Exam 12/25/2020 [facility] Annual Wellness 01/12/2021 Hemoglobin A1C 01/24/2021 Diabetic Foot Exam 03/16/2021 Colorectal Cancer Screening: Colonoscop y 05/21/2021 Fall Risk Performed 06/05/2021 Mammogram 12/03/2021 COVID-19 Vaccine Completed [facility] [place] Pneumococcal Vaccine: <64 Completed [facility] Pneumococcal Vaccine: 65+ Years Com pleted HPV Vaccines Aged Out Notes: Due: Urine Protein screening Eye exam AWV A1C Lipid panel Diabetes Management General No change (02/05/2021 11:17 AM No Abbie Ramesh RN LINK MACHINE OPERATOR) Note: Formatting of this note [...] (02/05/2021 No Abbie Ramesh, RN 11:14 AM LINK MACHINE OPERATOR) Note: Formatting of this note [...] hypertension documented in this encounter Care Teams Photo Print Specialist Relationship Specialty Start Date End Date Corrine Vazquez MD PCP - General Family Medicine 07/07/19 08/19/[address] [place] [address] documented as of this encounter
--- OUTSIDE RECORDS SUMMARY | 2021-10-24 10:40 | XMS_ITS | Encounter Summary ---
:1945 Author Organization [facility] Address [address] [place] [address] Care Team Providers Name Role Phone Corrine Vazquez MD Primary Care Provider Encounter Details Date Type Department Care Team Description 05/21/2020 Orders Only [place] Corrine Vazquez MD [address] [facility] [address] [place], [place] [address] [place], [place] [phone] (Wo rk) Social History Tobacco Use Types [...] Domitila, Management (02/05/2021 Abbie Murray, 11:19 AM MAILING SECTION CLERK) RN Note: Formatting of this note is differe nt from the original. Routine Health Management Care Team Patient Care Team: Corrine Vazquez MD as PCP - General ([facility] Medicine) Yossi Potts, RN as Registered Nurse (Diabetes Education) Abbie Ramesh RN as Commissioning Manager Future Scheduled Appointments No future appointments. Health Maintenance Health Maintenance Topic Date Due Urine Protein Screening 05/31/2020 Lipid Panel 09/05/2020 Glaucoma Screening 67+ Yr 12/25/2020 Ophthalmology Exam 12/25/2020 [facility] Annual Wellness 01/12/2021 Hemoglobin A1C 01/24/2021 Diabetic Foot Exam 03/16/2021 Colorectal Cancer Screening: Colonoscop y 05/21/2021 Fall Risk Performed 06/05/2021 Mammogram 12/03/2021 COVID-19 Vaccine Completed [facility] [place] Pneumococcal Vaccine: <64 Completed [facility] Pneumococcal Vaccine: 65+ Years Com pleted HPV Vaccines Aged Out Notes: Due: Urine Protein screening Eye exam AWV A1C Lipid panel Diabetes Management General No change (02/05/2021 11:17 AM No Abbie Ramesh, RN MAILING SECTION CLERK) Note: Formatting of this note is differe [...] track (02/05/2021 Abbie Monzon RN 11:14 AM MAILING SECTION CLERK) Note: Formatting of this note is differe [...] on filedocumented in this encounter Care Teams Multineedle Shirrer Relationship Specialty Start Date End Date Corrine Vazquez MD PCP - General Family Medicine 07/07/19 08/19/[address] [place] [address] documented as of this encounter
--- OUTSIDE RECORDS SUMMARY | 2021-10-24 10:40 | XMS_ITS | Encounter Summary ---
:1945 Author Organization [facility] Address [address] [place] [address] Care Team Providers Name Role Phone Corrine Vazquez MD Primary Care Provider Encounter Details Date Type Department Care Team Description 06/15/2020 Lab [place] Dizziness; [address] Chronic diarrhea; [place], [place] [address] Type 2 diabetes mellitus wit hout complication, with long-term current use of insulin (HCC); [phone] Type 2 diabetes mellitus with other specified [...] Domitila, Peter (02/05/2021 Abbie Murray 11:19 AM RESIDENTIAL LAWN SPECIALIST) RN Note: Formatting of this note is differe nt from the original. Routine Health Management Care Team Patient Care Team: Corrine Vazquez MD as PCP - General ([facility] Medicine) Yossi Potts, RN as Registered Nurse (Diabetes Education) Abbie Ramesh, RN as Service Station Console Operator Future Scheduled Appointments No future appointments. [...] [place] Pneumococcal Vaccine: <64 [place] [facility] [place] Pneumococcal Vaccine: 65+ Years Com pleted HPV Vaccines Aged Out Notes: Due: Urine Protein screening Eye exam AWV A1C Lipid panel Diabetes Management General No change (02/05/2021 11:17 AM Abbie Monzon, RN RESIDENTIAL LAWN SPECIALIST) Note: Formatting of this note is [...] track (02/05/2021 Abbie Monzon RN 11:14 AM RESIDENTIAL LAWN SPECIALIST) Note: Formatting of this note is [...] DISEASE Routine 06/15/2020 9:16 AM Chronic diarrhea Res ults for this SEROLOGY CASCADE CDT procedure a re in the results section. TISSUE Routine 06/15/2020 9:16 AM Results f or this TRANSGLUTAMINASE, CDT procedure are in IGA the results section. HEMOGLOBIN A1C Routine 06/15/2020 9:16 AM Type 2 diabetes Resu lts for this CDT mellitus without procedure a re in complication, with the resul ts long-term current section. use of insulin (HCC) VITAMIN B12 Routine 06/15/2020 9:16 AM Dizziness Results f or this CDT procedure are i n the results section. documented in this encounter Results Tissue transglutaminase, IgA (06/15/2020 9:16 AM CDT) P athologist Signature Tiss.Transglut <1.2 <4.0 06/19/2020 [facility] aminase Ab, S (Negative) 6:51 AM CDT LABORATORIES (IgA) U/mL Comment: Test Performed by: [facility] [address] [place] [address] [address] Installer: Pradeep Parikh M.D. Ph. D.; CLIA# [id number] (IgA) Specimen Anatomical Collection Method Collection Time Receive d Time (Source) Location / / Volume Laterality 06/15/2020 9:16 AM 1 2:34 CDT PM CDT Antonio Madsen MD LAB BLOOD ORDERABLES Performing Organization Address City/State/ZIP Code Phon e Number [facility] see result attachment for specific address (ABNORMAL) Hemoglobin A1c (06/15/2020 9:16 AM CDT) Analysis Performed At Patho logist Time Signature Hemoglobin A1C 8.4 (H) 4.0 - 5.6 06/15/2020 [place] % A1C 2:03 PM CDT [facility] Comment: Reference Range 4.0-5.6% is [...] / / Volume Laterality Blood 06/15/2020 9:16 AM 1 CDT 12:36 PM CDT Corrine Vazquez MD LAB BLOOD ORDERABLES Performing Organization Address City/State/ZIP Code Phon e Number [facility] [address] [place] [address] Celiac Disease Serology [place] (06/15/2020 9:16 AM CDT) Patholo gist Method Time Signature Immunoglobulin A [phone] 356 06/18/2020 [facility] (IgA) mg/dL 10:15 PM CDT LABORATORIES Interpretation - 06/18/2020 [facility] 10:15 PM CDT LABORATORIES Comment: Negative serology. Celiac disease unlike ly. However, approximately 10% of patients with casimiro c disease are seronegative. Also, patients who are alr claude adhering to a gluten-free diet may be seronegative. If celiac disease is highly clinically suspected, consider HL A-DQ typing. Test Performed by: [facility] [address] [address] [address] Installer: Pradeep Parikh M.D. Ph. D.; CLIA# [id number] Specimen Anatomical Collection Method Collection Time Receive d Time (Source) Location / / Volume Laterality Blood 06/15/2020 9:16 AM 2:34 CDT PM CDT Antonio Madsen MD LAB BLOOD ORDERABLES Performing Organization Address City/[facility]/ZIP Code Phon e Number [facility] see result attachment for specific address Vitamin B12 (06/15/2020 9:16 AM CDT) athologist Signature Vitamin B-12 [phone] 06/15/2020 [facility] pg/mL 2:45 PM CDT CENTER LABORATORY [...] / Volume Laterality Blood (Blood, 06/15/2020 9:16 AM 06/16/19 Venous) CDT 12:55 PM CDT Antonio Madsen MD LAB BLOOD ORDERABLES Performing Organization Address City/State/ZIP Code Phon e Number [facility] [address] [place] [address] documented in this encounter Visit Diagnoses Diagnosis Dizziness Dizziness and giddiness Chronic diarrhea Diarrhea Type 2 diabetes mellitus without complic ation, with long-term current use of insulin (HCC) Type 2 diabetes mellitus with other spec ified complication, with long-term current use of insulin (HCC) documented in this encounter Care Teams Horseshoer Relationship Specialty Start Date End Date Corrine Vazquez MD PCP - General Family Medicine 07/07/19 08/19/[address] [place] [address] documented as of this encounter
--- OUTSIDE RECORDS SUMMARY | 2021-10-24 10:40 | XMS_ITS | Encounter Summary ---
:1945 Author Organization [facility] Address [address] [place] [address] Care Team Providers Name Role Phone Corrine Vazquez MD Primary Care Provider Reason for Visit Consultation (Routine) - Closed Specialty Diagnoses / Procedures Referred By Contact Refer red To Contact Family Medicine Diagnoses Enrolled in chronic care management Essential hypertension Type 2 diabetes mellitus with other specified complication, with long-term current use of insulin (HCC) Mixed hyperlipidemia Corrine Vazquez MD Care Coordination [address] [place] [phone] Referral ID Status Reason Start Date Expiration Date Visits V isits Requested Authorized [id number] Closed Specialty 02/21/2020 03/18/2021 99 99 Services Required Encounter Details Date Type Department Care Team Description 04/25/2020 Patient Outreach SE Care Coordination Abbie Ramesh, [address] [place] [address] [place] [address] [place] [phone] Social History Tobacco Use Types Packs/Day Years [...] 12/23/2018 organizations such as restorationist groups, unions, [employer] or athletic groups, or school groups? How [...] is first attempt to call this month. E GRINDER documented in this encounter Plan of Treatment Not on filedocumented as of this encounter Goals Goal Patient Goal Associated Recent Patient-Stated? Author Type Problems Progress Routine Health General No change Peter Monzon (02/05/2021 Abbie Murray, 11:19 AM FLUTE GRINDER) RN Note: Formatting of this note is differe nt from the original. Routine Health Management Care Team Patient Care Team: Corrine Vazquez MD as PCP - [facility] Yossi Potts, RN as Registered Nurse (Diabetes Education) Abbie Ramesh RN as Credentialing Assistant Future Scheduled Appointments No future appointments. [...] (02/05/2021 11:17 AM No Abbie Ramesh, RN FLUTE GRINDER) Note: Formatting of this note is differe [...] (02/05/2021 No Abbie Ramesh, RN 11:14 AM FLUTE GRINDER) Note: Formatting of this note is differe [...] on filedocumented in this encounter Care Teams Lamination Machine Operator Relationship Specialty Start Date End Date Corrine Vazquez MD PCP - General Family Medicine 07/07/19 08/19/[address] [place] [address] documented as of this encounter
--- OUTSIDE RECORDS SUMMARY | 2021-10-24 10:40 | XMS_ITS | Encounter Summary ---
:1945 Author Organization [facility] Address [address] [place] [address] Care Team Providers Name Role Phone Corrine [...] Ramesh Management (02/05/2021 Abbie Murray, 11:19 AM VENDING ENTERPRISES SUPERVISOR) RN Note: Formatting of this note is differe nt from the original. Routine Health Management Care Team Patient Care Team: Corrine Vazquez MD as PCP - General ([facility] Medicine) Yossi Potts, RN as Registered Nurse (Diabetes Education) Abbie Ramesh, RN as Automotive Wholesale Parts Advisor Future Scheduled Appointments No future appointments. Health Maintenance Health Maintenance Topic Date Due Urine Protein Screening 05/31/2020 Lipid Panel 09/05/2020 Glaucoma Screening 67+ Yr 12/25/2020 Ophthalmology Exam 12/25/2020 [facility] Annual Wellness 01/12/2021 Hemoglobin A1C 01/24/2021 Diabetic Foot Exam 03/16/2021 Colorectal Cancer Screening: Colonoscop y 05/21/2021 Fall Risk Performed 06/05/2021 Mammogram 12/03/2021 COVID-19 Vaccine Completed [facility] Pneumococcal Vaccine: <64 Completed [facility] Pneumococcal Vaccine: 65+ Years Com pleted HPV Vaccines Aged Out Notes: Due: Urine Protein screening Eye exam AWV A1C Lipid panel Diabetes Management General No change (02/05/2021 11:17 AM No Abbie Ramesh, RN VENDING ENTERPRISES SUPERVISOR) Note: Formatting of this note is [...] track (02/05/2021 Abbie Monzon RN 11:14 AM VENDING ENTERPRISES SUPERVISOR) Note: Formatting of this note is differe nt from the original. Cardiovascular Management Essential hypertension Chronic coronary artery disease Managed by (PCP; Cardiology; [facility]) Dr. Ronak lozoya MD [...] on filedocumented in this encounter Care Teams Mobile Ui Developer Relationship Specialty Start Date End Date Corrine Vazquez MD PCP - General Family Medicine 07/07/19 08/19/[address] [place] [address] documented as of this encounter
--- OUTSIDE RECORDS SUMMARY | 2021-10-24 10:40 | XMS_ITS | Encounter Summary ---
:1945 Author Organization [facility] Address [address] [place] [address] Care Team Providers Name Role Phone Corrine Vazquez MD Primary Care Provider Reason for Referral Consultation (Routine) - Closed Specialty Diagnoses / Procedures Referred By Contact Refer red To Contact Diagnoses Osteoporosis screening Corrine Vazquez MD [facility] [address] [place] [phone] Referral ID Status Reason Start Date Expiration Date Visits Requ ested Visits Authorized [id number] Closed 03/17/2020 03/17/2021 1 1 OFFICE ASSISTANT Reason for Visit Reason Comments Diabetes Encounter Details Date Type Department Care Team Description 03/16/2020 Office Visit [place] Corrine Vazquez Osteoporosis screening (Prim lara Dx); [address] [place] Type 2 diabetes mellitus with other spec ified complication, with long-term current use of insulin ([facility]); [place], [place] [address] Essential hypertension; [phone] [place] Hypothyroidism, unspecified type; [place], [place] Anxiety; [phone] Type 2 diabetes mellitus with other spec ified complication, without long-term current use of insulin ([facility]) Social History Tobacco Use Types Packs/Day Years [...] Comments Blood Pressure 138/76 03/16/2020 9:09 AM LAW OFFICE ASSISTANT Pulse 88 03/16/2020 9:09 AM LAW OFFICE ASSISTANT Temperature 35.9 ??C (96.7 ??F) 03/16/2020 9:09 AM LAW OFFICE ASSISTANT Respiratory Rate 16 03/16/2020 9:09 AM LAW OFFICE ASSISTANT Oxygen Saturation 98% 03/16/2020 9:09 AM LAW OFFICE ASSISTANT Inhaled Oxygen Concentration - - Weight 82.1 kg (181 lb) 03/16/2020 9:09 AM LAW OFFICE ASSISTANT Height 160.3 cm (5' 3.11) 03/16/2020 9:09 AM LAW OFFICE ASSISTANT Body Mass Index 31.95 03/16/2020 9:09 AM LAW OFFICE ASSISTANT documented in this encounter Progress Notes Corrine [...] additional Metamucil twice a day and I haveexplained to her that she will probably get [...] insulin. SECOND patient had her mammogram in [place] we do not have records on her chart but she said it was normal and done November 2019. THIRD the patient needed her alprazolam updated. FOURTH her blood pressures though not bad have been consistently upper 130s in the 140s she is not on any blood pressure medications at this time we will start her on Norvasc 5 mg tablet daily. She hashad reactions to both THERON inhibitors and ARB [...] long-term current use of insulin (HCC) - glucose blood test strip; Use as instructed: CONTOUR NEXT TEST STRIP, three times a day to check blood sugar. HgbA1c: 8.3 09/06/2019 Essential hypertension - amLODIPine (Norvasc) 5 MG tablet; Take 1/2 tab a day for the first ten days then ONE tab daily forblood pressure Hypothyroidism, unspecified type - TSH; Future [...] changes of medication and coordination of cares. OFFICE ASSISTANT documented in this encounter Plan of Treatment Scheduled Referrals Name Type Priority Associated Diagnoses Order S chedule Ambulatory External Outpatient Referral Routine Osteoporosis O rdered: Referral screening 03/17/2020 documented as of this encounter Goals Goal Patient Goal Associated Recent Patient-Stated? Author Type Problems Progress Routine Health General No change Peter Monzon (02/05/2021 Abbie Murray, 11:19 AM LAW OFFICE ASSISTANT) RN Note: Formatting of this note is differe nt from the original. Routine Health Management Care Team Patient Care Team: Corrine Vazquez MD as PCP - General ([facility] Medicine) Yossi Potts, RN as Registered Nurse (Diabetes Education) Abbie Ramesh RN as Sonogram Technician Future Scheduled Appointments No future appointments. Health Maintenance Health Maintenance Topic Date Due Urine Protein Screening 05/31/2020 Lipid Panel 09/05/2020 Glaucoma Screening 67+ Yr 12/25/2020 Ophthalmology Exam 12/25/2020 [facility] Annual Wellness 01/12/2021 Hemoglobin A1C 01/24/2021 Diabetic Foot Exam 03/16/2021 Colorectal Cancer Screening: Colonoscop y 05/21/2021 Fall Risk Performed 06/05/2021 Mammogram 12/03/2021 COVID-19 Vaccine [place] [facility] Pneumococcal Vaccine: <64 Com[place] [facility] Pneumococcal Vaccine: 65+ Years Com pleted HPV Vaccines Aged Out Notes: Due: Urine Protein screening Eye exam AWV A1C Lipid panel Diabetes Management General No change (02/05/2021 11:17 AM No Abbie Ramesh, RN LAW OFFICE ASSISTANT) Note: Formatting of this note [...] this encounter Results TSH (03/16/2020 10:17 AM LAW OFFICE ASSISTANT) P athologist Signature TSH, Sensitive 1.59 0.46 - 03/16/2020 IBIS ROSARIO L 4.68 mIU/L 6:59 PM LAW OFFICE ASSISTANT [facility] Comment: The results from this [...] / Volume Laterality Blood 03/16/2020 10:17 03/16/2020 5:59 AM LAW OFFICE ASSISTANT PM LAW OFFICE ASSISTANT D. [place] Vazquez MD LAB BLOOD ORDERABLES Performing Organization Address City/State/ZIP Code Phon e Number [facility] [address] [place] [address] documented in this encounter Visit Diagnoses Diagnosis [...] (HCC) documented in this encounter Care Teams Merchandising Intern Relationship Specialty Start Date End Date Corrine Vazquez MD PCP - General Family Medicine 07/07/19 08/19/[address] [place] [address] documented as of this encounter
--- OUTSIDE RECORDS SUMMARY | 2021-10-24 10:40 | XMS_ITS | Encounter Summary ---
:1945 Author Organization [facility] Address [address] [place] [address] Care Team Providers Name Role Phone Corrine Vazquez MD Primary Care Provider Reason for Visit Reason Onset Date Comments Med Refill 10/17/2020 Encounter Details Date Type Department Care Team Description 10/17/2020 Refill [place] Corrine Vazquez, Type 2 diabetes mellitus [address] without complication, [place], [place] [address] with long-term current [phone] [place] use of insu [place] ([facility]) [phone] (Primary Dx) Social History Tobacco Use Types [...] day Labs:Contains abnormal data Hemoglobin A1c Order: [id number] (suggestion) Information displayed in this report will [...] 14:13 Last Resulted: 07/25/20 14:31 Received From: [facility] Result Received: 09/07/20 12:06 Vitals: BP Readings from Last 2 Encounters: 10/08/20 120/80 06/19/20 120/60 documented in this encounter Plan of Treatment Not on filedocumented as of this encounter Goals Goal Patient Goal Associated Recent Patient-Stated? Author Type Problems Progress Routine Health General No change No Peter Ramesh (02/05/2021 Abbie Murray, 11:19 AM PRESS DEPARTMENT MANAGER) RN Note: Formatting of this note is differe nt from the original. Routine Health Management Care Team Patient Care Team: Corrine Vazquez MD as PCP - General (F amily Medicine) Yossi Potts, RN as Registered Nurse (Diabetes Education) Abbie Ramesh RN as Music Coordinator Future Scheduled Appointments No future appointments. [facility] Pneumococcal Vaccine: <64 Completed [facility] Pneumococcal Vaccine: 65+ Years Com pleted HPV Vaccines Aged Out Notes: Due: Urine Protein screening Eye exam AWV A1C Lipid panel Diabetes Management General No change (02/05/2021 11:17 AM No Abbie Ramesh RN PRESS DEPARTMENT MANAGER) Note: Formatting of this note is [...] track (02/05/2021 Abbie Monzon RN 11:14 AM PRESS DEPARTMENT MANAGER) Note: Formatting of this note is differe nt from the original. Cardiovascular Management Essential hypertension Chronic coronary artery disease Managed by (PCP; Cardiology; [facility]) Dr. Ronak lozoya MD (PCP)/Dr. [...] Primary documented in this encounter Care Teams Marketing Clerk Relationship Specialty Start Date End Date Corrine Vazquez MD PCP - General Family Medicine 07/07/19 08/19/[address] [place] [address] documented as of this encounter
--- OUTSIDE RECORDS SUMMARY | 2021-10-24 10:40 | XMS_ITS | Encounter Summary ---
:1945 Author Organization [facility] Address [address] [place] [address] Care Team Providers Name Role Phone Corrine Vazquez MD Primary Care Provider Reason for Visit Reason Comments Skin tag removal Encounter Details Date Type Department Care Team Description 11/09/2020 Office Visit [place] Corrine Vazquez Skin lesion (Primary Dx); [address] [place] Type 2 diabetes mellitus with other spec ified complication, with long-term current use of insulin (HCC); [place] [address] Anemia, unspecified type; [phone] [place] Immunization due ABEBA Vieira [id number] Social History Tobacco Use Types Packs/Day Years [...] time however if her blood pressure continues real more elevated would consider a very low dose of diltiazem a different type of calcium rich or a very low dose of hydrochlorothiazide that will [...] total) by mouth 1 (one) time each daywith breakfast Immunization due - Flu Vaccine High Dose 65yrs and Older IM Procedures after consent was given patient taken back to the treatment room. The lesion in question again on the midportion of the dorsum of her right forearm was first prepped with alcohol and Betadine prep. This was anesthetized with about a cc of lidocaine. We then sliced itoff at the base of the lesion and [...] Peter Ramesh (02/05/2021 Abbie Murray, 11:19 AM ELECTRIC FAN ASSEMBLER) RN Note: Formatting of this note is differe nt from the original. Routine Health Management Care Team Patient Care Team: Corrine Vazquez MD as PCP - General (F amily Medicine) Yossi Potts, RN as Registered Nurse (Diabetes Education) Abbie Ramesh RN as Category Development Analyst Future Scheduled Appointments No future appointments. Health Maintenance Health Maintenance Topic Date Due Urine Protein Screening 05/31/2020 Lipid Panel 09/05/2020 Glaucoma Screening 67+ Yr 12/25/2020 Ophthalmology Exam 12/25/2020 [facility] [place]ness 01/12/2021 Hemoglobin A1C 01/24/2021 Diabetic Foot Exam 03/16/2021 Colorectal Cancer Screening: Colonoscop y 05/21/2021 Fall Risk Performed 06/05/2021 Mammogram 12/03/2021 COVID-19 Vaccine Completed [facility] Pneumococcal Vaccine: <64 Completed [facility] Pneumococcal Vaccine: 65+ Years Com pleted HPV Vaccines Aged Out Notes: Due: Urine Protein screening Eye exam AWV A1C Lipid panel Diabetes Management General No change (02/05/2021 11:17 AM No Abbie Ramesh RN ELECTRIC FAN ASSEMBLER) Note: Formatting of this note is [...] (02/05/2021 No Abbie Ramesh RN 11:14 AM ELECTRIC FAN ASSEMBLER) Note: Formatting of this note is differe nt from the original. Cardiovascular Management Essential hypertension Chronic coronary artery disease Managed by (PCP; Cardiology; [facility]) Dr. Ronak lozoya MD (PCP)/Dr. Tena MD [...] Routine 11/09/2020 2:51 PM Skin lesion Results f or this CDT procedure are i n the results section . documented in this encounter Results Pathology (11/09/2020 2:51 PM CDT) Specimen Anatomical Collection Method Collection Time Receive d Time (Source) Location / / Volume Laterality Skin 11/09/2020 2:51 PM 9:15 CDT AM CDT [address] [facility] - 10/18 12:08 PM CDT ? [facility] ? [address] ?[place] [address] ? Patient: ?MARCIAL BAZAN ?Procedure: ? 11/09/2020 14:51 /Age/Sex: ??1945, 75 Y, F ?Received: ?11/12/2020 09:15 ? Accession #: ?? [id number] Billing: ?[id number] ? Patient Location: [facility] ? OFFICE [...] completely submitted in cassette A1. REGGIE Yoder ([facility]) CM Patient's identification labels match on requisition [facility] [address] [place] [address] documented in this encounter Visit Diagnoses Diagnosis [...] dose documented in this encounter Care Teams Cash Applications Clerk Relationship Specialty Start Date End Date Corrine Vazquez MD PCP - General Family Medicine 07/07/19 08/19/[address] [place] [address] documented as of this encounter
--- OUTSIDE RECORDS SUMMARY | 2021-10-24 10:40 | XMS_ITS | Encounter Summary ---
:1945 Author Organization [facility] Address [address] [place] [address] Care Team Providers Name Role Phone Corrine Vazquez MD Primary Care Provider Reason for Visit Consultation (Routine) - Closed Specialty Diagnoses / Procedures Referred By Contact Refer red To Contact Family Medicine Diagnoses Enrolled in chronic care management Essential hypertension Type 2 diabetes mellitus with other specified complication, with long-term current use of insulin (HCC) Mixed hyperlipidemia Corrine Vazquez MD Care Coordination [facility] [place] [address] [place], [place] [phone] Referral ID Status Reason Start Date Expiration Date Visits V isits Requested Authorized [id number] Closed Specialty 02/21/2020 03/18/2021 99 99 Services Required Encounter Details Date Type Department Care Team Description 09/07/2020 Patient Outreach SE Care Coordination Abbie Ramesh Counseling and coordination of care (Primary Dx); [address] [place] [address] Terri RN Type 2 diabetes mellitus with other spec ified complication, with long-term current use of insulin ([place]) [place] [address] [address] [facility] [phone] [place] [address] Social History Tobacco Use Types [...] More than 4 times per year 12/23/2018 zoroastrianism services? Do you belong to any clubs or No 12/23/2018 organizations such as anabaptist groups, unions, fraMirDeneg or athletic groups, or school groups? How [...] Peter Monzon (02/05/2021 Abbie Murray, 11:19 AM GROUP DIRECTOR) RN Note: Formatting of this note is differe nt from the original. Routine Health Management Care Team Patient Care Team: Corrine Vazquez MD as PCP - General ([facility] Medicine) Yossi Potts RN as Registered Nurse (Diabetes Education) Abbie Ramesh RN as Marking Machine Tender Future Scheduled Appointments No future appointments. Health Maintenance Health Maintenance Topic Date Due Urine Protein Screening 05/31/2020 Lipid Panel 09/05/2020 Glaucoma Screening 67+ Yr 12/25/2020 Ophthalmology Exam 12/25/2020 [facility] [place] 01/12/2021 Hemoglobin A1C 01/24/2021 Diabetic Foot Exam 03/16/2021 Colorectal Cancer Screening: Colonoscop y 05/21/2021 Fall Risk Performed 06/05/2021 Mammogram 12/03/2021 COVID-19 Vaccine Completed [facility] Pneumococcal Vaccine: <64 Completed [facility] Pneumococcal Vaccine: 65+ Years Com pleted HPV Vaccines Aged Out Notes: Due: Urine Protein screening Eye exam AWV A1C Lipid panel Diabetes Management General No change (02/05/2021 11:17 AM No Abbie Ramesh, RN GROUP DIRECTOR) Note: Formatting of this note is differe [...] (02/05/2021 No Abbie Ramesh, RN 11:14 AM GROUP DIRECTOR) Note: Formatting of this note is differe [...] (HCC) documented in this encounter Care Teams Janitor Relationship Specialty Start Date End Date Corrine Vazquez MD PCP - General Family Medicine 07/07/19 08/19/[address] [place] [address] documented as of this encounter
--- OUTSIDE RECORDS SUMMARY | 2021-10-24 10:40 | XMS_ITS | Encounter Summary ---
:1945 Author Organization [facility] Address [address] [place] [address] Care Team Providers Name Role Phone Corrine Vazquez MD Primary Care Provider Reason for Visit Reason Onset Date Comments yeast inf Rx 06/22/2020 Encounter Details Date Type Department Care Team Description 06/22/2020 Telephone [place] Antonio Madsen MD yeast inf Rx [address] [place], [place] [address] [place], [place] [phone] (Wo rk) Social History Tobacco Use Types [...] uses [facility]. Please call Pt [phone] to advise. documented in this encounter Plan of Treatment Not on filedocumented as of this encounter Goals Goal Patient Goal Associated Recent Patient-Stated? Author Type Problems Progress Routine Health General No change Peter Monzon (02/05/2021 Abbie Murray, 11:19 AM BARBECUE COOK) RN Note: Formatting of this note is differe nt from the original. Routine Health Management Care Team Patient Care Team: Corrine Vazquez MD as PCP - General ([facility]) Yossi Potts, RN as Registered Nurse (Diabetes Education) Abbie Ramesh RN as Communications Professor Future Scheduled Appointments No future appointments. Health Maintenance Health Maintenance Topic Date Due Urine Protein Screening 05/31/2020 Lipid Panel 09/05/2020 Glaucoma Screening 67+ Yr 12/25/2020 Ophthalmology Exam 12/25/2020 [facility] Annual Wellness 01/12/2021 Hemoglobin A1C 01/24/2021 Diabetic Foot Exam 03/16/2021 Colorectal Cancer Screening: Colonoscop y 05/21/2021 Fall Risk Performed 06/05/2021 Mammogram 12/03/2021 COVID-19 Vaccine Completed [facility] Pneumococcal Vaccine: <64 Completed [facility] Pneumococcal Vaccine: 65+ Years Com pleted HPV Vaccines Aged Out Notes: Due: Urine Protein screening Eye exam AWV A1C Lipid panel Diabetes Management General No change (02/05/2021 11:17 AM Abbie Monzon, RN BARBECUE COOK) Note: Formatting of this note is differe [...] (02/05/2021 No Abbie Ramesh, RN 11:14 AM BARBECUE COOK) Note: Formatting of this note is differe [...] Primary documented in this encounter Care Teams Paper Core Machine Operator Relationship Specialty Start Date End Date Corrine Vazquez MD PCP - General Family Medicine 07/07/19 08/19/[address] [place] [address] documented as of this encounter
--- OUTSIDE RECORDS SUMMARY | 2021-10-24 10:40 | XMS_ITS | Encounter Summary ---
:1945 Author Organization [facility] Address [address] [place] [address] Care Team Providers Name Role Phone Corrine Vazquez MD Primary Care Provider Reason for Visit Reason Onset Date Comments Med Refill 03/19/2020 Encounter Details Date Type Department Care Team Description 03/19/2020 Telephone [place] Corrine Vazquez MD Med Refill [address] [place], [place] [address] [place], [place] [phone] (Wo rk) Social History Tobacco Use Types [...] this encounter Miscellaneous Notes Telephone Encounter - Laan Knight LPN - 03/19/2020 9:00 AM CST Noted AR REPAIR TECHNICIAN Telephone Encounter - Luciana Albarado - 03/19/2020 8:32 AM CST Both Rx's faxed to [facility] as requested. AR REPAIR TECHNICIAN Telephone Encounter - Margareth Sanchez RN - 03/19/2020 8:13 AM CST Please fax Rx for Xanax and test strips to patients pharmacy [facility]. AR REPAIR TECHNICIAN documented in this encounter Plan of Treatment Not on filedocumented as of this encounter Goals Goal Patient Goal Associated Recent Patient-Stated? Author Type Problems Progress Routine Health General No change Peter Monzon (02/05/2021 Abbie Murray, 11:19 AM GUITAR REPAIR TECHNICIAN) RN Note: Formatting of this note is differe nt from the original. Routine Health Management Care Team Patient Care Team: Corrine Vazquez MD as PCP - [facility] Yossi Potts, RN as Registered Nurse (Diabetes Education) Abbie Ramesh RN as Patient Relations Coordinator Future Scheduled Appointments No future appointments. Health Maintenance Health Maintenance Topic Date Due Urine Protein Screening 05/31/2020 Lipid Panel 09/05/2020 Glaucoma Screening 67+ Yr 12/25/2020 Ophthalmology Exam 12/25/2020 [facility] Annual Wellness 01/12/2021 Hemoglobin A1C 01/24/2021 Diabetic Foot Exam 03/16/2021 Colorectal Cancer Screening: Colonoscop y 05/21/2021 Fall Risk Performed 06/05/2021 Mammogram 12/03/2021 COVID-19 Vaccine Completed [facility] Pneumococcal Vaccine: <64 Completed [facility] Pneumococcal Vaccine: 65+ Years Com pleted HPV Vaccines Aged Out Notes: Due: Urine Protein screening Eye exam AWV A1C Lipid panel Diabetes Management General No change (02/05/2021 11:17 AM Abbie Monzon, RN GUITAR REPAIR TECHNICIAN) Note: Formatting of this note [...] on filedocumented in this encounter Care Teams Harness Fitter Relationship Specialty Start Date End Date Corrine Vazquez MD PCP - General Family Medicine 07/07/19 08/19/[address] [place] [address] documented as of this encounter
--- OUTSIDE RECORDS SUMMARY | 2021-10-24 10:40 | XMS_ITS | Encounter Summary ---
:1945 Author Organization [facility] Address [address] [place] [address] Care Team Providers Name Role Phone Corrine Vazquez MD Primary Care Provider Reason for Visit Reason Onset Date Comments referral 03/19/2020 Encounter Details Date Type Department Care Team Description 03/19/2020 Telephone [place] Corrine Vazquez MD referral [address] [place], [place] [address] [place], [place] [phone] (Wo rk) Social History Tobacco Use Types [...] - 03/19/2020 8:16 AM CST Referral faxed. ER Telephone Encounter - Margareth Sanchez RN - 03/19/2020 7:57 AM CST Please fax. ER Telephone Encounter - Margareth Sanchez RN - 03/19/2020 7:57 AM CST ----- Message from Corrine Vazquez MD sent at 03/17/2020 12:40 PM ISSUER ----- I have placed an order for Marcial to get a BMD at the [facility]. Please copy and fax. ER documented in this encounter Plan of Treatment Not on filedocumented as of this encounter Goals Goal Patient Goal Associated Recent Patient-Stated? Author Type Problems Progress Routine Health General No change No Peter Ramesh (02/05/2021 Abbie Murray, 11:19 AM ISSUER) RN Note: Formatting of this note is differe nt from the original. Routine Health Management Care Team Patient Care Team: Corrine Vazquez MD as PCP - [facility] Yossi Potts, RN as Registered Nurse (Diabetes Education) Abbie Ramesh RN as Safety Physician Future Scheduled Appointments No future appointments. [...] (02/05/2021 11:17 AM No Abbie Ramesh RN ISSUER) Note: Formatting of this note is differe [...] on filedocumented in this encounter Care Teams Bricklayer Helper Relationship Specialty Start Date End Date Corrine Vazquez MD PCP - General Family Medicine 07/07/19 08/19/[address] [place] [address] documented as of this encounter
--- OUTSIDE RECORDS SUMMARY | 2021-10-24 10:40 | XMS_ITS | Encounter Summary ---
:1945 Author Organization [facility] Address [address] [place] [address] Care Team Providers Name Role Phone Corrine Vazquez MD Primary Care Provider Reason for Visit Consultation (Routine) - Closed Specialty Diagnoses / Procedures Referred By Contact Refer red To Contact Family Medicine Diagnoses Enrolled in chronic care management Essential hypertension Type 2 diabetes mellitus with other specified complication, with long-term current use of insulin (HCC) Mixed hyperlipidemia Corrine Vazquez MD Care Coordination [address] [place] [address] [address] [place], [place] [phone] Referral ID Status Reason Start Date Expiration Date Visits V isits Requested Authorized [id number] Closed Specialty 02/21/2020 03/18/2021 99 99 Services Required Encounter Details Date Type Department Care Team Description 06/22/2020 Patient Outreach SE Care Coordination Abbie Ramesh Counseling and coordination of care (Primary Dx); [address] [place] [address] Terri RN Type 2 diabetes mellitus with other spec ified complication, with long-term current use of insulin (HCC); [place] [address] [address] [facility] Essential hypertension [phone] [place] [address] Social History Tobacco Use Types [...] 12/23/2018 organizations such as jew groups, unions, fraQapa or athletic groups, or school groups? How [...] coronary artery disease Managed by (PCP; Cardiology; [facility]) Dr. Taylor MD (PCP)/Dr. Tena [...] Nurse (Diabetes Education) Abbie Ramesh RN as Flower Stripper Future Scheduled Appointments No future appointments. [...] Peter Monzon (02/05/2021 Abbie Murray, 11:19 AM PILOT STEAM YACHT) RN Note: Formatting of this note is differe nt from the original. Routine Health Management Care Team Patient Care Team: Corrine Vazquez MD as PCP - General ([facility] Medicine) Yossi Potts RN as Registered Nurse (Diabetes Education) Abbie Ramesh RN as Flower Stripper Future Scheduled Appointments No future appointments. Health Maintenance Health Maintenance Topic Date Due Urine Protein Screening 05/31/2020 Lipid Panel 09/05/2020 Glaucoma Screening 67+ Yr 12/25/2020 Ophthalmology Exam 12/25/2020 [facility] Annual Wellness 01/12/2021 Hemoglobin A1C 01/24/2021 Diabetic Foot Exam 03/16/2021 Colorectal Cancer Screening: Colonoscop y 05/21/2021 Fall Risk Performed 06/05/2021 Mammogram 12/03/2021 COVID-19 Vaccine Completed [facility] Pneumococcal Vaccine: <64 Completed [facility] Pneumococcal Vaccine: 65+ Years Com pleted HPV Vaccines Aged Out Notes: Due: Urine Protein screening Eye exam AWV A1C Lipid panel Diabetes Management General No change (02/05/2021 11:17 AM Abbie Monzon, RN PILOT STEAM YACHT) Note: Formatting of this note is differe [...] track (02/05/2021 Abbie Monzon RN 11:14 AM PILOT STEAM YACHT) Note: Formatting of this note is differe nt from the original. Cardiovascular Management Essential hypertension Chronic coronary artery disease Managed by (PCP; Cardiology; [facility]) Dr. Ronak lozoya MD (PCP)/Dr. [...] hypertension documented in this encounter Care Teams Casino Cashier Relationship Specialty Start Date End Date Corrine Vazquez MD PCP - General Family Medicine 07/07/19 08/19/[address] [place] [address] documented as of this encounter
--- OUTSIDE RECORDS SUMMARY | 2021-10-24 10:40 | XMS_ITS | Encounter Summary ---
:1945 Author Organization [facility] Address [address] [place] [address] Care Team Providers Name Role Phone Corrine Vazquez MD Primary Care Provider Reason for Visit Reason Comments Dizziness Headache Fatigue Encounter Details Date Type Department Care Team Description 06/05/2020 Office Visit [place] Antonio Madsen, Dizziness (Primary Dx); [address] Decreased vibratory sense; [place], [place] [address] Orthostatic hypotension; [address] [place], [place] Essential hypertension; [phone] [id number] Type 2 diabetes mellitus with other spec ified complication, with long-term current use of insulin (HCC); [phone] Chronic diarrhe a; (Work) Venous insufficiency; Early [...] her blood sugar is in the 200s. Ifit is in the 150s she will have a snack before bed because it will be too low in the morning if she does not take a snack. She has not [...] insulin(HCC) 6. Chronic diarrhea Celiac Disease Serology [place] 7. Venous insufficiency 8. Early satiety Her [...] EGD and have her seen by her Manager Code. Her glucose levels at least from review [...] Peter Ramesh (02/05/2021 Abbie Murray, 11:19 AM MATRIX WORKER) RN Note: Formatting of this note is differe nt from the original. Routine Health Management Care Team Patient Care Team: Corrine Vazquez MD as PCP - General ([facility] Medicine) Yossi Potts RN as Registered Nurse (Diabetes Education) Abbie Ramesh RN as Automobile Radio Repairer Future Scheduled Appointments No future appointments. Health Maintenance Health Maintenance Topic Date Due Urine Protein Screening 05/31/2020 Lipid Panel 09/05/2020 Glaucoma Screening 67+ Yr 12/25/2020 Ophthalmology Exam 12/25/2020 [facility] Annual Wellness 01/12/2021 Hemoglobin A1C 01/24/2021 Diabetic Foot Exam 03/16/2021 Colorectal Cancer Screening: Colonoscop y 05/21/2021 Fall Risk Performed 06/05/2021 Mammogram 12/03/2021 COVID-19 Vaccine Completed [facility] Pneumococcal Vaccine: <64 Completed [facility] Pneumococcal Vaccine: 65+ Years Com pleted HPV Vaccines Aged Out Notes: Due: Urine Protein screening Eye exam AWV A1C Lipid panel Diabetes Management General No change (02/05/2021 11:17 AM No Abbie Ramesh RN MATRIX WORKER) Note: Formatting of this note is [...] No Roschen, Abbie J, RN 11:14 AM MATRIX WORKER) Note: Formatting of this note is [...] athologist Signature Vitamin B-12 [phone] 361 06/15/2020 [facility] pg/mL 2:45 PM CDT CENTER LABORATORY [...] Number [facility] [address] [place] [address] Celiac Disease Serology [place] (06/15/2020 9:16 AM CDT) Patholo gist Method Time Signature Immunoglobulin A 313 61 - 356 06/18/2020 [facility] (IgA) mg/dL 10:15 PM CDT LABORATORIES Interpretation - 06/18/2020 [facility] 10:15 PM CDT LABORATORIES Comment: Negative serology. Celiac disease unlike ly. However, approximately 10% of patients with casimiro c disease are seronegative. Also, patients who are alr claude adhering to a gluten-free diet may be seronegative. If celiac disease is highly clinically suspected, consider HL A-DQ typing. Test Performed by: [facility] [address] [place], [place] [address] Nuclear Weapons Specialist: Pradeep Parikh M.D. Ph. D.; CLIA# [id number] Specimen Anatomical Collection Method Collection Time Receive d Time (Source) Location / / Volume Laterality Blood 06/15/2020 9:16 AM 2:34 CDT PM CDT Antonio Madsen MD LAB BLOOD ORDERABLES Performing Organization Address City/State/ZIP Code Phon e Number [facility] see result attachment for specific address documented [...] satiety documented in this encounter Care Teams Control Clerk Relationship Specialty Start Date End Date Corrine Vazquez MD PCP - General Family Medicine 07/07/19 08/19/[address] [place] [address] documented as of this encounter
--- OUTSIDE RECORDS SUMMARY | 2021-10-24 10:40 | XMS_ITS | Encounter Summary ---
:1945 Author Organization [facility] Address [address] [place] [address] Care Team Providers Name Role Phone Corrine Vazquez MD Primary Care Provider Encounter Details Date Type Department Care Team Description 04/01/2020 Orders Only [place] Corrine Vazquez MD [address] [facility] [address] [place], [place] [address] [place], [place] [phone] (Wo rk) Social History Tobacco Use Types [...] or relatives? How often do you attend restorationism or More than 4 times per year 12/23/2018 lutheran services? Do you belong to any clubs or No 12/23/2018 organizations such as restorationism groups, unions, fraternal or athletic groups, or [...] Domitila, Management (02/05/2021 Abbie Murray, 11:19 AM PHYSICAL INSTRUCTOR) RN Note: Formatting of this note is differe nt from the original. Routine Health Management Care Team Patient Care Team: Corrine Vazquez MD as PCP - General ([facility] Medicine) Yossi Potts, RN as Registered Nurse (Diabetes Education) Abbie Ramesh RN as Wedding Florist Future Scheduled Appointments No future appointments. Health [...] [facility] [place] Pneumococcal Vaccine: <64 Completed [facility] Pneumococcal Vaccine: 65+ Years Com pleted HPV Vaccines Aged Out Notes: Due: Urine Protein screening Eye exam AWV A1C Lipid panel Diabetes Management General No change (02/05/2021 11:17 AM No Abbie Ramesh, RN PHYSICAL INSTRUCTOR) Note: Formatting of this note is [...] on filedocumented in this encounter Care Teams Gas Scrubber Operator Relationship Specialty Start Date End Date Corrine Vazquez MD PCP - General Family Medicine 07/07/19 08/19/[address] [place] [address] documented as of this encounter
--- OUTSIDE RECORDS SUMMARY | 2021-10-24 10:40 | XMS_ITS | Encounter Summary ---
:1945 Author Organization [facility] Address [address] [place] [address] Care Team Providers Name Role Phone Corrine Vazquez MD Primary Care Provider Reason for Visit Reason Onset Date Comments Mammogram 202003/22/2020 Encounter Details Date Type Department Care Team Description 03/22/2020 Telephone [place] Corrine Vazquez MD Mammogram [address] [place], [place] [address] [place], [place] [phone] (Wo rk) Social History Tobacco Use Types [...] More than 4 times per year 12/23/2018 jewish services? Do you belong to any clubs [...] - 03/22/2020 2:15 PM CST DONE 12/02/2019 VIDEO Telephone Encounter - Lana Knight LPN - 03/22/2020 2:09 PM CST The patient is due for a mammogram. The nurse is needing to know where they want it done at and when? VIDEO documented in this encounter Plan of Treatment Not on filedocumented as of this encounter Goals Goal Patient Goal Associated Recent Patient-Stated? Author Type Problems Progress Routine Health General No change No Domitila, Peter (02/05/2021 Abbie Murray 11:19 AM GM VIDEO) RN Note: Formatting of this note is differe nt from the original. Routine Health Management Care Team Patient Care Team: Corrine Vazquez MD as PCP - General ([facility]) Yossi Potts RN as Registered Nurse (Diabetes Education) Abbie Ramesh RN as Surgical First Assistant Future Scheduled Appointments No future appointments. Health Maintenance Health Maintenance Topic Date Due Urine Protein Screening 05/31/2020 Lipid Panel 09/05/2020 Glaucoma Screening 67+ Yr 12/25/2020 Ophthalmology Exam 12/25/2020 [facility] Annual Wellness 01/12/2021 Hemoglobin A1C 01/24/2021 Diabetic Foot Exam 03/16/2021 Colorectal Cancer Screening: Colonoscop y 05/21/2021 Fall Risk Performed 06/05/2021 Mammogram 12/03/2021 COVID-19 Vaccine Completed [facility] Pneumococcal Vaccine: <64 Completed [facility] Pneumococcal Vaccine: 65+ Years Com pleted HPV Vaccines Aged Out Notes: Due: Urine Protein screening Eye exam AWV A1C Lipid panel Diabetes Management General No change (02/05/2021 11:17 AM Abbie Monzon, RN GM VIDEO) Note: Formatting of this note is differe nt from the original. Diabetes Management Type 2 diabetes mellitus with other spec ified complication (HCC) Managed by (PCP or Endocrinology) Dr. Vazquez (PCP ) Home Glucose tracking 1-3 times per day Diabetic medications insulin glargine (B OSIRISGLMARIANELA JAVI) 100 UNIT/ML injection 22 units in AM [...] on filedocumented in this encounter Care Teams Loan Funder Relationship Specialty Start Date End Date Corrine Vazquez MD PCP - General Family Medicine 07/07/19 08/19/[address] [place] [address] documented as of this encounter
--- OUTSIDE RECORDS SUMMARY | 2021-10-24 10:40 | XMS_ITS | Encounter Summary ---
:1945 Author Organization [facility] Address [address] [place] [address] Care Team Providers Name Role Phone Corrine Vazquez MD Primary Care Provider Reason for Visit Reason Onset Date Comments Appointment 03/08/2020 Encounter Details Date Type Department Care Team Description 03/08/2020 Telephone [place] Corrine Vazquez MD [facility]ointment [address] [facility] [address] [place], [place] [address] [place], [place] [phone] (Wo rk) Social History Tobacco Use Types [...] More than 4 times per year 12/23/2018 mandaeism services? Do you belong to any clubs [...] CST Information printed and mailed to patient. DIPPER Telephone Encounter - Margareth Sanchez RN - 04/02/2020 10:32 AM CST Reviewed osteopenia in up to date, information not beneficial for this situation. Dr. Madsen, do you know how to look up education material within [employer] for osteopenia that we can print for this patient? DIPPER Telephone Encounter - Corrine Vazquez MD - 04/02/2020 10:10 AM CST Can you check with [facility] orthopedic department to see if they have any general pamphlets or information that can be sent to [facility] in regard to osteopi??a and osteoporosis. Or you could search up-to-date and come up with some information as well. Thanks DIPPER Telephone Encounter - Margareth Sanchez RN - 04/02/2020 8:06 AM CST Patient informed, she questions if you can send her some information on Osteopenia so she can learn more about it? DIPPER Telephone Encounter - Margareth Sanchez RN - 03/08/2020 1:38 PM CST FYI DIPPER Telephone Encounter - Luciana Albarado - 03/08/2020 12:14 PM CST Appt scheduled for 03/16/20 as requested. DIPPER Telephone Encounter - Margareth Sanchez RN - 03/08/2020 11:47 AM CST Patient is due for a mammogram and a diabetic recheck with foot exam and nonfasting labs. Please call patient to schedule. DIPPER documented in this encounter Plan of Treatment Not on filedocumented as of this encounter Goals Goal Patient Goal Associated Recent Patient-Stated? Author Type Problems Progress Routine Health General No change Peter Monzon (02/05/2021 Abbie Murray, 11:19 AM LAST DIPPER) RN Note: Formatting of this note is differe nt from the original. Routine Health Management Care Team Patient Care Team: Corrine Vazquez MD as PCP - General ([facility] Medicine) Yossi Potts, RN as Registered Nurse (Diabetes Education) Abbie Ramesh, ERA as Auto Body Repair Teacher Future Scheduled Appointments No future appointments. Health Maintenance Health Maintenance Topic Date Due Urine Protein Screening 05/31/2020 Lipid Panel 09/05/2020 Glaucoma Screening 67+ Yr 12/25/2020 Ophthalmology Exam 12/25/2020 [facility] [place] Wellness 01/12/2021 Hemoglobin A1C 01/24/2021 Diabetic Foot Exam 03/16/2021 Colorectal Cancer Screening: Colonoscop y 05/21/2021 Fall Risk Performed 06/05/2021 Mammogram 12/03/2021 COVID-19 Vaccine Completed [facility] Pneumococcal Vaccine: <64 Completed [facility] Pneumococcal Vaccine: 65+ Years Com pleted HPV Vaccines Aged Out Notes: Due: Urine Protein screening Eye exam AWV A1C Lipid panel Diabetes Management General No change (02/05/2021 11:17 AM Abbie Monzon, RN LAST DIPPER) Note: Formatting of this note is differe [...] on filedocumented in this encounter Care Teams Director Of Consumer Affairs Relationship Specialty Start Date End Date Corrine Vazquez MD PCP - General Family Medicine 07/07/19 08/19/[address] [place] [address] documented as of this encounter
--- OUTSIDE RECORDS SUMMARY | 2021-10-24 10:40 | XMS_ITS | Encounter Summary ---
:1945 Author Organization [facility] Address [address] [place] [address] Care Team Providers Name Role Phone Corrine Vazquez MD Primary Care Provider Reason for Visit Reason Comments Skin tags Encounter Details Date Type Department Care Team Description 10/08/2020 Office Visit [place] Corrine Vazquez Skin lesion (Primary Dx); [address] [place] Skin tag; [place], [place] [address] Asymptomatic varicose veins of both lower extremities [phone] [place] [address] Social History Tobacco Use Types Packs/Day Years [...] Peter Monzon (02/05/2021 Abbie Murray, 11:19 AM CARGO SURVEYOR) RN Note: Formatting of this note is differe nt from the original. Routine Health Management Care Team Patient Care Team: Corrine Vazquez MD as PCP - General ([facility] Medicine) Yossi Potts RN as Registered Nurse (Diabetes Education) Abbie Ramesh, ERA as Lockstitch Sleeve Maker Future Scheduled Appointments No future appointments. Health Maintenance Health Maintenance Topic Date Due Urine Protein Screening 05/31/2020 Lipid Panel 09/05/2020 Glaucoma Screening 67+ Yr 12/25/2020 Ophthalmology Exam 12/25/2020 [facility] Annual Wellness 01/12/2021 Hemoglobin A1C 01/24/2021 Diabetic Foot Exam 03/16/2021 Colorectal Cancer Screening: Colonoscop y 05/21/2021 Fall Risk Performed 06/05/2021 Mammogram 12/03/2021 COVID-19 Vaccine Completed [facility] Pneumococcal Vaccine: <64 Completed [facility] Pneumococcal Vaccine: 65+ Years Com pleted HPV Vaccines Aged Out Notes: Due: Urine Protein screening Eye exam AWV A1C Lipid panel Diabetes Management General No change (02/05/2021 11:17 AM Abbie Monzon, RN CARGO SURVEYOR) Note: Formatting of this note is differe [...] track (02/05/2021 Abbie Monzon RN 11:14 AM CARGO SURVEYOR) Note: Formatting of this note is differe [...] extremities documented in this encounter Care Teams Lay Brother Relationship Specialty Start Date End Date Corrine Vazquez MD PCP - General Family Medicine 07/07/19 08/19/[address] [place] [address] documented as of this encounter
--- OUTSIDE RECORDS SUMMARY | 2021-10-24 10:40 | XMS_ITS | Encounter Summary ---
:1945 Author Organization [facility] Address [address] [place] [address] Care Team Providers Name Role Phone Adriane Patel Ronak CHILLING HOOD OPERATOR, VICE PRESIDENT REGULATORY Primary Care Provider [phone] Encounter Details Date Type Department Care Team Description 07/27/2020 Telephone [place] Corrine Vazquez MD [address] [place], [place] [address] [place], [place] [phone] (Wo rk) Social History Tobacco Use Types [...] Domitila, Management (02/05/2021 Abbie Murray, 11:19 AM ANALYTICAL LABORATORY TECHNICIAN) RN Note: Formatting of this note is differe nt from the original. Routine Health Management Care Team Patient Care Team: Corrine Vazquez MD as PCP - General ([facility] Medicine) Yossi Potts, RN as Registered Nurse (Diabetes Education) Abbie Ramesh, RN as Night Shift Supervisor Future Scheduled Appointments No future appointments. [...] (02/05/2021 11:17 AM No Abbie Ramesh, RN ANALYTICAL LABORATORY TECHNICIAN) Note: Formatting of this note is [...] track (02/05/2021 Abbie Monzon RN 11:14 AM ANALYTICAL LABORATORY TECHNICIAN) Note: Formatting of this note is [...] on filedocumented in this encounter Care Teams Furniture Associate Relationship Specialty Start Date End Date Adriane Patel APRN, VICE PRESIDENT REGULATORY PCP - General Family Medicine 08/20/21 [address] [place] [address] documented as of this encounter
--- OUTSIDE RECORDS SUMMARY | 2021-10-24 10:40 | XMS_ITS | Encounter Summary ---
:1945 Author Organization [facility] Address [address] [place] [address] Care Team Providers Name Role Phone Corrine Vazquez MD Primary Care Provider Encounter Details Date Type Department Care Team Description 03/16/2020 Lab [place] Hypothyroidism, unspecified type; [address] Type 2 diabetes mellitus wit h other specified complication, without long-term current use of insulin (HCC); [place], [place] [address] Type 2 diabetes mellitus wit h other specified complication, with long-term current use of insulin (HCC); [phone] Stage 3 chronic kidney disease; Abnormal liver [...] or relatives? How often do you attend jehovah's witness or More than 4 times per year 12/23/2018 cheondoism services? Do you belong to any clubs or No 12/23/2018 organizations such as jehovah's witness groups, unions, fraternal or athletic groups, or [...] Ramesh, Peter (02/05/2021 Abbie Murray, 11:19 AM CHAIR INSPECTOR) RN Note: Formatting of this note is differe nt from the original. Routine Health Management Care Team Patient Care Team: Corrine Vazquez MD as PCP - General ([facility] Medicine) Yossi Potts RN as Registered Nurse (Diabetes Education) Abbie Ramesh RN as Cherry Pitter Future Scheduled Appointments No future appointments. Health [...] (02/05/2021 11:17 AM No Abbie Ramesh, RN CHAIR INSPECTOR) Note: Formatting of this note is [...] diabetes Results for this FILTRATION RATE AM CHAIR INSPECTOR mellitus with other proce dure are in specified the results complication, section. without long-term current use of insulin (HCC) CBC Routine 03/16/2020 10:17 Type 2 diabetes Results for this AM CHAIR INSPECTOR mellitus with other procedur e are in specified the results complication, with section. long-term current use of insulin ( HCC) Stage 3 chronic kidney disease Abnormal liver function test TSH Routine 03/16/2020 10:17 Hypothyroidism, Results for this AM CHAIR INSPECTOR unspecified type procedure a re in the results section. HEMOGLOBIN A1C Routine 03/16/2020 10:17 Type 2 diabetes Result s for this AM CHAIR INSPECTOR mellitus with other procedur e are in specified the results complication, section. without long-term current use of insulin (HCC) HEPATIC FUNCTION Routine 03/16/2020 10:17 Type 2 diabetes Resu lts for this PANEL AM CHAIR INSPECTOR mellitus with other procedur e are in specified the results complication, with section. long-term current use of insulin ( HCC) Mixed hyperlipid emia Abnormal liver function test BASIC METABOLIC Routine 03/16/2020 10:17 Type 2 diabetes Resul ts for this PANEL AM CHAIR INSPECTOR mellitus with other procedur e are in specified the results complication, section. without long-term current use of insulin (HCC) documented in this encounter Results (ABNORMAL) Glomerular filtration rate (GFR) (03/16/2020 10:17 AM CHAIR INSPECTOR) P athologist Signature GFR 44 (A) 03/16/2020 [facility] 6:25 PM [facility] 53 (A) 03/16/2020 [facility] O[place] GFR 6:25 PM CHAIR INSPECTOR CENTER LABORATORY Comment: GFR calculated from serum creatinine v alue Chronic Kidney Disease less than 60 mL/m in/1.73 m2 Kidney Failure less than 15 mL/min/1.73 m2 Note: effective 07/01/06 IDMS-Traceable MDRD Study Equation used. Specimen Anatomical Collection Method Collection Time Receive d Time (Source) Location / / Volume Laterality 03/16/2020 10:17 03/16/2020 AM CHAIR INSPECTOR 10:17 AM CHAIR INSPECTOR Corrine Vazquez MD LAB BLOOD ORDERABLES Performing Organization Address City/[facility]/ZIP Code Phon e Number [facility] [address] [place] [phone] Liver panel (03/16/2020 10:17 AM CHAIR INSPECTOR) P athologist Signature Total Protein 7.7 6.3 - 8.2 03/16/2020 [facility] g/dL 6:25 PM [facility] Albumin, Serum 4.2 3.5 - 5.0 03/16/2020 [facility] g/dL 6:25 PM [facility] Total Bilirubin <0.7 0.1 - 1.0 03/16/2020 [facility] mg/dL 6:25 PM [facility] Bilirubin, <0.1 0.0 - 0.3 03/16/2020 [facility] Direct mg/dL 6:25 PM [facility] AST 27 8 - 43 U/L 03/16/2020 [facility] 6:25 PM [facility] Alkaline 66 38 - 128 03/16/2020 [facility] Phosphatase U/L 6:25 PM [facility] ALT (SGPT) 21 0 - 34 U/L 03/16/2020 [facility] 6:25 PM [facility] Specimen Anatomical Collection Method Collection Time Receive d Time (Source) Location / / Volume Laterality Blood 03/16/2020 10:17 03/16/2020 5:59 AM CHAIR INSPECTOR PM CHAIR INSPECTOR Bacilio DELA CRUZ LAB BLOOD ORDERABLES Performing Organization Address City/[facility] Phon e Number [facility] [address] [place] [address] (ABNORMAL) CBC ([employer]) (03/16/2020 10:17 AM CHAIR INSPECTOR) P athologist Signature WBC 7.1 3.5 - 10.5 03/16/2020 [facility] K/uL 10:23 AM CHAIR INSPECTOR [place] RBC 3.91 3.90 - 5.00 03/16/2020 [facility] M/uL 10:23 AM CHAIR INSPECTOR [place] Hemoglobin 11.5 (L) 12.0 - 15.5 03/16/2020 [facility] g/dL 10:23 AM CHAIR INSPECTOR [place] Hematocrit 35.5 35.0 - 44.0 03/16/2020 [facility] % 10:23 AM CHAIR INSPECTOR [place] Platelets 199 150 - 450 03/16/2020 [facility] K/uL 10:23 AM CHAIR INSPECTOR [place] MCV 90.8 81.6 - 98.3 03/16/2020 [facility] fL 10:23 AM CHAIR INSPECTOR [place] MCH 29.4 26.0 - 32.0 03/16/2020 [facility] pg 10:23 AM CHAIR INSPECTOR [place] MCHC 32.4 32.0 - 36.0 03/16/2020 [facility] g/dL 10:23 AM CHAIR INSPECTOR [place] RDW 13.2 11.9 - 15.5 03/16/2020 [facility] % 10:23 AM CHAIR INSPECTOR [place] Specimen Anatomical Collection Method Collection Time Receive d Time (Source) Location / / Volume Laterality Blood 03/16/2020 10:17 03/16/2020 AM CHAIR INSPECTOR 10:21 AM [facility] Bacilio DELA CRUZ LAB BLOOD ORDERABLES Performing Organization Address City/State/ZIP Code Phon e Number [facility] [place] [address] [place] [address] (ABNORMAL) Hemoglobin A1c (03/16/2020 10:17 AM CHAIR INSPECTOR) Analysis Performed At Patho logist Time Signature Hemoglobin A1C 8.5 (H) 4.0 - 5.6 03/16/2020 [facility] % A1C 6:26 PM [facility] Comment: Reference Range [...] Laterality Blood 03/16/2020 10:17 03/16/2020 5:59 AM CHAIR INSPECTOR PM CHAIR INSPECTOR Corrine Vazquez MD LAB BLOOD ORDERABLES Performing Organization Address City/[facility] Phon e Number [facility] [address] [place] [address] (ABNORMAL) Basic metabolic panel (03/16/2020 10:17 AM CHAIR INSPECTOR) Analysis Performed At Patho logist Time Signature Sodium 138 135 - 145 03/16/2020 [facility] mEq/L 6:25 PM [facility] Potassium 4.1 3.5 - 5.1 03/16/2020 [facility] mEq/L 6:25 PM [facility] Chloride 104 98 - 107 03/16/2020 [facility] mEq/L 6:25 PM [facility] CO2 26 22 - 29 03/16/2020 [facility] mmol/L 6:25 PM [facility] Creatinine 1.2 0.4 - 1.2 03/16/2020 [facility] mg/dL 6:25 PM [facility] BUN 27 (H) 5 - 25 03/16/2020 [facility] mg/dL 6:25 PM [facility] Glucose 154 (H) 70 - 100 03/16/2020 [facility] mg/dL 6:25 PM [facility] Calcium, 10.1 8.4 - 10.2 03/16/2020 [facility] Total,S mg/dL 6:25 PM [facility] Fasting? No 03/16/2020 [facility] 10:21 AM [facility] [place] Specimen Anatomical Collection Method Collection Time Receive d Time (Source) Location / / Volume Laterality Blood 03/16/2020 10:17 03/16/2020 5:59 AM CHAIR INSPECTOR PM CHAIR INSPECTOR Corrine Vazquez MD LAB BLOOD ORDERABLES Performing Organization Address City/[facility]/ZIP Code Phon e Number [facility]ERRE [address] [place] [address] [facility] [address] [place] [address] LABORATORY TSH (03/16/2020 10:17 AM CHAIR INSPECTOR) P athologist Signature TSH, Sensitive 1.59 0.46 - 03/16/2020 [facility] MEDICA L 4.68 mIU/L 6:59 PM CHAIR INSPECTOR CENTER LABORATORY Comment: The results from this [...] Laterality Blood 03/16/2020 10:17 03/16/2020 5:59 AM CHAIR INSPECTOR PM CHAIR INSPECTOR D. Lincoln Vazquez MD LAB BLOOD ORDERABLES Performing Organization Address City/State/ZIP Code Phon e Number [facility] [address] [place] [phone] documented in this encounter Visit Diagnoses Diagnosis [...] hyperlipidemia documented in this encounter Care Teams Community Arts Worker Relationship Specialty Start Date End Date Corrine Vazquez MD PCP - General Family Medicine 07/07/19 08/19/[address] [place] [address] documented as of this encounter
--- OUTSIDE RECORDS SUMMARY | 2021-10-24 10:40 | XMS_ITS | Encounter Summary ---
:1945 Author Organization [facility] Address [address] [place] [address] Care Team Providers Name Role Phone Corrine Vazquez MD Primary Care Provider Reason for Visit Consultation (Routine) - Closed Specialty Diagnoses / Procedures Referred By Contact Refer red To Contact Family Medicine Diagnoses Enrolled in chronic care management Essential hypertension Type 2 diabetes mellitus with other specified complication, with long-term current use of insulin (HCC) Mixed hyperlipidemia Corrine Vazquez MD Care Coordination [address] [place] [address] [address] [place], [place] [phone] Referral ID Status Reason Start Date Expiration Date Visits V isits Requested Authorized [id number] Closed Specialty 02/21/2020 03/18/2021 99 99 Services Required Encounter Details Date Type Department Care Team Description 05/24/2020 Patient Outreach SE Care Abbie Ramesh and coordination of care (Primary Dx); Coordination Terri, RN Type 2 diabetes mellitus with other spec ified complication, with long-term current use of insulin (HCC); [address] [place] [address] [address] Essential hypertension; [place], [place] [id number] [place] [address] Mixed hyperlipidemia [phone] [place] [phone] Social History Tobacco Use Types Packs/Day Years [...] [facility]) Dr. Vazquez Last: 03/16/20 Due: Blood [...] Nurse (Diabetes Education) Abbie Ramesh, RN as Principal Product Manager Future Scheduled Appointments No future appointments. [...] Out Notes: Eye exam due Covid Vaccine [facility] 2 05/15. Abbie Ramesh RN - 05/24/2020 1:00 PM CDT Care Plan - Care Coordination Contact Date: 05/30/2020 4:04 PM Date: AM Noon PM Bedtime Comments* 05/16 123 *ice cream before bed 05/17 109 / 123 05/19 95 201 05/20 84 163 4/5 120 6 88 05/23 98 05/24 70 183 05/25 [...] Peter Monzon (02/05/2021 Abbie Murray, 11:19 AM OUTPLACEMENT CONSULTANT) RN Note: Formatting of this note is differe nt from the original. Routine Health Management Care Team Patient Care Team: Corrine Vazquez MD as PCP - General ([facility] Medicine) Yossi Potts, ERA as Registered Nurse (Diabetes Education) Abbie Ramesh RN as Principal Product Manager Future Scheduled Appointments No future appointments. Health Maintenance Health Maintenance Topic Date Due Urine Protein Screening 05/31/2020 Lipid Panel 09/05/2020 Glaucoma Screening 67+ Yr 12/25/2020 Ophthalmology Exam 12/25/2020 [facility] Annual Wellness 01/12/2021 Hemoglobin A1C 01/24/2021 Diabetic Foot Exam 03/16/2021 Colorectal Cancer Screening: Colonoscop y 05/21/2021 Fall Risk Performed 06/05/2021 Mammogram 12/03/2021 COVID-[address] [facility] Pneumococcal Vaccine: <[address] [facility] Pneumococcal Vaccine: 65+ Years Com pleted HPV Vaccines Aged Out Notes: Due: Urine Protein screening Eye exam AWV A1C Lipid panel Diabetes Management General No change (02/05/2021 11:17 AM Abbie Monzon, RN OUTPLACEMENT CONSULTANT) Note: Formatting of this note is [...] (02/05/2021 No Abbie Ramesh, RN 11:14 AM OUTPLACEMENT CONSULTANT) Note: Formatting of this note is differe nt from the original. Cardiovascular Management Essential hypertension Chronic coronary artery disease Managed by (PCP; Cardiology; [facility]) Dr. Ronak lozoya MD (PCP)/Dr. Tena [...] hyperlipidemia documented in this encounter Care Teams Jewel Sawyer Relationship Specialty Start Date End Date Corrine Vazquez MD PCP - General Family Medicine 07/07/19 08/19/[address] [place] [address] documented as of this encounter
--- OUTSIDE RECORDS SUMMARY | 2021-10-24 10:40 | XMS_ITS | Encounter Summary ---
:1945 Author Organization [facility] Address [address] [place] [address] Care Team Providers Name Role Phone Corrine Vazquez MD Primary Care Provider Reason for Visit Consultation (Routine) - Closed Specialty Diagnoses / Procedures Referred By Contact Refer red To Contact Family Medicine Diagnoses Enrolled in chronic care management Essential hypertension Type 2 diabetes mellitus with other specified complication, with long-term current use of insulin (HCC) Mixed hyperlipidemia Corrine Vazquez MD Care Coordination [address] [place] [address] [address] [place], [place] [phone] Referral ID Status Reason Start Date Expiration Date Visits V isits Requested Authorized [id number] Closed Specialty 02/21/2020 03/18/2021 99 99 Services Required Encounter Details Date Type Department Care Team Description 11/02/2020 Patient Outreach SE Care Coordination Abbie Ramesh Counseling and coordination of care (Primary Dx); [address] [place] [address] Terri RN Type 2 diabetes mellitus with other spec ified complication, with long-term current use of insulin (HCC); [place] [address] [address] [facility] Essential hypertension [phone] [place] [address] Social History Tobacco Use Types [...] 12/23/2018 organizations such as buddhism groups, unions, fraAlta [employer] or athletic groups, or school groups? [...] Managed by (PCP; Cardiology; [facility]) Dr. Taylor MD (PCP)/Dr. Tena MD [...] Nurse (Diabetes Education) Abbie Ramesh RN as Adult School Counselor Future Scheduled Appointments No future appointments. Health Maintenance Health Maintenance Topic Date Due ??? Urine Protein Screening 05/31/2020 ??? COVID-19 Vaccine (3 - Pfizer risk 3-dose series) 06/12/2020 ??? Lipid Panel 09/05/2020 ??? Hemoglobin A1C 10/25/2020 ??? Mammogram 12/01/2020 ??? Colorectal Cancer Screening: Colonoscopy 05/21/2021 ??? Glaucoma Screening 67+ Yr 12/25/2020 ??? Ophthalmology Exam 12/25/2020 ??? [facility] Annual Wellness 01/12/2021 ??? Diabetic Foot Exam 03/16/2021 ??? Fall Risk Performed 06/05/2021 ? ? [facility] Pneumococcal Vaccine: <64 Completed ??? [facility] Pneumococcal Vaccine: 65+ Years Completed ??? HPV Vaccines Aged Out Notes: ??? Urine Protein screening due documented in this encounter Plan of Treatment Not on filedocumented as of this encounter Goals Goal Patient Goal Associated Recent Patient-Stated? Author Type Problems Progress Routine Health General No change No Domitila, Management (02/05/2021 Abbie Murray, 11:19 AM DINKEY ENGINE MECHANIC) RN Note: Formatting of this note is differe nt from the original. Routine Health Management Care Team Patient Care Team: Corrine Vazquez MD as [facility] - [facility] Yossi Potts RN as Registered Nurse (Diabetes Education) Abbie Ramesh RN as Adult School Counselor Future Scheduled Appointments No future appointments. [...] [facility] Pneumococcal Vaccine: <64 Completed [facility] Pneumococcal Vaccine: 65+ Years Com pleted HPV Vaccines Aged Out Notes: Due: Urine Protein screening Eye exam AWV A1C Lipid panel Diabetes Management General No change (02/05/2021 11:17 AM No Abbie Ramesh, RN DINKEY ENGINE MECHANIC) Note: Formatting of this note is [...] (02/05/2021 No Abbie Ramesh RN 11:14 AM DINKEY ENGINE MECHANIC) Note: Formatting of this note is [...] hypertension documented in this encounter Care Teams Public Health Sanitarian Relationship Specialty Start Date End Date Corrine Vazquez MD PCP - General Family Medicine 07/07/19 08/19/[address] [place] [address] documented as of this encounter
--- OUTSIDE RECORDS SUMMARY | 2021-10-24 10:40 | XMS_ITS | Encounter Summary ---
:1945 Author Organization [facility] Address [address] [place] [address] Care Team Providers Name Role Phone Corrine Vazquez MD Primary Care Provider Reason for Referral Consultation (Routine) - Closed Specialty Diagnoses / Procedures Referred By Contact Refer red To Contact Family Medicine Diagnoses Enrolled in chronic care management Essential hypertension Type 2 diabetes mellitus with other specified complication, with long-term current use of insulin (HCC) Mixed hyperlipidemia Corrine Vazquez MD Care Coordination [address] [place] [address] [place], [place] [phone] Referral ID Status Reason Start Date Expiration Date Visits V isits Requested Authorized [id number] Closed Specialty 02/21/2020 03/18/2021 99 99 Services Required Scheduling Instructions Staff from this department will contact the patient to schedule an appointment. ESS AREA SUPERVISOR Encounter Details Date Type Department Care Team Description 02/23/2020 Orders Only SE Care Coordination Corrine Vazquez Enrolled in chronic care man agement (Primary Dx); [address] [place] [address] MD [place] Essential hypertension; [place] [address] Type 2 diabetes mellitus wit h other specified complication, with long-term current use of insulin (HCC); [phone] [place] [address] Social History Tobacco Use Types Packs/Day Years [...] Name Type Priority Associated Diagnoses Order [facility] Ambulatory referral Outpatient Routine Enrolled in chronic [...] Domitila Management (02/05/2021 Abbie Murray, 11:19 AM PROCESS AREA SUPERVISOR) RN Note: Formatting of this note is differe nt from the original. Routine Health Management Care Team Patient Care Team: Corrine Vazquez MD as PCP - General ([facility]) Yossi Potts, RN as Registered Nurse (Diabetes Education) Abbie Ramesh, RN as Camp Director Future Scheduled Appointments No future appointments. Health Maintenance Health Maintenance Topic Date Due Urine Protein Screening 05/31/2020 Lipid Panel 09/05/2020 Glaucoma Screening 67+ Yr 12/25/2020 Ophthalmology Exam 12/25/2020 [facility] Annual Wellness 01/12/2021 Hemoglobin A1C 01/24/2021 Diabetic Foot Exam 03/16/2021 Colorectal Cancer Screening: Colonoscop y 05/21/2021 Fall Risk Performed 06/05/2021 Mammogram 12/03/2021 COVID-19 Vaccine Completed [facility] Pneumococcal Vaccine: <64 Completed [facility] Pneumococcal Vaccine: 65+ Years Com pleted HPV Vaccines Aged Out Notes: Due: Urine Protein screening Eye exam AWV A1C Lipid panel Diabetes Management General No change (02/05/2021 11:17 AM No Abbie Ramesh, RN PROCESS AREA SUPERVISOR) Note: Formatting of this note is [...] hyperlipidemia documented in this encounter Care Teams Order Processing Specialist Relationship Specialty Start Date End Date Corrine Vazquez MD PCP - General Family Medicine 07/07/19 08/19/[address] [place] [address] documented as of this encounter
--- OUTSIDE RECORDS SUMMARY | 2021-10-24 10:40 | XMS_ITS | Encounter Summary ---
:1945 Author Organization [facility] Address [address] [place] [address] Care Team Providers Name Role Phone Corrine Vazquez MD Primary Care Provider Reason for Visit Reason Comments Leg Pain with touch on left calf x 2- 3 days Encounter Details Date Type Department Care Team Description 02/21/2020 Office Visit [place] Antonio Madsen., Phlebitis and thombophlb of superfic vessels of low extrem (Primary Dx); [address] Systolic murmur [place], [place] [address] [place] [address] [place], [place] [phone] Social History Tobacco Use Types Packs/Day Years [...] Comments Blood Pressure 134/72 02/21/2020 1:59 PM CARD CUTTER HELPER Pulse 76 02/21/2020 1:59 PM CARD CUTTER HELPER Temperature 36.8 ??C (98.3 ??F) 02/21/2020 1:59 PM CARD CUTTER HELPER Respiratory Rate 16 02/21/2020 1:59 PM CARD CUTTER HELPER Oxygen Saturation - - Inhaled Oxygen Concentration - - Weight 82.7 kg (182 lb 6.4 oz) 02/21/2020 1:59 PM CARD CUTTER HELPER Height - - Body Mass Index 32.2 01/13/2020 2:24 PM CARD CUTTER HELPER documented in this encounter Patient Instructions Patient [...] these instructions at home: Medicines ?? Take [id number] and prescription medicines only as told by [...] 07/29/2017 Document Revised: 07/29/2017 Document Reviewed: 07/29/2017 [employer] Patient Education ?? 2020 [employer]. CUTTER HELPER documented in this encounter Progress Notes Antonio [...] these instructions at home: Medicines ?? Take [id number] and prescription medicines only as told by [...] 07/29/2017 Document Revised: 07/29/2017 Document Reviewed: 07/29/2017 [employer] Patient Education ?? 2020 [employer]. Return if symptoms worsen or fail to improve. Note created using voice dictation software. CUTTER HELPER documented in this encounter Plan of Treatment Not on filedocumented as of this encounter Goals Goal Patient Goal Associated Recent Patient-Stated? Author Type Problems Progress Routine Health General No change Peter Monzon (02/05/2021 Abbie Murray, 11:19 AM CARD CUTTER HELPER) RN Note: Formatting of this note is differe nt from the original. Routine Health Management Care Team Patient Care Team: Corrine Vazquez MD as PCP - General ([facility]) Yossi Potts, ERA as Registered Nurse (Diabetes Education) Abbie Ramesh RN as Aviation Metalsmith Future Scheduled Appointments No future appointments. Health [...] (02/05/2021 11:17 AM No Abbie Ramesh, RN CARD CUTTER HELPER) Note: Formatting of this note is [...] murmurs documented in this encounter Care Teams Rubber Heel And Sole Press Tender Relationship Specialty Start Date End Date Corrine Vazquez MD PCP - General Family Medicine 07/07/19 08/19/[address] [place] [address] documented as of this encounter
--- OUTSIDE RECORDS SUMMARY | 2021-10-24 10:40 | XMS_ITS | Encounter Summary ---
:1945 Author Organization [facility] Address [address] [place] [address] Care Team Providers Name Role Phone Corrine Vazquez MD Primary Care Provider Reason for Visit Consultation (Routine) - Closed Specialty Diagnoses / Procedures Referred By Contact Refer red To Contact Family Medicine Diagnoses Enrolled in chronic care management Essential hypertension Type 2 diabetes mellitus with other specified complication, with long-term current use of insulin (HCC) Mixed hyperlipidemia Corrine Vazquez MD Care Coordination [address] [place] [address] [address] [place], [place] [phone] Referral ID Status Reason Start Date Expiration Date Visits V isits Requested Authorized [id number] Closed Specialty 02/21/2020 03/18/2021 99 99 Services Required Encounter Details Date Type Department Care Team Description 03/23/2020 Patient Outreach SE Care Coordination Abbie Ramesh Counseling and coordination of care (Primary Dx); [address] [place] [address] ERA Murray Essential hypertension; [place] [address] [address] Type 2 diabetes mellitus wit h other specified complication, with long-term current use of insulin (HCC) [phone] [place] [address] Social History Tobacco Use Types [...] 12/23/2018 organizations such as denominational groups, unions, [email or web address] or athletic groups, or school groups? How [...] is first attempt to call this month. NESS MANAGER Angie Bynum RN - 03/23/2020 2:40 PM CST Pt left her name phone number and on CCM VM. No other. Information. NESS MANAGER Abbie Ramesh RN - 03/23/2020 2:40 PM [...] [facility]) Dr. Vazquez Last: 03/16/20 Due: Blood [...] Nurse (Diabetes Education) Abbie Ramesh RN as Multicut Line Operator Future Scheduled Appointments No future appointments. Health Maintenance Health Maintenance Topic Date Due ??? Glaucoma Screening 67+ Yr 12/18/2019 ??? Urine Protein Screening 05/31/2020 ??? Hemoglobin A1C 06/14/2020 ??? Lipid Panel 09/05/2020 ??? Mammogram 12/01/2020 ??? Ophthalmology Exam 12/25/2020 ??? Fall Risk Performed 01/12/2021 ??? [facility] Annual Wellness 01/12/2021 ??? Diabetic Foot Exam 03/16/2021 ??? Colorectal Cancer Screening: Colonoscopy 05/21/2021 ??? [facility] Pneumococcal Vaccine: 65+ Years Completed ? ? [facility] Pneumococcal Vaccine: <64 Aged Out ??? HPV Vaccines Aged Out Notes: Eye exam due 1 Progress evaluated against: Health Maintenance NESS MANAGER Corrine Vazquez MD - 03/23/2020 2:40 PM CST Call Luclemencia and let her know that it is okay for her to just start taking the 5 mg tablets once a day at this time. If it is hard to cut them into she can dispense with this part of the instructions. NESS MANAGER Margareth Sanchez RN - 03/23/2020 2:40 PM CST Patient informed. NESS MANAGER documented in this encounter Plan of Treatment Not on filedocumented as of this encounter Goals Goal Patient Goal Associated Recent Patient-Stated? Author Type Problems Progress Routine Health General No change No Domitila, Management (02/05/2021 Abbie Murray, 11:19 AM BUSINESS MANAGER) RN Note: Formatting of this note is differe nt from the original. Routine Health Management Care Team Patient Care Team: Corrine Vazquez MD as PCP - General ([facility] Medicine) Yossi Potts, RN as Registered Nurse (Diabetes Education) Abbie Ramesh, ERA as Multicut Line Operator Future Scheduled Appointments No future appointments. Health Maintenance Health Maintenance Topic Date Due Urine Protein Screening 05/31/2020 Lipid Panel 09/05/2020 Glaucoma Screening 67+ Yr 12/25/2020 Ophthalmology Exam 12/25/2020 [facility] Annual Wellness 01/12/2021 Hemoglobin A1C 01/24/2021 Diabetic Foot Exam 03/16/2021 Colorectal Cancer Screening: Colonoscop y 05/21/2021 Fall Risk Performed 06/05/2021 Mammogram 12/03/2021 COVID-19 Vaccine Completed [facility] Pneumococcal Vaccine: <64 Completed [facility] Pneumococcal Vaccine: 65+ Years Com pleted HPV Vaccines Aged Out Notes: Due: Urine Protein screening Eye exam AWV A1C Lipid panel Diabetes Management General No change (02/05/2021 11:17 AM No Abbie Ramesh, RN BUSINESS MANAGER) Note: Formatting of this note is [...] track (02/05/2021 Abbie Monzon RN 11:14 AM BUSINESS MANAGER) Note: Formatting of this note is [...] (HCC) documented in this encounter Care Teams Dispatcher Maintenance Relationship Specialty Start Date End Date Corrine Vazquez MD PCP - General Family Medicine 07/07/19 08/19/[address] [place] [address] documented as of this encounter
--- OUTSIDE RECORDS SUMMARY | 2021-10-24 10:40 | XMS_ITS | Encounter Summary ---
:1945 Author Organization [facility] Address [address] [place] [address] Care Team Providers Name Role Phone Corrine Vazquez MD Primary Care Provider Encounter Details Date Type Department Care Team Description 08/30/2020 Refill [place] Corrine Vazquez, Type 2 diabetes mellitus [address] MD with other specified [place], [place] [address] [address] [facility], without [phone] [place] [id number] insulin ([facility]) Social History Tobacco Use Types [...] More than 4 times per year 12/23/2018 christianity services? Do you belong to any clubs [...] Domitila, Management (02/05/2021 Abbie Murray, 11:19 AM MANUFACTURER REPRESENTATIVE) RN Note: Formatting of this note is differe nt from the original. Routine Health Management Care Team Patient Care Team: Corrine Vazquez MD as PCP - General ([facility] Medicine) Yossi Potts, RN as Registered Nurse (Diabetes Education) Abbie Ramesh RN as Fitness And Wellness Coordinator Future Scheduled Appointments No future appointments. Health Maintenance Health Maintenance Topic Date Due Urine Protein Screening 05/31/2020 Lipid Panel 09/05/2020 Glaucoma Screening 67+ Yr 12/25/2020 Ophthalmology Exam 12/25/2020 [facility] Annual Wellness 01/12/2021 Hemoglobin A1C 01/24/2021 Diabetic Foot Exam 03/16/2021 Colorectal Cancer Screening: Colonoscop y 05/21/2021 Fall Risk Performed 06/05/2021 Mammogram 12/03/2021 COVID-19 Vaccine Completed [facility] Pneumococcal Vaccine: <64 Completed [facility] Pneumococcal Vaccine: 65+ Years Com pleted HPV Vaccines Aged Out Notes: Due: Urine Protein screening Eye exam AWV A1C Lipid panel Diabetes Management General No change (02/05/2021 11:17 AM No Abbie Ramesh, RN MANUFACTURER REPRESENTATIVE) Note: Formatting of this note is differe [...] (02/05/2021 No Abbie Ramesh RN 11:14 AM MANUFACTURER REPRESENTATIVE) Note: Formatting of this note is differe [...] documented in this encounter Care Teams Supervisor Pig Machine Relationship Specialty Start Date End Date Corrine Vazquez MD PCP - General Family Medicine 07/07/19 08/19/[address] [place] [address] documented as of this encounter
--- OUTSIDE RECORDS SUMMARY | 2021-10-24 10:40 | XMS_ITS | Encounter Summary ---
:1945 Author Organization [facility] Address [address] [place] [address] Care Team Providers Name Role Phone Corrine Vazquez MD Primary Care Provider Reason for Visit Reason Comments Follow-up lab results Encounter Details Date Type Department Care Team Description 06/19/2020 Office Visit Chuckie Pierre Antonio Madsen., Type 2 diabetes mellitus wit h other specified complication, with long-term current use of insulin (HCC) (Primary Dx); [address] [facility] Stage 3 chronic kidney disease, unspecif ied whether stage 3a or 3b CKD [place], [place] [address] [address] [place], [place] [phone] [address] Social History Tobacco Use Types Packs/Day Years [...] very sensitive to changes in her glucose. Her A1c today is basically unchanged from 3 months ago. She is taking metformin 1000 mg daily which is appropriate given her kidney function so I adjusted that Rx signature. I recommended that we consider stopping the glipizide and switching to a mealtime insulin in addition to her basal insulin. Recommended follow up with her reconciliation accountant about this. Terms of her other symptoms [...] Domitila, Management (02/05/2021 Abbie Murray 11:19 AM TELETYPE MECHANIC) RN Note: Formatting of this note is differe nt from the original. Routine Health Management Care Team Patient Care Team: Corrine Vazquez MD as PCP - General ([facility]) Yossi Potts RN as Registered Nurse (Diabetes Education) Abbie Ramesh, RN as Photographic Technician Future Scheduled Appointments No future appointments. Health Maintenance Health Maintenance Topic Date Due Urine Protein Screening 05/31/2020 Lipid Panel 09/05/2020 Glaucoma Screening 67+ Yr 12/25/2020 Ophthalmology Exam 12/25/2020 [facility] Annual Wellness 01/12/2021 Hemoglobin A1C 01/24/2021 Diabetic Foot Exam 03/16/2021 Colorectal Cancer Screening: Colonoscop y 05/21/2021 Fall Risk Performed 06/05/2021 Mammogram 12/03/2021 COVID-19 Vaccine Completed [facility] Pneumococcal Vaccine: <64 Completed [facility] Pneumococcal Vaccine: 65+ Years Com pleted HPV Vaccines Aged Out Notes: Due: Urine Protein screening Eye exam AWV A1C Lipid panel Diabetes Management General No change (02/05/2021 11:17 AM Abbie Monzon, RN TELETYPE MECHANIC) Note: Formatting of this note is [...] track (02/05/2021 Abbie Monzon RN 11:14 AM TELETYPE MECHANIC) Note: Formatting of this note is [...] documented in this encounter Care Teams Tobacco Scrap Sifter Relationship Specialty Start Date End Date Corrine Vazquez MD PCP - General Family Medicine 07/07/19 08/19/[address] [place] [address] documented as of this encounter
--- OUTSIDE RECORDS SUMMARY | 2021-10-24 10:41 | XMS_ITS | Encounter Summary ---
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 Routine Health Management Care Team Patient Care Team: Corrine Vazquez MD as PCP - General ([facility] Medicine) Yossi Potts, ERA as Registered Nurse (Diabetes Education) Abbie Ramesh, RN as Yard Spotter Future Scheduled Appointments No future appointments. Health Maintenance Health Maintenance Topic Date Due Urine Protein Screening 05/31/2020 Lipid Panel 09/05/2020 Glaucoma Screening 67+ Yr 12/25/2020 Ophthalmology Exam 12/25/2020 [facility] Annual Wellness 01/12/2021 Hemoglobin A1C 01/24/2021 Diabetic Foot Exam 03/16/2021 Colorectal Cancer Screening: Colonoscop y 05/21/2021 Fall Risk Performed 06/05/2021 Mammogram 12/03/2021 COVID-19 Vaccine Completed [facility] Pneumococcal Vaccine: <64 Completed [facility] Pneumococcal Vaccine: 65+ Years Com pleted HPV Vaccines Aged Out Notes: Due: Urine Protein screening Eye exam AWV A1C Lipid panel Diabetes Management General No change (02/05/2021 11:17 AM No Abbie Ramesh, RN MATERNAL CHILD NURSE) Note: Formatting of this note is [...] Seropositive Re sults for this RATE AM MATERNAL CHILD NURSE rheumatoid arthritis procedu re are in of multiple sites the result s (HCC) section. Encounter for long-term (current) use of medicatio ns Vitamin D deficiency, unspecified VITAMIN D, TOTAL Routine 01/25/2020 10:35 Seropositive Results for this AM MATERNAL CHILD NURSE rheumatoid arthritis procedu re are in of multiple sites the result s (HCC) section. Encounter for long-term (current) use of medicatio ns Vitamin D deficiency, unspecified CBC BRANCH OFFICE Routine 01/25/2020 10:35 Seropositive Result s for this W/DIFF AM MATERNAL CHILD NURSE rheumatoid arthritis procedu re are in of multiple sites the result s (HCC) section. Encounter for long-term (current) use of medicatio ns Vitamin D deficiency, unspecified CREATININE, SERUM Routine 01/25/2020 10:35 Seropositive Result s for this AM MATERNAL CHILD NURSE rheumatoid arthritis procedu re are in of multiple sites the result s (HCC) section. Encounter for long-term (current) use of medicatio ns Vitamin D deficiency, unspecified SEDIMENTATION RATE, Routine 01/25/2020 10:35 Seropositive Resu lts for this AUTOMATED AM MATERNAL CHILD NURSE rheumatoid arthritis procedu re are in of multiple sites the result s (HCC) section. Encounter for long-term (current) use of medicatio ns Vitamin D deficiency, unspecified C-REACTIVE PROTEIN Routine 01/25/2020 10:35 Seropositive Resul ts for this AM MATERNAL CHILD NURSE rheumatoid arthritis procedu re are in of multiple sites the result s (HCC) section. Encounter for long-term (current) use of medicatio ns Vitamin D deficiency, unspecified ALT Routine 01/25/2020 10:35 Seropositive Results for this AM MATERNAL CHILD NURSE rheumatoid arthritis procedu re are in of multiple sites the result s (HCC) section. Encounter for long-term (current) use of medicatio ns Vitamin D deficiency, unspecified AST Routine 01/25/2020 10:35 Seropositive Results for this AM MATERNAL CHILD NURSE rheumatoid arthritis procedu re are in of multiple sites the result s (HCC) section. Encounter for long-term (current) use of medicatio ns Vitamin D deficiency, unspecified CALCIUM Routine 01/25/2020 10:35 Seropositive Results for this AM MATERNAL CHILD NURSE rheumatoid arthritis procedu re are in of multiple sites the result s (HCC) section. Encounter for long-term (current) use of medicatio ns Vitamin D deficiency, unspecified ALBUMIN Routine 01/25/2020 10:35 Seropositive Results for this AM MATERNAL CHILD NURSE rheumatoid arthritis procedu re are in of multiple sites the result s (HCC) section. Encounter for long-term (current) use of medicatio ns Vitamin D deficiency, unspecified documented in this encounter Results (ABNORMAL) Glomerular filtration rate (GFR) (01/25/2020 10:35 AM MATERNAL CHILD NURSE) athologist Signature GFR 40 (A) 01/26/2020 [facility] 2:05 PM [facility] 48 (A) 01/26/2020 [facility] Danish GFR 2:05 PM [facility] Comment: GFR calculated from serum creatinine v alue Chronic Kidney Disease less than 60 mL/m in/1.73 m2 Kidney Failure less than 15 mL/min/1.73 m2 Note: effective 07/01/06 IDMS-Traceable MDRD Study Equation used. Specimen Anatomical Collection Method Collection Time Receive d Time (Source) Location / / Volume Laterality 01/25/2020 10:35 01/25/2020 AM MATERNAL CHILD NURSE 10:35 AM MATERNAL CHILD NURSE Outside Referring Lab Provider LAB BLOOD ORDERABLES Performing Organization Address City/[facility]/ZIP Code Phon e Number [facility] [address] [place] [phone] (ABNORMAL) ESR-Sed rate (01/25/2020 10:35 AM MATERNAL CHILD NURSE) athologist Signature Sed Rate 67 (H) 0 - 29 01/26/2020 [facility] mm/hr 1:43 PM [facility] Specimen Anatomical Collection Method Collection Time Receive d Time (Source) Location / / Volume Laterality Blood (Blood, 01/25/2020 10:35 01/26/2020 1:01 Venous) AM MATERNAL CHILD NURSE PM MATERNAL CHILD NURSE Outside Referring Lab Provider LAB BLOOD ORDERABLES Performing Organization Address City/[facility]/ZIP Code Phon e Number [facility] [address] [place] [phone] (ABNORMAL) CBC Branch Off w/Diff (01/25/2020 10:35 AM MATERNAL CHILD NURSE) [facility] gist Method Time Signature WBC 6.3 3.5 - 10.5 01/25/2020 [facility] K/uL 12:11 PM MATERNAL CHILD NURSE [facility]ALLS RBC 3.84 (L) 3.90 - 01/25/2020 [facility] 5.00 M/uL 12:11 PM MATERNAL CHILD NURSE [facility]ALLS Hemoglobin 11.3 (L) 12.0 - 01/25/2020 [facility] 15.5 g/dL 12:11 PM MATERNAL CHILD NURSE [facility]ALLS Hematocrit 35.0 35.0 - 01/25/2020 [facility] 44.0 % 12:11 PM MATERNAL CHILD NURSE [facility]ALLS Platelets 181 150 - 450 01/25/2020 [facility] K/uL 12:11 PM MATERNAL CHILD NURSE [facility]ALLS MCV 91.1 81.6 - 01/25/2020 [facility] 98.3 fL 12:11 PM MATERNAL CHILD NURSE [facility]ALLS MCH 29.4 26.0 - 01/25/2020 [facility] 32.0 pg 12:11 PM MATERNAL CHILD NURSE [facility]ALL[facility] MCHC 32.3 32.0 - 01/25/2020 [facility] 36.0 g/dL 12:11 PM MATERNAL CHILD NURSE [facility] RDW 13.3 11.9 - 01/25/2020 [facility] 15.5 % 12:11 PM MATERNAL CHILD NURSE [facility]ALLS Lymphocytes % 18.3 % 01/25/2020 [facility] 12:11 PM MATERNAL CHILD NURSE [facility]S Mid-size Cells 9.5 % 01/25/2020 [facility] 12:11 PM MATERNAL CHILD NURSE [facility]ALLS Granulocytes/Jean Claude 72.2 % 01/25/2020 [facility] trophils 12:11 PM MATERNAL CHILD NURSE [facility]ALLS Lymphocytes 1.2 0.9 - 2.9 01/25/2020 [facility] Absolute K/uL 12:11 PM MATERNAL CHILD NURSE [facility] MIDS Absolute 0.6 0.4 - 1.5 01/25/2020 [facility] K/uL 12:11 PM MATERNAL CHILD NURSE [facility]ALLS Granulocytes/Jean Claude 4.5 1.7 - 7.0 01/25/2020 [facility] trophils K/uL 12:11 PM MATERNAL CHILD NURSE [facility]ALL[facility] Absolute Specimen Anatomical Collection Method Collection Time Receive d Time (Source) Location / / Volume Laterality Blood (Blood, 01/25/2020 10:35 01/25/2020 Venous) AM MATERNAL CHILD NURSE 10:35 AM MATERNAL CHILD NURSE Outside Referring Lab Provider LAB BLOOD ORDERABLES Performing Organization Address City/[facility]/ZIP Code Phon e Number [facility] JAMES PIERRE [address] [place] [address] Albumin (01/25/2020 10:35 AM MATERNAL CHILD NURSE) athologist Signature Albumin, Serum 4.0 3.5 - 5.0 01/26/2020 [facility] g/dL 2:05 PM [facility] Specimen Anatomical Collection Method Collection Time Receive d Time (Source) Location / / Volume Laterality Blood (Blood, 01/25/2020 10:35 01/26/2020 1:01 Venous) AM MATERNAL CHILD NURSE PM MATERNAL CHILD NURSE Outside Referring Lab Provider LAB BLOOD ORDERABLES Performing Organization Address [facility]/ZIP Code Phon e Number [facility] [address] [place] [phone] (ABNORMAL) Creatinine, Serum (01/25/2020 10:35 AM MATERNAL CHILD NURSE) athologist Signature Creatinine 1.3 (H) 0.4 - 1.2 01/26/2020 [facility] mg/dL 2:05 PM [facility] Specimen Anatomical Collection Method Collection Time Receive d Time (Source) Location / / Volume Laterality Blood (Blood, 01/25/2020 10:35 01/26/2020 1:01 Venous) AM MATERNAL CHILD NURSE PM MATERNAL CHILD NURSE Outside Referring Lab Provider LAB BLOOD ORDERABLES Performing Organization Address City/[facility]/ZIP Code Phon e Number [facility] [address] [place] [address] AST (01/25/2020 10:35 AM MATERNAL CHILD NURSE) athologist Signature AST 28 8 - 43 U/L 01/26/2020 [facility] 2:05 PM [facility] Specimen Anatomical Collection Method Collection Time Receive d Time (Source) Location / / Volume Laterality Blood (Blood, 01/25/2020 10:35 01/26/2020 1:01 Venous) AM MATERNAL CHILD NURSE PM MATERNAL CHILD NURSE Outside Referring Lab Provider LAB BLOOD ORDERABLES Performing Organization Address City/[facility]/ZIP Code Phon e Number [facility] [address] [place] [address] ALT (01/25/2020 10:35 AM MATERNAL CHILD NURSE) athologist Signature ALT (SGPT) 22 0 - 34 U/L 01/26/2020 [facility] 2:05 PM [facility] Specimen Anatomical Collection Method Collection Time Receive d Time (Source) Location / / Volume Laterality Blood (Blood, 01/25/2020 10:35 01/26/2020 1:01 Venous) AM MATERNAL CHILD NURSE PM MATERNAL CHILD NURSE Outside Referring Lab Provider LAB BLOOD ORDERABLES Performing Organization Address [facility] Phon e Number [facility] [address] [place] [phone] (ABNORMAL) C-reactive protein (01/25/2020 10:35 AM MATERNAL CHILD NURSE) athologist [facility] CRP 11.7 (H) 0.0 - 4.9 01/26/2020 [facility] mg/L 2:05 PM [facility] Specimen Anatomical Collection Method Collection Time Receive d Time (Source) Location / / Volume Laterality Blood (Blood, 01/25/2020 10:35 01/26/2020 1:01 Venous) AM MATERNAL CHILD NURSE PM MATERNAL CHILD NURSE Outside Referring Lab Provider LAB BLOOD ORDERABLES Performing Organization Address City/[facility] Phon e Number [facility] [address] [place] [phone] Vitamin D, Total ([facility] preferred) (01/25/2020 10:35 AM MATERNAL CHILD NURSE) athologist [facility] Vitamin D, 48.5 ng/mL 01/26/2020 [facility] Total 2:04 PM [facility] Comment: Deficient ?<20 ? ng/mL Insufficient ? 20-<30 ??ng/mL Sufficient ? 30-100 ??ng/mL Vitamin D2/D3 fractionation is recommend ed at the discretion of the clinician if Total Vitamin D is w ithin deficient or insufficient range. Specimen Anatomical Collection Method Collection Time Receive d Time (Source) Location / / Volume Laterality Blood (Blood, 01/25/2020 10:35 01/26/2020 1:01 Venous) AM MATERNAL CHILD NURSE PM MATERNAL CHILD NURSE Outside Referring Lab Provider LAB BLOOD ORDERABLES Performing Organization Address City/State/ZIP Code Phon e Number [facility] [address] [place] [phone] Calcium (01/25/2020 10:35 AM MATERNAL CHILD NURSE) P athologist Signature Calcium, 10.1 8.4 - 10.2 01/26/2020 [facility] Total,S mg/dL 2:05 PM [facility] Specimen Anatomical Collection Method Collection Time Receive d Time (Source) Location / / Volume Laterality Blood (Blood, 01/25/2020 10:35 01/26/2020 1:01 Venous) AM MATERNAL CHILD NURSE PM MATERNAL CHILD NURSE Outside Referring Lab Provider LAB BLOOD ORDERABLES Performing Organization Address City/State/ZIP Code Phon e Number [facility] [address] [place] [phone] documented in this encounter Visit Diagnoses Diagnosis Seropositive rheumatoid arthritis of [facility] ([facility]) Encounter for long-term (current) use of medications Encounter for long-term (current) use of other medications Vitamin D deficiency, unspecified documented in this encounter Care Teams Professor Of Mechanical Engineering Relationship Specialty Start Date End Date Corrine Vazquez MD PCP - General Family Medicine 07/07/19 08/19/[address] [place] [address] documented as of this encounter
--- OUTSIDE RECORDS SUMMARY | 2021-10-24 10:41 | XMS_ITS | Encounter Summary ---
:1945 Author Organization [facility] Address [address] [place] [address] Care Team Providers Name Role Phone Corrine Vazquez MD Primary Care Provider Encounter Details Date Type Department Care Team Description 11/25/2019 Orders Only SE Care Coordination Corrine Vazquez Type 2 diabetes [address] [facility] MD [place] mellitus [place] [address] specified complication, [place] with long-term current [place], [place] use of insu [place] ([facility]) [phone] (Primary Dx) Social History Tobacco Use Types [...] 12/23/2018 organizations such as rastafarian groups, unions, fraternal or athletic groups, or [...] Management (02/05/2021 Abbie Murray, 11:19 AM MANAGER SCIENTIFIC) RN Note: Formatting of this note is differe nt from the original. Routine Health Management Care Team Patient Care Team: Corrine Vazquez MD as PCP - [facility] ([facility]) Yossi Potts, RN as Registered Nurse (Diabetes Education) Abbie Ramesh RN as Shirt Presser Future Scheduled Appointments No future appointments. Health [...] (02/05/2021 11:17 AM No Abbie Ramesh RN MANAGER SCIENTIFIC) Note: Formatting of this note is differe [...] Primary documented in this encounter Care Teams Bow Maker Machine Tender Relationship Specialty Start Date End Date Corrine Vazquez MD PCP - General Family Medicine 07/07/19 08/19/[address] [place] [address] documented as of this encounter
--- OUTSIDE RECORDS SUMMARY | 2021-10-24 10:41 | XMS_ITS | Encounter Summary ---
:1945 Author Organization [facility] Address [address] [place] [address] Care Team Providers Name Role Phone Corrine Vazquez MD Primary Care Provider Encounter Details Date Type Department Care Team Description 11/28/2019 Orders Only [place] Corrine Vazquez MD [address] [place], [place] [address] [place], [place] [phone] (Wo rk) Social History Tobacco Use Types [...] Domitila, Management (02/05/2021 Abbie Murray, 11:19 AM SUPERVISOR INCISING) RN Note: Formatting of this note is differe nt from the original. Routine Health Management Care Team Patient Care Team: Corrine Vazquez MD as PCP - General ([facility] Medicine) Yossi Potts, RN as Registered Nurse (Diabetes Education) Abbie Ramesh, ERA as Vegetable Scullion Future Scheduled Appointments No future appointments. Health Maintenance Health Maintenance Topic Date Due Urine Protein Screening 05/31/2020 Lipid Panel 09/05/2020 Glaucoma Screening 67+ Yr 12/25/2020 Ophthalmology Exam 12/25/2020 [facility] Annual Wellness 01/12/2021 Hemoglobin A1C 01/24/2021 Diabetic Foot Exam 03/16/2021 Colorectal Cancer Screening: Colonoscop y 05/21/2021 Fall Risk Performed 06/05/2021 Mammogram 12/03/2021 COVID-19 Vaccine Completed [facility] Pneumococcal Vaccine: <64 Completed [facility] Pneumococcal Vaccine: 65+ Years Com pleted HPV Vaccines Aged Out Notes: Due: Urine Protein screening Eye exam AWV A1C Lipid panel Diabetes Management General No change (02/05/2021 11:17 AM No Abbie Ramesh, RN SUPERVISOR INCISING) Note: Formatting of this note is differe [...] on filedocumented in this encounter Care Teams Platinum Smith Relationship Specialty Start Date End Date Corrine Vazquez MD PCP - General Family Medicine 07/07/19 08/19/[address] [place] [address] documented as of this encounter
--- OUTSIDE RECORDS SUMMARY | 2021-10-24 10:41 | XMS_ITS | Encounter Summary ---
:1945 Author Organization [facility] Address [address] [place] [address] Care Team Providers Name Role Phone Corrine Vazquez MD Primary Care Provider Reason for Visit Consultation (Routine) - Closed Specialty Diagnoses / Procedures Referred By Contact Refer red To Contact Diagnoses Medicare annual wellness visit, initial Corrine Vazquez MD Care Coordination [address] [place], [place] [phone] Referral ID Status Reason Start Date Expiration Date Visits V isits Requested Authorized [id number] Closed Specialty 12/23/2018 99 99 Services Required Encounter Details Date Type Department Care Team Description 12/30/2019 Patient Outreach SE Care Coordination Abbie Ramesh Counseling and coordination of care (Primary Dx); [address] [facility] Terri RN Type 2 diabetes mellitus with other spec ified complication, with long-term current use of insulin (HCC); [place] [address] [address] Mixed hyperlipidemia; [phone] [facility] Obesity (BMI 30.0-34.9) [place] [address] Social History Tobacco Use Types [...] 12/23/2018 organizations such as restorationist groups, unions, [employer] or athletic groups, or school groups? How [...] AM readings running 83-122. - Discussed with glazier helper in regards to starting dapagliflozin. She is [...] Nurse (Diabetes Education) Abbie Ramesh RN as Panel Flow Machine Operator Future Scheduled Appointments No future [...] Notes: 1 Progress evaluated against: Health Maintenance IESEL PLANT OPERATIONS ENGINEER Corrine Vazquez MD - 12/30/2019 8:40 AM CST Heena jaymie IESEL PLANT OPERATIONS ENGINEER documented in this encounter Plan of Treatment Not on filedocumented as of this encounter Goals Goal Patient Goal Associated Recent Patient-Stated? Author Type Problems Progress Routine Health General No change No Domitila, Management (02/05/2021 Abbie Murray, 11:19 AM BIODIESEL PLANT OPERATIONS ENGINEER) RN Note: Formatting of this note is differe nt from the original. Routine Health Management Care Team Patient Care Team: Corrine Vazquez MD as PCP - General ([facility] Medicine) Yossi Potts RN as Registered Nurse (Diabetes Education) Abbie Ramesh RN as Panel Flow Machine Operator Future Scheduled Appointments No future appointments. Health Maintenance Health Maintenance Topic Date Due Urine Protein Screening 05/31/2020 Lipid Panel 09/05/2020 Glaucoma Screening 67+ Yr 12/25/2020 Ophthalmology Exam 12/25/2020 [facility] [place] 01/12/2021 Hemoglobin A1C 01/24/2021 Diabetic Foot Exam 03/16/2021 Colorectal Cancer Screening: Colonoscop y 05/21/2021 Fall Risk Performed 06/05/2021 Mammogram 12/03/2021 COVID-19 Vaccine Completed [facility] Pneumococcal Vaccine: <64 Completed [facility] Pneumococcal Vaccine: 65+ Years Com pleted HPV Vaccines Aged Out Notes: Due: Urine Protein screening Eye exam AWV A1C Lipid panel Diabetes Management General No change (02/05/2021 11:17 AM Abbie Monzon, RN BIODIESEL PLANT OPERATIONS ENGINEER) Note: Formatting of this note is [...] 30.0-34.9) documented in this encounter Care Teams Car Worker Helper Relationship Specialty Start Date End Date Corrine Vazquez MD PCP - General Family Medicine 07/07/19 08/19/[address] [place] [address] documented as of this encounter
--- OUTSIDE RECORDS SUMMARY | 2021-10-24 10:41 | XMS_ITS | Encounter Summary ---
:1945 Author Organization [facility] Address [address] [place] [address] Care Team Providers Name Role Phone Corrine Vazquez MD Primary Care Provider Reason for Visit Consultation (Routine) - Closed Specialty Diagnoses / Procedures Referred By Contact Refer red To Contact Diagnoses Medicare annual wellness visit, initial Corrine Vazquez MD Care Coordination [address] [place] [address] [place], [place] [phone] Referral ID Status Reason Start Date Expiration Date Visits V isits Requested Authorized [id number] Closed Specialty 12/23/2018 99 99 Services Required Encounter Details Date Type Department Care Team Description 02/01/2020 Patient Outreach SE Care Coordination Abbie Ramesh Counseling and [address] [place] [address] J, RN coordination of care [place], [place] [phone] (Primary Dx) [phone] [place] [address] Social History Tobacco Use Types [...] 12/23/2018 organizations such as advent groups, unions, fraternal or athletic groups, or [...] is first attempt to call this month. ET TURNER Abbie Ramesh RN - 02/01/2020 11:20 AM CST Care Plan - Care Coordination Contact Date: 02/16/2020 2:32 PM Called for monthly follow up and progress; Left message to call back.. This is second attempt to call this month. Also address telephone encounter from yesterday 02/14. ET TURNER documented in this encounter Plan of Treatment Not on filedocumented as of this encounter Goals Goal Patient Goal Associated Recent Patient-Stated? Author Type Problems Progress Routine Health General No change Peter Monzon (02/05/2021 Abbie Murray, 11:19 AM BASKET TURNER) RN Note: Formatting of this note is differe nt from the original. Routine Health Management Care Team Patient Care Team: Corrine Vazquez MD as PCP - [facility] Yossi Potts, RN as Registered Nurse (Diabetes Education) Abbie Ramesh RN as Backup Administrator Future Scheduled Appointments No future appointments. Health [...] (02/05/2021 11:17 AM No Abbie Ramesh RN BASKET TURNER) Note: Formatting of this note is differe [...] imary documented in this encounter Care Teams Conservation Technician Relationship Specialty Start Date End Date Corrine Vazquez MD PCP - General Family Medicine 07/07/19 08/19/[address] [place] [address] documented as of this encounter
--- OUTSIDE RECORDS SUMMARY | 2021-10-24 10:41 | XMS_ITS | Encounter Summary ---
:1945 Author Organization [facility] Address [address] [place] [address] Care Team Providers Name Role Phone Corrine Vazquez MD Primary Care Provider Reason for Visit Consultation (Routine) - Closed Specialty Diagnoses / Procedures Referred By Contact Refer red To Contact Diagnoses Medicare annual wellness visit, initial Corrine Vazquez MD Care Coordination [address] [place], [place] [phone] Referral ID Status Reason Start Date Expiration Date Visits V isits Requested Authorized [id number] Closed Specialty 12/23/2018 99 99 Services Required Encounter Details Date Type Department Care Team Description 11/25/2019 Patient Outreach SE Care Coordination Abbie Ramesh Counseling and coordination of care (Primary Dx); [address] [place] [address] Terri RN Type 2 diabetes mellitus with other spec ified complication, with long-term current use of insulin (HCC); [place] [address] [address] Weak urinary stream [phone] [place] [address] Social History Tobacco Use Types [...] 12/23/2018 organizations such as spiritism groups, unions, Student[employer]under or athletic groups, or school groups? How [...] Nurse (Diabetes Education) Abbie Ramesh RN as Marketing Analytics Manager Future Scheduled Appointments No future appointments. Health Maintenance Health Maintenance Topic Date Due ??? Diabetic Foot Exam 07/16/2019 ??? Mammogram 11/26/2019 ??? Hemoglobin A1C 12/07/2019 ??? Glaucoma Screening 67+ Yr 12/18/2019 ??? Ophthalmology Exam 12/18/2019 ??? Fall Risk Performed 12/24/2019 ??? [facility] Annual Wellness 12/24/2019 ??? Urine Protein Screening [...] back. She had a visit with the power hair clipper this morning. They discussed possibility ofstarting a new medication to protect her heart. She was given some information but would like to discuss with PCP. She plans to make an appointment to discuss prior to starting. Unable to see records from [facility] at the moment. documented in this encounter Plan of Treatment Not on filedocumented as of this encounter Goals Goal Patient Goal Associated Recent Patient-Stated? Author Type Problems Progress Routine Health General No change No Domitila Management (02/05/2021 Abbie Murray, 11:19 AM JOURNEYMAN TOOL AND DIE MAKER) RN Note: Formatting of this note is differe nt from the original. Routine Health Management Care Team Patient Care Team: Corrine Vazquez MD as PCP - General ([facility] Medicine) Yossi Potts, RN as Registered Nurse (Diabetes Education) Abbie Ramesh RN as Marketing Analytics Manager Future Scheduled Appointments No future appointments. Health Maintenance Health Maintenance Topic Date Due Urine Protein Screening 05/31/2020 Lipid Panel 09/05/2020 Glaucoma Screening 67+ Yr 12/25/2020 Ophthalmology Exam 12/25/2020 [facility] Annual Wellness 01/12/2021 Hemoglobin A1C 01/24/2021 Diabetic Foot Exam 03/16/2021 Colorectal Cancer Screening: Colonoscop y 05/21/2021 Fall Risk Performed 06/05/2021 Mammogram 12/03/2021 COVID-19 Vaccine Completed [facility] Pneumococcal Vaccine: <64 Completed [facility] Pneumococcal Vaccine: 65+ Years Com pleted HPV Vaccines Aged Out Notes: Due: Urine Protein screening Eye exam AWV A1C Lipid panel Diabetes Management General No change (02/05/2021 11:17 AM No Abbie Ramesh, RN JOURNEYMAN TOOL AND DIE MAKER) Note: Formatting of this note is [...] stream documented in this encounter Care Teams Industrial Electrician Journeyman Relationship Specialty Start Date End Date Corrine Vazquez MD PCP - General Family Medicine 07/07/19 08/19/[address] [place] [address] documented as of this encounter
--- OUTSIDE RECORDS SUMMARY | 2021-10-24 10:41 | XMS_ITS | Encounter Summary ---
:1945 Author Organization [facility] Address [address] [place] [address] Care Team Providers Name Role Phone Corrine [...] Corrine Vazquez MD Care Coordination [facility] [address] [place] [address] [place], [place] [phone] Referral ID Status Reason Start Date Expiration Date Visits V isits Requested Authorized [id number] Closed Specialty 02/21/2020 03/18/2021 99 99 Services Required Encounter Details Date Type Department Care Team Description 02/21/2020 Patient Outreach SE Care Coordination Abbie Ramesh Counseling and coordination of care (Primary Dx); [address] [place] [address] Terri RN Type 2 diabetes mellitus with other spec ified complication, with long-term current use of insulin (HCC); [place] [address] [address] [facility] Essential hypertension [phone] [place] [address] Social History Tobacco Use Types [...] 12/23/2018 organizations such as catholic groups, unions, [employer]olia [employer] or athletic groups, or school groups? How [...] Nurse (Diabetes Education) Abbie Ramesh RN as Director Of Public Safety Future Scheduled Appointments Future Appointments Date Time Provider Department Center 02/21/2020 2:00 PM Antonio Madsen MD [facility] [place] Health Maintenance Health Maintenance Topic Date Due ??? Diabetic Foot Exam 07/16/2019 ??? Mammogram 11/26/2019 ??? Glaucoma Screening 67+ Yr 12/18/2019 ??? Hemoglobin A1C 03/16/2020 ??? Urine Protein Screening 05/31/2020 ??? Lipid Panel 09/05/2020 ??? Ophthalmology Exam 12/25/2020 ??? Fall Risk Performed 01/12/2021 ??? [facility] Annual Wellness 01/12/2021 ??? Colorectal Cancer Screening: Colonoscopy 05/21/2021 ??? [facility] Pneumococcal Vaccine: 65+ Years Completed ? ? [facility] Pneumococcal Vaccine: <64 Aged Out ??? HPV Vaccines Aged Out Notes: 1 Progress evaluated against: Health Maintenance NESS SPECIALIST Abbie Ramesh RN - 02/21/2020 10:00 AM [...] the morning and document blood sugar readings. NESS SPECIALIST documented in this encounter Plan of Treatment Scheduled Referrals Name Type Priority Associated Diagnoses Order [facility] Ambulatory referral Outpatient Routine Enrolled in chronic O rdered: to Care Coordination Referral care manage ment 02/23/2020 Essential hypert ension Type 2 diabetes mellitus with other specified complication, with long-term current use of insulin (HCC) Mixed hyperlipidemia documented as of this encounter Goals Goal Patient Goal Associated Recent Patient-Stated? Author Type Problems Progress Routine Health General No change No Domitila Management (02/05/2021 Abbie Murary, 11:19 AM BUSINESS SPECIALIST) RN Note: Formatting of this note is differe nt from the original. Routine Health Management Care Team Patient Care Team: Corrine Vazquez MD as PCP - General ([facility] Medicine) Yossi Potts, RN as Registered Nurse (Diabetes Education) Abbie Ramesh RN as Director Of Public Safety Future Scheduled Appointments No future appointments. Health [...] (02/05/2021 11:17 AM No Abbie Ramesh RN BUSINESS SPECIALIST) Note: Formatting of this note is [...] hypertension documented in this encounter Care Teams Manager Store Relationship Specialty Start Date End Date Corrine Vazquez MD PCP - General Family Medicine 07/07/19 08/19/[address] [place] [address] documented as of this encounter
--- OUTSIDE RECORDS SUMMARY | 2021-10-24 10:41 | XMS_ITS | Encounter Summary ---
:1945 Author Organization [facility] Address [address] [place] [address] Care Team Providers Name Role Phone Corrine Herrera MD Primary Care Provider Reason for Visit Reason Onset Date Comments RX 02/15/2020 Encounter Details Date Type Department Care Team Description 02/15/2020 Telephone [place] Corrine Herrera MD RX [address] [place], [place] [address] [place], [place] [phone] (Wo rk) Social History Tobacco Use Types [...] 12/23/2018 organizations such as congregation groups, unions, fraternal or athletic groups, or [...] - 02/20/2020 2:24 PM CST Faxed to [facility] ING DEPARTMENT SUPERVISOR Addendum Note - Corrine Herrera MD - 02/20/2020 2:20 PM CUTTING DEPARTMENT SUPERVISOR Addended by: Corrine HERRERA on: 02/20/2020 02:20 PM Modules accepted: Orders ING DEPARTMENT SUPERVISOR Addendum Note - Nilesh Sanchez RN - 02/20/2020 1:52 PM CUTTING DEPARTMENT SUPERVISOR Addended by: NILESH SANCHEZ on: 02/20/2020 01:52 PM Modules accepted: Orders ING DEPARTMENT SUPERVISOR Telephone Encounter - Nilesh Sanchez RN - 02/20/2020 1:50 PM CST Patient received a letter that the accucheck Alison plus and its lancets will no longer be covered after 02/17/20. Patient had a letter stating the alternative would be the Contour next one. Please reviewRx request. ING DEPARTMENT SUPERVISOR Telephone Encounter - Nilesh Sanchez RN - 02/20/2020 1:46 PM CST Patient informed, she will keep track and let us know. ING DEPARTMENT SUPERVISOR Telephone Encounter - Corrine Herrera MD - [...] dinner and before she goes to bed. ING DEPARTMENT SUPERVISOR Telephone Encounter - Nilesh Sanchez RN - [...] numbers overall while still bringing downher A1C? ING DEPARTMENT SUPERVISOR Telephone Encounter - Corrine Herrera MD - [...] this is also to be expected and anticipated. If anything she would actually need a little bit more insulin to try to get her A1c down into the mid or even lower 7 range. We can either try to do this by increasing her insulin or we could consider alternative medications. The other medications we would consider have potential to be rather expensive however we would not know precisely what her cost would be unless we ordered them and she were to trythem. Let me know if she has any thoughts about wanting to try another different medication or whether or not she would be okay with increasing her insulin by at least 3 to 5 units/day. If she expresses too much concerns and would prefer to just stay where she is that certainly is her choice. ING DEPARTMENT SUPERVISOR Telephone Encounter - Nilesh Sanchez RN - 02/16/2020 2:28 PM CST Patient informed. Patient had an A1c 12/15/19 at [facility] of 8.4. Please advise on if she should change her medications etc. She questions if she should lower her insulin? She also wanted you to know that the Metformin is giving her a little diarrhea. ING DEPARTMENT SUPERVISOR Telephone Encounter - Corrine Herrera MD - 02/15/2020 3:38 PM CST Marcial's last A1c was about 8.3 this was in August. Have Marcial come in to get her next A1c taken. Shedoes not have to be fasting for this and if she wants to come in tomorrow or sometime next week thatwould be good. Based upon her A1c we could then make some recommendations regarding her medications.If she is a little bit concerned about her lower sugars in the morning she could take a little snackat bedtime before she goes to sleep. This could be have a piece of bread with a little bit of peanutbutter on it or something like that. ING DEPARTMENT SUPERVISOR Telephone Encounter - Nilesh Sanchez RN - [...] when she woke up. She is taking 2Metformin in the AM and 1 in the PM. She is also taking 16-17 units of insulin in the evenings. She questions if she needs to cut back. In the month of December she only had 9 times her blood sugar wasthat low in the morning and she was only taking Metformin one tablets BID. Patient stated when it isthis low she can get a bit shaky. Please advise on medication question. ING DEPARTMENT SUPERVISOR Telephone Encounter - Corrine Herrera MD - 02/15/2020 2:39 PM CST There is another one we can try called Sherwin. If she is willing to try let me know and I will sendin for her. ING DEPARTMENT SUPERVISOR Telephone Encounter - Nilesh Sanchez RN - 02/15/2020 9:44 AM CST Please advise if there is another alternative you'd like to prescribe. ING DEPARTMENT SUPERVISOR Telephone Encounter - Phoebe Donohue - 02/15/2020 9:26 AM CST Patient was prescribed Pravastatin but stopped taking it because it caused nightmares. Please call her at [phone]. ING DEPARTMENT SUPERVISOR documented in this encounter Plan of Treatment Not on filedocumented as of this encounter Goals Goal Patient Goal Associated Recent Patient-Stated? Author Type Problems Progress Routine Health General No change Peter Monzon (02/05/2021 Abbie Murray, 11:19 AM CUTTING DEPARTMENT SUPERVISOR) RN Note: Formatting of this note is differe nt from the original. Routine Health Management Care Team Patient Care Team: Corrine Herrera MD as PCP - [facility] Yossi Potts RN as Registered Nurse (Diabetes Education) Abbie Ramesh RN as Swiss Type Screw Machine Operator Future Scheduled Appointments No future appointments. Health Maintenance Health Maintenance Topic Date Due Urine Protein Screening 05/31/2020 Lipid Panel 09/05/2020 Glaucoma Screening 67+ Yr 12/25/2020 Ophthalmology Exam 12/25/2020 [facility] Annual Wellness 01/12/2021 Hemoglobin A1C 01/24/2021 Diabetic [...] change (02/05/2021 11:17 AM Abbie Monzon, RN CUTTING DEPARTMENT SUPERVISOR) Note: Formatting of this note is [...] Primary documented in this encounter Care Teams Solid Tire Finisher Relationship Specialty Start Date End Date Corrine Herrera MD PCP - General Family Medicine 07/07/19 08/19/[address] [place] [address] documented as of this encounter
--- OUTSIDE RECORDS SUMMARY | 2021-10-24 10:41 | XMS_ITS | Encounter Summary ---
:1945 Author Organization [facility] Address [address] [place] [address] Care Team Providers Name Role Phone Corrine Vazquez MD Primary Care Provider Reason for Visit Reason Onset Date Comments Refills 12/13/2019 Lancets Encounter Details Date Type Department Care Team Description 12/13/2019 Telephone [place] Corrine Vazquez, Refills (Lancets) [address] [place], [place] [address] [phone] [place] [address] (Wo rk) Social History Tobacco Use Types [...] Peter Monzon (02/05/2021 Abbie Murray, 11:19 AM INSTALLATION SUPERINTENDENT) RN Note: Formatting of this note is differe nt from the original. Routine Health Management Care Team Patient Care Team: Corrine Vazquez MD as PCP - General ([facility] Medicine) Yossi Potts RN as Registered Nurse (Diabetes Education) Abbie Ramesh RN as Legal Nurse Consultant Future Scheduled Appointments No future appointments. Health Maintenance Health Maintenance Topic Date Due Urine Protein Screening 05/31/2020 Lipid Panel 09/05/2020 Glaucoma Screening 67+ Yr 12/25/2020 Ophthalmology Exam 12/25/2020 [facility] Annual Wellness 01/12/2021 Hemoglobin A1C 01/24/2021 Diabetic Foot Exam 03/16/2021 Colorectal Cancer Screening: Colonoscop y 05/21/2021 Fall Risk Performed 06/05/2021 Mammogram 12/03/2021 COVID-19 Vaccine Completed [facility] Pneumococcal Vaccine: <64 Completed [facility] Pneumococcal Vaccine: 65+ Years Com pleted HPV Vaccines Aged Out Notes: Due: Urine Protein screening Eye exam AWV A1C Lipid panel Diabetes Management General No change (02/05/2021 11:17 AM Abbie Monzon, RN INSTALLATION SUPERINTENDENT) Note: Formatting of this note is differe nt from the original. Diabetes Management Type 2 diabetes mellitus with other spec ified complication (HCC) Managed by (PCP or Endocrinology) Dr. Vazquez (PCP ) Home Glucose tracking 1-3 times per day Diabetic medications insulin glargine (Casi MAGALLANESPEN) 100 UNIT/ML injection 22 units in [...] on filedocumented in this encounter Care Teams Dimensional Integration Engineer Relationship Specialty Start Date End Date Corrine Vazquez MD PCP - General Family Medicine 07/07/19 08/19/[address] [place] [address] documented as of this encounter
--- OUTSIDE RECORDS SUMMARY | 2021-10-24 10:41 | XMS_ITS | Encounter Summary ---
:1945 Author Organization [facility] Address [address] [place] [address] Care Team Providers Name Role Phone Corrine Vazquez MD Primary Care Provider Reason for Visit Reason Onset Date Comments Med Refill 12/28/2019 Encounter Details Date Type Department Care Team Description 12/28/2019 Telephone [place] Corrine Vazquez MD Med Refill [address] [place], [place] [address] [place], [place] [phone] (Wo rk) Social History Tobacco Use Types [...] or relatives? How often do you attend mormonism or More than 4 times per year 12/23/2018 sabianist services? Do you belong to any clubs or No 12/23/2018 organizations such as mormonism groups, unions, fraternal or athletic groups, or [...] 12/28/2019 2:34 PM CST RX faxed to [facility] [phone] FILLER Telephone Encounter - Margareth Sanchez RN - 12/28/2019 2:09 PM CST Please fax Rx to [facility] FILLER Telephone Encounter - Margareth Sanchez RN - 12/28/2019 8:36 AM CST Please review rx request. FILLER documented in this encounter Plan of Treatment Not on filedocumented as of this encounter Goals Goal Patient Goal Associated Recent Patient-Stated? Author Type Problems Progress Routine Health General No change Peter Monzon (02/05/2021 Abbie Murray, 11:19 AM SLIP FILLER) RN Note: Formatting of this note is differe nt from the original. Routine Health Management Care Team Patient Care Team: Corrine Vazquez MD as PCP - General ([facility]) Yossi Potts, RN as Registered Nurse (Diabetes Education) Abbie Ramesh RN as Catalogue Librarian Future Scheduled Appointments No future appointments. Health Maintenance Health Maintenance Topic Date Due Urine Protein Screening 05/31/2020 Lipid Panel 09/05/2020 Glaucoma Screening 67+ Yr 12/25/2020 Ophthalmology Exam 12/25/2020 [facility] Annual Wellness 01/12/2021 Hemoglobin A1C 01/24/2021 Diabetic Foot Exam 03/16/2021 Colorectal Cancer Screening: Colonoscop y 05/21/2021 Fall Risk Performed 06/05/2021 Mammogram 12/03/2021 COVID-19 Vaccine Completed [facility] Pneumococcal Vaccine: <64 Completed [facility] Pneumococcal Vaccine: 65+ Years Com pleted HPV Vaccines Aged Out Notes: Due: Urine Protein screening Eye exam AWV A1C Lipid panel Diabetes Management General No change (02/05/2021 11:17 AM Abbie Monzon, RN SLIP FILLER) Note: Formatting of this note is differe [...] Primary documented in this encounter Care Teams Analytical Chemist Relationship Specialty Start Date End Date Corrine Vazquez MD PCP - General Family Medicine 07/07/19 08/19/[address] [place] [address] documented as of this encounter
--- OUTSIDE RECORDS SUMMARY | 2021-10-24 10:41 | XMS_ITS | Encounter Summary ---
:1945 Author Organization [facility] Address [address] [place] [address] Care Team Providers Name Role Phone Corrine Vazquez MD Primary Care Provider Reason for Visit Reason Onset Date Comments orders 01/20/2020 Encounter Details Date Type Department Care Team Description 01/20/2020 Telephone [place] Corrine Vazquez MD orders [address] [place], [place] [address] [place], [place] [phone] (Wo rk) Social History Tobacco Use Types [...] have them fax the orders to us. IMAN Telephone Encounter - Phoebe Donohue - 01/20/2020 8:58 AM CST Patient is supposed to have lab work per her field checker. She is wondering if outside order has been received. Please call her at [phone]. IMAN documented in this encounter Plan of Treatment Not on filedocumented as of this encounter Goals Goal Patient Goal Associated Recent Patient-Stated? Author Type Problems Progress Routine Health General No change No Peter Ramesh (02/05/2021 Abbie Murray 11:19 AM LARRIMAN) RN Note: Formatting of this note is differe nt from the original. Routine Health Management Care Team Patient Care Team: Corrine Vazquez MD as PCP - General ([facility]) Yossi Potts RN as Registered Nurse (Diabetes Education) Abbie Ramesh RN as Fuel Cell Binder Future Scheduled Appointments No future appointments. Health Maintenance Health Maintenance Topic Date Due Urine Protein Screening 05/31/2020 Lipid Panel 09/05/2020 Glaucoma Screening 67+ Yr 12/25/2020 Ophthalmology Exam 12/25/2020 [facility] Annual Wellness 01/12/2021 Hemoglobin A1C 01/24/2021 Diabetic Foot Exam 03/16/2021 Colorectal Cancer Screening: Colonoscop y 05/21/2021 Fall Risk Performed 06/05/2021 Mammogram 12/03/2021 COVID-19 Vaccine Completed [facility] Pneumococcal Vaccine: <64 Completed [facility] Pneumococcal Vaccine: 65+ Years Com pleted HPV Vaccines Aged Out Notes: Due: Urine Protein screening Eye exam AWV A1C Lipid panel Diabetes Management General No change (02/05/2021 11:17 AM No Abbie Ramesh, RN LARRIMAN) Note: Formatting of this note is differe [...] on filedocumented in this encounter Care Teams Trace Evidence Technician Relationship Specialty Start Date End Date Corrine Vazquez MD PCP - General Family Medicine 07/07/19 08/19/[address] [place] [address] documented as of this encounter
--- OUTSIDE RECORDS SUMMARY | 2021-10-24 10:41 | XMS_ITS | Encounter Summary ---
:1945 Author Organization [facility] Address [address] [place] [address] Care Team Providers Name Role Phone Corrine Vazquez MD Primary Care Provider Reason for Visit Reason Comments Pain in Side Encounter Details Date Type Department Care Team Description 01/13/2020 Office Visit [place] Corrine Vazquez Mixed hyperlipidemia (Primar y Dx); [address] [place] Left-sided chest wall pain; [place], [place] [address] Type 2 diab etes mellitus with other specified complication, with long-term current use of insulin ([facility]) [address] [phone] [place] [address] Social History Tobacco Use Types Packs/Day Years [...] Comments Blood Pressure 132/80 01/13/2020 2:[address] AND BUILDING DECORATOR Pulse 86 01/13/2020 2:[address] AND BUILDING DECORATOR Temperature 36.3 ??C (97.4 ??F) 01/13/2020 2:[address] AND BUILDING DECORATOR Respiratory Rate 14 01/13/2020 2:[address] AND BUILDING DECORATOR Oxygen Saturation 96% 01/13/2020 2:[address] AND BUILDING DECORATOR Inhaled Oxygen Concentration - - Weight 81.6 kg (180 lb) 01/13/2020 2:[address] AND BUILDING DECORATOR Height 160.3 cm (5' 3.11) 01/13/2020 2:[address] AND BUILDING DECORATOR Body Mass Index 31.77 01/13/2020 2:[address] AND BUILDING DECORATOR documented in this encounter Progress Notes Corrine [...] and not sleep as well. Since she stopped taking it 3 weeks ago those side effects [...] release to 500 mg 2 pills in the morning 1 pill in the afternoon. She will [...] for what she describes as a rib going out on her right side. The pain that [...] has been going on for a number ofweeks there is no particular injury that occurred nothing that she can think She has had no fevers no chills no cough no colds she has had no rashes, in this area that would possibly indicate shingles does not affect her appetite does not affect [...] bruise and a little bit of a [place] lump is most likely secondary to where [...] this area that would suggest possibly shingles ET AND BUILDING DECORATOR documented in this encounter Plan of Treatment Not on filedocumented as of this encounter Goals Goal Patient Goal Associated Recent Patient-Stated? Author Type Problems Progress Routine Health General No change No Peter Ramesh (02/05/2021 Abbie Murray, 11:[address] AND BUILDING DECORATOR) RN Note: Formatting of this note is differe nt from the original. Routine Health Management Care Team Patient Care Team: Corrine Vazquez MD as PCP - [facility] ([facility] Yossi Potts, RN as Registered Nurse (Diabetes Education) Abbie Ramesh RN as Glue Machine Operator Future Scheduled Appointments No future [...] [facility] Pneumococcal Vaccine: <64 Completed [facility] Pneumococcal Vaccine: 65+ Years Com pleted HPV Vaccines Aged Out Notes: Due: Urine Protein screening Eye exam AWV A1C Lipid panel Diabetes Management General No change (02/05/2021 11:17 AM No Abbie Ramesh, RN STREET AND BUILDING DECORATOR) Note: Formatting of this note is differe [...] (HCC) documented in this encounter Care Teams Charge Gang Weigher Relationship Specialty Start Date End Date Corrine Vazquez MD PCP - General Family Medicine 07/07/19 08/19/[address] [place] [address] documented as of this encounter
--- OUTSIDE RECORDS SUMMARY | 2021-10-24 10:41 | XMS_ITS | Encounter Summary ---
:1945 Author Organization [facility] Address [address] [place] [address] Care Team Providers Name Role Phone Corrine Vazquez MD Primary Care Provider Reason for Visit Reason Comments Medicare Annual Wellness Visit Subsequent Encounter Details Date Type Department Care Team Description 01/13/2020 Clinical Support [place] Medicare annual wellness [address] visit, subsequent [place], [place] [address] Social History Tobacco Use [...] Comments Blood Pressure 132/80 01/13/2020 2:10 PM ACTIVITY LEADER Pulse 86 01/13/2020 2:10 PM ACTIVITY LEADER Temperature 36.3 ??C (97.4 ??F) 01/13/2020 2:10 PM ACTIVITY LEADER Respiratory Rate 14 01/13/2020 2:10 PM ACTIVITY LEADER Oxygen Saturation 96% 01/13/2020 2:10 PM ACTIVITY LEADER Inhaled Oxygen Concentration - - Weight 81.6 kg (180 lb) 01/13/2020 2:10 PM ACTIVITY LEADER Height 160.3 cm (5' 3.11) 01/13/2020 2:10 PM ACTIVITY LEADER Body Mass Index 31.77 01/13/2020 2:10 PM ACTIVITY LEADER documented in this encounter Progress Notes Lana Knight LPN - 01/13/2020 2:40 PM CST Annual Wellness Visit CARE TEAM / RESOURCES: Patient Care Team: Corrine Vazquez MD as PCP - General (Family Medicine) JOSE DE JESUS [place] as Diabetes Management (Endocrinology) Yossi Potts RN as Registered Nurse (Diabetes Education) Abbie Ramesh RN as Electric Meter Repairer Eye Care: [facility] Dental Care: Dr. Caal [place] Pharmacy: [facility] [address] [address] Other: Visit Vitals BP 132/80 (BP Location: [...] PO) Take by mouth Contains Zinc per Supplier Quality Manager. ??? nitroglycerin (NITROSTAT) 0.4 MG SL tablet [...] disease ??? Gout ??? Hyperlipidemia ??? Other shelter (current) drug therapy ??? Paresthesia of skin [...] / 27 ERICK-7 anxiety screening performed. Scored: 1 Mini-Cog test performed. Scored: 5 / 5 [...] done: The patient had this completed in [facility] [place] two months ago. Will request records. Osteoporosis [...] (based on her medical history and other findings): She's estrogen deficient AND She's at risk for [...] transfusion before 1991. ?? Those born between [id number]. Glaucoma: Medicare Part B (Medical Insurance) covers [...] of one pack a dayfor 30 years). VITY LEADER documented in this encounter Plan of Treatment Not on filedocumented as of this encounter Goals Goal Patient Goal Associated Recent Patient-Stated? Author Type Problems Progress Routine Health General No change No Domitila, Management (02/05/2021 Abbie Murray, 11:19 AM ACTIVITY LEADER) RN Note: Formatting of this note is differe nt from the original. Routine Health Management Care Team Patient Care Team: Corrine Vazquez MD as PCP - General ([facility]) Yossi Potts RN as Registered Nurse (Diabetes Education) Abbie Ramesh, RN as Electric Meter Repairer Future Scheduled Appointments No future appointments. [...] (02/05/2021 11:17 AM No Abbie Ramesh, RN ACTIVITY LEADER) Note: Formatting of this note is differe nt from the original. Diabetes Management Type 2 diabetes mellitus with other spec ified complication (HCC) Managed by (PCP or Endocrinology) Dr. aVzquez (PCP ) Home Glucose tracking 1-3 times [...] nt documented in this encounter Care Teams Town Clerk Relationship Specialty Start Date End Date Corrine Vazquez MD PCP - General Family Medicine 07/07/19 08/19/[address] [place] [address] documented as of this encounter
--- OUTSIDE RECORDS SUMMARY | 2021-10-24 10:42 | XMS_ITS | Encounter Summary ---
:1945 Author Organization [facility] Address [address] [place] [address] Care Team Providers Name Role Phone Corrine Vazquez MD Primary Care Provider Encounter Details Date Type Department Care Team Description 08/18/2019 Orders Only [place] Radha Sharma Urinary tract [address] [place] infection [place] [address] hematuria, site [phone] unspecified (Pr imary Dx) Social History Tobacco [...] Peter Monzon (02/05/2021 Abbie Murray, 11:19 AM COTTON STOMPER) RN Note: Formatting of this note is differe nt from the original. Routine Health Management Care Team Patient Care Team: Corrine Vazquez MD as PCP - General ([facility]) Yossi Potts, RN as Registered Nurse (Diabetes Education) Abbie Ramesh, ERA as Yarn Spinner Future Scheduled Appointments No future appointments. Health [...] Primary documented in this encounter Care Teams Clean In Places Operator Relationship Specialty Start Date End Date Corrine Vazquez MD PCP - General Family Medicine 07/07/19 08/19/[address] [place] [address] documented as of this encounter
--- OUTSIDE RECORDS SUMMARY | 2021-10-24 10:42 | XMS_ITS | Encounter Summary ---
:1945 Author Organization [facility] Address [address] [place] [address] Care Team Providers Name Role Phone Corrine Vazquez MD Primary Care Provider Reason for Visit Consultation (Routine) - Closed Specialty Diagnoses / Procedures Referred By Contact Refer red To Contact Diagnoses Medicare annual wellness visit, initial Corrine Vazquez MD Care Coordination [address] [place], [place] [phone] Referral ID Status Reason Start Date Expiration Date Visits V isits Requested Authorized [id number] Closed Specialty 12/23/2018 99 99 Services Required Encounter Details Date Type Department Care Team Description 10/06/2019 Patient Outreach [place] Care Coordination Abbie Ramesh Counseling and coordination of care (Primary Dx); [address] Terri RN Type 2 diabetes mellitus with other spec ified complication, with long-term current use of insulin ([facility]); [place] [address] [address] Rheumatoid arthritis, involv ing unspecified site, unspecified rheumatoid factor presence ([facility]); [phone] [facility] Mixed hyperlipidemia; [place], [place] Rheumatoid art hritis, involving unspecified site, unspecified whether rheumatoid factor present ([facility]) [id number] Social History Tobacco Use Types Packs/Day [...] or relatives? How often do you attend islam or More than 4 times per year 12/23/2018 holiness services? Do you belong to any clubs or No 12/23/2018 organizations such as islam groups, unions, fraternal or athletic groups, or [...] 12/18/2019 ??? Fall Risk Performed 12/24/2019 ??? [facility] Annual Wellness 12/24/2019 ??? Lipid Panel 03/17/2020 [...] 09/12/2019 10:00 AM JOSE DE JESUS [place] [facility] Yossi Potts RN - 10/06/2019 3:00 PM CDT If we need to add another insulin. Yes. documented in this encounter Plan of Treatment Not on filedocumented as of this encounter Goals Goal Patient Goal Associated Recent Patient-Stated? Author Type Problems Progress Routine Health General No change No Domitila, Management (02/05/2021 Abbie Murray, 11:19 AM SCREEN PRINTING PASTER) RN Note: Formatting of this note is differe nt from the original. Routine Health Management Care Team Patient Care Team: Corrine Vazquez MD as PCP - General ([facility] Medicine) Yossi Potts, RN as Registered Nurse (Diabetes Education) Abbie Ramesh, ERA as Sales Supervisor Future Scheduled Appointments No future appointments. [...] [facility] Pneumococcal Vaccine: <64 Completed [facility] Pneumococcal Vaccine: 65+ Years Com pleted HPV Vaccines Aged Out Notes: Due: Urine Protein screening Eye exam AWV A1C Lipid panel Diabetes Management General No change (02/05/2021 11:17 AM No Abbie Ramesh, RN SCREEN PRINTING PASTER) Note: Formatting of this note is differe [...] hyperlipidemia documented in this encounter Care Teams Plant Security Guard Relationship Specialty Start Date End Date Corrine Vazquez MD PCP - General Family Medicine 07/07/19 08/19/[address] [place] [address] documented as of this encounter
--- OUTSIDE RECORDS SUMMARY | 2021-10-24 10:42 | XMS_ITS | Encounter Summary ---
:1945 Author Organization [facility] Address [address] [place] [address] Care Team Providers Name Role Phone Corrine Vazquez MD Primary Care Provider Reason for Visit Reason Comments urine symptoms pressure, vaginal drainage: yellow/lt brown, no burning with urination, pain on and off, slow stream Encounter Details Date Type Department Care Team Description 08/16/2019 Office Visit [place] Radha Sharma UTI symptoms (Primary Dx); [address] [place] Vaginal discharge; [place], [place] [id number] Social History Tobacco Use Types Packs/Day Years [...] pending. documented in this encounter Progress Notes Radha Sharma MD - 08/16/2019 9:00 AM CDT [...] day and urgency. She says the vaginal d ischarge has been for some time but it is occasionally yellow or brown. It is not itchy. She is intermittently sexually active with her . Is no concerns about sexually transmitted infection. Denies fever chills, malaise. Has had UTI in the past with last one in December 2018 which grew E. coli resistant to Bactrim. She had an A1c earlier this spring that was 8.5. Her GFR was 40. Is followed by endocrinology. She tells me that she has not wanted to start the medications that were recommended by endocrinology because she is concerned about thyroid cancer since her mom had thyroid surgery. She says her blood sugars havebeen doing well on glipizide and Lantus. Current [...] PO) Take by mouth Contains Zinc per Truck Trailer Mechanic. ??? nitroglycerin (NITROSTAT) 0.4 MG SL tablet [...] Peter Ramesh (02/05/2021 Abbie Murray, 11:19 AM WELDING MACHINE OPERATOR HELPER ARC) RN Note: Formatting of this note is differe nt from the original. Routine Health Management Care Team Patient Care Team: Corrine Vazquez MD as PCP - General ([facility] Medicine) Yossi Potts RN as Registered Nurse (Diabetes Education) Abbie Ramesh RN as Leasing Manager Future Scheduled Appointments No future appointments. Health Maintenance Health Maintenance Topic Date Due Urine Protein Screening 05/31/2020 Lipid Panel 09/05/2020 Glaucoma Screening 67+ Yr 12/25/2020 Ophthalmology Exam 12/25/2020 [facility] Annual Wellness 01/12/2021 Hemoglobin A1C 01/24/2021 Diabetic Foot Exam 03/16/2021 Colorectal Cancer Screening: Colonoscop y 05/21/2021 Fall Risk Performed 06/05/2021 Mammogram 12/03/2021 COVID-19 Vaccine Completed [facility] Pneumococcal Vaccine: <64 Completed [facility] Pneumococcal Vaccine: 65+ Years Com pleted HPV Vaccines Aged Out Notes: Due: Urine Protein screening Eye exam AWV A1C Lipid panel documented as of this encounter Procedures Procedure Name Priority Date/Time Associated Diagnosis Comme nts ADD-ON TEST REQUEST Routine 08/16/2019 9:42 AM UTI symptoms Re sults for this CDT procedure are i n the results section. documented in this encounter Results (ABNORMAL) Wet Mount with Rapid Trichomonas (CF,LC,NW,PI,SC,SE,SW and WN only) (08/16/2019 10:11 AM CDT) [facility] Method Time Signature Rapid NEGATIVE Negative 08/16/2019 [facility] Trichomonas 10:26 AM FALLS Test CDT Yeast, Wet Prep NEGATIVE Negative 08/16/2019 YUMA 4:04 PM [facility] Clue Cells, Wet NONE SEEN None Seen 08/16/2019 YUMA Prep /hpf 4:04 PM [facility] WBC, Wet Prep MODERATE (A) None Seen 08/16/2019 YUMA /hpf 4:04 PM [facility] Specimen Anatomical Collection Method Collection Time Receive d Time (Source) Location / / Volume Laterality Swab 08/16/2019 10:11 08/16/2019 AM CDT 10:16 AM CDT Radha Sharam MD LAB BODY FLUIDS AND STOOLS O RDERABLES Performing Organization Address City/State/ZIP Code Phon e Number [facility] [address] [place] [address] LABORATORY [facility] [address] [place] [address] Add-On Test Request (08/16/2019 9:42 AM CDT) [facility] Method Time Signature Add-on Testing SEE BELOW 08/16/2019 YUMA 1:30 PM T [facility] Comment: Urine culture added to [id number] Specimen Anatomical Collection Method Collection Time Receive d Time (Source) Location / / Volume Laterality 08/16/2019 9:42 AM 0 9:42 CDT AM CDT Radha Sharma MD LAB BLOOD ORDERABLES Performing Organization Address City/State/ZIP Code Phon e Number [facility] [address] [place] [address] documented in this encounter Visit Diagnoses Diagnosis UTI symptoms - Primary Vaginal discharge Leukorrhea, not specified as infective Immunization due documented in this encounter Care Teams Vp Customer Development Relationship Specialty Start Date End Date Corrine Vazquez MD PCP - General Family Medicine 07/07/19 08/19/[address] [place] [address] documented as of this encounter
--- OUTSIDE RECORDS SUMMARY | 2021-10-24 10:42 | XMS_ITS | Encounter Summary ---
:1945 Author Organization [facility] Address [address] [place] [address] Care Team Providers Name Role Phone Corrine Vazquez MD Primary Care Provider Encounter Details Date Type Department Care Team Description 08/16/2019 Orders Only [place] Radha Sharma UTI symptoms (Primary [address] Dx) [place], [place] [address] Social History Tobacco Use [...] Peter Ramesh (02/05/2021 Abbie Murray, 11:19 AM GATHERING MACHINE FEEDER) RN Note: Formatting of this note is differe nt from the original. Routine Health Management Care Team Patient Care Team: Corrine Vazquez MD as PCP - General ([facility]) Yossi Potts, RN as Registered Nurse (Diabetes Education) Abbie Ramesh, ERA as Spray Painter Helper Future Scheduled Appointments No future appointments. Health Maintenance Health Maintenance Topic Date Due Urine Protein Screening 05/31/2020 Lipid Panel 09/05/2020 Glaucoma Screening 67+ Yr 12/25/2020 Ophthalmology Exam 12/25/2020 [facility] Annual Wellness 01/12/2021 Hemoglobin A1C 01/24/2021 Diabetic Foot Exam 03/16/2021 Colorectal Cancer Screening: Colonoscop y 05/21/2021 Fall Risk Performed 06/05/2021 Mammogram 12/03/2021 COVID-19 Vaccine Completed [facility] Pneumococcal Vaccine: <64 Completed [facility] Pneumococcal Vaccine: 65+ Years Com pleted HPV Vaccines Aged Out Notes: Due: Urine Protein screening Eye exam AWV A1C Lipid panel documented as of this encounter Results (ABNORMAL) Urinalysis with reflex microscopic (08/16/2019 9:08 AM CDT) [facility] Method Time Signature Type COLLECTION HAT 08/16/2019 [facility] 9:25 AM CDT [place] Color, Urine STRAW YELLOW 08/16/2019 C [facility]Z 9:25 AM CDT [place] Clarity, HAZY (A) CLEAR 08/16/2019 [facility] Urine 9:25 AM CDT [place] Glucose, NEGATIVE NEGATIVE 08/16/2019 [facility] Urine mg/dL 9:25 AM CDT [place] Bilirubin, NEGATIVE NEGATIVE 08/16/2019 [facility] Urine 9:25 AM CDT [place] Ketones, NEGATIVE NEGATIVE 08/16/2019 [facility] Urine mg/dL 9:25 AM CDT [place] Specific 1.025 1.000 08/16/2019 [facility] [place], ->=1.030 9:25 AM CDT [place] Urine Blood, Urine MODERATE (A) NEGATIVE 08/16/2019 [facility] 9:25 AM CDT [place] pH, Urine 5.0 5.0 - 7.0 08/16/2019 [facility] 9:25 AM CDT [place] Protein, 30 (A) NEGATIVE-TRA 08/16/2019 [facility] Urine CE mg/dL 9:25 AM CDT [place] Urobilinogen, 0.2 0.2 - 1.0 08/16/2019 [facility] RAMIREZ Urine E.U./dL 9:25 AM CDT [place] Nitrite, NEGATIVE NEGATIVE 08/16/2019 [facility] RAMIREZ Urine 9:25 AM CDT [place] Leukocytes, SMALL (A) NEGATIVE 08/16/2019 [facility] 9:25 AM CDT [place] Specimen Anatomical Collection Method Collection Time Receive d Time (Source) Location / / Volume Laterality Urine (Urine, 08/16/2019 9:08 AM 08/16/19 20 9:10 Clean Catch) CDT AM CDT Radha Sharma MD LAB URINE ORDERABLES Performing Organization Address City/State/ZIP Code Phon e Number [facility] [place] [address] [place] [address] documented in this encounter Visit Diagnoses Diagnosis UTI symptoms - Primary documented in this encounter Care Teams Wax Specialist Relationship Specialty Start Date End Date Corrine Vazquez MD PCP - General Family Medicine 07/07/19 08/19/[address] [place] [address] documented as of this encounter
--- OUTSIDE RECORDS SUMMARY | 2021-10-24 10:42 | XMS_ITS | Encounter Summary ---
:1945 Author Organization [facility] Address [address] [place] [address] Care Team Providers Name Role Phone Corrine Vazquez MD Primary Care Provider Encounter Details Date Type Department Care Team Description 09/06/2019 Orders Only [place] Corrine Vazquez MD [address] [place], [place] [address] [place], [place] [phone] (Wo rk) Social History Tobacco Use Types [...] Domitila, Management (02/05/2021 Abbie Murray, 11:19 AM HANDSTITCHING MACHINE COLLAR FELLER) RN Note: Formatting of this note is differe nt from the original. Routine Health Management Care Team Patient Care Team: Corrine Vazquez MD as PCP - General ([facility] Medicine) Yossi Potts, RN as Registered Nurse (Diabetes Education) Abbie Ramesh, ERA as Certified Athletic Trainer Future Scheduled Appointments No future appointments. Health Maintenance Health Maintenance Topic Date Due Urine Protein Screening 05/31/2020 Lipid Panel 09/05/2020 Glaucoma Screening 67+ Yr 12/25/2020 Ophthalmology Exam 12/25/2020 [facility] Annual Wellness 01/12/2021 Hemoglobin A1C 01/24/2021 Diabetic Foot Exam 03/16/2021 Colorectal Cancer Screening: Colonoscop y 05/21/2021 Fall Risk Performed 06/05/2021 Mammogram 12/03/2021 COVID-19 Vaccine Completed [facility] Pneumococcal Vaccine: <64 Completed [facility] Pneumococcal Vaccine: 65+ Years Com pleted HPV Vaccines Aged Out Notes: Due: Urine Protein screening Eye exam AWV A1C Lipid panel Diabetes Management General No change (02/05/2021 11:17 AM No Abbie Ramesh, RN HANDSTITCHING MACHINE COLLAR FELLER) Note: Formatting of this note is differe [...] on filedocumented in this encounter Care Teams Roustabout Hand Relationship Specialty Start Date End Date Corrine Vazquez MD PCP - General Family Medicine 07/07/19 08/19/[address] [place] [address] documented as of this encounter
--- OUTSIDE RECORDS SUMMARY | 2021-10-24 10:42 | XMS_ITS | Encounter Summary ---
:1945 Author Organization [facility] Address [address] [place] [address] Care Team Providers Name Role Phone Corrine Vazquez MD Primary Care Provider Reason for Visit Reason Onset Date Comments RX 11/25/2019 Encounter Details Date Type Department Care Team Description 11/25/2019 Telephone [place] Corrine Vazquez MD RX [address] [place], [place] [address] [place], [place] [phone] (Wo rk) Social History Tobacco Use Types [...] Alyssa Will call us back from the [employer] store. Telephone Encounter - Margareth Sanchez RN - 11/28/2019 2:58 PM CDT No answer. Telephone Encounter - Margareth Sanchez RN - 11/28/2019 10:58 AM CDT [facility] Telephone Encounter - Margareth Sanchez RN - 11/28/2019 8:42 AM CDT They open at 9am. Phone number is [phone]. Telephone Encounter - Phoebe Donohue - 11/25/2019 2:02 PM CDT Patient is requesting RX for accu check fast clix be sent to [place] [facility]. Fax number is [phone]. documented in this encounter Plan of Treatment Not on filedocumented as of this encounter Goals Goal Patient Goal Associated Recent Patient-Stated? Author Type Problems Progress Routine Health General No change Peter Monzon (02/05/2021 Abbie Murray, 11:19 AM OFFICE ADMINISTRATION) RN Note: Formatting of this note is differe nt from the original. Routine Health Management Care Team Patient Care Team: Corrine Vazquez MD as PCP - General ([facility]) Yossi Potts, RN as Registered Nurse (Diabetes Education) Abbie Ramesh RN as Journeyman Painter Future Scheduled Appointments No future appointments. Health Maintenance Health Maintenance Topic Date Due Urine Protein Screening 05/31/2020 Lipid Panel 09/05/2020 Glaucoma Screening 67+ Yr 12/25/2020 Ophthalmology Exam 12/25/2020 [facility] Annual Wellness 01/12/2021 Hemoglobin A1C 01/24/2021 Diabetic Foot Exam 03/16/2021 Colorectal Cancer Screening: Colonoscop y 05/21/2021 Fall Risk Performed 06/05/2021 Mammogram 12/03/2021 COVID-19 Vaccine Completed [facility] Pneumococcal Vaccine: <64 Completed [facility] Pneumococcal Vaccine: 65+ Years Com pleted HPV Vaccines Aged Out Notes: Due: Urine Protein screening Eye exam AWV A1C Lipid panel Diabetes Management General No change (02/05/2021 11:17 AM No Abbie Ramesh, RN OFFICE ADMINISTRATION) Note: Formatting of this note is differe [...] filedocumented in this encounter Care Teams Manager Community Development Relationship Specialty Start Date End Date Corrine Vazquez MD PCP - General Family Medicine 07/07/19 08/19/21 [address] [facility] [address] [place] [address] documented as of this encounter
--- OUTSIDE RECORDS SUMMARY | 2021-10-24 10:42 | XMS_ITS | Encounter Summary ---
:1945 Author Organization [facility] Address [address] [place] [address] Care Team Providers Name Role Phone Corrine Vazquez MD Primary Care Provider Reason for Visit Reason Onset Date Comments Med Refill 09/23/2019 Encounter Details Date Type Department Care Team Description 09/23/2019 Refill [place] Corrine Vazquez, Hypothyroidism, [address] [facility] [address] [place] unspecified type [place], [place] [id number] [place] [address] [place] [address] Social History Tobacco Use Types Packs/Day Years [...] Peter Monzon (02/05/2021 Abbie Murray, 11:19 AM ROCK PICKER) RN Note: Formatting of this note is differe nt from the original. Routine Health Management Care Team Patient Care Team: Corrine Vazquez MD as PCP - [facility] ([facility] Yossi Potts RN as Registered Nurse (Diabetes Education) Abbie Ramesh RN as Licensed Psychologist Director Future Scheduled Appointments No future appointments. Health Maintenance Health Maintenance Topic Date Due Urine Protein Screening 05/31/2020 Lipid Panel 09/05/2020 Glaucoma Screening 67+ Yr 12/25/2020 Ophthalmology Exam 12/25/2020 [facility] Annual Wellness 01/12/2021 Hemoglobin A1C 01/24/2021 Diabetic Foot Exam 03/16/2021 Colorectal Cancer Screening: Colonoscop y 05/21/2021 Fall Risk Performed 06/05/2021 Mammogram 12/03/2021 COVID-19 Vaccine Completed [facility] Pneumococcal Vaccine: <64 Completed [facility] Pneumococcal Vaccine: 65+ Years Com pleted HPV Vaccines Aged Out Notes: Due: Urine Protein screening Eye exam AWV A1C Lipid panel Diabetes Management General No change (02/05/2021 11:17 AM Abbie Monzon, RN ROCK PICKER) Note: Formatting of this note is differe [...] type documented in this encounter Care Teams Treasurer Relationship Specialty Start Date End Date Corrine Vazquez MD PCP - General Family Medicine 07/07/19 08/19/[address] [place] [address] documented as of this encounter
--- OUTSIDE RECORDS SUMMARY | 2021-10-24 10:42 | XMS_ITS | Encounter Summary ---
:1945 Author Organization [facility] Address [address] [place] [address] Care Team Providers Name Role Phone Corrine Vazquez MD Primary Care Provider Reason for Visit Reason Comments Diabetes Encounter Details Date Type Department Care Team Description 10/28/2019 Office Visit [place] Corrine Vazquez Type 2 diabetes mellitus wit h other specified complication, with long-term current use of insulin (HCC) (Primary Dx); [address] [place] Mixed hyperlipidemia; [place] [phone] Anemia, unspecified type; [phone] [place] Type 2 diabetes mellitus with other spec ified complication, without long-term current use of insulin (HCC); [place] Hypothyroid ism, unspecified type [phone] Social History Tobacco Use Types Packs/Day Years [...] CDT documented in this encounter Progress Notes DJairo Vazquez MD - 10/28/2019 8:00 AM CDT Estab Patient Visit Subjective Patient ID: Marcial Adams is a 74 y.o. female. HPI the patient is here today for medication review renewal of medications and any laboratory test that would be needed. The patient is our 74-year-old individual who has been seeing [facility] endocrinology department we are closer for [...] 30 days this medications prescribed by her associate professor of communication Xanax 0.5 mg tablet she takes just a small amount couple times a month Calcium and vitamin D supplements Ferrous sulfate 325 once daily Glipizide extended release 10 mg 1 twice daily Basil Angelic insulin 22 units daily Arava 20 mg tablet daily prescribed by her associate professor of communication Levothyroxine 75 mcg daily Crestor 5 mg [...] the extended release form and will have her come back in January for her next A1c [...] mouth 1 (one) time each daywith breakfast Type 2 diabetes mellitus with other specified complication, without long-term current use of insulin(HCC) - insulin glargine (Basaglar KwikPen) 100 UNIT/ML injection; Take 22 units once a day in the PM for diabetes OR DIRECTED - pen needle, diabetic (1st Tier Unifine Pentips Plus) 31G X 5 MM misc; USE TO INJECT INSULIN ONCE ADAY Hypothyroidism, unspecified type - levothyroxine (SYNTHROID) 75 [...] Domitila, Management (02/05/2021 Abbie Murray, 11:19 AM OPTICAL MODEL MAKER AND TESTER) RN Note: Formatting of this note is differe nt from the original. Routine Health Management Care Team Patient Care Team: Corrine Vazquez MD as PCP - General ([facility]) Yossi Potts, RN as Registered Nurse (Diabetes Education) Abbie Ramesh RN as Flake Drier Future Scheduled Appointments No future appointments. Health Maintenance Health Maintenance Topic Date Due Urine Protein Screening 05/31/2020 Lipid Panel 09/05/2020 Glaucoma Screening 67+ Yr 12/25/2020 Ophthalmology Exam 12/25/2020 [facility] Annual Wellness 01/12/2021 Hemoglobin A1C 01/24/2021 Diabetic [...] (02/05/2021 11:17 AM No Abbie Ramesh RN OPTICAL MODEL MAKER AND TESTER) Note: Formatting of this note is differe [...] (ABNORMAL) Basic metabolic panel (03/16/2020 10:17 AM [facility]) Analysis Performed At Patho logist Time Signature Sodium 138 135 - 145 03/16/2020 [facility] mEq/L 6:25 PM [facility] Potassium 4.1 3.5 - 5.1 03/16/2020 [facility] mEq/L 6:25 PM [facility] Chloride 104 98 - 107 03/16/2020 [facility] mEq/L 6:25 PM [facility] CO2 26 22 - 29 03/16/2020 [facility] mmol/L 6:25 PM [facility] Creatinine 1.2 0.4 - 1.2 03/16/2020 [facility] mg/dL 6:25 PM [facility] BUN 27 (H) 5 - 25 03/16/2020 [facility] mg/dL 6:25 PM [facility] Glucose 154 (H) 70 - 100 03/16/2020 [facility] mg/dL 6:25 PM [facility] Calcium, 10.1 8.4 - 10.2 03/16/2020 [facility] Total,S mg/dL 6:25 PM [facility] Fasting? No 03/16/2020 [facility] 10:21 AM [facility] Specimen Anatomical Collection Method Collection Time Receive d Time (Source) Location / / Volume Laterality Blood 03/16/2020 10:17 03/16/2020 5:59 AM [facility] PM OPTICAL MODEL MAKER AND TESTER D. [place] Vazquez MD LAB BLOOD ORDERABLES Performing Organization Address City/State/ZIP Code Phon e Number [facility] [address] [place] [address] [facility] [address] [place] [id number] LABORATORY (ABNORMAL) Hemoglobin A1c (03/16/2020 10:17 AM [facility]) Analysis Performed At Patho logist Time Signature Hemoglobin A1C 8.5 (H) 4.0 - 5.6 03/16/2020 [facility] % A1C 6:26 PM [facility] Comment: Reference Range 4.0-5.6% [...] Laterality Blood 03/16/2020 10:17 03/16/2020 5:59 AM OPTICAL MODEL MAKER AND TESTER PM OPTICAL MODEL MAKER AND TESTER Authorizing Provider Result Herbert Vazquez MD LAB BLOOD ORDERABLES Performing Organization Address City/State/ZIP Code Phon e Number [facility] [address] [place] [address] documented in this encounter Visit Diagnoses Diagnosis Type 2 diabetes mellitus with other spec ified complication, with long-term current use of insulin (HCC) - Primary Mixed hyperlipidemia Anemia, unspecified type Type 2 diabetes mellitus with other spec ified complication, without long-term current use of insulin (HCC) Hypothyroidism, unspecified type documented in this encounter Care Teams Gas Torch Solderer Relationship Specialty Start Date End Date Corrine Vazquez MD PCP - General Family Medicine 07/07/19 08/19/21 [address] [place] [address] documented as of this encounter
--- OUTSIDE RECORDS SUMMARY | 2021-10-24 10:42 | XMS_ITS | Encounter Summary ---
:1945 Author Organization [facility] Address [address] [place] [address] Care Team Providers Name Role Phone Corrnie Vazquez MD Primary Care Provider Encounter Details Date Type Department Care Team Description 09/06/2019 Lab [place] Type 2 diabetes mellitus wit h other specified complication, with long-term current use of insulin (HCC); [address] Mixed hyperlipidemia; [place], [place] [address] Essential hypertension; [phone] Stage 3 chronic kidney disease (HCC) Social [...] Domitila, Management (02/05/2021 Abbie Murray, 11:19 AM DIAGNOSTIC ASSISTANT) RN Note: Formatting of this note is differe nt from the original. Routine Health Management Care Team Patient Care Team: Corrine Vazquez MD as PCP - General ([facility] Medicine) Yossi Potts, RN as Registered Nurse (Diabetes Education) Abbie Ramesh, RN as Jacket Preparer Future Scheduled Appointments No future appointments. Health Maintenance Health Maintenance Topic Date Due Urine Protein Screening 05/31/2020 Lipid Panel 09/05/2020 Glaucoma Screening 67+ Yr 12/25/2020 Ophthalmology Exam 12/25/2020 [facility] Annual Wellness 01/12/2021 Hemoglobin A1C 01/24/2021 Diabetic Foot Exam 03/16/2021 Colorectal Cancer Screening: Colonoscop y 05/21/2021 Fall Risk Performed 06/05/2021 Mammogram 12/03/2021 COVID-19 Vaccine Completed [facility] Pneumococcal Vaccine: <64 Completed [facility] Pneumococcal Vaccine: 65+ Years Com pleted HPV Vaccines Aged Out Notes: Due: Urine Protein screening Eye exam AWV A1C Lipid panel Diabetes Management General No change (02/05/2021 11:17 AM No Abbie Ramesh, RN DIAGNOSTIC ASSISTANT) Note: Formatting of this note is [...] Diagnosis Comme nts GLOMERULAR Routine 09/06/2019 8:08 AM Type 2 diabetes Result s for this FILTRATION RATE CDT mellitus with other proce dure are in specified the results complication, with section. long-term current use of insulin (HCC) Stage 3 chronic kidney disease ( HCC) Essential hypertension HEMOGLOBIN A1C Routine 09/06/2019 8:08 AM Type 2 diabetes Resu lts for this CDT mellitus with other procedur e are in specified the results complication, with section. long-term current use of insulin (HCC) HEPATIC FUNCTION Routine 09/06/2019 8:08 AM Type 2 diabetes Re sults for this PANEL CDT mellitus with other procedur e are in specified the results complication, with section. long-term current use of insulin (HCC) Mixed hyperlipid emia Essential hypertension LIPID PANEL Routine 09/06/2019 8:08 AM Type 2 diabetes Result s for this CDT mellitus with other procedur e are in specified the results complication, with section. long-term current use of insulin (HCC) Mixed hyperlipid emia Essential hypertension BASIC METABOLIC Routine 09/06/2019 8:08 AM Type 2 diabetes Res ults for this PANEL CDT mellitus with other procedur e are in specified the results complication, with section. long-term current use of insulin (HCC) Stage 3 chronic kidney disease ( HCC) Essential hypertension documented in this encounter Results (ABNORMAL) Glomerular filtration rate (GFR) (09/06/2019 8:08 AM CDT) P athologist Signature GFR 37 (A) 09/06/2019 [facility] 8:31 AM CDT [facility] 45 (A) 09/06/2019 [facility] Burmese GFR 8:31 AM CDT [facility] Comment: GFR calculated from serum creatinine v alue Chronic Kidney Disease less than 60 mL/m in/1.73 m2 Kidney Failure less than 15 mL/min/1.73 m2 Note: effective 07/01/06 IDMS-Traceable MDRD Study Equation used. Specimen Anatomical Collection Method Collection Time Receive d Time (Source) Location / / Volume Laterality 09/06/2019 8:08 AM 0 8:08 CDT AM CDT Bacilio SETHI LAB BLOOD ORDERABLES Performing Organization Address City/[facility]/ZIP Code Phon e Number [facility] [address] [place] [phone] (ABNORMAL) Liver panel (09/06/2019 8:08 AM CDT) Analysis Performed At Patho logist Time Signature Total Protein 7.6 6.3 - 8.2 09/06/2019 [facility] g/dL 3:02 PM [facility] Albumin, Serum 4.0 3.5 - 5.0 09/06/2019 [facility] g/dL 3:02 PM [facility] Total Bilirubin <0.7 0.1 - 1.0 09/06/2019 [facility] mg/dL 3:02 PM [facility] Bilirubin, <0.1 0.0 - 0.3 09/06/2019 [facility] Direct mg/dL 3:02 PM [facility] AST 28 8 - 43 U/L 09/06/2019 [facility] 3:02 PM [facility] Alkaline 99 38 - 128 09/06/2019 [facility] Phosphatase U/L 3:02 PM [facility] ALT (SGPT) 52 (H) 0 - 34 U/L 09/06/2019 [facility] 3:02 PM [facility] Specimen Anatomical Collection Method Collection Time Receive d Time (Source) Location / / Volume Laterality Blood 09/06/2019 8:08 AM 0 1:16 CDT PM CDT Bacilio Stewart [facility] LAB BLOOD ORDERABLES Performing Organization Address City/State/ZIP Code Phon e Number [facility] [address] [place] [phone] (ABNORMAL) Basic metabolic panel (09/06/2019 8:08 AM CDT) P athologist Signature Sodium 139 135 - 145 09/06/2019 [facility] mmol/L 8:31 AM CDT [facility] Potassium 4.0 3.5 - 5.1 09/06/2019 [facility] mmol/L 8:31 AM CDT [facility] Comment: . Chloride 103 98 - 107 mmol/L 09/06/2019 8:31 AM CDT [facility] Comment: . CO2 28 22 - 29 mmol/L 09/06/2019 8:31 AM CDT [facility] Comment: . Creatinine 1.4 (H) 0.4 - 1.2 mg/dL 09/06/2019 8:31 AM CDT [facility] Comment: . BUN 28 (H) 5 - 25 mg/dL 09/06/2019 8:31 AM CDT [facility] Comment: . Glucose 157 (H) 70 - 100 mg/dL 09/06/2019 8:31 AM CDT [facility] Calcium, Total,S 9.7 8.4 - 10.2 mg/dL 09/06/2019 8:31 AM CDT [facility] Comment: . Specimen Anatomical Collection Method Collection Time Receive d Time (Source) Location / / Volume Laterality Blood 09/06/2019 8:08 AM 0 8:20 CDT AM CDT Bacilio [facility] LAB BLOOD ORDERABLES Performing Organization Address City/State/ZIP Code Phon e Number [facility] [address] [place] [address] (ABNORMAL) Hemoglobin A1c (09/06/2019 8:08 AM CDT) [...] / / Volume Laterality Blood 09/06/2019 8:08 AM 0 1:16 CDT PM CDT Bacilio [facility] LAB BLOOD ORDERABLES Performing Organization Address City/State/ZIP Code Phon e Number [facility] [address] [place] [address] (ABNORMAL) Lipid panel (09/06/2019 8:08 AM CDT) athologist Signature Cholesterol 183 0 - 199 09/06/2019 [facility] mg/dL 3:02 PM T [facility] Comment: Recommended by National Cholesterol Education Program (ATP III) -------- Cholesterol Ranges -------- <200 ? Desirable 200-239 ? Borderline high >=240 ? High Triglycerides 234 (A) 0 - 149 mg/dL 09/06/2019 3:02 PM CDT [facility] Comment: -------- TRIG Ranges -------- <150 ?Normal 150-199 ? Borderline high 200-499 ? High >=500 ? Very high HDL 37 (A) 40 - 60 mg/dL 09/06/2019 3:02 PM T [facility] Comment: -------- HDL Ranges -------- <40 ?Low 40-59 ?Normal >=60 ? Optimal LDL Calculated 99 0 - 99 mg/dL 09/06/2019 3:02 PM CDT [facility] Comment: -------- LDL Ranges -------- <100 ? Optimal 100-129 ?Near optimal/above op timal 130-159 ?Borderline high 160-189 ?High >=190 ?Very high Fasting? Yes 09/06/2019 8:20 AM T [facility] Specimen Anatomical Collection Method Collection Time Receive d Time (Source) Location / / Volume Laterality Blood 09/06/2019 8:08 AM 0 1:16 CDT PM CDT Bacilio [facility] LAB BLOOD ORDERABLES Performing Organization Address City/State/ZIP Code Phon e Number [facility] [address] [place] [address] documented in this encounter Visit Diagnoses Diagnosis Type 2 diabetes mellitus with other spec ified complication, with long-term current use of insulin (HCC) Mixed hyperlipidemia Essential hypertension Unspecified essential hypertension Stage 3 chronic kidney disease (HCC) documented in this encounter Care Teams Casualty Claims Supervisor Relationship Specialty Start Date End Date Corrine Vazquez MD PCP - General Family Medicine 07/07/19 08/19/21 [address] [facility] [address] [place] [address] documented as of this encounter
--- OUTSIDE RECORDS SUMMARY | 2021-10-24 10:42 | XMS_ITS | Encounter Summary ---
:1945 Author Organization [facility] Address [address] [place] [address] Care Team Providers Name Role Phone Corrine Vazquez MD Primary Care Provider Reason for Visit Reason Onset Date Comments Diabetes numbers low 11/01/2019 Encounter Details Date Type Department Care Team Description 11/01/2019 Telephone [place] Corrine Vazquez, Diabetes numbers low [address] [place], [place] [address] [phone] [place] [address] Social History Tobacco Use Types Packs/Day Years [...] BS next Thursday and will stay on 20 units of Baslagar for now. Telephone Encounter - Margareth Sanchez [...] lower than normal. Please call Pt at [phone] to advise. documented in this encounter Plan of Treatment Not on filedocumented as of this encounter Goals Goal Patient Goal Associated Recent Patient-Stated? Author Type Problems Progress Routine Health General No change Peter Monzon (02/05/2021 Abbie Murray, 11:19 AM POULTRY PROCESSING SUPERVISOR) RN Note: Formatting of this note is differe nt from the original. Routine Health Management Care Team Patient Care Team: Corrine Vazquez MD as PCP - General ([facility] Medicine) Yossi N Delroy, RN as Registered Nurse (Diabetes Education) Abbie Ramesh RN as [place] Operator Future Scheduled Appointments No future appointments. [...] (02/05/2021 11:17 AM No Abbie Ramesh, RN POULTRY PROCESSING SUPERVISOR) Note: Formatting of this note is [...] on filedocumented in this encounter Care Teams Edge Blacker Relationship Specialty Start Date End Date Corrine Vazquez MD PCP - General Family Medicine 07/07/19 08/19/[address] [place] [address] documented as of this encounter
--- OUTSIDE RECORDS SUMMARY | 2021-10-24 10:42 | XMS_ITS | Encounter Summary ---
:1945 Author Organization [facility] Address [address] [place] [address] Care Team Providers Name Role Phone Corrine Vazquez MD Primary Care Provider Encounter Details Date Type Department Care Team Description 08/16/2019 Lab [place] UTI symptoms; [address] Vaginal discharge [place], [place] [address] Social History Tobacco Use [...] Peter Ramesh (02/05/2021 Abbie Murray, 11:19 AM MIDDLE SCHOOL RESOURCE TEACHER) RN Note: Formatting of this note is differe nt from the original. Routine Health Management Care Team Patient Care Team: Corrine Vazquez MD as PCP - General ([facility] Medicine) Yossi Potts, RN as Registered Nurse (Diabetes Education) Abbie Ramesh, ERA as Wire Basket Maker Future Scheduled Appointments No future appointments. Health Maintenance Health Maintenance Topic Date Due Urine Protein Screening 05/31/2020 Lipid Panel 09/05/2020 Glaucoma Screening 67+ Yr 12/25/2020 Ophthalmology Exam 12/25/2020 [facility] Annual Wellness 01/12/2021 Hemoglobin A1C 01/24/2021 Diabetic Foot Exam 03/16/2021 Colorectal Cancer Screening: Colonoscop y 05/21/2021 Fall Risk Performed 06/05/2021 Mammogram 12/03/2021 COVID-19 Vaccine Completed [facility] Pneumococcal Vaccine: <64 Completed [facility] Pneumococcal Vaccine: 65+ Years Com pleted HPV Vaccines Aged Out Notes: Due: Urine Protein screening Eye exam AWV A1C Lipid panel documented as of this encounter Procedures Procedure Name Priority Date/Time Associated Comments Diagnosis WET MOUNT WITH RAPID Routine 08/16/2019 10:11 Vaginal discharg e Results for this TRICHOMONAS AM CDT procedure are i n the results section. URINALYSIS-MICROSCOPI Routine 08/16/2019 9:08 AM UTI symptoms Results for this C EXAM (REFLEXED) CDT procedure are in the results section. URINALYSIS WITH Routine 08/16/2019 9:08 AM UTI symptoms Result s for this REFLEX MICROSCOPIC CDT procedure are in the results section. URINE CULTURE Routine 08/16/2019 9:08 AM Results for this CDT procedure are i n the results section. documented in this encounter Results (ABNORMAL) Wet Mount with Rapid Trichomonas (CF,LC,NW,PI,SC,SE,SW and WN only) (08/16/2019 10:11 AM CDT) [facility] Method Time Signature Rapid NEGATIVE Negative 08/16/2019 [facility] Trichomonas 10:26 AM [facility] Test CDT Yeast, Wet Prep NEGATIVE Negative 08/16/2019 [facility] 4:04 PM [facility] Clue Cells, Wet NONE SEEN None Seen 08/16/2019 [facility] Prep /hpf 4:04 PM [facility] WBC, Wet Prep MODERATE (A) None Seen 08/16/2019 [facility] /hpf 4:04 PM CDT [facility] Specimen Anatomical Collection Method Collection Time Receive d Time (Source) Location / / Volume Laterality Swab 08/16/2019 10:11 08/16/2019 AM CDT 10:16 AM CDT Radha Sharma MD LAB BODY FLUIDS AND STOOLS O RADHA Performing Organization Address City/[facility]/ZIP Code Phon e Number [facility] [address] [place] [address] LABORATORY [facility] [address] [place] [address] (ABNORMAL) Urine culture (08/16/2019 9:08 AM CDT) [facility] Method Time Signature Urine Culture Escherichia coli 08/18/2019 [facility] >100,000 cfu/ml 9:36 AM CDT [facility] [place] [facility] Specimen (Source) Anatomical Collection Method Collection Time Re ceived Time Location / / Volume Laterality Urine (Urine, 08/16/2019 9:08 08/17/2019 2:33 Collection Hat) AM CDT PM CDT Comment: URINE Organism Antibiotic Method [...] - GENERAL O RDERABLES Performing Organization Address City/[facility]/ZIP Code Phon e Number [facility] [address] [place] [address] (ABNORMAL) Urinalysis-Microscopic Exam (08/16/2019 9:08 AM CDT) [facility] Method Time Signature Casts, urine NONE SEEN 0-2 Hyaline 08/16/2019 [facility] /lpf 9:26 AM CDT [place] Significant NONE SEEN None Seen 08/16/2019 [facility] casts, urine /lpf 9:26 AM CDT [place] RBC, Urine 4-10 (A) 0 - 3 /hpf 08/16/2019 [facility] 9:26 AM CDT [place] WBC, Urine 21-50 (A) /hpf 08/16/2019 [facility] 9:26 AM CDT [place] Comment: Male Ref Range ? 0-3/hpf Female Ref Range ?? 0-10/hpf Squamous Epithelial, 1+ (A) Few /lpf 08/16/2019 9:26 AM [facility] [place] Urine CDT Trans Epithelial, NONE SEEN 0 - 3 /hpf 08/16/2019 9:26 AM [facility] [place] Urine CDT Renal Tubular Cells, NONE SEEN 0 - 1 /hpf 08/16/2019 9:26 AM [facility] [place] Urine CDT Bacteria, Urine FEW None Seen /hpf 08/16/2019 9:26 AM [facility] [place] CDT Specimen Anatomical Collection Method Collection Time Receive d Time (Source) Location / / Volume Laterality 08/16/2019 9:08 AM 0 9:10 CDT AM CDT Radha Sharma MD LAB URINE ORDERABLES Performing Organization Address City/State/ZIP Code Phon e Number [facility] [place] [address] [place] [address] (ABNORMAL) Urinalysis with reflex microscopic (08/16/2019 9:08 AM CDT) [facility] Method Time Signature Type COLLECTION HAT [...] [place] Specific 1.025 1.000 08/16/2019 [facility] [place], ->=1.030 9:25 AM CDT [place] Urine Blood, Urine MODERATE (A) NEGATIVE 08/16/2019 [facility] 9:25 AM CDT [place] pH, Urine 5.0 5.0 - 7.0 08/16/2019 [facility] 9:25 AM CDT [place] Protein, 30 (A) NEGATIVE-TRA 08/16/2019 [facility] Urine CE mg/dL 9:25 AM CDT [place] Urobilinogen, 0.2 0.2 - 1.0 08/16/2019 [facility] Urine E.U./dL 9:25 AM CDT [place] Nitrite, NEGATIVE NEGATIVE 08/16/2019 [facility] Urine 9:25 AM CDT [place] Leukocytes, SMALL (A) NEGATIVE 08/16/2019 [facility] Urine 9:25 AM CDT [place] Specimen Anatomical Collection Method Collection Time Receive d Time (Source) Location / / Volume Laterality Urine (Urine, 08/16/2019 9:08 AM 08/16/19 20 9:10 Clean Catch) CDT AM CDT Radha Sharma MD LAB URINE ORDERABLES Performing Organization Address City/State/ZIP Code Phon e Number [facility] [address] [place] [address] documented in this encounter Visit Diagnoses Diagnosis UTI symptoms Vaginal discharge Leukorrhea, not specified as infective documented in this encounter Care Teams Production Support Manager Relationship Specialty Start Date End Date Corrine Vazquez MD PCP - General Family Medicine 07/07/19 08/19/[address] [place] [address] documented as of this encounter
--- OUTSIDE RECORDS SUMMARY | 2021-10-24 10:42 | XMS_ITS | Encounter Summary ---
:1945 Author Organization [facility] Address [address] [place] [address] Care Team Providers Name Role Phone Corrine Vazquez MD Primary Care Provider Reason for Visit Reason Onset Date Comments talk to nurse/lab results 09/08/2019 Encounter Details Date Type Department Care Team Description 09/08/2019 Telephone [place] Corrine Vazquez talk to nurse/lab [address] [place] results [place], [place] [address] [phone] [place] [address] Social History Tobacco Use Types Packs/Day Years [...] office and addressed. Telephone Encounter - Hali Cormier MA - 09/09/2019 8:51 AM CDT Spoke [...] but it is still > 8.0. Her otherlabs including chemistries, LFT, cholesterol panel pretty good. Since Dr. Stewart ([facility]'s Logistics Engineering Manager) is the one who ordered these tests he will most likely send her a lab letter as well as most likely adjust her medications. Marcial will be coming to our clinic for her diabetic cares after this so that she doesn't need to drive to [place]. Let Marcial know that if she doesn't hear from Dr. Stewart's office in the next 7-10 days regarding how to adjust her medications to treat her diabetes to let us know. Or also ask if she was going to go down to [facility] to consult with Dr. Stewart this one [...] Peter Monzon (02/05/2021 Abbie Murray, 11:19 AM TALENT ACQUISITION LEAD) RN Note: Formatting of this note is differe nt from the original. Routine Health Management Care Team Patient Care Team: Corrine Vazquez MD as [facility] - [facility] Yossi Potts, RN as Registered Nurse (Diabetes Education) Abbie Ramesh RN as Territory Development Manager Future Scheduled Appointments No future appointments. Health Maintenance Health Maintenance Topic Date Due Urine Protein Screening 05/31/2020 Lipid Panel 09/05/2020 Glaucoma Screening 67+ Yr 12/25/2020 Ophthalmology Exam 12/25/2020 [facility] Annual Wellness 01/12/2021 Hemoglobin A1C 01/24/2021 Diabetic Foot Exam 03/16/2021 Colorectal Cancer Screening: Colonoscop y 05/21/2021 Fall Risk Performed 06/05/2021 Mammogram 12/03/2021 COVID-19 Vaccine Completed [facility] Pneumococcal Vaccine: <64 Completed [facility] Pneumococcal Vaccine: 65+ Years Com pleted HPV Vaccines Aged Out Notes: Due: Urine Protein screening Eye exam AWV A1C Lipid panel Diabetes Management General No change (02/05/2021 11:17 AM Abbie Monzon, RN TALENT ACQUISITION LEAD) Note: Formatting of this note is [...] on filedocumented in this encounter Care Teams Team Facilitator Relationship Specialty Start Date End Date Corrine Vazquez MD PCP - General Family Medicine 07/07/19 08/19/[address] [place] [address] documented as of this encounter
--- OUTSIDE RECORDS SUMMARY | 2021-10-24 10:42 | XMS_ITS | Encounter Summary ---
:1945 Author Organization [facility] Address [address] [place] [address] Care Team Providers Name Role Phone Corrine Vazquez MD Primary Care Provider Encounter Details Date Type Department Care Team Description 08/18/2019 Orders Only Chuckie Pierre Radha Sharma Urinary tract [address] [place] [address] hematuria, site [phone] unspecified (Pr imary Dx) Social History Tobacco [...] Peter Monzon (02/05/2021 Abbie Murray, 11:19 AM CHILI POWDER MIXER) RN Note: Formatting of this note is differe nt from the original. Routine Health Management Care Team Patient Care Team: Corrine Vazquez MD as PCP - General ([facility]) Yossi Potts, RN as Registered Nurse (Diabetes Education) Abbie Ramesh, ERA as Orthopedic Technician Future Scheduled Appointments No future appointments. [...] Primary documented in this encounter Care Teams Decating Machine Operator Relationship Specialty Start Date End Date Corrine Vazquez MD PCP - General Family Medicine 07/07/19 08/19/[address] [place] [address] documented as of this encounter
--- OUTSIDE RECORDS SUMMARY | 2021-10-24 10:42 | XMS_ITS | Encounter Summary ---
:1945 Author Organization [facility] Address [address] [place] [address] Care Team Providers Name Role Phone Adriane Patel COMMUNICATIONS ELECTRICIAN SUPERVISOR, WIRE FENCE ERECTOR Primary Care Provider [phone] Reason for Visit Reason Onset Date Comments Med Refill 07/25/2019 Encounter Details Date Type Department Care Team Description 07/25/2019 Refill [place] Corrine Vazquez, Anemia, unspecified type [address] [facility] [address] [place], [place] [address] [phone] [place] [address] Social History Tobacco Use Types Packs/Day Years [...] or relatives? How often do you attend yazidism or More than 4 times per year 12/23/2018 cheondoism services? Do you belong to any clubs or No 12/23/2018 organizations such as yazidism groups, unions, fraternal or athletic groups, or [...] Peter Ramesh (02/05/2021 Abbie Murray, 11:19 AM ROTARY DRIER) RN Note: Formatting of this note is differe nt from the original. Routine Health Management Care Team Patient Care Team: Corrine Vazquez MD as [facility]CP - [facility]) Yossi Potts, RN as Registered Nurse (Diabetes Education) Abbie Ramesh, ERA as Tailing Hand Future Scheduled Appointments No future appointments. Health [...] [facility] Pneumococcal Vaccine: <64 Completed [facility] Pneumococcal Vaccine: 65+ Years Com pleted HPV Vaccines Aged Out Notes: Due: Urine Protein screening Eye exam AWV A1C Lipid panel documented as of this encounter Visit Diagnoses Diagnosis Anemia, unspecified type documented in this encounter Care Teams Winder Tender Relationship Specialty Start Date End Date Adriane Patel, COMMUNICATIONS ELECTRICIAN SUPERVISOR, WIRE FENCE ERECTOR PCP - General Family Medicine 08/20/[address] [place] [address] documented as of this encounter
--- OUTSIDE RECORDS SUMMARY | 2021-10-24 10:42 | XMS_ITS | Encounter Summary ---
:1945 Author Organization [facility] Address [address] [place] [address] Care Team Providers Name Role Phone Corrine Vazquez MD Primary Care Provider Reason for Visit Reason Onset Date Comments Lab questions 08/31/2019 Encounter Details Date Type Department Care Team Description 08/31/2019 Telephone [place] Corrine Vazquez MD Lab questions [address] [place], [place] [address] [place], [place] [phone] (Wo rk) Social History Tobacco Use Types [...] having next week. Please call Pt at [phone] to advise. documented in this encounter Plan of Treatment Not on filedocumented as of this encounter Goals Goal Patient Goal Associated Recent Patient-Stated? Author Type Problems Progress Routine Health General No change Peter Monzon (02/05/2021 Abbie Murray, 11:19 AM EDUCATION SPECIALIST) RN Note: Formatting of this note is differe nt from the original. Routine Health Management Care Team Patient Care Team: Corrine Vazquez MD as PCP - General ([facility]) Yossi Potts, RN as Registered Nurse (Diabetes Education) Abbie Ramesh RN as Clean Up Helper Banquet Future Scheduled Appointments No future appointments. Health Maintenance Health Maintenance Topic Date Due Urine Protein Screening 05/31/2020 Lipid Panel 09/05/2020 Glaucoma Screening 67+ Yr 12/25/2020 Ophthalmology Exam 12/25/2020 [facility] Annual Wellness 01/12/2021 Hemoglobin A1C 01/24/2021 Diabetic Foot Exam 03/16/2021 Colorectal Cancer Screening: Colonoscop y 05/21/2021 Fall Risk Performed 06/05/2021 Mammogram 12/03/2021 COVID-19 Vaccine Completed [facility] Pneumococcal Vaccine: <64 Completed [facility] Pneumococcal Vaccine: 65+ Years Com pleted HPV Vaccines Aged Out Notes: Due: Urine Protein screening Eye exam AWV A1C Lipid panel Diabetes Management General No change (02/05/2021 11:17 AM No Abbie Ramesh RN EDUCATION SPECIALIST) Note: Formatting of this note is [...] on filedocumented in this encounter Care Teams Roll Cleaner Relationship Specialty Start Date End Date Corrine aVzquez MD PCP - General Family Medicine 5/21/20 7/4/[address] [place] [address] documented as of this encounter
--- OUTSIDE RECORDS SUMMARY | 2021-10-24 10:42 | XMS_ITS | Encounter Summary ---
:1945 Author Organization [facility] Address [address] [place] [address] Care Team Providers Name Role Phone Corrine Vazquez MD Primary Care Provider Reason for Visit Reason Onset Date Comments Blood sugar numbers 11/07/2019 Encounter Details Date Type Department Care Team Description 11/07/2019 Telephone [place] Corrine Vazquez, Blood sugar numbers [address] [place], [place] [address] [phone] [place] [address] ([facility]) Social History Tobacco Use Types [...] in to see her heart doctor at [facility] Dr. Currie about a week or so [...] 11/05 Even 138 11/04 AM 95 11/04 [id number] 11/04 HS 185 11/03 AM 104 11/03 Noon 103 11/03 Ofelia 120 9/18 HS 187 11/02 AM 91 9 HS 133 11/01 AM 92 11/01 Noon 181 11/01 HS 295 Telephone Encounter - Luciana Albarado - 11/07/2019 8:26 AM CDT Pt called per Dr. Vazquez request to give her blood sugar numbers. Please call Pt at [phone] to advise. documented in this encounter Plan of Treatment Not on filedocumented as of this encounter Goals Goal Patient Goal Associated Recent Patient-Stated? Author Type Problems Progress Routine Health General No change Peter Monzon (02/05/2021 Abbie Murray, 11:19 AM BLENDER) RN Note: Formatting of this note is differe nt from the original. Routine Health Management Care Team Patient Care Team: Corrine Vazquez MD as [facility] - [facility] Yossi Potts RN as Registered Nurse (Diabetes Education) Abbie Ramesh RN as Machine Load Clerk Future Scheduled Appointments No future appointments. Health [...] change (02/05/2021 11:17 AM Abbie Monzon, RN BLENDER) Note: Formatting of this note is differe [...] on filedocumented in this encounter Care Teams Display Specialist Relationship Specialty Start Date End Date Corrine Vazquez MD PCP - General Family Medicine 07/07/19 08/19/[address] [place] [address] documented as of this encounter
--- OUTSIDE RECORDS SUMMARY | 2021-10-24 10:42 | XMS_ITS | Encounter Summary ---
:1945 Author Organization [facility] Address [address] [place] [address] Care Team Providers Name Role Phone Corrine Vazquez MD Primary Care Provider Reason for Visit Consultation (Routine) - Closed Specialty Diagnoses / Procedures Referred By Contact Refer red To Contact Diagnoses Medicare annual wellness visit, initial Corrine Vazquez MD Care Coordination 17[address] [facility] [address] [phone] Referral ID Status Reason Start Date Expiration Date Visits V isits Requested Authorized [id number] Closed Specialty 12/23/2018 99 99 Services Required Encounter Details Date Type Department Care Team Description 11/08/2019 Patient Outreach SE Care Coordination Abbie Ramesh, [address] [place] [address] [place] [address] [place] [phone] Social History Tobacco Use Types Packs/Day Years [...] More than 4 times per year 12/23/2018 church services? Do you belong to any clubs [...] Ramesh Management (02/05/2021 Abbie Murray, 11:19 AM MACHINE PIE MAKER) RN Note: Formatting of this note is differe nt from the original. Routine Health Management Care Team Patient Care Team: Corrine Vazquez MD as PCP - General ([facility] Medicine) Yossi Potts, RN as Registered Nurse (Diabetes Education) Abbie Ramesh RN as Biological Plant Operator Future Scheduled Appointments No future appointments. Health Maintenance Health Maintenance Topic Date Due Urine Protein Screening 05/31/2020 Lipid Panel 09/05/2020 Glaucoma Screening 67+ Yr 12/25/2020 Ophthalmology Exam 12/25/2020 [facility] Annual Wellness 01/12/2021 Hemoglobin A1C 01/24/2021 Diabetic Foot Exam 03/16/2021 Colorectal Cancer Screening: Colonoscop y 05/21/2021 Fall Risk Performed 06/05/2021 Mammogram 12/03/2021 COVID-19 Vaccine Completed [facility] Pneumococcal Vaccine: <64 Completed [facility] Pneumococcal Vaccine: 65+ Years Com pleted HPV Vaccines Aged Out Notes: Due: Urine Protein screening Eye exam AWV A1C Lipid panel Diabetes Management General No change (02/05/2021 11:17 AM Abbie Monzon, RN MACHINE PIE MAKER) Note: Formatting of this note is [...] on filedocumented in this encounter Care Teams Special Systems Technician Relationship Specialty Start Date End Date Corrine Vazquez MD PCP - General Family Medicine 07/07/19 08/19/[address] [place] [address] documented as of this encounter
--- OUTSIDE RECORDS SUMMARY | 2021-10-24 10:42 | XMS_ITS | Encounter Summary ---
:1945 Author Organization [facility] Address [address] [place] [address] Care Team Providers Name Role Phone Corrine Vazquez MD Primary Care Provider Reason for Visit Reason Comments Diabetes Mellitus Encounter Details Date Type Department Care Team Description 09/12/2019 [facility] SE Endocrinology Bacilio Stewart, Type 2 diabetes mellitus wit h other specified complication, with long-term current use of insulin (HCC) (Primary Dx); [address] [facility] MBBS Stage 3 chronic kidney disease (HCC); [place] [address] [address] [facility] Mixed hyperlipidemia; [phone] [place], [place] Abnormal liver function test; [address] Essential hypertension Social History Tobacco Use Types [...] antibiotic with which she noticed low sugars. She cut back on the dose of insulin and glipizide. Later, she was prescribed a different antibiotic and noticed hyperglycemia. She gradually increased her insulin and glipizide doses. Most recent a1c was 8.3% on 09/06/19, not significantly changed from 8.5% on 06/01/19. Current diabetes regimen includes Glipizide ER 20 mg daily in AM. She has also been on basal insulin, currently Glargine 25 units daily, dose was increased from 22 units on 09/07/19. Our clinical informatics educator, Denny Potts, has been in touch [...] Last eye exam showed no retinopathy in [place]. Dorsal aspectof toes hurts sometimes. Denies any numbness or tingling sensation in feet otherwise. No skin changes or diabetic foot ulcers. No regular exercise. She completed labs on 09/06/19. Serum electrolytes were normal. Creatinine was 1.4 with an eGFR 37. BUN was elevated, 28 (5-25). Serum calcium was normal, 9.7. ALT was elevated, 52 (0-34). Rest of the LFTs were within normal limits. Total cholesterol was [...] More than three times a week Attends oriental orthodox service: More than 4 times per year [...] normal limits. We will recheck LFTs before next visit. Follow up in 3 months, with a1c, [...] be billed by time spent. The patient indicatesunderstanding of these issues and agrees with the plan. Time spent during this phone call was 33 minutes. Bacilio Stewart MD Staff Department Assistant documented in this encounter Plan of Treatment Not on filedocumented as of this encounter Goals Goal Patient Goal Associated Recent Patient-Stated? Author Type Problems Progress Routine Health General No change No Domitila, Management (02/05/2021 Abbie Murray, 11:19 AM DATABASE ADMINISTRATION PROJECT MANAGER) RN Note: Formatting of this note is differe nt from the original. Routine Health Management Care Team Patient Care Team: Corrine Vazquez MD as PCP - [facility] Yossi Potts, RN as Registered Nurse (Diabetes Education) Abbie Ramesh RN as Roll Press Operator Future Scheduled Appointments No future appointments. Health Maintenance Health Maintenance Topic Date Due Urine Protein Screening 05/31/2020 Lipid Panel 09/05/2020 Glaucoma Screening 67+ Yr 12/25/2020 Ophthalmology Exam 12/25/2020 [facility] [place] Wellness 01/12/2021 Hemoglobin A1C 01/24/2021 Diabetic Foot Exam 03/16/2021 Colorectal Cancer Screening: Colonoscop y 05/21/2021 Fall Risk Performed 06/05/2021 Mammogram 12/03/2021 COVID-19 Vaccine Completed [facility] Pneumococcal Vaccine: <64 Completed [facility] Pneumococcal Vaccine: 65+ Years Com pleted HPV Vaccines Aged Out Notes: Due: Urine Protein screening Eye exam AWV A1C Lipid panel Diabetes Management General No change (02/05/2021 11:17 AM No Abbie Ramesh RN DATABASE ADMINISTRATION PROJECT MANAGER) Note: Formatting of this note [...] (ABNORMAL) CBC ([facility]) (03/16/2020 10:17 AM DATABASE ADMINISTRATION PROJECT MANAGER) P athologist Signature WBC 7.1 3.5 - 10.5 03/16/2020 [facility] [place] K/uL 10:23 AM DATABASE ADMINISTRATION PROJECT MANAGER [place] RBC 3.91 3.90 - 5.00 03/16/2020 [facility] [place] M/uL 10:23 AM DATABASE ADMINISTRATION PROJECT MANAGER [place] Hemoglobin 11.5 (L) 12.0 - 15.5 03/16/2020 [facility] [place] g/dL 10:23 AM DATABASE ADMINISTRATION PROJECT MANAGER [place] Hematocrit 35.5 35.0 - 44.0 03/16/2020 [facility] [place] % 10:23 AM DATABASE ADMINISTRATION PROJECT MANAGER [place] Platelets 199 150 - 450 03/16/2020 [facility] [place] K/uL 10:23 AM DATABASE ADMINISTRATION PROJECT MANAGER [place] MCV 90.8 81.6 - 98.3 03/16/2020 [facility] [place] fL 10:23 AM DATABASE ADMINISTRATION PROJECT MANAGER [place] MCH 29.4 26.0 - 32.0 03/16/2020 [facility] [place] pg 10:23 AM DATABASE ADMINISTRATION PROJECT MANAGER [place] MCHC 32.4 32.0 - 36.0 03/16/2020 [facility] [place] g/dL 10:23 AM DATABASE ADMINISTRATION PROJECT MANAGER [place] RDW 13.2 11.9 - 15.5 03/16/2020 [facility] [place] % 10:23 AM DATABASE ADMINISTRATION PROJECT MANAGER [place] Specimen Anatomical Collection Method Collection Time Receive d Time (Source) Location / / Volume Laterality Blood 03/16/2020 10:17 03/16/2020 AM DATABASE ADMINISTRATION PROJECT MANAGER 10:21 AM DATABASE ADMINISTRATION PROJECT MANAGER Bacilio DELA CRUZ LAB BLOOD ORDERABLES Performing Organization Address City/State/ZIP Code Phon e Number [facility] [place] [address] [place] [address] Liver panel (03/16/2020 10:17 AM DATABASE ADMINISTRATION PROJECT MANAGER) P athologist Signature Total Protein 7.7 6.3 - 8.2 03/16/2020 [place] g/dL 6:25 PM [facility] Albumin, Serum 4.2 3.5 - 5.0 03/16/2020 [place] g/dL 6:25 PM [facility] Total Bilirubin <0.7 0.1 - 1.0 03/16/2020 [place] mg/dL 6:25 PM [facility] Bilirubin, <0.1 0.0 - 0.3 03/16/2020 [place] Direct mg/dL 6:25 PM DATABASE ADMINISTRATION PROJECT MANAGER [facility] AST 27 8 - 43 U/L 03/16/2020 [place] 6:25 PM [facility] Alkaline 66 38 - 128 03/16/2020 [place] Phosphatase U/L 6:25 PM [facility] ALT (SGPT) 21 0 - 34 U/L 03/16/2020 [place] 6:25 PM [facility] Specimen Anatomical Collection Method Collection Time Receive d Time (Source) Location / / Volume Laterality Blood 03/16/2020 10:17 03/16/2020 5:59 AM DATABASE ADMINISTRATION PROJECT MANAGER PM DATABASE ADMINISTRATION PROJECT MANAGER Bacilio DELA CRUZ LAB BLOOD ORDERABLES Performing Organization Address City/State/ZIP Code Phon e Number [facility] [address] [place] [address] documented in this encounter Visit Diagnoses Diagnosis Type 2 diabetes mellitus with other spec ified complication, with long-term current use of insulin (HCC) - Primary Stage 3 chronic kidney disease (HCC) Mixed hyperlipidemia Abnormal liver function test Nonspecific abnormal results of liver fu nction study Essential hypertension Unspecified essential hypertension documented in this encounter Care Teams Writing Manager Relationship Specialty Start Date End Date Corrine Vazquez MD PCP - General Family Medicine 07/07/19 08/19/[address] [place] [address] documented as of this encounter
--- OUTSIDE RECORDS SUMMARY | 2021-10-24 10:42 | XMS_ITS | Encounter Summary ---
:1945 Author Organization [facility] Address [address] [place] [address] Care Team Providers Name Role Phone Corrine Vazquez MD Primary Care Provider Encounter Details Date Type Department Care Team Description 07/26/2019 Orders Only SE Endocrinology Bacilio Stewart, Type 2 diabetes mellitus wit h other specified complication, with long-term current use of insulin (HCC) (Primary Dx); [address] [place] [address] MBBS Stage 3 chronic kidney disease (HCC) [place] [address] [place] [address] [place] [address] Social History Tobacco Use Types Packs/Day Years [...] Peter Ramesh (02/05/2021 Abbie Murray, 11:19 AM MEDICAL LEAD) RN Note: Formatting of this note is differe nt from the original. Routine Health Management Care Team Patient Care Team: Corrine Vazquez MD as PCP - General ([facility] Medicine) Yossi Potts, RN as Registered Nurse (Diabetes Education) Abbie Ramesh RN as Podiatric Assistant Future Scheduled Appointments No future appointments. Health Maintenance Health Maintenance Topic Date Due Urine Protein Screening 05/31/2020 Lipid Panel 09/05/2020 Glaucoma Screening 67+ Yr 12/25/2020 Ophthalmology Exam 12/25/2020 [facility] Annual Wellness 01/12/2021 Hemoglobin A1C 01/24/2021 Diabetic Foot Exam 03/16/2021 Colorectal Cancer Screening: Colonoscop y 05/21/2021 Fall Risk Performed 06/05/2021 Mammogram 12/03/2021 COVID-19 Vaccine Completed [facility] Pneumococcal Vaccine: <64 Completed [facility] Pneumococcal Vaccine: 65+ Years Com pleted HPV Vaccines Aged Out Notes: Due: Urine Protein screening Eye exam AWV A1C Lipid panel documented as of this encounter Visit Diagnoses Diagnosis Type 2 diabetes mellitus with other spec ified complication, with long-term current use of insulin (HCC) - Primary Stage 3 chronic kidney disease (HCC) documented in this encounter Care Teams Acoustic Warfare Analyst Relationship Specialty Start Date End Date Corrine Vazquez MD PCP - General Family Medicine 07/07/19 08/19/[address] [place] [address] documented as of this encounter
--- OUTSIDE RECORDS SUMMARY | 2021-10-24 10:42 | XMS_ITS | Encounter Summary ---
:1945 Author Organization [facility] Address [address] [place] [address] Care Team Providers Name Role Phone Corrine Vazquez MD Primary Care Provider Encounter Details Date Type Department Care Team Description 09/02/2019 Telephone SE Endocrinology Bacilio Stewart MBBS [address] [place] [address] [place] [address] [phone] (Wo rk) Social History Tobacco Use Types [...] Please contact pt. Telephone Encounter - Alber Tayloron - 09/02/2019 1:13 PM CDT Patient called [...] Peter Ramesh (02/05/2021 Abbie Murray, 11:19 AM BOBBIN COLLECTOR) RN Note: Formatting of this note is differe nt from the original. Routine Health Management Care Team Patient Care Team: Corrine Vazquez MD as PCP - General ([facility] Medicine) Yossi Potts RN as Registered Nurse (Diabetes Education) Abbie Ramesh RN as Oven Heater Future Scheduled Appointments No future appointments. Health Maintenance Health Maintenance Topic Date Due Urine Protein Screening 05/31/2020 Lipid Panel 09/05/2020 Glaucoma Screening 67+ Yr 12/25/2020 Ophthalmology Exam 12/25/2020 [facility] Annual Wellness 01/12/2021 Hemoglobin A1C 01/24/2021 Diabetic Foot Exam 03/16/2021 Colorectal Cancer Screening: Colonoscop y 05/21/2021 Fall Risk Performed 06/05/2021 Mammogram 12/03/2021 COVID-19 Vaccine Completed [facility] Pneumococcal Vaccine: <64 Completed [facility] Pneumococcal Vaccine: 65+ Years Com pleted HPV Vaccines Aged Out Notes: Due: Urine Protein screening Eye exam AWV A1C Lipid panel Diabetes Management General No change (02/05/2021 11:17 AM No Abbie Ramesh, RN BOBBIN COLLECTOR) Note: Formatting of this note is differe [...] on filedocumented in this encounter Care Teams Transplant Rn Relationship Specialty Start Date End Date Corrine Vazquez MD PCP - General Family Medicine 07/07/19 08/19/[address] [place] [address] documented as of this encounter
--- OUTSIDE RECORDS SUMMARY | 2021-10-24 10:42 | XMS_ITS | Encounter Summary ---
:1945 Author Organization [facility] Address [address] [place] [address] Care Team Providers Name Role Phone Corrine Vazquez MD Primary Care Provider Reason for Visit Reason Comments Med Refill Encounter Details Date Type Department Care Team Description 07/20/2019 Refill [place] Corrine Vazquez, Frequency of micturition; [address] [facility] [place] 20 [place] Anemia, unspecified type [place], [place] [address] [place] [address] [place] [address] Social History Tobacco Use Types Packs/Day Years [...] She would like Ferrous Sulfate renewed at [facility] in [place] Telephone Encounter - Kenia Baron - 07/25/2019 3:45 PM CDT Patient returned nurse phone call. Please call [phone]. Telephone Encounter - Vero Interiano RN - 07/25/2019 8:26 AM CDT [email or web address] Telephone Encounter - Corrine Vazquez MD - 07/25/2019 7:51 AM CDT Looks like Marcial is requesting Macrobid for a possible UTI. Please call and review her symptoms andif she qualifies for an antibiotic we could [...] Peter Ramesh (02/05/2021 Abbie Murray, 11:19 AM PHYSIOTHERAPY PRACTICE MANAGER) RN Note: Formatting of this note is differe nt from the original. Routine Health Management Care Team Patient Care Team: Corrine Vazquez MD as [facility] - [facility] Yossi Potts, RN as Registered Nurse (Diabetes Education) Abbie Ramesh RN as Stationary Boiler Fireman Future Scheduled Appointments No future appointments. Health [...] type documented in this encounter Care Teams Scientist Propagator Relationship Specialty Start Date End Date Corrine Vazquez MD PCP - General Family Medicine 07/07/19 08/19/[address] [place] [address] documented as of this encounter
--- OUTSIDE RECORDS SUMMARY | 2021-10-24 10:42 | XMS_ITS | Encounter Summary ---
:1945 Author Organization [facility] Address [address] [place] [address] Care Team Providers Name Role Phone Corrine Vazquez MD Primary Care Provider Encounter Details Date Type Department Care Team Description 08/23/2019 Telephone SE Diabetic Education 2nd Yossi Potts RN Floor [address] [place] [address] [place] [address] [phone] Social History Tobacco Use Types Packs/Day Years [...] some juice and a glucose tablet then at 6AM result was 103), this morning glucose of [...] lows to call me so that we canmake further adjustments to the insulin dose. documented in this encounter Plan of Treatment Not on filedocumented as of this encounter Goals Goal Patient Goal Associated Recent Patient-Stated? Author Type Problems Progress Routine Health General No change No Peter Ramesh (02/05/2021 Abbie Murray, 11:19 AM SECURITY ATTENDANT) RN Note: Formatting of this note is differe nt from the original. Routine Health Management Care Team Patient Care Team: Corrine Vazquez MD as PCP - [facility] ([facility] Yossi Potts RN as Registered Nurse (Diabetes Education) Abbie Ramesh RN as Pre School Manager Future Scheduled Appointments No future appointments. [...] (02/05/2021 11:17 AM No Abbie Ramesh, RN SECURITY ATTENDANT) Note: Formatting of this note is differe [...] on filedocumented in this encounter Care Teams Telephone Quotation Clerk Relationship Specialty Start Date End Date Corrine Vazquez MD PCP - General Family Medicine 07/07/19 08/19/[address] [place] [address] documented as of this encounter
--- OUTSIDE RECORDS SUMMARY | 2021-10-24 10:42 | XMS_ITS | Encounter Summary ---
:1945 Author Organization [facility] Address [address] [place] [address] Care Team Providers Name Role Phone Corrine Vazquez MD Primary Care Provider Reason for Visit Consultation (Routine) - Closed Specialty Diagnoses / Procedures Referred By Contact Refer red To Contact Diagnoses Medicare annual wellness visit, initial Corrine Vazquez MD Care Coordination [address] [place], [place] [phone] Referral ID Status Reason Start Date Expiration Date Visits V isits Requested Authorized [id number] Closed Specialty 12/23/2018 99 99 Services Required Encounter Details Date Type Department Care Team Description 11/10/2019 Patient Outreach Care Coordination Angie Bynum, Counseling and coordination of care (Primary Dx); [address] [place] [address] RN Type 2 diabetes mellitus with other spec ified complication, with long-term current use of insulin (HCC); [address] Mixed hyperlipidemia; [phone] Stage 3 chronic kidney disease, unspecif ied whether stage 3a or 3b CKD (HCC) [place] [address] Social History Tobacco Use Types Packs/Day Years [...] No 12/23/2018 organizations such as taoist groups, [employer], [employer] or athletic groups, or school groups? How [...] has an apt for a Mammogram in [place] next month. ?? Pt plans to have [...] [place] Annual Wellness 12/24/2019 ??? Urine Protein Screening [...] Peter Ramesh (02/05/2021 Abbie Murray, 11:19 AM CEO & FOUNDER) RN Note: Formatting of this note is differe nt from the original. Routine Health Management Care Team Patient Care Team: Corrine Vazquez MD as PCP - General ([facility] Medicine) Yossi Potts, RN as Registered Nurse (Diabetes Education) Abbie Ramesh, ERA as Er Nurse Future Scheduled Appointments No future appointments. Health [...] change (02/05/2021 11:17 AM Abbie Monzon, RN CEO & FOUNDER) Note: Formatting of this note is differe [...] (HCC) documented in this encounter Care Teams Agriculture Internship Relationship Specialty Start Date End Date Corrine Vazquez MD PCP - General Family Medicine 07/07/19 08/19/[address] [place] [address] documented as of this encounter
--- OUTSIDE RECORDS SUMMARY | 2021-10-24 10:42 | XMS_ITS | Encounter Summary ---
:1945 Author Organization [facility] Address [address] [place] [address] Care Team Providers Name Role Phone Corrine Vazquez MD Primary Care Provider Reason for Visit Reason Onset Date Comments Medication cost 07/22/2019 Encounter Details Date Type Department Care Team Description 07/22/2019 Telephone Endocrinology Bacilio Stewart MBBS Medication cost [address] 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 Routine Health Management Care Team Patient Care Team: Corrine Vazquez MD as PCP - General ([facility]) Yossi Potts, RN as Registered Nurse (Diabetes Education) Abbie Ramesh RN as Custodial Services Manager Future Scheduled Appointments No future appointments. Health Maintenance Health Maintenance Topic Date Due Urine Protein Screening 05/31/2020 Lipid Panel 09/05/2020 Glaucoma Screening 67+ Yr 12/25/2020 Ophthalmology Exam 12/25/2020 [facility] Annual Wellness 01/12/2021 Hemoglobin A1C 01/24/2021 Diabetic Foot Exam 03/16/2021 Colorectal Cancer Screening: Colonoscop y 05/21/2021 Fall Risk Performed 06/05/2021 Mammogram 12/03/2021 COVID-19 Vaccine Completed [facility] Pneumococcal Vaccine: <64 Completed [facility] Pneumococcal Vaccine: 65+ Years Com pleted HPV Vaccines Aged Out Notes: Due: Urine Protein screening Eye exam AWV A1C Lipid panel documented as of this encounter Visit Diagnoses Not on filedocumented in this encounter Care Teams Title Attorney Relationship Specialty Start Date End Date Corrine Vazquez MD PCP - General Family Medicine 07/07/19 08/19/[address] [place] [address] documented as of this encounter
--- OUTSIDE RECORDS SUMMARY | 2021-10-24 10:42 | XMS_ITS | Encounter Summary ---
:1945 Author Organization [facility] Address [address] [place] [address] Care Team Providers Name Role Phone Corrine Vazquez MD Primary Care Provider Reason for Visit Consultation (Routine) - Closed Specialty Diagnoses / Procedures Referred By Contact Refer red To Contact Diagnoses Medicare annual wellness visit, initial Corrine Vazquez MD Care Coordination [address] [place], [place] [phone] Referral ID Status Reason Start Date Expiration Date Visits V isits Requested Authorized [id number] Closed Specialty 12/23/2018 99 99 Services Required Encounter Details Date Type Department Care Team Description 08/26/2019 Patient Outreach SE Care Abbie Ramesh and coordination of care (Primary Dx); Aldo Murray, RN Type 2 diabetes mellitus with other spec ified complication, with long-term current use of insulin (HCC); [address] [facility] [address] Rheumatoid arthritis, involv ing unspecified site, unspecified rheumatoid factor presence ([facility] [place]); [place] [address] [facility] Rheumatoid arthritis, involving unspecif ied site, unspecified whether rheumatoid factor present ([facility]); [phone] [place], [place] Mixed hyperlip idemia [address] Social History [...] Coordination Discussion Date: 08/26/2019 3:12 PM Completed [facility] monthly follow up with Marcial She continues to work towards previously set goals. Today's discussion: ??? Reviewed medication list and the need for refills ??? Diabetes: has been having a lot of lows in the executive vice president. This AM at 0500, reading was 66 [...] 12/18/2019 ??? Fall Risk Performed 12/24/2019 ??? [facility] Annual Wellness 12/24/2019 ??? Lipid Panel 03/17/2020 [...] 09/12/2019 10:00 AM JOSE DE JESUS [facility] Yossi Potts RN - 08/26/2019 2:20 PM [...] Peter Monzon (02/05/2021 Abbie Murray, 11:19 AM WASTE PAPER HAMMERMILL OPERATOR) RN Note: Formatting of this note is differe nt from the original. Routine Health Management Care Team Patient Care Team: Corrine Vazquez MD as PCP - [facility] Yossi Potts RN as Registered Nurse (Diabetes Education) Abbie Ramesh RN as Shipbuilding Draftsperson Future Scheduled Appointments No future appointments. Health [...] [facility] [place] Pneumococcal Vaccine: <64 Completed [facility] Pneumococcal Vaccine: 65+ Years Com pleted HPV Vaccines Aged Out Notes: Due: Urine Protein screening Eye exam AWV A1C Lipid panel Diabetes Management General No change (02/05/2021 11:17 AM Abbie Monzon, RN WASTE PAPER HAMMERMILL OPERATOR) Note: Formatting of this note is [...] hyperlipidemia documented in this encounter Care Teams Warehouse Technician Relationship Specialty Start Date End Date Corrine Vazquez MD PCP - General Family Medicine 07/07/19 08/19/[address] [place] [address] documented as of this encounter
--- OUTSIDE RECORDS SUMMARY | 2021-10-24 10:42 | XMS_ITS | Encounter Summary ---
:1945 Author Organization [facility] Address [address] [place] [address] Care Team Providers Name Role Phone Corrine Vazquez MD Primary Care Provider Encounter Details Date Type Department Care Team Description 08/27/2019 Orders Only [place] Corrine Vazquez MD [address] [place], [place] [address] [place], [place] [phone] (Wo rk) Social History Tobacco Use Types [...] Domitila, Management (02/05/2021 Abbie Murray, 11:19 AM CORE MEASURES ABSTRACTOR) RN Note: Formatting of this note is differe nt from the original. Routine Health Management Care Team Patient Care Team: Corrine Vazquez MD as PCP - General ([facility] Medicine) Yossi Potts, RN as Registered Nurse (Diabetes Education) Abbie Ramesh, ERA as Cognos Lead Future Scheduled Appointments No future appointments. Health Maintenance Health Maintenance Topic Date Due Urine Protein Screening 05/31/2020 Lipid Panel 09/05/2020 Glaucoma Screening 67+ Yr 12/25/2020 Ophthalmology Exam 12/25/2020 [facility] Annual Wellness 01/12/2021 Hemoglobin A1C 01/24/2021 Diabetic Foot Exam 03/16/2021 Colorectal Cancer Screening: Colonoscop y 05/21/2021 Fall Risk Performed 06/05/2021 Mammogram 12/03/2021 COVID-19 Vaccine Completed [facility] Pneumococcal Vaccine: <64 Completed [facility] Pneumococcal Vaccine: 65+ Years Com pleted HPV Vaccines Aged Out Notes: Due: Urine Protein screening Eye exam AWV A1C Lipid panel Diabetes Management General No change (02/05/2021 11:17 AM No Abbie Ramesh, RN CORE MEASURES ABSTRACTOR) Note: Formatting of this note is differe nt from the original. Diabetes Management Type 2 diabetes mellitus with other spec ified complication (HCC) Managed by (PCP or Endocrinology) Dr. Vzaquez (PCP ) Home Glucose tracking 1-3 times [...] on filedocumented in this encounter Care Teams Addiction Medicine Physician Relationship Specialty Start Date End Date Corrine Vazquez MD PCP - General Family Medicine 07/07/19 08/19/[address] [place] [address] documented as of this encounter
--- OUTSIDE RECORDS SUMMARY | 2021-10-24 10:42 | XMS_ITS | Encounter Summary ---
:1945 Author Organization Address [address] [place] [address] Care Team Providers Name Role Phone Corrine Vazquez MD Primary Care Provider Reason for Visit Reason Onset Date Comments RX 08/24/2019 Encounter Details Date Type Department Care Team Description 08/24/2019 Telephone [place] Corrine Vazquez MD RX [address] [place], [place] [address] [place], [place] [phone] (Wo rk) Social History Tobacco Use Types [...] this is too expensive she should not order picker but then let us know. She should not take any more tetracycline Telephone Encounter - Margareth Sanchez RN - 08/24/2019 12:16 PM CDT Patient is taking Tetracycline and she reports having diarrhea since starting this medication. The pharmacy was only able to fill 1/2 the Rx. She needs to order picker the second half today and she questions [...] effects of Tetracycline. Please call her at [phone]. documented in this encounter Plan of Treatment Not on filedocumented as of this encounter Goals Goal Patient Goal Associated Recent Patient-Stated? Author Type Problems Progress Routine Health General No change No Peter Ramesh (02/05/2021 Abbie Murray, 11:19 AM CONVEYOR OPERATOR) RN Note: Formatting of this note is differe nt from the original. Routine Health Management Care Team Patient Care Team: Corrine Vazquez MD as PCP - [facility] Yossi Potts, RN as Registered Nurse (Diabetes Education) Abbie Ramesh, ERA as Buttonhole Maker Hand Future Scheduled Appointments No future appointments. [...] documented in this encounter Care Teams Manager Diesel Relationship Specialty Start Date End Date Corrine Vazquez MD PCP - General Family Medicine 07/07/19 08/19/[address] [place] [address] documented as of this encounter
--- OUTSIDE RECORDS SUMMARY | 2021-10-24 10:42 | XMS_ITS | Encounter Summary ---
:1945 Author Organization [facility] Address [address] [place] [address] Care Team Providers Name Role Phone Corrine Vazquez MD Primary Care Provider Reason for Visit Reason Onset Date Comments Diabetes 09/06/2019 Encounter Details Date Type Department Care Team Description 09/06/2019 Telephone [place] Corrine Vazquez MD Diabetes [address] [place], [place] [address] [place], [place] [phone] (Wo rk) Social History Tobacco Use Types [...] 12/23/2018 organizations such as sikh groups, unions, fraternal or athletic groups, or [...] Encounter - Corrine Vazquez MD - 09/06/2019 3:47 PM CDT [...] for her. Since these current lab tests wereordered by Dr. Stewart he will get these [...] you could call the [facility]o Clinic at [facility] [place] and let them know that secondary to travel and distance Marcial willbe following up with us in our clinic and we will contact Dr. Stewart for advice or as needed refer back down to him for his expertise as needed. Telephone Encounter - Margareth Sanchez RN - 09/06/2019 8:31 AM CDT Please review request. Telephone Encounter - Hali Cormier MA - 09/06/2019 8:21 AM CDT Patient came in for lab work today and is wondering if Dr. Vazquez can watch over my diabetes instead of going to [place]. Also patient would like her lab results from today mailed to her when they return. documented in this encounter Plan of Treatment Not on filedocumented as of this encounter Goals Goal Patient Goal Associated Recent Patient-Stated? Author Type Problems Progress Routine Health General No change Peter Monzon (02/05/2021 Abbie Murray, 11:19 AM GEOTHERMAL ELECTRICAL ENGINEER) RN Note: Formatting of this note is differe nt from the original. Routine Health Management Care Team Patient Care Team: Corrine Vazquez MD as PCP - General ([facility] Medicine) Yossi Potts RN as Registered Nurse (Diabetes Education) Abbie Ramesh RN as Neonatal Nurse Future Scheduled Appointments No future appointments. Health Maintenance Health Maintenance Topic Date Due Urine Protein Screening 05/31/2020 Lipid Panel 09/05/2020 Glaucoma Screening 67+ Yr 12/25/2020 Ophthalmology Exam 12/25/2020 [facility] [place] Annual Wellness 01/12/2021 Hemoglobin [...] change (02/05/2021 11:17 AM Abbie Monzon, RN GEOTHERMAL ELECTRICAL ENGINEER) Note: Formatting of this note is [...] on filedocumented in this encounter Care Teams Guide Dog Instructor Relationship Specialty Start Date End Date Corrine Vazquez MD PCP - General Family Medicine 07/07/19 08/19/[address] [place] [address] documented as of this encounter
--- OUTSIDE RECORDS SUMMARY | 2021-10-24 10:42 | XMS_ITS | Encounter Summary ---
:1945 Author Organization [facility] Address [address] [place] [address] Care Team Providers Name Role Phone Corrine Vazquez MD Primary Care Provider Encounter Details Date Type Department Care Team Description 09/06/2019 Orders Only [place] Corrine Vazquez MD [address] [place], [place] [address] [place], [place] [phone] (Wo rk) Social History Tobacco Use Types [...] Domitila, Management (02/05/2021 Abbie Murray, 11:19 AM STRIKE PLATE ATTACHER) RN Note: Formatting of this note is differe nt from the original. Routine Health Management Care Team Patient Care Team: Corrine Vazquez MD as PCP - General ([facility] Medicine) Yossi Potts, RN as Registered Nurse (Diabetes Education) Abbie Ramesh, ERA as Shed Workers Supervisor Future Scheduled Appointments No future appointments. [...] (02/05/2021 11:17 AM No Abbie Ramesh, RN STRIKE PLATE ATTACHER) Note: Formatting of this note is differe [...] on filedocumented in this encounter Care Teams Registered Nurse Renal Relationship Specialty Start Date End Date Corrine Vazquez MD PCP - General Family Medicine 07/07/19 08/19/[address] [place] [address] documented as of this encounter
--- OUTSIDE RECORDS SUMMARY | 2021-10-24 10:43 | XMS_ITS | Encounter Summary ---
:1945 Author Organization [facility] Address [address] [place] [address] Care Team Providers Name Role Phone Corrine Vazquez MD Primary Care Provider Reason for Visit Consultation (Routine) - Closed Specialty Diagnoses / Procedures Referred By Contact Refer red To Contact Diagnoses Medicare annual wellness visit, initial Corrine Vazquez MD Care Coordination [address] [place], [place] [phone] Referral ID Status Reason Start Date Expiration Date Visits V isits Requested Authorized [id number] Closed Specialty 12/23/2018 99 99 Services Required Encounter Details Date Type Department Care Team Description 07/06/2019 Patient Outreach SE Care Coordination Abbie Ramesh Counseling and coordination of care (Primary Dx); [address] [facility] Terri RN Type 2 diabetes mellitus with other spec ified complication, with long-term current use of insulin ([facility]); [place] [address] [address] Rheumatoid arthritis, involv ing unspecified site, unspecified rheumatoid factor presence ([facility]); [phone] [facility] Rheumatoid arthritis, involving unspecif ied site, unspecified whether rheumatoid factor present ([facility]) [place] [address] Social History Tobacco Use Types [...] 09/12/2019 10:00 AM JOSE DE JESUS [facility] Result Component ? ? Hemoglobin A1c < 7.0 8.5 8.8 8.0 Patient will work towards decreasing A1c to 7 within 3 months (Sep 2019) (8.2 05/31/19) a.) Patient will check A1C every three months (Should be less than 7.0) b.) Patient will check blood glucose 2 times daily and report to team primary care physician weekly c.) Patient will take medication as [...] Peter Monzon (02/05/2021 Abbie Murray, 11:19 AM HEAD WAITER) RN Note: Formatting of this note is differe nt from the original. Routine Health Management Care Team Patient Care Team: Corrine Vazquez MD as PCP - General ([facility]) Yossi Potts, RN as Registered Nurse (Diabetes Education) Abbie Ramesh, RN as Security Specialist Future Scheduled Appointments No future appointments. [...] 11:17 AM No Abbie Ramesh, RN HEAD WAITER) Note: Formatting of this note is differe [...] (HCC) documented in this encounter Care Teams Tapper Bit Relationship Specialty Start Date End Date Corrine Vazquez MD PCP - General Family Medicine 07/07/19 08/19/21 [address] [facility] [address] [place] [address] documented as of this encounter
--- OUTSIDE RECORDS SUMMARY | 2021-10-24 10:43 | XMS_ITS | Encounter Summary ---
:1945 Author Organization [facility] Address [address] [place] [address] Care Team Providers Name Role Phone Adriane Patel Ronak SALES OPERATIONS, SALES SECRETARY Primary Care Provider [phone] Encounter Details Date Type Department Care Team Description 03/01/2019 Lab [place] Type 2 diabetes mellitus wit h [address] other specified complication , [place] [id number] without long-term current us e [phone] of insulin (HCC ) Social History Tobacco [...] Ramesh Management (02/05/2021 Abbie Murray, 11:19 AM GARNISHER) RN Note: Formatting of this note is differe nt from the original. Routine Health Management Care Team Patient Care Team: Corrine Vazquez MD as PCP - General ([facility] Medicine) Yossi Potts, RN as Registered Nurse (Diabetes Education) Abbie Ramesh, ERA as Reconciler Future Scheduled Appointments No future appointments. Health [...] [facility] Pneumococcal Vaccine: <64 Completed [facility] Pneumococcal Vaccine: 65+ Years Com pleted HPV Vaccines Aged Out Notes: Due: Urine Protein screening Eye exam AWV A1C Lipid panel documented as of this encounter Procedures Procedure Name Priority Date/Time Associated Diagnosis Comme nts HEMOGLOBIN A1C Routine 03/01/2019 11:39 AM Type 2 diabetes Res ults for this GARNISHER mellitus with other procedur e are in the specified results section . complication, without long-term current use of insulin (HCC) documented in this encounter Results (ABNORMAL) Hemoglobin A1c (03/01/2019 11:[address] [facility]) Analysis Performed At Patho logist Time Signature Hemoglobin A1C 8.8 (H) 4.0 - 5.6 03/02/2019 [place] % A1C 1:[address] [facility] Comment: Reference [...] Volume Laterality Blood 03/01/2019 11:39 03/02/2019 AM GARNISHER 12:55 PM GARNISHER Bacilio DELA [facility] LAB BLOOD ORDERABLES Performing Organization Address City/State/ZIP Code Phon e Number [facility] [address] [place] [address] documented in this encounter Visit Diagnoses Diagnosis Type 2 diabetes mellitus with other spec ified complication, without long-term current use of insulin (HCC) documented in this encounter Care Teams Cashier Ticket Selling Relationship Specialty Start Date End Date Adriane Patel, SALES OPERATIONS, SALES SECRETARY PCP - General 09/22/17 07/06/[address] [place] [id number] documented as of this encounter
--- OUTSIDE RECORDS SUMMARY | 2021-10-24 10:43 | XMS_ITS | Encounter Summary ---
:1945 Author Organization [facility] Address [address] [place] [address] Care Team Providers Name Role Phone Adriane Patel BALLISTICS PROFESSOR, VISITOR SERVICES TECHNICIAN Primary Care Provider [phone] Reason for Visit Reason Comments Med Refill Encounter Details Date Type Department Care Team Description 04/12/2019 Refill [place] Adriane Patel, Mixed hyperlipidemia [address] LEONARD RESENDEZ (Primary Dx) [place], [place] [address] [address] [facility] [phone], [place] [address] Social History Tobacco Use [...] half tablet once daily (2.5mg per day) PAINTING MACHINE OPERATOR Telephone Encounter - Ifeoma Parikh LPN - [...] advise pharmacy on refill request. Thank you PAINTING MACHINE OPERATOR documented in this encounter Plan of Treatment Not on filedocumented as of this encounter Goals Goal Patient Goal Associated Recent Patient-Stated? Author Type Problems Progress Routine Health General No change Peter Monzon (02/05/2021 Abbie Murray, 11:19 AM LINE PAINTING MACHINE OPERATOR) RN Note: Formatting of this note is differe nt from the original. Routine Health Management Care Team Patient Care Team: Corrine Vazquez MD as PCP - [facility] Yossi Potts, RN as Registered Nurse (Diabetes Education) Abbie Ramesh RN as Inventory Technician Future Scheduled Appointments No future appointments. Health Maintenance Health Maintenance Topic Date Due Urine Protein Screening 05/31/2020 Lipid Panel 09/05/2020 Glaucoma Screening 67+ Yr 12/25/2020 Ophthalmology Exam 12/25/2020 [facility] Annual Wellness 01/12/2021 Hemoglobin A1C 01/24/2021 Diabetic Foot Exam 03/16/2021 Colorectal Cancer Screening: Colonoscop y 05/21/2021 Fall Risk Performed 06/05/2021 Mammogram 12/03/2021 COVID-[address] [facility] [place] Pneumococcal Vaccine: <64 Completed [facility] Pneumococcal Vaccine: 65+ Years Com pleted HPV Vaccines Aged Out Notes: Due: Urine Protein screening Eye exam AWV A1C Lipid panel documented as of this encounter Visit Diagnoses Diagnosis Mixed hyperlipidemia - Primary documented in this encounter Care Teams Cold Roll Operator Relationship Specialty Start Date End Date Adriane Patel APRN, VISITOR SERVICES TECHNICIAN PCP - General 09/22/17 07/06/19 [address] [facility] [place] [address] documented as of this encounter
--- OUTSIDE RECORDS SUMMARY | 2021-10-24 10:43 | XMS_ITS | Encounter Summary ---
:1945 Author Organization [facility] Address [address] [place] [address] Care Team Providers Name Role Phone Adriane Patel Ronak RUDDN, MOBILE ARCHITECT Primary Care Provider [phone] Encounter Details Date Type Department Care Team Description 01/05/2019 Patient Outreach SE Care Coordination Abbie Ramesh, [address] [place] [address] [place] [address] [place] [address] Social History Tobacco Use Types [...] 1. Blood sugar numbers 2. Bladder infection EMIC COMPUTING DIRECTOR documented in this encounter Plan of Treatment Not on filedocumented as of this encounter Goals Goal Patient Goal Associated Recent Patient-Stated? Author Type Problems Progress Routine Health General No change No Peter Ramesh (02/05/2021 Abbie Murray, 11:19 AM ACADEMIC COMPUTING DIRECTOR) RN Note: Formatting of this note is differe nt from the original. Routine Health Management Care Team Patient Care Team: Corrine Vazquez MD as PCP - General ([facility] Medicine) Yossi Potts, RN as Registered Nurse (Diabetes Education) Abbie Ramesh, RN as Fishing Tool Operator Future Scheduled Appointments No future appointments. [...] [facility] [place] Pneumococcal Vaccine: <64 Completed [facility] Pneumococcal Vaccine: 65+ Years Com pleted HPV Vaccines Aged Out Notes: Due: Urine Protein screening Eye exam AWV A1C Lipid panel documented as of this encounter Visit Diagnoses Not on filedocumented in this encounter Care Teams Tool Die Maker Relationship Specialty Start Date End Date Adriane Patel, BUSINESS ANALYST CONSULTANT, MOBILE ARCHITECT PCP - General 09/22/17 07/06/19 [address] [place] [address] documented as of this encounter
--- OUTSIDE RECORDS SUMMARY | 2021-10-24 10:43 | XMS_ITS | Encounter Summary ---
:1945 Author Organization [facility] Address [address] [place] [address] Care Team Providers Name Role Phone Corrine Vazquez MD Primary Care Provider Reason for Visit Reason Comments Med Refill Encounter Details Date Type Department Care Team Description 07/14/2019 Refill SE Endocrinology StewartPengd, Type 2 diabetes mellitus [address] MBBS with hyperglycemia, [place] [address] [address] unspecified whether long [phone] [place], [place] term insulin [facility] [place]) [id number] (Primary Dx) Social History Tobacco Use Types [...] encounter Miscellaneous Notes Telephone Encounter - Ifeoma Parikh LPN - 07/18/2019 1:19 PM CDT Last visit [...] Domitila, Management (02/05/2021 Abbie Murray, 11:19 AM READING ASSISTANT) RN Note: Formatting of this note is differe nt from the original. Routine Health Management Care Team Patient Care Team: Corrine Vazquez MD as PCP - General ([facility]) Yossi Potts, RN as Registered Nurse (Diabetes Education) Abbie Ramesh RN as Rn Clinical Future Scheduled Appointments No future appointments. Health [...] diabetes mellitus with hyperglyce luis, unspecified whether senior living insulin use (HCC) - Primary documented in this encounter Care Teams Senior Materials Planner Relationship Specialty Start Date End Date Corrine Vazquez MD PCP - General Family Medicine 07/07/19 08/19/[address] [place] [address] documented as of this encounter
--- OUTSIDE RECORDS SUMMARY | 2021-10-24 10:43 | XMS_ITS | Encounter Summary ---
:[address] [facility] Address [address] [place] [address] Care Team Providers Name Role Phone Adriane Patel Ronak MANAGER ELIGIBILITY, BRIDGE ENGINEER Primary Care Provider [phone] Encounter Details Date Type Department Care Team Description 12/25/2018 Orders Only [place] Corrine Vazquez MD [address] [facility] [address] [place], [place] [address] [place], [place] [phone] (Wo rk) Social History Tobacco Use Types [...] Domitila, Management (02/05/2021 Abbie Murray, 11:19 AM BACKSHOE PERSON) RN Note: Formatting of this note is differe nt from the original. Routine Health Management Care Team Patient Care Team: Corrine Vazquez MD as [facility]CP - [facility] Yossi Potts, RN as Registered Nurse (Diabetes Education) Abbie Ramesh RN as Safety Administrator Future Scheduled Appointments No future appointments. [...] on filedocumented in this encounter Care Teams Juice Scaleman Relationship Specialty Start Date End Date Adriane Patel, MANAGER ELIGIBILITY, BRIDGE ENGINEER PCP - General 09/22/17 07/06/19 [address] [place] [address] documented as of this encounter
--- OUTSIDE RECORDS SUMMARY | 2021-10-24 10:43 | XMS_ITS | Encounter Summary ---
:1945 Author Organization [facility] Address [address] [place] [address] Care Team Providers Name Role Phone Adriane Patel Ronak RESEARCH PHARMACIST, THREE KNIFE TRIMMER Primary Care Provider [phone] Reason for Visit Reason Comments Diabetes Encounter Details Date Type Department Care Team Description 06/13/2019 [facility] SE Endocrinology Bacilio Stewart, Type 2 diabetes mellitus wit h other specified complication, with long-term current use of insulin (HCC) (Primary Dx); [address] [facility] MBBS Mixed hyperlipidemia; [place] [address] [address] [facility] Stage 3 chronic kidney disease (HCC); [phone] [place], [place] Essential hype rtension; [address] Pain of upper abdomen Social History Tobacco [...] water are unavailable, please use alcohol-based hand practice managers. Cover your coughs and sneezes with a [...] 06/13/19 Primary care provider: Adriane Patel APRN, THREE KNIFE TRIMMER Reason for visit: Marcial Adams is a [...] 14 units about a week ago. Our life educator, Denny Potts, has been [...] Last eye exam showed no retinopathy in [place]. Dorsal aspectof toes hurts sometimes. Denies any [...] More than three times a week Attends restorationist service: More than 4 times per year [...] was 35 minutes. Bacilio Stewart MD Staff Refinery Operator Assistant documented in this encounter Plan of Treatment Not on filedocumented as of this encounter Goals Goal Patient Goal Associated Recent Patient-Stated? Author Type Problems Progress Routine Health General No change No Doimtila, Management (02/05/2021 Abbie Murray, 11:19 AM NEUROLOGICAL PHYSIOTHERAPIST) RN Note: Formatting of this note is differe nt from the original. Routine Health Management Care Team Patient Care Team: Corrine Vazquez MD as PCP - General ([facility] Medicine) Yossi Potts, RN as Registered Nurse (Diabetes Education) Abbie Ramesh, ERA as Debone Processing Supervisor Future Scheduled Appointments No future appointments. [...] Signature Cholesterol 183 0 - 199 09/06/2019 [facility] mg/dL 3:[address] [facility] Comment: Recommended by National Cholesterol Education Program (ATP III) -------- Cholesterol Ranges -------- <200 ? Desirable 200-239 ? Borderline high >=240 ? High Triglycerides 234 (A) 0 - 149 mg/dL 09/06/2019 3:02 PM T [facility] Comment: -------- TRIG Ranges -------- <150 ?Normal 150-199 ? Borderline high 200-499 ? High >=500 ? Very high HDL 37 (A) 40 - 60 mg/dL 09/06/2019 3:02 PM T [facility] Comment: -------- HDL Ranges -------- <40 ?Low 40-59 ?Normal >=60 ? Optimal LDL Calculated 99 0 - 99 mg/dL 09/06/2019 3:02 PM CDT [facility] Comment: -------- LDL Ranges -------- <100 ? Optimal 100-129 ?Near optimal/above op timal 130-159 ?Borderline high 160-189 ?High >=190 ?Very high Fasting? Yes 09/06/2019 8:20 AM CDT [facility] Specimen Anatomical Collection Method Collection Time Receive d Time (Source) Location / / Volume Laterality Blood 09/06/2019 8:08 AM 0 1:16 CDT PM CDT Bacilio SETHI LAB BLOOD ORDERABLES Performing Organization Address City/State/ZIP Code Phon e Number [facility] [address] [place] [address] (ABNORMAL) Hemoglobin A1c (09/06/2019 8:08 AM CDT) Analysis Performed At Patho logist Time Signature Hemoglobin A1C 8.3 (H) 4.0 - 5.6 09/06/2019 [place] % A1C 2:39 PM CDT [facility] Comment: Reference Range 4.0-5.6% is [...] 0 1:16 CDT PM CDT Bacilio Stewart [facility] BLOOD ORDERABLES Performing Organization Address City/State/ZIP Code Phon e Number [facility] [address] [place] [address] (ABNORMAL) Basic metabolic panel (09/06/2019 8:08 AM CDT) P athologist Signature Sodium 139 135 - 145 09/06/2019 [facility] mmol/L 8:31 AM CDT [place] Potassium 4.0 3.5 - 5.1 09/06/2019 [facility] mmol/L 8:31 AM CDT [place] Comment: . Chloride 103 98 - 107 mmol/L 09/06/2019 8:31 AM CDT [facility] [place] Comment: . CO2 28 22 - 29 mmol/L 09/06/2019 8:31 AM CDT [facility] [place] Comment: . Creatinine 1.4 (H) 0.4 - 1.2 mg/dL 09/06/2019 8:31 AM CDT [facility] [place] Comment: . BUN 28 (H) 5 - 25 mg/dL 09/06/2019 8:31 AM CDT [facility] [place] Comment: . Glucose 157 (H) 70 - 100 mg/dL 09/06/2019 8:31 AM CDT [facility] [place] Calcium, Total,S 9.7 8.4 - 10.2 mg/dL 09/06/2019 8:31 AM CDT [facility] [place] Comment: . Specimen Anatomical Collection Method Collection Time Receive d Time (Source) Location / / Volume Laterality Blood 09/06/2019 8:08 AM 0 8:20 CDT AM CDT Bacilio Stewart [facility] BLOOD ORDERABLES Performing Organization Address City/[facility]/ZIP Code Phon e Number [facility] [place] [address] [place] [address] (ABNORMAL) Liver panel (09/06/2019 8:08 AM CDT) Analysis Performed At Patho logist Time Signature Total Protein 7.6 6.3 - 8.2 09/06/2019 [facility] g/dL 3:02 PM CDT [facility] Albumin, Serum 4.0 3.5 - 5.0 09/06/2019 [facility] g/dL 3:02 PM CDT [facility] Total Bilirubin <0.7 0.1 - 1.0 09/06/2019 [facility] mg/dL 3:02 PM [facility] Bilirubin, <0.1 0.0 - 0.3 09/06/2019 [facility] Direct mg/dL 3:02 PM [facility] AST 28 8 - 43 U/L 09/06/2019 [place] 3:02 PM [facility] Alkaline 99 38 - 128 09/06/2019 [place] Phosphatase U/L 3:02 PM [facility] ALT (SGPT) 52 (H) 0 - 34 U/L 09/06/2019 [place] 3:02 PM [facility] Specimen Anatomical Collection Method Collection Time Receive d Time (Source) Location / / Volume Laterality Blood 09/06/2019 8:08 AM 0 1:16 CDT PM CDT Bacilio [facility] LAB BLOOD ORDERABLES Performing Organization Address City/State/ZIP Code Phon e Number [facility] [address] [place] [address] documented in this encounter Visit Diagnoses Diagnosis Type 2 diabetes mellitus with other spec ified complication, with long-term current use of insulin (HCC) - Primary Mixed hyperlipidemia Stage 3 chronic kidney disease (HCC) Essential hypertension Unspecified essential hypertension Pain of upper abdomen documented in this encounter Care Teams Gauge Machine Operator Relationship Specialty Start Date End Date Adriane Patel APRN, THREE KNIFE TRIMMER PCP - General 09/22/17 07/06/19 [address] [place] [address] documented as of this encounter
--- OUTSIDE RECORDS SUMMARY | 2021-10-24 10:43 | XMS_ITS | Encounter Summary ---
:[address] [facility] Address [address] [place] [address] Care Team Providers Name Role Phone Adriane Patel HUMAN RESOURCES RECEPTIONIST, NURSERY LABORER Primary Care Provider Encounter Details Date Type Department Care Team Description 06/22/2019 Refill [place] Adriane Patel, Hypothyroidism, [address] HUMAN RESOURCES RECEPTIONIST, NURSERY LABORER unspecified type Chuckie [place] [address] [address] [facility] [address] [phone] [place], [place] [address] Social History Tobacco Use [...] have her do at this time. Any questionslet me know. Telephone Encounter - Margareth Sanchez [...] take 2.5mg they are hard to cut in half and she wanted to know if she could take one tablet every other day if she is in fact to take 2.5mg daily. Telephone Encounter - Margareth Sanchez RN - 06/22/2019 9:36 AM CDT Please review medication request. Telephone Encounter - Mely Aviles - 06/22/2019 9:25 AM CDT Please refill to [facility]. documented in this encounter Plan of Treatment Not on filedocumented as of this encounter Goals Goal Patient Goal Associated Recent Patient-Stated? Author Type Problems Progress Routine Health General No change No Domitila, Management (02/05/2021 Abbie Murray, 11:19 AM NUTRITION COUNSELOR) RN Note: Formatting of this note is differe nt from the original. Routine Health Management Care Team Patient Care Team: Corrine Vazquez MD as [facility]CP - [facility] Yossi Potts, RN as Registered Nurse (Diabetes Education) Abbie Ramesh, ERA as Architectural Job Captain Future Scheduled Appointments No future appointments. Health [...] type documented in this encounter Care Teams Strategic Partnership Manager Relationship Specialty Start Date End Date Adriane Patel, HUMAN RESOURCES RECEPTIONIST, NURSERY LABORER PCP - General 09/22/17 07/06/19 [address] [place] [address] documented as of this encounter
--- OUTSIDE RECORDS SUMMARY | 2021-10-24 10:43 | XMS_ITS | Encounter Summary ---
:1945 Author Organization [facility] Address [address] [place] [address] Care Team Providers Name Role Phone Adriane Patel Ronak NATIONAL SALES, WOOD FLOUR MILLER Primary Care Provider [phone] Reason for Visit Reason Comments Female Dysuria Encounter Details Date Type Department Care Team Description 12/23/2018 Office Visit [place] Corrine Herrera Frequency of micturition (Pr imary Dx); [address] MD [place] Raynaud's disease without gangrene [place], [place] [address] [facility] [address] [place] [address] Social History Tobacco Use Types Packs/Day Years [...] Comments Blood Pressure 152/82 12/23/2018 9:04 AM CONTINGENTS SUPERVISOR Pulse 72 12/23/2018 9:04 AM CONTINGENTS SUPERVISOR Temperature 36.1 ??C (97 ??F) 12/23/2018 9:04 AM CONTINGENTS SUPERVISOR Respiratory Rate 12 12/23/2018 9:04 AM CONTINGENTS SUPERVISOR Oxygen Saturation - - Inhaled Oxygen Concentration - - Weight 83.2 kg (183 lb 8 oz) 12/23/2018 9:04 AM CONTINGENTS SUPERVISOR Height - - Body Mass Index 31.91 [...] may be a little frequency but more importantly a little bit of burn or irritation with [...] history of rheumatoid arthritis she sees a multiple spindle router operator once a month for thisfor her infusions and we have asked her to discuss with the multiple spindle router operator the potential that she has Raynaud's which I suspect she does in the treatment for that is usually verapamil and if this is confirmed from the multiple spindle router operator we could certainly start her on the [...] in discussion of the above 2 concerns. INGENTS SUPERVISOR documented in this encounter Miscellaneous Notes Addendum Note - Corrine Herrera MD - 12/23/2018 9:00 AM CONTINGENTS SUPERVISOR Addended by: Corrine HERRERA on: 12/25/2018 10:03 AM Modules accepted: Orders INGENTS SUPERVISOR documented in this encounter Plan of Treatment Not on filedocumented as of this encounter Goals Goal Patient Goal Associated Recent Patient-Stated? Author Type Problems Progress Routine Health General No change Peter Monzon (02/05/2021 Abbie Murray, 11:19 AM CONTINGENTS SUPERVISOR) RN Note: Formatting of this note is differe nt from the original. Routine Health Management Care Team Patient Care Team: Corrine Herrera MD as PCP - General ([facility] Medicine) Yossi Potts, RN as Registered Nurse (Diabetes Education) Abbie Ramesh RN as Death Surveys Coder Future Scheduled Appointments No future appointments. Health Maintenance Health Maintenance Topic Date Due Urine Protein Screening 05/31/2020 Lipid Panel 09/05/2020 Glaucoma Screening 67+ Yr 12/25/2020 Ophthalmology Exam 12/25/2020 [facility] 01/12/2021 Hemoglobin A1C 01/24/2021 Diabetic Foot Exam 03/16/2021 Colorectal Cancer Screening: Colonoscop y 05/21/2021 Fall Risk Performed 06/05/2021 Mammogram 12/03/2021 COVID-[address] Vacc[address] [facility] Pneumococcal Vaccine: <[address] [facility] Pneumococcal Vaccine: 65+ Years Com pleted HPV Vaccines Aged Out Notes: Due: Urine Protein screening Eye exam AWV A1C Lipid panel documented as of this encounter Results (ABNORMAL) Urine culture (clean catch) (12/23/2018 9:58 AM CONTINGENTS SUPERVISOR) [facility] Method Time Signature Urine Culture Escherichia coli 12/25/2018 [facility] 15,000 cfu/ml 9:15 AM CONTINGENTS SUPERVISOR [facility] Specimen Anatomical Collection Method Collection Time Receive d Time (Source) Location / / Volume Laterality Urine, Clean 12/23/2018 9:58 AM 9 Catch CONTINGENTS SUPERVISOR 12:18 PM CONTINGENTS SUPERVISOR Narrative [facility] - 10/2018 9:16 AM CONTINGENTS SUPERVISOR Patient does not have an Amoxicillin or [...] [facility] [address] [place] [address] (ABNORMAL) Urinalysis with reflex microscopic (12/23/2018 9:58 AM CONTINGENTS SUPERVISOR) [facility] Curried Away Catering Method Time Signature Type CLEAN CATCH 12/23/2018 [facility] 10:24 AM CONTINGENTS SUPERVISOR [place] Color, Urine YELLOW YELLOW 12/23/2018 [facility] 10:24 AM CONTINGENTS SUPERVISOR [place] Clarity, CLEAR CLEAR 12/23/2018 [facility] Urine 10:24 AM CONTINGENTS SUPERVISOR [place] Glucose, NEGATIVE NEGATIVE 12/23/2018 [facility] Urine mg/dL 10:24 AM CONTINGENTS SUPERVISOR [place] Bilirubin, NEGATIVE NEGATIVE 12/23/2018 [facility] Urine 10:24 AM CONTINGENTS SUPERVISOR [place] Ketones, NEGATIVE NEGATIVE 12/23/2018 [facility] Urine mg/dL 10:24 AM CONTINGENTS SUPERVISOR [place] Specific 1.020 1.000 12/23/2018 [facility] [place], ->=1.030 10:24 AM CONTINGENTS SUPERVISOR [place] Urine Blood, Urine NEGATIVE NEGATIVE 12/23/2018 [facility] 10:24 AM CONTINGENTS SUPERVISOR [place] pH, Urine 5.5 5.0 - 7.0 12/23/2018 [facility] 10:24 AM CONTINGENTS SUPERVISOR [place] Protein, NEGATIVE NEGATIVE-TRA 12/23/2018 [facility] Urine CE mg/dL 10:24 AM CONTINGENTS SUPERVISOR [place] Urobilinogen, 0.2 0.2 - 1.0 12/23/2018 [facility] Urine E.U./dL 10:24 AM CONTINGENTS SUPERVISOR [place] Nitrite, NEGATIVE NEGATIVE 12/23/2018 [facility] Urine 10:24 AM CONTINGENTS SUPERVISOR [place] Leukocytes, TRACE (A) NEGATIVE 12/23/2018 [facility] Urine 10:24 AM CONTINGENTS SUPERVISOR [place] Specimen Anatomical Collection Method Collection Time Receive d Time (Source) Location / / Volume Laterality Urine (Urine, 12/23/2018 9:58 AM 12/24/19 19 9:58 Clean Catch) CONTINGENTS SUPERVISOR AM CONTINGENTS SUPERVISOR D. Lincoln Herrera MD LAB URINE ORDERABLES Performing Organization Address City/State/ZIP Code Phon e Number [facility] [place] [address] [place] [address] documented in this encounter Visit Diagnoses Diagnosis Frequency of micturition - Primary Urinary frequency Raynaud's disease without gangrene Frequency of micturition Urinary frequency documented in this encounter Care Teams Casting Associate Relationship Specialty Start Date End Date Adriane Patel, NATIONAL SALES, WOOD FLOUR MILLER PCP - General 09/22/17 07/06/19 [address] [place] [address] documented as of this encounter
--- OUTSIDE RECORDS SUMMARY | 2021-10-24 10:43 | XMS_ITS | Encounter Summary ---
:1945 Author Organization [facility] Address [address] [place] [address] Care Team Providers Name Role Phone Adriane Patel Ronak DRUM BARKER OPERATOR, WOODEN BOAT BUILDER Primary Care Provider [phone] Encounter Details Date Type Department Care Team Description 12/23/2018 Patient Outreach SE Care Coordination Abbie Ramesh Counseling and coordination of care (Primary Dx); [address] [facility] Terri RN Type 2 diabetes mellitus with other spec ified complication, with long-term current use of insulin ([facility]) [place], [place] [address] [place] [address] [place] [address] Social History Tobacco Use Types Packs/Day Years [...] better. Follow-up plan: ??? Follow up with social media coordinator in 1 week to discuss care [...] 12/18/2019 ??? Fall Risk Performed 12/24/2019 ??? [facility] Annual Wellness 12/24/2019 ??? Colorectal Cancer Screening: Colonoscopy 05/21/2021 Lifestyle ??? Keep your medical appointments Future Appointments Date Time Provider Department Center 03/02/2019 10:00 AM [facility] [place] [facility] [place] 03/07/2019 9:00 AM JOSE DE JESUS [facility] Result Component ? ? Hemoglobin A1c < 7.0 8.0 8.7 8.5 8.5 9.0 Patient will work towards decreasing A1c to 7 within 6 months (June 2019) a.) Patient will check A1C every three months (Should be less than 7.0) b.) Patient will check blood glucose 2 times daily and report to healthcare project manager weekly c.) Patient will take medication as prescribed d.) Patient will exercise for 5 minutes 2 days per week e.) Patient will maintain a food diary f.) Patient will weigh daily and record g.) Patient will follow up with Endocrine Dr Stewart h.) Patient will schedule a foot exam: done i.) Patient will schedule an eye exam: done RVISOR BUILDING MAINTENANCE Abbie Ramesh RN - 12/23/2018 10:20 AM CST Care Plan - Care Coordination Enrolled date: Discussion Date: 12/23/18 11:40 AM Patient Information: Preferred Plant Operator Helper: patient Preferred Method of communication: Home [phone] (home) Okay to leave detailed message: Yes MyChart: No, Patient refused Literacy Concerns: No Cross Cut Saw Operator needed: No Extended Emergency Contact Information Primary Emergency Contact: ALEX BAZAN Mobile Relation: Spouse Cross Cut Saw Operator needed? No Healthcare Team: Patient Care Team: Adriane Patel APRN, WOODEN BOAT BUILDER as PCP - General JOSED E JESUS [place] as Diabetes Management (Endocrinology) Yossi Potts, RN as Registered Nurse (Diabetes Education) NEETU Gonzalez, RN, PHN as Food Technologist To contact your Crushing Machine Operator, please call Care Coordination at [phone] If this is an emergency, call [phone] Medications: Current Outpatient Medications: ??? Abatacept (ORENCIA [...] DAILY, Disp: 90 tablet, Rfl: 3 ??? pwfprcjf-bgdvvosep-svqjhxypainod (MAXITROL) [id number] ophthalmic suspension, Administer 1 drop into affected [...] total) by mouth 1 (one) time each day, Disp: 90 tablet, Rfl: 3 Allergies: Allergies Allergen [...] More than three times a week Attends episcopal service: More than 4 times per year [...] disease ??? Gout ??? Hyperlipidemia ??? Other long-term (current) drug therapy ??? Paresthesia of skin [...] 12/18/2019 ??? Fall Risk Performed 12/24/2019 ??? [facility] Annual Wellness 12/24/2019 ??? Colorectal Cancer Screening: Colonoscopy 05/21/2021 ? ? Hemoglobin A1c < 7.0 Patient will work towards decreasing A1c to 7 within 6 months (June 2019) a.) Patient will check A1C every three months (Should be less than 7.0) b.) Patient will check blood glucose 2 times daily and report to healthcare project manager weekly c.) Patient will take medication as [...] 03/07/2019 9:00 AM JOSE DE JESUS [facility] Emergency Plans: Diabetes Management Emergency Preparation Hypoglycemia [...] low blood glucose readings in 24 hours! RVISOR BUILDING MAINTENANCE documented in this encounter Plan of Treatment Not on filedocumented as of this encounter Goals Goal Patient Goal Associated Recent Patient-Stated? Author Type Problems Progress Routine Health General No change No Peter Ramesh (02/05/2021 Abbie Murray, 11:19 AM SUPERVISOR BUILDING MAINTENANCE) RN Note: Formatting of this note is differe nt from the original. Routine Health Management Care Team Patient Care Team: Corrine Vazquez MD as PCP - General ([facility] Medicine) Yossi Potts, RN as Registered Nurse (Diabetes Education) Abbie Ramesh RN as Food Technologist Future Scheduled Appointments No future appointments. Health Maintenance Health Maintenance Topic Date Due Urine Protein Screening 05/31/2020 Lipid Panel 09/05/2020 Glaucoma Screening 67+ Yr 12/25/2020 Ophthalmology Exam 12/25/2020 [facility] Annual Wellness 01/12/2021 Hemoglobin A1C 01/24/2021 Diabetic Foot Exam 03/16/2021 Colorectal Cancer Screening: Colonoscop y 05/21/2021 Fall Risk Performed 06/05/2021 Mammogram 12/03/2021 COVID-19 Vaccine Completed [facility] Pneumococcal Vaccine: <64 Completed [facility] Pneumococcal Vaccine: 65+ Years Com pleted HPV Vaccines Aged Out Notes: Due: Urine Protein screening Eye exam AWV A1C Lipid panel documented as of this encounter Visit Diagnoses Diagnosis Counseling and coordination of care - Pr imary Type 2 diabetes mellitus with other spec ified complication, with long-term current use of insulin (HCC) documented in this encounter Care Teams Dialysis Biomed Technician Relationship Specialty Start Date End Date Adriane Patel, DRUM BARKER OPERATOR, WOODEN BOAT BUILDER PCP - General 09/22/17 07/06/19 100 [facility] [address] documented as of this encounter
--- OUTSIDE RECORDS SUMMARY | 2021-10-24 10:43 | XMS_ITS | Encounter Summary ---
:1945 Author Organization [facility] Address [address] [place] [address] Care Team Providers Name Role Phone Adriane Patel Ronak RADIATION CONTROL WORKER, WELT RANDER Primary Care Provider [phone] Reason for Visit Reason Comments Diabetes 3 month f/u Encounter Details Date Type Department Care Team Description 03/07/2019 Office Visit SE Endocrinology Bacilio Stewart, Type 2 diabetes mellitus wit h other specified complication, with long-term current use of insulin (HCC) (Primary Dx); [address] [facility] SE MBBS Type 2 diabetes mellitus without complic ation, without long-term current use of insulin (HCC); [place] [address] SE Essential hypertension; [phone] [place], [place] Stage 3 chroni c kidney disease (HCC); [address] Mixed hyperlipidemia; [phone] Rheumatoid arth ritis, involving unspecified site, unspecified [...] Comments Blood Pressure 128/70 03/07/2019 9:55 AM DEICER KIT ASSEMBLER Pulse 90 03/07/2019 9:55 AM DEICER KIT ASSEMBLER Temperature 36.4 ??C (97.6 ??F) 03/07/2019 9:55 AM DEICER KIT ASSEMBLER Respiratory Rate 18 03/07/2019 9:55 AM DEICER KIT ASSEMBLER Oxygen Saturation - - Inhaled Oxygen Concentration - - Weight 83.9 kg (185 lb) 03/07/2019 9:55 AM DEICER KIT ASSEMBLER Height 157.5 cm (5' 2) 03/07/2019 9:55 AM DEICER KIT ASSEMBLER Body Mass Index 33.84 03/07/2019 9:55 AM DEICER KIT ASSEMBLER documented in this encounter Patient Instructions Patient [...] Follow up in 3 months, with labs. ER KIT ASSEMBLER documented in this encounter Progress Notes JOSE [...] insulin, currently Glargine 17 units daily. Our assistant health educator, Denny Potts, has been in touch [...] Last eye exam showed no retinopathy in [place]. Dorsal aspect of toes hurts sometimes. Denies [...] coordination of care. Bacilio Stewart MD [employer] ER KIT ASSEMBLER Adriane Patel APRN, CNP - 03/07/2019 10:00 AM CST Reviewed. ER KIT ASSEMBLER documented in this encounter Plan of Treatment Not on filedocumented as of this encounter Goals Goal Patient Goal Associated Recent Patient-Stated? Author Type Problems Progress Routine Health General No change No Peter Ramesh (02/05/2021 Abbie Murray, 11:19 AM DEICER KIT ASSEMBLER) RN Note: Formatting of this note is differe nt from the original. Routine Health Management Care Team Patient Care Team: Corrine Vazquez MD as PCP - General ([facility] Medicine) Yossi Potts, RN as Registered Nurse (Diabetes Education) Abbie Ramesh RN as Cotton Seed Culler Future Scheduled Appointments No future appointments. Health [...] 148 mg/dL 06/01/2019 12:50 PM CD T [facility] Comment: No established reference range. Microalb/Creat Ratio 10 0 - 24 mg/g 06/01/2019 12: 50 PM CDT [facility] Specimen Anatomical Collection Method Collection Time Receive d Time (Source) Location / / Volume Laterality Urine 06/01/2019 8:50 AM 0 CDT 12:11 PM CDT Bacilio Stewart [facility] LAB URINE ORDERABLES Performing Organization Address City/State/ZIP Code Phon e Number [facility] [address] [place] [address] (ABNORMAL) Basic metabolic panel (06/01/2019 8:48 AM CDT) P athologist Signature Sodium 140 135 - 145 06/01/2019 [facility] mmol/L 10:10 AM CDT [place] Potassium 4.0 3.5 - 5.1 06/01/2019 [facility] [place] mmol/L 10:10 AM CDT [place] Comment: . Chloride 104 98 - 107 mmol/L 06/01/2019 10:10 AM CDT [facility] [place] Comment: . CO2 29 22 - 29 mmol/L 06/01/2019 10:10 AM CDT [facility] [place] Comment: . Creatinine 1.3 (H) 0.4 - 1.2 mg/dL 06/01/2019 10:10 AM CDT [facility] [place] Comment: . BUN 32 (H) 5 - 25 mg/dL 06/01/2019 10:10 AM CDT [facility] Comment: . Glucose 209 (H) 70 - 100 mg/dL 06/01/2019 10:10 AM [facility] [place] CDT Calcium, Total,S 9.7 8.4 - 10.2 mg/dL 06/01/2019 10:10 AM [facility] [place] [place] CDT Comment: . Fasting? No 06/01/2019 8:48 AM CDT [facility] CAN NON [place] Specimen Anatomical Collection Method Collection Time Receive d Time (Source) Location / / Volume Laterality Blood 06/01/2019 8:48 AM 0 8:48 CDT AM CDT Bacilio [facility] LAB BLOOD ORDERABLES Performing Organization Address City/State/ZIP Code Phon e Number [facility] [place] [address] [place] [address] (ABNORMAL) Hemoglobin A1c (06/01/2019 8:48 AM CDT) Analysis Performed At Patho logist Time Signature Hemoglobin A1C 8.5 (H) 4.0 - 5.6 06/01/2019 [facility] % A1C 12:37 PM CDT [facility] Comment: Reference Range 4.0-5.6% [...] / / Volume Laterality Blood 06/01/2019 8:48 AM 0 CDT 12:11 PM CDT Bacilio [facility] LAB BLOOD ORDERABLES Performing Organization Address City/State/ZIP Code Phon e Number [facility] [address] [place] [address] documented in this encounter Visit Diagnoses Diagnosis [...] presence documented in this encounter Care Teams Financial Advisor Relationship Specialty Start Date End Date Adriane Patel, RADIATION CONTROL WORKER, WELT RANDER PCP - General 09/22/17 07/06/19 100 [facility] [place] [address] documented as of this encounter
--- OUTSIDE RECORDS SUMMARY | 2021-10-24 10:43 | XMS_ITS | Encounter Summary ---
:1945 Author Organization [facility] Address [address] [place] [address] Care Team Providers Name Role Phone Adriane Patel Ronak POWERTRAIN CALIBRATION ENGINEER, TRADER Primary Care Provider [phone] Encounter Details Date Type Department Care Team Description 12/23/2018 [facility] Frequency of micturition [address] [place], [place] [address] Social History Tobacco [...] Peter Ramesh (02/05/2021 Abbie Murray, 11:19 AM FILE CLERK) RN Note: Formatting of this note is differe nt from the original. Routine Health Management Care Team Patient Care Team: Corrine Vazquez MD as [facility]CP - [facility] Yossi Potts, RN as Registered Nurse (Diabetes Education) Abbie Ramesh, RN as Skull Grinder Future Scheduled Appointments No future appointments. Health Maintenance Health Maintenance Topic Date Due Urine Protein Screening 05/31/2020 Lipid Panel 09/05/2020 Glaucoma Screening 67+ Yr 12/25/2020 Ophthalmology Exam 12/25/2020 [facility] Annual Wellness 01/12/2021 Hemoglobin A1C 01/24/2021 Diabetic Foot Exam 03/16/2021 Colorectal Cancer Screening: Colonoscop y 05/21/2021 Fall Risk Performed 06/05/2021 Mammogram 12/03/2021 COVID-19 Vaccine Com[place] [facility] Pneumococcal Vaccine: <64 Completed [facility] Pneumococcal Vaccine: 65+ Years Com pleted HPV Vaccines Aged Out Notes: Due: Urine Protein screening Eye exam AWV A1C Lipid panel documented as of this encounter Procedures Procedure Name Priority Date/Time Associated Diagnosis Comme nts URINALYSIS-MICROSCOP Routine 12/23/2018 9:58 AM Frequency of R esults for this IC EXAM (REFLEXED) FILE CLERK micturition procedure are in the results section. URINALYSIS WITH Routine 12/23/2018 9:58 AM Frequency of Result s for this REFLEX MICROSCOPIC FILE CLERK micturition procedure are in the results section. URINE CULTURE Routine 12/23/2018 9:58 AM Frequency of Results for this FILE CLERK micturition procedure are i n the results section. documented in this encounter Results Urinalysis-Microscopic Exam (12/23/2018 9:58 AM FILE CLERK) [facility] Method Time Signature Casts, urine NONE SEEN 0-2 Hyaline 12/24/2018 IBIS /lpf 12:59 PM [facility] Significant NONE SEEN None Seen 12/24/2018 IBIS casts, urine /lpf 12:59 PM [facility] RBC, Urine NONE SEEN 0 - 3 /hpf 12/24/2018 IBIS 12:59 PM [facility] WBC, Urine 4-10 /hpf 12/24/2018 IBIS 12:59 PM [facility] Comment: Male Ref Range ? 0-3/hpf Female Ref Range ?? 0-10/hpf WBC Clumps Present. Squamous Epithelial, FEW Few /lpf 12/24/2018 12:59 PM [facility] Urine [facility] Trans Epithelial, NONE SEEN 0 - 3 /hpf 12/24/2018 12:59 PM O [facility]ED [facility] Urine [facility] Renal Tubular Cells, NONE SEEN 0 - 1 /hpf 12/24/2018 12:59 P [facility] Urine [facility] Bacteria, Urine NONE SEEN None Seen 12/24/2018 12:59 PM [facility]ENTER LABORATORY Specimen Anatomical Collection Method Collection Time Receive d Time (Source) Location / / Volume Laterality 12/23/2018 9:58 AM 9 FILE CLERK 12:18 PM FILE CLERK Corrine Vazquez MD LAB URINE ORDERABLES Performing Organization Address City/State/[facility] Code Phon e Number [facility] [address] [place] [address] (ABNORMAL) Urine culture (clean catch) (12/23/2018 9:58 AM FILE CLERK) [facility] gist Method Time Signature Urine Culture Escherichia coli 12/25/2018 MARTIN 15,000 cfu/ml 9:15 AM [facility] Specimen Anatomical Collection Method Collection Time Receive d Time (Source) Location / / Volume Laterality Urine, Clean 12/23/2018 9:58 AM 9 Catch FILE CLERK 12:18 PM FILE CLERK Narrative [facility] - 10/2018 9:16 AM FILE CLERK Patient does not have an Amoxicillin or [...] Number [facility] [address] [place] [address] (ABNORMAL) Urinalysis with reflex microscopic (12/23/2018 9:58 AM FILE CLERK) [facility] Method Time Signature Type CLEAN CATCH 12/23/2018 [facility] 10:24 AM FILE CLERK [place] Color, Urine YELLOW YELLOW 12/23/2018 [facility] 10:24 AM FILE CLERK [place] Clarity, CLEAR CLEAR 12/23/2018 [facility] Urine 10:24 AM FILE CLERK [place] Glucose, NEGATIVE NEGATIVE 12/23/2018 [facility] mg/dL 10:24 AM FILE CLERK [place] Bilirubin, NEGATIVE NEGATIVE 12/23/2018 [facility] Urine 10:24 AM FILE CLERK [place] Ketones, NEGATIVE NEGATIVE 12/23/2018 [facility] Urine mg/dL 10:24 AM FILE CLERK [place] Specific 1.020 1.000 12/23/2018 [facility] [place], ->=1.030 10:24 AM FILE CLERK [place] Urine Blood, Urine NEGATIVE NEGATIVE 12/23/2018 [facility] 10:24 AM FILE CLERK [place] pH, Urine 5.5 5.0 - 7.0 12/23/2018 [facility] 10:24 AM FILE CLERK [place] Protein, NEGATIVE NEGATIVE-TRA 12/23/2018 [facility] Urine CE mg/dL 10:24 AM FILE CLERK [place] Urobilinogen, 0.2 0.2 - 1.0 12/23/2018 [facility] Urine E.U./dL 10:24 AM FILE CLERK [place] Nitrite, NEGATIVE NEGATIVE 12/23/2018 [facility] Urine 10:24 AM FILE CLERK [place] Leukocytes, TRACE (A) NEGATIVE 12/23/2018 [facility] Urine 10:24 AM FILE CLERK [place] Specimen Anatomical Collection Method Collection Time Receive d Time (Source) Location / / Volume Laterality Urine (Urine, 12/23/2018 9:58 AM 12/24/19 19 9:58 Clean Catch) FILE CLERK AM FILE CLERK Corrine Vazquez MD LAB URINE ORDERABLES Performing Organization Address City/State/ZIP Code Phon e Number [facility] [place] [address] [place] [address] documented in this encounter Visit Diagnoses Diagnosis Frequency of micturition Urinary frequency documented in this encounter Care Teams Home Office Claim Specialist Relationship Specialty Start Date End Date Adriane Patel, POWERTRAIN CALIBRATION ENGINEER, TRADER PCP - General 09/22/17 07/06/19 100 [place] [address] documented as of this encounter
--- OUTSIDE RECORDS SUMMARY | 2021-10-24 10:43 | XMS_ITS | Encounter Summary ---
:[address] [facility] Address [address] [place] [address] Care Team Providers Name Role Phone Adriane Patel Ronak FINANCIAL MARKET DEALER, CONCRETE WORKER Primary Care Provider [phone] Encounter Details Date Type Department Care Team [...] More than 4 times per year 12/23/2018 latter-day services? Do you belong to any clubs [...] Ramesh Management (02/05/2021 Abbie Murray, 11:19 AM IDEA WORKER) RN Note: Formatting of this note is differe nt from the original. Routine Health Management Care Team Patient Care Team: Corrine Vazquez MD as PCP - [facility] Yossi Potts, RN as Registered Nurse (Diabetes Education) Abbie Ramesh, RN as Mechanical Adjuster Future Scheduled Appointments No future appointments. Health [...] on filedocumented in this encounter Care Teams Proc Tech Relationship Specialty Start Date End Date Adriane Patel, FINANCIAL MARKET DEALER, CONCRETE WORKER PCP - General 09/22/17 07/06/19 100 [facility] [place] [address] documented as of this encounter
--- OUTSIDE RECORDS SUMMARY | 2021-10-24 10:43 | XMS_ITS | Encounter Summary ---
:[address] [facility] Address [address] [place] [address] Care Team Providers Name Role Phone Adriane Patel AERONAUTICS TEACHER, DISTRIBUTED ENERGY SYSTEMS CONSULTANT Primary Care Provider [phone] Reason for Visit Reason Onset Date Comments mail lab results 06/21/2019 Encounter Details Date Type Department Care Team Description 06/21/2019 Telephone [place] Adriane Patel, mail lab results [address] AERONAUTICS TEACHER, DISTRIBUTED ENERGY SYSTEMS CONSULTANT [place], [place] [address] [address] [facility] [phone] [place], [place] [address] Social History Tobacco Use [...] Telephone Encounter - Rebecca Ibrahim MA - 06/21/2019 10:26 AM CDT Lab [...] Peter Ramesh (02/05/2021 Abbie Murray, 11:19 AM DRAMA DIRECTOR) RN Note: Formatting of this note is differe nt from the original. Routine Health Management Care Team Patient Care Team: Corrine Vazquez MD as PCP - [facility] Yossi Potts, RN as Registered Nurse (Diabetes Education) Abbie Ramesh RN as Fiber Optic Splicer Future Scheduled Appointments No future appointments. Health [...] on filedocumented in this encounter Care Teams Dehydrating Press Operator Relationship Specialty Start Date End Date Adriane Patel, AERONAUTICS TEACHER, DISTRIBUTED ENERGY SYSTEMS CONSULTANT PCP - General 09/22/17 07/06/19 100 [facility] [place] [address] documented as of this encounter
--- OUTSIDE RECORDS SUMMARY | 2021-10-24 10:43 | XMS_ITS | Encounter Summary ---
:1945 Author Organization [facility] Address [address] [place] [address] Care Team Providers Name Role Phone Corrine Vazquez MD Primary Care Provider Reason for Visit Consultation (Routine) - Closed Specialty Diagnoses / Procedures Referred By Contact Refer red To Contact Diagnoses Medicare annual wellness visit, initial Corrine Vazquez MD Care Coordination [address] [place], [place] [phone] Referral ID Status Reason Start Date Expiration Date Visits V isits Requested Authorized [id number] Closed Specialty 12/23/2018 99 99 Services Required Encounter Details Date Type Department Care Team Description 06/03/2019 Patient Outreach SE Care Coordination Abbie Ramesh Counseling and coordination of care (Primary Dx); [address] [place] [address] Terri RN Type 2 diabetes mellitus with other spec ified complication, with long-term current use of insulin (HCC); [place] [address] [address] [facility] (BMI 30.0-34.9) [phone] [place] [address] Social History Tobacco Use Types [...] 12/23/2018 organizations such as yazdanism groups, unions, MOLI or athletic groups, or school groups? How [...] 12/24/2019 ??? [facility]ness 12/24/2019 ??? Urine Protein Screening 05/31/2020 ??? Colorectal Cancer Screening: Colonoscopy 05/21/2021 ??? HPV Vaccines Aged Out Lifestyle ??? Keep your medical appointments On track Future Appointments Date Time Provider Department Center 06/13/2019 11:00 AM JOSE DE JESUS [facility] Result Component ? ? Hemoglobin A1c < 7.0 8.5 8.8 8.0 8.7 Patient will work towards decreasing A1c to 7 within 6 months (June 2019) (8.2 05/31/19) a.) Patient will check A1C every three months (Should be less than 7.0) b.) Patient will check blood glucose 2 times daily and report to animal care service worker weekly c.) Patient will take medication [...] Peter Monzon (02/05/2021 Abbie Murray, 11:19 AM GENERATING STATION MECHANIC) RN Note: Formatting of this note is differe nt from the original. Routine Health Management Care Team Patient Care Team: Corrine Vazquez MD as PCP - General ([facility]) Yossi N Delroy, RN as Registered Nurse (Diabetes Education) Abbie Ramesh, RN as Guncotton Packer Future Scheduled Appointments No future appointments. Health [...] (02/05/2021 11:17 AM No Abbie Ramesh, RN GENERATING STATION MECHANIC) Note: Formatting of this note is [...] 30.0-34.9) documented in this encounter Care Teams Cardiac Rehabilitation Program Director Relationship Specialty Start Date End Date Corrine Vazquez MD PCP - General Family Medicine 07/07/19 08/19/21 [address] [place] [address] documented as of this encounter
--- OUTSIDE RECORDS SUMMARY | 2021-10-24 10:43 | XMS_ITS | Encounter Summary ---
:1945 Author Organization [facility] Address [address] [place] [address] Care Team Providers Name Role Phone Adriane Patel Ronak CUSTOMER MARKETING INTERN, WEB PRESS OPERATOR ASSISTANT Primary Care Provider [phone] Reason for Visit Consultation (Routine) - Closed Specialty Diagnoses / Procedures Referred By Contact Refer red To Contact Diagnoses Medicare annual wellness visit, initial Corrine Vazquez MD Care Coordination [address] [place], [place] [phone] Referral ID Status Reason Start Date Expiration Date Visits V isits Requested Authorized [id number] Closed Specialty 12/23/2018 99 99 Services Required Encounter Details Date Type Department Care Team Description 04/26/2019 Patient Outreach Care Abbie Ramesh and coordination of care (Primary Dx); Aldo Murray RN Type 2 diabetes mellitus with other spec ified complication, with long-term current use of insulin (HCC); [address] [facility] [address] Conjunctivitis of both eyes, unspecified conjunctivitis type; [place], [place] [id number] [place] [address] Stage 3 chronic kidney disease (HCC) [phone] [place] [address] Social History Tobacco Use Types [...] 12/23/2018 organizations such as hindu groups, unions, [employer] or athletic groups, or school groups? How [...] 12/18/2019 ??? Fall Risk Performed 12/24/2019 ??? [facility] Annual Wellness 12/24/2019 ??? Colorectal Cancer Screening: Colonoscopy 05/21/2021 ??? HPV Vaccines Aged Out Lifestyle ??? Keep your medical appointments Future Appointments Date Time Provider Department Center 06/13/2019 11:00 AM JOSE DE J[facility] Result Component ? ? Hemoglobin A1c < 7.0 8.8 8.0 8.7 8.5 8.5 Patient will work towards decreasing A1c to 7 within 6 months (June 2019) a.) Patient will check A1C every three months (Should be less than 7.0) b.) Patient will check blood glucose 2 times daily and report to rn care transition weekly c.) Patient will take medication as [...] Peter Ramesh (02/05/2021 Abbie Murray, 11:19 AM SIGNAL APPRENTICE) RN Note: Formatting of this note is differe nt from the original. Routine Health Management Care Team Patient Care Team: Corrine Vazquez MD as PCP - General (F amily Medicine) Yossi Potts, RN as Registered Nurse (Diabetes Education) Abbie Ramesh, RN as Spray Gun Striper Future Scheduled Appointments No future appointments. Health Maintenance Health Maintenance Topic Date Due Urine Protein Screening 05/31/2020 Lipid Panel 09/05/2020 Glaucoma Screening 67+ Yr 12/25/2020 Ophthalmology Exam 12/25/[address] [facility] Annual Wellness 01/12/2021 [...] (HCC) documented in this encounter Care Teams Cattle Dipper Relationship Specialty Start Date End Date Adriane Patel APRN, WEB PRESS OPERATOR ASSISTANT PCP - General 09/22/17 07/06/[address] [place] [address] documented as of this encounter
--- OUTSIDE RECORDS SUMMARY | 2021-10-24 10:43 | XMS_ITS | Encounter Summary ---
:1945 Author Organization [facility] Address [address] [place] [address] Care Team Providers Name Role Phone Adriane Patel MOTORCYCLE TECHNICIAN, SAUSAGE CUTTER Primary Care Provider [phone] Reason for Visit Reason Onset Date Comments Pain when urinating 12/22/2018 Encounter Details Date Type Department Care Team Description 12/22/2018 Telephone [place] Adriane Patel, Pain when urinating [address] MOTORCYCLE TECHNICIAN, SAUSAGE CUTTER [place], [place] [address] [address] [facility] [address] [phone] [place], [place] [address] Social History Tobacco Use [...] Telephone Encounter - Margareth Sanchez RN - 12/22/2018 10:41 AM CST Patient scheduled for appointment tomorrow with Dr. Vazquez. CUTTER HELPER Telephone Encounter - Adriane Patel APRN, CNP - 12/22/2018 10:30 AM RUG CUTTER HELPER The patient should be evaluated. Suresh Cm CUTTER HELPER Telephone Encounter - Margareth Sanchez RN - 12/22/2018 10:07 AM CST Please advise. CUTTER HELPER Telephone Encounter - Luciana Albarado - 12/22/2018 9:59 AM CST Pt called stating even though her lab work came back negative for a UTI she still has pain with urination. Pt is wondering about a possible kidney stone as mentioned by Suresh Patel, or what her next step should be. Please call Pt at [phone] to advise CUTTER HELPER documented in this encounter Plan of Treatment Not on filedocumented as of this encounter Visit Diagnoses Not on filedocumented in this encounter Care Teams Tight Cooper Relationship Specialty Start Date End Date Adriane Patel APRN, SAUSAGE CUTTER PCP - General 09/22/17 07/06/19 [address] [facility] [place] [address] documented as of this encounter
--- OUTSIDE RECORDS SUMMARY | 2021-10-24 10:43 | XMS_ITS | Encounter Summary ---
:1945 Author Organization [facility] Address [address] [place] [address] Care Team Providers Name Role Phone Adriane Patel Ronak SCORE CALLER, BOTTOM PAINTER Primary Care Provider [phone] Reason for Visit Reason Onset Date Comments Med Refill 02/24/2019 Encounter Details Date Type Department Care Team Description 02/24/2019 Refill SE Endocrinology Bacilio Stewart, Type 2 diabetes mellitus [address] [facility] [place] [address] [address] [facility] complication, without [phone] [place] [address] insulin ([facility]) Social History Tobacco Use Types Packs/Day Years [...] Rx pended and forwarded to Dr Stewart. UTER INFORMATION SYSTEMS PROFESSOR documented in this encounter Plan of Treatment Not on filedocumented as of this encounter Goals Goal Patient Goal Associated Recent Patient-Stated? Author Type Problems Progress Routine Health General No change No Peter Ramesh (02/05/2021 Abbie Murray, 11:19 AM COMPUTER INFORMATION SYSTEMS PROFESSOR) RN Note: Formatting of this note is differe nt from the original. Routine Health Management Care Team Patient Care Team: Corrine Vazquez MD as PCP - General ([facility] Medicine) Yossi Potts, RN as Registered Nurse (Diabetes Education) Abbie Ramesh RN as Forest Products Gatherer Future Scheduled Appointments No future appointments. Health [...] (HCC) documented in this encounter Care Teams Ignition Expert Relationship Specialty Start Date End Date Adriane Patel, SCORE CALLER, BOTTOM PAINTER PCP - General 09/22/17 07/06/19 [address] [place] [address] documented as of this encounter
--- OUTSIDE RECORDS SUMMARY | 2021-10-24 10:43 | XMS_ITS | Encounter Summary ---
:1945 Author Organization [facility] Address [address] [place] [address] Care Team Providers Name Role Phone Corrine Vazquez MD Primary Care Provider Reason for Visit Consultation (Routine) - Closed Specialty Diagnoses / Procedures Referred By Contact Refer red To Contact Diagnoses Medicare annual wellness visit, initial Corrine Vazquez MD Care Coordination [address] [place], [place] [phone] Referral ID Status Reason Start Date Expiration Date Visits V isits Requested Authorized [id number] Closed Specialty 12/23/2018 99 99 Services Required Encounter Details Date Type Department Care Team Description 07/19/2019 Patient Outreach SE Care Coordination Abbie Ramesh Counseling and coordination of care (Primary Dx); [address] [facility] Terri RN Type 2 diabetes mellitus with other spec ified complication, with long-term current use of insulin ([facility] [place] [address] [address] Rheumatoid arthritis, involv ing unspecified site, unspecified rheumatoid factor presence ([facility]); [phone] [facility] Rheumatoid arthritis, involving unspecif ied site, unspecified whether rheumatoid factor present ([facility]) [place] [address] Social History Tobacco Use Types [...] many times do you More than three agaptio es a week 12/23/2018 talk on the [...] and inquire about safety precautions taken at [facility]. CC called and updated patient on information. [...] 12/18/2019 ??? Fall Risk Performed 12/24/2019 ??? [facility] Annual Wellness 12/24/2019 ??? Lipid Panel 03/17/2020 ??? Urine Protein Screening 05/31/2020 ??? Colorectal Cancer Screening: Colonoscopy 05/21/2021 ??? HPV Vaccines Aged Out Lifestyle ??? Keep your medical appointments On track On track On track Future Appointments Date Time Provider Department Center 09/06/2019 8:00 AM [facility] [place] 09/12/2019 10:00 AM [facility] Result Component ? ? Hemoglobin A1c < 7.0 8.5 8.8 Patient will work towards decreasing A1c to 7 within 3 months (Sep 2019) (8.2 05/31/19) a.) Patient will check A1C every three months (Should be less than 7.0) b.) Patient will check blood glucose 2 times daily and report to assisted living care manager weekly c.) Patient will take medication [...] Peter Ramesh (02/05/2021 Abbie Murray, 11:19 AM CUPOLA MECHANIC) RN Note: Formatting of this note is differe nt from the original. Routine Health Management Care Team Patient Care Team: Corrine Vazquez MD as PCP - General (F amily Medicine) Yossi Potts, RN as Registered Nurse (Diabetes Education) Abbie Ramesh, RN as Elastic Cutter Future Scheduled Appointments No future appointments. Health Maintenance Health Maintenance Topic Date Due Urine Protein Screening 05/31/2020 Lipid Panel 09/05/2020 Glaucoma Screening 67+ Yr 12/25/2020 Ophthalmology Exam 12/25/2020 [facility] Annual Wellness 01/12/2021 Hemoglobin A1C 01/24/2021 Diabetic Foot Exam 03/16/2021 Colorectal Cancer Screening: Colonoscop y 05/21/2021 Fall Risk Performed 06/05/2021 Mammogram 12/03/2021 COVID-19 Vaccine Completed [facility] Pneumococcal Vaccine: <64 Completed [facility] Pneumococcal Vaccine: 65+ Years Com pleted HPV Vaccines Aged Out Notes: Due: Urine Protein screening Eye exam AWV A1C Lipid panel Diabetes Management General No change (02/05/2021 11:17 AM No Abbie Ramesh, RN CUPOLA MECHANIC) Note: Formatting of this note is [...] (HCC) documented in this encounter Care Teams Ship Unloader Relationship Specialty Start Date End Date Corrine Vazquez MD PCP - General Family Medicine 07/07/19 08/19/[address] [place] [address] documented as of this encounter
--- OUTSIDE RECORDS SUMMARY | 2021-10-24 10:43 | XMS_ITS | Encounter Summary ---
:1945 Author Organization [facility] Address [address] [place] [address] Care Team Providers Name Role Phone Adriane Patel Ronak PRODUCT MANUFACTURING PROFESSIONAL, ANGIOGRAPHER Primary Care Provider [phone] Encounter Details Date Type Department Care Team Description 06/01/2019 Lab [place] Type 2 diabetes mellitus wit h other specified complication, with long-term current use of insulin ([facility]); [address] Essential hypertension; [place], [place] [address] Stage 3 chronic kidney disea ([facility]) [phone] Social History Tobacco Use Types Packs/Day Years [...] Peter Ramesh (02/05/2021 Abbie Murray, 11:19 AM SURFACE BOSS) RN Note: Formatting of this note is differe nt from the original. Routine Health Management Care Team Patient Care Team: Corrine Vazquez MD as PCP - General ([facility] Medicine) Yossi Potts, RN as Registered Nurse (Diabetes Education) Abbie Ramesh RN as Paint Roller Covermaker Future Scheduled Appointments No future appointments. Health [...] MICROALBUMIN/CREATIN Routine 06/01/2019 8:50 AM Type 2 diabete s Results for this INE RATIO CDT mellitus with other procedur e are in specified the results complication, with section. long-term current use of insulin (HCC) Essential hypertension Stage 3 chronic kidney disease (HCC) GLOMERULAR Routine 06/01/2019 8:48 AM Type 2 diabetes Result s for this FILTRATION RATE CDT mellitus with other proce dure are in specified the results complication, with section. long-term current use of insulin (HCC) Essential hypertension Stage 3 chronic kidney disease (HCC) HEMOGLOBIN A1C Routine 06/01/2019 8:48 AM Type 2 diabetes Resu lts for [...] Signature Microalbumin,m 15.3 0.0 - 16.6 06/01/2019 [facility] g/day mg/L 12:50 PM CDT [facility] Comment: . Creatinine, Urine 148 mg/dL 06/01/2019 12:50 PM CD T [facility] Comment: No established reference range. Microalb/Creat Ratio 10 0 - 24 mg/g 06/01/2019 12: 50 PM CDT [facility] Specimen Anatomical Collection Method Collection Time Receive d Time (Source) Location / / Volume Laterality Urine 06/01/2019 8:50 AM 0 CDT 12:11 PM CDT Bacilio [facility]A CRU[facility] LAB URINE ORDERABLES Performing Organization Address City/[facility] Phon e Number [facility] [address] [place] [phone] (ABNORMAL) Glomerular filtration rate (GFR) (06/01/2019 8:48 AM CDT) athologist Signature GFR 40 (A) 06/01/2019 [facility] 10:10 AM CDT [facility] 49 (A) 06/01/2019 [facility] [place] GFR 10:10 AM CDT [facility] Comment: GFR calculated from serum creatinine v alue Chronic Kidney Disease less than 60 mL/m in/1.73 m2 Kidney Failure less than 15 mL/min/1.73 m2 Note: effective 07/01/06 IDMS-Traceable MDRD Study Equation used. Specimen Anatomical Collection Method Collection Time Receive d Time (Source) Location / / Volume Laterality 06/01/2019 8:48 AM 0 8:48 CDT AM CDT Bacilio DELA CRUZ LAB BLOOD ORDERABLES Performing Organization Address City/[facility] Phon e Number [facility] [address] [place] [address] (ABNORMAL) Hemoglobin A1c (06/01/2019 8:48 AM CDT) Analysis Performed At Patho logist Time Signature Hemoglobin A1C 8.5 (H) 4.0 - 5.6 06/01/2019 IBIS % A1C 12:37 PM CDT [facility]ENTER [...] 0 CDT 12:11 PM CDT Bacilio Stewart BS LAB BLOOD ORDERABLES Performing Organization Address City/State/ZIP Code Phon e Number [facility] [address] [place] [address] (ABNORMAL) Basic metabolic panel (06/01/2019 8:48 AM CDT) P athologist Signature Sodium 140 135 - 145 06/01/2019 [facility] [place] mmol/L 10:10 AM CDT [facility] Potassium 4.0 3.5 - 5.1 06/01/2019 [facility] [place] mmol/L 10:10 AM CDT [facility] Comment: . Chloride 104 98 - 107 mmol/L 06/01/2019 10:10 AM CDT [facility] Comment: . CO2 29 22 - 29 mmol/L 06/01/2019 10:10 AM CDT O [facility] Comment: . Creatinine 1.3 (H) 0.4 - 1.2 mg/dL 06/01/2019 10:10 AM CDT [facility] Comment: . BUN 32 (H) 5 - 25 mg/dL 06/01/2019 10:10 AM CDT [facility] Comment: . Glucose 209 (H) 70 - 100 mg/dL 06/01/2019 10:10 AM [facility] [place] CDT Calcium, Total,S 9.7 8.4 - 10.2 mg/dL 06/01/2019 10:10 AM [facility] [place] CDT Comment: . Fasting? No 06/01/2019 8:48 AM CDT [facility] [place] [facility] Specimen Anatomical Collection Method Collection Time Receive d Time (Source) Location / / Volume Laterality Blood 06/01/2019 8:48 AM 0 8:48 CDT AM CDT Bacilio DELA CRUZ LAB BLOOD ORDERABLES Performing Organization Address City/State/ZIP Code Phon e Number [facility] [place] [address] [place] [address] documented in this encounter Visit Diagnoses Diagnosis Type 2 diabetes mellitus with other spec ified complication, with long-term current use of insulin (HCC) Essential hypertension Unspecified essential hypertension Stage 3 chronic kidney disease (HCC) documented in this encounter Care Teams Smooth And Burr Worker Composites Relationship Specialty Start Date End Date Adriane Patel APRN, ANGIOGRAPHER PCP - General 09/22/17 07/06/[address] [place] [address] [place] [address] documented as of this encounter
--- OUTSIDE RECORDS SUMMARY | 2021-10-24 10:43 | XMS_ITS | Encounter Summary ---
:1945 Author Organization [facility] Address [address] [place] [address] Care Team Providers Name Role Phone Adriane Patel FIELD TECHNICIAN, WASHTUB WORKER HELPER Primary Care Provider [phone] Reason for Visit Consultation (Routine) - Closed Specialty Diagnoses / Procedures Referred By Contact Refer red To Contact Diagnoses Medicare annual wellness visit, initial Corrine Vazquez MD Care Coordination [address] [place], [place] [phone] Referral ID Status Reason Start Date Expiration Date Visits V isits Requested Authorized [id number] Closed Specialty 12/23/2018 99 99 Services Required Encounter Details Date Type Department Care Team Description 03/01/2019 Patient Outreach SE Care Coordination Abbie Ramesh Counseling and coordination of care (Primary Dx); [address] [facility] Terri RN Type 2 diabetes mellitus with other spec ified complication, with long-term current use of insulin ([facility]); [place] [address] [address] Rheumatoid arthritis, involv ing unspecified site, unspecified rheumatoid factor presence ([facility]) [phone] [place] [address] Social History Tobacco Use Types [...] 12/23/2018 organizations such as jehovah's witness groups, [employer], [employer] or athletic groups, or school groups? How [...] 12/18/2019 ??? Fall Risk Performed 12/24/2019 ??? [facility] Annual Wellness 12/24/2019 ??? Colorectal Cancer Screening: Colonoscopy 05/21/2021 ??? HPV Vaccines Aged Out Lifestyle ??? Keep your medical appointments Future Appointments Date Time Provider Department Center 03/07/2019 10:00 AM [facility]SE DE JESUS [facility] Result Component ? ? Hemoglobin A1c < 7.0 8.0 8.7 8.5 8.5 9.0 Patient will work towards decreasing A1c to 7 within 6 months (June 2019) a.) Patient will check A1C every three months (Should be less than 7.0) b.) Patient will check blood glucose 2 times daily and report to medicare sales executive weekly c.) Patient will take medication as prescribed d.) Patient will exercise for 5 minutes 2 days per week e.) Patient will maintain a food diary f.) Patient will weigh daily and record g.) Patient will follow up with Endocrine Dr Stewart h.) Patient will schedule a foot exam: done i.) Patient will schedule an eye exam: done PITMAN documented in this encounter Plan of Treatment Not on filedocumented as of this encounter Goals Goal Patient Goal Associated Recent Patient-Stated? Author Type Problems Progress Routine Health General No change No Peter Ramesh (02/05/2021 Abbie Murray, 11:19 AM SKIP PITMAN) RN Note: Formatting of this note is differe nt from the original. Routine Health Management Care Team Patient Care Team: Corrine Vazquez MD as PCP - General (F amily Medicine) Yossi Potts, RN as Registered Nurse (Diabetes Education) Abbie Ramesh, ERA as Locomotive Boilermaker Future Scheduled Appointments No future appointments. Health Maintenance Health Maintenance Topic Date Due Urine Protein Screening 05/31/2020 Lipid Panel 09/05/2020 Glaucoma Screening 67+ Yr 12/25/2020 Ophthalmology Exam 12/25/2020 [facility] Annual Wellness 01/12/2021 Hemoglobin A1C 01/24/2021 Diabetic Foot Exam 03/16/2021 Colorectal Cancer Screening: Colonoscop y 05/21/2021 Fall Risk Performed 06/05/2021 Mammogram 12/03/2021 COVID-19 Vaccine Completed [facility] Pneumococcal Vaccine: <64 Completed [facility] Pneumococcal Vaccine: 65+ Years Com [...] presence documented in this encounter Care Teams Handbook Writer Relationship Specialty Start Date End Date Adriane Patel, FIELD TECHNICIAN, WASHTUB WORKER HELPER PCP - General 09/22/17 07/06/19 [address] [place] [address] documented as of this encounter
--- OUTSIDE RECORDS SUMMARY | 2021-10-24 10:43 | XMS_ITS | Encounter Summary ---
:1945 Author Organization [facility] Address [address] [place] [address] Care Team Providers Name Role Phone Adriane Patel Ronak BOILER RELINER, WATCH AND CLOCK REPAIR CLERK Primary Care Provider [phone] Reason for Visit Reason Onset Date Comments Ozempic 03/11/2019 Encounter Details Date Type Department Care Team Description 03/11/2019 Telephone Endocrinology Bacilio Stewart MBBS Ozempic [address] [place] [address] [place] [address] [phone] (Wo rk) Social History Tobacco Use Types [...] of above message and verbalized an understanding. [place] PARTS PROFESSIONAL Telephone Encounter - JOSE DE JESUS [place] - 03/11/2019 3:56 PM CST It is completely up to her whether she wants to take a medication or not, I don't have any problem in either case. If she does not take ozempic, she should continue with the same dose of januvia. IL PARTS PROFESSIONAL Telephone Encounter - Rebecca Ibrahim MA - 03/11/2019 2:04 PM CST Patient called and stated that she is not wanting to proceed with Ozempic due to the warnings and side effects. Since her visit she has cut out sweets, carbs, snack between meal. Her fasting BG have been 100-116 Noon 92-127 Supper 98-156 Bedtime 165 2 am 129 Please advise [place] PARTS PROFESSIONAL documented in this encounter Plan of Treatment Not on filedocumented as of this encounter Goals Goal Patient Goal Associated Recent Patient-Stated? Author Type Problems Progress Routine Health General No change Peter Monzon (02/05/2021 Abbie Murray, 11:19 AM RETAIL PARTS PROFESSIONAL) RN Note: Formatting of this note is differe nt from the original. Routine Health Management Care Team Patient Care Team: Corrine Vazquez MD as PCP - General ([facility] Medicine) Yossi Potts, RN as Registered Nurse (Diabetes Education) Abbie Ramesh RN as Voyage Management System Operator Future Scheduled Appointments No future appointments. Health Maintenance Health Maintenance Topic Date Due Urine Protein Screening 05/31/2020 Lipid Panel 09/05/2020 Glaucoma Screening 67+ Yr 12/25/2020 Ophthalmology Exam 12/25/2020 [facility] Annual Wellness 01/12/2021 [...] on filedocumented in this encounter Care Teams Financing Analyst Relationship Specialty Start Date End Date Adriane Patel, BOILER RELINER, WATCH AND CLOCK REPAIR CLERK PCP - General 09/22/17 07/06/19 [address] [facility] [address] documented as of this encounter
--- OUTSIDE RECORDS SUMMARY | 2021-10-24 10:43 | XMS_ITS | Encounter Summary ---
:1945 Author Organization [facility] Address [address] [place] [address] Care Team Providers Name Role Phone Adriane Patel OBSTETRICS SPECIALIST, PERFECT BIND MACHINE OPERATOR Primary Care Provider [phone] Reason for Visit Reason Onset Date Comments call 12/24/2018 Encounter Details Date Type Department Care Team Description 12/24/2018 Telephone [place] Adriane Patel, call [address] OBSTETRICS SPECIALIST, PERFECT BIND MACHINE OPERATOR [place], [place] [address] [address] [facility] [address] [phone] [place], [place] [address] Social History Tobacco Use [...] RN - 12/27/2018 8:56 AM CST Noted IGERATOR MOVER Telephone Encounter - Corrine Vazquez MD - 12/24/2018 5:20 PM CST Antibiotic sent to [facility] IGERATOR MOVER Telephone Encounter - Margareth Sanchez RN - 12/24/2018 2:22 PM CST Patient informed, she would like to try the antibiotic first prior to trying the cream. Please send to [facility]. IGERATOR MOVER Telephone Encounter - Margareth Sanchez RN - 12/24/2018 2:22 PM CST ----- Message from Corrine Vazquez MD sent at 12/24/2018 2:09 PM REFRIGERATOR MOVER ----- Marcial's urine culture is not highly suggestive of a bladder infection. Call Marcial and see how her symptoms are. We have a couple of options. One is to actually treat with an antibiotic for one weeks and see if this helps as there was minor growth on the culture. If this does not help or if the symptoms continue then I would suggest we try vaginal estrogen cream as I suspect she has atrophic vaginitis that is possibly causing her symptoms. The other option is to just start the vaginal estrogen atthis time. Let me know what she would like to do. IGERATOR MOVER documented in this encounter Plan of Treatment Not on filedocumented as of this encounter Goals Goal Patient Goal Associated Recent Patient-Stated? Author Type Problems Progress Routine Health General No change Hailee Ramesh Management (02/05/2021 Abbie Murray, 11:19 AM REFRIGERATOR MOVER) RN Note: Formatting of this note is differe nt from the original. Routine Health Management Care Team Patient Care Team: Corrine Vazquez MD as PCP - General ([facility]) Yossi Potts, RN as Registered Nurse (Diabetes Education) Abbie Ramesh, ERA as Parking Lot Supervisor Future Scheduled Appointments No future appointments. [...] [facility] Pneumococcal Vaccine: <64 Completed [facility] Pneumococcal Vaccine: 65+ Years Com pleted HPV Vaccines Aged Out Notes: Due: Urine Protein screening Eye exam AWV A1C Lipid panel documented as of this encounter Visit Diagnoses Diagnosis Cystitis - Primary Unspecified cystitis documented in this encounter Care Teams [place] Machine Operator Relationship Specialty Start Date End Date Adriane Patel, OBSTETRICS SPECIALIST, PERFECT BIND MACHINE OPERATOR PCP - General 09/22/17 07/06/19 100 [place] [address] documented as of this encounter
--- OUTSIDE RECORDS SUMMARY | 2021-10-24 10:43 | XMS_ITS | Encounter Summary ---
:1945 Author Organization [facility] Address [address] [place] [address] Care Team Providers Name Role Phone Adriane Patel Ronak OBSTETRICIAN, TRAIN BRAKE OPERATOR Primary Care Provider Reason for Visit Consultation (Routine) - Closed Specialty Diagnoses / Procedures Referred By Contact Refer red To Contact Diagnoses Medicare annual wellness visit, initial Corrine Vazquez MD Care Coordination [address] [place] [address] [place] [address] 5 [phone] Referral ID Status Reason Start Date Expiration Date Visits V isits Requested Authorized [id number] Closed Specialty 12/23/2018 99 99 Services Required Encounter Details Date Type Department Care Team Description 01/24/2019 Patient Outreach SE Care Coordination Corrine Vazquez MD [address] [place] [address] Counseling and coordination of care (Terrie salcedo Dx); [address] [place] [address] Abbie Ramesh RN [address] [place] [phone] Type 2 diabetes mellitus with other spec ified complication, with long-term current use of insulin ([facility]) [place] [address] Social History Tobacco Use Types [...] Coordination Discussion Date: 01/24/2019 3:42 PM Completed [facility] monthly follow up with Marcial Medication reviewed. [...] Spoke to Dr Hadley's office and discussed Marcial's condition. She recommended Marcial continue with the [...] Hadley to discuss these issues further. ??? Lurene states she spoke to Denny Potts from [...] 12/18/2019 ??? Fall Risk Performed 12/24/2019 ??? [facility] Annual Wellness 12/24/2019 ??? Colorectal Cancer Screening: Colonoscopy 05/21/2021 Lifestyle ??? Keep your medical appointments Future Appointments Date Time Provider Department Center 03/02/2019 10:00 AM [facility] [place] 03/07/2019 9:00 AM [facility] Result Component ? ? Hemoglobin A1c < 7.0 8.0 8.7 8.5 8.5 9.0 Patient will work towards decreasing A1c to 7 within 6 months (June 2019) a.) Patient will check A1C every three months (Should be less than 7.0) b.) Patient will check blood glucose 2 times daily and report to career services representative weekly c.) Patient will take medication as prescribed d.) Patient will exercise for 5 minutes 2 days per week e.) Patient will maintain a food diary f.) Patient will weigh daily and record g.) Patient will follow up with Endocrine Dr Stewart h.) Patient will schedule a foot exam: done i.) Patient will schedule an eye exam: done TRIC TAPE SLITTER documented in this encounter Plan of Treatment Scheduled Referrals Name Type Priority Associated Order Schedule Diagnoses Ambulatory referral Outpatient Referral Routine Medicare corie rodgers Ordered: to Care Coordination wellness visit, 08/2018 initial documented as of this encounter Goals Goal Patient Goal Associated Recent Patient-Stated? Author Type Problems Progress Routine Health General No change No Domitila Management (02/05/2021 Abbie Murray, 11:19 AM ELECTRIC TAPE SLITTER) RN Note: Formatting of this note is differe nt from the original. Routine Health Management Care Team Patient Care Team: Corrine Vazquez MD as PCP - General ([facility] Medicine) Yossi Potts, RN as Registered Nurse (Diabetes Education) Abbie Ramesh RN as Cut Plug Packer Future Scheduled Appointments No future appointments. Health Maintenance Health Maintenance Topic Date Due Urine Protein Screening 05/31/2020 Lipid Panel 09/05/2020 Glaucoma Screening 67+ Yr 12/25/2020 Ophthalmology Exam 12/25/2020 [facility] Annual Wellness 01/12/2021 Hemoglobin A1C 01/24/2021 Diabetic [...] (HCC) documented in this encounter Care Teams Cisco Network Architect Relationship Specialty Start Date End Date Adriane Patel, OBSTETRICIAN, TRAIN BRAKE OPERATOR PCP - General 09/22/17 07/06/19 100 [facility] [place] [address] documented as of this encounter
--- OUTSIDE RECORDS SUMMARY | 2021-10-24 10:43 | XMS_ITS | Encounter Summary ---
:1945 Author Organization [facility] Address [address] [place] [address] Care Team Providers Name Role Phone Adriane Patel Ronak FRANCHISE CONSULTANT, MEAT PROCESSING CENTER MANAGER Primary Care Provider [phone] Encounter Details Date Type Department Care Team Description 12/24/2018 Orders Only [place] Corrine Vazquez MD [address] [facility] [address] [place], [place] [address] [place], [place] [phone] (Wo rk) Social History Tobacco Use Types [...] Domitila, Management (02/05/2021 Abbie Murray, 11:19 AM STREETCAR CONDUCTOR) RN Note: Formatting of this note is differe nt from the original. Routine Health Management Care Team Patient Care Team: Corrine Vazquez MD as PCP - [facility] Yossi Potts, RN as Registered Nurse (Diabetes Education) Abbie Ramesh RN as Product Marketing Executive Future Scheduled Appointments No future appointments. Health [...] on filedocumented in this encounter Care Teams Quality Engineer Medical Device Relationship Specialty Start Date End Date Adriane Patel, FRANCHISE CONSULTANT, MEAT PROCESSING CENTER MANAGER PCP - General 09/22/17 07/06/19 100 [place] [address] documented as of this encounter
--- OUTSIDE RECORDS SUMMARY | 2021-10-24 10:43 | XMS_ITS | Encounter Summary ---
:1945 Author Organization [facility] Address [address] [place] [address] Care Team Providers Name Role Phone Adriane Patel Ronak DIRECTOR DESIGN, PHOTOENGRAVING HELPER Primary Care Provider [phone] Reason for Visit Reason Comments Immunizations FLU Encounter Details Date Type Department Care Team Description 01/17/2019 Immunization Chuckie Pierre Immunization due (Primary [address] Dx) [place], [place] [address] Social History Tobacco Use [...] with patient prior to administration. VIS given. GRINDER documented in this encounter Plan of Treatment Not on filedocumented as of this encounter Goals Goal Patient Goal Associated Recent Patient-Stated? Author Type Problems Progress Routine Health General No change No Peter Ramesh (02/05/2021 Abbie Murray, 11:19 AM BIT GRINDER) RN Note: Formatting of this note is differe nt from the original. Routine Health Management Care Team Patient Care Team: Corrine Vazquez MD as PCP - General ([facility] Medicine) Yossi Potts, RN as Registered Nurse (Diabetes Education) Abbie Ramesh, ERA as Patient Support Partner Future Scheduled Appointments No future appointments. Health Maintenance Health Maintenance Topic Date Due Urine Protein Screening 05/31/2020 Lipid Panel 09/05/2020 Glaucoma Screening 67+ Yr 12/25/2020 Ophthalmology Exam 12/25/2020 [facility] Annual Wellness 01/12/2021 Hemoglobin A1C 01/24/2021 Diabetic Foot Exam 03/16/2021 Colorectal Cancer Screening: Colonoscop y 05/21/2021 Fall Risk Performed 06/05/2021 Mammogram 12/03/2021 COVID-19 Vaccine Completed [facility] Pneumococcal Vaccine: <64 Completed [facility] Pneumococcal Vaccine: 65+ Years Com pleted HPV Vaccines Aged Out Notes: Due: Urine Protein screening Eye exam AWV A1C Lipid panel documented as of this encounter Visit Diagnoses Diagnosis Immunization due - Primary documented in this encounter Care Teams Tablet Coater Relationship Specialty Start Date End Date Adriane Patel, DIRECTOR DESIGN, PHOTOENGRAVING HELPER PCP - General 09/22/17 07/06/[address] [place], [place] [address] [id number] documented as of this encounter
--- OUTSIDE RECORDS SUMMARY | 2021-10-24 10:43 | XMS_ITS | Encounter Summary ---
:1945 Author Organization [facility] Address [address] [place] [address] Care Team Providers Name Role Phone Adriane Patel RESEARCH RN SPEC, FARM EQUIPMENT OPERATOR Primary Care Provider [phone] Reason for Visit Reason Comments Med Refill Encounter Details Date Type Department Care Team Description 04/16/2019 Refill [place] Adriane Patel, Anxiety (Primary Dx) [address] RESEARCH RN SPEC, FARM EQUIPMENT OPERATOR [place], [place] [address] [address] [facility] [address] [phone] [place], [place] [address] Social History Tobacco Use [...] Rx faxed to [facility] as requested. IFIED GENETIC COUNSELOR Telephone Encounter - Lana Knight LPN - 04/18/2019 1:25 PM CST Please fax to [facility] IFIED GENETIC COUNSELOR Telephone Encounter - Adriane Patel APRN, LEONARD - 04/18/2019 1:04 PM CERTIFIED GENETIC COUNSELOR Completed. Suresh Cm IFIED GENETIC COUNSELOR Telephone Encounter - Huma Reich MA - [...] Last 2 Encounters: 03/07/19 128/70 12/23/18 152/82 IFIED GENETIC COUNSELOR documented in this encounter Plan of Treatment Not on filedocumented as of this encounter Goals Goal Patient Goal Associated Recent Patient-Stated? Author Type Problems Progress Routine Health General No change Hailee Ramesh Management (02/05/2021 Abbie Murray, 11:19 AM CERTIFIED GENETIC COUNSELOR) RN Note: Formatting of this note is differe nt from the original. Routine Health Management Care Team Patient Care Team: Corrine Vazquez MD as PCP - General ([facility]) Yossi Potts, RN as Registered Nurse (Diabetes Education) Abbie Ramesh, ERA as Hogshead Inspector Future Scheduled Appointments No future appointments. [...] unspecified documented in this encounter Care Teams Healthcare Specialist Relationship Specialty Start Date End Date Adriane Patel, RESEARCH RN SPEC, FARM EQUIPMENT OPERATOR PCP - General 09/22/17 07/06/19 100 [facility] [place] [address] documented as of this encounter
--- OUTSIDE RECORDS SUMMARY | 2021-10-24 10:43 | XMS_ITS | Encounter Summary ---
:1945 Author Organization [facility] Address [address] [place] [address] Care Team Providers Name Role Phone Adriane Patel STRIKE OUT MACHINE OPERATOR, CLEANING ASSOCIATE Primary Care Provider [phone] Reason for Referral Consultation (Routine) - Closed Specialty Diagnoses / Procedures Referred By Contact Refer red To Contact Diagnoses Medicare annual wellness visit, initial Corrine Vazquez MD Care Coordination [address] [facility] [address] [place], [place] [phone] Referral ID Status Reason Start Date Expiration Date Visits V isits Requested Authorized [id number] Closed Specialty 12/23/2018 99 99 Services Required Scheduling Instructions Staff from this department will contact the patient to schedule an appointment. FIC RATE CLERK Reason for Visit Reason Comments Medicare Annual Wellness Visit Initial Encounter Details Date Type Department Care Team Description 12/23/2018 Office Visit [place] Medicare annual wellness [address] visit, initial (Primary [place], [place] [address] Dx) [phone] Social History Tobacco Use Types Packs/Day Years [...] RESOURCES: Patient Care Team: Adriane Patel APRN, CLEANING ASSOCIATE as PCP - General [facility] [place] as Diabetes Management (Endocrinology) Yossi Potts RN as Registered Nurse (Diabetes Education) Eye Care: Dr Hadley in [place]: [facility]- 1 week ago Dental Care: Pharmacy: [facility] [address] [address] [facility] [address] [address] Other: Visit Vitals Smoking Status Never Smoker [...] BY MOUTH DAILY 90 tablet 3 ??? nqnnavvz-aczhoyatk-iggqshsbvnzqn (MAXITROL) 3.5-34082-7.1 ophthalmic suspension Administer 1 drop into affected [...] disease ??? Gout ??? Hyperlipidemia ??? Other residential (current) drug therapy ??? Paresthesia of skin [...] More than three times a week Attends pentecostal service: More than 4 times per year [...] the patient's advance care planning wishes:: Yes Amish or spiritual beliefs that impact treatment:: No [...] Fall Risk Assessment performed. Scored: Tug time: 10 Referral to Physical Therapy [...] transfusion before 1991. ?? Those born between 1276-8480. Glaucoma: Medicare Part B (Medical Insurance) covers [...] of one pack a dayfor 30 years). FIC RATE CLERK documented in this encounter Plan of Treatment Scheduled Referrals Name Type Priority Associated Order Schedule Diagnoses Ambulatory referral Outpatient Referral Routine Medicare corie rodgers Ordered: to Care Coordination wellness visit, 08/2018 initial documented as of this encounter Goals Goal Patient Goal Associated Recent Patient-Stated? Author Type Problems Progress Routine Health General No change No Peter Ramesh (02/05/2021 Abbie Murray, 11:19 AM TRAFFIC RATE CLERK) RN Note: Formatting of this note is differe nt from the original. Routine Health Management Care Team Patient Care Team: Corrine Vazquez MD as PCP - [facility] Yossi Potts, RN as Registered Nurse (Diabetes Education) Abbie Ramesh, ERA as It Security Project Manager Future Scheduled Appointments No future appointments. Health Maintenance Health Maintenance Topic Date Due Urine Protein Screening 05/31/2020 Lipid Panel 09/05/2020 Glaucoma Screening 67+ Yr 12/25/2020 Ophthalmology Exam 12/25/2020 [facility] [place] Wellness 01/12/2021 Hemoglobin [...] Primary documented in this encounter Care Teams Signal Maintenance Technician Relationship Specialty Start Date End Date Adriane Patel APRN, CLEANING ASSOCIATE PCP - General 09/22/17 07/06/19 100 [facility] [place] [address] documented as of this encounter
--- OUTSIDE RECORDS SUMMARY | 2021-10-24 10:43 | XMS_ITS | Encounter Summary ---
:1945 Author Organization [facility] Address [address] [place] [address] Care Team Providers Name Role Phone Adriane Patel Ronak DIESEL LOCOMOTIVE ENGINEER, BEER MERCHANT Primary Care Provider [phone] Reason for Visit Reason Comments Med Refill Encounter Details Date Type Department Care Team Description 06/18/2019 Refill SE Endocrinology Bacilio Stewart, Type 2 diabetes mellitus [address] [place] [address] complication, without [phone] [place] [address] insulin ([facility]) Social History Tobacco Use Types Packs/Day Years [...] Telephone Encounter - Sumaya Mckoy LPN - 06/21/2019 12:39 PM CDT [...] Peter Ramesh (02/05/2021 Abbie Murray 11:19 AM NICKER AND BREAKER) RN Note: Formatting of this note is differe nt from the original. Routine Health Management Care Team Patient Care Team: Corrine Vazquez MD as PCP - [facility] Yossi Potts, RN as Registered Nurse (Diabetes Education) Abbie Ramesh, ERA as Lard Refiner Future Scheduled Appointments No future appointments. Health [...] (HCC) documented in this encounter Care Teams Certified Flight Instructor Relationship Specialty Start Date End Date Adriane Patel, DIESEL LOCOMOTIVE ENGINEER, BEER MERCHANT PCP - General 09/22/17 07/06/19 100 [place] [address] documented as of this encounter
--- OUTSIDE RECORDS SUMMARY | 2021-10-24 10:43 | XMS_ITS | Encounter Summary ---
:1945 Author Organization [facility] Address [address] [place] [address] Care Team Providers Name Role Phone Adriane Patel Ronak RUDDN, NEIGHBORHOOD AIDE Primary Care Provider [phone] Encounter Details Date Type Department Care Team Description 04/13/2019 Patient Outreach SE Care Coordination Abbie Ramesh, [address] [place] [address] [place] [address] [place] [address] Social History Tobacco Use Types [...] to discuss: 1. Diabetes-blood sugars 2. Medications SPECTROMETRY MANAGER Abbie Ramesh RN - 04/13/2019 11:15 AM CST Care Plan - Care Coordination Contact Date: 04/15/2019 10:30 AM Called for monthly follow up and progress; Left message to call back.. This is second attempt to call this month. When patient returns phone call, would like to discuss: 1. Diabetes-blood sugars 2. Medications SPECTROMETRY MANAGER documented in this encounter Plan of Treatment Not on filedocumented as of this encounter Goals Goal Patient Goal Associated Recent Patient-Stated? Author Type Problems Progress Routine Health General No change No Peter Ramesh (02/05/2021 Abbie Murray, 11:19 AM MASS SPECTROMETRY MANAGER) RN Note: Formatting of this note is differe nt from the original. Routine Health Management Care Team Patient Care Team: Corrine Vazquez MD as PCP - [facility] Yossi Potts RN as Registered Nurse (Diabetes Education) Abbie Ramesh RN as Gastroenterology Manager Future Scheduled Appointments No future appointments. Health Maintenance Health Maintenance Topic Date Due Urine Protein Screening 05/31/2020 Lipid Panel 09/05/2020 Glaucoma Screening 67+ Yr 12/25/2020 Ophthalmology Exam 12/25/2020 [facility] Annual Wellness 01/12/2021 Hemoglobin A1C 01/24/2021 Diabetic Foot Exam 03/16/2021 Colorectal Cancer Screening: Colonoscop y 05/21/2021 Fall Risk Performed 06/05/2021 Mammogram 12/03/2021 COVID-19 Vaccine Completed [facility] Pneumococcal Vaccine: <64 Completed [facility] Pneumococcal Vaccine: 65+ Years Com pleted HPV Vaccines Aged Out Notes: Due: Urine Protein screening Eye exam AWV A1C Lipid panel documented as of this encounter Visit Diagnoses Not on filedocumented in this encounter Care Teams Boat Rigger Relationship Specialty Start Date End Date Adriane Patel APRN, NEIGHBORHOOD AIDE PCP - General 09/22/17 07/06/19 100 [facility] [place] [address] documented as of this encounter
--- OUTSIDE RECORDS SUMMARY | 2021-10-24 10:44 | XMS_ITS | Encounter Summary ---
:1945 Author Organization [facility] Address [address] [place] [address] Care Team Providers Name Role Phone Adriane Patel GUNSTOCK REPAIRER, PROFESSIONAL SKATEBOARDER Primary Care Provider [phone] Reason for Visit Reason Onset Date Comments Med reaction 12/08/2018 Encounter Details Date Type Department Care Team Description 12/08/2018 Telephone [place] Adriane Patel, Med reaction [address] GUNSTOCK REPAIRER, PROFESSIONAL SKATEBOARDER [place], [place] [address] [address] [facility] [address] [phone] [place], [place] [address] Social History Tobacco Use [...] Notes Telephone Encounter - Adriane Patel APRN, PROFESSIONAL SKATEBOARDER - 12/08/2018 1:48 PM CDT Called the [...] was prescribed yesterday. Please call Pt at [phone] to advise. documented in this encounter Plan of Treatment Not on filedocumented as of this encounter Visit Diagnoses Not on filedocumented in this encounter Care Teams Entry Level Civil Engineer Relationship Specialty Start Date End Date Adriane Patel APRN, LEONARD PCP - General 09/22/17 07/06/[address] [place] [address] [place] [address] documented as of this encounter
--- OUTSIDE RECORDS SUMMARY | 2021-10-24 10:44 | XMS_ITS | Encounter Summary ---
:1945 Author Organization [facility] Address [address] [place] [address] Care Team Providers Name Role Phone Adriane Patel Ronak SHIP UNLOADER, OIL WINTERIZER Primary Care Provider [phone] Reason for Visit Reason Comments Eye Problem blurry vision Encounter Details Date Type Department Care Team Description 12/16/2018 Office Visit [place]levan Carl [place], Vision loss (Primary [address] [place] Dx) [place], [place] [address] Social History Tobacco Use [...] without improvement. She has been seen by operations/dispatch and examination was essentially negative.She however is fairly certain that her vision [...] each day, Disp: 90 tablet, Rfl: 3 ??? erythromycin (ROMYCIN) 5 MG/GM ophthalmic ointment, Apply to affected eye(s) 4 (four) times a day for 7 days (Patient not taking: Reported on 12/16/2018), Disp: 3.5 g, Rfl: 0 ??? quiyvxbi-ohcbopkvc-ccgjexxjfjmpj (MAXITROL) 3.5-48512-6.1 ophthalmic suspension, Administer 1 drop into affected [...] dilated from her recent exam by the operations/dispatch Assessment 1. Persistent eye drainage with reported vision loss. 2. Immunosuppressant. Plan 1. I am concerned about her complaints about decreased vision. She has spoken to her field property loss specialist and the field property loss specialist had recommended that she see MD. I discussed this with her and felt that the MD she needs to see as an waiter/waitress. She is in agreement and I set her up with appointment Dr. Gee ramirez in [place] for tomorrow. 2. When it settles down she will get her flu shot. documented in this encounter Plan of Treatment Not on filedocumented as of this encounter Visit Diagnoses Diagnosis Vision loss - Primary Unspecified visual loss documented in this encounter Care Teams Package Dyeing Machine Operator Relationship Specialty Start Date End Date Adriane Patel APRN, OIL WINTERIZER PCP - General 09/22/17 07/06/19 100 [place] [address] documented as of this encounter
--- OUTSIDE RECORDS SUMMARY | 2021-10-24 10:44 | XMS_ITS | Encounter Summary ---
:1945 Author Organization [facility] Address [address] [place] [address] Care Team Providers Name Role Phone Adriane Patel Ronak DIESEL DRAGLINE OPERATOR, CASTING MACHINE SET UP OPERATOR Primary Care Provider [phone] Encounter Details Date Type Department Care Team Description 12/02/2018 Telephone SE Endocrinology Bacilio Stewart MBBS [address] [place] [address] [place] [address] [phone] (Wo rk) Social History Tobacco Use Types [...] CDT Thank you. Telephone Encounter - Ene Diego - 12/02/2018 8:37 AM CDT Patient and [...] on filedocumented in this encounter Care Teams Building Services Engineer Relationship Specialty Start Date End Date Adriane Patel APRN, CASTING MACHINE SET UP OPERATOR PCP - General 09/22/17 07/06/19 100 [facility] [place] [address] documented as of this encounter
--- OUTSIDE RECORDS SUMMARY | 2021-10-24 10:44 | XMS_ITS | Encounter Summary ---
:1945 Author Organization [facility] Address [address] [place] [address] Care Team Providers Name Role Phone Adriane Patel LEGAL RECEPTIONIST, VIDEO PRODUCTION ENGINEER Primary Care Provider [phone] Encounter Details Date Type Department Care Team Description 07/19/2018 Telephone [place] Adriane Patel, [address] LEGAL RECEPTIONIST, VIDEO PRODUCTION ENGINEER [place], [place] [address] [facility] [phone] [place], [place] [address] Social History Tobacco Use [...] Notes Telephone Encounter - Adriane Patel APRN, VIDEO PRODUCTION ENGINEER - 07/19/2018 2:38 PM CDT The patient reports she continues to have lower extremity edema, and will contact your no bake molder. documented in this encounter Plan of Treatment Not on filedocumented as of this encounter Visit Diagnoses Not on filedocumented in this encounter Care Teams Chemistry Intern Relationship Specialty Start Date End Date Adriane Patel APRN, CNP PCP - General 09/22/17 07/06/19 100 [place] [address] documented as of this encounter
--- OUTSIDE RECORDS SUMMARY | 2021-10-24 10:44 | XMS_ITS | Encounter Summary ---
:1945 Author Organization [facility] Address [address] [place] [address] Care Team Providers Name Role Phone Adriane Patel Ronak ENERGY SYSTEMS ENGINEER, BUDGET RECORD CLERK Primary Care Provider [phone] Encounter Details Date Type Department Care Team Description 07/26/2018 Orders Only SE Endocrinology Bacilio Stewart, Type 2 diabetes mellitus wit h other specified complication, without long-term current use of insulin (HCC) (Primary Dx); [address] MBBS Type 2 diabetes mellitus without complic ation, without long-term current use of insulin (HCC) [place] [address] [address] [facility] [phone] [place] [address] Social History Tobacco Use Types Packs/Day Years [...] (HCC) documented in this encounter Care Teams Freelance Translator Relationship Specialty Start Date End Date Adriane Patel, ENERGY SYSTEMS ENGINEER, BUDGET RECORD CLERK PCP - General 09/22/17 07/06/19 100 [facility] [place] [address] documented as of this encounter
--- OUTSIDE RECORDS SUMMARY | 2021-10-24 10:44 | XMS_ITS | Encounter Summary ---
:1945 Author Organization [facility] Address [address] [place] [address] Care Team Providers Name Role Phone Adriane Patel INFORMATICA MDM DEVELOPER, DRAIN TECHNICIAN Primary Care Provider [phone] Reason for Visit Reason Onset Date Comments [facility] 12/09/2018 Encounter Details Date Type Department Care Team Description 12/09/2018 Telephone [place] Adriane Patel, [facility] [address] INFORMATICA MDM DEVELOPER, DRAIN TECHNICIAN [place], [place] [address] [facility] [phone] [place], [place] [address] Social History Tobacco Use [...] red and gunky. Please call Pt at [phone] to advise. documented in this encounter Plan of Treatment Not on filedocumented as of this encounter Visit Diagnoses Diagnosis Conjunctivitis of both eyes, unspecified conjunctivitis type - Primary documented in this encounter Care Teams Tank Farm Attendant Relationship Specialty Start Date End Date Adriane Patel APRN, LEONARD PCP - General 09/22/17 07/06/19 100 [place] [address] documented as of this encounter
--- OUTSIDE RECORDS SUMMARY | 2021-10-24 10:44 | XMS_ITS | Encounter Summary ---
:1945 Author Organization [facility] Address [address] [place] [address] Care Team Providers Name Role Phone Adriane Patel Ronak INSURANCE APPRAISER, CUSTOM TAILOR APPRENTICE Primary Care Provider [phone] Reason for Visit Reason Comments Diabetes Encounter Details Date Type Department Care Team Description 12/01/2018 Office Visit SE Endocrinology Bacilio Stewart, Type 2 diabetes mellitus wit h other specified complication, unspecified whether penitentiary insulin use (HCC) (Primary Dx); [address] [facility] MBBS Mixed hyperlipidemia; [place] [address] [address] [facility] Stage 3 chronic kidney disease (HCC); [phone] [place], [place] Essential hype rtension; [address] Type 2 diabetes mellitus with other spec ified complication, without long-term current use of insulin ([facility]) Social History Tobacco Use Types [...] insulin, currently Glargine 13 units daily. Our clinical unit educator, Denny Potts, has been in touch [...] Last eye exam showed no retinopathy in [place]. Denies any numbness or tingling sensation. No [...] file Gets together: Not on file Attends alevism service: Not on file Active member of [...] coordination of care. Bacilio Stewart MD Staff Light Out Examiner Adriane Patel APRN, LEONARD - 12/01/2018 9:00 AM CDT Reviewed. documented in this encounter Plan of Treatment Not on filedocumented as of this encounter Results (ABNORMAL) Hemoglobin A1c (03/01/2019 11:39 AM SPINE SURGEON) Analysis Performed At [facility] Time Signature Hemoglobin A1C 8.8 (H) 4.0 - 5.6 03/02/2019 [place] % A1C 1:45 PM [facility] Comment: Reference [...] Volume Laterality Blood 03/01/2019 11:39 03/02/2019 AM SPINE SURGEON 12:55 PM SPINE SURGEON Bacilio DELA CRUZ LAB BLOOD ORDERABLES Performing Organization Address City/State/ZIP Code Phon e Number [facility] [address] [place] [address] documented in this encounter Visit Diagnoses Diagnosis Type 2 diabetes mellitus with other spec ified complication, unspecified whether penitentiary insulin use (HCC) - Primary Mixed hyperlipidemia Stage 3 chronic kidney disease (HCC) Essential hypertension Unspecified essential hypertension Type 2 diabetes mellitus with other spec ified complication, without long-term current use of insulin (HCC) documented in this encounter Care Teams Health Editor Relationship Specialty Start Date End Date Adriane Patel APRN, CUSTOM TAILOR APPRENTICE PCP - General 09/22/17 07/06/19 100 [facility] [place] [address] documented as of this encounter
--- OUTSIDE RECORDS SUMMARY | 2021-10-24 10:44 | XMS_ITS | Encounter Summary ---
:1945 Author Organization [facility] Address [address] [place] [address] Care Team Providers Name Role Phone Adriane Patel Ronak RUDDN, REGIONAL HR MANAGER Primary Care Provider [phone] Encounter Details Date Type Department Care Team Description 08/02/2018 Telephone SE Diabetic Education 2nd Bacilio Stewart MBBS Floor [address] [facility] SE [address] [place] [address] [place], [place] [address] [phone] Social History Tobacco Use Types Packs/Day Years [...] I stated that I would like to talk with her in a couple of days to see what her blood sugars are like after restarting the pills and forpossible insulin adjustment at that time. We will documented in this encounter Plan of Treatment Not on filedocumented as of this encounter Visit Diagnoses Not on filedocumented in this encounter Care Teams Manager Animation Relationship Specialty Start Date End Date Adriane Patel APRN, REGIONAL HR MANAGER PCP - General 09/22/17 07/06/19 100 [facility] [place] [address] documented as of this encounter
--- OUTSIDE RECORDS SUMMARY | 2021-10-24 10:44 | XMS_ITS | Encounter Summary ---
:1945 Author Organization [facility] Address [address] [place] [address] Care Team Providers Name Role Phone Adriane Patel WEB CONTENT WRITER, COVERING MACHINE OPERATOR HELPER Primary Care Provider [phone] Encounter Details Date Type Department Care Team Description 07/20/2018 Telephone [place]ie [place] Adriane Patel, [address] WEB CONTENT WRITER, COVERING MACHINE OPERATOR HELPER [place], [place] [address] [facility] [address] [phone] [place], [place] [address] Social History Tobacco Use [...] Notes Telephone Encounter - Adriane Patel APRN, COVERING MACHINE OPERATOR HELPER - 07/20/2018 4:24 PM CDT The patient will start a low dose of Lasix 10 mg daily x 7 days and will be educated on insulin injection. documented in this encounter Plan of Treatment Not on filedocumented as of this encounter Visit Diagnoses Not on filedocumented in this encounter Care Teams Flagman Relationship Specialty Start Date End Date Adriane Patel APRN, LEONARD PCP - General 09/22/17 07/06/19 100 [place] [address] documented as of this encounter
--- OUTSIDE RECORDS SUMMARY | 2021-10-24 10:44 | XMS_ITS | Encounter Summary ---
:1945 Author Organization [facility] Address [address] [place] [address] Care Team Providers Name Role Phone Adriane Patel DIGITAL MEDIA SPECIALIST, HEAD COUNSELOR Primary Care Provider Encounter Details Date Type Department Care Team Description 10/28/2018 Telephone [place]ie [place] Adriane Patel, [address] DIGITAL MEDIA SPECIALIST, HEAD COUNSELOR [place], [place] [address] [address] [facility] [address] [phone] [place], [place] [address] Social History Tobacco Use [...] Cold-no URI-no Dizziness-no Weakness-no Per Adriane Patel HEAD COUNSELOR: We can see her tomorrow but if anything worsen's or changes that she needs to go straight to the ER or call 911. Marcial understood this plan of care and is alright with seeing us tomorrow. documented in this encounter Plan of Treatment Not on filedocumented as of this encounter Visit Diagnoses Not on filedocumented in this encounter Care Teams Pneumatic Jacketer Relationship Specialty Start Date End Date Adriane Patel APRN, HEAD COUNSELOR PCP - General 09/22/17 07/06/19 100 [facility] [place] [address] documented as of this encounter
--- OUTSIDE RECORDS SUMMARY | 2021-10-24 10:44 | XMS_ITS | Encounter Summary ---
:[address] [facility] Address [address] [place] [address] Care Team Providers Name Role Phone Adriane Patel Ronak CONCRETE TRUCK DRIVER, INTELLIGENCE OPERATIONS Primary Care Provider [phone] Reason for Visit Reason Onset Date Comments Med Refill 10/21/2018 Encounter Details Date Type Department Care Team Description 10/21/2018 Refill SE Endocrinology Bacilio Stewart, Type [address] mellitus [address] [facility] [place] [address] [address] [facility] complication, without [phone] [place] [address] insulin ([facility]) Social History Tobacco Use Types Packs/Day [...] Telephone Encounter - Rebecca Ibrahim MA - 10/21/2018 4:56 PM CDT Received fax from the pharmacy stating that patient's dose has increased to 12 units. Pharmacy is requesting an updated prescription. Rx pended for your approval. documented in this encounter Plan of Treatment Not on filedocumented as of this encounter Visit Diagnoses Diagnosis Type 2 diabetes mellitus with other spec ified complication, without long-term current use of insulin (HCC) documented in this encounter Care Teams Leak Detection Engineer Relationship Specialty Start Date End Date Adriane Patel APRN, INTELLIGENCE OPERATIONS PCP - General 09/22/17 07/06/19 100 [facility] [place] [address] documented as of this encounter
--- OUTSIDE RECORDS SUMMARY | 2021-10-24 10:44 | XMS_ITS | Encounter Summary ---
:1945 Author Organization [facility] Address [address] [place] [address] Care Team Providers Name Role Phone Adriane Patel HEAD CASHIER, DENTAL FINANCIAL COORDINATOR Primary Care Provider [phone] Reason for Visit Reason Comments Nasal Congestion Cough Encounter Details Date Type Department Care Team Description 11/23/2018 Office Visit [place] Carl Stinson MD Acute non-recurrent sinusiti s, unspecified location (Primary Dx); [address] Adriane Patel, HEAD CASHIER, DENTAL FINANCIAL COORDINATOR [address] [place] [address] Conjunctivitis of both eyes, [place] [address] Social History Tobacco Use Types Packs/Day Years [...] each, Rfl: 3 ??? ACCU-[place]K FAST[place]IX [place]ANC[place] [facility] [place] Check blood glucose 4 times a day, [...] day, Disp: 90 tablet, Rfl: 3 ??? amoxicillin (AMOXIL) [...] hours while awake. The patient willcontact her carpentry supervisor, to determine if they will continue the [...] type documented in this encounter Care Teams Fuel Technician Relationship Specialty Start Date End Date Adriane Patel APRN, DENTAL FINANCIAL COORDINATOR PCP - General 09/22/17 07/06/[address] [place] [address] documented as of this encounter
--- OUTSIDE RECORDS SUMMARY | 2021-10-24 10:44 | XMS_ITS | Encounter Summary ---
:1945 Author Organization [facility] Address [address] [place] [address] Care Team Providers Name Role Phone Adriane Patel OUTREACH CLINICIAN, HYPERTRICHOLOGIST Primary Care Provider [phone] Reason for Visit Reason Onset Date Comments UTI 12/07/2018 Encounter Details Date Type Department Care Team Description 12/07/2018 Telephone [place] Adriane Patel, UTI [address] OUTREACH CLINICIAN, HYPERTRICHOLOGIST [place], [place] [address] [address] [facility] [address] [phone] [place], [place] [address] Social History Tobacco Use [...] and past antibiotic. Please call her at [phone]. documented in this encounter Plan of Treatment Not on filedocumented as of this encounter Visit Diagnoses Not on filedocumented in this encounter Care Teams Computer Software Engineer Relationship Specialty Start Date End Date Adriane Patel APRN, HYPERTRICHOLOGIST PCP - General 09/22/17 07/06/19 [address] [facility] [place] [address] documented as of this encounter
--- OUTSIDE RECORDS SUMMARY | 2021-10-24 10:44 | XMS_ITS | Encounter Summary ---
:1945 Author Organization [facility] Address [address] [place] [address] Care Team Providers Name Role Phone Adriane Patel Ronak TARGET TRIMMER, WEEKEND RECEPTIONIST Primary Care Provider [phone] Encounter Details Date Type Department Care Team Description 10/29/2018 Lab [place] Dyspnea, unspecified type; [address] Type 2 diabetes mellitus wit h other specified complication, unspecified whether moth exterminator insulin use (HCC) [place], [place] [address] Social History Tobacco Use [...] procedure are i n the results section. NT-PROBNP Routine 10/29/2018 11:40 Dyspnea, unspecified Res ults for this AM CDT type procedure are i n the results section. HEMOGLOBIN A1C Routine 10/29/2018 11:40 Type 2 diabetes Result s for this AM CDT mellitus with other procedur e are in specified the results complication, section. unspecified whether moth exterminator insulin use (HCC) LIPID PANEL Routine 10/29/2018 [...] CDT) athologist Signature GFR 40 (A) 10/29/2018 [facility] 12:04 PM T [facility] 49 (A) 10/29/2018 [facility] [place] GFR 12:04 PM T [facility] Comment: GFR calculated from serum creatinine v alue Chronic Kidney Disease less than 60 mL/m in/1.73 m2 Kidney Failure less than 15 mL/min/1.73 m2 Note: effective 07/01/06 IDMS-Traceable MDRD Study Equation used. Specimen Anatomical Collection Method Collection Time Receive d Time (Source) Location / / Volume Laterality 10/29/2018 11:40 10/29/2018 AM CDT 11:40 AM CDT Adriane Patel APRN, WEEKEND RECEPTIONIST LAB BLOOD ORDERABLES Performing Organization Address City/State/ZIP Code Phon e Number [facility] [address] [place] [address] (ABNORMAL) Hemoglobin A1c (10/29/2018 11:40 AM CDT) Analysis Performed At Patho logist Time Signature Hemoglobin A1C 8.0 (H) 4.0 - 5.6 10/29/2018 [place] % A1C 7:20 PM [facility] [...] / Volume Laterality Blood 10/29/2018 11:40 10/29/2018 6:21 AM CDT PM CDT Bacilio SETHIBS LAB BLOOD ORDERABLES Performing Organization Address City/State/ZIP Code Phon e Number [facility] [address] [place] [address] (ABNORMAL) CBC Branch Off w/Diff (10/29/2018 11:40 AM CDT) [facility] gist Method Time Signature WBC 5.7 3.5 - 10.5 10/29/2018 [facility] [place] K/uL 12:04 PM CDT [place] RBC 3.74 (L) 3.90 - 10/29/2018 [facility] [place] 5.00 M/uL 12:04 PM CDT [place] Hemoglobin 11.0 (L) 12.0 - 10/29/2018 [facility] [place] 15.5 g/dL 12:04 PM CDT [place] Hematocrit 33.8 (L) 35.0 - 10/29/2018 [facility] [place] 44.0 % 12:04 PM CDT [place] Platelets 174 150 - 450 10/29/2018 [facility] [place] K/uL 12:04 PM CDT [place] MCV 90.4 81.6 - 10/29/2018 [facility] [place] 98.3 fL 12:04 PM CDT [place] MCH 29.4 26.0 - 10/29/2018 [facility] [place] 32.0 pg 12:04 PM CDT [place] MCHC 32.5 32.0 - 10/29/2018 [facility] [place] 36.0 g/dL 12:04 PM CDT [place] RDW 12.8 11.9 - 10/29/2018 [facility] [place] 15.5 % 12:04 PM CDT [place] Lymphocytes % 22.0 18.0 - 10/29/2018 [facility] [place] 45.0 % 12:04 PM CDT [place] Mid-size Cells 7.0 3.3 - 10.1 10/29/2018 [facility] [place] % 12:04 PM CDT [place] Granulocytes/Jean Claude 71.0 45.8 - 10/29/2018 [facility] JAMES trophils 73.7 % 12:04 PM CDT [place] Lymphocytes 1.3 0.9 - 2.9 10/29/2018 [facility] JAMES Absolute K/uL 12:04 PM CDT [place] MIDS Absolute 0.4 0.2 - 0.8 10/29/2018 [facility] [place] K/uL 12:04 PM CDT [place] Granulocytes/Jean Claude 4.0 2.1 - 8.7 10/29/2018 [facility] JAMES trophils K/uL 12:04 PM CDT [place] Absolute Specimen Anatomical Collection Method Collection Time Receive d Time (Source) Location / / Volume Laterality Blood (Blood, 10/29/2018 11:40 10/29/2018 Venous) AM CDT 12:01 PM CDT Adriane Patel APRN, WEEKEND RECEPTIONIST LAB BLOOD ORDERABLES Performing Organization Address City/State/ZIP Code Phon e Number [facility] [place] [address] [place] [address] (ABNORMAL) Lipid panel (10/29/2018 11:40 AM CDT) athologist Signature Cholesterol 243 (A) 0 - 199 10/29/2018 [facility] mg/dL 6:49 PM CDT [facility]ENTER [facility] Comment: Recommended by National Cholesterol Education Program (ATP III) -------- Cholesterol Ranges -------- <200 ? Desirable 200-239 ? Borderline high >=240 ? High Triglycerides 340 (A) 0 - 149 mg/dL 10/29/2018 6:49 PM CDT [facility] Comment: -------- TRIG Ranges -------- <150 ?Normal 150-199 ? Borderline high 200-499 ? High >=500 ? Very high HDL 36 (A) 40 - 60 mg/dL 10/29/2018 6:49 PM CDT [facility] Comment: -------- HDL Ranges -------- <40 ?Low 40-59 ?Normal >=60 ? Optimal LDL Calculated 139 (A) 0 - 99 mg/dL 10/29/2018 6:49 PM CDT [facility] Comment: -------- LDL Ranges -------- <100 ? Optimal 100-129 ?Near optimal/above op timal 130-159 ?Borderline high 160-189 ?High >=190 ?Very high Specimen Anatomical Collection Method Collection Time Receive d Time (Source) Location / / Volume Laterality Blood (Blood, 10/29/2018 11:40 10/29/2018 6:21 Venous) AM CDT PM CDT Adriane Patel APRN, WEEKEND RECEPTIONIST LAB BLOOD ORDERABLES Performing Organization Address City/State/ZIP Code Phon e Number [facility] [address] [place] [address] (ABNORMAL) BNPNT (10/29/2018 11:40 AM CDT) P athologist Signature BNP 258 (H) 5 - 125 10/29/2018 [facility] pg/mL 7:09 PM CDT [facility] [...] Volume Laterality Blood (Blood, 10/29/2018 11:40 10/29/2018 6:21 Venous) AM CDT PM CDT Adriane Patel APRN, WEEKEND RECEPTIONIST LAB BLOOD ORDERABLES Performing Organization Address City/State/ZIP Code Phon e Number [facility] [address] [place], [place] [id number] (ABNORMAL) Basic metabolic panel (10/29/2018 11:40 AM CDT) P athologist Signature Sodium 139 135 - 145 10/29/2018 [facility] [place] mmol/L 12:04 PM CDT [place] Potassium 4.1 3.5 - 5.1 10/29/2018 [facility] [place] mmol/L 12:04 PM CDT [place] Comment: . Chloride 100 98 - 107 mmol/L 10/29/2018 12:04 PM CDT [facility] [place] Comment: . CO2 27 22 - 29 mmol/L 10/29/2018 12:04 PM CDT O [place] Comment: . Creatinine 1.3 (H) 0.4 - 1.2 mg/dL 10/29/2018 12:04 PM CDT [facility] [place] Comment: . BUN 20 5 - 25 mg/dL 10/29/2018 12:04 PM CDT [facility] [place] Comment: . Glucose 180 (H) 70 - 100 mg/dL 10/29/2018 12:04 PM [facility] C DANA TY TY CDT Calcium, Total,S 9.5 8.4 - 10.2 mg/dL 10/29/2018 12:04 PM [facility] [place] CDT Comment: . Fasting? No 10/29/2018 12:02 PM CDT [facility] [place] Comment: 1+ lipemic Specimen Anatomical Collection Method Collection Time Receive d Time (Source) Location / / Volume Laterality Blood (Blood, 10/29/2018 11:40 10/29/2018 Venous) AM CDT 12:01 PM CDT Adriane Patel APRN, WEEKEND RECEPTIONIST LAB BLOOD ORDERABLES Performing Organization Address City/State/ZIP Code Phon e Number [facility] [place] [address] [place] [address] documented in this encounter Visit Diagnoses Diagnosis Dyspnea, unspecified type Type 2 diabetes mellitus with other spec ified complication, unspecified whether retirement insulin use (HCC) documented in this encounter Care Teams Shared Services Manager Relationship Specialty Start Date End Date Adriane Patel APRN, WEEKEND RECEPTIONIST PCP - General 09/22/17 07/06/19 100 [facility] [place] [address] documented as of this encounter
--- OUTSIDE RECORDS SUMMARY | 2021-10-24 10:44 | XMS_ITS | Encounter Summary ---
:1945 Author Organization [facility] Address [address] [place] [address] Care Team Providers Name Role Phone Adriane Patel SILVICULTURE PROFESSOR, PMO CONSULTANT Primary Care Provider [phone] Encounter Details Date Type Department Care Team Description 08/16/2018 Telephone [place]ie [place] Adriane Patel, [address] SILVICULTURE PROFESSOR, PMO CONSULTANT [place], [place] [address] [address] [facility] [address] [phone] [place], [place] [address] Social History Tobacco [...] Marcial is calling because she saw her scientist electronics, Dr. Currie at [place]. He told her that her cholesterol is [...] on filedocumented in this encounter Care Teams Shank Faker Relationship Specialty Start Date End Date Adriane Patel APRN, PMO CONSULTANT PCP - General 09/22/17 07/06/[address] [place] [address] [place] [address] documented as of this encounter
--- OUTSIDE RECORDS SUMMARY | 2021-10-24 10:44 | XMS_ITS | Encounter Summary ---
:1945 Author Organization [facility] Address [address] [place] [address] Care Team Providers Name Role Phone Adriane Patel DRAWER IN, LINE ERECTOR Primary Care Provider [phone] Reason for Visit Reason Comments Diabetes Type 2 Diabetes, now using i nsulin Consultation (Routine) - Closed Specialty Diagnoses / Procedures Referred By Contact Refer red To Contact Endocrinology Diagnoses Type 2 diabetes mellitus with other specified complication, without long-term current use of insulin (HCC) Bacilio Stewart MBBS [address] [place] [address] Referral ID Status Reason Start Date Expiration Date Visits V isits Requested Authorized [id number] Closed Specialty 07/19/2018 07/20/2019 1 1 Services Required Encounter Details Date Type Department Care Team Description 07/30/2018 Office Visit SE Diabetic Education Courtney Stewart mmad, MBBS [address] [place] [address] Type 2 diabetes 2nd Floor Yossi Potts RN 210 [place] [address] mellitus with other [address] [place] [address] complication, unspecified whe ther adjunct faculty for medical terminology insul in use (HCC) Social History Tobacco [...] 12/23/2018 organizations such as congregation groups, unions, [employer] or athletic groups, or school groups? [...] Potts RN - 07/30/2018 10:00 AM CDT [facility] Patient Name: Marcial Adams Patient Identifier: [id number] Service Location: [facility] DIABETIC EDUCATION 2ND FLOOR [address] [place] [id number] Service Date: 07/30/2018 PATIENT EDUCATION- DIABETES VISIT LOCATION: [facility] REFERRING CLINICIAN: JOSE DE JESUS Austin REFERRAL [...] Basal Calorie Needs: Race/Ethnicity: White/ Preferred Language: Tamazight PERTINENT LABS: Hemoglobin A1C Lab Results Component [...] 2 MEDICATIONS: Last updated by: Adriane Patel, DRAWER IN, LINE ERECTOR On: 07/15/2018 DIABETES CARE ASSESSMENT: Blood Glucose Testing: Brand/Meter: Accu-Chek Guide Test Strips: Accu-Chek Guide Lancets: Accu-Chek Fast-Clix Blood Glucose target range: 100-140 mg/dL Blood Glucose Testing: check sugars twice a day, fasting and alternating before meals and bedtime. Insulin Pump: No Glucose Sensor: No Year of diabetes diagnosis: 2007 Previous diabetes education[place] [facility] [place]Ed: 2014, 2016, 2017. MEDICATION AND MONITORING [...] techniques- Competent. Sharps disposal- Competent. LOWERING RISKS [place] State route driver salesperson license requirements when using insulin (non-commercial) - [...] little other information about site selection and rotation, or about storing insulin. These were reviewed. We [...] change. I did give the patient a handout explaining, pattern management with long acting insulin, and [...] records. At their request, I also reviewed [employer] route driver salesperson license (non-commercial) requirements for personsusing insulin. They were also given handouts relating to this. Follow-up: As above, I would like to talk with the patient, at least once a week, to review blood sugar recordsand to make insulin adjustment; also to see if patient can safely practice pattern management. Scheduled in clinic visits: 08/27/2018: With Dr. Stewart. 08/27/2018: With me. At that visit would want to review other topics relating to the use of insulin (sick day management,tips for travel, physical activity and insulin and mention the Glucagon Emergency Kit). May also askif they have questions relating to other diabetes [...] and bedtime. Patient reported achievement: All of the time. 2. To get help with insulin adjustment, I will talk with the RN/soybean grower, once a week, , until I am able to confidently do this myself or until my next visit with my multifocal button grinder. Patient reported achievement: New goal DIABETES MEDICATION GOAL: To bring blood sugars into normal range, I will take my medications as directed by my primary care provider/multifocal button grinder. Patient achievement: All of the time Yossi [...] with other spec ified complication, unspecified whether adjunct faculty for medical terminology insulin use (HCC) documented in this encounter Care Teams Heading Up Machine Operator Relationship Specialty Start Date End Date Adriane Patel, DRAWER IN, LINE ERECTOR PCP - General 09/22/17 07/06/19 [address] [place] [address] documented as of this encounter
--- OUTSIDE RECORDS SUMMARY | 2021-10-24 10:44 | XMS_ITS | Encounter Summary ---
:1945 Author Organization [facility] Address [address] [place] [address] Care Team Providers Name Role Phone PatelAdriane henley Ronak PRACTICING DERMATOLOGIST, FILLING WINDER Primary Care Provider [phone] Reason for Visit Reason Comments UTI Encounter Details Date Type Department Care Team Description 12/07/2018 Office Visit Dandy Fernándezine Urinary tract infection with out hematuria, site unspecified (Primary Dx); [address] M, LEONARD RESENDEZ Upper respiratory tract infection, unspe cified type [place] 100 [facility] [address] [place] [address] Social History Tobacco Use Types Packs/Day Years [...] and is under the care of a plate shear operator. No fever, no chills. No nausea,vomiting and/or [...] and is under the care of a plate shear operator in the [facility]. The following portions of the patient's [...] each, Rfl: 3 ??? ACCU-CHEK FASTCLIX LANCETS [facility], Check blood glucose 4 times a day, [...] day, Disp: 90 tablet, Rfl: 3 ??? cephalexin (KEFLEX) 500 MG capsule, Take 1 capsule (500 mg total) by mouth 3 (three) times a dayfor 7 days, Disp: 21 capsule, Rfl: 0 [...] NEGATIVE NEGATIVE mg/dL Final ? ? Specific [place], Urine 12/07/2018 1.020 1.000 ->=1.030 Final ??? [...] culture (clean catch) (12/07/2018 2:55 PM CDT) [facility] Method Time Signature Urine Culture <10,000 12/08/2018 [place] cfu/ml No 12:56 PM CDT [facility]ENTER further ID. LABORATORY Specimen Anatomical Collection Method Collection Time Receive d Time (Source) Location / / Volume Laterality Urine, Clean 12/07/2018 2:55 PM 9 Catch CDT 12:[address] [facility] - 11/17 12:56 PM CDT Patient does not have an Amoxicillin or PCN allergy Adriane Patel APRN, CNP LAB MICROBIOLOGY - GENERA L ORDERABLES Performing Organization Address City/State/ZIP Code Phon e Number [facility] [address] [place] [address] (ABNORMAL) Urinalysis with reflex microscopic (clean catch) (12/07/2018 2:55 PM CDT) [facility] Method Time Signature Type CLEAN CATCH 12/08/2018 [facility] [place] 9:29 AM CDT [place] Color, Urine YELLOW YELLOW 12/08/2018 [facility] [place] 9:29 AM CDT [place] Clarity, CLEAR CLEAR 12/08/2018 [facility] Urine 9:29 AM CDT [place] Glucose, 100 (A) NEGATIVE 12/08/2018 [facility] Urine mg/dL 9:29 AM CDT [place] Bilirubin, NEGATIVE NEGATIVE 12/08/2018 [facility] Urine 9:29 AM CDT [place] Ketones, NEGATIVE NEGATIVE 12/08/2018 [facility] Urine mg/dL 9:29 AM CDT [place] Specific 1.020 1.000 12/08/2018 [facility] [place], ->=1.030 9:29 AM CDT [place] Urine Blood, Urine MODERATE (A) NEGATIVE 12/08/2018 [facility] [place] 9:29 AM CDT [place] pH, Urine 5.5 5.0 - 7.0 12/08/2018 [facility] 9:29 AM CDT [place] Protein, 30 (A) NEGATIVE-TRA 12/08/2018 [facility] Urine CE mg/dL 9:29 AM CDT [place] Urobilinogen, 0.2 0.2 - 1.0 12/08/2018 [facility] Urine E.U./dL 9:29 AM CDT [place] Nitrite, NEGATIVE NEGATIVE 12/08/2018 [facility] Urine 9:29 AM CDT [place] Leukocytes, TRACE (A) NEGATIVE 12/08/2018 [facility] Urine 9:29 AM CDT [place] Specimen Anatomical Collection Method Collection Time Receive d Time (Source) Location / / Volume Laterality Urine (Urine, 12/07/2018 2:55 PM 12/08/19 19 2:56 Clean Catch) CDT PM CDT Adriane Patel APRN, FILLING WINDER LAB URINE ORDERABLES Performing Organization Address City/State/ZIP Code Phon e Number [facility] [place] [address] [place] [address] documented in this encounter Visit Diagnoses Diagnosis Urinary tract infection without hematuri a, site unspecified - Primary Upper respiratory tract infection, unspe cified type Urinary tract infection without hematuri a, site unspecified documented in this encounter Care Teams Melt House Centrifugal Operator Relationship Specialty Start Date End Date Adriane Patel APRN, FILLING WINDER PCP - General 09/22/17 07/06/19 100 ON LICENSE [facility] [place] [address] documented as of this encounter
--- OUTSIDE RECORDS SUMMARY | 2021-10-24 10:44 | XMS_ITS | Encounter Summary ---
:1945 Author Organization [facility] Address [address] [place] [address] Care Team Providers Name Role Phone Dandy Patelmartinez Simons MECHANICAL MANAGER, DRAFTER GEOLOGICAL Primary Care Provider [phone] Reason for Visit Reason Comments Shortness of Breath Encounter Details Date Type Department Care Team Description 10/29/2018 Office Visit Dandy Fernándezine Dyspnea, unspecified [address] M, MECHANICAL MANAGER, DRAFTER GEOLOGICAL type (Primary Dx) [place], [place] 100 [facility] [address] [place] [address] Social History Tobacco Use Types Packs/Day Years [...] each day, Disp: 90 tablet, Rfl: 3 Objective Visit Vitals [...] and understand this plan of care. Adriane aPtel APRN, DRAFTER GEOLOGICAL documented in this encounter Plan of Treatment [...] 04/22/2018 FINDINGS: Heart size is normal. Probable epiperica rdial fat pads, unchanged. Lungs are somewhat hyperinflated suggesting un derlying emphysema, unchanged. Partially calcified aorta. Surgical tellez ges right shoulder. Degenerative changes thoracic spine. IMPRESSION: [...] Signature Sodium 139 135 - 145 10/29/2018 [facility] [place] mmol/L 12:04 PM CDT [place] Potassium 4.1 3.5 - 5.1 10/29/2018 [facility] mmol/L 12:04 PM CDT [place] Comment: . Chloride 100 98 - 107 mmol/L 10/29/2018 12:04 PM CDT [facility] [place] Comment: . CO2 27 22 - 29 mmol/L 10/29/2018 12:04 PM CDT [facility] [place] Comment: . Creatinine 1.3 (H) 0.4 - 1.2 mg/dL 10/29/2018 12:04 PM CDT [facility] [place] Comment: . BUN 20 5 - 25 mg/dL 10/29/2018 12:04 PM CDT [facility] [place] Comment: . Glucose 180 (H) 70 - 100 mg/dL 10/29/2018 12:04 PM [facility] Deana [place] CDT [place], Total,S 9.5 8.4 - 10.2 mg/dL 10/29/2018 12:04 PM [facility] [place] CDT Comment: . Fasting? No 10/29/2018 12:02 PM CDT [facility] [place]INA [place] Comment: 1+ lipemic Specimen Anatomical Collection Method Collection Time Receive d Time (Source) Location / / Volume Laterality Blood (Blood, 10/29/2018 11:40 10/29/2018 Venous) AM CDT 12:01 PM CDT Adriane Patel MECHANICAL MANAGER, DRAFTER GEOLOGICAL LAB BLOOD ORDERABLES Performing Organization Address City/State/ZIP Code Phon e Number [facility] [place] [address] [place] [address] (ABNORMAL) BNPNT (10/29/2018 11:40 AM CDT) athologist Signature BNP 258 (H) 5 - 125 10/29/2018 [facility] pg/mL 7:09 PM CDT CENTER LABORATORY Comment: [...] AM CDT PM CDT Adriane Patel APRN, DRAFTER GEOLOGICAL LAB BLOOD ORDERABLES Performing Organization Address City/State/ZIP Code Phon e Number [facility] [address] [place] [address] (ABNORMAL) Lipid panel (10/29/2018 11:40 AM CDT) athologist Signature Cholesterol 243 (A) 0 - 199 10/29/2018 [facility] mg/dL 6:49 PM CDT CENTER LAB[facility]ATORY Comment: Recommended by National Cholesterol Education Program (ATP III) -------- Cholesterol Ranges -------- <200 ? Desirable 200-239 ? Borderline high >=240 ? High Triglycerides 340 (A) 0 - 149 mg/dL 10/29/2018 6:49 PM CDT [facility] Comment: -------- TRIG Ranges -------- <150 ?Normal 150-199 ? Borderline high 200-499 ? High >=500 ? Very high HDL 36 (A) 40 - 60 mg/dL 10/29/2018 6:49 PM CDT [facility] Comment: -------- HDL Ranges -------- <40 ?Low 40-59 ?Normal >=60 ? Optimal LDL Calculated 139 (A) 0 - 99 mg/dL 10/29/2018 6:49 PM CDT [facility] Comment: -------- LDL Ranges -------- <100 ? Optimal 100-129 ?Near optimal/above op timal 130-159 ?Borderline high 160-189 ?High >=190 ?Very high Specimen Anatomical Collection Method Collection Time Receive d Time (Source) Location / / Volume Laterality Blood (Blood, 10/29/2018 11:40 10/29/2018 6:21 Venous) AM CDT PM CDT Adriane Patel APRN, DRAFTER GEOLOGICAL LAB BLOOD ORDERABLES Performing Organization Address City/State/ZIP Code Phon e Number [facility] [address] [place] [address] (ABNORMAL) CBC Branch Off w/Diff (10/29/2018 11:40 AM CDT) [facility] gist Method Time Signature WBC 5.7 3.5 - 10.5 10/29/2018 [facility] K/uL 12:04 PM CDT [place] RBC 3.74 (L) 3.90 - 10/29/2018 [facility] 5.00 M/uL 12:04 PM CDT [place] Hemoglobin 11.0 (L) 12.0 - 10/29/2018 [facility] 15.5 g/dL 12:04 PM CDT [place] Hematocrit 33.8 (L) 35.0 - 10/29/2018 [facility] [place] 44.0 % 12:04 PM CDT [place] Platelets 174 150 - 450 10/29/2018 [facility] K/uL 12:04 PM CDT [place] MCV 90.4 81.6 - 10/29/2018 [facility] [place] 98.3 fL 12:04 PM CDT [place] MCH 29.4 26.0 - 10/29/2018 [facility] 32.0 pg 12:04 PM CDT [place] MCHC 32.5 32.0 - 10/29/2018 [facility] 36.0 g/dL 12:04 PM CDT [place] RDW 12.8 11.9 - 10/29/2018 [facility] 15.5 % 12:04 PM CDT [place] Lymphocytes % 22.0 18.0 - 10/29/2018 [facility] 45.0 % 12:04 PM CDT [place] Mid-size Cells 7.0 3.3 - 10.1 10/29/2018 [facility] % 12:04 PM CDT [place] Granulocytes/Jean Claude 71.0 45.8 - 10/29/2018 [facility] trophils 73.7 % 12:04 PM CDT [place] Lymphocytes 1.3 0.9 - 2.9 10/29/2018 [facility] Absolute K/uL 12:04 PM CDT [place] MIDS Absolute 0.4 0.2 - 0.8 10/29/2018 [facility] K/uL 12:04 PM CDT [place] Granulocytes/Jean Claude 4.0 2.1 - 8.7 10/29/2018 [facility] trophils K/uL 12:04 PM CDT [place] Absolute Specimen Anatomical Collection Method Collection Time Receive d Time (Source) Location / / Volume Laterality Blood (Blood, 10/29/2018 11:40 10/29/2018 Venous) AM CDT 12:01 PM CDT Adriane Patel APRN, CNP LAB BLOOD ORDERABLES Performing Organization Address City/State/ZIP Code Phon e Number [facility] [place] [place] [address] [place] [address] documented in this encounter Visit Diagnoses Diagnosis Dyspnea, unspecified type - Primary documented in this encounter Care Teams Industrial Analyst Relationship Specialty Start Date End Date Adriane Patel APRN, DRAFTER GEOLOGICAL PCP - General 09/22/17 07/06/19 100 [facility] [place] [address] documented as of this encounter
--- OUTSIDE RECORDS SUMMARY | 2021-10-24 10:44 | XMS_ITS | Encounter Summary ---
:1945 Author Organization [facility] Address [address] [place] [address] Care Team Providers Name Role Phone Adriane Patel ACTIVITY LEADER, CARD DEALER Primary Care Provider [phone] Encounter Details Date Type Department Care Team Description 07/17/2018 Telephone [place] Adriane Patel, [address] ACTIVITY LEADER, CARD DEALER [place], [place] [address] [address] [facility] [address] [phone] [place], [place] [address] Social History Tobacco Use [...] Notes Telephone Encounter - Adriane Patel APRN, CARD DEALER - 07/17/2018 9:43 AM CDT Message left on the patient's answering machine, her she did not need treatment, referring to the urine culture. Will try and contact the patient on Thursday. documented in this encounter Plan of Treatment Not on filedocumented as of this encounter Visit Diagnoses Not on filedocumented in this encounter Care Teams Custodian Athletic Equipment Relationship Specialty Start Date End Date Adriane Patel APRN, CARD DEALER PCP - General 09/22/17 07/06/19 100 [place] [address] documented as of this encounter
--- OUTSIDE RECORDS SUMMARY | 2021-10-24 10:44 | XMS_ITS | Encounter Summary ---
:1945 Author Organization [facility] Address [address] [place] [address] Care Team Providers Name Role Phone Adriane Patel Ronak SPECIALTY PLANT SUPERVISOR, MONKEY TRAINER Primary Care Provider [phone] Encounter Details Date Type Department Care Team Description 12/07/2018 Lab [place] Urinary tract infection [address] without hematuria, site [place], [place] [address] unspecified [phone] Social History Tobacco Use Types Packs/Day Years [...] Diagnosis Comme nts URINALYSIS-MICROSCOP Routine 12/07/2018 2:55 PM Urinary tract Results for this IC EXAM (REFLEXED) CDT infection without proc edure are in hematuria, site the results unspecified section. URINALYSIS WITH Routine 12/07/2018 2:55 PM Urinary tract Resul ts for this REFLEX MICROSCOPIC CDT infection without proc edure are in hematuria, site the results unspecified section. URINE CULTURE Routine 12/07/2018 2:55 PM Urinary tract Results for this CDT infection without procedure are in hematuria, site the results unspecified section. documented in this encounter Results (ABNORMAL) Urinalysis-Microscopic Exam (12/07/2018 2:55 PM CDT) [facility] Method Time Signature Casts, urine NONE SEEN 0-2 Hyaline 12/08/2018 [place] /lpf 1:03 PM [facility] Significant NONE SEEN None Seen 12/08/2018 [place] casts, urine /lpf 1:03 PM [facility] RBC, Urine 4-10 (A) 0 - 3 /hpf 12/08/2018 [place] 1:03 PM [facility] WBC, Urine 0-3 /hpf 12/08/2018 [place] 1:03 PM [facility] Comment: Male Ref Range ? 0-3/hpf Female Ref Range ?? 0-10/hpf Squamous Epithelial, 1+ (A) Few /lpf 12/08/2018 1:03 PM [facility] Urine T [place] [facility] Trans Epithelial, NONE SEEN 0 - 3 /hpf 12/08/2018 1:03 PM [facility] Urine T [facility] Renal Tubular Cells, NONE SEEN 0 - 1 /hpf 12/08[facility]2018 [facility] [place] [facility] Bacteria, Urine FEW None Seen 12/08/2018 1:03 PM [facility] LAB[facility]ORY Specimen Anatomical Collection Method Collection Time Receive d Time (Source) Location / / Volume Laterality 12/07/2018 2:55 PM 9 CDT 12:21 PM CDT Adriane Patel APRN, MONKEY TRAINER LAB URINE ORDERABLES Performing Organization Address City/State/ZIP Code Phon e Number [facility] [address] [place] [address] Urine culture (clean catch) (12/07/2018 2:55 PM CDT) [facility] Method Time Signature Urine Culture <10,000 12/08/2018 [place] cfu/ml No 12:56 PM CDT MEDICAL CENTER further ID. LABORATORY Specimen Anatomical Collection Method Collection Time Receive d Time (Source) Location / / Volume Laterality Urine, Clean 12/07/2018 2:55 PM 9 Catch CDT 12:21 PM CDT Narrative [facility] - 11/17 12:56 PM CDT Patient does not have an Amoxicillin or PCN allergy Adriane Patel APRN, MONKEY TRAINER LAB MICROBIOLOGY - GENERA L ORDERABLES Performing Organization Address City/State/ZIP Code Phon e Number [facility] [address] [place] [address] (ABNORMAL) Urinalysis with reflex microscopic (clean catch) (12/07/2018 2:55 PM CDT) [facility] Method Time Signature Type CLEAN CATCH [...] [place] Specific 1.020 1.000 12/08/2018 [facility] [place], ->=1.030 9:29 AM CDT [place] Urine Blood, [...] CDT [place] Leukocytes, TRACE (A) NEGATIVE 12/08/2018 [facility] [place] Urine 9:29 AM CDT [place] Specimen Anatomical Collection Method Collection Time Receive d Time (Source) Location / / Volume Laterality Urine (Urine, 12/07/2018 2:55 PM 12/08/19 19 2:56 Clean Catch) CDT PM CDT Adriane Patel APRN, MONKEY TRAINER LAB URINE ORDERABLES Performing Organization Address City/State/ZIP Code Phon e Number [facility] [place] [address] [place] [address] documented in this encounter Visit Diagnoses Diagnosis Urinary tract infection without hematuri a, site unspecified documented in this encounter Care Teams Communication Consultant Relationship Specialty Start Date End Date Adriane Patel APRN, MONKEY TRAINER PCP - General 09/22/17 07/06/19 100 [facility] [place] [address] documented as of this encounter
--- OUTSIDE RECORDS SUMMARY | 2021-10-24 10:44 | XMS_ITS | Encounter Summary ---
:1945 Author Organization [facility] Address [address] [place] [address] Care Team Providers Name Role Phone Adriane Patel Ronak BULLDOGGER, FOOD BROKER Primary Care Provider [phone] Reason for Visit Reason Comments Diabetes Type 2 Diabete, using insuli n, follow up Encounter Details Date Type Department Care Team Description 08/31/2018 Office Visit SE Diabetic Education Yossi Potts, T ype 2 diabetes 2nd Floor RN mellitus with other [address] [place] [address] SE complication, [place], [place] [phone] jail insulin use [phone] ([facility]) (Work) Social History Tobacco Use [...] Potts RN - 08/31/2018 9:00 AM CDT [facility] Patient Name: Marcial Adams Patient Identifier: [id number] Service [facility] DIABETIC EDUC[facility] 2ND FLOOR [address] [facility] [address] Service Date: 08/31/2018 PATIENT EDUCATION- DIABETES VISIT LOCATION: [facility] REFERRING CLINICIAN: JOSE DE JESUS [place] REFERRAL [...] Basal Calorie Needs: Race/Ethnicity: White/ Preferred Language: Arabic PERTINENT LABS: Hemoglobin A1C Lab Results Component [...] of diabetes diagnosis: 2007 Previous diabetes education: [facility] Pt.Ed: 2014, 2016, 2018 NURSING DIAGNOSIS: Knowledge [...] and the use of insulin. Patient also givenhandouts relating to these topics. Patient complains that her lancet device is not working well. I did give her a new Accu-Chek Fast- Clix lancet device and briefly showed her how to use that. I stated I would get a prescription started for the lancets that go into this new device. Patient states that she will continue to consider the possibility of using the GLP-1 agonist type ofmedication. If she wants to do that she states that she will contact Dr. Stewart I stated if she startson the new medication and Dr. Stewart wishes to have me help her get started, I would be happy to do that. Otherwise, I suggested that patient and I [...] visit with a registered dietitian, here at [facility], to discuss her food choices and her [...] Patient reported achievement: All of the time. ?? 2. To get help with insulin adjustment, I will talk with the RN/staff educator, once a week, until I am able to confidently do this myself or until my next visit with my teacher education director. Patient reported achievement: Most of the time [...] with other spec ified complication, unspecified whether jail insulin use (HCC) documented in this encounter Care Teams Substation Operator Conversion Relationship Specialty Start Date End Date Adriane Patel, BULLDOGGER, FOOD BROKER PCP - General 09/22/17 07/06/19 100 [facility] [place] [address] documented as of this encounter
--- OUTSIDE RECORDS SUMMARY | 2021-10-24 10:44 | XMS_ITS | Encounter Summary ---
:1945 Author Organization [facility] Address [address] [place] [address] Care Team Providers Name Role Phone Adriane Patel Ronak [employer], CANOPY INSPECTOR Primary Care Provider [phone] Reason for Visit Reason Comments Diabetes Encounter Details Date Type Department Care Team Description 08/27/2018 Office Visit [facility]ocrinology Bacilio Stewart, Type 2 diabetes mellitus wit h other specified complication, unspecified whether assisted insulin use (HCC) (Primary Dx); 210 [facility] MBBS Hyperlipidemia, unspecified hyperlipidem ia type; [place] [address] [place] [address] Essential hypertension; [phone] [place], [place] Stage 3 chroni c kidney disease ([facility]) [address] Social History Tobacco Use Types Packs/Day Years [...] She elected to start basal insulin after lastvisit. Our certified diabetes educator, Denny Potts, has been regularly in touch with her and adjusting insulindose. Currently she is on insulin glargine 12 units daily. Metformin was not restarted due to borderline kidney function. Glucometer showed average 198 with SD 69, range 109-413. Morning sugars are mostly in the good rangebut evening sugars are usually still above goal. Overall, sugars are trending better since starting insulin. She usually checks 2-4 times a day. No recent episodes of hypoglycemia. She eats 3 meals/dayand an afternoon snack. Diet control continues to be a challenge for her. She notices significant spikes in her sugars after eating sweets. No smoking. Last eye exam showed no retinopathy in [place]. Denies any numbness or tingling sensation. No [...] again discussed management of diabetes with her andvarious strategies to improve glycemic control. - Continue [...] about GLP-1 receptor agonist, she is going to review.. - Patient was advised to continue to [...] with the plan. Bacilio Stewart MD Staff Academic Affairs Manager Adriane Patel APRN, LEONARD - 08/27/2018 9:30 AM CDT Reviewed. documented in this encounter Plan of Treatment Not on filedocumented as of this encounter Results (ABNORMAL) Hemoglobin A1c (10/29/2018 11:40 AM CDT) [facility] Time Signature Hemoglobin A1C 8.0 (H) 4.0 - 5.6 10/29/2018 [place] % A1C 7:20 PM CDT MEDICAL CENTER [...] 10/29/2018 6:21 AM CDT PM CDT Bacilio DELA CRUZ LAB BLOOD ORDERABLES Performing Organization Address City/State/ZIP Code Phon e Number [facility] [address] [place] [address] documented in this encounter Visit Diagnoses Diagnosis Type 2 diabetes mellitus with other spec ified complication, unspecified whether assisted insulin use (HCC) - Primary Hyperlipidemia, unspecified hyperlipidem ia type Essential hypertension Unspecified essential hypertension Stage 3 chronic kidney disease (HCC) documented in this encounter Care Teams Health Sciences Department Chair Relationship Specialty Start Date End Date Adriane Patel, [employer], CANOPY INSPECTOR PCP - General 09/22/17 07/06/[address] [place] [address] documented as of this encounter
--- OUTSIDE RECORDS SUMMARY | 2021-10-24 10:44 | XMS_ITS | Encounter Summary ---
:1945 Author Organization [facility] Address [address] [place] [address] Care Team Providers Name Role Phone Adriane Patel Ronak RED CROSS EXECUTIVE DIRECTOR, PAPER BAGS SEWING MACHINE OPERATOR Primary Care Provider [phone] Reason for Visit Reason Comments Sinusitis Conjunctivitis returned after stopping anti biotics Encounter Details Date Type Department Care Team Description 12/01/2018 Office Visit [place] Corrine Vazquez Acute conjunctivitis of [address] [place] both eyes, unspecified [place], [place] [address] acute conju nctivitis type [address] [place] (Primary Dx) [phone] [place] [address] Social History Tobacco Use Types Packs/Day Years [...] again bilateral watery eyes little irritated eyes but not painful not sore a little bit of crusting still by morning time. She is a little bit concerned because every month she gets an infusion of Orencia via her tower control operator secondary to rheumatoid arthritis. She has been on this medication greater than 1 year with goodpositive results. However if she is ill if [...] Primary documented in this encounter Care Teams Bag Presser Relationship Specialty Start Date End Date Adriane Patel, RED CROSS EXECUTIVE DIRECTOR, PAPER BAGS SEWING MACHINE OPERATOR PCP - General 09/22/17 07/06/19 [address] [place] [address] documented as of this encounter
--- OUTSIDE RECORDS SUMMARY | 2021-10-24 10:44 | XMS_ITS | Encounter Summary ---
:1945 Author Organization [facility] Address [address] [place] [address] Care Team Providers Name Role Phone Adriane Patel Ronak SERVICE ATTENDANT [place], PIT HOIST OPERATOR Primary Care Provider [phone] Encounter Details Date Type Department Care Team Description 07/16/2018 Orders Only [facility] Endocrinology Bacilio Stewart, Type [address] [place] [address] specified complication, [place], [place] without long-t erm [address] current use of insulin [phone] ([facility]) (Primary Dx) (Work) Social History Tobacco Use [...] Primary documented in this encounter Care Teams World Language Teacher Relationship Specialty Start Date End Date Adriane Patel, SERVICE ATTENDANT [place], PIT HOIST OPERATOR PCP - General 09/22/17 07/06/19 100 [facility] [place] [address] documented as of this encounter
--- OUTSIDE RECORDS SUMMARY | 2021-10-24 10:45 | XMS_ITS | Encounter Summary ---
:1945 Author Organization [facility] Address [address] [place] [address] Care Team Providers Name Role Phone Adriane Patel APRN, CNP Primary Care Provider [phone] Reason for Referral Consultation (Routine) - Closed Specialty Diagnoses / Procedures Referred By Contact Refer red To Contact Endocrinology Diagnoses Type 2 diabetes mellitus with hyperglycemia, without long-term current use of insulin (HCC) Adriane Patel APRN, CNP [address] [place] [address] Referral ID Status Reason Start Date Expiration Date Visits V isits Requested Authorized [id number] Closed Specialty 07/05/2018 07/06/2019 1 1 Services Required Scheduling Instructions Please call the Endocrinology Strategy Associate desk at [phone] to schedule an appointment. Encounter Details Date Type Department Care Team Description 07/05/2018 Orders Only [place] Adriane Patel, Type 2 diabetes [address] LEONARD RESENDEZ mellitus with [address] hyperglycemia, [id number] [place] [address] without long-term [phone] current use of insulin (HCC) (Primary Dx) [...] organizations such as roman catholic groups, unions, fraEmitless or athletic groups, or school groups? How [...] Priority Associated Order Schedule Diagnoses Ambulatory referral to Outpatient Referral Routine Type 2 diab etes Ordered: Endocrinology mellitus with 07/05/2018 hyperglycemia, without long-term current use of insulin (HCC) documented as of this encounter Visit Diagnoses Diagnosis Type 2 diabetes mellitus with hyperglyce luis, without long-term current use of insulin (HCC) - Primary documented in this encounter Care Teams Bed Spring Maker Relationship Specialty Start Date End Date Adriane Patel, DRILLER AND BROACHER, TRAFFIC OPERATIONS MANAGER PCP - General 09/22/17 07/06/19 100 [facility] [place] [address] documented as of this encounter
--- OUTSIDE RECORDS SUMMARY | 2021-10-24 10:45 | XMS_ITS | Encounter Summary ---
:1945 Author Organization [facility] Address [address] [place] [address] Care Team Providers Name Role Phone Adriane Patel MOLD SETTER, RECRUITING OPERATIONS CONSULTANT Primary Care Provider [phone] Encounter Details Date Type Department Care Team Description 05/12/2018 Orders Only [place] Adriane Patel, Type 2 diabetes [address] MOLD SETTER, RECRUITING OPERATIONS CONSULTANT mellitus with other [place] [address] specified [address] [place] [address] complication, without [phone] long-ter m current use of insulin (HCC [...] nts COLOGUARD Routine 05/12/2018 5:00 AM Results f or this CDT procedure are i n the results section . documented in this encounter Results (ABNORMAL) Hemoglobin A1c (05/24/2018 11:44 AM CDT) Analysis Performed At Patho logist Time Signature Hemoglobin A1C 8.5 (H) 4.0 - 5.6 05/25/2018 [place] % A1C 1:14 PM CDT MEDICAL CENTER [...] CDT 12:36 PM CDT Adriane Patel APRN, RECRUITING OPERATIONS CONSULTANT LAB BLOOD ORDERABLES Performing Organization Address City/State/ZIP Code Phon e Number [facility] [address] [place] [address] Cologuard (05/12/2018 5:00 AM CDT) [facility] Method Time Signature Cologuard Negative Not Applicable EXACT result Vaultize, [employer]lytics Comment: A negative result indicates a low [...] were screened with both Cologuard and colonoscopy. (Imperiale T. et al, N Eng l J Med 2014;370(14):8569-5802) ?? COLOG UARD RE-SCREENING RECOMMENDATION: Periodic routine colorectal cancer screening is an important part of preventive healthcare for asymptomatic persons at average r isk for colorectal cancer. ??Following a negative Cologuard result, the Vincentian Cancer Society and U.S. Multi-Society Task Force screening guidelines recommend a Cologuard re-screening interval of 3 years. ??References: Vincentian Cance r Society (ACS). Colorectal cancer prevention and early detection. [place], [place]: Vincentian Cancer Society; [updated 2015Jun 09]. https://www.cancer.org/cancer/colo h-oxzdyd-dbyyso/bvhifmzbt-frrpedrjs-sbcm ing/acs-recommendations.html. Accessed October 16, 2017; Johnnie MAJANO, Merced KING, Jasper MurrayK, Colorectal Cancer Screening: Recommendations for Physicians and Patients f rom the U.S. Multi-Society Task Force on Colorectal Cancer Screening, Am J Gastroenterology 2017; 112:7974-2149. Test Type: Composite algorithmic analysi s of [...] can be accessed at the following location: [email or web address]/results. ??Additional description of the Cologuard test process, warnings and precautions can be found at www.cologuardtest.com. Rx Only. [employer], [address] [place] [address], [address], [place], [address], , Clinical Laboratory Manager Council, Luciana Dodge, Ph.D., [facility], CLIA NO: [id number] Specimen Anatomical Collection Method Collection Time Receive d Time (Source) Location / / Volume Laterality 05/12/2018 5:00 AM 9 3:30 CDT PM CDT Adriane Patel APRN, LEONARD LAB BODY FLUIDS AND STOOL S ORDERABLES Performing Organization Address City/State/ZIP Code Phon e Number [facility], [address] [place] [address] [facility] [address] documented in this encounter Visit Diagnoses Diagnosis Type 2 diabetes mellitus with other spec ified complication, without long-term current use of insulin (HCC) - Primary documented in this encounter Care Teams Paymaster Of Purses Relationship Specialty Start Date End Date Adriane Patel APRN, RECRUITING OPERATIONS CONSULTANT PCP - General 09/22/17 07/06/19 100 [facility] [place] [facility] [place] [address] documented as of this encounter
--- OUTSIDE RECORDS SUMMARY | 2021-10-24 10:45 | XMS_ITS | Encounter Summary ---
:1945 Author Organization [facility] Address [address] [place] [address] Care Team Providers Name Role Phone Adriane Patel WASH DRILLER, TAKER OFF DRYING KILN Primary Care Provider [phone] Reason for Visit Reason Comments Med Refill Encounter Details Date Type Department Care Team Description 06/21/2018 Refill [place] Adriane Patel, Hypothyroidism, [address] WASH DRILLER, TAKER OFF DRYING KILN unspecified type [place], [place] [address] [facility] (Primary Dx) [phone] [place], [place] [address] Social History Tobacco Use [...] ry documented in this encounter Care Teams Communication Center Operator Relationship Specialty Start Date End Date Adriane Patel, WASH DRILLER, TAKER OFF DRYING KILN PCP - General 09/22/17 07/06/19 100 [facility] [address] documented as of this encounter
--- OUTSIDE RECORDS SUMMARY | 2021-10-24 10:45 | XMS_ITS | Encounter Summary ---
:1945 Author Organization [facility] Address [address] [place] [address] Care Team Providers Name Role Phone Adriane Patel Ronak UPPER MARKER, DIGITAL IMAGING TECHNICIAN Primary Care Provider [phone] Encounter Details Date Type Department Care Team Description 06/24/2018 Lab [place] Type 2 diabetes mellitus wit h [address] other specified complication , Chuckie Pierre MD [address] without long-term current us e [phone] of insulin (HCC ) Social History Tobacco [...] A1C 8.5 (H) 4.0 - 5.6 06/24/2018 [place] % A1C 5:31 PM CDT MEDICAL CENTER [...] Volume Laterality Blood (Blood, 06/24/2018 10:45 06/24/2018 5:00 Venous) AM CDT PM CDT Adriane Patel APRN, DIGITAL IMAGING TECHNICIAN LAB BLOOD ORDERABLES Performing Organization Address City/State/ZIP Code Phon e Number [facility] [address] [place] [address] documented in this encounter Visit Diagnoses Diagnosis Type 2 diabetes mellitus with other spec ified complication, without long-term current use of insulin (HCC) documented in this encounter Care Teams Jowl Trimmer Relationship Specialty Start Date End Date Adriane Patel APRN, DIGITAL IMAGING TECHNICIAN PCP - General 09/22/17 07/06/19 100 [place] [address] documented as of this encounter
--- OUTSIDE RECORDS SUMMARY | 2021-10-24 10:45 | XMS_ITS | Encounter Summary ---
:1945 Author Organization [facility] Address [address] [place] [address] Care Team Providers Name Role Phone Adriane Patel GENERAL PRODUCTION WORKER, SYSTEMS SUPPORT OFFICER Primary Care Provider [phone] Reason for Visit Reason Onset Date Comments Referral 06/21/2018 Encounter Details Date Type Department Care Team Description 06/21/2018 Telephone [place] Adriane Patel, Referral [address] GENERAL PRODUCTION WORKER, SYSTEMS SUPPORT OFFICER [place], [place] [address] [address] [facility] [phone] [place], [place] [address] Social History Tobacco Use [...] Notes Telephone Encounter - Phoebe Donohue - 06/22/2018 8:59 AM CDT Referral faxed. Telephone Encounter - Margareth Sanchez RN - 06/22/2018 8:40 AM CDT Please fax to [facility]. Telephone Encounter - Adriane Patel APRN, [...] area when she pushes on it. She saidit is located in the crease by her [...] CDT Please advise Telephone Encounter - Phoebe Donoheu - 06/21/2018 9:06 AM CDT Patient is having more issues and would like to proceed with CT as discussed in previous visit. She would like this done at [facility]. documented in this encounter Plan of Treatment Not on filedocumented as of this encounter Visit Diagnoses Not on filedocumented in this encounter Care Teams Dealer Compliance Representative Relationship Specialty Start Date End Date Adriane Patel APRN, SYSTEMS SUPPORT OFFICER PCP - General 09/22/17 07/06/[address] [facility] [place] [address] documented as of this encounter
--- OUTSIDE RECORDS SUMMARY | 2021-10-24 10:45 | XMS_ITS | Encounter Summary ---
:1945 Author Organization [facility] Address [address] [place] [address] Care Team Providers Name Role Phone Adriane Patel LECTURER IN MARKETING, ELECTRICAL ENGINEERING TEACHER Primary Care Provider [phone] Reason for Visit Reason Onset Date Comments Requesting results and referral 07/05/2018 Encounter Details Date Type Department Care Team Description 07/05/2018 Telephone [place] Adriane Patel, Requesting results and [address] LECTURER IN MARKETING, ELECTRICAL ENGINEERING TEACHER referral [place], [place] [address] [facility] [phone] [place], [place] [address] Social History Tobacco Use [...] Notes Telephone Encounter - Adriane Patel APRN, ELECTRICAL ENGINEERING TEACHER - 07/05/2018 2:14 PM CDT This referral has been completed. Telephone Encounter - Lana Knight LPN - 07/05/2018 1:44 PM CDT She would like a second opinion on the HbgA1c. She feels that she has been high for sometime. She wants to talk with the special. She would like to see [facility] endocrinology. Telephone Encounter - Adriane Patel APRN, [...] trying to get some results form Suresh Patel. Pt is also requesting areferral to alia Alfaro in endocrinology at [facility]. Pt gave a fax number for the referral of [phone]. Call Pt to advise. documented in this encounter Plan of Treatment Not on filedocumented as of this encounter Visit Diagnoses Not on filedocumented in this encounter Care Teams Cap And Stud Machine Operator Relationship Specialty Start Date End Date Adriane Patel APRN, LEONARD PCP - General 09/22/17 07/06/[address] [place] [address] [place] [address] documented as of this encounter
--- OUTSIDE RECORDS SUMMARY | 2021-10-24 10:45 | XMS_ITS | Encounter Summary ---
:1945 Author Organization [facility] Address [address] [place] [address] Care Team Providers Name Role Phone Adriane Patel INSIDE SALES ADMINISTRATOR, HUMAN CAPITAL CONSULTANT Primary Care Provider [phone] Reason for Visit Reason Comments Med Refill Encounter Details Date Type Department Care Team Description 06/22/2018 Refill [place] Adriane Patel, Anxiety (Primary Dx) [address] INSIDE SALES ADMINISTRATOR, HUMAN CAPITAL CONSULTANT [place], [place] [address] [facility] [phone] [place], [place] [address] Social History Tobacco Use [...] 06/24/2018 1:32 PM CDT Rx faxed to [facility] as requested. Telephone Encounter - Ana Cristina Prado MA - 06/24/2018 1:28 PM CDT Please fax to [facility]. Telephone Encounter - Adriane Patel APRN, LEONARD - 06/24/2018 1:27 PM CDT Please fax to [facility]. Thanks, Suresh Telephone Encounter - Margareth Sanchez RN - 06/24/2018 12:59 PM CDT Patient would like to use [facility] in Telephone Encounter - Luciana Albarado - 06/24/2018 12:06 PM CDT Pt stated there should be two refills coming through and she would prefer to have them filled at [facility]. Call Pt as necessary. Telephone Encounter - Adriane Patel APRN, LEONARD - 06/24/2018 9:39 AM CDT Please verify with the patient where she would like this faxed to, it appears that came from the [place] pharmacy as requested. Thanks Suresh Telephone Encounter [...] unspecified documented in this encounter Care Teams Display Associate Relationship Specialty Start Date End Date Adriane Patel APRN, HUMAN CAPITAL CONSULTANT PCP - General 09/22/17 07/06/19 [address] [place] [address] documented as of this encounter
--- OUTSIDE RECORDS SUMMARY | 2021-10-24 10:45 | XMS_ITS | Encounter Summary ---
:1945 Author Organization [facility] Address [address] [place] [address] Care Team Providers Name Role Phone Adriane Patel APRN, CNP Primary Care Provider [phone] Reason for Referral Consultation (Routine) - Closed Specialty Diagnoses / Procedures Referred By Contact Refer red To Contact Diagnoses Lower extremity edema Adriane Patel, [facility] LEONARD RESENDEZ SYSTEM - [address] [address] [place] [address] Phone: Fax: Referral ID Status Reason Start Date Expiration Date Visits Requ ested Visits Authorized [id number] Closed 07/18/2018 07/19/2019 1 1 Reason for Visit Reason Comments UTI Encounter Details Date Type Department Care Team Description 07/15/2018 Office Visit [place] Adriane Patel Lower extremity edema (Prima ry Dx); [address] , LEONARD RESENDEZ Dysuria; [place], [place] [address] [facility] Anemia, unspecified type; [address] [place] [address] Rosacea [phone] Social History Tobacco Use Types Packs/Day Years [...] No 12/23/2018 organizations such as pentecostalism groups, [employer], [email or web address] or athletic groups, or school groups? How [...] mouth 1 (one) time each daywith breakfast Rosacea - clindamycin (CLINDAGEL) 1 % [...] 267 (H) 5 - 125 07/16/2018 [facility] pg/mL 1:24 PM CDT CENTER LABORATORY [...] / Volume Laterality Blood (Blood, 07/15/2018 5:05 PM 07/17/19 19 Venous) CDT 12:30 PM CDT Adriane Patel APRN, ACCOUNT SOLUTIONS ANALYST LAB BLOOD ORDERABLES Performing Organization Address City/State/ZIP Code Phon e Number [facility] [address] [place] [address] Urine culture (clean catch) (07/15/2018 4:05 PM CDT) [facility] gist Method Time Signature Urine Culture <10,000 07/16/2018 [place] cfu/ml No 12:55 PM CDT [facility] further ID. LABORATORY Specimen Anatomical Collection Method Collection Time Receive d Time (Source) Location / / Volume Laterality Urine, Clean 07/15/2018 4:05 PM 9 Catch CDT 12:35 PM CDT Narrative [facility] - 06/18 12:55 PM CDT Patient does not have an Amoxicillin or PCN allergy Adriane Patel APRN, CNP LAB MICROBIOLOGY - GENERA L ORDERABLES Performing Organization Address City/State/ZIP Code Phon e Number [facility] [address] [place] [address] (ABNORMAL) Urinalysis with reflex microscopic (clean catch) (07/15/2018 4:00 PM CDT) [facility] Method Time Signature Type CLEAN CATCH 07/15/2018 [facility] 4:16 PM CDT [place] Color, Urine STRAW YELLOW 07/15/2018 [facility] 4:16 PM CDT [place] Clarity, HAZY (A) CLEAR 07/15/2018 [facility] Urine 4:16 PM CDT [place] Glucose, NEGATIVE NEGATIVE 07/15/2018 [facility] Urine mg/dL 4:16 PM CDT [place] Bilirubin, NEGATIVE NEGATIVE 07/15/2018 [facility] Urine 4:16 PM CDT [place] Ketones, NEGATIVE NEGATIVE 07/15/2018 [facility] Urine mg/dL 4:16 PM CDT [place] Specific 1.020 1.000 07/15/2018 [facility] [place], ->=1.030 4:16 PM CDT [place] Urine Blood, Urine TRACE (A) NEGATIVE 07/15/2018 [facility] 4:16 PM CDT [place] pH, Urine 5.5 5.0 - 7.0 07/15/2018 [facility] 4:16 PM CDT [place] Protein, NEGATIVE NEGATIVE-TRA 07/15/2018 [facility] Urine CE mg/dL 4:16 PM CDT [place] Urobilinogen, 0.2 0.2 - 1.0 07/15/2018 [facility] Urine E.U./dL 4:16 PM CDT [place] Nitrite, NEGATIVE NEGATIVE 07/15/2018 [facility] Urine 4:16 PM CDT [place] Leukocytes, MODERATE (A) NEGATIVE 07/15/2018 [facility] Urine 4:16 PM CDT [place] Specimen Anatomical Collection Method Collection Time Receive d Time (Source) Location / / Volume Laterality Urine (Urine, 07/15/2018 4:00 PM 07/16/19 19 4:00 Clean Catch) CDT PM CDT Adriane Patel APRN, CNP LAB URINE ORDERABLES Performing Organization Address City/State/ZIP Code Phon e Number [facility] [place] [address] [place] [address] documented in this encounter Visit Diagnoses Diagnosis Lower extremity edema - Primary Edema Dysuria Anemia, unspecified type Rosacea Dysuria Lower extremity edema Edema documented in this encounter Care Teams Software Database Architect Relationship Specialty Start Date End Date Adriane Patel APRN, ACCOUNT SOLUTIONS ANALYST PCP - General 09/22/17 07/06/19 100 [facility] [place] [address] documented as of this encounter
--- OUTSIDE RECORDS SUMMARY | 2021-10-24 10:45 | XMS_ITS | Encounter Summary ---
:1945 Author Organization [facility] Address [address] [place] [address] Care Team Providers Name Role Phone Adriane Patel MACHINE BUFFER, GUM SCORING MACHINE OPERATOR Primary Care Provider Reason for Visit Reason Onset Date Comments LAB RESULT QUESTIONS 05/03/2018 Encounter Details Date Type Department Care Team Description 05/03/2018 Telephone [place] Adriane Patel, LAB RESULT QUESTIONS [address] MACHINE BUFFER, GUM SCORING MACHINE OPERATOR [place], [place] [address] [address] [address] [phone] [place], [place] [address] Social History Tobacco Use [...] 140. Patient has been on Januvia since 04/22/18. Patient is wondering how she can improve [...] lab results from 04/23/18. Please call Pt inthe later afternoon, as she will be out earlier this afternoon. documented in this encounter Plan of Treatment Not on filedocumented as of this encounter Visit Diagnoses Not on filedocumented in this encounter Care Teams Business And Marketing Teacher Relationship Specialty Start Date End Date Adriane Patel, MACHINE BUFFER, GUM SCORING MACHINE OPERATOR PCP - General 09/22/17 07/06/19 100 [place] [address] documented as of this encounter
--- OUTSIDE RECORDS SUMMARY | 2021-10-24 10:45 | XMS_ITS | Encounter Summary ---
:1945 Author Organization [facility] Address [address] [place] [address] Care Team Providers Name Role Phone Adriane Patel Ronak SAT INSTRUCTOR, RN LVN Primary Care Provider [phone] Encounter Details Date Type Department Care Team Description 07/09/2018 Orders Only SE Endocrinology Bacilio Stewart, Type [address] [place] [address] specified complication, [place], [place] without long-t erm [address] current use of insulin [phone] ([facility]) (Primary Dx) (Work) Social History Tobacco Use [...] Primary documented in this encounter Care Teams Director Of Business Applications Relationship Specialty Start Date End Date Adriane Patel, SAT INSTRUCTOR, RN LVN PCP - General 09/22/17 07/06/19 100 [facility] [place] [address] documented as of this encounter
--- OUTSIDE RECORDS SUMMARY | 2021-10-24 10:45 | XMS_ITS | Encounter Summary ---
:1945 Author Organization [facility] Address [address] [place] [address] Care Team Providers Name Role Phone Adriane Patel ROTO MIXER OPERATOR, SUPERVISOR LAUNDRY Primary Care Provider [phone] Reason for Visit Reason Onset Date Comments UA 07/15/2018 UA RESULTS Encounter Details Date Type Department Care Team Description 07/15/2018 Telephone [place] Adriane Patel, UA (UA RESULTS) [address] ROTO MIXER OPERATOR, [place], [place] [address] [address] [facility] [address] [phone] [place], [place] [address] Social History Tobacco Use [...] on filedocumented in this encounter Care Teams Broadcast Meteorologist Relationship Specialty Start Date End Date Adriane Patel APRN, SUPERVISOR LAUNDRY PCP - General 09/22/17 07/06/[address] [place] [address] [place] [address] documented as of this encounter
--- OUTSIDE RECORDS SUMMARY | 2021-10-24 10:45 | XMS_ITS | Encounter Summary ---
:1945 Author Organization [facility] Address [address] [place] [address] Care Team Providers Name Role Phone Adriane Patel VEHICLE DYNAMICS ENGINEER, GLOVE TURNER AND FORMER Primary Care Provider [phone] Reason for Referral Consultation (Routine) - Closed Specialty Diagnoses / Procedures Referred By Contact Refer red To Contact Endocrinology Diagnoses Type 2 diabetes mellitus with other specified complication, without long-term current use of insulin (HCC) Bacilio Stewart MBBS [address] [address] Referral ID Status Reason Start Date Expiration Date Visits V isits Requested Authorized [id number] Closed Specialty 07/19/2018 07/20/2019 1 1 Services Required Scheduling Instructions Staff from this department will contact the patient to schedule an appointment. Reason for Visit Reason Onset Date Comments question 07/16/2018 Encounter Details Date Type Department Care Team Description 07/16/2018 Telephone Endocrinology Bacilio Stewart MBBS question [address] [facility] [address] [address] [place] [address] (Wo rk) Social History Tobacco Use Types [...] 12/23/2018 organizations such as mu-ism groups, unions, [email or web address] or athletic groups, or school groups? How [...] Primary documented in this encounter Care Teams Activities Attendant Relationship Specialty Start Date End Date Adriane Patel, VEHICLE DYNAMICS ENGINEER, GLOVE TURNER AND FORMER PCP - General 09/22/17 07/06/19 100 [place] [address] documented as of this encounter
--- OUTSIDE RECORDS SUMMARY | 2021-10-24 10:45 | XMS_ITS | Encounter Summary ---
:1945 Author Organization [facility] Address [address] [place] [address] Care Team Providers Name Role Phone Adriane Patel APRN, CNP Primary Care Provider [phone] Reason for Referral Consultation (Routine) - Closed Specialty Diagnoses / Procedures Referred By Contact Refer red To Contact Diagnoses Left groin mass Adriane Patel, [facility] [place] [address] [address] [place] [id number] Phone: Fax: Referral ID Status Reason Start Date Expiration Date Visits Requ ested Visits Authorized [id number] Closed 06/22/2018 06/23/2019 1 1 Encounter Details Date Type Department Care Team Description 06/22/2018 Orders Only [place] Adriane Patel, Left groin mass [address] LEONARD RESENDEZ (Primary Dx) [place], [place] [address] [address] [place] [address] Social History Tobacco Use Types Packs/Day Years [...] 12/23/2018 organizations such as baptist groups, unions, [employer] or athletic groups, or school groups? How [...] Primary documented in this encounter Care Teams Emery Wheel Worker Relationship Specialty Start Date End Date Adriane Patel APRN, SAND WORKER PCP - General 09/22/17 07/06/19 100 [place] [address] documented as of this encounter
--- OUTSIDE RECORDS SUMMARY | 2021-10-24 10:45 | XMS_ITS | Encounter Summary ---
:1945 Author Organization [facility] Address [address] [place] [address] Care Team Providers Name Role Phone Adriane Patel CORRECTIONAL THERAPY DIRECTOR, SPORTING GOODS SALES ASSOCIATE Primary Care Provider [phone] Reason for Visit Reason Onset Date Comments Results 06/30/2018 Encounter Details Date Type Department Care Team Description 06/30/2018 Telephone [place] Adriane Patel, Results [address] CORRECTIONAL THERAPY DIRECTOR, SPORTING GOODS SALES ASSOCIATE [place], [place] [address] [facility] [phone] [place], [place] [address] Social History Tobacco Use [...] Notes Telephone Encounter - Adriane Patel APRN, SPORTING GOODS SALES ASSOCIATE - 07/01/2018 4:40 PM CDT Letter sent. Telephone Encounter - Adriane Patel APRN, CNP - 07/01/2018 3:48 PM CDT Called the patient and left a message. We will try calling the patient tomorrow. Telephone Encounter - Adriane Patel APRN, CNP - 07/01/2018 1:51 PM CDT Called the patient and left a message. Telephone Encounter - Di Nathalia - 07/01/2018 10:04 AM CDT The patient [...] AM CDT Patient had ultrasound yesterday at [place] and is requesting results. She would also like lab results.Please call her at [phone]. documented in this encounter Plan of Treatment Not on filedocumented as of this encounter Visit Diagnoses Not on filedocumented in this encounter Care Teams Cake Decorator Relationship Specialty Start Date End Date Adriane Patel, CORRECTIONAL THERAPY DIRECTOR, SPORTING GOODS SALES ASSOCIATE PCP - General 09/22/17 07/06/19 100 [facility] [place] [address] documented as of this encounter
--- OUTSIDE RECORDS SUMMARY | 2021-10-24 10:45 | XMS_ITS | Encounter Summary ---
:1945 Author Organization [facility] Address [address] [place] [address] Care Team Providers Name Role Phone Adriane Patel Ronak SCREEN EXAMINER, NEW AUTOS DELIVERY DRIVER Primary Care Provider Encounter Details Date Type Department Care Team Description 07/07/2018 Lab SE Lab Type 2 diabetes mellitus wit h [address] [facility] other specified complication , [place] [address] without long-term current us e [phone] of insulin (HCC ) Social History Tobacco [...] Routine 07/07/2018 4:35 PM Type 2 diabetes Result s for this FILTRATION RATE CDT mellitus with other proce dure are in specified the results complication, section. without long-term current use of insulin (HCC) HEMOGLOBIN A1C Routine 07/07/2018 4:35 PM Type 2 diabetes Resu lts for this [...] filtration rate (GFR) (07/07/2018 4:35 PM CDT) athologist Signature GFR 37 (A) 07/07/2018 [facility] 5:59 PM CDT [facility] 45 (A) 07/07/2018 [facility] Yemeni GFR 5:59 PM T [facility] Comment: GFR calculated from serum creatinine v alue Chronic Kidney Disease less than 60 mL/m in/1.73 m2 Kidney Failure less than 15 mL/min/1.73 m2 Note: effective 07/01/06 IDMS-Traceable MDRD Study Equation used. Specimen Anatomical Collection Method Collection Time Receive d Time (Source) Location / / Volume Laterality 07/07/2018 4:35 PM 9 4:35 CDT PM CDT Bacilio DELA CRUZ LAB BLOOD ORDERABLES Performing Organization Address City/State/ZIP Code Phon e Number [facility] [address] [place] [address] (ABNORMAL) Hemoglobin A1c (07/07/2018 4:35 PM CDT) Analysis Performed At Patho logist Time Signature Hemoglobin A1C 8.7 (H) 4.0 - 5.6 07/07/2018 [place] % A1C 5:44 PM CDT MED[facility]ENTER [...] / Volume Laterality Blood (Blood, 07/07/2018 4:35 PM 07/08/19 19 5:26 Venous) CDT PM CDT Adriane Patel SCREEN EXAMINER, NEW AUTOS DELIVERY DRIVER LAB BLOOD ORDERABLES Performing Organization Address [facility] Code Phon e Number [facility] [address] [place] [address] (ABNORMAL) Basic metabolic panel (07/07/2018 4:35 PM CDT) Analysis Performed At Patho logist Time Signature Sodium 141 135 - 145 07/07/2018 [facility] mEq/L 5:59 PM [facility] Potassium 4.2 3.5 - 5.1 07/07/2018 [facility] mEq/L 5:59 PM [facility] Chloride 108 (H) 98 - 107 07/07/2018 [facility] mEq/L 5:59 PM [facility] CO2 26 22 - 29 07/07/2018 [facility] mmol/L 5:59 PM [facility] Creatinine 1.4 (H) 0.4 - 1.2 07/07/2018 [facility] mg/dL 5:59 PM [facility] BUN 22 5 - 25 07/07/2018 [facility] mg/dL 5:59 PM [facility] Glucose 181 (H) 70 - 100 07/07/2018 [facility] mg/dL 5:59 PM [facility] Calcium, 9.7 8.4 - 10.2 07/07/2018 [facility] Total,S mg/dL 5:59 PM [facility] Fasting? No 07/07/2018 [facility] 4:35 PM [facility] Specimen Anatomical Collection Method Collection Time Receive d Time (Source) Location / / Volume Laterality Blood 07/07/2018 4:35 PM 9 5:26 CDT PM CDT Bacilio DELA CRUZ LAB BLOOD ORDERABLES Performing Organization Address [facility] Phon e Number [facility] [address] [place] [address] documented in this encounter Visit Diagnoses Diagnosis Type 2 diabetes mellitus with other spec ified complication, without long-term current use of insulin (HCC) documented in this encounter Care Teams Supervisor Stripping Relationship Specialty Start Date End Date Adriane Patel APRN, NEW AUTOS DELIVERY DRIVER PCP - General 09/22/17 07/06/19 100 [facility] [place] [address] documented as of this encounter
--- OUTSIDE RECORDS SUMMARY | 2021-10-24 10:45 | XMS_ITS | Encounter Summary ---
:1945 Author Organization [facility] Address [address] [place] [address] Care Team Providers Name Role Phone Adriane Patel MANAGER EDITORIAL, MOTTLE LAY UP OPERATOR Primary Care Provider Reason for Visit Reason Comments Diabetes Consultation (Routine) - Closed Specialty Diagnoses / Procedures Referred By Contact Refer red To Contact Endocrinology Diagnoses Type 2 diabetes mellitus with hyperglycemia, without long-term current use of insulin (HCC) Adriane Patel, MAL, MOTTLE LAY UP OPERATOR [address] [place] [address] Referral ID Status Reason Start Date Expiration Date Visits V isits Requested Authorized [id number] Closed Specialty 07/05/2018 07/06/2019 1 1 Services Required Encounter Details Date Type Department Care Team Description 07/07/2018 Consult SE Endocrinology Bacilio Stewart, Type 2 diabetes mellitus [address] [place] [address] complication, without [phone] [place] [id number] insulin (HCC) (Primary [phone] Dx) (Work) Social History Tobacco Use Types [...] - 07/07/2018 3:30 PM CDT Consultation Patient: Marcila Adams 73 y.o. female 1945 Date of [...] Last eye exam showed no retinopathy in [place], per her account. Denies any numbness or [...] file Gets together: Not on file Attends yazdanism service: Not on file Active member of [...] up in a couple of weeks in [place]. - No skin changes or diabetic foot ulcers. - HTN. Reasonable control on therapy. - No neuropathy, normal monofilament exam. Follow up in about 6 weeks. Reviewed with the patient and her husbandin detail, they verbalized understanding and agreed with the plan. Bacilio Stewart MD Staff Cardiovascular Surgical Tech Adriane Patel APRN, LEONARD - 07/07/2018 3:30 PM CDT Reviewed. documented in this encounter Plan of Treatment Not on filedocumented as of this encounter Results (ABNORMAL) Basic metabolic panel (07/07/2018 4:35 PM CDT) [facility] Signature Sodium 141 135 - 145 07/07/2018 [facility] mEq/L 5:[address] [facility] Potassium 4.2 3.5 - 5.1 07/07/2018 [facility] mEq/L 5:[address] [facility] Chloride 108 (H) 98 - 107 07/07/2018 [facility] mEq/L 5:59 PM [facility] CO2 26 22 - 29 07/07/2018 [facility] mmol/L 5:[address] [facility] Creatinine 1.4 (H) 0.4 - 1.2 07/07/2018 [facility] mg/dL 5:[address] [facility] BUN 22 5 - 25 07/07/2018 [facility] mg/dL 5:[address] [facility] Glucose 181 (H) 70 - 100 07/07/2018 [facility] mg/dL 5:[address] [facility] Calcium, 9.7 8.4 - 10.2 07/07/2018 [facility] Total,S mg/dL 5:[address] [facility] Fasting? No 07/07/2018 [facility] 4:[address] [facility] Specimen Anatomical Collection Method Collection Time Receive d Time (Source) Location / / Volume Laterality Blood 07/07/2018 4:35 PM 9 5:26 CDT PM CDT Bacilio DELA CRUZ LAB BLOOD ORDERABLES Performing Organization Address City/State/ZIP Code Phon e Number [facility] [address] [place] [address] documented in this encounter Visit Diagnoses Diagnosis Type 2 diabetes mellitus with other spec ified complication, without long-term current use of insulin (HCC) - Primary documented in this encounter Care Teams Masonry Installer Relationship Specialty Start Date End Date Adriane Patel, MANAGER EDITORIAL, MOTTLE LAY UP OPERATOR PCP - General 09/22/17 07/06/19 100 [facility] [place] [address] documented as of this encounter
--- OUTSIDE RECORDS SUMMARY | 2021-10-24 10:45 | XMS_ITS | Encounter Summary ---
:1945 Author Organization [facility] Address [address] [place] [address] Care Team Providers Name Role Phone Adriane Patel Ronak ASSOCIATE PROFESSOR OF ECONOMICS, BELLMAN Primary Care Provider [phone] Encounter Details Date Type Department Care Team Description 05/24/2018 [facility] Type 2 diabetes mellitus wit h other specified complication, without long-term current use of insulin (HCC); [address] Dys[place], [place] [address] Social History Tobacco Use [...] A1C 8.5 (H) 4.0 - 5.6 05/25/2018 [place] % A1C 1:14 PM CDT [facility] Comment: Reference Range 4.0-5.6% is [...] CDT 12:36 PM CDT Adriane Patel APRN, BELLMAN LAB BLOOD ORDERABLES Performing Organization Address City/State/ZIP Code Phon e Number [facility] [address] [place] [id number] Urine culture (05/24/2018 11:33 AM CDT) Patholo gist Method Time Signature Urine Culture No Growth 05/25/2018 [place] 1:20 PM T [facility] Specimen Anatomical Collection Method Collection Time Receive d Time (Source) Location / / Volume Laterality Urine, Clean 05/24/2018 11:33 05/25/2018 1:09 Catch AM CDT PM CDT Narrative [facility] - 040 10/2018 1:20 PM CDT Patient does not have an Amoxicillin or PCN allergy Sanam Darnell APRN, BELLMAN LAB MICROBIOLOGY - GENERAL O RDERABLES Performing Organization Address City/[facility]/ZIP Code Phon e Number [facility] [address] [place] [id number] documented in this encounter Visit Diagnoses Diagnosis Type 2 diabetes mellitus with other spec ified complication, without long-term current use of insulin (HCC) [place]ys[place] documented in this encounter Care Teams B2B Appointment Setter Relationship Specialty Start Date End Date Adriane Patel APRN, BELLMAN PCP - General 09/22/17 07/06/19 100 [facility] [place] [address] documented as of this encounter
--- OUTSIDE RECORDS SUMMARY | 2021-10-24 10:45 | XMS_ITS | Encounter Summary ---
:1945 Author Organization [facility] Address [address] [place] [address] Care Team Providers Name Role Phone Adriane Patel Ronak DECORATOR LIGHTING FIXTURES, TOPPIECE CUTTER Primary Care Provider [phone] Encounter Details Date Type Department Care Team Description 04/27/2018 Lab [place] Dysuria [address] [place], [place] [address] Social History Tobacco Use [...] Associated Comments Diagnosis URINALYSIS-MICROSCOPI Routine 04/27/2018 3:22 PM Dysuria Results for this C EXAM (REFLEXED) CDT procedure are in the results section. URINALYSIS WITH Routine 04/27/2018 3:22 PM Dys[place] Result s for this REFLEX MICROSCOPIC CDT procedure are in the results section. documented in this encounter Results (ABNORMAL) Urinalysis-Microscopic Exam (04/27/2018 3:22 PM CDT) [facility] Method Time Signature Casts, urine NONE SEEN 0-2 Hyaline 04/27/2018 [facility] /lpf 3:40 PM CDT [place] Significant NONE SEEN None Seen 04/27/2018 [facility] casts, urine /lpf 3:40 PM CDT [place] RBC, Urine 4-10 (A) 0 - 3 /hpf 04/27/2018 [facility] 3:40 PM CDT [place] WBC, Urine 4-10 /hpf 04/27/2018 [facility] 3:40 PM CDT [place] Comment: Male Ref Range ? 0-3/hpf Female Ref Range ?? 0-10/hpf Squamous Epithelial, FEW Few /lpf 04/27/2018 3:40 PM [facility] [place] Urine CDT Trans Epithelial, NONE SEEN 0 - 3 /hpf 04/27/2018 3:40 PM [facility] [place] Urine CDT Renal Tubular Cells, NONE SEEN 0 - 1 /hpf 04/27/2018 3:40 PM [facility] [place] Urine CDT Bacteria, Urine 1+ (A) None Seen /hpf 04/27/2018 3:40 PM [facility] CDT Specimen Anatomical Collection Method Collection Time Receive d Time (Source) Location / / Volume Laterality 04/27/2018 3:22 PM 9 3:22 CDT PM CDT Sanam Darnell APRN, TOPPIECE CUTTER LAB URINE ORDERABLES Performing Organization Address City/State/ZIP Code Phon e Number [facility] [place] [address] [place] [address] (ABNORMAL) Urinalysis with reflex microscopic (clean catch) (04/27/2018 3:22 PM CDT) [facility] Method Time Signature Type CLEAN CATCH 04/27/2018 [facility] 3:39 PM CDT [place] Color, Urine STRAW YELLOW 04/27/2018 [facility] 3:39 PM CDT [place] Clarity, CLEAR CLEAR 04/27/2018 [facility] Urine 3:39 PM CDT [place] Glucose, NEGATIVE NEGATIVE 04/27/2018 [facility] Urine mg/dL 3:39 PM CDT [place] Bilirubin, NEGATIVE NEGATIVE 04/27/2018 [facility] Urine 3:39 PM CDT [place] Ketones, NEGATIVE NEGATIVE 04/27/2018 [facility] Urine mg/dL 3:39 PM CDT [place] Specific 1.025 1.000 04/27/2018 [facility] [place], ->=1.030 3:39 PM CDT [place] Urine Blood, [...] / Volume Laterality Urine (Urine, 04/27/2018 3:22 PM 04/28/19 19 3:22 Clean Catch) CDT PM CDT Sanam Darnell APRN, LEONARD LAB URINE ORDERABLES Performing Organization Address City/State/ZIP Code Phon e Number [facility] [address] [place] [address] documented in this encounter Visit Diagnoses Diagnosis Dysuria documented in this encounter Care Teams Drilling Field Operator Relationship Specialty Start Date End Date Adriane Patel APRN, TOPPIECE CUTTER PCP - General 09/22/17 07/06/19 100 [facility] [place] [address] documented as of this encounter
--- OUTSIDE RECORDS SUMMARY | 2021-10-24 10:45 | XMS_ITS | Encounter Summary ---
:1945 Author Organization [employer] Address [address] [place] [address] Care Team Providers Name Role Phone Adriane Patel Ronak ELECTRICITY TRADER, FOOD PACKER Primary Care Provider [phone] Reason for Visit Reason Comments UTI Encounter Details Date Type Department Care Team Description 04/27/2018 Office Visit Sanam Reich, Dysuria (Primary Dx); [address] ELECTRICITY TRADER, FOOD PACKER Type 2 diabetes mellitus wit h other specified complication, without long-term current use of insulin (HCC) [place], [place] [address] Social History Tobacco Use [...] in this encounter Progress Notes Sanam Darnell, CLOCK AND WATCH HANDS PAINTER - 04/27/2018 3:00 PM CDT Estab Patient [...] MG capsule; Take 1 capsule (100 mg total)by mouth 2 (two) times a day for [...] patient on Macrobid twice daily for 5 daysand await urine culture results. Advised to increase her water intake. Discussed the importance of voiding after intercourse. Follow-up in clinic if no improvement. Has verbalized understanding of planand is in agreement. documented in this encounter Plan of Treatment Not on filedocumented as of this encounter Results Urine culture (05/24/2018 11:33 AM CDT) [facility] gist Method Time Signature Urine Culture No Growth 05/25/2018 [place] 1:20 PM CDT [facility] Specimen Anatomical Collection Method Collection Time Receive d Time (Source) Location / / Volume Laterality Urine, Clean 05/24/2018 11:33 05/25/2018 1:09 Catch AM CDT PM CDT Narrative [facility] - 10/2018 1:20 PM CDT Patient does not have an Amoxicillin or PCN allergy Sanam Darnell ELECTRICITY TRADER, FOOD PACKER LAB MICROBIOLOGY - GENERAL O RDERABLES Performing Organization Address City/State/ZIP Code Phon e Number [facility] [address] [place] [address] (ABNORMAL) Urinalysis with reflex microscopic (clean catch) (04/27/2018 3:22 PM CDT) [facility] Method Time Signature Type CLEAN CATCH 04/27/2018 [facility] 3:39 PM CDT [place] Color, Urine STRAW YELLOW 04/27/2018 [facility] 3:39 PM CDT [place] Clarity, CLEAR CLEAR 04/27/2018 [facility] Urine 3:39 PM CDT [place] Glucose, NEGATIVE NEGATIVE 04/27/2018 [facility] Urine mg/dL 3:39 PM CDT [place] Bilirubin, NEGATIVE NEGATIVE 04/27/2018 [facility] Urine 3:39 PM CDT [place] Ketones, NEGATIVE NEGATIVE 04/27/2018 [facility] Urine mg/dL 3:39 PM CDT [place] Specific 1.025 1.000 04/27/2018 [facility] [place], ->=1.030 3:39 PM CDT [place] Urine Blood, Urine NEGATIVE NEGATIVE 04/27/2018 [facility] 3:39 PM CDT [place] pH, Urine 5.0 5.0 - 7.0 04/27/2018 [facility] 3:39 PM CDT [place] Protein, NEGATIVE NEGATIVE-TRA 04/27/2018 [facility] Urine CE mg/dL 3:39 PM CDT [place] Urobilinogen, 0.2 0.2 - 1.0 04/27/2018 [facility] Urine E.U./dL 3:39 PM CDT [place] Nitrite, NEGATIVE NEGATIVE 04/27/2018 [facility] Urine 3:39 PM CDT [place] Leukocytes, MODERATE (A) NEGATIVE 04/27/2018 [facility] Urine 3:39 PM CDT [place] Specimen Anatomical Collection Method Collection Time Receive d Time (Source) Location / / Volume Laterality Urine (Urine, 04/27/2018 3:22 PM 04/28/19 19 3:22 Clean Catch) CDT PM CDT Sanam Darnell APRN, FOOD PACKER LAB URINE ORDERABLES Performing Organization Address City/State/ZIP Code Phon e Number [facility] [place] [address] [place] [address] documented in this encounter Visit Diagnoses Diagnosis Dysuria - Primary Type 2 diabetes mellitus with other spec ified complication, without long-term current use of insulin (HCC) Type 2 diabetes mellitus with other spec ified complication, without long-term current use of insulin (HCC) Dysuria documented in this encounter Care Teams Research Assistant Member Relationship Specialty Start Date End Date Adriane Patel APRN, FOOD PACKER PCP - General 09/22/17 07/06/19 [address] [facility] [place] [address] documented as of this encounter
--- OUTSIDE RECORDS SUMMARY | 2021-10-24 10:45 | XMS_ITS | Encounter Summary ---
:1945 Author Organization [facility] Address [address] [place] [address] Care Team Providers Name Role Phone Adriane Patel ACID TANK CLEANER, GREIGE GOODS INSPECTOR Primary Care Provider [phone] Reason for Visit Reason Onset Date Comments UTI 04/27/2018 Encounter Details Date Type Department Care Team Description 04/27/2018 Telephone [place] Adriane Patel, UTI [address] ACID TANK CLEANER, GREIGE GOODS INSPECTOR [place], [place] [address] [address] [facility] [address] [phone] [place], [place] [address] Social History Tobacco Use [...] on filedocumented in this encounter Care Teams Senior Controls Analyst Relationship Specialty Start Date End Date Adriane Patel APRN, GREIGE GOODS INSPECTOR PCP - General 09/22/17 07/06/19 [address] [facility] [place] [address] documented as of this encounter
--- OUTSIDE RECORDS SUMMARY | 2021-10-24 10:45 | XMS_ITS | Encounter Summary ---
:1945 Author Organization [facility] Address [address] [place] [address] Care Team Providers Name Role Phone Adriane Patel FRONT OFFICE DIRECTOR, TOBACCO BLENDER Primary Care Provider [phone] Reason for Visit Reason Comments Med Refill Encounter Details Date Type Department Care Team Description 06/30/2018 Refill [place] Adriane Patel, Type 2 diabetes [address] FRONT OFFICE DIRECTOR, TOBACCO BLENDER mellitus with other [place], [place] [address] specified complication, [place], [place] [address] without long-term current use [...] Primary documented in this encounter Care Teams Survey Data Technician Relationship Specialty Start Date End Date Adriane Patel APRN, TOBACCO BLENDER PCP - General 09/22/17 07/06/19 100 [facility] [place] [address] documented as of this encounter
--- OUTSIDE RECORDS SUMMARY | 2021-10-24 10:45 | XMS_ITS | Encounter Summary ---
:1945 Author Organization [facility] Address [address] [place] [address] Care Team Providers Name Role Phone Adriane Patel PMP, MASTER OF CEREMONIES Primary Care Provider [phone] Encounter Details Date Type Department Care Team Description 05/26/2018 Orders Only [place] Adriane Patel, Type [address] PMP, LEONARD mellitus with other [place] [address] specified [address] [place] [address] complication, without [phone] long-ter m current use of insulin (HCC [...] A1C 8.5 (H) 4.0 - 5.6 06/24/2018 [place] % A1C 5:31 PM CDT [facility] Comment: Reference Range 4.0-5.6% [...] AM CDT PM CDT Adriane Patel APRN, CNP LAB BLOOD ORDERABLES Performing Organization Address City/State/ZIP Code Phon e Number [facility] [address] [place] [address] documented in this encounter Visit Diagnoses Diagnosis Type 2 diabetes mellitus with other spec ified complication, without long-term current use of insulin (HCC) - Primary documented in this encounter Care Teams Life Educator Relationship Specialty Start Date End Date Adriane Patel APRN, MASTER OF CEREMONIES PCP - General 09/22/17 07/06/19 100 [place] [address] documented as of this encounter
--- OUTSIDE RECORDS SUMMARY | 2021-10-24 10:46 | XMS_ITS | Encounter Summary ---
:1945 Author Organization [facility] Address [address] [place] [address] Care Team Providers Name Role Phone Adriane Patel Ronak TELECOM SALES CONSULTANT, TILE INSPECTOR Primary Care Provider [phone] Encounter Details Date Type Department Care Team Description 04/01/2018 Lab [place] Weak urinary stream [address] [place], [place] [address] Social History Tobacco Use [...] 12/23/2018 organizations such as adventism groups, unions, fraternal or athletic groups, or [...] tream Results for this EXAM (REFLEXED) AM GLASS BULB MACHINE ADJUSTER procedure ar e in the results section. URINALYSIS WITH REFLEX Routine 04/01/2018 11:39 Weak urinary s tream Results for this MICROSCOPIC AM GLASS BULB MACHINE ADJUSTER procedure are i n the results section. URINE CULTURE Routine 04/01/2018 11:39 Weak urinary stream Res ults for this AM GLASS BULB MACHINE ADJUSTER procedure are i n the results section. GLOMERULAR FILTRATION Routine 04/01/2018 11:32 Re sults for this RATE AM GLASS BULB MACHINE ADJUSTER procedure are i n the results section. CBC BRANCH OFFICE Routine 04/01/2018 11:32 Result s for this W/DIFF AM GLASS BULB MACHINE ADJUSTER procedure are i n the results section. CREATININE, SERUM Routine 04/01/2018 11:32 Result s for this AM GLASS BULB MACHINE ADJUSTER procedure are i n the results section. SEDIMENTATION RATE, Routine 04/01/2018 11:32 Resu lts for this AUTOMATED AM GLASS BULB MACHINE ADJUSTER procedure are i n the results section. C-REACTIVE PROTEIN Routine 04/01/2018 11:32 Resul ts for this AM GLASS BULB MACHINE ADJUSTER procedure are i n the results section. ALT Routine 04/01/2018 11:32 Results for this AM GLASS BULB MACHINE ADJUSTER procedure are i n the results section. AST Routine 04/01/2018 11:32 Results for this AM GLASS BULB MACHINE ADJUSTER procedure are i n the results section. ALBUMIN Routine 04/01/2018 11:32 Results for this AM GLASS BULB MACHINE ADJUSTER procedure are i n the results section. documented in this encounter Results (ABNORMAL) Urine culture (clean catch) (04/01/2018 11:39 AM GLASS BULB MACHINE ADJUSTER) [facility] Method Time Signature Urine Culture Escherichia coli 04/03/2018 [place] >100,000 cfu/ml 8:14 AM GLASS BULB MACHINE ADJUSTER [facility] [place] [facility] Specimen Anatomical Collection Method Collection Time Receive d Time (Source) Location / / Volume Laterality Urine, Clean 04/01/2018 11:39 04/02/2018 Catch AM GLASS BULB MACHINE ADJUSTER 12:50 PM GLASS BULB MACHINE ADJUSTER Narrative [facility] - 03/19 8:14 AM GLASS BULB MACHINE ADJUSTER Patient does not have an Amoxicillin or [facility] [address] [place] [address] (ABNORMAL) Urinalysis-Microscopic Exam (04/01/2018 11:39 AM GLASS BULB MACHINE ADJUSTER) [facility] Method Time Signature Casts, urine NONE SEEN 0-2 Hyaline 04/01/2018 [facility] /lpf 12:56 PM GLASS BULB MACHINE ADJUSTER [place] Significant NONE SEEN None Seen 04/01/2018 [facility] casts, urine /lpf 12:56 PM GLASS BULB MACHINE ADJUSTER [place] RBC, Urine 0-3 0 - 3 /hpf 04/01/2018 [facility] 12:56 PM GLASS BULB MACHINE ADJUSTER [place] WBC, Urine 11-20 (A) /hpf 04/01/2018 [facility] 12:56 PM GLASS BULB MACHINE ADJUSTER [place] Comment: Male Ref Range ? 0-3/hpf Female Ref Range ?? 0-10/hpf Squamous Epithelial, 1+ (A) Few /lpf 04/01/2018 12:56 PM [facility] [place] Urine GLASS BULB MACHINE ADJUSTER Trans Epithelial, NONE SEEN 0 - 3 /hpf 04/01/2018 12:56 PM O [facility] [place] Urine GLASS BULB MACHINE ADJUSTER Renal Tubular Cells, NONE SEEN 0 - 1 /hpf 04/01/2018 12:56 P M [facility] [place] Urine GLASS BULB MACHINE ADJUSTER Bacteria, Urine 1+ (A) None Seen /hpf 04/01/2018 12:56 PM [facility] [place] [place] GLASS BULB MACHINE ADJUSTER Specimen Anatomical Collection Method Collection Time Receive d Time (Source) Location / / Volume Laterality 04/01/2018 11:39 04/01/2018 AM GLASS BULB MACHINE ADJUSTER 11:40 AM GLASS BULB MACHINE ADJUSTER Adriane Patel APRN, CNP LAB URINE ORDERABLES Performing Organization Address City/[facility] Phon e Number [facility] [place] [address] [place] [address] (ABNORMAL) Urinalysis with reflex microscopic (clean catch) (04/01/2018 11:39 AM GLASS BULB MACHINE ADJUSTER) [facility] Method Time Signature Type COLLECTION HAT 04/01/2018 [facility] 11:52 AM [place] GLASS BULB MACHINE ADJUSTER Color, Urine STRAW YELLOW 04/01/2018 [facility] 11:52 AM [place] GLASS BULB MACHINE ADJUSTER Clarity, HAZY (A) CLEAR 04/01/2018 [facility] Urine 11:52 AM [place] GLASS BULB MACHINE ADJUSTER Glucose, 100 (A) NEGATIVE 04/01/2018 [facility] Urine mg/dL 11:52 AM [place] GLASS BULB MACHINE ADJUSTER Bilirubin, NEGATIVE NEGATIVE 04/01/2018 [facility] Urine 11:52 AM [place] GLASS BULB MACHINE ADJUSTER Ketones, NEGATIVE NEGATIVE 04/01/2018 [facility] Urine mg/dL 11:52 AM [place] GLASS BULB MACHINE ADJUSTER Specific 1.020 1.000 04/01/2018 [facility] [place], ->=1.030 11:52 AM [place] Urine GLASS BULB MACHINE ADJUSTER Blood, Urine NEGATIVE NEGATIVE 04/01/2018 [facility] 11:52 AM [place] GLASS BULB MACHINE ADJUSTER pH, Urine 5.0 5.0 - 7.0 04/01/2018 [facility] 11:52 AM [place] GLASS BULB MACHINE ADJUSTER Protein, NEGATIVE NEGATIVE-TRA 04/01/2018 [facility] Urine CE mg/dL 11:52 AM [place] GLASS BULB MACHINE ADJUSTER Urobilinogen, 0.2 0.2 - 1.0 04/01/2018 [facility] Urine E.U./dL 11:52 AM [place] GLASS BULB MACHINE ADJUSTER Nitrite, NEGATIVE NEGATIVE 04/01/2018 [facility] Urine 11:52 AM [place] GLASS BULB MACHINE ADJUSTER Leukocytes, MODERATE (A) NEGATIVE 04/01/2018 [facility] Urine 11:52 AM [place] GLASS BULB MACHINE ADJUSTER Specimen Anatomical Collection Method Collection Time Receive d Time (Source) Location / / Volume Laterality Urine (Urine, 04/01/2018 11:39 04/01/2018 Clean Catch) AM GLASS BULB MACHINE ADJUSTER 11:40 AM GLASS BULB MACHINE ADJUSTER Adriane Patel APRN, TILE INSPECTOR LAB URINE ORDERABLES Performing Organization Address City/State/ZIP Code Phon e Number [facility] [place] [address] [place] [address] (ABNORMAL) Glomerular filtration rate (GFR) (04/01/2018 11:32 AM GLASS BULB MACHINE ADJUSTER) P athologist Signature GFR 44 (A) 04/02/2018 [facility] 2:25 PM GLASS BULB MACHINE ADJUSTER [facility] 53 (A) 04/02/2018 [facility] [place] GFR 2:25 PM GLASS BULB MACHINE ADJUSTER [facility] Comment: GFR calculated from serum creatinine v alue Chronic Kidney Disease less than 60 mL/m in/1.73 m2 Kidney Failure less than 15 mL/min/1.73 m2 Note: effective 07/01/06 IDMS-Traceable MDRD Study Equation used. Specimen Anatomical Collection Method Collection Time Receive d Time (Source) Location / / Volume Laterality 04/01/2018 11:32 04/01/2018 AM GLASS BULB MACHINE ADJUSTER 11:32 AM GLASS BULB MACHINE ADJUSTER Narrative [facility] - 03/19 2:25 PM GLASS BULB MACHINE ADJUSTER Called to CALL CANCELLED - RESULTS FAXED , , 14:29 04/01/[address] Carl Prado [facility] Rheumatology Fax Phone Outside Referring Lab Provider LAB BLOOD ORDERABLES Performing Organization Address City/State/ZIP Code Phon e Number [facility] [address] [place] [address] (ABNORMAL) CBC Branch Off w/Diff (04/01/2018 11:32 AM GLASS BULB MACHINE ADJUSTER) [facility] Method Time Signature WBC 6.6 3.5 - 10.5 04/01/2018 [facility] K/uL 11:51 AM GLASS BULB MACHINE ADJUSTER [place] RBC 3.82 (L) 3.90 - 04/01/2018 [facility] 5.00 M/uL 11:51 AM GLASS BULB MACHINE ADJUSTER [place] Hemoglobin 11.3 (L) 12.0 - 04/01/2018 [facility] 15.5 g/dL 11:51 AM GLASS BULB MACHINE ADJUSTER [place] Hematocrit 34.5 (L) 35.0 - 04/01/2018 [facility] 44.0 % 11:51 AM GLASS BULB MACHINE ADJUSTER [place] Platelets 208 150 - 450 04/01/2018 [facility] K/uL 11:51 AM GLASS BULB MACHINE ADJUSTER [place] MCV 90.3 81.6 - 04/01/2018 [facility] 98.3 fL 11:51 AM GLASS BULB MACHINE ADJUSTER [place] MCH 29.6 26.0 - 04/01/2018 [facility] 32.0 pg 11:51 AM GLASS BULB MACHINE ADJUSTER [place] MCHC 32.8 32.0 - 04/01/2018 [facility] 36.0 g/dL 11:51 AM GLASS BULB MACHINE ADJUSTER [place] RDW 13.0 11.9 - 04/01/2018 [facility] 15.5 % 11:51 AM GLASS BULB MACHINE ADJUSTER [place] Lymphocytes % 17.3 (L) 18.0 - 04/01/2018 [facility] 45.0 % 11:51 AM GLASS BULB MACHINE ADJUSTER [place] Mid-size Cells 12.7 (H) 3.3 - 10.1 04/01/2018 [facility] % 11:51 AM GLASS BULB MACHINE ADJUSTER [place] Granulocytes/Jean Claude 70.0 45.8 - 04/01/2018 [facility] trophils 73.7 % 11:51 AM GLASS BULB MACHINE ADJUSTER [place] Lymphocytes 1.1 0.9 - 2.9 04/01/2018 [facility] Absolute K/uL 11:51 AM GLASS BULB MACHINE ADJUSTER [place] MIDS Absolute 0.8 0.2 - 0.8 04/01/2018 [facility] K/uL 11:51 AM GLASS BULB MACHINE ADJUSTER [place] Granulocytes/Jean Claude 4.7 2.1 - 8.7 04/01/2018 [facility] trophils K/uL 11:51 AM GLASS BULB MACHINE ADJUSTER [place] Absolute Specimen Anatomical Collection Method Collection Time Receive d Time (Source) Location / / Volume Laterality 04/01/2018 11:32 04/01/2018 AM GLASS BULB MACHINE ADJUSTER 11:32 AM GLASS BULB MACHINE ADJUSTER Narrative [facility] [place] - 04/01/2018 11:[address] [facility] Fax Phone Outside Referring Lab Provider LAB BLOOD ORDERABLES Performing Organization Address City/[facility]/ZIP Code Phon e Number [facility] JAMES CUELLAR [address] [place] [address] AST (04/01/2018 11:32 AM GLASS BULB MACHINE ADJUSTER) P athologist Signature AST 24 8 - 43 U/L 04/02/2018 [facility] 2:25 PM GLASS BULB MACHINE ADJUSTER [facility]ENTER [facility] Specimen Anatomical Collection Method Collection Time Receive d Time (Source) Location / / Volume Laterality 04/01/2018 11:32 04/02/2018 AM GLASS BULB MACHINE ADJUSTER 12:27 PM GLASS BULB MACHINE ADJUSTER Narrative [facility] - 03/19 2:25 PM GLASS BULB MACHINE ADJUSTER Called to CALL CANCELLED - RESULTS FAXED , , 14:29 04/01/[address] [facility] Fax Phone Outside Referring Lab Provider LAB BLOOD ORDERABLES Performing Organization Address City/State/ZIP Code Phon e Number [facility] [address] [place] [address] (ABNORMAL) C-reactive protein (04/01/2018 11:32 AM GLASS BULB MACHINE ADJUSTER) athologist [facility] CRP 21.0 (H) 0.0 - 9.9 04/02/2018 [facility] mg/L 2:25 PM GLASS BULB MACHINE ADJUSTER [facility]ENTER LAB[facility] Comment: . Specimen Anatomical Collection Method Collection Time Receive d Time (Source) Location / / Volume Laterality 04/01/2018 11:32 04/02/2018 AM GLASS BULB MACHINE ADJUSTER 12:28 PM GLASS BULB MACHINE ADJUSTER Narrative [facility] - 03/19 2:25 PM GLASS BULB MACHINE ADJUSTER Called to CALL CANCELLED - RESULTS FAXED , , 14:29 04/01/[address] [facility] Fax Phone Outside Referring Lab Provider LAB BLOOD ORDERABLES Performing Organization Address City/[facility] e Number [facility] [address] [place] [address] Creatinine, Serum (04/01/2018 11:32 AM GLASS BULB MACHINE ADJUSTER) athologist [facility] Creatinine 1.2 0.4 - 1.2 04/02/2018 [facility] mg/dL 2:25 PM GLASS BULB MACHINE ADJUSTER [facility] Specimen Anatomical Collection Method Collection Time Receive d Time (Source) Location / / Volume Laterality 04/01/2018 11:32 04/02/2018 AM GLASS BULB MACHINE ADJUSTER 12:27 PM GLASS BULB MACHINE ADJUSTER [facility]OR[facility] - 03/19 2:25 PM GLASS BULB MACHINE ADJUSTER Called to CALL CANCELLED - RESULTS FAXED , , 14:29 04/01/[address] Carl [facility] Fax Phone Outside Referring Lab Provider LAB BLOOD ORDERABLES Performing Organization Address City/[facility] e Number [facility] [address] [place] [address] ALT (04/01/2018 11:32 AM GLASS BULB MACHINE ADJUSTER) athologist [facility] ALT (SGPT) 28 0 - 34 U/L 04/02/2018 [facility] 2:25 PM GLASS BULB MACHINE ADJUSTER [facility]ENTER [facility] Comment: NOTE: Normal range change effective 01/17 Specimen Anatomical Collection Method Collection Time Receive d Time (Source) Location / / Volume Laterality 04/01/2018 11:32 04/02/2018 AM GLASS BULB MACHINE ADJUSTER 12:27 PM GLASS BULB MACHINE ADJUSTER [facility] - 03/19 2:25 PM GLASS BULB MACHINE ADJUSTER Called to CALL CANCELLED - RESULTS FAXED , , 14:29 04/01/[address] [facility] Fax Phone Outside Referring Lab Provider LAB BLOOD ORDERABLES Performing Organization Address City/State/ZIP Code Phon e Number [facility] [address] [place] [address] Albumin (04/01/2018 11:32 AM GLASS BULB MACHINE ADJUSTER) athologist Signature Albumin, Serum 4.3 3.5 - 5.0 04/02/2018 [facility] g/dL 2:25 PM [facility] Specimen Anatomical Collection Method Collection Time Receive d Time (Source) Location / / Volume Laterality 04/01/2018 11:32 04/02/2018 AM GLASS BULB MACHINE ADJUSTER 12:27 PM GLASS BULB MACHINE ADJUSTER [facility] - 03/19 2:25 PM GLASS BULB MACHINE ADJUSTER Called to CALL CANCELLED - RESULTS FAXED , , 14:29 04/01/[address] [facility] Fax Phone Outside Referring Lab Provider LAB BLOOD ORDERABLES Performing Organization Address City/[facility]/ZIP Code Phon e Number [facility] [address] [place] [address] (ABNORMAL) ESR-Sed rate (04/01/2018 11:32 AM GLASS BULB MACHINE ADJUSTER) P athologist Signature Sed Rate 67 (H) 0 - 29 04/02/2018 [facility] mm/hr 1:30 PM [facility] Specimen Anatomical Collection Method Collection Time Receive d Time (Source) Location / / Volume Laterality 04/01/2018 11:32 04/02/2018 AM GLASS BULB MACHINE ADJUSTER 12:25 PM GLASS BULB MACHINE ADJUSTER [facility] - 03/19 1:30 PM GLASS BULB MACHINE ADJUSTER Called to CALL CANCELLED - RESULTS FAXED , , 14:29 04/01/[address] Carl Prado [facility] Rheumatology Fax Phone Outside Referring Lab Provider LAB BLOOD ORDERABLES Performing Organization Address City/State/ZIP Code Phon e Number [facility] [address] [place] [address] documented in this encounter Visit Diagnoses Diagnosis Weak urinary stream Slowing of urinary stream documented in this encounter Care Teams Extension Course Counselor Relationship Specialty Start Date End Date Adriane Patel APRN, TILE INSPECTOR PCP - General 09/22/17 07/06/[address] [place] [address] documented as of this encounter
--- OUTSIDE RECORDS SUMMARY | 2021-10-24 10:46 | XMS_ITS | Encounter Summary ---
:1945 Author Organization [facility] Address [address] [place] [address] Care Team Providers Name Role Phone Adriane Patel INSTRUCTIONAL DESIGN MANAGER, INFRASTRUCTURE MANAGER Primary Care Provider [phone] Encounter Details Date Type Department Care Team Description 12/07/2017 Telephone [place] Adriane Patel, [address] INSTRUCTIONAL DESIGN MANAGER, INFRASTRUCTURE MANAGER [place], [place] [address] [phone] [place], [place] [address] Social History Tobacco Use [...] Notes Telephone Encounter - Luciana Verena - 12/07/2017 1:34 PM CDT Mammogram results will [facility] to us from [facility]. Telephone Encounter - Adriane Patel NP - 12/07/2017 1:21 PM CDT The patient is inquiring about her mammogram results from [facility], please call and find out if they are available. Thanks Suresh documented in this encounter Plan of Treatment Not on filedocumented as of this encounter Visit Diagnoses Not on filedocumented in this encounter Care Teams Soap Press Feeder Relationship Specialty Start Date End Date Adriane Patel, INSTRUCTIONAL DESIGN MANAGER, INFRASTRUCTURE MANAGER PCP - General 09/22/17 07/06/19 100 [facility] [place] [address] documented as of this encounter
--- OUTSIDE RECORDS SUMMARY | 2021-10-24 10:46 | XMS_ITS | Encounter Summary ---
:1945 Author Organization [facility] Address [address] [place] [address] Care Team Providers Name Role Phone PatelAdriane henley Ronak HUMAN SERVICES ASSISTANT, DEPUTY COURT CLERK Primary Care Provider [phone] Reason for Visit Reason Comments Medication Visit Encounter Details Date Type Department Care Team Description 02/19/2018 Office Visit Adriane Fernández Type 2 diabetes [address] M, LEONARD RESENDEZ mellitus with other [place], [place] [address] specified [address] [place] [address] complication, without [phone] long-ter m current use of insulin (HCC [...] Comments Blood Pressure 120/72 02/19/2018 4:04 PM COAL EQUIPMENT OPERATOR Pulse 90 02/19/2018 4:04 PM COAL EQUIPMENT OPERATOR Temperature 36.6 ??C (97.8 ??F) 02/19/2018 4:04 PM COAL EQUIPMENT OPERATOR Respiratory Rate 16 02/19/2018 4:04 PM COAL EQUIPMENT OPERATOR Oxygen Saturation 99% 02/19/2018 4:04 PM COAL EQUIPMENT OPERATOR Inhaled Oxygen Concentration - - Weight 81.1 kg (178 lb 12.7 oz) 02/19/2018 4:04 PM COAL EQUIPMENT OPERATOR Height 161 cm (5' 3.39) 02/19/2018 4:04 PM COAL EQUIPMENT OPERATOR Body Mass Index 31.29 02/19/2018 4:04 PM COAL EQUIPMENT OPERATOR documented in this encounter Patient Instructions Patient InstructionsChgarfield Patel APRN, CNP - 02/19/2018 4:00 PM COAL EQUIPMENT OPERATOR Glipizide 5 mg twice daily x one month. Continue Januvia 50 mg daily until pills runt out x one month. Closely monitor blood sugars and if they start elevate. EQUIPMENT OPERATOR documented in this encounter Progress Notes Adriane [...] plan of care. Adriane Patel APRN, LEONARD EQUIPMENT OPERATOR documented in this encounter Plan of Treatment Not on filedocumented as of this encounter Visit Diagnoses Diagnosis Type 2 diabetes mellitus with other spec ified complication, without long-term current use of insulin (HCC) - Primary documented in this encounter Care Teams Slurry Tank Tender Relationship Specialty Start Date End Date Adriane Patel APRN, DEPUTY COURT CLERK PCP - General 09/22/17 07/06/19 100 [facility] [place] [address] documented as of this encounter
--- OUTSIDE RECORDS SUMMARY | 2021-10-24 10:46 | XMS_ITS | Encounter Summary ---
:1945 Author Organization [facility] Address [address] [place] [address] Care Team Providers Name Role Phone Adriane Patel FLUOROSCOPE OPERATOR, GROUNDSKEEPER SUPERVISOR Primary Care Provider [phone] Reason for Visit Reason Onset Date Comments Coding 04/08/2018 Encounter Details Date Type Department Care Team Description 04/08/2018 Telephone [place] Adriane Patel, Coding [address] FLUOROSCOPE OPERATOR, GROUNDSKEEPER SUPERVISOR [place], [place] [address] [address] [facility] [address] [phone] [place], [place] [address] Social History Tobacco Use [...] - 04/09/2018 1:00 PM CST Patient informed RIALS PLANNING MANAGER Telephone Encounter - Margareth Sanchez RN - 04/09/2018 9:38 AM CST I spoke to billing department who said the patient called 2 weeks ago and this was already changed and is back with insurance. According to billing this has been taken care of. RIALS PLANNING MANAGER Telephone Encounter - Adriane Patel APRN, LEONARD - 04/08/2018 2:52 PM MATERIALS PLANNING MANAGER This medication review, unsure where billing go preventative? Please check with billing/coding. Thanks, Suresh RIALS PLANNING MANAGER Telephone Encounter - Margareth Sanchez RN - 04/08/2018 2:46 PM CST Please review and let me know what you'd like me to talk about with coding. RIALS PLANNING MANAGER Telephone Encounter - Phoebe Donohue - 04/08/2018 2:28 PM CST Patient received a bill from February 19 visit. She was here for a med review. Apparently it was billed as a preventative and not office visit. She is wondering if this can be changed. Please advise. RIALS PLANNING MANAGER documented in this encounter Plan of Treatment Not on filedocumented as of this encounter Visit Diagnoses Not on filedocumented in this encounter Care Teams Locate Technician Relationship Specialty Start Date End Date Adriane Patel APRN, GROUNDSKEEPER SUPERVISOR PCP - General 09/22/17 07/06/19 100 [facility] [place] [address] documented as of this encounter
--- OUTSIDE RECORDS SUMMARY | 2021-10-24 10:46 | XMS_ITS | Encounter Summary ---
:1945 Author Organization [facility] Address [address] [place] [address] Care Team Providers Name Role Phone Adriane Patel APRN, CNP Primary Care Provider [phone] Reason for Referral Consultation (Routine) - Closed Specialty Diagnoses / Procedures Referred By Contact Refer red To Contact Diagnoses Benign paroxysmal positional vertigo, unspecified laterality Adriane Patel, [facility] LEONARD RESENDEZ SYSTEM - [place] [address] [address] [place] [address] Phone: Fax: Referral ID Status Reason Start Date Expiration Date Visits Requ ested Visits Authorized [id number] Closed 02/26/2018 02/26/2019 1 1 Scheduling Instructions Please schedule the patient for physical therapy at [facility]. Thanks, Adriane Patel CNP UCE RUNNER Reason for Visit Reason Onset Date Comments Referral 02/26/2018 Encounter Details Date Type Department Care Team Description 02/26/2018 Telephone [place] Adriane Patel, Referral [address] [facility] [address] LEONARD RESENDEZ [place], [place] [address] [phone] [place], [place] [address] Social History Tobacco Use [...] 12/23/2018 organizations such as mandaeism groups, unions, fra[employer]PEK [employer] or athletic groups, or school groups? How [...] Donoh[place] - 02/26/2018 9:56 AM CST Faxed. UCE RUNNER Telephone Encounter - Adriane Patel APRN, CNP - 02/26/2018 9:33 AM PRODUCE RUNNER This has been completed. Please fax. Suresh Cm UCE RUNNER Telephone Encounter - Ana Cristina Prado MA - 02/26/2018 8:42 AM CST Please send referral and we will fax. Patient will be seen at 11am today UCE RUNNER Telephone Encounter - Phoebe Donohue - 02/26/2018 8:37 AM CST Patient woke up with vertigo again and would like referral to [facility]. They are saving a spot for her at 11:00 . Please fax referral to [phone]. UCE RUNNER documented in this encounter Plan of Treatment Scheduled Referrals Name Type Priority Associated Diagnoses Order S chedule Ambulatory External Outpatient Referral Routine Benign paroxys mal Ordered: Referral positional vertigo, 01/11/20 19 unspecified laterality documented as of this encounter Visit Diagnoses Diagnosis Benign paroxysmal positional vertigo, un specified laterality - Primary documented in this encounter Care Teams Interface Analyst Relationship Specialty Start Date End Date Adriane Patel APRN, BACKSIDE GRINDER PCP - General 09/22/17 07/06/19 100 [place] [address] documented as of this encounter
--- OUTSIDE RECORDS SUMMARY | 2021-10-24 10:46 | XMS_ITS | Encounter Summary ---
:1945 Author Organization [facility] Address [address] [place] [address] Care Team Providers Name Role Phone Adriane Patel COORDINATOR SKILL TRAINING PROGRAM, HRIS ANALYST Primary Care Provider [phone] Reason for Visit Reason Onset Date Comments NEW RX 03/23/2018 Encounter Details Date Type Department Care Team Description 03/23/2018 Telephone [place] Adriane Patel, NEW RX [address] COORDINATOR SKILL TRAINING PROGRAM, HRIS ANALYST [place], [place] [address] [address] [facility] [address] [address] [phone] [place], [place] [address] Social History Tobacco Use [...] 127/74 157/81 111/63. Patient also advised to monitorher blood sugars for 2 weeks and get back to us. ER DEVELOPMENT DIRECTOR Telephone Encounter - Adriane Patel APRN, LEONARD - 03/23/2018 4:42 PM CAREER DEVELOPMENT DIRECTOR The patient can just discontinue the Januvia, as we increased her Glipizide, lets have her continue to monitor blood sugars x 2 weeks and then call us. Thanks, Suresh ER DEVELOPMENT DIRECTOR Telephone Encounter - Ana Cristina Prado MA - 03/23/2018 4:30 PM CST Please advise ER DEVELOPMENT DIRECTOR Telephone Encounter - Di Sloan - 03/23/2018 4:18 PM CST Suresh was going to put her on a new Rx once she was done. She is done now and would like to know what she should be on now. She uses [facility] [employer] and would like a call back so she knows what plan B is. ER DEVELOPMENT DIRECTOR documented in this encounter Plan of Treatment Not on filedocumented as of this encounter Visit Diagnoses Not on filedocumented in this encounter Care Teams Plastic And Reconstructive Surgeon Relationship Specialty Start Date End Date Adriane Patel APRN, HRIS ANALYST PCP - General 09/22/17 07/06/19 [address] [place] [address] documented as of this encounter
--- OUTSIDE RECORDS SUMMARY | 2021-10-24 10:46 | XMS_ITS | Encounter Summary ---
:1945 Author Organization [facility] Address [address] [place] [address] Care Team Providers Name Role Phone Patel, Adriane Simons PROPERTY ADJUSTER, AMMONIA NITRATE OPERATOR Primary Care Provider [phone] Reason for Visit Reason Comments Medication Visit Shortness of Breath Encounter Details Date Type Department Care Team Description 04/22/2018 Office Visit [place] Adriane Patel Type 2 diabetes mellitus wit hout complication, without long- term current use of insulin (HCC) (Primary Dx); [address] M, MAL, LEONARD Dyspnea on exertion; [place], [place] [address] Hyperlipidemia, unspecified hyperlipidem ia type [address] [place], [place] [phone] [address] Social History Tobacco Use Types Packs/Day Years [...] Comments Blood Pressure 122/80 04/22/2018 9:34 AM CIVIL ENGINEERING INTERN Pulse 81 04/22/2018 9:34 AM CIVIL ENGINEERING INTERN Temperature 36.3 ??C (97.4 ??F) 04/22/2018 9:34 AM CIVIL ENGINEERING INTERN Respiratory Rate 16 04/22/2018 9:34 AM CIVIL ENGINEERING INTERN Oxygen Saturation 99% 04/22/2018 9:34 AM CIVIL ENGINEERING INTERN Inhaled Oxygen Concentration - - Weight 81.9 kg (180 lb 8.9 oz) 04/22/2018 9:34 AM CIVIL ENGINEERING INTERN Height 161 cm (5' 3.39) 04/22/2018 9:34 AM CIVIL ENGINEERING INTERN Body Mass Index 31.6 04/22/2018 9:34 AM CIVIL ENGINEERING INTERN documented in this encounter Patient Instructions Patient InstructionsChgarfield Patel APRN, CNP - 04/22/2018 9:20 AM CIVIL ENGINEERING INTERN Crestor 2.5 mg daily Call schedule cardiology appointment Januvia 50 mg daily in addition to Glipizide 10 mg twice daily Baby aspirin L ENGINEERING INTERN documented in this encounter Progress Notes Adriane [...] bilaterally, when she was walking to her [employer] shop, located [place] a [place],outside in [...] by mouth 1 (one) time each day Discussed the plan of care with [...] previously prescried. 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 XR CHEST 2 VIEWS Routine 04/22/2018 10:53 AM Dyspnea on exerti on Results for this CIVIL ENGINEERING INTERN procedure are i n the results section. documented in this encounter Results ECG 12 lead (04/22/2018 11:00 AM CIVIL ENGINEERING INTERN) Specimen (Source) Anatomical Collection Method Collection Time Re ceived Time Location / / Volume Laterality 04/22/2018 11:00 AM CIVIL ENGINEERING INTERN Narrative 04/22/2018 12:00 AM CIVIL ENGINEERING INTERN This result has an attachment that is no t available. EKG performed in clinic. Patient tolerat ed well. Paper copy sent for interpretation. Adriane Patel APRN, LEONARD ECG ORDERABLES X-ray Chest 2 Views (04/22/2018 10:53 AM CIVIL ENGINEERING INTERN) Anatomical Region Laterality Modality Body Radiographic Imaging Specimen (Source) Anatomical Collection Method Collection Time Re ceived Time Location / / Volume Laterality 04/22/2018 10:53 AM CIVIL ENGINEERING INTERN Impressions 04/22/2018 11:04 AM CIVIL ENGINEERING INTERN IMPRESSION: No acute abnormality. Narrative 04/22/2018 11:04 AM CIVIL ENGINEERING INTERN INDICATION: dyspnea with extertion COMPARISON: Chest x-ray [...] The lungs show no confluent infiltrate. No pneumot horax or pleural effusion. Calcification and mild descending tortuo sity are again seen in the aorta. Postoperative change is re-demonstrated at the right shoulder. IMPRESSION: No acute abnormality. Adriane Patle PROPERTY ADJUSTER, AMMONIA NITRATE OPERATOR IMG XR PROCEDURES Troponin I (04/22/2018 10:33 AM CIVIL ENGINEERING INTERN) athologist Signature Troponin I <0.012 0.012 - 04/22/2018 [facility] 0.034 ng/mL 7:24 PM CIVIL ENGINEERING INTERN [facility] Comment: Note Reference Value Range [...] Volume Laterality Blood (Blood, 04/22/2018 10:33 04/22/2018 6:52 Venous) AM CIVIL ENGINEERING INTERN PM CIVIL ENGINEERING INTERN Adriane Patel APRN, AMMONIA NITRATE OPERATOR LAB BLOOD ORDERABLES Performing Organization Address City/State/ZIP Code Phon e Number [facility] [address] [place] [address] (ABNORMAL) Basic metabolic panel (04/22/2018 10:33 AM CIVIL ENGINEERING INTERN) P athologist Signature Sodium 141 135 - 145 04/22/2018 [facility] [place] mmol/L 12:40 PM [facility] [place] Potassium 3.5 3.5 - 5.1 04/22/2018 [facility] [place] mmol/L 12:40 PM [facility] [place] Comment: . Chloride 108 (H) 98 - 107 mmol/L 04/22/2018 12:40 PM [facility] [place] Comment: . CO2 28 22 - 29 mmol/L 04/22/2018 12:40 PM [facility] [place] Comment: . Creatinine 1.1 0.4 - 1.2 mg/dL 04/22/2018 12:40 PM CIVIL ENGINEERING INTERN [facility] [place] Comment: . BUN 20 5 - 25 mg/dL 04/22/2018 12:40 PM [facility] [place] Comment: . Glucose 204 (H) 70 - 100 mg/dL 04/22/2018 12:40 PM [facility] [place] CIVIL ENGINEERING INTERN Calcium, Total,S 9.4 8.4 - 10.2 mg/dL 04/22/2018 12:40 PM [facility] [place] CIVIL ENGINEERING INTERN Comment: . Fasting? No 04/22/2018 12:38 PM CIVIL ENGINEERING INTERN [facility] [place] Comment: 1+ lipemic Specimen Anatomical Collection Method Collection Time Receive d Time (Source) Location / / Volume Laterality Blood (Blood, 04/22/2018 10:33 04/22/2018 Venous) AM CIVIL ENGINEERING INTERN 12:38 PM CIVIL ENGINEERING INTERN Adriane Patel APRN, AMMONIA NITRATE OPERATOR LAB BLOOD ORDERABLES Performing Organization Address City/State/ZIP Code Phon e Number [facility] [place] [address] [place] [address] (ABNORMAL) CBC Branch Off w/Diff (04/22/2018 10:33 AM CIVIL ENGINEERING INTERN) [facility] Method Time Signature WBC 7.3 3.5 - 10.5 04/22/2018 [facility] K/uL 12:43 PM CIVIL ENGINEERING INTERN [place] RBC 3.72 (L) 3.90 - 04/22/2018 [facility] [place] 5.00 M/uL 12:43 PM CIVIL ENGINEERING INTERN [place] Hemoglobin 11.0 (L) 12.0 - 04/22/2018 [facility] [place] 15.5 g/dL 12:43 PM CIVIL ENGINEERING INTERN [place] Hematocrit 33.7 (L) 35.0 - 04/22/2018 [facility] [place] 44.0 % 12:43 PM CIVIL ENGINEERING INTERN [place] Platelets 196 150 - 450 04/22/2018 [facility] [place] K/uL 12:43 PM CIVIL ENGINEERING INTERN [place] MCV 90.6 81.6 - 04/22/2018 [facility] [place] 98.3 fL 12:43 PM CIVIL ENGINEERING INTERN [place] MCH 29.6 26.0 - 04/22/2018 [facility] [place] 32.0 pg 12:43 PM CIVIL ENGINEERING INTERN [place] MCHC 32.6 32.0 - 04/22/2018 [facility] [place] 36.0 g/dL 12:43 PM CIVIL ENGINEERING INTERN [place] RDW 12.9 11.9 - 04/22/2018 [facility] [place] 15.5 % 12:43 PM CIVIL ENGINEERING INTERN [place] Lymphocytes % 14.7 (L) 18.0 - 04/22/2018 [facility] [place] 45.0 % 12:43 PM CIVIL ENGINEERING INTERN [place] Mid-size Cells 10.4 (H) 3.3 - 10.1 04/22/2018 [facility] [place] % 12:43 PM CIVIL ENGINEERING INTERN [place] Granulocytes/Jean Claude 74.9 (H) 45.8 - 04/22/2018 [facility] [place] trophils 73.7 % 12:43 PM CIVIL ENGINEERING INTERN [place] Lymphocytes 1.1 0.9 - 2.9 04/22/2018 [facility] [place] Absolute K/uL 12:43 PM CIVIL ENGINEERING INTERN [place] MIDS Absolute 0.8 0.2 - 0.8 04/22/2018 [facility] [place] K/uL 12:43 PM CIVIL ENGINEERING INTERN [place] Granulocytes/Jean Claude 5.4 2.1 - 8.7 04/22/2018 [facility] [place] trophils K/uL 12:43 PM CIVIL ENGINEERING INTERN [place] Absolute Specimen Anatomical Collection Method Collection Time Receive d Time (Source) Location / / Volume Laterality Blood (Blood, 04/22/2018 10:33 04/22/2018 Venous) AM CIVIL ENGINEERING INTERN 12:38 PM CIVIL ENGINEERING INTERN Adriane Patel APRN, AMMONIA NITRATE OPERATOR LAB BLOOD ORDERABLES Performing Organization Address City/State/ZIP Code Phon e Number [facility] [place] [address] [place] [address] documented in this encounter Visit Diagnoses Diagnosis Type 2 diabetes mellitus without complic ation, without long-term current use of insulin (HCC) - Primary Dyspnea on exertion Other dyspnea and respiratory abnormalit y Hyperlipidemia, unspecified hyperlipidem ia type documented in this encounter Care Teams Concept Artist Relationship Specialty Start Date End Date Adriane Patel APRN, AMMONIA NITRATE OPERATOR PCP - General 09/22/17 07/06/19 100 [facility] [place] [address] documented as of this encounter
--- OUTSIDE RECORDS SUMMARY | 2021-10-24 10:46 | XMS_ITS | Encounter Summary ---
:1945 Author Organization [facility] Address [address] [place] [address] Care Team Providers Name Role Phone Adriane Patel HIGHWAY COMMISSIONER, CODE ENFORCEMENT OFFICER Primary Care Provider [phone] Encounter Details Date Type Department Care Team Description 04/08/2018 Orders Only [place] Adriane Patel Subclinical hypothyroidism ( Primary Dx); [address] M, HIGHWAY COMMISSIONER, CODE ENFORCEMENT OFFICER Type 2 diabetes mellitus with other spec ified complication, without long-term current use of insulin (HCC) [place], [place] [address] [facility] [address] [address] [place] [address] Social History Tobacco Use Types Packs/Day Years [...] Progress Notes Adriane Patel APRN, CNP - 04/08/2018 7:38 AM CST The patient is due for HGB A1c in April along with a TSH. H UP PERSON documented in this encounter Plan of Treatment Not on filedocumented as of this encounter Results TSH (04/22/2018 10:33 AM MATCH UP PERSON) P athologist Signature TSH, Sensitive 2.05 0.46 - 04/22/2018 [facility] 4.68 mIU/L 8:41 PM [facility] Comment: The results from this [...] (Blood, 04/22/2018 10:33 04/22/2018 6:52 Venous) AM MATCH UP PERSON PM MATCH UP PERSON Adriane Patel APRN, CNP LAB BLOOD ORDERABLES Performing Organization Address City/State/ZIP Code Phon e Number [facility] [address] [place] [address] (ABNORMAL) Hemoglobin A1c (04/22/2018 10:33 AM MATCH UP PERSON) Analysis Performed At Patho logist Time Signature Hemoglobin A1C 9.0 (H) 4.0 - 5.6 04/22/2018 [place] % A1C 7:27 PM [facility] Comment: Reference Range [...] (Blood, 04/22/2018 10:33 04/22/2018 6:52 Venous) AM MATCH UP PERSON PM MATCH UP PERSON Adriane Patel APRN, CODE ENFORCEMENT OFFICER LAB BLOOD ORDERABLES Performing Organization Address City/State/ZIP Code Phon e Number [facility] [address] [place] [address] documented in this encounter Visit Diagnoses Diagnosis Subclinical hypothyroidism - Primary Other specified acquired hypothyroidism Type 2 diabetes mellitus with other spec ified complication, without long-term current use of insulin (HCC) documented in this encounter Care Teams Sofa Inspector Relationship Specialty Start Date End Date Adriane Patel APRN, CODE ENFORCEMENT OFFICER PCP - General 09/22/17 07/06/19 100 [place] [address] documented as of this encounter
--- OUTSIDE RECORDS SUMMARY | 2021-10-24 10:46 | XMS_ITS | Encounter Summary ---
:[address] [facility] Address [address] [place] [address] Care Team Providers Name Role Phone Adriane Patel RUG DYER, PLUMBING MANAGER Primary Care Provider [phone] Reason for Visit Reason Onset Date Comments referral specifics needed 01/20/2018 Encounter Details Date Type Department Care Team Description 01/20/2018 Telephone [place] Adriane Patel, referral specifics [address] RUG DYER, PLUMBING MANAGER needed [place], [place] [address] [address] [phone] [place], [place] [address] Social History Tobacco Use [...] PM CST Paperwork faxed to Denis at [facility] at [phone] as requested. C BLOWER Telephone Encounter - Ana Cristina Prado MA - 01/22/2018 2:07 PM CST Please fax to [phone] C BLOWER Telephone Encounter - Adriane Patel APRN, LEONARD - 01/22/2018 11:26 AM ATTIC BLOWER Order completed. C BLOWER Telephone Encounter - Adriane Patel APRN, LEONARD - 01/22/2018 11:26 AM ATTIC BLOWER The order has been placed. Suresh Cm C BLOWER Telephone Encounter - Ana Cristina Prado MA - 01/22/2018 9:46 AM CST [place] C BLOWER Telephone Encounter - Luciana Albarado - 01/22/2018 9:37 AM CST Denis with [facility] called to let Suresh know to send the order with Abdomen Limited on it. Pleasefax order to [phone]. Call [phone] with any questions. C BLOWER Telephone Encounter - Adriane Patel APRN, LEONARD - 01/20/2018 4:06 PM ATTIC BLOWER The patient was notified the order to [place] has not been placed as I will discuss with the tech on Thursday the purpose of the order to make sure the testing is ordered correctly. C BLOWER Telephone Encounter - Margareth Sanchez RN - 01/20/2018 1:39 PM CST [facility] stated the referral did not state ultrasound on it. They are requesting an ultrasound order for pelvic ultrasound with dx of right groin mass be sent over to them. Please order and we will fax. C BLOWER Telephone Encounter - Luciana Albarado - 01/20/2018 12:25 PM CST Denis with [facility] called stating he recived the referral for Marcial regarding the open sore in left groin area, but he needs a specific type of exam to be requested on the referral. C BLOWER documented in this encounter Plan of Treatment Scheduled Orders Name Type Priority Associated Diagnoses Order S chedule Ultrasound Abdomen Imaging Routine Left groin mass Expect ed: 01/22/2018, Limited Expires: 2018 documented as of this encounter Results (ABNORMAL) Hemoglobin A1c (02/15/2018 1:50 PM ATTIC BLOWER) Analysis Performed At Patho logist Time Signature Hemoglobin A1C 8.2 (H) 4.0 - 5.6 02/15/2018 [facility] % A1C 6:32 PM [facility] Comment: Reference Range [...] / Volume Laterality Blood (Blood, 02/15/2018 1:50 PM 02/16/20 18 6:14 Venous) ATTIC BLOWER PM ATTIC BLOWER Adriane Patel APRN, PLUMBING MANAGER LAB BLOOD ORDERABLES Performing Organization Address City/State/ZIP Code Phon e Number [facility] [address] [place] [address] documented in this encounter Visit Diagnoses Diagnosis Type 2 diabetes mellitus with complicati on, without long-term current use of insulin (HCC) - Primary Left groin mass documented in this encounter Care Teams Electromedical Equipment Repairer Relationship Specialty Start Date End Date Adriane Patel APRN, PLUMBING MANAGER PCP - General 09/22/17 07/06/19 100 [place] [address] documented as of this encounter
--- OUTSIDE RECORDS SUMMARY | 2021-10-24 10:46 | XMS_ITS | Encounter Summary ---
:1945 Author Organization [facility] Address [address] [place] [address] Care Team Providers Name Role Phone PatelAdriane henley Ronak CHIEF OF SERVICE, FLAGSETTER Primary Care Provider [phone] Reason for Visit Reason Comments Follow-up Diabetes Encounter Details Date Type Department Care Team Description 04/01/2018 Office Visit [place] Adriane Patel Type 2 diabetes mellitus wit h other specified complication, without long-term current use of insulin (HCC) (Primary Dx); [address] M, MAL, LEONARD Weak urinary stream [place], [place] [address] [address] [place] [address] Social History Tobacco Use Types Packs/Day Years [...] Comments Blood Pressure 128/84 04/01/2018 10:33 AM DATA PROCESSING SYSTEMS CONSULTANT Pulse 88 04/01/2018 10:33 AM DATA PROCESSING SYSTEMS CONSULTANT Temperature 35.9 ??C (96.6 ??F) 04/01/2018 10:33 AM DATA PROCESSING SYSTEMS CONSULTANT Respiratory Rate 16 04/01/2018 10:33 AM DATA PROCESSING SYSTEMS CONSULTANT Oxygen Saturation 97% 04/01/2018 10:33 AM DATA PROCESSING SYSTEMS CONSULTANT Inhaled Oxygen Concentration - - Weight 81.4 kg (179 lb 7.3 oz) 04/01/2018 10:33 AM DATA PROCESSING SYSTEMS CONSULTANT Height 157.5 cm (5' 2) 04/01/2018 10:33 AM DATA PROCESSING SYSTEMS CONSULTANT Body Mass Index 32.82 04/01/2018 10:33 AM DATA PROCESSING SYSTEMS CONSULTANT documented in this encounter Patient Instructions Patient InstructionsChgarfield Patel APRN, CNP - 04/01/2018 10:20 AM DATA PROCESSING SYSTEMS CONSULTANT Glipizide 10 mg twice daily Lisinopril 2.5 mg daily PROCESSING SYSTEMS CONSULTANT documented in this encounter Progress Notes Adriane [...] control of her symptoms, managed by her residential sales consultant. The patient???s hemoglobin A1c on 02/15/2018 was [...] normalization in her kidney functions. The patient isnot on lisinopril and is unsure why she [...] she is due for labs for her residential sales consultant. ROS: GENITOURINARY: See HPI. The patient reports [...] is currently under the care of a residential sales consultant, with stable medication and good control of [...] plan of care. Adriane Patel APRN, CNP PROCESSING SYSTEMS CONSULTANT documented in this encounter Plan of Treatment Not on filedocumented as of this encounter Results (ABNORMAL) Urine culture (clean catch) (04/01/2018 11:39 AM DATA PROCESSING SYSTEMS CONSULTANT) [facility] Method Time Signature Urine Culture Escherichia coli 04/03/2018 [facility] >100,000 cfu/ml 8:14 AM DATA PROCESSING SYSTEMS CONSULTANT [facility] Specimen Anatomical Collection Method Collection Time Receive d Time (Source) Location / / Volume Laterality Urine, Clean 04/01/2018 11:39 04/02/2018 Catch AM DATA PROCESSING SYSTEMS CONSULTANT 12:50 PM DATA PROCESSING SYSTEMS CONSULTANT Narrative [facility] - 03/19 8:14 AM DATA PROCESSING SYSTEMS CONSULTANT Patient does not have an Amoxicillin or [...] coli Trimeth/Sulfa <=2/38 mcg/mL: Susceptible Adriane Patel CHIEF OF SERVICE, FLAGSETTER LAB MICROBIOLOGY - GENERA L ORDERABLES Performing Organization Address City/State/ZIP Code Phon e Number [facility] [address] [place] [id number] (ABNORMAL) Urinalysis with reflex microscopic (clean catch) (04/01/2018 11:39 AM DATA PROCESSING SYSTEMS CONSULTANT) [facility] Method Time Signature Type COLLECTION HAT 04/01/2018 [facility] 11:52 AM [place]ALL[place] DATA PROCESSING SYSTEMS CONSULTANT Color, Urine STRAW YELLOW 04/01/2018 [facility] 11:52 AM [place] DATA PROCESSING SYSTEMS CONSULTANT Clarity, HAZY (A) CLEAR 04/01/2018 [facility] Urine 11:52 AM [place] DATA PROCESSING SYSTEMS CONSULTANT Glucose, 100 (A) NEGATIVE 04/01/2018 [facility] Urine mg/dL 11:52 AM [place] DATA PROCESSING SYSTEMS CONSULTANT Bilirubin, NEGATIVE NEGATIVE 04/01/2018 [facility] Urine 11:52 AM [place] DATA PROCESSING SYSTEMS CONSULTANT Ketones, NEGATIVE NEGATIVE 04/01/2018 [facility] Urine mg/dL 11:52 AM [place] DATA PROCESSING SYSTEMS CONSULTANT Specific 1.020 1.000 04/01/2018 [facility] [place], ->=1.030 11:52 AM [place]ALLS Urine DATA PROCESSING SYSTEMS CONSULTANT Blood, Urine NEGATIVE NEGATIVE 04/01/2018 [facility] 11:52 AM [place] DATA PROCESSING SYSTEMS CONSULTANT pH, Urine 5.0 5.0 - 7.0 04/01/2018 [facility] 11:52 AM [place] DATA PROCESSING SYSTEMS CONSULTANT Protein, NEGATIVE NEGATIVE-TRA 04/01/2018 [facility] Urine CE mg/dL 11:52 AM [place] DATA PROCESSING SYSTEMS CONSULTANT Urobilinogen, 0.2 0.2 - 1.0 04/01/2018 [facility] Urine E.U./dL 11:52 AM [place] DATA PROCESSING SYSTEMS CONSULTANT Nitrite, NEGATIVE NEGATIVE 04/01/2018 [facility] Urine 11:52 AM [place] DATA PROCESSING SYSTEMS CONSULTANT Leukocytes, MODERATE (A) NEGATIVE 04/01/2018 [facility] Urine 11:52 AM [place] DATA PROCESSING SYSTEMS CONSULTANT Specimen Anatomical Collection Method Collection Time Receive d Time (Source) Location / / Volume Laterality Urine (Urine, 04/01/2018 11:39 04/01/2018 Clean Catch) AM DATA PROCESSING SYSTEMS CONSULTANT 11:40 AM DATA PROCESSING SYSTEMS CONSULTANT Adriane Patel APRN, LEONARD LAB URINE ORDERABLES Performing Organization Address City/State/ZIP Code Phon e Number [facility] [address] [place] [address] documented in this encounter Visit Diagnoses Diagnosis Type 2 diabetes mellitus with other spec ified complication, without long-term current use of insulin (HCC) - Primary Weak urinary stream Slowing of urinary stream Weak urinary stream Slowing of urinary stream documented in this encounter Care Teams Rn Ccu Relationship Specialty Start Date End Date Adriane Patel APRN, FLAGSETTER PCP - General 09/22/17 07/06/19 [address] [facility] [place] [address] documented as of this encounter
--- OUTSIDE RECORDS SUMMARY | 2021-10-24 10:46 | XMS_ITS | Encounter Summary ---
:1945 Author Organization [facility] Address [address] [place] [address] Care Team Providers Name Role Phone Adriane Patel OPERATORS SCHOOL MANAGER, HIGHWAY RESEARCH ENGINEER Primary Care Provider [phone] Encounter Details Date Type Department Care Team Description 04/20/2018 Telephone [place] Adriane Patel, [address] OPERATORS SCHOOL MANAGER, HIGHWAY RESEARCH ENGINEER [place], [place] [address] [address] [phone] [place], [place] [address] Social History Tobacco Use [...] - 04/20/2018 8:37 AM CST Order faxed. ON PACKAGING MACHINE OPERATOR Telephone Encounter - Margareth Sanchez RN - 04/20/2018 8:20 AM CST Please fax cologuard order with face sheet to the number listed on the form. ON PACKAGING MACHINE OPERATOR documented in this encounter Plan of Treatment Not on filedocumented as of this encounter Visit Diagnoses Not on filedocumented in this encounter Care Teams Sample Examiner Relationship Specialty Start Date End Date Adriane Patel, OPERATORS SCHOOL MANAGER, HIGHWAY RESEARCH ENGINEER PCP - General 09/22/17 07/06/[address] [place] [address] [place] [address] documented as of this encounter
--- OUTSIDE RECORDS SUMMARY | 2021-10-24 10:46 | XMS_ITS | Encounter Summary ---
:1945 Author Organization [facility] Address [address] [place] [address] Care Team Providers Name Role Phone Adriane Patel RAISED PRINTER, LOGISTIC MANAGER Primary Care Provider Encounter Details Date Type Department Care Team Description 04/03/2018 Orders Only [place] Adriane Patel, Urinary tract [address] RAISED PRINTER, LOGISTIC MANAGER infection without [place], [place] [address] hematuria, site [address] [place] [address] unspecified (Primary [phone] Dx) Social History Tobacco Use Types Packs/Day [...] Primary documented in this encounter Care Teams General Supervisor Relationship Specialty Start Date End Date Adriane Patel APRN, LOGISTIC MANAGER PCP - General 09/22/17 07/06/19 100 [facility] [place] [address] documented as of this encounter
--- OUTSIDE RECORDS SUMMARY | 2021-10-24 10:46 | XMS_ITS | Encounter Summary ---
:[address] [facility] Address [address] [place] [address] Care Team Providers Name Role Phone Adriane Patel CORE MICROARCHITECT, SUPERVISING EDITOR NEWS REEL Primary Care Provider [phone] Reason for Visit Reason Onset Date Comments fax 01/20/2018 Encounter Details Date Type Department Care Team Description 01/20/2018 Telephone [place] Adriane Patel, fax [address] CORE MICROARCHITECT, [place], [place] [address] [address] [facility] [address] [phone] [place], [place] [address] Social History Tobacco [...] 01/20/2018 12:12 PM CST Documents faxed to [facility] as requested. MACEUTICAL SERVICE REPRESENTATIVE Telephone Encounter - Margareth Sanchez RN - 01/20/2018 11:34 AM CST Please fax referral for ultrasound to [facility]. MACEUTICAL SERVICE REPRESENTATIVE documented in this encounter Plan of Treatment Not on filedocumented as of this encounter Visit Diagnoses Not on filedocumented in this encounter Care Teams Commercial Loan Underwriter Relationship Specialty Start Date End Date Adriane Patel APRN, SUPERVISING EDITOR NEWS REEL PCP - General 09/22/17 07/06/[address] [place] [address] documented as of this encounter
--- OUTSIDE RECORDS SUMMARY | 2021-10-24 10:46 | XMS_ITS | Encounter Summary ---
:1945 Author Organization [facility] Address [address] [place] [address] Care Team Providers Name Role Phone Adriane Patel Ronak REGISTERED ACCOUNT ADMINISTRATOR, BRICK PITCHER Primary Care Provider [phone] Encounter Details Date Type Department Care Team Description 02/15/2018 Lab [place] Type 2 diabetes mellitus wit h [address] complication, without [place], [place] [address] long-term current use of [phone] insulin (HCC) Social History Tobacco Use Types [...] Routine 02/15/2018 1:50 PM Type 2 diabetes Resu lts for this UPPER LEATHER SORTER mellitus with procedure are in the complication, without result s section. long-term current use of insulin (HCC) documented in this encounter Results (ABNORMAL) Hemoglobin A1c (02/15/2018 1:50 PM UPPER LEATHER SORTER) Analysis Performed At Patho logist Time Signature Hemoglobin A1C 8.2 (H) 4.0 - 5.6 02/15/2018 [place] % A1C 6:32 PM [facility] Comment: Reference Range 4.0-5.6% [...] 02/15/2018 1:50 PM 02/16/20 18 6:14 Venous) UPPER LEATHER SORTER PM UPPER LEATHER SORTER Adriane Patel APRN, BRICK PITCHER LAB BLOOD ORDERABLES Performing Organization Address City/State/ZIP Code Phon e Number [facility] [address] [place] [address] documented in this encounter Visit Diagnoses Diagnosis Type 2 diabetes mellitus with complicati on, without long-term current use of insulin (HCC) documented in this encounter Care Teams Chief Radiologic Technologist Relationship Specialty Start Date End Date Adriane Patel APRN, BRICK PITCHER PCP - General 09/22/17 07/06/19 100 [place] [address] documented as of this encounter
--- OUTSIDE RECORDS SUMMARY | 2021-10-24 10:46 | XMS_ITS | Encounter Summary ---
:1945 Author Organization [facility] Address [address] [place] [address] Care Team Providers Name Role Phone Adriane Patel TRACK TEMPLATE MAKER, CLINICAL INFORMATICIST Primary Care Provider [phone] Reason for Visit Reason Comments Med Refill Encounter Details Date Type Department Care Team Description 03/08/2018 Refill [place] Adriane Patel, Type 2 diabetes [address] TRACK TEMPLATE MAKER, CLINICAL INFORMATICIST mellitus with other [place], [place] [address] specified complication, [place], [place] [address] without long-term current use [...] She will start checking again more frequently. NING FRAME CLEANER Telephone Encounter - Adriane Patel APRN, LEONARD - 03/10/2018 2:14 PM SPINNING FRAME CLEANER Great then she understood the directions during our last clinical visit, did you happen to ask her how her blood sugars were running, with the increased dose. Thanks, Suresh NING FRAME CLEANER Telephone Encounter - Lana Knight LPN - 03/10/2018 1:48 PM CST One in the morning and one at night, 5mg tablets. NING FRAME CLEANER Telephone Encounter - Adriane Patel APRN, LEONARD - 03/10/2018 12:34 PM SPINNING FRAME CLEANER Please call the patient and verify the dose she is taking, and find out if her blood sugars have been doing. Thanks, Suresh NING FRAME CLEANER Telephone Encounter - Zoey Thomas MA - [...] Method certified by National Glycohemoglobin Standardization Program. NING FRAME CLEANER documented in this encounter Plan of Treatment Not on filedocumented as of this encounter Visit Diagnoses Diagnosis Type 2 diabetes mellitus with other spec ified complication, without long-term current use of insulin (HCC) - Primary documented in this encounter Care Teams Optics Engineer Relationship Specialty Start Date End Date Adriane Patel, TRACK TEMPLATE MAKER, CLINICAL INFORMATICIST PCP - General Family Medicine 08/20/[address] [place] [address] [place] [address] documented as of this encounter
--- OUTSIDE RECORDS SUMMARY | 2021-10-24 10:46 | XMS_ITS | Encounter Summary ---
:1945 Author Organization [facility] Address [address] [place] [address] Care Team Providers Name Role Phone Adriane Patel CHIEF MINISTER, SECURITY BUSINESS ANALYST Primary Care Provider [phone] Reason for Visit Reason Onset Date Comments Med Refill 03/03/2018 Encounter Details Date Type Department Care Team Description 03/03/2018 Telephone [place] Adriane Patel, Med Refill [address] CHIEF MINISTER, SECURITY BUSINESS ANALYST [place], [place] [address] [address] [address] [phone] [place], [place] [address] Social History Tobacco Use [...] LPN - 03/04/2018 7:50 AM CST Noted NATOR Telephone Encounter - Brenda House - 03/03/2018 4:40 PM CST Picked up glipizide at [facility] already NATOR Telephone Encounter - Ana Cristina Prado MA - 03/03/2018 10:15 AM CST Left message for patient. Need to know if she needs her Glipizide sent to [facility] or [facility]. NATOR documented in this encounter Plan of Treatment Not on filedocumented as of this encounter Visit Diagnoses Not on filedocumented in this encounter Care Teams Rear Load Truck Driver Relationship Specialty Start Date End Date Adriane Patel APRN, SECURITY BUSINESS ANALYST PCP - General 09/22/17 07/06/19 [facility] [address] documented as of this encounter
--- OUTSIDE RECORDS SUMMARY | 2021-10-24 10:46 | XMS_ITS | Encounter Summary ---
:1945 Author Organization [facility] Address [address] [place] [address] Care Team Providers Name Role Phone Adriane Patel DENTAL LABORATORY TECHNICIAN APPRENTICE, STONEMASON SUPERVISOR Primary Care Provider [phone] Reason for Visit Reason Onset Date Comments colonoscopy questions 03/03/2018 Encounter Details Date Type Department Care Team Description 03/03/2018 Telephone [place] Adriane Patel, colonoscopy questions [address] DENTAL LABORATORY TECHNICIAN APPRENTICE, STONEMASON SUPERVISOR [place], [place] [address] [address] [facility] [address] [phone] [place], [place] [address] Social History Tobacco Use [...] Encounter - Lana Knight LPN - 03/04/2018 1:55 PM CST Called and canceled Marcial's colonoscopy at [place]. Called patient and informed her to come in to sign Cologuard form. IRON INSPECTOR Telephone Encounter - Lana Knight LPN - 03/04/2018 9:30 AM CST Left a message for Marcial to call back. IRON INSPECTOR Telephone Encounter - Adriane Patel APRN, LEONARD - 03/04/2018 8:52 AM SOFT IRON INSPECTOR The patient has no family history of colon cancer, please confirm. If there is no family history of colon cancer, Catrina guard testing is appropriate and I will be happy to make those arrangements, shedoes need to complete the form. Thanks Suresh IRON INSPECTOR Telephone Encounter - Lana Knight LPN - 03/04/2018 8:42 AM CST She is really worried about they puncturing her colon. She is wondering if she can have the Cologuard over the colonoscopy? With no past history of colon issues or colon cancer. She has now not had a flare up of diarrhea in a long time and doesn't think this procedure benefits out way the risks. Please advise IRON INSPECTOR Telephone Encounter - Brenda House - 03/03/2018 4:41 PM CST Pt has questions about colonoscopy she is having next week IRON INSPECTOR documented in this encounter Plan of Treatment Not on filedocumented as of this encounter Visit Diagnoses Not on filedocumented in this encounter Care Teams Business Objects Architect Relationship Specialty Start Date End Date Adriane Patel APRN, STONEMASON SUPERVISOR PCP - General 09/22/17 07/06/19 [address] [place], [place] [address] documented as of this encounter
--- OUTSIDE RECORDS SUMMARY | 2021-10-24 10:46 | XMS_ITS | Encounter Summary ---
:1945 Author Organization [facility] Address [address] [place] [address] Care Team Providers Name Role Phone Adriane Patel SHEEP KILLER, SERVICE ORDER TAKER Primary Care Provider [phone] Reason for Visit Reason Onset Date Comments referral 12/04/2017 fax Encounter Details Date Type Department Care Team Description 12/04/2017 Telephone [place] Adriane Patel, referral (fax) [address] SHEEP KILLER, [place], [place] [address] [address] [facility] [address] [phone] [place], [place] [address] Social History Tobacco Use [...] 12/04/2017 8:55 AM CDT Referral faxed to [facility] [phone] Surgery/Scope. Telephone Encounter - Margareth Sanchez RN - 12/04/2017 8:36 AM CDT Please fax referral to GI at [facility] in [place]. documented in this encounter Plan of Treatment Not on filedocumented as of this encounter Visit Diagnoses Not on filedocumented in this encounter Care Teams Welfare Worker Relationship Specialty Start Date End Date Adriane Patel APRN, SERVICE ORDER TAKER PCP - General 09/22/17 07/06/19 [address] [facility] [address] documented as of this encounter
--- OUTSIDE RECORDS SUMMARY | 2021-10-24 10:46 | XMS_ITS | Encounter Summary ---
:1945 Author Organization [facility] Address [address] [place] [address] Care Team Providers Name Role Phone Adriane Patel Ronak MATHEMATICAL TECHNICIAN, DATAPOWER CONSULTANT Primary Care Provider [phone] Encounter Details Date Type Department Care Team Description 12/24/2017 Lab [place] [address] [place], [place] [address] Social History Tobacco Use [...] 10:40 Re sults for this RATE AM GEOLOGICAL ENGINEER procedure are i n the results section. CBC BRANCH OFFICE Routine 12/24/2017 10:40 Result s for this W/DIFF AM GEOLOGICAL ENGINEER procedure are i n the results section. CREATININE, SERUM Routine 12/24/2017 10:40 Result s for this AM GEOLOGICAL ENGINEER procedure are i n the results section. SEDIMENTATION RATE, Routine 12/24/2017 10:40 Resu lts for this AUTOMATED AM GEOLOGICAL ENGINEER procedure are i n the results section. C-REACTIVE PROTEIN Routine 12/24/2017 10:40 Resul ts for this AM GEOLOGICAL ENGINEER procedure are i n the results section. ALT Routine 12/24/2017 10:40 Results for this AM GEOLOGICAL ENGINEER procedure are i n the results section. AST Routine 12/24/2017 10:40 Results for this AM GEOLOGICAL ENGINEER procedure are i n the results section. ALBUMIN Routine 12/24/2017 10:40 Results for this AM GEOLOGICAL ENGINEER procedure are i n the results section. documented in this encounter Results (ABNORMAL) Glomerular filtration rate (GFR) (12/24/2017 10:40 AM GEOLOGICAL ENGINEER) athologist Signature GFR 37 (A) 12/24/2017 [facility] 11:03 AM [facility] 45 (A) 12/24/2017 [facility] [place] GFR 11:03 AM [facility] Comment: GFR calculated from serum creatinine v alue Chronic Kidney Disease less than 60 mL/m in/1.73 m2 Kidney Failure less than 15 mL/min/1.73 m2 Note: effective 07/01/06 IDCT-Traceable MDRD Study Equation used. Specimen Anatomical Collection Method Collection Time Receive d Time (Source) Location / / Volume Laterality 12/24/2017 10:40 12/24/2017 AM GEOLOGICAL ENGINEER 10:40 AM GEOLOGICAL ENGINEER Narrative [facility] - 1109/2017 11:03 AM GEOLOGICAL ENGINEER Fax results to [facility] ,[phone] contact Dr Prado [phone] Outside Referring Lab Provider LAB BLOOD ORDERABLES Performing Organization Address City/State/ZIP Code Phon e Number [facility] [address] [place] [phone] (ABNORMAL) CBC Branch Off w/Diff (12/24/2017 10:40 AM GEOLOGICAL ENGINEER) Patholo gist Method Time Signature WBC 6.7 3.5 - 10.5 12/24/2017 [facility] K/uL 11:03 AM GEOLOGICAL ENGINEER [place] RBC 3.61 (L) 3.90 - 12/24/2017 [facility] 5.00 M/uL 11:03 AM GEOLOGICAL ENGINEER [place] Hemoglobin 11.1 (L) 12.0 - 12/24/2017 [facility] 15.5 g/dL 11:03 AM GEOLOGICAL ENGINEER [place] Hematocrit 32.9 (L) 35.0 - 12/24/2017 [facility] 44.0 % 11:03 AM GEOLOGICAL ENGINEER [place] Platelets 197 150 - 450 12/24/2017 [facility] K/uL 11:03 AM GEOLOGICAL ENGINE[facility] [place] MCV 91.1 81.6 - 12/24/2017 [facility] 98.3 fL 11:03 AM GEOLOGICAL ENGINEER [place] MCH 30.7 26.0 - 12/24/2017 [facility] 32.0 pg 11:03 AM GEOLOGICAL ENGINEER [place] MCHC 33.7 32.0 - 12/24/2017 [facility] 36.0 g/dL 11:03 AM GEOLOGICAL ENGINEER [place] RDW 12.6 11.9 - 12/24/2017 [facility] 15.5 % 11:03 AM GEOLOGICAL ENGINEER [place] Lymphocytes % 13.0 (L) 18.0 - 12/24/2017 [facility] 45.0 % 11:03 AM GEOLOGICAL ENGINEER [place] Mid-size Cells 9.9 3.3 - 10.1 12/24/2017 [facility] % 11:03 AM GEOLOGICAL ENGINEER [place] Granulocytes/Jean Claude 77.1 (H) 45.8 - 12/24/2017 [facility] trophils 73.7 % 11:03 AM GEOLOGICAL ENGINEER [place] Lymphocytes 0.9 0.9 - 2.9 12/24/2017 [facility] Absolute K/uL 11:03 AM GEOLOGICAL ENGINEER [place] MIDS Absolute 0.7 0.2 - 0.8 12/24/2017 [facility] K/uL 11:03 AM GEOLOGICAL ENGINEER [place] Granulocytes/Jean Claude 5.1 2.1 - 8.7 12/24/2017 [facility] trophils K/uL 11:03 AM GEOLOGICAL ENGINEER [place] Absolute Specimen Anatomical Collection Method Collection Time Receive d Time (Source) Location / / Volume Laterality 12/24/2017 10:40 12/24/2017 AM GEOLOGICAL ENGINEER 10:40 AM GEOLOGICAL ENGINEER Narrative [facility] [place] - 12/24/2017 11:03 AM C Fax results to [place] [phone] contact Dr Prado [phone] Outside Referring Lab Provider LAB BLOOD ORDERABLES Performing Organization Address City/State/ZIP Code Phon e Number [facility] [place] [address] [place] [address] AST (12/24/2017 10:40 AM GEOLOGICAL ENGINEER) athologist Signature AST 33 8 - 43 U/L 12/25/2017 [facility] 1:03 PM GEOLOGICAL ENGINEER [facility] Specimen Anatomical Collection Method Collection Time Receive d Time (Source) Location / / Volume Laterality 12/24/2017 10:40 12/25/2017 AM GEOLOGICAL ENGINEER 12:27 PM GEOLOGICAL ENGINEER Narrative [facility] - 10/2017 1:03 PM GEOLOGICAL ENGINEER Called to CALL CANCELLED - RESULTS FAXED , , 12:47 12/24/2017 [id number] Fax results to [facility] 9,[phone] Prado [phone] Outside Referring Lab Provider LAB BLOOD ORDERABLES Performing Organization Address City/[facility]/ZIP Code Phon e Number [facility] [address] [place] [phone] (ABNORMAL) C-reactive protein (12/24/2017 10:40 AM GEOLOGICAL ENGINEER) athologist [facility] CRP 22.9 (H) 0.0 - 9.9 12/25/2017 [facility] mg/L 1:43 PM GEOLOGICAL ENGINEER [facility]ENTER [facility] Comment: . Specimen Anatomical Collection Method Collection Time Receive d Time (Source) Location / / Volume Laterality 12/24/2017 10:40 12/25/2017 AM GEOLOGICAL ENGINEER 12:38 PM GEOLOGICAL ENGINEER Narrative [facility] - 10/2017 1:43 PM GEOLOGICAL ENGINEER Called to CALL CANCELLED - RESULTS FAXED , , 12:47 12/24/2017 [email or web address] Fax results to [facility] 9,[phone] Prado [phone] Outside Referring Lab Provider LAB BLOOD ORDERABLES Performing Organization Address City/State/ZIP Code Phon e Number [facility] [address] [place] [phone] (ABNORMAL) Creatinine, Serum (12/24/2017 10:40 AM GEOLOGICAL ENGINEER) athologist Signature Creatinine 1.4 (H) 0.4 - 1.2 12/24/2017 [facility] mg/dL 11:03 AM GEOLOGICAL ENGINEER [place] Comment: . Specimen Anatomical Collection Method Collection Time Receive d Time (Source) Location / / Volume Laterality 12/24/2017 10:40 12/24/2017 AM GEOLOGICAL ENGINEER 10:40 AM GEOLOGICAL ENGINEER Narrative [facility] [place] - 12/24/2017 11:[address] Fax results to [facility] [phone] contact Dr Prado [phone] Outside Referring Lab Provider LAB BLOOD ORDERABLES Performing Organization Address City/State/ZIP Code Phon e Number [facility] [place] [address] [place] [address] ALT (12/24/2017 10:40 AM GEOLOGICAL ENGINEER) athologist Signature ALT (SGPT) 31 25 - 45 U/L 12/25/2017 [facility] 1:03 PM GEOLOGICAL ENGINEER [facility]ENTER [facility] Comment: . Specimen Anatomical Collection Method Collection Time Receive d Time (Source) Location / / Volume Laterality 12/24/2017 10:40 12/25/2017 AM GEOLOGICAL ENGINEER 12:27 PM GEOLOGICAL ENGINEER Narrative [facility] - 10/2017 1:03 PM GEOLOGICAL ENGINEER Called to CALL CANCELLED - RESULTS FAXED , , 12:47 12/24/2017 [id number] Fax results to [facility] 9,[phone] Prado [phone] Outside Referring Lab Provider LAB BLOOD ORDERABLES Performing Organization Address City/State/ZIP Code Phon e Number [facility] [address] [place] [address] Albumin (12/24/2017 10:40 AM GEOLOGICAL ENGINEER) athologist Signature Albumin, Serum 4.5 3.5 - 5.0 12/25/2017 [facility] L g/dL 1:03 PM GEOLOGICAL ENGINEER CENTER [facility] Specimen Anatomical Collection Method Collection Time Receive d Time (Source) Location / / Volume Laterality 12/24/2017 10:40 12/25/2017 AM GEOLOGICAL ENGINEER 12:27 PM GEOLOGICAL ENGINEER Narrative [facility] - 10/2017 1:03 PM GEOLOGICAL ENGINEER Called to CALL CANCELLED - RESULTS FAXED , , 12:47 12/24/2017 [email or web address] Fax results to [facility] [phone],[phone] Prado [phone] Outside Referring Lab Provider LAB BLOOD ORDERABLES Performing Organization Address City/State/ZIP Code Phon e Number [facility] [address] [place] [phone] (ABNORMAL) ESR-Sed rate (12/24/2017 10:40 AM GEOLOGICAL ENGINEER) P athologist Signature Sed Rate 81 (H) 0 - 29 12/25/2017 [facility] mm/hr 1:27 PM GEOLOGICAL ENGINEER [facility]ENTER [facility] Specimen Anatomical Collection Method Collection Time Receive d Time (Source) Location / / Volume Laterality 12/24/2017 10:40 12/25/2017 AM GEOLOGICAL ENGINEER 12:27 PM GEOLOGICAL ENGINEER Narrative [facility] - 110 10/2017 1:27 PM GEOLOGICAL ENGINEER Called to CALL CANCELLED - RESULTS FAXED , , 12:47 12/24/2017 AN01 Fax results to [facility] 9,[phone] Prado [phone] Outside Referring Lab Provider LAB BLOOD ORDERABLES Performing Organization Address City/[facility]/ZIP Code Phon e Number [facility] [address] [place] [address] documented in this encounter Visit Diagnoses Not on filedocumented in this encounter Care Teams Tax Credit Leasing Consultant Relationship Specialty Start Date End Date Adriane Patel APRN, DATAPOWER CONSULTANT PCP - General 09/22/17 07/06/19 [address] [facility] [place] [address] documented as of this encounter
--- OUTSIDE RECORDS SUMMARY | 2021-10-24 10:46 | XMS_ITS | Encounter Summary ---
:1945 Author Organization [facility] Address [address] [place] [address] Care Team Providers Name Role Phone Adriane Patel Ronak EXCAVATION LABORER, TERMINOLOGIST Primary Care Provider [phone] Reason for Visit Reason Comments Advice Only f/u echo. Pt has a hx of CAD Encounter Details Date Type Department Care Team Description 12/30/2017 Consult [facility] Gregorio Mirza MD Chronic coronary artery dise ase (Primary Dx); [address] [facility] Edema, unspecified type; [place] [address] Essential hypertension [phone] Social History Tobacco Use Types Packs/Day Years [...] Comments Blood Pressure 165/86 12/30/2017 2:09 PM DITCHER OPERATOR Pulse 79 12/30/2017 2:09 PM DITCHER OPERATOR regular Temperature 37.6 ??C (99.7 ??F) 12/30/2017 2:09 PM DITCHER OPERATOR Respiratory Rate 18 12/30/2017 2:09 PM DITCHER OPERATOR Oxygen Saturation 98% 12/30/2017 2:09 PM DITCHER OPERATOR Inhaled Oxygen Concentration - - Weight 82.6 kg (182 lb) 12/30/2017 2:09 PM DITCHER OPERATOR Height - - Body Mass Index 32.25 11/30/2017 11:21 AM CDT documented in this encounter Patient Instructions Patient InstructionsGregorio Mirza MD - 12/30/2017 2:40 PM CST 1. Continue your current medications for the meanwhile. 2. To be seen back in clinic with Adriane Patel APRN, CNP and Chuckie [place] in 1-2 weeks. At thattime bring her blood pressure cuff and a [...] seen sooner if problems or questions arise. HER OPERATOR documented in this encounter Progress Notes Gregorio Mirza MD - 12/30/2017 2:40 PM CST Consultation Patient ID: Marcial Adams is a 72 y.o. female. Referring Provider: Adriane Patel APRN, CNP HPI This very pleasant 72-year-old female is seen in initial Cardiology Consultation with the [facility] at the request of her primary care provider Adriane Patel APRN, CNP. This very pleasant lady has a history of known coronary artery disease having presented initially and January 2015 with atypical shoulder discomfort and shortness of breath with physical activity. Coronary angiographydemonstrated a 70% obstruction of her proximal left anterior descending coronary artery he received a drug-eluting stent. She has done generally well since that time. Most recently she has been followed by [facility] cardiology outreach in the community and was doing well. However, in the last few weeks she is developed problems with bilateral lower extremity edema and shortness of breath. Her shortness of breath tends to be most prominent with activity, such as going up and down her stairs to the basement to do her laundry or while walking up inclines or hills. Her shortness of breath is not associate with chest pain and is not noticeable while sleeping. She denies paroxysmal nocturnal dyspnea, orthopnea, lightheadedness, near-syncope, syncope or palpitations. She has additionally has developedsignificant lower extremity edema bilaterally which improves when [...] currently seen by me after undergoing an echocardiogram prior tothis visit. She actually feels she is doing quite a bit better now than when this consultation was initially requested. 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 Some recent shortness of breath as per HPI. As noted [...] familial bleeding disorder or personal easy bruisability. Dominiqueoes have history of chronic anemia attributed potentially [...] reactive to light and accommodation. Extraocular muscles areintact. Ears and nose are normal. Pharynx is [...] of maximal intensity are normal. The rhythm iscurrently entirely regular. The first and second heart [...] is secondary to her recent flare of rheumatoid arthritis and improving.. Skin is warm and dry. [...] a drug-eluting stent placed in the proximal left anterior descending coronary artery, 01/2015 having done quite well since without recurrent anginal sy mptomatology. 2. Recent symptomatology including shortness of breath and lower extremity edema in the setting of abenign very minimally elevated NT-proBNP may more be likely secondary to salt and volume retention while being treated for rheumatoid arthritis with prednisone. She in any event appears to be improvingslightly at this time as the prednisone has been cut back upon. 3. Multiple ongoing risk factors for coronary disease including type 2 diabetes mellitus, dyslipidemia with a reluctance of patient about taking statins, and known underlying coronary disease. 4. Relatively recently diagnosed rheumatoid arthritis followed by rheumatology. Plan: 1. We will have the patient continue her current medical regimen including aspirin and would stress that given her underlying known coronary disease that low-dose aspirin should be maintained perhaps preferably taken has an enteric- coated 81 mg aspirin. 2. As she is tapered off her prednisone attention needs to be placed on whether or not her edema andshortness of breath recur. If so further cardiovascular [...] be seen back in cardiology clinic in [place] preferably per patient in approximately 3 months. HER OPERATOR documented in this encounter Plan of Treatment Not on filedocumented as of this encounter Visit Diagnoses Diagnosis Chronic coronary artery disease - Primar y Coronary atherosclerosis of unspecified type of vessel, solomon or graft Edema, unspecified type Essential hypertension Unspecified essential hypertension documented in this encounter Care Teams Network/Telecom Engineer Relationship Specialty Start Date End Date Adriane Patel APRN, TERMINOLOGIST PCP - General 09/22/17 07/06/19 [address] [place] [address] documented as of this encounter
--- OUTSIDE RECORDS SUMMARY | 2021-10-24 10:46 | XMS_ITS | Encounter Summary ---
:[address] [facility] Address [address] [place] [address] Care Team Providers Name Role Phone Adriane Patel FURNITURE SALES ASSOCIATE, COMPLIANCE OFFICER Primary Care Provider [phone] Reason for Visit Reason Onset Date Comments EKG'S 04/22/2018 Encounter Details Date Type Department Care Team Description 04/22/2018 Telephone [place] Adriane Patel, EKG'S [address] FURNITURE SALES ASSOCIATE, COMPLIANCE OFFICER [place], [place] [address] [address] [facility] [address] [phone] [place], [place] [address] Social History Tobacco Use [...] PM CST EKGs printed and at the front office help for patient to pickle pumper, she is aware. LER Telephone Encounter - Luciana Verena - 04/22/2018 1:39 PM CST Pt called stating she is scheduled to see a blocking machine operator at [facility] on Thursday04/26/18 andblase said they would like her last two EKG's, prior to her visit. Call Pt as necessary. LER documented in this encounter Plan of Treatment Not on filedocumented as of this encounter Visit Diagnoses Not on filedocumented in this encounter Care Teams Pharmacist Per Diem Relationship Specialty Start Date End Date Adriane Patel APRN, COMPLIANCE OFFICER PCP - General 09/22/17 07/06/[address] [place] [address] [place] [address] documented as of this encounter
--- OUTSIDE RECORDS SUMMARY | 2021-10-24 10:46 | XMS_ITS | Encounter Summary ---
:1945 Author Organization [facility] Address [address] [place] [address] Care Team Providers Name Role Phone Adriane Patel PLEAT TAPER, INTERNET APPLICATION DEVELOPER Primary Care Provider Reason for Visit Reason Onset Date Comments Medication side effect 12/02/2017 Encounter Details Date Type Department Care Team Description 12/02/2017 Telephone [place] Adriane Patel, Medication side effect [address] PLEAT TAPER, INTERNET APPLICATION DEVELOPER [place], [place] [address] [address] [facility] [address] [phone] [place], [place] [address] Social History Tobacco Use [...] it in July. DEXA: Last 08/05/[address] [facility] [place] Jardiance: Samples from rheumatology had been getting her by but than when running through [employer] was $300.00, she would like to try [...] on filedocumented in this encounter Care Teams Eyeglass Fitter Relationship Specialty Start Date End Date Adriane Patel, PLEAT TAPER, INTERNET APPLICATION DEVELOPER PCP - General 09/22/17 07/06/19 [address] [place] [address] documented as of this encounter
--- OUTSIDE RECORDS SUMMARY | 2021-10-24 10:46 | XMS_ITS | Encounter Summary ---
:1945 Author Organization [facility] Address [address] [place] [address] Care Team Providers Name Role Phone Adriane Patel Ronak TONGUER, AUTOMATIC MOLD SANDER Primary Care Provider [phone] Encounter Details Date Type Department Care Team Description 12/01/2017 Lab [place], initial encounter [address] [place], [place] [address] Social History Tobacco Use [...] Signature H pylori Ag, NEGATIVE Negative 12/01/2017 [facility] 2:47 PM CDT [facility] Comment: H. pylori antigen is absent or below the level of detection. Specimen Anatomical Collection Method Collection Time Receive d Time (Source) Location / / Volume Laterality Stool (Per 12/01/2017 7:30 AM 8 Rectum) CDT 12:59 PM CDT Adriane Patel APRN, AUTOMATIC MOLD SANDER LAB BODY FLUIDS AND STOOL S ORDERABLES Performing Organization Address City/State/ZIP Code Phon e Number [facility] [address] [place] [address] documented in this encounter Visit Diagnoses Diagnosis Hungry, initial encounter documented in this encounter Care Teams Fax Machine Operator Relationship Specialty Start Date End Date Adriane Patel APRN, AUTOMATIC MOLD SANDER PCP - General 09/22/17 07/06/19 100 [place] [address] documented as of this encounter
--- OUTSIDE RECORDS SUMMARY | 2021-10-24 10:46 | XMS_ITS | Encounter Summary ---
:[address] [facility] Address [address] [place] [address] Care Team Providers Name Role Phone Adriane Patel Ronak HYDROLOGY PROFESSOR, MANAGER CARDIOVASCULAR Primary Care Provider [phone] Encounter Details Date Type Department Care Team Description 12/24/2017 Consult [place] Gregorio Mirza MD Canceled (Provider) [address] [place], [place] [address] Social History Tobacco Use [...] on filedocumented in this encounter Care Teams Interior Wirer Relationship Specialty Start Date End Date Adriane Patel, HYDROLOGY PROFESSOR, MANAGER CARDIOVASCULAR PCP - General 09/22/17 07/06/19 [address] [place] [address] documented as of this encounter
--- OUTSIDE RECORDS SUMMARY | 2021-10-24 10:46 | XMS_ITS | Encounter Summary ---
:1945 Author Organization [facility] Address [address] [place] [address] Care Team Providers Name Role Phone Adriane Patel APRN, CNP Primary Care Provider [phone] Reason for Referral Consultation (Routine) - Closed Specialty Diagnoses / Procedures Referred By Contact Refer red To Contact Diagnoses Left groin mass Adriane Patel, [facility] LEONARD RESENDE[facility] - [address] [address] [place] [id number] Phone: Fax: Referral ID Status Reason Start Date Expiration Date Visits Requ ested Visits Authorized [id number] Closed 01/20/2018 07/19/2018 1 1 Scheduling Instructions Please schedule a ultrasound of the left groin where there is a mobile mass. Thanks Adriane Patel R REFINERY SUPERVISOR Reason for Visit Reason Comments Leg Pain Encounter Details Date Type Department Care Team Description 01/18/2018 Office Visit [place] Adriane Patel Left groin mass (Primary Dx) ; [address] M, MAL, LEONARD Type 2 diabetes mellitus with other spec ified complication, without long-term current use of insulin (HCC); [place], [place] [address] Discoloration of skin of finger [address] [place] [address] [phone] Social History Tobacco Use Types Packs/Day Years [...] 12/23/2018 organizations such as spiritism groups, unions, fraRavti or athletic groups, or school groups? How [...] Comments Blood Pressure 118/76 01/18/2018 2:52 PM SUGAR REFINERY SUPERVISOR Pulse 80 01/18/2018 2:52 PM SUGAR REFINERY SUPERVISOR Temperature 36 ??C (96.8 ??F) 01/18/2018 2:52 PM SUGAR REFINERY SUPERVISOR Respiratory Rate 20 01/18/2018 2:52 PM SUGAR REFINERY SUPERVISOR Oxygen Saturation - - Inhaled Oxygen Concentration - - Weight 81.8 kg (180 lb 5.4 oz) 01/18/2018 2:52 PM SUGAR REFINERY SUPERVISOR Height 161 cm (5' 3.39) 01/18/2018 2:52 PM SUGAR REFINERY SUPERVISOR Body Mass Index 31.56 01/18/2018 2:52 PM SUGAR REFINERY SUPERVISOR documented in this encounter Patient Instructions Patient InstructionsChgarfield Patel APRN, CNP - 01/18/2018 2:20 PM SUGAR REFINERY SUPERVISOR Ultrasound of the left groin and will call with the results Check when you had your last HGB a1C R REFINERY SUPERVISOR documented in this encounter Progress Notes Adriane [...] is seeing a diabetic specialist in the [facility], who questioned why the metformin was discontinued. The specialists have recommended other medication for her diabetes, but the medication have been expensive, and she is goingin the doughnut whole. The patient wonders if she should [...] was having a difficult time corresponding with [place] in [place], but agrees to contact them to schedule. [...] imaging of the left groin mass at [facility], and possibly refer her to general surgery. The patient will have a HGB A1c done. The patient had her flu shot today. The patient agrees to schedule her colonoscopy. Will discuss her Raynaud's symptoms with the customs patrol officer, to see if this should be evaluated [...] planof care. Adriane Patel APRN, CNP R REFINERY SUPERVISOR documented in this encounter Plan of Treatment Scheduled Referrals Name Type Priority Associated Order Schedule Diagnoses Ambulatory External Outpatient Referral Routine Left groin mas s Ordered: Referral 01/20/2018 documented as of this encounter Results (ABNORMAL) Hemoglobin A1c (07/07/2018 4:35 PM CDT) Analysis Performed At Patho logist Time Signature Hemoglobin A1C 8.7 (H) 4.0 - 5.6 07/07/2018 [place] % A1C 5:44 PM CDT [facility] Comment: Reference Range 4.0-5.6% is [...] 5:26 Venous) CDT PM CDT Adriane Patel APRN, CNP LAB BLOOD ORDERABLES Performing Organization Address City/State/ZIP Code Phon e Number [facility] [address] [place] [address] documented in this encounter Visit Diagnoses Diagnosis Left groin mass - Primary Type 2 diabetes mellitus with other spec ified complication, without long-term current use of insulin (HCC) Discoloration of skin of finger documented in this encounter Care Teams Urologist Physician Relationship Specialty Start Date End Date Adriane Patel APRN, LEONARD PCP - General 09/22/17 07/06/19 [address] [place] [address] documented as of this encounter
--- OUTSIDE RECORDS SUMMARY | 2021-10-24 10:46 | XMS_ITS | Encounter Summary ---
:1945 Author Organization [facility] Address [address] [place] [address] Care Team Providers Name Role Phone Adriane Patel Roank DIPLOMATIC OFFICER, BLASTING MACHINE OPERATOR Primary Care Provider [phone] Encounter Details Date Type Department Care Team Description 04/22/2018 Lab [place] Type 2 diabetes mellitus wit h complication, without long-term current use of insulin (HCC); [address] Dyspnea on exertion; [place], [place] [address] Subclinical hypothyroidism; [phone] Type 2 diabetes mellitus with other specified [...] Resu lts for this FILTRATION RATE AM WORKERS COMPENSATION SPECIALIST procedure ar e in the results section. CBC BRANCH OFFICE Routine 04/22/2018 10:33 Dyspnea on exertion Results for this W/DIFF AM WORKERS COMPENSATION SPECIALIST procedure are i n the results section. TROPONIN I Routine 04/22/2018 10:33 Dyspnea on exertion Resu lts for this AM WORKERS COMPENSATION SPECIALIST procedure are i n the results section. TSH Routine 04/22/2018 10:33 Subclinical Results for this AM WORKERS COMPENSATION SPECIALIST hypothyroidism procedure are in the results section. HEMOGLOBIN A1C Routine 04/22/2018 10:33 Type 2 diabetes Result s for this AM WORKERS COMPENSATION SPECIALIST mellitus with other procedur e are in specified the results complication, without sectio n. long-term current use of insulin (HCC) BASIC METABOLIC Routine 04/22/2018 10:33 Dyspnea on exertion R esults for this PANEL AM WORKERS COMPENSATION SPECIALIST procedure are i n the results section. documented in this encounter Results (ABNORMAL) Glomerular filtration rate (GFR) (04/22/2018 10:33 AM WORKERS COMPENSATION SPECIALIST) athologist Signature GFR 49 (A) 04/22/2018 [facility] 12:40 PM [facility] 59 (A) 04/22/2018 [facility] Liberian GFR 12:40 PM [facility] Comment: GFR calculated from serum creatinine v alue Chronic Kidney Disease less than 60 mL/m in/1.73 m2 Kidney Failure less than 15 mL/min/1.73 m2 Note: effective 07/01/06 IDMS-Traceable MDRD Study Equation used. Specimen Anatomical Collection Method Collection Time Receive d Time (Source) Location / / Volume Laterality 04/22/2018 10:33 04/22/2018 AM WORKERS COMPENSATION SPECIALIST 10:33 AM WORKERS COMPENSATION SPECIALIST Adriane Patel APRN, BLASTING MACHINE OPERATOR LAB BLOOD ORDERABLES Performing Organization Address City/State/ZIP Code Phon e Number [facility] [address] [place] [phone] (ABNORMAL) Hemoglobin A1c (04/22/2018 10:33 AM WORKERS COMPENSATION SPECIALIST) Analysis Performed At Patho logist Time Signature Hemoglobin A1C 9.0 (H) 4.0 - 5.6 04/22/2018 [place] % A1C 7:27 PM [facility] Comment: [...] (Blood, 04/22/2018 10:33 04/22/2018 6:52 Venous) AM WORKERS COMPENSATION SPECIALIST PM WORKERS COMPENSATION SPECIALIST Adriane Patel APRN, CNP LAB BLOOD ORDERABLES Performing Organization Address [facility] Code Phon e Number [facility] [address] [place] [phone] TSH (04/22/2018 10:33 AM WORKERS COMPENSATION SPECIALIST) athologist Signature TSH, Sensitive 2.05 0.46 - 04/22/2018 [facility] 4.68 mIU/L 8:41 PM WORKERS COMPENSATION SPECIALIST [facility] Comment: The results from this [...] (Blood, 04/22/2018 10:33 04/22/2018 6:52 Venous) AM WORKERS COMPENSATION SPECIALIST PM WORKERS COMPENSATION SPECIALIST Adriane Patel APRN, CNP LAB BLOOD ORDERABLES Performing Organization Address [facility] Phon e Number [facility] [address] [place] [address] (ABNORMAL) CBC Branch Off w/Diff (04/22/2018 10:33 AM WORKERS COMPENSATION SPECIALIST) [facility] Method Time Signature WBC 7.3 3.5 - 10.5 04/22/2018 [facility] K/uL 12:43 PM WORKERS COMPENSATION SPECIALIST [place] RBC 3.72 (L) 3.90 - 04/22/2018 [facility] 5.00 M/uL 12:43 PM WORKERS COMPENSATION SPECIALIST [place] Hemoglobin 11.0 (L) 12.0 - 04/22/2018 [facility] 15.5 g/dL 12:43 PM WORKERS COMPENSATION SPECIALIST [place] Hematocrit 33.7 (L) 35.0 - 04/22/2018 [facility] 44.0 % 12:43 PM WORKERS COMPENSATION SPECIALIST [place] Platelets 196 150 - 450 04/22/2018 [facility] K/uL 12:43 PM WORKERS COMPENSATION SPECIALIST [place] MCV 90.6 81.6 - 04/22/2018 [facility] 98.3 fL 12:43 PM WORKERS COMPENSATION SPECIALIST [place] MCH 29.6 26.0 - 04/22/2018 [facility] 32.0 pg 12:43 PM WORKERS COMPENSATION SPECIALIST [place] MCHC 32.6 32.0 - 04/22/2018 [facility] 36.0 g/dL 12:43 PM WORKERS COMPENSATION SPECIALIST [place] RDW 12.9 11.9 - 04/22/2018 [facility] 15.5 % 12:43 PM WORKERS COMPENSATION SPECIALIST [place] Lymphocytes % 14.7 (L) 18.0 - 04/22/2018 [facility] 45.0 % 12:43 PM WORKERS COMPENSATION SPECIALIST [place] Mid-size Cells 10.4 (H) 3.3 - 10.1 04/22/2018 [facility] % 12:43 PM WORKERS COMPENSATION SPECIALIST [place] Granulocytes/Jean Claude 74.9 (H) 45.8 - 04/22/2018 [facility] trophils 73.7 % 12:43 PM WORKERS COMPENSATION SPECIALIST [place] Lymphocytes 1.1 0.9 - 2.9 04/22/2018 [facility] Absolute K/uL 12:43 PM WORKERS COMPENSATION SPECIALIST [place] MIDS Absolute 0.8 0.2 - 0.8 04/22/2018 [facility] K/uL 12:43 PM WORKERS COMPENSATION SPECIALIST [place] Granulocytes/Jean Claude 5.4 2.1 - 8.7 04/22/2018 [facility] trophils K/uL 12:43 PM WORKERS COMPENSATION SPECIALIST [place] Absolute Specimen Anatomical Collection Method Collection Time Receive d Time (Source) Location / / Volume Laterality Blood (Blood, 04/22/2018 10:33 04/22/2018 Venous) AM WORKERS COMPENSATION SPECIALIST 12:38 PM WORKERS COMPENSATION SPECIALIST Adriane Patel APRN, BLASTING MACHINE OPERATOR LAB BLOOD ORDERABLES Performing Organization Address City/State/ZIP Code Phon e Number [facility] [address] [place] [address] (ABNORMAL) Basic metabolic panel (04/22/2018 10:33 AM WORKERS COMPENSATION SPECIALIST) P athologist Signature Sodium 141 135 - 145 04/22/2018 [facility] mmol/L 12:40 PM WORKERS COMPENSATION SPECIALIST [place] Potassium 3.5 3.5 - 5.1 04/22/2018 [facility] mmol/L 12:40 PM WORKERS COMPENSATION SPECIALIST [place] Comment: . Chloride 108 (H) 98 - 107 mmol/L 04/22/2018 12:40 PM WORKERS COMPENSATION SPECIALIST [facility] [place] Comment: . CO2 28 22 - 29 mmol/L 04/22/2018 12:40 PM WORKERS COMPENSATION SPECIALIST [facility] [place] Comment: . Creatinine 1.1 0.4 - 1.2 mg/dL 04/22/2018 12:40 PM WORKERS COMPENSATION SPECIALIST [facility] [place] Comment: . BUN 20 5 - 25 mg/dL 04/22/2018 12:40 PM WORKERS COMPENSATION SPECIALIST [facility] [place] Comment: . Glucose 204 (H) 70 - 100 mg/dL 04/22/2018 12:40 PM [facility] [place] WORKERS COMPENSATION SPECIALIST Calcium, Total,S 9.4 8.4 - 10.2 mg/dL 04/22/2018 12:40 PM [facility] [place] WORKERS COMPENSATION SPECIALIST Comment: . Fasting? No 04/22/2018 12:38 PM WORKERS COMPENSATION SPECIALIST [facility] [place] Comment: 1+ lipemic Specimen Anatomical Collection Method Collection Time Receive d Time (Source) Location / / Volume Laterality Blood (Blood, 04/22/2018 10:33 04/22/2018 Venous) AM WORKERS COMPENSATION SPECIALIST 12:38 PM WORKERS COMPENSATION SPECIALIST Adriane Patel APRN, BLASTING MACHINE OPERATOR LAB BLOOD ORDERABLES Performing Organization Address City/State/ZIP Code Phon e Number [facility] [address] [place] [address] Troponin I (04/22/2018 10:33 AM WORKERS COMPENSATION SPECIALIST) P athologist Signature Troponin I <0.012 0.012 - 04/22/2018 [facility] 0.034 ng/mL 7:24 PM WORKERS COMPENSATION SPECIALIST [facility] Comment: Note Reference Value [...] (Blood, 04/22/2018 10:33 04/22/2018 6:52 Venous) AM WORKERS COMPENSATION SPECIALIST PM WORKERS COMPENSATION SPECIALIST Adriane Patel APRN, BLASTING MACHINE OPERATOR LAB BLOOD ORDERABLES Performing Organization Address City/State/ZIP Code Phon e Number [facility] [address] [place] [address] documented in this encounter Visit Diagnoses Diagnosis Type 2 diabetes mellitus with other spec ified complication, without long-term current use of insulin (HCC) Dyspnea on exertion Other dyspnea and respiratory abnormalit y Subclinical hypothyroidism Other specified acquired hypothyroidism documented in this encounter Care Teams Medical Superintendent Relationship Specialty Start Date End Date Adriane Patel, DIPLOMATIC OFFICER, BLASTING MACHINE OPERATOR PCP - General 09/22/17 07/06/19 100 [facility] [place] [address] documented as of this encounter
--- OUTSIDE RECORDS SUMMARY | 2021-10-24 10:46 | XMS_ITS | Encounter Summary ---
:1945 Author Organization [facility] Address [address] [place] [address] Care Team Providers Name Role Phone Adriane Patel Ronak LUBRICATING SPECIALIST, SALES DEPARTMENT SUPERVISOR Primary Care Provider [phone] Encounter Details Date Type Department Care Team Description 12/23/2017 Orders Only SE Cardiology [place], Coronary artery disease [address] [facility] MD Azucena [place] [address] angina pectoris, unspecified ves judith or lesion type, un specified whether menominee or transplanted he art (HCC) (Primary Dx) [...] unspecified vessel or lesion type, unspecified whether menominee or transplanted heart (HCC) - Primary documented in this encounter Care Teams Polysilicon Preparation Worker Relationship Specialty Start Date End Date Adriane Patel APRN, SALES DEPARTMENT SUPERVISOR PCP - General 09/22/17 07/06/19 100 [facility] [place] [address] documented as of this encounter
--- OUTSIDE RECORDS SUMMARY | 2021-10-24 10:46 | XMS_ITS | Encounter Summary ---
:1945 Author Organization [facility] Address [address] [place] [address] Care Team Providers Name Role Phone Adriane Patel DIGITAL ACCOUNT DIRECTOR, RETORT PRE COOKER Primary Care Provider [phone] Reason for Visit Reason Onset Date Comments Med Refill 02/17/2018 Encounter Details Date Type Department Care Team Description 02/17/2018 Refill [place] Adriane Patel, MAL, [address] [place], [place] [address] [phone] [place], [place] [address] Social History Tobacco Use [...] Notes Telephone Encounter - Adriane Patel APRN, RETORT PRE COOKER - 02/18/2018 8:05 AM CLEAN RICE GRADER AND REEL TENDER Will review the patient's medications during the clinical visit tomorrow, and then order her medications. N RICE GRADER AND REEL TENDER Telephone Encounter - Ana Cristina Prado MA - 02/17/2018 2:59 PM CST I have pended a medication refill for your review. N RICE GRADER AND REEL TENDER documented in this encounter Plan of Treatment Not on filedocumented as of this encounter Visit Diagnoses Not on filedocumented in this encounter Care Teams Technical Publications Writer Relationship Specialty Start Date End Date Adriane Patel APRN, CNP PCP - General 09/22/17 07/06/19 100 [place] [address] documented as of this encounter
--- OUTSIDE RECORDS SUMMARY | 2021-10-24 10:47 | XMS_ITS | Encounter Summary ---
:1945 Author Organization [facility] Address [address] [place] [address] Care Team Providers Name Role Phone Adriane Patel Ronak RETAIL SUPPORT MANAGER, EMAIL MARKETING INTERN Primary Care Provider [phone] Reason for Visit Reason Comments Diarrhea Encounter Details Date Type Department Care Team Description 11/30/2017 Office Visit [place] Fernándezine Diarrhea, unspecified type ( Primary Dx); [address] M, LEONARD RESENDEZ Insomnia, unspecified type; [place], [place] [address] Shakes; [address] [place] [address] Vitamin D deficiency; [phone] Hunger p ain, initial encounter; Renal insuffici [...] vitamin C 500 mg tablet in the yetu vitamins [facility] which she takes. ROS: GENERAL: No fever, no chills but at times she does feel cold, which she feels is from her rheumatoidarthritis. The patient has lost 10 pounds since her rheumatoid arthritis diagnosis, and correlates her weight loss with this diagnosis, and not her gastrointestinal symptoms. BREASTS: The patient reports she did have a mammogram in [place] in November, and does not know the results, as they had to obtain her previous films to compare before resulting. GASTROINTESTINAL: See HPI. The patient has a long-standing history of diarrhea, even recalls back [id number], or 2011, it was recommended she start [...] with an EGD and a colonoscopy at [place],for further evaluation of her hunger discomfort with [...] Signature H pylori Ag, NEGATIVE Negative 12/01/2017 [facility] 2:47 PM T [facility] Comment: H. pylori antigen is absent or below the level of detection. Specimen Anatomical Collection Method Collection Time Receive d Time (Source) Location / / Volume Laterality Stool (Per 12/01/2017 7:30 AM 8 Rectum) CDT 12:59 PM CDT Adriane Patle RETAIL SUPPORT MANAGER, EMAIL MARKETING INTERN LAB BODY FLUIDS AND STOOL S ORDERABLES Performing Organization Address City/State/ZIP Code Phon e Number [facility] [address] [place] [address] Vitamin D, Total (11/30/2017 12:38 PM CDT) athologist Signature Vitamin D, 48.7 ng/mL 12/01/2017 [facility] 2:18 PM CDT [facility] Comment: ---- Deficient ?<20 ? ng/mL [...] CDT 12:59 PM CDT Adriane Patel APRN, EMAIL MARKETING INTERN LAB BLOOD ORDERABLES Performing Organization Address City/State/ZIP Code Phon e Number [facility] [address] [place] [address] (ABNORMAL) Basic metabolic panel (11/30/2017 12:38 PM CDT) athologist Signature Sodium 139 135 - 145 11/30/2017 [facility] mmol/L 1:13 PM CDT [place] Potassium 3.6 3.5 - 5.1 11/30/2017 [facility] mmol/L 1:13 PM CDT [place] Comment: . Chloride 102 98 - 107 mmol/L 11/30/2017 1:13 PM CDT O [facility] [place] Comment: . CO2 30 (H) 22 - 29 mmol/L 11/30/2017 1:13 PM CDT OM C [facility] [place] Comment: . Creatinine 1.0 0.4 - 1.2 mg/dL 11/30/2017 1:13 PM CDT C [facility] [place] Comment: . BUN 20 5 - 25 mg/dL 11/30/2017 1:13 PM CDT [facility] [place] Comment: . Glucose 149 (H) 70 - 100 mg/dL 11/30/2017 1:13 PM CDT Deana CUELLAR Calcium, Total,S 9.7 8.4 - 10.2 mg/dL 11/30/2017 1:13 PM CDT [facility] Comment: . Fasting? No 11/30/2017 12:41 PM CDT [facility] [place] CUELLAR Specimen Anatomical Collection Method Collection Time Receive d Time (Source) Location / / Volume Laterality Blood (Blood, 11/30/2017 12:38 11/30/2017 Venous) PM CDT 12:38 PM CDT Adriane Patel APRN, EMAIL MARKETING INTERN LAB BLOOD ORDERABLES Performing Organization Address City/State/ZIP Code Phon e Number [facility] [address] [place] [address] documented in this encounter Visit Diagnoses Diagnosis Diarrhea, unspecified type - Primary Insomnia, unspecified type Shakes Abnormal involuntary movements Vitamin D deficiency Hunger pain, initial encounter Renal insufficiency Unspecified disorder of kidney and urete r Anemia, unspecified type documented in this encounter Care Teams Electronic Field Service Engineer Relationship Specialty Start Date End Date Adriane Patel APRN, EMAIL MARKETING INTERN PCP - General 09/22/17 07/06/19 100 [facility] [place] [address] documented as of this encounter
--- OUTSIDE RECORDS SUMMARY | 2021-10-24 10:47 | XMS_ITS | Encounter Summary ---
:1945 Author Organization [facility] Address [address] [place] [address] Care Team Providers Name Role Phone Unavailable Primary Care Provider Unavailable Encounter Details Date Type Department Care Team Description 02/23/2017 Hospital Encounter [facility] Borders-Patel Dizzi ness and Radiology , DO felipe Harkins [address] [facility] [address] [place] [address] [place] [address] Social History Tobacco Use Types Packs/Day Years [...] BRAIN W WO Routine 02/23/2017 1:16 PM Results for this CONTRAST ADMINISTRATIVE RECEPTIONIST procedure are i n the results section. documented in this encounter Results MRI head w and wo IV contrast (02/23/2017 1:16 PM ADMINISTRATIVE RECEPTIONIST) Anatomical Region Laterality Modality Head and Neck Magnetic Resonance Specimen (Source) Anatomical Collection Method Collection Time Re ceived Time Location / / Volume Laterality 02/23/2017 1:16 PM ADMINISTRATIVE RECEPTIONIST Impressions 02/23/2017 2:48 PM ADMINISTRATIVE RECEPTIONIST Impression: 1. There is no evidence of acute infarct ion, intracranial hemorrhage or mass lesion. 2. MRI brain is normal for age. 3. Inflammatory paranasal sinus changes most prominent in the sphenoid sinus. Dictated by Gregorio Mccabe MD @ Feb ??8 ??2:28PM Signed by Dr. Gregorio Mccabe @ [place] ??2017 ??2:48PM Narrative 02/23/2017 2:48 PM ADMINISTRATIVE RECEPTIONIST Indication: 71-year-old female with vertigo. Technique: Sagittal [...] cells are clear. Procedure Note Gregorio Mccabe W - 11/08/2017 Indication: 71-year-old female with vertigo. Technique: Sagittal T1, axial FLAIR, T2, diffusion weighted, susceptibility weighted and gadolinium-enhanced sagitta l axial and coronal T1 weighted images. Findings: The lateral 3rd and 4th ventricles jammie l in size and shape. No evidence of acute ischemic infarction. N o evidence of intracranial hemorrhage. No sarah ventricular white ma tter lesions to suggest demyelinating disease few punctate foci of FLAIR and T2 hyperintensity within the subcortical wh ite matter are nonspecific but typical of age-related chronic micro vascular ischemia. Brainstem and cerebellum appear normal. There are no enhancing intra-axial or extra-axial lesions. Fluid levels within the sphenoid and right maxillary sinuses with enhancing sphenoi d sinus szymanski suggesting acute inflammation. There is also inflam matory opacification of the right para midline frontal [...] Dr. Gregorio Mccabe @ Feb 23 2017 2 :48PM Shahana BRUNNERG MRI PROCEDURES documented in this encounter Visit Diagnoses Diagnosis Dizziness and giddiness documented in this encounter
--- OUTSIDE RECORDS SUMMARY | 2021-10-24 10:47 | XMS_ITS | Encounter Summary ---
:1945 Author Organization [facility] Address [address] [place] [address] Care Team Providers Name Role Phone Adriane Patel HUMAN GEOGRAPHY FACULTY MEMBER, CONTRACT IMPLEMENTATION ANALYST Primary Care Provider [phone] Encounter Details Date Type Department Care Team Description 11/13/2017 Orders Only [place] Adriane Patel, [address] HUMAN GEOGRAPHY FACULTY MEMBER, CONTRACT IMPLEMENTATION ANALYST [place] MD [address] [phone] [place], [place] [address] Social History Tobacco Use [...] Procedure Name Priority Date/Time Associated Comments Diagnosis ECHOCARDIOGRAM 2D Routine 12/24/2017 12:26 Result s for this COMPLETE WITH SPEC AND PM [facility]TE[facility]ATION proce ines are in COLOR FORM DOPPLER the resul ts section. documented in this encounter Results Echocardiogram 2D complete with spec and color form doppler (12/24/2017 12:26 PM VP INTEGRATION) Anatomical Region Laterality Modality Ultrasound Specimen (Source) Anatomical Collection Method Collection Time Re ceived Time Location / / Volume Laterality 12/24/2017 12:26 PM [facility] Narrative This result has an attachment that is no t available. Adriane Patel APRN, CNP CV ECHO PROCEDURES documented in this encounter Visit Diagnoses Not on filedocumented in this encounter Care Teams Shuttle Operator Relationship Specialty Start Date End Date Adriane Patel APRN, CONTRACT IMPLEMENTATION ANALYST PCP - General 09/22/17 07/06/19 100 [place] [address] documented as of this encounter
--- OUTSIDE RECORDS SUMMARY | 2021-10-24 10:47 | XMS_ITS | Encounter Summary ---
:[address] [facility] Address [address] [place] [address] Care Team Providers Name Role Phone Adriane aPtel POLITICAL SCIENCE FACULTY MEMBER, METALLURGICAL INSPECTOR Primary Care Provider [phone] Reason for Referral Cardiac (Routine) - Closed Specialty Diagnoses / Procedures Referred By Contact Refer red To Contact Cardiology Diagnoses Localized edema Dyspnea on exertion Coronary artery disease, angina presence unspecified, unspecified vessel or lesion type, unspecified whether [place] or transplanted heart Adriane Patel, Cardiology Procedures Echocardiogram 2D complete with spec and color form doppler LEONARD RESENDEZ [address] [facility] [address] [place] [address] [place] [address] Fax: Referral ID Status Reason Start Date Expiration Date Visits Requ ested Visits Authorized [id number] Closed 11/13/2017 05/12/2018 1 1 Encounter Details Date Type Department Care Team Description 11/13/2017 Orders Only [place] Adriane Patel Localized edema (Primary Dx) ; [address] M, LEONARD RESENDEZ Dyspnea on exertion; [place], [place] 100 [facility] Coronary artery disease, angina presence unspecified, unspecified vessel or lesion type, unspecified whether [place] or transplanted heart [address] [place] [address] [phone] Social History Tobacco Use Types Packs/Day Years [...] 12/23/2018 organizations such as islam groups, unions, [employer] or athletic groups, or school groups? How [...] unspecified vessel or lesion type, unspecified whether [place] or transplanted heart documented as of this encounter Visit Diagnoses Diagnosis Localized edema - Primary Edema Dyspnea on exertion Other dyspnea and respiratory abnormalit y Coronary artery disease, angina presence unspecified, unspecified vessel or lesion type, unspecified whether [place] or crystal splanted heart documented in this encounter Care Teams Marine Service Station Attendant Relationship Specialty Start Date End Date Adriane Patel APRN, METALLURGICAL INSPECTOR PCP - General 09/22/17 07/06/19 100 [place] [address] documented as of this encounter
--- OUTSIDE RECORDS SUMMARY | 2021-10-24 10:47 | XMS_ITS | Encounter Summary ---
:1945 Author Organization [facility] Address [address] [place] [address] Care Team Providers Name Role Phone Unavailable Primary Care Provider Unavailable Encounter Details Date Type Department Care Team Description 11/18/2013 Hospital Encounter [facility] Ifeoma Quigley opausal bleeding Radiology [address] [place] [address] Social History Tobacco Use Types [...] Diagnosis US PELVIS INCLUDING Routine 11/18/2013 9:19 AM Re sults for this TRANSVAGINAL CDT procedure are i n the results [...] 2 mm. Both ovaries are not visualized. T here is no pelvic free fluid or adnexal mass. Cervical nabothia n cysts are present. Impression 2 mm endometrium. Ifeoma ZIMMERMAN US PROCEDURES documented in this encounter Visit Diagnoses Diagnosis Postmenopausal bleeding documented in this encounter
--- OUTSIDE RECORDS SUMMARY | 2021-10-24 10:47 | XMS_ITS | Encounter Summary ---
:1945 Author Organization [facility] Address [address] [place] [address] Care Team Providers Name Role Phone Adriane Patel Ronak PRESS WORKER HELPER, DATA WAREHOUSE DEVELOPER Primary Care Provider Encounter Details Date Type Department Care Team Description 11/30/2017 Lab [place] Vitamin D deficiency; [address] Renal insufficiency [place], [place] [address] Social History Tobacco Use [...] filtration rate (GFR) (11/30/2017 12:38 PM CDT) athologist Signature GFR 54 (A) 11/30/2017 [facility] 1:13 PM CDT [facility] >60 11/30/2017 [facility] [place] GFR 1:13 PM CDT [facility] Comment: [...] CDT 12:38 PM CDT Adriane Patel APRN, DATA WAREHOUSE DEVELOPER LAB BLOOD ORDERABLES Performing Organization Address City/State/ZIP Code Phon e Number [facility] [address] [place] [address] (ABNORMAL) Basic metabolic panel (11/30/2017 12:38 PM CDT) athologist Signature Sodium 139 135 - 145 11/30/2017 [facility] mmol/L 1:13 PM CDT [place] Potassium 3.6 3.5 - 5.1 11/30/2017 [facility] mmol/L 1:13 PM CDT [place] Comment: . Chloride 102 98 - 107 mmol/L 11/30/2017 1:13 PM CDT [facility] [place] Comment: . CO2 30 (H) 22 - 29 mmol/L 11/30/2017 1:13 PM CDT [facility] [place] Comment: . Creatinine 1.0 0.4 - 1.2 mg/dL 11/30/2017 1:13 PM CDT [facility] [place] Comment: . BUN 20 5 - 25 mg/dL 11/30/2017 1:13 PM CDT [facility] [place] Comment: . Glucose 149 (H) 70 - 100 mg/dL 11/30/2017 1:13 PM CDT [facility] [place] Calcium, Total,S 9.7 8.4 - 10.2 mg/dL 11/30/2017 1:13 PM CDT [facility] [place] Comment: . Fasting? No 11/30/2017 12:41 PM CDT [facility] [place] Specimen Anatomical Collection Method Collection Time Receive d Time (Source) Location / / Volume Laterality Blood (Blood, 11/30/2017 12:38 11/30/2017 Venous) PM CDT 12:38 PM CDT Adriane Patel APRN, LEONARD LAB BLOOD ORDERABLES Performing Organization Address City/[facility]/ZIP Code Phon e Number [facility] [place] [address] [place] [address] Vitamin D, Total (11/30/2017 12:38 PM CDT) P athologist Signature Vitamin D, 48.7 ng/mL 12/01/2017 [...] CDT 12:59 PM CDT Adriane Patel APRN, CNP LAB BLOOD ORDERABLES Performing Organization Address City/[facility]/ZIP Code Phon e Number [facility] [address] [place] [address] documented in this encounter Visit Diagnoses Diagnosis Vitamin D deficiency Renal insufficiency Unspecified disorder of kidney and urete r documented in this encounter Care Teams Water Resource Consultant Relationship Specialty Start Date End Date Adriane Patel APRN, DATA WAREHOUSE DEVELOPER PCP - General 09/22/17 07/06/19 100 [facility] [place], [place] [address] documented as of this encounter
[2021-10-24 13:52] LABS: Basophils Absolute Auto 0.04 K/uL (0.00-0.30); Basophils Percent Auto 0.6 % (0.0-3.0); Eosinophils Absolute Auto 0.29 K/uL (0.00-0.50); Eosinophils Percent Auto 4.2 % (0.0-7.0); Hematocrit 32.7 % (33.0-51.0); Hemoglobin* 10.2 gm/dL (12.0-16.0); Immature Granulocytes Abs Auto 0.02 K/uL (0.00-0.30); Lymphocytes Percent Auto 17.6 % (20-44); Mean Corpuscular HGB Conc 31 gm/dL (32-36); Mean Corpuscular Hemoglobin 30 pg (26-34); Mean Corpuscular Volume 95 fL (80-100); Monocytes Percent Auto 7.3 % (0.0-11.0); Neutrophils Absolute Auto 4.87 K/uL (1.7-7.0); Platelet Count* 218 K/uL (140-440); RDW Coefficient of Variation % 14.8 % (11.5-15.5); Red Blood Count 3.43 m/uL (4.00-5.20); White Blood Count* 6.95 K/uL (4.50-11.00)
[2021-10-24 14:01] LABS: Slide Review Reflex No
[2021-10-24 14:05] LABS: D Dimer Quantitative* 0.76 ug/ml (0.00-0.50)
[2021-10-24 14:21] LABS: Troponin I* < 0.01 ng/mL (0.01-0.04)
== END 2021-10-24 10:19 | disposition home or self-care (01) ==
LOC: KYNREF 10:23
PROVIDERS: PCP Nurse Practitioner Family; Visit Provider Nurse Practitioner Family
DX: R07.9 Chest pain, unspecified (principal); M79.609 Pain in unspecified limb
CPT/HCPCS: 36415; 71260; 82565; 84484; 85025; 85379; 93970; Q9967

== ENCOUNTER 2021-12-10 14:28 | Outpatient (CLI) | payer MEDICARE, BC, SELFPAY ==
--- NOTE | 2021-12-10 14:40 | CRLHL7_ITS ---
For Patients: As a result of the Cures Act, medical imaging exams and procedure reports are released immediately into your electronic medical record. You may view this report before your referring provider. If you have questions, please contact your health care provider. BILATERAL SCREENING MAMMOGRAM WITH COMPUTER-AIDED DETECTION AND TOMOSYNTHESIS TECHNIQUE: CC and MLO views were obtained. These mammographic images have been obtained using full-field digital technique. These mammographic images were interpreted with the benefit of computer-aided detection. Breast Tomosynthesis was used in this interpretation. COMPARISON FILM: 12/03/2020, 12/02/2019, 11/30/2018. FINDINGS: There are scattered areas of fibroglandular density IMPRESSION: There is no radiographic evidence for malignancy. ASSESSMENT: BI-RADS Category 1: Negative RECOMMENDATION: Routine screening mammogram in 1 year. A lay language report of this examination will be provided to the patient. Carl Herbert M.D. Diagnostic Radiologist [email or web address] Transcribed: 7:51 p.m. BRITTANY/Dictated by: Carl Herbert MD @ 12/11/2021 12:37:00 PM (Electronically Signed)
--- OUTSIDE RECORDS SUMMARY | 2021-12-10 15:03 | XMS_ITS | Clinical Summary ---
:1945 Author Organization [facility] [place] [address] Care Team Providers Name Role Phone Lincoln [...] Describe In 03/19/2010 Unknown reaction Comment Field [id number]-Awb-Iqv Other - Describe In 01/05/2019 Intol erance [...] long- term current use of 03/13/2021 insulin Encounters Date Type Specialty Care Team Description 12/09/2021 Travel 12/09/2021 Nurse Triage LabGreg parker MD Ches t Pain 12/09/2021 Telephone Trevor Marc MD Err or-please disregard from Last 3 Months Immunizations Name Administration Dates Next Due Influenza, [...] Exposure Response Date Recorded In the last 10 days, have you been in contact with No / Unsu re 12/09/2021 9:02 AM CDT someone who was confirmed or suspected to have Coronavirus/COVID-19? Obstetrics History Last Filed Vital Signs Vital Sign Reading Time Taken Comments Blood Pressure 144/79 03/13/2021 11:51 AM MORTGAGE LENDER Pulse 77 03/13/2021 11:51 AM MORTGAGE LENDER Temperature 36.6 ??C (97.8 ??F) 03/13/2021 11:51 AM MORTGAGE LENDER Respiratory Rate - - Oxygen Saturation 98% 03/13/2021 11:51 AM MORTGAGE LENDER Inhaled Oxygen Concentration - - Weight 81.8 kg (180 lb 6.4 oz) 03/13/2021 11:51 AM MORTGAGE LENDER Height 157.6 cm (5' 2.05) 03/13/2021 11:51 AM MORTGAGE LENDER Body Mass Index 32.95 03/13/2021 11:51 AM MORTGAGE LENDER Plan of Treatment Upcoming Encounters Date Type Specialty Care Team Description 12/16/2021 Office Visit Greg Flynn MD [address] [place], [place] [address] (Wo rk) Health Maintenance Due Date Last Done Comments Depression screening for age 12+ 1957 Hepatitis C screening for age 18-79 06/05/1963 DEXA/DXA scan for age 65+ 2010 Medicare Wellness for age 65+ 2010 Zoster (shingles) series for age 50+ 11/15/2015 09/20/2015, 08/28/2015 (2 of 3) COVID-19 vaccine series (4 - Booster 02/12/2021 12/18/2020, 05/15/2020, for Pfizer series) 04/20/2020 Influenza for age 65+ 10/17/2021 11/09/2020 BMI (ht and wt on same day) for age 0103/13/2022 03/13/2021 18+ Tetanus booster 08/15/2029 08/16/2019, 02/14/2010 Tdap Completed 02/14/2010 Pneumococcal series for age 65+ Completed 08/16/2019, 05/0 07/2014, 01/28/2008 Results Not on filefrom Last 3 Months Insurance Payer Benefit Plan / Subscriber ID Effective Dates Phone Addre ss Type Group [employer] MR MARCELA NOLEN [id number] 2016-Present [address] [address] [place] [phone] Care Teams Command Post Superintendent Relationship Specialty Start Date End Date Lincoln Vazquez PCP - General 10/22/[address] [place] [address]
--- OUTSIDE RECORDS SUMMARY | 2021-12-10 15:04 | XMS_ITS | Encounter Summary ---
:1945 Author Organization [facility] Address [address] [place] [address] Care Team Providers Name Role Phone Unavailable Primary Care Provider Unavailable Reason for Referral Physical Therapy (Routine) - Authorized Specialty Diagnoses / Procedures Referred By Contact Refer red To Contact Diagnoses Imbalance Non Orthopedic Adriane Patel, C.N.P. [facility] Procedures PT Ongoing treatment [address] [place], [place] [address] Referral ID Status Reason Start Date Expiration Date Visits V isits Requested Authorized [id number] Authorized 07/23/2021 07/23/2022 99 99 Reason for Visit Appointment Request (Routine) - Closed Specialty Diagnoses / Procedures Referred By Contact Refer red To Contact Physical Therapy Diagnoses Vertigo Benign Paroxysmal Positional Adriane Patel, C.N.P. [address] [place], [place] [address] Referral ID Status Reason Start Date Expiration Date Visits Requ ested Visits Authorized [id number] Closed 07/05/2021 07/05/2022 1 1 Encounter Details Date Type Department Care Team Description 07/17/2021 Comprehensive Visit Department of Elizabeth Patel C.N.P. [address] [place] [address] Imbalance Non Rehabilitation Rogers Alva, P.T. [address] [place] [address] Orthopedic Services in [address] [phone] Social History Tobacco Use Types Packs/Day Years [...] drinks on one occasion? No t asked Sex Assigned at Date Recorded Not on file documented as of this encounter Consult Notes Rogers Alva PJairoT. - 07/17/2021 10:45 AM CDT Consults Physical [...] AND B / Product Type: Medicare / Dataupia Visit Count: 1 PERTINENT MEDICAL / SURGICAL [...] of motion is within normal limits. Hallpike [place] test was positive for right posterior canal [...] documented in this encounter Plan of Treatment Upcoming Encounters Date Type Specialty Care Team Description 12/26/2021 Office Visit Cardiovascular Disease Maritza Currie M.D. [address] [place] [phone] ([place]) 01/16/2022 Appointment Radiology Vignesh Currie M.D. [address] [place] [phone] ([place]) 01/16/2022 Appointment Cardiovascular Disease Maritza Currie M.D. [address] [place] [phone] ([place]) 01/16/2022 Appointment Radiology Vignesh Currie M.D. [address] [place] [phone] ([place]) 01/16/2022 Appointment Cardiovascular Disease Maritza Currie M.D. [address] [place] [phone] ([place]) documented as of this encounter Visit Diagnoses Diagnosis Imbalance Non Orthopedic documented in this encounter Additional Health Concerns Assessment Noted Time PHQ-9 Depression Total Score: 7 06/21/2014 9:20 AM CDT documented as of this encounter
--- OUTSIDE RECORDS SUMMARY | 2021-12-10 15:04 | XMS_ITS | Encounter Summary ---
:1945 Author Organization [facility] Address [address] [place] [address] Care Team Providers Name Role Phone Unavailable Primary Care Provider Unavailable Reason for Referral MRI/CAT/PET Scan (Routine) - Closed Specialty Diagnoses / Procedures Referred By Contact Refer red To Contact Radiology Diagnoses Coronary Stent Status Post Pain Chest Atypical Vignesh Currie M.D. [facility] Procedures CT Cardiac Angiogram with Coronary Arteries with IV Contrast CT Cardiac Angiogram with IV Contrast [address] [place] [phone] Referral ID Status Reason Start Date Expiration Date Visits Requ ested Visits Authorized [id number] Closed 07/25/2020 07/25/2021 1 1 Reason for Visit MRI/CAT/PET Scan (Routine) - Closed Specialty Diagnoses / Procedures Referred By Contact Refer red To Contact Radiology Diagnoses Coronary Stent Status Post Pain Chest Atypical Vignesh Currie M.D. [facility] Procedures CT Cardiac Angiogram with Coronary Arteries with IV Contrast CT Cardiac Angiogram with IV Contrast 200 [place], [place] [phone] Referral ID Status Reason Start Date Expiration Date Visits Requ ested Visits Authorized [id number] Closed 07/25/2020 07/25/2021 1 1 Encounter Details Date Type Department Care Team Description 08/01/2020 Hospital Encounter Department of Vignesh Currie Stent Status Post; Radiology, Son Lance M.D. Pain Chest Atypical Building, in [address] [place] [phone] [place] [phone] [place], [place] (Work) [phone] Social History Tobacco Use Types Packs/Day Years [...] 8 (eight) hours as needed for anxiety. BASAGLAR KWIKPEN U-100 19 units, in the [...] by mouth 0 tablet daily. levothyroxine (SYNTHROID, Take 25 mcg by 0 2018 LEVOTHROID) 75 mcg tablet mouth daily. amLODIPine (NORVASC) 5 mg Take 5 mg by mouth 0 11/13/2021 tablet daily. ASPIRIN ORAL Take 81 mg by mouth 0 03/02/2012 daily. Take with food for heart health. furosemide (LASIX) 20 mg Take 0.5 tablets 2 tablet 0 07/2512/09/2021 tablet (10 mg total) by mouth as directed. Take 0.5 tablet as needed for swelling. lisinopril Take 2.5 mg by 0 06/26/2021 (PRINIVIL,ZESTRIL) 2.5 mg mouth daily. tablet metFORMIN (GLUCOPHAGE) 500 Take 500 mg by 0 10/2706/26/2021 mg tablet mouth 2 (two) times a day. Taking only 1 tablet daily azkjmlwd-tnssgqdda-xedsfvf 0 9 06/26/2021 hasone (MAXITROL) 3.5mg/mL-10,000 unit/mL-0.1 [...] Visit Cardiovascular Disease Maritza Currie M.D. [address] [place] [phone] ([place]) 01/16/2022 Appointment Radiology Vignesh Currie M.D. [address] [place] [phone] ([place]) 01/16/2022 Appointment Cardiovascular Disease Maritza Currie M.D. [address] [place] [address] [phone] ([place]) 01/16/2022 Appointment Radiology Vignesh Currie M.D. [address] [place] [phone] ([place]) 01/16/2022 Appointment Cardiovascular Disease Maritza Currie M.D. [address] [place] [phone] ([place]) documented as of this encounter Procedures Procedure [...] Vulnerable plaque ? Procedure Note Noah Knutson M.B.B.S. MArmen - 07/17 EXAM: CT CARDIAC ANGIOGRAM WITH [...]
--- OUTSIDE RECORDS SUMMARY | 2021-12-10 15:04 | XMS_ITS | Encounter Summary ---
:1945 Author Organization [facility] Address [address] [place] [address] Care Team Providers Name Role Phone Unavailable Primary Care Provider Unavailable Reason for Referral Physical Therapy (Routine) - Authorized Specialty Diagnoses / Procedures Referred By Contact Refer red To Contact Diagnoses Imbalance Non Orthopedic Vignesh Currie M.D. [facility] Procedures PT Evaluate and treat [address] [place] [phone] Referral ID Status Reason Start Date Expiration Date Visits V isits Requested Authorized [id number] Authorized 07/05/2021 07/05/2022 99 99 Reason for Visit Reason Comments PT orders Encounter Details Date Type Department Care Team Description 07/03/2021 Clinical Communication Department of Vignesh Currie orders Cardiovascular Diseases Lee Lance in [facility] [address] [place] [address] [address] [place] [phone] Social History Tobacco Use Types Packs/Day Years [...] Routing: -Order and Lab requests go to 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 Please pend orders prior to routing to PCP/Provider ??? DOS/PASS are encouraged to pend orders prior to forwarding message documented in this encounter Plan of Treatment Upcoming Encounters Date Type Specialty Care Team Description 12/26/2021 Office Visit Cardiovascular Disease Maritza Currie M.D. [address] [place] [phone] ([place]) 01/16/2022 Appointment Radiology Vignesh Currie M.D. [address] [place] [phone] ([place]) 01/16/2022 Appointment Cardiovascular Disease Maritza Currie M.D. [address] [place] [phone] ([place]) 01/16/2022 Appointment Radiology Vignesh Currie M.D. [address] [place] [phone] ([place]) 01/16/2022 Appointment Cardiovascular Disease Maritza Currie M.D. [address] [place] [address] [phone] ([place]) documented as of this encounter Visit Diagnoses Diagnosis Imbalance Non Orthopedic - Primary documented in this encounter Additional Health Concerns Assessment Noted Time PHQ-9 Depression Total Score: 7 06/21/2014 9:20 AM CDT documented as of this encounter
--- OUTSIDE RECORDS SUMMARY | 2021-12-10 15:04 | XMS_ITS | Encounter Summary ---
:1945 Author Organization [facility] Address [address] [place] [address] Care Team Providers Name Role Phone Unavailable Primary Care Provider Unavailable Reason for Visit Reason Comments Med Refill Encounter Details Date Type Department Care Team Description 02/19/2021 Refill Department of Cardiovascular [facility] Vignesh bella M.D. Med Refill Diseases in [place], [place] [address] [facility] [address] [place] [address] [place] [address] [phone] Social History Tobacco Use Types Packs/Day Years [...] as of this encounter Plan of Treatment Upcoming Encounters Date Type Specialty Care Team Description 12/26/2021 Office Visit Cardiovascular Disease Maritza Currie M.D. [address] [place], [place] [phone] ([place]) 01/16/2022 Appointment Radiology Vignesh Currie M.D. [address] [place], [place] [phone] ([place]) 01/16/2022 Appointment Cardiovascular Disease Maritza Currie M.D. [address] [place], [place] [phone] (Wo rk) 01/16/2022 Appointment Radiology Vignesh Currie M.D. [address] [place], [place] [phone] (Wo rk) 01/16/2022 Appointment Cardiovascular Disease Maritza Currie M.D. [address] [place], [place] [phone] (Wo rk) documented as of this encounter Visit Diagnoses Not on filedocumented in this encounter Additional Health Concerns Assessment Noted Time PHQ-9 Depression Total Score: 7 06/21/2014 9:20 AM CDT documented as of this encounter
--- OUTSIDE RECORDS SUMMARY | 2021-12-10 15:04 | XMS_ITS | Encounter Summary ---
:1945 Author Organization [facility] Address [address] [place] [address] Care Team Providers Name Role Phone Unavailable Primary Care Provider Unavailable Reason for Referral Specialty Diagnoses / Procedures Referred By Contact Refer red To Contact [facility] [place] [facility] [address] [place] [phone] Referral ID Status Reason Start Date Expiration Date Visits Requ ested Visits Authorized ETICIAN Encounter Details Date Type Department Care Team Description 04/20/2020 Immunization Department of Yasmani Wells For COVID-19 Medicine, [place] Simons M.D. Vaccine Immunization Professional Building, [address] (Primary Dx) in [place], [place] [address] [facility] [address] [place] [address] Social History Tobacco Use Types Packs/Day [...] Visit Cardiovascular Disease Maritza Currie M.D. [address] [place] [phone] (Wo rk) 01/16/2022 Appointment Radiology Vignesh Currie M.D. [address] [place] [phone] (Wo rk) 01/16/2022 Appointment Cardiovascular Disease Maritza Currie M.D. [address] [place] [address] [phone] (Wo rk) 01/16/2022 Appointment Radiology Vignesh Currie M.D. [address] [place] [address] [phone] (Wo rk) 01/16/2022 Appointment Cardiovascular Disease Maritza Currie M.D. [address] [place] [address] [phone] (Wo rk) Scheduled Referrals Name Type Priority Associated Diagnoses [...]
--- OUTSIDE RECORDS SUMMARY | 2021-12-10 15:04 | XMS_ITS | Encounter Summary ---
:1945 Author Organization [facility] Address [address] [place] [address] Care Team Providers Name Role Phone Unavailable Primary Care Provider Unavailable Encounter Details Date Type Department Care Team Description 07/25/2020 Hospital Encounter Department of Vignesh Currie [facility] Heart Chronic Disease; Laboratory Medicine Tamia Lance. Diabetes Mellitus Type 2 (HCC) in [place] [phone] [facility] [phone] [place], [place] (Work) [phone] Social History Tobacco Use [...] a day. Taking only 1 tablet daily heubujeu-nxpjovlqt-zecqsgo 0 9 06/26/2021 hasone (MAXITROL) 3.5mg/mL-10,000 unit/mL-0.1 [...] Visit Cardiovascular Disease Maritza Currie M.D. [address] [place] [address] [phone] (Wo rk) 01/16/2022 Appointment Radiology Vignesh Currie M.D. [address] [place] [address] [phone] (Wo rk) 01/16/2022 Appointment Cardiovascular Disease Maritza Currie M.D. [address] [place] [address] [phone] (Wo rk) 01/16/2022 Appointment Radiology Vignesh Currie M.D. [address] [place] [address] [phone] (Wo rk) 01/16/2022 Appointment Cardiovascular Disease Maritza Currie M.D. [address] [place] [address] [phone] (Wo rk) documented as of this encounter Procedures Procedure [...] Organization Address City/State/ZIP Code Phon e Number [address] [id number] [place] [address] System [address] (ABNORMAL) Basic Metabolic Panel (07/25/2020 2:13 [...] eGFR-Black/Afri 39 (L) >=60 07/25/2020 [facility] can [place] mL/min/BSA 2:43 PM CDT Comment: ----ADDITIONAL INFORMATION---- Estimated GFR calculated using the 2009 CKD_EPI creatinine equation. eGFR Non-Black/ 34 (L) >=60 mL/min/BSA 07/25/2020 2:43 PM CDT [facility] [place] Comment: ----ADDITIONAL INFORMATION---- Estimated GFR calculated using [...] M.D. LAB BLOOD ADD-ON Performing Organization Address City/[facility] Phon e Number [address] [address] [place] [address] [address] (ABNORMAL) CBC without Differential (07/25/2020 2:13 PM CDT) [facility] gist Method Time Signature Hemoglobin [...] Laterality Blood (Blood, 07/25/2020 2:13 PM 07/26/19 21 2:17 Venous) CDT PM CDT Vignesh Currie M.D. LAB BLOOD ADD-ON Performing Organization Address City/[facility] Code Phon e Number [address] [address] [place] [address] System in [place] [address] documented in this encounter Visit Diagnoses Diagnosis Ischemic Heart Chronic Disease Diabetes Mellitus Type 2 (HCC) documented in this encounter Additional Health Concerns Assessment Noted Time PHQ-9 Depression Total Score: 7 06/21/2014 9:20 AM CDT documented as of this encounter
--- OUTSIDE RECORDS SUMMARY | 2021-12-10 15:04 | XMS_ITS | Clinical Summary ---
:1945 Author Organization [facility] Address [address] [place] [address] Care Team Providers Name Role Phone Unavailable Primary Care Provider Unavailable Source Comments Patient records contain information from all sites at [facility]. For routine questions regarding patient records, call [phone] during business hours, M-F 8:00 AM - 5:00 PM Central Time. Record requests for emergency care only can be directed to [phone] at any time.[facility] Allergies Active Allergy Reactions Severity Noted Date Comments Amlodipine Hypotension 02/22/2021 Atorvastatin Other (see comments) 07/04/2021 Azathioprine Other (see comments) 07/29/2018 Azithromycin Other (see comments) 03/19/2010 Unknown reaction Colchicine Other (see comments) 11/13/2021 Bad for kidneys Lisinopril Other (see comments) Medium 07/29/2018 nightma res Metoprolol Other (see comments) 06/19/2020 unknown Olmesartan Other (see comments) 03/19/2010 Unknown reaction Rosuvastatin Other (see comments) 07/04/2021 Tgchbrj-Zcz-Phw Other (see comments) 01/05/2019 Into lerance to Statin Reductase Inhibitors Medications Medication Sig Dispensed Refills Start Date End Date Status glipiZIDE Take 10 mg by 0 07/03/2016 Activ e (for_GLUCOTROL) 5 mouth every mg tablet morning before breakfast. ALPRAZolam (XANAX) Take 1 tablet 0 04/05/2015 Active 0.5 mg tablet by mouth every 8 (eight) hours as needed for anxiety. ergocalciferol Take 50,000 0 Act marty (DRISDOL) 50,000 Units by mouth Unit capsule once a week. leflunomide (ARAVA) Take 20 mg by 0 Active 20 mg tablet mouth daily. ferrous gluconate Take 38 mg by 0 Active (FERGON) 324 mg (38 mouth daily. mg iron) tablet blood sugar 0 06/30/2018 Active diagnostic (Accu-Chek Alison Plus test strp) strips clindamycin 0 07/15/2018 Active (CLINDAGEL) 1 % gel BASAGLAR KWIKPEN 19 units, in 0 07/17/2018 Active U-100 INSULIN 100 the AM unit/mL (3 mL) injection levothyroxine Take 25 mcg by 0 06/23/2018 Active (SYNTHROID, mouth daily. LEVOTHROID) 75 mcg tablet calcium Chew. 0 Active carbonate-vitamin D3 600 mg-10 mcg (400 unit) tablet,chewable abatacept in NaCl Infuse into a 0 Active 0.9% IVPB venous catheter. dapagliflozin Take 1 tablet 30 tablet 11 12/15/2019 A ctive (FARXIGA) 5 mg (5 mg total) tablet by mouth daily. nitroglycerin PLACE 1 TABLET 25 tablet 3 02/20/2021 Active (NITROSTAT) 0.4 mg UNDER THE SL tablet TONGUE EVERY 5 MINUTES IF NEEDED FOR UP TO 3 TIMES, IF NO RELIEF CALL 911 metFORMIN Take 1 tablet 90 tablet 3 06/26/2021 06/27/19 Activ e (GLUCOPHAGE) 500 mg (500 mg total) 23 tablet by mouth daily with breakfast. Taking only 1 tablet daily blood sugar USE 100 each 10 12/17/2020 12/18/19 Active diagnostic strips DIRECTED TO 22 TEST 1 TO 3 TIMES DAILY omeprazole 0 08/20/2021 Active (PriLOSEC) [address] capsule clopidogreL 0 08/08/2021 Active (PLAVIX) 75 mg tablet allopurinoL Take 100 mg by 0 10/23/2021 Ac tive (ZYLOPRIM) 100 mg mouth daily. tablet Takes 2 tabs UNABLE TO FIND Med Name: 0 Activ e Trulicity furosemide (LASIX) Take 0.5 30 tablet 0 12/10/2021 12/11/19 Active 20 mg tablets (10 mg 23 tabletIndications: total) by Ischemic Heart mouth as Chronic Disease, directed. Take Coronary Stent 0.5 tablet as Status Post, Pain needed for Chest Atypical, swelling and Edema shortness of breath. ASPIRIN ORAL Take 81 mg by 0 03/02/2012 11/14/19 Di scontinued mouth daily. 22 Take with food for heart health. amLODIPine Take 5 mg by 0 11/14/19 Discon tinued (NORVASC) 5 mg mouth daily. 22 tablet furosemide (LASIX) Take 0.5 2 tablet 0 07/25/2020 12/10/19 Discontinued 20 mg tablet tablets (10 mg 22 (R eorder) total) by mouth as directed. Take 0.5 tablet as needed for swelling. Active Problems Problem Noted Date Coronary Stent Status Post 12/15/2019 Hyperlipidemia Mixed 03/17/2019 Diarrhea 12/14/2017 Overview: Added automatically from request for cookie dozier [id number] Anemia 12/14/2017 Overview: Added automatically from request for cookie dozier [id number] Ischemic Heart Chronic Disease 02/05/2015 Overview: Coronary Artery Disease (CAD) [place] judith Diabetes Mellitus Type 2 08/07/2010 Vertigo Vertigo Benign Positional Bilateral Vertigo Benign Paroxysmal Positional Right Encounters Date Type Specialty Care Team Description 12/09/2021 Refill Cardiovascular Anthonyfius, Med Refill Disease Lise Murray R.N. 12/06/2021 Clinical Cardiovascular Kush, Neck Pain Communication Disease Vignesh Lance M.D. 11/13/2021 Office Visit Cardiovascular Kush, Diabetes Samreen itus Type 2 (HCC) (Primary Dx); Disease Vignesh Lance, Coronary Stent Status Post; M.DJairo Anemia; Pain Chest Atyp ical 11/11/2021 Clinical Cardiovascular Kush, Communication Disease Vignesh Lance M.D. from Last 3 Months Immunizations Name Administration [...] Sign Reading Time Taken Comments Blood Pressure 137/59 11/13/2021 3:09 PM CDT Pulse 86 11/13/2021 3:09 PM CDT Temperature 36.3 ??C (97.3 ??F) 11/13/2021 3:09 PM CDT Respiratory Rate 16 08/01/2020 12:12 PM CDT Oxygen Saturation 100% 08/01/2020 12:12 PM CDT Inhaled Oxygen Concentration - - Weight 80.5 kg (177 lb 7.5 oz) 11/13/2021 3:09 PM CDT Height 159.8 cm (5' 2.91) 11/13/2021 3:09 PM CDT Body Mass Index 31.52 11/13/2021 3:09 PM CDT Plan of Treatment Upcoming Encounters Date Type Specialty Care Team Description 12/26/2021 Office Visit Cardiovascular Disease Maritza Currie M.D. [address] [place] [address] [phone] (Wo rk) 01/16/2022 Appointment Radiology Vignesh Currie M.D. [address] [place], [place] [phone] (Wo rk) 01/16/2022 Appointment Cardiovascular Disease Maritza Currie M.D. [address] [place] [address] [phone] (Wo rk) 01/16/2022 Appointment Radiology Vignesh Currie M.D. [address] [place] [address] [phone] (Wo rk) 01/16/2022 Appointment Cardiovascular Disease Maritza Currie M.D. [address] [place] [address] [phone] (Wo rk) Health Maintenance Due Date Last [...] (1 - Tdap) 02/14/2010, Additional history exists COVID-19 Vaccine (4 - 02/12/2021 12/18/2020, 05/15/2020, Booster for Pfizer series) 04/20/2020 Depression Screening 02/16/2021 (Annual PHQ-2) Fall Risk Screen (Annual) 02/16/2021 Thyroid Stimulating 03/16/2021 03/16/2020, 04/22/2018, Hormone (TSH) test for 12/12/2013, Additional thyroid function history exists Hemoglobin A1C 05/15/2021 02/14/2021, 07/25/2020, 06/15/2020, Additional history exists Dilated Eye Exam 06/14/2021 06/14/2020, 07/18/2019, 02/24/2019, Additional history exists Influenza Vaccine (#1) 2021 11/09/2020, 01/17/2019, 01/18/2018, Additional history exists Creatinine Level 02/14/2022 02/14/2021, 07/25/2020, 03/16/2020, Additional history exists Office Visit for Blood 11/13/2022 11/13/2021 Pressure Check / Re-check Colonoscopy Discontinued 01/03/2009 Colorectal Cancer Discontinued Screening FIT Discontinued 06/25/2014 Mammogram Discontinued 07/29/2016, 07/31/2015, 07/27/2015, Additional history exists Pneumococcal vaccine (65+ Completed 08/16/2019, 06/21/2014 , years) 01/28/2008 CT Colonography Discontinued Cologuard Discontinued HPV Vaccines Aged Out No longer eligib le based on patient 's age to complete this topic Medical Devices Implanted Type 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 Device Status Text - [id number]. Procedures Procedure Name Priority Date/Time Associated Diagnosis Comme nts OUTSIDE CT BODY Routine 10/24/2021 5:05 PM Result s for this CDT procedure are i n the results section. OUTSIDE US Routine 10/24/2021 4:40 PM Results f or this CDT procedure are i n the results section. OUTSIDE DX CHEST Routine 10/24/2021 10:35 AM Resu lts for this CDT procedure are i n the results section. from Last [address] ANGIO CHEST PE PROTOCOL-Outside CT Body (10/24/2021 5:05 PM CDT) Specimen (Source) Anatomical Location Collection Method / Collectio n Time Received Time / Laterality Volume Narrative IIMS - 10/29/2021 11:36 AM CDT This order has been created and auto-finalized to support the import of outside images. If available, original i nterpretation can be found on the Media Tab in Chart Review, in Document V iewer, or as an image in QREADS. If a re-interpretation or overread is re quired please follow defined workflow. ?? Provider Not In System IMG CT PROCEDURES Performing Organization Address [facility] Phon e Number DAMIAN SALGADO NA US venous LE BI-Outside US (10/24/2021 4:40 PM CDT) Specimen (Source) Anatomical Location Collection Method / Collectio n Time Received Time / Laterality Volume Narrative IIWA - 10/29/2021 11:11 AM CDT This order has been created and auto-finalized to support the import of outside images. If available, original i nterpretation can be found on the Media Tab in Chart Review, in Document V iewer, or as an image in QREADS. If a re-interpretation or overread is re quired please follow defined workflow. ?? Provider Not In System IMG US PROCEDURES Performing Organization Address [facility] Phon e Number DAMIAN SALGADO NA XR CHEST 2V-Outside Chest Xray (10/24/2021 10:35 AM CDT) Specimen (Source) Anatomical Location Collection Method / Collectio n Time Received Time / Laterality Volume Narrative IIWA - 10/29/2021 11:11 AM CDT This order has been created and auto-finalized to support the import of outside images. If available, original i nterpretation can be found on the Media Tab in Chart Review, in Document V iewer, or as an image in QREADS. If a re-interpretation or overread is re quired please follow defined workflow. ?? Provider Not In System IMG DIAGNOSTIC IMAGING PROCE DURES Performing Organization Address [facility] Phon e Number II II NA from Last 3 Months Insurance Payer Benefit Plan Subscriber ID Effective Phone Address Typ e / Group Dates MEDICARE MEDICARE A [id number] 2010-Pres [address] [place] [address] BLUE CROSS BCBS TANGIRNAQ [id number] 2016-Pres [phone] PO DAVID X Cost Share BLUE SHIELD BLUE COST ent [phone] [place] [address] (Home) [place] [address]
--- OUTSIDE RECORDS SUMMARY | 2021-12-10 15:04 | XMS_ITS | Encounter Summary ---
:1945 Author Organization [facility] Address [address] [place] [address] Care Team Providers Name Role Phone Unavailable Primary Care Provider Unavailable Encounter Details Date Type Department Care Team Description 08/07/2020 Clinical Communication Department of Family No Contact , Pcp Medicine, [facility], in [address] [phone] Social History Tobacco Use Types [...] [place] - 08/07/2020 12:30 PM CDT Franklin Bahclemencia Kush Jean Darrell B, M.D. has put in a [...] the phone between 7 am-6 pm, Thursday-Thursday. [place]: [phone] [place]: [phone] [place]: [phone] [place]: [phone] [place]: [phone] [place]: [phone] [facility]: [phone] Nigel Montes [place], [place], or [place] clinics: [phone] [place]:[phone] [place]: [phone] Thank you for trusting your health care to [facility]. documented in this encounter Plan of Treatment Upcoming Encounters Date Type Specialty Care Team Description 12/26/2021 Office Visit Cardiovascular Disease Maritza Currie M.D. [address] [place] [address] [phone] (Wo rk) 01/16/2022 Appointment Radiology Vignesh Currie M.D. [address] [place] [address] [phone] (Wo rk) 01/16/2022 Appointment Cardiovascular Disease Maritza Currie M.D. [address] [place] [address] [phone] (Wo rk) 01/16/2022 Appointment Radiology Vignesh Currie M.D. [address] [place] [address] [phone] (Jean rk) 01/16/2022 Appointment Cardiovascular Disease Maritza Currie M.D. [address] [place] [address] [phone] ([place]) documented as of this encounter Visit Diagnoses Not on filedocumented in this encounter Additional Health Concerns Assessment Noted Time PHQ-9 Depression Total Score: 7 06/21/2014 9:20 AM CDT documented as of this encounter
--- OUTSIDE RECORDS SUMMARY | 2021-12-10 15:04 | XMS_ITS | Encounter Summary ---
:1945 Author Organization [facility] Address [address] [place] [address] Care Team Providers Name Role Phone Unavailable Primary Care Provider Unavailable Reason for Visit Reason Comments Infection Encounter Details Date Type Department Care Team Description 08/13/2021 Nurse Triage Department of [facility] Maliha Faulkner, Marlen [facility] Medicine, [facility], in M.S.N., R.N. [place], [place] [address] [place] [address] Social History Tobacco Use Types Packs/Day Years [...] Miscellaneous Notes Telephone Encounter - Maliha Faulkner, M.S.N., R.N. - 08/13/2021 8:43 AM CDT Chief Complaint / Reason for Call Patient is a 76 y.o. female calling regarding Infection. Assessment Concern: Gout surgery on Left index Finger on 07/09/21 from an outside facility out of [place]. She is not concerned with signs of infection due to mild pain, redness, and swelling of finger. Also stating she has concerns of generalized extremity weakness following surgery, having a difficulty time lifting arms and legs. Denies any SOB, chest pain, necrotic tissue, drainage, fevers, chills. Since procedure was done at an outside facility with no PCP here at [place], it was recommended she follow back up [...] Visit Cardiovascular Disease Maritza Currie M.D. [address] [place] [address] [phone] (Jean rk) 01/16/2022 Appointment Radiology Vignesh Currie M.D. [address] [place] [address] [phone] (Wo rk) 01/16/2022 Appointment Cardiovascular Disease Maritza Currie M.D. [address] [place] [address] [phone] (Wo rk) 01/16/2022 Appointment Radiology Vignesh Currie M.D. [address] [place] [address] [phone] (Wo rk) 01/16/2022 Appointment Cardiovascular Disease Maritza Currie M.D. [address] [place] [phone] ([place]) documented as of this encounter Visit Diagnoses Not on filedocumented in this encounter Additional Health Concerns Assessment Noted Time PHQ-9 Depression Total Score: 7 06/21/2014 9:20 AM CDT documented as of this encounter
--- OUTSIDE RECORDS SUMMARY | 2021-12-10 15:04 | XMS_ITS | Encounter Summary ---
:1945 Author Organization [facility] Address [address] [place] [address] Care Team Providers Name Role Phone Unavailable Primary Care Provider Unavailable Reason for Visit Reason Comments Eye Problem Encounter Details Date Type Department Care Team Description 06/24/2021 Clinical Communication Department of Estelle Martinez Ophthalmology in Eric Abrams R.N. [address] [phone] Social History Tobacco Use Types Packs/Day Years [...] has been evaluated in the ED in [place] whereshe had a head CT and labs [...] Her last eye exam was done in [facility]. Intervention Reaching out to [facility] for guidance. Has patient called or presented with the same symptom previously no Is patient experiencing other symptoms: no The following references were used: nursing clinical judgement and Basilio Telephone Triage Protocolsfor Nurses: [phone] Education provided: patient/caller able to teach back Disposition/Recommendation: notified provider and awaiting recommendations Caller agreeable to plan of care: yes The following individuals participated in today???s interaction: patient Competitive Intelligence Analyst used: no Additional concerns addressed: none documented in this encounter Plan of Treatment Upcoming Encounters Date Type Specialty Care Team Description 12/26/2021 Office Visit Cardiovascular Disease Maritza Currie M.D. 200 [place], [place] [phone] ([place]) 01/16/2022 Appointment Radiology Vignesh Currie M.D. [address] [place] [address] [phone] ([place]) 01/16/2022 Appointment Cardiovascular Disease Maritza Currie M.D. [address] [place] [address] [phone] (Jean [place]) 01/16/2022 Appointment Radiology Vignesh Currie M.D. [address] [place] [address] [phone] ([place]) 01/16/2022 Appointment Cardiovascular Disease Maritza Currie M.D. [address] [place], [place] 55 [phone] (Wo rk) documented as of this encounter Visit Diagnoses Not on filedocumented in this encounter Additional Health Concerns Assessment Noted Time PHQ-9 Depression Total Score: 7 06/21/2014 9:20 AM CDT documented as of this encounter
--- OUTSIDE RECORDS SUMMARY | 2021-12-10 15:04 | XMS_ITS | Encounter Summary ---
:1945 Author Organization [facility] Address [address] [place] [address] Care Team Providers Name Role Phone Unavailable Primary Care Provider Unavailable Reason for Visit Reason Comments COVID Inquiry Encounter Details Date Type Department Care Team Description 07/26/2020 Clinical Communication Department of Vignesh Currie OVID Inquiry Cardiovascular Medicine Lee Lance in [facility] [address] [facility] [[email or web address] [address] [place] [phone] Social History Tobacco Use Types Packs/Day Years [...] Miscellaneous Notes Telephone Encounter - Dinorah Pedraza - 07/26/2020 2:51 PM CDT What is the purpose of the call?: Standard Appointment Process Standard Appointment Process Have you tested positive for COVID-19 in the last 20 days OR do you have a pending COVID-19 test because you had symptoms?: No, neither apply What region is the appointment being requested?: Less than 14 days [place] In the past 14 days are any [...] sending patient for testing in [facility] or [facility], route encounter to the correct testing pool. documented in this encounter Plan of Treatment Upcoming Encounters Date Type Specialty Care Team Description 12/26/2021 Office Visit Cardiovascular Disease Maritza Currie M.D. [address] [place] [address] [phone] (Wo rk) 01/16/2022 Appointment Radiology Vignesh Currie M.D. [address] [place] [address] [phone] (Wo rk) 01/16/2022 Appointment Cardiovascular Disease Maritza Currie M.D. [address] [place] [address] [phone] (Wo rk) 01/16/2022 Appointment Radiology Vignesh Currie M.D. [address] [place] [phone] (Wo rk) 01/16/2022 Appointment Cardiovascular Disease Maritza Currie M.D. [address] [place] [address] [phone] (Wo rk) documented as of this encounter Visit Diagnoses Not on filedocumented in this encounter Additional Health Concerns Assessment Noted Time PHQ-9 Depression Total Score: 7 06/21/2014 9:20 AM CDT documented as of this encounter
--- OUTSIDE RECORDS SUMMARY | 2021-12-10 15:04 | XMS_ITS | Encounter Summary ---
:1945 Author Organization [facility] Address [address] [place] [address] Care Team Providers Name Role Phone Unavailable Primary Care Provider Unavailable Reason for Visit Reason Comments Med Refill Encounter Details Date Type Department Care Team Description 12/09/2021 Refill Department of Cardiovascular Lise Boo R.N. Med Refill Diseases in [address] [phone] Social History Tobacco Use Types Packs/Day Years [...] this encounter Miscellaneous Notes Telephone Encounter - Lise Lopez R.N. - 12/09/2021 9:38 AM CDT Pt has no lasix left she has not been taking but is somewhat sob with activity. You asked her to increase her lasix . Pt hasn't been taking so I told her we would fill it and she could start that againas needed for swelling and sob. Currently she is having no troubles laying flat at night and is not noticing any increased swelling just sob with increased activity. See previous encounter also routed to you in communication. documented in this encounter Plan of Treatment Upcoming Encounters Date Type Specialty Care Team Description 12/26/2021 Office Visit Cardiovascular Disease Maritza Currie M.D. [address] [place] [address] [phone] (Wo rk) 01/16/2022 Appointment Radiology Vignesh Currie M.D. [address] [place] [address] [phone] (Wo rk) 01/16/2022 Appointment Cardiovascular Disease Maritza Currie M.D. [address] [place] [address] [phone] (Wo rk) 01/16/2022 Appointment Radiology Vignesh Currie M.D. [address] [place] [address] [phone] (Wo rk) 01/16/2022 Appointment Cardiovascular Disease Maritza Currie M.D. [address] [place] [address] [phone] (Wo rk) documented as of this encounter Visit Diagnoses Diagnosis Ischemic Heart Chronic Disease - Primary Coronary Stent Status Post Pain Chest Atypical Edema documented in this encounter Additional Health Concerns Assessment Noted Time PHQ-9 Depression Total Score: 7 06/21/2014 9:20 AM CDT documented as of this encounter
--- OUTSIDE RECORDS SUMMARY | 2021-12-10 15:04 | XMS_ITS | Encounter Summary ---
:1945 Author Organization [facility] Address [address] [place] [address] Care Team Providers Name Role Phone Unavailable Primary Care Provider Unavailable Encounter Details Date Type Department Care Team Description 08/02/2020 Orders Only Department of Cardiovascular Xander Currie, Diseases in Eric Drummond M.D. [place] [address] [facility] [address] [place] [phone] ([place]) Social History Tobacco Use Types Packs/Day Years [...] Cardiovascular Disease Maritza Currie M.D. [address] [place], [place] [phone] ([place]) 01/16/2022 Appointment Radiology Vignesh Currie M.D. [address] [place], [place] [phone] ([place]) 01/16/2022 Appointment Cardiovascular Disease Maritza Currie M.D. [address] [place], [place] [phone] (Wo rk) 01/16/2022 Appointment Radiology Vignesh Currie M.D. [address] [place] [address] [phone] (Wo rk) 01/16/2022 Appointment Cardiovascular Disease Maritza Currie M.D. [address] [place] [address] [phone] (Wo rk) documented as of this encounter Visit Diagnoses Not on filedocumented in this encounter Additional Health Concerns Assessment Noted Time PHQ-9 Depression Total Score: 7 06/21/2014 9:20 AM CDT documented as of this encounter
--- OUTSIDE RECORDS SUMMARY | 2021-12-10 15:04 | XMS_ITS | Encounter Summary ---
:1945 Author Organization [facility] Address [address] [place] [address] Care Team Providers Name Role Phone Unavailable Primary Care Provider Unavailable Encounter Details Date Type Department Care Team Description 11/11/2021 Clinical Communication Department of Vignesh Currie Cardiovascular Diseases Lee Lance in [address] [address] [place], [place] [phone] (Work) [phone] Social History Tobacco Use Types Packs/Day Years [...] Visit Cardiovascular Disease Maritza Currie M.D. 200 [place], [place] [phone] ([place]) 01/16/2022 Appointment Radiology Vignesh Currie M.D. [address] [place], [place] [phone] ([place]) 01/16/2022 Appointment Cardiovascular Disease Maritza Currie M.D. [address] [place], [place] [phone] (Wo rk) 01/16/2022 Appointment Radiology Vignesh Currie M.D. [address] [place] [address] [phone] (Wo rk) 01/16/2022 Appointment Cardiovascular Disease Maritza Currie M.D. [address] [place] [address] [phone] (Wo rk) documented as of this encounter Visit Diagnoses Not on filedocumented in this encounter Additional Health Concerns Assessment Noted Time PHQ-9 Depression Total Score: 7 06/21/2014 9:20 AM CDT documented as of this encounter
--- OUTSIDE RECORDS SUMMARY | 2021-12-10 15:04 | XMS_ITS | Encounter Summary ---
:1945 Author Organization [facility] Address [address] [place] [address] Care Team Providers Name Role Phone Unavailable Primary Care Provider Unavailable Reason for Visit Reason Comments Neck Pain Encounter Details Date Type Department Care Team Description 12/06/2021 Clinical Communication Department of Vignesh Currie Pain Cardiovascular Medicine Lee Lance in [facility] [address] [place] [address] [place] [phone] Social History Tobacco Use Types Packs/Day Years [...] Encounter - Lise Lopez R.N. - 12/09/2021 9:50 AM CDT Nurse called this pt to instruct on Lasix and echo ... Pt does not take Lasix currently and does not have any so Refill was routed to you. Pt will take half a tab as needed for swelling/sob. 2. Your message stated to get echo and then you will recommend stress test. The Nuc Med Stress test is already scheduled for the same day as echo. Do you want just the echo for now? 3. Pt is having more neck pain that is lasting much of the night last couple nights. Sometimes it comes on with swallowing , or moving her neck. Nurse informed pt that this does not sound to be cardiacin nature however, sometimes it comes on just laying in bed. Nurse instructed pt it is then she should come to the ED for evaluation as they can do a work up at that time and determine if it is likely cardiac in nature.She has spoken to Dr. Currie about the neck pain however it is happening more oftennow. Currently she is not having any neck pain. Pt is able to lay flat at night no sob with this and swelling is stable no increase in swelling of lower legs. She was instructed to also come to the ED if she is having troubles with sob and laying flat at night and increased swelling. Telephone Encounter - Vignesh Currie M.D. - 12/06/2021 4:38 PM CDT She is really not on anything that would drop BP. She can trial increasing the dose of Lasix on daysshe is more SOB. Let's wait to see what the resting echo shows. If unrevealing, then we will pursue a stress test. Telephone Encounter - Yadira Chambers R.N. - 12/06/2021 2:04 PM CDT I reached out to the patient for more information regarding her blood pressure concerns and the shortness of breath. Patient states her blood pressure reading today was 116/66. She stated it is normally in the 130-140range. I did let her know that 116/66 is considered a normal blood pressure reading. She also asked at what point is too low. I advised that if blood pressure drops 100 or lower on the top and into the50s or lower on the bottom she should reach out or be seen. Her shortness of breath only occurs with activity such as climbing stairs or constant activity. Onceshe sits down it resolves. I asked about her medications and she stated her allopurinol was recentlyincreased to 200 mg daily. Patient stated she looked at the side effects and it mentioned about shortness of breath. I advised she reach out to her [employer] regarding this but that I would also reach out to Dr. Currie for his advice on both the blood pressure and shortness of breath. Patient is agreeable with this plan and will await our response. Telephone Encounter - Leona Huddleston - 12/06/2021 10:06 AM CDT Patient's BP has been very low and was told to keep track of it. Would like to let him know what it's been like. This morning was 116/66 Out of breath a lot lately as well. documented in this encounter Plan of Treatment Upcoming Encounters Date Type Specialty Care Team Description 12/26/2021 Office Visit Cardiovascular Disease Maritza Currie M.D. [address] [place] [address] [phone] ([place]) 01/16/2022 Appointment Radiology Vignesh Currie M.D. [address] [place] [address] [phone] ([place]) 01/16/2022 Appointment Cardiovascular Disease Maritza Currie M.D. [address] [place] [address] [phone] ([place]) 01/16/2022 Appointment Radiology Vignesh Currie M.D. [address] [place] [address] 55 [phone] ([place]) 01/16/2022 Appointment Cardiovascular Disease Maritza Currie M.D. [address] [place] [address] [phone] (Wo rk) documented as of this encounter Visit Diagnoses Not on filedocumented in this encounter Additional Health Concerns Assessment Noted Time PHQ-9 Depression Total Score: 7 06/21/2014 9:20 AM CDT documented as of this encounter
--- OUTSIDE RECORDS SUMMARY | 2021-12-10 15:04 | XMS_ITS | Encounter Summary ---
:1945 Author Organization [facility] Address [address] [place] [address] Care Team Providers Name Role Phone Unavailable Primary Care Provider Unavailable Encounter Details Date Type Department Care Team Description 12/17/2020 Orders Only [facility] Lincoln Dominog M.D. [place] 1705 [facility] [address] [address] [place], [place] [address] [phone] Social History Tobacco Use Types Packs/Day Years [...] Visit Cardiovascular Disease Maritza Currie M.D. 200 [place], [place] [phone] ([place]) 01/16/2022 Appointment Radiology Vignesh Currie M.D. [address] [place] [address] [phone] ([place]) 01/16/2022 Appointment Cardiovascular Disease Maritza Currie M.D. [address] [place], [place] [phone] (Wo rk) 01/16/2022 Appointment Radiology Vignesh Currie M.D. [address] [place] [address] [phone] (Wo rk) 01/16/2022 Appointment Cardiovascular Disease Maritza Currie M.D. [address] [place] [address] [phone] (Wo rk) documented as of this encounter Visit Diagnoses Not on filedocumented in this encounter Additional Health Concerns Assessment Noted Time PHQ-9 Depression Total Score: 7 06/21/2014 9:20 AM CDT documented as of this encounter
--- OUTSIDE RECORDS SUMMARY | 2021-12-10 15:04 | XMS_ITS | Encounter Summary ---
:1945 Author Organization [facility] Address [address] [place] [address] Care Team Providers Name Role Phone Unavailable Primary Care Provider Unavailable Reason for Referral MRI/CAT/PET Scan (Routine) - Closed Specialty Diagnoses / Procedures Referred By Contact Refer red To Contact Radiology Diagnoses Coronary Stent Status Post Pain Chest Atypical Vignesh Currie M.D. [facility] Procedures CT Cardiac Angiogram with Coronary Arteries with IV Contrast CT Cardiac Angiogram with IV Contrast 200 [place], [place] [phone] Referral ID Status Reason Start Date Expiration Date Visits Requ ested Visits Authorized [id number] Closed 07/25/2020 07/25/2021 1 1 Reason for Visit Reason Comments Shortness of Breath Appointment Request (Routine) - Closed Specialty Diagnoses / Procedures Referred By Contact Refer red To Contact Cardiovascular Disease Referral ID Status Reason Start Date Expiration Date Visits Requ ested Visits Authorized [id number] Closed 07/18/2020 07/18/2021 1 1 Encounter Details Date Type Department Care Team Description 07/25/2020 Office Visit Department of Vignesh Currie Pain Chest Atypical (Primary Dx); Cardiovascular Diseases Lee Lance Anemia; in [place], [address] [place] [address] Coronary Stent Status Post [place] [address] [address] [place], [place] [phone] (Work) [phone] Social History Tobacco Use Types Packs/Day Years [...] Ceja is a pleasant 75-year-old female from [place], [place]. She is known to me from [...] intolerance for example when walking up the [employer] or doing other chores around the house. [...] 2018. I did compare it with recent [facility] blood work. This is a bit higher [...] on reviewing the outside blood work at [facility]. I think it would be reasonable to repeat a basic metabolic panel in a couple of weeks. I also ordered a ferritin to be added to her stored specimen. She has a history of chronic anemia, but I do not see that she has had prior iron studies. Vignesh Currie M.D. CT CT Job ID: [id number] documented in this encounter Plan of Treatment Upcoming Encounters Date Type Specialty Care Team Description 12/26/2021 Office Visit Cardiovascular Disease Maritza Currie M.D. [address] [place], [place] [phone] ([place]) 01/16/2022 Appointment Radiology Vignesh Currie M.D. [address] [place] [phone] ([place]) 01/16/2022 Appointment Cardiovascular Disease Maritza Currie M.D. [address] [place] [phone] (Wo rk) 01/16/2022 Appointment Radiology Vignesh Currie M.D. [address] [place], [place] [phone] (Wo rk) 01/16/2022 Appointment Cardiovascular Disease Maritza Currie M.D. [address] [place], [place] [phone] (Wo rk) Scheduled Orders Name Type Priority Associated Diagnoses [...] plaque ? Procedure Note Noah Knutson M.B.B.S., MArmen - 07/17 EXAM: CT CARDIAC ANGIOGRAM [...]
--- OUTSIDE RECORDS SUMMARY | 2021-12-10 15:04 | XMS_ITS | Encounter Summary ---
:1945 Author Organization [facility] Address [address] [place] [address] Care Team Providers Name Role Phone Unavailable Primary Care Provider Unavailable Reason for Visit Physical Therapy (Routine) - Authorized Specialty Diagnoses / Procedures Referred By Contact Refer red To Contact Diagnoses Imbalance Non Orthopedic Adriane Patel, C.N.P. [facility] Procedures PT Ongoing treatment [address] [place], [place] [address] Referral ID Status Reason Start Date Expiration Date Visits V isits Requested Authorized [id number] Authorized 07/23/2021 07/23/2022 99 99 Encounter Details Date Type Department Care Team Description 07/26/2021 Clinical Support Department of Ai Patel, C.N.P. [address] [place] [address] Imbalance Non Rehabilitation Luciana Ferguson, P.T. [address] [place] [phone] Orthopedic Services in [address] [phone] Social History Tobacco Use Types Packs/Day Years [...] no OBJECTIVE Pain: no new complaint. Hallpike Karan test caused symptom reproduction for the right [...] Visit Cardiovascular Disease Maritza Currie M.D. 200 [place], [place] [phone] (Wo rk) 01/16/2022 Appointment Radiology Vignesh Currie M.D. 200 [place], [place] [phone] (Wo rk) 01/16/2022 Appointment Cardiovascular Disease Maritza Currie M.D. [address] [place], [place] [phone] (Wo rk) 01/16/2022 Appointment Radiology Vignesh Currie M.D. [address] [place], [place] [phone] (Wo rk) 01/16/2022 Appointment Cardiovascular Disease Maritza Currie M.D. [address] [place], [place] [phone] (Jean rk) documented as of this encounter Visit Diagnoses Diagnosis Imbalance Non Orthopedic documented in this encounter Additional Health Concerns Assessment Noted Time PHQ-9 Depression Total Score: 7 06/21/2014 9:20 AM CDT documented as of this encounter
--- OUTSIDE RECORDS SUMMARY | 2021-12-10 15:04 | XMS_ITS | Encounter Summary ---
:1945 Author Organization [facility] Address [address] [place] [address] Care Team Providers Name Role Phone Unavailable Primary Care Provider Unavailable Encounter Details Date Type Department Care Team Description 10/02/2020 Orders Only RST PCP [facility] Lana Terry M.D. [address] [place] [phone] ([place]) Social History Tobacco Use Types [...] Cardiovascular Disease Maritza Currie M.D. [address] [place] [phone] ([place]) 01/16/2022 Appointment Radiology Vignesh Currie M.D. [address] [place] [phone] ([place]) 01/16/2022 Appointment Cardiovascular Disease Maritza Currie M.D. [address] [place] [address] [phone] ([place]) 01/16/2022 Appointment Radiology Vignesh Currie M.D. [address] [place], [place] [phone] (Wo rk) 01/16/2022 Appointment Cardiovascular Disease Maritza Currie M.D. [address] [place], [place] [phone] (Jean rk) documented as of this encounter Visit Diagnoses Not on filedocumented in this encounter Additional Health Concerns Assessment Noted Time PHQ-9 Depression Total Score: 7 06/21/2014 9:20 AM CDT documented as of this encounter
--- OUTSIDE RECORDS SUMMARY | 2021-12-10 15:04 | XMS_ITS | Encounter Summary ---
:1945 Author Organization [facility] Address [address] [place] [address] Care Team Providers Name Role Phone Unavailable Primary Care Provider Unavailable Encounter Details Date Type Department Care Team Description 05/15/2020 Immunization Department of Yasmani Wells For COVID-19 Medicine, [place] Lee Simons Vaccine Immunization Professional Building, [address] [place] [address] AVE [address] [place] [address] [phone] Social History Tobacco Use Types Packs/Day Years [...] Visit Cardiovascular Disease Maritza Currie M.D. 200 [place], [place] [phone] ([place]) 01/16/2022 Appointment Radiology Vignesh Currie M.D. 200 [place], [place] [phone] ([place]) 01/16/2022 Appointment Cardiovascular Disease Maritza Currie M.D. [address] [place], [place] [phone] (Wo rk) 01/16/2022 Appointment Radiology Vignesh Currie M.D. [address] [place], [place] [phone] (Wo rk) 01/16/2022 Appointment Cardiovascular Disease Maritza Currie M.D. [address] [place] [address] [phone] ([place]) documented as of this encounter Visit Diagnoses Diagnosis Encounter For COVID-19 Vaccine Immunizat ion documented in this encounter Additional Health Concerns Assessment Noted Time PHQ-9 Depression Total Score: 7 06/21/2014 9:20 AM CDT documented as of this encounter
--- OUTSIDE RECORDS SUMMARY | 2021-12-10 15:04 | XMS_ITS | Encounter Summary ---
:1945 Author Organization [facility] Address [address] [place] [address] Care Team Providers Name Role Phone Unavailable Primary Care Provider Unavailable Reason for Referral Outpatient (Routine) - Authorized Specialty Diagnoses / Procedures Referred By Contact Refer red To Contact Vignesh Currie M .D. [facility] [address] [place] [address] Referral ID Status Reason Start Date Expiration Date Visits V isits Requested Authorized [id number] Authorized 11/13/2021 11/13/2022 1 1 Outpatient (Routine) - Authorized Specialty Diagnoses / Procedures Referred By Contact Refer red To Contact Diagnoses Diabetes Mellitus Type 2 (HCC) Coronary Stent Status Post Anemia Pain Chest Atypical Vignesh Currie M.D. [facility] [place] [facility] Procedures Echo Transthoracic (TTE) [address] [place] [address] Referral ID Status Reason Start Date Expiration Date Visits V isits Requested Authorized [id number] Authorized 11/13/2021 11/13/2022 1 1 Outpatient (Routine) - Authorized Specialty Diagnoses / Procedures Referred By Contact Refer red To Contact Diagnoses Diabetes Mellitus Type 2 (HCC) Coronary Stent Status Post Anemia Pain Chest Atypical Vignesh Currie M.D. [facility] Procedures NM Cardiac Perfusion Rest and Stress SPECT [address] [place] [address] Referral ID Status Reason Start Date Expiration Date Visits V isits Requested Authorized [id number] Authorized 11/13/2021 11/13/2022 6 6 Reason for Visit Reason Comments Follow-up Appointment Request (Routine) - Closed Specialty Diagnoses / Procedures Referred By Contact Refer red To Contact Referral ID Status Reason Start Date Expiration Date Visits Requ ested Visits Authorized [id number] Closed 05/07/2021 05/07/2022 1 Encounter Details Date Type Department Care Team Description 11/13/2021 Office Visit Department of Vignesh Currie Diabetes Me llitus Type 2 (HCC) (Primary Dx); Cardiovascular Diseases Lee Lance Coronary Stent Status Post; in [facility] ta [address] Anemia; [address] [place], [place] [phone] Social History Tobacco Use Types Packs/Day Years [...] ??F) 11/13/2021 3:09 PM CDT Respiratory Rate - - Oxygen Saturation - - Inhaled Oxygen Concentration - - Weight 80.5 kg (177 lb 7.5 oz) 11/13/2021 3:09 PM CDT Height 159.8 cm (5' 2.91) 11/13/2021 3:09 PM CDT Body Mass Index 31.52 11/13/2021 3:09 PM CDT documented in this encounter Progress Notes Vignesh Currie M.D. - 11/13/2021 2:46 PM CDT SUBJECTIVE CHIEF COMPLAINT/REASON FOR VISIT Atypical chest pain. Dyspnea on exertion. HISTORY OF PRESENT ILLNESS Marcial is a pleasant 76-year-old female from [place], [place]. She is accompanied to clinic by her , Alex. She is known to me from prior consultations. She has a remote history of ischemic heart disease with prior stenting of the LAD in 2014. At that time, she presented with exertional d yspnea. More recent issues have been related to anemia with identification of gastritis on upper endoscopy. Her aspirin was transitioned to Plavix. She has been maintained on a PPI. She also has a history of rheumatoid arthritis, type 2 diabetes and hyperlipidemia. She has previously been trialed on statins with myalgias. She has strong feelings about not restarting a statin. It is on this background that Marcial has had 2 episodes of atypical chest discomfort. The 1st episode occurred approximately 2 weeks ago. Symptoms came on in the evening at rest. She recalled a discomfort across the shoulders that radiated to the neck and subsequently through the jaw all. She did not take nitroglycerin. The symptoms eventually resolved. Of note, she did not have exacerbation of symptoms with activity over the following week. Last night, she had a recurrent episode of discomfort in the evening, again at rest. There was similar discomfort in the neck and jaw. She took 2 nitroglycerinwith improvement in chest symptoms, but her neck discomfort continued. She has had some mild chest discomfort through the day today. Of note, her chest symptoms did not worsen with walking in from the parking lot to clinic. She was, however, more aware of her breathing with the walking. Her has also noticed some increased shortness of breath over the last several weeks. She denies tachy palpitations. She has had no exertional lightheadedness or falls. She has had no stroke or TIA symptoms. She has had no spontaneous mucocutaneous bleeding. She has some chronic mild lower extremity swelling, but otherwise has not had worsening heart failure symptoms. OBJECTIVE PHYSICAL EXAMINATION Vital Signs: Height 159.8 cm, weight 80.5 kg, heart rate 86 regular, blood pressure 137/59. General: This is an elderly female sitting comfortably in no acute distress. Eyes: Anicteric. Ears, Nose and Throat: The mucous membranes are covered by a surgical mask. Lungs: Clear to auscultation. Heart: Central venous pressure normal. Cardiac auscultation normal. Specifically, the rhythm is regular without audible murmur. Extremities: Warm with mild predominantly nonpitting edema. Psych: Alert, oriented, responding appropriately. Neuro: Afocal. ASSESSMENT / PLAN #1 Atypical chest pain, neck and jaw pain at rest #2 Coronary artery disease with prior stenting of the LAD (2014) #3 Type 2 diabetes, on metformin #4 Rheumatoid arthritis, on abatacept #5 Hyperlipidemia, recently discontinued Crestor due to myalgias PLAN: It was a pleasure to visit with Marcial and Alex in followup. She has had 2 fairly discrete episodes of atypical chest discomfort. Symptoms are most noticeable at rest, not exacerbated with activity. She trialed nitroglycerin on one occasion with modest improvement in chest symptoms, but incomplete relief of neck discomfort. Her physical exam is unrevealing today. She does not appear volume overloaded. Blood pressure is modestly elevated here in clinic, however, I do not think that explains her 2 discrete episodes of atypical symptoms. We will proceed to a myocardial perfusion vasodilator stress test. This will help to rule out significant ischemia. I would also like to obtain a resting echocardiogram. This will provide information about diastolic function, pulmonary pressure, and overall ventricular function. I suspect her if her exertional dyspnea is due to advancing age, probably deconditioning, and likelya component of heart failure with preserved ejection fraction. We will consider a diuretic at followup. In the meantime, I would like her to monitor blood pressure at home and record her readings so that we can review. Vignesh Currie M.D. CT CT Job ID: [id number]/[facility] documented in this encounter Plan of Treatment Upcoming Encounters Date Type Specialty Care Team Description 12/26/2021 Office Visit Cardiovascular Disease Maritza Currie M.D. [address] [place] [address] [phone] (Wo rk) 01/16/2022 Appointment Radiology Vignesh Currie M.D. [address] [place], [place] [phone] (Wo rk) 01/16/2022 Appointment Cardiovascular Disease Maritza Currie M.D. [address] [place], [place] [phone] (Wo rk) 01/16/2022 Appointment Radiology Vignesh Currie M.D. [address] [place], [place] 55 [phone] (Wo rk) 01/16/2022 Appointment Cardiovascular Disease Maritza Currie M.D. [address] [place] [address] [phone] (Wo rk) Scheduled Orders Name Type Priority Associated Order Schedule Diagnoses NM Cardiac Perfusion Cardiac Services RAD - Routine Diabetes [facility] Expected: Rest and Stress (most inpatients Type 2 (HCC) 11/13/2021 SPECT and all Coronary Stent (Approximate) , outpatients) Status Post Expires: Anemia 02/12/2023 Pain Chest Atypical Echo Transthoracic Echocardiography Routine Diabetes Mellitus Expected: (TTE) Type 2 (HCC) 11/13/2021 Coronary Stent (Approximate) , Status Post Expires: Anemia 02/12/2023 Pain Chest Atypical Scheduled Referrals Name Type Priority Associated Diagnoses Order S chedule NonF2F phone Outpatient Referral Routine Expected : visit 12/13/2021 (Approximate), Expires: 2022 documented as of this encounter Visit Diagnoses Diagnosis Diabetes Mellitus Type 2 (HCC) - Primary Coronary Stent Status Post Anemia Pain Chest Atypical documented in this encounter Additional Health Concerns Assessment Noted Time PHQ-9 Depression Total Score: 7 06/21/2014 9:20 AM CDT documented as of this encounter
--- OUTSIDE RECORDS SUMMARY | 2021-12-10 15:04 | XMS_ITS | Encounter Summary ---
:1945 Author Organization [facility] Address [address] [place] [address] Care Team Providers Name Role Phone Unavailable Primary Care Provider Unavailable Reason for Visit Reason Comments Symptom Assessment SOB, Lightheadedness Encounter Details Date Type Department Care Team Description 07/18/2020 Clinical Department of [place], Symptom Assess ment Communication Cardiovascular Vignesh Lance, [facility], [facility] [place], [place] [address] [phone] Social History Tobacco Use Types Packs/Day Years [...] to schedule patient with Dr. Currie in [place] on 07/25/2020 at 3:15pm with labs prior. [...] a message on her home phone number [phone] documented in this encounter Plan of Treatment Upcoming Encounters Date Type Specialty Care Team Description 12/26/2021 Office Visit Cardiovascular Disease Maritza Currie M.D. [address] [place] [address] [phone] ([place]) 01/16/2022 Appointment Radiology Vignesh Currie M.D. [address] [place] [address] [phone] ([place]) 01/16/2022 Appointment Cardiovascular Disease Maritza Currie M.D. [address] [place] [address] [phone] ([place]) 01/16/2022 Appointment Radiology Vignesh Currie M.D. [address] [place] [address] [phone] ([place]) 01/16/2022 Appointment Cardiovascular Disease Maritza Currie M.D. [address] [place] [address] [phone] ([place]) documented as of this encounter Results (ABNORMAL) [...] Organization Address City/State/ZIP Code Phon e Number [address] [address] [facility] [place] [address] [address] (ABNORMAL) Basic Metabolic Panel (07/25/2020 2:13 [...] eGFR-Black/Afri 39 (L) >=60 07/25/2020 [facility] can [place] mL/min/BSA 2:43 PM CDT Comment: ----ADDITIONAL INFORMATION---- Estimated GFR calculated using the 2009 CKD_EPI creatinine equation. eGFR Non-Black/ 34 (L) >=60 mL/min/BSA 07/25/2020 2:43 PM CDT [facility] [place] Comment: ----ADDITIONAL INFORMATION---- Estimated GFR calculated using [...] M.D. LAB BLOOD ADD-ON Performing Organization Address City/[facility] Phon e Number [address] [address] [facility] [place] [address] [address] (ABNORMAL) CBC without Differential (07/25/2020 2:13 PM CDT) [facility] gist Method Time Signature Hemoglobin 11.0 (L) [...] M.D. LAB BLOOD ADD-ON Performing Organization Address City/[facility] Code Phon e Number [address] [address] [facility] [place] [address] System in [place] [address] documented in this encounter Visit Diagnoses Diagnosis Ischemic Heart Chronic Disease - Primary Diabetes Mellitus Type 2 (HCC) documented in this encounter Additional Health Concerns Assessment Noted Time PHQ-9 Depression Total Score: 7 06/21/2014 9:20 AM CDT documented as of this encounter
--- OUTSIDE RECORDS SUMMARY | 2021-12-10 15:04 | XMS_ITS | Encounter Summary ---
:1945 Author Organization [facility] Address [address] [place] [address] Care Team Providers Name Role Phone Unavailable Primary Care Provider Unavailable Reason for Referral Outpatient (Routine) - Closed Specialty Diagnoses / Procedures Referred By Contact Refer red To Contact Diagnoses Opacity Lens Posterior Capsule Zach Novoa M.D. [facility] Region Procedures Yag Capsulotomy - OS - Left Eye [address] [facility] [place] [address] Referral ID Status Reason Start Date Expiration Date Visits Requ ested Visits Authorized [id number] Closed 06/14/2020 06/14/2021 1 1 Reason for Visit Reason Comments Yag Laser Encounter Details Date Type Department Care Team Description 06/14/2020 Office Visit Department of Zach Novoa Opacity Le ns Posterior Capsule (Primary Dx); Ophthalmology in Eric Simons M.D. Dry Eye Syndrome [place], [place] [address] [facility] [address] [place] [phone] Social History Tobacco Use Types Packs/Day Years [...] Visit Cardiovascular Disease Maritza Currie M.D. [address] [place], [place] [address] [phone] (Wo rk) 01/16/2022 Appointment Radiology Vignesh Currie M.D. [address] [place], [place] [phone] (Wo karthik) 01/16/2022 Appointment Cardiovascular Disease Maritza Currie M.D. [address] [place], [place] 55 [phone] (Wo rk) 01/16/2022 Appointment Radiology Vignesh Currie M.D. [address] [place], [place] 55 [phone] (Wo rk) 01/16/2022 Appointment Cardiovascular Disease Maritza Currie M.D. [address] [place], [place] 55 [phone] (Wo rk) documented as [...]
--- OUTSIDE RECORDS SUMMARY | 2021-12-10 15:04 | XMS_ITS | Encounter Summary ---
:1945 Author Organization [facility] Address [address] [place] [address] Care Team Providers Name Role Phone Unavailable Primary Care Provider Unavailable Reason for Visit Reason Comments Follow-up Appointment Request (Routine) - Closed Specialty Diagnoses / Procedures Referred By Contact Refer red To Contact Referral ID Status Reason Start Date Expiration Date Visits Requ ested Visits Authorized [id number] Closed 05/07/2021 05/07/2022 1 Encounter Details Date Type Department Care Team Description 06/26/2021 Office Visit Department of Vignesh Currie ent Status Post (Primary Dx); Cardiovascular Diseases B MJairoDJairo Imbalance Non Orthopedic; in [address] Diabetes Mellitus Type 2 (HCC); [place], [place] Hyperlipidemia Mixed [address] [place] [address] BLVD [address] [place], [place] [phone] (Work) [phone] Social History Tobacco Use Types Packs/Day Years [...] Marcial is a pleasant 76-year-old female from [place], [place]. She is known to me from [...] a while, but ultimately presented to the [facility] for evaluation. She underwent a [...] the left hand. She follows with a scow hand in the [facility]. She has been diagnosed with rheumatoid arthritis and receivesinfusion therapy with abatacept. My biggest concern today is difficulty reconciling her medications. Her cares list between [facility], [facility], as well as scow hand in the [facility]. She had her medications written down on [...] Vignesh Currie M.D. CT CT Job ID: [id number] documented in this encounter Plan of Treatment Upcoming Encounters Date Type Specialty Care Team Description 12/26/2021 Office Visit Cardiovascular Disease Maritza Currie M.D. [address] [place] [address] [phone] ([place]) 01/16/2022 Appointment Radiology Vignesh Currie M.D. [address] [place] [address] [phone] ([place]) 01/16/2022 Appointment Cardiovascular Disease Maritza Currie M.D. [address] [place] [address] [phone] ([place]) 01/16/2022 Appointment Radiology Vignesh Currie M.D. [address] [place] [address] [phone] ([place]) 01/16/2022 Appointment Cardiovascular Disease Maritza Currie M.D. [address] [place] [address] [phone] ([place]) documented as of this encounter Visit Diagnoses Diagnosis Coronary Stent Status Post - Primary Imbalance Non Orthopedic Diabetes Mellitus Type 2 (HCC) Hyperlipidemia Mixed documented in this encounter Additional Health Concerns Assessment Noted Time PHQ-9 Depression Total Score: 7 06/21/2014 9:20 AM CDT documented as of this encounter
--- OUTSIDE RECORDS SUMMARY | 2021-12-10 15:04 | XMS_ITS | Encounter Summary ---
:1945 Author Organization [facility] Address [address] [place] [address] Care Team Providers Name Role Phone Unavailable Primary Care Provider Unavailable Reason for Visit Reason Comments Hand Pain COVID Nurse Line Encounter Details Date Type Department Care Team Description 08/13/2021 Nurse Triage Department of Family Nataly Armstrong Pain; COVID Nurse Medicine in [facility] Shahla Anderson [place], [place] [address] [facility] [address] [place] [phone] Social History Tobacco Use Types Packs/Day Years [...] frequently with soap and water, use hand dx board operator if soap and water aren't available. -Wear [...] care: Yes The following references were used: [facility] novel coronavirus (COVID- 19) resources Telephone [...] left 2nd digit. States had surgery in [facility], states had a flair up after surgery [...] Patient was warm transferred toShelly Patient Appointment Progressive Care Manager at the clinic for further assistance. Care Advice Patient/Caregiver understands and will follow care advice?: Yes, able to teach back SEE PCP WITHIN 24 HOURS: * IF OFFICE WILL BE OPEN: You need to be examined within the next 24 hours. Call your doctor (or WELDING INSPECTOR/PA) when the office opens and make an [...] acetaminophen, ibuprofen, or naproxen. * They are crmf-spx-mwgigfn (OTC) pain drugs. You can buy them [...] acetaminophen overdose can hurt the liver. * [employer], the company that makes Tylenol, has different dosage instructions for Tylenol in [place] and the [place]. In [place], the maximum recommended dose per day is 4,000 mg or twelve Regular-Strength (325 mg) pills. In the [place], the maximum dose per day is ten Regular-Strength (325 mg) pills. * [employer], the company that makes Aleve, has different dosage instructions for Aleve in [place] and the[facility]. In [place], the maximum recommended dose per day is 440 mg (2 pills or caplets). In the [place], the maximum dose per day is [...] of skin around nail) Protocols used: FINGER SVUE-NZXZW-ON documented in this encounter Plan of Treatment Upcoming Encounters Date Type Specialty Care Team Description 12/26/2021 Office Visit Cardiovascular Disease Maritza Currie M.D. [address] [place] [address] [phone] (Wo rk) 01/16/2022 Appointment Radiology Vignesh Currie M.D. [address] [place] [address] [phone] (Wo rk) 01/16/2022 Appointment Cardiovascular Disease Maritza Currie M.D. [address] [place] [address] [phone] (Wo rk) 01/16/2022 Appointment Radiology Vignesh Currie M.D. [address] [place] [address] [phone] (Wo rk) 01/16/2022 Appointment Cardiovascular Disease Maritza Currie M.D. [address] [place] [address] [phone] (Wo rk) documented as of this encounter Visit Diagnoses Not on filedocumented in this encounter Additional Health Concerns Assessment Noted Time PHQ-9 Depression Total Score: 7 06/21/2014 9:20 AM CDT documented as of this encounter
--- OUTSIDE RECORDS SUMMARY | 2021-12-10 15:05 | XMS_ITS | Encounter Summary ---
:1945 Author Organization [facility] Address [address] [place] [address] Care Team Providers Name Role Phone Unavailable Primary Care Provider Unavailable Reason for Visit Reason Comments Decreased Visual Acuity Appointment Request (Routine) - Closed Specialty Diagnoses / Procedures Referred By Contact Refer red To Contact Ophthalmology Referral ID Status Reason Start Date Expiration Date Visits Requ ested Visits Authorized [id number] Closed 06/29/2019 06/28/2020 1 1 Encounter Details Date Type Department Care Team Description 07/18/2019 Office Visit Department of Nakita Hadleyphaphilip Le (Primary Dx); Ophthalmology in [facility] Janak Moe M.D. Blepharitis Right; [place], [place] [address] Other Subjective Visual Disturbances [address] [place] [phone] Social History Tobacco Use Types Packs/Day Years [...] Visit Cardiovascular Disease Maritza Currie M.D. [address] [place] [address] [phone] (Wo rk) 01/16/2022 Appointment Radiology Vignesh Currie M.D. [address] [place] [address] [phone] (Wo rk) 01/16/2022 Appointment Cardiovascular Disease Maritza Currie M.D. [address] [place] [address] [phone] (Wo rk) 01/16/2022 Appointment Radiology Vignesh Currie M.D. [address] [place] [address] [phone] (Wo rk) 01/16/2022 Appointment Cardiovascular Disease Maritza Currie M.D. [address] [place] [address] [phone] (Wo rk) documented as of [...] Volume Narrative OPHTHALMOLOGY IMAGING EXAM - 07/18/19 10:20 AM CDT This result has an [...]
--- OUTSIDE RECORDS SUMMARY | 2021-12-10 15:05 | XMS_ITS | Encounter Summary ---
:1945 Author Organization [facility] Address [address] [place] [address] Care Team Providers Name Role Phone Unavailable Primary Care Provider Unavailable Encounter Details Date Type Department Care Team Description 07/18/2019 Silent Schedule Department of Janak Hadley Ophthalmology in [place] M. D. [address] [phone] ([place]) Social History Tobacco Use Types [...] Cardiovascular Disease Maritza Currie M.D. [address] [place], [place] [address] [phone] ([place]) 01/16/2022 Appointment Radiology Vignesh Currie M.D. [address] [place], [place] 55 [phone] ([place]) 01/16/2022 Appointment Cardiovascular Disease Maritza Currie M.D. [address] [place], [place] [phone] (Wo rk) 01/16/2022 Appointment Radiology Vignesh Currie M.D. [address] [place], [place] 55 [phone] (Wo rk) 01/16/2022 Appointment Cardiovascular Disease Maritza Currie M.D. [address] [place], [place] [phone] (Wo rk) documented as of this encounter Procedures Procedure Name Priority Date/Time Associated Diagnosis Comme [facility] OPTICAL COHERENCE Routine 07/18/2019 10:20 Other Subjective [...]
--- OUTSIDE RECORDS SUMMARY | 2021-12-10 15:05 | XMS_ITS | Encounter Summary ---
:1945 Author Organization [facility] Address [address] [place] [address] Care Team Providers Name Role Phone Unavailable Primary Care Provider Unavailable Encounter Details Date Type Department Care Team Description 12/15/2019 Hospital Encounter Department of Vignesh Currie miky Mellitus Type 2 (HCC); Laboratory Medicine Lee Lance Ischemic Heart Chronic Disease in [place] [phone] [facility] [phone] [place], [place] (Work) [phone] Social History Tobacco Use [...] 2018 LEVOTHROID) 75 mcg tablet mouth daily. ASPIRIN ORAL Take 81 mg by mouth 0 03/02/2012 daily. Take with food for heart health. furosemide (LASIX) 20 mg 0 07/20/2018 07/25/2020 tablet lisinopril Take 2.5 mg by 0 06/26/2021 (PRINIVIL,ZESTRIL) 2.5 mg mouth daily. tablet metFORMIN (GLUCOPHAGE) 500 Take 500 mg by 0 10/2706/26/2021 mg tablet mouth 2 (two) times a day. Taking only 1 tablet daily dundvgiq-agpxyuyuy-tgmqgjz 0 9 06/26/2021 hasone (MAXITROL) 3.5mg/mL-10,000 unit/mL-0.1 [...] Office Visit Cardiovascular Disease Maritza Currie M.D. [address] [place] [address] [phone] (Wo rk) 01/16/2022 Appointment Radiology Vignesh Currie M.D. [address] [place], [place] 55 [phone] (Wo rk) 01/16/2022 Appointment Cardiovascular Disease Maritza Currie M.D. [address] [place], [place] 55 [phone] (Jean rk) 01/16/2022 Appointment Radiology Vignesh Currie M.D. [address] [place], [place] 55 [phone] ([place]) 01/16/2022 Appointment Cardiovascular Disease Maritza Currie M.D. [address] [place], [place] 55 [phone] ([place]) documented as of [...] City/State/ZIP Code Phon e Number [facility]- [address] [place] [address] [place] [address] System in [place] [address] [address] documented in this encounter Visit Diagnoses Diagnosis Diabetes Mellitus Type 2 (HCC) Ischemic Heart Chronic Disease documented in this encounter Additional Health Concerns Assessment Noted Time PHQ-9 Depression Total Score: 7 06/21/2014 9:20 AM CDT documented as of this encounter
--- OUTSIDE RECORDS SUMMARY | 2021-12-10 15:05 | XMS_ITS | Encounter Summary ---
:1945 Author Organization [facility] Address [address] [place] [address] Care Team Providers Name Role Phone Unavailable Primary Care Provider Unavailable Encounter Details Date Type Department Care Team Description 02/26/2018 Comprehensive Visit Department of Elizabeth Patel C.N.P. [address] [place], [place] [phone] Vertigo Benign Paroxysmal Positional Rig ht; Rehabilitation Rogers Alva, P.T. [address] [place] [phone] Coronary Artery Disease [place]; Services in [place] Diabetes Mellitus Type 2 (HCC); [place], [place] Vertigo [address] [place] [address] [phone] Social History Tobacco Use Types Packs/Day Years [...] as of this encounter Progress Notes Rogers Alva, P.T. - 02/26/2018 11:00 AM CST Physical [...] Time (min): 25 min Functional G-code Worksheet oRgers Alva P.T. K SAUCE MAKER documented in this encounter Miscellaneous Notes Addendum Note - Rogers Alva PJairoT. - 02/26/2018 11:00 AM STEAK SAUCE MAKER Addended by: ROGERS ALVA on: 03/09/2018 09:39 AM Modules accepted: Orders K SAUCE MAKER documented in this encounter Plan of Treatment Upcoming Encounters Date Type Specialty Care Team Description 12/26/2021 Office Visit Cardiovascular Disease Maritza Currie M.D. [address] [place] [address] [phone] (Wo rk) 01/16/2022 Appointment Radiology Vignesh Currie M.D. [address] [place] [address] [phone] (Wo rk) 01/16/2022 Appointment Cardiovascular Disease Maritza Currie M.D. [address] [place] [address] [phone] (Wo rk) 01/16/2022 Appointment Radiology Vignesh Currie M.D. [address] [place] [address] [phone] (Wo rk) 01/16/2022 Appointment Cardiovascular Disease Maritza Currie M.D. [address] [place] [address] [phone] (Wo rk) documented as of this encounter Visit Diagnoses Diagnosis Vertigo Benign Paroxysmal Positional Rig ht Coronary Artery Disease [place] Diabetes Mellitus Type 2 (HCC) Vertigo documented in this encounter Additional Health Concerns Assessment Noted Time PHQ-9 Depression Total Score: 7 06/21/2014 9:20 AM CDT documented as of this encounter
--- OUTSIDE RECORDS SUMMARY | 2021-12-10 15:05 | XMS_ITS | Encounter Summary ---
:1945 Author Organization [facility] Address [address] [place] [address] Care Team Providers Name Role Phone Unavailable Primary Care Provider Unavailable Reason for Referral Outpatient (Routine) - Closed Specialty Diagnoses / Procedures Referred By Contact Refer red To Contact Cardiovascular Disease Vignesh Currie [facility] [place] [facility] M.D. [address] [place] [phone] Referral ID Status Reason Start Date Expiration Date Visits Requ ested Visits Authorized [id number] Closed 07/29/2018 07/29/2019 1 1 Reason for Visit Reason Comments Follow-up Outpatient (Routine) - Closed Specialty Diagnoses / Procedures Referred By Contact Refer red To Contact Cardiovascular Disease Vignesh Currie [facility] [place] [facility] M.D. [address] [place] [phone] Referral ID Status Reason Start Date Expiration Date Visits Requ ested Visits Authorized [id number] Closed 04/26/2018 04/26/2019 1 1 Encounter Details Date Type Department Care Team Description 07/29/2018 Office Visit Department of Vignesh Currie art Chronic Disease (Primary Dx); Cardiovascular Diseases Lee Lance Diabetes Mellitus Type 2 (HCC); in [place], [address] [place] [address] [address] [address] [place], [place] [phone] (Work) [phone] Social History Tobacco Use Types Packs/Day Years [...] Marcial is a pleasant 73-year-old female from [place], [place]. She is known to me from [facility] back in April. At that time, [...] consultation with greater than 50% in direct fppf-fm-tbju counseling. CT CT Job ID: [id number]/imx documented in this encounter Plan of Treatment Upcoming Encounters Date Type Specialty Care Team Description 12/26/2021 Office Visit Cardiovascular Disease Maritza Currie M.D. [address] [place] [address] [phone] (Wo rk) 01/16/2022 Appointment Radiology Vignesh Currie M.D. [address] [place] [address] [phone] (Wo rk) 01/16/2022 Appointment Cardiovascular Disease Maritza Currie M.D. [address] [place] [address] [phone] (Jean rk) 01/16/2022 Appointment Radiology Vignesh Currie M.D. [address] [place] [address] [phone] ([place]) 01/16/2022 Appointment Cardiovascular Disease Maritza Currie M.D. [address] [place] [address] [phone] ([place]) Scheduled Referrals Name Type Priority Associated Order [...]
--- OUTSIDE RECORDS SUMMARY | 2021-12-10 15:05 | XMS_ITS | Encounter Summary ---
:1945 Author Organization [facility] Address [address] [place] [address] Care Team Providers Name Role Phone Unavailable Primary Care Provider Unavailable Encounter Details Date Type Department Care Team Description 06/29/2018 Hospital Encounter Department of Adriane Patel, [place] Inguinal Radiology in [place], [place] 1705 [facility] [address] [place] [address] [phone] Social History Tobacco Use Types Packs/Day Years [...] (eight) hours as needed for anxiety. ergocalciferol (DRISDOL) Take 50,000 Units 0 50,000 [...] daily. Take with food for heart health. lisinopril Take 2.5 mg by 0 06/26/2021 [...] Visit Cardiovascular Disease Maritza Currie M.D. [address] [place] [address] [phone] ([place]) 01/16/2022 Appointment Radiology Vignesh Currie M.D. [address] [place] [address] [phone] ([place]) 01/16/2022 Appointment Cardiovascular Disease Maritza Currie M.D. [address] [place] [address] [phone] ([place]) 01/16/2022 Appointment Radiology Vignesh Currie M.D. [address] [place] [address] [phone] ([place]) 01/16/2022 Appointment Cardiovascular Disease Maritza Currie M.D. [address] [place] [address] [phone] ([place]) documented as of [...]
--- OUTSIDE RECORDS SUMMARY | 2021-12-10 15:05 | XMS_ITS | Encounter Summary ---
:1945 Author Organization [facility] Address [address] [place] [address] Care Team Providers Name Role Phone Unavailable Primary Care Provider Unavailable Reason for Referral Specialty Diagnoses / Procedures Referred By Contact Refer red To Contact Jasmeet Mccormick M.D. [facility] Region [address] [place] [phone] Referral ID Status Reason Start Date Expiration Date Visits Requ ested Visits Authorized [id number] Encounter Details Date Type Department Care Team Description 04/18/2020 Orders Only [facility] PCP [facility] Sa pamela Elkins M.D. 200 [place], [place] [address] [phone] (Wo rk) Social History [...] Cardiovascular Disease Maritza Currie M.D. [address] [place], [place] 55 [phone] (Wo rk) 01/16/2022 Appointment Radiology Vignesh Currie M.D. [address] [place] [address] [phone] (Wo rk) 01/16/2022 Appointment Cardiovascular Disease Maritza Currie M.D. [address] [place] [address] [phone] (Wo rk) 01/16/2022 Appointment Radiology Vignesh Currie M.D. [address] [place] [address] [phone] (Wo rk) 01/16/2022 Appointment Cardiovascular Disease Maritza Currie M.D. [address] [place] [address] [phone] (Wo rk) Scheduled Referrals Name Type Priority Associated Order Schedule Diagnoses Covid immunization Outpatient Referral Routine Ex pected: office visit Initial 021 (Approximate), Expires: 04/18/2021 documented as of this encounter Visit Diagnoses Not on filedocumented in this encounter Additional Health Concerns Assessment Noted Time PHQ-9 Depression Total Score: 7 06/21/2014 9:20 AM CDT documented as of this encounter
--- OUTSIDE RECORDS SUMMARY | 2021-12-10 15:05 | XMS_ITS | Encounter Summary ---
:1945 Author Organization [facility] Address [address] [place] [address] Care Team Providers Name Role Phone Unavailable Primary Care Provider Unavailable Reason for Visit Reason Comments Eye Drainage Appointment Request (Routine) - Closed Specialty Diagnoses / Procedures Referred By Contact Refer red To Contact Ophthalmology Referral ID Status Reason Start Date Expiration Date Visits Requ ested Visits Authorized [id number] Closed 12/16/2018 12/16/2019 1 Encounter Details Date Type Department Care Team Description 12/17/2018 Office Visit Department of Janak Hadley Blephari tis Left (Primary Dx); Ophthalmology in [place] M.D. Blepharitis [address] [phone] Social History Tobacco Use Types Packs/Day Years [...] in [address] Cruz in [place]. I would be happy to see her back at any time per her or Dr. Cruz's discretion. documented in this encounter Plan of Treatment Upcoming Encounters Date Type Specialty Care Team Description 12/26/2021 Office Visit Cardiovascular Disease Maritza Currie M.D. [address] [place] [address] [phone] (Wo rk) 01/16/2022 Appointment Radiology Vignesh Currie M.D. [address] [place] [address] [phone] (Wo rk) 01/16/2022 Appointment Cardiovascular Disease Maritza Currie M.D. [address] [place] [address] [phone] (Wo rk) 01/16/2022 Appointment Radiology Vignesh Currie M.D. [address] [place] [address] [phone] (Wo rk) 01/16/2022 Appointment Cardiovascular Disease Maritza Currie M.D. [address] [place] [address] [phone] (Wo rk) documented as of this encounter Visit Diagnoses Diagnosis Blepharitis Left - Primary Blepharitis Right documented in this encounter Additional Health Concerns Assessment Noted Time PHQ-9 Depression Total Score: 7 06/21/2014 9:20 AM CDT documented as of this encounter
--- OUTSIDE RECORDS SUMMARY | 2021-12-10 15:05 | XMS_ITS | Encounter Summary ---
:1945 Author Organization [facility] Address [address] [place] [address] Care Team Providers Name Role Phone Unavailable Primary Care Provider Unavailable Encounter Details Date Type Department Care Team Description 02/26/2018 Nurse Triage Department of Marizol Paul R.N. Medicine, [facility], [address] [place] [address] in [place], [place] [address] [place] [phone] [place] [address] [phone] Social History Tobacco Use Types Packs/Day Years [...] Visit Cardiovascular Disease Maritza Currie M.D. [address] [place] [address] 55 [phone] ([place]) 01/16/2022 Appointment Radiology Vignesh Currie M.D. [address] [place] [address] [phone] ([place]) 01/16/2022 Appointment Cardiovascular Disease Maritza Currie M.D. [address] [place] [address] [phone] ([place]) 01/16/2022 Appointment Radiology Vignesh Currie M.D. [address] [place], [place] 55 [phone] (Wo rk) 01/16/2022 Appointment Cardiovascular Disease Maritza Currie M.D. [address] [place], [place] 55 [phone] ([place]) documented as of this encounter Visit Diagnoses Not on filedocumented in this encounter Additional Health Concerns Assessment Noted Time PHQ-9 Depression Total Score: 7 06/21/2014 9:20 AM CDT documented as of this encounter
--- OUTSIDE RECORDS SUMMARY | 2021-12-10 15:05 | XMS_ITS | Encounter Summary ---
:1945 Author Organization [facility] Address [address] [place] [address] Care Team Providers Name Role Phone Unavailable Primary Care Provider Unavailable Encounter Details Date Type Department Care Team Description 07/27/2018 Hospital Encounter Department of Vignesh Currie lara Artery Disease [place] [facility]; Laboratory Medicine Tamia Lance. Diabetes Mellitus Type 2 (HCC); in [place] [phone] [facility] [phone] [place], [place] (Work) [phone] Social History Tobacco Use [...] Visit Cardiovascular Disease Maritza Currie M.D. 200 [place], [place] [phone] ([place]) 01/16/2022 Appointment Radiology Vignesh Currie M.D. 200 [place], [place] 55 [phone] ([place]) 01/16/2022 Appointment Cardiovascular Disease Maritza Currie M.D. [address] [place] [address] [phone] ([place]) 01/16/2022 Appointment Radiology Vignesh Currie M.D. 200 [place], [place] 55 [phone] ([place]) 01/16/2022 Appointment Cardiovascular Disease Maritza Currie M.D. [address] [place], [place] 55 [phone] (Wo rk) documented as of this encounter Procedures Procedure Name Priority Date/Time Associated Diagnosis Comme nts LIPID PANEL, S Routine 07/27/2018 10:23 AM Coronary Artery Res ults for this CDT Disease [place] [facility] essel procedure are in the Diabetes [...] City/State/ZIP Code Phon e Number [facility]- [address] [place] [address] [place] [address] [facility] documented in this encounter Visit Diagnoses Diagnosis Coronary Artery Disease [place] [facility] Diabetes Mellitus Type 2 (HCC) [place] documented in this encounter Additional Health Concerns Assessment Noted Time PHQ-9 Depression Total Score: 7 06/21/2014 9:20 AM CDT documented as of this encounter
--- OUTSIDE RECORDS SUMMARY | 2021-12-10 15:05 | XMS_ITS | Encounter Summary ---
:1945 Author Organization [facility] Address [address] [place] [address] Care Team Providers Name Role Phone Unavailable Primary Care Provider Unavailable Reason for Visit Reason Comments Follow-up Encounter Details Date Type Department Care Team Description 02/24/2019 Office Visit Department of Janak Hadley Blephari tis Left (Primary Dx); Ophthalmology in [place] M.D. Blepharitis [address] [phone] Social History Tobacco Use Types Packs/Day Years [...] year complete exam, sooner if any issues. [employer]IV[employer] documented in this encounter Plan of Treatment Upcoming Encounters Date Type Specialty Care Team Description 12/26/2021 Office Visit Cardiovascular Disease Maritza Currie M.D. [address] [place] [address] [phone] (Wo rk) 01/16/2022 Appointment Radiology Vignesh Currie M.D. [address] [place] [address] [phone] (Wo rk) 01/16/2022 Appointment Cardiovascular Disease Maritza Currie M.D. [address] [place] [address] [phone] (Wo rk) 01/16/2022 Appointment Radiology Vignesh Currie M.D. [address] [place] [address] [phone] (Wo rk) 01/16/2022 Appointment Cardiovascular Disease Maritza Currie M.D. [address] [place] [address] [phone] (Wo rk) documented as of this encounter Visit Diagnoses Diagnosis Blepharitis Left - Primary Blepharitis Right documented in this encounter Additional Health Concerns Assessment Noted Time PHQ-9 Depression Total Score: 7 06/21/2014 9:20 AM CDT documented as of this encounter
--- OUTSIDE RECORDS SUMMARY | 2021-12-10 15:05 | XMS_ITS | Encounter Summary ---
:1945 Author Organization [facility] Address [address] [place] [address] Care Team Providers Name Role Phone Unavailable Primary Care Provider Unavailable Encounter Details Date Type Department Care Team Description 01/07/2019 Clinical Communication Department of Josi Pittman, Ophthalmology in [address] [phone] Social History Tobacco Use Types Packs/Day Years [...] Visit Cardiovascular Disease Maritza Currie M.D. 200 [place], [place] 55 [phone] ([place]) 01/16/2022 Appointment Radiology Vignesh Currie M.D. [address] [place] [address] 55 [phone] ([place]) 01/16/2022 Appointment Cardiovascular Disease Maritza Currie M.D. [address] [place], [place] 55 [phone] (Wo rk) 01/16/2022 Appointment Radiology Vignesh Currie M.D. [address] [place], [place] 55 [phone] (Wo rk) 01/16/2022 Appointment Cardiovascular Disease Maritza Currie M.D. [address] [place], [place] 55 [phone] (Wo rk) documented as of this encounter Visit Diagnoses Not on filedocumented in this encounter Additional Health Concerns Assessment Noted Time PHQ-9 Depression Total Score: 7 06/21/2014 9:20 AM CDT documented as of this encounter
--- OUTSIDE RECORDS SUMMARY | 2021-12-10 15:05 | XMS_ITS | Encounter Summary ---
:1945 Author Organization [facility] Address [address] [place] [address] Care Team Providers Name Role Phone Unavailable Primary Care Provider Unavailable Reason for Referral Outpatient (Routine) - Closed Specialty Diagnoses / Procedures Referred By Contact Refer red To Contact Cardiovascular Disease Vignesh Currie [facility] [place] [facility] M.D. [address] [place] [phone] Referral ID Status Reason Start Date Expiration Date Visits Requ ested Visits Authorized [id number] Closed 03/17/2019 03/16/2020 1 1 INE SETTER AUTOMATIC Reason for Visit Reason Comments Follow-up Outpatient (Routine) - Closed Specialty Diagnoses / Procedures Referred By Contact Refer red To Contact Cardiovascular Disease Vignesh Currie [facility] [place] [facility] M.D. [address] [place] [phone] Referral ID Status Reason Start Date Expiration Date Visits Requ ested Visits Authorized [id number] Closed 07/29/2018 07/29/2019 1 1 Encounter Details Date Type Department Care Team Description 03/17/2019 Office Visit Department of Vignesh Currie Diabetes Me llitus Type 2 (HCC) (Primary Dx); Cardiovascular Diseases Lee Lance Hyperlipidemia Mixed in [place] [address] [address] [place], [place] [phone] (Work) [phone] Social History Tobacco Use Types Packs/Day Years [...] Comments Blood Pressure 120/70 03/17/2019 8:59 AM MACHINE SETTER AUTOMATIC Pulse 75 03/17/2019 8:59 AM apical regula r MACHINE [employer]TER [employer] Temperature - - Respiratory Rate 16 03/17/2019 8:59 AM MACHINE SETTER AUTOMATIC Oxygen Saturation - - Inhaled Oxygen Concentration - - Weight 82.7 kg (182 lb 5.1 03/17/2019 8:59 AM oz) MACHINE SETTER [employer]OMAT[employer] Height 157 cm (5' 1.81) 03/17/2019 8:59 AM MACHINE SETTER [employer]OMATIC Body Mass Index 33.55 03/17/2019 8:59 AM MACHINE SETTER [employer]OMATIC documented in this encounter Progress Notes Vignesh Currie M.D. - 03/17/2019 8:38 AM CST SUBJECTIVE CHIEF COMPLAINT/REASON FOR VISIT Mixed hyperlipidemia, history of coronary artery disease. HISTORY OF PRESENT ILLNESS Marcial is a pleasant 73-year-old female from [place], [place]. She is known to me from [...] the clinic visit notes with her recent brazer induction. Unfortunately, her hemoglobin A1c has risen further [...] Thus, she has been on high dose icuj-ixi-jkwawsn fish oil to achieve an EPA/DHA dose of 4 g.Hopefully once Vascepa achieves guideline recommendation, we can make another attempt with her insurance company. Her hemoglobin A1c unfortunately has risen further to 8.8%. This is based on her outpatient clinic visit note in [facility]. She was advised to consider Ozempic but she is not interested inthis due to a study she read involving rats and increased tumors. She was previously on metformin, but this was discontinued due to borderline kidney function. I do not think that her mild renal insufficiency precludes the use of metformin and I have suggested she discuss this further with her brazer induction. I recognize that metformin by itself would not dramatically alter her hemoglobin A1c levels, nonetheless, prior RCT data has shown survival benefit on metformin. Twenty-five minutes in consultation with greater than 50% in direct cynn-aw-lamq counseling. Vignesh Currie M.D. CT CT Job ID: [id number] INE SETTER [employer]OM[employer] documented in this encounter Plan of Treatment Upcoming Encounters Date Type Specialty Care Team Description 12/26/2021 Office Visit Cardiovascular Disease Maritza Currie M.D. [address] [place] [address] [phone] (Wo rk) 01/16/2022 Appointment Radiology Vignesh Currie M.D. [address] [place] [address] [phone] (Wo rk) 01/16/2022 Appointment Cardiovascular Disease Maritza Currie M.D. [address] [place] [address] [phone] (Wo rk) 01/16/2022 Appointment Radiology Vignesh Currie M.D. [address] [place] [address] [phone] (Wo rk) 01/16/2022 Appointment Cardiovascular Disease Maritza Currie M.D. [address] [place] [address] [phone] (Wo rk) Scheduled Referrals Name Type Priority Associated Order Schedule Diagnoses Cardiovascular Disease Outpatient Referral Routine Expected: office visit (clinic) 2019 (Approximate), Expires: 03/17/2022 documented as of this encounter Procedures Procedure Name Priority Date/Time Associated Diagnosis Comme nts LIPID PANEL, S Routine 03/17/2019 9:31 AM Diabetes Mellitus Re sults for this MACHINE SETTER AUTOMATIC Type 2 (HCC) procedure are in the Hyperlipidemia Mixed results section. documented in this encounter Results (ABNORMAL) Lipid Panel (03/17/2019 9:31 AM MACHINE SETTER AUTOMATIC) P athologist Signature Cholesterol, 160 mg/dL 03/17/2019 CNFL Total 9:51 AM MACHINE SETTER [employer]OMATIC Comment: ----REFERENCE VALUE---- Desirable: < 200 Borderline high: 200 - 239 High: > or = 240 Triglycerides 195 (H) mg/dL 03/17/2019 9:51 AM MACHINE SETTER AUTOMATIC CNF L Comment: ----REFERENCE VALUE---- Normal: <150 Borderline high: 150-199 High: 200-499 Very high: > or =500 Cholesterol, HDL 49 (L) >=50 mg/dL 03/17/2019 9:51 AM MACHINE SETTER AUTOMATIC CNFL Calculated LDL 72 mg/dL 03/17/2019 9:51 AM MACHINE SETTER AUTOMATIC CN [place] Comment: ----REFERENCE VALUE---- Desirable: <100 Above Desirable: 100-129 Borderline high: 130-159 High: 160-189 Very high: > or =190 Cholesterol, Non-HDL, Calculated 111 mg/dL 020 9:51 AM MACHINE SETTER AUTOMATIC CNFL Comment: ----REFERENCE VALUE---- Desirable: <130 Above Desirable: 130-159 Borderline high: 160-189 High: 190-219 Very high: > or =220 Specimen Anatomical Collection Method Collection Time Receive d Time (Source) Location / / Volume Laterality Blood (Blood, 03/17/2019 9:31 AM 03/17/19 20 9:31 Venous) MACHINE SETTER AUTOMATIC AM MACHINE SETTER AUTOMATIC Vignesh Currie M.D. LAB BLOOD ADD-ON Performing Organization Address City/State/ZIP Code Phon e Number [facility]- [address] [place] [address] [place] [address] [place] [address] System in [place] [address] [address] documented in this encounter Visit Diagnoses Diagnosis Diabetes Mellitus Type 2 (HCC) - Primary Hyperlipidemia Mixed documented in this encounter Additional Health Concerns Assessment Noted Time PHQ-9 Depression Total Score: 7 06/21/2014 9:20 AM CDT documented as of this encounter
--- OUTSIDE RECORDS SUMMARY | 2021-12-10 15:05 | XMS_ITS | Encounter Summary ---
:1945 Author Organization [facility] Address [address] [place] [address] Care Team Providers Name Role Phone Unavailable Primary Care Provider Unavailable Encounter Details Date Type Department Care Team Description 01/14/2018 Nurse Triage Department of [facility] Kyra Howe R.N. Medicine, [facility], in [address] [place] [address] [place] [address] [place] [address] [phone] Social History Tobacco Use Types Packs/Day Years [...] Visit Cardiovascular Disease Maritza Currie M.D. [address] [place] [address] [phone] ([place]) 01/16/2022 Appointment Radiology Vignesh Currie M.D. [address] [place] [address] [phone] ([place]) 01/16/2022 Appointment Cardiovascular Disease Maritza Currie M.D. [address] [place] [address] [phone] ([place]) 01/16/2022 Appointment Radiology Vignesh Currie M.D. [address] [place], [place] [phone] (Wo rk) 01/16/2022 Appointment Cardiovascular Disease Maritza Currie M.D. [address] [place], [place] [phone] ([place]) documented as of this encounter Visit Diagnoses Not on filedocumented in this encounter Additional Health Concerns Assessment Noted Time PHQ-9 Depression Total Score: 7 06/21/2014 9:20 AM CDT documented as of this encounter
--- OUTSIDE RECORDS SUMMARY | 2021-12-10 15:05 | XMS_ITS | Encounter Summary ---
:1945 Author Organization [facility] Address [address] [place] [address] Care Team Providers Name Role Phone Unavailable Primary Care Provider Unavailable Encounter Details Date Type Department Care Team Description 05/07/2018 Clinical Support Department of Ai Patel C.N.PJairo [address] [place] [address] Vertigo [facility] Rehabilitation Luciana Ferguson, P.T. [address] [place] [phone] Paroxysmal Services in [address] [phone] Social History Tobacco Use Types Packs/Day Years [...] as of this encounter Progress Notes Luciana Ferguson, P.T. - 05/07/2018 10:30 AM CDT Physical [...] of motion is within normal limits. Hallpike Breckenridge testing was positive for left posterior canal [...] 20 min Functional G-code Worksheet Luciana Ferguson P.T. documented in this encounter Plan of Treatment Upcoming Encounters Date Type Specialty Care Team Description 12/26/2021 Office Visit Cardiovascular Disease Maritza Currie M.D. [address] [place] [address] [phone] ([place]) 01/16/2022 Appointment Radiology Vignesh Currie M.D. [address] [place] [address] [phone] ([place]) 01/16/2022 Appointment Cardiovascular Disease Maritza Currie M.D. [address] [place] [address] [phone] ([place]) 01/16/2022 Appointment Radiology Vignesh Currie M.D. [address] [place] [address] [phone] ([place]) 01/16/2022 Appointment Cardiovascular Disease Maritza Currie M.D. 200 [place], [place] [phone] ([place]) documented as of this encounter Visit Diagnoses Diagnosis Vertigo Benign Paroxysmal Positional Rig ht documented in this encounter Additional Health Concerns Assessment Noted Time PHQ-9 Depression Total Score: 7 06/21/2014 9:20 AM CDT documented as of this encounter
--- OUTSIDE RECORDS SUMMARY | 2021-12-10 15:05 | XMS_ITS | Encounter Summary ---
:1945 Author Organization [facility] Address [address] [place] [address] Care Team Providers Name Role Phone Unavailable Primary Care Provider Unavailable Encounter Details Date Type Department Care Team Description 06/29/2019 Clinical Communication Department of Josi Pittman, Ophthalmology in [address] [phone] Social History Tobacco Use Types Packs/Day Years [...] injectable medication. She is followed by an after school counselor. Her last a1c was 8.5 on 06/01/19. [...] references were used: nursing clinical judgement and [email or web address] Education provided: patient/caller able to teach back Disposition/Recommendation: self-care as stated above appropriate at this time, patient encouraged to call back with questions Caller agreeable to plan of care: yes The following individuals participated in today???s interaction: patient Press Helper used: no Additional concerns addressed: none documented in this encounter Plan of Treatment Upcoming Encounters Date Type Specialty Care Team Description 12/26/2021 Office Visit Cardiovascular Disease Maritza Currie M.D. [address] [place] [address] [phone] ([place]) 01/16/2022 Appointment Radiology Vignesh Currie M.D. [address] [place] [address] [phone] ([place]) 01/16/2022 Appointment Cardiovascular Disease Maritza Currie M.D. [address] [place] [address] [phone] ([place]) 01/16/2022 Appointment Radiology Vignesh Currie M.D. [address] [place] [address] [phone] ([place]) 01/16/2022 Appointment Cardiovascular Disease Maritza Currie M.D. [address] [place] [address] [phone] ([place]) documented as of this encounter Visit Diagnoses Not on filedocumented in this encounter Additional Health Concerns Assessment Noted Time PHQ-9 Depression Total Score: 7 06/21/2014 9:20 AM CDT documented as of this encounter
--- OUTSIDE RECORDS SUMMARY | 2021-12-10 15:05 | XMS_ITS | Encounter Summary ---
:1945 Author Organization [facility] Address [address] [place] [address] Care Team Providers Name Role Phone Unavailable Primary Care Provider Unavailable Reason for Visit Reason Comments Follow-up Outpatient (Routine) - Closed Specialty Diagnoses / Procedures Referred By Contact Refer red To Contact Cardiovascular Disease Vignesh Currie [facility] [place] [facility] M.D. [address] [place] [phone] Referral ID Status Reason Start Date Expiration Date Visits Requ ested Visits Authorized [id number] Closed 11/03/2019 11/02/2020 1 1 Encounter Details Date Type Department Care Team Description 12/15/2019 Office Visit Department of Vignesh Currie Diabetes Me llitus Type 2 (HCC) (Primary Dx); Cardiovascular Diseases Lee Lance Coronary Stent Status Post; in [address] Hyperlipidemia Mixed [place] [address] [address] [place], [place] [phone] (Work) [phone] Social History Tobacco Use Types Packs/Day Years [...] Marcial is a pleasant 74-year-old female from [place], [place]. She is known to me from [...] October. 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 CT CT Job ID: [id number] documented in this encounter Plan of Treatment Upcoming Encounters Date Type Specialty Care Team Description 12/26/2021 Office Visit Cardiovascular Disease Maritza Currie M.D. [address] [place] [address] [phone] (Wo rk) 01/16/2022 Appointment Radiology Vignesh Currie M.D. [address] [place] [address] [phone] (Wo rk) 01/16/2022 Appointment Cardiovascular Disease Maritza Currie M.D. [address] [place] [address] [phone] (Wo rk) 01/16/2022 Appointment Radiology Vignesh Currie M.D. [address] [place] [address] [phone] (Wo rk) 01/16/2022 Appointment Cardiovascular Disease Maritza Currie M.D. [address] [place] [address] [phone] (Wo rk) documented as of this encounter Visit Diagnoses Diagnosis Diabetes Mellitus Type 2 (HCC) - Primary Coronary Stent Status Post Hyperlipidemia Mixed documented in this encounter Additional Health Concerns Assessment Noted Time PHQ-9 Depression Total Score: 7 06/21/2014 9:20 AM CDT documented as of this encounter
--- OUTSIDE RECORDS SUMMARY | 2021-12-10 15:05 | XMS_ITS | Encounter Summary ---
:1945 Author Organization [facility] Address [address] [place] [address] Care Team Providers Name Role Phone Unavailable Primary Care Provider Unavailable Reason for Visit Reason Onset Date Comments Medical Information 01/24/2019 clarification on ble pharitis information Encounter Details Date Type Department Care Team Description 01/24/2019 Clinical Department of Dorina Bucio, Medical Infor damian Communication Ophthalmology in [facility] Shahla (maryann fication on [place], [place] blepharitis [address] [place] [address] information) [place] [address] Social History Tobacco Use Types [...] this encounter Miscellaneous Notes Telephone Encounter - oDrina Bucio, R.N. - 01/24/2019 3:28 PM CST Abbie- nurse at [facility]- called on behalf of this patient; asking [...] and to discuss with any eye doctor. 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 [address] [place] [address] [phone] (Wo rk) 01/16/2022 Appointment Radiology Vignesh Currie M.D. [address] [place] [address] [phone] (Wo rk) 01/16/2022 Appointment Cardiovascular Disease Maritza Currie M.D. [address] [place] [address] [phone] (Wo rk) 01/16/2022 Appointment Radiology Vignesh Currie M.D. [address] [place] [address] [phone] (Wo rk) 01/16/2022 Appointment Cardiovascular Disease Maritza Currie M.D. [address] [place] [address] [phone] (Wo rk) documented as of this encounter Visit Diagnoses Not on filedocumented in this encounter Additional Health Concerns Assessment Noted Time PHQ-9 Depression Total Score: 7 06/21/2014 9:20 AM CDT documented as of this encounter
--- OUTSIDE RECORDS SUMMARY | 2021-12-10 15:05 | XMS_ITS | Encounter Summary ---
:1945 Author Organization [facility] Address [address] [place] [address] Care Team Providers Name Role Phone Unavailable Primary Care Provider Unavailable Encounter Details Date Type Department Care Team Description 08/03/2017 Hospital Encounter Department of Olu Escamilla lipidemia Laboratory Medicine in Erik Jean-Baptiste M.D. [place], [address] [place] [address] [phone] (Work) [phone] Social History Tobacco Use Types Packs/Day Years [...] 20 mg by mouth 0 tablet daily. ASPIRIN [...] Visit Cardiovascular Disease Maritza Currie M.D. [address] [place] [address] 55 [phone] ([place]) 01/16/2022 Appointment Radiology Vignesh Currie M.D. [address] [place] [address] [phone] ([place]) 01/16/2022 Appointment Cardiovascular Disease Maritza Currie M.D. [address] [place] [address] [phone] (Jean aneg[place]) 01/16/2022 Appointment Radiology Vignesh Currie M.D. [address] [place] [address] 55 [phone] ([place]) 01/16/2022 Appointment Cardiovascular Disease Maritza Currie M.D. [address] [place] [address] [phone] ([place]) documented as of this encounter [...] athologist Signature Cholesterol, 258 (H) mg/dL 08/03/2017 [facility] Total 9:56 AM CDT [facility] Comment: ----REFERENCE VALUE---- Desirable: < 200 Borderline high: 200 - 239 High: > or = 240 Triglycerides 149 mg/dL 08/03/2017 9:56 AM CDT [facility] Comment: ----REFERENCE VALUE---- Normal: <150 Borderline high: 150-199 High: 200-499 Very high: > or =500 Cholesterol, HDL, S 62 >=50 mg/dL 08/03/2017 9:56 AM CDT [facility] Calculated LDL 166 (H) mg/dL 08/03/2017 9:56 AM CDT [facility] Comment: ----REFERENCE VALUE---- Desirable: <100 Above Desirable: 100-129 Borderline high: 130-159 High: 160-189 Very high: > or =190 Cholesterol, Non-HDL, 196 (H) mg/dL 08/03/2017 9:56 AM CDT [facility] Comment: ----REFERENCE VALUE---- Desirable: <130 Above Desirable: 130-159 Borderline high: 160-189 High: 190-219 Very high: > or =220 Specimen Anatomical Collection Method Collection Time Receive d Time (Source) Location / / Volume Laterality Blood 08/03/2017 9:11 AM 8 9:12 CDT AM CDT Erik Hayes M.D. LAB BLOOD ADD-ON Performing Organization Address City/State/ZIP Code Phon e Number [facility]- [id number] [address] [place] [facility] (ABNORMAL) BMP (Basic Metabolic Panel) (08/03/2017 9:11 AM [facility]) Analysis Performed At [facility] Time Signature Potassium, S 3.9 3.6 - 5.2 08/03/2017 [facility] mmol/L 9:56 AM [facility] Sodium, S 143 135 - 145 08/03/2017 [facility] mmol/L 9:56 AM [facility] Chloride, S 106 98 - 107 08/03/2017 [facility] mmol/L 9:56 AM [facility] Bicarbonate, S 25 22 - 29 08/03/2017 [facility] mmol/L 9:56 AM [facility] Anion Gap 12 7 - 15 08/03/2017 [facility] 9:56 AM [facility] BUN (Blood Urea 27 (H) 6 - 21 08/03/2017 [facility] Nitrogen), S mg/dL 9:56 AM [facility] Creatinine 1.27 (H) 0.59 - 08/03/2017 [facility] 1.04 mg/dL 9:56 AM [facility] eGFR-Non 42 (L) >=60 08/03/2017 [facility] Black/ mL/min/BSA 9:56 AM [facility] Comment: ----ADDITIONAL INFORMATION---- Estimated GFR calculated using the 2009 CKD_EPI creatinine equation. eGFR-Black/ 49 (L) >=60 mL/min/BSA 08/03/2017 9:56 AM [facility] Comment: ----ADDITIONAL INFORMATION---- Estimated GFR calculated using the 2009 CKD_EPI creatinine equation. Calcium, Total, S 9.8 8.8 - 10.2 mg/dL 08/03/2017 9 :56 AM [facility] Glucose, S 140 70 - 140 mg/dL 08/03/2017 9:56 AM [facility] Specimen Anatomical Collection Method Collection Time Receive d Time (Source) Location / / Volume Laterality Blood 08/03/2017 9:11 AM 8 9:12 CDT AM CDT Erik Hayes M.D. LAB BLOOD ADD-ON Performing Organization Address City/State/ZIP Code Phon e Number [facility]- [id number] [address] [place] [facility] documented in this encounter Visit Diagnoses Diagnosis Hyperlipidemia documented in this encounter Additional Health Concerns Assessment Noted Time PHQ-9 Depression Total Score: 7 06/21/2014 9:20 AM CDT documented as of this encounter
--- OUTSIDE RECORDS SUMMARY | 2021-12-10 15:05 | XMS_ITS | Encounter Summary ---
:1945 Author Organization [facility] Address [address] [place] [address] Care Team Providers Name Role Phone Unavailable Primary Care Provider Unavailable Reason for Visit Reason Comments Advice Only Encounter Details Date Type Department Care Team Description 06/29/2019 Clinical Communication Department of Lilian Hadley Only Ophthalmology in [facility] [place] [address] [place] [address] [address] [place] [phone] Social History Tobacco Use [...] Visit Cardiovascular Disease Maritza Currie M.D. [address] [place] [address] [phone] (Wo rk) 01/16/2022 Appointment Radiology Vignesh Currie M.D. [address] [place] [address] [phone] (Wo rk) 01/16/2022 Appointment Cardiovascular Disease Maritza Currie M.D. [address] [place] [address] [phone] (Wo rk) 01/16/2022 Appointment Radiology Vignesh Currie M.D. [address] [place] [address] [phone] (Wo rk) 01/16/2022 Appointment Cardiovascular Disease Maritza Currie M.D. [address] [place] [address] [phone] (Wo rk) documented as of this encounter Visit Diagnoses Not on filedocumented in this encounter Additional Health Concerns Assessment Noted Time PHQ-9 Depression Total Score: 7 06/21/2014 9:20 AM CDT documented as of this encounter
--- OUTSIDE RECORDS SUMMARY | 2021-12-10 15:05 | XMS_ITS | Encounter Summary ---
:1945 Author Organization [facility] Address [address] [place] [address] Care Team Providers Name Role Phone Unavailable Primary Care Provider Unavailable Encounter Details Date Type Department Care Team Description 07/27/2018 Hospital Encounter Department of Jenny Hayes, Olu lipidemia; Radiology in [place] Arthritis Rheumatoid (HCC); [place], [place] [address] [facility] Coronary Artery Disease [place] Vessel; [address] [place] [address] Diabetes Mellitus Type 2 (HC [place]) [place] [phone] Social History Tobacco Use Types Packs/Day [...] Visit Cardiovascular Disease Maritza Currie M.D. 200 [place], [place] [phone] ([place]) 01/16/2022 Appointment Radiology Vignesh Currie M.D. 200 [place], [place] [phone] ([place]) 01/16/2022 Appointment Cardiovascular Disease Maritza Currie M.D. 200 [place], [place] [phone] ([place]) 01/16/2022 Appointment Radiology Vignesh Currie M.D. 200 [place], [place] [phone] ([place]) 01/16/2022 Appointment Cardiovascular Disease Maritza Currie M.D. [address] [place], [place] [phone] (Wo rk) documented as of this encounter Procedures Procedure Name Priority Date/Time Associated Diagnosis Comme nts ECG Routine 07/27/2018 10:08 AM Hyperlipidem ia Results for this CDT Arthritis Rheumatoid procedu re are in the (HCC) results section. Coronary Artery Disease [place] V essel Diabetes Mellitus Type 2 (HCC) documented in this encounter Results ECG 12 Lead (07/27/2018 10:08 AM CDT) P athologist Signature Ventricular Rate 83 BPM MUSE ECG/Min TN Interval 144 ms MUSE QRSD Interval 84 ms MUSE QT Interval 362 ms MUSE QTC Interval 425 ms MUSE P [place] 62 degrees MUSE R [place] -20 degrees MUSE T Wave [place] 79 degrees MUSE Specimen Anatomical Collection Method [...] Hyperlipidemia Arthritis Rheumatoid (HCC) Coronary Artery Disease [place] Vessel Diabetes Mellitus Type 2 (HCC) documented in this encounter Additional Health Concerns Assessment Noted Time PHQ-9 Depression Total Score: 7 06/21/2014 9:20 AM CDT documented as of this encounter
--- OUTSIDE RECORDS SUMMARY | 2021-12-10 15:05 | XMS_ITS | Encounter Summary ---
:1945 Author Organization [facility] Address [address] [place] [address] Care Team Providers Name Role Phone Unavailable Primary Care Provider Unavailable Reason for Visit Reason Onset Date Comments Communication 12/10/2017 colonoscopy and egd needed Encounter Details Date Type Department Care Team Description 12/10/2017 Clinical Department of Magdalena Patel Communicatio n Communication Neurology in [place]. (colonoscopy and egd [address] needed) [address] [place] [phone] Social History Tobacco Use Types Packs/Day Years [...] EGD/Colonoscopy. 12/14/17la. Telephone Encounter - Magdalena Patel RJairoNJairo - 12/14/2017 10:31 AM CDT Please assist with scheduling appointments Telephone Encounter - Pradeep Noel M.D. - 12/14/2017 9:00 AM CDT Ordered! Split-dose GoLYTELY prep, because of her diabetes. Thanks. Alejandro Telephone Encounter - Magdalena Patel R.N. - 12/10/2017 2:19 PM CDT Fax from [place] in [place], Adriane Patel CNP , phone [phone], fax [phone] requesting EGD and colonoscopy. Dx listed is [...] Visit Cardiovascular Disease Maritza Currie M.D. 200 [place], [place] [phone] ([place]) 01/16/2022 Appointment Radiology Vignesh Currie M.D. [address] [place] [phone] ([place]) 01/16/2022 Appointment Cardiovascular Disease Maritza Currie M.D. [address] [place] [phone] ([place]) 01/16/2022 Appointment Radiology Vignesh Currie M.D. [address] [place] [address] [phone] ([place]) 01/16/2022 Appointment Cardiovascular Disease Maritza Currie M.D. [address] [place] [phone] ([place]) documented as of this encounter Visit Diagnoses Diagnosis Diarrhea - Primary Anemia documented in this encounter Additional Health Concerns Assessment Noted Time PHQ-9 Depression Total Score: 7 06/21/2014 9:20 AM CDT documented as of this encounter
--- OUTSIDE RECORDS SUMMARY | 2021-12-10 15:05 | XMS_ITS | Encounter Summary ---
:1945 Author Organization [facility] Address [address] [place] [address] Care Team Providers Name Role Phone Unavailable Primary Care Provider Unavailable Encounter Details Date Type Department Care Team Description 01/07/2019 Clinical Communication Department of Josi Pittman, Ophthalmology in [address] [address] [phone] Social History Tobacco Use Types Packs/Day Years [...] Telephone Encounter - Josi Pittman, R.N. - 01/07/2019 9:50 AM CST Specialty Surgical [...] eyes quit watering or tearing. Intervention This board writer educated patient on dry eye syndrome, especially during the winter months when we have alot of dry air in our homes and cars. Patient may need to faithfully use lubricating tears during the winter for this reason. This board writer directed patient to restart the artificial tears, safe to use 4 times daily. To continue with the lid soaks and lid scrubs. This board writer explained that it cantake at least a week to notice less blurry vision after faithfully using the artificial tears, faithfully and daily. Also, this board writer suggested to add humidification to patient's home. Has patient called or presented with the same symptom previously yes - 12/17/18 Is patient experiencing other symptoms: no The following references were used: nursing clinical judgement and other telephone triage brigg's pages [phone] Education provided: patient/caller able to teach back Disposition/Recommendation: self-care as stated above appropriate at this time, patient encouraged to call back with questions Caller agreeable to plan of care: yes The following individuals participated in today???s interaction: patient Rail Express Clerk used: no Additional concerns addressed: none ERIOLOGIST MEDICAL documented in this encounter Plan of Treatment Upcoming Encounters Date Type Specialty Care Team Description 12/26/2021 Office Visit Cardiovascular Disease Maritza Currie M.D. 200 [place], [place] [phone] ([place]) 01/16/2022 Appointment Radiology Vignesh Currie M.D. [address] [place], [place] [phone] ([place]) 01/16/2022 Appointment Cardiovascular Disease Maritza Currie M.D. [address] [place], [place] [phone] ([place]) 01/16/2022 Appointment Radiology Vignesh Currie M.D. [address] [place], [place] [phone] ([place]) 01/16/2022 Appointment Cardiovascular Disease Maritza Currie M.D. [address] [place], [place] [phone] ([place]) documented as of this encounter Visit Diagnoses Not on filedocumented in this encounter Additional Health Concerns Assessment Noted Time PHQ-9 Depression Total Score: 7 06/21/2014 9:20 AM CDT documented as of this encounter
--- OUTSIDE RECORDS SUMMARY | 2021-12-10 15:05 | XMS_ITS | Encounter Summary ---
:1945 Author Organization [facility] Address [address] [place] [address] Care Team Providers Name Role Phone Unavailable Primary Care Provider Unavailable Reason for Referral Outpatient (Routine) - Closed Specialty Diagnoses / Procedures Referred By Contact Refer red To Contact Cardiovascular Disease Vignesh Currie [facility] S ABEBA Sandhu M.D. [address] [place] [address] Referral ID Status Reason Start Date Expiration Date Visits Requ ested Visits Authorized [id number] Closed 04/26/2018 04/26/2019 1 1 Reason for Visit Reason Comments Follow-up [place] patient. Shortness of Breath Outpatient (Routine) - Closed Specialty Diagnoses / Procedures Referred By Contact Refer red To Contact Cardiovascular Disease MARIA DEL ROSARIO Escamilla SE M N Phoebe Jean-Baptiste M.D. [address] [place] [address] Referral ID Status Reason Start Date Expiration Date Visits Requ ested Visits Authorized [id number] Closed 08/03/2017 08/03/2018 1 1 Encounter Details Date Type Department Care Team Description 04/26/2018 Office Visit Department of Vignesh Currie Coronary Ar wilbert Disease [place] Vessel (Primary Dx); Cardiovascular Diseases Lee Lance Diabetes Mellitus Type 2 (HCC); in [place] [address] [place] [address] [address] [place], [place] [phone] (Work) [phone] Social History Tobacco Use Types Packs/Day Years [...] Marcial is a pleasant 72-year-old female from [place], [place]. She has previously followed with my [...] me she underwent a Neurology workup at [facility] and was given a diagnosis of vertigo. [...] in consultation, greater than 50% in direct cybb-nc-gruy counseling. CT CT Job ID: [id number] documented in this encounter Plan of Treatment Upcoming Encounters Date Type Specialty Care Team Description 12/26/2021 Office Visit Cardiovascular Disease Maritza Currie M.D. [address] [place] [phone] ([place]) 01/16/2022 Appointment Radiology Vignesh Currie M.D. [address] [place] [phone] ([place]) 01/16/2022 Appointment Cardiovascular Disease Maritza Currie M.D. [address] [place] [phone] ([place]) 01/16/2022 Appointment Radiology Vignesh Currie M.D. [address] [place] [phone] ([place]) 01/16/2022 Appointment Cardiovascular Disease Maritza Currie M.D. [address] [place] [phone] ([place]) Scheduled Referrals Name [...] Address City/State/ZIP Code Phon e Number [facility] [address] [address] [facility] documented in this encounter Visit Diagnoses Diagnosis Coronary Artery Disease Venetie Vessel - Primary Diabetes Mellitus Type 2 (HCC) Vertigo documented in this encounter Additional Health Concerns Assessment Noted Time PHQ-9 Depression Total Score: 7 06/21/2014 9:20 AM CDT documented as of this encounter
--- OUTSIDE RECORDS SUMMARY | 2021-12-10 15:05 | XMS_ITS | Encounter Summary ---
:1945 Author Organization [facility] Address [address] [place] [address] Care Team Providers Name Role Phone Unavailable Primary Care Provider Unavailable Reason for Visit Reason Onset Date Comments Results 03/25/2019 Encounter Details Date Type Department Care Team Description 03/25/2019 Clinical Communication Department of Vignesh Currie Cardiovascular Diseases Lee Lance in [address] [address] [place], [place] [phone] (Work) [phone] Social History Tobacco Use Types Packs/Day Years [...] R.N. 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 [address] [place] [phone] ([place]) 01/16/2022 Appointment Radiology Vignesh Currie M.D. [address] [place] [phone] ([place]) 01/16/2022 Appointment Cardiovascular Disease Maritza Currie M.D. [address] [place] [phone] ([place]) 01/16/2022 Appointment Radiology Vignesh Currie M.D. [address] [place] [phone] ([place]) 01/16/2022 Appointment Cardiovascular Disease Maritza Currie M.D. [address] [place] [phone] ([place]) documented as of this encounter Visit Diagnoses Not on filedocumented in this encounter Additional Health Concerns Assessment Noted Time PHQ-9 Depression Total Score: 7 06/21/2014 9:20 AM CDT documented as of this encounter
--- OUTSIDE RECORDS SUMMARY | 2021-12-10 15:05 | XMS_ITS | Encounter Summary ---
:1945 Author Organization [facility] Address [address] [place] [address] Care Team Providers Name Role Phone Unavailable Primary Care Provider Unavailable Reason for Referral Outpatient (Routine) - Closed Specialty Diagnoses / Procedures Referred By Contact Refer red To Contact Cardiovascular Disease Vignesh Currie [facility] [place] M.D. [address] [place] [phone] Referral ID Status Reason Start Date Expiration Date Visits Requ ested Visits Authorized [id number] Closed 11/03/2019 11/02/2020 1 1 Reason for Visit Reason Comments Follow-up Outpatient (Routine) - Closed Specialty Diagnoses / Procedures Referred By Contact Refer red To Contact Cardiovascular Disease Vignesh Currie [facility] [place] M.D. [address] [place] [phone] Referral ID Status Reason Start Date Expiration Date Visits Requ ested Visits Authorized [id number] Closed 03/17/2019 03/16/2020 1 1 Encounter Details Date Type Department Care Team Description 11/03/2019 Office Visit Department of Vignesh Currie Diabetes Me llitus Type 2 (HCC) (Primary Dx); Cardiovascular Diseases Lee Lance Ischemic Heart Chronic Disease in [place], [address] [place] [id number] [place] [address] [address] [address] [place], [place] [phone] (Work) [phone] Social History Tobacco Use Types Packs/Day Years [...] Marcial is a pleasant 74-year-old female from [place], [place]. She is known to me from [...] recently restarted. 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 Vazquez solely through the [facility]. She has additional comorbidities of rheumatoid [...] Vignesh Currie M.D. CT CT Job ID: [id number] documented in this encounter Plan of Treatment Upcoming Encounters Date Type Specialty Care Team Description 12/26/2021 Office Visit Cardiovascular Disease Maritza Currie M.D. [address] [place] [phone] ([place]) 01/16/2022 Appointment Radiology Vignesh Currie M.D. [address] [place] [phone] ([place]) 01/16/2022 Appointment Cardiovascular Disease Maritza Currie M.D. [address] [place] [phone] ([place]) 01/16/2022 Appointment Radiology Vignesh Currie M.D. [address] [place] [phone] ([place]) 01/16/2022 Appointment Cardiovascular Disease Maritza Currie M.D. [address] [place] [phone] ([place]) Scheduled Referrals Name [...] Code Phon e Number [facility]- [address] [place] [address] [place] [address] [address] documented in this encounter Visit Diagnoses Diagnosis Diabetes Mellitus Type 2 (HCC) - Primary Ischemic Heart Chronic Disease documented in this encounter Additional Health Concerns Assessment Noted Time PHQ-9 Depression Total Score: 7 06/21/2014 9:20 AM CDT documented as of this encounter
--- OUTSIDE RECORDS SUMMARY | 2021-12-10 15:06 | XMS_ITS | Encounter Summary ---
:1945 Author Organization [facility] Address [address] [place] [address] Care Team Providers Name Role Phone Unavailable Primary Care Provider Unavailable Encounter Details Date Type Department Care Team Description 07/31/2015 Hospital Encounter HX [facility] Gail Ge M.D. [address] [phone] ([place]) Social History Tobacco [...] Summary-Paper Based CODING DATE: 08/06/2015 FINAL RW [facility] STATUS: * Discharged to [...] result in slightly different terminology. Coded By: AMLLORIE WARD Date Saved: 08/06/2015 02:36 pm Source: [facility] Document Id: [id number] documented in this encounter Plan of Treatment Upcoming Encounters Date Type Specialty Care Team Description 12/26/2021 Office Visit Cardiovascular Disease Maritza Currie M.D. [address] [place] [phone] ([place]) 01/16/2022 Appointment Radiology Vignesh Currie M.D. [address] [place] [phone] ([place]) 01/16/2022 Appointment Cardiovascular Disease Maritza Currie M.D. [address] [place] [phone] ([place]) 01/16/2022 Appointment Radiology Vignesh Currie M.D. [address] [place] [phone] ([place]) 01/16/2022 Appointment Cardiovascular Disease Maritza Currie M.D. [address] [place] [phone] ([place]) documented as of this encounter Visit Diagnoses Not on filedocumented in this encounter Additional Health Concerns Assessment Noted Time PHQ-9 Depression Total Score: 7 06/21/2014 9:20 AM CDT documented as of this encounter
--- OUTSIDE RECORDS SUMMARY | 2021-12-10 15:06 | XMS_ITS | Encounter Summary ---
:1945 Author Organization [facility] Address [address] [place] [address] Care Team Providers Name Role Phone Unavailable Primary Care Provider Unavailable Encounter Details Date Type Department Care Team Description 07/04/2015 Hospital Encounter HX [facility] Ne Liu M.D. [address] [place] [phone] ([place]) Social History Tobacco Use [...] by DI LONDON RN Health Assessment Med [facility] Reason for visit : Subsequential Annual Wellness Visit Languages : Italian Systolic Blood Pressure : 120 mmHg Diastolic [...] 14:45 CDT Pain Symptoms : No DI LONDONDHAVAL GIRARD - 07/04/2015 14:20 CDT JUAN Assessment Do [...] Apnea Clinical Score HTN Calc : 8 DI LONDONDHAVAL GIRARD - 07/04/2015 14:45 CDT Allergy Latex Reaction : No Latex Hives/Itch : No Latex Congestion/Eye Irr/Breathing : No Latex Symptom Progression : No Latex Previous Test : No DAYLINCHARLEYDI Almeida ANUEL GIRARD - 07/04/2015 14:45 CDT (As [...] Meds additional comment : refills from the [facility]-Uses a pill maintenance planner DI LONDON ANUEL GIRARD - 07/04/2015 14:45 CDT Medication [...] tab(s) ; Ordering Provider: VICKEY HOLT DNP, CALL WORKER PERSON; Catalog Code: aspirin ; Order Dt/Tm: 03/02/2012 [...] 16:23 - PETRA RUSSELL LPN [employer] 1965, 1968 Procedure Dt/Tm: 02/16/1986 ; Anesthesia Minutes: 0 ; Procedure Name: Biopsy of breast ; Procedure Minutes: 0 ; Comments: 09/24/2010 11:37 - VICKEY HOLT DNP, CALL WORKER PERSON date unknown ; Last Reviewed Dt/Tm: 02/16/1986 00:00:00 LEARNING DESIGNER Procedure Dt/Tm: 1959 ; Anesthesia Minutes: 0 ; Procedure Name: Appendectomy ; Procedure Minutes: 0; Last Reviewed Dt/Tm: 06/05/1959 00:00:00 CDT Procedure Dt/Tm: 01/03/2009 ; Anesthesia Minutes: 0 ; Procedure Name: Colonoscopy ; Procedure Minutes: 0 ; Comments: 09/18/2010 09:23 - JOHN CONCEPCION LPN WNL ; Last Reviewed Dt/Tm: 01/03/2009 00:00:00 LEARNING DESIGNER Procedure Dt/Tm: 07/06/2002 ; Anesthesia Minutes: 0 ; Procedure Minutes: 0 ; Last Reviewed Dt/Tm: 07/06/2002 00:00:00 CDT Procedure Dt/Tm: 03/22/2001 ; Anesthesia Minutes: 0 ; Procedure Minutes: 0 ; Last Reviewed Dt/Tm: 03/22/2001 00:00:00 LEARNING DESIGNER Procedure Dt/Tm: 06/14/1998 ; Anesthesia Minutes: 0 ; Procedure Minutes: 0 ; Last Reviewed Dt/Tm: 06/14/1998 00:00:00 CDT Procedure Dt/Tm: 01/04/2015 ; Anesthesia Minutes: 0 ; Procedure Name: Exercise stress echocardiography ; Procedure Minutes: 0 ; Last Reviewed Dt/Tm: 01/04/2015 00:00:00 LEARNING DESIGNER Dependent Habits Exposure to Tobacco Smoke : [...] : 2 cup per week Comments (Comment: decne [DI LONDON RN - 07/04/2015 14:45 CDT] [...] : No 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 MMSE=31. DI LONDON RN - 07/04/2015 14:45 CDT Vision Testing [facility] Date of last eye exam : 08/30/2014 CDT [facility] Glaucoma screen : Yes Corrective Lenses : [...] : None Appetite : Excellent DI LONDON ERA - 07/04/2015 14:45 CDT Functional Living Situation : Home independently Current Daily Living Assistance : None Home Equipment : None Mobility Assistance Prior to Admission : Independent Rising From Chair Fall Risk Asterrich : Able to rise in a single movement, no loss of balance with steps Gait : Steady Timed Up and Go Test Time : 10 second(s) Home Environment Note : two story home Sensory Deficits : None Med Vestor Corrective Devices : Glasses Med Vestor Safety Comment : no falls in the past year Med Vestor Safety Vision Hearing Mobility : Yes SURYA DI YOUNGERJORDAN GIRARD - 07/04/2015 14:45 CDT Advance Directive Advanced Directives : No Advance Directive Additional Information : No Advance Directive Comments : proviided a copy on an advanced directive and she will be bringing it in DAYLINDONNYJORGEElle DI ANUEL GIRARD - 07/04/2015 14:45 CDT Exercise Days/Wk of Moderate or Greater Exercise : 2 Minutes/Day Engaged in Activity : 50 Total Minutes Exercise/Week : 100 Exercise Type : Other: goes to Cardiac rehab SURYA DI ANUEL GIRARD - 07/04/2015 14:45 CDT Education General Patient Education Powergrid Topics : Advance directives, Allergies, Exercise, Immunizations, Importance of follow-up visits, Medication dosage, route, scheduling, Medication generic/brand names, purpose, action, Nutrition/Diet, Oral care, Plan of care, Printed materials, Safety, bathtub, Safety, fall DI LONDON ERA - 07/04/2015 16:06 CDT Learning Style Preference Adult Grid Patient : Printed materials, Demonstration, Verbal explanation Family : None SURYA DI ANUEL GIRARD - 07/04/2015 14:45 CDT Referrals/Recommendations [facility] Vestor Lifestyle goals/modificiations : Continues to be very [...] LONDON RN - 07/04/2015 14:45 CDT Source: [facility] [employer] Document Id: [id number]!3 documented in this encounter Plan of Treatment Upcoming Encounters Date Type Specialty Care Team Description 12/26/2021 Office Visit Cardiovascular Disease Maritza Currie M.D. [address] [place] [phone] ([place]) 01/16/2022 Appointment Radiology Vignesh Currie M.D. [address] [place] [phone] ([place]) 01/16/2022 Appointment Cardiovascular Disease Maritza Currie M.D. [address] [place] [phone] ([place]) 01/16/2022 Appointment Radiology Vignesh Currie M.D. [address] [place] [phone] ([place]) 01/16/2022 Appointment Cardiovascular Disease Maritza uCrrie M.D. [address] [place] [phone] ([place]) documented as of this encounter Visit Diagnoses Not on filedocumented in this encounter Additional Health Concerns Assessment Noted Time PHQ-9 Depression Total Score: 7 06/21/2014 9:20 AM CDT documented as of this encounter
--- OUTSIDE RECORDS SUMMARY | 2021-12-10 15:06 | XMS_ITS | Encounter Summary ---
:1945 Author Organization [facility] Address [address] [place] [address] Care Team Providers Name Role Phone Unavailable Primary Care Provider Unavailable Encounter Details Date Type Department Care Team Description 03/30/2017 Comprehensive Visit Department of Elizabeth Patel C.N.P. [address] [place] [address] Vertigo Benign Rehabilitation Luciana Ferguson P.T. [address] [place] [phone] Positional Services in [address] [phone] Social History Tobacco Use Types Packs/Day Years [...] Patient will contact therapist if symptoms return. R LAB TECHNICIAN documented in this encounter Consult Notes Luciana [...] cervical range of motion to perform Hallpike [place] testing. Performed Hallpike Karan testing without symptom [...] be achieved in 2 weeks. Provider signature R LAB TECHNICIAN documented in this encounter Plan of Treatment Upcoming Encounters Date Type Specialty Care Team Description 12/26/2021 Office Visit Cardiovascular Disease Maritza Currie M.D. [address] [place] [address] [phone] (Wo rk) 01/16/2022 Appointment Radiology Vignesh Currie M.D. [address] [place] [address] [phone] (Wo rk) 01/16/2022 Appointment Cardiovascular Disease Maritza Currie M.D. [address] [place] [address] [phone] (Wo rk) 01/16/2022 Appointment Radiology Vignesh Currie M.D. [address] [place] [address] [phone] (Wo rk) 01/16/2022 Appointment Cardiovascular Disease Maritza Currie M.D. [address] [place] [address] [phone] (Wo rk) documented as of this encounter Visit Diagnoses Diagnosis Vertigo Benign Positional Bilateral documented in this encounter Additional Health Concerns Assessment Noted Time PHQ-9 Depression Total Score: 7 06/21/2014 9:20 AM CDT documented as of this encounter
--- OUTSIDE RECORDS SUMMARY | 2021-12-10 15:06 | XMS_ITS | Encounter Summary ---
:1945 Author Organization [facility] Address [address] [place] [address] Care Team Providers Name Role Phone Unavailable Primary Care Provider Unavailable Encounter Details Date Type Department Care Team Description 04/17/2015 Hospital En[facility] [address] [place] [phone] (Wo rk) Social History Tobacco Use [...] Comments Blood Pressure 125/56 04/17/2015 2:29 PM DIRECTOR GIFT Pulse 70 04/17/2015 2:29 PM DIRECTOR GIFT Temperature - - Respiratory Rate 16 04/17/2015 2:29 PM DIRECTOR GIFT Oxygen Saturation - - Inhaled Oxygen Concentration - - Weight 86.4 kg (190 lb 7.6 oz) 04/17/2015 2:29 PM DIRECTOR GIFT Height 158 cm (5' 2.21) 04/17/2015 2:29 PM DIRECTOR GIFT Body Mass Index 34.61 04/17/2015 2:29 PM DIRECTOR GIFT documented in this encounter Medications at Time [...] Anxiety disorder NOS Coronary Artery Disease (CAD) [place] Hyperlipidemia/Dyslipidemia Hypothyroidism NOS NIDDM [non-insulin dependent [...] Ordered: OV Est Pt Level 3 - 42078 - 15 min 2. DM2 We are [...] Ordered: OV Est Pt Level 3 - 93854 - 15 min Electronically Signed By: GAIL VILLAR MD On: 04/17/2015 03:19 PM Source: [employer] Document Id: [id number] CTOR GIFT documented in this encounter Miscellaneous Notes Miscellaneous - Gail Cortez M.D. - 04/17/2015 3:06 PM DIRECTOR GIFT Ambulatory Patient Summary [address] [place] [id number] Visit Information Name: ARCHIE BAZAN [facility] Number: [id number] Current Date: 04/17/2015 15:06:02 Physicians Attending Provider: GAIL VILLAR MD Primary Care Provider: GAIL VILLAR MD ELIDASTEVEN ARCHIE MAI has been given the following list [...] Stress Test Active Coronary Artery Disease (CAD) [place] Active Your Upcoming Appointments Date Time Location Provider 04/18/2015 08:00 [facility] Rehab [facility] Cardio/Pulm Therapist 04/20/2015 08:00 [facility] Rehab [facility] Cardio/Pulm Therapist 05/24/2015 08:00 [facility] Lab [facility] Lab 05/24/2015 08:15 [facility] Family Med Gail Gabriel MD 06/23/2015 14:30 [facility] Pierce Mcmahon MD, Lon Leblanc Attention: Contact [...] if you dont have one. Go to [email or web address] and click on Create Your Account. Then, follow the directions to complete the online form. Youll be asked for your [facility] number which you can find at the top of this document. Your Goals/Additional instructions: Source: [facility] POWERCHART Document Id: [id number] CTOR GIFT Miscellaneous - Gail Cortez M.D. - 04/17/2015 3:06 PM DIRECTOR GIFT Ambulatory Discharge Medication List [address] [place] [id number] Visit Information Name: ARCHIE BAZAN [facility] Number: [id number] Visit Date: 04/17/2015 15:06:00 [...] MD Signed On:17-APR-2015 15:04:53 Additional Information: Source: [facility] POWERCHART Document Id: [id number] CTOR GIFT Miscellaneous - Petra Lopez L.P.N. - 04/17/2015 2:29 PM CST Adult Printed Circuit Board Reworker Intake/History Adult Printed Circuit Board Reworker Intake/History Entered On: 04/17/2015 14:34 DIRECTOR GIFT Performed On: 04/17/2015 14:29 DIRECTOR GIFT by PETRA LOPEZ LPN Intake Chief Complaint [...] kg/m2 PETRA LOPEZ LPN - 04/17/2015 14:29 DIRECTOR GIFT General Info Information Given By : Patient Languages : Kyrgyz Is Patient Female and 13-50 no hysterectomy : No PETRA LOPEZ LPN - 04/17/2015 14:29 DIRECTOR GIFT Subjective Pain Symptoms : No PETRA LOPEZ LPN - 04/17/2015 14:29 DIRECTOR GIFT Dependent Habits Exposure to Tobacco Smoke : Care provider denies smoking in home, Other: never Smoking Status : Never smoker Tobacco 2A : No Tobacco Use/Currently Using : No Tobacco Use/Last 30 Days : No Tobacco Use/Last 12 months : No Alcohol Use : No PETRA LOPEZ LPN - 04/17/2015 14:29 DIRECTOR GIFT Caffeine Use Grid Caffeine Use : Past Type : Coffee, Soft drinks Frequency : Occasionally Amount : 1 cup per week PETRA LOPEZ LPN - 04/17/2015 14:29 DIRECTOR GIFT Recreational Drug Use Grid Drug Use : None PETRA LOPEZ LPN - 04/17/2015 14:29 DIRECTOR GIFT Source: [facility] [employer] Document Id: [id number] DIRECTOR GIFT!44 CTOR GIFT documented in this encounter Plan of Treatment Upcoming Encounters Date Type Specialty Care Team Description 12/26/2021 Office Visit Cardiovascular Disease Maritza Currie M.D. [address] [place] [address] [phone] ([place]) 01/16/2022 Appointment Radiology Vignesh Currie M.D. [address] [place] [address] [phone] ([place]) 01/16/2022 Appointment Cardiovascular Disease Maritza Currie M.D. [address] [place] [address] [phone] ([place]) 01/16/2022 Appointment Radiology Vignesh Currie M.D. [address] [place] [address] [phone] ([place]) 01/16/2022 Appointment Cardiovascular Disease Maritza Currie M.D. [address] [place] [address] [phone] ([place]) documented as of this encounter Visit Diagnoses Not on filedocumented in this encounter Additional Health Concerns Assessment Noted Time PHQ-9 Depression Total Score: 7 06/21/2014 9:20 AM CDT documented as of this encounter
--- OUTSIDE RECORDS SUMMARY | 2021-12-10 15:06 | XMS_ITS | Encounter Summary ---
:1945 Author Organization [facility] Address [address] [place] [address] Care Team Providers Name Role Phone Unavailable Primary Care Provider Unavailable Encounter Details Date Type Department Care Team Description 07/21/2015 Hospital Encounter HX [facility] Clari Mcmahon M.D. [address] , [address] [place] [address] (Wo rk) Social History [...] of this encounter Nursing Notes Melvin Lauren, L.P.N. - 07/21/2015 12:07 PM CDT Dermatology Intake Dermatology Intake Entered On: 07/21/2015 12:10 CDT Performed On: 07/21/2015 12:07 CDT by MELVIN LAUREN LPN General Preferred Name : Marcial Accompanied By : Alone Chief Complaint : Referral from Dr. Gabriel for Saundra MELVIN LAUREN LPN - 07/21/2015 12:07 CDT Dermatology Intake History Pain Symptoms : No General Status : Better Skin Problems Comment : Improvement with topical clindimycin Past Dermatology History : Other: Saundra Comment : Sometimes would get hot in [...] LAUREN LPN - 07/21/2015 12:07 CDT Source: [employer] Document Id: [id number] CDT!28 documented in this encounter Plan of Treatment Upcoming Encounters Date Type Specialty Care Team Description 12/26/2021 Office Visit Cardiovascular Disease Maritza Currie M.D. [address] [place] [address] [phone] ([place]) 01/16/2022 Appointment Radiology Vignesh Currie M.D. [address] [place] [address] [phone] ([place]) 01/16/2022 Appointment Cardiovascular Disease Maritza Currie M.D. [address] [place] [address] [phone] ([place]) 01/16/2022 Appointment Radiology Vignesh Currie M.D. [address] [place], [place] [phone] (Wo rk) 01/16/2022 Appointment Cardiovascular Disease Maritza Currie M.D. [address] [place], [place] [phone] (Wo rk) documented as of this encounter Visit Diagnoses Not on filedocumented in this encounter Additional Health Concerns Assessment Noted Time PHQ-9 Depression Total Score: 7 06/21/2014 9:20 AM CDT documented as of this encounter
--- OUTSIDE RECORDS SUMMARY | 2021-12-10 15:06 | XMS_ITS | Encounter Summary ---
:1945 Author Organization [facility] Address [address] [place] [address] Care Team Providers Name Role Phone Unavailable Primary Care Provider Unavailable Encounter Details Date Type Department Care Team Description 01/12/2017 Abstract Department of Neurological Provider, [facility] orical Surgery in [address] [phone] Social History Tobacco Use Types Packs/Day [...] Visit Cardiovascular Disease Maritza Currie M.D. 200 [place], [place] [phone] ([place]) 01/16/2022 Appointment Radiology Vignesh Currie M.D. [address] [place] [address] [phone] ([place]) 01/16/2022 Appointment Cardiovascular Disease Maritza Currie M.D. [address] [place] [address] [phone] ([place]) 01/16/2022 Appointment Radiology Vignesh Currie M.D. [address] [place] [address] [phone] (Wo rk) 01/16/2022 Appointment Cardiovascular Disease Maritza Currie M.D. 200 [place], [place] [phone] (Wo rk) documented as of this encounter Visit Diagnoses Not on filedocumented in this encounter Additional Health Concerns Assessment Noted Time PHQ-9 Depression Total Score: 7 06/21/2014 9:20 AM CDT documented as of this encounter
--- OUTSIDE RECORDS SUMMARY | 2021-12-10 15:06 | XMS_ITS | Encounter Summary ---
:1945 Author Organization [facility] Address [address] [place] [address] Care Team Providers Name Role Phone Unavailable Primary Care Provider Unavailable Encounter Details Date Type Department Care Team Description 09/01/2016 Hospital Encounter HX [facility] CARDIOLOG Mahesh Bates M.D., Ph.D. [address] [place] [address] (Wo rk) Social History Tobacco Use Types [...] 8 (eight) hours as needed for anxiety. glipiZIDE (for_GLUCOTROL) Take 10 mg by mouth 0 0 07/03/2016 5 mg tablet every morning before breakfast. ASPIRIN ORAL Take 81 mg by mouth [...] M.D., Ph.D. - 09/01/2016 10:56 AM CDT [facility] Suresh Patel. I have [...] BATES MD On: 09/22/2016 04:01 PM Source: [facility] MHSDOLBEYNONRADSYS Document Id: [id number] documented in this encounter Nursing Notes Andrea Malhotra R.N. - 09/11/2016 1:54 PM CDT cardiology Copy of overnight oximetry and holter monitor were given to Kenia jurado [facility] to be sent to [facility] in [place]. Electronically Signed By: ANDREA MALHOTRA RN On: 09/11/2016 01:55 PM Modified by and Electronically Signed by: ANDREA MALHOTRA RN On: 09/11/2016 01:55 PM Source: [facility] POWERCHART Document Id: [id number] Andrea Malhotra R.N. - 09/02/2016 9:52 AM CDT cardiology notes Copy of Dr. Bates's cardiology note of yesterday was given to Kenia in [facility] to be sent to Suresh Patel at [facility]. Electronically Signed By: ANDREA MALHOTRA RN On: 09/02/2016 09:53 AM Modified by and Electronically Signed by: ANDREA MALHOTRA RN On: 09/02/2016 09:53 AM Source: [employer] Document Id: [id number] documented in this encounter Miscellaneous Notes Miscellaneous - Andrea Malhotra R.N. - 09/11/2016 1:52 PM CDT *General Message From: ANDREA MALHOTRA RN To: ANDREA MALHOTRA RN; Sent: 09/11/2016 13:52:21 CDT Subject: *General Message Lázaro Bates, the overnight oximetry and holter monitor are available for you to review on Marcial Adams. Toi Adams Source: [employer] Document Id: [id number] Miscellaneous - Andrea Malhotra R.N. - 09/02/2016 10:00 AM CDT *General Message From: ANDREA MALHOTRA RN To: OCTAVIA BERGERON; Sent: 09/02/2016 10:00:46 CDT Subject: *General Message Dr. Ten Portillo ordered an overnight oximetry for Marcial. Toi Adams Source: [employer] Document Id: [id number] Electronically signed by Conversion, [facility] Chromium Plater [id number] at 09/03/2016 7:04 AM CDT Miscellaneous - Andrea Malhotra R.N. - 09/01/2016 11:04 AM CDT Adult Rush Seater Intake/History Adult Rush Seater Intake/History Entered On: 09/01/2016 11:08 CDT Performed [...] Preferred Communication Mode : Verbal Languages : Latvian Is Patient Female and [...] MALHOTRA RN - 09/01/2016 11:04 CDT [facility] Document Id: [id number] CDT!43 documented in this encounter Plan of Treatment Upcoming Encounters Date Type Specialty Care Team Description 12/26/2021 Office Visit Cardiovascular Disease Maritza Currie M.D. [address] [place] [address] [phone] (Wo rk) 01/16/2022 Appointment Radiology Vignesh Currie M.D. [address] [place] [address] [phone] (Wo rk) 01/16/2022 Appointment Cardiovascular Disease Maritza Currie M.D. [address] [place] [address] [phone] (Wo rk) 01/16/2022 Appointment Radiology Vignesh Currie M.D. [address] [place] [address] [phone] (Wo rk) 01/16/2022 Appointment Cardiovascular Disease Maritza Currie M.D. [address] [place] [address] [phone] (Wo rk) documented as of this encounter Visit Diagnoses Not on filedocumented in this encounter Additional Health Concerns Assessment Noted Time PHQ-9 Depression Total Score: 7 06/21/2014 9:20 AM CDT documented as of this encounter
--- OUTSIDE RECORDS SUMMARY | 2021-12-10 15:06 | XMS_ITS | Encounter Summary ---
:1945 Author Organization [facility] Address [address] [place] [address] Care Team Providers Name Role Phone Unavailable Primary Care Provider Unavailable Encounter Details Date Type Department Care Team Description 07/23/2015 Hospital Encounter HX [facility] CARDIOLOG Mona Lemus M.D. [address] [place] [phone] (Wo rk) Social History Tobacco Use Types [...] does have an appointment with the o ptometrist/information technology architect coming up. MEDICATIONS Aspirin 81 mg a [...] LEMUS MD On: 03/18/2016 11:34 AM Source: [facility] MHSDOLBEYNONRADSYS Document Id: [id number] NTEER SERVICES SUPERVISOR documented in this encounter Miscellaneous Notes Miscellaneous - Andrea Malhotra R.N. - 07/23/2015 12:59 PM CDT Adult Investment Banker Intake/History Adult Investment Banker Intake/History Entered On: 07/23/2015 13:03 CDT Performed On: 07/23/2015 12:59 CDT by ANDREA MALHOTRA asphalt roller person Chief Complaint : Here for 6 month [...] 07/23/2015 12:59 CDT General Info Languages : Syriac Is Patient Female and 13-50 no hysterectomy [...] MALHOTRA RN - 07/23/2015 12:59 CDT [facility] Document Id: [id number] CDT!39 documented in this encounter Plan of Treatment Upcoming Encounters Date Type Specialty Care Team Description 12/26/2021 Office Visit Cardiovascular Disease Maritza Currie M.D. [address] [place] [phone] (Wo rk) 01/16/2022 Appointment Radiology Vignesh Currie M.D. [address] [place] [address] [phone] (Wo rk) 01/16/2022 Appointment Cardiovascular Disease Maritza Currie M.D. [address] [place] [address] [phone] (Wo rk) 01/16/2022 Appointment Radiology Vignesh Currie M.D. [address] [place] [address] [phone] (Wo rk) 01/16/2022 Appointment Cardiovascular Disease Maritza Currie M.D. [address] [place] [address] [phone] (Wo rk) documented as of this encounter Visit Diagnoses Not on filedocumented in this encounter Additional Health Concerns Assessment Noted Time PHQ-9 Depression Total Score: 7 06/21/2014 9:20 AM CDT documented as of this encounter
--- OUTSIDE RECORDS SUMMARY | 2021-12-10 15:06 | XMS_ITS | Encounter Summary ---
:1945 Author Organization [facility] Address [address] [place] [address] Care Team Providers Name Role Phone Unavailable Primary Care Provider Unavailable Encounter Details Date Type Department Care Team Description 09/03/[address] [facility] Mahesh Peraza M.D., Ph.D. [address] [place] [address] (Wo rk) Social History Tobacco Use Types [...] Visit Cardiovascular Disease Maritza Currie M.D. [address] [place] [address] [phone] (Wo rk) 01/16/2022 Appointment Radiology Vignesh Currie M.D. [address] [place] [address] [phone] (Wo rk) 01/16/2022 Appointment Cardiovascular Disease Maritza Currie M.D. [address] [place] [address] [phone] (Wo rk) 01/16/2022 Appointment Radiology Vignesh Currie M.D. [address] [place] [address] [phone] (Wo rk) 01/16/2022 Appointment Cardiovascular Disease Maritza Currie M.D. [address] [place] [address] [phone] (Jean r[place]) documented as of this encounter Visit Diagnoses Not on filedocumented in this encounter Additional Health Concerns Assessment Noted Time PHQ-9 Depression Total Score: 7 06/21/2014 9:20 AM CDT documented as of this encounter
--- OUTSIDE RECORDS SUMMARY | 2021-12-10 15:06 | XMS_ITS | Encounter Summary ---
:1945 Author Organization [facility] Address [address] [place] [address] Care Team Providers Name Role Phone Unavailable Primary Care Provider Unavailable Encounter Details Date Type Department Care Team Description 07/29/2016 Hospital Encounter HX [facility] Elizabeth Patel, C.N.P. [address] [place] [address] (Wo rk) Social History Tobacco Use Types [...] Summary-Paper Based CODING DATE: 08/01/2016 FINAL CA [facility] STATUS: * Discharged to Home or [...] WARD Date Saved: 08/01/2016 12:05 pm Source: [employer] Document Id: [id number] documented in this encounter Plan of Treatment Upcoming Encounters Date Type Specialty Care Team Description 12/26/2021 Office Visit Cardiovascular Disease Maritza Currie M.D. 200 [place], [place] [phone] ([place]) 01/16/2022 Appointment Radiology Vignesh Currie M.D. [address] [place] [address] [phone] ([place]) 01/16/2022 Appointment Cardiovascular Disease Maritza Currie M.D. [address] [place] [address] [phone] ([place]) 01/16/2022 Appointment Radiology Vignesh Currie M.D. [address] [place] [address] [phone] ([place]) 01/16/2022 Appointment Cardiovascular Disease Maritza Currie M.D. [address] [place] [address] [phone] ([place]) documented as of this encounter Visit Diagnoses Not on filedocumented in this encounter Additional Health Concerns Assessment Noted Time PHQ-9 Depression Total Score: 7 06/21/2014 9:20 AM CDT documented as of this encounter
--- OUTSIDE RECORDS SUMMARY | 2021-12-10 15:06 | XMS_ITS | Encounter Summary ---
:1945 Author Organization [facility] Address [address] [place] [address] Care Team Providers Name Role Phone Unavailable Primary Care Provider Unavailable Encounter Details Date Type Department Care Team Description 05/24/2015 Hospital En[facility] [address] [place] [phone] (Wo rk) Social History Tobacco Use [...] Anxiety disorder NOS Coronary Artery Disease (CAD) [place] Vessel Hyperlipidemia/Dyslipidemia Hypothyroidism NOS NIDDM [non-insulin dependent [...] Ordered: OV Est Pt Level 4 - 52489 - 25 min 2. Pain Leg Itz Most likely this is more musculoskeletal since the pain improves as she continues to walk. If it was claudication I think it would continue to get worse. We will continue to monitor. Ordered: OV Est Pt Level 4 - 40336 - 25 min 3. Hyperlipidemia NOS Lipid panel acceptable. ALT normal. Continue statin. 4. Rosacea NOS Patient has follow up with Dermatology next month. We will not make any changes until that appointment. Ordered: OV Est Pt Level 4 - 71186 - 25 min 5. Burning Sensation Skin This is a little better but continues. It is not overly bothersome so we will continue to monitor. Ordered: OV Est Pt Level 4 - 33010 - 25 min Electronically Signed By: NE VILLAR MD On: 05/25/2015 08:37 AM [facility] Document Id: [id number] documented in this encounter Miscellaneous Notes Miscellaneous - Ne Cortez M.D. - 05/24/2015 8:59 AM CDT Ambulatory Patient Summary [address] [id number] Visit Information Name: MARCIAL BAZAN [facility] Number: [id number] Current Date: 05/24/2015 08:59:10 Physicians Attending Provider: NE VILLAR MD Primary Care Provider: NE VILLAR MD BENIMARCIAL PAU has been given the following [...] Stress Test Active Coronary Artery Disease (CAD) [place] Vessel Active Your Upcoming Appointments Date Time Location Provider 05/25/2015 08:00 [facility] Cardio/Pulm Therapist 06/23/2015 14:30 [facility] Pierce Mcmahon MD, Lon Leblanc [...] if you dont have one. Go to [email or web address] and click on Create Your Account. Then, follow the directions to complete the online form. Youll be asked for your [facility] number which you can find at the top of this document. Your Goals/Additional instructions: Source: [facility] POWERCHART Document Id: [id number] Miscellaneous - Ne Cortez M.D. - 05/24/2015 8:59 AM CDT Ambulatory Discharge Medication List [address] [id number] Visit Information Name: MARCIAL BAZAN [facility] Number: [id number] Visit Date: 05/24/2015 08:59:09 Attending [...] MD Signed On:24-MAY-2015 08:58:48 Additional Information: Source: [facility] POWERCHART Document Id: [id number] Miscellaneous - Ne Cortez M.D. - 05/24/2015 8:38 AM CDT Quality Measures Quality Measures Entered On: 05/25/2015 8:38 CDT Performed On: 05/24/2015 8:38 CDT by NE VILLAR MD Diabetes Date of Last Foot Exam : 05/24/2015 CDT NE VILLAR MD - 05/25/2015 8:38 CDT Source: [facility] POWERCHART Document Id: [id number] CDT!3 Miscellaneous - Maria C Wilson L.P.N. - 05/24/2015 8:22 AM CDT Adult Security Field Supervisor Intake/History Adult Security Field Supervisor Intake/History Entered On: 05/24/2015 8:27 CDT Performed [...] Information Given By : Patient Languages : Danish Is Patient Female and [...] Occasionally Amount : 1 cup per week [employer]HOU[employer]ICES MARIA C Murray LPN - 05/24/2015 8:22 CDT Recreational Drug Use Grid Drug Use : None ZHOUULICES MARIA C Murray LPN - 05/24/2015 8:22 CDT Source: [facility] [employer] Document Id: [id number] CDT!41 Miscellaneous - Reanna Castano R.N. - 04/04/2015 3:39 PM CST alprazolam Document Contains Addenda Addendum by SADE HOGAN RN on 05 April 2015 09:00:07 SANITATION WORKER HOSING MACHINERY called to [facility] Addendum by NE VILLAR MD on 05 April 2015 06:01:32 SANITATION WORKER HOSING MACHINERY From: NE VILLAR MD Sent: 04/05/2015 06:01:32 SANITATION WORKER HOSING MACHINERY Subject: RE:alprazolam Approved Order:ALPRAZolam (Xanax 0.5 mg oral tablet) 1 tab(s) PO q8hr Take for anxiety. Qty: 25 tab(s) Refills: 1 PRN Anxiety Don't Print - [facility] Signed by NE VILLAR MD 04/05/2015 06:01:30 From: REANNA CASTANO RN To: NE VILLAR MD; REANNA CASTANO RN; Sent: 04/04/2015 15:39:20 SANITATION WORKER HOSING MACHINERY Subject: alprazolam On hold pending signature Order:ALPRAZolam (Xanax 0.5 mg oral tablet) 1 tab(s) PO q8hr Take for anxiety. Qty: 25 tab(s) Refills: 1 PRN Anxiety Don't Print - called to pharmacy (Rx) kendy BELLAMY 02/22/15 Last written 11/23/14 #25 with 1 refill. [facility] Document Id: [id number] Electronically signed by Conversion, [facility] Book[employer] Prizer [id number] at 07/12/2016 8:28 PM CDT Miscellaneous - Sade Hogan R.N. - 03/09/2015 11:17 AM CST triage call Document Contains Addenda Addendum by REANNA CASTANO RN on 12 March 2015 06:54:16 SANITATION WORKER HOSING MACHINERY noted Addendum by NE VILLAR MD on 10 March 2015 21:08:11 SANITATION WORKER HOSING MACHINERY From: NE VILLAR MD To: SADE HOGAN RN; Sent: 03/10/2015 21:08:11 SANITATION WORKER HOSING MACHINERY Subject: RE: triage call Agree with plan. From: SADE HOGAN RN To: NE VILLAR MD; SADE HOGAN RN; Sent: 03/09/2015 11:17:45 SANITATION WORKER HOSING MACHINERY Subject: triage call Pt called to ask [...] tea this am. Advised increased liquids. [facility]: [facility] Document Id: [id number] Electronically signed by Conversion, [facility] [employer] [id number] at 07/12/2016 8:28 PM CDT documented in this encounter Plan of Treatment Upcoming Encounters Date Type Specialty Care Team Description 12/26/2021 Office Visit Cardiovascular Disease Mairtza Currie M.D. [address] [place] [phone] (Wo rk) 01/16/2022 Appointment Radiology Vignesh Currie M.D. [address] [place], [place] [phone] (Wo rk) 01/16/2022 Appointment Cardiovascular Disease Maritza Currie M.D. [address] [place] [phone] (Wo rk) 01/16/2022 Appointment Radiology Vignesh Currie M.D. [address] [place], [place] [phone] (Wo rk) 01/16/2022 Appointment Cardiovascular Disease Maritza Currie M.D. [address] [place] [phone] (Wo rk) documented as of [...] ALT (Alanine Aminotransferase) (05/24/2015 8:11 AM CDT) P athologist Signature Alanine 18 7 - 45 [...] POWERCHART MMOLL HXeGFR (MDRD) >60 >=60 POWERCHART [id number] eGFR >60 >=60 POWERCHART Black/ [id number] Guatemalan Specimen (Source) Anatomical Collection Method Collection Time [...] Borderline high 200-239 mg/dL High 240 mg/dL 2013 National Lipid Association recommen dations for [...] for FH and FDB is available sergeyu [facility]: FH/ADH Genetic Reflex Case el (test ADHP). Acquired (non-genetic) causes of markedly increased LDL cholesterol include cholestatic liver disease due to the presence of LpX. If a genetic form of hypercholesterolemia is suspected, family studies including biochemical testing fo r lipids (total cholesterol,triglycerides, LDL cholesterol and HDL cholesterol) are recommended. ??Please contact the laboratory at or the on-line test catalog at [employer] for information about how to order these [...]
--- OUTSIDE RECORDS SUMMARY | 2021-12-10 15:06 | XMS_ITS | Encounter Summary ---
:1945 Author Organization [facility] Address [address] [place] [address] Care Team Providers Name Role Phone Unavailable Primary Care Provider Unavailable Encounter Details Date Type Department Care Team Description 07/07/2016 [facility] Erik Macario M.D. [address] [place], [place] [phone] (Wo rk) Social History [...] Amato M.D. - 07/07/2016 1:29 PM CDT [facility] REFERRAL SOURCE Adriane Patel APRN, TELEPHONE ADVICE NURSE, [facility] CHIEF COMPLAINT/REASON FOR VISIT Follow up on [...] The most recent laboratory values obtained from [facility] dated June 26, 2016, are her uric acid which is elevated at 7.6, and a C-reactive protein which was elevated at 12. The reason for that elevation is a recent episode of gout that has been appropriately treated. Her ESR was also elevated at 64. I did review 12-lead ECG from our colleagues at [facility], which shows normal sinus rhythm, no [...] GAN MD On: 08/03/2016 02:58 PM Source: [facility] MHSDOLBEYNONRADSYS Document Id: [id number] documented in this encounter Miscellaneous Notes Miscellaneous - Annie Jones, R.N. - 07/07/2016 1:39 PM CDT Adult Nurse Tech Intake/History Document Has Been Updated Adult Nurse Tech Intake/History Entered On: 07/07/2016 13:43 CDT Performed On: 07/07/2016 13:39 CDT by ANNIE JONES salesperson fashion accessories Peripheral Pulse Rate : 78 /min Heart [...] Information Given By : Patient Languages : Brazilian Is Patient Female and 13-50 no hysterectomy [...] Amount : 2 cup per week ANNIE OJNES RN - 07/07/2016 13:39 CDT Recreational Drug [...] JONES RN - 07/07/2016 13:39 CDT Source[facility] Document Id: [id number] CDT!44 documented in this encounter Plan of Treatment Upcoming Encounters Date Type Specialty Care Team Description 12/26/2021 Office Visit Cardiovascular Disease Maritza Currie M.D. [address] [place] [phone] (Wo rk) 01/16/2022 Appointment Radiology Vignesh Currie M.D. [address] [place] [phone] (Wo rk) 01/16/2022 Appointment Cardiovascular Disease Maritza Currie M.D. [address] [place] [phone] (Wo rk) 01/16/2022 Appointment Radiology Vignesh Currie M.D. [address] [place] [phone] (Wo rk) 01/16/2022 Appointment Cardiovascular Disease Maritza Currie M.D. [address] [place] [phone] (Wo rk) documented as of this encounter Visit Diagnoses Not on filedocumented in this encounter Additional Health Concerns Assessment Noted Time PHQ-9 Depression Total Score: 7 06/21/2014 9:20 AM CDT documented as of this encounter
--- OUTSIDE RECORDS SUMMARY | 2021-12-10 15:06 | XMS_ITS | Encounter Summary ---
:1945 Author Organization [facility] Address [address] [place] [address] Care Team Providers Name Role Phone Unavailable Primary Care Provider Unavailable Encounter Details Date Type Department Care Team Description 09/05/2015 Hospital En[facility] Ne Liu M.D. [address] [place] [phone] (Wo rk) Social History Tobacco Use [...] VISIT Here for: Mammogram/US follow up. Discuss [facility] HISTORY OF PRESENT ILLNESS Marcial presents today [...] Anxiety disorder NOS Coronary Artery Disease (CAD) [place] Vessel Hyperlipidemia/Dyslipidemia Hypothyroidism NOS NIDDM [non-insulin dependent [...] Ordered: OV Est Pt Level 3 - 00935 - 15 min 2. Pain Breast Patient's breast pain has been going on for years and is not changing. She was called back for diagnostic imaging of the left breast but ultimately it was nothing worrisome. I think we can continue with annual mammogram screening unless her pain is becoming more significant. Ordered: OV Est Pt Level 3 - 43000 - 15 min Electronically Signed By: NE VILLAR MD On: 09/06/2015 06:22 AM Source: [facility] POWERCHART Document Id: [id number] documented in this encounter Miscellaneous Notes Miscellaneous - Ne Cortez M.D. - 09/06/2015 6:24 AM CDT Results Notification Document Contains Addenda Addendum by MARIA C WILSON LPN on September 06, 2015 14:57:54 CDT talked with pt. and gave results. From: NE VILLAR MD To: [place] Family Medicine Nurse Scotty; Sent: 09/06/2015 06:24:18 [...] 6.5 % A1C ( - <=5.6) Source: [facility] POWERCHART Document Id: [id number] Electronically signed by Conversion, [facility] Wildlife Enforcement Major [id number] at 07/13/2016 1:17 PM CDT Miscellaneous - Ne Cortez M.D. - 09/05/2015 1:04 PM CDT Ambulatory Patient Summary [address] [place] [id number] Visit Information Name: ELIDAMARCIAL HARRIS [facility] Number: [id number] Current Date: 09/05/2015 13:04:30 [...] Stress Test Active Coronary Artery Disease (CAD) [place] Active Your Upcoming Appointments Date Time [...] if you dont have one. Go to [email or web address] and click on Create Your Account. Then, follow the directions to complete the online form. Youll be asked for your [facility] number which you can find at the top of this document. Your Goals/Additional instructions: Source: [facility] POWERCHART Document Id: [id number] Miscellaneous - Ne Cortez M.D. - 09/05/2015 1:04 PM CDT Ambulatory Discharge Medication List [address] [id number] Visit Information Name: MARCIAL BAZAN PAU [facility] Number: [id number] Visit Date: 09/05/2015 13:04:29 Attending Provider: NE VILLAR MD Primary Care Provider: NE VILLAR MD ELIDASTEVENMARCIAL has been given the following list [...] MD Signed On:05-SEP-2015 13:04:19 Additional Information: Source: [facility] POWERCHART Document Id: [id number] Miscellaneous - Julio Milian, L.P.N. - 09/05/2015 12:22 PM CDT Adult Template Fitter Intake/History Adult Template Fitter Intake/History Entered On: 09/05/2015 12:30 CDT Performed [...] Information Given By : Patient Languages : Thai Is Patient Female and 13-50 no hysterectomy : No JULIO MILIAN - 09/05/2015 12:22 CDT Subjective Pain Symptoms : No JULOI MILIAN - 09/05/2015 12:22 CDT Dependent Habits Exposure [...] JULIO MILIAN - 09/05/2015 12:22 CDT Source: [employer] Document Id: [id number] CDT!34 Miscellaneous - Sade Hogan R.N. - [...] use twice a day or as directed, Prodigy, 99mo Qty: 200 each Refills: 3 Substitutions Allowed Don't Print - called to pharmacy (Rx) Signed by SADE HOGAN RN Submitted: Order:Rx Diabetic Monitors Supply Message Once E11.9 DMII, Test 2x/day or as directed, Prodigy, 99mo Qty: 1 each Refills: 0 Substitutions Allowed Don't Print - called to pharmacy (Rx) Signed by SADE HOGAN RN Pt requested new meter, she will need meter and supplies called in per Andrew, they will let her know she is getting a new meter. Source: [facility] POWERCHART Document Id: [id number] Electronically signed by Conversion, [facility] Wildlife Enforcement Major [id number] at 07/13/2016 1:17 PM CDT documented in this encounter Plan of Treatment Upcoming Encounters Date Type Specialty Care Team Description 12/26/2021 Office Visit Cardiovascular Disease Maritza Currie M.D. [address] [place] [phone] (Wo rk) 01/16/2022 Appointment Radiology Vignseh Currie M.D. [address] [place] [phone] (Wo rk) 01/16/2022 Appointment Cardiovascular Disease Maritza Currie M.D. [address] [place] [phone] (Wo rk) 01/16/2022 Appointment Radiology Vignesh Currie M.D. [address] [place] [phone] (Wo rk) 01/16/2022 Appointment Cardiovascular Disease Maritza Currie M.D. [address] [place] [phone] (Wo rk) documented as of this encounter [...]
--- OUTSIDE RECORDS SUMMARY | 2021-12-10 15:06 | XMS_ITS | Encounter Summary ---
:1945 Author Organization [facility] Address [address] [place] [address] Care Team Providers Name Role Phone Unavailable Primary Care Provider Unavailable Encounter Details Date Type Department Care Team Description 12/10/2015 Hospital En[facility] [address] [place] [phone] (Wo rk) Social History Tobacco Use [...] VISIT Pre op for cataract surgery in [place] Left eye 12/19/15, right eye 01/09/16 flu shot compare glucose reading with home meter HISTORY OF PRESENT ILLNESS Marcial presents for a preop exam prior to undergoing cataract surgery in [place] on 12/18 and 01/08. She has never [...] Anxiety disorder NOS Coronary Artery Disease (CAD) [place] Vessel Hyperlipidemia/Dyslipidemia Hypothyroidism NOS NIDDM [non-insulin dependent [...] Ordered: OV Est Pt Level 4 - 54156 - 25 min 2. DM2 Meter is running a little high compared to ours. Discussed with patient that when she checks her blood sugar, she can subtract around 50 points to determine what her sugar really is. We are going to continue the same meds at this time. Ordered: OV Est Pt Level 4 - 36901 - 25 min FOOTNOTES [1]Clinic Full Note; NE VILLAR MD 07/24/2014 14:02 CDT Electronically Signed By: NE VILLAR MD On: 12/12/2015 02:20 PM Source: [facility] Document Id: [id number] documented in this encounter Miscellaneous Notes Miscellaneous - Conversion, Historical Provider Ser - 03/07/2016 4:08 PM SPEEDOMETER INSPECTOR *General Message From: COLT VIGIL To: [place] Colonoscopy Pool; Sent: 03/07/2016 16:08:37 SPEEDOMETER INSPECTOR Subject: *General Message Please check patient Source: [facility] [employer]! Document Id: [id number] Miscellaneous - Belen Lovelace - 03/06/2016 11:38 AM CST Custom Result Letter March 06, 2016 MARCIAL BAZAN [address] [place] [phone] Dear MARCIAL BAZAN, [facility] would like to better assist you with [...] 2016 This document has images extracted. Source: [employer] Document Id: [id number] Miscellelliot - Cliff Rodriguez R.N. - 02/26/2016 3:34 PM CST *General Message From: CLIFF RODRIGUEZ RN ([place] Colonoscopy Pool) To: [place] Colonoscopy Pool; Sent: 02/26/2016 15:34:45 SPEEDOMETER INSPECTOR Subject: *General Message Due Date/Time: 01/03/2019 15:34:00 SPEEDOMETER INSPECTOR due 01/03/2019 Source: [employer] Document Id: [id number] [place] - Octavia Diaz - 12/13/2015 8:14 AM CDT CAROLE Nystatin/triamcinolone Document Contains Addenda Addendum by OCTAVIA DIAZ on December 19, 2015 08:13:55 CDT From: OCTAVIA DIAZ To: NE VILLAR MD; Sent: 12/19/2015 08:13:55 CDT Subject: RE: CAROLE Nystatin/triamcinolone noted Addendum by NE VILLAR MD on [...] can send that to insurance. Thanks. Source: [facility] POWERCHART Document Id: [id number] Miscellaneous - Ne Cortez M.D. - 12/10/2015 11:05 AM CDT Ambulatory Patient Summary [address] [id number] Visit Information Name: MARCIAL BAZAN [facility] Number: [id number] Current Date: 12/10/2015 [...] day as needed forRash New Routed to [address] [address] clopidogrel (Plavix 75 mg oral [...] as needed for Rash New Routed to [address] [address] Stop Taking the Following Medications: Medication list [...] Stress Test Active Coronary Artery Disease (CAD) [place] Vessel Active Your Upcoming Appointments Date Time [...] if you dont have one. Go to [email or web address] and click on Create Your Account. Then, follow the directions to complete the online form. Youll be asked for your [facility] number which you can find at the top of this document. Your Goals/Additional instructions: Source: [facility] POWERCHART Document Id: [id number] Miscellaneous - Ne Cortez M.D. - 12/10/2015 11:05 AM CDT Ambulatory Discharge Medication List [address] [id number] Visit Information Name: MARCIAL BAZAN [facility] Number: [id number] Current Date: 12/10/2015 [...] Topical, two [facility] [place] [id number] clopidogrel (Plavix 75 mg oral tablet) 1 [...] as needed for Rash New Routed to [address] [address] Stop Taking the Following Medications: Medication list [...] MD Signed On:10-DEC-2015 11:00:45 Additional Information: Source: [facility] VendCHART Document Id: [id number] Miscellaneous - Azra Blandon, L.P.N. - 12/10/2015 10:26 AM CDT *General Message From: AZRA BLANDON LPN ([place] Family Medicine Nurse Scotty) To: [...] new glucometer be sent to pharmacy. Source: [facility] POWERCHART Document Id: [id number] Miscellaneous - Azra Blandon, L.P.N. - 12/10/2015 10:06 AM CDT Obstructive [...] BLANDON LPN - 12/10/2015 10:06 CDT Source: [employer] Document Id: [id number] CDT!12 Miscellaneous - Azra Blandon L.P.N. - 12/10/2015 10:01 AM CDT Adult Integration Software Engineer Intake/History Adult Integration Software Engineer Intake/History Entered On: 12/10/2015 10:05 CDT Performed On: 12/10/2015 10:01 CDT by AZRA BLANDON LPN Intake Chief Complaint : Pre op for cataract surgery in [place] Left eye 12/19/15, right eye 01/09/16 flu [...] Information Given By : Patient Languages : Saudi Arabian Is Patient Female and 13-50 no hysterectomy [...] BLANDON LPN - 12/10/2015 10:01 CDT Source: [employer] Document Id: [id number] CDT!44 Miscellaneous - Azra Blandon, L.P.N. - [...] No Alcohol Use : No AZRA BLANDON [facility] - 12/10/2015 9:58 CDT Caffeine Use Grid Caffeine Use : Past Type : Coffee Frequency : Occasionally Amount : 2 cup per week AZRA BLANDON [facility] - 12/10/2015 9:58 CDT Recreational Drug Use Grid Drug Use : None AZRA BLANDON [facility] - 12/10/2015 9:58 CDT Psychosocial Domestic Abuse Concerns : None Behavioral Health Screen/Safety Assmt : No Denominational Preference : ReligiousAZRA Carroll [facility] - 12/10/2015 9:58 CDT Advance Directive Advanced Directives : No Advance Directive Additional Information : No AZRA BLANDON [facility] - 12/10/2015 9:58 CDT Educ Needs Learning Style Preference Adult Grid Patient : Demonstration, Printed materials, Verbal explanation, Video/Educational TV Family : None AZRA BLANDON [facility] - 12/10/2015 9:58 CDT Source: [employer] Document Id: [id number] CDT!36 documented in this encounter Plan of Treatment Upcoming Encounters Date Type Specialty Care Team Description 12/26/2021 Office Visit Cardiovascular Disease Maritza Currie M.D. [address] [place] [phone] ([place]) 01/16/2022 Appointment Radiology Vignesh Currie M.D. [address] [place] [phone] ([place]) 01/16/2022 Appointment Cardiovascular Disease Maritza Currie M.D. [address] [place] [phone] ([place]) 01/16/2022 Appointment Radiology Vignesh Currie M.D. [address] [place] [phone] ([place]) 01/16/2022 Appointment Cardiovascular Disease Maritza Currie M.D. [address] [place], [place] [phone] (Wo rk) documented as [...] 140 POWERCHART B MGDL Comment: Analyzed By [id number] Barber Oquendo Performed at [facility] [address] [place], [place] ??[address] Specimen Anatomical Collection Method Collection Time Receive [...]
--- OUTSIDE RECORDS SUMMARY | 2021-12-10 15:06 | XMS_ITS | Encounter Summary ---
:1945 Author Organization [facility] Address [address] [place] [address] Care Team Providers Name Role Phone Unavailable Primary Care Provider Unavailable Reason for Visit Physical Therapy (Routine) - Closed Specialty Diagnoses / Procedures Referred By Contact Refer red To Contact Diagnoses Vertigo Shahana Luque [facility] Procedures PT Evaluate and treat BHernan [address] [address] Referral ID Status Reason Start Date Expiration Date Visits Requ ested Visits Authorized [id number] Closed 01/06/2017 07/05/2017 12 12 Encounter Details Date Type Department Care Team Description 01/07/2017 Comprehensive Visit Department of Shahana Meeks, [place] [address] [address] [facility] Carley Yost, P.T. [address] [place] [phone] [phone] Social History Tobacco Use Types Packs/Day Years [...] with smooth pursuit, saccades or VOR testing. [place]: Symptomatic with immediate latency and duration [...] or restricted Physician Signature: Date Print Name: REHABILITATION documented in this encounter Plan of Treatment Upcoming Encounters Date Type Specialty Care Team Description 12/26/2021 Office Visit Cardiovascular Disease Maritza Currie M.D. [address] [place] [address] [phone] ([place]) 01/16/2022 Appointment Radiology Vignesh Currie M.D. [address] [place] [address] [phone] ([place]) 01/16/2022 Appointment Cardiovascular Disease Maritza Currie M.D. [address] [place] [address] [phone] ([place]) 01/16/2022 Appointment Radiology Vignesh Currie M.D. [address] [place] [address] [phone] (eJan ang[place]) 01/16/2022 Appointment Cardiovascular Disease Maritza Currie M.D. [address] [place] [address] [phone] (Wo rk) documented as of this encounter Visit Diagnoses Diagnosis Vertigo documented in this encounter Additional Health Concerns Assessment Noted Time PHQ-9 Depression Total Score: 7 06/21/2014 9:20 AM CDT documented as of this encounter
--- OUTSIDE RECORDS SUMMARY | 2021-12-10 15:06 | XMS_ITS | Encounter Summary ---
:1945 Author Organization [facility] Address [address] [place] [address] Care Team Providers Name Role Phone Unavailable Primary Care Provider Unavailable Encounter Details Date Type Department Care Team Description 01/31/2015 - Hospital Encounter [facility]X [facility] Nery belle, 09/21/2015 AURELIANO Belle M.D. [address] [phone] Social History Tobacco Use Types [...] Gail Cortez M.D. - 04/27/2015 3:05 PM TICKET MACHINE OPERATOR needs appt Document Contains Addenda Addendum by NYA WILSON LPN on April 30, 2015 10:39:19 CDT paperwork is on Dr. Gabriel desk- Addendum by GAIL VILLAR MD on April 30, 2015 07:07:05 CDT From: GAIL VILLAR MD To: [facility] Medicine Nurse Fajardo; Sent: 04/30/2015 07:07:05 CDT Subject: RE: needs appt Yes- that is fine. Gail Cm Addendum by JULIO PÉREZ on April 27, 2015 16:48:34 TICKET MACHINE OPERATOR From: JUILO PÉREZ ([facility] Medicine Nurse Fajardo) To: GAIL VILLRA MD; Sent: 04/27/2015 16:48:34 TICKET MACHINE OPERATOR Subject: FW: needs appt Client has an appointment in early May and would like to do it then. Can we keep the paperwork here until then? Jennifer Cm From: GAIL VILLAR MD To: [facility] Medicine Nurse Fajardo; Sent: 04/27/2015 15:05:09 TICKET MACHINE OPERATOR Subject: needs appt Please let patient know that I have received the paperwork for the diabetic shoes, but for insuranceto pay for them we need to update her foot exam. Could she please make an appt to do this? 15min would be okay unless patient has other things to discuss. ThanksGail Source: [facility] POWERCHART Document Id: [id number] Electronically signed by Sae [facility] [employer] Maker [id number] at 07/14/2016 9:28 AM CDT Miscellaneous - Nya Wilson L.P.N. - 02/26/2015 1:12 PM CST Accu-Chek Monitor Document Contains Addenda Addendum by ERNESTO CRUM LPN on 26 February 2015 16:17:25 TICKET MACHINE OPERATOR left message orders filled Addendum by GAIL VILLAR MD on 26 February 2015 14:11:03 TICKET MACHINE OPERATOR From: GAIL VILLAR MD To: [facility] Nurse Scotty; Sent: 02/26/2015 14:11:03 TICKET MACHINE OPERATOR Subject: RE: Accu-Chek Monitor Sent to [facility]. Thanks, Gail From: NYA WILSON LPN ([facility] Medicine Nurse Scotty) To: GAIL VILLAR MD; Sent: 02/26/2015 13:12:37 TICKET MACHINE OPERATOR Subject: Accu-Chek Monitor Pt called and states her Accu Check Monitor quit working. She needs a new RX for [facility]. She also needs the strips. She tests 1x daily and sometimes 2-3 times depending. Please giveher refills if possible. I could not propose this for you. 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 However, the narrative phrase printed from the coding software may appear abbreviated, or result in slightly different terminology. Coded By: SANDRA LARA Date Saved: 02/07/2015 11:40 am Source: [employer] Document Id: [id number] documented in this encounter Plan of Treatment Upcoming Encounters Date Type Specialty Care Team Description 12/26/2021 Office Visit Cardiovascular Disease Maritza Currie M.D. [address] [place] [address] [phone] (Wo rk) 01/16/2022 Appointment Radiology Vignesh Currie M.D. [address] [place] [address] [phone] (Wo rk) 01/16/2022 Appointment Cardiovascular Disease Maritza Currie M.D. [address] [place] [address] [phone] (Wo rk) 01/16/2022 Appointment Radiology Vignesh Currie M.D. [address] [place] [address] [phone] (Wo rk) 01/16/2022 Appointment Cardiovascular Disease Maritza Currie M.D. [address] [place] [address] [phone] (Wo rk) documented as of this encounter Visit Diagnoses Not on filedocumented in this encounter Additional Health Concerns Assessment Noted Time PHQ-9 Depression Total Score: 7 06/21/2014 9:20 AM CDT documented as of this encounter
--- OUTSIDE RECORDS SUMMARY | 2021-12-10 15:06 | XMS_ITS | Encounter Summary ---
:1945 Author Organization [facility] Address [address] [place] [address] Care Team Providers Name Role Phone Unavailable Primary Care Provider Unavailable Encounter Details Date Type Department Care Team Description 07/29/2016 Hospital Encounter HX [facility] Jayne Varela, C.N.P. [address] [place] [address] (Wo rk) Social History Tobacco Use Types [...] call her primary provider- Suresh Patel at [facility]- and update her. Encouraged to call back if she has any other concerns. Stated that she would. Electronically Signed By: ANDREA MALHOTRA RN On: 08/07/2016 10:48 AM Modified by and Electronically Signed by: ANDREA MALHOTRA RN On: 08/07/2016 10:48 AM Source: [employer] Document Id: [id number] documented in this encounter Miscellaneous Notes Miscellaneous - Conversion, Historical Provider Ser - 07/29/2016 11:59 PM CDT Coding Summary-Paper Based CODING DATE: 08/01/2016 FINAL [facility] STATUS: * Discharged to Home [...] WARD Date Saved: 08/01/2016 10:18 am Source: [employer] Document Id: [id number] documented in this encounter Plan of Treatment Upcoming Encounters Date Type Specialty Care Team Description 12/26/2021 Office Visit Cardiovascular Disease Maritza Currie M.D. [address] [place] [address] [phone] (Wo rk) 01/16/2022 Appointment Radiology Vignesh Currie M.D. [address] [place] [address] 55 [phone] (Wo rk) 01/16/2022 Appointment Cardiovascular Disease Maritza Currie M.D. [address] [place] [address] [phone] (Wo rk) 01/16/2022 Appointment Radiology Vignesh Currie M.D. [address] [place] [address] [phone] (Wo rk) 01/16/2022 Appointment Cardiovascular Disease Maritza Currie M.D. [address] [place] [address] [phone] (Wo rk) documented as of this encounter Visit Diagnoses Not on filedocumented in this encounter Additional Health Concerns Assessment Noted Time PHQ-9 Depression Total Score: 7 06/21/2014 9:20 AM CDT documented as of this encounter
--- OUTSIDE RECORDS SUMMARY | 2021-12-10 15:06 | XMS_ITS | Encounter Summary ---
:1945 Author Organization [facility] Address [address] [place] [address] Care Team Providers Name Role Phone Unavailable Primary Care Provider Unavailable Reason for Referral Outpatient (Routine) - Closed Specialty Diagnoses / Procedures Referred By Contact Refer red To Contact Diagnoses Hyperlipidemia Erik Escamilla M.D. [address] [place] [address] Referral ID Status Reason Start Date Expiration Date Visits Requ ested Visits Authorized [id number] Closed 11/28/2016 05/27/2017 1 1 Encounter Details Date Type Department Care Team Description 11/28/2016 Orders Only Department of Annamarie Escamilla; Cardiovascular Medicine Erik Jean-Baptiste M.D. Diabetes Mellitus Type 2 Without Complic ation (HCC) in [facility] [address] [facility] [address] [place] [address] [phone] Social History Tobacco Use Types Packs/Day Years [...] Cardiovascular Disease Maritza Currie M.D. [address] [place] [address] [phone] (Wo rk) 01/16/2022 Appointment Radiology Vignesh Currie M.D. [address] [place] [address] [phone] (Wo rk) 01/16/2022 Appointment Cardiovascular Disease Maritza Currie M.D. [address] [place] [address] [phone] (Wo rk) 01/16/2022 Appointment Radiology Vignesh Currie M.D. [address] [place] [address] [phone] (Wo rk) 01/16/2022 Appointment Cardiovascular Disease Maritza Currie M.D. [address] [place] [address] [phone] (Wo rk) Scheduled Referrals Name Type Priority Associated Diagnoses Order S [facility] Cardiovascular Disease Outpatient Routine Hyperlipidemia Exp ected: office visit (clinic) Referral 2017 (Approximate), Expires: 07/13/2022 documented as of this encounter Results (ABNORMAL) Lipid Panel (08/03/2017 9:11 AM CDT) P athologist Signature Cholesterol, 258 (H) mg/dL 08/03/2017 [facility] Total 9:56 AM [facility] [facility] Comment: ----REFERENCE VALUE---- Desirable: < 200 Borderline high: 200 - 239 High: > or = 240 Triglycerides 149 mg/dL 08/03/2017 9:56 AM CDT [facility] Comment: ----REFERENCE VALUE---- Normal: <150 Borderline high: 150-199 High: 200-499 Very high: > or =500 Cholesterol, HDL, S 62 >=50 mg/dL 08/03/2017 9:56 AM CDT [facility] Calculated LDL 166 (H) mg/dL 08/03/2017 9:56 AM CDT [facility] Comment: ----REFERENCE VALUE---- Desirable: <100 Above Desirable: 100-129 Borderline high: 130-159 High: 160-189 Very high: > or =190 Cholesterol, Non-HDL, 196 (H) mg/dL 08/03/2017 9:56 AM CDT [facility] LAB Comment: ----REFERENCE VALUE---- Desirable: <130 Above Desirable: 130-159 Borderline high: 160-189 High: 190-219 Very high: > or =220 Specimen Anatomical Collection Method Collection Time Receive d Time (Source) Location / / Volume Laterality Blood 08/03/2017 9:11 AM 8 9:12 CDT AM CDT Erik Hayes M.D. LAB BLOOD ADD-ON Performing Organization Address City/State/ZIP Code Phon e Number [facility]- [address] [place] [phone] [place] [address] LAB (ABNORMAL) BMP (Basic Metabolic Panel) (08/03/2017 9:11 AM CDT) Analysis Performed At Patho logist Time Signature Potassium, S 3.9 3.6 - 5.2 08/03/2017 [facility] mmol/L 9:56 AM [facility] Sodium, S 143 135 - 145 08/03/2017 [facility] mmol/L 9:56 AM [facility] Chloride, S 106 98 - 107 08/03/2017 [facility] mmol/L 9:56 AM [facility] Bicarbonate, S 25 22 - 29 08/03/2017 [facility] mmol/L 9:56 AM [facility] LAB Anion Gap 12 7 - 15 08/03/2017 [facility] 9:56 AM [facility] BUN (Blood Urea 27 (H) 6 - 21 08/03/2017 [facility] Nitrogen), S mg/dL 9:56 AM [facility] Creatinine 1.27 (H) 0.59 - 08/03/2017 [facility] 1.04 mg/dL 9:56 AM [facility] LAB eGFR-Non 42 (L) >=60 08/03/2017 [facility] Black/ mL/min/BSA 9:56 AM CDT [facility] LAB Comment: ----ADDITIONAL INFORMATION---- Estimated GFR calculated using the 2009 CKD_EPI creatinine equation. eGFR-Black/ 49 (L) >=60 mL/min/BSA 08/03/2017 9:56 AM [facility] Comment: ----ADDITIONAL INFORMATION---- Estimated GFR calculated using the 2009 CKD_EPI creatinine equation. Calcium, Total, S 9.8 8.8 - 10.2 mg/dL 08/03/2017 9 :[address] [facility] Glucose, S 140 70 - 140 mg/dL 08/03/2017 9:56 AM CDT [facility] Specimen Anatomical Collection Method Collection Time Receive d Time (Source) Location / / Volume Laterality Blood 08/03/2017 9:11 AM 8 9:12 CDT AM CDT Erik Hayes M.D. LAB BLOOD ADD-ON Performing Organization Address City/State/ZIP Code Phon e Number [facility]- [phone] [place] [phone] [facility] documented in this encounter Visit Diagnoses Diagnosis Hyperlipidemia Diabetes Mellitus Type 2 Without Complic ation (HCC) documented in this encounter Additional Health Concerns Assessment Noted Time PHQ-9 Depression Total Score: 7 06/21/2014 9:20 AM CDT documented as of this encounter
--- OUTSIDE RECORDS SUMMARY | 2021-12-10 15:06 | XMS_ITS | Encounter Summary ---
:1945 Author Organization [facility] Address [address] [place] [address] Care Team Providers Name Role Phone Unavailable Primary Care Provider Unavailable Encounter Details Date Type Department Care Team Description 04/22/2017 Hospital Encounter Department of Radiology Yady Vazquez, [place] 1705 [facility] [address] [place] [phone] Social History Tobacco Use Types Packs/Day Years [...] Visit Cardiovascular Disease Maritza Currie M.D. [address] [place] [address] [phone] ([place]) 01/16/2022 Appointment Radiology Vignesh Currie M.D. [address] [place] [address] [phone] ([place]) 01/16/2022 Appointment Cardiovascular Disease Maritza Currie M.D. [address] [place] [address] [phone] ([place]) 01/16/2022 Appointment Radiology Vignesh Currie M.D. [address] [place] [address] [phone] ([place]) 01/16/2022 Appointment Cardiovascular Disease Maritza Currie M.D. [address] [place] [address] [phone] ([place]) documented as of this encounter Procedures Procedure Name Priority Date/Time Associated Comments Diagnosis CT NECK SOFT RAD - Routine 04/22/2017 2:57 [place] Results for this TISSUE WITH IV (most inpatients PM QA SOFTWARE TESTER procedure are in CONTRAST and all the results outpatients) section. documented in this encounter Results CT Neck Soft Tissue with IV Contrast (04/22/2017 2:57 PM QA SOFTWARE TESTER) Anatomical Region Laterality Modality Neck N/A Computed Tomography Specimen (Source) Anatomical Collection Method Collection Time Re ceived Time Location / / Volume Laterality 04/22/2017 3:21 PM QA SOFTWARE TESTER Impressions 04/22/2017 3:27 PM QA SOFTWARE TESTER IMPRESSION: 1. ??No evidence of focal mass [...] pathologic bone lesions. Narrative 04/22/2017 3:27 PM QA SOFTWARE TESTER EXAM: CT NECK SOFT TISSUE WITH IV [...] excluded. 6. No pathologic bone lesions. Lincoln Vazquez M.D. IMSerg CT PROCEDURES documented in this encounter Visit Diagnoses Diagnosis Mass Neck documented in this encounter Administered Medications Inactive Administered Medications - up to 3 most recent administrations Medication Order MAR Action Action Date Dose Rate Site iohexol 300 mg iodine/mL solution Given 04/22/2017 2:12 PM QA SOFTWARE TESTER 1 30 mL 130 mL (for_OMNIPAQUE) 130 mL, intravenous, Once in imaging, contrast, Starting on Thu04/22/17 at 1405, For 1 dose sodium chloride injection 10 mL Given 04/22/2017 2:58 PM QA SOFTWARE TESTER 10 mL 10 mL, intravenous, As needed, line care, Starting on Thu04/22/17 at 1405 sodium chloride injection 10 mL Given 04/22/2017 2:58 PM QA SOFTWARE TESTER 10 mL 10 mL, intravenous, As needed, line care, Starting on Thu04/22/17 at 1405 documented in this encounter Additional Health Concerns Assessment Noted Time PHQ-9 Depression Total Score: 7 06/21/2014 9:20 AM CDT documented as of this encounter
--- OUTSIDE RECORDS SUMMARY | 2021-12-10 15:06 | XMS_ITS | Encounter Summary ---
:1945 Author Organization [facility] Address [address] [place] [address] Care Team Providers Name Role Phone Unavailable Primary Care Provider Unavailable Encounter Details Date Type Department Care Team Description 01/12/2017 Clinical Support Department of [facility]Shahana Alcala D.O. [address] [address] [facility] in Carley Yost P.T. 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 - 01/12/2017 9:00 AM CST Physical Therapy [...] Time (min): 29 min Functional G-code Worksheet KFAST AND ROOM ATTENDANT documented in this encounter Plan of Treatment Upcoming Encounters Date Type Specialty Care Team Description 12/26/2021 Office Visit Cardiovascular Disease Maritza Currie M.D. [address] [place] [address] [phone] ([place]) 01/16/2022 Appointment Radiology Vignesh Currie M.D. [address] [place] [address] [phone] ([place]) 01/16/2022 Appointment Cardiovascular Disease Maritza Currie M.D. [address] [place] [address] [phone] ([place]) 01/16/2022 Appointment Radiology Vignesh Currie M.D. [address] [place] [address] [phone] ([place]) 01/16/2022 Appointment Cardiovascular Disease Maritza Currie M.D. [address] [place] [address] [phone] ([place]) documented as of this encounter Visit Diagnoses Diagnosis Vertigo documented in this encounter Additional Health Concerns Assessment Noted Time PHQ-9 Depression Total Score: 7 06/21/2014 9:20 AM CDT documented as of this encounter
--- OUTSIDE RECORDS SUMMARY | 2021-12-10 15:06 | XMS_ITS | Encounter Summary ---
:1945 Author Organization [facility] Address [address] [place] [address] Care Team Providers Name Role Phone Unavailable Primary Care Provider Unavailable Reason for Referral Outpatient (Routine) - Closed Specialty Diagnoses / Procedures Referred By Contact Refer red To Contact Cardiovascular Disease MARIA DEL ROSARIO Escamilla [facility] Erik Jean-Baptiste M.D. [address] [place] [phone] Referral ID Status Reason Start Date Expiration Date Visits Requ ested Visits Authorized [id number] Closed 08/03/2017 08/03/2018 1 1 Reason for Visit Reason Comments Follow-up Yearly follow-up. No chest p ain, no increase in SOB. Continues to have some activity at times. No edema Outpatient (Routine) - Closed Specialty Diagnoses / Procedures Referred By Contact Refer red To Contact Diagnoses Hyperlipidemia Erik Escamilla M.D. [address] [place] [phone] Referral ID Status Reason Start Date Expiration Date Visits Requ ested Visits Authorized [id number] Closed 11/28/2016 05/27/2017 1 1 Encounter Details Date Type Department Care Team Description 08/03/2017 Office Visit Department of Jenny Hayes, Coronary Ar wilbert Disease [place] (Primary Dx); Cardiovascular Diseases Erik Jean-Baptiste M.D. Hyperlipidemia; in [place], [address] [place] [address] Arthritis Rheumatoid (HCC); [place], [place] Diabetes Mellitus Type 2 (HC C); [address] [place] [address] [facility] Nightmare Disorder ABEBA DENNEY [phone] (Work) [phone] Social History Tobacco Use Types Packs/Day Years [...] Amato M.D. - 08/03/2017 9:30 AM CDT [facility] Reason for the visit: Follow-up on chronic stable coronary artery disease, medication review, new diagnosis of rheumatoid arthritis History of Present Illness: Had the pleasure meeting with Mrs Adams, a delightful 72-year-old community dwelling, independent senior, well known to the Cardiology practice here at [facility] mainly due to a history of established [...] [facility] [...] drug-eluting stent to the LAD in 2015, Lyman Class 1 # 2 Type 2 diabetes [...] Cardiovascular Disease Maritza Currie M.D. [address] [place] [address] [phone] (Wo rk) 01/16/2022 Appointment Radiology Vignesh Crurie M.D. [address] [place] [address] [phone] (Wo rk) 01/16/2022 Appointment Cardiovascular Disease Maritza Currie M.D. [address] [place] [address] [phone] (Wo rk) 01/16/2022 Appointment Radiology Vignesh Currie M.D. [address] [place] [phone] (Wo rk) 01/16/2022 Appointment Cardiovascular Disease Maritza Currie M.D. [address] [place] [address] [phone] (Wo rk) Scheduled Referrals Name [...] Signature Ventricular Rate 83 BPM MUSE ECG/Min [place] Interval 144 ms MUSE QRSD Interval 84 ms MUSE QT Interval 362 ms MUSE QTC Interval 425 ms MUSE P [place] 62 degrees MUSE R [place] -20 degrees MUSE T Wave [place] 79 degrees MUSE Specimen Anatomical Collection Method [...] Signature Ventricular Rate 78 BPM MUSE ECG/Min [place] Interval 136 ms MUSE QRSD Interval 80 ms MUSE QT Interval 378 ms MUSE QTC Interval 430 ms MUSE P [place] 59 degrees MUSE R [place] -13 degrees MUSE T Wave [place] 74 degrees MUSE Specimen Anatomical Collection Method [...] encounter Visit Diagnoses Diagnosis Coronary Artery Disease Creek Vessel - Primary Hyperlipidemia Arthritis Rheumatoid (HCC) Diabetes Mellitus Type 2 (HCC) Nightmare Disorder Hyperlipidemia Arthritis Rheumatoid (HCC) Coronary Artery Disease [place] Diabetes Mellitus Type 2 (HCC) documented in this encounter Additional Health Concerns Assessment Noted Time PHQ-9 Depression Total Score: 7 06/21/2014 9:20 AM CDT documented as of this encounter
--- OUTSIDE RECORDS SUMMARY | 2021-12-10 15:06 | XMS_ITS | Encounter Summary ---
:1945 Author Organization [facility] Address [address] [place] [address] Care Team Providers Name Role Phone Unavailable Primary Care Provider Unavailable Reason for Visit Reason Comments Hyperglycemia blood sugar at 2115 536 has taken an extra glypizide at 2105. is not insulin dependent but had a dose of IV steroids around 1300 for arthritis flare. Encounter Details Date Type Department Care Team Description 05/25/2017 Emergency [place] [facility] Juan Urias Hyperglycemia (Primary Department R, M.D. Dx) [address] [place] [phone] Social History Tobacco Use Types Packs/Day Years [...] cannot be sent through Care Everywhere. Hyperglycemia (Yakut)documented in this encounter Medications at Time of [...] Cardiovascular Disease Maritza Currie M.D. [address] [place], [place] [phone] ([place]) 01/16/2022 Appointment Radiology Vignesh Currie M.D. [address] [place], [place] [phone] ([place]) 01/16/2022 Appointment Cardiovascular Disease Maritza Currie M.D. [address] [place], [place] [phone] (Wo rk) 01/16/2022 Appointment Radiology Vignesh Currie M.D. [address] [place], [place] [phone] (Wo rk) 01/16/2022 Appointment Cardiovascular Disease Maritza Currei M.D. [address] [place], [place] [phone] (Wo rk) documented as [...] POCT, 399 (H) 70 - 140 05/25/2017 [facility] B mg/dL 10:50 PM CDT [facility] Specimen Anatomical Collection Method Collection Time Receive d Time (Source) Location / / Volume Laterality Blood 05/25/2017 10:50 05/25/2017 PM CDT 10:56 PM CDT Generic [facility]als LAB POCT ORDERABLES-MANUAL Performing Organization Address [facility] Code Phon e Number [address] [address] [place] [employer] LAB (ABNORMAL) VBG (Venous Blood Gas), POCT (05/25/2017 10:42 PM CDT) [facility] Method Time Signature pH, Venous, 7.39 7.32 - 7.43 05/25/2017 [facility] POCT, B 10:42 PM CDT [facility] pCO2, Venous, 32 (L) 41 - 51 mm Hg 05/25/2017 [facility] POCT, B 10:42 PM CDT [facility] pO2, Venous, 55 Not applicable 05/25/2017 [facility] POCT, B mm Hg 10:42 PM T [facility] HCO3, Venous, 20 Not applicable 05/25/2017 [facility] POCT, B mmol/L 10:42 PM CDT [facility] [employer] [facility] Base Excess, -5 Not applicable 05/25/2017 [facility] Venous, POCT, mmol/L 10:42 PM T [facility] [place] [employer] [facility] O2 Saturation, 88 Not applicable 05/25/2017 [facility] Venous, POCT, % 10:42 PM T [facility] [place] [employer] [facility] Sample Type, RAJI 05/25/2017 [facility] Blood Gas, 10:42 PM CDT [facility] [place] [employer] [facility] FIO2, POCT 0.00 [id number] 05/25/2017 [facility] 10:42 PM CDT [facility] [place] [employer] [facility] Comment: ----ADDITIONAL INFORMATION---- Performed at the Point of Care Specimen Anatomical Collection Method Collection Time Receive d Time (Source) Location / / Volume Laterality Blood 05/25/2017 10:42 05/25/2017 PM CDT 10:53 PM CDT Generic [facility] POCT ORDERABLES - DEVICE Performing Organization Address [facility]/ZIP Code Phon e Number [facility]- [address] [place] [id number] [place] [employer] [facility] (ABNORMAL) Microscopic Manual (05/25/2017 10:24 PM CDT) athologist Signature White Blood 4-10 /hpf 05/25/2017 [facility] Cells 10:49 PM CDT [facility] [employer] [facility] Comment: ----REFERENCE VALUE---- Males: 0-3 Females: 0-10 Unknown: 0-10 Red Blood Cells Occ-2 0 - 2 /hpf 05/25/2017 10:49 PM CDT [facility] [employer] [facility] Hyaline Casts Occasional /lpf 05/25/2017 10:[address] [facility] [place] [employer] [facility] Squamous Cells Occ-3 /hpf 05/25/2017 10:[address] [facility] [place] [employer] [facility] Bacteria Present (A) None Seen 05/25/2017 10:49 PM CDT [facility] [place] [employer] [facility] Specimen Anatomical Collection Method Collection Time Receive d Time (Source) Location / / Volume Laterality Urine 05/25/2017 10:24 05/25/2017 PM CDT 10:29 PM CDT Juan Urias M.D. LAB URINE ORDERABLES Performing Organization Address City/State/[facility] Code Phon e Number [facility]- [address] [place] [phone] [place] [address] [employer] [facility] (ABNORMAL) Urinalysis with Microscopic if Indicated (05/25/2017 10:24 PM CDT) athologist Signature Source Midstream 05/25/2017 [facility] 10:29 PM CDT [facility] [place] [employer] [facility] Clarity Clear Clear 05/25/2017 [facility] 10:29 PM CDT [facility] [place] [employer] [facility] Color Yellow 05/25/2017 [facility] 10:29 PM CDT [facility] [employer] [facility] Comment: ----REFERENCE VALUE---- Colorless Yellow Zoey Blood Trace (A) Negative 05/25/2017 10:29 PM CDT [facility] [place] [employer] [facility] Nitrite Negative Negative 05/25/2017 10:29 PM CDT [facility] [place] [employer] [facility] Leukocyte Esterase Trace (A) Negative 05/25/2017 10:29 PM CDT [facility] [employer] [facility] Protein Negative mg/dL 05/25/2017 10:29 PM CDT [facility] Comment: ----REFERENCE VALUE---- Negative Trace Glucose >=1000 (A) Negative mg/dL 05/25/2017 10:29 PM [facility] Ketones, QL(U) Trace (A) Negative mg/dL 05/25/2017 10:29 PM [facility] Bilirubin Negative Negative 05/25/2017 10:29 PM [facility] pH 5.0 5.0 - 8.0 05/25/2017 10:29 PM [facility] LAB Specific [place] 1.010 1.001 - 1.035 05/25/2017 10:29 PM [facility] Urobilinogen 0.2 0.2 - 1.0 mg/dL 05/25/2017 10:29 PM [facility] Specimen Anatomical Collection Method Collection Time Receive d Time (Source) Location / / Volume Laterality Urine (Urine, 05/25/2017 10:24 05/25/2017 Clean Catch) PM CDT 10:24 PM CDT Juan Urias M.D. LAB URINE ORDERABLES Performing Organization Address City/[facility]/ZIP Code Phon e Number [address] [address] [place] LAB (ABNORMAL) Glucose, POCT (05/25/2017 10:11 PM CDT) P athologist Signature Glucose, POCT, 441 (H) 70 - 140 05/25/2017 [facility] B mg/dL 10:11 PM ED [facility] Specimen Anatomical Collection Method Collection Time Receive d Time (Source) Location / / Volume Laterality Blood 05/25/2017 10:11 05/25/2017 PM CDT 10:19 PM CDT Generic [facility] LAB POCT ORDERABLES-MANUAL Performing Organization Address City/[facility]/ZIP [facility] Phon e Number [address] [id number] [place] LAB (ABNORMAL) CMP (Comprehensive Metabolic Panel) (05/25/2017 9:52 PM CDT) [facility] Time Signature Potassium, P 4.5 3.6 - 5.2 05/25/2017 [facility] mmol/L 10:21 [facility] Sodium, P 130 (L) 135 - 145 05/25/2017 [facility] mmol/L 10:21 [facility] Chloride, P 92 (L) 98 - 107 05/25/2017 [facility] mmol/L 10:21 [facility] Bicarbonate, P 19 (L) 22 - 29 05/25/2017 [facility] mmol/L 10:21 [facility] Anion Gap, P 19 (H) 7 - 15 05/25/2017 [facility] 10:21 [facility] BUN (Blood Urea 38 (H) 6 - 21 05/25/2017 [facility] Nitrogen), P mg/dL 10:21 [facility] Creatinine 1.05 (H) 0.59 - 05/25/2017 [facility] 1.04 mg/dL 10:21 [facility] eGFR-Black/Afri 62 >=60 05/25/2017 [facility] can [place] mL/min/BSA 10:21 [facility] Comment: ----ADDITIONAL INFORMATION---- Estimated GFR calculated using the 2009 CKD_EPI creatinine equation. eGFR Non-Black/ 54 (L) >=60 mL/min/BSA 05/25/2017 10:21 [facility] [place] [facility] [place] [employer] [facility] Comment: ----ADDITIONAL INFORMATION---- Estimated GFR calculated using the 2009 CKD_EPI creatinine equation. Calcium, Total, P 9.0 8.9 - 10.1 05/25/2017 10:21 [facility] mg/dL [facility] Glucose, P 499 (CH) 70 - 140 mg/dL 05/25/2017 10:21 [facility] Protein, Total, P 7.2 6.3 - 7.9 g/dL 05/25/2017 10:21 [facility] Albumin, P 3.7 3.5 - 5.0 g/dL 05/25/2017 10:21 [facility] Aspartate 21 8 - 43 U/L 05/25/2017 10:21 [facility] Aminotransferase (AST), P PM CDT [facility] Alkaline Phosphatase, P 74 55 - 142 U/L 05/25/2017 10 :21 [facility] Alanine Aminotransferase 20 7 - 45 U/L 05/25/2017 10: 21 [facility] (ALT), P PM T [facility] Bilirubin, Total, P <0.2 <=1.2 mg/dL 05/25/2017 10:21 [facility] Specimen Anatomical Collection Method Collection Time Receive d Time (Source) Location / / Volume Laterality Blood (Blood, 05/25/2017 9:52 PM 05/26/19 18 9:52 Venous) CDT PM CDT Juan Urias M.D. LAB BLOOD ADD-ON Performing Organization Address City/[facility] Phon e Number [facility]- [address] [place] [phone] [place] [address] LAB (ABNORMAL) CBC with Differential (05/25/2017 9:52 PM CDT) [facility] Method Time Signature Hemoglobin 11.0 (L) 11.6 - 05/25/2017 [facility] 15.0 g/dL 10:07 PM ED [facility] Hematocrit 33.3 (L) 35.5 - 05/25/2017 [facility] 44.9 % 10:07 PM ED [facility] Erythrocytes 3.55 (L) 3.92 - 05/25/2017 [facility] 5.13 10:07 PM [facility] x10(12)/L [facility] MCV 93.8 78.2 - 05/25/2017 [facility] 97.9 fL 10:07 PM ED [facility] RBC Distrib Width 13.0 12.2 - 05/25/2017 [facility] 16.1 % 10:07 PM ED [facility] Platelet Count 235 157 - 371 05/25/2017 [facility] x10(9)/L 10:07 PM CDT [facility] Leukocytes 8.9 3.4 - 9.6 05/25/2017 [facility] x10(9)/L 10:07 PM CDT [facility] Neutrophils 8.56 (H) 1.56 - 05/25/2017 [facility] 6.45 10:07 PM CDT [facility] x10(9)/L [facility] [employer] [facility] Lymphocytes 0.22 (L) 0.95 - 05/25/2017 [facility] 3.07 10:07 PM CDT [facility]ALTH x10(9)/L [facility] Monocytes 0.09 (L) 0.26 - 05/25/2017 [facility] 0.81 10:07 PM CDT [facility]ALTH x10(9)/L [facility] Eosinophils 0.01 (L) 0.03 - 05/25/2017 [facility] 0.48 10:07 PM CDT HEALTH x10(9)/L [facility] [employer] [facility] Basophils 0.01 0.01 - 05/25/2017 [facility] 0.08 10:07 PM CDT HEALTH x10(9)/L [facility] [employer] [facility] Specimen Anatomical Collection Method Collection Time Receive d Time (Source) Location / / Volume Laterality Blood (Blood, 05/25/2017 9:52 PM 05/26/19 18 9:52 Venous) CDT PM CDT Juan Urias M.D. LAB BLOOD ADD-ON Performing Organization Address City/[facility]/ZIP Code Phon e Number [facility]- [address] [place] [phone] [place] [address] LAB Blood Gas, POCT (05/25/2017 1:38 PM CDT) Analysis Performed At Patho logist Time Signature Blood Gas, Collected 05/27/2017 [facility] POCT, B 1:38 PM CDT [facility] Specimen Anatomical Collection Method Collection Time Receive d Time (Source) Location / / Volume Laterality Blood (Other, 05/25/2017 1:38 PM 05/28/19 18 1:38 Specify in CDT PM CDT Comments) Juan Urias M.D. LAB POCT ORDERABLES - DEVICE Performing Organization Address City/State/ZIP Code Phon e Number [facility] [id number] [address] [place] [facility] documented in this encounter Visit Diagnoses Diagnosis Hyperglycemia - Primary documented in this encounter Additional Health Concerns Assessment Noted Time PHQ-9 Depression Total Score: 7 06/21/2014 9:20 AM CDT documented as of this encounter
--- OUTSIDE RECORDS SUMMARY | 2021-12-10 15:06 | XMS_ITS | Encounter Summary ---
:1945 Author Organization [facility] Address [address] [place] [address] Care Team Providers Name Role Phone Unavailable Primary Care Provider Unavailable Encounter Details Date Type Department Care Team Description 07/27/2015 Hospital Encounter [facility] Gail Ge M.D. [address] [phone] (Wo rk) Social History Tobacco [...] Summary-Paper Based CODING DATE: 07/30/2015 FINAL [facility] STATUS: * Discharged to Home or [...] CHAN Date Saved: 07/30/2015 10:50 am Source: [employer] Document Id: [id number] documented in this encounter Plan of Treatment Upcoming Encounters Date Type Specialty Care Team Description 12/26/2021 Office Visit Cardiovascular Disease Maritza Currie M.D. [address] [place] [phone] ([place]) 01/16/2022 Appointment Radiology Vignesh Currie M.D. [address] [place] [phone] ([place]) 01/16/2022 Appointment Cardiovascular Disease Maritza Currie M.D. [address] [place] [phone] ([place]) 01/16/2022 Appointment Radiology Vignesh Currie M.D. [address] [place] [phone] ([place]) 01/16/2022 Appointment Cardiovascular Disease Maritza Currie M.D. [address] [place] [phone] ([place]) documented as of this encounter Visit Diagnoses Not on filedocumented in this encounter Additional Health Concerns Assessment Noted Time PHQ-9 Depression Total Score: 7 06/21/2014 9:20 AM CDT documented as of this encounter
--- OUTSIDE RECORDS SUMMARY | 2021-12-10 15:06 | XMS_ITS | Encounter Summary ---
:1945 Author Organization [facility] Address [address] [place] [address] Care Team Providers Name Role Phone Unavailable Primary Care Provider Unavailable Reason for Visit Reason Onset Date Comments orders needed 06/24/2017 Encounter Details Date Type Department Care Team Description 06/24/2017 Clinical Communication Department of whitney Escamilla needed Cardiovascular Diseases Erik Jean-Baptiste M.D. in [place] [id number] th [id number] [place] [address] [phone] (Work) [phone] Social History Tobacco Use Types Packs/Day Years [...] PM CDT There is a request in [facility] appointment to see Erik Amato. But it says she needs to have an EKG first. So can this be ordered and then have someone call her to set it up. Thank You. documented in this encounter Plan of Treatment Upcoming Encounters Date Type Specialty Care Team Description 12/26/2021 Office Visit Cardiovascular Disease Maritza Currie M.D. [address] [place] [phone] (Wo rk) 01/16/2022 Appointment Radiology Vignesh Currie M.D. [address] [place] [phone] (Wo rk) 01/16/2022 Appointment Cardiovascular Disease Maritza Currie M.D. [address] [place] [phone] (Wo rk) 01/16/2022 Appointment Radiology Vignesh Currie M.D. [address] [place] [phone] (Wo rk) 01/16/2022 Appointment Cardiovascular Disease Maritza Currie M.D. [address] [place] [phone] (Wo rk) documented as of this encounter Visit Diagnoses Not on filedocumented in this encounter Additional Health Concerns Assessment Noted Time PHQ-9 Depression Total Score: 7 06/21/2014 9:20 AM CDT documented as of this encounter
--- OUTSIDE RECORDS SUMMARY | 2021-12-10 15:06 | XMS_ITS | Encounter Summary ---
:1945 Author Organization [facility] Address [address] [place] [address] Care Team Providers Name Role Phone Unavailable Primary Care Provider Unavailable Encounter Details Date Type Department Care Team Description 09/02/2016 Hospital Encounter [facility] Mohan Germain M.D., Ph.D. [address] [place], [place] [phone] (Wo rk) Social History [...] Based CODING DATE: 09/08/[address] [facility] STATUS: * Discharged to Home or Self Care PAYOR: Medicare ADMIT DX: REASON FOR VISIT DX: FINAL DX: PRINCIPAL: R42 Dizziness and giddiness SECONDARY: I25.10 Atherosclerotic heart disease of crow coronary artery without angina pectoris R06.02 Shortness of breath PROCEDURES DOCTOR NAME DATE NOTE: The code number assigned matches the documented diagnosis and / or procedure in the patient's chart. However, the narrative phrase printed from the coding software may appear abbreviated, or result in slightly different terminology. Coded By: SERGIO COTTO Date Saved: 09/08/2016 06:04 pm Source: [employer] Document Id: [id number] documented in this encounter Plan of Treatment Upcoming Encounters Date Type Specialty Care Team Description 12/26/2021 Office Visit Cardiovascular Disease Maritza Currie M.D. [address] [place], [place] [phone] ([place]) 01/16/2022 Appointment Radiology Vignesh Currie M.D. [address] [place] [phone] ([place]) 01/16/2022 Appointment Cardiovascular Disease Maritza Currie M.D. [address] [place] [address] [phone] ([place]) 01/16/2022 Appointment Radiology Vignesh Currie M.D. [address] [place] [address] [phone] (Jean rk) 01/16/2022 Appointment Cardiovascular Disease Maritza Currie M.D. [address] [place] [phone] (Wo rk) documented as of this encounter Visit Diagnoses Not on filedocumented in this encounter Additional Health Concerns Assessment Noted Time PHQ-9 Depression Total Score: 7 06/21/2014 9:20 AM CDT documented as of this encounter
--- OUTSIDE RECORDS SUMMARY | 2021-12-10 15:07 | XMS_ITS | Encounter Summary ---
:1945 Author Organization [facility] Address [address] [place] [address] Care Team Providers Name Role Phone Unavailable Primary Care Provider Unavailable Encounter Details Date Type Department Care Team Description 06/26/2014 Hospital Encounter HX [facility] Nicki Holt, MAL, C.N.P., D.N.P. [address] [place], [place] [phone] (Wo rk) Social History [...] 81 mg by mouth daily. Take 0 11/13/2021 with food for heart health. documented as of this encounter Miscellaneous Notes Miscellaneous - Nicki Holt, D.N.P., C.N.P. - 06/27/2014 11:42 AM CDT Normal Results Letter 27 Jun 2014 ARCHIE BAZAN [address] [place] [phone] Dear ARCHIE BAZAN, I am pleased to report that your stool test was negative for blood (normal results!!!)!!!!! I hope you are doing well and enjoying some warmer weather! (Thinking of you every time I put my girl to bed with her butterfly blanket!!!!!!!!!!) Take care! Result Name Current Result Normal Range FIT/Fecal Occult Bld-[place] Negative 06/25/2014 Negative - Sincerely, NICKI HOLT [address] [place] [address] Electronic Signature Electronically Signed By: NICKI HOLT DNP, PIG [employer] LOADER On: 27 Jun 2014 This document has images extracted. Source: [employer] Document Id: [id number] Miscellaneous - Conversion, Historical Provider Ser - 06/26/2014 11:59 PM CDT Coding Summary-Paper Based CODING DATE: 07/06/2014 FINAL [facility] STATUS: * Discharged to Home or [...] Revised Date Saved: 07/06/2014 08:07 am Source: [employer] Document Id: [id number] documented in this encounter Plan of Treatment Upcoming Encounters Date Type Specialty Care Team Description 12/26/2021 Office Visit Cardiovascular Disease Maritza Currie M.D. [address] [place], [place] [phone] (Wo rk) 01/16/2022 Appointment Radiology Vignesh Currie M.D. [address] [place] [phone] (Wo rk) 01/16/2022 Appointment Cardiovascular Disease Maritza Currie M.D. [address] [place] [phone] (Jean rk) 01/16/2022 Appointment Radiology Vignesh Currie M.D. [address] [place] [address] [phone] (Jean rk) 01/16/2022 Appointment Cardiovascular Disease Maritza Currie M.D. [address] [place] [phone] ([place]) documented as of [...] tect upper gastrointestinal bleeding; the HemoQuant test ([id number])should be ordered if clinically indicated. Test Performed by: [address] [address] Fl[address] Buffer: Pradeep Parikh II, M.D., Ph.D. Specimen (Source) [...]
--- OUTSIDE RECORDS SUMMARY | 2021-12-10 15:07 | XMS_ITS | Encounter Summary ---
:1945 Author Organization [facility] Address [address] [place] [address] Care Team Providers Name Role Phone Unavailable [...] Visit Cardiovascular Disease Maritza Currie M.D. [address] [place], [place] [phone] ([place]) 01/16/2022 Appointment Radiology Vignesh Currie M.D. [address] [place] [phone] ([place]) 01/16/2022 Appointment Cardiovascular Disease Maritza Currie M.D. [address] [place] [address] [phone] ([place]) 01/16/2022 Appointment Radiology Vignesh Currie M.D. [address] [place], [place] [phone] (Wo rk) 01/16/2022 Appointment Cardiovascular Disease Maritza Currie M.D. [address] [place], [place] [phone] (Wo rk) documented as of this encounter Visit Diagnoses Not on filedocumented in this encounter Additional Health Concerns Assessment Noted Time PHQ-9 Depression Total Score: 7 06/21/2014 9:20 AM CDT documented as of this encounter
--- OUTSIDE RECORDS SUMMARY | 2021-12-10 15:07 | XMS_ITS | Encounter Summary ---
:1945 Author Organization [facility] Address [address] [place] [address] Care Team Providers Name Role Phone Unavailable Primary Care Provider Unavailable Encounter Details Date Type Department Care Team Description 02/05/2015 Hospital Encounter HX [facility] CARDIOLOG Mona Lemus M.D. [address] [place] [phone] (Wo rk) Social History Tobacco Use Types [...] Comments Blood Pressure 128/68 02/05/2015 2:12 PM ROTARY DRILLER HELPER Pulse 74 02/05/2015 2:12 PM ROTARY DRILLER HELPER Temperature - - Respiratory Rate - - Oxygen Saturation - - Inhaled Oxygen Concentration - - Weight 85.8 kg (189 lb 2.5 oz) 02/05/2015 2:12 PM ROTARY DRILLER HELPER Height 158 cm (5' 2.21) 02/05/2015 2:12 PM ROTARY DRILLER HELPER Body Mass Index 34.37 02/05/2015 2:12 PM ROTARY DRILLER HELPER documented in this encounter Medications at [...] Lemus M.D. - 02/05/2015 1:50 PM CST [facility] PRIMARY CARE PROVIDER Gail Peguero MD. [...] LEMUS MD On: 03/19/2015 09:14 AM Source: [facility] MHSDOLBEYNONRADSYS Document Id: [id number] RY DRILLER HELPER documented in this encounter Miscellaneous Notes Miscellaneous - Annie Jones, R.N. - 02/05/2015 2:12 PM CST Adult Director Treasurer Intake/History Document Has Been Updated Adult Director Treasurer Intake/History Entered On: 02/05/2015 14:14 ROTARY DRILLER HELPER Performed On: 02/05/2015 14:12 ROTARY DRILLER HELPER by ANNIE JONES news anchor Chief Complaint : Follow up Peripheral Pulse [...] kg/m2 ANNIE JONES RN - 02/05/2015 14:12 ROTARY DRILLER HELPER General Info Languages : Zambian Is Patient Female and 13-50 no hysterectomy : No ANNIE JONES RN - 02/05/2015 14:12 ROTARY DRILLER HELPER Subjective Pain Symptoms : No ANNIE JONES RN - 02/05/2015 14:12 ROTARY DRILLER HELPER Dependent Habits Exposure to Tobacco Smoke : Care provider denies smoking in home, Other: never Smoking Status : Never smoker Tobacco 2A : No ANNIE JONES RN - 02/05/2015 14:12 ROTARY DRILLER HELPER Caffeine Use Grid Caffeine Use : Past Type : Coffee, Soft drinks Frequency : Occasionally Amount : 1 cup per week ANNIE JONES RN - 02/05/2015 14:12 ROTARY DRILLER HELPER Recreational Drug Use Grid Drug Use : None ANNIE JONES RN - 02/05/2015 14:12 ROTARY DRILLER HELPER Allergy (As Of: 02/05/2015 14:15:01 ROTARY DRILLER HELPER) Allergies (Active) azithromycin Estimated Onset Date: Unspecified ; Created By: PETRA RUSSELL LPN; Reaction Status: Active ; Category: Drug ; Substance: azithromycin ; Type: Allergy ; Updated By: PETRA RUSSELL LPN; Reviewed Date: 02/01/2015 12:40 ROTARY DRILLER HELPER Benicar Estimated Onset Date: Unspecified ; Created By: PETRA RUSSELL LPN; Reaction Status: Active ; Category: Drug ; Substance: Benicar ; Type: Allergy ; Updated By: PETRA RUSSELL LPN; Reviewed Date: 02/01/2015 12:40 ROTARY DRILLER HELPER Diabetes Intake Do You Have Diabetes : Yes How long have you had diabetes? : More than one year Do you take pills for your diabetes? : Yes Do you check your own blood sugars? : Yes Blood Sugar High : 195 Blood Sugar Low : 80 Have you had low sugar spells? : Yes ANNIE JONES RN - 02/05/2015 14:12 ROTARY DRILLER HELPER Source: [facility] POWERCHART Document Id: [id number] ROTARY DRILLER HELPER!39 RY DRILLER HELPER documented in this encounter Plan of Treatment Upcoming Encounters Date Type Specialty Care Team Description 12/26/2021 Office Visit Cardiovascular Disease Maritza Currie M.D. [address] [place] [address] [phone] (Wo rk) 01/16/2022 Appointment Radiology Vignesh Currie M.D. [address] [place] [address] [phone] (Wo rk) 01/16/2022 Appointment Cardiovascular Disease Maritza Currie M.D. [address] [place] [address] [phone] (Wo rk) 01/16/2022 Appointment Radiology Vignesh Currie M.D. [address] [place] [address] [phone] (Wo rk) 01/16/2022 Appointment Cardiovascular Disease Maritza Currie M.D. [address] [place] [address] [phone] (Wo rk) documented as of this encounter Visit Diagnoses Not on filedocumented in this encounter Additional Health Concerns Assessment Noted Time PHQ-9 Depression Total Score: 7 06/21/2014 9:20 AM CDT documented as of this encounter
--- OUTSIDE RECORDS SUMMARY | 2021-12-10 15:07 | XMS_ITS | Encounter Summary ---
:1945 Author Organization [facility] Address [address] [place] [address] Care Team Providers Name Role Phone Unavailable Primary Care Provider Unavailable Encounter Details Date Type Department Care Team Description 01/24/2015 Hospital Encounter HX [facility] FAMILY [place] Gail Garrison M.D. [address] [place] [phone] (Wo rk) Social History Tobacco Use [...] Comments Blood Pressure 122/70 01/24/2015 11:33 AM RAILROAD CAR PAINTER Pulse 70 01/24/2015 11:33 AM RAILROAD CAR PAINTER Temperature - - Respiratory Rate 16 01/24/2015 11:33 AM RAILROAD CAR PAINTER Oxygen Saturation - - Inhaled Oxygen Concentration - - Weight 86 kg (189 lb 9.5 oz) 01/24/2015 11:33 AM RAILROAD CAR PAINTER Height 158 cm (5' 2.21) 01/24/2015 11:33 AM RAILROAD CAR PAINTER Body Mass Index 34.45 01/24/2015 11:33 AM RAILROAD CAR PAINTER documented in this encounter Medications at Time [...] mg, 1 tab(s), Take with food for Widespace., PO, Daily, 0 refills Cinnamon 500 mg [...] Ordered: OV Est Pt Level 4 - 77659 - 25 min 2. Palpitations Patient reports symptoms of palpitations and not feeling well. We placed a Holter monitor today to help determine if patient is having any arrhythmias that are contributing. Ordered: OV Est Pt Level 4 - 18365 - 25 min 3. Anxiety NOS At this point, will not make any changes to patient's Xanax. Once we know more about her cardiac status, we may make changes if her anxiety continues to be an issue. Ordered: OV Est Pt Level 4 - 80082 - 25 min Orders: Holter Monitor 48Hr Electronically Signed By: GAIL VILLAR MD On: 01/24/2015 09:31 PM Source: [facility] POWERCHART Document Id: [id number] ROAD CAR PAINTER documented in this encounter Miscellaneous Notes Miscellaneous - Gail Cortez M.D. - 01/24/2015 12:07 PM RAILROAD CAR PAINTER Ambulatory Patient Summary [address] [id number] Visit Information Name: ARCHIE BAZAN [facility] Number: [id number] Current Date: 01/24/2015 12:07:07 [...] if you dont have one. Go to [email or web address] and click on Create Your Account. Then, follow the directions to complete the online form. Youll be asked for your [facility] number which you can find at the top of this document. Your Goals/Additional instructions: Source: [facility] POWERCHART Document Id: [id number] ROAD CAR PAINTER Miscellaneous - Gail Cortez M.D. - 01/24/2015 12:07 PM RAILROAD CAR PAINTER Ambulatory Discharge Medication List [address] [id number] Visit Information Name: ARCHIE BAZAN [facility] Number: [id number] Visit Date: 01/24/2015 12:07:05 [...] MD Signed On:24-JAN-2015 12:06:47 Additional Information: Source: [facility] POWERCHART Document Id: [id number] ROAD CAR PAINTER Miscellaneous - Yadira Lomeli, L.P.N. - 01/24/2015 11:33 AM CST Adult Airfield Operations Specialist Intake/History Adult Airfield Operations Specialist Intake/History Entered On: 01/24/2015 11:36 RAILROAD CAR PAINTER Performed On: 01/24/2015 11:33 RAILROAD CAR PAINTER by YADIRA LOMELI Intake Chief Complaint : [...] 1.94 Body Mass Index : 34.45 kg/m2 ARMANI YADIRA - 01/24/2015 11:33 RAILROAD CAR PAINTER General Info Information Given By : Patient Languages : Romansh Is Patient Female and 13-50 no hysterectomy : Hailee YADIRA LOMELI - 01/24/2015 11:33 RAILROAD CAR PAINTER Subjective Pain Symptoms : Hailee YADIRA LOMELI - 01/24/2015 11:33 RAILROAD CAR PAINTER Dependent Habits Exposure to Tobacco Smoke : Care provider denies smoking in home, Other: never Smoking Status : Never smoker Tobacco 2A : Hailee YADIRA LOMELI - 01/24/2015 11:33 RAILROAD CAR PAINTER Caffeine Use Grid Caffeine Use : Past Type : Coffee, Soft drinks Frequency : Occasionally Amount : 1 cup per week YADIRA LOMELI - 01/24/2015 11:33 RAILROAD CAR PAINTER Recreational Drug Use Grid Drug Use : None YADIRA LOMELI - 01/24/2015 11:33 RAILROAD CAR PAINTER Source: [facility] Coupoplaces Document Id: [id number] RAILROAD CAR PAINTER!37 ROAD CAR PAINTER documented in this encounter Plan of Treatment Upcoming Encounters Date Type Specialty Care Team Description 12/26/2021 Office Visit Cardiovascular Disease Maritza Currie M.D. [address] [place] [address] [phone] ([place]) 01/16/2022 Appointment Radiology Vignesh Currie M.D. [address] [place] [address] [phone] ([place]) 01/16/2022 Appointment Cardiovascular Disease Maritza Currie M.D. [address] [place] [address] [phone] ([place]) 01/16/2022 Appointment Radiology Vignesh Currie M.D. [address] [place] [address] [phone] ([place]) 01/16/2022 Appointment Cardiovascular Disease Maritza Currie M.D. [address] [place] [address] [phone] (Wo rk) documented as of this encounter Visit Diagnoses Not on filedocumented in this encounter Additional Health Concerns Assessment Noted Time PHQ-9 Depression Total Score: 7 06/21/2014 9:20 AM CDT documented as of this encounter
--- OUTSIDE RECORDS SUMMARY | 2021-12-10 15:07 | XMS_ITS | Encounter Summary ---
:1945 Author Organization [facility] Address [address] [place] [address] Care Team Providers Name Role Phone Unavailable Primary Care Provider Unavailable Encounter Details Date Type Department Care Team Description 07/24/2014 Hospital Encounter HX [facility] FAMILY [place] Gabriel Ne Liu M.D. [address] [place] [phone] (Wo rk) Social History Tobacco Use [...] encounter H&P Notes Ne Cortez M.D. - 07/24/2014 2:02 PM CDT Clinic Full Note CHIEF COMPLAINT/REASON FOR VISIT here to establish and discuss diabetis HISTORY OF PRESENT ILLNESS Marcial presents today to establish care and follow up on her diabetes. She also has a couple other concerns. In regards to her diabetes, last A1c was 6.9 in May. She had this completed elsewhere. She checks her blood sugar zero to two times per day. She saw the family living educator in March and would like to [...] Ordered: OV Est Pt Level 4 - 49645 - 25 min 2. Complaint Memory Patient's symptoms are not progressing and do not sound overly severe. She denied any more significant problems. At this point we will continue to monitor. Ordered: OV Est Pt Level 4 - 10558 - 25 min 3. Rosacea NOS Clindamycin gel was refilled. Ordered: OV Est Pt Level 4 - 01024 - 25 min 4. Hyperlipidemia NOS Patient will be due for lab work in November. Ordered: OV Est Pt Level 4 - 36112 - 25 min 5. Hypothyroidism NOS TSH will be due in November. Ordered: OV Est Pt Level 4 - 59873 - 25 min Orders: clindamycin topical, 1 shauna, Topical, 2xDay, rosacea, # 30 gm, 3 Refill(s), Maintenance, Pharmacy: [facility] Consult to Secretary Receptionist/Nutrition - Clinic Electronically Signed By: NE VILLAR MD On: 07/24/2014 02:05 PM Source: [facility] POWERCHART Document Id: [id number] documented in this encounter Miscellaneous Notes Miscellaneous - Ne Cortez M.D. - 07/24/2014 10:41 AM CDT Ambulatory Patient Summary [address] [place] [id number] Visit Information Name: MARCIAL BAZAN [facility] Number: [id number] Current Date: 07/24/2014 10:41:43 Physicians Attending Provider: NE VILLAR MD Primary [...] times a day rosacea New Routed to [address] [address] glipiZIDE (glipiZIDE 5 mg oral [...] Electronically Signed By: NE VILLAR MD Signed On:24-JUL-2014 10:41:01 Your Allergies [...] Appointments Date Time Location Provider 07/24/2014 11:00 [facility] Bone Dens [facility] BD Rm 1 07/24/2014 11:30 [facility] Mammo [facility] MA Room 1 Attention: Contact your local Clinic if further appointment detail needed. Your Goals/Additional instructions: Future Appointment: _ Lab: _ Radiology: _ Need Prior Auth: _ NO Prior Auth: _ Consult: Secretary Receptionist Release of MR_ PHI_ Source: [facility] POWERCHART Document Id: [id number] Miscellaneous - Ne Cortez M.D. - 07/24/2014 10:41 AM CDT Ambulatory Discharge Medication List [address] [place] [id number] Visit Information Name: MARCIAL BAZAN [facility] Number: [id number] Visit Date: 07/24/2014 10:41:41 Attending Provider: NE VILLAR MD Primary Care [...] times a day rosacea New Routed to [address] [address] glipiZIDE (glipiZIDE 5 mg oral tablet) 0.5 [...] Electronically Signed By: NE VILLAR MD Signed On:24-JUL-2014 10:41:01 Additional Information: Source: [facility] POWERCHART Document Id: [id number] Miscellaneous - Maria C Wilson, L.P.NJairo - 07/24/2014 10:00 AM CDT Adult Air Intercept Controller Supervisor Intake/History Adult Air Intercept Controller Supervisor Intake/History Entered On: 07/24/2014 10:03 CDT Performed On: 07/24/2014 10:00 CDT by MARIA C WILSON LPN Intake Chief Complaint : here [...] 34.13 kg/m2 MARIA C WILSON LPN - 07/24/2014 10:00 CDT General Info Information Given By : Patient Languages : Tristanian Is Patient Female and 13-50 no hysterectomy : No MARIA C WILSON LPN - 07/24/2014 10:00 CDT Subjective Pain Symptoms : No MARIA C WILSON VERSE WRITER - 07/24/2014 10:00 CDT Dependent Habits Tobacco Use/Currently Using : No Exposure to Tobacco Smoke : Care provider denies smoking in home Smoking Status : Never smoker MARIA C WILSON Terri VERSE WRITER - 07/24/2014 10:00 CDT Tobacco Use Grid Last Use : never MARIA C WILSON Terri NIX - 07/24/2014 10:00 CDT Alcohol Use : No ZHOUULICESMARIA C VERSE WRITER - 07/24/2014 10:00 CDT Caffeine Use Grid Caffeine Use : None Type : Coffee, Soft drinks Frequency : Occasionally Amount : 1 cup per week MARIA C WILSON Terri VERSE WRITER - 07/24/2014 10:00 CDT Recreational Drug Use Grid Drug Use : None STEVE MARIA C Murray VERSE WRITER - 07/24/2014 10:00 CDT Source: [employer] Document Id: [id number] CDT!40 documented in this encounter Plan of Treatment Upcoming Encounters Date Type Specialty Care Team Description 12/26/2021 Office Visit Cardiovascular Disease Maritza Currie M.D. [address] [place] [address] [phone] ([place]) 01/16/2022 Appointment Radiology Vignesh Currie M.D. [address] [place] [address] [phone] ([place]) 01/16/2022 Appointment Cardiovascular Disease Maritza Currie M.D. [address] [place] [address] [phone] ([place]) 01/16/2022 Appointment Radiology Vignesh Currie M.D. [address] [place] [address] [phone] ([place]) 01/16/2022 Appointment Cardiovascular Disease Maritza Currie M.D. [address] [place] [address] [phone] (Wo rk) documented as of this encounter Visit Diagnoses Not on filedocumented in this encounter Additional Health Concerns Assessment Noted Time PHQ-9 Depression Total Score: 7 06/21/2014 9:20 AM CDT documented as of this encounter
--- OUTSIDE RECORDS SUMMARY | 2021-12-10 15:07 | XMS_ITS | Encounter Summary ---
:1945 Author Organization [facility] Address [address] [place] [address] Care Team Providers Name Role Phone Unavailable Primary Care Provider Unavailable Encounter Details Date Type Department Care Team Description 03/27/2014 Hospital Encounter HX [facility] [place] Vickey Holt, MAL, C.N.P., D. N.P. [address] [place] [address] (Wo rk) Social History Tobacco [...] Comments Blood Pressure 130/60 03/27/2014 1:36 PM ELECTROENCEPHALOGRAM TECHNOLOGIST Pulse 65 03/27/2014 1:36 PM ELECTROENCEPHALOGRAM TECHNOLOGIST Temperature - - Respiratory Rate 18 03/27/2014 1:36 PM ELECTROENCEPHALOGRAM TECHNOLOGIST Oxygen Saturation - - Inhaled Oxygen Concentration - - Weight 88.2 kg (194 lb 7.1 oz) 03/27/2014 1:36 PM ELECTROENCEPHALOGRAM TECHNOLOGIST Height 158 cm (5' 2.21) 03/27/2014 1:36 PM ELECTROENCEPHALOGRAM TECHNOLOGIST Body Mass Index 35.33 03/27/2014 1:36 PM ELECTROENCEPHALOGRAM TECHNOLOGIST documented in this encounter Medications at Time of Discharge Medication Sig Dispensed Refills Start Date End Date ASPIRIN ORAL Take 81 mg by mouth daily. Take 0 11/13/2021 with food for heart health. documented as of this encounter Progress Notes Vickey Holt D.N.P., C.N.P. - 03/27/2014 1:14 PM CST [id number] CHIEF COMPLAINT/REASON FOR VISIT Follow up type [...] plan. Patient/Child/Caregiver expressed understanding of the content. Vickey Holt D.N.P./F.N.P/aos Electronically Signed By: VICKEY HOLT DNP, FNP On: 03/28/2014 02:41 PM Source: [facility] MHSDOLBEYNONRADSYS Document Id: [id number] TROENCEPHALOGRAM TECHNOLOGIST documented in this encounter Miscellaneous Notes Miscellaneous - Vickey Holt D.N.P., C.N.P. - 03/27/2014 3:37 PM ELECTROENCEPHALOGRAM TECHNOLOGIST Ambulatory Patient Summary [address] [id number] Visit Information Name: ELIDASTEVEN MARCIAL MAI [facility] Number: [id number] Current Date: 03/27/2014 15:37:18 Physicians Attending Provider: VICKEY HOLT DNP, FNP [...] emergency. Electronically Signed By: VICKEY HOLT DNP, RIA Signed On:27-MAR-2014 14:11:05 Your Allergies & Intolerances [...] Appointments Date Time Location Provider 04/24/2014 13:00 [facility] Family [facility] Raj BRENNAN, Vickey Anderson Attention: Contact your local Clinic if further appointment detail needed. Your Goals/Additional instructions: follow up in 1 month for a weight check. Source: [facility] POWERCHART Document Id: [id number] TROENCEPHALOGRAM TECHNOLOGIST Miscellaneous - Vickey Holt D.N.P., C.N.P. - 03/27/2014 3:37 PM ELECTROENCEPHALOGRAM TECHNOLOGIST Ambulatory Discharge Medication List [address] [id number] Visit Information Name: MARCIAL BAZANIEL [facility] Number: [id number] Visit Date: 03/27/2014 15:37:16 Attending Provider: VICKEY HOLT DNP, FNP Primary [...] Signed By: VICKEY HOLT DNP, FNP Signed On:27-MAR-2014 14:11:05 Additional Information: Source: [facility] POWERCHART Document Id: [id number] TROENCEPHALOGRAM TECHNOLOGIST Miscellaneous - Mel Batista LJairoPJairoNJairo - 03/27/2014 1:36 PM CST Adult Counseling Center Manager Intake/History Adult Counseling Center Manager Intake/History Entered On: 03/27/2014 13:41 ELECTROENCEPHALOGRAM TECHNOLOGIST Performed On: 03/27/2014 13:36 ELECTROENCEPHALOGRAM TECHNOLOGIST by MEL BATISTA LPN Intake Chief Complaint [...] kg/m2 MEL BATISTA LPN - 03/27/2014 13:36 ELECTROENCEPHALOGRAM TECHNOLOGIST General Info Information Given By : Patient Languages : Uzbek Is Patient Female and 13-50 no hysterectomy : No MEL BATISTA LPN - 03/27/2014 13:36 ELECTROENCEPHALOGRAM TECHNOLOGIST Subjective Pain Symptoms : Yes MEL BATISTA LPN - 03/27/2014 13:36 ELECTROENCEPHALOGRAM TECHNOLOGIST Pain Scale Pain Scale Verbal 0-10 : Open MEL BATISTA [facility] 03/27/2014 13:36 ELECTROENCEPHALOGRAM TECHNOLOGIST Pain Pain Assessment Grid Pain 1 Location : Abdomen Laterality : Right (Comment: occ [MEL BATISTA [facility] 03/27/2014 13:36 ELECTROENCEPHALOGRAM TECHNOLOGIST] ) Intensity : 1 MEL BATISTA [facility] 03/27/2014 13:36 ELECTROENCEPHALOGRAM TECHNOLOGIST Dependent Habits Tobacco Use/Currently Using : No Exposure to Tobacco Smoke : Care provider denies smoking in home Smoking Status : Never smoker MEL BATISTA Ronak [facility] - 03/27/2014 13:36 ELECTROENCEPHALOGRAM TECHNOLOGIST Tobacco Use Grid Last Use : Never MEL BATISTA Ronak [facility] 03/27/2014 13:36 ELECTROENCEPHALOGRAM TECHNOLOGIST Caffeine Use Grid Caffeine Use : None Frequency : Occasionally Amount : 1 cup per week MEL BATISTA Ronak [facility] 03/27/2014 13:36 ELECTROENCEPHALOGRAM TECHNOLOGIST Recreational Drug Use Grid Drug Use : None MEL BATISTA Ronak [facility] 03/27/2014 13:36 ELECTROENCEPHALOGRAM TECHNOLOGIST ID Screen Drug Resistant Organism : No Travel Within Last 21 Days : No MEL BATISTA Ronak [facility] 03/27/2014 13:36 ELECTROENCEPHALOGRAM TECHNOLOGIST Source: [facility] Document Id: [id number] ELECTROENCEPHALOGRAM TECHNOLOGIST!52 TROENCEPHALOGRAM TECHNOLOGIST documented in this encounter Plan of Treatment Upcoming Encounters Date Type Specialty Care Team Description 12/26/2021 Office Visit Cardiovascular Disease Maritza Currie M.D. [address] [place] [address] [phone] ([place]) 01/16/2022 Appointment Radiology Vignesh Currie M.D. [address] [place] [address] [phone] ([place]) 01/16/2022 Appointment Cardiovascular Disease Maritza Currie M.D. [address] [place] [address] [phone] ([place]) 01/16/2022 Appointment Radiology Vignesh Currie M.D. [address] [place], [place] [phone] ([place]) 01/16/2022 Appointment Cardiovascular Disease Maritza Currie M.D. [address] [place], [place] [phone] ([place]) documented as of this encounter Visit Diagnoses Not on filedocumented in this encounter Additional Health Concerns Assessment Noted Time PHQ-9 Depression Total Score: 1 06/01/2013 1:42 PM CDT documented as of this encounter
--- OUTSIDE RECORDS SUMMARY | 2021-12-10 15:07 | XMS_ITS | Encounter Summary ---
:1945 Author Organization [facility] Address [address] [place] [address] Care Team Providers Name Role Phone Unavailable Primary Care Provider Unavailable Encounter Details Date Type Department Care Team Description 01/26/2015 - Hospital Encounter HX RST Mao Ray, 01/27/2015 Lee, Ph.D. [address] [place] [phone] (Wo rk) Social History Tobacco Use Types [...] 01/27/2015 9:45 AM NIBP - Value from CHEESE PROCESSOR [employer]. Pulse 72 01/27/2015 9:45 AM Value from artplus. CHEESE PROCESSOR Temperature - - Respiratory Rate 16 01/27/2015 9:30 AM Value from C hartplus. CHEESE PROCESSOR Oxygen Saturation - - Inhaled Oxygen - - Concentration Weight 83 kg (182 lb 15.7 01/27/2015 8:00 AM Value from [employer]. oz) CHEESE PROCESSOR Height - - Body Mass Index 33.25 01/26/2015 7:48 AM CHEESE PROCESSOR documented in this encounter Medications at Time [...] Visit Cardiovascular Disease Maritza Currie M.D. [address] [place] [address] [phone] (Wo rk) 01/16/2022 Appointment Radiology Vignesh Currie M.D. [address] [place] [address] [phone] (Wo rk) 01/16/2022 Appointment Cardiovascular Disease Maritza Currie M.D. [address] [place] [address] [phone] (Wo rk) 01/16/2022 Appointment Radiology Vignesh Currie M.D. [address] [place] [address] [phone] (Wo rk) 01/16/2022 Appointment Cardiovascular Disease Martiza Currie M.D. [address] [place] [address] [phone] (Wo rk) documented as of this encounter Procedures Procedure Name Priority Date/Time Associated Comments Diagnosis GLUCOSE POCT, B Routine 01/27/2015 6:26 AM Result s for this CHEESE PROCESSOR procedure are i n the results section. ECG Routine 01/27/2015 5:23 AM Results f or this CHEESE PROCESSOR procedure are i n the results section. CBC WITHOUT Routine 01/27/2015 4:11 AM Results f or this DIFFERENTIAL, B CHEESE PROCESSOR procedure ar e in the results section. CREATININE WITH Routine 01/27/2015 4:11 AM Result s for this EGFR, S/P CHEESE PROCESSOR procedure are i n the results section. GLUCOSE POCT, B Routine 01/26/2015 9:30 PM Result s for this CHEESE PROCESSOR procedure are i n the results section. ACT, POCT, B Routine 01/26/2015 1:50 PM Results f or this CHEESE PROCESSOR procedure are i n the results section. GLUCOSE POCT, B Routine 01/26/2015 11:44 AM Resul ts for this CHEESE PROCESSOR procedure are i n the results section. documented in this encounter Results (ABNORMAL) Glucose, POCT (01/27/2015 6:26 AM CHEESE PROCESSOR) Patholo gist Method Time Signature Glucose, POCT, 145 (H) 70 - 140 [facility] B MG/DL LABORATORIES [facility] Last Intake > 4 hours [facility] Specimen Anatomical Collection Method Collection Time Receive d Time (Source) Location / / Volume Laterality 01/27/2015 6:26 AM 5 6:26 CHEESE PROCESSOR AM CHEESE PROCESSOR Historical Provider LAB POCT ORDERABLES-MANUAL Performing Organization Address City/State/ZIP Code Phon e Number [facility] - [address] [place], [place] [address] [facility] ECG 12 Lead (01/27/2015 5:23 AM CHEESE PROCESSOR) Specimen (Source) Anatomical Collection Method Collection Time Re ceived Time Location / / Volume Laterality 01/27/2015 5:23 AM [facility] RADIOLOGY SYSTEM - 01/27/2015 6:34 AM CHEESE PROCESSOR [id number] 05:23 VENTRICULAR RATE 62 Normal sinus rhythm Nonspecific ST and T wave abnormality When compared with ECG of 26-JAN-2015 08 :09, No significant change was found [id number]^ADONAY SUÁREZ^RULA Law Procedure Note Rula Jacobsen M.B., Ch.B., M.D. - 04/17 [id number] 05:23 VENTRICULAR RATE 62 Normal sinus rhythm Nonspecific ST and T wave abnormality When compared with ECG of 26-JAN-2015 08 :09, No significant change was found [id number]^ADONAY SUÁREZ^RULA Law Nubia Castañeda M.D., Ph.D. ECG ORDERABLES Performing Organization Address City/State/ZIP Code Phon e Number [facility]X [facility] RADIOLOGY SYSTEM [address] [address], U SA Creatinine with Estimated GFR (MDRD) (01/27/2015 4:11 AM CHEESE PROCESSOR) Analysis Performed At Patho logist Time Signature eGFR-Black/Afri >60 >60 [facility] can Croatian ML/MIN/BSA LABORATORIES [facility] Creatinine 0.9 0.6 - 1.1 [facility] MG/DL LABORATORIES - [facility] eGFR >60 >60 [facility] Non-Black/Afric ML/MIN/BSA LABORATORIES - an Croatian [facility] Specimen Anatomical Collection Method Collection Time Receive d Time (Source) Location / / Volume Laterality 01/27/2015 4:11 AM 5 4:11 CHEESE PROCESSOR AM CHEESE PROCESSOR Nubia Castañeda M.D., Ph.D. LAB BLOOD ADD-ON Performing Organization Address City/[facility]/ZIP Code Phon e Number [facility] LABORATORIES - [address] [place] [address] [facility] (ABNORMAL) CBC without Differential (01/27/2015 4:11 AM CHEESE PROCESSOR) [facility] Method Time Signature Hemoglobin 11.3 (L) 12.0 - [facility] 15.5 G/DL [facility] Hematocrit 34.6 (L) 34.9 - [facility] 44.5 % [facility] RBC Distrib 14.0 11.9 - [facility] Width 15.5 % [facility] - [facility] Platelet Count 205 150 - 450 [facility] X10(9)/L [facility] Leukocytes 8.1 3.5 - [facility] 10.5 LABORATORIES - X10(9)/L [facility] Erythrocytes 3.80 (L) 3.90 - [facility] 5.03 LABORATORIES - X10(12)/L [facility] MCV 91.1 81.6 - [facility] 98.3 [place] LABORATORIES - [facility] Specimen Anatomical Collection Method Collection Time Receive d Time (Source) Location / / Volume Laterality 01/27/2015 4:11 AM 5 4:11 CHEESE PROCESSOR AM CHEESE PROCESSOR Nubia Castañeda M.D., Ph.D. LAB BLOOD ADD-ON Performing Organization Address City/State/ZIP Code Phon e Number [facility] LABORATORIES - [address] [place] [address] [facility] (ABNORMAL) Glucose, POCT (01/26/2015 9:30 PM CHEESE PROCESSOR) [facility] Method Time Signature Glucose, 186 (H) 70 - 140 [facility] POCT, B MG/DL LABORATORIES - [facility] Sample Site, Capillary [facility] Blood Gas, LABORATORIES - POCT [facility] Last Intake 3-4 hours [facility] LABORATORIES - [facility] Specimen Anatomical Collection Method Collection Time Receive d Time (Source) Location / / Volume Laterality 01/26/2015 9:30 PM 5 9:30 CHEESE PROCESSOR PM CHEESE PROCESSOR Historical Provider LAB POCT ORDERABLES-MANUAL Performing Organization Address City/[facility]/ZIP Code Phon e Number [facility] LABORATORIES - [address] [place] [address] [facility] ACT (Activated Clotting Time), POCT (01/26/2015 1:50 PM CHEESE PROCESSOR) P athologist Signature Activated 124 84 - 139 [facility] Clotting Time, SEC LABORATORIES - POCT [facility] Specimen Anatomical Collection Method Collection Time Receive d Time (Source) Location / / Volume Laterality 01/26/2015 1:50 PM 5 1:50 CHEESE PROCESSOR PM CHEESE PROCESSOR Historical Provider LAB POCT ORDERABLES - DEVICE Performing Organization Address City/[facility] Phon e Number [facility] LABORATORIES - [address] [place] [address] [facility] Glucose, POCT (01/26/2015 11:44 AM CHEESE PROCESSOR) Patholo gist Method Time Signature Last Intake > 4 hours [facility] LABORATORIES - [facility] Glucose, 113 70 - 140 [facility] POCT, B MG/DL LABORATORIES - [facility] Sample Site, Capillary [facility] Blood Gas, LABORATORIES - POCT [facility] Specimen Anatomical Collection Method Collection Time Receive d Time (Source) Location / / Volume Laterality 01/26/2015 11:44 01/26/2015 AM CHEESE PROCESSOR 11:44 AM CHEESE PROCESSOR Historical Provider LAB POCT ORDERABLES-MANUAL Performing Organization Address City/[facility]/ZIP [facility] Phon e Number [facility] LABORATORIES - [address] [place] [address] [facility] documented in this encounter Visit Diagnoses Not on filedocumented in this encounter Additional Health Concerns Assessment Noted Time PHQ-9 Depression Total Score: 7 06/21/2014 9:20 AM CDT documented as of this encounter
--- OUTSIDE RECORDS SUMMARY | 2021-12-10 15:07 | XMS_ITS | Encounter Summary ---
:1945 Author Organization [facility] Address [address] [place] [address] Care Team Providers Name Role Phone Unavailable Primary Care Provider Unavailable Encounter Details Date Type Department Care Team Description 07/24/2014 Hospital Encounter HX [facility] CAM BONE DENS [place] Gail Liu M.D. [address] [place] [phone] (Wo rk) Social History Tobacco Use [...] Coding Summary-Paper Based CODING DATE: 08/07/2014 FINAL [facility] STATUS: * Discharged to [...] CHAN Date Saved: 08/07/2014 04:04 pm Source: [employer] Document Id: [id number] Miscellaneous - Gail Cortez M.D. - 07/07/2014 [...] again today. From: GAIL VILLAR MD To: [place] [facility] Nurse Scotty; Sent: 07/07/2014 13:59:58 [...] she wants to reschedule. Gail Cm Source: [employer] Document Id: [id number] Electronically signed by Conversion, [facility] Donkey Doctor [id number] at 07/14/2016 2:50 PM CDT documented in this encounter Plan of Treatment Upcoming Encounters Date Type Specialty Care Team Description 12/26/2021 Office Visit Cardiovascular Disease Maritza Currie M.D. [address] [place] [phone] (Wo rk) 01/16/2022 Appointment Radiology Vignesh Currie M.D. [address] [place] [phone] (Wo rk) 01/16/2022 Appointment Cardiovascular Disease Maritza Currie M.D. [address] [place] [address] [phone] (Wo rk) 01/16/2022 Appointment Radiology Vignesh Currie M.D. [address] [place] [phone] (Wo rk) 01/16/2022 Appointment Cardiovascular Disease Maritza Currie M.D. [address] [place] [phone] (Wo rk) documented as of this encounter Visit Diagnoses Not on filedocumented in this encounter Additional Health Concerns Assessment Noted Time PHQ-9 Depression Total Score: 7 06/21/2014 9:20 AM CDT documented as of this encounter
--- OUTSIDE RECORDS SUMMARY | 2021-12-10 15:07 | XMS_ITS | Encounter Summary ---
:1945 Author Organization [facility] Address [address] [place] [address] Care Team Providers Name Role Phone Unavailable Primary Care Provider Unavailable Encounter Details Date Type Department Care Team Description 06/21/[address] [facility] FAMILY [place] Nicki Anthony, MAL, C.N.P., D. N.P. [address] [place] [address] (Wo rk) Social History Tobacco [...] documented as of this encounter H&P Notes Dianne London R.N. - 06/21/2014 8:50 AM CDT [id number] Marcial is a very pleasant 69-year-old female [...] They live in their own home in [place]. She is retired. 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 They do [...] these, asking her 2 sons who are oversize load pilot escort, to facilitate this for her. HEALTHCARE PROVIDERS AND LIST OF SUPPLIERS Her primary care provider, she is establishing care with Dr. Gail Zazueta. This is comingup within the next month. Her eye doctor is Dr. Self at [place]. She is interested in seeing an inspector poising this next time so I have encouraged her to schedule this appointment at [facility] with Dr. Novoa or Dr. Serrano. PRESCRIPTION REFILLS Through [facility] in [place] or the [facility] EDUCATION COUNSELING AND RECOMMENDATIONS 1. Today Marcial was given a handout from the [employer] with a list of resources available to her as well as a web site and phone number for contacting. 2. She was given a handout from [facility] on care of her feet specifically for diabetic patients. 3. The Power of Prevention educational booklet from [facility]. Page 40 of this booklet was completed [...] her diabetic education refresher done at the [facility] as this is no longer done in [place]. 3. She describes to me some visual [...] VILLAR MD On: 06/28/2014 07:38 AM Source: [facility] MHSDOLBEYNONRADSYS Document Id: [id number] documented in this encounter Procedure Notes Dianne London R.N. - 06/21/2014 9:29 AM CDT Vision Testing Vision Testing Entered On: 06/21/2014 9:37 CDT Performed On: 06/21/2014 9:29 CDT by DIANNE LONDON RN Vision Testing Corrective Lenses : Glasses Eye, Right with Correction : 20/40 Eye, Left w/Correction : 20/25 Eyes, Both with Correction : 20/20 DIANNE LONDON RN - 06/21/2014 9:29 CDT Source: [employer] Document Id: [id number] CDT!6 documented in this encounter Miscellaneous Notes Misc[place]lliot - Dianne London R.N. - 06/21/2014 10:28 [...] LONDON RN - 06/21/2014 10:28 CDT Source: [employer] Document Id: [id number] CDT!8 Miscellaneous - Dianne London R.N. - 06/21/2014 9:20 AM CDT PHQ-9 PHQ-9 [...] LONDON RN - 06/21/2014 9:20 CDT Source: [employer] Document Id: [id number] CDT!13 Dianne Ireland R.NJairo - 06/21/2014 9:17 AM CDT Obstructive Sleep [...] LONDON RN - 06/21/2014 9:17 CDT Source: [employer] Document Id: [id number] CDT!10 Dianne Ireland R.N. - 06/21/2014 9:08 [...] None Behavioral Health Screen/Safety Assmt : No Episcopal Preference : DIANNE Pace RN - 06/21/2014 9:08 CDT Advance Directive Advanced Directives : No Advance Directive Additional Information : No DIANNE LONDON RN - 06/21/2014 9:08 CDT Educ Needs Learning Style Preference Adult Grid Patient : Verbal explanation Family : None DIANNE LONDON RN - 06/21/2014 9:08 CDT Source: [facility] [employer] Document Id: [id number] CDT!39 Miscellaneous - Dianne London R.N. - 06/21/2014 8:52 AM CDT Adult Bisque Brusher Intake/History Adult Bisque Brusher Intake/History Entered On: 06/21/2014 9:08 CDT Performed [...] Information Given By : Patient Languages : Estonian Is Patient Female and 13-50 no hysterectomy [...] LONDON RN - 06/21/2014 8:52 CDT Source: [facility] POWERCHART Document Id: [id number] CDT!41 documented in this encounter Plan of Treatment Upcoming Encounters Date Type Specialty Care Team Description 12/26/2021 Office Visit Cardiovascular Disease Maritza Currie M.D. [address] [place] [phone] (Wo rk) 01/16/2022 Appointment Radiology Vignesh Currie M.D. [address] [place] [phone] (Wo rk) 01/16/2022 Appointment Cardiovascular Disease Maritza Currie M.D. [address] [place] [phone] (Wo rk) 01/16/2022 Appointment Radiology Vignesh Currie M.D. [address] [place] [address] [phone] (Wo rk) 01/16/2022 Appointment Cardiovascular Disease Maritza Currie M.D. [address] [place] [phone] (Wo rk) documented as of this encounter Visit Diagnoses Not on filedocumented in this encounter Additional Health Concerns Assessment Noted Time PHQ-9 Depression Total Score: 7 06/21/2014 9:20 AM CDT documented as of this encounter
--- OUTSIDE RECORDS SUMMARY | 2021-12-10 15:07 | XMS_ITS | Encounter Summary ---
:1945 Author Organization [facility] Address [address] [place] [address] Care Team Providers Name Role Phone Unavailable Primary Care Provider Unavailable Encounter Details Date Type Department Care Team Description 12/11/2014 Hospital Encounter HX [facility] FAMILY ME Olivia Vidales, INFORMATION MANAGEMENT SPECIALIST, C.N.P. [address] [place], [place] [address] (Wo rk) Social History [...] Vidales, R.N. - 12/11/2014 1:38 PM CDT [id number] CHIEF COMPLAINT/REASON FOR VISIT Painful eye. Sinus [...] N.Payal./gene Electronically Signed By: JOSE CARLOS VIDALES MRI ASSISTANT On: 12/13/2014 10:53 PM Modified by and Electronically Signed by: JOSE CARLOS VIDALES MRI ASSISTANT On: 12/13/2014 10:53 PM Source: [facility] MHSDOLBEYNONRADSYS Document Id: [id number] documented in this encounter Miscellaneous Notes Miscellaneous - Jose Carlos Vidales R.N. - 12/11/2014 2:38 PM CDT Ambulatory Patient Summary [address] [id number] Visit Information Name: ARCHIE BAZAN [facility] Number: [id number] Current Date: 12/11/2014 14:38:49 Physicians [...] hours x 7 day(s) New Routed to [address] [address] *potassium acetate (potassium acetate) 1tab, Oral, once [...] Appointments Date Time Location Provider 01/04/2015 11:15 [facility] Echo [facility] Room 1 Attention: Contact your local Clinic [...] if you dont have one. Go to [email or web address] and click on Create Your Account. Then, follow the directions to complete the online form. Youll be asked for your [facility] number which you can find at the top of this document. Your Goals/Additional instructions: Source: [facility] POWERCHART Document Id: [id number] Miscellaneous - Jose Carlos Vidales R.N. - 12/11/2014 2:38 PM CDT Ambulatory Discharge Medication List [address] [id number] Visit Information Name: ARCHIE BAZAN [facility] Number: [id number] Visit Date: 12/11/2014 14:38:46 Attending Provider: JOSE CARLOS VIDALES MRI ASSISTANT Primary Care Provider: GAIL VILLAR MD ARCHIE [...] hours x 7 day(s) New Routed to [address] [address] *potassium acetate (potassium acetate) 1tab, Oral, once [...] emergency. Electronically Signed By: JOSE CARLOS VIDALES MRI ASSISTANT Signed On:11-DEC-2014 14:38:35 Additional Information: Source: [facility] POWERCHART Document Id: [id number] Miscellaneous - Mel Batista L.P.N. 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 [address] [place] [phone] (Wo rk) 01/16/2022 Appointment Radiology Vignesh Currie M.D. [address] [place] [address] [phone] (Wo rk) 01/16/2022 Appointment Cardiovascular Disease Maritza Currie M.D. [address] [place] [address] [phone] (Wo rk) 01/16/2022 Appointment Radiology Vignesh Currie M.D. [address] [place] [address] [phone] (Wo rk) 01/16/2022 Appointment Cardiovascular Disease Maritza Currie M.D. [address] [place] [address] [phone] (Wo rk) documented as of this encounter Visit Diagnoses Not on filedocumented in this encounter Additional Health Concerns Assessment Noted Time PHQ-9 Depression Total Score: 7 06/21/2014 9:20 AM CDT documented as of this encounter
--- OUTSIDE RECORDS SUMMARY | 2021-12-10 15:07 | XMS_ITS | Encounter Summary ---
:1945 Author Organization [facility] Address [address] [place] [address] Care Team Providers Name Role Phone Unavailable Primary Care Provider Unavailable Encounter Details Date Type Department Care Team Description 03/02/[address] [facility] ASSEMBLED WOOD PRODUCTS REPAIRER Gail Garrison M.D. [address] [place] [phone] (Wo rk) Social History Tobacco Use [...] 158 cm (5' 2.21) 03/02/2015 8:46 AM COAT TAILOR Body Mass Index - - documented in [...] as of this encounter Progress Notes Rebecca Gregorio RDN, LD - 03/02/2015 9:[address] met with patient in clinic today regarding cardiac diet and DM diet. Patient in cardiac rehab and thus this is part of her program. Patient with stint placed [id number] to 70% blockage. Patient notedshe is feeling [...] contact information was provided. Darcy Gregorio MBA, RD, KAREN Electronically Signed By: REBECCA GREGORIO RDN, LD On: 03/02/2015 10:05 AM Source: [facility] POWERCHART Document Id: [id number] TAILOR documented in this encounter Plan of Treatment Upcoming Encounters Date Type Specialty Care Team Description 12/26/2021 Office Visit Cardiovascular Disease Maritza Currie M.D. [address] [place] [phone] (Wo rk) 01/16/2022 Appointment Radiology Vignesh Currie M.D. [address] [place] [address] 55 [phone] (Wo rk) 01/16/2022 Appointment Cardiovascular Disease Maritza Currie M.D. [address] [place] [address] [phone] (Wo rk) 01/16/2022 Appointment Radiology Vignesh Currie M.D. [address] [place] [address] [phone] (Wo rk) 01/16/2022 Appointment Cardiovascular Disease Maritza Currie M.D. [address] [place] [address] [phone] (Jean rk) documented as of this encounter Visit Diagnoses Not on filedocumented in this encounter Additional Health Concerns Assessment Noted Time PHQ-9 Depression Total Score: 7 06/21/2014 9:20 AM CDT documented as of this encounter
--- OUTSIDE RECORDS SUMMARY | 2021-12-10 15:07 | XMS_ITS | Encounter Summary ---
:1945 Author Organization [facility] Address [address] [place] [address] Care Team Providers Name Role Phone Unavailable Primary Care Provider Unavailable Encounter Details Date Type Department Care Team Description 02/22/2015 Hospital En[facility] [address] [place] [phone] (Wo rk) Social History Tobacco Use [...] Comments Blood Pressure 122/58 02/22/2015 9:24 AM PLASTIC PRINTER Pulse 65 02/22/2015 9:24 AM PLASTIC PRINTER Temperature - - Respiratory Rate 16 02/22/2015 9:24 AM PLASTIC PRINTER Oxygen Saturation - - Inhaled Oxygen Concentration - - Weight 86.4 kg (190 lb 7.6 oz) 02/22/2015 9:24 AM PLASTIC PRINTER Height 158 cm (5' 2.21) 02/22/2015 9:24 AM PLASTIC PRINTER Body Mass Index 34.61 02/22/2015 9:24 AM PLASTIC PRINTER documented in this encounter Medications at Time [...] encounter Progress Notes Ne Cortez M.D. - 02/22/2015 1:04 PM CST Clinic Full Note Document Contains Addenda Addendum by NE VILLAR MD on 25 February 2015 13:08:47 PLASTIC PRINTER Patient also reports that her rosacea has been worse recently. Face has increased erythema and somepapules over the medial cheeks and chin. Referral placed for dermatology to further address. Modified by and Electronically Signed by: NE VILLAR MD On: 02/25/2015 01:09 PM CHIEF COMPLAINT/REASON FOR VISIT Follow up stent placement. HISTORY OF PRESENT ILLNESS Marcial presents today for followup on recent stent [...] Anxiety disorder NOS Coronary Artery Disease (CAD) [place] Hyperlipidemia/Dyslipidemia Hypothyroidism NOS NIDDM [non-insulin dependent [...] edema. IMPRESSION/REPORT/PLAN 1. Coronary Artery Disease (CAD) [place] Patient seems to be doing better [...] Ordered: OV Est Pt Level 4 - 08920 - 25 min 2. NIDDM [non-insulin dependent diabetes mellitus] Patient reports that her blood sugars have been good. She takes the glipizide in the morning and the metformin in the evening. She was taking the glipizide first but I advised her to take the levothyroxine first followed by the glipizide. A1c is due in May. Ordered: OV Est Pt Level 4 - 85241 - 25 min 28 minutes were spent with the patient today with over half of the time counseling patient and answering her questions. Electronically Signed By: NE VILLAR MD On: 02/25/2015 01:08 PM Source: [facility] POWERCHART Document Id: [id number] TIC PRINTER documented in this encounter Miscellaneous Notes Miscellaneous - Ne Cortez M.D. - 02/22/2015 10:16 AM PLASTIC PRINTER Ambulatory Patient Summary [address] [id number] Visit Information Name: MARCIAL BAAZN [facility] Number: [id number] Current Date: 02/22/2015 10:16:38 Physicians Attending Provider: NE VILLAR MD Primary Care Provider: NE VILLAR MD ELIDATSEVEN JOSE MIGUELPATRICK PAU has been given the following [...] Electronically Signed By: NE VILLAR MD Signed On:22-FEB-2015 10:16:23 Your Allergies [...] Stress Test Active Coronary Artery Disease (CAD) [place] Active Your Upcoming Appointments Date Time Location Provider 02/23/2015 11:00 [facility] Rehab Srvs [facility] Cardio/Pulm Therapist 03/02/2015 08:45 [facility] Natural Gas Technician Rebecca [address] RD Attention: Contact your local [...] if you dont have one. Go to [email or web address] and click on Create Your Account. Then, follow the directions to complete the online form. Youll be asked for your [facility] number which you can find at the top of this document. Your Goals/Additional instructions: Source: [facility] POWERCHART Document Id: [id number] TIC PRINTER Miscellaneous - Ne Cortez M.D. - 02/22/2015 10:16 AM PLASTIC PRINTER Ambulatory Discharge Medication List [place] [facility] [address] [place], [place] [id number] Visit Information Name: MARCIAL BAZAN [facility] Number: [id number] Visit Date: 02/22/2015 10:16:36 Attending Provider: NE VILLAR MD Primary Care [...] Electronically Signed By: NE VILLAR MD Signed On:22-FEB-2015 10:16:23 Additional Information: Source: [facility] POWERCHART Document Id: [id number] TIC PRINTER Miscellaneous - Jie Thomason, L.P.N. - 02/22/2015 9:24 AM CST Adult Director Of Operations Intake/History Adult Director Of Operations Intake/History Entered On: 02/22/2015 9:26 PLASTIC PRINTER Performed On: 02/22/2015 9:24 PLASTIC PRINTER by JIE THOMASON LPN Intake Chief Complaint [...] kg/m2 JIE THOMASON LPN - 02/22/2015 9:24 PLASTIC PRINTER General Info Information Given By : Patient Preferred Communication Mode : Verbal Languages : Welsh Is Patient Female and 13-50 no hysterectomy : No JIE THOMASON LPN - 02/22/2015 9:24 PLASTIC PRINTER Subjective Pain Symptoms : No JIE THOMASON LPN - 02/22/2015 9:24 PLASTIC PRINTER Dependent Habits Exposure to Tobacco Smoke : Care provider denies smoking in home, Other: never Smoking Status : Never smoker Tobacco 2A : No Tobacco Use/Currently Using : No Tobacco Use/Last 30 Days : No Tobacco Use/Last 12 months : No Alcohol Use : No JIE THOMASON LPN - 02/22/2015 9:24 PLASTIC PRINTER Caffeine Use Grid Caffeine Use : Past Type : Coffee, Soft drinks Frequency : Occasionally Amount : 1 cup per week JIE THOMASON LPN - 02/22/2015 9:24 PLASTIC PRINTER Recreational Drug Use Grid Drug Use : None JIE THOMASON LPN - 02/22/2015 9:24 PLASTIC PRINTER Source: [facility] DynadecCHART Document Id: [id number] PLASTIC PRINTER!43 TIC PRINTER documented in this encounter Plan of Treatment Upcoming Encounters Date Type Specialty Care Team Description 12/26/2021 Office Visit Cardiovascular Disease Maritza Currie M.D. [address] [place] [phone] (Wo rk) 01/16/2022 Appointment Radiology Vignesh Currie M.D. [address] [place] [phone] (Wo rk) 01/16/2022 Appointment Cardiovascular Disease Maritza Currie M.D. [address] [place] [phone] (Wo rk) 01/16/2022 Appointment Radiology Vignesh Currie M.D. [address] [place] [address] [phone] (Wo rk) 01/16/2022 Appointment Cardiovascular Disease Maritza Currie M.D. [address] [place] [address] [phone] (Wo rk) documented as of this encounter Visit Diagnoses Not on filedocumented in this encounter Additional Health Concerns Assessment Noted Time PHQ-9 Depression Total Score: 7 06/21/2014 9:20 AM CDT documented as of this encounter
--- OUTSIDE RECORDS SUMMARY | 2021-12-10 15:07 | XMS_ITS | Encounter Summary ---
:1945 Author Organization [facility] Address [address] [place] [address] Care Team Providers Name Role Phone Unavailable Primary Care Provider Unavailable Encounter Details Date Type Department Care Team Description 03/13/2014 Hospital Encounter HX [facility] Nicki Holt, MAL, C.N.P., D.N.P. [address] [place], [place] [phone] (Wo rk) Social History [...] 158 cm (5' 2.21) 03/13/2014 8:22 AM RELATIONSHIP MANAGER Body Mass Index - - documented in this encounter Medications at Time of Discharge Medication Sig Dispensed Refills Start Date End Date ASPIRIN ORAL Take 81 mg by mouth daily. Take 0 11/13/2021 with food for heart health. documented as of this encounter Miscellaneous Notes Miscellaneous - Conversion, Historical Provider Ser - 03/13/2014 11:59 PM RELATIONSHIP MANAGER Coding Summary-Paper Based CODING DATE: 03/16/2014 FINAL [facility] STATUS: * Discharged to Home [...] SIMON Date Saved: 03/16/2014 02:39 pm [facility] Document Id: [id number] Miscellaneous - Nicki Holt, Maritza.N.P., C.N.P. - 03/13/2014 10:31 AM RELATIONSHIP MANAGER Normal Results Letter 13 March 2014 ARCHIE BAZAN [address] [place] [id number] Dear ARCHIE BAZAN, Better, but we can [...] 8.3 12/12/2013 - <=5.6 Sincerely, NICKI HOLT [address] [address] Electronic Signature Electronically Signed By: NICKI HOLT DNP, [employer] IN[employer]CTOR On: 13 March 2014 This document has images extracted. Source: [employer] Document Id: [id number] documented in this encounter Plan of Treatment Upcoming Encounters Date Type Specialty Care Team Description 12/26/2021 Office Visit Cardiovascular Disease Maritza Currie M.D. [address] [place] [phone] (Wo rk) 01/16/2022 Appointment Radiology Vignesh Currie M.D. [address] [place], [place] [phone] (Wo rk) 01/16/2022 Appointment Cardiovascular Disease Maritza Currie M.D. [address] [place], [place] [phone] (Wo rk) 01/16/2022 Appointment Radiology Vignesh Currie M.D. [address] [place], [place] [phone] (Wo rk) 01/16/2022 Appointment Cardiovascular Disease Maritza Currie M.D. [address] [place] [phone] (Wo rk) documented as of this encounter Procedures Procedure Name Priority Date/Time Associated Diagnosis Comme nts HEMOGLOBIN A1C, B Routine 03/13/2014 9:03 AM Resu lts for this RELATIONSHIP MANAGER procedure are i n the results section. documented in this encounter Results (ABNORMAL) Hemoglobin A1c (03/13/2014 9:03 AM RELATIONSHIP MANAGER) P athologist Signature Hemoglobin A1c, 7.6 (H) <=5.6 A1C POWERCHART B Specimen (Source) Anatomical Collection Method Collection Time Re ceived Time Location / / Volume Laterality Blood 03/13/2014 9:03 AM RELATIONSHIP MANAGER Nicki Holt APRN, C.N.P., D.N.P. LAB BLOOD ADD- ON Performing Organization Address City/State/ZIP Code Phon e Number POWERCHART documented in this encounter Visit Diagnoses Not on filedocumented in this encounter Additional Health Concerns Assessment Noted Time PHQ-9 Depression Total Score: 1 06/01/2013 1:42 PM CDT documented as of this encounter
--- OUTSIDE RECORDS SUMMARY | 2021-12-10 15:08 | XMS_ITS | Encounter Summary ---
:1945 Author Organization [facility] Address [address] [place] [address] Care Team Providers Name Role Phone Unavailable Primary Care Provider Unavailable Encounter Details Date Type Department Care Team Description 12/16/2012 Hospital Encounter HX [facility] Nicki Anthony, MAL, C.N.P., D. N.P. [address] [place] [phone] (Wo rk) Social History Tobacco [...] mouth daily. Take 0 11/13/2021 with food VIPAAR. documented as of this encounter Progress Notes Conversion, Historical Provider Ser - 12/16/2012 8:55 AM CDT [id number] HEALTH & WELLNESS COACHING Patient was seen at [facility] in [place] on 12/16/2012 for a follow-up wellnesscoaching visit [...] weeks moving forward towards her goals. Annie Jeter cc: Nicki Anthony D.N.P./NereidaN.Payal Electronically Signed By: ANNIE PÉREZ On: 12/17/2012 10:19 AM Source: [facility] MHSDOLBEYNONRADSYS Document Id: [id number] documented in this encounter Plan of Treatment Upcoming Encounters Date Type Specialty Care Team Description 12/26/2021 Office Visit Cardiovascular Disease Maritza Currie M.D. [address] [place], [place] [phone] ([place]) 01/16/2022 Appointment Radiology Vignesh Currie M.D. [address] [place] [phone] ([place]) 01/16/2022 Appointment Cardiovascular Disease Maritza Currie M.D. [address] [place] [phone] (Wo rk) 01/16/2022 Appointment Radiology Vignesh Currie M.D. [address] [place], [place] [phone] (Wo rk) 01/16/2022 Appointment Cardiovascular Disease Maritza Currie M.D. [address] [place], [place] [phone] (Wo rk) documented as of this encounter Visit Diagnoses Not on filedocumented in this encounter
--- OUTSIDE RECORDS SUMMARY | 2021-12-10 15:08 | XMS_ITS | Encounter Summary ---
:[address] [facility] Address [address] [place] [address] Care Team Providers Name Role Phone Unavailable Primary Care Provider Unavailable Encounter Details Date Type Department Care Team Description 08/24/2012 - Hospital Encounter HX [facility] Holt, Evi reanna 02/21/2013 AURELIANO Andesron, MAL, C.N.P., D.N.P. [address] [place] [address] Social History Tobacco Use Types [...] Lovell, P.T. - 09/02/2012 12:00 AM CDT [id number] IMPRESSION/REPORT/PLAN This patient came in today with [...] if she wants to follow-up with an floral specialist. Her strength remains quite good overall. [...] shoulder issues. She will possibly see an floral specialist. PLAN: At this time, the patient will be discharged from physical therapy. We may follow-up with further therapy at a later time should she choose to do so. We may also have follow-up after she sees an floral specialist. Otilio Montez/kena Electronically Signed By: CHILANGO LOVELL On: 09/06/2012 07:02 AM Source: [facility] MHSDOLBEYNONRADSYS Document Id: [id number] documented in this encounter Medications at Time of Discharge Medication Sig Dispensed Refills Start Date End Date ASPIRIN ORAL Take 81 mg by mouth daily. Take 0 11/13/2021 with [employer]. documented as of this encounter Progress Notes Chilango Lovell P.T. - 08/27/2012 12:00 AM CDT [id number] IMPRESSION/REPORT/PLAN Marcial comes in today stating that [...] will be to follow-up next week. Otilio Montez/[facility] DOCID: [110] Electronically Signed By: CHILANGO LOVELL On: 08/31/2012 02:18 PM Source: [facility] MHSDOLBEYNONRADSYS Document Id: [id number] documented in this encounter Consult Notes Chilango Lovell P.T. - 08/24/2012 12:00 AM CDT [id number] CHIEF COMPLAINT/REASON FOR VISIT This patient comes [...] minutes. The patient did fill out the [employer] [facility] score. Based upon [...] to her. Otilio Montez/kena cc: Vickey Holt D.N.P./Stanislav.N.Payal Electronically Signed By: CHILANGO LOVELL On: 08/31/2012 02:32 PM Co-Signed By: VICKEY HOLT [facility] On: 09/06/2012 08:30 AM Source: [facility] MHSDOLBEYNONRADSYS Document Id: [id number] documented in this encounter Miscellaneous Notes Miscellaneous [...] CARDOZA LPN - 11/25/2012 12:36 CDT Source: [facility] POWERCHART Document Id: [id number] CDT!5 Miscellaneous - Conversion, Historical Provider Ser [...] not D/C or decrease. Please advise Source: [facility] POWERCHART Document Id: [id number] Miscellaneous - Petra Lopez L.PJairoN. - 10/11/2012 [...] reach per her request Thanks Petra Source: [facility] POWERCHART Document Id: [id number] Electronically signed by Conversion, [facility] Medical File Clerk [id number] at 07/16/2016 1:01 AM CDT Miscellaneous - [...] Dr. Velasco. Appointment set up with Dr. Velasco([facility]) in [place] 10/06/12 at 1350. Marcialn aware to bring [...] set patient up with Dr. Velasco in [facility]. Booked till 10/06/12. Will talk with patient next wk when she gets back from vacation. Source: [facility] POWERCHART Document Id: [id number] Electronically signed by [facility], [facility] Medical File Clerk [id number] at 07/16/2016 1:01 AM CDT documented in this encounter Plan of Treatment Upcoming Encounters Date Type Specialty Care Team Description 12/26/2021 Office Visit Cardiovascular Disease Maritza Currie M.D. [address] [place] [phone] (Wo rk) 01/16/2022 Appointment Radiology Vignesh Currie M.D. [address] [place] [phone] (Wo rk) 01/16/2022 Appointment Cardiovascular Disease Maritza Currie M.D. [address] [place] [address] [phone] (Wo rk) 01/16/2022 Appointment Radiology Vignesh Currie M.D. [address] [place] [address] [phone] (Wo rk) 01/16/2022 Appointment Cardiovascular Disease Maritza Currie M.D. [address] [place] [phone] (Wo rk) documented as of this encounter Visit Diagnoses Not on filedocumented in this encounter
--- OUTSIDE RECORDS SUMMARY | 2021-12-10 15:08 | XMS_ITS | Encounter Summary ---
:1945 Author Organization [facility] Address [address] [place] [address] Care Team Providers Name Role Phone Unavailable Primary Care Provider Unavailable Encounter Details Date Type Department Care Team Description 12/30/2012 Hospital Encounter [facility] Nicki Holt, MAL, C.N.P., D. N.P. [address] [place] [address] (Wo rk) Social History Tobacco [...] Comments Blood Pressure 130/68 12/30/2012 10:15 AM CATALYST SUPERVISOR Pulse 72 12/30/2012 10:15 AM CATALYST SUPERVISOR Temperature - - Respiratory Rate 16 12/30/2012 10:15 AM CATALYST SUPERVISOR Oxygen Saturation - - Inhaled Oxygen Concentration - - Weight 82.4 kg (181 lb 10.5 oz) 12/30/2012 10:15 AM CATALYST SUPERVISOR Height 162.3 cm (5' 3.9) 12/30/2012 10:15 AM CATALYST SUPERVISOR Body Mass Index 31.28 12/30/2012 10:15 AM CATALYST SUPERVISOR documented in this encounter Medications at Time of Discharge Medication Sig Dispensed Refills Start Date End Date ASPIRIN ORAL Take 81 mg by mouth daily. Take 0 11/13/2021 with food for heart health. documented as of this encounter Progress Notes Holt, Nicki L, D.N.P., C.N.P. - 12/30/2012 10:02 AM CST [id number] CHIEF COMPLAINT/REASON FOR VISIT Skin lesion underneath [...] patient. Patient was given information from the [employer] [facility] site regarding seborrheic keratosis in [...] DNP, FNP On: 12/31/2012 12:33 PM Source: [facility] MHSDOLBEYNONRADSYS Document Id: [id number] LYST SUPERVISOR documented in this encounter Miscellaneous Notes Miscellaneous - Nicki Holt D.N.P., C.N.P. - 12/30/2012 12:19 PM CATALYST SUPERVISOR Ambulatory Patient Summary [address] [id number] Visit Information Name: ARCHIE BAZAN [facility] Number: [id number] Current Date: 12/30/2012 12:19:37 Physicians [...] Date Time Location Reason Provider 01/03/2013 12:45 [facility] PT/OT RT ROTATOR CUFF Ziyad Childs 01/20/2013 09:30 [facility] Family Med f/u [facility] Health Test Developer Attention: Contact your local Clinic if further appointment detail needed. Your Goals/Additional instructions: Source: [facility] POWERCHART Document Id: [id number] LYST SUPERVISOR Miscellaneous - Nicki Holt D.N.P., C.N.P. - 12/30/2012 12:19 PM CATALYST SUPERVISOR Ambulatory Depart Summary [address] [address] Visit Information Name: ARCHIE BAZAN [facility] Number: [id number] Visit Date: 12/30/2012 12:19:36 Attending [...] your provider for clarification. Additional Information: Source: [facility] POWERCHART Document Id: [id number] LYST SUPERVISOR Miscellaneous - Vitaliy Darnell LJairoP.N. - 12/30/2012 10:15 AM CST Adult Farm Management Professor Intake/History Adult Farm Management Professor Intake/History Entered On: 12/30/2012 10:19 CATALYST SUPERVISOR Performed On: 12/30/2012 10:15 CATALYST SUPERVISOR by VITALIY DARNELL ANDROID PROGRAMMER Intake Chief Complaint : Spot under left [...] Mass Index : 31.28 kg/m2 VITALIY DARNELL [facility] - 12/30/2012 10:15 CATALYST SUPERVISOR General Info Information Given By : Patient Languages : Romanian VITALIY DARNELL [facility] 12/30/2012 10:15 CATALYST SUPERVISOR Subjective Pain Symptoms : No VITALIY DARNELL [facility] - 12/30/2012 10:15 CATALYST SUPERVISOR Dependent Habits Tobacco Use/Currently Using : No Tobacco Use/Last 12 months : No Tobacco Use/Advised to Quit : No Exposure to Tobacco Smoke : Care provider denies smoking in home Smoking Status : Never smoker VITALIY DARNELL [facility] - 12/30/2012 10:15 CATALYST SUPERVISOR Tobacco Use Grid Last Use : Never VITALIY DARNELL [facility] - 12/30/2012 10:15 CATALYST SUPERVISOR Alcohol Use : No VITALIY DARNELL [facility] - 12/30/2012 10:15 CATALYST SUPERVISOR Caffeine Use Grid Caffeine Use : Current Type : Tea Frequency : Occasionally VITALIY DARNELL [facility] - 12/30/2012 10:15 CATALYST SUPERVISOR Recreational Drug Use Grid Drug Use : None VITALIY DARNELL [facility] - 12/30/2012 10:15 CATALYST SUPERVISOR Source: [facility] POWERCHART Document Id: [id number] CATALYST SUPERVISOR!41 LYST SUPERVISOR documented in this encounter Plan of Treatment Upcoming Encounters Date Type Specialty Care Team Description 12/26/2021 Office Visit Cardiovascular Disease Maritza Currie M.D. [address] [place] [phone] (Wo rk) 01/16/2022 Appointment Radiology Vignesh Currie M.D. [address] [place] [address] [phone] (Wo rk) 01/16/2022 Appointment Cardiovascular Disease Maritza Currie M.D. [address] [place] [address] [phone] (Wo rk) 01/16/2022 Appointment Radiology Vignesh Currie M.D. [address] [place] [address] [phone] (Wo rk) 01/16/2022 Appointment Cardiovascular Disease Maritza Currie M.D. [address] [place] [address] [phone] (Wo rk) documented as of this encounter Visit Diagnoses Not on filedocumented in this encounter
--- OUTSIDE RECORDS SUMMARY | 2021-12-10 15:08 | XMS_ITS | Encounter Summary ---
:1945 Author Organization [facility] Address [address] [place] [address] Care Team Providers Name Role Phone Unavailable Primary Care Provider Unavailable Encounter Details Date Type Department Care Team Description 10/21/2012 Hospital Encounter HX [facility] Nicki Anthony, MAL, C.N.P., D. N.P. [address] [place] [address] (Wo rk) Social History Tobacco [...] mouth daily. Take 0 11/13/2021 with food [employer] [facility]. documented as of this encounter Progress Notes Conversion, Historical Provider Ser - 10/21/2012 9:05 AM CDT [id number] HEALTH & WELLNESS COACHING VISIT Referring Physician Nicki Anthony, Maritza.N.P./F.N.P Patient was seen in [facility] for follow-up wellness coaching visit around [...] for our continued 30-minute appointment time. Annie Pérez/rodrick Electronically Signed By: ANNIE PÉREZ On: 10/28/2012 05:03 PM Source: [facility] MHSDOLBEYNONRADSYS Document Id: [id number] documented in this encounter Plan of Treatment Upcoming Encounters Date Type Specialty Care Team Description 12/26/2021 Office Visit Cardiovascular Disease Maritza Currie M.D. [address] [place] [phone] (Wo rk) 01/16/2022 Appointment Radiology Vignesh Currie M.D. [address] [place] [address] [phone] (Wo rk) 01/16/2022 Appointment Cardiovascular Disease Maritza Currie M.D. [address] [place] [address] [phone] (Wo rk) 01/16/2022 Appointment Radiology Vignesh Currie M.D. [address] [place] [address] [phone] (Wo rk) 01/16/2022 Appointment Cardiovascular Disease Maritza Currie M.D. [address] [place] [address] [phone] (Wo rk) documented as of this encounter Visit Diagnoses Not on filedocumented in this encounter
--- OUTSIDE RECORDS SUMMARY | 2021-12-10 15:08 | XMS_ITS | Encounter Summary ---
:[address] [facility] Address [address] [place] [address] Care Team Providers Name Role Phone Unavailable Primary Care Provider Unavailable Encounter Details Date Type Department Care Team Description 04/07/2013 Hospital Encounter HX [facility] Nicki Anthony, MAL C.N.P., D.N.P. [address] [place], [place] [phone] (Wo rk) Social History [...] by mouth daily. Take 0 11/13/2021 with [employer]. documented as of this encounter Miscellaneous Notes Miscellaneous - Nicki Anthony, Maritza.N.P., C.N.P. - 04/07/2013 11:17 AM WRAPPER LAYER Results Notification Document Contains Addenda Addendum by VITALIY VILLEDA LPN on 07 April 2013 12:31:54 WRAPPER [employer]AYER Spoke with Malik regarding below results. Addendum by VITALIY VILLEDA LPN on 07 April 2013 11:26:14 WRAPPER [employer]AYER Left message to return call. From: YANETGABRIELLASOUMYA Anderson DNP, DERMATOLOGIST Sent: 04/07/2013 11:17:42 WRAPPER LAYER ! Show up: 04/07/2013 11:17:42 WRAPPER [employer]AYER Subject: Results Notification Actions: Notify patient of [...] TSH 2.54 mcIU/mL (0.30 - 5.00) Source: [facility] POWERCHART Document Id: [id number] Electronically signed by Conversion, [facility] Software Sales Consultant [id number] at 07/14/2016 11:11 PM CDT documented in this encounter Plan of Treatment Upcoming Encounters Date Type Specialty Care Team Description 12/26/2021 Office Visit Cardiovascular Disease Maritza Currie M.D. [address] [place], [place] [phone] (Wo rk) 01/16/2022 Appointment Radiology Vignesh Currie M.D. [address] [place], [place] [phone] (Wo rk) 01/16/2022 Appointment Cardiovascular Disease Maritza Currie M.D. [address] [place] [phone] (Wo rk) 01/16/2022 Appointment Radiology Vignesh Currie M.D. [address] [place] [phone] (Wo rk) 01/16/2022 Appointment Cardiovascular Disease Maritza Currie M.D. [address] [place] [phone] (Wo rk) documented as of this encounter Procedures Procedure Name Priority Date/Time Associated Comments Diagnosis URINALYSIS, ROUTINE Routine 04/07/2013 10:11 Resu lts for this AM WRAPPER [employer]AYER procedure are i n the results section. URINE MICROSCOPIC Routine 04/07/2013 10:11 Result s for this AM [employer]ER procedure are i n the results section. THYROID-STIMULATING Routine 04/07/2013 9:40 AM Re sults for this HORMONE-SENSITIVE WRAPPER LAYER procedure are in (S-TSH) the results section. documented in this encounter Results Urine Microscopic (04/07/2013 10:11 AM WRAPPER LAYER) [facility] Method Time Signature HXUr WBC 1-3 POWERCHART Red Blood Cell Negative 0 - 2 POWERCHART Clump, Urine HXUr Epithelial Occasional POWERCHART Comment: occasional squamous epis seen Specimen Anatomical Collection Method Collection Time Receive d Time (Source) Location / / Volume Laterality Urine 04/07/2013 10:11 04/07/2013 AM WRAPPER LAYER 10:11 AM WRAPPER LAYER Nicki Anthony APRN, C.N.P., D.N.P. LAB URINE DESI MONGE Performing Organization Address City/State/ZIP Code Phon e Number POWERCHART Urinalysis, Routine (04/07/2013 10:11 AM WRAPPER LAYER) [facility] Method Time Signature HXUr Color Yellow Yellow POWERCHART Appearance Clear Clear POWERCHART Glucose Trace Negative POWERCHART HXBILIRUBIN Negative Negative POWERCHART Ketones, QL(U) Negative Negative POWERCHART Specific 1.015 1.000 - POWERCHART [place], POCT, U 1.030 pH, POCT, Urine 5.5 5.0 - 8.0 POWERCHART Protein, Ur, Dip Negative Negative POWERCHART Urobilinogen 0.2 POWERCHART HXNITRITE Negative Negative POWERCHART HXBLOOD Trace-lysed POWERCHART Leukocyte 1+ Negative POWERCHART Esterase Source Clean Void POWERCHART Urine Specimen (Source) Anatomical Collection Method Collection Time Re ceived Time Location / / Volume Laterality Urine 04/07/2013 10:11 AM WRAPPER LAYER Nicki Anthony APRN, C.N.P., D.N.P. LAB URINE ORDE RABLES Performing Organization Address City/State/ZIP Code Phon e Number POWERCHART Thyroid-Stimulating Hormone-Sensitive (s-TSH) (04/07/2013 9:40 AM WRAPPER LAYER) P athologist Signature TSH 2.54 0.30 - 5.00 POWERCHART (Thyrotropin) MCIUML Specimen (Source) Anatomical Collection Method Collection Time Re ceived Time Location / / Volume Laterality Blood 04/07/2013 9:40 AM WRAPPER LAYER Nicki Anthony APRN, C.N.P., D.N.P. LAB BLOOD ADD- ON Performing Organization Address City/State/ZIP Code Phon e Number POWERCHART documented in this encounter Visit Diagnoses Not on filedocumented in this encounter
--- OUTSIDE RECORDS SUMMARY | 2021-12-10 15:08 | XMS_ITS | Encounter Summary ---
:1945 Author Organization [facility] Address [address] [place] [address] Care Team Providers Name Role Phone Unavailable Primary Care Provider Unavailable Encounter Details Date Type Department Care Team Description 06/01/2013 Hospital Encounter HX [facility] Nicki Holt, MAL, C.N.P., D. N.P. [address] [place] [address] (Wo rk) Social History Tobacco [...] encounter H&P Notes Dianne London R.N. - 06/01/2013 12:58 PM CDT [id number] Marcial is a very pleasant, 67-year-old female [...] HISTORY Marcial is . She lives in [facility]. She is retired. 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 They do have a pet. He [...] drive without restrictions and she wears her [id number]% of the time. FALL RISK: She denies [...] PROVIDERS AND LIST OF SUPPLIERS: Nicki Holt, [facility] in [place] is her primary care provider, [facility] for her dental and pharmaceutical needs. Anthony in [place] is her eye doctor and [facility] chiropractor for chiropractic needs. EDUCATION, COUNSELING AND RECOMMENDATIONS: Marcial was given the patient education from [facility] entitled Eat Well Use a Plate Method [...] Scheduled a diabetic refresher with the clinical document improvement educator. 2. Recommendation for colonoscopy, colon cancer [...] 12:09 PM Co-Signed By: NICKI HOLT DNP, NURSING EDUCATION SPECIALIST On: 06/10/2013 07:39 AM Source: [facility] MHSDOLBEYNONRADSYS Document Id: [id number] documented in this encounter Procedure Notes Dianne London R.N. - 06/01/2013 1:16 PM CDT Vision Testing Vision Testing Entered On: 06/01/2013 13:19 CDT Performed On: 06/01/2013 13:16 CDT by DIANNE LONDON RN Vision Testing Corrective Lenses : Glasses Eye, Right with Correction : 20/40 Eye, Left w/Correction : 20/25 Eyes, Both with Correction : 20/30 DIANNE LONDON RN - 06/01/2013 13:16 CDT Source: [facility] P[employer] Document Id: [id number] CDT!6 documented in this encounter Miscellaneous Notes [...] Features : 0 Neck Circumference (cm) : 4243 Total Sleep Apnea Clinical Score Calc : 5 DIANNE LONDON RN - 06/01/2013 13:45 CDT Source: [employer] Document Id: [id number] CDT!10 Miscellaneous - Dianne London RSusan - 06/01/2013 1:42 PM CDT PHQ-9 PHQ-9 [...] LONDON RN - 06/01/2013 13:42 CDT Source: [facility] POWERCHART Document Id: [id number] CDT!13 Miscellaneous - Dianne London R.N. - [...] 13:33 CDT Alcohol Use : No DIANNE LODNON RN - 06/01/2013 13:33 CDT Caffeine Use [...] LONDON RN - 06/01/2013 13:33 CDT Source: [facility] POWERCHART Document Id: [id number] CDT!33 Miscellaneous - Dianne London R.N. - 06/01/2013 1:20 PM CDT Adult Critical Care Physician Intake/History Adult Critical Care Physician Intake/History Entered On: 06/01/2013 13:33 CDT Performed On: 06/01/2013 13:20 CDT by DIANNE LONDON laborer road Chief Complaint : Medicare Initial Annual Wellness [...] Information Given By : Patient Languages : Namibian DIANNE LONDON RN - 06/01/2013 13:20 CDT [...] LONDON RN - 06/01/2013 13:20 CDT Source: [employer] Document Id: [id number] CDT!35 documented in this encounter Plan of Treatment Upcoming Encounters Date Type Specialty Care Team Description 12/26/2021 Office Visit Cardiovascular Disease Maritza Currie M.D. [address] [place] [phone] (Wo rk) 01/16/2022 Appointment Radiology Vignesh Currie M.D. [address] [place] [phone] (Wo rk) 01/16/2022 Appointment Cardiovascular Disease Maritza Currie M.D. [address] [place] [phone] (Wo rk) 01/16/2022 Appointment Radiology Vignesh Currie M.D. [address] [place] [phone] (Wo rk) 01/16/2022 Appointment Cardiovascular Disease Maritza Currie M.D. [address] [place] [phone] (Wo rk) documented as of this encounter Visit Diagnoses Not on filedocumented in this encounter Additional Health Concerns Assessment Noted Time PHQ-9 Depression Total Score: 1 06/01/2013 1:42 PM CDT documented as of this encounter
--- OUTSIDE RECORDS SUMMARY | 2021-12-10 15:08 | XMS_ITS | Encounter Summary ---
:1945 Author Organization [facility] Address [address] [place] [address] Care Team Providers Name Role Phone Unavailable Primary Care Provider Unavailable Encounter Details Date Type Department Care Team Description 10/21/2012 Hospital Encounter HX [facility] Nicki Holt, MAL, C.N.P., D.N.P. [address] [place], [place] [phone] (Wo rk) Social History [...] by mouth daily. Take 0 11/13/2021 with [employer]. documented as of this encounter Miscellaneous Notes Miscellaneous - Nicki Holt, Maritza.N.P., C.N.P. - 10/29/2012 9:13 AM CDT Results Notification Document Contains Addenda Addendum by PETRA RUSSELL LPN on 29 October 2012 15:36:24 CDT Patient called and updated she will follow new orders in medications and labs she reports that she has no concerns with bladder at this time From: NICKI HOLT DNP, OFFICE SUPPORT CLERK To: DIANA RYAN Justin EDUCATION TRAINER; Sent: 10/29/2012 09:13:44 CDT ! Show up: 10/29/2012 14:13:44 [facility] Subject: Results Notification Actions: Note [...] (H) 5.55 mcIU/mL (0.30 - 5.00) Source: [facility] POWERCHART Document Id: [id number] Electronically signed by Conversion, [facility] Locomotive Engineer Electric [id number] at 07/16/2016 6:07 PM CDT Miscellaneous - Nicki Holt, D.N.P., C.N.P. - 10/21/2012 9:58 AM CDT Normal Results Letter 21 October 2012 ARCHIE BAZAN [address] [place] [id number] Dear ARCHIE BAZAN, Result Name Current Result [...] 4.00 - 6.00 Sincerely, NICKI HOLT [address] [place] [address] Electronic Signature Electronically Signed By: NICKI HOLT DNP, FNP On: 21 October 2012 This document has images extracted. Source: [facility] POWERCHART Document Id: [id number] Electronically signed by Conversion, [facility] Locomotive Engineer Electric [id number] at 07/16/2016 6:07 PM CDT documented in this encounter Plan of Treatment Upcoming Encounters Date Type Specialty Care Team Description 12/26/2021 Office Visit Cardiovascular Disease Maritza Currie M.D. [address] [place] [phone] (Wo rk) 01/16/2022 Appointment Radiology Vignesh Currie M.D. [address] [place] [phone] (Wo rk) 01/16/2022 Appointment Cardiovascular Disease Maritza Currie M.D. [address] [place] [phone] (Wo rk) 01/16/2022 Appointment Radiology Vignesh Currie M.D. [address] [place] [phone] (Wo rk) 01/16/2022 Appointment Cardiovascular Disease Maritza Currie M.D. [address] [place] [phone] (Wo rk) documented as of [...] Culture, Aerobic, Urine (10/21/2012 9:12 AM CDT) [facility] gist Method Time Signature Bacterial POWERCHART Culture, Aerobic, Urine HXPre <10,000 cfu/mL POWERCHART Mixed ismael (multiple species present) Continuing incubation HXFinal >100,000 POWERCHART cfu/mL Mixed ismael (multiple species present) HXFinal No further POWERCHART work-up. Specimen (Source) Anatomical Collection Method Collection Time Re ceived Time Location / / Volume Laterality Micro Spec 10/21/2012 9:12 AM CDT Nicki Holt APRN, C.N.P., D.N.P. LAB MICROBIOLO GY - GENERAL ORDERABLES Performing Organization Address City/State/[facility] Code Phon e Number POWERCHART HXUR % DYSMORPHIC RBC (10/21/2012 9:12 AM CDT) athologist Signature Dysmorphic RBC <=25 <=25 POWERCHART Specimen Anatomical Collection Method Collection Time Receive d Time (Source) Location / / Volume Laterality Urine 10/21/2012 9:12 AM 3 9:12 CDT AM CDT Nicki Holt APRN, C.N.P., D.N.P. LAB HISTORICAL ORDERS Performing Organization Address City/State/[facility] Code Phon e Number POWERCHART [...] Holt APRN, C.N.P., D.N.P. LAB URINE ORDE RABCHRISTOPHER Performing Organization Address City/[facility] Code Phon e Number POWERCHART Urinalysis, Routine (10/21/2012 9:12 AM CDT) athologist Signature HXUr Color Yellow Yellow POWERCHART Appearance Clear Clear POWERCHART Glucose Negative Negative POWERCHART HXBILIRUBIN 1+ Negative POWERCHART Comment: neg per visual exam 10/21/2012 09:30:58 CDT [id number] Ketones, QL(U) Negative Negative POWERCHART Specific [place], POCT, U 1.025 1.000 - 1.030 POWERCHART pH, POCT, Urine 5.5 5.0 - 8.0 POWERCHART Protein, Ur, Dip Negative Negative POWERCHART Urobilinogen 0.2 POWERCHART HXNITRITE Negative Negative POWERCHART HXBLOOD Trace-intact Negative POWERCHART Leukocyte Esterase 2+ Negative POWERCHART Specimen (Source) Anatomical Collection Method Collection Time Re ceived Time Location / / Volume Laterality Urine 10/21/2012 9:12 AM CDT Nicki Holt APRN, C.N.P., D.N.P. LAB URINE ORDE RABLES Performing Organization Address City/[facility] Phon e Number POWERCHART (ABNORMAL) Hemoglobin A1c (10/21/2012 9:06 AM CDT) [facility] Signature Hemoglobin A1c, 6.46 (H) 4.00 - POWERCHART B 6.00 Specimen (Source) Anatomical Collection Method Collection Time Re ceived Time Location / / Volume Laterality Blood 10/21/2012 9:06 AM CDT Nicki Holt APRN, C.N.P., D.N.P. LAB BLOOD ADD- ON Performing Organization Address City/[facility] Phon e Number POWERCHART (ABNORMAL) Lipid Panel (10/21/2012 9:06 AM CDT) athologist Signature Cholesterol, 218 (H) 0 - [...] 9:06 AM CDT) Analysis Performed At Patho logist Time Signature TSH 5.55 (H) 0.30 - [...]
--- OUTSIDE RECORDS SUMMARY | 2021-12-10 15:08 | XMS_ITS | Encounter Summary ---
:1945 Author Organization [facility] Address [address] [place] [address] Care Team Providers Name Role Phone Unavailable Primary Care Provider Unavailable Encounter Details Date Type Department Care Team Description 11/04/2012 Hospital Encounter [facility] Nicki Anthony, MAL, C.N.P., D. N.P. [address] [place] [address] (Wo rk) Social History Tobacco [...] Provider Ser - 11/04/2012 8:47 AM CDT [id number] HEALTH & WELLNESS COACHING Referring Physician Nicki Anthony D.N.P./Davina Patient was seen in [facility] for follow-up wellness coaching visit around [...] ANNIE PÉREZ On: 11/09/2012 12:47 PM Source: [facility] MHSDOLBEYNONRADSYS Document Id: [id number] documented in this encounter Miscellaneous Notes Miscellaneous [...] CARDOZA LPN - 11/09/2012 17:06 CDT Source: [facility] POWERCHART Document Id: [id number] CDT!5 documented in this encounter Plan of Treatment Upcoming Encounters Date Type Specialty Care Team Description 12/26/2021 Office Visit Cardiovascular Disease Maritza Currie M.D. [address] [place] [phone] (Jean rk) 01/16/2022 Appointment Radiology Vignesh Currie M.D. [address] [place] [phone] (Jean rk) 01/16/2022 Appointment Cardiovascular Disease Maritza Currie M.D. [address] [place] [phone] (Jean rk) 01/16/2022 Appointment Radiology Vignesh Currie M.D. [address] [place] [phone] (Wo rk) 01/16/2022 Appointment Cardiovascular Disease Maritza Currie M.D. [address] [place] [phone] ([place]) documented as of this encounter Visit Diagnoses Not on filedocumented in this encounter
--- OUTSIDE RECORDS SUMMARY | 2021-12-10 15:08 | XMS_ITS | Encounter Summary ---
:1945 Author Organization [facility] Address [address] [place] [address] Care Team Providers Name Role Phone Unavailable Primary Care Provider Unavailable Encounter Details Date Type Department Care Team Description 09/30/2012 Hospital Encounter HX [facility] Nicki Anthony, MAL, C.N.P., D. N.P. [address] [place] [address] (Wo rk) Social History Tobacco [...] mouth daily. Take 0 11/13/2021 with food [employer]. documented as of this encounter Progress Notes Conversion, Historical Provider Ser - 09/30/2012 9:45 AM CDT [id number] HEALTH & WELLNESS COACHING VISIT CHIEF COMPLAINT/REASON [...] to have a play date with her [id number] in the next week and is looking [...] 3 weeks as she sees helpful. Annie Millan Electronically Signed By: ANNIE PÉREZ On: 10/12/2012 02:34 PM Source: [facility] MHSDOLBEYNONRADSYS Document Id: [id number] documented in this encounter Plan of Treatment Upcoming Encounters Date Type Specialty Care Team Description 12/26/2021 Office Visit Cardiovascular Disease Maritza Currie M.D. [address] [place], [place] [phone] (Jean [place]) 01/16/2022 Appointment Radiology Vignesh Currie M.D. [address] [place], [place] [phone] ([place]) 01/16/2022 Appointment Cardiovascular Disease Maritza Currie M.D. [address] [place], [place] [phone] (Wo rk) 01/16/2022 Appointment Radiology Vignesh Currie M.D. [address] [place] [phone] (Wo rk) 01/16/2022 Appointment Cardiovascular Disease Maritza Currie M.D. [address] [place] [phone] (Wo rk) documented as of this encounter Visit Diagnoses Not on filedocumented in this encounter
--- OUTSIDE RECORDS SUMMARY | 2021-12-10 15:08 | XMS_ITS | Encounter Summary ---
:1945 Author Organization [facility] Address [address] [place] [address] Care Team Providers Name Role Phone Unavailable Primary Care Provider Unavailable Encounter Details Date Type Department Care Team Description 01/20/2013 Hospital Encounter HX [facility] Nicki Anthony, MAL, C.N.P., D. N.P. [address] [place] [address] (Wo rk) Social History Tobacco [...] mouth daily. Take 0 11/13/2021 with food [employer]. documented as of this encounter Progress Notes Conversion, Historical Provider Ser - 01/20/2013 9:22 AM CST [id number] HEALTH AND WELLNESS COACHING The patient was seen at [facility] in [place] on 01/20/2013 for followup wellness coaching visit [...] cheese, fruit, or cottage cheese along with Syrian yogurts and nuts. FOLLOWUP PLAN We will [...] holiday seasonfor more accountability and guidance. Annie Pérez/[facility] Electronically Signed By: ANNIE PÉREZ On: 01/21/2013 03:58 PM [facility] Document Id: [id number] documented in this encounter Plan of Treatment Upcoming Encounters Date Type Specialty Care Team Description 12/26/2021 Office Visit Cardiovascular Disease Maritza Currie M.D. [address] [place] [phone] (Wo rk) 01/16/2022 Appointment Radiology Vignesh Currie M.D. [address] [place] [phone] (Wo rk) 01/16/2022 Appointment Cardiovascular Disease Maritza Currie M.D. [address] [place] [phone] (Wo rk) 01/16/2022 Appointment Radiology Vignesh Currie M.D. [address] [place] [phone] (Wo rk) 01/16/2022 Appointment Cardiovascular Disease Maritza Currie M.D. [address] [place] [phone] (Wo rk) documented as of this encounter Visit Diagnoses Not on filedocumented in this encounter
--- OUTSIDE RECORDS SUMMARY | 2021-12-10 15:08 | XMS_ITS | Encounter Summary ---
:1945 Author [address] [facility] Address [address] [place] [address] Care Team Providers Name Role Phone Unavailable Primary Care Provider Unavailable Encounter Details Date Type Department Care Team Description 10/14/2012 Hospital Encounter HX [facility] [place] Nicki Anthony, MAL, C.N.P., D. N.P. [address] [place] [address] (Wo rk) Social History Tobacco [...] mouth daily. Take 0 11/13/2021 with food [employer]. documented as of this encounter Progress Notes Conversion, Historical Provider Ser - 10/14/2012 9:50 AM CDT [id number] HEALTH & WELLNESS COACHING Patient was seen at [facility] in [place] on 10/14/2012 for a follow-up wellnesscoaching visit [...] ultimate goal of being diabetic free. Annie Pérez/arnol cc: Nicki Anthony D.N.P./NereidaN.P Electronically Signed By: ANNIE PÉREZ On: 10/28/2012 05:04 PM Source: [facility] MHSDOLBEYNONRADSYS Document Id: [id number] documented in this encounter Plan of Treatment Upcoming Encounters Date Type Specialty Care Team Description 12/26/2021 Office Visit Cardiovascular Disease Maritza Currie M.D. [address] [place] [phone] (Wo rk) 01/16/2022 Appointment Radiology Vignesh Currie M.D. [address] [place] [phone] (Wo rk) 01/16/2022 Appointment Cardiovascular Disease Maritza Currie M.D. [address] [place] [phone] (Wo rk) 01/16/2022 Appointment Radiology Vignesh Currie M.D. [address] [place] [phone] (Wo rk) 01/16/2022 Appointment Cardiovascular Disease Maritza Currie M.D. [address] [place] [phone] (Wo rk) documented as of this encounter Visit Diagnoses Not on filedocumented in this encounter
--- OUTSIDE RECORDS SUMMARY | 2021-12-10 15:08 | XMS_ITS | Encounter Summary ---
:1945 Author Organization [facility] Address [address] [place] [address] Care Team Providers Name Role Phone Unavailable Primary Care Provider Unavailable Encounter Details Date Type Department Care Team Description 05/31/2013 Hospital Encounter [facility] [place] Nicki Holt, MAL, C.N.P., D. N.P. [address] [place] [address] (Wo rk) Social History Tobacco [...] D.N.P., C.N.P. - 05/31/2013 11:29 AM CDT [id number] CHIEF COMPLAINT/REASON FOR VISIT Follow up. HISTORY [...] expressed understanding of the content. Nicki Holt D.N.P./FJairoN.P/gene Electronically Signed By: NICKI HOLT DNP, FNP On: 05/31/2013 03:52 PM Source: [facility] MHSDOLBEYNONRADSYS Document Id: [id number] documented in this encounter Miscellaneous Notes Miscellaneous - Nicki Holt D.N.P., C.N.P. - 05/31/2013 1:15 PM CDT Ambulatory Patient Summary [id number] [place], [place] [id number] Visit Information Name: ARCHIE BAZAN [facility] Number: [id number] Current Date: 05/31/2013 13:15:18 [...] emergency. Electronically Signed By: NICKI HOLT DNP, COVERAGE SPECIALIST RN Signed On:31-MAY-2013 13:15:08 Your Allergies & Intolerances [...] Date Time Location Reason Provider 06/01/2013 13:00 [facility] Family Med wellness visit [facility] Medicare Nurse Coordinato 06/09/2013 09:00 [facility] Family Med Follow up [facility] Health Heavy Truck Technician 06/23/2013 09:00 [facility] Family Med Follow up [facility] Health Heavy Truck Technician Attention: Contact your local Clinic if further appointment detail needed. Your Goals/Additional instructions: Source: [facility] POWERCHART Document Id: [id number] Miscellaneous - Nicki Holt, Maritza.N.P., C.N.P. - 05/31/2013 1:15 PM CDT Ambulatory Discharge Medication List [address] [phone] Visit Information Name: ARCHIE BAZAN [facility] Number: [id number] Visit Date: 05/31/2013 13:15:15 [...] FNP Signed On:31-MAY-2013 13:15:08 Additional Information: Source: [facility] POWERCHART Document Id: [id number] Miscellaneous - Diana aCrdoza LJairoP.N. - 05/31/2013 12:16 PM CDT Health Assessment Health Assessment Entered On: 05/31/2013 12:17 CDT Performed On: 05/31/2013 12:16 CDT by DIANA CARDOZA LPN Health Assessment Complete Health Assessment Complete or Modified : Annual Health Assessment Annual Health Assessment Completed : Yes DIANA CARDOZA LPN - 05/31/2013 12:16 CDT Nutrition Nutrition Risk Factors by History Adult : None DIANA CARDOZA PSYCHOPAEDIC NURSE - 05/31/2013 12:16 CDT Functional Current Daily Living Assistance : None DIANA CARDOZA LPN - 05/31/2013 12:16 CDT Dependent Habits Tobacco Use/Currently Using : No Tobacco Use/Last 12 months : No Tobacco Use/Advised to Quit : No Exposure to Tobacco Smoke : Care provider denies smoking in home Smoking Status : Never smoker DIANA CARDOZA PSYCHOPAEDIC NURSE - 05/31/2013 12:16 CDT Tobacco Use Grid Last Use : Never DIANA CARDOZA LPN - 05/31/2013 12:16 CDT Caffeine Use Grid Caffeine Use : None Frequency : Occasionally DIANA CARDOZA LPN - 05/31/2013 12:16 CDT Recreational Drug Use Grid Drug Use : None DIANA CARDOZA [facility] - 05/31/2013 12:16 CDT Psychosocial Domestic Abuse Concerns : None DIANA CARDOZA LPN - 05/31/2013 12:16 CDT Advance Directive Advanced Directives : No DIANA CARDOZA LPN - 05/31/2013 12:16 CDT Educ Needs Learning Style Preference Adult Grid Patient : None Family : None DIANA CARDOZA LPN - 05/31/2013 12:16 CDT Source: [facility] POWERCHART Document Id: [id number] CDT!32 Miscellaneous - Diana Cardoza L.P.N. - 05/31/2013 12:02 PM CDT Adult Police Detention Attendant Intake/History Adult Police Detention Attendant Intake/History Entered On: 05/31/2013 12:09 CDT Performed [...] By : Patient Languages : Citizen Of [place] DIANA CARDOZA [facility] - 05/31/2013 12:02 CDT Subjective Pain Symptoms [...] CARDOZA LPN - 05/31/2013 12:02 CDT [facility] Center[facility] Document Id: [id number] CDT!36 documented in this encounter Plan of Treatment Upcoming Encounters Date Type Specialty Care Team Description 12/26/2021 Office Visit Cardiovascular Disease Maritza Currie M.D. [address] [place] [phone] (Wo rk) 01/16/2022 Appointment Radiology Vignesh Currie M.D. [address] [place] [phone] (Wo rk) 01/16/2022 Appointment Cardiovascular Disease Maritza Currie M.D. [address] [place] [phone] (Wo rk) 01/16/2022 Appointment Radiology Vignesh Currie M.D. [address] [place] [phone] (Wo rk) 01/16/2022 Appointment Cardiovascular Disease Maritza Currie M.D. [address] [place] [phone] (Wo rk) documented as of this encounter Visit Diagnoses Not on filedocumented in this encounter
--- OUTSIDE RECORDS SUMMARY | 2021-12-10 15:08 | XMS_ITS | Encounter Summary ---
:1945 Author Organization [facility] Address [address] [place] [address] Care Team Providers Name Role Phone Unavailable Primary Care Provider Unavailable Encounter Details Date Type Department Care Team Description 01/27/2013 Hospital Encounter HX [facility] [place] Nicki Holt, MAL, C.N.P., D. N.P. [address] [place] [address] (Wo rk) Social History Tobacco [...] mouth daily. Take 0 11/13/2021 with food [employer] [facility]. documented as of this encounter Progress Notes Conversion, Historical Provider Ser - 01/27/2013 2:16 PM CST [id number] HEALTH AND WELLNESS COACHING Patient was seen at [facility] in [place] on 01/27/2013 for followup wellness coaching visit [...] stepping back into her wellness routine. Annie Pérez/[facility] Electronically Signed By: ANNIE PÉREZ On: 02/01/2013 01:47 PM Source: [facility] MHSDOLBEYNONRADSYS Document Id: [id number] documented in this encounter Miscellaneous Notes Miscellaneous - Nicki Holt D.N.P., C.N.P. - 02/11/2013 4:13 PM POLICE DETENTION ATTENDANT Results Notification Document Contains Addenda Addendum by NICKI HOLT DNP, FNP on 15 February 2013 15:56:41 POLICE DETENTION ATTENDANT noted Addendum by VITALIY VILLEDA LPN on 15 February 2013 09:25:17 POLICE DETENTION ATTENDANT From: VITALIY VILLEDA LPN To: NICKI HOLT DNP, FNP; Sent: 02/15/2013 09:25:17 POLICE DETENTION ATTENDANT Show up: 02/15/2013 09:24:00 POLICE DETENTION ATTENDANT Subject: RE: Results Notification Spoke with Marcial, , feeling better, not quit so tired. Still see's blood in urine off/on. Encouraged patient to make f/u appt with Nicki in 6-8wks. States, okay Addendum by VITALIY VILLEDA LPN on 14 February 2013 14:48:07 POLICE DETENTION ATTENDANT Left message to return call. From: NICKI HOLT DNP, FNP To: VITALIY VILLEDA LPN; Sent: 02/11/2013 16:13:23 POLICE DETENTION ATTENDANT ! Show up: 02/11/2013 22:13:23 [facility] Subject: Results Notification Actions: Notify patient of results Reminder Comments: please call pt. with results, contaminated specimen. thank you. Results: Date Result Type Ind Result Name MBO Review Culture Urine Source: [facility] POWERCHART Document Id: [id number] documented in this encounter Plan of Treatment Upcoming Encounters Date Type Specialty Care Team Description 12/26/2021 Office Visit Cardiovascular Disease Maritza Currie M.D. [address] [place], [place] [phone] (Wo rk) 01/16/2022 Appointment Radiology Vignesh Currie M.D. [address] [place], [place] [phone] (Wo rk) 01/16/2022 Appointment Cardiovascular Disease Maritza Currie M.D. [address] [place] [phone] (Wo rk) 01/16/2022 Appointment Radiology Vignesh Currie M.D. [address] [place] [phone] (Wo rk) 01/16/2022 Appointment Cardiovascular Disease Maritza Currie M.D. [address] [place] [phone] (Wo rk) documented as of this encounter Procedures Procedure Name Priority Date/Time Associated Diagnosis Comme nts BACTERIAL CULTURE, Routine 02/07/2013 10:00 AM Re sults for this AEROBIC, URINE POLICE DETENTION ATTENDANT procedure are in the results section. documented in this encounter Results Bacterial Culture, Aerobic, Urine (02/07/2013 10:00 AM POLICE DETENTION ATTENDANT) [facility] Method Time Signature Bacterial POWERCHART Culture, Aerobic, Urine HXPre No growth at 1 POWERCHART day. HXPre Continuing POWERCHART incubation HXPre GNR POWERCHART Comment: >100,000 cfu/mL Gram Negative Rods Identification and susceptibility to fol low. HXPre No growth at 1 day. POWERCHART HXPre Laboratory Error. [facility] 02/08/2013 14:09:15 POWERCHART HXPre (*) Gram Negative Rods reported previously has been POWERCHART removed from the report. HXPre (*) Previous positive report issued in error. Error due to POWERCHART Laboratory Error. [facility] 02/08/2013 14:09:38. HXFinal >3 organisms present - probable contamination, suggest POWERCHART repeat culture. HXFinal No further work-up. POWERCHART HXFinal (*) Gram Negative Rods reported previously has been POWERCHART removed from the report. HXFinal (*) Previous positive report issued in error. Error due to POWERCHART Laboratory Error. [facility] 02/08/2013 14:09:38. Specimen (Source) Anatomical Collection Method Collection Time Re ceived Time Location / / Volume Laterality Urine, Clean 02/07/2013 10:00 Catch AM POLICE DETENTION ATTENDANT Nicki Holt APRN, C.N.P., D.N.P. LAB MICROBIOLO GY - GENERAL ORDERABLES Performing Organization Address City/State/ZIP Code Phon e Number POWERCHART documented in this encounter Visit Diagnoses Not on filedocumented in this encounter
--- OUTSIDE RECORDS SUMMARY | 2021-12-10 15:08 | XMS_ITS | Encounter Summary ---
:1945 Author Organization [facility] Address [address] [place] [address] Care Team Providers Name Role Phone Unavailable Primary Care Provider Unavailable Encounter Details Date Type Department Care Team Description 06/07/2013 Hospital Encounter H[facility] [place] Nicki Holt, MAL, C.N.P., D. N.P. [address] [place] [address] (Wo rk) Social History Tobacco [...] by mouth daily. Take 0 11/13/2021 with [employer]. documented as of this encounter Nursing Notes Rogers Steiner - 06/07/2013 2:39 PM CDT Process Validation Engineer Intake (Adult) Process Validation Engineer Intake (Adult) Entered On: 06/07/2013 14:47 CDT Performed On: 06/07/2013 14:39 CDT by ROGERS STEINER home health aid Program Type : Post Program Diabetes Referring Provider : NICKI HOLT DNP, INVESTIGATIONS DIRECTOR Special needs : None Method Used for [...] STEINER RN - 06/07/2013 14:39 CDT Source: [employer] POWERCHART Document Id: [id number] CDT!24 documented in this encounter Plan of Treatment Upcoming Encounters Date Type Specialty Care Team Description 12/26/2021 Office Visit Cardiovascular Disease Maritza Currie M.D. [address] [place] [phone] (Wo rk) 01/16/2022 Appointment Radiology Vignesh Currie M.D. [address] [place] [phone] (Wo rk) 01/16/2022 Appointment Cardiovascular Disease Maritza Currie M.D. [address] [place] [phone] (Wo rk) 01/16/2022 Appointment Radiology Vignesh Currie M.D. [address] [place] [phone] (Wo rk) 01/16/2022 Appointment Cardiovascular Disease Maritza Currie M.D. [address] [place] [phone] (Wo rk) documented as of this encounter Visit Diagnoses Not on filedocumented in this encounter Additional Health Concerns Assessment Noted Time PHQ-9 Depression Total Score: 1 06/01/2013 1:42 PM CDT documented as of this encounter
--- OUTSIDE RECORDS SUMMARY | 2021-12-10 15:08 | XMS_ITS | Encounter Summary ---
:1945 Author Organization [facility] Address [address] [place] [address] Care Team Providers Name Role Phone Unavailable Primary Care Provider Unavailable Encounter Details Date Type Department Care Team Description 12/30/2012 Hospital Encounter HX [facility] [place] Nicki Anthony, MAL, C.N.P., D. N.P. [address] [place] [address] (Wo rk) Social History Tobacco [...] mouth daily. Take 0 11/13/2021 with food [employer]. documented as of this encounter Progress Notes Conversion, Historical Provider Ser - 12/30/2012 9:11 AM CST [id number] HEALTH & WELLNESS COACHING Patient was seen at [facility] in [place] on 12/30/2012 for follow-up wellness coaching visit [...] apple and almond butter, nuts or yogurt, Nepali yogurt especially. She would like to a [...] continuing wellness and maintaining her goals. Annie Pérez/arnol cc: Verena Lucas.P./F.N.P Electronically Signed By: ANNIE PÉREZ On: 01/04/2013 10:03 AM Source: [facility] MHSDOLBEYNONRADSYS Document Id: [id number] documented in this encounter Plan of Treatment Upcoming Encounters Date Type Specialty Care Team Description 12/26/2021 Office Visit Cardiovascular Disease Maritza Currie M.D. [address] [place] [phone] (Wo rk) 01/16/2022 Appointment Radiology Vignesh Currie M.D. [address] [place] [phone] (Wo rk) 01/16/2022 Appointment Cardiovascular Disease Maritza Currie M.D. [address] [place] [address] [phone] (Wo rk) 01/16/2022 Appointment Radiology Vignesh Currie M.D. [address] [place] [address] [phone] (Wo rk) 01/16/2022 Appointment Cardiovascular Disease Maritza Currie M.D. [address] [place] [phone] (Wo rk) documented as of this encounter Visit Diagnoses Not on filedocumented in this encounter
--- OUTSIDE RECORDS SUMMARY | 2021-12-10 15:08 | XMS_ITS | Encounter Summary ---
:1945 Author Organization [facility] Address [address] [place] [address] Care Team Providers Name Role Phone Unavailable Primary Care Provider Unavailable Encounter Details Date Type Department Care Team Description 02/07/2013 Hospital Encounter HX [facility] Nicki Holt, MAL, C.N.P., D.N.P. [address] [phone] (Wo rk) Social History Tobacco Use [...] by mouth daily. Take 0 11/13/2021 with [employer]. documented as of this encounter Miscellaneous Notes Miscellaneous - Nicki Holt, Maritza.N.P., C.N.P. - 02/07/2013 12:29 PM FERTILIZER PROCESSING SUPERVISOR Normal Results Letter 07 February 2013 ARCHIE BAZAN [address] [place] [id number] Dear ARCHIE BAZAN, As we discussed, your [...] 04/22/2012 0.30 - 5.00 Sincerely, NICKI HOLT [address] [place], [place] [id number] Electronic Signature Electronically Signed By: NICKI HOLT DNP, FNP On: 07 February 2013 This document has images extracted. Source: [facility] POWERCHART Document Id: [id number] documented in this encounter Plan of Treatment Upcoming Encounters Date Type Specialty Care Team Description 12/26/2021 Office Visit Cardiovascular Disease Maritza Currie M.D. [address] [place] [phone] (Wo rk) 01/16/2022 Appointment Radiology Vignesh Currie M.D. [address] [place] [phone] (Wo rk) 01/16/2022 Appointment Cardiovascular Disease Maritza Currie M.D. [address] [place] [address] [phone] (Wo rk) 01/16/2022 Appointment Radiology Vignesh Currie M.D. [address] [place] [address] [phone] (Wo rk) 01/16/2022 Appointment Cardiovascular Disease Maritza Currie M.D. [address] [place] [phone] (Wo rk) documented as of this encounter Procedures Procedure Name Priority Date/Time Associated Comments Diagnosis URINALYSIS, ROUTINE Routine 02/07/2013 9:24 Resul ts for this AM FERTILIZER PROCESSING SUPERVISOR procedure are i n the results section. URINE MICROSCOPIC Routine 02/07/2013 9:24 Results for this AM FERTILIZER PROCESSING SUPERVISOR procedure are i n the results section. LIPID PANEL, S Routine 02/07/2013 9:21 Results fo r this AM FERTILIZER PROCESSING SUPERVISOR procedure are i n the results section. ALANINE AMINOTRANSFERASE Routine 02/07/2013 9:21 Results for this (ALT), S/P AM FERTILIZER PROCESSING SUPERVISOR procedure are i n the results section. THYROID-STIMULATING Routine 02/07/2013 9:21 Resul ts for this HORMONE-SENSITIVE AM FERTILIZER PROCESSING SUPERVISOR procedure are in (S-TSH) the results section. HEMOGLOBIN A1C, B Routine 02/07/2013 9:21 Results for this AM FERTILIZER PROCESSING SUPERVISOR procedure are i n the results section. documented in this encounter Results Urine Microscopic (02/07/2013 9:24 AM FERTILIZER PROCESSING SUPERVISOR) [facility] gist Method Time Signature HXUr WBC 4-10 POWERCHART Red Blood Cell 0-2 0 - 2 POWERCHART Clump, Urine HXUr Bacteria Few POWERCHART HXUr Epithelial Occasional POWERCHART Comment: squamous Specimen Anatomical Collection Method Collection Time Receive d Time (Source) Location / / Volume Laterality Urine 02/07/2013 9:24 AM 3 9:24 FERTILIZER PROCESSING SUPERVISOR AM FERTILIZER PROCESSING SUPERVISOR Nicki Holt APRN, C.N.P., D.N.P. LAB URINE ORDE RABLES Performing Organization Address City/State/ZIP Code Phon e Number POWERCHART Urinalysis, Routine (02/07/2013 9:24 AM FERTILIZER PROCESSING SUPERVISOR) [facility] gist Method Time Signature HXUr Color Yellow Yellow POWERCHART Appearance Clear Clear POWERCHART Glucose Negative Negative POWERCHART HXBILIRUBIN Negative Negative POWERCHART Ketones, QL(U) Negative Negative POWERCHART Specific 1.020 1.000 - POWERCHART [place], POCT, U 1.030 pH, POCT, Urine 5.5 5.0 - 8.0 POWERCHART Protein, Ur, Dip Negative Negative POWERCHART Urobilinogen 0.2 POWERCHART HXNITRITE Negative Negative POWERCHART HXBLOOD 1+ Negative POWERCHART Leukocyte 2+ Negative POWERCHART Esterase Source Clean Void POWERCHART Urine Specimen (Source) Anatomical Collection Method Collection Time Re ceived Time Location / / Volume Laterality Urine 02/07/2013 9:24 AM FERTILIZER PROCESSING SUPERVISOR Nicki Holt APRN, C.N.P., D.N.P. LAB URINE ORDE RABLES Performing Organization Address City/[facility]/ZIP Code Phon e Number POWERCHART (ABNORMAL) Thyroid-Stimulating Hormone-Sensitive (s-TSH) (02/07/2013 9:21 AM FERTILIZER PROCESSING SUPERVISOR) Analysis Performed At [facility] logist Time Signature TSH 6.49 (H) 0.30 - 5.00 POWERCHART (Thyrotropin) MCIUML Specimen (Source) Anatomical Collection Method Collection Time Re ceived Time Location / / Volume Laterality Blood 02/07/2013 9:21 AM FERTILIZER PROCESSING SUPERVISOR Nicki Holt APRN, C.N.P., D.N.P. LAB BLOOD ADD- ON Performing Organization Address City/State/ZIP Code Phon e Number POWERCHART (ABNORMAL) ALT (Alanine Aminotransferase) (02/07/2013 9:21 AM FERTILIZER PROCESSING SUPERVISOR) P athologist Signature Alanine 42 (H) 15 - 37 UL POWERCHART Amniotransferas e, LD Specimen (Source) Anatomical Collection Method Collection Time Re ceived Time Location / / Volume Laterality Blood 02/07/2013 9:21 AM FERTILIZER PROCESSING SUPERVISOR Nicki Holt APRN, C.N.P., D.N.P. LAB BLOOD ADD- ON Performing Organization Address City/State/[facility] Code Phon e Number POWERCHART (ABNORMAL) Lipid Panel (02/07/2013 9:21 AM FERTILIZER PROCESSING SUPERVISOR) P athologist Signature Cholesterol, 160 0 - [...] / Volume Laterality Blood 02/07/2013 9:21 AM FERTILIZER PROCESSING SUPERVISOR Nicki Holt APRN, C.N.P., D.N.P. LAB BLOOD ADD- ON Performing Organization Address City/[facility]/ZIP Code Phon e Number POWERCHART (ABNORMAL) Hemoglobin A1c (02/07/2013 9:21 AM FERTILIZER PROCESSING SUPERVISOR) Analysis Performed At Patho logist Time Signature Hemoglobin A1c, 7.46 (H) 4.00 - POWERCHART B 6.00 Specimen (Source) Anatomical Collection Method Collection Time Re ceived Time Location / / Volume Laterality Blood 02/07/2013 9:21 AM FERTILIZER PROCESSING SUPERVISOR Nicki Holt APRN, C.N.P., D.N.P. LAB BLOOD ADD- ON Performing Organization Address City/State/ZIP Code Phon e Number POWERCHART documented in this encounter Visit Diagnoses Not on filedocumented in this encounter
--- OUTSIDE RECORDS SUMMARY | 2021-12-10 15:08 | XMS_ITS | Encounter Summary ---
:1945 Author Organization [facility] Address [address] [place] [address] Care Team Providers Name Role Phone Unavailable Primary Care Provider Unavailable Encounter Details Date Type Department Care Team Description 12/30/2012 Hospital Encounter HX [facility] Nicki Anthony, MAL, C.N.P., D.N.P. [address] [place], [place] [phone] ([place]) Social History Tobacco Use Types [...] mouth daily. Take 0 11/13/2021 with food [employer]. documented as of this encounter Plan of Treatment Upcoming Encounters Date Type Specialty Care Team Description 12/26/2021 Office Visit Cardiovascular Disease Maritza Currie M.D. [address] [place], [place] [phone] ([place]) 01/16/2022 Appointment Radiology Vignesh Currie M.D. [address] [place], [place] [phone] ([place]) 01/16/2022 Appointment Cardiovascular Disease Maritza Currie M.D. [address] [place], [place] [phone] (Wo rk) 01/16/2022 Appointment Radiology Vignesh Currie M.D. [address] [place], [place] [phone] (Wo rk) 01/16/2022 Appointment Cardiovascular Disease Maritza Currie M.D. [address] [place], [place] [phone] (Wo rk) documented as of this encounter Procedures Procedure Name Priority Date/Time Associated Diagnosis Comme nts THYROID-STIMULATING Routine 12/30/2012 9:04 AM Re sults for this HORMONE-SENSITIVE CHEF MANAGER procedure are in (S-TSH) the results section. documented in this encounter Results Thyroid-Stimulating Hormone-Sensitive (s-TSH) (12/30/2012 9:04 AM CHEF MANAGER) P athologist Signature TSH 4.06 0.30 - 5.00 POWERCHART (Thyrotropin) MCIUML Specimen (Source) Anatomical Collection Method Collection Time Re ceived Time Location / / Volume Laterality Blood 12/30/2012 9:04 AM CHEF MANAGER Nicki Anthony APRN, C.N.P., D.N.P. LAB BLOOD ADD- ON Performing Organization Address City/State/ZIP Code Phon e Number POWERCHART documented in this encounter Visit Diagnoses Not on filedocumented in this encounter
--- OUTSIDE RECORDS SUMMARY | 2021-12-10 15:08 | XMS_ITS | Encounter Summary ---
:1945 Author Organization [facility] Address [address] [place] [address] Care Team Providers Name Role Phone Unavailable Primary Care Provider Unavailable Encounter Details Date Type Department Care Team Description 05/11/2013 Hospital Encounter HX [facility] Nicki Anthony, MAL, C.N.P., D. N.P. [address] [place] [address] (Wo rk) Social History Tobacco [...] mouth daily. Take 0 11/13/2021 with food [employer]. documented as of this encounter Progress Notes Conversion, Historical Provider Ser - 05/11/2013 8:57 AM CDT [id number] REFERRAL SOURCE Nicki Anthony. Patient was seen in [facility] on 05/11/2013 for followup wellness coaching visit [...] ANNIE PÉREZ On: 05/13/2013 01:48 PM Source: [facility] MHSDOLBEYNONRADSYS Document Id: [id number] documented in this encounter Plan of Treatment Upcoming Encounters Date Type Specialty Care Team Description 12/26/2021 Office Visit Cardiovascular Disease Maritza Currie M.D. [address] [place], [place] [phone] ([place]) 01/16/2022 Appointment Radiology Vignesh Currie M.D. [address] [place] [phone] ([place]) 01/16/2022 Appointment Cardiovascular Disease Maritza Currie M.D. [address] [place] [phone] (Wo rk) 01/16/2022 Appointment Radiology Vignesh Currie M.D. [address] [place], [place] [phone] (Wo rk) 01/16/2022 Appointment Cardiovascular Disease Maritza Currie M.D. [address] [place], [place] [phone] (Wo rk) documented as of this encounter Visit Diagnoses Not on filedocumented in this encounter
--- OUTSIDE RECORDS SUMMARY | 2021-12-10 15:08 | XMS_ITS | Encounter Summary ---
:1945 Author Organization [facility] Address [address] [place] [address] Care Team Providers Name Role Phone Unavailable Primary Care Provider Unavailable Encounter Details Date Type Department Care Team Description 11/16/[address] [facility] [place] Vickey Holt, MAL, C.N.P., D. N.P. [address] [place] [address] (Wo rk) Social History Tobacco [...] this encounter H&P Notes Vickey Holt D.N.P., C.N.P. - 11/16/2012 8:36 AM CDT [id number] CHIEF COMPLAINT/REASON FOR VISIT Preoperative physical examination. HISTORY OF PRESENT ILLNESS The patient is a 67-year-old female who presents to the clinic today for a routine preoperative examination for right shoulder rotator cuff repair that she is going to be undergoing on 11/23/[address] Velasco [facility] [place]. She otherwise indicates that she is doing [...] and reactive to light and accommodation OROPHARYNX: [place] and moist. TMs: Bilateral tympanic membranes are [...] a ventricular rate 66 beats per minute, CA interval 142 ms, QRS duration 82 ms, [...] type 2 diabetes mellitus. I recommend that [id number] medication be discontinued 1 week prior to [...] expressed understanding of the content Vickey Holt D.N.P./Elmer/nela Electronically Signed By: VICKEY HOLT DNP, FNP On: 11/16/2012 11:01 AM Source: [facility] MHSDOLBEYNONRADSYS Document Id: [id number] documented in this encounter Miscellaneous Notes Miscellaneous - Vickey Holt D.N.P., Deana.N.P. - 11/16/2012 10:11 AM CDT Ambulatory Depart Summary [address] [address] Visit Information Name: MARCIAL BAZAN [facility] Number: [id number] Visit Date: 11/16/2012 10:11:07 Attending [...] your provider for clarification. Additional Information: Source: [facility] POWERCHART Document Id: [id number] Miscellaneous - Vickey Holt D.N.P., C.N.P. - 11/16/2012 10:11 AM CDT Ambulatory Patient Summary [address] [place] [address] Visit Information Name: MARCIAL BAZAN [facility] Number: [id number] Current Date: 11/16/2012 10:11:08 Physicians [...] Date Time Location Reason Provider 11/18/2012 09:15 [facility] Family Med F/U - HEALTH GRADE TEACHER [facility] Health Police Communications Operator Your Goals/Additional instructions: Source: [facility] POWERCHART Document Id: [id number] Miscellaneous - Vickey Holt, Maritza.N.P., C.N.P. - 11/16/2012 9:04 AM CDT Normal Results Letter 16 November 2012 MARCIAL BAZAN [address] [place] [id number] Dear MARCIAL BAZAN, I am pleased to [...] (%) (L) 17.0 11/16/2012 23.0 - 44.0 Williams % (%) 5.9 11/16/2012 2.0 - 18.0 Eos % (%) 2.0 11/16/2012 1.0 - 5.0 Baso % (%) 0.5 11/16/2012 0.0 - 1.0 Neutro Absolute (10(9)/L) 5.52 11/16/2012 1.70 - 7.00 Lymph Absolute (x10(9)/L) 1.26 11/16/2012 0.90 - 2.90 Williams Absolute (x10(9)/L) 0.44 11/16/2012 0.30 - 0.90 Eos Absolute (x10(9)/L) 0.15 11/16/2012 0.05 - 0.50 Baso Absolute (x10(9)/L) 0.04 11/16/2012 0.00 - 0.30 Differential? Auto 11/16/2012 Sincerely, VICKEY HOLT [address] [place], [place] [id number] Electronic Signature Electronically Signed By: VICKEY HOLT DNP, FINANCIAL CONTROLLER On: 16 November 2012 This document has images extracted. Source: [facility] POWERCHART Document Id: [id number] Electronically signed by Sae [facility] Assistant Nurse Manager [id number] at 07/16/2016 7:03 PM CDT Miscellaneous - Sylvia Darnell, L.P.N. - 11/16/2012 8:50 AM CDT Adult Bell Tier Intake/History Adult Bell Tier Intake/History Entered On: 11/16/2012 8:57 CDT Performed On: 11/16/2012 8:50 CDT by SYLVIA DARNELL WINEMAKER Intake Chief Complaint : Pre-op for right [...] Information Given By : Patient Languages : Fijian SYLVIA DARNELL LPN - 11/16/2012 8:50 CDT [...] DARNELL LPN - 11/16/2012 8:50 CDT Source: [facility] POWERCHART Document Id: [id number] CDT!39 Miscellaneous - Sylvia Darnell L.P.N. - 11/16/2012 8:50 AM CDT Obstructive Sleep Apnea Obstructive Sleep Apnea Entered On: 11/16/2012 8:58 CDT Performed On: 11/16/2012 8:50 CDT by SYLVIA DARNELL LPN JUAN Screening Known Obstructive Sleep Apnea : No - NOT diagnosed with JUAN SYLVIA DARNELL LPN - 11/16/2012 8:50 CDT JUAN Assessment Do [...] DARNELL LPN - 11/16/2012 8:50 CDT [facility] Document Id: [id number] CDT!10 documented in this encounter Plan of Treatment Upcoming Encounters Date Type Specialty Care Team Description 12/26/2021 Office Visit Cardiovascular Disease Maritza Currie M.D. [address] [place] [phone] ([place]) 01/16/2022 Appointment Radiology Vignesh Currie M.D. [address] [place] [address] [phone] ([place]) 01/16/2022 Appointment Cardiovascular Disease Maritza Currie M.D. [address] [place] [address] [phone] ([place]) 01/16/2022 Appointment Radiology Vignesh Currie M.D. [address] [place] [address] [phone] ([place]) 01/16/2022 Appointment Cardiovascular Disease Maritza Currie M.D. [address] [place] [address] [phone] ([place]) documented as of [...] (ABNORMAL) Automated Differential (11/16/2012 8:49 AM CDT) Patholo gist Method Time Signature Neutro % 74.6 42.0 - POWERCHART 77.0 Lymphocytes % 17.0 (L) 23.0 - POWERCHART 44.0 HX Williams % 5.9 2.0 - 18.0 POWERCHART HX [...] AM 3 8:49 CDT AM CDT Vickey Holt APRN, C.N.P., D.N.P. LAB BLOOD ADD- ON Performing Organization Address City/State/ZIP Code Phon e Number POWERCHART CBC with Differential (11/16/2012 8:49 AM CDT) P athologist Signature Leukocytes 7.4 3.4 - 10.5 POWERCHART [id number] Erythrocytes 4.07 3.90 - POWERCHART 5.03 [id number] Hemoglobin 12.0 12.0 - POWERCHART 15.5 GDL [...] (Comprehensive Metabolic Panel) (11/16/2012 8:49 AM CDT) [facility] gist Method Time Signature Anion Gap 12 [...] POWERCHART GDL HXeGFR (MDRD) >60 >=60 POWERCHART [id number] 2 eGFR Black/ >60 >=60 POWERCHART Kazakh [id number] 2 Specimen (Source) Anatomical Collection Method Collection Time Re ceived Time Location / / Volume Laterality Blood 11/16/2012 8:49 AM CDT Vickey Holt APRN, C.N.P., D.N.P. LAB BLOOD ADD- ON Performing Organization Address City/State/ZIP Code Phon e Number POWERCHART documented in this encounter Visit Diagnoses Not on filedocumented in this encounter
--- OUTSIDE RECORDS SUMMARY | 2021-12-10 15:08 | XMS_ITS | Encounter Summary ---
:1945 Author Organization [facility] Address [address] [place] [address] Care Team Providers Name Role Phone Unavailable Primary Care Provider Unavailable Encounter Details Date Type Department Care Team Description 11/04/2012 Hospital Encounter HX [facility] [place] Vickey Holt, MAL, C.N.P., D. N.P. [address] [place] [address] (Wo rk) Social History Tobacco [...] Progress Notes Vickey Holt D.N.P., C.N.P. - 11/04/2012 2:24 PM CDT [id number] CHIEF COMPLAINT/REASON FOR VISIT 1. Review medications. [...] expressed understanding of the content Vickey Holt D.N.P./Stanislav.NLizbeth/shi Electronically Signed By: VICKEY HOLT DNP, FNP On: 11/05/2012 07:59 AM Source: [facility] MHSDOLBEYNONRADSYS Document Id: [id number] documented in this encounter Miscellaneous Notes Miscellaneous - Vickey Holt D.N.Kvng, C.N.P. - 11/04/2012 3:50 PM CDT Ambulatory Depart Summary [address] [address] Visit Information Name: ELIDASTEVEN MARCIAL MAI [facility] Number: [id number] Visit Date: 11/04/2012 15:50:45 Attending Provider: VICKEY HOLT DNP, FNP Primary Care Provider: VICKEY HOLT DNP, FNP ELIDASTEVENJOSE MIGUELPATRICK MAI has been given the following [...] your provider for clarification. Additional Information: Source: [facility] POWERCHART Document Id: [id number] Miscellaneous - Vickey Holt D.N.P., C.N.P. - 11/04/2012 3:50 PM CDT Ambulatory Patient Summary [address] [address] Visit Information Name: MARCIAL BAZAN [facility] Number: [id number] Current Date: 11/04/2012 15:50:46 Physicians Attending Provider: VICKEY HOLT DNP, FNP [...] Date Time Location Reason Provider 11/18/2012 09:15 [facility] Family Med F/U - HEALTH PNEUMATIC SYSTEM CONVEYOR OPERATOR [facility] Health [place] Machine Tender Your Goals/Additional instructions: Source: [facility] POWERCHART Document Id: [id number] Miscellaneous - Sylvia Darnell L.P.N. - 11/04/2012 2:31 PM CDT Adult Personal Care Service Provider Intake/History Adult Personal Care Service Provider Intake/History Entered On: 11/04/2012 14:39 CDT Performed On: 11/04/2012 14:31 CDT by SYLVIA DARNELL SURGERY AIDE Intake Chief Complaint : Consult on right [...] Mass Index : 31.6 kg/m2 SYLVIA DARNELL [facility] - 11/04/2012 14:31 CDT General Info Information Given By : Patient Languages : Mauritian SYLVIA DARNELL [facility] - 11/04/2012 14:31 CDT Subjective Pain Symptoms : No SYLVIA DARNELL [facility] - 11/04/2012 14:31 CDT Dependent Habits Tobacco Use/Currently Using : No Tobacco Use/Last 12 months : No Exposure to Tobacco Smoke : Care provider denies smoking in home Smoking Status : Never smoker SYLVIA DARNELL [facility] - 11/04/2012 14:31 CDT Tobacco Use Grid Last Use : Never SYLVIA DARNELL [facility] - 11/04/2012 14:31 CDT Alcohol Use : No SYLVIA DARNELL [facility] - 11/04/2012 14:31 CDT Caffeine Use Grid Caffeine Use : Current Type : Tea Frequency : Occasionally SYLVIA DARNELL [facility] - 11/04/2012 14:31 CDT Recreational Drug Use Grid Drug Use : None SYLVIA DARNELL [facility] - 11/04/2012 14:31 CDT Source: [facility] POWERCHART Document Id: [id number] CDT!40 documented in this encounter Plan of Treatment Upcoming Encounters Date Type Specialty Care Team Description 12/26/2021 Office Visit Cardiovascular Disease Maritza Currie M.D. [address] [place] [address] [phone] ([place]o [place]) 01/16/2022 Appointment Radiology Vignesh Currie M.D. [address] [place] [address] [phone] (Wo rk) 01/16/2022 Appointment Cardiovascular Disease Maritza Currie M.D. [address] [place] [address] [phone] (Wo rk) 01/16/2022 Appointment Radiology Vignesh Currie M.D. [address] [place] [address] [phone] (Wo rk) 01/16/2022 Appointment Cardiovascular Disease Maritza Crurie M.D. [address] [place] [address] [phone] (Wo rk) documented as of this encounter Visit Diagnoses Not on filedocumented in this encounter
--- OUTSIDE RECORDS SUMMARY | 2021-12-10 15:08 | XMS_ITS | Encounter Summary ---
:1945 Author Organization [facility] Address [address] [place] [address] Care Team Providers Name Role Phone Unavailable Primary Care Provider Unavailable Encounter Details Date Type Department Care Team Description 12/14/2013 Hospital Encounter HX [facility] Nicki Holt, MAL, C.N.P., D.N.P. [address] [place], [place] [phone] (Wo rk) Social History [...] Miscellaneous - Nicki Holt, Maritza.N.P., C.N.P. - 12/16/2013 6:16 AM CDT Normal Results Letter 16 December 2013 ARCHIE BAZAN [address] [place], [place] [address] [facility] [id number] Dear ARCHIE BAZAN, Your kidney function, electrolytes [...] 7.49 05/26/2013 - <=5.6 Sincerely, NICKI HOLT [address] [id number] Electronic Signature Electronically Signed By: NICKI HOLT DNP, ENGINE REPAIRER On: 16 December 2013 This document has images extracted. Source: [facility] POWERCHART Document Id: [id number] documented in this encounter Plan of Treatment Upcoming Encounters Date Type Specialty Care Team Description 12/26/2021 Office Visit Cardiovascular Disease Maritza Currie M.D. [address] [place], [place] [phone] ([place]) 01/16/2022 Appointment Radiology Vignesh Currie M.D. [address] [place], [place] [phone] ([place]) 01/16/2022 Appointment Cardiovascular Disease Maritza Currie M.D. [address] [place], [place] [phone] ([place]) 01/16/2022 Appointment Radiology Vignesh Currie M.D. [address] [place], [place] [phone] (Wo rk) 01/16/2022 Appointment Cardiovascular Disease Maritza Currie M.D. [address] [place], [place] [phone] (Wo rk) documented as [...] Blood 12/12/2013 9:10 AM CDT Nicki Holt APRN, C.N.P., D.N.P. LAB BLOOD ADD- ON Performing Organization Address City/State/ZIP Code Phon e Number POWERCHART documented in this encounter Visit Diagnoses Not on filedocumented in this encounter Additional Health Concerns Assessment Noted Time PHQ-9 Depression Total Score: 1 06/01/2013 1:42 PM CDT documented as of this encounter
--- OUTSIDE RECORDS SUMMARY | 2021-12-10 15:08 | XMS_ITS | Encounter Summary ---
:1945 Author Organization [facility] Address [address] [place] [address] Care Team Providers Name Role Phone Unavailable Primary Care Provider Unavailable Encounter Details Date Type Department Care Team Description 11/18/2012 Hospital Encounter HX [facility] [place] Nicki Anthony, MAL, C.N.P., D. N.P. [address] [place] [address] (Wo rk) Social History Tobacco [...] mouth daily. Take 0 11/13/2021 with food [employer]. documented as of this encounter Progress Notes Conversion, Historical Provider Ser - 11/18/2012 9:20 AM CDT [id number] HEALTH AND WELLNESS COACHING Patient was seen at [facility] in [place] for follow-up wellness coaching visit on 11/18/2012 [...] for her during her recovery time. Annie Pérez/[facility] Electronically Signed By: ANNIE PÉREZ On: 11/23/2012 03:53 PM Source: [facility] MHSDOLBEYNONRADSYS Document Id: [id number] documented in this encounter Plan of Treatment Upcoming Encounters Date Type Specialty Care Team Description 12/26/2021 Office Visit Cardiovascular Disease Maritza Currie M.D. [address] [place] [address] [phone] (Wo rk) 01/16/2022 Appointment Radiology Vignesh Currie M.D. [address] [place] [address] [phone] (Wo rk) 01/16/2022 Appointment Cardiovascular Disease Maritza Currie M.D. [address] [place] [address] [phone] (Wo rk) 01/16/2022 Appointment Radiology Vignesh Currie M.D. [address] [place] [address] [phone] (Wo rk) 01/16/2022 Appointment Cardiovascular Disease Maritza Currie M.D. [address] [place] [address] [phone] (Jean rk) documented as of this encounter Visit Diagnoses Not on filedocumented in this encounter
--- OUTSIDE RECORDS SUMMARY | 2021-12-10 15:08 | XMS_ITS | Encounter Summary ---
:1945 Author Organization [facility] Address [address] [place] [address] Care Team Providers Name Role Phone Unavailable Primary Care Provider Unavailable Encounter Details Date Type Department Care Team Description 03/13/2014 Hospital Encounter [facility]X [facility] [place] Vickey Holt, MAL, C.N.P., D. N.P. [address] [place] [address] (Wo rk) Social History Tobacco [...] Comments Blood Pressure 120/76 03/13/2014 8:32 AM LEGISLATIVE AIDE Pulse 68 03/13/2014 8:32 AM LEGISLATIVE AIDE Temperature - - Respiratory Rate 16 03/13/2014 8:32 AM LEGISLATIVE AIDE Oxygen Saturation - - Inhaled Oxygen Concentration - - Weight 87.3 kg (192 lb 7.4 oz) 03/13/2014 8:32 AM LEGISLATIVE AIDE Height 158 cm (5' 2.21) 03/13/2014 8:32 AM LEGISLATIVE AIDE Body Mass Index 34.97 03/13/2014 8:32 AM LEGISLATIVE AIDE documented in this encounter Medications at Time of Discharge Medication Sig Dispensed Refills Start Date End Date ASPIRIN ORAL Take 81 mg by mouth daily. Take 0 11/13/2021 with food for heart health. documented as of this encounter Progress Notes Vickey Holt D.N.P., CJairoN.P. - 03/13/2014 8:29 AM CST [id number] CHIEF COMPLAINT/REASON FOR VISIT Follow up type [...] past she has also utilized a Health Solar Manufacturer'S Representative here at the [facility] in [place] (whose services are no longer available) in which she had significant reduction in weight and overall improvement of her hemoglobin A1c. After the Health Solar Manufacturer'S Representative services were no longer available the patient [...] expressed understanding of the content. Vickey Holt D.N.P./Elmer/gene Electronically Signed By: VICKEY HOLT DNP, FNP On: 03/14/2014 07:28 AM Source: [facility] MHSDOLBEYNONRADSYS Document Id: [id number] SLATIVE AIDE documented in this encounter Miscellaneous Notes Miscellaneous - Vickey Holt D.N.P., C.N.P. - 03/13/2014 9:35 AM LEGISLATIVE AIDE Ambulatory Patient Summary [address] [id number] Visit Information Name: MARCIAL BAZAN PAU [facility] Number: [id number] Current Date: 03/13/2014 09:35:16 Physicians Attending Provider: VICKEY HOLT DNP, FNP [...] 30 minutes before breakfast New Routed to [place] [id number] levothyroxine (levothyroxine 75 mcg (0.075 mg) oral [...] emergency. Electronically Signed By: VICKEY HOLT DNP, FOREST RESOURCES PROFESSOR Signed On:13-MAR-2014 09:35:03 Your Allergies & Intolerances [...] appointment detail needed. Your Goals/Additional instructions: Source: [facility] POWERCHART Document Id: [id number] SLATIVE AIDE Miscellaneous - Vickey Holt D.N.P., C.N.P. - 03/13/2014 9:35 AM LEGISLATIVE AIDE Ambulatory Discharge Medication List [address] [id number] Visit Information Name: ELIDASTEVEN MARCIAL ARENASIEL [facility] Number: [id number] Visit Date: 03/13/2014 09:35:13 Attending Provider: VICKEY HOLT DNP, FNP Primary [...] 30 minutes before breakfast New Routed to [place] [id number] levothyroxine (levothyroxine 75 mcg (0.075 mg) oral [...] emergency. Electronically Signed By: VICKEY HOLT DNP, FOREST RESOURCES PROFESSOR Signed On:13-MAR-2014 09:35:03 Additional Information: Source: [facility] POWERCHART Document Id: [id number] SLATIVE AIDE Miscellaneous - Sylvia Darnell L.P.N. - 03/13/2014 8:32 AM CST Adult Beef Cattle Farmer Intake/History Adult Beef Cattle Farmer Intake/History Entered On: 03/13/2014 8:48 LEGISLATIVE AIDE Performed On: 03/13/2014 8:32 LEGISLATIVE AIDE by DARNELL, HETTIE L CUBE MACHINE TENDER Intake Temperature Core : 36.4 DegC(Converted to: 97.5 DegF) (LOW) Peripheral Pulse Rate : 68 /min Respiratory Rate : 16 /min Heart Rhythm : Regular Systolic Blood Pressure : 120 mmHg Diastolic Blood Pressure : 76 mmHg NIBP Mean : 91 mmHg BP Location : Left upper extremity Blood Pressure Cuff Size : Large SYLVIA DARNELL Justin NIX - 03/13/2014 8:50 LEGISLATIVE AIDE Height : 158 cm(Converted to: 5 ft 2 inch(es), 62 inch(es)) Actual Weight : 87.3 kg(Converted to: 192 lb 7 oz) Weight Source : Standing scale Dosing Weight Clinic : 87.3 kg Clinic BSA : 1.96 Body Mass Index : 34.97 kg/m2 SYLVIA DARNELL LPN - 03/13/2014 8:32 LEGISLATIVE AIDE General Info Information Given By : Patient Preferred Communication Mode : Verbal Languages : Luxembourgish Is Patient Female and 13-50 no hysterectomy : No SYLVIA DARNELL LPN - 03/13/2014 8:32 LEGISLATIVE AIDE Subjective Pain Symptoms : No SYLVIA DARNELL LPN - 03/13/2014 8:32 LEGISLATIVE AIDE Dependent Habits Tobacco Use/Currently Using : No Tobacco Use/Last 12 months : No Tobacco Use/Advised to Quit : No Exposure to Tobacco Smoke : Care provider denies smoking in home Smoking Status : Never smoker SYLVIA DARNELL LPN - 03/13/2014 8:32 LEGISLATIVE AIDE Tobacco Use Grid Last Use : Never SYLVIA DARNELL LPN - 03/13/2014 8:32 LEGISLATIVE AIDE Alcohol Use : No SYLVIA DARNELL LPN - 03/13/2014 8:32 LEGISLATIVE AIDE Caffeine Use Grid Caffeine Use : None Frequency : Occasionally Amount : 1 cup per week SYLVIA DARNELL LPN - 03/13/2014 8:32 LEGISLATIVE AIDE Recreational Drug Use Grid Drug Use : None SYLVIA DARNELL LPN - 03/13/2014 8:32 LEGISLATIVE AIDE ID Screen Drug Resistant Organism : No Travel Within Last 21 Days : No SYLVIA DARNELL LPN 03/13/2014 8:32 LEGISLATIVE AIDE Source: [facility] POWERCHART Document Id: [id number] LEGISLATIVE AIDE!11 SLATIVE AIDE Telephone Encounter - Conversion, Historical Provider Ser - 12/21/2013 12:24 PM CST diarrhea Document Contains Addenda Addendum by JENA BEYER V on 23 December 2013 10:56:18 LEGISLATIVE AIDE Pt called but only able to LVM Addendum by VICKEY HOLT DNP, FNP on 23 December 2013 10:46:40 LEGISLATIVE AIDE From: VICKEY HOLT DNP, FNP To: [place] Nurse Line; Sent: 12/23/2013 10:46:40 LEGISLATIVE AIDE Subject: RE: diarrhea Addendum by VICKEY HOLT DNP, FNP on 23 December 2013 10:46:37 LEGISLATIVE AIDE pt. to give it more time, her diarrhea may have been from a gastroentesital viral infection. pleaseadvise. Addendum by JENA BEYER V on 22 December 2013 08:58:24 LEGISLATIVE AIDE From: JENA BEYER V ([place] Nurse Line) To: VICKEY HOLT DNP, FNP; Sent: 12/22/2013 08:58:24 LEGISLATIVE AIDE Subject: RE: diarrhea Pt reported she picked up the 1000mg ER not immediate release. Pharmacy contacted & verified this, so diarrhea in NOT from IR .Should pt just give it a bit more time? Or fill the new RX for 500mg ER x2 tabs & divide the dosing? Addendum by VICKEY HOLT DNP, FNP on 22 December 2013 05:33:14 LEGISLATIVE AIDE From: VICKEY HOLT DNP, FNP To: [place] Nurse Line; Sent: 12/22/2013 05:33:14 LEGISLATIVE AIDE Subject: RE: diarrhea Addendum by VICKEY HOLT DNP, FNP on 22 December 2013 05:33:06 LEGISLATIVE AIDE I had originally ordered 1000 ER but she told me due to cost the 500 was cheaper, so I ordered the 500 (but this was not ER), I just sent a new script for the 500 ER to take 2 tabs daily, please inform pt. thank you. From: JENA BEYER V ([place] Nurse Line) To: VICKEY HOLT DNP, FNP; Sent: 12/21/2013 12:24:09 LEGISLATIVE AIDE Subject: diarrhea Pt spoke w/ Expert RN [...] her @ above # to discuss Source: [facility] Cono-C Document Id: [id number] Miscellaneous - Vickey Holt, Maritza.N.P., C.N.P. - 12/20/2013 8:26 PM LEGISLATIVE AIDE Normal Results Letter 20 December 2013 MARCIAL BAZAN [address] [place] [id number] Dear MARCIAL BAZAN, I am pleased to report that your Pap results were normal! Your next pap will be due in November or 2016!!! Please follow up with us as we discussed during your visit or sooner if you have any concerns. If you have questions or concerns, please do not hesitate to call our office. Sincerely, VICKEY HOLT [address] [address] Electronic Signature Electronically Signed By: VICKEY HOLT DNP, FNP On: 20 December 2013 This document has images extracted. Source: [facility] [employer] Document Id: [id number] documented in this encounter Plan of Treatment Upcoming Encounters Date Type Specialty Care Team Description 12/26/2021 Office Visit Cardiovascular Disease Maritza Currie M.D. [address] [place] [address] [phone] (Wo rk) 01/16/2022 Appointment Radiology Vignesh Currie M.D. [address] [place] [phone] (Wo rk) 01/16/2022 Appointment Cardiovascular Disease Maritza Currie M.D. [address] [place] [address] [phone] (Wo rk) 01/16/2022 Appointment Radiology Vignesh Currie M.D. [address] [place] [address] [phone] (Wo rk) 01/16/2022 Appointment Cardiovascular Disease Maritza Currie M.D. [address] [place] [address] [phone] (Wo rk) documented as of this encounter Visit Diagnoses Not on filedocumented in this encounter Additional Health Concerns Assessment Noted Time PHQ-9 Depression Total Score: 1 06/01/2013 1:42 PM CDT documented as of this encounter
--- OUTSIDE RECORDS SUMMARY | 2021-12-10 15:08 | XMS_ITS | Encounter Summary ---
:1945 Author Organization [facility] Address [address] [place] [address] Care Team Providers Name Role Phone Unavailable Primary Care Provider Unavailable Encounter Details Date Type Department Care Team Description 12/12/2013 Hospital Encounter HX [facility] [place] Vickey Holt, MAL, C.N.P., D. N.P. [address] [place] [address] (Wo rk) Social History Tobacco [...] H&P Notes Vickey Holt D.N.P., C.N.P. - 12/12/2013 8:13 AM CDT [id number] CHIEF COMPLAINT/REASON FOR VISIT Routine physical examination. HISTORY OF PRESENT ILLNESS Patient is a 68-year-old female that presents to the clinic today for a routine physical examinationand also medication renewal. She does suffer from hyperlipidemia and also type 2 diabetes mellitus in which previously in the past she has utilized a health and development coach that has actually been very beneficial for her helping her lose weight. She indicates that now she is no longer seeing the health and development coach as this is no longer a [...] is appropriate. HEAD: Normocephalic/atraumatic. PUPILS: GENE. OROPHARYNX: [place] and moist. TYMPANIC MEMBRANES: Bilateral TMs are [...] plan. Patient/Child/Caregiver expressed understanding of the content. Maritza Lucas.N.P./F.N.P/gene Electronically Signed By: VICKEY HOLT DNP, FNP On: 12/13/2013 01:12 PM Source: [facility] MHSDOLBEYNONRADSYS Document Id: [id number] documented in this encounter Miscellaneous Notes Miscellaneous [...] She will be notified when complete. Source: [facility] POWERCHART Document Id: [id number] Miscellaneous - Vickye Holt, Maritza.N.P., C.N.P. - 12/12/2013 12:17 PM CDT Ambulatory Patient Summary [address] [id number] Visit Information Name: MARCIAL BAZAN [facility] Number: [id number] Current Date: 12/12/2013 12:17:14 [...] a day for thyroid replacement Routed to [address] [address] metFORMIN (metFORMIN 500 mg oral tablet) 2 Tablet(s), Oral, two times a day with meals This is a CHANGE Routed to [address] [address] simvastatin (simvastatin 10 mg oral tablet) 1 Tablet(s), Oral, once a day (at bedtime) Take for highcholesterol. Routed to [address] [address] Stop Taking the Following Medications: [...] Appointments Date Time Location Provider 03/13/2014 08:45 [facility] Family [facility] Gail Gabriel MD Attention: Contact your local Clinic if further appointment detail needed. Your Goals/Additional instructions: Source: [facility] POWERCHART Document Id: [id number] Miscellaneous - Vickey Holt D.N.P., C.N.P. - 12/12/2013 12:17 PM CDT Ambulatory Discharge Medication List [address] [id number] Visit Information Name: MARCIAL BAZAN [facility] Number: [id number] Visit Date: 12/12/2013 12:17:11 [...] a day for thyroid replacement Routed to [address] [address] metFORMIN (metFORMIN 500 mg oral tablet) 2 Tablet(s), Oral, two times a day with meals This is a CHANGE Routed to [address] [address] simvastatin (simvastatin 10 mg oral tablet) 1 Tablet(s), Oral, once a day (at bedtime) Take for highcholesterol. Routed to [address] [address] Stop Taking the Following Medications: Medication list [...] FNP Signed On:12-DEC-2013 09:26:03 Additional Information: Source[facility] [employer] Document Id: [id number] Miscellaneous - Vickey Holt, Maritza.N.PJairo, C.N.P. - 12/12/2013 9:08 AM CDT Quality [...] DNP, FNP - 12/12/2013 9:08 CDT Source[facility] [employer] Document Id: [id number] CDT!14 Miscellaneous - Sylvia Darnell L.P.N. - [...] DARNELL LPN - 12/12/2013 8:33 CDT Source: [employer] Document Id: [id number] CDT!10 Miscellaneous - Sylvia Darnell L.PSusan - 12/12/2013 8:22 AM CDT Adult Mathematics Improvement Teacher Intake/History Adult Mathematics Improvement Teacher Intake/History Entered On: 12/12/2013 8:25 CDT Performed [...] 41.5 cm(Converted to: 16 inch(es)) SYLVIA DARNELL Justin CUT OFF [employer]ER LOG - 12/12/2013 8:26 CDT Chief Complaint : Pre-op for colonoscopy Height : 158 cm(Converted to: 5 ft 2 inch(es), 62 inch(es)) CHRISTIANA SYLVIA Justin CUT OFF [employer]WYER LOG - 12/12/2013 8:22 CDT General Info Information Given By : Patient Languages : Beninese Is Patient Female and 13-50 no hysterectomy : No SYLVIA DARNELL LPN - 12/12/2013 8:22 CDT Subjective Pain Symptoms : No SYLVIA DARNELL LPN - 12/12/2013 8:22 CDT Dependent Habits Tobacco Use/Currently Using : No Tobacco Use/Last 12 months : No Tobacco Use/Advised to Quit : No Exposure to Tobacco Smoke : Care provider denies smoking in home Smoking Status : Never smoker SYLVIA DARNELL LPN - 12/12/2013 8:22 CDT Tobacco Use Grid Last Use : Never SYLVIA DARNELL LPN 12/12/2013 8:22 CDT Alcohol Use : No SYLVIA DARNELL LPN 12/12/2013 8:22 CDT Caffeine Use Grid Caffeine Use : None Frequency : Occasionally Amount : 1 cup per week SYLVIA DARNELL LPN 12/12/2013 8:22 CDT Recreational Drug Use Grid Drug Use : None SYLVIA DARNELL LPN 12/12/2013 8:22 CDT Source: [facility] Document Id: [id number] CDT!19 documented in this encounter Plan of Treatment Upcoming Encounters Date Type Specialty Care Team Description 12/26/2021 Office Visit Cardiovascular Disease Maritza Currie M.D. [address] [place], [place] [phone] ([place]) 01/16/2022 Appointment Radiology Vignesh Currie M.D. [address] [place], [place] [phone] ([place]) 01/16/2022 Appointment Cardiovascular Disease Maritza Currie M.D. [address] [place], [place] [phone] (Wo rk) 01/16/2022 Appointment Radiology Vignesh Currie M.D. [address] [place], [place] [phone] (Wo rk) 01/16/2022 Appointment Cardiovascular Disease Maritza Currie M.D. [address] [place], [place] [phone] (Wo rk) documented as [...] Screen HPV Reflex (12/12/2013 10:12 AM CDT) [facility] Method Time Signature Interpretation [id number] POWERCHART HXThPrep Scrn See Comment POWERCHART [facility] Comment: A. ??ThinPrep Pap Test Screen (Cervical/ Endocervical HPV Reflex): Satisfactory for evaluation. Negative for intraepithelial lesion or m alignancy. HXThPrep Scrn Cyto-[place] See Comment KAIT RCHART Comment: Report electronically signed by BLANCA Mcgrath (ASCP) 12/20/2013 10:28 Interpreted by: BLANCA Mcgrath (ASCP) HX Spec Desc-[place] See Comment POWERCHART Comment: A. ??ThinPrep Pap Test Screen (Cervical/ Endocervical HPV Reflex): Received cloudy specimen in ThinPrep via l. Test Performed by: [place] [address] Computerized Table Cutter: Ronak Escobar Specimen (Source) Anatomical Collection Method [...] Urine 12/12/2013 9:47 AM CDT Vickey Holt APRN, C.N.P., D.N.P. LAB URINE ORDE RABLES Performing Organization Address City/[facility]/ZIP Code Phon e Number POWERCHART Thyroid-Stimulating Hormone-Sensitive (s-TSH) (12/12/2013 9:14 AM CDT) P athologist Signature TSH 4.35 0.30 - 5.00 POWERCHART (Thyrotropin) MCIUML Specimen (Source) Anatomical Collection Method Collection Time Re ceived Time Location / / Volume Laterality Blood 12/12/2013 9:14 AM CDT Vickey Holt APRN, C.N.P., D.N.P. LAB BLOOD ADD- ON Performing Organization Address City/State/ZIP Code Phon e Number POWERCHART (ABNORMAL) BMP (Basic Metabolic Panel) (12/12/2013 9:14 AM CDT) P athologist Signature Anion Gap 15 10 - [...] POWERCHART MMOLL HXeGFR (MDRD) >60 >=60 POWERCHART [id number] eGFR >60 >=60 POWERCHART Black/ [id number] [place] Specimen (Source) Anatomical Collection Method Collection Time Re ceived Time Location / / Volume Laterality Blood 12/12/2013 9:14 AM CDT Vickey Holt APRN, C.N.P., D.N.P. LAB BLOOD ADD- ON Performing Organization Address City/State/ZIP Code Phon e Number POWERCHART (ABNORMAL) Lipid Panel (12/12/2013 9:14 AM CDT) P athologist Signature Cholesterol, 184 0 - 200 [...]
--- OUTSIDE RECORDS SUMMARY | 2021-12-10 15:08 | XMS_ITS | Encounter Summary ---
:1945 Author Organization [facility] Address [address] [place] [address] Care Team Providers Name Role Phone Unavailable Primary Care Provider Unavailable Encounter Details Date Type Department Care Team Description 02/24/2013 Hospital Encounter [facility] [place] Nicki Anthony, MAL, C.N.P., D. N.P. [address] [place] [address] (Wo rk) Social History [...] mouth daily. Take 0 11/13/2021 with food [email or web address]. documented as of this encounter Progress Notes Conversion, Historical Provider Ser - 02/24/2013 10:26 AM CST [id number] HEALTH & WELLNESS COACHING Referring Physician Maritza Lucas.N.P./F.N.P Patient was seen in [facility] on 02/24/2013 for follow-up wellness coaching visit [...] week and continue to move forward. Annie Millan Electronically Signed By: ANNIE PÉREZ On: 02/25/2013 11:07 AM Source: [facility] MHSDOLBEYNSRINIVASASYS Document Id: [id number] documented in this encounter Plan of Treatment Upcoming Encounters Date Type Specialty Care Team Description 12/26/2021 Office Visit Cardiovascular Disease Maritza Currie M.D. [address] [place] [phone] ([place]) 01/16/2022 Appointment Radiology Vignesh Currie M.D. [address] [place] [phone] ([place]o [place]) 01/16/2022 Appointment Cardiovascular Disease Maritza Currie M.D. [address] [place] [phone] (Wo r[place]) 01/16/2022 Appointment Radiology Vignesh Currie M.D. [address] [place] [phone] ([place]o [place]) 01/16/2022 Appointment Cardiovascular Disease Maritza Currie M.D. [address] [place] [phone] (Wo rk) documented as of this encounter Visit Diagnoses Not on filedocumented in this encounter
--- OUTSIDE RECORDS SUMMARY | 2021-12-10 15:09 | XMS_ITS | Encounter Summary ---
:1945 Author Organization [facility] Address [address] [place] [address] Care Team Providers Name Role Phone Unavailable Primary Care Provider Unavailable Encounter Details Date Type Department Care Team Description 09/02/2012 Hospital Encounter HX [facility] [place] Nicki Anthony, MAL, C.N.P., D. N.P. [address] [place] [address] (Wo rk) Social History Tobacco [...] mouth daily. Take 0 11/13/2021 with food [employer]. documented as of this encounter Progress Notes Conversion, Historical Provider Ser - 09/02/2012 9:15 AM CDT [id number] HEALTH &WELLNESS COACHING Referring Physician: Nicki Anthony. [...] In addition to that she went on [employer] and got a new used treadmill that [...] ANNIE PÉREZ On: 09/03/2012 03:50 PM Source: [facility] MHSDOLBEYNONRADSYS Document Id: [id number] documented in this encounter Miscellaneous Notes Miscellaneous [...] a ua since Nicki's not here? Source: [facility] POWERCHART Document Id: [id number] Electronically signed by Sae, [facility] Toll Settlement Clerk [id number] at 07/16/2016 10:11 AM CDT documented in this encounter Plan of Treatment Upcoming Encounters Date Type Specialty Care Team Description 12/26/2021 Office Visit Cardiovascular Disease Maritza Currie M.D. [address] [place] [phone] ([place]) 01/16/2022 Appointment Radiology Vignesh Currie M.D. [address] [place] [phone] ([place]) 01/16/2022 Appointment Cardiovascular Disease Maritza Currie M.D. [address] [place] [phone] ([place]) 01/16/2022 Appointment Radiology Vignesh Currie M.D. [address] [place] [phone] ([place]) 01/16/2022 Appointment Cardiovascular Disease Maritza Currie M.D. [address] [place] [phone] (Wo r[place]) documented as of this encounter Procedures Procedure Name Priority Date/Time Associated Diagnosis Comme nts BACTERIAL CULTURE, Routine 09/02/2012 12:48 PM Re sults for this AEROBIC, URINE CDT procedure are in the results section. documented in this encounter Results Bacterial Culture, Aerobic, Urine (09/02/2012 12:48 PM CDT) [facility] gist Method Time Signature Bacterial [...]
--- OUTSIDE RECORDS SUMMARY | 2021-12-10 15:09 | XMS_ITS | Encounter Summary ---
:1945 Author Organization [facility] Address [address] [place] [address] Care Team Providers Name Role Phone Unavailable Primary Care Provider Unavailable Encounter Details Date Type Department Care Team Description 08/31/2012 Hospital Encounter HX NO MAPPING Nicki Anthony, MAL, C.N.P., D.N.P. [address] [place], [place] [phone] ([place]) Social History [...] by mouth daily. Take 0 11/13/2021 with [employer]. documented as of this encounter Plan of Treatment Upcoming Encounters Date Type Specialty Care Team Description 12/26/2021 Office Visit Cardiovascular Disease Maritza Currie M.D. [address] [place], [place] [phone] ([place]) 01/16/2022 Appointment Radiology Vignesh Currie M.D. [address] [place], [place] [phone] ([place]) 01/16/2022 Appointment Cardiovascular Disease Maritza Currie M.D. [address] [place], [place] [phone] ([place]) 01/16/2022 Appointment Radiology Vignesh Currie M.D. [address] [place] [phone] ([place]) 01/16/2022 Appointment Cardiovascular Disease Maritza Currie M.D. [address] [place] [phone] ([place]) documented as of this encounter Visit Diagnoses Not on filedocumented in this encounter
--- OUTSIDE RECORDS SUMMARY | 2021-12-10 15:09 | XMS_ITS | Encounter Summary ---
:1945 Author Organization [facility] Address [address] [place] [address] Care Team Providers Name Role Phone Unavailable Primary Care Provider Unavailable Encounter Details Date Type Department Care Team Description 09/14/2012 Hospital Encounter HX [facility] [place] Nicki Holt, MAL, C.N.P., D. N.P. [address] [place] [address] (Wo rk) Social History Tobacco [...] mouth daily. Take 0 11/13/2021 with food [employer]. documented as of this encounter Progress Notes Conversion, Historical Provider Ser - 09/14/2012 9:49 AM CDT [id number] CHIEF COMPLAINT/REASON FOR VISIT Patient was seen [...] successful in getting her new treadmill from [place] and is all set up and prepared [...] ANNIE PÉREZ On: 10/12/2012 02:34 PM Source: [facility] MHSDOLBEYNONRADSYS Document Id: [id number] documented in this encounter Miscellaneous Notes Miscellaneous - Diana Cardoza L.P.N. - 09/16/2012 2:41 PM CDT General Message [...] other suggestions I would call her back. [phone] Source: [facility] POWERCHART Document Id: [id number] documented in this encounter Plan of Treatment Upcoming Encounters Date Type Specialty Care Team Description 12/26/2021 Office Visit Cardiovascular Disease Maritza Currie M.D. [address] [place], [place] [phone] ([place]) 01/16/2022 Appointment Radiology Vignesh Currie M.D. [address] [place] [phone] ([place]) 01/16/2022 Appointment Cardiovascular Disease Maritza Currie M.D. [address] [place] [phone] ([place]) 01/16/2022 Appointment Radiology Vignesh Currie M.D. [address] [place] [phone] ([place]) 01/16/2022 Appointment Cardiovascular Disease Maritza Currie M.D. [address] [place], [place] [phone] (Wo rk) documented as of this encounter Visit Diagnoses Not on filedocumented in this encounter
--- OUTSIDE RECORDS SUMMARY | 2021-12-10 15:09 | XMS_ITS | Encounter Summary ---
:1945 Author Organization [facility] Address [address] [place] [address] Care Team Providers Name Role Phone Unavailable Primary Care Provider Unavailable Encounter Details Date Type Department Care Team Description 08/16/2012 Hospital Encounter HX [facility] [place] Nicki Holt, MAL, C.N.P., D. N.P. [address] [place] [address] (Wo rk) Social History Tobacco [...] Progress Notes Nicki Holt D.N.P., C.N.P. - 08/16/2012 7:21 AM CDT [id number] CHIEF COMPLAINT/REASON FOR VISIT Dysuria. HISTORY OF [...] numbness or tingling and has tried some pharmacy customer care specialist for this with no symptom improvement. CURRENT [...] on scheduling an MRI with contrast through [facility] in [place]. We will contact her regarding these results, though wewill only plan on going forward with this [...] Patient/child/caregiver expressed understanding of the content. Corrine LucasN.PJairo/F.N.P/ Electronically Signed By: NICKI HOLT [facility], SUSTAINABILITY SPECIALIST On: 08/17/2012 08:18 PM Source: [facility] MHSDOLBEYNONRADSYS Document Id: [id number] documented in this encounter Nursing Notes Jie Thomason L.P.N. - 08/16/2012 1:07 PM CDT MRI Per Provider Nicki Holt, MRI with contrast order was faxed to [facility]. Fax # . Electronically Signed By: JIE THOMASON LPN On: 08/16/2012 01:09 PM Source: [facility] POWERCHART Document Id: [id number] documented in this encounter Miscellaneous Notes Miscellaneous - Nicki Holt D.N.P., C.N.P. - 08/16/2012 9:15 AM CDT Ambulatory Patient Summary [id number] [place] [address] Visit Information Name: ARCHIE BAZAN PAU [facility] Number: [id number] Current Date: 08/16/2012 09:15:53 Physicians Attending Provider: NICKI HOLT DNP, FNP [...] [facility] FOLLOW UP [facility] Grief Counsellor 08/26/2012 08:45 [facility] FOLLOW UP [facility] Grief Counsellor 09/02/2012 08:45 [facility] FOLLOW UP [facility] Grief Counsellor 09/09/2012 08:45 [facility] FOLLOW UP [facility] Grief Counsellor 09/16/2012 08:45 [facility] FOLLOW UP [facility] Grief Counsellor Your Goals/Additional instructions: Source: [facility] POWERCHART Document Id: [id number] Miscellaneous - Nicki Holt, Maritza.N.P., C.N.P. - 08/16/2012 9:15 AM CDT Ambulatory Depart Summary [id number] [place] [address] Visit Information Name: ARCHIE BAZAN [facility] Number: [id number] Visit Date: 08/16/2012 09:15:52 Attending Provider: NICKI HOLT DNP, FNP Primary Care Provider: NICKI HOLT DNP, FNP ARCHIE BAZAN PAU has been given the [...] your provider for clarification. Additional Information: Source: [facility] POWERCHART Document Id: [id number] Miscellaneous - Vitaliy Darnell, L.P.N. - 08/16/2012 7:28 AM CDT Adult Campaign Manager Intake/History Adult Campaign Manager Intake/History Entered On: 08/16/2012 7:36 CDT Performed On: 08/16/2012 7:28 CDT by VITALIY DARNELL SETTLEMENT WORKER Intake Chief Complaint : Right shoulder slipped [...] Mass Index : 31.6 kg/m2 VITALIY DARNELL SETTLEMENT WORKER - 08/16/2012 7:28 CDT General Info Information Given By : Patient Languages : Indonesian VITALIY DARNELL [facility] - 08/16/2012 7:28 CDT Subjective Pain Symptoms : No VITALIY DARNELL LPN - 08/16/2012 7:28 CDT Dependent Habits Tobacco Use/Currently Using : No Tobacco Use/Last 12 months : No Tobacco Use/Advised to Quit : No Exposure to Tobacco Smoke : Care provider denies smoking in home Smoking Status : Never smoker VITALIY DARNELL [facility] - 08/16/2012 7:28 CDT Tobacco Use Grid Last Use : Never VITALIY DARNELL LPN - 08/16/2012 7:28 CDT Alcohol Use : No VITALIY DARNELL LPN - 08/16/2012 7:28 CDT Caffeine Use Grid Caffeine Use : Current Type : Tea Frequency : Occasionally VITALIY DARNELL LPN - 08/16/2012 7:28 CDT Recreational Drug Use Grid Drug Use : None VITALIY DARNELL LPN - 08/16/2012 7:28 CDT Source: [employer] POWERCHART Document Id: [id number] CDT!41 documented in this encounter Plan of Treatment Upcoming Encounters Date Type Specialty Care Team Description 12/26/2021 Office Visit Cardiovascular Disease Maritza Currie M.D. [address] [place] [phone] (Wo rk) 01/16/2022 Appointment Radiology Vignesh Currie M.D. [address] [place], [place] [phone] (Wo rk) 01/16/2022 Appointment Cardiovascular Disease Maritza Currie M.D. [address] [place] [phone] (Wo rk) 01/16/2022 Appointment Radiology Vignesh Currie M.D. [address] [place] [phone] (Wo rk) 01/16/2022 Appointment Cardiovascular Disease Maritza Currie M.D. [address] [place] [phone] (Wo rk) documented as of [...] Results Urine Microscopic (08/16/2012 8:20 AM CDT) [facility] Method Time [...] 8:20 AM 3 8:20 CDT AM CDT Nicki Holt APRN, C.N.P., D.N.P. LAB URINE DESI MONGE Performing Organization Address City/State/ZIP Code Phon e Number POWERCHART Urinalysis, Routine (08/16/2012 8:20 AM CDT) [facility] gist Method Time Signature HXUr Color Yellow Yellow POWERCHART Appearance Clear Clear POWERCHART Glucose Negative Negative POWERCHART HXBILIRUBIN Negative Negative POWERCHART Ketones, QL(U) Negative Negative POWERCHART Specific 1.015 1.000 - POWERCHART [place], POCT, U 1.030 pH, POCT, Urine 5.0 5.0 - 8.0 POWERCHART Protein, Ur, Dip Negative Negative POWERCHART Urobilinogen 0.2 POWERCHART HXNITRITE Negative Negative POWERCHART HXBLOOD Trace-lysed POWERCHART Leukocyte 1+ Negative POWERCHART Esterase Source Clean Void POWERCHART Urine Specimen (Source) Anatomical Collection Method Collection Time Re ceived Time Location / / Volume Laterality Urine 08/16/2012 8:20 AM CDT Nicki Holt APRN, C.N.P., D.N.P. LAB URINE DESI MONGE Performing Organization Address City/State/ZIP Code Phon e Number POWERCHART documented in this encounter Visit Diagnoses Not on filedocumented in this encounter
--- OUTSIDE RECORDS SUMMARY | 2021-12-10 15:09 | XMS_ITS | Encounter Summary ---
:1945 Author Organization [facility] Address [address] [place] [address] Care Team Providers Name Role Phone Unavailable Primary Care Provider Unavailable Encounter Details Date Type Department Care Team Description 08/20/2012 Hospital Encounter HX [facility] [place] Nicki Anthony, MAL, C.N.P., D. N.P. [address] [place] [address] (Wo rk) Social History Tobacco [...] mouth daily. Take 0 11/13/2021 with food [employer]. documented as of this encounter Progress Notes Conversion, Historical Provider Ser - 08/20/2012 8:55 AM CDT [id number] HEALTH AND WELLNESS COACHING Patient was seen at [facility] in [place] on 08/20/2012 for follow-up wellness coaching visit [...] patient is extremely excited and motivated. Annie Pérez/[facility] Electronically Signed By: ANNIE PÉREZ On: 08/23/2012 10:34 AM Source: [facility] MHSDOLBEYNONRADSYS Document Id: [id number] documented in this encounter Miscellaneous Notes Miscellaneous - Macy Fraga, RJairoN. - 08/23/2012 10:26 AM CDT Prior Auth- Metformin From: MACY CALDERA RN Sent: 08/23/2012 10:26:09 CDT Subject: Prior Auth- Metformin Prior Auth for Metformin HCL ER 1000mg approved by [employer] 08/16/12- 08/16/13. [place] notified, pt notified. Source: [facility] POWERCHART Document Id: [id number] Electronically signed by Conversion, [facility] Bike Technician [id number] at 07/16/2016 1:01 AM CDT documented in this encounter Plan of Treatment Upcoming Encounters Date Type Specialty Care Team Description 12/26/2021 Office Visit Cardiovascular Disease Maritza Currie M.D. [address] [place] [phone] (Wo rk) 01/16/2022 Appointment Radiology Vignesh Currie M.D. [address] [place] [phone] (Wo rk) 01/16/2022 Appointment Cardiovascular Disease Maritza Currie M.D. [address] [place] [phone] (Wo rk) 01/16/2022 Appointment Radiology Vignesh Currie M.D. [address] [place] [phone] (Wo rk) 01/16/2022 Appointment Cardiovascular Disease Maritza Currie M.D. [address] [place] [phone] (Wo rk) documented as of this encounter Visit Diagnoses Not on filedocumented in this encounter
--- OUTSIDE RECORDS SUMMARY | 2021-12-10 15:09 | XMS_ITS | Encounter Summary ---
:1945 Author Organization [facility] Address [address] [place] [address] Care Team Providers Name Role Phone Unavailable Primary Care Provider Unavailable Encounter Details Date Type Department Care Team Description 08/06/2012 Hospital Encounter HX [facility] [place] Nicki Anthony, MAL, C.N.P., D. N.P. [address] [place] [address] (Wo rk) Social History Tobacco [...] mouth daily. Take 0 11/13/2021 with food [employer]. documented as of this encounter Progress Notes Conversion, Historical Provider Ser - 08/06/2012 9:49 AM CDT [id number] HEALTH AND WELLNESS COACHING The patient was seen at [facility] in [place] for follow-up wellness coaching visit around the [...] moving in the right direction and just needs to get back on track. We discussed what has been her setbacks and what she could do differently. She identified that sweets have been a real obstacle for her in being successful around weight loss and also managing her diabetes. She indicated that once she starts to eat sweets, she feels that she reallygets a taste for them and wants more and more. Her approach to this would be to just eliminate sweets and refined carbohydrates from her diet and using natural foods and natural sweets instead of itemswith a high level of sugar in them. [...] moving forward in her wellness goals. Annie Pérez/[facility] Electronically Signed By: ANNIE PÉREZ On: 08/23/2012 10:34 AM Source: [facility] MHSDOLBEYNONRADSYS Document Id: [id number] documented in this encounter Plan of Treatment Upcoming Encounters Date Type Specialty Care Team Description 12/26/2021 Office Visit Cardiovascular Disease Maritza Currie M.D. [address] [place] [address] [phone] (Wo rk) 01/16/2022 Appointment Radiology Vignesh Currie M.D. [address] [place] [address] [phone] (Wo rk) 01/16/2022 Appointment Cardiovascular Disease Maritza Currie M.D. [address] [place] [address] [phone] (Wo rk) 01/16/2022 Appointment Radiology Vignesh Currie M.D. [address] [place] [address] [phone] (Wo rk) 01/16/2022 Appointment Cardiovascular Disease Maritza Currie M.D. [address] [place] [address] [phone] (Wo rk) documented as of this encounter Visit Diagnoses Not on filedocumented in this encounter
--- OUTSIDE RECORDS SUMMARY | 2021-12-10 15:09 | XMS_ITS | Encounter Summary ---
:1945 Author Organization [facility] Address [address] [place] [address] Care Team Providers Name Role Phone Unavailable Primary Care Provider Unavailable Encounter Details Date Type Department Care Team Description 08/31/2012 Hospital Encounter HX NO MAPPING Nicki Anthony, MAL, C.N.P., D.N.P. [address] [place], [place] [phone] ([place]) Social History [...] by mouth daily. Take 0 11/13/2021 with [employer]. documented as of this encounter Plan of Treatment Upcoming Encounters Date Type Specialty Care Team Description 12/26/2021 Office Visit Cardiovascular Disease Maritza Currie M.D. [address] [place], [place] [phone] ([place]) 01/16/2022 Appointment Radiology Vignesh Currie M.D. [address] [place], [place] 55 [phone] ([place]) 01/16/2022 Appointment Cardiovascular Disease Maritza Currie M.D. [address] [place], [place] [phone] (Wo rk) 01/16/2022 Appointment Radiology Vignesh uCrrie M.D. [address] [place] [address] [phone] (Wo rk) 01/16/2022 Appointment Cardiovascular Disease Maritza Currie M.D. [address] [place] [address] [phone] (Wo rk) documented as of this encounter Visit Diagnoses Not on filedocumented in this encounter
--- OUTSIDE RECORDS SUMMARY | 2021-12-10 15:09 | XMS_ITS | Encounter Summary ---
:1945 Author Organization [facility] Address [address] [place] [address] Care Team Providers Name Role Phone Unavailable Primary Care Provider Unavailable Encounter Details Date Type Department Care Team Description 07/29/2012 Hospital Encounter HX [facility] [place] Nicki Anthony, MAL, C.N.P., D. N.P. [address] [place] [address] (Wo rk) Social History Tobacco [...] mouth daily. Take 0 11/13/2021 with food [employer]. documented as of this encounter Progress Notes Conversion, Historical Provider Ser - 07/29/2012 8:56 AM CDT [id number] HEALTH AND WELLNESS COACHING The patient was seen at [facility] in [place] on 07/29/2012 for follow-up wellness coaching visit [...] to move forward in her goals. Annie P[facility]rez/[facility] Electronically Signed By: ANNIE PÉREZ On: 08/23/2012 10:34 AM Source: [facility] MHSDOLBEYNONRADSYS Document Id: [id number] documented in this encounter Plan of Treatment Upcoming Encounters Date Type Specialty Care Team Description 12/26/2021 Office Visit Cardiovascular Disease Maritza Currie M.D. [address] [place] [address] [phone] (Wo rk) 01/16/2022 Appointment Radiology Vignesh Currie M.D. [address] [place] [address] [phone] (Wo rk) 01/16/2022 Appointment Cardiovascular Disease Maritza Currie M.D. [address] [place] [address] [phone] (Wo rk) 01/16/2022 Appointment Radiology Vignesh Currie M.D. [address] [place] [address] [phone] (Wo rk) 01/16/2022 Appointment Cardiovascular Disease Maritza Currie M.D. [address] [place] [address] [phone] (Jean rk) documented as of this encounter Visit Diagnoses Not on filedocumented in this encounter
--- OUTSIDE RECORDS SUMMARY | 2021-12-10 15:09 | XMS_ITS | Encounter Summary ---
:1945 Author Organization [facility] Address [address] [place] [address] Care Team Providers Name Role Phone Unavailable Primary Care Provider Unavailable Encounter Details Date Type Department Care Team Description 08/31/2012 Hospital Encounter HX [facility] Jackson Mathis M. D. Social History Tobacco [...] daily. Take 0 11/13/2021 with food for [employer]. documented as of this encounter Progress Notes Conversion, Historical Provider Ser - 08/31/2012 9:30 AM CDT [id number] Quick Note: Note: These results were ordered by a Referring Physician and have not been reviewed by a physician at [facility] in [place]. FAXED TO VICKEY HOLT [place] ON 09/02/2012. Source: [facility] Document Id: [id number] documented in this encounter Plan of Treatment Upcoming Encounters Date Type Specialty Care Team Description 12/26/2021 Office Visit Cardiovascular Disease Maritza Currie M.D. [address] [place], [place] [phone] (Wo rk) 01/16/2022 Appointment Radiology Vignesh Currie M.D. [address] [place] [address] [phone] (Wo rk) 01/16/2022 Appointment Cardiovascular Disease Marizta Currie M.D. [address] [place] [address] [phone] (Wo rk) 01/16/2022 Appointment Radiology Vignesh Currie M.D. [address] [place] [address] [phone] (Wo rk) 01/16/2022 Appointment Cardiovascular Disease Maritza Currie M.D. [address] [place] [address] [phone] (Wo rk) documented as of this encounter Visit Diagnoses Not on filedocumented in this encounter
--- OUTSIDE RECORDS SUMMARY | 2021-12-10 15:09 | XMS_ITS | Encounter Summary ---
:1945 Author Organization [facility] Address [address] [place] [address] Care Team Providers Name Role Phone Unavailable Primary Care Provider Unavailable Encounter Details Date Type Department Care Team Description 08/26/2012 Hospital Encounter HX [facility] [place] Nicki Anthony, MAL, C.N.P., D. N.P. [address] [place] [address] (Wo rk) Social History Tobacco [...] mouth daily. Take 0 11/13/2021 with food [employer]. documented as of this encounter Progress Notes Conversion, Historical Provider Ser - 08/26/2012 8:59 AM CDT [id number] HEALTH & WELLNESS COACHING Referring Physician: Nicki Anthony. CHIEF COMPLAINT/REASON FOR VISIT Follow-up wellness coaching visit around the area of Diabetes and weight loss. SESSION OVERVIEW Patient reviews having a good of August weekend. Did lots of walking and really ate [...] ANNIE PÉREZ On: 08/27/2012 04:00 PM Source: [facility] MHSDOLBEYNONRADSYS Document Id: [id number] documented in this encounter Plan of Treatment Upcoming Encounters Date Type Specialty Care Team Description 12/26/2021 Office Visit Cardiovascular Disease Maritza Currie M.D. [address] [place] [address] [phone] (Wo rk) 01/16/2022 Appointment Radiology Vignesh Currie M.D. [address] [place] [address] [phone] (Wo rk) 01/16/2022 Appointment Cardiovascular Disease Maritza Currie M.D. [address] [place] [address] [phone] (Wo rk) 01/16/2022 Appointment Radiology Vignesh Currie M.D. [address] [place] [address] [phone] (Wo rk) 01/16/2022 Appointment Cardiovascular Disease Maritza Currie M.D. [address] [place] [address] [phone] (Jean rk) documented as of this encounter Visit Diagnoses Not on filedocumented in this encounter
--- OUTSIDE RECORDS SUMMARY | 2021-12-10 15:09 | XMS_ITS | Encounter Summary ---
:1945 Author Organization [facility] Address [address] [place] [address] Care Team Providers Name Role Phone Unavailable Primary Care Provider Unavailable Encounter Details Date Type Department Care Team Description 09/23/2012 Hospital Encounter HX [facility] [place] Nicki Anthony, MAL, C.N.P., D. N.P. [address] [place] [address] (Wo rk) Social History Tobacco [...] mouth daily. Take 0 11/13/2021 with food [employer]. documented as of this encounter Progress Notes Conversion, Historical Provider Ser - 09/23/2012 8:47 AM CDT [id number] HEALTH & WELLNESS COACHING Patient was seen [...] ANNIE PÉREZ On: 10/12/2012 02:34 PM Source: [facility] MHSDOLBEYNONRADSYS Document Id: [id number] documented in this encounter Plan of Treatment Upcoming Encounters Date Type Specialty Care Team Description 12/26/2021 Office Visit Cardiovascular Disease Maritza Currie M.D. [address] [place] [address] [phone] ([place]) 01/16/2022 Appointment Radiology Vignesh Currie M.D. [address] [place] [address] [phone] ([place]) 01/16/2022 Appointment Cardiovascular Disease Maritza Currie M.D. [address] [place] [address] [phone] (Wo rk) 01/16/2022 Appointment Radiology Vignesh Currie M.D. [address] [place], [place] [address] [phone] (Wo rk) 01/16/2022 Appointment Cardiovascular Disease Maritza Currie M.D. [address] [place], [place] [phone] (Jean rk) documented as of this encounter Visit Diagnoses Not on filedocumented in this encounter
--- OUTSIDE RECORDS SUMMARY | 2021-12-10 15:09 | XMS_ITS | Encounter Summary ---
:1945 Author Organization [facility] Address [address] [place] [address] Care Team Providers Name Role Phone Unavailable Primary Care Provider Unavailable Encounter Details Date Type Department Care Team Description 08/12/2012 Hospital Encounter HX [facility] [place] Nicki Anthony, MAL, C.N.P., D. N.P. [address] [place] [address] (Wo rk) Social History Tobacco [...] mouth daily. Take 0 11/13/2021 with food Michael [employer]. documented as of this encounter Progress Notes Conversion, Historical Provider Ser - 08/12/2012 8:56 AM CDT [id number] HEALTH AND WELLNESS COACHING The patient was seen at [facility] in [place] on 08/12/2012 for a follow-up wellness coaching [...] rotator cuff. She has reached out to [facility] for a massage on her shoulder [...] weekly for 30 minutes visits ongoing. [facility] Electron[facility] Signed By: ANNIE PÉREZ On: 08/23/2012 10:34 AM Source: [facility] MHSDOLBEYNONRADSYS Document Id: [id number] documented in this encounter Plan of Treatment Upcoming Encounters Date Type Specialty Care Team Description 12/26/2021 Office Visit Cardiovascular Disease Maritza Currie M.D. [address] [place], [place] [phone] (Wo rk) 01/16/2022 Appointment Radiology Vignesh Currie M.D. [address] [place] [address] [phone] (Wo rk) 01/16/2022 Appointment Cardiovascular Disease Maritza Currie M.D. [address] [place] [address] [phone] (Wo rk) 01/16/2022 Appointment Radiology Vignesh Currie M.D. [address] [place] [address] [phone] (Wo rk) 01/16/2022 Appointment Cardiovascular Disease Maritza Currie M.D. [address] [place] [address] [phone] (Wo rk) documented as of this encounter Visit Diagnoses Not on filedocumented in this encounter
--- OUTSIDE RECORDS SUMMARY | 2021-12-10 15:09 | XMS_ITS | Encounter Summary ---
:1945 Author Organization [facility] Address [address] [place] [address] Care Team Providers Name Role Phone Unavailable Primary Care Provider Unavailable Encounter Details Date Type Department Care Team Description 09/14/2012 Hospital Encounter HX [facility] Nicki Holt, MAL, C.N.P., D.N.P. [address] [place], [place] [phone] (Wo rk) Social History [...] by mouth daily. Take 0 11/13/2021 with [employer]. documented as of this encounter Miscellaneous Notes Miscellaneous - Nicki Holt, Maritza.N.P., C.N.P. - 09/14/2012 7:51 PM CDT Normal Results Letter 14 September 2012 ARCHIE BAZAN [address] [place] [address] [id number] Dear Archie GUNDERSON, Your urine test did [...] 4.00 - 6.00 Sincerely, NICKI HOLT [address] [place] [address] Electronic Signature Electronically Signed By: NICKI HOLT DNP, FNP On: 14 September 2012 This document has images extracted. Source: [facility] POWERCHART Document Id: [id number] Electronically signed by Conversion, [facility] Manager [place] [id number] at 07/16/2016 10:11 AM CDT documented in this encounter Plan of Treatment Upcoming Encounters Date Type Specialty Care Team Description 12/26/2021 Office Visit Cardiovascular Disease Maritza Currie M.D. [address] [place] [address] [phone] (Wo rk) 01/16/2022 Appointment Radiology Vignesh Currie M.D. [address] [place] [address] [phone] (Wo rk) 01/16/2022 Appointment Cardiovascular Disease Maritza Currie M.D. [address] [place] [address] [phone] (Wo rk) 01/16/2022 Appointment Radiology Vignesh Currie M.D. [address] [place] [address] [phone] (Wo rk) 01/16/2022 Appointment Cardiovascular Disease Maritza Currie M.D. [address] [place] [address] [phone] (Wo rk) documented as of [...] Results Urine Microscopic (09/14/2012 9:48 AM CDT) P athologist Signature HXUr WBC 1-3 POWERCHART Red [...] 3 9:48 CDT AM CDT Nicki Holt APRN, C.N.P., D.N.P. LAB URINE ORDE RABLES Performing Organization Address City/State/ZIP Code Phon e Number POWERCHART Urinalysis, Routine (09/14/2012 9:48 AM CDT) Patholo gist Method Time Signature HXUr Color Yellow Yellow POWERCHART Appearance Clear Clear POWERCHART Glucose Negative Negative POWERCHART HXBILIRUBIN Negative Negative POWERCHART Ketones, QL(U) Negative Negative POWERCHART Specific 1.020 1.000 - POWERCHART [place], POCT, U 1.030 pH, POCT, Urine 5.5 [...] (09/14/2012 9:42 AM CDT) Analysis Performed At Patho logist Time Signature Hemoglobin A1c, 6.87 (H) 4.00 [...]
--- OUTSIDE RECORDS SUMMARY | 2021-12-10 15:09 | XMS_ITS | Encounter Summary ---
:1945 Author Organization [facility] Address [address] [place] [address] Care Team Providers Name Role Phone Unavailable Primary Care Provider Unavailable Encounter Details Date Type Department Care Team Description 07/15/2012 Hospital Encounter HX [facility] [place] Nicki Anthony, MAL, C.N.P., D. N.P. [address] [place] [address] (Wo rk) Social History Tobacco [...] mouth daily. Take 0 11/13/2021 with food [employer]. documented as of this encounter Progress Notes Conversion, Historical Provider Ser - 07/15/2012 8:44 AM CDT [id number] HEALTH AND WELLNESS COACHING Patient was seen in [facility] in [place] on 07/15/2012 for wellness coaching follow-up visit [...] moving forward towards her wellness goals. Annie Pérez/[facility] Electronically Signed By: ANNIE PÉREZ On: 08/23/2012 10:34 AM Source: [facility] MHSDOLBEYNONRADSYS Document Id: [id number] documented in this encounter Plan of Treatment Upcoming Encounters Date Type Specialty Care Team Description 12/26/2021 Office Visit Cardiovascular Disease Maritza Currie M.D. [address] [place] [address] [phone] (Wo rk) 01/16/2022 Appointment Radiology Vignesh Currie M.D. [address] [place] [address] [phone] (Wo rk) 01/16/2022 Appointment Cardiovascular Disease Maritza Currie M.D. [address] [place] [address] [phone] (Wo rk) 01/16/2022 Appointment Radiology Vignesh Currie M.D. [address] [place] [address] [phone] (Wo rk) 01/16/2022 Appointment Cardiovascular Disease Maritza Currie M.D. [address] [place] [address] [phone] (Wo rk) documented as of this encounter Visit Diagnoses Not on filedocumented in this encounter
--- OUTSIDE RECORDS SUMMARY | 2021-12-10 15:09 | XMS_ITS | Encounter Summary ---
:1945 Author Organization [facility] Address [address] [place] [address] Care Team Providers Name Role Phone Unavailable Primary Care Provider Unavailable Encounter Details Date Type Department Care Team Description 09/02/2012 Hospital Encounter HX [facility] Nicki Anthony, MAL, C.N.P., D.N.P. [address] [place], [place] [phone] ([place]) Social History [...] mouth daily. Take 0 11/13/2021 with food [employer]. documented as of this encounter Plan of Treatment Upcoming Encounters Date Type Specialty Care Team Description 12/26/2021 Office Visit Cardiovascular Disease Maritza Currie M.D. [address] [place], [place] [phone] ([place]) 01/16/2022 Appointment Radiology Vignesh Currie M.D. [address] [place], [place] [phone] ([place]) 01/16/2022 Appointment Cardiovascular Disease Maritza Currie M.D. [address] [place], [place] [phone] (Wo rk) 01/16/2022 Appointment Radiology Vignesh Currie M.D. [address] [place], [place] [phone] (Wo rk) 01/16/2022 Appointment Cardiovascular Disease Maritza Currie M.D. [address] [place], [place] [phone] (Wo rk) documented as [...] Results Urine Microscopic (09/02/2012 9:53 AM CDT) [facility] CloudOn Method Time Signature HXUr WBC 5-10 0 [...] N.P. LAB URINE ORDERABLES Performing Organization Address City/State/ZIP Code Phon e Number POWERCHART Urinalysis, Routine (09/02/2012 9:53 AM CDT) [facility] CloudOn Method Time Signature HXUr Color Yellow Yellow POWERCHART Appearance Clear Clear POWERCHART Glucose Negative Negative POWERCHART HXBILIRUBIN Negative Negative POWERCHART Ketones, QL(U) Negative Negative POWERCHART Specific 1.020 1.000 - POWERCHART [place], POCT, U 1.030 pH, POCT, Urine 5.5 [...] N.P. LAB URINE ORDERABLES Performing Organization Address City/State/ZIP Code Phon e Number POWERCHART documented in this encounter Visit Diagnoses Not on filedocumented in this encounter
--- OUTSIDE RECORDS SUMMARY | 2021-12-10 15:09 | XMS_ITS | Encounter Summary ---
:1945 Author Organization [facility] Address [address] [place] [address] Care Team Providers Name Role Phone Unavailable Primary Care Provider Unavailable Encounter Details Date Type Department Care Team Description 09/04/2012 Hospital Encounter HX [facility] [place] Gail Garrison M.D. [address] [phone] (Wo rk) Social History Tobacco [...] Cortez M.D. - 09/04/2012 10:04 AM CDT [id number] CHIEF COMPLAINT/REASON FOR VISIT Question sinus infection. [...] VILLAR MD On: 09/14/2012 09:09 AM Source: [facility] MHSDOLBEYNONRADSYS Document Id: [id number] documented in this encounter Miscellaneous Notes Miscellaneous [...] like to go see Dr Velasco in [place]. She heard is really good. Archie is gone on vacation 09/07/12-. Will set up her appointmentfor the and will leave information on answering machin per her request. Source: [facility] POWERCHART Document Id: [id number] Electronically signed by Sae [facility] [employer] [id number] at 07/16/2016 10:11 AM CDT Miscellaneous - Gail Cortez M.D. - 09/04/2012 10:57 AM CDT Ambulatory Patient Summary [address] [place] [address] Visit Information Name: ARCHIE BAZAN [facility] Number: [id number] Current Date: 09/04/2012 10:57:39 Physicians [...] Date Time Location Reason Provider 09/16/2012 08:45 [facility] FOLLOW UP [facility] 09/23/2012 08:45 [facility] LIFESTYLE [facility] 09/30/2012 09:45 [facility] 10/07/2012 09:45 [facility] 10/14/2012 09:45 [facility]IF[facility] Your Goals/Additional instructions: Source: [facility] POWERCHART Document Id: [id number] Miscellaneous - Gail Cortez M.D. - 09/04/2012 10:57 AM CDT Ambulatory Depart Summary [address] [place] [address] Visit Information Name: ARCHIE BAZAN [facility] Number: [id number] Visit Date: 09/04/2012 10:57:38 Attending Provider: GAIL VILLAR MD Primary Care Provider: VICKEY HOLT DNP, SDV PILOT/NAVIGATOR/DDS OPERATOR ARCHIE BAZAN has been given the following [...] your provider for clarification. Additional Information: Source: [facility] POWERCHART Document Id: [id number] Miscellaneous - Vitaliy Darnell L.P.N. - 09/04/2012 10:15 AM CDT Adult Chemical Production Engineer Intake/History Adult Chemical Production Engineer Intake/History Entered On: 09/04/2012 10:20 CDT Performed [...] Given By : Patient Languages : Uruguayan VITALIY DARNELL LPN - 09/04/2012 10:15 CDT [...] Current Type : Tea Frequency : Occasionally DARNELL, HETALEJANDRO Anderson LPN - 09/04/2012 10:15 CDT Recreational Drug Use Grid Drug Use : None CHRISTIANA VITALIY Anderson LPN - 09/04/2012 10:15 CDT Source: [facility] One[employer] Document Id: [id number]!38 documented in this encounter Plan of Treatment Upcoming Encounters Date Type Specialty Care Team Description 12/26/2021 Office Visit Cardiovascular Disease Maritza Currie M.D. [address] [place] [phone] (Wo rk) 01/16/2022 Appointment Radiology Vignesh Currie M.D. [address] [place] [address] [phone] (Wo rk) 01/16/2022 Appointment Cardiovascular Disease Maritza Currie M.D. [address] [place] [address] [phone] (Wo rk) 01/16/2022 Appointment Radiology Vignesh Currie M.D. [address] [place] [address] [phone] (Wo rk) 01/16/2022 Appointment Cardiovascular Disease Maritza Currie M.D. [address] [place] [address] [phone] (Wo rk) documented as of this encounter Visit Diagnoses Not on filedocumented in this encounter
--- OUTSIDE RECORDS SUMMARY | 2021-12-10 15:09 | XMS_ITS | Encounter Summary ---
:1945 Author Organization [facility] Address [address] [place] [address] Care Team Providers Name Role Phone Unavailable Primary Care Provider Unavailable Encounter Details Date Type Department Care Team Description 08/17/2012 Hospital Encounter HX [facility] XRAY Provider, Histori joao Social History [...] daily. Take 0 11/13/2021 with food for [employer]. documented as of this encounter Plan of Treatment Upcoming Encounters Date Type Specialty Care Team Description 12/26/2021 Office Visit Cardiovascular Disease Maritza Currie M.D. [address] [place], [place] [phone] ([place]) 01/16/2022 Appointment Radiology Vigensh Currie M.D. [address] [place] [phone] ([place]) 01/16/2022 Appointment Cardiovascular Disease Maritza Currie M.D. [address] [place], [place] [phone] ([place]) 01/16/2022 Appointment Radiology Vignesh Currie M.D. [address] [place], [place] [phone] ([place]) 01/16/2022 Appointment Cardiovascular Disease Maritza Currie M.D. [address] [place], [place] [phone] ([place]) documented as of this encounter Visit Diagnoses Not on filedocumented in this encounter
--- OUTSIDE RECORDS SUMMARY | 2021-12-10 15:10 | XMS_ITS | Encounter Summary ---
:1945 Author Organization [facility] Address [address] [place] [address] Care Team Providers Name Role Phone Unavailable Primary Care Provider Unavailable Encounter Details Date Type Department Care Team Description 06/10/[address] [facility] Nicki Anthony, MAL, C.N.P., D. N.P. [address] [place] [address] (Wo rk) Social History Tobacco [...] mouth daily. Take 0 11/13/2021 with food [employer]. documented as of this encounter Progress Notes Conversion, Historical Provider Ser - 06/10/2012 9:52 AM CDT [id number] HEALTH & WELLNESS COACHING CHIEF COMPLAINT/REASON FOR VISIT The patient was seen at [facility] in [place] on 06/10/2012 for a follow-up wellness coaching [...] ANNIE PÉREZ On: 06/14/2012 11:52 AM Source: [facility] MHSDOLBEYNONRADSYS Document Id: [id number] documented in this encounter Plan of Treatment Upcoming Encounters Date Type Specialty Care Team Description 12/26/2021 Office Visit Cardiovascular Disease Maritza Currie M.D. 200 [place], [place] [phone] (Wo rk) 01/16/2022 Appointment Radiology Vignesh Currie M.D. [address] [place] [address] [phone] (Wo rk) 01/16/2022 Appointment Cardiovascular Disease Maritza Currie M.D. [address] [place] [address] [phone] (Wo rk) 01/16/2022 Appointment Radiology Vignesh Currie M.D. [address] [place] [address] [phone] (Wo rk) 01/16/2022 Appointment Cardiovascular Disease Maritza Currie M.D. [address] [place] [address] [phone] (Wo rk) documented as of this encounter Visit Diagnoses Not on filedocumented in this encounter
--- OUTSIDE RECORDS SUMMARY | 2021-12-10 15:10 | XMS_ITS | Encounter Summary ---
:1945 Author Organization [facility] Address [address] [place] [address] Care Team Providers Name Role Phone Unavailable Primary Care Provider Unavailable Encounter Details Date Type Department Care Team Description 06/25/2011 Hospital Encounter HX NO MAPPING Dandy Mccarthy P.T. [address] [place], [place] [phone] Social History Tobacco Use [...] encounter Progress Notes Adriane Mccarthy P.T. - 06/25/2011 12:00 AM CDT [id number] Message left on pt's voice confirmed voice mail with PT contact information. Source: [facility] RWHXTRANSXRTFSYS Document Id: [id number] documented in this encounter Plan of Treatment Upcoming Encounters Date Type Specialty Care Team Description 12/26/2021 Office Visit Cardiovascular Disease Maritza Currie M.D. [address] [place] [phone] (Wo rk) 01/16/2022 Appointment Radiology Vignesh Currie M.D. [address] [place] [phone] (Wo rk) 01/16/2022 Appointment Cardiovascular Disease Maritza Currie M.D. [address] [place], [place] [phone] (Wo rk) 01/16/2022 Appointment Radiology Vignesh Currie M.D. [address] [place] [phone] (Wo rk) 01/16/2022 Appointment Cardiovascular Disease Maritza Currie M.D. [address] [place], [place] [phone] (Wo rk) documented as of this encounter Visit Diagnoses Not on filedocumented in this encounter
--- OUTSIDE RECORDS SUMMARY | 2021-12-10 15:10 | XMS_ITS | Encounter Summary ---
:1945 Author Organization [facility] Address [address] [place] [address] Care Team Providers Name Role Phone Unavailable Primary Care Provider Unavailable Encounter Details Date Type Department Care Team Description 04/30/2012 Hospital Encounter HX [facility] [place] Nicki Anthony, MAL, C.N.P., D. N.P. [address] [place] [address] (Wo rk) Social History Tobacco [...] by mouth daily. Take 0 11/13/2021 with [employer]. documented as of this encounter Progress Notes Conversion, Historical Provider Ser - 04/30/2012 10:52 AM CDT [id number] HEALTH & WELLNESS COACHING REFERRING PHYSICIAN Maritza Lucas.N.P./F.N.P. CHIEF COMPLAINT/REASON FOR VISIT Patient is seen [...] ANNIE PÉREZ On: 06/14/2012 11:54 AM Source[facility] Document Id: [id number] documented in this encounter Plan of Treatment Upcoming Encounters Date Type Specialty Care Team Description 12/26/2021 Office Visit Cardiovascular Disease Maritza Currie M.D. [address] [place] [phone] (Wo rk) 01/16/2022 Appointment Radiology Vignesh Currie M.D. [address] [place] [phone] (Wo rk) 01/16/2022 Appointment Cardiovascular Disease Maritza Currie M.D. [address] [place] [address] [phone] (Wo rk) 01/16/2022 Appointment Radiology Vignesh Currie M.D. [address] [place] [address] [phone] (Wo rk) 01/16/2022 Appointment Cardiovascular Disease Maritza Currie M.D. [address] [place] [phone] (Wo rk) documented as of this encounter Visit Diagnoses Not on filedocumented in this encounter
--- OUTSIDE RECORDS SUMMARY | 2021-12-10 15:10 | XMS_ITS | Encounter Summary ---
:1945 Author Organization [facility] Address [address] [place] [address] Care Team Providers Name Role Phone Unavailable Primary Care Provider Unavailable Encounter Details Date Type Department Care Team Description 04/28/2011 Hospital Encounter HX [facility] [place] Vickey Holt, MAL, C.N.P., D. N.P. [address] [place] [address] (Wo rk) Social History Tobacco [...] in this encounter Progress Notes Vickey Holt, Maritza.N.P., C.N.P. - 04/28/2011 12:00 AM CDT Addendum [...] general anesthesia. Information sent to Daniela Yates, certified legal secretary specialist to Dr. Carl Correa at [facility] Department of Urology. CHIEF COMPLAINT [...] x 3. HEAD: Normocephalic/atraumatic. PUPILS: GENE. OROPHARYNX: [place] and moist. TMs: Bilateral TMs are clear, [...] given information regarding renal calculi from the [facility] site. We will plan on [...] DNP, FNP On: 05/05/2011 06:36 PM Source[facility] Document Id: [id number] CHIEF COMPLAINT 1) Followup ER visit. 2) [...] x 3. HEAD: Normocephalic/atraumatic. PUPILS: GENE. OROPHARYNX: [place] and moist. TMs: Bilateral TMs are clear, [...] given information regarding renal calculi from the [facility] Education site. We will plan on [...] DNP, FNP On: 04/29/2011 11:21 AM Source: [facility] MHSDOLBEYNONRADSYS Document Id: [id number] documented in this encounter Nursing Notes Conversion, Historical Provider Ser - 04/29/2011 3:54 PM CDT Referrals 1. Referral to Urology @ [facility]. Urology Dept will triage and let pt know appt time & place. 2. Referral to Dr. Colon - CHANNEL MARKETING COORDINATOR - @ [facility]. Appt scheduled for 05-07-11 @ 0830 - report time (appt@ 0845). Pt informed of date, time & place of appt. Electronically Signed By: DIANNE AMADOR LPN On: 05/01/2011 04:03 PM Source: [facility] P[employer]PostBeyond Document Id: [id number] documented in this encounter Miscellaneous Notes Miscellaneous - Vickey Holt D.N.P., C.N.P. - 04/28/2011 8:33 AM CDT Ambulatory Patient Summary [id number] [place] [address] Visit Information Name: MARCIAL BAZAN Current Date: [...] No Appointments found Your Goals/Additional instructions: Source: [facility] POWERCHART Document Id: [id number] Miscellaneous - Vickey Holt D.N.P., C.N.P. - 04/28/2011 8:33 AM CDT Ambulatory Depart Summary [address] [address] Visit Information Name: MARCIAL BAZAN Visit Date: 04/28/2011 08:33:21 Attending Provider: VICKEY HOLT DNP, FNP Primary Care Provider: VICKEY HOTL DNP, FNP MARCIAL BAZAN has been given [...] clarification. Additional Information: Yes - . Source: [facility] POWERCHART Document Id: [id number] Miscellaneous - Sylvia Darnell L.P.N. - 04/28/2011 7:57 AM CDT Adult B2B Sales Consultant Intake/History Document Has Been Updated Adult B2B Sales Consultant Intake/History Entered On: 04/28/2011 8:01 CDT Performed [...] LPN; Reviewed Date: 04/28/2011 7:57 CDT Source: [facility] [employer] (EBTH)CHART Document Id: [id number]!3 documented in this encounter Plan of Treatment Upcoming Encounters Date Type Specialty Care Team Description 12/26/2021 Office Visit Cardiovascular Disease Maritza Currie M.D. [address] [place] [phone] (Wo rk) 01/16/2022 Appointment Radiology Vignesh Currie M.D. [address] [place] [phone] (Wo rk) 01/16/2022 Appointment Cardiovascular Disease Maritza Currie M.D. [address] [place] [address] [phone] (Wo rk) 01/16/2022 Appointment Radiology Vignesh Currie M.D. [address] [place] [address] [phone] (Wo rk) 01/16/2022 Appointment Cardiovascular Disease Maritza Currie M.D. [address] [place] [phone] (Wo rk) documented as of this encounter Visit Diagnoses Not on filedocumented in this encounter
--- OUTSIDE RECORDS SUMMARY | 2021-12-10 15:10 | XMS_ITS | Encounter Summary ---
:1945 Author Organization [facility] Address [address] [place] [address] Care Team Providers Name Role Phone Unavailable Primary Care Provider Unavailable Encounter Details Date Type Department Care Team Description 06/25/2012 Hospital Encounter HX [facility] [place] Nicki Anthony, MAL, C.N.P., D. N.P. [address] [place] [address] (Wo rk) Social History Tobacco [...] mouth daily. Take 0 11/13/2021 with food [employer]. documented as of this encounter Progress Notes Conversion, Historical Provider Ser - 06/25/2012 3:44 PM CDT [id number] HEALTH AND WELLNESS COACHING Patient was seen at [facility] in [place] June 25, 2012, for a follow-up wellnesscoaching [...] week for her diabetes wellness plan. Annie Pérez/[facility] Electronically Signed By: ANNIE PÉREZ On: 07/15/2012 12:02 PM Source: [facility] MHSDOLBEYNONRADSYS Document Id: [id number] documented in this encounter Plan of Treatment Upcoming Encounters Date Type Specialty Care Team Description 12/26/2021 Office Visit Cardiovascular Disease Maritza Currie M.D. [address] [place] [phone] (Wo rk) 01/16/2022 Appointment Radiology Vignesh Currie M.D. [address] [place] [address] 55 [phone] (Wo rk) 01/16/2022 Appointment Cardiovascular Disease Maritza Currie M.D. [address] [place] [phone] (Wo rk) 01/16/2022 Appointment Radiology Vignesh Currie M.D. [address] [place] [address] 55 [phone] (Wo rk) 01/16/2022 Appointment Cardiovascular Disease Maritza Currie M.D. [address] [place] [address] 55 [phone] (Jean rk) documented as of this encounter Visit Diagnoses Not on filedocumented in this encounter
--- OUTSIDE RECORDS SUMMARY | 2021-12-10 15:10 | XMS_ITS | Encounter Summary ---
:[address] [facility] Address [address] [place] [address] Care Team Providers Name Role Phone Unavailable Primary Care Provider Unavailable Encounter Details Date Type Department Care Team Description 05/28/2011 Hospital Encounter HX NO MAPPING Dandy Mccarthy PKarthik [address] [place], [place] [address] Social History Tobacco Use [...] Visit Cardiovascular Disease Maritza Currie M.D. 200 [place], [place] [phone] ([place]) 01/16/2022 Appointment Radiology Vignesh Currie M.D. [address] [place] [phone] ([place]) 01/16/2022 Appointment Cardiovascular Disease Maritza Currie M.D. [address] [place] [phone] ([place]) 01/16/2022 Appointment Radiology Vignesh Currie M.D. [address] [place] [phone] (Wo rk) 01/16/2022 Appointment Cardiovascular Disease Maritza Currie M.D. [address] [place], [place] [phone] (Wo rk) documented as of this encounter Visit Diagnoses Not on filedocumented in this encounter
--- OUTSIDE RECORDS SUMMARY | 2021-12-10 15:10 | XMS_ITS | Encounter Summary ---
:1945 Author Organization [facility] Address [address] [place] [address] Care Team Providers Name Role Phone Unavailable [...] Visit Cardiovascular Disease Maritza Currie M.D. [address] [place] [phone] ([place]) 01/16/2022 Appointment Radiology Vignesh Currie M.D. [address] [place] [address] [phone] ([place]) 01/16/2022 Appointment Cardiovascular Disease Maritza Currie M.D. [address] [place] [address] 55 [phone] ([place]) 01/16/2022 Appointment Radiology Vignesh Currie M.D. [address] [place] [address] 55 [phone] ([place]) 01/16/2022 Appointment Cardiovascular Disease Maritza Currie M.D. [address] [place] [address] [phone] (Wo rk) documented as of this encounter Visit Diagnoses Not on filedocumented in this encounter
--- OUTSIDE RECORDS SUMMARY | 2021-12-10 15:10 | XMS_ITS | Encounter Summary ---
:1945 Author Organization [facility] Address [address] [place] [address] Care Team Providers Name Role Phone Unavailable Primary Care Provider Unavailable Encounter Details Date Type Department Care Team Description 04/15/[address] [facility] Nicki Anthony, MAL, C.N.P., D. N.P. [address] [place] [address] (Wo rk) Social History Tobacco [...] mouth daily. Take 0 11/13/2021 with food [employer]. documented as of this encounter Progress Notes Conversion, Historical Provider Ser - 04/15/2012 8:44 AM CST [id number] HEALTH AND WELLNESS COACHING Followup visit: The [...] that it can. 2. Go to the [employer] to do her treadmill or walk indoors again. For the treadmill, her goal is todo one mile 3 times a week and if she cannot do that to walk 15 minutes every day indoors or outdoors if the weather permits. She is currently in action stage and is very motivated. Annie Almonte DOCID: [id number] Electronically Signed By: SE ABEBA GALAN, INBOX [email or web address] On: 07/05/2014 02:04 PM Source: [facility] CLIFF Document Id: [id number] Addendum by SE ABEBA GALAN, INBOX [email or web address] on 05 Jul 2014 14:04 CDT [facility] administratively closed. Provider on longer with facility. Report filed unsigned. Modified by and Electronically Signed by: SE ABEBA GALAN, INBOX [email or web address] On: 07/05/2014 02:04 PM Source: [facility] POWERCHART Document Id: [id number] documented in this encounter Plan of Treatment Upcoming Encounters Date Type Specialty Care Team Description 12/26/2021 Office Visit Cardiovascular Disease Maritza Currie M.D. [address] [place] [phone] (Wo rk) 01/16/2022 Appointment Radiology Vignesh Currie M.D. [address] [place] [phone] (Wo rk) 01/16/2022 Appointment Cardiovascular Disease Maritza Currie M.D. [address] [place] [address] 55 [phone] (Wo rk) 01/16/2022 Appointment Radiology Vignesh Currie M.D. [address] [place] [address] 55 [phone] (Wo rk) 01/16/2022 Appointment Cardiovascular Disease Maritza Currie M.D. [address] [place] [address] [phone] (Wo rk) documented as of this encounter Visit Diagnoses Not on filedocumented in this encounter
--- OUTSIDE RECORDS SUMMARY | 2021-12-10 15:10 | XMS_ITS | Encounter Summary ---
:1945 Author Organization [facility] Address [address] [place] [address] Care Team Providers Name Role Phone Unavailable Primary Care Provider Unavailable Encounter Details Date Type Department Care Team Description 07/08/2012 Hospital Encounter HX [facility] [place] Nicki Anthony, MAL, C.N.P., D. N.P. [address] [place] [address] (Wo rk) Social History Tobacco [...] by mouth daily. Take 0 11/13/2021 with [employer]. documented as of this encounter Progress Notes Conversion, Historical Provider Ser - 07/08/2012 8:52 AM CDT [id number] CHIEF COMPLAINT/REASON FOR VISIT Follow-up wellness coaching [...] and continue to monitor her progress. Annie Pérez/[employer] Electronically Signed By: ANNIE PÉREZ On: 07/15/2012 12:02 PM Source: [facility] MHSDOLBEYNONRADSYS Document Id: [id number] documented in this encounter Plan of Treatment Upcoming Encounters Date Type Specialty Care Team Description 12/26/2021 Office Visit Cardiovascular Disease Maritza Currie M.D. [address] [place] [phone] (Wo rk) 01/16/2022 Appointment Radiology Vignesh Currie M.D. [address] [place] [phone] (Wo rk) 01/16/2022 Appointment Cardiovascular Disease Maritza Currie M.D. [address] [place] [phone] (Wo rk) 01/16/2022 Appointment Radiology Vignesh Currie M.D. [address] [place] [phone] (Wo rk) 01/16/2022 Appointment Cardiovascular Disease Maritza Currie M.D. [address] [place] [phone] (Wo rk) documented as of this encounter Visit Diagnoses Not on filedocumented in this encounter
--- OUTSIDE RECORDS SUMMARY | 2021-12-10 15:10 | XMS_ITS | Encounter Summary ---
:1945 Author Organization [facility] Address [address] [place] [address] Care Team Providers Name Role Phone Unavailable Primary Care Provider Unavailable Encounter Details Date Type Department Care Team Description 06/11/2011 Hospital Encounter HX NO MAPPING Dandy Mccarthy P.T. [address] [place], [place] [phone] Social History Tobacco Use [...] encounter Progress Notes Adriane Mccarthy P.T. - 06/11/2011 12:00 AM CDT [id number] Message left on pt's voice confirmed voice mail. Source: [facility] RWHXTRANSXRTFSYS Document Id: [id number] Electronically signed by Sae [facility] Information Technology Security Analyst [id number] at 07/19/2016 7:59 PM CDT documented in this encounter Plan of Treatment Upcoming Encounters Date Type Specialty Care Team Description 12/26/2021 Office Visit Cardiovascular Disease Maritza Currie M.D. [address] [place], [place] [phone] (Wo rk) 01/16/2022 Appointment Radiology Vignesh Currie M.D. [address] [place] [phone] (Wo rk) 01/16/2022 Appointment Cardiovascular Disease Maritza Currie M.D. [address] [place], [place] [phone] (Wo rk) 01/16/2022 Appointment Radiology Vignesh Currie M.D. [address] [place] [phone] (Jean rk) 01/16/2022 Appointment Cardiovascular Disease Maritza Currie M.D. [address] [place] [phone] ([place]) documented as of this encounter Visit Diagnoses Not on filedocumented in this encounter
--- OUTSIDE RECORDS SUMMARY | 2021-12-10 15:10 | XMS_ITS | Encounter Summary ---
:1945 Author Organization [facility] Address [address] [place] [address] Care Team Providers Name Role Phone Unavailable [...] Visit Cardiovascular Disease Maritza Currie M.D. [address] [place] [phone] ([place]) 01/16/2022 Appointment Radiology Vignesh Currie M.D. [address] [place] [phone] ([place]) 01/16/2022 Appointment Cardiovascular Disease Maritza Currie M.D. [address] [place] [phone] ([place]) 01/16/2022 Appointment Radiology Vignesh Currie M.D. [address] [place] [phone] ([place]) 01/16/2022 Appointment Cardiovascular Disease Maritza Currie M.D. [address] [place], [place] [phone] (Wo rk) documented as of this encounter Visit Diagnoses Not on filedocumented in this encounter
--- OUTSIDE RECORDS SUMMARY | 2021-12-10 15:10 | XMS_ITS | Encounter Summary ---
:1945 Author Organization [facility] Address [address] [place] [address] Care Team Providers Name Role Phone Unavailable Primary Care Provider Unavailable Encounter Details Date Type Department Care Team Description 04/29/2012 Hospital Encounter [facility] [place] Nicki Holt, MAL, C.N.P., D. N.P. [address] [place] [address] (Wo rk) Social History Tobacco [...] D.N.P., C.N.P. - 04/29/2012 1:50 PM CDT [id number] CHIEF COMPLAINT/REASON FOR VISIT Diabetic examination. HISTORY OF PRESENT ILLNESS The patient is a 66-year-old female who presents to the clinic today for a routine diabetic examination. Presently at this time, she is working with our health and wellness health coach for her diabetes in which she [...] and reactive to light and accommodation. OROPHARYNX: [place] and moist. TMs: Bilateral tympanic membranes are [...] expressed understanding of the content Nicki Holt D.N.P./F.N.P/[facility] DOCID: [id number] Electronically Signed By: NICKI HOLT DNP, FNP On: 05/04/2012 07:35 PM Source: [facility] MHSDOLBEYNONRADSYS Document Id: [id number] documented in this encounter Miscellaneous Notes Miscellaneous - Nicki Holt D.N.P., C.N.P. - 04/29/2012 3:00 PM CDT Ambulatory Patient Summary [address] [address] Visit Information Name: ARCHIE BAZAN [facility] Number: [id number] Current Date: 04/29/2012 15:00:41 [...] Provider 04/30/2012 10:45 CAM Family Med consult [facility] Health Senior Assistant Manager 05/06/2012 08:45 CAM Family Med consult [facility] Health Senior Assistant Manager Your Goals/Additional instructions: Source: [facility] POWERCHART Document Id: [id number] Miscellaneous - Nicki Holt D.N.P., C.N.P. - 04/29/2012 3:00 PM CDT Ambulatory Depart Summary [address] [place] [address] Visit Information Name: ARCHIE BAZAN [facility] Number: [id number] Visit Date: 04/29/2012 15:00:40 [...] your provider for clarification. Additional Information: Source: [facility] POWERCHART Document Id: [id number] Miscellaneous - Nicki Holt D.NRegina, C.N.P. - 04/29/2012 2:58 PM CDT Quality [...] Check : Intact Intact NICKI HOLT DNP, FNP - 04/29/2012 14:58 CDT NICKI HOLT DNP, FNP - 04/29/2012 14:58CDT Source: [facility] CopyRightNow Document Id: [id number] Miscellaneous - Vitaliy Darnell L.PJairoNJairo - 04/29/2012 1:57 PM CDT Adult Qa Developer Intake/History Adult Qa Developer Intake/History Entered On: 04/29/2012 14:00 CDT Performed [...] Given By : Patient Languages : Scottish VITALIY DARNELL LPN - 04/29/2012 13:57 CDT [...] PETRA RUSSELL LPN; Reviewed Date: 03/09/2012 13:21 TRUCK DRIVER HELPER Benicar Estimated Onset Date: Unspecified ; Created By: PETRA RUSSELL LPN; Reaction Status: Active ; Category: Drug ; Substance: Benicar ; Type: Allergy ; Updated By: PETRA RUSSELL LPN; Reviewed Date: 03/09/2012 13:21 TRUCK DRIVER HELPER Source: [facility] POWERCHART Document Id: [id number] documented in this encounter Plan of Treatment Upcoming Encounters Date Type Specialty Care Team Description 12/26/2021 Office Visit Cardiovascular Disease Maritza Currie M.D. [address] [place] [address] [phone] (Wo rk) 01/16/2022 Appointment Radiology Vignesh Currie M.D. [address] [place], [place] [phone] (Wo rk) 01/16/2022 Appointment Cardiovascular Disease Maritza Currie M.D. [address] [place], [place] [phone] (Wo rk) 01/16/2022 Appointment Radiology Vignesh Currie M.D. [address] [place], [place] [phone] (Wo rk) 01/16/2022 Appointment Cardiovascular Disease Maritza Currie M.D. [address] [place], [place] [phone] (Wo rk) documented as of this encounter Visit Diagnoses Not on filedocumented in this encounter
--- OUTSIDE RECORDS SUMMARY | 2021-12-10 15:10 | XMS_ITS | Encounter Summary ---
:1945 Author Organization [facility] Address [address] [place] [address] Care Team Providers Name Role Phone Unavailable Primary Care Provider Unavailable Encounter Details Date Type Department Care Team Description 03/09/2012 Hospital Encounter HX [facility] [place] Vickey Holt, MAL, C.N.P., D. N.P. [address] [place] [address] (Wo rk) Social History Tobacco [...] Comments Blood Pressure 130/60 03/09/2012 1:31 PM INTERNATIONAL MANAGER Pulse 77 03/09/2012 1:31 PM INTERNATIONAL MANAGER Temperature - - Respiratory Rate 18 03/09/2012 1:31 PM INTERNATIONAL MANAGER Oxygen Saturation - - Inhaled Oxygen Concentration - - Weight 88.8 kg (195 lb 12.3 oz) 03/09/2012 1:31 PM INTERNATIONAL MANAGER Height 161 cm (5' 3.39) 03/09/2012 1:31 PM INTERNATIONAL MANAGER Body Mass Index 34.26 03/09/2012 1:31 PM INTERNATIONAL MANAGER documented in this encounter Medications at Time of Discharge Medication Sig Dispensed Refills Start Date End Date ASPIRIN ORAL Take 81 mg by mouth daily. Take 0 11/13/2021 with food for heart health. documented as of this encounter Progress Notes Vickey Holt D.N.P., C.N.P. - 03/09/2012 1:14 PM CST [id number] CHIEF COMPLAINT/REASON FOR VISIT Heart palpitations. HISTORY [...] x 3. HEAD: Normocephalic/atraumatic. PUPILS: GENE. OROPHARYNX: [place] and moist. TMs: Bilateral TMs are clear, [...] of the clinic in no acute distress. Vickey Holt D.N.P./Elmer/rodrick Electronically Signed By: VICKEY HOLT DNP, FNP On: 03/18/2012 08:45 AM Source: [facility] MHSDOLBEYNONRADSYS Document Id: [id number] RNATIONAL MANAGER documented in this encounter Nursing Notes Enma Malhotra R.N. - 03/09/2012 2:16 PM CST 30 day event monitor 30 day event monitor was ordered for symptomatic palpitations lasting less than 3 minutes. Monitor will be mailed to patient. Electronically Signed By: ENMA MALHOTRA RN On: 03/09/2012 02:18 PM Source: [facility] POWERCHART Document Id: [id number] RNATIONAL MANAGER documented in this encounter Miscellaneous Notes Miscellaneous - Vickey Holt D.N.P., C.N.P. - 03/09/2012 5:07 PM INTERNATIONAL MANAGER Ambulatory Patient Summary [address] [place] [address] Visit Information Name: MARCIAL BAZAN [facility] Number: [id number] Current Date: 03/09/2012 17:07:55 Physicians Attending Provider: VICKEY HOLT DNP, FNP [...] found Your Goals/Additional instructions: Source: [facility] POWERCHART Document Id: [id number] RNATIONAL MANAGER Miscellaneous - Vickey Holt D.N.P., C.N.P. - 03/09/2012 5:07 PM INTERNATIONAL MANAGER Ambulatory Depart Summary [address] [address] Visit Information Name: MARCIAL BAZAN [facility] Number: [id number] Visit Date: 03/09/2012 17:07:54 Attending Provider: VICKEY HOLT DNP, FNP Primary [...] your provider for clarification. Additional Information: Source: [facility] POWERCHART Document Id: [id number] RNATIONAL MANAGER Miscellaneous - Mel Batista L.P.N. - 03/09/2012 1:33 PM CST Health Assessment Health Assessment Entered On: 03/09/2012 13:33 INTERNATIONAL MANAGER Performed On: 03/09/2012 13:33 INTERNATIONAL MANAGER by MEL BATISTA LPN Health Assessment Complete Health Assessment Complete or Modified : Annual Health Assessment Annual Health Assessment Completed : Yes MEL BATISTA LPN - 03/09/2012 13:33 INTERNATIONAL MANAGER Nutrition Nutrition Risk Factors by History Adult : None MEL BATISTA LPN - 03/09/2012 13:33 INTERNATIONAL MANAGER Functional Current Daily Living Assistance : None MEL BATISTA LPN - 03/09/2012 13:33 INTERNATIONAL MANAGER Dependent Habits Tobacco Use/Currently Using : No Exposure to Tobacco Smoke : Care provider denies smoking in home Smoking Status : Never smoker MEL BATISTA LPN - 03/09/2012 13:33 INTERNATIONAL MANAGER Caffeine Use Grid Caffeine Use : Current Type : Tea Frequency : Occasionally MEL BATISTA LPN - 03/09/2012 13:33 INTERNATIONAL MANAGER Recreational Drug Use Grid Drug Use : None MEL BATISTA LPN - 03/09/2012 13:33 INTERNATIONAL MANAGER Psychosocial Domestic Abuse Concerns : None MEL BATISTA LPN - 03/09/2012 13:33 INTERNATIONAL MANAGER Advance Directive Advanced Directives : No MEL BATISTA LPN - 03/09/2012 13:33 INTERNATIONAL MANAGER Educ Needs Learning Style Preference Adult Grid Patient : None Family : None MEL BATISTA LPN - 03/09/2012 13:33 INTERNATIONAL MANAGER Source: [facility] POWERCHART Document Id: [id number] RNATIONAL MANAGER Miscellaneous - Mel Batista L.P.NJairo - 03/09/2012 1:31 PM CST Adult Human Services Supervisor Intake/History Adult Human Services Supervisor Intake/History Entered On: 03/09/2012 13:33 INTERNATIONAL MANAGER Performed On: 03/09/2012 13:31 INTERNATIONAL MANAGER by MEL BATISTA LPN Intake Temperature Core [...] 34.26kg/m2 MEL BATISTA LPN - 03/09/2012 13:31 INTERNATIONAL MANAGER Subjective Pain Symptoms : No MEL BATISTA LPN - 03/09/2012 13:31 INTERNATIONAL MANAGER Dependent Habits Tobacco Use/Currently Using : No Exposure to Tobacco Smoke : Care provider denies smoking in home Smoking Status : Never smoker Alcohol Use : No MEL BATISTA LPN - 03/09/2012 13:31 INTERNATIONAL MANAGER Caffeine Use Grid Caffeine Use : Current Type : Tea Frequency : Occasionally MEL BATISTA LPN - 03/09/2012 13:31 INTERNATIONAL MANAGER Recreational Drug Use Grid Drug Use : None MEL BATISTA LPN - 03/09/2012 13:31 INTERNATIONAL MANAGER Allergy Allergies (Active) azithromycin Estimated Onset Date: Unspecified ; Created By: PETRA RUSSELL LPN; Reaction Status: Active ; Category: Drug ; Substance: azithromycin ; Type: Allergy ; Updated By: PETRA RUSSELL LPN; Reviewed Date: 03/09/2012 13:21 INTERNATIONAL MANAGER Benicar Estimated Onset Date: Unspecified ; Created By: PETRA RUSSELL LPN; Reaction Status: Active ; Category: Drug ; Substance: Benicar ; Type: Allergy ; Updated By: PETRA RUSSELL LPN; Reviewed Date: 03/09/2012 13:21 INTERNATIONAL MANAGER Source: [facility] POWERCHART Document Id: [id number] RNATIONAL MANAGER documented in this encounter Plan of Treatment Upcoming Encounters Date Type Specialty Care Team Description 12/26/2021 Office Visit Cardiovascular Disease Maritza Currie M.D. [address] [place] [address] [phone] (Wo rk) 01/16/2022 Appointment Radiology Vignesh Currie M.D. [address] [place], [place] [phone] (Wo rk) 01/16/2022 Appointment Cardiovascular Disease Maritza Currie M.D. [address] [place], [place] [phone] (Wo rk) 01/16/2022 Appointment Radiology Vignesh Currie M.D. [address] [place], [place] [phone] (Wo rk) 01/16/2022 Appointment Cardiovascular Disease Maritza Currie M.D. [address] [place], [place] [phone] (Wo rk) documented as of this encounter Visit Diagnoses Not on filedocumented in this encounter
--- OUTSIDE RECORDS SUMMARY | 2021-12-10 15:10 | XMS_ITS | Encounter Summary ---
:1945 Author Organization [facility] Address [address] [place] [address] Care Team Providers Name Role Phone Unavailable Primary Care Provider Unavailable Encounter Details Date Type Department Care Team Description 05/20/[address] [facility] Nicki Anthony, MAL, C.N.P., D. N.P. [address] [place] [address] (Wo rk) Social History Tobacco [...] mouth daily. Take 0 11/13/2021 with food [facility]. documented as of this encounter Progress Notes Conversion, Historical Provider Ser - 05/20/2012 3:43 PM CDT [id number] HEALTH AND WELLNESS COACHING REFERRING PHYSICIAN: Nicki Anthony, D.N.P./F.N.P. CHIEF COMPLAINT/REASON FOR VISIT The patient was seen at the [facility] in [place] on 05/20/2012 for a follow-up visit in [...] and continue on with our sessions. Annie Pérez/[facility] Electronically Signed By: ANNIE PÉREZ On: 06/14/2012 11:54 AM Source: [facility] MHSDOLBEYNONRADSYS Document Id: [id number] documented in this encounter Plan of Treatment Upcoming Encounters Date Type Specialty Care Team Description 12/26/2021 Office Visit Cardiovascular Disease Maritza Currie M.D. [address] [place] [phone] (Jean rk) 01/16/2022 Appointment Radiology Vignesh Currie M.D. [address] [place] [phone] ([place]) 01/16/2022 Appointment Cardiovascular Disease Maritza Currie M.D. [address] [place] [address] [phone] ([place]) 01/16/2022 Appointment Radiology Vignesh Currie M.D. [address] [place] [address] [phone] ([place]) 01/16/2022 Appointment Cardiovascular Disease Maritza Currie M.D. [address] [place] [phone] ([place]) documented as of this encounter Visit Diagnoses Not on filedocumented in this encounter
--- OUTSIDE RECORDS SUMMARY | 2021-12-10 15:10 | XMS_ITS | Encounter Summary ---
:1945 Author Organization [facility] Address [address] [place] [address] Care Team Providers Name Role Phone Unavailable Primary Care Provider Unavailable Encounter Details Date Type Department Care Team Description 04/08/2012 Hospital Encounter HX [facility] ME Nicki Anthony, MAL, C.N.P., D. N.P. [address] [place] [address] (Wo rk) Social History Tobacco [...] mouth daily. Take 0 11/13/2021 with food [employer]. documented as of this encounter Progress Notes Conversion, Historical Provider Ser - 04/08/2012 8:51 AM CST [id number] HEALTH AND WELLNESS COACHING Followup visit: Today [...] at 10/10 confidence level. Annie Almonte DOCID: [id number] Electronically Signed By: SE ABEBA GALAN, INBOX LEA02 On: 07/05/2014 02:05 PM Source: [facility] PRESTONSDOLBEYNPERRY Document Id: [id number] Addendum by SE ABEBA GALAN, INBOX LEA02 on 05 Jul 2014 14:05 CDT [facility] administratively closed. Provider on longer with facility. Report filed unsigned. Modified by and Electronically Signed by: SE ABEBA GALAN, INBOX LEA02 On: 07/05/2014 02:05 PM Source: [facility] POWERCHART Document Id: [id number] documented in this encounter Plan of Treatment Upcoming Encounters Date Type Specialty Care Team Description 12/26/2021 Office Visit Cardiovascular Disease Maritza Currie M.D. [address] [place], [place] [phone] ([place]) 01/16/2022 Appointment Radiology Vignesh Currie M.D. [address] [place] [phone] ([place]) 01/16/2022 Appointment Cardiovascular Disease Maritza Currie M.D. [address] [place] [phone] ([place]) 01/16/2022 Appointment Radiology Vignesh Currie M.D. [address] [place] [address] [phone] (Wo rk) 01/16/2022 Appointment Cardiovascular Disease Maritza Currie M.D. [address] [place], [place] [phone] (Wo rk) documented as of this encounter Visit Diagnoses Not on filedocumented in this encounter
--- OUTSIDE RECORDS SUMMARY | 2021-12-10 15:10 | XMS_ITS | Encounter Summary ---
:1945 Author Organization [facility] Address [address] [place] [address] Care Team Providers Name Role Phone Unavailable Primary Care Provider Unavailable Encounter Details Date Type Department Care Team Description 09/15/2011 Hospital Encounter [facility] ME Vickey Holt, MAL, C.N.P., D. N.P. [address] [place] [address] (Wo rk) Social History Tobacco [...] Progress Notes Vickey Holt, D.N.P., C.N.P. - 09/15/2011 12:00 AM CDT [id number] CHIEF COMPLAINT/REASON FOR VISIT Vaginal discharge and [...] plan. Patient/child/caregiver expressed understanding of the content. Vickey Holt D.N.P./Elmer/felix Electronically Signed By: VICKEY HOLT DNP, FNP On: 09/16/2011 07:26 AM Source: [facility] MHSDOLBEYNONRADSYS Document Id: [id number] documented in this encounter Miscellaneous Notes Miscellaneous - Sylvia Darnell L.P.NJairo - 11/17/2011 5:35 PM CDT Quality Measures Quality Measures Entered On: 11/18/2011 17:36 CDT Performed On: 11/17/2011 17:35 CDT by SYLVIA DARNELL LPN Diabetes Date of Last Eye Exam : 11/17/2011 CDT SYLVIA DARNELL LPN - 11/18/2011 17:35 CDT Source: [facility] POWERCHART Document Id: [id number] Miscellaneous - Vickey Holt D.N.Kvng, C.N.P. - 09/15/2011 3:43 PM CDT Ambulatory Patient Summary [id number] [place] [address] Visit Information Name: MARCIAL BAZAN Current Date: 09/15/2011 15:43:54 Physicians Attending Provider: VICKEY HOLT DNP, FNP [...] No Appointments found Your Goals/Additional instructions: Source: [facility] POWERCHART Document Id: [id number] Miscellaneous - Vickey Holt D.N.P., C.N.P. - 09/15/2011 3:43 PM CDT Ambulatory Depart Summary [facility] [address] [place] [address] Visit Information Name: MARCIAL BAZAN Visit Date: 09/15/2011 15:43:54 Attending Provider: VICKEY HOLT DNP, FNP Primary [...] clarification. Additional Information: Source: [facility] POWERCHART Document Id: [id number] Miscellaneous - Azra Blandon L.PJairoNJairo - 09/15/2011 2:38 PM CDT Adult Men'S Basketball Coach Intake/History Adult Men'S Basketball Coach Intake/History Entered On: 09/15/2011 14:45 CDT Performed On: 09/15/2011 14:38 CDT by AZRA CONCEPCION LPN Intake Chief Complaint : vaginal [...] Standing scale Dosing Weight Clinic : 88.80kg AZRA CONCEPCION LPN - 09/15/2011 14:38 CDT Subjective Pain Symptoms : No AZRA CONCEPCION LPN - 09/15/2011 14:38 CDT Dependent Habits Tobacco Use/Currently Using : No Exposure to Tobacco Smoke : Care provider denies smoking in home Smoking Status : Never smoker Alcohol Use : No AZRA CONCEPCION LPN - 09/15/2011 14:38 CDT Caffeine Use Grid Caffeine Use : Current Type : Tea Frequency : Occasionally AZRA CONCEPCION LPN - 09/15/2011 14:38 CDT Recreational Drug Use Grid Drug Use : None AZRA CONCEPCION LPN - 09/15/2011 14:38 CDT Allergy [...] LPN; Reviewed Date: 04/28/2011 7:57 CDT Source: [facility] POWERCHART Document Id: [id number] documented in this encounter Plan of Treatment Upcoming Encounters Date Type Specialty Care Team Description 12/26/2021 Office Visit Cardiovascular Disease Maritza Currie M.D. [address] [place] [phone] (Wo rk) 01/16/2022 Appointment Radiology Vignesh Currie M.D. [address] [place] [address] [phone] (Wo rk) 01/16/2022 Appointment Cardiovascular Disease Maritza Currie M.D. [address] [place] [address] [phone] (Wo rk) 01/16/2022 Appointment Radiology Vignesh Currie M.D. [address] [place] [address] [phone] (Wo rk) 01/16/2022 Appointment Cardiovascular Disease Maritza Currie M.D. [address] [place] [address] [phone] (Wo rk) documented as of [...] Volume Laterality Vagina 09/15/2011 3:15 PM CDT Vickey Holt APRN, C.N.P., D.N.P. LAB MICROBIOLO GY - GENERAL ORDERABLES Performing Organization Address City/State/ZIP Code Phon e Number POWERCHART documented in this encounter Visit Diagnoses Not on filedocumented in this encounter
--- OUTSIDE RECORDS SUMMARY | 2021-12-10 15:10 | XMS_ITS | Encounter Summary ---
:1945 Author Organization [facility] Address [address] [place] [address] Care Team Providers Name Role Phone Unavailable Primary Care Provider Unavailable Encounter Details Date Type Department Care Team Description 06/03/2012 Hospital Encounter [facility] Nicki Sosa, MAL, C.N.P., D. N.P. [address] [place] [address] (Wo rk) Social History Tobacco [...] mouth daily. Take 0 11/13/2021 with food [facility]. documented as of this encounter Progress Notes Conversion, Historical Provider Ser - 06/03/2012 3:44 PM CDT [id number] HEALTH & WELLNESS COACHING REFERRING PHYSICIAN Maritza Lucas.N.P./F.N.P CHIEF COMPLAINT/REASON FOR VISIT Today, patient was seen on 06/03/2012 in the [facility] for wellness coaching around the area of [...] ANNIE PÉREZ On: 06/14/2012 11:54 AM Source: [facility] MHSDOLBEYNONRADSYS Document Id: [id number] documented in this encounter Miscellaneous Notes Miscellaneous - Vitaliy Darnell LJairoP.N. - 06/03/2012 7:23 AM CDT Meaningful Use Influenza Exclusion Meaningful Use Influenza Exclusion Entered On: 06/03/2012 7:23 CDT Performed On: 06/03/2012 7:23 CDT by VITALIY DARNELL LPN Influenza Vaccine Exclusion Influenza Vaccine Exclusion : Patient declined VITALIY DARNELL LPN - 06/03/2012 7:23 CDT Source: [facility] POWERCHART Document Id: [id number] documented in this encounter Plan of Treatment Upcoming Encounters Date Type Specialty Care Team Description 12/26/2021 Office Visit Cardiovascular Disease Maritza Currie M.D. [address] [place], [place] [phone] ([place]) 01/16/2022 Appointment Radiology Vignesh Currie M.D. [address] [place] [address] [phone] ([place]) 01/16/2022 Appointment Cardiovascular Disease Maritza Currie M.D. [address] [place] [address] [phone] ([place]) 01/16/2022 Appointment Radiology Vignesh Currie M.D. [address] [place], [place] [phone] (Wo rk) 01/16/2022 Appointment Cardiovascular Disease Maritza Currie M.D. [address] [place], [place] [phone] (Wo rk) documented as of this encounter Visit Diagnoses Not on filedocumented in this encounter
--- OUTSIDE RECORDS SUMMARY | 2021-12-10 15:10 | XMS_ITS | Encounter Summary ---
:1945 Author Organization [facility] Address [address] [place] [address] Care Team Providers Name Role Phone Unavailable Primary Care Provider Unavailable Encounter Details Date Type Department Care Team Description 04/29/2012 Hospital Encounter [facility] Asha Ramon, MAL, C.N.P., D. N.P. [address] [place], [place] [phone] (Wo rk) Social History [...] by mouth daily. Take 0 11/13/2021 with [employer]. documented as of this encounter Miscellaneous Notes Miscellaneous - Nicki Anthony, Maritza.N.P., C.N.P. - 04/30/2012 9:31 AM CDT Results Notification Document Contains Addenda Addendum by VITALIY VILLEDA LPN on 30 April 2012 09:46:08 CDT Copy sent to patient. From: NICKI ANTHONY DNP, REFORESTATION WORKER To: VITALIY VILLEDA LPN Sent: 04/30/2012 09:31:51 CDT ! Show up: 04/30/2012 14:31:51 [facility] Subject: Results Notification Actions: Note to Nurse Source: [facility] POWERCHART Document Id: [id number] Electronically signed by Conversion, [facility] Registered Dental Assistant Rda [id number] at 07/16/2016 1:07 PM CDT documented in this encounter Plan of Treatment Upcoming Encounters Date Type Specialty Care Team Description 12/26/2021 Office Visit Cardiovascular Disease Maritza Currie M.D. [address] [place] [address] [phone] (Jean rk) 01/16/2022 Appointment Radiology Vignesh Currie M.D. [address] [place] [address] [phone] (Wo rk) 01/16/2022 Appointment Cardiovascular Disease Maritza Currie M.D. [address] [place] [address] [phone] (Wo rk) 01/16/2022 Appointment Radiology Vignesh Currie M.D. [address] [place] [address] [phone] (Jean rk) 01/16/2022 Appointment Cardiovascular Disease Maritza Currie M.D. [address] [place] [address] [phone] (Jean rk) documented as of this encounter Visit Diagnoses Not on filedocumented in this encounter
--- OUTSIDE RECORDS SUMMARY | 2021-12-10 15:10 | XMS_ITS | Encounter Summary ---
:1945 Author Organization [facility] Address [address] [place] [address] Care Team Providers Name Role Phone Unavailable Primary Care Provider Unavailable Encounter Details Date Type Department Care Team Description 06/15/2012 Hospital Encounter [facility] Nicki Holt, MAL, C.N.P., D.N.P. [address] [phone] (Wo rk) Social History Tobacco Use [...] by mouth daily. Take 0 11/13/2021 with Piki. documented as of this encounter Miscellaneous Notes Miscellaneous - Nicki Holt, Maritza.N.P., C.N.P. - 06/18/2012 12:35 PM CDT Normal Results Letter 18 Jun 2012 ARCHIE BAZAN [address] [place] [id number] Dear ARCHIE BAZAN, I am pleased to [...] 4.00 - 6.00 Sincerely, NICKI HOLT [address] [place] [address] Electronic Signature Electronically Signed By: NICKI HOLT DNP, FNP On: 18 Jun 2012 This document has images extracted. Source: [facility] POWERCHART Document Id: [id number] Electronically signed by Sae [facility] Supervisor Estimator And Drafter [id number] at 07/16/2016 11:15 AM CDT documented in this encounter Plan of Treatment Upcoming Encounters Date Type Specialty Care Team Description 12/26/2021 Office Visit Cardiovascular Disease Maritza Currie M.D. [address] [place] [address] [phone] ([place]) 01/16/2022 Appointment Radiology Vignesh Currie M.D. [address] [place], [place] [phone] ([place]) 01/16/2022 Appointment Cardiovascular Disease Maritza Currie M.D. [address] [place], [place] [phone] (Wo rk) 01/16/2022 Appointment Radiology Vignesh Currie M.D. [address] [place], [place] 55 [phone] (Wo rk) 01/16/2022 Appointment Cardiovascular Disease Maritza Currie M.D. [address] [place], [place] [phone] (Jean rk) documented as of this encounter Procedures [...] (06/15/2012 8:10 AM CDT) Analysis Performed At [facility] Time Signature Creatinine, 86.8 30.0 - POWERCHART [...] (06/15/2012 8:05 AM CDT) Analysis Performed At [facility] Time Signature Hemoglobin A1c, 6.96 (H) 4.00 [...]
--- OUTSIDE RECORDS SUMMARY | 2021-12-10 15:10 | XMS_ITS | Encounter Summary ---
:1945 Author Organization [facility] Address [address] [place] [address] Care Team Providers Name Role Phone Unavailable Primary Care Provider Unavailable Encounter Details Date Type Department Care Team Description 04/22/2012 Hospital Encounter HX [facility] Nicki Anthony, MAL, C.N.P., D. N.P. [address] [place] [phone] (Wo rk) Social History Tobacco [...] mouth daily. Take 0 11/13/2021 with food [employer]. documented as of this encounter Progress Notes Conversion, Historical Provider Ser - 04/22/2012 3:30 PM CST [id number] HEALTH & WELLNESS COACHING REFERRING PHYSICIAN: Nicki Anthony, D.N.P./F.N.P. The patient was 100% successful for both of her goals, goal #1 of making healthy meal options and substitutions. Also 100% successful in achieving her walking and moving every day and also three times a week on the treadmill in the [employer] shop. Today we discussed some other obstacles [...] for later. She also tried out the Croatian yogurt and also the Yoplait Croatian yogurt. She also experimented with avocado with [...] in a week's time. Annie Jeter DOCID: [id number] cc: Nicki Anthony D.N.P./NereidaNJairoP Electronically Signed By: SE ABEBA GALAN, INBOX [email or web address] On: 07/05/2014 01:48 PM Source: [facility] PRESTONSDOLBEYNCELESTINARADSYS Document Id: [id number] Addendum by SE ABEBA GALAN, INBOX [email or web address] on 05 Jul 2014 13:49 CDT [facility] administratively closed. Provider on longer with facility. Report filed unsigned. Modified by and Electronically Signed by: SE ABEBA GALAN, INBOX [email or web address] On: 07/05/2014 01:49 PM Source: [facility] POWERCHART Document Id: [id number] documented in this encounter Plan of Treatment Upcoming Encounters Date Type Specialty Care Team Description 12/26/2021 Office Visit Cardiovascular Disease Maritza Currie M.D. [address] [place] [address] [phone] ([place]) 01/16/2022 Appointment Radiology Vignesh Currie M.D. [address] [place] [address] [phone] ([place]) 01/16/2022 Appointment Cardiovascular Disease Maritza Currie M.D. [address] [place] [address] [phone] ([place]) 01/16/2022 Appointment Radiology Vignesh Currie M.D. [address] [place] [address] [phone] ([place]) 01/16/2022 Appointment Cardiovascular Disease Maritza Currie M.D. [address] [place] [address] [phone] ([place]) documented as of this encounter Visit Diagnoses Not on filedocumented in this encounter
--- OUTSIDE RECORDS SUMMARY | 2021-12-10 15:10 | XMS_ITS | Encounter Summary ---
:1945 Author Organization [facility] Address [address] [place] [address] Care Team Providers Name Role Phone Unavailable Primary Care Provider Unavailable Encounter Details Date Type Department Care Team Description 04/22/2012 Hospital Encounter [facility] Nicki Holt APRN, C.N.P., D.N.P. [address] [place], [place] [phone] (Wo rk) Social History [...] by mouth daily. Take 0 11/13/2021 with FLIP4NEW. documented as of this encounter Miscellaneous Notes Miscellaneous - Nicki Holt, Maritza.N.P., C.N.P. - 04/26/2012 12:38 PM CDT Results Notification Document Contains Addenda Addendum by VITALIY VILLEDA LPN on 26 April 2012 13:47:07 CDT Copy of results sent to patient. From: NICKI HOLT DNP, TRANSCRIPTER To: VITALIY VILLEDA LPN Sent: 04/26/2012 12:38:51 CDT ! Show up: 04/26/2012 17:38:[address] [facility] Subject: Results Notification Actions: Note to Nurse Source: [facility] POWERCHART Document Id: [id number] Electronically signed by Conversion, [facility] [employer] Game [employer] Manager [id number] at 07/16/2016 1:07 PM CDT documented in this encounter Plan of Treatment Upcoming Encounters Date Type Specialty Care Team Description 12/26/2021 Office Visit Cardiovascular Disease Maritza Currie M.D. [address] [place] [address] [phone] (Jean rk) 01/16/2022 Appointment Radiology Vignesh Currie M.D. [address] [place] [address] [phone] (Wo rk) 01/16/2022 Appointment Cardiovascular Disease Maritza Currie M.D. [address] [place] [address] [phone] (Wo rk) 01/16/2022 Appointment Radiology Vignesh Currie M.D. [address] [place] [address] [phone] (Jean rk) 01/16/2022 Appointment Cardiovascular Disease Maritza Currie M.D. [address] [place] [address] [phone] ([place]) documented as of this encounter Procedures Procedure Name Priority Date/Time Associated Comments Diagnosis THYROID-STIMULATING Routine 04/22/2012 3:28 PM Re sults for this HORMONE-SENSITIVE C PYTHON DEVELOPER procedure are in (S-TSH) the results section. CREATININE WITH Routine 04/22/2012 3:28 PM Result s for this EGFR, S/P C PYTHON DEVELOPER procedure are i n the results section. documented in this encounter Results (ABNORMAL) Creatinine with eGFR (04/22/2012 3:28 PM C PYTHON DEVELOPER) athologist Signature Creatinine 0.94 0.60 - 1.30 POWERCHART MGDL HXeGFR (MDRD) 59 (L) >=60 POWERCHART [id number] Comment: A GFR of <60 mL/min is indicative of chr onic kidney disease. (MDRD calculation valid on patients 18 - 70 years.) eGFR Black/ >60 >=60 [id number] POWERCHART Specimen (Source) Anatomical Collection Method Collection Time Re ceived Time Location / / Volume Laterality Blood 04/22/2012 3:28 PM C PYTHON DEVELOPER Nicki Holt APRN, C.N.P., D.N.P. LAB BLOOD ADD- ON Performing Organization Address City/State/ZIP Code Phon e Number POWERCHART Thyroid-Stimulating Hormone-Sensitive (s-TSH) (04/22/2012 3:28 PM C PYTHON DEVELOPER) athologist Signature TSH 4.87 0.30 - 5.00 POWERCHART (Thyrotropin) MCIUML Specimen (Source) Anatomical Collection Method Collection Time Re ceived Time Location / / Volume Laterality Blood 04/22/2012 3:28 PM C PYTHON DEVELOPER Nicki Holt APRN, C.N.P., D.N.P. LAB BLOOD ADD- ON Performing Organization Address City/State/ZIP Code Phon e Number POWERCHART documented in this encounter Visit Diagnoses Not on filedocumented in this encounter
--- OUTSIDE RECORDS SUMMARY | 2021-12-10 15:10 | XMS_ITS | Encounter Summary ---
:1945 Author Organization [facility] Address [address] [place] [address] Care Team Providers Name Role Phone Unavailable Primary Care Provider Unavailable Encounter Details Date Type Department Care Team Description 05/06/2012 Hospital Encounter [facility] Nicki Anthony, MAL, C.N.P., D. N.P. [address] [place] [address] (Wo rk) Social History Tobacco [...] daily. Take 0 11/13/2021 with food for [employer]. documented as of this encounter Progress Notes Conversion, Historical Provider Ser - 05/06/2012 8:58 AM CDT [id number] HEALTH AND WELLNESS COACHING REFERRING PHYSICIAN: Nicki Anthony, D.N.P./F.N.P CHIEF COMPLAINT/REASON FOR VISIT The patient was seen at the [facility] in [place] on 05/06/2012. The patient is here for [...] KIND bar or ARUN bar at the [employer] [facility]. FOLLOW-UP PLAN Will follow-up with patient in 1 to 2 weeks time and continue on with her wellness plan. Annie Pérez/[facility] Electronically Signed By: ANNIE PÉREZ On: 06/14/2012 11:54 AM Source: [facility] MHSDOLBEYNONRADSYS Document Id: [id number] documented in this encounter Plan of Treatment Upcoming Encounters Date Type Specialty Care Team Description 12/26/2021 Office Visit Cardiovascular Disease Maritza Currie M.D. [address] [place] [address] [phone] (Wo rk) 01/16/2022 Appointment Radiology Vignesh Currie M.D. [address] [place] [address] [phone] (Wo rk) 01/16/2022 Appointment Cardiovascular Disease Maritza Currie M.D. [address] [place] [address] [phone] (Wo rk) 01/16/2022 Appointment Radiology Vignesh Currie M.D. [address] [place] [address] [phone] (Wo rk) 01/16/2022 Appointment Cardiovascular Disease Maritza Currie M.D. [address] [place] [address] [phone] (Wo rk) documented as of this encounter Visit Diagnoses Not on filedocumented in this encounter
--- OUTSIDE RECORDS SUMMARY | 2021-12-10 15:10 | XMS_ITS | Encounter Summary ---
:1945 Author Organization [facility] Address [address] [place] [address] Care Team Providers Name Role Phone Unavailable Primary Care Provider Unavailable Encounter Details Date Type Department Care Team Description 03/22/2012 Hospital Encounter HX [facility] Nicki Holt, MAL, Deana.N.P., D.N.P. [address] [place], [place] [phone] (Wo rk) Social History [...] by mouth daily. Take 0 11/13/2021 with [place]or[place]. documented as of this encounter Miscellaneous Notes Miscellaneous - Nicki Holt, Maritza.N.P., C.N.P. - 03/22/2012 2:59 PM VENETIAN BLIND CLEANER AND REPAIRER Results Notification Document Contains Addenda Addendum by JOHN CONCEPCION LPN on 23 March 2012 10:08:45 VENETIAN BLIND CLEANER AND REPAIRER Results sent to patient via mail. From: NICKI HOLT DNP, SPINNING LATHE OPERATOR AUTOMATIC To: VITALIY VILLEDA LPN Sent: 03/22/2012 14:59:45 VENETIAN BLIND CLEANER AND REPAIRER ! Show up: 03/22/2012 20:59:45 [facility] Subject: Results Notification Actions: Note to Nurse Source: [facility] POWERCHART Document Id: [id number] Electronically signed by Conversion, [facility] Telecommunication Engineer [id number] at 07/16/2016 8:07 PM CDT documented in this encounter Plan of Treatment Upcoming Encounters Date Type Specialty Care Team Description 12/26/2021 Office Visit Cardiovascular Disease Maritza Currie M.D. [address] [place] [address] [phone] (Jean rk) 01/16/2022 Appointment Radiology Vignesh Currie M.D. [address] [place] [address] [phone] (Jean rk) 01/16/2022 Appointment Cardiovascular Disease Maritza Currie M.D. [address] [place] [address] [phone] (Jean rk) 01/16/2022 Appointment Radiology Vignesh Currie M.D. [address] [place] [address] [phone] ([place]) 01/16/2022 Appointment Cardiovascular Disease Maritza Currie M.D. [address] [place] [address] [phone] ([place]) documented as of this encounter Procedures Procedure Name Priority Date/Time Associated Comments Diagnosis ALANINE AMINOTRANSFERASE Routine 03/22/2012 1:38 Results for this (ALT), S/P PM VENETIAN BLIND CLEANER AND REPAIRER procedure are i n the results section. documented in this encounter Results ALT (Alanine Aminotransferase) (03/22/2012 1:38 PM VENETIAN BLIND CLEANER AND REPAIRER) P athologist Signature Alanine 18 15 - 37 UL POWERCHART Amniotransferas e, LD Specimen (Source) Anatomical Collection Method Collection Time Re ceived Time Location / / Volume Laterality Blood 03/22/2012 1:38 PM VENETIAN BLIND CLEANER AND REPAIRER Nicki Holt APRN, C.N.P., D.N.P. LAB BLOOD ADD- ON Performing Organization Address City/State/ZIP Code Phon e Number POWERCHART documented in this encounter Visit Diagnoses Not on filedocumented in this encounter
--- OUTSIDE RECORDS SUMMARY | 2021-12-10 15:10 | XMS_ITS | Encounter Summary ---
:1945 Author Organization [facility] Address [address] [place] [address] Care Team Providers Name Role Phone Unavailable Primary Care Provider Unavailable Encounter Details Date Type Department Care Team Description 03/09/2012 Hospital Encounter HX [facility] Nicki Holt, Deana RESENDEZ.N.P., D.N.P. [address] [place], [place] [phone] (Wo rk) Social History [...] by mouth daily. Take 0 11/13/2021 with Zumigo. documented as of this encounter Miscellaneous Notes Miscellaneous - Nicki Holt, Maritza.N.P., C.N.P. - 03/11/2012 3:52 PM WOODWORKING SHOP LABORER Results Notification Document Contains Addenda Addendum by ROBERT JIANG RN on 11 March 2012 16:23:40 WOODWORKING SHOP LABORER Letter mailed to patient. From: NICKI HOLT DNP, COLLEGE TUTOR To: ROBERT JIANG RN Sent: 03/11/2012 15:52:35 WOODWORKING SHOP LABORER ! Show up: 03/11/2012 21:52:35 [facility] Subject: Results Notification Actions: Note to Nurse Source: [facility] POWERCHART Document Id: [id number] Electronically signed by Conversion, [facility] Mechanic Driver [id number] at 07/16/2016 9:06 PM CDT documented in this encounter Plan of Treatment Upcoming Encounters Date Type Specialty Care Team Description 12/26/2021 Office Visit Cardiovascular Disease Maritza Currie M.D. [address] [place] [address] [phone] (Jean rk) 01/16/2022 Appointment Radiology Vignesh Currie M.D. [address] [place] [address] [phone] (Jean rk) 01/16/2022 Appointment Cardiovascular Disease Maritza Currie M.D. [address] [place] [address] [phone] (Wo rk) 01/16/2022 Appointment Radiology Vignesh Currie M.D. [address] [place] [address] [phone] (Wo rk) 01/16/2022 Appointment Cardiovascular Disease Maritza Currie M.D. [address] [place] [address] [phone] (Jean rk) documented as of this encounter Procedures Procedure Name Priority Date/Time Associated Comments Diagnosis LIPID PANEL, S Routine 03/09/2012 2:35 PM Results for this WOODWORKING SHOP LABORER procedure are i n the results section. ELECTROLYTE PANEL, S Routine 03/09/2012 2:35 PM R esults for this WOODWORKING SHOP LABORER procedure are i n the results section. THYROID-STIMULATING Routine 03/09/2012 2:35 PM Re sults for this HORMONE-SENSITIVE WOODWORKING SHOP LABORER procedure are in (S-TSH) the results section. HEMOGLOBIN A1C, B Routine 03/09/2012 2:35 PM Resu lts for this WOODWORKING SHOP LABORER procedure are i n the results section. documented in this encounter Results (ABNORMAL) Thyroid-Stimulating Hormone-Sensitive (s-TSH) (03/09/2012 2:35 PM WOODWORKING SHOP LABORER) Analysis Performed At [facility] Time Signature TSH 6.99 (H) 0.30 - 5.00 POWERCHART (Thyrotropin) MCIUML Specimen (Source) Anatomical Collection Method Collection Time Re ceived Time Location / / Volume Laterality Blood 03/09/2012 2:35 PM WOODWORKING SHOP LABORER Nikci Holt APRN, C.N.P., D.N.P. LAB BLOOD ADD- ON Performing Organization Address City/State/ZIP Code Phon e Number POWERCHART (ABNORMAL) Hemoglobin A1c (03/09/2012 2:35 PM WOODWORKING SHOP LABORER) Analysis Performed At [facility] Time Signature Hemoglobin A1c, 7.45 (H) 4.00 - POWERCHART B 6.00 Specimen (Source) Anatomical Collection Method Collection Time Re ceived Time Location / / Volume Laterality Blood 03/09/2012 2:35 PM WOODWORKING SHOP LABORER Nicki Holt APRN, C.N.P., D.N.P. LAB BLOOD ADD- ON Performing Organization Address City/State/ZIP Code Phon e Number POWERCHART Electrolyte Panel (03/09/2012 2:35 PM WOODWORKING SHOP LABORER) athologist Signature Sodium, S 139.8 135.0 - POWERCHART 145.0 MML Potassium, S 4.0 3.6 - 4.8 POWERCHART MMOLL Chloride, S 102 100 - 108 POWERCHART MMOLL CO2 Total 27.0 23.0 - 29.0 POWERCHART MMOLL Anion Gap 11 10 - 20 POWERCHART MMOLL Specimen (Source) Anatomical Collection Method Collection Time Re ceived Time Location / / Volume Laterality Blood 03/09/2012 2:35 PM WOODWORKING SHOP LABORER Nicki Holt APRN, C.N.P., D.N.P. LAB BLOOD ADD- ON Performing Organization Address City/State/ZIP Code Phon e Number POWERCHART (ABNORMAL) Lipid Panel (03/09/2012 2:35 PM WOODWORKING SHOP LABORER) P athologist Signature Cholesterol, 208 (H) 0 [...] / Volume Laterality Blood 03/09/2012 2:35 PM WOODWORKING SHOP LABORER Nicki Holt APRN, C.N.P., D.N.P. LAB BLOOD ADD- ON Performing Organization Address City/State/ZIP Code Phon e Number POWERCHART documented in this encounter Visit Diagnoses Not on filedocumented in this encounter
--- OUTSIDE RECORDS SUMMARY | 2021-12-10 15:10 | XMS_ITS | Encounter Summary ---
:1945 Author Organization [facility] Address [address] [place] [address] Care Team Providers Name Role Phone Unavailable [...] Visit Cardiovascular Disease Maritza Currie M.D. [address] [place], [place] [phone] ([place]) 01/16/2022 Appointment Radiology Vignesh Currie M.D. [address] [place] [address] [phone] ([place]) 01/16/2022 Appointment Cardiovascular Disease Maritza Currie M.D. [address] [place] [address] [phone] ([place]) 01/16/2022 Appointment Radiology Vignesh Currie M.D. [address] [place] [address] [phone] ([place]) 01/16/2022 Appointment Cardiovascular Disease Maritza Currie M.D. [address] [place], [place] [phone] (Wo rk) documented as of this encounter Visit Diagnoses Not on filedocumented in this encounter
--- OUTSIDE RECORDS SUMMARY | 2021-12-10 15:10 | XMS_ITS | Encounter Summary ---
:1945 Author Organization [facility] Address [address] [place] [address] Care Team Providers Name Role Phone Unavailable Primary Care Provider Unavailable Encounter Details Date Type Department Care Team Description 12/05/2011 Hospital Encounter [facility] Nicki Anthony, MAL, C.N.P., D.N.P. [address] [place], [place] [phone] ([place]) Social History [...] Visit Cardiovascular Disease Maritza Currie M.D. [address] [place], [place] [phone] ([place]) 01/16/2022 Appointment Radiology Vignesh Currie M.D. [address] [place] [address] [phone] ([place]) 01/16/2022 Appointment Cardiovascular Disease Maritza Currie M.D. [address] [place] [address] [phone] ([place]) 01/16/2022 Appointment Radiology Vignesh Currie M.D. [address] [place], [place] [phone] (Wo rk) 01/16/2022 Appointment Cardiovascular Disease Maritza Currie M.D. [address] [place], [place] [phone] (Wo rk) documented as [...]
--- OUTSIDE RECORDS SUMMARY | 2021-12-10 15:10 | XMS_ITS | Encounter Summary ---
:1945 Author Organization [facility] Address [address] [place] [address] Care Team Providers Name Role Phone Unavailable Primary Care Provider Unavailable Encounter Details Date Type Department Care Team Description 05/27/2011 Hospital Encounter HX NO MAPPING Dandy Mccarthy P.T. [address] [place], [place] [phone] Social History Tobacco Use [...] Mccarthy P.T. - 05/27/2011 2:30 PM CDT [id number] REHAB SNAPSHOT Referring Provider: Tona Ledesma M.D. 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 This plan of care has been discussed with the patient/career development director and the patient/career development director is in agreement. Frequency / Duration: Patient would like to try the HEP for 2 weeks if she does not notice improve or is having difficulty with the HEP she will return for a follow-up visit. Anticipated discharge plan: Independent and safe with home exercise and self care program Adriane Mccarthy, DPT Date: 05/27/2011 Referring Provider Certification: Referring Provider [...] Total Time-Based Code Only Minutes: 23 minutes. RESIDENTIAL DESIGNER PRESENT: NA MULTIDISCIPLINARY PATIENT / FAMILY EDUCATION [...] Demonstrated ability, Verbalized recall / understanding Source: [employer]OUPHXTRANSXRTFSYS Document Id: [id number] documented in this encounter Plan of Treatment Upcoming Encounters Date Type Specialty Care Team Description 12/26/2021 Office Visit Cardiovascular Disease Maritza Currie M.D. [address] [place] [phone] (Jean rk) 01/16/2022 Appointment Radiology Vignesh Currie M.D. [address] [place] [address] [phone] (Wo rk) 01/16/2022 Appointment Cardiovascular Disease Maritza Currie M.D. [address] [place] [address] [phone] (Wo rk) 01/16/2022 Appointment Radiology Vignesh Currie M.D. [address] [place] [address] [phone] (Wo rk) 01/16/2022 Appointment Cardiovascular Disease Maritza Currie M.D. [address] [place] [address] [phone] (Jean rk) documented as of this encounter Visit Diagnoses Not on filedocumented in this encounter
--- OUTSIDE RECORDS SUMMARY | 2021-12-10 15:10 | XMS_ITS | Encounter Summary ---
:1945 Author Organization [facility] Address [address] [place] [address] Care Team Providers Name Role Phone Unavailable [...] Visit Cardiovascular Disease Maritza Currie M.D. [address] [place] [address] [phone] ([place]) 01/16/2022 Appointment Radiology Vignesh Currie M.D. [address] [place] [address] [phone] ([place]) 01/16/2022 Appointment Cardiovascular Disease Maritza Currie M.D. [address] [place] [address] [phone] ([place]) 01/16/2022 Appointment Radiology Vignesh Currie M.D. [address] [place] [address] [phone] ([place]) 01/16/2022 Appointment Cardiovascular Disease Maritza Currie M.D. [address] [place] [address] [phone] (Wo rk) documented as of this encounter Visit Diagnoses Not on filedocumented in this encounter
--- OUTSIDE RECORDS SUMMARY | 2021-12-10 15:10 | XMS_ITS | Encounter Summary ---
:1945 Author Organization [facility] Address [address] [place] [address] Care Team Providers Name Role Phone Unavailable Primary Care Provider Unavailable Encounter Details Date Type Department Care Team Description 03/31/[address] [facility] Nicki Anthony, MAL, C.N.P., D. N.P. [address] [place] [address] (Wo rk) Social History Tobacco [...] mouth daily. Take 0 11/13/2021 with food Acusphere. documented as of this encounter Consult Notes Conversion, Historical Provider Ser - 03/31/2012 11:01 AM CST [id number] CHIEF COMPLAINT/REASON FOR VISIT The patient was [...] does not report being tired), stress level 10, mood 10, energy 8-/10. In addition to her diabetes, we discussed [...] Relaxation CD or stretching. Annie Pérez/arnol DOCID: [id number] cc: Nicki Antohny D.N.P./Stanislav.N.P Electronically Signed By: ANNIE PÉREZ On: 04/27/2012 06:08 PM Source: [facility] [id number] Document Id: [id number] documented in this encounter Plan of Treatment Upcoming Encounters Date Type Specialty Care Team Description 12/26/2021 Office Visit Cardiovascular Disease Maritza Currie M.D. [address] [place], [place] [phone] ([place]) 01/16/2022 Appointment Radiology Vignesh Currie M.D. [address] [place], [place] [phone] ([place]) 01/16/2022 Appointment Cardiovascular Disease Maritza Currie M.D. [address] [place], [place] [phone] (Wo rk) 01/16/2022 Appointment Radiology Vignesh Currie M.D. [address] [place] [phone] (Wo rk) 01/16/2022 Appointment Cardiovascular Disease Maritza Currie M.D. [address] [place] [phone] (Wo rk) documented as of this encounter Visit Diagnoses Not on filedocumented in this encounter
--- OUTSIDE RECORDS SUMMARY | 2021-12-10 15:10 | XMS_ITS | Encounter Summary ---
:1945 Author Organization [facility] Address [address] [place] [address] Care Team Providers Name Role Phone Unavailable Primary Care Provider Unavailable Encounter Details Date Type Department Care Team Description 12/04/2011 Hospital En[facility] Nicki Anthony, MAL, C.N.P., D. N.P. [address] [place] [address] ([place]) Social History Tobacco Use Types [...] Cardiovascular Disease Maritza Currie M.D. [address] [place] [phone] ([place]) 01/16/2022 Appointment Radiology Vignesh Currie M.D. [address] [place] [phone] ([place]) 01/16/2022 Appointment Cardiovascular Disease Maritza Currie M.D. [address] [place] [phone] ([place]) 01/16/2022 Appointment Radiology Vignesh Currie M.D. [address] [place], [place] [phone] (Wo rk) 01/16/2022 Appointment Cardiovascular Disease Maritza Currie M.D. [address] [place], [place] [phone] (Jean rk) documented as of this encounter Visit Diagnoses Not on filedocumented in this encounter
--- OUTSIDE RECORDS SUMMARY | 2021-12-10 15:10 | XMS_ITS | Encounter Summary ---
:1945 Author Organization [facility] Address [address] [place] [address] Care Team Providers Name Role Phone Unavailable Primary Care Provider Unavailable Encounter Details Date Type Department Care Team Description 12/17/2011 Hospital Encounter HX [facility] Vickey Holt, MAL, C.N.P., D. N.P. 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 [facility] Time Spent With Patient : [...] STEINER RN - 12/17/2011 15:23 CDT Source: [facility] [employer] Document Id: [id number] documented in this encounter Miscellaneous Notes Miscellaneous - Luciana Steiner - 03/02/2012 4:55 PM CST Med Management Document Contains Addenda Addendum by LUCIANA STEINER RN on 05 March 2012 16:45:40 OIL TESTER Thanks. Addendum by VICKEY HOLT DNP, FNP on 05 March 2012 11:34:50 OIL TESTER letter dictated. Addendum by LUCIANA STEINER RN on 02 March 2012 17:40:04 OIL TESTER From: LUCIANA STEINER RN To: VICKEY HOLT DNP, FNP; Sent: 03/02/2012 17:40:04 OIL TESTER Subject: FW: Med Management Annabelle Caceres, I need help with dosing of Fish Oil, Mucinex, and Calcium. I tried to catch you a few times but you were in rooms. Also, I did inadvertently send prilosec directly instead of proposing so please check that it is okay. Sorry. THis is the message where Lurene is asking for a letter saying she has been recommended to take these so she can receive deduction. Addendum by VICKEY HOLT DNP, FNP on 02 March 2012 17:14:09 OIL TESTER From: VICKEY HOLT DNP, FNP To: LUCIANA STEINER RN Sent: 03/02/2012 17:14:09 OIL TESTER Subject: RE:Med Management Approved Order Order: aspirin (aspirin 81 mg oral tablet) 1 tab(s) PO Daily Take with food for heart health. Qty: 30 tab(s) Refills: 0 Substitutions Allowed Route To Pharmacy - [facility] Signed by VICKEY HOLT DNP, FNP 03/02/2012 17:14:08 From: LUCIANA STEINER RN To: VICKEY HOLT DNP, FNP; Sent: 03/02/2012 16:55:59 OIL TESTER Subject: Med Management Submitted: Order Order: omeprazole (Prilosec OTC 20 mg oral delayed release capsule) See Instructions one tab daily Qty: 30 tab(s) Refills: 0 Substitutions Allowed Route To Pharmacy - [facility] Signed by LUCIANA STEINER RN On hold pending signature Order Order: aspirin (aspirin 81 mg oral tablet) 1 tab(s) PO Daily Take with food for heart health. Qty: 30 tab(s) Refills: 0 Substitutions Allowed Route To Pharmacy - [facility] Documented Discontinue Order: aspirin (aspirin 81 mg oral tablet) Signed by LUCIANA STEINER RN 03/02/2012 16:50:06 Source: [facility] [employer] Document Id: [id number] Electronically signed by Sae [facility] Municipal Services Manager [id number] at 07/19/2016 11:11 PM CDT Miscellaneous - Luciana Steiner - 03/02/2012 10:45 AM CST General Message Document Contains Addenda Addendum by VICKEY HOLT DNP, FNP on 02 March 2012 12:49:58 OIL TESTER From: VICKEY HOLT DNP, FNP To: LUCIANA STEINER RN; Sent: 03/02/2012 12:49:58 OIL TESTER Subject: RE: General Message Addendum by VICKEY HOLT DNP, FNP on 02 March 2012 12:49:52 OIL TESTER Monica, can you turn these into prescription [...] VICKEY HOLT DNP, FNP; Sent: 03/02/2012 10:45:30 OIL TESTER Subject: General Message Patient would like letter stating the following OTC meds have been discussed and prescribed. She canthen submit letter and have it used as some kind of deduction. Low dose ASA, Prilosec OTC, Garlic, Fish Oil, Mucinex, Calcium. Source: [facility] POWERCHART Document Id: [id number] Electronically signed by Conversion, [facility] Municipal Services Manager [id number] at 07/19/2016 11:11 PM CDT Miscellaneous - Robert Jiang, RJairoN. - 02/26/2012 9:10 AM CST Requesting TSH Document Contains Addenda Addendum by ROBERT JIANG RN on 26 February 2012 10:11:31 OIL TESTER Orders pended. Addendum by VICKEY HOLT DNP, FNP on 26 February 2012 09:28:44 OIL TESTER From: VICKEY HOLT DNP, FNP To: ROBERT JIANG RN; Sent: 02/26/2012 09:28:44 OIL TESTER Subject: RE: Requesting TSH Addendum by VICKEY HOLT DNP, FNP on 26 February 2012 09:28:42 OIL TESTER Yes I am fine with that, thank you. From: ROBERT JIANG RN To: VICKEY HOLT DNP, FNP; Sent: 02/26/2012 09:10:11 OIL TESTER Subject: Requesting TSH Marcial called stating she [...] order if you approve. Thank you. Source: [facility] POWERCHART Document Id: [id number] Electronically signed by Sae, [facility] Municipal Services Manager [id number] at 07/19/2016 11:11 PM CDT Miscellaneous - Conversion, Historical Provider Ser - 01/29/2012 11:41 AM OIL TESTER Med Management Document Contains Addenda Addendum by JENA BEYER V on 29 January 2012 12:33:38 OIL TESTER called to scofields Addendum by VICKEY HOLT DNP, FNP on 29 January 2012 12:06:06 OIL TESTER From: VICKEY HOLT DNP, FNP To: JENA BEYER V; Sent: 01/29/2012 12:06:06 OIL TESTER Subject: RE: Med Management Addendum by VICKEY HOLT DNP, FNP on 29 January 2012 12:05:59 OIL TESTER completed. From: JENA BEYER V To: VICKEY HOLT DNP, FNP; JENA BEYER V; Sent: 01/29/2012 11:41:03 OIL TESTER Subject: Med Management Submitted: Order Order: alprazolam (Xanax 0.5 mg oral tablet) 1 tab(s) PO q8hr Take for anxiety. Qty: 25 tab(s) Refills: 1 Anxiety Print - [id number] Signed by JENA BEYER V 01/29/2012 11:40:18 [facility] shows this was filled 08/20/10 when last written Source: [employer] Document Id: [id number] Miscellaneous - Conversion, Historical Provider Ser - 01/29/2012 11:39 AM OIL TESTER simvastatin From: JENA BEYER V Sent: 01/29/2012 11:39:15 OIL TESTER Subject: simvastatin 30 day refill of simvastatin sent to [facility] per protocol. Orders have been pended already. LVM for pt to schedule labs/visit prior to next refill request Source: [employer] Document Id: [id number] documented in this encounter Plan of Treatment Upcoming Encounters Date Type Specialty Care Team Description 12/26/2021 Office Visit Cardiovascular Disease Maritza Currie M.D. [address] [place] [phone] (Wo rk) 01/16/2022 Appointment Radiology Vignesh Currie M.D. [address] [place] [phone] (Wo rk) 01/16/2022 Appointment Cardiovascular Disease Maritza Currie M.D. [address] [place] [phone] (Wo rk) 01/16/2022 Appointment Radiology Vignesh Currie M.D. [address] [place] [phone] (Jean r[place]) 01/16/2022 Appointment Cardiovascular Disease Maritza Currie M.D. [address] [place] [phone] (Jean [place]) documented as of this encounter Visit Diagnoses Not on filedocumented in this encounter
--- OUTSIDE RECORDS SUMMARY | 2021-12-10 15:11 | XMS_ITS | Encounter Summary ---
:1945 Author Organization [facility] Address [address] [place] [address] Care Team Providers Name Role Phone Unavailable Primary Care Provider Unavailable Encounter Details Date Type Department Care Team Description 06/27/2010 Hospital Encounter HX [facility] INTERNMED Provider, Lázaro lion Social History [...] Provider Ser - 06/27/2010 12:00 AM CDT [id number] Marcial Adams [address] [place] [phone] [place] June 27, 2010 Dear Marcial [...] to take advantage of this benefit. At [facility] we value and encourage preventive care and health education. It is simple to schedule your appointment. Call [phone] (toll-free: ), let the carbide operator know that you would like to [...] by an exam by a physician assistant business manager who will conduct a thorough health screening [...] to help you maintain your health. At [facility], we are committed to being you partner for a healthy future. Please call us when you are ready to schedule your appointment. Sincerely, Lana Schaeffer PA-C INTERNAL MEDICINE Source: [facility] [id number] Document Id: [id number] documented in this encounter Plan of Treatment Upcoming Encounters Date Type Specialty Care Team Description 12/26/2021 Office Visit Cardiovascular Disease Maritza Currie M.D. [address] [place], [place] [phone] (Wo rk) 01/16/2022 Appointment Radiology Vignesh Currie M.D. [address] [place], [place] [phone] (Wo rk) 01/16/2022 Appointment Cardiovascular Disease Maritza Currie M.D. [address] [place] [phone] (Wo rk) 01/16/2022 Appointment Radiology Vignesh Currie M.D. [address] [place] [phone] (Jean rk) 01/16/2022 Appointment Cardiovascular Disease Maritza Currie M.D. [address] [place] [phone] ([place]) documented as of this encounter Visit Diagnoses Not on filedocumented in this encounter
--- OUTSIDE RECORDS SUMMARY | 2021-12-10 15:11 | XMS_ITS | Encounter Summary ---
:1945 Author Organization [facility] Address [address] [place] [address] Care Team Providers Name Role Phone Unavailable Primary Care Provider Unavailable Encounter Details Date Type Department Care Team Description 04/17/2011 Hospital Encounter [facility]X [facility] Nicki Holt, MAL, C.N.P., D. N.P. [address] [place] [address] (Wo rk) Social History Tobacco [...] Comments Blood Pressure 120/60 04/17/2011 6:00 PM STRATEGIC CLIENT EXECUTIVE Pulse 72 04/17/2011 6:00 PM STRATEGIC CLIENT EXECUTIVE Temperature - - Respiratory Rate 14 04/17/2011 6:00 PM STRATEGIC CLIENT EXECUTIVE Oxygen Saturation - - Inhaled Oxygen Concentration - - Weight - - Height - - Body Mass Index - - documented in this encounter Progress Notes Nicki Holt, D.N.P., C.N.P. - 04/17/2011 12:00 AM CST [id number] CHIEF COMPLAINT/REASON FOR VISIT 1. Sinus congestion. [...] understanding of the content. Nicki Holt D.N.P., FJairoN.Kvng /felix Electronically Signed By: NICKI HOLT DNP, FNP On: 04/21/2011 07:16 PM Source: [facility] [id number] Document Id: [id number] TEGIC CLIENT EXECUTIVE documented in this encounter Miscellaneous Notes Miscellaneous - Nicki Holt D.N.P., C.N.P. - 04/17/2011 6:34 PM STRATEGIC CLIENT EXECUTIVE Ambulatory Patient Summary [address] [address] Visit Information Name: ARCHIE BAZAN Current Date: 04/17/2011 18:34:16 Physicians Attending Provider: NICKI HOLT DNP, FNP [...] No Appointments found Your Goals/Additional instructions: Source: [facility] POWERCHART Document Id: [id number] TEGIC CLIENT EXECUTIVE Miscellaneous - Nicki Holt, D.N.P., C.N.P. - 04/17/2011 6:34 PM STRATEGIC CLIENT EXECUTIVE Ambulatory Depart Summary [address] [address] Visit Information Name: ARCHIE BAZAN Visit Date: 04/17/2011 18:34:15 Attending Provider: NICKI HOLT DNP, FNP Primary [...] clarification. Additional Information: Yes - . Source: [facility] POWERCHART Document Id: [id number] TEGIC CLIENT EXECUTIVE Miscellaneous - Yadira Lomeli, L.P.N. 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 Intake/History Entered On: 04/17/2011 18:05 STRATEGIC CLIENT EXECUTIVE Performed On: 04/17/2011 18:00 STRATEGIC CLIENT EXECUTIVE by YADIRA LOMELI Intake Chief Complaint : sores on her tongue and ST Temperature Core : 37.1C(Converted to: 98.8DegF) Peripheral Pulse Rate : 72/min Respiratory Rate : 14/min Heart Rhythm : Regular Systolic Blood Pressure : 120mmHg Diastolic Blood Pressure : 60mmHg NIBP Mean : 80mmHg BP Location : Right upper extremity Blood Pressure Cuff Size : Regular YADIRA LOMELI - 04/17/2011 18:00 STRATEGIC CLIENT EXECUTIVE Subjective Pain Symptoms : Yes YADIRA LOMELI 04/17/2011 18:00 STRATEGIC CLIENT EXECUTIVE Pain Pain Assessment Grid Pain 1 Location : Throat Intensity : 7 YADIRA LOMELI 04/17/2011 18:00 STRATEGIC CLIENT EXECUTIVE Dependent Habits Tobacco Use/Currently Using : No Exposure to Tobacco Smoke : Care provider denies smoking in home Smoking Status : Never smoker YADIRA LOMELI 04/17/2011 18:00 STRATEGIC CLIENT EXECUTIVE Caffeine Use Grid Caffeine Use : Current Type : Tea Frequency : Occasionally YADIRA LOMELI 04/17/2011 18:00 STRATEGIC CLIENT EXECUTIVE Recreational Drug Use Grid Drug Use : None YADIRA LOMELI 04/17/2011 18:00 STRATEGIC CLIENT EXECUTIVE Allergy Allergies (Active) azithromycin Estimated Onset Date: Unspecified ; Created By: PETRA RUSSELL LPN; Reaction Status: Active ; Category: Drug ; Substance: azithromycin ; Type: Allergy ; Updated By: PETRA RUSSELL LPN; Reviewed Date: 03/31/2011 8:34 STRATEGIC CLIENT EXECUTIVE Benicar Estimated Onset Date: Unspecified ; Created By: PETRA RUSSELL LPN; Reaction Status: Active ; Category: Drug ; Substance: Benicar ; Type: Allergy ; Updated By: PETRA RUSSELL LPN; Reviewed Date: 03/31/2011 8:34 STRATEGIC CLIENT EXECUTIVE Source: [facility] POWERCHART Document Id: [id number] STRATEGIC CLIENT EXECUTIVE!31 TEGIC CLIENT EXECUTIVE documented in this encounter Plan of Treatment Upcoming Encounters Date Type Specialty Care Team Description 12/26/2021 Office Visit Cardiovascular Disease Maritza Currie M.D. [address] [place] [phone] (Wo rk) 01/16/2022 Appointment Radiology Vignesh Curire M.D. [address] [place] [phone] (Wo rk) 01/16/2022 Appointment Cardiovascular Disease Maritza Currie M.D. [address] [place] [phone] (Wo rk) 01/16/2022 Appointment Radiology Vignesh Currie M.D. [address] [place] [phone] (Wo rk) 01/16/2022 Appointment Cardiovascular Disease Maritza Currie M.D. [address] [place] [phone] (Wo rk) documented as of this encounter Visit Diagnoses Not on filedocumented in this encounter
--- OUTSIDE RECORDS SUMMARY | 2021-12-10 15:11 | XMS_ITS | Encounter Summary ---
:1945 Author Organization [facility] Address [address] [place] [address] Care Team Providers Name Role Phone Unavailable Primary Care Provider Unavailable Encounter Details Date Type Department Care Team Description 10/04/2010 Hospital Encounter [facility] Nicki Anthony, MAL, C.N.P., D. N.P. [address] [place] [address] (Wo rk) Social History Tobacco [...] WILSON LPN - 10/04/2010 9:16 CDT Source: [facility] POWERCHART Document Id: [id number]!7 documented in this encounter Plan of Treatment Upcoming Encounters Date Type Specialty Care Team Description 12/26/2021 Office Visit Cardiovascular Disease Maritza Currie M.D. [address] [place] [phone] (Wo rk) 01/16/2022 Appointment Radiology Vignesh Currie M.D. [address] [place] [phone] (Wo rk) 01/16/2022 Appointment Cardiovascular Disease Maritza Currie M.D. [address] [place] [phone] (Wo rk) 01/16/2022 Appointment Radiology Vignesh Currie M.D. [address] [place] [phone] (Wo rk) 01/16/2022 Appointment Cardiovascular Disease Maritza Currie M.D. [address] [place] [phone] (Wo rk) documented as of this encounter Visit Diagnoses Not on filedocumented in this encounter
--- OUTSIDE RECORDS SUMMARY | 2021-12-10 15:11 | XMS_ITS | Encounter Summary ---
:1945 Author Organization [facility] Address [address] [place] [address] Care Team Providers Name Role Phone Unavailable Primary Care Provider Unavailable Encounter Details Date Type Department Care Team Description 04/26/[address] [facility] ED Julian Arias M.D. [id number] [place] [phone] (Wo rk) Social History Tobacco Use [...] Comments Blood Pressure 167/78 04/26/2011 7:31 PM LINE CLEARANCE FOREMAN Pulse 74 04/26/2011 7:31 PM LINE CLEARANCE FOREMAN Temperature - - Respiratory Rate 16 04/26/2011 7:31 PM LINE CLEARANCE FOREMAN Oxygen Saturation - - Inhaled Oxygen Concentration - - Weight 86 kg (189 lb 9.5 oz) 04/26/2011 7:31 PM LINE CLEARANCE FOREMAN Height - - Body Mass Index - - documented in this encounter Discharge Summaries David Fisher R.N. - 04/26/2011 11:07 PM CST ED Discharge Instructions [facility] [address] [place] [address] Name: MARCIAL BAZAN Date of : 1945 12:00 AM Visit Date: 04/26/2011 7:11 PM Address: [address] [place] [phone] Primary Care Provider: VICKEY HOLT DNP, CLINICAL STAFF PHARMACIST IMPORTANT: [facility] in [place] would like to thank you for allowing us to assist you with your healthcare needs. The following includes patient education materials and informationregarding your injury/illness. Chief Complaint: PAIN ON LEFT SIDE Follow-Up Instructions: With: Address: When: USE A STRAINER TO CATCH THE STONE AND SAVE FOR STONE ANALYSIS Within As Needed Comments: With: Address: When: VICKEY HOLT [address] [place] [address] Business (1) In 7 days 05/03/2011 Comments: Patient Education Materials: [id number] KIDNEY STONE (w/ colic) The sharp cramping [...] 8 hours and increasing bladder pressure ?? [phone] [employer], [address] [place] [address]. All rights reserved. This information is not [...] ride home with a responsible republican. I, MARCIAL BAZAN , or responsible republican have received this information and my questions havebeen answered. I have discussed any challenges I see with this plan with the nurse or physician. Patient Signature or Responsible Republican/Relationship Date/Time Provider Signature Date/Time Medication Reconciliation: Reconciliation [...] a ride home with a responsible republican. [place], MARCIAL BAZAN , or responsible republican have received this information and my questions havebeen answered. I have discussed any challenges I see with this plan with the nurse or physician. Patient Signature or Responsible Republican/Relationship Date/Time Provider Signature Date/Time This document has images extracted. Please consider using [employer] for all your patient education needs. Source: [facility] POWERCHART Document Id: [id number] CLEARANCE FOREMAN David Fisher R.N. - 04/26/2011 11:07 PM CST ED Depart Summary [facility] Emergency Department Clinical Discharge Summary PERSON INFORMATION Name MARCIAL BAZAN Age 65 Years 1945 12:00 AM Sex Female Language Faroese PCP VICKEY HOLT DNP, CLINICAL STAFF PHARMACIST Marital Status Visit Id Visit Reason PAIN ON LEFT SIDE Specialty Enc Type Emergency Med Service Emergency Medicine Referred by Track Group [facility] ED Discharge 04/26/2011 11:07 PM Tracking Id [id number] Checkout 04/26/2011 11:07 PM Checkin 04/26/2011 7:11 PM Acuity 4 -Less Urgent Dispo Type * Discharged to Home or Self Care Arrival 04/26/2011 7:11 PM Reg Status LOS 000 03:56 Address: [address] [place] [phone] Comment: PROVIDER INFORMATION Provider Role Provider Contact Time DAVID FISHER RN ED Nurse 04/26/11 19:31 JERMAN ARIAS MD ED Provider 04/26/11 19:51 DIAGNOSIS Urination painful; Colic*; Kidney stone NOS; Abdominal pain Comment: PATIENT EDUCATION INFORMATION Instructions: KIDNEY STONE w/ Colic Follow up: With: Address: When: USE A STRAINER TO CATCH THE STONE AND SAVE FOR STONE ANALYSIS Within As Needed Comments: With: Address: When: VICKEY HOLT [address] [place] [address] [facility] (1) In 7 days 05/03/2011 Comments: Source: [facility] POWERCHART Document Id: [id number] CLEARANCE FOREMAN documented in this encounter Nursing Notes David Fisher R.N. - 04/26/2011 10:47 PM CST ED Pain Assessment ED Pain Assessment Entered On: 04/26/2011 22:48 LINE CLEARANCE FOREMAN Performed On: 04/26/2011 22:47 LINE CLEARANCE FOREMAN by DAVID FISHER RN Pain Assessment Pain Symptoms : Yes Pain Medication Requested : Yes DAVID FISHER RN - 04/26/2011 22:47 LINE CLEARANCE FOREMAN Source: [facility] Local MattersCHART Document Id: [id number] LINE CLEARANCE FOREMAN!4 CLEARANCE FOREMAN David Fisher R.N. - 04/26/2011 7:31 PM CST ED Primary Assessment ED Primary Assessment Entered On: 04/26/2011 19:41 LINE CLEARANCE FOREMAN Performed On: 04/26/2011 19:31 LINE CLEARANCE FOREMAN by DAVID FISHER RN Reason For Visit Problems(Active) Anxiety disorder NOS Name of Problem: Anxiety disorder NOS ; Onset Date: 1987 ; Recorder: PETRA RUSSELL LPN; Confirmation: Confirmed ; Classification: Nursing ; Code: 1231 ; Contributor System: PowerChart ; Last Updated: 03/19/2010 16:21 LINE CLEARANCE FOREMAN ; Life Cycle Date: 03/19/2010 ; Life Cycle Status: Active ; Responsible Provider: PETRA RUSSELL LPN; Vocabulary: ICD-9-CM Hyperlipidemia/Dyslipidemia Name of Problem: Hyperlipidemia/Dyslipidemia ; Onset Date: 2004 ; Recorder: PETRA RUSSELL LPN; Confirmation: Confirmed ; Classification: Nursing ; Code: 1231 ; Contributor System: PowerChart ; Last Updated: 03/19/2010 16:15 LINE CLEARANCE FOREMAN ; Life Cycle Date: 03/19/2010 ; Life Cycle Status: Active ; Responsible Provider: PETRA RUSSELL LPN; Vocabulary: ICD-9-CM NIDDM [non-insulin dependent diabetes mellitus] Name of Problem: NIDDM [non- insulin dependent diabetes mellitus] ; Onset Date: 2007 ; Recorder: PETRA RUSSELL LPN; Confirmation: Confirmed ; Classification: Nursing ; Code: 1231 ; Contributor System: PowerChart ; Last Updated: 03/19/2010 16:14 LINE CLEARANCE FOREMAN ;Life Cycle Date: 03/19/2010 ; Life Cycle Status: Active ; Responsible Provider: PETRA RUSSELL LPN; Vocabulary: ICD-9-CM Osteoarthritis Name of Problem: Osteoarthritis ; Recorder: PETRA RUSSELL LPN; Confirmation: Confirmed ; Classification: Nursing ; Code: 1231 ; Contributor System: PowerChart ; Last Updated: 03/19/2010 16:17 LINE CLEARANCE FOREMAN ; Life Cycle Date: 03/19/2010 ; Life Cycle Status: Active ; Responsible Provider: PETRA RUSSELL LPN; Vocabulary: ICD-9-CM ; Comments: 01/07/2011 9:57 - VICKEY HOLT DNP, CLINICAL STAFF PHARMACIST date of onset unknown Osteoporosis NOS Name of Problem: Osteoporosis NOS ; Recorder: PETRA RUSSELL LPN; Confirmation:Confirmed ; Classification: Nursing ; Code: 1231 ; Contributor System: PowerChart ; Last Updated: 03/19/2010 16:17 LINE CLEARANCE FOREMAN ; Life Cycle Date: 03/19/2010 ; Life Cycle Status: Active ; Responsible Provider: PETRA RUSSELL LPN; Vocabulary: ICD-9-CM ; Comments: 01/07/2011 10:08 - VICKEY HOLT DNP, CLINICAL STAFF PHARMACIST date of onset unknown Rosacea Name of Problem: Rosacea ; Onset Date: 2006 ; Recorder: PETRA RUSSELL LPN; Confirmation: Confirmed ; Classification: Nursing ; Code: 1231 ; Contributor System: PowerChart ; Last Updated: 03/19/2010 16:18 LINE CLEARANCE FOREMAN ; Life Cycle Date: 03/19/2010 ; Life Cycle Status: Active ; Responsible Provider:PETRA RUSSELL LPN; Vocabulary: ICD-9-CM TIA [Transient ischemic attack] Name of Problem: TIA [Transient ischemic attack] ; Onset Date: 2007 ; Recorder: PETRA RUSSELL LPN; Confirmation: Confirmed ; Classification: Nursing ; Code: 1231 ; Contributor System: PowerChart ; Last Updated: 03/19/2010 16:19 LINE CLEARANCE FOREMAN ; Life Cycle Date: 03/19/2010 ; Life Cycle Status: Active ; Responsible Provider: PETRA RUSSELL LPN; Vocabulary: ICD-9-CM Diagnoses(Active) Urination painful Date: 04/26/2011 ; Diagnosis Type: Reason For Visit ; Confirmation: Complaint of ;Clinical Dx: Urination painful ; Classification: Medical ; Clinical Service: Emergency medicine ; Code: PNED ; Probability: 0 ; Diagnosis Code: [id number] Triage Chief Complaint Description : 65 yr bruno presents with possible UTI, admits to left flank reveles that radiates to the abdomen . Pt states she has had perineal pressure for 2 weeks or so . Information Given By : Patient Accompanied By : Spouse Mode of Arrival ED : Private vehicle Track : Medical Languages : Faroese Vital Signs Assessed : Yes DAVID FISHER RN - 04/26/2011 19:31 LINE CLEARANCE FOREMAN Vital Signs Temperature Core : 36.4C(Converted to: [...] 189.200lb DAVID FISHER RN - 04/26/2011 19:31 LINE CLEARANCE FOREMAN Pain Assessment Pain Symptoms : Yes DAVID FISHER RN - 04/26/2011 19:31 LINE CLEARANCE FOREMAN ED Physician Notification Time ED Physician Notification Time : 04/26/2011 19:36 LINE CLEARANCE FOREMAN DAVID FISHER RN - 04/26/2011 19:31 LINE CLEARANCE FOREMAN RASHEED RASHEED Level 1 : No RASHEED Level 2 : No RASHEED Level 3 : One DAVID FISHER RN - 04/26/2011 19:31 LINE CLEARANCE FOREMAN DCP GENERIC CODE Tracking Acuity : 4 -Less Urgent Tracking Group : [facility] ED DAVID FISHER RN - 04/26/2011 19:31 LINE CLEARANCE FOREMAN Allergy Latex Reaction : No Latex Hives/Itch : No Latex Congestion/Eye Irr/Breathing : No Latex Symptom Progression : No Latex Previous Test : No DAVID FISHER RN - 04/26/2011 19:31 LINE CLEARANCE FOREMAN Allergies (Active) azithromycin Estimated Onset Date: Unspecified ; Created By: PETRA RUSSELL LPN; Reaction Status: Active ; Category: Drug ; Substance: azithromycin ; Type: Allergy ; Updated By: PETRA RUSSELL LPN; Reviewed Date: 04/17/2011 18:05 LINE CLEARANCE FOREMAN Benicar Estimated Onset Date: Unspecified ; Created By: PETRA RUSSELL LPN; Reaction Status: Active ; Category: Drug ; Substance: Benicar ; Type: Allergy ; Updated By: PETRA RUSSELL LPN; Reviewed Date: 04/17/2011 18:05 LINE CLEARANCE FOREMAN ID Screen TB Symptoms Grid Bloody Sputum : No Fatigue : No Fever : No Loss of Appetite : No Night Sweats : No Persistent Cough Greater Than 3 Weeks : No Weight Loss : No DAVID FISHER RN - 04/26/2011 19:31 LINE CLEARANCE FOREMAN Alcohol and Drug Use : No Employee [...] No DAVID FISHER RN - 04/26/2011 19:31 LINE CLEARANCE FOREMAN Syndrome Surveillance Symptoms Grid Headache : No Illness With Generalized Rash : No Muscle Pain : No New or Worsening Cough : No Shortness of Breath : No Recent Exposure to Communicable Disease : No DAVID FISHER RN - 04/26/2011 19:31 LINE CLEARANCE FOREMAN Travel Within Last 14 Days : No DAVID FISHER RN - 04/26/2011 19:31 LINE CLEARANCE FOREMAN Immunizations Pneumovac : Last 5 years Influenza : This year DAVID FISHER RN - 04/26/2011 19:31 LINE CLEARANCE FOREMAN Respiratory Airway : Patent Respirations : Unlabored Respiratory Pattern : Regular DAVID FISHER RN - 04/26/2011 19:31 LINE CLEARANCE FOREMAN Cardiovascular Heart Rhythm : Regular Skin Color : Normal for ethnicity Skin Description : Dry Skin Temperature : Warm DAVID FISHER RN - 04/26/2011 19:31 LINE CLEARANCE FOREMAN Neurological Level of Consciousness : Alert Orientation : Oriented x 3 Characteristics of Speech : Appropriate for age DAVID FISHER RN - 04/26/2011 19:31 LINE CLEARANCE FOREMAN ED Psychosocial Affect/Behavior : Calm, Cooperative, Appropriate Domestic Abuse Concerns : None DAVID FISHER RN - 04/26/2011 19:31 LINE CLEARANCE FOREMAN Domestic Violence Screen Partner Emotional/Physical Abuse Hx : No DAVID FISHER RN - 04/26/2011 19:31 LINE CLEARANCE FOREMAN Gastrointestinal Nutrition ED : Adequate DAVID FISHER RN - 04/26/2011 19:31 LINE CLEARANCE FOREMAN Musculoskeletal Fall Prevention Education Provided : NA DAVID FISHER RN - 04/26/2011 19:31 LINE CLEARANCE FOREMAN Social Habits Tobacco Use/Currently Using : No Tobacco Use/Advised to Quit : No Exposure to Tobacco Smoke : Care provider denies smoking in home Smoking Status : Never smoker DAVID FISHER RN - 04/26/2011 19:31 LINE CLEARANCE FOREMAN Alcohol Use Grid Alcohol Use : No DAVID FISHER RN - 04/26/2011 19:31 LINE CLEARANCE FOREMAN Recreational Drug Use Grid Drug Use : None DAVID FISHER RN - 04/26/2011 19:31 LINE CLEARANCE FOREMAN Source: [facility] Local MattersCHART Document Id: [id number] LINE CLEARANCE FOREMAN!102 CLEARANCE FOREMAN documented in this encounter ED Notes David Fisher R.N. - 04/26/2011 11:00 PM CST ED Treatments and Procedures ED Treatments and Procedures Entered On: 04/26/2011 23:33 LINE CLEARANCE FOREMAN Performed On: 04/26/2011 23:00 LINE CLEARANCE FOREMAN by DAVID FISHER RN Peripheral IV Peripheral IV Assess/Intervention Grid Peripheral IV #1 IV Activity : Discontinue Number of Attempts : 1 Date of Insertion : 04/26/2011 LINE CLEARANCE FOREMAN IV Site : Hand Laterality : Left Catheter Size : 18 Catheter Type : Protective DAVID FISHER RN - 04/26/2011 23:32 LINE CLEARANCE FOREMAN Source: [facility] Local MattersCHART Document Id: [id number] LINE CLEARANCE FOREMAN!11 CLEARANCE FOREMAN David Fisher R.N. - 04/26/2011 10:47 PM CST ED Disposition Summary ED Disposition Summary Entered On: 04/26/2011 22:47 LINE CLEARANCE FOREMAN Performed On: 04/26/2011 22:47 LINE CLEARANCE FOREMAN by DAVID FISHER RN ED Disposition Summary Accompanied By : Spouse Mode of Discharge : Ambulatory Transportation : Private vehicle Printed Discharge Instructions Given to Patient : Yes DAVID FISHER RN - 04/26/2011 22:47 LINE CLEARANCE FOREMAN Source: [facility] Local MattersCHART Document Id: [id number] LINE CLEARANCE FOREMAN!6 CLEARANCE FOREMAN David Fisher R.N. - 04/26/2011 9:25 PM CST ED Treatments and Procedures ED Treatments and Procedures Entered On: 04/26/2011 23:32 LINE CLEARANCE FOREMAN Performed On: 04/26/2011 21:25 LINE CLEARANCE FOREMAN by VAISAHLI, DAVID M RN Peripheral IV Peripheral IV Assess/Intervention Grid Peripheral IV #1 IV Activity : Start Number of Attempts : 1 Date of Insertion : 04/26/2011 LINE CLEARANCE FOREMAN IV Site : Hand Laterality : Left Catheter Size : 18 Catheter Type : Protective Site Condition : No complications Drainage Description : None DAVID FISHER RN - 04/26/2011 23:31 LINE CLEARANCE FOREMAN Source: [facility] Local MattersCHART Document Id: [id number] LINE CLEARANCE FOREMAN!13 CLEARANCE FOREMAN Jerman Arias M.D. - 04/26/2011 7:51 PM CST Urination painful Patient: MARCIAL BAZAN Age: 65 years Sex: Female : 1945 Author: JERMAN ARIAS MD Attachments: None Associated Diagnosis: Abdominal pain Basic Information Additional information:: Chief Complaint from Nursing Triage Note : Chief Complaint Description. 04/26/2011 19:31 LINE CLEARANCE FOREMAN Chief Complaint Description 65 yr bruno presents [...] or recorded. Surgical history: Surgical history. Colonoscopy ([id number]) in 2008 at 63 Years. Comments: 09/18/2010 09:23 - JOHN CONCEPCION LPN WNL Biopsy of breast ([id number]) in 1986 at 40 Years. Comments: 09/24/2010 11:37 - VICKEY HOLT DNP, CLINICAL STAFF PHARMACIST date unknown Appendectomy ([id number]) in 1959 at 14 Years. History of repair of umbilical hernia ([id number]). Comments: 03/19/2010 16:22 - PETRA RUSSELL LPN Times two 1997, 2000 section ([id number]). Comments: 03/19/2010 16:23 - PETRA RUSSELL LPN [...] Examination Vital signs: Vital Signs, 04/26/2011 19:31 LINE CLEARANCE FOREMAN Temperature Core 36.4 C LOW Peripheral Pulse Rate 74 /min Respiratory Rate 16 /min SpO2 100 % Systolic Blood Pressure 167 mmHg >HHI Diastolic Blood Pressure 78 mmHg Mean Arterial Pressure 108 mmHg Measurements, 04/26/2011 19:31 LINE CLEARANCE FOREMAN Actual Weight 86 kg Oxygen saturation Oxygen Therapy & Oxygenation Information. 04/26/2011 19:31 LINE CLEARANCE FOREMAN Oxygen Therapy Room air Oxygen Saturation Monitoring [...] if Indicated (Order Processing): Stat, 04/26/2011 19:52 LINE CLEARANCE FOREMAN, Once, Urine, Clean Void UrineLaunch Orders, Laboratory: Amylase Level (Order Processing): Stat, 04/26/2011 20:03 LINE CLEARANCE FOREMAN, Once, Blood Comprehensive Metabolic Panel (Order Processing): Stat, 04/26/2011 20:03 LINE CLEARANCE FOREMAN, Once, Blood CBC (includes Auto Differential) (Order Processing): Stat, 04/26/2011 20:03 LINE CLEARANCE FOREMAN, Once, BloodLaunch Orders, Radiology: XR Abdomen 2 Views (Order Processing): 04/26/2011 20:03 LINE CLEARANCE FOREMAN, PAIN LEFT FLANK AND PELVIC PRESSURE, Stat, Patient Bed, OnceLaunch Orders, Radiology: CT Abdomen/Pelvis w/ contrast (Order Processing): 04/26/2011 20:51 LINE CLEARANCE FOREMAN, ABDOMINAL AND PELVIC PAIN RULE OUT ACUETE DIVERTICULITIS, Stat, Patient Bed, OnceLaunch Orders. Pharmacy: ketorolac (Order Processing): 30 mg, IV Push, Once Results review:Lab results : Lab View. 04/26/2011 20:00 LINE CLEARANCE FOREMAN [facility]UA Source. 04/26/2011 20:15 LINE CLEARANCE FOREMAN Hgb 11.0 g/dL LOW Hct 32.9 % LOW WBC 11.3 x10(9)/L HI RBC 3.67 x10(9)/L LOW MCV 90 fL RDW 13.5 % Platelet 207 x10(9)/L Neutro % 75.3 % Lymph % 16.1 % LOW [place]ne % 6.1 % Eos % 2.1 % Baso % 0.4 % Neutro Absolute 8.50 10(9)/L HI Lymph Absolute 1.82 x10(9)/L [place] Absolute 0.69 x10(9)/L Eos Absolute 0.24 x10(9)/L [...] Hgb A1c 7.49 % HI 04/26/2011 20:00 LINE CLEARANCE FOREMAN UA Color Yellow UA Spec Grav >=1.030 [...] from flowsheet : Vital Signs, 04/26/2011 19:31 LINE CLEARANCE FOREMAN Temperature Core 36.4 C LOW Peripheral Pulse [...] document has images extracted. Source: [facility] POWERCHART Document Id: [id number]} CLEARANCE FOREMAN documented in this encounter Miscellaneous Notes Miscellaneous - David Fisher RJairoN. - 04/26/2011 10:48 PM CST Valuables/Belongings Valuables/Belongings Entered On: 04/26/2011 22:48 LINE CLEARANCE FOREMAN Performed On: 04/26/2011 22:48 LINE CLEARANCE FOREMAN by DAVID FISHER RN Valuables/Belongings Home Medication Disposition : None brought in with patient DAVID FISHER RN - 04/26/2011 22:48 LINE CLEARANCE FOREMAN Source: [facility] Notifixious Document Id: [id number] LINE CLEARANCE FOREMAN!3 CLEARANCE FOREMAN Miscellaneous - David Fisher R.N. - 04/26/2011 7:11 PM CST Facility Charge Ticket Facility Charge Ticket Entered On: 04/26/2011 22:49 LINE CLEARANCE FOREMAN Performed On: 04/26/2011 19:11 LINE CLEARANCE FOREMAN by DAVID FISHER RN Facility Charge TVL Level for Facility Charge Ticket : Level 4 [place] Total Points with Diagnosis Control : 11 [place] Visit Level : 25598 Level 4 ANIRUDH MOREL - 05/12/2011 17:29 CDT Mode of Arrival ED : Private vehicle [place] Mode of Arrival Interpreted : Standard [facility] Process Management : None [facility] Order Management : CT/MRI/Ultrasound, Xray - plain films, Lab tests 30 Minutes Critical Care : No [place] Nursing Assessment : Triage and 1-2 nursing assessments [facility] Disposition : Discharge DAVID FISHER RN - 04/26/2011 22:49 LINE CLEARANCE FOREMAN Chief Complaint 8.50.02 Reason For Visit Category : Genitourinary ED Chief Complaint Genitourinary 8.5 : Flank pain TVL Calc : 12 TVL for Facility Charge Ticket Dx : Level 4 DAVID FISHER RN - 04/26/2011 22:49 LINE CLEARANCE FOREMAN Source: [facility] [employer]ious Document Id: [id number] CDT!5 documented in this encounter Plan of Treatment Upcoming Encounters Date Type Specialty Care Team Description 12/26/2021 Office Visit Cardiovascular Disease Maritza Currie M.D. [address] [place] [address] [phone] ([place]) 01/16/2022 Appointment Radiology Vignesh Currie M.D. [address] [place] [address] [phone] ([place]) 01/16/2022 Appointment Cardiovascular Disease Maritza Currie M.D. [address] [place] [address] [phone] ([place]) 01/16/2022 Appointment Radiology Vignesh Currie M.D. [address] [place] [address] [phone] ([place]) 01/16/2022 Appointment Cardiovascular Disease Maritza Currie M.D. [address] [place] [address] [phone] ([place]) documented as of this encounter Procedures Procedure Name Priority Date/Time Associated Comments Diagnosis AUTOMATED Routine 04/26/2011 8:15 PM Results f or this DIFFERENTIAL, B LINE CLEARANCE FOREMAN procedure ar e in the results section. CBC WITH DIFFERENTIAL, Routine 04/26/2011 8:15 PM Results for this B LINE CLEARANCE FOREMAN procedure are i n the results section. HEMOGLOBIN A1C, B Routine 04/26/2011 8:15 PM Resu lts for this LINE CLEARANCE FOREMAN procedure are i n the results section. AMYLASE, TOT, S Routine 04/26/2011 8:15 PM Result s for this LINE CLEARANCE FOREMAN procedure are i n the results section. COMPREHENSIVE Routine 04/26/2011 8:15 PM Results for this METABOLIC PANEL, S/P LINE CLEARANCE FOREMAN procedu re are in the results section. URINALYSIS, ROUTINE Routine 04/26/2011 8:00 PM Re sults for this LINE CLEARANCE FOREMAN procedure are i n the results section. documented in this encounter Results (ABNORMAL) Automated Differential (04/26/2011 8:15 PM LINE CLEARANCE FOREMAN) Between Digital gist Method Time Signature Neutro % 75.3 42.0 - POWERCHART 77.0 Lymphocytes % 16.1 (L) 23.0 - POWERCHART 44.0 HX Duchesne % 6.1 2.0 - 11.0 POWERCHART HX [...] Laterality Blood 04/26/2011 8:15 PM 2 8:15 LINE CLEARANCE FOREMAN PM LINE CLEARANCE FOREMAN Jerman Arias M.D. LAB BLOOD ADD-ON Performing Organization Address City/State/ZIP Code Phon e Number POWERCHART (ABNORMAL) CBC with Differential (04/26/2011 8:15 PM LINE CLEARANCE FOREMAN) Between Digital gist Method Time Signature Leukocytes 11.3 (H) [...] / Volume Laterality Blood 04/26/2011 8:15 PM LINE CLEARANCE FOREMAN Jerman Arias M.D. LAB BLOOD ADD-ON Performing Organization Address City/State/ZIP Code Phon e Number POWERCHART (ABNORMAL) Hemoglobin A1c (04/26/2011 8:15 PM LINE CLEARANCE FOREMAN) Analysis Performed At Patho logist Time Signature Hemoglobin A1c, 7.49 (H) 4.00 - POWERCHART B 6.00 Specimen (Source) Anatomical Collection Method Collection Time Re ceived Time Location / / Volume Laterality Blood 04/26/2011 8:15 PM LINE CLEARANCE FOREMAN Jerman Arias M.D. LAB BLOOD ADD-ON Performing Organization Address City/[facility]/ZIP Code Phon e Number POWERCHART Amylase, Total (04/26/2011 8:15 PM LINE CLEARANCE FOREMAN) P athologist Signature Amylase, Total, 48 25 - 115 UL POWERCHART S Specimen (Source) Anatomical Collection Method Collection Time Re ceived Time Location / / Volume Laterality Blood 04/26/2011 8:15 PM LINE CLEARANCE FOREMAN Jerman Arias M.D. LAB BLOOD ADD-ON Performing Organization Address City/State/ZIP Code Phon e Number POWERCHART (ABNORMAL) CMP (Comprehensive Metabolic Panel) (04/26/2011 8:15 PM LINE CLEARANCE FOREMAN) Patholo gist Method Time Signature Alanine 18 [...] POWERCHART MMOLL HXeGFR (MDRD) 53 <=61 POWERCHART [id number] Comment: A GFR of <60 mL/min [...] / Volume Laterality Blood 04/26/2011 8:15 PM LINE CLEARANCE FOREMAN Jerman Arias M.D. LAB BLOOD ADD-ON Performing Organization Address City/State/ZIP Code Phon e Number POWERCHART Urinalysis, Routine (04/26/2011 8:00 PM LINE CLEARANCE FOREMAN) [facility] Method Time Signature HXUr Color Yellow POWERCHART Appearance Clear POWERCHART Glucose Negative POWERCHART HXBILIRUBIN Negative POWERCHART Ketones, QL(U) Trace POWERCHART Specific >=1.030 1.000 - POWERCHART [place], POCT, U 1.030 pH, POCT, Urine 5.0 5.0 - 8.0 POWERCHART Protein, Ur, Dip Negative POWERCHART Urobilinogen 0.2 POWERCHART HXNITRITE Negative POWERCHART HXBLOOD Negative POWERCHART Leukocyte Negative POWERCHART Esterase Source Clean Void POWERCHART Urine Specimen (Source) Anatomical Collection Method Collection Time Re ceived Time Location / / Volume Laterality Urine 04/26/2011 8:00 PM LINE CLEARANCE FOREMAN Jerman Arias M.D. LAB URINE ORDERABLES Performing Organization Address City/State/ZIP Code Phon e Number POWERCHART documented in this encounter Visit Diagnoses Not on filedocumented in this encounter
--- OUTSIDE RECORDS SUMMARY | 2021-12-10 15:11 | XMS_ITS | Encounter Summary ---
:1945 Author Organization [facility] Address [address] [place] [address] Care Team Providers Name Role Phone Unavailable Primary Care Provider Unavailable Encounter Details Date Type Department Care Team Description 03/31/2011 Hospital Encounter HX [facility] Nicki Holt, MAL, Deana.N.P., D. N.P. [address] [place] [address] (Wo rk) Social History Tobacco [...] Comments Blood Pressure 126/62 03/31/2011 8:32 AM AUTOMATION CONTROL TECHNICIAN Pulse 64 03/31/2011 8:32 AM AUTOMATION CONTROL TECHNICIAN Temperature - - Respiratory Rate 18 03/31/2011 8:32 AM AUTOMATION CONTROL TECHNICIAN Oxygen Saturation - - Inhaled Oxygen Concentration - - Weight 88.9 kg (195 lb 15.8 oz) 03/31/2011 8:32 AM AUTOMATION CONTROL TECHNICIAN Height - - Body Mass Index - - documented in this encounter Progress Notes Nicki Holt, Maritza.N.P., C.N.P. - 03/31/2011 12:00 AM CST [id number] CHIEF COMPLAINT/REASON FOR VISIT Sinus congestion. HISTORY [...] has been taking some Mucinex and Sudafed [id number] as directed on package on an as [...] DNP, FNP On: 04/01/2011 03:01 PM Source: [facility] MHSDOLBEYNONRADSYS Document Id: [id number] MATION CONTROL TECHNICIAN documented in this encounter Miscellaneous Notes Miscellaneous - Nicki Holt D.N.P., C.N.P. - 03/31/2011 8:47 AM AUTOMATION CONTROL TECHNICIAN Ambulatory Patient Summary [address] [address] Visit Information Name: ARCHIE BAZAN Current Date: [...] No Appointments found Your Goals/Additional instructions: Source: [facility] POWERCHART Document Id: [id number] MATION CONTROL TECHNICIAN Miscellaneous - Nicki Holt, D.N.P., C.N.P. - 03/31/2011 8:47 AM AUTOMATION CONTROL TECHNICIAN Ambulatory Depart Summary [address] [address] Visit Information Name: ARCHIE BAZAN Current Date: [...] to the patient and/or family, guardian/caregiver. Source: [facility] POWERCHART Document Id: [id number] MATION CONTROL TECHNICIAN Miscellaneous - Diaan Cardoza L.P.N. - 03/31/2011 8:34 AM CST Health Assessment Health Assessment Entered On: 03/31/2011 8:34 AUTOMATION CONTROL TECHNICIAN Performed On: 03/31/2011 8:34 AUTOMATION CONTROL TECHNICIAN by DIANA CARDOZA LPN Health Assessment Complete Health Assessment Complete or Modified : Annual Health Assessment Annual Health Assessment Completed : Yes DIANA CARDOZA LPN - 03/31/2011 8:34 AUTOMATION CONTROL TECHNICIAN Nutrition Nutrition Risk Factors by History Adult : None DIANA CARDOZA LPN - 03/31/2011 8:34 AUTOMATION CONTROL TECHNICIAN Functional Current Daily Living Assistance : None DIANA CARDOZA LPN - 03/31/2011 8:34 AUTOMATION CONTROL TECHNICIAN Dependent Habits Tobacco Use/Currently Using : No Tobacco Use/Last 12 months : No Tobacco Use/Advised to Quit : No Exposure to Tobacco Smoke : Care provider denies smoking in home Smoking Status : Never smoker DIANA CARDOZA LPN - 03/31/2011 8:34 AUTOMATION CONTROL TECHNICIAN Caffeine Use Grid Caffeine Use : Current Type : Tea Frequency : Occasionally DIANA CARDOZA LPN - 03/31/2011 8:34 AUTOMATION CONTROL TECHNICIAN Recreational Drug Use Grid Drug Use : None DIANA CARDOZA LPN - 03/31/2011 8:34 AUTOMATION CONTROL TECHNICIAN Psychosocial Domestic Abuse Concerns : None DIANA CARDOZA LPN - 03/31/2011 8:34 AUTOMATION CONTROL TECHNICIAN Advance Directive Advanced Directives : No DIANA CARDOZA LPN - 03/31/2011 8:34 AUTOMATION CONTROL TECHNICIAN Educ Needs Learning Style Preference Adult Grid Patient : None Family : None DIANA CARDOZA LPN - 03/31/2011 8:34 AUTOMATION CONTROL TECHNICIAN Source: [facility] POWERCHART Document Id: [id number] AUTOMATION CONTROL TECHNICIAN!30 MATION CONTROL TECHNICIAN Miscellaneous - Diana Cardoza L.P.N. 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 Stained Glass Window Designer Intake/History Entered On: 03/31/2011 8:34 AUTOMATION CONTROL TECHNICIAN Performed On: 03/31/2011 8:32 AUTOMATION CONTROL TECHNICIAN by DIANA CARDOZA LPN Intake Chief Complaint [...] Dosing Weight Clinic : 88.90kg DIANA CARDOZA LPN - 03/31/2011 8:32 AUTOMATION CONTROL TECHNICIAN Subjective Pain Symptoms : Yes DIANA CARDOZA LPN - 03/31/2011 8:32 AUTOMATION CONTROL TECHNICIAN Pain Pain Assessment Grid Pain 1 Location : Throat DIANA CARDOZA LPN - 03/31/2011 8:32 AUTOMATION CONTROL TECHNICIAN Dependent Habits Tobacco Use/Currently Using : No Tobacco Use/Last 12 months : No Tobacco Use/Advised to Quit : No Exposure to Tobacco Smoke : Care provider denies smoking in home Smoking Status : Never smoker DIANA CARDOZA LPN - 03/31/2011 8:32 AUTOMATION CONTROL TECHNICIAN Caffeine Use Grid Caffeine Use : Current Type : Tea Frequency : Occasionally DIANA CARDOZA LPN - 03/31/2011 8:32 AUTOMATION CONTROL TECHNICIAN Recreational Drug Use Grid Drug Use : None DIANA CARDOZA LPN - 03/31/2011 8:32 AUTOMATION CONTROL TECHNICIAN Allergy Allergies (Active) azithromycin Estimated Onset Date: Unspecified ; Created By: PETRA RUSSELL LPN; Reaction Status: Active ; Category: Drug ; Substance: azithromycin ; Type: Allergy ; Updated By: PETRA RUSSELL LPN; Reviewed Date: 01/16/2011 9:05 AUTOMATION CONTROL TECHNICIAN Benicar Estimated Onset Date: Unspecified ; Created By: PETRA RUSSELL LPN; Reaction Status: Active ; Category: Drug ; Substance: Benicar ; Type: Allergy ; Updated By: PETRA RUSSELL LPN; Reviewed Date: 01/16/2011 9:05 AUTOMATION CONTROL TECHNICIAN Source: [facility] [employer] Document Id: [id number] AUTOMATION CONTROL TECHNICIAN!35 MATION CONTROL TECHNICIAN documented in this encounter Plan of Treatment Upcoming Encounters Date Type Specialty Care Team Description 12/26/2021 Office Visit Cardiovascular Disease Maritza Currie M.D. [address] [place] [phone] ([place]) 01/16/2022 Appointment Radiology Vignesh Currie M.D. [address] [place] [phone] ([place]) 01/16/2022 Appointment Cardiovascular Disease Maritza Currie M.D. [address] [place] [phone] ([place]) 01/16/2022 Appointment Radiology Vignesh Currie M.D. [address] [place] [phone] ([place]) 01/16/2022 Appointment Cardiovascular Disease Maritza Currie M.D. [address] [place] [address] [place] [phone] (Wo rk) documented as of this encounter Visit Diagnoses Not on filedocumented in this encounter
--- OUTSIDE RECORDS SUMMARY | 2021-12-10 15:11 | XMS_ITS | Encounter Summary ---
:1945 Author Organization [facility] Address [address] [place] [address] Care Team Providers Name Role Phone Unavailable Primary Care Provider Unavailable Encounter Details Date Type Department Care Team Description 09/23/2010 Hospital Encounter HX [facility] Vickey Holt, MAL, Deana.N.P., D. N.P. [address] [place] [address] (Wo rk) Social History Tobacco [...] as of this encounter Progress Notes Vickey Holt, Maritza.N.P., C.N.P. - 09/23/2010 12:00 AM CDT [id number] CHIEF COMPLAINT/REASON FOR VISIT Lightheadedness. HISTORY OF [...] acute distress. HEAD: Normocephalic/atraumatic. PUPILS: GENE. OROPHARYNX: [place] and moist. TMs: Bilateral TMs are clear, [...] Signed By: VICKEY HOLT DNP, FNP On: 09/30/2010 03:36 PM Source: [facility] Document Id: [id number] documented in this encounter Miscellaneous Notes Miscellaneous - Vickey Holt D.N.P., C.N.P. - 09/24/2010 5:24 PM CDT Results Notification Document Contains Addenda Addendum by RAMONITA GUILLERMO LPN on 24 September 2010 17:47:23 CDT letter sent From: VICKEY HOLT DNP, FNP To: RAMONITA GUILLERMO LPN Sent: 09/24/2010 17:24:54 CDT ! Show up: 09/24/2010 17:24:00 CDT Subject: Results Notification Actions: Notify patient of results Due Date/Time: 09/24/2010 17:24:00 CDT Source: [facility] POWERCHART Document Id: [id number] Miscellaneous - Vickey Holt, Maritza.N.P., C.N.P. - 09/23/2010 4:37 PM CDT Ambulatory Patient Summary [address] [address] Visit Information Name: MARCIAL BAZAN Current Date: 09/23/2010 16:37:11 Primary Care Provider: VICKEY HOLT [facility] Your Medications Here is a list of [...] No Appointments found Your Goals/Additional instructions: Source: [facility] [employer] Document Id: [id number] Miscellaneous - Vickey Holt D.N.P., C.N.P. - 09/23/2010 4:37 PM CDT Ambulatory Depart Summary [id number] [place] [address] Visit Information Name: MARCIAL BAZAN Current Date: 09/23/2010 16:37:10 Primary Care Provider: VICKEY HOLT [facility] MARCIAL BAZAN has been given the following [...] to the patient and/or family, guardian/caregiver. Source: [facility] POWERCHART Document Id: [id number] Miscellaneous - Conversion, Historical Provider Ser - 09/23/2010 3:54 PM CDT Ambulatory Vitals Height Weight Ambulatory Vitals Height Weight Entered On: 09/23/2010 15:54 CDT Performed On: 09/23/2010 15:54 CDT by RAMONITA GUILLERMO LPN Vitals/Ht/Wt Systolic Blood Pressure: 152mmHg (HI) Diastolic Blood Pressure: 74mmHg NIBP Mean: 100mmHg RAMONITA GUILLERMO LPN - 09/23/2010 15:54 CDT Source: [facility] Document Id: [id number] CDT!5 Miscellaneous - Conversion, Historical Provider Ser - 09/23/2010 3:49 PM CDT Adult Buffer Nickel Intake/History Adult Buffer Nickel Intake/History Entered On: 09/23/2010 15:53 CDT Performed [...] LPN; Reviewed Date: 09/23/2010 15:49 CDT [facility] Document Id: [id number] CDT!23 documented in this encounter Plan of Treatment Upcoming Encounters Date Type Specialty Care Team Description 12/26/2021 Office Visit Cardiovascular Disease Maritza Currie M.D. [address] [place] [phone] ([place]) 01/16/2022 Appointment Radiology Vignesh Currie M.D. [address] [place] [phone] ([place]) 01/16/2022 Appointment Cardiovascular Disease Maritza Currie M.D. [address] [place] [phone] ([place]) 01/16/2022 Appointment Radiology Vignesh Currie M.D. [address] [place] [phone] ([place]) 01/16/2022 Appointment Cardiovascular Disease Maritza Currie M.D. [address] [place] [phone] ([place]) documented as of this encounter Visit Diagnoses Not on filedocumented in this encounter
--- OUTSIDE RECORDS SUMMARY | 2021-12-10 15:11 | XMS_ITS | Encounter Summary ---
:1945 Author Organization [facility] Address [address] [place] [address] Care Team Providers Name Role Phone Unavailable Primary Care Provider Unavailable Encounter Details Date Type Department Care Team Description 10/16/2010 Hospital Encounter HX [facility] Nicki Holt, MAL, Deana.N.P., D.N.P. [address] [place], [place] [phone] (Wo rk) Social History [...] CDT Results Notification From: NICKI HOLT DNP, MANUFACTURED BUILDINGS REPAIRER To: RAMONITA GUILLERMO LPN Sent: 10/17/2010 16:22:43 CDT ! Show up: 10/17/2010 16:10:00 CDT Subject: Results Notification Actions: Notify patient of results Due Date/Time: 10/17/2010 16:10:00 CDT [facility] [employer]BE[employer] incCHART Document Id: [id number] documented in this encounter Plan of Treatment Upcoming Encounters Date Type Specialty Care Team Description 12/26/2021 Office Visit Cardiovascular Disease Maritza Currie M.D. [address] [place] [phone] ([place]) 01/16/2022 Appointment Radiology Vignesh Currie M.D. [address] [place] [phone] ([place]) 01/16/2022 Appointment Cardiovascular Disease Maritza Currie M.D. [address] [place] [phone] ([place]) 01/16/2022 Appointment Radiology Vignesh Currie M.D. [address] [place] [phone] ([place]) 01/16/2022 Appointment Cardiovascular Disease Maritza Currie M.D. [address] [place] [phone] (Wo rk) documented as of this encounter Visit Diagnoses Not on filedocumented in this encounter
--- OUTSIDE RECORDS SUMMARY | 2021-12-10 15:11 | XMS_ITS | Encounter Summary ---
:1945 Author Organization [facility] Address [address] [place] [address] Care Team Providers Name Role Phone Unavailable Primary Care Provider Unavailable Encounter Details Date Type Department Care Team Description 06/11/2010 Hospital Encounter HX [facility] ED Ralf Parker M.D. [address] [place], [place] [phone] (Wo rk) Social History [...] 06/11/2010 11:54 PM CDT ED Discharge Instructions [address] [address] Name: MARCIAL BAZAN Date of : 1945 12:[birth year] AM Visit Date: 06/11/2010 10:01 PM Address: [address] [place] [phone] Primary Care Provider: VICKEY HOLT DNP, HSE COORDINATOR IMPORTANT: [facility] would like to thank you for allowing us to assist you with your healthcare needs. The following includes patient education materials and information regarding your injury/illness. Follow-Up Instructions: With: Address: When: VICKEY HOLT [address] [place] [address] phone, [employer] (5) Within As Needed Comments: Patient Education Materials: [id number] CHEST WALL PAIN:COSTOCHONDRITIS The chest pain that [...] Fever over 100.0?? F (37.8?? C) ?? [phone] [employer], [address] [place] [address], [place] [address]. All rights reserved. This information is not [...] arrange a ride home with a responsible libertarian. I, MARCIAL BAZAN , or responsible libertarian have received this information and my questions havebeen answered. I have discussed any challenges I see with this plan with the nurse or physician. Patient Signature or Responsible Alliance Party Date/Time Provider Signature Date/Time Medication Reconciliation: Reconciliation is a process of identifying the most accurate list of all medications a patient is taking - including name, dosage, frequency, and route - and using this list to provide to the patient information about how to take those medications. MARCIAL BAZAN or morrisee has reviewed the home medications you have [...] arrange a ride home with a responsible libertarian. IBENI LURENE MURIEL , or responsible libertarian have received this information and my questions havebeen answered. I have discussed any challenges I see with this plan with the nurse or physician. Patient Signature or Responsible Alliance Party Date/Time Provider Signature Date/Time This document has images extracted. Please consider using [employer] for all your patient education needs. Source: [facility] Portable ZooCHART Document Id: [id number] Conversion, Historical Provider Ser - 06/11/2010 11:54 PM CDT ED Depart Summary [facility] Emergency Department Clinical Discharge Summary PERSON INFORMATION Name MARCIAL BAZAN Age 65 Years 1945 12:00 AM Sex Female Language Tunisian PCP VICKEY HOLT DNP, HSE COORDINATOR Marital Status [facility] [id number] Visit Id Visit Reason Chest pain; Chest pain; chest pain Specialty Enc Type Emergency Med Service Emergency Medicine Referred by Track Group [facility] ED Discharge 06/11/2010 11:54 PM Tracking Id [id number] Checkout 06/11/2010 11:54 PM Checkin 06/11/2010 10:01 PM Acuity 3 -Urgent Dispo Type Discharged to Home or Self Care Arrival 06/11/2010 10:01 PM Reg Status LOS 000 01:53 Address: [address] [place] [phone] Comment: PROVIDER INFORMATION DIAGNOSIS Costochondritis 733.6 Comment: PATIENT EDUCATION INFORMATION Instructions: CHEST WALL PAIN, Costochondritis Follow up: With: Address: When: VICKEY HOLT [address] [place] [address] phone, [employer] (1) Within As Needed Comments: Source: [employer] Document Id: [id number] documented in this encounter Nursing Notes Conversion, Historical Provider Ser - 06/11/2010 11:01 PM CDT pain fluctuation Chest discomfort developed this evening while watching tv at home, rated 4/10. States pain increases with deep inhalation and with movement. Skin warm, dry pink [facility]: [facility] Document Id: [id number] Conversion, Historical Provider Ser - 06/11/2010 10:51 PM CDT ED Pain Assessment ED Pain Assessment Entered On: 06/11/2010 22:53 CDT Performed On: 06/11/2010 22:51 CDT by EMMA MCKEON RN Pain Pain Assessment Grid Pain 1 Location: Chest Acceptable Intensity: 3 Aggravating Factors: Movement EMMA MCKEON RN - 06/11/2010 22:51 CDT Source: [facility] [place] Document Id: [id number] CDT!7 Conversion, Historical Provider Ser - 06/11/2010 10:25 PM CDT ED Primary Assessment ED Primary Assessment Entered On: 06/11/2010 22:27 CDT Performed On: 06/11/2010 22:25 CDT by EMMA MCKEON RN Reason For Visit Problems(Active) Anxiety disorder NOS Name of Problem: Anxiety disorder NOS ; Onset Date: 1987 ; Recorder: PETRA RUSSELL LPN; Confirmation: Confirmed ; Classification: Nursing ; Code: 1231 ; Contributor System: zEconomyChart ; Last Updated: 03/19/2010 10:21 SENIOR NET DEVELOPER ; Life Cycle Date: 03/19/2010 ; Life Cycle Status: Active ; Responsible Provider: PETRA RUSSELL LPN; Vocabulary: ICD-9-CM Hyperlipidemia/Dyslipidemia Name of Problem: Hyperlipidemia/Dyslipidemia ; Onset Date: 2004 ; Recorder: PETRA RUSSELL LPN; Confirmation: Confirmed ; Classification: Nursing ; Code: 1231 ; Contributor System: PowerChart ; Last Updated: 03/19/2010 10:15 SENIOR NET DEVELOPER ; Life Cycle Date: 03/19/2010 ; Life Cycle Status: Active ; Responsible Provider: PETRA RUSSELL LPN; Vocabulary: ICD-9-CM NIDDM [non-insulin dependent diabetes mellitus] Name of Problem: NIDDM [non- insulin dependent diabetes mellitus] ; Onset Date: 2007 ; Recorder: PETRA RUSSELL LPN; Confirmation: Confirmed ; Classification: Nursing ; Code: 1231 ; Contributor System: PowerChart ; Last Updated: 03/19/2010 10:14 SENIOR NET DEVELOPER ;Life Cycle Date: 03/19/2010 ; Life Cycle Status: Active ; Responsible Provider: PETRA RUSSELL LPN; Vocabulary: ICD-9-CM Osteoarthritis Name of Problem: Osteoarthritis ; Recorder: PETRA RUSSELL LPN; Confirmation: Confirmed ; Classification: Nursing ; Code: 1231 ; Contributor System: PowerChart ; Last Updated: 03/19/2010 10:17 SENIOR NET DEVELOPER ; Life Cycle Date: 03/19/2010 ; Life Cycle Status: Active ; Responsible Provider: PETRA RUSSELL LPN; Vocabulary: ICD-9-CM Osteoporosis NOS Name of Problem: Osteoporosis NOS ; Recorder: PETRA RUSSELL LPN; Confirmation:Confirmed ; Classification: Nursing ; Code: 1231 ; Contributor System: PowerChart ; Last Updated: 03/19/2010 10:17 SENIOR NET DEVELOPER ; Life Cycle Date: 03/19/2010 ; Life Cycle Status: Active ; Responsible Provider: PETRA RUSSELL LPN; Vocabulary: ICD-9-CM Rosacea Name of Problem: Rosacea ; Onset Date: 2006 ; Recorder: PETRA RUSSELL LPN; Confirmation: Confirmed ; Classification: Nursing ; Code: 1231 ; Contributor System: PowerChart ; Last Updated: 03/19/2010 10:18 SENIOR NET DEVELOPER ; Life Cycle Date: 03/19/2010 ; Life Cycle Status: Active ; Responsible Provider:PETRA RUSSELL LPN; Vocabulary: ICD-9-CM TIA [Transient ischemic attack] Name of Problem: TIA [Transient ischemic attack] ; Onset Date: 2007 ; Recorder: PETRA RUSSELL LPN; Confirmation: Confirmed ; Classification: Nursing ; Code: 1231 ; Contributor System: PowerChart ; Last Updated: 03/19/2010 10:19 SENIOR NET DEVELOPER ; Life Cycle Date: 03/19/2010 ; Life Cycle Status: Active ; Responsible Provider: PETRA RUSSELL LPN; Vocabulary: ICD-9-CM Diagnoses(Active) Chest pain Date: 06/11/2010 22:06 CDT ; Diagnosis Type: Reason For Visit ; Confirmation: Complaint of ; Classification: Medical ; Clinical Service: Emergency medicine ; Code: PNED ; Probability: 0 ; Diagnosis Code: [id number] Triage Mode of Arrival ED: Private vehicle Track: Medical Languages: Tunisian Pain Symptoms: Yes Vital Signs Assessed: Yes [...] Level 1: No RASHEED Level 2: Yes EMMA MCKEON RN - 06/11/2010 22:25 CDT Allergy Allergies [...] Stated Symptoms: Chest pain Nail Bed Color: [place] Cardiac Rhythm: Sinus rhythm, PVC Ectopy Frequency: Occasional (4-8/min) Ectopic Pattern: Quadrageminy Edema: None Homans' Sign: Negative EMMA MCKEON RN - 06/11/2010 22:32 CDT Dorsalis Pedis [...] MCKEON RN - 06/11/2010 22:32 CDT Source: [facility] POWERCHART Document Id: [id number] CDT!72 documented in this encounter ED Notes Conversion, Historical Provider Ser - 06/11/2010 11:52 PM CDT ED Treatments and Procedures ED Treatments and Procedures Entered On: 06/11/2010 23:53 CDT Performed On: 06/11/2010 23:52 CDT by EMMA MCKEON RN Oxygen Therapy Oxygen Start Time: 06/11/2010 [...] MCKEON RN - 06/11/2010 23:52 CDT Source: [employer] Document Id: [id number] CDT!20 Conversion, Historical Provider Ser - 06/11/2010 [...] MCKEON RN - 06/11/2010 23:51 CDT Source: [employer] Document Id: [id number] CDT!7 Ralf Parker M.D. - 06/11/2010 10:20 PM CDT Chest Pain *ED Patient: MARCIAL BAZAN - CF MRN Age: 65 years [...] must include the following: Cholesterol, serum, total (64556), Lipoprotein, direct measurement, high density cholesterol (HDL cholesterol) (01697), Triglycerides (90111) (13225) in 2010 at 64 Years. Comments: 03/29/2010 09:40 - SHAHIDA PINEDO Hx: 17232 - LIPID PANEL Hemoglobin; glycosylated (A1C) (77962) in 2010 at 64 Years. Comments: 03/29/2010 09:40 - SHAHIDA PINEDO Hx: 94239 - GLYCATED HEMOGLOBIN Hemoglobin; glycosylated (A1C) (19345) in 2010 at 64 Years. Comments: 02/28/2010 16:47 - SHAHIDA PINEDO Hx: 36532 - GLYCATED HEMOGLOBIN Hemoglobin; glycosylated (A1C) (36489) in 2010 at 63 Years. Comments: 02/28/2010 16:47 - SHAHIDA PINEDO Hx: 30015 - GLYCATED HEMOGLOBIN Appendectomy ([id number]) in 1959 at 13 Years. History of repair of umbilical hernia ([id number]). Comments: 03/19/2010 16:22 - PETRA RUSSELL LPN Times two 1997, 2000 section ([id number]). Comments: 03/19/2010 16:23 - PETRA RUSSELL LPN Times Two 1964, 1968 Biopsy of breast ([id number]). Physical Examination Vital signs: Time 06/11/2010 22:32:00, [...] normal sinus rhythm, No ST-T changes, normal RI & QRS intervals. Results review:Lab results : [...] prescription, Patient indicated understanding of instructions. Source: [facility] POWERCHART Document Id: [id number]} documented in this encounter Miscellaneous Notes Miscellaneous - Conversion, Historical Provider Ser - 06/11/2010 11:51 PM CDT Valuables/Belongings Valuables/Belongings Entered On: 06/11/2010 23:51 CDT Performed On: 06/11/2010 23:51 CDT by EMMA MCKEON RN Valuables/Belongings Belongings Sent Home With: with patient EMMA MCKEON RN - 06/11/2010 23:51 CDT Source: [employer] Document Id: [id number] CDT!3 Miscellaneous - Conversion, Historical Provider Ser [...] with Diagnosis Control: 15 Lynx Visit Level: 43505 Level 5 EMMA MCKEON RN - 06/11/2010 23:51 CDT Chief Complaint 8.50.02 Reason For Visit Category: Cardiorespiratory ED Chief Complaint Cardiorespiratory 8.5: Chest pain TVL Ca TVL for Facility Charge Ticket Dx: Level 5 EMMA MCKEON RN - 06/11/2010 23:51 CDT Source: [employer] Document Id: [id number] CDT!17 documented in this encounter Plan of Treatment Upcoming Encounters Date Type Specialty Care Team Description 12/26/2021 Office Visit Cardiovascular Disease Maritza Currie M.D. [address] [place] [phone] (Wo rk) 01/16/2022 Appointment Radiology Vignesh Currie M.D. [address] [place] [phone] (Wo rk) 01/16/2022 Appointment Cardiovascular Disease Maritza Currie M.D. [address] [place] [phone] (Wo rk) 01/16/2022 Appointment Radiology Vignesh Currie M.D. [address] [place] [phone] (Wo rk) 01/16/2022 Appointment Cardiovascular Disease Maritza Currie M.D. [address] [place] [phone] (Wo rk) documented as of this encounter Visit Diagnoses Not on filedocumented in this encounter
--- OUTSIDE RECORDS SUMMARY | 2021-12-10 15:11 | XMS_ITS | Encounter Summary ---
:1945 Author Organization [facility] Address [address] [place] [address] Care Team Providers Name Role Phone Unavailable Primary Care Provider Unavailable Encounter Details Date Type Department Care Team Description 09/26/[address] [facility] Nicki Anthony, MAL, C.N.P., D. N.P. [address] [place] [address] ([place]) Social History Tobacco [...] Cardiovascular Disease Maritza Currie M.D. [address] [place] [phone] ([place]) 01/16/2022 Appointment Radiology Vignesh Currie M.D. [address] [place] [phone] ([place]) 01/16/2022 Appointment Cardiovascular Disease Maritza Currie M.D. [address] [place] [phone] ([place]) 01/16/2022 Appointment Radiology Vignesh Currie M.D. [address] [place], [place] [phone] (Wo rk) 01/16/2022 Appointment Cardiovascular Disease Maritza Currie M.D. [address] [place], [place] [phone] (Jean [place]) documented as of this encounter Visit Diagnoses Not on filedocumented in this encounter
--- OUTSIDE RECORDS SUMMARY | 2021-12-10 15:11 | XMS_ITS | Encounter Summary ---
:1945 Author Organization [facility] Address [address] [place] [address] Care Team Providers Name Role Phone Unavailable Primary Care Provider Unavailable Encounter Details Date Type Department Care Team Description 07/25/2010 Hospital Encounter HX [facility] Nicki Holt, MAL, C.N.P., D.N.P. [address] [place], [place] [phone] (Wo rk) Social History [...] CDT Letter sent. From: NICKI HOLT DNP, HVAC MANAGER To: VITALIY VILLEDA LPN Sent: 07/29/2010 09:47:31 CDT ! Show up: 07/29/2010 09:47:00 CDT Subject: Results Notification Actions: Notify patient of results Due Date/Time: 07/29/2010 09:47:00 CDT Source: [facility] POWERCHART Document Id: [id number] Electronically signed by Conversion, [facility] Right Of Way Appraiser [id number] at 07/20/2016 10:23 PM CDT documented in this encounter Plan of Treatment Upcoming Encounters Date Type Specialty Care Team Description 12/26/2021 Office Visit Cardiovascular Disease Maritza Currie M.D. [address] [place] [phone] (Wo rk) 01/16/2022 Appointment Radiology Vignesh Currie M.D. [address] [place] [phone] (Wo rk) 01/16/2022 Appointment Cardiovascular Disease Maritza Currie M.D. [address] [place] [phone] (Wo rk) 01/16/2022 Appointment Radiology Vignesh Currie M.D. [address] [place] [phone] (Wo rk) 01/16/2022 Appointment Cardiovascular Disease Maritza Currie M.D. [address] [place] [phone] (Wo rk) documented as of this encounter Visit Diagnoses Not on filedocumented in this encounter
--- OUTSIDE RECORDS SUMMARY | 2021-12-10 15:11 | XMS_ITS | Encounter Summary ---
:1945 Author Organization [facility] Address [address] [place] [address] Care Team Providers Name Role Phone Unavailable Primary Care Provider Unavailable Encounter Details Date Type Department Care Team Description 11/14/2010 Hospital Encounter HX NO MAPPING Tam Helm M.D. [address] [place], [place] [phone] (Wo rk) Social History [...] Helm M.D. - 11/14/2010 12:00 AM CDT ANGLECONBASSAM IMPRESSION/REPORT/PLAN Mrs. Adams seems to be doing [...] about 30 hours a week in a [employer]. VITAL SIGNS PULSE: 76 and regular BLOOD [...] HELM MD On: 11/21/2010 01:19 PM Source: [facility] MHSDOLBEYNONRADSYS Document Id: [id number] documented in this encounter Miscellaneous Notes Miscellaneous - Andrea Malhotra R.N. - 11/14/2010 2:45 PM CDT Adult Component Technician Intake/History Adult Component Technician Intake/History Entered On: 11/14/2010 14:53 CDT Performed On: 11/14/2010 14:45 CDT by ANDREA MALHOTRA warranty manager Chief Complaint: Here to establish care - [...] By: Patient Preferred Communication Mode: Verbal Languages: Canadian ANDREA MALHOTRA RN - 11/14/2010 14:45 CDT [...] MALHOTRA RN - 11/14/2010 14:45 CDT [facility] Document Id: [id number] CDT!72 documented in this encounter Plan of Treatment Upcoming Encounters Date Type Specialty Care Team Description 12/26/2021 Office Visit Cardiovascular Disease Maritza Currie M.D. [address] [place] [phone] (Wo rk) 01/16/2022 Appointment Radiology Vignesh Currie M.D. [address] [place] [phone] (Wo rk) 01/16/2022 Appointment Cardiovascular Disease Maritza Currie M.D. [address] [place] [phone] (Wo rk) 01/16/2022 Appointment Radiology Vignesh Currie M.D. [address] [place] [phone] (Wo rk) 01/16/2022 Appointment Cardiovascular Disease Maritza Currie M.D. [address] [place] [phone] (Wo rk) documented as of this encounter Visit Diagnoses Not on filedocumented in this encounter
--- OUTSIDE RECORDS SUMMARY | 2021-12-10 15:11 | XMS_ITS | Encounter Summary ---
:1945 Author Organization [facility] Address [address] [place] [address] Care Team Providers Name Role Phone Unavailable Primary Care Provider Unavailable Encounter Details Date Type Department Care Team Description 01/15/2011 Hospital Encounter HX [facility] Nicki Anthony, MAL, C.N.P., D.N.P. [address] [place], [place] [phone] ([place]) Social History [...] Visit Cardiovascular Disease Maritza Currie M.D. [address] [place], [place] [phone] ([place]) 01/16/2022 Appointment Radiology Vignesh Currie M.D. [address] [place] [phone] ([place]) 01/16/2022 Appointment Cardiovascular Disease Maritza Currie M.D. [address] [place] [phone] ([place]) 01/16/2022 Appointment Radiology Vignesh Currie M.D. [address] [place], [place] [phone] (Wo rk) 01/16/2022 Appointment Cardiovascular Disease Maritza Currie M.D. [address] [place], [place] [phone] ([place]) documented as of this encounter Visit Diagnoses Not on filedocumented in this encounter
--- OUTSIDE RECORDS SUMMARY | 2021-12-10 15:11 | XMS_ITS | Encounter Summary ---
:1945 Author Organization [facility] Address [address] [place] [address] Care Team Providers Name Role Phone Unavailable Primary Care Provider Unavailable Encounter Details Date Type Department Care Team Description 01/16/2011 Hospital Encounter HX [facility] Vickey Holt, MAL, Deana.N.P., D. N.P. [address] [place] [address] (Wo rk) Social History Tobacco [...] Maritza.N.P., C.N.P. - 01/16/2011 12:00 AM CST [id number] CHIEF COMPLAINT/REASON FOR VISIT 1. Routine physical. [...] x 3. HEAD: Normocephalic/atraumatic. PUPILS: GENE. OROPHARYNX: [place] and moist. TMs: Bilateral TMs are clear, [...] DNP, FNP On: 01/27/2011 11:30 AM Source: [facility] MHSDOLBEYNONRADSYS Document Id: [id number] AN documented in this encounter Miscellaneous Notes Miscellaneous - Vickey Holt D.N.Kvng, C.N.P. - 01/16/2011 9:11 PM BINMAN Ambulatory Patient Summary [id number] [place] [address] Visit Information Name: MARCIAL BAZAN Current Date: [...] No Appointments found Your Goals/Additional instructions: Source: [facility] POWERCHART Document Id: [id number] AN Miscellaneous - Vickey Holt, D.N.P., C.N.P. - 01/16/2011 9:11 PM B[facility]MAN Ambulatory Depart Summary [address] [place] [address] Visit Information Name: MARCIAL BAZAN Current Date: 01/16/2011 21:11:06 Primary Care Provider: VICKEY HOLT DNP, CHICKEN CATCHER MARCIAL BAZAN has been given the following [...] to the patient and/or family, guardian/caregiver. Source: [facility] POWERCHART Document Id: [id number] AN Miscellaneous - Vickey Holt, Maritza.N.P., C.N.P. - 01/16/2011 9:11 PM BINMAN Quality Measures Quality Measures Entered On: 01/16/2011 21:11 BINMAN Performed On: 01/16/2011 21:11 [facility]MAN by VICKEY HOLT DNP, FNP Diabetes Date of Last Foot Exam : 01/16/2011 BINMAN VICKEY HOLT DNP, FNP - 01/16/2011 21:11 BINMAN Foot Exam Grid Left foot exam Right foot exam Dorsalis Pedis Pulse : Normal Normal Post Tibial Pulse : Normal Normal Capillary Refill : Less than 3 seconds Less than 3 seconds 10 gm Monofilament Sensation Check : Intact Intact VICKEY HOLT DNP, [facility] - 01/16/2011 21:11 BINMAN VICKEY HOLT DNP, [facility] - 01/16/2011 21:11CST Source: [employer] Document Id: [id number] BINMAN!14 AN Miscellaneous - Sylvia Darnell LJairoP.N. - 01/16/2011 9:25 AM CST Health Assessment Health Assessment Entered On: 01/16/2011 9:25 BINMAN Performed On: 01/16/2011 9:25 [facility]MAN by SYLVIA DARNELL LPN Nutrition Nutrition Risk Factors by History Adult : None SYLVIA DARNELL LPN - 01/16/2011 9:25 BINMAN Functional Current Daily Living Assistance : None SYLVIA DARNELL LPN - 01/16/2011 9:25 BINMAN Dependent Habits Tobacco Use/Currently Using : No Exposure to Tobacco Smoke : Care provider denies smoking in home Smoking Status : Never smoker SYLVIA DARNELL LPN - 01/16/2011 9:25 BINMAN Caffeine Use Grid Caffeine Use : Current Type : Tea Frequency : Occasionally SYLVIA DARNELL LPN - 01/16/2011 9:25 BINMAN Recreational Drug Use Grid Drug Use : None SYLVIA DARNELL LPN - 01/16/2011 9:25 [facility]MAN Psychosocial Domestic Abuse Concerns : None SYLVIA DARNELL LPN - 01/16/2011 9:25 BINMAN Advance Directive Advanced Directives : No SYLVIA DARNELL LPN - 01/16/2011 9:25 BINMAN Educ Needs Learning Style Preference Adult Grid Patient : None Family : None SYLVIA DARNELL LPN - 01/16/2011 9:25 BINMAN [facility] Document Id: [id number] BINMAN!25 AN Miscellaneous - Sylvia Darnell L.P.N. - 01/16/2011 9:16 AM CST Adult Inset Cutter Intake/History Adult Inset Cutter Intake/History Entered On: 01/16/2011 9:24 BINMAN Performed On: 01/16/2011 9:16 [facility]MAN by SYLVIA DARNELL LPN Intake Chief Complaint [...] 90.20kg SYLVIA DARNELL LPN - 01/16/2011 9:16 [facility]MAN Subjective Pain Symptoms : No SYLVIA DARNELL LPN - 01/16/2011 9:16 BINMAN Dependent Habits Tobacco Use/Currently Using : No Tobacco Use/Last 12 months : No Exposure to Tobacco Smoke : Care provider denies smoking in home Smoking Status : Never smoker Alcohol Use : No SYLVIA DARNELL LPN - 01/16/2011 9:16 BINMAN Caffeine Use Grid Caffeine Use : Current Type : Tea Frequency : Occasionally SYLVIA DARNELL LPN - 01/16/2011 9:16 BINMAN Recreational Drug Use Grid Drug Use : None SYLVIA DARNELL LPN - 01/16/2011 9:16 BINMAN Allergy Allergies (Active) azithromycin Estimated Onset Date: Unspecified ; Created By: PETRA RUSSELL LPN; Reaction Status: Active ; Category: Drug ; Substance: azithromycin ; Type: Allergy ; Updated By: PETRA RUSSELL LPN; Reviewed Date: 01/16/2011 9:05 BINMAN Benicar Estimated Onset Date: Unspecified ; Created By: PETRA RUSSELL LPN; Reaction Status: Active ; Category: Drug ; Substance: Benicar ; Type: Allergy ; Updated By: PETRA RUSSELL LPN; Reviewed Date: 01/16/2011 9:05 BINMAN Source: [facility] POWERCHART Document Id: [id number] BINMAN!30 AN documented in this encounter Plan of Treatment Upcoming Encounters Date Type Specialty Care Team Description 12/26/2021 Office Visit Cardiovascular Disease Maritza Currie M.D. [address] [place] [address] [phone] (Wo rk) 01/16/2022 Appointment Radiology Vignesh Currie M.D. [address] [place] [address] [phone] (Wo rk) 01/16/2022 Appointment Cardiovascular Disease Maritza Currie M.D. [address] [place] [address] [phone] (Wo rk) 01/16/2022 Appointment Radiology Vignesh Currie M.D. [address] [place] [address] [phone] (Wo rk) 01/16/2022 Appointment Cardiovascular Disease Maritza Currie M.D. [address] [place] [address] [phone] (Wo rk) documented as of this encounter Procedures Procedure Name Priority Date/Time Associated Diagnosis Comme nts THINPREP SCREEN HPV Routine 01/16/2011 10:30 AM R esults for this REFLEX BINMAN procedure are i n the results section. documented in this encounter Results ThinPrep Screen HPV Reflex (01/16/2011 10:30 AM BINMAN) [facility] Time Signature Interpretation [id number] POWERCHART HXThPrep Scrn See Comment POWERCHART [facility] Comment: A. ??ThinPrep Pap Test Screen (Cervical/ Endocervical HPV Reflex): Satisfactory for evaluation. Negative for intraepithelial lesion or m alignancy. HXThPrep Scrn [facility] See Comment [facility]AIT [facility]IL[facility] Comment: Report electronically signed by BLANCA Pinto(ASCP) 01/20/2011 16:53 Interpreted by: BLANCA Pinto(ASCP) HX Spec [facility] See Comment POWERCHART Comment: A. ??ThinPrep Pap Test Screen (Cervical/ Endocervical HPV Reflex): Received cloudy specimen in ThinPrep via l. Test Performed by: [facility] Dpt of Lab Med and Pathology [address] [place] [address] Oceanologist: Donovan calderon III, M.D. Specimen (Source) Anatomical Collection Method Collection Time Re ceived Time Location / / Volume Laterality Cervix/Endocervix 01/16/2011 10:30 AM BINMAN Vickey Holt APRN, C.N.P., D.N.P. LAB PAP PATHDX ORDERABLES Performing Organization Address City/State/ZIP Code Phon e Number POWERCHART documented in this encounter Visit Diagnoses Not on filedocumented in this encounter
--- OUTSIDE RECORDS SUMMARY | 2021-12-10 15:11 | XMS_ITS | Encounter Summary ---
:1945 Author Organization [facility] Address [address] [place] [address] Care Team Providers Name Role Phone Unavailable Primary Care Provider Unavailable Encounter Details Date Type Department Care Team Description 01/07/2011 Hospital Encounter HX [facility] Nicki Holt, MAL, Deana.N.P., D. N.P. [address] [place] [address] (Wo rk) Social History [...] Maritza.N.P., C.N.P. - 01/07/2011 12:00 AM CST [id number] CHIEF COMPLAINT/REASON FOR VISIT Medication refills. HISTORY [...] occasionally and reports that she has used wdab-ljo-ysyxydr Vaseline and alcohol with no symptom improvement. [...] of the content. Nicki Holt D.N.P., [place].Kvng / Electronically Signed By: NICKI HOLT DNP, FNP On: 01/14/2011 07:48 PM Source: [facility]WORK[facility]OLBEYNONRADSYS Document Id: [id number] ION BUYER documented in this encounter Miscellaneous Notes Miscellaneous - Nicki Holt D.N.P., C.N.P. - 01/07/2011 8:41 AM FASHION BUYER Ambulatory Patient Summary [address] [address] Visit Information Name: ARCHIE BAZAN Current Date: [...] No Appointments found Your Goals/Additional instructions: Source: [facility] POWERCHART Document Id: [id number] ION BUYER Miscellaneous - Nicki Holt D.N.P., C.N.P. - 01/07/2011 8:41 AM FASHION BUYER Ambulatory Depart Summary [address] [address] Visit Information Name: ARCHIE BAZAN Current Date: 01/07/2011 08:41:08 Primary Care Provider: NICKI HOLT [facility], SECURITY ANALYST ARCHIE BAZAN has been given the following [...] to the patient and/or family, guardian/caregiver. Source: [facility] POWERCHART Document Id: [id number] ION BUYER Miscellaneous - Karla Woods L.P.N. - 01/07/2011 7:48 AM CST Adult Investor Intake/History Adult Investor Intake/History Entered On: 01/07/2011 7:51 FASHION BUYER Performed On: 01/07/2011 7:48 FASHION BUYER by KARLA WOODS LPN, RT Intake Chief [...] KARLA WOODS LPN, RT - 01/07/2011 7:48 FASHION BUYER General Info Information Given By : Patient Preferred Communication Mode : Verbal Languages : Malagasy KARLA WOODS LPN, RT - 01/07/2011 7:48 FASHION BUYER Subjective Pain Symptoms : No KARLA WOODS LPN, - 01/07/2011 7:48 FASHION BUYER Dependent Habits Tobacco Use/Currently Using : No Smoking Status : Never smoker Alcohol Use : No KARLA WOODS LPN, - 01/07/2011 7:48 FASHION BUYER Caffeine Use Grid Caffeine Use : Current Type : Tea Frequency : Occasionally KARLA WOODS LPN, RT - 01/07/2011 7:48 FASHION BUYER Recreational Drug Use Grid Drug Use : None KARLA WOODS LPN, - 01/07/2011 7:48 FASHION BUYER Allergy Allergies (Active) azithromycin Estimated Onset Date: [...] LPN; Reviewed Date: 11/14/2010 14:45 CDT Source: [facility] AutoESL Document Id: [id number] FASHION BUYER!33 ION BUYER documented in this encounter Plan of Treatment Upcoming Encounters Date Type Specialty Care Team Description 12/26/2021 Office Visit Cardiovascular Disease Maritza Currie M.D. [address] [place] [address] [phone] ([place]) 01/16/2022 Appointment Radiology Vignesh Currie M.D. [address] [place] [address] [phone] ([place]) 01/16/2022 Appointment Cardiovascular Disease Maritza Currie M.D. [address] [place] [address] [phone] ([place]) 01/16/2022 Appointment Radiology Vignesh Currie M.D. [address] [place] [address] [phone] ([place]) 01/16/2022 Appointment Cardiovascular Disease Maritza Currie M.D. [address] [place] [address] [phone] ([place]) documented as of this encounter Visit Diagnoses Not on filedocumented in this encounter
--- OUTSIDE RECORDS SUMMARY | 2021-12-10 15:11 | XMS_ITS | Encounter Summary ---
:[address] [facility] Address [address] [place] [address] Care Team Providers Name Role Phone Unavailable Primary Care Provider Unavailable Encounter Details Date Type Department Care Team Description 01/15/2011 Hospital Encounter HX [facility] Asha Ramon, MAL, C.N.P., D. N.P. [address] [place], [place] [phone] ([place]) Social History [...] Visit Cardiovascular Disease Maritza Currie M.D. [address] [place] [address] [phone] ([place]) 01/16/2022 Appointment Radiology Vignesh Currie M.D. [address] [place] [address] [phone] ([place]) 01/16/2022 Appointment Cardiovascular Disease Maritza Currie M.D. [address] [place] [address] [phone] ([place]) 01/16/2022 Appointment Radiology Vignesh Currie M.D. [address] [place], [place] [phone] (Wo rk) 01/16/2022 Appointment Cardiovascular Disease Maritza Currie M.D. [address] [place], [place] [phone] ([place]) documented as of this encounter Visit Diagnoses Not on filedocumented in this encounter
--- OUTSIDE RECORDS SUMMARY | 2021-12-10 15:11 | XMS_ITS | Encounter Summary ---
:1945 Author Organization [facility] Address [address] [place] [address] Care Team Providers Name Role Phone Unavailable Primary Care Provider Unavailable Encounter Details Date Type Department Care Team Description 10/16/2010 Hospital Encounter HX [facility] Nicki Anthony, MAL, C.N.P., D. N.P. [address] [place] [address] (Wo rk) Social History Tobacco [...] Notes Miscellaneous - Vitaliy Darnell, L.P.N. - 10/16/2010 8:40 AM CDT Ambulatory Vitals Height Weight Ambulatory Vitals Height Weight Entered On: 10/16/2010 8:41 CDT Performed On: 10/16/2010 8:40 CDT by VITALIY DARNELL LPN Vitals/Ht/Wt Peripheral Pulse Rate: 64/min Respiratory Rate: 16/min Systolic Blood Pressure: 116mmHg Diastolic Blood Pressure: 68mmHg NIBP Mean: 84mmHg BP Location: Right upper extremity VITALIY DARNELL LPN - 10/16/2010 8:40 CDT Source: [facility] POWERCHART Document Id: [id number] CDT!8 documented in this encounter Plan of Treatment Upcoming Encounters Date Type Specialty Care Team Description 12/26/2021 Office Visit Cardiovascular Disease Maritza Currie M.D. [address] [place] [address] [phone] (Wo rk) 01/16/2022 Appointment Radiology Vignesh Currie M.D. [address] [place] [address] [phone] (Wo rk) 01/16/2022 Appointment Cardiovascular Disease Maritza Currie M.D. [address] [place] [address] [phone] (Wo rk) 01/16/2022 Appointment Radiology Vignesh Currie M.D. [address] [place] [address] [phone] (Wo rk) 01/16/2022 Appointment Cardiovascular Disease Maritza Currie M.D. [address] [place] [address] [phone] (Wo rk) documented as of this encounter Visit Diagnoses Not on filedocumented in this encounter
--- OUTSIDE RECORDS SUMMARY | 2021-12-10 15:11 | XMS_ITS | Encounter Summary ---
:1945 Author Organization [facility] Address [address] [place] [address] Care Team Providers Name Role Phone Unavailable Primary Care Provider Unavailable Encounter Details Date Type Department Care Team Description 09/26/[address] [facility] Nicki Anthony, MAL, C.N.P., D. N.P. [address] [place] [address] ([place]) Social History Tobacco [...] Cardiovascular Disease Maritza Currie M.D. [address] [place] [phone] ([place]) 01/16/2022 Appointment Radiology Vignesh Currie M.D. [address] [place] [address] [phone] ([place]) 01/16/2022 Appointment Cardiovascular Disease Maritza Currie M.D. [address] [place] [address] [phone] ([place]) 01/16/2022 Appointment Radiology Vignesh Currie M.D. [address] [place], [place] [phone] (Wo rk) 01/16/2022 Appointment Cardiovascular Disease Maritza Currie M.D. [address] [place], [place] [phone] (Jean r[place]) documented as of this encounter Visit Diagnoses Not on filedocumented in this encounter
--- OUTSIDE RECORDS SUMMARY | 2021-12-10 15:12 | XMS_ITS | Encounter Summary ---
:1945 Author Organization [facility] Address [address] [place] [address] Care Team Providers Name Role Phone Unavailable Primary Care Provider Unavailable Encounter Details Date Type Department Care Team Description 01/03/2009 Hospital Encounter HX [facility] INPT/OBSRV Yady Vazquez M.D. [address] [place], [place] [phone] ([place]) Social History Tobacco Use Types [...] Visit Cardiovascular Disease Maritza Currie M.D. [address] [place], [place] [phone] ([place]) 01/16/2022 Appointment Radiology Vignesh Currie M.D. [address] [place] [address] [phone] ([place]) 01/16/2022 Appointment Cardiovascular Disease Maritza Currie M.D. [address] [place], [place] [phone] ([place]) 01/16/2022 Appointment Radiology Vignesh Currie M.D. [address] [place], [place] [phone] ([place]) 01/16/2022 Appointment Cardiovascular Disease Maritza Currie M.D. [address] [place], [place] [phone] ([place]) documented as of this encounter Visit Diagnoses Not on filedocumented in this encounter
--- OUTSIDE RECORDS SUMMARY | 2021-12-10 15:12 | XMS_ITS | Encounter Summary ---
:1945 Author Organization [facility] Address [address] [place] [address] Care Team Providers Name Role Phone Unavailable Primary Care Provider Unavailable Encounter Details Date Type Department Care Team Description 08/17/2007 Hospital Encounter [facility] INPT/OBSRV Yady Vazquez M.D. [address] [place], [place] [phone] ([place]) Social History Tobacco Use Types [...] Visit Cardiovascular Disease Maritza Currie M.D. [address] [place], [place] [phone] ([place]) 01/16/2022 Appointment Radiology Vignesh Currie M.D. [address] [place] [phone] ([place]) 01/16/2022 Appointment Cardiovascular Disease Maritza Currie M.D. [address] [place], [place] [phone] ([place]) 01/16/2022 Appointment Radiology Vignesh Currie M.D. [address] [place], [place] [phone] ([place]) 01/16/2022 Appointment Cardiovascular Disease Maritza Currie M.D. [address] [place], [place] [phone] ([place]) documented as of this encounter Visit Diagnoses Not on filedocumented in this encounter
--- OUTSIDE RECORDS SUMMARY | 2021-12-10 15:12 | XMS_ITS | Encounter Summary ---
:1945 Author Organization [facility] Address [address] [place] [address] Care Team Providers Name Role Phone Unavailable Primary Care Provider Unavailable Encounter Details Date Type Department Care Team Description 04/20/2008 Hospital Encounter [facility] INPT/OBSRV Yady Vazquez M.D. [address] [place], [place] [phone] ([place]) Social History Tobacco Use Types [...] Visit Cardiovascular Disease Maritza Currie M.D. [address] [place], [place] [phone] ([place]) 01/16/2022 Appointment Radiology Vignesh Currie M.D. [address] [place] [phone] ([place]) 01/16/2022 Appointment Cardiovascular Disease Maritza Currie M.D. [address] [place], [place] [phone] ([place]) 01/16/2022 Appointment Radiology Vignesh Currie M.D. [address] [place], [place] [phone] ([place]) 01/16/2022 Appointment Cardiovascular Disease Maritza Currie M.D. [address] [place], [place] [phone] ([place]) documented as of this encounter Visit Diagnoses Not on filedocumented in this encounter
--- OUTSIDE RECORDS SUMMARY | 2021-12-10 15:12 | XMS_ITS | Encounter Summary ---
:1945 Author Organization [facility] Address [address] [place] [address] Care Team Providers Name Role Phone Unavailable Primary Care Provider Unavailable Encounter Details Date Type Department Care Team Description 10/08/2009 Hospital Encounter [facility] Nicki Anthony, MAL, C.N.P., D.N.P. [address] [place] [address] ([place]) Social History Tobacco [...] Cardiovascular Disease Maritza Currie M.D. [address] [place] [phone] ([place]) 01/16/2022 Appointment Radiology Vignesh Currie M.D. [address] [place] [address] [phone] ([place]) 01/16/2022 Appointment Cardiovascular Disease Maritza Currie M.D. [address] [place] [phone] ([place]) 01/16/2022 Appointment Radiology Vignesh Currie M.D. [address] [place], [place] [phone] ([place]) 01/16/2022 Appointment Cardiovascular Disease Maritza Currie M.D. [address] [place], [place] [phone] ([place]) documented as of this encounter Visit Diagnoses Not on filedocumented in this encounter
--- OUTSIDE RECORDS SUMMARY | 2021-12-10 15:12 | XMS_ITS | Encounter Summary ---
:1945 Author Organization [facility] Address [address] [place] [address] Care Team Providers Name Role Phone Unavailable Primary Care Provider Unavailable Encounter Details Date Type Department Care Team Description 04/20/2009 Hospital Encounter [facility]X [facility] IN[facility] Jose Alberto Garcia M.D. [address] [place], [place] [address] ([place]) Social History Tobacco Use Types [...] Visit Cardiovascular Disease Maritza Currie M.D. [address] [place], [place] [phone] ([place]) 01/16/2022 Appointment Radiology Vignesh Currie M.D. [address] [place] [address] [phone] ([place]) 01/16/2022 Appointment Cardiovascular Disease Maritza Currie M.D. [address] [place], [place] [phone] ([place]) 01/16/2022 Appointment Radiology Vignesh Currie M.D. [address] [place], [place] [phone] ([place]) 01/16/2022 Appointment Cardiovascular Disease Maritza Currie M.D. [address] [place], [place] [phone] ([place]) documented as of this encounter Visit Diagnoses Not on filedocumented in this encounter
--- OUTSIDE RECORDS SUMMARY | 2021-12-10 15:12 | XMS_ITS | Encounter Summary ---
:1945 Author Organization [facility] Address [address] [place] [address] Care Team Providers Name Role Phone Unavailable Primary Care Provider Unavailable Encounter Details Date Type Department Care Team Description 02/07/2008 Hospital Encounter [facility] INPT/OBS[facility] Jermaine Yost P.A.-C. [address] [place] [address] ([place]) Social History Tobacco Use Types [...] Visit Cardiovascular Disease Maritza Currie M.D. [address] [place], [place] [phone] ([place]) 01/16/2022 Appointment Radiology Vignesh Currie M.D. [address] [place] [address] [phone] ([place]) 01/16/2022 Appointment Cardiovascular Disease Maritza Currie M.D. [address] [place], [place] [phone] ([place]) 01/16/2022 Appointment Radiology Vignesh Currie M.D. [address] [place], [place] [phone] (Wo rk) 01/16/2022 Appointment Cardiovascular Disease Maritza Currie M.D. [address] [place], [place] [phone] ([place]) documented as of this encounter Visit Diagnoses Not on filedocumented in this encounter
--- OUTSIDE RECORDS SUMMARY | 2021-12-10 15:12 | XMS_ITS | Encounter Summary ---
:1945 Author Organization [facility] Address [address] [place] [address] Care Team Providers Name Role Phone Unavailable Primary Care Provider Unavailable Encounter Details Date Type Department Care Team Description 04/20/[address] [facility] INPT/OBSRV Yady Vazquez M.D. [address] [place], [place] [phone] ([place]) Social History Tobacco Use Types [...] Visit Cardiovascular Disease Maritza Currie M.D. [address] [place], [place] [phone] ([place]) 01/16/2022 Appointment Radiology Vignesh Currie M.D. [address] [place] [address] [phone] ([place]) 01/16/2022 Appointment Cardiovascular Disease Maritza Currie M.D. [address] [place], [place] [phone] ([place]) 01/16/2022 Appointment Radiology Vignesh Currie M.D. [address] [place], [place] [phone] ([place]) 01/16/2022 Appointment Cardiovascular Disease Maritza Currie M.D. [address] [place], [place] [phone] ([place]) documented as of this encounter Visit Diagnoses Not on filedocumented in this encounter
--- OUTSIDE RECORDS SUMMARY | 2021-12-10 15:12 | XMS_ITS | Encounter Summary ---
:1945 Author Organization [facility] Address [address] [place] [address] Care Team Providers Name Role Phone Unavailable Primary Care Provider Unavailable Encounter Details Date Type Department Care Team Description 03/03/2008 Hospital Encounter HX [facility] INPT/OBSRV Jermaine Yost P.A.-C. [address] [place] [address] ([place]) Social History Tobacco [...] Visit Cardiovascular Disease Maritza Currie M.D. 200 [place], [place] [phone] ([place]) 01/16/2022 Appointment Radiology Vignesh Currie M.D. [address] [place] [phone] ([place]) 01/16/2022 Appointment Cardiovascular Disease Maritza Currie M.D. 200 [place], [place] [phone] ([place]) 01/16/2022 Appointment Radiology Vignesh Currie M.D. [address] [place], [place] [phone] (Wo rk) 01/16/2022 Appointment Cardiovascular Disease Maritza Currie M.D. [address] [place], [place] [phone] ([place]) documented as of this encounter Visit Diagnoses Not on filedocumented in this encounter
--- OUTSIDE RECORDS SUMMARY | 2021-12-10 15:12 | XMS_ITS | Encounter Summary ---
:1945 Author Organization [facility] Address [address] [place] [address] Care Team Providers Name Role Phone Unavailable Primary Care Provider Unavailable Encounter Details Date Type Department Care Team Description 05/25/2010 Hospital Encounter [facility] Nicki Holt, MAL, C.N.P., D.N.P. [address] [place], [place] [phone] (Wo rk) Social History [...] CDT Letter sent. From: NICKI HOLT DNP, TORCH SOLDERER To: RAMONITA GUILLERMO LPN Sent: 05/28/2010 19:57:24 CDT ! Show up: 05/28/2010 19:57:00 CDT Subject: Results Notification Actions: Notify patient of results Due Date/Time: 05/28/2010 19:57:00 CDT Source: [facility] POWERCHART Document Id: [id number] Electronically signed by Conversion, [facility] Chief Administrative Officer [id number] at 07/20/2016 11:20 AM CDT documented in this encounter Plan of Treatment Upcoming Encounters Date Type Specialty Care Team Description 12/26/2021 Office Visit Cardiovascular Disease Maritza Currie M.D. [address] [place] [phone] (Wo rk) 01/16/2022 Appointment Radiology Vignesh Currie M.D. [address] [place] [phone] (Wo rk) 01/16/2022 Appointment Cardiovascular Disease Maritza Currie M.D. [address] [place] [phone] (Wo rk) 01/16/2022 Appointment Radiology Vignesh Currie M.D. [address] [place] [address] [phone] (Wo rk) 01/16/2022 Appointment Cardiovascular Disease Maritza Currie M.D. [address] [place] [phone] (Wo rk) documented as of this encounter Visit Diagnoses Not on filedocumented in this encounter
--- OUTSIDE RECORDS SUMMARY | 2021-12-10 15:12 | XMS_ITS | Encounter Summary ---
:1945 Author Organization [facility] Address [address] [place] [address] Care Team Providers Name Role Phone Unavailable Primary Care Provider Unavailable Encounter Details Date Type Department Care Team Description 04/30/2007 Hospital Encounter [facility] INPT/OBSRV Yady Vazquez M.D. [address] [place], [place] [phone] ([place]) Social History Tobacco Use Types [...] Visit Cardiovascular Disease Maritza Currie M.D. [address] [place], [place] [phone] ([place]) 01/16/2022 Appointment Radiology Vignesh Currie M.D. [address] [place] [phone] ([place]) 01/16/2022 Appointment Cardiovascular Disease Maritza Currie M.D. [address] [place], [place] [phone] ([place]) 01/16/2022 Appointment Radiology Vignesh Currie M.D. [address] [place], [place] [phone] ([place]) 01/16/2022 Appointment Cardiovascular Disease Maritza Currie M.D. [address] [place], [place] [phone] ([place]) documented as of this encounter Visit Diagnoses Not on filedocumented in this encounter
--- OUTSIDE RECORDS SUMMARY | 2021-12-10 15:12 | XMS_ITS | Encounter Summary ---
:1945 Author Organization [facility] Address [address] [place] [address] Care Team Providers Name Role Phone [...] Cardiovascular Disease Maritza Currie M.D. [address] [place] [phone] ([place]) 01/16/2022 Appointment Radiology Vignesh Currie M.D. [address] [place] [phone] (Jean angeels) 01/16/2022 Appointment Cardiovascular Disease Maritza Currie M.D. [address] [place] [phone] (e[place] ang[place]) 01/16/2022 Appointment Radiology Vignesh Currie M.D. [address] [place] [phone] ([place]) 01/16/2022 Appointment Cardiovascular Disease Maritza Currie M.D. [address] [place], [place] [phone] (Wo rk) documented as of this encounter Visit Diagnoses Not on filedocumented in this encounter
--- OUTSIDE RECORDS SUMMARY | 2021-12-10 15:12 | XMS_ITS | Encounter Summary ---
:1945 Author Organization [facility] Address [address] [place] [address] Care Team Providers Name Role Phone Unavailable [...] Visit Cardiovascular Disease Maritza Currie M.D. [address] [place], [place] [phone] ([place]) 01/16/2022 Appointment Radiology Vignesh Currie M.D. [address] [place] [phone] ([place]) 01/16/2022 Appointment Cardiovascular Disease Maritza Currie M.D. [address] [place] [phone] ([place]) 01/16/2022 Appointment Radiology Vignesh Currie M.D. [address] [place] [phone] ([place]) 01/16/2022 Appointment Cardiovascular Disease Maritza Currie M.D. [address] [place], [place] [phone] (Wo rk) documented as of this encounter Visit Diagnoses Not on filedocumented in this encounter
--- OUTSIDE RECORDS SUMMARY | 2021-12-10 15:12 | XMS_ITS | Encounter Summary ---
:1945 Author Organization [facility] Address [address] [place] [address] Care Team Providers Name Role Phone Unavailable Primary Care Provider Unavailable Encounter Details Date Type Department Care Team Description 02/21/2010 Hospital Encounter HX [facility] INPT/OBSRV Jermaine Yost P.A.-C. [address] [place] [address] ([place]) Social History Tobacco [...] Visit Cardiovascular Disease Maritza Currie M.D. [address] [place], [place] [phone] ([place]) 01/16/2022 Appointment Radiology Vignesh Currie M.D. [address] [place] [phone] ([place]) 01/16/2022 Appointment Cardiovascular Disease Maritza Currie M.D. [address] [place], [place] [phone] ([place]) 01/16/2022 Appointment Radiology Vignesh Currie M.D. [address] [place], [place] [phone] (Wo rk) 01/16/2022 Appointment Cardiovascular Disease Maritza Currie M.D. [address] [place], [place] [phone] ([place]) documented as of this encounter Visit Diagnoses Not on filedocumented in this encounter
--- OUTSIDE RECORDS SUMMARY | 2021-12-10 15:12 | XMS_ITS | Encounter Summary ---
:1945 Author Organization [facility] Address [address] [place] [address] Care Team Providers Name Role Phone Unavailable Primary Care Provider Unavailable Encounter Details Date Type Department Care Team Description 12/20/2008 Hospital Encounter HX [facility] INPT/OBSRV Clarke Robledo M.D. Social History Tobacco [...] Visit Cardiovascular Disease Maritza Currie M.D. [address] [place], [place] [phone] ([place]) 01/16/2022 Appointment Radiology Vignesh Currie M.D. [address] [place] [phone] ([place]) 01/16/2022 Appointment Cardiovascular Disease Maritza Currie M.D. [address] [place] [phone] ([place]) 01/16/2022 Appointment Radiology Vignesh Currie M.D. [address] [place] [phone] ([place]) 01/16/2022 Appointment Cardiovascular Disease Maritza Currie M.D. [address] [place] [phone] (Wo rk) documented as of this encounter Visit Diagnoses Not on filedocumented in this encounter
--- OUTSIDE RECORDS SUMMARY | 2021-12-10 15:12 | XMS_ITS | Encounter Summary ---
:1945 Author Organization [facility] Address [address] [place] [address] Care Team Providers Name Role Phone Unavailable Primary Care Provider Unavailable Encounter Details Date Type Department Care Team Description 05/30/2010 Hospital Encounter HX [facility] Vickey Holt, MAL, C.N.P., D. N.P. [address] [place] [address] (Wo rk) Social History Tobacco [...] Progress Notes Vickey Holt, Maritza.N.P., C.N.P. - 05/30/2010 12:00 AM CDT [id number] CHIEF COMPLAINT/REASON FOR VISIT Follow-up lab results. [...] understanding of the content. Vickey Holt D.N.P., F.N.P. / Electronically Signed By: VICKEY HOLT DNP, FNP On: 06/03/2010 08:16 Source: [facility] Document Id: [id number] documented in this encounter Miscellaneous Notes Miscellaneous - Vickey Holt D.N.P., C.N.P. - 05/30/2010 8:21 PM CDT Results Notification Document Contains Addenda Addendum by JOHN CONCEPCION LPN on 03 June 2010 10:54:57 CDT Letter sent to patient. From: VICKEY HOLT DNP, FNP To: SYLVIA DARNELL LPN Sent: 05/30/2010 20:21:39 CDT ! Show up: 05/30/2010 20:21:00 CDT Subject: Results Notification Actions: Notify patient of results Due Date/Time: 05/30/2010 20:21:00 CDT Source: [facility] SproutBox Document Id: [id number] Miscellaneous - Vickey Holt, D.N.P., C.N.P. - 05/30/2010 5:24 PM CDT Ambulatory Patient Summary [facility] - [address] [address] Visit Information Name: MARCIAL BAZAN Current Date: 05/30/2010 17:24:54 Primary Care Provider: VICKEY HOLT DNP, FNP [...] Appointments found Your Goals/Additional instructions: Source: [facility] POWERCHART Document Id: [id number] Miscellaneous - Vickey Holt, Maritza.N.P., C.N.P. - 05/30/2010 5:24 PM CDT Ambulatory Depart Summary [facility] - [address] [address] Visit Information Name: MARCIAL BAZAN Current Date: 05/30/2010 17:24:54 Primary Care Provider: VICKEY HOLT [facility], BLEACHER OPERATOR BENI JOSE MIGUELPATRICK MAI has been [...] the patient and/or family, guardian/caregiver. Source: [facility] POWERCHART Document Id: [id number] Miscellaneous - Sylvia Darnell, L.P.N. - 05/30/2010 4:30 PM CDT Health Assessment Health Assessment Entered On: 05/30/2010 16:31 CDT Performed On: 05/30/2010 16:30 CDT by SYLVIA DARNELL LPN Nutrition Nutrition Risk Factors by History Adult: None SYLVIA DARNELL LPN - 05/30/2010 16:30 CDT Functional Current Daily Living Assistance: None SYLVIA DARNELL LPN - 05/30/2010 16:30 CDT Dependent Habits Tobacco Use/Currently Using: No SYLVIA DARNELL LPN - 05/30/2010 16:30 CDT Caffeine Use Grid Caffeine Use: Current Type: Tea Frequency: Occasionally SYLVIA DARNELL LPN - 05/30/2010 16:30 CDT Psychosocial Domestic Concerns: None SYLVIA DARNELL LPN - 05/30/2010 16:30 CDT Advance Directive Advanced Directives: No SYLVIA DARNELL LPN - 05/30/2010 16:30 CDT Educ Needs Learning Style Preference Adult Grid Patient: Printed materials Family: None SYLVIA DARNELL LPN - 05/30/2010 16:30 CDT [facility] Document Id: [id number] CDT!20 Miscellaneous - Sylvia Darnell L.P.N. 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 [employer] Engineer Intake/History Entered On: 05/30/2010 16:30 CDT Performed On: 05/30/2010 16:23 CDT by SYLVIA DARNELL LPN Intake Chief Complaint: Go over lab results Temperature Core: 36.2C(Converted to: 97.2DegF) (LOW) Peripheral Pulse Rate: 60/min Respiratory Rate: 16/min Systolic Blood Pressure: 116mmHg Diastolic Blood Pressure: 64mmHg NIBP Mean: 81mmHg BP Location: Right upper extremity Heart Rhythm: Regular Actual Weight: 88.100kg(Converted to: 194lb 4oz) Weight Source: Standing scale Dosing Weight Clinic: 88.10kg SYLVIA DARNELL DINAH - 05/30/2010 16:23 CDT Subjective Pain Symptoms: No SYLVIA DARNELL DINAH - 05/30/2010 16:23 CDT Dependent Habits Tobacco Use/Currently Using: No Tobacco Use/Last 12 months: No Alcohol Use: No SYLVIA DARNELL Justin NIX - 05/30/2010 16:23 CDT Caffeine Use Grid Caffeine Use: Current Type: Tea Frequency: Occasionally ASCENCIOALEJANDRO Anderson LPN - 05/30/2010 16:23 CDT Allergies Allergies (Active) azithromycin Estimated Onset Date: Unspecified ; Created By: PETRA RUSSELL LPN; Reaction Status: Active ; Category: Drug ; Substance: azithromycin ; Type: Allergy ; Updated By: PETRA RUSSELL LPN; Reviewed Date: 03/19/2010 10:42 FURNACE KEEPER Benicar Estimated Onset Date: Unspecified ; Created By: PETRA RUSSELL LPN; Reaction Status: Active ; Category: Drug ; Substance: Benicar ; Type: Allergy ; Updated By: PETRA RUSSELL LPN; Reviewed Date: 03/19/2010 10:40 FURNACE KEEPER Source: [employer] Document Id: [id number] CDT!25 documented in this encounter Plan of Treatment Upcoming Encounters Date Type Specialty Care Team Description 12/26/2021 Office Visit Cardiovascular Disease Maritza Currie M.D. 200 [place], [place] [phone] ([place]) 01/16/2022 Appointment Radiology Vignesh Currie M.D. [address] [place], [place] [phone] ([place]) 01/16/2022 Appointment Cardiovascular Disease Maritza Currie M.D. 200 [place], [place] [phone] ([place]) 01/16/2022 Appointment Radiology Vignesh Currie M.D. [address] [place], [place] [phone] ([place]) 01/16/2022 Appointment Cardiovascular Disease Maritza Currie M.D. [address] [place], [place] [phone] ([place]) documented as of this encounter Visit Diagnoses Not on filedocumented in this encounter
--- OUTSIDE RECORDS SUMMARY | 2021-12-10 15:12 | XMS_ITS | Encounter Summary ---
:[address] [facility] Address [address] [place] [address] Care Team Providers Name Role Phone Unavailable Primary Care Provider Unavailable Encounter Details Date Type Department Care Team Description 05/25/2010 Hospital Encounter [facility] Nicki Holt, MAL, C.N.P., D.N.P. [address] [place], [place] [phone] (Wo rk) Social History [...] taken care of. From: NICKI HOLT DNP, AERODYNAMICS PROFESSOR To: RAMONITA GUILLERMO LPN Sent: 05/28/2010 19:57:24 CDT ! Show up: 05/28/2010 19:57:00 CDT Subject: Results Notification Actions: Notify patient of results Due Date/Time: 05/28/2010 19:57:00 CDT Source: [facility] POWERCHART Document Id: [id number] Electronically signed by Conversion, [facility] Paper Bag Machine Operator [id number] at 07/20/2016 11:20 AM CDT documented in this encounter Plan of Treatment Upcoming Encounters Date Type Specialty Care Team Description 12/26/2021 Office Visit Cardiovascular Disease Maritza Currie M.D. [address] [place] [phone] (Wo rk) 01/16/2022 Appointment Radiology Vignesh Currie M.D. [address] [place] [phone] (Wo rk) 01/16/2022 Appointment Cardiovascular Disease Maritza Currie M.D. [address] [place] [phone] (Wo rk) 01/16/2022 Appointment Radiology Vignesh Currie M.D. [address] [place] [address] [phone] (Wo rk) 01/16/2022 Appointment Cardiovascular Disease Maritza Curire M.D. [address] [place] [phone] (Wo rk) documented as of this encounter Visit Diagnoses Not on filedocumented in this encounter
--- OUTSIDE RECORDS SUMMARY | 2021-12-10 15:12 | XMS_ITS | Encounter Summary ---
:1945 Author Organization [facility] Address [address] [place] [address] Care Team Providers Name Role Phone Unavailable Primary Care Provider Unavailable Encounter Details Date Type Department Care Team Description 01/25/2009 Hospital Encounter HX [facility] INPT/OBSRV Yady Vazquez M.D. [address] [place], [place] [phone] ([place]) Social History Tobacco Use Types [...] Visit Cardiovascular Disease Maritza Currie M.D. [address] [place], [place] [phone] ([place]) 01/16/2022 Appointment Radiology Vignesh Currie M.D. [address] [place] [phone] ([place]) 01/16/2022 Appointment Cardiovascular Disease Maritza Currie M.D. [address] [place], [place] [phone] ([place]) 01/16/2022 Appointment Radiology Vignesh Currie M.D. [address] [place], [place] [phone] ([place]) 01/16/2022 Appointment Cardiovascular Disease Maritza Currie M.D. [address] [place], [place] [phone] ([place]) documented as of this encounter Visit Diagnoses Not on filedocumented in this encounter
--- OUTSIDE RECORDS SUMMARY | 2021-12-10 15:12 | XMS_ITS | Encounter Summary ---
:1945 Author Organization [facility] Address [address] [place] [address] Care Team Providers Name Role Phone Unavailable Primary Care Provider Unavailable Encounter Details Date Type Department Care Team Description 04/17/2007 Hospital Encounter H[facility] INPT/OBSRV Yady Vazquez M.D. [address] [place], [place] [phone] ([place]) Social History Tobacco Use Types [...] Visit Cardiovascular Disease Maritza Currie M.D. [address] [place], [place] [phone] ([place]) 01/16/2022 Appointment Radiology Vignesh Currie M.D. [address] [place] [phone] ([place]) 01/16/2022 Appointment Cardiovascular Disease Maritza Currie M.D. [address] [place], [place] [phone] ([place]) 01/16/2022 Appointment Radiology Vignesh Currie M.D. [address] [place], [place] [phone] ([place]) 01/16/2022 Appointment Cardiovascular Disease Maritza Currie M.D. [address] [place], [place] [phone] ([place]) documented as of this encounter Visit Diagnoses Not on filedocumented in this encounter
--- OUTSIDE RECORDS SUMMARY | 2021-12-10 15:12 | XMS_ITS | Encounter Summary ---
:1945 Author Organization [facility] Address [address] [place] [address] Care Team Providers Name Role Phone Unavailable Primary Care Provider Unavailable Encounter Details Date Type Department Care Team Description 05/05/[address] [facility] INPT/OBSRV Yady Vazquez M.D. [address] [place], [place] [phone] ([place]) Social History Tobacco Use Types [...] Visit Cardiovascular Disease Maritza Currie M.D. [address] [place], [place] [phone] ([place]) 01/16/2022 Appointment Radiology Vignesh Currie M.D. [address] [place] [phone] ([place]) 01/16/2022 Appointment Cardiovascular Disease Maritza Currie M.D. [address] [place], [place] [phone] ([place]) 01/16/2022 Appointment Radiology Vignesh Currie M.D. [address] [place], [place] [phone] ([place]) 01/16/2022 Appointment Cardiovascular Disease Maritza Currie M.D. [address] [place], [place] [phone] ([place]) documented as of this encounter Visit Diagnoses Not on filedocumented in this encounter
--- OUTSIDE RECORDS SUMMARY | 2021-12-10 15:12 | XMS_ITS | Encounter Summary ---
:1945 Author Organization [facility] Address [address] [place] [address] Care Team Providers Name Role Phone Unavailable Primary Care Provider Unavailable Encounter Details Date Type Department Care Team Description 11/28/2008 Hospital Encounter [facility] INPT/OBSRV Yady Vazquez M.D. [address] [place], [place] [phone] ([place]) Social History Tobacco Use Types [...] Visit Cardiovascular Disease Maritza Currie M.D. [address] [place], [place] [phone] ([place]) 01/16/2022 Appointment Radiology Vignesh Currie M.D. [address] [place] [phone] ([place]) 01/16/2022 Appointment Cardiovascular Disease Maritza Currie M.D. [address] [place], [place] [phone] ([place]) 01/16/2022 Appointment Radiology Vignesh Currie M.D. [address] [place], [place] [phone] ([place]) 01/16/2022 Appointment Cardiovascular Disease Maritza Currie M.D. [address] [place], [place] [phone] ([place]) documented as of this encounter Visit Diagnoses Not on filedocumented in this encounter
--- OUTSIDE RECORDS SUMMARY | 2021-12-10 15:12 | XMS_ITS | Encounter Summary ---
:1945 Author Organization [facility] Address [address] [place] [address] Care Team Providers Name Role Phone Unavailable Primary Care Provider Unavailable Encounter Details Date Type Department Care Team Description 12/21/2009 Hospital Encounter [facility] INPT[facility]OBSRV Nicki Anthony, MAL, C.N.P., D.N.P. [address] [place] [address] ([place]) Social History Tobacco [...] Cardiovascular Disease Maritza Currie M.D. [address] [place] [phone] ([place]) 01/16/2022 Appointment Radiology Vignesh Currie M.D. [address] [place] [phone] ([place]) 01/16/2022 Appointment Cardiovascular Disease Maritza Currie M.D. [address] [place] [phone] ([place]) 01/16/2022 Appointment Radiology Vignesh Currie M.D. [address] [place], [place] [phone] (Wo karthik) 01/16/2022 Appointment Cardiovascular Disease Maritza Currie M.D. [address] [place], [place] [phone] ([place]) documented as of this encounter Visit Diagnoses Not on filedocumented in this encounter
--- OUTSIDE RECORDS SUMMARY | 2021-12-10 15:12 | XMS_ITS | Encounter Summary ---
:1945 Author Organization [facility] Address [address] [place] [address] Care Team Providers Name Role Phone Unavailable Primary Care Provider Unavailable Encounter Details Date Type Department Care Team Description 01/03/2009 Hospital Encounter HX [facility] INPT/OBSRV Clarke Robledo M.D. Social [...] Visit Cardiovascular Disease Maritza Currie M.D. 200 [place], [place] [phone] ([place]) 01/16/2022 Appointment Radiology Vignesh Currie M.D. [address] [place] [phone] ([place]) 01/16/2022 Appointment Cardiovascular Disease Maritza Currie M.D. [address] [place] [phone] ([place]) 01/16/2022 Appointment Radiology Vignesh Currie M.D. [address] [place] [phone] ([place]) 01/16/2022 Appointment Cardiovascular Disease Maritza Currie M.D. [address] [place] [phone] (Wo rk) documented as of this encounter Visit Diagnoses Not on filedocumented in this encounter
--- OUTSIDE RECORDS SUMMARY | 2021-12-10 15:12 | XMS_ITS | Encounter Summary ---
:1945 Author Organization [facility] Address [address] [place] [address] Care Team Providers Name Role Phone Unavailable Primary Care Provider Unavailable Encounter Details Date Type Department Care Team Description 07/30/2007 Hospital Encounter [facility] INPT/OBSRV Jose Alberto Garcia M.D. [address] [place], [place] [address] ([place]) Social History [...] Visit Cardiovascular Disease Maritza Currie M.D. 200 [place], [place] [phone] ([place]) 01/16/2022 Appointment Radiology Vignesh Currie M.D. [address] [place] [phone] ([place]) 01/16/2022 Appointment Cardiovascular Disease Maritza Currie M.D. 200 [place], [place] [phone] ([place]) 01/16/2022 Appointment Radiology Vignesh Currie M.D. [address] [place], [place] [phone] ([place]) 01/16/2022 Appointment Cardiovascular Disease Maritza Currie M.D. [address] [place], [place] [phone] ([place]) documented as of this encounter Visit Diagnoses Not on filedocumented in this encounter
--- OUTSIDE RECORDS SUMMARY | 2021-12-10 15:12 | XMS_ITS | Encounter Summary ---
:1945 Author Organization [facility] Address [address] [place] [address] Care Team Providers Name Role Phone Unavailable Primary Care Provider Unavailable Encounter Details Date Type Department Care Team Description 02/14/2010 Hospital Encounter [facility] INPT/OBSRV Nicki Anthony, MAL, C.N.P., D.N.P. [address] [place] [address] ([place]) Social History Tobacco [...] Cardiovascular Disease Maritza Currie M.D. [address] [place] [address] [phone] ([place]) 01/16/2022 Appointment Radiology Vignesh Currie M.D. [address] [place] [address] [phone] ([place]) 01/16/2022 Appointment Cardiovascular Disease Maritza Currie M.D. [address] [place] [address] [phone] ([place]) 01/16/2022 Appointment Radiology Vignesh Currie M.D. [address] [place], [place] [phone] (Wo karthik) 01/16/2022 Appointment Cardiovascular Disease Maritza Currie M.D. [address] [place], [place] [phone] ([place]) documented as of this encounter Visit Diagnoses Not on filedocumented in this encounter
--- OUTSIDE RECORDS SUMMARY | 2021-12-10 15:12 | XMS_ITS | Encounter Summary ---
:1945 Author Organization [facility] Address [address] [place] [address] Care Team Providers Name Role Phone Unavailable Primary Care Provider Unavailable Encounter Details Date Type Department Care Team Description 07/06/2007 Hospital Encounter [facility] INPT/OBSRV Yady Vazquez M.D. [address] [place], [place] [phone] ([place]) Social History Tobacco Use Types [...] Cardiovascular Disease Maritza Currie M.D. 200 [place], [place] [phone] ([place]) 01/16/2022 Appointment Radiology Vignesh Currie M.D. [address] [place] [address] [phone] ([place]) 01/16/2022 Appointment Cardiovascular Disease Maritza Currie M.D. [address] [place], [place] [phone] ([place]) 01/16/2022 Appointment Radiology Vignesh Currie M.D. [address] [place], [place] [phone] ([place]) 01/16/2022 Appointment Cardiovascular Disease Maritza Currie M.D. [address] [place], [place] [phone] ([place]) documented as of this encounter Visit Diagnoses Not on filedocumented in this encounter
--- OUTSIDE RECORDS SUMMARY | 2021-12-10 15:12 | XMS_ITS | Encounter Summary ---
:1945 Author Organization [facility] Address [address] [place] [address] Care Team Providers Name Role Phone Unavailable Primary Care Provider Unavailable Encounter Details Date Type Department Care Team Description 07/31/2009 Hospital Encounter [facility] INPT/OBSRV Nicki Anthony, MAL, C.N.P., D.N.P. [address] [place] [address] ([place]) Social History Tobacco [...] Visit Cardiovascular Disease Maritza Currie M.D. [address] [place] [address] [phone] ([place]) 01/16/2022 Appointment Radiology Vignesh Currie M.D. [address] [place] [address] [phone] ([place]) 01/16/2022 Appointment Cardiovascular Disease Maritza Currie M.D. [address] [place] [address] [phone] ([place]) 01/16/2022 Appointment Radiology Vignesh Currie M.D. [address] [place], [place] [phone] (Wo karthik) 01/16/2022 Appointment Cardiovascular Disease Maritza Currie M.D. [address] [place], [place] [phone] ([place]) documented as of this encounter Visit Diagnoses Not on filedocumented in this encounter
--- OUTSIDE RECORDS SUMMARY | 2021-12-10 15:12 | XMS_ITS | Encounter Summary ---
:1945 Author Organization [facility] Address [address] [place] [address] Care Team Providers Name Role Phone Unavailable Primary Care Provider Unavailable Encounter Details Date Type Department Care Team Description 10/30/2008 Hospital Encounter [facility] INPT/OBSRV Jose Alberto Garcia M.D. [address] [place], [place] [address] ([place]) Social History [...] Visit Cardiovascular Disease Maritza Currie M.D. [address] [place], [place] [phone] ([place]) 01/16/2022 Appointment Radiology Vignesh Currie M.D. [address] [place] [address] [phone] ([place]) 01/16/2022 Appointment Cardiovascular Disease Maritza Currie M.D. 200 [place], [place] [phone] ([place]) 01/16/2022 Appointment Radiology Vignesh Currie M.D. [address] [place], [place] [phone] ([place]) 01/16/2022 Appointment Cardiovascular Disease Maritza Currie M.D. [address] [place], [place] [phone] ([place]) documented as of this encounter Visit Diagnoses Not on filedocumented in this encounter
--- OUTSIDE RECORDS SUMMARY | 2021-12-10 15:12 | XMS_ITS | Encounter Summary ---
:1945 Author Organization [facility] Address [address] [place] [address] Care Team Providers Name Role Phone Unavailable Primary Care Provider Unavailable Encounter Details Date Type Department Care Team Description 02/23/2009 Hospital Encounter [facility] INTERNMED Steve Noel M.D. [address] [place] [phone] (Wo rk) Social History Tobacco Use Types [...] Noel M.D. 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 PCN/WDF/mp CC: Dr. Vazquez in [place] and Dr. Robledo. Source: [facility] Document Id: [id number] Electronically signed by Conversion, [facility] Wafer Fabrication Operator [id number] at 07/20/2016 7:24 AM CDT documented in this encounter Plan of Treatment Upcoming Encounters Date Type Specialty Care Team Description 12/26/2021 Office Visit Cardiovascular Disease Maritza Currie M.D. 200 [place], [place] [phone] ([place]) 01/16/2022 Appointment Radiology Vignesh Currie M.D. 200 [place], [place] [phone] ([place]) 01/16/2022 Appointment Cardiovascular Disease Maritza Currie M.D. [address] [place] [address] [phone] ([place]) 01/16/2022 Appointment Radiology Vignesh Currie M.D. [address] [place] [address] [phone] ([place]) 01/16/2022 Appointment Cardiovascular Disease Maritza Currie M.D. [address] [place], [place] [phone] (Wo rk) documented as of this encounter Visit Diagnoses Not on filedocumented in this encounter
--- OUTSIDE RECORDS SUMMARY | 2021-12-10 15:12 | XMS_ITS | Encounter Summary ---
:1945 Author Organization [facility] Address [address] [place] [address] Care Team Providers Name Role Phone Unavailable Primary Care Provider Unavailable Encounter Details Date Type Department Care Team Description 04/26/2007 Hospital Encounter [facility] INPT/OBSRV Yady Vazquez M.D. [address] [place], [place] [phone] ([place]) Social History Tobacco Use Types [...] Visit Cardiovascular Disease Maritza Currie M.D. 200 [place], [place] [phone] ([place]) 01/16/2022 Appointment Radiology Vignesh Currie M.D. [address] [place] [address] [phone] ([place]) 01/16/2022 Appointment Cardiovascular Disease Maritza Currie M.D. 200 [place], [place] [phone] ([place]) 01/16/2022 Appointment Radiology Vignesh Currie M.D. [address] [place], [place] [phone] ([place]) 01/16/2022 Appointment Cardiovascular Disease Maritza Currie M.D. [address] [place], [place] [phone] ([place]) documented as of this encounter Visit Diagnoses Not on filedocumented in this encounter
--- OUTSIDE RECORDS SUMMARY | 2021-12-10 15:12 | XMS_ITS | Encounter Summary ---
:1945 Author Organization [facility] Address [address] [place] [address] Care Team Providers Name Role Phone Unavailable Primary Care Provider Unavailable Encounter Details Date Type Department Care Team Description 04/21/2007 Hospital Encounter [facility] INPT/OBSRV Yady Vazquez M.D. [address] [place], [place] [phone] ([place]) Social History Tobacco Use Types [...] Visit Cardiovascular Disease Maritza Currie M.D. [address] [place], [place] [phone] ([place]) 01/16/2022 Appointment Radiology Vignesh Currie M.D. [address] [place] [address] [phone] ([place]) 01/16/2022 Appointment Cardiovascular Disease Maritza Currie M.D. [address] [place], [place] [phone] ([place]) 01/16/2022 Appointment Radiology Vignesh uCrrie M.D. [address] [place], [place] [phone] ([place]) 01/16/2022 Appointment Cardiovascular Disease Maritza Currie M.D. [address] [place], [place] [phone] ([place]) documented as of this encounter Visit Diagnoses Not on filedocumented in this encounter
--- OUTSIDE RECORDS SUMMARY | 2021-12-10 15:12 | XMS_ITS | Encounter Summary ---
:1945 Author Organization [facility] Address [address] [place] [address] Care Team Providers Name Role Phone Unavailable Primary Care Provider Unavailable Encounter Details Date Type Department Care Team Description 04/17/2007 Hospital Encounter [facility] INPT/OBSRV Yady Vazquez M.D. [address] [place], [place] [phone] ([place]) Social History Tobacco Use Types [...] Visit Cardiovascular Disease Maritza Currie M.D. 200 [place], [place] [phone] ([place]) 01/16/2022 Appointment Radiology Vignesh Currie M.D. [address] [place] [address] [phone] ([place]) 01/16/2022 Appointment Cardiovascular Disease Maritza Currie M.D. [address] [place], [place] [phone] ([place]) 01/16/2022 Appointment Radiology Vignesh Currie M.D. [address] [place], [place] [phone] ([place]) 01/16/2022 Appointment Cardiovascular Disease Maritza Currie M.D. [address] [place], [place] [phone] ([place]) documented as of this encounter Visit Diagnoses Not on filedocumented in this encounter
--- OUTSIDE RECORDS SUMMARY | 2021-12-10 15:12 | XMS_ITS | Encounter Summary ---
:1945 Author Organization [facility] Address [address] [place] [address] Care Team Providers Name Role Phone Unavailable Primary Care Provider Unavailable Encounter Details Date Type Department Care Team Description 04/01/2004 Hospital Encounter [facility] XRAY Provider, Histori joao Social History [...] Cardiovascular Disease Maritza Currie M.D. [address] [place] [address] [phone] ([place]) 01/16/2022 Appointment Radiology Vignesh Currie M.D. [address] [place] [address] [phone] ([place]) 01/16/2022 Appointment Cardiovascular Disease Maritza Currie M.D. [address] [place] [address] [phone] ([place]) 01/16/2022 Appointment Radiology Vignesh Currie M.D. [address] [place] [address] [phone] ([place]) 01/16/2022 Appointment Cardiovascular Disease Maritza Currie M.D. [address] [place], [place] [phone] (Wo rk) documented as of this encounter Visit Diagnoses Not on filedocumented in this encounter
--- OUTSIDE RECORDS SUMMARY | 2021-12-10 15:12 | XMS_ITS | Encounter Summary ---
:1945 Author Organization [facility] Address [address] [place] [address] Care Team Providers Name Role Phone Unavailable [...] Visit Cardiovascular Disease Maritza Currie M.D. [address] [place], [place] [phone] ([place]) 01/16/2022 Appointment Radiology Vignesh Currie M.D. [address] [place] [address] [phone] ([place]) 01/16/2022 Appointment Cardiovascular Disease Maritza Currie M.D. [address] [place] [address] [phone] ([place]) 01/16/2022 Appointment Radiology Vignesh Currie M.D. [address] [place] [address] [phone] ([place]) 01/16/2022 Appointment Cardiovascular Disease Maritza Currie M.D. [address] [place], [place] [phone] (Wo rk) documented as of this encounter Visit Diagnoses Not on filedocumented in this encounter
--- OUTSIDE RECORDS SUMMARY | 2021-12-10 15:13 | XMS_ITS | Encounter Summary ---
:1945 Author Organization [facility] Address [address] [place] [address] Care Team Providers Name Role Phone Unavailable Primary Care Provider Unavailable Encounter Details Date Type Department Care Team Description 03/22/2001 - Hospital Encounter HX NO MAPPING Miguelina Bianchi, 03/23/2001 D[address] [place], [place] [address] ([place]) Social History Tobacco Use Types [...] Visit Cardiovascular Disease Maritza Currie M.D. 200 [place], [place] [phone] ([place]) 01/16/2022 Appointment Radiology Vignesh Currie M.D. [address] [place] [address] [phone] ([place]) 01/16/2022 Appointment Cardiovascular Disease Maritza Currie M.D. [address] [place] [address] [phone] ([place]) 01/16/2022 Appointment Radiology Vignesh Currie M.D. [address] [place], [place] [phone] ([place]) 01/16/2022 Appointment Cardiovascular Disease Maritza Currie M.D. [address] [place], [place] [phone] ([place]) documented as of this encounter Visit Diagnoses Not on filedocumented in this encounter
--- OUTSIDE RECORDS SUMMARY | 2021-12-10 15:13 | XMS_ITS | Encounter Summary ---
:1945 Author Organization [facility] Address [address] [place] [address] Care Team Providers Name Role Phone Unavailable [...] Provider Ser - 06/09/2001 12:00 AM CDT [id number] *-*-*-*-* SEE SCANNED REPORT *-*-*-*-* Source: [facility] RWHXTRANSXSYS Document Id: [id number] documented in this encounter Plan of Treatment Upcoming Encounters Date Type Specialty Care Team Description 12/26/2021 Office Visit Cardiovascular Disease Maritza uCrrie M.D. [address] [place], [place] [phone] ([place]) 01/16/2022 Appointment Radiology Vignesh Currie M.D. [address] [place], [place] [phone] ([place]) 01/16/2022 Appointment Cardiovascular Disease Maritza Currie M.D. [address] [place], [place] 55 [phone] (Wo rk) 01/16/2022 Appointment Radiology Vignesh Currie M.D. [address] [place], [place] [phone] (Wo rk) 01/16/2022 Appointment Cardiovascular Disease Maritza Currie M.D. [address] [place], [place] [phone] (Wo rk) documented as of this encounter Visit Diagnoses Not on filedocumented in this encounter
--- OUTSIDE RECORDS SUMMARY | 2021-12-10 15:13 | XMS_ITS | Encounter Summary ---
:1945 Author Organization [facility] Address [address] [place] [address] Care Team Providers Name Role Phone Unavailable Primary Care Provider Unavailable Encounter Details Date Type Department Care Team Description 05/21/2001 Hospital Encounter [facility]X [facility] SURGDian Jones D.O. [address] [place], [place] [address] ([place]) Social History [...] Provider Ser - 05/21/2001 12:00 AM CST [id number] >> JUDITH FRIAS Fri May 21, 2001 5:27 PM CALL INITIATED. Contact: This office note has been dictated. Source: [facility] Document Id: [id number] documented in this encounter Plan of Treatment Upcoming Encounters Date Type Specialty Care Team Description 12/26/2021 Office Visit Cardiovascular Disease Maritza Currie M.D. [address] [place], [place] [phone] (Wo rk) 01/16/2022 Appointment Radiology Vignesh Currie M.D. [address] [place] [address] [phone] (Wo rk) 01/16/2022 Appointment Cardiovascular Disease Maritza Currie M.D. [address] [place] [address] [phone] (Wo rk) 01/16/2022 Appointment Radiology Vignesh Currie M.D. [address] [place] [address] [phone] (Wo rk) 01/16/2022 Appointment Cardiovascular Disease Maritza Currie M.D. [address] [place] [address] [phone] (Wo rk) documented as of this encounter Visit Diagnoses Not on filedocumented in this encounter
--- OUTSIDE RECORDS SUMMARY | 2021-12-10 15:13 | XMS_ITS | Encounter Summary ---
:1945 Author Organization [facility] Address [address] [place] [address] Care Team Providers Name Role Phone Unavailable [...] Visit Cardiovascular Disease Maritza Currie M.D. [address] [place] [address] [phone] ([place]) 01/16/2022 Appointment Radiology Vignesh Currie M.D. [address] [place] [address] [phone] ([place]) 01/16/2022 Appointment Cardiovascular Disease Maritza Currie M.D. [address] [place] [address] [phone] ([place]) 01/16/2022 Appointment Radiology Vignesh Currie M.D. [address] [place] [address] 55 [phone] ([place]) 01/16/2022 Appointment Cardiovascular Disease Maritza Currie M.D. [address] [place], [place] [phone] (Wo rk) documented as of this encounter Visit Diagnoses Not on filedocumented in this encounter
--- OUTSIDE RECORDS SUMMARY | 2021-12-10 15:13 | XMS_ITS | Encounter Summary ---
:1945 Author Organization [facility] Address [address] [place] [address] Care Team Providers Name Role Phone Unavailable Primary Care Provider Unavailable Encounter Details Date Type Department Care Team Description 05/21/2001 Hospital Encounter [facility] SURGCLDian Marks, Hernan [address] [place], [place] [address] (Wo rk) Social History [...] Provider Ser - 05/21/2001 12:00 AM CST [id number] >> PAWEL SCHMITT Mon May 24, 2001 [...] with me prn. Miguelina Bianchi D.O./kelly [facility] Document Id: [id number] documented in this encounter Plan of Treatment Upcoming Encounters Date Type Specialty Care Team Description 12/26/2021 Office Visit Cardiovascular Disease Maritza Currie M.D. [address] [place] [address] [phone] ([place]) 01/16/2022 Appointment Radiology Vignesh Currie M.D. [address] [place] [address] [phone] ([place]) 01/16/2022 Appointment Cardiovascular Disease Maritza Currie M.D. [address] [place] [address] [phone] ([place]) 01/16/2022 Appointment Radiology Vignesh Currie M.D. [address] [place] [address] [phone] ([place]) 01/16/2022 Appointment Cardiovascular Disease Maritza Currie M.D. [address] [place] [address] [phone] ([place]) documented as of this encounter Visit Diagnoses Not on filedocumented in this encounter
--- OUTSIDE RECORDS SUMMARY | 2021-12-10 15:13 | XMS_ITS | Encounter Summary ---
:1945 Author Organization [facility] Address [address] [place] [address] Care Team Providers Name Role Phone Unavailable [...] Historical Provider Ser - 03/22/2001 12:00 AM TAX EVALUATOR [id number] Abstracted by SANTI Patient Resource Specialist on 03/24/2001[facility] [place] [id number] Bianchi D.O.Room No. SSS [id number], LURENE : [id number]/OPERATIVE REPORTPREOPE RATIVE DIAGNOSIS:Recurrent incisional hernia.POSTOPERATIVE DIAGNOSIS:Recurrent incisional [...] procedure well and there are no apparent complications.LLT:[id number]. 2-4-0 2 Dustin Bianchi D.O. Source: [facility] Document Id: [id number] documented in this encounter Plan of Treatment Upcoming Encounters Date Type Specialty Care Team Description 12/26/2021 Office Visit Cardiovascular Disease Maritza Currie M.D. [address] [place] [address] [phone] ([place]) 01/16/2022 Appointment Radiology Vignesh Currie M.D. [address] [place] [address] [phone] ([place]) 01/16/2022 Appointment Cardiovascular Disease Maritza Currie M.D. [address] [place] [address] [phone] ([place]) 01/16/2022 Appointment Radiology Vignesh Currie M.D. [address] [place] [address] [phone] ([place]) 01/16/2022 Appointment Cardiovascular Disease Maritza Currie M.D. [address] [place] [address] [phone] ([place]) documented as of this encounter Visit Diagnoses Not on filedocumented in this encounter
--- OUTSIDE RECORDS SUMMARY | 2021-12-10 15:13 | XMS_ITS | Encounter Summary ---
:1945 Author Organization [facility] Address [address] [place] [address] Care Team Providers Name Role Phone Unavailable [...] Provider Ser - 07/14/2002 12:00 AM CDT [id number] Marcial Adams [address] [place] [address] July 14, 2002 Dear Marcial Adams The biopsy results from your recent colonoscopy exam on July 06, 2002, at [facility] Endoscopy Department show the following: The tissue samples show benign tissue.You should have another colonoscopy in 5-[address] Robledo. If you have any questions/concerns regarding this, please call us at [phone]. Thank you for letting us serve you. Sincerely, Paola Howe Source: [facility] RWHXTRANSXRTFSYS Document Id: [id number] documented in this encounter Plan of Treatment Upcoming Encounters Date Type Specialty Care Team Description 12/26/2021 Office Visit Cardiovascular Disease Maritza Currie M.D. [address] [place] [address] [phone] (Wo rk) 01/16/2022 Appointment Radiology Vignesh Currie M.D. [address] [place] [address] [phone] (Wo rk) 01/16/2022 Appointment Cardiovascular Disease Maritza Currie M.D. [address] [place] [address] [phone] (Wo rk) 01/16/2022 Appointment Radiology Vignesh Currei M.D. [address] [place] [address] [phone] (Wo rk) 01/16/2022 Appointment Cardiovascular Disease Maritza Currie M.D. [address] [place] [address] [phone] (Wo rk) documented as of this encounter Visit Diagnoses Not on filedocumented in this encounter
--- OUTSIDE RECORDS SUMMARY | 2021-12-10 15:13 | XMS_ITS | Encounter Summary ---
:1945 Author Organization [facility] Address [address] [place] [address] Care Team Providers Name Role Phone Unavailable [...] Provider Ser - 07/07/2001 12:00 AM CDT [id number] *-*-*-*-* SEE SCANNED REPORT *-*-*-*-* Source: [facility] RWHXTRANSXSYS Document Id: [id number] documented in this encounter Plan of Treatment Upcoming Encounters Date Type Specialty Care Team Description 12/26/2021 Office Visit Cardiovascular Disease Maritza Currie M.D. [address] [place], [place] [phone] ([place]) 01/16/2022 Appointment Radiology Vignesh Currie M.D. [address] [place], [place] [phone] ([place]) 01/16/2022 Appointment Cardiovascular Disease Maritza Currie M.D. [address] [place], [place] [phone] (Wo rk) 01/16/2022 Appointment Radiology Vignesh Currie M.D. [address] [place], [place] [phone] (Wo rk) 01/16/2022 Appointment Cardiovascular Disease Maritza Currie M.D. [address] [place], [place] [phone] (Wo rk) documented as of this encounter Visit Diagnoses Not on filedocumented in this encounter
--- OUTSIDE RECORDS SUMMARY | 2021-12-10 15:13 | XMS_ITS | Encounter Summary ---
:1945 Author Organization [facility] Address [address] [place] [address] Care Team Providers Name Role Phone Unavailable [...] Cardiovascular Disease Maritza Currie M.D. [address] [place] [phone] ([place]) 01/16/2022 Appointment Radiology Vignesh Currie M.D. [address] [place] [address] 55 [phone] ([place]) 01/16/2022 Appointment Cardiovascular Disease Maritza Currie M.D. [address] [place] [address] [phone] ([place]) 01/16/2022 Appointment Radiology Vignesh Currie M.D. [address] [place] [address] [phone] ([place]) 01/16/2022 Appointment Cardiovascular Disease Maritza Currie M.D. [address] [place], [place] [phone] (Wo rk) documented as of this encounter Visit Diagnoses Not on filedocumented in this encounter
--- OUTSIDE RECORDS SUMMARY | 2021-12-10 15:13 | XMS_ITS | Encounter Summary ---
:1945 Author Organization [facility] Address [address] [place] [address] Care Team Providers Name Role Phone Unavailable [...] Provider Ser - 07/06/2002 6:25 AM CDT [id number] Addended by: DANIEL LOPEZ on: 07/26/2002,4:19 PM Comment: JAMES CUELLAR =BLEEModules accepted: Prog ress Notes Source: [facility] RWHXTRANSXSYS Document Id: [id number] documented in this encounter Plan of Treatment Upcoming Encounters Date Type Specialty Care Team Description 12/26/2021 Office Visit Cardiovascular Disease Maritza Currie M.D. [address] [place] [address] [phone] ([place]) 01/16/2022 Appointment Radiology Vignesh Currie M.D. [address] [place] [address] [phone] ([place]) 01/16/2022 Appointment Cardiovascular Disease Maritza Currie M.D. [address] [place], [place] 55 [phone] (Wo karthik) 01/16/2022 Appointment Radiology Vignesh Currie M.D. [address] [place] [address] [phone] ([place]) 01/16/2022 Appointment Cardiovascular Disease Maritza Currie M.D. [address] [place], [place] [phone] ([place]) documented as of this encounter Visit Diagnoses Not on filedocumented in this encounter
--- OUTSIDE RECORDS SUMMARY | 2021-12-10 15:13 | XMS_ITS | Encounter Summary ---
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 [address] [place], [place] [phone] ([place]) 01/16/2022 Appointment Radiology Vignesh Currie M.D. [address] [place], [place] [phone] ([place]) 01/16/2022 Appointment Cardiovascular Disease Maritza Currie M.D. [address] [place], [place] [phone] (Wo rk) 01/16/2022 Appointment Radiology Vignesh Currie M.D. [address] [place] [address] [phone] (Wo rk) 01/16/2022 Appointment Cardiovascular Disease Maritza Currie M.D. [address] [place], [place] 55 [phone] (Wo rk) documented as of this encounter Visit Diagnoses Not on filedocumented in this encounter
--- OUTSIDE RECORDS SUMMARY | 2021-12-10 15:13 | XMS_ITS | Encounter Summary ---
:1945 Author Organization [facility] Address [address] [place] [address] Care Team Providers Name Role Phone Unavailable Primary Care Provider Unavailable Encounter Details Date Type Department Care Team Description 04/22/[address] [facility] SURGCLDian Marks, DJairoOJairo [address] [place], [place] [address] (Wo rk) Social History [...] Provider Ser - 04/22/2001 10:00 AM CST [id number] Addended by: PAWEL SCHMITT on: 04/23/2001,3:12 PM [...] any sort of re striction. Miguelina Bianchi D.O./kellyD: 04/22/2001T: 04/23/2001 Source: [facility] RWHXTRANSXSYS Document Id: [id number] documented in this encounter Plan of Treatment Upcoming Encounters Date Type Specialty Care Team Description 12/26/2021 Office Visit Cardiovascular Disease Maritza Currie M.D. [address] [place] [address] [phone] ([place]) 01/16/2022 Appointment Radiology Vignesh Currie M.D. [address] [place] [address] [phone] ([place]) 01/16/2022 Appointment Cardiovascular Disease Maritza Currie M.D. [address] [place] [address] [phone] ([place]) 01/16/2022 Appointment Radiology Vignesh Currie M.D. [address] [place] [address] [phone] ([place]) 01/16/2022 Appointment Cardiovascular Disease Maritza Currie M.D. [address] [place] [address] [phone] ([place]) documented as of this encounter Visit Diagnoses Not on filedocumented in this encounter
--- OUTSIDE RECORDS SUMMARY | 2021-12-10 15:13 | XMS_ITS | Encounter Summary ---
:1945 Author Organization [facility] Address [address] [place] [address] Care Team Providers Name Role Phone Unavailable Primary Care Provider Unavailable Encounter Details Date Type Department Care Team Description 07/13/2001 Hospital Encounter [facility] SURGCLDian Marks, DJairoOJairo [address] [place], [place] [phone] (Wo rk) Social History [...] Provider Ser - 07/13/2001 11:45 AM CDT [id number] Addended by: PAWEL SCHMITT on: 07/14/2001,9:57 AM Comment: transcriptionModules accepted: Prog ress NotesThis office note has been dictated.SUBJECTIVE: Ms. Adams is here for f/u and results of a CT scan done in [place]. OBJECTIVE: She previously had an incisional hernia [...] prn. Miguelina Bianchi D.O./PLSD: 07/13/2001T: 07/14/2001 [facility] Document Id: [id number] documented in this encounter Plan of Treatment Upcoming Encounters Date Type Specialty Care Team Description 12/26/2021 Office Visit Cardiovascular Disease Maritza Currie M.D. [address] [place] [address] [phone] ([place]) 01/16/2022 Appointment Radiology Vignesh Currie M.D. [address] [place] [address] [phone] (Wo rk) 01/16/2022 Appointment Cardiovascular Disease Maritza Currie M.D. [address] [place] [address] [phone] (Jean rk) 01/16/2022 Appointment Radiology Vignesh Currie M.D. [address] [place] [address] [phone] (Jean rk) 01/16/2022 Appointment Cardiovascular Disease Maritza Currie M.D. [address] [place] [address] [phone] ([place]) documented as of this encounter Visit Diagnoses Not on filedocumented in this encounter
--- OUTSIDE RECORDS SUMMARY | 2021-12-10 15:13 | XMS_ITS | Encounter Summary ---
:1945 Author Organization [facility] Address [address] [place] [address] Care Team Providers Name Role Phone Unavailable Primary Care Provider Unavailable Encounter Details Date Type Department Care Team Description 09/14/2002 Hospital Encounter HX [facility] Terri Victor M.D. [address] [place], [place] [phone] (Wo rk) Social History [...] Provider Ser - 09/14/2002 8:15 AM CDT [id number] Addended by: NICANOR SMALL on: 09/20/2002,10:31 AM [...] 1-[address] Cruz in [place]- he has checked her pressur es in her eye x 2, has done a visual filed and a dilated exam and didn't find anything. The patient i s very concerned about it.Dorina Bucio, Klaus Active Problem List: OSTEOPOROSIS NEC[733.09] PAST MEDICAL [...] be indicated to rule out mass.Zach Novoa M.D./amaD: 09/14/2002T: 09/19/2002 Source: [facility] RWHXTRANSXSYS Document Id: [id number] documented in this encounter Miscellaneous Notes Miscellaneous - Conversion, Historical Provider Ser - 09/14/2002 8:15 AM CDT [id number] September 14, 2002 Lincoln Vazquez M.D. [place] [id number] RE: Marcial Adams EMR#[id number] Dear Lincoln: Thank you for having me [...] Novoa M.D. Department of Ophthalmology ANOOP/brittni Source: [facility] RWHXTRANSXRTFSYS Document Id: [id number] documented in this encounter Plan of Treatment Upcoming Encounters Date Type Specialty Care Team Description 12/26/2021 Office Visit Cardiovascular Disease Maritza Currie M.D. [address] [place] [address] [phone] ([place]) 01/16/2022 Appointment Radiology Vignesh Currie M.D. [address] [place] [address] [phone] ([place]) 01/16/2022 Appointment Cardiovascular Disease Maritza Currie M.D. [address] [place] [address] [phone] ([place]) 01/16/2022 Appointment Radiology Vignesh Currie M.D. [address] [place] [address] [phone] ([place]) 01/16/2022 Appointment Cardiovascular Disease Maritza Currie M.D. [address] [place] [address] [phone] (Wo rk) documented as of this encounter Visit Diagnoses Not on filedocumented in this encounter
--- OUTSIDE RECORDS SUMMARY | 2021-12-10 15:13 | XMS_ITS | Encounter Summary ---
:1945 Author Organization [facility] Address [address] [place] [address] Care Team Providers Name Role Phone Unavailable Primary Care Provider Unavailable Encounter Details Date Type Department Care Team Description 05/07/2001 Hospital Encounter [facility] SURGCLDian Marks, DMarisol [address] [place], [place] [phone] (Wo rk) Social History [...] Provider Ser - 05/07/2001 3:00 PM CST [id number] Marcial is here for her 4 week [...] with meals. F/U in one month. Source: [facility] RWHXTRANSXSYS Document Id: [id number] documented in this encounter Plan of Treatment Upcoming Encounters Date Type Specialty Care Team Description 12/26/2021 Office Visit Cardiovascular Disease Maritza Currie M.D. [address] [place] [address] [phone] (Wo rk) 01/16/2022 Appointment Radiology Vignesh Currie M.D. [address] [place] [address] [phone] (Wo rk) 01/16/2022 Appointment Cardiovascular Disease Maritza Currie M.D. [address] [place] [address] [phone] (Wo rk) 01/16/2022 Appointment Radiology Vignesh Currie M.D. [address] [place] [address] [phone] (Wo rk) 01/16/2022 Appointment Cardiovascular Disease Maritza Currie M.D. [address] [place] [address] [phone] (Wo rk) documented as of this encounter Visit Diagnoses Not on filedocumented in this encounter
--- OUTSIDE RECORDS SUMMARY | 2021-12-10 15:13 | XMS_ITS | Encounter Summary ---
:1945 Author Organization [facility] Address [address] [place] [address] Care Team Providers Name Role Phone Unavailable [...] Cardiovascular Disease Maritza Currie M.D. [address] [place] [address] [phone] ([place]) 01/16/2022 Appointment Radiology Vignesh Currie M.D. [address] [place] [address] [phone] ([place]) 01/16/2022 Appointment Cardiovascular Disease Maritza Currie M.D. [address] [place] [address] [phone] ([place]) 01/16/2022 Appointment Radiology Vignesh Currie M.D. [address] [place] [address] [phone] ([place]) 01/16/2022 Appointment Cardiovascular Disease Maritza Currie M.D. [address] [place], [place] [phone] (Wo rk) documented as of this encounter Visit Diagnoses Not on filedocumented in this encounter
--- OUTSIDE RECORDS SUMMARY | 2021-12-10 15:13 | XMS_ITS | Encounter Summary ---
:1945 Author Organization [facility] Address [address] [place] [address] Care Team Providers Name Role Phone Unavailable Primary Care Provider Unavailable Encounter Details Date Type Department Care Team Description 04/08/2001 Hospital Encounter [facility] SURGCLDian Marks, [place] [address] [place], [place] [phone] (Wo rk) Social History [...] Provider Ser - 04/08/2001 9:00 AM CST [id number] Marcial is here s/p laprascopic repair of [...] to work at annabelle t time. Source: [facility] RWHXTRANSXSYS Document Id: [id number] documented in this encounter Plan of Treatment Upcoming Encounters Date Type Specialty Care Team Description 12/26/2021 Office Visit Cardiovascular Disease Maritza Currie M.D. [address] [place] [address] [phone] (Wo rk) 01/16/2022 Appointment Radiology Vignesh Currie M.D. [address] [place] [address] [phone] (Wo rk) 01/16/2022 Appointment Cardiovascular Disease Maritza Currie M.D. [address] [place] [address] [phone] (Wo rk) 01/16/2022 Appointment Radiology Vignesh Currie M.D. [address] [place] [address] [phone] (Wo rk) 01/16/2022 Appointment Cardiovascular Disease Maritza Currie M.D. [address] [place] [address] [phone] (Wo rk) documented as of this encounter Visit Diagnoses Not on filedocumented in this encounter
--- OUTSIDE RECORDS SUMMARY | 2021-12-10 15:14 | XMS_ITS | Encounter Summary ---
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 [address] [place], [place] 55 [phone] ([place]) 01/16/2022 Appointment Radiology Vignesh Currie M.D. [address] [place], [place] [phone] ([place]) 01/16/2022 Appointment Cardiovascular Disease Maritza Currie M.D. [address] [place], [place] [phone] (Wo rk) 01/16/2022 Appointment Radiology Vignesh Currie M.D. [address] [place] [address] [phone] (Wo rk) 01/16/2022 Appointment Cardiovascular Disease Maritza Currie M.D. [address] [place], [place] [phone] (Wo rk) documented as of this encounter Visit Diagnoses Not on filedocumented in this encounter
--- OUTSIDE RECORDS SUMMARY | 2021-12-10 15:14 | XMS_ITS | Encounter Summary ---
:1945 Author Organization [facility] Address [address] [place] [address] Care Team Providers Name Role Phone Unavailable Primary Care Provider Unavailable Encounter Details Date Type Department Care Team Description 03/18/2001 Hospital Encounter HX [facility] SURGCLDian Marks, [place] [address] [place], [place] [address] (Wo rk) Social History [...] Provider Ser - 03/18/2001 3:00 PM CST [id number] Addended by: PAWEL SCHMITT on: 03/31/2001,9:50 AM Comment: tranxModules accepted: Progress Not esThis office note has been dictated.Marcial Adams [id number] is a patient well-known to me who I have seen in [place] in the past. She is a 55 [...] procedure, and I explained to the patient whil e this is not a complication, this would [...] general anesthetic.30 minutes of time was spent investment counselor ing this patient. Marlon Bianchi D.O./plsD: 03/18/01T: 03/29/01 Source: [facility] RWHXTRANSXSYS Document Id: [id number] documented in this encounter Plan of Treatment Upcoming Encounters Date Type Specialty Care Team Description 12/26/2021 Office Visit Cardiovascular Disease Maritza Currie M.D. [address] [place] [address] [phone] (Wo rk) 01/16/2022 Appointment Radiology Vignesh Currie M.D. [address] [place] [address] [phone] (Wo rk) 01/16/2022 Appointment Cardiovascular Disease Maritza Currie M.D. [address] [place] [address] [phone] (Wo rk) 01/16/2022 Appointment Radiology Vignesh Currie M.D. [address] [place] [address] [phone] (Wo rk) 01/16/2022 Appointment Cardiovascular Disease Maritza Currie M.D. [address] [place] [address] [phone] (Wo rk) documented as of this encounter Visit Diagnoses Not on filedocumented in this encounter
--- OUTSIDE RECORDS SUMMARY | 2021-12-10 15:15 | XMS_ITS | Encounter Summary ---
:1945 Author Organization [facility] Address [address] [place] [address] Care Team Providers Name Role Phone Corrine [...] Vazquez MD Care Coordination 1705 [facility] [address], [place] [phone] Referral ID Status Reason Start Expiration Visits Visits Date Date Requested Authorized [id number] Authorized Specialty 02/16/2021 03/18/2022 99 99 Services Required Encounter Details Date Type Department Care Team Description 05/09/2021 Patient Outreach Care Coordination Abbie Ramesh [facility] and [address] [place] [address] Terri [place] [address] 6574 [facility] (Primary Dx) [phone] [place] [phone] Social History Tobacco Use Types Packs/Day Years [...] 12/23/2018 organizations such as quaker groups, unions, [employer] or athletic groups, or school groups? How [...] Peter Ramesh (02/05/2021 Abbie Murray, 11:19 AM LAST SORTER) RN Note: Formatting of this note is differe nt from the original. Routine Health Management Care Team Patient Care Team: Corrine Vazquez MD as PCP - [facility] Yossi Potts, RN as Registered Nurse (Diabetes Education) Abbie Ramesh RN as Hand Bander Future Scheduled Appointments No future appointments. Health [...] (02/05/2021 11:17 AM No Abbie Ramesh, RN LAST SORTER) Note: Formatting of this note is differe [...] (02/05/2021 No Abbie Ramesh, RN 11:14 AM LAST SORTER) Note: Formatting of this note is differe [...] imary documented in this encounter Care Teams Overnight Babysitter Relationship Specialty Start Date End Date Corrine Vazquez MD PCP - General Family Medicine 07/07/19 08/19/[address] [place] [phone] documented as of this encounter
--- OUTSIDE RECORDS SUMMARY | 2021-12-10 15:15 | XMS_ITS | Encounter Summary ---
:1945 Author Organization [facility] Address [address] [place] [address] Care Team Providers Name Role Phone Corrine Vazquez MD Primary Care Provider Reason for Visit Consultation (Routine) - Authorized Specialty Diagnoses / Procedures Referred By Contact Refer red To Contact Family Medicine Diagnoses Enrolled in chronic care management Essential hypertension Type 2 diabetes mellitus with other specified complication, with long-term current use of insulin (HCC) Mixed hyperlipidemia Corrine Vazquez MD Care Coordination [address] [place] [phone] Referral ID Status Reason Start Expiration Visits Visits Date Date Requested Authorized [id number] Authorized Specialty 02/16/2021 03/18/2022 99 99 Services Required Encounter Details Date Type Department Care Team Description 04/10/2021 Patient Outreach SE Care Coordination Abbie Ramesh, [address] [place] [address] [place] [address] [place] [phone] Social History Tobacco Use Types Packs/Day Years [...] first attempt to call this month. OR SKIN BUFFER documented in this encounter Plan of Treatment Not on filedocumented as of this encounter Goals Goal Patient Goal Associated Recent Patient-Stated? Author Type Problems Progress Routine Health General No change Peter Monzon (02/05/2021 Abbie Murray, 11:19 AM HIDE OR SKIN BUFFER) RN Note: Formatting of this note is differe nt from the original. Routine Health Management Care Team Patient Care Team: Corrine Vazquez MD as PCP - General ([facility] am[facility] Medicine) Yossi Potts, RN as Registered Nurse (Diabetes Education) Abbie Ramesh RN as Mail Sorter Future Scheduled Appointments No future appointments. Health Maintenance Health Maintenance Topic Date Due Urine Protein Screening 05/31/2020 Lipid Panel 09/05/2020 Glaucoma Screening 67+ Yr 12/25/2020 Ophthalmology Exam 12/25/2020 OM Annual Wellness 01/12/2021 Hemoglobin A1C 01/24/2021 Diabetic Foot Exam 03/16/2021 Colorectal Cancer Screening: Colonoscop y 05/21/2021 Fall Risk Performed 06/05/2021 Mammogram 12/03/2021 COVID-19 Vaccine Completed [facility] Pneumococcal Vaccine: <64 Completed [facility] Pneumococcal Vaccine: 65+ Years Com pleted HPV Vaccines Aged Out Notes: Due: Urine Protein screening Eye exam AWV A1C Lipid panel Diabetes Management General No change (02/05/2021 11:17 AM No Abbie Ramesh, RN HIDE OR SKIN BUFFER) Note: Formatting of this note is differe [...] (02/05/2021 No Abbie Ramesh, RN 11:14 AM HIDE OR SKIN BUFFER) Note: Formatting of this note is differe nt from the original. Cardiovascular Management Essential hypertension Chronic coronary artery disease Managed by (PCP; Cardiology; [facility]) Dr. Ronak lozoya MD (PCP)/Dr. [...] filedocumented in this encounter Care Teams Manager Zone Relationship Specialty Start Date End Date Corrine Vazquez MD PCP - General Family Medicine 07/07/19 08/19/[address] [place] [phone] documented as of this encounter
--- OUTSIDE RECORDS SUMMARY | 2021-12-10 15:15 | XMS_ITS | Encounter Summary ---
:1945 Author Organization [facility] Address [address] [place] [address] Care Team Providers Name Role Phone Corrine Vazquez MD Primary Care Provider Reason for Visit Consultation (Routine) - Authorized Specialty Diagnoses / Procedures Referred By Contact Refer red To Contact Family Medicine Diagnoses Enrolled in chronic care management Essential hypertension Type 2 diabetes mellitus with other specified complication, with long-term current use of insulin (HCC) Mixed hyperlipidemia Corrine Vazquez MD Care Coordination [address] [place] [phone] Referral ID Status Reason Start Expiration Visits Visits Date Date Requested Authorized [id number] Authorized Specialty 02/16/2021 03/18/2022 99 99 Services Required Encounter Details Date Type Department Care Team Description 03/15/2021 Patient Outreach SE Care Coordination Abbie Ramesh, [address] [place] [address] [place] [address] [place] [phone] Social History Tobacco Use Types Packs/Day Years [...] is first attempt to call this month. LE MOLDER HAND documented in this encounter Plan of Treatment Not on filedocumented as of this encounter Goals Goal Patient Goal Associated Recent Patient-Stated? Author Type Problems Progress Routine Health General No change Peter Monzon (02/05/2021 Abbie Murray, 11:19 AM CANDLE MOLDER HAND) RN Note: Formatting of this note is differe nt from the original. Routine Health Management Care Team Patient Care Team: Corrine Vazquez MD as PCP - General ([facility] am[facility] Medicine) Yossi Potts, RN as Registered Nurse (Diabetes Education) Abbie Ramesh RN as Flight Coordinator Future Scheduled Appointments No future appointments. [...] (02/05/2021 11:17 AM No Abbie Ramesh, RN CANDLE MOLDER HAND) Note: Formatting of this note is differe [...] (02/05/2021 No Abbie Ramesh, RN 11:14 AM CANDLE MOLDER HAND) Note: Formatting of this note is differe nt from the original. Cardiovascular Management Essential hypertension Chronic coronary artery disease Managed by (PCP; Cardiology; [facility]) Dr. Ronak lozoya MD [...] on filedocumented in this encounter Care Teams Assurance Senior Manager Relationship Specialty Start Date End Date Corrine Vazquez MD PCP - General Family Medicine 07/07/19 08/19/[address] [place] [phone] documented as of this encounter
--- OUTSIDE RECORDS SUMMARY | 2021-12-10 15:15 | XMS_ITS | Encounter Summary ---
:1945 Author Organization [facility] Address [address] [place] [address] Care Team Providers Name Role Phone Corrine Vazquez MD Primary Care Provider Reason for Visit Reason Onset Date Comments med question 03/15/2021 Encounter Details Date Type Department Care Team Description 03/15/2021 Telephone [place] Corrine Vazquez MD med question [address] [place], [place] [address] [place], [place] [phone] (Wo rk) Social History Tobacco Use Types [...] this time. She will start the hydrochlorothiazide. GER STUDY Telephone Encounter - Corrine Vazquez MD - [...] as having a reaction to the amlodipine. GER STUDY Telephone Encounter - Margareth Sanchez RN - 03/15/2021 2:57 PM CST Patient stated she was on Amlodipine earlier this year and she felt terrible on it, she said she wasso fatigued, she could barely walk, she saw a material flow engineer because she thought something was wrong with her heart. When she stopped the Amlodipine she felt better within 2 days. She wonders if there edmond different medication she can take for her BP. She did say she hasn't started the hydrochlorothiazide because she is scheduled for an EGD Thursday and she doesn't want to start anything prior to that procedure. Please advise. GER STUDY Telephone Encounter - Margareth Sanchez RN - 03/15/2021 1:59 PM CST LMTC to discuss medications. GER STUDY Telephone Encounter - Brenda House - 03/15/2021 12:01 PM CST Pt has questions about amlodipine. Pt thinks that she is not suppose to be taking. GER STUDY documented in this encounter Plan of Treatment Not on filedocumented as of this encounter Goals Goal Patient Goal Associated Recent Patient-Stated? Author Type Problems Progress Routine Health General No change No Peter Ramesh (02/05/2021 Abbie Murray, 11:19 AM MANAGER STUDY) RN Note: Formatting of this note is differe nt from the original. Routine Health Management Care Team Patient Care Team: Corrine Vazquez MD as PCP - General ([facility]) Yossi Potts, RN as Registered Nurse (Diabetes Education) Abbie Ramesh, RN as Cutting Inspector Future Scheduled Appointments No future appointments. [...] change (02/05/2021 11:17 AM Abbie Monzon, RN MANAGER STUDY) Note: Formatting of this note is differe [...] (02/05/2021 No Abbie Ramesh RN 11:14 AM MANAGER STUDY) Note: Formatting of this note is differe [...] on filedocumented in this encounter Care Teams Circus Rider Relationship Specialty Start Date End Date Corrine Vazquez MD PCP - General Family Medicine 07/07/19 08/19/[address] [place] [address] documented as of this encounter
--- OUTSIDE RECORDS SUMMARY | 2021-12-10 15:15 | XMS_ITS | Encounter Summary ---
:1945 Author Organization [facility] Address [address] [place] [address] Care Team Providers Name Role Phone Corrine Vazquez MD Primary Care Provider Reason for Visit Consultation (Routine) - Authorized Specialty Diagnoses / Procedures Referred By Contact Refer red To Contact Family Medicine Diagnoses Enrolled in chronic care management Essential hypertension Type 2 diabetes mellitus with other specified complication, with long-term current use of insulin (HCC) Mixed hyperlipidemia Corrine Vazquez MD Care Coordination [address] [place] [address] 5 5904 [phone] Referral ID Status Reason Start Expiration Visits Visits Date Date Requested Authorized [id number] Authorized Specialty 02/16/2021 03/18/2022 99 99 Services Required Encounter Details Date Type Department Care Team Description 06/19/2021 Patient Outreach SE Care Coordination Abbie Ramesh, [address] [place] [address] [place] [address] [place] [phone] Social History Tobacco Use Types Packs/Day Years [...] documented as of this encounter Progress Notes Abbei Ramesh RN - 06/19/2021 8:40 AM CDT [...] Peter Monzon (02/05/2021 Abbie Murray, 11:19 AM TRAFFIC ROUTING ENGINEER) RN Note: Formatting of this note is differe nt from the original. Routine Health Management Care Team Patient Care Team: Corrine Vazquez MD as PCP - General ([facility]) Yossi Potts, RN as Registered Nurse (Diabetes Education) Abbie Ramesh RN as C D Stripper Future Scheduled Appointments No future appointments. [...] (02/05/2021 11:17 AM No Abbie Ramesh, RN TRAFFIC ROUTING ENGINEER) Note: Formatting of this note is [...] (02/05/2021 No Abbie Ramesh, RN 11:14 AM TRAFFIC ROUTING ENGINEER) Note: Formatting of this note is differe nt from the original. Cardiovascular Management Essential hypertension Chronic coronary artery disease Managed by (PCP; Cardiology; [facility]) Dr. Ronak lozoya MD (PCP)/Dr. [...] on filedocumented in this encounter Care Teams Health Physicist Relationship Specialty Start Date End Date Corrine Vazquez MD PCP - General Family Medicine 07/07/19 08/19/[address] [place] [address] documented as of this encounter
--- OUTSIDE RECORDS SUMMARY | 2021-12-10 15:15 | XMS_ITS | Encounter Summary ---
:1945 Author Organization [facility] Address [address] [place] [address] Care Team Providers Name Role Phone Corrine Vazquez MD Primary Care Provider Reason for Visit Reason Onset Date Comments Two prescriptions 03/06/2021 Encounter Details Date Type Department Care Team Description 03/06/2021 Telephone [place] Corrine Vazquez, Two prescriptions [address] [place], [place] [address] [phone] [place] [address] ([facility]) Social History Tobacco Use Types Packs/Day [...] pen needles all faxed to [facility]. TH INFORMATION CODER Telephone Encounter - Lana Knight LPN - 03/07/2021 3:34 PM CST Please fax to [facility] TH INFORMATION CODER Telephone Encounter - Margareth Sanchez RN - 03/07/2021 3:32 PM CST ----- Message from Corrine Vazquez MD sent at 03/07/2021 3:08 PM HEALTH INFORMATION CODER ----- You can fax the DME for her diabetic supplies to [facility] in [place]. Then call the patient let her know that she can picker tender her diabetic supplies at [facility] in [place]. All of [facility] other prescriptionshave gone to [facility]. ----- Message ----- From: Lana Knight LPN Sent: 03/07/2021 10:55 AM HEALTH INFORMATION CODER To: Corrine Vazquez MD TH INFORMATION CODER Telephone Encounter - Margareth Sacnhez RN - 03/07/2021 2:47 PM CST Patient informed. TH INFORMATION CODER Telephone Encounter - Corrine Vazquez MD - 03/07/2021 9:59 AM CST Let patient know that I have sent to [facility] for 2 new blood pressure medications that she can picker tender from [facility]. Remind her again to come in about a month to have her blood pressure checkedand please do not forget to place the DME order for diabetic supplies to be sent to [facility] in [place]. TH INFORMATION CODER Telephone Encounter - Margareth Sanchez RN - 03/06/2021 2:52 PM CST Please advise on medication requests to [facility]. TH INFORMATION CODER Telephone Encounter - Luciana Albarado - 03/06/2021 2:12 PM CST Pt called to let Dr. Vazquez know she checked and yes - she would like you to go ahead and send thetwo prescriptions that were discussed at her appt to [facility]. Any questions please call Pt [phone] as necessary. TH INFORMATION CODER documented in this encounter Plan of Treatment Not on filedocumented as of this encounter Goals Goal Patient Goal Associated Recent Patient-Stated? Author Type Problems Progress Routine Health General No change Peter Monzon (02/05/2021 Abbie Murray, 11:19 AM HEALTH INFORMATION CODER) RN Note: Formatting of this note is differe nt from the original. Routine Health Management Care Team Patient Care Team: Corrine Vazquez MD as [facility] - [facility] Yossi Potts RN as Registered Nurse (Diabetes Education) Abbie Ramesh RN as Site Medical Director Future Scheduled Appointments No future appointments. [...] change (02/05/2021 11:17 AM Abbie Monzon, RN HEALTH INFORMATION CODER) Note: Formatting of this note is [...] (02/05/2021 No Abbie Ramesh, RN 11:14 AM HEALTH INFORMATION CODER) Note: Formatting of this note is [...] type documented in this encounter Care Teams Bench Assembler Relationship Specialty Start Date End Date Corrine Vazquez MD PCP - General Family Medicine 07/07/19 08/19/21 [address] [place] [address] documented as of this encounter
--- OUTSIDE RECORDS SUMMARY | 2021-12-10 15:15 | XMS_ITS | Encounter Summary ---
:1945 Author Organization [facility] Address [address] [place] [address] Care Team Providers Name Role Phone Corrine Vazquez MD Primary Care Provider Reason for Visit Reason Onset Date Comments med refill 03/13/2021 Encounter Details Date Type Department Care Team Description 03/13/2021 Telephone [place] Corrine Vazquez MD med refill [address] [place], [place] [address] [place], [place] [phone] (Wo rk) Social History Tobacco Use Types [...] Rx faxed to [facility], Pt notified. COOLER INSTALLER Telephone Encounter - Margareth Sanchez RN - 03/13/2021 11:10 AM CST Please fax Rx to [facility]. COOLER INSTALLER Telephone Encounter - Corrine Vazquez MD - 03/13/2021 11:03 AM CST You can fax the Rx for Xanax to her pharmacy. COOLER INSTALLER Telephone Encounter - Maryse Coker - 03/13/2021 10:13 AM CST Pt is requesting a refill of Xanax. She would like this to go to [facility] in [place]. Thanks. COOLER INSTALLER documented in this encounter Plan of Treatment Not on filedocumented as of this encounter Goals Goal Patient Goal Associated Recent Patient-Stated? Author Type Problems Progress Routine Health General No change No Peter Ramesh (02/05/2021 Abbie Murray, 11:19 AM BULK COOLER INSTALLER) RN Note: Formatting of this note is differe nt from the original. Routine Health Management Care Team Patient Care Team: Corrine Vazquez MD as PCP - General ([facility]) Yossi Potts, RN as Registered Nurse (Diabetes Education) bAbie Ramesh RN as Life Support Technician Future Scheduled Appointments No future appointments. Health Maintenance Health Maintenance Topic Date Due Urine Protein Screening 05/31/2020 Lipid Panel 09/05/2020 Glaucoma Screening 67+ Yr 12/25/2020 Ophthalmology Exam 12/25/2020 [facility] Annual Wellness 01/12/2021 Hemoglobin A1C 01/24/2021 Diabetic [...] (02/05/2021 11:17 AM No Abbie Ramesh, RN BULK COOLER INSTALLER) Note: Formatting of this note is [...] (02/05/2021 No Abbie Ramesh RN 11:14 AM BULK COOLER INSTALLER) Note: Formatting of this note is [...] unspecified documented in this encounter Care Teams Shore Worker Relationship Specialty Start Date End Date Corrine Vazquez MD PCP - General Family Medicine 07/07/19 08/19/[address] [place] [address] documented as of this encounter
--- OUTSIDE RECORDS SUMMARY | 2021-12-10 15:15 | XMS_ITS | Encounter Summary ---
:1945 Author Organization [facility] Address [address] [place] [address] Care Team Providers Name Role Phone Adriane Patel Ronak KELLY MACHINE OPERATOR, SUPERVISOR ROLLING ROOM Primary Care Provider [phone] Reason for Visit Reason Comments Med Refill Encounter Details Date Type Department Care Team Description 11/23/2021 Refill [place] Corrine Vazquez, [facility], [address] [facility] 20 [place] unspecified type [place], [place] [id number] [place] [address] [place] [address] Social History Tobacco Use Types Packs/Day Years [...] Telephone Encounter - Huma Reich MA - 11/25/2021 8:07 AM CDT Last visit in provider department: 03/06/2021 Last visit requested medication was discussed: 03/06/2021 Last Rx: #90 +3 refills 12/05/2020 Requested Prescriptions Pending Prescriptions Disp Refills ??? levothyroxine (SYNTHROID) 75 MCG tablet [Pharmacy Med Name: LEVOTHYROXINE SODIUM 75MCG TABS] 90 tablet 3 Sig: TAKE ONE TABLET BY MOUTH EVERY DAY Labs: Component Latest Ref Rng & Units 03/16/2020 TSH 0.46 - 4.68 mIU/L 1.59 Vitals: BP Readings from Last 2 Encounters: 03/06/21 (!) 162/86 11/09/20 144/82 Upcoming appointment with provider: Visit date not found documented in this encounter Plan of Treatment Not on filedocumented as of this encounter Goals Goal Patient Goal Associated Recent Patient-Stated? Author Type Problems Progress Routine Health General No change No Domitila, Management (02/05/2021 Abbie Murray, 11:19 AM TOOLROOM MACHINIST) RN Note: Formatting of this note is differe nt from the original. Routine Health Management Care Team Patient Care Team: Corrine Vazquez MD as PCP - General ([facility]) Yossi Potts, RN as Registered Nurse (Diabetes Education) Abbie Ramesh, ERA as Branch Logistics Supervisor Future Scheduled Appointments No future appointments. [...] (02/05/2021 11:17 AM No Abbie Ramesh, RN TOOLROOM MACHINIST) Note: Formatting of this note is differe [...] (02/05/2021 No Abbie Ramesh, RN 11:14 AM TOOLROOM MACHINIST) Note: Formatting of this note is differe [...] type documented in this encounter Care Teams Dry Cure Worker Relationship Specialty Start Date End Date Adriane Patel, MAL, SUPERVISOR ROLLING ROOM PCP - General Family Medicine 08/20/[address] [place] [address] [place] [address] documented as of this encounter
--- OUTSIDE RECORDS SUMMARY | 2021-12-10 15:15 | XMS_ITS | Encounter Summary ---
:1945 Author Organization [facility] Address [address] [place] [address] Care Team Providers Name Role Phone Adriane Patel Ronak EFFICIENCY ANALYST, COMPUTER TECHNOLOGIST Primary Care Provider [phone] Reason for Visit Consultation (Routine) - Authorized Specialty Diagnoses / Procedures Referred By Contact Refer red To Contact Family Medicine Diagnoses Enrolled in chronic care management Essential hypertension Type 2 diabetes mellitus with other specified complication, with long-term current use of insulin (HCC) Mixed hyperlipidemia Corrine Vazquez MD Care Coordination [facility] [address] [place] [address], [place] [phone] Referral ID Status Reason Start Expiration Visits Visits Date Date Requested Authorized [id number] Authorized Specialty 02/16/2021 03/18/2022 99 99 Services Required Encounter Details Date Type Department Care Team Description 07/31/2021 Patient Outreach Care Coordination Abbie Ramesh [facility] and [address] [place] [address] [place] [address] [address] [facility] (Primary Dx) [phone] [place] [address] Social History Tobacco Use Types [...] 12/23/2018 organizations such as druze groups, unions, [employer] or athletic groups, or school groups? How [...] states she was given Prednisone by her It Recruiter for a flare. She states she is concerned her blood sugars are running higher. Took first dose this morning. States this AM she was 131, lunch was 246, and was 331 this afternoon after lunch. Patient states her doctor is at the [facility] and follows with Suresh Patel. Instructed patient to follow up with her PCP as nurse cannot adjust insulin doses and patient does not follow with [facility] any longer. Marcial verbalizes understanding. 8 minutes spent with patient 1 minute spent in chart review Abbie Ramesh RN - 07/31/2021 10:40 AM CDT Care Coordination Outside Dealer Sales Representative: Abbie Ramesh RN Date: 08/20/2021 10:48 AM ?? Discontinued patient from [facility] since she no longer gets her Primary Care at [facility]. documented in this encounter Plan of Treatment Not on filedocumented as of this encounter Goals Goal Patient Goal Associated Recent Patient-Stated? Author Type Problems Progress Routine Health General No change Hailee Ramesh Management (02/05/2021 Abbie Murray, 11:19 AM INSPECTOR AGRICULTURAL COMMODITIES) RN Note: Formatting of this note is differe nt from the original. Routine Health Management Care Team Patient Care Team: Corrine Vazquez MD as PCP - [facility] ([facility] Yossi Potts, RN as Registered Nurse (Diabetes Education) Abbie Ramesh RN as Career Placement Services Counselor Future Scheduled Appointments No future appointments. [...] change (02/05/2021 11:17 AM Abbie Monzon RN INSPECTOR AGRICULTURAL COMMODITIES) Note: Formatting of this note is differe [...] (02/05/2021 No Abbie Ramesh RN 11:14 AM INSPECTOR AGRICULTURAL COMMODITIES) Note: Formatting of this note is differe nt from the original. Cardiovascular Management Essential hypertension Chronic coronary artery disease Managed by (PCP; [facility]; [facility]) Dr. Ronak lozoya MD (PCP)/Dr. [...] imary documented in this encounter Care Teams Television Reporter Relationship Specialty Start Date End Date Adriane Patel, EFFICIENCY ANALYST, COMPUTER TECHNOLOGIST PCP - General Family Medicine 08/20/21 [address] [place] [address] documented as of this encounter
--- OUTSIDE RECORDS SUMMARY | 2021-12-10 15:15 | XMS_ITS | Encounter Summary ---
:1945 Author Organization [facility] Address [address] [place] [address] Care Team Providers Name Role Phone Corrine Vazquez MD Primary Care Provider Reason for Visit Reason Onset Date Comments registry management 05/09/2021 Encounter Details Date Type Department Care Team Description 05/09/2021 Telephone [place] Corrine Vazquez, registry management [address] [facility] [place], [place] [address] [place] [address] [place] [address] ([facility]) Social History Tobacco Use Types Packs/Day Years [...] had an eye exam recently at the [facility], RN will call for records. ??? , please advise on possible Aspirin Therapy. documented in this encounter Plan of Treatment Not on filedocumented as of this encounter Goals Goal Patient Goal Associated Recent Patient-Stated? Author Type Problems Progress Routine Health General No change No Domitila, Management (02/05/2021 Abbie Murray 11:19 AM CORN LAB TECHNICIAN) RN Note: Formatting of this note is differe nt from the original. Routine Health Management Care Team Patient Care Team: Corrine Vazquez MD as PCP - General ([facility]) Yossi Potts RN as Registered Nurse (Diabetes Education) Abbie Ramesh RN as Purchasing Coordinator Future Scheduled Appointments No future appointments. Health Maintenance Health Maintenance Topic Date Due Urine Protein Screening 05/31/2020 Lipid Panel 09/05/2020 Glaucoma Screening 67+ Yr 12/25/2020 Ophthalmology Exam 12/25/2020 [facility] Annual Wellness 01/12/2021 Hemoglobin A1C 01/24/2021 Diabetic Foot Exam 03/16/2021 Colorectal Cancer Screening: Colonoscop y 05/21/2021 Fall Risk Performed 06/05/2021 Mammogram 12/03/2021 COVID-19 Vaccine Completed [facility] Pneumococcal Vaccine: <64 Completed [facility] Pneumococcal Vaccine: 65+ Years Com pleted HPV Vaccines Aged Out Notes: Due: Urine Protein screening Eye exam AWV A1C Lipid panel Diabetes Management General No change (02/05/2021 11:17 AM Abbie Monzon, RN CORN LAB TECHNICIAN) Note: Formatting of this note [...] track (02/05/2021 Abbie Monzon RN 11:14 AM CORN LAB TECHNICIAN) Note: Formatting of this note [...] on filedocumented in this encounter Care Teams Public Safety Telecommunicator Relationship Specialty Start Date End Date Corrine Vazquez MD PCP - General Family Medicine 07/07/19 08/19/[address] [place] [address] documented as of this encounter
--- OUTSIDE RECORDS SUMMARY | 2021-12-10 15:15 | XMS_ITS | Encounter Summary ---
:[address] [facility] Address [address] [place] [address] Care Team Providers Name Role Phone Corrine Vazquez MD Primary Care Provider Reason for Visit Reason Onset Date Comments a1c meter 04/05/2021 Encounter Details Date Type Department Care Team Description 04/05/2021 Telephone [place] Corrine Vazquez MD a1c meter [address] [place], [place] [address] [place], [place] [phone] (Wo rk) Social History Tobacco Use Types [...] LPN - 04/05/2021 10:51 AM CST Noted MIC PLOTTER Telephone Encounter - Luciana Albarado - 04/05/2021 10:25 AM CST Rx faxed to [facility]. MIC PLOTTER Telephone Encounter - Jovanna Swartz RN - 04/05/2021 9:51 AM CST Please fax Rx to [facility]. Thank you. MIC PLOTTER Telephone Encounter - Corrine Vazquez MD - 04/05/2021 9:19 AM CST You can fax the order for her glucometer to her pharmacy. MIC PLOTTER Telephone Encounter - Lana Knight LPN - 04/05/2021 9:11 AM CST Contour Next Meter MIC PLOTTER Telephone Encounter - Clyde Hale - 04/05/2021 8:32 AM CST Pt called to request a new A1c meter(does not need testing strips)plz call pt if you have questions MIC PLOTTER documented in this encounter Plan of Treatment Not on filedocumented as of this encounter Goals Goal Patient Goal Associated Recent Patient-Stated? Author Type Problems Progress Routine Health General No change No Domitila, Management (02/05/2021 Abbie Murray, 11:19 AM SEISMIC PLOTTER) RN Note: Formatting of this note is differe nt from the original. Routine Health Management Care Team Patient Care Team: Corrine Vazquez MD as PCP - General ([facility] Medicine) Yossi Potts, RN as Registered Nurse (Diabetes Education) Abbie Ramesh RN as Director Of Institutional Research Future Scheduled Appointments No future appointments. Health [...] [facility] [place] Pneumococcal Vaccine: <64 Completed [facility] Pneumococcal Vaccine: 65+ Years Com pleted HPV Vaccines Aged Out Notes: Due: Urine Protein screening Eye exam AWV A1C Lipid panel Diabetes Management General No change (02/05/2021 11:17 AM No Abbie Ramesh, RN SEISMIC PLOTTER) Note: Formatting of this note is differe [...] track (02/05/2021 Abbie Monzon RN 11:14 AM SEISMIC PLOTTER) Note: Formatting of this note is differe nt from the original. Cardiovascular Management Essential hypertension Chronic coronary artery disease Managed by (PCP; Cardiology; [facility]) Dr. Ronak lozoya MD (PCP)/Dr. [...] Primary documented in this encounter Care Teams Stove Fitter Relationship Specialty Start Date End Date Corrine Vazquez MD PCP - General Family Medicine 07/07/19 08/19/[address] [place] [address] documented as of this encounter
--- OUTSIDE RECORDS SUMMARY | 2021-12-10 15:15 | XMS_ITS | Clinical Summary ---
:1945 Author Organization [facility] Address [address] [place] [address] Care Team Providers Name Role Phone Adriane Patel Ronak DIRECTOR FURNITURE, INTERIOR SPECIALIST Primary Care Provider [phone] Allergies Active Allergy Reactions Severity Noted Date Comments Amlodipine 03/15/2021 Azathioprine Azithromycin Lisinopril Other (see comments) Medium 07/29/2018 nightma res Metoprolol 06/19/2020 Olmesartan Statins Other (see comments) 01/05/2019 Intoler ance to Statin Intolerance to Statin Medications Medication Sig Dispensed Refills Start End Date Status Date leflunomide (ARAVA) 20 Take 20 mg by 0 Active MG tabletIndications: mouth every Rheumatoid Arthritis other day nitroglycerin Place 0.4 mg 0 Act marty (NITROSTAT) 0.4 MG SL under the 9 tablet tongue Abatacept (ORENCIA IV) Infuse into a 0 Active venous catheter every 30 (thirty) days cholecalciferol, Total is 0 Act marty vitamin D3, 5,000 Units 20,000 per tablet tablet week Multiple Take by mouth 0 Active Vitamins-Minerals Contains Zinc (MULTIVITAMIN ADULT PO) per Groover Operator . Calcium Carbonate Take 1,000 mg 0 Active (CALCIUM 600 PO) by mouth 1 (one) time each day Polyvinyl Administer 1 0 Active Alcohol-Povidone drop into (REFRESH OP) affected eye(s) 3 (three) times a day Dry Eyes pen needle, diabetic USE TO INJECT 100 each 3 Active (1st Tier Unifine INSULIN ONCE A 0 Pentips Plus) 31G X 5 DAY MM miscIndications: Type 2 diabetes mellitus with other specified complication, without long-term current use of insulin (HCC) Accu-Chek FastClix Use to test 3 100 each 11 Active Lancets times daily. 0 miscIndications: Type 2 diabetes mellitus with other specified complication, with long-term current use of insulin ([facility]) UNABLE TO FIND Med Name: FISH 0 Active OIL, ZINC, TUMERIC Blood Glucose Use as 1 each 0 Active Monitoring Suppl directed to 1 w/Device check blood kitIndications: Type 2 sugars three diabetes mellitus times daily. without complication, with long-term current use of insulin ([facility]) Lancets Use as 100 each 11 Active miscIndications: Type 2 directed to 1 diabetes mellitus check blood without complication, sugar three with long-term current times daily. use of insulin ([facility]) Insulin Pen Needle 31G May check 1-2 100 each 3 Active X 4 MM miscIndications: times a day 1 Type 2 diabetes for diabetes mellitus without complication, with long-term current use of insulin ([facility]) metFORMIN XR Take 1 tablet 90 tablet 3 Act marty (GLUCOPHAGE-XR) 500 MG (500 mg total) 1 24 hr by mouth 1 tabletIndications: Type (one) time 2 diabetes mellitus each day with with other specified dinner complication, with long-term current use of insulin ([facility]) glipiZIDE (GLUCOTROL Take ONE pill 90 tablet 3 Active XL) 10 MG 24 hr ONCE a day for 1 tabletIndications: Type diabetes Do 2 diabetes mellitus not crush, with other specified chew, or complication, with split. long-term current use of insulin ([facility]) ferrous sulfate 325 (65 Take 1 tablet 90 tablet 3 Active Fe) MG (325 mg total) 1 tabletIndications: by mouth 1 Anemia, unspecified (one) time type each day with breakfast insulin glargine Take 22 units 15 mL 5 Active (Basaglar KwikPen) 100 once a day in 1 UNIT/ML the PM for injectionIndications: diabetes OR Type 2 diabetes DIRECTED mellitus with other specified complication, without long-term current use of insulin ([facility]) glucose blood test Use as 100 each 12/15/19 A ctive stripIndications: Type instructed to 1 22 2 diabetes mellitus check blood with other specified sugar 1-3x day complication, with long-term current use of insulin ([facility]) Lancets Use as 100 each 11 Active miscIndications: Type 2 instructed to 1 diabetes mellitus with check blood other specified sugar 1-3 x complication, with day. long-term current use of insulin ([facility]) fluconazole (Diflucan) Take ONE daily 3 tablet 2 Active 150 MG for three days 1 tabletIndications: for yeast Yeast vaginitis oxybutynin XL 0 Active (DITROPAN-XL) 5 MG 24 1 hr tablet triamcinolone (KENALOG) 0 Active 0.1 % cream 1 clindamycin (CLEOCIN) 2 0 Active % vaginal cream 1 hydroCHLOROthiazide Take ONE a day 90 tablet 3 Active (HYDRODIURIL) 12.5 MG in the AM for 2 tabletIndications: blood pressure Primary hypertension amLODIPine (Norvasc) 5 Take ONE a day 90 tablet 3 Active MG tabletIndications: for blood 2 Primary hypertension pressure glucose blood test CONTOUR NEXT to be used three times a day. 100 e ach 03/07/19 Active stripIndications: Type HgbA1c: 02/15/2020 8.6 2 23 2 diabetes mellitus Last visit: 03/06/2021 with other specified complication, with long-term current use of insulin ([facility]) Lancets (onetouch Microlet Lancets : Check blood sugar 3 times a day. 200 each 03/07/19 Active ultrasoft) HgbA1c: 02/15/2020 8.6 2 23 lancetsIndications: Last visit: 03/06/2021 Type 2 diabetes mellitus with other specified complication, with long-term current use of insulin ([facility]) Insulin Pen Needle 31G Use once daily to inject insulin 100 each 03/07/19 Active X 8 MM miscIndications: HgbA1c: 02/15/2020 8.6 2 23 Type 2 diabetes Last visit: 03/06/2021 mellitus with other specified complication, with long-term current use of insulin ([facility]) ALPRAZolam (XANAX) 0.5 TAKE ONE 15 tablet 2 Active MG tabletIndications: TABLET BY 2 Anxiety MOUTH EVERY 8 HOURS NEEDED FOR ANXIETY- MUST LAST 30 DAYS Blood Glucose Contour Next Glucose Meter: Use daily 1 kit 0 04/05/19 Active Monitoring Suppl (Blood HbgA1c: 8.6 02/14/2021 2 23 Glucose Monitor System) w/Device kitIndications: Type 2 diabetes mellitus with other specified complication, with long-term current use of insulin (HCC) levothyroxine TAKE ONE 90 tablet 1 Active (SYNTHROID) 75 MCG TABLET BY 2 tabletIndications: MOUTH EVERY Hypothyroidism, DAY unspecified type levothyroxine Take 1 tablet 90 tablet 3 11/26/19 Di scontinued (SYNTHROID) 75 MCG (75 mcg total) 1 22 tabletIndications: by mouth 1 Hypothyroidism, (one) time unspecified type each day Active Problems Problem Noted Date Chronic diarrhea 06/05/2020 Venous insufficiency 06/05/2020 Status post coronary artery stent placement 12/15/2019 Abnormal liver function test 09/12/2019 Pain of upper abdomen 06/13/2019 Stage 3 chronic kidney disease 08/27/2018 Edema 12/30/2017 Essential hypertension 12/30/2017 Benign paroxysmal positional vertigo 12/22/2017 Anemia 12/14/2017 Overview: Overview: Added automatically from request for cookie [email or web address] [id number] Type 2 diabetes mellitus with other specified complica tion 08/10/2017 Rheumatoid arthritis 05/12/2017 Paresthesia of skin 03/31/2017 Gout 07/28/2016 Anemia 06/26/2016 Other residential (current) drug therapy 03/31/2016 Hyperlipidemia 01/14/2016 Chronic coronary artery disease 02/05/2015 Overview: Overview: Coronary Artery Disease (CAD) [place] [facility] Chronic ischemic heart disease 02/05/2015 Overview: Overview: Coronary Artery Disease (CAD) [place] [facility] Subclinical hypothyroidism 10/26/2014 Cervicalgia 10/19/2014 Postoperative urinary tract infection 01/13/2014 Postmenopausal bleeding 11/10/2013 Postmenopausal atrophic vaginitis 08/09/2013 Other osteoporosis 09/14/2002 Encounters Date Type Specialty Care Team Description 11/23/2021 Refill Family Medicine Corrine Vazquez MD Hyp othyroidism, unspecified type from Last 3 Months Immunizations Name Administration [...] Comments Blood Pressure 162/86 03/06/2021 10:17 AM CAUL FAT PULLER Pulse 72 03/06/2021 10:17 AM CAUL FAT PULLER Temperature 37 ??C (98.6 ??F) 03/06/2021 9:35 AM CAUL FAT PULLER Respiratory Rate 14 03/06/2021 9:35 AM CAUL FAT PULLER Oxygen Saturation 97% 03/06/2021 9:35 AM CAUL FAT PULLER Inhaled Oxygen Concentration - - Weight 82.6 kg (182 lb) 03/06/2021 9:35 AM CAUL FAT PULLER Height 160.3 cm (5' 3.11) 03/06/2021 9:35 AM CAUL FAT PULLER Body Mass Index 32.13 03/06/2021 9:35 AM CAUL FAT PULLER Plan of Treatment Health Maintenance Due Date Last Done Comments Zoster Vaccines (2 of 2) 11/15/2015 09/20/2015, 08/28/2015 [facility] Annual Wellness 01/12/2021 01/13/2020 Diabetic Foot Exam 03/16/2021 03/16/2020, 07/15/2018, 02/24/2017 COVID-19 Vaccine (4 - 04/17/2021 12/18/2020, 05/15/2020, Booster for Pfizer series) 04/20/2020 Fall Risk Performed 06/05/2021 06/05/2020 Hemoglobin A1C 08/15/2021 02/14/2021, 07/25/2020, 06/15/2020, Additional history exists Mammogram 12/03/2021 12/03/2020, 12/02/2019, 11/26/2019, Additional history exists Lipid Panel 02/14/2022 02/14/2021, 09/06/2019, 03/17/2019, Additional history exists Urine Protein Screening 02/14/2022 02/14/2021, 06/01/2019, 02/24/2017, Additional history exists Glaucoma Screening 67+ Yr 03/08/2022 03/08/2021, 12/26/2019 , 12/17/2018 Ophthalmology Exam 03/08/2023 03/08/2021, 12/26/2019, 12/17/2018, Additional history exists Pneumococcal Vaccine: 65+ Completed 08/16/2019, 06/21/2014 , Years 01/28/2008 HPV Vaccines Aged Out No longer eligib le based on patient 's age to complete this topic Goals Goal Patient Goal Associated Recent Patient-Stated? Author Type Problems Progress Routine Health General No change Peter Monzon (02/05/2021 Abbie Murray 11:19 AM CAUL FAT PULLER) RN Note: Formatting of this note is differe nt from the original. Routine Health Management Care Team Patient Care Team: Corrine Vazquez MD as PCP - General ([facility] Medicine) Yossi Potts RN as Registered Nurse (Diabetes Education) Abbie Ramesh RN as Stripper Machine Operator Future Scheduled Appointments No future [...] change (02/05/2021 11:17 AM Abbie Monzon, RN [employer] P[employer]ER) Note: Formatting of this note is differe [...] track (02/05/2021 Abbie Monzon RN 11:14 AM CAUL FAT PULLER) Note: Formatting of this note is differe [...] Phone Addre ss Type Group MEDICARE MEDICARE [id number] 2010-Jerry [address] [place] [id number] BCBS OF [employer] [place] [id number] 2016-Jerry [address] [address] [place] [address] [place], [place] MEDICARE NON [id number] ADVANTAGE Care Teams Machine Straw Hat Presser Relationship Specialty Start Date End Date Adriane Patel, DIRECTOR FURNITURE, INTERIOR SPECIALIST PCP - General Family Medicine 08/20/[address] [place] [id number]
--- OUTSIDE RECORDS SUMMARY | 2021-12-10 15:16 | XMS_ITS | Encounter Summary ---
:1945 Author Organization [facility] Address [address] [place] [address] Care Team Providers Name Role Phone Corrine Vazquez MD Primary Care Provider Reason for Visit Consultation (Routine) - Closed Specialty Diagnoses / Procedures Referred By Contact Refer red To Contact Family Medicine Diagnoses Enrolled in chronic care management Essential hypertension Type 2 diabetes mellitus with other specified complication, with long-term current use of insulin (HCC) Mixed hyperlipidemia Corrine Vazquez MD Care Coordination [address] [place] [address] [address] [place], [place] [phone] Referral ID Status Reason Start Date Expiration Date Visits V isits Requested Authorized [id number] Closed Specialty 02/21/2020 03/18/2021 99 99 Services Required Encounter Details Date Type Department Care Team Description 11/02/2020 Patient Outreach SE Care Coordination Abbie Ramesh Counseling and coordination of care (Primary Dx); [address] [place] [address] Terri RN Type 2 diabetes mellitus with other spec ified complication, with long-term current use of insulin (HCC); [place] [address] [address] [facility] Essential hypertension [phone] [place] [address] Social History Tobacco Use Types [...] 12/23/2018 organizations such as baptism groups, unions, fraContextors or athletic groups, or school groups? How [...] Nurse (Diabetes Education) Abbie Ramesh RN as Can Filler Future Scheduled Appointments No future appointments. Health Maintenance Health Maintenance Topic Date Due ??? Urine Protein Screening 05/31/2020 ??? COVID-19 Vaccine (3 - Pfizer risk 3-dose series) 06/12/2020 ??? Lipid Panel 09/05/2020 ??? Hemoglobin A1C 10/25/2020 ??? Mammogram 12/01/2020 ??? Colorectal Cancer Screening: Colonoscopy 05/21/2021 ??? Glaucoma Screening 67+ Yr 12/25/2020 ??? Ophthalmology Exam 12/25/2020 ??? [facility] [place] Wellness 01/12/2021 ??? Diabetic Foot Exam 03/16/2021 ??? Fall Risk Performed 06/05/2021 ? ? [facility] Pneumococcal Vaccine: <64 Completed ??? [facility] Pneumococcal Vaccine: 65+ Years Completed ??? HPV Vaccines Aged Out Notes: ??? Urine Protein screening due documented in this encounter Plan of Treatment Not on filedocumented as of this encounter Goals Goal Patient Goal Associated Recent Patient-Stated? Author Type Problems Progress Routine Health General No change No Domitila, Management (02/05/2021 Abbie Murray, 11:19 AM C S S REPRESENTATIVE) RN Note: Formatting of this note is differe nt from the original. Routine Health Management Care Team Patient Care Team: Corrine V[facility] MD as [facility] - [facility] Yossi Potts RN as Registered Nurse (Diabetes Education) Abbie Ramesh RN as Can Filler Future Scheduled Appointments No future appointments. Health Maintenance Health Maintenance Topic Date Due Urine Protein Screening 05/31/2020 Lipid Panel 09/05/2020 Glaucoma Screening 67+ Yr 12/25/2020 Ophthalmology Exam 12/25/2020 [facility] [place] Wellness 01/12/2021 Hemoglobin A1C 01/24/2021 Diabetic Foot Exam 03/16/2021 Colorectal Cancer Screening: Colonoscop y 05/21/2021 Fall Risk Performed 06/05/2021 Mammogram 12/03/2021 COVID-19 Vaccine Completed [facility] Pneumococcal Vaccine: <64 Completed [facility] Pneumococcal Vaccine: 65+ Years Com pleted HPV Vaccines Aged Out Notes: Due: Urine Protein screening Eye exam AWV A1C Lipid panel Diabetes Management General No change (02/05/2021 11:17 AM No Abbie Ramesh, RN C S S REPRESENTATIVE) Note: Formatting of this note is [...] (02/05/2021 No Abbie Ramesh RN 11:14 AM C S S REPRESENTATIVE) Note: Formatting of this note is [...] hypertension documented in this encounter Care Teams Refinery Operator Crude Unit Relationship Specialty Start Date End Date Corrine Vazquez MD PCP - General Family Medicine 07/07/19 08/19/[address] [place] [address] documented as of this encounter
--- OUTSIDE RECORDS SUMMARY | 2021-12-10 15:16 | XMS_ITS | Encounter Summary ---
:1945 Author Organization [facility] Address [address] [place] [address] Care Team Providers Name Role Phone Corrine Vazquez MD Primary Care Provider Reason for Visit Reason Onset Date Comments flu shot info 11/14/2020 Encounter Details Date Type Department Care Team Description 11/14/2020 Telephone [place] Corrine Vazquez MD flu shot info [address] [place], [place] [address] [place], [place] [phone] (Wo rk) Social History Tobacco Use Types [...] the live dose. Please call Pt at [phone] to advise, leaving a message if no answer. documented in this encounter Plan of Treatment Not on filedocumented as of this encounter Goals Goal Patient Goal Associated Recent Patient-Stated? Author Type Problems Progress Routine Health General No change Hailee Ramesh, Peter (02/05/2021 Abbie Murray, 11:19 AM [facility]) RN Note: Formatting of this note is differe nt from the original. Routine Health Management Care Team Patient Care Team: Corrine Vazquez MD as [facility] - [facility] Yossi Potts, RN as Registered Nurse (Diabetes Education) Abbie Ramesh RN as Direct Selling Counselor Future Scheduled Appointments No future appointments. [...] [facility] Pneumococcal Vaccine: <64 Completed [place] Pneumococcal Vaccine: 65+ Years Com pleted HPV Vaccines Aged Out Notes: Due: Urine Protein screening Eye exam AWV A1C Lipid panel Diabetes Management General No change (02/05/2021 11:17 AM Abbie Monzon, RN [facility]) Note: Formatting of this note is differe [...] (02/05/2021 No Abbie Ramesh RN 11:14 AM [facility]) Note: Formatting of this note is differe [...] on filedocumented in this encounter Care Teams Major Account Representative Relationship Specialty Start Date End Date Corrine Vazquez MD PCP - General Family Medicine 07/07/19 08/19/[address] [place] [address] documented as of this encounter
--- OUTSIDE RECORDS SUMMARY | 2021-12-10 15:16 | XMS_ITS | Encounter Summary ---
:1945 Author Organization [facility] Address [address] [place] [address] Care Team Providers Name Role Phone Corrine Vazquez MD Primary Care Provider Reason for Visit Reason Onset Date Comments Labs and Rx 01/24/2021 Encounter Details Date Type Department Care Team Description 01/24/2021 Telephone [place] Corrine Vazquez MD Labs and Rx [address] [place], [place] [address] [place], [place] [phone] (Wo rk) Social History Tobacco Use Types [...] - 01/25/2021 10:26 AM CST Patient informed TRY HUSBANDRY TEACHER Telephone Encounter - Corrine Vazquez MD - [...] she can certainly continue to take that. TRY HUSBANDRY TEACHER Telephone Encounter - Margareth Sanchez RN - 01/24/2021 2:55 PM CST Patients last A1c 07/25/20, due now. Order pended. Patients last TSH was 03/08 should she have this done again 03/09? Please advise on recommendations for Oxybutin. TRY HUSBANDRY TEACHER Telephone Encounter - Luciana Albarado - 01/24/2021 2:50 PM CST Pt ca;;aed asking if it's time her for to come in to have her A1C and thyroid checked. Pt also wanted Dr. Vazquez to know a physician she saw at [facility] wants to start her on Oxybutynin ER, and she wants to know what he thinks of that. Please call Pt at [phone] to advise. TRY HUSBANDRY TEACHER documented in this encounter Plan of Treatment Not on filedocumented as of this encounter Goals Goal Patient Goal Associated Recent Patient-Stated? Author Type Problems Progress Routine Health General No change No Domitila, Management (02/05/2021 Abbie Murray, 11:19 AM POULTRY HUSBANDRY TEACHER) RN Note: Formatting of this note is differe nt from the original. Routine Health Management Care Team Patient Care Team: Corrine Vazquez MD as PCP - General ([facility] Medicine) Yossi Potts, RN as Registered Nurse (Diabetes Education) Abbie Ramesh RN as Manga Artist Future Scheduled Appointments No future appointments. Health Maintenance Health Maintenance Topic Date Due Urine Protein Screening 05/31/2020 Lipid Panel 09/05/2020 Glaucoma Screening 67+ Yr 12/25/2020 Ophthalmology Exam 12/25/2020 [facility] Annual Wellness 01/12/2021 Hemoglobin A1C 01/24/2021 Diabetic Foot Exam 03/16/2021 Colorectal Cancer Screening: Colonoscop y 05/21/2021 Fall Risk Performed 06/05/2021 Mammogram 12/03/2021 COVID-19 Vaccine Completed [facility] Pneumococcal Vaccine: <64 Completed [facility] Pneumococcal Vaccine: 65+ Years Com pleted HPV Vaccines Aged Out Notes: Due: Urine Protein screening Eye exam AWV A1C Lipid panel Diabetes Management General No change (02/05/2021 11:17 AM No Abbie Ramesh, RN POULTRY HUSBANDRY TEACHER) Note: Formatting of this note is [...] track (02/05/2021 Abbie Monzon RN 11:14 AM POULTRY HUSBANDRY TEACHER) Note: Formatting of this note is [...] Primary documented in this encounter Care Teams Apprentice Embalmer Relationship Specialty Start Date End Date Corrine Vazquez MD PCP - General Family Medicine 07/07/19 08/19/[address] [place] [address] documented as of this encounter
--- OUTSIDE RECORDS SUMMARY | 2021-12-10 15:16 | XMS_ITS | Encounter Summary ---
:1945 Author Organization [facility] Address [address] [place] [address] Care Team Providers Name Role Phone Corrine Vazquez MD Primary Care Provider Encounter Details Date Type Department Care Team Description 12/10/2020 Telephone [place] Corrine Vazquez MD [address] [place], [place] [address] [place], [place] [phone] (Wo rk) Social History Tobacco Use Types [...] encounter Miscellaneous Notes Telephone Encounter - Margareth Sanchze RN - 12/10/2020 9:[address] Vazquez patient's mammogram is normal repeat in 1 year, patient informed. documented in this encounter Plan of Treatment Not on filedocumented as of this encounter Goals Goal Patient Goal Associated Recent Patient-Stated? Author Type Problems Progress Routine Health General No change Peter Monzon (02/05/2021 Abbie Murray 11:19 AM ESOL TEACHER) RN Note: Formatting of this note is differe nt from the original. Routine Health Management Care Team Patient Care Team: Corrine Vazquez MD as PCP - [facility] Yossi Potts RN as Registered Nurse (Diabetes Education) Abbie Ramesh, RN as It Training Specialist Future Scheduled Appointments No future appointments. [...] change (02/05/2021 11:17 AM Abbie Monzon, RN ESOL TEACHER) Note: Formatting of this note is [...] (02/05/2021 No Abbie Ramesh RN 11:14 AM ESOL TEACHER) Note: Formatting of this note is [...] on filedocumented in this encounter Care Teams Traffic Rate Analyst Relationship Specialty Start Date End Date Corrine Vazquez MD PCP - General Family Medicine 07/07/19 08/19/[address] [place] [address] documented as of this encounter
--- OUTSIDE RECORDS SUMMARY | 2021-12-10 15:16 | XMS_ITS | Encounter Summary ---
:1945 Author Organization [facility] Address [address] [place] [address] Care Team Providers Name Role Phone Corrine Vazquez MD Primary Care Provider Reason for Visit Consultation (Routine) - Closed Specialty Diagnoses / Procedures Referred By Contact Refer red To Contact Family Medicine Diagnoses Enrolled in chronic care management Essential hypertension Type 2 diabetes mellitus with other specified complication, with long-term current use of insulin (HCC) Mixed hyperlipidemia Corrine Vazquez MD Care Coordination [address] [facility] [address] [place], [place] [phone] Referral ID Status Reason Start Date Expiration Date Visits V isits Requested Authorized [id number] Closed Specialty 02/21/2020 03/18/2021 99 99 Services Required Encounter Details Date Type Department Care Team Description 02/05/2021 Patient Outreach SE Care Coordination Abbie Ramesh Counseling and coordination of care (Primary Dx); [address] [place] [address] Terri RN Type 2 diabetes mellitus with other spec ified complication, with long-term current use of insulin (HCC); [place] [address] [address] Essential hypertension; [phone] [facility] Rheumatoid arthritis, involving unspecif ied site, unspecified whether rheumatoid factor present ([facility] [place] [address] Social History Tobacco Use Types [...] Cardiology; [facility]) Dr. Taylor MD (PCP)/Dr. Tena [...] Nurse (Diabetes Education) Abbie Ramesh RN as Film Spooler Future Scheduled Appointments No future appointments. Health Maintenance Health Maintenance Topic Date Due ??? Urine Protein Screening 05/31/2020 ??? Lipid Panel 09/05/2020 ??? Glaucoma Screening 67+ Yr 12/25/2020 ??? Ophthalmology Exam 12/25/2020 ??? [facility] Annual [...] ??? AWV ??? A1C ??? Lipid panel MS CLERK documented in this encounter Plan of Treatment Not on filedocumented as of this encounter Goals Goal Patient Goal Associated Recent Patient-Stated? Author Type Problems Progress Routine Health General No change No Domitila Management (02/05/2021 Abbie Murray, 11:19 AM CLAIMS CLERK) RN Note: Formatting of this note is differe nt from the original. Routine Health Management Care Team Patient Care Team: Corrine Vazquez MD as PCP - General ([facility] Medicine) Yossi Potts RN as Registered Nurse (Diabetes Education) Abbie Ramesh RN as Film Spooler Future Scheduled Appointments No future appointments. Health [...] (02/05/2021 11:17 AM No Abbie Ramesh, RN CLAIMS CLERK) Note: Formatting of this note is [...] track (02/05/2021 Abbie Monzon RN 11:14 AM CLAIMS CLERK) Note: Formatting of this note is [...] (HCC) documented in this encounter Care Teams Electric Well Logging Operator Relationship Specialty Start Date End Date Corrine Vazquez MD PCP - General Family Medicine 07/07/19 08/19/[address] [place] [address] documented as of this encounter
--- OUTSIDE RECORDS SUMMARY | 2021-12-10 15:16 | XMS_ITS | Encounter Summary ---
:1945 Author Organization [facility] Address [address] [place] [address] Care Team Providers Name Role Phone Corrine Herrera MD Primary Care Provider Reason for Visit Reason Comments Diabetic Review Encounter Details Date Type Department Care Team Description 03/06/2021 Office Visit Chuckie Pierre Corrine Herrera Type 2 diabetes mellitus wit h other specified complication, with long-term current use of insulin (HCC) (Primary Dx); [address] [place] Primary hypertension; [place], [place] [address] Hypothyroidism, unspecified type [phone] [place] [address] Social History Tobacco Use Types Packs/Day Years [...] Comments Blood Pressure 162/86 03/06/2021 10:17 AM IMMIGRATION GUARD Pulse 72 03/06/2021 10:17 AM IMMIGRATION GUARD Temperature 37 ??C (98.6 ??F) 03/06/2021 9:35 AM IMMIGRATION GUARD Respiratory Rate 14 03/06/2021 9:35 AM IMMIGRATION GUARD Oxygen Saturation 97% 03/06/2021 9:35 AM IMMIGRATION GUARD Inhaled Oxygen Concentration - - Weight 82.6 kg (182 lb) 03/06/2021 9:35 AM IMMIGRATION GUARD Height 160.3 cm (5' 3.11) 03/06/2021 9:35 AM IMMIGRATION GUARD Body Mass Index 32.13 03/06/2021 9:35 AM IMMIGRATION GUARD documented in this encounter Progress Notes Corrine [...] pressure check. RHEUMATOID ARTHRITIS patient has a director of admissions to adjust all of her rheumatological medications. [...] forth to be sent to [facility] in [facility] as it would be better covered there as compared to her current pharmacy. All of her other medications she like to still go to the local pharmacy. Review of Systems Objective Physical Exam Assessment/Plan Diagnoses and all orders for this visit: Type 2 diabetes mellitus with other specified complication, with long-term current use of insulin ([facility]) Primary hypertension - hydroCHLOROthiazide (HYDRODIURIL) 12.5 MG [...] Order her diabetic supplies through [facility] in [place] CONSULT TIME 25 minutes on old 25 minutes was spent in review of her chart her medications her ambulatory test and so forth GRATION GUARD Lana Bledsoe LPN - 03/06/2021 9:40 AM CST Nurse Note Family [facility] GRATION GUARD Corrine Herrera MD - 03/06/2021 9:40 AM CST You can fax the DME for her diabetic supplies to [facility] in [place]. Then call the patient let her know that she can picking tech her diabetic supplies at [facility] in [place]. All of [facility] other [facility]have [facility]. GRATION GUARD documented in this encounter Miscellaneous Notes Addendum Note - Lana Bledsoe LPN - 03/06/2021 9:40 AM IMMIGRATION GUARD Addended by: LANA BLEDSOE on: 03/07/2021 10:56 AM Modules accepted: Orders GRATION GUARD Addendum Note - Corrine Herrera MD - 03/06/2021 9:40 AM IMMIGRATION GUARD Addended by: Corrine HERRERA on: 03/07/2021 03:08 PM Modules accepted: Orders GRATION GUARD documented in this encounter Plan of Treatment [...] No change No Domitila, Management (02/05/2021 Abbie Mruray, 11:19 AM IMMIGRATION GUARD) RN Note: Formatting of this note is differe nt from the original. Routine Health Management Care Team Patient Care Team: Corrine Herrera MD as PCP - General ([facility] Medicine) Yossi Potts, RN as Registered Nurse (Diabetes Education) Abbie Ramesh, RN as Travel Rn Or Future Scheduled Appointments No future appointments. Health [...] (02/05/2021 11:17 AM No Abbie Ramesh, RN IMMIGRATION GUARD) Note: Formatting of this note is differe [...] track (02/05/2021 Abbie Monzon RN 11:14 AM IMMIGRATION GUARD) Note: Formatting of this note is differe [...] type documented in this encounter Care Teams Sampler Pickup Relationship Specialty Start Date End Date Corrine Herrera MD PCP - General Family Medicine 07/07/19 08/19/[address] [place] [address] documented as of this encounter
--- OUTSIDE RECORDS SUMMARY | 2021-12-10 15:16 | XMS_ITS | Encounter Summary ---
:1945 Author Organization [facility] Address [address] [place] [address] Care Team Providers Name Role Phone Corrine Vazquez MD Primary Care Provider Reason for Visit Reason Comments Skin tags Encounter Details Date Type Department Care Team Description 10/08/2020 Office Visit Chuckie Pierre Corrine Vazquez Skin lesion (Primary Dx); [address] [place] Skin tag; [place], [place] [address] Asymptomatic varicose veins of both lower extremities [phone] [place] [address] Social History Tobacco Use Types Packs/Day Years [...] Peter Monzon (02/05/2021 Abbie Murray, 11:19 AM EVENT SECURITY OFFICER) RN Note: Formatting of this note is differe nt from the original. Routine Health Management Care Team Patient Care Team: Corrine Vazquez MD as PCP - General ([facility] Medicine) Yossi Potts RN as Registered Nurse (Diabetes Education) Abbie Ramesh, ERA as Transit Driver Future Scheduled Appointments No future appointments. Health Maintenance Health Maintenance Topic Date Due Urine Protein Screening 05/31/2020 Lipid Panel 09/05/2020 Glaucoma Screening 67+ Yr 12/25/2020 Ophthalmology Exam 12/25/2020 [facility] Annual Wellness 01/12/2021 Hemoglobin A1C 01/24/2021 Diabetic Foot Exam 03/16/2021 Colorectal Cancer Screening: Colonoscop y 05/21/2021 Fall Risk Performed 06/05/2021 Mammogram 12/03/2021 COVID-19 Vaccine Completed [facility] Pneumococcal Vaccine: <64 Completed [facility] Pneumococcal Vaccine: 65+ Years Com pleted HPV Vaccines Aged Out Notes: Due: Urine Protein screening Eye exam AWV A1C Lipid panel Diabetes Management General No change (02/05/2021 11:17 AM Abbie Monzon, RN EVENT SECURITY OFFICER) Note: Formatting of this note is [...] track (02/05/2021 Abbie Monzon RN 11:14 AM EVENT SECURITY OFFICER) Note: Formatting of this note is [...] extremities documented in this encounter Care Teams Chair Springer Relationship Specialty Start Date End Date Corrine Vazquez MD PCP - General Family Medicine 07/07/19 08/19/[address] [place] [address] documented as of this encounter
--- OUTSIDE RECORDS SUMMARY | 2021-12-10 15:16 | XMS_ITS | Encounter Summary ---
:1945 Author Organization [facility] Address [address] [place] [address] Care Team Providers Name Role Phone Corrine Vazquez MD Primary Care Provider Reason for Visit Reason Onset Date Comments med refill 12/05/2020 Encounter Details Date Type Department Care Team Description 12/05/2020 Telephone [place] Corrine Vazquez MD med refill [address] [place], [place] [address] [place], [place] [phone] (Wo rk) Social History Tobacco Use Types [...] [facility] patient[facility]. Telephone Encounter - Sherice Laura - 12/05/2020 11:01 AM CDT Patient needs a refill on her thyroid med and lantus pens. Send to [facility]. documented in this encounter Plan of Treatment Not on filedocumented as of this encounter Goals Goal Patient Goal Associated Recent Patient-Stated? Author Type Problems Progress Routine Health General No change No Domitila Management (02/05/2021 Abbie Murray, 11:19 AM GENERAL LABORER) RN Note: Formatting of this note is differe nt from the original. Routine Health Management Care Team Patient Care Team: Corrine Vazquez MD as PCP - General ([facility]) Yossi Potts, RN as Registered Nurse (Diabetes Education) Abbie Ramesh, RN as Staff Mechanical Engineer Future Scheduled Appointments No future appointments. [...] (02/05/2021 11:17 AM No Abbie Ramesh, RN GENERAL LABORER) Note: Formatting of this note is differe [...] (02/05/2021 No Abbie Ramesh RN 11:14 AM GENERAL LABORER) Note: Formatting of this note is differe [...] (HCC) documented in this encounter Care Teams Retail Cashier Associate Relationship Specialty Start Date End Date Corrine Vazquez MD PCP - General Family Medicine 07/07/19 08/19/[address] [place] [address] documented as of this encounter
--- OUTSIDE RECORDS SUMMARY | 2021-12-10 15:16 | XMS_ITS | Encounter Summary ---
:1945 Author Organization [facility] Address [address] [place] [address] Care Team Providers Name Role Phone Corrine Vazquez MD Primary Care Provider Encounter Details Date Type Department Care Team Description 02/05/2021 Orders Only SE Care Coordination Corrine Vazquez Type 2 diabetes [address] [facility] MD [place] [address] specified complication, [place] with long-term current [place], [place] use of insu [place] ([facility]) [phone] (Primary Dx) Social History Tobacco Use Types [...] More than 4 times per year 12/23/2018 yarsanism services? Do you belong to any clubs [...] Monzon (02/05/2021 Abbie Murray, 11:19 AM RETAIL SALES PROFESSIONAL) RN Note: Formatting of this note is differe nt from the original. Routine Health Management Care Team Patient Care Team: Corrine Vazquez MD as PCP - General ([facility] Medicine) Yossi Potts RN as Registered Nurse (Diabetes Education) Abbie Ramesh RN as Launch Engineer Future Scheduled Appointments No future appointments. Health Maintenance Health Maintenance Topic Date Due Urine Protein Screening 05/31/2020 Lipid Panel 09/05/2020 Glaucoma Screening 67+ Yr 12/25/2020 Ophthalmology Exam 12/25/2020 [facility] Annual Wellness 01/12/2021 Hemoglobin A1C 01/24/2021 Diabetic Foot Exam 03/16/2021 Colorectal Cancer Screening: Colonoscop y 05/21/2021 Fall Risk Performed 06/05/2021 Mammogram 12/03/2021 COVID-19 Vaccine Completed [facility] Pneumococcal Vaccine: <64 Completed [facility] Pneumococcal Vaccine: 65+ Years Com pleted HPV Vaccines Aged Out Notes: Due: Urine Protein screening Eye exam AWV A1C Lipid panel Diabetes Management General No change (02/05/2021 11:17 AM No Abbie Ramesh, RN RETAIL SALES PROFESSIONAL) Note: Formatting of this note is differe [...] (02/05/2021 No Abbie Ramesh RN 11:14 AM RETAIL SALES PROFESSIONAL) Note: Formatting of this note is differe [...] Results (ABNORMAL) Microalbumin/Creatinine Ratio (02/14/2021 9:10 AM RETAIL SALES PROFESSIONAL) [facility] Method Time Signature Microalbumin,m 104.3 (H) 0.0 - 16.6 02/14/2021 [place] g/day mg/L 1:37 PM [facility] Comment: . Creatinine, Urine 257 mg/dL 02/14/2021 1:37 PM [facility] Comment: No established reference range. Microalb/Creat Ratio 41 (H) 0 - 24 mg/g 02/14/2021 1:[address] [facility] Specimen Anatomical Collection Method Collection Time Receive d Time (Source) Location / / Volume Laterality Urine (Urine, 02/14/2021 9:10 AM 02/15/20 21 Clean Catch) RETAIL SALES PROFESSIONAL 12:48 PM RETAIL SALES PROFESSIONAL D. [place] Vazquez MD LAB URINE ORDERABLES Performing Organization Address City/State/ZIP Code Phon e Number [facility] [address] [place] [address] documented in this encounter Visit Diagnoses Diagnosis Type 2 diabetes mellitus with other spec ified complication, with long-term current use of insulin (HCC) - Primary documented in this encounter Care Teams Botany Teacher Relationship Specialty Start Date End Date Corrine Vazquez MD PCP - General Family Medicine 07/07/19 08/19/21 [address] [place] [address] documented as of this encounter
--- OUTSIDE RECORDS SUMMARY | 2021-12-10 15:16 | XMS_ITS | Encounter Summary ---
:[address] [facility] Address [address] [place] [address] Care Team Providers Name Role Phone Corrine Vazquez MD Primary Care Provider Encounter Details Date Type Department Care Team Description 11/22/2020 Orders Only [place] Corrine Vazquez MD [address] [facility] [address] [place], [place] [address] [place], [place] [phone] (Wo rk) Social History Tobacco Use Types [...] Domitila, Management (02/05/2021 Abbie Murray, 11:19 AM SECURITY SYSTEM ADMINISTRATOR) RN Note: Formatting of this note is differe nt from the original. Routine Health Management Care Team Patient Care Team: Corrine Vazquez MD as PCP - General ([facility] Medicine) Yossi Potts, RN as Registered Nurse (Diabetes Education) Abbie Ramesh RN as Hair And Makeup Designer Future Scheduled Appointments No future appointments. Health [...] 11:17 AM No Abbie Ramesh, RN SECURITY SYSTEM ADMINISTRATOR) Note: Formatting of this note [...] track (02/05/2021 Abbie Monzon RN 11:14 AM SECURITY SYSTEM ADMINISTRATOR) Note: Formatting of this note is differe nt from the original. Cardiovascular Management Essential hypertension Chronic coronary artery disease Managed by (PCP; Cardiology; [facility]) Dr. Ronak lozoya MD (PCP)/Dr. Tena [...] on filedocumented in this encounter Care Teams Head Silverman Relationship Specialty Start Date End Date Corrine Vazquez MD PCP - General Family Medicine 07/07/19 08/19/[address] [place] [address] documented as of this encounter
--- OUTSIDE RECORDS SUMMARY | 2021-12-10 15:16 | XMS_ITS | Encounter Summary ---
:1945 Author Organization [facility] Address [address] [place] [address] Care Team Providers Name Role Phone Corrine Vazquez MD Primary Care Provider Reason for Visit Consultation (Routine) - Closed Specialty Diagnoses / Procedures Referred By Contact Refer red To Contact Family Medicine Diagnoses Enrolled in chronic care management Essential hypertension Type 2 diabetes mellitus with other specified complication, with long-term current use of insulin (HCC) Mixed hyperlipidemia Corrine Vazquez MD Care Coordination [facility] [address] [place] [address] [place], [place] [phone] Referral ID Status Reason Start Date Expiration Date Visits V isits Requested Authorized [id number] Closed Specialty 02/21/2020 03/18/2021 99 99 Services Required Encounter Details Date Type Department Care Team Description 09/07/2020 Patient Outreach SE Care Coordination Abbie Ramesh Counseling and coordination of care (Primary Dx); [address] [place] [address] Terri RN Type 2 diabetes mellitus with other spec ified complication, with long-term current use of insulin (HCC) [place] [address] [address] [facility] [phone] [place] [address] Social History Tobacco Use Types [...] 12/23/2018 organizations such as restoration groups, unions, [employer]ap[employer] or athletic groups, or school groups? How [...] Monzon (02/05/2021 Abbie Murray, 11:19 AM HYDROGEN PLANT OPERATIONS MANAGER) RN Note: Formatting of this note is differe nt from the original. Routine Health Management Care Team Patient Care Team: Corrine Vazquez MD as PCP - General ([facility] Medicine) Yossi Potts RN as Registered Nurse (Diabetes Education) Abbie Ramesh RN as Rip And Groove Machine Operator Future Scheduled Appointments No future appointments. Health Maintenance Health Maintenance Topic Date Due Urine Protein Screening 05/31/2020 Lipid Panel 09/05/2020 Glaucoma Screening 67+ Yr 12/25/2020 Ophthalmology Exam 12/25/2020 [facility] Annual Wellness 01/12/2021 Hemoglobin A1C 01/24/2021 Diabetic Foot Exam 03/16/2021 Colorectal Cancer Screening: Colonoscop y 05/21/2021 Fall Risk Performed 06/05/2021 Mammogram 12/03/2021 COVID-19 Vaccine Completed [facility] Pneumococcal Vaccine: <64 Completed [facility] Pneumococcal Vaccine: 65+ Years Com pleted HPV Vaccines Aged Out Notes: Due: Urine Protein screening Eye exam AWV A1C Lipid panel Diabetes Management General No change (02/05/2021 11:17 AM No Abbie Ramesh, RN HYDROGEN PLANT OPERATIONS MANAGER) Note: Formatting of this note is [...] (02/05/2021 No Abbie Ramesh, RN 11:14 AM HYDROGEN PLANT OPERATIONS MANAGER) Note: Formatting of this note is [...] (HCC) documented in this encounter Care Teams Truck Caterer Relationship Specialty Start Date End Date Corrine Vazquez MD PCP - General Family Medicine 07/07/19 08/19/[address] [place] [address] documented as of this encounter
--- OUTSIDE RECORDS SUMMARY | 2021-12-10 15:16 | XMS_ITS | Encounter Summary ---
:1945 Author Organization [facility] Address [address] [place] [address] Care Team Providers Name Role Phone Corrine Vazquez MD Primary Care Provider Reason for Visit Reason Onset Date Comments prescription location change 12/12/2020 Encounter Details Date Type Department Care Team Description 12/12/2020 Telephone Industry Corrine Vazquez prescription location [address] [facility] [address] MD [place] change [place], [place] [address] [place] [address] [place] [address] Social History Tobacco Use Types Packs/Day Years [...] [facility] as requested. Telephone Encounter - Magrareth Sanchez RN - 12/17/2020 8:33 AM CDT [...] strips and lancets refilled. The pharmacy in [place] she had been using is closing. Pt would like these sent to [facility] now. Please call Pt at [phone] to advise. documented in this encounter Plan of Treatment Not on filedocumented as of this encounter Goals Goal Patient Goal Associated Recent Patient-Stated? Author Type Problems Progress Routine Health General No change No Domitila, Management (02/05/2021 Abbie Murray, 11:19 AM CUSTOMER ACCOUNT REPRESENTATIVE) RN Note: Formatting of this note is differe nt from the original. Routine Health Management Care Team Patient Care Team: Corrine Vazquez MD as PCP - General ([facility] Medicine) Yossi Potts, RN as Registered Nurse (Diabetes Education) Abbie Ramesh, RN as Electronic Equipment Maint Tech Future Scheduled Appointments No future appointments. Health [...] (02/05/2021 11:17 AM No Abbie Ramesh, RN CUSTOMER ACCOUNT REPRESENTATIVE) Note: Formatting of this note is [...] (02/05/2021 No Abbie Ramesh RN 11:14 AM CUSTOMER ACCOUNT REPRESENTATIVE) Note: Formatting of this note is [...] Primary documented in this encounter Care Teams Presidential Helicopter Crew Chief Relationship Specialty Start Date End Date Corrine Vazquez MD PCP - General Family Medicine 07/07/19 08/19/[address] [place] [address] documented as of this encounter
--- OUTSIDE RECORDS SUMMARY | 2021-12-10 15:16 | XMS_ITS | Encounter Summary ---
:1945 Author Organization [facility] Address [address] [place] [address] Care Team Providers Name Role Phone Corrine Vazquez MD Primary Care Provider Reason for Visit Reason Comments Skin tag removal Encounter Details Date Type Department Care Team Description 11/09/2020 Office Visit [place] Corrine Vazquez Skin lesion (Primary Dx); [address] [place] Type 2 diabetes mellitus with other spec ified complication, with long-term current use of insulin (HCC); [place] [address] Anemia, unspecified type; [phone] [place] Immunization due ABEBA Vieira [phone] Social History Tobacco Use Types Packs/Day Years [...] Peter Ramesh (02/05/2021 Abbie Murray, 11:19 AM OXYGEN EQUIPMENT TECHNICIAN) RN Note: Formatting of this note is differe nt from the original. Routine Health Management Care Team Patient Care Team: Corrine Vazquez MD as PCP - General ([facility] Medicine) Yossi Potts, RN as Registered Nurse (Diabetes Education) Abbie Ramesh RN as Door Repairer Bus Future Scheduled Appointments No future appointments. Health Maintenance Health Maintenance Topic Date Due Urine Protein Screening 05/31/2020 Lipid Panel 09/05/2020 Glaucoma Screening 67+ Yr 12/25/2020 Ophthalmology Exam 12/25/2020 [facility] [place] 01/12/2021 Hemoglobin A1C [...] (02/05/2021 11:17 AM No Abbie Ramesh RN OXYGEN EQUIPMENT TECHNICIAN) Note: Formatting of this note is [...] (02/05/2021 No Abbie Ramesh RN 11:14 AM OXYGEN EQUIPMENT TECHNICIAN) Note: Formatting of this note is differe nt from the original. Cardiovascular Management Essential hypertension Chronic coronary artery disease Managed by (PCP; Cardiology; [facility]) Dr. Ronak lozoya MD (PCP)/Dr. Tena [...] 2:51 PM 9:15 CDT AM CDT Narrative [facility] - 10/18 12:08 PM CDT ? [facility] ? [address] ?[place] [address] ? Patient: ?MARCIAL BAZAN ?Procedure: ? 11/09/2020 14:51 /Age/Sex: ??1945, 75 Y, F ?Received: ?11/12/2020 09:15 ? Accession #: ?? [id number] Billing: ?[id number] ? Patient Location: [facility] ? OFFICE [...] completely submitted in cassette A1. REGGIE Yoder ([facility]) CM Patient's identification labels match on requisition [...] Organization Address City/State/ZIP Code Phon e Number [facility] [address] [place] [address] documented in this encounter Visit Diagnoses Diagnosis [...] dose documented in this encounter Care Teams Cad Engineer Relationship Specialty Start Date End Date Corrine Vazquez MD PCP - General Family Medicine 07/07/19 08/19/[address] [place] [address] documented as of this encounter
--- OUTSIDE RECORDS SUMMARY | 2021-12-10 15:16 | XMS_ITS | Encounter Summary ---
:1945 Author Organization [facility] Address [address] [place] [address] Care Team Providers Name Role Phone Corrine Vazquez MD Primary Care Provider Encounter Details Date Type Department Care Team Description 12/11/2020 Telephone [place] Corrine Vazquez MD [address] [place], [place] [address] [place], [place] [phone] [address] (Wo rk) Social History Tobacco Use Types [...] 12/11/2020 4:42 PM CDT Referral faxed to [facility] HERNANDEZ as requested. Telephone Encounter - Margareth Sanchez RN - 12/11/2020 4:26 PM CDT Please re fax referral for Humberto HERNANDEZ documented in this encounter Plan of Treatment Not on filedocumented as of this encounter Goals Goal Patient Goal Associated Recent Patient-Stated? Author Type Problems Progress Routine Health General No change No Domitila, Peter (02/05/2021 Abbie Murray, 11:19 AM MOLDER WAX BALL) RN Note: Formatting of this note is differe nt from the original. Routine Health Management Care Team Patient Care Team: Corrine Vazquez MD as PCP - General ([facility] Medicine) Yossi Potts RN as Registered Nurse (Diabetes Education) Abbie Ramesh RN as Senior Analytical Chemist Future Scheduled Appointments No future appointments. Health [...] change (02/05/2021 11:17 AM Abbie Monzon, RN MOLDER WAX BALL) Note: Formatting of this note is differe [...] track (02/05/2021 Abbie Monzon RN 11:14 AM MOLDER WAX BALL) Note: Formatting of this note is differe [...] on filedocumented in this encounter Care Teams Supersonic Engineer Relationship Specialty Start Date End Date Corrine Vazquez MD PCP - General Family Medicine 07/07/19 08/19/[address] [place] [address] documented as of this encounter
--- OUTSIDE RECORDS SUMMARY | 2021-12-10 15:16 | XMS_ITS | Encounter Summary ---
:1945 Author Organization [facility] Address [address] [place] [address] Care Team Providers Name Role Phone Corrine Vazquez MD Primary Care Provider Reason for Visit Reason Onset Date Comments med refill 01/14/2021 Encounter Details Date Type Department Care Team Description 01/14/2021 [facility] Corrine Vazquez MD med refill [address] [address] [place], [place] [phone] (Wo rk) Social History Tobacco Use Types [...] Left generic message that Rx was sent. MIXER Telephone Encounter - Corrine Vazquez MD - 01/16/2021 8:43 AM CST Rx sent to [facility] MIXER Telephone Encounter - Luciana Albarado - 01/15/2021 2:54 PM CST Pt called stating she is out of her fluconazole and is hoping to get [facility]. Please call Pt at [phone] to advise. MIXER Telephone Encounter - Maryse Coker - 01/14/2021 9:49 AM CST Pt is requesting a refill of fluconazole be sent to [facility] in [place]. She is out of this medication. Please advise. Thanks. MIXER documented in this encounter Plan of Treatment Not on filedocumented as of this encounter Goals Goal Patient Goal Associated Recent Patient-Stated? Author Type Problems Progress Routine Health General No change Peter Monzon (02/05/2021 Abbie Murray, 11:19 AM FRIT MIXER) RN Note: Formatting of this note is differe nt from the original. Routine Health Management Care Team Patient Care Team: Corrine Vazquez MD as PCP - General ([facility]) Yossi Potts, RN as Registered Nurse (Diabetes Education) Abbie Ramesh RN as Vehicle Dynamics Engineer Future Scheduled Appointments No future appointments. Health Maintenance Health Maintenance Topic Date Due Urine Protein Screening 05/31/2020 Lipid Panel 09/05/2020 Glaucoma Screening 67+ Yr 12/25/2020 Ophthalmology Exam 12/25/2020 [facility] Annual Wellness 01/12/2021 [...] (02/05/2021 11:17 AM No Abbie Ramesh RN FRIT MIXER) Note: Formatting of this note is differe [...] (02/05/2021 No Abbie Ramesh RN 11:14 AM FRIT MIXER) Note: Formatting of this note is differe [...] vaginitis documented in this encounter Care Teams Building Specialist Relationship Specialty Start Date End Date Corrine Vazquez MD PCP - General Family Medicine 07/07/19 08/19/[address] [place] [address] documented as of this encounter
--- OUTSIDE RECORDS SUMMARY | 2021-12-10 15:16 | XMS_ITS | Encounter Summary ---
:[address] [facility] Address [address] [place] [address] Care Team Providers Name Role Phone Corrine Vazquez MD Primary Care Provider Encounter Details Date Type Department Care Team Description 02/13/2021 [place] Type 2 diabetes mellitus wit h other specified complication, with long-term current use of insulin (HCC); [address] Type 2 diabetes mellitus wit hout complication, with long-term current use of insulin ([facility]) [place], [place] [address] Social History Tobacco Use [...] Domitila, Management (02/05/2021 Abbie Murray, 11:19 AM STUDENT SUCCESS COACH) RN Note: Formatting of this note is differe nt from the original. Routine Health Management Care Team Patient Care Team: Corrine Vazquez MD as PCP - General ([facility] Medicine) Yossi Potts, RN as Registered Nurse (Diabetes Education) Abbie Ramesh, RN as Home Advisor Future Scheduled Appointments No future appointments. Health Maintenance Health Maintenance Topic Date Due Urine Protein Screening 05/31/2020 Lipid Panel 09/05/2020 Glaucoma Screening 67+ Yr 12/25/2020 Ophthalmology Exam 12/25/2020 [facility] Annual Wellness 01/12/2021 Hemoglobin A1C 01/24/2021 Diabetic Foot Exam 03/16/2021 Colorectal Cancer Screening: Colonoscop y 05/21/2021 Fall Risk Performed 06/05/2021 Mammogram 12/03/2021 COVID-19 Vaccine Completed [facility] Pneumococcal Vaccine: <64 Completed [facility] Pneumococcal Vaccine: 65+ Years Com pleted HPV Vaccines Aged Out Notes: Due: Urine Protein screening Eye exam AWV A1C Lipid panel Diabetes Management General No change (02/05/2021 11:17 AM No Abbie Ramesh, RN STUDENT SUCCESS COACH) Note: Formatting of this note is differe [...] track (02/05/2021 Abbie Monzon RN 11:14 AM STUDENT SUCCESS COACH) Note: Formatting of this note is differe [...] (HCC) documented in this encounter Care Teams Veterans' Coordinator Relationship Specialty Start Date End Date Corrine Vazquez MD PCP - General Family Medicine 07/07/19 08/19/[address] [place] [address] documented as of this encounter
--- OUTSIDE RECORDS SUMMARY | 2021-12-10 15:16 | XMS_ITS | Encounter Summary ---
:[address] [facility] Address [address] [place] [address] Care Team Providers Name Role Phone Corrine Vazquez MD Primary Care Provider Encounter Details Date Type Department Care Team Description 08/30/2020 Refill [place] Corrine Vazquez, Type 2 diabetes mellitus [address] MD with other specified [place], [place] [address] [address] [facility], without [phone] [place] [id number] insulin ([facility]) Social History Tobacco Use Types Packs/Day [...] Domitila, Management (02/05/2021 Abbie Murray, 11:19 AM CAR SANDER) RN Note: Formatting of this note is differe nt from the original. Routine Health Management Care Team Patient Care Team: Corrine Vazquez MD as PCP - General ([facility] Medicine) Yossi Potts, RN as Registered Nurse (Diabetes Education) Abbie Ramesh RN as Line Staker Future Scheduled Appointments No future appointments. Health [...] (02/05/2021 11:17 AM No Abbie Ramesh, RN CAR SANDER) Note: Formatting of this note is [...] No Abbie Ramesh RN 11:14 AM CAR SANDER) Note: Formatting of this note is differe nt from the original. Cardiovascular Management Essential hypertension Chronic coronary artery disease Managed by (PCP; Cardiology; [facility]) Dr. Ronak lozoya MD (PCP)/Dr. [...] (HCC) documented in this encounter Care Teams Gas Meter Reader Relationship Specialty Start Date End Date Corrine Vazquez MD PCP - General Family Medicine 07/07/19 08/19/[address] [place] [address] documented as of this encounter
--- OUTSIDE RECORDS SUMMARY | 2021-12-10 15:16 | XMS_ITS | Encounter Summary ---
:1945 Author Organization [facility] Address [address] [place] [address] Care Team Providers Name Role Phone Corrine Vazquez MD Primary Care Provider Reason for Referral Consultation (Routine) - Closed Specialty Diagnoses / Procedures Referred By Contact Refer red To Contact Diagnoses Early satiety Antonio Shipman MD [facility] [address] [place], [place] [address] [facility] [address] [place] [address] Fax: Referral ID Status Reason Start Date Expiration Date Visits Requ ested Visits Authorized [id number] Closed 12/06/2020 2021 1 1 Reason for Visit Reason Onset Date Comments endo 11/21/2020 Encounter Details Date Type Department Care Team Description 11/21/2020 Telephone [place] Corrine Vazquez MD [facility] [address] [facility] [address] [place], [place] [address] [place], [place] [phone] (Wo rk) Social History Tobacco Use Types [...] 12/23/2018 organizations such as yazdanism groups, unions, [employer] or athletic groups, or school groups? How [...] has not heard anything from [facility] in [place] [facility] yet. CC called and spoke [facility] and was told there was no paperwork that was received recently for Marcial. Please re-fax the referral to [phone]. Thank you Telephone Encounter - Phoebe Donohue - 12/06/2020 3:24 PM CDT Referral faxed. Telephone Encounter - Margareth Sanchez RN - 12/06/2020 2:04 PM CDT Please fax orders to [facility]umber[facility] [place]. Addendum Note - Antonio Shipman MD - [...] Peter Ramesh (02/05/2021 Abbie Murray, 11:19 AM PURCHASING ASSOCIATE) RN Note: Formatting of this note is differe nt from the original. Routine Health Management Care Team Patient Care Team: Corrine Vazquez MD as PCP - General ([facility] Medicine) Yossi Potts, RN as Registered Nurse (Diabetes Education) Abbie Ramesh RN as Engraver Flatware Future Scheduled Appointments No future appointments. Health Maintenance Health Maintenance Topic Date Due Urine Protein Screening 05/31/2020 Lipid Panel 09/05/2020 Glaucoma Screening 67+ Yr 12/25/2020 Ophthalmology Exam 12/25/2020 [facility] [place] Wellness 01/12/2021 Hemoglobin A1C 01/24/2021 Diabetic [...] (02/05/2021 11:17 AM No Abbie Ramesh RN PURCHASING ASSOCIATE) Note: Formatting of this note is differe [...] (02/05/2021 No Abbie Ramesh RN 11:14 AM PURCHASING ASSOCIATE) Note: Formatting of this note is differe [...] Primary documented in this encounter Care Teams Corporate Compliance Officer Relationship Specialty Start Date End Date Corrine Vazquez MD PCP - General Family Medicine 07/07/19 08/19/[address] [place] [address] documented as of this encounter
--- OUTSIDE RECORDS SUMMARY | 2021-12-10 15:16 | XMS_ITS | Encounter Summary ---
:1945 Author Organization [facility] Address [address] [place] [address] Care Team Providers Name Role Phone Corrine Vazquez MD Primary Care Provider Reason for Visit Reason Onset Date Comments rx 11/09/2020 Encounter Details Date Type Department Care Team Description 11/09/2020 Telephone [place] Corrine Vazquez MD rx [address] [place], [place] [address] [place], [place] [phone] (Wo rk) Social History Tobacco Use Types [...] questions about RX. Please call Kamille at [phone]. documented in this encounter Plan of Treatment Not on filedocumented as of this encounter Goals Goal Patient Goal Associated Recent Patient-Stated? Author Type Problems Progress Routine Health General No change No Domitila, Peter (02/05/2021 Abbie Murray, 11:19 AM LACQUER SIZER) RN Note: Formatting of this note is differe nt from the original. Routine Health Management Care Team Patient Care Team: Corrine Vazquez MD as PCP - General ([facility] Medicine) Yossi Potts RN as Registered Nurse (Diabetes Education) Abbie Ramesh, RN as Property Claim Rep Future Scheduled Appointments No future appointments. Health [...] (02/05/2021 11:17 AM No Abbie Ramesh, RN LACQUER SIZER) Note: Formatting of this note is differe [...] (02/05/2021 No Abbie Ramesh RN 11:14 AM LACQUER SIZER) Note: Formatting of this note is differe [...] on filedocumented in this encounter Care Teams Electrical Hardware Engineer Relationship Specialty Start Date End Date Corrine Vazquez MD PCP - General Family Medicine 07/07/19 08/19/21 [address] [place] [address] documented as of this encounter
--- OUTSIDE RECORDS SUMMARY | 2021-12-10 15:16 | XMS_ITS | Encounter Summary ---
:1945 Author Organization [facility] Address [address] [place] [address] Care Team Providers Name Role Phone Corrine Vazquez MD Primary Care Provider Encounter Details Date Type Department Care Team Description 11/09/2020 [facility] [address] [place], [place] [address] Social History Tobacco Use [...] Ramesh (02/05/2021 Abbie Murray, 11:19 AM MANAGER MANUFACTURING) RN Note: Formatting of this note is differe nt from the original. Routine Health Management Care Team Patient Care Team: Corrine Vazquez MD as PCP - General ([facility] Medicine) Yossi Potts, RN as Registered Nurse (Diabetes Education) Abbie Ramesh RN as Full Stack Java Developer Future Scheduled Appointments No future appointments. [...] 11:17 AM No Abbie Ramesh, RN MANAGER MANUFACTURING) Note: Formatting of this note is differe nt from the original. Diabetes Management Type 2 diabetes mellitus with other spec ified complication (HCC) Managed by (PCP or Endocrinology) Dr. Vazquez (PCP ) Home Glucose tracking 1-3 times per day Diabetic medications insulin glargine (B OSIRISGLMRAIANELA KWIKPEN) 100 UNIT/ML injection 22 units in [...] No Abbie Ramesh RN 11:14 AM MANAGER MANUFACTURING) Note: Formatting of this note is differe [...] on filedocumented in this encounter Care Teams Insulator Helper Relationship Specialty Start Date End Date Corrine Vazquez MD PCP - General Family Medicine 07/07/19 08/19/[address] [place] [address] documented as of this encounter
--- OUTSIDE RECORDS SUMMARY | 2021-12-10 15:16 | XMS_ITS | Encounter Summary ---
:1945 Author Organization [facility] Address [address] [place] [address] Care Team Providers Name Role Phone Corrine Vazquez MD Primary Care Provider Reason for Visit Reason Onset Date Comments fasting labs 02/13/2021 Encounter Details Date Type Department Care Team Description 02/13/2021 Telephone [place] Corrine Vazquez MD fasting labs [address] [place], [place] [address] [place], [place] [phone] (Wo rk) Social History Tobacco Use Types [...] - 02/13/2021 12:31 PM CST Orders placed ONATION EQUIPMENT OPERATOR Telephone Encounter - Hali Cormier MA - 02/13/2021 11:16 AM CST Patient came in for labs but was not fasting. Patient will be coming in tomorrow morning to have this drawn. Please replace orders for LIPID and Ha1C. ONATION EQUIPMENT OPERATOR documented in this encounter Plan of Treatment Not on filedocumented as of this encounter Goals Goal Patient Goal Associated Recent Patient-Stated? Author Type Problems Progress Routine Health General No change No Domitila, Peter (02/05/2021 Abbie Murray, 11:19 AM CARBONATION EQUIPMENT OPERATOR) RN Note: Formatting of this note is differe nt from the original. Routine Health Management Care Team Patient Care Team: Corrine Vazquez MD as PCP - General ([facility] Medicine) Yossi Potts, RN as Registered Nurse (Diabetes Education) Abbie Ramesh, ERA as Barrel Bridge Assembler Future Scheduled Appointments No future appointments. Health Maintenance Health Maintenance Topic Date Due Urine Protein Screening 05/31/2020 Lipid Panel 09/05/2020 Glaucoma Screening 67+ Yr 12/25/2020 Ophthalmology Exam 12/25/2020 [facility] [place] Wellness 01/12/2021 Hemoglobin A1C 01/24/2021 Diabetic Foot Exam 03/16/2021 Colorectal Cancer Screening: Colonoscop y 05/21/2021 Fall Risk Performed 06/05/2021 Mammogram 12/03/2021 COVID-19 Vaccine Completed [facility] Pneumococcal Vaccine: <64 Completed [facility] Pneumococcal Vaccine: 65+ Years Com pleted HPV Vaccines Aged Out Notes: Due: Urine Protein screening Eye exam AWV A1C Lipid panel Diabetes Management General No change (02/05/2021 11:17 AM No Abbie Ramesh, RN CARBONATION EQUIPMENT OPERATOR) Note: Formatting of this note is [...] (02/05/2021 No Abbie Ramesh RN 11:14 AM CARBONATION EQUIPMENT OPERATOR) Note: Formatting of this note is [...] Results (ABNORMAL) Lipid panel (02/14/2021 9:30 AM CARBONATION EQUIPMENT OPERATOR) P athologist Signature Cholesterol 237 (H) 0 - 199 02/14/2021 [facility] mg/dL 1:26 PM [facility] Comment: Recommended by National Cholesterol Education Program (ATP III) -------- Cholesterol Ranges -------- <200 ?Desirable 200-239 ? Borderline high >=240 ? High Triglycerides 285 (H) 0 - 149 mg/dL 02/14/2021 1:26 PM [facility] Comment: -------- TRIG Ranges -------- <150 ?Normal 150-199 ? Borderline high 200-499 ? High >=500 ? Very high HDL 44 40 - 250 mg/dL 02/14/2021 1:26 PM [facility] Comment: -------- HDL Ranges -------- <40 ?Low 40-59 ?Normal >=60 ? Optimal LDL Calculated 136 (H) 0 - 99 mg/dL 02/14/2021 1:26 PM [facility] Comment: -------- LDL Ranges -------- <100 ? Optimal 100-129 ?Near optimal/above op timal 130-159 ?Borderline high 160-189 ?High >=190 ?Very high Fasting? Yes 02/14/2021 9:35 AM [facility] Specimen Anatomical Collection Method Collection Time Receive d Time (Source) Location / / Volume Laterality Blood 02/14/2021 9:30 AM CARBONATION EQUIPMENT OPERATOR 12:48 PM CARBONATION EQUIPMENT OPERATOR D. [place] Vazquez MD LAB BLOOD ORDERABLES Performing Organization Address City/State/ZIP Code Phon e Number [facility] [address] [place] [address] (ABNORMAL) Hemoglobin A1c (02/14/2021 9:30 AM CARBONATION EQUIPMENT OPERATOR) Analysis Performed At [facility] Signature Hemoglobin A1C 8.6 (H) 4.0 - 5.6 02/14/2021 [facility] % A1C 6:49 PM [facility] Comment: Reference Range 4.0-5.6% is for [...] 02/14/2021 9:30 AM 02/15/20 21 6:20 Venous) CARBONATION EQUIPMENT OPERATOR PM CARBONATION EQUIPMENT OPERATOR D. [place] Vazquez MD LAB BLOOD ORDERABLES Performing Organization Address City/State/ZIP Code Phon e Number [facility] [address] [place] [address] (ABNORMAL) Basic metabolic panel (02/14/2021 9:30 AM [facility]) Analysis Performed At [facility] Signature Sodium 137 135 - 145 02/14/2021 [facility] mEq/L 1:26 PM [facility] Potassium 3.8 3.5 - 5.1 02/14/2021 [facility] mEq/L 1:26 PM [facility] Chloride 103 98 - 107 02/14/2021 [facility] mEq/L 1:26 PM [facility] CO2 25 22 - 29 02/14/2021 [facility] mmol/L 1:26 PM [facility] Creatinine 1.5 (H) 0.4 - 1.2 02/14/2021 [facility] mg/dL 1:26 PM [facility] BUN 28 (H) 5 - 25 02/14/2021 [facility] mg/dL 1:26 PM [facility] Glucose 169 (H) 70 - 100 02/14/2021 [facility] mg/dL 1:26 PM [facility] Calcium, 9.3 8.4 - 10.2 02/14/2021 [facility] Total,S mg/dL 1:26 PM CARBONATION EQUIPMENT OPERATOR [facility] Specimen Anatomical Collection Method Collection Time Receive d Time (Source) Location / / Volume Laterality Blood 02/14/2021 9:30 AM CARBONATION EQUIPMENT OPERATOR 12:48 PM CARBONATION EQUIPMENT OPERATOR Corrine Vazquez MD LAB BLOOD ORDERABLES Performing Organization Address City/State/ZIP Code Phon e Number [facility] [address] [place] [address] documented in this encounter Visit Diagnoses Diagnosis Screening for deficiency anemia - Primar y Screening for other and unspecified defi ciency anemia Type 2 diabetes mellitus without complic ation, with long-term current use of insulin (HCC) Mixed hyperlipidemia documented in this encounter Care Teams Chief Writer Relationship Specialty Start Date End Date Corrine Vazquez MD PCP - General Family Medicine 07/07/19 08/19/[address] [place] [address] documented as of this encounter
--- OUTSIDE RECORDS SUMMARY | 2021-12-10 15:16 | XMS_ITS | Encounter Summary ---
:1945 Author Organization [facility] Address [address] [place] [address] Care Team Providers Name Role Phone Corrine [...] MD Care Coordination [facility] [address] [place], [place] [phone] Referral ID Status Reason Start Date Expiration Date Visits V isits Requested Authorized [id number] Closed Specialty 02/21/2020 03/18/2021 99 99 Services Required Encounter Details Date Type Department Care Team Description 12/11/2020 Patient Outreach SE Care Coordination Abbie Ramesh Counseling and coordination of care (Primary Dx); [address] [place] [address] Terri RN Type 2 diabetes mellitus with other spec ified complication, with long-term current use of insulin (HCC); [place] [address] 16[address] [facility] Essential hypertension [phone] [place] [address] Social History Tobacco Use Types [...] 12/23/2018 organizations such as buddhism groups, unions, [employer] or athletic groups, or school groups? How [...] forward with EGD. Checked with [facility] in [place] and was told they have not received the paperwork yet. Will have CF reception clerk re-send. Follow-up plan: ?? Monthly or sooner [...] Nurse (Diabetes Education) Abbie Ramesh RN as Method Consultant Future Scheduled Appointments No future appointments. [...] Domitila, Management (02/05/2021 Abbie Murray 11:19 AM BUDGET MANAGER) RN Note: Formatting of this note is differe nt from the original. Routine Health Management Care Team Patient Care Team: Corrine Vazquez MD as PCP - General ([facility] Medicine) Yossi Potts, RN as Registered Nurse (Diabetes Education) Abbie Ramesh RN as Method Consultant Future Scheduled Appointments No future appointments. [...] change (02/05/2021 11:17 AM Abbie Monzon, RN BUDGET MANAGER) Note: Formatting of this note is [...] (02/05/2021 No Abbie Ramesh RN 11:14 AM BUDGET MANAGER) Note: Formatting of this note is [...] hypertension documented in this encounter Care Teams Director For [employer] Relationship Specialty Start Date End Date Corrine Vazquez MD PCP - General Family Medicine 07/07/19 08/19/[address] [place] [address] documented as of this encounter
--- OUTSIDE RECORDS SUMMARY | 2021-12-10 15:16 | XMS_ITS | Encounter Summary ---
:[address] [facility] Address [address] [place] [address] Care Team Providers Name Role Phone Corrine [...] Vazquez MD Care Coordination 1705 [facility] [address], [place] [phone] Referral ID Status Reason Start Date Expiration Date Visits V isits Requested Authorized [id number] Closed Specialty 02/21/2020 03/18/2021 99 99 Services Required Encounter Details Date Type Department Care Team Description 01/08/2021 Patient Outreach Care Coordination Abbie Ramesh [facility] and [address] [place] [address] Terri RN coordination of care [place], [place] [phone] [facility] (Primary Dx) [phone] [place] [address] Social History Tobacco Use Types [...] 12/23/2018 organizations such as taoism groups, unions, [employer] or athletic groups, or school groups? How [...] is first attempt to call this month. CARBONIZER documented in this encounter Plan of Treatment Not on filedocumented as of this encounter Goals Goal Patient Goal Associated Recent Patient-Stated? Author Type Problems Progress Routine Health General No change No Peter Ramesh (02/05/2021 Abbie Murray, 11:19 AM FELT CARBONIZER) RN Note: Formatting of this note is differe nt from the original. Routine Health Management Care Team Patient Care Team: Corrine Vazquez MD as PCP - [facility]) Yossi Potts, RN as Registered Nurse (Diabetes Education) Abbie Ramesh RN as Transplant Rn Future Scheduled Appointments No future appointments. Health Maintenance Health Maintenance Topic Date Due Urine Protein Screening 05/31/2020 Lipid Panel 09/05/2020 Glaucoma Screening 67+ Yr 12/25/2020 Ophthalmology Exam 12/25/2020 [facility]ness 01/12/2021 Hemoglobin A1C 01/24/2021 Diabetic Foot Exam 03/16/2021 Colorectal Cancer Screening: Colonoscop y 05/21/2021 Fall Risk Performed 06/05/2021 Mammogram 12/03/2021 COVID-19 Vaccine Completed [facility] Pneumococcal Vaccine: <64 Completed [facility] Pneumococcal Vaccine: 65+ Years Com pleted HPV Vaccines Aged Out Notes: Due: Urine Protein screening Eye exam AWV A1C Lipid panel Diabetes Management General No change (02/05/2021 11:17 AM No Abbie Ramesh, RN FELT CARBONIZER) Note: Formatting of this note is differe [...] (02/05/2021 No Abbie Ramesh, RN 11:14 AM FELT CARBONIZER) Note: Formatting of this note is differe nt from the original. Cardiovascular Management Essential hypertension Chronic coronary artery disease Managed by (PCP; Cardiology; [facility]) Dr. Ronak lozoya MD [...] imary documented in this encounter Care Teams Quiller Tender Relationship Specialty Start Date End Date Corrine Vazquez MD PCP - General Family Medicine 07/07/19 08/19/[address] [place] [address] documented as of this encounter
--- OUTSIDE RECORDS SUMMARY | 2021-12-10 15:16 | XMS_ITS | Encounter Summary ---
:1945 Author Organization [facility] Address [address] [place] [address] Care Team Providers Name Role Phone Corrine Vazquez MD Primary Care Provider Reason for Visit Reason Onset Date Comments Med Refill 10/17/2020 Encounter Details Date Type Department Care Team Description 10/17/2020 Refill [place] Corrine Vazquez, Type 2 diabetes mellitus [address] without complication, [place], [place] [address] with long-term current [phone] [place], [place] use of insu [place] ([facility]) [phone] (Primary Dx) Social History Tobacco Use Types [...] day Labs:Contains abnormal data Hemoglobin A1c Order: [id number] (suggestion) Information displayed in this report will [...] 14:13 Last Resulted: 07/25/20 14:31 Received From: [facility] Result Received: 09/07/20 12:06 Vitals: BP Readings from Last 2 Encounters: 10/08/20 120/80 06/19/20 120/60 documented in this encounter Plan of Treatment Not on filedocumented as of this encounter Goals Goal Patient Goal Associated Recent Patient-Stated? Author Type Problems Progress Routine Health General No change No Peter Ramesh (02/05/2021 Abbie Murray, 11:19 AM TABLET MAKING MACHINE OPERATOR HELPER) RN Note: Formatting of this note is differe nt from the original. Routine Health Management Care Team Patient Care Team: Corrine Vazquez MD as PCP - General ([facility]) Yossi Potts, RN as Registered Nurse (Diabetes Education) Abbie Ramesh RN as Portfolio Accountant Future Scheduled Appointments No future appointments. Health [...] (02/05/2021 11:17 AM No Abbie Ramesh RN TABLET MAKING MACHINE OPERATOR HELPER) Note: Formatting of this note [...] track (02/05/2021 Abbie Monzon RN 11:14 AM TABLET MAKING MACHINE OPERATOR HELPER) Note: Formatting of this note is differe nt from the original. Cardiovascular Management Essential hypertension Chronic coronary artery disease Managed by (PCP; Cardiology; [facility]) Dr. Ronak lozoya MD [...] Primary documented in this encounter Care Teams Lab Animal Technologist Relationship Specialty Start Date End Date Corrine Vazquez MD PCP - General Family Medicine 07/07/19 08/19/[address] [place] [address] documented as of this encounter
--- OUTSIDE RECORDS SUMMARY | 2021-12-10 15:16 | XMS_ITS | Encounter Summary ---
:1945 Author Organization [facility] Address [address] [place] [address] Care Team Providers Name Role Phone Corrine Vazquez MD Primary Care Provider Encounter Details Date Type Department Care Team Description 02/14/2021 Lab [place] Type 2 diabetes mellitus wit hout complication, with long-term current use of insulin (HCC); [address] Mixed hyperlipidemia; [place], [place] [address] Screening for deficiency ane luis; [phone] Type 2 diabetes mellitus with other specified [...] Domitila, Management (02/05/2021 Abbie Murray, 11:19 AM PRODUCT SAFETY CONSULTANT) RN Note: Formatting of this note is differe nt from the original. Routine Health Management Care Team Patient Care Team: Corrine Vazquez MD as PCP - General ([facility] Medicine) Yossi Potts, RN as Registered Nurse (Diabetes Education) Abbie Ramesh, RN as Finished Hardware Erector Future Scheduled Appointments No future appointments. [...] (02/05/2021 11:17 AM No Abbie Ramesh, RN PRODUCT SAFETY CONSULTANT) Note: Formatting of this note is [...] track (02/05/2021 Abbie Monzon RN 11:14 AM PRODUCT SAFETY CONSULTANT) Note: Formatting of this note is [...] diabetes Result s for this FILTRATION RATE PRODUCT SAFETY CONSULTANT mellitus without procedur e are in complication, with the resul ts long-term current use sectio n. of insulin ([facility]) CBC BRANCH OFFICE Routine 02/14/2021 9:30 AM Resu lts for this W/DIFF PRODUCT SAFETY CONSULTANT procedure are i n the results section. HEMOGLOBIN A1C Routine 02/14/2021 9:30 AM Type 2 diabetes Resu lts for this PRODUCT SAFETY CONSULTANT mellitus without procedure a re in complication, with the resul ts long-term current use sectio n. of insulin ([facility]) LIPID PANEL Routine 02/14/2021 9:30 AM Type 2 diabetes Result s for this PRODUCT SAFETY CONSULTANT mellitus without procedure a re in complication, with the resul ts long-term current use sectio n. of insulin ([facility]) Mixed hyperlipidemia BASIC METABOLIC Routine 02/14/2021 9:30 AM Type 2 diabetes Res ults for this PANEL PRODUCT SAFETY CONSULTANT mellitus without procedure a re in complication, with the resul ts long-term current use sectio n. of insulin (HCC) MICROALBUMIN/CREATI Routine 02/14/2021 9:10 AM Type 2 diabetes Results for this NINE RATIO PRODUCT SAFETY CONSULTANT mellitus with other procedur e are in specified the results complication, with section. long-term current use of insulin (HCC) documented in this encounter Results (ABNORMAL) Glomerular filtration rate (GFR) (02/14/2021 9:30 AM PRODUCT SAFETY CONSULTANT) P athologist Signature GFR 34 (A) 02/14/2021 [facility] 1:26 PM PRODUCT SAFETY CONSULTANT [facility] 41 (A) 02/14/2021 [facility] [place] GFR 1:26 PM PRODUCT SAFETY CONSULTANT [facility] Comment: GFR calculated from serum creatinine v alue Chronic Kidney Disease less than 60 mL/m in/1.73 m2 Kidney Failure less than 15 mL/min/1.73 m2 Note: effective 07/01/06 IDMS-Traceable MDRD Study Equation used. Specimen Anatomical Collection Method Collection Time Receive d Time (Source) Location / / Volume Laterality 02/14/2021 9:30 AM 9:30 PRODUCT SAFETY CONSULTANT AM PRODUCT SAFETY CONSULTANT D. Lincoln Vazquez MD LAB BLOOD ORDERABLES Performing Organization Address City/State/ZIP Code Phon e Number [facility] [address] [place] [address] (ABNORMAL) CBC Branch Off w/Diff (02/14/2021 9:30 AM PRODUCT SAFETY CONSULTANT) Patholo gist Method Time Signature WBC 7.7 3.5 - 10.5 02/14/2021 [facility] K/uL 11:26 AM PRODUCT SAFETY CONSULTANT [place] RBC 3.71 (L) 3.90 - 02/14/2021 [facility] 5.00 M/uL 11:26 AM PRODUCT SAFETY CONSULTANT [place] Hemoglobin 10.9 (L) 12.0 - 02/14/2021 [facility] 15.5 g/dL 11:26 AM PRODUCT SAFETY CONSULTANT [place] Hematocrit 33.2 (L) 35.0 - 02/14/2021 [facility] 44.0 % 11:26 AM PRODUCT SAFETY CONSULTANT [place] Platelets 205 150 - 450 02/14/2021 [facility] K/uL 11:26 AM PRODUCT SAFETY CONSULTANT [place] MCV 89.5 81.6 - 02/14/2021 [facility] 98.3 fL 11:26 AM PRODUCT SAFETY CONSULTANT [place] MCH 29.4 26.0 - 02/14/2021 [facility] 32.0 pg 11:26 AM PRODUCT SAFETY CONSULTANT [place] MCHC 32.8 32.0 - 02/14/2021 [facility] 36.0 g/dL 11:26 AM PRODUCT SAFETY CONSULTANT [place] RDW 13.3 11.9 - 02/14/2021 [facility] 15.5 % 11:26 AM PRODUCT SAFETY CONSULTANT [place] Lymphocytes % 14.9 % 02/14/2021 [facility] 11:26 AM PRODUCT SAFETY CONSULTANT [place] Mid-size Cells 10.5 % 02/14/2021 [facility] 11:26 AM PRODUCT SAFETY CONSULTANT [place] Granulocytes/Jean Claude 74.6 % 02/14/2021 [facility] trophils 11:26 AM PRODUCT SAFETY CONSULTANT [place] Lymphocytes 1.1 0.9 - 2.9 02/14/2021 [facility] Absolute K/uL 11:26 AM PRODUCT SAFETY CONSULTANT [place] MIDS Absolute 0.8 0.4 - 1.5 02/14/2021 [facility] K/uL 11:26 AM PRODUCT SAFETY CONSULTANT [place] Granulocytes/Jean Claude 5.8 1.7 - 7.0 02/14/2021 [facility] trophils K/uL 11:26 AM PRODUCT SAFETY CONSULTANT [place] Absolute Specimen Anatomical Collection Method Collection Time Receive d Time (Source) Location / / Volume Laterality 02/14/2021 9:30 AM 9:35 PRODUCT SAFETY CONSULTANT AM PRODUCT SAFETY CONSULTANT D. Lincoln Vazquez MD LAB BLOOD ORDERABLES Performing Organization Address City/State/ZIP Code Phon e Number [facility] [place] [address] [place] [address] (ABNORMAL) Basic metabolic panel (02/14/2021 9:30 AM PRODUCT SAFETY CONSULTANT) Analysis Performed At Patho logist Time Signature Sodium 137 135 - 145 02/14/2021 [facility] mEq/L 1:26 PM [facility] Potassium 3.8 3.5 - 5.1 02/14/2021 [facility] mEq/L 1:26 PM [facility] Chloride 103 98 - 107 02/14/2021 [facility] mEq/L 1:26 PM [facility] CO2 25 22 - 29 02/14/2021 [facility] mmol/L 1:26 PM [facility] Creatinine 1.5 (H) 0.4 - 1.2 02/14/2021 [facility] mg/dL 1:26 PM [facility] BUN 28 (H) 5 - 25 02/14/2021 [facility] mg/dL 1:26 PM [facility] Glucose 169 (H) 70 - 100 02/14/2021 [facility] mg/dL 1:26 PM [facility] Calcium, 9.3 8.4 - 10.2 02/14/2021 [facility] Total,S mg/dL 1:26 PM [facility] Specimen Anatomical Collection Method Collection Time Receive d Time (Source) Location / / Volume Laterality Blood 02/14/2021 9:30 AM PRODUCT SAFETY CONSULTANT 12:48 PM PRODUCT SAFETY CONSULTANT Corrine Vazquez MD LAB BLOOD ORDERABLES Performing Organization Address City/[facility] e Number [facility] [address] [place] [phone] (ABNORMAL) Hemoglobin A1c (02/14/2021 9:30 AM PRODUCT SAFETY CONSULTANT) Analysis Performed At Patho logist Time Signature Hemoglobin A1C 8.6 (H) 4.0 - 5.6 02/14/2021 [facility] % A1C 6:49 PM [facility] Comment: Reference Range 4.0-5.6% is [...] 02/14/2021 9:30 AM 02/15/20 21 6:20 Venous) PRODUCT SAFETY CONSULTANT PM PRODUCT SAFETY CONSULTANT Corrine Vazquez MD LAB BLOOD ORDERABLES Performing Organization Address [facility] e Number [facility] [address] [place] [address] (ABNORMAL) Lipid panel (02/14/2021 9:30 AM PRODUCT SAFETY CONSULTANT) P athologist Signature Cholesterol 237 (H) 0 - 199 02/14/2021 [facility] mg/dL 1:26 PM [facility] Comment: Recommended by National Cholesterol Education Program (ATP III) -------- Cholesterol Ranges -------- <200 ?Desirable 200-239 ? Borderline high >=240 ? High Triglycerides 285 (H) 0 - 149 mg/dL 02/14/2021 1:26 PM [facility] Comment: -------- TRIG Ranges -------- <150 ?Normal 150-199 ? Borderline high 200-499 ? High >=500 ? Very high HDL 44 40 - 250 mg/dL 02/14/2021 1:26 PM [facility] Comment: -------- HDL Ranges -------- <40 ?Low 40-59 ?Normal >=60 ? Optimal LDL Calculated 136 (H) 0 - 99 mg/dL 02/14/2021 1:26 PM [facility] Comment: -------- LDL Ranges -------- <100 ? Optimal 100-129 ?Near optimal/above op timal 130-159 ?Borderline high 160-189 ?High >=190 ?Very high Fasting? Yes 02/14/2021 9:35 AM [facility] Specimen Anatomical Collection Method Collection Time Receive d Time (Source) Location / / Volume Laterality Blood 02/14/2021 9:30 AM PRODUCT SAFETY CONSULTANT 12:48 PM PRODUCT SAFETY CONSULTANT D. Lincoln Vazquez MD LAB BLOOD ORDERABLES Performing Organization Address City/State/ZIP Code Phon e Number [facility] [address] [place] [address] (ABNORMAL) Microalbumin/Creatinine Ratio (02/14/2021 9:10 AM PRODUCT SAFETY CONSULTANT) [facility] Method Time Signature Microalbumin,m 104.3 (H) 0.0 - 16.6 02/14/2021 [place] [place] g/day mg/L 1:37 PM [facility] Comment: . Creatinine, Urine 257 mg/dL 02/14/2021 1:37 PM PRODUCT SAFETY CONSULTANT [facility] Comment: No established reference range. Microalb/Creat Ratio 41 (H) 0 - 24 mg/g 02/14/2021 1:37 P [facility] Specimen Anatomical Collection Method Collection Time Receive d Time (Source) Location / / Volume Laterality Urine (Urine, 02/14/2021 9:10 AM 02/15/20 21 [place]) PRODUCT SAFETY CONSULTANT 12:48 PM PRODUCT SAFETY CONSULTANT D. Lincoln Vazquez MD LAB URINE ORDERABLES Performing Organization Address City/State/ZIP Code Phon e Number [facility] [address] [place] [phone] documented in this encounter Visit Diagnoses Diagnosis Type 2 diabetes mellitus without complic ation, with long-term current use of insulin (HCC) Mixed hyperlipidemia Screening for deficiency anemia Screening for other and unspecified defi ciency anemia Type 2 diabetes mellitus with other spec ified complication, with long-term current use of insulin (HCC) documented in this encounter Care Teams Right Of Way Manager Relationship Specialty Start Date End Date Corrine Vazquez MD PCP - General Family Medicine 07/07/19 08/19/[address] [place] [address] documented as of this encounter
--- OUTSIDE RECORDS SUMMARY | 2021-12-10 15:17 | XMS_ITS | Encounter Summary ---
:1945 Author Organization [facility] Address [address] [place] [address] Care Team Providers Name Role Phone Corrine Vazquez MD Primary Care Provider Reason for Visit Reason Comments Dizziness Headache Fatigue Encounter Details Date Type Department Care Team Description 06/05/2020 Office Visit [place] Antonio Madsen, Dizziness (Primary Dx); [address] Decreased vibratory sense; [place], [place] [address] Orthostatic hypotension; [address] [place], [place] Essential hypertension; [phone] [address] Type 2 diabetes mellitus with other spec ified complication, with long-term current use of insulin (HCC); [phone] Chronic diarrhe a; (Work) Venous insufficiency; Early [...] 06/05/2020 10:40 AM CDT Subjective Patient ID: Marcila Adams is a 75 y.o. female. Chief [...] insulin(HCC) 6. Chronic diarrhea Celiac Disease Serology Rich 7. Venous insufficiency 8. Early satiety Her [...] EGD and have her seen by her Mold Operator. Her glucose levels at least from review [...] Peter Ramesh (02/05/2021 Abbie Murray, 11:19 AM BEHAVIORAL HEALTH COUNSELOR) RN Note: Formatting of this note is differe nt from the original. Routine Health Management Care Team Patient Care Team: Corrine Vazquez MD as PCP - General ([facility] Medicine) Yossi Potts RN as Registered Nurse (Diabetes Education) Abbie Ramesh RN as Application Technician Future Scheduled Appointments No future appointments. [...] (02/05/2021 11:17 AM No Abbie Ramesh RN BEHAVIORAL HEALTH COUNSELOR) Note: Formatting of this note is differe [...] No Roschen, Abbie J, RN 11:14 AM BEHAVIORAL HEALTH COUNSELOR) Note: Formatting of this note is differe [...] athologist Signature Vitamin B-12 737 239 - 321 06/15/2020 [facility] pg/mL 2:45 PM CDT CENTER LABORATORY [...] Code Phon e Number [facility] [address] [place] [address] Celiac Disease Serology Rich (06/15/2020 9:16 AM CDT) Patholo gist Method Time Signature Immunoglobulin A 313 61 - 356 06/18/2020 [facility] (IgA) mg/dL 10:15 PM CDT LABORATORIES Interpretation - 06/18/2020 [facility] 10:15 PM CDT LABORATORIES Comment: Negative serology. Celiac disease unlike ly. However, approximately 10% of patients with casimiro c disease are seronegative. Also, patients who are alr claude adhering to a gluten-free diet may be seronegative. If celiac disease is highly clinically suspected, consider HL A-DQ typing. Test Performed by: [facility] [address] [place], [place] [address] [address] Supervisor: Pradeep Parikh M.D. Ph. D.; CLIA# [id number] Specimen Anatomical Collection Method Collection Time Receive d Time (Source) Location / / Volume Laterality Blood 06/15/2020 9:16 AM 2:34 CDT PM CDT Antonio Madsen MD LAB BLOOD ORDERABLES Performing Organization Address City/State/ZIP Code Phon e Number [facility] see result attachment for specific address documented [...] satiety documented in this encounter Care Teams Baton Twirler Relationship Specialty Start Date End Date Corrine Vazquez MD PCP - General Family Medicine 07/07/19 08/19/[address] [place] [address] documented as of this encounter
--- OUTSIDE RECORDS SUMMARY | 2021-12-10 15:17 | XMS_ITS | Encounter Summary ---
:1945 Author Organization [facility] Address [address] [place] [address] Care Team Providers Name Role Phone Corrine Vazquez MD Primary Care Provider Reason for Visit Consultation (Routine) - Closed Specialty Diagnoses / Procedures Referred By Contact Refer red To Contact Family Medicine Diagnoses Enrolled in chronic care management Essential hypertension Type 2 diabetes mellitus with other specified complication, with long-term current use of insulin (HCC) Mixed hyperlipidemia Corrine Vazquez MD Care Coordination [address] [place] [address] [address] [place], [place] [phone] Referral ID Status Reason Start Date Expiration Date Visits V isits Requested Authorized [id number] Closed Specialty 02/21/2020 03/18/2021 99 99 Services Required Encounter Details Date Type Department Care Team Description 03/23/2020 Patient Outreach SE Care Coordination Abbie Ramesh Counseling and coordination of care (Primary Dx); [address] [place] [address] ERA Murray Essential hypertension; [place] [address] [address] Type 2 diabetes mellitus wit h other specified complication, with long-term current use of insulin (HCC) [phone] [place] [address] Social History Tobacco Use Types [...] 12/23/2018 organizations such as denominational groups, unions, fraStonestreet One or athletic groups, or school groups? How [...] is first attempt to call this month. ER ESTHETICIAN Angie Bynum RN - 03/23/2020 2:40 PM CST Pt left her name phone number and on CCM VM. No other. Information. ER ESTHETICIAN Abbie Ramesh RN - 03/23/2020 2:40 PM [...] [facility]) Dr. Vazquez Last: 03/16/20 Due: Blood [...] Nurse (Diabetes Education) Abbie Ramesh RN as Flare Breaker Future Scheduled Appointments No future appointments. Health Maintenance Health Maintenance Topic Date Due ??? Glaucoma Screening 67+ Yr 12/18/2019 ??? Urine Protein Screening 05/31/2020 ??? Hemoglobin A1C 06/14/2020 ??? Lipid Panel 09/05/2020 ??? Mammogram 12/01/2020 ??? Ophthalmology Exam 12/25/2020 ??? Fall Risk Performed 01/12/2021 ??? [facility] Annual Wellness 01/12/2021 ??? Diabetic Foot Exam 03/16/2021 ??? Colorectal Cancer Screening: Colonoscopy 05/21/2021 ??? [facility] Pneumococcal Vaccine: 65+ Years Completed ? ? [facility] Pneumococcal Vaccine: <64 Aged Out ??? HPV Vaccines Aged Out Notes: Eye exam due 1 Progress evaluated against: Health Maintenance ER ESTHETICIAN Corrine Vazquez MD - 03/23/2020 2:40 PM CST Call Luclemencia and let her know that it is okay for her to just start taking the 5 mg tablets once a day at this time. If it is hard to cut them into she can dispense with this part of the instructions. ER ESTHETICIAN Margareth Sanchez RN - 03/23/2020 2:40 PM CST Patient informed. ER ESTHETICIAN documented in this encounter Plan of Treatment Not on filedocumented as of this encounter Goals Goal Patient Goal Associated Recent Patient-Stated? Author Type Problems Progress Routine Health General No change No Domitila, Management (02/05/2021 Abbie Murray, 11:19 AM MASTER ESTHETICIAN) RN Note: Formatting of this note is differe nt from the original. Routine Health Management Care Team Patient Care Team: Corrine Vazquez MD as PCP - General ([facility] Medicine) Yossi Potts, RN as Registered Nurse (Diabetes Education) Abbie Ramesh, ERA as Flare Breaker Future Scheduled Appointments No future appointments. Health Maintenance Health Maintenance Topic Date Due Urine Protein Screening 05/31/2020 Lipid Panel 09/05/2020 Glaucoma Screening 67+ Yr 12/25/2020 Ophthalmology Exam 12/25/2020 [facility] Annual Wellness 01/12/2021 Hemoglobin A1C 01/24/2021 Diabetic Foot Exam 03/16/2021 Colorectal Cancer Screening: Colonoscop y 05/21/2021 Fall Risk Performed 06/05/2021 Mammogram 12/03/2021 COVID-19 Vaccine Completed [facility] Pneumococcal Vaccine: <64 Completed [facility] Pneumococcal Vaccine: 65+ Years Com pleted HPV Vaccines Aged Out Notes: Due: Urine Protein screening Eye exam AWV A1C Lipid panel Diabetes Management General No change (02/05/2021 11:17 AM No Abbie Ramesh, RN MASTER ESTHETICIAN) Note: Formatting of this note is differe [...] track (02/05/2021 Abbie Monzon RN 11:14 AM MASTER ESTHETICIAN) Note: Formatting of this note is differe [...] (HCC) documented in this encounter Care Teams Electrician Relationship Specialty Start Date End Date Corrine Vazquez MD PCP - General Family Medicine 07/07/19 08/19/[address] [place] [address] documented as of this encounter
--- OUTSIDE RECORDS SUMMARY | 2021-12-10 15:17 | XMS_ITS | Encounter Summary ---
:1945 Author Organization [facility] Address [address] [place] [address] Care Team Providers Name Role Phone Corrine Vazquez MD Primary Care Provider Reason for Visit Consultation (Routine) - Closed Specialty Diagnoses / Procedures Referred By Contact Refer red To Contact Family Medicine Diagnoses Enrolled in chronic care management Essential hypertension Type 2 diabetes mellitus with other specified complication, with long-term current use of insulin (HCC) Mixed hyperlipidemia Corrine Vazquez MD Care Coordination [address] [place] [address] [address] [place], [place] [phone] Referral ID Status Reason Start Date Expiration Date Visits V isits Requested Authorized [id number] Closed Specialty 02/21/2020 03/18/2021 99 99 Services Required Encounter Details Date Type Department Care Team Description 07/20/2020 Patient Outreach SE Care Coordination Abbie Ramesh Counseling and coordination of care (Primary Dx); [address] [place] [address] Terri RN Type 2 diabetes mellitus with other spec ified complication, with long-term current use of insulin (HCC); [place] [address] [address] [facility] Essential hypertension [phone] [place] [address] Social History Tobacco Use Types [...] 12/23/2018 organizations such as mandaeism groups, unions, fraCivatech Oncology or athletic groups, or school groups? How [...] (PCP; Cardiology; [facility]) Dr. Taylor MD (PCP)/Dr. Tena [...] Nurse (Diabetes Education) Abbie Ramesh RN as Crew Dispatcher Future Scheduled Appointments No future appointments. Health [...] - 07/20/2020 8:20 AM CDT Care Coordination National Dedicated Truck Driver: Abbie Ramesh RN Date: 07/24/2020 11:45 AM ??? Marcial calls in stating she has been busy/overwhelmed lately. Has had a lot of family stuff going on. ??? Marcial states feeling tired/weak at times. Feels similar to a few years ago when she had to havea stent placed. Appt with [facility] Cardiology tomorrow. ??? Did not have any [...] Domitila Management (02/05/2021 Abbie Murray, 11:19 AM JEWEL BEARING BROACHER) RN Note: Formatting of this note is differe nt from the original. Routine Health Management Care Team Patient Care Team: Corrine Vazquez MD as PCP - [facility] Yossi Potts, RN as Registered Nurse (Diabetes Education) Abbie Ramesh RN as Crew Dispatcher Future Scheduled Appointments No future appointments. Health [...] (02/05/2021 11:17 AM No Abbie Ramesh RN JEWEL BEARING BROACHER) Note: Formatting of this note is differe [...] (02/05/2021 No Abbie Ramesh, RN 11:14 AM JEWEL BEARING BROACHER) Note: Formatting of this note is differe [...] hypertension documented in this encounter Care Teams Top Lift Nailer Relationship Specialty Start Date End Date Corrine Vazquez MD PCP - General Family Medicine 07/07/19 08/19/[address] [place] [address] documented as of this encounter
--- OUTSIDE RECORDS SUMMARY | 2021-12-10 15:17 | XMS_ITS | Encounter Summary ---
:1945 Author Organization [facility] Address [address] [place] [address] Care Team Providers Name Role Phone Corrine Vazquez MD Primary Care Provider Encounter Details Date Type Department Care Team Description 06/15/2020 Lab [place] Dizziness; [address] Chronic diarrhea; [place], [place] [address] Type 2 diabetes mellitus wit hout complication, with long-term current use of insulin (HCC); [phone] Type 2 diabetes mellitus with other specified [...] Domitila, Peter (02/05/2021 Abbie Murray 11:19 AM AIRFIELD DEFENCE GUARD) RN Note: Formatting of this note is differe nt from the original. Routine Health Management Care Team Patient Care Team: Corrine Vazquez MD as PCP - General ([facility] Medicine) Yossi Potts, RN as Registered Nurse (Diabetes Education) Abbie Ramesh, RN as Fuse Spooler Future Scheduled Appointments No future appointments. [...] change (02/05/2021 11:17 AM Abbie Monzon, RN AIRFIELD DEFENCE GUARD) Note: Formatting of this note is [...] track (02/05/2021 Abbie Monzon RN 11:14 AM AIRFIELD DEFENCE GUARD) Note: Formatting of this note is [...] P athologist Signature Tiss.Transglut <1.2 <4.0 06/19/2020 [facility] aminase Ab, S (Negative) 6:51 AM CDT LABORATORIES (IgA) U/mL Comment: Test Performed by: [facility] [address] [address] [address] Appraiser: Pradeep Parikh M.D. Ph. D.; CLIA# [id number] (IgA) Specimen Anatomical Collection Method Collection Time Receive d Time (Source) Location / / Volume Laterality 06/15/2020 9:16 AM 1 2:34 CDT PM CDT Antonio Madsen MD LAB BLOOD ORDERABLES Performing Organization Address City/State/ZIP Code Phon e Number [facility] see result attachment for specific address (ABNORMAL) Hemoglobin A1c (06/15/2020 9:16 AM CDT) Analysis Performed At Patho logist Time Signature Hemoglobin A1C 8.4 (H) 4.0 - 5.6 06/15/2020 [place] % A1C 2:03 PM CDT [facility] Comment: Reference Range [...] Phon e Number [facility] [address] [place] [address] Celiac Disease Serology [place] (06/15/2020 9:16 AM CDT) Patholo gist Method Time Signature Immunoglobulin A 313 61 - 356 06/18/2020 [facility] (IgA) mg/dL 10:15 PM CDT LABORATORIES Interpretation - 06/18/2020 [facility] 10:15 PM CDT LABORATORIES Comment: Negative serology. Celiac disease unlike ly. However, approximately 10% of patients with casimiro c disease are seronegative. Also, patients who are alr claude adhering to a gluten-free diet may be seronegative. If celiac disease is highly clinically suspected, consider HL A-DQ typing. Test Performed by: [facility] [address] [address] [address] Appraiser: Pradeep Parikh M.D. Ph. D.; CLIA# [id number] Specimen Anatomical Collection Method Collection Time Receive d Time (Source) Location / / Volume Laterality Blood 06/15/2020 9:16 AM 2:34 CDT PM CDT Antonio Madsen MD LAB BLOOD ORDERABLES Performing Organization Address City/[facility]/ZIP Code Phon e Number [facility] see result attachment for specific address Vitamin B12 (06/15/2020 9:16 AM CDT) athologist Signature Vitamin B-12 737 392 - 641 06/15/2020 [facility] pg/mL 2:45 PM CDT CENTER LABORATORY Comment: [...] Phon e Number [facility] [address] [place] [address] documented in this encounter Visit Diagnoses Diagnosis Dizziness Dizziness and giddiness Chronic diarrhea Diarrhea Type 2 diabetes mellitus without complic ation, with long-term current use of insulin (HCC) Type 2 diabetes mellitus with other spec ified complication, with long-term current use of insulin (HCC) documented in this encounter Care Teams Events Administrative Assistant Relationship Specialty Start Date End Date Corrine Vazquez MD PCP - General Family Medicine 07/07/19 08/19/[address] [place] [address] documented as of this encounter
--- OUTSIDE RECORDS SUMMARY | 2021-12-10 15:17 | XMS_ITS | Encounter Summary ---
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 (Primary Dx); [address] Systolic murmur [place], [place] [address] [place] [address] [place], [place] [phone] Social History Tobacco Use Types Packs/Day Years [...] Comments Blood Pressure 134/72 02/21/2020 1:59 PM STARS ANALYTICAL LEAD Pulse 76 02/21/2020 1:59 PM STARS ANALYTICAL LEAD Temperature 36.8 ??C (98.3 ??F) 02/21/2020 1:59 PM STARS ANALYTICAL LEAD Respiratory Rate 16 02/21/2020 1:59 PM STARS ANALYTICAL LEAD Oxygen Saturation - - Inhaled Oxygen Concentration - - Weight 82.7 kg (182 lb 6.4 oz) 02/21/2020 1:59 PM STARS ANALYTICAL LEAD Height - - Body Mass Index 32.2 01/13/2020 2:24 PM STARS ANALYTICAL LEAD documented in this encounter Patient Instructions Patient [...] these instructions at home: Medicines ?? Take qebl-ese-kuduxja and prescription medicines only as told by [...] 07/29/2017 Document Revised: 07/29/2017 Document Reviewed: 07/29/2017 [employer] Interactive Patient Education ?? 2020 [employer]. S ANALYTICAL LEAD documented in this encounter Progress Notes Antonio [...] these instructions at home: Medicines ?? Take xnbi-dxu-grmyluj and prescription medicines only as told by [...] 07/29/2017 Document Revised: 07/29/2017 Document Reviewed: 07/29/2017 [employer] Interactive Patient Education ?? 2020 [employer]. Return if symptoms worsen or fail to improve. Note created using voice dictation software. S ANALYTICAL LEAD documented in this encounter Plan of Treatment Not on filedocumented as of this encounter Goals Goal Patient Goal Associated Recent Patient-Stated? Author Type Problems Progress Routine Health General No change Peter Monzon (02/05/2021 Abbie Murray, 11:19 AM STARS ANALYTICAL LEAD) RN Note: Formatting of this note is differe nt from the original. Routine Health Management Care Team Patient Care Team: Corrine Vazquez MD as PCP - General ([facility]) Yossi Potts, ERA as Registered Nurse (Diabetes Education) Abbie Ramesh RN as Fish Bait Picker Future Scheduled Appointments No future appointments. Health Maintenance Health Maintenance Topic Date Due Urine Protein Screening 05/31/2020 Lipid Panel 09/05/2020 Glaucoma Screening 67+ Yr 12/25/2020 Ophthalmology Exam 12/25/2020 [facility] Annual Wellness 01/12/2021 Hemoglobin A1C 01/24/2021 Diabetic Foot Exam 03/16/2021 Colorectal Cancer Screening: Colonoscop y 05/21/2021 Fall Risk Performed 06/05/2021 Mammogram 12/03/2021 COVID-19 Vaccine Completed [facility] Pneumococcal Vaccine: <64 Completed [facility] Pneumococcal Vaccine: 65+ Years Com pleted HPV Vaccines Aged Out Notes: Due: Urine Protein screening Eye exam AWV A1C Lipid panel Diabetes Management General No change (02/05/2021 11:17 AM No Abbie Ramesh, RN STARS ANALYTICAL LEAD) Note: Formatting of this note is [...] murmurs documented in this encounter Care Teams Market Editor Relationship Specialty Start Date End Date Corrine Vazquez MD PCP - General Family Medicine 07/07/19 08/19/[address] [place] [address] documented as of this encounter
--- OUTSIDE RECORDS SUMMARY | 2021-12-10 15:17 | XMS_ITS | Encounter Summary ---
:1945 Author Organization [facility] Address [address] [place] [address] Care Team Providers Name Role Phone Corrine Vazquez MD Primary Care Provider Encounter Details Date Type Department Care Team Description 04/01/2020 Orders Only [place] Corrine Vazquez MD [address] [facility] [address] [place], [place] [address] [place], [place] [phone] (Wo rk) Social History Tobacco Use Types [...] Domitila, Management (02/05/2021 Abbie Murray, 11:19 AM LPN) RN Note: Formatting of this note is differe nt from the original. Routine Health Management Care Team Patient Care Team: Corrine Vazquez MD as PCP - General ([facility] Medicine) Yossi Potts, RN as Registered Nurse (Diabetes Education) Abbie Ramesh RN as Com Writer Future Scheduled Appointments No future appointments. Health [...] (02/05/2021 11:17 AM No Abbie Ramesh, RN LPN) Note: Formatting of this note is differe [...] on filedocumented in this encounter Care Teams Lens Grinding Machine Operator Relationship Specialty Start Date End Date Corrine Vazquez MD PCP - General Family Medicine 07/07/19 08/19/[address] [place] [address] documented as of this encounter
--- OUTSIDE RECORDS SUMMARY | 2021-12-10 15:17 | XMS_ITS | Encounter Summary ---
:1945 Author Organization [facility] Address [address] [place] [address] Care Team Providers Name Role Phone Corrine Vazquez MD Primary Care Provider Encounter Details Date Type Department Care Team Description 03/18/2020 Orders Only [place] Corrine Vazquez Type [address] [place] mellitus with other [place], [place] [address] specified complication, [place] with long-term current [place] use [place] ([facility]) [phone] (Primary Dx) Social History Tobacco Use Types [...] (02/05/2021 Abbie Murray, 11:19 AM REAL ESTATE INVESTMENT ANALYST) RN Note: Formatting of this note is differe nt from the original. Routine Health Management Care Team Patient Care Team: Corrine Vazquez MD as PCP - General ([facility] Medicine) Yossi Potts, RN as Registered Nurse (Diabetes Education) Abbie Ramesh, RN as Club Director Future Scheduled Appointments No future appointments. [...] 11:17 AM Abbie Monzon, RN REAL ESTATE INVESTMENT ANALYST) Note: Formatting of this note is [...] Primary documented in this encounter Care Teams Anodize Machine Operator Relationship Specialty Start Date End Date Corrine Vazquez MD PCP - General Family Medicine 07/07/19 08/19/[address] [place] [address] documented as of this encounter
--- OUTSIDE RECORDS SUMMARY | 2021-12-10 15:17 | XMS_ITS | Encounter Summary ---
:1945 Author Organization [facility] Address [address] [place] [address] Care Team Providers Name Role Phone Corrine Vazquez MD Primary Care Provider Reason for Visit Consultation (Routine) - Closed Specialty Diagnoses / Procedures Referred By Contact Refer red To Contact Family Medicine Diagnoses Enrolled in chronic care management Essential hypertension Type 2 diabetes mellitus with other specified complication, with long-term current use of insulin (HCC) Mixed hyperlipidemia Corrine Vazquez MD Care Coordination [address] [place] [phone] Referral ID Status Reason Start Date Expiration Date Visits V isits Requested Authorized [id number] Closed Specialty 02/21/2020 03/18/2021 99 99 Services Required Encounter Details Date Type Department Care Team Description 04/25/2020 Patient Outreach SE Care Coordination Abbie Ramesh, [address] [place] [address] [place] [address] [place] [phone] Social History Tobacco Use Types Packs/Day Years [...] 12/23/2018 organizations such as confucianism groups, unions, [email or web address] or athletic groups, or school groups? How [...] first attempt to call this month. E SPECIALIST documented in this encounter Plan of Treatment Not on filedocumented as of this encounter Goals Goal Patient Goal Associated Recent Patient-Stated? Author Type Problems Progress Routine Health General No change Peter Monzon (02/05/2021 Abbie Murray, 11:19 AM CYCLE SPECIALIST) RN Note: Formatting of this note is differe nt from the original. Routine Health Management Care Team Patient Care Team: Corrine Vazquez MD as PCP - General ([facility]) Yossi Potts, RN as Registered Nurse (Diabetes Education) Abbie Ramesh RN as Trade Sales Assistant Future Scheduled Appointments No future appointments. [...] (02/05/2021 11:17 AM No Abbie Ramesh, RN CYCLE SPECIALIST) Note: Formatting of this note is [...] (02/05/2021 No Abbie Ramesh, RN 11:14 AM CYCLE SPECIALIST) Note: Formatting of this note is differe nt from the original. Cardiovascular Management Essential hypertension Chronic coronary artery disease Managed by (PCP; Cardiology; [facility]) Dr. Ronak lozoya [...] filedocumented in this encounter Care Teams Glass Block Installer Relationship Specialty Start Date End Date Corrine Vazquez MD PCP - General Family Medicine 07/07/19 08/19/[address] [place] [address] documented as of this encounter
--- OUTSIDE RECORDS SUMMARY | 2021-12-10 15:17 | XMS_ITS | Encounter Summary ---
:1945 Author Organization [facility] Address [address] [place] [address] Care Team Providers Name Role Phone Corrine Vazquez MD Primary Care Provider Reason for Visit Reason Onset Date Comments Med Refill 03/19/2020 Encounter Details Date Type Department Care Team Description 03/19/2020 Telephone [place] Corrine Vazquez MD Med Refill [address] [place], [place] [address] [place], [place] [phone] (Wo rk) Social History Tobacco Use Types [...] LPN - 03/19/2020 9:00 AM CST Noted NG MILL SET UP OPERATOR VERTICAL Telephone Encounter - Luciana Albarado - 03/19/2020 8:32 AM CST Both Rx's faxed to [facility] as requested. NG MILL SET UP OPERATOR VERTICAL Telephone Encounter - Margareth Sanchez RN - 03/19/2020 8:13 AM CST Please fax Rx for Xanax and test strips to patients pharmacy [facility]. NG MILL SET UP OPERATOR VERTICAL documented in this encounter Plan of Treatment Not on filedocumented as of this encounter Goals Goal Patient Goal Associated Recent Patient-Stated? Author Type Problems Progress Routine Health General No change Peter Monzon (02/05/2021 Abbie Murray, 11:19 AM BORING MILL SET UP OPERATOR VERTICAL) RN Note: Formatting of this note is differe nt from the original. Routine Health Management Care Team Patient Care Team: Corrine Vazquez MD as PCP - General ([facility] Yossi Potts, RN as Registered Nurse (Diabetes Education) Abbie Ramesh RN as Exterminator Future Scheduled Appointments No future appointments. Health Maintenance Health Maintenance Topic Date Due Urine Protein Screening 05/31/2020 Lipid Panel 09/05/2020 Glaucoma Screening 67+ Yr 12/25/2020 Ophthalmology Exam 12/25/2020 [facility] Annual Wellness 01/12/2021 [...] change (02/05/2021 11:17 AM Abbie Monzon, RN BORING MILL SET UP OPERATOR VERTICAL) Note: Formatting of this note is differe [...] on filedocumented in this encounter Care Teams Honey Processor Relationship Specialty Start Date End Date Corrine Vazquez MD PCP - General Family Medicine 07/07/19 08/19/[address] [place] [address] documented as of this encounter
--- OUTSIDE RECORDS SUMMARY | 2021-12-10 15:17 | XMS_ITS | Encounter Summary ---
:1945 Author Organization [facility] Address [address] [place] [address] Care Team Providers Name Role Phone Corrine Vazquez MD Primary Care Provider Reason for Visit Consultation (Routine) - Closed Specialty Diagnoses / Procedures Referred By Contact Refer red To Contact Diagnoses Medicare annual wellness visit, initial Corrine Vazquez MD Care Coordination [address] [place] [address] [place], [place] [phone] Referral ID Status Reason Start Date Expiration Date Visits V isits Requested Authorized [id number] Closed Specialty 12/23/2018 99 99 Services Required Encounter Details Date Type Department Care Team Description 02/01/2020 Patient Outreach SE Care Coordination Abbie Ramesh Counseling and [address] [place] [address] J, RN coordination of care [place], [place] [phone] [id number] (Primary Dx) [phone] [place] [address] Social History Tobacco Use Types [...] is first attempt to call this month. TURNING MACHINE OPERATOR Abbie Ramesh RN - 02/01/2020 11:20 AM CST Care Plan - Care Coordination Contact Date: 02/16/2020 2:32 PM Called for monthly follow up and progress; Left message to call back.. This is second attempt to call this month. Also address telephone encounter from yesterday 02/14. TURNING MACHINE OPERATOR documented in this encounter Plan of Treatment Not on filedocumented as of this encounter Goals Goal Patient Goal Associated Recent Patient-Stated? Author Type Problems Progress Routine Health General No change Peter Monzon (02/05/2021 Abbie Murray, 11:19 AM WIRE TURNING MACHINE OPERATOR) RN Note: Formatting of this note is differe nt from the original. Routine Health Management Care Team Patient Care Team: Corrine Vazquez MD as PCP - General ([facility]) Yossi Potts, RN as Registered Nurse (Diabetes Education) Abbie Ramesh RN as Panel Monitor Future Scheduled Appointments No future appointments. Health [...] (02/05/2021 11:17 AM No Abbie Ramesh RN WIRE TURNING MACHINE OPERATOR) Note: Formatting of this note [...] imary documented in this encounter Care Teams Sales Branch Manager Relationship Specialty Start Date End Date Corrine Vazquez MD PCP - General Family Medicine 07/07/19 08/19/[address] [place] [address] documented as of this encounter
--- OUTSIDE RECORDS SUMMARY | 2021-12-10 15:17 | XMS_ITS | Encounter Summary ---
:1945 Author Organization [facility] Address [address] [place] [address] Care Team Providers Name Role Phone Corrine Vazquez MD Primary Care Provider Reason for Visit Reason Onset Date Comments Mammogram 202003/22/2020 Encounter Details Date Type Department Care Team Description 03/22/2020 Telephone [place] Corrine Vazquez MD Mammogram [address] [place], [place] [address] [place], [place] [phone] (Wo rk) Social History Tobacco Use Types [...] - 03/22/2020 2:15 PM CST DONE 12/02/2019 [facility] Telephone Encounter - Lana Knight LPN - 03/22/2020 2:09 PM CST The patient is due for a mammogram. The nurse is needing to know where they want it done at and when? [facility] documented in this encounter Plan of Treatment Not on filedocumented as of this encounter Goals Goal Patient Goal Associated Recent Patient-Stated? Author Type Problems Progress Routine Health General No change No Domitila, Peter (02/05/2021 Abbie Murray 11:19 AM CONTOUR STITCHER) RN Note: Formatting of this note is differe nt from the original. Routine Health Management Care Team Patient Care Team: Corrine Vazquez MD as PCP - [facility] Yossi Potts RN as Registered Nurse (Diabetes Education) Abbie Ramesh RN as Cooling System Operator Future Scheduled Appointments No future [...] change (02/05/2021 11:17 AM Abbie Monzon, RN CONTOUR STITCHER) Note: Formatting of this note is differe [...] filedocumented in this encounter Care Teams Clinical Research Spec Relationship Specialty Start Date End Date Corrine Vazquez MD PCP - General Family Medicine 07/07/19 08/19/[address] [place] [address] documented as of this encounter
--- OUTSIDE RECORDS SUMMARY | 2021-12-10 15:17 | XMS_ITS | Encounter Summary ---
:1945 Author Organization [facility] Address [address] [place] [address] Care Team Providers Name Role Phone Corrine [...] Corrine Vazquez MD Care Coordination [facility] [address] [place], [place] [phone] Referral ID Status Reason Start Date Expiration Date Visits V isits Requested Authorized [id number] Closed Specialty 02/21/2020 03/18/2021 99 99 Services Required Encounter Details Date Type Department Care Team Description 02/21/2020 Patient Outreach SE Care Coordination Abbie Ramesh Counseling and coordination of care (Primary Dx); [address] [place] [address] Terri RN Type 2 diabetes mellitus with other spec ified complication, with long-term current use of insulin (HCC); [place] [address] [address] [facility] Essential hypertension [phone] [place] [address] Social History Tobacco Use Types [...] 12/23/2018 organizations such as mu-ism groups, unions, fra[employer] or athletic groups, or school groups? How [...] (Diabetes Education) Abbie Ramesh RN as Head Cd Reactor Operator Future Scheduled Appointments Future Appointments Date Time Provider Department Center 02/21/2020 2:00 PM Antonio Madsen MD [place] Health Maintenance Health Maintenance Topic Date Due ??? Diabetic Foot Exam 07/16/2019 ??? Mammogram 11/26/2019 ??? Glaucoma Screening 67+ Yr 12/18/2019 ??? Hemoglobin A1C 03/16/2020 ??? Urine Protein Screening 05/31/2020 ??? Lipid Panel 09/05/2020 ??? Ophthalmology Exam 12/25/2020 ??? Fall Risk Performed 01/12/2021 ??? [facility] Annual Wellness 01/12/2021 ??? Colorectal Cancer Screening: Colonoscopy 05/21/2021 ??? [facility] Pneumococcal Vaccine: 65+ Years Completed ? ? [facility] Pneumococcal Vaccine: <64 Aged Out ??? HPV Vaccines Aged Out Notes: 1 Progress evaluated against: Health Maintenance IDE BONE ROLLER Abbie Ramesh RN - 02/21/2020 10:00 AM [...] the morning and document blood sugar readings. IDE BONE ROLLER documented in this encounter Plan of Treatment Scheduled Referrals Name Type Priority Associated Diagnoses Order S [facility] Ambulatory referral Outpatient Routine Enrolled in [...] Domitila Management (02/05/2021 Abbie Murray, 11:19 AM RAWHIDE BONE ROLLER) RN Note: Formatting of this note is differe nt from the original. Routine Health Management Care Team Patient Care Team: Corrine Vazquez MD as PCP - General ([facility] Medicine) Yossi Potts, RN as Registered Nurse (Diabetes Education) Abbie Ramesh RN as Head Cd Reactor Operator Future Scheduled Appointments No future appointments. [...] (02/05/2021 11:17 AM No Abbie Ramesh RN RAWHIDE BONE ROLLER) Note: Formatting of this note is differe [...] hypertension documented in this encounter Care Teams Supervisor Livestock Yard Relationship Specialty Start Date End Date Corrine Vazquez MD PCP - General Family Medicine 07/07/19 08/19/[address] [place] [address] documented as of this encounter
--- OUTSIDE RECORDS SUMMARY | 2021-12-10 15:17 | XMS_ITS | Encounter Summary ---
:1945 Author Organization [facility] Address [address] [place] [address] Care Team Providers Name Role Phone Corrine Vazquez MD Primary Care Provider Reason for Visit Reason Onset Date Comments referral 03/19/2020 Encounter Details Date Type Department Care Team Description 03/19/2020 Telephone [place] Corrine Vazquez MD referral [address] [place], [place] [address] [place], [place] [phone] (Wo rk) Social History Tobacco Use Types [...] - 03/19/2020 8:16 AM CST Referral faxed. MACY TECHNICIAN INSTRUCTOR Telephone Encounter - Margareth Sanchez RN - 03/19/2020 7:57 AM CST Please fax. MACY TECHNICIAN INSTRUCTOR Telephone Encounter - Margareth aSnchez RN - 03/19/2020 7:57 AM CST ----- Message from Corrine Vazquez MD sent at 03/17/2020 12:40 PM PHARMACY TECHNICIAN INSTRUCTOR ----- I have placed an order for Marcial to get a BMD at the [facility]. Please copy and fax. MACY TECHNICIAN INSTRUCTOR documented in this encounter Plan of Treatment Not on filedocumented as of this encounter Goals Goal Patient Goal Associated Recent Patient-Stated? Author Type Problems Progress Routine Health General No change No Peter Ramesh (02/05/2021 Abbie Murray, 11:19 AM PHARMACY TECHNICIAN INSTRUCTOR) RN Note: Formatting of this note is differe nt from the original. Routine Health Management Care Team Patient Care Team: Corrine Vazquez MD as PCP - [facility] Yossi Potts, RN as Registered Nurse (Diabetes Education) Abbie Ramesh RN as Card Cutter Helper Future Scheduled Appointments No future [...] (02/05/2021 11:17 AM No Abbie Ramesh RN PHARMACY TECHNICIAN INSTRUCTOR) Note: Formatting of this note is [...] in this encounter Care Teams Director Of Supply Chain Relationship Specialty Start Date End Date Corrine Vazquez MD PCP - General Family Medicine 07/07/19 08/19/[address] [place] [address] documented as of this encounter
--- OUTSIDE RECORDS SUMMARY | 2021-12-10 15:17 | XMS_ITS | Encounter Summary ---
:[address] [facility] Address [address] [place] [address] Care Team Providers Name Role Phone Corrine Vazquez MD Primary Care Provider Reason for Referral Consultation (Routine) - Closed Specialty Diagnoses / Procedures Referred By Contact Refer red To Contact Family Medicine Diagnoses Enrolled in chronic care management Essential hypertension Type 2 diabetes mellitus with other specified complication, with long-term current use of insulin (HCC) Mixed hyperlipidemia Corrine Vazquez MD Care Coordination [address] [place] [address] [place], [place] [phone] Referral ID Status Reason Start Date Expiration Date Visits V isits Requested Authorized [id number] Closed Specialty 02/21/2020 03/18/2021 99 99 Services Required Scheduling Instructions Staff from this department will contact the patient to schedule an appointment. [employer] HANDLING Encounter Details Date Type Department Care Team Description 02/23/2020 Orders Only SE Care Coordination Corrine Vazquez Enrolled in chronic care man agement (Primary Dx); [address] [place] [address] MD [place] Essential hypertension; [place] [address] Type 2 diabetes mellitus wit h other specified complication, with long-term current use of insulin (HCC); [phone] [place] [address] Social History Tobacco Use Types Packs/Day Years [...] Name Type Priority Associated Diagnoses Order S [facility] Ambulatory referral Outpatient Routine Enrolled in chronic [...] Domitila Management (02/05/2021 Abbie Murray, 11:19 AM SUPERVISOR COAL HANDLING) RN Note: Formatting of this note is differe nt from the original. Routine Health Management Care Team Patient Care Team: Corrine Vazquez MD as PCP - General ([facility]) Yossi Potts, RN as Registered Nurse (Diabetes Education) Abbie Ramesh, RN as Wad Compressor Operator Adjuster Future Scheduled Appointments No future appointments. [...] [facility] Pneumococcal Vaccine: <64 Completed [facility] Pneumococcal Vaccine: 65+ Years Com pleted HPV Vaccines Aged Out Notes: Due: Urine Protein screening Eye exam AWV A1C Lipid panel Diabetes Management General No change (02/05/2021 11:17 AM No Abbie Ramesh, RN SUPERVISOR COAL HANDLING) Note: Formatting of this note is differe [...] documented in this encounter Care Teams Warehouse Examiner Relationship Specialty Start Date End Date Corrine Vazquez MD PCP - General Family Medicine 07/07/19 08/19/[address] [place] [address] documented as of this encounter
--- OUTSIDE RECORDS SUMMARY | 2021-12-10 15:17 | XMS_ITS | Encounter Summary ---
:1945 Author Organization [facility] Address [address] [place] [address] Care Team Providers Name Role Phone Corrine Vazquez MD Primary Care Provider Encounter Details Date Type Department Care Team Description 05/21/2020 Orders Only [place] Corrine Vazquez MD [address] [facility] [address] [place], [place] [address] [place], [place] [phone] (Wo rk) Social History Tobacco Use Types [...] Domitila, Management (02/05/2021 Abbie Murray, 11:19 AM AUDIO VISUAL MANAGER) RN Note: Formatting of this note is differe nt from the original. Routine Health Management Care Team Patient Care Team: Corrine Vazquez MD as PCP - General ([facility] Medicine) Yossi Potts, RN as Registered Nurse (Diabetes Education) Abbie Ramesh RN as Operations Accountant Future Scheduled Appointments No future appointments. [...] General No change (02/05/2021 11:17 AM No Abibe Ramesh, RN AUDIO VISUAL MANAGER) Note: Formatting of this note is [...] track (02/05/2021 Abbie Monzon RN 11:14 AM AUDIO VISUAL MANAGER) Note: Formatting of this note is differe nt from the original. Cardiovascular Management Essential hypertension Chronic coronary artery disease Managed by (PCP; Cardiology; [facility]) Dr. Ronak lozoya MD (PCP)/Dr. [...] on filedocumented in this encounter Care Teams Expense Clerk Relationship Specialty Start Date End Date Corrine Vazquez MD PCP - General Family Medicine 07/07/19 08/19/[address] [place] [address] documented as of this encounter
--- OUTSIDE RECORDS SUMMARY | 2021-12-10 15:17 | XMS_ITS | Encounter Summary ---
:1945 Author Organization [facility] Address [address] [place] [address] Care Team Providers Name Role Phone Corrine Vazquez MD Primary Care Provider Reason for Visit Reason Onset Date Comments yeast inf Rx 06/22/2020 Encounter Details Date Type Department Care Team Description 06/22/2020 Telephone [place] Antonio Madsen MD yeast inf Rx [address] [place], [place] [address] [place], [place] [phone] (Wo rk) Social History Tobacco Use Types [...] uses [facility] [employer]. Please call Pt [phone] to advise. documented in this encounter Plan of Treatment Not on filedocumented as of this encounter Goals Goal Patient Goal Associated Recent Patient-Stated? Author Type Problems Progress Routine Health General No change Peter Monzon (02/05/2021 Abbie Murray, 11:19 AM STUDENT LIFE DEAN) RN Note: Formatting of this note is differe nt from the original. Routine Health Management Care Team Patient Care Team: Corrine Vazquez MD as [facility] - [facility] Yossi Potts, RN as Registered Nurse (Diabetes Education) Abbie Ramesh RN as Special Procedures Tech Future Scheduled Appointments No future appointments. Health Maintenance Health Maintenance Topic Date Due Urine Protein Screening 05/31/2020 Lipid Panel 09/05/2020 Glaucoma Screening 67+ Yr 12/25/2020 Ophthalmology Exam 12/25/2020 [facility] Annual Wellness 01/12/2021 Hemoglobin A1C 01/24/2021 Diabetic Foot Exam 03/16/2021 Colorectal Cancer Screening: Colonoscop y 05/21/2021 Fall Risk Performed 06/05/2021 Mammogram 12/03/2021 COVID-19 Vaccine Completed [facility] Pneumococcal Vaccine: <64 Completed [facility] Pneumococcal Vaccine: 65+ Years Com pleted HPV Vaccines Aged Out Notes: Due: Urine Protein screening Eye exam AWV A1C Lipid panel Diabetes Management General No change (02/05/2021 11:17 AM Abbie Monzon, RN STUDENT LIFE DEAN) Note: Formatting of this note is differe [...] (02/05/2021 No Abbie Ramesh, RN 11:14 AM STUDENT LIFE DEAN) Note: Formatting of this note is differe [...] documented in this encounter Care Teams Director Hospice Operations Relationship Specialty Start Date End Date Corrine Vazquez MD PCP - General Family Medicine 07/07/19 08/19/[address] [place] [address] documented as of this encounter
--- OUTSIDE RECORDS SUMMARY | 2021-12-10 15:17 | XMS_ITS | Encounter Summary ---
:1945 Author Organization [facility] Address [address] [place] [address] Care Team Providers Name Role Phone Corrine Vazquez MD Primary Care Provider Reason for Visit Reason Comments Follow-up lab results Encounter Details Date Type Department Care Team Description 06/19/2020 Office Visit [facility] Antonio Madsen., Type 2 diabetes mellitus wit h other specified complication, with long-term current use of insulin (HCC) (Primary Dx); [address] [facility] Stage 3 chronic kidney disease, unspecif ied whether stage 3a or 3b CKD [place], [place] [address] [address] [place], [place] [phone] [address] Social History Tobacco Use Types Packs/Day Years [...] basal insulin. Recommended follow up with her guest experience manager about this. Terms of her other symptoms [...] Domitila, Management (02/05/2021 Abbie Murray 11:19 AM AUTOMOBILE ACCESSORIES INSTALLER) RN Note: Formatting of this note is differe nt from the original. Routine Health Management Care Team Patient Care Team: Corrine Vazquez MD as PCP - General ([facility] Medicine) Yossi Potts RN as Registered Nurse (Diabetes Education) Abbie Ramesh, RN as Quarry Plug And Feather Driller Future Scheduled Appointments No future appointments. Health Maintenance Health Maintenance Topic Date Due Urine Protein Screening 05/31/2020 Lipid Panel 09/05/2020 Glaucoma Screening 67+ Yr 12/25/2020 Ophthalmology Exam 12/25/2020 [facility] Annual Wellness 01/12/2021 Hemoglobin A1C 01/24/2021 Diabetic Foot Exam 03/16/2021 Colorectal Cancer Screening: Colonoscop y 05/21/2021 Fall Risk Performed 06/05/2021 Mammogram 12/03/2021 COVID-19 Vaccine Completed [facility] Pneumococcal Vaccine: <64 Completed [facility] Pneumococcal Vaccine: 65+ Years Com pleted HPV Vaccines Aged Out Notes: Due: Urine Protein screening Eye exam AWV A1C Lipid panel Diabetes Management General No change (02/05/2021 11:17 AM Abbie Monzon, RN AUTOMOBILE ACCESSORIES INSTALLER) Note: Formatting of this note is [...] track (02/05/2021 Abbie Monzon RN 11:14 AM AUTOMOBILE ACCESSORIES INSTALLER) Note: Formatting of this note is [...] (HCC) documented in this encounter Care Teams Candy Dipper Hand Relationship Specialty Start Date End Date Corrine Vazquez MD PCP - General Family Medicine 07/07/19 08/19/[address] [place] [address] documented as of this encounter
--- OUTSIDE RECORDS SUMMARY | 2021-12-10 15:17 | XMS_ITS | Encounter Summary ---
:1945 Author Organization [facility] Address [address] [place] [address] Care Team Providers Name Role Phone Adriane Patel Ronak FIRE RANGE TECHNICIAN, CARD PLAYER Primary Care Provider [phone] Encounter Details Date Type Department Care Team Description 07/27/2020 Telephone [place] Corrine Vazquez MD [address] [place], [place] [address] [place], [place] [phone] (Wo rk) Social History Tobacco Use Types [...] Domitila, Management (02/05/2021 Abbie Murray, 11:19 AM TRAFFIC ENGINEER) RN Note: Formatting of this note is differe nt from the original. Routine Health Management Care Team Patient Care Team: Corrine Vazquez MD as PCP - General ([facility] Medicine) Yossi Potts, RN as Registered Nurse (Diabetes Education) Abbie Ramesh, RN as Tire Curer Future Scheduled Appointments No future appointments. Health Maintenance Health Maintenance Topic Date Due Urine Protein Screening 05/31/2020 Lipid Panel 09/05/2020 Glaucoma Screening 67+ Yr 12/25/2020 Ophthalmology Exam 12/25/2020 [facility] Annual Wellness 01/12/2021 Hemoglobin A1C 01/24/2021 Diabetic Foot Exam 03/16/2021 Colorectal Cancer Screening: Colonoscop y 05/21/2021 Fall Risk Performed 06/05/2021 Mammogram 12/03/2021 COVID-19 Vaccine Completed [facility] Pneumococcal Vaccine: <64 Completed [facility] Pneumococcal Vaccine: 65+ Years Com pleted HPV Vaccines Aged Out Notes: Due: Urine Protein screening Eye exam AWV A1C Lipid panel Diabetes Management General No change (02/05/2021 11:17 AM No Abbie Ramesh, RN TRAFFIC ENGINEER) Note: Formatting of this note is [...] track (02/05/2021 Abbie Monzon RN 11:14 AM TRAFFIC ENGINEER) Note: Formatting of this note is [...] on filedocumented in this encounter Care Teams Boarding House Manager Relationship Specialty Start Date End Date Adriane Patel APRN, CARD PLAYER PCP - General Family Medicine 08/20/21 [address] [place] [address] documented as of this encounter
--- OUTSIDE RECORDS SUMMARY | 2021-12-10 15:17 | XMS_ITS | Encounter Summary ---
:1945 Author Organization [facility] Address [address] [place] [address] Care Team Providers Name Role Phone Corrine Vazquez MD Primary Care Provider Encounter Details Date Type Department Care Team Description 07/29/2020 Orders Only [place] Corrine Vazquez MD [address] [facility] [address] [place], [place] [address] [place], [place] [phone] (Wo rk) Social History Tobacco Use Types [...] Domitila, Management (02/05/2021 Abbie Murray, 11:19 AM NETWORK ENGINEER) RN Note: Formatting of this note is differe nt from the original. Routine Health Management Care Team Patient Care Team: Corrine Vazquez MD as PCP - General ([facility] Medicine) Yossi Potts, RN as Registered Nurse (Diabetes Education) Abbie Ramesh RN as Cleaner Furniture Future Scheduled Appointments No future appointments. Health Maintenance Health Maintenance Topic Date Due Urine Protein Screening 05/31/2020 Lipid Panel 09/05/2020 Glaucoma Screening 67+ Yr 12/25/2020 Ophthalmology Exam 12/25/2020 [facility] Annual Wellness 01/12/2021 Hemoglobin A1C 01/24/2021 Diabetic Foot Exam 03/16/2021 Colorectal Cancer Screening: Colonoscop y 05/21/2021 Fall Risk Performed 06/05/2021 Mammogram 12/03/2021 COVID-19 Vaccine Completed [facility] Pneumococcal Vaccine: <64 Completed [facility] Pneumococcal Vaccine: 65+ Years Com pleted HPV Vaccines Aged Out Notes: Due: Urine Protein screening Eye exam AWV A1C Lipid panel Diabetes Management General No change (02/05/2021 11:17 AM No Abbie Ramesh, RN NETWORK ENGINEER) Note: Formatting of this note is [...] track (02/05/2021 Abbie Monzon RN 11:14 AM NETWORK ENGINEER) Note: Formatting of this note is differe nt from the original. Cardiovascular Management Essential hypertension Chronic coronary artery disease Managed by (PCP; Cardiology; [facility]) Dr. Ronak lozoya MD (PCP)/Dr. Tena [...] filedocumented in this encounter Care Teams Retail Field Merchandiser Relationship Specialty Start Date End Date Corrine Vazquez MD PCP - General Family Medicine 07/07/19 08/19/[address] [place] [address] documented as of this encounter
--- OUTSIDE RECORDS SUMMARY | 2021-12-10 15:17 | XMS_ITS | Encounter Summary ---
:1945 Author Organization [facility] Address [address] [place] [address] Care Team Providers Name Role Phone Corrine Vazquez MD Primary Care Provider Encounter Details Date Type Department Care Team Description 03/16/2020 Lab James Pierre Hypothyroidism, unspecified type; [address] Type 2 diabetes mellitus wit h other specified complication, without long-term current use of insulin (HCC); [place], [place] [address] Type 2 diabetes mellitus wit h other specified complication, with long-term current use of insulin (HCC); [phone] Stage 3 chronic kidney disease; Abnormal liver [...] Ramesh, Peter (02/05/2021 Abbie Murray, 11:19 AM UPPER CUTTER) RN Note: Formatting of this note is differe nt from the original. Routine Health Management Care Team Patient Care Team: Corrine Vazquez MD as PCP - General ([facility] Medicine) Yossi Potts RN as Registered Nurse (Diabetes Education) Abbie Ramesh RN as Public Health Policy Analyst Future Scheduled Appointments No future appointments. Health Maintenance Health Maintenance Topic Date Due Urine Protein Screening 05/31/2020 Lipid Panel 09/05/2020 Glaucoma Screening 67+ Yr 12/25/2020 Ophthalmology Exam 12/25/2020 [facility] Annual Wellness 01/12/2021 Hemoglobin [...] (02/05/2021 11:17 AM No Abbie Ramesh, RN UPPER CUTTER) Note: Formatting of this note is differe [...] diabetes Results for this FILTRATION RATE AM UPPER CUTTER mellitus with other proce dure are in specified the results complication, section. without long-term current use of insulin (HCC) CBC Routine 03/16/2020 10:17 Type 2 diabetes Results for this AM UPPER CUTTER mellitus with other procedur e are in specified the results complication, with section. long-term current use of insulin ( HCC) Stage 3 chronic kidney disease Abnormal liver function test TSH Routine 03/16/2020 10:17 Hypothyroidism, Results for this AM UPPER CUTTER unspecified type procedure a re in the results section. HEMOGLOBIN A1C Routine 03/16/2020 10:17 Type 2 diabetes Result s for this AM UPPER CUTTER mellitus with other procedur e are in specified the results complication, section. without long-term current use of insulin (HCC) HEPATIC FUNCTION Routine 03/16/2020 10:17 Type 2 diabetes Resu lts for this PANEL AM UPPER CUTTER mellitus with other procedur e are in specified the results complication, with section. long-term current use of insulin ( HCC) Mixed hyperlipid emia Abnormal liver function test BASIC METABOLIC Routine 03/16/2020 10:17 Type 2 diabetes Resul ts for this PANEL AM UPPER CUTTER mellitus with other procedur e are in specified the results complication, section. without long-term current use of insulin (HCC) documented in this encounter Results (ABNORMAL) Glomerular filtration rate (GFR) (03/16/2020 10:17 AM UPPER CUTTER) P athologist Signature GFR 44 (A) 03/16/2020 [facility] 6:25 PM [facility] 53 (A) 03/16/2020 [facility] Citizen [place] GFR 6:25 PM [facility] Comment: GFR calculated from serum creatinine v alue Chronic Kidney Disease less than 60 mL/m in/1.73 m2 Kidney Failure less than 15 mL/min/1.73 m2 Note: effective 07/01/06 IDMS-Traceable MDRD Study Equation used. Specimen Anatomical Collection Method Collection Time Receive d Time (Source) Location / / Volume Laterality 03/16/2020 10:17 03/16/2020 AM UPPER CUTTER 10:17 AM UPPER CUTTER Corrine Vazquez MD LAB BLOOD ORDERABLES Performing Organization Address City/[facility]/ZIP Code Phon e Number [facility] [address] [place] [phone] Liver panel (03/16/2020 10:17 AM UPPER CUTTER) P athologist Signature Total Protein 7.7 6.3 - 8.2 03/16/2020 [facility] g/dL 6:25 PM [facility] Albumin, Serum 4.2 3.5 - 5.0 03/16/2020 [facility] g/dL 6:25 PM [facility] Total Bilirubin <0.7 0.1 - 1.0 03/16/2020 [facility] mg/dL 6:25 PM [facility] Bilirubin, <0.1 0.0 - 0.3 03/16/2020 [facility] Direct mg/dL 6:25 PM [facility] AST 27 8 - 43 U/L 03/16/2020 [facility] 6:25 PM [facility] Alkaline 66 38 - 128 03/16/2020 [facility] Phosphatase U/L 6:25 PM [facility] ALT (SGPT) 21 0 - 34 U/L 03/16/2020 [facility] 6:25 PM [facility] Specimen Anatomical Collection Method Collection Time Receive d Time (Source) Location / / Volume Laterality Blood 03/16/2020 10:17 03/16/2020 5:59 AM UPPER CUTTER PM UPPER CUTTER Bacilio DELA CRUZ LAB BLOOD ORDERABLES Performing Organization Address City/[facility] Phon e Number [facility] [address] [place] [address] (ABNORMAL) CBC ([facility]) (03/16/2020 10:17 AM UPPER CUTTER) P athologist Signature WBC 7.1 3.5 - 10.5 03/16/2020 [facility] [place] K/uL 10:23 AM [place]PPER CUTTER [place] RBC 3.91 3.90 - 5.00 03/16/2020 [facility] [place] M/uL 10:23 AM UPPER CUTTER [place] Hemoglobin 11.5 (L) 12.0 - 15.5 03/16/2020 [facility] [place] g/dL 10:23 AM UPPER CUTTER [place] Hematocrit 35.5 35.0 - 44.0 03/16/2020 [facility] [place] % 10:23 AM UPPER CUTTER [place] Platelets 199 150 - 450 03/16/2020 [facility] [place] K/uL 10:23 AM UPPER CUTTER [place] MCV 90.8 81.6 - 98.3 03/16/2020 [facility] [place] fL 10:23 AM UPPER CUTTER [place] MCH 29.4 26.0 - 32.0 03/16/2020 [facility] [place] pg 10:23 AM UPPER CUTTER [place] MCHC 32.4 32.0 - 36.0 03/16/2020 [facility] [place] g/dL 10:23 AM UPPER CUTTER [place] RDW 13.2 11.9 - 15.5 03/16/2020 [facility] [place] % 10:23 AM UPPER CUTTER [place] Specimen Anatomical Collection Method Collection Time Receive d Time (Source) Location / / Volume Laterality Blood 03/16/2020 10:17 03/16/2020 AM UPPER CUTTER 10:21 AM [facility] Bacilio DELA CRUZ LAB BLOOD ORDERABLES Performing Organization Address City/State/ZIP Code Phon e Number [facility] [place] [address] [place] [address] (ABNORMAL) Hemoglobin A1c (03/16/2020 10:17 AM UPPER CUTTER) Analysis Performed At Patho logist Time Signature Hemoglobin A1C 8.5 (H) 4.0 - 5.6 03/16/2020 [facility] % A1C 6:26 PM [facility] Comment: [...] Laterality Blood 03/16/2020 10:17 03/16/2020 5:59 AM UPPER CUTTER PM UPPER CUTTER Corrine Vazquez MD LAB BLOOD ORDERABLES Performing Organization Address City/[facility] Phon e Number [facility] [address] [place] [address] (ABNORMAL) Basic metabolic panel (03/16/2020 10:17 AM UPPER CUTTER) Analysis Performed At Patho logist Time Signature Sodium 138 135 - 145 03/16/2020 [facility] mEq/L 6:25 PM [facility] Potassium 4.1 3.5 - 5.1 03/16/2020 [facility] mEq/L 6:25 PM [facility] Chloride 104 98 - 107 03/16/2020 [facility] mEq/L 6:25 PM [facility] CO2 26 22 - 29 03/16/2020 [facility] mmol/L 6:25 PM [facility] Creatinine 1.2 0.4 - 1.2 03/16/2020 [facility] mg/dL 6:25 PM [facility] BUN 27 (H) 5 - 25 03/16/2020 [facility] mg/dL 6:25 PM [facility] Glucose 154 (H) 70 - 100 03/16/2020 [facility] mg/dL 6:25 PM [facility] Calcium, 10.1 8.4 - 10.2 03/16/2020 [facility] Total,S mg/dL 6:25 PM [facility] Fasting? No 03/16/2020 [facility] 10:21 AM [facility] [place] Specimen Anatomical Collection Method Collection Time Receive d Time (Source) Location / / Volume Laterality Blood 03/16/2020 10:17 03/16/2020 5:59 AM UPPER CUTTER PM UPPER CUTTER Corrine Vazquez MD LAB BLOOD ORDERABLES Performing Organization Address City/[facility]/ZIP Code Phon e Number [facility] JAMES PIERRE [address] [place] [address] [facility] [address] [place] [address] LABORATORY TSH (03/16/2020 10:17 AM UPPER CUTTER) P athologist Signature TSH, Sensitive 1.59 0.46 - 03/16/2020 [facility] MEDICA L 4.68 mIU/L 6:59 PM [facility] Comment: The results from this [...] Laterality Blood 03/16/2020 10:17 03/16/2020 5:59 AM UPPER CUTTER PM UPPER CUTTER D. [place] Vazquez MD LAB BLOOD ORDERABLES Performing Organization Address City/State/ZIP Code Phon e Number [facility] [address] [place] [phone] documented in this encounter Visit Diagnoses Diagnosis [...] hyperlipidemia documented in this encounter Care Teams Dual Rate Dealer Relationship Specialty Start Date End Date Corrine Vazquez MD PCP - General Family Medicine 07/07/19 08/19/[address] [place] [address] documented as of this encounter
--- OUTSIDE RECORDS SUMMARY | 2021-12-10 15:17 | XMS_ITS | Encounter Summary ---
:1945 Author Organization [facility] Address [address] [place] [address] Care Team Providers Name Role Phone Corrine Herrera MD Primary Care Provider Reason for Visit Reason Onset Date Comments RX 02/15/2020 Encounter Details Date Type Department Care Team Description 02/15/2020 Telephone [place] Corrine Herrera MD RX [address] [place], [place] [address] [place], [place] [phone] (Wo rk) Social History Tobacco Use Types [...] - 02/20/2020 2:24 PM CST Faxed to [facility] Addendum Note - Corrine Herrera MD - 02/20/2020 2:20 PM [facility] Addended by: Corrine HERRERA on: 02/20/2020 02:20 PM Modules accepted: Orders [facility] Addendum Note - Nilesh Sanchez RN - 02/20/2020 1:52 PM [facility] Addended by: NILESH SANCHEZ on: 02/20/2020 01:52 PM Modules accepted: Orders [facility] Telephone Encounter - Nilesh Sanchez RN - 02/20/2020 1:50 PM CST Patient received a letter that the accucheck Alison plus and its lancets will no longer be covered after 02/17/20. Patient had a letter stating the alternative would be the Contour next one. Please reviewRx request. [facility] Telephone Encounter - Nilesh Sanchez RN - 02/20/2020 1:46 PM CST Patient informed, she will keep track and let us know. [facility] Telephone Encounter - Corrine Herrera MD - [...] dinner and before she goes to bed. [facility] Telephone Encounter - Nilesh Sanchez RN - [...] numbers overall while still bringing downher A1C? [facility] Telephone Encounter - Corrine Herrera MD - [...] she is that certainly is her choice. [facility] Telephone Encounter - Nilesh Sanchez RN - 02/16/2020 2:28 PM CST Patient informed. Patient had an A1c 12/15/19 at [facility] of 8.4. Please advise on if she should change her medications etc. She questions if she should lower her insulin? She also wanted you to know that the Metformin is giving her a little diarrhea. [facility] Telephone Encounter - Corrine Herrera MD - [...] peanutbutter on it or something like that. [facility] Telephone Encounter - Nilesh Sanchez RN - [...] bit shaky. Please advise on medication question. [facility] Telephone Encounter - Corrine Herrera MD - 02/15/2020 2:39 PM CST There is another one we can try called Sherwin. If she is willing to try let me know and I will sendin for her. [facility] Telephone Encounter - Nilesh Sanchez RN - 02/15/2020 9:44 AM CST Please advise if there is another alternative you'd like to prescribe. [facility] Telephone Encounter - Phoebe Donohue - 02/15/2020 9:26 AM CST Patient was prescribed Pravastatin but stopped taking it because it caused nightmares. Please call her at [phone]. [facility] documented in this encounter Plan of Treatment Not on filedocumented as of this encounter Goals Goal Patient Goal Associated Recent Patient-Stated? Author Type Problems Progress Routine Health General No change Peter Monzon (02/05/2021 Abbie Murray, 11:19 AM [facility]) RN Note: Formatting of this note is differe nt from the original. Routine Health Management Care Team Patient Care Team: Corrine Herrera MD as PCP - [facility] ([facility]) Yossi Potts RN as Registered Nurse (Diabetes Education) Abbie Ramesh RN as Gut Cleaner Future Scheduled Appointments No future appointments. [...] change (02/05/2021 11:17 AM Abbie Monzon, RN [facility]) Note: Formatting of this note is differe [...] Primary documented in this encounter Care Teams Prepress Manager Relationship Specialty Start Date End Date Corrine Herrera MD PCP - General Family Medicine 07/07/19 08/19/[address] [place] [address] documented as of this encounter
--- OUTSIDE RECORDS SUMMARY | 2021-12-10 15:17 | XMS_ITS | Encounter Summary ---
:1945 Author Organization [facility] Address [address] [place] [address] Care Team Providers Name Role Phone Corrine Vazquez MD Primary Care Provider Reason for Visit Consultation (Routine) - Closed Specialty Diagnoses / Procedures Referred By Contact Refer red To Contact Family Medicine Diagnoses Enrolled in chronic care management Essential hypertension Type 2 diabetes mellitus with other specified complication, with long-term current use of insulin (HCC) Mixed hyperlipidemia Corrine Vazquez MD Care Coordination [address] [place] [address] [address] [place], [place] [phone] Referral ID Status Reason Start Date Expiration Date Visits V isits Requested Authorized [id number] Closed Specialty 02/21/2020 03/18/2021 99 99 Services Required Encounter Details Date Type Department Care Team Description 06/22/2020 Patient Outreach SE Care Coordination Abbie Ramesh Counseling and coordination of care (Primary Dx); [address] [place] [address] Terri RN Type 2 diabetes mellitus with other spec ified complication, with long-term current use of insulin (HCC); [place] [address] [address] [facility] Essential hypertension [phone] [place] [address] Social History Tobacco Use Types [...] 12/23/2018 organizations such as hoahaoism groups, unions, [email or web address] or athletic groups, or school groups? How [...] (PCP; Cardiology; [facility]) Dr. Taylor MD (PCP)/Dr. Tena [...] Nurse (Diabetes Education) Abbie Ramesh RN as Damage Assessor Future Scheduled Appointments No future appointments. Health [...] Peter Monzon (02/05/2021 Abbie Murray, 11:19 AM PRACTICAL NURSING FACULTY) RN Note: Formatting of this note is differe nt from the original. Routine Health Management Care Team Patient Care Team: Corrine Vazquez MD as PCP - General ([facility] Medicine) Yossi Potts RN as Registered Nurse (Diabetes Education) Abbie Ramesh RN as Damage Assessor Future Scheduled Appointments No future appointments. Health [...] change (02/05/2021 11:17 AM Abbie Monzon, RN PRACTICAL NURSING FACULTY) Note: Formatting of this note is differe [...] track (02/05/2021 Abbie Monzon RN 11:14 AM PRACTICAL NURSING FACULTY) Note: Formatting of this note is differe nt from the original. Cardiovascular Management Essential hypertension Chronic coronary artery disease Managed by ([facility]; [facility] Dr. Ronak lozoya MD (PCP)/Dr. [...] hypertension documented in this encounter Care Teams Entertainment Lawyer Relationship Specialty Start Date End Date Corrine Vazquez MD PCP - General Family Medicine 07/07/19 08/19/[address] [place] [address] documented as of this encounter
--- OUTSIDE RECORDS SUMMARY | 2021-12-10 15:17 | XMS_ITS | Encounter Summary ---
:1945 Author Organization [facility] Address [address] [place] [address] Care Team Providers Name Role Phone Corrine Vazquez MD Primary Care Provider Reason for Referral Consultation (Routine) - Closed Specialty Diagnoses / Procedures Referred By Contact Refer red To Contact Diagnoses Osteoporosis screening Corrine Vazquez MD [facility] [address] [place] [phone] Referral ID Status Reason Start Date Expiration Date Visits Requ ested Visits Authorized [id number] Closed 03/17/2020 03/17/2021 1 1 ANT COORDINATOR Reason for Visit Reason Comments Diabetes Encounter Details Date Type Department Care Team Description 03/16/2020 Office Visit [place] Corrine Vazquez Osteoporosis screening (Prim lara Dx); [address] MD [place] Type 2 diabetes mellitus with other spec ified complication, with long-term current use of insulin ([facility]); [place], [place] [address] [address] Essential hypertension; [phone] [place] Hypothyroidism, unspecified type; [place], [place] Anxiety; [phone] Type 2 diabetes mellitus with other spec ified complication, without long-term current use of insulin ([facility]) Social History Tobacco Use Types Packs/Day [...] Comments Blood Pressure 138/76 03/16/2020 9:09 AM IMPLANT COORDINATOR Pulse 88 03/16/2020 9:09 AM IMPLANT COORDINATOR Temperature 35.9 ??C (96.7 ??F) 03/16/2020 9:09 AM IMPLANT COORDINATOR Respiratory Rate 16 03/16/2020 9:09 AM IMPLANT COORDINATOR Oxygen Saturation 98% 03/16/2020 9:09 AM IMPLANT COORDINATOR Inhaled Oxygen Concentration - - Weight 82.1 kg (181 lb) 03/16/2020 9:09 AM IMPLANT COORDINATOR Height 160.3 cm (5' 3.11) 03/16/2020 9:09 AM IMPLANT COORDINATOR Body Mass Index 31.95 03/16/2020 9:09 AM IMPLANT COORDINATOR documented in this encounter Progress Notes Corrine [...] insulin. SECOND patient had her mammogram in [place] we do not have records on her [...] changes of medication and coordination of cares. ANT COORDINATOR documented in this encounter Plan of Treatment Scheduled Referrals Name Type Priority Associated Diagnoses Order S chedule Ambulatory External Outpatient Referral Routine Osteoporosis O rdered: Referral screening 03/17/2020 documented as of this encounter Goals Goal Patient Goal Associated Recent Patient-Stated? Author Type Problems Progress Routine Health General No change Peter Monzon (02/05/2021 Abbie Murray, 11:19 AM IMPLANT COORDINATOR) RN Note: Formatting of this note is differe nt from the original. Routine Health Management Care Team Patient Care Team: Corrine Vazquez MD as PCP - General ([facility] Medicine) Yossi Potts, RN as Registered Nurse (Diabetes Education) Abbie Ramesh RN as Consumer Affairs Director Future Scheduled Appointments No future appointments. Health Maintenance Health Maintenance Topic Date Due Urine Protein Screening 05/31/2020 Lipid Panel 09/05/2020 Glaucoma Screening 67+ Yr 12/25/2020 Ophthalmology Exam 12/25/2020 [facility] Annual Wellness 01/12/2021 Hemoglobin A1C 01/24/2021 Diabetic Foot Exam 03/16/2021 Colorectal Cancer Screening: Colonoscop y 05/21/2021 Fall Risk Performed 06/05/2021 Mammogram 12/03/2021 COVID-19 Vaccine Completed [facility] Pneumococcal Vaccine: <64 Completed [facility] Pneumococcal Vaccine: 65+ Years Com pleted HPV Vaccines Aged Out Notes: Due: Urine Protein screening Eye exam AWV A1C Lipid panel Diabetes Management General No change (02/05/2021 11:17 AM No Abbie Ramesh, RN IMPLANT COORDINATOR) Note: Formatting of this note is [...] this encounter Results TSH (03/16/2020 10:17 AM IMPLANT COORDINATOR) P athologist Signature TSH, Sensitive 1.59 0.46 - 03/16/2020 [facility] ROSARIO L 4.68 mIU/L 6:59 PM IMPLANT COORDINATOR [facility] Comment: The results from this [...] Laterality Blood 03/16/2020 10:17 03/16/2020 5:59 AM IMPLANT COORDINATOR PM IMPLANT COORDINATOR D. [place] Vazquez MD LAB BLOOD ORDERABLES Performing Organization Address City/State/ZIP Code Phon e Number [facility] [address] [place] [address] documented in this encounter Visit Diagnoses Diagnosis [...] (HCC) documented in this encounter Care Teams Fisher Lobster Relationship Specialty Start Date End Date Corrine Vazquez MD PCP - General Family Medicine 07/07/19 08/19/[address] [place] [address] documented as of this encounter
--- OUTSIDE RECORDS SUMMARY | 2021-12-10 15:17 | XMS_ITS | Encounter Summary ---
:[address] [facility] Address [address] [place] [address] Care Team Providers Name Role Phone Corrine Vazquez MD Primary Care Provider Reason for Visit Consultation (Routine) - Closed Specialty Diagnoses / Procedures Referred By Contact Refer red To Contact Family Medicine Diagnoses Enrolled in chronic care management Essential hypertension Type 2 diabetes mellitus with other specified complication, with long-term current use of insulin (HCC) Mixed hyperlipidemia Corrine Vazquez MD Care Coordination [address] [place] [address] [address] [place], [place] [phone] Referral ID Status Reason Start Date Expiration Date Visits V isits Requested Authorized [id number] Closed Specialty 02/21/2020 03/18/2021 99 99 Services Required Encounter Details Date Type Department Care Team Description 05/24/2020 Patient Outreach SE Care Abbie Ramesh and coordination of care (Primary Dx); Coordination Terri, RN Type 2 diabetes mellitus with other spec ified complication, with long-term current use of insulin (HCC); [address] [place] [address] [address] Essential hypertension; [place], [place] [phone] [place] [address] Mixed hyperlipidemia [phone] [place] [phone] Social History Tobacco Use Types Packs/Day Years [...] (PCP; Cardiology; [facility]) Dr. Vazquez Last: 03/16/20 Due: [...] Nurse (Diabetes Education) Abbie Ramesh, RN as Car Lot Attendant Future Scheduled Appointments No future appointments. Health [...] Out Notes: Eye exam due Covid Vaccine [facility] 2 05/15. Abbie Ramesh RN [...] Peter Monzon (02/05/2021 Abbie Murray, 11:19 AM CLOCK SMITH) RN Note: Formatting of this note is differe nt from the original. Routine Health Management Care Team Patient Care Team: Corrine Vazquez MD as PCP - General ([facility] Medicine) Yossi Potts, ERA as Registered Nurse (Diabetes Education) Abbie Ramesh RN as Car Lot Attendant Future Scheduled Appointments No future appointments. Health [...] change (02/05/2021 11:17 AM Abbie Monzon, RN CLOCK SMITH) Note: Formatting of this note is differe [...] (02/05/2021 No Abbie Ramesh, RN 11:14 AM CLOCK SMITH) Note: Formatting of this note is differe [...] hyperlipidemia documented in this encounter Care Teams Drop Forger Relationship Specialty Start Date End Date Corrine Vazquez MD PCP - General Family Medicine 07/07/19 08/19/[address] [place] [address] documented as of this encounter
--- OUTSIDE RECORDS SUMMARY | 2021-12-10 15:17 | XMS_ITS | Encounter Summary ---
:1945 Author Organization [facility] Address [address] [place] [address] Care Team Providers Name Role Phone Corrine Vazquez MD Primary Care Provider Reason for Visit Reason Onset Date Comments Appointment 03/08/2020 Encounter Details Date Type Department Care Team Description 03/08/2020 Telephone [place] Corrine Vazquez MD Appointment [address] [facility] [address] [place], [place] [address] [place], [place] [phone] (Wo rk) Social History Tobacco Use Types [...] CST Information printed and mailed to patient. PROPELLED DREDGE OPERATOR Telephone Encounter - Margareth Sanchez RN - 04/02/2020 10:32 AM CST Reviewed osteopenia in up to date, information not beneficial for this situation. Dr. Madsen, do you know how to look up education material within [employer] for osteopenia that we can print for this patient? PROPELLED DREDGE OPERATOR Telephone Encounter - Corrine Vazquez MD - 04/02/2020 10:10 AM CST Can you check with [facility] orthopedic department to see if they have any general pamphlets or information that can be sent to [facility] in regard to osteopi??a and osteoporosis. Or you could search up-to-date and come up with some information as well. Thanks PROPELLED DREDGE OPERATOR Telephone Encounter - Margareth Sanchez RN - 04/02/2020 8:06 AM CST Patient informed, she questions if you can send her some information on Osteopenia so she can learn more about it? PROPELLED DREDGE OPERATOR Telephone Encounter - Margareth Sanchez RN - 03/08/2020 1:38 PM CST FYI PROPELLED DREDGE OPERATOR Telephone Encounter - Luciana Albarado - 03/08/2020 12:14 PM CST Appt scheduled for 03/16/20 as requested. PROPELLED DREDGE OPERATOR Telephone Encounter - Margareth Sanchez RN - 03/08/2020 11:47 AM CST Patient is due for a mammogram and a diabetic recheck with foot exam and nonfasting labs. Please call patient to schedule. PROPELLED DREDGE OPERATOR documented in this encounter Plan of Treatment Not on filedocumented as of this encounter Goals Goal Patient Goal Associated Recent Patient-Stated? Author Type Problems Progress Routine Health General No change Peter Monzon (02/05/2021 Abbie Murray, 11:19 AM SELF PROPELLED DREDGE OPERATOR) RN Note: Formatting of this note is differe nt from the original. Routine Health Management Care Team Patient Care Team: Corrine Vazquez MD as PCP - General ([facility] Medicine) Yossi Potts, RN as Registered Nurse (Diabetes Education) Abbie Ramesh, ERA as Board Of Education Secretary Future Scheduled Appointments No future appointments. Health [...] change (02/05/2021 11:17 AM Abbie Monzon, RN SELF PROPELLED DREDGE OPERATOR) Note: Formatting of this note is [...] on filedocumented in this encounter Care Teams Skirt Trimmer Relationship Specialty Start Date End Date Corrine Vazquez MD PCP - General Family Medicine 07/07/19 08/19/[address] [place] [address] documented as of this encounter
--- OUTSIDE RECORDS SUMMARY | 2021-12-10 15:17 | XMS_ITS | Encounter Summary ---
:1945 Author Organization [facility] Address [address] [place] [address] Care Team Providers Name Role Phone Corrine [...] Ramesh Management (02/05/2021 Abbie Murray, 11:19 AM COUNTRY SALES MANAGER) RN Note: Formatting of this note is differe nt from the original. Routine Health Management Care Team Patient Care Team: Corrine Vazquez MD as PCP - General ([facility] Medicine) Yossi Potts, RN as Registered Nurse (Diabetes Education) Abbie Ramesh, RN as Recycling Director Future Scheduled Appointments No future appointments. Health Maintenance Health Maintenance Topic Date Due Urine Protein Screening 05/31/2020 Lipid Panel 09/05/2020 Glaucoma Screening 67+ Yr 12/25/2020 Ophthalmology Exam 12/25/2020 [facility] Annual Wellness 01/12/2021 Hemoglobin A1C 01/24/2021 Diabetic Foot Exam 03/16/2021 Colorectal Cancer Screening: Colonoscop y 05/21/2021 Fall Risk Performed 06/05/2021 Mammogram 12/03/2021 COVID-19 Vaccine Com[place] [facility] Pneumococcal Vaccine: <64 Completed [facility] Pneumococcal Vaccine: 65+ Years Com pleted HPV Vaccines Aged Out Notes: Due: Urine Protein screening Eye exam AWV A1C Lipid panel Diabetes Management General No change (02/05/2021 11:17 AM No Abbie Ramesh, RN COUNTRY SALES MANAGER) Note: Formatting of this note is [...] track (02/05/2021 Abbie Monzon RN 11:14 AM COUNTRY SALES MANAGER) Note: Formatting of this note is differe nt from the original. Cardiovascular Management Essential hypertension Chronic coronary artery disease Managed by (PCP; Cardiology; [facility]) Dr. Ronak lozoya MD (PCP)/Dr. Tena [...] on filedocumented in this encounter Care Teams Distiller Relationship Specialty Start Date End Date Corrine Vazquez MD PCP - General Family Medicine 07/07/19 08/19/[address] [place] [address] documented as of this encounter
--- OUTSIDE RECORDS SUMMARY | 2021-12-10 15:18 | XMS_ITS | Encounter Summary ---
:1945 Author Organization [facility] Address [address] [place] [address] Care Team Providers Name Role Phone Corrine Vazquez MD Primary Care Provider Encounter Details Date Type Department Care Team Description 11/25/2019 Orders Only SE Care Coordination Corrine Vazquez Type 2 diabetes [address] [facility] MD [place] [address] specified complication, [place] with long-term current [place], [place] use of [place] ([facility]) [phone] (Primary Dx) Social History Tobacco Use Types [...] Domitila, Management (02/05/2021 Abbie Murray, 11:19 AM VEHICLE SAFETY INSPECTOR) RN Note: Formatting of this note is differe nt from the original. Routine Health Management Care Team Patient Care Team: Corrine Vazquez MD as PCP - General ([facility]) Yossi Potts, RN as Registered Nurse (Diabetes Education) Abbie Ramesh RN as Laser Engineer Future Scheduled Appointments No future appointments. [...] (02/05/2021 11:17 AM No Abbie Ramesh RN VEHICLE SAFETY INSPECTOR) Note: Formatting of this note is [...] Primary documented in this encounter Care Teams Transport Medic Relationship Specialty Start Date End Date Corrine Vazquez MD PCP - General Family Medicine 07/07/19 08/19/[address] [place] [address] documented as of this encounter
--- OUTSIDE RECORDS SUMMARY | 2021-12-10 15:18 | XMS_ITS | Encounter Summary ---
:1945 Author Organization [facility] Address [address] [place] [address] Care Team Providers Name Role Phone Corrine Vazquez MD Primary Care Provider Reason for Visit Reason Onset Date Comments talk to nurse/lab results 09/08/2019 Encounter Details Date Type Department Care Team Description 09/08/2019 Telephone [place] Corrine Vazquez talk to nurse/lab [address] [place] results [place], [place] [address] [phone] [place] [address] Social History Tobacco Use Types Packs/Day Years [...] cholesterol panel pretty good. Since Dr. Stewart ([facility]'s Compensation And Benefits Analyst) is the one who ordered these tests he will most likely send her a lab letter as well as most likely adjust her medications. Marcial will be coming to our clinic for her diabetic cares after this so that she doesn't need to drive to [place]. Let Marcial know that if she doesn't hear from Dr. Stewart's office in the next 7-10 days regarding how to adjust her medications to treat her diabetes to let us know. Or also ask if she was going to go down to [facility] to consult with Dr. Stewart this one [...] Monzon (02/05/2021 Abbie Murray, 11:19 AM RN MATERNITY) RN Note: Formatting of this note is differe nt from the original. Routine Health Management Care Team Patient Care Team: Corrine Vazquez MD as [facility]CP - [facility]) Yossi Potts, RN as Registered Nurse (Diabetes Education) Abbie Ramesh RN as Adobe Flex Developer Future Scheduled Appointments No future appointments. Health Maintenance Health Maintenance Topic Date Due Urine Protein Screening 05/31/2020 Lipid Panel 09/05/2020 Glaucoma Screening 67+ Yr 12/25/2020 Ophthalmology Exam 12/25/2020 [facility] Annual Wellness 01/12/2021 Hemoglobin A1C 01/24/2021 Diabetic [...] change (02/05/2021 11:17 AM Abbie Monzon, RN RN MATERNITY) Note: Formatting of this note is differe [...] on filedocumented in this encounter Care Teams Burglar Alarm Mechanic Relationship Specialty Start Date End Date Corrine Vazquez MD PCP - General Family Medicine 07/07/19 08/19/[address] [place] [address] documented as of this encounter
--- OUTSIDE RECORDS SUMMARY | 2021-12-10 15:18 | XMS_ITS | Encounter Summary ---
:1945 Author Organization [facility] Address [address] [place] [address] Care Team Providers Name Role Phone Corrine Vazquez MD Primary Care Provider Reason for Visit Reason Onset Date Comments Lab questions 08/31/2019 Encounter Details Date Type Department Care Team Description 08/31/2019 Telephone [place] Corrine Vazquez MD Lab questions [address] [place], [place] [address] [place], [place] [phone] (Wo rk) Social History Tobacco Use Types [...] having next week. Please call Pt at [phone] to advise. documented in this encounter Plan of Treatment Not on filedocumented as of this encounter Goals Goal Patient Goal Associated Recent Patient-Stated? Author Type Problems Progress Routine Health General No change Peter Monzon (02/05/2021 Abbie Murray, 11:19 AM PAGINATOR) RN Note: Formatting of this note is differe nt from the original. Routine Health Management Care Team Patient Care Team: Corrine Vazquez MD as PCP - General ([facility]) Yossi Potts, RN as Registered Nurse (Diabetes Education) Abbie Ramesh RN as Marketing Operations Assistant Future Scheduled Appointments No future appointments. Health Maintenance Health Maintenance Topic Date Due Urine Protein Screening 05/31/2020 Lipid Panel 09/05/2020 Glaucoma Screening 67+ Yr 12/25/2020 Ophthalmology Exam 12/25/2020 [facility] [place] Wellness 01/12/2021 Hemoglobin A1C 01/24/2021 Diabetic Foot Exam 03/16/2021 Colorectal Cancer Screening: Colonoscop y 05/21/2021 Fall Risk Performed 06/05/2021 Mammogram 12/03/2021 COVID-[address] [facility] Pneumococcal Vaccine: <[address] [facility] Pneumococcal Vaccine: 65+ Years Com pleted HPV Vaccines Aged Out Notes: Due: Urine Protein screening Eye exam AWV A1C Lipid panel Diabetes Management General No change (02/05/2021 11:17 AM No Abbie Ramesh RN PAGINATOR) Note: Formatting of this note is differe [...] on filedocumented in this encounter Care Teams Diagram Clerk Relationship Specialty Start Date End Date Corrine Vazquez MD PCP - General Family Medicine 5/21/20 7/4/[address] [place] [address] documented as of this encounter
--- OUTSIDE RECORDS SUMMARY | 2021-12-10 15:18 | XMS_ITS | Encounter Summary ---
:1945 Author Organization [facility] Address [address] [place] [address] Care Team Providers Name Role Phone Corrine Vazquez MD Primary Care Provider Encounter Details Date Type Department Care Team Description 09/02/2019 Telephone [place] Endocrinology Bacilio Stewart MBBS [address] [place] [address] [place] [address] [phone] (Wo rk) Social History Tobacco Use Types [...] Peter Ramesh (02/05/2021 Abbie Murray, 11:19 AM HOSPITAL INSURANCE CLERK) RN Note: Formatting of this note is differe nt from the original. Routine Health Management Care Team Patient Care Team: Corrine Vazquez MD as PCP - General ([facility] Medicine) Yossi Potts RN as Registered Nurse (Diabetes Education) Abbie Ramesh RN as Aerial Planting And Cultivation Manager Future Scheduled Appointments No future appointments. [...] (02/05/2021 11:17 AM No Abbie Ramesh, RN HOSPITAL INSURANCE CLERK) Note: Formatting of this note is [...] filedocumented in this encounter Care Teams Paint Tinter Relationship Specialty Start Date End Date Corrine Vzaquez MD PCP - General Family Medicine 07/07/19 08/19/[address] [place] [address] documented as of this encounter
--- OUTSIDE RECORDS SUMMARY | 2021-12-10 15:18 | XMS_ITS | Encounter Summary ---
:1945 Author Organization [facility] Address [address] [place] [address] Care Team Providers Name Role Phone Corrine Vazquez MD Primary Care Provider Encounter Details Date Type Department Care Team Description 09/06/2019 Lab [place] Type 2 diabetes mellitus wit h other specified complication, with long-term current use of insulin (HCC); [address] Mixed hyperlipidemia; [place], [place] [address] Essential hypertension; [phone] Stage 3 chronic kidney disease (HCC) Social [...] Domitila, Management (02/05/2021 Abbie Murray, 11:19 AM WIRELESS CONSULTANT) RN Note: Formatting of this note is differe nt from the original. Routine Health Management Care Team Patient Care Team: Corrine Vazquez MD as PCP - General ([facility] Medicine) Yossi Potts, RN as Registered Nurse (Diabetes Education) Abbie Ramesh, RN as Supervisor [employer] Supply Future Scheduled Appointments No future appointments. Health [...] (02/05/2021 11:17 AM No Abbie Ramesh, RN WIRELESS CONSULTANT) Note: Formatting of this note is [...] P athologist Signature GFR 37 (A) 09/06/2019 [facility] 8:31 AM CDT [facility] 45 (A) 09/06/2019 [facility] Greenlandic GFR 8:31 AM CDT [facility] Comment: [...] SETHI LAB BLOOD ORDERABLES Performing Organization Address City/[facility]/ZIP Code Phon e Number [facility] [address] [place] [phone] (ABNORMAL) Liver panel (09/06/2019 8:08 AM CDT) Analysis Performed At Patho logist Time Signature Total Protein 7.6 6.3 - 8.2 09/06/2019 [facility] g/dL 3:02 PM [facility] Albumin, Serum 4.0 3.5 - 5.0 09/06/2019 [facility] g/dL 3:02 PM [facility] Total Bilirubin <0.7 0.1 - 1.0 09/06/2019 [facility] mg/dL 3:02 PM [facility] Bilirubin, <0.1 0.0 - 0.3 09/06/2019 [facility] Direct mg/dL 3:02 PM [facility] AST 28 8 - 43 U/L 09/06/2019 [facility] 3:02 PM [facility] Alkaline 99 38 - 128 09/06/2019 [facility] Phosphatase U/L 3:02 PM [facility] ALT (SGPT) 52 (H) 0 - 34 U/L 09/06/2019 [facility] 3:02 PM [facility] Specimen Anatomical Collection Method Collection Time Receive d Time (Source) Location / / Volume Laterality Blood 09/06/2019 8:08 AM 0 1:16 CDT PM CDT Bacilio Stewart [facility] LAB BLOOD ORDERABLES Performing Organization Address City/State/ZIP Code Phon e Number [facility] [address] [place] [phone] (ABNORMAL) Basic metabolic panel (09/06/2019 8:08 AM CDT) P athologist Signature Sodium 139 135 - 145 09/06/2019 [facility] mmol/L 8:31 AM CDT [place] Potassium 4.0 3.5 - 5.1 09/06/2019 [facility] mmol/L 8:31 AM CDT [place] Comment: . Chloride 103 98 - 107 mmol/L 09/06/2019 8:31 AM CDT [facility] Comment: . CO2 28 22 - 29 mmol/L 09/06/2019 8:31 AM CDT [facility] Comment: . Creatinine 1.4 (H) 0.4 - 1.2 mg/dL 09/06/2019 8:31 AM CDT [facility] Comment: . BUN 28 (H) 5 - 25 mg/dL 09/06/2019 8:31 AM CDT [facility] Comment: . Glucose 157 (H) 70 - 100 mg/dL 09/06/2019 8:31 AM CDT [facility] Calcium, Total,S 9.7 8.4 - 10.2 mg/dL 09/06/2019 8:31 AM CDT [facility] Comment: . Specimen Anatomical Collection Method Collection Time Receive d Time (Source) Location / / Volume Laterality Blood 09/06/2019 8:08 AM 0 8:20 CDT AM CDT Bacilio [facility] LAB BLOOD ORDERABLES Performing Organization Address City/State/ZIP Code Phon e Number [facility] [address] [place] [address] (ABNORMAL) Hemoglobin A1c (09/06/2019 8:08 AM CDT) [...] [facility] [address] [place] [address] (ABNORMAL) Lipid panel (09/06/2019 8:08 AM CDT) athologist Signature Cholesterol 183 0 - 199 09/06/2019 [facility] mg/dL 3:02 PM T [facility] Comment: Recommended by National Cholesterol Education Program (ATP III) -------- Cholesterol Ranges -------- <200 ? Desirable 200-239 ? Borderline high >=240 ? High Triglycerides 234 (A) 0 - 149 mg/dL 09/06/2019 3:02 PM CDT [facility] Comment: -------- TRIG Ranges -------- <150 ?Normal 150-199 ? Borderline high 200-499 ? High >=500 ? Very high HDL 37 (A) 40 - 60 mg/dL 09/06/2019 3:02 PM T [facility] Comment: -------- HDL Ranges -------- <40 ?Low 40-59 ?Normal >=60 ? Optimal LDL Calculated 99 0 - 99 mg/dL 09/06/2019 3:02 PM CDT [facility] Comment: -------- LDL Ranges -------- <100 ? Optimal 100-129 ?Near optimal/above op timal 130-159 ?Borderline high 160-189 ?High >=190 ?Very high Fasting? Yes 09/06/2019 8:20 AM T [facility] Specimen Anatomical Collection Method Collection Time Receive d Time (Source) Location / / Volume Laterality Blood 09/06/2019 8:08 AM 0 1:16 CDT PM CDT Bacilio [facility] LAB BLOOD ORDERABLES Performing Organization Address City/State/ZIP Code Phon e Number [facility] [address] [place] [address] documented in this encounter Visit Diagnoses Diagnosis Type 2 diabetes mellitus with other spec ified complication, with long-term current use of insulin (HCC) Mixed hyperlipidemia Essential hypertension Unspecified essential hypertension Stage 3 chronic kidney disease (HCC) documented in this encounter Care Teams International Travel Consultant Relationship Specialty Start Date End Date Corrine Vazquez MD PCP - General Family Medicine 07/07/19 08/19/21 [address] [facility] [address] [place] [address] documented as of this encounter
--- OUTSIDE RECORDS SUMMARY | 2021-12-10 15:18 | XMS_ITS | Encounter Summary ---
:1945 Author Organization [facility] Address [address] [place] [address] Care Team Providers Name Role Phone Corrine Vazquez MD Primary Care Provider Reason for Visit Reason Comments Medicare Annual Wellness Visit Subsequent Encounter Details Date Type Department Care Team Description 01/13/2020 Clinical Support [place] Medicare annual wellness [address] visit, subsequent [place], [place] [address] Social History Tobacco Use [...] Comments Blood Pressure 132/80 01/13/2020 2:10 PM RETAIL PRESENTATION SPECIALIST Pulse 86 01/13/2020 2:10 PM RETAIL PRESENTATION SPECIALIST Temperature 36.3 ??C (97.4 ??F) 01/13/2020 2:10 PM RETAIL PRESENTATION SPECIALIST Respiratory Rate 14 01/13/2020 2:10 PM RETAIL PRESENTATION SPECIALIST Oxygen Saturation 96% 01/13/2020 2:10 PM RETAIL PRESENTATION SPECIALIST Inhaled Oxygen Concentration - - Weight 81.6 kg (180 lb) 01/13/2020 2:10 PM RETAIL PRESENTATION SPECIALIST Height 160.3 cm (5' 3.11) 01/13/2020 2:10 PM RETAIL PRESENTATION SPECIALIST Body Mass Index 31.77 01/13/2020 2:10 PM RETAIL PRESENTATION SPECIALIST documented in this encounter Progress Notes Lana Knight LPN - 01/13/2020 2:40 PM CST Annual Wellness Visit CARE TEAM / RESOURCES: Patient Care Team: Corrine Vazquez MD as PCP - General (Family Medicine) JOSE DE JESUS Austin as Diabetes Management (Endocrinology) Yossi Potts RN as Registered Nurse (Diabetes Education) Abbie Ramesh RN as Pie Chef Eye Care: [facility] Dental Care: Dr. Caal [place] Pharmacy: [facility] [address] [address] Other: Visit Vitals BP 132/80 (BP Location: [...] PO) Take by mouth Contains Zinc per Benefits Officer. ??? nitroglycerin (NITROSTAT) 0.4 MG SL tablet [...] disease ??? Gout ??? Hyperlipidemia ??? Other [facility] (current) drug therapy ??? Paresthesia of skin [...] More than three times a week Attends hinduism service: More than 4 times per year [...] done: The patient had this completed in [place] two months ago. Will request records. Osteoporosis [...] transfusion before 1991. ?? Those born between [id number]. Glaucoma: Medicare Part B (Medical Insurance) covers [...] of one pack a dayfor 30 years). [place] PRESENTATION SPECIALIST documented in this encounter Plan of Treatment Not on filedocumented as of this encounter Goals Goal Patient Goal Associated Recent Patient-Stated? Author Type Problems Progress Routine Health General No change No Domitila, Management (02/05/2021 Abbie Murray, 11:19 AM RETAIL PRESENTATION SPECIALIST) RN Note: Formatting of this note is differe nt from the original. Routine Health Management Care Team Patient Care Team: Corrine Vazquez MD as PCP - [facility] Yossi Potts RN as Registered Nurse (Diabetes Education) Abbie Ramesh, RN as Pie Chef Future Scheduled Appointments No future appointments. Health Maintenance Health Maintenance Topic Date Due Urine Protein Screening 05/31/2020 Lipid Panel 09/05/2020 Glaucoma Screening 67+ Yr 12/25/2020 Ophthalmology Exam 12/25/2020 [facility] Annual Wellness 01/12/2021 Hemoglobin A1C 01/24/2021 [...] 11:17 AM No Abbie Ramesh, RN RETAIL PRESENTATION SPECIALIST) Note: Formatting of this note is [...] nt documented in this encounter Care Teams Property Technician Relationship Specialty Start Date End Date Corrine Vazquez MD PCP - General Family Medicine 07/07/19 08/19/[address] [place] [address] documented as of this encounter
--- OUTSIDE RECORDS SUMMARY | 2021-12-10 15:18 | XMS_ITS | Encounter Summary ---
:1945 Author Organization [facility] Address [address] [place] [address] Care Team Providers Name Role Phone Corrine Vazquez MD Primary Care Provider Reason for Visit Reason Onset Date Comments Refills 12/13/2019 Lancets Encounter Details Date Type Department Care Team Description 12/13/2019 Telephone [place] Corrine Vazquez, Refills (Lancets) [address] [place], [place] [address] [phone] [place] [address] (Wo rk) Social History Tobacco Use Types [...] Peter Monzon (02/05/2021 Abbie Murray, 11:19 AM GEOSCIENCE LABORATORY TECHNICIAN) RN Note: Formatting of this note is differe nt from the original. Routine Health Management Care Team Patient Care Team: Corrine Vazquez MD as PCP - General ([facility] Medicine) Yossi Potts RN as Registered Nurse (Diabetes Education) Abbie Ramesh RN as Deputy Commonwealth'S Attorney Future Scheduled Appointments No future appointments. Health Maintenance Health Maintenance Topic Date Due Urine Protein Screening 05/31/2020 Lipid Panel 09/05/2020 Glaucoma Screening 67+ Yr 12/25/2020 Ophthalmology Exam 12/25/2020 [facility] [facility] [place]ness 01/12/2021 Hemoglobin A1C 01/24/2021 Diabetic Foot Exam 03/16/2021 Colorectal Cancer Screening: Colonoscop y 05/21/2021 Fall Risk Performed 06/05/2021 Mammogram 12/03/2021 COVID-19 Vaccine Completed [facility] [place] Pneumococcal Vaccine: <64 Completed [facility] [place] Pneumococcal Vaccine: 65+ Years Com pleted HPV Vaccines Aged Out Notes: Due: Urine Protein screening Eye exam AWV A1C Lipid panel Diabetes Management General No change (02/05/2021 11:17 AM Abbie Monzon, RN GEOSCIENCE LABORATORY TECHNICIAN) Note: Formatting of this note [...] on filedocumented in this encounter Care Teams Survey Project Manager Relationship Specialty Start Date End Date Corrine Vazquez MD PCP - General Family Medicine 07/07/19 08/19/[address] [place] [address] documented as of this encounter
--- OUTSIDE RECORDS SUMMARY | 2021-12-10 15:18 | XMS_ITS | Encounter Summary ---
:1945 Author Organization [facility] Address [address] [place] [address] Care Team Providers Name Role Phone Corrine Vazquez MD Primary Care Provider Reason for Visit Consultation (Routine) - Closed Specialty Diagnoses / Procedures Referred By Contact Refer red To Contact Diagnoses Medicare annual wellness visit, initial Corrine Vazquez MD Care Coordination [address] [place], [place] [phone] Referral ID Status Reason Start Date Expiration Date Visits V isits Requested Authorized [id number] Closed Specialty 12/23/2018 99 99 Services Required Encounter Details Date Type Department Care Team Description 11/10/2019 Patient Outreach Care Coordination Angie Bynum, Counseling and coordination of care (Primary Dx); [address] [place] [address] RN Type 2 diabetes mellitus with other spec ified complication, with long-term current use of insulin (HCC); [address] Mixed hyperlipidemia; [phone] Stage 3 chronic kidney disease, unspecif ied whether stage 3a or 3b CKD (HCC) [place] [address] Social History Tobacco Use Types Packs/Day Years [...] No 12/23/2018 organizations such as hoahaoism groups, [employer] or athletic groups, or school groups? [...] has an apt for a Mammogram in [place] next month. ?? Pt plans to have [...] 12/18/2019 ??? Fall Risk Performed 12/24/2019 ??? [facility] [place] Wellness 12/24/2019 ??? Urine Protein Screening [...] Peter Ramesh (02/05/2021 Abbie Murray, 11:19 AM CONTINUOUS CHURN BUTTERMAKER) RN Note: Formatting of this note is differe nt from the original. Routine Health Management Care Team Patient Care Team: Corrine Vazquez MD as PCP - General ([facility] Medicine) Yossi Potts, RN as Registered Nurse (Diabetes Education) Abbie Ramesh, ERA as Director Global Development Future Scheduled Appointments No future appointments. Health [...] change (02/05/2021 11:17 AM Abbie Monzon, RN CONTINUOUS CHURN BUTTERMAKER) Note: Formatting of this note is differe [...] (HCC) documented in this encounter Care Teams Small Wind Energy Installer Relationship Specialty Start Date End Date Corrine Vazquez MD PCP - General Family Medicine 07/07/19 08/19/[address] [place] [address] documented as of this encounter
--- OUTSIDE RECORDS SUMMARY | 2021-12-10 15:18 | XMS_ITS | Encounter Summary ---
:[address] [facility] Address [address] [place] [address] Care Team Providers Name Role Phone Corrine Vazquez MD Primary Care Provider Reason for Visit Reason Onset Date Comments Blood sugar numbers 11/07/2019 Encounter Details Date Type Department Care Team Description 11/07/2019 Telephone [place] Corrine Vazquez, Blood sugar numbers [address] [place], [place] [address] [phone] [place] [address] ([facility]) Social History Tobacco Use Types [...] in to see her heart doctor at [facility] Dr. Currie about a week or [...] 11/05 Even 138 11/04 AM 95 11/04 [id number] 11/04 HS 185 11/03 AM 104 11/03 Noon 103 11/03 Ofelia 120 9/18 HS 187 11/02 AM 91 9 HS 133 11/01 AM 92 11/01 Noon 181 11/01 HS 295 Telephone Encounter - Luciana Albarado - 11/07/2019 8:26 AM CDT Pt called per Dr. Vazquez request to give her blood sugar numbers. Please call Pt at [phone] to advise. documented in this encounter Plan of Treatment Not on filedocumented as of this encounter Goals Goal Patient Goal Associated Recent Patient-Stated? Author Type Problems Progress Routine Health General No change Peter Monzon (02/05/2021 Abbie Murray, 11:19 AM MEDICAL FIELD REPRESENTATIVE) RN Note: Formatting of this note is differe nt from the original. Routine Health Management Care Team Patient Care Team: Corrine Vazquez MD as [facility]CP - [facility] Yossi Potts RN as Registered Nurse (Diabetes Education) Abbie Ramesh RN as Palliative Care Nurse Future Scheduled Appointments No future appointments. [...] change (02/05/2021 11:17 AM Abbie Monzon, RN MEDICAL FIELD REPRESENTATIVE) Note: Formatting of this note is [...] on filedocumented in this encounter Care Teams Environmental Geologist Relationship Specialty Start Date End Date Corrine Vazquez MD PCP - General Family Medicine 07/07/19 08/19/[address] [place] [address] documented as of this encounter
--- OUTSIDE RECORDS SUMMARY | 2021-12-10 15:18 | XMS_ITS | Encounter Summary ---
:1945 Author Organization [facility] Address [address] [place] [address] Care Team Providers Name Role Phone Corrine Vazquez MD Primary Care Provider Reason for Visit Reason Onset Date Comments orders 01/20/2020 Encounter Details Date Type Department Care Team Description 01/20/2020 Telephone [place] Corrine Vazquez MD orders [address] [place], [place] [address] [place], [place] [phone] (Wo rk) Social History Tobacco Use Types [...] have them fax the orders to us. AL PATIENT COORDINATOR Telephone Encounter - Phoebe Donohue - 01/20/2020 8:58 AM CST Patient is supposed to have lab work per her embedded software manager. She is wondering if outside order has been received. Please call her at [phone]. AL PATIENT COORDINATOR documented in this encounter Plan of Treatment Not on filedocumented as of this encounter Goals Goal Patient Goal Associated Recent Patient-Stated? Author Type Problems Progress Routine Health General No change No Peter Rmaesh (02/05/2021 Abbie Murray 11:19 AM DENTAL PATIENT COORDINATOR) RN Note: Formatting of this note is differe nt from the original. Routine Health Management Care Team Patient Care Team: Corrine Vazquez MD as PCP - [facility] Yossi Potts RN as Registered Nurse (Diabetes Education) Abbie Ramesh RN as Seal Mixing Operator Future Scheduled Appointments No future appointments. Health Maintenance Health Maintenance Topic Date Due Urine Protein Screening 05/31/2020 Lipid Panel 09/05/2020 Glaucoma Screening 67+ Yr 12/25/2020 Ophthalmology Exam 12/25/2020 [facility] [place] 01/12/2021 Hemoglobin A1C 01/24/2021 Diabetic Foot Exam 03/16/2021 Colorectal Cancer Screening: Colonoscop y 05/21/2021 Fall Risk Performed 06/05/2021 Mammogram 12/03/2021 COVID-19 Vaccine Completed [facility] Pneumococcal Vaccine: <64 Completed [facility] Pneumococcal Vaccine: 65+ Years Com pleted HPV Vaccines Aged Out Notes: Due: Urine Protein screening Eye exam AWV A1C Lipid panel Diabetes Management General No change (02/05/2021 11:17 AM No Abbie Ramesh, RN DENTAL PATIENT COORDINATOR) Note: Formatting of this note is differe nt from the original. Diabetes Management Type 2 diabetes mellitus with other spec ified complication (HCC) Managed by (PCP or Endocrinology) Dr. Vazquez (PCP ) Home Glucose tracking 1-3 times per day Diabetic medications insulin glargine (Casi CADLWELL) 100 UNIT/ML injection 22 units in AM [...] on filedocumented in this encounter Care Teams Slate Cutter Operator Relationship Specialty Start Date End Date Corrine Vazquez MD PCP - General Family Medicine 07/07/19 08/19/[address] [place] [address] documented as of this encounter
--- OUTSIDE RECORDS SUMMARY | 2021-12-10 15:18 | XMS_ITS | Encounter Summary ---
:1945 Author Organization [facility] Address [address] [place] [address] Care Team Providers Name Role Phone Corrine Vazquez MD Primary Care Provider Encounter Details Date Type Department Care Team Description 11/28/2019 Orders Only [place] Corrine Vazquez MD [address] [place], [place] [address] [place], [place] [phone] (Wo rk) Social History Tobacco Use Types [...] Domitila, Management (02/05/2021 Abbie Murray, 11:19 AM RETORT KILN BURNER) RN Note: Formatting of this note is differe nt from the original. Routine Health Management Care Team Patient Care Team: Corrine Vazquez MD as PCP - General ([facility] Medicine) Yossi Potts, RN as Registered Nurse (Diabetes Education) Abbie Ramesh, ERA as Customizer Future Scheduled Appointments No future appointments. Health [...] [place] Pneumococcal Vaccine: <64 Completed [facility] [place] Pneumococcal Vaccine: 65+ Years Com pleted HPV Vaccines Aged Out Notes: Due: Urine Protein screening Eye exam AWV A1C Lipid panel Diabetes Management General No change (02/05/2021 11:17 AM No Abbie Ramesh, RN RETORT KILN BURNER) Note: Formatting of this note is differe [...] on filedocumented in this encounter Care Teams Financial Market Dealer Relationship Specialty Start Date End Date Corrine Vazquez MD PCP - General Family Medicine 07/07/19 08/19/[address] [place] [address] documented as of this encounter
--- OUTSIDE RECORDS SUMMARY | 2021-12-10 15:18 | XMS_ITS | Encounter Summary ---
:1945 Author Organization [facility] Address [address] [place] [address] Care Team Providers Name Role Phone Corrine Vazquez MD Primary Care Provider Reason for Visit Reason Onset Date Comments Med Refill 09/23/2019 Encounter Details Date Type Department Care Team Description 09/23/2019 Refill [place] Corrine Vazquez, Hypothyroidism, [address] [facility] [place] unspecified type [place], [place] [address] [place] [address] [place] [address] Social History Tobacco Use Types Packs/Day Years [...] Peter Monzon (02/05/2021 Abbie Murray, 11:19 AM DETECTOR CAR OPERATOR) RN Note: Formatting of this note is differe nt from the original. Routine Health Management Care Team Patient Care Team: Corrine Vazquez MD as PCP - General [facility] Yossi Potts RN as Registered Nurse (Diabetes Education) Abbie Ramesh RN as Eight Arm Operator Future Scheduled Appointments No future appointments. Health Maintenance Health Maintenance Topic Date Due Urine Protein Screening 05/31/2020 Lipid Panel 09/05/2020 Glaucoma Screening 67+ Yr 12/25/2020 Ophthalmology Exam 12/25/2020 [facility] Annual Wellness 01/12/2021 Hemoglobin A1C 01/24/2021 Diabetic [...] change (02/05/2021 11:17 AM Abbie Monzon, RN DETECTOR CAR OPERATOR) Note: Formatting of this note is [...] type documented in this encounter Care Teams Rehabilitation Medicine Physician Relationship Specialty Start Date End Date Corrine Vazquez MD PCP - General Family Medicine 07/07/19 08/19/[address] [place] [address] documented as of this encounter
--- OUTSIDE RECORDS SUMMARY | 2021-12-10 15:18 | XMS_ITS | Encounter Summary ---
:1945 Author Organization [facility] Address [address] [place] [address] Care Team Providers Name Role Phone Corrine Vazquez MD Primary Care Provider Reason for Visit Consultation (Routine) - Closed Specialty Diagnoses / Procedures Referred By Contact Refer red To Contact Diagnoses Medicare annual wellness visit, initial Corrine Vazquez MD Care Coordination [address] [place], [place] [phone] Referral ID Status Reason Start Date Expiration Date Visits V isits Requested Authorized [id number] Closed Specialty 12/23/2018 99 99 Services Required Encounter Details Date Type Department Care Team Description 12/30/2019 Patient Outreach SE Care Coordination Abbie Ramesh Counseling and coordination of care (Primary Dx); [address] [facility] Terri RN Type 2 diabetes mellitus with other spec ified complication, with long-term current use of insulin (HCC); [place] [address] [address] Mixed hyperlipidemia; [phone] [facility] Obesity (BMI 30.0-34.9) [place] [address] Social History Tobacco Use Types [...] 12/23/2018 organizations such as sikh groups, unions, [employer] or athletic groups, or school groups? How [...] AM readings running 83-122. - Discussed with network infrastructure architect in regards to starting [email or web address]. She is [...] Nurse (Diabetes Education) Abbie Ramesh RN as Prop Cutter Future Scheduled Appointments No future appointments. [...] Notes: 1 Progress evaluated against: Health Maintenance S COORDINATOR Corrine Vazquez MD - 12/30/2019 8:40 AM CST Heena jaymie S COORDINATOR documented in this encounter Plan of Treatment Not on filedocumented as of this encounter Goals Goal Patient Goal Associated Recent Patient-Stated? Author Type Problems Progress Routine Health General No change No Domitila, Management (02/05/2021 Abbie Murray, 11:19 AM HEDIS COORDINATOR) RN Note: Formatting of this note is differe nt from the original. Routine Health Management Care Team Patient Care Team: Corrine Vazquez MD as PCP - General ([facility] Medicine) Yossi Potts RN as Registered Nurse (Diabetes Education) Abbie Ramesh RN as Prop Cutter Future Scheduled Appointments No future appointments. Health Maintenance Health Maintenance Topic Date Due Urine Protein Screening 05/31/2020 Lipid Panel 09/05/2020 Glaucoma Screening 67+ Yr 12/25/2020 Ophthalmology Exam 12/25/2020 [facility] [place] Annual Wellness 01/12/2021 Hemoglobin A1C [...] change (02/05/2021 11:17 AM Abbie Monzon, RN HEDIS COORDINATOR) Note: Formatting of this note is [...] 30.0-34.9) documented in this encounter Care Teams Knowledge Management Consultant Relationship Specialty Start Date End Date Corrine Vazquez MD PCP - General Family Medicine 07/07/19 08/19/[address] [place] [address] documented as of this encounter
--- OUTSIDE RECORDS SUMMARY | 2021-12-10 15:18 | XMS_ITS | Encounter Summary ---
:1945 Author Organization [facility] Address [address] [place] [address] Care Team Providers Name Role Phone Corrine Vazquez MD Primary Care Provider Reason for Visit Reason Comments Diabetes Encounter Details Date Type Department Care Team Description 10/28/2019 Office Visit [place] Corrine Vazquez Type 2 diabetes mellitus wit h other specified complication, with long-term current use of insulin (HCC) (Primary Dx); [address] [place] Mixed hyperlipidemia; [place] [address] Anemia, unspecified type; [phone] [place] Type 2 diabetes mellitus with other spec ified complication, without long-term current use of insulin (HCC); [place] Hypothyroid ism, unspecified type [phone] Social History Tobacco Use Types Packs/Day Years [...] our 74-year-old individual who has been seeing [facility] endocrinology department we are closer for [...] 30 days this medications prescribed by her lofter Xanax 0.5 mg tablet she takes just a small amount couple times a month Calcium and vitamin D supplements Ferrous sulfate 325 once daily Glipizide extended release 10 mg 1 twice daily Basil Angelic insulin 22 units daily Arava 20 mg tablet daily prescribed by her lofter Levothyroxine 75 mcg daily Crestor 5 mg [...] chew, or split. - glucose blood (Accu-Chek Laison Plus) test strip; USE TO TEST BLOOD [...] Domitila, Management (02/05/2021 Abbie Murray, 11:19 AM JIGSAWYER) RN Note: Formatting of this note is differe nt from the original. Routine Health Management Care Team Patient Care Team: Corrine Vazquez MD as PCP - General ([facility]) Yossi Potts, RN as Registered Nurse (Diabetes Education) Abbie Ramesh RN as Threader Operator Future Scheduled Appointments No future appointments. [...] (02/05/2021 11:17 AM No Abbie Ramesh RN JIGSAWYER) Note: Formatting of this note is differe [...] (ABNORMAL) Basic metabolic panel (03/16/2020 10:17 AM [facility]) Analysis Performed At Patho logist Time Signature Sodium 138 135 - 145 03/16/2020 [facility] mEq/L 6:25 PM [facility] Potassium 4.1 3.5 - 5.1 03/16/2020 [facility] mEq/L 6:25 PM [facility] Chloride 104 98 - 107 03/16/2020 [facility] mEq/L 6:25 PM [facility] CO2 26 22 - 29 03/16/2020 [facility] mmol/L 6:25 PM [facility] Creatinine 1.2 0.4 - 1.2 03/16/2020 [facility] mg/dL 6:25 PM [facility] BUN 27 (H) 5 - 25 03/16/2020 [facility] mg/dL 6:25 PM [facility] Glucose 154 (H) 70 - 100 03/16/2020 [facility] mg/dL 6:25 PM [facility] Calcium, 10.1 8.4 - 10.2 03/16/2020 [facility] Total,S mg/dL 6:25 PM [facility] Fasting? No 03/16/2020 [facility] 10:21 AM [facility] Specimen Anatomical Collection Method Collection Time Receive d Time (Source) Location / / Volume Laterality Blood 03/16/2020 10:17 03/16/2020 5:59 AM [facility] PM [place] D. [place] Vazquez MD LAB BLOOD ORDERABLES Performing Organization Address City/State/ZIP Code Phon e Number [facility] [address] [place] [address] [facility] [address] [place] [id number] LABORATORY (ABNORMAL) Hemoglobin A1c (03/16/2020 10:17 AM [facility]) Analysis Performed At Patho logist Time Signature Hemoglobin A1C 8.5 (H) 4.0 - 5.6 03/16/2020 [facility] % A1C 6:26 PM [facility] Comment: Reference Range 4.0-5.6% [...] Laterality Blood 03/16/2020 10:17 03/16/2020 5:59 AM JIGSAWYER PM JIGSAWYER Authorizing Provider Result Herbert Vazquez MD LAB BLOOD ORDERABLES Performing Organization Address City/State/ZIP Code Phon e Number [facility] [address] [place] [address] documented in this encounter Visit Diagnoses Diagnosis Type 2 diabetes mellitus with other spec ified complication, with long-term current use of insulin (HCC) - Primary Mixed hyperlipidemia Anemia, unspecified type Type 2 diabetes mellitus with other spec ified complication, without long-term current use of insulin (HCC) Hypothyroidism, unspecified type documented in this encounter Care Teams Longwall Headgate Operator Relationship Specialty Start Date End Date Corrine Vazquez MD PCP - General Family Medicine 07/07/19 08/19/21 [address] [place] [address] documented as of this encounter
--- OUTSIDE RECORDS SUMMARY | 2021-12-10 15:18 | XMS_ITS | Encounter Summary ---
:[address] [facility] Address [address] [place] [address] Care Team Providers Name Role Phone Corrine Vazquez MD Primary Care Provider Reason for Visit Consultation (Routine) - Closed Specialty Diagnoses / Procedures Referred By Contact Refer red To Contact Diagnoses Medicare annual wellness visit, initial Corrine Vazquez MD Care Coordination [address] [facility] [address] [phone] Referral ID Status Reason Start Date Expiration Date Visits V isits Requested Authorized [id number] Closed Specialty 12/23/2018 99 99 Services Required Encounter Details Date Type Department Care Team Description 11/08/2019 Patient Outreach SE Care Coordination Abbie Ramesh, [address] [place] [address] [place] [address] [place] [phone] Social History Tobacco Use Types Packs/Day Years [...] Ramesh Management (02/05/2021 Abbie Murray, 11:19 AM AEROPHYSICS ENGINEER) RN Note: Formatting of this note is differe nt from the original. Routine Health Management Care Team Patient Care Team: Corrine Vazquez MD as PCP - General ([facility] Medicine) Yossi Potts, RN as Registered Nurse (Diabetes Education) Abbie Ramesh RN as Pnp Future Scheduled Appointments No future appointments. Health Maintenance Health Maintenance Topic Date Due Urine Protein Screening 05/31/2020 Lipid Panel 09/05/2020 Glaucoma Screening 67+ Yr 12/25/2020 Ophthalmology Exam 12/25/2020 [facility] Annual Wellness 01/12/2021 Hemoglobin A1C 01/24/2021 Diabetic Foot Exam 03/16/2021 Colorectal Cancer Screening: Colonoscop y 05/21/2021 Fall Risk Performed 06/05/2021 Mammogram 12/03/2021 COVID-19 Vaccine Completed [facility] Pneumococcal Vaccine: <64 Completed [facility] Pneumococcal Vaccine: 65+ Years Com pleted HPV Vaccines Aged Out Notes: Due: Urine Protein screening Eye exam AWV A1C Lipid panel Diabetes Management General No change (02/05/2021 11:17 AM Abbie Monzon, RN AEROPHYSICS ENGINEER) Note: Formatting of this note is [...] on filedocumented in this encounter Care Teams Stable Hand Relationship Specialty Start Date End Date Corrine Vazquez MD PCP - General Family Medicine 07/07/19 08/19/[address] [place] [address] documented as of this encounter
--- OUTSIDE RECORDS SUMMARY | 2021-12-10 15:18 | XMS_ITS | Encounter Summary ---
:1945 Author Organization [facility] Address [address] [place] [address] Care Team Providers Name Role Phone Corrine Vazquez MD Primary Care Provider Reason for Visit Reason Comments Diabetes Mellitus Encounter Details Date Type Department Care Team Description 09/12/2019 [facility] SE Endocrinology Bacilio Stewart, Type 2 diabetes mellitus wit h other specified complication, with long-term current use of insulin (HCC) (Primary Dx); 210 [facility] MBBS Stage 3 chronic kidney disease (HCC); [place] [address] [address] [facility] Mixed hyperlipidemia; [phone] [place], [place] Abnormal liver function test; [address] Essential hypertension Social History Tobacco Use Types [...] increased from 22 units on 09/07/19. Our special education paraeducator, Denny Potts, has been in touch with [...] Last eye exam showed no retinopathy in [place]. Dorsal aspectof toes hurts sometimes. Denies any [...] More than three times a week Attends worship service: More than 4 times per year [...] was 33 minutes. Bacilio Stewart MD Staff Sod Farmer documented in this encounter Plan of Treatment Not on filedocumented as of this encounter Goals Goal Patient Goal Associated Recent Patient-Stated? Author Type Problems Progress Routine Health General No change No Domitila, Management (02/05/2021 Abbie Murray, 11:19 AM BOTANY PROFESSOR) RN Note: Formatting of this note is differe nt from the original. Routine Health Management Care Team Patient Care Team: Corrine Vazquez MD as PCP - General ([facility]) Yossi Potts, RN as Registered Nurse (Diabetes Education) Abbie Ramesh RN as Wire Strander Future Scheduled Appointments No future appointments. Health [...] (02/05/2021 11:17 AM No Abbie Ramesh RN BOTANY PROFESSOR) Note: Formatting of this note is [...] (ABNORMAL) CBC ([facility]) (03/16/2020 10:17 AM BOTANY PROFESSOR) P athologist Signature WBC 7.1 3.5 - 10.5 03/16/2020 [facility] K/uL 10:23 AM BOTANY PROFESSOR [place] RBC 3.91 3.90 - 5.00 03/16/2020 [facility] M/uL 10:23 AM BOTANY PROFESSOR [place] Hemoglobin 11.5 (L) 12.0 - 15.5 03/16/2020 [facility] g/dL 10:23 AM BOTANY PROFESSOR [place] Hematocrit 35.5 35.0 - 44.0 03/16/2020 [facility] % 10:23 AM BOTANY PROFESSOR [place] Platelets 199 150 - 450 03/16/2020 [facility] K/uL 10:23 AM BOTANY PROFESSOR [place] MCV 90.8 81.6 - 98.3 03/16/2020 [facility] fL 10:23 AM BOTANY PROFESSOR [place] MCH 29.4 26.0 - 32.0 03/16/2020 [facility] pg 10:23 AM BOTANY PROFESSOR [place] MCHC 32.4 32.0 - 36.0 03/16/2020 [facility] g/dL 10:23 AM BOTANY PROFESSOR [place] RDW 13.2 11.9 - 15.5 03/16/2020 [facility] % 10:23 AM BOTANY PROFESSOR [place] Specimen Anatomical Collection Method Collection Time Receive d Time (Source) Location / / Volume Laterality Blood 03/16/2020 10:17 03/16/2020 AM BOTANY PROFESSOR 10:21 AM BOTANY PROFESSOR Bacilio [facility] LAB BLOOD ORDERABLES Performing Organization Address City/State/ZIP Code Phon e Number [facility] [place] [address] [place] [address] Liver panel (03/16/2020 10:17 AM BOTANY PROFESSOR) P athologist Signature Total Protein 7.7 6.3 - 8.2 03/16/2020 [facility] g/dL 6:25 PM [facility] Albumin, Serum 4.2 3.5 - 5.0 03/16/2020 [facility] g/dL 6:25 PM [facility] Total Bilirubin <0.7 0.1 - 1.0 03/16/2020 [facility] mg/dL 6:25 PM [facility] Bilirubin, <0.1 0.0 - 0.3 03/16/2020 [facility] Direct mg/dL 6:25 PM [facility] PROFESSOR [facility] AST 27 8 - 43 U/L 03/16/2020 [facility] 6:25 PM [facility] Alkaline 66 38 - 128 03/16/2020 [place] Phosphatase U/L 6:25 PM [facility] ALT (SGPT) 21 0 - 34 U/L 03/16/2020 [place] 6:25 PM [facility] Specimen Anatomical Collection Method Collection Time Receive d Time (Source) Location / / Volume Laterality Blood 03/16/2020 10:17 03/16/2020 5:59 AM BOTANY PROFESSOR PM BOTANY PROFESSOR Bacilio DELA [facility] LAB BLOOD ORDERABLES Performing Organization Address City/State/ZIP Code Phon e Number [facility] [address] [place] [address] documented in this encounter Visit Diagnoses Diagnosis Type 2 diabetes mellitus with other spec ified complication, with long-term current use of insulin (HCC) - Primary Stage 3 chronic kidney disease (HCC) Mixed hyperlipidemia Abnormal liver function test Nonspecific abnormal results of liver fu nction study Essential hypertension Unspecified essential hypertension documented in this encounter Care Teams Wood Milling Machine Hand Relationship Specialty Start Date End Date Corrine Vazquez MD PCP - General Family Medicine 07/07/19 08/19/[address] [place] [address] documented as of this encounter
--- OUTSIDE RECORDS SUMMARY | 2021-12-10 15:18 | XMS_ITS | Encounter Summary ---
:1945 Author Organization [facility] Address [address] [place] [address] Care Team Providers Name Role Phone Corrine Vazquez MD Primary Care Provider Encounter Details Date Type Department Care Team Description 09/06/2019 Orders Only [place] Corrine Vazquez MD [address] [place], [place] [address] [place], [place] [phone] (Wo rk) Social History Tobacco Use Types [...] Domitila, Management (02/05/2021 Abbie Murray, 11:19 AM FIELD TECHNICAL SPECIALIST) RN Note: Formatting of this note is differe nt from the original. Routine Health Management Care Team Patient Care Team: Corrine Vazquez MD as PCP - General ([facility] Medicine) Yossi Potts, RN as Registered Nurse (Diabetes Education) Abbie Ramesh, ERA as Inspector Assembly Future Scheduled Appointments No future appointments. Health [...] (02/05/2021 11:17 AM No Abbie Ramesh, RN FIELD TECHNICAL SPECIALIST) Note: Formatting of this note is [...] on filedocumented in this encounter Care Teams Fertilizing Machine Operator Relationship Specialty Start Date End Date Corrine Vazquez MD PCP - General Family Medicine 07/07/19 08/19/[address] [place] [address] documented as of this encounter
--- OUTSIDE RECORDS SUMMARY | 2021-12-10 15:18 | XMS_ITS | Encounter Summary ---
:1945 Author Organization [facility] Address [address] [place] [address] Care Team Providers Name Role Phone Corrine Vazquez MD Primary Care Provider Reason for Visit Reason Onset Date Comments Diabetes numbers low 11/01/2019 Encounter Details Date Type Department Care Team Description 11/01/2019 Telephone [place] Corrine Vazquez, Diabetes numbers low [address] [place], [place] [address] [phone] [place] [address] Social History Tobacco Use Types Packs/Day Years [...] lower than normal. Please call Pt at [phone] to advise. documented in this encounter Plan of Treatment Not on filedocumented as of this encounter Goals Goal Patient Goal Associated Recent Patient-Stated? Author Type Problems Progress Routine Health General No change Peter Monzon (02/05/2021 Abbie Murray, 11:19 AM MORNING SHOW PRODUCER) RN Note: Formatting of this note is differe nt from the original. Routine Health Management Care Team Patient Care Team: Corrine Vazquez MD as PCP - General ([facility] Medicine) Yossi N Delroy, RN as Registered Nurse (Diabetes Education) Abbie Ramesh RN as Game Technician Future Scheduled Appointments No future appointments. [...] (02/05/2021 11:17 AM No Abbie Ramesh, RN MORNING SHOW PRODUCER) Note: Formatting of this note is differe [...] on filedocumented in this encounter Care Teams Embedded Firmware Engineer Relationship Specialty Start Date End Date Corrine Vazquez MD PCP - General Family Medicine 07/07/19 08/19/[address] [place] [address] documented as of this encounter
--- OUTSIDE RECORDS SUMMARY | 2021-12-10 15:18 | XMS_ITS | Encounter Summary ---
:1945 Author Organization [facility] Address [address] [place] [address] Care Team Providers Name Role Phone Corrine Vazquez MD Primary Care Provider Reason for Visit Consultation (Routine) - Closed Specialty Diagnoses / Procedures Referred By Contact Refer red To Contact Diagnoses Medicare annual wellness visit, initial Corrine Vazquez MD Care Coordination [address] [place], [place] [phone] Referral ID Status Reason Start Date Expiration Date Visits V isits Requested Authorized [id number] Closed Specialty 12/23/2018 99 99 Services Required Encounter Details Date Type Department Care Team Description 10/06/2019 [facility] Outreach SE Care Coordination Abbie Ramesh Counseling and coordination of care (Primary Dx); 210 9[facility] Terri RN Type 2 diabetes mellitus with other spec ified complication, with long-term current use of insulin ([facility]); [place] [address] [address] Rheumatoid arthritis, involv ing unspecified site, unspecified rheumatoid factor presence ([facility]); [phone] [facility] Mixed hyperlipidemia; [place], [place] Rheumatoid art hritis, involving unspecified site, unspecified whether rheumatoid factor present ([facility]) [id number] Social History Tobacco Use Types Packs/Day [...] Risk Performed 12/24/[address] ??? [facility] Annual Wellness 12/24/2019 [...] 09/12/2019 10:00 AM JOSE DE JESUS [facility] Yossi Potts RN - 10/06/2019 3:00 PM CDT If we need to add another insulin. Yes. documented in this encounter Plan of Treatment Not on filedocumented as of this encounter Goals Goal Patient Goal Associated Recent Patient-Stated? Author Type Problems Progress Routine Health General No change No Domitila, Management (02/05/2021 Abbie Murray, 11:19 AM OVEN LOADER) RN Note: Formatting of this note is differe nt from the original. Routine Health Management Care Team Patient Care Team: Corrine Vazquez MD as PCP - General ([facility] Medicine) Yossi Potts, RN as Registered Nurse (Diabetes Education) Abbie Ramesh, ERA as Chain Saw Mechanic Future Scheduled Appointments No future appointments. Health [...] [place] Pneumococcal Vaccine: <[address] [facility] Pneumococcal Vaccine: 65+ Years Com pleted HPV Vaccines Aged Out Notes: Due: Urine Protein screening Eye exam AWV A1C Lipid panel Diabetes Management General No change (02/05/2021 11:17 AM No Abbie Ramesh, RN OVEN LOADER) Note: Formatting of this note is differe [...] hyperlipidemia documented in this encounter Care Teams Blow Mold Technician Relationship Specialty Start Date End Date Corrine Vazquez MD PCP - General Family Medicine 07/07/19 08/19/[address] [place] [address] documented as of this encounter
--- OUTSIDE RECORDS SUMMARY | 2021-12-10 15:18 | XMS_ITS | Encounter Summary ---
:1945 Author Organization [facility] Address [address] [place] [address] Care Team Providers Name Role Phone Corrine Vazquez MD Primary Care Provider Reason for Visit Reason Onset Date Comments Diabetes 09/06/2019 Encounter Details Date Type Department Care Team Description 09/06/2019 Telephone [place] Corrine Vazquez MD Diabetes [address] [place], [place] [address] [place], [place] [phone] (Wo rk) Social History Tobacco Use Types [...] you could call the Endo Clinic at [facility] and let them know that secondary to [...] over my diabetes instead of going to [place]. Also patient would like her lab results from today mailed to her when they return. documented in this encounter Plan of Treatment Not on filedocumented as of this encounter Goals Goal Patient Goal Associated Recent Patient-Stated? Author Type Problems Progress Routine Health General No change Peter Monzon (02/05/2021 Abbie Murray, 11:19 AM AUTO TESTER) RN Note: Formatting of this note is differe nt from the original. Routine Health Management Care Team Patient Care Team: Corrine Vazquez MD as PCP - General ([facility] Medicine) Yossi Potts RN as Registered Nurse (Diabetes Education) Abbie Ramesh RN as Manager Market Development Future Scheduled Appointments No future appointments. Health Maintenance Health Maintenance Topic Date Due Urine Protein Screening 05/31/2020 Lipid Panel 09/05/2020 Glaucoma Screening 67+ Yr 12/25/2020 Ophthalmology Exam 12/25/2020 [facility] Annual Wellness 01/12/2021 Hemoglobin A1C 01/24/2021 Diabetic Foot Exam 03/16/2021 Colorectal Cancer Screening: Colonoscop y 05/21/2021 Fall Risk Performed 06/05/2021 Mammogram 12/03/2021 COVID-19 Vaccine Completed [facility] Pneumococcal Vaccine: <64 Completed [facility] Pneumococcal Vaccine: 65+ Years Com pleted HPV Vaccines Aged Out Notes: Due: Urine Protein screening Eye exam AWV A1C Lipid panel Diabetes Management General No change (02/05/2021 11:17 AM Abbie Monzon, RN AUTO TESTER) Note: Formatting of this note is [...] on filedocumented in this encounter Care Teams Medical Photographer Relationship Specialty Start Date End Date Corrine Vazquez MD PCP - General Family Medicine 07/07/19 08/19/[address] [place] [address] documented as of this encounter
--- OUTSIDE RECORDS SUMMARY | 2021-12-10 15:18 | XMS_ITS | Encounter Summary ---
:[address] [facility] Address [address] [place] [address] Care Team Providers Name Role Phone Corrine Vazquez MD Primary Care Provider Reason for Visit Consultation (Routine) - Closed Specialty Diagnoses / Procedures Referred By Contact Refer red To Contact Diagnoses Medicare annual wellness visit, initial Corrine Vazquez MD Care Coordination [address] [place], [place] [phone] Referral ID Status Reason Start Date Expiration Date Visits V isits Requested Authorized [id number] Closed Specialty 12/23/2018 99 99 Services Required Encounter Details Date Type Department Care Team Description 11/25/2019 Patient Outreach SE Care Coordination Abbie Ramesh Counseling and coordination of care (Primary Dx); [address] [place] [address] Terri RN Type 2 diabetes mellitus with other spec ified complication, with long-term current use of insulin (HCC); [place] [address] [address] Weak urinary stream [phone] [place] [address] Social History Tobacco Use Types [...] 12/23/2018 organizations such as christianity groups, unions, [employer] or athletic groups, or school groups? How [...] Nurse (Diabetes Education) Abbie Ramesh RN as Compression Molding Machine Tender Future Scheduled Appointments No future appointments. Health Maintenance Health Maintenance Topic Date Due ??? Diabetic Foot Exam 07/16/2019 ??? Mammogram 11/26/2019 ??? Hemoglobin A1C 12/07/2019 ??? Glaucoma Screening 67+ Yr 12/18/2019 ??? Ophthalmology Exam 12/18/2019 ??? Fall Risk Performed 12/24/2019 ??? [facility] Annual Wellness 12/24/2019 ??? Urine Protein Screening [...] back. She had a visit with the fire patrol this morning. They discussed possibility ofstarting a new medication to protect her heart. She was given some information but would like to discuss with PCP. She plans to make an appointment to discuss prior to starting. Unable to see records from [facility] at the moment. documented in this encounter Plan of Treatment Not on filedocumented as of this encounter Goals Goal Patient Goal Associated Recent Patient-Stated? Author Type Problems Progress Routine Health General No change No Domitila Management (02/05/2021 Abbie Murray, 11:19 AM DIP UNIT OPERATOR) RN Note: Formatting of this note is differe nt from the original. Routine Health Management Care Team Patient Care Team: Corrine Vazquez MD as PCP - General ([facility]) Yossi Potts, RN as Registered Nurse (Diabetes Education) Abbie Ramesh RN as Compression Molding Machine Tender Future Scheduled Appointments No future appointments. Health Maintenance Health Maintenance Topic Date Due Urine Protein Screening 05/31/2020 Lipid Panel 09/05/2020 Glaucoma Screening 67+ Yr 12/25/2020 Ophthalmology Exam 12/25/2020 [facility] Annual Wellness 01/12/2021 Hemoglobin A1C 01/24/2021 Diabetic Foot Exam 03/16/2021 Colorectal Cancer Screening: Colonoscop y 05/21/2021 Fall Risk Performed 06/05/2021 Mammogram 12/03/2021 COVID-19 Vaccine Completed [facility] Pneumococcal Vaccine: <64 Completed [facility] Pneumococcal Vaccine: 65+ Years Com pleted HPV Vaccines Aged Out Notes: Due: Urine Protein screening Eye exam AWV A1C Lipid panel Diabetes Management General No change (02/05/2021 11:17 AM No Abbie Ramesh, RN DIP UNIT OPERATOR) Note: Formatting of this note is [...] stream documented in this encounter Care Teams Air/Ocean Export Clerk Relationship Specialty Start Date End Date Corrine Vazquez MD PCP - General Family Medicine 07/07/19 08/19/[address] [place] [address] documented as of this encounter
--- OUTSIDE RECORDS SUMMARY | 2021-12-10 15:18 | XMS_ITS | Encounter Summary ---
:1945 Author Organization [facility] Address [address] [place] [address] Care Team Providers Name Role Phone Corrine Vazquez MD Primary Care Provider Encounter Details Date Type Department Care Team Description 08/27/2019 Orders Only [place] Corrine Vazquez MD [address] [place], [place] [address] [place], [place] [phone] (Wo rk) Social History Tobacco Use Types [...] Domitila, Management (02/05/2021 Abbie Murray, 11:19 AM NEWSPAPER OR PERIODICAL EDITOR) RN Note: Formatting of this note is differe nt from the original. Routine Health Management Care Team Patient Care Team: Corrine Vazquez MD as PCP - General ([facility] Medicine) Yossi Potts, RN as Registered Nurse (Diabetes Education) Abbie Ramesh, ERA as Pre Sales Technical Engineer Future Scheduled Appointments No future appointments. [...] 11:17 AM No Abbie Ramesh, RN NEWSPAPER OR PERIODICAL EDITOR) Note: Formatting of this note is differe nt from the original. Diabetes Management Type 2 diabetes mellitus with other spec ified complication (HCC) Managed by (PCP or Endocrinology) Dr. Vazquez (PCP ) Home Glucose tracking 1-3 times per day Diabetic medications insulin glargine (B ROXANEN CALDWELL) 100 UNIT/ML injection 22 units in [...] on filedocumented in this encounter Care Teams Rotogravure Press Operator Relationship Specialty Start Date End Date Corrine Vazquez MD PCP - General Family Medicine 07/07/19 08/19/[address] [place] [address] documented as of this encounter
--- OUTSIDE RECORDS SUMMARY | 2021-12-10 15:18 | XMS_ITS | Encounter Summary ---
:1945 Author Organization [facility] Address [address] [place] [address] Care Team Providers Name Role Phone Corrine Vazquez MD Primary Care Provider Reason for Visit Reason Comments Pain in Side Encounter Details Date Type Department Care Team Description 01/13/2020 Office Visit [place] Corrine Vazquez Mixed hyperlipidemia (Primar y Dx); [address] [place] Left-sided chest wall pain; [place], [place] [address] Type 2 diab etes mellitus with other specified complication, with long-term current use of insulin ([facility]) [address] [place] [phone] [place] [address] Social History Tobacco Use Types Packs/Day Years [...] Comments Blood Pressure 132/80 01/13/2020 2:24 PM CHEMICAL TREATMENT OPERATOR Pulse 86 01/13/2020 2:24 PM CHEMICAL TREATMENT OPERATOR Temperature 36.3 ??C (97.4 ??F) 01/13/2020 2:24 PM CHEMICAL TREATMENT OPERATOR Respiratory Rate 14 01/13/2020 2:24 PM CHEMICAL TREATMENT OPERATOR Oxygen Saturation 96% 01/13/2020 2:24 PM CHEMICAL TREATMENT OPERATOR Inhaled Oxygen Concentration - - Weight 81.6 kg (180 lb) 01/13/2020 2:24 PM CHEMICAL TREATMENT OPERATOR Height 160.3 cm (5' 3.11) 01/13/2020 2:24 PM CHEMICAL TREATMENT OPERATOR Body Mass Index 31.77 01/13/2020 2:24 PM CHEMICAL TREATMENT OPERATOR documented in this encounter Progress Notes Corrine [...] bruise and a little bit of a [place] lump is most likely secondary to where [...] this area that would suggest possibly shingles ICAL TREATMENT OPERATOR documented in this encounter Plan of Treatment Not on filedocumented as of this encounter Goals Goal Patient Goal Associated Recent Patient-Stated? Author Type Problems Progress Routine Health General No change No Peter Ramesh (02/05/2021 Abbie Murray, 11:19 AM CHEMICAL TREATMENT OPERATOR) RN Note: Formatting of this note is differe nt from the original. Routine Health Management Care Team Patient Care Team: Corrine Vazquez MD as PCP - [facility] Yossi Potts, RN as Registered Nurse (Diabetes Education) Abbie Ramesh RN as Credit Relationship Manager Future Scheduled Appointments No future appointments. [...] (02/05/2021 11:17 AM No Abbie Ramesh, RN CHEMICAL TREATMENT OPERATOR) Note: Formatting of this note is [...] (HCC) documented in this encounter Care Teams Roller Printer Relationship Specialty Start Date End Date Corrine Vazquez MD PCP - General Family Medicine 07/07/19 08/19/[address] [place] [address] documented as of this encounter
--- OUTSIDE RECORDS SUMMARY | 2021-12-10 15:18 | XMS_ITS | Encounter Summary ---
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 Routine Health Management Care Team Patient Care Team: Corrine Vazquez MD as PCP - General ([facility]) Yossi Potts, ERA as Registered Nurse (Diabetes Education) Abbie Ramesh, RN as Salt Machine Operator Future Scheduled Appointments No future [...] 11:17 AM No Abbie Ramesh, RN MANAGER OPERATIONS AND PROCUREMENT) Note: Formatting of this note is differe [...] Seropositive Re sults for this RATE AM MANAGER OPERATIONS AND PROCUREMENT rheumatoid arthritis procedu re are in of multiple sites the result s (HCC) section. Encounter for long-term (current) use of medicatio ns Vitamin D deficiency, unspecified VITAMIN D, TOTAL Routine 01/25/2020 10:35 Seropositive Results for this AM MANAGER OPERATIONS AND PROCUREMENT rheumatoid arthritis procedu re are in of multiple sites the result s (HCC) section. Encounter for long-term (current) use of medicatio ns Vitamin D deficiency, unspecified CBC BRANCH OFFICE Routine 01/25/2020 10:35 Seropositive Result s for this W/DIFF AM MANAGER OPERATIONS AND PROCUREMENT rheumatoid arthritis procedu re are in of multiple sites the result s (HCC) section. Encounter for long-term (current) use of medicatio ns Vitamin D deficiency, unspecified CREATININE, SERUM Routine 01/25/2020 10:35 Seropositive Result s for this AM MANAGER OPERATIONS AND PROCUREMENT rheumatoid arthritis procedu re are in of multiple sites the result s (HCC) section. Encounter for long-term (current) use of medicatio ns Vitamin D deficiency, unspecified SEDIMENTATION RATE, Routine 01/25/2020 10:35 Seropositive Resu lts for this AUTOMATED AM MANAGER OPERATIONS AND PROCUREMENT rheumatoid arthritis procedu re are in of multiple sites the result s (HCC) section. Encounter for long-term (current) use of medicatio ns Vitamin D deficiency, unspecified C-REACTIVE PROTEIN Routine 01/25/2020 10:35 Seropositive Resul ts for this AM MANAGER OPERATIONS AND PROCUREMENT rheumatoid arthritis procedu re are in of multiple sites the result s (HCC) section. Encounter for long-term (current) use of medicatio ns Vitamin D deficiency, unspecified ALT Routine 01/25/2020 10:35 Seropositive Results for this AM MANAGER OPERATIONS AND PROCUREMENT rheumatoid arthritis procedu re are in of multiple sites the result s (HCC) section. Encounter for long-term (current) use of medicatio ns Vitamin D deficiency, unspecified AST Routine 01/25/2020 10:35 Seropositive Results for this AM MANAGER OPERATIONS AND PROCUREMENT rheumatoid arthritis procedu re are in of multiple sites the result s (HCC) section. Encounter for long-term (current) use of medicatio ns Vitamin D deficiency, unspecified CALCIUM Routine 01/25/2020 10:35 Seropositive Results for this AM MANAGER OPERATIONS AND PROCUREMENT rheumatoid arthritis procedu re are in of multiple sites the result s (HCC) section. Encounter for long-term (current) use of medicatio ns Vitamin D deficiency, unspecified ALBUMIN Routine 01/25/2020 10:35 Seropositive Results for this AM MANAGER OPERATIONS AND PROCUREMENT rheumatoid arthritis procedu re are in of multiple sites the result s (HCC) section. Encounter for long-term (current) use of medicatio ns Vitamin D deficiency, unspecified documented in this encounter Results (ABNORMAL) Glomerular filtration rate (GFR) (01/25/2020 10:35 AM MANAGER OPERATIONS AND PROCUREMENT) athologist Signature GFR 40 (A) 01/26/2020 [facility] 2:05 PM MANAGER OPERATIONS AND PROCUREMENT CENTER LABORATORY 48 (A) 01/26/2020 [facility] [place] GFR 2:05 PM MANAGER OPERATIONS AND PROCUREMENT CENTER LABORATORY Comment: GFR calculated from serum creatinine v alue Chronic Kidney Disease less than 60 mL/m in/1.73 m2 Kidney Failure less than 15 mL/min/1.73 m2 Note: effective 07/01/06 IDMS-Traceable MDRD Study Equation used. Specimen Anatomical Collection Method Collection Time Receive d Time (Source) Location / / Volume Laterality 01/25/2020 10:35 01/25/2020 AM MANAGER OPERATIONS AND PROCUREMENT 10:35 AM MANAGER OPERATIONS AND PROCUREMENT Outside Referring Lab Provider LAB BLOOD ORDERABLES Performing Organization Address City/[facility]/ZIP Code Phon e Number [facility] [address] [place] [phone] (ABNORMAL) ESR-Sed rate (01/25/2020 10:35 AM MANAGER OPERATIONS AND PROCUREMENT) athologist Signature Sed Rate 67 (H) 0 - 29 01/26/2020 [facility] mm/hr 1:43 PM MANAGER OPERATIONS AND PROCUREMENT CENTER LABORATORY Specimen Anatomical Collection Method Collection Time Receive d Time (Source) Location / / Volume Laterality Blood (Blood, 01/25/2020 10:35 01/26/2020 1:01 Venous) AM MANAGER OPERATIONS AND PROCUREMENT PM MANAGER OPERATIONS AND PROCUREMENT Outside Referring Lab Provider LAB BLOOD ORDERABLES Performing Organization Address City/[facility]/ZIP Code Phon e Number [facility] [address] [place] [phone] (ABNORMAL) CBC Branch Off w/Diff (01/25/2020 10:35 AM MANAGER OPERATIONS AND PROCUREMENT) [facility] gist Method Time Signature WBC 6.3 3.5 - 10.5 01/25/2020 [facility] K/uL 12:11 PM MANAGER OPERATIONS AND PROCUREMENT FALLS RBC 3.84 (L) 3.90 - 01/25/2020 [facility] 5.00 M/uL 12:11 PM MANAGER OPERATIONS AND PROCUREMENT FALLS Hemoglobin 11.3 (L) 12.0 - 01/25/2020 [facility] 15.5 g/dL 12:11 PM MANAGER OPERATIONS AND PROCUREMENT FALLS Hematocrit 35.0 35.0 - 01/25/2020 [facility] 44.0 % 12:11 PM MANAGER OPERATIONS AND PROCUREMENT FALLS Platelets 181 150 - 450 01/25/2020 [facility] K/uL 12:11 PM MANAGER OPERATIONS AND PROCUREMENT FALLS MCV 91.1 81.6 - 01/25/2020 [facility] 98.3 fL 12:11 PM MANAGER OPERATIONS AND PROCUREMENT FALLS MCH 29.4 26.0 - 01/25/2020 [facility] 32.0 pg 12:11 PM MANAGER OPERATIONS AND PROCUREMENT FALLS MCHC 32.3 32.0 - 01/25/2020 [facility] 36.0 g/dL 12:11 PM MANAGER OPERATIONS AND PROCUREMENT FALLS RDW 13.3 11.9 - 01/25/2020 [facility] 15.5 % 12:11 PM MANAGER OPERATIONS AND PROCUREMENT FALLS Lymphocytes % 18.3 % 01/25/2020 [facility] 12:11 PM MANAGER OPERATIONS AND PROCUREMENT FALLS Mid-size Cells 9.5 % 01/25/2020 [facility] 12:11 PM MANAGER OPERATIONS AND PROCUREMENT FALLS Granulocytes/Jean Claude 72.2 % 01/25/2020 [facility] trophils 12:11 PM MANAGER OPERATIONS AND PROCUREMENT FALLS Lymphocytes 1.2 0.9 - 2.9 01/25/2020 [facility] Absolute K/uL 12:11 PM MANAGER OPERATIONS AND PROCUREMENT FALLS MIDS Absolute 0.6 0.4 - 1.5 01/25/2020 [facility] K/uL 12:11 PM MANAGER OPERATIONS AND PROCUREMENT FALLS Granulocytes/[place] 4.5 1.7 - 7.0 01/25/2020 [facility] trophils K/uL 12:11 PM MANAGER OPERATIONS AND PROCUREMENT FALLS Absolute Specimen Anatomical Collection Method Collection Time Receive d Time (Source) Location / / Volume Laterality Blood (Blood, 01/25/2020 10:35 01/25/2020 Venous) AM MANAGER OPERATIONS AND PROCUREMENT 10:35 AM MANAGER OPERATIONS AND PROCUREMENT Outside Referring Lab Provider LAB BLOOD ORDERABLES Performing Organization Address City/[facility]/ZIP Code Phon e Number [facility] [place] [address] [place] [address] Albumin (01/25/2020 10:35 AM MANAGER OPERATIONS AND PROCUREMENT) athologist Signature Albumin, Serum 4.0 3.5 - 5.0 01/26/2020 [facility] g/dL 2:05 PM MANAGER OPERATIONS AND PROCUREMENT CENTER LABORATORY Specimen Anatomical Collection Method Collection Time Receive d Time (Source) Location / / Volume Laterality Blood (Blood, 01/25/2020 10:35 01/26/2020 1:01 Venous) AM MANAGER OPERATIONS AND PROCUREMENT PM MANAGER OPERATIONS AND PROCUREMENT Outside Referring Lab Provider LAB BLOOD ORDERABLES Performing Organization Address [facility]/ZIP Code Phon e Number [facility] [address] [place] [phone] (ABNORMAL) Creatinine, Serum (01/25/2020 10:35 AM MANAGER OPERATIONS AND PROCUREMENT) athologist Signature Creatinine 1.3 (H) 0.4 - 1.2 01/26/2020 [facility] mg/dL 2:05 PM [facility] CENTER LABORATORY Specimen Anatomical Collection Method Collection Time Receive d Time (Source) Location / / Volume Laterality Blood (Blood, 01/25/2020 10:35 01/26/2020 1:01 Venous) AM MANAGER OPERATIONS AND PROCUREMENT PM MANAGER OPERATIONS AND PROCUREMENT Outside Referring Lab Provider LAB BLOOD ORDERABLES Performing Organization Address City/[facility]/ZIP Code Phon e Number [facility] [address] [place] [address] AST (01/25/2020 10:35 AM MANAGER OPERATIONS AND PROCUREMENT) athologist Signature AST 28 8 - 43 U/L 01/26/2020 [facility] 2:05 PM MANAGER OPERATIONS AND PROCUREMENT CENTER LABORATORY Specimen Anatomical Collection Method Collection Time Receive d Time (Source) Location / / Volume Laterality Blood (Blood, 01/25/2020 10:35 01/26/2020 1:01 Venous) AM MANAGER OPERATIONS AND PROCUREMENT PM MANAGER OPERATIONS AND PROCUREMENT Outside Referring Lab Provider LAB BLOOD ORDERABLES Performing Organization Address City/[facility]/ZIP Code Phon e Number [facility] [address] [place] [address] ALT (01/25/2020 10:35 AM MANAGER OPERATIONS AND PROCUREMENT) athologist Signature ALT (SGPT) 22 0 - 34 U/L 01/26/2020 [facility] 2:05 PM [facility] CENTER LABORATORY Specimen Anatomical Collection Method Collection Time Receive d Time (Source) Location / / Volume Laterality Blood (Blood, 01/25/2020 10:35 01/26/2020 1:01 Venous) AM MANAGER OPERATIONS AND PROCUREMENT PM MANAGER OPERATIONS AND PROCUREMENT Outside Referring Lab Provider LAB BLOOD ORDERABLES Performing Organization Address [facility] Phon e Number [facility] [address] [place] [phone] (ABNORMAL) C-reactive protein (01/25/2020 10:35 AM MANAGER OPERATIONS AND PROCUREMENT) athologist [facility] CRP 11.7 (H) 0.0 - 4.9 01/26/2020 [facility] mg/L 2:05 PM [facility] LABOR[facility]ORY Specimen Anatomical Collection Method Collection Time Receive d Time (Source) Location / / Volume Laterality Blood (Blood, 01/25/2020 10:35 01/26/2020 1:01 Venous) AM MANAGER OPERATIONS AND PROCUREMENT PM MANAGER OPERATIONS AND PROCUREMENT Outside Referring Lab Provider LAB BLOOD ORDERABLES Performing Organization Address City/[facility] Phon e Number [facility] [address] [place] [phone] Vitamin D, Total ([facility] preferred) (01/25/2020 10:35 AM MANAGER OPERATIONS AND PROCUREMENT) athologist [facility] Vitamin D, 48.5 ng/mL 01/26/2020 [facility] Total 2:04 PM MANAGER OPERATIONS AND PROCUREMENT CENTER LABORATORY Comment: Deficient ?<20 ? ng/mL Insufficient ? 20-<30 ??ng/mL Sufficient ? 30-100 ??ng/mL Vitamin D2/D3 fractionation is recommend ed at the discretion of the clinician if Total Vitamin D is w ithin deficient or insufficient range. Specimen Anatomical Collection Method Collection Time Receive d Time (Source) Location / / Volume Laterality Blood (Blood, 01/25/2020 10:35 01/26/2020 1:01 Venous) AM MANAGER OPERATIONS AND PROCUREMENT PM MANAGER OPERATIONS AND PROCUREMENT Outside Referring Lab Provider LAB BLOOD ORDERABLES Performing Organization Address City/State/ZIP Code Phon e Number [facility] [address] [place] [phone] Calcium (01/25/2020 10:35 AM MANAGER OPERATIONS AND PROCUREMENT) P athologist Signature Calcium, 10.1 8.4 - 10.2 01/26/2020 [facility] Total,S mg/dL 2:05 PM MANAGER OPERATIONS AND PROCUREMENT CENTER LABORATORY Specimen Anatomical Collection Method Collection Time Receive d Time (Source) Location / / Volume Laterality Blood (Blood, 01/25/2020 10:35 01/26/2020 1:01 Venous) AM MANAGER OPERATIONS AND PROCUREMENT PM MANAGER OPERATIONS AND PROCUREMENT Outside Referring Lab Provider LAB BLOOD ORDERABLES Performing Organization Address City/State/ZIP Code Phon e Number [facility] [address] [place] [address] documented in this encounter Visit Diagnoses Diagnosis Seropositive rheumatoid arthritis of [facility]) Encounter for long-term (current) use of medications Encounter for long-term (current) use of other medications Vitamin D deficiency, unspecified documented in this encounter Care Teams Lead Miner Blasting Relationship Specialty Start Date End Date Corrine Vazquez MD PCP - General Family Medicine 07/07/19 08/19/[address] [place] [address] documented as of this encounter
--- OUTSIDE RECORDS SUMMARY | 2021-12-10 15:18 | XMS_ITS | Encounter Summary ---
:1945 Author Organization [facility] Address [address] [place] [address] Care Team Providers Name Role Phone Corrine Vazquez MD Primary Care Provider Reason for Visit Reason Onset Date Comments Med Refill 12/28/2019 Encounter Details Date Type Department Care Team Description 12/28/2019 Telephone [place] Corrine Vazquez MD Med Refill [address] [place], [place] [address] [place], [place] [phone] (Wo rk) Social History Tobacco Use Types [...] 12/28/2019 2:34 PM CST RX faxed to [facility] [phone] ATOLOGIST MANAGING PARTNER Telephone Encounter - Margareth Sanchez RN - 12/28/2019 2:09 PM CST Please fax Rx to [facility] ATOLOGIST MANAGING PARTNER Telephone Encounter - Margareth Sanchez RN - 12/28/2019 8:36 AM CST Please review rx request. ATOLOGIST MANAGING PARTNER documented in this encounter Plan of Treatment Not on filedocumented as of this encounter Goals Goal Patient Goal Associated Recent Patient-Stated? Author Type Problems Progress Routine Health General No change Peter Monzon (02/05/2021 Abbie Murray, 11:19 AM DERMATOLOGIST MANAGING PARTNER) RN Note: Formatting of this note is differe nt from the original. Routine Health Management Care Team Patient Care Team: Corrine Vazquez MD as PCP - [facility] Yossi Potts, RN as Registered Nurse (Diabetes Education) Abbie Ramesh RN as Environmental Services Assistant Future Scheduled Appointments No future appointments. [...] [facility] Pneumococcal Vaccine: <64 Completed [facility] Pneumococcal Vaccine: 65+ Years Com pleted HPV Vaccines Aged Out Notes: Due: Urine Protein screening Eye exam AWV A1C Lipid panel Diabetes Management General No change (02/05/2021 11:17 AM Abbie Monzon, RN DERMATOLOGIST MANAGING PARTNER) Note: Formatting of this note is differe [...] Primary documented in this encounter Care Teams Cocoa Room Operator Relationship Specialty Start Date End Date Corrine Vazquez MD PCP - General Family Medicine 07/07/19 08/19/[address] [place] [address] documented as of this encounter
--- OUTSIDE RECORDS SUMMARY | 2021-12-10 15:18 | XMS_ITS | Encounter Summary ---
:1945 Author Organization [facility] Address [address] [place] [address] Care Team Providers Name Role Phone Corrine Vazquez MD Primary Care Provider Encounter Details Date Type Department Care Team Description 09/06/2019 Orders Only [place] Corrine Vazquez MD [address] [place], [place] [address] [place], [place] [phone] (Wo rk) Social History Tobacco Use Types [...] Management (02/05/2021 Abbie Murray, 11:19 AM CLAIMS ADJUSTER SUPERVISOR) RN Note: Formatting of this note is differe nt from the original. Routine Health Management Care Team Patient Care Team: Corrine Vazquez MD as PCP - General ([facility]) Yossi Potts, RN as Registered Nurse (Diabetes Education) Abbie Ramesh, ERA as Border Patrol Officer Future Scheduled Appointments No future appointments. Health Maintenance Health Maintenance Topic Date Due Urine Protein Screening 05/31/2020 Lipid Panel 09/05/2020 Glaucoma Screening 67+ Yr 12/25/2020 Ophthalmology Exam 12/25/2020 [facility] 01/12/2021 Hemoglobin A1C 01/24/2021 Diabetic Foot Exam 03/16/2021 Colorectal Cancer Screening: Colonoscop y 05/21/2021 Fall Risk Performed 06/05/2021 Mammogram 12/03/2021 COVID-19 Vaccine Completed [facility] Pneumococcal Vaccine: <64 Completed [facility] Pneumococcal Vaccine: 65+ Years Com pleted HPV Vaccines Aged Out Notes: Due: Urine Protein screening Eye exam AWV A1C Lipid panel Diabetes Management General No change (02/05/2021 11:17 AM No Abbie Ramesh, RN CLAIMS ADJUSTER SUPERVISOR) Note: Formatting of this note is [...] on filedocumented in this encounter Care Teams Cork Pressing Machine Operator Relationship Specialty Start Date End Date Corrine Vazquez MD PCP - General Family Medicine 07/07/19 08/19/[address] [place] [address] documented as of this encounter
--- OUTSIDE RECORDS SUMMARY | 2021-12-10 15:18 | XMS_ITS | Encounter Summary ---
:1945 Author Organization [facility] Address [address] [place] [address] Care Team Providers Name Role Phone Corrine Vazquez MD Primary Care Provider Reason for Visit Reason Onset Date Comments RX 11/25/2019 Encounter Details Date Type Department Care Team Description 11/25/2019 Telephone [place] Corrine Vazquez MD RX [address] [place], [place] [address] [place], [place] [phone] (Wo rk) Social History Tobacco Use Types [...] Alyssa Will call us back from the [employer] [facility]. Telephone Encounter - Margareth Sanchez RN - 11/28/2019 2:58 PM CDT No answer. Telephone Encounter - Margareth Sanchez RN - 11/28/2019 10:58 AM CDT [facility] Telephone Encounter - Margareth Sanchez RN - 11/28/2019 8:42 AM CDT They open at 9am. Phone number is [phone]. Telephone Encounter - Phoebe Donohue - 11/25/2019 2:02 PM CDT Patient is requesting RX for accu check fast clix be sent to [place] [facility]. Fax number is [phone]. documented in this encounter Plan of Treatment Not on filedocumented as of this encounter Goals Goal Patient Goal Associated Recent Patient-Stated? Author Type Problems Progress Routine Health General No change Peter Monzon (02/05/2021 Abbie Murray, 11:19 AM BEATER OUT) RN Note: Formatting of this note is differe nt from the original. Routine Health Management Care Team Patient Care Team: Corrine Vazquez MD as [facility] - [facility] Yossi Potts, RN as Registered Nurse (Diabetes Education) Abbie Ramesh RN as Deputy Of Counter Intelligence Future Scheduled Appointments No future appointments. Health [...] (02/05/2021 11:17 AM No Abbie Ramesh, RN BEATER OUT) Note: Formatting of this note is differe [...] filedocumented in this encounter Care Teams Director Medical Science Relationship Specialty Start Date End Date Corrine Vazquez MD PCP - General Family Medicine 07/07/19 08/19/21 [address] [facility] [address] [place] [address] documented as of this encounter
--- OUTSIDE RECORDS SUMMARY | 2021-12-10 15:19 | XMS_ITS | Encounter Summary ---
:1945 Author Organization [facility] Address [address] [place] [address] Care Team Providers Name Role Phone Corrine Vazquez MD Primary Care Provider Encounter Details Date Type Department Care Team Description 08/16/2019 Lab [place] UTI symptoms; [address] Vaginal discharge [place], [place] [address] Social History Tobacco Use [...] Peter Ramesh (02/05/2021 Abbie Murray, 11:19 AM DATA INTEGRITY CONSULTANT) RN Note: Formatting of this note is differe nt from the original. Routine Health Management Care Team Patient Care Team: Corrine Vazquez MD as PCP - General ([facility] Medicine) Yossi Potts, RN as Registered Nurse (Diabetes Education) Abbie Ramesh, ERA as Can Line Operator Future Scheduled Appointments No future [...] and WN only) (08/16/2019 10:11 AM CDT) [facility] Method Time Signature Rapid NEGATIVE Negative 08/16/2019 [facility] Trichomonas 10:26 AM FALLS Test CDT Yeast, Wet Prep NEGATIVE Negative 08/16/2019 [facility] 4:04 [facility] Clue Cells, Wet NONE SEEN None Seen 08/16/2019 [facility] Prep /hpf 4:04 [facility] WBC, Wet Prep MODERATE (A) None Seen 08/16/2019 [facility] /hpf 4:04 PM CDT [facility] Specimen Anatomical Collection Method Collection Time Receive d Time (Source) Location / / Volume Laterality Swab 08/16/2019 10:11 08/16/2019 AM CDT 10:16 AM CDT Radha Sharma MD LAB BODY FLUIDS AND STOOLS O RADHA Performing Organization Address City/[facility]/ZIP Code Phon e Number [facility] [address] [place] [address] LABORATORY [facility] [address] [place] [address] (ABNORMAL) Urine culture (08/16/2019 9:08 AM CDT) [facility] Method Time Signature Urine Culture Escherichia coli 08/18/2019 [facility] >100,000 cfu/ml 9:36 AM CDT [facility] Specimen (Source) Anatomical Collection Method Collection [...] - GENERAL O RDERABLES Performing Organization Address City/[facility]/ZIP Code Phon e Number [facility] [address] [place] [address] (ABNORMAL) Urinalysis-Microscopic Exam (08/16/2019 9:08 AM CDT) [facility] Method Time Signature Casts, urine NONE SEEN [...] [facility] [place] [address] [place] [address] (ABNORMAL) Urinalysis with reflex microscopic (08/16/2019 9:08 AM CDT) [facility] Method Time Signature Type COLLECTION HAT [...] FALLS Specific 1.025 1.000 08/16/2019 [facility] [place], ->=1.030 9:25 AM CDT FALLS Urine Blood, Urine MODERATE (A) NEGATIVE 08/16/2019 [facility] 9:25 AM CDT FALLS pH, Urine 5.0 5.0 - 7.0 08/16/2019 [facility] 9:25 AM CDT FALLS Protein, 30 (A) NEGATIVE-TRA 08/16/2019 [facility] Urine CE mg/dL 9:25 AM CDT FALLS Urobilinogen, 0.2 0.2 - 1.0 08/16/2019 [facility] Urine E.U./dL 9:25 AM CDT FALLS Nitrite, NEGATIVE NEGATIVE 08/16/2019 [facility] Urine 9:25 AM CDT FALLS Leukocytes, SMALL (A) NEGATIVE 08/16/2019 [facility] Urine 9:25 AM CDT FALLS Specimen Anatomical Collection Method Collection Time Receive d Time (Source) Location / / Volume Laterality Urine (Urine, 08/16/2019 9:08 AM 08/16/19 20 9:10 Clean Catch) CDT AM CDT Radha Sharma MD LAB URINE ORDERABLES Performing Organization Address City/State/ZIP Code Phon e Number [facility] [address] [place] [address] documented in this encounter Visit Diagnoses Diagnosis UTI symptoms Vaginal discharge Leukorrhea, not specified as infective documented in this encounter Care Teams Coat Room Attendant Relationship Specialty Start Date End Date Corrine Vazquez MD PCP - General Family Medicine 07/07/19 08/19/[address] [place] [address] documented as of this encounter
--- OUTSIDE RECORDS SUMMARY | 2021-12-10 15:19 | XMS_ITS | Encounter Summary ---
:[address] [facility] Address [address] [place] [address] Care Team Providers Name Role Phone Corrine Vazquez MD Primary Care Provider Encounter Details Date Type Department Care Team Description 08/18/2019 Orders Only [place] Radha Sharma Urinary tract [address] [place] infection [place] [address] hematuria, site [phone] unspecified (Pr imary Dx) Social History Tobacco [...] Peter Monzon (02/05/2021 Abbie Murray, 11:19 AM HVAC FIELD SERVICE TECHNICIAN) RN Note: Formatting of this note is differe nt from the original. Routine Health Management Care Team Patient Care Team: Corrine Vazquez MD as PCP - [facility] Yossi Potts, RN as Registered Nurse (Diabetes Education) Abbie Ramesh, ERA as Bucket Chucker Future Scheduled Appointments No future appointments. Health [...] Primary documented in this encounter Care Teams Pizza Driver Relationship Specialty Start Date End Date Corrine Vazquez MD PCP - General Family Medicine 07/07/19 08/19/[address] [place] [address] documented as of this encounter
--- OUTSIDE RECORDS SUMMARY | 2021-12-10 15:19 | XMS_ITS | Encounter Summary ---
:1945 Author Organization Address [address] [place] [address] Care Team Providers Name Role Phone Corrine Vazquez MD Primary Care Provider Encounter Details Date Type Department Care Team Description 07/26/2019 Orders Only SE Endocrinology Bacilio Stewart, Type 2 diabetes mellitus wit h other specified complication, with long-term current use of insulin (HCC) (Primary Dx); [address] [place] [address] MBBS Stage 3 chronic kidney disease (HCC) [place] [address] [place] [address] [place] [address] Social History Tobacco Use Types Packs/Day Years [...] Peter Ramesh (02/05/2021 Abbie Murray, 11:19 AM PRODUCTION OPERATIONS MANAGER) RN Note: Formatting of this note is differe nt from the original. Routine Health Management Care Team Patient Care Team: Corrine Vazquez MD as PCP - General ([facility] Medicine) Yossi Potts, RN as Registered Nurse (Diabetes Education) Abbie Ramesh RN as Family Support Specialist Future Scheduled Appointments No future appointments. [...] (HCC) documented in this encounter Care Teams Toll Operator Relationship Specialty Start Date End Date Corrine Vazquez MD PCP - General Family Medicine 07/07/19 08/19/[address] [place] [address] documented as of this encounter
--- OUTSIDE RECORDS SUMMARY | 2021-12-10 15:19 | XMS_ITS | Encounter Summary ---
:1945 Author Organization [facility] Address [address] [place] [address] Care Team Providers Name Role Phone Corrine Vazquez MD Primary Care Provider Reason for Visit Reason Onset Date Comments RX 08/24/2019 Encounter Details Date Type Department Care Team Description 08/24/2019 Telephone [place] Corrine Vazquez MD RX [address] [place], [place] [address] [place], [place] [phone] (Wo rk) Social History Tobacco Use Types [...] this is too expensive she should not burr picker but then let us know. She should not take any more tetracycline Telephone Encounter - Margareth Sanchez RN - 08/24/2019 12:16 PM CDT Patient is taking Tetracycline and she reports having diarrhea since starting this medication. The pharmacy was only able to fill 1/2 the Rx. She needs to burr picker the second half today and she [...] effects of Tetracycline. Please call her at [phone]. documented in this encounter Plan of Treatment Not on filedocumented as of this encounter Goals Goal Patient Goal Associated Recent Patient-Stated? Author Type Problems Progress Routine Health General No change No Peter Ramesh (02/05/2021 Abbie Murray, 11:19 AM INSULATION POWER UNIT TENDER) RN Note: Formatting of this note is differe nt from the original. Routine Health Management Care Team Patient Care Team: Corrine Vazquez MD as PCP - General ([facility]) Yossi Potts, RN as Registered Nurse (Diabetes Education) Abbie Ramesh, ERA as Tube Backer Future Scheduled Appointments No future appointments. Health [...] ry documented in this encounter Care Teams Double Needle Operator Relationship Specialty Start Date End Date Corrine Vazquez MD PCP - General Family Medicine 07/07/19 08/19/[address] [place] [address] documented as of this encounter
--- OUTSIDE RECORDS SUMMARY | 2021-12-10 15:19 | XMS_ITS | Encounter Summary ---
:[address] [facility] Address [address] [place] [address] Care Team Providers Name Role Phone Corrine Vazquez MD Primary Care Provider Reason for Visit Reason Onset Date Comments Medication cost 07/22/2019 Encounter Details Date Type Department Care Team Description 07/22/2019 Telephone Endocrinology Bacilio Stewart MBBS Medication cost [address] 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 Routine Health Management Care Team Patient Care Team: Corrine Vazquez MD as PCP - General ([facility] Medicine) Yossi Potts, RN as Registered Nurse (Diabetes Education) Abibe Ramesh RN as Entry Level Staff Accountant Future Scheduled Appointments No future appointments. [...] on filedocumented in this encounter Care Teams Sql Engineer Relationship Specialty Start Date End Date Corrine Vazquez MD PCP - General Family Medicine 07/07/19 08/19/[address] [place] [address] documented as of this encounter
--- OUTSIDE RECORDS SUMMARY | 2021-12-10 15:19 | XMS_ITS | Encounter Summary ---
:1945 Author Organization [facility] Address [address] [place] [address] Care Team Providers Name Role Phone Corrine Vazquez MD Primary Care Provider Reason for Visit Reason Comments Med Refill Encounter Details Date Type Department Care Team Description 07/20/2019 Refill [place] Corrine Vazquez, Frequency of micturition; [address] [facility] [place] Anemia, unspecified type [place], [place] [id number] [place] [address] [place] [address] Social History Tobacco Use Types Packs/Day Years [...] She would like Ferrous Sulfate renewed at [facility] in [place] Telephone Encounter - Kenia Baron - 07/25/2019 3:45 PM CDT Patient returned nurse phone call. Please call [phone]. Telephone Encounter - Vero Interiano RN - [...] Ramesh (02/05/2021 Abbie Murray, 11:19 AM OFFICE SECRETARY) RN Note: Formatting of this note is differe nt from the original. Routine Health Management Care Team Patient Care Team: Corrine Vazquez MD as PCP - General [facility] Yossi Potts, RN as Registered Nurse (Diabetes Education) Abbie Ramesh RN as Business Center Representative Future Scheduled Appointments No future appointments. Health [...] type documented in this encounter Care Teams Marketing Rotation Associate Relationship Specialty Start Date End Date Corrine Vazquez MD PCP - General Family Medicine 07/07/19 08/19/[address] [place] [address] documented as of this encounter
--- OUTSIDE RECORDS SUMMARY | 2021-12-10 15:19 | XMS_ITS | Encounter Summary ---
:1945 Author Organization [facility] Address [address] [place] [address] Care Team Providers Name Role Phone Corrine Vazquez MD Primary Care Provider Encounter Details Date Type Department Care Team Description 08/16/2019 Orders Only [place] Radha Sharma UTI symptoms (Primary [address] Dx) [place], [place] [address] Social History Tobacco Use [...] or relatives? How often do you attend synagogue or More than 4 times per year 12/23/2018 christianity services? Do you belong to any clubs or No 12/23/2018 organizations such as synagogue groups, unions, fraternal or athletic groups, or [...] Peter Ramesh (02/05/2021 Abbie Murray, 11:19 AM BRUSHER HAND) RN Note: Formatting of this note is differe nt from the original. Routine Health Management Care Team Patient Care Team: Corrine Vazquez MD as PCP - General [facility] Yossi Potts, RN as Registered Nurse (Diabetes Education) Abbie Ramesh, ERA as Senior Quality Assurance Analyst Future Scheduled Appointments No future appointments. Health Maintenance Health Maintenance Topic Date Due Urine Protein Screening 05/31/2020 Lipid Panel 09/05/2020 Glaucoma Screening 67+ Yr 12/25/2020 Ophthalmology Exam 12/25/2020 [facility] Annual Wellness 01/12/2021 Hemoglobin A1C 01/24/2021 Diabetic Foot Exam 03/16/2021 Colorectal Cancer Screening: Colonoscop y 05/21/2021 Fall Risk Performed 06/05/2021 Mammogram 12/03/2021 COVID-19 Vaccine Completed [facility] Pneumococcal Vaccine: <64 Completed [facility] Pneumococcal Vaccine: 65+ Years Com pleted HPV Vaccines Aged Out Notes: Due: Urine Protein screening Eye exam AWV A1C Lipid panel documented as of this encounter Results (ABNORMAL) Urinalysis with reflex microscopic (08/16/2019 9:08 AM CDT) [facility] Method Time Signature Type COLLECTION HAT [...] [place] Specific 1.025 1.000 08/16/2019 [facility] [place], ->=1.030 9:25 AM CDT [place] Urine Blood, Urine MODERATE (A) NEGATIVE 08/16/2019 [facility] 9:25 AM CDT [place] pH, Urine 5.0 5.0 - 7.0 08/16/2019 [facility] 9:25 AM CDT [place] Protein, 30 (A) NEGATIVE-TRA 08/16/2019 [facility] Urine CE mg/dL 9:25 AM CDT [place] Urobilinogen, 0.2 0.2 - 1.0 08/16/2019 [facility] Urine E.U./dL 9:25 AM CDT [place] Nitrite, NEGATIVE NEGATIVE 08/16/2019 [facility] Urine 9:25 AM CDT [place] Leukocytes, SMALL (A) NEGATIVE 08/16/2019 [facility] Urine 9:25 AM CDT [place] Specimen Anatomical Collection Method Collection Time Receive d Time (Source) Location / / Volume Laterality Urine (Urine, 08/16/2019 9:08 AM 08/16/19 20 9:10 Clean Catch) CDT AM CDT Radha Sharma MD LAB URINE ORDERABLES Performing Organization Address City/State/ZIP Code Phon e Number [facility] [place] [address] [place] [address] documented in this encounter Visit Diagnoses Diagnosis UTI symptoms - Primary documented in this encounter Care Teams Email Campaign Manager Relationship Specialty Start Date End Date Corrine Vazquez MD PCP - General Family Medicine 07/07/19 08/19/[address] [place] [address] documented as of this encounter
--- OUTSIDE RECORDS SUMMARY | 2021-12-10 15:19 | XMS_ITS | Encounter Summary ---
:1945 Author Organization [facility] Address [address] [place] [address] Care Team Providers Name Role Phone Corrine Vazquez MD Primary Care Provider Reason for Visit Consultation (Routine) - Closed Specialty Diagnoses / Procedures Referred By Contact Refer red To Contact Diagnoses Medicare annual wellness visit, initial Corrine Vazquez MD Care Coordination [address] [place], [place] [phone] Referral ID Status Reason Start Date Expiration Date Visits V isits Requested Authorized [id number] Closed Specialty 12/23/2018 99 99 Services Required Encounter Details Date Type Department Care Team Description 08/26/2019 Patient Outreach SE Care Abbie Ramesh and coordination of care (Primary Dx); Aldo Murray, RN Type 2 diabetes mellitus with other spec ified complication, with long-term current use of insulin (HCC); [address] [facility] [address] Rheumatoid arthritis, involv ing unspecified site, unspecified rheumatoid factor presence ([facility]); [place] [address] [facility] Rheumatoid arthritis, involving unspecif ied site, unspecified whether rheumatoid factor present ([facility]); [phone] [place], [place] Mixed hyperlip idemia [address] Social History [...] Coordination Discussion Date: 08/26/2019 3:12 PM Completed [facility] monthly follow up with Marcial She continues to work towards previously set goals. Today's discussion: ??? Reviewed medication list and the need for refills ??? 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 This AM at 0500, reading was 66 [...] ??? Fall Risk Performed 12/24/2019 ??? [facility] [place]ness 12/24/2019 ??? [...] 09/12/2019 10:00 AM JOSE [facility] J[facility] Yossi Potts RN - 08/26/2019 2:20 PM [...] Peter Monzon (02/05/2021 Abbie Murray, 11:19 AM GRAIN TRIMMER) RN Note: Formatting of this note is differe nt from the original. Routine Health Management Care Team Patient Care Team: Corrine Vazquez MD as PCP - General ([facility]) Yossi Potts RN as Registered Nurse (Diabetes Education) Abbie Ramesh RN as Manufacturing Sr Engineer Future Scheduled Appointments No future appointments. [...] change (02/05/2021 11:17 AM Abbie Monzon, RN GRAIN TRIMMER) Note: Formatting of this note is differe [...] hyperlipidemia documented in this encounter Care Teams Long Line Teamster Relationship Specialty Start Date End Date Corrine Vazquez MD PCP - General Family Medicine 07/07/19 08/19/[address] [place] [address] documented as of this encounter
--- OUTSIDE RECORDS SUMMARY | 2021-12-10 15:19 | XMS_ITS | Encounter Summary ---
:1945 Author Organization [facility] Address [address] [place] [address] Care Team Providers Name Role Phone Corrine Vazquez MD Primary Care Provider Reason for Visit Consultation (Routine) - Closed Specialty Diagnoses / Procedures Referred By Contact Refer red To Contact Diagnoses Medicare annual wellness visit, initial Corrine Vazquez MD Care Coordination [address] [place], [place] [phone] Referral ID Status Reason Start Date Expiration Date Visits V isits Requested Authorized [id number] Closed Specialty 12/23/2018 99 99 Services Required Encounter Details Date Type Department Care Team Description 07/19/2019 Patient Outreach SE Care Coordination Abbie Ramesh Counseling and coordination of care (Primary Dx); [address] [facility] Terri RN Type 2 diabetes mellitus with other spec ified complication, with long-term current use of insulin ([facility]); [place] [address] [address] Rheumatoid arthritis, involv ing unspecified site, unspecified rheumatoid factor presence ([facility]); [phone] [facility] Rheumatoid arthritis, involving unspecif ied site, unspecified whether rheumatoid factor present ([facility]) [place] [address] Social History Tobacco Use Types [...] and inquire about safety precautions taken at [facility]. CC called and updated patient on information. [...] [facility] 12/24/2019 ??? Lipid Panel 03/17/2020 ??? Urine Protein Screening 05/31/2020 ??? Colorectal Cancer Screening: Colonoscopy 05/21/2021 ??? HPV Vaccines Aged Out Lifestyle ??? Keep your medical appointments On track On track On track Future Appointments Date Time Provider Department Center 09/06/2019 8:00 AM [facility] [place] [facility] 1 [facility] [place] 09/12/2019 10:00 AM JOSE DE JESUS [facility] Result Component ? ? Hemoglobin A1c < 7.0 8.5 8.8 Patient will work towards decreasing A1c to 7 within 3 months (Sep 2019) (8.2 05/31/19) a.) Patient will check A1C every three months (Should be less than 7.0) b.) Patient will check blood glucose 2 times daily and report to career education teacher weekly c.) Patient will take medication as [...] Ramesh (02/05/2021 Abbie Murray, 11:19 AM DIRECTOR EQUIPMENT) RN Note: Formatting of this note is differe nt from the original. Routine Health Management Care Team Patient Care Team: Corrine Vazquez MD as PCP - General ([facility]) Yossi Potts, RN as Registered Nurse (Diabetes Education) Abbie Ramesh, RN as Hand Trimmer Future Scheduled Appointments No future appointments. [...] 11:17 AM No Abbie Ramesh, RN DIRECTOR EQUIPMENT) Note: Formatting of this note is differe [...] documented in this encounter Care Teams Train Gateman Relationship Specialty Start Date End Date Corrine Vazquez MD PCP - General Family Medicine 07/07/19 08/19/[address] [place] [address] documented as of this encounter
--- OUTSIDE RECORDS SUMMARY | 2021-12-10 15:19 | XMS_ITS | Encounter Summary ---
:1945 Author Organization [facility] Address [address] [place] [address] Care Team Providers Name Role Phone Corrine Vazquez MD Primary Care Provider Encounter Details Date Type Department Care Team Description 08/23/2019 Telephone SE Diabetic Education 2nd Yossi Potts RN Floor [address] [place] [address] [place] [address] [phone] Social History Tobacco Use Types Packs/Day Years [...] Ramesh (02/05/2021 Abbie Murray, 11:19 AM MEDICAL MANAGEMENT SPECIALIST) RN Note: Formatting of this note is differe nt from the original. Routine Health Management Care Team Patient Care Team: Corrine Vazquez MD as PCP - [facility] Yossi Potts RN as Registered Nurse (Diabetes Education) Abbie Ramesh RN as Communications Equipment Operator Future Scheduled Appointments No future appointments. [...] (02/05/2021 11:17 AM No Abbie Ramesh, RN MEDICAL MANAGEMENT SPECIALIST) Note: Formatting of this note is [...] on filedocumented in this encounter Care Teams General Cargo Clerk Relationship Specialty Start Date End Date Corrine Vazquez MD PCP - General Family Medicine 07/07/19 08/19/[address] [place] [address] documented as of this encounter
--- OUTSIDE RECORDS SUMMARY | 2021-12-10 15:19 | XMS_ITS | Encounter Summary ---
:1945 Author Organization [facility] Address [address] [place] [address] Care Team Providers Name Role Phone Corrine Vazquez MD Primary Care Provider Encounter Details Date Type Department Care Team Description 08/18/2019 Orders Only [place] Radha Sharma Urinary tract [address] [place] infection without [place] [address] hematuria, site [phone] unspecified (Pr imary Dx) Social History Tobacco [...] Peter Monzon (02/05/2021 Abbie Murray, 11:19 AM FURNITURE UPHOLSTERY MECHANIC) RN Note: Formatting of this note is differe nt from the original. Routine Health Management Care Team Patient Care Team: Corrine Vazquez MD as PCP - General [facility] Yossi Potts, RN as Registered Nurse (Diabetes Education) Abbie Ramesh, ERA as Pocket Closer Future Scheduled Appointments No future appointments. Health [...] Primary documented in this encounter Care Teams Microsoft Office Instructor Relationship Specialty Start Date End Date Corrine Vazquez MD PCP - General Family Medicine 07/07/19 08/19/[address] [place] [address] documented as of this encounter
--- OUTSIDE RECORDS SUMMARY | 2021-12-10 15:19 | XMS_ITS | Encounter Summary ---
:1945 Author Organization [facility] Address [address] [place] [address] Care Team Providers Name Role Phone Corrine Vazquez MD Primary Care Provider Reason for Visit Reason Comments Med Refill Encounter Details Date Type Department Care Team Description 07/14/2019 Refill SE Endocrinology StewartPengd, Type 2 diabetes mellitus [address] MBBS with hyperglycemia, [place] [address] [address] unspecified whether long [phone] [place], [place] term insulin [facility] ([facility]) [phone] (Primary Dx) Social History Tobacco Use Types [...] Domitila, Management (02/05/2021 Abbie Murray, 11:19 AM ENGINEERING TECHNICIAN) RN Note: Formatting of this note is differe nt from the original. Routine Health Management Care Team Patient Care Team: Corrine Vazquez MD as PCP - General ([facility] Medicine) Yossi Potts, RN as Registered Nurse (Diabetes Education) Abbie Ramesh RN as Direct Chill Casting Operator Future Scheduled Appointments No future appointments. [...] Primary documented in this encounter Care Teams Family Services Worker Relationship Specialty Start Date End Date Corrine Vazquez MD PCP - General Family Medicine 07/07/19 08/19/[address] [place] [address] documented as of this encounter
--- OUTSIDE RECORDS SUMMARY | 2021-12-10 15:19 | XMS_ITS | Encounter Summary ---
:1945 Author Organization [facility] Address [address] [place] [address] Care Team Providers Name Role Phone Adriane Patel FISHERIES MANAGEMENT BIOLOGIST, VETERINARY TECHNICIAN Primary Care Provider [phone] Reason for Visit Reason Onset Date Comments Med Refill 07/25/2019 Encounter Details Date Type Department Care Team Description 07/25/2019 Refill [place] Corrine Vazquez, Anemia, unspecified type [address] [facility] 20 [place], [place] [address] [phone] [place] [address] Social History Tobacco Use Types Packs/Day Years [...] Peter Ramesh (02/05/2021 Abbie Murray, 11:19 AM INFORMATION OFFICER) RN Note: Formatting of this note is differe nt from the original. Routine Health Management Care Team Patient Care Team: Corrine Vazquez MD as PCP - General [facility] Yossi Potts, RN as Registered Nurse (Diabetes Education) Abbie Ramesh, ERA as Insole Presser Future Scheduled Appointments No future appointments. [...] type documented in this encounter Care Teams Wire Frame Lamp Shade Maker Relationship Specialty Start Date End Date Adriane Patel, FISHERIES MANAGEMENT BIOLOGIST, VETERINARY TECHNICIAN PCP - General Family Medicine 08/20/[address] [place] [address] documented as of this encounter
--- OUTSIDE RECORDS SUMMARY | 2021-12-10 15:19 | XMS_ITS | Encounter Summary ---
:1945 Author Organization [facility] Address [address] [place] [address] Care Team Providers Name Role Phone Corrine Vazquez MD Primary Care Provider Reason for Visit Reason Comments urine symptoms pressure, vaginal drainage: yellow/lt brown, no burning with urination, pain on and off, slow stream Encounter Details Date Type Department Care Team Description 08/16/2019 Office Visit [place] Radha Sharma UTI symptoms (Primary Dx); [address] [place] Vaginal discharge; [place], [place] [address] Social History Tobacco Use Types Packs/Day Years [...] PO) Take by mouth Contains Zinc per Order Manager. ??? nitroglycerin (NITROSTAT) 0.4 MG SL [...] Peter Ramesh (02/05/2021 Abbie Murray, 11:19 AM SPLASH LINE OPERATOR) RN Note: Formatting of this note is differe nt from the original. Routine Health Management Care Team Patient Care Team: Corrine Vazquez MD as PCP - General (F amily Medicine) Yossi Potts RN as Registered Nurse (Diabetes Education) Abbie Ramesh RN as Cook'S Assistant Future Scheduled Appointments No future appointments. [...] and WN only) (08/16/2019 10:11 AM CDT) [facility] Method Time Signature Rapid NEGATIVE Negative 08/16/2019 [facility] Trichomonas 10:26 AM [place] Test CDT Yeast, Wet Prep NEGATIVE Negative 08/16/2019 [place] 4:04 PM [facility]OR[facility]ORY Clue Cells, Wet NONE SEEN None Seen 08/16/2019 [place] Prep /hpf 4:04 PM [facility] WBC, Wet Prep MODERATE (A) None Seen 08/16/2019 [place] /hpf 4:04 PM T [facility]OR[facility] Specimen Anatomical Collection Method Collection Time Receive d Time (Source) Location / / Volume Laterality Swab 08/16/2019 10:11 08/16/2019 AM CDT 10:16 AM CDT Radha Sharma MD LAB BODY FLUIDS AND STOOLS O RDERABLES Performing Organization Address City/State/ZIP Code Phon e Number [facility] [address] [place] [address] LABORATORY [facility] [address] [place] [address] Add-On Test Request (08/16/2019 9:42 AM CDT) [facility] Method Time Signature Add-on Testing SEE BELOW 08/16/2019 [place] 1:30 PM T [facility] Comment: Urine culture added to [id number] Specimen Anatomical Collection Method Collection Time Receive d Time (Source) Location / / Volume Laterality 08/16/2019 9:42 AM 0 9:42 CDT AM CDT Radha Sharma MD LAB BLOOD ORDERABLES Performing Organization Address City/State/ZIP Code Phon e Number [facility] LABORATORY [address] [place] [address] documented in this encounter Visit Diagnoses Diagnosis UTI symptoms - Primary Vaginal discharge Leukorrhea, not specified as infective Immunization due documented in this encounter Care Teams Sas Clinical Programmer Relationship Specialty Start Date End Date Corrine Vazquez MD PCP - General Family Medicine 07/07/19 08/19/[address] [place] [address] documented as of this encounter
--- OUTSIDE RECORDS SUMMARY | 2021-12-10 15:20 | XMS_ITS | Encounter Summary ---
:1945 Author Organization [facility] Address [address] [place] [address] Care Team Providers Name Role Phone Adriane Patel Ronak ANIMAL CARE TECHNICIAN, DRAW MACHINE OPERATOR Primary Care Provider [phone] Encounter Details Date Type Department Care Team [...] Ramesh Management (02/05/2021 Abbie Murray, 11:19 AM SEWING DEMONSTRATOR) RN Note: Formatting of this note is differe nt from the original. Routine Health Management Care Team Patient Care Team: Corirne Vazquez MD as PCP - [facility] Yossi Potts, RN as Registered Nurse (Diabetes Education) Abbie Ramesh, RN as Qa Automation Developer Future Scheduled Appointments No future appointments. [...] on filedocumented in this encounter Care Teams Certified Composites Technician Relationship Specialty Start Date End Date Adriane Patel, ANIMAL CARE TECHNICIAN, DRAW MACHINE OPERATOR PCP - General 09/22/17 07/06/19 100 [facility] [place] [address] documented as of this encounter
--- OUTSIDE RECORDS SUMMARY | 2021-12-10 15:20 | XMS_ITS | Encounter Summary ---
:1945 Author Organization [facility] Address [address] [place] [address] Care Team Providers Name Role Phone Adriane Patel Ronak RUDDN, LIFE GUARD Primary Care Provider [phone] Encounter Details Date Type Department Care Team Description 04/13/2019 Patient Outreach SE Care Coordination Abbie Ramesh, [address] [place] [address] [place] [address] [place] [address] Social History Tobacco Use Types [...] to discuss: 1. Diabetes-blood sugars 2. Medications E AUDITOR Abbie Ramesh RN - 04/13/2019 11:15 AM CST Care Plan - Care Coordination Contact Date: 04/15/2019 10:30 AM Called for monthly follow up and progress; Left message to call back.. This is second attempt to call this month. When patient returns phone call, would like to discuss: 1. Diabetes-blood sugars 2. Medications E AUDITOR documented in this encounter Plan of Treatment Not on filedocumented as of this encounter Goals Goal Patient Goal Associated Recent Patient-Stated? Author Type Problems Progress Routine Health General No change No Peter Ramesh (02/05/2021 Abbie Murray, 11:19 AM NURSE AUDITOR) RN Note: Formatting of this note is differe nt from the original. Routine Health Management Care Team Patient Care Team: Corrine Vazquez MD as PCP - [facility] ([facility] Yossi Potts RN as Registered Nurse (Diabetes Education) Abbie Ramesh RN as Medicaid Biller Future Scheduled Appointments No future appointments. Health [...] on filedocumented in this encounter Care Teams Junior Java Developer Relationship Specialty Start Date End Date Adriane Patel APRN, LIFE GUARD PCP - General 09/22/17 07/06/19 100 [facility] [place] [address] documented as of this encounter
--- OUTSIDE RECORDS SUMMARY | 2021-12-10 15:20 | XMS_ITS | Encounter Summary ---
:1945 Author Organization [facility] Address [address] [place] [address] Care Team Providers Name Role Phone Adriane Patel Ronak MALT SPECIFICATIONS CONTROL ASSISTANT, CLINICAL STUDIES SPECIALIST Primary Care Provider [phone] Reason for Visit Reason Comments Diabetes Encounter Details Date Type Department Care Team Description 06/13/2019 [facility] SE Endocrinology Bacilio Stewart, Type 2 diabetes mellitus wit h other specified complication, with long-term current use of insulin (HCC) (Primary Dx); [address] [facility] MBBS Mixed hyperlipidemia; [place] [address] [address] [facility] Stage 3 chronic kidney disease (HCC); [phone] [place], [place] Essential hype rtension; [address] Pain of upper abdomen Social History Tobacco [...] water are unavailable, please use alcohol-based hand psychiatric np. Cover your coughs and sneezes with a [...] 06/13/19 Primary care provider: Adriane Patel APRN, CLINICAL STUDIES SPECIALIST Reason for visit: Marcial Adams is a [...] 14 units about a week ago. Our community health educator, Denny Potts, has been in [...] Last eye exam showed no retinopathy in [place]. Dorsal aspectof toes hurts sometimes. Denies any [...] More than three times a week Attends gnosticist service: More than 4 times per year [...] was 35 minutes. Bacilio Stewart MD Staff Rail Technician documented in this encounter Plan of Treatment Not on filedocumented as of this encounter Goals Goal Patient Goal Associated Recent Patient-Stated? Author Type Problems Progress Routine Health General No change No Domitila, Management (02/05/2021 Abbie Murray, 11:19 AM BOX SEALING INSPECTOR) RN Note: Formatting of this note is differe nt from the original. Routine Health Management Care Team Patient Care Team: Corrine Vazquez MD as PCP - General ([facility] Medicine) Yossi Potts, RN as Registered Nurse (Diabetes Education) Abbie Ramesh, ERA as Production Controller Future Scheduled Appointments No future appointments. Health [...] Signature Cholesterol 183 0 - 199 09/06/2019 [facility] mg/dL 3:02 PM [facility] Comment: Recommended by National Cholesterol Education Program (ATP III) -------- Cholesterol Ranges -------- <200 ? Desirable 200-239 ? Borderline high >=240 ? High Triglycerides 234 (A) 0 - 149 mg/dL 09/06/2019 3:02 PM T [facility] Comment: -------- TRIG Ranges -------- <150 ?Normal 150-199 ? Borderline high 200-499 ? High >=500 ? Very high HDL 37 (A) 40 - 60 mg/dL 09/06/2019 3:02 PM T [facility] Comment: -------- HDL Ranges -------- <40 ?Low 40-59 ?Normal >=60 ? Optimal LDL Calculated 99 0 - 99 mg/dL 09/06/2019 3:02 PM CDT [facility] Comment: -------- LDL Ranges -------- <100 ? Optimal 100-129 ?Near optimal/above op timal 130-159 ?Borderline high 160-189 ?High >=190 ?Very high Fasting? Yes 09/06/2019 8:20 AM CDT [facility] Specimen Anatomical Collection Method Collection Time Receive d Time (Source) Location / / Volume Laterality Blood 09/06/2019 8:08 AM 0 1:16 CDT PM CDT Bacilio SETHI LAB BLOOD ORDERABLES Performing Organization Address City/State/ZIP Code Phon e Number [facility] [address] [place] [address] (ABNORMAL) Hemoglobin A1c (09/06/2019 8:08 AM CDT) Analysis Performed At Patho logist Time Signature Hemoglobin A1C 8.3 (H) 4.0 - 5.6 09/06/2019 [facility] % A1C 2:39 PM CDT [facility] Comment: Reference Range 4.0-5.6% is [...] 0 1:16 CDT PM CDT Bacilio Stewart [facility] LAB BLOOD ORDERABLES Performing Organization Address City/State/ZIP Code Phon e Number [facility] [address] [place] [address] (ABNORMAL) Basic metabolic panel (09/06/2019 8:08 AM [...] - 1.2 mg/dL 09/06/2019 8:31 AM CDT [facility] [place] Comment: . BUN 28 (H) 5 - 25 mg/dL 09/06/2019 8:31 AM CDT [facility] [place] Comment: . Glucose 157 (H) 70 - 100 mg/dL 09/06/2019 8:31 AM CDT [facility] [place] Calcium, Total,S 9.7 8.4 - 10.2 mg/dL 09/06/2019 8:31 AM CDT [facility] [place] Comment: . Specimen Anatomical Collection Method Collection Time Receive d Time (Source) Location / / Volume Laterality Blood 09/06/2019 8:08 AM 0 8:20 CDT AM CDT Bacilio Stewart [facility] LAB BLOOD ORDERABLES Performing Organization Address City/[facility]/ZIP Code Phon e Number [facility] [place] [address] [place] [address] (ABNORMAL) Liver panel (09/06/2019 8:08 AM CDT) Analysis Performed At Patho logist Time Signature Total Protein 7.6 6.3 - 8.2 09/06/2019 [facility] g/dL 3:02 PM [facility]T [facility] Albumin, Serum 4.0 3.5 - 5.0 09/06/2019 [facility] g/dL 3:02 PM CDT [facility] Total Bilirubin <0.7 0.1 - 1.0 09/06/2019 [facility] mg/dL 3:02 PM [facility] Bilirubin, <0.1 0.0 - 0.3 09/06/2019 [facility] Direct mg/dL 3:02 PM [facility] AST 28 8 - 43 U/L 09/06/2019 [place] 3:02 PM [facility] Alkaline 99 38 - 128 09/06/2019 [place] Phosphatase U/L 3:02 PM [facility] ALT (SGPT) 52 (H) 0 - 34 U/L 09/06/2019 [place] 3:02 PM [facility] Specimen Anatomical Collection Method Collection Time Receive d Time (Source) Location / / Volume Laterality Blood 09/06/2019 8:08 AM 0 1:16 CDT PM CDT Bacilio DELA CRUZ LAB BLOOD ORDERABLES Performing Organization Address City/State/ZIP Code Phon e Number [facility] [address] [place] [address] documented in this encounter Visit Diagnoses Diagnosis Type 2 diabetes mellitus with other spec ified complication, with long-term current use of insulin (HCC) - Primary Mixed hyperlipidemia Stage 3 chronic kidney disease (HCC) Essential hypertension Unspecified essential hypertension Pain of upper abdomen documented in this encounter Care Teams Healthcare Management Consultant Relationship Specialty Start Date End Date Adriane Patel APRN, CLINICAL STUDIES SPECIALIST PCP - General 09/22/17 07/06/19 100 [place] [address] documented as of this encounter
--- OUTSIDE RECORDS SUMMARY | 2021-12-10 15:20 | XMS_ITS | Encounter Summary ---
:1945 Author Organization [facility] Address [address] [place] [address] Care Team Providers Name Role Phone Adriane Patel Ronak LINOLEUM INSTALLER, ULTRASOUND TESTER Primary Care Provider [phone] Reason for Visit Consultation (Routine) - Closed Specialty Diagnoses / Procedures Referred By Contact Refer red To Contact Diagnoses Medicare annual wellness visit, initial Corrine Vazquez MD Care Coordination [address] [place], [place] [phone] Referral ID Status Reason Start Date Expiration Date Visits V isits Requested Authorized [id number] Closed Specialty 12/23/2018 99 99 Services Required Encounter Details Date Type Department Care Team Description 04/26/2019 Patient Outreach Care Abbie Ramesh and coordination of care (Primary Dx); Aldo Murray RN Type 2 diabetes mellitus with other spec ified complication, with long-term current use of insulin (HCC); [address] [facility] [address] Conjunctivitis of both eyes, unspecified conjunctivitis type; [place], [place] [id number] [place] [address] Stage 3 chronic kidney disease (HCC) [phone] [place] [address] Social History Tobacco Use Types [...] 12/23/2018 organizations such as jew groups, unions, [employer] or athletic groups, or school groups? How [...] 12/18/2019 ??? Fall Risk Performed 12/24/2019 ??? [facility] Annual Wellness 12/24/2019 ??? Colorectal Cancer Screening: Colonoscopy 05/21/2021 ??? HPV Vaccines Aged Out Lifestyle ??? Keep your medical appointments Future Appointments Date Time Provider Department Center 06/13/2019 11:00 AM JOSE DE JESUS [place] [facility] Result Component ? ? Hemoglobin A1c < 7.0 8.8 8.0 8.7 8.5 8.5 Patient will work towards decreasing A1c to 7 within 6 months (June 2019) a.) Patient will check A1C every three months (Should be less than 7.0) b.) Patient will check blood glucose 2 times daily and report to med care manager weekly c.) Patient will take [...] Peter Ramesh (02/05/2021 Abbie Murray, 11:19 AM REPORTS ANALYST) RN Note: Formatting of this note is differe nt from the original. Routine Health Management Care Team Patient Care Team: Corrine Vazquez MD as PCP - General (F amily Medicine) Yossi Potts, RN as Registered Nurse (Diabetes Education) Abbie Ramesh, RN as Fire Inspector Future Scheduled Appointments No future appointments. Health Maintenance Health Maintenance Topic Date Due Urine Protein Screening 05/31/2020 Lipid Panel 09/05/2020 Glaucoma Screening 67+ Yr 12/25/2020 Ophthalmology Exam 12/25/2020 [facility] Annual Wellness 01/12/2021 Hemoglobin [...] (HCC) documented in this encounter Care Teams Auto Clutch Rebuilder Relationship Specialty Start Date End Date Adriane Patel APRN, ULTRASOUND TESTER PCP - General 09/22/17 07/06/[address] [place] [address] documented as of this encounter
--- OUTSIDE RECORDS SUMMARY | 2021-12-10 15:20 | XMS_ITS | Encounter Summary ---
:1945 Author Organization [facility] Address [address] [place] [address] Care Team Providers Name Role Phone Adriane Patel COUNTY HISTORIAN, COMPUTER EDUCATION PROFESSOR Primary Care Provider [phone] Reason for Visit Reason Onset Date Comments mail lab results 06/21/2019 Encounter Details Date Type Department Care Team Description 06/21/2019 Telephone [place] Adriane Patel, mail lab results [address] COUNTY HISTORIAN, COMPUTER EDUCATION PROFESSOR [place], [place] [address] [address] [facility] [address] [phone] [place], [place] [address] Social History Tobacco Use [...] Peter Ramesh (02/05/2021 Abbie Murray, 11:19 AM PAINTER MIRROR) RN Note: Formatting of this note is differe nt from the original. Routine Health Management Care Team Patient Care Team: Corrine Vazquez MD as [facility]CP - [facility] Yossi Potts, RN as Registered Nurse (Diabetes Education) Abbie Ramesh RN as Human Resources Professional Future Scheduled Appointments No future appointments. Health [...] on filedocumented in this encounter Care Teams Airborne Electronics Analyst Relationship Specialty Start Date End Date Adriane Patel, COUNTY HISTORIAN, COMPUTER EDUCATION PROFESSOR PCP - General 09/22/17 07/06/19 100 [facility] [place] [address] documented as of this encounter
--- OUTSIDE RECORDS SUMMARY | 2021-12-10 15:20 | XMS_ITS | Encounter Summary ---
:1945 Author Organization [facility] Address [address] [place] [address] Care Team Providers Name Role Phone Adriane Patel Ronak LATEX FOAM WORKER, CUSTOMS INVESTIGATOR Primary Care Provider [phone] Reason for Visit Reason Comments Med Refill Encounter Details Date Type Department Care Team Description 06/18/2019 Refill SE Endocrinology Bacilio Stewart, Type 2 diabetes mellitus [address] [place] [address] complication, without [phone] [place] [address] insulin ([facility]) Social History Tobacco Use Types [...] Peter Ramesh (02/05/2021 Abbie Murray 11:19 AM CASINO OPERATIONS SUPERVISOR) RN Note: Formatting of this note is differe nt from the original. Routine Health Management Care Team Patient Care Team: Corrine Vazquez MD as PCP - General ([facility]) Yossi Potts, RN as Registered Nurse (Diabetes Education) Abbie Ramesh, ERA as Filter Washer Future Scheduled Appointments No future appointments. Health Maintenance Health Maintenance Topic Date Due Urine Protein Screening 05/31/2020 Lipid Panel 09/05/2020 Glaucoma Screening 67+ Yr 12/25/2020 Ophthalmology Exam 12/25/2020 [facility] [place] Annual Wellness 01/12/2021 Hemoglobin A1C 01/24/2021 Diabetic Foot Exam 03/16/2021 Colorectal Cancer Screening: Colonoscop y 05/21/2021 Fall Risk Performed 06/05/2021 Mammogram 12/03/2021 COVID-19 Vaccine Completed [facility] [place] Pneumococcal Vaccine: <64 Completed [facility] [place] Pneumococcal Vaccine: 65+ Years Com pleted HPV Vaccines Aged Out Notes: Due: Urine Protein screening Eye exam AWV A1C Lipid panel documented as of this encounter Visit Diagnoses Diagnosis Type 2 diabetes mellitus with other spec ified complication, without long-term current use of insulin (HCC) documented in this encounter Care Teams Billet Driller Relationship Specialty Start Date End Date Adriane Patel, LATEX FOAM WORKER, CUSTOMS INVESTIGATOR PCP - General 09/22/17 07/06/19 [address] [place] [address] documented as of this encounter
--- OUTSIDE RECORDS SUMMARY | 2021-12-10 15:20 | XMS_ITS | Encounter Summary ---
:1945 Author Organization [facility] Address [address] [place] [address] Care Team Providers Name Role Phone Adriane Patel Ronak WEED ERADICATOR, STRAP MACHINE OPERATOR AUTOMATIC Primary Care Provider [phone] Reason for Visit Reason Onset Date Comments Ozempic 03/11/2019 Encounter Details Date Type Department Care Team Description 03/11/2019 Telephone Endocrinology Bacilio Stewart MBBS Ozempic [address] [place] [address] [place] [address] [phone] (Wo rk) Social History Tobacco Use Types [...] of above message and verbalized an understanding. AGE CAR DRIVER Telephone Encounter - JOSE DE JESUS [place] - 03/11/2019 3:56 PM CST It is completely up to her whether she wants to take a medication or not, I don't have any problem in either case. If she does not take ozempic, she should continue with the same dose of januvia. AGE CAR DRIVER Telephone Encounter - Rebecca Ibrahim MA - 03/11/2019 2:04 PM CST Patient called and stated that she is not wanting to proceed with Ozempic due to the warnings and side effects. Since her visit she has cut out sweets, carbs, snack between meal. Her fasting BG have been 100-116 Noon 92-127 Supper 98-156 Bedtime 165 2 am 129 Please advise AGE CAR DRIVER documented in this encounter Plan of Treatment Not on filedocumented as of this encounter Goals Goal Patient Goal Associated Recent Patient-Stated? Author Type Problems Progress Routine Health General No change Peter Monzon (02/05/2021 Abbie Murray, 11:19 AM PACKAGE CAR DRIVER) RN Note: Formatting of this note is differe nt from the original. Routine Health Management Care Team Patient Care Team: Corrine Vazquez MD as PCP - General ([facility]) Yossi Potts, RN as Registered Nurse (Diabetes Education) Abbie Ramesh RN as Software Engineer Kernel Future Scheduled Appointments No future appointments. Health [...] on filedocumented in this encounter Care Teams Bedspread Folder Relationship Specialty Start Date End Date Adriane Patel, WEED ERADICATOR, STRAP MACHINE OPERATOR AUTOMATIC PCP - General 09/22/17 07/06/19 100 [facility] [address] documented as of this encounter
--- OUTSIDE RECORDS SUMMARY | 2021-12-10 15:20 | XMS_ITS | Encounter Summary ---
:1945 Author Organization [facility] Address [address] [place] [address] Care Team Providers Name Role Phone Adirane Patel Ronak REFRACTORY MIXER, SECURITY SYSTEMS SPECIALIST Primary Care Provider [phone] Encounter Details Date Type Department Care Team Description 03/01/2019 Lab [place] Type 2 diabetes mellitus wit h [address] other specified complication , [place] [address] without long-term current us e [phone] of insulin (HCC ) Social History Tobacco [...] Ramesh Management (02/05/2021 Abbie Murray, 11:19 AM HEAD OF MERCHANDISE BUYING) RN Note: Formatting of this note is differe nt from the original. Routine Health Management Care Team Patient Care Team: Corrine Vazquez MD as PCP - General ([facility] Medicine) Yossi Potts, RN as Registered Nurse (Diabetes Education) Abbie Ramesh, ERA as Geoint Analyst Future Scheduled Appointments No future appointments. [...] Type 2 diabetes Res ults for this HEAD OF MERCHANDISE BUYING mellitus with other procedur e are in the specified results section . complication, without long-term current use of insulin (HCC) documented in this encounter Results (ABNORMAL) Hemoglobin A1c (03/01/2019 11:39 AM [facility]) Analysis Performed At Patho logist Time Signature Hemoglobin A1C 8.8 (H) 4.0 - 5.6 03/02/2019 [place] % A1C 1:45 PM [facility] Comment: Reference Range 4.0-5.6% [...] Volume Laterality Blood 03/01/2019 11:39 03/02/2019 AM HEAD OF MERCHANDISE BUYING 12:55 PM HEAD OF MERCHANDISE BUYING Bacilio DELA CRUZ LAB BLOOD ORDERABLES Performing Organization Address City/State/ZIP Code Phon e Number [facility] [address] [place] [address] documented in this encounter Visit Diagnoses Diagnosis Type 2 diabetes mellitus with other spec ified complication, without long-term current use of insulin (HCC) documented in this encounter Care Teams Aircraft General Repair Mechanic Relationship Specialty Start Date End Date Adriane Patel, REFRACTORY MIXER, SECURITY SYSTEMS SPECIALIST PCP - General 09/22/17 07/06/[address] [place] [address] documented as of this encounter
--- OUTSIDE RECORDS SUMMARY | 2021-12-10 15:20 | XMS_ITS | Encounter Summary ---
:1945 Author Organization [facility] Address [address] [place] [address] Care Team Providers Name Role Phone Adriane Patel Ronak HYPERION ADMINISTRATOR, TINNER AUTOMATIC Primary Care Provider [phone] Reason for Visit Reason Comments Diabetes 3 month f/u Encounter Details Date Type Department Care Team Description 03/07/2019 Office Visit SE Endocrinology Bacilio Stewart, Type 2 diabetes mellitus wit h other specified complication, with long-term current use of insulin (HCC) (Primary Dx); [address] [facility] SE MBBS Type 2 diabetes mellitus without complic ation, without long-term current use of insulin (HCC); [place] [address] Essential hypertension; [phone] [place], [place] Stage 3 chroni c kidney disease (HCC); [address] Mixed hyperlipidemia; [phone] Rheumatoid arth ritis, involving unspecified site, unspecified [...] Comments Blood Pressure 128/70 03/07/2019 9:55 AM TOOL OR DIE DRAWING CHECKER Pulse 90 03/07/2019 9:55 AM TOOL OR DIE DRAWING CHECKER Temperature 36.4 ??C (97.6 ??F) 03/07/2019 9:55 AM TOOL OR DIE DRAWING CHECKER Respiratory Rate 18 03/07/2019 9:55 AM TOOL OR DIE DRAWING CHECKER Oxygen Saturation - - Inhaled Oxygen Concentration - - Weight 83.9 kg (185 lb) 03/07/2019 9:55 AM TOOL OR DIE DRAWING CHECKER Height 157.5 cm (5' 2) 03/07/2019 9:55 AM TOOL OR DIE DRAWING CHECKER Body Mass Index 33.84 03/07/2019 9:55 AM TOOL OR DIE DRAWING CHECKER documented in this encounter Patient Instructions Patient [...] Follow up in 3 months, with labs. OR DIE DRAWING CHECKER documented in this encounter Progress Notes JOSE [...] insulin, currently Glargine 17 units daily. Our guard sergeant, Denny Potts, has been in touch with [...] Last eye exam showed no retinopathy in [place]. Dorsal aspect of toes hurts sometimes. Denies [...] More than three times a week Attends rastafarian service: More than 4 times per year [...] coordination of care. Bacilio Stewart MD Staff Sub Acute Care Nurse OR DIE DRAWING CHECKER Adriane Patel APRN, CNP - 03/07/2019 10:00 AM CST Reviewed. OR DIE DRAWING CHECKER documented in this encounter Plan of Treatment Not on filedocumented as of this encounter Goals Goal Patient Goal Associated Recent Patient-Stated? Author Type Problems Progress Routine Health General No change No Peter Ramesh (02/05/2021 Abbie Murray, 11:19 AM TOOL OR DIE DRAWING CHECKER) RN Note: Formatting of this note is differe nt from the original. Routine Health Management Care Team Patient Care Team: Corrine Vazquez MD as PCP - General ([facility] Medicine) Yossi Potts, RN as Registered Nurse (Diabetes Education) Abbie Ramesh RN as Salvage Repairer Future Scheduled Appointments No future appointments. [...] 148 mg/dL 06/01/2019 12:50 PM CD T [facility] Comment: No established reference range. Microalb/Creat Ratio 10 0 - 24 mg/g 06/01/2019 12: 50 PM CDT [facility] Specimen Anatomical Collection Method Collection Time Receive d Time (Source) Location / / Volume Laterality Urine 06/01/2019 8:50 AM 0 CDT 12:11 PM CDT Bacilio Stewart [facility] LAB URINE ORDERABLES Performing Organization Address City/State/ZIP Code Phon e Number [facility] [address] [place] [address] (ABNORMAL) Basic metabolic panel (06/01/2019 8:48 AM CDT) P athologist Signature Sodium 140 135 - 145 06/01/2019 [facility] mmol/L 10:10 AM CDT [place] Potassium 4.0 3.5 - 5.1 06/01/2019 [facility] mmol/L 10:10 AM CDT [place] Comment: . Chloride 104 98 - 107 mmol/L 06/01/2019 10:10 AM CDT [facility] [place] Comment: . CO2 29 22 - 29 mmol/L 06/01/2019 10:10 AM CDT [facility] [place] Comment: . Creatinine 1.3 (H) 0.4 - 1.2 mg/dL 06/01/2019 10:10 AM CDT [facility] [place] Comment: . BUN 32 (H) 5 - 25 mg/dL 06/01/2019 10:10 AM CDT [facility] [place] Comment: . Glucose 209 (H) 70 - 100 mg/dL 06/01/2019 10:10 AM [facility] [place] CDT Calcium, Total,S 9.7 8.4 - 10.2 mg/dL 06/01/2019 10:10 AM [facility] [place] CDT Comment: . Fasting? No 06/01/2019 8:48 AM CDT [facility] [place] Specimen Anatomical Collection Method Collection Time Receive d Time (Source) Location / / Volume Laterality Blood 06/01/2019 8:48 AM 0 8:48 CDT AM CDT Bacilio [facility] LAB BLOOD ORDERABLES Performing Organization Address City/State/ZIP Code Phon e Number [facility] [place] [address] [place] [address] (ABNORMAL) Hemoglobin A1c (06/01/2019 8:48 AM CDT) Analysis Performed At Patho logist Time Signature Hemoglobin A1C 8.5 (H) 4.0 - 5.6 06/01/2019 [facility] % A1C 12:37 PM CDT [facility] Comment: Reference Range 4.0-5.6% [...] [facility] [address] [place] [address] documented in this encounter Visit Diagnoses Diagnosis [...] presence documented in this encounter Care Teams Director Of Analytical Development Relationship Specialty Start Date End Date Adriane Patel, HYPERION ADMINISTRATOR, TINNER AUTOMATIC PCP - General 09/22/17 07/06/19 [address] [place] [address] documented as of this encounter
--- OUTSIDE RECORDS SUMMARY | 2021-12-10 15:20 | XMS_ITS | Encounter Summary ---
:1945 Author Organization [facility] Address [address] [place] [address] Care Team Providers Name Role Phone Adriane Patel MESSENGER OFFICE, QUARRY EXTRACTION WORKER Primary Care Provider [phone] Encounter Details Date Type Department Care Team Description 06/22/2019 Refill [place] Adriane Patel, Hypothyroidism, [address] MESSENGER OFFICE, QUARRY EXTRACTION WORKER unspecified type [place] [address] [address] [phone] [place], [place] [address] Social History Tobacco Use [...] 06/22/2019 9:25 AM CDT Please refill to [facility]. documented in this encounter Plan of Treatment Not on filedocumented as of this encounter Goals Goal Patient Goal Associated Recent Patient-Stated? Author Type Problems Progress Routine Health General No change No Domitila, Management (02/05/2021 Abbie Murray, 11:19 AM RECORD SEARCHER) RN Note: Formatting of this note is differe nt from the original. Routine Health Management Care Team Patient Care Team: Corrine Vazquez MD as PCP - [facility] ([facility] Yossi Potts, RN as Registered Nurse (Diabetes Education) Abbie Ramesh, ERA as Sql Architect Future Scheduled Appointments No future appointments. Health [...] type documented in this encounter Care Teams Carpet Technician Relationship Specialty Start Date End Date Adriane Patel, MESSENGER OFFICE, QUARRY EXTRACTION WORKER PCP - General 09/22/17 07/06/19 100 [place] [address] documented as of this encounter
--- OUTSIDE RECORDS SUMMARY | 2021-12-10 15:20 | XMS_ITS | Encounter Summary ---
:1945 Author Organization [facility] Address [address] [place] [address] Care Team Providers Name Role Phone Adriane Patel MONEY ROOM TELLER, BREAKDOWN MAN Primary Care Provider [phone] Reason for Visit Reason Comments Med Refill Encounter Details Date Type Department Care Team Description 04/16/2019 Refill [place] Adriane Patel, Anxiety (Primary Dx) [address] MONEY ROOM TELLER, BREAKDOWN MAN [place], [place] [address] [address] [facility] [address] [phone] [place], [place] [address] Social History Tobacco Use [...] encounter Miscellaneous Notes Telephone Encounter - Luciana Verean - 04/18/2019 1:53 PM CST Rx faxed to [facility] as requested. DIRECTOR Telephone Encounter - Lana Knight LPN - 04/18/2019 1:25 PM CST Please fax to [facility] DIRECTOR Telephone Encounter - Adriane Patel APRN, LEONARD - 04/18/2019 1:04 PM IT DIRECTOR Completed. Suresh Cm DIRECTOR Telephone Encounter - Huma Reich MA - [...] Last 2 Encounters: 03/07/19 128/70 12/23/18 152/82 DIRECTOR documented in this encounter Plan of Treatment Not on filedocumented as of this encounter Goals Goal Patient Goal Associated Recent Patient-Stated? Author Type Problems Progress Routine Health General No change Hailee Ramesh Management (02/05/2021 Abbie Murray, 11:19 AM IT DIRECTOR) RN Note: Formatting of this note is differe nt from the original. Routine Health Management Care Team Patient Care Team: Corrine Vazquez MD as PCP - General ([facility]) Yossi Potts, RN as Registered Nurse (Diabetes Education) Abbie Ramesh, ERA as Casino Enforcement Agent Future Scheduled Appointments No future appointments. Health [...] unspecified documented in this encounter Care Teams Winder Tender Relationship Specialty Start Date End Date Adriane Patel, MONEY ROOM TELLER, BREAKDOWN MAN PCP - General 09/22/17 07/06/19 100 [facility] [place] [address] documented as of this encounter
--- OUTSIDE RECORDS SUMMARY | 2021-12-10 15:20 | XMS_ITS | Encounter Summary ---
:1945 Author Organization [facility] Address [address] [place] [address] Care Team Providers Name Role Phone Adriane Patel SEPTIC TANK SERVICE TECHNICIAN, HAMMER FITTER Primary Care Provider [phone] Reason for Visit Reason Comments Med Refill Encounter Details Date Type Department Care Team Description 04/12/2019 Refill [place] Adriane Patel, Mixed hyperlipidemia [address] LEONARD RESENDEZ (Primary Dx) [place], [place] [address] [phone] [place], [place] [address] Social History Tobacco Use [...] half tablet once daily (2.5mg per day) IC RELATIONS MANAGER Telephone Encounter - Ifeoma Parikh LPN - [...] advise pharmacy on refill request. Thank you IC RELATIONS MANAGER documented in this encounter Plan of Treatment Not on filedocumented as of this encounter Goals Goal Patient Goal Associated Recent Patient-Stated? Author Type Problems Progress Routine Health General No change Peter Monzon (02/05/2021 Abbie Murray, 11:19 AM PUBLIC RELATIONS MANAGER) RN Note: Formatting of this note is differe nt from the original. Routine Health Management Care Team Patient Care Team: Corrine Vazquez MD as PCP - General ([facility]) Yossi Potts, RN as Registered Nurse (Diabetes Education) Abbie Ramesh RN as Drafter (Cad) Electronic Future Scheduled Appointments No future appointments. Health [...] [facility] Pneumococcal Vaccine: <64 Completed OM Pneumococcal Vaccine: 65+ Years Com pleted HPV Vaccines Aged Out Notes: Due: Urine Protein screening Eye exam AWV A1C Lipid panel documented as of this encounter Visit Diagnoses Diagnosis Mixed hyperlipidemia - Primary documented in this encounter Care Teams Director Of Accounts Receivable Relationship Specialty Start Date End Date Adriane Patel APRN, HAMMER FITTER PCP - General 09/22/17 07/06/19 [address] [place] [address] documented as of this encounter
--- OUTSIDE RECORDS SUMMARY | 2021-12-10 15:20 | XMS_ITS | Encounter Summary ---
:1945 Author Organization [facility] Address [address] [place] [address] Care Team Providers Name Role Phone Adriane Patel Ronak SHOOK SPLICER, CUSTODIAN Primary Care Provider [phone] Encounter Details Date Type Department Care Team Description 06/01/2019 [place] Type 2 diabetes mellitus wit h other specified complication, with long-term current use of insulin ([facility] [address] Essential hypertension; [place], [place] [address] Stage 3 chronic kidney disea ([facility]) [phone] Social History Tobacco Use Types Packs/Day Years [...] Peter Ramesh (02/05/2021 Abbie Murray, 11:19 AM ZOOLOGY TECHNICAL OFFICER) RN Note: Formatting of this note is differe nt from the original. Routine Health Management Care Team Patient Care Team: Corrine Vazquez MD as PCP - General ([facility] Medicine) Yossi Potts, RN as Registered Nurse (Diabetes Education) Abbie Ramesh RN as Talking Books Library Clerk Future Scheduled Appointments No future appointments. [...] Signature Microalbumin,m 15.3 0.0 - 16.6 06/01/2019 [facility] g/day mg/L 12:50 PM CDT [facility] Comment: . Creatinine, Urine 148 mg/dL 06/01/2019 12:50 PM CD T [facility] Comment: No established reference range. Microalb/Creat Ratio 10 0 - 24 mg/g 06/01/2019 12: 50 PM CDT [facility] Specimen Anatomical Collection Method Collection Time Receive d Time (Source) Location / / Volume Laterality Urine 06/01/2019 8:50 AM 0 CDT 12:11 PM CDT Bacilio [place] LAB URINE ORDERABLES Performing Organization Address City/[facility] Phon e Number [facility] [address] [place] [id number] (ABNORMAL) Glomerular filtration rate (GFR) (06/01/2019 8:48 AM CDT) athologist Signature GFR 40 (A) 06/01/2019 [facility] 10:10 AM CDT [facility] 49 (A) 06/01/2019 [facility] Latvian GFR 10:10 AM CDT [facility] Comment: [...] CRU[facility] LAB BLOOD ORDERABLES Performing Organization Address City/[facility] Phon e Number [facility] [address] [place] [address] (ABNORMAL) Hemoglobin A1c (06/01/2019 8:48 AM CDT) [...] Organization Address City/State/ZIP Code Phon e Number [facility] [address] [place] [phone] (ABNORMAL) Basic metabolic panel (06/01/2019 8:48 AM CDT) P athologist Signature Sodium 140 135 - 145 06/01/2019 [facility] [place] mmol/L 10:10 AM CDT [place] Potassium 4.0 3.5 - 5.1 06/01/2019 [facility] [place] mmol/L 10:10 AM CDT [place] Comment: . Chloride 104 98 - 107 mmol/L 06/01/2019 10:10 AM CDT [facility] [place] [place] Comment: . CO2 29 22 - 29 mmol/L 06/01/2019 10:10 AM CDT O [facility] [place] Comment: . Creatinine 1.3 (H) 0.4 - 1.2 mg/dL 06/01/2019 10:10 AM CDT [facility] [place] Comment: . BUN 32 (H) 5 - 25 mg/dL 06/01/2019 10:10 AM CDT [facility] [place] Comment: . Glucose 209 (H) 70 - 100 mg/dL 06/01/2019 10:10 AM [facility] [place] CDT Calcium, Total,S 9.7 8.4 - 10.2 mg/dL 06/01/2019 10:10 AM [facility] [place] CDT Comment: . Fasting? No 06/01/2019 8:48 AM CDT [facility] [place]IE [place] Specimen Anatomical Collection Method Collection Time Receive d Time (Source) Location / / Volume Laterality Blood 06/01/2019 8:48 AM 0 8:48 CDT AM CDT Bacilio [place] LAB BLOOD ORDERABLES Performing Organization Address City/State/ZIP Code Phon e Number [facility] [place] [address] [place] [address] documented in this encounter Visit Diagnoses Diagnosis Type 2 diabetes mellitus with other spec ified complication, with long-term current use of insulin (HCC) Essential hypertension Unspecified essential hypertension Stage 3 chronic kidney disease (HCC) documented in this encounter Care Teams Lug Loader Relationship Specialty Start Date End Date Adriane Patel APRN, CUSTODIAN PCP - General 09/22/17 07/06/[address] [place] [address] [place] [address] documented as of this encounter
--- OUTSIDE RECORDS SUMMARY | 2021-12-10 15:20 | XMS_ITS | Encounter Summary ---
:1945 Author Organization [facility] Address [address] [place] [address] Care Team Providers Name Role Phone Corrine Vazquez MD Primary Care Provider Reason for Visit Consultation (Routine) - Closed Specialty Diagnoses / Procedures Referred By Contact Refer red To Contact Diagnoses Medicare annual wellness visit, initial Corrine Vazquez MD Care Coordination [address] [place], [place] [phone] Referral ID Status Reason Start Date Expiration Date Visits V isits Requested Authorized [id number] Closed Specialty 12/23/2018 99 99 Services Required Encounter Details Date Type Department Care Team Description 07/06/2019 Patient Outreach SE Care Coordination Abbie Ramesh Counseling and coordination of care (Primary Dx); [address] [facility] Terri RN Type 2 diabetes mellitus with other spec ified complication, with long-term current use of insulin ([facility]); [place] [address] [address] Rheumatoid arthritis, involv ing unspecified site, unspecified rheumatoid factor presence ([facility]); [phone] [facility] Rheumatoid arthritis, involving unspecif ied site, unspecified whether rheumatoid factor present ([facility] [place] [address] Social History Tobacco Use Types [...] [facility] Annual Wellness 12/24/2019 ??? Lipid Panel 03/17/2020 ??? Urine Protein Screening 05/31/2020 ??? Colorectal Cancer Screening: Colonoscopy 05/21/2021 ??? HPV Vaccines Aged Out Lifestyle ??? Keep your medical appointments On track On track Future Appointments Date Time Provider Department Center 09/06/2019 8:00 AM [facility] [place] [facility] 1 [place] 09/12/2019 10:00 AM JOSE DE JESUS [place] [facility] Result Component ? ? Hemoglobin A1c < 7.0 8.5 8.8 8.0 Patient will work towards decreasing A1c to 7 within 3 months (Sep 2019) (8.2 05/31/19) a.) Patient will check A1C every three months (Should be less than 7.0) b.) Patient will check blood glucose 2 times daily and report to director of primary care weekly c.) Patient will take medication [...] Peter Monzon (02/05/2021 Abbie Murray, 11:19 AM CELL BUILDER) RN Note: Formatting of this note is differe nt from the original. Routine Health Management Care Team Patient Care Team: Corrine Vazquez MD as PCP - General (F [facility] Medicine) Yossi Potts, RN as Registered Nurse (Diabetes Education) Abbie Ramesh, RN as Insect Control Inspector Future Scheduled Appointments No future appointments. [...] 11:17 AM No Abbie Ramesh, RN CELL BUILDER) Note: Formatting of this note is differe [...] (HCC) documented in this encounter Care Teams Water Sander Relationship Specialty Start Date End Date Corrine Vazquez MD PCP - General Family Medicine 07/07/19 08/19/21 1705 [facility] [address] [place] [address] documented as of this encounter
--- OUTSIDE RECORDS SUMMARY | 2021-12-10 15:20 | XMS_ITS | Encounter Summary ---
:1945 Author Organization [facility] Address [address] [place] [address] Care Team Providers Name Role Phone Adriane Patel SCIENTIFIC INFORMATICS ANALYST, THREAD DRESSER Primary Care Provider [phone] Reason for Visit Consultation (Routine) - Closed Specialty Diagnoses / Procedures Referred By Contact Refer red To Contact Diagnoses Medicare annual wellness visit, initial Corrine Vazquez MD Care Coordination [address] [place], [place] [phone] Referral ID Status Reason Start Date Expiration Date Visits V isits Requested Authorized [id number] Closed Specialty 12/23/2018 99 99 Services Required Encounter Details Date Type Department Care Team Description 03/01/2019 Patient Outreach SE Care Coordination Abbie Ramesh Counseling and coordination of care (Primary Dx); [address] [facility] Terri RN Type 2 diabetes mellitus with other spec ified complication, with long-term current use of insulin ([facility]); [place] [address] [address] Rheumatoid arthritis, involv ing unspecified site, unspecified rheumatoid factor presence ([facility]) [phone] [place] [address] Social History Tobacco Use Types [...] 12/23/2018 organizations such as latter day groups, [employer], [employer] or athletic groups, or school groups? How [...] 12/18/2019 ??? Fall Risk Performed 12/24/2019 ??? [facility] [place]ness 12/24/2019 ??? Colorectal Cancer Screening: Colonoscopy 05/21/2021 ??? HPV Vaccines Aged Out Lifestyle ??? Keep your medical appointments Future Appointments Date Time Provider Department Center 03/07/2019 10:00 AM JOSE DE JESUS [place] [facility] Result Component ? ? Hemoglobin A1c < 7.0 8.0 8.7 8.5 8.5 9.0 Patient will work towards decreasing A1c to 7 within 6 months (June 2019) a.) Patient will check A1C every three months (Should be less than 7.0) b.) Patient will check blood glucose 2 times daily and report to career services director weekly c.) Patient will take medication as prescribed d.) Patient will exercise for 5 minutes 2 days per week e.) Patient will maintain a food diary f.) Patient will weigh daily and record g.) Patient will follow up with Endocrine Dr Stewart h.) Patient will schedule a foot exam: done i.) Patient will schedule an eye exam: done MINE INSPECTOR documented in this encounter Plan of Treatment Not on filedocumented as of this encounter Goals Goal Patient Goal Associated Recent Patient-Stated? Author Type Problems Progress Routine Health General No change No Peter Ramesh (02/05/2021 Abbie Murray, 11:19 AM COAL MINE INSPECTOR) RN Note: Formatting of this note is differe nt from the original. Routine Health Management Care Team Patient Care Team: Corrine Vazquez MD as PCP - General (F am[facility] Medicine) Yossi Potts, RN as Registered Nurse (Diabetes Education) Abbie Ramesh, ERA as Ordnance Engineer Future Scheduled Appointments No future appointments. [...] presence documented in this encounter Care Teams Infection Control Manager Relationship Specialty Start Date End Date Adriane Patel, SCIENTIFIC INFORMATICS ANALYST, THREAD DRESSER PCP - General 09/22/17 07/06/19 100 [place] [address] documented as of this encounter
--- OUTSIDE RECORDS SUMMARY | 2021-12-10 15:21 | XMS_ITS | Encounter Summary ---
:1945 Author Organization [facility] Address [address] [place] [address] Care Team Providers Name Role Phone Adriane Patel Ronak PRECISION LENS CENTERER AND EDGER, NECK PINNER Primary Care Provider [phone] Reason for Visit Reason Comments Female Dysuria Encounter Details Date Type Department Care Team Description 12/23/2018 Office Visit [place] Corrine Herrera Frequency of micturition (Pr imary Dx); [address] MD [place] Raynaud's disease without gangrene [place], [place] [address] 0829 [facility] [address] [place] [address] Social History Tobacco Use Types Packs/Day Years [...] Comments Blood Pressure 152/82 12/23/2018 9:04 AM PASSENGER ATTENDANT Pulse 72 12/23/2018 9:04 AM PASSENGER ATTENDANT Temperature 36.1 ??C (97 ??F) 12/23/2018 9:04 AM PASSENGER ATTENDANT Respiratory Rate 12 12/23/2018 9:04 AM PASSENGER ATTENDANT Oxygen Saturation - - Inhaled Oxygen Concentration - - Weight 83.2 kg (183 lb 8 oz) 12/23/2018 9:04 AM PASSENGER ATTENDANT Height - - Body Mass Index 31.91 [...] history of rheumatoid arthritis she sees a gunstock spray unit adjuster once a month for thisfor her infusions and we have asked her to discuss with the gunstock spray unit adjuster the potential that she has Raynaud's which I suspect she does in the treatment for that is usually verapamil and if this is confirmed from the gunstock spray unit adjuster we could certainly start her on the [...] in discussion of the above 2 concerns. ENGER ATTENDANT documented in this encounter Miscellaneous Notes Addendum Note - Corrine Herrera MD - 12/23/2018 9:00 AM PASSENGER ATTENDANT Addended by: Corrine HERRERA on: 12/25/2018 10:03 AM Modules accepted: Orders ENGER ATTENDANT documented in this encounter Plan of Treatment Not on filedocumented as of this encounter Goals Goal Patient Goal Associated Recent Patient-Stated? Author Type Problems Progress Routine Health General No change Peter Monzon (02/05/2021 Abbie Murray, 11:19 AM PASSENGER ATTENDANT) RN Note: Formatting of this note is differe nt from the original. Routine Health Management Care Team Patient Care Team: Corrine Herrera MD as PCP - General ([facility]) Yossi Potts, RN as Registered Nurse (Diabetes Education) Abbie Ramesh RN as Warehouse Team Member Future Scheduled Appointments No future appointments. Health Maintenance Health Maintenance Topic Date Due Urine Protein Screening 05/31/2020 Lipid Panel 09/05/2020 Glaucoma Screening 67+ Yr 12/25/2020 Ophthalmology Exam 12/25/2020 [facility] Annual Wellness 01/12/2021 Hemoglobin A1C 01/24/2021 Diabetic Foot Exam 03/16/2021 Colorectal Cancer Screening: Colonoscop y 05/21/2021 Fall Risk Performed 06/05/2021 Mammogram 12/03/2021 COVID-19 Vaccine Completed [facility] Pneumococcal Vaccine: <64 Completed [facility] Pneumococcal Vaccine: 65+ Years Com pleted HPV Vaccines Aged Out Notes: Due: Urine Protein screening Eye exam AWV A1C Lipid panel documented as of this encounter Results (ABNORMAL) Urine culture (clean catch) (12/23/2018 9:58 AM PASSENGER ATTENDANT) [email or web address] Method Time Signature Urine Culture Escherichia coli 12/25/2018 [place] 15,000 cfu/ml 9:15 AM PASSENGER ATTENDANT [facility] Specimen Anatomical Collection Method Collection Time Receive d Time (Source) Location / / Volume Laterality Urine, Clean 12/23/2018 9:58 AM 9 Catch PASSENGER ATTENDANT 12:18 PM PASSENGER ATTENDANT Narrative [facility] - 10/2018 9:16 AM PASSENGER ATTENDANT Patient does not have an Amoxicillin or [...] [facility] [address] [place] [address] (ABNORMAL) Urinalysis with reflex microscopic (12/23/2018 9:58 AM PASSENGER ATTENDANT) [facility] Method Time Signature Type CLEAN CATCH 12/23/2018 [facility] [place] 10:24 AM PASSENGER ATTENDANT [place] Color, Urine YELLOW YELLOW 12/23/2018 [facility] [place] 10:24 AM PASSENGER ATTENDANT [place] Clarity, CLEAR CLEAR 12/23/2018 [facility] [place] Urine 10:24 AM PASSENGER ATTENDANT [place] Glucose, NEGATIVE NEGATIVE 12/23/2018 [facility] [place] Urine mg/dL 10:24 AM PASSENGER ATTENDANT [place] Bilirubin, NEGATIVE NEGATIVE 12/23/2018 [facility] [place] Urine 10:24 AM PASSENGER ATTENDANT [place] Ketones, NEGATIVE NEGATIVE 12/23/2018 [facility] Urine mg/dL 10:24 AM PASSENGER ATTENDANT [place] Specific 1.020 1.000 12/23/2018 [facility] [place], ->=1.030 10:24 AM PASSENGER ATTENDANT [place] Urine Blood, Urine NEGATIVE NEGATIVE 12/23/2018 [facility] [place] 10:24 AM PASSENGER ATTENDANT [place] pH, Urine 5.5 5.0 - 7.0 12/23/2018 [facility] [place] 10:24 AM PASSENGER ATTENDANT [place] Protein, NEGATIVE NEGATIVE-TRA 12/23/2018 [facility] [place] Urine CE mg/dL 10:24 AM PASSENGER ATTENDANT [place] Urobilinogen, 0.2 0.2 - 1.0 12/23/2018 [facility] [place] Urine E.U./dL 10:24 AM PASSENGER ATTENDANT [place] Nitrite, NEGATIVE NEGATIVE 12/23/2018 [facility] [place] Urine 10:24 AM PASSENGER ATTENDANT [place] Leukocytes, TRACE (A) NEGATIVE 12/23/2018 [facility] [place] Urine 10:24 AM PASSENGER ATTENDANT [place] Specimen Anatomical Collection Method Collection Time Receive d Time (Source) Location / / Volume Laterality Urine (Urine, 12/23/2018 9:58 AM 12/24/19 19 9:58 Clean Catch) PASSENGER ATTENDANT AM PASSENGER ATTENDANT D. Lincoln Herrera MD LAB URINE ORDERABLES Performing Organization Address City/State/ZIP Code Phon e Number [facility] [place] [address] [place] [address] documented in this encounter Visit Diagnoses Diagnosis Frequency of micturition - Primary Urinary frequency Raynaud's disease without gangrene Frequency of micturition Urinary frequency documented in this encounter Care Teams Mangle Tender Cloth Relationship Specialty Start Date End Date Adriane Patel, PRECISION LENS CENTERER AND EDGER, NECK PINNER PCP - General 09/22/17 07/06/19 [address] [place] [address] documented as of this encounter
--- OUTSIDE RECORDS SUMMARY | 2021-12-10 15:21 | XMS_ITS | Encounter Summary ---
:1945 Author Organization [facility] Address [address] [place] [address] Care Team Providers Name Role Phone Adriane Patel HIGHWAY PAINTER, PATROL CONDUCTOR Primary Care Provider [phone] Reason for Visit Reason Comments Nasal Congestion Cough Encounter Details Date Type Department Care Team Description 11/23/2018 Office Visit [place]ie [place] Carl Stinson MD Acute non-recurrent sinusiti s, unspecified location (Primary Dx); [address] Adriane Patel, HIGHWAY PAINTER, PATROL CONDUCTOR [address] [place] [address] Conjunctivitis of both eyes, [place] [address] Social History Tobacco Use Types Packs/Day Years [...] each, Rfl: 3 ??? ACCU-CHEK FASTCLIX LANCETS [facility], Check blood glucose 4 times a day, [...] hours while awake. The patient willcontact her osha inspector, to determine if they will continue [...] type documented in this encounter Care Teams Invoice Machine Operator Relationship Specialty Start Date End Date Adriane Patel APRN, PATROL CONDUCTOR PCP - General 09/22/17 07/06/[address] [place] [address] documented as of this encounter
--- OUTSIDE RECORDS SUMMARY | 2021-12-10 15:21 | XMS_ITS | Encounter Summary ---
:1945 Author Organization [facility] Address [address] [place] [address] Care Team Providers Name Role Phone Adriane Patel Ronak ABSTRACT WRITER, LIBRARY TECHNICIAN Primary Care Provider [phone] Reason for Visit Consultation (Routine) - Closed Specialty Diagnoses / Procedures Referred By Contact Refer red To Contact Diagnoses Medicare annual wellness visit, initial Corrine Vazquez MD Care Coordination [address] [place] [address] [place] [address] 5 [phone] Referral ID Status Reason Start Date Expiration Date Visits V isits Requested Authorized [id number] Closed Specialty 12/23/2018 99 99 Services Required Encounter Details Date Type Department Care Team Description 01/24/2019 Patient Outreach SE Care Coordination Corrine Vazquez MD [address] [place] [address] Counseling and coordination of care (Terrie salcedo Dx); [address] [place] [address] Abbie Ramesh RN [address] [place] [phone] Type 2 diabetes mellitus with other spec ified complication, with long-term current use of insulin ([facility]) [place] [address] Social History Tobacco Use Types [...] Coordination Discussion Date: 01/24/2019 3:42 PM Completed [facility] monthly follow up with Marcial Medication reviewed. [...] [facility]ness 12/24/2019 ??? Colorectal Cancer Screening: Colonoscopy 05/21/2021 Lifestyle ??? Keep your medical appointments Future Appointments Date Time Provider Department Center 03/02/2019 10:00 AM [place] [facility] [place] 03/07/2019 9:00 AM JOSE DE JESUS [facility] Result Component ? ? Hemoglobin A1c < [...] Patient will schedule an eye exam: done S REPRESENTATIVE GRAPHIC ART documented in this encounter Plan of Treatment Scheduled Referrals Name Type Priority Associated Order Schedule Diagnoses Ambulatory referral Outpatient Referral Routine Medicare corie rodgers Ordered: to Care Coordination wellness visit, 08/2018 initial documented as of this encounter Goals Goal Patient Goal Associated Recent Patient-Stated? Author Type Problems Progress Routine Health General No change No Domitila Management (02/05/2021 Abbie Murray, 11:19 AM SALES REPRESENTATIVE GRAPHIC ART) RN Note: Formatting of this note is differe nt from the original. Routine Health Management Care Team Patient Care Team: Corrine Vazquez MD as PCP - General ([facility] Medicine) Yossi Potts, RN as Registered Nurse (Diabetes Education) Abbie Ramesh RN as Clutch Rebuilder Future Scheduled Appointments No future appointments. Health Maintenance Health Maintenance Topic Date Due Urine Protein Screening 05/31/2020 Lipid Panel 09/05/2020 Glaucoma Screening 67+ Yr 12/25/2020 Ophthalmology Exam 12/25/2020 [facility] Annual Wellness 01/12/2021 Hemoglobin A1C 01/24/2021 Diabetic [...] (HCC) documented in this encounter Care Teams Dog Warden Relationship Specialty Start Date End Date Adriane Patel, ABSTRACT WRITER, LIBRARY TECHNICIAN PCP - General 09/22/17 07/06/19 100 [place] [address] documented as of this encounter
--- OUTSIDE RECORDS SUMMARY | 2021-12-10 15:21 | XMS_ITS | Encounter Summary ---
:1945 Author Organization [facility] Address [address] [place] [address] Care Team Providers Name Role Phone Adriane Patel Ronak LEAN MANUFACTURING COORDINATOR, RENTAL AGENT Primary Care Provider [phone] Encounter Details Date Type Department Care Team Description 12/23/2018 [facility] Frequency of micturition [address] [place], [place] [address] Social History Tobacco Use [...] Peter Ramesh (02/05/2021 Abbie Murray, 11:19 AM GOVERNMENT INSTRUCTOR) RN Note: Formatting of this note is differe nt from the original. Routine Health Management Care Team Patient Care Team: Corrine Vazquez MD as PCP - [facility] Yossi Potts, RN as Registered Nurse (Diabetes Education) Abbie Ramesh, RN as Archives Specialist Future Scheduled Appointments No future appointments. [...] R esults for this IC EXAM (REFLEXED) GOVERNMENT INSTRUCTOR micturition procedure are in the results section. URINALYSIS WITH Routine 12/23/2018 9:58 AM Frequency of Result s for this REFLEX MICROSCOPIC GOVERNMENT INSTRUCTOR micturition procedure are in the results section. URINE CULTURE Routine 12/23/2018 9:58 AM Frequency of Results for this GOVERNMENT INSTRUCTOR micturition procedure are i n the results section. documented in this encounter Results Urinalysis-Microscopic Exam (12/23/2018 9:58 AM GOVERNMENT INSTRUCTOR) [facility] Method Time Signature Casts, urine NONE SEEN 0-2 Hyaline 12/24/2018 IB[facility] /lpf 12:59 PM [facility] Significant NONE SEEN None Seen 12/24/2018 [facility] casts, urine /lpf 12:59 PM [facility] RBC, Urine NONE SEEN 0 - 3 /hpf 12/24/2018 IBIS 12:59 PM [facility] WBC, Urine 4-10 /hpf 12/24/2018 IBIS 12:59 PM [facility] Comment: Male Ref Range ? 0-3/hpf Female Ref Range ?? 0-10/hpf WBC Clumps Present. Squamous Epithelial, FEW Few /lpf 12/24/2018 12:59 PM [facility] Urine [facility] Trans Epithelial, NONE SEEN 0 - 3 /hpf 12/24/2018 12:59 PM [facility] Urine [facility] Renal Tubular Cells, NONE SEEN 0 - 1 /hpf 12/24/2018 12:59 P M [facility] Urine [facility] Bacteria, Urine NONE SEEN None Seen 12/24/2018 12:59 PM [facility] Specimen Anatomical Collection Method Collection Time Receive d Time (Source) Location / / Volume Laterality 12/23/2018 9:58 AM 9 GOVERNMENT INSTRUCTOR 12:18 PM GOVERNMENT INSTRUCTOR Corrine Vazquez MD LAB URINE ORDERABLES Performing Organization Address City/State/[facility] Code Phon e Number [facility] [address] [place] [address] (ABNORMAL) Urine culture (clean catch) (12/23/2018 9:58 AM GOVERNMENT INSTRUCTOR) [facility] gist Method Time Signature Urine Culture Escherichia coli 12/25/2018 [place] 15,000 cfu/ml 9:15 AM [facility] Specimen Anatomical Collection Method Collection Time Receive d Time (Source) Location / / Volume Laterality Urine, Clean 12/23/2018 9:58 AM 9 Catch GOVERNMENT INSTRUCTOR 12:18 PM GOVERNMENT INSTRUCTOR Narrative [facility] - 10/2018 9:16 AM GOVERNMENT INSTRUCTOR Patient does not have an Amoxicillin or [...] City/State/ZIP Code Phon e Number [facility] [address] [place] [address] (ABNORMAL) Urinalysis with reflex microscopic (12/23/2018 9:58 AM GOVERNMENT INSTRUCTOR) [facility] Method Time Signature Type CLEAN CATCH 12/23/2018 [facility] 10:24 AM GOVERNMENT INSTRUCTOR [place] Color, Urine YELLOW YELLOW 12/23/2018 [facility] [place] 10:24 AM GOVERNMENT INSTRUCTOR [place] Clarity, CLEAR CLEAR 12/23/2018 [facility] [place] Urine 10:24 AM GOVERNMENT INSTRUCTOR [place] Glucose, NEGATIVE NEGATIVE 12/23/2018 [facility] [place] Urine mg/dL 10:24 AM GOVERNMENT INSTRUCTOR [place] Bilirubin, NEGATIVE NEGATIVE 12/23/2018 [facility] [place] Urine 10:24 AM GOVERNMENT INSTRUCTOR [place] Ketones, NEGATIVE NEGATIVE 12/23/2018 [facility] [place] Urine mg/dL 10:24 AM GOVERNMENT INSTRUCTOR [place] Specific 1.020 1.000 12/23/2018 [facility] [place], ->=1.030 10:24 AM GOVERNMENT INSTRUCTOR [place] Urine Blood, Urine NEGATIVE NEGATIVE 12/23/2018 [facility] [place] 10:24 AM GOVERNMENT INSTRUCTOR [place] pH, Urine 5.5 5.0 - 7.0 12/23/2018 [facility] [place] 10:24 AM GOVERNMENT INSTRUCTOR [place] Protein, NEGATIVE NEGATIVE-TRA 12/23/2018 [facility] [place] Urine CE mg/dL 10:24 AM GOVERNMENT INSTRUCTOR [place] Urobilinogen, 0.2 0.2 - 1.0 12/23/2018 [facility] [place] Urine E.U./dL 10:24 AM GOVERNMENT INSTRUCTOR [place] Nitrite, NEGATIVE NEGATIVE 12/23/2018 [facility] [place] Urine 10:24 AM GOVERNMENT INSTRUCTOR [place] Leukocytes, TRACE (A) NEGATIVE 12/23/2018 [facility] [place] Urine 10:24 AM GOVERNMENT INSTRUCTOR [place] Specimen Anatomical Collection Method Collection Time Receive d Time (Source) Location / / Volume Laterality Urine (Urine, 12/23/2018 9:58 AM 12/24/19 19 9:58 Clean Catch) GOVERNMENT INSTRUCTOR AM GOVERNMENT INSTRUCTOR Corrine Vazquez MD LAB URINE ORDERABLES Performing Organization Address City/State/ZIP Code Phon e Number [facility] [place] [address] [place] [address] documented in this encounter Visit Diagnoses Diagnosis Frequency of micturition Urinary frequency documented in this encounter Care Teams Global Sourcing Manager Relationship Specialty Start Date End Date Adriane Patel, LEAN MANUFACTURING COORDINATOR, RENTAL AGENT PCP - General 09/22/17 07/06/19 100 [facility] [place] [address] documented as of this encounter
--- OUTSIDE RECORDS SUMMARY | 2021-12-10 15:21 | XMS_ITS | Encounter Summary ---
:1945 Author Organization [facility] Address [address] [place] [address] Care Team Providers Name Role Phone Adriane Patel Ronak VICE PRESIDENT OF NEWS, MATHEMATICS TEACHER Primary Care Provider [phone] Reason for Visit Reason Comments Diabetes Type 2 Diabete, using insuli n, follow up Encounter Details Date Type Department Care Team Description 08/31/2018 Office Visit SE Diabetic Education Yossi Potts, T ype 2 diabetes 2nd Floor RN mellitus with other [address] [place] [address] SE complication, [place], [place] [phone] assisted insulin use [phone] ([facility]) (Work) Social History Tobacco Use Types Packs/Day [...] Potts RN - 08/31/2018 9:00 AM CDT [facility] Patient Name: Marcial Adams Patient Identifier: [id number] Service Location: [facility] SE DIABETIC EDUCATION 2ND FLOOR [address] [facility] [address] Service Date: 08/31/2018 PATIENT EDUCATION- DIABETES VISIT LOCATION: [facility] REFERRING CLINICIAN: JOSE DE JESUS [place] REFERRAL [...] Basal Calorie Needs: Race/Ethnicity: White/ Preferred Language: Maori PERTINENT LABS: Hemoglobin A1C Lab Results Component [...] of diabetes diagnosis: 2007 Previous diabetes education: [facility] Pt.Ed: 2014, 2016, 2018 NURSING DIAGNOSIS: Knowledge [...] visit with a registered dietitian, here at [facility], to discuss her food choices and her [...] insulin adjustment, I will talk with the RN/early childhood educator aide, once a week, until I am able to confidently do this myself or until my next visit with my produce buyer. Patient reported achievement: Most of the time [...] complication, unspecified whether assisted insulin use (HCC) documented in this encounter Care Teams House Worker General Relationship Specialty Start Date End Date Adriane Patel, VICE PRESIDENT OF NEWS, MATHEMATICS TEACHER PCP - General 09/22/17 07/06/19 100 [facility] [place] [address] documented as of this encounter
--- OUTSIDE RECORDS SUMMARY | 2021-12-10 15:21 | XMS_ITS | Encounter Summary ---
:1945 Author Organization [facility] Address [address] [place] [address] Care Team Providers Name Role Phone Adriane Patel Ronak ASSET PROTECTION DETECTIVE, PREHEMMER Primary Care Provider [phone] Reason for Visit Reason Comments Diabetes Encounter Details Date Type Department Care Team Description 12/01/2018 Office Visit SE Endocrinology Bacilio Stewart, Type 2 diabetes mellitus wit h other specified complication, unspecified whether penitentiary insulin use (HCC) (Primary Dx); [address] [facility] MBBS Mixed hyperlipidemia; [place] [address] [address] [facility] Stage 3 chronic kidney disease (HCC); [phone] [place], [place] Essential hype rtension; [id number] Type 2 diabetes mellitus with other spec ified complication, without long-term current use of insulin ([facility]) Social History Tobacco Use Types [...] insulin, currently Glargine 13 units daily. Our special educator, Denny Potts, has been in touch [...] Last eye exam showed no retinopathy in [place]. Denies any numbness or tingling sensation. No [...] file Gets together: Not on file Attends christianity service: Not on file Active member of [...] coordination of care. Bacilio Stewart MD Staff Adobe Cq Developer Adriane Patel APRN, LEONARD - 12/01/2018 9:00 AM CDT Reviewed. documented in this encounter Plan of Treatment Not on filedocumented as of this encounter Results (ABNORMAL) Hemoglobin A1c (03/01/2019 11:39 AM MATH AND SCIENCES DEPARTMENT CHAIR) Analysis Performed At [facility] Time Signature Hemoglobin A1C 8.8 (H) 4.0 - 5.6 03/02/2019 [place] % A1C 1:[address] [...] Volume Laterality Blood 03/01/2019 11:39 03/02/2019 AM MATH AND SCIENCES DEPARTMENT CHAIR 12:55 PM MATH AND SCIENCES DEPARTMENT CHAIR Bacilio DELA CRUZ LAB BLOOD ORDERABLES Performing Organization Address City/State/ZIP Code Phon e Number [facility] [address] [place] [address] documented in this encounter Visit Diagnoses Diagnosis Type 2 diabetes mellitus with other spec ified complication, unspecified whether penitentiary insulin use (HCC) - Primary Mixed hyperlipidemia Stage 3 chronic kidney disease (HCC) Essential hypertension Unspecified essential hypertension Type 2 diabetes mellitus with other spec ified complication, without long-term current use of insulin (HCC) documented in this encounter Care Teams Peoplesoft Programmer Relationship Specialty Start Date End Date Adriane Patel APRN, PREHEMMER PCP - General 09/22/17 07/06/19 100 [facility] [place] [address] documented as of this encounter
--- OUTSIDE RECORDS SUMMARY | 2021-12-10 15:21 | XMS_ITS | Encounter Summary ---
:1945 Author Organization [facility] Address [address] [place] [address] Care Team Providers Name Role Phone Adriane Patel Ronak REVERBERATORY FURNACE OPERATOR, CYBER INTEL PLANNER Primary Care Provider [phone] Reason for Visit Reason Onset Date Comments Med Refill 02/24/2019 Encounter Details Date Type Department Care Team Description 02/24/2019 Refill SE Endocrinology Bacilio Stewart, Type 2 diabetes mellitus [address] [facility] MBBS [place] [address] [address] [facility] complication, without [phone] [place] [address] insulin ([facility]) Social History Tobacco Use Types Packs/Day Years [...] Rx pended and forwarded to Dr Stewart. RUCTOR MILITARY SCIENCE documented in this encounter Plan of Treatment Not on filedocumented as of this encounter Goals Goal Patient Goal Associated Recent Patient-Stated? Author Type Problems Progress Routine Health General No change No Peter Ramesh (02/05/2021 Abbie Murray, 11:19 AM INSTRUCTOR MILITARY SCIENCE) RN Note: Formatting of this note is differe nt from the original. Routine Health Management Care Team Patient Care Team: Corrine Vazquez MD as PCP - General ([facility] Medicine) Yossi Potts, RN as Registered Nurse (Diabetes Education) Abbie Ramesh RN as Network Support Manager Future Scheduled Appointments No future appointments. [...] documented in this encounter Care Teams Gas Plumber Relationship Specialty Start Date End Date Adriane Patel, REVERBERATORY FURNACE OPERATOR, CYBER INTEL PLANNER PCP - General 09/22/17 07/06/19 [address] [place] [address] documented as of this encounter
--- OUTSIDE RECORDS SUMMARY | 2021-12-10 15:21 | XMS_ITS | Encounter Summary ---
:1945 Author Organization [facility] Address [address] [place] [address] Care Team Providers Name Role Phone Dandy aPtelmartinez Simons ELECTRO PLATER, RANGE MANAGEMENT SPECIALIST Primary Care Provider [phone] Reason for Visit Reason Comments Shortness of Breath Encounter Details Date Type Department Care Team Description 10/29/2018 Office Visit Dandy Fernándezine Dyspnea, unspecified [address] M, ELECTRO PLATER, RANGE MANAGEMENT SPECIALIST type (Primary Dx) [place], [place] 100 [facility] [address] [place] [address] Social History Tobacco Use Types Packs/Day Years [...] this plan of care. Adriane Patel APRN, RANGE MANAGEMENT SPECIALIST documented in this encounter Plan of [...] Signature Sodium 139 135 - 145 10/29/2018 [facility] [place] mmol/L 12:04 PM CDT [place] Potassium 4.1 3.5 - 5.1 10/29/2018 [facility] mmol/L 12:04 PM CDT [place] Comment: . Chloride 100 98 - 107 mmol/L 10/29/2018 12:04 PM CDT [facility] [place] Comment: . CO2 27 22 - 29 mmol/L 10/29/2018 12:04 PM CDT [facility] [place] Comment: . Creatinine 1.3 (H) 0.4 - 1.2 mg/dL 10/29/2018 12:04 PM CDT [facility] [place] Comment: . BUN 20 5 - 25 mg/dL 10/29/2018 12:04 PM CDT [facility] [place] Comment: . Glucose 180 (H) 70 - 100 mg/dL 10/29/2018 12:04 PM [facility] [place]ana [place] CDT Calcium, Total,S 9.5 8.4 - 10.2 mg/dL 10/29/2018 12:04 PM [facility] [place] CDT Comment: . Fasting? No 10/29/2018 12:02 PM CDT [facility] [place]INA [place] Comment: 1+ lipemic Specimen Anatomical Collection Method Collection Time Receive d Time (Source) Location / / Volume Laterality Blood (Blood, 10/29/2018 11:40 10/29/2018 Venous) AM CDT 12:01 PM CDT Adriane Patel ELECTRO PLATER, RANGE MANAGEMENT SPECIALIST LAB BLOOD ORDERABLES Performing Organization Address City/State/ZIP Code Phon e Number [facility] [place] [address] [place] [address] (ABNORMAL) BNPNT (10/29/2018 11:40 AM CDT) athologist Signature BNP 258 (H) 5 - 125 10/29/2018 [facility] pg/mL 7:09 PM CDT [facility] Comment: [...] AM CDT PM CDT Adriane Patel APRN, RANGE MANAGEMENT SPECIALIST LAB BLOOD ORDERABLES Performing Organization Address City/State/ZIP Code Phon e Number [facility] [address] [place] [address] (ABNORMAL) Lipid panel (10/29/2018 11:40 AM CDT) athologist Signature Cholesterol 243 (A) 0 - 199 10/29/2018 [facility] mg/dL 6:49 PM CDT [facility] Comment: Recommended by National Cholesterol Education Program (ATP III) -------- Cholesterol Ranges -------- <200 ? Desirable 200-239 ? Borderline high >=240 ? High Triglycerides 340 (A) 0 - 149 mg/dL 10/29/2018 6:49 PM CDT [facility] Comment: -------- TRIG Ranges -------- <150 ?Normal 150-199 ? Borderline high 200-499 ? High >=500 ? Very high HDL 36 (A) 40 - 60 mg/dL 10/29/2018 6:49 PM CDT [facility] Comment: -------- HDL Ranges -------- <40 ?Low 40-59 ?Normal >=60 ? Optimal LDL Calculated 139 (A) 0 - 99 mg/dL 10/29/2018 6:49 PM CDT [facility] Comment: -------- LDL Ranges -------- <100 ? Optimal 100-129 ?Near optimal/above op timal 130-159 ?Borderline high 160-189 ?High >=190 ?Very high Specimen Anatomical Collection Method Collection Time Receive d Time (Source) Location / / Volume Laterality Blood (Blood, 10/29/2018 11:40 10/29/2018 6:21 Venous) AM CDT PM CDT Adriane Patel APRN, RANGE MANAGEMENT SPECIALIST LAB BLOOD ORDERABLES Performing Organization Address City/State/ZIP Code Phon e Number [facility] [address] [place] [address] (ABNORMAL) CBC Branch Off w/Diff (10/29/2018 11:40 AM CDT) [facility] gist Method Time Signature WBC 5.7 3.5 - 10.5 10/29/2018 [facility] K/uL 12:04 PM CDT [place] RBC 3.74 (L) 3.90 - 10/29/2018 [facility] 5.00 M/uL 12:04 PM CDT [place] Hemoglobin 11.0 (L) 12.0 - 10/29/2018 [facility] 15.5 g/dL 12:04 PM CDT [place] Hematocrit 33.8 (L) 35.0 - 10/29/2018 [facility] 44.0 % 12:04 PM CDT [place] Platelets 174 150 - 450 10/29/2018 [facility] K/uL 12:04 PM CDT [place] MCV 90.4 81.6 - 10/29/2018 [facility] 98.3 fL 12:04 PM CDT [place] MCH 29.4 26.0 - 10/29/2018 [facility] 32.0 pg 12:04 PM CDT [place] MCHC 32.5 32.0 - 10/29/2018 [facility] 36.0 g/dL 12:04 PM CDT [place] RDW 12.8 11.9 - 10/29/2018 [facility] 15.5 % 12:04 PM CDT [place] Lymphocytes % 22.0 18.0 - 10/29/2018 [facility] 45.0 % 12:04 PM CDT [place] Mid-size Cells 7.0 3.3 - 10.1 10/29/2018 [facility] % 12:04 PM CDT [place] Granulocytes/Jean Claude 71.0 45.8 - 10/29/2018 [facility] trophils 73.7 % 12:04 PM CDT [place] Lymphocytes 1.3 0.9 - 2.9 10/29/2018 [facility] Absolute K/uL 12:04 PM CDT [place] MIDS Absolute 0.4 0.2 - 0.8 10/29/2018 [facility] K/uL 12:04 PM CDT [place] Granulocytes/Jean Claude 4.0 2.1 - 8.7 10/29/2018 [facility] trophils K/uL 12:04 PM CDT [place] Absolute Specimen Anatomical Collection Method Collection Time Receive d Time (Source) Location / / Volume Laterality Blood (Blood, 10/29/2018 11:40 10/29/2018 Venous) AM CDT 12:01 PM CDT Adriane Patel APRN, CNP LAB BLOOD ORDERABLES Performing Organization Address City/State/ZIP Code Phon e Number [facility] [place] [place] [address] [place] [address] documented in this encounter Visit Diagnoses Diagnosis Dyspnea, unspecified type - Primary documented in this encounter Care Teams Gas Refrigerator Servicer Relationship Specialty Start Date End Date Adriane Patel APRN, RANGE MANAGEMENT SPECIALIST PCP - General 09/22/17 07/06/19 100 [facility] [place] [address] documented as of this encounter
--- OUTSIDE RECORDS SUMMARY | 2021-12-10 15:21 | XMS_ITS | Encounter Summary ---
:1945 Author Organization [facility] Address [address] [place] [address] Care Team Providers Name Role Phone Adriane Patel Ronak OPERATIONS LABEL CLERK, RUBBER FLAP TUBER MACHINE OPERATOR Primary Care Provider [phone] Reason for Visit Reason Onset Date Comments Med Refill 10/21/2018 Encounter Details Date Type Department Care Team Description 10/21/2018 Refill SE Endocrinology Bacilio Stewart, Type 2 diabetes mellitus [address] [facility] [place] [address] [address] [facility] complication, without [phone] [place] [address] insulin ([facility]) Social History Tobacco Use Types Packs/Day [...] (HCC) documented in this encounter Care Teams Take Down Inspector Relationship Specialty Start Date End Date Adriane Patel APRN, RUBBER FLAP TUBER MACHINE OPERATOR PCP - General 09/22/17 07/06/19 100 [facility] [address] documented as of this encounter
--- OUTSIDE RECORDS SUMMARY | 2021-12-10 15:21 | XMS_ITS | Encounter Summary ---
:1945 Author Organization [facility] Address [address] [place] [address] Care Team Providers Name Role Phone Adriane Patel Ronak PLANNER, PRINTED CIRCUIT BOARD DESIGNER Primary Care Provider [phone] Encounter Details Date Type Department Care Team Description 12/24/2018 Orders Only [place] Corrine Vazquez MD [address] [facility] [address] [place], [place] [address] [place], [place] [phone] (Wo rk) Social History Tobacco Use Types [...] Domitila, Management (02/05/2021 Abbie Murray, 11:19 AM GLASS OR MIRROR INSPECTOR) RN Note: Formatting of this note is differe nt from the original. Routine Health Management Care Team Patient Care Team: Corrine Vazquez MD as PCP - [facility] Yossi Potts, RN as Registered Nurse (Diabetes Education) Abbie Ramesh RN as Sales Representative [employer] Future Scheduled Appointments No future appointments. [...] on filedocumented in this encounter Care Teams Lead Web Developer Relationship Specialty Start Date End Date Adriane Patel, PLANNER, PRINTED CIRCUIT BOARD DESIGNER PCP - General 09/22/17 07/06/19 100 [place] [address] documented as of this encounter
--- OUTSIDE RECORDS SUMMARY | 2021-12-10 15:21 | XMS_ITS | Encounter Summary ---
:1945 Author Organization [facility] Address [address] [place] [address] Care Team Providers Name Role Phone PatelAdriane henley Ronak REPRODUCTION MACHINE LOADER, TRAVELING SALES REPRESENTATIVE Primary Care Provider [phone] Reason for Visit Reason Comments UTI Encounter Details Date Type Department Care Team Description 12/07/2018 Office Visit Dandy Fernándezine Urinary tract infection with out hematuria, site unspecified (Primary Dx); [address] M, LEONARD RESENDEZ Upper respiratory tract infection, unspe cified type [place] 100 [facility] [address] [place] [address] Social History Tobacco Use Types Packs/Day Years [...] and is under the care of a studio receptionist. No fever, no chills. No nausea,vomiting and/or [...] and is under the care of a studio receptionist in the [facility]. The following portions of the patient's chart [...] each, Rfl: 3 ??? ACCU-CHEK FASTCLIX LANCETS [facility], Check blood glucose 4 times a day, [...] NEGATIVE NEGATIVE mg/dL Final ? ? Specific Daniel[place], Urine 12/07/2018 1.020 1.000 ->=1.030 Final ??? [...] culture (clean catch) (12/07/2018 2:55 PM CDT) [facility] Method Time Signature Urine Culture <10,000 12/08/2018 [place] cfu/ml No 12:56 PM CDT [facility]ENTER further ID. LABORATORY Specimen Anatomical Collection Method Collection Time Receive d Time (Source) Location / / Volume Laterality Urine, Clean 12/07/2018 2:55 PM 9 Catch CDT 12:21 PM CDT Narrative [facility] - 11/17 12:56 PM CDT Patient does not have an Amoxicillin or PCN allergy Adriane Patel APRN, CNP LAB MICROBIOLOGY - GENERA L ORDERABLES Performing Organization Address City/State/ZIP Code Phon e Number [facility] [address] [place] [address] (ABNORMAL) Urinalysis with reflex microscopic (clean catch) (12/07/2018 2:55 PM CDT) [facility] Method Time Signature Type CLEAN CATCH 12/08/2018 [facility] 9:29 AM CDT [place] Color, Urine YELLOW YELLOW 12/08/2018 [facility] 9:29 AM CDT [place] Clarity, CLEAR CLEAR 12/08/2018 [facility] Urine 9:29 AM CDT [place] Glucose, 100 (A) NEGATIVE 12/08/2018 [facility] Urine mg/dL 9:29 AM CDT [place] Bilirubin, NEGATIVE NEGATIVE 12/08/2018 [facility] Urine 9:29 AM CDT [place] Ketones, NEGATIVE NEGATIVE 12/08/2018 [facility] Urine mg/dL 9:29 AM CDT [place] Specific 1.020 1.000 12/08/2018 [facility] Danielson, ->=1.030 9:29 AM CDT [place] Urine Blood, Urine MODERATE (A) NEGATIVE 12/08/2018 [facility] 9:29 AM CDT [place] pH, Urine 5.5 5.0 - 7.0 12/08/2018 [facility] 9:29 AM CDT [place] Protein, 30 (A) NEGATIVE-TRA 12/08/2018 [facility] Urine CE mg/dL 9:29 AM CDT [place] Urobilinogen, 0.2 0.2 - 1.0 12/08/2018 [facility] Urine E.U./dL 9:29 AM CDT [place] Nitrite, NEGATIVE NEGATIVE 12/08/2018 [facility] Urine 9:29 AM CDT [place] Leukocytes, TRACE (A) NEGATIVE 12/08/2018 [facility] Urine 9:29 AM CDT [place] Specimen Anatomical Collection Method Collection Time Receive d Time (Source) Location / / Volume Laterality Urine (Urine, 12/07/2018 2:55 PM 12/08/19 19 2:56 Clean Catch) CDT PM CDT Adriane Patel APRN, TRAVELING SALES REPRESENTATIVE LAB URINE ORDERABLES Performing Organization Address City/State/ZIP Code Phon e Number [facility] [place] [address] [place] [address] documented in this encounter Visit Diagnoses Diagnosis Urinary tract infection without hematuri a, site unspecified - Primary Upper respiratory tract infection, unspe cified type Urinary tract infection without hematuri a, site unspecified documented in this encounter Care Teams Director Counseling Bureau Relationship Specialty Start Date End Date Adriane Patel APRN, TRAVELING SALES REPRESENTATIVE PCP - General 09/22/17 07/06/19 100 [facility] [place] [address] documented as of this encounter
--- OUTSIDE RECORDS SUMMARY | 2021-12-10 15:21 | XMS_ITS | Encounter Summary ---
:1945 Author Organization [facility] Address [address] [place] [address] Care Team Providers Name Role Phone Adriane Patel PERSONNEL CLERKS SUPERVISOR, DRY CLEANER HELPER Primary Care Provider [phone] Reason for Visit Reason Onset Date Comments Med reaction 12/08/2018 Encounter Details Date Type Department Care Team Description 12/08/2018 Telephone [place] Adriane Patel, Med reaction [address] PERSONNEL CLERKS SUPERVISOR, DRY CLEANER HELPER [place], [place] [address] 100 [facility] [phone] [place], [place] [address] Social History Tobacco Use [...] Notes Telephone Encounter - Adriane Patel APRN, DRY CLEANER HELPER - 12/08/2018 1:48 PM CDT Called the [...] was prescribed yesterday. Please call Pt at [phone] to advise. documented in this encounter Plan of Treatment Not on filedocumented as of this encounter Visit Diagnoses Not on filedocumented in this encounter Care Teams Sfdc Architect Relationship Specialty Start Date End Date Adriane Patel APRN, LEONARD PCP - General 09/22/17 07/06/[address] [place] [address] [place] [address] documented as of this encounter
--- OUTSIDE RECORDS SUMMARY | 2021-12-10 15:21 | XMS_ITS | Encounter Summary ---
:1945 Author Organization [facility] Address [address] [place] [address] Care Team Providers Name Role Phone Adriane Patel Ronak GLASS SANDER BELT, OFFSET PLATEMAKER Primary Care Provider Reason for Visit Reason Comments Sinusitis Conjunctivitis returned after stopping anti biotics Encounter Details Date Type Department Care Team Description 12/01/2018 Office Visit [place] Corrine Vazquez Acute conjunctivitis of [address] [place] both eyes, unspecified [place], [place] [address] acute conju [place]ctivitis type [address] [place] (Primary Dx) [phone] [place] [address] Social History Tobacco Use Types Packs/Day Years [...] gets an infusion of Orencia via her manager stars secondary to rheumatoid arthritis. She has been [...] Primary documented in this encounter Care Teams Rib Builder Relationship Specialty Start Date End Date Adriane Patel, GLASS SANDER BELT, OFFSET PLATEMAKER PCP - General 09/22/17 07/06/19 100 [place] [address] documented as of this encounter
--- OUTSIDE RECORDS SUMMARY | 2021-12-10 15:21 | XMS_ITS | Encounter Summary ---
:1945 Author Organization [facility] Address [address] [place] [address] Care Team Providers Name Role Phone Adriane Patel Ronak MIRROR INSPECTOR, STERILE TECHNICIAN Primary Care Provider [phone] Encounter Details Date Type Department Care Team Description 10/29/2018 Lab [place] Dyspnea, unspecified type; [address] Type 2 diabetes mellitus wit h other specified complication, unspecified whether termite inspector insulin use (HCC) [place], [place] [address] Social History Tobacco Use [...] specified the results complication, section. unspecified whether termite inspector insulin use (HCC) LIPID PANEL Routine 10/29/2018 [...] CDT) athologist Signature GFR 40 (A) 10/29/2018 [facility] 12:04 PM T [facility] 49 (A) 10/29/2018 [facility] [place] GFR 12:04 PM T [facility]ENTER [facility] Comment: [...] CDT 11:40 AM CDT Adriane Patel APRN, STERILE TECHNICIAN LAB BLOOD ORDERABLES Performing Organization Address City/State/ZIP Code Phon e Number [facility] [address] [place] [address] (ABNORMAL) Hemoglobin A1c (10/29/2018 11:40 AM CDT) Analysis Performed At Patho logist Time Signature Hemoglobin A1C 8.0 (H) 4.0 - 5.6 10/29/2018 [place] % A1C 7:20 PM T MEDICAL [facility]ENTER [...] Number [facility] [address] [place] [address] (ABNORMAL) CBC Branch Off w/Diff (10/29/2018 11:40 AM CDT) [facility] gist Method Time Signature WBC 5.7 3.5 - 10.5 10/29/2018 [facility] K/uL 12:04 PM CDT [place] RBC 3.74 (L) 3.90 - 10/29/2018 [facility] [place] 5.00 M/uL 12:04 PM CDT [place] Hemoglobin 11.0 (L) 12.0 - 10/29/2018 [facility] 15.5 g/dL 12:04 PM CDT [place] Hematocrit 33.8 (L) 35.0 - 10/29/2018 [facility] 44.0 % 12:04 PM CDT [place] Platelets 174 150 - 450 10/29/2018 [facility] [place] K/uL 12:04 PM CDT [place] MCV [...] F[place]S Lymphocytes % 22.0 18.0 - 10/29/2018 [facility] [place] 45.0 % 12:04 PM CDT [place] Mid-size Cells 7.0 3.3 - 10.1 10/29/2018 [facility] [place] % 12:04 PM CDT [place] Granulocytes/Jean Claude 71.0 45.8 - 10/29/2018 [facility] JAMES trophils 73.7 % 12:04 PM CDT [place] Lymphocytes 1.3 0.9 - 2.9 10/29/2018 [facility] JAMES Absolute K/uL 12:04 PM CDT [place] MIDS Absolute 0.4 0.2 - 0.8 10/29/2018 [facility] K/uL 12:04 PM CDT [place] Granulocytes/Jean Claude 4.0 2.1 - 8.7 10/29/2018 [facility] JAMES trophils K/uL 12:04 PM CDT [place] Absolute Specimen Anatomical Collection Method Collection Time Receive d Time (Source) Location / / Volume Laterality Blood (Blood, 10/29/2018 11:40 10/29/2018 Venous) AM CDT 12:01 PM CDT Adriane Patel APRN, STERILE TECHNICIAN LAB BLOOD ORDERABLES Performing Organization Address City/State/ZIP Code Phon e Number [facility] [place] [address] [place] [address] (ABNORMAL) Lipid panel (10/29/2018 11:40 AM CDT) athologist Signature Cholesterol 243 (A) 0 - 199 10/29/2018 [facility] mg/dL 6:49 PM CDT CENTER LAB[facility]ORY Comment: Recommended by National Cholesterol Education Program (ATP III) -------- Cholesterol Ranges -------- <200 ? Desirable 200-239 ? Borderline high >=240 ? High Triglycerides 340 (A) 0 - 149 mg/dL 10/29/2018 6:49 PM CDT [facility] Comment: -------- TRIG Ranges -------- <150 ?Normal 150-199 ? Borderline high 200-499 ? High >=500 ? Very high HDL 36 (A) 40 - 60 mg/dL 10/29/2018 6:49 PM CDT [facility] Comment: -------- HDL Ranges -------- <40 ?Low 40-59 ?Normal >=60 ? Optimal LDL Calculated 139 (A) 0 - 99 mg/dL 10/29/2018 6:49 PM CDT [facility] Comment: -------- LDL Ranges -------- <100 ? Optimal 100-129 ?Near optimal/above op timal 130-159 ?Borderline high 160-189 ?High >=190 ?Very high Specimen Anatomical Collection Method Collection Time Receive d Time (Source) Location / / Volume Laterality Blood (Blood, 10/29/2018 11:40 10/29/2018 6:21 Venous) AM CDT PM CDT Adriane Patel APRN, STERILE TECHNICIAN LAB BLOOD ORDERABLES Performing Organization Address City/State/ZIP Code Phon e Number [facility] [address] [place] [address] (ABNORMAL) BNPNT (10/29/2018 11:40 AM CDT) P athologist Signature BNP 258 (H) 5 - 125 10/29/2018 [facility] pg/mL 7:09 PM CDT [facility]ENTER [facility] Comment: [...] AM CDT PM CDT Adriane Patel APRN, STERILE TECHNICIAN LAB BLOOD ORDERABLES Performing Organization Address City/State/ZIP Code Phon e Number [facility] [address] [place], [place] [id number] (ABNORMAL) Basic metabolic panel (10/29/2018 11:40 AM CDT) P athologist Signature Sodium 139 135 - 145 10/29/2018 [facility] mmol/L 12:04 PM CDT F[place] Potassium 4.1 3.5 - 5.1 10/29/2018 [facility] [place] mmol/L 12:04 PM CDT FALLS Comment: . Chloride 100 98 - 107 mmol/L 10/29/2018 12:04 PM CDT [facility] [place] Comment: . CO2 27 22 - 29 mmol/L 10/29/2018 12:04 PM CDT O [facility] [place] Comment: . Creatinine 1.3 (H) 0.4 - 1.2 mg/dL 10/29/2018 12:04 PM CDT [facility] [place] Comment: . BUN 20 5 - 25 mg/dL 10/29/2018 12:04 PM CDT [facility] [place] Comment: . Glucose 180 (H) 70 - 100 mg/dL 10/29/2018 12:04 PM [facility] C [place] CDT Calcium, Total,S 9.5 8.4 - 10.2 mg/dL 10/29/2018 12:04 PM [facility] [place] CDT Comment: . Fasting? No 10/29/2018 12:02 PM CDT [facility] [place] MIRIAM PIERRE Comment: 1+ lipemic Specimen Anatomical Collection Method Collection Time Receive d Time (Source) Location / / Volume Laterality Blood (Blood, 10/29/2018 11:40 10/29/2018 Venous) AM CDT 12:01 PM CDT Adriane Patel APRN, STERILE TECHNICIAN LAB BLOOD ORDERABLES Performing Organization Address City/State/ZIP Code Phon e Number [facility] [place] [address] [place] [address] documented in this encounter Visit Diagnoses Diagnosis Dyspnea, unspecified type Type 2 diabetes mellitus with other spec ified complication, unspecified whether half-way insulin use (HCC) documented in this encounter Care Teams Subassembly Assembler Relationship Specialty Start Date End Date Adriane Patel APRN, STERILE TECHNICIAN PCP - General 09/22/17 07/06/19 100 [facility] [place] [address] documented as of this encounter
--- OUTSIDE RECORDS SUMMARY | 2021-12-10 15:21 | XMS_ITS | Encounter Summary ---
:1945 Author Organization [facility] Address [address] [place] [address] Care Team Providers Name Role Phone Adriane Patel Ronak COLLEGE TUTOR, LOCOMOTIVE SUPERVISOR Primary Care Provider [phone] Encounter Details Date Type Department Care Team Description 12/02/2018 Telephone SE Endocrinology Bacilio Stewart MBBS [address] [place] [address] [place] [address] [phone] (Wo rk) Social History Tobacco Use Types [...] on filedocumented in this encounter Care Teams Thermocouple Tester Relationship Specialty Start Date End Date Adriane Patel APRN, LOCOMOTIVE SUPERVISOR PCP - General 09/22/17 07/06/19 100 [facility] [place] [address] documented as of this encounter
--- OUTSIDE RECORDS SUMMARY | 2021-12-10 15:21 | XMS_ITS | Encounter Summary ---
:1945 Author Organization [facility] Address [address] [place] [address] Care Team Providers Name Role Phone Adriane Patel GAS OR WATER METER INSTALLER, FARM MANAGEMENT TEACHER Primary Care Provider [phone] Reason for Visit Reason Onset Date Comments [place] [facility] 12/09/2018 Encounter Details Date Type Department Care Team Description 12/09/2018 Telephone [place] Adriane Patel, [place] [facility] [address] GAS OR WATER METER INSTALLER, FARM MANAGEMENT TEACHER [place], [place] [address] [address] [facility] [address] [phone] [place], [place] [address] Social History Tobacco Use [...] red and gunky. Please call Pt at [phone] to advise. documented in this encounter Plan of Treatment Not on filedocumented as of this encounter Visit Diagnoses Diagnosis Conjunctivitis of both eyes, unspecified conjunctivitis type - Primary documented in this encounter Care Teams Principal Cloud Architect Relationship Specialty Start Date End Date Adriane Patel APRN, LEONARD PCP - General 09/22/17 07/06/19 100 [facility] [place] [address] documented as of this encounter
--- OUTSIDE RECORDS SUMMARY | 2021-12-10 15:21 | XMS_ITS | Encounter Summary ---
:1945 Author Organization [facility] Address [address] [place] [address] Care Team Providers Name Role Phone Adriane Patel REPORT PROGRAMMER, TUBE MACHINE OPERATOR HELPER Primary Care Provider [phone] Encounter Details Date Type Department Care Team Description 10/28/2018 Telephone [place] Adriane Patel, [address] REPORT PROGRAMMER, TUBE MACHINE OPERATOR HELPER [place], [place] [address] [address] [facility] [address] [phone] [place], [place] [address] Social History Tobacco Use [...] Cold-no URI-no Dizziness-no Weakness-no Per Adriane Patel TUBE MACHINE OPERATOR HELPER: We can see her tomorrow but if anything worsen's or changes that she needs to go straight to the ER or call 911. Marcial understood this plan of care and is alright with seeing us tomorrow. documented in this encounter Plan of Treatment Not on filedocumented as of this encounter Visit Diagnoses Not on filedocumented in this encounter Care Teams Vice President Of Nursing Relationship Specialty Start Date End Date Adriane Patel APRN, TUBE MACHINE OPERATOR HELPER PCP - General 09/22/17 07/06/19 100 [facility] [place] [address] documented as of this encounter
--- OUTSIDE RECORDS SUMMARY | 2021-12-10 15:21 | XMS_ITS | Encounter Summary ---
:1945 Author Organization [facility] Address [address] [place] [address] Care Team Providers Name Role Phone Adriane Patel Ronak COLLECTION ANALYST, CIRCUS HAND Primary Care Provider [phone] Reason for Visit Reason Comments Eye Problem blurry vision Encounter Details Date Type Department Care Team Description 12/16/2018 Office Visit [place] Carl Stinson, Vision loss (Primary [address] MD Dx) [place], [place] [address] Social History Tobacco Use [...] without improvement. She has been seen by it risk and assurance senior manager and examination was essentially negative.She however is [...] 12/16/2018), Disp: 3.5 g, Rfl: 0 ??? novmsspu-xdalfrkbf-epbsvlhphwayv (MAXITROL) 3.5-43454-9.1 ophthalmic suspension, Administer 1 drop into affected [...] dilated from her recent exam by the it risk and assurance senior manager Assessment 1. Persistent eye drainage with reported vision loss. 2. Immunosuppressant. Plan 1. I am concerned about her complaints about decreased vision. She has spoken to her forest resources professor and the forest resources professor had recommended that she see MD. I discussed this with her and felt that the MD she needs to see as an medical advisor. She is in agreement and I set her up with appointment Dr. Gee ramirez in [place] for tomorrow. 2. When it settles down she will get her flu shot. documented in this encounter Plan of Treatment Not on filedocumented as of this encounter Visit Diagnoses Diagnosis Vision loss - Primary Unspecified visual loss documented in this encounter Care Teams Coastal Tug Mate Relationship Specialty Start Date End Date Adriane Patel APRN, CIRCUS HAND PCP - General 09/22/17 07/06/19 100 [place] [address] documented as of this encounter
--- OUTSIDE RECORDS SUMMARY | 2021-12-10 15:21 | XMS_ITS | Encounter Summary ---
:1945 Author Organization [facility] Address [address] [place] [address] Care Team Providers Name Role Phone Adriane Patel Ronka BUSINESS OFFICE TECHNOLOGY INSTRUCTOR, ALLIANCES CONSULTANT Primary Care Provider [phone] Encounter Details Date Type Department Care Team Description 12/23/2018 Patient Outreach SE Care Coordination Abbie Ramesh Counseling and coordination of care (Primary Dx); [address] [facility] Terri RN Type 2 diabetes mellitus with other spec ified complication, with long-term current use of insulin ([facility]) [place], [place] [id number] [place] [address] [place] [address] Social History Tobacco Use Types Packs/Day Years [...] better. Follow-up plan: ??? Follow up with phlebotomy coordinator in 1 week to discuss care [...] Risk Performed 12/24/2019 ??? [facility] Annual Wellness 12/24/2019 ??? Colorectal Cancer Screening: Colonoscopy 05/21/2021 Lifestyle ??? Keep your medical appointments Future Appointments Date Time Provider Department Center 03/02/2019 10:00 AM [facility] [place] 03/07/2019 9:00 AM JOSE DE JESUS [place] [facility] Result Component ? ? Hemoglobin A1c < 7.0 8.0 8.7 8.5 8.5 9.0 Patient will work towards decreasing A1c to 7 within 6 months (June 2019) a.) Patient will check A1C every three months (Should be less than 7.0) b.) Patient will check blood glucose 2 times daily and report to critical care nurse weekly c.) Patient will take medication as prescribed d.) Patient will exercise for 5 minutes 2 days per week e.) Patient will maintain a food diary f.) Patient will weigh daily and record g.) Patient will follow up with Endocrine Dr Stewart h.) Patient will schedule a foot exam: done i.) Patient will schedule an eye exam: done II TUBE BENDER Abbie Ramesh RN - 12/23/2018 10:20 AM CST Care Plan - Care Coordination Enrolled date: Discussion Date: 12/23/18 11:40 AM Patient Information: Preferred Mill Crane Operator: patient Preferred Method of communication: Home [phone] (home) Okay to leave detailed message: Yes MyChart: No, Patient refused Literacy Concerns: No Filling Winder needed: No Extended Emergency Contact Information Primary Emergency Contact: ALEX BAZAN Mobile Relation: Spouse Filling Winder needed? No Healthcare Team: Patient Care Team: Adriane Patel APRN, ALLIANCES CONSULTANT as PCP - General JOSE DE JESUS [place] as Diabetes Management (Endocrinology) Yossi Potts, RN as Registered Nurse (Diabetes Education) NEETU Gonzalez, RN, PHN as Intel Recruiter To contact your Light Air Defense Artillery Crewmember, please call Care Coordination at [phone] If this is an emergency, call [phone] Medications: Current Outpatient Medications: ??? Abatacept (ORENCIA [...] DAILY, Disp: 90 tablet, Rfl: 3 ??? zuzjurjk-yliawgrir-rcgvvwlekkghn (MAXITROL) 3.5-80540-0.1 ophthalmic suspension, Administer 1 drop into affected [...] More than three times a week Attends anabaptism service: More than 4 times per year [...] disease ??? Gout ??? Hyperlipidemia ??? Other chcf (current) drug therapy ??? Paresthesia of skin [...] Risk Performed 12/24/2019 ??? [facility] Annual Wellness 12/24/2019 ??? Colorectal Cancer Screening: Colonoscopy 05/21/2021 ? ? Hemoglobin A1c < 7.0 Patient will work towards decreasing A1c to 7 within 6 months (June 2019) a.) Patient will check A1C every three months (Should be less than 7.0) b.) Patient will check blood glucose 2 times daily and report to critical care nurse weekly c.) Patient will take medication as [...] 03/07/2019 9:00 AM JOSE DE JESUS [facility] Emergency Plans: Diabetes Management Emergency Preparation Hypoglycemia [...] low blood glucose readings in 24 hours! II TUBE BENDER documented in this encounter Plan of Treatment Not on filedocumented as of this encounter Goals Goal Patient Goal Associated Recent Patient-Stated? Author Type Problems Progress Routine Health General No change No Peter Ramesh (02/05/2021 Abbie Murray, 11:19 AM HAND II TUBE BENDER) RN Note: Formatting of this note is differe nt from the original. Routine Health Management Care Team Patient Care Team: Corrine Vazquez MD as PCP - General ([facility] Medicine) Yossi Potts, RN as Registered Nurse (Diabetes Education) Abbie Ramesh RN as Intel Recruiter Future Scheduled Appointments No future appointments. Health [...] (HCC) documented in this encounter Care Teams Tennis Player Relationship Specialty Start Date End Date Adriane Patel, BUSINESS OFFICE TECHNOLOGY INSTRUCTOR, ALLIANCES CONSULTANT PCP - General 09/22/17 07/06/19 100 [facility] [place] [address] documented as of this encounter
--- OUTSIDE RECORDS SUMMARY | 2021-12-10 15:21 | XMS_ITS | Encounter Summary ---
:1945 Author Organization [facility] Address [address] [place] [address] Care Team Providers Name Role Phone Adriane Patel FUELS ENGINEER, PLATING MACHINE OPERATOR Primary Care Provider [phone] Reason for Visit Reason Onset Date Comments UTI 12/07/2018 Encounter Details Date Type Department Care Team Description 12/07/2018 Telephone [place] Adriane Patel, UTI [address] FUELS ENGINEER, PLATING MACHINE OPERATOR [place], [place] [address] [address] [facility] [address] [phone] [place], [place] [address] Social History Tobacco Use [...] and past antibiotic. Please call her at [phone]. documented in this encounter Plan of Treatment Not on filedocumented as of this encounter Visit Diagnoses Not on filedocumented in this encounter Care Teams Photographic Engineer Relationship Specialty Start Date End Date Adriane Patel APRN, PLATING MACHINE OPERATOR PCP - General 09/22/17 07/06/19 100 [facility] [place] [address] documented as of this encounter
--- OUTSIDE RECORDS SUMMARY | 2021-12-10 15:21 | XMS_ITS | Encounter Summary ---
:1945 Author Organization [facility] Address [address] [place] [address] Care Team Providers Name Role Phone Adriane Patel Ronak RUDDN, CONDITIONER TUMBLER Primary Care Provider [phone] Encounter Details Date Type Department Care Team Description 01/05/2019 Patient Outreach SE Care Coordination Abbie Ramesh, [address] [place] [address] [place] [address] [place] [address] Social History Tobacco Use Types [...] many times do you More than three agpaito es a week 12/23/2018 talk on the [...] 1. Blood sugar numbers 2. Bladder infection C WRITER documented in this encounter Plan of Treatment Not on filedocumented as of this encounter Goals Goal Patient Goal Associated Recent Patient-Stated? Author Type Problems Progress Routine Health General No change No Peter Ramesh (02/05/2021 Abbie Murray, 11:19 AM COMIC WRITER) RN Note: Formatting of this note is differe nt from the original. Routine Health Management Care Team Patient Care Team: Corrine Vazquez MD as PCP - General ([facility] Medicine) Yossi Potts, RN as Registered Nurse (Diabetes Education) Abbie Ramesh, RN as Yarding And Folding Machine Operator Future Scheduled Appointments No future appointments. Health Maintenance Health Maintenance Topic Date Due Urine Protein Screening 05/31/2020 Lipid Panel 09/05/2020 Glaucoma Screening 67+ Yr 12/25/2020 Ophthalmology Exam 12/25/2020 [facility] Annual Wellness 01/12/2021 Hemoglobin A1C 01/24/2021 Diabetic Foot Exam 03/16/2021 Colorectal Cancer Screening: Colonoscop y 05/21/2021 Fall Risk Performed 06/05/2021 Mammogram 12/03/2021 COVID-19 Vaccine Completed [facility] Pneumococcal Vaccine: <64 Completed [facility] Pneumococcal Vaccine: 65+ Years Com pleted HPV Vaccines Aged Out Notes: Due: Urine Protein screening Eye exam AWV A1C Lipid panel documented as of this encounter Visit Diagnoses Not on filedocumented in this encounter Care Teams Flame Cutter Relationship Specialty Start Date End Date Adriane Patel, LABEL DESIGNER, CONDITIONER TUMBLER PCP - General 09/22/17 07/06/19 100 [place] [address] documented as of this encounter
--- OUTSIDE RECORDS SUMMARY | 2021-12-10 15:21 | XMS_ITS | Encounter Summary ---
:1945 Author Organization [facility] Address [address] [place] [address] Care Team Providers Name Role Phone Adriane Patel Ronak CAP SIZER, DIRECTOR STRATEGY Primary Care Provider [phone] Encounter Details Date Type Department Care Team Description 12/25/2018 Orders Only [place] Corrine Vazquez MD [address] [facility] [address] [place], [place] [address] [place], [place] [phone] (Wo rk) Social History Tobacco Use Types [...] Domitila, Management (02/05/2021 Abbie Murray, 11:19 AM GAS METER READER) RN Note: Formatting of this note is differe nt from the original. Routine Health Management Care Team Patient Care Team: Corrine Vazquez MD as PCP - [facility] Yossi Potts, RN as Registered Nurse (Diabetes Education) Abbie Ramesh RN as Union Contract Representative Future Scheduled Appointments No future appointments. [...] on filedocumented in this encounter Care Teams Plant Production Worker Relationship Specialty Start Date End Date Adriane Patel, CAP SIZER, DIRECTOR STRATEGY PCP - General 09/22/17 07/06/19 100 [place] [address] documented as of this encounter
--- OUTSIDE RECORDS SUMMARY | 2021-12-10 15:21 | XMS_ITS | Encounter Summary ---
:1945 Author Organization [facility] Address [address] [place] [address] Care Team Providers Name Role Phone Adriane Patel Ronak SERVICE INSPECTOR, COMMUNICATIONS MEDIA PROFESSOR Primary Care Provider [phone] Encounter Details Date Type Department Care Team Description 12/07/2018 Lab [facility] Urinary tract infection [address] without hematuria, site [place], [place] [address] unspecified [phone] Social History Tobacco Use Types Packs/Day Years [...] (ABNORMAL) Urinalysis-Microscopic Exam (12/07/2018 2:55 PM CDT) [facility] Method Time Signature Casts, urine NONE SEEN 0-2 Hyaline 12/08/2018 IBIS /lpf 1:03 PM [facility] Significant NONE SEEN None Seen 12/08/2018 [place] casts, urine /lpf 1:03 PM [facility] RBC, Urine 4-10 (A) 0 - 3 /hpf 12/08/2018 [place] 1:03 PM [facility] WBC, Urine 0-3 /hpf 12/08/2018 [place] 1:03 PM [facility] Comment: Male Ref Range ? 0-3/hpf Female Ref Range ?? 0-10/hpf Squamous Epithelial, 1+ (A) Few /lpf 12/08/2018 1:03 PM [facility] Urine T [facility] Trans Epithelial, NONE SEEN 0 - 3 /hpf 12/08/2018 1:03 PM [facility] Urine T [facility] Renal Tubular Cells, NONE SEEN 0 - 1 /hpf 12/08/2018 [facility] Bacteria, Urine FEW None Seen 12/08/2018 1:03 PM [facility] Specimen Anatomical Collection Method Collection Time Receive d Time (Source) Location / / Volume Laterality 12/07/2018 2:55 PM 9 CDT 12:21 PM CDT Adriane Patel APRN, COMMUNICATIONS MEDIA PROFESSOR LAB URINE ORDERABLES Performing Organization Address City/State/ZIP Code Phon e Number [facility] [address] [place] [address] Urine culture (clean catch) (12/07/2018 2:55 PM CDT) [facility] Method Time Signature Urine Culture <10,000 12/08/2018 [place] cfu/ml No 12:56 PM [facility] further ID. LABORATORY Specimen Anatomical Collection Method Collection Time Receive d Time (Source) Location / / Volume Laterality Urine, Clean 12/07/2018 2:55 PM 9 Catch CDT 12:21 PM CDT Narrative [facility] - 11/17 12:56 PM CDT Patient does not have an Amoxicillin or PCN allergy Adriane Patel APRN, COMMUNICATIONS MEDIA PROFESSOR LAB MICROBIOLOGY - GENERA L ORDERABLES Performing Organization Address City/State/ZIP Code Phon e Number [facility] [address] [place] [address] (ABNORMAL) Urinalysis with reflex microscopic (clean catch) (12/07/2018 2:55 PM CDT) [facility] Method Time Signature Type CLEAN CATCH [...] [place] Specific 1.020 1.000 12/08/2018 [facility] Prosser, ->=1.030 9:29 AM CDT [place] Urine Blood, Urine MODERATE (A) NEGATIVE 12/08/2018 [facility] 9:29 AM CDT [place] pH, Urine 5.5 5.0 - 7.0 12/08/2018 [facility] 9:29 AM CDT [place] Protein, 30 (A) NEGATIVE-TRA 12/08/2018 [facility] Urine CE mg/dL 9:29 AM CDT [place] Urobilinogen, 0.2 0.2 - 1.0 12/08/2018 [facility] Urine E.U./dL 9:29 AM CDT [place] Nitrite, NEGATIVE NEGATIVE 12/08/2018 [facility] Urine 9:29 AM CDT [place] Leukocytes, TRACE (A) NEGATIVE 12/08/2018 [facility] Urine 9:29 AM CDT [facility] Specimen Anatomical Collection Method Collection Time Receive d Time (Source) Location / / Volume Laterality Urine (Urine, 12/07/2018 2:55 PM 12/08/19 19 2:56 Clean Catch) CDT PM CDT Adriane Patel APRN, COMMUNICATIONS MEDIA PROFESSOR LAB URINE ORDERABLES Performing Organization Address City/State/ZIP Code Phon e Number [facility] [place] [address] [place] [address] documented in this encounter Visit Diagnoses Diagnosis Urinary tract infection without hematuri a, site unspecified documented in this encounter Care Teams Unloading Checker Relationship Specialty Start Date End Date Adriane Patel APRN, COMMUNICATIONS MEDIA PROFESSOR PCP - General 09/22/17 07/06/19 100 [facility] [place] [address] documented as of this encounter
--- OUTSIDE RECORDS SUMMARY | 2021-12-10 15:21 | XMS_ITS | Encounter Summary ---
:1945 Author Organization [facility] Address [address] [place] [address] Care Team Providers Name Role Phone Adriane Patel EQUAL OPPORTUNITY OFFICER, BOGGER OPERATOR Primary Care Provider Reason for Referral Consultation (Routine) - Closed Specialty Diagnoses / Procedures Referred By Contact Refer red To Contact Diagnoses Medicare annual wellness visit, initial Corrine Vazquez MD Care Coordination [address] [facility] [address] [place], [place] [id number] Referral ID Status Reason Start Date Expiration Date Visits V isits Requested Authorized [id number] Closed Specialty 12/23/2018 99 99 Services Required Scheduling Instructions Staff from this department will contact the patient to schedule an appointment. GER OF TAX Reason for Visit Reason Comments Medicare Annual Wellness Visit Initial Encounter Details Date Type Department Care Team Description 12/23/2018 Office Visit [place] Medicare annual wellness [address] visit, initial (Primary [place], [place] [address] Dx) [phone] Social History Tobacco Use Types Packs/Day Years [...] RESOURCES: Patient Care Team: Adriane Patel APRN, BOGGER OPERATOR as PCP - General [facility] J[facility] [place] as Diabetes Management (Endocrinology) Yossi Potts RN as Registered Nurse (Diabetes Education) Eye Care: Dr [place] in [place]: [facility]- 1 week ago Dental Care: Pharmacy: [facility] [address] [address] [facility] [address] [address] Other: Visit Vitals Smoking Status Never Smoker [...] BY MOUTH DAILY 90 tablet 3 ??? adwspqhr-aupxmteke-crzoxmaniuuvn (MAXITROL) 3.5-31125-3.1 ophthalmic suspension Administer 1 drop into affected [...] More than three times a week Attends taoist service: More than 4 times per year [...] the patient's advance care planning wishes:: Yes Roman Catholic or spiritual beliefs that impact treatment:: No [...] transfusion before 1991. ?? Those born between 2277-9280. Glaucoma: Medicare Part B (Medical Insurance) covers [...] of one pack a dayfor 30 years). GER OF TAX documented in this encounter Plan of Treatment Scheduled Referrals Name Type Priority Associated Order Schedule Diagnoses Ambulatory referral Outpatient Referral Routine Medicare corie rodgers Ordered: to Care Coordination wellness visit, 08/2018 initial documented as of this encounter Goals Goal Patient Goal Associated Recent Patient-Stated? Author Type Problems Progress Routine Health General No change No Peter Ramesh (02/05/2021 Abbie Murray, 11:19 AM MANAGER OF TAX) RN Note: Formatting of this note is differe nt from the original. Routine Health Management Care Team Patient Care Team: Corrine Vazquez MD as PCP - General [facility]) Yossi Potts, RN as Registered Nurse (Diabetes Education) Abbie Ramesh, ERA as User Acceptance Tester Future Scheduled Appointments No future appointments. Health [...] Primary documented in this encounter Care Teams Communication Skills Instructor Relationship Specialty Start Date End Date Adriane Patel APRN, BOGGER OPERATOR PCP - General 09/22/17 07/06/19 100 [facility] [place] [address] documented as of this encounter
--- OUTSIDE RECORDS SUMMARY | 2021-12-10 15:21 | XMS_ITS | Encounter Summary ---
:1945 Author Organization [facility] Address [address] [place] [address] Care Team Providers Name Role Phone Adriane Patel JUKE BOX SERVICER, BLADE WORKER Primary Care Provider [phone] Reason for Visit Reason Onset Date Comments Pain when urinating 12/22/2018 Encounter Details Date Type Department Care Team Description 12/22/2018 Telephone [place] Adriane Patel, Pain when urinating [address] JUKE BOX SERVICER, BLADE WORKER [place], [place] [address] [address] [facility] [address] [phone] [place], [place] [address] Social History Tobacco Use [...] scheduled for appointment tomorrow with Dr. Vazquez. AL GROUP WORKER Telephone Encounter - Adriane Patel APRN, CNP - 12/22/2018 10:30 AM SOCIAL GROUP WORKER The patient should be evaluated. Suresh Cm AL GROUP WORKER Telephone Encounter - Margareth Sanchez RN - 12/22/2018 10:07 AM CST Please advise. AL GROUP WORKER Telephone Encounter - Luciana Albarado - 12/22/2018 9:59 AM CST Pt called stating even though her lab work came back negative for a UTI she still has pain with urination. Pt is wondering about a possible kidney stone as mentioned by Suresh Patel, or what her next step should be. Please call Pt at [phone] to advise AL GROUP WORKER documented in this encounter Plan of Treatment Not on filedocumented as of this encounter Visit Diagnoses Not on filedocumented in this encounter Care Teams Data Warehouse Consultant Relationship Specialty Start Date End Date Adriane Patel APRN, BLADE WORKER PCP - General 09/22/17 07/06/19 100 [facility] [place] [address] documented as of this encounter
--- OUTSIDE RECORDS SUMMARY | 2021-12-10 15:21 | XMS_ITS | Encounter Summary ---
:1945 Author Organization Address [address] [place] [address] Care Team Providers Name Role Phone Adriane Patel Ronak OUTDOOR EMERGENCY CARE TECHNICIAN, TIRE RECAPPER Primary Care Provider [phone] Reason for Visit Reason Comments Immunizations FLU Encounter Details Date Type Department Care Team Description 01/17/2019 Immunization Chuckie Pierer Immunization due (Primary [address] Dx) [place], [place] [address] Social History Tobacco Use [...] with patient prior to administration. VIS given. HISTORY INSTRUCTOR documented in this encounter Plan of Treatment Not on filedocumented as of this encounter Goals Goal Patient Goal Associated Recent Patient-Stated? Author Type Problems Progress Routine Health General No change No Peter Ramesh (02/05/2021 Abbie Murray, 11:19 AM ART HISTORY INSTRUCTOR) RN Note: Formatting of this note is differe nt from the original. Routine Health Management Care Team Patient Care Team: Corrine Vazquez MD as PCP - General ([facility] Medicine) Yossi Potts, RN as Registered Nurse (Diabetes Education) Abbie Ramesh, ERA as Make Up Man Future Scheduled Appointments No future appointments. [...] Primary documented in this encounter Care Teams Transportation Maintenance Operator Relationship Specialty Start Date End Date Adriane Patel, OUTDOOR EMERGENCY CARE TECHNICIAN, TIRE RECAPPER PCP - General 09/22/17 07/06/[address] [place], [place] [address] [address] documented as of this encounter
--- OUTSIDE RECORDS SUMMARY | 2021-12-10 15:22 | XMS_ITS | Encounter Summary ---
:1945 Author Organization [facility] Address [address] [place] [address] Care Team Providers Name Role Phone Adriane Patel PRODUCTION ARTIST, PHLEBOTOMIST ASSOCIATE Primary Care Provider [phone] Reason for Visit Reason Comments Diabetes Consultation (Routine) - Closed Specialty Diagnoses / Procedures Referred By Contact Refer red To Contact Endocrinology Diagnoses Type 2 diabetes mellitus with hyperglycemia, without long-term current use of insulin (HCC) Adriane Patel, MAL, PHLEBOTOMIST ASSOCIATE [address] [place] [address] Referral ID Status Reason Start Date Expiration Date Visits V isits Requested Authorized [id number] Closed Specialty 07/05/2018 07/06/2019 1 1 Services Required Encounter Details Date Type Department Care Team Description 07/07/2018 Consult SE Endocrinology Bacilio Stewart, Type 2 diabetes mellitus [address] [place] [address] complication, without [phone] [place] [address] insulin (HCC) (Primary [phone] Dx) (Work) Social History Tobacco Use Types [...] Last eye exam showed no retinopathy in [place], per her account. Denies any numbness or [...] file Gets together: Not on file Attends jehovah's witness service: Not on file Active member of [...] up in a couple of weeks in [place]. - No skin changes or diabetic foot ulcers. - HTN. Reasonable control on therapy. - No neuropathy, normal monofilament exam. Follow up in about 6 weeks. Reviewed with the patient and her husbandin detail, they verbalized understanding and agreed with the plan. Bacilio Stewart MD Staff Labourers Adriane Patel APRN, LEONARD - 07/07/2018 3:30 PM CDT Reviewed. documented in this encounter Plan of Treatment Not on filedocumented as of this encounter Results (ABNORMAL) Basic metabolic panel (07/07/2018 4:35 PM CDT) [facility] Time Signature Sodium 141 135 - 145 07/07/2018 [facility] mEq/L 5:59 PM T [facility] Potassium 4.2 3.5 - 5.1 07/07/2018 [facility] mEq/L 5:59 PM T [facility] Chloride 108 (H) 98 - 107 07/07/2018 [facility] mEq/L 5:59 PM [facility] CO2 26 22 - 29 07/07/2018 [facility] mmol/L 5:59 PM [facility] Creatinine 1.4 (H) 0.4 - 1.2 07/07/2018 [facility] mg/dL 5:59 PM [facility] BUN 22 5 - 25 07/07/2018 [facility] mg/dL 5:59 PM [facility] Glucose 181 (H) 70 - 100 07/07/2018 [facility] mg/dL 5:59 PM [facility] Calcium, 9.7 8.4 - 10.2 07/07/2018 [facility] Total,S mg/dL 5:59 PM [facility] Fasting? No 07/07/2018 [facility] 4:35 PM [facility] Specimen Anatomical Collection Method Collection Time Receive d Time (Source) Location / / Volume Laterality Blood 07/07/2018 4:35 PM 9 5:26 CDT PM CDT Bacilio DELA CRUZ LAB BLOOD ORDERABLES Performing Organization Address City/State/ZIP Code Phon e Number [facility] [address] [place] [address] documented in this encounter Visit Diagnoses Diagnosis Type 2 diabetes mellitus with other spec ified complication, without long-term current use of insulin (HCC) - Primary documented in this encounter Care Teams Nail Galvanizer Relationship Specialty Start Date End Date Adriane Patel, PRODUCTION ARTIST, PHLEBOTOMIST ASSOCIATE PCP - General 09/22/17 07/06/19 100 [facility] [place] [address] documented as of this encounter
--- OUTSIDE RECORDS SUMMARY | 2021-12-10 15:22 | XMS_ITS | Encounter Summary ---
:1945 Author Organization [facility] Address [address] [place] [address] Care Team Providers Name Role Phone Adriane Patel RADIO EQUIPMENT REPAIRER, CLIENT LEADER Primary Care Provider [phone] Encounter Details Date Type Department Care Team Description 07/20/2018 Telephone [place]ie [place] Adriane Patel, [address] RADIO EQUIPMENT REPAIRER, CLIENT LEADER [place], [place] [address] [phone] [place], [place] [address] Social History Tobacco Use [...] Notes Telephone Encounter - Adriane Patel APRN, CLIENT LEADER - 07/20/2018 4:24 PM CDT The patient will start a low dose of Lasix 10 mg daily x 7 days and will be educated on insulin injection. documented in this encounter Plan of Treatment Not on filedocumented as of this encounter Visit Diagnoses Not on filedocumented in this encounter Care Teams Forest Nursery Supervisor Relationship Specialty Start Date End Date Adriane Patel APRN, LEONARD PCP - General 09/22/17 07/06/19 100 [place] [address] documented as of this encounter
--- OUTSIDE RECORDS SUMMARY | 2021-12-10 15:22 | XMS_ITS | Encounter Summary ---
:1945 Author Organization [facility] Address [address] [place] [address] Care Team Providers Name Role Phone Adriane Patel Ronak LAV CREWMAN, SPACE STUDIES FACULTY MEMBER Primary Care Provider [phone] Encounter Details Date Type Department Care Team Description 07/09/2018 Orders Only SE Endocrinology Bacilio Stewart, Type [address] [place] [address] specified complication, [place], [place] without long-t erm [address] current use of insulin [phone] ([facility]) (Primary Dx) (Work) Social History Tobacco [...] Primary documented in this encounter Care Teams Campaign Assistant Relationship Specialty Start Date End Date Adriane Patel, LAV CREWMAN, SPACE STUDIES FACULTY MEMBER PCP - General 09/22/17 07/06/19 100 [facility] [place] [address] documented as of this encounter
--- OUTSIDE RECORDS SUMMARY | 2021-12-10 15:22 | XMS_ITS | Encounter Summary ---
:1945 Author Organization [facility] Address [address] [place] [address] Care Team Providers Name Role Phone Adriane Patel Ronak AUTOMOTIVE TECHNOLOGY INSTRUCTOR, LOGISTICS ACCOUNT MANAGER Primary Care Provider Encounter Details Date Type Department Care Team Description 07/26/2018 Orders Only SE Endocrinology Bacilio Stewart, Type 2 diabetes mellitus wit h other specified complication, without long-term current use of insulin (HCC) (Primary Dx); [address] [facility] MBBS Type 2 diabetes mellitus without complic ation, without long-term current use of insulin (HCC) [place] [address] [address] [facility] [phone] [place] [address] Social History Tobacco Use Types Packs/Day Years [...] (HCC) documented in this encounter Care Teams Ergonomics Technician Relationship Specialty Start Date End Date Adriane Patel, AUTOMOTIVE TECHNOLOGY INSTRUCTOR, LOGISTICS ACCOUNT MANAGER PCP - General 09/22/17 07/06/19 100 [facility] [place] [place] [address] documented as of this encounter
--- OUTSIDE RECORDS SUMMARY | 2021-12-10 15:22 | XMS_ITS | Encounter Summary ---
:1945 Author Organization [facility] Address [address] [place] [address] Care Team Providers Name Role Phone Adriane Patel INBOUND CALL CENTER REPRESENTATIVE, ADULT EDUCATION TEACHER Primary Care Provider [phone] Reason for Visit Reason Comments Med Refill Encounter Details Date Type Department Care Team Description 06/21/2018 Refill [place] Adriane Patel, Hypothyroidism, [address] INBOUND CALL CENTER REPRESENTATIVE, ADULT EDUCATION TEACHER unspecified type [place], [place] [address] 100 [facility] (Primary Dx) [phone] [place], [place] [address] Social History Tobacco Use [...] ry documented in this encounter Care Teams Assistant Counsel Relationship Specialty Start Date End Date Adriane Patel, INBOUND CALL CENTER REPRESENTATIVE, ADULT EDUCATION TEACHER PCP - General 09/22/17 07/06/19 100 [facility] [place] [address] documented as of this encounter
--- OUTSIDE RECORDS SUMMARY | 2021-12-10 15:22 | XMS_ITS | Encounter Summary ---
:1945 Author Organization [facility] Address [address] [place] [address] Care Team Providers Name Role Phone Adriane Patel PROTECTION CONSULTANT, TAPPET ADJUSTER Primary Care Provider [phone] Reason for Visit Reason Onset Date Comments UA 07/15/2018 UA RESULTS Encounter Details Date Type Department Care Team Description 07/15/2018 Telephone [place] Adriane Patel, UA (UA RESULTS) [address] PROTECTION CONSULTANT, [place], [place] [address] [address] [facility] [address] [phone] [place], [place] [address] Social History Tobacco Use [...] on filedocumented in this encounter Care Teams Behavior Analyst Relationship Specialty Start Date End Date Adriane Patel APRN, TAPPET ADJUSTER PCP - General 09/22/17 07/06/[address] [place] [address] [place] [address] documented as of this encounter
--- OUTSIDE RECORDS SUMMARY | 2021-12-10 15:22 | XMS_ITS | Encounter Summary ---
:1945 Author Organization [facility] Address [address] [place] [address] Care Team Providers Name Role Phone Adriane Patel Ronak SENIOR ENVIRONMENTAL PRACTICE LEADER, EVENT SPECIALIST FOOD DEMONSTRATOR Primary Care Provider [phone] Encounter Details Date Type Department Care Team Description 07/07/2018 Lab SE Lab Type 2 diabetes mellitus wit h [address] [facility] other specified complication , [place] [address] without long-term current us e [phone] of insulin (HCC ) Social History Tobacco [...] CDT) athologist Signature GFR 37 (A) 07/07/2018 [facility] 5:59 PM CDT CENTER [facility] 45 (A) 07/07/2018 [facility] [place] GFR 5:59 PM T CENTER [facility] Comment: [...] Number [facility] [address] [place] [address] (ABNORMAL) Hemoglobin A1c (07/07/2018 4:35 PM CDT) Analysis Performed At Patho logist Time Signature Hemoglobin A1C 8.7 (H) 4.0 - 5.6 07/07/2018 [place] % A1C 5:44 PM CDT MEDICAL CENTER [...] 5:26 Venous) CDT PM CDT Adriane Patel SENIOR ENVIRONMENTAL PRACTICE LEADER, EVENT SPECIALIST FOOD DEMONSTRATOR LAB BLOOD ORDERABLES Performing Organization Address [facility] Code Phon e Number [facility] [address] [place] [address] (ABNORMAL) Basic metabolic panel (07/07/2018 4:35 PM CDT) Analysis Performed At Patho logist Time Signature Sodium 141 135 - 145 07/07/2018 [facility] mEq/L 5:59 PM [facility] Potassium 4.2 3.5 - 5.1 07/07/2018 [facility] mEq/L 5:59 PM [facility] Chloride 108 (H) 98 - 107 07/07/2018 [facility] mEq/L 5:59 PM [facility] CO2 26 22 - 29 07/07/2018 [facility] mmol/L 5:59 PM [facility] Creatinine 1.4 (H) 0.4 - 1.2 07/07/2018 [facility] mg/dL 5:59 PM [facility] BUN 22 5 - 25 07/07/2018 [facility] mg/dL 5:59 PM [facility] Glucose 181 (H) 70 - 100 07/07/2018 [facility] mg/dL 5:59 PM [facility] Calcium, 9.7 8.4 - 10.2 07/07/2018 [facility] Total,S mg/dL 5:59 PM [facility] Fasting? No 07/07/2018 [facility] 4:35 PM [facility] Specimen Anatomical Collection Method Collection Time Receive d Time (Source) Location / / Volume Laterality Blood 07/07/2018 4:35 PM 9 5:26 CDT PM CDT Bacilio DELA CRUZ LAB BLOOD ORDERABLES Performing Organization Address [facility] Phon e Number [facility] [address] [place] [address] documented in this encounter Visit Diagnoses Diagnosis Type 2 diabetes mellitus with other spec ified complication, without long-term current use of insulin (HCC) documented in this encounter Care Teams Inspecting And Testing Lead Hand Relationship Specialty Start Date End Date Adriane Patel APRN, EVENT SPECIALIST FOOD DEMONSTRATOR PCP - General 09/22/17 07/06/19 100 [facility] [place] [address] documented as of this encounter
--- OUTSIDE RECORDS SUMMARY | 2021-12-10 15:22 | XMS_ITS | Encounter Summary ---
:1945 Author Organization [facility] Address [address] [place] [address] Care Team Providers Name Role Phone Adriane Patel SPORTS EQUIPMENT REPAIRER, ASSISTANT PRINTER FLOOR COVERING Primary Care Provider [phone] Reason for Referral Consultation (Routine) - Closed Specialty Diagnoses / Procedures Referred By Contact Refer red To Contact Endocrinology Diagnoses Type 2 diabetes mellitus with other specified complication, without long-term current use of insulin (HCC) Bacilio Stewart MBBS [address], [place] [address] Referral ID Status Reason Start Date Expiration Date Visits V isits Requested Authorized [id number] Closed Specialty 07/19/2018 07/20/2019 1 1 Services Required Scheduling Instructions Staff from this department will contact the patient to schedule an appointment. Reason for Visit Reason Onset Date Comments question 07/16/2018 Encounter Details Date Type Department Care Team Description 07/16/2018 Telephone Endocrinology Bacilio Stewart MBBS question [address] [facility] [address] [address] [place] [address] (Wo rk) Social History Tobacco Use Types [...] 12/23/2018 organizations such as baptism groups, unions, [employer] or athletic groups, or school groups? How [...] Primary documented in this encounter Care Teams Meter Technician Relationship Specialty Start Date End Date Adriane Patel, SPORTS EQUIPMENT REPAIRER, ASSISTANT PRINTER FLOOR COVERING PCP - General 09/22/17 07/06/19 100 [facility] [place] [address] documented as of this encounter
--- OUTSIDE RECORDS SUMMARY | 2021-12-10 15:22 | XMS_ITS | Encounter Summary ---
:1945 Author Organization [facility] Address [address] [place] [address] Care Team Providers Name Role Phone Adriane Patel LINK CUTTER, CLOTH WASHER BACK TENDER Primary Care Provider [phone] Reason for Visit Reason Onset Date Comments Referral 06/21/2018 Encounter Details Date Type Department Care Team Description 06/21/2018 Telephone Chuckie Pierre Adriane Patel, Referral [address] LINK CUTTER, CLOTH WASHER BACK TENDER [place], [place] [address] [address] [facility] [address] [phone] [place], [place] [address] Social History Tobacco Use [...] 06/22/2018 8:40 AM CDT Please fax to [facility]. Telephone Encounter - Adriane Patel APRN, LEONARD [...] She would like this done at [facility]. documented in this encounter Plan of Treatment Not on filedocumented as of this encounter Visit Diagnoses Not on filedocumented in this encounter Care Teams Medical Massage Therapist Relationship Specialty Start Date End Date Adriane Patel APRN, CLOTH WASHER BACK TENDER PCP - General 09/22/17 07/06/19 100 [facility] [place] [address] documented as of this encounter
--- OUTSIDE RECORDS SUMMARY | 2021-12-10 15:22 | XMS_ITS | Encounter Summary ---
:1945 Author Organization [facility] Address [address] [place] [address] Care Team Providers Name Role Phone Adriane Patel SUPERINTENDENT CONSTRUCTION, DIRECTOR SOCIAL Primary Care Provider [phone] Encounter Details Date Type Department Care Team Description 08/16/2018 Telephone Chuckie Pierre Adriane Patel, [address] SUPERINTENDENT CONSTRUCTION, DIRECTOR SOCIAL [place], [place] [address] [address] [facility] [address] [phone] [place], [place] [address] Social History Tobacco Use [...] Marcial is calling because she saw her spot machine operator, Dr. Currie at [place]. He told her that her cholesterol is [...] on filedocumented in this encounter Care Teams Voice Over Announcer Relationship Specialty Start Date End Date Adriane Patel APRN, DIRECTOR SOCIAL PCP - General 09/22/17 07/06/[address] [place] [address] [place] [address] documented as of this encounter
--- OUTSIDE RECORDS SUMMARY | 2021-12-10 15:22 | XMS_ITS | Encounter Summary ---
:1945 Author Organization [facility] Address [address] [place] [address] Care Team Providers Name Role Phone Adriane Patel Ronak VISION CARE ASSOCIATE, INTELLIGENCE INTERN Primary Care Provider [phone] Reason for Visit Reason Comments Diabetes Encounter Details Date Type Department Care Team Description 08/27/2018 Office Visit SE Endocrinology Bacilio Stewart, Type 2 diabetes mellitus wit h other specified complication, unspecified whether longterm insulin use (HCC) (Primary Dx); [address] [facility] MBBS Hyperlipidemia, unspecified hyperlipidem ia type; [place] [address] [place] [address] Essential hypertension; [phone] [place], [place] Stage 3 chroni c kidney disease ([facility]) [address] Social History Tobacco Use Types Packs/Day Years [...] to start basal insulin after lastvisit. Our adult educator, Denny Potts, has been regularly in [...] Last eye exam showed no retinopathy in [place]. Denies any numbness or tingling sensation. No [...] file Gets together: Not on file Attends confucianist service: Not on file Active member of [...] with the plan. Bacilio Stewart MD Staff Toy Maker Adriane Patel APRN, LEONARD - 08/27/2018 9:30 AM CDT Reviewed. documented in this encounter Plan of Treatment Not on filedocumented as of this encounter Results (ABNORMAL) Hemoglobin A1c (10/29/2018 11:40 AM CDT) [facility] Time Signature Hemoglobin A1C 8.0 (H) 4.0 - 5.6 10/29/2018 [place] % A1C 7:20 PM CDT MEDICAL CENTER [...] Address City/State/ZIP Code Phon e Number [facility] [address] [place] [address] documented in this encounter Visit Diagnoses Diagnosis Type 2 diabetes mellitus with other spec ified complication, unspecified whether longterm insulin use (HCC) - Primary Hyperlipidemia, unspecified hyperlipidem ia type Essential hypertension Unspecified essential hypertension Stage 3 chronic kidney disease (HCC) documented in this encounter Care Teams Hiv Cts Specialist Relationship Specialty Start Date End Date Adriane Patel, VISION CARE ASSOCIATE, INTELLIGENCE INTERN PCP - General 09/22/17 07/06/[address] [place] [address] documented as of this encounter
--- OUTSIDE RECORDS SUMMARY | 2021-12-10 15:22 | XMS_ITS | Encounter Summary ---
:[address] [facility] Address [address] [place] [address] Care Team Providers Name Role Phone Adriane Patel SENIOR MICROSTRATEGY DEVELOPER, HELPER CHICKEN FARM Primary Care Provider [phone] Encounter Details Date Type Department Care Team Description 05/12/2018 Orders Only Chuckie Pierre Adriane Patel, Type 2 diabetes [address] SENIOR MICROSTRATEGY DEVELOPER, HELPER CHICKEN FARM mellitus with other [place] [address] [place] [address] [place] [address] complication, without [phone] long-ter m current use of insulin (HCC [...] A1C 8.5 (H) 4.0 - 5.6 05/25/2018 [place] % A1C 1:14 PM CDT MEDICAL CENTER [...] CDT 12:36 PM CDT Adriane Patel APRN, HELPER CHICKEN FARM LAB BLOOD ORDERABLES Performing Organization Address City/State/ZIP Code Phon e Number [facility] [address] [place] [address] Cologuard (05/12/2018 5:00 AM CDT) [facility] Method Time Signature Cologuard Negative Not Applicable EXACT result [facility], EMBI Comment: A negative result indicates a low [...] et al, N Eng l J Med 2014;370(14):8711-3445) ?? COLOG UARD RE-SCREENING RECOMMENDATION: Periodic routine colorectal cancer screening is an important part of preventive healthcare for asymptomatic persons at average r isk for colorectal cancer. ??Following a negative Cologuard result, the [employer] Cancer Society and U.S. Multi-Society Task Force screening guidelines recommend a Cologuard re-screening interval of 3 years. ??References: [place] Cance r Society (ACS). Colorectal cancer prevention and early detection. [place], [place]: [place] [employer] Society; [updated 2015Jun 09]. https://www.cancer.org/cancer/colo x-wbxoyc-mggbib/ghcsfokpj-uaenjqrgh-zpkc ing/acs-recommendations.html. Accessed October 16, 2017; Johnnie MAJANO, Merced KING, Jasper MurrayK, Colorectal Cancer Screening: Recommendations for Physicians and Patients f rom the U.S. Multi-Society Task Force on Colorectal Cancer Screening, Am J Gastroenterology 2017; 112:7644-8677. Test Type: Composite algorithmic analysi s of [...] can be accessed at the following location: www.Convo/results. ??Additional description of the Cologuard test process, warnings and precautions can be found at www.cologuardtest.com. Rx Only. [employer], [address] [place] [address], [address], [place], [address], , Clinical Laboratory Software Consultant, Luciana Dodge, Ph.D., [facility], CLIA NO: [id number] Specimen Anatomical Collection Method Collection Time Receive d Time (Source) Location / / Volume Laterality 05/12/2018 5:00 AM 9 3:30 CDT PM CDT Adriane Patel APRN, LEONARD LAB BODY FLUIDS AND STOOL S ORDERABLES Performing Organization Address City/State/ZIP Code Phon e Number [employer], [address] [place] [address] [facility] [address] documented in this encounter Visit Diagnoses Diagnosis Type 2 diabetes mellitus with other spec ified complication, without long-term current use of insulin (HCC) - Primary documented in this encounter Care Teams Senior Research Associate Relationship Specialty Start Date End Date Adriane Patel APRN, HELPER CHICKEN FARM PCP - General 09/22/17 07/06/19 100 [facility] [place] [facility] [place] [address] documented as of this encounter
--- OUTSIDE RECORDS SUMMARY | 2021-12-10 15:22 | XMS_ITS | Encounter Summary ---
:1945 Author Organization [facility] Address [address] [place] [address] Care Team Providers Name Role Phone Adriane Patel HEADER UP, MARINE ENGINEER CPVEC Primary Care Provider [phone] Reason for Visit Reason Onset Date Comments Requesting results and referral 07/05/2018 Encounter Details Date Type Department Care Team Description 07/05/2018 Telephone [place] Adriane Patel, Requesting results and [address] HEADER UP, MARINE ENGINEER CPVEC referral [place], [place] [address] [address] [facility] [address] [phone] [place], [place] [address] Social History Tobacco Use [...] Notes Telephone Encounter - Adriane Patel APRN, MARINE ENGINEER CPVEC - 07/05/2018 2:14 PM CDT This referral has been completed. Telephone Encounter - Lana Knight LPN - 07/05/2018 1:44 PM CDT She would like a second opinion on the HbgA1c. She feels that she has been high for sometime. She wants to talk with the special. She would like to see [facility] endocrinology. Telephone Encounter - Adriane Patel APRN, [...] areferral to alia Alfaro in endocrinology at [facility]. Pt gave a fax number for the referral of [phone]. Call Pt to advise. documented in this encounter Plan of Treatment Not on filedocumented as of this encounter Visit Diagnoses Not on filedocumented in this encounter Care Teams Upholstery Restorer Relationship Specialty Start Date End Date Adriane Patel APRN, LEONARD PCP - General 09/22/17 07/06/[address] [place] [address] [place] [address] documented as of this encounter
--- OUTSIDE RECORDS SUMMARY | 2021-12-10 15:22 | XMS_ITS | Encounter Summary ---
:[address] [facility] Address [address] [place] [address] Care Team Providers Name Role Phone Adriane Patel ADVERTISING SPECIALIST, METAL MODEL BUILDER Primary Care Provider [phone] Reason for Visit Reason Comments Med Refill Encounter Details Date Type Department Care Team Description 06/22/2018 Refill [place] Adriane Patel, Anxiety (Primary Dx) [address] ADVERTISING SPECIALIST, METAL MODEL BUILDER [place], [place] [address] [address] [facility] [address] [phone] [place], [place] [address] Social History Tobacco Use [...] 06/24/2018 1:32 PM CDT Rx faxed to [facility] as requested. Telephone Encounter - Ana Cristina Prado MA - 06/24/2018 1:28 PM CDT Please fax to [facility]. Telephone Encounter - Adriane Patel APRN, LEONARD - 06/24/2018 1:27 PM CDT Please fax to [facility]. Thanks, Suresh Telephone Encounter - Margareth Sanchez RN - 06/24/2018 12:59 PM CDT Patient would like to use [facility] in Telephone Encounter - Luciana Albarado - 06/24/2018 12:06 PM CDT Pt stated there should be two refills coming through and she would prefer to have them filled at [facility]. Call Pt as necessary. Telephone Encounter - Adriane Patel APRN, LEONARD - 06/24/2018 9:39 AM CDT Please verify with the patient where she would like this faxed to, it appears that came from the [place] pharmacy as requested. Thanks Suresh Telephone Encounter [...] unspecified documented in this encounter Care Teams Fresh Meat Grader Relationship Specialty Start Date End Date Adriane Patel APRN, METAL MODEL BUILDER PCP - General 09/22/17 07/06/19 [address] [place] [address] documented as of this encounter
--- OUTSIDE RECORDS SUMMARY | 2021-12-10 15:22 | XMS_ITS | Encounter Summary ---
:1945 Author Organization Address [address] [place] [address] Care Team Providers Name Role Phone Adriane Patel APRN, CNP Primary Care Provider [phone] Reason for Referral Consultation (Routine) - Closed Specialty Diagnoses / Procedures Referred By Contact Refer red To Contact Diagnoses Lower extremity edema Adriane Patel, [facility] LEONARD [facility] - [address] [address] [place] [address] Phone: Fax: Referral ID Status Reason Start Date Expiration Date Visits Requ ested Visits Authorized [id number] Closed 07/18/2018 07/19/2019 1 1 Reason for Visit Reason Comments UTI Encounter Details Date Type Department Care Team Description 07/15/2018 Office Visit [place] Adriane Patel Lower extremity edema (Prima ry Dx); [address] , LEONARD RESENDEZ Dysuria; [place], [place] [address] [facility] Anemia, unspecified type; [address] [place] [address] Rosacea [phone] Social History Tobacco Use Types Packs/Day Years [...] No 12/23/2018 organizations such as pentecostal groups, [employer], [employer] or athletic groups, or school groups? How [...] BNP 267 (H) 5 - 125 07/16/2018 [facility] pg/mL 1:24 PM CDT [...] CDT 12:30 PM CDT Adriane Patel APRN, SUPERVISOR MACHINE SETTER LAB BLOOD ORDERABLES Performing Organization Address City/State/ZIP Code Phon e Number [facility] [address] [place] [id number] Urine culture (clean catch) (07/15/2018 4:05 PM CDT) [facility] gist Method Time Signature Urine Culture <10,000 07/16/2018 [place] cfu/ml No 12:55 PM CDT [facility] further ID. LABORATORY Specimen Anatomical Collection Method Collection Time Receive d Time (Source) Location / / Volume Laterality Urine, Clean 07/15/2018 4:05 PM 9 Catch CDT 12:35 PM CDT Narrative [facility] - 06/18 12:55 PM CDT Patient does not have an Amoxicillin or PCN allergy Adriane Patel APRN, CNP LAB MICROBIOLOGY - GENERA L ORDERABLES Performing Organization Address City/State/ZIP Code Phon e Number [facility] [address] [place] [address] (ABNORMAL) Urinalysis with reflex microscopic (clean catch) (07/15/2018 4:00 PM CDT) [facility] Method Time Signature Type CLEAN [...] PM CDT [place] Specific 1.020 1.000 07/15/2018 [facility] [place], ->=1.030 4:16 PM CDT [place] Urine Blood, Urine TRACE (A) NEGATIVE 07/15/2018 [facility] 4:16 PM CDT [place] pH, Urine 5.5 5.0 - 7.0 07/15/2018 [facility] 4:16 PM CDT [place] Protein, NEGATIVE NEGATIVE-TRA 07/15/2018 [facility] Urine CE mg/dL 4:16 PM CDT [place] Urobilinogen, 0.2 0.2 - 1.0 07/15/2018 [facility] Urine E.U./dL 4:16 PM CDT [place] [...] [facility] [place] [address] [place] [address] documented in this encounter Visit Diagnoses Diagnosis Lower extremity edema - Primary Edema Dysuria Anemia, unspecified type Rosacea Dysuria Lower extremity edema Edema documented in this encounter Care Teams Imagery Analyst Relationship Specialty Start Date End Date Adriane Patel APRN, SUPERVISOR MACHINE SETTER PCP - General 09/22/17 07/06/19 100 [facility] [place] [address] documented as of this encounter
--- OUTSIDE RECORDS SUMMARY | 2021-12-10 15:22 | XMS_ITS | Encounter Summary ---
:1945 Author Organization [facility] Address [address] [place] [address] Care Team Providers Name Role Phone Adriane Patel Ronak BIODIESEL PRODUCTION ASSOCIATE, FLOOR SPECIALIST Primary Care Provider [phone] Encounter Details Date Type Department Care Team Description 05/24/2018 [facility] Type 2 diabetes mellitus wit h other specified complication, without long-term current use of insulin (HCC); [address] Dysuria [place], [place] [address] Social History Tobacco Use [...] A1C 8.5 (H) 4.0 - 5.6 05/25/2018 [place] % A1C 1:14 PM CDT [facility] Comment: Reference Range [...] CDT 12:36 PM CDT Adriane Patel APRN, FLOOR SPECIALIST LAB BLOOD ORDERABLES Performing Organization Address City/State/ZIP Code Phon e Number [facility] [address] [place] [address] Urine culture (05/24/2018 11:33 AM CDT) Patholo gist Method Time Signature Urine Culture No Growth 05/25/2018 [place] 1:20 PM T [facility] Specimen Anatomical Collection Method Collection Time Receive d Time (Source) Location / / Volume Laterality Urine, Clean 05/24/2018 11:33 05/25/2018 1:09 Catch AM CDT PM CDT Narrative [facility] - 040 10/2018 1:20 PM CDT Patient does not have an Amoxicillin or PCN allergy Sanam Darnell APRN, FLOOR SPECIALIST LAB MICROBIOLOGY - GENERAL O RDERABLES Performing Organization Address City/[facility]/ZIP Code Phon e Number [facility] [address] [place] [address] documented in this encounter Visit Diagnoses Diagnosis Type 2 diabetes mellitus with other spec ified complication, without long-term current use of insulin (HCC) Dysuria documented in this encounter Care Teams Adolescent Counselor Relationship Specialty Start Date End Date Adriane Patel APRN, FLOOR SPECIALIST PCP - General 09/22/17 07/06/19 100 [facility] [place] [address] documented as of this encounter
--- OUTSIDE RECORDS SUMMARY | 2021-12-10 15:22 | XMS_ITS | Encounter Summary ---
:1945 Author Organization [facility] Address [address] [place] [address] Care Team Providers Name Role Phone Adriane Patel Ronak BUTTON TUFTER, TOMB MAKER HELPER Primary Care Provider [phone] Encounter Details Date Type Department Care Team Description 07/16/2018 Orders Only [facility] Endocrinology Bacilio Stewart, Type [address] [place] [address] specified complication, [place], [place] without long-t erm [address] current use of insulin [phone] ([facility]) (Primary Dx) (Work) Social History Tobacco Use [...] More than 4 times per year 12/23/2018 restorationism services? Do you belong to any clubs [...] Primary documented in this encounter Care Teams Acid Dipper Relationship Specialty Start Date End Date Adriane Patel, BUTTON TUFTER, TOMB MAKER HELPER PCP - General 09/22/17 07/06/19 100 [facility] [place] [address] documented as of this encounter
--- OUTSIDE RECORDS SUMMARY | 2021-12-10 15:22 | XMS_ITS | Encounter Summary ---
:1945 Author Organization [facility] Address [address] [place] [address] Care Team Providers Name Role Phone Adriane Patel Ronak CHIEF PHARMACIST, HOBBIES AND CRAFTS SALES REPRESENTATIVE Primary Care Provider [phone] Encounter Details Date Type Department Care Team Description 07/15/2018 Lab [place] Dysuria; [address] Lower extremity edema [place], [place] [address] Social History Tobacco Use [...] Comments Diagnosis GLOMERULAR FILTRATION Routine 07/15/2018 5:05 PM Results for this RATE CDT procedure are i n the results section. CBC BRANCH OFFICE Routine 07/15/2018 5:05 PM Resu lts for this W/DIFF CDT procedure are i n the results section. NT-PROBNP Routine 07/15/2018 5:05 PM Lower extremity Result s for this CDT edema procedure are i n the results section. CREATININE, SERUM Routine 07/15/2018 5:05 PM Resu lts for this CDT procedure are i n the results section. SEDIMENTATION RATE, Routine 07/15/2018 5:05 PM Re sults for this AUTOMATED CDT procedure are i n the results section. C-REACTIVE PROTEIN Routine 07/15/2018 5:05 PM Res ults for this CDT procedure are i n the results section. ALT Routine 07/15/2018 5:05 PM Results f or this CDT procedure are i n the results section. AST Routine 07/15/2018 5:05 PM Results f or this CDT procedure are i n the results section. ALBUMIN Routine 07/15/2018 5:05 PM Results f or this CDT procedure are i n the results section. URINE CULTURE Routine 07/15/2018 4:05 PM Dysuria Results for this CDT procedure are i n the results section. URINALYSIS-MICROSCOPIC Routine 07/15/2018 4:00 PM Dysuria Results for this EXAM (REFLEXED) CDT procedure ar e in the results section. URINALYSIS WITH REFLEX Routine 07/15/2018 4:00 PM Dysuria Results for this MICROSCOPIC CDT procedure are i n the results section. documented in this encounter Results (ABNORMAL) Glomerular filtration rate (GFR) (07/15/2018 5:05 PM CDT) athologist Signature GFR 40 (A) 07/16/2018 [facility] 1:32 PM CDT CENTER LAB[facility] 49 (A) 07/16/2018 [facility] Welsh GFR 1:32 PM CDT CENTER LAB[facility]ORY Comment: GFR calculated from serum creatinine v alue Chronic Kidney Disease less than 60 mL/m in/1.73 m2 Kidney Failure less than 15 mL/min/1.73 m2 Note: effective 07/01/06 IDAR-Traceable MDRD Study Equation used. Specimen Anatomical Collection Method Collection Time Receive d Time (Source) Location / / Volume Laterality 07/15/2018 5:05 PM 9 5:05 CDT PM CDT Narrative [facility] - 06/18 1:32 PM CDT Called to CALL CANCELLED - RESULTS FAXED , , 07:51 07/16/2018 [id number] Outside Referring Lab Provider LAB BLOOD ORDERABLES Performing Organization Address City/State/ZIP Code Phon e Number [facility] [address] [place] [address] (ABNORMAL) CBC Branch Off w/Diff (07/15/2018 5:05 PM CDT) [facility] gist Method Time Signature WBC 7.3 3.5 - 10.5 07/15/2018 [facility] K/uL 5:12 PM CDT [place] RBC 3.68 (L) 3.90 - 07/15/2018 [facility] 5.00 M/uL 5:12 PM CDT [place] Hemoglobin 10.9 (L) 12.0 - 07/15/2018 [facility] 15.5 g/dL 5:12 PM CDT [place] Hematocrit 33.1 (L) 35.0 - 07/15/2018 [facility] 44.0 % 5:12 PM CDT [place] Platelets 191 150 - 450 07/15/2018 [facility] K/uL 5:12 PM CDT [place] MCV 89.9 81.6 - 07/15/2018 [facility] 98.3 fL 5:12 PM CDT [place] MCH 29.6 26.0 - 07/15/2018 [facility] 32.0 pg 5:12 PM CDT [place] MCHC 32.9 32.0 - 07/15/2018 [facility] 36.0 g/dL 5:12 PM CDT [place] RDW 13.0 11.9 - 07/15/2018 [facility] 15.5 % 5:12 PM CDT [place] Lymphocytes % 19.1 18.0 - 07/15/2018 [facility] 45.0 % 5:12 PM CDT [place] Mid-size Cells 8.6 3.3 - 10.1 07/15/2018 [facility] % 5:12 PM CDT [place] Granulocytes/Jean Claude 72.3 45.8 - 07/15/2018 [facility] trophils 73.7 % 5:12 PM CDT [place] Lymphocytes 1.4 0.9 - 2.9 07/15/2018 [facility] Absolute K/uL 5:12 PM CDT [place] MIDS Absolute 0.6 0.2 - 0.8 07/15/2018 [facility] K/uL 5:12 PM CDT [place] Granulocytes/Jean Claude 5.3 2.1 - 8.7 07/15/2018 [facility] trophils K/uL 5:12 PM CDT [place] Absolute Specimen Anatomical Collection Method Collection Time Receive d Time (Source) Location / / Volume Laterality 07/15/2018 5:05 PM 9 5:11 CDT PM CDT Outside Referring Lab Provider LAB BLOOD ORDERABLES Performing Organization Address City/State/ZIP Code Phon e Number [facility] [address] [place] [address] AST (07/15/2018 5:05 PM CDT) athologist Signature AST 25 8 - 43 U/L 07/16/2018 [facility] 1:32 PM CDT [facility] Specimen Anatomical Collection Method Collection Time Receive d Time (Source) Location / / Volume Laterality 07/15/2018 5:05 PM 9 CDT 12:40 PM CDT [facility] - 06/18 1:32 PM CDT Called to CALL CANCELLED - RESULTS FAXED , , 07:51 07/16/2018 [id number] Outside Referring Lab Provider LAB BLOOD ORDERABLES Performing Organization Address City/State/ZIP Code Phon e Number [facility] [address] [place] [address] (ABNORMAL) C-reactive protein ([facility]) (07/15/2018 5:05 PM CDT) athologist Signature CRP 21.6 (H) 0.0 - 9.9 07/16/2018 [facility] mg/L 1:39 PM CDT CENTER [facility] Comment: . Specimen Anatomical Collection Method Collection Time Receive d Time (Source) Location / / Volume Laterality 07/15/2018 5:05 PM 9 CDT 12:30 PM CDT [facility] - 06/18 1:39 PM CDT Called to CALL CANCELLED - RESULTS FAXED , , 07:51 07/16/2018 [id number] Outside Referring Lab Provider LAB BLOOD ORDERABLES Performing Organization Address City/State/ZIP Code Phon e Number [facility] [address] [place] [address] (ABNORMAL) Creatinine, Serum (07/15/2018 5:05 PM CDT) athologist Signature Creatinine 1.3 (H) 0.4 - 1.2 07/16/2018 [facility] mg/dL 1:32 PM CDT [facility]ENTER [facility] Specimen Anatomical Collection Method Collection Time Receive d Time (Source) Location / / Volume Laterality 07/15/2018 5:05 PM 9 CDT 12:40 PM CDT Narrative [facility] - 06/18 1:32 PM CDT Called to CALL CANCELLED - RESULTS FAXED , , 07:51 07/16/2018 [id number] Outside Referring Lab Provider LAB BLOOD ORDERABLES Performing Organization Address City/[facility]/ZIP Code Phon e Number [facility] [address] [place] [address] ALT (07/15/2018 5:05 PM CDT) athologist Signature ALT (SGPT) 22 0 - 34 U/L 07/16/2018 [facility] 1:32 PM CDT [facility]ENTER [facility] Specimen Anatomical Collection Method Collection Time Receive d Time (Source) Location / / Volume Laterality 07/15/2018 5:05 PM 9 CDT 12:40 PM CDT Narrative [facility] - 06/18 1:32 PM CDT Called to CALL CANCELLED - RESULTS FAXED , , 07:51 07/16/2018 [id number] Outside Referring Lab Provider LAB BLOOD ORDERABLES Performing Organization Address City/[facility]/ZIP Code Phon e Number [facility] [address] [place] [address] Albumin (07/15/2018 5:05 PM CDT) athologist Signature Albumin, Serum 4.0 3.5 - 5.0 07/16/2018 [facility] g/dL 1:32 PM CDT [facility]ENTER [facility] Specimen Anatomical Collection Method Collection Time Receive d Time (Source) Location / / Volume Laterality 07/15/2018 5:05 PM 9 CDT 12:40 PM CDT Narrative [facility] - 06/18 1:32 PM CDT Called to CALL CANCELLED - RESULTS FAXED , , 07:51 07/16/2018 [email or web address] Outside Referring Lab Provider LAB BLOOD ORDERABLES Performing Organization Address City/[facility]/ZIP Code Phon e Number [facility] [address] [place] [address] (ABNORMAL) ESR-Sed rate (07/15/2018 5:05 PM CDT) P athologist Signature Sed Rate 74 (H) 0 - 29 07/16/2018 [facility] mm/hr 1:35 PM CDT [facility]ENTER [facility] Specimen Anatomical Collection Method Collection Time Receive d Time (Source) Location / / Volume Laterality 07/15/2018 5:05 PM 9 CDT 12:37 PM CDT Narrative [facility] - 06/18 1:35 PM CDT Called to CALL CANCELLED - RESULTS FAXED , , 07:51 07/16/2018 [email or web address] Outside Referring Lab Provider LAB BLOOD ORDERABLES Performing Organization Address [place] [facility]/ZIP Code Phon e Number [facility] [address] [place] [address] (ABNORMAL) BNPNT (07/15/2018 5:05 PM CDT) P athologist Signature BNP 267 (H) 5 - 125 07/16/2018 [facility] pg/mL 1:24 PM CDT CENTER LAB[facility] [...] CNP LAB BLOOD ORDERABLES Performing Organization Address City/[facility]/ZIP Code Phon e Number [facility] [address] [place] [address] Urine culture (clean catch) (07/15/2018 4:05 PM CDT) [facility] gist Method Time Signature Urine Culture <10,000 07/16/2018 [place] cfu/ml No 12:55 PM CDT [facility] further ID. LABORATORY Specimen Anatomical Collection Method Collection Time Receive d Time (Source) Location / / Volume Laterality Urine, Clean 07/15/2018 4:05 PM 9 Catch CDT 12:35 PM CDT Narrative [facility] - 06/18 12:55 PM CDT Patient does not have an Amoxicillin or PCN allergy Adriane Patel APRN, CNP LAB MICROBIOLOGY - GENERA L ORDERABLES Performing Organization Address City/[facility]/ZIP Code Phon e Number [facility] [address] [place] [address] (ABNORMAL) Urinalysis-Microscopic Exam (07/15/2018 4:00 PM CDT) [facility] Method Time Signature Casts, urine NONE SEEN 0-2 Hyaline 07/15/2018 [facility] /lpf 4:16 PM CDT [place] Significant NONE SEEN None Seen 07/15/2018 [facility] casts, urine /lpf 4:16 PM CDT [place] RBC, Urine 11-20 (A) 0 - 3 /hpf 07/15/2018 [facility] 4:16 PM CDT [place] WBC, Urine 11-20 (A) /hpf 07/15/2018 [facility] 4:16 PM CDT [place] Comment: Male Ref Range ? 0-3/hpf Female Ref Range ?? 0-10/hpf Squamous Epithelial, 1+ (A) Few /lpf 07/15/2018 4:16 PM [facility] [place] Urine CDT Trans Epithelial, NONE SEEN 0 - 3 /hpf 07/15/2018 4:16 PM [facility] [place] Urine CDT Renal Tubular Cells, NONE SEEN 0 - 1 /hpf 07/15/2018 4:16 PM [facility] [place] Urine CDT Bacteria, Urine 2+ (A) None Seen /hpf 07/15/2018 4:16 PM [facility] [place] CDT Specimen Anatomical Collection Method Collection Time Receive d Time (Source) Location / / Volume Laterality 07/15/2018 4:00 PM 9 4:00 CDT PM CDT Adriane Patel APRN, HOBBIES AND CRAFTS SALES REPRESENTATIVE LAB URINE ORDERABLES Performing Organization Address City/State/ZIP Code Phon e Number [facility] [place] [address] [place] [address] (ABNORMAL) Urinalysis with reflex microscopic (clean catch) (07/15/2018 4:00 PM CDT) [facility] Method Time Signature Type CLEAN CATCH 07/15/2018 [facility] 4:16 PM CDT [place] Color, Urine STRAW YELLOW 07/15/2018 [facility] 4:16 PM CDT [place] Clarity, HAZY (A) CLEAR 07/15/2018 [facility] Urine 4:16 PM CDT [place] Glucose, NEGATIVE NEGATIVE 07/15/2018 [facility] Urine mg/dL 4:16 PM CDT [place] Bilirubin, NEGATIVE NEGATIVE 07/15/2018 [facility] Urine 4:16 PM CDT [place] Ketones, NEGATIVE NEGATIVE 07/15/2018 [facility] Urine mg/dL 4:16 PM CDT [place] Specific 1.020 1.000 07/15/2018 [facility] [place], ->=1.030 4:16 PM CDT [place] Urine Blood, Urine TRACE (A) NEGATIVE 07/15/2018 [facility] 4:16 PM CDT [place] pH, Urine 5.5 5.0 - 7.0 07/15/2018 [facility] 4:16 PM CDT [place] Protein, NEGATIVE NEGATIVE-TRA 07/15/2018 [facility] Urine CE mg/dL 4:16 PM CDT [place] Urobilinogen, 0.2 0.2 - 1.0 07/15/2018 [facility] Urine E.U./dL 4:16 PM CDT [place] Nitrite, NEGATIVE NEGATIVE 07/15/2018 [facility] Urine 4:16 PM CDT [place] Leukocytes, MODERATE (A) NEGATIVE 07/15/2018 [facility] Urine 4:16 PM CDT [place] Specimen Anatomical Collection Method Collection Time Receive d Time (Source) Location / / Volume Laterality Urine (Urine, 07/15/2018 4:00 PM 07/16/19 19 4:00 Clean Catch) CDT PM CDT Adriane Patel APRN, CNP LAB URINE ORDERABLES Performing Organization Address City/State/ZIP Code Phon e Number [facility] [place] [address] [place] [address] documented in this encounter Visit Diagnoses Diagnosis Dysuria Lower extremity edema Edema documented in this encounter Care Teams Professor Of Family Medicine Relationship Specialty Start Date End Date Adriane Patel APRN, HOBBIES AND CRAFTS SALES REPRESENTATIVE PCP - General 09/22/17 07/06/19 100 [facility] [place] [address] documented as of this encounter
--- OUTSIDE RECORDS SUMMARY | 2021-12-10 15:22 | XMS_ITS | Encounter Summary ---
:1945 Author Organization [facility] Address [address] [place] [address] Care Team Providers Name Role Phone Adriane Patel HOSPITALITY MANAGER, BULB PLANTER Primary Care Provider [phone] Reason for Visit Reason Comments Diabetes Type 2 Diabetes, now using i nsulin Consultation (Routine) - Closed Specialty Diagnoses / Procedures Referred By Contact Refer red To Contact Endocrinology Diagnoses Type 2 diabetes mellitus with other specified complication, without long-term current use of insulin (HCC) Bacilio Stewart MBBS [address] [place] [address] Referral ID Status Reason Start Date Expiration Date Visits V isits Requested Authorized [id number] Closed Specialty 07/19/2018 07/20/2019 1 1 Services Required Encounter Details Date Type Department Care Team Description 07/30/2018 Office Visit SE Diabetic Education Courtney Stewart mmad, MBBS [address] [place] [address] Type 2 diabetes 2nd Floor Yossi Potts RN 210 [place] [address] mellitus with other [address] [place] [address] complication, unspecified whe ther audio visual manager insul in use (HCC) Social History Tobacco [...] 12/23/2018 organizations such as yazidism groups, unions, fraGigaBryte or athletic groups, or school groups? How [...] Potts RN - 07/30/2018 10:00 AM CDT [facility] Patient Name: Marcial Adams Patient Identifier: [id number] Service Location: [facility] DIABETIC EDUCATION 2ND FLOOR [address] [place] [id number] Service Date: 07/30/2018 PATIENT EDUCATION- DIABETES VISIT LOCATION: [facility] REFERRING CLINICIAN: JOSE DE JESUS Austin [...] Basal Calorie Needs: Race/Ethnicity: White/ Preferred Language: Indonesian PERTINENT LABS: Hemoglobin A1C Lab Results Component [...] 2 MEDICATIONS: Last updated by: Adriane Patel, HOSPITALITY MANAGER, BULB PLANTER On: 07/15/2018 DIABETES CARE ASSESSMENT: Blood Glucose Testing: Brand/Meter: Accu-Chek Guide Test Strips: Accu-Chek Guide Lancets: Accu-Chek Fast-Clix Blood Glucose target range: 100-140 mg/dL Blood Glucose Testing: check sugars twice a day, fasting and alternating before meals and bedtime. Insulin Pump: No Glucose Sensor: No Year of diabetes diagnosis: 2007 Previous diabetes education: [facility] Pt.Ed: 2014, 2016, 2017. MEDICATION AND MONITORING [...] techniques- Competent. Sharps disposal- Competent. LOWERING RISKS [place] charter coach driver license requirements when using insulin (non-commercial) [...] records. At their request, I also reviewed [place] charter coach driver license (non-commercial) requirements for personsusing insulin. They [...] insulin adjustment, I will talk with the RN/community educator, once a week, , until I am able to confidently do this myself or until my next visit with my acct exec. Patient reported achievement: New goal DIABETES MEDICATION GOAL: To bring blood sugars into normal range, I will take my medications as directed by my primary care provider/acct exec. Patient achievement: All of the time Yossi [...] with other spec ified complication, unspecified whether audio visual manager insulin use (HCC) documented in this encounter Care Teams Greenskeeper Relationship Specialty Start Date End Date Adriane Patel, HOSPITALITY MANAGER, BULB PLANTER PCP - General 09/22/17 07/06/19 [address] [place] [address] documented as of this encounter
--- OUTSIDE RECORDS SUMMARY | 2021-12-10 15:22 | XMS_ITS | Encounter Summary ---
:1945 Author Organization [facility] Address [address] [place] [address] Care Team Providers Name Role Phone Adriane Patel Ronak BIOMETRICS EXPERIMENTALIST, TRANSPORT SPECIALIST Primary Care Provider [phone] Encounter Details Date Type Department Care Team Description 06/24/2018 Lab [place] Type 2 diabetes mellitus wit h [address] other specified complication , Chuckie Pierre [place] [address] without long-term current us e [phone] of insulin (HCC ) Social History Tobacco [...] A1C 8.5 (H) 4.0 - 5.6 06/24/2018 [place] % A1C 5:31 PM CDT MEDICAL CENTER [...] AM CDT PM CDT Adriane Patel APRN, TRANSPORT SPECIALIST LAB BLOOD ORDERABLES Performing Organization Address City/State/ZIP Code Phon e Number [facility] [address] [place] [address] documented in this encounter Visit Diagnoses Diagnosis Type 2 diabetes mellitus with other spec ified complication, without long-term current use of insulin (HCC) documented in this encounter Care Teams Automobile Racer Relationship Specialty Start Date End Date Adriane Patel APRN, TRANSPORT SPECIALIST PCP - General 09/22/17 07/06/19 100 [place] [address] documented as of this encounter
--- OUTSIDE RECORDS SUMMARY | 2021-12-10 15:22 | XMS_ITS | Encounter Summary ---
:1945 Author Organization [facility] Address [address] [place] [address] Care Team Providers Name Role Phone Adriane Patel EARLY CHILDHOOD LEAD TEACHER, TOLL LINEMAN Primary Care Provider [phone] Encounter Details Date Type Department Care Team Description 07/17/2018 Telephone [place] Adriane Patel, [address] EARLY CHILDHOOD LEAD TEACHER, TOLL LINEMAN [place], [place] [address] 100 [facility] [address] [phone] [place], [place] [address] Social History Tobacco Use [...] Notes Telephone Encounter - Adriane Patel APRN, TOLL LINEMAN - 07/17/2018 9:43 AM CDT Message left on the patient's answering machine, her she did not need treatment, referring to the urine culture. Will try and contact the patient on Thursday. documented in this encounter Plan of Treatment Not on filedocumented as of this encounter Visit Diagnoses Not on filedocumented in this encounter Care Teams Branch Retail Executive Relationship Specialty Start Date End Date Adriane Patel APRN, TOLL LINEMAN PCP - General 09/22/17 07/06/19 100 [place] [address] documented as of this encounter
--- OUTSIDE RECORDS SUMMARY | 2021-12-10 15:22 | XMS_ITS | Encounter Summary ---
:1945 Author Organization [facility] Address [address] [place] [address] Care Team Providers Name Role Phone Adriane Patel GREEN END WORKER, EMERGENCY RESPONSE OFFICER Primary Care Provider [phone] Reason for Visit Reason Comments Med Refill Encounter Details Date Type Department Care Team Description 06/30/2018 Refill [place] Adriane Patel, Type 2 diabetes [address] GREEN END WORKER, EMERGENCY RESPONSE OFFICER mellitus with other [place], [place] [address] specified complication, [place], [place] [address] without long-term current use [...] Primary documented in this encounter Care Teams Incident Coordinator Relationship Specialty Start Date End Date Adriane Patel APRN, EMERGENCY RESPONSE OFFICER PCP - General 09/22/17 07/06/19 100 [facility] [place] [address] documented as of this encounter
--- OUTSIDE RECORDS SUMMARY | 2021-12-10 15:22 | XMS_ITS | Encounter Summary ---
:1945 Author Organization [facility] Address [address] [place] [address] Care Team Providers Name Role Phone Adriane Patel APRN, CNP Primary Care Provider [phone] Reason for Referral Consultation (Routine) - Closed Specialty Diagnoses / Procedures Referred By Contact Refer red To Contact Diagnoses Left groin mass Adriane Patel, [facility] LEONARD RESENDEZ SYSTEM - [place] [address] [address] [place] [id number] Phone: Fax: Referral ID Status Reason Start Date Expiration Date Visits Requ ested Visits Authorized [id number] Closed 06/22/2018 06/23/2019 1 1 Encounter Details Date Type Department Care Team Description 06/22/2018 Orders Only [place] Adriane Patel, Left groin mass [address] LEONARD RESENDEZ (Primary Dx) [place], [place] [address] [address] [place] [address] Social History Tobacco Use Types Packs/Day Years [...] 12/23/2018 organizations such as pentecostalism groups, unions, fraMerlin or athletic groups, or school groups? How [...] Primary documented in this encounter Care Teams Scientific Advisor Relationship Specialty Start Date End Date Adriane Patel APRN, DRILLER PORTABLE PCP - General 09/22/17 07/06/19 100 [place] [address] documented as of this encounter
--- OUTSIDE RECORDS SUMMARY | 2021-12-10 15:22 | XMS_ITS | Encounter Summary ---
:1945 Author Organization [facility] Address [address] [place] [address] Care Team Providers Name Role Phone Adriane Patel APRN, CNP Primary Care Provider [phone] Reason for Referral Consultation (Routine) - Closed Specialty Diagnoses / Procedures Referred By Contact Refer red To Contact Endocrinology Diagnoses Type 2 diabetes mellitus with hyperglycemia, without long-term current use of insulin (HCC) Adriane Patel APRN, CNP 100 [place] [address] Referral ID Status Reason Start Date Expiration Date Visits V isits Requested Authorized [id number] Closed Specialty 07/05/2018 07/06/2019 1 1 Services Required Scheduling Instructions Please call the Endocrinology Spinning Frame Cleaner desk at [phone] to schedule an appointment. Encounter Details Date Type Department Care Team Description 07/05/2018 Orders Only [place] Adriane Patel, Type 2 diabetes [address] LEONARD RESENDEZ mellitus with [address] hyperglycemia, [id number] [place] [address] without long-term [phone] current use of insulin (HCC) (Primary Dx) [...] 12/23/2018 organizations such as zoroastrian groups, unions, fraFaves or athletic groups, or school groups? How [...] Primary documented in this encounter Care Teams Executive Director Of Marketing Relationship Specialty Start Date End Date Adriane Patel, FASHION STYLIST, TONE REGULATOR PCP - General 09/22/17 07/06/19 100 [facility] [place] [address] documented as of this encounter
--- OUTSIDE RECORDS SUMMARY | 2021-12-10 15:22 | XMS_ITS | Encounter Summary ---
:[address] [facility] Address [address] [place] [address] Care Team Providers Name Role Phone Adriane Patel TRAFFIC SAFETY ADMINISTRATOR, NECK PINNER Primary Care Provider [phone] Encounter Details Date Type Department Care Team Description 05/26/2018 Orders Only [place] Adriane Patel, Type 2 diabetes [address] TRAFFIC SAFETY ADMINISTRATOR, LEONARD mellitus with other [place] [address] specified [address] [place] [address] complication, without [phone] long-ter m current use of insulin (HCC [...] A1C 8.5 (H) 4.0 - 5.6 06/24/2018 [place] % A1C 5:31 PM CDT [facility] Comment: Reference Range 4.0-5.6% [...] [facility] [address] [place] [address] documented in this encounter Visit Diagnoses Diagnosis Type 2 diabetes mellitus with other spec ified complication, without long-term current use of insulin (HCC) - Primary documented in this encounter Care Teams Contact Lens Technician Relationship Specialty Start Date End Date Adriane Patel APRN, NECK PINNER PCP - General 09/22/17 07/06/19 100 [place] [address] documented as of this encounter
--- OUTSIDE RECORDS SUMMARY | 2021-12-10 15:22 | XMS_ITS | Encounter Summary ---
:1945 Author Organization [facility] Address [address] [place] [address] Care Team Providers Name Role Phone Adriane Patel Ronak RUDDN, AEROBICS INSTRUCTOR Primary Care Provider [phone] Encounter Details Date Type Department Care Team Description 08/02/2018 Telephone SE Diabetic Education 2nd Bacilio Stewart MBBS Floor [address] [facility] SE [address] [place] [address] [place], [place] [address] [phone] Social History Tobacco Use Types Packs/Day Years [...] on filedocumented in this encounter Care Teams Parts Sales Advisor Relationship Specialty Start Date End Date Adriane Patel APRN, AEROBICS INSTRUCTOR PCP - General 09/22/17 07/06/19 100 [facility] [place] [address] documented as of this encounter
--- OUTSIDE RECORDS SUMMARY | 2021-12-10 15:22 | XMS_ITS | Encounter Summary ---
:1945 Author Organization [facility] Address [address] [place] [address] Care Team Providers Name Role Phone Adriane Patel COIN MACHINE SERVICE REPAIRER, REHABILITATION COUNSELLOR Primary Care Provider [phone] Encounter Details Date Type Department Care Team Description 07/19/2018 Telephone [place] Adriane Patel, [address] COIN MACHINE SERVICE REPAIRER, REHABILITATION COUNSELLOR [place], [place] [address] [address] [facility] [address] [phone] [place], [place] [address] Social History Tobacco Use [...] Notes Telephone Encounter - Adriane Patel APRN, REHABILITATION COUNSELLOR - 07/19/2018 2:38 PM CDT The patient reports she continues to have lower extremity edema, and will contact your office auditor. documented in this encounter Plan of Treatment Not on filedocumented as of this encounter Visit Diagnoses Not on filedocumented in this encounter Care Teams E Commerce Architect Relationship Specialty Start Date End Date Adriane Patel APRN, CNP PCP - General 09/22/17 07/06/19 100 [place] [address] documented as of this encounter
--- OUTSIDE RECORDS SUMMARY | 2021-12-10 15:23 | XMS_ITS | Encounter Summary ---
:1945 Author Organization [facility] Address [address] [place] [address] Care Team Providers Name Role Phone Adriane Patel APRN, CNP Primary Care Provider [phone] Reason for Referral Consultation (Routine) - Closed Specialty Diagnoses / Procedures Referred By Contact Refer red To Contact Diagnoses Left groin mass Adriane Patel, [facility] LEONARD RESENDEZ SYSTEM - [address] [address] [place] [phone] Phone: Fax: Referral ID Status Reason Start Date Expiration Date Visits Requ ested Visits Authorized [id number] Closed 01/20/2018 07/19/2018 1 1 Scheduling Instructions Please schedule a ultrasound of the left groin where there is a mobile mass. Thanks Adriane Patel ACCOUNTING MANAGER Reason for Visit Reason Comments Leg Pain Encounter Details Date Type Department Care Team Description 01/18/2018 Office Visit [place] Adriane Patel Left groin mass (Primary Dx) ; [address] M, MAL, LEONARD Type 2 diabetes mellitus with other spec ified complication, without long-term current use of insulin (HCC); [place], [place] [address] Discoloration of skin of finger [address] [place] [address] [phone] Social History Tobacco Use Types Packs/Day Years [...] 12/23/2018 organizations such as evangelical groups, unions, fraBroad Institute or athletic groups, or school groups? How [...] Comments Blood Pressure 118/76 01/18/2018 2:52 PM FUND ACCOUNTING MANAGER Pulse 80 01/18/2018 2:52 PM FUND ACCOUNTING MANAGER Temperature 36 ??C (96.8 ??F) 01/18/2018 2:52 PM FUND ACCOUNTING MANAGER Respiratory Rate 20 01/18/2018 2:52 PM FUND ACCOUNTING MANAGER Oxygen Saturation - - Inhaled Oxygen Concentration - - Weight 81.8 kg (180 lb 5.4 oz) 01/18/2018 2:52 PM FUND ACCOUNTING MANAGER Height 161 cm (5' 3.39) 01/18/2018 2:52 PM FUND ACCOUNTING MANAGER Body Mass Index 31.56 01/18/2018 2:52 PM FUND ACCOUNTING MANAGER documented in this encounter Patient Instructions Patient InstructionsChgarfield Patel APRN, CNP - 01/18/2018 2:20 PM FUND ACCOUNTING MANAGER Ultrasound of the left groin and will call with the results Check when you had your last HGB a1C ACCOUNTING MANAGER documented in this encounter Progress Notes Adriane [...] is seeing a diabetic specialist in the [facility], who questioned why the metformin was discontinued. [...] was having a difficult time corresponding with [place] in [place], but agrees to contact them to schedule. [...] imaging of the left groin mass at [facility], and possibly refer her to general surgery. The patient will have a HGB A1c done. The patient had her flu shot today. The patient agrees to schedule her colonoscopy. Will discuss her Raynaud's symptoms with the bat boy/girl, to see if this should be evaluated [...] this planof care. Adriane Patel APRN, CNP ACCOUNTING MANAGER documented in this encounter Plan of Treatment Scheduled Referrals Name Type Priority Associated Order Schedule Diagnoses Ambulatory External Outpatient Referral Routine Left groin mas s Ordered: Referral 01/20/2018 documented as of this encounter Results (ABNORMAL) Hemoglobin A1c (07/07/2018 4:35 PM CDT) Analysis Performed At Patho logist Time Signature Hemoglobin A1C 8.7 (H) 4.0 - 5.6 07/07/2018 [place] % A1C 5:44 PM CDT [facility] Comment: Reference Range 4.0-5.6% is [...] [facility] [address] [place] [address] documented in this encounter Visit Diagnoses Diagnosis Left groin mass - Primary Type 2 diabetes mellitus with other spec ified complication, without long-term current use of insulin (HCC) Discoloration of skin of finger documented in this encounter Care Teams Tractor Trailer Technician Relationship Specialty Start Date End Date Adriane Patel APRN, LEONARD PCP - General 09/22/17 07/06/19 [address] [place] [address] documented as of this encounter
--- OUTSIDE RECORDS SUMMARY | 2021-12-10 15:23 | XMS_ITS | Encounter Summary ---
:1945 Author Organization [facility] Address [address] [place] [address] Care Team Providers Name Role Phone Adriane Patel LIFE SKILLS COORDINATOR, LONG CHAIN DYEING MACHINE OPERATOR Primary Care Provider [phone] Reason for Visit Reason Onset Date Comments NEW RX 03/23/2018 Encounter Details Date Type Department Care Team Description 03/23/2018 Telephone [place] Adriane Patel, NEW RX [address] LIFE SKILLS COORDINATOR, LONG CHAIN DYEING MACHINE OPERATOR [place], [place] [address] [address] [facility] [address] [phone] [place], [place] [address] Social History Tobacco Use [...] 2 weeks and get back to us. MILL SUPERVISOR Telephone Encounter - Adriane Patel APRN, LEONARD - 03/23/2018 4:42 PM WOOD MILL SUPERVISOR The patient can just discontinue the Januvia, as we increased her Glipizide, lets have her continue to monitor blood sugars x 2 weeks and then call us. Thanks, Suresh MILL SUPERVISOR Telephone Encounter - Ana Cristina Prado MA - 03/23/2018 4:30 PM CST Please advise MILL SUPERVISOR Telephone Encounter - Di Sloan - 03/23/2018 4:18 PM CST Suresh was going to put her on a new Rx once she was done. She is done now and would like to know what she should be on now. She uses [facility] and would like a call back so she knows what plan B is. MILL SUPERVISOR documented in this encounter Plan of Treatment Not on filedocumented as of this encounter Visit Diagnoses Not on filedocumented in this encounter Care Teams Life Science Research Assistant Relationship Specialty Start Date End Date Adriane Patel APRN, LONG CHAIN DYEING MACHINE OPERATOR PCP - General 09/22/17 07/06/19 [address] [place] [address] documented as of this encounter
--- OUTSIDE RECORDS SUMMARY | 2021-12-10 15:23 | XMS_ITS | Encounter Summary ---
:1945 Author Organization [facility] Address [address] [place] [address] Care Team Providers Name Role Phone PatelAdriane henley Ronak COIL TIER, BIOCHEMICAL ENGINEER Primary Care Provider Reason for Visit Reason Comments Follow-up Diabetes Encounter Details Date Type Department Care Team Description 04/01/2018 Office Visit [place] Adriane Patel Type 2 diabetes mellitus wit h other specified complication, without long-term current use of insulin (HCC) (Primary Dx); [address] M, MAL, LEONARD Weak urinary stream [place], [place] [address] [facility] [address] [address] [place] [address] Social History Tobacco Use Types Packs/Day Years [...] Comments Blood Pressure 128/84 04/01/2018 10:33 AM CASHIER COURTESY BOOTH Pulse 88 04/01/2018 10:33 AM [facility] Temperature 35.9 ??C (96.6 ??F) 04/01/2018 10:33 AM [facility] COURT[facility] BOOTH Respiratory Rate 16 04/01/2018 10:33 AM C[facility] COURT[facility] BOOTH Oxygen Saturation 97% 04/01/2018 10:33 AM [facility] COURT[facility] BOOTH Inhaled Oxygen Concentration - - Weight 81.4 kg (179 lb 7.3 oz) 04/01/2018 10:33 AM C[facility] COURT[facility] BOOTH Height 157.5 cm (5' 2) 04/01/2018 10:33 AM [facility] BOOTH Body Mass Index 32.82 04/01/2018 10:33 AM [facility] COURT[facility] BOOTH documented in this encounter Patient Instructions Patient InstructionsChgarfield Patel APRN, CNP - 04/01/2018 10:20 AM [facility] Glipizide 10 mg twice daily Lisinopril 2.5 mg daily IER COURTES[facility] BOOTH documented in this encounter Progress Notes Adriane [...] control of her symptoms, managed by her digital printer operator. The patient???s hemoglobin A1c on 02/15/2018 was [...] she is due for labs for her digital printer operator. ROS: GENITOURINARY: See HPI. The patient reports [...] is currently under the care of a digital printer operator, with stable medication and good control of [...] plan of care. Adriane Patel APRN, CNP [facility] documented in this encounter Plan of Treatment Not on filedocumented as of this encounter Results (ABNORMAL) Urine culture (clean catch) (04/01/2018 11:39 AM C[facility] COURTES[facility] BOOTH) [facility] Method Time Signature Urine Culture Escherichia coli 04/03/2018 [facility] >100,000 cfu/ml 8:14 AM [facility] Specimen Anatomical Collection Method Collection Time Receive d Time (Source) Location / / Volume Laterality Urine, Clean 04/01/2018 11:39 04/02/2018 Catch AM [facility] 12:50 PM CASH[facility] COURTES[facility] BOOTH Narrative [facility] - 03/19 8:14 AM CASH[facility] COURTES[facility] BOOTH Patient does not have an Amoxicillin or [...] coli Trimeth/Sulfa <=2/38 mcg/mL: Susceptible Adriane Patel COIL TIER, BIOCHEMICAL ENGINEER LAB MICROBIOLOGY - GENERA L ORDERABLES Performing Organization Address City/State/ZIP Code Phon e Number [facility] [address] [place] [address] (ABNORMAL) Urinalysis with reflex microscopic (clean catch) (04/01/2018 11:39 AM CASH[facility] COURTESY BOOTH) [facility] Method Time Signature Type COLLECTION HAT 04/01/2018 [facility] 11:52 AM [place] C[facility] COURTES[facility] BOOTH Color, Urine STRAW YELLOW 04/01/2018 [facility] 11:52 AM [place] C[facility] COURTES[facility] BOOTH Clarity, HAZY (A) CLEAR 04/01/2018 [facility] Urine 11:52 AM [place] C[facility] COURTES[facility] BOOTH Glucose, 100 (A) NEGATIVE 04/01/2018 [facility] Urine mg/dL 11:52 AM [place] [facility] COURTES[facility] BOOTH Bilirubin, NEGATIVE NEGATIVE 04/01/2018 [facility] Urine 11:52 AM [place] [facility] COURTES[facility] BOOTH Ketones, NEGATIVE NEGATIVE 04/01/2018 [facility] Urine mg/dL 11:52 AM [place] C[facility] COURTES[facility] BOOTH Specific 1.020 1.000 04/01/2018 [facility] [place], ->=1.030 11:52 AM FALLS Urine [facility] Blood, Urine NEGATIVE NEGATIVE 04/01/2018 [facility] 11:52 AM [place] CASHIER COURTESY BOOTH pH, Urine 5.0 5.0 - 7.0 04/01/2018 [facility] 11:52 AM [place] [facility] BOOTH Protein, NEGATIVE NEGATIVE-TRA 04/01/2018 [facility] Urine CE mg/dL 11:52 AM [place] [facility] BOOTH Urobilinogen, 0.2 0.2 - 1.0 04/01/2018 [facility] Urine E.U./dL 11:52 AM [place] [facility] BOOTH Nitrite, NEGATIVE NEGATIVE 04/01/2018 [facility] Urine 11:52 AM [place] [facility] COURTES[facility] BOOTH Leukocytes, MODERATE (A) NEGATIVE 04/01/2018 [facility] Urine 11:52 AM [place] [facility] COURT[facility] BOOTH Specimen Anatomical Collection Method Collection Time Receive d Time (Source) Location / / Volume Laterality Urine (Urine, 04/01/2018 11:39 04/01/2018 Clean Catch) AM [facility] 11:40 AM [facility] Adriane Patel APRN, LEONARD LAB URINE ORDERABLES Performing Organization Address City/State/ZIP Code Phon e Number [facility] [place] [address] [place] [address] documented in this encounter Visit Diagnoses Diagnosis Type 2 diabetes mellitus with other spec ified complication, without long-term current use of insulin (HCC) - Primary Weak urinary stream Slowing of urinary stream Weak urinary stream Slowing of urinary stream documented in this encounter Care Teams Chief Relay Tester Relationship Specialty Start Date End Date Adriane Patel APRN, BIOCHEMICAL ENGINEER PCP - General 09/22/17 07/06/19 100 [facility] [place] [address] documented as of this encounter
--- OUTSIDE RECORDS SUMMARY | 2021-12-10 15:23 | XMS_ITS | Encounter Summary ---
:1945 Author Organization [facility] Address [address] [place] [address] Care Team Providers Name Role Phone Adriane Patel GM, HAND CANDLE DIPPER Primary Care Provider [phone] Reason for Visit Reason Onset Date Comments EKG'S 04/22/2018 Encounter Details Date Type Department Care Team Description 04/22/2018 Telephone [place] Adriane Patel, EKG'S [address] GM, HAND CANDLE DIPPER [place], [place] [address] [address] [facility] [address] [phone] [place], [place] [address] Social History Tobacco [...] CST EKGs printed and at the front end assistant for patient to pharmacy picking tech, she is aware. EM MILL STICKER Telephone Encounter - Luciana Verena - 04/22/2018 1:39 PM CST Pt called stating she is scheduled to see a qa internship at [facility] on Thursday04/26/18 andblase said they would like her last two EKG's, prior to her visit. Call Pt as necessary. EM MILL STICKER documented in this encounter Plan of Treatment Not on filedocumented as of this encounter Visit Diagnoses Not on filedocumented in this encounter Care Teams Cemetery Worker Relationship Specialty Start Date End Date Adriane Patel APRN, HAND CANDLE DIPPER PCP - General 09/22/17 07/06/[address] [place] [address] [place] [address] documented as of this encounter
--- OUTSIDE RECORDS SUMMARY | 2021-12-10 15:23 | XMS_ITS | Encounter Summary ---
:1945 Author Organization [facility] Address [address] [place] [address] Care Team Providers Name Role Phone Adriane Patel BLEACH TESTER, STATEMENT SERVICES REPRESENTATIVE Primary Care Provider [phone] Reason for Visit Reason Onset Date Comments referral specifics needed 01/20/2018 Encounter Details Date Type Department Care Team Description 01/20/2018 Telephone [place] Adriane Patel, referral specifics [address] BLEACH TESTER, STATEMENT SERVICES REPRESENTATIVE needed [place], [place] [address] [address] [facility] [address] [phone] [place], [place] [address] Social History Tobacco Use [...] PM CST Paperwork faxed to Denis at [facility] at [phone] as requested. ITOMETRIST Telephone Encounter - Ana Cristina Prado MA - 01/22/2018 2:07 PM CST Please fax to [phone] ITOMETRIST Telephone Encounter - Adriane Patel APRN, LEONARD - 01/22/2018 11:26 AM DENSITOMETRIST Order completed. ITOMETRIST Telephone Encounter - Adriane Patel APRN, LEONARD - 01/22/2018 11:26 AM DENSITOMETRIST The order has been placed. Suresh Cm ITOMETRIST Telephone Encounter - Ana Cristina Prado MA - 01/22/2018 9:46 AM CST [place] ITOMETRIST Telephone Encounter - Luciana Albarado - 01/22/2018 9:37 AM CST Denis with [facility] called to let Suresh know to send the order with Abdomen Limited on it. Pleasefax order to [phone]. Call [phone] with any questions. ITOMETRIST Telephone Encounter - Adriane Patel APRN, LEONARD - 01/20/2018 4:06 PM DENSITOMETRIST The patient was notified the order to [place] has not been placed as I will discuss with the tech on Thursday the purpose of the order to make sure the testing is ordered correctly. ITOMETRIST Telephone Encounter - Margareth Sanchez RN - 01/20/2018 1:39 PM CST [facility] stated the referral did not state ultrasound on it. They are requesting an ultrasound order for pelvic ultrasound with dx of right groin mass be sent over to them. Please order and we will fax. ITOMETRIST Telephone Encounter - Luciana Albarado - 01/20/2018 12:25 PM CST Denis with [facility] called stating he recived the referral for Marcial regarding the open sore in left groin area, but he needs a specific type of exam to be requested on the referral. ITOMETRIST documented in this encounter Plan of Treatment Scheduled Orders Name Type Priority Associated Diagnoses Order S chedule Ultrasound Abdomen Imaging Routine Left groin mass Expect ed: 01/22/2018, Limited Expires: 2018 documented as of this encounter Results (ABNORMAL) Hemoglobin A1c (02/15/2018 1:50 PM DENSITOMETRIST) Analysis Performed At Patho logist Time Signature Hemoglobin A1C 8.2 (H) 4.0 - 5.6 02/15/2018 [facility] % A1C 6:32 PM [facility] Comment: Reference Range [...] 02/15/2018 1:50 PM 02/16/20 18 6:14 Venous) DENSITOMETRIST PM DENSITOMETRIST Adriane Patel APRN, STATEMENT SERVICES REPRESENTATIVE LAB BLOOD ORDERABLES Performing Organization Address City/State/ZIP Code Phon e Number [facility] [address] [place] [address] documented in this encounter Visit Diagnoses Diagnosis Type 2 diabetes mellitus with complicati on, without long-term current use of insulin (HCC) - Primary Left groin mass documented in this encounter Care Teams Oxygen Furnace Operator Relationship Specialty Start Date End Date Adriane Patel APRN, STATEMENT SERVICES REPRESENTATIVE PCP - General 09/22/17 07/06/19 100 [place] [address] documented as of this encounter
--- OUTSIDE RECORDS SUMMARY | 2021-12-10 15:23 | XMS_ITS | Encounter Summary ---
:1945 Author Organization [facility] Address [address] [place] [address] Care Team Providers Name Role Phone Adriane Patel Ronak SCALE TECHNICIAN, WAFER CUTTER Primary Care Provider [phone] Encounter Details Date Type Department Care Team Description 12/24/2017 Lab [place] [address] [place], [place] [address] Social History Tobacco Use [...] 10:40 Re sults for this RATE AM SUSTAINABILITY PURCHASING AGENT procedure are i n the results section. CBC BRANCH OFFICE Routine 12/24/2017 10:40 Result s for this W/DIFF AM SUSTAINABILITY PURCHASING AGENT procedure are i n the results section. CREATININE, SERUM Routine 12/24/2017 10:40 Result s for this AM SUSTAINABILITY PURCHASING AGENT procedure are i n the results section. SEDIMENTATION RATE, Routine 12/24/2017 10:40 Resu lts for this AUTOMATED AM SUSTAINABILITY PURCHASING AGENT procedure are i n the results section. C-REACTIVE PROTEIN Routine 12/24/2017 10:40 Resul ts for this AM SUSTAINABILITY PURCHASING AGENT procedure are i n the results section. ALT Routine 12/24/2017 10:40 Results for this AM SUSTAINABILITY PURCHASING AGENT procedure are i n the results section. AST Routine 12/24/2017 10:40 Results for this AM SUSTAINABILITY PURCHASING AGENT procedure are i n the results section. ALBUMIN Routine 12/24/2017 10:40 Results for this AM SUSTAINABILITY PURCHASING AGENT procedure are i n the results section. documented in this encounter Results (ABNORMAL) Glomerular filtration rate (GFR) (12/24/2017 10:40 AM SUSTAINABILITY PURCHASING AGENT) athologist Signature GFR 37 (A) 12/24/2017 [facility] 11:03 AM [facility] 45 (A) 12/24/2017 [facility] [place] GFR 11:03 AM [facility] Comment: GFR calculated from serum creatinine v alue Chronic Kidney Disease less than 60 mL/m in/1.73 m2 Kidney Failure less than 15 mL/min/1.73 m2 Note: effective 07/01/06 IDDE-Traceable MDRD Study Equation used. Specimen Anatomical Collection Method Collection Time Receive d Time (Source) Location / / Volume Laterality 12/24/2017 10:40 12/24/2017 AM SUSTAINABILITY PURCHASING AGENT 10:40 AM SUSTAINABILITY PURCHASING AGENT Narrative [facility] - 1109/2017 11:03 AM SUSTAINABILITY PURCHASING AGENT Fax results to [facility]3] Rheumatology ,[phone] contact Dr Prado [phone] Outside Referring Lab Provider LAB BLOOD ORDERABLES Performing Organization Address City/State/ZIP Code Phon e Number [facility] [address] [place] [address] (ABNORMAL) CBC Branch Off w/Diff (12/24/2017 10:40 AM SUSTAINABILITY PURCHASING AGENT) Patholo gist Method Time Signature WBC 6.7 3.5 - 10.5 12/24/2017 [facility] K/uL 11:03 AM SUSTAINABILITY PURCHASING AGENT [place] RBC 3.61 (L) 3.90 - 12/24/2017 [facility] 5.00 M/uL 11:03 AM SUSTAINABILITY PURCHASING AGENT [place] Hemoglobin 11.1 (L) 12.0 - 12/24/2017 [facility] 15.5 g/dL 11:03 AM SUSTAINABILITY PURCHASING AGENT [place] Hematocrit 32.9 (L) 35.0 - 12/24/2017 [facility] 44.0 % 11:03 AM SUSTAINABILITY PURCHASING AGENT [place] Platelets 197 150 - 450 12/24/2017 [facility] K/uL 11:03 AM SUSTAINABILITY PURCHASING AGENT [place] MCV 91.1 81.6 - 12/24/2017 [facility] 98.3 fL 11:03 AM SUSTAINABILITY PURCHASING AGENT [place] MCH 30.7 26.0 - 12/24/2017 [facility] 32.0 pg 11:03 AM SUSTAINABILITY PURCHASING AGENT [place] MCHC 33.7 32.0 - 12/24/2017 [facility] 36.0 g/dL 11:03 AM SUSTAINABILITY PURCHASING AGENT [place] RDW 12.6 11.9 - 12/24/2017 [facility] 15.5 % 11:03 AM SUSTAINABILITY PURCHASING AGENT [place] Lymphocytes % 13.0 (L) 18.0 - 12/24/2017 [facility] 45.0 % 11:03 AM SUSTAINABILITY PURCHASING AGENT [place] Mid-size Cells 9.9 3.3 - 10.1 12/24/2017 [facility] % 11:03 AM SUSTAINABILITY PURCHASING AGENT [place] Granulocytes/Jean Claude 77.1 (H) 45.8 - 12/24/2017 [facility] trophils 73.7 % 11:03 AM SUSTAINABILITY PURCHASING AGENT [place] Lymphocytes 0.9 0.9 - 2.9 12/24/2017 [facility] Absolute K/uL 11:03 AM SUSTAINABILITY PURCHASING AGENT [place] MIDS Absolute 0.7 0.2 - 0.8 12/24/2017 [facility] K/uL 11:03 AM SUSTAINABILITY PURCHASING AGENT [place] Granulocytes/Jean Claude 5.1 2.1 - 8.7 12/24/2017 [facility] trophils K/uL 11:03 AM SUSTAINABILITY PURCHASING AGENT [place] Absolute Specimen Anatomical Collection Method Collection Time Receive d Time (Source) Location / / Volume Laterality 12/24/2017 10:40 12/24/2017 AM SUSTAINABILITY PURCHASING AGENT 10:40 AM SUSTAINABILITY PURCHASING AGENT Narrative [facility] [place] - 12/24/2017 11:03 AM C Fax results to [place] [phone] contact Dr Prado [phone] Outside Referring Lab Provider LAB BLOOD ORDERABLES Performing Organization Address City/State/ZIP Code Phon e Number [facility] [place] [address] [place] [address] AST (12/24/2017 10:40 AM SUSTAINABILITY PURCHASING AGENT) athologist Signature AST 33 8 - 43 U/L 12/25/2017 [facility] 1:03 PM SUSTAINABILITY PURCHASING AGENT [facility]ENTER [facility] Specimen Anatomical Collection Method Collection Time Receive d Time (Source) Location / / Volume Laterality 12/24/2017 10:40 12/25/2017 AM SUSTAINABILITY PURCHASING AGENT 12:27 PM SUSTAINABILITY PURCHASING AGENT Narrative [facility] - 10/2017 1:03 PM SUSTAINABILITY PURCHASING AGENT Called to CALL CANCELLED - RESULTS FAXED , , 12:47 12/24/2017 [id number] Fax results to [facility]3] Rheumatology 9,[phone] Prado [phone] Outside Referring Lab Provider LAB BLOOD ORDERABLES Performing Organization Address City/[facility]/ZIP Code Phon e Number [facility] [address] [place] [address] (ABNORMAL) C-reactive protein (12/24/2017 10:40 AM SUSTAINABILITY PURCHASING AGENT) athologist [facility] CRP 22.9 (H) 0.0 - 9.9 12/25/2017 [facility] mg/L 1:43 PM SUSTAINABILITY PURCHASING AGENT [facility] Comment: . Specimen Anatomical Collection Method Collection Time Receive d Time (Source) Location / / Volume Laterality 12/24/2017 10:40 12/25/2017 AM SUSTAINABILITY PURCHASING AGENT 12:38 PM SUSTAINABILITY PURCHASING AGENT Narrative [facility] - 10/2017 1:43 PM SUSTAINABILITY PURCHASING AGENT Called to CALL CANCELLED - RESULTS FAXED , , 12:47 12/24/2017 [email or web address] Fax results to [facility]3] Rheumatology 9,[phone] Prado [phone] Outside Referring Lab Provider LAB BLOOD ORDERABLES Performing Organization Address City/State/ZIP Code Phon e Number [facility] [address] [place] [address] (ABNORMAL) Creatinine, Serum (12/24/2017 10:40 AM SUSTAINABILITY PURCHASING AGENT) athologist Signature Creatinine 1.4 (H) 0.4 - 1.2 12/24/2017 [facility] mg/dL 11:03 AM SUSTAINABILITY PURCHASING AGENT [place] Comment: . Specimen Anatomical Collection Method Collection Time Receive d Time (Source) Location / / Volume Laterality 12/24/2017 10:40 12/24/2017 AM SUSTAINABILITY PURCHASING AGENT 10:40 AM SUSTAINABILITY PURCHASING AGENT Narrative [facility] - 12/24/2017 11:[address] Fax results to [facility] [phone] contact Dr Prado [phone] Outside Referring Lab Provider LAB BLOOD ORDERABLES Performing Organization Address City/State/ZIP Code Phon e Number [facility] [place] [address] [place] [address] ALT (12/24/2017 10:40 AM SUSTAINABILITY PURCHASING AGENT) athologist Signature ALT (SGPT) 31 25 - 45 U/L 12/25/2017 [facility] 1:03 PM SUSTAINABILITY PURCHASING AGENT [facility]ENTER [facility] Comment: . Specimen Anatomical Collection Method Collection Time Receive d Time (Source) Location / / Volume Laterality 12/24/2017 10:40 12/25/2017 AM SUSTAINABILITY PURCHASING AGENT 12:27 PM SUSTAINABILITY PURCHASING AGENT Narrative [facility] - 10/2017 1:03 PM SUSTAINABILITY PURCHASING AGENT Called to CALL CANCELLED - RESULTS FAXED , , 12:47 12/24/2017 [email or web address] Fax results to [facility]3] Rheumatology 9,[phone] Prado [phone] Outside Referring Lab Provider LAB BLOOD ORDERABLES Performing Organization Address City/State/ZIP Code Phon e Number [facility] [address] [place] [address] Albumin (12/24/2017 10:40 AM SUSTAINABILITY PURCHASING AGENT) athologist Signature Albumin, Serum 4.5 3.5 - 5.0 12/25/2017 [facility] L g/dL 1:03 PM SUSTAINABILITY PURCHASING AGENT [facility]ENTER [facility] Specimen Anatomical Collection Method Collection Time Receive d Time (Source) Location / / Volume Laterality 12/24/2017 10:40 12/25/2017 AM SUSTAINABILITY PURCHASING AGENT 12:27 PM SUSTAINABILITY PURCHASING AGENT Narrative [facility] - 10/2017 1:03 PM SUSTAINABILITY PURCHASING AGENT Called to CALL CANCELLED - RESULTS FAXED , , 12:47 12/24/2017 [email or web address] Fax results to [facility]3] Rheumatology 9,[phone] Prado [phone] Outside Referring Lab Provider LAB BLOOD ORDERABLES Performing Organization Address City/State/ZIP Code Phon e Number [facility] [address] [place] [address] (ABNORMAL) ESR-Sed rate (12/24/2017 10:40 AM SUSTAINABILITY PURCHASING AGENT) P athologist Signature Sed Rate 81 (H) 0 - 29 12/25/2017 [facility] mm/hr 1:27 PM SUSTAINABILITY PURCHASING AGENT [facility] Specimen Anatomical Collection Method Collection Time Receive d Time (Source) Location / / Volume Laterality 12/24/2017 10:40 12/25/2017 AM SUSTAINABILITY PURCHASING AGENT 12:27 PM SUSTAINABILITY PURCHASING AGENT Narrative [facility] - 110 10/2017 1:27 PM SUSTAINABILITY PURCHASING AGENT Called to CALL CANCELLED - RESULTS FAXED , , 12:47 12/24/2017 AN01 Fax results to [facility] 9,[phone] Prado [phone] Outside Referring Lab Provider LAB BLOOD ORDERABLES Performing Organization Address City/[facility]/ZIP Code Phon e Number [facility] [address] [place] [address] documented in this encounter Visit Diagnoses Not on filedocumented in this encounter Care Teams De Ionizer Operator Relationship Specialty Start Date End Date Adriane Patel APRN, WAFER CUTTER PCP - General 09/22/17 07/06/19 100 [facility] [place] [address] documented as of this encounter
--- OUTSIDE RECORDS SUMMARY | 2021-12-10 15:23 | XMS_ITS | Encounter Summary ---
:1945 Author Organization [facility] Address [address] [place] [address] Care Team Providers Name Role Phone Adriane Patel COLOR WEIGHER, SPECIALIST FIELD ENGINEER Primary Care Provider [phone] Reason for Visit Reason Onset Date Comments fax 01/20/2018 Encounter Details Date Type Department Care Team Description 01/20/2018 Telephone [place] Adriane Patel, fax [address] COLOR WEIGHER, [place], [place] [address] [address] [facility] [address] [phone] [place], [place] [address] Social History Tobacco Use [...] 01/20/2018 12:12 PM CST Documents faxed to [facility] as requested. OVEMENT SPEC Telephone Encounter - Margareth Sanchez RN - 01/20/2018 11:34 AM CST Please fax referral for ultrasound to [facility]. OVEMENT SPEC documented in this encounter Plan of Treatment Not on filedocumented as of this encounter Visit Diagnoses Not on filedocumented in this encounter Care Teams Windows Server Administrator Relationship Specialty Start Date End Date Adriane Patel APRN, SPECIALIST FIELD ENGINEER PCP - General 09/22/17 07/06/[address] [place] [address] documented as of this encounter
--- OUTSIDE RECORDS SUMMARY | 2021-12-10 15:23 | XMS_ITS | Encounter Summary ---
:1945 Author Organization [facility] Address [address] [place] [address] Care Team Providers Name Role Phone Adriane Patel REPAIRER WOOD FURNITURE, SALOONKEEPER Primary Care Provider [phone] Reason for Visit Reason Onset Date Comments UTI 04/27/2018 Encounter Details Date Type Department Care Team Description 04/27/2018 Telephone [place] Adriane Patel, UTI [address] REPAIRER WOOD FURNITURE, SALOONKEEPER [place], [place] [address] 100 [facility] [address] [phone] [place], [place] [address] Social History Tobacco Use [...] filedocumented in this encounter Care Teams Customer Service Trainer Relationship Specialty Start Date End Date Adriane Patel APRN, SALOONKEEPER PCP - General 09/22/17 07/06/19 100 [facility] [place] [address] documented as of this encounter
--- OUTSIDE RECORDS SUMMARY | 2021-12-10 15:23 | XMS_ITS | Encounter Summary ---
:1945 Author Organization [facility] Address [address] [place] [address] Care Team Providers Name Role Phone Adriane Patel Ronak WEB OPERATIONS LEAD, CARPENTER CRADLE [employer] DOLLY Primary Care Provider [phone] Encounter Details Date Type Department Care Team Description 04/22/2018 Lab [place] Type 2 diabetes mellitus wit h complication, without long-term current use of insulin (HCC); [address] Dyspnea on exertion; [place], [place] [address] Subclinical hypothyroidism; [phone] Type 2 diabetes mellitus with other specified [...] Resu lts for this FILTRATION RATE AM PARTY PLANNER procedure ar e in the results section. CBC BRANCH OFFICE Routine 04/22/2018 10:33 Dyspnea on exertion Results for this W/DIFF AM PARTY PLANNER procedure are i n the results section. TROPONIN I Routine 04/22/2018 10:33 Dyspnea on exertion Resu lts for this AM PARTY PLANNER procedure are i n the results section. TSH Routine 04/22/2018 10:33 Subclinical Results for this AM PARTY PLANNER hypothyroidism procedure are in the results section. HEMOGLOBIN A1C Routine 04/22/2018 10:33 Type 2 diabetes Result s for this AM PARTY PLANNER mellitus with other procedur e are in specified the results complication, without sectio n. long-term current use of insulin (HCC) BASIC METABOLIC Routine 04/22/2018 10:33 Dyspnea on exertion R esults for this PANEL AM PARTY PLANNER procedure are i n the results section. documented in this encounter Results (ABNORMAL) Glomerular filtration rate (GFR) (04/22/2018 10:33 AM PARTY PLANNER) athologist Signature GFR 49 (A) 04/22/2018 [facility] 12:40 PM [facility] 59 (A) 04/22/2018 [facility] Brazilian GFR 12:40 PM [facility] Comment: GFR calculated from serum creatinine v alue Chronic Kidney Disease less than 60 mL/m in/1.73 m2 Kidney Failure less than 15 mL/min/1.73 m2 Note: effective 07/01/06 IDMS-Traceable MDRD Study Equation used. Specimen Anatomical Collection Method Collection Time Receive d Time (Source) Location / / Volume Laterality 04/22/2018 10:33 04/22/2018 AM [facility]NER 10:33 AM [facility]NER Adriane Patel APRN, CARPENTER [employer]LE [employer] DOLLY LAB BLOOD ORDERABLES Performing Organization Address City/State/ZIP Code Phon e Number [facility] [address] [place] [phone] (ABNORMAL) Hemoglobin A1c (04/22/2018 10:33 AM PARTY PLANNER) Analysis Performed At Patho logist Time Signature Hemoglobin A1C 9.0 (H) 4.0 - 5.6 04/22/2018 [place] % A1C 7:27 PM [facility] MEDICAL [...] (Blood, 04/22/2018 10:33 04/22/2018 6:52 Venous) AM PARTY PLANNER PM PARTY PLANNER Adriane Patel APRN, CNP LAB BLOOD ORDERABLES Performing Organization Address [facility] Code Phon e Number [facility] [address] [place] [phone] TSH (04/22/2018 10:33 AM PARTY PLANNER) athologist Signature TSH, Sensitive 2.05 0.46 - 04/22/2018 [facility] 4.68 mIU/L 8:41 PM [facility] Comment: The results from this [...] (Blood, 04/22/2018 10:33 04/22/2018 6:52 Venous) AM PARTY PLANNER PM PARTY PLANNER Adriane Patel APRN, CNP LAB BLOOD ORDERABLES Performing Organization Address [facility] Phon e Number [facility] [address] [place] [address] (ABNORMAL) CBC Branch Off w/Diff (04/22/2018 10:33 AM PARTY PLANNER) [facility] Method Time Signature WBC 7.3 3.5 - 10.5 04/22/2018 [facility] K/uL 12:43 PM [facility] [place] RBC 3.72 (L) 3.90 - 04/22/2018 [facility] 5.00 M/uL 12:43 PM [facility] [place] Hemoglobin 11.0 (L) 12.0 - 04/22/2018 [facility] 15.5 g/dL 12:43 PM [facility] [place] Hematocrit 33.7 (L) 35.0 - 04/22/2018 [facility] 44.0 % 12:43 PM [facility] [place] Platelets 196 150 - 450 04/22/2018 [facility] K/uL 12:43 PM [place] [place] MCV 90.6 81.6 - 04/22/2018 [facility] 98.3 fL 12:43 PM [facility] [place] MCH 29.6 26.0 - 04/22/2018 [facility] 32.0 pg 12:43 PM [facility] [place] MCHC 32.6 32.0 - 04/22/2018 [facility] 36.0 g/dL 12:43 PM [facility] RDW 12.9 11.9 - 04/22/2018 [facility] 15.5 % 12:43 PM [place] [place] Lymphocytes % 14.7 (L) 18.0 - 04/22/2018 [facility] 45.0 % 12:43 PM [facility] [place] Mid-size Cells 10.4 (H) 3.3 - 10.1 04/22/2018 [facility] % 12:43 PM [facility] Granulocytes/Jean Claude 74.9 (H) 45.8 - 04/22/2018 [facility] trophils 73.7 % 12:43 PM [place] [place] Lymphocytes 1.1 0.9 - 2.9 04/22/2018 [facility] Absolute K/uL 12:43 PM [facility] [place] MIDS Absolute 0.8 0.2 - 0.8 04/22/2018 [facility] K/uL 12:43 PM [place] Granulocytes/Jean Claude 5.4 2.1 - 8.7 04/22/2018 [facility] trophils K/uL 12:43 PM [facility] [place] Absolute Specimen Anatomical Collection Method Collection Time Receive d Time (Source) Location / / Volume Laterality Blood (Blood, 04/22/2018 10:33 04/22/2018 Venous) AM [facility]Y [facility]ANNER 12:38 PM PARTY PLANNER Adriane Patel APRN, CARPENTER CRADLE [employer] DOLLY LAB BLOOD ORDERABLES Performing Organization Address City/State/ZIP Code Phon e Number [facility] [address] [place] [phone] (ABNORMAL) Basic metabolic panel (04/22/2018 10:33 AM PARTY PLANNER) P athologist Signature Sodium 141 135 - 145 04/22/2018 [facility] [place] mmol/L 12:40 PM [facility] [place] Potassium 3.5 3.5 - 5.1 04/22/2018 [facility] mmol/L 12:40 PM [facility] [place] Comment: . Chloride 108 (H) 98 - 107 mmol/L 04/22/2018 12:40 PM PARTY PLANNER [facility] [place] Comment: . CO2 28 22 - 29 mmol/L 04/22/2018 12:40 PM PARTY PLANNER [facility] [place] Comment: . Creatinine 1.1 0.4 - 1.2 mg/dL 04/22/2018 12:40 PM PARTY PLANNER [facility] [place] Comment: . BUN 20 5 - 25 mg/dL 04/22/2018 12:40 PM PARTY PLANNER [facility] [place] Comment: . Glucose 204 (H) 70 - 100 mg/dL 04/22/2018 12:40 PM [facility] [place] PARTY PLANNER Calcium, Total,S 9.4 8.4 - 10.2 mg/dL 04/22/2018 12:40 PM [facility] [place] PARTY PLANNER Comment: . Fasting? No 04/22/2018 12:38 PM PARTY PLANNER [facility] [place] Comment: 1+ lipemic Specimen Anatomical Collection Method Collection Time Receive d Time (Source) Location / / Volume Laterality Blood (Blood, 04/22/2018 10:33 04/22/2018 Venous) AM PARTY PLANNER 12:38 PM PARTY PLANNER Adriane Patel APRN, CARPENTER CRADLE [employer] DOLLY LAB BLOOD ORDERABLES Performing Organization Address City/State/ZIP Code Phon e Number [facility] [address] [place] [id number] Troponin I (04/22/2018 10:33 AM PARTY PLANNER) P athologist Signature Troponin I <0.012 0.012 - 04/22/2018 [facility] 0.034 ng/mL 7:24 PM [facility] Comment: Note Reference Value Range [...] (Blood, 04/22/2018 10:33 04/22/2018 6:52 Venous) AM PARTY PLANNER PM PARTY PLANNER Adriane Patel APRN, CARPENTER CRADLE [employer] DOLLY LAB BLOOD ORDERABLES Performing Organization Address City/State/ZIP Code Phon e Number [facility] [address] [place] [phone] documented in this encounter Visit Diagnoses Diagnosis Type 2 diabetes mellitus with other spec ified complication, without long-term current use of insulin (HCC) Dyspnea on exertion Other dyspnea and respiratory abnormalit y Subclinical hypothyroidism Other specified acquired hypothyroidism documented in this encounter Care Teams Top Carrier Relationship Specialty Start Date End Date Adriane Patel, WEB OPERATIONS LEAD, CARPENTER CR[employer]LE [employer] DOLLY PCP - General 09/22/17 07/06/19 [address] [facility] [place] [address] documented as of this encounter
--- OUTSIDE RECORDS SUMMARY | 2021-12-10 15:23 | XMS_ITS | Encounter Summary ---
:1945 Author Organization [facility] Address [address] [place] [address] Care Team Providers Name Role Phone Adriane Patel INBOUND CUSTOMER SERVICE AGENT, MEMBERSHIP SALES MANAGER Primary Care Provider [phone] Reason for Visit Reason Onset Date Comments LAB RESULT QUESTIONS 05/03/2018 Encounter Details Date Type Department Care Team Description 05/03/2018 Telephone [place] Ardiane Patel, LAB RESULT QUESTIONS [address] INBOUND CUSTOMER SERVICE AGENT, MEMBERSHIP SALES MANAGER [place], [place] [address] [address] [facility] [address] [phone] [place], [place] [address] Social History Tobacco Use [...] on filedocumented in this encounter Care Teams Revenue Field Auditor Relationship Specialty Start Date End Date Adriane Patel, INBOUND CUSTOMER SERVICE AGENT, MEMBERSHIP SALES MANAGER PCP - General 09/22/17 07/06/19 100 [place] [address] documented as of this encounter
--- OUTSIDE RECORDS SUMMARY | 2021-12-10 15:23 | XMS_ITS | Encounter Summary ---
:1945 Author Organization [facility] Address [address] [place] [address] Care Team Providers Name Role Phone PatelAdriane henley Ronak SURGICAL SCRUB TECH, BUGGY OPERATOR Primary Care Provider [phone] Reason for Visit Reason Comments Medication Visit Encounter Details Date Type Department Care Team Description 02/19/2018 Office Visit Adriane Fernández Type 2 diabetes [address] M, LEONARD RESENDEZ mellitus with other [place], [place] [address] specified [address] [place] [address] complication, without [phone] long-ter m current use of insulin (HCC [...] Comments Blood Pressure 120/72 02/19/2018 4:04 PM SAS BI DEVELOPER Pulse 90 02/19/2018 4:04 PM SAS BI DEVELOPER Temperature 36.6 ??C (97.8 ??F) 02/19/2018 4:04 PM SAS BI DEVELOPER Respiratory Rate 16 02/19/2018 4:04 PM SAS BI DEVELOPER Oxygen Saturation 99% 02/19/2018 4:04 PM SAS BI DEVELOPER Inhaled Oxygen Concentration - - Weight 81.1 kg (178 lb 12.7 oz) 02/19/2018 4:04 PM SAS BI DEVELOPER Height 161 cm (5' 3.39) 02/19/2018 4:04 PM SAS BI DEVELOPER Body Mass Index 31.29 02/19/2018 4:04 PM SAS BI DEVELOPER documented in this encounter Patient Instructions Patient InstructionsChgarfield Patel APRN, CNP - 02/19/2018 4:00 PM SAS BI DEVELOPER Glipizide 5 mg twice daily x one month. Continue Januvia 50 mg daily until pills runt out x one month. Closely monitor blood sugars and if they start elevate. BI DEVELOPER documented in this encounter Progress Notes Adriane [...] plan of care. Adriane Patel APRN, LEONARD BI DEVELOPER documented in this encounter Plan of Treatment Not on filedocumented as of this encounter Visit Diagnoses Diagnosis Type 2 diabetes mellitus with other spec ified complication, without long-term current use of insulin (HCC) - Primary documented in this encounter Care Teams Software Configuration Specialist Relationship Specialty Start Date End Date Adriane Patel APRN, BUGGY OPERATOR PCP - General 09/22/17 07/06/19 100 [facility] [place] [address] documented as of this encounter
--- OUTSIDE RECORDS SUMMARY | 2021-12-10 15:23 | XMS_ITS | Encounter Summary ---
:1945 Author Organization [facility] Address [address] [place] [address] Care Team Providers Name Role Phone Adriane Patel AERIAL PLANTING AND CULTIVATION MANAGER, SUPERVISOR METER REPAIR SHOP Primary Care Provider [phone] Reason for Visit Reason Onset Date Comments Coding 04/08/2018 Encounter Details Date Type Department Care Team Description 04/08/2018 Telephone [place] Adriane Patel, Coding [address] AERIAL PLANTING AND CULTIVATION MANAGER, SUPERVISOR METER REPAIR SHOP [place], [place] [address] [address] [facility] [address] [phone] [place], [place] [address] Social History Tobacco Use [...] - 04/09/2018 1:00 PM CST Patient informed Y PICKER Telephone Encounter - Margareth Sanchez RN - 04/09/2018 9:38 AM CST I spoke to billing department who said the patient called 2 weeks ago and this was already changed and is back with insurance. According to billing this has been taken care of. Y PICKER Telephone Encounter - Adriane Patel APRN, LEONARD - 04/08/2018 2:52 PM BERRY PICKER This medication review, unsure where billing go preventative? Please check with billing/coding. Thanks, Suresh Y PICKER Telephone Encounter - Margareth Sanchez RN - 04/08/2018 2:46 PM CST Please review and let me know what you'd like me to talk about with coding. Y PICKER Telephone Encounter - Phoebe Donohue - 04/08/2018 2:28 PM CST Patient received a bill from February 19 visit. She was here for a med review. Apparently it was billed as a preventative and not office visit. She is wondering if this can be changed. Please advise. Y PICKER documented in this encounter Plan of Treatment Not on filedocumented as of this encounter Visit Diagnoses Not on filedocumented in this encounter Care Teams Sewing Machine Repairer Relationship Specialty Start Date End Date Adriane Patel APRN, SUPERVISOR METER REPAIR SHOP PCP - General 09/22/17 07/06/19 100 [facility] [place] [address] documented as of this encounter
--- OUTSIDE RECORDS SUMMARY | 2021-12-10 15:23 | XMS_ITS | Encounter Summary ---
:1945 Author Organization [facility] Address [address] [place] [address] Care Team Providers Name Role Phone Adriane Patel TUBE BENDING MACHINE OPERATOR, CONFIGURATION ENGINEER Primary Care Provider Encounter Details Date Type Department Care Team Description 04/03/2018 Orders Only [place] Adriane Patel, Urinary tract [address] TUBE BENDING MACHINE OPERATOR, CONFIGURATION ENGINEER infection without [place], [place] [address] hematuria, site [address] [place] [address] unspecified (Primary [phone] Dx) Social History Tobacco Use Types Packs/Day [...] Primary documented in this encounter Care Teams Woods Superintendent Relationship Specialty Start Date End Date Adriane Patel APRN, CONFIGURATION ENGINEER PCP - General 09/22/17 07/06/19 100 [facility] [place] [address] documented as of this encounter
--- OUTSIDE RECORDS SUMMARY | 2021-12-10 15:23 | XMS_ITS | Encounter Summary ---
:1945 Author Organization [facility] Address [address] [place] [address] Care Team Providers Name Role Phone Adriane Patel STEM CUTTER, CASE REVIEWER Primary Care Provider [phone] Reason for Visit Reason Onset Date Comments colonoscopy questions 03/03/2018 Encounter Details Date Type Department Care Team Description 03/03/2018 Telephone [place] Adriane Patel, colonoscopy questions [address] STEM CUTTER, CASE REVIEWER [place], [place] [address] [address] [facility] [address] [phone] [place], [place] [address] Social History Tobacco Use [...] CST Called and canceled Marcial's colonoscopy at [place]. Called patient and informed her to come in to sign Cologuard form. ICAL EDUCATION SPECIALIST Telephone Encounter - Lana Knight LPN - 03/04/2018 9:30 AM CST Left a message for Marcial to call back. ICAL EDUCATION SPECIALIST Telephone Encounter - Adriane Patel APRN, LEONARD - 03/04/2018 8:52 AM CLINICAL EDUCATION SPECIALIST The patient has no family history of colon cancer, please confirm. If there is no family history of colon cancer, Catrina guard testing is appropriate and I will be happy to make those arrangements, shedoes need to complete the form. Thanks Suresh ICAL EDUCATION SPECIALIST Telephone Encounter - Lana Knight LPN - [...] benefits out way the risks. Please advise ICAL EDUCATION SPECIALIST Telephone Encounter - Brenda House - 03/03/2018 4:41 PM CST Pt has questions about colonoscopy she is having next week ICAL EDUCATION SPECIALIST documented in this encounter Plan of Treatment Not on filedocumented as of this encounter Visit Diagnoses Not on filedocumented in this encounter Care Teams Golf Instructor Relationship Specialty Start Date End Date Adriane Patel APRN, CASE REVIEWER PCP - General 09/22/17 07/06/19 [address] [place], [place] [address] documented as of this encounter
--- OUTSIDE RECORDS SUMMARY | 2021-12-10 15:23 | XMS_ITS | Encounter Summary ---
:1945 Author Organization [facility] Address [address] [place] [address] Care Team Providers Name Role Phone Adriane Patel Ronak BUSINESS INTEGRATION ANALYST, DIRECTOR STYLE Primary Care Provider [phone] Encounter Details Date Type Department Care Team Description 02/15/2018 Lab [place] Type 2 diabetes mellitus wit h [address] complication, without [place], [place] [address] long-term current use of [phone] insulin (HCC) Social History Tobacco Use Types [...] Type 2 diabetes Resu lts for this MUSIC DIRECTOR mellitus with procedure are in the complication, without result s section. long-term current use of insulin (HCC) documented in this encounter Results (ABNORMAL) Hemoglobin A1c (02/15/2018 1:50 PM MUSIC DIRECTOR) Analysis Performed At Patho logist Time Signature Hemoglobin A1C 8.2 (H) 4.0 - 5.6 02/15/2018 [facility] % A1C 6:32 PM [facility]IC DIRECTOR [facility] Comment: Reference Range 4.0-5.6% [...] 02/15/2018 1:50 PM 02/16/20 18 6:14 Venous) MUSIC DIRECTOR PM MUSIC DIRECTOR Adriane Patel APRN, DIRECTOR STYLE LAB BLOOD ORDERABLES Performing Organization Address City/State/ZIP Code Phon e Number [facility] [address] [place] [address] documented in this encounter Visit Diagnoses Diagnosis Type 2 diabetes mellitus with complicati on, without long-term current use of insulin (HCC) documented in this encounter Care Teams [place]rop [place] Hand Relationship Specialty Start Date End Date Adriane Patel APRN, DIRECTOR STYLE PCP - General 09/22/17 07/06/19 100 [place] [address] documented as of this encounter
--- OUTSIDE RECORDS SUMMARY | 2021-12-10 15:23 | XMS_ITS | Encounter Summary ---
:1945 Author Organization [facility] Address [address] [place] [address] Care Team Providers Name Role Phone Patel, Adriane Simons CERTIFIED FLEX ENDOSCOPE REPROCESSOR, ORDER CLERK Primary Care Provider [phone] Reason for Visit Reason Comments Medication Visit Shortness of Breath Encounter Details Date Type Department Care Team Description 04/22/2018 Office Visit [place] Adriane Patel Type 2 diabetes mellitus wit hout complication, without long- term current use of insulin (HCC) (Primary Dx); [address] M, MAL, LEONARD Dyspnea on exertion; [place], [place] [address] Hyperlipidemia, unspecified hyperlipidem ia type [address] [place], [place] [phone] [id number] Social History Tobacco Use Types Packs/Day Years [...] Comments Blood Pressure 122/80 04/22/2018 9:34 AM OTOLARYNGOLOGY TEACHER Pulse 81 04/22/2018 9:34 AM OTOLARYNGOLOGY TEACHER Temperature 36.3 ??C (97.4 ??F) 04/22/2018 9:34 AM OTOLARYNGOLOGY TEACHER Respiratory Rate 16 04/22/2018 9:34 AM OTOLARYNGOLOGY TEACHER Oxygen Saturation 99% 04/22/2018 9:34 AM OTOLARYNGOLOGY TEACHER Inhaled Oxygen Concentration - - Weight 81.9 kg (180 lb 8.9 oz) 04/22/2018 9:34 AM OTOLARYNGOLOGY TEACHER Height 161 cm (5' 3.39) 04/22/2018 9:34 AM OTOLARYNGOLOGY TEACHER Body Mass Index 31.6 04/22/2018 9:34 AM OTOLARYNGOLOGY TEACHER documented in this encounter Patient Instructions Patient InstructionsChgarfield Patel APRN, CNP - 04/22/2018 9:20 AM OTOLARYNGOLOGY TEACHER Crestor 2.5 mg daily Call schedule cardiology appointment Januvia 50 mg daily in addition to Glipizide 10 mg twice daily Baby aspirin ARYNGOLOGY TEACHER documented in this encounter Progress Notes Adriane [...] bilaterally, when she was walking to her [employer] shop, [place],outside in [...] previously prescried. 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 XR CHEST 2 VIEWS Routine 04/22/2018 10:53 AM Dyspnea on exerti on Results for this OTOLARYNGOLOGY TEACHER procedure are i n the results section. documented in this encounter Results ECG 12 lead (04/22/2018 11:00 AM OTOLARYNGOLOGY TEACHER) Specimen (Source) Anatomical Collection Method Collection Time Re ceived Time Location / / Volume Laterality 04/22/2018 11:00 AM OTOLARYNGOLOGY TEACHER Narrative 04/22/2018 12:00 AM OTOLARYNGOLOGY TEACHER This result has an attachment that is no t available. EKG performed in clinic. Patient tolerat ed well. Paper copy sent for interpretation. Adriane Patel APRN, LEONARD ECG ORDERABLES X-ray Chest 2 Views (04/22/2018 10:53 AM OTOLARYNGOLOGY TEACHER) Anatomical Region Laterality Modality Body Radiographic Imaging Specimen (Source) Anatomical Collection Method Collection Time Re ceived Time Location / / Volume Laterality 04/22/2018 10:53 AM OTOLARYNGOLOGY TEACHER Impressions 04/22/2018 11:04 AM OTOLARYNGOLOGY TEACHER IMPRESSION: No acute abnormality. Narrative 04/22/2018 11:04 AM OTOLARYNGOLOGY TEACHER INDICATION: dyspnea with extertion COMPARISON: Chest x-ray [...] shoulder. IMPRESSION: No acute abnormality. Adriane Patel CERTIFIED FLEX ENDOSCOPE REPROCESSOR, ORDER CLERK IMG XR PROCEDURES Troponin I (04/22/2018 10:33 AM OTOLARYNGOLOGY TEACHER) athologist Signature Troponin I <0.012 0.012 - 04/22/2018 [facility] 0.034 ng/mL 7:24 PM OTOLARYNGOLOGY TEACHER [facility] Comment: Note Reference Value Range [...] (Blood, 04/22/2018 10:33 04/22/2018 6:52 Venous) AM OTOLARYNGOLOGY TEACHER PM OTOLARYNGOLOGY TEACHER Adriane Patel APRN, ORDER CLERK LAB BLOOD ORDERABLES Performing Organization Address City/State/ZIP Code Phon e Number [facility] [address] [place] [address] (ABNORMAL) Basic metabolic panel (04/22/2018 10:33 AM OTOLARYNGOLOGY TEACHER) P athologist Signature Sodium 141 135 - 145 04/22/2018 [facility] [place] mmol/L 12:40 PM [facility] [place] Potassium 3.5 3.5 - 5.1 04/22/2018 [facility] mmol/L 12:40 PM [facility] [place] Comment: . Chloride 108 (H) 98 - 107 mmol/L 04/22/2018 12:40 PM [facility] [place] Comment: . CO2 28 22 - 29 mmol/L 04/22/2018 12:40 PM [facility] [place] Comment: . Creatinine 1.1 0.4 - 1.2 mg/dL 04/22/2018 12:40 PM OTOLARYNGOLOGY TEACHER [facility] [place] Comment: . BUN 20 5 - 25 mg/dL 04/22/2018 12:40 PM [facility] [place] Comment: . Glucose 204 (H) 70 - 100 mg/dL 04/22/2018 12:40 PM [facility] [place] OTOLARYNGOLOGY TEACHER Calcium, Total,S 9.4 8.4 - 10.2 mg/dL 04/22/2018 12:40 PM [facility] [place] OTOLARYNGOLOGY TEACHER Comment: . Fasting? No 04/22/2018 12:38 PM OTOLARYNGOLOGY TEACHER [facility] [place] Comment: 1+ lipemic Specimen Anatomical Collection Method Collection Time Receive d Time (Source) Location / / Volume Laterality Blood (Blood, 04/22/2018 10:33 04/22/2018 Venous) AM OTOLARYNGOLOGY TEACHER 12:38 PM OTOLARYNGOLOGY TEACHER Adriane Patel APRN, ORDER CLERK LAB BLOOD ORDERABLES Performing Organization Address City/State/ZIP Code Phon e Number [facility] [place] [address] [place] [address] (ABNORMAL) CBC Branch Off w/Diff (04/22/2018 10:33 AM OTOLARYNGOLOGY TEACHER) [facility] Method Time Signature WBC 7.3 3.5 - 10.5 04/22/2018 [facility] K/uL 12:43 PM OTOLARYNGOLOGY TEACHER [place] RBC 3.72 (L) 3.90 - 04/22/2018 [facility] 5.00 M/uL 12:43 PM OTOLARYNGOLOGY TEACHER [place] Hemoglobin 11.0 (L) 12.0 - 04/22/2018 [facility] 15.5 g/dL 12:43 PM OTOLARYNGOLOGY TEACHER [place] Hematocrit 33.7 (L) 35.0 - 04/22/2018 [facility] [place] 44.0 % 12:43 PM OTOLARYNGOLOGY TEACHER [place] Platelets 196 150 - 450 04/22/2018 [facility] K/uL 12:43 PM OTOLARYNGOLOGY TEACHER [place] MCV 90.6 81.6 - 04/22/2018 [facility] [place] 98.3 fL 12:43 PM OTOLARYNGOLOGY TEACHER [place] MCH 29.6 26.0 - 04/22/2018 [facility] [place] 32.0 pg 12:43 PM OTOLARYNGOLOGY TEACHER [place] MCHC 32.6 32.0 - 04/22/2018 [facility] [place] 36.0 g/dL 12:43 PM OTOLARYNGOLOGY TEACHER [place] RDW 12.9 11.9 - 04/22/2018 [facility] [place] 15.5 % 12:43 PM OTOLARYNGOLOGY TEACHER [place] Lymphocytes % 14.7 (L) 18.0 - 04/22/2018 [facility] 45.0 % 12:43 PM OTOLARYNGOLOGY TEACHER [place] Mid-size Cells 10.4 (H) 3.3 - 10.1 04/22/2018 [facility] % 12:43 PM OTOLARYNGOLOGY TEACHER [place] Granulocytes/Jean Claude 74.9 (H) 45.8 - 04/22/2018 [facility] [place] trophils 73.7 % 12:43 PM OTOLARYNGOLOGY TEACHER [place] Lymphocytes 1.1 0.9 - 2.9 04/22/2018 [facility] Absolute K/uL 12:43 PM OTOLARYNGOLOGY TEACHER [place] MIDS Absolute 0.8 0.2 - 0.8 04/22/2018 [facility] K/uL 12:43 PM OTOLARYNGOLOGY TEACHER [place] Granulocytes/Jean Claude 5.4 2.1 - 8.7 04/22/2018 [facility] trophils K/uL 12:43 PM OTOLARYNGOLOGY TEACHER [place] Absolute Specimen Anatomical Collection Method Collection Time Receive d Time (Source) Location / / Volume Laterality Blood (Blood, 04/22/2018 10:33 04/22/2018 Venous) AM OTOLARYNGOLOGY TEACHER 12:38 PM OTOLARYNGOLOGY TEACHER Adriane Patel APRN, ORDER CLERK LAB BLOOD ORDERABLES Performing Organization Address City/State/ZIP Code Phon e Number [facility] [place] [address] [place] [address] documented in this encounter Visit Diagnoses Diagnosis Type 2 diabetes mellitus without complic ation, without long-term current use of insulin (HCC) - Primary Dyspnea on exertion Other dyspnea and respiratory abnormalit y Hyperlipidemia, unspecified hyperlipidem ia type documented in this encounter Care Teams Top And Trim Worker Relationship Specialty Start Date End Date Adriane Patel APRN, ORDER CLERK PCP - General 09/22/17 07/06/19 [address] [facility] [place] [address] documented as of this encounter
--- OUTSIDE RECORDS SUMMARY | 2021-12-10 15:23 | XMS_ITS | Encounter Summary ---
:1945 Author Organization [facility] Address [address] [place] [address] Care Team Providers Name Role Phone Adriane Patel Ronak MANAGER ECONOMIC, DISTRIBUTION SYSTEMS SERVICEPERSON Primary Care Provider [phone] Encounter Details Date Type Department Care Team Description 04/01/2018 Lab [place] Weak urinary stream [address] [place], [place] [address] Social History Tobacco Use [...] tream Results for this EXAM (REFLEXED) AM WEED SCIENCE RESEARCH TECHNICIAN procedure ar e in the results section. URINALYSIS WITH REFLEX Routine 04/01/2018 11:39 Weak urinary s tream Results for this MICROSCOPIC AM WEED SCIENCE RESEARCH TECHNICIAN procedure are i n the results section. URINE CULTURE Routine 04/01/2018 11:39 Weak urinary stream Res ults for this AM WEED SCIENCE RESEARCH TECHNICIAN procedure are i n the results section. GLOMERULAR FILTRATION Routine 04/01/2018 11:32 Re sults for this RATE AM WEED SCIENCE RESEARCH TECHNICIAN procedure are i n the results section. CBC BRANCH OFFICE Routine 04/01/2018 11:32 Result s for this W/DIFF AM WEED SCIENCE RESEARCH TECHNICIAN procedure are i n the results section. CREATININE, SERUM Routine 04/01/2018 11:32 Result s for this AM WEED SCIENCE RESEARCH TECHNICIAN procedure are i n the results section. SEDIMENTATION RATE, Routine 04/01/2018 11:32 Resu lts for this AUTOMATED AM WEED SCIENCE RESEARCH TECHNICIAN procedure are i n the results section. C-REACTIVE PROTEIN Routine 04/01/2018 11:32 Resul ts for this AM WEED SCIENCE RESEARCH TECHNICIAN procedure are i n the results section. ALT Routine 04/01/2018 11:32 Results for this AM WEED SCIENCE RESEARCH TECHNICIAN procedure are i n the results section. AST Routine 04/01/2018 11:32 Results for this AM WEED SCIENCE RESEARCH TECHNICIAN procedure are i n the results section. ALBUMIN Routine 04/01/2018 11:32 Results for this AM WEED SCIENCE RESEARCH TECHNICIAN procedure are i n the results section. documented in this encounter Results (ABNORMAL) Urine culture (clean catch) (04/01/2018 11:39 AM WEED SCIENCE RESEARCH TECHNICIAN) [facility] Method Time Signature Urine Culture Escherichia coli 04/03/2018 [place] >100,000 cfu/ml 8:14 AM WEED SCIENCE RESEARCH TECHNICIAN [facility] [place] [facility] Specimen Anatomical Collection Method Collection Time Receive d Time (Source) Location / / Volume Laterality Urine, Clean 04/01/2018 11:39 04/02/2018 Catch AM WEED SCIENCE RESEARCH TECHNICIAN 12:50 PM WEED SCIENCE RESEARCH TECHNICIAN Narrative [facility] - 03/19 8:14 AM WEED SCIENCE RESEARCH TECHNICIAN Patient does not have an Amoxicillin or [...] Organization Address City/State/ZIP Code Phon e Number [facility] [address] [place] [address] (ABNORMAL) Urinalysis-Microscopic Exam (04/01/2018 11:39 AM WEED SCIENCE RESEARCH TECHNICIAN) [facility] MicroPhage Method Time Signature Casts, urine NONE SEEN 0-2 Hyaline 04/01/2018 [facility] [place] /lpf 12:56 PM WEED SCIENCE RESEARCH TECHNICIAN [place] Significant NONE SEEN None Seen 04/01/2018 [facility] [place] casts, urine /lpf 12:56 PM WEED SCIENCE RESEARCH TECHNICIAN [place] RBC, Urine 0-3 0 - 3 /hpf 04/01/2018 [facility] 12:56 PM WEED SCIENCE RESEARCH TECHNICIAN [place] WBC, Urine 11-20 (A) /hpf 04/01/2018 [facility] [place] 12:56 PM WEED SCIENCE RESEARCH TECHNICIAN [place] Comment: Male Ref Range ? 0-3/hpf Female Ref Range ?? 0-10/hpf Squamous Epithelial, 1+ (A) Few /lpf 04/01/2018 12:56 PM [facility] [place] [place] Urine WEED SCIENCE RESEARCH TECHNICIAN Trans Epithelial, NONE SEEN 0 - 3 /hpf 04/01/2018 12:56 PM O [place] Urine WEED SCIENCE RESEARCH TECHNICIAN Renal Tubular Cells, NONE SEEN 0 - 1 /hpf 04/01/2018 12:56 P M [facility] [place] [place] Urine WEED SCIENCE RESEARCH TECHNICIAN Bacteria, Urine 1+ (A) None Seen /hpf 04/01/2018 12:56 PM [facility] [place] WEED SCIENCE RESEARCH TECHNICIAN Specimen Anatomical Collection Method Collection Time Receive d Time (Source) Location / / Volume Laterality 04/01/2018 11:39 04/01/2018 AM WEED SCIENCE RESEARCH TECHNICIAN 11:40 AM WEED SCIENCE RESEARCH TECHNICIAN Adriane Patel APRN, CNP LAB URINE ORDERABLES Performing Organization Address City/[facility] Phon e Number [facility] [place] [address] [place] [address] (ABNORMAL) Urinalysis with reflex microscopic (clean catch) (04/01/2018 11:39 AM WEED SCIENCE RESEARCH TECHNICIAN) [facility] Method Time Signature Type COLLECTION HAT 04/01/2018 [facility] 11:52 AM [place] WEED SCIENCE RESEARCH TECHNICIAN Color, Urine STRAW YELLOW 04/01/2018 [facility] 11:52 AM [place] WEED SCIENCE RESEARCH TECHNICIAN Clarity, HAZY (A) CLEAR 04/01/2018 [facility] Urine 11:52 AM [place] WEED SCIENCE RESEARCH TECHNICIAN Glucose, 100 (A) NEGATIVE 04/01/2018 [facility] Urine mg/dL 11:52 AM [place] WEED SCIENCE RESEARCH TECHNICIAN Bilirubin, NEGATIVE NEGATIVE 04/01/2018 [facility] Urine 11:52 AM [place] WEED SCIENCE RESEARCH TECHNICIAN Ketones, NEGATIVE NEGATIVE 04/01/2018 [facility] Urine mg/dL 11:52 AM [place] WEED SCIENCE RESEARCH TECHNICIAN Specific 1.020 1.000 04/01/2018 [facility] [place], ->=1.030 11:52 AM [place] Urine WEED SCIENCE RESEARCH TECHNICIAN Blood, Urine NEGATIVE NEGATIVE 04/01/2018 [facility] 11:52 AM [place] WEED SCIENCE RESEARCH TECHNICIAN pH, Urine 5.0 5.0 - 7.0 04/01/2018 [facility] 11:52 AM [place] WEED SCIENCE RESEARCH TECHNICIAN Protein, NEGATIVE NEGATIVE-TRA 04/01/2018 [facility] Urine CE mg/dL 11:52 AM [place] WEED SCIENCE RESEARCH TECHNICIAN Urobilinogen, 0.2 0.2 - 1.0 04/01/2018 [facility] Urine E.U./dL 11:52 AM [place] WEED SCIENCE RESEARCH TECHNICIAN Nitrite, NEGATIVE NEGATIVE 04/01/2018 [facility] Urine 11:52 AM [place] WEED SCIENCE RESEARCH TECHNICIAN Leukocytes, MODERATE (A) NEGATIVE 04/01/2018 [facility] Urine 11:52 AM [place] WEED SCIENCE RESEARCH TECHNICIAN Specimen Anatomical Collection Method Collection Time Receive d Time (Source) Location / / Volume Laterality Urine (Urine, 04/01/2018 11:39 04/01/2018 Clean Catch) AM WEED SCIENCE RESEARCH TECHNICIAN 11:40 AM WEED SCIENCE RESEARCH TECHNICIAN Adriane Patel APRN, DISTRIBUTION SYSTEMS SERVICEPERSON LAB URINE ORDERABLES Performing Organization Address City/State/ZIP Code Phon e Number [facility] [place] [address] [place] [address] (ABNORMAL) Glomerular filtration rate (GFR) (04/01/2018 11:32 AM WEED SCIENCE RESEARCH TECHNICIAN) P athologist Signature GFR 44 (A) 04/02/2018 [facility] 2:25 PM WEED SCIENCE RESEARCH TECHNICIAN [facility] 53 (A) 04/02/2018 [facility] Nigerian GFR 2:25 PM WEED SCIENCE RESEARCH TECHNICIAN [facility] Comment: GFR calculated from serum creatinine v alue Chronic Kidney Disease less than 60 mL/m in/1.73 m2 Kidney Failure less than 15 mL/min/1.73 m2 Note: effective 07/01/06 IDMS-Traceable MDRD Study Equation used. Specimen Anatomical Collection Method Collection Time Receive d Time (Source) Location / / Volume Laterality 04/01/2018 11:32 04/01/2018 AM WEED SCIENCE RESEARCH TECHNICIAN 11:32 AM WEED SCIENCE RESEARCH TECHNICIAN Narrative [facility] - 03/19 2:25 PM WEED SCIENCE RESEARCH TECHNICIAN Called to CALL CANCELLED - RESULTS FAXED , , 14:29 04/01/[address] Carl Prado [facility] Rheumatology Fax Phone Outside Referring Lab Provider LAB BLOOD ORDERABLES Performing Organization Address City/State/ZIP Code Phon e Number [facility] [address] [place] [address] (ABNORMAL) CBC Branch Off w/Diff (04/01/2018 11:32 AM WEED SCIENCE RESEARCH TECHNICIAN) [facility] Method Time Signature WBC 6.6 3.5 - 10.5 04/01/2018 [facility] K/uL 11:51 AM WEED SCIENCE RESEARCH TECHNICIAN [place] RBC 3.82 (L) 3.90 - 04/01/2018 [facility] 5.00 M/uL 11:51 AM WEED SCIENCE RESEARCH TECHNICIAN [place] Hemoglobin 11.3 (L) 12.0 - 04/01/2018 [facility] 15.5 g/dL 11:51 AM WEED SCIENCE RESEARCH TECHNICIAN [place] Hematocrit 34.5 (L) 35.0 - 04/01/2018 [facility] 44.0 % 11:51 AM WEED SCIENCE RESEARCH TECHNICIAN [place] Platelets 208 150 - 450 04/01/2018 [facility] K/uL 11:51 AM WEED SCIENCE RESEARCH TECHNICIAN [place] MCV 90.3 81.6 - 04/01/2018 [facility] 98.3 fL 11:51 AM WEED SCIENCE RESEARCH TECHNICIAN [place] MCH 29.6 26.0 - 04/01/2018 [facility] 32.0 pg 11:51 AM WEED SCIENCE RESEARCH TECHNICIAN [place] MCHC 32.8 32.0 - 04/01/2018 [facility] 36.0 g/dL 11:51 AM WEED SCIENCE RESEARCH TECHNICIAN [place] RDW 13.0 11.9 - 04/01/2018 [facility] 15.5 % 11:51 AM WEED SCIENCE RESEARCH TECHNICIAN [place] Lymphocytes % 17.3 (L) 18.0 - 04/01/2018 [facility] 45.0 % 11:51 AM WEED SCIENCE RESEARCH TECHNICIAN [place] Mid-size Cells 12.7 (H) 3.3 - 10.1 04/01/2018 [facility] % 11:51 AM WEED SCIENCE RESEARCH TECHNICIAN [place] Granulocytes/Jean Claude 70.0 45.8 - 04/01/2018 [facility] trophils 73.7 % 11:51 AM WEED SCIENCE RESEARCH TECHNICIAN [place] Lymphocytes 1.1 0.9 - 2.9 04/01/2018 [facility] Absolute K/uL 11:51 AM WEED SCIENCE RESEARCH TECHNICIAN [place] MIDS Absolute 0.8 0.2 - 0.8 04/01/2018 [facility] K/uL 11:51 AM WEED SCIENCE RESEARCH TECHNICIAN [place] Granulocytes/Jean Claude 4.7 2.1 - 8.7 04/01/2018 [facility] trophils K/uL 11:51 AM WEED SCIENCE RESEARCH TECHNICIAN [place] Absolute Specimen Anatomical Collection Method Collection Time Receive d Time (Source) Location / / Volume Laterality 04/01/2018 11:32 04/01/2018 AM WEED SCIENCE RESEARCH TECHNICIAN 11:32 AM WEED SCIENCE RESEARCH TECHNICIAN Narrative [facility] [place] - 04/01/2018 11:[address] Carl [place] [facility] Fax Phone Outside Referring Lab Provider LAB BLOOD ORDERABLES Performing Organization Address City/[facility]/ZIP Code Phon e Number [facility] [place] [address] [place] [address] AST (04/01/2018 11:32 AM WEED SCIENCE RESEARCH TECHNICIAN) P athologist Signature AST 24 8 - 43 U/L 04/02/2018 [facility] 2:25 PM WEED SCIENCE RESEARCH TECHNICIAN [facility] Specimen Anatomical Collection Method Collection Time Receive d Time (Source) Location / / Volume Laterality 04/01/2018 11:32 04/02/2018 AM WEED SCIENCE RESEARCH TECHNICIAN 12:27 PM WEED SCIENCE RESEARCH TECHNICIAN Narrative [facility] - 03/19 2:25 PM WEED SCIENCE RESEARCH TECHNICIAN Called to CALL CANCELLED - RESULTS FAXED , , 14:29 04/01/[address] Carl [facility] Fax Phone Outside Referring Lab Provider LAB BLOOD ORDERABLES Performing Organization Address City/State/ZIP Code Phon e Number [facility] [address] [place] [address] (ABNORMAL) C-reactive protein (04/01/2018 11:32 AM WEED SCIENCE RESEARCH TECHNICIAN) athologist [facility] CRP 21.0 (H) 0.0 - 9.9 04/02/2018 [facility] mg/L 2:25 PM WEED SCIENCE RESEARCH TECHNICIAN [facility] Comment: . Specimen Anatomical Collection Method Collection Time Receive d Time (Source) Location / / Volume Laterality 04/01/2018 11:32 04/02/2018 AM WEED SCIENCE RESEARCH TECHNICIAN 12:28 PM WEED SCIENCE RESEARCH TECHNICIAN Narrative [facility] - 03/19 2:25 PM WEED SCIENCE RESEARCH TECHNICIAN Called to CALL CANCELLED - RESULTS FAXED , , 14:29 04/01/[address] Carl [facility] Fax Phone Outside Referring Lab Provider LAB BLOOD ORDERABLES Performing Organization Address City/[facility] e Number [facility] [address] [place] [phone] Creatinine, Serum (04/01/2018 11:32 AM WEED SCIENCE RESEARCH TECHNICIAN) athologist [facility] Creatinine 1.2 0.4 - 1.2 04/02/2018 [facility] mg/dL 2:25 PM WEED SCIENCE RESEARCH TECHNICIAN [facility] Specimen Anatomical Collection Method Collection Time Receive d Time (Source) Location / / Volume Laterality 04/01/2018 11:32 04/02/2018 AM WEED SCIENCE RESEARCH TECHNICIAN 12:27 PM WEED SCIENCE RESEARCH TECHNICIAN [facility] - 03/19 2:25 PM WEED SCIENCE RESEARCH TECHNICIAN Called to CALL CANCELLED - RESULTS FAXED , , 14:29 04/01/[address] Carl [facility] Fax Phone Outside Referring Lab Provider LAB BLOOD ORDERABLES Performing Organization Address City/[facility] e Number [facility] [address] [place] [address] ALT (04/01/2018 11:32 AM WEED SCIENCE RESEARCH TECHNICIAN) athologist [facility] ALT (SGPT) 28 0 - 34 U/L 04/02/2018 [facility] 2:25 PM WEED SCIENCE RESEARCH TECHNICIAN [facility] Comment: NOTE: Normal range change effective 01/17 Specimen Anatomical Collection Method Collection Time Receive d Time (Source) Location / / Volume Laterality 04/01/2018 11:32 04/02/2018 AM WEED SCIENCE RESEARCH TECHNICIAN 12:27 PM WEED SCIENCE RESEARCH TECHNICIAN [facility] - 03/19 2:25 PM WEED SCIENCE RESEARCH TECHNICIAN Called to CALL CANCELLED - RESULTS FAXED , , 14:29 04/01/[address] Carl [facility] Fax Phone Outside Referring Lab Provider LAB BLOOD ORDERABLES Performing Organization Address City/State/ZIP Code Phon e Number [facility] [address] [place] [address] Albumin (04/01/2018 11:32 AM WEED SCIENCE RESEARCH TECHNICIAN) athologist Signature Albumin, Serum 4.3 3.5 - 5.0 04/02/2018 [facility] g/dL 2:25 PM [facility] Specimen Anatomical Collection Method Collection Time Receive d Time (Source) Location / / Volume Laterality 04/01/2018 11:32 04/02/2018 AM WEED SCIENCE RESEARCH TECHNICIAN 12:27 PM WEED SCIENCE RESEARCH TECHNICIAN [facility] - 03/19 2:25 PM WEED SCIENCE RESEARCH TECHNICIAN Called to CALL CANCELLED - RESULTS FAXED , , 14:29 04/01/[address] Carl [facility] Fax Phone Outside Referring Lab Provider LAB BLOOD ORDERABLES Performing Organization Address City/[facility]/ZIP Code Phon e Number [facility] [address] [place] [address] (ABNORMAL) ESR-Sed rate (04/01/2018 11:32 AM WEED SCIENCE RESEARCH TECHNICIAN) P athologist Signature Sed Rate 67 (H) 0 - 29 04/02/2018 [facility] mm/hr 1:30 PM [facility] Specimen Anatomical Collection Method Collection Time Receive d Time (Source) Location / / Volume Laterality 04/01/2018 11:32 04/02/2018 AM WEED SCIENCE RESEARCH TECHNICIAN 12:25 PM WEED SCIENCE RESEARCH TECHNICIAN [facility] - 03/19 1:30 PM WEED SCIENCE RESEARCH TECHNICIAN Called to CALL CANCELLED - RESULTS FAXED , , 14:29 04/01/[address] Carl Prado [facility] Rheumatology Fax Phone Outside Referring Lab Provider LAB BLOOD ORDERABLES Performing Organization Address City/State/ZIP Code Phon e Number [facility] [address] [place] [address] documented in this encounter Visit Diagnoses Diagnosis Weak urinary stream Slowing of urinary stream documented in this encounter Care Teams Fertilizer Loader Relationship Specialty Start Date End Date Adriane Patel APRN, DISTRIBUTION SYSTEMS SERVICEPERSON PCP - General 09/22/17 07/06/[address] [place] [phone] documented as of this encounter
--- OUTSIDE RECORDS SUMMARY | 2021-12-10 15:23 | XMS_ITS | Encounter Summary ---
:1945 Author Organization [facility] Address [address] [place] [address] Care Team Providers Name Role Phone Adriane Patel Ronak CALCULATING MACHINE OPERATOR, PHLEBOTOMY INSTRUCTOR Primary Care Provider Encounter Details Date Type Department Care Team Description 04/27/2018 Lab [place] Dysuria [address] [place], [place] [address] Social History Tobacco Use [...] (ABNORMAL) Urinalysis-Microscopic Exam (04/27/2018 3:22 PM CDT) [facility] Method Time Signature Casts, urine NONE [...] (A) None Seen /hpf 04/27/2018 3:40 PM [facility] CDT Specimen Anatomical Collection Method Collection Time Receive d Time (Source) Location / / Volume Laterality 04/27/2018 3:22 PM 9 3:22 CDT PM CDT Sanam Darnell APRN, PHLEBOTOMY INSTRUCTOR LAB URINE ORDERABLES Performing Organization Address City/State/ZIP Code Phon e Number [facility] [address] [place] [address] (ABNORMAL) Urinalysis with reflex microscopic (clean catch) (04/27/2018 3:22 PM CDT) [facility] Method Time Signature Type CLEAN CATCH 04/27/2018 [facility] 3:39 PM CDT [place] Color, Urine STRAW YELLOW 04/27/2018 [facility] 3:39 PM CDT [place] Clarity, CLEAR CLEAR 04/27/2018 [facility] Urine 3:39 PM CDT [place] Glucose, NEGATIVE NEGATIVE 04/27/2018 [facility] U[facility] mg/dL 3:39 PM CDT [place] Bilirubin, NEGATIVE NEGATIVE 04/27/2018 [facility] Urine 3:39 PM [facility]T [place] Ketones, NEGATIVE NEGATIVE 04/27/2018 [facility] Urine mg/dL 3:39 PM [facility]T [place] Specific 1.025 1.000 04/27/2018 [facility] [place], ->=1.030 3:39 PM CDT [place] Urine Blood, [...] [place] [address] [place] [address] documented in this encounter Visit Diagnoses Diagnosis Dysuria documented in this encounter Care Teams Construction Millwright Relationship Specialty Start Date End Date Adriane Patel APRN, PHLEBOTOMY INSTRUCTOR PCP - General 09/22/17 07/06/19 100 [facility] [place] [address] documented as of this encounter
--- OUTSIDE RECORDS SUMMARY | 2021-12-10 15:23 | XMS_ITS | Encounter Summary ---
:1945 Author Organization [facility] Address [address] [place] [address] Care Team Providers Name Role Phone Adriane Patel Ronak WELDING EQUIPMENT REPAIRER SUPERVISOR, HOSPICE ADMINISTRATOR Primary Care Provider [phone] Reason for Visit Reason Comments UTI Encounter Details Date Type Department Care Team Description 04/27/2018 Office Visit Sanam Reich, Dysuria (Primary Dx); [address] WELDING EQUIPMENT REPAIRER SUPERVISOR, HOSPICE ADMINISTRATOR Type 2 diabetes mellitus wit h other specified complication, without long-term current use of insulin (HCC) [place], [place] [address] Social History [...] in this encounter Progress Notes Sanam Darnell, ANIMATOR - 04/27/2018 3:00 PM CDT Estab Patient [...] Results Urine culture (05/24/2018 11:33 AM CDT) [facility] gist Method Time Signature Urine Culture No Growth 05/25/2018 [place] 1:[address] [facility] Specimen Anatomical Collection Method Collection Time Receive d Time (Source) Location / / Volume Laterality Urine, Clean 05/24/2018 11:33 05/25/2018 1:09 Catch AM CDT PM CDT Narrative [facility] - 10/2018 1:20 PM CDT Patient does not have an Amoxicillin or PCN allergy Sanam Darnell WELDING EQUIPMENT REPAIRER SUPERVISOR, HOSPICE ADMINISTRATOR LAB MICROBIOLOGY - GENERAL O RDERABLES Performing Organization Address City/State/ZIP Code Phon e Number [facility] [address] [place] [address] (ABNORMAL) Urinalysis with reflex microscopic (clean catch) (04/27/2018 3:22 PM CDT) [facility] Method Time Signature Type CLEAN CATCH 04/27/2018 [facility] 3:39 PM CDT [place] Color, Urine STRAW YELLOW 04/27/2018 [facility] [place] 3:39 PM CDT [place] Clarity, CLEAR CLEAR 04/27/2018 [facility] Urine 3:39 PM CDT [place] Glucose, NEGATIVE NEGATIVE 04/27/2018 [facility] Urine mg/dL 3:39 PM CDT [place] Bilirubin, NEGATIVE NEGATIVE 04/27/2018 [facility] Urine 3:39 PM CDT [place] Ketones, NEGATIVE NEGATIVE 04/27/2018 [facility] Urine mg/dL 3:39 PM CDT [place] Specific 1.025 1.000 04/27/2018 [facility] [place], ->=1.030 3:39 PM CDT [place] Urine Blood, Urine NEGATIVE NEGATIVE 04/27/2018 [facility] [place] 3:39 PM CDT [place] pH, Urine 5.0 5.0 - 7.0 04/27/2018 [facility] [place] 3:39 PM CDT [place] Protein, NEGATIVE NEGATIVE-TRA 04/27/2018 [facility] U[place] CE mg/dL 3:39 PM CDT [place] Urobilinogen, 0.2 0.2 - 1.0 04/27/2018 [facility] [place] Urine E.U./dL 3:39 PM CDT [place] Nitrite, NEGATIVE NEGATIVE 04/27/2018 [facility] [place] Urine 3:39 PM CDT [place] Leukocytes, MODERATE (A) NEGATIVE 04/27/2018 [facility] [place] Urine 3:39 PM CDT [place] Specimen Anatomical Collection Method Collection Time Receive d Time (Source) Location / / Volume Laterality Urine (Urine, 04/27/2018 3:22 PM 04/28/19 19 3:22 Clean Catch) CDT PM CDT Sanam Darnell APRN, HOSPICE ADMINISTRATOR LAB URINE ORDERABLES Performing Organization Address City/State/ZIP Code Phon e Number [facility] [place] [address] [place] [address] documented in this encounter Visit Diagnoses Diagnosis Dysuria - Primary Type 2 diabetes mellitus with other spec ified complication, without long-term current use of insulin (HCC) Type 2 diabetes mellitus with other spec ified complication, without long-term current use of insulin (HCC) Dysuria documented in this encounter Care Teams Cop Breaker Relationship Specialty Start Date End Date Adriane Patel APRN, HOSPICE ADMINISTRATOR PCP - General 09/22/17 07/06/19 100 [facility] [place] [address] documented as of this encounter
--- OUTSIDE RECORDS SUMMARY | 2021-12-10 15:23 | XMS_ITS | Encounter Summary ---
:1945 Author Organization [facility] Address [address] [place] [address] Care Team Providers Name Role Phone Adriane Patel MANAGER DRUG SAFETY, ELECTRICIAN ELEVATOR MAINTENANCE Primary Care Provider [phone] Reason for Visit Reason Comments Med Refill Encounter Details Date Type Department Care Team Description 03/08/2018 Refill [place] Adriane Patel, Type 2 diabetes [address] MANAGER DRUG SAFETY, ELECTRICIAN ELEVATOR MAINTENANCE mellitus with other [place], [place] [address] [address] specified complication, [place], [place] [address] without long-term current use [...] She will start checking again more frequently. OZOOLOGIST Telephone Encounter - Adriane Patel APRN, LEONARD - 03/10/2018 2:14 PM PROTOZOOLOGIST Great then she understood the directions during our last clinical visit, did you happen to ask her how her blood sugars were running, with the increased dose. Thanks, Suresh OZOOLOGIST Telephone Encounter - Lana Knight LPN - 03/10/2018 1:48 PM CST One in the morning and one at night, 5mg tablets. OZOOLOGIST Telephone Encounter - Adriane Patel APRN, LEONARD - 03/10/2018 12:34 PM PROTOZOOLOGIST Please call the patient and verify the dose she is taking, and find out if her blood sugars have been doing. Thanks, Suresh OZOOLOGIST Telephone Encounter - Zoey Thomas MA - [...] Method certified by National Glycohemoglobin Standardization Program. OZOOLOGIST documented in this encounter Plan of Treatment Not on filedocumented as of this encounter Visit Diagnoses Diagnosis Type 2 diabetes mellitus with other spec ified complication, without long-term current use of insulin (HCC) - Primary documented in this encounter Care Teams Plaster Mold Maker Relationship Specialty Start Date End Date Adriane Patel, MANAGER DRUG SAFETY, ELECTRICIAN ELEVATOR MAINTENANCE PCP - General Family Medicine 08/20/[address] [place] [address] [place] [address] documented as of this encounter
--- OUTSIDE RECORDS SUMMARY | 2021-12-10 15:23 | XMS_ITS | Encounter Summary ---
:1945 Author Organization [facility] Address [address] [place] [address] Care Team Providers Name Role Phone Adriane Patel Ronak SCARFER OPERATOR, DYNAMOMETER TUNER Primary Care Provider [phone] Reason for Visit Reason Comments Advice Only f/u echo. Pt has a hx of CAD Encounter Details Date Type Department Care Team Description 12/30/2017 Consult [facility] Gregorio Mirza MD Chronic coronary artery dise ase (Primary Dx); [address] [facility] Edema, unspecified type; [place] [address] Essential hypertension [phone] Social History Tobacco Use Types Packs/Day Years [...] Comments Blood Pressure 165/86 12/30/2017 2:09 PM FITNESS SUPERVISOR Pulse 79 12/30/2017 2:09 PM FITNESS SUPERVISOR regular Temperature 37.6 ??C (99.7 ??F) 12/30/2017 2:09 PM FITNESS SUPERVISOR Respiratory Rate 18 12/30/2017 2:09 PM FITNESS SUPERVISOR Oxygen Saturation 98% 12/30/2017 2:09 PM FITNESS SUPERVISOR Inhaled Oxygen Concentration - - Weight 82.6 kg (182 lb) 12/30/2017 2:09 PM FITNESS SUPERVISOR Height - - Body Mass Index 32.25 [...] seen sooner if problems or questions arise. ESS SUPERVISOR documented in this encounter Progress Notes Gregorio Mirza MD - 12/30/2017 2:40 PM CST Consultation Patient ID: Marcial Adams is a 72 y.o. female. Referring Provider: Adriane Patel APRN, CNP HPI This very pleasant 72-year-old female is seen in initial Cardiology Consultation with the [facility] at the request of her [...] Most recently she has been followed by [facility] cardiology outreach in the community and was [...] advised to discontinue her aspirin per her community living coach but reinstituted after her symptoms of potential [...] be seen back in cardiology clinic in [place] preferably per patient in approximately 3 months. ESS SUPERVISOR documented in this encounter Plan of Treatment Not on filedocumented as of this encounter Visit Diagnoses Diagnosis Chronic coronary artery disease - Primar y Coronary atherosclerosis of unspecified type of vessel, [place] or graft Edema, unspecified type Essential hypertension Unspecified essential hypertension documented in this encounter Care Teams Dog Day Care Attendant Relationship Specialty Start Date End Date Adriane Patel APRN, DYNAMOMETER TUNER PCP - General 09/22/17 07/06/19 100 [place] [address] documented as of this encounter
--- OUTSIDE RECORDS SUMMARY | 2021-12-10 15:23 | XMS_ITS | Encounter Summary ---
:[address] [facility] Address [address] [place] [address] Care Team Providers Name Role Phone Adriane Patel APRN, CNP Primary Care Provider [phone] Reason for Referral Consultation (Routine) - Closed Specialty Diagnoses / Procedures Referred By Contact Refer red To Contact Diagnoses Benign paroxysmal positional vertigo, unspecified laterality Adriane Patel, [facility] [place] [address] [address] [place] [address] Phone: Fax: Referral ID Status Reason Start Date Expiration Date Visits Requ ested Visits Authorized [id number] Closed 02/26/2018 02/26/2019 1 1 Scheduling Instructions Please schedule the patient for physical therapy at [facility]. Thanks, Adriane Patel CNP AGE CLERK Reason for Visit Reason Onset Date Comments Referral 02/26/2018 Encounter Details Date Type Department Care Team Description 02/26/2018 Telephone [place] Adriane Patel, Referral [address] [facility] [address] [place], [place] [address] [phone] [place], [place] [address] Social History Tobacco Use [...] 12/23/2018 organizations such as sabianism groups, unions, [employer] or athletic groups, or school groups? [...] [place] - 02/26/2018 9:56 AM CST Faxed. AGE CLERK Telephone Encounter - Adriane Patel APRN, CNP - 02/26/2018 9:33 AM MESSAGE CLERK This has been completed. Please fax. Suresh Cm AGE CLERK Telephone Encounter - Ana Cristina Prado MA - 02/26/2018 8:42 AM CST Please send referral and we will fax. Patient will be seen at 11am today AGE CLERK Telephone Encounter - Phoebe Donohue - 02/26/2018 8:37 AM CST Patient woke up with vertigo again and would like referral to [facility]. They are saving a spot for her at 11:00 . Please fax referral to [phone]. AGE CLERK documented in this encounter Plan of Treatment Scheduled Referrals Name Type Priority Associated Diagnoses Order S chedule Ambulatory External Outpatient Referral Routine Benign paroxys mal Ordered: Referral positional vertigo, 01/11/20 19 unspecified laterality documented as of this encounter Visit Diagnoses Diagnosis Benign paroxysmal positional vertigo, un specified laterality - Primary documented in this encounter Care Teams Patron Attendant Relationship Specialty Start Date End Date Adriane Patel APRN, CAR BRACER PCP - General 09/22/17 07/06/19 100 [place] [address] documented as of this encounter
--- OUTSIDE RECORDS SUMMARY | 2021-12-10 15:23 | XMS_ITS | Encounter Summary ---
:1945 Author Organization [facility] Address [address] [place] [address] Care Team Providers Name Role Phone Adriane Patel SENIOR SERVICE TECHNICIAN, CONTROLLER MECHANIC Primary Care Provider [phone] Encounter Details Date Type Department Care Team Description 04/20/2018 Telephone [place] Adriane Patel, [address] SENIOR SERVICE TECHNICIAN, CONTROLLER MECHANIC [place], [place] [address] [address] [facility] [address] [phone] [place], [place] [address] Social History Tobacco Use [...] - 04/20/2018 8:37 AM CST Order faxed. TENANCE REPRESENTATIVE Telephone Encounter - Margareth Sanchez RN - 04/20/2018 8:20 AM CST Please fax cologuard order with face sheet to the number listed on the form. TENANCE REPRESENTATIVE documented in this encounter Plan of Treatment Not on filedocumented as of this encounter Visit Diagnoses Not on filedocumented in this encounter Care Teams Child Care Center Administrator Relationship Specialty Start Date End Date Adriane Patel, SENIOR SERVICE TECHNICIAN, CONTROLLER MECHANIC PCP - General 09/22/17 07/06/[address] [place] [address] [place] [address] documented as of this encounter
--- OUTSIDE RECORDS SUMMARY | 2021-12-10 15:23 | XMS_ITS | Encounter Summary ---
:1945 Author Organization [facility] Address [address] [place] [address] Care Team Providers Name Role Phone Adriane Patel HEAD WAITRESS, NUCLEAR TECHNOLOGIST Primary Care Provider [phone] Reason for Visit Reason Onset Date Comments Med Refill 02/17/2018 Encounter Details Date Type Department Care Team Description 02/17/2018 Refill [place] Adriane Patel, MAL, [address] [place], [place] [address] [address] [facility] [address] [phone] [place], [place] [address] Social History Tobacco [...] Notes Telephone Encounter - Adriane Patel APRN, NUCLEAR TECHNOLOGIST - 02/18/2018 8:05 AM BLENDING LINE ATTENDANT Will review the patient's medications during the clinical visit tomorrow, and then order her medications. DING LINE ATTENDANT Telephone Encounter - Ana Cristina Prado MA - 02/17/2018 2:59 PM CST I have pended a medication refill for your review. DING LINE ATTENDANT documented in this encounter Plan of Treatment Not on filedocumented as of this encounter Visit Diagnoses Not on filedocumented in this encounter Care Teams Sales Support Engineer Relationship Specialty Start Date End Date Adriane Patel APRN, CNP PCP - General 09/22/17 07/06/19 100 [facility] [place] [address] documented as of this encounter
--- OUTSIDE RECORDS SUMMARY | 2021-12-10 15:23 | XMS_ITS | Encounter Summary ---
:1945 Author Organization [facility] Address [address] [place] [address] Care Team Providers Name Role Phone Adriane Patel SANITARY LANDFILL SUPERVISOR, CAFETERIA OPERATOR Primary Care Provider [phone] Encounter Details Date Type Department Care Team Description 04/08/2018 Orders Only [place] Adriane Patel Subclinical hypothyroidism ( Primary Dx); [address] M, SANITARY LANDFILL SUPERVISOR, CAFETERIA OPERATOR Type 2 diabetes mellitus with other spec ified complication, without long-term current use of insulin (HCC) [place], [place] [address] [facility] [address] [address] [place] [address] Social History Tobacco Use Types Packs/Day Years [...] A1c in April along with a TSH. ER APPRENTICE documented in this encounter Plan of Treatment Not on filedocumented as of this encounter Results TSH (04/22/2018 10:33 AM ROOFER APPRENTICE) P athologist Signature TSH, Sensitive 2.05 0.46 - 04/22/2018 [facility] 4.68 mIU/L 8:41 PM [facility] Comment: The results from this [...] (Blood, 04/22/2018 10:33 04/22/2018 6:52 Venous) AM ROOFER APPRENTICE PM ROOFER APPRENTICE Adriane Patel APRN, CNP LAB BLOOD ORDERABLES Performing Organization Address City/State/ZIP Code Phon e Number [facility] [address] [place] [address] (ABNORMAL) Hemoglobin A1c (04/22/2018 10:33 AM ROOFER APPRENTICE) Analysis Performed At Patho logist Time Signature Hemoglobin A1C 9.0 (H) 4.0 - 5.6 04/22/2018 [place] % A1C 7:27 PM [facility] Comment: Reference Range 4.0-5.6% [...] (Blood, 04/22/2018 10:33 04/22/2018 6:52 Venous) AM ROOFER APPRENTICE PM ROOFER APPRENTICE Adriane Patel APRN, CAFETERIA OPERATOR LAB BLOOD ORDERABLES Performing Organization Address City/State/ZIP Code Phon e Number [facility] [address] [place] [address] documented in this encounter Visit Diagnoses Diagnosis Subclinical hypothyroidism - Primary Other specified acquired hypothyroidism Type 2 diabetes mellitus with other spec ified complication, without long-term current use of insulin (HCC) documented in this encounter Care Teams Audio Visual Project Manager Relationship Specialty Start Date End Date Adriane Patel APRN, CAFETERIA OPERATOR PCP - General 09/22/17 07/06/19 100 [place] [address] documented as of this encounter
--- OUTSIDE RECORDS SUMMARY | 2021-12-10 15:23 | XMS_ITS | Encounter Summary ---
:1945 Author Organization [facility] Address [address] [place] [address] Care Team Providers Name Role Phone Adriane Patel PRIMARY CARE PEDIATRICIAN, JAVA PROGRAMMER Primary Care Provider [phone] Reason for Visit Reason Onset Date Comments Med Refill 03/03/2018 Encounter Details Date Type Department Care Team Description 03/03/2018 Telephone [place] Adriane Patel, Med Refill [address] PRIMARY CARE PEDIATRICIAN, JAVA PROGRAMMER [place], [place] [address] [address] [facility] [address] [phone] [place], [place] [address] Social History Tobacco Use [...] LPN - 03/04/2018 7:50 AM CST Noted E UP ARTIST APPRENTICE Telephone Encounter - Brenda House - 03/03/2018 4:40 PM CST Picked up glipizide at [facility] already E UP ARTIST APPRENTICE Telephone Encounter - Ana Cristina Prado MA - 03/03/2018 10:15 AM CST Left message for patient. Need to know if she needs her Glipizide sent to [facility] or [facility]. E UP ARTIST APPRENTICE documented in this encounter Plan of Treatment Not on filedocumented as of this encounter Visit Diagnoses Not on filedocumented in this encounter Care Teams Ecd Relationship Specialty Start Date End Date Adriane Patel APRN, JAVA PROGRAMMER PCP - General 09/22/17 07/06/19 [facility] [address] documented as of this encounter
--- OUTSIDE RECORDS SUMMARY | 2021-12-10 15:24 | XMS_ITS | Encounter Summary ---
:1945 Author Organization [facility] Address [address] [place] [address] Care Team Providers Name Role Phone Unavailable Primary Care Provider Unavailable Encounter Details Date Type Department Care Team Description 11/18/2013 Hospital Encounter [facility] Ifeoma Quigley opausal bleeding Radiology [address] [place] [address] Social History Tobacco Use Types [...]
--- OUTSIDE RECORDS SUMMARY | 2021-12-10 15:24 | XMS_ITS | Encounter Summary ---
:1945 Author Organization [facility] Address [address] [place] [address] Care Team Providers Name Role Phone Adriane Patel BRUSH HOLDER INSPECTOR, IT INFRASTRUCTURE MANAGER Primary Care Provider [phone] Reason for Referral Cardiac (Routine) - Closed Specialty Diagnoses / Procedures Referred By Contact Refer red To Contact Cardiology Diagnoses Localized edema Dyspnea on exertion Coronary artery disease, angina presence unspecified, unspecified vessel or lesion type, unspecified whether king [place] or transplanted heart Adriane Patel, Cardiology Procedures Echocardiogram 2D complete with spec and color form doppler [facility] [address] [facility] [address] [place] [address] [place] [address] Fax: Referral ID Status Reason Start Date Expiration Date Visits Requ ested Visits Authorized [id number] Closed 11/13/2017 05/12/2018 1 1 Encounter Details Date Type Department Care Team Description 11/13/2017 Orders Only [place] Adriane Patel Localized edema (Primary Dx) ; [address] M, LEONARD RESENDEZ Dyspnea on exertion; [place], [place] 100 [facility] Coronary artery disease, angina presence unspecified, unspecified vessel or lesion type, unspecified whether [place] or transplanted heart [address] [place] [address] [phone] Social History Tobacco Use Types Packs/Day Years [...] 12/23/2018 organizations such as worship groups, unions, [employer] or athletic groups, or school groups? How [...] unspecified vessel or lesion type, unspecified whether king salmon or transplanted heart documented as of this encounter Visit Diagnoses Diagnosis Localized edema - Primary Edema Dyspnea on exertion Other dyspnea and respiratory abnormalit y Coronary artery disease, angina presence unspecified, unspecified vessel or lesion type, unspecified whether king salmon or crystal splanted heart documented in this encounter Care Teams Pool Technician Relationship Specialty Start Date End Date Adriane Patel APRN, IT INFRASTRUCTURE MANAGER PCP - General 09/22/17 07/06/19 100 [place] [address] documented as of this encounter
--- OUTSIDE RECORDS SUMMARY | 2021-12-10 15:24 | XMS_ITS | Encounter Summary ---
:1945 Author Organization [facility] Address [address] [place] [address] Care Team Providers Name Role Phone Adriane Patel Ronak TIN WORKER, SUTURE POLISHER Primary Care Provider [phone] Encounter Details Date Type Department Care Team Description 11/30/2017 Lab [place] Vitamin D deficiency; [address] Renal insufficiency [place], [place] [address] Social History Tobacco Use [...] CDT) athologist Signature GFR 54 (A) 11/30/2017 [facility] 1:13 PM CDT CENTER LABORATORY >60 11/30/2017 [facility] [place] GFR 1:13 PM CDT CENTER LABORATORY Comment: [...] CDT 12:38 PM CDT Adriane Patel APRN, SUTURE POLISHER LAB BLOOD ORDERABLES Performing Organization Address City/State/ZIP Code Phon e Number [facility] [address] [place] [address] (ABNORMAL) Basic metabolic panel (11/30/2017 12:38 PM [...] - 100 mg/dL 11/30/2017 1:13 PM CDT [facility] [place] Calcium, Total,S 9.7 8.4 - 10.2 mg/dL 11/30/2017 1:13 PM CDT [facility] [place] Comment: . Fasting? No 11/30/2017 12:41 PM CDT [facility] [place] Specimen Anatomical Collection Method Collection Time Receive d Time (Source) Location / / Volume Laterality Blood (Blood, 11/30/2017 12:38 11/30/2017 Venous) PM CDT 12:38 PM CDT Adriane Patel APRN, LEONARD LAB BLOOD ORDERABLES Performing Organization Address City/[facility]/ZIP Code Phon e Number [facility] [place] [address] [place] [address] Vitamin D, Total (11/30/2017 12:38 PM CDT) P athologist Signature Vitamin D, 48.7 ng/mL 12/01/2017 [facility] 2:18 PM CDT CENTER LABORATORY Comment: ---- [...] CNP LAB BLOOD ORDERABLES Performing Organization Address City/[facility]/ZIP Code Phon e Number [facility] [address] [place] [address] documented in this encounter Visit Diagnoses Diagnosis Vitamin D deficiency Renal insufficiency Unspecified disorder of kidney and urete r documented in this encounter Care Teams Secondary Art Teacher Relationship Specialty Start Date End Date Adriane Patel APRN, SUTURE POLISHER PCP - General 09/22/17 07/06/19 100 [facility] [place], [place] [address] documented as of this encounter
--- OUTSIDE RECORDS SUMMARY | 2021-12-10 15:24 | XMS_ITS | Encounter Summary ---
:1945 Author Organization [facility] Address [address] [place] [address] Care Team Providers Name Role Phone Adriane Patel INJECTION MOLDING SUPERVISOR, SKILL TRAINING PROGRAM COORDINATOR Primary Care Provider [phone] Reason for Visit Reason Onset Date Comments referral 12/04/2017 fax Encounter Details Date Type Department Care Team Description 12/04/2017 Telephone [place] Adriane Patel, referral (fax) [address] INJECTION MOLDING SUPERVISOR, [place], [place] [address] [phone] [place], [place] [address] Social History Tobacco Use [...] 12/04/2017 8:55 AM CDT Referral faxed to [facility] [phone] Surgery/Scope. Telephone Encounter - Margareth Sanchez RN - 12/04/2017 8:36 AM CDT Please fax referral to GI at [facility] in [place]. documented in this encounter Plan of Treatment Not on filedocumented as of this encounter Visit Diagnoses Not on filedocumented in this encounter Care Teams Metal Crafts Teacher Relationship Specialty Start Date End Date Adriane Patel APRN, SKILL TRAINING PROGRAM COORDINATOR PCP - General 09/22/17 07/06/19 100 [facility] [place] [address] documented as of this encounter
--- OUTSIDE RECORDS SUMMARY | 2021-12-10 15:24 | XMS_ITS | Encounter Summary ---
:1945 Author Organization [facility] Address [address] [place] [address] Care Team Providers Name Role Phone Adriane Patel Ronak DESIGNATED BROKER, OPERATIONS DEVELOPER Primary Care Provider [phone] Encounter Details Date Type Department Care Team Description 12/01/2017 Lab [place] Alia, initial encounter [address] [place], [place] [address] Social History Tobacco Use [...] Signature H pylori Ag, NEGATIVE Negative 12/01/2017 [facility] 2:47 PM CDT [facility] Comment: H. pylori antigen is absent or below the level of detection. Specimen Anatomical Collection Method Collection Time Receive d Time (Source) Location / / Volume Laterality Stool (Per 12/01/2017 7:30 AM 8 Rectum) CDT 12:59 PM CDT Adriane Patel APRN, OPERATIONS DEVELOPER LAB BODY FLUIDS AND STOOL S ORDERABLES Performing Organization Address City/State/ZIP Code Phon e Number [facility] [address] [place] [address] documented in this encounter Visit Diagnoses Diagnosis Hungry, initial encounter documented in this encounter Care Teams Manager Managed Backup Services Relationship Specialty Start Date End Date Adriane Patel APRN, OPERATIONS DEVELOPER PCP - General 09/22/17 07/06/19 100 [place] [address] documented as of this encounter
--- OUTSIDE RECORDS SUMMARY | 2021-12-10 15:24 | XMS_ITS | Encounter Summary ---
:[address] [facility] Address [address] [place] [address] Care Team Providers Name Role Phone Unavailable Primary Care Provider Unavailable Encounter Details Date Type Department Care Team Description 02/23/2017 Hospital Encounter [facility] Borders-Patel Dizzi ness and Radiology , DO felipe Harkins [address] [facility] [address] [place] [address] [place] [address] Social History Tobacco Use Types Packs/Day Years [...] More than 4 times per year 12/23/2018 islam services? Do you belong to any clubs [...] 02/23/2017 1:16 PM Results for this CONTRAST ASSISTED LIVING ASSISTANT procedure are i n the results section. documented in this encounter Results MRI head w and wo IV contrast (02/23/2017 1:16 PM ASSISTED LIVING ASSISTANT) Anatomical Region Laterality Modality Head and Neck Magnetic Resonance Specimen (Source) Anatomical Collection Method Collection Time Re ceived Time Location / / Volume Laterality 02/23/2017 1:16 PM ASSISTED LIVING ASSISTANT Impressions 02/23/2017 2:48 PM ASSISTED LIVING ASSISTANT Impression: 1. There is no evidence of acute infarct ion, intracranial hemorrhage or mass lesion. 2. MRI brain is normal for age. 3. Inflammatory paranasal sinus changes most prominent in the sphenoid sinus. Dictated by Gregorio Mccabe MD @ Feb ??8 ??2:28PM Signed by Dr. Gregorio Mccabe @ [place] ??2017 ??2:48PM Narrative 02/23/2017 2:48 PM ASSISTED LIVING ASSISTANT Indication: 71-year-old female with vertigo. Technique: [...]
--- OUTSIDE RECORDS SUMMARY | 2021-12-10 15:24 | XMS_ITS | Encounter Summary ---
:1945 Author Organization [facility] Address [address] [place] [address] Care Team Providers Name Role Phone Adriane Patel Ronak OPTIMIZATION SPECIALIST, BOAT JOINER Primary Care Provider [phone] Reason for Visit Reason Comments Diarrhea Encounter Details Date Type Department Care Team Description 11/30/2017 Office Visit Dandy Fernándezine Diarrhea, unspecified type ( Primary Dx); [address] M, LEONARD RESENDEZ Insomnia, unspecified type; [place], [place] [address] Shakes; [address] [place] [address] Vitamin D deficiency; [phone] Hunger p ain, initial encounter; Renal insuffici [...] vitamin C 500 mg tablet in the [employer] [facility] which she takes. ROS: GENERAL: No fever, no chills but at times she does feel cold, which she feels is from her rheumatoidarthritis. The patient has lost 10 pounds since her rheumatoid arthritis diagnosis, and correlates her weight loss with this diagnosis, and not her gastrointestinal symptoms. BREASTS: The patient reports she did have a mammogram in [place] in November, and does not know the results, as they had to obtain her previous films to compare before resulting. GASTROINTESTINAL: See HPI. The patient has a long-standing history of diarrhea, even recalls back [id number], or 2011, it was recommended she start [...] with an EGD and a colonoscopy at [place],for further evaluation of her hunger discomfort with [...] Signature H pylori Ag, NEGATIVE Negative 12/01/2017 [facility] 2:47 PM T [facility] CENTER LAB[facility]ATORY Comment: H. pylori antigen is absent or below the level of detection. Specimen Anatomical Collection Method Collection Time Receive d Time (Source) Location / / Volume Laterality Stool (Per 12/01/2017 7:30 AM 8 Rectum) CDT 12:59 PM CDT Adriane Patel OPTIMIZATION SPECIALIST, BOAT JOINER LAB BODY FLUIDS AND STOOL S ORDERABLES Performing Organization Address City/State/ZIP Code Phon e Number [facility] [address] [place] [address] Vitamin D, Total (11/30/2017 12:38 PM CDT) athologist Signature Vitamin D, 48.7 ng/mL 12/01/2017 [facility] 2:18 PM CDT [place] [facility] Comment: ---- Deficient ?<20 ? ng/mL [...] CDT 12:59 PM CDT Adriane Patel APRN, BOAT JOINER LAB BLOOD ORDERABLES Performing Organization Address City/State/ZIP Code Phon e Number [facility] [address] [place] [address] (ABNORMAL) Basic metabolic panel (11/30/2017 12:38 PM CDT) athologist Signature Sodium 139 135 - 145 11/30/2017 [facility] [place] mmol/L 1:13 PM CDT [place] Potassium [...] - 25 mg/dL 11/30/2017 1:13 PM CDT [facility] [place] Comment: . Glucose 149 (H) 70 - 100 mg/dL 11/30/2017 1:13 PM CDT Deana CUELLAR Calcium, Total,S 9.7 8.4 - 10.2 mg/dL 11/30/2017 1:13 PM CDT [facility] [place] CUELLAR Comment: . Fasting? No 11/30/2017 12:41 PM CDT [facility] [place] C[place]LL[place] Specimen Anatomical Collection Method Collection Time Receive d Time (Source) Location / / Volume Laterality Blood (Blood, 11/30/2017 12:38 11/30/2017 Venous) PM CDT 12:38 PM CDT Adriane Patel APRN, BOAT JOINER LAB BLOOD ORDERABLES Performing Organization Address City/State/ZIP Code Phon e Number [facility] J[place] CUELLAR [address] [place] [address] documented in this encounter Visit Diagnoses Diagnosis Diarrhea, unspecified type - Primary Insomnia, unspecified type Shakes Abnormal involuntary movements Vitamin D deficiency Hunger pain, initial encounter Renal insufficiency Unspecified disorder of kidney and urete r Anemia, unspecified type documented in this encounter Care Teams Yarn Tester Relationship Specialty Start Date End Date Adriane Patel APRN, BOAT JOINER PCP - General 09/22/17 07/06/19 100 [facility] [place] [address] documented as of this encounter
--- OUTSIDE RECORDS SUMMARY | 2021-12-10 15:24 | XMS_ITS | Encounter Summary ---
:1945 Author Organization [facility] Address [address] [place] [address] Care Team Providers Name Role Phone Adriane Patel Ronak HOT SAW OPERATOR, WILDFIRE PREVENTION SPECIALIST Primary Care Provider [phone] Encounter Details Date Type Department Care Team Description 12/24/2017 Consult [place] Gregorio Mirza MD Canceled (Provider) [address] [place], [place] [address] Social History Tobacco Use [...] on filedocumented in this encounter Care Teams Processing Talc And Borate Supervisor Relationship Specialty Start Date End Date Adriane Patel, HOT SAW OPERATOR, WILDFIRE PREVENTION SPECIALIST PCP - General 09/22/17 07/06/19 [address] [place] [address] documented as of this encounter
--- OUTSIDE RECORDS SUMMARY | 2021-12-10 15:24 | XMS_ITS | Encounter Summary ---
:1945 Author Organization [facility] Address [address] [place] [address] Care Team Providers Name Role Phone Adriane Patel PROOF MACHINE OPERATOR, AUTOMOTIVE BRAKE TECHNICIAN Primary Care Provider [phone] Encounter Details Date Type Department Care Team Description 12/07/2017 Telephone [place] Adriane Patel, [address] PROOF MACHINE OPERATOR, AUTOMOTIVE BRAKE TECHNICIAN [place], [place] [address] [address] [facility] [address] [phone] [place], [place] [address] Social History Tobacco Use [...] Mammogram results will be[facility] to us from [facility]. Telephone Encounter - Adriane Patel NP - 12/07/2017 1:21 PM CDT The patient is inquiring about her mammogram results from [facility], please call and find out if they are available. Thanks Suresh documented in this encounter Plan of Treatment Not on filedocumented as of this encounter Visit Diagnoses Not on filedocumented in this encounter Care Teams Board Certified Arts Therapist Relationship Specialty Start Date End Date Adriane Patel, PROOF MACHINE OPERATOR, AUTOMOTIVE BRAKE TECHNICIAN PCP - General 09/22/17 07/06/19 100 [place] [address] documented as of this encounter
--- OUTSIDE RECORDS SUMMARY | 2021-12-10 15:24 | XMS_ITS | Encounter Summary ---
:1945 Author Organization [facility] Address [address] [place] [address] Care Team Providers Name Role Phone Adriane Patel GUN STOCK MAKER, DRAPERY MAKER Primary Care Provider [phone] Reason for Visit Reason Onset Date Comments Medication side effect 12/02/2017 Encounter Details Date Type Department Care Team Description 12/02/2017 Telephone [place] Adriane Patel, Medication side effect [address] GUN STOCK MAKER, DRAPERY MAKER [place], [place] [address] [address] [facility] [address] [phone] [place], [place] [address] Social History Tobacco Use [...] it in July. DEXA: Last 08/05/2016 Through [facility] Jardiance: Samples from rheumatology had been getting her by but than when running through [place] was $300.00, she would like to try [...] filedocumented in this encounter Care Teams Furniture Stainer Relationship Specialty Start Date End Date Adriane Patel, GUN STOCK MAKER, DRAPERY MAKER PCP - General 09/22/17 07/06/19 [address] [place] [address] documented as of this encounter
--- OUTSIDE RECORDS SUMMARY | 2021-12-10 15:24 | XMS_ITS | Encounter Summary ---
:1945 Author Organization [facility] Address [address] [place] [address] Care Team Providers Name Role Phone Adriane Patel STATIONARY STEAM ENGINEER, AIR ANTISUBMARINE OFFICER Primary Care Provider [phone] Encounter Details Date Type Department Care Team Description 11/13/2017 Orders Only [place] Adriane Patel, [address] STATIONARY STEAM ENGINEER, AIR ANTISUBMARINE OFFICER [place] [address] [address] [facility] [address] [phone] [place], [place] [address] Social History Tobacco Use [...] for this COMPLETE WITH SPEC AND PM DEPUTY FELONY CLERK proce ines are in COLOR FORM DOPPLER the resul ts section. documented in this encounter Results Echocardiogram 2D complete with spec and color form doppler (12/24/2017 12:26 PM DEPUTY FELONY CLERK) Anatomical Region Laterality Modality Ultrasound Specimen (Source) Anatomical Collection Method Collection Time Re ceived Time Location / / Volume Laterality 12/24/2017 12:26 PM DEPUTY FELONY CLERK Narrative This result has an attachment that is no t available. Adriane Patel APRN, CNP CV ECHO PROCEDURES documented in this encounter Visit Diagnoses Not on filedocumented in this encounter Care Teams Registered Nurse Supervisor Relationship Specialty Start Date End Date Adriane Patel APRN, AIR ANTISUBMARINE OFFICER PCP - General 09/22/17 07/06/19 100 [place] [address] documented as of this encounter
--- OUTSIDE RECORDS SUMMARY | 2021-12-10 15:24 | XMS_ITS | Encounter Summary ---
:1945 Author Organization [facility] Address [address] [place] [address] Care Team Providers Name Role Phone Adriane Patel Ronak MASTER PRINTER, RESAW CARRIAGE OPERATOR Primary Care Provider [phone] Encounter Details Date Type Department Care Team Description 12/23/2017 Orders Only [place] Cardiology Tab[place]aei, Coronary artery disease [address] [place] [facility] MD [place] [address] angina pectoris, unspecified ves judith or lesion type, un specified whether k[place] or transplanted he art (HCC) (Primary Dx) [...] unspecified vessel or lesion type, unspecified whether [place] or transplanted heart (HCC) - Primary documented in this encounter Care Teams Director Behavioral Health Relationship Specialty Start Date End Date Adriane Patel APRN, RESAW CARRIAGE OPERATOR PCP - General 09/22/17 07/06/19 100 [facility] [place] [address] documented as of this encounter
== END 2021-12-10 14:29 | disposition home or self-care (01) ==
LOC: MAMMO 14:28
PROVIDERS: PCP Nurse Practitioner Family; Visit Provider Nurse Practitioner Family
DX: Z12.31 Encounter for screening mammogram for malignant neoplasm of breast (principal)
CPT/HCPCS: 77063; 77067; 84443

== ENCOUNTER 2022-01-21 13:42 | Outpatient (CLI) | payer MEDICARE, BC, SELFPAY ==
--- OUTSIDE RECORDS SUMMARY | 2022-01-21 13:46 | XMS_ITS | Encounter Summary ---
:1945 Author Organization [facility] Address [address] [place] [address] Care Team Providers Name Role Phone Elsewhere, Pcp Primary Care Provider Unavailable Encounter Details Date Type Department Care Team Description 01/14/2022 Documentation Department of Cardiovascular Suzy Hines [facility] in [place], [place] [address] [place] [address] Social History Tobacco Use Types Packs/Day Years [...] Encounters Date Type Specialty Care Team Description 01/22/2022 Office Visit Cardiovascular Disease Maritza Currie M.D. [address] [place], [place] [phone] (Wo rk) documented as of this encounter Visit Diagnoses Not on filedocumented in this encounter Additional Health Concerns Assessment Noted Time PHQ-9 Depression Total Score: 7 06/21/2014 9:20 AM CDT documented as of this encounter Care Teams Laboratory Asst Relationship Specialty Start Date End Date Elsewhere, Pcp PCP - General Internal Medicine 01/12/22 documented as of this encounter
--- OUTSIDE RECORDS SUMMARY | 2022-01-21 13:46 | XMS_ITS | Clinical Summary ---
:1945 Author Organization [facility] [place] [address] Care Team Providers Name Role Phone Lincoln [...] Describe In 03/19/2010 Unknown reaction Comment Field Pulrbic-Vcb-Esn Other - Describe In 01/05/2019 Intol erance [...] D3, 5,000 unit per week tab tablet insulin glargine, Take 22 units 0 12/05/2020 Active U-100, (Basaglar once a day in the KwikPen U-100 Insulin) PM for diabetes 100 unit/mL (3 mL) pen OR DIRECTED levothyroxine Take 75 mcg by 0 12/05/2020 Active (SYNTHROID) 75 mcg mouth. tablet leflunomide (ARAVA) 20 Take 20 mg by 0 Active mg tablet mouth. omeprazole (PRILOSEC) Take 1 Capsule 30 Capsule 3 03/22/2021 Active 20 mg Delayed-Release (20 mg) by mouth capsuleIndications: once daily before Abdominal pain, a meal. Take epigastric 30-60 minutes before a meal/food once a day. allopurinoL (ZYLOPRIM) Take 100 mg by 0 10/23/2021 Active 100 mg tablet mouth. Trulicity 0.75 mg/0.5 INJECT 0.75 MG 0 07/16/2021 Active mL subcutaneous pen UNDER THE SKIN ONCE WEEKLY clopidogreL (PLAVIX) 0 12/10/2021 Active 75 mg tablet pantoprazole Take 1 Tablet (40 90 Tablet 1 12/16/2021 Active (PROTONIX) 40 mg mg) by mouth once delayed-release daily. Take 30 tabletIndications: minutes before Heartburn supper. Active Problems Problem Noted Date Rheumatoid arthritis 03/13/2021 Stage 3 chronic kidney disease 03/13/2021 Type 2 diabetes mellitus with complication, with long- term current use of 03/13/2021 insulin Encounters Date Type Specialty Care Team Description 12/17/2021 Office Visit Gail Darnell Consult (Thro at Discomfort) CAROLE Me[place] 12/16/20[facility] Musculoskeletal Problem (Neck and jaw pain, n o injury, on/off since Sandra stark); Immunization/In jection 12/16/2021 Telephone Trevor Marc Appoin tment Request 12/16/2021 Travel 12/09/2021 Travel 12/09/2021 Nurse Triage Greg Flynn, Chest P ain 12/09/2021 Telephone Trevor Marc, Error- please disregard from Last 3 Months Immunizations Name Administration Dates Next Due Influenza Virus, Unspecified 12/10/2015, 11/29/2014, 014, 11/16/2012, 11/30/2010, 12/31/2009, 12/17/2009 Influenza, High-dose Inactivated 01/17/2019, 01/18/2018, , 12/10/2015, 12/01/2015, 11/29/2014, 11/22/2014, 11/23/2013 Influenza, High-dose Quadrivalent 11/09/2020 Inactivated Influenza, IIV3 (Age 6-35 mos) 01/08/2009 Influenza, IIV3 (Age >=3 years) 12/17/2009 Influenza, Inactivated AIIV4 (Age 65+ 12/16/2021 Years) Preserv Free Pneumococcal Poly,23-Valent 08/16/2019, 01/28/2008 (Pneumovax) Pneumococcal conj 13-Valent (Prevnar 06/21/2014 13) Td, Preservative Free (age >= 7 08/16/2019 Years) Tdap 02/14/2010 Zoster (Zostavax-ZVL, live) 09/20/2015, 08/28/2015 [...] Reading Time Taken Comments Blood Pressure 120/56 12/17/2021 10:04 AM CDT Pulse 93 12/17/2021 10:04 AM CDT Temperature 36.6 ??C (97.8 ??F) 03/13/2021 11:51 AM INSURANCE AGENCY OWNER Respiratory Rate - - Oxygen Saturation 99% 12/16/2021 10:03 AM CDT Inhaled Oxygen Concentration - - Weight 80.8 kg (178 lb 3.2 oz) 12/16/2021 10:03 AM CDT Height 157.5 cm (5' 2) 12/16/2021 10:03 AM CDT Body Mass Index 32.59 12/16/2021 10:03 AM CDT Plan of Treatment Upcoming Encounters Date Type Specialty Care Team Description 02/19/2022 Office Visit [facility] Marc MD [address] [facility] [address] (Wo rk) Health Maintenance Due Date Last Done Comments Depression screening for age 12+ 1957 Hepatitis C screening for age 0406/05/1963 18-79 DEXA/DXA scan for age 65+ 2010 Medicare Wellness for age 65+ 2010 Zoster (shingles) series for age 0911/15/2015 09/20/2015, 01/2016 50+ (2 of 3) COVID-19 vaccine series (4 - 02/12/2021 12/18/2020, 021, Booster for Pfizer series) 04/20/2020 BMI (ht and wt on same day) for 12/16/2022 12/16/2021, 02/17 age 18+ Tetanus booster 08/15/2029 08/16/2019, 02/14/2010 Tdap Completed 02/14/2010 Pneumococcal series for age 65+ Completed 08/16/2019, 0507/2014, 01/28/2008 Influenza for age 65+ Completed 12/16/2021, 11/09/2020, 01/17/2019, Additional history exists Results Not on filefrom Last 3 Months Insurance Payer Benefit Plan / Subscriber ID Effective Dates Phone Addre ss Type Group BLUE CROSS MR BLUE CROSS [id number] 2016-Present [address] [address] [place], [place] [id number] Care Teams Employment And Claims Aide Relationship Specialty Start Date End Date Lincoln Vazquez PCP - General 10/22/[address] [place] [address]
--- OUTSIDE RECORDS SUMMARY | 2022-01-21 13:46 | XMS_ITS | Encounter Summary ---
:1945 Author Organization [facility] Address [address] [place] [address] Care Team Providers Name Role Phone Elsewhere, Pcp Primary Care Provider Unavailable Encounter Details Date Type Department Care Team Description 01/15/2022 Documentation Department of Cardi[facility]asi Alexander[facility] [place] [address] [facility] [address] [place] [id number] [phone] (Wo rk) Social History Tobacco Use Types [...] documented as of this encounter Progress Notes Derrick Alexander M.D. - 01/15/2022 8:19 PM CST [facility] TRIAL: GENOTYPE RESULTS AND STUDY DRUG REGIMEN Marcial Adams 1945 [id number] Date of Enrollment: 01/14/2022 [id number] Metabolizer Status: Normal (extensive) metabolizer I called her this afternoon to relay the lab test results and medication changes as outlined below. Genotype Test Interpretation The genotype lab test result shows that Marcial Adams responds appropriately to clopidogrel (Plavix). Study Medication Regimen Continue Clopidogrel (standard 75 mg daily) Stop aspirin 81 mg daily. Continue clopidogrel (Plavix) 75 mg (one tablet) daily in the morning. The duration of the trial is 90 days post-PCI. At the end of the trial, a long- term antiplatelet regimen can determined by the patient's primary mash tub cooker operator. Stopping the aspirin is an important part of the trial to reduce bleeding risk after PCI. If a healthcare provider wants to restart aspirin, please notify us immediately. Similarly, if an indication tostart warfarin, Eliquis, Xarelto, or other blood thinner arises, please let us know immediately. If questions, please contact the study team (contact information below). Derrick Alexander M.D. 01/15/22 [facility] STUDY TEAM CONTACT INFORMATION Luis Alberto Bernardo MD, MPH (Cartridge Feeder) Email: [email or web address] Pager: [phone] Derrick Alexander MD (Co-Terrapin Fisher) Email: [email or web address] Pager: [phone] Lana Hines (Dry Starch Supervisor) Email: [email or web address] Pager: [phone] Ángel Wilks RN (Study Nurse) Email: [email or web address] Pager: [phone] TRAINING INSTRUCTOR documented in this encounter Plan of Treatment Upcoming Encounters Date Type Specialty Care Team Description 01/22/2022 Office Visit Cardiovascular Disease Maritza Currie M.D. [address] [place] [address] [phone] (Wo rk) documented as of this encounter Visit Diagnoses Not on filedocumented in this encounter Additional Health Concerns Assessment Noted Time PHQ-9 Depression Total Score: 7 06/21/2014 9:20 AM CDT documented as of this encounter Care Teams Rickshaw Driver Relationship Specialty Start Date End Date Elsewhere, Pcp PCP - General Internal Medicine 01/12/22 documented as of this encounter
--- OUTSIDE RECORDS SUMMARY | 2022-01-21 13:46 | XMS_ITS | Encounter Summary ---
:1945 Author Organization [facility] Address [address] [place] [id number] Care Team Providers Name Role Phone Elsewhere, Pcp Primary Care Provider Unavailable Reason for Referral Outpatient (Routine) - Authorized Specialty Diagnoses / Referred By Contact Referred To Contact Procedures Cardiovascular Diseases / Diagnoses Ischemic Heart Chronic Disease Troy Jackson [facility] Cardiovascular Disease Lee Rosas, Ph.D. [address] [place] [phone] Referral ID Status Reason Start Date Expiration Date Visits V isits Requested Authorized [id number] Authorized 01/14/2022 01/14/2023 1 1 utpatient (Routine) - Authorized Specialty Diagnoses / Procedures Referred By Contact Refer red To Contact Diagnoses Non-ST Elevation Myocardial Infarction (HCC) Percutaneous Transarterial Coronary Angioplasty Status Post Coronary Stent Status Post Troy Jackson [facility] Procedures Cardiac Rehab Program MArmen, Ph.D. [address] [place] [phone] Referral ID Status Reason Start Date Expiration Date Visits V isits Requested Authorized [id number] Authorized 01/14/2022 01/14/2023 36 36 RTS DEVELOPER Encounter Details Date Type Department Care Team Description 01/12/2022 - Hospital Encounter [facility] Gilberto Pedraza M.D. [address] [place] [phone] Elevated Troponin (Primary Dx); 01/14/2022 [facility] Troy Jackson M.D., Ph.D. [address] [place] [phone] Non-ST Elevation Myocardial Infarction ( HCC); [facility], [facility] T ransarterial Coronary Angioplasty Status Post; [facility] [place] Coronary Stent Status Post; Building, [facility] Floor [address] [place] [phone] Social History Tobacco Use Types Packs/Day Years [...] Sign Reading Time Taken Comments Blood Pressure 144/67 01/14/2022 12:45 PM REPORTS DEVELOPER Pulse 68 01/14/2022 12:45 PM REPORTS DEVELOPER Temperature 36.6 ??C (97.9 ??F) 01/14/2022 12:45 PM REPORTS DEVELOPER Respiratory Rate 16 01/14/2022 12:45 PM REPORTS DEVELOPER Oxygen Saturation 96% 01/14/2022 12:45 PM REPORTS DEVELOPER Inhaled Oxygen Concentration - - Weight 78.1 kg (172 lb 2.9 oz) 01/13/2022 7:19 AM REPORTS DEVELOPER Height 156 cm (5' 1.42) 01/12/2022 11:33 PM REPORTS DEVELOPER Body Mass Index 32.09 01/12/2022 11:33 PM REPORTS DEVELOPER documented in this encounter Discharge Summaries Andrea Barros M.D. - 01/14/2022 11:02 AM CST DISCHARGE SUMMARY BRIEF OVERVIEW Discharge Provider: Troy Jackson M.D., Ph.D. Primary Care Providers: Elsewhere, Pcp (General) No address on file Discharge Provider Team: RSElle CARD 2 Primary Care Provider Phone Number: None Primary Care Provider Fax Number: None Admission Date: 01/12/2022 Discharge Date: 01/14/22 PRINCIPAL DIAGNOSIS Non-ST Elevation Myocardial Infarction (HCC) SECONDARY DIAGNOSES Principal Problem (Resolved): Non-ST Elevation Myocardial Infarction (HCC) Active Problems: Diabetes Mellitus Type 2 (HCC) Coronary Stent Status Post Osteoporosis Hypertensive Chronic Kidney Disease (CKD) Stage 3b Glomerular Filtration Rate (GFR) 30 To 44 (HCC) Gout Chronic Kidney Disease (CKD), Stage 3b Glomerular Filtration Rate (GFR) 30 To 44 (HCC) Atherosclerotic Heart Disease [place] Coronary Artery With Other Forms Angina Pectoris (Stable Angina/Angina Of Exertion) (HCC) Arthritis Rheumatoid (HCC) Anxiety Resolved Problems: Anemia Elevated Troponin Surgery Information This Encounter Past Procedures (01/14/2021 to Today) Date Procedures Providers Location 01/13/2022 CORONARY ANGIOGRAPHY, Left Heart Catheterization, Percutaneous Coronary Angioplasty, Stent Placement Annika Hankins M.D.Jhand, Aravdeep S, M.B.BJairoS. RST ROMB CCL DISCHARGE DISPOSITION Home or Self Care [1] ACTIVE ISSUES REQUIRING FOLLOW UP Cardiology recommendations: - Antiplatelet per [facility]AMP Trial. Please see Dr. Alexander's note dated 01/14/2022 for further details. - START taking metoprolol 12.5 mg twice daily for treatment of coronary artery disease. - ACEi/ARB was not started at time of discharge due to KAIT. Would recommend starting losartan for GDMT as patient had potential side effects with lisinopril (unlikely but would avoid anyway as there are equivalent options). - Follow up with Cardiology on 01/22 for management of coronary artery disease. - Follow up with [facility] for cholesterol management. General recommendations: - START taking melatonin 3 mg 1 hour before bedtime for REM sleep disorder. Follow up with PCP regarding increasing the dosage of this medication (max dose 18 mg). - Follow up with PCP for diabetes management. - Follow up with rheumatology for rheumatoid arthritis management. TEST RESULTS PENDING AT DISCHARGE Pending Labs Order Current Status Cytochrome P450 2C19 Genotype, Varies In process DETAILS OF HOSPITAL STAY REASON FOR ADMISSION Non-ST Elevation Myocardial Infarction (HCC) HOSPITAL COURSE Background Ms. Marcial Adams is a 76 y.o. female with CAD s/p BRITTANY to the [facility] who presents with chest pain and rising troponinemia concerning for NSTEMI. Her medical comorbidities include hypertension, hyperlipidemia, CAD s/p BRITTANY to [facility] (2014), T2DM (last A1c 8.6% in 01/2021), obesity (BMI 33), CKD stage IIIB (baseline creatinine 1.5-1.6 mg/dL), gout, rheumatoid arthritis (on leflunomide and abatacept), hypothyroidism (on replacement therapy), osteoporosis, iron deficiency anemia (on oral replacement), and anxiety. Prior to Admission The morning of 01/12 she had an episode of substernal chest pain without radiation while at rest. She took two sublingual nitroglycerin with improvement. The pain recurred mid morning and she took a third nitroglycerin. The pain improved but did not resolve. There was associated dyspnea without radiation, diaphoresis, nausea, or emesis. As she had taken three nitro, she presented to her local ED for further assessment. ED Course In the ED, she was hypertensive (BP 154/77) but otherwise stable. Laboratory workup was notable for normocytic anemia (Hgb 10.0, MCV 92.4), baseline elevated creatinine (Cr 1.54 mg/dL), and mild hyperglycemia (BG 239). Troponins were elevated and rising from 14 to 21 to 47 over six hours. ECG showed NSR with nonspecific ST and T-wave abnormalities that were unchanged from prior. CXR was unremarkable.She was loaded with aspirin 324 mg, clopidogrel 600 mg, and started on IV heparin prior to admissionto Cardiology for further management. Hospital Course She was maintained on aspirin, clopidogrel, heparin IV, and was started on metoprolol tartrate whileawaiting coronary angiography. TTE results were pending at time of discharge. Cardiac catheterization revealed 95% obstruction of mid- LAD mainly distal to the stent placed in 2014. One BRITTANY was placed with successful revascularization. All other coronary arteries were normal. Patient endorsed history of dream reenactment related to lisinopril and metoprolol. 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 Started melatonin 3 mg for this. In light of her CAD, she would likely benefit more from continuing metoprolol (tolerated while hospitalized) and restarting ACEi/ARB for GDMT. Recommend losartan to avoid any issues with lisinopril, once her KAIT has resolved. Patient also has had history of intolerance to statin medication. Referred to [facility] for PCSK9. Disposition The patient was discharged to 01/14 on home in improved condition. They should follow up with Dr. Currie on 01/22 regarding management of CAD. MEDICATIONS CHANGED DURING THIS HOSPITAL STAY Medications stopped: none Medications changed: none Medications added: metoprolol tartrate, aspirin, melatonin CONDITION AT DISCHARGE improved RTS DEVELOPER documented in this encounter Discharge Instructions Discharge InstructionsAndrea Barros M.D. - 01/14/2022 7:59 AM CST You were discharged from the RST CARD 2 Service (Cardiology 2 Team). Please identify this service name if you call with questions after hospitalization. Cardiology recommendations: - You have been enrolled in the [facility] research trial regarding management of patients after coronarystent placement. Genetic testing has been obtained this hospitalization, and you will be contacted about these results. Per this trial, please START taking aspirin 81 mg daily and Plavix 75 mg daily until you are contacted about changing these medications. If you have any questions, please call [facility] and ask for Dr. Alexander. - START taking metoprolol 12.5 mg twice daily for treatment of coronary artery disease. - Follow up with Cardiology on 01/22 for management of coronary artery disease. They will discuss with you about starting an ACEi/ARB (lisinopril or losartan). - You will be contacted to see Cardiovascular [facility] for cholesterol management (PCSK9 medication). General recommendations: - START taking melatonin 3 mg 1 hour before bedtime for REM sleep disorder. Follow up with your PCP regarding increasing the dosage of this medication (max dose 18 mg). - Follow up with PCP for diabetes management. - Follow up with rheumatology for rheumatoid arthritis management. RTS DEVELOPER AttachmentsThe following attachments cannot be sent through Care Everywhere. Aspirin (By mouth) (Brazilian)Melatonin (By mouth) (Brazilian)Metoprolol (By mouth) (Brazilian)documented in this encounter Medications at Time of Discharge Medication Sig Dispensed Refills Start Date End Date abatacept (ORENCIA) 25 Infuse 750 mg into a 0 mg/mL injection venous catheter every 30 (thirty) days. allopurinoL (ZYLOPRIM) Take 200 mg by mouth 0 08/2021 100 mg tablet daily. ALPRAZolam (XANAX) 0.5 Take 1 tablet by mouth 0 0 04/05/2015 mg tablet every 8 (eight) hours as needed for anxiety. BASAGLAR KWIKPEN U-100 Inject 22 Units under 0 INSULIN 100 unit/mL (3 the skin every mL) injection morning. blood sugar diagnostic 0 06/30/2018 (Accu-Chek Alison Plus test strp) strips calcium Chew. 0 carbonate-vitamin D3 600 mg-10 mcg (400 unit) tablet,chewable clopidogreL (PLAVIX) 75 Take 75 mg by mouth 0 mg tablet daily. Dexcom G6 Musical String Maker misc See Admin 0 11/15/2021 Instructions. furosemide (LASIX) 20 Take 0.5 tablets (10 30 tablet 0 11/1712/10/2022 mg tabletIndications: mg total) by mouth as Ischemic Heart Chronic directed. Take 0.5 Disease, Coronary Stent tablet as needed for Status Post, Pain Chest swelling and shortness Atypical, Edema of breath. leflunomide (ARAVA) 20 Take 20 mg by mouth 0 mg tablet daily. levothyroxine Take 25 mcg by mouth 0 06/23/2018 (SYNTHROID, LEVOTHROID) daily. 75 mcg tablet melatonin 3 mg tablet Take 1 tablet (3 mg 30 tablet 2 01/14 total) by mouth at bedtime. metFORMIN (GLUCOPHAGE) Take 1 tablet (500 mg 90 tablet 3 06/26/2022 500 mg tablet total) by mouth daily with breakfast. Taking only 1 tablet daily metoprolol tartrate Take 0.5 tablets (12.5 30 tablet 2 12/18 (LOPRESSOR) 25 mg mg total) by mouth 2 tablet (two) times a day. nitroglycerin PLACE 1 TABLET UNDER 25 tablet 3 02/20/2021 (NITROSTAT) 0.4 mg SL THE TONGUE EVERY 5 tablet MINUTES IF NEEDED FOR UP TO 3 TIMES, IF NO RELIEF CALL 911 pantoprazole (PROTONIX) Take 40 mg by mouth 0 40 mg EC tablet every morning before breakfast. aspirin [address] tablet Take 1 tablet (81 mg 30 tablet 2 01/15/2022 total) by mouth daily. Antiplatelet per [facility] Trial. Please see Dr. Alexander's note dated 01/14/2022 for further details documented as of this encounter Progress Notes Troy Jackson M.D., Ph.D. - 01/14/2022 11:47 AM CST HISTORY OF PRESENT ILLNESS I have seen and examined , and discussed their care with the hospital team. I have read the hospital service's note and agree with the documented findings and plan of care ASSESSMENT / PLAN #1 Diabetes Mellitus Type 2 ([facility]) #2 Coronary Stent Status Post #3 Osteoporosis #4 Hypertensive Chronic Kidney Disease (CKD) Stage 3b Glomerular Filtration Rate (GFR) 30 To 44 ([facility]) #5 Gout #6 Chronic Kidney Disease (CKD), Stage 3b Glomerular Filtration Rate (GFR) 30 To 44 ([facility]) #7 Atherosclerotic Heart Disease [place] Coronary Artery With Other Forms Angina Pectoris (Stable Angina/Angina Of Exertion) ([facility]) #8 Arthritis Rheumatoid ([facility]) #9 Anxiety Ms. Adams is status post a stent to her LAD, stable ready for hospital discharge Troy Jackson M.D., Ph.D. 01/14/2022 RTS DEVELOPER Dank Gastelum M.A., R.N. - 01/14/2022 9:29 AM CST Attempted to meet with patient, but unavailable. Will attempt to see again later. Andrea Andrade M.D. - 01/13/2022 1:30 PM CST CARDIOLOGY 2 SERVICE PROGRESS NOTE REASON FOR ADMISSION: NSTEMI ADMISSION DATE: 01/12 SUBJECTIVE Ms. Adams was seen and examined on morning rounds. Overnight, there were no acute events. I have reviewed the current medication list. OBJECTIVE TELEMETRY INTAKE/OUTPUT: Past 24 hours: Intake/Output Summary (Last 24 hours) at 01/13/2022 1343 Last data filed at 01/13/2022 1200 Gross per 24 hour Intake 125.7 ml Output 850 ml Net -724.3 ml Wt Readings from Last 6 Encounters: 01/13/22 78.1 kg 01/12/22 80.2 kg 11/13/21 80.5 kg 06/26/21 82.2 kg 08/01/20 82.8 kg 07/25/20 83 kg PHYSICAL EXAMINATION: VITAL SIGNS: Temperature: [36.3 ??C-37 ??C] 36.9 ??C Heart Rate: [63-103] 73 Resp Rate: [13-23] 21 Blood Pressure: (107-178)/(66-88) 134/76 SpO2: [93 %-100 %] 98 % Height: [156 cm] 156 cm Weight: [77.8 kg-78.1 kg] 78.1 kg BSA (Calculated - sq m): [1.83 sq meters] 1.83 sq meters BMI (Calculated): [32 kg/m??-32.1 kg/m??] 32.1 kg/m?? Pulse Rate: [60-103] 73 Wt Readings from Last 3 Encounters: 01/13/22 78.1 kg 01/12/22 80.2 kg 11/13/21 80.5 kg Body mass index is 32.09 kg/m??. GEN: Well-appearing female in no acute distress. HEENT: Moist mucous membranes. CARDS: Regular rate and rhythm, holosystolic murmur. JVP within normal limits. No hepatojugular reflux. Minimal edema of the lower extremity bilaterally. PULM: Clear to auscultation bilaterally. ABD: Soft. Non-distended, nontender to palpation. INTEG: No visible rashes or skin lesions. MSK: No joint contractures or deformities. PV: Warm, well-perfused. NEURO: Grossly non-focal. Moves all extremities spontaneously. PSYCH: Appropriate, cooperative. DIAGNOSTICS: Results from last 7 days Lab Units 01/13/22 0451 01/12/22 0910 WBC x10(9)/L 8.7 9.0 HEMOGLOBIN g/dL 9.8* 10.0* HEMATOCRIT % 32.1* 31.5* PLATELETS AUTO x10(9)/L 199 185 Results from last 7 days Lab Units 01/13/22 0451 01/12/22 0910 SODIUM P mmol/L -- 139 SODIUM mmol/L 144 -- CREATININE mg/dL 1.56* 1.54* ESTIMATED GFR EGFR mL/min/BSA 34* 35* BUN P mg/dL -- 27* BUN mg/dL 27* -- CHLORIDE P mmol/L -- 106 CHLORIDE mmol/L 109* -- MAGNESIUM mg/dL 1.9 -- Results from last 7 days Lab Units 01/13/22 0451 01/13/22 0450 TRPS TROPONIN T ng/L -- 107* NT PRO BNP pg/mL 1630* -- Lab Results Component Value Date CHOL 245 (H) 01/13/2022 TRIG 346 (H) 01/13/2022 HDL 46 (L) 01/13/2022 LDLCALC 136 (H) 01/13/2022 Results from last 7 days Lab Units 01/13/22 0451 ALBUMIN g/dL 3.8 IMAGING: Echo Transthoracic (TTE) (Results Pending) Cardiac Catheterization (Results Pending) ASSESSMENT / PLAN Marcial Adams is a 76 y.o. female presenting for chest pain in the setting of rising troponin.She has a medical history significant for ischemic heart disease w/ PCI to the LAD in 2014 on Plavixmonotherapy, DMII w/ HbA1c of 8.6%, rheumatoid arthritis on leflunomide, HLD on no statin, HTN, chronic stable dyspnea on exertion, anemia with gastritis on upper endoscopy, vertigo, CKD stage 3, gout,and anxiety. Clinical presentation consistent with ACS (unstable angina -> NSTEMI). No ST changes on EKG, troponins elevated to max 107. Patient was ASA and Plavix loaded, started on heparin drip. Plan for coronary angiogram today. Metoprolol started as patient report of vivid nightmares as a potential side effect seems more like REM sleep disorder; these symptoms also continued after patient discontinued BB in 2018. We will also consider PCSK9 in setting of statin- related myopathy and address her recorded allergy of lisinopril for optimal GDMT. Plan for today: - Coronary angiogram today - TTE (last done 2017, EF 65%) - GDMT #1 NSTEMI #2 CAD w/ prior PCI to mid LAD (2014) #3 HLD - Aspirin 81 mg daily, clopidogrel 75 mg daily, and moderate-intensity heparin IV. - Metoprolol tartrate 12.5 mg PO BID - LDL 136, A1c 8.8 #4 T2DM, uncontrolled (A1c 8.8%) Takes glargine 22U nightly at home, no mealtime correction - Hold metformin 500mg daily, glipizide 10mg daily, farxiga 5mg daily - Has not taken Trulicity in past two weeks - Start 10U glargine tonight in anticipation for NPO in AM, 11U glargine nightly afterwards with mild SSI correction #5 Rheumatoid arthritis - Continue leflunomide 20mg #6 Anxiety - Holding alprazolam 0.5mg tid prn #7 Query REM sleep disorder Reports having vivid nightmares and dream re-enactment for several years, leading to striking her in her sleep and requiring their beds to be . Early notes in 2018 discuss possible contribution of nightmares by metoprolol and thus discontinued the medication; symptoms appear to have pe rsistent despite. Suspect this is more consistent with REM sleep behavior disorder - Consider neurology outpatient evaluation VTE: N/A due to therapeutic anti-coagulation GI: Pantoprazole Code Status: Full Code Disposition: Home - self care Andrea Barros MD PGY 1 Department of Internal Medicine [place], [place] RTS DEVELOPER Kishan Basilio Pharm.D., R.Ph. - 01/13/2022 12:42 PM CST Images from the original note were not included. Admission Medication History Note Adherence issues: No concerns Medication list source: Patient and Pharmacy or dispense records Medication related information: - Pt has reportedly tried at least 3 statins that all resulted in intolerable diarrhea. Pt does notwish to trial alternative statins. Prior to Admission Medications Med List Status: Pharmacy Complete Set By: Kishan Basilio Pharm.D., R.Ph. at 01/13/2022 12:42 PM Taking? Last Dose Informant Start Date End Date LT abatacept (ORENCIA) 25 mg/mL injection Past Week -- -- -- Infuse 750 mg into a venous catheter every 30 (thirty) days. allopurinoL (ZYLOPRIM) 100 mg tablet 01/12/2022 -- 10/23/21 -- Take 100 mg by mouth daily. Takes 2 tabs ALPRAZolam (XANAX) 0.5 mg tablet -- -- 04/05/15 -- Take 1 tablet by mouth every 8 (eight) hours as needed for anxiety. BASAGLAR KWIKPEN U-100 INSULIN 100 unit/mL (3 mL) injection 01/12/2022 Self 07/17/18 -- Inject 22 Units under the skin every morning. blood sugar diagnostic (Accu-Chek Alison Plus test strp) strips -- -- 06/30/18 -- calcium carbonate-vitamin D3 600 mg-10 mcg (400 unit) tablet,chewable -- Self -- -- Chew. clopidogreL (PLAVIX) 75 mg tablet 01/11/2022 -- 08/08/21 -- Dexcom G6 Musical String Maker [facility] -- -- 11/15/21 -- See Admin Instructions. furosemide (LASIX) 20 mg tablet -- -- 12/10/21 12/10/22 Take 0.5 tablets (10 mg total) by mouth as directed. Take 0.5 tablet as needed for swelling and shortness of breath. leflunomide (ARAVA) 20 mg tablet 01/12/2022 Self -- -- Take 20 mg by mouth daily. levothyroxine (SYNTHROID, LEVOTHROID) 75 mcg tablet 01/12/2022 -- 06/23/18 -- Take 25 mcg by mouth daily. metFORMIN (GLUCOPHAGE) 500 mg tablet 01/12/2022 -- 06/26/21 06/26/22 Take 1 tablet (500 mg total) by mouth daily with breakfast. Taking only 1 tablet daily Notes: Documenting patient reported changes nitroglycerin (NITROSTAT) 0.4 mg SL tablet 01/12/2022 -- 02/20/21 -- PLACE 1 TABLET UNDER THE TONGUE EVERY 5 MINUTES IF NEEDED FOR UP TO 3 TIMES, IF NO RELIEF CALL 911 pantoprazole (PROTONIX) 40 mg EC tablet 01/12/2022 -- 12/16/21 -- Take 40 mg by mouth. RTS DEVELOPER Kishan Basilio Pharm.D., R.Ph. - 01/13/2022 7:42 AM CST Pharmacist Progress Note Reason for admission: Chest pain with rising troponins PMH: Ischemic heart disease w/ PCI to LAD (2014) Past Medical History: Diagnosis Date Abnormal Stress Test Anxiety Generalized Disorder Cataract Coronary Artery Disease [place] Diabetes Mellitus Type 2 (HCC) Hyperlipidemia Hypertension NOS Hypothyroidism Osteoarthritis Osteoporosis Osteopenia noted on bone density scan on 04/28/12 Palpitations Holter monitor completed: results concluded four events were transmitted. Event 1 was sinus rhythm.The heart rate varied from 75 to 83 bpm. No ectopy was present. Events 2, 3, and 4 had no useable data. Poliomyelitis Myelitis Personal History Rosacea Shortness Of Breath Stone Kidney Transient Ischemic Attack Uncertain diagnosis OBJECTIVE Review of Systems CV: CAD (Clopidogrel 75 mg) Endo: Gout (Allopurinol 100 mg); HypoThy(Levothyroxine 25 mcg) GI: GERD (Pantoprazole 40 mg) RA: Leflunomide 20 mg, Abatacept 750 mg PPX: -- Medication Reconciliation: Held: -- Changed: -- New: ASA, Heparin gtt, Metoprolol ASSESSMENT / PLAN Elevated Troponin with hx of CAD s/p PCI (2014) Continuing ASA, clopidogrel, and heparin gtt w/ plans for angio and TTE today Pt reportedly had nightmares on metoprolol, but nightmares likely not d/t metoprolol as they persisted well after discontinuation. Will retrial metoprolol this admission If nightmares recur or pt would prefer alternative, could consider bisoprolol, which has less BBB penetration Hyperlipidemia Pt has reportedly experienced diarrhea with several statins and does not wish to retrial statins. May consider PCSK9 therapy +/- ezetimibe at this time as LDL is above goal. Kishan Basilio Pharm.D., R.Ph. RTS DEVELOPER documented in this encounter H&P Notes Troy Jackson M.D., Ph.D. - 01/13/2022 11:34 AM CST HISTORY OF PRESENT ILLNESS I have seen and examined , and discussed their care with the hospital team. I have read the hospital service's note and agree with the documented findings and plan of care ASSESSMENT / PLAN #1 Diabetes Mellitus Type 2 (HCC) #2 Anemia #3 Coronary Stent Status Post #4 Osteoporosis #5 Hypertensive Chronic Kidney Disease (CKD) Stage 3b Glomerular Filtration Rate (GFR) 30 To 44 (HCC) #6 Gout #7 Chronic Kidney Disease (CKD), Stage 3b Glomerular Filtration Rate (GFR) 30 To 44 (HCC) #8 Atherosclerotic Heart Disease [place] Coronary Artery With Other Forms Angina Pectoris (Stable Angina/Angina Of Exertion) (HCC) #9 Arthritis Rheumatoid (HCC) #10 Anxiety #11 Elevated Troponin #12 Non-ST Elevation Myocardial Infarction (HCC) Ms. Adams is 76-year-old woman with known coronary artery disease status post a stent to her LAD in 2015. She is had a syndrome of progressive exertional angina to unstable angina over the last severaldays. She ruled in for non ST elevation myocardial infarction agree with the plan for angiography later today. She is been intolerant to multiple statins, and I think we should move to a PCSK9 inhibitor Troy Jackson M.D., Ph.D. 01/13/2022 John Strickland M.D. - 01/12/2022 9:06 PM CST Images from the original note were not included. CARDIOLOGY 2 ADMISSION NOTE SUBJECTIVE CHIEF COMPLAINT: Chest pain REASON FOR ADMISSION: Troponinemia HISTORY OF PRESENT ILLNESS: Marcial Adasm is a 76 y.o. female presenting for chest pain in the setting of rising troponin.She has a medical history significant for ischemic heart disease w/ PCI to the LAD in 2014 on Plavixmonotherapy, DMII w/ HbA1c of 8.6%, rheumatoid arthritis on leflunomide, HLD on no statin, HTN, chronic stable dyspnea on exertion, anemia with gastritis on upper endoscopy, vertigo, CKD stage 3, gout,and anxiety. She reports exhibiting exercise intolerance worsening over the course of several years. This has been present since 2018 and she reports has been worsening in the past few months. She has been evaluated by cardiology for these symptoms and has been seen to be associated with deconditioning rather thanangina or ischemic heart disease. In the summer of 2021, she reports that she began to develop shoulder soreness reminiscent of her anginal symptoms prior to her coronary angiogram and stent placement back in 2014. She reports the painpresents after exertion and resolved with about 5-10 minutes of rest. In October of 2021, she has developed a new type of episodic atypical chest discomfort. These symptoms often begin at rest, and present as a discomfort across the shoulders that radiated to the neck and subsequently through the jaw. These symptoms resolve with time (approximately 1 hour) and are occassionally responsive to nitroglycerin. Activity does not provoke or worsen these symptoms. She reports she has episodes of chest pain usually daily. In addition to seeing cardiology, she has also visited her PCP and ENT. On 12/16, her PCP switched her omeprazole to pantoprazole and referred to ENT. She saw ENT the following day and was felt that symptoms were related to reflux. The patient reports improvement in symptoms to treatment change. She also had had an upper endoscopy recently and showed gastritis. Her aspirin was transitioned to Plavix.She has been maintained on a PPI. A nuclear med stress test and resting echo were ordered, which arescheduled for this . However, this morning at 5am, she developed intermittent diffuse anterior chest pain while lying in bed. Pain resolved without intervention. Pain returned after she awakened and was up and about at home. She took 3 nitro with incomplete relief in pain. She reports that this pain was different this morning than with previous episodes as the pain did not radiate to the neck, jaw, or arm. The patient states pain today is different from previous pain as it does not radiate. She denies any fevers, chills, sweats, headache, neck pain, cough/URI symptoms, shortness of breath, sputum, wheezing, abdominal pain, nausea, vomiting, diarrhea, urinary symptoms, rash or skin changes, leg pain, or increased edema. She presented to the outside ED where she was found to be in normal sinus rhythm with an ECG showingno ST elevations or ischemic changes. She was hyperglycemic to 239 and her trop trend tracked out to14-->21-->47. Her chest pain resolved but due to elevating troponins, the ED team was concerned about ACS. She was administered 324mg aspirin, 600mg plavix, 0.5mv IV ativan, and transferred to [facility] for further evaluation. 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 -Never smoker, no etoh use, no recreational drug use CARDIAC HISTORY: - CV Risk Factors: HTN, hypercholesterolemia, DM, obesity (BMI >30 kg/m??), atherosclerotic disease: PCI - Last Cardiac Catheterization: 01/26/2015 - Last TTE/MOHIT: 12/24/2017 - Last Cardiac Exercise Stress Test/Pharmacological Stress Test: 01/08/2015 Present in document viewer but no interpretation available HOME MEDICATIONS: Current Facility-Administered Medications on File Prior to Encounter Medication Dose Route Frequency Provider Last Rate Last Admin [COMPLETED] aspirin chewable tablet 324 mg 324 mg oral Once Reu, Martha Anderson, P.A.-C. 324 mg at 01/12/22 0927 [COMPLETED] clopidogreL tablet 600 mg (PLAVIX) 600 mg oral Once ReuMartha, P.A.-C. 600 mg at 01/12/22 1622 [COMPLETED] LORazepam injection 0.5 mg (ATIVAN) 0.5 mg intravenous Once ReuMartha, P.A.-C. 0.5 mg at 01/12/22 1719 [DISCONTINUED] heparin (porcine) 1,000 unit/mL injection 2,400 Units 30 Units/kg (Dosing Weight) intravenous PRN ReuMartha, P.A.-C. [DISCONTINUED] heparin (porcine) 1,000 unit/mL injection 4,800 Units 60 Units/kg (Dosing Weight) intravenous PRN ReuMartha, P.A.-C. [DISCONTINUED] heparin (porcine) 100 Units/mL in NaCl 0.45% 250 mL infusion 0- 40 Units/kg/hr (Dosing Weight) intravenous Continuous ReuMartha P.A.-C. 9.62 mL/hr at 01/12/22 1618 12 Units/kg/hr at103/14/21 1618 Current Outpatient Medications on File Prior to Encounter Medication Sig Dispense Refill abatacept in NaCl 0.9% IVPB Infuse into a venous catheter. allopurinoL (ZYLOPRIM) 100 mg tablet Take 100 mg by mouth daily. Takes 2 tabs ALPRAZolam (XANAX) 0.5 mg tablet Take 1 tablet by mouth every 8 (eight) hours as needed for anxiety. BASAGLMARIANELA CALDWELL U-100 INSULIN 100 unit/mL (3 mL) injection 19 units, in the AM blood sugar diagnostic (Accu-Chek Alison Plus test strp) strips blood sugar diagnostic strips USE DIRECTED TO TEST 1 TO 3 TIMES DAILY 100 each 10 calcium carbonate-vitamin D3 600 mg-10 mcg (400 unit) tablet,chewable Chew. clindamycin (CLINDAGEL) 1 % gel clopidogreL (PLAVIX) 75 mg tablet dapagliflozin (FARXIGA) 5 mg tablet Take 1 tablet (5 mg total) by mouth daily. 30 tablet 11 dulaglutide (Trulicity) 0.75 mg/0.5 mL injection INJECT 0.75 MG UNDER THE SKIN ONCE WEEKLY ergocalciferol (DRISDOL) 50,000 Unit capsule Take 50,000 Units by mouth once a week. ferrous gluconate (FERGON) 324 mg (38 mg iron) tablet Take 38 mg by mouth daily. furosemide (LASIX) 20 mg tablet Take 0.5 tablets (10 mg total) by mouth as directed. Take 0.5 tablet as needed for swelling and shortness of breath. 30 tablet 0 glipiZIDE (for_GLUCOTROL) 5 mg tablet Take 10 mg by mouth every morning before breakfast. leflunomide (ARAVA) 20 mg tablet Take 20 mg by mouth daily. levothyroxine (SYNTHROID, LEVOTHROID) 75 mcg tablet Take 25 mcg by mouth daily. metFORMIN (GLUCOPHAGE) 500 mg tablet Take 1 tablet (500 mg total) by mouth daily with breakfast. Taking only 1 tablet daily 90 tablet 3 nitroglycerin (NITROSTAT) 0.[address] 1 TABLET UNDER THE TONGUE EVERY 5 MINUTES IF NEEDED FOR UP TO 3 TIMES, IF NO RELIEF CALL 911 25 tablet 3 omeprazole (PriLOSEC) [address] capsule pantoprazole (PROTONIX) 40 mg EC tablet Take 40 mg by mouth. UNABLE TO FIND Med Name: Mihaela REVIEW OF SYSTEMS: See HPI. Negative except as noted in the HPI. OBJECTIVE VITAL SIGNS: Temperature: [36.3 ??C-37 ??C] 36.9 ??C Heart Rate: [74-103] 89 Resp Rate: [13-23] 20 Blood Pressure: (137-178)/(67-88) 137/74 SpO2: [96 %-100 %] 100 % Height: [156 cm] 156 cm Weight: [80.2 kg] 80.2 kg Pulse Rate: [74-103] 90 PHYSICAL EXAM: GEN: Well-appearing female in no acute distress. HEENT: Moist mucous membranes. CARDS: Regular rate and rhythm, no murmurs. JVP within normal limits. No lower extremity edema bilaterally. PULM: Clear to auscultation bilaterally. ABD: Non-distended, nontender to palpation. INTEG: No visible rashes or skin lesions. MSK: No joint contractures or deformities. PV: Warm, well-perfused. Palpable pulses in bilateral lower extremities. NEURO: Moves all extremities spontaneously. PSYCH: Appropriate, cooperative. LABS: Results from last 7 days Lab Units 01/12/22 0910 WBC x10(9)/L 9.0 HEMOGLOBIN g/dL 10.0* HEMATOCRIT % 31.5* PLATELETS AUTO x10(9)/L 185 Results from last 7 days Lab Units 01/12/22 0910 SODIUM P mmol/L 139 CREATININE mg/dL 1.54* ESTIMATED GFR EGFR mL/min/BSA 35* BUN P mg/dL 27* CHLORIDE P mmol/L 106 Lab Results Component Value Date CHOL 237 (H) 02/14/2021 TRIG 285 (H) 02/14/2021 HDL 44 02/14/2021 LDLCALC 136 (H) 02/14/2021 IMAGING: DX Chest AP or PA and Lateral 2 Views Result Date: 01/12/2022 Impression: Comparison 10/24/2021. Cardiac silhouette is normal in size. Prominent left epicardial fatpad. No focal consolidation to suggest pneumonia. No significant pleural effusion or pulmonary edema. There is no pneumothorax. ASSESSMENT / PLAN Marcial Adams is a 76 y.o. female presenting for chest pain in the setting of rising troponin.She has a medical history significant for ischemic heart disease w/ PCI to the LAD in 2014 on Plavixmonotherapy, DMII w/ HbA1c of 8.6%, rheumatoid arthritis on leflunomide, HLD on no statin, HTN, chronic stable dyspnea on exertion, anemia with gastritis on upper endoscopy, vertigo, CKD stage 3, gout,and anxiety. Although she has had intermittent chest pain at rest consistent with atypical angina, she has also had anginal episodes of shoulder soreness similar to her initial presentation of ischemic heart disease in 2015. With her rising troponins and her story of chest pain with a new character, along with past history of ACS requiring stent in mid LAD, we have a strong suspicion of ACS. Patient has been aspirin and Plavix loaded, and started on heparin drip. laboratory miller request is orderedfor the AM, along with TTE. Metoprolol has been started despite allergy of vivid nightmares and patient is amenable to trial medication. 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 She is not taking any cindy inhibitor or arb for her blood pressure, but her pressure is137/74 as of writing this note. We will plan to repeat lipids and HbA1c in the AM along with morninglabs and consider cath in the AM. # Elevated Troponin # Stable angina # Prior PCI to mid LAD (2014) #HLD - Aspirin 81 mg daily, clopidogrel 75 mg daily, and moderate-intensity heparin IV. - Start metoprolol tartrate 12.5 mg PO BID tonight. - Trend troponins to peak (next check with morning labs). - Cardiac catheterization with possible stent placement tomorrow. - NPO at midnight for potential cardiac catheterization. - Routine transthoracic echocardiogram ordered. - Lipid panel, hba1c pending AM labs #DMII -Home glargine 22u nightly, no mealtime correction -Hold metformin 500mg daily, glipizide 10mg daily, farxiga 5mg daily -Has not taken Trulicity in past two weeks -Last HbA1c 8.6% -Start 10u glargine tonight in anticipation for NPO in AM, 11u glargine nightly afterwards with mildSSI correction #Rheumatoid arthritis -Continue leflunomide 20mg #GERD -Continue protonix 40mg #Gout -Continue allopurinol 100mg daily #Anxiety -Hold alprazolam 0.5mg tid prn #Hypothyroidism -Continue levothyroxine 75mg daily #Vivid nightmares #Dream Re-enactment -Reports having vivid nightmares and dream re-enactment for several years, leading to striking her in her sleep and requiring their beds to be . -Early notes in 2018 discuss possible contribution of nightmares by metoprolol and thus discontinuedthe medication; she is willing to attempt resuming metoprolol tonight. -Suspect this is more consistent with REM sleep behavior disorder -Consider neurology outpatient evaluation Diet: NPO at midnight Tubes/lines: PIV VTE prophylaxis: therapeutic anticoagulation Code status: Full Code Stable to discharge criteria (not met): Tests/procedures/consults RTS DEVELOPER Petey Amato M.D., Ph.D. - 01/12/2022 9:06 PM CST Images from the original note were not included. ADMISSION HISTORY & PHYSICAL EXAM RST Cardiology 2 Service CHIEF COMPLAINT Chest pain HISTORY OF PRESENT ILLNESS Ms. Marcial Adams is a 76 y.o. female with CAD s/p BRITTANY to the [facility] who presents with chest pain and rising troponinemia concerning for NSTEMI. Her medical comorbidities include hypertension, hyperlipidemia, CAD s/p BRITTANY to [facility] (2014), T2DM (last A1c 8.6% in 01/2021), obesity (BMI 33), CKD stage IIIB (baseline creatinine 1.5-1.6 mg/dL), gout, rheumatoid arthritis (on leflunomide and abatacept), hypothyroidism (on replacement therapy), osteoporosis, iron deficiency anemia (on oral replacement), and anxiety. Briefly, she has had exertional angina this past summer. She describes right shoulder pain that worsens with exertion and resolves within a few minutes of rest. The shoulder pain resembles that which she experienced prior to her coronary stenting in 2014. This morning, she had an episode of substernal chest pain without radiation while at rest. She took two sublingual nitroglycerin with improvement. Unfortunately, the pain recurred in the mid morning, and she took a third nitroglycerin. The pain improved but did not resolve. She endorses mild associated dyspnea, but denies any radiation, diaphoresis, nausea, or emesis. As she had now taken three nitro, she presented to her local ED for further assessment. In the ED, she was hypertensive (BP 154/77) but otherwise stable. Laboratory workup was notable for normocytic anemia (Hgb 10.0, MCV 92.4), baseline elevated creatinine (Cr 1.54 mg/dL), and mild hyperglycemia (BG 239). Troponins were elevated and rising from 14 to 21 to 47 over six hours. ECG showed NSR with nonspecific ST and T-wave abnormalities that were unchanged from prior. CXR was unremarkable.She was loaded with aspirin 324 mg, clopidogrel 600 mg, and started on IV heparin prior to admissionto Cardiology for further management. Upon arrival, she was hemodynamically stable and denied any residual chest pain. She provided the history above. Additionally, she has experienced worsening lower extremity edema over the past few months. Her primary provider started her on furosemide 10 mg daily, though she has not yet started takingthis. She denies orthopnea and paroxysmal nocturnal dyspnea, though she does describe vivid dream enactment concerning for early REM behavior disorder. REVIEW OF SYSTEMS Pertinent items are noted in HPI; all other review of systems was negative. PAST MEDICAL HISTORY I have reviewed and updated the past medical history, past surgical history, family history, social history, and allergies as appropriate. MEDICATIONS Current Outpatient Medications Medication Instructions abatacept in NaCl 0.9% IVPB intravenous allopurinoL (ZYLOPRIM) 100 mg, oral, Daily, Takes 2 tabs ALPRAZolam (XANAX) 0.5 mg tablet 1 tablet, oral, Every 8 hours PRN PETERSONAGLMARIANELA CALDWELL U-100 INSULIN 100 unit/mL (3 mL) injection 19 units, in the AM blood sugar diagnostic (Accu-Chek Alison Plus test strp) strips blood sugar diagnostic strips USE DIRECTED TO TEST 1 TO 3 TIMES DAILY calcium carbonate-vitamin D3 600 mg-10 mcg (400 unit) tablet,chewable oral clindamycin (CLINDAGEL) 1 % gel No dose, route, or frequency recorded. clopidogreL (PLAVIX) 75 mg tablet No dose, route, or frequency recorded. dapagliflozin (FARXIGA) 5 mg, oral, Daily Dexcom G6 Musical String Maker misc See admin instructions dulaglutide (Trulicity) 0.75 mg/0.5 mL injection INJECT 0.75 MG UNDER THE SKIN ONCE WEEKLY ergocalciferol (DRISDOL) 50,000 Units, oral, Weekly ferrous gluconate (FERGON) 38 mg, oral, Daily furosemide (LASIX) 10 mg, oral, As Directed, Take 0.5 tablet as needed for swelling and shortness of breath. glipiZIDE (GLUCOTROL) 10 mg, oral, Daily before breakfast leflunomide (ARAVA) 20 mg, oral, Daily levothyroxine (SYNTHROID, LEVOTHROID) 25 mcg, oral, Daily metFORMIN (GLUCOPHAGE) 500 mg, oral, Daily with breakfast, Taking only 1 tablet daily nitroglycerin (NITROSTAT) 0.[address] 1 TABLET UNDER THE TONGUE EVERY 5 MINUTES IF NEEDED FOR UP TO 3 TIMES, IF NO RELIEF CALL 911 omeprazole (PriLOSEC) [address] capsule No dose, route, or frequency recorded. pantoprazole (PROTONIX) 40 mg, oral triamcinolone (KENALOG) 0.1 % cream No dose, route, or frequency recorded. UNABLE TO FIND Med Name: [facility] VITALS BP 137/74 (BP Location: Right arm;Upper, Patient Position: Sitting) Pulse 90 Temp 36.9 ??C (Oral) Resp 20 Ht 156 cm SpO2 100% BMI 32.96 kg/m?? PHYSICAL EXAM GEN: Alert, interactive, well-nourished female, in no acute distress. EYES: No conjunctival icterus or injection. PULM: Clear to auscultation bilaterally. No cough. Breathing non-labored. CV: Regular rate and rhythm. No murmurs appreciated. No JVD. Trace peripheral edema. ABD: Soft, non-tender, non-distended. Normoactive bowel sounds. MSK: No tenderness to palpation over the anterior chest wall. Grossly full active ROM. Mobilizes well at side of bed. SKIN: No rashes, lesions, or purpura observed. NEURO: Cranial nerves, sensation, and strength grossly intact. PSYCH: Alert and oriented. Mood and affect congruent. No disorganization. LABORATORY RESULTS I have reviewed the relevant laboratory and diagnostic studies since presentation. PRIOR CARDIOLOGY RESULTS Last Electrocardiogram (01/12/2022) Last Echocardiogram (12/24/2017) Last CT Cardiac Aniogram (08/01/2020) 1. Scattered calcific plaques in the LAD, LCx and RCA with associated minimal to mild luminal stenosis. Patent stent in the mid LAD. Suspected moderate stenosis immediately distal to the stent; CAD-RADS3/S. 2. Mild left atrial enlargement. Mild dilation of main pulmonary artery. Last Cardiac Catheterization (01/26/2015) Last Cardiac Stress Test (01/04/2015) IMAGING & ANCILLARY STUDIES DX Chest AP or PA and Lateral 2 Views Result Date: 01/12/2022 Impression: Comparison 10/24/2021. Cardiac silhouette is normal in size. Prominent left epicardial fatpad. No focal consolidation to suggest pneumonia. No significant pleural effusion or pulmonary edema. There is no pneumothorax. ASSESSMENT # NSTEMI type I with ALTAGRACIA score 120 and ANT score 5 # Coronary artery disease s/p BRITTANY to mLAD (2014) # Hypertension not currently on anti-hypertensive therapy # Hyperlipidemia with statin intolerance # T2DM with last A1c 8.6% in 01/2021 # CKD stage IIIB (baseline creatinine 1.5-1.6 mg/dL) # Rheumatoid arthritis on leflunomide and abatacept # Hypothyroidism on replacement therapy # Iron deficiency anemia on oral replacement # Anxiety Ms. Adams is a 76 y.o. female with HTN, HLD, CAD s/p BRITTANY to mLAD (2014), T2DM (A1c 8.6%), and obesity (BMI 33) who is admitted with chest pain and rising troponinemia consistent with NSTEMI. Her presentation is most consistent with NSTEMI on a background of stable angina. Given her multiplecardiovascular risk factors, will plan to continue the heparin infusion and anticipate cardiac catheterization within 24-48 hours. Will also obtain an updated transthoracic echocardiogram to assess forboth new RWMAs and to re-characterize her EF in the setting of worsening lower extremity edema. Willhold on starting her diuretic tonight given that she does not have symptomatic hypervolemia and willbe NPO at midnight. We will start metoprolol tartrate tonight given ACS. Notably, she has a documented allergy to metoprolol. Upon discussion, this is described as bad dreams which I suspect are her manifesting REM behavior disorder. We discussed that as her vivid dreams have continued even off of beta-rich therapy,that this is unlikely to be a true allergy. She was willing to resume metoprolol this evening. She has a similar allergy documented for lisinopril, and the discussion of ACEI/ARB therapy should also berevisited given untreated hypertension and comorbid diabetes. She does have a documented statin intolerance, and therefore we will defer starting high-dose statin tonight. Would recommend considerationof ezetimibe tomorrow. PLAN Aspirin 81 mg daily, clopidogrel 75 mg daily, and moderate-intensity heparin IV. Start metoprolol tartrate 12.5 mg PO BID tonight. Trend troponins to peak (next check with morning labs). Cardiac catheterization with possible stent placement tomorrow. NPO at midnight for potential cardiac catheterization. Routine transthoracic echocardiogram ordered. Hold on diuresis tonight she is clinically stable and will be NPO. Hemoglobin A1c, lipid panel, and BNP with morning labs. Consider initiation of ezetimibe tomorrow given statin intolerance. Consider initiation of ACEI/ARB given hypertension and T2DM. Cardiac rehabilitation upon dismissal. DVT: Heparin IV Lines: PIV x 1 Diet: Regular (NPO at 24:00) Code: Full (discussed upon admission) Surrogate: Dispo: Home pending clinical course This is a supervisory note for Dr. Graves. Please refer to their documentation for additional details.The case will be staffed with the Cardiology 2 multi site leasing consultant, Dr. Jackson, within 24 hours. [place] Card[place] [phone] with any questions. Petey Amato M.D., Ph.D. Internal Medicine, PGY-3 RTS DEVELOPER documented in this encounter Consult Notes Mely Mary - 01/14/2022 10:16 AM CSTAssociated Order(s): IP CONSULT TO CARDIAC REHABILITATION Cardiac Rehabilitation Referral Reason for Visit: [facility] consultation for referral to cardiac rehabilitation. Liaison met with the patient/family to discuss cardiac rehabilitation referral. Patient/family was provided with progressive verbal and printed home-going exercise guidelines. Patient/family understands and agrees with the exercise guidelines. 1. Participation in a Phase II cardiac rehabilitation program is recommended. Patient was informed about what cardiac rehabilitation has to offer and why it is beneficial. The plan of care for the rehabilitation program consists of risk factor modification, monitored and supervised exercise and assistance in the recovery process with ongoing education and support. Patient is interested in attending acardiac rehabilitation program. 2. Eligibility: PCI 3. Exceptions/exclusions: None. 4. Referral: Patient agreed with referral to a cardiac rehabilitation program. Please see discharge order and/or letter for program details. 5. Appropriate referral information will be sent to the receiving cardiac rehabilitation program as applicable. Patient provided verbal authorization to send relevant materials to the cardiac rehab program. Patient referred to: [facility] [address] [place] [id number] Recommend that the patient check with insurance company to verify coverage of the cost of cardiac rehabilitation program visits. RTS DEVELOPER documented in this encounter Nursing Notes David Lacy R.N. - 01/14/2022 5:20 AM CST Shift Goals: Clinical Goals for the Shift: Patient will remain free of chest pain during shift Identify possible barriers to meeting goals/advancing plan of care: echo End of Shift Summary: Patient remained free of chest pain. R radial site remained WDL. VSS. Patient had a great night sleep. Plan for echo in the morning and possible discharge. No questions or concerns from patient. Problem: PAIN - ADULT Goal: PT VERBALIZES/DEMONSTRATES ADEQUATE COMFORT LEVEL OR BASELINE Outcome: Progressing Problem: KNOWLEDGE DEFICIT Goal: Patient/family/caregiver demonstrates understanding of disease process, treatment plan, medications, and discharge instructions Outcome: Progressing Problem: INFECTION - ADULT Goal: Absence of infection during hospitalization Outcome: Progressing Problem: SKIN/TISSUE INTEGRITY Goal: Skin/Tissue integrity maintained or improved Outcome: Progressing Problem: SAFETY ADULT Goal: Maintain a safe environment Outcome: Progressing RTS DEVELOPER HostagerRadha R.N. - 01/12/2022 11:44 PM CST Shift Goals: Clinical Goals for the Shift: patient will remain free from chest pain throughout shift Identify possible barriers to meeting goals/advancing plan of care: NSTEMI End of Shift Summary: Patient remained free from chest pain and therefore met goal of shift. Heparininitialed at 12 units/kg/hr. VSS. Admission questions in progress. Plan is to be NPO at midnight forangiogram tomorrow. Problem: PAIN - ADULT Goal: PT VERBALIZES/DEMONSTRATES ADEQUATE COMFORT LEVEL OR BASELINE Outcome: Progressing Note: Patient reported no pain throughout shift Problem: SAFETY ADULT Goal: Maintain a safe environment Outcome: Progressing Note: Bed alarm on and call light within reach. Call before you fall discussed RTS DEVELOPER documented in this encounter OR Notes Brief Op Note - Tapan Barone M.B.B.S. - 01/13/2022 3:17 PM CST Images from the original note were not included. PATIENT: Marcial Adams : 1945 DATE OF SERVICE: 01/13/2022 Procedure: Coronary angiography. Successful PCI of mid LAD ISR with placement of 3.0 X 32 mm Synergy BRITTANY Implant Name Type Inv. Item Serial No. Supply Chain Engineer Lot No. LRB No. Used Action STNT SYNERGY XD DE [id number] - [id number] Cardiac Stent STNT SYNERGY XD DE [id number] Revee [id number] N/A 1 Implanted Operators: Lee Meyer M.B.B.SJairo Indication: NSTEMI Access Site(s): Right radial artery, 6 Occitan sheath(s). Removed at the end of the case with TR band placement for compression hemostasis. Complications: No Recommendations: -Aspirin 81mg daily indefinitely barring any complications -Clopidogrel 75 mg daily for 12 months as part of dual antiplatelet therapy from 01/13/2022 Please see multi site leasing consultant cath operative report for further information. This is available under Document Viewer as Diagnostic Report - Cath/EP. Code status: FULL, until time of discharge If clinical status changes, please contact the proceduralist to discuss reversal of code status. Suzanne MixonBJairoS. 01/13/22 RTS DEVELOPER documented in this encounter Miscellaneous Notes Hospital Course - Andrea Barros M.D. - 01/12/2022 11:17 PM CST Background Ms. Marcial Adams is a 76 y.o. female with CAD s/p BRITTANY to the [facility] who presents with chest pain and rising troponinemia concerning for NSTEMI. Her medical comorbidities include hypertension, hyperlipidemia, CAD s/p BRITTANY to [facility] (2014), T2DM (last A1c 8.6% in 01/2021), obesity (BMI 33), CKD stage IIIB (baseline creatinine 1.5-1.6 mg/dL), gout, rheumatoid arthritis (on leflunomide and abatacept), hypothyroidism (on replacement therapy), osteoporosis, iron deficiency anemia (on oral replacement), and anxiety. Prior to Admission The morning of 01/12 she had an episode of substernal chest pain without radiation while at rest. She took two sublingual nitroglycerin with improvement. The pain recurred mid morning and she took a third nitroglycerin. The pain improved but did not resolve. There was associated dyspnea without radiation, diaphoresis, nausea, or emesis. As she had taken three nitro, she presented to her local ED for further assessment. ED Course In the ED, she was hypertensive (BP 154/77) but otherwise stable. Laboratory workup was notable for normocytic anemia (Hgb 10.0, MCV 92.4), baseline elevated creatinine (Cr 1.54 mg/dL), and mild hyperglycemia (BG 239). Troponins were elevated and rising from 14 to 21 to 47 over six hours. ECG showed NSR with nonspecific ST and T-wave abnormalities that were unchanged from prior. CXR was unremarkable.She was loaded with aspirin 324 mg, clopidogrel 600 mg, and started on IV heparin prior to admissionto Cardiology for further management. Hospital Course She was maintained on aspirin, clopidogrel, heparin IV, and was started on metoprolol tartrate whileawaiting coronary angiography. TTE results were pending at time of discharge. Cardiac catheterization revealed 95% obstruction of mid- LAD mainly distal to the stent placed in 2014. One BRITTANY was placed with successful revascularization. All other coronary arteries were normal. Patient endorsed history of dream reenactment related to lisinopril and metoprolol. 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 Started melatonin 3 mg for this. In light of her CAD, she would likely benefit more from continuing metoprolol (tolerated while hospitalized) and restarting ACEi/ARB for GDMT. Recommend losartan to avoid any issues with lisinopril, once her KAIT has resolved. Patient also has had history of intolerance to statin medication. [facility] for PCSK9. Disposition The patient was discharged to 01/14 on home in improved condition. They should follow up with Dr. Currie on 01/22 regarding management of CAD. RTS DEVELOPER documented in this encounter Plan of Treatment Upcoming Encounters Date Type Specialty Care Team Description 01/22/2022 Office Visit Cardiovascular Disease Maritza Currie M.D. [address] [place], [place] [phone] (Wo rk) Scheduled Orders Name Type Priority Associated Diagnoses Order S chedule Cardiac Rehab Card Rehab Routine Non-ST Elevation 36 Occurre nces Program Myocardial Infarction starti ng 01/14/2022 (HCC) until 01/14/2023 Percutaneous Transarterial Coronary Angioplasty Stat us Post Coronary Stent Status Post Scheduled Referrals Name Type Priority Associated Order Schedule Diagnoses Cardiovascular Disease Outpatient Referral Routine Ischemic He art Expected: - Cardiovascular health Chronic Disease 1 03/16/2021 (preventive cardiology) (Jakob roximate), consult (clinic) Expires: 04/16/2023 documented as of this encounter Procedures Procedure Name Priority Date/Time Associated Comments Diagnosis GLUCOSE POCT, B Routine 01/14/2022 11:45 Results for this AM REPORTS DEVELOPER procedure are i n the results section. (TTE) 2D ECHO DOPPLER Routine 01/14/2022 9:49 Res ults for this COLOR AND CONTRAST AM REPORTS DEVELOPER procedure are in the results section. [id number] GENOTYPE Routine 01/14/2022 8:47 Results for this AM REPORTS DEVELOPER procedure are i n the results section. HEPARIN LEVEL ANTI-XA Routine 01/14/2022 6:42 Res ults for this ASSAY, P AM REPORTS DEVELOPER procedure are i n the results section. CBC WITHOUT Routine 01/14/2022 6:42 Results for this DIFFERENTIAL, B AM REPORTS DEVELOPER procedure ar e in the results section. BASIC METABOLIC PANEL, Routine 01/14/2022 6:42 Re sults for this S/P AM REPORTS DEVELOPER procedure are i n the results section. GLUCOSE POCT, B Routine 01/13/2022 11:17 Results for this PM REPORTS DEVELOPER procedure are i n the results section. GLUCOSE POCT, B Routine 01/13/2022 6:33 Results f or this PM REPORTS DEVELOPER procedure are i n the results section. GLUCOSE POCT, B Routine 01/13/2022 5:56 Results f or this PM REPORTS DEVELOPER procedure are i n the results section. CARDIAC CATHETERIZATION Routine 01/13/2022 4:20 Elevated Tropo jairo Results for this PM REPORTS DEVELOPER procedure are i n the results section. CARDIAC CATHETERIZATION Routine 01/13/2022 4:20 Elevated Tropo jairo Results for this PM REPORTS DEVELOPER procedure are i n the results section. CARDIAC CATHETERIZATION Routine 01/13/2022 4:20 Elevated Tropo jairo Results for this PM REPORTS DEVELOPER procedure are i n the results section. CARDIAC CATHETERIZATION Routine 01/13/2022 4:20 Elevated Tropo jairo Results for this PM REPORTS DEVELOPER procedure are i n the results section. ACT, POCT, B Routine 01/13/2022 4:01 Results for this PM REPORTS DEVELOPER procedure are i n the results section. ACT, POCT, B Routine 01/13/2022 3:50 Results for this PM REPORTS DEVELOPER procedure are i n the results section. GLUCOSE POCT, B Routine 01/13/2022 11:44 Results for this AM REPORTS DEVELOPER procedure are i n the results section. HEPARIN LEVEL ANTI-XA Timed 01/13/2022 10:49 Re sults for this ASSAY, P AM REPORTS DEVELOPER procedure are i n the results section. GLUCOSE POCT, B Routine 01/13/2022 8:01 Results f or this AM REPORTS DEVELOPER procedure are i n the results section. LIPID PANEL, S Routine 01/13/2022 4:51 Results fo r this AM REPORTS DEVELOPER procedure are i n the results section. RENAL FUNCTION PANEL, S Routine 01/13/2022 4:51 R esults for this AM REPORTS DEVELOPER procedure are i n the results section. NT-PRO B-TYPE Routine 01/13/2022 4:51 Results for this NATRIURETIC PEPTIDE AM REPORTS DEVELOPER procedur e are in (BNP), S the results section. HEPARIN LEVEL ANTI-XA Timed 01/13/2022 4:51 Res ults for this ASSAY, P AM REPORTS DEVELOPER procedure are i n the results section. CBC WITHOUT Routine 01/13/2022 4:51 Results for this DIFFERENTIAL, B AM REPORTS DEVELOPER procedure ar e in the results section. MAGNESIUM, S Routine 01/13/2022 4:51 Results for this AM REPORTS DEVELOPER procedure are i n the results section. HEMOGLOBIN A1C, B Routine 01/13/2022 4:51 Results for this AM REPORTS DEVELOPER procedure are i n the results section. TYPE AND SCREEN Routine 01/13/2022 4:50 Results f or this AM REPORTS DEVELOPER procedure are i n the results section. TROPONIN T, 5TH GEN, P Routine 01/13/2022 4:50 Re sults for this AM REPORTS DEVELOPER procedure are i n the results section. GLUCOSE POCT, B Routine 01/12/2022 11:39 Results for this PM REPORTS DEVELOPER procedure are i n the results section. ADULT OXYGEN THERAPY Routine 01/12/2022 9:39 PM REPORTS DEVELOPER ADULT OXYGEN THERAPY Routine 01/12/2022 9:39 PM REPORTS DEVELOPER documented in this encounter Results (ABNORMAL) Glucose, POCT (01/14/2022 11:45 AM REPORTS DEVELOPER) Analysis Performed At Patho logist Time Signature Glucose, POCT, 246 (H) 70 - 140 01/14/2022 PCLX B mg/dL 11:47 AM REPORTS DEVELOPER Site Capillary 01/14/2022 PCLX 11:47 AM REPORTS DEVELOPER Last Intake > 4 hours 01/14/2022 PCLX 11:47 AM REPORTS DEVELOPER Specimen Anatomical Collection Method Collection Time Receive d Time (Source) Location / / Volume Laterality Blood 01/14/2022 11:45 01/14/2022 AM REPORTS DEVELOPER 11:47 AM REPORTS DEVELOPER Unknown Provider LAB POCT ORDERABLES-MANUAL Performing Organization Address City/State/ZIP Code Phon e Number POC [facility] [address] [place] [address] PCLX [facility] [place] [address] [place] [facility] [address] (TTE) 2D ECHO DOPPLER COLOR AND CONTRAST (01/14/2022 9:49 AM REPORTS DEVELOPER) Patholo gist Method Time Signature Ejection Fraction 57 MC CV EIMS Mid-Ascending Aorta 33 MC CV EIMS Wall Motion Score 1.06 MC CV EIMS Index LV Mass Index 89 MC CV EIMS LV End-Diastolic 55 MC CV EIMS Diameter LV End-Systolic 37 MC CV EIMS Diameter LV End-Diastolic 132 MC CV EIMS Volume LV End-Systolic 56 MC CV EIMS Volume MV E Velocity 0.60 MC CV EIMS MV A Velocity 1 MC CV EIMS MV E/A 0.60 MC CV EIMS MV e' Velocity 0.05 MC CV EIMS Medial MV e' Velocity 0.06 MC CV EIMS Lateral MV E/e' Medial 12 MC CV EIMS MV E/e' Lateral 10 MC CV EIMS Left ventricular 46 MC CV EIMS stroke volume index Cardiac Output 5.87 MC CV EIMS Cardiac Index 3.26 MC CV EIMS LV Interventricular 7 MC CV EIMS Septal Wall Thickness LV Posterior Wall 9 MC CV EIMS Thickness LV Relative Wall 33 MC CV EIMS Thickness RV 4-Chamber Basal 38 MC CV EIMS Diameter RV 4-Chamber Mid 29 MC CV EIMS Diameter RV 4-Chamber Length 70 MC CV EIMS TAPSE 22 MC CV EIMS Tricuspid Annular S? 0.14 MC CV EIMS TR Vmax 2.76 MC CV EIMS RA Pressure 5 MC CV EIMS RV Systolic Pressure 35 MC CV EIM S Estimated diastolic 7 MC CV EIMS pulmonary artery pressure AV mean gradient 7 MC CV EIMS Aortic valve area 2.36 MC CV EIMS Aortic Valve 0.75 MC CV EIMS Dimensionless Index LA Volume Index 44 MC CV EIMS Aortic Valve 1.90 MC CV EIMS Systolic Peak Velocity Anatomical Region Laterality Modality Echocardiography Specimen (Source) Anatomical Collection Method Collection Time Re ceived Time Location / / Volume Laterality 01/14/2022 8:05 AM REPORTS DEVELOPER Impressions 01/14/2022 12:16 PM REPORTS DEVELOPER Status post coronary artery stent implantation (LAD, 13-JAN-2022). Echo performed at the patient's bedside. LEFT VENTRICLE:Normal left ventricular c hamber size. Normal left ventricular wall thickness. Calculated 2-D biplane volumetric left ventricular ejection fraction 57%. Left ventricular cardiac index 3.26 l/min/m2. Regional wall motion abnormal ities were present (see wall motion graphics). Grad e 1a/3 left ventricular diastolic dysfunction, consistent with mildly elevated left ventricular filling pressure at rest. RIGHT VENTRICLE:Normal right ventricular chamber size. Normal right ventricular systolic function. Estimated right ventricular systolic pressure 35 mmHg (right atrial pressure of 5 mmHg) (Maybe underestimated due to incomplete doppler signal.) ATRIA:Moderately enlarged left atrial si ze. Left atrial volume index 44 ml/m2. Normal right atrial size by visual estimate. CARDIAC VALVES:Trileaflet aortic valve. Thickened aortic valve. No aortic valve regurgitation. Thickened mitral valve. Trivial mitral valve regurgitation. Pulmonary valve not well visualized. Normal pul monary valve systolic velocities. Trivia l pulmonary valve regurgitation. Normal tricuspid va lve. Trivial tricuspid valve regurgitation. OTHER ECHO FINDINGS:Normal inferior vena cava size with normal inspiratory collapse (>50%). Normal mid ascending aorta diameter of 33 mm. Upper limit of normal of the mid ascending aorta, for age, sex and BSA is 39 mm. Abdominal aorta incompletely visualized. Normal abdominal aorta Doppl er flow pattern. Imaging inadequate for detection of atrial level shunt by color flow imaging. No intracardiac mass or thrombus, but the left atrial appendage can not be visualized adequately with transt horacic echo to exclude thrombus in this location. No ??pericardial effusion. Prominent anterior and apical epicardial fat layer. For the complete report, see the [employer] PAC Documents. Narrative 01/14/2022 12:16 PM REPORTS DEVELOPER For the complete report, see the Order-Level Documents. Hemodynamics Heart Rate: 71 BPM Blood Pressure: 115 / 67 mmHg ECG: Sinus rhythm Final Impressions 1. Status post coronary artery stent imp lantation (LAD, 13-JAN-2022). 2. Normal left ventricular chamber size, calculated 2-D biplane volumetric ejection fraction 57%. 3. Focal hypokinesis of the anteroseptum seen on the contrast-enhanced images, may correspond to a septal lot boss seen on coronary angiography. 4. Grade 1a/3 left ventricular diastolic dysfunction, consistent with mildly elevated left ventricular filling pressure at rest. 5. Normal right ventricular chamber size , normal systolic function, estimated right ventricular systolic pressure 35 mmHg (right atrial pressure of 5 mmHg). 6. Normal inferior vena cava size with n ormal inspiratory collapse (>50%). 7. No ??significant valvular heart disea se. 8. No ??pericardial effusion. Procedure Note Felix Osei M.D. - 01/14/2022Forma tting of this note might be different from the original. For the complete report, see the [employer] PAC Documents. Hemodynamics Heart Rate: 71 BPM Blood Pressure: 115 / 67 mmHg ECG: Sinus rhythm Final Impressions 1. Status post coronary artery stent imp lantation (LAD, 13-JAN-2022). 2. Normal left ventricular chamber size, calculated 2-D biplane volumetric ejection fraction 57%. 3. Focal hypokinesis of the anteroseptum seen on the contrast-enhanced images, may correspond to a septal lot boss seen on coronary angiography. 4. Grade 1a/3 left ventricular diastolic dysfunction, consistent with mildly elevated left ventricular filling pressure at rest. 5. Normal right ventricular chamber size , normal systolic function, estimated right ventricular systolic pressure 35 mmHg (right atrial pressure of 5 mmHg). 6. Normal inferior vena cava size with n ormal inspiratory collapse (>50%). 7. No significant valvular heart disease . 8. No pericardial effusion. Findings Status post coronary artery stent implan tation (LAD, 13-JAN-2022). Echo performed at the patient's bedside. LEFT VENTRICLE:Normal left ventricular c hamber size. Normal left ventricular wall thickness. Calculated 2-D biplane volumetric left ventricular ejection fraction 57%. Left ventricular cardiac index 3.26 l/min/m2. Regional wall motion abnormali ties were present (see wall motion graphics). Grade 1a/3 left ventricular diastolic dysfunction, consistent with mildly elevated left ventricular filling pressure at rest. RIGHT VENTRICLE:Normal right ventricular chamber size. Normal right ventricular systolic function. Estimated right ventricular systolic pressure 35 mmHg (right atrial pressure of 5 mmHg) (Maybe underestimated due to incomplete doppler signal.) ATRIA:Moderately enlarged left atrial si ze. Left atrial volume index 44 ml/m2. Normal right atrial size by visual estimate. CARDIAC VALVES:Trileaflet aortic valve. Thickened aortic valve. No aortic valve regurgitation. Thickened mitral valve. Trivial mitral valve regurgitation. Pulmonary valve not well visualized. Normal pulmonary valve systolic velocities. Trivial pulmonary v alve regurgitation. Normal tricuspid valve. Trivial tricuspid valve regurgitation. OTHER ECHO FINDINGS:Normal inferior vena cava size with normal inspiratory collapse (>50%). Normal mid ascending aorta diameter of 33 mm. Upper limit of normal of the mid ascending aorta, for age, sex and BSA is 39 mm. Abdominal aorta incompletely visualized. Normal abdominal aorta Doppler flow pattern. Imaging inadequate for detection of atrial level shunt by color flow imaging. No intracardiac mass or thrombus, but the left atrial appendage cannot be visualized adequatel y with transthoracic echo to exclude thrombus in this location. No pericardial effusion. Prominent anterior and apical epicardial fat layer. For the complete report, see the Order-L evel Documents. Troy Jackson M.D., Ph.D. CV ECHO PROCEDURES Cytochrome P450 2C19 Genotype, Varies (01/14/2022 8:47 AM REPORTS DEVELOPER) Component Value Ref Test Analysis Performed Pathologis t Range Method Time At Signature [id number] Genotype 02/1601/15/2022 DTL 4:14 PM REPORTS DEVELOPER [id number] Phenotype Normal (extensive) 01/15/2022 DT L metabolizer 4:14 PM REPORTS DEVELOPER Method Genotyping is performed using a PCR-based 5'-nuclease 01/15/2022 DTL assay. Fluorescently labeled detection probes anneal to the 4:14 PM target DNA. PCR is used to amplify the segment of DNA that REPORTS DEVELOPER contains the polymorphism. If the detection probe is an exact match to the target DNA, the 5'-nuclease polymerase degrades the probe, the broadcast director operations dye is released from the effects of the quencher dye, and a fluorescent signal is detected. Genotypes are assigned based on the allele-specific fluorescent signals that are detected. ([employer] SNP Genotyping Assays User Guide, [employer]) Disclaimer Targeted variant analysis was used to test for the pre sence 01/15/2022 DTL or absence of specific variants in the [id number] gene:*2 4:14 PM (c.681G>A), *3 (c.636G>A), *4 (c.1A>G), *5 (c.1297C>T), *6 REPORTS DEVELOPER (c.395G>A), *7 (c.819+2T>A), *8 (c.358T>C), *9 (c.431G>A), *10 (c.680C>T), *17 (c.-806C>T), and *35 (c.332-23A>G in the absence of c.681G>A), based on GRCh37 [id number]. If no detectable BCE2N79 variant is found, a presumed *1 allele is assigned. This method will not detect all variants that result in altered HLD7O32 activity. Therefore, absence of a detectable gene variant does not rule out the possibility that a patient has an altered YQP5E96 metabolism status due to other MHF5V40 variants that cannot be detected with this method. Furthermore, when two or more gene variants are identified, the cis-trans status (whether the variants are on the same or opposite chromosomes) is not always known. In addition to a genetic basis for CPV6F81 altered enzymatic activity, BTC4N23 enzyme activity can be inhibited by a variety of medications or their metabolites. CAUTIONS: Rare variants may be present that could lead to false negative or positive results. If results obtained do not match the clinical findings (phenotype), additional testing should be considered. Samples may contain donor DNA if obtained from patients who have recently received non-leukoreduced blood transfusions or allogeneic hematopoietic stem cell transplantation. Results from samples obtained under these circumstances may not accurately reflect the recipient's genotype. For individuals who have received blood transfusions, the genotype usually reverts to that of the recipient within 6 weeks. For individuals who have received allogeneic hematopoietic stem cell transplantation, a pre-transplant DNA specimen is recommended for testing. FXL4P94 genetic test results in patients who have undergone liver transplantation may not accurately reflect the patient's HXP7N07 status. This test was developed and its performance characteristics determined by [facility] in a manner consistent with CLIA requirements. This test has not been cleared or approved by the U.S. Food and Drug Administration. Reviewed by Gita Sanches 01/15/2022 CHRISSIE Hartman, Ph.D. 4:14 PM REPORTS DEVELOPER Interpretation With prodrugs that are activated by IVY1C44, such as 01/15/2022 DTL clopidogrel, normal drug activation by GOH7Z58 is expected 4:14 PM to occur. REPORTS DEVELOPER With drugs that are inactivated by KHK5N95, such as citalopram, normal inactivation is expected. Specimen Anatomical Collection Method Collection Time Receive d Time (Source) Location / / Volume Laterality Blood (Blood, 01/14/2022 8:47 AM 01/15/20 9:48 Venous) REPORTS DEVELOPER AM REPORTS DEVELOPER Narrative This result has an attachment that is no t available. Luis Alberto Bernardo M.D. LAB GENETIC TESTING Performing Organization Address City/State/ZIP Code Phon e Number [facility] - [address] [place], [place] [address] [place] [address] Laboratories-[facility] [address] (ABNORMAL) CBC without Differential (01/14/2022 6:42 AM REPORTS DEVELOPER) [facility] gist Method Time Signature Hemoglobin 10.2 (L) 11.6 - 01/14/2022 DTL 15.0 g/dL 7:14 AM REPORTS DEVELOPER Hematocrit 33.0 (L) 35.5 - 01/14/2022 DTL 44.9 % 7:14 AM REPORTS DEVELOPER Erythrocytes 3.48 (L) 3.92 - 01/14/2022 DTL 5.13 7:14 AM REPORTS DEVELOPER x10(12)/L MCV 94.8 78.2 - 01/14/2022 DTL 97.9 fL 7:14 AM REPORTS DEVELOPER RBC Distrib Width 14.6 12.2 - 01/14/2022 DTL 16.1 % 7:14 AM REPORTS DEVELOPER Platelet Count 209 157 - 371 01/14/2022 DTL x10(9)/L 7:14 AM REPORTS DEVELOPER Leukocytes 8.5 3.4 - 9.6 01/14/2022 DTL x10(9)/L 7:14 AM REPORTS DEVELOPER Specimen Anatomical Collection Method Collection Time Receive d Time (Source) Location / / Volume Laterality Blood (Blood, 01/14/2022 6:42 AM 01/15/20 7:03 Venous) REPORTS DEVELOPER AM REPORTS DEVELOPER Troy Jackson M.D., Ph.D. LAB BLOOD ADD-ON Performing Organization Address City/State/ZIP Code Phon e Number [facility] - [address] [place] [address] [phone] [facility] [place] [address] Laboratories-[facility] [address] [facility] (ABNORMAL) Basic Metabolic Panel (01/14/2022 6:42 AM REPORTS DEVELOPER) Analysis Performed At Patho logist Time Signature Potassium, S 4.0 3.6 - 5.2 01/14/2022 DTL mmol/L 7:30 AM REPORTS DEVELOPER Sodium, S 143 135 - 145 01/14/2022 DTL mmol/L 7:30 AM REPORTS DEVELOPER Chloride, S 109 (H) 98 - 107 01/14/2022 DTL mmol/L 7:30 AM REPORTS DEVELOPER Bicarbonate, S 23 22 - 29 01/14/2022 DTL mmol/L 7:30 AM REPORTS DEVELOPER Anion Gap 11 7 - 15 01/14/2022 DTL 7:30 AM REPORTS DEVELOPER BUN (Blood Urea 24 (H) 6 - 21 01/14/2022 DTL Nitrogen), S mg/dL 7:30 AM REPORTS DEVELOPER Creatinine 1.49 (H) 0.59 - 01/14/2022 DTL 1.04 mg/dL 7:30 AM REPORTS DEVELOPER Estimated GFR 36 (L) >=60 01/14/2022 DTL (eGFR) mL/min/BSA 7:30 AM REPORTS DEVELOPER Comment: Estimated GFR calculated using the 2020 CKD_EPI creatinine equation. Calcium, Total, S 9.2 8.8 - 10.2 mg/dL 01/14/2022 7:30 AM REPORTS DEVELOPER DTL Glucose, S 134 70 - 140 mg/dL 01/14/2022 7:30 AM REPORTS DEVELOPER D TL Specimen Anatomical Collection Method Collection Time Receive d Time (Source) Location / / Volume Laterality Blood (Blood, 01/14/2022 6:42 AM 01/15/20 7:14 Venous) REPORTS DEVELOPER AM REPORTS DEVELOPER Troy Jackson M.D., Ph.D. LAB BLOOD ADD-ON Performing Organization Address City/[facility] Phon e Number [facility] - [address] [place], [place] [address] [facility] [place] [address] Laboratories-[facility] [address] [facility] Heparin Anti-Xa Assay (01/14/2022 6:42 AM REPORTS DEVELOPER) P athologist Signature Heparin <0.10 IU/mL 01/14/2022 DTL Anti-Xa, P 8:59 AM REPORTS DEVELOPER Comment: UFH therapeutic range: ?? 0.30-0.70 IU/mL LMWH therapeutic range: 0.50-1.00 IU/mL 0.50-1.00 IU/mL for twice daily dosing ? ? 1.00-2.00 IU/mL for once daily dosing (sample obtained 4-6 hours following sub cutaneous injection) LMWH prophylactic range:0.10-0.30 IU/mL ----ADDITIONAL INFORMATION---- Heparin Anti-Xa is used to measure hepar in concentrations in patients receiving low molecular weig ht heparin (LMWH) or unfractionated heparin (UFH). Specimen Anatomical Collection Method Collection Time Receive d Time (Source) Location / / Volume Laterality Blood (Blood, 01/14/2022 6:42 AM 01/15/20 7:14 Venous) REPORTS DEVELOPER AM REPORTS DEVELOPER Troy Jackson M.D., Ph.D. LAB BLOOD NON ADD-ON Performing Organization Address City/State/ZIP Code Phon e Number [facility] - [address] [place], [place] [address] [facility] [place] [address] [facility] [address] (ABNORMAL) Glucose, POCT (01/13/2022 11:17 PM REPORTS DEVELOPER) Analysis Performed At Patho logist Time Signature Glucose, POCT, 179 (H) 70 - 140 01/13/2022 PCLX B mg/dL 11:23 PM REPORTS DEVELOPER Site Capillary 01/13/2022 PCLX 11:23 PM REPORTS DEVELOPER Last Intake 2-3 hours 01/13/2022 PCLX 11:23 PM REPORTS DEVELOPER Specimen Anatomical Collection Method Collection Time Receive d Time (Source) Location / / Volume Laterality Blood 01/13/2022 11:17 01/13/2022 PM REPORTS DEVELOPER 11:23 PM REPORTS DEVELOPER Unknown Provider LAB POCT ORDERABLES-MANUAL Performing Organization Address City/[facility] Phon e Number POC [facility] [address] [place] [address] [place] [address] [place] [facility] [address] [facility] Glucose, POCT (01/13/2022 6:33 PM REPORTS DEVELOPER) P athologist Signature Glucose, POCT, 98 70 - 140 01/13/2022 PCLX B mg/dL 6:35 PM REPORTS DEVELOPER Last Intake NPO 01/13/2022 PCLX 6:35 PM REPORTS DEVELOPER Specimen Anatomical Collection Method Collection Time Receive d Time (Source) Location / / Volume Laterality Blood 01/13/2022 6:33 PM 6:35 REPORTS DEVELOPER PM REPORTS DEVELOPER Unknown Provider LAB POCT ORDERABLES-MANUAL Performing Organization Address City/[facility] Phon e Number POC [facility] [address] [place] [address] [place] [address] [place] [facility] [address] [facility] (ABNORMAL) Glucose, POCT (01/13/2022 5:56 PM REPORTS DEVELOPER) P athologist Signature Glucose, POCT, 65 (L) 70 - 140 01/13/2022 PCLX B mg/dL 5:59 PM REPORTS DEVELOPER Specimen Anatomical Collection Method Collection Time Receive d Time (Source) Location / / Volume Laterality Blood 01/13/2022 5:56 PM 2 5:59 REPORTS DEVELOPER PM REPORTS DEVELOPER Unknown Provider LAB POCT ORDERABLES-MANUAL Performing Organization Address City/State/ZIP Code Phon e Number POC [facility] [address] [place] [address] PCLX [facility] [place] [address] [place] [facility] [address] CORONARY ANGIOGRAPHY, LEFT HEART CATHETERIZATION, PERCUTANEOUS CORONARY ANGIOPLASTY, STENT PLACEMENT(01/13/2022 4:20 PM REPORTS DEVELOPER) Anatomical Region Laterality Modality X-Ray Angiography Specimen (Source) Anatomical Collection Method Collection Time Re ceived Time Location / / Volume Laterality 01/13/2022 3:36 PM REPORTS DEVELOPER Narrative 01/14/2022 1:47 PM REPORTS DEVELOPER For the complete report, see the Order-L evel Documents. PROCEDURE TYPES 1. ??CORONARY ANGIOGRAPHY 2. ??HEART CATHETERIZATION - LEFT 3. ??PERCUTANEOUS CORONARY ANGIOPLASTY 4. ??CORONARY STENT PLACEMENT FINAL DIAGNOSIS 1. ??Non ST-elevation myocardial infarct ion 2. ??Severe coronary artery atherosclero sis 3. ??Coronary in-stent restenosis 4. ??Successful percutaneous coronary in tervention with drug eluting stent PRE-PROCEDURE DIAGNOSIS 1. ??Elevated Troponin CORONARY DIAGNOSTIC SUMMARY Coronary artery dominance is right. Norm al right coronary. Normal left main coronary. Normal circumflex coronary. The middle left anterior descending jelly ry is 95% obstructed by multiple discrete lesions. The distal segment is normal size. There is in-stent restenosis involving m id LAD stent. CORONARY INTERVENTION SUMMARY Successful intervention of the Middle Le ft Anterior Descending Artery. The preintervention stenosis was 95%. The post intervention stenosis was 0%. Devices used include PTCA and Stent. RADIATION DOSE DATA Procedure cumulative skin dose (mGy): 27 4.81 Procedure cumulative dose area product ( Gy-cm2): 18.71 Fluoro Time (Min): 9.10 CONTRAST DOSE DATA IOHEXOL 350 MG IODINE/ML INTRAVENOUS KIM UTION: 80mL For the complete report, see the Order-L evel Documents. Av Hawkins M.D. CV CARDIAC CATH PROCEDURES (ABNORMAL) ACT (Activated Clotting Time), POCT (01/13/2022 4:01 PM REPORTS DEVELOPER) athologist Signature Activated 239 (H) 84 - 139 01/13/2022 PCSM Clotting Time, sec 4:06 PM REPORTS DEVELOPER POCT Specimen Anatomical Collection Method Collection Time Receive d Time (Source) Location / / Volume Laterality Blood 01/13/2022 4:01 PM 2 4:06 REPORTS DEVELOPER PM REPORTS DEVELOPER Unknown Provider LAB POCT ORDERABLES - DEVICE Performing Organization Address [facility] Phon e Number POC [facility] [address] [place], [place] [address] [place] [address] [place] [facility] [address] (ABNORMAL) ACT (Activated Clotting Time), POCT (01/13/2022 3:50 PM REPORTS DEVELOPER) athologist Signature Activated 191 (H) 84 - 139 01/13/2022 PCSM Clotting Time, sec 3:54 PM REPORTS DEVELOPER POCT Specimen Anatomical Collection Method Collection Time Receive d Time (Source) Location / / Volume Laterality Blood 01/13/2022 3:50 PM 2 3:55 REPORTS DEVELOPER PM REPORTS DEVELOPER Unknown Provider LAB POCT ORDERABLES - DEVICE Performing Organization Address [facility] Phon e Number POC [facility] [address] [place], [place] [address] [place] [address] [place] [facility] [address] Glucose, POCT (01/13/2022 11:44 AM REPORTS DEVELOPER) athologist Signature Glucose, POCT, 104 70 - 140 01/13/2022 PCLX B mg/dL 12:32 PM REPORTS DEVELOPER Specimen Anatomical Collection Method Collection Time Receive d Time (Source) Location / / Volume Laterality Blood 01/13/2022 11:44 01/13/2022 AM REPORTS DEVELOPER 12:32 PM REPORTS DEVELOPER Unknown Provider LAB POCT ORDERABLES-MANUAL Performing Organization Address City/[facility] Phon e Number POC [facility] [address] [place] [address] [place] [address] [place] [facility] [address] Heparin Anti-Xa Assay (01/13/2022 10:49 AM REPORTS DEVELOPER) athologist Signature Heparin 0.28 IU/mL 01/13/2022 DTL Anti-Xa, P 11:21 AM REPORTS DEVELOPER Comment: UFH therapeutic range: ?? 0.30-0.70 IU/mL LMWH therapeutic range: 0.50-1.00 IU/mL 0.50-1.00 IU/mL for twice daily dosing ? ? 1.00-2.00 IU/mL for once daily dosing (sample obtained 4-6 hours following sub cutaneous injection) LMWH prophylactic range:0.10-0.30 IU/mL ----ADDITIONAL INFORMATION---- Heparin Anti-Xa is used to measure hepar in concentrations in patients receiving low molecular weig ht heparin (LMWH) or unfractionated heparin (UFH). Specimen Anatomical Collection Method Collection Time Receive d Time (Source) Location / / Volume Laterality Blood (Blood, 01/13/2022 10:49 01/13/2022 Venous) AM REPORTS DEVELOPER 11:09 AM REPORTS DEVELOPER John Graves M.D. LAB BLOOD NON ADD-ON Performing Organization Address City/State/ZIP Code Phon e Number [facility] - [address] [place], [place] [address] [place] [address] [facility] [address] Glucose, POCT (01/13/2022 8:01 AM REPORTS DEVELOPER) athologist Signature Glucose, POCT, 139 70 - 140 01/13/2022 PCLX B mg/dL 8:31 AM REPORTS DEVELOPER Specimen Anatomical Collection Method Collection Time Receive d Time (Source) Location / / Volume Laterality Blood 01/13/2022 8:01 AM 8:31 REPORTS DEVELOPER AM REPORTS DEVELOPER Unknown Provider LAB POCT ORDERABLES-MANUAL Performing Organization Address City/State/[facility] Phon e Number POC [facility] [address] [place] [address] PCLX [facility] [place] [address] [place] [facility] [address] Heparin Anti-Xa Assay (01/13/2022 4:51 AM REPORTS DEVELOPER) P athologist Signature Heparin 0.31 IU/mL 01/13/2022 DT Anti-Xa, P 5:50 AM REPORTS DEVELOPER Comment: UFH therapeutic range: ?? 0.30-0.70 IU/mL LMWH therapeutic range: 0.50-1.00 IU/mL 0.50-1.00 IU/mL for twice daily dosing ? ? 1.00-2.00 IU/mL for once daily dosing (sample obtained 4-6 hours following sub cutaneous injection) LMWH prophylactic range:0.10-0.30 IU/mL ----ADDITIONAL INFORMATION---- Heparin Anti-Xa is used to measure hepar in concentrations in patients receiving low molecular weig ht heparin (LMWH) or unfractionated heparin (UFH). Specimen Anatomical Collection Method Collection Time Receive d Time (Source) Location / / Volume Laterality Blood (Blood, 01/13/2022 4:51 AM 01/14/20 5:36 Venous) REPORTS DEVELOPER AM REPORTS DEVELOPER Petey Amato M.D., Ph.D. LAB BLOOD NON ADD-ON Performing Organization Address City/State/ZIP Code Phon e Number [facility] - [address] [place] [address] [address] [facility] [place] [address] [facility] 200 [facility] (ABNORMAL) Lipid Panel (01/13/2022 4:51 AM REPORTS DEVELOPER) athologist Signature Triglycerides 346 (H) mg/dL 01/13/2022 DTL 7:12 AM REPORTS DEVELOPER Comment: ----REFERENCE VALUE---- Normal: <150 mg/dL Borderline High: 150-199 mg/dL High: 200-499 mg/dL Very High: > or =500 mg/dL Cholesterol, Total 245 (H) mg/dL 01/13/2022 7:12 AM CS T DTL Comment: ----REFERENCE VALUE---- Desirable: < 200 mg/dL Borderline High: 200 - 239 mg/dL High: > or = 240 mg/dL Cholesterol, LDL, Calculated 136 (H) mg/dL 01/13/2022 7:12 AM REPORTS DEVELOPER DTL Comment: ----REFERENCE VALUE---- Desirable: <100 mg/dL Above Desirable: 100-129 mg/dL Borderline High: 130-159 mg/dL High: 160-189 mg/dL Very High: >=190 mg/dL ----ADDITIONAL INFORMATION---- LDL cholesterol calculated using the Hills/NIH equation. Cholesterol, HDL, S 46 (L) >=50 mg/dL 01/13/2022 7:12 AM REPORTS DEVELOPER DTL Cholesterol, Non-HDL, Calculated 199 (H) mg/dL 022 7:12 AM REPORTS DEVELOPER DTL Comment: ----REFERENCE VALUE---- Desirable: <130 mg/dL Above Desirable: 130-159 mg/dL Borderline High: 160-189 mg/dL High: 190-219 mg/dL Very High: > or =220 mg/dL Fasting (8 HR or more) No 01/13/2022 6:14 A M REPORTS DEVELOPER DTL Specimen Anatomical Collection Method Collection Time Receive d Time (Source) Location / / Volume Laterality Blood (Blood, 01/13/2022 4:51 AM 01/14/20 6:14 Venous) REPORTS DEVELOPER AM REPORTS DEVELOPER Troy Jackson M.D., Ph.D. LAB BLOOD ADD-ON Performing Organization Address City/[facility] Phon e Number [facility] - [address] (ABNORMAL) Hemoglobin A1c (01/13/2022 4:51 AM REPORTS DEVELOPER) athologist [facility] Hemoglobin A1c, 8.8 (H) 4.0 - 5.6 01/13/2022 DT B % 6:34 AM REPORTS DEVELOPER Comment: Hemoglobin A1c values greater than or eq ual to 6.5 percent are diagnostic for diabetes mellitus. ?? Diagnosis should be confirmed by repeat testing. ??In diabet ic patients, HbA1c goals should be discussed with healthcar e provider. Specimen Anatomical Collection Method Collection Time Receive d Time (Source) Location / / Volume Laterality Blood (Blood, 01/13/2022 4:51 AM 01/14/20 5:37 Venous) REPORTS DEVELOPER AM REPORTS DEVELOPER Troy Jackson M.D., Ph.D. LAB BLOOD ADD-ON Performing Organization Address City/[facility] Phon e Number [facility] - [address] (ABNORMAL) NT-Pro B-Type Natriuretic Peptide (BNP) (01/13/2022 4:51 AM REPORTS DEVELOPER) P athologist Signature NT-Pro BNP 1630 (H) <=540 pg/mL 01/13/2022 DTL 7:12 AM REPORTS DEVELOPER Comment: NT-proBNP values less than 300 pg/mL hav e a 99% negative predictive value for excluding acute con gestive heart failure. A cutoff of 1200 pg/mL for jud ents with an eGFR<60 yields a diagnostic sensitivity and spec ificity of 89% and 72% for acute congestive heart failure. A diagnostic NT-proBNP cutoff of 1800 pg/mL has been suggested in adults over 75 years of age in the absence of r enal failure. Specimen Anatomical Collection Method Collection Time Receive d Time (Source) Location / / Volume Laterality Blood (Blood, 01/13/2022 4:51 AM 01/14/20 6:14 Venous) REPORTS DEVELOPER AM REPORTS DEVELOPER Troy Jackson M.D., Ph.D. LAB BLOOD ADD-ON Performing Organization Address City/[facility] Phon e Number [facility] - [address] Magnesium (01/13/2022 4:51 AM REPORTS DEVELOPER) athologist Signature Magnesium, S 1.9 1.7 - 2.3 01/13/2022 DTL mg/dL 7:12 AM REPORTS DEVELOPER Specimen Anatomical Collection Method Collection Time Receive d Time (Source) Location / / Volume Laterality Blood (Blood, 01/13/2022 4:51 AM 01/14/20 22 6:14 Venous) REPORTS DEVELOPER AM REPORTS DEVELOPER Troy Jackson M.D., Ph.D. LAB BLOOD ADD-ON Performing Organization Address City/[facility] Phon e Number [facility] - [address] (ABNORMAL) Renal Function Panel (01/13/2022 4:51 AM REPORTS DEVELOPER) Analysis Performed At Patho logist Time Signature Potassium, S 4.1 3.6 - 5.2 01/13/2022 DTL mmol/L 7:12 AM REPORTS DEVELOPER Sodium, S 144 135 - 145 01/13/2022 DTL mmol/L 7:12 AM REPORTS DEVELOPER Chloride, S 109 (H) 98 - 107 01/13/2022 DTL mmol/L 7:12 AM REPORTS DEVELOPER Bicarbonate, S 22 22 - 29 01/13/2022 DTL mmol/L 7:12 AM REPORTS DEVELOPER Anion Gap 13 7 - 15 01/13/2022 DTL 7:12 AM REPORTS DEVELOPER BUN (Blood Urea 27 (H) 6 - 21 01/13/2022 DTL Nitrogen), S mg/dL 7:12 AM REPORTS DEVELOPER Creatinine 1.56 (H) 0.59 - 01/13/2022 DTL 1.04 mg/dL 7:12 AM REPORTS DEVELOPER Estimated GFR 34 (L) >=60 01/13/2022 DTL (eGFR) mL/min/BSA 7:12 AM REPORTS DEVELOPER Comment: Estimated GFR calculated using the 2020 CKD_EPI creatinine equation. Calcium, Total, S 9.3 8.8 - 10.2 mg/dL 01/13/2022 7:12 AM REPORTS DEVELOPER DTL Glucose, S 152 (H) 70 - 140 mg/dL 01/13/2022 7:12 AM REPORTS DEVELOPER D TL Albumin, S 3.8 3.5 - 5.0 g/dL 01/13/2022 7:12 AM REPORTS DEVELOPER D TL Phosphorus (Inorganic), S 3.4 2.5 - 4.5 mg/dL 01/14/20 7:12 AM REPORTS DEVELOPER DTL Specimen Anatomical Collection Method Collection Time Receive d Time (Source) Location / / Volume Laterality Blood (Blood, 01/13/2022 4:51 AM 01/14/20 6:14 Venous) REPORTS DEVELOPER AM REPORTS DEVELOPER Troy Jackson M.D., Ph.D. LAB BLOOD ADD-ON Performing Organization Address City/State/ZIP Code Phon e Number [facility] - [address] [place], [place] [address] [facility] [place] [address] [facility] [address] (ABNORMAL) CBC without Differential (01/13/2022 4:51 AM REPORTS DEVELOPER) [facility] gist Method Time Signature Hemoglobin 9.8 (L) 11.6 - 01/13/2022 DTL 15.0 g/dL 5:51 AM REPORTS DEVELOPER Hematocrit 32.1 (L) 35.5 - 01/13/2022 DTL 44.9 % 5:51 AM REPORTS DEVELOPER Erythrocytes 3.42 (L) 3.92 - 01/13/2022 DTL 5.13 5:51 AM REPORTS DEVELOPER x10(12)/L MCV 93.9 78.2 - 01/13/2022 DTL 97.9 fL 5:51 AM REPORTS DEVELOPER RBC Distrib Width 14.4 12.2 - 01/13/2022 DTL 16.1 % 5:51 AM REPORTS DEVELOPER Platelet Count 199 157 - 371 01/13/2022 DTL x10(9)/L 5:51 AM REPORTS DEVELOPER Leukocytes 8.7 3.4 - 9.6 01/13/2022 DTL x10(9)/L 5:51 AM REPORTS DEVELOPER Specimen Anatomical Collection Method Collection Time Receive d Time (Source) Location / / Volume Laterality Blood (Blood, 01/13/2022 4:51 AM 01/14/20 5:37 Venous) REPORTS DEVELOPER AM REPORTS DEVELOPER Av Hawkins M.D. LAB BLOOD ADD-ON Performing Organization Address City/[facility] Phon e Number [facility] - [address] DTL [address] Type and Screen (with reflex Antibody ID) (01/13/2022 4:50 AM REPORTS DEVELOPER) [facility] Method Time Signature ABORh A Neg Not 01/13/2022 STRM applicable 5:50 AM REPORTS DEVELOPER Antibody Negative Negative 01/13/2022 STRM Screen 6:02 AM REPORTS DEVELOPER Type & Screen 01/16/2022 01/13/2022 STRM Expiration 23:59 5:50 AM REPORTS DEVELOPER Testing [place] DEFAULT 01/13/2022 STRM Location 5:24 AM REPORTS DEVELOPER Specimen Anatomical Collection Method Collection Time Receive d Time (Source) Location / / Volume Laterality Blood (Blood, 01/13/2022 4:50 AM 01/14/20 5:24 Venous) REPORTS DEVELOPER AM REPORTS DEVELOPER Troy Jackson M.D., Ph.D. LAB BLOOD BANK TEST ORD ERABLES Performing Organization Address [facility] Phon e Number [facility] - [address] STRM [place] [address] [facility] (ABNORMAL) Troponin T, 5th Generation (01/13/2022 4:50 AM REPORTS DEVELOPER) athologist Signature Troponin T, 107 (H) <=10 ng/L 01/13/2022 [facility] 5th gen 5:14 AM REPORTS DEVELOPER Comment: Consider acute myocardial injur y Specimen Anatomical Collection Method Collection Time Receive d Time (Source) Location / / Volume Laterality Blood (Blood, 01/13/2022 4:50 AM 01/14/20 4:57 Venous) REPORTS DEVELOPER AM REPORTS DEVELOPER Troy Jackson M.D., Ph.D. LAB BLOOD ADD-ON Performing Organization Address City/State/ZIP Code Phon e Number [facility] - [address] [place], [place] [address] [place] [address] [facility] [address] (ABNORMAL) Glucose, POCT (01/12/2022 11:39 PM REPORTS DEVELOPER) athologist Signature Glucose, POCT, 223 (H) 70 - 140 01/13/2022 PCLX B mg/dL 12:05 AM REPORTS DEVELOPER Specimen Anatomical Collection Method Collection Time Receive d Time (Source) Location / / Volume Laterality Blood 01/12/2022 11:39 01/13/2022 PM REPORTS DEVELOPER 12:05 AM REPORTS DEVELOPER Unknown Provider LAB POCT ORDERABLES-MANUAL Performing Organization Address City/State/ZIP Code Phon e Number [facility] [address] [place] [address] [place] [address] [facility] [address] [facility] documented in this encounter Visit Diagnoses Diagnosis Non-ST Elevation Myocardial Infarction ( HCC) - Primary Elevated Troponin Non-ST Elevation Myocardial Infarction ( HCC) Percutaneous Transarterial Coronary Vero oplasty Status Post Coronary Stent Status Post Ischemic Heart Chronic Disease Elevated Troponin Anemia Anxiety Arthritis Rheumatoid (HCC) Atherosclerotic Heart Disease [place] Cor onary Artery With Other Forms Angina Pectoris (Stable Angina/Angina Of Exertion) (HCC) Diabetes Mellitus Type 2 (HCC) Chronic Kidney Disease (CKD), Stage 3b G lomerular Filtration Rate (GFR) 30 To 44 (HCC) Coronary Stent Status Post Gout Osteoporosis Hypertensive Chronic Kidney Disease (CKD ) Stage 3b Glomerular Filtration Rate (GFR) 30 To 44 (HCC) Elevated Troponin documented in this encounter Admitting Diagnoses Diagnosis Elevated Troponin documented in this encounter Administered Medications Inactive Administered Medications - up to 3 most recent administrations Medication Order MAR Action Action Date Dose Rate Site acetaminophen tablet 1,000 mg (TYLENOL) 1,000 mg, oral, 3 times daily PRN, mild pain or score 1-3 of 10, Starting on Thu01/14/22 at 1316, Postprocedure (CV) allopurinoL tablet 100 mg (ZYLOPRIM) Given 01/14/2022 9:47 AM REPORTS DEVELOPER 100 mg 100 mg, oral, Daily, First dose on Thu01/13/22 at 0900 Given 01/13/2022 9:34 AM REPORTS DEVELOPER 100 mg aspirin chewable tablet 243 mg Given 01/13/2022 2:27 PM REPORTS DEVELOPER 243 mg 243 mg, oral, Once, On Thu01/13/22 at 1430, For 1 dose, Preprocedure (CV) aspirin DR tablet 81 mg Given 01/14/2022 9:47 AM REPORTS DEVELOPER 81 mg 81 mg, oral, Daily, First dose on Thu01/13/22 at 0900, Swallow whole. Do NOT crush, chew, or split tablet. Given 01/13/2022 9:34 AM REPORTS DEVELOPER 81 mg atropine injection 0.5 mg 0.5 mg, intravenous, Every 5 min PRN, Symptomatic lucía ycardia with hypotension, Starting on Thu01/14/22 at 1316, For 4 doses, Postpro cedure (CV) bisacodyL suppository 10 mg (DULCOLAX) 10 mg, rectal, Daily PRN, constipation, Starting on 01/14/22 at 1316, Postprocedure (CV), PO route preferred. Constipation unrelieved by docusate sodium (COLACE) if ordered. If results needed w ithin 2 hours - give rectal suppository. clopidogreL tablet 75 mg (PLAVIX) Given 01/14/2022 9:47 AM REPORTS DEVELOPER 75 mg 75 mg, oral, Daily, First dose on Thu01/13/22 at 0900 Given 01/13/2022 9:34 AM REPORTS DEVELOPER 75 mg docusate sodium capsule 100 mg (COLACE) 100 mg, oral, 2 times daily PRN, constip ation, Starting on Thu01/14/22 at 1316, Postprocedure (CV), Do NOT crush or chew. fentaNYL injection 25 mcg (SUBLIMAZE) 25 mcg, intravenous, Once as needed, mod erate pain or score 4-6 of 10, severe pain or score 7-10 of 10, Until sheath remova l., Starting on 01/14/22 at 1316, For 1 dose, Postprocedure (CV) heparin (porcine) 100 Rate/Dose Change 01/13/2022 11:32 12 Units/kg /hr 9.62 mL/hr Units/mL in NaCl 0.45% AM REPORTS DEVELOPER 250 mL infusion 0-40 Units/kg/hr ? 80.2 kg (0-32.08 mL/hr), intravenous, Continuous, Starting on Thu01/12/22 at 2215, 25,000 Units in 250 mL, Intensity type: Moderate, Starting Dose (units/kg/hr): 12, Anti-Xa < 0.1: Adjust Dose (Units/kg/hr) by: 4, Anti-Xa < 0.1: Loading Dose (Units/kg): 60, Anti-Xa < 0.1: Repeat anti-Xa: 6 hours, Anti-Xa 0.1-0.19: Adjust Dose (Units/kg/hr) by: 2, Anti-Xa 0.1-0.19: Loading Dose (Units/kg): 30, Anti-Xa 0.1-0.19: Repeat anti-Xa: 6 hours, Anti-Xa 0.2-0.5: Adjust Dose (Units/kg/hr) by: 0, Anti-Xa 0.2-0.5: Repeat anti-Xa: 6 hours. If two consecutive therapeutic result, re-check next AM., Anti-Xa > 0.19: Loading Dose (Units/kg): 0, Anti-Xa 0.51-0.6: Adjust Dose (Units/kg/hr) by: -1, Anti-Xa 0.51-0.6: Repeat anti-Xa: 6 hours, Anti-Xa 0.61-0.9: Hold Infusion: Stop infusion for 1 hour, Anti-Xa 0.61-0.9: Adjust Dose (Units/kg/hr) by: -2, Anti-Xa 0.61-0.9: Repeat anti-Xa: 6 hours after Heparin resumed, Anti-Xa >= 0.91: Hold Infusion: Stop infusion for 2 hours, Anti-Xa >= 0.91: Adjust Dose (Units/kg/hr) by: -4, Anti-Xa >= 0.91: Repeat anti-Xa: 6 hours after Heparin resumed Rate/Dose Change 01/13/2022 6:30 AM REPORTS DEVELOPER 12 Units/kg/hr 9.62 mL/hr Rate/Dose Verify 01/13/2022 3:00 AM REPORTS DEVELOPER 12 Units/kg/hr 9.62 mL/hr insulin aspart U-100 injection 0-7 Units (NovoLOG FlexPen) 0-7 Units, subcutaneous, 3 times daily, First dose on Thu01/13/22 at 0800, Insulin Scale: Mild Correction Scale, 180 - 219: 2 units, 220 - 259: 3 units, 260 - 299: 4 units, 300 - 339: 5 units, 340 - 379: 6 units, 380 - 3 99: 7 units, Greater than 399: Call service writing Insulin orders insulin glargine injection Given 01/13/2022 1:47 AM REPORTS DEVELOPER 10 Units Left Lower Abdomen 10 Units 10 Units, subcutaneous, Once, On Thu01/12/22 at 2230, For 1 dose insulin glargine injection Given 01/13/2022 9:12 PM REPORTS DEVELOPER 11 Units Left Upper Abdomen 11 Units 11 Units, subcutaneous, Daily at bedtime, First dose on Thu01/13/22 at 2100 leflunomide tablet 20 mg (ARAVA) Given 01/14/2022 9:47 AM REPORTS DEVELOPER 20 mg 20 mg, oral, Daily, First dose on Thu01/13/22 at 0900 Given 01/13/2022 9:45 AM REPORTS DEVELOPER 20 mg levothyroxine tablet 75 mcg (SYNTHROID, Given 01/14/2022 6:24 AM REPORTS DEVELOPER 75 mcg LEVOTHROID) 75 mcg, oral, Daily before breakfast, First dose (after last modification) on Thu01/13/22 at 0700 Given 01/13/2022 7:09 AM REPORTS DEVELOPER 75 mcg LORazepam injection 1 mg (ATIVAN) 1 mg, intravenous, Once as needed, anxie ty, Starting on Thu01/14/22 at 1316, For 1 dose, Postprocedure (CV), Shortage on injection, use oral when possible For intravenous use, dilute with equal volume of 0.9% NS melatonin tablet 3 mg 3 mg, oral, Daily at bedtime, First dose on Thu at 2100 metoprolol tablet 12.5 mg (LOPRESSOR) Given 01/14/2022 9:47 AM REPORTS DEVELOPER 12.5 mg 12.5 mg, oral, 2 times daily, First dose on Thu01/12/22 at 2300 Given 01/13/2022 9:11 PM REPORTS DEVELOPER 12.5 mg Given 01/13/2022 9:34 AM REPORTS DEVELOPER 12.5 mg naloxone injection 0.2 mg (NARCAN) 0.2 mg, intravenous, As needed, respirat ory depression, Starting on Thu01/14/22 at 1316, Postprocedure (CV), For RASS Score -4 or less, respiratory rate of less than 8 breaths/min. Notify provider/service and rapid respo nse team (if available at institution). pantoprazole DR tablet 40 mg (PROTONIX) Given 01/14/2022 6:24 AM REPORTS DEVELOPER 40 mg 40 mg, oral, Daily before breakfast, First dose on Thu01/13/22 at 0700, Swallow whole. Do NOT crush, chew, or split tablet. Given 01/13/2022 7:10 AM REPORTS DEVELOPER 40 mg promethazine injection 6.25 mg (PHENERGA N) 6.25 mg, intravenous, Every 6 hours PRN, nausea, vomiting, Starting on Thu01/14/22 at 1316, Postprocedure (CV), RASS must b e -2 or higher to administer. Reassess for nausea/vomiting after at least 10 minutes. (order for antiemetic medication administration Ondansetron then Promethazine). sodium chloride 0.9 % injection 10 mL 10 mL, intravenous, As needed, line care, Starting on Thu01/12/22 at 2136, Peripheral Intravenous Catheter and Rapid Infusion Cat heter, prior to blood sampling, post blood transfusion or post blood samplin g sodium chloride 0.9 % injection 3 mL 3 mL, intravenous, As needed, line care, Starting on Thu01/12/22 at 2136, Prior to and following infusion and between multi ple consecutive infusions: sodium chloride 0.9 % injection sodium chloride 0.9 % injection 3 mL Given 01/14/2022 9:47 AM REPORTS DEVELOPER 3 mL 3 mL, intravenous, Every 12 hours scheduled, First dose on Thu01/13/22 at 0900, Peripheral Intravenous Catheter and Rapid Infusion Catheter, when no infusion to maintain patency Given 01/13/2022 9:12 PM REPORTS DEVELOPER 3 mL sulfur hexafluoride microspheres injection Given 01/14/2022 9:29 AM REPORTS DEVELOPER 2.5 mL (LUMASON) intravenous, As needed, contrast, Starting on Thu01/14/22 at 0929, Intraprocedure - Diagnostic, See protocol. Reconstitute each 25 mg vial with 5 mL NS. documented in this encounter Active and Recently Administered Medications Times are shown in REPORTS DEVELOPER. Scheduled Medication Order 01/12/2022 01/13/2022 01/14/2022 allopurinoL tablet 100 mg (ZYLOPRIM) 093 4 (Given - Provider: Sheila Ponce R.N.)1417 (APR Hold - Provider: Transfer Provider, Automatic - Reason: Patient not available)1657 ([facility] Unhold - Provider: Transfer Provider, Automatic) 0947 (Given - Provider: Elidia Orozco RSusan) 100 mg, oral, Daily, First dose on Thu01/13/22 at 0900 aspirin chewable tablet 243 mg (COMPLETED) 1427 (Given - Provider: Traci Alanis RJairoNJairo) 243 mg, oral, Once, On Thu01/13/22 at 1430, For 1 dose, Preproc edure (CV) aspirin DR tablet 81 mg 0934 (Given - Pr ovider: Sheila Ponce RSusan)1417 ([facility] Hold - Provider: Transfer Provider, Automatic - Reason: Patient not available)1657 ([facility] Unhold - Provider: Transfer Provider, Automatic) 0947 (Given - Provider: Elidia Orozco RSusan) 81 mg, oral, Daily, First dose on Thu at 0900, Swallow whole. Do NOT crush, chew, or split tablet. clopidogreL tablet 75 mg (PLAVIX) 0934 ( Given - Provider: Sheila Ponce R.N.)1417 ([facility] Hold - Provider: Transfer Provider, Automatic - Reason: Patient not available)1657 ([facility] Unhold - Provider: Transfer Provider, Automatic) 0947 (Given - Provider: Elidia Orozco RSusan) 75 mg, oral, Daily, First dose on Thu01/13/22 at 0900 insulin aspart U-100 injection 0-7 Units (NovoLOG FlexPen) 0939 (Not Given - Provider: Sheila Ponce R.N. - Reason: Order parameters not met)1314 (Not Given - Provider: Sheila Ponce R.N. - Reason: Order parameters not met) 0927 (Not Given - Provider: Elidia Orozco R.N. - Reason: Order parameters not met)1200 (Due) 0-7 Units, subcutaneous, 3 times daily, First dose on Thu01/13/22 at 0800, Insulin Scale: Mild Correction Scale, 180 - 219: 2 units, 220 - 259: 3 units, 260 - 299: 4 units, 300 - 339: 5 units, 340 - 37 1417 (APR Hold - Provider: Transfer Provider, Automatic - Reason: Patient not available)1657 ([facility] Unhold - Provider: Transfer Provider, Automatic)1756 (Not Given - Provider: Sheila Ponce R.N. - Reason: Order parameters not met) 9: 6 units, 380 - 399: 7 units, Greater than 399: Call service writing Insulin orders insulin glargine injection 10 Units (COMPLETED) 0147 (Given - Provider: Julienne Hutchins R.N.) 10 Units, subcutaneous, Once, On Thu01/12/22 at 2230, For 1 dos e insulin glargine injection 11 Units 2112 (Given - Provider: David Lacy R.N.) 11 Units, subcutaneous, Daily at bedtime, First dose on 12/18 at 2100 leflunomide tablet 20 mg (ARAVA) 0945 (G iven - Provider: Sheila Ponce R.N.)1417 (APR Hold - Provider: Transfer Provider, Automatic - Reason: Patient not available)1657 ([facility] Unhold - Provider: Transfer Provider, Automatic) 0947 (Given - Provider: Elidia Orozco R.N.) 20 mg, oral, Daily, First dose on Thu01/13/22 at 0900 levothyroxine tablet 75 mcg (SYNTHROID, LEVOTHROID) 0709 (Given - Provider: Julienne Hutchins R.N.)1417 ([facility] Hold - Provider: Transfer Provider, Automatic - Reason: Patient not available)1657 ([facility] Unhold - Provider: Transfer Provider, Automatic) 0624 (Given - Provider: David Lacy R .N.) 75 mcg, oral, Daily before breakfast, Fi rst dose (after last modification) on Thu01/13/22 at 0700 melatonin tablet 3 mg 3 mg, oral, Daily at bedtime, First dose on Thu01/14/22 at 2100 metoprolol tablet 12.5 mg (LOPRESSOR) 2333 (Given - Pr ovider: Radha Smith, R.N.) 0934 (Given - Provider: Sheila Ponce R.N.)1417 ([facility] Hold - Provider: Transfer Provider, Automatic - Reason: Patient not available)1656 ([facility] Unhold - Provider: Transfer Provider, Automatic)2111 (Given - Provider: David Lacy R.N.) 0947 (Given - Provider: Elidia frank RJairoN.) 12.5 mg, oral, 2 times daily, First dose on Thu01/12/22 at 2300 NaCl 0.9 % bolus 250 mL 1330 (Du e) 250 mL, intravenous, at 1,000 mL/hr, Adm inister over 15 Minutes, Once, On Thu01/14/22 at 1330, For 1 dose, Postprocedure (CV) pantoprazole DR tablet 40 mg (PROTONIX) 0710 (Given - Provider: Julienne Hutchins RJairoN.)1417 ([facility] Hold - Provider: Transfer Provider, Automatic - Reason: Patient not available)165 ([facility] Unhold - Provider: Transfer Provider, Automatic) 0624 (Given - Provider: David Lacy R .N.) 40 mg, oral, Daily before breakfast, Fir st dose on Thu01/13/22 at 0700, Swallow whole. Do NOT crush, chew, or split tablet. sodium chloride 0.9 % injection 3 mL 093 9 (Not Given - Provider: Sheila Ponce R.N. - Reason: Other - Comment: IV infusing)1417 ([facility] Hold - Provider: Transfer Provider, Automatic - Reason: Patient not available)165 ([facility] Unhold - Provider: Transfer Provider, Automatic) 0947 (Given - Provider: Elidia Orozco RJairoNJairo) 3 mL, intravenous, Every 12 hours schedu led, First dose on 01/13/22 at 0900, Peripheral Intravenous Catheter and Rapid Infusion Catheter, when no infusion to maintain patency 2111 (Given - Provider: David Lacy R JairoNJairo) Continuous Medication Order 01/12/2022 01/13/2022 01/14/2022 heparin (porcine) 100 Units/mL in NaCl 0.45% 250 mL in fusion (CANCELED) 2228 (New Bag - Provider: Radha Smith RJairoNJairo) 0200 (Rate/Dose Verify - Provider: Tam DuranNJairo)0300 (Rate/Dose Verify - Provider: Julienne Hutchins RJairoNJairo)0630 (Rate/Dose Change - Provider: Tam DuranNJairo)1132 (Rate/Dose Change - Provider: Sheila Ponce RJairoNJairo) 0-40 Units/kg/hr ? 80.2 kg (0-32.08 mL/hr), intravenous, Continuous, Starting on 01/12/22 at 2215, 25,000 Units in 250 mL, Intensity type: Moderate, Starting Dose (units/kg/hr): 12, Anti-Xa < 0. 1513 (Stopped - Provid er: Traci Alanis RJairoNJairo) 1: Adjust Dose (Units/kg/hr) by: 4, Anti -Xa < 0.1: Loading Dose (Units/kg): 60, Anti-Xa < 0.1: Repeat anti-Xa: 6 hours, Anti-Xa 0.1-0.19: Adjust Dose (Units/kg/hr) by: 2, Anti-Xa 0.1-0.19: Loading Dose (Units/kg): 30, Anti-Xa 0.1-0.19: Repeat anti-Xa: 6 hours, Anti-Xa 0.2- 0.5: Adjust Dose (Units/kg/hr) by: 0, Anti-Xa 0.2-0.5: Repeat anti-Xa: 6 hours. If two consecutive therapeutic result, re-malena ck next AM., Anti-Xa > 0.19: Loading Dos e (Units/kg): 0, Anti-Xa 0.51-0.6: Adjust Dose (Units/kg/hr) by: -1, Anti-Xa 0.51-0.6: Repeat anti-Xa: 6 hours, Anti-Xa 0.61-0.9: Hold Infusion: Stop infusion for 1 hour, Anti-Xa 0.61-0.9: Adjust Dos e (Units/kg/hr) by: -2, Anti-Xa 0.61- 0.9: Repeat anti-Xa: 6 hours after Heparin resumed, Anti-Xa >= 0.91: Hold Infusion: Stop infusion for 2 hours, Anti-Xa &gt ;= 0.91: Adjust Dose (Units/kg/hr) by: - 4, Anti-Xa >= 0.91: Repeat anti-Xa: 6 hours after Heparin resumed PRN Medication Order 01/12/2022 01/13/2022 01/14/2022 acetaminophen tablet 1,000 mg (TYLENOL) 1,000 mg, oral, 3 times daily PRN, mild pain or score 1-3 of 10, Starting on Thu01/14/22 at 1316, Postprocedure (CV) atropine injection 0.5 mg 0.5 mg, intravenous, Every 5 min PRN, Sy mptomatic bradycardia with hypotension, Starting on Thu01/14/22 at 1316, For 4 doses, Postprocedure (CV) bisacodyL suppository 10 mg (DULCOLAX) 10 mg, rectal, Daily PRN, constipation, Starting on Thu01/14/22 at 1316, Postprocedure (CV), PO route preferred. Constipation unrelieved by docusate sodium (COLACE) if ordered. If results needed within 2 hours - give rectal suppository. docusate sodium capsule 100 mg (COLACE) 100 mg, oral, 2 times daily PRN, constip ation, Starting on Thu01/14/22 at 1316, Postprocedure (CV), Do NOT crush or chew. fentaNYL injection (SUBLIMAZE) (CANCELED) 1540 (Given - Provider: Delmar Salmeron R.N.)1543 (Given - Provider: Delmar Salmeron R.N.)1606 (Given - Provider: Delmar Salmeron R.N.) As needed, Starting on Thu01/13/22 at 1540, Intraprocedure (CV) fentaNYL injection 25 mcg (SUBLIMAZE) 25 mcg, intravenous, Once as needed, mod erate pain or score 4-6 of 10, severe pain or score 7-10 of 10, Until sheath removal., Starting on Thu01/14/22 at 1316, For 1 dose, Postprocedure (CV) heparin (porcine) 1,000 unit/mL injection (CANCELED) 1540 (Given - Provider: Delmar Salmeron R.N.)1551 (Given - Provider: Delmar Salmeron R.N.)1606 (Given - Provider: Delmar Salmeron R.N.) As needed, Starting on Thu01/13/22 at 1540, Intraprocedure (CV) iohexoL 350 mg iodine/mL solution (OMNIPAQUE) (CANCELED) 1617 (Given - Provider: Suzanne BonillaBJairoSJairo) As needed, Starting on Thu01/13/22 at 1617, Intraprocedure (CV) lidocaine 10 mg/mL (1 %) injection (XYLOCAINE) (CANCELED) 1538 (Given - Provider: Annika Hankins M.D.) As needed, Starting on Thu01/13/22 at 1538, Intraprocedure (CV) LORazepam injection 1 mg (ATIVAN) 1 mg, intravenous, Once as needed, anxie ty, Starting on Thu01/14/22 at 1316, For 1 dose, Postprocedure (CV), Shortage on injection, use oral when possible For intravenous use, dilute with equal volume of 0.9% NS midazolam (PF) injection (VERSED) (CANCELED) 1540 (Given - Provider: Delmar Salmeron R.N.)1543 (Given - Provider: Delmar Salmeron R.N.)1606 (Given - Provider: Delmar Salmeron R.N.) As needed, Starting on Thu01/13/22 at 1540, Intraprocedure (CV) naloxone injection 0.2 mg (NARCAN) 0.2 mg, intravenous, As needed, respirat ory depression, Starting on Thu01/14/22 at 1316, Postprocedure (CV), For RASS Score -4 or less, respiratory rate of less than 8 breaths/min. Notify provider/serv ice and rapid response team (if available at institution). nitroglycerin in D5W 100 mcg/mL syringe (for intra-arterial use only) (CANCELED) 1606 (Given - Provider: Charlotte BonillaSJairo) As needed, Starting on Thu01/13/22 at 1606, Intraprocedure (CV) nitroglycerin SL tablet (NITROSTAT) (CANCELED) 1539 (Given - Provider: Delmar Salmeron R.N.) As needed, Starting on Thu01/13/22 at 1539, Intraprocedure (CV) promethazine injection 6.25 mg (PHENERGAN) 6.25 mg, intravenous, Every 6 hours PRN, nausea, vomiting, Starting on Thu01/14/22 at 1316, Postprocedure (CV), RASS must be -2 or higher to administer. Reassess for nausea/vomiting after at least 10 m inutes. (order for antiemetic medication administration Ondansetron then Promethazine). sodium chloride 0.9 % injection 10 mL 14 17 (APR Hold - Provider: Transfer Provider, Automatic - Reason: Patient not available)1657 ([facility] Unhold - Provider: Transfer Provider, Automatic) 10 mL, intravenous, As needed, line care , Starting on Thu01/12/22 at 2136, Peripheral Intravenous Catheter and Rapid Infusion Catheter, prior to blood sampling, post blood transfusion or post blood sampling sodium chloride 0.9 % injection 3 mL 141 7 (APR Hold - Provider: Transfer Provider, Automatic - Reason: Patient not available)1657 ([facility] Unhold - Provider: Transfer Provider, Automatic) 3 mL, intravenous, As needed, line care, Starting on Thu01/12/22 at 2136, Prior to and following infusion and between multiple consecutive infusions: sodium chloride 0.9 % injection sulfur hexafluoride microspheres injection (LUMASON) 0929 (Given - Provider: KATERYNA Bansal) intravenous, As needed, contrast, Starti ng on Thu01/14/22 at 0929, Intraprocedure - Diagnostic, See protocol. Reconstitute each 25 mg vial with 5 mL NS. documented in this encounter Additional Health Concerns Assessment Noted Time PHQ-9 Depression Total Score: 7 06/21/2014 9:20 AM CDT documented as of this encounter Care Teams Client Care Specialist Relationship Specialty Start Date End Date Elsewhere, Pcp PCP - General Internal Medicine 01/12/22 documented as of this encounter
--- OUTSIDE RECORDS SUMMARY | 2022-01-21 13:46 | XMS_ITS | Clinical Summary ---
:1945 Author Organization [facility] Address [address] [place] [address] Care Team Providers Name Role Phone Elsewhere, Pcp Primary Care Provider Unavailable Source Comments Patient records contain information from all sites at [facility]. For routine questions regarding patient records, call [phone] during business hours, M-F 8:00 AM - 5:00 PM Central Time. Record requests for emergency care only can be directed to [phone] at any time.[facility] Allergies Active Allergy Reactions Severity Noted Date Comments Amlodipine Hypotension 02/22/2021 Atorvastatin Other (see comments) 07/04/2021 Azathioprine Other (see comments) 07/29/2018 Azithromycin Other (see comments) 03/19/2010 Unknown reaction Colchicine Other (see comments) 11/13/2021 Bad for kidneys Lisinopril Other (see comments) Medium 07/29/2018 nightma res Metoprolol Other (see comments) 06/19/2020 Vivid n ightmares, unclear associa tion between medicat ion and symptom Olmesartan Other (see comments) 03/19/2010 Unknown reaction Rosuvastatin Other (see comments) 07/04/2021 Ewylgjb-Xdy-Kil Other (see comments) 01/05/2019 Into lerance to Statin Reductase Inhibitors Medications Medication Sig Dispensed Refills Start End Date Status Date ALPRAZolam (XANAX) Take 1 tablet by 0 Active 0.5 mg tablet mouth every 8 6 (eight) hours as needed for anxiety. leflunomide Take 20 mg by 0 Acti ve (ARAVA) 20 mg mouth daily. tablet blood sugar 0 Active diagnostic 9 (Accu-Chek Alison Plus test strp) strips BASAGLAR KWIKPEN Inject 22 Units 0 Active U-100 INSULIN 100 under the skin 9 unit/mL (3 mL) every morning. injection levothyroxine Take 25 mcg by 0 A ctive (SYNTHROID, mouth daily. 9 LEVOTHROID) 75 mcg tablet calcium Chew. 0 Active carbonate-vitamin D3 600 mg-10 mcg (400 unit) tablet,chewable nitroglycerin PLACE 1 TABLET 25 tablet 3 A ctive (NITROSTAT) 0.4 mg UNDER THE TONGUE 2 SL tablet EVERY 5 MINUTES IF NEEDED FOR UP TO 3 TIMES, IF NO RELIEF CALL 911 metFORMIN Take 1 tablet 90 tablet 3 06/27/19 Active (GLUCOPHAGE) 500 (500 mg total) 2 23 mg tablet by mouth daily with breakfast. Taking only 1 tablet daily clopidogreL Take 75 mg by 0 Acti ve (PLAVIX) 75 mg mouth daily. 2 tablet allopurinoL Take 200 mg by 0 Act marty (ZYLOPRIM) 100 mg mouth daily. 2 tablet furosemide (LASIX) Take 0.5 tablets 30 tablet 0 11/17 Active 20 mg (10 mg total) by 2 23 tabletIndications: mouth as Ischemic Heart directed. Take Chronic Disease, 0.5 tablet as Coronary Stent needed for Status Post, Pain swelling and Chest Atypical, shortness of Edema breath. Dexcom G6 Radiosonde Operator See Admin 0 A ctive misc Instructions. 2 pantoprazole Take 40 mg by 0 Act marty (PROTONIX) 40 mg mouth every 2 EC tablet morning before breakfast. abatacept Infuse 750 mg 0 Active (ORENCIA) 25 mg/mL into a venous injection catheter every 30 (thirty) days. melatonin 3 mg Take 1 tablet (3 30 tablet 2 Active tablet mg total) by 2 mouth at bedtime. metoprolol Take 0.5 tablets 30 tablet 2 Ac tive tartrate (12.5 mg total) 2 (LOPRESSOR) 25 mg by mouth 2 (two) tablet times a day. glipiZIDE Take 10 mg by 0 01/14/20 Discon tinued (for_GLUCOTROL) 5 mouth every 7 22 mg tablet morning before breakfast. ergocalciferol Take 50,000 0 01/14/20 Dis continued (DRISDOL) 50,000 Units by mouth 22 Unit capsule once a week. ferrous gluconate Take 38 mg by 0 01/14/20 Discontinued (FERGON) 324 mg mouth daily. 22 (38 mg iron) tablet clindamycin 0 01/14/20 Disconti nued (CLINDAGEL) 1 % 9 22 gel abatacept in NaCl Infuse into a 0 01/14/20 Discontinued 0.9% IVPB venous catheter. 22 dapagliflozin Take 1 tablet (5 30 tablet 11 01/14/20 Discontinued (FARXIGA) 5 mg mg total) by 0 22 tablet mouth daily. blood sugar USE DIRECTED 100 each 10 01/14/20 Di scontinued diagnostic strips TO TEST 1 TO 3 1 22 TIMES DAILY omeprazole 0 01/14/20 Discontin ued (PriLOSEC) [address] capsule UNABLE TO FIND Med Name: 0 01/14/20 Disco ntinued Trulicity 22 triamcinolone 0 01/14/20 Discon tinued (KENALOG) 0.1 % 2 22 cream dulaglutide INJECT 0.75 MG 0 01/14/20 Dis continued (Trulicity) 0.75 UNDER THE SKIN 2 22 mg/0.5 mL ONCE WEEKLY injection aspirin [address] Take 1 tablet 30 tablet 2 01/15/20 Discontinued tablet (81 mg total) by 2 22 (Re order) mouth daily. aspirin [address] Take 1 tablet 30 tablet 2 01/16/20 Discontinued tablet (81 mg total) by 2 22 (Th erapy mouth daily. complet ed) Antiplatelet per [facility] Trial. Please see Dr. Alexander's note dated 01/14/2022 for further details Active Problems Problem Noted Date Cataract 01/07/2022 Anxiety 01/07/2022 Other Specified Postprocedural States 01/07/2022 Appendectomy Status Post 01/07/2022 Localized Swelling Mass And Lump Neck 01/07/2022 Varicella 01/07/2022 Poliomyelitis Myelitis Personal History 01/07/2022 Hemorrhoidectomy Status Post 01/07/2022 Biopsy And Excision Lymph Node Status Post 01/07/2022 Osteoporosis 01/07/2022 Diabetes Mellitus NOS 03/13/2021 Venous Insufficiency Chronic Peripheral 06/05/2020 Noninfective Gastroenteritis And Colitis Unspecified 0 06/05/2020 Coronary Stent Status Post 12/15/2019 Presence Of Coronary Angioplasty Implant And Graft Sta tus Post 12/15/2019 Abnormal Liver Function Test 09/12/2019 Upper Abdominal Pain Unspecified 06/13/2019 Hyperlipidemia Mixed 03/17/2019 Chronic Kidney Disease (CKD), Stage 3b Glomerular Filt ration Rate (GFR) 30 08/27/2018 To 44 Hypertensive Chronic Kidney Disease (CKD) Stage 3b Isabelle merular Filtration 12/30/2017 Rate (GFR) 30 To 44 Edema 12/30/2017 Diarrhea 12/14/2017 Overview: Added automatically from request for cookie dozier [id number] Arthritis Rheumatoid 05/12/2017 Paresthesia 03/31/2017 Gout 07/28/2016 Ischemic Heart Chronic Disease 02/05/2015 Overview: Coronary Artery Disease (CAD) [place] Ves judith Atherosclerotic Heart Disease [place] Coronary Artery W ith Other Forms 02/05/2015 Angina Pectoris (Stable Angina/Angina Of Exertion) Overview: Formatting of this note might be differe nt from the original. Overview: Coronary Artery Disease (CAD) [place] Ves judith Other Specified Hypothyroidism 10/26/2014 Pain Cervical 10/19/2014 Other Postprocedural Complications And Disorders Of Ge nitourinary System 01/13/2014 Infection Urinary Tract Recurrent 01/13/2014 Bleeding Postmenopausal 11/10/2013 Postmenopausal Atrophic Vaginitis 08/09/2013 Diabetes Mellitus Type 2 08/07/2010 Osteoporosis 09/14/2002 Vertigo Vertigo Benign Positional Bilateral Vertigo Benign Paroxysmal Positional Right Resolved Problems Problem Noted Date Resolved Date Elevated Troponin 01/12/2022 01/14/2022 Non-ST Elevation Myocardial Infarction 01/12/2022 1 03/16/2021 Anemia 12/14/2017 01/14/2022 Overview: Added automatically from request for cookie dozier [id number] Encounters Date Type Specialty Care Team Description 01/15/2022 Documentation Cardiovascular Catherine, Tom Almonte M.D. 01/14/2022 Documentation Cardiovascular Devamani, Disease Lana J 01/13/2022 Surgery Cardiovascular Alkdaxali, CORONARY Disease Annika Moy, ANGIOGRAPHY Lee 01/12/2022 Hospital Encounter Gilberto Pedraza Elevated Troponin (Primary Dx); Chandrika Salas M.D. Non-ST Elevation Myocardial Infarction ( HCC); 01/14/2022 Manuel Percutaneous Tr ansarterial Coronary Angioplasty Status Post; Troy Rosas, Coronary Stent Status Post; Lee, Ph.D. Ischemic Heart Chronic Disease 01/12/2022 Emergency Emergency Medicine Reu, Martha Anderson, Non-ST Elevation Myocardial Infarction (HCC) (Primary Dx); P.A.-C. Pain Chest; Coronary Stent Status Post; Anemia; Chronic Kidney Disease (CKD), Stage 3 Unspecified (HCC) 01/07/2022 Orders Only Cardiovascular Sindy Baez J, R.N. 12/09/2021 Refill Cardiovascular Hofius, Med Refill Disease Lise Murray, R.NJairo 12/06/2021 Clinical Cardiovascular Kush, Neck Pain Communication Tom Lance M.D. 11/13/2021 Office Visit Cardiovascular Kush, Diabetes Samreen itus Type 2 (HCC) (Primary Dx); Tom Lance Coronary Stent Status Post; Lee Anemia; Pain Chest Atyp ical 11/11/2021 Clinical [...] Comments Blood Pressure 144/67 01/14/2022 12:45 PM LIBRARY TECHNICIAN Pulse 68 01/14/2022 12:45 PM LIBRARY TECHNICIAN Temperature 36.6 ??C (97.9 ??F) 01/14/2022 12:45 PM LIBRARY TECHNICIAN Respiratory Rate 16 01/14/2022 12:45 PM LIBRARY TECHNICIAN Oxygen Saturation 96% 01/14/2022 12:45 PM LIBRARY TECHNICIAN Inhaled Oxygen Concentration - - Weight 78.1 kg (172 lb 2.9 oz) 01/13/2022 7:19 AM LIBRARY TECHNICIAN Height 156 cm (5' 1.42) 01/12/2022 11:33 PM LIBRARY TECHNICIAN Body Mass Index 32.09 01/12/2022 11:33 PM LIBRARY TECHNICIAN Plan of Treatment Upcoming Encounters Date Type Specialty Care Team Description 01/22/2022 Office Visit Cardiovascular Disease Maritza Currie M.D. [facility] [place], [place] [phone] (Wo rk) Health Maintenance Due [...] for 12/12/2013, Additional thyroid function history exists Dilated Eye Exam 06/14/2021 06/14/2020, 07/18/2019, 02/24/2019, Additional history exists Hemoglobin A1C 04/15/2022 01/13/2022, 02/14/2021, 07/25/2020, Additional history exists Office Visit for Blood 11/13/2022 11/13/2021 Pressure Check / Re-check Creatinine Level 01/14/2023 01/14/2022, 01/13/2022, 01/12/2022, Additional history exists Potassium Level 01/14/2023 01/14/2022, 01/13/2022, 01/12/2022, Additional history exists Sodium Level 01/14/2023 01/14/2022, 01/13/2022, 01/12/2022, Additional history exists Colonoscopy Discontinued 01/03/2009 Colorectal Cancer Discontinued Screening FIT Discontinued 06/25/2014 Mammogram Discontinued 07/29/2016, 07/31/2015, 07/27/2015, Additional history exists Pneumococcal vaccine (65+ Completed 08/16/2019, 06/21/2014 , years) 01/28/2008 Influenza Vaccine Completed 12/16/2021, 11/09/2020, 01/17/2019, Additional history exists CT Colonography Discontinued Cologuard Discontinued HPV Vaccines Aged Out No longer eligib le based on patient 's age to complete this topic Medical Devices Implanted Type Area Go Cart Mechanic Device Shelf Model / Identifier Expiration Serial / Date Lot Premier 3.0 X 16 - Sorto [id number] Cardiac [place] Implanted: Qty: 1 on 01/26/2015 Stent Scientific Description: Device Go Cart Mechanic - [employer]. Device Status Text - [id number]. Stnt Synergy Xd De 3.00x32 - [id number] Cardiac N/A: [place] 10/02/2023 [id number] / Implanted: Qty: 1 on 01/13/2022 by Annika Santillan M.D. at [facility] Stent [employer] / [id number] Description: LAD Procedures Procedure Name Priority Date/Time Associated Comments Diagnosis GLUCOSE POCT, B Routine 01/14/2022 Results for 11:45 AM LIBRARY TECHNICIAN this procedure are in the results section. (TTE) 2D ECHO DOPPLER Routine 01/14/2022 9:49 Res ults for COLOR AND CONTRAST AM LIBRARY TECHNICIAN this proc edure are in the results section. [id number] GENOTYPE Routine 01/14/2022 8:47 Results for AM LIBRARY TECHNICIAN this procedure are in the results section. CBC WITHOUT Routine 01/14/2022 6:42 Results for DIFFERENTIAL, B AM LIBRARY TECHNICIAN this procedu re are in the results section. BASIC METABOLIC PANEL, Routine 01/14/2022 6:42 Re sults for S/P AM LIBRARY TECHNICIAN this procedure are in the results section. HEPARIN LEVEL ANTI-XA Routine 01/14/2022 6:42 Res ults for ASSAY, P AM LIBRARY TECHNICIAN this procedure are in the results section. GLUCOSE POCT, B Routine 01/13/2022 Results for 11:17 PM LIBRARY TECHNICIAN this procedure are in the results section. GLUCOSE POCT, B Routine 01/13/2022 6:33 Results f or PM LIBRARY TECHNICIAN this procedure are in the results section. GLUCOSE POCT, B Routine 01/13/2022 5:56 Results f or PM LIBRARY TECHNICIAN this procedure are in the results section. CARDIAC Routine 01/13/2022 4:20 Elevated Results for CATHETERIZATION PM LIBRARY TECHNICIAN Troponin this procedu re are in the results section. CARDIAC Routine 01/13/2022 4:20 Elevated Results for CATHETERIZATION PM LIBRARY TECHNICIAN Troponin this procedu re are in the results section. CARDIAC Routine 01/13/2022 4:20 Elevated Results for CATHETERIZATION PM LIBRARY TECHNICIAN Troponin this procedu re are in the results section. CARDIAC Routine 01/13/2022 4:20 Elevated Results for CATHETERIZATION PM LIBRARY TECHNICIAN Troponin this procedu re are in the results section. ACT, POCT, B Routine 01/13/2022 4:01 Results for PM LIBRARY TECHNICIAN this procedure are in the results section. ACT, POCT, B Routine 01/13/2022 3:50 Results for PM LIBRARY TECHNICIAN this procedure are in the results section. GLUCOSE POCT, B Routine 01/13/2022 Results for 11:44 AM LIBRARY TECHNICIAN this procedure are in the results section. HEPARIN LEVEL ANTI-XA Timed 01/13/2022 Result s for ASSAY, P 10:49 AM LIBRARY TECHNICIAN this procedure are in the results section. GLUCOSE POCT, B Routine 01/13/2022 8:01 Results f or AM LIBRARY TECHNICIAN this procedure are in the results section. HEPARIN LEVEL ANTI-XA Timed 01/13/2022 4:51 Res ults for ASSAY, P AM LIBRARY TECHNICIAN this procedure are in the results section. LIPID PANEL, S Routine 01/13/2022 4:51 Results fo r AM LIBRARY TECHNICIAN this procedure are in the results section. HEMOGLOBIN A1C, B Routine 01/13/2022 4:51 Results for AM LIBRARY TECHNICIAN this procedure are in the results section. NT-PRO B-TYPE Routine 01/13/2022 4:51 Results for NATRIURETIC PEPTIDE AM LIBRARY TECHNICIAN this pro cedure (BNP), S are in the results section. MAGNESIUM, S Routine 01/13/2022 4:51 Results for AM LIBRARY TECHNICIAN this procedure are in the results section. RENAL FUNCTION PANEL, Routine 01/13/2022 4:51 Res ults for S AM LIBRARY TECHNICIAN this procedure are in the results section. CBC WITHOUT Routine 01/13/2022 4:51 Results for DIFFERENTIAL, B AM LIBRARY TECHNICIAN this procedu re are in the results section. TYPE AND SCREEN Routine 01/13/2022 4:50 Results f or AM LIBRARY TECHNICIAN this procedure are in the results section. TROPONIN T, 5TH GEN, P Routine 01/13/2022 4:50 Re sults for AM LIBRARY TECHNICIAN this procedure are in the results section. GLUCOSE POCT, B Routine 01/12/2022 Results for 11:39 PM LIBRARY TECHNICIAN this procedure are in the results section. ADULT OXYGEN THERAPY Routine 01/12/2022 9:39 PM LIBRARY TECHNICIAN ADULT OXYGEN THERAPY Routine 01/12/2022 9:39 PM LIBRARY TECHNICIAN ACTIVATED PARTIAL Routine 01/12/2022 6:22 Results for THROMBOPLASTIN TIME PM LIBRARY TECHNICIAN this pro cedure (APTT), P are in the results section. TROPONIN T, 2H/6H, 5TH Timed 01/12/2022 Resul ts for GEN, P 11:02 AM LIBRARY TECHNICIAN this procedure are in the results section. DX CHEST AP OR PA AND RAD - Semiurgent 01/12/2022 9:19 Results for LATERAL 2 VIEWS (Fast; most ED AM LIBRARY TECHNICIAN this proce dure patients; some are in the inpatients) results section. TROPONIN T, BASELINE, STAT 01/12/2022 9:10 Res ults for 5TH GEN, P AM LIBRARY TECHNICIAN this procedure are in the results section. BASIC METABOLIC PANEL, STAT 01/12/2022 9:10 Re sults for S/P AM LIBRARY TECHNICIAN this procedure are in the results section. CBC WITH DIFFERENTIAL, STAT 01/12/2022 9:10 Re sults for B AM LIBRARY TECHNICIAN this procedure are in the results section. ECG STAT 01/12/2022 8:45 Results for AM LIBRARY TECHNICIAN this procedure are in the results section. OUTSIDE CT BODY Routine 10/24/2021 5:05 Results f or PM CDT this procedure are in the results section. OUTSIDE US Routine 10/24/2021 4:40 Results for PM CDT this procedure are in the results section. OUTSIDE DX CHEST Routine 10/24/2021 Results for 10:35 AM CDT this procedure are in the results section. from Last 3 Months Results (ABNORMAL) Glucose, POCT (01/14/2022 11:45 AM LIBRARY TECHNICIAN)Only the most recent of7 resultswithin the time period is included. Analysis Performed At Patho logist Time Signature Glucose, POCT, 246 (H) 70 - 140 01/14/2022 PCLX B mg/dL 11:47 AM LIBRARY TECHNICIAN Site Capillary 01/14/2022 PCLX 11:47 AM LIBRARY TECHNICIAN Last Intake > 4 hours 01/14/2022 PCLX 11:47 AM LIBRARY TECHNICIAN Specimen Anatomical Collection Method Collection Time Receive d Time (Source) Location / / Volume Laterality Blood 01/14/2022 11:45 01/14/2022 AM LIBRARY TECHNICIAN 11:47 AM LIBRARY TECHNICIAN Unknown Provider LAB POCT ORDERABLES-MANUAL Performing Organization Address City/State/ZIP Code Phon e Number POC [facility] [address] [place] [address] PCLX [facility] [place] [address] [place] POC [address] [facility] (TTE) 2D ECHO DOPPLER COLOR AND CONTRAST (01/14/2022 9:49 AM LIBRARY TECHNICIAN) [facility] Method Time Signature Ejection Fraction 57 MC [...] / / Volume Laterality 01/14/2022 8:05 AM LIBRARY TECHNICIAN Impressions 01/14/2022 12:16 PM LIBRARY TECHNICIAN Status post coronary artery stent implantation (LAD, [...] complete report, see the Order-L evel Documents. Narrative 01/14/2022 12:16 PM LIBRARY TECHNICIAN For the complete report, see the Order-Level Documents. Hemodynamics Heart Rate: 71 BPM Blood Pressure: 115 / 67 mmHg ECG: Sinus rhythm Final Impressions 1. Status post coronary artery stent imp lantation (LAD, 13-JAN-2022). 2. Normal left ventricular chamber size, calculated 2-D biplane volumetric ejection fraction 57%. 3. Focal hypokinesis of the anteroseptum seen on the contrast-enhanced images, may correspond to a septal mattress filler seen on coronary angiography. 4. Grade 1a/3 [...] original. For the complete report, see the Order-L evel Documents. Hemodynamics Heart Rate: 71 BPM Blood Pressure: 115 / 67 mmHg ECG: Sinus rhythm Final Impressions 1. Status post coronary artery stent imp lantation (LAD, 13-JAN-2022). 2. Normal left ventricular chamber size, calculated 2-D biplane volumetric ejection fraction 57%. 3. Focal hypokinesis of the anteroseptum seen on the contrast-enhanced images, may correspond to a septal mattress filler seen on coronary angiography. 4. Grade 1a/3 [...] P450 2C19 Genotype, Varies (01/14/2022 8:47 AM LIBRARY TECHNICIAN) Component Value Ref Test Analysis Performed Pathologis t Range Method Time At Signature [id number] Genotype 02/1601/15/2022 DTL 4:14 PM LIBRARY TECHNICIAN [id number] Phenotype Normal (extensive) 01/15/2022 DT L metabolizer 4:14 PM LIBRARY TECHNICIAN Method Genotyping is performed using a PCR-based 5'-nuclease 01/15/2022 DTL assay. Fluorescently labeled detection probes anneal to the 4:14 PM target DNA. PCR is used to amplify the segment of DNA that LIBRARY TECHNICIAN contains the polymorphism. If the detection probe is an exact match to the target DNA, the 5'-nuclease polymerase degrades the probe, the financial services technician dye is released from the effects of the quencher dye, and a fluorescent signal is detected. Genotypes are assigned based on the allele-specific fluorescent signals that are detected. (TaqMan SNP Genotyping Assays User Guide, [employer]) Disclaimer Targeted variant analysis was used to test for the pre sence 01/15/2022 DTL or absence of specific variants in the UGU1R10 gene:*2 4:14 PM (c.681G>A), *3 (c.636G>A), *4 (c.1A>G), *5 (c.1297C>T), *6 LIBRARY TECHNICIAN (c.395G>A), *7 (c.819+2T>A), *8 (c.358T>C), *9 (c.431G>A), *10 (c.680C>T), *17 (c.-806C>T), and *35 (c.332-23A>G in the absence of c.681G>A), based on GRCh37 NM_[id number]. If no detectable XOY8N97 variant is found, a presumed *1 allele is assigned. This method will not detect all variants that result in altered WKX2H82 activity. Therefore, absence of a detectable gene variant does not rule out the possibility that a patient has an altered MCG6E11 metabolism status due to other DQZ9B82 variants that cannot be detected with this method. Furthermore, when two or more gene variants are identified, the cis-trans status (whether the variants are on the same or opposite chromosomes) is not always known. In addition to a genetic basis for DKN7R79 altered enzymatic activity, JZW7Z54 enzyme activity can be inhibited by a [...] pre-transplant DNA specimen is recommended for testing. JOW3H52 genetic test results in patients who have undergone liver transplantation may not accurately reflect the patient's AYO2K02 status. This test was developed and its performance characteristics determined by [facility] in a manner consistent with CLIA requirements. This test has not been cleared or approved by the U.S. Food and Drug Administration. Reviewed by Gita Sanches 01/15/2022 CHRISSIE Hartman, Ph.D. 4:14 PM LIBRARY TECHNICIAN Interpretation With prodrugs that are activated by RTQ9A09, such as 01/15/2022 CHRISSIE clopidogrel, normal drug activation by OFO3R69 is expected 4:14 PM to occur. LIBRARY TECHNICIAN With drugs that are inactivated by JUI0U22, such as citalopram, normal inactivation is expected. Specimen Anatomical Collection Method Collection Time Receive d Time (Source) Location / / Volume Laterality Blood (Blood, 01/14/2022 8:47 AM 01/15/20 9:48 Venous) LIBRARY TECHNICIAN AM LIBRARY TECHNICIAN Narrative This result has an attachment that is no t available. Luis Alberto Bernardo M.D. LAB GENETIC TESTING Performing Organization Address [facility] Phon e Number [facility] - [address] [place], [place] [address] [place] [phone] Heparin Anti-Xa Assay (01/14/2022 6:42 AM LIBRARY TECHNICIAN)Only the most recent of3 results within the time period is included. P athologist Signature Heparin <0.10 IU/mL 01/14/2022 DT Anti-Xa, P 8:59 AM LIBRARY TECHNICIAN Comment: [facility] therapeutic range: ?? 0.30-0.70 IU/mL [...] (Blood, 01/14/2022 6:42 AM 01/15/20 7:14 Venous) LIBRARY TECHNICIAN AM LIBRARY TECHNICIAN Troy Jackson M.D., Ph.D. LAB BLOOD NON ADD-ON Performing Organization Address City/[facility] Phon e Number [facility] - [address] [place], [place] [address] [place] [address] (ABNORMAL) CBC without Differential (01/14/2022 6:42 AM LIBRARY TECHNICIAN)Only the most recent of2 resultswithin the time period is included. Patholo gist Method Time Signature Hemoglobin 10.2 (L) 11.6 - 01/14/2022 DTL 15.0 g/dL 7:14 AM LIBRARY TECHNICIAN Hematocrit 33.0 (L) 35.5 - 01/14/2022 DTL 44.9 % 7:14 AM LIBRARY TECHNICIAN Erythrocytes 3.48 (L) 3.92 - 01/14/2022 DTL 5.13 7:14 AM LIBRARY TECHNICIAN x10(12)/L MCV 94.8 78.2 - 01/14/2022 DTL 97.9 fL 7:14 AM LIBRARY TECHNICIAN RBC Distrib Width 14.6 12.2 - 01/14/2022 DTL 16.1 % 7:14 AM LIBRARY TECHNICIAN Platelet Count 209 157 - 371 01/14/2022 DTL x10(9)/L 7:14 AM LIBRARY TECHNICIAN Leukocytes 8.5 3.4 - 9.6 01/14/2022 DTL x10(9)/L 7:14 AM LIBRARY TECHNICIAN Specimen Anatomical Collection Method Collection Time Receive d Time (Source) Location / / Volume Laterality Blood (Blood, 01/14/2022 6:42 AM 01/15/20 7:03 Venous) LIBRARY TECHNICIAN AM LIBRARY TECHNICIAN Troy Jackson M.D., Ph.D. LAB BLOOD ADD-ON Performing Organization Address City/State/ZIP Code Phon e Number [facility] - [address] [place] [phone] [facility] [address] Laboratories-[facility] [address] [facility] (ABNORMAL) Basic Metabolic Panel (01/14/2022 6:42 AM LIBRARY TECHNICIAN)Only the most recent of 2 resultswithin the time period is included. Analysis Performed At Patho logist Time Signature Potassium, S 4.0 3.6 - 5.2 01/14/2022 DTL mmol/L 7:30 AM LIBRARY TECHNICIAN Sodium, S 143 135 - 145 01/14/2022 DTL mmol/L 7:30 AM LIBRARY TECHNICIAN Chloride, S 109 (H) 98 - 107 01/14/2022 DTL mmol/L 7:30 AM LIBRARY TECHNICIAN Bicarbonate, S 23 22 - 29 01/14/2022 DTL mmol/L 7:30 AM LIBRARY TECHNICIAN Anion Gap 11 7 - 15 01/14/2022 DTL 7:30 AM LIBRARY TECHNICIAN BUN (Blood Urea 24 (H) 6 - 21 01/14/2022 DTL Nitrogen), S mg/dL 7:30 AM LIBRARY TECHNICIAN Creatinine 1.49 (H) 0.59 - 01/14/2022 DTL 1.04 mg/dL 7:30 AM LIBRARY TECHNICIAN Estimated GFR 36 (L) >=60 01/14/2022 DTL (eGFR) mL/min/BSA 7:30 AM LIBRARY TECHNICIAN Comment: Estimated GFR calculated using the 2020 CKD_EPI creatinine equation. Calcium, Total, S 9.2 8.8 - 10.2 mg/dL 01/14/2022 7:30 AM LIBRARY TECHNICIAN DTL Glucose, S 134 70 - 140 mg/dL 01/14/2022 7:30 AM LIBRARY TECHNICIAN D TL Specimen Anatomical Collection Method Collection Time Receive d Time (Source) Location / / Volume Laterality Blood (Blood, 01/14/2022 6:42 AM 01/15/20 7:14 Venous) LIBRARY TECHNICIAN AM LIBRARY TECHNICIAN Troy Jackson M.D., Ph.D. LAB BLOOD ADD-ON Performing Organization Address City/State/ZIP Code Phon e Number [facility] - [address] [place], [place] [address] [facility] [place] [address] [facility] [address] CORONARY ANGIOGRAPHY, LEFT HEART CATHETERIZATION, PERCUTANEOUS CORONARY ANGIOPLASTY, STENT PLACEMENT(01/13/2022 4:20 PM LIBRARY TECHNICIAN) Anatomical Region Laterality Modality X-Ray Angiography Specimen (Source) Anatomical Collection Method Collection Time Re ceived Time Location / / Volume Laterality 01/13/2022 3:36 PM LIBRARY TECHNICIAN Narrative 01/14/2022 1:47 PM LIBRARY TECHNICIAN For the complete report, see the Order-L [...] (Activated Clotting Time), POCT (01/13/2022 4:01 PM LIBRARY TECHNICIAN)Only the most recent of2 resultswithin the time period is included. P athologist Signature Activated 239 (H) 84 - 139 01/13/2022 PCSM Clotting Time, sec 4:06 PM LIBRARY TECHNICIAN POCT Specimen Anatomical Collection Method Collection Time Receive d Time (Source) Location / / Volume Laterality Blood 01/13/2022 4:01 PM 4:06 LIBRARY TECHNICIAN PM LIBRARY TECHNICIAN Unknown Provider LAB POCT ORDERABLES - DEVICE Performing Organization Address City/State/ZIP Code Phon e Number POC [facility] [address] [place], [place] [address] LABS PCSM [facility] [place] [address] [place] POC [address] (ABNORMAL) Lipid Panel (01/13/2022 4:51 AM LIBRARY TECHNICIAN) P athologist Signature Triglycerides 346 (H) mg/dL 01/13/2022 DTL 7:12 AM LIBRARY TECHNICIAN Comment: ----REFERENCE VALUE---- Normal: <150 mg/dL Borderline High: 150-199 mg/dL High: 200-499 mg/dL Very High: > or =500 mg/dL Cholesterol, Total 245 (H) mg/dL 01/13/2022 7:12 AM CS T DTL Comment: ----REFERENCE VALUE---- Desirable: < 200 mg/dL Borderline High: 200 - 239 mg/dL High: > or = 240 mg/dL Cholesterol, LDL, Calculated 136 (H) mg/dL 01/13/2022 7:12 AM LIBRARY TECHNICIAN DTL Comment: ----REFERENCE VALUE---- Desirable: <100 mg/dL Above Desirable: 100-129 mg/dL Borderline High: 130-159 mg/dL High: 160-189 mg/dL Very High: >=190 mg/dL ----ADDITIONAL INFORMATION---- LDL cholesterol calculated using the Hills/NIH equation. Cholesterol, HDL, S 46 (L) >=50 mg/dL 01/13/2022 7:12 AM LIBRARY TECHNICIAN DTL Cholesterol, Non-HDL, Calculated 199 (H) mg/dL 022 7:12 AM LIBRARY TECHNICIAN DTL Comment: ----REFERENCE VALUE---- Desirable: <130 mg/dL Above Desirable: 130-159 mg/dL Borderline High: 160-189 mg/dL High: 190-219 mg/dL Very High: > or =220 mg/dL Fasting (8 HR or more) No 01/13/2022 6:14 A M LIBRARY TECHNICIAN DTL Specimen Anatomical Collection Method Collection Time Receive d Time (Source) Location / / Volume Laterality Blood (Blood, 01/13/2022 4:51 AM 01/14/20 6:14 Venous) LIBRARY TECHNICIAN AM LIBRARY TECHNICIAN Troy Jackson M.D., Ph.D. LAB BLOOD ADD-ON Performing Organization Address City/State/ZIP Code Phon e Number [facility] - [address] [place], [place] [address] [facility] [place] [address] [facility] [address] [facility] (ABNORMAL) Renal Function Panel (01/13/2022 4:51 AM LIBRARY TECHNICIAN) Analysis Performed At Patho logist Time Signature Potassium, S 4.1 3.6 - 5.2 01/13/2022 DTL mmol/L 7:12 AM LIBRARY TECHNICIAN Sodium, S 144 135 - 145 01/13/2022 DTL mmol/L 7:12 AM LIBRARY TECHNICIAN Chloride, S 109 (H) 98 - 107 01/13/2022 DTL mmol/L 7:12 AM LIBRARY TECHNICIAN Bicarbonate, S 22 22 - 29 01/13/2022 DTL mmol/L 7:12 AM LIBRARY TECHNICIAN Anion Gap 13 7 - 15 01/13/2022 DTL 7:12 AM LIBRARY TECHNICIAN BUN (Blood Urea 27 (H) 6 - 21 01/13/2022 DTL Nitrogen), S mg/dL 7:12 AM LIBRARY TECHNICIAN Creatinine 1.56 (H) 0.59 - 01/13/2022 DTL 1.04 mg/dL 7:12 AM LIBRARY TECHNICIAN Estimated GFR 34 (L) >=60 01/13/2022 DTL (eGFR) mL/min/BSA 7:12 AM LIBRARY TECHNICIAN Comment: Estimated GFR calculated using the 2020 CKD_EPI creatinine equation. Calcium, Total, S 9.3 8.8 - 10.2 mg/dL 01/13/2022 7:12 AM LIBRARY TECHNICIAN DTL Glucose, S 152 (H) 70 - 140 mg/dL 01/13/2022 7:12 AM LIBRARY TECHNICIAN D TL Albumin, S 3.8 3.5 - 5.0 g/dL 01/13/2022 7:12 AM LIBRARY TECHNICIAN D TL Phosphorus (Inorganic), S 3.4 2.5 - 4.5 mg/dL 01/14/20 7:12 AM LIBRARY TECHNICIAN DTL Specimen Anatomical Collection Method Collection Time Receive d Time (Source) Location / / Volume Laterality Blood (Blood, 01/13/2022 4:51 AM 01/14/20 6:14 Venous) LIBRARY TECHNICIAN AM LIBRARY TECHNICIAN Troy Jackson M.D., Ph.D. LAB BLOOD ADD-ON Performing Organization Address City/State/ZIP Code Phon e Number [facility] - [address] [place], [place] [address] [facility] [place] [address] [facility] [address] (ABNORMAL) NT-Pro B-Type Natriuretic Peptide (BNP) (01/13/2022 4:51 AM LIBRARY TECHNICIAN) P athologist Signature NT-Pro BNP 1630 (H) <=540 pg/mL 01/13/2022 DTL 7:12 AM LIBRARY TECHNICIAN Comment: NT-proBNP values less than 300 pg/mL [...] (Blood, 01/13/2022 4:51 AM 01/14/20 6:14 Venous) LIBRARY TECHNICIAN AM LIBRARY TECHNICIAN Troy Jackson M.D., Ph.D. LAB BLOOD ADD-ON Performing Organization Address City/State/ZIP Code Phon e Number [facility] - [address] [facility] Magnesium (01/13/2022 4:51 AM LIBRARY TECHNICIAN) P athologist Signature Magnesium, S 1.9 1.7 - 2.3 01/13/2022 DTL mg/dL 7:12 AM LIBRARY TECHNICIAN Specimen Anatomical Collection Method Collection Time Receive d Time (Source) Location / / Volume Laterality Blood (Blood, 01/13/2022 4:51 AM 01/14/20 6:14 Venous) LIBRARY TECHNICIAN AM LIBRARY TECHNICIAN Troy Jackson M.D., Ph.D. LAB BLOOD ADD-ON Performing Organization Address City/[facility]/ZIP Code Phon e Number [facility] - [address] [place] [address] (ABNORMAL) Hemoglobin A1c (01/13/2022 4:51 AM LIBRARY TECHNICIAN) P athologist Signature Hemoglobin A1c, 8.8 (H) 4.0 - 5.6 01/13/2022 DT B % 6:34 AM LIBRARY TECHNICIAN Comment: Hemoglobin A1c values greater than or eq ual to 6.5 percent are diagnostic for diabetes mellitus. ?? Diagnosis should be confirmed by repeat testing. ??In diabet ic patients, HbA1c goals should be discussed with healthcar e provider. Specimen Anatomical Collection Method Collection Time Receive d Time (Source) Location / / Volume Laterality Blood (Blood, 01/13/2022 4:51 AM 01/14/20 22 5:37 Venous) LIBRARY TECHNICIAN AM LIBRARY TECHNICIAN Troy Jackson M.D., Ph.D. LAB BLOOD ADD-ON Performing Organization Address City/[facility]/ZIP Code Phon e Number [facility] - [address] Type and Screen (with reflex Antibody ID) (01/13/2022 4:50 AM LIBRARY TECHNICIAN) [facility] gist Method Time Signature ABORh A Neg Not 01/13/2022 STRM applicable 5:50 AM LIBRARY TECHNICIAN Antibody Negative Negative 01/13/2022 STRM Screen 6:02 AM LIBRARY TECHNICIAN Type & Screen 01/16/2022 01/13/2022 STRM Expiration 23:59 5:50 AM LIBRARY TECHNICIAN Testing [place] DEFAULT 01/13/2022 STRM Location 5:24 AM LIBRARY TECHNICIAN Specimen Anatomical Collection Method Collection Time Receive d Time (Source) Location / / Volume Laterality Blood (Blood, 01/13/2022 4:50 AM 01/14/20 5:24 Venous) LIBRARY TECHNICIAN AM LIBRARY TECHNICIAN Troy Jackson M.D., Ph.D. LAB BLOOD BANK TEST ORD ERABLES Performing Organization Address City/[facility] Phon e Number [facility] - [address] [place], [place] [address] [place] [address] (ABNORMAL) Troponin T, 5th Generation (01/13/2022 4:50 AM LIBRARY TECHNICIAN) athologist [facility] Troponin T, 107 (H) <=10 ng/L 01/13/2022 [facility] 5th gen 5:14 AM LIBRARY TECHNICIAN Comment: Consider acute myocardial injur y Specimen Anatomical Collection Method Collection Time Receive d Time (Source) Location / / Volume Laterality Blood (Blood, 01/13/2022 4:50 AM 01/14/20 4:57 Venous) LIBRARY TECHNICIAN AM LIBRARY TECHNICIAN Troy Jackson M.D., Ph.D. LAB BLOOD ADD-ON Performing Organization Address City/[facility] Code Phon e Number [facility] - [address] [place], [place] [address] [place] [address] Laboratories-[place] [address] [address] [facility] APTT (Activated Partial Thromboplastin Time) (01/12/2022 6:22 PM LIBRARY TECHNICIAN) athologist [facility] Activated 33 25 - 37 sec 01/12/2022 CNFL Partial 6:48 PM LIBRARY TECHNICIAN Thrombopl Time, P Specimen Anatomical Collection Method Collection Time Receive d Time (Source) Location / / Volume Laterality Blood 01/12/2022 6:22 PM 6:36 LIBRARY TECHNICIAN PM LIBRARY TECHNICIAN Martha Kidd P.A.-C. LAB BLOOD ADD-ON Performing Organization Address City/State/ZIP Code Phon e Number [facility]- [address] [place] [address] [place] [address] [place] [address] [address] (ABNORMAL) Troponin T, 2H/6H, 5th Gen (01/12/2022 11:02 AM LIBRARY TECHNICIAN) P athologist Signature Troponin T, 2 21 (H) <=10 ng/L 01/12/2022 CNFL hr, 5th gen 11:36 AM LIBRARY TECHNICIAN Comment: Biotin has been identified by the leti carr as a potential interfering substance. Higher concentrations of biotin may be found in multivitamins, camacho ir/nail supplements, and workout supplements. If the result d oes not match clinical observations, repeat testing af ter patient refrains from the use of supplements for at least 12 hours. 2H Delta 7 ng/L 01/12/2022 11:36 AM LIBRARY TECHNICIAN CNFL 2H Delta Interp Indeterminate 01/12/2022 11:36 AM LIBRARY TECHNICIAN CNFL Comment: Indeterminate delta, additional sample suggested Troponin T, 6 hr, 5th gen 47 (H) <=10 ng/L 01/12/2022 3:2 8 PM LIBRARY TECHNICIAN CNFL Comment: Biotin has been identified by the leti fullerr as a potential interfering substance. Higher concentrations of biotin may be found in multivitamins, camacho ir/nail supplements, and workout supplements. If the result d oes not match clinical observations, repeat testing af ter patient refrains from the use of supplements for at least 12 hours. 6H Delta 33 ng/L 01/12/2022 3:28 PM LIBRARY TECHNICIAN CNFL 6H Delta Interp Changing 01/12/2022 3:28 PM LIBRARY TECHNICIAN C NFL Comment: Evaluate for acute myocardial i njury Specimen Anatomical Collection Method Collection Time Receive d Time (Source) Location / / Volume Laterality Blood (Blood, 01/12/2022 11:02 01/12/2022 Venous) AM LIBRARY TECHNICIAN 11:05 AM LIBRARY TECHNICIAN Narrative [facility] - 01/12/2022 3:28 PM LIBRARY TECHNICIAN Specimen Information: Specimen ID: [id number] Specimen Type: Blood Specimen Collection Start Date: 11:02 AM Specimen Received Date: 01/12/2022 11:0 5 AM Specimen ID: [id number] Specimen Type: Blood Specimen Collection Start Date: ??3:05 PM Specimen Received Date: 01/12/2022 ??3: 07 PM Martha Kidd P.A.-C. LAB BLOOD TROPONIN Performing Organization Address City/State/ZIP Code Phon e Number [facility]- [address] [place] [address] [place] [address] [place] [address] DX Chest AP or PA and Lateral 2 Views (01/12/2022 9:19 AM LIBRARY TECHNICIAN) Anatomical Region Laterality Modality Chest, Thoracic RST LOS, Thoracic ARZ LOS, Thoracic N/A Digital Radiography FLA LOS Specimen (Source) Anatomical Collection Method Collection Time Re ceived Time Location / / Volume Laterality 01/12/2022 9:44 AM LIBRARY TECHNICIAN Impressions 01/12/2022 9:45 AM LIBRARY TECHNICIAN Comparison 10/24/2021. Cardiac silhouette is normal in size. Prominent left epicardial fat pad. No focal consolidation to suggest pneumo natty. No significant pleural effusion or pulmo nary edema. There is no pneumothorax. Narrative 01/12/2022 9:45 AM LIBRARY TECHNICIAN EXAM: DX CHEST AP OR PA AND LATERAL 2 VIEWS Procedure Note Leanna Hahn M.D. - 01/12/2022Formatt ing of this note might be different from the original. EXAM: DX CHEST AP OR PA AND LATERAL 2 EWS IMPRESSION: Comparison 10/24/2021. Cardiac silhouette is normal in size. Prominent left epicardial fat pad. No focal consolidation to suggest pneumo natty. No significant pleural effusion or pulmo nary edema. There is no pneumothorax. Martha Kidd P.A.-C. IMG DIAGNOSTIC IMAGING PROCE DURES (ABNORMAL) Troponin T, Baseline, 5th gen (01/12/2022 9:10 AM LIBRARY TECHNICIAN) P athologist Signature Troponin T, 14 (H) <=10 ng/L 01/12/2022 CNFL Baseline, 5th 9:34 AM LIBRARY TECHNICIAN gen Comment: Biotin has been identified by the leti carr as a potential interfering substance. Higher concentrations of biotin may be found in multivitamins, camacho ir/nail supplements, and workout supplements. If the result d oes not match clinical observations, repeat testing af ter patient refrains from the use of supplements for at least 12 hours. Specimen Anatomical Collection Method Collection Time Receive d Time (Source) Location / / Volume Laterality Blood (Blood, 01/12/2022 9:10 AM 01/13/20 9:12 Venous) LIBRARY TECHNICIAN AM LIBRARY TECHNICIAN Martha Kidd P.A.-C. LAB BLOOD TROPONIN Performing Organization Address City/State/ZIP Code Phon e Number [facility]- [address] [place] [address] [place] [address] [address] (ABNORMAL) CBC with Differential, Blood (01/12/2022 9:10 AM LIBRARY TECHNICIAN) [facility] gist Method Time Signature Hemoglobin 10.0 (L) 11.6 - 01/12/2022 CNFL 15.0 g/dL 9:21 AM LIBRARY TECHNICIAN Hematocrit 31.5 (L) 35.5 - 01/12/2022 CNFL 44.9 % 9:21 AM LIBRARY TECHNICIAN Erythrocytes 3.41 (L) 3.92 - 01/12/2022 CNFL 5.13 9:21 AM LIBRARY TECHNICIAN x10(12)/L MCV 92.4 78.2 - 01/12/2022 CNFL 97.9 fL 9:21 AM LIBRARY TECHNICIAN RBC Distrib Width 14.1 12.2 - 01/12/2022 CNFL 16.1 % 9:21 AM LIBRARY TECHNICIAN Platelet Count 185 157 - 371 01/12/2022 CNFL x10(9)/L 9:21 AM LIBRARY TECHNICIAN Leukocytes 9.0 3.4 - 9.6 01/12/2022 CNFL x10(9)/L 9:21 AM LIBRARY TECHNICIAN Neutrophils 6.98 (H) 1.56 - 01/12/2022 CNFL 6.45 9:21 AM LIBRARY TECHNICIAN x10(9)/L Lymphocytes 0.93 (L) 0.95 - 01/12/2022 CNFL 3.07 9:21 AM LIBRARY TECHNICIAN x10(9)/L Monocytes 0.58 0.26 - 01/12/2022 CNFL 0.81 9:21 AM LIBRARY TECHNICIAN x10(9)/L Eosinophils 0.40 0.03 - 01/12/2022 CNFL 0.48 9:21 AM LIBRARY TECHNICIAN x10(9)/L Basophils 0.05 0.01 - 01/12/2022 CNFL 0.08 9:21 AM LIBRARY TECHNICIAN x10(9)/L Specimen Anatomical Collection Method Collection Time Receive d Time (Source) Location / / Volume Laterality Blood (Blood, 01/12/2022 9:10 AM 01/13/20 9:12 Venous) LIBRARY TECHNICIAN AM LIBRARY TECHNICIAN Martha Kidd P.A.-C. LAB BLOOD ADD-ON Performing Organization Address City/State/ZIP Code Phon e Number [facility]- [address] [place] [address] [place] [address] ECG 12 Lead (01/12/2022 8:45 AM LIBRARY TECHNICIAN) P athologist Signature Ventricular Rate 86 BPM MUSE ECG/Min [place] Interval 152 ms MUSE QRSD Interval 78 ms MUSE QT Interval 378 ms MUSE QTC Interval 452 ms MUSE P [place] 61 degrees MUSE R [place] -27 degrees MUSE T Wave [place] 89 degrees MUSE Specimen Anatomical Collection Method Collection Time Receive d Time (Source) Location / / Volume Laterality 01/12/2022 8:45 AM 8:57 LIBRARY TECHNICIAN AM LIBRARY TECHNICIAN Impressions MUSE - 01/12/2022 8:57 AM LIBRARY TECHNICIAN Normal sinus rhythm Nonspecific ST and T wave abnormality When compared with ECG of 27-JUL-2018 10 :08, No significant change was found Reviewed by KATERYNA Ulloa Narrative This result has an attachment that is no t available. Procedure Note Kaylee Soria M.D., Ph.D. - 01/12/2022Fo rmatting of this note might be different from the original. IMPRESSION: Normal sinus rhythm Nonspecific ST and T wave abnormality When compared with ECG of 27-JUL-2018 10 :08, No significant change was found Reviewed by KATERYNA Ulloa Martha L Reu P.A.-C. ECG ORDERABLES Performing Organization Address [facility] Code Phon e Number MUSE MUSE NA CT ANGIO CHEST PE PROTOCOL-Outside CT Body (10/24/2021 5:05 PM CDT) Specimen (Source) Anatomical Location Collection Method / Collectio n Time Received Time / Laterality Volume Narrative [facility] - 10/29/2021 11:36 AM CDT This order [...] System IMG CT PROCEDURES Performing Organization Address [facility] Code Phon e Number IIMS IIMS NA US venous LE BI-Outside US (10/24/2021 4:40 PM CDT) Specimen (Source) Anatomical Location Collection Method / Collectio n Time Received Time / Laterality Volume Narrative [facility] - 10/29/2021 11:11 AM CDT This order [...] System IMG US PROCEDURES Performing Organization Address [facility] Code Phon e Number IIMS IIMS NA XR CHEST 2V-Outside Chest Xray (10/24/2021 10:35 AM CDT) Specimen (Source) Anatomical Location Collection Method / Collectio n Time Received Time / Laterality Volume Narrative [facility] - 10/29/2021 11:11 AM CDT This order [...] DIAGNOSTIC IMAGING PROCE DURES Performing Organization Address [facility] Code Phon e Number IIMS IIMS NA from Last 3 Months Insurance Payer Benefit Plan Subscriber ID Effective Phone Address Typ e / Group Dates MEDICARE MEDICARE A [id number] 2010-Pres [address] [place] [address] [employer]UE [employer] BCBS [place] [id number] 2016-Pres [phone] [address] X Cost Share BLUE SHIELD BLUE [place]ST ent [phone] [place] [address] Advance Directives For more information, please contact: [phone] Latest Code Status on File Code Status Date Activated Date Inactivated Comments Full Code 01/14/2022 1:19 PM 01/14/2022 4:37 PM Question Answer Comments Full Code: Discussed Code Status History Code Status Date Activated Date Inactivated Comments Full Code 01/12/2022 9:39 PM 01/14/2022 1:19 PM Question Answer Comments Full Code: Discussed Care Teams Java Tech Lead Relationship Specialty Start Date End Date Elsewhere, Pcp PCP - General Internal Medicine 01/12/22
--- OUTSIDE RECORDS SUMMARY | 2022-01-21 13:47 | XMS_ITS | Encounter Summary ---
:1945 Author Organization [facility] Address [address] [place] [address] Care Team Providers Name Role Phone Unavailable Primary Care Provider Unavailable Reason for Visit Reason Comments Med Refill Encounter Details Date Type Department Care Team Description 12/09/2021 Refill Department of Cardiovascular Lise Boo R.N. Med Refill Diseases in [address] [phone] Social History Tobacco Use Types Packs/Day Years [...] Cardiovascular Disease Maritza Currie M.D. [address] [place], [place] [phone] (Wo rk) documented as of this encounter Visit Diagnoses Diagnosis Ischemic Heart Chronic Disease - Primary Coronary Stent Status Post Pain Chest Atypical Edema documented in this encounter Additional Health Concerns Assessment Noted Time PHQ-9 Depression Total Score: 7 06/21/2014 9:20 AM CDT documented as of this encounter
--- OUTSIDE RECORDS SUMMARY | 2022-01-21 13:47 | XMS_ITS | Encounter Summary ---
:1945 Author Organization [facility] Address [address] [place] [address] Care Team Providers Name Role Phone Elsewhere, Pcp Primary Care Provider Unavailable Encounter Details Date Type Department Care Team Description 01/07/2022 Orders Only Department of Cardiovascular Joyce Baez, Diseases in [facility] [address] [place] [address] [place] [phone] Social History Tobacco Use Types Packs/Day Years [...] Cardiovascular Disease Maritza Currie M.D. [address] [place], [place] [phone] (Wo rk) documented as of this encounter Visit Diagnoses Not on filedocumented in this encounter Additional Health Concerns Assessment Noted Time PHQ-9 Depression Total Score: 7 06/21/2014 9:20 AM CDT documented as of this encounter Care Teams Enamel Machine Operator Relationship Specialty Start Date End Date Elsewhere, Pcp PCP - General Internal Medicine 01/12/22 documented as of this encounter
--- OUTSIDE RECORDS SUMMARY | 2022-01-21 13:47 | XMS_ITS | Encounter Summary ---
:1945 Author Organization [facility] Address [address] [place] [address] Care Team Providers Name Role Phone Unavailable Primary Care Provider Unavailable Reason for Visit Reason Comments Infection Encounter Details Date Type Department Care Team Description 08/13/2021 Nurse Triage Department of [facility] Maliha Faulkner, [facility], [facility], in M.S.N., R.N. [place], [place] [address] [place] [address] Social History Tobacco Use Types Packs/Day Years [...] 07/09/21 from an outside facility out of [place]. She is not concerned with signs of infection due to mild pain, redness, and swelling of finger. Also stating she has concerns of generalized extremity weakness following surgery, having a difficulty time lifting arms and legs. Denies any SOB, chest pain, necrotic tissue, drainage, fevers, chills. Since procedure was done at an outside facility with no PCP here at [facility], it was recommended she follow back up [...] Visit Cardiovascular Disease Maritza Currie M.D. [address] [place], [place] [phone] (Wo rk) documented as of this encounter Visit Diagnoses Not on filedocumented in this encounter Additional Health Concerns Assessment Noted Time PHQ-9 Depression Total Score: 7 06/21/2014 9:20 AM CDT documented as of this encounter
--- OUTSIDE RECORDS SUMMARY | 2022-01-21 13:47 | XMS_ITS | Encounter Summary ---
:1945 Author Organization [facility] Address [address] [place] [address] Care Team Providers Name Role Phone Unavailable Primary Care Provider Unavailable Reason for Referral Outpatient (Routine) - Authorized Specialty Diagnoses / Procedures Referred By Contact Refer red To Contact Vignesh Currie M .D. [facility] Region [address] [place] [address] Referral ID Status Reason Start Date Expiration Date Visits V isits Requested Authorized [id number] Authorized 11/13/2021 11/13/2022 1 1 Outpatient (Routine) - Authorized Specialty Diagnoses / Procedures Referred By Contact Refer red To Contact Diagnoses Diabetes Mellitus Type 2 (HCC) Coronary Stent Status Post Anemia Pain Chest Atypical Vignesh Currie M.D. [facility] Region Procedures Echo Transthoracic (TTE) [address] [place] [address] Referral ID Status Reason Start Date Expiration Date Visits V isits Requested Authorized [id number] Authorized 11/13/2021 11/13/2022 1 1 Reason for Visit Reason Comments Follow-up Appointment Request (Routine) - Closed Specialty Diagnoses / Procedures Referred By Contact Refer red To Contact Referral ID Status Reason Start Date Expiration Date Visits Requ ested Visits Authorized [id number] Closed 05/07/2021 05/07/2022 1 Encounter Details Date Type Department Care Team Description 11/13/2021 Office Visit Department of Vignesh Currie Diabetes Me llitus Type 2 (HCC) (Primary Dx); Cardiovascular Diseases Lee Lance Coronary Stent Status Post; in [address] [place] [address] Anemia; [address] [place], [place] Pain Chest Atypical [place] [phone] Social History Tobacco Use Types Packs/Day Years [...] Marcial is a pleasant 76-year-old female from [place], [place]. She is accompanied to clinic by [...] Vignesh Currie M.D. CT CT Job ID: [id number] documented in this encounter Plan of Treatment Upcoming Encounters Date Type Specialty Care Team Description 01/22/2022 Office Visit Cardiovascular Disease Maritza Currie M.D. [address] [place] [phone] (Wo rk) Scheduled Orders Name Type Priority Associated Order Schedule Diagnoses Echo Transthoracic Echocardiography Routine Diabetes Mellitus Expected: [...]
--- OUTSIDE RECORDS SUMMARY | 2022-01-21 13:47 | XMS_ITS | Encounter Summary ---
:1945 Author Organization [facility] Address [address] [place] [address] Care Team Providers Name Role Phone Unavailable Primary Care Provider Unavailable Reason for Visit Reason Comments Neck Pain Encounter Details Date Type Department Care Team Description 12/06/2021 Clinical Communication Department of Vignesh Currie Pain Cardiovascular Medicine Lee Lance in [facility] [address] [facility] [address] [place] [phone] Social History Tobacco Use Types Packs/Day Years [...] this encounter Miscellaneous Notes Telephone Encounter - Vignesh Currie M.D. - 12/11/2021 3:41 PM CDT Sorry, for confusion. So many messages on this patient. We will get the TTE and the stress test. Theinformation is complementary. I agree, neck pain does not sound cardiac (nonexertional, worse with moving neck). She should discuss with primary provider. I don't see the Lasix RX request... Telephone Encounter - Lise Lopez R.N. - [...] I advised she reach out to her Payment Rep regarding this but that I would also [...] Cardiovascular Disease Maritza Currie M.D. [address] [place], [place] [phone] (Wo rk) documented as of this encounter Visit Diagnoses Not on filedocumented in this encounter Additional Health Concerns Assessment Noted Time PHQ-9 Depression Total Score: 7 06/21/2014 9:20 AM CDT documented as of this encounter
--- OUTSIDE RECORDS SUMMARY | 2022-01-21 13:47 | XMS_ITS | Encounter Summary ---
:1945 Author Organization [facility] Address [address] [place] [address] Care Team Providers Name Role Phone Unavailable Primary Care Provider Unavailable Reason for Referral Physical Therapy (Routine) - Authorized Specialty Diagnoses / Procedures Referred By Contact Refer red To Contact Diagnoses Imbalance Non Orthopedic Adriane Patel, C.N.P. [facility] Procedures PT Ongoing treatment [address] [place] [address] Referral ID Status Reason Start Date Expiration Date Visits V isits Requested Authorized [id number] Authorized 07/23/2021 07/23/2022 99 99 Reason for Visit Appointment Request (Routine) - Closed Specialty Diagnoses / Procedures Referred By Contact Refer red To Contact Physical Therapy Diagnoses Vertigo Benign Paroxysmal Positional Adriane Patel, C.N.P. [address] [place] [address] Referral ID Status Reason Start Date Expiration Date Visits Requ ested Visits Authorized [id number] Closed 07/05/2021 07/05/2022 1 1 Encounter Details Date Type Department Care Team Description 07/17/2021 Comprehensive Visit Department of Elizabeth Patel, C.N.P. [address] [place] [address] Imbalance Non Rehabilitation [place] P.TJairo [address] [address] Orthopedic Services in [address] [phone] Social History Tobacco Use Types Packs/Day Years [...] AND B / Product Type: Medicare / [employer] Visit Count: 1 PERTINENT MEDICAL / SURGICAL [...] of motion is within normal limits. Hallpike [place] test was positive for right posterior canal [...] Cardiovascular Disease Maritza Currie M.D. [address] [place] [phone] (Wo rk) documented as of this encounter Visit Diagnoses Diagnosis Imbalance Non Orthopedic documented in this encounter Additional Health Concerns Assessment Noted Time PHQ-9 Depression Total Score: 7 06/21/2014 9:20 AM CDT documented as of this encounter
--- OUTSIDE RECORDS SUMMARY | 2022-01-21 13:47 | XMS_ITS | Encounter Summary ---
:1945 Author Organization [facility] Address [address] [place] [address] Care Team Providers Name Role Phone Unavailable Primary Care Provider Unavailable Reason for Referral Physical Therapy (Routine) - Authorized Specialty Diagnoses / Procedures Referred By Contact Refer red To Contact Diagnoses Imbalance Non Orthopedic Vignesh Currie M.D. [facility] Procedures PT Evaluate and treat [address] [place] [address] Referral ID Status Reason Start Date Expiration Date Visits V isits Requested Authorized [id number] Authorized 07/05/2021 07/05/2022 99 99 Reason for Visit Reason Comments PT orders Encounter Details Date Type Department Care Team Description 07/03/2021 Clinical Communication Department of Vignesh Currie orders Cardiovascular Diseases Lee Lance in [facility] [address] [facility] [address] [place] [phone] Social History Tobacco Use Types Packs/Day Years [...] Routing: -Order and Lab requests go to [facility] PCP PANEL MANAGERS -Referral Requests go to PCPs HAND TUBE BENDER pool ??? Please pend orders prior to routing to PCP/Provider ??? DOS/PASS are encouraged to pend orders prior to forwarding message documented in this encounter Plan of Treatment Upcoming Encounters Date Type Specialty Care Team Description 01/22/2022 Office Visit Cardiovascular Disease Maritza Currie M.D. [address] [place] [phone] (Wo rk) documented as of this encounter Visit Diagnoses Diagnosis Imbalance Non Orthopedic - Primary documented in this encounter Additional Health Concerns Assessment Noted Time PHQ-9 Depression Total Score: 7 06/21/2014 9:20 AM CDT documented as of this encounter
--- OUTSIDE RECORDS SUMMARY | 2022-01-21 13:47 | XMS_ITS | Encounter Summary ---
:1945 Author Organization [facility] Address [address] [place] [address] Care Team Providers Name Role Phone Unavailable Primary Care Provider Unavailable Reason for Visit Reason Comments Hand Pain COVID Nurse Line Encounter Details Date Type Department Care Team Description 08/13/2021 Nurse Triage Department of Family Nataly Armstrong Pain; COVID Nurse Medicine in [facility] Shahla Anderson [place], [place] [address] [facility] [address] [place] [phone] Social History Tobacco Use Types Packs/Day Years [...] Miscellaneous Notes Telephone Encounter - Nataly Armstrong RJairoNJairo - 08/13/2021 8:23 AM CDT COVID-19 Nurse [...] frequently with soap and water, use hand scientific writer if soap and water aren't available. -Wear [...] care: Yes The following references were used: [facility] novel coronavirus (COVID- 19) resources Telephone Encounter - Nataly Armstrong R.N. - 08/13/2021 8:15 AM CDT Chief Complaint / Reason for Call Patient is a 76 y.o. female calling regarding Hand Pain and COVID Nurse Line. Assessment Concern: [facility] has an infection in finger. [facility] had gout and had surgery and is not healing. States would like someone to look at finger. Reports left 2nd digit. [facility] had surgery in [facility], states had a flair up after surgery and was placed on medication, but then taken off due to decreased kidney function. States finger is red, sometimes blue/purple, reports continued swelling, states sometimes feels burning in finger. Denies drainage from prior incision, denies fever, denies red streaks. [facility] had surgery on July 09 & July 29 had a flair up Present for: Couple weeks Home cares tried: Tylenol Calling to request: Appointment The recommended disposition is See a health care provider within 24 hours. Patient was warm transferred toShelly Patient Appointment Outboard Motor Mechanic at the clinic for further assistance. Care Advice Patient/Caregiver understands and will follow care advice?: Yes, able to teach back SEE PCP WITHIN 24 HOURS: * IF OFFICE WILL BE OPEN: You need to be examined within the next 24 hours. Call your doctor (or CRYSTAL FLAT GRINDER/PA) when the office opens and make an [...] acetaminophen, ibuprofen, or naproxen. * They are izcz-uyu-lxgztou (OTC) pain drugs. You can buy them [...] acetaminophen overdose can hurt the liver. * [employer], the company that makes Tylenol, has different dosage instructions for Tylenol in [place] and the [place]. In [place], the maximum recommended dose per day is 4,000 mg or twelve Regular-Strength (325 mg) pills. In the [place], the maximum dose per day is ten Regular-Strength (325 mg) pills. * [employer], the company that makes Aleve, has different dosage instructions for Aleve in [place] [facility]. In [place], the maximum recommended dose per day is 440 mg (2 pills or caplets). In the [place], the maximum dose per day is [...] of skin around nail) Protocols used: FINGER [id number] documented in this encounter Plan of Treatment Upcoming Encounters Date Type Specialty Care Team Description 01/22/2022 Office Visit Cardiovascular Disease Maritza Currie M.D. [address] [place], [place] [phone] (Wo rk) documented as of this encounter Visit Diagnoses Not on filedocumented in this encounter Additional Health Concerns Assessment Noted Time PHQ-9 Depression Total Score: 7 06/21/2014 9:20 AM CDT documented as of this encounter
--- OUTSIDE RECORDS SUMMARY | 2022-01-21 13:47 | XMS_ITS | Encounter Summary ---
:1945 Author Organization [facility] Address [address] [place] [address] Care Team Providers Name Role Phone Unavailable Primary Care Provider Unavailable Encounter Details Date Type Department Care Team Description 12/17/2020 Orders [address] [facility] Lincoln Domingo M.D. [place] [address] [facility] [address] [address] [place], [place] [phone] Social History Tobacco Use Types Packs/Day Years [...] Cardiovascular Disease Maritza Currie M.D. [address] [place], [place] [phone] (Wo rk) documented as of this encounter Visit Diagnoses Not on filedocumented in this encounter Additional Health Concerns Assessment Noted Time PHQ-9 Depression Total Score: 7 06/21/2014 9:20 AM CDT documented as of this encounter
--- OUTSIDE RECORDS SUMMARY | 2022-01-21 13:47 | XMS_ITS | Encounter Summary ---
:1945 Author Organization [facility] Address [address] [place] [address] Care Team Providers Name Role Phone Unavailable Primary Care Provider Unavailable Reason for Visit Reason Comments Med Refill Encounter Details Date Type Department Care Team Description 02/19/2021 Refill Department of Cardiovascular [facility] Vignesh bella M.D. Med Refill Diseases in [place], [place] [address] [facility] [address] [place] [address] [place] [address] [phone] Social History Tobacco Use Types Packs/Day Years [...] Cardiovascular Disease Maritza Currie M.D. [address] [place], [place] [phone] (Wo rk) documented as of this encounter Visit Diagnoses Not on filedocumented in this encounter Additional Health Concerns Assessment Noted Time PHQ-9 Depression Total Score: 7 06/21/2014 9:20 AM CDT documented as of this encounter
--- OUTSIDE RECORDS SUMMARY | 2022-01-21 13:47 | XMS_ITS | Encounter Summary ---
:1945 Author Organization [facility] Address [address] [place] [id number] Care Team Providers Name Role Phone Elsewhere, Pcp Primary Care Provider Unavailable Reason for Visit Reason Comments Chest Pain Chest pain started in middle of night.Pt has taken 3 nitro with minimal relief Encounter Details Date Type Department Care Team Description 01/12/2022 Emergency [facility] Emergency Reu, Martha Anderson Non -ST Elevation Myocardial Infarction (HCC) (Primary Dx); Department P.A.-C. Pain Chest; [address] [place] [address] Coronary Stent Status Post; [place], [place] Anemia; [id number] Chronic Kidney Disease (CKD), Stage 3 Un specified ([facility]) [phone] Social History Tobacco Use Types Packs/Day Years [...] Sign Reading Time Taken Comments Blood Pressure 144/72 01/12/2022 7:00 PM SOFTWARE SYSTEMS ENGINEER Pulse 79 01/12/2022 7:00 PM SOFTWARE SYSTEMS ENGINEER Temperature 36.3 ??C (97.3 ??F) 01/12/2022 8:52 AM SOFTWARE SYSTEMS ENGINEER Respiratory Rate 19 01/12/2022 7:00 PM SOFTWARE SYSTEMS ENGINEER Oxygen Saturation 97% 01/12/2022 7:00 PM SOFTWARE SYSTEMS ENGINEER Inhaled Oxygen Concentration - - Weight 80.2 kg (176 lb 12.9 oz) 01/12/2022 8:52 AM SOFTWARE SYSTEMS ENGINEER Height - - Body Mass Index 31.41 11/13/2021 3:09 PM CDT documented in this encounter Medications at Time of Discharge Medication Sig Dispensed Refills Start Date End Date abatacept (ORENCIA) 25 Infuse 750 mg into a 0 mg/mL injection venous catheter every 30 (thirty) days. allopurinoL (ZYLOPRIM) Take 200 mg by mouth 0 08/2021 100 mg tablet daily. ALPRAZolam (XANAX) 0.5 Take 1 tablet by 0 016 mg tablet mouth every 8 (eight) hours as [...] mouth 0 mg tablet daily. Dexcom G6 Bobbin Winder misc See Admin 0 11/15/2021 Instructions. furosemide (LASIX) 20 mg Take 0.5 tablets (10 30 tablet 0 1 12/10/2022 tabletIndications: mg total) by mouth as Ischemic Heart Chronic directed. Take 0.5 Disease, Coronary Stent tablet as needed for Status Post, Pain Chest swelling and Atypical, Edema shortness of breath. leflunomide (ARAVA) 20 Take 20 [...] tablet daily metoprolol tartrate Take 0.5 tablets 30 tablet 2 01/14/2022 (LOPRESSOR) 25 mg tablet (12.5 mg total) by mouth 2 (two) times a day. nitroglycerin PLACE 1 TABLET UNDER 25 tablet 3 02/20/2021 (NITROSTAT) 0.4 mg SL THE TONGUE EVERY 5 tablet MINUTES IF NEEDED FOR UP TO 3 TIMES, IF NO RELIEF CALL 911 pantoprazole (PROTONIX) Take 40 mg by mouth 0 40 mg EC tablet every morning before breakfast. abatacept in NaCl 0.9% Infuse into a venous 0 01/13/2022 IVPB catheter. aspirin [address] tablet Take 1 tablet (81 mg 30 tablet 2 01/14/2022 total) by mouth daily. aspirin [address] tablet Take 1 tablet (81 mg 30 tablet 2 01/15/2022 total) by mouth daily. Antiplatelet per [facility] Trial. Please see Dr. Alexander's note dated 01/14/2022 for further details blood sugar diagnostic USE DIRECTED TO 100 each 10 12/1701/13/2022 strips TEST 1 TO 3 TIMES DAILY clindamycin (CLINDAGEL) 0 07/15/2018 1 03/15/2021 1 % gel dapagliflozin (FARXIGA) Take 1 tablet (5 mg 30 tablet 11 01/13/2022 5 mg tablet total) by mouth daily. dulaglutide (Trulicity) INJECT 0.75 MG UNDER 0 01/13/2022 0.75 mg/0.5 mL injection THE SKIN ONCE WEEKLY ergocalciferol (DRISDOL) Take 50,000 Units by 0 01/13/2022 50,000 Unit capsule mouth once a week. ferrous gluconate Take 38 mg by mouth 0 01/13/2022 (FERGON) 324 mg (38 mg daily. iron) tablet glipiZIDE Take 10 mg by mouth 0 07/03/201601/13 (for_GLUCOTROL) 5 mg every morning before tablet breakfast. omeprazole (PriLOSEC) 20 0 08/20/2021 01/13/[address] capsule triamcinolone (KENALOG) 0 11/22/2021 1 03/15/2021 0.1 % cream UNABLE TO FIND Med Name: Trulicity 0 1 03/15/2021 documented as of this encounter ED Notes Martha Kidd P.A.-C. - 01/12/2022 8:46 AM CST CHIEF COMPLAINT/REASON FOR VISIT Chest Pain (Chest pain started in middle of night.Pt has taken 3 nitro with minimal relief) HISTORY OF PRESENT ILLNESS Marcial Adams is a 76 y.o. female with a history of type 2 diabetes, ASHD s/p LAD stent (2014), chronic ischemic heart disease, BPPV, anemia, hyperlipidemia, hypertension, hypothyroid, gout, peripheral edema, chronic peripheral venous insufficiency, CKD 3, RA, gastritis, osteoporosis anxiety, and polio myelitis who presents to the ED for evaluation of intermittent diffuse anterior chest pain that started at 5 am while lying in bed. Pain resolved without intervention. Pain returned after she awakened and was up and about at home. She took 3 nitro with incomplete relief in pain. She rates pain 2/10. Pain is worse when pressing on her chest. No other aggravating or alleviating factors. No radiation of pain today. No other treatments tried. The patient has been having intermittent episodes of anterior chest pain with radiation to bilateral neck and jaw since September, for which she has seen cardiology, her PCP, and ENT (see below). The patient states pain today is different as it does not radiate. She denies any fevers, chills, sweats, headache, neck pain, cough/URI symptoms, shortness of breath, sputum, wheezing, abdominal pain, nausea, vomiting, diarrhea, urinary symptoms, rash or skin changes, leg pain, or increased edema. She has had no recent travel, recent surgery, prolonged immobility, exogenous estrogen, treatment for malignancy, h/o DVT/PE, or family history of bleeding/clotting. No recent illness, ill contacts, recent travel or known/suspected COVID-19 exposure. Per EMR review, the patient was most recently evaluated by cardiology 11/13/21 at which time she was noted to have discrete episodes of atypical chest pain, neck pain and jaw pain at rest with modest improvement in chest symptoms, but incomplete relief of neck discomfort. A nuc med stress test and resting echo were ordered, which are scheduled for this (4 days from now). The patient was evaluated by her PCP on 12/16 for radiating chest/neck/jaw pain since September. She was switched from omeprazole to pantoprazole and referred to ENT. The patient saw ENT the following dayand it was felt that symptoms were related to laryngeal reflux. The patient reports improvement in symptoms to treatment change. Of note, the patient had an upper endoscopy recently and showed gastritis. Her aspirin was transitioned to Plavix. She has been maintained on a PPI. The patient has a CT chest angio, CXR, and lower extremity doppler ultrasounds listed on 10/24/21, but I cannot see these results. Past Medical History: Reviewed in the EMR. Agree with nursing documentation. Pertinent past medical history noted per HPI. Past Medical History: Diagnosis Date Abnormal Stress Test Anxiety Generalized Disorder Cataract Coronary Artery Disease [place] Vessel Diabetes Mellitus Type 2 (HCC) Hyperlipidemia [...] Stone Kidney Transient Ischemic Attack Uncertain diagnosis Patient Active Problem List Diagnosis Diabetes Mellitus Type 2 (HCC) Ischemic Heart Chronic Disease Vertigo Vertigo Benign Positional Bilateral Diarrhea Anemia Vertigo Benign Paroxysmal Positional Right Hyperlipidemia Mixed Coronary Stent Status Post Diabetes Mellitus NOS Venous Insufficiency Chronic Peripheral Upper Abdominal Pain Unspecified Presence Of Coronary Angioplasty Implant And Graft Status Post Postmenopausal Atrophic Vaginitis Paresthesia Pain Cervical Other Specified Hypothyroidism Other Postprocedural Complications And Disorders Of Genitourinary System Osteoporosis Noninfective Gastroenteritis And Colitis Unspecified Hypertension Essential Primary Gout Edema Chronic Kidney Disease Stage 3 Glomerular Filtration Rate 30 To 59 (HCC) Cataract Bleeding Postmenopausal Atherosclerotic Heart Disease Of [place] Coronary Artery Without Angina Pectoris Arthritis Rheumatoid (HCC) Anxiety Abnormal Liver Function Test Infection Urinary Tract Recurrent Other Specified Postprocedural States Appendectomy Status Post Localized Swelling Mass And Lump Neck Varicella Poliomyelitis Myelitis Personal History Hemorrhoidectomy Status Post Biopsy And Excision Lymph Node Status Post Osteoporosis Medications: No current facility-administered medications on file prior to encounter. Current Outpatient Medications on File Prior to [...] diagnostic (Accu-Chek Alison Plus test strp) strips calcium carbonate-vitamin D3 600 mg-10 mcg (400 [...] mouth. UNABLE TO FIND Med Name: Mihaela Family History: Family History Problem Relation Age of Onset Lung cancer Father Coronary artery disease Father Diabetes Brother Prostate cancer Brother Aneurysm Brother Diabetes Daughter Migraines Daughter Breast cancer Mother Cataracts Neg Hx Macular degeneration Neg Hx Retinal degeneration Neg Hx Retinal detachment Neg Hx Amblyopia Neg Hx Blindness Neg Hx Social History: Reviewed in the EMR. Agree with nursing documentation. Pertinent social history noted per HPI. Social History Tobacco Use Smoking status: Never Smokeless tobacco: Never Vaping Use Vaping Use: never used Substance Use Topics Alcohol use: Never Drug use: Never REVIEW OF SYSTEMS Const: no fever, chills, sweats Eyes: no redness, vision changes ENT: no sore throat, runny nose, sinus pain, ear pain CV: + chest pain; no shortness of breath, exertional dyspnea, exercise intolerance, orthopnea, PND, leg swelling, palpations, syncope Resp: no cough, wheezing, hemoptysis, shortness of breath, exercise intolerance, sputum production GI: no anorexia, nausea, vomiting, diarrhea, constipation, abdominal pain : no polyuria, dysuria, urinary frequency/urgency, hematuria, hesitancy, flank pain Neuro: no headache, photophobia or pain with EOMs, vision changes, speech changes, smell, taste, or hearing changes, paresthesias or focal weakness of extremities, seizures, confusion, memory loss, gait/coordination difficulty Heme: anemia; on Plavix, easy bruising/bleeding Endo: no high blood sugar, polyuria, polydipsia Skin: no rashes, itching, diaphoresis, change in color, MSK: no extremity pain, deformity, arthralgias, joint swelling, limitation of ROM ALL/IM: numerous allergies with no anaphylaxis or immunocompromised state Psych: no agitation, anxiety PHYSICAL EXAMINATION Nursing notes reviewed. Initial Vitals Temperature 01/12/22 0852 36.3 ??C Pulse Rate 01/12/22 0845 92 Heart Rate 01/12/22 0845 96 Resp Rate 01/12/22 0845 22 Blood Pressure 01/12/22 0845 154/77 SpO2 01/12/22 0845 97 % Pain Score 01/12/22 1723 3 Vitals: 01/12/22 1715 01/12/22 1730 01/12/22 1745 01/12/22 1800 BP: (!) 170/84 155/75 Pulse: 103 90 84 88 Resp: 19 19 13 18 Temp: SpO2: 100% 98% 98% 98% Weight: General: Awake, alert, oriented x3. Well-developed, hydrated and nourished. Appears stated age. Nontoxic. No apparent distress. Head: Normocephalic. Contusion noted on left forehead. Eyes: Normal sclerae and conjunctivae, PERRLA, extraocular movements intact ENT: Oropharynx is clear with good dentition. Tongue is midline and normal in appearance without lesions. Nose is symmetric. Nares patent. Moist mucus membranes. Hearing is grossly normal. Neck: Supple, full range of motion, no masses, trachea midline, no lymphadenopathy, no meningeal signs, no Cspine tenderness, no JVD. Heart: Regular rate and rhythm. S1 and S2 normal. No murmurs, gallops, or rubs. Chest/Lungs: Chest wall is symmetric without deformity. + Chest wall is tender on palpation. Normal respiratory effort. No labored breathing. No stridor, retractions, or respiratory distress. Lungs clear to auscultation bilaterally. No wheezing, rales, or rhonchi. Abd: Soft, symmetric, nontender, nondistended, normal bowel sounds. No masses or organomegaly. No rebound or guarding. Back: Normal to inspection. No deformity or external signs of trauma. Normal range of motion. Ext: Warm, well-perfused. No cyanosis, clubbing. + 1 + symmetric lower extremity edema. No bruising,swelling or deformity. Normal range of motion without bony tenderness. Gait is smooth and steady. Skin: Warm, dry, normal color for ethnicity. No rashes or diaphoresis. Nailbeds pink with no cyanosis or clubbing. Neuro: Awake, alert, GCS 15, speech clear, cranial nerves II-XII grossly intact, normal bulk, tone and strength in all extremities, normal sensation x4 without focal deficits. No gait abnormalities appreciated. Vascular: Peripheral pulses symmetric, normal cap refill. Psych: Appropriate mood and affect. Pleasant and appropriate. ED Course as of 01/12/221919 Sun Jan 12, 2022 0849 EKG reviewed and shows NSR, rate 86. No ST elevation or ischemic changes. No significant changewhen compared to previous. 0849 Met with patient to perform history and physical exam, outline emergency department work up andinitial treatment, as well as explain expected time frame. 0916 The patient is going to radiology now. 09 CBC reveals Hgb 10.0 (baseline is 11.0, last checked one year ago). 0936 BMP reveals Cr 1.54 (CKD stage 3, baseline Cr 1.49 last checked one year ago), hyperglycemia (glucose 239). Initial Trop is 14. 0937 The patient was reassessed and updated on results and plan. Awaiting serial Trop. She remains pain free. 0949 CXR is negative for acute disease process. 0949 Serial Trop is in process. 1145 Serial Trop has increased by 7 (21). Will perform 6 hour Trop. 1148 The patient was reassessed and updated on results and plan. She remains pain free. 1529 Six hour trop is elevated 47. 1529 Called [facility] to initiate transfer. There are no beds available. They will call back. 1533 The patient was reassessed and updated on results and plan. She remains comfortable and pain free. I offered to call other facilities in the [facility] area, but the patient wanted to stay within the [facility] system. 1642 Bed management called and informed that patient's bed is ready. Nurse to call for transport. 1715 The patient is requesting something here for anxiety. Will order ativan. 1900 [facility] arrived to transport patient to [place]. Final Diagnoses: as of 01/12/22 1920 Pain Chest Coronary Stent Status Post Anemia Chronic Kidney Disease (CKD), Stage 3 Unspecified (HCC) Non-ST Elevation Myocardial Infarction (HCC) MEDICAL DECISION MAKING: In summary, this is a pleasant 76 y.o. female with a history of ype 2 diabetes, ASHD s/p LAD stent (2014), chronic ischemic heart disease, BPPV, anemia, hyperlipidemia, hypertension, hypothyroid, gout,peripheral edema, chronic peripheral venous insufficiency, CKD 3, RA, gastritis, osteoporosis anxiety, and polio myelitis who presents to the ED for evaluation of intermittent diffuse anterior chest pain that started at 5 am while lying in bed. Pain resolved without intervention. Pain returned after she awakened and was up and about at home. She took 3 nitro with incomplete relief in pain. Pain is rated 2/10. Pain is worse when pressing on her chest. No other aggravating or alleviating factors. No radiation of pain today. No other treatments tried. The patient has been having intermittent episodes of anterior chest pain with radiation to bilateral neck and jaw since September, for which she has seen cardiology, her PCP, and ENT (see below). The patient states pain today is different as it does not radiate. No other associated symptoms. Per EMR review, the patient was most recently evaluated by cardiology 11/13/21 at which time she was noted to have discrete episodes of atypical chest pain, neck pain and jaw pain at rest with modest improvement in chest symptoms, but incomplete relief of neck discomfort. A nuc med stress test and resting echo were ordered, which are scheduled for this (4 days from now). The patient was evaluated by her PCP on 12/16 for radiating chest/neck/jaw pain since September. She was switched from omeprazole to pantoprazole and referred to ENT. The patient saw ENT the following dayand it was felt that symptoms were related to laryngeal reflux. The patient reports improvement in symptoms to treatment change. On ER arrival, the patient is well appearing, nontoxic with normal vitals. Exam reveals chest wall tenderness on palpation with mild lower extremity edema that is symmetric. Differential diagnoses: Myocardial ischemia, pericarditis, aortic dissection, pulmonary embolism, pneumothorax, esophageal rupture, valvular disease, pulmonary hypertension, pneumonia, pleurisy, myocarditis, asthma, exacerbation, gastroesophageal reflux disease, peptic ulcer disease, biliary colic, reveles creatitis, musculoskeletal, anxiety, among others. ED course/interventions: Met with patient upon ER arrival. Aspirin ordered. EKG showed normal sinus rhythm, rate [address] elevation or ischemic changes. There are no significatn changes when compared to previous. Labs were ordered, including CBC, BMP, serial Trop. Abnormal labs revealed anemia (Hgb 10.0, baseline is 11.0). Initial Trop wsa 14. Serial Trop increased to 21, so a six hour Trop was ordered and showed increase to 47. CXR was ordered and showed no acute cardiopulmonary disease process. I called [facility] to consult Cardiology and transfer patient for NSTEMI. I discussed case with Dr. Pedraza who recommended loading dose of Plavix and infusion of Heparin (without loading dose) and transferto [place]. Given delay in transfer due lack of bed availability, Dr. Pedraza recommended trying other [facility] to see if they have any availability for admission. I offered this to patient and her and they declined and would prefer to stay within the [facility] system. The patient requested and was given a small dose of anxiolytic while awaiting transport. She remained comfortable, pain free and hemodynamically stable throughout her ED stay. She will be transferred to [place] by [facility]. -- Nursing documentation and prior records reviewed in the medical record. -- I personally reviewed by visualization, interpreted, and discussed with the patient the results of labs, imaging studies, and EKG as reported in the medical record. Medications heparin (porcine) 1,000 unit/mL injection 2,400 Units (has no administration in time range) Or heparin (porcine) 1,000 unit/mL injection 4,800 Units (has no administration in time range) heparin (porcine) 100 Units/mL in NaCl 0.45% 250 mL infusion (12 Units/kg/hr ?? 80.2 kg (Dosing Weight) intravenous New Bag 01/12/22 1618) aspirin chewable tablet 324 mg (324 mg oral Given 01/12/22 0923) clopidogreL tablet 600 mg (PLAVIX) (600 mg oral Given 01/12/22 1622) LORazepam injection 0.5 mg (ATIVAN) (0.5 mg intravenous Given 01/12/22 171) FINAL DIAGNOSIS: 1. Non-ST Elevation Myocardial Infarction (HCC) 2. Pain Chest 3. Coronary Stent Status Post 4. Anemia 5. Chronic Kidney Disease (CKD), Stage 3 Unspecified (HCC) ED Prescriptions None DIAGNOSTIC RESULTS Labs Reviewed CBC WITH DIFFERENTIAL, B - Abnormal Result Value Hemoglobin 10.0 (*) Hematocrit 31.5 (*) Erythrocytes 3.41 (*) MCV 92.4 RBC Distrib Width 14.1 Platelet Count 185 Leukocytes 9.0 Neutrophils 6.98 (*) Lymphocytes 0.93 (*) Monocytes 0.58 Eosinophils 0.40 Basophils 0.05 BASIC METABOLIC PANEL, S/P - Abnormal Potassium, P 3.8 Sodium, P 139 Chloride, P 106 Bicarbonate, P 21 (*) Anion Gap, P 12 BUN (Blood Urea Nitrogen), P 27 (*) Creatinine 1.54 (*) Estimated GFR (eGFR) 35 (*) Calcium, Total, P 9.7 Glucose, P 239 (*) TROPONIN T, BASELINE, 5TH GEN, P - Abnormal Troponin T, Baseline, 5th gen 14 (*) TROPONIN T, 2H/6H, 5TH GEN, P - Abnormal Troponin T, 2 hr, 5th gen 21 (*) 2H Delta 7 2H Delta Interp Indeterminate Troponin T, 6 hr, 5th gen 47 (*) 6H Delta 33 6H Delta Interp Changing Narrative: Specimen Information: Specimen ID: [id number] Specimen Type: Blood Specimen Collection Start Date: 01/12/2022 11:02 AM Specimen Received Date: 01/12/2022 11:05 AM Specimen ID: [id number] Specimen Type: Blood Specimen Collection Start Date: 01/12/2022 3:05 PM Specimen Received Date: 01/12/2022 3:07 PM ACTIVATED PARTIAL THROMBOPLASTIN TIME (APTT), P Activated Partial Thrombopl Time, P 33 CBC WITHOUT DIFFERENTIAL, B DX Chest AP or PA and Lateral 2 Views Final Result Comparison 10/24/2021. Cardiac silhouette is normal in size. Prominent left epicardial fat pad. No focal consolidation to suggest pneumonia. No significant pleural effusion or pulmonary edema. There is no pneumothorax. ECG 12 Lead Result Date: 01/12/2022 Normal sinus rhythm Nonspecific ST and T wave abnormality When compared with ECG of 27-JUL-2018 10:08, No significant change was found Reviewed by KATERYNA Ulloa Angela L, P.AJairo-Simone 01/12/221919 WARE SYSTEMS ENGINEER documented in this encounter Plan of Treatment Upcoming Encounters Date Type Specialty Care Team Description 01/22/2022 Office Visit Cardiovascular Disease Maritza Currie M.D. [address] [place], [place] [phone] (Wo rk) documented as of this encounter Procedures Procedure Name Priority Date/Time Associated Comments Diagnosis ACTIVATED PARTIAL Routine 01/12/2022 6:22 Results for THROMBOPLASTIN TIME PM SOFTWARE SYSTEMS ENGINEER this pro cedure (APTT), P are in the results section. TROPONIN T, 2H/6H, Timed 01/12/2022 11:02 Resul ts for 5TH GEN, P AM SOFTWARE SYSTEMS ENGINEER this procedure are in the results section. DX CHEST AP OR PA AND RAD - Semiurgent 01/12/2022 9:19 Results for LATERAL 2 VIEWS (Fast; most ED AM SOFTWARE SYSTEMS ENGINEER this proce dure patients; some are in the inpatients) results section. TROPONIN T, BASELINE, STAT 01/12/2022 9:10 Res ults for 5TH GEN, P AM SOFTWARE SYSTEMS ENGINEER this procedure are in the results section. CBC WITH STAT 01/12/2022 9:10 Results for DIFFERENTIAL, B AM SOFTWARE SYSTEMS ENGINEER this procedu re are in the results section. BASIC METABOLIC STAT 01/12/2022 9:10 Results f or PANEL, S/P AM SOFTWARE SYSTEMS ENGINEER this procedure are in the results section. ECG STAT 01/12/2022 8:45 Results for AM SOFTWARE SYSTEMS ENGINEER this procedure are in the results section. documented in this encounter Results APTT (Activated Partial Thromboplastin Time) (01/12/2022 6:22 PM SOFTWARE SYSTEMS ENGINEER) athologist Signature Activated 33 25 - 37 sec 01/12/2022 CNFL Partial 6:48 PM SOFTWARE SYSTEMS ENGINEER Thrombopl Time, P Specimen Anatomical Collection Method Collection Time Receive d Time (Source) Location / / Volume Laterality Blood 01/12/2022 6:22 PM 6:36 SOFTWARE SYSTEMS ENGINEER PM SOFTWARE SYSTEMS ENGINEER Martha Kidd P.A.-C. LAB BLOOD ADD-ON Performing Organization Address City/State/ZIP Code Phon e Number [address] [place] [address] (ABNORMAL) Troponin T, 2H/6H, 5th Gen (01/12/2022 11:02 AM SOFTWARE SYSTEMS ENGINEER) athologist Signature Troponin T, 2 21 (H) <=10 ng/L 01/12/2022 [facility] hr, 5th gen 11:36 AM SOFTWARE SYSTEMS ENGINEER Comment: Biotin has been identified by the leti carr as a potential interfering substance. Higher concentrations of biotin may be found in multivitamins, camacho ir/nail supplements, and workout supplements. If the result d oes not match clinical observations, repeat testing af ter patient refrains from the use of supplements for at least 12 hours. 2H Delta 7 ng/L 01/12/2022 11:36 AM SOFTWARE SYSTEMS ENGINEER CNFL 2H Delta Interp Indeterminate 01/12/2022 11:36 AM SOFTWARE SYSTEMS ENGINEER CNFL Comment: Indeterminate delta, additional sample suggested Troponin T, 6 hr, 5th gen 47 (H) <=10 ng/L 01/12/2022 3:2 8 PM SOFTWARE SYSTEMS ENGINEER CNFL Comment: Biotin has been identified by the leti fullerr as a potential interfering substance. Higher concentrations of biotin may be found in multivitamins, camacho ir/nail supplements, and workout supplements. If the result d oes not match clinical observations, repeat testing af ter patient refrains from the use of supplements for at least 12 hours. 6H Delta 33 ng/L 01/12/2022 3:28 PM SOFTWARE SYSTEMS ENGINEER CNFL 6H Delta Interp Changing 01/12/2022 3:28 PM SOFTWARE SYSTEMS ENGINEER C NFL Comment: Evaluate for acute myocardial i njury Specimen Anatomical Collection Method Collection Time Receive d Time (Source) Location / / Volume Laterality Blood (Blood, 01/12/2022 11:02 01/12/2022 Venous) AM SOFTWARE SYSTEMS ENGINEER 11:05 AM SOFTWARE SYSTEMS ENGINEER Narrative [facility] - 01/12/2022 3:28 PM SOFTWARE SYSTEMS ENGINEER Specimen Information: Specimen ID: [id number] Specimen Type: Blood Specimen Collection Start Date: 11:02 AM Specimen Received Date: 01/12/2022 11:0 5 AM Specimen ID: [id number] Specimen Type: Blood Specimen Collection Start Date: 022 ??3:05 PM Specimen Received Date: 01/12/2022 ??3: 07 PM Martha Kidd P.A.-C. LAB BLOOD TROPONIN Performing Organization Address City/State/ZIP Code Phon e Number [address] [place] [address] [address] DX Chest AP or PA and Lateral 2 Views (01/12/2022 9:19 AM SOFTWARE SYSTEMS ENGINEER) Anatomical Region Laterality Modality Chest, Thoracic RST LOS, Thoracic ARZ LOS, Thoracic N/A Digital Radiography FLA LOS Specimen (Source) Anatomical Collection Method Collection Time Re ceived Time Location / / Volume Laterality 01/12/2022 9:44 AM SOFTWARE SYSTEMS ENGINEER Impressions 01/12/2022 9:45 AM SOFTWARE SYSTEMS ENGINEER Comparison 10/24/2021. Cardiac silhouette is normal in size. Prominent left epicardial fat pad. No focal consolidation to suggest pneumo natty. No significant pleural effusion or pulmo nary edema. There is no pneumothorax. Narrative 01/12/2022 9:45 AM SOFTWARE SYSTEMS ENGINEER EXAM: DX CHEST AP OR PA AND [...] T, Baseline, 5th gen (01/12/2022 9:10 AM SOFTWARE SYSTEMS ENGINEER) athologist Signature Troponin T, 14 (H) <=10 ng/L 01/12/2022 CN[facility] Baseline, 5th 9:34 AM SOFTWARE SYSTEMS ENGINEER gen Comment: Biotin has been identified by the leti cturer as a potential interfering substance. Higher concentrations [...] (Blood, 01/12/2022 9:10 AM 01/13/20 9:12 Venous) SOFTWARE SYSTEMS ENGINEER AM SOFTWARE SYSTEMS ENGINEER Martha Kidd P.A.-C. LAB BLOOD TROPONIN Performing Organization Address City/State/ZIP Code Phon e Number [facility]- [address] [place] [id number] [place] [address] [address] (ABNORMAL) Basic Metabolic Panel (01/12/2022 9:10 AM SOFTWARE SYSTEMS ENGINEER) Analysis Performed At Patho logist Time Signature Potassium, P 3.8 3.6 - 5.2 01/12/2022 CNFL mmol/L 9:31 AM SOFTWARE SYSTEMS ENGINEER Sodium, P 139 135 - 145 01/12/2022 CN[facility] mmol/L 9:31 AM SOFTWARE SYSTEMS ENGINEER Chloride, P 106 98 - 107 01/12/2022 CN[facility] mmol/L 9:31 AM SOFTWARE SYSTEMS ENGINEER Bicarbonate, P 21 (L) 22 - 29 01/12/2022 CN[facility] mmol/L 9:31 AM SOFTWARE SYSTEMS ENGINEER Anion Gap, P 12 7 - 15 01/12/2022 CNFL 9:31 AM SOFTWARE SYSTEMS ENGINEER BUN (Blood Urea 27 (H) 6 - 21 01/12/2022 CNFL Nitrogen), P mg/dL 9:31 AM SOFTWARE SYSTEMS ENGINEER Creatinine 1.54 (H) 0.59 - 01/12/2022 CNFL 1.04 mg/dL 9:31 AM SOFTWARE SYSTEMS ENGINEER Estimated GFR 35 (L) >=60 01/12/2022 CN[facility] (eGFR) mL/min/BSA 9:31 AM SOFTWARE SYSTEMS ENGINEER Comment: Estimated GFR calculated using the 2020 CKD_EPI creatinine equation. Calcium, Total, P 9.7 8.8 - 10.2 mg/dL 01/12/2022 9:31 AM SOFTWARE SYSTEMS ENGINEER CNFL Glucose, P 239 (H) 70 - 140 mg/dL 01/12/2022 9:31 AM SOFTWARE SYSTEMS ENGINEER C NFL Specimen Anatomical Collection Method Collection Time Receive d Time (Source) Location / / Volume Laterality Blood (Blood, 01/12/2022 9:10 AM 01/13/20 9:12 Venous) SOFTWARE SYSTEMS ENGINEER AM SOFTWARE SYSTEMS ENGINEER Martha Kidd P.A.-C. LAB BLOOD ADD-ON Performing Organization Address City/State/[facility] Code Phon e Number [address] [place] [address] System [address] (ABNORMAL) CBC with Differential, Blood (01/12/2022 9:10 AM SOFTWARE SYSTEMS ENGINEER) [facility] gist Method Time Signature Hemoglobin 10.0 (L) 11.6 - 01/12/2022 CNFL 15.0 g/dL 9:21 AM SOFTWARE SYSTEMS ENGINEER Hematocrit 31.5 (L) 35.5 - 01/12/2022 CNFL 44.9 % 9:21 AM SOFTWARE SYSTEMS ENGINEER Erythrocytes 3.41 (L) 3.92 - 01/12/2022 CNFL 5.13 9:21 AM SOFTWARE SYSTEMS ENGINEER x10(12)/L MCV 92.4 78.2 - 01/12/2022 CNFL 97.9 fL 9:21 AM SOFTWARE SYSTEMS ENGINEER RBC Distrib Width 14.1 12.2 - 01/12/2022 CNFL 16.1 % 9:21 AM SOFTWARE SYSTEMS ENGINEER Platelet Count 185 157 - 371 01/12/2022 CNFL x10(9)/L 9:21 AM SOFTWARE SYSTEMS ENGINEER Leukocytes 9.0 3.4 - 9.6 01/12/2022 CNFL x10(9)/L 9:21 AM SOFTWARE SYSTEMS ENGINEER Neutrophils 6.98 (H) 1.56 - 01/12/2022 CNFL 6.45 9:21 AM SOFTWARE SYSTEMS ENGINEER x10(9)/L Lymphocytes 0.93 (L) 0.95 - 01/12/2022 CNFL 3.07 9:21 AM SOFTWARE SYSTEMS ENGINEER x10(9)/L Monocytes 0.58 0.26 - 01/12/2022 CNFL 0.81 9:21 AM SOFTWARE SYSTEMS ENGINEER x10(9)/L Eosinophils 0.40 0.03 - 01/12/2022 CNFL 0.48 9:21 AM SOFTWARE SYSTEMS ENGINEER x10(9)/L Basophils 0.05 0.01 - 01/12/2022 CNFL 0.08 9:21 AM SOFTWARE SYSTEMS ENGINEER x10(9)/L Specimen Anatomical Collection Method Collection Time Receive d Time (Source) Location / / Volume Laterality Blood (Blood, 01/12/2022 9:10 AM 01/13/20 9:12 Venous) SOFTWARE SYSTEMS ENGINEER AM SOFTWARE SYSTEMS ENGINEER Martha Kidd P.A.-C. LAB BLOOD ADD-ON Performing Organization Address City/State/ZIP Code Phon e Number [facility]- [address] [place] [phone] [place] [address] [address] ECG 12 Lead (01/12/2022 8:45 AM SOFTWARE SYSTEMS ENGINEER) P athologist Signature Ventricular Rate 86 BPM MUSE ECG/Min ME Interval 152 ms MUSE QRSD Interval 78 ms MUSE QT Interval 378 ms MUSE QTC Interval 452 ms MUSE P [place] 61 degrees MUSE R [place] -27 degrees MUSE T Wave [place] 89 degrees MUSE Specimen Anatomical Collection Method Collection Time Receive d Time (Source) Location / / Volume Laterality 01/12/2022 8:45 AM 8:57 SOFTWARE SYSTEMS ENGINEER AM SOFTWARE SYSTEMS ENGINEER Impressions MUSE - 01/12/2022 8:57 AM SOFTWARE SYSTEMS ENGINEER Normal sinus rhythm Nonspecific ST and T [...] was found Reviewed by KATERYNA Ulloa Martha Kidd P.A.-C. ECG ORDERABLES Performing Organization Address City/State/ZIP Code Phon e Number [facility] documented in this encounter Visit Diagnoses Diagnosis Non-ST Elevation Myocardial Infarction ( HCC) - Primary Pain Chest Coronary Stent Status Post Anemia Chronic Kidney Disease (CKD), Stage 3 Un specified (HCC) documented in this encounter Administered Medications Inactive Administered Medications - up to 3 most recent administrations Medication Order MAR Action Action Date Dose Rate Site aspirin chewable tablet 324 mg Given 01/12/2022 9:27 AM SOFTWARE SYSTEMS ENGINEER 324 mg 324 mg, oral, Once, On 01/12/22 at 0852, For 1 dose clopidogreL tablet 600 mg (PLAVIX) Given 01/12/2022 4:22 PM SOFTWARE SYSTEMS ENGINEER 600 mg 600 mg, oral, Once, On 01/12/22 at 1555, For 1 dose heparin (porcine) 1,000 unit/mL injectio n 2,400 Units 2,400 Units (rounded from 2,406 Units = 30 Units/kg ? 80.2 kg Dosing weight), intravenous, As needed, antiXa 0.1-0.19, Starting on 01/12/22 at 1554, Intensity type: Modera te, Anti-Xa < 0.1: Loading Dose (Units/kg): 60, Anti-Xa 0.1-0.19: Loading Dose (Units/kg): 30, Ant i-Xa > 0.19: Loading Dose (Units/kg): 0 heparin (porcine) 1,000 unit/mL injectio n 4,800 Units 4,800 Units (rounded from 4,812 Units = 60 Units/kg ? 80.2 kg Dosing weight), intravenous, As needed, antiXa less than 0.1, Starting on 01/12/22 at 1554, Intensity type: Moderate, Anti-X a < 0.1: Loading Dose (Units/kg): 60, Anti-Xa 0.1-0.19: Loading Dose (Units/ kg): 30, Anti-Xa > 0.19: Loading Dose (Units/kg): 0 heparin (porcine) 100 New Bag 01/12/2022 4:18 PM SOFTWARE SYSTEMS ENGINEER 12 Units/kg/h r 9.62 mL/hr Units/mL in NaCl 0.45% 250 mL infusion 0-40 Units/kg/hr ? 80.2 kg Dosing weight (0-32.08 mL/hr), intravenous, Continuous, Starting on 01/12/22 at 1555, 25,000 Units in 250 mL, Intensity type: [...] Repeat anti-Xa: 6 hours after Heparin resumed LORazepam injection 0.5 mg (ATIVAN) Given 01/12/2022 5:19 PM SOFTWARE SYSTEMS ENGINEER 0.5 mg 0.5 mg, intravenous, Once, On 01/12/22 at 1717, For 1 dose, Shortage on injection, use oral when possible For intravenous use, dilute with equal volume of 0.9% NS documented in this encounter Active and Recently Administered Medications Times are shown in SOFTWARE SYSTEMS ENGINEER. Scheduled Medication Order 01/10/2022 01/11/2022 01/12/2022 aspirin chewable tablet 324 mg (COMPLETED) 926 (Given - Provider: Luciana Sharpe R.N.) 324 mg, oral, Once, On 01/12/22 at 0852, For 1 dose clopidogreL tablet 600 mg (PLAVIX) (COMPLETED) 162 (Given - Provider: Luciana Sharpe R.N.) 600 mg, oral, Once, On 01/12/22 at 1555, For 1 dose LORazepam injection 0.5 mg (ATIVAN) (COMPLETED) 171 (Given - Provider: Luciana Sharpe R.N.) 0.5 mg, intravenous, Once, On Sun at 1717, For 1 dose, Shortage on injection, use oral when possible For intravenous use, dilute with equal volume of 0.9% NS Continuous Medication Order 01/10/2022 01/11/2022 01/12/2022 heparin (porcine) 100 Units/mL in NaCl 0.45% 250 mL infusion 1618 (New Bag - Provider: Luciana Sharpe R.N.) 0-40 Units/kg/hr ? 80.2 kg Dosing weight (0-32.08 mL/hr), intravenous, Continuous, Starting on 01/12/22 at 1555, 25,000 Units in 250 mL, Intensity type: Moderate, Starting Dose (units/kg/hr): 12, A nti-Xa < 0.1: Adjust Dose (Units/kg/hr) by: 4, Anti-Xa < 0.1: Loading Dose (Units/kg): 60, Anti-Xa < 0.1: Repeat anti-Xa: 6 hours, Anti-Xa 0.1-0.19: Adjust Dose (Units/kg/hr) by: 2, Anti-Xa 0.1 -0.19: Loading Dose (Units/kg): 30, Anti -Xa 0.1-0.19: Repeat anti-Xa: 6 hours, Anti-Xa 0.2-0.5: Adjust Dose (Units/kg/hr) by: 0, Anti-Xa 0.2-0.5: Repeat anti- Xa: 6 hours. If two consecutive therapeutic result, re-check next AM., Anti-Xa > 0.1 9: Loading Dose (Units/kg): 0, Anti-Xa 0.51-0.6: Adjust Dose (Units/kg/hr) by: -1, Anti-Xa 0.51-0.6: Repeat anti-Xa: 6 hours, Anti-Xa 0.61-0.9: Hold Infusion: Stop infusion for 1 hour, Anti-Xa 0.61-0 .9: Adjust Dose (Units/kg/hr) by: -2, Anti-Xa 0.61-0.9: Repeat anti-Xa: 6 hours after Heparin resumed, Anti-Xa >= 0.91: Hold Infusion: Stop infusion for 2 hour s, Anti-Xa >= 0.91: Adjust Dose (Units/k g/hr) by: -4, Anti-Xa >= 0.91: Repeat anti-Xa: 6 hours after Heparin resumed PRN Medication Order 01/10/2022 01/11/2022 01/12/2022 heparin (porcine) 1,000 unit/mL injection 2,400 Units(Linked Sara up 1) 2,400 Units (rounded from 2,406 Units = 30 Units/kg ? 80.2 kg Dosing weight), intravenous, As needed, antiXa 0.1-0.19, Starting on 01/12/22 at 1554, Intensity type: Moderate, Anti-Xa < 0.1: Load ing Dose (Units/kg): 60, Anti-Xa 0.1-0.1 9: Loading Dose (Units/kg): 30, Anti-Xa > 0.19: Loading Dose (Units/kg): 0 heparin (porcine) 1,000 unit/mL injection 4,800 Units(Linked Sara up 1) 4,800 Units (rounded from 4,812 Units = 60 Units/kg ? 80.2 kg Dosing weight), intravenous, As needed, antiXa less than 0.1, Starting on 01/12/22 at 1554, Intensity type: Moderate, Anti-Xa < 0.1: Loading Dose (Units/kg): 60, Anti-Xa 0. 1-0.19: Loading Dose (Units/kg): 30, Anti-Xa > 0.19: Loading Dose (Units/kg): 0 Linked Groups Order Group 1: heparin (porcine) 1,000 unit/mL injection 2,400 UnitsJump to med 2,400 Units (rounded from 2,406 Units = 30 Units/kg ? 80.2 kg Dosing weight), intravenous, As needed, antiXa 0.1-0.19, Starting on 01/12/22 at 1554
Intensity type: Moderate
Anti-X a < 0.1: Loading Dose (Units/kg): 60
Anti-Xa 0.1-0.19: Loading Dose (Units/kg): 30
Anti-Xa > 0.19: Loading Dose (Units/kg): 0 Or heparin (porcine) 1,000 unit/mL injection 4,800 UnitsJump to med 4,800 Units (rounded from 4,812 Units = 60 Units/kg ? 80.2 kg Dosing weight), intravenous, As needed, antiXa less than 0.1, Starting on 01/12/22 at 1554
Intensity type: Moderate
A nti-Xa < 0.1: Loading Dose (Units/kg): 6 0
Anti-Xa 0.1-0.19: Loading Dose (Units/kg): 30
Anti-Xa > 0.19: Loading Dose (Units/kg): 0 documented in this encounter Additional Health Concerns Assessment Noted Time PHQ-9 Depression Total Score: 7 06/21/2014 9:20 AM CDT documented as of this encounter Care Teams Hospital Cook Relationship Specialty Start Date End Date Elsewhere, Pcp PCP - General Internal Medicine 01/12/22 documented as of this encounter
--- OUTSIDE RECORDS SUMMARY | 2022-01-21 13:47 | XMS_ITS | Encounter Summary ---
:1945 Author Organization [facility] Address [address] [place] [id number] Care Team Providers Name Role Phone Unavailable Primary Care Provider Unavailable Encounter Details Date Type Department Care Team Description 11/11/2021 Clinical Communication Department of Vignesh Currie Cardiovascular Diseases Lee Lance in [address] [address] [place], [place] [id number] (Work) [phone] Social History Tobacco Use Types Packs/Day Years [...] Visit Cardiovascular Disease Maritza Currie M.D. [address] [place] [address] [phone] (Wo rk) documented as of this encounter Visit Diagnoses Not on filedocumented in this encounter Additional Health Concerns Assessment Noted Time PHQ-9 Depression Total Score: 7 06/21/2014 9:20 AM CDT documented as of this encounter
--- OUTSIDE RECORDS SUMMARY | 2022-01-21 13:47 | XMS_ITS | Encounter Summary ---
:1945 Author Organization [facility] Address [address] [place] [address] Care Team Providers Name Role Phone Elsewhere, Pcp Primary Care Provider Unavailable Encounter Details Date Type Department Care Team Description 01/13/2022 Surgery Division of Cardiovascular Angel Hankins CORONARY ANGIOGRAPHY Diseases in Chinmay Malagon M. D. [place] [address] [facility] [address] [place] [phone] (Wo rk) Social History Tobacco Use Types [...] Sign Reading Time Taken Comments Blood Pressure 115/57 01/13/2022 5:30 PM OUT OF SCHOOL HOURS CARE WORKER Pulse 68 01/13/2022 5:30 PM OUT OF SCHOOL HOURS CARE WORKER Temperature 36.6 ??C (97.9 ??F) 01/13/2022 5:15 PM OUT OF SCHOOL HOURS CARE WORKER Respiratory Rate 20 01/13/2022 5:30 PM OUT OF SCHOOL HOURS CARE WORKER Oxygen Saturation 97% 01/13/2022 5:30 PM OUT OF SCHOOL HOURS CARE WORKER Inhaled Oxygen Concentration - - Weight 78.1 kg (172 lb 2.9 oz) 01/13/2022 7:19 AM OUT OF SCHOOL HOURS CARE WORKER Height 156 cm (5' 1.42) 01/12/2022 11:33 PM OUT OF SCHOOL HOURS CARE WORKER Body Mass Index 32.09 01/12/2022 11:33 PM OUT OF SCHOOL HOURS CARE WORKER documented in this encounter Discharge Summaries Andrea Barros M.D. - 01/14/2022 11:02 AM CST DISCHARGE SUMMARY BRIEF OVERVIEW Discharge Provider: Troy Jackson M.D., Ph.D. Primary Care Providers: Elsewhere, Pcp (General) No address on file Discharge Provider Team: RST CARD 2 Primary Care Provider Phone Number: [...] 30 To 44 (HCC) Atherosclerotic Heart Disease [place] Coronary Artery With Other Forms Angina Pectoris (Stable Angina/Angina Of Exertion) (HCC) Arthritis Rheumatoid (HCC) Anxiety Resolved Problems: Anemia Elevated Troponin Surgery Information This Encounter Past Procedures (01/14/2021 to Today) Date Procedures Providers Location 01/13/2022 CORONARY ANGIOGRAPHY, Left Heart Catheterization, Percutaneous Coronary Angioplasty, Stent Placement Annika Hankins M.D.Jhand, Aravdeep S, M.B.B.S. RST ROMB CCL DISCHARGE DISPOSITION Home or [...] female with CAD s/p BRITTANY to the [facility] who presents with chest pain and rising troponinemia concerning for NSTEMI. Her medical comorbidities include hypertension, hyperlipidemia, CAD s/p BRITTANY to [facility] (2014), T2DM (last A1c 8.6% in 01/2021), [...] tartrate, aspirin, melatonin CONDITION AT DISCHARGE improved OF SCHOOL HOURS CARE WORKER documented in this encounter Discharge Instructions Discharge InstructionsAndrea Barros M.D. - 01/14/2022 7:59 AM CST You were discharged from the RST CARD 2 Service (Cardiology 2 Team). Please identify this service name if you call with questions after hospitalization. Cardiology recommendations: - You have been enrolled in the [facility] research trial regarding management of patients after coronarystent placement. Genetic testing has been obtained this hospitalization, and you will be contacted about these results. Per this trial, please START taking aspirin 81 mg daily and Plavix 75 mg daily until you are contacted about changing these medications. If you have any questions, please call [facility] and ask for Dr. Alexander. - START [...] up with rheumatology for rheumatoid arthritis management. OF SCHOOL HOURS CARE WORKER AttachmentsThe following attachments cannot be sent through Care Everywhere. Aspirin (By mouth) (Austrian)Melatonin (By mouth) (Austrian)Metoprolol (By mouth) (Austrian)documented in this encounter Medications at Time of [...] mouth 0 mg tablet daily. Dexcom G[address] Light Wirer misc See Admin 0 11/15/2021 Instructions. furosemide [...] #1 Diabetes Mellitus Type 2 (HCC) #2 Coronary Stent Status Post #3 Osteoporosis #4 Hypertensive Chronic Kidney Disease (CKD) Stage 3b Glomerular Filtration Rate (GFR) 30 To 44 (HCC) #5 Gout #6 Chronic Kidney Disease (CKD), Stage 3b Glomerular Filtration Rate (GFR) 30 To 44 (HCC) #7 Atherosclerotic Heart Disease [place] Coronary Artery With Other Forms Angina Pectoris (Stable Angina/Angina Of Exertion) (HCC) #8 Arthritis Rheumatoid (HCC) #9 Anxiety Ms. Adams is status post a stent to her LAD, stable ready for hospital discharge Troy Jackson M.D., Ph.D. 01/14/2022 OF SCHOOL HOURS CARE WORKER Dank Gastelum M.A., R.N. - 01/14/2022 9:29 AM CST Attempted to meet with patient, but unavailable. Will attempt to see again later. OF SCHOOL HOURS CARE WORKER Andrea Barros M.D. - 01/13/2022 1:30 PM CST CARDIOLOGY [...] Coronary angiogram today - TTE (last done 2018, EF 65%) - GDMT #1 NSTEMI #2 [...] MD PGY 1 Department of Internal Medicine [facility], [place], [place] OF SCHOOL HOURS CARE WORKER Kishan Basilio Pharm.D., R.Ph. - 01/13/2022 12:42 [...] List Status: Pharmacy Complete Set By: Kishan Basilio, Pharm.D., R.Ph. at 01/13/2022 12:42 PM Taking? [...] tablet 01/11/2022 -- 08/08/21 -- Dexcom G[address] Light Wirer [facility] -- -- 11/15/21 -- See Admin Instructions. [...] 12/16/21 -- Take 40 mg by mouth. OF SCHOOL HOURS CARE WORKER Kishan Basilio Pharm.D., R.Ph. - 01/13/2022 7:42 AM CST Pharmacist Progress Note Reason for admission: Chest pain with rising troponins PMH: Ischemic heart disease w/ PCI to LAD (2014) Past Medical History: Diagnosis Date Abnormal Stress Test Anxiety Generalized Disorder Cataract Coronary Artery Disease [place] Vessel Diabetes Mellitus Type 2 (HCC) Hyperlipidemia [...] is above goal. Kishan Basilio Pharm.D., R.Ph. OF SCHOOL HOURS CARE WORKER documented in this encounter H&P Notes Troy [...] To 44 (HCC) #8 Atherosclerotic Heart Disease [place] Coronary Artery With Other Forms Angina Pectoris (Stable Angina/Angina Of Exertion) (HCC) #9 Arthritis Rheumatoid (HCC) #10 Anxiety #11 Elevated Troponin #12 Non-ST Elevation Myocardial Infarction (HCC) Ms. Adams is 76-year-old woman with known coronary artery disease status post a stent to her LAD in 2016. She is had a syndrome of progressive exertional angina to unstable angina over the last severaldays. She ruled in for non ST elevation myocardial infarction agree with the plan for angiography later today. She is been intolerant to multiple statins, and I think we should move to a PCSK9 inhibitor Troy Jackson M.D., Ph.D. 01/13/2022 OF SCHOOL HOURS CARE WORKER John Graves M.D. - 01/12/2022 9:06 PM CST Images from the original note were not included. CARDIOLOGY 2 ADMISSION NOTE SUBJECTIVE CHIEF COMPLAINT: Chest pain REASON FOR ADMISSION: Troponinemia HISTORY OF PRESENT ILLNESS: Marcial Adams is a 76 y.o. female [...] several years. This has been present since 2017 and she reports has been worsening in the past few months. She has been evaluated by cardiology for these symptoms and has been seen to be associated with deconditioning rather thanangina or ischemic heart disease. In the summer, she reports that she began to develop [...] plavix, 0.5mv IV ativan, and transferred to [facility] for further evaluation. Family history Father - [...] tablet 324 mg 324 mg oral Once ReuMartha, P.A.-C. 324 mg at 01/12/22 0927 [COMPLETED] clopidogreL tablet 600 mg (PLAVIX) 600 mg oral Once ReuMartha, P.A.-C. 600 mg at 01/12/22 1622 [COMPLETED] LORazepam injection 0.5 mg (ATIVAN) 0.5 mg intravenous Once ReuMartha, P.A.-C. 0.5 mg at 01/12/22 1719 [DISCONTINUED] heparin (porcine) 1,000 unit/mL injection 2,400 Units 30 Units/kg (Dosing Weight) intravenous PRN Martha Kidd, P.A.-C. [DISCONTINUED] heparin (porcine) 1,000 unit/mL injection 4,800 Units 60 Units/kg (Dosing Weight) intravenous PRN Martha Kidd P.A.-C. [DISCONTINUED] heparin (porcine) 100 Units/mL in NaCl 0.45% 250 mL infusion 0- 40 Units/kg/hr (Dosing Weight) intravenous Continuous Martha Kidd P.A.-C. 9.62 mL/hr at 01/12/22 1618 12 [...] initial presentation of ischemic heart disease in 2014. With her rising troponins and her story of chest pain with a new character, along with past history of ACS requiring stent in mid LAD, we have a strong suspicion of ACS. Patient has been aspirin and Plavix loaded, and started on heparin drip. lab associate request is orderedfor the AM, along with [...] Stable to discharge criteria (not met): Tests/procedures/consults OF SCHOOL HOURS CARE WORKER Petey Amato M.D., Ph.D. - 01/12/2022 9:06 PM CST Images from the original note were not included. ADMISSION HISTORY & PHYSICAL EXAM RST Cardiology 2 Service CHIEF COMPLAINT Chest pain HISTORY OF PRESENT ILLNESS Ms. Marcial Adams is a 76 y.o. female with CAD s/p BRITTANY to the [facility] who presents with chest pain and rising troponinemia concerning for NSTEMI. Her medical comorbidities include hypertension, hyperlipidemia, CAD s/p BRITTANY to [facility] (2014), T2DM (last A1c 8.6% in 01/2021), [...] 1 tablet, oral, Every 8 hours PRN BASAGLAR KWIKPEN U-100 INSULIN 100 unit/mL (3 [...] (FARXIGA) 5 mg, oral, Daily Dexcom G6 [address] Light Wirer misc See admin instructions dulaglutide (Trulicity) 0.75 [...] frequency recorded. UNABLE TO FIND Med Name: Mihaela VITALS BP 137/74 (BP Location: Right arm;Upper, [...] will be staffed with the Cardiology 2 data consultant, Dr. Jackson, within 24 hours. Please page [place] Card[place] 2 [place] [phone] with any questions. Petey Amato M.D., Ph.D. Internal Medicine, PGY-3 OF SCHOOL HOURS CARE WORKER documented in this encounter Consult Notes Mely [...] the cardiac rehab program. Patient referred to: [facility] [place] [facility] [address] [place] [id number] Recommend that the patient check with insurance company to verify coverage of the cost of cardiac rehabilitation program visits. OF SCHOOL HOURS CARE WORKER documented in this encounter Nursing Notes David Lacy RSusan - 01/14/2022 5:20 AM CST Shift Goals: [...] Goal: Maintain a safe environment Outcome: Progressing OF SCHOOL HOURS CARE WORKER Radha Smith R.N. - 01/12/2022 11:44 PM CST Shift [...] within reach. Call before you fall discussed OF SCHOOL HOURS CARE WORKER documented in this encounter OR Notes Brief Op Note - Tapan Barone M.B.B.S. - 01/13/2022 3:17 PM CST Images from the original note were not included. PATIENT: Marcial Adams : 1945 DATE OF SERVICE: 01/13/2022 Procedure: Coronary angiography. Successful PCI of mid LAD ISR with placement of 3.0 X 32 mm Synergy BRITTANY Implant Name Type Inv. Item Serial No. Auto Clutch Specialist Lot No. LRB No. Used Action STNT SYNERGY XD DE [id number] - [id number] Cardiac Stent STNT SYNERGY XD DE 3.00X32 [employer] [id number] N/A 1 Implanted Operators: Lee Meyer M.B.BJairoSJairo Indication: NSTEMI Access Site(s): Right radial artery, 6 [place] sheath(s). Removed at the end of the case with TR band placement for compression hemostasis. Complications: No Recommendations: -Aspirin 81mg daily indefinitely barring any complications -Clopidogrel 75 mg daily for 12 months as part of dual antiplatelet therapy from 01/13/2022 Please see data consultant cath operative report for further information. This is available under Document Viewer as Diagnostic Report - Cath/EP. Code status: FULL, until time of discharge If clinical status changes, please contact the proceduralist to discuss reversal of code status. Megan Mixon. 01/13/22 OF SCHOOL HOURS CARE WORKER documented in this encounter Miscellaneous Notes Hospital Course - Andrea Barros M.D. - 01/12/2022 11:17 PM CST Background Ms. Marcail Adams is a 76 y.o. female with CAD s/p BRITTANY to the [facility] who presents with chest pain and rising troponinemia concerning for NSTEMI. Her medical comorbidities include hypertension, hyperlipidemia, CAD s/p BRITTANY to [facility] (2014), T2DM (last A1c 8.6% in 01/2021), [...] Currie on 01/22 regarding management of CAD. OF SCHOOL HOURS CARE WORKER documented in this encounter Plan of Treatment Upcoming Encounters Date Type Specialty Care Team Description 01/22/2022 Office Visit Cardiovascular Disease Maritza Currie M.D. [address] [place], [place] [phone] (Wo rk) Scheduled Orders Name Type Priority Associated Diagnoses Order S chedule Cardiac Rehab Card Rehab Routine Non-ST Elevation 36 Occurre moes Program Myocardial Infarction starti ng 01/14/2022 ([facility]) until 01/14/2023 Percutaneous Transarterial Coronary Angioplasty Stat [...] Routine 01/14/2022 11:45 Results for this AM OUT OF SCHOOL HOURS CARE WORKER procedure are i n the results section. (TTE) 2D ECHO DOPPLER Routine 01/14/2022 9:49 Res ults for this COLOR AND CONTRAST AM OUT OF SCHOOL HOURS CARE WORKER procedure are in the results section. [id number] GENOTYPE Routine 01/14/2022 8:47 Results for this AM OUT OF SCHOOL HOURS CARE WORKER procedure are i n the results section. HEPARIN LEVEL ANTI-XA Routine 01/14/2022 6:42 Res ults for this ASSAY, P AM OUT OF SCHOOL HOURS CARE WORKER procedure are i n the results section. CBC WITHOUT Routine 01/14/2022 6:42 Results for this DIFFERENTIAL, B AM OUT OF SCHOOL HOURS CARE WORKER procedure ar e in the results section. BASIC METABOLIC PANEL, Routine 01/14/2022 6:42 Re sults for this S/P AM OUT OF SCHOOL HOURS CARE WORKER procedure are i n the results section. GLUCOSE POCT, B Routine 01/13/2022 11:17 Results for this PM OUT OF SCHOOL HOURS CARE WORKER procedure are i n the results section. GLUCOSE POCT, B Routine 01/13/2022 6:33 Results f or this PM OUT OF SCHOOL HOURS CARE WORKER procedure are i n the results section. GLUCOSE POCT, B Routine 01/13/2022 5:56 Results f or this PM OUT OF SCHOOL HOURS CARE WORKER procedure are i n the results section. CARDIAC CATHETERIZATION Routine 01/13/2022 4:20 Elevated Tropo jairo Results for this PM OUT OF SCHOOL HOURS CARE WORKER procedure are i n the results section. CARDIAC CATHETERIZATION Routine 01/13/2022 4:20 Elevated Tropo jairo Results for this PM OUT OF SCHOOL HOURS CARE WORKER procedure are i n the results section. CARDIAC CATHETERIZATION Routine 01/13/2022 4:20 Elevated Tropo jairo Results for this PM OUT OF SCHOOL HOURS CARE WORKER procedure are i n the results section. CARDIAC CATHETERIZATION Routine 01/13/2022 4:20 Elevated Tropo jairo Results for this PM OUT OF SCHOOL HOURS CARE WORKER procedure are i n the results section. ACT, POCT, B Routine 01/13/2022 4:01 Results for this PM OUT OF SCHOOL HOURS CARE WORKER procedure are i n the results section. ACT, POCT, B Routine 01/13/2022 3:50 Results for this PM OUT OF SCHOOL HOURS CARE WORKER procedure are i n the results section. GLUCOSE POCT, B Routine 01/13/2022 11:44 Results for this AM OUT OF SCHOOL HOURS CARE WORKER procedure are i n the results section. HEPARIN LEVEL ANTI-XA Timed 01/13/2022 10:49 Re sults for this ASSAY, P AM OUT OF SCHOOL HOURS CARE WORKER procedure are i n the results section. GLUCOSE POCT, B Routine 01/13/2022 8:01 Results f or this AM OUT OF SCHOOL HOURS CARE WORKER procedure are i n the results section. LIPID PANEL, S Routine 01/13/2022 4:51 Results fo r this AM OUT OF SCHOOL HOURS CARE WORKER procedure are i n the results section. RENAL FUNCTION PANEL, S Routine 01/13/2022 4:51 R esults for this AM OUT OF SCHOOL HOURS CARE WORKER procedure are i n the results section. NT-PRO B-TYPE Routine 01/13/2022 4:51 Results for this NATRIURETIC PEPTIDE AM OUT OF SCHOOL HOURS CARE WORKER procedur e are in (BNP), S the results section. HEPARIN LEVEL ANTI-XA Timed 01/13/2022 4:51 Res ults for this ASSAY, P AM OUT OF SCHOOL HOURS CARE WORKER procedure are i n the results section. CBC WITHOUT Routine 01/13/2022 4:51 Results for this DIFFERENTIAL, B AM OUT OF SCHOOL HOURS CARE WORKER procedure ar e in the results section. MAGNESIUM, S Routine 01/13/2022 4:51 Results for this AM OUT OF SCHOOL HOURS CARE WORKER procedure are i n the results section. HEMOGLOBIN A1C, B Routine 01/13/2022 4:51 Results for this AM OUT OF SCHOOL HOURS CARE WORKER procedure are i n the results section. TYPE AND SCREEN Routine 01/13/2022 4:50 Results f or this AM OUT OF SCHOOL HOURS CARE WORKER procedure are i n the results section. TROPONIN T, 5TH GEN, P Routine 01/13/2022 4:50 Re sults for this AM OUT OF SCHOOL HOURS CARE WORKER procedure are i n the results section. GLUCOSE POCT, B Routine 01/12/2022 11:39 Results for this PM OUT OF SCHOOL HOURS CARE WORKER procedure are i n the results section. ADULT OXYGEN THERAPY Routine 01/12/2022 9:39 PM OUT OF SCHOOL HOURS CARE WORKER ADULT OXYGEN THERAPY Routine 01/12/2022 9:39 PM OUT OF SCHOOL HOURS CARE WORKER documented in this encounter Results (ABNORMAL) Glucose, POCT (01/14/2022 11:45 AM OUT OF SCHOOL HOURS CARE WORKER) Analysis Performed At Patho logist Time Signature Glucose, POCT, 246 (H) 70 - 140 01/14/2022 PCLX B mg/dL 11:47 AM OUT OF SCHOOL HOURS CARE WORKER Site Capillary 01/14/2022 PCLX 11:47 AM OUT OF SCHOOL HOURS CARE WORKER Last Intake > 4 hours 01/14/2022 PCLX 11:47 AM OUT OF SCHOOL HOURS CARE WORKER Specimen Anatomical Collection Method Collection Time Receive d Time (Source) Location / / Volume Laterality Blood 01/14/2022 11:45 01/14/2022 AM OUT OF SCHOOL HOURS CARE WORKER 11:47 AM OUT OF SCHOOL HOURS CARE WORKER Unknown Provider LAB POCT ORDERABLES-MANUAL Performing Organization Address City/State/ZIP Code Phon e Number POC [facility] [address] [place] [address] PCLX [facility] [place] [address] [place] [facility] [address] (TTE) 2D ECHO DOPPLER COLOR AND CONTRAST (01/14/2022 9:49 AM OUT OF SCHOOL HOURS CARE WORKER) [facility] Method Time Signature Ejection Fraction 57 MC [...] / / Volume Laterality 01/14/2022 8:05 AM OUT OF SCHOOL HOURS CARE WORKER Impressions 01/14/2022 12:16 PM OUT OF SCHOOL HOURS CARE WORKER Status post coronary artery stent implantation (LAD, [...] Order-L evel Documents. Narrative 01/14/2022 12:16 PM OUT OF SCHOOL HOURS CARE WORKER For the complete report, see the Order-Level Documents. Hemodynamics Heart Rate: 71 BPM Blood Pressure: 115 / 67 mmHg ECG: Sinus rhythm Final Impressions 1. Status post coronary artery stent imp lantation (LAD, 13-JAN-2022). 2. Normal left ventricular chamber size, calculated 2-D biplane volumetric ejection fraction 57%. 3. Focal hypokinesis of the anteroseptum seen on the contrast-enhanced images, may correspond to a septal commission for the blind director seen on coronary angiography. 4. Grade 1a/3 [...] contrast-enhanced images, may correspond to a septal commission for the blind director seen on coronary angiography. 4. Grade 1a/3 [...] P450 2C19 Genotype, Varies (01/14/2022 8:47 AM OUT OF SCHOOL HOURS CARE WORKER) Component Value Ref Test Analysis Performed Pathologis t Range Method Time At Signature [id number] Genotype 02/1601/15/2022 DTL 4:14 PM OUT OF SCHOOL HOURS CARE WORKER [id number] Phenotype Normal (extensive) 01/15/2022 DT L metabolizer 4:14 PM OUT OF SCHOOL HOURS CARE WORKER Method Genotyping is performed using a PCR-based 5'-nuclease 01/15/2022 DTL assay. Fluorescently labeled detection probes anneal to the 4:14 PM target DNA. PCR is used to amplify the segment of DNA that OUT OF SCHOOL HOURS CARE WORKER contains the polymorphism. If the detection probe is an exact match to the target DNA, the 5'-nuclease polymerase degrades the probe, the maintainer plant dye is released from the effects of the quencher dye, and a fluorescent signal is detected. Genotypes are assigned based on the allele-specific fluorescent signals that are detected. (TaqMan SNP Genotyping Assays User Guide, [employer]) Disclaimer Targeted variant analysis was used to test for the pre sence 01/15/2022 DTL or absence of specific variants in the AMM9N83 gene:*2 4:14 PM (c.681G>A), *3 (c.636G>A), *4 (c.1A>G), *5 (c.1297C>T), *6 OUT OF SCHOOL HOURS CARE WORKER (c.395G>A), *7 (c.819+2T>A), *8 (c.358T>C), *9 (c.431G>A), *10 (c.680C>T), *17 (c.-806C>T), and *35 (c.332-23A>G in the absence of c.681G>A), based on GRCh37 [id number]. If no detectable TLC8A35 variant is found, a presumed *1 allele is assigned. This method will not detect all variants that result in altered XGT4L72 activity. Therefore, absence of a detectable gene variant does not rule out the possibility that a patient has an altered WYD7L88 metabolism status due to other NOK8E32 variants that cannot be detected with this method. Furthermore, when two or more gene variants are identified, the cis-trans status (whether the variants are on the same or opposite chromosomes) is not always known. In addition to a genetic basis for ZAP7W25 altered enzymatic activity, PTZ4Z00 enzyme activity can be inhibited by a [...] pre-transplant DNA specimen is recommended for testing. XOR8F28 genetic test results in patients who have undergone liver transplantation may not accurately reflect the patient's FHS2A64 status. This test was developed and its performance characteristics determined by [facility] in a manner consistent with CLIA requirements. This test has not been cleared or approved by the U.S. Food and Drug Administration. Reviewed by Gita Sanches 01/15/2022 CHRISSIE Hartman, Ph.D. 4:14 PM OUT OF SCHOOL HOURS CARE WORKER Interpretation With prodrugs that are activated by TVH3X71, such as 01/15/2022 CHRISSIE clopidogrel, normal drug activation by EPP7A76 is expected 4:14 PM to occur. OUT OF SCHOOL HOURS CARE WORKER With drugs that are inactivated by FBM6L65, such as citalopram, normal inactivation is expected. Specimen Anatomical Collection Method Collection Time Receive d Time (Source) Location / / Volume Laterality Blood (Blood, 01/14/2022 8:47 AM 01/15/20 9:48 Venous) OUT OF SCHOOL HOURS CARE WORKER AM OUT OF SCHOOL HOURS CARE WORKER Narrative This result has an attachment that is no t available. Luis Alberto Bernardo M.D. LAB GENETIC TESTING Performing Organization Address City/State/[facility] Code Phon e Number [facility] - [address] [place] [address] [place] [address] [place] [address] Laboratories-[address] (ABNORMAL) CBC without Differential (01/14/2022 6:42 AM OUT OF SCHOOL HOURS CARE WORKER) Patholo gist Method Time Signature Hemoglobin 10.2 (L) 11.6 - 01/14/2022 DTL 15.0 g/dL 7:14 AM OUT OF SCHOOL HOURS CARE WORKER Hematocrit 33.0 (L) 35.5 - 01/14/2022 DTL 44.9 % 7:14 AM OUT OF SCHOOL HOURS CARE WORKER Erythrocytes 3.48 (L) 3.92 - 01/14/2022 DTL 5.13 7:14 AM OUT OF SCHOOL HOURS CARE WORKER x10(12)/L MCV 94.8 78.2 - 01/14/2022 DTL 97.9 fL 7:14 AM OUT OF SCHOOL HOURS CARE WORKER RBC Distrib Width 14.6 12.2 - 01/14/2022 DTL 16.1 % 7:14 AM OUT OF SCHOOL HOURS CARE WORKER Platelet Count 209 157 - 371 01/14/2022 DTL x10(9)/L 7:14 AM OUT OF SCHOOL HOURS CARE WORKER Leukocytes 8.5 3.4 - 9.6 01/14/2022 DTL x10(9)/L 7:14 AM OUT OF SCHOOL HOURS CARE WORKER Specimen Anatomical Collection Method Collection Time Receive d Time (Source) Location / / Volume Laterality Blood (Blood, 01/14/2022 6:42 AM 01/15/20 7:03 Venous) OUT OF SCHOOL HOURS CARE WORKER AM OUT OF SCHOOL HOURS CARE WORKER Troy Jackson M.D., Ph.D. LAB BLOOD ADD-ON Performing Organization Address City/State/ZIP Code Phon e Number [facility] - [address] [place] [address] [place] [address] [facility]ly [facility]-[address] (ABNORMAL) Basic Metabolic Panel (01/14/2022 6:42 AM OUT OF SCHOOL HOURS CARE WORKER) Analysis Performed At Patho logist Time Signature Potassium, S 4.0 3.6 - 5.2 01/14/2022 DTL mmol/L 7:30 AM OUT OF SCHOOL HOURS CARE WORKER Sodium, S 143 135 - 145 01/14/2022 DTL mmol/L 7:30 AM OUT OF SCHOOL HOURS CARE WORKER Chloride, S 109 (H) 98 - 107 01/14/2022 DTL mmol/L 7:30 AM OUT OF SCHOOL HOURS CARE WORKER Bicarbonate, S 23 22 - 29 01/14/2022 DTL mmol/L 7:30 AM OUT OF SCHOOL HOURS CARE WORKER Anion Gap 11 7 - 15 01/14/2022 DTL 7:30 AM OUT OF SCHOOL HOURS CARE WORKER BUN (Blood Urea 24 (H) 6 - 21 01/14/2022 DTL Nitrogen), S mg/dL 7:30 AM OUT OF SCHOOL HOURS CARE WORKER Creatinine 1.49 (H) 0.59 - 01/14/2022 DTL 1.04 mg/dL 7:30 AM OUT OF SCHOOL HOURS CARE WORKER Estimated GFR 36 (L) >=60 01/14/2022 DTL (eGFR) mL/min/BSA 7:30 AM OUT OF SCHOOL HOURS CARE WORKER Comment: Estimated GFR calculated using the 2020 CKD_EPI creatinine equation. Calcium, Total, S 9.2 8.8 - 10.2 mg/dL 01/14/2022 7:30 AM OUT [employer] HOU[employer] C[employer] WORKER DTL Glucose, S 134 70 - 140 mg/dL 01/14/2022 7:30 AM OUT [employer] HOU[employer] C[employer] WORKER D TL Specimen Anatomical Collection Method Collection Time Receive d Time (Source) Location / / Volume Laterality Blood (Blood, 01/14/2022 6:42 AM 01/15/20 7:14 Venous) OUT [employer] HOU[employer] C[employer] WORKER AM OUT OF [employer] HOURS CARE WORKER Tory Jackson M.D., Ph.D. LAB BLOOD ADD-ON Performing Organization Address City/State/ZIP Code Phon e Number [facility] - [address] [place], [place] [address] [place] [address] Laboratories-[facility] [address] [facility] Heparin Anti-Xa Assay (01/14/2022 6:42 AM OUT [employer] HOU[employer] CARE WORKER) P athologist Signature Heparin <0.10 IU/mL 01/14/2022 DTL Anti-Xa, P 8:59 AM [employer] HOU[employer] C[employer] WORKER Comment: UFH therapeutic range: ?? 0.30-0.70 IU/mL [...] (Blood, 01/14/2022 6:42 AM 01/15/20 7:14 Venous) OUT [employer] HOU[employer] CARE WORKER AM OUT [employer] HOU[employer] CARE WORKER Troy Jackson M.D., Ph.D. LAB BLOOD NON ADD-ON Performing Organization Address City/[facility]/ZIP [facility] [place], [place] Phon e Number [facility] - [address] [place], [place] [address] [place] [address] [facility] [address] (ABNORMAL) Glucose, POCT (01/13/2022 11:17 PM OUT [employer] HOU[employer] CARE WORKER) Analysis Performed At Patho logist Time Signature Glucose, POCT, 179 (H) 70 - 140 01/13/2022 PCLX B mg/dL 11:23 PM [employer] C[employer] WORKER Site Capillary 01/13/2022 PCLX 11:23 PM [employer] HOU[employer] C[employer] WORKER Last Intake 2-3 hours 01/13/2022 PCLX 11:23 PM [employer] HOU[employer] C[employer] WORKER Specimen Anatomical Collection Method Collection Time Receive d Time (Source) Location / / Volume Laterality Blood 01/13/2022 11:17 01/13/2022 PM [employer] HOU[employer] C[employer] WORKER 11:23 PM OUT [employer] HOU[employer] C[employer] WORKER Unknown Provider LAB POCT ORDERABLES-MANUAL Performing Organization Address City/[facility] Phon e Number [facility] [address] [place] [address] [place] [address] [place] [facility] [address] Glucose, POCT (01/13/2022 6:33 PM [employer] WORKER) P athologist Signature Glucose, POCT, 98 70 - 140 01/13/2022 PCLX B mg/dL 6:35 PM [employer] WORKER Last Intake NPO 01/13/2022 PCLX 6:35 PM [employer] HOU[employer] C[employer] WORKER Specimen Anatomical Collection Method Collection Time Receive d Time (Source) Location / / Volume Laterality Blood 01/13/2022 6:33 PM 6:35 [employer] HOU[employer] C[employer] WORKER PM OUT [employer] HOU[employer] CARE WORKER Unknown Provider LAB POCT ORDERABLES-MANUAL Performing Organization Address City/[facility]/ZIP [facility] [place], [place] Phon e Number [facility] [address] [place] [address] [place] [address] [place] [facility] [address] (ABNORMAL) Glucose, POCT (01/13/2022 5:56 PM OUT [employer] HOU[employer] C[employer] WORKER) P athologist Signature Glucose, POCT, 65 (L) 70 - 140 01/13/2022 PCLX B mg/dL 5:59 PM [employer] HOU[employer] C[employer] WORKER Specimen Anatomical Collection Method Collection Time Receive d Time (Source) Location / / Volume Laterality Blood 01/13/2022 5:56 PM 5:59 [employer] HOU[employer] CARE WORKER PM OUT [employer] HOU[employer] CARE WORKER Unknown Provider LAB POCT ORDERABLES-MANUAL Performing Organization Address City/State/ZIP Code Phon e Number [facility] [address] [place] [address] PCLX [facility] [address] [place] [facility] [address] CORONARY ANGIOGRAPHY, LEFT HEART CATHETERIZATION, PERCUTANEOUS CORONARY ANGIOPLASTY, STENT PLACEMENT(01/13/2022 4:20 PM OUT [employer] HOU[employer] C[employer] WORKER) Anatomical Region Laterality Modality X-Ray Angiography Specimen (Source) Anatomical Collection Method Collection Time Re ceived Time Location / / Volume Laterality 01/13/2022 3:36 PM [employer] HOU[employer] C[employer] WORKER Narrative 01/14/2022 1:47 PM OUT [employer] HOU[employer] CARE WORKER For the complete report, see the Order-L [...] (Activated Clotting Time), POCT (01/13/2022 4:01 PM OUT [employer] HOU[employer] C[employer] WORKER) athologist Signature Activated 239 (H) 84 - 139 01/13/2022 PCSM Clotting Time, sec 4:06 PM OUT [employer] HOU[employer] C[employer] WORKER POCT Specimen Anatomical Collection Method Collection Time Receive d Time (Source) Location / / Volume Laterality Blood 01/13/2022 4:01 PM 2 4:06 OUT [employer] HOU[employer] CARE WORKER PM OUT [employer]OL HOURS CARE WORKER Unknown Provider LAB POCT ORDERABLES - DEVICE Performing Organization Address City/[facility] Phon e Number POC [facility] [address] [place], [place] [address] LABS [place], [place] [id number] [place] [address] (ABNORMAL) ACT (Activated Clotting Time), POCT (01/13/2022 3:50 PM [employer] WORKER) athologist Signature Activated 191 (H) 84 - 139 01/13/2022 PCSM Clotting Time, sec 3:54 PM [employer] HOU[employer] C[employer] WORKER POCT Specimen Anatomical Collection Method Collection Time Receive d Time (Source) Location / / Volume Laterality Blood 01/13/2022 3:50 PM 2 3:55 OUT [employer] S[employer] HOU[employer] CARE WORKER PM OUT [employer] HOU[employer] CARE WORKER Unknown Provider LAB POCT ORDERABLES - DEVICE Performing Organization Address City/[facility] Phon e Number [facility]OC [facility] [address] [place], [place] [address] [facility]S [place], [place] [id number] [place] [address] Glucose, POCT (01/13/2022 11:44 AM [employer] HOU[employer] WORKER) athologist Signature Glucose, POCT, 104 70 - 140 01/13/2022 PCLX B mg/dL 12:32 PM [employer] WORKER Specimen Anatomical Collection Method Collection Time Receive d Time (Source) Location / / Volume Laterality Blood 01/13/2022 11:44 01/13/2022 AM [employer] HOU[employer] C[employer] WORKER 12:32 PM OUT [employer] HOU[employer] CARE WORKER Unknown Provider LAB POCT ORDERABLES-MANUAL Performing Organization Address City/State/ZIP Code Phon e Number [facility] [address] [place] [address] PCLX [facility] [place] [address] [place] [facility] [address] Heparin Anti-Xa Assay (01/13/2022 10:49 AM OUT [employer] HOU[employer] C[employer] WORKER) athologist Signature Heparin 0.28 IU/mL 01/13/2022 DT Anti-Xa, P 11:21 AM [employer] HOU[employer] C[employer] WORKER Comment: UFH therapeutic range: ?? 0.30-0.70 IU/mL [...] Blood (Blood, 01/13/2022 10:49 01/13/2022 Venous) AM OUT [employer] HOU[employer] CARE WORKER 11:09 AM OUT [employer] HOU[employer] CARE WORKER John Graves M.D. LAB BLOOD NON ADD-ON Performing Organization Address City/State/ZIP Code Phon e Number [facility] - [address] [place], [place] [address] [place] [address] [facility] [address] Glucose, POCT (01/13/2022 8:01 AM OUT [employer] HOU[employer] C[employer] WORKER) athologist Signature Glucose, POCT, 139 70 - 140 01/13/2022 PCLX B mg/dL 8:31 AM [employer] HOU[employer] C[employer] WORKER Specimen Anatomical Collection Method Collection Time Receive d Time (Source) Location / / Volume Laterality Blood 01/13/2022 8:01 AM 8:31 OUT [employer]OL HOU[employer] CARE WORKER AM OUT [employer] HOU[employer] CARE WORKER Unknown Provider LAB POCT ORDERABLES-MANUAL Performing Organization Address City/State/ZIP Code Phon e Number [facility] [address] [place] [address] [place] [address] [place] [facility] [address] Heparin Anti-Xa Assay (01/13/2022 4:51 AM OUT [employer] HOU[employer] C[employer] WORKER) athologist Signature Heparin 0.31 IU/mL 01/13/2022 DT Anti-Xa, P 5:50 AM [employer] HOU[employer] C[employer] WORKER Comment: UFH therapeutic range: ?? 0.30-0.70 IU/mL [...] (Blood, 01/13/2022 4:51 AM 01/14/20 5:36 Venous) [employer] HOU[employer] CARE WORKER AM OUT [employer] HOURS CARE WORKER Petey Amato M.D., Ph.D. LAB BLOOD NON ADD-ON Performing Organization Address City/State/ZIP Code Phon e Number [facility] - [facility] [address] [place], [place] [address] [place] [address] [facility] [address] [facility] (ABNORMAL) Lipid Panel (01/13/2022 4:51 AM OUT [employer] HOU[employer] CARE WORKER) athologist Signature Triglycerides 346 (H) mg/dL 01/13/2022 DT 7:12 AM OUT [employer] HOURS CARE WORKER Comment: ----REFERENCE VALUE---- Normal: <150 mg/dL Borderline High: 150-199 mg/dL High: 200-499 mg/dL Very High: > or =500 mg/dL Cholesterol, Total 245 (H) mg/dL 01/13/2022 7:12 AM CS T DTL Comment: ----REFERENCE VALUE---- Desirable: < 200 mg/dL Borderline High: 200 - 239 mg/dL High: > or = 240 mg/dL Cholesterol, LDL, Calculated 136 (H) mg/dL 01/13/2022 7:12 AM OUT [employer] HOURS C[employer] WORKER DTL Comment: ----REFERENCE VALUE---- Desirable: <100 mg/dL Above Desirable: 100-129 mg/dL Borderline High: 130-159 mg/dL High: 160-189 mg/dL Very High: >=190 mg/dL ----ADDITIONAL INFORMATION---- LDL cholesterol calculated using the Hills/NIH equation. Cholesterol, HDL, S 46 (L) >=50 mg/dL 01/13/2022 7:12 AM OUT [employer] HOU[employer] CARE WORKER DTL Cholesterol, Non-HDL, Calculated 199 (H) mg/dL 7:12 AM OUT [employer] HOU[employer] CARE WORKER DTL Comment: ----REFERENCE VALUE---- Desirable: <130 mg/dL Above Desirable: 130-159 mg/dL Borderline High: 160-189 mg/dL High: 190-219 mg/dL Very High: > or =220 mg/dL Fasting (8 HR or more) No 01/13/2022 6:14 A M OUT [employer]OL HOU[employer] CARE WORKER DTL Specimen Anatomical Collection Method Collection Time Receive d Time (Source) Location / / Volume Laterality Blood (Blood, 01/13/2022 4:51 AM 01/14/20 6:14 Venous) OUT [employer] HOU[employer] CARE WORKER AM OUT [employer] HOURS CARE WORKER Troy Jackson M.D., Ph.D. LAB BLOOD ADD-ON Performing Organization Address City/State/ZIP Code Phon e Number [facility] - [address] [place], [place] [address] [place] [address] [facility] [address] (ABNORMAL) Hemoglobin A1c (01/13/2022 4:51 AM OUT [employer] S[employer]OL HOURS CARE WORKER) P athologist Signature Hemoglobin A1c, 8.8 (H) 4.0 - 5.6 01/13/2022 DTL B % 6:34 AM OUT [employer] S[employer]OL HOURS CARE WORKER Comment: Hemoglobin A1c values greater than or eq ual to 6.5 percent are diagnostic for diabetes mellitus. ?? Diagnosis should be confirmed by repeat testing. ??In diabet ic patients, HbA1c goals should be discussed with healthcar e provider. Specimen Anatomical Collection Method Collection Time Receive d Time (Source) Location / / Volume Laterality Blood (Blood, 01/13/2022 4:51 AM 01/14/20 5:37 Venous) OUT [employer] HOU[employer] CARE WORKER AM OUT OF [employer] HOURS CARE WORKER Troy Jackson M.D., Ph.D. LAB BLOOD ADD-ON Performing Organization Address City/State/ZIP Code Phon e Number [facility] - [address] (ABNORMAL) NT-Pro B-Type Natriuretic Peptide (BNP) (01/13/2022 4:51 AM OUT [employer] HOU[employer] CARE WORKER) athologist Signature NT-Pro BNP 1630 (H) <=540 pg/mL 01/13/2022 DTL 7:12 AM OUT [employer] S[employer] HOU[employer] CARE WORKER Comment: NT-proBNP values less than 300 pg/mL [...] 01/13/2022 4:51 AM 01/14/20 22 6:14 Venous) OUT [employer] S[employer] HOU[employer] CARE WORKER AM OUT [employer] HOURS CARE WORKER Troy Jackson M.D., Ph.D. LAB BLOOD ADD-ON Performing Organization Address City/[facility]/ZIP Code Phon e Number [facility] - [id number] [place] [address] Magnesium (01/13/2022 4:51 AM OUT [employer] S[employer]OL HOURS CARE WORKER) athologist Signature Magnesium, S 1.9 1.7 - 2.3 01/13/2022 DTL mg/dL 7:12 AM OUT [employer] HOU[employer] CARE WORKER Specimen Anatomical Collection Method Collection Time Receive d Time (Source) Location / / Volume Laterality Blood (Blood, 01/13/2022 4:51 AM 01/14/20 22 6:14 Venous) OUT [employer] HOU[employer] CARE WORKER AM OUT OF [employer]OL HOURS CARE WORKER Troy Jackson M.D., Ph.D. LAB BLOOD ADD-ON Performing Organization Address City/State/ZIP Code Phon e Number [facility] - [address] [address] [facility] [address] [facility] (ABNORMAL) Renal Function Panel (01/13/2022 4:51 AM OUT [employer] S[employer]OL HOURS CARE WORKER) Analysis Performed At Patho logist Time Signature Potassium, S 4.1 3.6 - 5.2 01/13/2022 DTL mmol/L 7:12 AM [employer] HOU[employer] C[employer] WORKER Sodium, S 144 135 - 145 01/13/2022 DTL mmol/L 7:12 AM [employer] HOU[employer] C[employer] WORKER Chloride, S 109 (H) 98 - 107 01/13/2022 DTL mmol/L 7:12 AM [employer] HOU[employer] C[employer] WORKER Bicarbonate, S 22 22 - 29 01/13/2022 DTL mmol/L 7:12 AM OUT [employer] HOU[employer] C[employer] WORKER Anion Gap 13 7 - 15 01/13/2022 DTL 7:12 AM OUT [employer] HOU[employer] CARE WORKER BUN (Blood Urea 27 (H) 6 - 21 01/13/2022 DTL Nitrogen), S mg/dL 7:12 AM OUT [employer] HOU[employer] C[employer] WORKER Creatinine 1.56 (H) 0.59 - 01/13/2022 DTL 1.04 mg/dL 7:12 AM OUT [employer] HOU[employer] CARE WORKER Estimated GFR 34 (L) >=60 01/13/2022 DTL (eGFR) mL/min/BSA 7:12 AM OUT [employer] HOU[employer] CARE WORKER Comment: Estimated GFR calculated using the 2020 CKD_EPI creatinine equation. Calcium, Total, S 9.3 8.8 - 10.2 mg/dL 01/13/2022 7:12 AM OUT [employer] HOU[employer] C[employer] WORKER DTL Glucose, S 152 (H) 70 - 140 mg/dL 01/13/2022 7:12 AM OUT [employer] HOU[employer] C[employer] WORKER D TL Albumin, S 3.8 3.5 - 5.0 g/dL 01/13/2022 7:12 AM OUT [employer] HOU[employer] C[employer] WORKER D TL Phosphorus (Inorganic), S 3.4 2.5 - 4.5 mg/dL 01/14/20 7:12 AM OUT [employer] S[employer] HOURS CARE WORKER DTL Specimen Anatomical Collection Method Collection Time Receive d Time (Source) Location / / Volume Laterality Blood (Blood, 01/13/2022 4:51 AM 01/14/20 6:14 Venous) OUT [employer] S[employer] HOU[employer] CARE WORKER AM OUT OF S[employer]OL HOURS CARE WORKER Troy Jackson M.D., Ph.D. LAB BLOOD ADD-ON Performing Organization Address City/State/ZIP Code Phon e Number [facility] - [facility] [address] [place], [place] [address] [place] [address] [place] [address] [facility] (ABNORMAL) CBC without Differential (01/13/2022 4:51 AM OUT [employer]OL HOURS CARE WORKER) [facility] Method Time Signature Hemoglobin 9.8 (L) 11.6 - 01/13/2022 DTL 15.0 g/dL 5:51 AM OUT [employer] HOU[employer] CARE WORKER Hematocrit 32.1 (L) 35.5 - 01/13/2022 DTL 44.9 % 5:51 AM OUT [employer] S[employer]OL HOURS CARE WORKER Erythrocytes 3.42 (L) 3.92 - 01/13/2022 DTL 5.13 5:51 AM OUT [employer] S[employer]OL HOURS CARE WORKER x10(12)/L MCV 93.9 78.2 - 01/13/2022 DTL 97.9 fL 5:51 AM OUT [employer] HOU[employer] C[employer] WORKER RBC Distrib Width 14.4 12.2 - 01/13/2022 DTL 16.1 % 5:51 AM OUT [employer] S[employer]OL HOURS CARE WORKER Platelet Count 199 157 - 371 01/13/2022 DTL x10(9)/L 5:51 AM OUT OF S[employer]OL HOURS CARE WORKER Leukocytes 8.7 3.4 - 9.6 01/13/2022 DTL x10(9)/L 5:51 AM OUT [employer] S[employer]OL HOURS CARE WORKER Specimen Anatomical Collection Method Collection Time Receive d Time (Source) Location / / Volume Laterality Blood (Blood, 01/13/2022 4:51 AM 01/14/20 5:37 Venous) OUT [employer] S[employer]OL HOU[employer] CARE WORKER AM OUT OF S[employer]OL HOURS CARE WORKER Av Hawkins M.D. LAB BLOOD ADD-ON Performing Organization Address City/State/ZIP Code Phon e Number [facility] - [address] [place] [address] [place] [address] [facility]ly [facility] [address] [facility] Type and Screen (with reflex Antibody ID) (01/13/2022 4:50 AM OUT OF SCHOOL HOURS CARE WORKER) [facility] Method Time Signature ABORh A Neg Not 01/13/2022 STRM applicable 5:50 AM OUT [employer] S[employer]OL HOURS CARE WORKER Antibody Negative Negative 01/13/2022 STRM Screen 6:02 AM OUT OF S[employer]OL HOURS CARE WORKER Type & Screen 01/16/2022 01/13/2022 STRM Expiration 23:59 5:50 AM OUT [employer] S[employer]OL HOURS CARE WORKER Testing Manas DEFAULT 01/13/2022 STRM Location 5:24 AM OUT OF S[employer]OL HOURS CARE WORKER Specimen Anatomical Collection Method Collection Time Receive d Time (Source) Location / / Volume Laterality Blood (Blood, 01/13/2022 4:50 AM 01/14/20 5:24 Venous) OUT [employer] S[employer]OL HOURS CARE WORKER AM OUT OF S[employer]OL HOURS CARE WORKER Troy Jackson M.D., Ph.D. LAB BLOOD BANK TEST ORD ERABLES Performing Organization Address City/[facility]/ZIP Code Phon e Number [facility] - [address] [place], [place] [address] [place] [address] [facility]ly [facility] [address] [facility] (ABNORMAL) Troponin T, 5th Generation (01/13/2022 4:50 AM OUT [employer] S[employer]OL HOURS CARE WORKER) athologist Signature Troponin T, 107 (H) <=10 ng/L 01/13/2022 [facility] 5th gen 5:14 AM OUT OF S[employer]OL HOURS CARE WORKER Comment: Consider acute myocardial injur y Specimen Anatomical Collection Method Collection Time Receive d Time (Source) Location / / Volume Laterality Blood (Blood, 01/13/2022 4:50 AM 01/14/20 4:57 Venous) OUT [employer] S[employer]OL HOURS CARE WORKER AM OUT OF S[employer]OL HOURS CARE WORKER Troy Jackson M.D., Ph.D. LAB BLOOD ADD-ON Performing Organization Address City/[facility]/ZIP Code Phon e Number [facility] - [address] [place], [place] [address] [place] [address] [facility]ly [facility] [address] (ABNORMAL) Glucose, POCT (01/12/2022 11:39 PM OUT OF S[employer]OL HOURS CARE WORKER) athologist Signature Glucose, POCT, 223 (H) 70 - 140 01/13/2022 PCLX B mg/dL 12:05 AM OUT [employer] S[employer]OL HOURS CARE WORKER Specimen Anatomical Collection Method Collection Time Receive d Time (Source) Location / / Volume Laterality Blood 01/12/2022 11:39 01/13/2022 PM OUT OF SCHOOL HOURS CARE WORKER 12:05 AM OUT OF S[employer]OL HOURS CARE WORKER Unknown Provider LAB POCT ORDERABLES-MANUAL Performing Organization Address City/[facility]/ZIP Code Phon e Number [facility] [address] [place] [address] [place] [address] [facility] 200 [facility] documented in this encounter Visit Diagnoses Diagnosis Non-ST Elevation Myocardial Infarction ( HCC) - Primary Elevated Troponin Non-ST Elevation Myocardial Infarction ( HCC) Percutaneous Transarterial Coronary Vero oplasty Status Post Coronary Stent Status Post Ischemic Heart Chronic Disease Elevated Troponin Anemia Anxiety Arthritis Rheumatoid (HCC) Atherosclerotic Heart Disease [place] Cor onary Artery With Other Forms Angina [...] 100 mg (ZYLOPRIM) Given 01/14/2022 9:47 AM OUT [employer] S[employer]OL HOURS CARE WORKER 100 mg 100 mg, oral, Daily, First dose on Thu01/13/22 at 0900 Given 01/13/2022 9:34 AM OUT OF S[employer]OL HOU[employer] CARE WORKER [address] tablet 81 mg Given 01/14/2022 9:47 AM OUT [employer] S[employer]OL HOURS CARE WORKER 81 mg 81 mg, oral, Daily, First dose on Thu01/13/22 at 0900, Swallow whole. Do NOT crush, chew, or split tablet. Given 01/13/2022 9:34 AM OUT [employer] S[employer]OL HOURS CARE WORKER 81 mg atropine injection 0.5 mg 0.5 [...] 75 mg (PLAVIX) Given 01/14/2022 9:47 AM OUT [employer] S[employer]OL HOURS CARE WORKER 75 mg 75 mg, oral, Daily, First dose on Thu01/13/22 at 0900 Given 01/13/2022 9:34 AM OUT [employer]OL HOU[employer] CARE WORKER 75 mg docusate sodium capsule 100 mg (COLACE) 100 mg, oral, 2 times daily PRN, constip ation, Starting on Thu01/14/22 at 1316, Postprocedure (CV), Do NOT crush or chew. fentaNYL injection (SUBLIMAZE) Given 01/13/2022 4:06 PM OUT [employer] HOU[employer] C[employer] WORKER 25 mcg As needed, Starting on Thu01/13/22 at 1540, Intraprocedure (CV) Given 01/13/2022 3:43 PM OUT [employer] S[employer]OL HOURS CARE WORKER 25 mcg Given 01/13/2022 3:40 PM OUT [employer]OL HOU[employer] CARE WORKER 50 mcg fentaNYL injection 25 mcg (SUBLIMAZE) 25 mcg, intravenous, Once as needed, mod erate pain or score 4-6 of 10, severe pain or score 7-10 of 10, Until sheath remova l., Starting on Thu01/14/22 at 1316, For 1 dose, Postprocedure (CV) heparin (porcine) 1,000 unit/mL Given 01/13/2022 4:06 PM OUT [employer] S[employer]OL HOURS CARE WORKER 2,0 00 Units injection As needed, Starting on Thu01/13/22 at 1540, Intraprocedure (CV) Given 01/13/2022 3:51 PM OUT OF S[employer]OL HOURS CARE WORKER 2,000 Units Given 01/13/2022 3:40 PM OUT OF S[employer]OL HOURS CARE WORKER 3,000 Units insulin aspart U-100 injection 0-7 Units (NovoLOG [...] Insulin orders insulin glargine injection Given 01/13/2022 9:12 PM OUT [employer] S[employer]OL HOU[employer] C[employer] WORKER 11 Units Left Upper Abdomen 11 Units 11 Units, subcutaneous, Daily at bedtime, First dose on Thu01/13/22 at 2100 iohexoL 350 mg iodine/mL solution (OMNIP AQUE) Given 01/13/2022 4:17 PM OUT [employer]OL HOURS CARE WORKER 80 mL As needed, Starting on Thu01/13/22 at 1617, Intraprocedure (CV) leflunomide tablet 20 mg (ARAVA) Given 01/14/2022 9:47 AM OUT OF S[employer]OL HOURS CARE WORKER 20 mg 20 mg, oral, Daily, First dose on Thu01/13/22 at 0900 Given 01/13/2022 9:45 AM OUT OF S[employer]OL HOURS CARE WORKER 20 mg levothyroxine tablet 75 mcg (SYNTHROID, Given 01/14/2022 6:24 AM OUT OF SCHOOL HOURS CARE WORKER 75 mcg LEVOTHROID) 75 mcg, oral, Daily before breakfast, First dose (after last modification) on Thu01/13/22 at 0700 Given 01/13/2022 7:09 AM OUT OF S[employer]OL HOURS CARE WORKER 75 mcg lidocaine 10 mg/mL (1 %) injection Given 01/13/2022 3:38 PM OUT OF S[employer]OL HOURS CARE WORKER 1 mL Right Wrist (XYLOCAINE) As needed, Starting on Thu01/13/22 at 1538, [...] 12.5 mg (LOPRESSOR) Given 01/14/2022 9:47 AM OUT OF SCHOOL HOURS CARE WORKER 12.5 mg 12.5 mg, oral, 2 times daily, First dose on Thu01/12/22 at 2300 Given 01/13/2022 9:11 PM OUT OF SCHOOL HOURS CARE WORKER 12.5 mg Given 01/13/2022 9:34 AM OUT OF S[employer]OL HOURS CARE WORKER 12.5 mg midazolam (PF) injection (VERSED) Given 01/13/2022 4:06 PM OUT OF SCHOOL HOURS CARE WORKER 0.5 mg As needed, Starting on Thu01/13/22 at 1540, Intraprocedure (CV) Given 01/13/2022 3:43 PM OUT OF SCHOOL HOURS CARE WORKER 0.5 mg Given 01/13/2022 3:40 PM OUT OF S[employer]OL HOURS CARE WORKER 1 mg naloxone injection 0.2 mg (NARCAN) 0.2 mg, intravenous, As needed, respirat ory depression, Starting on Thu01/14/22 at 1316, Postprocedure (CV), For RASS Score -4 or less, respiratory rate of less than 8 breaths/min. Notify provider/service and rapid respo nse team (if available at institution). nitroglycerin in D5W 100 mcg/mL syringe (for Given 4:06 PM OUT [employer] S[employer]OL HOURS CARE WORKER 200 mcg intra-arterial use only) As needed, Starting on Thu01/13/22 at 1606, Intraprocedure (CV) nitroglycerin SL tablet (NITROSTAT) Given 01/13/2022 3:39 PM OUT OF S[employer]OL HOURS CARE WORKER 0.4 mg As needed, Starting on Thu01/13/22 at 1539, Intraprocedure (CV) pantoprazole DR tablet 40 mg (PROTONIX) Given 01/14/2022 6:24 AM OUT OF S[employer]OL HOURS CARE WORKER 40 mg 40 mg, oral, Daily before breakfast, First dose on Thu01/13/22 at 0700, Swallow whole. Do NOT crush, chew, or split tablet. Given 01/13/2022 7:10 AM OUT OF S[employer]OL HOURS CARE WORKER 40 mg promethazine injection 6.25 mg (PHENERGA [...] injection 3 mL Given 01/14/2022 9:47 AM OUT [employer] S[employer]OL HOURS CARE WORKER 3 mL 3 mL, intravenous, Every 12 hours scheduled, First dose on Thu01/13/22 at 0900, Peripheral Intravenous Catheter and Rapid Infusion Catheter, when no infusion to maintain patency Given 01/13/2022 9:12 PM OUT [employer]OL HOU[employer] CARE WORKER 3 mL sulfur hexafluoride microspheres injection Given 01/14/2022 9:29 AM OUT OF SCHOOL HOURS CARE WORKER 2.5 mL (LUMASON) intravenous, As needed, contrast, Starting on Thu01/14/22 at 0929, Intraprocedure - Diagnostic, See protocol. Reconstitute each 25 mg vial with 5 mL NS. documented in this encounter Active and Recently Administered Medications Times are shown in OUT OF SCHOOL HOURS CARE WORKER. Scheduled Medication Order 01/12/2022 01/13/2022 01/14/2022 allopurinoL tablet 100 mg (ZYLOPRIM) 093 4 (Given - Provider: Sheila Ponce R.N.)1417 (APR Hold - Provider: Transfer Provider, Automatic - Reason: Patient not available)1657 (APR Unhold - Provider: Transfer Provider, Automatic) 0947 (Given - Provider: Elidia Orozco R.N.) 100 mg, oral, Daily, First dose on Thu01/13/22 at 0900 aspirin chewable tablet 243 mg (COMPLETED) 1427 (Given - Provider: Traci Alanis R.N.) 243 mg, oral, Once, On Thu01/13/22 at 1430, For 1 dose, Preproc edure (CV) aspirin DR tablet 81 mg 0934 (Given - Pr ovider: Sheila Ponce R.N.)1417 (APR Hold - Provider: Transfer Provider, Automatic - Reason: Patient not available)1657 (MAR Unhold - Provider: Transfer Provider, Automatic) 0947 (Given - Provider: Elidia Orozco R.N.) 81 mg, oral, Daily, First dose on Thu at 0900, Swallow whole. Do NOT crush, chew, or split tablet. clopidogreL tablet 75 mg (PLAVIX) 0934 ( Given - Provider: Sheila Ponce R.N.)1417 (APR Hold - Provider: Transfer Provider, Automatic - Reason: Patient not available)1657 (MAR Unhold - Provider: Transfer Provider, Automatic) 0947 (Given - Provider: Elidia Orozco R.N.) 75 mg, oral, Daily, First dose on [...] orders insulin glargine injection 10 Units (COMPLETED) 014 (Given - Provider: Julienne Hutchins R.N.) 10 Units, subcutaneous, Once, On Thu01/12/22 at 2230, For 1 dos e insulin glargine injection 11 Units 2111 (Given - Provider: David Lacy R.N.) 11 [...] 0709 (Given - Provider: Julienne Hutchins R.N.)1417 (APR Hold - Provider: Transfer Provider, Automatic - Reason: Patient not available)1657 (APR Unhold - Provider: Transfer Provider, Automatic) 0624 (Given - Provider: Simona Russo) 75 mcg, oral, Daily before breakfast, Fi rst dose (after last modification) on Thu01/13/22 at 0700 melatonin tablet 3 mg 3 mg, oral, Daily at bedtime, First dose on Thu01/14/22 at 2100 metoprolol tablet 12.5 mg (LOPRESSOR) 2333 (Given - Pr ovider: Radha Smith RJairoNJairo) 0934 (Given - Provider: Sheila Ponce R.N.)141 (APR Hold - Provider: Transfer Provider, Automatic - Reason: Patient not available)165 (APR Unhold - Provider: Transfer Provider, Automatic)2110 (Given - Provider: David Lacy R.N.) 0947 (Given - Provider: Elidia frank RSusan) 12.5 mg, oral, 2 times daily, First dose on Thu01/12/22 at 2300 NaCl 0.9 % bolus 250 mL 1330 (Du e) 250 mL, intravenous, at 1,000 mL/hr, Adm inister over 15 Minutes, Once, On Thu01/14/22 at 1330, For 1 dose, Postprocedure (CV) pantoprazole DR tablet 40 mg (PROTONIX) 0710 (Given - Provider: Julienne Hutchins RSusan)141 (APR Hold - Provider: Transfer Provider, Automatic - Reason: Patient not available)1656 (APR Unhold - Provider: Transfer Provider, Automatic) 0624 (Given - Provider: David Lacy R Susan) 40 mg, oral, Daily before breakfast, Fir st dose on Thu01/13/22 at 0700, Swallow whole. Do NOT crush, chew, or split tablet. sodium chloride 0.9 % injection 3 mL 093 9 (Not Given - Provider: Sheila Ponce R.N. - Reason: Other - Comment: IV infusing)141 (APR Hold - Provider: Transfer Provider, Automatic - Reason: Patient not available)1656 (APR Unhold - Provider: Transfer Provider, Automatic) 0947 (Given - Provider: Elidia Orozco RSusan) 3 mL, intravenous, Every 12 hours schedu led, First dose on Thu01/13/22 at 0900, Peripheral Intravenous Catheter and Rapid Infusion Catheter, when no infusion to maintain patency 2111 (Given - Provider: Simona Russo) Continuous Medication Order 01/12/2022 01/13/2022 01/14/2022 heparin (porcine) 100 Units/mL in NaCl 0.45% 250 mL in fusion (CANCELED) 2228 (New Bag - Provider: Radha Smith R.N.) 0200 (Rate/Dose Verify - Provider: Julienne Hutchins R.N.)0300 (Rate/Dose Verify - Provider: Julienne Hutchins R.N.)0630 (Rate/Dose Change - Provider: Julienne Hutchins R.N.)1132 (Rate/Dose Change - Provider: Sheila Ponce R.N.) 0-40 Units/kg/hr ? 80.2 kg (0-32.08 mL/hr), intravenous, Continuous, Starting on 01/12/22 at 2215, 25,000 Units in 250 mL, Intensity type: Moderate, Starting Dose (units/kg/hr): 12, Anti-Xa < 0. 1513 (Stopped - Provid er: Traci Alanis R.N.) 1: Adjust Dose (Units/kg/hr) by: 4, Anti [...] solution (OMNIPAQUE) (CANCELED) 1617 (Given - Provider: Arabella Bonilla.B.S.) As needed, Starting on Thu01/13/22 at 1617, [...] use only) (CANCELED) 1606 (Given - Provider: Arabella Bonilla.B.S.) As needed, Starting on Thu01/13/22 at 1606, [...] 0.9 % injection 10 mL 14 17 ([facility] Hold - Provider: Transfer Provider, Automatic - Reason: Patient not available)1657 ([facility] Unhold - Provider: Transfer Provider, Automatic) 10 mL, intravenous, As needed, line care , Starting on Thu01/12/22 at 2136, Peripheral Intravenous Catheter and Rapid Infusion Catheter, prior to blood sampling, post blood transfusion or post blood sampling sodium chloride 0.9 % injection 3 mL 141 7 ([facility] Hold - Provider: Transfer Provider, Automatic - Reason: Patient not available)1657 ([facility] Unhold - Provider: Transfer Provider, Automatic) 3 [...] documented as of this encounter Care Teams Weather Algorithm Scientist Relationship Specialty Start Date End Date Elsewhere, Pcp PCP - General Internal Medicine 01/12/22 documented as of this encounter
--- OUTSIDE RECORDS SUMMARY | 2022-01-21 13:47 | XMS_ITS | Encounter Summary ---
:1945 Author Organization [facility] Address [address] [place] [address] Care Team Providers Name Role Phone Unavailable Primary Care Provider Unavailable Reason for Visit Reason Comments Eye Problem Encounter Details Date Type Department Care Team Description 06/24/2021 Clinical Communication Department of Estelle Martinez Problem Ophthalmology in Eric Abrams R.N. [place] [address] [phone] Social History Tobacco Use Types Packs/Day Years [...] has been evaluated in the ED in [place] whereshe had a head CT and labs which came back negative. She stated that she has balance issues but saysthat it is NOT vertigo as she has had that before. She was instructed by her PCP to have her eyes checked. She has been seen in our OPH dept before by both Dr. Noova and Dr. Hadley. She denies flashes but did note a new floater and mentioned that she does have DM II. Her last eye exam was done in [facility]. Intervention Reaching out to OPH [...] following individuals participated in today???s interaction: patient Beauty Counselor used: no Additional concerns addressed: none documented in this encounter Plan of Treatment Upcoming Encounters Date Type Specialty Care Team Description 01/22/2022 Office Visit Cardiovascular Disease Maritza Currie M.D. [address] [place], [place] [phone] (Wo rk) documented as of this encounter Visit Diagnoses Not on filedocumented in this encounter Additional Health Concerns Assessment Noted Time PHQ-9 Depression Total Score: 7 06/21/2014 9:20 AM CDT documented as of this encounter
--- OUTSIDE RECORDS SUMMARY | 2022-01-21 13:47 | XMS_ITS | Encounter Summary ---
:1945 Author Organization [facility] Address [address] [place] [address] Care Team Providers Name Role Phone Unavailable Primary Care Provider Unavailable Reason for Visit Reason Comments Follow-up Appointment Request (Routine) - Closed Specialty Diagnoses / Procedures Referred By Contact Refer red To Contact Referral ID Status Reason Start Date Expiration Date Visits Requ ested Visits Authorized [id number] Closed 05/07/2021 05/07/2022 1 Encounter Details Date Type Department Care Team Description 06/26/2021 Office Visit Department of Vignesh Currie ent Status Post (Primary Dx); Cardiovascular Diseases B, M.D. Imbalance Non Orthopedic; in [place], [address] [place] [address] Diabetes Mellitus Type 2 (HCC); [place], [place] Hyperlipidemia Mixed [address] [place] [address] [address] [address] [place], [place] [phone] (Work) [phone] Social History Tobacco Use Types Packs/Day Years [...] Marcial is a pleasant 76-year-old female from [place], [place]. She is known to me from [...] a while, but ultimately presented to the [facility] [facility] for evaluation. She underwent a [...] the left hand. She follows with a export freight specialist in the [facility]. She has been diagnosed with rheumatoid arthritis and receivesinfusion therapy with abatacept. My biggest concern today is difficulty reconciling her medications. Her cares list between [facility], [facility], as well as export freight specialist in the [facility]. She had her medications written down on [...] Vignesh Currie M.D. CT CT Job ID: [id number] documented in this encounter Plan of Treatment Upcoming Encounters Date Type Specialty Care Team Description 01/22/2022 Office Visit Cardiovascular Disease Maritza Currie M.D. [address] [place] [phone] (Wo rk) documented as of this encounter Visit Diagnoses Diagnosis Coronary Stent Status Post - Primary Imbalance Non Orthopedic Diabetes Mellitus Type 2 (HCC) Hyperlipidemia Mixed documented in this encounter Additional Health Concerns Assessment Noted Time PHQ-9 Depression Total Score: 7 06/21/2014 9:20 AM CDT documented as of this encounter
--- OUTSIDE RECORDS SUMMARY | 2022-01-21 13:47 | XMS_ITS | Encounter Summary ---
:1945 Author Organization [facility] Address [address] [place] [address] Care Team Providers Name Role Phone Unavailable Primary Care Provider Unavailable Reason for Visit Physical Therapy (Routine) - Authorized Specialty Diagnoses / Procedures Referred By Contact Refer red To Contact Diagnoses Imbalance Non Orthopedic Adriane Patel, C.N.P. [facility] Procedures PT Ongoing treatment [address] [place] [address] Referral ID Status Reason Start Date Expiration Date Visits V isits Requested Authorized [id number] Authorized 07/23/2021 07/23/2022 99 99 Encounter Details Date Type Department Care Team Description 07/26/2021 Clinical Support Department of Ai Patel, C.N.P. [address] [place] [address] Imbalance Non Rehabilitation Luciana Ferguson, P.T. [address] [place] [phone] Orthopedic Services in [address] [phone] Social History Tobacco Use Types Packs/Day Years [...] Maritza Currie M.D. [address] [place] [phone] (Wo rk) documented as of this encounter Visit Diagnoses Diagnosis Imbalance Non Orthopedic documented in this encounter Additional Health Concerns Assessment Noted Time PHQ-9 Depression Total Score: 7 06/21/2014 9:20 AM CDT documented as of this encounter
--- OUTSIDE RECORDS SUMMARY | 2022-01-21 13:48 | XMS_ITS | Encounter Summary ---
:1945 Author Organization [facility] Address [address] [place] [address] Care Team Providers Name Role Phone Unavailable Primary Care Provider Unavailable Encounter Details Date Type Department Care Team Description 10/02/2020 Orders Only [facility] PCP [facility] Lana Terry M.D. [address] [place], [place] [phone] (Wo rk) Social History [...] Cardiovascular Disease Maritza Currie M.D. [address] [place], [place] [phone] (Wo rk) documented as of this encounter Visit Diagnoses Not on filedocumented in this encounter Additional Health Concerns Assessment Noted Time PHQ-9 Depression Total Score: 7 06/21/2014 9:20 AM CDT documented as of this encounter
--- OUTSIDE RECORDS SUMMARY | 2022-01-21 13:48 | XMS_ITS | Encounter Summary ---
:1945 Author Organization [facility] Address [address] [place] [address] Care Team Providers Name Role Phone Unavailable Primary Care Provider Unavailable Encounter Details Date Type Department Care Team Description 01/07/2019 Clinical Communication Department of Josi Pittman, Ophthalmology in [address] [phone] Social History Tobacco Use Types Packs/Day Years [...] eyes quit watering or tearing. Intervention This screen writer educated patient on dry eye syndrome, especially during the winter months when we have alot of dry air in our homes and cars. Patient may need to faithfully use lubricating tears during the winter for this reason. This screen writer directed patient to restart the artificial tears, safe to use 4 times daily. To continue with the lid soaks and lid scrubs. This screen writer explained that it cantake at least a week to notice less blurry vision after faithfully using the artificial tears, faithfully and daily. Also, this screen writer suggested to add humidification to patient's home. Has patient called or presented with the same symptom previously yes - 12/17/18 Is patient experiencing other symptoms: no The following references were used: nursing clinical judgement and other telephone triage [facility] pages [phone] Education provided: patient/caller able to teach back Disposition/Recommendation: self-care as stated above appropriate at this time, patient encouraged to call back with questions Caller agreeable to plan of care: yes The following individuals participated in today???s interaction: patient Power Plant Operator used: no Additional concerns addressed: none COMBER documented in this encounter Plan of Treatment Upcoming Encounters Date Type Specialty Care Team Description 01/22/2022 Office Visit Cardiovascular Disease Maritza Currie M.D. [address] [place] [phone] (Wo rk) documented as of this encounter Visit Diagnoses Not on filedocumented in this encounter Additional Health Concerns Assessment Noted Time PHQ-9 Depression Total Score: 7 06/21/2014 9:20 AM CDT documented as of this encounter
--- OUTSIDE RECORDS SUMMARY | 2022-01-21 13:48 | XMS_ITS | Encounter Summary ---
:1945 Author Organization [facility] Address [address] [place] [address] Care Team Providers Name Role Phone Unavailable Primary Care Provider Unavailable Reason for Visit Reason Comments COVID Inquiry Encounter Details Date Type Department Care Team Description 07/26/2020 Clinical Communication Department of Vignesh Currie OVID [place] Cardiovascular Medicine Lee Lance in [facility] [address] [facility] [address] [place] [phone] Social History Tobacco Use Types Packs/Day Years [...] appointment being requested?: Less than 14 days [place] In the past 14 days are any [...] sending patient for testing in [facility], route encounter to the correct testing pool. documented in this encounter Plan of Treatment Upcoming Encounters Date Type Specialty Care Team Description 01/22/2022 Office Visit Cardiovascular Disease Maritza Currie M.D. [address] [place] [phone] (Wo rk) documented as of this encounter Visit Diagnoses Not on filedocumented in this encounter Additional Health Concerns Assessment Noted Time PHQ-9 Depression Total Score: 7 06/21/2014 9:20 AM CDT documented as of this encounter
--- OUTSIDE RECORDS SUMMARY | 2022-01-21 13:48 | XMS_ITS | Encounter Summary ---
:1945 Author Organization [facility] Address [address] [place] [address] Care Team Providers Name Role Phone Unavailable Primary Care Provider Unavailable Encounter Details Date Type Department Care Team Description 07/27/2018 Hospital Encounter Department of Jenny Hayes, Olu lipidemia; Radiology in [place] Arthritis Rheumatoid (HCC); [place], [place] [address] Coronary Artery Disease [place]; [address] [place] [address] Diabetes Mellitus Type 2 ([place]) [place] [phone] Social History Tobacco Use Types Packs/Day [...] anxiety. BASAGLAR KWIKPEN U-100 Inject 22 Units 0 07/18/19 19 INSULIN 100 unit/mL (3 mL) under the skin injection every morning. blood sugar diagnostic 0 06/30/2018 (Accu-Chek Alison Plus test strp) strips leflunomide (ARAVA) 20 mg Take 20 mg by mouth 0 tablet daily. levothyroxine (SYNTHROID, Take 25 mcg by 0 2018 LEVOTHROID) 75 mcg tablet mouth daily. ASPIRIN ORAL Take 81 mg by mouth 0 03/02/2012 daily. Take with food for heart health. clindamycin (CLINDAGEL) 1 0 07/15/2018 01/13/2022 % gel ergocalciferol (DRISDOL) Take 50,000 Units 0 01/13/2022 50,000 Unit capsule by mouth once a week. ferrous gluconate (FERGON) Take 38 mg by mouth 0 01/13/2022 324 mg (38 mg iron) tablet daily. furosemide (LASIX) 20 mg 0 07/20/2018 07/25/2020 tablet glipiZIDE (for_GLUCOTROL) Take 10 mg by mouth 0 0 07/03/2016 01/13/2022 5 mg tablet every morning before breakfast. lisinopril Take 2.5 mg by 0 06/26/2021 [...] Cardiovascular Disease Maritza Currie M.D. [address] [place] [phone] (Wo rk) documented as of this encounter Procedures Procedure Name Priority Date/Time Associated Diagnosis Comme nts ECG Routine 07/27/2018 10:08 AM Hyperlipidem ia Results for this CDT Arthritis Rheumatoid procedu re are in the ([facility]) results section. Coronary Artery Disease [place] Diabetes Mellitus Type 2 ([facility]) documented in this encounter Results ECG 12 Lead (07/27/2018 10:08 AM CDT) P athologist Signature Ventricular Rate 83 BPM MUSE ECG/Min [place] Interval 144 ms MUSE QRSD Interval 84 ms MUSE QT Interval 362 ms MUSE QTC Interval 425 ms MUSE P [place] 62 degrees MUSE R [place] -20 degrees MUSE T Wave [place] 79 degrees MUSE Specimen Anatomical Collection Method [...] Hyperlipidemia Arthritis Rheumatoid (HCC) Coronary Artery Disease [place] Diabetes Mellitus Type 2 (HCC) documented in this encounter Additional Health Concerns Assessment Noted Time PHQ-9 Depression Total Score: 7 06/21/2014 9:20 AM CDT documented as of this encounter
--- OUTSIDE RECORDS SUMMARY | 2022-01-21 13:48 | XMS_ITS | Encounter Summary ---
:1945 Author Organization [facility] Address [address] [place] [address] Care Team Providers Name Role Phone Unavailable Primary Care Provider Unavailable Encounter Details Date Type Department Care Team Description 07/27/2018 Hospital Encounter Department of Vignesh Currie Artery Disease [place]; Laboratory Medicine Tamia Lance. Diabetes Mellitus Type 2 (HCC); in [place] [phone] [facility] [phone] [place], [place] (Work) [phone] Social History Tobacco Use [...] Cardiovascular Disease Maritza Currie M.D. [address] [place], [place] [phone] (Wo rk) documented as of this encounter Procedures Procedure Name Priority Date/Time Associated Diagnosis Comme nts LIPID PANEL, S Routine 07/27/2018 10:23 AM Coronary Artery Res ults for this CDT Disease [place] procedure are in the Diabetes [...] Phon e Number [facility]- [address] [place] [phone] [facility] documented in this encounter Visit Diagnoses Diagnosis Coronary Artery Disease [place] Diabetes Mellitus Type 2 (HCC) Vertigo documented in this encounter Additional Health Concerns Assessment Noted Time PHQ-9 Depression Total Score: 7 06/21/2014 9:20 AM CDT documented as of this encounter
--- OUTSIDE RECORDS SUMMARY | 2022-01-21 13:48 | XMS_ITS | Encounter Summary ---
:1945 Author Organization [facility] Address [address] [place] [address] Care Team Providers Name Role Phone Unavailable Primary Care Provider Unavailable Reason for Referral Specialty Diagnoses / Procedures Referred By Contact Refer red To Contact Jasmeet Mccormick M.D. [facility] Region [address] [phone] Referral ID Status Reason Start Date Expiration Date Visits Requ ested Visits Authorized K RATING Encounter Details Date Type Department Care Team Description 04/18/2020 Orders Only [facility] PCP [facility] ABEBAT Sa pamela Elkins M.D. [address] [place], [place] [phone] (Wo karthik) Social History Tobacco Use Types Packs/Day Years [...] Visit Cardiovascular Disease Maritza Currie M.D. [address] [place], [place] [phone] (Wo rk) Scheduled Referrals Name [...]
--- OUTSIDE RECORDS SUMMARY | 2022-01-21 13:48 | XMS_ITS | Encounter Summary ---
:1945 Author Organization [facility] Address [address] [place] [address] Care Team Providers Name Role Phone Unavailable Primary Care Provider Unavailable Reason for Referral Outpatient (Routine) - Closed Specialty Diagnoses / Procedures Referred By Contact Refer red To Contact Cardiovascular Disease Vignesh Currie [facility] [place] [facility] M.D. [address] [place] [phone] Referral ID Status Reason Start Date Expiration Date Visits Requ ested Visits Authorized [id number] Closed 11/03/2019 11/02/2020 1 1 Reason for Visit Reason Comments Follow-up Outpatient (Routine) - Closed Specialty Diagnoses / Procedures Referred By Contact Refer red To Contact Cardiovascular Disease Vignesh Currie [facility] [place] [facility] M.D. [address] [place] [phone] Referral ID Status Reason Start Date Expiration Date Visits Requ ested Visits Authorized [id number] Closed 03/17/2019 03/16/2020 1 1 Encounter Details Date Type Department Care Team Description 11/03/2019 Office Visit Department of Vignesh Currie Diabetes Me llitus Type 2 (HCC) (Primary Dx); Cardiovascular Diseases Lee Lance Ischemic Heart Chronic Disease in [id number] [place] [address] [address] [address] [place], [place] [phone] (Work) [phone] Social History Tobacco Use Types Packs/Day Years [...] Marcial is a pleasant 74-year-old female from [place], [place]. She is known to me from [...] recently restarted. 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 Vazquez solely through the [facility]. She has additional comorbidities [...] Vignesh Currie M.D. CT CT Job ID: [id number] documented in this encounter Plan of Treatment Upcoming Encounters Date Type Specialty Care Team Description 01/22/2022 Office Visit Cardiovascular Disease Maritza Currie M.D. [address] [place], [place] [phone] (Wo rk) Scheduled Referrals Name Type Priority [...] Organization Address City/State/ZIP Code Phon e Number [facility]- [address] [place] [address] [place] [address] System in [place] [address] [address] documented in this encounter Visit Diagnoses Diagnosis Diabetes Mellitus Type 2 (HCC) - Primary Ischemic Heart Chronic Disease documented in this encounter Additional Health Concerns Assessment Noted Time PHQ-9 Depression Total Score: 7 06/21/2014 9:20 AM CDT documented as of this encounter
--- OUTSIDE RECORDS SUMMARY | 2022-01-21 13:48 | XMS_ITS | Encounter Summary ---
:1945 [address] [facility] Address [address] [place] [address] Care Team Providers Name Role Phone Unavailable Primary Care Provider Unavailable Encounter Details Date Type Department Care Team Description 12/15/2019 Hospital Encounter Department of Vignesh Currie miky Mellitus Type 2 (HCC); Laboratory Medicine Lee Lance Ischemic Heart Chronic Disease in [place] [address] [address] [phone] [place], [place] (Work) [phone] Social History Tobacco Use [...] D3 600 mg-10 mcg (400 unit) tablet,chewable leflunomide (ARAVA) 20 mg Take 20 mg by mouth 0 tablet daily. levothyroxine (SYNTHROID, Take 25 mcg by 0 2018 LEVOTHROID) 75 mcg tablet mouth daily. abatacept in NaCl 0.9% Infuse into a 0 01/13/2022 IVPB venous catheter. ASPIRIN ORAL Take 81 mg by mouth 0 03/02/2012 daily. Take with food for heart health. clindamycin (CLINDAGEL) 1 0 07/15/2018 01/13/2022 % gel dapagliflozin (FARXIGA) 5 Take 1 tablet (5 mg 30 tablet 11 1 01/13/2022 mg tablet total) by mouth daily. ergocalciferol (DRISDOL) Take 50,000 Units 0 01/13/2022 [...] a day. Taking only 1 tablet daily lmetdeml-edslyurye-fdtayqt 0 9 06/26/2021 hasone (MAXITROL) 3.5mg/mL-10,000 unit/mL-0.1 [...] Team Description 01/22/2022 Office Visit Cardiovascular Disease Currie, D arrell B, M.D. [address] [place], [place] [phone] (Wo rk) documented as [...] City/State/ZIP Code Phon e Number [facility]- [address] [place] [address] [place] [address] [place] [address] System [address] documented in this encounter Visit Diagnoses Diagnosis Diabetes Mellitus Type 2 (HCC) Ischemic Heart Chronic Disease documented in this encounter Additional Health Concerns Assessment Noted Time PHQ-9 Depression Total Score: 7 06/21/2014 9:20 AM CDT documented as of this encounter
--- OUTSIDE RECORDS SUMMARY | 2022-01-21 13:48 | XMS_ITS | Encounter Summary ---
:1945 Author Organization [facility] Address [address] [place] [address] Care Team Providers Name Role Phone Unavailable Primary Care Provider Unavailable Reason for Referral MRI/CAT/PET Scan (Routine) - Closed Specialty Diagnoses / Procedures Referred By Contact Refer red To Contact Radiology Diagnoses Coronary Stent Status Post Pain Chest Atypical Vignesh Currie M.D. [facility] Procedures CT Cardiac Angiogram with Coronary Arteries with IV Contrast CT Cardiac Angiogram with IV Contrast [address] [place] [phone] Referral ID Status Reason Start Date Expiration Date Visits Requ ested Visits Authorized [id number] Closed 07/25/2020 07/25/2021 1 1 Reason for Visit MRI/CAT/PET Scan (Routine) - Closed Specialty Diagnoses / Procedures Referred By Contact Refer red To Contact Radiology Diagnoses Coronary Stent Status Post Pain Chest Atypical Vignesh Currie M.D. [facility] Procedures CT Cardiac Angiogram with Coronary Arteries with IV Contrast CT Cardiac Angiogram with IV Contrast [address] [place] [address] Referral ID Status Reason Start Date Expiration Date Visits Requ ested Visits Authorized [id number] Closed 07/25/2020 07/25/2021 1 1 Encounter Details Date Type Department Care Team Description 08/01/2020 Hospital Encounter Department of Vignesh Currie Stent Status Post; Radiology, Son Lance M.D. Pain Chest Atypical Building, in [address] [facility] [address] [place] [address] [place], [place] (Work) [address] [phone] Social History Tobacco Use Types Packs/Day Years [...] mg by mouth 0 11/13/2021 tablet daily. abatacept in NaCl 0.9% Infuse [...] a day. Taking only 1 tablet daily yezpiudt-hrordssdu-eibjzga 0 9 06/26/2021 hasone (MAXITROL) 3.5mg/mL-10,000 unit/mL-0.1 [...] Office Visit Cardiovascular Disease Maritza Currie M.D. [address] [place] [phone] (Wo rk) documented as of this [...]
--- OUTSIDE RECORDS SUMMARY | 2022-01-21 13:48 | XMS_ITS | Encounter Summary ---
:1945 Author Organization [facility] Address [address] [place] [address] Care Team Providers Name Role Phone Unavailable Primary Care Provider Unavailable Encounter Details Date Type Department Care Team Description 07/25/2020 Hospital Encounter Department of Vignesh Currie [facility] Heart Chronic Disease; Laboratory Medicine Tamia Lance. Diabetes Mellitus Type 2 (HCC) in [place] [phone] [facility] [phone] [place], [place] (Work) [phone] Social History Tobacco Use [...] into a 0 01/13/2022 IVPB venous catheter. amLODIPine (NORVASC) 5 mg Take 5 mg [...] a day. Taking only 1 tablet daily ftpkicbo-giabjklpz-yvefxre 0 9 06/26/2021 hasone (MAXITROL) 3.5mg/mL-10,000 unit/mL-0.1 [...] Disease Maritza Currie M.D. [address] [place], [place] [phone] (Wo rk) documented [...] City/State/ZIP Code Phon e Number [facility]- [address] [place] [address] [facility] [place] [address] (ABNORMAL) Basic Metabolic Panel (07/25/2020 2:13 [...] eGFR-Black/Afri 39 (L) >=60 07/25/2020 CN[facility] [place] mL/min/BSA 2:43 PM CDT Comment: ----ADDITIONAL INFORMATION---- Estimated GFR calculated using the 2009 CKD_EPI creatinine equation. eGFR Non-Black/ 34 (L) >=60 mL/min/BSA 07/25/2020 2:43 PM CDT CNFL [place] Comment: ----ADDITIONAL INFORMATION---- Estimated GFR calculated using [...] City/State/ZIP Code Phon e Number [facility]- [address] [place] [address] [place] [address] [facility] [place] [address] System [address] (ABNORMAL) CBC without Differential (07/25/2020 2:13 PM CDT) [facility] gist Method Time Signature Hemoglobin 11.0 [...] City/State/ZIP Code Phon e Number [facility]- [address] [place] [address] [facility] [place] [address] System [address] documented in this encounter Visit Diagnoses Diagnosis Ischemic Heart Chronic Disease Diabetes Mellitus Type 2 (HCC) documented in this encounter Additional Health Concerns Assessment Noted Time PHQ-9 Depression Total Score: 7 06/21/2014 9:20 AM CDT documented as of this encounter
--- OUTSIDE RECORDS SUMMARY | 2022-01-21 13:48 | XMS_ITS | Encounter Summary ---
:1945 Author Organization [facility] Address [address] [place] [address] Care Team Providers Name Role Phone Unavailable Primary Care Provider Unavailable Reason for Visit Reason Comments Follow-up Outpatient (Routine) - Closed Specialty Diagnoses / Procedures Referred By Contact Refer red To Contact Cardiovascular Disease Vignesh Currie [facility] [place] [facility] M.D. [address] [place] [phone] Referral ID Status Reason Start Date Expiration Date Visits Requ ested Visits Authorized [id number] Closed 11/03/2019 11/02/2020 1 1 Encounter Details Date Type Department Care Team Description 12/15/2019 Office Visit Department of Vignesh Currie Diabetes Me llitus Type 2 (HCC) (Primary Dx); Cardiovascular Diseases Lee Lance Coronary Stent Status Post; in [place], [address] [place] [address] [address] [place] [address] [address] [place], [place] [phone] (Work) [phone] Social History Tobacco Use Types Packs/Day Years [...] Marcial is a pleasant 74-year-old female from [place], [place]. She is known to me from [...] October. 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, but had since transitioned to working [...] postprandial glucose levels. Forty minutes in consultation. Vignehs Currie M.D. CT CT Job ID: [id number] documented in this encounter Plan of Treatment Upcoming Encounters Date Type Specialty Care Team Description 01/22/2022 Office Visit Cardiovascular Disease Maritza Currie M.D. [address] [place] [phone] (Wo rk) documented as of this encounter Visit Diagnoses Diagnosis Diabetes Mellitus Type 2 (HCC) - Primary Coronary Stent Status Post Hyperlipidemia Mixed documented in this encounter Additional Health Concerns Assessment Noted Time PHQ-9 Depression Total Score: 7 06/21/2014 9:20 AM CDT documented as of this encounter
--- OUTSIDE RECORDS SUMMARY | 2022-01-21 13:48 | XMS_ITS | Encounter Summary ---
:1945 Author Organization [facility] Address [address] [place] [address] Care Team Providers Name Role Phone Unavailable Primary Care Provider Unavailable Encounter Details Date Type Department Care Team Description 06/29/2019 Clinical Communication Department of Josi Pittman, Ophthalmology in [address] [phone] Social History Tobacco Use Types Packs/Day Years [...] injectable medication. She is followed by an lost charge card clerk. Her last a1c was 8.5 on 06/01/19. [...] were used: nursing clinical judgement and [email or web address] Education provided: patient/caller able to teach back Disposition/Recommendation: self-care as stated above appropriate at this time, patient encouraged to call back with questions Caller agreeable to plan of care: yes The following individuals participated in today???s interaction: patient Glass Driller used: no Additional concerns addressed: none documented in this encounter Plan of Treatment Upcoming Encounters Date Type Specialty Care Team Description 01/22/2022 Office Visit Cardiovascular Disease Maritza Currie M.D. [address] [place] [phone] (Wo rk) documented as of this encounter Visit Diagnoses Not on filedocumented in this encounter Additional Health Concerns Assessment Noted Time PHQ-9 Depression Total Score: 7 06/21/2014 9:20 AM CDT documented as of this encounter
--- OUTSIDE RECORDS SUMMARY | 2022-01-21 13:48 | XMS_ITS | Encounter Summary ---
:1945 Author Organization [facility] Address [address] [place] [address] Care Team Providers Name Role Phone Unavailable Primary Care Provider Unavailable Reason for Referral MRI/CAT/PET Scan (Routine) - Closed Specialty Diagnoses / Procedures Referred By Contact Refer red To Contact Radiology Diagnoses Coronary Stent Status Post Pain Chest Atypical Vignesh Currie M.D. [facility] Procedures CT Cardiac Angiogram with Coronary Arteries with IV Contrast CT Cardiac Angiogram with IV Contrast [address] [place] [address] Referral ID Status Reason Start Date Expiration Date Visits Requ ested Visits Authorized [id number] Closed 07/25/2020 07/25/2021 1 1 Reason for Visit Reason Comments Shortness of Breath Appointment Request (Routine) - Closed Specialty Diagnoses / Procedures Referred By Contact Refer red To Contact Cardiovascular Disease Referral ID Status Reason Start Date Expiration Date Visits Requ ested Visits Authorized [id number] Closed 07/18/2020 07/18/2021 1 1 Encounter Details Date Type Department Care Team Description 07/25/2020 Office Visit Department of Vignesh Currie Pain Chest Atypical (Primary Dx); Cardiovascular Diseases Lee Lance Anemia; in [address] Coronary Stent Status Post [address] [address] [place], [place] [phone] (Work) [phone] Social History Tobacco Use Types Packs/Day Years [...] Ceja is a pleasant 75-year-old female from [place], [place]. She is known to me from [...] intolerance for example when walking up the [place] or doing other chores around the house. [...] 2018. I did compare it with recent [facility] blood work. This is a bit higher [...] on reviewing the outside blood work at [facility]. I think it would be reasonable to repeat a basic metabolic panel in a couple of weeks. I also ordered a ferritin to be added to her stored specimen. She has a history of chronic anemia, but I do not see that she has had prior iron studies. Vignesh Currie M.D. CT CT Job ID: [id number] documented in this encounter Plan of Treatment Upcoming Encounters Date Type Specialty Care Team Description 01/22/2022 Office Visit Cardiovascular Disease Maritza Currie M.D. [address] [place], [place] [phone] (Wo rk) Scheduled Orders [...]
--- OUTSIDE RECORDS SUMMARY | 2022-01-21 13:48 | XMS_ITS | Encounter Summary ---
:1945 Author Organization [facility] Address [address] [place] [address] Care Team Providers Name Role Phone Unavailable Primary Care Provider Unavailable Reason for Referral Outpatient (Routine) - Closed Specialty Diagnoses / Procedures Referred By Contact Refer red To Contact Cardiovascular Disease Vignesh Currie [facility] [place] [facility] M.[facility]. [address] [place] [phone] Referral ID Status Reason Start Date Expiration Date Visits Requ ested Visits Authorized [id number] Closed 03/17/2019 03/16/2020 1 1 ING ASSOCIATE Reason for Visit Reason Comments Follow-up Outpatient (Routine) - Closed Specialty Diagnoses / Procedures Referred By Contact Refer red To Contact Cardiovascular Disease Vignesh Currie [facility] [place] [facility] M.[facility]. [address] [place] [phone] Referral ID Status Reason Start Date Expiration Date Visits Requ ested Visits Authorized [id number] Closed 07/29/2018 07/29/2019 1 1 Encounter Details Date Type Department Care Team Description 03/17/2019 Office Visit Department of Vignesh Currie Diabetes Me llitus Type 2 (HCC) (Primary Dx); Cardiovascular Diseases Lee Lance Hyperlipidemia Mixed in [place] [address] [address] [place], [place] [phone] (Work) [phone] Social History Tobacco Use Types Packs/Day Years [...] Comments Blood Pressure 120/70 03/17/2019 8:59 AM LEASING ASSOCIATE Pulse 75 03/17/2019 8:59 AM apical regula r LEASING ASSOCIATE Temperature - - Respiratory Rate 16 03/17/2019 8:59 AM LEASING ASSOCIATE Oxygen Saturation - - Inhaled Oxygen Concentration - - Weight 82.7 kg (182 lb 5.1 03/17/2019 8:59 AM oz) LEASING ASSOCIATE Height 157 cm (5' 1.81) 03/17/2019 8:59 AM LEASING ASSOCIATE Body Mass Index 33.55 03/17/2019 8:59 AM LEASING ASSOCIATE documented in this encounter Progress Notes Vignesh Currie M.D. - 03/17/2019 8:38 AM CST SUBJECTIVE CHIEF COMPLAINT/REASON FOR VISIT Mixed hyperlipidemia, history of coronary artery disease. HISTORY OF PRESENT ILLNESS Marcial is a pleasant 73-year-old female from [place], [place]. She is known to me from [...] the clinic visit notes with her recent confectionery laboratory manager. Unfortunately, her hemoglobin A1c has risen further [...] Thus, she has been on high dose xted-qia-exmxzrz fish oil to achieve an EPA/DHA dose of 4 g.Hopefully once Vascepa achieves guideline recommendation, we can make another attempt with her insurance company. Her hemoglobin A1c unfortunately has risen further to 8.8%. This is based on her outpatient clinic visit note in [facility]. She was advised to consider Ozempic but she is not interested inthis due to a study she read involving rats and increased tumors. She was previously on metformin, but this was discontinued due to borderline kidney function. I do not think that her mild renal insufficiency precludes the use of metformin and I have suggested she discuss this further with her confectionery laboratory manager. I recognize that metformin by itself would not dramatically alter her hemoglobin A1c levels, nonetheless, prior RCT data has shown survival benefit on metformin. Twenty-five minutes in consultation with greater than 50% in direct ttox-mj-mrhi counseling. Vignesh Currie M.D. CT CT Job ID: [id number] ING ASSOCIATE documented in this encounter Plan of Treatment Upcoming Encounters Date Type Specialty Care Team Description 01/22/2022 Office Visit Cardiovascular Disease Maritza Currie M.D. [address] [place] [phone] (Wo rk) Scheduled Referrals Name Type Priority Associated Order Schedule Diagnoses Cardiovascular Disease Outpatient Referral Routine Expected: office visit (clinic) 2019 (Approximate), Expires: 03/17/2022 documented as of this encounter Procedures Procedure Name Priority Date/Time Associated Diagnosis Comme nts LIPID PANEL, S Routine 03/17/2019 9:31 AM Diabetes Mellitus Re sults for this LEASING ASSOCIATE Type 2 (HCC) procedure are in the Hyperlipidemia Mixed results section. documented in this encounter Results (ABNORMAL) Lipid Panel (03/17/2019 9:31 AM LEASING ASSOCIATE) P athologist Signature Cholesterol, 160 mg/dL 03/17/2019 CNFL Total 9:51 AM LEASING ASSOCIATE Comment: ----REFERENCE VALUE---- Desirable: < 200 Borderline high: 200 - 239 High: > or = 240 Triglycerides 195 (H) mg/dL 03/17/2019 9:51 AM LEASING ASSOCIATE CNF L Comment: ----REFERENCE VALUE---- Normal: <150 Borderline high: 150-199 High: 200-499 Very high: > or =500 Cholesterol, HDL 49 (L) >=50 mg/dL 03/17/2019 9:51 AM LEASING ASSOCIATE CNFL Calculated LDL 72 mg/dL 03/17/2019 9:51 AM LEASING ASSOCIATE CN FL Comment: ----REFERENCE VALUE---- Desirable: <100 Above Desirable: 100-129 Borderline high: 130-159 High: 160-189 Very high: > or =190 Cholesterol, Non-HDL, Calculated 111 mg/dL 020 9:51 AM LEASING ASSOCIATE CNFL Comment: ----REFERENCE VALUE---- Desirable: <130 Above Desirable: 130-159 Borderline high: 160-189 High: 190-219 Very high: > or =220 Specimen Anatomical Collection Method Collection Time Receive d Time (Source) Location / / Volume Laterality Blood (Blood, 03/17/2019 9:31 AM 03/17/19 20 9:31 Venous) LEASING ASSOCIATE AM LEASING ASSOCIATE Vignesh Currie M.D. LAB BLOOD ADD-ON Performing Organization Address City/State/[facility] Code Phon e Number [address] [place] [address] [address] documented in this encounter Visit Diagnoses Diagnosis Diabetes Mellitus Type 2 (HCC) - Primary Hyperlipidemia Mixed documented in this encounter Additional Health Concerns Assessment Noted Time PHQ-9 Depression Total Score: 7 06/21/2014 9:20 AM CDT documented as of this encounter
--- OUTSIDE RECORDS SUMMARY | 2022-01-21 13:48 | XMS_ITS | Encounter Summary ---
:1945 Author Organization [facility] Address [address] [place] [address] Care Team Providers Name Role Phone Unavailable Primary Care Provider Unavailable Encounter Details Date Type Department Care Team Description 08/02/2020 Orders Only Department of Cardiovascular Xander Currie, Diseases in Eric Drummond M.D. [place] [address] [facility] [address] [place] [phone] (Wo rk) Social History Tobacco Use Types [...] Cardiovascular Disease Maritza Currie M.D. [address] [place], [place] [phone] (Wo rk) documented as of this encounter Visit Diagnoses Not on filedocumented in this encounter Additional Health Concerns Assessment Noted Time PHQ-9 Depression Total Score: 7 06/21/2014 9:20 AM CDT documented as of this encounter
--- OUTSIDE RECORDS SUMMARY | 2022-01-21 13:48 | XMS_ITS | Encounter Summary ---
:1945 Author Organization [facility] Address [address] [place] [address] Care Team Providers Name Role Phone Unavailable Primary Care Provider Unavailable Reason for Visit Reason Comments Eye Drainage Appointment Request (Routine) - Closed Specialty Diagnoses / Procedures Referred By Contact Refer red To Contact Ophthalmology Referral ID Status Reason Start Date Expiration Date Visits Requ ested Visits Authorized [id number] Closed 12/16/2018 12/16/2019 1 Encounter Details Date Type Department Care Team Description 12/17/2018 Office Visit Department of Janak Hadley Blephari tis Left (Primary Dx); Ophthalmology in Eric Moe M.D. Blepharitis [address] [phone] Social History Tobacco Use Types Packs/Day Years [...] in [address] Cruz in [place]. I would be happy to see her back at any time per her or Dr. Cruz's discretion. documented in this encounter Plan of Treatment Upcoming Encounters Date Type Specialty Care Team Description 01/22/2022 Office Visit Cardiovascular Disease Maritza Currie M.D. [address] [place] [phone] (Wo rk) documented as of this encounter Visit Diagnoses Diagnosis Blepharitis Left - Primary Blepharitis Right documented in this encounter Additional Health Concerns Assessment Noted Time PHQ-9 Depression Total Score: 7 06/21/2014 9:20 AM CDT documented as of this encounter
--- OUTSIDE RECORDS SUMMARY | 2022-01-21 13:48 | XMS_ITS | Encounter Summary ---
:1945 Author Organization [facility] Address [address] [place] [address] Care Team Providers Name Role Phone Unavailable Primary Care Provider Unavailable Reason for Visit Reason Comments Follow-up Encounter Details Date Type Department Care Team Description 02/24/2019 Office Visit Department of Janak Hadley Blephari tis Left (Primary Dx); Ophthalmology in Eric Moe M.D. Blepharitis [place], [place] [address] [place] [phone] Social History Tobacco Use Types Packs/Day Years [...] year complete exam, sooner if any issues. CT SUPPORT SPECIALIST documented in this encounter Plan of Treatment Upcoming Encounters Date Type Specialty Care Team Description 01/22/2022 Office Visit Cardiovascular Disease Maritza Currie M.D. [address] [place] [phone] (Wo rk) documented as of this encounter Visit Diagnoses Diagnosis Blepharitis Left - Primary Blepharitis Right documented in this encounter Additional Health Concerns Assessment Noted Time PHQ-9 Depression Total Score: 7 06/21/2014 9:20 AM CDT documented as of this encounter
--- OUTSIDE RECORDS SUMMARY | 2022-01-21 13:48 | XMS_ITS | Encounter Summary ---
:[address] [facility] Address [address] [place] [address] Care Team Providers Name Role Phone Unavailable Primary Care Provider Unavailable Reason for Visit Reason Comments Decreased Visual Acuity Appointment Request (Routine) - Closed Specialty Diagnoses / Procedures Referred By Contact Refer red To Contact Ophthalmology Referral ID Status Reason Start Date Expiration Date Visits Requ ested Visits Authorized [id number] Closed 06/29/2019 06/28/2020 1 1 Encounter Details Date Type Department Care Team Description 07/18/2019 Office Visit Department of Nakita Hadleyphaphilip Le ft (Primary Dx); Ophthalmology in [facility] Janak Moe M.D. Blepharitis Right; [place], [place] [address] Other Subjective Visual Disturbances [address] [place] [phone] Social History Tobacco Use Types Packs/Day Years [...] Disease Maritza Currie M.D. [address] [place] [phone] (Wo rk) documented as of this [...]
--- OUTSIDE RECORDS SUMMARY | 2022-01-21 13:48 | XMS_ITS | Encounter Summary ---
:1945 Author Organization [facility] Address [address] [place] [address] Care Team Providers Name Role Phone Unavailable Primary Care Provider Unavailable Encounter Details Date Type Department Care Team Description 08/07/2020 Clinical Communication Department of Family No Contact , Pcp Medicine, [facility], in [address] [phone] Social History Tobacco Use Types [...] Miscellaneous Notes Telephone Encounter - [place] Rico Ronak - 08/07/2020 12:30 PM CDT Kush Briseno [...] the phone between 7 am-6 pm, Thursday-Thursday. [place]: [phone] [place]: [phone] [place]: [phone] [place]: [phone] [place]: [phone] [place]: [phone] [facility]: [phone] Kal[place]esh [place], [place], or [place] clinics: [phone] [place]:[phone] [place]: [phone] Thank you for trusting your health care to [facility]. documented in this encounter Plan of Treatment Upcoming Encounters Date Type Specialty Care Team Description 01/22/2022 Office Visit Cardiovascular Disease Maritza Currie M.D. [address] [place] [phone] (Wo rk) documented as of this encounter Visit Diagnoses Not on filedocumented in this encounter Additional Health Concerns Assessment Noted Time PHQ-9 Depression Total Score: 7 06/21/2014 9:20 AM CDT documented as of this encounter
--- OUTSIDE RECORDS SUMMARY | 2022-01-21 13:48 | XMS_ITS | Encounter Summary ---
:1945 Author Organization [facility] Address [address] [place] [address] Care Team Providers Name Role Phone Unavailable Primary Care Provider Unavailable Reason for Visit Reason Comments Symptom Assessment SOB, Lightheadedness Encounter Details Date Type Department Care Team Description 07/18/2020 Clinical Department of Kush, Symptom Assess ment Communication Cardiovascular Vignesh Lance, (SOB, Diseases [facility] [place] [facility] [place], [place] [address] [phone] Social History Tobacco Use Types Packs/Day Years [...] to schedule patient with Dr. Currie in [place] on 07/25/2020 at 3:15pm with labs prior. [...] a message on her home phone number [phone] documented in this encounter Plan of Treatment Upcoming Encounters Date Type Specialty Care Team Description 01/22/2022 Office Visit Cardiovascular Disease Maritza Currie M.D. [address] [place] [address] [phone] (Wo rk) documented as of this encounter Results (ABNORMAL) [...] Organization Address City/State/ZIP Code Phon e Number [facility]- [address] [place] [address] [place] [address] [address] (ABNORMAL) Basic Metabolic Panel (07/25/2020 2:13 [...] eGFR-Black/Afri 39 (L) >=60 07/25/2020 [facility] can [place] mL/min/BSA 2:43 PM CDT Comment: ----ADDITIONAL INFORMATION---- Estimated GFR calculated using the 2009 CKD_EPI creatinine equation. eGFR Non-Black/ 34 (L) >=60 mL/min/BSA 07/25/2020 2:43 PM CDT CNFL [facility] Comment: ----ADDITIONAL INFORMATION---- Estimated GFR calculated using [...] Organization Address City/State/ZIP Code Phon e Number [place] [address] [place] [address] [place] [address] [address] (ABNORMAL) CBC without Differential (07/25/2020 2:13 PM CDT) [facility]ist Method Time Signature Hemoglobin 11.0 (L) [...] Organization Address City/State/ZIP Code Phon e Number [facility]- [address] [place] [address] [place] [address] [place] [address] [address] documented in this encounter Visit Diagnoses Diagnosis Ischemic Heart Chronic Disease - Primary Diabetes Mellitus Type 2 (HCC) documented in this encounter Additional Health Concerns Assessment Noted Time PHQ-9 Depression Total Score: 7 06/21/2014 9:20 AM CDT documented as of this encounter
--- OUTSIDE RECORDS SUMMARY | 2022-01-21 13:48 | XMS_ITS | Encounter Summary ---
:1945 Author Organization [facility] Address [address] [place] [address] Care Team Providers Name Role Phone Unavailable Primary Care Provider Unavailable Reason for Referral Specialty Diagnoses / Procedures Referred By Contact Refer red To Contact [facility] [place] [facility] Professional [facility] [address] [place] [address] Referral ID Status Reason Start Date Expiration Date Visits Requ ested Visits Authorized ANALYST Encounter Details Date Type Department Care Team Description 04/20/2020 Immunization Department of Yasmani Wells For COVID-19 Medicine, [place] M.D. Vaccine Immunization Professional Building, [address] [place] [address] (Primary Dx) in [address] [address] [place] [address] Social History Tobacco Use Types Packs/Day [...] Cardiovascular Disease Maritza Currie M.D. [address] [place], [place] 55 [phone] (Wo rk) Scheduled Referrals [...]
--- OUTSIDE RECORDS SUMMARY | 2022-01-21 13:48 | XMS_ITS | Encounter Summary ---
:1945 Author Organization [facility] Address [address] [place] [address] Care Team Providers Name Role Phone Unavailable Primary Care Provider Unavailable Reason for Referral Outpatient (Routine) - Closed Specialty Diagnoses / Procedures Referred By Contact Refer red To Contact Cardiovascular Disease Vignesh Currie [facility] [place] [facility] M.D. [address] [place] [phone] Referral ID Status Reason Start Date Expiration Date Visits Requ ested Visits Authorized [id number] Closed 07/29/2018 07/29/2019 1 1 Reason for Visit Reason Comments Follow-up Outpatient (Routine) - Closed Specialty Diagnoses / Procedures Referred By Contact Refer red To Contact Cardiovascular Disease Vignesh Currie [facility] [place] [facility] M.D. [address] [place] [phone] Referral ID Status Reason Start Date Expiration Date Visits Requ ested Visits Authorized [id number] Closed 04/26/2018 04/26/2019 1 1 Encounter Details Date Type Department Care Team Description 07/29/2018 Office Visit Department of Vignesh Currie art Chronic Disease (Primary Dx); Cardiovascular Diseases Lee Lance Diabetes Mellitus Type 2 (HCC); in [place] [address] [address] [place], [place] [phone] (Work) [phone] Social History Tobacco Use Types Packs/Day Years [...] Marcial is a pleasant 73-year-old female from [place], [place]. She is known to me from [facility] back in April. At that time, [...] consultation with greater than 50% in direct irgi-dc-qxss counseling. CT CT Job ID: [id number]/[id number] documented in this encounter Plan of Treatment Upcoming Encounters Date Type Specialty Care Team Description 01/22/2022 Office Visit Cardiovascular Disease Maritza Currie M.D. [address] [place] [phone] (Wo rk) Scheduled Referrals Name Type [...]
--- OUTSIDE RECORDS SUMMARY | 2022-01-21 13:48 | XMS_ITS | Encounter Summary ---
:1945 Author Organization [facility] Address [address] [place] [address] Care Team Providers Name Role Phone Unavailable Primary Care Provider Unavailable Reason for Visit Reason Onset Date Comments Medical Information 01/24/2019 clarification on ble pharitis information Encounter Details Date Type Department Care Team Description 01/24/2019 Clinical Department of Dorina Bucio, Medical Infor damian Communication Ophthalmology in [facility] RJairo (maryann garciaation [place], [place] blepharitis [address] [facility] information) [place] [address] Social History Tobacco Use Types [...] 01/24/2019 3:28 PM CST Abbie- nurse at [facility]- called on behalf of this [...] and to discuss with any eye doctor. CY ADVISOR documented in this encounter Plan of Treatment Upcoming Encounters Date Type Specialty Care Team Description 01/22/2022 Office Visit Cardiovascular Disease Maritza Currie M.D. [address] [place] [phone] (Wo rk) documented as of this encounter Visit Diagnoses Not on filedocumented in this encounter Additional Health Concerns Assessment Noted Time PHQ-9 Depression Total Score: 7 06/21/2014 9:20 AM CDT documented as of this encounter
--- OUTSIDE RECORDS SUMMARY | 2022-01-21 13:48 | XMS_ITS | Encounter Summary ---
:1945 Author Organization [facility] Address [address] [place] [address] Care Team Providers Name Role Phone Unavailable Primary Care Provider Unavailable Encounter Details Date Type Department Care Team Description 01/07/2019 Clinical Communication Department of Josi Pittman, Ophthalmology in [place] [address] [phone] Social History Tobacco Use Types Packs/Day Years [...] Cardiovascular Disease Maritza Currie M.D. [address] [place], [place] [address] [phone] (Wo rk) documented as of this encounter Visit Diagnoses Not on filedocumented in this encounter Additional Health Concerns Assessment Noted Time PHQ-9 Depression Total Score: 7 06/21/2014 9:20 AM CDT documented as of this encounter
--- OUTSIDE RECORDS SUMMARY | 2022-01-21 13:48 | XMS_ITS | Encounter Summary ---
:1945 Author Organization [facility] Address [address] [place] [address] Care Team Providers Name Role Phone Unavailable Primary Care Provider Unavailable Reason for Visit Reason Comments Advice Only Encounter Details Date Type Department Care Team Description 06/29/2019 Clinical Communication Department of Lilian Hadley Only Ophthalmology in [facility] Janak Moe [place], [place] 701 [facility] [address] [place] [phone] Social History Tobacco Use [...] Cardiovascular Disease Maritza Currie M.D. [address] [place], [place] [address] [phone] (Wo rk) documented as of this encounter Visit Diagnoses Not on filedocumented in this encounter Additional Health Concerns Assessment Noted Time PHQ-9 Depression Total Score: 7 06/21/2014 9:20 AM CDT documented as of this encounter
--- OUTSIDE RECORDS SUMMARY | 2022-01-21 13:48 | XMS_ITS | Encounter Summary ---
:1945 Author Organization [facility] Address [address] [place] [address] Care Team Providers Name Role Phone Unavailable Primary Care Provider Unavailable Encounter Details Date Type Department Care Team Description 07/18/2019 Sil[place] Schedule Department of Janak Hadley Ophthalmology in [place] M. [address] [phone] (Wo rk) Social History Tobacco Use [...] Cardiovascular Disease Maritza Currie M.D. [address] [place], [place] [address] [phone] (Wo rk) documented as [...]
--- OUTSIDE RECORDS SUMMARY | 2022-01-21 13:48 | XMS_ITS | Encounter Summary ---
:1945 Author Organization [facility] Address [address] [place] [address] Care Team Providers Name Role Phone Unavailable Primary Care Provider Unavailable Encounter Details Date Type Department Care Team Description 05/15/2020 Immunization Department of Yasmani Wells For COVID-19 Medicine, [place] Lee Simons Vaccine Immunization Professional Building, [address] [place] [address] [address]VE [address] [place] [address] [facility] [phone] Social History Tobacco Use Types Packs/Day Years [...] Disease Maritza Currie M.D. [address] [place], [place] 55 [phone] (Wo rk) documented as of this encounter Visit Diagnoses Diagnosis Encounter For COVID-19 Vaccine Immunizat ion documented in this encounter Additional Health Concerns Assessment Noted Time PHQ-9 Depression Total Score: 7 06/21/2014 9:20 AM CDT documented as of this encounter
--- OUTSIDE RECORDS SUMMARY | 2022-01-21 13:48 | XMS_ITS | Encounter Summary ---
:1945 Author Organization [facility] Address [address] [place] [address] Care Team Providers Name Role Phone Unavailable Primary Care Provider Unavailable Reason for Referral Outpatient (Routine) - Closed Specialty Diagnoses / Procedures Referred By Contact Refer red To Contact Diagnoses Opacity Lens Posterior Capsule Zach Novoa M.D. [facility] Region Procedures Yag Capsulotomy - OS - Left Eye [address] [place] [address] Referral ID Status Reason Start Date Expiration Date Visits Requ ested Visits Authorized [id number] Closed 06/14/2020 06/14/2021 1 1 Reason for Visit Reason Comments Yag Laser Encounter Details Date Type Department Care Team Description 06/14/2020 Office Visit Department of Zach Novoa Opacity Le ns Posterior Capsule (Primary Dx); Ophthalmology in Eric Simons M.D. Dry Eye Syndrome [address] [phone] Social History Tobacco Use Types Packs/Day Years [...] and dry eye treatment 3. See Dr. Vasuqez in about 2 weeks for a post Yag manifest refraction. documented in this encounter Plan of Treatment Upcoming Encounters Date Type Specialty Care Team Description 01/22/2022 Office Visit Cardiovascular Disease Maritza Currie M.D. [address] [place], [place] [phone] (Wo rk) documented as [...]
--- OUTSIDE RECORDS SUMMARY | 2022-01-21 13:48 | XMS_ITS | Encounter Summary ---
:1945 Author Organization [facility] Address [address] [place] [address] Care Team Providers Name Role Phone Unavailable Primary Care Provider Unavailable Reason for Visit Reason Onset Date Comments Results 03/25/2019 Encounter Details Date Type Department Care Team Description 03/25/2019 Clinical Communication Department of Vignesh Currie Cardiovascular Diseases Lee Lance in [address] [address] [place], [place] [phone] (Work) [phone] Social History Tobacco Use Types Packs/Day Years [...] R.N. - 03/25/2019 1:57 PM CST mailed LBEATER Telephone Encounter - Ashley oSria - 03/25/2019 1:48 PM CST Reason for Communication: Results Current Can Nursing/Provider leave a detailed message: Yes Did the patient refuse triage through Nurse line? (for symptom based concerns): N/A Action Needed: Patient had lab work when she saw Dr. Currie on 03/17 and is wondering if her results can mailed to her. Verified address on file. Name of Medication (if relevant): N/A LBEATER documented in this encounter Plan of Treatment Upcoming Encounters Date Type Specialty Care Team Description 01/22/2022 Office Visit Cardiovascular Disease Maritza Currie M.D. [address] [place] [phone] (Wo rk) documented as of this encounter Visit Diagnoses Not on filedocumented in this encounter Additional Health Concerns Assessment Noted Time PHQ-9 Depression Total Score: 7 06/21/2014 9:20 AM CDT documented as of this encounter
--- OUTSIDE RECORDS SUMMARY | 2022-01-21 13:49 | XMS_ITS | Encounter Summary ---
:1945 Author Organization [facility] Address [address] [place] [address] Care Team Providers Name Role Phone Unavailable Primary Care Provider Unavailable Encounter Details Date Type Department Care Team Description 07/29/2016 Hospital Encounter [facility]X [facility] Elizabeth Patel, C.N.P. [address] [place] [phone] (Wo rk) Social History Tobacco [...] 04/26/2018 40 mg tablet mouth at bedtime. glipiZIDE (for_GLUCOTROL) Take 10 mg by mouth 0 0 07/03/2016 01/13/2022 5 mg tablet every morning before breakfast. indomethacin (for_INDOCIN) Take 1 capsule by 0 [...] Summary-Paper Based CODING DATE: 08/01/2016 FINAL [facility] STATUS: * Discharged to Home or [...] WARD Date Saved: 08/01/2016 12:05 pm Source: [employer] (formerly [employer]) Document Id: [id number] documented in this encounter Plan of Treatment Upcoming Encounters Date Type Specialty Care Team Description 01/22/2022 Office Visit Cardiovascular Disease Maritza Currie M.D. [address] [place] [phone] (Wo rk) documented as of this encounter Visit Diagnoses Not on filedocumented in this encounter Additional Health Concerns Assessment Noted Time PHQ-9 Depression Total Score: 7 06/21/2014 9:20 AM CDT documented as of this encounter
--- OUTSIDE RECORDS SUMMARY | 2022-01-21 13:49 | XMS_ITS | Encounter Summary ---
:1945 Author Organization [facility] Address [address] [place] [address] Care Team Providers Name Role Phone Unavailable Primary Care Provider Unavailable Encounter Details Date Type Department Care Team Description 08/03/2017 Hospital Encounter Department of Olu Escamilla lipidemia Laboratory Medicine in Erik Jean-Baptiste M.D. [place], [address] [place] [address] [phone] (Work) [phone] Social History Tobacco Use Types Packs/Day Years [...] 8 (eight) hours as needed for anxiety. leflunomide (ARAVA) 20 mg Take 20 mg by mouth 0 tablet daily. ASPIRIN ORAL Take 81 mg by mouth 0 03/02/2012 daily. Take with food for heart health. atorvastatin (for_LIPITOR) Take 1 tablet by 0 04/26/2018 40 mg tablet mouth at bedtime. ergocalciferol (DRISDOL) Take 50,000 Units 0 01/13/2022 [...] Cardiovascular Disease Maritza Currie M.D. [address] [place] [phone] (Wo rk) documented as of this [...] athologist Signature Cholesterol, 258 (H) mg/dL 08/03/2017 [facility] Total 9:56 AM CDT [facility] Comment: ----REFERENCE VALUE---- Desirable: < 200 Borderline high: 200 - 239 High: > or = 240 Triglycerides 149 mg/dL 08/03/2017 9:56 AM CDT [facility] Comment: ----REFERENCE VALUE---- Normal: <150 Borderline high: 150-199 High: 200-499 Very high: > or =500 Cholesterol, HDL, S 62 >=50 mg/dL 08/03/2017 9:56 AM CDT [facility] Calculated LDL 166 (H) mg/dL 08/03/2017 9:56 AM CDT [facility] Comment: ----REFERENCE VALUE---- Desirable: <100 Above Desirable: 100-129 Borderline high: 130-159 High: 160-189 Very high: > or =190 Cholesterol, Non-HDL, 196 (H) mg/dL 08/03/2017 9:56 AM CDT [facility] LAB Comment: ----REFERENCE VALUE---- Desirable: <130 Above Desirable: 130-159 Borderline high: 160-189 High: 190-219 Very high: > or =220 Specimen Anatomical Collection Method Collection Time Receive d Time (Source) Location / / Volume Laterality Blood 08/03/2017 9:11 AM 8 9:12 CDT AM CDT Erik Hayes M.D. LAB BLOOD ADD-ON Performing Organization Address City/State/ZIP Code Phon e Number [place] [id number] [place] [address] LAB (ABNORMAL) BMP (Basic Metabolic Panel) (08/03/2017 9:11 AM CDT) Analysis Performed At Patho logist Time Signature Potassium, S 3.9 3.6 - 5.2 08/03/2017 [facility] mmol/L 9:56 AM CDT [facility] Sodium, S 143 135 - 145 08/03/2017 [facility] mmol/L 9:56 AM [facility] Chloride, S 106 98 - 107 08/03/2017 [facility] mmol/L 9:56 AM T [facility] Bicarbonate, S 25 22 - 29 08/03/2017 [facility] mmol/L 9:56 AM T [facility] Anion Gap 12 7 - 15 08/03/2017 [facility] 9:56 AM T [facility] BUN (Blood Urea 27 (H) 6 - 21 08/03/2017 [facility] Nitrogen), S mg/dL 9:56 AM T [facility] Creatinine 1.27 (H) 0.59 - 08/03/2017 [facility] 1.04 mg/dL 9:56 AM T [facility] eGFR-Non 42 (L) >=60 08/03/2017 [facility] Black/ mL/min/BSA 9:56 AM T [facility] LAB Comment: ----ADDITIONAL INFORMATION---- Estimated GFR calculated using the 2009 CKD_EPI creatinine equation. eGFR-Black/ 49 (L) >=60 mL/min/BSA 08/03/2017 9:56 AM [facility] LAB Comment: ----ADDITIONAL INFORMATION---- Estimated GFR calculated using the 2009 CKD_EPI creatinine equation. Calcium, Total, S 9.8 8.8 - 10.2 mg/dL 08/03/2017 9 :56 AM CDT [facility] Glucose, S 140 70 - 140 mg/dL 08/03/2017 9:56 AM CDT [facility] LAB Specimen Anatomical Collection Method Collection Time Receive d Time (Source) Location / / Volume Laterality Blood 08/03/2017 9:11 AM 8 9:12 CDT AM CDT Erik Hayes M.D. LAB BLOOD ADD-ON Performing Organization Address City/State/ZIP Code Phon e Number [facility] [address] [address] [place] [facility] documented in this encounter Visit Diagnoses Diagnosis Hyperlipidemia documented in this encounter Additional Health Concerns Assessment Noted Time PHQ-9 Depression Total Score: 7 06/21/2014 9:20 AM CDT documented as of this encounter
--- OUTSIDE RECORDS SUMMARY | 2022-01-21 13:49 | XMS_ITS | Encounter Summary ---
:1945 Author Organization [facility] Address [address] [place] [address] Care Team Providers Name Role Phone Unavailable Primary Care Provider Unavailable Reason for Visit Reason Onset Date Comments orders needed 06/24/2017 Encounter Details Date Type Department Care Team Description 06/24/2017 Clinical Communication Department of whitney Escamilla needed Cardiovascular Diseases Erik Jean-Baptiste M.D. in [place], [facility] th [address] [place] [address] [phone] (Work) [phone] Social History Tobacco Use Types Packs/Day Years [...] for the EKG during her cardiology appt. Toi - Angie Telephone Encounter - Nicole Madsen [...] Office Visit Cardiovascular Disease Maritza Currie M.D. [address] [place] [address] [phone] (Wo rk) documented as of this encounter Visit Diagnoses Not on filedocumented in this encounter Additional Health Concerns Assessment Noted Time PHQ-9 Depression Total Score: 7 06/21/2014 9:20 AM CDT documented as of this encounter
--- OUTSIDE RECORDS SUMMARY | 2022-01-21 13:49 | XMS_ITS | Encounter Summary ---
:1945 Author Organization [facility] Address [address] [place] [address] Care Team Providers Name Role Phone Unavailable Primary Care Provider Unavailable Encounter Details Date Type Department Care Team Description 01/12/2017 Abstract Department of Neurological Provider, [facility] orical Surgery in [address] [phone] Social History Tobacco Use Types Packs/Day [...] Cardiovascular Disease Maritza Currie M.D. [address] [place], [place] [address] [phone] (Wo rk) documented as of this encounter Visit Diagnoses Not on filedocumented in this encounter Additional Health Concerns Assessment Noted Time PHQ-9 Depression Total Score: 7 06/21/2014 9:20 AM CDT documented as of this encounter
--- OUTSIDE RECORDS SUMMARY | 2022-01-21 13:49 | XMS_ITS | Encounter Summary ---
:1945 Author Organization [facility] Address [address] [place] [address] Care Team Providers Name Role Phone Unavailable Primary Care Provider Unavailable Encounter Details Date Type Department Care Team Description 02/26/2018 Nurse Triage Department of Marizol Paul R.N. Medicine, [facility], [address] [facility] [place], [place] [address] [place] [address] [place] [address] [phone] Social History Tobacco Use Types Packs/Day Years [...] Visit Cardiovascular Disease Maritza Currie M.D. [address] [place] [phone] (Wo rk) documented as of this encounter Visit Diagnoses Not on filedocumented in this encounter Additional Health Concerns Assessment Noted Time PHQ-9 Depression Total Score: 7 06/21/2014 9:20 AM CDT documented as of this encounter
--- OUTSIDE RECORDS SUMMARY | 2022-01-21 13:49 | XMS_ITS | Encounter Summary ---
:1945 Author Organization [facility] Address [address] [place] [address] Care Team Providers Name Role Phone Unavailable Primary Care Provider Unavailable Encounter Details Date Type Department Care Team Description 01/14/2018 Nurse Triage Department of Kyra Bolden R.N. Medicine, [facility], in [address] [place], [place] [address] [place] [address] [place] [address] [phone] Social History Tobacco Use Types Packs/Day Years [...] Cardiovascular Disease Maritza Currie M.D. [address] [place], [place] [phone] (Wo rk) documented as of this encounter Visit Diagnoses Not on filedocumented in this encounter Additional Health Concerns Assessment Noted Time PHQ-9 Depression Total Score: 7 06/21/2014 9:20 AM CDT documented as of this encounter
--- OUTSIDE RECORDS SUMMARY | 2022-01-21 13:49 | XMS_ITS | Encounter Summary ---
:1945 Author Organization [facility] Address [address] [place] [address] Care Team Providers Name Role Phone Unavailable Primary Care Provider Unavailable Reason for Referral Outpatient (Routine) - Closed Specialty Diagnoses / Procedures Referred By Contact Refer red To Contact Cardiovascular Disease MARIA DEL ROSARIO Escamilla [place] Erik Jean-Baptiste M.D. [address] [place] [phone] Referral ID Status Reason Start Date Expiration Date Visits Requ ested Visits Authorized [id number] Closed 08/03/2017 08/03/2018 1 1 Reason for Visit Reason Comments Follow-up Yearly follow-up. No chest p ain, no increase in SOB. Continues to have some activity at times. No edema Outpatient (Routine) - Closed Specialty Diagnoses / Procedures Referred By Contact Refer red To Contact Diagnoses Hyperlipidemia Erik Escamilla M.D. [address] [place] [phone] Referral ID Status Reason Start Date Expiration Date Visits Requ ested Visits Authorized [id number] Closed 11/28/2016 05/27/2017 1 1 Encounter Details Date Type Department Care Team Description 08/03/2017 Office Visit Department of Jenny Hayes, Coronary Ar wilbert Disease Saxman Vessel (Primary Dx); Cardiovascular Diseases Erik Jean-Baptiste M.D. Hyperlipidemia; in [address] Arthritis Rheumatoid (HCC); [place], [place] Diabetes Mellitus Type 2 (HC C); [address] [place] [address] [address] [address] Nightmare Disorder [place], [place] [phone] (Work) [phone] Social History Tobacco Use Types Packs/Day Years [...] Amato M.D. - 08/03/2017 9:30 AM CDT [facility] Reason for the visit: Follow-up on chronic stable coronary artery disease, medication review, new diagnosis of rheumatoid arthritis History of Present Illness: Had the pleasure meeting with Mrs Adams, a delightful 72-year-old community dwelling, independent senior, well known to the Cardiology practice here at [facility] mainly due to a history of established [...] [facility] [...] drug-eluting stent to the LAD in 2015, [place] Class 1 # 2 Type 2 diabetes [...] Cardiovascular Disease Maritza Currie M.D. [address] [place], [place] [phone] (Wo rk) Scheduled Referrals [...] Signature Ventricular Rate 83 BPM MUSE ECG/Min WA Interval 144 ms MUSE QRSD Interval 84 ms MUSE QT Interval 362 ms MUSE QTC Interval 425 ms MUSE P [place] 62 degrees MUSE R [place] -20 degrees MUSE T Wave [place] 79 degrees MUSE Specimen Anatomical Collection Method [...] Signature Ventricular Rate 78 BPM MUSE ECG/Min [place] Interval 136 ms MUSE QRSD Interval 80 ms MUSE QT Interval 378 ms MUSE QTC Interval 430 ms MUSE P [place] 59 degrees MUSE R [place] -13 degrees MUSE T Wave [place] 74 degrees MUSE Specimen Anatomical Collection Method [...] encounter Visit Diagnoses Diagnosis Coronary Artery Disease Saxman Vessel - Primary Hyperlipidemia Arthritis Rheumatoid (HCC) Diabetes Mellitus Type 2 (HCC) Nightmare Disorder Hyperlipidemia Arthritis Rheumatoid (HCC) Coronary Artery Disease Saxman Vessel Diabetes Mellitus Type 2 (HCC) documented in this encounter Additional Health Concerns Assessment Noted Time PHQ-9 Depression Total Score: 7 06/21/2014 9:20 AM CDT documented as of this encounter
--- OUTSIDE RECORDS SUMMARY | 2022-01-21 13:49 | XMS_ITS | Encounter Summary ---
:1945 Author Organization [facility] Address [address] [place] [address] Care Team Providers Name Role Phone Unavailable Primary Care Provider Unavailable Encounter Details Date Type Department Care Team Description 02/02/2018 Hospital Encounter Department of Adriane Patel, Mass Inguinal Radiology in [address] [address] [place], [place] [phone] (W ork) [phone] Social History Tobacco Use Types Packs/Day Years [...] Cardiovascular Disease Maritza Currie M.D. [address] [place] [address] [phone] (Wo rk) documented as of this encounter Visit Diagnoses Diagnosis Mass Inguinal documented in this encounter Additional Health Concerns Assessment Noted Time PHQ-9 Depression Total Score: 7 06/21/2014 9:20 AM CDT documented as of this encounter
--- OUTSIDE RECORDS SUMMARY | 2022-01-21 13:49 | XMS_ITS | Encounter Summary ---
:1945 Author Organization [facility] Address [address] [place] [address] Care Team Providers Name Role Phone Unavailable Primary Care Provider Unavailable Reason for Visit Reason Comments Hyperglycemia blood sugar at 2115 536 has taken an extra glypizide at 2105. is not insulin dependent but had a dose of IV steroids around 1300 for arthritis flare. Encounter Details Date Type Department Care Team Description 05/25/2017 Emergency [place] [facility] Juan Urias Hyperglycemia (Primary Department R, M.D. Dx) [address] [place], [place] [address]VD [address] [place] [phone] Social History Tobacco Use Types Packs/Day Years [...] cannot be sent through Care Everywhere. Hyperglycemia (Cameroonian)documented in this encounter Medications at Time of [...] 5 mg tablet every morning before breakfast. levothyroxine Take 1 tablet by 0 12/25/201604/26 (for_SYNTHROID, mouth daily. For LEVOTHROID) 75 mcg tablet thyroid replacement. metFORMIN XR Take 2 tablets by 0 01/09/201604/26 (for_GLUCOPHAGE-XR) 500 mg mouth daily with 24 hr tablet dinner. metoprolol succinate Take 0.5 tablets by 0 201608/03/2017 (for_TOPROL-XL) 25 mg 24 mouth daily. hr tablet atorvastatin (for_LIPITOR) Take 1 tablet by 0 04/26/2018 40 mg tablet mouth at bedtime. indomethacin (for_INDOCIN) Take 1 capsule by 0 04/26/2018 25 mg capsule mouth 3 (three) times a day as needed for pain. nitroglycerin (NITROSTAT) Place under the 0 01/2607/29/2018 [...] Cardiovascular Disease Maritza Currie M.D. [address] [place] [address] [phone] (Wo rk) documented as of this [...] POCT, 399 (H) 70 - 140 05/25/2017 [facility] B mg/dL 10:50 PM CDT [facility] LAB Specimen Anatomical Collection Method Collection Time Receive d Time (Source) Location / / Volume Laterality Blood 05/25/2017 10:50 05/25/2017 PM CDT 10:56 PM CDT Generic [facility] LAB POCT ORDERABLES-MANUAL Performing Organization Address City/State/[facility] Code [facility] e Number [facility]- [address] [place] [id number] [place] [address] LAB (ABNORMAL) VBG (Venous Blood Gas), POCT (05/25/2017 10:42 PM CDT) Patholo gist Method Time Signature pH, Venous, 7.39 7.32 - 7.43 05/25/2017 [facility] POCT, B 10:42 PM CDT [facility] LAB pCO2, Venous, 32 (L) 41 - 51 mm Hg 05/25/2017 [facility] POCT, B 10:42 PM CDT [facility] pO2, Venous, 55 Not applicable 05/25/2017 [facility] POCT, B mm Hg 10:42 PM [facility] HCO3, Venous, 20 Not applicable 05/25/2017 [facility] POCT, B mmol/L 10:42 PM CDT [facility] Base Excess, -5 Not applicable 05/25/2017 [facility] Venous, POCT, mmol/L 10:42 PM CDT [facility] O2 Saturation, 88 Not applicable 05/25/2017 [facility] IC Venous, POCT, % 10:42 PM T [facility] LAB Sample Type, RAJI 05/25/2017 [facility] Blood Gas, 10:42 PM [facility] LAB FIO2, POCT 0.00 [id number] 05/25/2017 [facility] 10:42 PM CDT [facility] Comment: ----ADDITIONAL INFORMATION---- Performed at the Point of Care Specimen Anatomical Collection Method Collection Time Receive d Time (Source) Location / / Volume Laterality Blood 05/25/2017 10:42 05/25/2017 PM CDT 10:53 PM CDT Generic [facility] LAB POCT ORDERABLES - DEVICE Performing Organization Address City/[facility] Code Phon e Number [facility]- [id number] [address] [facility] (ABNORMAL) Microscopic Manual (05/25/2017 10:24 PM CDT) athologist Signature White Blood 4-10 /hpf 05/25/2017 [facility] Cells 10:49 PM CDT [facility] Comment: ----REFERENCE VALUE---- Males: 0-3 Females: 0-10 Unknown: 0-10 Red Blood Cells Occ-2 0 - 2 /hpf 05/25/2017 10:49 PM CDT [facility] LAB Hyaline Casts Occasional /lpf 05/25/2017 10:49 PM CDT [facility] LAB Squamous Cells Occ-3 /hpf 05/25/2017 10:49 PM CDT [facility] Bacteria Present (A) None Seen 05/25/2017 10:49 PM CDT [facility] LAB Specimen Anatomical Collection Method Collection Time Receive d Time (Source) Location / / Volume Laterality Urine 05/25/2017 10:24 05/25/2017 PM CDT 10:29 PM CDT Juan Urias M.D. LAB URINE ORDERABLES Performing Organization Address City/State/ZIP Code Phon e Number [facility]- [id number] [address] [place] LAB (ABNORMAL) Urinalysis with Microscopic if Indicated (05/25/2017 10:24 PM CDT) P athologist Signature Source Midstream 05/25/2017 [facility] 10:29 PM [facility] LAB Clarity Clear Clear 05/25/2017 [facility] 10:29 PM [facility] LAB Color Yellow 05/25/2017 [facility] 10:29 PM [facility] LAB Comment: ----REFERENCE VALUE---- Colorless Yellow Zoey Blood Trace (A) Negative 05/25/2017 10:29 PM T [facility] LAB Nitrite Negative Negative 05/25/2017 10:29 PM T [facility] LAB Leukocyte Esterase Trace (A) Negative 05/25/2017 10:29 PM T [facility] LAB Protein Negative mg/dL 05/25/2017 10:29 PM T [facility] LAB Comment: ----REFERENCE VALUE---- Negative Trace Glucose >=1000 (A) Negative mg/dL 05/25/2017 10:29 PM [facility] LAB Ketones, QL(U) Trace (A) Negative mg/dL 05/25/2017 10:29 PM [facility] LAB Bilirubin Negative Negative 05/25/2017 10:29 PM [facility] LAB pH 5.0 5.0 - 8.0 05/25/2017 10:29 PM [facility] Specific [place] 1.010 1.001 - 1.035 05/25/2017 10:29 PM [facility] LAB Urobilinogen 0.2 0.2 - 1.0 mg/dL 05/25/2017 10:29 PM M [facility] LAB Specimen Anatomical Collection Method Collection Time Receive d Time (Source) Location / / Volume Laterality Urine (Urine, 05/25/2017 10:24 05/25/2017 Clean Catch) PM CDT 10:24 PM CDT Juan Urias M.D. LAB URINE ORDERABLES Performing Organization Address [facility] Phon e Number [address] [address] [place] LAB (ABNORMAL) Glucose, POCT (05/25/2017 10:11 PM CDT) P athologist Signature Glucose, POCT, 441 (H) 70 - 140 05/25/2017 [facility] B mg/dL 10:11 PM [facility] LAB Specimen Anatomical Collection Method Collection Time Receive d Time (Source) Location / / Volume Laterality Blood 05/25/2017 10:11 05/25/2017 PM CDT 10:19 PM CDT Generic [facility] LAB POCT ORDERABLES-MANUAL Performing Organization Address City/[facility] Phon e Number [address] [address] [place] LAB (ABNORMAL) CMP (Comprehensive Metabolic Panel) (05/25/2017 9:52 PM CDT) Analysis Performed At Patho logist Time Signature Potassium, P 4.5 3.6 - 5.2 05/25/2017 [facility] mmol/L 10:21 PM [facility] LAB Sodium, P 130 (L) 135 - 145 05/25/2017 [facility] mmol/L 10:21 PM [facility] LAB Chloride, P 92 (L) 98 - 107 05/25/2017 [facility] mmol/L 10:21 PM [facility] LAB Bicarbonate, P 19 (L) 22 - 29 05/25/2017 [facility] mmol/L 10:21 PM [facility] LAB Anion Gap, P 19 (H) 7 - 15 05/25/2017 [facility] 10:21 PM [facility] LAB BUN (Blood Urea 38 (H) 6 - 21 05/25/2017 [facility] Nitrogen), P mg/dL 10:21 [facility] LAB Creatinine 1.05 (H) 0.59 - 05/25/2017 [facility] 1.04 mg/dL 10:21 [facility] LAB eGFR-Black/Afri 62 >=60 05/25/2017 [facility] can Yemeni mL/min/BSA 10:21 [facility] LAB Comment: ----ADDITIONAL INFORMATION---- Estimated GFR calculated using the 2009 CKD_EPI creatinine equation. eGFR Non-Black/ 54 (L) >=60 mL/min/BSA 05/25/2017 10:[address] [facility] LAB Comment: ----ADDITIONAL INFORMATION---- Estimated GFR calculated using the 2009 CKD_EPI creatinine equation. Calcium, Total, P 9.0 8.9 - 10.1 05/25/2017 10:21 [facility] mg/dL [facility] Glucose, P 499 (CH) 70 - 140 mg/dL 05/25/2017 10:21 [facility] LAB Protein, Total, P 7.2 6.3 - 7.9 g/dL 05/25/2017 10:21 [facility] LAB Albumin, P 3.7 3.5 - 5.0 g/dL 05/25/2017 10:21 [facility] Aspartate 21 8 - 43 U/L 05/25/2017 10:21 [facility] Aminotransferase (AST), P [facility] Alkaline Phosphatase, P 74 55 - 142 U/L 05/25/2017 10 :21 [facility] Alanine Aminotransferase 20 7 - 45 U/L 05/25/2017 10: 21 [facility] (ALT), P [facility] Bilirubin, Total, P <0.2 <=1.2 mg/dL 05/25/2017 10:[address] [facility] LAB Specimen Anatomical Collection Method Collection Time Receive d Time (Source) Location / / Volume Laterality Blood (Blood, 05/25/2017 9:52 PM 05/26/19 18 9:52 Venous) CDT PM CDT Juan Urias M.D. LAB BLOOD ADD-ON Performing Organization Address City/State/ZIP Code Phon e Number [facility]- [id number] [address] [place] [facility] (ABNORMAL) CBC with Differential (05/25/2017 9:52 PM CDT) [facility] Method Time Signature Hemoglobin 11.0 (L) 11.6 - 05/25/2017 [facility] 15.0 g/dL 10:07 PM CDT [facility] Hematocrit 33.3 (L) 35.5 - 05/25/2017 [facility] 44.9 % 10:07 PM CDT [facility] Erythrocytes 3.55 (L) 3.92 - 05/25/2017 [facility] 5.13 10:07 PM CDT [facility] x10(12)/[facility] MCV 93.8 78.2 - 05/25/2017 [facility] 97.9 fL 10:07 PM CDT [facility] RBC Distrib Width 13.0 12.2 - 05/25/2017 [facility] 16.1 % 10:07 PM CDT [facility] Platelet Count 235 157 - 371 05/25/2017 [facility] x10(9)/L 10:07 PM CDT [facility] Leukocytes 8.9 3.4 - 9.6 05/25/2017 [facility] x10(9)/L 10:07 PM T [facility] Neutrophils 8.56 (H) 1.56 - 05/25/2017 [facility] 6.45 10:07 PM CDT [facility] x10(9)/[facility] Lymphocytes 0.22 (L) 0.95 - 05/25/2017 [facility] 3.07 10:07 PM CDT [facility] x10(9)/[facility] Monocytes 0.09 (L) 0.26 - 05/25/2017 [facility] 0.81 10:07 PM CDT [facility] x10(9[facility] Eosinophils 0.01 (L) 0.03 - 05/25/2017 [facility] 0.48 10:07 PM CDT [facility] x10(9)/[facility] Basophils 0.01 0.01 - 05/25/2017 [facility] 0.08 10:07 PM CDT [facility] x10(9)/L [facility] [place] [facility] Specimen Anatomical Collection Method Collection Time Receive d Time (Source) Location / / Volume Laterality Blood (Blood, 05/25/2017 9:52 PM 05/26/19 18 9:52 Venous) CDT PM CDT Juan Urias M.D. LAB BLOOD ADD-ON Performing Organization Address City/[facility]/ZIP Code Phon e Number [address] [address] [place] LAB Blood Gas, POCT (05/25/2017 1:38 PM CDT) Analysis Performed At Path logist Time Signature Blood Gas, Collected 05/27/2017 [facility] POCT, B 1:38 PM CDT [facility] Specimen Anatomical Collection Method Collection Time Receive d Time (Source) Location / / Volume Laterality Blood (Other, 05/25/2017 1:38 PM 05/28/19 18 1:38 Specify in CDT PM CDT Comments) Juan Urias M.D. LAB POCT ORDERABLES - DEVICE Performing Organization Address [facility]/ZIP Code Phon e Number [address] [address] [place] [facility] documented in this encounter Visit Diagnoses Diagnosis Hyperglycemia - Primary documented in this encounter Additional Health Concerns Assessment Noted Time PHQ-9 Depression Total Score: 7 06/21/2014 9:20 AM CDT documented as of this encounter
--- OUTSIDE RECORDS SUMMARY | 2022-01-21 13:49 | XMS_ITS | Encounter Summary ---
:1945 Author Organization [facility] Address [address] [place] [address] Care Team Providers Name Role Phone Unavailable Primary Care Provider Unavailable Reason for Referral Outpatient (Routine) - Closed Specialty Diagnoses / Procedures Referred By Contact Refer red To Contact Diagnoses Hyperlipidemia Erik Escamilla M.D. [address] [place] [address] Referral ID Status Reason Start Date Expiration Date Visits Requ ested Visits Authorized [id number] Closed 11/28/2016 05/27/2017 1 1 Encounter Details Date Type Department Care Team Description 11/28/2016 Orders Only Department of Olu Escamillalipide luis; Cardiovascular Medicine Erik Jean-Baptiste M.D. Diabetes Mellitus Type 2 Without Complic ation (HCC) in [facility] [address] [place] [address] [place] [phone] Social History Tobacco Use Types Packs/Day Years [...] Cardiovascular Disease Maritza Currie M.D. [address] [facility] [place] [phone] (Wo rk) Scheduled Referrals Name Type Priority Associated Diagnoses Order [facility] Outpatient Routine Hyperlipidemia Exp ected: office visit (clinic) Referral 2017 (Approximate), Expires: 07/13/2022 documented as of this encounter Results (ABNORMAL) Lipid Panel (08/03/2017 9:11 AM CDT) P athologist Signature Cholesterol, 258 (H) mg/dL 08/03/2017 [facility] Total 9:56 AM CDT [facility] LAB Comment: ----REFERENCE VALUE---- Desirable: < 200 Borderline high: 200 - 239 High: > or = 240 Triglycerides 149 mg/dL 08/03/2017 9:56 AM CDT [facility] LAB Comment: ----REFERENCE VALUE---- Normal: <150 Borderline high: 150-199 High: 200-499 Very high: > or =500 Cholesterol, HDL, S 62 >=50 mg/dL 08/03/2017 9:56 AM CDT [facility] Calculated LDL 166 (H) mg/dL 08/03/2017 9:56 AM CDT [facility] Comment: ----REFERENCE VALUE---- Desirable: <100 Above Desirable: 100-129 Borderline high: 130-159 High: 160-189 Very high: > or =190 Cholesterol, Non-HDL, 196 (H) mg/dL 08/03/2017 9:56 AM CDT [facility] LAB Comment: ----REFERENCE VALUE---- Desirable: <130 Above Desirable: 130-159 Borderline high: 160-189 High: 190-219 Very high: > or =220 Specimen Anatomical Collection Method Collection Time Receive d Time (Source) Location / / Volume Laterality Blood 08/03/2017 9:11 AM 8 9:12 CDT AM CDT Erik Hayes M.D. LAB BLOOD ADD-ON Performing Organization Address City/State/ZIP Code Phon e Number [facility] [id number] [address] [place] [facility] (ABNORMAL) BMP (Basic Metabolic Panel) (08/03/2017 9:11 AM [facility]) Analysis [facility] Time Signature Potassium, S 3.9 3.6 - 5.2 08/03/2017 [facility] mmol/L 9:56 AM [facility] Sodium, S 143 135 - 145 08/03/2017 [facility] mmol/L 9:56 AM [facility] Chloride, S 106 98 - 107 08/03/2017 [facility] mmol/L 9:56 AM [facility] Bicarbonate, S 25 22 - 29 08/03/2017 [facility] mmol/L 9:56 AM [facility] Anion Gap 12 7 - 15 08/03/2017 [facility] 9:56 AM [facility] BUN (Blood Urea 27 (H) 6 - 21 08/03/2017 [facility] Nitrogen), S mg/dL 9:56 AM [facility] Creatinine 1.27 (H) 0.59 - 08/03/2017 [facility] 1.04 mg/dL 9:56 AM [facility] eGFR-Non 42 (L) >=60 08/03/2017 [facility] Black/ mL/min/BSA 9:56 AM [facility] LAB Comment: ----ADDITIONAL INFORMATION---- Estimated GFR calculated using the 2009 CKD_EPI creatinine equation. eGFR-Black/ 49 (L) >=60 mL/min/BSA 08/03/2017 9:56 AM [facility] LAB Comment: ----ADDITIONAL INFORMATION---- Estimated GFR calculated using the 2009 CKD_EPI creatinine equation. Calcium, Total, S 9.8 8.8 - 10.2 mg/dL 08/03/2017 9 :56 AM [facility] Glucose, S 140 70 - 140 mg/dL 08/03/2017 9:56 AM [facility] LAB Specimen Anatomical Collection Method Collection Time Receive d Time (Source) Location / / Volume Laterality Blood 08/03/2017 9:11 AM 8 9:12 CDT AM CDT Erik Hayes M.D. LAB BLOOD ADD-ON Performing Organization Address City/State/ZIP Code Phon e Number [facility] [id number] [address] [place] [facility] documented in this encounter Visit Diagnoses Diagnosis Hyperlipidemia Diabetes Mellitus Type 2 Without Complic ation (HCC) documented in this encounter Additional Health Concerns Assessment Noted Time PHQ-9 Depression Total Score: 7 06/21/2014 9:20 AM CDT documented as of this encounter
--- OUTSIDE RECORDS SUMMARY | 2022-01-21 13:49 | XMS_ITS | Encounter Summary ---
:1945 Author Organization [facility] Address [address] [place] [address] Care Team Providers Name Role Phone Unavailable Primary Care Provider Unavailable Encounter Details Date Type Department Care Team Description 09/03/2016 Hospital Encounter HX [facility] Mahesh Caal M.D., Ph.D. [address] [place] [phone] (Wo rk) Social History Tobacco Use Types [...] Office Visit Cardiovascular Disease Maritza Currie M.D. [address] [place] [phone] (Wo rk) documented as of this encounter Visit Diagnoses Not on filedocumented in this encounter Additional Health Concerns Assessment Noted Time PHQ-9 Depression Total Score: 7 06/21/2014 9:20 AM CDT documented as of this encounter
--- OUTSIDE RECORDS SUMMARY | 2022-01-21 13:49 | XMS_ITS | Encounter Summary ---
:1945 Author Organization [facility] Address [address] [place] [address] Care Team Providers Name Role Phone Unavailable Primary Care Provider Unavailable Encounter Details Date Type Department Care Team Description 05/07/2018 Clinical Support Department of Ai Patel C.NJairoPJairo [address] [place] [address] Vert[facility] Rehabilitation Luciana Ferguson, P.T. [address] [place] [phone] Paroxysmal Services in [address] [phone] Social History Tobacco Use Types Packs/Day Years [...] of motion is within normal limits. [place] testing was positive for left posterior canal [...] Cardiovascular Disease Maritza Currie M.D. [address] [place], [place] [phone] (Wo rk) documented as of this encounter Visit Diagnoses Diagnosis Vertigo Benign Paroxysmal Positional Rig ht documented in this encounter Additional Health Concerns Assessment Noted Time PHQ-9 Depression Total Score: 7 06/21/2014 9:20 AM CDT documented as of this encounter
--- OUTSIDE RECORDS SUMMARY | 2022-01-21 13:49 | XMS_ITS | Encounter Summary ---
:1945 Author Organization [facility] Address [address] [place] [address] Care Team Providers Name Role Phone Unavailable Primary Care Provider Unavailable Encounter Details Date Type Department Care Team Description 06/29/2018 Hospital Encounter Department of Adriane Patel, Mass Inguinal Radiology in [address] [address] [place], [place] [phone] (W ork) [address] [phone] Social History Tobacco Use Types Packs/Day Years [...] health. ergocalciferol (DRISDOL) Take 50,000 Units 0 01/13/2022 [...] Cardiovascular Disease Maritza Currie M.D. [address] [place] [address] [phone] (Wo rk) documented as of this [...] epidermal inclusion cyst or sebaceous cyst. Adriane Patel C.N.P. IMSerg US PROCEDURES documented in this encounter Visit Diagnoses Diagnosis Mass Inguinal documented in this encounter Additional Health Concerns Assessment Noted Time PHQ-9 Depression Total Score: 7 06/21/2014 9:20 AM CDT documented as of this encounter
--- OUTSIDE RECORDS SUMMARY | 2022-01-21 13:49 | XMS_ITS | Encounter Summary ---
:1945 Author Organization [facility] Address [address] [place] [address] Care Team Providers Name Role Phone Unavailable Primary Care Provider Unavailable Encounter Details Date Type Department Care Team Description 07/29/2016 Hospital Encounter H[facility] Jayne Varela, C.N.P. [address] [place] [address] [phone] (Wo rk) Social History Tobacco [...] call her primary provider- Suresh Patel at [place]- and update her. Encouraged to call back if she has any other concerns. Stated that she would. Electronically Signed By: ANDREA MALHOTRA RN On: 08/07/2016 10:48 AM Modified by and Electronically Signed by: ANDREA MALHOTRA RN On: 08/07/2016 10:48 AM Source: [facility] Document Id: [id number] documented in this encounter Miscellaneous Notes Miscellaneous - Conversion, Historical Provider Ser - 07/29/2016 11:59 PM CDT Coding Summary-Paper Based CODING DATE: 08/01/2016 FINAL [facility] STATUS: * Discharged to Home [...] WARD Date Saved: 08/01/2016 10:18 am Source: [facility] Document Id: [id number] documented in this encounter Plan of Treatment Upcoming Encounters Date Type Specialty Care Team Description 01/22/2022 Office Visit Cardiovascular Disease Maritza Currie M.D. [address] [place] [address] [place] [phone] (Wo rk) documented as of this encounter Visit Diagnoses Not on filedocumented in this encounter Additional Health Concerns Assessment Noted Time PHQ-9 Depression Total Score: 7 06/21/2014 9:20 AM CDT documented as of this encounter
--- OUTSIDE RECORDS SUMMARY | 2022-01-21 13:49 | XMS_ITS | Encounter Summary ---
:1945 Author Organization [facility] Address [address] [place] [address] Care Team Providers Name Role Phone Unavailable Primary Care Provider Unavailable Encounter Details Date Type Department Care Team Description 01/31/2015 - Hospital Encounter HX [facility] Nery belle, 09/21/2015 AURELIANO Belle M.D. [address] [phone] Social History Tobacco Use Types [...] Gail Cortez M.D. - 04/27/2015 3:05 PM ATTIC FANS MECHANIC needs appt Document Contains Addenda Addendum by NYA WILSON LPN on April 30, 2015 10:39:19 CDT paperwork is on Dr. Gabriel desk- Addendum by GAIL VILLAR MD on April 30, 2015 07:07:05 CDT From: GAIL VILLAR MD To: [facility] Nurse F[place]ardo; Sent: 04/30/2015 07:07:05 CDT Subject: RE: needs appt Yes- that is fine. Gail Cm Addendum by JULIO PÉREZ on April 27, 2015 16:48:34 ATTIC FANS MECHANIC From: JULIO PÉREZ ([facility] Medicine Nurse Fajardo) To: GAIL VILLAR MD; Sent: 04/27/2015 16:48:34 ATTIC FANS MECHANIC Subject: FW: needs appt Client has an appointment in early May and would like to do it then. Can we keep the paperwork here until then? Jennifer Cm From: GAIL VILLAR MD To: [facility] Medicine Nurse Fajardo; Sent: 04/27/2015 15:05:09 ATTIC FANS MECHANIC Subject: needs appt Please let patient know that I have received the paperwork for the diabetic shoes, but for insuranceto pay for them we need to update her foot exam. Could she please make an appt to do this? 15min would be okay unless patient has other things to discuss. Gail Cm Source: [facility] POWERCHART Document Id: [id number] Miscellaneous - Nya Wilson, L.P.N. - 02/26/2015 1:12 PM CST Accu-Chek Monitor Document Contains Addenda Addendum by ERNESTO CRUM LPN on 26 February 2015 16:17:25 ATTIC FANS MECHANIC left message orders filled Addendum by GAIL VILLAR MD on 26 February 2015 14:11:03 ATTIC FANS MECHANIC From: GAIL VILLAR MD To: [facility] Nurse [place]; Sent: 02/26/2015 14:11:03 ATTIC FANS MECHANIC Subject: RE: Accu-Chek Monitor Sent to [facility]. Thanks, Gail From: NYA WILSON LPN ([facility] Medicine Nurse Scotty) To: GAIL VILLAR MD; Sent: 02/26/2015 13:12:37 ATTIC FANS MECHANIC Subject: Accu-Chek Monitor Pt called and states her Accu Check Monitor quit working. She needs a new RX for it and sent [facility]. She also needs the strips. She tests 1x daily and sometimes 2-3 times depending. Please giveher refills if possible. I could not propose this for you. Source: [facility] Document Id: [id number] Electronically signed by Conversion, [facility] [employer] Financials Developer [id number] at 07/14/2016 9:28 AM CDT Miscellaneous - Conversion, Historical Provider Ser - 02/07/2015 11:40 AM ATTIC FANS MECHANIC Coding Summary-Paper Based CODING DATE: 02/07/2015 FINAL [facility] STATUS: Still Patient/Expected to Rtn Oupt [facility] PAYOR: Medicare ADMIT DX: REASON FOR VISIT DX: FINAL DX: PRINCIPAL: Z95.5 Presence of coronary angioplasty implant and graft SECONDARY: I25.10 Atherosclerotic heart disease of [place] coronary artery without angina pectoris R00.2 Palpitations E11.9 Type 2 diabetes mellitus without complications PROCEDURES DOCTOR NAME DATE NOTE: The code number assigned matches the documented diagnosis and / or procedure in the patient's chart. However, the narrative phrase printed from the coding software may appear abbreviated, or result in slightly different terminology. Coded By: SANDRA LARA Date Saved: 02/07/2015 11:40 am Source: [facility] Document Id: [id number] documented in this encounter Plan of Treatment Upcoming Encounters Date Type Specialty Care Team Description 01/22/2022 Office Visit Cardiovascular Disease Maritza Currie M.D. [address] [place] [address] [phone] (Wo rk) documented as of this encounter Visit Diagnoses Not on filedocumented in this encounter Additional Health Concerns Assessment Noted Time PHQ-9 Depression Total Score: 7 06/21/2014 9:20 AM CDT documented as of this encounter
--- OUTSIDE RECORDS SUMMARY | 2022-01-21 13:49 | XMS_ITS | Encounter Summary ---
:1945 Author Organization [facility] Address [address] [place] [address] Care Team Providers Name Role Phone Unavailable Primary Care Provider Unavailable Encounter Details Date Type Department Care Team Description 09/01/2016 Hospital Encounter HX [facility] CARDIOLOG Mahesh Bates M.D., Ph.D. [address] [place] [address] (Wo rk) Social History Tobacco Use Types [...] M.D., Ph.D. - 09/01/2016 10:56 AM CDT [facility] REFERRAL SOURCE Suresh Patel. I have [...] statin given her diabetes and coronary disease. oMhan Bates M.D./gene Electronically Signed By: MOHAN BATES MD On: 09/22/2016 04:01 PM Source: [facility] MHSDOLBEYNONRADSYS Document Id: [id number] documented in this encounter Nursing Notes Andrea Malhotra R.N. - 09/11/2016 1:54 PM CDT cardiology Copy of overnight oximetry and holter monitor were given to Kenia jurado [facility] to be sent to [facility] in [place]. Electronically Signed By: ANDREA MALHOTRA RN On: 09/11/2016 01:55 PM Modified by and Electronically Signed by: ANDREA MALHOTRA RN On: 09/11/2016 01:55 PM Source: [facility] [employer] Document Id: [id number] Andrea Malhotra R.N. - 09/02/2016 9:52 AM CDT cardiology notes Copy of Dr. Bates's cardiology note of yesterday was given to Kenia jurado [facility] to be sent to Suresh Patel at [facility]. Electronically Signed By: ANDREA MALHOTRA RN On: 09/02/2016 09:53 AM Modified by and Electronically Signed by: ANDREA MALHOTRA RN On: 09/02/2016 09:53 AM Source: [email or web address] Document Id: [id number] documented in this encounter Miscellaneous Notes Miscellaneous - Andrea Malhotra R.N. - 09/11/2016 1:52 PM CDT *General Message From: ANDREA MALHOTRA RN To: ANDREA MALHOTRA RN; Sent: 09/11/2016 13:52:21 CDT Subject: *General Message Lázaro Bates, the overnight oximetry and holter monitor are available for you to review on Marcial Adams. Toi Adams Source: [email or web address] Document Id: [id number] Electronically signed by Conversion, [employer] Gas Operations Analyst [id number] at 09/17/2016 12:34 AM CDT Miscellaneous - Andrea Malhotra R.N. - 09/02/2016 10:00 AM CDT *General Message From: ANDREA MALHOTRA RN To: OCTAVIA BERGERON; Sent: 09/02/2016 10:00:46 CDT Subject: *General Message Dr. Ten Portillo ordered an overnight oximetry for Marcial. Toi Adams Source: [email or web address] Document Id: [id number] Electronically signed by Conversion, [facility] Gas Operations Analyst [id number] at 09/03/2016 7:04 AM CDT Miscellaneous - Andrea Malhotra R.N. 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D. [address] [place] [address] [phone] (Wo rk) documented as of this encounter Visit Diagnoses Not on filedocumented in this encounter Additional Health Concerns Assessment Noted Time PHQ-9 Depression Total Score: 7 06/21/2014 9:20 AM CDT documented as of this encounter
--- OUTSIDE RECORDS SUMMARY | 2022-01-21 13:49 | XMS_ITS | Encounter Summary ---
:1945 Author Organization [facility] Address [address] [place] [address] Care Team Providers Name Role Phone Unavailable Primary Care Provider Unavailable Reason for Referral Outpatient (Routine) - Closed Specialty Diagnoses / Procedures Referred By Contact Refer red To Contact Cardiovascular Disease Vignesh Currie [facility] [place] [facility] M.D. [address] [place] [address] Referral ID Status Reason Start Date Expiration Date Visits Requ ested Visits Authorized [id number] Closed 04/26/2018 04/26/2019 1 1 Reason for Visit Reason Comments Follow-up [place] patient. Shortness of Breath Outpatient (Routine) - Closed Specialty Diagnoses / Procedures Referred By Contact Refer red To Contact Cardiovascular Disease MARIA DEL ROSARIO Escamilla SE [address] Phoebe Jean-Baptiste M.D. [address] [place] [address] Referral ID Status Reason Start Date Expiration Date Visits Requ ested Visits Authorized [id number] Closed 08/03/2017 08/03/2018 1 1 Encounter Details Date Type Department Care Team Description 04/26/2018 Office Visit Department of Vignesh Currie Coronary Ar wilbert Disease [place] Vessel (Primary Dx); Cardiovascular Diseases Lee Lance Diabetes Mellitus Type 2 (HCC); in [place], [address] [place] [address] [address] [place], [place] [phone] (Work) [phone] Social History Tobacco Use Types Packs/Day Years [...] Marcial is a pleasant 72-year-old female from [place], [place]. She has previously followed with my [...] me she underwent a Neurology workup at [facility] and was given a diagnosis [...] in consultation, greater than 50% in direct eyhb-hj-sljz counseling. CT CT Job ID: [id number] documented in this encounter Plan of Treatment Upcoming Encounters Date Type Specialty Care Team Description 01/22/2022 Office Visit Cardiovascular Disease Maritza Currie M.D. [address] [place], [place] [phone] (Wo rk) Scheduled Referrals [...] Code Phon e Number [facility]- [address] [place] [address] [place] [address] [facility] documented in this encounter Visit Diagnoses Diagnosis Coronary Artery Disease [place] Vessel - Primary Diabetes Mellitus Type 2 (HCC) Vertigo documented in this encounter Additional Health Concerns Assessment Noted Time PHQ-9 Depression Total Score: 7 06/21/2014 9:20 AM CDT documented as of this encounter
--- OUTSIDE RECORDS SUMMARY | 2022-01-21 13:49 | XMS_ITS | Encounter Summary ---
:1945 Author Organization [facility] Address [address] [place] [address] Care Team Providers Name Role Phone Unavailable Primary Care Provider Unavailable Encounter Details Date Type Department Care Team Description 07/07/2016 Hospital Encounter HX [facility] CARDIOLOG Erik Macario M.D. [address] [place], [place] [address] (Wo rk) Social History [...] CDT [facility] REFERRAL S[facility] Adriane Patel APRN, VICE PRESIDENT SALES, [facility] CHIEF COMPLAINT/REASON FOR VISIT Follow up [...] The most recent laboratory values obtained from [facility] dated June 26, 2016, are her uric acid which is elevated at 7.6, and a C-reactive protein which was elevated at 12. The reason for that elevation is a recent episode of gout that has been appropriately treated. Her ESR was also elevated at 64. I did review 12-lead ECG from our colleagues at [facility], which shows normal sinus rhythm, no [...] GAN MD On: 08/03/2016 02:58 PM Source: [facility] MHSDOLBEYNONRADSYS Document Id: [id number] documented in this encounter Miscellaneous Notes Miscellaneous - Annie Jones, R.N. - 07/07/2016 1:39 PM CDT Adult Occupational Therapy Manager Intake/History Document Has Been Updated Adult Occupational Therapy Manager Intake/History Entered On: 07/07/2016 13:43 CDT Performed On: 07/07/2016 13:39 CDT by ANNIE JONES casino cashier manager Peripheral Pulse Rate : 78 /min Heart [...] Information Given By : Patient Languages : Kazakh Is Patient Female and [...] JONES RN - 07/07/2016 13:39 CDT Source: [facility] [employer] Document Id: [id number] CDT!44 documented in this encounter Plan of Treatment Upcoming Encounters Date Type Specialty Care Team Description 01/22/2022 Office Visit Cardiovascular Disease Maritza Currie M.D. [address] [place] [address] [phone] (Wo rk) documented as of this encounter Visit Diagnoses Not on filedocumented in this encounter Additional Health Concerns Assessment Noted Time PHQ-9 Depression Total Score: 7 06/21/2014 9:20 AM CDT documented as of this encounter
--- OUTSIDE RECORDS SUMMARY | 2022-01-21 13:49 | XMS_ITS | Encounter Summary ---
:1945 Author Organization [facility] Address [address] [place] [address] Care Team Providers Name Role Phone Unavailable Primary Care Provider Unavailable Encounter Details Date Type Department Care Team Description 02/26/2018 Comprehensive Visit Department of Elizabeth Patel C.N.P. [address] [place] [address] Vertigo Benign Paroxysmal Positional Rig ht; Rehabilitation Rogers Alva P.T. [address] [place] [phone] Coronary Artery Disease Telida Vessel; Services in [place] Diabetes Mellitus Type 2 (HCC); [place], [place] [address] [phone] Social History Tobacco Use Types Packs/Day Years [...] min Functional G-code Worksheet Rogers Alva P.T. HITE PAN DRIER TENDER documented in this encounter Miscellaneous Notes Addendum Note - Rogers Alva P.T. - 02/26/2018 11:00 AM GRAPHITE PAN DRIER TENDER Addended by: ROGERS ALVA on: 03/09/2018 09:39 AM Modules accepted: Orders HITE PAN DRIER TENDER documented in this encounter Plan of Treatment Upcoming Encounters Date Type Specialty Care Team Description 01/22/2022 Office Visit Cardiovascular Disease Maritza Currie M.D. [address] [place] [address] [phone] (Wo rk) documented as of this encounter Visit Diagnoses Diagnosis Vertigo Benign Paroxysmal Positional Rig ht Coronary Artery Disease Telida Vessel Diabetes Mellitus Type 2 (HCC) Vertigo documented in this encounter Additional Health Concerns Assessment Noted Time PHQ-9 Depression Total Score: 7 06/21/2014 9:20 AM CDT documented as of this encounter
--- OUTSIDE RECORDS SUMMARY | 2022-01-21 13:49 | XMS_ITS | Encounter Summary ---
:1945 Author Organization [facility] Address [address] [place] [address] Care Team Providers Name Role Phone Unavailable Primary Care Provider Unavailable Reason for Visit Reason Onset Date Comments Communication 12/10/2017 colonoscopy and egd needed Encounter Details Date Type Department Care Team Description 12/10/2017 Clinical Department of Magdalena Patel Communicatio n Communication Neurology in [place] (colonoscopy and egd [place] [address] Dc needed) [address] [place] [phone] Social History Tobacco Use Types Packs/Day Years [...] prep. Then we can schedule procedure EGD/Colonoscopy. 18sla. Telephone Encounter - Magdalena Patel R.N. - 12/14/2017 10:31 AM CDT Please assist with scheduling appointments Telephone Encounter - Pradeep Noel M.D. - 12/14/2017 9:00 AM CDT Ordered! Split-dose GoLYTELY prep, because of her diabetes. Thanks. Alejandro Telephone Encounter - Magdalena Patel R.N. - 12/10/2017 2:19 PM CDT Fax from [place] in [place] , phone [phone], fax [phone] requesting EGD and colonoscopy. Dx listed is [...] Cardiovascular Disease Maritza Currie M.D. [address] [place], [place] [phone] (Wo rk) documented as of this encounter Visit Diagnoses Diagnosis Diarrhea - Primary Anemia documented in this encounter Additional Health Concerns Assessment Noted Time PHQ-9 Depression Total Score: 7 06/21/2014 9:20 AM CDT documented as of this encounter
--- OUTSIDE RECORDS SUMMARY | 2022-01-21 13:49 | XMS_ITS | Encounter Summary ---
:1945 Author Organization [facility] Address [address] [place] [address] Care Team Providers Name Role Phone Unavailable Primary Care Provider Unavailable Encounter Details Date Type Department Care Team Description 04/22/2017 Hospital Encounter Department of Radiology Yady Vazquez, [place] 1705 Counts Include 234 Beds At [facility] [address] [place] [phone] Social History Tobacco Use Types Packs/Day Years [...] Cardiovascular Disease Maritza Currie M.D. [address] [place] [address] [phone] (Wo rk) documented as of this encounter Procedures Procedure Name Priority Date/Time Associated Comments Diagnosis CT NECK SOFT RAD - Routine 04/22/2017 2:57 Mass Neck Results for this TISSUE WITH IV (most inpatients PM ASSEMBLER CRIMPER procedure are in CONTRAST and all the results outpatients) section. documented in this encounter Results CT Neck Soft Tissue with IV Contrast (04/22/2017 2:57 PM ASSEMBLER CRIMPER) Anatomical Region Laterality Modality Neck N/A Computed Tomography Specimen (Source) Anatomical Collection Method Collection Time Re ceived Time Location / / Volume Laterality 04/22/2017 3:21 PM ASSEMBLER CRIMPER Impressions 04/22/2017 3:27 PM ASSEMBLER CRIMPER IMPRESSION: 1. ??No evidence of focal mass [...] pathologic bone lesions. Narrative 04/22/2017 3:27 PM ASSEMBLER CRIMPER EXAM: CT NECK SOFT TISSUE WITH IV [...] mg iodine/mL solution Given 04/22/2017 2:12 PM ASSEMBLER CRIMPER 1 30 mL 130 mL (for_OMNIPAQUE) 130 mL, intravenous, Once in imaging, contrast, Starting on Thu04/22/17 at 1405, For 1 dose sodium chloride injection 10 mL Given 04/22/2017 2:58 PM ASSEMBLER CRIMPER 10 mL 10 mL, intravenous, As needed, line care, Starting on Thu04/22/17 at 1405 sodium chloride injection 10 mL Given 04/22/2017 2:58 PM ASSEMBLER CRIMPER 10 mL 10 mL, intravenous, As needed, line care, Starting on Thu04/22/17 at 1405 documented in this encounter Additional Health Concerns Assessment Noted Time PHQ-9 Depression Total Score: 7 06/21/2014 9:20 AM CDT documented as of this encounter
--- OUTSIDE RECORDS SUMMARY | 2022-01-21 13:49 | XMS_ITS | Encounter Summary ---
:1945 Author Organization [facility] Address [address] [place] [address] Care Team Providers Name Role Phone Unavailable Primary Care Provider Unavailable Reason for Visit Physical Therapy (Routine) - Closed Specialty Diagnoses / Procedures Referred By Contact Refer red To Contact Diagnoses Vertigo Jakob-Shahana Patel [facility] Procedures PT Evaluate and treat B, D.OJairo [address] [address] Referral ID Status Reason Start Date Expiration Date Visits Requ ested Visits Authorized [id number] Closed 01/06/2017 07/05/2017 12 12 Encounter Details Date Type Department Care Team Description 01/07/2017 Comprehensive Visit Department of Jakob-Shahana Mak B, D.OJairo [address] [address] [facility] Carley Yost, P.T. [address] [place] [phone] [phone] Social History Tobacco Use Types Packs/Day Years [...] with smooth pursuit, saccades or VOR testing. [place]: Symptomatic with immediate latency and duration [...] or restricted Physician Signature: Date Print Name: RINATOR OPERATOR documented in this encounter Plan of Treatment Upcoming Encounters Date Type Specialty Care Team Description 01/22/2022 Office Visit Cardiovascular Disease Maritza Currie M.D. [address] [place] [address] [phone] (Wo rk) documented as of this encounter Visit Diagnoses Diagnosis Vertigo documented in this encounter Additional Health Concerns Assessment Noted Time PHQ-9 Depression Total Score: 7 06/21/2014 9:20 AM CDT documented as of this encounter
--- OUTSIDE RECORDS SUMMARY | 2022-01-21 13:49 | XMS_ITS | Encounter Summary ---
:1945 Author Organization [facility] Address [address] [place] [address] Care Team Providers Name Role Phone Unavailable Primary Care Provider Unavailable Encounter Details Date Type Department Care Team Description 01/12/2017 Clinical Support Department of [facility]-Shahana Alcala D.O. [address] [address] [facility] in Carley Yost P.TJairo [address] [place] [phone] [phone] Social History Tobacco Use [...] Comments Blood Pressure 140/63 01/12/2017 1:56 PM LAND MOBILE RADIO TECHNICIAN Pulse - - Temperature - - Respiratory [...] Time (min): 29 min Functional G-code Worksheet MOBILE RADIO TECHNICIAN documented in this encounter Plan of Treatment Upcoming Encounters Date Type Specialty Care Team Description 01/22/2022 Office Visit Cardiovascular Disease Maritza Currie M.D. [address] [place] [address] [phone] (Wo rk) documented as of this encounter Visit Diagnoses Diagnosis Vertigo documented in this encounter Additional Health Concerns Assessment Noted Time PHQ-9 Depression Total Score: 7 06/21/2014 9:20 AM CDT documented as of this encounter
--- OUTSIDE RECORDS SUMMARY | 2022-01-21 13:49 | XMS_ITS | Encounter Summary ---
:1945 Author Organization [facility] Address [address] [place] [address] Care Team Providers Name Role Phone Unavailable Primary Care Provider Unavailable Encounter Details Date Type Department Care Team Description 03/30/2017 Comprehensive Visit Department of Elizabeth Patel C.N.P. [address] [place] [phone] Vertigo Benign Rehabilitation Luciana Ferguson P.T. [address] [place] [phone] Positional Services in [address] [phone] Social History Tobacco Use Types Packs/Day Years [...] Patient will contact therapist if symptoms return. ER documented in this encounter Consult Notes Luciana [...] to perform Hallpike Karan testing. Performed Hallpike Pelkie testing without symptom reproduction. There is no [...] be achieved in 2 weeks. Provider signature ER documented in this encounter Plan of Treatment Upcoming Encounters Date Type Specialty Care Team Description 01/22/2022 Office Visit Cardiovascular Disease Maritza Currie M.D. [address] [place] [phone] (Wo rk) documented as of this encounter Visit Diagnoses Diagnosis Vertigo Benign Positional Bilateral documented in this encounter Additional Health Concerns Assessment Noted Time PHQ-9 Depression Total Score: 7 06/21/2014 9:20 AM CDT documented as of this encounter
--- OUTSIDE RECORDS SUMMARY | 2022-01-21 13:49 | XMS_ITS | Encounter Summary ---
:1945 Author Organization [facility] Address [address] [place] [address] Care Team Providers Name Role Phone Unavailable Primary Care Provider Unavailable Encounter Details Date Type Department Care Team Description 09/02/2016 Hospital Encounter [facility]X [facility] Mohan Germain M.D., Ph.D. [address] [place], [place] [phone] (Wo rk) Social History [...] Summary-Paper Based CODING DATE: 09/08/2016 FINAL [place] [facility] STATUS: * Discharged to Home or Self Care PAYOR: Medicare ADMIT DX: REASON FOR VISIT DX: FINAL DX: PRINCIPAL: R42 Dizziness and giddiness SECONDARY: I25.10 Atherosclerotic heart disease of jackson coronary artery without angina pectoris R06.02 Shortness of breath PROCEDURES DOCTOR NAME DATE NOTE: The code number assigned matches the documented diagnosis and / or procedure in the patient's chart. However, the narrative phrase printed from the coding software may appear abbreviated, or result in slightly different terminology. Coded By: SERGIO COTTO Date Saved: 09/08/2016 06:04 pm [facility] Document Id: [id number] documented in this encounter Plan of Treatment Upcoming Encounters Date Type Specialty Care Team Description 01/22/2022 Office Visit Cardiovascular Disease Maritza Currie M.D. [address] [place], [place] [phone] (Wo rk) documented as of this encounter Visit Diagnoses Not on filedocumented in this encounter Additional Health Concerns Assessment Noted Time PHQ-9 Depression Total Score: 7 06/21/2014 9:20 AM CDT documented as of this encounter
--- OUTSIDE RECORDS SUMMARY | 2022-01-21 13:49 | XMS_ITS | Encounter Summary ---
:1945 Author Organization [facility] Address [address] [place] [address] Care Team Providers Name Role Phone Unavailable Primary Care Provider Unavailable Encounter Details Date Type Department Care Team Description [facility]/10/2015 [facility] [address] [place] [phone] (Wo rk) Social History Tobacco Use [...] VISIT Pre op for cataract surgery in [place] Left eye 12/19/15, right eye 01/09/16 flu shot compare glucose reading with home meter HISTORY OF PRESENT ILLNESS Marcial presents for a preop exam prior to undergoing cataract surgery in [place] on 12/18 and 01/08. She has never [...] Anxiety disorder NOS Coronary Artery Disease (CAD) [place] Vessel Hyperlipidemia/Dyslipidemia Hypothyroidism NOS NIDDM [non-insulin dependent [...] Ordered: OV Est Pt Level 4 - 20403 - 25 min 2. DM2 Meter is running a little high compared to ours. Discussed with patient that when she checks her blood sugar, she can subtract around 50 points to determine what her sugar really is. We are going to continue the same meds at this time. Ordered: OV Est Pt Level 4 - 39949 - 25 min FOOTNOTES [1]Clinic Full Note; NE VILLAR MD 07/24/2014 14:02 CDT Electronically Signed By: NE VILLAR MD On: 12/12/2015 02:20 PM Source: FirstString Document Id: [id number] documented in this encounter Miscellaneous Notes Miscellaneous - Conversion, Historical Provider Ser - 03/07/2016 4:08 PM OUTDOOR GUIDE *General Message From: COLT VIGIL To: [place] Colonoscopy Pool; Sent: 03/07/2016 16:08:37 OUTDOOR GUIDE Subject: *General Message Please check patient Source: FirstString Document Id: [id number] Miscellaneous - Belen Lovelace - 03/06/2016 11:38 AM CST Custom Result Letter March 06, 2016 MARCIAL BAZAN [address] [place] [phone] Dear MARCIAL BAZAN, [facility] would like to better assist you with [...] 2016 This document has images extracted. Source: [facility] PublicVine Document Id: [id number] Miscellaneous - Cliff Rodriguez R.N. - 02/26/2016 3:34 PM CST *General Message From: CLIFF RODRIGUEZ RN ([place] Colonoscopy Pool) To: [place] Colonoscopy Pool; Sent: 02/26/2016 15:34:45 OUTDOOR GUIDE Subject: *General Message Due Date/Time: 01/03/2019 15:34:00 OUTDOOR GUIDE due 01/03/2019 Source: [facility] Document Id: [id number] Electronically signed by Conversion, [facility] Roof Fixer [id number] at 07/13/2016 11:08 AM CDT Dio - Octavia Diaz - 12/13/2015 8:14 [...] can send that to insurance. Thanks. Source: [facility] POWERCHART Document Id: [id number] Electronically signed by Sae, [facility] Roof Fixer [id number] at 07/13/2016 11:08 AM CDT Miscellaneous - Ne Cortez M.D. - 12/10/2015 11:05 AM CDT Ambulatory Patient Summary [address] [phone] Visit Information Name: MARCIAL BAZAN [facility] Number: [id number] Current Date: 12/10/2015 11:05:02 Physicians [...] day as needed forRash New Routed to [address] [address] clopidogrel (Plavix 75 mg oral [...] as needed for Rash New Routed to [address] [address] Stop Taking the Following Medications: [...] Stress Test Active Coronary Artery Disease (CAD) [place] Vessel Active Your Upcoming Appointments Date Time [...] if you dont have one. Go to [email or web address] and click on Create Your Account. Then, follow the directions to complete the online form. Youll be asked for your [facility] number which you can find at the top of this document. Your Goals/Additional instructions: Source: [facility] POWERCHART Document Id: [id number] Miscellaneous - Ne Cortez M.D. - 12/10/2015 11:05 AM CDT Ambulatory Discharge Medication List [address] [place] [phone] Visit Information Name: MARCIAL BAZAN [facility] Number: [id number] Current Date: 12/10/2015 11:05:00 Attending [...] Topical, two times a day as needed Lizbeth Posey Routed to [address] [address] clopidogrel (Plavix 75 mg oral [...] as needed for Rash New Routed to [address] [address] Stop Taking the Following Medications: Medication list [...] MD Signed On:10-DEC-2015 11:00:45 Additional Information: Source: [facility] Everyware GlobalCHART Document Id: [id number] Dio - Azra Blandon, L.P.N. - 12/10/2015 10:26 AM CDT *General Message From: AZRA BLANDON LPN ([place] Family Medicine Nurse Scotty) To: NE VILLAR [...] new glucometer be sent to pharmacy. Source: [facility] POWERCHART Document Id: [id number] Electronically signed by Sae [facility] Roof Fixer [id number] at 07/13/2016 11:08 AM CDT Azra Badillo, [...] BLANDON LPN - 12/10/2015 10:06 CDT Source: FirstString Document Id: [id number] CDT!12 Miscellaneous - Azra Blandon, L.P.N. - 12/10/2015 10:01 AM CDT Adult Jewel Blocker And Sawyer Intake/History Adult Jewel Blocker And Sawyer Intake/History Entered On: 12/10/2015 10:05 CDT Performed On: 12/10/2015 10:01 CDT by AZRA BLANDON LPN Intake Chief Complaint : Pre op for cataract surgery in [place] Left eye 12/19/15, right eye 01/09/16 flu [...] Information Given By : Patient Languages : Icelandic Is Patient Female and 13-50 no hysterectomy [...] BLANDON LPN - 12/10/2015 10:01 CDT Source: FirstString Document Id: [id number] CDT!44 Miscellaneous - Azra Blandon, L.P.N. - [...] No Alcohol Use : No AZRA BLANDON [facility] - 12/10/2015 9:58 CDT Caffeine Use Grid Caffeine Use : Past Type : Coffee Frequency : Occasionally Amount : 2 cup per week AZRA BLANDON [facility] - 12/10/2015 9:58 CDT Recreational Drug Use Grid Drug Use : None AZRA BLANDON [facility] - 12/10/2015 9:58 CDT Psychosocial Domestic Abuse Concerns : None Behavioral Health Screen/Safety Assmt : No Samaritan Preference : Spencer AZRA BLANDON [facility] - 12/10/2015 9:58 CDT Advance Directive Advanced Directives : No Advance Directive Additional Information : No AZRA BLANDON [facility] - 12/10/2015 9:58 CDT Educ Needs Learning Style Preference Adult Grid Patient : Demonstration, Printed materials, Verbal explanation, Video/Educational TV Family : None AZRA BLANDON [facility] 12/10/2015 9:58 CDT Source: [facility] PublicVine Document Id: [id number] CDT!36 documented in this encounter Plan of Treatment Upcoming Encounters Date Type Specialty Care Team Description 01/22/2022 Office Visit Cardiovascular Disease Maritza Currie M.D. [address] [place], [place] [phone] (Wo rk) documented as [...] 140 POWERCHART B MGDL Comment: Analyzed By [id number] Barber Oquendo Performed at [facility] [address] [facility] [address] [place], [place] ??[address] Specimen Anatomical Collection Method Collection Time Receive [...]
--- OUTSIDE RECORDS SUMMARY | 2022-01-21 13:50 | XMS_ITS | Encounter Summary ---
:1945 Author Organization [facility] Address [address] [place] [address] Care Team Providers Name Role Phone Unavailable Primary Care Provider Unavailable Encounter Details Date Type Department Care Team Description 02/05/2015 Hospital Encounter [facility] C[facility]IOLOG Mona Lemus M.D. [address] [place] [phone] (Wo rk) Social History Tobacco Use Types [...] Comments Blood Pressure 128/68 02/05/2015 2:12 PM PRESS HAND Pulse 74 02/05/2015 2:12 PM PRESS HAND Temperature - - Respiratory Rate - - Oxygen Saturation - - Inhaled Oxygen Concentration - - Weight 85.8 kg (189 lb 2.5 oz) 02/05/2015 2:12 PM PRESS HAND Height 158 cm (5' 2.21) 02/05/2015 2:12 PM PRESS HAND Body Mass Index 34.37 02/05/2015 2:12 PM PRESS HAND documented in this encounter Medications at Time [...] Lemus M.D. - 02/05/2015 1:50 PM CST [facility] PRIMARY CARE PROVIDER Gail Peguero MD. [...] LEMUS MD On: 03/19/2015 09:14 AM Source: [facility] MHSDOLBEYNONRADSYS Document Id: [id number] S HAND documented in this encounter Miscellaneous Notes Miscellaneous - Annie Jones, R.N. - 02/05/2015 2:12 PM CST Adult Senior Analyst Intake/History Document Has Been Updated Adult Senior Analyst Intake/History Entered On: 02/05/2015 14:14 PRESS HAND Performed On: 02/05/2015 14:12 PRESS HAND by ANNIE JONES director of sales Chief Complaint : Follow up Peripheral Pulse [...] kg/m2 ANNIE JONES RN - 02/05/2015 14:12 PRESS HAND General Info Languages : Algerian Is Patient Female and 13-50 no hysterectomy : No ANNIE JONES RN - 02/05/2015 14:12 PRESS HAND Subjective Pain Symptoms : No ANNIE JONES RN - 02/05/2015 14:12 PRESS HAND Dependent Habits Exposure to Tobacco Smoke : Care provider denies smoking in home, Other: never Smoking Status : Never smoker Tobacco 2A : No ANNIE JONES RN - 02/05/2015 14:12 PRESS HAND Caffeine Use Grid Caffeine Use : Past Type : Coffee, Soft drinks Frequency : Occasionally Amount : 1 cup per week ANNIE JONES RN - 02/05/2015 14:12 PRESS HAND Recreational Drug Use Grid Drug Use : None ANNIE JONES RN - 02/05/2015 14:12 PRESS HAND Allergy (As Of: 02/05/2015 14:15:01 PRESS HAND) Allergies (Active) azithromycin Estimated Onset Date: Unspecified ; Created By: PETRA RUSSELL LPN; Reaction Status: Active ; Category: Drug ; Substance: azithromycin ; Type: Allergy ; Updated By: PETRA RUSSELL LPN; Reviewed Date: 02/01/2015 12:40 PRESS HAND Benicar Estimated Onset Date: Unspecified ; Created By: PETRA RUSSELL LPN; Reaction Status: Active ; Category: Drug ; Substance: Benicar ; Type: Allergy ; Updated By: PETRA RUSSELL LPN; Reviewed Date: 02/01/2015 12:40 PRESS HAND Diabetes Intake Do You Have Diabetes : Yes How long have you had diabetes? : More than one year Do you take pills for your diabetes? : Yes Do you check your own blood sugars? : Yes Blood Sugar High : 195 Blood Sugar Low : 80 Have you had low sugar spells? : Yes ANNIE JONES RN - 02/05/2015 14:12 PRESS HAND Source: [facility] POWERCHART Document Id: [id number] PRESS HAND!39 S HAND documented in this encounter Plan of Treatment Upcoming Encounters Date Type Specialty Care Team Description 01/22/2022 Office Visit Cardiovascular Disease Maritza Currie M.D. [address] [place] [phone] (Wo rk) documented as of this encounter Visit Diagnoses Not on filedocumented in this encounter Additional Health Concerns Assessment Noted Time PHQ-9 Depression Total Score: 7 06/21/2014 9:20 AM CDT documented as of this encounter
--- OUTSIDE RECORDS SUMMARY | 2022-01-21 13:50 | XMS_ITS | Encounter Summary ---
:1945 Author Organization [facility] Address [address] [place] [address] Care Team Providers Name Role Phone Unavailable Primary Care Provider Unavailable Encounter Details Date Type Department Care Team Description 07/23/2015 Hospital Encounter [facility] CARD[facility]OLOG Mona Lemus M.D. [address] [place] [phone] (Wo rk) Social History Tobacco Use Types [...] does have an appointment with the o ptometrist/top steep tender coming up. MEDICATIONS Aspirin 81 mg a [...] LEMUS MD On: 03/18/2016 11:34 AM Source: [facility] MHSDOLBEYNONRADSYS Document Id: [id number] UMER LENDING MANAGER documented in this encounter Miscellaneous Notes Miscellaneous - Andrea Malhotra R.N. - 07/23/2015 12:59 PM CDT Adult Crusher Operator Intake/History Adult Crusher Operator Intake/History Entered On: 07/23/2015 13:03 CDT Performed On: 07/23/2015 12:59 CDT by ANDREA MALHOTRA liaison inspection laboratory assistant Chief Complaint : Here for 6 month [...] 07/23/2015 12:59 CDT General Info Languages : Cay[place] Islander Is Patient Female and 13-50 no hysterectomy [...] months : No Alcohol Use : No ANRDEA MALHOTRA RN - 07/23/2015 12:59 CDT Caffeine Use Grid Caffeine Use : Past Type : Coffee Frequency : Occasionally Amount : 2 cup per week ANDREA MALHOTRA RN - 07/23/2015 12:59 CDT Recreational Drug Use Grid Drug Use : None ANDREA MALHOTRA RN - 07/23/2015 12:59 CDT Source: [facility] POWERCHART Document Id: [id number] CDT!39 documented in this encounter Plan of Treatment Upcoming Encounters Date Type Specialty Care Team Description 01/22/2022 Office Visit Cardiovascular Disease Maritza Currie M.D. [address] [place], [place] [phone] (Wo rk) documented as of this encounter Visit Diagnoses Not on filedocumented in this encounter Additional Health Concerns Assessment Noted Time PHQ-9 Depression Total Score: 7 06/21/2014 9:20 AM CDT documented as of this encounter
--- OUTSIDE RECORDS SUMMARY | 2022-01-21 13:50 | XMS_ITS | Encounter Summary ---
:1945 Author Organization [facility] Address [address] [place] [address] Care Team Providers Name Role Phone Unavailable Primary Care Provider Unavailable Encounter Details Date Type Department Care Team Description 03/02/2015 Hospital Encounter HX [facility] BREEDING MANAGER Gail Garrison M.D. [address] [place] [phone] (Wo rk) Social History Tobacco Use [...] 158 cm (5' 2.21) 03/02/2015 8:46 AM CLINIC BUSINESS MANAGER Body Mass Index - - documented [...] of her program. Patient with stint placed [id number] to 70% blockage. Patient notedshe is feeling [...] information was provided. Darcy Gregorio MBA, RD, LD Electronically Signed By: REBECCA GREGORIO RDN, LD On: 03/02/2015 10:05 AM Source: [facility] POWERCHART Document Id: [id number] IC BUSINESS MANAGER documented in this encounter Plan of Treatment Upcoming Encounters Date Type Specialty Care Team Description 01/22/2022 Office Visit Cardiovascular Disease Maritza Currie M.D. [facility] [address] [place] [phone] (Wo karthik) documented as of this encounter Visit Diagnoses Not on filedocumented in this encounter Additional Health Concerns Assessment Noted Time PHQ-9 Depression Total Score: 7 06/21/2014 9:20 AM CDT documented as of this encounter
--- OUTSIDE RECORDS SUMMARY | 2022-01-21 13:50 | XMS_ITS | Encounter Summary ---
:1945 Author Organization [facility] Address [address] [place] [address] Care Team Providers Name Role Phone Unavailable Primary Care Provider Unavailable Encounter Details Date Type Department Care Team Description 01/24/2015 Hospital Encounter [facility] [place] Gail Garrison M.D. [address] [place] [phone] (Wo rk) Social History Tobacco Use [...] Comments Blood Pressure 122/70 01/24/2015 11:33 AM ADVANCED PRACTICE PROFESSIONAL Pulse 70 01/24/2015 11:33 AM ADVANCED PRACTICE PROFESSIONAL Temperature - - Respiratory Rate 16 01/24/2015 11:33 AM ADVANCED PRACTICE PROFESSIONAL Oxygen Saturation - - Inhaled Oxygen Concentration - - Weight 86 kg (189 lb 9.5 oz) 01/24/2015 11:33 AM ADVANCED PRACTICE PROFESSIONAL Height 158 cm (5' 2.21) 01/24/2015 11:33 AM ADVANCED PRACTICE PROFESSIONAL Body Mass Index 34.45 01/24/2015 11:33 AM ADVANCED PRACTICE PROFESSIONAL documented in this encounter Medications at Time [...] Ordered: OV Est Pt Level 4 - 22645 - 25 min 2. Palpitations Patient reports symptoms of palpitations and not feeling well. We placed a Holter monitor today to help determine if patient is having any arrhythmias that are contributing. Ordered: OV Est Pt Level 4 - 64850 - 25 min 3. Anxiety NOS At this point, will not make any changes to patient's Xanax. Once we know more about her cardiac status, we may make changes if her anxiety continues to be an issue. Ordered: OV Est Pt Level 4 - 49675 - 25 min Orders: Holter Monitor 48Hr Electronically Signed By: GAIL VILLAR MD On: 01/24/2015 09:31 PM Source[facility] POWEREffektif Document Id: [id number] NCED PRACTICE PROFESSIONAL documented in this encounter Miscellaneous Notes Miscellaneous - Gail Cortez M.D. - 01/24/2015 12:07 PM ADVANCED PRACTICE PROFESSIONAL Ambulatory Patient Summary [address] [phone] Visit Information Name: ARCHIE BAZAN [facility] Number: [id number] Current Date: 01/24/2015 12:07:07 Physicians [...] if you dont have one. Go to [email or web address] and click on Create Your Account. Then, follow the directions to complete the online form. Youll be asked for your [facility] number which you can find at the top of this document. Your Goals/Additional instructions: Source: [facility] POWERCHART Document Id: [id number] NCED PRACTICE PROFESSIONAL Miscellaneous - Gail Cortez M.D. - 01/24/2015 12:07 PM ADVANCED PRACTICE PROFESSIONAL Ambulatory Discharge Medication List [address] [id number] Visit Information Name: ARCHIE BAZAN [facility] Number: [id number] Visit Date: 01/24/2015 12:07:05 Attending Provider: GAIL VILLAR MD Primary Care Provider: GAIL VILLAR MD BENI ARCHIE MAI has been given the following [...] MD Signed On:24-JAN-2015 12:06:47 Additional Information: Source: [facility] POWERCHART Document Id: [id number] NCED PRACTICE PROFESSIONAL Miscellaneous - Yadira Lomeli, L.P.N. - 01/24/2015 11:33 AM CST Adult Supervisor Fleshing Intake/History Adult Supervisor Fleshing Intake/History Entered On: 01/24/2015 11:36 ADVANCED PRACTICE PROFESSIONAL Performed On: 01/24/2015 11:33 ADVANCED PRACTICE PROFESSIONAL by YADIRA LOMELI Intake Chief Complaint : [...] 34.45 kg/m2 YADIRA LOMELI - 01/24/2015 11:33 ADVANCED PRACTICE PROFESSIONAL General Info Information Given By : Patient Languages : Georgian Is Patient Female and 13-50 no hysterectomy : Hailee YADIRA LOMELI - 01/24/2015 11:33 ADVANCED PRACTICE PROFESSIONAL Subjective Pain Symptoms : Hailee YADIRA LOMELI - 01/24/2015 11:33 ADVANCED PRACTICE PROFESSIONAL Dependent Habits Exposure to Tobacco Smoke : Care provider denies smoking in home, Other: never Smoking Status : Never smoker Tobacco 2A : Hailee YADIRA LOMELI - 01/24/2015 11:33 ADVANCED PRACTICE PROFESSIONAL Caffeine Use Grid Caffeine Use : Past Type : Coffee, Soft drinks Frequency : Occasionally Amount : 1 cup per week YADIRA LOMELI - 01/24/2015 11:33 ADVANCED PRACTICE PROFESSIONAL Recreational Drug Use Grid Drug Use : None YADIRA LOMELI 01/24/2015 11:33 ADVANCED PRACTICE PROFESSIONAL [facility] Document Id: [id number] ADVANCED PRACTICE PROFESSIONAL!37 NCED PRACTICE PROFESSIONAL documented in this encounter Plan of Treatment Upcoming Encounters Date Type Specialty Care Team Description 01/22/2022 Office Visit Cardiovascular Disease Maritza Currie M.D. [address] [place] [phone] (Wo rk) documented as of this encounter Visit Diagnoses Not on filedocumented in this encounter Additional Health Concerns Assessment Noted Time PHQ-9 Depression Total Score: 7 06/21/2014 9:20 AM CDT documented as of this encounter
--- OUTSIDE RECORDS SUMMARY | 2022-01-21 13:50 | XMS_ITS | Encounter Summary ---
:1945 Author Organization [facility] Address [address] [place] [address] Care Team Providers Name Role Phone Unavailable [...] 158 cm (5' 2.21) 01/26/2015 7:48 AM Alejandro CST RN Body Mass Index - - documented [...] Cardiovascular Disease Maritza Currie M.D. [address] [place], [place] [phone] (Wo rk) documented as of this encounter Visit Diagnoses Not on filedocumented in this encounter Additional Health Concerns Assessment Noted Time PHQ-9 Depression Total Score: 7 06/21/2014 9:20 AM CDT documented as of this encounter
--- OUTSIDE RECORDS SUMMARY | 2022-01-21 13:50 | XMS_ITS | Encounter Summary ---
:1945 Author Organization [facility] Address [address] [place] [address] Care Team Providers Name Role Phone Unavailable Primary Care Provider Unavailable Encounter Details Date Type Department Care Team Description 12/18/2014 Hospital Encounter HX [facility] Olivia Vidales, FORCE ADJUSTMENT SUPERVISOR, C.N.P. [address] [place], [place] [address] (Wo rk) Social History [...] Comments Blood Pressure 140/69 12/18/2014 3:19 PM AFTERSCHOOL BABYSITTER Pulse 66 12/18/2014 3:19 PM AFTERSCHOOL BABYSITTER Temperature - - Respiratory Rate 16 12/18/2014 3:19 PM AFTERSCHOOL BABYSITTER Oxygen Saturation - - Inhaled Oxygen Concentration - - Weight - - Height 158 cm (5' 2.21) 12/18/2014 3:19 PM AFTERSCHOOL BABYSITTER Body Mass Index - - documented in this encounter Medications at Time of Discharge Medication Sig Dispensed Refills Start Date End Date ASPIRIN ORAL Take 81 mg by mouth daily. Take 0 11/13/2021 with food for heart health. documented as of this encounter Progress Notes Jose Carlos Vidales, R.N. - 12/18/2014 3:02 PM CST [id number] CHIEF COMPLAINT/REASON FOR VISIT Conjunctivitis follow up. HISTORY OF PRESENT ILLNESS Lurene is a very pleasant 69-year-old female who [...] NRegina/gene Electronically Signed By: JOSE CARLOS VIDALES TYPE SOLDERING MACHINE TENDER On: 12/19/2014 02:06 PM Modified by and Electronically Signed by: JOSE CARLOS VIDALES TYPE SOLDERING MACHINE TENDER On: 12/19/2014 02:06 PM Source: [facility] MHSDOLBEYNONRADSYS Document Id: [id number] RSCHOOL BABYSITTER documented in this encounter Miscellaneous Notes Miscellaneous - Jose Carlos Vidales R.N. - 12/18/2014 4:17 PM CST Ambulatory Patient Summary [address] [place], [place] [phone] Visit Information Name: ARCHIE BAZAN [facility] Number: [id number] Current Date: 12/18/2014 16:17:12 Physicians [...] Eyes(Both), four timesa day [facility] [address] [id number] glipiZIDE (glipiZIDE 5 mg oral tablet) 1 [...] emergency. Electronically Signed By: JOSE CARLOS VIDALES TYPE SOLDERING MACHINE TENDER Signed On:18-DEC-2014 16:17:04 Your Allergies & Intolerances [...] Appointments Date Time Location Provider 01/04/2015 11:15 [facility] Echo [facility] EC Room 1 Attention: Contact your local [...] if you dont have one. Go to [email or web address] and click on Create Your Account. Then, follow the directions to complete the online form. Youll be asked for your [facility] number which you can find at the top of this document. Your Goals/Additional instructions: Source: [facility] POWERCHART Document Id: [id number] RSCHOOL BABYSITTER Miscellaneous - Jose Carlos Vidales R.N. - 12/18/2014 4:17 PM CST Ambulatory Discharge Medication List [address] [id number] Visit Information Name: ARCHIE BAZAN [facility] Number: [id number] Visit Date: 12/18/2014 16:17:10 Attending Provider: JOSE CARLOS VIDALES TYPE SOLDERING MACHINE TENDER Primary Care Provider: NE VILLAR MD ELIDASTEVENARCHIE has been given the [...] Eyes(Both), four timesa day [facility] [address] [address] glipiZIDE (glipiZIDE 5 mg oral tablet) 1 [...] emergency. Electronically Signed By: JOSE CARLOS VIDALES TYPE SOLDERING MACHINE TENDER Signed On:18-DEC-2014 16:17:04 Additional Information: Source: [facility] POWERCHART Document Id: [id number] RSCHOOL BABYSITTER Miscellaneous - Nya Wilson, L.P.N. - 12/18/2014 3:19 PM CST Adult Still Tender Intake/History Adult Still Tender Intake/History Entered On: 12/18/2014 15:22 AFTERSCHOOL BABYSITTER Performed On: 12/18/2014 15:19 AFTERSCHOOL BABYSITTER by NYA WILSON LPN Intake Chief Complaint [...] inch(es)) NYA WILSON LPN - 12/18/2014 15:19 AFTERSCHOOL BABYSITTER General Info Information Given By : Patient Languages : Fijian Is Patient Female and 13-50 no hysterectomy : No NYA WILSON LPN - 12/18/2014 15:19 AFTERSCHOOL BABYSITTER Subjective Pain Symptoms : No NYA WILSON LPN - 12/18/2014 15:19 AFTERSCHOOL BABYSITTER Dependent Habits Tobacco Use/Currently Using : No Exposure to Tobacco Smoke : Care provider denies smoking in home Smoking Status : Never smoker Alcohol Use : No NYA WILSON LPN - 12/18/2014 15:19 AFTERSCHOOL BABYSITTER Caffeine Use Grid Caffeine Use : Past Type : Coffee, Soft drinks Frequency : Occasionally Amount : 1 cup per week NYA WILSON LPN - 12/18/2014 15:19 AFTERSCHOOL BABYSITTER Recreational Drug Use Grid Drug Use : None NYA WILSON LPN - 12/18/2014 15:19 AFTERSCHOOL BABYSITTER Source: [facility] [employer] Document Id: [id number] AFTERSCHOOL BABYSITTER!33 RSCHOOL BABYSITTER documented in this encounter Plan of Treatment Upcoming Encounters Date Type Specialty Care Team Description 01/22/2022 Office Visit Cardiovascular Disease Maritza Currie M.D. [address] [place] [phone] (Wo rk) documented as of this encounter Visit Diagnoses Not on filedocumented in this encounter Additional Health Concerns Assessment Noted Time PHQ-9 Depression Total Score: 7 06/21/2014 9:20 AM CDT documented as of this encounter
--- OUTSIDE RECORDS SUMMARY | 2022-01-21 13:50 | XMS_ITS | Encounter Summary ---
:1945 Author Organization [facility] Address [address] [place] [address] Care Team Providers Name Role Phone Unavailable Primary Care Provider Unavailable Encounter Details Date Type Department Care Team Description 04/17/2015 Hospital Encounter [facility] Gail gamez M.D. [address] [place] [phone] (Wo rk) Social History Tobacco Use [...] Comments Blood Pressure 125/56 04/17/2015 2:29 PM FASHION MARKETER Pulse 70 04/17/2015 2:29 PM FASHION MARKETER Temperature - - Respiratory Rate 16 04/17/2015 2:29 PM FASHION MARKETER Oxygen Saturation - - Inhaled Oxygen Concentration - - Weight 86.4 kg (190 lb 7.6 oz) 04/17/2015 2:29 PM FASHION MARKETER Height 158 cm (5' 2.21) 04/17/2015 2:29 PM FASHION MARKETER Body Mass Index 34.61 04/17/2015 2:29 PM FASHION MARKETER documented in this encounter Medications at Time [...] NOS Coronary Artery Disease (CAD) [place] Hyperlipidemia/Dyslipidemia Hypothyroidism NOS NIDDM [non-insulin dependent [...] Ordered: OV Est Pt Level 3 - 46415 - 15 min 2. DM2 We are [...] Ordered: OV Est Pt Level 3 - 75674 - 15 min Electronically Signed By: GAIL VILLAR MD On: 04/17/2015 03:19 PM Source: [facility] POWERCHART Document Id: [id number] ION MARKETER documented in this encounter Miscellaneous Notes Miscellaneous - Gail Cortez M.D. - 04/17/2015 3:06 PM FASHION MARKETER Ambulatory Patient Summary [address] [phone] Visit Information Name: ARCHIE BAZAN [facility] Number: [id number] Current Date: 04/17/2015 15:06:02 Physicians Attending Provider: GAIL VILLAR MD Primary Care Provider: GAIL VILLAR MD ARCHIE BAZANIEL has been given the following list of [...] Active Coronary Artery Disease (CAD) [place] Active Your Upcoming Appointments Date Time Location Provider 04/18/2015 08:[address] [facility] Rehab Srvs [facility] Cardio/Pulm Therapist 04/20/2015 08:[address] [facility] Rehab Srvs [facility] Cardio/Pulm Therapist 05/24/2015 08:00 [facility] Lab [facility] Lab 05/24/2015 08:15 [facility] Family Med Gail Gabriel MD 06/23/2015 14:30 [facility] Pierce Mcmahon MD, Lon Leblanc Attention: Contact [...] you dont have one. Go to [email or web address] and click on Create Your Account. Then, follow the directions to complete the online form. Youll be asked for your [facility] number which you can find at the top of this document. Your Goals/Additional instructions: Source: [facility] POWERCHART Document Id: [id number] ION MARKETER Miscellaneous - Gail Cortez M.D. - 04/17/2015 3:06 PM FASHION MARKETER Ambulatory Discharge Medication List [address] [place] [id number] Visit Information Name: ARCHIE BAZAN [facility] Number: [id number] Visit Date: 04/17/2015 15:06:00 [...] MD Signed On:17-APR-2015 15:04:53 Additional Information: Source: [facility] POWERCHART Document Id: [id number] ION MARKETER Miscellaneous - Petra Lopez L.P.N. - 04/17/2015 2:29 PM CST Adult Shot Bagger Intake/History Adult Shot Bagger Intake/History Entered On: 04/17/2015 14:34 FASHION MARKETER Performed On: 04/17/2015 14:29 FASHION MARKETER by PETRA LOPEZ LPN Intake Chief Complaint [...] kg/m2 PETRA LOPEZ LPN - 04/17/2015 14:29 FASHION MARKETER General Info Information Given By : Patient Languages : Maltese Is Patient Female and 13-50 no hysterectomy : No PETRA LOPEZ LPN - 04/17/2015 14:29 FASHION MARKETER Subjective Pain Symptoms : No PETRA LOPEZ LPN - 04/17/2015 14:29 FASHION MARKETER Dependent Habits Exposure to Tobacco Smoke : Care provider denies smoking in home, Other: never Smoking Status : Never smoker Tobacco 2A : No Tobacco Use/Currently Using : No Tobacco Use/Last 30 Days : No Tobacco Use/Last 12 months : No Alcohol Use : No PETRA LOPEZ LPN - 04/17/2015 14:29 FASHION MARKETER Caffeine Use Grid Caffeine Use : Past Type : Coffee, Soft drinks Frequency : Occasionally Amount : 1 cup per week PETRA LOPEZ LPN - 04/17/2015 14:29 FASHION MARKETER Recreational Drug Use Grid Drug Use : None PETRA LOPEZ LPN - 04/17/2015 14:29 FASHION MARKETER Source: [facility] [employer] Document Id: [id number] FASHION MARKETER!44 ION MARKETER documented in this encounter Plan of Treatment Upcoming Encounters Date Type Specialty Care Team Description 01/22/2022 Office Visit Cardiovascular Disease Maritza Currie M.D. [address] [place] [phone] (Wo rk) documented as of this encounter Visit Diagnoses Not on filedocumented in this encounter Additional Health Concerns Assessment Noted Time PHQ-9 Depression Total Score: 7 06/21/2014 9:20 AM CDT documented as of this encounter
--- OUTSIDE RECORDS SUMMARY | 2022-01-21 13:50 | XMS_ITS | Encounter Summary ---
:1945 Author Organization [facility] Address [address] [place] [address] Care Team Providers Name Role Phone Unavailable Primary Care Provider Unavailable Encounter Details Date Type Department Care Team Description 01/15/2015 Hospital Encounter [facility]X [facility] CARDIOLOG Mona Lemus M.D. [address] [place] [phone] (Wo rk) Social History Tobacco Use Types [...] Comments Blood Pressure 132/74 01/15/2015 1:17 PM ELEVATOR REPAIR MECHANIC Pulse 78 01/15/2015 1:17 PM ELEVATOR REPAIR MECHANIC Temperature - - Respiratory Rate - - Oxygen Saturation - - Inhaled Oxygen Concentration - - Weight 86.1 kg (189 lb 13.1 oz) 01/15/2015 1:17 PM ELEVATOR REPAIR MECHANIC Height 158 cm (5' 2.21) 01/15/2015 1:17 PM ELEVATOR REPAIR MECHANIC Body Mass Index 34.49 01/15/2015 1:17 PM ELEVATOR REPAIR MECHANIC documented in this encounter Medications at Time [...] an email communication from the nurse in [place] indicating that the patient was not ready [...] then she would like to proceed in [place]. Mona Lemus M.D./gene Electronically Signed By: MONA LEMUS MD On: 03/19/2015 09:10 AM Source: [facility] MHSDOLBEYNONRADSYS Document Id: [id number] ATOR REPAIR MECHANIC documented in this encounter Miscellaneous Notes Tonacellaneous - Andrea Malhotra R.N. - 01/25/2015 9:50 AM CST *General Message Document Contains Addenda Addendum by GAIL PEGUERO MD on 25 January 2015 10:07:33 ELEVATOR REPAIR MECHANIC From: GAIL PEGUERO MD To: ANDREA MALHOTRA RN; Sent: 01/25/2015 10:07:33 ELEVATOR REPAIR MECHANIC Subject: RE: *General Message Thanks so much! That was fast. Gail From: ANDREA MALHOTRA RN To: GAIL PEGUERO MD; Sent: 01/25/2015 09:50:36 ELEVATOR REPAIR MECHANIC Subject: *General Message Hi Marcial Strange will be going for her cardiac cath tomorrow. Dr. Lemus is ordering the procedure. Marcial will be stopping up here this am for the cath information. Thanks Source: [facility] POWERCHART Document Id: [id number] Electronically signed by Sae [facility] Virtualization Consultant [id number] at 07/14/2016 6:16 AM CDT Miscellaneous - Andrea Malhotra R.N. - 01/15/2015 1:17 PM CST Adult Budder Intake/History Adult Budder Intake/History Entered On: 01/15/2015 13:21 ELEVATOR REPAIR MECHANIC Performed On: 01/15/2015 13:17 ELEVATOR REPAIR MECHANIC by ANDREA MALHOTRA room service attendant Chief Complaint : Here to review stress [...] kg/m2 ANDREA MALHOTRA RN - 01/15/2015 13:17 ELEVATOR REPAIR MECHANIC General Info Information Given By : Patient, Spouse Preferred Communication Mode : Verbal Languages : Slovak Is Patient Female and 13-50 no hysterectomy : No ANDREA MALHOTRA RN - 01/15/2015 13:17 ELEVATOR REPAIR MECHANIC Subjective Pain Symptoms : No ANDREA MALHOTRA RN - 01/15/2015 13:17 ELEVATOR REPAIR MECHANIC Dependent Habits Exposure to Tobacco Smoke : Care provider denies smoking in home Smoking Status : Never smoker Tobacco 2A : No Alcohol Use : No ANDREA MALHOTRA RN - 01/15/2015 13:17 ELEVATOR REPAIR MECHANIC Caffeine Use Grid Caffeine Use : Past Type : Coffee, Soft drinks Frequency : Occasionally Amount : 1 cup per week ANDREA MALHOTRA RN - 01/15/2015 13:17 ELEVATOR REPAIR MECHANIC Recreational Drug Use Grid Drug Use : None ANDREA MALHOTRA RN - 01/15/2015 13:17 ELEVATOR REPAIR MECHANIC Source: [employer] Document Id: [id number] ELEVATOR REPAIR MECHANIC!37 ATOR REPAIR MECHANIC documented in this encounter Plan of Treatment Upcoming Encounters Date Type Specialty Care Team Description 01/22/2022 Office Visit Cardiovascular Disease Maritza Currie M.D. [address] [place] [phone] (Wo rk) documented as of this encounter Visit Diagnoses Not on filedocumented in this encounter Additional Health Concerns Assessment Noted Time PHQ-9 Depression Total Score: 7 06/21/2014 9:20 AM CDT documented as of this encounter
--- OUTSIDE RECORDS SUMMARY | 2022-01-21 13:50 | XMS_ITS | Encounter Summary ---
:1945 Author Organization [facility] Address [address] [place] [address] Care Team Providers Name Role Phone Unavailable Primary Care Provider Unavailable Encounter Details Date Type Department Care Team Description 02/01/2015 Hospital Encounter HX [facility] [place] Gail Garrison M.D. [address] [place] [phone] (Wo rk) Social History Tobacco Use [...] Comments Blood Pressure 122/52 02/01/2015 12:42 PM SPORTS MEDICINE COORDINATOR Pulse 70 02/01/2015 12:42 PM SPORTS MEDICINE COORDINATOR Temperature - - Respiratory Rate 18 02/01/2015 12:42 PM SPORTS MEDICINE COORDINATOR Oxygen Saturation - - Inhaled Oxygen Concentration - - Weight - - Height 158 cm (5' 2.21) 02/01/2015 12:42 PM SPORTS MEDICINE COORDINATOR Body Mass Index - - documented in [...] Artery Disease (CAD) NOS Notes reviewed from [place]. Patient's questions answered to the best of my ability. She is not on a beta rich and I am uncertain why. I will send Dr. Haile a message so that this can be addressed at her upcoming appt. Continue simvastatin. Ordered: OV Est Pt Level 4 - 94736 - 25 min 2. Coronary Stent S/P Patient is overall doing well. We discussed that she will need to be on Plavix for one year and thestop date was added to her med list. Ordered: OV Est Pt Level 4 - 31810 - 25 min 3. Palpitations We reviewed her Holter monitor which did show some abnormalities. My assumption is that these wouldbe managed medically. The beta rich could be beneficial. Again we will send a message to Dr. Haile so that she can review this prior to patient's appointment next week. Ordered: OV Est Pt Level 4 - 61867 - 25 min Electronically Signed By: GAIL VILLAR MD On: 02/02/2015 07:23 AM Source: [facility] POWERCHART Document Id: [id number] TS MEDICINE COORDINATOR documented in this encounter Miscellaneous Notes Miscellaneous - Gail Cortez M.D. - 02/01/2015 1:33 PM SPORTS MEDICINE COORDINATOR Ambulatory Patient Summary [address] [id number] Visit Information Name: ARCHIE BAZAN [facility] Number: [id number] Current Date: 02/01/2015 13:33:51 [...] Appointments Date Time Location Provider 02/02/2015 11:00 [facility] Rehab Srvs [facility] Cardio/Pulm Therapist 02/05/2015 14:15 [facility] Cardiology Mona Haile MD Attention: Contact [...] of this document. Your Goals/Additional instructions: Source: [facility] POWERCHART Document Id: [id number] TS MEDICINE COORDINATOR Miscellaneous - Gail Cortez M.D. - 02/01/2015 1:33 PM SPORTS MEDICINE COORDINATOR Ambulatory Discharge Medication List [address] [id number] Visit Information Name: ARCHIE BAZAN [facility] Number: [id number] Visit Date: 02/01/2015 13:33:50 [...] MD Signed On:01-FEB-2015 13:33:36 Additional Information: Source: [facility] POWERCHART Document Id: [id number] TS MEDICINE COORDINATOR Miscellaneous - Mel Batista, L.P.N. - 02/01/2015 12:42 PM CST Adult Healthcare Receptionist Intake/History Adult Healthcare Receptionist Intake/History Entered On: 02/01/2015 12:45 SPORTS MEDICINE COORDINATOR Performed On: 02/01/2015 12:42 SPORTS MEDICINE COORDINATOR by MEL BATISTA LPN Intake Chief Complaint [...] Weight Source : Standing scale MEL BATISTA [facility] - 02/01/2015 12:42 SPORTS MEDICINE COORDINATOR General Info Information Given By : Patient Languages : Yi Is Patient Female and 13-50 no hysterectomy : MEL Hunter [facility] - 02/01/2015 12:42 SPORTS MEDICINE COORDINATOR Subjective Pain Symptoms : MEL Hunter [facility] - 02/01/2015 12:42 SPORTS MEDICINE COORDINATOR Dependent Habits Exposure to Tobacco Smoke : Care provider denies smoking in home, Other: never Smoking Status : Never smoker Tobacco 2A : MEL Hunter [facility] - 02/01/2015 12:42 SPORTS MEDICINE COORDINATOR Caffeine Use Grid Caffeine Use : Past Type : Coffee, Soft drinks Frequency : Occasionally Amount : 1 cup per week MEL BATISTA [facility] - 02/01/2015 12:42 SPORTS MEDICINE COORDINATOR Recreational Drug Use Grid Drug Use : None MEL BATISTA [facility] - 02/01/2015 12:42 SPORTS MEDICINE COORDINATOR [facility] Document Id: [id number] SPORTS MEDICINE COORDINATOR!35 TS MEDICINE COORDINATOR documented in this encounter Plan of Treatment Upcoming Encounters Date Type Specialty Care Team Description 01/22/2022 Office Visit Cardiovascular Disease Maritza Currie M.D. [address] [place] [phone] (Wo rk) documented as of this encounter Visit Diagnoses Not on filedocumented in this encounter Additional Health Concerns Assessment Noted Time PHQ-9 Depression Total Score: 7 06/21/2014 9:20 AM CDT documented as of this encounter
--- OUTSIDE RECORDS SUMMARY | 2022-01-21 13:50 | XMS_ITS | Encounter Summary ---
:1945 Author Organization [facility] Address [address] [place] [address] Care Team Providers Name Role Phone Unavailable Primary Care Provider Unavailable Encounter Details Date Type Department Care Team Description 01/24/2015 Hospital Encounter [facility] Gail Hansen M.D. [address] [place] [phone] (Wo rk) Social History Tobacco Use [...] 158 cm (5' 2.21) 01/24/2015 12:13 PM MASONRY CONTRACTOR Body Mass Index - - documented in this encounter Medications at Time of Discharge Medication Sig Dispensed Refills Start Date End Date ASPIRIN ORAL Take 81 mg by mouth daily. Take 0 11/13/2021 with food for [employer]. documented as of this encounter Nursing Notes Andrea Malhotra R.N. - 01/25/2015 3:26 PM CST meds Patient instructed to hold glyizide and metformin before angiogram per Dr. Gabriel. Stated that she understood. Electronically Signed By: ANDREA MALHOTRA RN On: 01/25/2015 03:27 PM Modified by and Electronically Signed by: ANDREA MALHOTRA RN On: 01/25/2015 03:27 PM Source: [employer] Document Id: [id number] NRY CONTRACTOR documented in this encounter Miscellaneous Notes Miscellaneous - Conversion, Historical Provider Ser - 01/24/2015 11:59 PM MASONRY CONTRACTOR Coding Summary-Paper Based CODING DATE: 02/08/2015 FINAL [place] [facility] STATUS: * Discharged to Home or [...] CHAN Date Saved: 02/08/2015 09:20 am Source: [employer] Document Id: [id number] documented in this encounter Plan of Treatment Upcoming Encounters Date Type Specialty Care Team Description 01/22/2022 Office Visit Cardiovascular Disease Maritza Currie M.D. [address] [place] [phone] (Wo rk) documented as of this encounter Visit Diagnoses Not on filedocumented in this encounter Additional Health Concerns Assessment Noted Time PHQ-9 Depression Total Score: 7 06/21/2014 9:20 AM CDT documented as of this encounter
--- OUTSIDE RECORDS SUMMARY | 2022-01-21 13:50 | XMS_ITS | Encounter Summary ---
:1945 Author Organization [facility] Address [address] [place] [address] Care Team Providers Name Role Phone Unavailable Primary Care Provider Unavailable Encounter Details Date Type Department Care Team Description 07/04/2015 Hospital Encounter [facility] [address] [place] [phone] (Wo rk) Social History Tobacco Use [...] by DI LONDON RN Health Assessment Med [facility] Reason for visit : Subsequential Annual Wellness Visit Languages : Lebanese Systolic Blood Pressure : 120 mmHg Diastolic [...] Clinical Score HTN Calc : 8 DI LONDON ERA - 07/04/2015 14:45 CDT Allergy Latex Reaction : No Latex Hives/Itch : No Latex Congestion/Eye Irr/Breathing : No Latex Symptom Progression : No Latex Previous Test : No DI LONDONDHAVAL GIRARD - 07/04/2015 14:45 CDT (As Of: [...] Meds additional comment : refills from the [facility]-Uses a pill planner/scheduler DI LONDON ANULE GIRARD - 07/04/2015 14:45 CDT Medication List [...] tab(s) ; Ordering Provider: VICKEY HOLT DNP, EVENT PRODUCER; Catalog Code: aspirin ; Order Dt/Tm: 03/02/2012 [...] 16:23 - PETRA RUSSELL LPN [employer] 1968 Procedure Dt/Tm: 02/16/1986 ; Anesthesia Minutes: 0 ; Procedure Name: Biopsy of breast ; Procedure Minutes: 0 ; Comments: 09/24/2010 11:37 - VICKEY HOLT DNP, EVENT PRODUCER date unknown ; Last Reviewed Dt/Tm: 02/16/1986 00:00:00 [employer]ATASTROPHE CLAIMS SUPERVISOR Procedure Dt/Tm: 1959 ; Anesthesia Minutes: 0 ; Procedure Name: Appendectomy ; Procedure Minutes: 0; Last Reviewed Dt/Tm: 06/05/1959 00:00:00 CDT Procedure Dt/Tm: 01/03/2009 ; Anesthesia Minutes: 0 ; Procedure Name: Colonoscopy ; Procedure Minutes: 0 ; Comments: 09/18/2010 09:23 - JOHN CONCEPCION LPN WNL ; Last Reviewed Dt/Tm: 01/03/2009 00:00:00 CATASTROPHE CLAIMS SUPERVISOR Procedure Dt/Tm: 07/06/2002 ; Anesthesia Minutes: 0 ; Procedure Minutes: 0 ; Last Reviewed Dt/Tm: 07/06/2002 00:00:00 CDT Procedure Dt/Tm: 03/22/2001 ; Anesthesia Minutes: 0 ; Procedure Minutes: 0 ; Last Reviewed Dt/Tm: 03/22/2001 00:00:00 CATASTROPHE CLAIMS SUPERVISOR Procedure Dt/Tm: 06/14/1998 ; Anesthesia Minutes: 0 ; Procedure Minutes: 0 ; Last Reviewed Dt/Tm: 06/14/1998 00:00:00 CDT Procedure Dt/Tm: 01/04/2015 ; Anesthesia Minutes: 0 ; Procedure Name: Exercise stress echocardiography ; Procedure Minutes: 0 ; Last Reviewed Dt/Tm: 01/04/2015 00:00:00 CATASTROPHE CLAIMS SUPERVISOR Dependent Habits Exposure to Tobacco Smoke : [...] : No 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 MMSE=31. DI LONDON RN - 07/04/2015 14:45 CDT Vision Testing [facility] Date of last eye exam : 08/30/2014 CDT [facility] Glaucoma screen : Yes Corrective Lenses [...] two story home Sensory Deficits : None [facility] [place] Corrective Devices : Glasses [facility] [place] Safety Comment : no falls in the past year [facility] [place] Safety Vision Hearing Mobility : Yes DI [...] LONDON RN - 07/04/2015 14:45 CDT Referrals/Recommendations [facility] [place] Lifestyle goals/modificiations : Continues to be very [...] LONDON RN - 07/04/2015 14:45 CDT [facility] Document Id: [id number] CDT!3 documented in this encounter Plan of Treatment Upcoming Encounters Date Type Specialty Care Team Description 01/22/2022 Office Visit Cardiovascular Disease Maritza Crurie M.D. [address] [place] [phone] (Wo rk) documented as of this encounter Visit Diagnoses Not on filedocumented in this encounter Additional Health Concerns Assessment Noted Time PHQ-9 Depression Total Score: 7 06/21/2014 9:20 AM CDT documented as of this encounter
--- OUTSIDE RECORDS SUMMARY | 2022-01-21 13:50 | XMS_ITS | Encounter Summary ---
:1945 Author Organization [facility] Address [address] [place] [address] Care Team Providers Name Role Phone Unavailable Primary Care Provider Unavailable Encounter Details Date Type Department Care Team Description 12/11/2014 Hospital Encounter [facility] Olivia Vidales, ENERGY TRADER, C.N.P. [address] [place], [place] [address] (Wo rk) Social History [...] Vidales, R.N. - 12/11/2014 1:38 PM CDT [id number] CHIEF COMPLAINT/REASON FOR VISIT Painful eye. Sinus [...] N.Payal./gene Electronically Signed By: JOSE CARLOS VIDALES NP On: 12/13/2014 10:53 PM Modified by and Electronically Signed by: JOSE CARLOS VIDALES SERVICE AIDE On: 12/13/2014 10:53 PM Source: [facility] MHSDOLBEYNONRADSYS Document Id: [id number] documented in this encounter Miscellaneous Notes Miscellaneous - Jose Carlos Vidales R.N. - 12/11/2014 2:38 PM CDT Ambulatory Patient Summary [address] [place], [place] [phone] Visit Information Name: ARCHIE BAZAN [facility] Number: [id number] Current Date: 12/11/2014 14:38:49 Physicians Attending Provider: JOSE CARLOS VIDALES NP Primary Care Provider: GAIL VILLAR MD BENI ARCHIE ARENASIEL has been given the following list of [...] hours x 7 day(s) New Routed to [address] [address] *potassium acetate (potassium acetate) 1tab, Oral, once [...] Appointments Date Time Location Provider 01/04/2015 11:15 [facility] Echo [facility] EC Room 1 Attention: Contact your local [...] online form. Youll be asked for your [facility] number which you can find at the top of this document. Your Goals/Additional instructions: Source: [facility] POWERCHART Document Id: [id number] Miscellaneous - Jose Carlos Vidales R.N. - 12/11/2014 2:38 PM CDT Ambulatory Discharge Medication List [address] [phone] Visit Information Name: ARCHIE BAZAN [facility] Number: [id number] Visit Date: 12/11/2014 14:38:46 Attending Provider: JOSE CARLOS VIDALES SERVICE AIDE Primary Care Provider: GAIL VILLAR MD ARCIHE BAZAN has been given the following list [...] hours x 7 day(s) New Routed to [address] [address] *potassium acetate (potassium acetate) 1tab, Oral, once [...] emergency. Electronically Signed By: JOSE CARLOS VIDALES SERVICE AIDE Signed On:11-DEC-2014 14:38:35 Additional Information: Source: [facility] POWERCHART Document Id: [id number] Miscellaneous - Mel Batista, L.P.N. - 12/11/2014 1:46 PM CDT Adult Capacity Management Specialist Intake/History Adult Capacity Management Specialist Intake/History Entered On: 12/11/2014 13:50 CDT Performed On: 12/11/2014 13:46 CDT by MEL BATISTA LPN Intake Chief Complaint : Has left eye ,pink. Also blood sugars have been out wack. MEL BATISTA [facility] - 12/11/2014 13:52 CDT Temperature Core : [...] ft 2 inch(es), 62 inch(es)) MEL BATISTA [facility] - 12/11/2014 13:46 CDT General Info Information Given By : Patient Languages : Polish Is Patient Female and 13-50 no hysterectomy : No MEL BATISTA [facility] - 12/11/2014 13:46 CDT Subjective Pain Symptoms : Yes MEL BATISTA [facility] - 12/11/2014 13:46 CDT Pain Scale Pain Scale Verbal 0-10 : Open MEL BATISTA [facility] - 12/11/2014 13:46 CDT Pain Pain Assessment Grid Pain 1 Location : Other: sinus Intensity : 2 MEL BATISTA [facility] - 12/11/2014 13:46 CDT Dependent Habits Tobacco Use/Currently Using : No Exposure to Tobacco Smoke : Care provider denies smoking in home Smoking Status : Never smoker Alcohol Use : No MEL BATISTA ROTARY SURFACE GRINDER - 12/11/2014 13:46 CDT Caffeine Use Grid Caffeine Use : Past Type : Coffee, Soft drinks Frequency : Occasionally Amount : 1 cup per week MEL BATISTA LPN - 12/11/2014 13:46 CDT Recreational Drug Use Grid Drug Use : None MEL BATISTA [facility] 12/11/2014 13:46 CDT Source: Dr [employer] Document Id: [id number] CDT!3 documented in this encounter Plan of Treatment Upcoming Encounters Date Type Specialty Care Team Description 01/22/2022 Office Visit Cardiovascular Disease Maritza Currie M.D. [address] [place] [phone] (Wo rk) documented as of this encounter Visit Diagnoses Not on filedocumented in this encounter Additional Health Concerns Assessment Noted Time PHQ-9 Depression Total Score: 7 06/21/2014 9:20 AM CDT documented as of this encounter
--- OUTSIDE RECORDS SUMMARY | 2022-01-21 13:50 | XMS_ITS | Encounter Summary ---
:1945 Author Organization [facility] Address [address] [place] [address] Care Team Providers Name Role Phone Unavailable Primary Care Provider Unavailable Encounter Details Date Type Department Care Team Description 09/05/2015 Hospital Encounter HX [facility] [address] [place] [phone] (Wo rk) Social History Tobacco Use [...] VISIT Here for: Mammogram/US follow up. Discuss [facility] HISTORY OF PRESENT ILLNESS Marcial presents today [...] Anxiety disorder NOS Coronary Artery Disease (CAD) Cahto Vessel Hyperlipidemia/Dyslipidemia Hypothyroidism NOS NIDDM [non-insulin dependent [...] Ordered: OV Est Pt Level 3 - 53536 - 15 min 2. Pain Breast Patient's breast pain has been going on for years and is not changing. She was called back for diagnostic imaging of the left breast but ultimately it was nothing worrisome. I think we can continue with annual mammogram screening unless her pain is becoming more significant. Ordered: OV Est Pt Level 3 - 95627 - 15 min Electronically Signed By: NE VILLAR MD On: 09/06/2015 06:22 AM Source: [employer] Document Id: [id number] documented in this encounter Miscellaneous Notes Miscellaneous - Ne Cortez M.D. - 09/06/2015 6:24 AM CDT Results Notification Document Contains Addenda Addendum by MARIA C WILSON LPN on September 06, 2015 14:57:54 CDT talked with pt. and gave results. From: NE VILLAR MD To: [place] Family Medicine Nurse Scotty; Sent: 09/06/2015 06:24:18 [...] - <=5.6) Source: [facility] POWERCHART Document Id: [id number] Miscellaneous - Ne Cortez M.D. - 09/05/2015 1:04 PM CDT Ambulatory Patient Summary [address] [place] [id number] Visit Information Name: MARCIAL BAZAN [facility] Number: [id number] Current Date: 09/05/2015 13:04:30 [...] Stress Test Active Coronary Artery Disease (CAD) Cahto Vessel Active Your Upcoming Appointments Date Time [...] if you dont have one. Go to [email or web address] and click on Create Your Account. Then, follow the directions to complete the online form. Youll be asked for your [facility] number which you can find at the top of this document. Your Goals/Additional instructions: Source: [facility] POWERCHART Document Id: [id number] Miscellaneous - Ne Cortez M.D. - 09/05/2015 1:04 PM CDT Ambulatory Discharge Medication List [address] [id number] Visit Information Name: ELIDAMARCIAL HARRIS [facility] Number: [id number] Visit Date: 09/05/2015 13:04:29 [...] MD Signed On:05-SEP-2015 13:04:19 Additional Information: Source: [facility] POWERCHART Document Id: [id number] Miscellaneous - Julio Pérez, L.P.N. - 09/05/2015 12:22 PM CDT Adult Diabetes Physician Intake/History Adult Diabetes Physician Intake/History Entered On: 09/05/2015 12:30 CDT Performed On: 09/05/2015 12:22 CDT by JULIO PÉREZ Intake Chief Complaint : Here for: Mammogram/US follow up. Discuss [facility] Ambulatory Intake Additional Information : Was worried [...] : Large SpO2 : 100 % JULIO PÉREZ - 09/05/2015 12:22 CDT General Info Information Given By : Patient Languages : Italian Is Patient Female and 13-50 no hysterectomy : JULIO Rosario - 09/05/2015 12:22 CDT Subjective Pain Symptoms : JULIO Rosario - 09/05/2015 12:22 CDT Dependent Habits Exposure to Tobacco Smoke : Care provider denies smoking in home, Other: never Smoking Status : Never smoker Tobacco 2A : No Tobacco Use/Currently Using : No Tobacco Use/Last 30 Days : No Tobacco Use/Last 12 months : No Alcohol Use : No BETOJULIO AGUIRRE - 09/05/2015 12:22 CDT Caffeine Use Grid Caffeine Use : Past Type : Coffee Frequency : Occasionally Amount : 2 cup per week BETO JULIO Anderson - 09/05/2015 12:22 CDT Recreational Drug Use Grid Drug Use : None BETO JULIO Anderson - 09/05/2015 12:22 CDT [facility] Document Id: [id number] CDT!34 Miscellaneous - Sade Hanson R.N. - 08/21/2015 3:41 PM CDT diabetic supplies From: SADE HANSON RN Sent: 08/21/2015 15:41:37 CDT Subject: diabetic supplies Submitted: Order:Rx Test Strips Supply Message Once E11.9 DMII, Prodigy, use 2x/day or as directed, 99mo Qty: 200 each Refills: 3 Substitutions Allowed Don't Print - called to pharmacy (Rx) Signed by SADE HANSON RN Submitted: Order:Rx Lancets Supply Message Once E11.9 DMII, use twice a day or as directed, Stephen 99mo Qty: 200 each Refills: 3 Substitutions Allowed Don't Print - called to pharmacy (Rx) Signed by SADE HANSON RN Submitted: Order:Rx Diabetic Monitors Supply Message Once E11.9 DMII, Test 2x/day or as directed, Stephen 99mo Qty: 1 each Refills: 0 Substitutions Allowed Don't Print - called to pharmacy (Rx) Signed by SADE HANSON RN Pt requested new meter, she will need meter and supplies called in per [employer], they will let her know she is getting a new meter. [facility] Document Id: [id number] documented in this encounter Plan of Treatment Upcoming Encounters Date Type Specialty Care Team Description 01/22/2022 Office Visit Cardiovascular Disease Maritza Currie M.D. [address] [place], [place] [phone] (Wo rk) documented as [...]
--- OUTSIDE RECORDS SUMMARY | 2022-01-21 13:50 | XMS_ITS | Encounter Summary ---
:1945 Author Organization [facility] Address [address] [place] [address] Care Team Providers Name Role Phone Unavailable Primary Care Provider Unavailable Encounter Details Date Type Department Care Team Description 07/28/2014 Hospital Encounter HX [facility] [employer] DOCENT Gail Garrison M.D. [address] [place] [phone] (Wo rk) Social History Tobacco Use [...] daily. Take 0 11/13/2021 with food for [employer]. documented as of this encounter Progress Notes Rebecca Gregorio RDN, LD - 07/28/2014 6:02 AM CDT Outpatient [...] peanut butter, or nuts and fruit, or telugu yogurt. Discussed portion control using the plate [...] REBECCA GREGORIO On: 08/16/2014 06:10 AM Source: [employer] POWERCHART Document Id: [id number] documented in this encounter Plan of Treatment Upcoming Encounters Date Type Specialty Care Team Description 01/22/2022 Office Visit Cardiovascular Disease Maritza Currie M.D. [address] [place] [phone] (Wo rk) documented as of this encounter Visit Diagnoses Not on filedocumented in this encounter Additional Health Concerns Assessment Noted Time PHQ-9 Depression Total Score: 7 06/21/2014 9:20 AM CDT documented as of this encounter
--- OUTSIDE RECORDS SUMMARY | 2022-01-21 13:50 | XMS_ITS | Encounter Summary ---
:1945 Author Organization [facility] Address [address] [place] [address] Care Team Providers Name Role Phone Unavailable Primary Care Provider Unavailable Encounter Details Date Type Department Care Team Description 05/24/2015 Hospital Encounter HX [facility] Ne gamez M.D. [address] [place] [phone] (Wo rk) Social History Tobacco Use [...] Anxiety disorder NOS Coronary Artery Disease (CAD) Manzanita Vessel Hyperlipidemia/Dyslipidemia Hypothyroidism NOS NIDDM [non-insulin dependent [...] Appendectomy (1959), section. SOCIAL HISTORY Date Time: 05/24/2015 08:22 [...] Ordered: OV Est Pt Level 4 - 20962 - 25 min 2. Pain Leg Itz Most likely this is more musculoskeletal since the pain improves as she continues to walk. If it was claudication I think it would continue to get worse. We will continue to monitor. Ordered: OV Est Pt Level 4 - 60557 - 25 min 3. Hyperlipidemia NOS Lipid panel acceptable. ALT normal. Continue statin. 4. Rosacea NOS Patient has follow up with Dermatology next month. We will not make any changes until that appointment. Ordered: OV Est Pt Level 4 - 86315 - 25 min 5. Burning Sensation Skin This is a little better but continues. It is not overly bothersome so we will continue to monitor. Ordered: OV Est Pt Level 4 - 11564 - 25 min Electronically Signed By: NE VILLAR MD On: 05/25/2015 08:37 AM Source: [employer] Document Id: [id number] documented in this encounter Miscellaneous Notes Miscellaneous - Ne Cortez M.D. - 05/24/2015 8:59 AM CDT Ambulatory Patient Summary [address] [id number] Visit Information Name: MARCIAL BAZAN [facility] Number: [id number] Current Date: 05/24/2015 08:59:10 [...] Stress Test Active Coronary Artery Disease (CAD) Manzanita Vessel Active Your Upcoming Appointments Date Time Location Provider 05/25/2015 08:00 [facility] Rehab Srvs [facility] Cardio/Pulm Therapist 06/23/2015 14:30 [facility] Pierce Mcmahon MD, Lon Leblanc Attention: [...] if you dont have one. Go to [email or web address] and click on Create Your Account. Then, follow the directions to complete the online form. Youll be asked for your [facility] number which you can find at the top of this document. Your Goals/Additional instructions: Source: [facility] POWERCHART Document Id: [id number] Miscellaneous - Ne Cortez M.D. - 05/24/2015 8:59 AM CDT Ambulatory Discharge Medication List [address] [id number] Visit Information Name: MARCIAL BAZAN [facility] Number: [id number] Visit Date: 05/24/2015 08:59:09 [...] MD Signed On:24-MAY-2015 08:58:48 Additional Information: Source: [facility] POWERCHART Document Id: [id number] Miscellaneous - Ne Cortez M.D. - 05/24/2015 8:38 AM CDT Quality Measures Quality Measures Entered On: 05/25/2015 8:38 CDT Performed On: 05/24/2015 8:38 CDT by NE VILLAR MD Diabetes Date of Last Foot Exam : 05/24/2015 CDT NE VILLAR MD - 05/25/2015 8:38 CDT Source: [facility] POWERCHART Document Id: [id number] CDT!3 Miscellaneous - Maria C Wilson L.P.N. - 05/24/2015 8:22 AM CDT Adult Conference Translator Intake/History Adult Conference Translator Intake/History Entered On: 05/24/2015 8:27 CDT Performed [...] Information Given By : Patient Languages : Nigerian Is Patient Female and 13-50 no hysterectomy [...] Grid Drug Use : None MARIA C IWLSON Terri NIX - 05/24/2015 8:22 CDT Source: [facility] [employer] Document Id: [id number] CDT!41 Miscellaneous - Reanna Castano R.N. - 04/04/2015 3:39 PM CST alprazolam Document Contains Addenda Addendum by SADE HOGAN RN on 05 April 2015 09:00:07 INSPECTION ENGINEER called to [facility] Addendum by NE VILLAR MD on 05 April 2015 06:01:32 INSPECTION ENGINEER From: NE VILLAR MD Sent: 04/05/2015 06:01:32 INSPECTION ENGINEER Subject: RE:alprazolam Approved Order:ALPRAZolam (Xanax 0.5 mg oral tablet) 1 tab(s) PO q8hr Take for anxiety. Qty: 25 tab(s) Refills: 1 PRN Anxiety Don't Print - called to pharmacy (Rx) [facility] Signed by NE VILLAR MD 04/05/2015 06:01:30 From: REANNA CASTANO RN To: NE VILLAR MD; REANNA CASTANO RN; Sent: 04/04/2015 15:39:20 INSPECTION ENGINEER Subject: alprazolam On hold pending signature Order:ALPRAZolam (Xanax 0.5 mg oral tablet) 1 tab(s) PO q8hr Take for anxiety. Qty: 25 tab(s) Refills: 1 PRN Anxiety Don't Print - called to pharmacy (Rx) [facility] 02/22/15 Last written 11/23/14 #25 with 1 refill. Source: [facility] [employer] Document Id: [id number] Electronically signed by Conversion, [facility] Asset Administrator [id number] at 07/12/2016 8:28 PM CDT Miscellaneous - Sade Hogan R.N. - 03/09/2015 11:17 AM CST triage call Document Contains Addenda Addendum by REANNA CASTANO RN on 12 March 2015 06:54:16 INSPECTION ENGINEER noted Addendum by NE VILLAR MD on 10 March 2015 21:08:11 INSPECTION ENGINEER From: NE VILLAR MD To: SADE HOGAN RN; Sent: 03/10/2015 21:08:11 INSPECTION ENGINEER Subject: RE: triage call Agree with plan. From: SADE HOGAN RN To: NE VILLAR MD; SADE HOGAN RN; Sent: 03/09/2015 11:17:45 INSPECTION ENGINEER Subject: triage call Pt called to ask [...] tea this am. Advised increased liquids. Source: [facility] Document Id: [id number] Electronically signed by Conversion, [facility] Asset Administrator [id number] at 07/12/2016 8:28 PM CDT documented in this encounter Plan of Treatment Upcoming Encounters Date Type Specialty Care Team Description 01/22/2022 Office Visit Cardiovascular Disease Maritza Currie M.D. [address] [place] [phone] (Wo rk) documented as of [...] POWERCHART MMOLL HXeGFR (MDRD) >60 >=60 POWERCHART [id number] eGFR >60 >=60 POWERCHART Black/ [id number] [place] Citizen Specimen (Source) Anatomical Collection Method Collection Time [...] mg/dL Triglycerides 135 <=149 MGDL POWERCHART Comment: 2013 National Lipid [...] esting for FH and FDB is available [facility]: FH/ADH Genetic Reflex Case el (test ADHP). Acquired (non-genetic) causes of markedly increased LDL cholesterol include cholestatic liver disease due to the presence of LpX. If a genetic form of hypercholesterolemia is suspected, family studies including biochemical testing fo r lipids (total cholesterol,triglycerides, LDL cholesterol and HDL cholesterol) are recommended. ??Please contact the laboratory at or the on-line test catalog at [employer] for information about how to order these [...]
--- OUTSIDE RECORDS SUMMARY | 2022-01-21 13:50 | XMS_ITS | Encounter Summary ---
:1945 Author Organization [facility] Address [address] [place] [address] Care Team Providers Name Role Phone Unavailable Primary Care Provider Unavailable Encounter Details Date Type Department Care Team Description 02/22/2015 Hospital Encounter HX [facility] Gail gamez M.D. [address] [place] [phone] (Wo rk) Social History Tobacco Use [...] Comments Blood Pressure 122/58 02/22/2015 9:24 AM CADMIUM PLATER Pulse 65 02/22/2015 9:24 AM CADMIUM PLATER Temperature - - Respiratory Rate 16 02/22/2015 9:24 AM CADMIUM PLATER Oxygen Saturation - - Inhaled Oxygen Concentration - - Weight 86.4 kg (190 lb 7.6 oz) 02/22/2015 9:24 AM CADMIUM PLATER Height 158 cm (5' 2.21) 02/22/2015 9:24 AM CADMIUM PLATER Body Mass Index 34.61 02/22/2015 9:24 AM CADMIUM PLATER documented in this encounter Medications at Time [...] VILLAR MD on 25 February 2015 13:08:47 CADMIUM PLATER Patient also reports that her rosacea has [...] Anxiety disorder NOS Coronary Artery Disease (CAD) [place]itina Vessel Hyperlipidemia/Dyslipidemia Hypothyroidism NOS NIDDM [non-insulin dependent [...] edema. IMPRESSION/REPORT/PLAN 1. Coronary Artery Disease (CAD) [place]ina Vessel Patient seems to be doing better [...] Ordered: OV Est Pt Level 4 - 29949 - 25 min 2. NIDDM [non-insulin dependent diabetes mellitus] Patient reports that her blood sugars have been good. She takes the glipizide in the morning and the metformin in the evening. She was taking the glipizide first but I advised her to take the levothyroxine first followed by the glipizide. A1c is due in May. Ordered: OV Est Pt Level 4 - 90702 - 25 min 28 minutes were spent with the patient today with over half of the time counseling patient and answering her questions. Electronically Signed By: GAIL VILLAR MD On: 02/25/2015 01:08 PM Source: [facility] POWERCHART Document Id: [id number] IUM PLATER documented in this encounter Miscellaneous Notes Miscellaneous - Gail Cortez M.D. - 02/22/2015 10:16 AM CADMIUM PLATER Ambulatory Patient Summary [address] [place] [id number] Visit Information Name: ARCHIE BAZAN [facility] Number: [id number] Current Date: 02/22/2015 10:16:38 Physicians [...] Stress Test Active Coronary Artery Disease (CAD) Chitina Vessel Active Your Upcoming Appointments Date Time Location Provider 02/23/2015 11:00 [facility] Rehab [facility] Cardio/Pulm Therapist 03/02/2015 08:45 [facility] Charcoal Unloader Rebecca [address] RD Attention: Contact your local [...] if you dont have one. Go to [email or web address] and click on Create Your Account. Then, follow the directions to complete the online form. Youll be asked for your [facility] number which you can find at the top of this document. Your Goals/Additional instructions: Source: [facility] POWERCHART Document Id: [id number] IUM PLATER Miscellaneous - Gail Cortez M.D. - 02/22/2015 10:16 AM CADMIUM PLATER Ambulatory Discharge Medication List [place] - [address] [phone] Visit Information Name: ARCHIE BAZAN [facility] Number: [id number] Visit Date: 02/22/2015 10:16:36 Attending [...] MD Signed On:22-FEB-2015 10:16:23 Additional Information: Source: [facility] POWERCHART Document Id: [id number] IUM PLATER Miscellaneous - Jie Thomason L.P.N. - 02/22/2015 9:24 AM CST Adult Gyroscope Repairer Intake/History Adult Gyroscope Repairer Intake/History Entered On: 02/22/2015 9:26 CADMIUM PLATER Performed On: 02/22/2015 9:24 CADMIUM PLATER by JIE THOMASON LPN Intake Chief Complaint [...] kg/m2 JIE THOMASON LPN - 02/22/2015 9:24 CADMIUM PLATER General Info Information Given By : Patient Preferred Communication Mode : Verbal Languages : Serbian Is Patient Female and 13-50 no hysterectomy : No JIE THOMASON LPN - 02/22/2015 9:24 CADMIUM PLATER Subjective Pain Symptoms : No JIE THOMASON LPN - 02/22/2015 9:24 CADMIUM PLATER Dependent Habits Exposure to Tobacco Smoke : Care provider denies smoking in home, Other: never Smoking Status : Never smoker Tobacco 2A : No Tobacco Use/Currently Using : No Tobacco Use/Last 30 Days : No Tobacco Use/Last 12 months : No Alcohol Use : No JIE HTOMASON LPN - 02/22/2015 9:24 CADMIUM PLATER Caffeine Use Grid Caffeine Use : Past Type : Coffee, Soft drinks Frequency : Occasionally Amount : 1 cup per week JIE THOMASON LPN - 02/22/2015 9:24 CADMIUM PLATER Recreational Drug Use Grid Drug Use : None JIE THOMASON LPN - 02/22/2015 9:24 CADMIUM PLATER Source: [facility] POWERCHART Document Id: [id number] CADMIUM PLATER!43 IUM PLATER documented in this encounter Plan of Treatment Upcoming Encounters Date Type Specialty Care Team Description 01/22/2022 Office Visit Cardiovascular Disease Maritza Currie M.D. [address] [place] [phone] (Wo rk) documented as of this encounter Visit Diagnoses Not on filedocumented in this encounter Additional Health Concerns Assessment Noted Time PHQ-9 Depression Total Score: 7 06/21/2014 9:20 AM CDT documented as of this encounter
--- OUTSIDE RECORDS SUMMARY | 2022-01-21 13:50 | XMS_ITS | Encounter Summary ---
:1945 Author Organization [facility] Address [address] [place] [address] Care Team Providers Name Role Phone Unavailable [...] Cardiovascular Disease Maritza Currie M.D. [address] [place], [place] [phone] (Wo rk) documented as of this encounter Visit Diagnoses Not on filedocumented in this encounter Additional Health Concerns Assessment Noted Time PHQ-9 Depression Total Score: 7 06/21/2014 9:20 AM CDT documented as of this encounter
--- OUTSIDE RECORDS SUMMARY | 2022-01-21 13:50 | XMS_ITS | Encounter Summary ---
:1945 Author Organization [facility] Address [address] [place] [address] Care Team Providers Name Role Phone Unavailable Primary Care Provider Unavailable Encounter Details Date Type Department Care Team Description 07/27/2015 Hospital Encounter HX [facility] Gail Ramos M.D. [address] [phone] (Wo rk) Social History Tobacco [...] Summary-Paper Based CODING DATE: 07/30/2015 FINAL [place] [facility] STATUS: * Discharged to Home or [...] CHAN Date Saved: 07/30/2015 10:50 am Source: [employer] Document Id: [id number] documented in this encounter Plan of Treatment Upcoming Encounters Date Type Specialty Care Team Description 01/22/2022 Office Visit Cardiovascular Disease Maritza Currie M.D. [address] [place] [phone] (Wo rk) documented as of this encounter Visit Diagnoses Not on filedocumented in this encounter Additional Health Concerns Assessment Noted Time PHQ-9 Depression Total Score: 7 06/21/2014 9:20 AM CDT documented as of this encounter
--- OUTSIDE RECORDS SUMMARY | 2022-01-21 13:50 | XMS_ITS | Encounter Summary ---
:1945 Author Organization [facility] Address [address] [place] [address] Care Team Providers Name Role Phone Unavailable Primary Care Provider Unavailable Encounter Details Date Type Department Care Team Description 07/25/2014 Hospital Encounter HX [facility] Asha Ramon, MAL, C.N.P., D. N.P. [address], [place] [phone] (Wo rk) Social History [...] Coding Summary-Paper Based CODING DATE: 08/11/2014 FINAL [facility] STATUS: * Discharged to Home or [...] CHAN Date Saved: 08/11/2014 10:06 am Source: [employer] Document Id: [id number] Miscellaneous - Nicki Holt D.N.P., C.N.P. - 07/25/2014 11:21 AM CDT Normal Results Letter 25 July 2014 ARCHIE BAZAN [address] [place] [id number] Dear ARCHIE BAZAN, Your bone density scan [...] MD. [id number] 24-Jul-2014 11:57 Sincerely, NICKI HOLT [address] [place], [place] [address] Electronic Signature Electronically Signed By: NICKI HOLT DNP, WELT STITCH CLEANER On: 25 July 2014 This document has images extracted. Source: [facility] POWERCHART Document Id: [id number] documented in this encounter Plan of Treatment Upcoming Encounters Date Type Specialty Care Team Description 01/22/2022 Office Visit Cardiovascular Disease Maritza Currie M.D. [address] [place] [phone] (Wo rk) documented as of this encounter Visit Diagnoses Not on filedocumented in this encounter Additional Health Concerns Assessment Noted Time PHQ-9 Depression Total Score: 7 06/21/2014 9:20 AM CDT documented as of this encounter
--- OUTSIDE RECORDS SUMMARY | 2022-01-21 13:50 | XMS_ITS | Encounter Summary ---
:1945 Author Organization [facility] Address [address] [place] [address] Care Team Providers Name Role Phone Unavailable Primary Care Provider Unavailable Encounter Details Date Type Department Care Team Description 01/26/2015 - Hospital Encounter HX [facility] Mao Ray, 01/27/2015 Lee, Ph.D. [address] [place] [phone] (Wo rk) Social History Tobacco Use Types [...] 01/27/2015 9:45 AM NIBP - Value from [employer]. Pulse 72 01/27/2015 9:45 AM Value from [employer]. [employer] Temperature - - Respiratory Rate 16 01/27/2015 9:30 AM Value from C [employer]. [employer]IOR [employer]IST Oxygen Saturation - - Inhaled Oxygen - - Concentration Weight 83 kg (182 lb 15.7 01/27/2015 8:00 AM Value from [employer]. oz) S[employer]IOR [employer]IST Height - - Body Mass Index 33.25 01/26/2015 7:48 AM S[employer]IOR [employer] PAR[employer]IST documented in this encounter Medications at Time [...] Disease Maritza Currie M.D. [address] [place], [place] [phone] (Wo rk) documented as of this encounter Procedures Procedure Name Priority Date/Time Associated Comments Diagnosis GLUCOSE POCT, B Routine 01/27/2015 6:26 AM Result s for this [employer] procedure are i n the results section. ECG Routine 01/27/2015 5:23 AM Results f or this [employer] procedure are i n the results section. CBC WITHOUT Routine 01/27/2015 4:11 AM Results f or this DIFFERENTIAL, B [employer] procedure ar e in the results section. CREATININE WITH Routine 01/27/2015 4:11 AM Result s for this EGFR, S/P [employer] procedure are i n the results section. GLUCOSE POCT, B Routine 01/26/2015 9:30 PM Result s for this [employer] procedure are i n the results section. ACT, POCT, B Routine 01/26/2015 1:50 PM Results f or this [employer] procedure are i n the results section. GLUCOSE POCT, B Routine 01/26/2015 11:44 AM Resul ts for this [employer] procedure are i n the results section. documented in this encounter Results (ABNORMAL) Glucose, POCT (01/27/2015 6:26 AM S[employer]IOR [employer] PARACH[employer]IST) [facility] gist Method Time Signature Glucose, POCT, 145 (H) 70 - 140 [facility] B MG/DL LABORATORIES - [facility] Last Intake > 4 hours [facility] Specimen Anatomical Collection Method Collection Time Receive d Time (Source) Location / / Volume Laterality 01/27/2015 6:26 AM 5 6:26 [employer] AM [employer] Historical Provider LAB POCT ORDERABLES-MANUAL Performing Organization Address City/State/ZIP Code Phon e Number [facility] LABORATORIES - [address] [place], [place] [address] [facility] ECG 12 Lead (01/27/2015 5:23 AM [employer]IST) Specimen (Source) Anatomical Collection Method Collection Time Re ceived Time Location / / Volume Laterality 01/27/2015 5:23 AM [facility] RADIOLOGY SYSTEM - 01/27/2015 6:34 AM [employer]IST [id number] 05:23 VENTRICULAR RATE 62 Normal sinus rhythm Nonspecific ST and T wave abnormality When compared with ECG of 26-JAN-2015 08 :09, No significant change was found [id number]^ADONAY SUÁREZ^RULA Law Procedure Note Rula Jacobsen M.B., Lee Elkins - 04/17 [id number] 05:23 VENTRICULAR RATE 62 Normal sinus rhythm Nonspecific ST and T wave abnormality When compared with ECG of 26-JAN-2015 08 :09, No significant change was found [id number]^ADONAY SUÁREZ^RULA Law Nubia Castañeda M.D., Ph.D. ECG ORDERABLES Performing Organization Address City/State/ZIP Code Phon e Number HX [facility] RADIOLOGY SYSTEM [address] [place] [address], U [place] Creatinine with Estimated GFR (MDRD) (01/27/2015 4:11 AM [employer]IST) Analysis Performed At Path logist Time Signature eGFR-Black/Afri >60 >60 [facility] can Serbian ML/MIN/BSA LABORATORIES - [facility] Creatinine 0.9 0.6 - 1.1 [facility] MG/DL LABORATORIES - [facility] eGFR >60 >60 [facility] Non-Black/Afric ML/MIN/BSA LABORATORIES - an Serbian [facility] Specimen Anatomical Collection Method Collection Time Receive d Time (Source) Location / / Volume Laterality 01/27/2015 4:11 AM 5 4:11 [employer] AM [employer] Nubia Castañeda M.D., Ph.D. LAB BLOOD ADD-ON Performing Organization Address City/State/ZIP Code Phon e Number [facility] LABORATORIES - [address] [place], [place] [address] [facility] (ABNORMAL) CBC without Differential (01/27/2015 4:11 AM [employer]) [facility] Method Time Signature Hemoglobin 11.3 (L) 12.0 - [facility] 15.5 G/DL LABORATORIES - [facility] Hematocrit 34.6 (L) 34.9 - [facility] 44.5 % LABORATORIES - [facility] RBC Distrib 14.0 11.9 - [facility] Width 15.5 % LABORATORIES - [facility] Platelet Count 205 150 - 450 [facility] X10(9)/L LABORATORIES - [facility] Leukocytes 8.1 3.5 - [facility] 10.5 LABORATORIES - X10(9)/L [facility] Erythrocytes 3.80 (L) 3.90 - [facility] 5.03 LABORATORIES - X10(12)/L [facility] MCV 91.1 81.6 - [facility] 98.3 FL LABORATORIES - [facility] Specimen Anatomical Collection Method Collection Time Receive d Time (Source) Location / / Volume Laterality 01/27/2015 4:11 AM 5 4:11 [employer] AM [employer] Nubia Castañeda M.D., Ph.D. LAB BLOOD ADD-ON Performing Organization Address City/[facility]/ZIP Code Phon e Number [facility] LABORATORIES - [address] [place] [address] [address] [facility] (ABNORMAL) Glucose, POCT (01/26/2015 9:30 PM [employer]) [facility] Method Time Signature Glucose, 186 (H) 70 - 140 [facility] POCT, B MG/DL LABORATORIES - [facility] Sample Site, Capillary [facility] Blood Gas, LABORATORIES - POCT [facility] Last Intake 3-4 hours [facility]ATORIES - [facility] Specimen Anatomical Collection Method Collection Time Receive d Time (Source) Location / / Volume Laterality 01/26/2015 9:30 PM 5 9:30 [employer]IST PM [employer] Historical Provider LAB POCT ORDERABLES-MANUAL Performing Organization Address City/[facility]/ZIP Code Phon e Number [facility] LABORATORIES - [address] [place] [address] [address] [facility] ACT (Activated Clotting Time), POCT (01/26/2015 1:50 PM S[employer]IOR [employer] PARACHUTIST) athologist Signature Activated 124 84 - 139 [facility] Clotting Time, SEC LABORATORIES - POCT [facility] Specimen Anatomical Collection Method Collection Time Receive d Time (Source) Location / / Volume Laterality 01/26/2015 1:50 PM 5 1:50 S[employer]IOR [employer] PARACH[employer]IST PM [employer]IOR [employer] PARACH[employer]IST Historical Provider LAB POCT ORDERABLES - DEVICE Performing Organization Address City/[facility]/ZIP Code Phon e Number [facility] LABORATORIES - [address] [place] [address] [address] [facility] Glucose, POCT (01/26/2015 11:44 AM S[employer]IOR [employer] PAR[employer]UTIST) Patholo gist Method Time Signature Last Intake > 4 hours [facility]ORATORIES - [facility] Glucose, 113 70 - 140 [facility] POCT, B MG/DL LABORATORIES - [facility] Sample Site, Capillary [facility] Blood Gas, LABORATORIES - POCT [facility] Specimen Anatomical Collection Method Collection Time Receive d Time (Source) Location / / Volume Laterality 01/26/2015 11:44 01/26/2015 AM [employer] 11:44 AM S[employer]IOR [employer] PAR[employer]IST Historical Provider LAB POCT ORDERABLES-MANUAL Performing Organization Address City/State/ZIP Code Phon e Number [facility] LABORATORIES - [address] [place], [place] [address] [facility] documented in this encounter Visit Diagnoses Not on filedocumented in this encounter Additional Health Concerns Assessment Noted Time PHQ-9 Depression Total Score: 7 06/21/2014 9:20 AM CDT documented as of this encounter
--- OUTSIDE RECORDS SUMMARY | 2022-01-21 13:50 | XMS_ITS | Encounter Summary ---
:1945 Author Organization [facility] Address [address] [place] [address] Care Team Providers Name Role Phone Unavailable Primary Care Provider Unavailable Encounter Details Date Type Department Care Team Description 11/29/2014 Hospital Encounter HX [facility] Gail Garrison M.D. [address] [place] [phone] (Wo rk) Social History Tobacco Use [...] with her vision and she saw an catalyst operator chief this summer. She does not sleep well. [...] VILLAR MD On: 12/02/2014 12:48 PM Source: [facility] POWERCHART Document Id: [id number] documented in this encounter Miscellaneous Notes Miscellaneous - Gail Cortez M.D. - 11/29/2014 9:09 AM CDT Ambulatory Patient Summary [address] [place] [id number] Visit Information Name: ARCHIE BAZAN [facility] Number: [id number] Current Date: 11/29/2014 09:09:24 Physicians [...] breakfast This is a CHANGE Routed to [facility] [address] [address] levothyroxine (levothyroxine 75 mcg (0.075 mg) oral [...] have one. Go to [email or web address] and click on Create Your Account. Then, follow the directions to complete the online form. Youll be asked for your [facility] number which you can find at the top of this document. Your Goals/Additional instructions: Source: [facility] POWERCHART Document Id: [id number] Miscellaneous - Gail Cortez M.D. - 11/29/2014 9:09 AM CDT Ambulatory Discharge Medication List [address] [id number] Visit Information Name: ARCHIE BAZAN [facility] Number: [id number] Visit Date: 11/29/2014 09:09:22 Attending [...] This is a CHANGE Routed to [facility] [address] [place] [address] levothyroxine (levothyroxine 75 mcg (0.075 mg) oral [...] MD Signed On:29-NOV-2014 09:09:10 Additional Information: Source: [facility] POWERCHART Document Id: [id number] Miscellaneous - Vitaliy Darnell, L.P.N. - 11/29/2014 8:18 AM CDT Adult Director Motion Picture Intake/History Adult Director Motion Picture Intake/History Entered On: 11/29/2014 8:24 CDT Performed [...] Preferred Communication Mode : Verbal Languages : Lithuanian Is Patient Female and [...] : 1 cup per week VITALIY DARNELL HAND LOOM WEAVER - 11/29/2014 8:18 CDT Recreational Drug Use Grid Drug Use : None VITALIY DARNELL LPN - 11/29/2014 8:18 CDT Source: [facility] POWERCHART Document Id: [id number]!44 Miscellaneous - Reanna Amanda RSusan - 11/22/2014 3:24 PM CDT alprazolam Document Contains Addenda Addendum by REANNA AMANDA RN on 23 November 2014 10:21:21 CDT Called to [facility] Addendum by GAIL VILLAR MD on [...] - called to pharmacy (Rx) [facility] 07/24/14 LF 10/11/13 Source: [facility] POWERCHART Document Id: [id number] Electronically signed by [facility] system[facility] Hoop Driving Machine Operator Helper [id number] at 07/14/2016 3:43 AM CDT documented in this encounter Plan of Treatment Upcoming Encounters Date Type Specialty Care Team Description 01/22/2022 Office Visit Cardiovascular Disease Maritza Currie M.D. [address] [place] [phone] (Wo rk) documented as of this encounter Visit Diagnoses Not on filedocumented in this encounter Additional Health Concerns Assessment Noted Time PHQ-9 Depression Total Score: 7 06/21/2014 9:20 AM CDT documented as of this encounter
--- OUTSIDE RECORDS SUMMARY | 2022-01-21 13:50 | XMS_ITS | Encounter Summary ---
:1945 Author Organization [facility] Address [address] [place] [address] Care Team Providers Name Role Phone Unavailable Primary Care Provider Unavailable Encounter Details Date Type Department Care Team Description 11/22/2014 Hospital Encounter HX [facility] Gail Cortez M.D. [address] [place] [phone] (Wo rk) Social History Tobacco Use Types [...] Letter 27 November 2014 ARCHIE BAZAN [address] [place] [id number] Dear ARCHIE BAZAN, Please review your results [...] Calculated (mg/dL) 77 11/22/2014 (L) 88 12/12/2013 [id number] - <=129 Chol/HDL Ratio 3 11/22/2014 3 12/12/2013 Hgb A1c (% A1C) (H) 7.5 11/22/2014 (H) 7.6 03/13/2014 - <=5.6 Sincerely, GAIL VILLAR [address] [address] Electronic Signature Electronically Signed By: GAIL VILLAR MD On: 27 November 2014 This document has images extracted. Source: [facility] M[employer]owCHART Document Id: [id number] Electronically signed by Conversion, [facility] Gas Appliance Mechanic [id number] at 07/14/2016 3:43 AM CDT documented in this encounter Plan of Treatment Upcoming Encounters Date Type Specialty Care Team Description 01/22/2022 Office Visit Cardiovascular Disease Maritza Currie M.D. [address] [place] [phone] (Wo rk) documented as of this [...] POWERCHART MMOLL HXeGFR (MDRD) >60 >=60 POWERCHART [id number] eGFR >60 >=60 POWERCHART Black/ [id number] Tajik Specimen (Source) Anatomical Collection Method Collection Time [...] esting for FH and FDB [facility]: FH/ADH Genetic Reflex Case el (test ADHP). Acquired (non-genetic) causes of markedly increased LDL cholesterol include cholestatic liver disease due to the presence of LpX. If a genetic form of hypercholesterolemia is suspected, family studies including biochemical testing fo r lipids (total cholesterol,triglycerides, LDL cholesterol and HDL cholesterol) are recommended. ??Please contact the laboratory at or the on-line test catalog at [employer] for information about how to order these [...]
--- OUTSIDE RECORDS SUMMARY | 2022-01-21 13:50 | XMS_ITS | Encounter Summary ---
:1945 Author Organization [facility] Address [address] [place] [address] Care Team Providers Name Role Phone Unavailable Primary Care Provider Unavailable Encounter Details Date Type Department Care Team Description 07/21/2015 Hospital Encounter [facility] Clari Jeffers M.D. [address] , [address] [place], [place] [address] (Wo rk) Social History [...] of this encounter Nursing Notes Melvin Lauren, LJairoPJairoN. - 07/21/2015 12:07 PM CDT Dermatology Intake Dermatology Intake Entered On: 07/21/2015 12:10 CDT Performed On: 07/21/2015 12:07 CDT by MELVIN LAUREN [facility] General Preferred Name : Marcial Accompanied [...] LAUREN LPN - 07/21/2015 12:07 CDT [facility] Document Id: [id number] CDT!28 documented in this encounter Plan of Treatment Upcoming Encounters Date Type Specialty Care Team Description 01/22/2022 Office Visit Cardiovascular Disease Maritza Currie M.D. [address] [place] [phone] (Wo rk) documented as of this encounter Visit Diagnoses Not on filedocumented in this encounter Additional Health Concerns Assessment Noted Time PHQ-9 Depression Total Score: 7 06/21/2014 9:20 AM CDT documented as of this encounter
--- OUTSIDE RECORDS SUMMARY | 2022-01-21 13:50 | XMS_ITS | Encounter Summary ---
:1945 Author Organization [facility] Address [address] [place] [address] Care Team Providers Name Role Phone Unavailable Primary Care Provider Unavailable Encounter Details Date Type Department Care Team Description 07/31/2015 Hospital Encounter HX [facility] Gail Ruiz M.D. [phone] [place] [phone] (Wo rk) Social History Tobacco Use [...] Summary-Paper Based CODING DATE: 08/06/2015 FINAL [facility] STATUS: * Discharged to Home [...] WARD Date Saved: 08/06/2015 02:36 pm [facility] [employer] Document Id: [id number] documented in this encounter Plan of Treatment Upcoming Encounters Date Type Specialty Care Team Description 01/22/2022 Office Visit Cardiovascular Disease Maritza Currie M.D. [address] [place] [phone] (Wo rk) documented as of this encounter Visit Diagnoses Not on filedocumented in this encounter Additional Health Concerns Assessment Noted Time PHQ-9 Depression Total Score: 7 06/21/2014 9:20 AM CDT documented as of this encounter
--- OUTSIDE RECORDS SUMMARY | 2022-01-21 13:50 | XMS_ITS | Encounter Summary ---
:1945 Author Organization [facility] Address [address] [place] [address] Care Team Providers Name Role Phone Unavailable Primary Care Provider Unavailable Encounter Details Date Type Department Care Team Description 01/04/2015 Hospital Encounter HX [facility] Gail Cortez M.D. [address] [place] [phone] (Wo rk) Social History Tobacco Use [...] 158 cm (5' 2.21) 01/04/2015 11:13 AM FREIGHT BREAKER Body Mass Index - - documented in this encounter Medications at Time of Discharge Medication Sig Dispensed Refills Start Date End Date ASPIRIN ORAL Take 81 mg by mouth daily. Take 0 11/13/2021 with food [employer]. documented as of this encounter Procedure Notes Andrea Malhotra RFelecia. - 01/04/2015 1:32 PM CST Capillary Blood Glucose Point of Care Capillary Blood Glucose Point of Care Entered On: 01/04/2015 13:33 FREIGHT BREAKER Performed On: 01/04/2015 13:32 FREIGHT BREAKER by ANDREA MALHOTRA RN Blood Glucose Blood Glucose Testing Reason : Other: post- stress test - patient took own blood sugar after eating snack of juice and sandwich. Stated that she felt fine. Glucose Point Of Care : 99 mg/dL ANDREA MALHOTRA RN - 01/04/2015 13:32 FREIGHT BREAKER Source: [facility] Document Id: [id number] FREIGHT BREAKER!4 GHT BREAKER Andrea Malhotra R.N. - 01/04/2015 1:10 PM CST Peripheral IV Peripheral IV Entered On: 01/04/2015 13:32 FREIGHT BREAKER Performed On: 01/04/2015 13:10 FREIGHT BREAKER by ANDREA MALHOTRA RN Peripheral IV Peripheral IV Assess/Intervention Grid Peripheral IV #1 Peripheral IV #2 IV Activity : Start Discontinue Removal : Catheter intact Number of Attempts : 1 Date of Insertion : 01/04/2015 FREIGHT BREAKER IV Site : Hand Laterality : Left Catheter Size : 22 Catheter Type : Protective Site Condition : No complications Drainage Description : Bloody Infiltration Score : 0 Phlebitis Score : 0 ANDREA MALHOTRA RN - 01/04/2015 13:31 FREIGHT BREAKER ANDREA MALHOTRA RN - 01/04/2015 13:31 FREIGHT BREAKER Source: [employer] Document Id: [id number] FREIGHT BREAKER!18 GHT BREAKER Andrea Malhotra R.N. - 01/04/2015 1:00 PM CST Capillary Blood Glucose Point of Care Capillary Blood Glucose Point of Care Entered On: 01/04/2015 13:10 FREIGHT BREAKER Performed On: 01/04/2015 13:00 FREIGHT BREAKER by ANDREA MALHOTRA RN Blood Glucose Blood Glucose Testing Reason : Other: after stress echo Glucose Point Of Care : 94 mg/dL Blood Glucose Stick Site : Finger Blood Glucose Interventions : Administered food/juice ANDREA MALHOTRA RN - 01/04/2015 13:10 FREIGHT BREAKER Source: [facility] [employer] Document Id: [id number] FREIGHT BREAKER!6 GHT BREAKER Andrea Malhotra R.N. - 01/04/2015 12:20 PM CST Peripheral IV Peripheral IV Entered On: 01/04/2015 13:31 FREIGHT BREAKER Performed On: 01/04/2015 12:20 FREIGHT BREAKER by ANDREA MALHOTRA RN Peripheral IV Peripheral IV Assess/Intervention Grid Peripheral IV #1 IV Activity : Start Number of Attempts : 1 Date of Insertion : 01/04/2015 FREIGHT BREAKER IV Site : Hand Laterality : Left Catheter Size : 22 Catheter Type : Protective Site Condition : No complications ANDREA MALHOTRA RN - 01/04/2015 13:30 FREIGHT BREAKER Source: [employer] Document Id: [id number] FREIGHT BREAKER!12 GHT BREAKER Annie Jones R.N. - 01/04/2015 11:45 AM CST Capillary Blood Glucose Point of Care Capillary Blood Glucose Point of Care Entered On: 01/04/2015 11:47 FREIGHT BREAKER Performed On: 01/04/2015 11:45 FREIGHT BREAKER by ANNIE JONES RN Blood Glucose Blood Glucose Testing Reason : Routine Glucose Point Of Care : 112 mg/dL (Comment: Done prior to stress echo per protocol. Pt had light breakfast, denies sx will recheck after echo [ANNIE JONES RN - 01/04/2015 11:45 FREIGHT BREAKER] ) Blood Glucose Stick Site : Finger ANNIE JONES RN - 01/04/2015 11:45 FREIGHT BREAKER Source: [employer] Document Id: [id number] FREIGHT BREAKER!5 GHT BREAKER Simona Yan M.D. - 01/04/2015 12:00 AM [...] YAN MD On: 01/04/2015 03:16 PM Source: [facility] MHSDOLBEYNONRADSYS Document Id: [id number] GHT BREAKER documented in this encounter Miscellaneous Notes Miscellaneous - Andrea Malhotra R.N. - 01/05/2015 9:57 AM CST *General Message Document Contains Addenda Addendum by GAIL VILLAR MD on 05 January 2015 14:18:23 FREIGHT BREAKER From: GAIL VILLAR MD To: [place] Cardiology Nurse; Sent: 01/05/2015 14:18:23 FREIGHT BREAKER Subject: RE: *General Message I reviewed the results. Could we please get patient scheduled with cardiology? I will put in the referral. THanksGail From: ANDREA MALHOTRA RN ([place] Cardiology Nurse) To: GAIL VILLAR MD; Sent: 01/05/2015 09:57:02 FREIGHT BREAKER Subject: *General Message Hi Marcial Strange had her stress echocardiogram done yesterday. The results are available foryou to review. She does not have a follow-up appt. scheduled with you. Thanks- Angie Source: [facility] POWERCHART Document Id: [id number] Miscellaneous - Conversion, Historical Provider Ser - 01/04/2015 11:59 PM FREIGHT BREAKER Coding Summary-Paper Based CODING DATE: 01/25/2015 FINAL [facility] STATUS: * Discharged to [...] CHAN Date Saved: 01/25/2015 07:10 am Source: [employer] Document Id: [id number] documented in this encounter Plan of Treatment Upcoming Encounters Date Type Specialty Care Team Description 01/22/2022 Office Visit Cardiovascular Disease Maritza Currie M.D. [address] [place] [phone] (Wo rk) documented as of this encounter Procedures Procedure Name Priority Date/Time Associated Diagnosis Comme nts GLUCOSE POCT, B Routine 01/04/2015 1:33 PM Result s for this FREIGHT BREAKER procedure are i n the results section. GLUCOSE POCT, B Routine 01/04/2015 1:10 PM Result s for this FREIGHT BREAKER procedure are i n the results section. GLUCOSE POCT, B Routine 01/04/2015 12:56 PM Resul ts for this FREIGHT BREAKER procedure are i n the results section. GLUCOSE POCT, B Routine 01/04/2015 11:47 AM Resul ts for this FREIGHT BREAKER procedure are i n the results section. GLUCOSE POCT, B Routine 01/04/2015 11:41 AM Resul ts for this FREIGHT BREAKER procedure are i n the results section. documented in this encounter Results Glucose, POCT (01/04/2015 1:33 PM FREIGHT BREAKER) P athologist Signature Glucose, POCT, 99 MGDL POWERCHART B Specimen (Source) Anatomical Collection Method Collection Time Re ceived Time Location / / Volume Laterality 01/04/2015 1:33 PM FREIGHT BREAKER Historical Provider LAB POCT ORDERABLES-MANUAL Performing Organization Address City/[facility]/ZIP Code Phon e Number POWERCHART Glucose, POCT (01/04/2015 1:10 PM FREIGHT BREAKER) P athologist Signature Glucose, POCT, 94 MGDL POWERCHART B Specimen (Source) Anatomical Collection Method Collection Time Re ceived Time Location / / Volume Laterality 01/04/2015 1:10 PM FREIGHT BREAKER Historical Provider LAB POCT ORDERABLES-MANUAL Performing Organization Address [facility] Phon e Number POWERCHART Glucose, POCT (01/04/2015 12:56 PM FREIGHT BREAKER) P athologist Signature Glucose, POCT, 94 70 - 139 POWERCHART B MGDL Comment: Manual Result Entry required as Clinic Meter used in Hospital setting so results will no cross interface through RALS. Performing Location: [facility] [address] [place] [address] Specimen Anatomical Collection Method Collection Time Receive d Time (Source) Location / / Volume Laterality Blood 01/04/2015 12:56 01/04/2015 3:45 PM FREIGHT BREAKER PM FREIGHT BREAKER Gail Haas M.D. LAB POCT ORDERABLES-MAN UAL Performing Organization Address [facility] Phon e Number POWERCHART Glucose, POCT (01/04/2015 11:47 AM FREIGHT BREAKER) P athologist Signature Glucose, POCT, 112 MGDL POWERCHART B Specimen (Source) Anatomical Collection Method Collection Time Re ceived Time Location / / Volume Laterality 01/04/2015 11:47 AM FREIGHT BREAKER Narrative POWERCHART - 01/04/2015 11:47 AM FREIGHT BREAKER {\rtf1\ansi\lmvkjof5205\deff0\nlbkzwe1685{\fonttbl{\f0\fnil\fcharset0 Segoe UI;}} \viewkind4\uc1\pard\f0\fs20 ??Done prior to stress echo per protocol. Pt had light breakfast, denies sx ??will recheck after echo\par } Historical Provider LAB POCT ORDERABLES-MANUAL Performing Organization Address City/[facility] Code Phon e Number POWERCHART Glucose, POCT (01/04/2015 11:41 AM FREIGHT BREAKER) P athologist Signature Glucose, POCT, 112 70 - 139 POWERCHART B MGDL Comment: Manual Result Entry Required as Clinic Meter used in Hospital Setting so results will not cross interface through RALS. Performing Location: [facility] [address] [place] [address] Specimen Anatomical Collection Method Collection Time Receive d Time (Source) Location / / Volume Laterality Blood 01/04/2015 11:41 01/04/2015 3:41 AM FREIGHT BREAKER PM FREIGHT BREAKER Gail Haas M.D. LAB POCT ORDERABLES-[place] UAL Performing Organization Address City/State/ZIP Code Phon e Number POWERCHART documented in this encounter Visit Diagnoses Not on filedocumented in this encounter Additional Health Concerns Assessment Noted Time PHQ-9 Depression Total Score: 7 06/21/2014 9:20 AM CDT documented as of this encounter
--- OUTSIDE RECORDS SUMMARY | 2022-01-21 13:51 | XMS_ITS | Encounter Summary ---
:1945 Author Organization [facility] Address [address] [place] [address] Care Team Providers Name Role Phone Unavailable Primary Care Provider Unavailable Encounter Details Date Type Department Care Team Description 06/07/2013 Hospital Encounter [facility] Nicki Holt, MAL, C.N.P., D. N.P. [address] [place] [phone] (Wo rk) Social History Tobacco [...] mouth daily. Take 0 11/13/2021 with food [employer]. documented as of this encounter Nursing Notes Rogers Steiner - 06/07/2013 2:39 PM CDT Brush Worker Intake (Adult) Brush Worker Intake (Adult) Entered On: 06/07/2013 14:47 CDT Performed On: 06/07/2013 14:39 CDT by ROGERS STEINER life skills trainer Program Type : Post Program Diabetes Referring Provider : NICKI HOLT DNP, CLINICAL TRIALS ASSISTANT Special needs : None Method Used for [...] STEINER RN - 06/07/2013 14:39 CDT Source: [employer] POWERCHART Document Id: [id number] CDT!24 documented in this encounter Plan of Treatment Upcoming Encounters Date Type Specialty Care Team Description 01/22/2022 Office Visit Cardiovascular Disease Maritza Currie M.D. [address] [place], [place] [phone] (Wo rk) documented as of this encounter Visit Diagnoses Not on filedocumented in this encounter Additional Health Concerns Assessment Noted Time PHQ-9 Depression Total Score: 1 06/01/2013 1:42 PM CDT documented as of this encounter
--- OUTSIDE RECORDS SUMMARY | 2022-01-21 13:51 | XMS_ITS | Encounter Summary ---
:1945 Author Organization [facility] Address [address] [place] [address] Care Team Providers Name Role Phone Unavailable Primary Care Provider Unavailable Encounter Details Date Type Department Care Team Description 12/30/2012 Hospital Encounter HX [facility] Nicki Anthony, MAL, C.N.P., D.N.P. [address] [place], [place] [phone] ([place]) Social History [...] daily. Take 0 11/13/2021 with food for [employer]. documented as of this encounter Plan of Treatment Upcoming Encounters Date Type Specialty Care Team Description 01/22/2022 Office Visit Cardiovascular Disease Maritza Currie M.D. [address] [place], [place] [phone] (Wo rk) documented as of this encounter Procedures Procedure Name Priority Date/Time Associated Diagnosis Comme nts THYROID-STIMULATING Routine 12/30/2012 9:04 AM Re sults for this HORMONE-SENSITIVE VETERINARY ASSISTANT procedure are in (S-TSH) the results section. documented in this encounter Results Thyroid-Stimulating Hormone-Sensitive (s-TSH) (12/30/2012 9:04 AM VETERINARY ASSISTANT) P athologist Signature TSH 4.06 0.30 - 5.00 POWERCHART (Thyrotropin) MCIUML Specimen (Source) Anatomical Collection Method Collection Time Re ceived Time Location / / Volume Laterality Blood 12/30/2012 9:04 AM VETERINARY ASSISTANT Nicki Anthony APRN, C.N.P., D.N.P. LAB BLOOD ADD- ON Performing Organization Address City/State/ZIP Code Phon e Number POWERCHART documented in this encounter Visit Diagnoses Not on filedocumented in this encounter
--- OUTSIDE RECORDS SUMMARY | 2022-01-21 13:51 | XMS_ITS | Encounter Summary ---
:1945 Author Organization [facility] Address [address] [place] [address] Care Team Providers Name Role Phone Unavailable Primary Care Provider Unavailable Encounter Details Date Type Department Care Team Description 12/14/2013 Hospital Encounter [facility] Nicki Holt, MAL, C.N.P., D.N.P. [address] [place], [place] [phone] (Wo rk) Social History [...] Letter 16 December 2013 ARCHIE BAZAN [address] [place] [id number] Dear ARCHIE BAZAN, Your kidney function, electrolytes [...] 7.49 05/26/2013 - <=5.6 Sincerely, NICKI HOLT [address] [address] Electronic Signature Electronically Signed By: NICKI HOLT DNP, SAFE AND VAULT INSTALLER On: 16 December 2013 This document has images extracted. Source: [facility] POWERCHART Document Id: [id number] documented in this encounter Plan of Treatment Upcoming Encounters Date Type Specialty Care Team Description 01/22/2022 Office Visit Cardiovascular Disease Maritza Currie M.D. [address] [place] [phone] (Wo rk) documented as of [...]
--- OUTSIDE RECORDS SUMMARY | 2022-01-21 13:51 | XMS_ITS | Encounter Summary ---
:1945 Author Organization [facility] Address [address] [place] [address] Care Team Providers Name Role Phone Unavailable Primary Care Provider Unavailable Encounter Details Date Type Department Care Team Description 03/13/2014 Hospital Encounter [facility] Nicki Holt, MAL, C.N.P., D.N.P. [address] [place], [place] [phone] (Wo rk) Social History [...] 158 cm (5' 2.21) 03/13/2014 8:22 AM WEB DEVELOPMENT MANAGER Body Mass Index - - documented in this encounter Medications at Time of Discharge Medication Sig Dispensed Refills Start Date End Date ASPIRIN ORAL Take 81 mg by mouth daily. Take 0 11/13/2021 with food for heart health. documented as of this encounter Miscellaneous Notes Miscellaneous - Conversion, Historical Provider Ser - 03/13/2014 11:59 PM WEB DEVELOPMENT MANAGER Coding Summary-Paper Based CODING DATE: 03/16/2014 FINAL [facility] STATUS: * Discharged to Home [...] SIMON Date Saved: 03/16/2014 02:39 pm Source: [facility] [employer] Document Id: [id number] Miscellaneous - Nicki Holt D.N.P., C.N.P. - 03/13/2014 10:31 AM WEB DEVELOPMENT MANAGER Normal Results Letter 13 March 2014 ARCHIE BAZAN [address] [place] [id number] Dear ARCHIE BAZAN, Better, but we can [...] 8.3 12/12/2013 - <=5.6 Sincerely, NICKI HOLT [address] [address] Electronic Signature Electronically Signed By: NICKI HOLT DNP, TORCH BRAZER On: 13 March 2014 This document has images extracted. Source: [facility] [employer] Document Id: [id number] Electronically signed by Sae [facility] Piano Machine Operator [id number] at 07/13/2016 1:27 PM CDT documented in this encounter Plan of Treatment Upcoming Encounters Date Type Specialty Care Team Description 01/22/2022 Office Visit Cardiovascular Disease Maritza Currie M.D. [address] [place], [place] [phone] (Wo rk) documented as of this encounter Procedures Procedure Name Priority Date/Time Associated Diagnosis Comme nts HEMOGLOBIN A1C, B Routine 03/13/2014 9:03 AM Resu lts for this WEB DEVELOPMENT MANAGER procedure are i n the results section. documented in this encounter Results (ABNORMAL) Hemoglobin A1c (03/13/2014 9:03 AM WEB DEVELOPMENT MANAGER) P athologist Signature Hemoglobin A1c, 7.6 (H) <=5.6 A1C POWERCHART B Specimen (Source) Anatomical Collection Method Collection Time Re ceived Time Location / / Volume Laterality Blood 03/13/2014 9:03 AM WEB DEVELOPMENT MANAGER Nicki Holt APRN, C.N.P., D.N.P. LAB BLOOD ADD- ON Performing Organization Address City/State/ZIP Code Phon e Number POWERCHART documented in this encounter Visit Diagnoses Not on filedocumented in this encounter Additional Health Concerns Assessment Noted Time PHQ-9 Depression Total Score: 1 06/01/2013 1:42 PM CDT documented as of this encounter
--- OUTSIDE RECORDS SUMMARY | 2022-01-21 13:51 | XMS_ITS | Encounter Summary ---
:1945 Author Organization [facility] Address [address] [place] [address] Care Team Providers Name Role Phone Unavailable Primary Care Provider Unavailable Encounter Details Date Type Department Care Team Description 05/04/2013 Hospital Encounter [facility] Asha Ramon, MAL, C.N.P., D. N.P. [address] [place], [place] [phone] ([place]) Social History [...] Cardiovascular Disease Maritza Currie M.D. [address] [place], [place] [phone] ([place]) documented as of this encounter Visit Diagnoses Not on filedocumented in this encounter
--- OUTSIDE RECORDS SUMMARY | 2022-01-21 13:51 | XMS_ITS | Encounter Summary ---
:1945 Author Organization [facility] Address [address] [place] [address] Care Team Providers Name Role Phone Unavailable Primary Care Provider Unavailable Encounter Details Date Type Department Care Team Description 06/26/2014 Hospital Encounter [facility] Nicki Holt, MAL, C.N.P., D.N.P. [address] [place], [place] [phone] (Wo rk) Social History [...] Miscellaneous - Nicki Holt, Maritza.N.P., C.N.P. - 06/27/2014 11:42 AM CDT Normal Results Letter 27 Jun 2014 ARCHIE BAZAN [address] [place] [id number] Dear ARCHIE BAZAN, I am pleased to report that your stool test was negative for blood (normal results!!!)!!!!! I hope you are doing well and enjoying some warmer weather! (Thinking of you every time I put my girl to bed with her butterfly blanket!!!!!!!!!!) Take care! Result Name Current Result Normal Range FIT/Fecal Occult Bld-Hart Negative 06/25/2014 Negative - Sincerely, NICKI HOLT [address] [place] [address] Electronic Signature Electronically Signed By: NICKI HOLT DNP, SOFTWARE QUALITY AUTOMATION ENGINEER On: 27 Jun 2014 This document has images extracted. Source: [employer] Document Id: [id number] Electronically signed by Conversion, [facility] Factory Supervisor [id number] at 07/13/2016 7:01 PM CDT Miscellaneous - Conversion, Historical Provider Ser - 06/26/2014 11:59 PM CDT Coding Summary-Paper Based CODING DATE: 07/06/2014 FINAL [facility] STATUS: * Discharged to Home [...] Revised Date Saved: 07/06/2014 08:07 am Source: [employer] Document Id: [id number] documented in this encounter Plan of Treatment Upcoming Encounters Date Type Specialty Care Team Description 01/22/2022 Office Visit Cardiovascular Disease Maritza Currie M.D. [address] [place] [phone] (Wo rk) documented as of [...] tect upper gastrointestinal bleeding; the HemoQuant test (9320)should be ordered if clinically indicated. Test Performed by: [place] [address] Delivery Stock Clerk: Pradeep Parikh II, M.D., Ph.D. Specimen (Source) [...]
--- OUTSIDE RECORDS SUMMARY | 2022-01-21 13:51 | XMS_ITS | Encounter Summary ---
:1945 Author Organization [facility] Address [address] [place] [address] Care Team Providers Name Role Phone Unavailable Primary Care Provider Unavailable Encounter Details Date Type Department Care Team Description 07/24/2014 Hospital Encounter [facility] [address] [place] [phone] (Wo rk) Social History Tobacco Use [...] Coding Summary-Paper Based CODING DATE: 08/07/2014 FINAL [facility] STATUS: * Discharged to Home or [...] CHAN Date Saved: 08/07/2014 04:04 pm Source: [employer] Document Id: [id number] Miscellaneous - Gail Cortez M.D. - 07/07/2014 [...] again today. From: GAIL VILLAR MD To: [place] Family Medicine Nurse [place]; Sent: 07/07/2014 13:59:58 [...] or sooner if she wants to reschedule. ThanksGail Source: [employer] Document Id: [id number] Electronically signed by Conversion, [facility] Cupola Charger [id number] at 07/14/2016 2:50 PM CDT documented in this encounter Plan of Treatment Upcoming Encounters Date Type Specialty Care Team Description 01/22/2022 Office Visit Cardiovascular Disease Maritza Currie M.D. [address] [place], [place] [phone] (Wo rk) documented as of this encounter Visit Diagnoses Not on filedocumented in this encounter Additional Health Concerns Assessment Noted Time PHQ-9 Depression Total Score: 7 06/21/2014 9:20 AM CDT documented as of this encounter
--- OUTSIDE RECORDS SUMMARY | 2022-01-21 13:51 | XMS_ITS | Encounter Summary ---
:1945 Author Organization [facility] Address [address] [place] [address] Care Team Providers Name Role Phone Unavailable Primary Care Provider Unavailable Encounter Details Date Type Department Care Team Description 05/26/2013 Hospital Encounter HX [facility] Nicki Holt, MAL, C.N.P., D.N.P. [address] [place], [place] [phone] (Wo rk) Social History [...] Provider Ser - 05/26/2013 8:35 AM CDT [id number] HEALTH AND WELLNESS COACHING REFERRAL SOURCE Nicki Holt DNP Patient was seen in [facility] on 05/26/2013 for a followup wellness [...] ANNIE PÉREZ On: 06/02/2013 11:53 AM Source: [facility] MHSDOLBEYNPERRY Document Id: [id number] documented in this encounter Miscellaneous Notes Miscellaneous - Nicki Holt D.N.P., C.N.P. - 05/26/2013 2:37 PM CDT Normal Results Letter 26 May 2013 ARCHIE BAZAN [address] [place] [id number] Dear ARCHIE BAZAN, Result Name Current Result Previous Result Normal Range Hgb A1c (%) (H) 7.49 05/26/2013 (H) 7.46 02/07/2013 4.00 - 6.00 Sincerely, NICKI HOLT [address] [place] [address] Electronic Signature Electronically Signed By: NICKI HOLT DNP, INSPECTOR CONVEYOR LINE On: 26 May 2013 This document has images extracted. Source: [facility] POWERCHART Document Id: [id number] Electronically signed by Conversion, [facility] Labor Relations Specialist [id number] at 07/15/2016 9:21 AM CDT documented in this encounter Plan of Treatment Upcoming Encounters Date Type Specialty Care Team Description 01/22/2022 Office Visit Cardiovascular Disease Maritza Currie M.D. [address] [place] [phone] (Wo rk) documented as of [...] Blood 05/26/2013 8:47 AM CDT Nicki Holt HUMAN RESOURCES CLERK, C.N.P., D.N.P. LAB BLOOD ADD- ON Performing Organization Address City/State/ZIP Code Phon e Number POWERCHART documented in this encounter Visit Diagnoses Not on filedocumented in this encounter
--- OUTSIDE RECORDS SUMMARY | 2022-01-21 13:51 | XMS_ITS | Encounter Summary ---
:1945 Author Organization [facility] Address [address] [place] [address] Care Team Providers Name Role Phone Unavailable Primary Care Provider Unavailable Encounter Details Date Type Department Care Team Description 01/27/2013 Hospital Encounter HX [facility] Nicki Holt, MAL, C.N.P., D. N.P. [address] [place] [address] (Wo rk) Social History Tobacco [...] Provider Ser - 01/27/2013 2:16 PM CST [id number] HEALTH AND WELLNESS COACHING Patient was seen at [facility] in [place] on 01/27/2013 for followup wellness coaching visit [...] into her wellness routine. Annie Pérez/[facility] Electronically Signed By: ANNIE PÉREZ On: 02/01/2013 01:47 PM Source: [facility] MHSDOLBEYNONRADSYS Document Id: [id number] documented in this encounter Miscellaneous Notes Miscellaneous - Nicki Holt D.N.P., C.N.P. - 02/11/2013 4:13 PM WEBSPHERE CONSULTANT Results Notification Document Contains Addenda Addendum by NICKI HOLT DNP, FNP on 15 February 2013 15:56:41 WEBSPHERE CONSULTANT noted Addendum by VITALIY VILLEDA LPN on 15 February 2013 09:25:17 WEBSPHERE CONSULTANT From: VITALIY VILLEDA LPN To: NICKI HOLT DNP, FNP; Sent: 02/15/2013 09:25:17 WEBSPHERE CONSULTANT Show up: 02/15/2013 09:24:00 WEBSPHERE CONSULTANT Subject: RE: Results Notification Spoke with Marcial, , feeling better, not quit so tired. Still see's blood in urine off/on. Encouraged patient to make f/u appt with Nicki in 6-8wks. States, okay Addendum by VITALIY VILLEDA LPN on 14 February 2013 14:48:07 WEBSPHERE CONSULTANT Left message to return call. From: NICKI HOTL DNP, FNP To: VITALIY VILLEDA LPN; Sent: 02/11/2013 16:13:23 WEBSPHERE CONSULTANT ! Show up: 02/11/2013 22:13:23 [facility] Subject: Results Notification Actions: Notify patient of results Reminder Comments: please call pt. with results, contaminated specimen. thank you. Results: Date Result Type Ind Result Name MBO Review Culture Urine Source: [facility] POWERCHART Document Id: [id number] Electronically signed by Conversion, [facility] Water Resources Engineer [id number] at 07/16/2016 3:10 PM CDT documented in this encounter Plan of Treatment Upcoming Encounters Date Type Specialty Care Team Description 01/22/2022 Office Visit Cardiovascular Disease Maritza Currie M.D. [address] [place], [place] [phone] (Wo rk) documented as of this encounter Procedures Procedure Name Priority Date/Time Associated Diagnosis Comme nts BACTERIAL CULTURE, Routine 02/07/2013 10:00 AM Re sults for this AEROBIC, URINE WEBSPHERE CONSULTANT procedure are in the results section. documented in this encounter Results Bacterial Culture, Aerobic, Urine (02/07/2013 10:00 AM WEBSPHERE CONSULTANT) [facility] Method Time Signature Bacterial POWERCHART Culture, Aerobic, Urine HXPre No growth at 1 POWERCHART day. HXPre Continuing POWERCHART incubation HXPre GNR POWERCHART Comment: >100,000 cfu/mL Gram Negative Rods Identification and susceptibility to fol low. HXPre No growth at 1 day. POWERCHART HXPre Laboratory Error. [facility] 02/08/2013 14:09:15 POWERCHART HXPre (*) Gram Negative Rods reported previously has been POWERCHART removed from the report. HXPre (*) Previous positive report issued in error. Error due to POWERCHART Laboratory Error. [facility] 02/08/2013 14:09:38. HXFinal >3 organisms present - probable contamination, suggest POWERCHART repeat culture. HXFinal No further work-up. POWERCHART HXFinal (*) Gram Negative Rods reported previously has been POWERCHART removed from the report. HXFinal (*) Previous positive report issued in error. Error due to POWERCHART Laboratory Error. [facility] 02/08/2013 14:09:38. Specimen (Source) Anatomical Collection Method Collection Time Re ceived Time Location / / Volume Laterality Urine, Clean 02/07/2013 10:00 Catch AM WEBSPHERE CONSULTANT Nicki Holt APRN, C.N.P., D.N.P. LAB MICROBIOLO GY - GENERAL ORDERABLES Performing Organization Address City/State/ZIP Code Phon e Number POWERCHART documented in this encounter Visit Diagnoses Not on filedocumented in this encounter
--- OUTSIDE RECORDS SUMMARY | 2022-01-21 13:51 | XMS_ITS | Encounter Summary ---
:1945 Author Organization [facility] Address [address] [place] [address] Care Team Providers Name Role Phone Unavailable Primary Care Provider Unavailable Encounter Details Date Type Department Care Team Description 04/07/2013 Hospital Encounter HX [facility] Nicki Holt APRN, C.N.P., D.N.P. [address] [place], [place] [phone] (Wo rk) Social History [...] mouth daily. Take 0 11/13/2021 with food [employer]. documented as of this encounter Miscellaneous Notes Miscellaneous - Nicki Holt, Maritza.N.PJairo, C.N.P. - 04/07/2013 11:17 AM HEATER TENDER Results Notification Document Contains Addenda Addendum by VITALIY VILLEDA LPN on 07 April 2013 12:31:54 HEATER TENDER Spoke with Malik regarding below results. Addendum by VITALIY VILLEDA LPN on 07 April 2013 11:26:14 HEATER TENDER Left message to return call. From: NICKI HOLT DNP, DEPARTMENT EDITOR Sent: 04/07/2013 11:17:42 HEATER TENDER ! Show up: 04/07/2013 11:17:42 HEATER TENDER Subject: Results Notification Actions: Notify patient of [...] TSH 2.54 mcIU/mL (0.30 - 5.00) Source: [facility] POWERCHART Document Id: [id number] Electronically signed by Conversion, [facility] C D Area Supervisor [id number] at 07/14/2016 11:11 PM CDT documented in this encounter Plan of Treatment Upcoming Encounters Date Type Specialty Care Team Description 01/22/2022 Office Visit Cardiovascular Disease Maritza Currie M.D. [address] [place], [place] [phone] (Wo rk) documented as of this encounter Procedures Procedure Name Priority Date/Time Associated Comments Diagnosis URINALYSIS, ROUTINE Routine 04/07/2013 10:11 Resu lts for this AM HEATER TENDER procedure are i n the results section. URINE MICROSCOPIC Routine 04/07/2013 10:11 Result s for this AM HEATER TENDER procedure are i n the results section. THYROID-STIMULATING Routine 04/07/2013 9:40 AM Re sults for this HORMONE-SENSITIVE HEATER TENDER procedure are in (S-TSH) the results section. documented in this encounter Results Urine Microscopic (04/07/2013 10:11 AM HEATER TENDER) [facility] Method Time Signature HXUr WBC 1-3 POWERCHART Red Blood Cell Negative 0 - 2 POWERCHART Clump, Urine HXUr Epithelial Occasional POWERCHART Comment: occasional squamous epis seen Specimen Anatomical Collection Method Collection Time Receive d Time (Source) Location / / Volume Laterality Urine 04/07/2013 10:11 04/07/2013 AM HEATER TENDER 10:11 AM HEATER TENDER Nicki Holt APRN, C.N.P., D.N.P. LAB URINE ORDE SALEEM Performing Organization Address City/[facility] Code Phon e Number POWERCHART Urinalysis, Routine (04/07/2013 10:11 AM HEATER TENDER) [facility] Method Time Signature HXUr Color Yellow Yellow POWERCHART Appearance Clear Clear POWERCHART Glucose Trace Negative POWERCHART HXBILIRUBIN Negative Negative POWERCHART Ketones, QL(U) Negative Negative POWERCHART Specific 1.015 1.000 - POWERCHART [place], POCT, U 1.030 pH, POCT, Urine 5.5 5.0 - 8.0 POWERCHART Protein, Ur, Dip Negative Negative POWERCHART Urobilinogen 0.2 POWERCHART HXNITRITE Negative Negative POWERCHART HXBLOOD Trace-lysed POWERCHART Leukocyte 1+ Negative POWERCHART Esterase Source Clean Void POWERCHART Urine Specimen (Source) Anatomical Collection Method Collection Time Re ceived Time Location / / Volume Laterality Urine 04/07/2013 10:11 AM HEATER TENDER Nicki Holt APRN, C.N.P., D.N.P. LAB URINE ORDSingh MONGE Performing Organization Address [facility] Code Phon e Number POWERCHART Thyroid-Stimulating Hormone-Sensitive (s-TSH) (04/07/2013 9:40 AM HEATER TENDER) P athologist Signature TSH 2.54 0.30 - 5.00 POWERCHART (Thyrotropin) MCIUML Specimen (Source) Anatomical Collection Method Collection Time Re ceived Time Location / / Volume Laterality Blood 04/07/2013 9:40 AM HEATER TENDER Nicki Holt APRN, C.N.P., D.N.P. LAB BLOOD ADD- ON Performing Organization Address City/State/ZIP Code Phon e Number POWERCHART documented in this encounter Visit Diagnoses Not on filedocumented in this encounter
--- OUTSIDE RECORDS SUMMARY | 2022-01-21 13:51 | XMS_ITS | Encounter Summary ---
:1945 Author Organization [facility] Address [address] [place] [address] Care Team Providers Name Role Phone Unavailable Primary Care Provider Unavailable Encounter Details Date Type Department Care Team Description 12/12/2013 Hospital Encounter HX [facility] FAMILY ME Vickey Holt, MAL, C.N.P., D. N.P. [address] [place] [phone] (Wo rk) Social History Tobacco [...] D.N.P., CJairoNJairoP. - 12/12/2013 8:13 AM CDT [id number] CHIEF COMPLAINT/REASON FOR VISIT Routine physical examination. HISTORY OF PRESENT ILLNESS Patient is a 68-year-old female that presents to the clinic today for a routine physical examinationand also medication renewal. She does suffer from hyperlipidemia and also type 2 diabetes mellitus in which previously in the past she has utilized a health and employee wellness/fitness coordinator that has actually been very beneficial for her helping her lose weight. She indicates that now she is no longer seeing the health and employee wellness/fitness coordinator as this is no longer a service [...] is appropriate. HEAD: Normocephalic/atraumatic. PUPILS: GENE. OROPHARYNX: Sinclair and moist. TYMPANIC MEMBRANES: Bilateral TMs are [...] DNP, FNP On: 12/13/2013 01:12 PM Source: [facility] MHSDOLBEYNONRADSYS Document Id: [id number] documented in this encounter Miscellaneous Notes Miscellaneous [...] She will be notified when complete. Source: [facility] POWERCHART Document Id: [id number] Miscellaneous - Vickey Holt, Maritza.N.P., C.N.P. - 12/12/2013 12:17 PM CDT Ambulatory Patient Summary [address] [id number] Visit Information Name: MARCIAL BAZAN [facility] Number: [id number] Current Date: 12/12/2013 12:17:14 [...] a day for thyroid replacement Routed to [address] [address] metFORMIN (metFORMIN 500 mg oral tablet) 2 Tablet(s), Oral, two times a day with meals This is a CHANGE Routed to [address] [address] simvastatin (simvastatin 10 mg oral tablet) 1 Tablet(s), Oral, once a day (at bedtime) Take for highcholesterol. Routed to [address] [address] Stop Taking the Following Medications: Medication list [...] emergency. Electronically Signed By: VICKEY HOLT DNP, PHOTO MANAGER Signed On:12-DEC-2013 09:26:03 Your Allergies & Intolerances [...] Appointments Date Time Location Provider 03/13/2014 08:45 [facility] Family Med Gail Gabriel MD Attention: Contact your local Clinic if further appointment detail needed. Your Goals/Additional instructions: Source: [facility] POWERCHART Document Id: [id number] Miscellaneous - Vickey Holt D.N.P., C.N.P. - 12/12/2013 12:17 PM CDT Ambulatory Discharge Medication List [address] [id number] Visit Information Name: MARCIAL BAZAN [facility] Number: [id number] Visit Date: 12/12/2013 12:17:11 [...] a day for thyroid replacement Routed to [address] [address] metFORMIN (metFORMIN 500 mg oral tablet) 2 Tablet(s), Oral, two times a day with meals This is a CHANGE Routed to [address] [place] [address] simvastatin (simvastatin 10 mg oral tablet) 1 Tablet(s), Oral, once a day (at bedtime) Take for highcholesterol. Routed to [address] [address] Stop Taking the Following Medications: Medication list [...] FNP Signed On:12-DEC-2013 09:26:03 Additional Information: [facility] Document Id: [id number] Miscellaneous - Vickey Holt D.N.PJairo, C.N.P. - [...] DNP, FNP - 12/12/2013 9:08 CDT [facility] Document Id: [id number] CDT!14 Miscellaneous - Sylvia Darnell L.P.N. - [...] DARNELL LPN - 12/12/2013 8:33 CDT Source: [employer] Document Id: [id number] CDT!10 Miscellaneous - Sylvia Darnell L.P.N. - 12/12/2013 8:22 AM CDT Adult Tax Senior Associate Intake/History Adult Tax Senior Associate Intake/History Entered On: 12/12/2013 8:25 CDT Performed [...] 41.5 cm(Converted to: 16 inch(es)) SYLVIA DARNELL [facility] - 12/12/2013 8:26 CDT Chief Complaint : Pre-op for colonoscopy Height : 158 cm(Converted to: 5 ft 2 inch(es), 62 inch(es)) SYLVIA DARNELL [facility] - 12/12/2013 8:22 CDT General Info Information Given By : Patient Languages : Peruvian Is Patient Female and 13-50 no hysterectomy : No SYLVIA DARNELL [facility] 12/12/2013 8:22 CDT Subjective Pain Symptoms : No SYLVIA DARNELL [facility] 12/12/2013 8:22 CDT Dependent Habits Tobacco Use/Currently Using : No Tobacco Use/Last 12 months : No Tobacco Use/Advised to Quit : No Exposure to Tobacco Smoke : Care provider denies smoking in home Smoking Status : Never smoker SYLVIA DARNELL [facility] - 12/12/2013 8:22 CDT Tobacco Use Grid Last Use : Never ASCENCIOALEJANDRO Anderson [facility] 12/12/2013 8:22 CDT Alcohol Use : No SYLVIA DARNELL [facility] 12/12/2013 8:22 CDT Caffeine Use Grid Caffeine Use : None Frequency : Occasionally Amount : 1 cup per week ASCENCIOALEJANDRO Anderson [facility] 12/12/2013 8:22 CDT Recreational Drug Use Grid Drug Use : None SYLVIA DARNELL Justin [facility] 12/12/2013 8:22 CDT Source: [facility] Document Id: [id number] CDT!19 documented in this encounter Plan of Treatment Upcoming Encounters Date Type Specialty Care Team Description 01/22/2022 Office Visit Cardiovascular Disease Maritza Currie M.D. [address] [place] [phone] (Wo rk) documented as of this [...] Screen HPV Reflex (12/12/2013 10:12 AM CDT) [facility] gist Method Time Signature Interpretation [id number] POWERCHART HXThPrep Scrn See Comment POWERCHART [facility] Comment: A. ??ThinPrep Pap Test Screen (Cervical/ Endocervical HPV Reflex): Satisfactory for evaluation. Negative for intraepithelial lesion or m alignancy. [facility]rn [facility] See Comment [facility] Comment: Report electronically signed by BLANCA Mcgrath (ASCP) 12/20/2013 10:28 Interpreted by: BLANCA Mcgrath (ASCP) Spec [facility] See Comment POWERCHART Comment: A. ??ThinPrep Pap Test Screen (Cervical/ Endocervical HPV Reflex): Received cloudy specimen in ThinPrep via l. Test Performed by: [place] [address] [employer] Milling Machine Set Up Operator: Ronak Escobar Specimen (Source) Anatomical Collection [...] LAB URINE ORDE RABLES Performing Organization Address City/[facility]/ZIP Code Phon e Number POWERCHART Thyroid-Stimulating Hormone-Sensitive (s-TSH) (12/12/2013 9:14 AM CDT) P athologist Signature TSH 4.35 0.30 - 5.00 POWERCHART (Thyrotropin) MCIUML Specimen (Source) Anatomical Collection Method Collection Time Re ceived Time Location / / Volume Laterality Blood 12/12/2013 9:14 AM CDT Vickey Holt APRN, C.N.P., D.N.P. LAB BLOOD ADD- ON Performing Organization Address City/[facility] Code Phon e Number POWERCHART (ABNORMAL) BMP [...] POWERCHART MMOLL HXeGFR (MDRD) >60 >=60 POWERCHART [id number] eGFR >60 >=60 POWERCHART Black/ [id number] Uzbek Specimen (Source) Anatomical Collection Method Collection Time Re ceived Time Location / / Volume Laterality Blood 12/12/2013 9:14 AM CDT Vickey Holt APRN, C.N.P., D.N.P. LAB BLOOD ADD- ON Performing Organization Address City/[facility] Code Phon e Number [...]
--- OUTSIDE RECORDS SUMMARY | 2022-01-21 13:51 | XMS_ITS | Encounter Summary ---
:1945 Author Organization [facility] Address [address] [place] [address] Care Team Providers Name Role Phone Unavailable Primary Care Provider Unavailable Encounter Details Date Type Department Care Team Description 02/07/2013 Hospital Encounter [facility]X [facility] Nicki Holt, MAL, C.N.P., D.N.P. [address] [place], [place] [...] mouth daily. Take 0 11/13/2021 with food [employer] health. documented as of this encounter Miscellaneous Notes Miscellaneous - Nicki Holt, Maritza.N.P., C.N.P. - 02/07/2013 12:29 PM TELLER COORDINATOR Normal Results Letter 07 February 2013 ARCHIE BAZAN [address] [place] [id number] Dear ARCHIE BAZAN, As we discussed, your [...] 0.30 - 5.00 Sincerely, NICKI HOLT [address] [place] [address] Electronic Signature Electronically Signed By: NICKI HOLT DNP, FNP On: 07 February 2013 This document has images extracted. Source: [facility] POWERCHART Document Id: [id number] documented in this encounter Plan of Treatment Upcoming Encounters Date Type Specialty Care Team Description 01/22/2022 Office Visit Cardiovascular Disease Maritza Currie M.D. [address] [place] [phone] (Wo rk) documented as of this encounter Procedures Procedure Name Priority Date/Time Associated Comments Diagnosis URINALYSIS, ROUTINE Routine 02/07/2013 9:24 Resul ts for this AM TELLER COORDINATOR procedure are i n the results section. URINE MICROSCOPIC Routine 02/07/2013 9:24 Results for this AM TELLER COORDINATOR procedure are i n the results section. LIPID PANEL, S Routine 02/07/2013 9:21 Results fo r this AM TELLER COORDINATOR procedure are i n the results section. ALANINE AMINOTRANSFERASE Routine 02/07/2013 9:21 Results for this (ALT), S/P AM TELLER COORDINATOR procedure are i n the results section. THYROID-STIMULATING Routine 02/07/2013 9:21 Resul ts for this HORMONE-SENSITIVE AM TELLER COORDINATOR procedure are in (S-TSH) the results section. HEMOGLOBIN A1C, B Routine 02/07/2013 9:21 Results for this AM TELLER COORDINATOR procedure are i n the results section. documented in this encounter Results Urine Microscopic (02/07/2013 9:24 AM TELLER COORDINATOR) [facility] Method Time Signature HXUr WBC 4-10 POWERCHART Red Blood Cell 0-2 0 - 2 POWERCHART Clump, Urine HXUr Bacteria Few POWERCHART HXUr Epithelial Occasional POWERCHART Comment: squamous Specimen Anatomical Collection Method Collection Time Receive d Time (Source) Location / / Volume Laterality Urine 02/07/2013 9:24 AM 3 9:24 TELLER COORDINATOR AM TELLER COORDINATOR Nicki Holt APRN, C.N.P., D.N.P. LAB URINE ORDE NEREIDALES Performing Organization Address City/State/ZIP Code Phon e Number POWERCHART Urinalysis, Routine (02/07/2013 9:24 AM TELLER COORDINATOR) [facility] Method Time Signature HXUr Color Yellow Yellow POWERCHART Appearance Clear Clear POWERCHART Glucose Negative Negative POWERCHART HXBILIRUBIN Negative Negative POWERCHART Ketones, QL(U) Negative Negative POWERCHART Specific 1.020 1.000 - POWERCHART [place], POCT, U 1.030 pH, POCT, Urine 5.5 5.0 - 8.0 POWERCHART Protein, Ur, Dip Negative Negative POWERCHART Urobilinogen 0.2 POWERCHART HXNITRITE Negative Negative POWERCHART HXBLOOD 1+ Negative POWERCHART Leukocyte 2+ Negative POWERCHART Esterase Source Clean Void POWERCHART Urine Specimen (Source) Anatomical Collection Method Collection Time Re ceived Time Location / / Volume Laterality Urine 02/07/2013 9:24 AM TELLER COORDINATOR Nicki Holt APRN, C.N.P., D.N.P. LAB URINE ORDE RABLES Performing Organization Address City/State/ZIP Code Phon e Number POWERCHART (ABNORMAL) Thyroid-Stimulating Hormone-Sensitive (s-TSH) (02/07/2013 9:21 AM TELLER COORDINATOR) [facility] Time Signature TSH 6.49 (H) 0.30 - 5.00 POWERCHART (Thyrotropin) MCIUML Specimen (Source) Anatomical Collection Method Collection Time Re ceived Time Location / / Volume Laterality Blood 02/07/2013 9:21 AM TELLER COORDINATOR Nicki Holt APRN, C.N.P., D.N.P. LAB BLOOD ADD- ON Performing Organization Address City/[facility]/ZIP Code Phon e Number POWERCHART (ABNORMAL) ALT (Alanine Aminotransferase) (02/07/2013 9:21 AM TELLER COORDINATOR) athologist Signature Alanine 42 (H) 15 - 37 UL POWERCHART Amniotransferas e, LD Specimen (Source) Anatomical Collection Method Collection Time Re ceived Time Location / / Volume Laterality Blood 02/07/2013 9:21 AM TELLER COORDINATOR Nicki Holt APRN, C.N.P., D.N.P. LAB BLOOD ADD- ON Performing Organization Address City/[facility]/ZIP Code Phon e Number POWERCHART (ABNORMAL) Lipid Panel (02/07/2013 9:21 AM TELLER COORDINATOR) athologist Signature Cholesterol, 160 0 - 200 [...] / Volume Laterality Blood 02/07/2013 9:21 AM TELLER COORDINATOR Nicki Hlot APRN, C.N.P., D.N.P. LAB BLOOD ADD- ON Performing Organization Address City/State/ZIP Code Phon e Number POWERCHART (ABNORMAL) Hemoglobin A1c (02/07/2013 9:21 AM TELLER COORDINATOR) Analysis Performed At Patho logist Time Signature Hemoglobin A1c, 7.46 (H) 4.00 - POWERCHART B 6.00 Specimen (Source) Anatomical Collection Method Collection Time Re ceived Time Location / / Volume Laterality Blood 02/07/2013 9:21 AM TELLER COORDINATOR Nicki Holt APRN, C.N.P., D.N.P. LAB BLOOD ADD- ON Performing Organization Address City/State/ZIP Code Phon e Number POWERCHART documented in this encounter Visit Diagnoses Not on filedocumented in this encounter
--- OUTSIDE RECORDS SUMMARY | 2022-01-21 13:51 | XMS_ITS | Encounter Summary ---
:1945 Author Organization [facility] Address [address] [place] [address] Care Team Providers Name Role Phone Unavailable Primary Care Provider Unavailable Encounter Details Date Type Department Care Team Description 12/30/2012 Hospital Encounter HX [facility] ME Nicki Anthony, MAL, C.N.P., D. N.P. [address] [place] [address] (Wo rk) Social History Tobacco [...] daily. Take 0 11/13/2021 with food for Curbside health. documented as of this encounter Progress Notes Conversion, Historical Provider Ser - 12/30/2012 9:11 AM CST [id number] HEALTH & WELLNESS COACHING Patient was seen at [facility] in [place] on 12/30/2012 for follow-up wellness coaching visit [...] apple and almond butter, nuts or yogurt, [place] yogurt especially. She would like to a [...] and maintaining her goals. Annie Pérez/arnol cc: Nicki Anthony D.N.P./Stanislav.N.P Electronically Signed By: ANNIE PÉREZ On: 01/04/2013 10:03 AM Source: [facility] MHSDOLBEYNONRADSYS Document Id: [id number] documented in this encounter Plan of Treatment Upcoming Encounters Date Type Specialty Care Team Description 01/22/2022 Office Visit Cardiovascular Disease Maritza Currie M.D. [address] [place], [place] [phone] (Wo rk) documented as of this encounter Visit Diagnoses Not on filedocumented in this encounter
--- OUTSIDE RECORDS SUMMARY | 2022-01-21 13:51 | XMS_ITS | Encounter Summary ---
:1945 Author Organization [facility] Address [address] [place] [address] Care Team Providers Name Role Phone Unavailable Primary Care Provider Unavailable Encounter Details Date Type Department Care Team Description 06/21/2014 Hospital Encounter HX [facility] ME Nicki Anthony, MAL, C.N.P., D. N.P. [address] [place] [address] (Wo rk) Social History Tobacco [...] Milner R.N. - 06/21/2014 8:50 AM CDT [id number] Marcial is a very pleasant 69-year-old female [...] They live in their own home in [place]. She is retired. 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 They do [...] these, asking her 2 sons who are forestry pilot, to facilitate this for her. HEALTHCARE PROVIDERS AND LIST OF SUPPLIERS Her primary care provider, she is establishing care with Dr. Gail Duenaston. This is comingup within the next month. Her eye doctor is Dr. Self at [place]. She is interested in seeing an senior lead project manager this next time so I have encouraged her to schedule this appointment at [facility] with Dr. Novoa or Dr. Serrano. PRESCRIPTION REFILLS Through [facility] in [place] or the [facility] EDUCATION COUNSELING AND RECOMMENDATIONS 1. Today Marcial was given a handout from the [employer] with a list of resources available to her as well as a web site and phone number for contacting. 2. She was given a handout from [facility] on care of her feet specifically for diabetic patients. 3. The Power of Prevention educational booklet from [facility]. Page 40 of this booklet [...] her diabetic education refresher done at the [facility] as this is no longer done in [place]. 3. She describes to me some visual [...] MD On: 06/28/2014 07:38 AM Source: [facility] MHSDOLBEYNONRADSYS Document Id: [id number] documented in this encounter Procedure Notes Dianne London R.N. - 06/21/2014 9:29 AM CDT Vision Testing Vision Testing Entered On: 06/21/2014 9:37 CDT Performed On: 06/21/2014 9:29 CDT by DIANNE LONDON RN Vision Testing Corrective Lenses : Glasses Eye, Right with Correction : 20/40 Eye, Left w/Correction : 20/25 Eyes, Both with Correction : 20/20 DIANNE LONDON RN - 06/21/2014 9:29 CDT Source: [employer] Document Id: [id number] CDT!6 documented in this encounter Miscellaneous Notes Miscellaneous - Dianne London R.N. - 06/21/2014 10:28 [...] LONDON RN - 06/21/2014 10:28 CDT Source: [employer] Document Id: [id number] CDT!8 Miscellaneous - Dianne London R.N. - [...] LONDON RN - 06/21/2014 9:20 CDT Source: [employer] Document Id: [id number] CDT!13 Dianne Ireland R.N. - 06/21/2014 9:17 [...] LONDON RN - 06/21/2014 9:17 CDT Source: [employer] Document Id: [id number] CDT!10 Dianne Ireland R.N. - 06/21/2014 9:08 [...] None Behavioral Health Screen/Safety Assmt : No Episcopalian Preference : DIANNE Pace RN - 06/21/2014 9:08 CDT Advance Directive Advanced Directives : No Advance Directive Additional Information : No DIANNE LONDON RN - 06/21/2014 9:08 CDT Educ Needs Learning Style Preference Adult Grid Patient : Verbal explanation Family : None DIANNE LONDON RN - 06/21/2014 9:08 CDT Source: [employer] Document Id: [id number] CDT!39 Miscellaneous - Dianne London R.N. - 06/21/2014 8:52 AM CDT Adult Wireless Team Member Intake/History Adult Wireless Team Member Intake/History Entered On: 06/21/2014 9:08 CDT Performed [...] Information Given By : Patient Languages : Urdu Is Patient Female and 13-50 no hysterectomy [...] RN - 06/21/2014 8:52 CDT Source: [facility] POWERCHART Document Id: [id number] CDT!41 documented in this encounter Plan of Treatment Upcoming Encounters Date Type Specialty Care Team Description 01/22/2022 Office Visit Cardiovascular Disease Maritza Curire M.D. [address] [place] [phone] (Wo rk) documented as of this encounter Visit Diagnoses Not on filedocumented in this encounter Additional Health Concerns Assessment Noted Time PHQ-9 Depression Total Score: 7 06/21/2014 9:20 AM CDT documented as of this encounter
--- OUTSIDE RECORDS SUMMARY | 2022-01-21 13:51 | XMS_ITS | Encounter Summary ---
:[address] [facility] Address [address] [place] [address] Care Team Providers Name Role Phone Unavailable Primary Care Provider Unavailable Encounter Details Date Type Department Care Team Description 04/24/2014 Hospital Encounter [facility]X [facility] ME Vickey Holt, MAL, C.N.P., D. N.P. [address] [place] [address] (Wo rk) Social History Tobacco [...] this encounter Progress Notes Vickey Holt D.N.P., CJairoNJairoP. - 04/24/2014 12:58 PM CDT [id number] CHIEF COMPLAINT/REASON FOR VISIT Follow up type [...] time. She has used a health and assistant men's lacrosse coach in the past which she was [...] length with the patient, I continue to industrial relations counselor her regarding the lifestyle health and [...] Patient/Child/Caregiver expressed understanding of the content. Maritza Lucas.N.P./F.N.P/aos cc: Gail Gabriel M.D. [facility] in [place] [id number] Electronically Signed By: VICKEY HOLT DNP, FNP On: 04/25/2014 06:04 PM Source: [facility] MHSDOLBEYNONRADSYS Document Id: [id number] documented in this encounter Miscellaneous Notes Miscellaneous - Vickey Holt D.N.P., C.N.P. - 04/24/2014 2:21 PM CDT Ambulatory Patient Summary [address] [place] [id number] Visit Information Name: BENI JOSE MIGUELPATRICK PAU [facility] Number: [id number] Current Date: 04/24/2014 14:21:18 Physicians Attending Provider: VICKEY HOLT DNP, FNP Primary Care Provider: VICKEY HOLT DNP, FNP ELIDASTEVEN JOSE MIGUELPATRICK MAI has been given the [...] emergency. Electronically Signed By: VICKEY HOLT DNP, FRESH FOODS CLERK Signed On:24-APR-2014 14:21:08 Your Allergies & Intolerances [...] appointment detail needed. Your Goals/Additional instructions: Source: [facility] POWERCHART Document Id: [id number] Miscellaneous - Vickey Holt D.N.P., C.N.P. - 04/24/2014 2:21 PM CDT Ambulatory Discharge Medication List [address], [place] [id number] Visit Information Name: MARCIAL BAZAN [facility] Number: [id number] Visit Date: 04/24/2014 14:21:16 Attending Provider: VICKEY HOLT DNP, FNP Primary [...] emergency. Electronically Signed By: VICKEY HOLT DNP, FRESH FOODS CLERK Signed On:24-APR-2014 14:21:08 Additional Information: Source: [facility] POWERCHART Document Id: [id number] Miscellaneous - Jie Thomason L.PSusan - 04/24/2014 1:15 PM CDT Adult Licensed Direct Entry Midwife Intake/History Adult Licensed Direct Entry Midwife Intake/History Entered On: 04/24/2014 13:19 CDT Performed [...] Mass Index : 35.33 kg/m2 JIE THOMASON [facility] - 04/24/2014 13:15 CDT General Info Information Given By : Patient Preferred Communication Mode : Verbal Languages : Irish Is Patient Female and 13-50 no [...] Occasionally Amount : 1 cup per week KATELINMANOLO DUTTONWIL Salas LPN - 04/24/2014 13:15 CDT Recreational Drug Use Grid Drug Use : None KATELIN JIE Salas LPN - 04/24/2014 13:15 CDT ID Screen Drug Resistant Organism : No Travel Within Last 21 Days : No Contact with someone with Ebola : No JIE THOMASON LPN - 04/24/2014 13:15 CDT Source: [employer] Document Id: [id number] CDT!46 Miscellaneous - Ashley Cardoza LJairoP.NJairo - 03/27/2014 11:39 AM CST Quality Measures Quality Measures Entered On: 04/06/2014 11:39 INSIDE STEWARD/STEWARDESS Performed On: 03/27/2014 11:39 INSIDE STEWARD/STEWARDESS by ASHLEY CARDOZA LPN Depression PHQ-9 Score : 4 ASHLEY CARDOZA LPN - 04/06/2014 11:39 INSIDE STEWARD/STEWARDESS Source: [employer] Document Id: [id number] INSIDE STEWARD/STEWARDESS!3 DE STEWARD/STEWARDESS documented in this encounter Plan of Treatment Upcoming Encounters Date Type Specialty Care Team Description 01/22/2022 Office Visit Cardiovascular Disease Maritza Currie M.D. [address] [place] [phone] (Wo rk) documented as of this encounter Visit Diagnoses Not on filedocumented in this encounter Additional Health Concerns Assessment Noted Time PHQ-9 Depression Total Score: 1 06/01/2013 1:42 PM CDT documented as of this encounter
--- OUTSIDE RECORDS SUMMARY | 2022-01-21 13:51 | XMS_ITS | Encounter Summary ---
:1945 Author Organization [facility] Address [address] [place] [address] Care Team Providers Name Role Phone Unavailable Primary Care Provider Unavailable Encounter Details Date Type Department Care Team Description 05/31/2013 Hospital Encounter HX [facility] ME Nicki Holt, MAL, C.N.P., D. N.P. [address] [place] [address] (Wo rk) Social History Tobacco [...] D.N.P., C.N.P. - 05/31/2013 11:29 AM CDT [id number] CHIEF COMPLAINT/REASON FOR VISIT Follow up. HISTORY [...] Patient/Child/Caregiver expressed understanding of the content. Corrine LucasNRegina/F.N.P/gene Electronically Signed By: NICKI HOLT DNP, FNP On: 05/31/2013 03:52 PM Source: [facility] MHSDOLBEYNONRADSYS Document Id: [id number] documented in this encounter Miscellaneous Notes Miscellaneous - Nicki Holt D.N.P., C.N.P. - 05/31/2013 1:15 PM CDT Ambulatory Patient Summary [facility] [address] [facility] [place] [id number] Visit Information Name: ARCHIE BAZAN [facility] Number: [id number] Current Date: 05/31/2013 13:15:18 Physicians [...] Signed By: NICKI HOLT DNP, RIA Signed On:31-MAY-2013 13:15:08 Your Allergies & Intolerances [...] Date Time Location Reason Provider 06/01/2013 13:00 [facility] wellness visit [facility] Medicare Nurse Coordinato 06/09/2013 09:00 [facility] Follow up [facility] Health Manager [employer] Funeral Director 06/23/2013 09:00 [facility] Follow up [facility] Health Manager [employer] Funeral Director Attention: Contact your local Clinic if further appointment detail needed. Your Goals/Additional instructions: Source: [facility] POWERCHART Document Id: [id number] Miscellaneous - Nicki Holt, Maritza.N.P., C.N.P. - 05/31/2013 1:15 PM CDT Ambulatory Discharge Medication List [address] [id number] Visit Information Name: ARCHIE BAZAN [facility] Number: [id number] Visit Date: 05/31/2013 13:15:15 Attending [...] FNP Signed On:31-MAY-2013 13:15:08 Additional Information: Source: [facility] POWERCHART Document Id: [id number] Miscellaneous - Diana Cardoza L.P.NJairo - 05/31/2013 12:16 PM CDT Health Assessment Health Assessment Entered On: 05/31/2013 12:17 CDT Performed On: 05/31/2013 12:16 CDT by DIANA CARDOZA LPN Health Assessment Complete Health Assessment Complete or Modified : Annual Health Assessment Annual Health Assessment Completed : Yes DIANA CARDOZA [facility] - 05/31/2013 12:16 CDT Nutrition Nutrition Risk Factors by History Adult : None DIANA CARDOZA [facility] - 05/31/2013 12:16 CDT Functional Current Daily Living Assistance : None DIANA CARDOZA [facility] - 05/31/2013 12:16 CDT Dependent Habits Tobacco Use/Currently Using : No Tobacco Use/Last 12 months : No Tobacco Use/Advised to Quit : No Exposure to Tobacco Smoke : Care provider denies smoking in home Smoking Status : Never smoker DIANA CARDOZA [facility] - 05/31/2013 12:16 CDT Tobacco Use Grid Last Use : Never DIANA CARDOZA [facility] - 05/31/2013 12:16 CDT Caffeine Use Grid Caffeine Use : None Frequency : Occasionally DIANA CARDOZA [facility] - 05/31/2013 12:16 CDT Recreational Drug Use Grid Drug Use : None DIANA CARDOZA [facility] - 05/31/2013 12:16 CDT Psychosocial Domestic Abuse Concerns : None DIANA CARDOZA [facility] - 05/31/2013 12:16 CDT Advance Directive Advanced Directives : No DIANA CARDOZA LPN - 05/31/2013 12:16 CDT Educ Needs Learning Style Preference Adult Grid Patient : None Family : None DIANA CARDOZA [facility] - 05/31/2013 12:16 CDT Source: [facility] POWERCHART Document Id: [id number] CDT!32 Miscellaneous - Diana Cardoza L.P.NJairo - 05/31/2013 12:02 PM CDT Adult Proteomics Scientist Intake/History Adult Proteomics Scientist Intake/History Entered On: 05/31/2013 12:09 CDT Performed [...] By : Patient Languages : [place] Arabian DIANA CARDOZA LPN - 05/31/2013 12:02 CDT [...] CARDOZA LPN - 05/31/2013 12:02 CDT Source: [facility] POWERCHART Document Id: [id number] CDT!36 documented in this encounter Plan of Treatment Upcoming Encounters Date Type Specialty Care Team Description 01/22/2022 Office Visit Cardiovascular Disease Maritza Currie M.D. [address] [place] [phone] (Wo rk) documented as of this encounter Visit Diagnoses Not on filedocumented in this encounter
--- OUTSIDE RECORDS SUMMARY | 2022-01-21 13:51 | XMS_ITS | Encounter Summary ---
:1945 Author Organization [facility] Address [address] [place] [address] Care Team Providers Name Role Phone Unavailable Primary Care Provider Unavailable Encounter Details Date Type Department Care Team Description 12/30/2012 Hospital Encounter HX [facility] ME Vickey Holt, MAL, C.N.P., D. N.P. [address] [place] [address] (Wo rk) Social History Tobacco [...] Comments Blood Pressure 130/68 12/30/2012 10:15 AM [employer] Pulse 72 12/30/2012 10:15 AM [employer] Temperature - - Respiratory Rate 16 12/30/2012 10:15 AM [employer] Oxygen Saturation - - Inhaled Oxygen Concentration - - Weight 82.4 kg (181 lb 10.5 oz) 12/30/2012 10:15 AM [employer] Height 162.3 cm (5' 3.9) 12/30/2012 10:15 AM [employer] Body Mass Index 31.28 12/30/2012 10:15 AM [employer] documented in this encounter Medications at Time of Discharge Medication Sig Dispensed Refills Start Date End Date ASPIRIN ORAL Take 81 mg by mouth daily. Take 0 11/13/2021 with food for heart health. documented as of this encounter Progress Notes Vickey Holt, D.N.P., C.N.P. - 12/30/2012 10:02 AM CST [id number] CHIEF COMPLAINT/REASON FOR VISIT Skin lesion underneath [...] patient. Patient was given information from the [facility] Education site regarding seborrheic keratosis in which [...] expressed understanding of the content Vickey Holt D.N.P./Juan Electronically Signed By: VICKEY HOLT DNP, FNP On: 12/31/2012 12:33 PM Source: [facility] MHSDOLBEYNONRADSYS Document Id: [id number] [employer] documented in this encounter Miscellaneous Notes Miscellaneous - Vickey Holt D.N.P., C.N.P. - 12/30/2012 12:19 PM [employer] Ambulatory Patient Summary [address] [id number] Visit Information Name: ELIDAJOSE MIGUEL HARRISPATRICK MAI [facility] Number: [id number] Current Date: 12/30/2012 12:19:37 Physicians Attending Provider: VICKEY HOLT DNP, FNP Primary Care Provider: VICKEY HOTL DNP, FNP BENIMARCIAL PAU has been given the following [...] Date Time Location Reason Provider 01/03/2013 12:45 [place] PT/OT RT ROTATOR CUFF Ziyad Childs 01/20/2013 09:30 [facility] f/u [facility] Health Server Cashier Attention: Contact your local Clinic if further appointment detail needed. Your Goals/Additional instructions: Source: [facility] POWERCHART Document Id: [id number] [employer] Miscellaneous - Vickey Holt D.N.P., C.N.P. - 12/30/2012 12:19 PM [employer] Ambulatory Depart Summary [address] [id number] Visit Information Name: MARCIAL BAZAN [facility] Number: [id number] Visit Date: 12/30/2012 12:19:36 Attending Provider: VICKEY HOLT DNP, FNP Primary [...] your provider for clarification. Additional Information: Source: [facility] POWERCHART Document Id: [id number] [employer] Miscellaneous - Sylvia Darnell L.P.N. - 12/30/2012 10:15 AM CST Adult Library Assistant Intake/History Adult Library Assistant Intake/History Entered On: 12/30/2012 10:19 [employer] Performed On: 12/30/2012 10:15 [employer] by SYLVIA DARNELL CT SCAN TECH Intake Chief Complaint : Spot under left [...] 1.93 Body Mass Index : 31.28 kg/m2 SYLVIA DARNELL [facility] - 12/30/2012 10:15 [employer] General Info Information Given By : Patient Languages : Northern Irish SYLVIA DARNELL [facility] - 12/30/2012 10:15 [employer] Subjective Pain Symptoms : No SYLVIA DARNELL [facility] - 12/30/2012 10:15 [employer] Dependent Habits Tobacco Use/Currently Using : No Tobacco Use/Last 12 months : No Tobacco Use/Advised to Quit : No Exposure to Tobacco Smoke : Care provider denies smoking in home Smoking Status : Never smoker SYLVIA DARNELL [facility] - 12/30/2012 10:15 [employer] Tobacco Use Grid Last Use : Never SYLVIA DARNELL [facility] 12/30/2012 10:15 [employer] Alcohol Use : No SYLVIA DARNELL [facility] 12/30/2012 10:15 [employer] Caffeine Use Grid Caffeine Use : Current Type : Tea Frequency : Occasionally SYLVIA DARNELL [facility] - 12/30/2012 10:15 [employer] Recreational Drug Use Grid Drug Use : None SYLVIA DARNELL [facility] 12/30/2012 10:15 [employer] Source: [facility] POWERCHART Document Id: [id number] POUL[employer]ER!41 [employer] documented in this encounter Plan of Treatment Upcoming Encounters Date Type Specialty Care Team Description 01/22/2022 Office Visit Cardiovascular Disease Maritza Currie M.D. [address] [place] [phone] (Wo rk) documented as of this encounter Visit Diagnoses Not on filedocumented in this encounter
--- OUTSIDE RECORDS SUMMARY | 2022-01-21 13:51 | XMS_ITS | Encounter Summary ---
:1945 Author Organization [facility] Address [address] [place] [address] Care Team Providers Name Role Phone Unavailable Primary Care Provider Unavailable Encounter Details Date Type Department Care Team Description 03/27/2014 Hospital Encounter [facility] ME Vickey Holt, MAL, C.N.P., D. N.P. [address] [place] [address] (Wo rk) Social History Tobacco [...] Comments Blood Pressure 130/60 03/27/2014 1:36 PM ELECTRIC GAS APPLIANCES DEMONSTRATOR Pulse 65 03/27/2014 1:36 PM ELECTRIC GAS APPLIANCES DEMONSTRATOR Temperature - - Respiratory Rate 18 03/27/2014 1:36 PM ELECTRIC GAS APPLIANCES DEMONSTRATOR Oxygen Saturation - - Inhaled Oxygen Concentration - - Weight 88.2 kg (194 lb 7.1 oz) 03/27/2014 1:36 PM ELECTRIC GAS APPLIANCES DEMONSTRATOR Height 158 cm (5' 2.21) 03/27/2014 1:36 PM ELECTRIC GAS APPLIANCES DEMONSTRATOR Body Mass Index 35.33 03/27/2014 1:36 PM ELECTRIC GAS APPLIANCES DEMONSTRATOR documented in this encounter Medications at Time of Discharge Medication Sig Dispensed Refills Start Date End Date ASPIRIN ORAL Take 81 mg by mouth daily. Take 0 11/13/2021 with food for heart health. documented as of this encounter Progress Notes Vickey Holt, D.N.P., C.N.P. - 03/27/2014 1:14 PM CST [id number] CHIEF COMPLAINT/REASON FOR VISIT Follow up type [...] expressed understanding of the content. Vickey Holt D.N.P./Stanislav.N.P/gene Electronically Signed By: VICKEY HOLT DNP, FNP On: 03/28/2014 02:41 PM Source: [facility] MHSDOLBEYNONRADSYS Document Id: [id number] TRIC GAS APPLIANCES DEMONSTRATOR documented in this encounter Miscellaneous Notes Miscellaneous - Vickey Holt D.N.Kvng, C.N.P. - 03/27/2014 3:37 PM ELECTRIC GAS APPLIANCES DEMONSTRATOR Ambulatory Patient Summary [address] [id number] Visit Information Name: MARCIAL BAZAN [facility] Number: [id number] Current Date: 03/27/2014 15:37:18 Physicians Attending Provider: VICKEY HOLT DNP, FNP Primary Care Provider: VICKEY HOLT DNP, FNP ELIDASTEVEN MARCIAL PAU has been given the following [...] VICKEY HOLT DNP, FNP Signed On:27-MAR-2014 14:11:05 Your [...] Appointments Date Time Location Provider 04/24/2014 13:00 [facility] Family Med Raj BRENNAN, Vickey Anderson Attention: Contact your local Clinic if further appointment detail needed. Your Goals/Additional instructions: follow up in 1 month for a weight check. Source: [facility] POWERCHART Document Id: [id number] TRIC GAS APPLIANCES DEMONSTRATOR Miscellaneous - Vickey Holt D.N.Payal., C.N.P. - 03/27/2014 3:37 PM ELECTRIC GAS APPLIANCES DEMONSTRATOR Ambulatory Discharge Medication List [address] [id number] Visit Information Name: MARCIAL BAZAN PAU [facility] Number: [id number] Visit Date: 03/27/2014 15:37:16 Attending [...] emergency. Electronically Signed By: VICKEY HOLT DNP, FORMSTONE FITTER Signed On:27-MAR-2014 14:11:05 Additional Information: Source: [facility] POWERCHART Document Id: [id number] TRIC GAS APPLIANCES DEMONSTRATOR Miscellaneous - Mel Batista L.P.N. - 03/27/2014 1:36 PM CST Adult Special Education Professional Intake/History Adult Special Education Professional Intake/History Entered On: 03/27/2014 13:41 ELECTRIC GAS APPLIANCES DEMONSTRATOR Performed On: 03/27/2014 13:36 ELECTRIC GAS APPLIANCES DEMONSTRATOR by MEL BATISTA LPN Intake Chief Complaint [...] kg/m2 MEL BATISTA LPN - 03/27/2014 13:36 ELECTRIC GAS APPLIANCES DEMONSTRATOR General Info Information Given By : Patient Languages : Northern Irish Is Patient Female and 13-50 no hysterectomy : No MEL BATISTA LPN - 03/27/2014 13:36 ELECTRIC GAS APPLIANCES DEMONSTRATOR Subjective Pain Symptoms : Yes MEL BATISTA LPN - 03/27/2014 13:36 ELECTRIC GAS APPLIANCES DEMONSTRATOR Pain Scale Pain Scale Verbal 0-10 : Open MEL BATISTA [facility] - 03/27/2014 13:36 ELECTRIC GAS APPLIANCES DEMONSTRATOR Pain Pain Assessment Grid Pain 1 Location : Abdomen Laterality : Right (Comment: occ [MEL BATISTA [facility] - 03/27/2014 13:36 ELECTRIC GAS APPLIANCES DEMONSTRATOR] ) Intensity : 1 MEL BATISTA [facility] - 03/27/2014 13:36 ELECTRIC GAS APPLIANCES DEMONSTRATOR Dependent Habits Tobacco Use/Currently Using : No Exposure to Tobacco Smoke : Care provider denies smoking in home Smoking Status : Never smoker MEL BATISTA Ronak [facility] - 03/27/2014 13:36 ELECTRIC GAS APPLIANCES DEMONSTRATOR Tobacco Use Grid Last Use : Never MEL BATISTA [facility] 03/27/2014 13:36 ELECTRIC GAS APPLIANCES DEMONSTRATOR Caffeine Use Grid Caffeine Use : None Frequency : Occasionally Amount : 1 cup per week MEL BATISTA Ronak [facility] - 03/27/2014 13:36 ELECTRIC GAS APPLIANCES DEMONSTRATOR Recreational Drug Use Grid Drug Use : None MEL BATISTA Ronak [facility] 03/27/2014 13:36 ELECTRIC GAS APPLIANCES DEMONSTRATOR ID Screen Drug Resistant Organism : No Travel Within Last 21 Days : No MEL BATISTA Ronak [facility] - 03/27/2014 13:36 ELECTRIC GAS APPLIANCES DEMONSTRATOR Source: Always Prepped Document Id: [id number] ELECTRIC GAS APPLIANCES DEMONSTRATOR!52 TRIC GAS APPLIANCES DEMONSTRATOR documented in this encounter Plan of Treatment Upcoming Encounters Date Type Specialty Care Team Description 01/22/2022 Office Visit Cardiovascular Disease Maritza Currie M.D. [address] [place] [address] [phone] (Wo rk) documented as of this encounter Visit Diagnoses Not on filedocumented in this encounter Additional Health Concerns Assessment Noted Time PHQ-9 Depression Total Score: 1 06/01/2013 1:42 PM CDT documented as of this encounter
--- OUTSIDE RECORDS SUMMARY | 2022-01-21 13:51 | XMS_ITS | Encounter Summary ---
:1945 Author Organization [facility] Address [address] [place] [address] Care Team Providers Name Role Phone Unavailable Primary Care Provider Unavailable Encounter Details Date Type Department Care Team Description 01/03/2013 - Hospital Encounter [facility] Arias Finn 05/11/2013 AURELIANO Thurston M.D. [address] [phone] Social History Tobacco Use Types [...] as of this encounter Discharge Summaries Chilango Lovell PKeanu. - 02/21/2013 12:00 AM CST [id number] IMPRESSION/REPORT/PLAN This patient was seen for a [...] on further therapy at this time. Otilio Montez/[facility] Electronically Signed By: CHILANGO LOVELL On: 02/24/2013 11:50 AM Source: [facility] MHSDOLSTEVENYNPERRY Document Id: [id number] LY CHAIN SPECIALIST documented in this encounter Medications at Time of Discharge Medication Sig Dispensed Refills Start Date End Date ASPIRIN ORAL Take 81 mg by mouth daily. Take 0 11/13/2021 with food [employer]. documented as of this encounter Progress Notes Chilango Lovell P.T. - 01/19/2013 12:00 AM CST [id number] IMPRESSION/REPORT/PLAN Marcial comes in today still with [...] CHILANGO LOVELL On: 01/25/2013 08:29 AM [facility] Document Id: [id number] Chilango Mabry P.T. - 01/17/2013 12:00 AM CST [id number] IMPRESSION/REPORT/PLAN Marcial comes in today without any [...] CHILANGO LOVELL On: 01/25/2013 08:34 AM [facility]: [facility] Document Id: [id number] Chilango Mabry P.T. - 01/12/2013 12:00 AM CST [id number] IMPRESSION/REPORT/PLAN Marcial comes in today for continued [...] 01/25/2013 08:34 AM Source: [facility] CLIFF Document Id: [id number] LY CHAIN SPECIALIST Chilango Lovell P.T. - 01/10/2013 12:00 AM CST [id number] IMPRESSION/REPORT/PLAN Marcial comes in today stating she has been trying to do her exercises aggressively at home. Her was in with her today. He notes that she has been very lutheran about her exercises. We did continue today [...] to continue. She will be seeing her utilization review specialist once again I believe this week as well. Otilio Montez/[facility]rick DOCID: [[id number]] Electronically Signed By: CHILANGO LOVELL On: 01/18/2013 08:09 AM Source: [facility] Document Id: [id number] Chilango Mabry P.T. - 01/07/2013 12:00 AM CST [id number] IMPRESSION/REPORT/PLAN Marcial comes in today stating that [...] CHILANGO LOVELL On: 01/25/2013 08:41 AM Source: [facility] Document Id: [id number] Chilango Mabry PKarthik - 01/05/2013 12:00 AM CST [id number] IMPRESSION/REPORT/PLAN Marcial comes in today stating that [...] CHILANGO LOVELL On: 01/07/2013 06:13 AM Source: [facility] MHSDOLBEYNONRADSYS Document Id: [id number] LY CHAIN SPECIALIST documented in this encounter Consult Notes Chilango Lovell P.T. - 01/03/2013 12:00 AM CST [id number] CHIEF COMPLAINT/REASON FOR VISIT This patient comes [...] CHILANGO LOVELL On: 01/07/2013 06:17 AM Source: [facility] MHSDOLBEYNONRADSYS Document Id: [id number] LY CHAIN SPECIALIST documented in this encounter Miscellaneous Notes Miscellaneous - Tameka Velasco RSusan - 03/09/2013 8:25 AM CST Reminder Msg From: TAMEKA VELASCO RN To: [place] Colonoscopy Pool; Sent: 03/09/2013 08:25:33 SUPPLY CHAIN SPECIALIST Show up: 10/28/2018 08:25:00 CDT Subject: Reminder Msg Due Date/Time: 01/05/2019 08:24:00 SUPPLY CHAIN SPECIALIST Please Remember to: Patient had her last scope in 2008, she is a 10 year follow- up, bx were normal mucosa. She is due in 2019. PATIENT: ( ) Call Patient ( ) Ask Patient to ( ) ( ) Call Relative ( ) Schedule Patient ( ) ( ) Call for Solaris Administrator ( ) Follow up on Results ( ) Other: PROVIDER: ( ) Call Physician ( ) Call Pharmacist ( ) Call Lab ( ) Other: Special Instructions: Comments: Source: [facility] POWERCHART Document Id: [id number] Electronically signed by Sae [facility] Wireless Manager [id number] at 07/16/2016 5:15 PM CDT Miscellaneous - Vickey Holt D.N.P., C.N.P. - 03/04/2013 3:01 PM SUPPLY CHAIN SPECIALIST Medication MARCIAL BAZAN March [birth year], [address] [place] [phone] To Whom It May Concern: The letter is being written on behalf of Marcial Bazan. I do recommend that the patient take Fish Oilwith omega-3 by mouth daily as directed on package for cardiac benefit. She is also instructed to take calcium with vitamin D for overall bone health, 600 mg 3 times daily. She may use Mucinex yonh-okc-jshumfp as directed on package as needed for nasal congestion. I also encourage her to use aspirin 81 mg by mouth daily for cardiac protection and also given her medical history of type 2 diabetes mellitus. She is also instructed to use Prilosec celc-sme-qxvqtgn 20 mg extended release tablet to take 1tablet by mouth daily as needed for gastroesophageal reflux, heartburn, and/or when taking nonsteroidal anti-inflammatories. (These medications are used for hyperlipidemia, type 2 diabetes mellitus, and osteoporosis which Marcial has been diagnosed with.) Sincerely, Vickey Holt D.N.P./[facility] Electronically Signed By: VICKEY HOLT DNP, FNP On: 03/04/2013 03:01 PM Source: [facility] POWERCHART Document Id: [id number] LY CHAIN SPECIALIST documented in this encounter Plan of Treatment Upcoming Encounters Date Type Specialty Care Team Description 01/22/2022 Office Visit Cardiovascular Disease Maritza Currie M.D. [address] [place] [address] [phone] (Wo rk) documented as of this encounter Visit Diagnoses Not on filedocumented in this encounter
--- OUTSIDE RECORDS SUMMARY | 2022-01-21 13:51 | XMS_ITS | Encounter Summary ---
:1945 [address] [facility] Address [address] [place] [address] Care Team Providers Name Role Phone Unavailable Primary Care Provider Unavailable Encounter Details Date Type Department Care Team Description 12/16/2012 Hospital Encounter [facility] Nicki Anthony, MAL, C.N.P., D. N.P. [address] [place] [address] (Wo rk) Social History Tobacco [...] mouth daily. Take 0 11/13/2021 with food [employer] health. documented as of this encounter Progress Notes Conversion, Historical Provider Ser - 12/16/2012 8:55 AM CDT [id number] HEALTH & WELLNESS COACHING Patient was seen at [facility] in [place] on 12/16/2012 for a follow-up wellnesscoaching visit [...] D.N.P./Stanislav.N.P Electronically Signed By: ANNIE PÉREZ On: 12/17/2012 10:19 AM Source: [facility] MHSDOLBEYNONRADSYS Document Id: [id number] documented in this encounter Plan of Treatment Upcoming Encounters Date Type Specialty Care Team Description 01/22/2022 Office Visit Cardiovascular Disease Maritza Currie M.D. [address] [place] [address] [phone] (Wo rk) documented as of this encounter Visit Diagnoses Not on filedocumented in this encounter
--- OUTSIDE RECORDS SUMMARY | 2022-01-21 13:51 | XMS_ITS | Encounter Summary ---
:1945 Author Organization [facility] Address [address] [place] [address] Care Team Providers Name Role Phone Unavailable Primary Care Provider Unavailable Encounter Details Date Type Department Care Team Description 11/18/2012 Hospital Encounter HX [facility] ME Nicki Anthony, MAL, C.N.P., D. N.P. [address] [place] [address] (Wo rk) Social History Tobacco [...] daily. Take 0 11/13/2021 with food for [employer] [facility]. documented as of this encounter Progress Notes Conversion, Historical Provider Ser - 11/18/2012 9:20 AM CDT [id number] HEALTH AND WELLNESS COACHING Patient was seen at [facility] in [place] for follow-up wellness coaching visit on 11/18/2012 [...] for her during her recovery time. Annie Pérez/[facility] Electronically Signed By: ANNIE PÉREZ On: 11/23/2012 03:53 PM Source: [facility] MHSDOLBEYNONRADSYS Document Id: [id number] documented in this encounter Plan of Treatment Upcoming Encounters Date Type Specialty Care Team Description 01/22/2022 Office Visit Cardiovascular Disease Maritza Currie M.D. [address] [place] [address] [phone] (Wo rk) documented as of this encounter Visit Diagnoses Not on filedocumented in this encounter
--- OUTSIDE RECORDS SUMMARY | 2022-01-21 13:51 | XMS_ITS | Encounter Summary ---
:1945 Author Organization [facility] Address [address] [place] [address] Care Team Providers Name Role Phone Unavailable Primary Care Provider Unavailable Encounter Details Date Type Department Care Team Description 02/24/2013 Hospital Encounter HX [facility] Nicki Anthony, MAL, C.N.P., D. N.P. [address] [place] [address] (Wo rk) Social History Tobacco [...] mouth daily. Take 0 11/13/2021 with food [employer] [facility]. documented as of this encounter Progress Notes Conversion, Historical Provider Ser - 02/24/2013 10:26 AM CST [id number] HEALTH & WELLNESS COACHING Referring Physician Nicki Anthony, Maritza.N.P./NereidaN.P Patient was seen in [facility] on 02/24/2013 for follow-up wellness coaching [...] ANNIE PÉREZ On: 02/25/2013 11:07 AM Source: [facility] MHSDOLBEYNONRADSYS Document Id: [id number] documented in this encounter Plan of Treatment Upcoming Encounters Date Type Specialty Care Team Description 01/22/2022 Office Visit Cardiovascular Disease Maritza Currie M.D. [address] [place] [address] [phone] (Wo rk) documented as of this encounter Visit Diagnoses Not on filedocumented in this encounter
--- OUTSIDE RECORDS SUMMARY | 2022-01-21 13:51 | XMS_ITS | Encounter Summary ---
:1945 Author Organization [facility] Address [address] [place] [address] Care Team Providers Name Role Phone Unavailable Primary Care Provider Unavailable Encounter Details Date Type Department Care Team Description 07/24/[address] [facility] [place] Gail Garrison M.D. [address] [place] [phone] (Wo rk) Social History Tobacco Use [...] two times per day. She saw the cement side laster in March and would like to see [...] Ordered: OV Est Pt Level 4 - 59265 - 25 min 2. Complaint Memory Patient's symptoms are not progressing and do not sound overly severe. She denied any more significant problems. At this point we will continue to monitor. Ordered: OV Est Pt Level 4 - 79624 - 25 min 3. Rosacea NOS Clindamycin gel was refilled. Ordered: OV Est Pt Level 4 - 00941 - 25 min 4. Hyperlipidemia NOS Patient will be due for lab work in November. Ordered: OV Est Pt Level 4 - 40966 - 25 min 5. Hypothyroidism NOS TSH will be due in November. Ordered: OV Est Pt Level 4 - 06233 - 25 min Orders: clindamycin topical, 1 shauna, Topical, 2xDay, rosacea, # 30 gm, 3 Refill(s), Maintenance, Pharmacy: [facility] Consult to Body Masker/Nutrition - Clinic Electronically Signed By: GAIL VILLAR MD On: 07/24/2014 02:05 PM Source: [facility] POWERCHART Document Id: [id number] documented in this encounter Miscellaneous Notes Miscellaneous - Gail Cortez M.D. - 07/24/2014 10:41 AM CDT Ambulatory Patient Summary [address] [place] [id number] Visit Information Name: ARCHIE BAZAN [facility] Number: [id number] Current Date: 07/24/2014 10:41:43 [...] 1 shauna, Topical, two times a day rosaparadise New Routed to [address] [address] glipiZIDE (glipiZIDE 5 mg oral [...] Appointments Date Time Location Provider 07/24/2014 11:00 [facility] Bone Dens [facility] BD Rm 1 07/24/2014 11:30 [facility] Mammo [facility] MA Room 1 Attention: Contact your local Clinic if further appointment detail needed. Your Goals/Additional instructions: Future Appointment: _ Lab: _ Radiology: _ Need Prior Auth: _ NO Prior Auth: _ Consult: Body Masker Release of MR_ PHI_ Source: [facility] POWERCHART Document Id: [id number] Miscellaneous - Gail Cortez M.D. - 07/24/2014 10:41 AM CDT Ambulatory Discharge Medication List [address] [place] [id number] Visit Information Name: BENI JOSE MIGUELPATRICK MAI [facility] Number: [id number] Visit Date: 07/24/2014 10:41:41 [...] times a day rosacea New Routed to [address] [address] glipiZIDE (glipiZIDE 5 mg oral tablet) 0.5 [...] MD Signed On:24-JUL-2014 10:41:01 Additional Information: Source: [facility] POWERCHART Document Id: [id number] Miscellaneous - Nya Wilson L.P.N. - 07/24/2014 10:00 AM CDT Adult Revolving Inventory Clerk Intake/History Adult Revolving Inventory Clerk Intake/History Entered On: 07/24/2014 10:03 CDT Performed [...] Information Given By : Patient Languages : Czech Is Patient Female and 13-50 no hysterectomy : No NYA WILSON LPN - 07/24/2014 10:00 CDT Subjective Pain Symptoms : No NYA WILSON LPN - 07/24/2014 10:00 CDT Dependent Habits Tobacco Use/Currently Using : No Exposure to Tobacco Smoke : Care provider denies smoking in home Smoking Status : Never smoker ZHOURUDOLPHNYA OSCAR MIXING MACHINE TENDER - 07/24/2014 10:00 CDT Tobacco Use Grid Last Use : never ZHOURUDOLPHNYA OSCAR LPN - 07/24/2014 10:00 CDT Alcohol Use : No NYA WILSON LPN - 07/24/2014 10:00 CDT Caffeine Use Grid Caffeine Use : None Type : Coffee, Soft drinks Frequency : Occasionally Amount : 1 cup per week NYA WILSON LPN - 07/24/2014 10:00 CDT Recreational Drug Use Grid Drug Use : None NYA WILSON LPN - 07/24/2014 10:00 CDT Source: [employer] Document Id: [id number]!40 documented in this encounter Plan of Treatment Upcoming Encounters Date Type Specialty Care Team Description 01/22/2022 Office Visit Cardiovascular Disease Maritza Currie M.D. [address] [place], [place] [phone] (Wo rk) documented as of this encounter Visit Diagnoses Not on filedocumented in this encounter Additional Health Concerns Assessment Noted Time PHQ-9 Depression Total Score: 7 06/21/2014 9:20 AM CDT documented as of this encounter
--- OUTSIDE RECORDS SUMMARY | 2022-01-21 13:51 | XMS_ITS | Encounter Summary ---
:1945 Author Organization [facility] Address [address] [place] [address] Care Team Providers Name Role Phone Unavailable Primary Care Provider Unavailable Encounter Details Date Type Department Care Team Description 05/11/2013 Hospital Encounter [facility] Nicki Anthony, MAL, C.N.P., D. N.P. [address] [place] [address] (Wo rk) Social History Tobacco [...] daily. Take 0 11/13/2021 with food for [employer] health. documented as of this encounter Progress Notes Conversion, Historical Provider Ser - 05/11/2013 8:57 AM CDT [id number] REFERRAL SOURCE Nicki Anthony. Patient was seen in [facility] on 05/11/2013 for followup wellness coaching visit on the area of lifestyle management and weight loss/diabetes. CHIEF COMPLAINT/REASON FOR VISIT Followup wellness coaching visit. HISTORY OF PRESENT ILLNESS Her weight today is at 85.3 kg which is at 187.66 pounds. This is up 8.58 pounds since last session,seen on February 2013. SESSION OVERVIEW Today I met with Lurene as she is interested in getting back [...] ANNIE PÉREZ On: 05/13/2013 01:48 PM Source: [facility] MHSDOLBEYNONRADSYS Document Id: [id number] documented in this encounter Plan of Treatment Upcoming Encounters Date Type Specialty Care Team Description 01/22/2022 Office Visit Cardiovascular Disease Maritza Currie M.D. [address] [place], [place] [phone] (Wo rk) documented as of this encounter Visit Diagnoses Not on filedocumented in this encounter
--- OUTSIDE RECORDS SUMMARY | 2022-01-21 13:51 | XMS_ITS | Encounter Summary ---
:1945 Author Organization [facility] Address [address] [place] [address] Care Team Providers Name Role Phone Unavailable Primary Care Provider Unavailable Encounter Details Date Type Department Care Team Description 06/01/2013 Hospital Encounter [facility] Nicki Holt, MAL, C.N.P., D. N.P. [address] [place] [address] (Wo rk) Social History Tobacco [...] Take 0 11/13/2021 with food for heart [employer]. documented as of this encounter H&P Dianne Milner R.N. - 06/01/2013 12:58 PM CDT [id number] Marcial is a very pleasant, 67-year-old female [...] HISTORY Marcial is . She lives in [facility]. She is retired. 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 They do have a pet. He [...] PROVIDERS AND LIST OF SUPPLIERS: Nicki Holt, [facility] in [place] is her primary care provider, [facility] for her dental and pharmaceutical needs. Anthony in [place] is her eye doctor and [facility] chiropractor for chiropractic needs. EDUCATION, COUNSELING AND RECOMMENDATIONS: Macrial was given the patient education from [facility] entitled Eat Well Use a Plate Method [...] 2. Scheduled a diabetic refresher with the adult educator. 2. Recommendation for colonoscopy, colon cancer [...] 12:09 PM Co-Signed By: NICKI HOLT DNP, PRODUCTION SUPERVISOR OFF SHIFT On: 06/10/2013 07:39 AM Source: [facility] MHSDOLBEYNONRADSYS Document Id: [id number] documented in this encounter Procedure Notes Dianne London R.N. - 06/01/2013 1:16 PM CDT Vision Testing Vision Testing Entered On: 06/01/2013 13:19 CDT Performed On: 06/01/2013 13:16 CDT by DIANNE LONDON RN Vision Testing Corrective Lenses : Glasses Eye, Right with Correction : 20/40 Eye, Left w/Correction : 20/25 Eyes, Both with Correction : 20/30 DIANNE LONDON RN - 06/01/2013 13:16 CDT Source: [facility] POWERCardioInsight Technologies Document Id: [id number] CDT!6 documented in this encounter Miscellaneous Notes [...] LONDON RN - 06/01/2013 13:45 CDT Source: [employer] Document Id: [id number] CDT!10 Miscellaneous - Dianne London, RJairoNJairo - [...] LONDON RN - 06/01/2013 13:42 CDT Source: [employer] Document Id: [id number] CDT!13 Miscellaneous - Dianne London R.N. - [...] LONDON RN - 06/01/2013 13:33 CDT Source: [facility] [employer] Document Id: [id number] CDT!33 Miscellaneous - Dianne London R.N. - 06/01/2013 1:20 PM CDT Adult Research Biologist Intake/History Adult Research Biologist Intake/History Entered On: 06/01/2013 13:33 CDT Performed On: 06/01/2013 13:20 CDT by DIANNE LONDON hide dropper Chief Complaint : Medicare Initial Annual Wellness [...] Information Given By : Patient Languages : Turkish DIANNE LONDON RN - 06/01/2013 13:20 CDT [...] LONDON RN - 06/01/2013 13:20 CDT Source: [employer] Document Id: [id number] CDT!35 documented in this encounter Plan of Treatment Upcoming Encounters Date Type Specialty Care Team Description 01/22/2022 Office Visit Cardiovascular Disease Maritza Currie M.D. [address] [place], [place] [phone] (Wo rk) documented as of this encounter Visit Diagnoses Not on filedocumented in this encounter Additional Health Concerns Assessment Noted Time PHQ-9 Depression Total Score: 1 06/01/2013 1:42 PM CDT documented as of this encounter
--- OUTSIDE RECORDS SUMMARY | 2022-01-21 13:51 | XMS_ITS | Encounter Summary ---
:1945 Author Organization [facility] Address [address] [place] [address] Care Team Providers Name Role Phone Unavailable Primary Care Provider Unavailable Encounter Details Date Type Department Care Team Description 01/20/2013 Hospital Encounter [facility] ME Nicki Anthony, MAL, C.N.P., D. N.P. [address] [place] [address] (Wo rk) Social History Tobacco [...] daily. Take 0 11/13/2021 with food for [employer] health. documented as of this encounter Progress Notes Conversion, Historical Provider Ser - 01/20/2013 9:22 AM CST [id number] HEALTH AND WELLNESS COACHING The patient was seen at [facility] in [place] on 01/20/2013 for followup wellness coaching visit [...] cheese, fruit, or cottage cheese along with Angolan yogurts and nuts. FOLLOWUP PLAN We will [...] holiday seasonfor more accountability and guidance. Annie Pérez/[facility] Electronically Signed By: ANNIE PÉREZ On: 01/21/2013 03:58 PM Source: [facility] MHSDOLBEYNONNATOSYSuzy Document Id: [id number] documented in this encounter Plan of Treatment Upcoming Encounters Date Type Specialty Care Team Description 01/22/2022 Office Visit Cardiovascular Disease Maritza Currie M.D. [address] [place], [place] [phone] (Wo rk) documented as of this encounter Visit Diagnoses Not on filedocumented in this encounter
--- OUTSIDE RECORDS SUMMARY | 2022-01-21 13:51 | XMS_ITS | Encounter Summary ---
:1945 Author Organization [facility] Address [address] [place] [address] Care Team Providers Name Role Phone Unavailable Primary Care Provider Unavailable Encounter Details Date Type Department Care Team Description 08/24/2012 - Hospital Encounter [facility] Raj Asha reanna 02/21/2013 AURELIANO Anderson, MAL, C.N.P., D.N.P. [address] [place] [address] Social History Tobacco Use Types [...] Lovell, P.T. - 09/02/2012 12:00 AM CDT [id number] IMPRESSION/REPORT/PLAN This patient came in today with [...] if she wants to follow-up with an counterintelligence/humint specialist. Her strength remains quite good overall. [...] shoulder issues. She will possibly see an counterintelligence/humint specialist. PLAN: At this time, the patient will be discharged from physical therapy. We may follow-up with further therapy at a later time should she choose to do so. We may also have follow-up after she sees an counterintelligence/humint specialist. Otilio Montez/[place] Electronically Signed By: CHILANGO LOVELL On: 09/06/2012 07:02 AM Source: [facility] MHSDOLBEYNONRADSYS Document Id: [id number] documented in this encounter Medications at Time of Discharge Medication Sig Dispensed Refills Start Date End Date ASPIRIN ORAL Take 81 mg by mouth daily. Take 0 11/13/2021 with food [employer]. documented as of this encounter Progress Notes Chilango Lovell P.T. - 08/27/2012 12:00 AM CDT [id number] IMPRESSION/REPORT/PLAN Marcial comes in today stating that [...] will be to follow-up next week. Otilio Montez/[facility] DOCID: [110] Electronically Signed By: CHILANGO LOVELL On: 08/31/2012 02:18 PM Source: [facility] MHSDOLBEYNONRADSYS Document Id: [id number] documented in this encounter Consult Notes Chilango Lovell P.T. - 08/24/2012 12:00 AM CDT [id number] CHIEF COMPLAINT/REASON FOR VISIT This patient comes [...] minutes. The patient did fill out the [employer] [facility] score. Based upon [...] 08/31/2012 02:32 PM Co-Signed By: VICKEY HOLT [facility] On: 09/06/2012 08:30 AM Source: [facility] Document Id: [id number] documented in this encounter Miscellaneous Notes Miscellaneous - Ashley Cardoza L.P.NJairo - 11/18/2012 12:36 PM CDT Ambulatory Vitals Height Weight Ambulatory Vitals Height Weight Entered On: 11/25/2012 12:36 CDT Performed On: 11/18/2012 12:36 CDT by ASHLEY CARDOZA LPN Vitals/Ht/Wt Actual Weight : 80.7 kg(Converted to: 177 lb 15 oz) Weight Source : Standing scale Dosing Weight Clinic : 80.7 kg ASHLEY CARDOZA LPN - 11/25/2012 12:36 CDT Source: [facility] POWERCHART Document Id: [id number] CDT!5 Miscellaneous - Conversion, Historical Provider Ser [...] not D/C or decrease. Please advise Source: [facility] [email or web address] Document Id: [id number] Miscellaneous - Petra Lopez L.PJairoN. - 10/11/2012 [...] reach per her request Thanks Petra Source: [facility] POWERCHART Document Id: [id number] Electronically signed by [facility] [employer] Advisor [id number] at 07/16/2016 1:01 AM CDT Miscellaneous - [...] Dr. Velasco. Appointment set up with Dr. Velasco([facility]) in [place] 10/06/12 at 1350. Marcialn aware to bring [...] set patient up with Dr. Velasco in [facility]. Booked till 10/06/12. Will talk with patient next wk when she gets back from vacation. Source: [facility] POWERCHART Document Id: [id number] Electronically signed by [facility] [employer] Advisor [id number] at 07/16/2016 1:01 AM CDT documented in this encounter Plan of Treatment Upcoming Encounters Date Type Specialty Care Team Description 01/22/2022 Office Visit Cardiovascular Disease Maritza Currie M.D. [address] [place] [phone] (Wo rk) documented as of this encounter Visit Diagnoses Not on filedocumented in this encounter
--- OUTSIDE RECORDS SUMMARY | 2022-01-21 13:51 | XMS_ITS | Encounter Summary ---
:1945 Author Organization [facility] Address [address] [place] [address] Care Team Providers Name Role Phone Unavailable Primary Care Provider Unavailable Encounter Details Date Type Department Care Team Description 03/13/[address] [facility] Nicki Holt, MAL, C.N.P., D. N.P. [address] [place] [address] (Wo rk) Social History Tobacco [...] Comments Blood Pressure 120/76 03/13/2014 8:32 AM VENDING MACHINE FILLER Pulse 68 03/13/2014 8:32 AM VENDING MACHINE FILLER Temperature - - Respiratory Rate 16 03/13/2014 8:32 AM VENDING MACHINE FILLER Oxygen Saturation - - Inhaled Oxygen Concentration - - Weight 87.3 kg (192 lb 7.4 oz) 03/13/2014 8:32 AM VENDING MACHINE FILLER Height 158 cm (5' 2.21) 03/13/2014 8:32 AM VENDING MACHINE FILLER Body Mass Index 34.97 03/13/2014 8:32 AM VENDING MACHINE FILLER documented in this encounter Medications at Time of Discharge Medication Sig Dispensed Refills Start Date End Date ASPIRIN ORAL Take 81 mg by mouth daily. Take 0 11/13/2021 with food for heart health. documented as of this encounter Progress Notes Nicki Holt, Maritza.N.P., C.N.P. - 03/13/2014 8:29 AM CST [id number] CHIEF COMPLAINT/REASON FOR VISIT Follow up type [...] past she has also utilized a Health [employer] Cloud Consulting Architect here at the [facility] in [place] (whose services are no longer available) in which she had significant reduction in weight and overall improvement of her hemoglobin A1c. After the Health [employer] Cloud Consulting Architect services were no longer available the patient [...] DNP, FNP On: 03/14/2014 07:28 AM Source: [facility] MHSDOLBEYNONRADSYS Document Id: [id number] ING MACHINE FILLER documented in this encounter Miscellaneous Notes Miscellaneous - Nicki Holt D.N.P., C.N.P. - 03/13/2014 9:35 AM VENDING MACHINE FILLER Ambulatory Patient Summary [address] [id number] Visit Information Name: ARCHIE BAZAN [facility] Number: [id number] Current Date: 03/13/2014 09:35:16 Physicians [...] 30 minutes before breakfast New Routed to [place] [id number] levothyroxine (levothyroxine 75 mcg (0.075 mg) oral [...] appointment detail needed. Your Goals/Additional instructions: Source: [facility] POWERCHART Document Id: [id number] ING MACHINE FILLER Miscellaneous - Nicki Holt D.N.P., C.N.P. - 03/13/2014 9:35 AM VENDING MACHINE FILLER Ambulatory Discharge Medication List [address] [id number] Visit Information Name: ARCHIE BAZAN [facility] Number: [id number] Visit Date: 03/13/2014 09:35:13 Attending [...] 30 minutes before breakfast New Routed to [address] [address] levothyroxine (levothyroxine 75 mcg (0.075 [...] NICKI HOLT DNP, RIA Signed On:13-MAR-2014 09:35:03 Additional Information: Source: [facility] POWERCHART Document Id: [id number] ING MACHINE FILLER Miscellaneous - Vitaliy Darnell, L.P.N. - 03/13/2014 8:32 AM CST Adult Tobacco Warehouse Agent Intake/History Adult Tobacco Warehouse Agent Intake/History Entered On: 03/13/2014 8:48 VENDING MACHINE FILLER Performed On: 03/13/2014 8:32 VENDING MACHINE FILLER by VITALIY DARNELL LPN Intake Temperature Core : 36.4 DegC(Converted to: 97.5 DegF) (LOW) Peripheral Pulse Rate : 68 /min Respiratory Rate : 16 /min Heart Rhythm : Regular Systolic Blood Pressure : 120 mmHg Diastolic Blood Pressure : 76 mmHg NIBP Mean : 91 mmHg BP Location : Left upper extremity Blood Pressure Cuff Size : Large VITALIY DARNELL [facility] - 03/13/2014 8:50 VENDING MACHINE FILLER Height : 158 cm(Converted to: 5 ft 2 inch(es), 62 inch(es)) Actual Weight : 87.3 kg(Converted to: 192 lb 7 oz) Weight Source : Standing scale Dosing Weight Clinic : 87.3 kg Clinic BSA : 1.96 Body Mass Index : 34.97 kg/m2 VITALIY DARNELL [facility] - 03/13/2014 8:32 VENDING MACHINE FILLER General Info Information Given By : Patient Preferred Communication Mode : Verbal Languages : Amharic Is Patient Female and 13-50 no hysterectomy : No VITALIY DARNELL LPN - 03/13/2014 8:32 VENDING MACHINE FILLER Subjective Pain Symptoms : No VITALIY DARNELL LPN - 03/13/2014 8:32 VENDING MACHINE FILLER Dependent Habits Tobacco Use/Currently Using : No Tobacco Use/Last 12 months : No Tobacco Use/Advised to Quit : No Exposure to Tobacco Smoke : Care provider denies smoking in home Smoking Status : Never smoker VITALIY DARNELL [facility] - 03/13/2014 8:32 VENDING MACHINE FILLER Tobacco Use Grid Last Use : Never VITALIY DARNELL [facility] 03/13/2014 8:32 VENDING MACHINE FILLER Alcohol Use : No VITALIY DARNELL LPN 03/13/2014 8:32 VENDING MACHINE FILLER Caffeine Use Grid Caffeine Use : None Frequency : Occasionally Amount : 1 cup per week VITALIY DARNELL [facility] 03/13/2014 8:32 VENDING MACHINE FILLER Recreational Drug Use Grid Drug Use : None VITALIY DARNELL LPN - 03/13/2014 8:32 VENDING MACHINE FILLER ID Screen Drug Resistant Organism : No Travel Within Last 21 Days : No VITALIY DARNELL LPN - 03/13/2014 8:32 VENDING MACHINE FILLER Source: [employer] POWERCHART Document Id: [id number] VENDING MACHINE FILLER!11 ING MACHINE FILLER Telephone Encounter - Conversion, Historical Provider Ser - 12/21/2013 12:24 PM CST diarrhea Document Contains Addenda Addendum by JENA BEYER V on 23 December 2013 10:56:18 VENDING MACHINE FILLER Pt called but only able to LVM Addendum by NICKI HOLT DNP, FNP on 23 December 2013 10:46:40 VENDING MACHINE FILLER From: NICKI HOLT DNP, FNP To: [place] Nurse Line; Sent: 12/23/2013 10:46:40 VENDING MACHINE FILLER Subject: RE: diarrhea Addendum by NICKI HOLT DNP, FNP on 23 December 2013 10:46:37 VENDING MACHINE FILLER pt. to give it more time, her diarrhea may have been from a gastroentesital viral infection. pleaseadvise. Addendum by JENA BEYER V on 22 December 2013 08:58:24 VENDING MACHINE FILLER From: JENA BEYER V ([place] Nurse Line) To: NICKI HOLT DNP, FNP; Sent: 12/22/2013 08:58:24 VENDING MACHINE FILLER Subject: RE: diarrhea Pt reported she picked up the 1000mg ER not immediate release. Pharmacy contacted & verified this, so diarrhea in NOT from IR .Should pt just give it a bit more time? Or fill the new RX for 500mg ER x2 tabs & divide the dosing? Addendum by NICKI HOLT DNP, FNP on 22 December 2013 05:33:14 VENDING MACHINE FILLER From: NICKI HOLT DNP, FNP To: [place] Nurse Line; Sent: 12/22/2013 05:33:14 VENDING MACHINE FILLER Subject: RE: diarrhea Addendum by NICKI HOLT DNP, FNP on 22 December 2013 05:33:06 VENDING MACHINE FILLER I had originally ordered 1000 ER but she told me due to cost the 500 was cheaper, so I ordered the 500 (but this was not ER), I just sent a new script for the 500 ER to take 2 tabs daily, please inform pt. thank you. From: JENA BEYER V ([place] Nurse Line) To: NICKI HOLT DNP, FNP; Sent: 12/21/2013 12:24:09 VENDING MACHINE FILLER Subject: diarrhea Pt spoke w/ Expert RN [...] her @ above # to discuss [facility] Document Id: [id number] Miscellaneous - Nicki Holt, D.N.P., C.N.P. - 12/20/2013 8:26 PM VENDING MACHINE FILLER Normal Results Letter 20 December 2013 ARCHIE BAZAN [address] [place] [id number] Dear ARCHIE BAZAN, I am pleased to report that your Pap results were normal! Your next pap will be due in November or 2016!!! Please follow up with us as we discussed during your visit or sooner if you have any concerns. If you have questions or concerns, please do not hesitate to call our office. Sincerely, NICKI HOLT [address] [address] Electronic Signature Electronically Signed By: NICKI HOLT DNP, FNP On: 20 December 2013 This document has images extracted. Source[facility] Document Id: [id number] Electronically signed by Conversion, [facility] Blasting Contract Miner [id number] at 07/13/2016 1:27 PM CDT documented in this encounter Plan of Treatment Upcoming Encounters Date Type Specialty Care Team Description 01/22/2022 Office Visit Cardiovascular Disease Maritza Currie M.D. [address] [place], [place] [phone] (Wo rk) documented as of this encounter Visit Diagnoses Not on filedocumented in this encounter Additional Health Concerns Assessment Noted Time PHQ-9 Depression Total Score: 1 06/01/2013 1:42 PM CDT documented as of this encounter
--- OUTSIDE RECORDS SUMMARY | 2022-01-21 13:52 | XMS_ITS | Encounter Summary ---
:[address] [facility] Address [address] [place] [address] Care Team Providers Name Role Phone Unavailable Primary Care Provider Unavailable Encounter Details Date Type Department Care Team Description 08/31/2012 Hospital Encounter HX [facility] Jackson Mathis M. D. Social History [...] daily. Take 0 11/13/2021 with food for [employer]. documented as of this encounter Progress Notes Conversion, Historical Provider Ser - 08/31/2012 9:30 AM CDT [id number] Quick Note: Note: These results were ordered by a Referring Physician and have not been reviewed by a physician at [facility] in [place]. FAXED TO VICKEY HOLT COUDERAY ON 09/02/2012. [facility] Document Id: [id number] documented in this encounter Plan of Treatment Upcoming Encounters Date Type Specialty Care Team Description 01/22/2022 Office Visit Cardiovascular Disease Maritza Currie M.D. [address] [place], [place] [phone] (Wo rk) documented as of this encounter Visit Diagnoses Not on filedocumented in this encounter
--- OUTSIDE RECORDS SUMMARY | 2022-01-21 13:52 | XMS_ITS | Encounter Summary ---
:1945 Author Organization [facility] Address [address] [place] [address] Care Team Providers Name Role Phone Unavailable Primary Care Provider Unavailable Encounter Details Date Type Department Care Team Description 10/14/2012 Hospital Encounter HX [facility] Nicki Anthony, MAL, C.N.P., D. N.P. [address] [place] [address] (Wo rk) Social History Tobacco [...] daily. Take 0 11/13/2021 with food for [employer]. documented as of this encounter Progress Notes Conversion, Historical Provider Ser - 10/14/2012 9:50 AM CDT [id number] HEALTH & WELLNESS COACHING Patient was seen at [facility] in [place] on 10/14/2012 for a follow-up wellnesscoaching visit [...] ANNIE PÉREZ On: 10/28/2012 05:04 PM Source: [facility] MHSDOLBEYNONRADSYS Document Id: [id number] documented in this encounter Plan of Treatment Upcoming Encounters Date Type Specialty Care Team Description 01/22/2022 Office Visit Cardiovascular Disease Maritza Currie M.D. [address] [place], [place] [phone] (Wo rk) documented as of this encounter Visit Diagnoses Not on filedocumented in this encounter
--- OUTSIDE RECORDS SUMMARY | 2022-01-21 13:52 | XMS_ITS | Encounter Summary ---
:1945 Author Organization [facility] Address [address] [place] [address] Care Team Providers Name Role Phone Unavailable Primary Care Provider Unavailable Encounter Details Date Type Department Care Team Description 09/02/2012 Hospital Encounter [facility]X [facility] Nicki Anthony, MAL, C.N.P., D. N.P. [address] [place] [address] (Wo rk) Social History Tobacco [...] mouth daily. Take 0 11/13/2021 with food [employer]. documented as of this encounter Progress Notes Conversion, Historical Provider Ser - 09/02/2012 9:15 AM CDT [id number] HEALTH &WELLNESS COACHING Referring Physician: Nicki Anthony. [...] In addition to that she went on [employer]) and got a new used treadmill that [...] ANNIE PÉREZ On: 09/03/2012 03:50 PM Source: [facility] MHSDOLBEYNONRADSYS Document Id: [id number] documented in this encounter Miscellaneous Notes Miscellaneous - Vitaliy Darnell, L.P.N. - 09/02/2012 9:54 AM CDT General Message Document Contains Addenda Addendum by VITALIY DARNELL LPN on 02 September 2012 10:19:44 CDT done Addendum by OCTAVIO MONTES NP on 02 September 2012 10:01:31 CDT From: OCTAVIO MONTSE NP To: VITALIY DARNELL LPN; Sent: 09/02/2012 10:01:31 CDT Subject: RE: General Message Ok to order UA. From: VITALIY DARNELL LPN To: OCTAVIO MONTES NP; Sent: 09/02/2012 09:54:58 CDT Subject: General Message Marcial is still having symptoms from her uti, Is it okay if she just leaves a ua since Nicki's not here? Source: [facility] [employer] Document Id: [id number] documented in this encounter Plan of Treatment Upcoming Encounters Date Type Specialty Care Team Description 01/22/2022 Office Visit Cardiovascular Disease Maritza Currie M.D. [address] [place] [phone] (Wo rk) documented as of this encounter Procedures Procedure Name Priority Date/Time Associated Diagnosis Comme nts BACTERIAL CULTURE, Routine 09/02/2012 12:48 PM Re sults for this AEROBIC, URINE CDT procedure are in the results section. documented in this encounter Results Bacterial Culture, Aerobic, Urine (09/02/2012 12:48 PM CDT) [facility] Method Time Signature Bacterial POWERCHART [...]
--- OUTSIDE RECORDS SUMMARY | 2022-01-21 13:52 | XMS_ITS | Encounter Summary ---
:1945 Author Organization [facility] Address [address] [place] [address] Care Team Providers Name Role Phone Unavailable Primary Care Provider Unavailable Encounter Details Date Type Department Care Team Description 09/14/2012 Hospital Encounter [facility] Nicki Holt, MAL, C.N.P., D.N.P. [address], [place] [phone] (Wo rk) Social History [...] mouth daily. Take 0 11/13/2021 with food [employer]. documented as of this encounter Miscellaneous Notes Miscellaneous - Nicki Holt, Maritza.N.P., C.N.P. - 09/14/2012 7:51 PM CDT Normal Results Letter 14 September 2012 ARCHIE BAZAN [address] [place] [id number] Dear Archie GUNDERSON, Your urine test did [...] 4.00 - 6.00 Sincerely, NICKI HOLT [address] [place] [address] Electronic Signature Electronically Signed By: NICKI HOLT DNP, COOKING CASING AND DRYING SUPERVISOR On: 14 September 2012 This document has images extracted. Source: [facility] POWERCHART Document Id: [id number] Electronically signed by Conversion, [facility] Automobile Service Advisor [id number] at 07/16/2016 10:11 AM CDT documented in this encounter Plan of Treatment Upcoming Encounters Date Type Specialty Care Team Description 01/22/2022 Office Visit Cardiovascular Disease Maritza Currie M.D. [address] [place], [place] [phone] (Wo rk) documented as [...] LAB URINE ORDE [place] Performing Organization Address City/State/ZIP Code Phon e Number POWERCHART Urinalysis, Routine (09/14/2012 9:48 AM CDT) [facility] gist Method Time Signature HXUr Color Yellow Yellow POWERCHART Appearance Clear Clear POWERCHART Glucose Negative Negative POWERCHART HXBILIRUBIN Negative Negative POWERCHART Ketones, QL(U) Negative Negative POWERCHART Specific 1.020 1.000 - POWERCHART [place], POCT, U 1.030 pH, POCT, Urine 5.5 [...] (09/14/2012 9:42 AM CDT) Analysis Performed At [facility] Time Signature Hemoglobin A1c, 6.87 (H) [...]
--- OUTSIDE RECORDS SUMMARY | 2022-01-21 13:52 | XMS_ITS | Encounter Summary ---
:1945 Author Organization [facility] Address [address] [place] [address] Care Team Providers Name Role Phone Unavailable Primary Care Provider Unavailable Encounter Details Date Type Department Care Team Description 09/23/2012 Hospital Encounter [facility] Nicki Anthony, MAL, C.N.P., D. N.P. [address] [place] [address] (Wo rk) Social History Tobacco [...] daily. Take 0 11/13/2021 with food for [employer] [facility]. documented as of this encounter Progress Notes Conversion, Historical Provider Ser - 09/23/2012 8:47 AM CDT [id number] HEALTH & WELLNESS COACHING Patient was seen [...] ANNIE PÉREZ On: 10/12/2012 02:34 PM Source: [facility] MHSDOLBEYNONNATOSYS Document Id: [id number] documented in this encounter Plan of Treatment Upcoming Encounters Date Type Specialty Care Team Description 01/22/2022 Office Visit Cardiovascular Disease Maritza Currie M.D. [address] [place] [phone] (Wo rk) documented as of this encounter Visit Diagnoses Not on filedocumented in this encounter
--- OUTSIDE RECORDS SUMMARY | 2022-01-21 13:52 | XMS_ITS | Encounter Summary ---
:1945 Author Organization [facility] Address [address] [place] [address] Care Team Providers Name Role Phone Unavailable Primary Care Provider Unavailable Encounter Details Date Type Department Care Team Description 09/14/2012 Hospital Encounter [facility]X [facility] Nicki Holt, MAL, C.N.P., D. N.P. [address] [place] [address] (Wo rk) Social History Tobacco [...] mouth daily. Take 0 11/13/2021 with food [employer] documented as of this encounter Progress Notes Conversion, Historical Provider Ser - 09/14/2012 9:49 AM CDT [id number] CHIEF COMPLAINT/REASON FOR VISIT Patient was seen [...] successful in getting her new treadmill from [place] and is all set up and prepared [...] ANNIE PÉREZ On: 10/12/2012 02:34 PM Source: [facility] MHSDOLBEYNONRADSYS Document Id: [id number] documented in this encounter Miscellaneous Notes Miscellaneous - Diana Cardoza L.PJairoN. - 09/16/2012 2:41 PM CDT General Message [...] DIANA CARDOZA LPN To: NICKI HOLT DNP, DIRECTOR MEDICAL SCIENCE; Sent: 09/16/2012 14:41:57 CDT Subject: General Message [...] other suggestions I would call her back. [phone] Source: [facility] POWERCHART Document Id: [id number] documented in this encounter Plan of Treatment Upcoming Encounters Date Type Specialty Care Team Description 01/22/2022 Office Visit Cardiovascular Disease Maritza Currie M.D. [address] [place] [phone] (Wo rk) documented as of this encounter Visit Diagnoses Not on filedocumented in this encounter
--- OUTSIDE RECORDS SUMMARY | 2022-01-21 13:52 | XMS_ITS | Encounter Summary ---
:1945 Author Organization [facility] Address [address] [place] [address] Care Team Providers Name Role Phone Unavailable Primary Care Provider Unavailable Encounter Details Date Type Department Care Team Description 09/04/2012 Hospital Encounter [facility] Ne Garrison M.D. [address] [place] [phone] (Wo rk) Social History Tobacco Use [...] encounter Progress Notes Ne [place] M.D. - 09/04/2012 10:04 AM CDT [id number] CHIEF COMPLAINT/REASON FOR VISIT Question sinus infection. [...] plan Patient/Child/Caregiver expressed understanding of the content Ne Gabriel M.D./arnol Electronically Signed By: NE VILLAR MD On: 09/14/2012 09:09 AM Source: [facility] MHSDOLBEYNONRADSYS Document Id: [id number] documented in this encounter Miscellaneous Notes Miscellaneous - Sylvia Darnell, LJairoPJairoN. - 09/06/2012 7:18 PM CDT General Message Document Contains Addenda Addendum by VICKEY HOLT DNP, FNP on 07 September 2012 10:56:37 CDT noted. From: SYLVIA DARNELL LPN To: VICKEY HOLT DNP, FNP; Sent: 09/06/2012 19:18:21 CDT Subject: General Message Spoke Niurkaclemencia regarding MRI results and seeing Ortho. Marcial would like to go see Dr Velasco in [place]. She heard is really good. Marcial is gone on vacation 09/07/12-. Will set up her appointmentfor the and will leave information on answering maching per her request. Source: [facility] POWERCHART Document Id: [id number] Electronically signed by Sae [facility] Aerospace Quality Engineer [id number] at 07/16/2016 10:11 AM CDT Miscellaneous - Ne [place] M.D. - 09/04/2012 10:57 AM CDT Ambulatory Patient Summary [id number] [place] [address] Visit Information Name: MARCIAL BAZAN PAU [facility] Number: [id number] Current Date: 09/04/2012 10:57:39 Physicians Attending Provider: NE VILLAR MD Primary Care Provider: VICKEY HOLT [...] Date Time Location Reason Provider 09/16/2012 08:45 [facility] Family Med FOLLOW UP [facility] Health Cook Supervisor 09/23/2012 08:45 [facility] Cook Supervisor 09/30/2012 09:45 [facility] Cook Supervisor 10/07/2012 09:45 [facility] Cook Supervisor 10/14/2012 09:45 [facility] Cook Supervisor Your Goals/Additional instructions: Source: [facility] POWERCHART Document Id: [id number] Miscellaneous - Ne [place] M.D. - 09/04/2012 10:57 AM CDT Ambulatory Depart Summary [address] [address] Visit Information Name: MARCIAL BAZAN [facility] Number: [id number] Visit Date: 09/04/2012 10:57:38 Attending Provider: NE VILLAR MD Primary Care Provider: VICKEY HOLT DNP, GRAILS WEB APPLICATION DEVELOPER MARCIAL BAZAN has been given the following [...] your provider for clarification. Additional Information: Source: [facility] POWERCHART Document Id: [id number] Miscellaneous - Sylvia Darnell L.P.N. 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 [employer]ining Intake/History Entered On: 09/04/2012 10:20 CDT Performed On: 09/04/2012 10:15 CDT by SYLVIA DARNELL LPN Intake Chief Complaint : Head [...] Room air Weight Source : Other: refused SYLVIA DARNELL LPN - 09/04/2012 10:15 CDT General Info Information Given By : Patient Languages : Kiswahili SYLVIA DARNELL LPN - 09/04/2012 10:15 CDT Subjective Pain Symptoms : No SYLVIA DARNELL LPN - 09/04/2012 10:15 CDT Dependent Habits Tobacco Use/Currently Using : No Tobacco Use/Last 12 months : No Tobacco Use/Advised to Quit : No Exposure to Tobacco Smoke : Care provider denies smoking in home Smoking Status : Never smoker SYLVIA DARNELL LPN - 09/04/2012 10:15 CDT Tobacco Use Grid Last Use : Never SYLVIA DARNELL LPN - 09/04/2012 10:15 CDT Alcohol Use : No SYLVIA DARNELL LPN - 09/04/2012 10:15 CDT Caffeine Use Grid Caffeine Use : Current Type : Tea Frequency : Occasionally SYLVIA DARNELL LPN - 09/04/2012 10:15 CDT Recreational Drug Use Grid Drug Use : None SYLVIA DARNELL LPN - 09/04/2012 10:15 CDT Source: [facility] POWERCHART Document Id: [id number] CDT!38 documented in this encounter Plan of Treatment Upcoming Encounters Date Type Specialty Care Team Description 01/22/2022 Office Visit Cardiovascular Disease Maritza Currie M.D. [address] [place] [phone] (Wo rk) documented as of this encounter Visit Diagnoses Not on filedocumented in this encounter
--- OUTSIDE RECORDS SUMMARY | 2022-01-21 13:52 | XMS_ITS | Encounter Summary ---
:1945 Author Organization [facility] Address [address] [place] [address] Care Team Providers Name Role Phone Unavailable Primary Care Provider Unavailable Encounter Details Date Type Department Care Team Description 10/21/2012 Hospital Encounter [facility] Nicki Holt, MAL C.N.P., D.N.P. [address] [place], [place] [phone] (Wo rk) Social History [...] mouth daily. Take 0 11/13/2021 with food [employer]. documented as of this encounter Miscellaneous Notes Miscellaneous - Nicki Holt, Maritza.N.P., C.N.P. - 10/29/2012 9:13 AM CDT Results Notification Document Contains Addenda Addendum by PETRA RUSSELL LPN on 29 October 2012 15:36:24 CDT Patient called and updated she will follow new orders in medications and labs she reports that she has no concerns with bladder at this time From: NICKI HOLT DNP, FARM TRACTOR MECHANIC To: DIANA RYAN Justin DIRECTOR [employer]; Sent: 10/29/2012 09:13:44 CDT ! Show up: 10/29/2012 14:13:44 [facility] Subject: Results Notification [...] (H) 5.55 mcIU/mL (0.30 - 5.00) Source: [facility] POWERCHART Document Id: [id number] Electronically signed by Conversion, [facility] Juvenile Justice Officer [id number] at 07/16/2016 6:07 PM CDT Miscellaneous - Nciki Holt, D.N.P., C.N.P. - 10/21/2012 9:58 AM CDT Normal Results Letter 21 October 2012 ARCHIE BAZAN [address] [place] [id number] Dear ARCHIE BAZAN, Result Name Current Result [...] 4.00 - 6.00 Sincerely, NICKI HOLT [address] [place] [address] Electronic Signature Electronically Signed By: NICKI HOLT DNP, FNP On: 21 October 2012 This document has images extracted. Source: [facility] POWERCHART Document Id: [id number] Electronically signed by Conversion, [facility] Juvenile Justice Officer [id number] at 07/16/2016 6:07 PM CDT documented in this encounter Plan of Treatment Upcoming Encounters Date Type Specialty Care Team Description 01/22/2022 Office Visit Cardiovascular Disease Maritza Currie M.D. [address] [place], [place] [phone] (Wo rk) documented as [...] Culture, Aerobic, Urine (10/21/2012 9:12 AM CDT) [facility] Method Time Signature Bacterial POWERCHART Culture, Aerobic, Urine HXPre <10,000 cfu/mL POWERCHART Mixed ismael (multiple species present) Continuing incubation HXFinal >100,000 POWERCHART cfu/mL Mixed ismael (multiple species present) HXFinal No further POWERCHART work-up. Specimen (Source) Anatomical Collection Method Collection Time Re ceived Time Location / / Volume Laterality Micro Spec 10/21/2012 9:12 AM CDT Simone Mojica APRNN.PJairo, Maritza.N.P. LAB MICROBIOLO GY - GENERAL ORDERABLES Performing Organization Address [facility] Phon e Number POWERCHART HXUR % DYSMORPHIC RBC (10/21/2012 9:12 AM CDT) athologist Signature Dysmorphic RBC <=25 <=25 POWERCHART Specimen Anatomical Collection Method Collection Time Receive d Time (Source) Location / / Volume Laterality Urine 10/21/2012 9:12 AM 3 9:12 CDT AM CDT Deana Mojica APRN.N.PJairo, D.N.P. LAB HISTORICAL ORDERS Performing Organization Address [facility] Phon e Number POWERCHART Urine Microscopic (10/21/2012 [...] 9:12 AM 3 9:12 CDT AM CDT Deana Mojica APRN.N.P., D.N.P. LAB URINE ORDE RABLES Performing Organization Address [facility] Phon e Number POWERCHART Urinalysis, Routine (10/21/2012 9:12 AM CDT) athologist Signature HXUr Color Yellow Yellow POWERCHART Appearance Clear Clear POWERCHART Glucose Negative Negative POWERCHART HXBILIRUBIN 1+ Negative POWERCHART Comment: neg per visual exam 10/21/2012 09:30:58 CDT [id number] Ketones, QL(U) Negative Negative POWERCHART Specific [place], POCT, U 1.025 1.000 - 1.030 POWERCHART [...] LAB URINE ORDE RABLES Performing Organization Address City/[facility] Code Phon e Number POWERCHART (ABNORMAL) Hemoglobin A1c (10/21/2012 9:06 AM CDT) Analysis Performed At [facility]o [facility]ist Time Signature Hemoglobin A1c, 6.46 (H) 4.00 - POWERCHART B 6.00 Specimen (Source) Anatomical Collection Method Collection Time Re ceived Time Location / / Volume Laterality Blood 10/21/2012 9:06 AM CDT Nicki Holt APRN, C.N.P., D.N.P. LAB BLOOD ADD- ON Performing Organization Address City/[facility] Phon e Number POWERCHART (ABNORMAL) Lipid Panel [...] LAB BLOOD ADD- ON Performing Organization Address City/[facility] Code Phon e Number POWERCHART (ABNORMAL) Thyroid-Stimulating [...]
--- OUTSIDE RECORDS SUMMARY | 2022-01-21 13:52 | XMS_ITS | Encounter Summary ---
:1945 Author Organization [facility] Address [address] [place] [address] Care Team Providers Name Role Phone Unavailable Primary Care Provider Unavailable Encounter Details Date Type Department Care Team Description 11/04/2012 Hospital Encounter HX [facility] Nicki Anthony, MAL, C.N.P., D. N.P. [address] [place] [phone] (Wo rk) Social History [...] Provider Ser - 11/04/2012 8:47 AM CDT [id number] HEALTH & WELLNESS COACHING Referring Physician Nicki Anthony D.N.P./NereidaN.Payal. Patient was seen in [facility] for follow-up wellness coaching visit around [...] see every 2 weeks for 30 minutes. Luke Millan Electronically Signed By: LUKE PÉREZ On: 11/09/2012 12:47 PM Source: [facility] MHSDOLBEYNONRADSYS Document Id: [id number] documented in this encounter Miscellaneous Notes Miscellaneous - Diana Cardoza L.P.N. - 11/04/2012 5:06 PM CDT Ambulatory Vitals Height Weight Ambulatory Vitals Height Weight Entered On: 11/09/2012 17:06 CDT Performed On: 11/04/2012 17:06 CDT by DIANA ACRDOZA LPN Vitals/Ht/Wt Actual Weight : 81.5 kg(Converted to: 179 lb 11 oz) Weight Source : Standing scale Dosing Weight Clinic : 81.5 kg DIANA CARDOZA LPN - 11/09/2012 17:06 CDT Source: [facility] POWERCHART Document Id: [id number] CDT!5 documented in this encounter Plan of Treatment Upcoming Encounters Date Type Specialty Care Team Description 01/22/2022 Office Visit Cardiovascular Disease Maritza Currie M.D. [address] [place] [phone] (Wo rk) documented as of this encounter Visit Diagnoses Not on filedocumented in this encounter
--- OUTSIDE RECORDS SUMMARY | 2022-01-21 13:52 | XMS_ITS | Encounter Summary ---
:1945 Author Organization [facility] Address [address] [place] [address] Care Team Providers Name Role Phone Unavailable Primary Care Provider Unavailable Encounter Details Date Type Department Care Team Description 09/02/2012 Hospital Encounter [facility]X [facility] Nicki Anthony, MAL, C.N.P., D.N.P. [address] [place], [place] [phone] ([place]) Social History [...] daily. Take 0 11/13/2021 with food for [employer]. documented as of this encounter Plan of Treatment Upcoming Encounters Date Type Specialty Care Team Description 01/22/2022 Office Visit Cardiovascular Disease Maritza Currie M.D. [address] [place], [place] [phone] (Wo rk) documented as [...] Results Urine Microscopic (09/02/2012 9:53 AM CDT) [facility] Method Time Signature HXUr WBC 5-10 [...] 3 9:53 CDT AM CDT Sharon Montes N.PJairo LAB URINE ORDERABLES Performing Organization Address City/[facility]/ZIP Code Phon e Number POWERCHART Urinalysis, Routine (09/02/2012 9:53 AM CDT) [facility] Method Time Signature HXUr Color Yellow Yellow POWERCHART Appearance Clear Clear POWERCHART Glucose Negative Negative POWERCHART HXBILIRUBIN Negative Negative POWERCHART Ketones, QL(U) Negative Negative POWERCHART Specific 1.020 1.000 - POWERCHART [place], POCT, U 1.030 pH, POCT, Urine 5.5 [...]
--- OUTSIDE RECORDS SUMMARY | 2022-01-21 13:52 | XMS_ITS | Encounter Summary ---
:1945 Author Organization [facility] Address [address] [place] [address] Care Team Providers Name Role Phone Unavailable Primary Care Provider Unavailable Encounter Details Date Type Department Care Team Description 09/30/2012 Hospital Encounter HX [facility] Nicki Anthony, MAL, C.N.P., D. N.P. [address] [place] [phone] (Wo rk) Social History Tobacco [...] mouth daily. Take 0 11/13/2021 with food [employer]. documented as of this encounter Progress Notes Conversion, Historical Provider Ser - 09/30/2012 9:45 AM CDT [id number] HEALTH & WELLNESS COACHING VISIT CHIEF COMPLAINT/REASON [...] to have a play date with her [id number]-hz-lyg in the next week and is looking [...] Source: [facility] MHSDOLBEYNONRADSYS Document Id: [id number] documented in this encounter Plan of Treatment Upcoming Encounters Date Type Specialty Care Team Description 01/22/2022 Office Visit Cardiovascular Disease Maritza Currie M.D. [address] [place] [phone] (Wo rk) documented as of this encounter Visit Diagnoses Not on filedocumented in this encounter
--- OUTSIDE RECORDS SUMMARY | 2022-01-21 13:52 | XMS_ITS | Encounter Summary ---
:1945 Author Organization [facility] Address [address] [place] [address] Care Team Providers Name Role Phone Unavailable Primary Care Provider Unavailable Encounter Details Date Type Department Care Team Description 11/16/2012 Hospital Encounter HX [facility] ME Vickey Holt, MAL, Deana.N.P., D. N.P. [address] [place] [address] (Wo rk) Social History Tobacco [...] D.N.P., C.N.P. - 11/16/2012 8:36 AM CDT [id number] CHIEF COMPLAINT/REASON FOR VISIT Preoperative physical examination. HISTORY OF PRESENT ILLNESS The patient is a 67-year-old female who presents to the clinic today for a routine preoperative examination for right shoulder rotator cuff repair that she is going to be undergoing on 11/23/[address] Velasco through [facility] [place]. She otherwise indicates that she is doing [...] and reactive to light and accommodation OROPHARYNX: [place] and moist. TMs: Bilateral tympanic membranes are [...] a ventricular rate 66 beats per minute, ID interval 142 ms, QRS duration 82 ms, [...] type 2 diabetes mellitus. I recommend that wifzkfj-dif-vfhneax medication be discontinued 1 week prior to [...] Patient/Child/Caregiver expressed understanding of the content Verena Lucas.P./F.N.P/[facility] Electronically Signed By: VICKEY HOLT DNP, FNP On: 11/16/2012 11:01 AM Source: [facility] MHSDOLBEYNONRADSYS Document Id: [id number] documented in this encounter Miscellaneous Notes Miscellaneous - Vickey Holt D.N.P., C.N.P. - 11/16/2012 10:11 AM CDT Ambulatory Depart Summary [address] [address] Visit Information Name: BENI JOSE MIGUELPATRICK MAI [facility] Number: [id number] Visit Date: 11/16/2012 10:11:07 [...] for clarification. Additional Information: Source: [facility] POWERCHART Document Id: [id number] Miscellaneous - Vickey Holt D.N.P., C.N.P. - 11/16/2012 10:11 AM CDT Ambulatory Patient Summary [address] [place] [address] Visit Information Name: MARCIAL BAZAN [facility] Number: [id number] Current Date: 11/16/2012 10:11:08 [...] Date Time Location Reason Provider 11/18/2012 09:15 [facility] Family Med F/U - HEALTH PAIN MANAGEMENT NURSE [facility] Health Quarry Equipment Operator Your Goals/Additional instructions: Source: [facility] POWERCHART Document Id: [id number] Miscellaneous - Vickey Holt, D.N.P., C.N.P. - 11/16/2012 9:04 AM CDT Normal Results Letter 16 November 2012 MARCIAL BAZAN [address] [place] [address] [id number] Dear MARCIAL BAZAN, I am pleased to [...] (%) (L) 17.0 11/16/2012 23.0 - 44.0 [place] % (%) 5.9 11/16/2012 2.0 - 18.0 Eos % (%) 2.0 11/16/2012 1.0 - 5.0 Baso % (%) 0.5 11/16/2012 0.0 - 1.0 Neutro Absolute (10(9)/L) 5.52 11/16/2012 1.70 - 7.00 Lymph Absolute (x10(9)/L) 1.26 11/16/2012 0.90 - 2.90 [place] Absolute (x10(9)/L) 0.44 11/16/2012 0.30 - 0.90 Eos Absolute (x10(9)/L) 0.15 11/16/2012 0.05 - 0.50 Baso Absolute (x10(9)/L) 0.04 11/16/2012 0.00 - 0.30 Differential? Auto 11/16/2012 Sincerely, VICKEY HOLT [address] [place], [place] [id number] Electronic Signature Electronically Signed By: VICKEY HOLT DNP, POULTRY HATCHERY MAN On: 16 November 2012 This document has images extracted. Source: [facility] POWERCHART Document Id: [id number] Miscellaneous - Sylvia Darnell, L.P.N. - 11/16/2012 8:50 AM CDT Adult Repair Miller Intake/History Adult Repair Miller Intake/History Entered On: 11/16/2012 8:57 CDT Performed On: 11/16/2012 8:50 CDT by SYLVIA DARNELL DUNGEON MASTER Intake Chief Complaint : Pre-op for right [...] Information Given By : Patient Languages : Syriac SYLVIA DARNELL LPN - 11/16/2012 8:50 CDT [...] Use Grid Last Use : Never SYLVIA DRANELL LPN - 11/16/2012 8:50 CDT Alcohol Use : No SYLVIA DARNELL LPN - 11/16/2012 8:50 CDT Caffeine Use Grid Caffeine Use : Current Type : Tea Frequency : Occasionally SYLVIA DARNELL LPN - 11/16/2012 8:50 CDT Recreational Drug Use Grid Drug Use : None SYLVIA DARNELL LPN - 11/16/2012 8:50 CDT [facility] Document Id: [id number] CDT!39 Miscellaneous - Sylvia Darnell L.P.N. - 11/16/2012 8:50 AM CDT Obstructive Sleep Apnea Obstructive Sleep Apnea Entered On: 11/16/2012 8:58 CDT Performed On: 11/16/2012 8:50 CDT by SYLVIA DARNELL LPN JUAN Screening Known Obstructive Sleep Apnea : No - NOT diagnosed with JUAN ASCENCIOALEJANDRO Anderson DUNGEON MASTER - 11/16/2012 8:50 CDT JUAN Assessment Do you have high blood pressure or have you been told to take medication for high blood pressure? : No Frequency of Snoring : Rarely (1-2 times per year) Frequency of Gasping, Choking, Snorting : Never Total Number of Historical Features : 0 Neck Circumference (cm) : 38/39 Total Sleep Apnea Clinical Score Calc : 2 CHRISTIA[place] SYLVIA Anderson DUNGEON MASTER - 11/16/2012 8:50 CDT Source: [facility] BioVascularCHART Document Id: [id number] CDT!10 documented in this encounter Plan of Treatment Upcoming Encounters Date Type Specialty Care Team Description 01/22/2022 Office Visit Cardiovascular Disease Maritza Currie M.D. [address] [place] [address] [phone] (Wo rk) documented as of this [...] (ABNORMAL) Automated Differential (11/16/2012 8:49 AM CDT) [facility] gist Method Time Signature Neutro % 74.6 42.0 - POWERCHART 77.0 Lymphocytes % 17.0 (L) 23.0 - POWERCHART 44.0 HX [place] % 5.9 2.0 - 18.0 POWERCHART HX [...] LAB BLOOD ADD- ON Performing Organization Address City/[facility] Phon e Number POWERCHART CBC with Differential (11/16/2012 8:49 AM CDT) P athologist Signature Leukocytes 7.4 3.4 - 10.5 POWERCHART [id number] Erythrocytes 4.07 3.90 - POWERCHART 5.03 [id number] Hemoglobin 12.0 12.0 - POWERCHART 15.5 GDL [...] LAB BLOOD ADD- ON Performing Organization Address [facility] Phon e Number POWERCHART (ABNORMAL) CMP (Comprehensive [...] POWERCHART GDL HXeGFR (MDRD) >60 >=60 POWERCHART [id number] 2 eGFR Black/ >60 >=60 POWERCHART Eritrean [id number] Specimen (Source) Anatomical Collection Method Collection Time Re ceived Time Location / / Volume Laterality Blood 11/16/2012 8:49 AM CDT Vickey Holt APRN, C.N.P., D.N.P. LAB BLOOD ADD- ON Performing Organization Address City/State/ZIP Code Phon e Number POWERCHART documented in this encounter Visit Diagnoses Not on filedocumented in this encounter
--- OUTSIDE RECORDS SUMMARY | 2022-01-21 13:52 | XMS_ITS | Encounter Summary ---
:1945 Author Organization [facility] Address [address] [place] [address] Care Team Providers Name Role Phone Unavailable Primary Care Provider Unavailable Encounter Details Date Type Department Care Team Description 11/04/2012 Hospital Encounter HX [facility] ME Nicki Holt, MAL, C.N.P., D. N.P. [address] [place] [address] (Wo rk) Social History Tobacco [...] Progress Notes Nicki Holt D.N.P., C.N.P. - 11/04/2012 2:24 PM CDT [id number] CHIEF COMPLAINT/REASON FOR VISIT 1. Review medications. [...] DNP, FNP On: 11/05/2012 07:59 AM Source: [facility] MHSDOLBEYNONRADSYS Document Id: [id number] documented in this encounter Miscellaneous Notes Miscellaneous - Nicki Holt D.N.P., C.N.P. - 11/04/2012 3:50 PM CDT Ambulatory Depart Summary [address] [address] Visit Information Name: ELIDASTEVENARCHIE [facility] Number: [id number] Visit Date: 11/04/2012 15:50:45 [...] your provider for clarification. Additional Information: Source: [facility] POWERCHART Document Id: [id number] Miscellaneous - Nicki Holt D.N.P., C.N.P. - 11/04/2012 3:50 PM CDT Ambulatory Patient Summary [address] [address] Visit Information Name: ARCHIE BAZAN [facility] Number: [id number] Current Date: 11/04/2012 15:50:46 [...] Date Time Location Reason Provider 11/18/2012 09:15 [facility] Family Med F/U - HEALTH POST MANAGER [facility] Health Stoker Installation Mechanic Your Goals/Additional instructions: Source: [facility] POWERCHART Document Id: [id number] Miscellaneous - Vitaliy Darnell, L.P.N. - 11/04/2012 2:31 PM CDT Adult Health Care Consultant Intake/History Adult Health Care Consultant Intake/History Entered On: 11/04/2012 14:39 CDT Performed On: 11/04/2012 14:31 CDT by VITALIY DARNELL OIL FIELD RIG BUILDER Intake Chief Complaint : Consult on right [...] Mass Index : 31.6 kg/m2 VITALIY DARNELL [facility] - 11/04/2012 14:31 CDT General Info Information Given By : Patient Languages : Slovenian VITALIY DARNELL [facility] 11/04/2012 14:31 CDT Subjective Pain Symptoms : No VITALIY DARNELL [facility] - 11/04/2012 14:31 CDT Dependent Habits Tobacco Use/Currently Using : No Tobacco Use/Last 12 months : No Exposure to Tobacco Smoke : Care provider denies smoking in home Smoking Status : Never smoker VITALIY DARNELL [facility] - 11/04/2012 14:31 CDT Tobacco Use Grid Last Use : Never VITALIY DARNELL [facility] 11/04/2012 14:31 CDT Alcohol Use : No VITALIY DARNELL [facility] 11/04/2012 14:31 CDT Caffeine Use Grid Caffeine Use : Current Type : Tea Frequency : Occasionally VITALIY DARNELL [facility] - 11/04/2012 14:31 CDT Recreational Drug Use Grid Drug Use : None VITALIY DARNELL [facility] 11/04/2012 14:31 CDT [facility] Document Id: [id number] CDT!40 documented in this encounter Plan of Treatment Upcoming Encounters Date Type Specialty Care Team Description 01/22/2022 Office Visit Cardiovascular Disease Maritza Currie M.D. [address] [place] [phone] (Wo rk) documented as of this encounter Visit Diagnoses Not on filedocumented in this encounter
--- OUTSIDE RECORDS SUMMARY | 2022-01-21 13:52 | XMS_ITS | Encounter Summary ---
:1945 Author Organization [facility] Address [address] [place] [address] Care Team Providers Name Role Phone Unavailable Primary Care Provider Unavailable Encounter Details Date Type Department Care Team Description 10/21/2012 Hospital Encounter HX [facility] Nicki Anthony, MAL, C.N.P., D. N.P. [address] [place] [address] (Wo rk) Social History Tobacco [...] mouth daily. Take 0 11/13/2021 with food [facility]. documented as of this encounter Progress Notes Conversion, Historical Provider Ser - 10/21/2012 9:05 AM CDT [id number] HEALTH & WELLNESS COACHING VISIT Referring Physician Nicki Anthony, Maritza.N.P./FJairoN.P Patient was seen in [facility] for follow-up wellness coaching visit around [...] ANNIE PÉREZ On: 10/28/2012 05:03 PM Source: [facility] MHSDOLBEYNONRADSYS Document Id: [id number] documented in this encounter Plan of Treatment Upcoming Encounters Date Type Specialty Care Team Description 01/22/2022 Office Visit Cardiovascular Disease Maritza Currie M.D. [address] [place] [phone] (Wo rk) documented as of this encounter Visit Diagnoses Not on filedocumented in this encounter
--- OUTSIDE RECORDS SUMMARY | 2022-01-21 13:53 | XMS_ITS | Encounter Summary ---
:1945 Author Organization [facility] Address [address] [place] [address] Care Team Providers Name Role Phone Unavailable Primary Care Provider Unavailable Encounter Details Date Type Department Care Team Description 03/09/2012 Hospital Encounter [facility] Nicki Holt, MAL, C.N.P., D. N.P. [address] [place] [address] (Wo rk) Social History Tobacco [...] Comments Blood Pressure 130/60 03/09/2012 1:31 PM STEAM SHOVEL OPERATOR Pulse 77 03/09/2012 1:31 PM STEAM SHOVEL OPERATOR Temperature - - Respiratory Rate 18 03/09/2012 1:31 PM STEAM SHOVEL OPERATOR Oxygen Saturation - - Inhaled Oxygen Concentration - - Weight 88.8 kg (195 lb 12.3 oz) 03/09/2012 1:31 PM STEAM SHOVEL OPERATOR Height 161 cm (5' 3.39) 03/09/2012 1:31 PM STEAM SHOVEL OPERATOR Body Mass Index 34.26 03/09/2012 1:31 PM STEAM SHOVEL OPERATOR documented in this encounter Medications at Time of Discharge Medication Sig Dispensed Refills Start Date End Date ASPIRIN ORAL Take 81 mg by mouth daily. Take 0 11/13/2021 with food for heart health. documented as of this encounter Progress Notes Nicki Holt, Maritza.N.P., C.N.P. - 03/09/2012 1:14 PM CST [id number] CHIEF COMPLAINT/REASON FOR VISIT Heart palpitations. HISTORY [...] x 3. HEAD: Normocephalic/atraumatic. PUPILS: GENE. OROPHARYNX: [place] and moist. TMs: Bilateral TMs are clear, [...] DNP, FNP On: 03/18/2012 08:45 AM Source: [facility] MHSDOLBEYNONRADSYS Document Id: [id number] M SHOVEL OPERATOR documented in this encounter Nursing Notes Andrea Malhotra R.N. - 03/09/2012 2:16 PM CST 30 day event monitor 30 day event monitor was ordered for symptomatic palpitations lasting less than 3 minutes. Monitor will be mailed to patient. Electronically Signed By: ANDREA MALHOTRA RN On: 03/09/2012 02:18 PM Source: [facility] POWERCHART Document Id: [id number] M SHOVEL OPERATOR documented in this encounter Miscellaneous Notes Miscellaneous - Nicki Holt D.N.P., C.N.PJairo - 03/09/2012 5:07 PM STEAM SHOVEL OPERATOR Ambulatory Patient Summary [address] [place] [address] Visit Information Name: ARCHIE BAZAN [facility] Number: [id number] Current Date: 03/09/2012 17:07:55 [...] No Appointments found Your Goals/Additional instructions: Source: [facility] POWERCHART Document Id: [id number] M SHOVEL OPERATOR Miscellaneous - Nicki Holt D.N.P., C.N.P. - 03/09/2012 5:07 PM STEAM SHOVEL OPERATOR Ambulatory Depart Summary [facility] [address] [place] [address] Visit Information Name: ARCHIE BAZAN [facility] Number: [id number] Visit Date: 03/09/2012 17:07:54 [...] your provider for clarification. Additional Information: Source: [facility] POWERCHART Document Id: [id number] M SHOVEL OPERATOR Miscellaneous - Mel Batista L.P.N. - 03/09/2012 1:33 PM CST Health Assessment Health Assessment Entered On: 03/09/2012 13:33 STEAM SHOVEL OPERATOR Performed On: 03/09/2012 13:33 STEAM SHOVEL OPERATOR by MEL BATISTA LPN Health Assessment Complete Health Assessment Complete or Modified : Annual Health Assessment Annual Health Assessment Completed : Yes MEL BATISTA LPN - 03/09/2012 13:33 STEAM SHOVEL OPERATOR Nutrition Nutrition Risk Factors by History Adult : None MEL BATISTA LPN - 03/09/2012 13:33 STEAM SHOVEL OPERATOR Functional Current Daily Living Assistance : None MEL BATISTA LPN - 03/09/2012 13:33 STEAM SHOVEL OPERATOR Dependent Habits Tobacco Use/Currently Using : No Exposure to Tobacco Smoke : Care provider denies smoking in home Smoking Status : Never smoker MEL BATISTA LPN - 03/09/2012 13:33 STEAM SHOVEL OPERATOR Caffeine Use Grid Caffeine Use : Current Type : Tea Frequency : Occasionally MEL BATISTA LPN - 03/09/2012 13:33 STEAM SHOVEL OPERATOR Recreational Drug Use Grid Drug Use : None MEL BATISTA LPN - 03/09/2012 13:33 STEAM SHOVEL OPERATOR Psychosocial Domestic Abuse Concerns : None MEL BATISTA LPN - 03/09/2012 13:33 STEAM SHOVEL OPERATOR Advance Directive Advanced Directives : No MEL BATISTA LPN - 03/09/2012 13:33 STEAM SHOVEL OPERATOR Educ Needs Learning Style Preference Adult Grid Patient : None Family : None MEL BATISTA LPN - 03/09/2012 13:33 STEAM SHOVEL OPERATOR Source: [facility] POWERCHART Document Id: [id number] M SHOVEL OPERATOR Miscellaneous - Mel Batista, L.P.N. - 03/09/2012 1:31 PM CST Adult Upholsterer Outside Intake/History Adult Upholsterer Outside Intake/History Entered On: 03/09/2012 13:33 STEAM SHOVEL OPERATOR Performed On: 03/09/2012 13:31 STEAM SHOVEL OPERATOR by MEL BATISTA LPN Intake Temperature Core [...] 34.26kg/m2 MEL BATISTA LPN - 03/09/2012 13:31 STEAM SHOVEL OPERATOR Subjective Pain Symptoms : No MEL BATISTA LPN - 03/09/2012 13:31 STEAM SHOVEL OPERATOR Dependent Habits Tobacco Use/Currently Using : No Exposure to Tobacco Smoke : Care provider denies smoking in home Smoking Status : Never smoker Alcohol Use : No MEL BATISTA LPN - 03/09/2012 13:31 STEAM SHOVEL OPERATOR Caffeine Use Grid Caffeine Use : Current Type : Tea Frequency : Occasionally MEL BATISTA LPN - 03/09/2012 13:31 STEAM SHOVEL OPERATOR Recreational Drug Use Grid Drug Use : None MEL BATISTA LPN - 03/09/2012 13:31 STEAM SHOVEL OPERATOR Allergy Allergies (Active) azithromycin Estimated Onset Date: Unspecified ; Created By: PETRA RUSSELL LPN; Reaction Status: Active ; Category: Drug ; Substance: azithromycin ; Type: Allergy ; Updated By: PETRA RUSSELL LPN; Reviewed Date: 03/09/2012 13:21 STEAM SHOVEL OPERATOR Benicar Estimated Onset Date: Unspecified ; Created By: PETRA RUSSELL LPN; Reaction Status: Active ; Category: Drug ; Substance: Benicar ; Type: Allergy ; Updated By: PETRA RUSSELL LPN; Reviewed Date: 03/09/2012 13:21 STEAM SHOVEL OPERATOR Source: [facility] POWERCHART Document Id: [id number] M SHOVEL OPERATOR documented in this encounter Plan of Treatment Upcoming Encounters Date Type Specialty Care Team Description 01/22/2022 Office Visit Cardiovascular Disease Maritza Currie M.D. [address] [place] [phone] (Wo rk) documented as of this encounter Visit Diagnoses Not on filedocumented in this encounter
--- OUTSIDE RECORDS SUMMARY | 2022-01-21 13:53 | XMS_ITS | Encounter Summary ---
:1945 Author Organization [facility] Address [address] [place] [address] Care Team Providers Name Role Phone Unavailable Primary Care Provider Unavailable Encounter Details Date Type Department Care Team Description 06/25/2011 Hospital Encounter HX NO MAPPING Dandy Mccarthy P.T. [address] [place], [place] [phone] Social History Tobacco Use [...] Mccarthy P.T. - 06/25/2011 12:00 AM CDT [id number] Message left on pt's voice confirmed voice mail with PT contact information. Source: [facility] RWMCHXTRANSXRTFSYS Document Id: [id number] documented in this encounter Plan of Treatment Upcoming Encounters Date Type Specialty Care Team Description 01/22/2022 Office Visit Cardiovascular Disease Maritza Currie M.D. [address] [place], [place] [phone] (Wo rk) documented as of this encounter Visit Diagnoses Not on filedocumented in this encounter
--- OUTSIDE RECORDS SUMMARY | 2022-01-21 13:53 | XMS_ITS | Encounter Summary ---
:1945 Author Organization [facility] Address [address] [place] [address] Care Team Providers Name Role Phone Unavailable Primary Care Provider Unavailable Encounter Details Date Type Department Care Team Description 06/15/2012 Hospital Encounter HX [facility] Nicki Holt, MAL, C.N.P., D.N.P. [address] [place], [place] [phone] (Wo rk) Social History [...] mouth daily. Take 0 11/13/2021 with food [employer] [facility]. documented as of this encounter Miscellaneous Notes Miscellaneous - Nicki Holt, Maritza.N.P., C.N.P. - 06/18/2012 12:35 PM CDT Normal Results Letter 18 Jun 2012 ARCHIE BAZAN [address] [place] [id number] Dear ARCHIE BAZAN, I am pleased to report that your results from the following diagnostic test(s) are almost normal!!!! (Your cholesterols are EXCELLENT!!!) Please follow up with us as we discussed during your visit oniel if you have any concerns. If you [...] 4.00 - 6.00 Sincerely, NICKI HOLT [address] [place] [address] Electronic Signature Electronically Signed By: NICKI HOLT DNP, DISPATCHER ELECTRIC POWER On: 18 Jun 2012 This document has images extracted. Source: [facility] POWERCHART Document Id: [id number] documented in this encounter Plan of Treatment Upcoming Encounters Date Type Specialty Care Team Description 01/22/2022 Office Visit Cardiovascular Disease Maritza Currie M.D. [address] [place], [place] [phone] (Wo rk) documented as [...] (06/15/2012 8:10 AM CDT) Analysis Performed At [facility] Time Signature Creatinine, 86.8 30.0 - POWERCHART Random, U 125.0 MGDL HXU Albumin % <12.0 (L) 12.0 - POWERCHART 30.0 MGL Albumin/Creati <14 0 - 25 POWERCHART nine Ratio MGGM Specimen (Source) Anatomical Collection Method Collection Time Re ceived Time Location / / Volume Laterality Urine 06/15/2012 8:10 AM CDT Nicki Holt APRN, C.N.P., D.N.P. LAB URINE ORDE RABLES Performing Organization Address City/[facility]/ZIP Code Phon e Number POWERCHART (ABNORMAL) Lipid [...] (06/15/2012 8:05 AM CDT) Analysis Performed At [facility] Time Signature Hemoglobin A1c, 6.96 (H) [...]
--- OUTSIDE RECORDS SUMMARY | 2022-01-21 13:53 | XMS_ITS | Encounter Summary ---
:1945 Author Organization [facility] Address [address] [place] [address] Care Team Providers Name Role Phone Unavailable Primary Care Provider Unavailable Encounter Details Date Type Department Care Team Description 08/12/2012 Hospital Encounter HX [facility] ME Nicki Antohny, MAL, C.N.P., D. N.P. [address] [place] [address] (Wo rk) Social History Tobacco [...] daily. Take 0 11/13/2021 with food for [employer] [facility]. documented as of this encounter Progress Notes Conversion, Historical Provider Ser - 08/12/2012 8:56 AM CDT [id number] HEALTH AND WELLNESS COACHING The patient was seen at [facility] in [place] on 08/12/2012 for a follow-up wellness coaching [...] rotator cuff. She has reached out to [facility] for a massage on her shoulder [...] weekly for 30 minutes visits ongoing. Annie P[facility] Electronically Signed By: ANNIE PÉREZ On: 08/23/2012 10:34 AM Source: [facility] MHSDOLBEYNONRADSYS Document Id: [id number] documented in this encounter Plan of Treatment Upcoming Encounters Date Type Specialty Care Team Description 01/22/2022 Office Visit Cardiovascular Disease Maritza Currie M.D. [address] [place], [place] [phone] (Wo rk) documented as of this encounter Visit Diagnoses Not on filedocumented in this encounter
--- OUTSIDE RECORDS SUMMARY | 2022-01-21 13:53 | XMS_ITS | Encounter Summary ---
:1945 Author Organization [facility] Address [address] [place] [address] Care Team Providers Name Role Phone Unavailable Primary Care Provider Unavailable Encounter Details Date Type Department Care Team Description 07/15/[address] [facility] ME Nicki Anthony, MAL, C.N.P., D. N.P. [address] [place] [address] (Wo rk) Social History Tobacco [...] daily. Take 0 11/13/2021 with food for [employer] [facility]. documented as of this encounter Progress Notes Conversion, Historical Provider Ser - 07/15/2012 8:44 AM CDT [id number] HEALTH AND WELLNESS COACHING Patient was seen in [facility] in [place] on 07/15/2012 for wellness coaching follow-up visit [...] moving forward towards her wellness goals. Annie Pérez/[facility] Electronically Signed By: ANNIE PÉREZ On: 08/23/2012 10:34 AM Source: [facility] MHSDOLBEYNONRADSYS Document Id: [id number] documented in this encounter Plan of Treatment Upcoming Encounters Date Type Specialty Care Team Description 01/22/2022 Office Visit Cardiovascular Disease Maritza Currie M.D. [address] [place], [place] [phone] (Wo rk) documented as of this encounter Visit Diagnoses Not on filedocumented in this encounter
--- OUTSIDE RECORDS SUMMARY | 2022-01-21 13:53 | XMS_ITS | Encounter Summary ---
:1945 Author Organization [facility] Address [address] [place] [address] Care Team Providers Name Role Phone Unavailable Primary Care Provider Unavailable Encounter Details Date Type Department Care Team Description 08/26/2012 Hospital Encounter [facility] Nicki Anthony, MAL, C.N.P., D. N.P. [address] [place] [address] (Wo rk) Social History Tobacco [...] mouth daily. Take 0 11/13/2021 with food [employer]. documented as of this encounter Progress Notes Conversion, Historical Provider Ser - 08/26/2012 8:59 AM CDT [id number] HEALTH & WELLNESS COACHING Referring Physician: Nicki [...] ANNIE PÉREZ On: 08/27/2012 04:00 PM Source: [facility] MHSDOLBEYNONRADSYS Document Id: [id number] documented in this encounter Plan of Treatment Upcoming Encounters Date Type Specialty Care Team Description 01/22/2022 Office Visit Cardiovascular Disease Maritza Currie M.D. [address] [place] [phone] (Wo rk) documented as of this encounter Visit Diagnoses Not on filedocumented in this encounter
--- OUTSIDE RECORDS SUMMARY | 2022-01-21 13:53 | XMS_ITS | Encounter Summary ---
:1945 Author Organization [facility] Address [address] [place] [address] Care Team Providers Name Role Phone Unavailable Primary Care Provider Unavailable Encounter Details Date Type Department Care Team Description 09/15/2011 Hospital Encounter HX [facility] ME Vickey Holt, MAL, C.N.P., D. N.P. [address] [place] [address] (Wo rk) Social History [...] Progress Notes Vickey Holt, Maritza.N.P., C.N.P. - 09/15/2011 12:00 AM CDT [id number] CHIEF COMPLAINT/REASON FOR VISIT Vaginal discharge and [...] DNP, FNP On: 09/16/2011 07:26 AM Source: [facility] MHSDOLBEYNONRADSYS Document Id: [id number] documented in this encounter Miscellaneous Notes Miscellaneous - Sylvia Darnell L.P.N. - 11/17/2011 5:35 PM CDT Quality Measures Quality Measures Entered On: 11/18/2011 17:36 CDT Performed On: 11/17/2011 17:35 CDT by SYLVIA DARNELL LPN Diabetes Date of Last Eye Exam : 11/17/2011 CDT SYLVIA DARNELL LPN - 11/18/2011 17:35 CDT Source: [facility] POWERCHART Document Id: [id number] Miscellaneous - Vickey Holt D.N.PJairo, C.N.P. - 09/15/2011 3:43 PM CDT Ambulatory Patient Summary [address] [address] Visit Information Name: MARCIAL BAZAN Current Date: [...] No Appointments found Your Goals/Additional instructions: Source: [facility] POWERCHART Document Id: [id number] Miscellaneous - Vickey Holt D.N.Payal., C.N.P. - 09/15/2011 3:43 PM CDT Ambulatory Depart Summary [facility] [address] [place] [address] Visit Information Name: MARCIAL BAZAN Visit Date: [...] your provider for clarification. Additional Information: Source: [facility] POWERCHART Document Id: [id number] Miscellaneous - Azra Blandon L.P.N. - 09/15/2011 2:38 PM CDT Adult Asphalt Screed Operator Intake/History Adult Asphalt Screed Operator Intake/History Entered On: 09/15/2011 14:45 CDT Performed [...] LPN; Reviewed Date: 04/28/2011 7:57 CDT Source: [facility] POWERCHART Document Id: [id number] documented in this encounter Plan of Treatment Upcoming Encounters Date Type Specialty Care Team Description 01/22/2022 Office Visit Cardiovascular Disease Maritza Currie M.D. [address] [place], [place] [phone] (Wo rk) documented as [...]
--- OUTSIDE RECORDS SUMMARY | 2022-01-21 13:53 | XMS_ITS | Encounter Summary ---
:1945 Author Organization [facility] Address [address] [place] [address] Care Team Providers Name Role Phone Unavailable Primary Care Provider Unavailable Encounter Details Date Type Department Care Team Description 05/06/2012 Hospital Encounter [facility] ME Nicki Anthony, AML, C.N.P., D. N.P. [address] [place] [address] (Wo rk) Social History Tobacco [...] Provider Ser - 05/06/2012 8:58 AM CDT [id number] HEALTH AND WELLNESS COACHING REFERRING PHYSICIAN: Nicki Anthony, Maritza.N.P./F.N.P CHIEF COMPLAINT/REASON FOR VISIT The patient was seen at the [facility] in [place] on 05/06/2012. The patient is here for [...] KIND bar or ARUN bar at the [employer] [facility]. FOLLOW-UP PLAN Will follow-up with patient in 1 to 2 weeks time and continue on with her wellness plan. Annie Pérez/[facility] Electronically Signed By: ANNIE PÉREZ On: 06/14/2012 11:54 AM Source: [facility] MHSDOLBEYNONRADSYS Document Id: [id number] documented in this encounter Plan of Treatment Upcoming Encounters Date Type Specialty Care Team Description 01/22/2022 Office Visit Cardiovascular Disease Maritza Currie M.D. [address] [place], [place] [phone] (Wo rk) documented as of this encounter Visit Diagnoses Not on filedocumented in this encounter
--- OUTSIDE RECORDS SUMMARY | 2022-01-21 13:53 | XMS_ITS | Encounter Summary ---
:1945 Author Organization [facility] Address [address] [place] [address] Care Team Providers Name Role Phone Unavailable Primary Care Provider Unavailable Encounter Details Date Type Department Care Team Description 03/31/2012 Hospital Encounter HX [facility] Nicki Anthony, MAL, C.N.P., D. N.P. [address] [place] [address] (Wo rk) Social History Tobacco [...] daily. Take 0 11/13/2021 with food for [employer]. documented as of this encounter Consult Notes Conversion, Historical Provider Ser - 03/31/2012 11:01 AM CST [id number] CHIEF COMPLAINT/REASON FOR VISIT The patient was [...] Relaxation CD or stretching. Annie Pérez/[facility] DOCID: [id number] cc: Nicki Anthony D.N.P./NereidaN.P Electronically Signed By: ANNIE PÉREZ On: 04/27/2012 06:08 PM Source: [facility] MHSDOLBEYNONRADSYS Document Id: [id number] documented in this encounter Plan of Treatment Upcoming Encounters Date Type Specialty Care Team Description 01/22/2022 Office Visit Cardiovascular Disease Maritza Currie M.D. [address] [place] [phone] (Wo rk) documented as of this encounter Visit Diagnoses Not on filedocumented in this encounter
--- OUTSIDE RECORDS SUMMARY | 2022-01-21 13:53 | XMS_ITS | Encounter Summary ---
:1945 Author Organization [facility] Address [address] [place] [address] Care Team Providers Name Role Phone Unavailable Primary Care Provider Unavailable Encounter Details Date Type Department Care Team Description 06/10/2012 Hospital Encounter [facility]X [facility] Nicki Anthony, MAL, C.N.P., D. N.P. [address] [place] [address] (Wo rk) Social History Tobacco [...] daily. Take 0 11/13/2021 with food for [employer] health. documented as of this encounter Progress Notes Conversion, Historical Provider Ser - 06/10/2012 9:52 AM CDT [id number] HEALTH & WELLNESS COACHING CHIEF COMPLAINT/REASON FOR VISIT The patient was seen at [facility] in [place] on 06/10/2012 for a follow-up wellness coaching [...] ANNIE PÉREZ On: 06/14/2012 11:52 AM Source: [facility] MHSDOLBEYNONRADSYS Document Id: [id number] documented in this encounter Plan of Treatment Upcoming Encounters Date Type Specialty Care Team Description 01/22/2022 Office Visit Cardiovascular Disease Maritza Currie M.D. [address] [place], [place] [phone] (Wo rk) documented as of this encounter Visit Diagnoses Not on filedocumented in this encounter
--- OUTSIDE RECORDS SUMMARY | 2022-01-21 13:53 | XMS_ITS | Encounter Summary ---
:1945 Author Organization [facility] Address [address] [place] [address] Care Team Providers Name Role Phone Unavailable Primary Care Provider Unavailable Encounter Details Date Type Department Care Team Description 03/22/[address] [facility] Nicki Holt APRN, C.N.P., D.N.P. [address] [place], [place] [phone] (Wo rk) Social History [...] mouth daily. Take 0 11/13/2021 with food [employer]. documented as of this encounter Miscellaneous Notes Miscellaneous - Nicki Holt, Maritza.N.Kvng, C.N.P. - 03/22/2012 2:59 PM SENIOR MARKETING SPECIALIST Results Notification Document Contains Addenda Addendum by JOHN CONCEPCION LPN on 23 March 2012 10:08:45 SENIOR MARKETING SPECIALIST Results sent to patient via mail. From: NICKI HOLT DNP, FIELD SERVICE TECHNICIAN POULTRY To: VITALIY VILLEDA LPN Sent: 03/22/2012 14:59:45 SENIOR MARKETING SPECIALIST ! Show up: 03/22/2012 20:59:45 [facility] Subject: Results Notification Actions: Note to Nurse Source: [facility] POWERCHART Document Id: [id number] Electronically signed by Conversion, [facility] Psychiatric Clinician [id number] at 07/16/2016 8:07 PM CDT documented in this encounter Plan of Treatment Upcoming Encounters Date Type Specialty Care Team Description 01/22/2022 Office Visit Cardiovascular Disease Maritza Currie M.D. [address] [place] [phone] (Wo rk) documented as of this encounter Procedures Procedure Name Priority Date/Time Associated Comments Diagnosis ALANINE AMINOTRANSFERASE Routine 03/22/2012 1:38 Results for this (ALT), S/P PM SENIOR MARKETING SPECIALIST procedure are i n the results section. documented in this encounter Results ALT (Alanine Aminotransferase) (03/22/2012 1:38 PM SENIOR MARKETING SPECIALIST) P athologist Signature Alanine 18 15 - 37 UL POWERCHART Amniotransferas e, LD Specimen (Source) Anatomical Collection Method Collection Time Re ceived Time Location / / Volume Laterality Blood 03/22/2012 1:38 PM SENIOR MARKETING SPECIALIST Nicki Holt PSYCHOLOGY TECH, C.N.P., D.N.P. LAB BLOOD ADD- ON Performing Organization Address City/State/ZIP Code Phon e Number POWERCHART documented in this encounter Visit Diagnoses Not on filedocumented in this encounter
--- OUTSIDE RECORDS SUMMARY | 2022-01-21 13:53 | XMS_ITS | Encounter Summary ---
:1945 Author Organization [facility] Address [address] [place] [address] Care Team Providers Name Role Phone Unavailable Primary Care Provider Unavailable Encounter Details Date Type Department Care Team Description 08/31/2012 Hospital Encounter HX NO MAPPING Nicki Anthony, MAL, C.N.P., D.N.P. [address] [place], [place] [phone] (Wo rk) Social History [...] Take 0 11/13/2021 with food for heart [employer]. documented as of this encounter Plan of Treatment Upcoming Encounters Date Type Specialty Care Team Description 01/22/2022 Office Visit Cardiovascular Disease Maritza Currie M.D. [address] [place], [place] [phone] (Wo rk) documented as of this encounter Visit Diagnoses Not on filedocumented in this encounter
--- OUTSIDE RECORDS SUMMARY | 2022-01-21 13:53 | XMS_ITS | Encounter Summary ---
:1945 Author Organization [facility] Address [address] [place] [address] Care Team Providers Name Role Phone Unavailable Primary Care Provider Unavailable Encounter Details Date Type Department Care Team Description 08/31/2012 Hospital Encounter HX NO MAPPING Nicki Anthony, MAL, C.N.P., D.N.P. [address] [place], [place] [phone] (Wo rk) Social History [...] Take 0 11/13/2021 with food for heart [employer]. documented as of this encounter Plan of Treatment Upcoming Encounters Date Type Specialty Care Team Description 01/22/2022 Office Visit Cardiovascular Disease Maritza Currie M.D. [address] [place], [place] [phone] (Wo rk) documented as of this encounter Visit Diagnoses Not on filedocumented in this encounter
--- OUTSIDE RECORDS SUMMARY | 2022-01-21 13:53 | XMS_ITS | Encounter Summary ---
:1945 Author Organization [facility] Address [address] [place] [address] Care Team Providers Name Role Phone Unavailable Primary Care Provider Unavailable Encounter Details Date Type Department Care Team Description 07/08/2012 Hospital Encounter HX [facility] Nicki Anthony, MAL, C.N.P., D. N.P. [address] [place] [address] (Wo rk) Social History Tobacco [...] mouth daily. Take 0 11/13/2021 with food [employer]. documented as of this encounter Progress Notes Conversion, Historical Provider Ser - 07/08/2012 8:52 AM CDT [id number] CHIEF COMPLAINT/REASON FOR VISIT Follow-up wellness coaching [...] ANNIE PÉREZ On: 07/15/2012 12:02 PM Source: [facility] MHSDOLBEYNONRADSYS Document Id: [id number] documented in this encounter Plan of Treatment Upcoming Encounters Date Type Specialty Care Team Description 01/22/2022 Office Visit Cardiovascular Disease Maritza Currie M.D. [address] [place] [phone] (Wo rk) documented as of this encounter Visit Diagnoses Not on filedocumented in this encounter
--- OUTSIDE RECORDS SUMMARY | 2022-01-21 13:53 | XMS_ITS | Encounter Summary ---
:1945 Author Organization [facility] Address [address] [place] [address] Care Team Providers Name Role Phone Unavailable Primary Care Provider Unavailable Encounter Details Date Type Department Care Team Description 08/20/2012 Hospital Encounter [facility] Nicki Anthony, MAL, C.N.P., D. N.P. [address] [place] [address] (Wo rk) Social History Tobacco [...] mouth daily. Take 0 11/13/2021 with food [employer] health. documented as of this encounter Progress Notes Conversion, Historical Provider Ser - 08/20/2012 8:55 AM CDT [id number] HEALTH AND WELLNESS COACHING Patient was seen at [facility] in [place] on 08/20/2012 for follow-up wellness coaching visit [...] patient is extremely excited and motivated. Annie Pérez/[facility] Electronically Signed By: ANNIE PÉREZ On: 08/23/2012 10:34 AM Source: [facility] MHSDOLBEYNONRADSYS Document Id: [id number] documented in this encounter Miscellaneous Notes Miscellaneous - Macy Fraga, RJairoN. - 08/23/2012 10:26 AM CDT Prior Auth- Metformin From: MACY CALDERA RN Sent: 08/23/2012 10:26:09 CDT Subject: Prior Auth- Metformin Prior Auth for Metformin HCL ER 1000mg approved by [employer] 08/16/12- 08/16/13. [place] notified, pt notified. Source: [facility] POWERCHART Document Id: [id number] Electronically signed by Conversion, [facility] Religious Leader [id number] at 07/16/2016 1:01 AM CDT documented in this encounter Plan of Treatment Upcoming Encounters Date Type Specialty Care Team Description 01/22/2022 Office Visit Cardiovascular Disease Maritza Currie M.D. [address] [place], [place] [phone] (Wo rk) documented as of this encounter Visit Diagnoses Not on filedocumented in this encounter
--- OUTSIDE RECORDS SUMMARY | 2022-01-21 13:53 | XMS_ITS | Encounter Summary ---
:1945 Author Organization [facility] Address [address] [place] [address] Care Team Providers Name Role Phone Unavailable Primary Care Provider Unavailable Encounter Details Date Type Department Care Team Description 03/09/2012 Hospital Encounter [facility] Nicki Holt, Deana RESENDEZ.N.P., D.N.P. [address] [place], [place] [phone] (Wo rk) Social History [...] mouth daily. Take 0 11/13/2021 with food [employer]. documented as of this encounter Miscellaneous Notes Miscellaneous - Nicki Holt, Maritza.N.P., C.N.P. - 03/11/2012 3:52 PM [employer]NER Results Notification Document Contains Addenda Addendum by ROBERT JIANG RN on 11 March 2012 16:23:40 [employer] Letter mailed to patient. From: NICKI HOLT DNP, CIGARETTE MAKING MACHINE HOPPER FEEDER To: ROBERT JIANG RN Sent: 03/11/2012 15:52:35 [employer]NER ! Show up: 03/11/2012 21:52:35 [facility] Subject: Results Notification Actions: Note to Nurse Source: [facility] POWERCHART Document Id: [id number] Electronically signed by Conversion, [facility] Air Route Traffic Controller [id number] at 07/16/2016 9:06 PM CDT documented in this encounter Plan of Treatment Upcoming Encounters Date Type Specialty Care Team Description 01/22/2022 Office Visit Cardiovascular Disease Maritza Currie M.D. [address] [place] [phone] (Wo rk) documented as of this encounter Procedures Procedure Name Priority Date/Time Associated Comments Diagnosis LIPID PANEL, S Routine 03/09/2012 2:35 PM Results for this SK[employer]DER [employer]NER procedure are i n the results section. ELECTROLYTE PANEL, S Routine 03/09/2012 2:35 PM R esults for this [employer]NER procedure are i n the results section. THYROID-STIMULATING Routine 03/09/2012 2:35 PM Re sults for this HORMONE-SENSITIVE SKIDDER [employer]NER procedure are in (S-TSH) the results section. HEMOGLOBIN A1C, B Routine 03/09/2012 2:35 PM Resu lts for this SKIDDER [employer]NER procedure are i n the results section. documented in this encounter Results (ABNORMAL) Thyroid-Stimulating Hormone-Sensitive (s-TSH) (03/09/2012 2:35 PM SKIDDER RUNNER) Analysis Performed At [facility] Time Signature TSH 6.99 (H) 0.30 - 5.00 POWERCHART (Thyrotropin) MCIUML Specimen (Source) Anatomical Collection Method Collection Time Re ceived Time Location / / Volume Laterality Blood 03/09/2012 2:35 PM SKIDDER RUNNER Nicki Holt APRN, C.N.P., D.N.P. LAB BLOOD ADD- ON Performing Organization Address City/State/ZIP Code Phon e Number POWERCHART (ABNORMAL) Hemoglobin A1c (03/09/2012 2:35 PM SKIDDER RUNNER) Analysis Performed At [facility] logis Time Signature Hemoglobin A1c, 7.45 (H) 4.00 - POWERCHART B 6.00 Specimen (Source) Anatomical Collection Method Collection Time Re ceived Time Location / / Volume Laterality Blood 03/09/2012 2:35 PM SKIDDER [employer]NER Nicki Holt APRN C.N.P., D.N.P. LAB BLOOD ADD- ON Performing Organization Address City/State/ZIP Code Phon e Number POWERCHART Electrolyte Panel (03/09/2012 2:35 PM SKIDDER RUNNER) P athologist Signature Sodium, S 139.8 135.0 - POWERCHART 145.0 MML Potassium, S 4.0 3.6 - 4.8 POWERCHART MMOLL Chloride, S 102 100 - 108 POWERCHART MMOLL CO2 Total 27.0 23.0 - 29.0 POWERCHART MMOLL Anion Gap 11 10 - 20 POWERCHART MMOLL Specimen (Source) Anatomical Collection Method Collection Time Re ceived Time Location / / Volume Laterality Blood 03/09/2012 2:35 PM SKIDDER RUNNER Nicki Holt APRN C.N.P., D.N.P. LAB BLOOD ADD- ON Performing Organization Address City/[facility] Code Phon e Number POWERCHART (ABNORMAL) Lipid Panel (03/09/2012 2:35 PM SKIDDER RUNNER) P athologist Signature Cholesterol, 208 (H) 0 [...] / Volume Laterality Blood 03/09/2012 2:35 PM SKIDDER RUNNER Nicki Holt APRN, C.N.P., D.N.P. LAB BLOOD ADD- ON Performing Organization Address City/State/ZIP Code Phon e Number POWERCHART documented in this encounter Visit Diagnoses Not on filedocumented in this encounter
--- OUTSIDE RECORDS SUMMARY | 2022-01-21 13:53 | XMS_ITS | Encounter Summary ---
:1945 Author Organization [facility] Address [address] [place] [address] Care Team Providers Name Role Phone Unavailable Primary Care Provider Unavailable Encounter Details Date Type Department Care Team Description 12/05/2011 Hospital Encounter [facility] Nicki Anthony, MAL, C.N.P., D.N.P. [address] [place], [place] [phone] (Wo rk) Social History [...] Cardiovascular Disease Maritza Currie M.D. [address] [place], [place] [phone] (Wo rk) documented as [...]
--- OUTSIDE RECORDS SUMMARY | 2022-01-21 13:53 | XMS_ITS | Encounter Summary ---
:1945 Author Organization [facility] Address [address] [place] [address] Care Team Providers Name Role Phone Unavailable Primary Care Provider Unavailable Encounter Details Date Type Department Care Team Description 06/25/2012 Hospital Encounter [facility] ME Nicki Anthony, MAL, C.N.P., D. N.P. [address] [place] [address] (Wo rk) Social History Tobacco [...] daily. Take 0 11/13/2021 with food for [employer] health. documented as of this encounter Progress Notes Conversion, Historical Provider Ser - 06/25/2012 3:44 PM CDT [id number] HEALTH AND WELLNESS COACHING Patient was seen at [facility] in [place] June 25, 2012, for a follow-up wellnesscoaching [...] week for her diabetes wellness plan. Annie Pérez/[facility] Electronically Signed By: ANNIE PÉREZ On: 07/15/2012 12:02 PM Source: [facility] MHSDOLBEYNONRADSYS Document Id: [id number] documented in this encounter Plan of Treatment Upcoming Encounters Date Type Specialty Care Team Description 01/22/2022 Office Visit Cardiovascular Disease Maritza Currie M.D. [address] [place] [phone] (Wo rk) documented as of this encounter Visit Diagnoses Not on filedocumented in this encounter
--- OUTSIDE RECORDS SUMMARY | 2022-01-21 13:53 | XMS_ITS | Encounter Summary ---
:1945 Author Organization [facility] Address [address] [place] [address] Care Team Providers Name Role Phone Unavailable Primary Care Provider Unavailable Encounter Details Date Type Department Care Team Description 04/30/2012 Hospital Encounter H[facility] Nicki Anthony, MAL, C.N.P., D. N.P. [address] [place] [address] (Wo rk) Social History Tobacco [...] by mouth daily. Take 0 11/13/2021 with [employer]. documented as of this encounter Progress Notes Conversion, Historical Provider Ser - 04/30/2012 10:52 AM CDT [id number] HEALTH & WELLNESS COACHING REFERRING PHYSICIAN Nicki Anthony, D.N.P./F.N.P. CHIEF COMPLAINT/REASON FOR VISIT Patient is seen [...] out and continue on our wellness path. nAnie Millan Electronically Signed By: ANNIE PÉREZ On: 06/14/2012 11:54 AM Source: [facility] MHSDOLBEYNONRADSYSuzy Document Id: [id number] documented in this encounter Plan of Treatment Upcoming Encounters Date Type Specialty Care Team Description 01/22/2022 Office Visit Cardiovascular Disease Maritza Currie M.D. [address] [place], [place] [phone] (Wo rk) documented as of this encounter Visit Diagnoses Not on filedocumented in this encounter
--- OUTSIDE RECORDS SUMMARY | 2022-01-21 13:53 | XMS_ITS | Encounter Summary ---
:1945 Author Organization [facility] Address [address] [place] [address] Care Team Providers Name Role Phone Unavailable Primary Care Provider Unavailable Encounter Details Date Type Department Care Team Description 04/29/2012 [facility] Nicki Holt, MAL, C.N.P., D. N.P. [address] [place] [address] (Wo rk) Social History Tobacco [...] D.N.P., C.N.P. - 04/29/2012 1:50 PM CDT [id number] CHIEF COMPLAINT/REASON FOR VISIT Diabetic examination. HISTORY OF PRESENT ILLNESS The patient is a 66-year-old female who presents to the clinic today for a routine diabetic examination. Presently at this time, she is working with our health and financial coach for her diabetes in which she [...] and reactive to light and accommodation. OROPHARYNX: [place] and moist. TMs: Bilateral tympanic membranes are [...] of the content Nicki Holt D.N.P./F.N.P/shi DOCID: [id number] Electronically Signed By: NICKI HOLT DNP, FNP On: 05/04/2012 07:35 PM Source: [facility] MHSDOLBEYNONRADSYS Document Id: [id number] documented in this encounter Miscellaneous Notes Miscellaneous - Nicki Holt D.N.Kvng, C.N.P. - 04/29/2012 3:00 PM CDT Ambulatory Patient Summary [address] [address] Visit Information Name: ARCHIE BAZAN [facility] Number: [id number] Current Date: 04/29/2012 15:00:41 [...] Date Time Location Reason Provider 04/30/2012 10:45 [facility] Signal System Testing Maintainer 05/06/2012 08:45 [facility] Signal System Testing Maintainer Your Goals/Additional instructions: Source: [facility] POWERCHART Document Id: [id number] Miscellaneous - Nicki Holt D.N.P., C.N.P. - 04/29/2012 3:00 PM CDT Ambulatory Depart Summary [facility] [address] [place] [address] Visit Information Name: ARCHIE BAZAN [facility] Number: [id number] Visit Date: 04/29/2012 15:00:40 [...] your provider for clarification. Additional Information: Source: [facility] POWERCHART Document Id: [id number] Miscellaneous - Nicki Holt D.N.P., C.N.P. - 04/29/2012 2:58 PM CDT Quality Measures Quality Measures Entered On: 04/29/2012 14:59 CDT Performed On: 04/29/2012 14:58 CDT by NICKI HOLT DNP, FIRE TENDER Diabetes Date of Last Eye Exam : [...] Check : Intact Intact NICKI HOLT DNP, FIRE TENDER - 04/29/2012 14:58 CDT NICKI HOLT DNP, FNP - 04/29/2012 14:58CDT [facility] Document Id: [id number] Miscellaneous - Vitaliy Darnell L.PJairoNJairo - 04/29/2012 1:57 PM CDT Adult Track Service Worker Intake/History Adult Track Service Worker Intake/History Entered On: 04/29/2012 14:00 CDT Performed [...] Information Given By : Patient Languages : Guatemalan VITALIY DARNELL LPN - 04/29/2012 13:57 CDT [...] PETRA RUSSELL LPN; Reviewed Date: 03/09/2012 13:21 CIVIL DIVISION COMMANDER DEPUTY SHERIFF Benicar Estimated Onset Date: Unspecified ; Created By: PETRA RUSSELL LPN; Reaction Status: Active ; Category: Drug ; Substance: Benicar ; Type: Allergy ; Updated By: PETRA RUSSELL LPN; Reviewed Date: 03/09/2012 13:21 CIVIL DIVISION COMMANDER DEPUTY SHERIFF Source: [facility] POWERCHART Document Id: [id number] documented in this encounter Plan of Treatment Upcoming Encounters Date Type Specialty Care Team Description 01/22/2022 Office Visit Cardiovascular Disease Maritza Currie M.D. [address] [place] [address] [phone] (Wo rk) documented as of this encounter Visit Diagnoses Not on filedocumented in this encounter
--- OUTSIDE RECORDS SUMMARY | 2022-01-21 13:53 | XMS_ITS | Encounter Summary ---
:1945 Author Organization [facility] Address [address] [place] [address] Care Team Providers Name Role Phone Unavailable [...] Cardiovascular Disease Maritza Currie M.D. [address] [place], [place] [phone] (Wo rk) documented as of this encounter Visit Diagnoses Not on filedocumented in this encounter
--- OUTSIDE RECORDS SUMMARY | 2022-01-21 13:53 | XMS_ITS | Encounter Summary ---
:1945 Author Organization [facility] Address [address] [place] [address] Care Team Providers Name Role Phone Unavailable Primary Care Provider Unavailable Encounter Details Date Type Department Care Team Description 04/08/2012 Hospital Encounter [facility] ME Nicki Anthony, MAL, C.N.P., D. N.P. [address] [place] [address] (Wo rk) Social History [...] mouth daily. Take 0 11/13/2021 with food [employer]. documented as of this encounter Progress Notes Conversion, Historical Provider Ser - 04/08/2012 8:51 AM CST [id number] HEALTH AND WELLNESS COACHING Followup visit: Today [...] at 10/10 confidence level. Annie Almonte DOCID: [id number] Electronically Signed By: SE ABEBA GALAN, INBOX [id number] On: 07/05/2014 02:05 PM Source: [facility] PRESTONSDCORI Document Id: [id number] Addendum by SE ABEBA GALAN, INBOX [email or web address] on 05 Jul 2014 14:05 CDT [facility] administratively closed. Provider on longer with facility. Report filed unsigned. Modified by and Electronically Signed by: SE ABEBA GALAN, INBOX LEA02 On: 07/05/2014 02:05 PM Source: [facility] POWERCHART Document Id: [id number] documented in this encounter Plan of Treatment Upcoming Encounters Date Type Specialty Care Team Description 01/22/2022 Office Visit Cardiovascular Disease Maritza Currie M.D. [address] [place] [phone] (Wo rk) documented as of this encounter Visit Diagnoses Not on filedocumented in this encounter
--- OUTSIDE RECORDS SUMMARY | 2022-01-21 13:53 | XMS_ITS | Encounter Summary ---
:1945 Author Organization [facility] Address [address] [place] [address] Care Team Providers Name Role Phone Unavailable Primary Care Provider Unavailable Encounter Details Date Type Department Care Team Description 04/15/2012 Hospital Encounter HX [facility] ME Nicki Anthony, MAL, C.N.P., D. N.P. [address] [place] [address] (Wo rk) Social History [...] mouth daily. Take 0 11/13/2021 with food [employer]. documented as of this encounter Progress Notes Conversion, Historical Provider Ser - 04/15/2012 8:44 AM CST [id number] HEALTH AND WELLNESS COACHING Followup visit: The [...] that it can. 2. Go to the [employer] shop to do her treadmill or walk indoors again. For the treadmill, her goal is todo one mile 3 times a week and if she cannot do that to walk 15 minutes every day indoors or outdoors if the weather permits. She is currently in action stage and is very motivated. Annie Almonte DOCID: [id number] Electronically Signed By: SE ABEBA GALAN, INBOX [email or web address] On: 07/05/2014 02:04 PM Source: [facility] MHSDOLBEYNSRINIVASASYS Document Id: [id number] Addendum by SE ABEBA GALAN INCRAIG LEA02 on 05 Jul 2014 14:04 CDT [facility] administratively closed. Provider on longer with facility. Report filed unsigned. Modified by and Electronically Signed by: SE ABEBA GALAN INBOX [email or web address] On: 07/05/2014 02:04 PM Source: [facility] POWERCHART Document Id: [id number] documented in this encounter Plan of Treatment Upcoming Encounters Date Type Specialty Care Team Description 01/22/2022 Office Visit Cardiovascular Disease Maritza Currie M.D. [address] [place] [phone] (Wo rk) documented as of this encounter Visit Diagnoses Not on filedocumented in this encounter
--- OUTSIDE RECORDS SUMMARY | 2022-01-21 13:53 | XMS_ITS | Encounter Summary ---
:1945 Author Organization [facility] Address [address] [place] [address] Care Team Providers Name Role Phone Unavailable Primary Care Provider Unavailable Encounter Details Date Type Department Care Team Description 06/03/2012 Hospital Encounter [facility] ME Nicki Anthony, MAL, C.N.P., D. N.P. [address] [place] [address] (Wo rk) Social History Tobacco [...] mouth daily. Take 0 11/13/2021 with food [employer]. documented as of this encounter Progress Notes Conversion, Historical Provider Ser - 06/03/2012 3:44 PM CDT [id number] HEALTH & WELLNESS COACHING REFERRING PHYSICIAN Nicki Anthony, D.N.P./F.N.P CHIEF COMPLAINT/REASON FOR VISIT Today, patient was seen on 06/03/[address] [facility] for wellness coaching around the area [...] ANNIE PÉREZ On: 06/14/2012 11:54 AM Source: [facility] MHSDOLBEYNONRADSYS Document Id: [id number] documented in this encounter Miscellaneous Notes Miscellaneous - Vitaliy Darnell LJairoP.N. - 06/03/2012 7:23 AM CDT Meaningful Use Influenza Exclusion Meaningful Use Influenza Exclusion Entered On: 06/03/2012 7:23 CDT Performed On: 06/03/2012 7:23 CDT by VITALIY DARNELL LPN Influenza Vaccine Exclusion Influenza Vaccine Exclusion : Patient declined VITALIY DARNELL LPN - 06/03/2012 7:23 CDT Source: [facility] POWERCHART Document Id: [id number] documented in this encounter Plan of Treatment Upcoming Encounters Date Type Specialty Care Team Description 01/22/2022 Office Visit Cardiovascular Disease Maritza Currie M.D. [address] [place] [phone] (Wo rk) documented as of this encounter Visit Diagnoses Not on filedocumented in this encounter
--- OUTSIDE RECORDS SUMMARY | 2022-01-21 13:53 | XMS_ITS | Encounter Summary ---
:1945 Author Organization [facility] Address [address] [place] [address] Care Team Providers Name Role Phone Unavailable Primary Care Provider Unavailable Encounter Details Date Type Department Care Team Description 08/06/2012 Hospital Encounter [facility] ME Nicki Anthony, MAL, C.N.P., D. N.P. [address] [place] [address] (Wo rk) Social History Tobacco [...] daily. Take 0 11/13/2021 with food for [employer]. documented as of this encounter Progress Notes Conversion, Historical Provider Ser - 08/06/2012 9:49 AM CDT [id number] HEALTH AND WELLNESS COACHING The patient was seen at [facility] in [place] for follow-up wellness coaching visit around the [...] moving forward in her wellness goals. Annie Pérez/[facility] Electronically Signed By: ANNIE PÉREZ On: 08/23/2012 10:34 AM Source: [facility] MHSDOLBEYNONRADSYS Document Id: [id number] documented in this encounter Plan of Treatment Upcoming Encounters Date Type Specialty Care Team Description 01/22/2022 Office Visit Cardiovascular Disease Maritza Currie M.D. [address] [place], [place] [phone] (Wo rk) documented as of this encounter Visit Diagnoses Not on filedocumented in this encounter
--- OUTSIDE RECORDS SUMMARY | 2022-01-21 13:53 | XMS_ITS | Encounter Summary ---
:1945 Author Organization [facility] Address [address] [place] [address] Care Team Providers Name Role Phone Unavailable Primary Care Provider Unavailable Encounter Details Date Type Department Care Team Description 07/22/2012 Hospital Encounter [facility] ME Nicki Anthony, MAL, C.N.P., D. N.P. [address] [place] [address] (Wo rk) Social History Tobacco [...] daily. Take 0 11/13/2021 with food for [employer] health. documented as of this encounter Progress Notes Conversion, Historical Provider Ser - 07/22/2012 10:09 AM CDT [id number] HEALTH AND WELLNESS COACHING The patient was seen at [facility] in [place] on the date of 07/22/2012 around the [...] weekly meeting with her wellness goals. Annie Pérez/[facility] Electronically Signed By: ANNIE PÉREZ On: 08/23/2012 10:33 AM Source: [facility] MHSDOLBEYNONRADSYS Document Id: [id number] documented in this encounter Plan of Treatment Upcoming Encounters Date Type Specialty Care Team Description 01/22/2022 Office Visit Cardiovascular Disease Maritza Currie M.D. [address] [place], [place] [phone] (Wo rk) documented as of this encounter Visit Diagnoses Not on filedocumented in this encounter
--- OUTSIDE RECORDS SUMMARY | 2022-01-21 13:53 | XMS_ITS | Encounter Summary ---
:1945 Author Organization [facility] Address [address] [place] [address] Care Team Providers Name Role Phone Unavailable Primary Care Provider Unavailable Encounter Details Date Type Department Care Team Description 05/20/2012 Hospital Encounter [facility] ME Nicki Anthony, MAL, C.N.P., D. N.P. [address] [place] [address] (Wo rk) Social History Tobacco [...] daily. Take 0 11/13/2021 with food for [employer]. documented as of this encounter Progress Notes Conversion, Historical Provider Ser - 05/20/2012 3:43 PM CDT [id number] HEALTH AND WELLNESS COACHING REFERRING PHYSICIAN: Nicki Anthony, D.N.P./F.N.P. CHIEF COMPLAINT/REASON FOR VISIT The patient was seen at the [facility] in [place] on 05/20/2012 for a follow-up visit in [...] It was and the holidays so next time sheis [...] and continue on with our sessions. Annie Pérez/[facility] Electronically Signed By: ANNIE PÉREZ On: 06/14/2012 11:54 AM Source: [facility] MHSDOLBEYNONRADSYS Document Id: [id number] documented in this encounter Plan of Treatment Upcoming Encounters Date Type Specialty Care Team Description 01/22/2022 Office Visit Cardiovascular Disease Maritza Currie M.D. [address] [place] [phone] (Wo rk) documented as of this encounter Visit Diagnoses Not on filedocumented in this encounter
--- OUTSIDE RECORDS SUMMARY | 2022-01-21 13:53 | XMS_ITS | Encounter Summary ---
:1945 Author Organization [facility] Address [address] [place] [address] Care Team Providers Name Role Phone Unavailable Primary Care Provider Unavailable Encounter Details Date Type Department Care Team Description 12/17/2011 Hospital Encounter [facility] ME Nicki Holt, MAL, C.N.P., D. N.P. [address] [place] [address] (Wo rk) Social History Tobacco [...] this encounter Nursing Notes Rogers Steiner - 12/17/2011 3:23 PM CDT Roller Machine Operator Intake (Adult) Roller Machine Operator Intake (Adult) Entered On: 12/17/2011 15:26 CDT Performed On: 12/17/2011 15:23 CDT by ROGERS STEINER building engineer Program Type : Post Program Diabetes Referring Provider : JERMAN ARIAS MD Special needs : None Method Used for DSME : Individual Diabetes Type : Type 2 19 years and older Ethnicity : Chose Not to Disclose Diabetes Visit Summary : Discussed meal plan and snacks. [facility] Time Spent With Patient : 60 Minutes ROGERS STEINER RN - 12/17/2011 15:23 CDT Education Diabetes Education Grid Topics : Disease process, Nutritional Management - Small Portions, Physical activity Individuals Taught : Patient Barriers to Learning : None evident Teaching Method : Explanation, Printed materials Teaching Evaluation : Verbalizes understanding ROGERS STEINER RN - 12/17/2011 15:23 CDT Post-program Education/Goals Diabetes Post-program Goals grid Post-program Goal #1 Post-program Goal #2 Date goal set : 12/16/2011 CDT 12/17/2011 CDT Goal : Use Plate Method or [employer] My Weight Solution for 1 meal each day Related Content Area : Healthy eating ROGERS STEINER RN - 12/17/2011 15:23 CDT ROGERS STEINER RN - 12/17/2011 15:23 CDT Source: [facility] [employer] Document Id: [id number] documented in this encounter Miscellaneous Notes Miscellaneous - Rogers Steiner - 03/02/2012 4:55 PM CST Med Management Document Contains Addenda Addendum by ROGERS STEINER RN on 05 March 2012 16:45:40 WEIGHT CONTROL ENGINEER Thanks. Addendum by NICKI HOLT DNP, FNP on 05 March 2012 11:34:50 WEIGHT CONTROL ENGINEER letter dictated. Addendum by ROGERS STEINER RN on 02 March 2012 17:40:04 WEIGHT CONTROL ENGINEER From: ROGERS STEINER RN To: NICKI HOLT DNP, FNP; Sent: 03/02/2012 17:40:04 WEIGHT CONTROL ENGINEER Subject: FW: Med Management Annabelle Caceres, I need help with dosing of Fish Oil, Mucinex, and Calcium. I tried to catch you a few times but you were in rooms. Also, I did inadvertently send prilosec directly instead of proposing so please check that it is okay. Sorry. THis is the message where Marcial is asking for a letter saying she has been recommended to take these so she can receive deduction. Addendum by NICKI HOLT DNP, FNP on 02 March 2012 17:14:09 WEIGHT CONTROL ENGINEER From: NICKI HOLT DNP, FNP To: ROGERS STEINER RN Sent: 03/02/2012 17:14:09 WEIGHT CONTROL ENGINEER Subject: RE:Med Management Approved Order Order: aspirin (aspirin 81 mg oral tablet) 1 tab(s) PO Daily Take with food for heart health. Qty: 30 tab(s) Refills: 0 Substitutions Allowed Route To Pharmacy - [facility] Signed by NICKI HOLT DNP, FNP 03/02/2012 17:14:08 From: ROGERS STEINER RN To: NICKI HOLT DNP, FNP; Sent: 03/02/2012 16:55:59 WEIGHT CONTROL ENGINEER Subject: Med Management Submitted: Order Order: omeprazole (Prilosec OTC 20 mg oral delayed release capsule) See Instructions one tab daily Qty: 30 tab(s) Refills: 0 Substitutions Allowed Route To Pharmacy - [facility] Signed by ROGERS STEINER RN On hold pending signature Order Order: aspirin (aspirin 81 mg oral tablet) 1 tab(s) PO Daily Take with food for heart health. Qty: 30 tab(s) Refills: 0 Substitutions Allowed Route To Pharmacy - [facility] Documented Discontinue Order: aspirin (aspirin 81 mg oral tablet) Signed by ROGERS STEINER RN 03/02/2012 16:50:06 Source: [facility] POWERCHART Document Id: [id number] Electronically signed by Sae [facility] Tank [employer] Milk Receiver [id number] at 07/19/2016 11:11 PM CDT Miscellaneous - Rogers Steiner - 03/02/2012 10:45 AM CST General Message Document Contains Addenda Addendum by NICKI HOLT DNP, FNP on 02 March 2012 12:49:58 WEIGHT CONTROL ENGINEER From: NICKI HOLT DNP, FNP To: ROGERS STEINER RN; Sent: 03/02/2012 12:49:58 WEIGHT CONTROL ENGINEER Subject: RE: General Message Addendum by NICKI HOLT DNP, FNP on 02 March 2012 12:49:52 WEIGHT CONTROL ENGINEER Monica, can you turn these into prescription for me and propose them. I cannot authorize the Garlic asI don't have really any evidenced based research to support the use of this (at least that I know of). She only requires a prescription, that is all that is required for tax deductions. thank you. From: ROGERS STEINER RN To: NICKI HOLT DNP, FNP; Sent: 03/02/2012 10:45:30 WEIGHT CONTROL ENGINEER Subject: General Message Patient would like letter stating the following OTC meds have been discussed and prescribed. She canthen submit letter and have it used as some kind of deduction. Low dose ASA, Prilosec OTC, Garlic, Fish Oil, Mucinex, Calcium. Source: [facility] POWERCHART Document Id: [id number] Electronically signed by Sae [facility] [employer] Milk Receiver [id number] at 07/19/2016 11:11 PM CDT Miscellaneous - Sandra Jiang, R.N. - 02/26/2012 9:10 AM CST Requesting TSH Document Contains Addenda Addendum by SANDRA JIANG RN on 26 February 2012 10:11:31 WEIGHT CONTROL ENGINEER Orders pended. Addendum by NICKI HOLT DNP, FNP on 26 February 2012 09:28:44 WEIGHT CONTROL ENGINEER From: NICKI HOLT DNP, FNP To: SANDRA JIANG RN; Sent: 02/26/2012 09:28:44 WEIGHT CONTROL ENGINEER Subject: RE: Requesting TSH Addendum by NICKI HOLT DNP, FNP on 26 February 2012 09:28:42 WEIGHT CONTROL ENGINEER Yes I am fine with that, thank you. From: SANDRA JIANG RN To: NICKI HOLT DNP, FNP; Sent: 02/26/2012 09:10:11 WEIGHT CONTROL ENGINEER Subject: Requesting TSH Marcial called stating she [...] order if you approve. Thank you. Source: [facility] POWERCHART Document Id: [id number] Electronically signed by Conversion, [facility] [employer] Milk Receiver [id number] at 07/19/2016 11:11 PM CDT Miscellaneous - Conversion, Historical Provider Ser - 01/29/2012 11:41 AM WEIGHT CONTROL ENGINEER Med Management Document Contains Addenda Addendum by JENA BEYER V on 29 January 2012 12:33:38 WEIGHT CONTROL ENGINEER called to [employer]ofields Addendum by NICKI HOLT DNP, FNP on 29 January 2012 12:06:06 WEIGHT CONTROL ENGINEER From: NICKI HOLT DNP, FNP To: JENA BEYER V; Sent: 01/29/2012 12:06:06 WEIGHT CONTROL ENGINEER Subject: RE: Med Management Addendum by NICKI HOLT DNP, FNP on 29 January 2012 12:05:59 WEIGHT CONTROL ENGINEER completed. From: JENA BEYER V To: NICKI HOLT DNP, FNP; JENA BEYER V; Sent: 01/29/2012 11:41:03 WEIGHT CONTROL ENGINEER Subject: Med Management Submitted: Order Order: alprazolam (Xanax 0.5 mg oral tablet) 1 tab(s) PO q8hr Take for anxiety. Qty: 25 tab(s) Refills: 1 Anxiety Print - [id number] Signed by JENA BEYER V 01/29/2012 11:40:18 [facility] shows this was filled 08/20/10 when last written Source: [employer] Document Id: [id number] Miscellaneous - Conversion, Historical Provider Ser - 01/29/2012 11:39 AM WEIGHT CONTROL ENGINEER simvastatin From: JENA BEYER V Sent: 01/29/2012 11:39:15 WEIGHT CONTROL ENGINEER Subject: simvastatin 30 day refill of simvastatin sent to [facility] per protocol. Orders have been pended already. LVM for pt to schedule labs/visit prior to next refill request Source: [employer] Document Id: [id number] documented in this encounter Plan of Treatment Upcoming Encounters Date Type Specialty Care Team Description 01/22/2022 Office Visit Cardiovascular Disease Maritza Currie M.D. [address] [place] [phone] (Wo rk) documented as of this encounter Visit Diagnoses Not on filedocumented in this encounter
--- OUTSIDE RECORDS SUMMARY | 2022-01-21 13:53 | XMS_ITS | Encounter Summary ---
:1945 Author Organization [facility] Address [address] [place] [address] Care Team Providers Name Role Phone Unavailable Primary Care Provider Unavailable Encounter Details Date Type Department Care Team Description 04/29/[address] [facility] Asha Ramon APRN C.N.P., D. N.P. [address] [place], [place] [phone] (Wo rk) Social History [...] mouth daily. Take 0 11/13/2021 with food [employer]. documented as of this encounter Miscellaneous Notes Miscellaneous - Nicki Anthony, Maritza.N.P., C.N.P. - 04/30/2012 9:31 AM CDT Results Notification Document Contains Addenda Addendum by VITALIY VILLEDA LPN on 30 April 2012 09:46:08 CDT Copy sent to patient. From: NICIK ANTHONY DNP, SENIOR PRINCIPAL PROCESS ENGINEER To: VITALIY VILLEDA LPN Sent: 04/30/2012 09:31:51 CDT ! Show up: 04/30/2012 14:31:51 [facility] Subject: Results Notification Actions: Note to Nurse Source: [facility] POWERCHART Document Id: [id number] Electronically signed by Conversion, [facility] [employer] [id number] at 07/16/2016 1:07 PM CDT documented in this encounter Plan of Treatment Upcoming Encounters Date Type Specialty Care Team Description 01/22/2022 Office Visit Cardiovascular Disease Maritza Currie M.D. [address] [place] [phone] (Wo rk) documented as of this encounter Visit Diagnoses Not on filedocumented in this encounter
--- OUTSIDE RECORDS SUMMARY | 2022-01-21 13:53 | XMS_ITS | Encounter Summary ---
:1945 Author Organization [facility] Address [address] [place] [address] Care Team Providers Name Role Phone Unavailable Primary Care Provider Unavailable Encounter Details Date Type Department Care Team Description 08/16/2012 Hospital Encounter HX [facility] Nicki Holt, MAL, C.N.P., D. N.P. [address] [place] [address] (Wo rk) Social History Tobacco [...] Progress Notes Nicki Holt D.N.P., CJairoNJairoP. - 08/16/2012 7:21 AM CDT [id number] CHIEF COMPLAINT/REASON FOR VISIT Dysuria. HISTORY OF [...] numbness or tingling and has tried some healthcare administrative assistant for this with no symptom improvement. CURRENT [...] on scheduling an MRI with contrast through [facility] in [place]. We will contact her regarding these results, [...] Patient/child/caregiver expressed understanding of the content. Corrine LucasN.P./F.N.P/felix Electronically Signed By: NICKI HOLT DNP, FNP On: 08/17/2012 08:18 PM Source: [facility] MHSDOLBEYNONRADSYS Document Id: [id number] documented in this encounter Nursing Notes Jie Thomason L.P.NJairo - 08/16/2012 1:07 PM CDT MRI Per Provider Nicki Holt, MRI with contrast order was faxed to [place] [facility]. Fax # . Electronically Signed By: JIE THOMASON LPN On: 08/16/2012 01:09 PM Source: [facility] POWERCHART Document Id: [id number] documented in this encounter Miscellaneous Notes Miscellaneous - Nicki Holt D.N.P., CJairoNJairoP. - 08/16/2012 9:15 AM CDT Ambulatory Patient Summary [address] [address] Visit Information Name: ARCHIE BAZAN [facility] Number: [id number] Current Date: 08/16/2012 09:15:53 [...] [facility] FOLLOW UP [facility] Country Manager 08/26/2012 08:45 [facility] FOLLOW UP [facility] 09/02/2012 08:45 [facility] FOLLOW UP [facility] Country Manager 09/09/2012 08:45 [facility] FOLLOW UP [facility] Country [facility] 09/16/2012 08:45 [facility] FOLLOW UP [facility] Country [facility] Your Goals/Additional instructions: Source: [facility] POWERCHART Document Id: [id number] Miscellaneous - Nicki Holt, Maritza.N.P., C.N.P. - 08/16/2012 9:15 AM CDT Ambulatory Depart Summary [address] [address] Visit Information Name: ARCHIE BAZAN [facility] Number: [id number] Visit Date: 08/16/2012 09:15:52 Attending Provider: NICKI HOLT DNP, MUSEUM INFORMATICS SPECIALIST Primary Care Provider: NICKI HOLT DNP, MUSEUM INFORMATICS SPECIALIST ARCHIE BAZAN has been given the following [...] your provider for clarification. Additional Information: Source: [facility] POWERCHART Document Id: [id number] Miscellaneous - Vitaliy Darnell L.P.N. - 08/16/2012 7:28 AM CDT Adult Assistant Chief Nursing Officer Intake/History Adult Assistant Chief Nursing Officer Intake/History Entered On: 08/16/2012 7:36 CDT Performed On: 08/16/2012 7:28 CDT by VITALIY DARNELL NEUROLOGY NURSE Intake Chief Complaint : Right shoulder slipped [...] Index : 31.6 kg/m2 VITALIY DARNELL [facility] - 08/16/2012 7:28 CDT General Info Information Given By : Patient Languages : Divehi VITALIY DARNELL [facility] - 08/16/2012 7:28 CDT Subjective Pain Symptoms : No VITALIY DARNELL LPN - 08/16/2012 7:28 CDT Dependent Habits Tobacco Use/Currently Using : No Tobacco Use/Last 12 months : No Tobacco Use/Advised to Quit : No Exposure to Tobacco Smoke : Care provider denies smoking in home Smoking Status : Never smoker VITALIY DARNELL [facility] - 08/16/2012 7:28 CDT Tobacco Use Grid [...] DARNELL LPN - 08/16/2012 7:28 CDT Source: [facility] [employer] Document Id: [id number] CDT!41 documented in this encounter Plan of Treatment Upcoming Encounters Date Type Specialty Care Team Description 01/22/2022 Office Visit Cardiovascular Disease Maritza Currie M.D. [address] [place] [phone] (Wo rk) documented as of [...] Urine Microscopic (08/16/2012 8:20 AM CDT) [facility] Method Time Signature HXUr WBC 5-10 [...] Holt APRN, C.N.P., D.N.P. LAB URINE ORDE GuaranteachCHRISTOPHER Performing Organization Address [facility] Code Phon e Number POWERCHART Urinalysis, Routine (08/16/2012 8:20 AM CDT) [facility] Method Time Signature HXUr Color Yellow Yellow POWERCHART Appearance Clear Clear POWERCHART Glucose Negative Negative POWERCHART HXBILIRUBIN Negative Negative POWERCHART Ketones, QL(U) Negative Negative POWERCHART Specific 1.015 1.000 - POWERCHART [place], POCT, U 1.030 pH, POCT, Urine 5.0 [...] Nicki Holt APRN, C.N.P., D.N.P. LAB URINE ORDNORTH [facility]ITAL[facility]RISTOP[facility] Performing Organization Address [facility] Phon e Number POWERCHART documented in this encounter Visit Diagnoses Not on filedocumented in this encounter
--- OUTSIDE RECORDS SUMMARY | 2022-01-21 13:53 | XMS_ITS | Encounter Summary ---
:1945 Author Organization [facility] Address [address] [place] [address] Care Team Providers Name Role Phone Unavailable Primary Care Provider Unavailable Encounter Details Date Type Department Care Team Description 04/22/2012 Hospital Encounter [facility]X [facility] Nicki Anthony, MAL, C.N.P., D. N.P. [address] [place] [address] (Wo rk) Social History Tobacco [...] mouth daily. Take 0 11/13/2021 with food [employer]. documented as of this encounter Progress Notes Conversion, Historical Provider Ser - 04/22/2012 3:30 PM CST [id number] HEALTH & WELLNESS COACHING REFERRING PHYSICIAN: Nicki Anthony, D.N.P./F.N.P. The patient was 100% successful for both of her goals, goal #1 of making healthy meal options and substitutions. Also 100% successful in achieving her walking and moving every day and also three times a week on the treadmill in the [employer] shop. Today we discussed some other obstacles [...] for later. She also tried out the Cypriot yogurt and also the Yoplait Cypriot yogurt. She also experimented with avocado with [...] in a week's time. Annie Jeter DOCID: [id number] cc: Nicki Anthony D.N.P./Elmer Electronically Signed By: SE ABEBA GALAN, INBOX [email or web address] On: 07/05/2014 01:48 PM Source: [facility] PRESTONSDOLBEYNCELESTINARADSYS Document Id: [id number] Addendum by SE ABEBA GALAN, INBOX [email or web address] on 05 Jul 2014 13:49 CDT [facility] administratively closed. Provider on longer with facility. Report filed unsigned. Modified by and Electronically Signed by: SE ABEBA GALAN, INBOX [email or web address] On: 07/05/2014 01:49 PM Source: [facility] POWERCHART Document Id: [id number] documented in this encounter Plan of Treatment Upcoming Encounters Date Type Specialty Care Team Description 01/22/2022 Office Visit Cardiovascular Disease Maritza Currie M.D. [address] [place] [phone] (Wo rk) documented as of this encounter Visit Diagnoses Not on filedocumented in this encounter
--- OUTSIDE RECORDS SUMMARY | 2022-01-21 13:53 | XMS_ITS | Encounter Summary ---
:1945 Author Organization [facility] Address [address] [place] [address] Care Team Providers Name Role Phone Unavailable Primary Care Provider Unavailable Encounter Details Date Type Department Care Team Description 04/22/2012 Hospital Encounter [facility]X [facility] Nicki Holt, Deana RESENDEZ.N.P., D.N.P. [address] [place], [place] [phone] (Wo rk) Social History [...] mouth daily. Take 0 11/13/2021 with food [employer]. documented as of this encounter Miscellaneous Notes Miscellaneous - Nicki Holt, Maritza.N.P., C.N.P. - 04/26/2012 12:38 PM CDT Results Notification Document Contains Addenda Addendum by VITALIY VILLEDA LPN on 26 April 2012 13:47:07 CDT Copy of results sent to patient. From: NICKI HOLT DNP, CALENDER TENDER To: VITALIY VILLEDA LPN Sent: 04/26/2012 12:38:51 CDT ! Show up: 04/26/2012 17:38:51 [facility] Subject: Results Notification Actions: Note to Nurse Source: [facility] POWERCHART Document Id: [id number] Electronically signed by Conversion, [facility] Data Capture Clerk [id number] at 07/16/2016 1:07 PM CDT documented in this encounter Plan of Treatment Upcoming Encounters Date Type Specialty Care Team Description 01/22/2022 Office Visit Cardiovascular Disease Maritza Currie M.D. [address] [place] [phone] (Wo rk) documented as of this encounter Procedures Procedure Name Priority Date/Time Associated Comments Diagnosis THYROID-STIMULATING Routine 04/22/2012 3:28 PM Re sults for this HORMONE-SENSITIVE [facility]GRATION procedure are in (S-TSH) the results section. CREATININE WITH Routine 04/22/2012 3:28 PM Result s for this EGFR, S/P VP INTEGRATION procedure are i n the results section. documented in this encounter Results (ABNORMAL) Creatinine with eGFR (04/22/2012 3:28 PM [employer] [facility]) athologist Signature Creatinine 0.94 0.60 - 1.30 POWERCHART MGDL HXeGFR (MDRD) 59 (L) >=60 POWERCHART [id number] Comment: A GFR of <60 mL/min is indicative of chr onic kidney disease. (MDRD calculation valid on patients 18 - 70 years.) eGFR Black/ >60 >=60 [id number] POWERCHART Specimen (Source) Anatomical Collection Method Collection Time Re ceived Time Location / / Volume Laterality Blood 04/22/2012 3:28 PM [facility] Nicki Holt APRN, C.N.P., D.N.P. LAB BLOOD ADD- ON Performing Organization Address City/State/ZIP Code Phon e Number POWERCHART Thyroid-Stimulating Hormone-Sensitive (s-TSH) (04/22/2012 3:28 PM [facility]) P athologist Signature TSH 4.87 0.30 - 5.00 POWERCHART (Thyrotropin) MCIUML Specimen (Source) Anatomical Collection Method Collection Time Re ceived Time Location / / Volume Laterality Blood 04/22/2012 3:28 PM [facility] Nicki Holt APRN, C.N.P., D.N.P. LAB BLOOD ADD- ON Performing Organization Address City/State/ZIP Code Phon e Number POWERCHART documented in this encounter Visit Diagnoses Not on filedocumented in this encounter
--- OUTSIDE RECORDS SUMMARY | 2022-01-21 13:53 | XMS_ITS | Encounter Summary ---
:1945 Author Organization [facility] Address [address] [place] [address] Care Team Providers Name Role Phone Unavailable Primary Care Provider Unavailable Encounter Details Date Type Department Care Team Description 08/17/2012 Hospital Encounter [facility]X [facility] X[facility] Provider, Histori joao Social History [...] Take 0 11/13/2021 with food for heart [employer]. documented as of this encounter Plan of Treatment Upcoming Encounters Date Type Specialty Care Team Description 01/22/2022 Office Visit Cardiovascular Disease Maritza Currie M.D. [address] [place], [place] [phone] (Wo rk) documented as of this encounter Visit Diagnoses Not on filedocumented in this encounter
--- OUTSIDE RECORDS SUMMARY | 2022-01-21 13:53 | XMS_ITS | Encounter Summary ---
:1945 Author Organization [facility] Address [address] [place] [address] Care Team Providers Name Role Phone Unavailable Primary Care Provider Unavailable Encounter Details Date Type Department Care Team Description 12/04/2011 Hospital Encounter HX [facility] Nicki Anthony, MAL, C.N.P., D. N.P. [address] [place] [address] (Wo rk) Social History Tobacco [...] Cardiovascular Disease Maritza Currie M.D. [address] [place], [place] [phone] (Wo rk) documented as of this encounter Visit Diagnoses Not on filedocumented in this encounter
--- OUTSIDE RECORDS SUMMARY | 2022-01-21 13:53 | XMS_ITS | Encounter Summary ---
:1945 Author Organization [facility] Address [address] [place] [address] Care Team Providers Name Role Phone Unavailable Primary Care Provider Unavailable Encounter Details Date Type Department Care Team Description 07/29/2012 Hospital Encounter HX [facility] Nicki Anthony, MAL, C.N.P., D. N.P. [address] [place] [address] (Wo rk) Social History Tobacco [...] daily. Take 0 11/13/2021 with food for [employer]. documented as of this encounter Progress Notes Conversion, Historical Provider Ser - 07/29/2012 8:56 AM CDT [id number] HEALTH AND WELLNESS COACHING The patient was seen at [facility] in [place] on 07/29/2012 for follow-up wellness coaching visit [...] to move forward in her goals. Annie Pérez/[facility] Electronically Signed By: ANNIE PÉREZ On: 08/23/2012 10:34 AM Source: [facility] MHSDOLBEYNONRADSYS Document Id: [id number] documented in this encounter Plan of Treatment Upcoming Encounters Date Type Specialty Care Team Description 01/22/2022 Office Visit Cardiovascular Disease Maritza Currie M.D. [address] [place] [phone] (Wo rk) documented as of this encounter Visit Diagnoses Not on filedocumented in this encounter
--- OUTSIDE RECORDS SUMMARY | 2022-01-21 13:54 | XMS_ITS | Encounter Summary ---
:1945 Author Organization [facility] Address [address] [place] [address] Care Team Providers Name Role Phone Unavailable Primary Care Provider Unavailable Encounter Details Date Type Department Care Team Description 05/27/2011 Hospital Encounter HX NO MAPPING Dandy Mccarthy P.T. [address] [place], [place] [phone] Social History Tobacco Use [...] Mccarthy P.T. - 05/27/2011 2:30 PM CDT [id number] REHAB SNAPSHOT Referring Provider: Tona Ledesma M.D. 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 This plan of care has been discussed with the patient/youth care professional and the patient/youth care professional is in agreement. Frequency / Duration: Patient [...] Total Time-Based Code Only Minutes: 23 minutes. PARTS SALES COUNTERPERSON PRESENT: NA MULTIDISCIPLINARY PATIENT / FAMILY EDUCATION [...] Demonstrated ability, Verbalized recall / understanding [facility] Document Id: [id number] Electronically signed by Conversion, [facility] Family And Consumer Sciences Professor [id number] at 07/19/2016 11:54 AM CDT documented in this encounter Plan of Treatment Upcoming Encounters Date Type Specialty Care Team Description 01/22/2022 Office Visit Cardiovascular Disease Maritza Currie M.D. [address] [place] [phone] (Wo rk) documented as of this encounter Visit Diagnoses Not on filedocumented in this encounter
--- OUTSIDE RECORDS SUMMARY | 2022-01-21 13:54 | XMS_ITS | Encounter Summary ---
:1945 Author Organization [facility] Address [address] [place] [id number] Care Team Providers Name Role Phone Unavailable Primary Care Provider Unavailable Encounter Details Date Type Department Care Team Description 04/26/2011 Hospital Encounter HX [facility] Julian Culver M.D. [address] [place] [address] [phone] (Wo rk) Social History Tobacco Use Types [...] Comments Blood Pressure 167/78 04/26/2011 7:31 PM STRAIGHTENING MACHINE FEEDER Pulse 74 04/26/2011 7:31 PM STRAIGHTENING MACHINE FEEDER Temperature - - Respiratory Rate 16 04/26/2011 7:31 PM STRAIGHTENING MACHINE FEEDER Oxygen Saturation - - Inhaled Oxygen Concentration - - Weight 86 kg (189 lb 9.5 oz) 04/26/2011 7:31 PM STRAIGHTENING MACHINE FEEDER Height - - Body Mass Index - - documented in this encounter Discharge Summaries David Fisher R.N. - 04/26/2011 11:07 PM CST ED Discharge Instructions [facility] [address] [place] [address] Name: MARCIAL BAZAN Date of : 1945 12:00 AM Visit Date: 04/26/2011 7:11 PM Address: [address] [place] [phone] Primary Care Provider: VICKEY HOLT DNP, MANAGER OF ADMINISTRATION IMPORTANT: [facility] in [place] would like to thank you for allowing us to assist you with your healthcare needs. The following includes patient education materials and informationregarding your injury/illness. Chief Complaint: PAIN ON LEFT SIDE Follow-Up Instructions: With: Address: When: USE A STRAINER TO CATCH THE STONE AND SAVE FOR STONE ANALYSIS Within As Needed Comments: With: Address: When: VICKEY HOLT [address] [place] [address] Business (1) In 7 days 05/03/2011 Comments: Patient Education Materials: [id number] KIDNEY STONE (w/ colic) The sharp cramping [...] 8 hours and increasing bladder pressure ?? [phone] [employer], [address] [place] [address]. All rights reserved. This information is not [...] arrange a ride home with a responsible constitution party. I, MARCIAL BAZAN , or responsible constitution party have received this information and my questions havebeen answered. I have discussed any challenges I see with this plan with the nurse or physician. Patient Signature or Responsible Green Party/Relationship Date/Time Provider Signature Date/Time Medication Reconciliation: Reconciliation [...] arrange a ride home with a responsible constitution party. BENI Matta LURENE MURIEL , or responsible constitution party have received this information and my questions havebeen answered. I have discussed any challenges I see with this plan with the nurse or physician. Patient Signature or Responsible Green Party/Relationship Date/Time Provider Signature Date/Time This document has images extracted. Please consider using [employer] for all your patient education needs. Source: [facility] POWERCHART Document Id: [id number] IGHTENING MACHINE FEEDER David Fisher R.N. - 04/26/2011 11:07 PM CST ED Depart Summary [facility] Emergency Department Clinical Discharge Summary PERSON INFORMATION Name MARCIAL BAZAN Age 65 Years 1945 12:00 AM Sex Female Language Wallisian PCP VICKEY HOLT DNP, MANAGER OF ADMINISTRATION Marital Status Visit Id Visit Reason PAIN ON LEFT SIDE Specialty Enc Type Emergency Med Service Emergency Medicine Referred by Track Group [facility] ED Discharge 04/26/2011 11:07 PM Tracking Id [id number] Checkout 04/26/2011 11:07 PM Checkin 04/26/2011 7:11 PM Acuity 4 -Less Urgent Dispo Type * Discharged to Home or Self Care Arrival 04/26/2011 7:11 PM Reg Status LOS 000 03:56 Address: [address] [place] [phone] Comment: PROVIDER INFORMATION Provider Role Provider Contact [...] Comments: With: Address: When: VICKEY HOLT [address] [place] [address] Business (1) In 7 days 05/03/2011 Comments: Source: [facility] POWERCHART Document Id: [id number] IGHTENING MACHINE FEEDER documented in this encounter Nursing Notes David Fisher, R.N. - 04/26/2011 10:47 PM CST ED Pain Assessment ED Pain Assessment Entered On: 04/26/2011 22:48 STRAIGHTENING MACHINE FEEDER Performed On: 04/26/2011 22:47 STRAIGHTENING MACHINE FEEDER by DAVID FISHER RN Pain Assessment Pain Symptoms : Yes Pain Medication Requested : Yes DAVID FISHER RN - 04/26/2011 22:47 STRAIGHTENING MACHINE FEEDER Source: [facility] Flavours Document Id: [id number] STRAIGHTENING MACHINE FEEDER!4 IGHTENING MACHINE FEEDER David Fisher R.N. - 04/26/2011 7:31 PM CST ED Primary Assessment ED Primary Assessment Entered On: 04/26/2011 19:41 STRAIGHTENING MACHINE FEEDER Performed On: 04/26/2011 19:31 STRAIGHTENING MACHINE FEEDER by DAVID FISHER RN Reason For Visit Problems(Active) Anxiety disorder NOS Name of Problem: Anxiety disorder NOS ; Onset Date: 1987 ; Recorder: PETRA RUSSELL LPN; Confirmation: Confirmed ; Classification: Nursing ; Code: 1231 ; Contributor System: AltspaceVRChart ; Last Updated: 03/19/2010 16:21 STRAIGHTENING MACHINE FEEDER ; Life Cycle Date: 03/19/2010 ; Life Cycle Status: Active ; Responsible Provider: PETRA RUSSELL LPN; Vocabulary: ICD-9-CM Hyperlipidemia/Dyslipidemia Name of Problem: Hyperlipidemia/Dyslipidemia ; Onset Date: 2004 ; Recorder: PETRA RUSSELL LPN; Confirmation: Confirmed ; Classification: Nursing ; Code: 1231 ; Contributor System: PowerChart ; Last Updated: 03/19/2010 16:15 STRAIGHTENING MACHINE FEEDER ; Life Cycle Date: 03/19/2010 ; Life Cycle Status: Active ; Responsible Provider: PETRA RUSSELL LPN; Vocabulary: ICD-9-CM NIDDM [non-insulin dependent diabetes mellitus] Name of Problem: NIDDM [non- insulin dependent diabetes mellitus] ; Onset Date: 2007 ; Recorder: PETRA RUSSELL LPN; Confirmation: Confirmed ; Classification: Nursing ; Code: 1231 ; Contributor System: PowerChart ; Last Updated: 03/19/2010 16:14 STRAIGHTENING MACHINE FEEDER ;Life Cycle Date: 03/19/2010 ; Life Cycle Status: Active ; Responsible Provider: PETRA RUSSELL LPN; Vocabulary: ICD-9-CM Osteoarthritis Name of Problem: Osteoarthritis ; Recorder: PETRA RUSSELL LPN; Confirmation: Confirmed ; Classification: Nursing ; Code: 1231 ; Contributor System: PowerChart ; Last Updated: 03/19/2010 16:17 STRAIGHTENING MACHINE FEEDER ; Life Cycle Date: 03/19/2010 ; Life Cycle Status: Active ; Responsible Provider: PETRA RUSSELL LPN; Vocabulary: ICD-9-CM ; Comments: 01/07/2011 9:57 - VICKEY HOLT DNP, MANAGER OF ADMINISTRATION date of onset unknown Osteoporosis NOS Name of Problem: Osteoporosis NOS ; Recorder: PETRA RUSSELL LPN; Confirmation:Confirmed ; Classification: Nursing ; Code: 1231 ; Contributor System: PowerChart ; Last Updated: 03/19/2010 16:17 STRAIGHTENING MACHINE FEEDER ; Life Cycle Date: 03/19/2010 ; Life Cycle Status: Active ; Responsible Provider: PETRA RUSSELL LPN; Vocabulary: ICD-9-CM ; Comments: 01/07/2011 10:08 - VICKEY HOLT DNP, MANAGER OF ADMINISTRATION date of onset unknown Rosacea Name of Problem: Rosacea ; Onset Date: 2006 ; Recorder: PETRA RUSSELL LPN; Confirmation: Confirmed ; Classification: Nursing ; Code: 1231 ; Contributor System: PowerChart ; Last Updated: 03/19/2010 16:18 STRAIGHTENING MACHINE FEEDER ; Life Cycle Date: 03/19/2010 ; Life Cycle Status: Active ; Responsible Provider:PETRA RUSSELL LPN; Vocabulary: ICD-9-CM TIA [Transient ischemic attack] Name of Problem: TIA [Transient ischemic attack] ; Onset Date: 2007 ; Recorder: PETRA RUSSELL LPN; Confirmation: Confirmed ; Classification: Nursing ; Code: 1231 ; Contributor System: AltspaceVRChart ; Last Updated: 03/19/2010 16:19 STRAIGHTENING MACHINE FEEDER ; Life Cycle Date: 03/19/2010 ; Life Cycle Status: Active ; Responsible Provider: PETRA RUSSELL LPN; Vocabulary: ICD-9-CM Diagnoses(Active) Urination painful Date: 04/26/2011 ; Diagnosis Type: Reason For Visit ; Confirmation: Complaint of ;Clinical Dx: Urination painful ; Classification: Medical ; Clinical Service: Emergency medicine ; Code: PNED ; Probability: 0 ; Diagnosis Code: [id number] Triage Chief Complaint Description : 65 yr bruno presents with possible UTI, admits to left flank reveles that radiates to the abdomen . Pt states she has had perineal pressure for 2 weeks or so . Information Given By : Patient Accompanied By : Spouse Mode of Arrival ED : Private vehicle Track : Medical Languages : Wallisian Vital Signs Assessed : Yes DAVID FISHER RN - 04/26/2011 19:31 STRAIGHTENING MACHINE FEEDER Vital Signs Temperature Core : 36.4C(Converted to: [...] 189.200lb DAVID FISHER RN - 04/26/2011 19:31 STRAIGHTENING MACHINE FEEDER Pain Assessment Pain Symptoms : Yes DAVID FISHER RN - 04/26/2011 19:31 STRAIGHTENING MACHINE FEEDER ED Physician Notification Time ED Physician Notification Time : 04/26/2011 19:36 STRAIGHTENING MACHINE FEEDER DAVID FISHER RN - 04/26/2011 19:31 STRAIGHTENING MACHINE FEEDER RASHEED RASHEED Level 1 : No RASHEED Level 2 : No RASHEED Level 3 : One DAVID FISHER RN - 04/26/2011 19:31 STRAIGHTENING MACHINE FEEDER DCP GENERIC CODE Tracking Acuity : 4 -Less Urgent Tracking Group : [facility] ED DAVID FISHER RN - 04/26/2011 19:31 STRAIGHTENING MACHINE FEEDER Allergy Latex Reaction : No Latex Hives/Itch : No Latex Congestion/Eye Irr/Breathing : No Latex Symptom Progression : No Latex Previous Test : No DAVID FISHER RN - 04/26/2011 19:31 STRAIGHTENING MACHINE FEEDER Allergies (Active) azithromycin Estimated Onset Date: Unspecified ; Created By: PETRA RUSSELL LPN; Reaction Status: Active ; Category: Drug ; Substance: azithromycin ; Type: Allergy ; Updated By: PETRA RUSSELL LPN; Reviewed Date: 04/17/2011 18:05 STRAIGHTENING MACHINE FEEDER Benicar Estimated Onset Date: Unspecified ; Created By: PETRA RUSSELL LPN; Reaction Status: Active ; Category: Drug ; Substance: Benicar ; Type: Allergy ; Updated By: PETRA RUSSELL LPN; Reviewed Date: 04/17/2011 18:05 STRAIGHTENING MACHINE FEEDER ID Screen TB Symptoms Grid Bloody Sputum : No Fatigue : No Fever : No Loss of Appetite : No Night Sweats : No Persistent Cough Greater Than 3 Weeks : No Weight Loss : No DAVID FISHER RN - 04/26/2011 19:31 STRAIGHTENING MACHINE FEEDER Alcohol and Drug Use : No Employee [...] No DAVID FISHER RN - 04/26/2011 19:31 STRAIGHTENING MACHINE FEEDER Syndrome Surveillance Symptoms Grid Headache : No Illness With Generalized Rash : No Muscle Pain : No New or Worsening Cough : No Shortness of Breath : No Recent Exposure to Communicable Disease : No DAVID FISHER RN - 04/26/2011 19:31 STRAIGHTENING MACHINE FEEDER Travel Within Last 14 Days : No DAVID FISHER RN - 04/26/2011 19:31 STRAIGHTENING MACHINE FEEDER Immunizations Pneumovac : Last 5 years Influenza : This year DAVID FISHER RN - 04/26/2011 19:31 STRAIGHTENING MACHINE FEEDER Respiratory Airway : Patent Respirations : Unlabored Respiratory Pattern : Regular DAVID FISHER RN - 04/26/2011 19:31 STRAIGHTENING MACHINE FEEDER Cardiovascular Heart Rhythm : Regular Skin Color : Normal for ethnicity Skin Description : Dry Skin Temperature : Warm DAVID FISHER RN - 04/26/2011 19:31 STRAIGHTENING MACHINE FEEDER Neurological Level of Consciousness : Alert Orientation : Oriented x 3 Characteristics of Speech : Appropriate for age DAVID FISHER RN - 04/26/2011 19:31 STRAIGHTENING MACHINE FEEDER ED Psychosocial Affect/Behavior : Calm, Cooperative, Appropriate Domestic Abuse Concerns : None DAVID FISHER RN - 04/26/2011 19:31 STRAIGHTENING MACHINE FEEDER Domestic Violence Screen Partner Emotional/Physical Abuse Hx : No DAVID FISHER RN - 04/26/2011 19:31 STRAIGHTENING MACHINE FEEDER Gastrointestinal Nutrition ED : Adequate DAVID FISHER RN - 04/26/2011 19:31 STRAIGHTENING MACHINE FEEDER Musculoskeletal Fall Prevention Education Provided : DAVID AVILA RN - 04/26/2011 19:31 STRAIGHTENING MACHINE FEEDER Social Habits Tobacco Use/Currently Using : No Tobacco Use/Advised to Quit : No Exposure to Tobacco Smoke : Care provider denies smoking in home Smoking Status : Never smoker DAVID FISHER RN - 04/26/2011 19:31 STRAIGHTENING MACHINE FEEDER Alcohol Use Grid Alcohol Use : No DAVID FISHER RN - 04/26/2011 19:31 STRAIGHTENING MACHINE FEEDER Recreational Drug Use Grid Drug Use : None DAVID FISHER RN - 04/26/2011 19:31 STRAIGHTENING MACHINE FEEDER Source: [facility] Flavours Document Id: [id number] STRAIGHTENING MACHINE FEEDER!102 IGHTENING MACHINE FEEDER documented in this encounter ED Notes David Fisher R.N. - 04/26/2011 11:00 PM CST ED Treatments and Procedures ED Treatments and Procedures Entered On: 04/26/2011 23:33 STRAIGHTENING MACHINE FEEDER Performed On: 04/26/2011 23:00 STRAIGHTENING MACHINE FEEDER by DAVID FISHER RN Peripheral IV Peripheral IV Assess/Intervention Grid Peripheral IV #1 IV Activity : Discontinue Number of Attempts : 1 Date of Insertion : 04/26/2011 STRAIGHTENING MACHINE FEEDER IV Site : Hand Laterality : Left Catheter Size : 18 Catheter Type : Protective DAVID FISHER RN - 04/26/2011 23:32 STRAIGHTENING MACHINE FEEDER [facility] Document Id: [id number] STRAIGHTENING MACHINE FEEDER!11 IGHTENING MACHINE FEEDER David Fisher R.N. - 04/26/2011 10:47 PM CST ED Disposition Summary ED Disposition Summary Entered On: 04/26/2011 22:47 STRAIGHTENING MACHINE FEEDER Performed On: 04/26/2011 22:47 STRAIGHTENING MACHINE FEEDER by DAVID FISHER RN ED Disposition Summary Accompanied By : Spouse Mode of Discharge : Ambulatory Transportation : Private vehicle Printed Discharge Instructions Given to Patient : Yes DAVID FISHER RN - 04/26/2011 22:47 STRAIGHTENING MACHINE FEEDER Source: [facility] Flavours Document Id: [id number] STRAIGHTENING MACHINE FEEDER!6 IGHTENING MACHINE FEEDER David Fisher R.N. - 04/26/2011 9:25 PM CST ED Treatments and Procedures ED Treatments and Procedures Entered On: 04/26/2011 23:32 STRAIGHTENING MACHINE FEEDER Performed On: 04/26/2011 21:25 STRAIGHTENING MACHINE FEEDER by DAVID FISHER RN Peripheral IV Peripheral IV Assess/Intervention Grid Peripheral IV #1 IV Activity : Start Number of Attempts : 1 Date of Insertion : 04/26/2011 STRAIGHTENING MACHINE FEEDER IV Site : Hand Laterality : Left Catheter Size : 18 Catheter Type : Protective Site Condition : No complications Drainage Description : None DAVID FISHER RN - 04/26/2011 23:31 STRAIGHTENING MACHINE FEEDER Source: [facility] POWERCHART Document Id: [id number] STRAIGHTENING MACHINE FEEDER!13 IGHTENING MACHINE FEEDER Jerman Arias M.D. - 04/26/2011 7:51 PM CST Urination painful Patient: MARCIAL BAZAN Age: 65 years Sex: Female : 1945 Author: JERMAN ARIAS MD Attachments: None Associated Diagnosis: Abdominal pain Basic Information Additional information:: Chief Complaint from Nursing Triage Note : Chief Complaint Description. 04/26/2011 19:31 STRAIGHTENING MACHINE FEEDER Chief Complaint Description 65 yr bruno presents [...] or recorded. Surgical history: Surgical history. Colonoscopy ([id number]) in 2008 at 63 Years. Comments: 09/18/2010 09:23 - JOHN CONCEPCION LPN WNL Biopsy of breast ([id number]) in 1986 at 40 Years. Comments: 09/24/2010 11:37 - VICKEY HOLT DNP, MANAGER OF ADMINISTRATION date unknown Appendectomy ([id number]) in 1959 at 14 Years. History of repair of umbilical hernia ([id number]). Comments: 03/19/2010 16:22 - PETRA RUSSELL LPN Times two 1997, 2000 section ([id number]). Comments: 03/19/2010 16:23 - PETRA RUSSELL LPN [...] Examination Vital signs: Vital Signs, 04/26/2011 19:31 STRAIGHTENING MACHINE FEEDER Temperature Core 36.4 C LOW Peripheral Pulse Rate 74 /min Respiratory Rate 16 /min SpO2 100 % Systolic Blood Pressure 167 mmHg >HHI Diastolic Blood Pressure 78 mmHg Mean Arterial Pressure 108 mmHg Measurements, 04/26/2011 19:31 STRAIGHTENING MACHINE FEEDER Actual Weight 86 kg Oxygen saturation Oxygen Therapy & Oxygenation Information. 04/26/2011 19:31 STRAIGHTENING MACHINE FEEDER Oxygen Therapy Room air Oxygen Saturation Monitoring [...] if Indicated (Order Processing): Stat, 04/26/2011 19:52 STRAIGHTENING MACHINE FEEDER, Once, Urine, Clean Void UrineLaunch Orders, Laboratory: Amylase Level (Order Processing): Stat, 04/26/2011 20:03 STRAIGHTENING MACHINE FEEDER, Once, Blood Comprehensive Metabolic Panel (Order Processing): Stat, 04/26/2011 20:03 STRAIGHTENING MACHINE FEEDER, Once, Blood CBC (includes Auto Differential) (Order Processing): Stat, 04/26/2011 20:03 STRAIGHTENING MACHINE FEEDER, Once, BloodLaunch Orders, Radiology: XR Abdomen 2 Views (Order Processing): 04/26/2011 20:03 STRAIGHTENING MACHINE FEEDER, PAIN LEFT FLANK AND PELVIC PRESSURE, Stat, Patient Bed, OnceLaunch Orders, Radiology: CT Abdomen/Pelvis w/ contrast (Order Processing): 04/26/2011 20:51 STRAIGHTENING MACHINE FEEDER, ABDOMINAL AND PELVIC PAIN RULE OUT ACUETE DIVERTICULITIS, Stat, Patient Bed, OnceLaunch Orders. Pharmacy: ketorolac (Order Processing): 30 mg, IV Push, Once Results review:Lab results : Lab View. 04/26/2011 20:00 STRAIGHTENING MACHINE FEEDER UUA Source. 04/26/2011 20:15 STRAIGHTENING MACHINE FEEDER Hgb 11.0 g/dL LOW Hct 32.9 % LOW WBC 11.3 x10(9)/L HI RBC 3.67 x10(9)/L LOW MCV 90 fL RDW 13.5 % Platelet 207 x10(9)/L Neutro % 75.3 % Lymph % 16.1 % LOW Bullitt % 6.1 % Eos % 2.1 % Baso % 0.4 % Neutro Absolute 8.50 10(9)/L HI Lymph Absolute 1.82 x10(9)/L [place] Absolute 0.69 x10(9)/L Eos Absolute 0.24 x10(9)/L [...] Hgb A1c 7.49 % HI 04/26/2011 20:00 STRAIGHTENING MACHINE FEEDER UA Color Yellow UA Spec Grav >=1.030 [...] from flowsheet : Vital Signs, 04/26/2011 19:31 STRAIGHTENING MACHINE FEEDER Temperature Core 36.4 C LOW Peripheral Pulse [...] PM This document has images extracted. Source: [facility] POWERCHART Document Id: [id number]} IGHTENING MACHINE FEEDER documented in this encounter Miscellaneous Notes Miscellaneous - David Fisher RJairoN. - 04/26/2011 10:48 PM CST Valuables/Belongings Valuables/Belongings Entered On: 04/26/2011 22:48 STRAIGHTENING MACHINE FEEDER Performed On: 04/26/2011 22:48 STRAIGHTENING MACHINE FEEDER by DAVID FISHER RN Valuables/Belongings Home Medication Disposition : None brought in with patient DAVID FISHER RN - 04/26/2011 22:48 STRAIGHTENING MACHINE FEEDER Source: [facility] Flavours Document Id: [id number] STRAIGHTENING MACHINE FEEDER!3 IGHTENING MACHINE FEEDER Miscellaneous - David Fisher R.N. - 04/26/2011 7:11 PM CST Facility Charge Ticket Facility Charge Ticket Entered On: 04/26/2011 22:49 STRAIGHTENING MACHINE FEEDER Performed On: 04/26/2011 19:11 STRAIGHTENING MACHINE FEEDER by DAVID FISHER RN Facility Charge TVL Level for Facility Charge Ticket : Level 4 [place] Total Points with Diagnosis Control : 11 [place] Visit Level : 06463 Level 4 ANIRUDH MOREL - 05/12/2011 17:29 CDT Mode of Arrival ED : Private vehicle [place] Mode of Arrival Interpreted : Standard [place] Process Management : None [facility] Order Management : CT/MRI/Ultrasound, Xray - plain films, Lab tests 30 Minutes Critical Care : No [place] Nursing Assessment : Triage and 1-2 nursing assessments [facility] Disposition : Discharge DAVID FISHER RN - 04/26/2011 22:49 STRAIGHTENING MACHINE FEEDER Chief Complaint 8.50.02 Reason For Visit Category : Genitourinary ED Chief Complaint Genitourinary 8.5 : Flank pain TVL Calc : 12 TVL for Facility Charge Ticket Dx : Level 4 DAVID FISHER RN - 04/26/2011 22:49 STRAIGHTENING MACHINE FEEDER Source: [facility] VisipriseCHART Document Id: [id number] CDT!5 documented in this encounter Plan of Treatment Upcoming Encounters Date Type Specialty Care Team Description 01/22/2022 Office Visit Cardiovascular Disease Maritza Currie M.D. [address] [place] [address] [phone] (Wo rk) documented as of this encounter Procedures Procedure Name Priority Date/Time Associated Comments Diagnosis AUTOMATED Routine 04/26/2011 8:15 PM Results f or this DIFFERENTIAL, B STRAIGHTENING MACHINE FEEDER procedure ar e in the results section. CBC WITH DIFFERENTIAL, Routine 04/26/2011 8:15 PM Results for this B STRAIGHTENING MACHINE FEEDER procedure are i n the results section. HEMOGLOBIN A1C, B Routine 04/26/2011 8:15 PM Resu lts for this STRAIGHTENING MACHINE FEEDER procedure are i n the results section. AMYLASE, TOT, S Routine 04/26/2011 8:15 PM Result s for this STRAIGHTENING MACHINE FEEDER procedure are i n the results section. COMPREHENSIVE Routine 04/26/2011 8:15 PM Results for this METABOLIC PANEL, S/P STRAIGHTENING MACHINE FEEDER procedu re are in the results section. URINALYSIS, ROUTINE Routine 04/26/2011 8:00 PM Re sults for this STRAIGHTENING MACHINE FEEDER procedure are i n the results section. documented in this encounter Results (ABNORMAL) Automated Differential (04/26/2011 8:15 PM STRAIGHTENING MACHINE FEEDER) [facility] Method Time Signature Neutro % 75.3 42.0 - POWERCHART 77.0 Lymphocytes % 16.1 (L) 23.0 - POWERCHART 44.0 HX Bull[place] % 6.1 2.0 - 11.0 POWERCHART HX [...] Laterality Blood 04/26/2011 8:15 PM 2 8:15 STRAIGHTENING MACHINE FEEDER PM STRAIGHTENING MACHINE FEEDER Jerman Arias M.D. LAB BLOOD ADD-ON Performing Organization Address City/State/ZIP Code Phon e Number POWERCHART (ABNORMAL) CBC with Differential (04/26/2011 8:15 PM STRAIGHTENING MACHINE FEEDER) [facility] gist Method Time Signature Leukocytes 11.3 (H) [...] / Volume Laterality Blood 04/26/2011 8:15 PM STRAIGHTENING MACHINE FEEDER Jerman Arias M.D. LAB BLOOD ADD-ON Performing Organization Address City/State/ZIP Code Phon e Number POWERCHART (ABNORMAL) Hemoglobin A1c (04/26/2011 8:15 PM STRAIGHTENING MACHINE FEEDER) Analysis Performed At [facility] logist Time Signature Hemoglobin A1c, 7.49 (H) 4.00 - POWERCHART B 6.00 Specimen (Source) Anatomical Collection Method Collection Time Re ceived Time Location / / Volume Laterality Blood 04/26/2011 8:15 PM STRAIGHTENING MACHINE FEEDER Jerman Arias M.D. LAB BLOOD ADD-ON Performing Organization Address City/State/ZIP Code Phon e Number POWERCHART Amylase, Total (04/26/2011 8:15 PM STRAIGHTENING MACHINE FEEDER) P athologist Signature Amylase, Total, 48 25 - 115 UL POWERCHART S Specimen (Source) Anatomical Collection Method Collection Time Re ceived Time Location / / Volume Laterality Blood 04/26/2011 8:15 PM STRAIGHTENING MACHINE FEEDER Jerman Arias M.D. LAB BLOOD ADD-ON Performing Organization Address City/State/ZIP Code Phon e Number POWERCHART (ABNORMAL) CMP (Comprehensive Metabolic Panel) (04/26/2011 8:15 PM STRAIGHTENING MACHINE FEEDER) Patholo gist Method Time Signature Alanine 18 [...] POWERCHART MMOLL HXeGFR (MDRD) 53 <=61 POWERCHART [id number] 2 Comment: A GFR of <60 mL/min [...] / Volume Laterality Blood 04/26/2011 8:15 PM STRAIGHTENING MACHINE FEEDER Jerman Arias M.D. LAB BLOOD ADD-ON Performing Organization Address City/State/ZIP Code Phon e Number POWERCHART Urinalysis, Routine (04/26/2011 8:00 PM STRAIGHTENING MACHINE FEEDER) [facility] Method Time Signature HXUr Color Yellow POWERCHART Appearance Clear POWERCHART Glucose Negative POWERCHART HXBILIRUBIN Negative POWERCHART Ketones, QL(U) Trace POWERCHART Specific >=1.030 1.000 - POWERCHART [place], POCT, U 1.030 pH, POCT, Urine 5.0 5.0 - 8.0 POWERCHART Protein, Ur, Dip Negative POWERCHART Urobilinogen 0.2 POWERCHART HXNITRITE Negative POWERCHART HXBLOOD Negative POWERCHART Leukocyte Negative POWERCHART Esterase Source Clean Void POWERCHART Urine Specimen (Source) Anatomical Collection Method Collection Time Re ceived Time Location / / Volume Laterality Urine 04/26/2011 8:00 PM STRAIGHTENING MACHINE FEEDER Jerman Arias M.D. LAB URINE ORDERABLES Performing Organization Address City/State/ZIP Code Phon e Number POWERCHART documented in this encounter Visit Diagnoses Not on filedocumented in this encounter
--- OUTSIDE RECORDS SUMMARY | 2022-01-21 13:54 | XMS_ITS | Encounter Summary ---
:1945 Author Organization [facility] Address [address] [place] [address] Care Team Providers Name Role Phone Unavailable [...] Cardiovascular Disease Maritza Currie M.D. [address] [place], [place] [phone] (Wo rk) documented as of this encounter Visit Diagnoses Not on filedocumented in this encounter
--- OUTSIDE RECORDS SUMMARY | 2022-01-21 13:54 | XMS_ITS | Encounter Summary ---
:1945 Author Organization [facility] Address [address] [place] [address] Care Team Providers Name Role Phone Unavailable Primary Care Provider Unavailable Encounter Details Date Type Department Care Team Description 09/26/2010 Hospital Encounter HX [facility] Nicki Anthony, MAL, C.N.P., D. N.P. [address] [place] [address] (Wo rk) Social History Tobacco [...] Disease Maritza Currie M.D. [address] [place], [place] [phone] (Wo rk) documented as of this encounter Visit Diagnoses Not on filedocumented in this encounter
--- OUTSIDE RECORDS SUMMARY | 2022-01-21 13:54 | XMS_ITS | Encounter Summary ---
:1945 Author Organization [facility] Address [address] [place] [address] Care Team Providers Name Role Phone Unavailable Primary Care Provider Unavailable Encounter Details Date Type Department Care Team Description 07/25/2010 Hospital Encounter HX [facility] Nicki Holt, Deana RESENDEZ.N.P., D.N.P. [address] [place], [place] [phone] (Wo rk) Social History [...] Miscellaneous - Nicki Holt D.N.Kvng, C.N.P. - 07/29/2010 9:47 AM CDT Results Notification Document Contains Addenda Addendum by VITALIY VILLEDA LPN on 29 July 2010 12:06:57 CDT Letter sent. From: NICKI HOLT DNP, CASHIER WRAPPER To: VITALIY VILLEDA LPN Sent: 07/29/2010 09:47:31 CDT ! Show up: 07/29/2010 09:47:00 CDT Subject: Results Notification Actions: Notify patient of results Due Date/Time: 07/29/2010 09:47:00 CDT Source: [facility] POWERCHART Document Id: [id number] documented in this encounter Plan of Treatment Upcoming Encounters Date Type Specialty Care Team Description 01/22/2022 Office Visit Cardiovascular Disease Maritza Currie M.D. [address] [place] [phone] (Wo rk) documented as of this encounter Visit Diagnoses Not on filedocumented in this encounter
--- OUTSIDE RECORDS SUMMARY | 2022-01-21 13:54 | XMS_ITS | Encounter Summary ---
:1945 Author Organization [facility] Address [address] [place] [address] Care Team Providers Name Role Phone Unavailable Primary Care Provider Unavailable Encounter Details Date Type Department Care Team Description 01/15/2011 Hospital Encounter [facility] Asha Ramon, MAL, C.N.P., D. N.P. [address] [place], [place] [phone] (Wo rk) Social History [...] Cardiovascular Disease Maritza Currie M.D. [address] [place], [place] [phone] (Wo rk) documented as of this encounter Visit Diagnoses Not on filedocumented in this encounter
--- OUTSIDE RECORDS SUMMARY | 2022-01-21 13:54 | XMS_ITS | Encounter Summary ---
:1945 Author Organization [facility] Address [address] [place] [address] Care Team Providers Name Role Phone Unavailable Primary Care Provider Unavailable Encounter Details Date Type Department Care Team Description 12/21/2009 Hospital Encounter HX [facility] INPT/OBSRV Nicki Anthony, MAL, C.N.P., D.N.P. [address] [place] [address] (Wo rk) Social History Tobacco [...] Cardiovascular Disease Maritza Currie M.D. [address] [place], [place] [phone] (Wo rk) documented as of this encounter Visit Diagnoses Not on filedocumented in this encounter
--- OUTSIDE RECORDS SUMMARY | 2022-01-21 13:54 | XMS_ITS | Encounter Summary ---
:1945 Author Organization [facility] Address [address] [place] [address] Care Team Providers Name Role Phone Unavailable Primary Care Provider Unavailable Encounter Details Date Type Department Care Team Description 10/16/2010 Hospital Encounter HX [facility] Nicki Holt, Deana RESENDEZ.N.P., D.N.P. [address] [place], [place] [phone] (Wo rk) Social History [...] encounter Miscellaneous Notes Miscellaneous - Nicki Holt D.N.Payal., C.N.P. - 10/17/2010 4:22 PM CDT Results Notification From: NICKI HOLT DNP, SALES AND MARKETING DIRECTOR To: RAMONITA GUILLERMO LPN Sent: 10/17/2010 16:22:43 CDT ! Show up: 10/17/2010 16:10:00 CDT Subject: Results Notification Actions: Notify patient of results Due Date/Time: 10/17/2010 16:10:00 CDT Source: [facility] POWERCHART Document Id: [id number] Electronically signed by Conversion, [facility] Black Top Machine Operator [id number] at 07/20/2016 11:40 PM CDT documented in this encounter Plan of Treatment Upcoming Encounters Date Type Specialty Care Team Description 01/22/2022 Office Visit Cardiovascular Disease Maritza Currie M.D. [address] [place] [phone] (Wo rk) documented as of this encounter Visit Diagnoses Not on filedocumented in this encounter
--- OUTSIDE RECORDS SUMMARY | 2022-01-21 13:54 | XMS_ITS | Encounter Summary ---
:1945 Author Organization [facility] Address [address] [place] [address] Care Team Providers Name Role Phone Unavailable Primary Care Provider Unavailable Encounter Details Date Type Department Care Team Description 05/28/2011 Hospital Encounter HX NO MAPPING Dandy Mccarthy, P.TJairo [address] [place], [place] [phone] Social History Tobacco Use [...] Cardiovascular Disease Maritza Currie M.D. [address] [place], [place] [phone] (Wo rk) documented as of this encounter Visit Diagnoses Not on filedocumented in this encounter
--- OUTSIDE RECORDS SUMMARY | 2022-01-21 13:54 | XMS_ITS | Encounter Summary ---
:1945 Author Organization [facility] Address [address] [place] [address] Care Team Providers Name Role Phone Unavailable Primary Care Provider Unavailable Encounter Details Date Type Department Care Team Description 06/27/2010 Hospital Encounter [facility]X [facility] INTERNMED Provider, Lázaro lion Social History [...] Provider Ser - 06/27/2010 12:00 AM CDT [id number] Marcial Adams [address] [place] [phone] [place] June 27, 2010 Dear Niurkaclemencia Almattie Our records indicate that you are approaching [...] to take advantage of this benefit. At [facility] we value and encourage preventive care and health education. It is simple to schedule your appointment. Call [phone] (toll-free: ), let the beamer operator know that you would like to [...] followed by an exam by a physician blood and plasma laboratory assistant who will conduct a thorough health [...] to help you maintain your health. At [facility], we are committed to being you partner for a healthy future. Please call us when you are ready to schedule your appointment. Sincerely, Lana Schaeffer PA-C INTERNAL MEDICINE Source: [facility] Document Id: [id number] documented in this encounter Plan of Treatment Upcoming Encounters Date Type Specialty Care Team Description 01/22/2022 Office Visit Cardiovascular Disease Maritza Currie M.D. [address] [place] [phone] (Wo rk) documented as of this encounter Visit Diagnoses Not on filedocumented in this encounter
--- OUTSIDE RECORDS SUMMARY | 2022-01-21 13:54 | XMS_ITS | Encounter Summary ---
:1945 Author Organization [facility] Address [address] [place] [address] Care Team Providers Name Role Phone Unavailable Primary Care Provider Unavailable Encounter Details Date Type Department Care Team Description 11/14/2010 Hospital Encounter HX NO MAPPING Tam Helm M.D. [address] [place], [place] [phone] (Wo rk) Social History [...] about 30 hours a week in a [employer]. VITAL SIGNS PULSE: 76 and regular BLOOD [...] pedal pulses. 1+ edema. Tam Helm M.D. /arnol Electronically Signed By: Simona HELM MD On: 11/21/2010 01:19 PM Source: [facility] MHSDOLBEYNONRADSYS Document Id: [id number] documented in this encounter Miscellaneous Notes Miscellaneous - Andrea Malhotra R.N. - 11/14/2010 2:45 PM CDT Adult Nurse Practitioner Home Assessments Intake/History Adult Nurse Practitioner Home Assessments Intake/History Entered On: 11/14/2010 14:53 CDT Performed On: 11/14/2010 14:45 CDT by ANDREA MALHOTRA side panel padder Chief Complaint: Here to establish care - [...] By: Patient Preferred Communication Mode: Verbal Languages: Luxembourger ANDREA MALHOTRA RN - 11/14/2010 14:45 CDT Subjective Pain Symptoms: No ANDREA MALHOTRA RN - 11/14/2010 14:45 CDT Dependent Habits Tobacco Use/Currently Using: No Alcohol Use: No ANDREA MALHOTRA RN - 11/14/2010 14:45 CDT Caffeine Use Grid Caffeine Use: Current Type: Tea Frequency: Occasionally ANDREA MALHOTRA RN - 11/14/2010 14:45 CDT Recreational Drug Use [...] MALHOTRA RN - 11/14/2010 14:45 CDT [facility] Document Id: [id number] CDT!72 documented in this encounter Plan of Treatment Upcoming Encounters Date Type Specialty Care Team Description 01/22/2022 Office Visit Cardiovascular Disease Maritza Currie M.D. [address] [place] [phone] (Wo rk) documented as of this encounter Visit Diagnoses Not on filedocumented in this encounter
--- OUTSIDE RECORDS SUMMARY | 2022-01-21 13:54 | XMS_ITS | Encounter Summary ---
:1945 Author Organization [facility] Address [address] [place] [address] Care Team Providers Name Role Phone Unavailable Primary Care Provider Unavailable Encounter Details Date Type Department Care Team Description 06/11/2011 Hospital Encounter HX NO MAPPING Dandy Mccarthy P.T. [address] [place], [place] [phone] Social History Tobacco Use [...] Mccarthy P.T. - 06/11/2011 12:00 AM CDT [id number] Message left on pt's voice confirmed voice mail. Source: [facility] RWMCHXTRANSXRTFSYS Document Id: [id number] documented in this encounter Plan of Treatment Upcoming Encounters Date Type Specialty Care Team Description 01/22/2022 Office Visit Cardiovascular Disease Maritza Currie M.D. [address] [place], [place] [phone] (Wo rk) documented as of this encounter Visit Diagnoses Not on filedocumented in this encounter
--- OUTSIDE RECORDS SUMMARY | 2022-01-21 13:54 | XMS_ITS | Encounter Summary ---
:[address] [facility] Address [address] [place] [address] Care Team Providers Name Role Phone Unavailable Primary Care Provider Unavailable Encounter Details Date Type Department Care Team Description 01/16/2011 Hospital Encounter HX [facility] Vickey Holt, MAL, Deana.N.P., D. N.P. [address] [place] [address] (Wo rk) Social History Tobacco [...] Maritza.N.P., C.N.P. - 01/16/2011 12:00 AM CST [id number] CHIEF COMPLAINT/REASON FOR VISIT 1. Routine physical. [...] x 3. HEAD: Normocephalic/atraumatic. PUPILS: GENE. OROPHARYNX: [place] and moist. TMs: Bilateral TMs are clear, [...] DNP, FNP On: 01/27/2011 11:30 AM Source: [facility] MHSDOLBEYNONRADSYS Document Id: [id number] ANALYST documented in this encounter Miscellaneous Notes Miscellaneous - Vickey Holt D.N.P., C.N.P. - 01/16/2011 9:11 PM TEST ANALYST Ambulatory Patient Summary [id number] [place] [address] Visit Information Name: MARCIAL BAZAN Current Date: [...] No Appointments found Your Goals/Additional instructions: Source: [facility] POWERCHART Document Id: [id number] ANALYST Miscellaneous - Vickey Holt, D.N.P., C.N.P. - 01/16/2011 9:11 PM TEST ANALYST Ambulatory Depart Summary [id number] [place] [address] Visit Information Name: MARCIAL BAZAN Current Date: 01/16/2011 21:11:06 Primary Care Provider: VICKEY HOLT DNP, TEMPLATE WORKER MARCIAL BAZAN has been given the following [...] to the patient and/or family, guardian/caregiver. Source: [facility] POWERCHART Document Id: [id number] ANALYST Miscellaneous - Vickey Holt, Maritza.N.P., C.N.P. - 01/16/2011 9:11 PM TEST ANALYST Quality Measures Quality Measures Entered On: 01/16/2011 21:11 TEST ANALYST Performed On: 01/16/2011 21:11 TEST ANALYST by VICKEY HOLT DNP, FNP Diabetes Date of Last Foot Exam : 01/16/2011 TEST ANALYST VICKEY HOLT DNP, FNP - 01/16/2011 21:11 TEST ANALYST Foot Exam Grid Left foot exam Right foot exam Dorsalis Pedis Pulse : Normal Normal Post Tibial Pulse : Normal Normal Capillary Refill : Less than 3 seconds Less than 3 seconds 10 gm Monofilament Sensation Check : Intact Intact VICKEY HOLT DNP, [facility] - 01/16/2011 21:11 TEST ANALYST VICKEY HOLT DNP, [facility] - 01/16/2011 21:11CST Source: [employer] Document Id: [id number] TEST ANALYST!14 ANALYST Miscellaneous - Sylvia Darnell L.P.NJairo - 01/16/2011 9:25 AM CST Health Assessment Health Assessment Entered On: 01/16/2011 9:25 TEST ANALYST Performed On: 01/16/2011 9:25 TEST ANALYST by SYLVIA DARNELL LPN Nutrition Nutrition Risk Factors by History Adult : None SYLVIA DARNELL LPN - 01/16/2011 9:25 TEST ANALYST Functional Current Daily Living Assistance : None SYLVIA DARNELL LPN - 01/16/2011 9:25 TEST ANALYST Dependent Habits Tobacco Use/Currently Using : No Exposure to Tobacco Smoke : Care provider denies smoking in home Smoking Status : Never smoker SYLVIA DARNELL LPN - 01/16/2011 9:25 TEST ANALYST Caffeine Use Grid Caffeine Use : Current Type : Tea Frequency : Occasionally SYLVIA DARNELL LPN - 01/16/2011 9:25 TEST ANALYST Recreational Drug Use Grid Drug Use : None SYLVIA DARNELL LPN - 01/16/2011 9:25 TEST ANALYST Psychosocial Domestic Abuse Concerns : None SYLVIA DARNELL LPN - 01/16/2011 9:25 TEST ANALYST Advance Directive Advanced Directives : No SYLVAI DARNELL LPN - 01/16/2011 9:25 TEST ANALYST Educ Needs Learning Style Preference Adult Grid Patient : None Family : None SYLVIA DARNELL LPN - 01/16/2011 9:25 TEST ANALYST Source: [employer] Document Id: [id number] TEST ANALYST!25 ANALYST Miscellaneous - Sylvia Darnell L.PJairoNJairo - 01/16/2011 9:16 AM CST Adult Preparer Samples And Repairs Intake/History Adult Preparer Samples And Repairs Intake/History Entered On: 01/16/2011 9:24 TEST ANALYST Performed On: 01/16/2011 9:16 TEST ANALYST by SYLVIA DARNELL LPN Intake Chief Complaint [...] 90.20kg SYLVIA DARNELL LPN - 01/16/2011 9:16 TEST ANALYST Subjective Pain Symptoms : No SYLVIA DARNELL LPN - 01/16/2011 9:16 TEST ANALYST Dependent Habits Tobacco Use/Currently Using : No Tobacco Use/Last 12 months : No Exposure to Tobacco Smoke : Care provider denies smoking in home Smoking Status : Never smoker Alcohol Use : No SYLVIA DARNELL LPN - 01/16/2011 9:16 TEST ANALYST Caffeine Use Grid Caffeine Use : Current Type : Tea Frequency : Occasionally SYLVIA DARNELL LPN - 01/16/2011 9:16 TEST ANALYST Recreational Drug Use Grid Drug Use : None SYLVIA DARNELL LPN - 01/16/2011 9:16 TEST ANALYST Allergy Allergies (Active) azithromycin Estimated Onset Date: Unspecified ; Created By: PETRA RUSSELL LPN; Reaction Status: Active ; Category: Drug ; Substance: azithromycin ; Type: Allergy ; Updated By: PETRA RUSSELL LPN; Reviewed Date: 01/16/2011 9:05 TEST ANALYST Benicar Estimated Onset Date: Unspecified ; Created By: PETRA RUSSELL LPN; Reaction Status: Active ; Category: Drug ; Substance: Benicar ; Type: Allergy ; Updated By: PETRA RUSSELL LPN; Reviewed Date: 01/16/2011 9:05 TEST ANALYST Source: [facility] POWERCHART Document Id: [id number] TEST ANALYST!30 ANALYST documented in this encounter Plan of Treatment Upcoming Encounters Date Type Specialty Care Team Description 01/22/2022 Office Visit Cardiovascular Disease Maritza Currie M.D. [address] [place] [phone] (Wo rk) documented as of this encounter Procedures Procedure Name Priority Date/Time Associated Diagnosis Comme nts THINPREP SCREEN HPV Routine 01/16/2011 10:30 AM R esults for this REFLEX TEST ANALYST procedure are i n the results section. documented in this encounter Results ThinPrep Screen HPV Reflex (01/16/2011 10:30 AM TEST ANALYST) [facility] Method Time Signature Interpretation [id number] POWERCHART HXThPrep Scrn See Comment POWERCHART Fnl-Mcalpin Comment: A. ??ThinPrep Pap Test Screen (Cervical/ Endocervical HPV Reflex): Satisfactory for evaluation. Negative for intraepithelial lesion or m alignancy. HXThPrep Scrn Cyto-Mcalpin See Comment KAIT AVILA Comment: Report electronically signed by BLANCA Pinto(ASCP) 01/20/2011 16:53 Interpreted by: BLANCA Pinto(ASCP) [facility] See Comment POWERCHART Comment: A. ??ThinPrep Pap Test Screen (Cervical/ Endocervical HPV Reflex): Received cloudy specimen in ThinPrep via l. Test Performed by: [facility] Dpt of Lab Med and Pathology [address] [place] [id number] Ribbon Winder: Donovan calderon III, M.D. Specimen (Source) Anatomical Collection Method Collection Time Re ceived Time Location / / Volume Laterality Cervix/Endocervix 01/16/2011 10:30 AM TEST ANALYST Vickey Holt APRN, C.N.P., D.N.P. LAB PAP PATHDX ORDERABLES Performing Organization Address City/State/ZIP Code Phon e Number POWERCHART documented in this encounter Visit Diagnoses Not on filedocumented in this encounter
--- OUTSIDE RECORDS SUMMARY | 2022-01-21 13:54 | XMS_ITS | Encounter Summary ---
:1945 Author Organization [facility] Address [address] [place] [address] Care Team Providers Name Role Phone Unavailable Primary Care Provider Unavailable Encounter Details Date Type Department Care Team Description 01/15/2011 Hospital Encounter HX [facility] Nicki Anthony, MAL, C.N.P., D.N.P. [address] [place], [place] [phone] (Wo rk) Social History [...] Cardiovascular Disease Maritza Currie M.D. [address] [place], [place] [phone] (Wo rk) documented as of this encounter Visit Diagnoses Not on filedocumented in this encounter
--- OUTSIDE RECORDS SUMMARY | 2022-01-21 13:54 | XMS_ITS | Encounter Summary ---
:1945 Author Organization [facility] Address [address] [place] [address] Care Team Providers Name Role Phone Unavailable Primary Care Provider Unavailable Encounter Details Date Type Department Care Team Description 02/21/2010 Hospital Encounter HX [facility] INPT/OBSRV Jermaine Yost P.A.-C., P.A. [address] [place] [address] (Wo karthik) Social History Tobacco Use Types [...] Cardiovascular Disease Maritza Currie M.D. [address] [place], [place] [phone] (Wo rk) documented as of this encounter Visit Diagnoses Not on filedocumented in this encounter
--- OUTSIDE RECORDS SUMMARY | 2022-01-21 13:54 | XMS_ITS | Encounter Summary ---
:1945 Author Organization [facility] Address [address] [place] [address] Care Team Providers Name Role Phone Unavailable Primary Care Provider Unavailable Encounter Details Date Type Department Care Team Description 03/31/2011 Hospital Encounter [facility] Nicki Holt, MAL, Deana.N.P., D. N.P. [address] [place] [address] (Wo rk) Social History Tobacco [...] Comments Blood Pressure 126/62 03/31/2011 8:32 AM MEDICAL BILLING REPRESENTATIVE Pulse 64 03/31/2011 8:32 AM MEDICAL BILLING REPRESENTATIVE Temperature - - Respiratory Rate 18 03/31/2011 8:32 AM MEDICAL BILLING REPRESENTATIVE Oxygen Saturation - - Inhaled Oxygen Concentration - - Weight 88.9 kg (195 lb 15.8 oz) 03/31/2011 8:32 AM MEDICAL BILLING REPRESENTATIVE Height - - Body Mass Index - - documented in this encounter Progress Notes Nicki Holt, Maritza.N.P., C.N.P. - 03/31/2011 12:00 AM CST [id number] CHIEF COMPLAINT/REASON FOR VISIT Sinus congestion. HISTORY [...] has been taking some Mucinex and Sudafed aqss-yqn-lzyzqqg as directed on package on an as [...] DNP, FNP On: 04/01/2011 03:01 PM Source: [facility] MHSDOLBEYNONRADSYS Document Id: [id number] CAL BILLING REPRESENTATIVE documented in this encounter Miscellaneous Notes Miscellaneous - Nicki Holt D.N.P., C.N.P. - 03/31/2011 8:47 AM MEDICAL BILLING REPRESENTATIVE Ambulatory Patient Summary [address] [address] Visit Information Name: ARCHIE BAZAN Current Date: [...] Appointments found Your Goals/Additional instructions: Source: [facility] POWERCHART Document Id: [id number] CAL BILLING REPRESENTATIVE Miscellaneous - Nicki Holt, Maritza.N.P., C.N.P. - 03/31/2011 8:47 AM MEDICAL BILLING REPRESENTATIVE Ambulatory Depart Summary [address] [address] Visit Information Name: ARCHIE BAZAN Current Date: [...] to the patient and/or family, guardian/caregiver. Source: [facility] POWERCHART Document Id: [id number] CAL BILLING REPRESENTATIVE Miscellaneous - Diana Cardoza L.P.N. - 03/31/2011 8:34 AM CST Health Assessment Health Assessment Entered On: 03/31/2011 8:34 MEDICAL BILLING REPRESENTATIVE Performed On: 03/31/2011 8:34 MEDICAL BILLING REPRESENTATIVE by DIANA CARDOZA LPN Health Assessment Complete Health Assessment Complete or Modified : Annual Health Assessment Annual Health Assessment Completed : Yes DIANA CARDOZA LPN - 03/31/2011 8:34 MEDICAL BILLING REPRESENTATIVE Nutrition Nutrition Risk Factors by History Adult : None DIANA CARDOZA LPN - 03/31/2011 8:34 MEDICAL BILLING REPRESENTATIVE Functional Current Daily Living Assistance : None DIANA CARDOZA LPN - 03/31/2011 8:34 MEDICAL BILLING REPRESENTATIVE Dependent Habits Tobacco Use/Currently Using : No Tobacco Use/Last 12 months : No Tobacco Use/Advised to Quit : No Exposure to Tobacco Smoke : Care provider denies smoking in home Smoking Status : Never smoker DIANA CARDOZA LPN - 03/31/2011 8:34 MEDICAL BILLING REPRESENTATIVE Caffeine Use Grid Caffeine Use : Current Type : Tea Frequency : Occasionally DIANA CARDOZA LPN - 03/31/2011 8:34 MEDICAL BILLING REPRESENTATIVE Recreational Drug Use Grid Drug Use : None DIANA CARDOZA LPN - 03/31/2011 8:34 MEDICAL BILLING REPRESENTATIVE Psychosocial Domestic Abuse Concerns : None DIANA CARDOZA LPN - 03/31/2011 8:34 MEDICAL BILLING REPRESENTATIVE Advance Directive Advanced Directives : No DIANA CARDOZA LPN - 03/31/2011 8:34 MEDICAL BILLING REPRESENTATIVE Educ Needs Learning Style Preference Adult Grid Patient : None Family : None DIANA CARDOZA LPN - 03/31/2011 8:34 MEDICAL BILLING REPRESENTATIVE Source: [facility] POWERCHART Document Id: [id number] MEDICAL BILLING REPRESENTATIVE!30 CAL BILLING REPRESENTATIVE Miscellaneous - Diana Cardoza L.P.N. - 03/31/2011 8:32 AM CST Adult Technical Translator Intake/History Adult Technical Translator Intake/History Entered On: 03/31/2011 8:34 MEDICAL BILLING REPRESENTATIVE Performed On: 03/31/2011 8:32 MEDICAL BILLING REPRESENTATIVE by DIANA CARDOZA LPN Intake Chief Complaint [...] 88.90kg DIANA CARDOZA LPN - 03/31/2011 8:32 MEDICAL BILLING REPRESENTATIVE Subjective Pain Symptoms : Yes DIANA CARDOZA LPN - 03/31/2011 8:32 MEDICAL BILLING REPRESENTATIVE Pain Pain Assessment Grid Pain 1 Location : Throat DIANA CARDOZA LPN - 03/31/2011 8:32 MEDICAL BILLING REPRESENTATIVE Dependent Habits Tobacco Use/Currently Using : No Tobacco Use/Last 12 months : No Tobacco Use/Advised to Quit : No Exposure to Tobacco Smoke : Care provider denies smoking in home Smoking Status : Never smoker DIANA CARDOZA LPN - 03/31/2011 8:32 MEDICAL BILLING REPRESENTATIVE Caffeine Use Grid Caffeine Use : Current Type : Tea Frequency : Occasionally DIANA CARDOZA LPN - 03/31/2011 8:32 MEDICAL BILLING REPRESENTATIVE Recreational Drug Use Grid Drug Use : None DIANA CARDOZA LPN - 03/31/2011 8:32 MEDICAL BILLING REPRESENTATIVE Allergy Allergies (Active) azithromycin Estimated Onset Date: Unspecified ; Created By: PETRA RUSSELL LPN; Reaction Status: Active ; Category: Drug ; Substance: azithromycin ; Type: Allergy ; Updated By: PETRA RUSSELL LPN; Reviewed Date: 01/16/2011 9:05 MEDICAL BILLING REPRESENTATIVE Benicar Estimated Onset Date: Unspecified ; Created By: PETRA RUSSELL LPN; Reaction Status: Active ; Category: Drug ; Substance: Benicar ; Type: Allergy ; Updated By: PETRA RUSSELL LPN; Reviewed Date: 01/16/2011 9:05 MEDICAL BILLING REPRESENTATIVE Source: [facility] [employer] Document Id: [id number] MEDICAL BILLING REPRESENTATIVE!35 CAL BILLING REPRESENTATIVE documented in this encounter Plan of Treatment Upcoming Encounters Date Type Specialty Care Team Description 01/22/2022 Office Visit Cardiovascular Disease Maritza Currie M.D. [address] [place] [phone] (Wo rk) documented as of this encounter Visit Diagnoses Not on filedocumented in this encounter
--- OUTSIDE RECORDS SUMMARY | 2022-01-21 13:54 | XMS_ITS | Encounter Summary ---
:1945 Author Organization [facility] Address [address] [place] [address] Care Team Providers Name Role Phone Unavailable Primary Care Provider Unavailable Encounter Details Date Type Department Care Team Description 04/28/2011 Hospital Encounter [facility] Vickey Holt, MAL, C.N.P., D. N.P. [address] [place] [address] (Wo rk) Social History Tobacco [...] CURRENT MEDICATIONS, IMPRESSION/REPORT/PLAN by Vickey Holt D.N.P., Stanislav.N.P. PAST MEDICAL/SURGICAL HISTORY Past medical history included: [...] general anesthesia. Information sent to Daniela Yates, legal administrative secretary to Dr. Carl Correa at [facility] Department of Urology. CHIEF COMPLAINT [...] x 3. HEAD: Normocephalic/atraumatic. PUPILS: GENE. OROPHARYNX: [place] and moist. TMs: Bilateral TMs are clear, [...] given information regarding renal calculi from the [facility] site. We will plan on [...] the treatment of renal calculi and cystoceles. Vikcey Holt D.N.P., NereidaN.P. /rodrick Electronically Signed By: VICKEY HOLT DNP, FNP On: 04/29/2011 11:21 AM Vickey Holt D.N.P., F.NRegina /arnol Electronically Signed By: VICKEY HOLT DNP, FNP On: 04/29/2011 11:21 AM Co-Signed By: VICKEY HOLT DNP, FNP On: 05/05/2011 06:36 PM Source: [facility] MHSDOLBEYNONRADSYS Document Id: [id number] CHIEF COMPLAINT 1) Followup ER visit. 2) [...] x 3. HEAD: Normocephalic/atraumatic. PUPILS: GENE. OROPHARYNX: [place] and moist. TMs: Bilateral TMs are clear, [...] regarding renal calculi from the [facility] Education site. We will plan on referring [...] DNP, FNP On: 04/29/2011 11:21 AM Source: [facility] MHSDOLBEYNONRADSYS Document Id: [id number] documented in this encounter Nursing Notes Conversion, Historical Provider Ser - 04/29/2011 3:54 PM CDT Referrals 1. Referral to Urology @ [facility]. Urology Dept will triage and let pt know appt time & place. 2. Referral to Dr. Colon - ROTARY LITHOGRAPHIC PRESS OPERATOR - @ R. Appt scheduled for 05-07-11 @ 0830 - report time (appt@ 0845). Pt informed of date, time & place of appt. Electronically Signed By: DIANNE AMADOR LPN On: 05/01/2011 04:03 PM Source: [facility] POWERCHART Document Id: [id number] documented in this encounter Miscellaneous Notes Miscellaneous - Vickey Holt D.N.P., C.N.P. - 04/28/2011 8:33 AM CDT Ambulatory Patient Summary [id number] [place] [address] Visit Information Name: MARCIAL BAZAN Current Date: [...] No Appointments found Your Goals/Additional instructions: Source: [facility] POWERCHART Document Id: [id number] Miscellaneous - Vickey Holt D.N.P., C.N.P. - 04/28/2011 8:33 AM CDT Ambulatory Depart Summary [id number] [place] [address] Visit Information Name: MARCIAL BAZAN Visit Date: [...] clarification. Additional Information: Yes - . Source: [facility] POWERCHART Document Id: [id number] Miscellaneous - Ascencioalejandro Anderson L.P.N. - 04/28/2011 7:57 AM CDT Adult Manager Of Business Operations Intake/History Document Has Been Updated Adult Manager Of Business Operations Intake/History Entered On: 04/28/2011 8:01 CDT Performed On: 04/28/2011 7:57 CDT by SYLVIA DARNELL LPN Intake Chief Complaint : Feels like everything is going to fall out of sarah area, No bleeding, getting worse Thursday seen in ER for Kidney stone SYLVIA DARNELL DINAH - 04/28/2011 8:01 CDT Onset of Symptoms : x2-3wks Temperature Core : 36.0C(Converted to: 96.8DegF) (LOW) Peripheral Pulse Rate : 88/min Respiratory Rate : 16/min Heart Rhythm : Regular Systolic Blood Pressure : 120mmHg Diastolic Blood Pressure : 56mmHg NIBP Mean : 77mmHg BP Location : Left upper extremity Blood Pressure Cuff Size : Regular SYLVIA DARNELL Justin NIX - 04/28/2011 7:57 CDT Subjective Pain Symptoms : No ASCENCIOALEJANDRO Anderson LPN - 04/28/2011 7:57 CDT Dependent Habits Tobacco Use/Currently Using : No Exposure to Tobacco Smoke : Care provider denies smoking in home Smoking Status : Never smoker Alcohol Use : No SYLVIA DARNELL Justin NIX - 04/28/2011 7:57 CDT Caffeine Use Grid Caffeine Use : Current Type : Tea Frequency : Occasionally ASCENCIOALEJANDRO Anderson LPN - 04/28/2011 7:57 CDT Recreational [...] LPN; Reviewed Date: 04/28/2011 7:57 CDT Source: [facility] POWERCHART Document Id: [id number] CDT!3 documented in this encounter Plan of Treatment Upcoming Encounters Date Type Specialty Care Team Description 01/22/2022 Office Visit Cardiovascular Disease Maritza Currie M.D. [address] [place] [phone] (Wo rk) documented as of this encounter Visit Diagnoses Not on filedocumented in this encounter
--- OUTSIDE RECORDS SUMMARY | 2022-01-21 13:54 | XMS_ITS | Encounter Summary ---
:1945 Author Organization [facility] Address [address] [place] [address] Care Team Providers Name Role Phone Unavailable [...] Cardiovascular Disease Maritza Currie M.D. [address] [place], [place] [phone] (Wo rk) documented as of this encounter Visit Diagnoses Not on filedocumented in this encounter
--- OUTSIDE RECORDS SUMMARY | 2022-01-21 13:54 | XMS_ITS | Encounter Summary ---
:1945 Author Organization [facility] Address [address] [place] [phone] Care Team Providers Name Role Phone Unavailable Primary Care Provider Unavailable Encounter Details Date Type Department Care Team Description 05/20/2011 Hospital Encounter [facility]X [facility] Tona Colon M.D. Social History Tobacco [...] Colon M.D. - 05/20/2011 2:00 PM CDT [id number] MS. Adasm was sent by Singh Pearl NP From [place] for a consult to evaluate incontinence. HPI: She is a 65 year old Obstetric History T0 TAB0 SAB1 E0 M0 L2 with No LMP recorded. Patient is postmenopausal. She has been having trouble with leaking urine and her bladder dropping. 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 Source: [facility] Document Id: [id number] documented in this encounter Plan of Treatment Upcoming Encounters Date Type Specialty Care Team Description 01/22/2022 Office Visit Cardiovascular Disease Maritza Currie M.D. [address] [place] [phone] (Wo rk) documented as of this encounter Visit Diagnoses Not on filedocumented in this encounter
--- OUTSIDE RECORDS SUMMARY | 2022-01-21 13:54 | XMS_ITS | Encounter Summary ---
:1945 Author Organization [facility] Address [address] [place] [address] Care Team Providers Name Role Phone Unavailable Primary Care Provider Unavailable Encounter Details Date Type Department Care Team Description 01/07/2011 [facility] Nicki Holt, MAL, Deana.N.P., D. N.P. [address] [place] [address] (Wo rk) Social History Tobacco [...] Maritza.N.P., C.N.P. - 01/07/2011 12:00 AM CST [id number] CHIEF COMPLAINT/REASON FOR VISIT Medication refills. HISTORY [...] occasionally and reports that she has used kqzh-mpe-lssvivv Vaseline and alcohol with no symptom improvement. [...] understanding of the content. Nicki Holt D.N.P., NereidaN.Kvng /felix Electronically Signed By: NICKI HOLT DNP, FNP On: 01/14/2011 07:48 PM Source: [facility] MHSDOLBEYNONRADSYS Document Id: [id number] INSURANCE SALES documented in this encounter Miscellaneous Notes Miscellaneous - Nicki Holt D.N.P., C.N.P. - 01/07/2011 8:41 AM LIFE INSURANCE SALES Ambulatory Patient Summary [address] [address] Visit Information Name: ARCHIE BAZAN Current Date: [...] No Appointments found Your Goals/Additional instructions: Source: [facility] POWERCHART Document Id: [id number] INSURANCE SALES Miscellaneous - Nicki Holt D.N.P., C.N.P. - 01/07/2011 8:41 AM LIFE INSURANCE SALES Ambulatory Depart Summary [address] [address] Visit Information Name: ARCHIE BAZAN Current Date: 01/07/2011 08:41:08 Primary Care Provider: NICKI HOLT DNP, NEWSPAPER EDITOR MANAGING ARCHIE BAZAN has been given the following [...] to the patient and/or family, guardian/caregiver. Source: [facility] POWERCHART Document Id: [id number] INSURANCE SALES Miscellaneous - Karla Woods L.P.N. - 01/07/2011 7:48 AM CST Adult Customer Sales Consultant Intake/History Adult Customer Sales Consultant Intake/History Entered On: 01/07/2011 7:51 LIFE INSURANCE SALES Performed On: 01/07/2011 7:48 LIFE INSURANCE SALES by KARLA WOODS LPN, RT Intake Chief [...] KARLA WOODS LPN, RT - 01/07/2011 7:48 LIFE INSURANCE SALES General Info Information Given By : Patient Preferred Communication Mode : Verbal Languages : French KARLA WOODS LPN, RT - 01/07/2011 7:48 LIFE INSURANCE SALES Subjective Pain Symptoms : No KARLA WOODS LPN, RT - 01/07/2011 7:48 LIFE INSURANCE SALES Dependent Habits Tobacco Use/Currently Using : No Smoking Status : Never smoker Alcohol Use : No KARLA WOODS LPN, RT - 01/07/2011 7:48 LIFE INSURANCE SALES Caffeine Use Grid Caffeine Use : Current Type : Tea Frequency : Occasionally KARLA WOODS LPN, RT - 01/07/2011 7:48 LIFE INSURANCE SALES Recreational Drug Use Grid Drug Use : None KARLA WOODS LPN, RT - 01/07/2011 7:48 LIFE INSURANCE SALES Allergy Allergies (Active) azithromycin Estimated Onset Date: [...] LPN; Reviewed Date: 11/14/2010 14:45 CDT Source[facility] Document Id: [id number] LIFE INSURANCE SALES!33 INSURANCE SALES documented in this encounter Plan of Treatment Upcoming Encounters Date Type Specialty Care Team Description 01/22/2022 Office Visit Cardiovascular Disease Maritza Currie M.D. [address] [place] [phone] (Wo rk) documented as of this encounter Visit Diagnoses Not on filedocumented in this encounter
--- OUTSIDE RECORDS SUMMARY | 2022-01-21 13:54 | XMS_ITS | Encounter Summary ---
:1945 Author Organization [facility] Address [address] [place] [address] Care Team Providers Name Role Phone Unavailable Primary Care Provider Unavailable Encounter Details Date Type Department Care Team Description 10/16/2010 Hospital Encounter HX [facility] Nicki Anthony, MAL, C.N.P., D. N.P. [address] [place] [address] (Wo rk) Social History Tobacco [...] Notes Miscellaneous - Vitaliy Darnell L.P.N. - 10/16/2010 8:40 AM CDT Ambulatory Vitals Height Weight Ambulatory Vitals Height Weight Entered On: 10/16/2010 8:41 CDT Performed On: 10/16/2010 8:40 CDT by VITALIY DARNELL LPN Vitals/Ht/Wt Peripheral Pulse Rate: 64/min Respiratory Rate: 16/min Systolic Blood Pressure: 116mmHg Diastolic Blood Pressure: 68mmHg NIBP Mean: 84mmHg BP Location: Right upper extremity VITALIY DARNELL LPN - 10/16/2010 8:40 CDT Source: [facility] POWERCHART Document Id: [id number] CDT!8 documented in this encounter Plan of Treatment Upcoming Encounters Date Type Specialty Care Team Description 01/22/2022 Office Visit Cardiovascular Disease Maritza Currie M.D. [address] [place], [place] [phone] (Wo rk) documented as of this encounter Visit Diagnoses Not on filedocumented in this encounter
--- OUTSIDE RECORDS SUMMARY | 2022-01-21 13:54 | XMS_ITS | Encounter Summary ---
:1945 Author Organization [facility] Address [address] [place] [address] Care Team Providers Name Role Phone Unavailable Primary Care Provider Unavailable Encounter Details Date Type Department Care Team Description 05/25/2010 Hospital Encounter HX [facility] Nicki Holt, Deana RESENDEZ.N.P., D.N.P. [address] [place], [place] [phone] (Wo rk) Social History [...] Miscellaneous - Nicki Holt D.N.Payal., C.N.P. - 05/28/2010 7:57 PM CDT Results Notification Document Contains Addenda Addendum by VITALIY VILLEDA LPN on 29 May 2010 09:27:33 CDT already taken care of. From: NICKI HOLT DNP, TELEVISION REPAIRMAN To: RAMONITA GUILLERMO LPN Sent: 05/28/2010 19:57:24 CDT ! Show up: 05/28/2010 19:57:00 CDT Subject: Results Notification Actions: Notify patient of results Due Date/Time: 05/28/2010 19:57:00 CDT Source: [facility] POWERCHART Document Id: [id number] Electronically signed by Conversion, [facility] Senior Ui Designer [id number] at 07/20/2016 11:20 AM CDT documented in this encounter Plan of Treatment Upcoming Encounters Date Type Specialty Care Team Description 01/22/2022 Office Visit Cardiovascular Disease Maritza Currie M.D. [address] [place] [phone] (Wo rk) documented as of this encounter Visit Diagnoses Not on filedocumented in this encounter
--- OUTSIDE RECORDS SUMMARY | 2022-01-21 13:54 | XMS_ITS | Encounter Summary ---
:1945 Author Organization [facility] Address [address] [place] [address] Care Team Providers Name Role Phone Unavailable Primary Care Provider Unavailable Encounter Details Date Type Department Care Team Description 06/11/2010 Hospital Encounter HX [facility] ED Ralf Parker M.D. [address] [place], [place] [phone] (Wo rk) Social History [...] 06/11/2010 11:54 PM CDT ED Discharge Instructions [address] [address] Name: ARCHIE BAZAN Date of : 1945 12:[birth year] AM Visit Date: 06/11/2010 10:01 PM Address: [address] [place] [phone] Primary Care Provider: VICKEY HOLT DNP, CONFIGURATION RELEASE MANAGER IMPORTANT: [facility] would like to thank you for allowing us to assist you with your healthcare needs. The following includes patient education materials and information regarding your injury/illness. Follow-Up Instructions: With: Address: When: VICKEY HOLT [address] [place] [address] phone, business (1) Within As Needed Comments: Patient Education Materials: [id number] CHEST WALL PAIN:COSTOCHONDRITIS The chest pain that [...] Fever over 100.0?? F (37.8?? C) ?? 2049-3382 [employer], [address] [place] [address], [place] [address]. All rights reserved. This information is not [...] ride home with a responsible democrat. I, ARCHIE BAZAN , or responsible democrat have received [...] document has images extracted. Please consider using [employer] for all your patient education needs. Source: [facility] POWERCHART Document Id: [id number] Conversion, Historical Provider Ser - 06/11/2010 11:54 PM CDT ED Depart Summary [facility] Emergency Department Clinical Discharge Summary PERSON INFORMATION Name ARCHIE BAZAN Age 65 Years 1945 12:00 AM Sex Female Language Greenlandic PCP VICKEY HOLT DNP, CONFIGURATION RELEASE MANAGER Marital Status N [id number] Visit Id Visit Reason Chest pain; Chest pain; chest pain Specialty Enc Type Emergency Med Service Emergency Medicine Referred by Track Group [facility] ED Discharge 06/11/2010 11:54 PM Tracking Id [id number] Checkout 06/11/2010 11:54 PM Checkin 06/11/2010 10:01 PM Acuity 3 -Urgent Dispo Type Discharged to Home or Self Care Arrival 06/11/2010 10:01 PM Reg Status LOS 000 01:53 Address: [address] [place] [phone] Comment: PROVIDER INFORMATION DIAGNOSIS Costochondritis 733.6 Comment: PATIENT EDUCATION INFORMATION Instructions: CHEST WALL PAIN, Costochondritis Follow up: With: Address: When: VICKEY HOLT [address] [place] [address] phone, business (1) Within As Needed Comments: [facility] [employer] Document Id: [id number] documented in this encounter Nursing Notes Conversion, Historical Provider Ser - 06/11/2010 11:01 PM CDT pain fluctuation Chest discomfort developed this evening while watching tv at home, rated 4/10. States pain increases with deep inhalation and with movement. Skin warm, dry pink [facility] [employer] Document Id: [id number] Conversion, Historical Provider Ser - 06/11/2010 10:51 PM CDT ED Pain Assessment ED Pain Assessment Entered On: 06/11/2010 22:53 CDT Performed On: 06/11/2010 22:51 CDT by EMMA MCKEON RN Pain Pain Assessment Grid Pain 1 Location: Chest Acceptable Intensity: 3 Aggravating Factors: Movement EMMA MCKEON RN - 06/11/2010 22:51 CDT Source: [facility] [employer] Document Id: [id number] CDT!7 Conversion, Historical Provider Ser - 06/11/2010 [...] Contributor System: PowerChart ; Last Updated: 03/19/2010 10:21 POTATO PEELER ; Life Cycle Date: 03/19/2010 ; Life Cycle Status: Active ; Responsible Provider: PETRA RUSSELL LPN; Vocabulary: ICD-9-CM Hyperlipidemia/Dyslipidemia Name of Problem: Hyperlipidemia/Dyslipidemia ; Onset Date: 2004 ; Recorder: PETRA RUSSELL LPN; Confirmation: Confirmed ; Classification: Nursing ; Code: 1231 ; Contributor System: PowerChart ; Last Updated: 03/19/2010 10:15 POTATO PEELER ; Life Cycle Date: 03/19/2010 ; Life Cycle Status: Active ; Responsible Provider: PETRA RUSSELL LPN; Vocabulary: ICD-9-CM NIDDM [non-insulin dependent diabetes mellitus] Name of Problem: NIDDM [non- insulin dependent diabetes mellitus] ; Onset Date: 2007 ; Recorder: PETRA RUSSELL LPN; Confirmation: Confirmed ; Classification: Nursing ; Code: 1231 ; Contributor System: PowerChart ; Last Updated: 03/19/2010 10:14 POTATO PEELER ;Life Cycle Date: 03/19/2010 ; Life Cycle Status: Active ; Responsible Provider: PETRA RUSSELL LPN; Vocabulary: ICD-9-CM Osteoarthritis Name of Problem: Osteoarthritis ; Recorder: PETRA RUSSELL LPN; Confirmation: Confirmed ; Classification: Nursing ; Code: 1231 ; Contributor System: PowerChart ; Last Updated: 03/19/2010 10:17 POTATO PEELER ; Life Cycle Date: 03/19/2010 ; Life Cycle Status: Active ; Responsible Provider: PETRA RUSSELL LPN; Vocabulary: ICD-9-CM Osteoporosis NOS Name of Problem: Osteoporosis NOS ; Recorder: PETRA RUSSELL LPN; Confirmation:Confirmed ; Classification: Nursing ; Code: 1231 ; Contributor System: PowerChart ; Last Updated: 03/19/2010 10:17 POTATO PEELER ; Life Cycle Date: 03/19/2010 ; Life Cycle Status: Active ; Responsible Provider: PETRA RUSSELL LPN; Vocabulary: ICD-9-CM Rosacea Name of Problem: Rosacea ; Onset Date: 2006 ; Recorder: PETRA RUSSELL LPN; Confirmation: Confirmed ; Classification: Nursing ; Code: 1231 ; Contributor System: PowerChart ; Last Updated: 03/19/2010 10:18 POTATO PEELER ; Life Cycle Date: 03/19/2010 ; Life Cycle Status: Active ; Responsible Provider:PETRA RUSSELL LPN; Vocabulary: ICD-9-CM TIA [Transient ischemic attack] Name of Problem: TIA [Transient ischemic attack] ; Onset Date: 2007 ; Recorder: PETRA RUSSELL LPN; Confirmation: Confirmed ; Classification: Nursing ; Code: 1231 ; Contributor System: PowerChart ; Last Updated: 03/19/2010 10:19 POTATO PEELER ; Life Cycle Date: 03/19/2010 ; Life Cycle Status: Active ; Responsible Provider: PETRA RUSSELL LPN; Vocabulary: ICD-9-CM Diagnoses(Active) Chest pain Date: 06/11/2010 22:06 CDT ; Diagnosis Type: Reason For Visit ; Confirmation: Complaint of ; Classification: Medical ; Clinical Service: Emergency medicine ; Code: PNED ; Probability: 0 ; Diagnosis Code: [id number] Triage Mode of Arrival ED: Private vehicle Track: Medical Languages: Greenlandic Pain Symptoms: Yes Vital Signs Assessed: Yes [...] extremity SpO2: 98% Oxygen Therapy: Room air EMMA MCKEON RN - 06/11/2010 22:25 CDT ED Physician Notification [...] Therapy: Nasal Cannula Oxygen Flow Rate: 4.000L/min EMMA MCKEON RN - 06/11/2010 22:32 CDT Cardiovascular Heart Rhythm: Regular Skin Color: Normal for ethnicity Skin Description: Dry Skin Temperature: Warm Cardiovascular Detailed Assessment: Yes EMMA MCKEON RN - 06/11/2010 22:32 CDT CV Detailed CV Patient Stated Symptoms: Chest pain Nail Bed Color: [place] Cardiac Rhythm: Sinus rhythm, PVC Ectopy Frequency: [...] MCKEON RN - 06/11/2010 22:32 CDT Source: [facility] [employer] Document Id: [id number] CDT!72 documented in this encounter ED Notes [...] MCKEON RN - 06/11/2010 23:52 CDT Source: [employer] Document Id: [id number] CDT!20 Conversion, Historical Provider Ser - 06/11/2010 [...] MCKEON RN - 06/11/2010 23:51 CDT Source: [employer] Document Id: [id number] CDT!7 Ralf Parker M.D. - 06/11/2010 10:20 [...] must include the following: Cholesterol, serum, total (67276), Lipoprotein, direct measurement, high density cholesterol (HDL cholesterol) (32298), Triglycerides (93402) (07230) in 2010 at 64 Years. Comments: 03/29/2010 09:40 - SHAHIDA PINEDO Hx: 65492 - LIPID PANEL Hemoglobin; glycosylated (A1C) (22331) in 2010 at 64 Years. Comments: 03/29/2010 09:40 - SHAHIDA PINEDO Hx: 48005 - GLYCATED HEMOGLOBIN Hemoglobin; glycosylated (A1C) (65865) in 2010 at 64 Years. Comments: 02/28/2010 16:47 - SHAHIDA PINEDO Hx: 78037 - GLYCATED HEMOGLOBIN Hemoglobin; glycosylated (A1C) (34864) in 2009 at 63 Years. Comments: 02/28/2010 16:47 - SHAHIDA PINEDO Hx: 42195 - GLYCATED HEMOGLOBIN Appendectomy ([id number]) in 1959 at 13 Years. History of repair of umbilical hernia ([id number]). Comments: 03/19/2010 16:22 - PETRA RUSSELL LPN Times two 1997, 2000 section ([id number]). Comments: 03/19/2010 16:23 - PETRA RUSSELL LPN Times Two 1964, 1968 Biopsy of breast ([id number]). Physical Examination Vital signs: Time 06/11/2010 22:32:00, [...] normal sinus rhythm, No ST-T changes, normal [place] & QRS intervals. Results review:Lab results : [...] prescription, Patient indicated understanding of instructions. Source: [facility] POWERCHART Document Id: [id number]} documented in this encounter Miscellaneous Notes Miscellaneous - Conversion, Historical Provider Ser - 06/11/2010 11:51 PM CDT Valuables/Belongings Valuables/Belongings Entered On: 06/11/2010 23:51 CDT Performed On: 06/11/2010 23:51 CDT by EMMA MCKEON RN Valuables/Belongings Belongings Sent Home With: with patient EMMA MCKEON RN - 06/11/2010 23:51 CDT Source: [employer] Document Id: [id number] CDT!3 Miscellaneous - Conversion, Historical Provider Ser [...] with Diagnosis Control: 15 Lynx Visit Level: 20054 Level 5 EMMA MCKEON RN - 06/11/2010 23:51 CDT Chief Complaint 8.50.02 Reason For Visit Category: Cardiorespiratory ED Chief Complaint Cardiorespiratory 8.5: Chest pain TVL Ca TVL for Facility Charge Ticket Dx: Level 5 EMMA MCKEON RN - 06/11/2010 23:51 CDT Source: [employer] Document Id: [id number] CDT!17 documented in this encounter Plan of Treatment Upcoming Encounters Date Type Specialty Care Team Description 01/22/2022 Office Visit Cardiovascular Disease Maritza Currie M.D. [address] [place] [phone] (Wo rk) documented as of this encounter Visit Diagnoses Not on filedocumented in this encounter
--- OUTSIDE RECORDS SUMMARY | 2022-01-21 13:54 | XMS_ITS | Encounter Summary ---
:1945 Author Organization [facility] Address [address] [place] [address] Care Team Providers Name Role Phone Unavailable Primary Care Provider Unavailable Encounter Details Date Type Department Care Team Description 02/14/2010 Hospital Encounter HX [facility] INPT/OBSRV Nicki Anthony, MAL, C.N.P., D.N.P. [address] [place] [address] (Wo rk) Social History Tobacco [...] Cardiovascular Disease Maritza Currie M.D. [address] [place], [place] [phone] (Wo rk) documented as of this encounter Visit Diagnoses Not on filedocumented in this encounter
--- OUTSIDE RECORDS SUMMARY | 2022-01-21 13:54 | XMS_ITS | Encounter Summary ---
:1945 Author Organization [facility] Address [address] [place] [address] Care Team Providers Name Role Phone Unavailable Primary Care Provider Unavailable Encounter Details Date Type Department Care Team Description 05/25/2010 Hospital Encounter [facility] Nicki Holt, Deana RESENDEZ.N.P., D.N.P. [address] [place], [place] [phone] (Wo rk) Social History [...] CDT Letter sent. From: NICKI HOLT DNP, CANVAS BASTER JUMPBASTING To: RAMONITA UGILLERMO LPN Sent: 05/28/2010 19:57:24 CDT ! Show up: 05/28/2010 19:57:00 CDT Subject: Results Notification Actions: Notify patient of results Due Date/Time: 05/28/2010 19:57:00 CDT Source: [facility] POWERCHART Document Id: [id number] documented in this encounter Plan of Treatment Upcoming Encounters Date Type Specialty Care Team Description 01/22/2022 Office Visit Cardiovascular Disease Maritza Currie M.D. [address] [place] [phone] (Wo rk) documented as of this encounter Visit Diagnoses Not on filedocumented in this encounter
--- OUTSIDE RECORDS SUMMARY | 2022-01-21 13:54 | XMS_ITS | Encounter Summary ---
:1945 Author Organization [facility] Address [address] [place] [address] Care Team Providers Name Role Phone Unavailable Primary Care Provider Unavailable Encounter Details Date Type Department Care Team Description 04/17/2011 Hospital Encounter [facility] Nicki Holt, MAL, Deana.N.P., D. N.P. [address] [place] [address] (Wo rk) Social History Tobacco [...] Comments Blood Pressure 120/60 04/17/2011 6:00 PM FITNESS TEACHER Pulse 72 04/17/2011 6:00 PM FITNESS TEACHER Temperature - - Respiratory Rate 14 04/17/2011 6:00 PM FITNESS TEACHER Oxygen Saturation - - Inhaled Oxygen Concentration - - Weight - - Height - - Body Mass Index - - documented in this encounter Progress Notes Nicki Holt, Maritza.N.P., C.N.P. - 04/17/2011 12:00 AM CST [id number] CHIEF COMPLAINT/REASON FOR VISIT 1. Sinus congestion. [...] of the content. Nicki Holt D.N.P., F.N.P. /felix Electronically Signed By: NICKI HOLT DNP, FNP On: 04/21/2011 07:16 PM Source: [facility] MHSDOLBEYNONRADSYS Document Id: [id number] ESS TEACHER documented in this encounter Miscellaneous Notes Miscellaneous - Nicki Holt D.N.P., C.N.P. - 04/17/2011 6:34 PM FITNESS TEACHER Ambulatory Patient Summary [address] [address] Visit Information Name: ARCHIE BAZAN Current Date: [...] No Appointments found Your Goals/Additional instructions: Source: [facility] POWERCHART Document Id: [id number] ESS TEACHER Miscellaneous - Nicki Holt, D.N.P., C.N.P. - 04/17/2011 6:34 PM FITNESS TEACHER Ambulatory Depart Summary [id number] [place] [address] Visit Information Name: ARCHIE BAZAN Visit Date: [...] clarification. Additional Information: Yes - . Source: [facility] POWERCHART Document Id: [id number] ESS TEACHER Miscellaneous - Yadira Lomeli, L.P.N. - 04/17/2011 6:00 PM CST Adult Green Belt Intake/History Adult Green Belt Intake/History Entered On: 04/17/2011 18:05 FITNESS TEACHER Performed On: 04/17/2011 18:00 FITNESS TEACHER by YADIRA LOMELI Intake Chief Complaint : sores on her tongue and ST Temperature Core : 37.1C(Converted to: 98.8DegF) Peripheral Pulse Rate : 72/min Respiratory Rate : 14/min Heart Rhythm : Regular Systolic Blood Pressure : 120mmHg Diastolic Blood Pressure : 60mmHg NIBP Mean : 80mmHg BP Location : Right upper extremity Blood Pressure Cuff Size : Regular YADIRA LOMELI 04/17/2011 18:00 FITNESS TEACHER Subjective Pain Symptoms : Yes YADIRA LOMELI 04/17/2011 18:00 FITNESS TEACHER Pain Pain Assessment Grid Pain 1 Location : Throat Intensity : 7 YADIRA LOMELI 04/17/2011 18:00 FITNESS TEACHER Dependent Habits Tobacco Use/Currently Using : No Exposure to Tobacco Smoke : Care provider denies smoking in home Smoking Status : Never smoker YADIRA LOMELI 04/17/2011 18:00 FITNESS TEACHER Caffeine Use Grid Caffeine Use : Current Type : Tea Frequency : Occasionally YADIRA LOMELI 04/17/2011 18:00 FITNESS TEACHER Recreational Drug Use Grid Drug Use : None YADIRA LOMELI 04/17/2011 18:00 FITNESS TEACHER Allergy Allergies (Active) azithromycin Estimated Onset Date: Unspecified ; Created By: PETRA RUSSELL LPN; Reaction Status: Active ; Category: Drug ; Substance: azithromycin ; Type: Allergy ; Updated By: PETRA RUSSELL LPN; Reviewed Date: 03/31/2011 8:34 FITNESS TEACHER Benicar Estimated Onset Date: Unspecified ; Created By: PETRA RUSSELL LPN; Reaction Status: Active ; Category: Drug ; Substance: Benicar ; Type: Allergy ; Updated By: PETRA RUSSELL LPN; Reviewed Date: 03/31/2011 8:34 FITNESS TEACHER Source: [facility] POWERCHART Document Id: [id number] FITNESS TEACHER!31 ESS TEACHER documented in this encounter Plan of Treatment Upcoming Encounters Date Type Specialty Care Team Description 01/22/2022 Office Visit Cardiovascular Disease Maritza Currie M.D. [address] [place], [place] [phone] (Wo rk) documented as of this encounter Visit Diagnoses Not on filedocumented in this encounter
--- OUTSIDE RECORDS SUMMARY | 2022-01-21 13:54 | XMS_ITS | Encounter Summary ---
:1945 Author Organization [facility] Address [address] [place] [address] Care Team Providers Name Role Phone Unavailable Primary Care Provider Unavailable Encounter Details Date Type Department Care Team Description 05/30/2010 Hospital Encounter [facility]X [facility] Nicki Holt, MAL, C.N.P., D. N.P. [address] [place] [address] (Wo rk) Social History Tobacco [...] Maritza.N.P., C.N.P. - 05/30/2010 12:00 AM CDT [id number] CHIEF COMPLAINT/REASON FOR VISIT Follow-up lab results. [...] HOLT DNP, FNP On: 06/03/2010 08:16 Source: [facility] MHSDOLBEYNONRADSYS Document Id: [id number] documented in this encounter Miscellaneous Notes Miscellaneous - Nicki Holt D.N.P., C.N.P. - 05/30/2010 8:21 PM CDT Results Notification Document Contains Addenda Addendum by JOHN CONCEPCION LPN on 03 June 2010 10:54:57 CDT Letter sent to patient. From: NIKCI HOLT DNP, FNP To: VITALIY DARNELL LPN Sent: 05/30/2010 20:21:39 CDT ! Show up: 05/30/2010 20:21:00 CDT Subject: Results Notification Actions: Notify patient of results Due Date/Time: 05/30/2010 20:21:00 CDT Source: [facility] [employer] Document Id: [id number] Miscellaneous - Nicki Holt, D.N.P., C.N.P. - 05/30/2010 5:24 PM CDT Ambulatory Patient Summary [facility] - [address] [address] Visit Information Name: ARCHIE BAZAN Current Date: [...] you from getting the serious disease Tetanus (Tyeshajabeba). Your Upcoming Appointments Date Time Location Reason Provider No Appointments found Your Goals/Additional instructions: Source: [facility] POWERCHART Document Id: [id number] Miscellaneous - Nicki Holt D.N.P., C.N.P. - 05/30/2010 5:24 PM CDT Ambulatory Depart Summary [facility] - [address] [address] Visit Information Name: ARCHIE BAZAN Current Date: 05/30/2010 17:24:54 Primary Care Provider: NICKI HOLT DNP, MAIL DISTRIBUTION SCHEME EXAMINER ARCHIE BAZAN has been given the following [...] to the patient and/or family, guardian/caregiver. Source: [facility] POWERCHART Document Id: [id number] Miscellaneous - Vitaliy Darnell, L.P.N. - 05/30/2010 [...] DARNELL LPN - 05/30/2010 16:30 CDT [facility] Document Id: [id number] CDT!20 Miscellaneous - Vitaliy Darnell L.P.N. 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Management Retail Intern Intake/History Adult Management Retail Intern Intake/History Entered On: 05/30/2010 16:30 CDT Performed [...] CDT Subjective Pain Symptoms: No VITALIY DARNELL DINAH - 05/30/2010 16:23 CDT Dependent Habits Tobacco Use/Currently Using: No Tobacco Use/Last 12 months: No Alcohol Use: No VITALIY DARNELL DINAH - 05/30/2010 16:23 CDT Caffeine Use Grid Caffeine Use: Current Type: Tea Frequency: Occasionally VITALIY DARNELL DINAH - 05/30/2010 16:23 CDT Allergies Allergies (Active) azithromycin Estimated Onset Date: Unspecified ; Created By: PETRA RUSSELL LPN; Reaction Status: Active ; Category: Drug ; Substance: azithromycin ; Type: Allergy ; Updated By: PETRA RUSSELL LPN; Reviewed Date: 03/19/2010 10:42 STAFF COMMAND AND CONTROL OFFICER Benicar Estimated Onset Date: Unspecified ; Created By: PETRA RUSSELL LPN; Reaction Status: Active ; Category: Drug ; Substance: Benicar ; Type: Allergy ; Updated By: PETRA RUSSELL LPN; Reviewed Date: 03/19/2010 10:40 STAFF COMMAND AND CONTROL OFFICER Source: [employer] Document Id: [id number] CDT!25 documented in this encounter Plan of Treatment Upcoming Encounters Date Type Specialty Care Team Description 01/22/2022 Office Visit Cardiovascular Disease Maritza Currie M.D. [address] [place] [phone] (Wo rk) documented as of this encounter Visit Diagnoses Not on filedocumented in this encounter
--- OUTSIDE RECORDS SUMMARY | 2022-01-21 13:54 | XMS_ITS | Encounter Summary ---
:1945 Author Organization [facility] Address [address] [place] [address] Care Team Providers Name Role Phone Unavailable [...] Cardiovascular Disease Maritza Currie M.D. [address] [place], [place] [phone] (Wo rk) documented as of this encounter Visit Diagnoses Not on filedocumented in this encounter
--- OUTSIDE RECORDS SUMMARY | 2022-01-21 13:54 | XMS_ITS | Encounter Summary ---
:1945 Author Organization [facility] Address [address] [place] [address] Care Team Providers Name Role Phone Unavailable Primary Care Provider Unavailable Encounter Details Date Type Department Care Team Description 10/04/2010 Hospital Encounter [facility] ME Nicki Anthony, AML, C.N.P., D. N.P. [address] [place] [address] (Wo rk) Social History Tobacco [...] this encounter Miscellaneous Notes Miscellaneous - Nya Wilson L.PJairoN. - 10/04/2010 9:16 AM CDT Ambulatory Vitals Height Weight Ambulatory Vitals Height Weight Entered On: 10/04/2010 9:18 CDT Performed On: 10/04/2010 9:16 CDT by NYA WILSON LPN Vitals/Ht/Wt Peripheral Pulse Rate: 80/min Systolic Blood Pressure: 120mmHg Diastolic Blood Pressure: 80mmHg NIBP Mean: 93mmHg BP Location: Left upper extremity NYA WILSON LPN - 10/04/2010 9:16 CDT Source: [facility] POWERCHART Document Id: [id number] CDT!7 documented in this encounter Plan of Treatment Upcoming Encounters Date Type Specialty Care Team Description 01/22/2022 Office Visit Cardiovascular Disease Maritza Currie M.D. [address] [place] [phone] (Wo rk) documented as of this encounter Visit Diagnoses Not on filedocumented in this encounter
--- OUTSIDE RECORDS SUMMARY | 2022-01-21 13:54 | XMS_ITS | Encounter Summary ---
:1945 Author Organization [facility] Address [address] [place] [address] Care Team Providers Name Role Phone Unavailable Primary Care Provider Unavailable Encounter Details Date Type Department Care Team Description 09/26/2010 Hospital Encounter [facility]X [facility] Nicki Anthony, MAL, C.N.P., D. N.P. [address] [place] [address] (Wo rk) Social History Tobacco [...] Disease Maritza Currie M.D. [address] [place], [place] [phone] (Wo rk) documented as of this encounter Visit Diagnoses Not on filedocumented in this encounter
--- OUTSIDE RECORDS SUMMARY | 2022-01-21 13:54 | XMS_ITS | Encounter Summary ---
:1945 Author Organization [facility] Address [address] [place] [address] Care Team Providers Name Role Phone Unavailable Primary Care Provider Unavailable Encounter Details Date Type Department Care Team Description 09/23/2010 Hospital Encounter HX [facility] ME Nicki Holt, MAL, Deana.N.P., D. N.P. [address] [place] [address] (Wo rk) Social History Tobacco [...] Maritza.N.P., C.N.P. - 09/23/2010 12:00 AM CDT [id number] CHIEF COMPLAINT/REASON FOR VISIT Lightheadedness. HISTORY OF [...] acute distress. HEAD: Normocephalic/atraumatic. PUPILS: GENE. OROPHARYNX: [place] and moist. TMs: Bilateral TMs are clear, [...] DNP, FNP On: 09/30/2010 03:36 PM Source: [facility] MHSDOLBEYNONRADSYS Document Id: [id number] documented in this encounter Miscellaneous Notes Miscellaneous [...] results Due Date/Time: 09/24/2010 17:24:00 CDT Source: [facility] POWERCHART Document Id: [id number] Electronically signed by Sae [facility] Environmental Property Assessor [id number] at 07/20/2016 11:40 PM CDT Miscellaneous - Nicki Holt D.N.P., C.N.P. - 09/23/2010 4:37 PM CDT Ambulatory Patient Summary [address] [address] Visit Information Name: ARCHIE BAZAN Current Date: 09/23/2010 16:37:11 Primary Care Provider: NICKI HOLT [facility] Your Medications Here is a list [...] No Appointments found Your Goals/Additional instructions: Source: [facility] Tarsus MedicalCHART Document Id: [id number] Electronically signed by Conversion, [facility] Environmental Property Assessor [id number] at 07/20/2016 11:40 PM CDT Miscellaneous - Nicki Holt D.N.P., C.N.P. - 09/23/2010 4:37 PM CDT Ambulatory Depart Summary [address] [address] Visit Information Name: ARCHIE BAZAN Current Date: 09/23/2010 16:37:10 Primary Care Provider: NICKI HOLT [facility], TIPPING MACHINE OPERATOR AUTOMATIC ARCHIE BAZAN has been given the following [...] to the patient and/or family, guardian/caregiver. Source: [facility] POWERCHART Document Id: [id number] Electronically signed by Conversion, [facility] Environmental Property Assessor [id number] at 07/20/2016 11:40 PM CDT Miscellaneous - Conversion, Historical Provider Ser - 09/23/2010 3:54 PM CDT Ambulatory Vitals Height Weight Ambulatory Vitals Height Weight Entered On: 09/23/2010 15:54 CDT Performed On: 09/23/2010 15:54 CDT by RAMONITA GUILLERMO LPN Vitals/Ht/Wt Systolic Blood Pressure: 152mmHg (HI) Diastolic Blood Pressure: 74mmHg NIBP Mean: 100mmHg RAMONITA GUILLERMO LPN - 09/23/2010 15:54 CDT Source: [facility]Socrative Document Id: [id number] CDT!5 Miscellaneous - Conversion, Historical Provider Ser - 09/23/2010 3:49 PM CDT Adult Siene Maker Intake/History Adult Siene Maker Intake/History Entered On: 09/23/2010 15:53 CDT Performed [...] LPN; Reviewed Date: 09/23/2010 15:49 CDT Source: [facility] Calvin Document Id: [id number] CDT!23 documented in this encounter Plan of Treatment Upcoming Encounters Date Type Specialty Care Team Description 01/22/2022 Office Visit Cardiovascular Disease Maritza Currie M.D. [address] [place] [phone] (Wo rk) documented as of this encounter Visit Diagnoses Not on filedocumented in this encounter
--- OUTSIDE RECORDS SUMMARY | 2022-01-21 13:55 | XMS_ITS | Encounter Summary ---
:1945 Author Organization [facility] Address [address] [place] [address] Care Team Providers Name Role Phone Unavailable [...] Cardiovascular Disease Maritza Currie M.D. [address] [place], [place] [phone] (Wo rk) documented as of this encounter Visit Diagnoses Not on filedocumented in this encounter
--- OUTSIDE RECORDS SUMMARY | 2022-01-21 13:55 | XMS_ITS | Encounter Summary ---
:1945 Author Organization [facility] Address [address] [place] [address] Care Team Providers Name Role Phone Unavailable Primary Care Provider Unavailable Encounter Details Date Type Department Care Team Description 01/25/2009 Hospital Encounter HX [facility] INPT/OBSRV Yady Vazquez M.D. [address] [place] [address] (Wo karthik) Social History Tobacco Use Types [...] Cardiovascular Disease Maritza Currie M.D. [address] [place], [place] [phone] (Wo rk) documented as of this encounter Visit Diagnoses Not on filedocumented in this encounter
--- OUTSIDE RECORDS SUMMARY | 2022-01-21 13:55 | XMS_ITS | Encounter Summary ---
:1945 Author Organization [facility] Address [address] [place] [address] Care Team Providers Name Role Phone Unavailable Primary Care Provider Unavailable Encounter Details Date Type Department Care Team Description 02/03/2008 Hospital Encounter HX [facility] INPT/OBSRV Jermaine Yost P.A.-C., P.A. [address] [place] [address] (Wo karthik) Social History Tobacco [...] Cardiovascular Disease Maritza Currie M.D. [address] [place], [place] [phone] (Wo rk) documented as of this encounter Visit Diagnoses Not on filedocumented in this encounter
--- OUTSIDE RECORDS SUMMARY | 2022-01-21 13:55 | XMS_ITS | Encounter Summary ---
:1945 Author Organization [facility] Address [address] [place] [address] Care Team Providers Name Role Phone Unavailable Primary Care Provider Unavailable Encounter Details Date Type Department Care Team Description 01/03/2009 Hospital Encounter [facility] INPT/OBSRV Clarke Robledo M.D. Social History [...] Cardiovascular Disease Maritza Currie M.D. [address] [place], [place] [phone] (Wo rk) documented as of this encounter Visit Diagnoses Not on filedocumented in this encounter
--- OUTSIDE RECORDS SUMMARY | 2022-01-21 13:55 | XMS_ITS | Encounter Summary ---
:1945 Author Organization [facility] Address [address] [place] [address] Care Team Providers Name Role Phone Unavailable Primary Care Provider Unavailable Encounter Details Date Type Department Care Team Description 11/28/2008 Hospital Encounter [facility] INPT/OBSRV Yady Vazquez M.D. [address] [place] [address] (Wo karthik) Social History Tobacco Use Types [...] Cardiovascular Disease Maritza Currie M.D. [address] [place], [place] [phone] (Wo rk) documented as of this encounter Visit Diagnoses Not on filedocumented in this encounter
--- OUTSIDE RECORDS SUMMARY | 2022-01-21 13:55 | XMS_ITS | Encounter Summary ---
:1945 Author Organization [facility] Address [address] [place] [address] Care Team Providers Name Role Phone Unavailable [...] Cardiovascular Disease Maritza Currie M.D. [address] [place], [place] [phone] (Wo rk) documented as of this encounter Visit Diagnoses Not on filedocumented in this encounter
--- OUTSIDE RECORDS SUMMARY | 2022-01-21 13:55 | XMS_ITS | Encounter Summary ---
:1945 Author Organization [facility] Address [address] [place] [address] Care Team Providers Name Role Phone Unavailable Primary Care Provider Unavailable Encounter Details Date Type Department Care Team Description 07/30/2007 Hospital Encounter HX [facility] INPT/OBSRV Jose Alberto Garcia M.D. [address] [place], [place] [address] (Wo rk) Social History [...] Cardiovascular Disease Maritza Currie M.D. [address] [place], [place] [phone] (Wo rk) documented as of this encounter Visit Diagnoses Not on filedocumented in this encounter
--- OUTSIDE RECORDS SUMMARY | 2022-01-21 13:55 | XMS_ITS | Encounter Summary ---
:1945 Author Organization [facility] Address [address] [place] [address] Care Team Providers Name Role Phone Unavailable Primary Care Provider Unavailable Encounter Details Date Type Department Care Team Description 07/06/2007 Hospital Encounter [facility] INPT/OBSRV Yady Vazquez M.D. [address] [place] [address] (Wo karthik) Social History Tobacco Use Types [...] Cardiovascular Disease Maritza Currie M.D. [address] [place], [place] [phone] (Wo rk) documented as of this encounter Visit Diagnoses Not on filedocumented in this encounter
--- OUTSIDE RECORDS SUMMARY | 2022-01-21 13:55 | XMS_ITS | Encounter Summary ---
:1945 Author Organization [facility] Address [address] [place] [address] Care Team Providers Name Role Phone Unavailable Primary Care Provider Unavailable Encounter Details Date Type Department Care Team Description 07/31/2009 Hospital Encounter HX [facility] INPT/OBSRV Nicki Anthony, MAL, C.N.P., D.N.P. [address] [place] [address] (Wo rk) Social History Tobacco [...] Cardiovascular Disease Maritza Currie M.D. [address] [place], [place] [phone] (Wo rk) documented as of this encounter Visit Diagnoses Not on filedocumented in this encounter
--- OUTSIDE RECORDS SUMMARY | 2022-01-21 13:55 | XMS_ITS | Encounter Summary ---
:1945 Author Organization [facility] Address [address] [place] [address] Care Team Providers Name Role Phone Unavailable Primary Care Provider Unavailable Encounter Details Date Type Department Care Team Description 02/07/2008 Hospital Encounter [facility] INPT/OBSRV Jermaine Yost P.A.-C., P.A. [address] [place] [address] (Wo karthik) Social History Tobacco [...] Cardiovascular Disease Maritza Currie M.D. [address] [place], [place] [phone] (Wo rk) documented as of this encounter Visit Diagnoses Not on filedocumented in this encounter
--- OUTSIDE RECORDS SUMMARY | 2022-01-21 13:55 | XMS_ITS | Encounter Summary ---
:1945 Author Organization [facility] Address [address] [place] [address] Care Team Providers Name Role Phone Unavailable Primary Care Provider Unavailable Encounter Details Date Type Department Care Team Description 04/24/2009 Hospital Encounter HX [facility] INPT/OBSRV Nehal Yost Jr., M.D. [address] [place] [phone] (Wo karthik) Social History Tobacco Use Types [...]
--- OUTSIDE RECORDS SUMMARY | 2022-01-21 13:55 | XMS_ITS | Encounter Summary ---
:1945 Author Organization [facility] Address [address] [place] [address] Care Team Providers Name Role Phone Unavailable Primary Care Provider Unavailable Encounter Details Date Type Department Care Team Description 02/23/2009 Hospital [facility] INTERNM[facility] Steve Noel M.D. [address] [place] [phone] (Wo rk) Social History Tobacco Use Types [...] Noel M.D. - 02/23/2009 9:10 AM CST [id number] Comment: drip box tender Chief Complaint Patient presents with Consult [...] pleasant patient. PCN/WDF/mp CC: Dr. Vazquez in [place] and Dr. Robledo. [facility] Document Id: [id number] Electronically signed by Sae [facility] Guide Escort [id number] at 07/20/2016 7:24 AM CDT documented in this encounter Plan of Treatment Upcoming Encounters Date Type Specialty Care Team Description 01/22/2022 Office Visit Cardiovascular Disease Maritza Currie M.D. [address] [place] [phone] (Wo rk) documented as of this encounter Visit Diagnoses Not on filedocumented in this encounter
--- OUTSIDE RECORDS SUMMARY | 2022-01-21 13:55 | XMS_ITS | Encounter Summary ---
:1945 Author Organization [facility] Address [address] [place] [address] Care Team Providers Name Role Phone Unavailable Primary Care Provider Unavailable Encounter Details Date Type Department Care Team Description 03/03/2008 Hospital Encounter HX [facility] INPT/OBSRV Jermaine Yost P.A.-C., P.A. [address] [place] [address] (Wo karthik) Social History Tobacco [...] Cardiovascular Disease Maritza Currie M.D. [address] [place], [place] [phone] (Wo rk) documented as of this encounter Visit Diagnoses Not on filedocumented in this encounter
--- OUTSIDE RECORDS SUMMARY | 2022-01-21 13:55 | XMS_ITS | Encounter Summary ---
:1945 Author Organization [facility] Address [address] [place] [address] Care Team Providers Name Role Phone Unavailable Primary Care Provider Unavailable Encounter Details Date Type Department Care Team Description 10/30/2008 Hospital Encounter HX [facility] INPT/OBSRV Jose Alberto Garcia M.D. [address] [place], [place] [address] (Wo rk) Social History [...] Cardiovascular Disease Maritza Currie M.D. [address] [place], [place] [phone] (Wo rk) documented as of this encounter Visit Diagnoses Not on filedocumented in this encounter
--- OUTSIDE RECORDS SUMMARY | 2022-01-21 13:55 | XMS_ITS | Encounter Summary ---
:1945 Author Organization [facility] Address [address] [place] [address] Care Team Providers Name Role Phone Unavailable Primary Care Provider Unavailable Encounter Details Date Type Department Care Team Description 01/03/2009 Hospital Encounter [facility] INPT/OBSRV Yady Vazquez M.D. [address] [place] [address] (Wo karthik) Social History Tobacco Use Types [...] Cardiovascular Disease Maritza Currie M.D. [address] [place], [place] [phone] (Wo rk) documented as of this encounter Visit Diagnoses Not on filedocumented in this encounter
--- OUTSIDE RECORDS SUMMARY | 2022-01-21 13:55 | XMS_ITS | Encounter Summary ---
:1945 Author Organization [facility] Address [address] [place] [address] Care Team Providers Name Role Phone Unavailable Primary Care Provider Unavailable Encounter Details Date Type Department Care Team Description 08/17/2007 Hospital Encounter [facility] INPT/OBSRV Yady Vazquez M.D. [address] [place] [address] (Wo karthik) Social History Tobacco Use Types [...] Cardiovascular Disease Maritza Currie M.D. [address] [place], [place] [phone] (Wo rk) documented as of this encounter Visit Diagnoses Not on filedocumented in this encounter
--- OUTSIDE RECORDS SUMMARY | 2022-01-21 13:55 | XMS_ITS | Encounter Summary ---
:1945 Author Organization [facility] Address [address] [place] [address] Care Team Providers Name Role Phone Unavailable Primary Care Provider Unavailable Encounter Details Date Type Department Care Team Description 04/20/2009 Hospital Encounter HX [facility] INPT/OBSRV Jose Alberto Garcia M.D. [address] [place], [place] [address] (Wo rk) Social History [...] Cardiovascular Disease Maritza Currie M.D. [address] [place], [place] [phone] (Wo rk) documented as of this encounter Visit Diagnoses Not on filedocumented in this encounter
--- OUTSIDE RECORDS SUMMARY | 2022-01-21 13:55 | XMS_ITS | Encounter Summary ---
:1945 Author Organization [facility] Address [address] [place] [address] Care Team Providers Name Role Phone Unavailable Primary Care Provider Unavailable Encounter Details Date Type Department Care Team Description 12/20/2008 Hospital Encounter [facility] INPT/OBSRV Clarke Robledo M.D. Social History Tobacco [...] Cardiovascular Disease Maritza Currie M.D. [address] [place], [place] [phone] (Wo rk) documented as of this encounter Visit Diagnoses Not on filedocumented in this encounter
--- OUTSIDE RECORDS SUMMARY | 2022-01-21 13:55 | XMS_ITS | Encounter Summary ---
:1945 Author Organization [facility] Address [address] [place] [address] Care Team Providers Name Role Phone Unavailable Primary Care Provider Unavailable Encounter Details Date Type Department Care Team Description 10/08/[address] [facility] INPT/OBSRV Nicki Anthony, MAL, C.N.P., D.N.P. [address] [place] [address] (Wo rk) Social History Tobacco [...] Cardiovascular Disease Maritza Currie M.D. [address] [place], [place] [phone] (Wo rk) documented as of this encounter Visit Diagnoses Not on filedocumented in this encounter
--- OUTSIDE RECORDS SUMMARY | 2022-01-21 13:55 | XMS_ITS | Encounter Summary ---
:1945 Author Organization [facility] Address [address] [place] [address] Care Team Providers Name Role Phone Unavailable Primary Care Provider Unavailable Encounter Details Date Type Department Care Team Description 04/20/2008 Hospital Encounter H[facility] INPT/OBSRV Yady Vazquez M.D. [address] [place] [address] (Wo karthik) Social History Tobacco Use Types [...] Cardiovascular Disease Maritza Currie M.D. [address] [place], [place] [phone] (Wo rk) documented as of this encounter Visit Diagnoses Not on filedocumented in this encounter
--- OUTSIDE RECORDS SUMMARY | 2022-01-21 13:56 | XMS_ITS | Encounter Summary ---
:1945 Author Organization [facility] Address [address] [place] [address] Care Team Providers Name Role Phone Unavailable Primary Care Provider Unavailable Encounter Details Date Type Department Care Team Description 05/05/2007 Hospital Encounter [facility] INPT/OBSRV Yady Vazquez M.D. [address] [place] [address] (Wo karthik) Social History Tobacco Use Types [...] [address] [place], [place] [phone] (Wo rk) documented as of this encounter Visit Diagnoses Not on filedocumented in this encounter
--- OUTSIDE RECORDS SUMMARY | 2022-01-21 13:56 | XMS_ITS | Encounter Summary ---
:1945 Author Organization [facility] Address [address] [place] [address] Care Team Providers Name Role Phone Unavailable Primary Care Provider Unavailable Encounter Details Date Type Department Care Team Description 05/21/2001 Hospital Encounter [facility] SURGCLINI Dian Bianchi, [place] [address] [place], [place] [address] (Wo rk) Social History [...] Provider Ser - 05/21/2001 12:00 AM CST [id number] >> PAWEL SCHMITT [facility] May 24, 2001 3:08 PM >> CALL [...] with me prn. Miguelina Bianchi D.O./kelly Source: [facility] RWHXTRANSXSYS Document Id: [id number] documented in this encounter Plan of Treatment Upcoming Encounters Date Type Specialty Care Team Description 01/22/2022 Office Visit Cardiovascular Disease Maritza Currie M.D. [address] [place] [phone] (Wo rk) documented as of this encounter Visit Diagnoses Not on filedocumented in this encounter
--- OUTSIDE RECORDS SUMMARY | 2022-01-21 13:56 | XMS_ITS | Encounter Summary ---
:1945 Author Organization [facility] Address [address] [place] [address] Care Team Providers Name Role Phone Unavailable Primary Care Provider Unavailable Encounter Details Date Type Department Care Team Description 04/01/2004 Hospital Encounter [facility] XRAY Provider, Histori joao Social History [...] Cardiovascular Disease Maritza Currie M.D. [address] [place], [place] [phone] (Wo rk) documented as of this encounter Visit Diagnoses Not on filedocumented in this encounter
--- OUTSIDE RECORDS SUMMARY | 2022-01-21 13:56 | XMS_ITS | Encounter Summary ---
:1945 Author Organization [facility] Address [address] [place] [address] Care Team Providers Name Role Phone Unavailable Primary Care Provider Unavailable Encounter Details Date Type Department Care Team Description 04/21/2007 Hospital Encounter [facility] IN[facility]OBSRV Yady Vazquez M.D. [address] [place] [address] (Wo karthik) Social History Tobacco Use Types [...] Cardiovascular Disease Maritza Currie M.D. [address] [place], [place] [phone] (Wo rk) documented as of this encounter Visit Diagnoses Not on filedocumented in this encounter
--- OUTSIDE RECORDS SUMMARY | 2022-01-21 13:56 | XMS_ITS | Encounter Summary ---
:1945 Author Organization [facility] Address [address] [place] [address] Care Team Providers Name Role Phone Unavailable Primary Care Provider Unavailable Encounter Details Date Type Department Care Team Description 07/13/[address] [facility] Dian Bianchi, [place] [address] [place], [place] [address] (Wo rk) Social History [...] Provider Ser - 07/13/2001 11:45 AM CDT [id number] Addended by: PAWEL SCHMITT on: 07/14/2001,9:57 AM Comment: transcriptionModules accepted: Prog ress NotesThis office note has been dictated.SUBJECTIVE: Ms. Adams is here for f/u and results of a CT scan done in [place]. OBJECTIVE: She previously had an incisional hernia repair with me blas several months ago and has had some [...] prn. Miguelina Bianchi D.O./PLSD: 07/13/2001T: 07/14/2001 Source: [facility] RWHXTRANSXSYS Document Id: [id number] documented in this encounter Plan of Treatment Upcoming Encounters Date Type Specialty Care Team Description 01/22/2022 Office Visit Cardiovascular Disease Maritza Currie M.D. [address] [place] [phone] (Wo rk) documented as of this encounter Visit Diagnoses Not on filedocumented in this encounter
--- OUTSIDE RECORDS SUMMARY | 2022-01-21 13:56 | XMS_ITS | Encounter Summary ---
:1945 Author Organization [facility] Address [address] [place] [address] Care Team Providers Name Role Phone Unavailable [...] Provider Ser - 07/07/2001 12:00 AM CDT [id number] *-*-*-*-* SEE SCANNED REPORT *-*-*-*-* Source: [facility] RWHXTRANSXSYS Document Id: [id number] documented in this encounter Plan of Treatment Upcoming Encounters Date Type Specialty Care Team Description 01/22/2022 Office Visit Cardiovascular Disease Maritza Currie M.D. [address] [place], [place] [phone] (Wo rk) documented as of this encounter Visit Diagnoses Not on filedocumented in this encounter
--- OUTSIDE RECORDS SUMMARY | 2022-01-21 13:56 | XMS_ITS | Encounter Summary ---
:1945 Author Organization [facility] Address [address] [place] [address] Care Team Providers Name Role Phone Unavailable Primary Care Provider Unavailable Encounter Details Date Type Department Care Team Description 04/30/2007 Hospital Encounter [facility] INPT/OBSRV Yady Vazquez M.D. [address] [place] [address] (Wo karthik) Social History Tobacco Use Types [...] Cardiovascular Disease Maritza Currie M.D. [address] [place], [place] [phone] (Wo rk) documented as of this encounter Visit Diagnoses Not on filedocumented in this encounter
--- OUTSIDE RECORDS SUMMARY | 2022-01-21 13:56 | XMS_ITS | Encounter Summary ---
:1945 Author Organization [facility] Address [address] [place] [address] Care Team Providers Name Role Phone Unavailable Primary Care Provider Unavailable Encounter Details Date Type Department Care Team Description 04/17/2007 Hospital Encounter [facility] INPT/OBSRV Yady Vazquez M.D. [address] [place] [address] (Wo karthik) Social History Tobacco Use Types [...] Cardiovascular Disease Maritza Currie M.D. [address] [place], [place] [phone] (Wo rk) documented as of this encounter Visit Diagnoses Not on filedocumented in this encounter
--- OUTSIDE RECORDS SUMMARY | 2022-01-21 13:56 | XMS_ITS | Encounter Summary ---
:1945 Author Organization [facility] Address [address] [place] [address] Care Team Providers Name Role Phone Unavailable Primary Care Provider Unavailable Encounter Details Date Type Department Care Team Description 04/20/2007 Hospital Encounter [facility] INPT/OBSRV Yady Vazquez M.D. [address] [place] [address] (Wo karthik) Social History Tobacco Use Types [...] Cardiovascular Disease Maritza Currie M.D. [address] [place], [place] [phone] (Wo rk) documented as of this encounter Visit Diagnoses Not on filedocumented in this encounter
--- OUTSIDE RECORDS SUMMARY | 2022-01-21 13:56 | XMS_ITS | Encounter Summary ---
:1945 Author Organization [facility] Address [address] [place] [address] Care Team Providers Name Role Phone Unavailable [...] Provider Ser - 06/09/2001 12:00 AM CDT [id number] *-*-*-*-* SEE SCANNED REPORT *-*-*-*-* Source: [facility] RWHXTRANSXSYS Document Id: [id number] documented in this encounter Plan of Treatment Upcoming Encounters Date Type Specialty Care Team Description 01/22/2022 Office Visit Cardiovascular Disease Maritza Currie M.D. [address] [place], [place] [phone] (Wo rk) documented as of this encounter Visit Diagnoses Not on filedocumented in this encounter
--- OUTSIDE RECORDS SUMMARY | 2022-01-21 13:56 | XMS_ITS | Encounter Summary ---
:1945 Author Organization [facility] Address [address] [place] [address] Care Team Providers Name Role Phone Unavailable [...] Provider Ser - 07/06/2002 6:25 AM CDT [id number] Addended by: DANIEL LOPEZ on: 07/26/2002,4:19 PM Comment: JAMES PIERRE =BLEEModules accepted: Prog ress Notes Source: [facility] RWHXTRANSXSYS Document Id: [id number] documented in this encounter Plan of Treatment Upcoming Encounters Date Type Specialty Care Team Description 01/22/2022 Office Visit Cardiovascular Disease Maritza Currie M.D. [address] [place], [place] [phone] (Wo rk) documented as of this encounter Visit Diagnoses Not on filedocumented in this encounter
--- OUTSIDE RECORDS SUMMARY | 2022-01-21 13:56 | XMS_ITS | Encounter Summary ---
:1945 Author Organization [facility] Address [address] [place] [address] Care Team Providers Name Role Phone Unavailable Primary Care Provider Unavailable Encounter Details Date Type Department Care Team Description 04/17/2007 Hospital Encounter [facility] INPT/OBSRV Yady Vazquez M.D. [address] [place] [address] (Wo karthik) Social History Tobacco Use Types [...] Cardiovascular Disease Maritza Currie M.D. [address] [place], [place] [phone] (Wo rk) documented as of this encounter Visit Diagnoses Not on filedocumented in this encounter
--- OUTSIDE RECORDS SUMMARY | 2022-01-21 13:56 | XMS_ITS | Encounter Summary ---
:1945 Author Organization [facility] Address [address] [place] [address] Care Team Providers Name Role Phone Unavailable [...] Cardiovascular Disease Maritza Currie M.D. [address] [place], [place] [phone] (Wo rk) documented as of this encounter Visit Diagnoses Not on filedocumented in this encounter
--- OUTSIDE RECORDS SUMMARY | 2022-01-21 13:56 | XMS_ITS | Encounter Summary ---
:1945 Author Organization [facility] Address [address] [place] [address] Care Team Providers Name Role Phone Unavailable Primary Care Provider Unavailable Encounter Details Date Type Department Care Team Description 04/26/2007 Hospital Encounter HX [facility] INPT/OBSRV Yady Vazquez M.D. [address] [place] [address] (Wo karthik) Social History Tobacco Use Types [...] Cardiovascular Disease Maritza Currie M.D. [address] [place], [place] [phone] (Wo rk) documented as of this encounter Visit Diagnoses Not on filedocumented in this encounter
--- OUTSIDE RECORDS SUMMARY | 2022-01-21 13:56 | XMS_ITS | Encounter Summary ---
:1945 Author Organization [facility] Address [address] [place] [address] Care Team Providers Name Role Phone Unavailable [...] Provider Ser - 07/14/2002 12:00 AM CDT [id number] Marcial Adams [address] [place] [address] July 14, 2002 Dear Marcial Adams The biopsy results from your recent colonoscopy exam on July 06, 2002, at [facility] Endoscopy Department show the following: The tissue samples show benign tissue.You should have another colonoscopy in 5-[address] recommended [address] Dr[address] Robledo. If you have any questions/concerns regarding this, please call us at [phone]. Thank you for letting us serve you. Sincerely, Paola Howe Source: [facility] RWHXTRANSXRTFSYS Document Id: [id number] documented in this encounter Plan of Treatment Upcoming Encounters Date Type Specialty Care Team Description 01/22/2022 Office Visit Cardiovascular Disease Maritza Currie M.D. [address] [place] [phone] (Wo rk) documented as of this encounter Visit Diagnoses Not on filedocumented in this encounter
--- OUTSIDE RECORDS SUMMARY | 2022-01-21 13:56 | XMS_ITS | Encounter Summary ---
:1945 Author Organization [facility] Address [address] [place] [address] Care Team Providers Name Role Phone Unavailable Primary Care Provider Unavailable Encounter Details Date Type Department Care Team Description 09/14/2002 Hospital En[facility] Terri Victor M.D. [address] [place], [place] [phone] (Wo rk) Social History [...] Provider Ser - 09/14/2002 8:15 AM CDT [id number] Addended by: NICANOR SMALL on: 09/20/2002,10:31 AM [...] 1-[address] Cruz in [facility]- he has checked her pressur es in her eye x 2, has done a visual filed and a dilated exam and didn't find anything. The patient i s very concerned about it.Dorina Bucio, RNPatijim Active Problem List: OSTEOPOROSIS NEC[733.09] PAST MEDICAL [...] be indicated to rule out mass.Zach Novoa M.D./Alok: 09/14/2002T: 09/19/2002 Source: [facility] RWHXTRANSXSYS Document Id: [id number] documented in this encounter Miscellaneous Notes Miscellaneous - Conversion, Historical Provider Ser - 09/14/2002 8:15 AM CDT [id number] September 14, 2002 [place] [address] RE: Marcial Adams EMR#[id number] Dear Lincoln: Thank you for having me [...] Novoa M.D. Department of Ophthalmology ANOOP/brittni Source: [facility] RWHXTRANSXRTFSYS Document Id: [id number] documented in this encounter Plan of Treatment Upcoming Encounters Date Type Specialty Care Team Description 01/22/2022 Office Visit Cardiovascular Disease Maritza Currie M.D. [address] [place], [place] [phone] (Wo rk) documented as of this encounter Visit Diagnoses Not on filedocumented in this encounter
--- OUTSIDE RECORDS SUMMARY | 2022-01-21 13:56 | XMS_ITS | Encounter Summary ---
:1945 Author Organization [facility] Address [address] [place] [address] Care Team Providers Name Role Phone Unavailable [...] Cardiovascular Disease Maritza Currie M.D. [address] [place], [place] [phone] (Wo rk) documented as of this encounter Visit Diagnoses Not on filedocumented in this encounter
--- OUTSIDE RECORDS SUMMARY | 2022-01-21 13:56 | XMS_ITS | Encounter Summary ---
:1945 Author Organization [facility] Address [address] [place] [address] Care Team Providers Name Role Phone Unavailable [...] Cardiovascular Disease Maritza Currie M.D. [address] [place], [place] [phone] (Wo rk) documented as of this encounter Visit Diagnoses Not on filedocumented in this encounter
--- OUTSIDE RECORDS SUMMARY | 2022-01-21 13:57 | XMS_ITS | Encounter Summary ---
:[address] 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 [address] [place], [place] [phone] (Wo rk) documented as of this encounter Visit Diagnoses Not on filedocumented in this encounter
--- OUTSIDE RECORDS SUMMARY | 2022-01-21 13:57 | XMS_ITS | Encounter Summary ---
:1945 Author Organization [facility] Address [address] [place] [address] Care Team Providers Name Role Phone Unavailable [...] Cardiovascular Disease Maritza Currie M.D. [address] [place], [place] [phone] (Wo rk) documented as of this encounter Visit Diagnoses Not on filedocumented in this encounter
--- OUTSIDE RECORDS SUMMARY | 2022-01-21 13:57 | XMS_ITS | Encounter Summary ---
:1945 Author Organization [facility] Address [address] [place] [address] Care Team Providers Name Role Phone Unavailable [...] Historical Provider Ser - 03/10/2001 12:00 AM CUT OFF SAW GRADER [id number] *-*-*-*-* SEE SCANNED REPORT *-*-*-*-* Source: [facility] RWHXTRANSXSYS Document Id: [id number] documented in this encounter Plan of Treatment Upcoming Encounters Date Type Specialty Care Team Description 01/22/2022 Office Visit Cardiovascular Disease Maritza Currie M.D. [address] [place], [place] [phone] (Wo rk) documented as of this encounter Visit Diagnoses Not on filedocumented in this encounter
--- OUTSIDE RECORDS SUMMARY | 2022-01-21 13:57 | XMS_ITS | Encounter Summary ---
:1945 Author Organization [facility] Address [address] [place] [address] Care Team Providers Name Role Phone Unavailable Primary Care Provider Unavailable Encounter Details Date Type Department Care Team Description 03/18/2001 Hospital Encounter [facility] Dian Bianchi D.O. [address] [place], [place] [address] (Wo rk) Social History [...] Provider Ser - 03/18/2001 3:00 PM CST [id number] Addended by: PAWEL SCHMITT on: 03/31/2001,9:50 AM Comment: tranxModules accepted: Progress Not esThis office note has been dictated.Marcial Adams [id number] is a patient well-known to me who I have seen in [place] in the past. She is a 55 [...] general anesthetic.30 minutes of time was spent auto travel counselor ing this patient. Marlon Bianchi D.O./plsD: 03/18/01T: 03/29/01 [facility] Document Id: [id number] documented in this encounter Plan of Treatment Upcoming Encounters Date Type Specialty Care Team Description 01/22/2022 Office Visit Cardiovascular Disease Maritza Currie M.D. [address] [place], [place] [phone] (Wo rk) documented as of this encounter Visit Diagnoses Not on filedocumented in this encounter
--- OUTSIDE RECORDS SUMMARY | 2022-01-21 13:57 | XMS_ITS | Encounter Summary ---
:1945 Author Organization [facility] Address [address] [place] [address] Care Team Providers Name Role Phone Unavailable Primary Care Provider Unavailable Encounter Details Date Type Department Care Team Description 04/22/2001 Hospital Encounter [facility] Dian Bianchi, [place] [address] [place], [place] [address] (Wo rk) Social History [...] Provider Ser - 04/22/2001 10:00 AM CST [id number] Addended by: PAWEL SCHMITT on: 04/23/2001,3:12 PM [...] striction. Miguelina Bianchi D.O./plsD: 04/22/2001T: 04/23/2001 Source: [facility] RWHXTRANSXSYS Document Id: [id number] documented in this encounter Plan of Treatment Upcoming Encounters Date Type Specialty Care Team Description 01/22/2022 Office Visit Cardiovascular Disease Maritza Currie M.D. [address] [place] [phone] (Wo rk) documented as of this encounter Visit Diagnoses Not on filedocumented in this encounter
--- OUTSIDE RECORDS SUMMARY | 2022-01-21 13:57 | XMS_ITS | Encounter Summary ---
:1945 Author Organization [facility] Address [address] [place] [address] Care Team Providers Name Role Phone Unavailable [...] Historical Provider Ser - 03/22/2001 12:00 AM FRONT WINDOW CASHIER [id number] Abstracted by SANTI Special Population Paraprofessional on 03/24/[address] [id number] Bianchi D.O.Room No. SSS [id number], LURENE : 3-40-45ECLAHLODP/OPERATIVE REPORTPREOPE RATIVE DIAGNOSIS:Recurrent incisional hernia.POSTOPERATIVE DIAGNOSIS:Recurrent incisional [...] the abdominal cavity w as entered. The Zuinlda was introduced into the abdominal cavity and [...] procedure well and there are no apparent complications.LLT:[id number]. 2-4-0 2 Dustin Bianchi D.O. Source: [facility] RWHXTRANSXSYS Document Id: [id number] documented in this encounter Plan of Treatment Upcoming Encounters Date Type Specialty Care Team Description 01/22/2022 Office Visit Cardiovascular Disease Maritza Currie M.D. [address] [place] [phone] (Wo rk) documented as of this encounter Visit Diagnoses Not on filedocumented in this encounter
--- OUTSIDE RECORDS SUMMARY | 2022-01-21 13:57 | XMS_ITS | Encounter Summary ---
:1945 Author Organization [facility] Address [address] [place] [address] Care Team Providers Name Role Phone Unavailable Primary Care Provider Unavailable Encounter Details Date Type Department Care Team Description 03/22/2001 - Hospital Encounter HX NO MAPPING Miguelina Bianchi, 03/23/2001 DJairoOJairo Viv[address] [place], [place] [address] (Wo rk) Social History [...] Cardiovascular Disease Maritza Currie M.D. [address] [place], [place] [phone] (Wo rk) documented as of this encounter Visit Diagnoses Not on filedocumented in this encounter
--- OUTSIDE RECORDS SUMMARY | 2022-01-21 13:57 | XMS_ITS | Encounter Summary ---
:1945 Author Organization [facility] Address [address] [place] [address] Care Team Providers Name Role Phone Unavailable Primary Care Provider Unavailable Encounter Details Date Type Department Care Team Description 05/21/2001 Hospital [facility] [address] [place], [place] [address] (Wo rk) Social History [...] Provider Ser - 05/21/2001 12:00 AM CST [id number] >> JUDITH FRIAS Fri May 21, 2001 5:27 PM CALL INITIATED. Contact: This office note has been dictated. [facility] Document Id: [id number] documented in this encounter Plan of Treatment Upcoming Encounters Date Type Specialty Care Team Description 01/22/2022 Office Visit Cardiovascular Disease Maritza Currie M.D. [address] [place], [place] [phone] (Wo rk) documented as of this encounter Visit Diagnoses Not on filedocumented in this encounter
--- OUTSIDE RECORDS SUMMARY | 2022-01-21 13:57 | XMS_ITS | Encounter Summary ---
:1945 Author Organization [facility] Address [address] [place] [address] Care Team Providers Name Role Phone Unavailable Primary Care Provider Unavailable Encounter Details Date Type Department Care Team Description 05/07/2001 Hospital En[facility] D.[facility]. [address] [place], [place] [address] (Wo rk) Social History [...] Provider Ser - 05/07/2001 3:00 PM CST [id number] Marcial is here for her 4 week [...] with meals. F/U in one month. Source: [facility] Document Id: [id number] documented in this encounter Plan of Treatment Upcoming Encounters Date Type Specialty Care Team Description 01/22/2022 Office Visit Cardiovascular Disease Maritza Currie M.D. [address] [place] [phone] (Wo rk) documented as of this encounter Visit Diagnoses Not on filedocumented in this encounter
--- OUTSIDE RECORDS SUMMARY | 2022-01-21 13:57 | XMS_ITS | Encounter Summary ---
:1945 Author Organization [facility] Address [address] [place] [address] Care Team Providers Name Role Phone Unavailable Primary Care Provider Unavailable Encounter Details Date Type Department Care Team Description 04/08/2001 Hospital Encounter [facility] SURG[facility] D.O. [address] [place], [place] [address] (Wo rk) Social History [...] Provider Ser - 04/08/2001 9:00 AM CST [id number] Marcial is here s/p laprascopic repair of [...] to work at ann[employer] t time. [facility] Document Id: [id number] documented in this encounter Plan of Treatment Upcoming Encounters Date Type Specialty Care Team Description 01/22/2022 Office Visit Cardiovascular Disease Maritza Currie M.D. [address] [place] [phone] (Wo rk) documented as of this encounter Visit Diagnoses Not on filedocumented in this encounter
--- OUTSIDE RECORDS SUMMARY | 2022-01-21 13:59 | XMS_ITS | Encounter Summary ---
:1945 Author Organization [facility] Address [address] [place] [address] Care Team Providers Name Role Phone Adriane Patel Ronak FAST FOOD RESTAURANT MANAGER, GAS METER INSTALLER Primary Care Provider Reason for Visit Reason Comments Med Refill Encounter Details Date Type Department Care Team Description 11/23/2021 Refill [place] Corrine Vazquez, [facility], [address] [facility] [address] [place] unspecified type [place], [place] [address] [place] [address] [place] [address] Social History Tobacco Use Types Packs/Day Years Used Date Smoking Tobacco: Never Smokeless Tobacco: Never Alcohol Use Standard Drinks/Week Comments No 0 [...] drinks on one occasion? No t asked Social Isolation Answer Date Recorded In [...] Domitila, Management (02/05/2021 Abbie Murray, 11:19 AM MACHINE GRAINER) RN Note: Formatting of this note is differe nt from the original. Routine Health Management Care Team Patient Care Team: Corrine Vazquez MD as PCP - General (F amily Medicine) Yossi Potts, RN as Registered Nurse (Diabetes Education) Abbie Ramesh, RN as Casing Worker Future Scheduled Appointments No future appointments. [...] 11:17 AM No Abbie Ramesh, RN MACHINE GRAINER) Note: Formatting of this note is differe [...] No Abbie Ramesh, RN 11:14 AM MACHINE GRAINER) Note: Formatting of this note is differe [...] type documented in this encounter Care Teams Scooping Machine Tender Relationship Specialty Start Date End Date Adriane Patel APRN, GAS METER INSTALLER PCP - General Family Medicine 08/20/[address] [place] [address] documented as of this encounter
--- OUTSIDE RECORDS SUMMARY | 2022-01-21 13:59 | XMS_ITS | Encounter Summary ---
:1945 Author Organization [facility] Address [address] [place] [address] Care Team Providers Name Role Phone Corrine [...] Vazquez MD Care Coordination [address] [facility] [address] [place] [address] [place], [place] [phone] Referral ID Status Reason Start Expiration Visits Visits Date Date Requested Authorized [id number] Authorized Specialty 02/16/2021 03/18/2022 99 99 Services Required Encounter Details Date Type Department Care Team Description 05/09/2021 Patient Outreach Care Coordination Abbie Ramesh [facility] and [address] [place] [address] ERA [place] [address]25 [facility] (Primary Dx) [phone] [place] [phone] Social History Tobacco Use Types Packs/Day Years [...] 12/23/2018 organizations such as caodaism groups, unions, [employer] or athletic groups, or school groups? [...] Peter Monzon (02/05/2021 Abbie Murray, 11:19 AM TRACK RIDER) RN Note: Formatting of this note is differe nt from the original. Routine Health Management Care Team Patient Care Team: Corrine Vazquez MD as PCP - General ([facility]) Yossi Potts, RN as Registered Nurse (Diabetes Education) Abbie Ramesh RN as Index Editor Future Scheduled Appointments No future appointments. [...] (02/05/2021 11:17 AM No Abbie Ramesh, RN TRACK RIDER) Note: Formatting of this note is differe [...] (02/05/2021 No Abbie Ramesh, RN 11:14 AM TRACK RIDER) Note: Formatting of this note is differe [...] imary documented in this encounter Care Teams Leasing Agent Relationship Specialty Start Date End Date Corrine Vazquez MD PCP - General Family Medicine 07/07/19 08/19/[address] [place] [address] documented as of this encounter
--- OUTSIDE RECORDS SUMMARY | 2022-01-21 13:59 | XMS_ITS | Encounter Summary ---
:1945 Author Organization [facility] Address [address] [place] [address] Care Team Providers Name Role Phone Corrine Vazquez MD Primary Care Provider Reason for Visit Consultation (Routine) - Authorized Specialty Diagnoses / Procedures Referred By Contact Refer red To Contact Family Medicine Diagnoses Enrolled in chronic care management Essential hypertension Type 2 diabetes mellitus with other specified complication, with long-term current use of insulin (HCC) Mixed hyperlipidemia Corrine Vazquez MD Care Coordination [address] [place] [phone] Referral ID Status Reason Start Expiration Visits Visits Date Date Requested Authorized [id number] Authorized Specialty 02/16/2021 03/18/2022 99 99 Services Required Encounter Details Date Type Department Care Team Description 06/19/2021 Patient Outreach SE Care Coordination Abbie Ramesh J [address] [place] [address] [place] [address] [place] [phone] Social History Tobacco Use Types Packs/Day Years [...] 12/23/2018 organizations such as yarsanism groups, unions, [email or web address] or athletic groups, or school groups? How [...] Peter Ramesh (02/05/2021 Abbie Murray, 11:19 AM SALES PROFESSIONAL) RN Note: Formatting of this note is differe nt from the original. Routine Health Management Care Team Patient Care Team: Corrine Vazquez MD as PCP - General ([facility]) Yossi Potts, RN as Registered Nurse (Diabetes Education) Abbie Ramesh RN as Trailer Body Assembler Future Scheduled Appointments No future appointments. [...] (02/05/2021 11:17 AM No Abbie Ramesh, RN SALES PROFESSIONAL) Note: Formatting of this note [...] (02/05/2021 No Abbie Ramesh, RN 11:14 AM SALES PROFESSIONAL) Note: Formatting of this note is differe nt from the original. Cardiovascular Management Essential hypertension Chronic coronary artery disease Managed by (PCP; Cardiology; [facility]) Dr. Ronak lozoya MD [...] on filedocumented in this encounter Care Teams Summer Sessions Director Relationship Specialty Start Date End Date Corrine Vazquez MD PCP - General Family Medicine 07/07/19 08/19/[address] [place] [address] documented as of this encounter
--- OUTSIDE RECORDS SUMMARY | 2022-01-21 13:59 | XMS_ITS | Encounter Summary ---
:1945 Author Organization [facility] Address [address] [place] [address] Care Team Providers Name Role Phone Adriane Patel Ronak RUDDN, INVERFORM MACHINE OPERATOR Primary Care Provider [phone] Reason for Visit Consultation (Routine) - Authorized Specialty Diagnoses / Procedures Referred By Contact Refer red To Contact Family Medicine Diagnoses Enrolled in chronic care management Essential hypertension Type 2 diabetes mellitus with other specified complication, with long-term current use of insulin (HCC) Mixed hyperlipidemia Corrine Vazquez MD Care Coordination [address] [place] [address] [place], [place] [id number] Referral ID Status Reason Start Expiration Visits Visits Date Date Requested Authorized [id number] Authorized Specialty 02/16/2021 03/18/2022 99 99 Services Required Encounter Details Date Type Department Care Team Description 07/31/2021 Patient Outreach SE Care Coordination Abbie Ramesh [facility] and [address] [place] [address] [place] [address] [facility] (Primary Dx) [phone] [place] [address] Social History Tobacco Use Types [...] 12/23/2018 organizations such as rastafari groups, unions, [place] or athletic groups, or school groups? How [...] states she was given Prednisone by her Pile Header for a flare. She states she is concerned her blood sugars are running higher. Took first dose this morning. States this AM she was 131, lunch was 246, and was 331 this afternoon after lunch. Patient states her doctor is at the [facility] and follows with Suresh Patel. Instructed patient to follow up with her PCP as nurse cannot adjust insulin doses and patient does not follow with [facility] any longer. Marcial verbalizes understanding. 8 minutes spent with patient 1 minute spent in chart review Abbie Ramesh RN - 07/31/2021 10:40 AM CDT Care Coordination Manager Entry: Abbie Ramesh RN Date: 08/20/2021 10:48 AM ?? Discontinued patient from [facility] since she no longer gets her Primary Care at [facility]. documented in this encounter Plan of Treatment Not on filedocumented as of this encounter Goals Goal Patient Goal Associated Recent Patient-Stated? Author Type Problems Progress Routine Health General No change Hailee Ramesh Management (02/05/2021 Abbie Murray, 11:19 AM MARKETING SERVICES MANAGER) RN Note: Formatting of this note is differe nt from the original. Routine Health Management Care Team Patient Care Team: Corrine Vazquez MD as PCP - General ([facility]) Yossi Potts, RN as Registered Nurse (Diabetes Education) Abbie Ramesh RN as Picked Edge Sewing Machine Operator Future Scheduled Appointments No [...] change (02/05/2021 11:17 AM Abbie Monzon, RN MARKETING SERVICES MANAGER) Note: Formatting of this note [...] (02/05/2021 No Abbie Ramesh RN 11:14 AM MARKETING SERVICES MANAGER) Note: Formatting of this note [...] imary documented in this encounter Care Teams Centerless Grinder Tender Relationship Specialty Start Date End Date Adriane Patel, SENIOR SOFTWARE ARCHITECT, INVERFORM MACHINE OPERATOR PCP - General Family Medicine 08/20/21 [address] [facility] [place] [id number] documented as of this encounter
--- OUTSIDE RECORDS SUMMARY | 2022-01-21 13:59 | XMS_ITS | Clinical Summary ---
:1945 Author Organization [facility] Address [address] [place] [address] Care Team Providers Name Role Phone Adriane Patel NUCLEAR UNIT OPERATOR, COGNOS LEAD Primary Care Provider [phone] Allergies Active Allergy Reactions Severity Noted Date [...] Vitamins-Minerals Contains Zinc (MULTIVITAMIN ADULT PO) per Bar Welder. Calcium Carbonate Take 1,000 mg by 0 [...] current use of insulin ([facility]) UNABLE TO FIND Med Name: FISH 0 Active OIL, ZINC, TUMERIC Blood Glucose Monitoring Use as directed 1 each 0 1 Active Suppl w/Device to check blood kitIndications: Type 2 sugars three diabetes mellitus without times daily. complication, with long-term current use of insulin ([facility]) Lancets miscIndications: Use as directed 100 each 11 1 Active Type 2 diabetes mellitus to check blood without complication, sugar three with long-term current times daily. use of insulin ([facility]) Insulin Pen Needle 31G X May check 1-2 100 each 3 10/17/2020 Active 4 MM miscIndications: times a day for Type 2 diabetes mellitus diabetes without complication, with long-term current use of insulin ([facility]) metFORMIN XR Take 1 tablet 90 tablet 3 11/09/2020 Ac tive (GLUCOPHAGE-XR) 500 MG 24 (500 mg total) hr tabletIndications: by mouth 1 (one) Type 2 diabetes mellitus time each day with other specified with dinner complication, with long-term current use of insulin ([facility]) glipiZIDE (GLUCOTROL XL) Take ONE pill 90 tablet 3 11/09/2020 Active 10 MG 24 hr ONCE a day for tabletIndications: Type 2 diabetes Do not diabetes mellitus with crush, chew, or other specified split. complication, with long-term current use of insulin ([facility]) ferrous sulfate 325 (65 Take 1 tablet 90 tablet 3 11/09/2020 Active Fe) MG tabletIndications: (325 mg total) Anemia, unspecified type by mouth 1 (one) time each day with breakfast insulin glargine Take 22 units 15 mL 5 12/05/2020 Active (Basaglar KwikPen) 100 once a day in UNIT/ML the PM for injectionIndications: diabetes OR Type 2 diabetes mellitus DIRECTED with other specified complication, without long-term current use of insulin ([facility]) Lancets miscIndications: Use as 100 each 11 12/14/2020 Active Type 2 diabetes mellitus instructed to with other specified check blood complication, with sugar 1-3 x day. long-term current use of insulin ([facility]) fluconazole (Diflucan) Take ONE daily 3 tablet [...] three times a day. 100 e ach 11 03/07/2021 Active stripIndications: Type 2 HgbA1c: 02/15/2020 8.6 3 diabetes mellitus with Last visit: 03/06/2021 other specified complication, with long-term current use of insulin ([facility]) Lancets (onetouch Microlet Lancets : Check blood sugar 3 times a day. 200 each 03/07/2021 Active ultrasoft) HgbA1c: 02/15/2020 8.6 3 lancetsIndications: Type Last visit: 03/06/2021 2 diabetes mellitus with other specified complication, with long-term current use of insulin ([facility]) Insulin Pen Needle 31G X Use once daily to inject insulin 100 each 03/07/2021 Active 8 MM miscIndications: HgbA1c: 02/15/2020 8.6 3 Type 2 diabetes mellitus Last visit: 03/06/2021 with other specified complication, with long-term current use of insulin ([facility]) ALPRAZolam (XANAX) 0.5 MG TAKE ONE TABLET 15 tablet 2 03/13/19 Active tabletIndications: BY MOUTH EVERY 8 Anxiety HOURS NEEDED FOR ANXIETY- MUST LAST 30 DAYS Blood Glucose Monitoring Contour Next Glucose Meter: Use daily 1 ki t 0 04/05/2021 Active Suppl (Blood Glucose HbgA1c: 8.6 02/14/2021 3 Monitor System) w/Device kitIndications: Type 2 diabetes mellitus with other specified complication, with long-term current use of insulin (HCC) levothyroxine (SYNTHROID) TAKE ONE TABLET 90 tablet 1 11/26/19 22 Active 75 MCG tabletIndications: BY MOUTH EVERY Hypothyroidism, DAY unspecified type Active Problems Problem Noted Date Chronic diarrhea 06/05/2020 Venous insufficiency 06/05/2020 Status post coronary artery stent placement 12/15/2019 Abnormal liver function test 09/12/2019 Pain of upper abdomen 06/13/2019 Stage 3 chronic kidney disease 08/27/2018 Edema 12/30/2017 Essential hypertension 12/30/2017 Benign paroxysmal positional vertigo 12/22/2017 Anemia 12/14/2017 Overview: Overview: Added automatically from request for cookie dozier [id number] Type 2 diabetes mellitus with other specified complica tion 08/10/2017 Rheumatoid arthritis 05/12/2017 Paresthesia of skin 03/31/2017 Gout 07/28/2016 Anemia 06/26/2016 Other terminal worker (current) drug therapy 03/31/2016 Hyperlipidemia 01/14/2016 Chronic coronary artery disease 02/05/2015 Overview: Overview: Coronary Artery Disease (CAD) [place] [facility] Chronic ischemic heart disease 02/05/2015 Overview: Overview: Coronary Artery Disease (CAD) [place] [facility] Subclinical hypothyroidism 10/26/2014 Cervicalgia 10/19/2014 [...] Comments Blood Pressure 162/86 03/06/2021 10:17 AM EAR NOSE AND THROAT SPECIALIST Pulse 72 03/06/2021 10:17 AM EAR NOSE AND THROAT SPECIALIST Temperature 37 ??C (98.6 ??F) 03/06/2021 9:35 AM EAR NOSE AND THROAT SPECIALIST Respiratory Rate 14 03/06/2021 9:35 AM EAR NOSE AND THROAT SPECIALIST Oxygen Saturation 97% 03/06/2021 9:35 AM EAR NOSE AND THROAT SPECIALIST Inhaled Oxygen Concentration - - Weight 82.6 kg (182 lb) 03/06/2021 9:35 AM EAR NOSE AND THROAT SPECIALIST Height 160.3 cm (5' 3.11) 03/06/2021 9:35 AM EAR NOSE AND THROAT SPECIALIST Body Mass Index 32.13 03/06/2021 9:35 AM EAR NOSE AND THROAT SPECIALIST Plan of Treatment Health Maintenance Due Date Last Done Comments Zoster Vaccines (1 of 2) 11/15/2015 09/20/2015, 08/28/2015 [facility] [place] 01/12/2021 01/13/2020 COVID-19 Vaccine (4 - 02/12/2021 12/18/2020, 05/15/2020, Booster for Pfizer series) 04/20/2020 Diabetic Foot Exam 03/16/2021 03/16/2020, 07/15/2018, 02/24/2017 Fall Risk Performed 06/05/2021 06/05/2020 Hemoglobin A1C 08/15/2021 02/14/2021, 07/25/2020, 06/15/2020, Additional history exists Mammogram 12/03/2021 12/03/2020, 12/02/2019, 11/26/2019, Additional history exists Lipid Panel 02/14/2022 02/14/2021, 09/06/2019, 03/17/2019, Additional history exists Urine Protein Screening 02/14/2022 02/14/2021, 06/01/2019, 02/24/2017, Additional history exists Glaucoma Screening 67+ Yr 03/08/2022 03/08/2021, 12/26/2019 , 12/17/2018 Ophthalmology Exam 03/08/2023 03/08/2021, 12/26/2019, 07/18/2019, Additional history exists DTaP,Tdap,and Td Vaccines 08/15/2029 08/16/2019, 08/16/2019 , (3 - Td or Tdap) 02/14/2010, Additional history exists Colonoscopy Discontinued 05/21/2018 Pneumococcal Vaccine: 65+ Completed 08/16/2019, 06/21/2014 , Years 01/28/2008 HPV Vaccines Aged Out No longer eligib phil based on patient 's age to complete this topic Goals Goal Patient Goal Associated Recent Patient-Stated? Author Type Problems Progress Routine Health General No change No Domitila, Peter (02/05/2021 Abbie Murray 11:19 AM EAR NOSE AND THROAT SPECIALIST) RN Note: Formatting of this note is differe nt from the original. Routine Health Management Care Team Patient Care Team: Corrine Vazquez MD as PCP - General ([facility] Medicine) Yossi Potts, RN as Registered Nurse (Diabetes Education) Abbie Ramesh, ERA as Glass Sagger Future Scheduled Appointments No future appointments. Health [...] change (02/05/2021 11:17 AM Abbie Monzon, RN EAR NOSE AND THROAT SPECIALIST) Note: Formatting of this note is [...] (02/05/2021 No Abbie Ramesh RN 11:14 AM EAR NOSE AND THROAT SPECIALIST) Note: Formatting of this note is [...] Phone Addre ss Type Group MEDICARE MEDICARE [id number] 2010-[employer] [address] [place] [address] BCBS OF [employer] [place] [id number] 2016-[employer] [address] [address] [place], [place] MEDICARE NON [address] ADVANTAGE Care Teams Executive Officer Special Warfare Team Relationship Specialty Start Date End Date Adriane Patel, NUCLEAR UNIT OPERATOR, COGNOS LEAD PCP - General Family Medicine 08/20/[address] [place] [address] [place] [id number]
--- OUTSIDE RECORDS SUMMARY | 2022-01-21 14:00 | XMS_ITS | Encounter Summary ---
:1945 Author Organization [facility] Address [address] [place] [address] Care Team Providers Name Role Phone Corrine Vazquez MD Primary Care Provider Reason for Visit Reason Onset Date Comments med refill 01/14/2021 Encounter Details Date Type Department Care Team Description 01/14/2021 Telephone [place] Corrine Vazquez MD med refill [address] [address] [place], [place] [phone] (Wo rk) Social History Tobacco Use Types [...] Left generic message that Rx was sent. SYSTEMS ARCHITECT Telephone Encounter - Corrine Vazquez MD - 01/16/2021 8:43 AM CST Rx sent to [facility] SYSTEMS ARCHITECT Telephone Encounter - Luciana Albarado - 01/15/2021 2:54 PM CST Pt called stating she is out of her fluconazole and is hoping to get this refilled [facility]. Please call Pt at [phone] to advise. SYSTEMS ARCHITECT Telephone Encounter - Maryse Coker - 01/14/2021 9:49 AM CST Pt is requesting a refill of fluconazole be sent to [facility] in [place]. She is out of this medication. Please advise. Thanks. SYSTEMS ARCHITECT documented in this encounter Plan of Treatment Not on filedocumented as of this encounter Goals Goal Patient Goal Associated Recent Patient-Stated? Author Type Problems Progress Routine Health General No change Peter Monzon (02/05/2021 Abbie Murray, 11:19 AM LEAD SYSTEMS ARCHITECT) RN Note: Formatting of this note is differe nt from the original. Routine Health Management Care Team Patient Care Team: Corrine Vazquez MD as [facility]CP - [facility] Yossi Potts, RN as Registered Nurse (Diabetes Education) Abbie Ramesh RN as Platform Beater Future Scheduled Appointments No future appointments. Health [...] (02/05/2021 11:17 AM No Abbie Ramesh, RN LEAD SYSTEMS ARCHITECT) Note: Formatting of this note is differe [...] (02/05/2021 No Abbie Ramesh RN 11:14 AM LEAD SYSTEMS ARCHITECT) Note: Formatting of this note is differe [...] vaginitis documented in this encounter Care Teams Lease Out Worker Relationship Specialty Start Date End Date Corrine Vazquez MD PCP - General Family Medicine 07/07/19 08/19/[address] [place] [address] documented as of this encounter
--- OUTSIDE RECORDS SUMMARY | 2022-01-21 14:00 | XMS_ITS | Encounter Summary ---
:1945 Author Organization [facility] Address [address] [place] [address] Care Team Providers Name Role Phone Corrine Vazquez MD Primary Care Provider Encounter Details Date Type Department Care Team Description 12/10/2020 Telephone [place] Corrine Vazquez MD [address] [facility] [address] [place], [place] [address] [place], [place] [phone] (Wo rk) Social History Tobacco Use Types [...] Peter Monzon (02/05/2021 Abbie Murray 11:19 AM DENTAL TREATMENT COORDINATOR) RN Note: Formatting of this note is differe nt from the original. Routine Health Management Care Team Patient Care Team: Corrine Vazquez MD as PCP - General ([facility] Medicine) Yossi Potts, RN as Registered Nurse (Diabetes Education) Abbie Ramesh, RN as Manufacturing Worker Future Scheduled Appointments No future appointments. Health Maintenance Health Maintenance Topic Date Due Urine Protein Screening 05/31/2020 Lipid Panel 09/05/2020 Glaucoma Screening 67+ Yr 12/25/2020 Ophthalmology Exam 12/25/2020 [facility] Annual Wellness 01/12/2021 [...] change (02/05/2021 11:17 AM Abbie Monzon, RN DENTAL TREATMENT COORDINATOR) Note: Formatting of this note is [...] track (02/05/2021 Abbie Monzon RN 11:14 AM DENTAL TREATMENT COORDINATOR) Note: Formatting of this note is differe nt from the original. Cardiovascular Management Essential hypertension Chronic coronary artery disease Managed by (PCP; Cardiology; [facility]) Dr. Ronak lozoya MD (PCP)/Dr. [...] on filedocumented in this encounter Care Teams Ethylene Plant Operator Relationship Specialty Start Date End Date Corrine Vazquez MD PCP - General Family Medicine 07/07/19 08/19/[address] [place] [address] documented as of this encounter
--- OUTSIDE RECORDS SUMMARY | 2022-01-21 14:00 | XMS_ITS | Encounter Summary ---
:1945 Author Organization [facility] Address [address] [place] [address] Care Team Providers Name Role Phone Corrine Vazquez MD Primary Care Provider Encounter Details Date Type Department Care Team Description 02/14/2021 Lab Chuckie Pierre Type 2 diabetes mellitus wit hout complication, with long-term current use of insulin (HCC); [address] Mixed hyperlipidemia; [place], [place] [address] Screening for deficiency ane luis; [phone] Type 2 diabetes mellitus with other specified [...] Management (02/05/2021 Abbie Murray, 11:19 AM PRODUCT MERCHANDISER) RN Note: Formatting of this note is differe nt from the original. Routine Health Management Care Team Patient Care Team: Corrine Vazquez MD as PCP - General ([facility] Medicine) Yossi Potts, RN as Registered Nurse (Diabetes Education) Abbie Ramesh RN as Jute Bag Clipper Future Scheduled Appointments No future appointments. Health [...] 11:17 AM No Abbie Ramesh, RN PRODUCT MERCHANDISER) Note: Formatting of this note is differe [...] (02/05/2021 Abbie Monzon RN 11:14 AM PRODUCT MERCHANDISER) Note: Formatting of this note is differe [...] Result s for this FILTRATION RATE PRODUCT MERCHANDISER mellitus without procedur e are in complication, with the resul ts long-term current use sectio n. of insulin ([facility]) CBC BRANCH OFFICE Routine 02/14/2021 9:30 AM Resu lts for this W/DIFF PRODUCT MERCHANDISER procedure are i n the results section. HEMOGLOBIN A1C Routine 02/14/2021 9:30 AM Type 2 diabetes Resu lts for this PRODUCT MERCHANDISER mellitus without procedure a re in complication, with the resul ts long-term current use sectio n. of insulin ([facility]) LIPID PANEL Routine 02/14/2021 9:30 AM Type 2 diabetes Result s for this PRODUCT MERCHANDISER mellitus without procedure a re in complication, with the resul ts long-term current use sectio n. of insulin ([facility]) Mixed hyperlipidemia BASIC METABOLIC Routine 02/14/2021 9:30 AM Type 2 diabetes Res ults for this PANEL PRODUCT MERCHANDISER mellitus without procedure a re in complication, with the resul ts long-term current use sectio n. of insulin (HCC) MICROALBUMIN/CREATI Routine 02/14/2021 9:10 AM Type 2 diabetes Results for this NINE RATIO PRODUCT MERCHANDISER mellitus with other procedur e are in specified the results complication, with section. long-term current use of insulin (HCC) documented in this encounter Results (ABNORMAL) Glomerular filtration rate (GFR) (02/14/2021 9:30 AM PRODUCT MERCHANDISER) P athologist Signature GFR 34 (A) 02/14/2021 [facility] 1:26 PM [facility]CH[facility] 41 (A) 02/14/2021 [facility] [place] GFR 1:26 PM PRODUCT MERCHANDISER [facility] Comment: GFR calculated from serum creatinine v alue Chronic Kidney Disease less than 60 mL/m in/1.73 m2 Kidney Failure less than 15 mL/min/1.73 m2 Note: effective 07/01/06 IDMS-Traceable MDRD Study Equation used. Specimen Anatomical Collection Method Collection Time Receive d Time (Source) Location / / Volume Laterality 02/14/2021 9:30 AM 9:30 PRODUCT MERCHANDISER AM PRODUCT MERCHANDISER D. Lincoln Vazquez MD LAB BLOOD ORDERABLES Performing Organization Address City/State/ZIP Code Phon e Number [facility] [address] [place] [phone] (ABNORMAL) CBC Branch Off w/Diff (02/14/2021 9:30 AM PRODUCT MERCHANDISER) Patholo gist Method Time Signature WBC 7.7 3.5 - 10.5 02/14/2021 [facility] K/uL 11:26 AM [place] RBC 3.71 (L) 3.90 - 02/14/2021 [facility] 5.00 M/uL 11:26 AM [place] Hemoglobin 10.9 (L) 12.0 - 02/14/2021 [facility] 15.5 g/dL 11:26 AM [place] Hematocrit 33.2 (L) 35.0 - 02/14/2021 [facility] 44.0 % 11:26 AM [facility] [place] [place] Platelets 205 150 - 450 02/14/2021 [facility] K/uL 11:26 AM [place]CH[facility] [place] MCV 89.5 81.6 - 02/14/2021 [facility] 98.3 fL 11:26 AM [place] MCH 29.4 26.0 - 02/14/2021 [facility] 32.0 pg 11:26 AM [place] MCHC 32.8 32.0 - 02/14/2021 [facility] 36.0 g/dL 11:26 AM [place] RDW 13.3 11.9 - 02/14/2021 [facility] 15.5 % 11:26 AM [place] Lymphocytes % 14.9 % 02/14/2021 [facility] 11:26 AM [place] Mid-size Cells 10.5 % 02/14/2021 [facility] 11:26 AM [place] Granulocytes/Jean Claude 74.6 % 02/14/2021 [facility] trophils 11:26 AM [place] Lymphocytes 1.1 0.9 - 2.9 02/14/2021 [facility] Absolute K/uL 11:26 AM [place] MIDS Absolute 0.8 0.4 - 1.5 02/14/2021 [facility] K/uL 11:26 AM [place] Granulocytes/Jean Claude 5.8 1.7 - 7.0 02/14/2021 [facility] trophils K/uL 11:26 AM [place] Absolute Specimen Anatomical Collection Method Collection Time Receive d Time (Source) Location / / Volume Laterality 02/14/2021 9:30 AM 9:35 PRODUCT MERCHANDISER AM PRODUCT MERCHANDISER D. Lincoln Vazquez MD LAB BLOOD ORDERABLES Performing Organization Address City/State/ZIP Code Phon e Number [facility] [place] [address] [place] [address] (ABNORMAL) Basic metabolic panel (02/14/2021 9:30 AM PRODUCT MERCHANDISER) Analysis Performed At Patho logist Time Signature Sodium 137 135 - 145 02/14/2021 [facility] mEq/L 1:26 PM [facility] Potassium 3.8 3.5 - 5.1 02/14/2021 [facility] mEq/L 1:26 PM [facility] Chloride 103 98 - 107 02/14/2021 [facility] mEq/L 1:26 PM [facility] CO2 25 22 - 29 02/14/2021 [facility] mmol/L 1:26 PM [facility] Creatinine 1.5 (H) 0.4 - 1.2 02/14/2021 [facility] mg/dL 1:26 PM [facility] BUN 28 (H) 5 - 25 02/14/2021 [facility] mg/dL 1:26 PM [facility] Glucose 169 (H) 70 - 100 02/14/2021 [facility] mg/dL 1:26 PM [facility] Calcium, 9.3 8.4 - 10.2 02/14/2021 [facility] Total,S mg/dL 1:26 PM [facility] Specimen Anatomical Collection Method Collection Time Receive d Time (Source) Location / / Volume Laterality Blood 02/14/2021 9:30 AM PRODUCT MERCHANDISER 12:48 PM PRODUCT MERCHANDISER Corrine Vazquez MD LAB BLOOD ORDERABLES Performing Organization Address City/[facility] e Number [facility] [address] [place] [address] (ABNORMAL) Hemoglobin A1c (02/14/2021 9:30 AM PRODUCT MERCHANDISER) Analysis Performed At Patho logist Time Signature Hemoglobin A1C 8.6 (H) 4.0 - 5.6 02/14/2021 [facility] % A1C 6:49 PM [facility] Comment: Reference Range 4.0-5.6% is [...] 9:30 AM 02/15/20 21 6:20 Venous) PRODUCT MERCHANDISER PM PRODUCT MERCHANDISER Corrine Vazquez MD LAB BLOOD ORDERABLES Performing Organization Address City/[facility] Phon e Number [facility] [address] [place] [address] (ABNORMAL) Lipid panel (02/14/2021 9:30 AM PRODUCT MERCHANDISER) P athologist Signature Cholesterol 237 (H) 0 - 199 02/14/2021 [facility] mg/dL 1:26 PM [facility] Comment: Recommended by National Cholesterol Education Program (ATP III) -------- Cholesterol Ranges -------- <200 ?Desirable 200-239 ? Borderline high >=240 ? High Triglycerides 285 (H) 0 - 149 mg/dL 02/14/2021 1:26 PM [facility] Comment: -------- TRIG Ranges -------- <150 ?Normal 150-199 ? Borderline high 200-499 ? High >=500 ? Very high HDL 44 40 - 250 mg/dL 02/14/2021 1:26 PM [facility] Comment: -------- HDL Ranges -------- <40 ?Low 40-59 ?Normal >=60 ? Optimal LDL Calculated 136 (H) 0 - 99 mg/dL 02/14/2021 1:26 PM [facility] Comment: -------- LDL Ranges -------- <100 ? Optimal 100-129 ?Near optimal/above op timal 130-159 ?Borderline high 160-189 ?High >=190 ?Very high Fasting? Yes 02/14/2021 9:35 AM [facility] Specimen Anatomical Collection Method Collection Time Receive d Time (Source) Location / / Volume Laterality Blood 02/14/2021 9:30 AM PRODUCT MERCHANDISER 12:48 PM PRODUCT MERCHANDISER D. Lincoln Vazquez MD LAB BLOOD ORDERABLES Performing Organization Address City/State/ZIP Code Phon e Number [facility] [address] [place] [address] (ABNORMAL) Microalbumin/Creatinine Ratio (02/14/2021 9:10 AM PRODUCT MERCHANDISER) [facility] Method Time Signature Microalbumin,m 104.3 (H) 0.0 - 16.6 02/14/2021 [facility] g/day mg/L 1:37 PM [facility] Comment: . Creatinine, Urine 257 mg/dL 02/14/2021 1:37 PM [facility] Comment: No established reference range. Microalb/Creat Ratio 41 (H) 0 - 24 mg/g 02/14/2021 1:37 P [facility] Specimen Anatomical Collection Method Collection Time Receive d Time (Source) Location / / Volume Laterality Urine (Urine, 02/14/2021 9:10 AM 02/15/20 21 Clean Catch) PRODUCT MERCHANDISER 12:48 PM PRODUCT MERCHANDISER D. Lincoln Vazquez MD LAB URINE ORDERABLES Performing Organization Address City/State/ZIP Code Phon e Number [facility] [address] [place] [address] documented in this encounter Visit Diagnoses Diagnosis Type 2 diabetes mellitus without complic ation, with long-term current use of insulin (HCC) Mixed hyperlipidemia Screening for deficiency anemia Screening for other and unspecified defi ciency anemia Type 2 diabetes mellitus with other spec ified complication, with long-term current use of insulin (HCC) documented in this encounter Care Teams Pleat Taper Relationship Specialty Start Date End Date Corrine Vazquez MD PCP - General Family Medicine 07/07/19 08/19/21 [address] [place] [address] documented as of this encounter
--- OUTSIDE RECORDS SUMMARY | 2022-01-21 14:00 | XMS_ITS | Encounter Summary ---
:1945 Author Organization [facility] Address [address] [place] [address] Care Team Providers Name Role Phone Corrine [...] Vazquez MD Care Coordination [address] [place] [address], [place] [phone] Referral ID Status Reason Start Date Expiration Date Visits V isits Requested Authorized [id number] Closed Specialty 02/21/2020 03/18/2021 99 99 Services Required Encounter Details Date Type Department Care Team Description 01/08/2021 Patient Outreach Care Coordination Abbie Ramesh [facility] and [address] [place] [address] Terri RN coordination of care [place], [place] [phone] [place] [facility] (Primary Dx) [phone] [place] [address] Social History Tobacco Use Types [...] 12/23/2018 organizations such as cheondoism groups, unions, frauGift or athletic groups, or school groups? How [...] is first attempt to call this month. RETTE MACHINE FILLER documented in this encounter Plan of Treatment Not on filedocumented as of this encounter Goals Goal Patient Goal Associated Recent Patient-Stated? Author Type Problems Progress Routine Health General No change Peter Monzon (02/05/2021 Abbie Murray, 11:19 AM CIGARETTE MACHINE FILLER) RN Note: Formatting of this note is differe nt from the original. Routine Health Management Care Team Patient Care Team: Corrine Vazquez MD as PCP - General ([facility] Medicine) Yossi Potts, RN as Registered Nurse (Diabetes Education) Abbie Ramesh RN as Sugar Controller Future Scheduled Appointments No future appointments. [...] (02/05/2021 11:17 AM No Abbie Ramesh, RN CIGARETTE MACHINE FILLER) Note: Formatting of this note is [...] (02/05/2021 No Abbie aRmesh, RN 11:14 AM CIGARETTE MACHINE FILLER) Note: Formatting of this note is [...] imary documented in this encounter Care Teams Java Software Relationship Specialty Start Date End Date Corrine Vazquez MD PCP - General Family Medicine 07/07/19 08/19/[address] [place] [address] documented as of this encounter
--- OUTSIDE RECORDS SUMMARY | 2022-01-21 14:00 | XMS_ITS | Encounter Summary ---
:1945 Author Organization [facility] Address [address] [place] [address] Care Team Providers Name Role Phone Corrine Vazquez MD Primary Care Provider Reason for Visit Reason Onset Date Comments registry management 05/09/2021 Encounter Details Date Type Department Care Team Description 05/09/2021 Telephone [place] Corrine Vazquez, registry management [address] [facility] 20 [place], [place] [address] [phone] [place] [address] (Wo rk) Social History Tobacco Use Types [...] had an eye exam recently at the [facility], RN will call for records. ??? , please advise on possible Aspirin Therapy. documented in this encounter Plan of Treatment Not on filedocumented as of this encounter Goals Goal Patient Goal Associated Recent Patient-Stated? Author Type Problems Progress Routine Health General No change No Domitila, Management (02/05/2021 Abbie Murray, 11:19 AM SAFETY OFFICER) RN Note: Formatting of this note is differe nt from the original. Routine Health Management Care Team Patient Care Team: Corrine Vazquez MD as PCP - General ([facility] Medicine) Yossi Potts, RN as Registered Nurse (Diabetes Education) Abbie Ramesh RN as Customer Technical Services Manager Future Scheduled Appointments No future [...] (02/05/2021 11:17 AM No Abbie Ramesh, RN SAFETY OFFICER) Note: Formatting of this note is [...] track (02/05/2021 Abbie Monzon RN 11:14 AM SAFETY OFFICER) Note: Formatting of this note is [...] on filedocumented in this encounter Care Teams Bottle And Glass Inspector Relationship Specialty Start Date End Date Corrine Vazquez MD PCP - General Family Medicine 07/07/19 08/19/[address] [place] [address] documented as of this encounter
--- OUTSIDE RECORDS SUMMARY | 2022-01-21 14:00 | XMS_ITS | Encounter Summary ---
:1945 Author Organization [facility] Address [address] [place] [address] Care Team Providers Name Role Phone Corrine Herrera MD Primary Care Provider Reason for Visit Reason Comments Diabetic Review Encounter Details Date Type Department Care Team Description 03/06/2021 Office Visit Chuckie Pierre Corrine Herrera Type 2 diabetes mellitus wit h other specified complication, with long-term current use of insulin (HCC) (Primary Dx); [address] [place] Primary hypertension; [place], [place] [address] [address] Hypothyroidism, unspecified type [phone] [place] [address] Social History Tobacco Use Types Packs/Day Years [...] Comments Blood Pressure 162/86 03/06/2021 10:17 AM LATHMAKER Pulse 72 03/06/2021 10:17 AM LATHMAKER Temperature 37 ??C (98.6 ??F) 03/06/2021 9:35 AM LATHMAKER Respiratory Rate 14 03/06/2021 9:35 AM LATHMAKER Oxygen Saturation 97% 03/06/2021 9:35 AM LATHMAKER Inhaled Oxygen Concentration - - Weight 82.6 kg (182 lb) 03/06/2021 9:35 AM LATHMAKER Height 160.3 cm (5' 3.11) 03/06/2021 9:35 AM LATHMAKER Body Mass Index 32.13 03/06/2021 9:35 AM LATHMAKER documented in this encounter Progress Notes Corrine [...] check. RHEUMATOID ARTHRITIS patient has a director craft center to adjust all of her rheumatological medications. [...] forth to be sent to [facility] in [facility] as it would be better covered there as compared to her current pharmacy. All of her other medications she like to still go to the local pharmacy. Review of Systems Objective Physical Exam Assessment/Plan Diagnoses and all orders for this visit: Type 2 diabetes mellitus with other specified complication, with long-term current use of insulin ([facility]) Primary hypertension - hydroCHLOROthiazide (HYDRODIURIL) 12.5 MG [...] Order her diabetic supplies through [facility] in [place] CONSULT TIME 25 minutes on old 25 minutes was spent in review of her chart her medications her ambulatory test and so forth MAKER Lana Bledsoe LPN - 03/06/2021 9:40 AM CST Nurse Note [facility] Gurinder NogueraHarshaw MAKER Corrine Herrera MD - 03/06/2021 9:40 AM CST You can fax the DME for her diabetic supplies to [facility] in [facility]. Then call the patient let her know that she can pick and shovel man her diabetic supplies at [facility] in [place]. All of her other prescriptionshave gone to [facility]. MAKER documented in this encounter Miscellaneous Notes Addendum Note - Lana Bledsoe LPN - 03/06/2021 9:40 AM LATHMAKER Addended by: LANA BLEDSOE on: 03/07/2021 10:56 AM Modules accepted: Orders MAKER Addendum Note - Corrine Herrera MD - 03/06/2021 9:40 AM LATHMAKER Addended by: Corrine HERRERA on: 03/07/2021 03:08 PM Modules accepted: Orders MAKER documented in this encounter Plan of [...] Roschen, Management (02/05/2021 Abbie Murray, 11:19 AM LATHMAKER) RN Note: Formatting of this note is differe nt from the original. Routine Health Management Care Team Patient Care Team: Corrine Herrera MD as PCP - General ([facility] Medicine) Yossi Potts, RN as Registered Nurse (Diabetes Education) Abbie Ramesh, RN as Steel Floor Pan Placing Supervisor Future Scheduled Appointments No future appointments. [...] (02/05/2021 11:17 AM No Abbie Ramesh, RN LATHMAKER) Note: Formatting of this note is differe [...] track (02/05/2021 Abbie Monzon RN 11:14 AM LATHMAKER) Note: Formatting of this note is differe [...] type documented in this encounter Care Teams Electroneurodiagnostic Technologist Relationship Specialty Start Date End Date Corrine Herrera MD PCP - General Family Medicine 07/07/19 08/19/[address] [place] [address] documented as of this encounter
--- OUTSIDE RECORDS SUMMARY | 2022-01-21 14:00 | XMS_ITS | Encounter Summary ---
:1945 Author Organization [facility] Address [address] [place] [address] Care Team Providers Name Role Phone Corrine [...] Corrine Vazquez MD Care Coordination [address] [facility] [address] [place] [address] [place], [place] [phone] Referral ID Status Reason Start Date Expiration Date Visits V isits Requested Authorized [id number] Closed Specialty 02/21/2020 03/18/2021 99 99 Services Required Encounter Details Date Type Department Care Team Description 12/11/2020 Patient Outreach SE Care Coordination Abbie Ramesh Counseling and coordination of care (Primary Dx); [address] [place] [address] Terri RN Type 2 diabetes mellitus with other spec ified complication, with long-term current use of insulin (HCC); [place] [address] [address] [facility] hypertension [phone] [place] [address] Social History Tobacco Use Types [...] forward with EGD. Checked with [facility] in [place] and was told they have not received the paperwork yet. Will have CF call center receptionist re-send. Follow-up plan: ?? Monthly or sooner if needed Items for Provider to address: ??? None Goals Today 11/02/20 07/20/20 06/22/20 05/24/20 General ??? Cardiovascular Management On track On track On track No change Cardiovascular Management Essential hypertension Chronic coronary artery disease Managed by (PCP; Cardiology; [facility]) Dr. Taylor MD [...] Nurse (Diabetes Education) Abbie Ramesh RN as Almond Roaster Future Scheduled Appointments No future appointments. Health [...] Ramesh, Management (02/05/2021 Abbie Murray, 11:19 AM AGRICULTURE LABORER) RN Note: Formatting of this note is differe nt from the original. Routine Health Management Care Team Patient Care Team: Corrine Vazquez MD as PCP - General ([facility] Medicine) Yossi Potts, RN as Registered Nurse (Diabetes Education) Abbie Ramesh RN as Almond Roaster Future Scheduled Appointments No future appointments. Health [...] change (02/05/2021 11:17 AM Abbie Monzon, RN AGRICULTURE LABORER) Note: Formatting of this note is [...] (02/05/2021 No Abbie Ramesh RN 11:14 AM AGRICULTURE LABORER) Note: Formatting of this note is [...] hypertension documented in this encounter Care Teams Electrician Aircraft Relationship Specialty Start Date End Date Corrine Vazquez MD PCP - General Family Medicine 07/07/19 08/19/[address] [place] [address] documented as of this encounter
--- OUTSIDE RECORDS SUMMARY | 2022-01-21 14:00 | XMS_ITS | Encounter Summary ---
:1945 Author Organization [facility] Address [address] [place] [address] Care Team Providers Name Role Phone Corrine Vazquez MD Primary Care Provider Encounter Details Date Type Department Care Team Description 12/11/2020 Telephone [place] Corrine Vazquez MD [address] [facility] [address] [place], [place] [address] [place], [place] [phone] (Wo rk) Social History Tobacco Use Types [...] 12/11/2020 4:42 PM CDT Referral faxed to [place] [facility] as requested. Telephone Encounter - Margareth Sanchez RN - 12/11/2020 4:26 PM CDT Please re fax referral for [facility] documented in this encounter Plan of Treatment Not on filedocumented as of this encounter Goals Goal Patient Goal Associated Recent Patient-Stated? Author Type Problems Progress Routine Health General No change No Peter Ramesh (02/05/2021 Abbie Murray, 11:19 AM BACK STAYER) RN Note: Formatting of this note is differe nt from the original. Routine Health Management Care Team Patient Care Team: Corrine Vazquez MD as PCP - General ([facility] Medicine) Yossi Potts RN as Registered Nurse (Diabetes Education) Abbie Ramesh RN as Napper Runner Future Scheduled Appointments No future appointments. Health [...] change (02/05/2021 11:17 AM Abbie Monzon, RN BACK STAYER) Note: Formatting of this note is differe [...] track (02/05/2021 Abbie Monzon RN 11:14 AM BACK STAYER) Note: Formatting of this note is differe nt from the original. Cardiovascular Management Essential hypertension Chronic coronary artery disease Managed by (PCP; Cardiology; [facility]) Dr. Ronak lozoya MD (PCP)/Dr. Tena [...] on filedocumented in this encounter Care Teams Kettleman Relationship Specialty Start Date End Date Corrine Vazquez MD PCP - General Family Medicine 07/07/19 08/19/[address] [place] [address] documented as of this encounter
--- OUTSIDE RECORDS SUMMARY | 2022-01-21 14:00 | XMS_ITS | Encounter Summary ---
:1945 Author Organization [facility] Address [address] [place] [address] Care Team Providers Name Role Phone Corrine Vazquez MD Primary Care Provider Encounter Details Date Type Department Care Team Description 02/05/2021 Orders Only SE Care Coordination Corrine Vazquez Type 2 diabetes [address] [facility] MD [place] [address] specified complication, [place] with long-term current [place], [place] use of insu [place] ([facility]) [phone] (Primary Dx) Social History Tobacco Use Types [...] Ramesh, Peter (02/05/2021 Abbie Murray, 11:19 AM POLITICAL GEOGRAPHER) RN Note: Formatting of this note is differe nt from the original. Routine Health Management Care Team Patient Care Team: Corrine Vazquez MD as PCP - General ([facility] Medicine) Yossi Potts, RN as Registered Nurse (Diabetes Education) Abbie Ramesh, RN as Civil Engineer'S Aide Future Scheduled Appointments No future appointments. Health [...] change (02/05/2021 11:17 AM Abbie Monzon, RN POLITICAL GEOGRAPHER) Note: Formatting of this note is differe [...] (02/05/2021 No Abbie Ramesh RN 11:14 AM POLITICAL GEOGRAPHER) Note: Formatting of this note is differe [...] Results (ABNORMAL) Microalbumin/Creatinine Ratio (02/14/2021 9:10 AM POLITICAL GEOGRAPHER) [facility] Method Time Signature Microalbumin,m 104.3 (H) 0.0 - 16.6 02/14/2021 [place] g/day mg/L 1:37 PM [facility] Comment: . Creatinine, Urine 257 mg/dL 02/14/2021 1:37 PM [facility] Comment: No established reference range. Microalb/Creat Ratio 41 (H) 0 - 24 mg/g 02/14/2021 1:37 P M [facility] Specimen Anatomical Collection Method Collection Time Receive d Time (Source) Location / / Volume Laterality Urine (Urine, 02/14/2021 9:10 AM 02/15/20 21 Clean Catch) POLITICAL GEOGRAPHER 12:48 PM POLITICAL GEOGRAPHER D. [place] Vazquez MD LAB URINE ORDERABLES Performing Organization Address City/State/ZIP Code Phon e Number [facility] [address] [place] [address] documented in this encounter Visit Diagnoses Diagnosis Type 2 diabetes mellitus with other spec ified complication, with long-term current use of insulin (HCC) - Primary documented in this encounter Care Teams Assistant Curator Relationship Specialty Start Date End Date Corrine Vazquez MD PCP - General Family Medicine 07/07/19 08/19/21 1705 [facility] [address] [place] [address] documented as of this encounter
--- OUTSIDE RECORDS SUMMARY | 2022-01-21 14:00 | XMS_ITS | Encounter Summary ---
:[address] [facility] Address [address] [place] [address] Care Team Providers Name Role Phone Corrine Vazquez MD Primary Care Provider Reason for Visit Reason Onset Date Comments Two prescriptions 03/06/2021 Encounter Details Date Type Department Care Team Description 03/06/2021 Telephone [place] Corrine Vazquez, Two prescriptions [address] [place], [place] [address] [phone] [place] [address] (Wo rk) Social History Tobacco Use Types [...] pen needles all faxed to [facility]. INE GROUP LEADER Telephone Encounter - Lana Knight LPN - 03/07/2021 3:34 PM CST Please fax to [facility] INE GROUP LEADER Telephone Encounter - Margareth Sanchez RN - 03/07/2021 3:32 PM CST ----- Message from Corrine Vazquez MD sent at 03/07/2021 3:08 PM MACHINE GROUP LEADER ----- You can fax the DME for her diabetic supplies to [facility] in [place]. Then call the patient let her know that she can belt picker her diabetic supplies at [facility] in [place]. All of her other prescriptionshave gone to [facility]. ----- Message ----- From: Lana Knight LPN Sent: 03/07/2021 10:55 AM MACHINE GROUP LEADER To: Corrine Vazquez MD INE GROUP LEADER Telephone Encounter - Margareth Sanchez RN - 03/07/2021 2:47 PM CST Patient informed. INE GROUP LEADER Telephone Encounter - Corrine Vazquez MD - 03/07/2021 9:59 AM CST Let patient know that I have sent to [facility] for 2 new blood pressure medications that she can [facility] picker [facility]. Remind her again to come in about a month to have her blood pressure checkedand please do not forget to place the DME order for diabetic supplies to be sent to [facility] in [place]. INE GROUP LEADER Telephone Encounter - Margareth Sanchez RN - 03/06/2021 2:52 PM CST Please advise on medication requests to [facility]. INE GROUP LEADER Telephone Encounter - Luciana Albarado - 03/06/2021 2:12 PM CST Pt called to let Dr. Vazquez know she checked and yes - she would like you to go ahead and send thetwo prescriptions that were discussed at her appt to [facility]. Any questions please call Pt [phone] as necessary. INE GROUP LEADER documented in this encounter Plan of Treatment Not on filedocumented as of this encounter Goals Goal Patient Goal Associated Recent Patient-Stated? Author Type Problems Progress Routine Health General No change Peter Monzon (02/05/2021 Abbie Murray, 11:19 AM MACHINE GROUP LEADER) RN Note: Formatting of this note is differe nt from the original. Routine Health Management Care Team Patient Care Team: Corrine Vazquez MD as PCP - General ([facility]) Yossi Potts, RN as Registered Nurse (Diabetes Education) Abbie Ramesh, RN as Residential Energy Auditor Future Scheduled Appointments No future appointments. Health Maintenance Health Maintenance Topic Date Due Urine Protein Screening 05/31/2020 Lipid Panel 09/05/2020 Glaucoma Screening 67+ Yr 12/25/2020 Ophthalmology Exam 12/25/2020 [facility] [place] Wellness 01/12/2021 Hemoglobin A1C 01/24/2021 Diabetic Foot Exam 03/16/2021 Colorectal Cancer Screening: Colonoscop y 05/21/2021 Fall Risk Performed 06/05/2021 Mammogram 12/03/2021 COVID-19 Vaccine Completed [facility] Pneumococcal Vaccine: <64 Completed [facility] Pneumococcal Vaccine: 65+ Years Com pleted HPV Vaccines Aged Out Notes: Due: Urine Protein screening Eye exam AWV A1C Lipid panel Diabetes Management General No change (02/05/2021 11:17 AM Abbie Monzon, RN MACHINE GROUP LEADER) Note: Formatting of this note is [...] No Abbie Ramesh, RN 11:14 AM MACHINE GROUP LEADER) Note: Formatting of this note is [...] documented in this encounter Care Teams Marketing Automation Analyst Relationship Specialty Start Date End Date Corrine Vazquez MD PCP - General Family Medicine 07/07/19 08/19/21 [address] [facility] 20 [place] [address] documented as of this encounter
--- OUTSIDE RECORDS SUMMARY | 2022-01-21 14:00 | XMS_ITS | Encounter Summary ---
:1945 Author Organization [facility] Address [address] [place] [address] Care Team Providers Name Role Phone Corrine Vazquez MD Primary Care Provider Reason for Visit Consultation (Routine) - Authorized Specialty Diagnoses / Procedures Referred By Contact Refer red To Contact Family Medicine Diagnoses Enrolled in chronic care management Essential hypertension Type 2 diabetes mellitus with other specified complication, with long-term current use of insulin (HCC) Mixed hyperlipidemia Corrine Vazquez MD Care Coordination [address] [place] [address] 5 [phone] Referral ID Status Reason Start Expiration Visits Visits Date Date Requested Authorized [id number] Authorized Specialty 02/16/2021 03/18/2022 99 99 Services Required Encounter Details Date Type Department Care Team Description 03/15/2021 Patient Outreach SE Care Coordination Abbie Ramesh J [address] [place] [address] [place] [address] [place] [phone] Social History Tobacco Use Types Packs/Day Years [...] 12/23/2018 organizations such as bahai groups, unions, fra[employer]some [employer]rapeutics or athletic groups, or school groups? [...] is first attempt to call this month. LEAD documented in this encounter Plan of Treatment Not on filedocumented as of this encounter Goals Goal Patient Goal Associated Recent Patient-Stated? Author Type Problems Progress Routine Health General No change Peter Monzon (02/05/2021 Abibe Murray, 11:19 AM LINE LEAD) RN Note: Formatting of this note is differe nt from the original. Routine Health Management Care Team Patient Care Team: Corrine Vazquez MD as [facility]CP - [facility] Yossi Potts, RN as Registered Nurse (Diabetes Education) Abbie Ramesh RN as Cafe Lead Future Scheduled Appointments No future appointments. [...] (02/05/2021 11:17 AM No Abbie Ramesh, RN LINE LEAD) Note: Formatting of this note is [...] (02/05/2021 No Abbie Ramesh, RN 11:14 AM LINE LEAD) Note: Formatting of this note is [...] on filedocumented in this encounter Care Teams Auto Clutch Specialist Relationship Specialty Start Date End Date Corrine Vazquez MD PCP - General Family Medicine 07/07/19 08/19/[address] [place] [address] documented as of this encounter
--- OUTSIDE RECORDS SUMMARY | 2022-01-21 14:00 | XMS_ITS | Encounter Summary ---
:1945 Author Organization [facility] Address [address] [place] [address] Care Team Providers Name Role Phone Corrine Vazquez MD Primary Care Provider Reason for Visit Consultation (Routine) - Authorized Specialty Diagnoses / Procedures Referred By Contact Refer red To Contact Family Medicine Diagnoses Enrolled in chronic care management Essential hypertension Type 2 diabetes mellitus with other specified complication, with long-term current use of insulin (HCC) Mixed hyperlipidemia Corrine Vazquez MD Care Coordination [address] [place] [address] 5 [phone] Referral ID Status Reason Start Expiration Visits Visits Date Date Requested Authorized [id number] Authorized Specialty 02/16/2021 03/18/2022 99 99 Services Required Encounter Details Date Type Department Care Team Description 04/10/2021 Patient Outreach SE Care Coordination Abbie Ramesh J [address] [place] [address] [place] [address] [place] [phone] Social History Tobacco Use Types Packs/Day Years [...] 12/23/2018 organizations such as sikh groups, unions, fra[employer]ilarus [employer] or athletic groups, or school groups? [...] first attempt to call this month. LE HOME MECHANIC documented in this encounter Plan of Treatment Not on filedocumented as of this encounter Goals Goal Patient Goal Associated Recent Patient-Stated? Author Type Problems Progress Routine Health General No change Peter Monzon (02/05/2021 Abbie Murray, 11:19 AM MOBILE HOME MECHANIC) RN Note: Formatting of this note is differe nt from the original. Routine Health Management Care Team Patient Care Team: Corrine Vazquez MD as PCP - General ([facility]) Yossi Potts, RN as Registered Nurse (Diabetes Education) Abbie Ramesh RN as Bank Cashier Future Scheduled Appointments No future appointments. Health [...] (02/05/2021 11:17 AM No Abbie Ramesh, RN MOBILE HOME MECHANIC) Note: Formatting of this note is [...] (02/05/2021 No Abbie Ramesh, RN 11:14 AM MOBILE HOME MECHANIC) Note: Formatting of this note is differe nt from the original. Cardiovascular Management Essential hypertension Chronic coronary artery disease Managed by (PCP; Cardiology; [facility]) Dr. Ronak lozoya MD (PCP)/Dr. [...] on filedocumented in this encounter Care Teams Office Nurse Relationship Specialty Start Date End Date Corrine Vazquez MD PCP - General Family Medicine 07/07/19 08/19/[address] [place] [address] documented as of this encounter
--- OUTSIDE RECORDS SUMMARY | 2022-01-21 14:00 | XMS_ITS | Encounter Summary ---
:1945 Author Organization [facility] Address [address] [place] [address] Care Team Providers Name Role Phone Corrine Vazquez MD Primary Care Provider Reason for Visit Reason Onset Date Comments Labs and Rx 01/24/2021 Encounter Details Date Type Department Care Team Description 01/24/2021 Telephone Mobile Corrine Vazquez MD Labs and Rx [address] [place], [place] [address] [place], [place] [phone] (Wo rk) Social History Tobacco Use Types [...] - 01/25/2021 10:26 AM CST Patient informed USER OPERATOR Telephone Encounter - Corrine Vazquez MD [...] she can certainly continue to take that. USER OPERATOR Telephone Encounter - Margareth Sanchez RN - 01/24/2021 2:55 PM CST Patients last A1c 07/25/20, due now. Order pended. Patients last TSH was 03/08 should she have this done again 03/09? Please advise on recommendations for Oxybutin. USER OPERATOR Telephone Encounter - Luciana Albarado - 01/24/2021 2:50 PM CST Pt ca;;aed asking if it's time her for to come in to have her A1C and thyroid checked. Pt also wanted Dr. Vazquez to know a physician she saw at [facility] wants to start her on Oxybutynin ER, and she wants to know what he thinks of that. Please call Pt at [phone] to advise. USER OPERATOR documented in this encounter Plan of Treatment Not on filedocumented as of this encounter Goals Goal Patient Goal Associated Recent Patient-Stated? Author Type Problems Progress Routine Health General No change No Domitila Management (02/05/2021 Abbie Murray, 11:19 AM DIFFUSER OPERATOR) RN Note: Formatting of this note is differe nt from the original. Routine Health Management Care Team Patient Care Team: Corrine Vazquez MD as PCP - General ([facility] Medicine) Yossi Potts, RN as Registered Nurse (Diabetes Education) Abbie Ramesh RN as Lumber Press Operator Future Scheduled Appointments No future [...] [facility] Pneumococcal Vaccine: <64 Completed [facility] Pneumococcal Vaccine: 65+ Years Com pleted HPV Vaccines Aged Out Notes: Due: Urine Protein screening Eye exam AWV A1C Lipid panel Diabetes Management General No change (02/05/2021 11:17 AM No Abbie Ramesh, RN DIFFUSER OPERATOR) Note: Formatting of this note is [...] (02/05/2021 No Abbie Ramesh RN 11:14 AM DIFFUSER OPERATOR) Note: Formatting of this note is [...] Primary documented in this encounter Care Teams Netbackup Administrator Relationship Specialty Start Date End Date Corrine Vazquez MD PCP - General Family Medicine 07/07/19 08/19/[address] [place] [address] documented as of this encounter
--- OUTSIDE RECORDS SUMMARY | 2022-01-21 14:00 | XMS_ITS | Encounter Summary ---
:1945 Author Organization [facility] Address [address] [place] [address] Care Team Providers Name Role Phone Corrine Vazquez MD Primary Care Provider Reason for Visit Reason Onset Date Comments fasting labs 02/13/2021 Encounter Details Date Type Department Care Team Description 02/13/2021 Telephone [place] Corrine Vazquez MD fasting labs [address] [place], [place] [address] [place], [place] [phone] (Wo rk) Social History Tobacco Use Types [...] Encounter - D. Lincoln Molenaar, MD - 02/13/2021 12:31 PM CST Orders placed SYSTEMS MAINTAINER Telephone Encounter - Hali Cormier MA - 02/13/2021 11:16 AM CST Patient came in for labs but was not fasting. Patient will be coming in tomorrow morning to have this drawn. Please replace orders for LIPID and Ha1C. SYSTEMS MAINTAINER documented in this encounter Plan of Treatment Not on filedocumented as of this encounter Goals Goal Patient Goal Associated Recent Patient-Stated? Author Type Problems Progress Routine Health General No change No Peter Ramesh (02/05/2021 Abbie Murray 11:19 AM TANK SYSTEMS MAINTAINER) RN Note: Formatting of this note is differe nt from the original. Routine Health Management Care Team Patient Care Team: Corrine Vazquez MD as PCP - General ([facility] Medicine) Yossi Potts, RN as Registered Nurse (Diabetes Education) Abbie Ramesh, RN as Apprentice Architect Future Scheduled Appointments No future appointments. [...] (02/05/2021 11:17 AM No Abbie Ramesh, RN TANK SYSTEMS MAINTAINER) Note: Formatting of this note is differe [...] (02/05/2021 No Abbie Ramesh RN 11:14 AM TANK SYSTEMS MAINTAINER) Note: Formatting of this note is differe [...] Results (ABNORMAL) Lipid panel (02/14/2021 9:30 AM TANK SYSTEMS MAINTAINER) P athologist Signature Cholesterol 237 (H) 0 - 199 02/14/2021 [facility] mg/dL 1:26 PM [facility] Comment: Recommended by National Cholesterol Education Program (ATP III) -------- Cholesterol Ranges -------- <200 ?Desirable 200-239 ? Borderline high >=240 ? High Triglycerides 285 (H) 0 - 149 mg/dL 02/14/2021 1:[address] [facility] Comment: -------- TRIG Ranges -------- <150 ?Normal 150-199 ? Borderline high 200-499 ? High >=500 ? Very high HDL 44 40 - 250 mg/dL 02/14/2021 1:26 PM [facility] Comment: -------- HDL Ranges -------- <40 ?Low 40-59 ?Normal >=60 ? Optimal LDL Calculated 136 (H) 0 - 99 mg/dL 02/14/2021 1:[address] [facility] Comment: -------- LDL Ranges -------- <100 ? Optimal 100-129 ?Near optimal/above op timal 130-159 ?Borderline high 160-189 ?High >=190 ?Very high Fasting? Yes 02/14/2021 9:[address] [facility] Specimen Anatomical Collection Method Collection Time Receive d Time (Source) Location / / Volume Laterality Blood 02/14/2021 9:30 AM TANK SYSTEMS MAINTAINER 12:48 PM TANK SYSTEMS MAINTAINER D. [place] Vazquez MD LAB BLOOD ORDERABLES Performing Organization Address City/State/ZIP Code Phon e Number [facility] [address] [place] [address] (ABNORMAL) Hemoglobin A1c (02/14/2021 9:30 AM TANK SYSTEMS MAINTAINER) Analysis Performed At [facility] Signature Hemoglobin A1C 8.6 (H) 4.0 - 5.6 02/14/2021 [facility] % A1C 6:49 PM [facility] Comment: Reference Range 4.0-5.6% is [...] 02/14/2021 9:30 AM 02/15/20 21 6:20 Venous) TANK SYSTEMS MAINTAINER PM TANK SYSTEMS MAINTAINER D. [place] Vazquez MD LAB BLOOD ORDERABLES Performing Organization Address City/State/ZIP Code Phon e Number [facility] [address] [place] [address] (ABNORMAL) Basic metabolic panel (02/14/2021 9:30 AM [facility] Analysis Performed At [facility] Signature Sodium 137 135 - 145 02/14/2021 [facility] mEq/L 1:26 PM [facility] Potassium 3.8 3.5 - 5.1 02/14/2021 [facility] mEq/L 1:26 PM [facility] Chloride 103 98 - 107 02/14/2021 [facility] mEq/L 1:26 PM [facility] CO2 25 22 - 29 02/14/2021 [facility] mmol/L 1:26 PM [facility] Creatinine 1.5 (H) 0.4 - 1.2 02/14/2021 [facility] mg/dL 1:26 PM [facility] BUN 28 (H) 5 - 25 02/14/2021 [facility] mg/dL 1:26 PM [facility] Glucose 169 (H) 70 - 100 02/14/2021 [facility] mg/dL 1:26 PM [facility] Calcium, 9.3 8.4 - 10.2 02/14/2021 [facility] Total,S mg/dL 1:26 PM TANK SYSTEMS MAINTAINER [facility] Specimen Anatomical Collection Method Collection Time Receive d Time (Source) Location / / Volume Laterality Blood 02/14/2021 9:30 AM TANK SYSTEMS MAINTAINER 12:48 PM TANK SYSTEMS MAINTAINER Corrine Vazquez MD LAB BLOOD ORDERABLES Performing Organization Address City/State/ZIP Code Phon e Number [facility] [address] [place] [address] documented in this encounter Visit Diagnoses Diagnosis Screening for deficiency anemia - Primar y Screening for other and unspecified defi ciency anemia Type 2 diabetes mellitus without complic ation, with long-term current use of insulin (HCC) Mixed hyperlipidemia documented in this encounter Care Teams Front Desk Specialist Relationship Specialty Start Date End Date Corrine Vazquez MD PCP - General Family Medicine 07/07/19 08/19/[address] [place] [address] documented as of this encounter
--- OUTSIDE RECORDS SUMMARY | 2022-01-21 14:00 | XMS_ITS | Encounter Summary ---
:1945 Author Organization [facility] Address [address] [place] [address] Care Team Providers Name Role Phone Corrine Vazquez MD Primary Care Provider Reason for Visit Reason Onset Date Comments med refill 03/13/2021 Encounter Details Date Type Department Care Team Description 03/13/2021 Telephone [place] Corrine Vazquez MD med refill [address] [place], [place] [address] [place], [place] [phone] (Wo rk) Social History Tobacco Use Types [...] Rx faxed to [facility], Pt notified. ACT CENTER CONSULTANT Telephone Encounter - Margareth Sanchez RN - 03/13/2021 11:10 AM CST Please fax Rx to [facility]. ACT CENTER CONSULTANT Telephone Encounter - Corrine Vazquez MD - 03/13/2021 11:03 AM CST You can fax the Rx for Xanax to her pharmacy. ACT CENTER CONSULTANT Telephone Encounter - Maryse Coker - 03/13/2021 10:13 AM CST Pt is requesting a refill of Xanax. She would like this to go to [facility] in [place]. Thanks. ACT CENTER CONSULTANT documented in this encounter Plan of Treatment Not on filedocumented as of this encounter Goals Goal Patient Goal Associated Recent Patient-Stated? Author Type Problems Progress Routine Health General No change No Peter Ramesh (02/05/2021 Abbie Murray, 11:19 AM CONTACT CENTER CONSULTANT) RN Note: Formatting of this note is differe nt from the original. Routine Health Management Care Team Patient Care Team: Corrine Vazquez MD as PCP - General ([facility] Medicine) Yossi Potts, RN as Registered Nurse (Diabetes Education) Abbie Ramesh RN as Wine Consultant Future Scheduled Appointments No future appointments. [...] (02/05/2021 11:17 AM No Abbie Ramesh RN CONTACT CENTER CONSULTANT) Note: Formatting of this note is [...] (02/05/2021 No Abbie Ramesh RN 11:14 AM CONTACT CENTER CONSULTANT) Note: Formatting of this note is differe nt from the original. Cardiovascular Management Essential hypertension Chronic coronary artery disease Managed by (PCP; Cardiology; [facility]) Dr. Ronak lozoya MD [...] unspecified documented in this encounter Care Teams Credit And Collections Representative Relationship Specialty Start Date End Date Corrine Vazquez MD PCP - General Family Medicine 07/07/19 08/19/[address] [place] [address] documented as of this encounter
--- OUTSIDE RECORDS SUMMARY | 2022-01-21 14:00 | XMS_ITS | Encounter Summary ---
:1945 Author Organization [facility] Address [address] [place] [address] Care Team Providers Name Role Phone Corrine Vazquez MD Primary Care Provider Reason for Visit Reason Onset Date Comments med question 03/15/2021 Encounter Details Date Type Department Care Team Description 03/15/2021 Telephone [place] Corrine Vazquez MD med question [address] [place], [place] [address] [place], [place] [phone] (Wo rk) Social History Tobacco Use Types [...] this time. She will start the hydrochlorothiazide. O EXCAVATION OPERATOR Telephone Encounter - Corrine Vazquez MD [...] as having a reaction to the amlodipine. O EXCAVATION OPERATOR Telephone Encounter - Margareth Sanchez RN - 03/15/2021 2:57 PM CST Patient stated she was on Amlodipine earlier this year and she felt terrible on it, she said she wasso fatigued, she could barely walk, she saw a drier operator because she thought something was wrong with her heart. When she stopped the Amlodipine she felt better within 2 days. She wonders if there edmond different medication she can take for her BP. She did say she hasn't started the hydrochlorothiazide because she is scheduled for an EGD Thursday and she doesn't want to start anything prior to that procedure. Please advise. O EXCAVATION OPERATOR Telephone Encounter - Margareth Sanchez RN - 03/15/2021 1:59 PM CST LMTC to discuss medications. O EXCAVATION OPERATOR Telephone Encounter - Brenda House - 03/15/2021 12:01 PM CST Pt has questions about amlodipine. Pt thinks that she is not suppose to be taking. O EXCAVATION OPERATOR documented in this encounter Plan of Treatment Not on filedocumented as of this encounter Goals Goal Patient Goal Associated Recent Patient-Stated? Author Type Problems Progress Routine Health General No change Peter Moznon (02/05/2021 Abbie Murray 11:19 AM HYDRO EXCAVATION OPERATOR) RN Note: Formatting of this note is differe nt from the original. Routine Health Management Care Team Patient Care Team: Corrine Vazquez MD as PCP - General ([facility] Medicine) Yossi Potts, RN as Registered Nurse (Diabetes Education) Abbie Ramesh, RN as Pewter Caster Future Scheduled Appointments No future appointments. Health [...] change (02/05/2021 11:17 AM Abbie Monzon, RN HYDRO EXCAVATION OPERATOR) Note: Formatting of this note is [...] track (02/05/2021 Abbie Monzon RN 11:14 AM HYDRO EXCAVATION OPERATOR) Note: Formatting of this note is [...] on filedocumented in this encounter Care Teams Histology Technologist Relationship Specialty Start Date End Date Corrine Vazquez MD PCP - General Family Medicine 07/07/19 08/19/[address] [place] [address] documented as of this encounter
--- OUTSIDE RECORDS SUMMARY | 2022-01-21 14:00 | XMS_ITS | Encounter Summary ---
:1945 Author Organization [facility] Address [address] [place] [address] Care Team Providers Name Role Phone Corrine [...] Vazquez MD Care Coordination [address] [place] [address] [place], [place] [phone] Referral ID Status Reason Start Date Expiration Date Visits V isits Requested Authorized [id number] Closed Specialty 02/21/2020 03/18/2021 99 99 Services Required Encounter Details Date Type Department Care Team Description 02/05/2021 Patient Outreach SE Care Coordination Abbie Ramesh Counseling and coordination of care (Primary Dx); [address] [place] [address] Terri RN Type 2 diabetes mellitus with other spec ified complication, with long-term current use of insulin (HCC); [place] [address] [address] Essential hypertension; [phone] [facility] Rheumatoid arthritis, involving unspecif ied site, unspecified whether rheumatoid factor present (HCC) [place] [address] Social History Tobacco Use Types [...] Pended. Patient aware. Will get drawn after [place] ?? Routine Health Management ?? Follow-up plan: ?? Monthly or sooner if needed Items for Provider to address: ??? Pended labs Goals Today 12/11/20 11/02/20 07/20/20 06/22/20 General ??? Cardiovascular Management On track On track On track On track Cardiovascular Management Essential hypertension Chronic coronary artery disease Managed by (PCP; Cardiology; [facility]) Dr. Taylor MD (PCP)/Dr. Tena [...] Nurse (Diabetes Education) Abbie Ramesh RN as Reference Assistant Future Scheduled Appointments No future appointments. Health Maintenance Health Maintenance Topic Date Due ??? Urine Protein Screening 05/31/2020 ??? Lipid Panel 09/05/2020 ??? Glaucoma Screening 67+ Yr 12/25/2020 ??? Ophthalmology Exam 12/25/2020 [place]?? [facility] [place]12[place] ??? Hemoglobin A1C 01/24/2021 [...] ??? AWV ??? A1C ??? Lipid panel WAITRESS documented in this encounter Plan of Treatment Not on filedocumented as of this encounter Goals Goal Patient Goal Associated Recent Patient-Stated? Author Type Problems Progress Routine Health General No change No Domitila Management (02/05/2021 Abbie Murray, 11:19 AM HEADWAITRESS) RN Note: Formatting of this note is differe nt from the original. Routine Health Management Care Team Patient Care Team: Corrine Vazquez MD as PCP - General ([facility]) Yossi Potts RN as Registered Nurse (Diabetes Education) Abbie Ramesh RN as Reference Assistant Future Scheduled Appointments No future appointments. [...] change (02/05/2021 11:17 AM Abbie Monzon, RN HEADWAITRESS) Note: Formatting of this note is differe [...] (02/05/2021 No Abbie Ramesh RN 11:14 AM HEADWAITRESS) Note: Formatting of this note is differe [...] (HCC) documented in this encounter Care Teams Mine Equipment Design Engineer Relationship Specialty Start Date End Date Corrine Vazquez MD PCP - General Family Medicine 07/07/19 08/19/[address] [place] [address] documented as of this encounter
--- OUTSIDE RECORDS SUMMARY | 2022-01-21 14:00 | XMS_ITS | Encounter Summary ---
:1945 Author Organization [facility] Address [address] [place] [address] Care Team Providers Name Role Phone Corrine Vazquez MD Primary Care Provider Reason for Visit Reason Onset Date Comments prescription location change 12/12/2020 Encounter Details Date Type Department Care Team Description 12/12/2020 Telephone [place] Corrine Vazquez prescription location [address] [address] [place] change [place], [place] [address] [phone] [place] [address] Social History Tobacco Use Types Packs/Day Years [...] strips and lancets refilled. The pharmacy in [place] she had been using is closing. Pt would like these sent to [facility] now. Please call Pt at [phone] to advise. documented in this encounter Plan of Treatment Not on filedocumented as of this encounter Goals Goal Patient Goal Associated Recent Patient-Stated? Author Type Problems Progress Routine Health General No change No Domitila, Management (02/05/2021 Abbie Murray, 11:19 AM PLATE SENSITIZER) RN Note: Formatting of this note is differe nt from the original. Routine Health Management Care Team Patient Care Team: Corrine Vazquez MD as PCP - General ([facility]) Yossi Potts, RN as Registered Nurse (Diabetes Education) Abbie Ramesh RN as Biology Laboratory Assistant Future Scheduled Appointments No future appointments. [...] (02/05/2021 11:17 AM No Abbie Ramesh, RN PLATE SENSITIZER) Note: Formatting of this note is differe [...] (02/05/2021 No Abbie Ramesh RN 11:14 AM PLATE SENSITIZER) Note: Formatting of this note is differe [...] Primary documented in this encounter Care Teams Milk Route Deliverer Relationship Specialty Start Date End Date Corrine Vazquez MD PCP - General Family Medicine 07/07/19 08/19/[address] [place] [address] documented as of this encounter
--- OUTSIDE RECORDS SUMMARY | 2022-01-21 14:00 | XMS_ITS | Encounter Summary ---
:[address] [facility] Address [address] [place] [address] Care Team Providers Name Role Phone Corrine Vazquez MD Primary Care Provider Reason for Visit Reason Onset Date Comments a1c meter 04/05/2021 Encounter Details Date Type Department Care Team Description 04/05/2021 Telephone [place] Corrine Vazquez MD a1c meter [address] [place], [place] [address] [place], [place] [phone] (Wo rk) Social History Tobacco Use Types [...] LPN - 04/05/2021 10:51 AM CST Noted INSPECTOR AND SORTER Telephone Encounter - Luciana Albarado - 04/05/2021 10:25 AM CST Rx faxed to [facility]. INSPECTOR AND SORTER Telephone Encounter - Jovanna Swartz RN - 04/05/2021 9:51 AM CST Please fax Rx to [facility]. Thank you. INSPECTOR AND SORTER Telephone Encounter - Corrine Vazquez MD - 04/05/2021 9:19 AM CST You can fax the order for her glucometer to her pharmacy. INSPECTOR AND SORTER Telephone Encounter - Lana Knight LPN - 04/05/2021 9:11 AM CST Contour Next Meter INSPECTOR AND SORTER Telephone Encounter - Clyde Hale - 04/05/2021 8:32 AM CST Pt called to request a new A1c meter(does not need testing strips)plz call pt if you have questions INSPECTOR AND SORTER documented in this encounter Plan of Treatment Not on filedocumented as of this encounter Goals Goal Patient Goal Associated Recent Patient-Stated? Author Type Problems Progress Routine Health General No change No Domitila, Management (02/05/2021 Abbie Murray, 11:19 AM HIDE INSPECTOR AND SORTER) RN Note: Formatting of this note is differe nt from the original. Routine Health Management Care Team Patient Care Team: Corrine Vazquez MD as PCP - General ([facility] Medicine) Yossi Potts, RN as Registered Nurse (Diabetes Education) Abbie Ramesh RN as Survey And Mapping Technician Future Scheduled Appointments No future appointments. [...] 11:17 AM No Abbie Ramesh, RN HIDE INSPECTOR AND SORTER) Note: Formatting of this note is [...] track (02/05/2021 Abbie Monzon RN 11:14 AM HIDE INSPECTOR AND SORTER) Note: Formatting of this note is differe nt from the original. Cardiovascular Management Essential hypertension Chronic coronary artery disease Managed by (PCP; Cardiology; [facility]) Dr. Ronak lozoya MD (PCP)/Dr. Tena [...] Primary documented in this encounter Care Teams Communications Assistant Relationship Specialty Start Date End Date Corrine Vazquez MD PCP - General Family Medicine 07/07/19 08/19/[address] [place] [address] documented as of this encounter
--- OUTSIDE RECORDS SUMMARY | 2022-01-21 14:00 | XMS_ITS | Encounter Summary ---
:1945 Author Organization [facility] Address [address] [place] [address] Care Team Providers Name Role Phone Corrine Vazquez MD Primary Care Provider Encounter Details Date Type Department Care Team Description 02/13/2021 Lab [place] Type 2 diabetes mellitus wit h other specified complication, with long-term current use of insulin (HCC); [address] Type 2 diabetes mellitus wit hout complication, with long-term current use of insulin (HCC) [place], [place] [address] Social History Tobacco Use [...] General No change No Domitila, Management (02/05/2021 Abibe Murray, 11:19 AM IMPRESSION PRINTER) RN Note: Formatting of this note is differe nt from the original. Routine Health Management Care Team Patient Care Team: Corrine Vazquez MD as PCP - General ([facility] Medicine) Yossi Potts, RN as Registered Nurse (Diabetes Education) Abbie Ramesh, ERA as Software Developer Intern Future Scheduled Appointments No future appointments. [...] (02/05/2021 11:17 AM No Abbie Ramesh, RN IMPRESSION PRINTER) Note: Formatting of this note is differe [...] track (02/05/2021 Abbie Monzon RN 11:14 AM IMPRESSION PRINTER) Note: Formatting of this note is differe [...] (HCC) documented in this encounter Care Teams Market Research Executive Relationship Specialty Start Date End Date Corrine Vazquez MD PCP - General Family Medicine 07/07/19 08/19/[address] [place] [address] documented as of this encounter
--- OUTSIDE RECORDS SUMMARY | 2022-01-21 14:01 | XMS_ITS | Encounter Summary ---
:1945 Author Organization [facility] Address [address] [place] [address] Care Team Providers Name Role Phone Corrine Vazquez MD Primary Care Provider Reason for Visit Reason Comments Skin tags Encounter Details Date Type Department Care Team Description 10/08/2020 Office Visit [place] Corrine Vazquez Skin lesion (Primary Dx); [address] [place] Skin tag; [place], [place] [address] Asymptomatic varicose veins of both lower extremities [phone] [place] [address] Social History Tobacco Use Types Packs/Day Years [...] Peter Monzon (02/05/2021 Abbie Murray, 11:19 AM MECHATRONICS TECHNICIAN) RN Note: Formatting of this note is differe nt from the original. Routine Health Management Care Team Patient Care Team: Corrine Vazquez MD as PCP - General ([facility] Medicine) Yossi Potts RN as Registered Nurse (Diabetes Education) Abbie Ramesh, RN as Gear Cutting Machine Set Up Operator Future Scheduled Appointments [...] change (02/05/2021 11:17 AM Abbie Monzon, RN MECHATRONICS TECHNICIAN) Note: Formatting of this note is [...] track (02/05/2021 Abbie Monzon RN 11:14 AM MECHATRONICS TECHNICIAN) Note: Formatting of this note is [...] extremities documented in this encounter Care Teams Secondary Market Manager Relationship Specialty Start Date End Date Corrine Vazquez MD PCP - General Family Medicine 07/07/19 08/19/[address] [place] [address] documented as of this encounter
--- OUTSIDE RECORDS SUMMARY | 2022-01-21 14:01 | XMS_ITS | Encounter Summary ---
:1945 Author Organization [facility] Address [address] [place] [address] Care Team Providers Name Role Phone Corrine Vazquez MD Primary Care Provider Reason for Visit Reason Onset Date Comments yeast inf Rx 06/22/2020 Encounter Details Date Type Department Care Team Description 06/22/2020 Telephone [place] Antonio Madsen MD yeast inf Rx [address] [place], [place] [address] [place], [place] [phone] [address] (Wo rk) Social History Tobacco Use Types [...] uses [facility]. Please call Pt [phone] to advise. documented in this encounter Plan of Treatment Not on filedocumented as of this encounter Goals Goal Patient Goal Associated Recent Patient-Stated? Author Type Problems Progress Routine Health General No change Peter Monzon (02/05/2021 Abbie Murray, 11:19 AM VETERINARY SURGEON) RN Note: Formatting of this note is differe nt from the original. Routine Health Management Care Team Patient Care Team: Corrine Vazquez MD as PCP - General ([facility] Yossi Potts, RN as Registered Nurse (Diabetes Education) Abbie Ramesh, RN as Harness Puller Future Scheduled Appointments No future appointments. Health Maintenance Health Maintenance Topic Date Due Urine Protein Screening 05/31/2020 Lipid Panel 09/05/2020 Glaucoma Screening 67+ Yr 12/25/2020 Ophthalmology Exam 12/25/2020 [facility] [place]/12/2021 Hemoglobin A1C 01/24/2021 Diabetic Foot Exam 03/16/2021 Colorectal Cancer Screening: Colonoscop y 05/21/2021 Fall Risk Performed 06/05/2021 Mammogram 12/03/2021 COVID-19 Vaccine Completed [facility] Pneumococcal Vaccine: <64 Completed [facility] Pneumococcal Vaccine: 65+ Years Com pleted HPV Vaccines Aged Out Notes: Due: Urine Protein screening Eye exam AWV A1C Lipid panel Diabetes Management General No change (02/05/2021 11:17 AM No Roschen, Abbie J, RN VETERINARY SURGEON) Note: Formatting of this note is differe [...] (02/05/2021 No Abbie Ramesh, RN 11:14 AM VETERINARY SURGEON) Note: Formatting of this note is differe nt from the original. Cardiovascular Management Essential hypertension Chronic coronary artery disease Managed by (PCP; Cardiology; [facility]) Dr. Ronak lozoya MD [...] Primary documented in this encounter Care Teams Farmworker Animal Relationship Specialty Start Date End Date Corrine Vazquez MD PCP - General Family Medicine 07/07/19 08/19/21 [address] [place] [address] documented as of this encounter
--- OUTSIDE RECORDS SUMMARY | 2022-01-21 14:01 | XMS_ITS | Encounter Summary ---
:1945 Author Organization [facility] Address [address] [place] [address] Care Team Providers Name Role Phone Corrine Vazquez MD Primary Care Provider Encounter Details Date Type Department Care Team Description 06/15/2020 Lab [place] Dizziness; [address] Chronic diarrhea; [place], [place] [address] Type 2 diabetes mellitus wit hout complication, with long-term current use of insulin (HCC); [phone] Type 2 diabetes mellitus with other specified [...] Peter Ramesh (02/05/2021 Abbie Murray, 11:19 AM COMMERCIAL CENTER MANAGER) RN Note: Formatting of this note is differe nt from the original. Routine Health Management Care Team Patient Care Team: Corrine Vazquez MD as PCP - General ([facility] Medicine) Yossi Potts, RN as Registered Nurse (Diabetes Education) Abbie Ramesh, ERA as Head Librarian Future Scheduled Appointments No future appointments. [...] change (02/05/2021 11:17 AM Abbie Monzon, RN COMMERCIAL CENTER MANAGER) Note: Formatting of this note is [...] (02/05/2021 No Abbie Ramesh RN 11:14 AM COMMERCIAL CENTER MANAGER) Note: Formatting of this note is [...] P athologist Signature Tiss.Transglut <1.2 <4.0 06/19/2020 [facility] aminase Ab, S (Negative) 6:51 AM CDT LABORATORIES (IgA) U/mL Comment: Test Performed by: [facility] [address] [place], [place] [address] Home Appliances Mechanic: Pradeep Parikh M.D. Ph. D.; CLIA# [id number] (IgA) Specimen Anatomical Collection Method Collection Time Receive d Time (Source) Location / / Volume Laterality 06/15/2020 9:16 AM 1 2:34 CDT PM CDT Antonio Madsen MD LAB BLOOD ORDERABLES Performing Organization Address City/State/ZIP Code Phon e Number [facility] see result attachment for specific address (ABNORMAL) Hemoglobin A1c (06/15/2020 9:16 AM CDT) Analysis Performed At Patho logist Time Signature Hemoglobin A1C 8.4 (H) 4.0 - 5.6 06/15/2020 [place] % A1C 2:03 PM CDT [facility] Comment: Reference Range 4.0-5.6% is [...] City/State/ZIP Code Phon e Number [facility] [address] [place] [address] Celiac Disease Serology [place] (06/15/2020 9:16 AM CDT) Patholo gist Method Time Signature Immunoglobulin A 313 61 - 356 06/18/2020 [facility] (IgA) mg/dL 10:15 PM CDT LABORATORIES Interpretation - 06/18/2020 [facility] 10:15 PM CDT LABORATORIES Comment: Negative serology. Celiac disease unlike ly. However, approximately 10% of patients with casimiro c disease are seronegative. Also, patients who are alr claude adhering to a gluten-free diet may be seronegative. If celiac disease is highly clinically suspected, consider HL A-DQ typing. Test Performed by: [facility] [address] [address] [address] Appl[address] Mechanic: Pradeep Parikh M.D. Ph. D.; CLIA# [id number] Specimen Anatomical Collection Method Collection Time Receive d Time (Source) Location / / Volume Laterality Blood 06/15/2020 9:16 AM 2:34 CDT PM CDT Antonio Madsen MD LAB BLOOD ORDERABLES Performing Organization Address City/State/ZIP Code Phon e Number [facility] see result attachment for specific address Vitamin B12 (06/15/2020 9:16 AM CDT) athologist Signature Vitamin B-12 737 239 - 231 06/15/2020 [facility] pg/mL [...] City/State/ZIP Code Phon e Number [facility] [address] [place] [address] documented in this encounter Visit Diagnoses Diagnosis Dizziness Dizziness and giddiness Chronic diarrhea Diarrhea Type 2 diabetes mellitus without complic ation, with long-term current use of insulin (HCC) Type 2 diabetes mellitus with other spec ified complication, with long-term current use of insulin (HCC) documented in this encounter Care Teams Helminthology Teacher Relationship Specialty Start Date End Date Corrine Vazquez MD PCP - General Family Medicine 07/07/19 08/19/[address] [place] [address] documented as of this encounter
--- OUTSIDE RECORDS SUMMARY | 2022-01-21 14:01 | XMS_ITS | Encounter Summary ---
:1945 Author Organization [facility] Address [address] [place] [address] Care Team Providers Name Role Phone Corrine Vazquez MD Primary Care Provider Encounter Details Date Type Department Care Team Description 07/29/2020 Orders Only [place] Corrine Vazquez MD [address] [facility] [address] [place], [place] [address] [place], [place] [phone] (Wo rk) Social History Tobacco Use Types [...] Domitila, Management (02/05/2021 Abbie Murray, 11:19 AM INFLATED PAD BUFFER) RN Note: Formatting of this note is differe nt from the original. Routine Health Management Care Team Patient Care Team: Corrine Vazquez MD as PCP - General ([facility] Medicine) Yossi Potts, RN as Registered Nurse (Diabetes Education) Abbie Ramesh, RN as Computer System Validation Specialist Future Scheduled Appointments No future appointments. [...] (02/05/2021 11:17 AM No Abbie Ramesh, RN INFLATED PAD BUFFER) Note: Formatting of this note is [...] track (02/05/2021 Abbie Monzon RN 11:14 AM INFLATED PAD BUFFER) Note: Formatting of this note is [...] on filedocumented in this encounter Care Teams Endoscopy Rn Relationship Specialty Start Date End Date Corrine Vazquez MD PCP - General Family Medicine 07/07/19 08/19/[address] [place] [address] documented as of this encounter
--- OUTSIDE RECORDS SUMMARY | 2022-01-21 14:01 | XMS_ITS | Encounter Summary ---
:1945 Author Organization [facility] Address [address] [place] [address] Care Team Providers Name Role Phone Corrine [...] Vazquez MD Care Coordination [address] [facility] [address] [place] [address] [place], [place] [phone] Referral ID Status Reason Start Date Expiration Date Visits V isits Requested Authorized [id number] Closed Specialty 02/21/2020 03/18/2021 99 99 Services Required Encounter Details Date Type Department Care Team Description 09/07/2020 Patient Outreach SE Care Coordination Abbie Ramesh Counseling and coordination of care (Primary Dx); [address] [place] [address] Terri RN Type 2 diabetes mellitus with other spec ified complication, with long-term current use of insulin (HCC) [place] [address] [address] [facility] [phone] [place] [address] Social History Tobacco Use Types [...] 12/23/2018 organizations such as amish groups, unions, [employer] or athletic groups, or school groups? How [...] Peter Monzon (02/05/2021 Abbie Murray, 11:19 AM LOG SORTER) RN Note: Formatting of this note is differe nt from the original. Routine Health Management Care Team Patient Care Team: Corrine Vazquez MD as PCP - General ([facility]) Yossi Potts RN as Registered Nurse (Diabetes Education) Abbie Ramesh RN as Nursery School Teacher Future Scheduled Appointments No future appointments. Health Maintenance Health Maintenance Topic Date Due Urine Protein Screening 05/31/2020 Lipid Panel 09/05/2020 Glaucoma Screening 67+ Yr 12/25/2020 Ophthalmology Exam 12/25/2020 [facility] Annual Wellness 01/12/2021 Hemoglobin A1C 01/24/2021 Diabetic Foot Exam 03/16/2021 Colorectal Cancer Screening: Colonoscop y 05/21/2021 Fall Risk Performed 06/05/2021 Mammogram 12/03/2021 COVID-19 Vaccine Completed [facility] Pneumococcal Vaccine: <64 Completed [facility] Pneumococcal Vaccine: 65+ Years Com pleted HPV Vaccines Aged Out Notes: Due: Urine Protein screening Eye exam AWV A1C Lipid panel Diabetes Management General No change (02/05/2021 11:17 AM No Abbie Ramesh, RN LOG SORTER) Note: Formatting of this note is [...] (02/05/2021 No Abbie Ramesh, RN 11:14 AM LOG SORTER) Note: Formatting of this note is differe nt from the original. Cardiovascular Management Essential hypertension Chronic coronary artery disease Managed by (PCP; Cardiology; [facility]) Dr. Ronak lozoya MD [...] (HCC) documented in this encounter Care Teams Mailroom Supervisor Relationship Specialty Start Date End Date Corrine Vazquez MD PCP - General Family Medicine 07/07/19 08/19/[address] [place] [address] documented as of this encounter
--- OUTSIDE RECORDS SUMMARY | 2022-01-21 14:01 | XMS_ITS | Encounter Summary ---
:1945 Author Organization [facility] Address [address] [place] [address] Care Team Providers Name Role Phone Corrine Vazquez MD Primary Care Provider Reason for Visit Reason Onset Date Comments med refill 12/05/2020 Encounter Details Date Type Department Care Team Description 12/05/2020 Telephone [place] Corrine Vazquez MD med refill [address] [place], [place] [address] [place], [place] [phone] (Wo rk) Social History Tobacco Use Types [...] The patient's Rx request were filled at [facility]. Telephone Encounter - Sherice Laura - 12/05/2020 11:01 AM CDT Patient needs a refill on her thyroid med and lantus pens. Send to [facility]. documented in this encounter Plan of Treatment Not on filedocumented as of this encounter Goals Goal Patient Goal Associated Recent Patient-Stated? Author Type Problems Progress Routine Health General No change Hailee Ramesh, Management (02/05/2021 Abbie Murray, 11:19 AM LABOURERS) RN Note: Formatting of this note is differe nt from the original. Routine Health Management Care Team Patient Care Team: Corrine Vazquez MD as PCP - General ([facility]) Yossi Potts, RN as Registered Nurse (Diabetes Education) Abbie Ramesh, RN as Commercial Housekeeper Future Scheduled Appointments No future appointments. Health [...] change (02/05/2021 11:17 AM Abbie Monzon, RN LABOURERS) Note: Formatting of this note is differe [...] (02/05/2021 No Abbie Ramesh RN 11:14 AM LABOURERS) Note: Formatting of this note is differe [...] (HCC) documented in this encounter Care Teams Filling And Stapling Machine Operator Relationship Specialty Start Date End Date Corrine Vazquez MD PCP - General Family Medicine 07/07/19 08/19/[address] [place] [address] documented as of this encounter
--- OUTSIDE RECORDS SUMMARY | 2022-01-21 14:01 | XMS_ITS | Encounter Summary ---
:1945 Author Organization [facility] Address [address] [place] [address] Care Team Providers Name Role Phone Corrine Vazquez MD Primary Care Provider Reason for Visit Reason Onset Date Comments Med Refill 10/17/2020 Encounter Details Date Type Department Care Team Description 10/17/2020 Refill [place] Corrine Vazquez, Type 2 diabetes mellitus [address] [facility] 20 [place] without complication, [place], [place] [address] with long-term current [phone] [place], [place] use of insu [place] ([facility]) [phone] (Primary Dx) Social History Tobacco Use Types [...] day Labs:Contains abnormal data Hemoglobin A1c Order: [id number] (suggestion) Information displayed in this report will [...] be discussed with healthcare provider. Resulting Agency [facility] Specimen Collected: 07/25/20 14:13 Last Resulted: 07/25/20 14:31 Received From: [facility] Result Received: 09/07/20 12:06 Vitals: BP Readings from Last 2 Encounters: 10/08/20 120/80 06/19/20 120/60 documented in this encounter Plan of Treatment Not on filedocumented as of this encounter Goals Goal Patient Goal Associated Recent Patient-Stated? Author Type Problems Progress Routine Health General No change No Domitila Management (02/05/2021 Abbie Murray, 11:19 AM NON MORSE INTERCEPT TECHNICIAN) RN Note: Formatting of this note is differe nt from the original. Routine Health Management Care Team Patient Care Team: Corrine Vazquez MD as PCP - General ([facility]) Yossi Potts, RN as Registered Nurse (Diabetes Education) Abbie Ramesh RN as Hand Welt Butter Future Scheduled Appointments No future appointments. Health Maintenance Health Maintenance Topic Date Due Urine Protein Screening 05/31/2020 Lipid Panel 09/05/2020 Glaucoma Screening 67+ Yr 12/25/2020 Ophthalmology Exam 12/25/2020 [facility] Annual Wellness 01/12/2021 Hemoglobin A1C 01/24/2021 Diabetic Foot Exam 03/16/2021 Colorectal Cancer Screening: Colonoscop y 05/21/2021 Fall Risk Performed 06/05/2021 Mammogram 12/03/2021 COVID-19 Vaccine Completed [facility] Pneumococcal Vaccine: <64 Completed [facility] Pneumococcal Vaccine: 65+ Years Com pleted HPV Vaccines Aged Out Notes: Due: Urine Protein screening Eye exam AWV A1C Lipid panel Diabetes Management General No change (02/05/2021 11:17 AM No Abbie Ramesh RN NON MORSE INTERCEPT TECHNICIAN) Note: Formatting of this note is [...] track (02/05/2021 Abbie Monzon RN 11:14 AM NON MORSE INTERCEPT TECHNICIAN) Note: Formatting of this note is differe nt from the original. Cardiovascular Management Essential hypertension Chronic coronary artery disease Managed by (PCP; Cardiology; [facility]) Dr. Ronak lozoya MD (PCP)/Dr. [...] Primary documented in this encounter Care Teams Floor Cashier Relationship Specialty Start Date End Date Corrine Vazquez MD PCP - General Family Medicine 07/07/19 08/19/21 [address] [place] [address] documented as of this encounter
--- OUTSIDE RECORDS SUMMARY | 2022-01-21 14:01 | XMS_ITS | Encounter Summary ---
:1945 Author Organization [facility] Address [address] [place] [address] Care Team Providers Name Role Phone Corrine Vazquez MD Primary Care Provider Reason for Visit Reason Onset Date Comments flu shot info 11/14/2020 Encounter Details Date Type Department Care Team Description 11/14/2020 Telephone [place] Corrine Vazquez MD flu shot info [address] [place], [place] [address] [place], [place] [phone] (Wo rk) Social History Tobacco Use Types [...] the live dose. Please call Pt at [phone] to advise, leaving a message if no answer. documented in this encounter Plan of Treatment Not on filedocumented as of this encounter Goals Goal Patient Goal Associated Recent Patient-Stated? Author Type Problems Progress Routine Health General No change Peter Monzon (02/05/2021 Abbie Murray, 11:19 AM ELECTRIC LIFT TRUCK DRIVER) RN Note: Formatting of this note is differe nt from the original. Routine Health Management Care Team Patient Care Team: Corrine Vazquez MD as [facility] - [facility] Yossi Potts, RN as Registered Nurse (Diabetes Education) Abbie Ramesh RN as Sewing Teacher Future Scheduled Appointments No future appointments. [...] [facility] Pneumococcal Vaccine: <64 Completed [facility] Pneumococcal Vaccine: 65+ Years Com pleted HPV Vaccines Aged Out Notes: Due: Urine Protein screening Eye exam AWV A1C Lipid panel Diabetes Management General No change (02/05/2021 11:17 AM Abbie Monzon, RN ELECTRIC LIFT TRUCK DRIVER) Note: Formatting of this note [...] track (02/05/2021 Abbie Monzon RN 11:14 AM ELECTRIC LIFT TRUCK DRIVER) Note: Formatting of this note is differe nt from the original. Cardiovascular Management Essential hypertension Chronic coronary artery disease Managed by (PCP; Cardiology; [facility]) Dr. Ronak lozoya MD [...] on filedocumented in this encounter Care Teams Wrecking Car Driver Relationship Specialty Start Date End Date Corrine Vazquez MD PCP - General Family Medicine 07/07/19 08/19/[address] [place] [address] documented as of this encounter
--- OUTSIDE RECORDS SUMMARY | 2022-01-21 14:01 | XMS_ITS | Encounter Summary ---
:1945 Author Organization [facility] Address [address] [place] [address] Care Team Providers Name Role Phone Adriane Patel Ronak COUNTY ADMINISTRATOR, SUBSTATION WIREMAN Primary Care Provider [phone] Encounter Details Date Type Department Care Team Description 07/27/2020 Telephone [place] Corrine Vazquez MD [address] [place], [place] [address] [place], [place] [phone] [address] (Wo rk) Social History Tobacco Use Types [...] Domitila, Management (02/05/2021 Abbie Murray, 11:19 AM UNDERWRITING MANAGER) RN Note: Formatting of this note is differe nt from the original. Routine Health Management Care Team Patient Care Team: Corrine Vazquez MD as PCP - General ([facility] Medicine) Yossi Potts, RN as Registered Nurse (Diabetes Education) Abbie Ramesh, ERA as Coat Joiner Lockstitch Future Scheduled Appointments No future appointments. Health [...] (02/05/2021 11:17 AM No Abbie Ramesh, RN UNDERWRITING MANAGER) Note: Formatting of this note is [...] track (02/05/2021 Abbie Monzon RN 11:14 AM UNDERWRITING MANAGER) Note: Formatting of this note is differe nt from the original. Cardiovascular Management Essential hypertension Chronic coronary artery disease Managed by (PCP; Cardiology; [facility]) Dr. Ronak lozoya MD (PCP)/Dr. [...] on filedocumented in this encounter Care Teams Global Compensation Analyst Relationship Specialty Start Date End Date Adriane Patel APRN, SUBSTATION WIREMAN PCP - General Family Medicine 08/20/21 [address] [place] [address] documented as of this encounter
--- OUTSIDE RECORDS SUMMARY | 2022-01-21 14:01 | XMS_ITS | Encounter Summary ---
:1945 Author Organization [facility] Address [address] [place] [address] Care Team Providers Name Role Phone Corrine Vazquez MD Primary Care Provider Reason for Visit Reason Comments Skin tag removal Encounter Details Date Type Department Care Team Description 11/09/2020 Office Visit [place] Corrine Vazquez Skin lesion (Primary Dx); [address] [place] Type 2 diabetes mellitus with other spec ified complication, with long-term current use of insulin (HCC); [place] [address] Anemia, unspecified type; [phone] [place] [address] Social History Tobacco Use Types Packs/Day Years [...] Ramesh (02/05/2021 Abbie Murray, 11:19 AM CERTIFIED RESPIRATORY THERAPIST) RN Note: Formatting of this note is differe nt from the original. Routine Health Management Care Team Patient Care Team: Corrine Vazquez MD as PCP - General ([facility]) Yossi Potts, RN as Registered Nurse (Diabetes Education) Abbie Ramesh RN as Scrapper Future Scheduled Appointments No future appointments. Health [...] (02/05/2021 11:17 AM No Abbie Ramesh RN CERTIFIED RESPIRATORY THERAPIST) Note: Formatting of this note is differe [...] (02/05/2021 No Abbie Ramesh RN 11:14 AM CERTIFIED RESPIRATORY THERAPIST) Note: Formatting of this note is differe nt from the original. Cardiovascular Management Essential hypertension Chronic coronary artery disease Managed by (PCP; Cardiology; [facility]) Dr. Ronak lozoya MD (PCP)/Dr. Tena [...] 2:51 PM 9:15 CDT AM CDT Narrative [facility] - 10/18 12:08 PM CDT ? [facility] ? [address] ?[place] [address] ? Patient: ?MARCIAL BAZAN ?Procedure: ? 11/09/2020 14:51 /Age/Sex: ??1945, 75 Y, F ?Received: ?11/12/2020 09:15 ? Accession #: ?? [id number] Billing: ?[id number] ? Patient [facility]: [facility] ? OFFICE [...] completely submitted in cassette A1. REGGIE Yoder ([facility]) CM Patient's identification labels match on requisition [...] e Number [facility] [address] [place] [address] documented in this encounter Visit Diagnoses Diagnosis [...] dose documented in this encounter Care Teams Balance Wheel Screw Hole Tapper Relationship Specialty Start Date End Date Corrine Vazquez MD PCP - General Family Medicine 07/07/19 08/19/[address] [place] [address] documented as of this encounter
--- OUTSIDE RECORDS SUMMARY | 2022-01-21 14:01 | XMS_ITS | Encounter Summary ---
:1945 Author Organization [facility] Address [address] [place] [address] Care Team Providers Name Role Phone Corrine Vazquez MD Primary Care Provider Encounter Details Date Type Department Care Team Description 11/22/2020 Orders Only [place] Corrine Vazquez MD [address] [facility] [address] [place], [place] [address] [place], [place] [phone] (Wo rk) Social History Tobacco Use Types [...] Domitila, Management (02/05/2021 Abbie Murray, 11:19 AM TAR DISTILLATION SUPERVISOR) RN Note: Formatting of this note is differe nt from the original. Routine Health Management Care Team Patient Care Team: Corrine Vazquez MD as PCP - General ([facility] Medicine) Yossi Potts, RN as Registered Nurse (Diabetes Education) Abbie Ramesh, RN as Internal Carver Future Scheduled Appointments No future appointments. Health [...] (02/05/2021 11:17 AM No Abbie Ramesh, RN TAR DISTILLATION SUPERVISOR) Note: Formatting of this note is [...] track (02/05/2021 Abbie Monzon RN 11:14 AM TAR DISTILLATION SUPERVISOR) Note: Formatting of this note is [...] on filedocumented in this encounter Care Teams Cafe Assistant Relationship Specialty Start Date End Date Corrine Vazquez MD PCP - General Family Medicine 07/07/19 08/19/[address] [place] [address] documented as of this encounter
--- OUTSIDE RECORDS SUMMARY | 2022-01-21 14:01 | XMS_ITS | Encounter Summary ---
:1945 Author Organization [facility] Address [address] [place] [address] Care Team Providers Name Role Phone Corrine Vazquez MD Primary Care Provider Reason for Referral Consultation (Routine) - Closed Specialty Diagnoses / Procedures Referred By Contact Refer red To Contact Diagnoses Early satiety Antonio Shipman MD [facility] [address] [place], [place] [address] [facility] [address] [place] [address] Fax: Referral ID Status Reason Start Date Expiration Date Visits Requ ested Visits Authorized [id number] Closed 12/06/2020 2021 1 1 Reason for Visit Reason Onset Date Comments endo 11/21/2020 Encounter Details Date Type Department Care Team Description 11/21/2020 Telephone [place] Corrine Vazquez MD [facility] [address] [facility] [address] [place], [place] [address] [place], [place] [phone] (Wo rk) Social History Tobacco Use Types [...] 12/23/2018 organizations such as catholic groups, unions, [employer] or athletic groups, or school groups? How [...] - 12/11/2020 2:56 PM CDT Spoke to Marcial. She has not heard anything from [facility] in [place] [facility] yet. CC called and spoke [facility] and was told there was no paperwork that was received recently for Marcial. Please re-fax the referral to [phone]. Thank you Telephone Encounter - Phoebe Donohue - 12/06/2020 3:24 PM CDT Referral faxed. Telephone Encounter - Margareth Sanchez RN - 12/06/2020 2:04 PM CDT Please fax orders to [facility] in [place]. Addendum Note - Antonio Shipman MD - [...] Peter Ramesh (02/05/2021 Abbie Murray, 11:19 AM REPRESENTATIVE GOVERNMENT RELATIONS) RN Note: Formatting of this note is differe nt from the original. Routine Health Management Care Team Patient Care Team: Corrine Vazquez MD as PCP - General ([facility]) Yossi Potts, RN as Registered Nurse (Diabetes Education) Abbie Ramesh RN as Supervisor Central Supply Future Scheduled Appointments No future appointments. Health Maintenance Health Maintenance Topic Date Due Urine Protein Screening 05/31/2020 Lipid Panel 09/05/2020 Glaucoma Screening 67+ Yr 12/25/2020 Ophthalmology Exam 12/25/2020 [facility] Annual Wellness 01/12/2021 Hemoglobin A1C 01/24/2021 Diabetic Foot Exam 03/16/2021 Colorectal Cancer Screening: Colonoscop y 05/21/2021 Fall Risk Performed 06/05/2021 Mammogram 12/03/2021 COVID-19 Vaccine Completed [facility] Pneumococcal Vaccine: <64 Completed [facility] Pneumococcal Vaccine: 65+ Years Com pleted HPV Vaccines Aged Out Notes: Due: Urine Protein screening Eye exam AWV A1C Lipid panel Diabetes Management General No change (02/05/2021 11:17 AM No Abbie Ramesh RN REPRESENTATIVE GOVERNMENT RELATIONS) Note: Formatting of this note is differe [...] (02/05/2021 No Abbie Ramesh RN 11:14 AM REPRESENTATIVE GOVERNMENT RELATIONS) Note: Formatting of this note is differe [...] Primary documented in this encounter Care Teams Biodiesel Plant Superintendent Relationship Specialty Start Date End Date Corrine Vazquez MD PCP - General Family Medicine 07/07/19 08/19/[address] [place] [address] documented as of this encounter
--- OUTSIDE RECORDS SUMMARY | 2022-01-21 14:01 | XMS_ITS | Encounter Summary ---
:1945 Author Organization [facility] Address [address] [place] [address] Care Team Providers Name Role Phone Corrine Vazquez MD Primary Care Provider Reason for Visit Reason Comments Follow-up lab results Encounter Details Date Type Department Care Team Description 06/19/2020 Office Visit [place] Antonio Madsen, Type 2 diabetes mellitus wit h other specified complication, with long-term current use of insulin (HCC) (Primary Dx); [address] [facility] Stage 3 chronic kidney disease, unspecif ied whether stage 3a or 3b CKD [place], [place] [address] [place] [address] [place], [place] [phone] [address] Social History Tobacco Use Types Packs/Day Years [...] basal insulin. Recommended follow up with her electrical controls technician about this. Terms of her other symptoms [...] Domitila, Management (02/05/2021 Abbie Murray, 11:19 AM CIVIL ENGINEERING PROFESSIONAL) RN Note: Formatting of this note is differe nt from the original. Routine Health Management Care Team Patient Care Team: Corrine Vazquez MD as PCP - General ([facility] Medicine) Yossi Potts, RN as Registered Nurse (Diabetes Education) Abbie Ramesh, RN as Monkey Keeper Future Scheduled Appointments No future appointments. Health [...] change (02/05/2021 11:17 AM Abbie Monzon, RN CIVIL ENGINEERING PROFESSIONAL) Note: Formatting of this note is [...] track (02/05/2021 Abbie Monzon RN 11:14 AM CIVIL ENGINEERING PROFESSIONAL) Note: Formatting of this note is [...] (HCC) documented in this encounter Care Teams Undercollar Maker Relationship Specialty Start Date End Date Corrine Vazquez MD PCP - General Family Medicine 07/07/19 08/19/[address] [place] [address] documented as of this encounter
--- OUTSIDE RECORDS SUMMARY | 2022-01-21 14:01 | XMS_ITS | Encounter Summary ---
:1945 Author Organization [facility] Address [address] [place] [address] Care Team Providers Name Role Phone Corrine [...] No change Hailee Ramesh, Management (02/05/2021 Abbie Mruray, 11:19 AM PLASTER MECHANIC) RN Note: Formatting of this note is differe nt from the original. Routine Health Management Care Team Patient Care Team: Corrine Vazquez MD as PCP - General ([facility] Medicine) Yossi Potts, RN as Registered Nurse (Diabetes Education) Abbie Ramesh, RN as Security Assurance Analyst Future Scheduled Appointments No future [...] [facility] Pneumococcal Vaccine: <64 Completed [facility] Pneumococcal Vaccine: 65+ Years Com pleted HPV Vaccines Aged Out Notes: Due: Urine Protein screening Eye exam AWV A1C Lipid panel Diabetes Management General No change (02/05/2021 11:17 AM No Abbie Ramesh, RN PLASTER MECHANIC) Note: Formatting of this note is [...] track (02/05/2021 Abbie Monzon RN 11:14 AM PLASTER MECHANIC) Note: Formatting of this note is [...] on filedocumented in this encounter Care Teams Explosives Handler Relationship Specialty Start Date End Date Corrine Vazquez MD PCP - General Family Medicine 07/07/19 08/19/[address] [place] [address] documented as of this encounter
--- OUTSIDE RECORDS SUMMARY | 2022-01-21 14:01 | XMS_ITS | Encounter Summary ---
:1945 Author Organization [facility] Address [address] [place] [address] Care Team Providers Name Role Phone Corrine Vazquez MD Primary Care Provider Encounter Details Date Type Department Care Team Description 08/30/2020 Refill [place] Corrine Vazquez, Type 2 diabetes mellitus [address] MD with other specified [place], [place] [address] [facility], without [phone] [place] [address] insulin ([facility]) Social History Tobacco Use Types Packs/Day Years [...] Domitila, Management (02/05/2021 Abbie Murray, 11:19 AM METAL LEAF LAYER) RN Note: Formatting of this note is differe nt from the original. Routine Health Management Care Team Patient Care Team: Corrine Vazquez MD as [facility] - [facility] Yossi Potts RN as Registered Nurse (Diabetes Education) Abbie Ramesh RN as Disassembler Product Future Scheduled Appointments No future appointments. Health [...] (02/05/2021 11:17 AM No Abbie Ramesh, RN METAL LEAF LAYER) Note: Formatting of this note is [...] (02/05/2021 No Abbie Ramesh RN 11:14 AM METAL LEAF LAYER) Note: Formatting of this note is [...] (HCC) documented in this encounter Care Teams Home Insurance Agent Relationship Specialty Start Date End Date Corrine Vazquez MD PCP - General Family Medicine 07/07/19 08/19/[address] [place] [address] documented as of this encounter
--- OUTSIDE RECORDS SUMMARY | 2022-01-21 14:01 | XMS_ITS | Encounter Summary ---
:1945 Author Organization [facility] Address [address] [place] [address] Care Team Providers Name Role Phone Corrine Vazquez MD Primary Care Provider Reason for Visit Consultation (Routine) - Closed Specialty Diagnoses / Procedures Referred By Contact Refer red To Contact Family Medicine Diagnoses Enrolled in chronic care management Essential hypertension Type 2 diabetes mellitus with other specified complication, with long-term current use of insulin (HCC) Mixed hyperlipidemia Corrine Vazquez MD Care Coordination 17[address] [facility] [address] [place] [address] [place], [place] [phone] Referral ID Status Reason Start Date Expiration Date Visits V isits Requested Authorized [id number] Closed Specialty 02/21/2020 03/18/2021 99 99 Services Required Encounter Details Date Type Department Care Team Description 07/20/2020 Patient Outreach SE Care Coordination Abbie Ramesh Counseling and coordination of care (Primary Dx); [address] [place] [address] Terri RN Type 2 diabetes mellitus with other spec ified complication, with long-term current use of insulin (HCC); [place] [address] 0710 [facility] Essential hypertension [phone] [place] [address] Social History Tobacco Use Types [...] artery disease Managed by (PCP; Cardiology; [facility]) Dr. Taylor MD (PCP)/Dr. [...] Nurse (Diabetes Education) Abbie Ramesh RN as Retail Parts Professional Future Scheduled Appointments No future appointments. [...] - 07/20/2020 8:20 AM CDT Care Coordination Carrier Washer: Abbie Ramesh RN Date: 07/24/2020 11:45 AM ??? Niurkaclemencia calls in stating she has been busy/overwhelmed lately. Has had a lot of family stuff going on. ??? Marcial states feeling tired/weak at times. Feels similar to a few years ago when she had to havea stent placed. Appt with [facility] Cardiology tomorrow. ??? Did not have any [...] Domitila Management (02/05/2021 Abbie Murray, 11:19 AM EXTRUSION BENDER) RN Note: Formatting of this note is differe nt from the original. Routine Health Management Care Team Patient Care Team: Corrine Vazquez MD as PCP - [facility] Yossi Potts, RN as Registered Nurse (Diabetes Education) Abbie Ramesh RN as Retail Parts Professional Future Scheduled Appointments No future appointments. [...] (02/05/2021 11:17 AM No Abbie Ramesh RN EXTRUSION BENDER) Note: Formatting of this note is differe [...] (02/05/2021 No Abbie Ramesh, RN 11:14 AM EXTRUSION BENDER) Note: Formatting of this note is differe [...] hypertension documented in this encounter Care Teams Leather Crafter Relationship Specialty Start Date End Date Corrine Vazquez MD PCP - General Family Medicine 07/07/19 08/19/[address] [place] [address] documented as of this encounter
--- OUTSIDE RECORDS SUMMARY | 2022-01-21 14:01 | XMS_ITS | Encounter Summary ---
:1945 Author Organization [facility] Address [address] [place] [address] Care Team Providers Name Role Phone Corrine Vazquez MD Primary Care Provider Encounter Details Date Type Department Care Team Description 11/09/2020 Lab [place] [address] [place], [place] [address] Social History Tobacco Use [...] Peter Ramesh (02/05/2021 Abbie Murray, 11:19 AM METER TESTER POLYPHASE) RN Note: Formatting of this note is differe nt from the original. Routine Health Management Care Team Patient Care Team: Corrine Vazquez MD as PCP - General ([facility] Medicine) Yossi Potts, RN as Registered Nurse (Diabetes Education) Abbie Ramesh RN as Lumber Yard Worker Future Scheduled Appointments No future appointments. [...] (02/05/2021 11:17 AM No Abbie Ramesh, RN METER TESTER POLYPHASE) Note: Formatting of this note is differe [...] (02/05/2021 No Abbie Ramesh, RN 11:14 AM METER TESTER POLYPHASE) Note: Formatting of this note is differe [...] on filedocumented in this encounter Care Teams Workforce Manager Relationship Specialty Start Date End Date Corrine Vazquez MD PCP - General Family Medicine 07/07/19 08/19/[address] [place] [address] documented as of this encounter
--- OUTSIDE RECORDS SUMMARY | 2022-01-21 14:01 | XMS_ITS | Encounter Summary ---
:1945 Author Organization [facility] Address [address] [place] [address] Care Team Providers Name Role Phone Corrine Vazquez MD Primary Care Provider Reason for Visit Reason Onset Date Comments rx 11/09/2020 Encounter Details Date Type Department Care Team Description 11/09/2020 Telephone [place] Corrine Vazquez MD rx [address] [place], [place] [address] [place], [place] [phone] (Wo rk) Social History Tobacco Use Types [...] questions about RX. Please call Kamille at [phone]. documented in this encounter Plan of Treatment Not on filedocumented as of this encounter Goals Goal Patient Goal Associated Recent Patient-Stated? Author Type Problems Progress Routine Health General No change Peter Monzon (02/05/2021 Abbie Murray, 11:19 AM TEST HOLE DRILLER) RN Note: Formatting of this note is differe nt from the original. Routine Health Management Care Team Patient Care Team: Corrine Vazquez MD as PCP - General ([facility]) Yossi Potts RN as Registered Nurse (Diabetes Education) Abbie Ramesh, RN as Training Administrator Future Scheduled Appointments No future appointments. [...] on filedocumented in this encounter Care Teams Redeye Gunner Relationship Specialty Start Date End Date Corrine Vazquez MD PCP - General Family Medicine 07/07/19 08/19/21 [address] [place] [address] documented as of this encounter
--- OUTSIDE RECORDS SUMMARY | 2022-01-21 14:01 | XMS_ITS | Encounter Summary ---
:1945 Author Organization [facility] Address [address] [place] [address] Care Team Providers Name Role Phone Corrine Vazquez MD Primary Care Provider Reason for Visit Consultation (Routine) - Closed Specialty Diagnoses / Procedures Referred By Contact Refer red To Contact Family Medicine Diagnoses Enrolled in chronic care management Essential hypertension Type 2 diabetes mellitus with other specified complication, with long-term current use of insulin (HCC) Mixed hyperlipidemia Corrine Vazquez MD Care Coordination 1705 [facility] [address] [place] [address] [place], [place] [phone] Referral ID Status Reason Start Date Expiration Date Visits V isits Requested Authorized [id number] Closed Specialty 02/21/2020 03/18/2021 99 99 Services Required Encounter Details Date Type Department Care Team Description 06/22/2020 Patient Outreach SE Care Coordination Abbie Ramesh Counseling and coordination of care (Primary Dx); [address] [place] [address] Terri RN Type 2 diabetes mellitus with other spec ified complication, with long-term current use of insulin (HCC); [place] [address] [address] Essential hypertension [phone] [place] [address] Social History Tobacco Use Types [...] Nurse (Diabetes Education) Abbie Ramesh RN as Bioinformatics Programmer Future Scheduled Appointments No future appointments. Health [...] Ramesh Management (02/05/2021 Abbie Murray, 11:19 AM LEGAL COLLECTOR) RN Note: Formatting of this note is differe nt from the original. Routine Health Management Care Team Patient Care Team: Corrine Vazquez MD as PCP - [facility] Yossi Potts RN as Registered Nurse (Diabetes Education) Abbie Ramesh RN as Bioinformatics Programmer Future Scheduled Appointments No future appointments. Health [...] change (02/05/2021 11:17 AM Abbie Monzon, RN LEGAL COLLECTOR) Note: Formatting of this note is [...] (02/05/2021 No Abbie Ramesh RN 11:14 AM LEGAL COLLECTOR) Note: Formatting of this note is [...] hypertension documented in this encounter Care Teams Orthophotography Technician Relationship Specialty Start Date End Date Corrine Vazquez MD PCP - General Family Medicine 07/07/19 08/19/[address] [place] [address] documented as of this encounter
--- OUTSIDE RECORDS SUMMARY | 2022-01-21 14:01 | XMS_ITS | Encounter Summary ---
:1945 Author Organization [facility] Address [address] [place] [address] Care Team Providers Name Role Phone Corrine Vazquez MD Primary Care Provider Reason for Visit Consultation (Routine) - Closed Specialty Diagnoses / Procedures Referred By Contact Refer red To Contact Family Medicine Diagnoses Enrolled in chronic care management Essential hypertension Type 2 diabetes mellitus with other specified complication, with long-term current use of insulin (HCC) Mixed hyperlipidemia Corrine Vazquez MD Care Coordination 1705 [facility] [address] [place] [address] [place], [place] [phone] Referral ID Status Reason Start Date Expiration Date Visits V isits Requested Authorized [id number] Closed Specialty 02/21/2020 03/18/2021 99 99 Services Required Encounter Details Date Type Department Care Team Description 11/02/2020 Patient Outreach SE Care Coordination Abbie Ramesh Counseling and coordination of care (Primary Dx); [address] [place] [address] Terri RN Type 2 diabetes mellitus with other spec ified complication, with long-term current use of insulin (HCC); [place] [address] [address] [facility] Essential hypertension [phone] [place] [address] Social History Tobacco Use Types [...] (PCP; Cardiology; [facility]) Dr. Taylor MD (PCP)/Dr. Tena MD [...] Nurse (Diabetes Education) Abbie Ramesh RN as Marine Mechanic Future Scheduled Appointments No future appointments. Health Maintenance Health Maintenance Topic Date Due ??? Urine Protein Screening 05/31/2020 ??? COVID-19 Vaccine (3 - Pfizer risk 3-dose series) 06/12/2020 ??? Lipid Panel 09/05/2020 ??? Hemoglobin A1C 10/25/2020 ??? Mammogram 12/01/2020 ??? Colorectal Cancer Screening: Colonoscopy 05/21/2021 ??? Glaucoma Screening 67+ Yr 12/25/2020 ??? Ophthalmology Exam 12/25/2020 ??? [facility] Annual Wellness 01/12/2021 ??? Diabetic Foot Exam 03/16/2021 ??? Fall Risk Performed 06/05/2021 ? ? [facility] Pneumococcal Vaccine: <64 Completed ??? [facility] Pneumococcal Vaccine: 65+ Years Completed ??? HPV Vaccines Aged Out Notes: ??? Urine Protein screening due documented in this encounter Plan of Treatment Not on filedocumented as of this encounter Goals Goal Patient Goal Associated Recent Patient-Stated? Author Type Problems Progress Routine Health General No change No Domitila, Management (02/05/2021 Abbie Murray, 11:19 AM INFORMATION TECHNOLOGY COORDINATOR) RN Note: Formatting of this note is differe nt from the original. Routine Health Management Care Team Patient Care Team: Corrine Vazquez MD as PCP - [facility]) Yossi Potts RN as Registered Nurse (Diabetes Education) Abbie Ramesh RN as Marine Mechanic Future Scheduled Appointments No future appointments. Health Maintenance Health Maintenance Topic Date Due Urine Protein Screening 05/31/2020 Lipid Panel 09/05/2020 Glaucoma Screening 67+ Yr 12/25/2020 Ophthalmology Exam 12/25/2020 [facility] Annual Wellness 01/12/2021 Hemoglobin A1C 01/24/2021 Diabetic Foot Exam 03/16/2021 Colorectal Cancer Screening: Colonoscop y 05/21/2021 Fall Risk Performed 06/05/2021 Mammogram 12/03/2021 COVID-19 Vaccine Completed [facility] Pneumococcal Vaccine: <64 Completed [facility] Pneumococcal Vaccine: 65+ Years Com pleted HPV Vaccines Aged Out Notes: Due: Urine Protein screening Eye exam AWV A1C Lipid panel Diabetes Management General No change (02/05/2021 11:17 AM No Abbie Ramesh, RN INFORMATION TECHNOLOGY COORDINATOR) Note: Formatting of this note is [...] No Abbie Ramesh RN 11:14 AM INFORMATION TECHNOLOGY COORDINATOR) Note: Formatting of this note is [...] hypertension documented in this encounter Care Teams Food And Drug Inspector Relationship Specialty Start Date End Date Corrine Vazquez MD PCP - General Family Medicine 07/07/19 08/19/[address] [place] [address] documented as of this encounter
--- OUTSIDE RECORDS SUMMARY | 2022-01-21 14:02 | XMS_ITS | Encounter Summary ---
:1945 Author Organization [facility] Address [address] [place] [address] Care Team Providers Name Role Phone Corrine Vazquez MD Primary Care Provider Reason for Visit Reason Onset Date Comments Med Refill 03/19/2020 Encounter Details Date Type Department Care Team Description 03/19/2020 Telephone [place] Corrine Vazquez MD Med Refill [address] [place], [place] [address] [place], [place] [phone] (Wo rk) Social History Tobacco Use Types [...] LPN - 03/19/2020 9:00 AM CST Noted RPRETER Telephone Encounter - Luciana Albarado - 03/19/2020 8:32 AM CST Both Rx's faxed to [facility] as requested. RPRETER Telephone Encounter - Margareth Sanchez RN - 03/19/2020 8:13 AM CST Please fax Rx for Xanax and test strips to patients pharmacy [facility]. RPRETER documented in this encounter Plan of Treatment Not on filedocumented as of this encounter Goals Goal Patient Goal Associated Recent Patient-Stated? Author Type Problems Progress Routine Health General No change Peter Monzon (02/05/2021 Abbie Murray, 11:19 AM INTERPRETER) RN Note: Formatting of this note is differe nt from the original. Routine Health Management Care Team Patient Care Team: Corrine Vazquez MD as PCP - [facility] Yossi Potts, RN as Registered Nurse (Diabetes Education) Abbie Ramesh, RN as Manager Of Quality Future Scheduled Appointments No future appointments. Health [...] change (02/05/2021 11:17 AM Abbie Monzon, RN INTERPRETER) Note: Formatting of this note is [...] on filedocumented in this encounter Care Teams Dewaxer Relationship Specialty Start Date End Date Corrine Vazquez MD PCP - General Family Medicine 07/07/19 08/19/[address] [place] [address] documented as of this encounter
--- OUTSIDE RECORDS SUMMARY | 2022-01-21 14:02 | XMS_ITS | Encounter Summary ---
:1945 Author Organization [facility] Address [address] [place] [address] Care Team Providers Name Role Phone Corrine Vazquez MD Primary Care Provider Encounter Details Date Type Department Care Team Description 03/18/2020 Orders Only [place] Corrine Vazquez Type [address] [place] mellitus with other [place], [place] [address] specified complication, [place] with long-term current [place], [place] use of insu [place] ([facility]) [phone] (Primary Dx) Social History Tobacco Use Types [...] Monzon (02/05/2021 Abbie Murray, 11:19 AM SALES EFFECTIVENESS MANAGER) RN Note: Formatting of this note is differe nt from the original. Routine Health Management Care Team Patient Care Team: Corrine Vazquez MD as PCP - General ([facility] Medicine) Yossi Potts, ERA as Registered Nurse (Diabetes Education) Abbie Ramesh, RN as Clinical Operations Manager Future Scheduled Appointments No future appointments. [...] (02/05/2021 11:17 AM Abbie Monzon, RN SALES EFFECTIVENESS MANAGER) Note: Formatting of this note is differe nt from the original. Diabetes Management Type 2 diabetes mellitus with other spec ified complication (HCC) Managed by (PCP or Endocrinology) Dr. Vazquez (PCP ) Home Glucose tracking 1-3 times per day Diabetic medications insulin glargine (B ROXANNE MAGALLANESPEN) 100 UNIT/ML injection 22 units in [...] Primary documented in this encounter Care Teams Key Account Executive Relationship Specialty Start Date End Date Corrine Vazquez MD PCP - General Family Medicine 07/07/19 08/19/[address] [place] [address] documented as of this encounter
--- OUTSIDE RECORDS SUMMARY | 2022-01-21 14:02 | XMS_ITS | Encounter Summary ---
:1945 Author Organization [facility] Address [address] [place] [address] Care Team Providers Name Role Phone Corrine Vazquez MD Primary Care Provider Encounter Details Date Type Department Care Team Description 05/21/2020 Orders Only [place] Corrine Vazquez MD [address] [facility] [address] [place], [place] [address] [place], [place] [phone] (Wo rk) Social History Tobacco Use Types [...] Domitila, Management (02/05/2021 Abbie Murray, 11:19 AM INDIRECT SALES REPRESENTATIVE) RN Note: Formatting of this note is differe nt from the original. Routine Health Management Care Team Patient Care Team: oCrrine Vazquez MD as PCP - General ([facility]) Yossi Potts, RN as Registered Nurse (Diabetes Education) Abbie Ramesh, RN as Concrete Truck Driver Future Scheduled Appointments No future appointments. [...] (02/05/2021 11:17 AM No Abbie Ramesh, RN INDIRECT SALES REPRESENTATIVE) Note: Formatting of this note is [...] track (02/05/2021 Abbie Monzon RN 11:14 AM INDIRECT SALES REPRESENTATIVE) Note: Formatting of this note is [...] on filedocumented in this encounter Care Teams Judicial Assistant Relationship Specialty Start Date End Date Corrine Vazquez MD PCP - General Family Medicine 07/07/19 08/19/[address] [place] [address] documented as of this encounter
--- OUTSIDE RECORDS SUMMARY | 2022-01-21 14:02 | XMS_ITS | Encounter Summary ---
:[address] [facility] Address [address] [place] [address] Care Team Providers Name Role Phone Corrine Vazquez MD Primary Care Provider Reason for Visit Reason Comments Pain in Side Encounter Details Date Type Department Care Team Description 01/13/2020 Office Visit [place] Corrine Vazquez Mixed hyperlipidemia (Primar y Dx); [address] [place] Left-sided chest wall pain; [place], [place] [address] Type 2 diab etes mellitus with other specified complication, with long-term current use of insulin ([facility]) [address] [place] [phone] [place] [address] Social History Tobacco Use Types Packs/Day Years [...] Comments Blood Pressure 132/80 01/13/2020 2:24 PM CONSTRUCTION ESTIMATOR Pulse 86 01/13/2020 2:24 PM CONSTRUCTION ESTIMATOR Temperature 36.3 ??C (97.4 ??F) 01/13/2020 2:24 PM CONSTRUCTION ESTIMATOR Respiratory Rate 14 01/13/2020 2:24 PM CONSTRUCTION ESTIMATOR Oxygen Saturation 96% 01/13/2020 2:24 PM CONSTRUCTION ESTIMATOR Inhaled Oxygen Concentration - - Weight 81.6 kg (180 lb) 01/13/2020 2:24 PM CONSTRUCTION ESTIMATOR Height 160.3 cm (5' 3.11) 01/13/2020 2:24 PM CONSTRUCTION ESTIMATOR Body Mass Index 31.77 01/13/2020 2:24 PM CONSTRUCTION ESTIMATOR documented in this encounter Progress Notes Corrine [...] bruise and a little bit of a [place] lump is most likely secondary to where [...] this area that would suggest possibly shingles TRUCTION ESTIMATOR documented in this encounter Plan of Treatment Not on filedocumented as of this encounter Goals Goal Patient Goal Associated Recent Patient-Stated? Author Type Problems Progress Routine Health General No change No Peter Ramesh (02/05/2021 Abbie Murray, 11:19 AM CONSTRUCTION ESTIMATOR) RN Note: Formatting of this note is differe nt from the original. Routine Health Management Care Team Patient Care Team: Corrine Vazquez MD as PCP - [facility] Yossi Potts, RN as Registered Nurse (Diabetes Education) Abbie Ramseh RN as Emergency Medical Service Manager Future Scheduled Appointments No future appointments. [...] (02/05/2021 11:17 AM No Abbie Ramesh, RN CONSTRUCTION ESTIMATOR) Note: Formatting of this note is differe [...] (HCC) documented in this encounter Care Teams Commercial Loan Analyst Relationship Specialty Start Date End Date Corrine Vazquez MD PCP - General Family Medicine 07/07/19 08/19/[address] [place] [address] documented as of this encounter
--- OUTSIDE RECORDS SUMMARY | 2022-01-21 14:02 | XMS_ITS | Encounter Summary ---
:1945 Author Organization [facility] Address [address] [place] [address] Care Team Providers Name Role Phone Corrine Vazquez MD Primary Care Provider Reason for Visit Reason Onset Date Comments orders 01/20/2020 Encounter Details Date Type Department Care Team Description 01/20/2020 Telephone [place] Corrine Vazquez MD orders [address] [place], [place] [address] [place], [place] [phone] (Wo rk) Social History Tobacco Use Types [...] have them fax the orders to us. 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 She is wondering if outside order has been received. Please call her at [phone]. PHYSICIST documented in this encounter Plan of Treatment Not on filedocumented as of this encounter Goals Goal Patient Goal Associated Recent Patient-Stated? Author Type Problems Progress Routine Health General No change No Domitila, Peter (02/05/2021 Abbie Murray 11:19 AM METAPHYSICIST) RN Note: Formatting of this note is differe nt from the original. Routine Health Management Care Team Patient Care Team: Corrine Vazquez MD as PCP - General ([facility]) Yossi Potts, RN as Registered Nurse (Diabetes Education) Abbie Ramesh RN as Mine Engineering Supervisor Future Scheduled Appointments No future appointments. [...] (02/05/2021 11:17 AM No Abbie Ramesh, RN METAPHYSICIST) Note: Formatting of this note is differe [...] on filedocumented in this encounter Care Teams Cotton Stripper Relationship Specialty Start Date End Date Corrine Vazquez MD PCP - General Family Medicine 07/07/19 08/19/[address] [place] [address] documented as of this encounter
--- OUTSIDE RECORDS SUMMARY | 2022-01-21 14:02 | XMS_ITS | Encounter Summary ---
:1945 Author Organization [facility] Address [address] [place] [address] Care Team Providers Name Role Phone Corrine Vazquez MD Primary Care Provider Reason for Visit Consultation (Routine) - Closed Specialty Diagnoses / Procedures Referred By Contact Refer red To Contact Diagnoses Medicare annual wellness visit, initial Corrine Vazquez MD Care Coordination [address] [place], [place] [phone] Referral ID Status Reason Start Date Expiration Date Visits V isits Requested Authorized [id number] Closed Specialty 12/23/2018 99 99 Services Required Encounter Details Date Type Department Care Team Description 02/01/2020 Patient Outreach SE Care Coordination Abbie Ramesh Counseling and [address] [place] [address] J [place] [address] [address] (Primary Dx) [phone] [place] [address] Social History Tobacco Use Types [...] as of this encounter Progress Notes Abbie Rmaesh RN - 02/01/2020 11:20 AM CST Care Plan - Care Coordination Contact Date: 02/01/2020 11:49 AM Called for monthly follow up and progress; Left message to call back.. This is first attempt to call this month. L MOULDER Abbie Ramesh RN - 02/01/2020 11:20 AM CST Care Plan - Care Coordination Contact Date: 02/16/2020 2:32 PM Called for monthly follow up and progress; Left message to call back.. This is second attempt to call this month. Also address telephone encounter from yesterday 02/14. L MOULDER documented in this encounter Plan of Treatment Not on filedocumented as of this encounter Goals Goal Patient Goal Associated Recent Patient-Stated? Author Type Problems Progress Routine Health General No change Peter Monzon (02/05/2021 Abbie Murray, 11:19 AM METAL MOULDER) RN Note: Formatting of this note is differe nt from the original. Routine Health Management Care Team Patient Care Team: Corrine Vazquez MD as PCP - [facility] Yossi Potts, RN as Registered Nurse (Diabetes Education) Abbie Ramesh RN as Mobile Equipment Servicer Future Scheduled Appointments No future appointments. Health Maintenance Health Maintenance Topic Date Due Urine Protein Screening 05/31/2020 Lipid Panel 09/05/2020 Glaucoma Screening 67+ Yr 12/25/2020 Ophthalmology Exam 12/25/2020 [facility] Annual Wellness 01/12/2021 Hemoglobin A1C 01/24/2021 Diabetic [...] (02/05/2021 11:17 AM No Abbie Ramesh RN METAL MOULDER) Note: Formatting of this note is differe [...] imary documented in this encounter Care Teams Tablet Technician Relationship Specialty Start Date End Date Corrine Vazquez MD PCP - General Family Medicine 07/07/19 08/19/[address] [place] [address] documented as of this encounter
--- OUTSIDE RECORDS SUMMARY | 2022-01-21 14:02 | XMS_ITS | Encounter Summary ---
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 Routine Health Management Care Team Patient Care Team: Corrine Vazquez MD as PCP - General ([facility] Medicine) Yossi Potts, RN as Registered Nurse (Diabetes Education) Abbie Ramesh, RN as Cabin Outfitter Future Scheduled Appointments No future appointments. Health Maintenance Health Maintenance Topic Date Due Urine Protein Screening 05/31/2020 Lipid Panel 09/05/2020 Glaucoma Screening 67+ Yr 12/25/2020 Ophthalmology Exam 12/25/2020 [facility] Annual Wellness 01/12/2021 Hemoglobin A1C 01/24/2021 Diabetic Foot Exam 03/16/2021 Colorectal Cancer Screening: Colonoscop y 05/21/2021 Fall Risk Performed 06/05/2021 Mammogram 12/03/2021 COVID-19 Vaccine Completed [facility] Pneumococcal Vaccine: <64 Completed [facility] Pneumococcal Vaccine: 65+ Years Com pleted HPV Vaccines Aged Out Notes: Due: Urine Protein screening Eye exam AWV A1C Lipid panel Diabetes Management General No change (02/05/2021 11:17 AM No Abbie Ramesh, RN BUNCHER OPERATOR) Note: Formatting of this note is [...] Seropositive Re sults for this RATE AM BUNCHER OPERATOR rheumatoid arthritis procedu re are in of multiple sites the result s (HCC) section. Encounter for long-term (current) use of medicatio ns Vitamin D deficiency, unspecified VITAMIN D, TOTAL Routine 01/25/2020 10:35 Seropositive Results for this AM BUNCHER OPERATOR rheumatoid arthritis procedu re are in of multiple sites the result s (HCC) section. Encounter for long-term (current) use of medicatio ns Vitamin D deficiency, unspecified CBC BRANCH OFFICE Routine 01/25/2020 10:35 Seropositive Result s for this W/DIFF AM BUNCHER OPERATOR rheumatoid arthritis procedu re are in of multiple sites the result s (HCC) section. Encounter for long-term (current) use of medicatio ns Vitamin D deficiency, unspecified CREATININE, SERUM Routine 01/25/2020 10:35 Seropositive Result s for this AM BUNCHER OPERATOR rheumatoid arthritis procedu re are in of multiple sites the result s (HCC) section. Encounter for long-term (current) use of medicatio ns Vitamin D deficiency, unspecified SEDIMENTATION RATE, Routine 01/25/2020 10:35 Seropositive Resu lts for this AUTOMATED AM BUNCHER OPERATOR rheumatoid arthritis procedu re are in of multiple sites the result s (HCC) section. Encounter for long-term (current) use of medicatio ns Vitamin D deficiency, unspecified C-REACTIVE PROTEIN Routine 01/25/2020 10:35 Seropositive Resul ts for this AM BUNCHER OPERATOR rheumatoid arthritis procedu re are in of multiple sites the result s (HCC) section. Encounter for long-term (current) use of medicatio ns Vitamin D deficiency, unspecified ALT Routine 01/25/2020 10:35 Seropositive Results for this AM BUNCHER OPERATOR rheumatoid arthritis procedu re are in of multiple sites the result s (HCC) section. Encounter for long-term (current) use of medicatio ns Vitamin D deficiency, unspecified AST Routine 01/25/2020 10:35 Seropositive Results for this AM BUNCHER OPERATOR rheumatoid arthritis procedu re are in of multiple sites the result s (HCC) section. Encounter for long-term (current) use of medicatio ns Vitamin D deficiency, unspecified CALCIUM Routine 01/25/2020 10:35 Seropositive Results for this AM BUNCHER OPERATOR rheumatoid arthritis procedu re are in of multiple sites the result s (HCC) section. Encounter for long-term (current) use of medicatio ns Vitamin D deficiency, unspecified ALBUMIN Routine 01/25/2020 10:35 Seropositive Results for this AM BUNCHER OPERATOR rheumatoid arthritis procedu re are in of multiple sites the result s (HCC) section. Encounter for long-term (current) use of medicatio ns Vitamin D deficiency, unspecified documented in this encounter Results (ABNORMAL) Glomerular filtration rate (GFR) (01/25/2020 10:35 AM BUNCHER OPERATOR) athologist Signature GFR 40 (A) 01/26/2020 [facility] 2:05 PM [facility] 48 (A) 01/26/2020 [facility] Palestinian GFR 2:05 PM BUNCHER OPERATOR [facility]ENTER LAB[facility] Comment: GFR calculated from serum creatinine v alue Chronic Kidney Disease less than 60 mL/m in/1.73 m2 Kidney Failure less than 15 mL/min/1.73 m2 Note: effective 07/01/06 IDMS-Traceable MDRD Study Equation used. Specimen Anatomical Collection Method Collection Time Receive d Time (Source) Location / / Volume Laterality 01/25/2020 10:35 01/25/2020 AM BUNCHER OPERATOR 10:35 AM BUNCHER OPERATOR Outside Referring Lab Provider LAB BLOOD ORDERABLES Performing Organization Address City/[facility]/ZIP [facility] Phon e Number [facility] [address] [place] [phone] (ABNORMAL) ESR-Sed rate (01/25/2020 10:35 AM BUNCHER OPERATOR) athologist Signature Sed Rate 67 (H) 0 - 29 01/26/2020 [facility] mm/hr 1:43 PM BUNCHER OPERATOR CENTER [facility] Specimen Anatomical Collection Method Collection Time Receive d Time (Source) Location / / Volume Laterality Blood (Blood, 01/25/2020 10:35 01/26/2020 1:01 Venous) AM BUNCHER OPERATOR PM BUNCHER OPERATOR Outside Referring Lab Provider LAB BLOOD ORDERABLES Performing Organization Address City/State/[facility] Phon e Number [facility] [address] [place] [address] (ABNORMAL) CBC Branch Off w/Diff (01/25/2020 10:35 AM BUNCHER OPERATOR) [facility] gist Method Time Signature WBC 6.3 3.5 - 10.5 01/25/2020 [facility] K/uL 12:11 PM BUNCHER OPERATOR FALLS RBC 3.84 (L) 3.90 - 01/25/2020 [facility] 5.00 M/uL 12:11 PM BUNCHER OPERATOR FALLS Hemoglobin 11.3 (L) 12.0 - 01/25/2020 [facility] 15.5 g/dL 12:11 PM BUNCHER OPERATOR FALLS Hematocrit 35.0 35.0 - 01/25/2020 [facility] 44.0 % 12:11 PM BUNCHER OPERATOR FALLS Platelets 181 150 - 450 01/25/2020 [facility] K/uL 12:11 PM BUNCHER OPERATOR FALLS MCV 91.1 81.6 - 01/25/2020 [facility] 98.3 fL 12:11 PM BUNCHER OPERATOR FALLS MCH 29.4 26.0 - 01/25/2020 [facility] 32.0 pg 12:11 PM BUNCHER OPERATOR FALLS MCHC 32.3 32.0 - 01/25/2020 [facility] 36.0 g/dL 12:11 PM BUNCHER OPERATOR FALLS RDW 13.3 11.9 - 01/25/2020 [facility] 15.5 % 12:11 PM BUNCHER OPERATOR FALLS Lymphocytes % 18.3 % 01/25/2020 [facility] 12:11 PM BUNCHER OPERATOR FALLS Mid-size Cells 9.5 % 01/25/2020 [facility] 12:11 PM BUNCHER OPERATOR FALLS Granulocytes/Jean Claude 72.2 % 01/25/2020 [facility] trophils 12:11 PM BUNCHER OPERATOR FALLS Lymphocytes 1.2 0.9 - 2.9 01/25/2020 [facility] Absolute K/uL 12:11 PM BUNCHER OPERATOR FALLS MIDS Absolute 0.6 0.4 - 1.5 01/25/2020 [facility] K/uL 12:11 PM BUNCHER OPERATOR FALLS Granulocytes/Jean Claude 4.5 1.7 - 7.0 01/25/2020 [facility] trophils K/uL 12:11 PM BUNCHER OPERATOR FALLS Absolute Specimen Anatomical Collection Method Collection Time Receive d Time (Source) Location / / Volume Laterality Blood (Blood, 01/25/2020 10:35 01/25/2020 Venous) AM BUNCHER OPERATOR 10:35 AM BUNCHER OPERATOR Outside Referring Lab Provider LAB BLOOD ORDERABLES Performing Organization Address City/State/ZIP Code Phon e Number [facility] [place] [address] [place] [address] Albumin (01/25/2020 10:35 AM BUNCHER OPERATOR) athologist Signature Albumin, Serum 4.0 3.5 - 5.0 01/26/2020 [facility] g/dL 2:05 PM BUNCHER OPERATOR [facility] Specimen Anatomical Collection Method Collection Time Receive d Time (Source) Location / / Volume Laterality Blood (Blood, 01/25/2020 10:35 01/26/2020 1:01 Venous) AM BUNCHER OPERATOR PM BUNCHER OPERATOR Outside Referring Lab Provider LAB BLOOD ORDERABLES Performing Organization Address [facility]/ZIP Code Phon e Number [facility] [address] [place] [phone] (ABNORMAL) Creatinine, Serum (01/25/2020 10:35 AM BUNCHER OPERATOR) athologist Signature Creatinine 1.3 (H) 0.4 - 1.2 01/26/2020 [facility] mg/dL 2:05 PM BUNCHER OPERATOR [facility] Specimen Anatomical Collection Method Collection Time Receive d Time (Source) Location / / Volume Laterality Blood (Blood, 01/25/2020 10:35 01/26/2020 1:01 Venous) AM BUNCHER OPERATOR PM BUNCHER OPERATOR Outside Referring Lab Provider LAB BLOOD ORDERABLES Performing Organization Address City/[facility]/ZIP Code Phon e Number [facility] [address] [place] [address] AST (01/25/2020 10:35 AM BUNCHER OPERATOR) athologist Signature AST 28 8 - 43 U/L 01/26/2020 [facility] 2:05 PM BUNCHER OPERATOR [facility] Specimen Anatomical Collection Method Collection Time Receive d Time (Source) Location / / Volume Laterality Blood (Blood, 01/25/2020 10:35 01/26/2020 1:01 Venous) AM BUNCHER OPERATOR PM BUNCHER OPERATOR Outside Referring Lab Provider LAB BLOOD ORDERABLES Performing Organization Address City/[facility]/ZIP Code Phon e Number [facility] [address] [place] [address] ALT (01/25/2020 10:35 AM BUNCHER OPERATOR) athologist Signature ALT (SGPT) 22 0 - 34 U/L 01/26/2020 [facility] 2:05 PM [facility] Specimen Anatomical Collection Method Collection Time Receive d Time (Source) Location / / Volume Laterality Blood (Blood, 01/25/2020 10:35 01/26/2020 1:01 Venous) AM BUNCHER OPERATOR PM BUNCHER OPERATOR Outside Referring Lab Provider LAB BLOOD ORDERABLES Performing Organization Address City/[facility] Phon e Number [facility] [address] [place] [phone] (ABNORMAL) C-reactive protein (01/25/2020 10:35 AM BUNCHER OPERATOR) athologist [facility] CRP 11.7 (H) 0.0 - 4.9 01/26/2020 [facility] mg/L 2:05 PM [facility] Specimen Anatomical Collection Method Collection Time Receive d Time (Source) Location / / Volume Laterality Blood (Blood, 01/25/2020 10:35 01/26/2020 1:01 Venous) AM BUNCHER OPERATOR PM BUNCHER OPERATOR Outside Referring Lab Provider LAB BLOOD ORDERABLES Performing Organization Address City/[facility] Phon e Number [facility] [address] [place] [phone] Vitamin D, Total ([facility] preferred) (01/25/2020 10:35 AM BUNCHER OPERATOR) athologist [facility] Vitamin D, 48.5 ng/mL 01/26/2020 [facility] Total 2:04 PM BUNCHER OPERATOR [facility]ENTER [facility] Comment: Deficient ?<20 ? ng/mL Insufficient ? 20-<30 ??ng/mL Sufficient ? 30-100 ??ng/mL Vitamin D2/D3 fractionation is recommend ed at the discretion of the clinician if Total Vitamin D is w ithin deficient or insufficient range. Specimen Anatomical Collection Method Collection Time Receive d Time (Source) Location / / Volume Laterality Blood (Blood, 01/25/2020 10:35 01/26/2020 1:01 Venous) AM BUNCHER OPERATOR PM BUNCHER OPERATOR Outside Referring Lab Provider LAB BLOOD ORDERABLES Performing Organization Address City/State/ZIP Code Phon e Number [facility] [address] [place] [address] Calcium (01/25/2020 10:35 AM BUNCHER OPERATOR) P athologist Signature Calcium, 10.1 8.4 - 10.2 01/26/2020 [facility] Total,S mg/dL 2:05 PM BUNCHER OPERATOR [facility] Specimen Anatomical Collection Method Collection Time Receive d Time (Source) Location / / Volume Laterality Blood (Blood, 01/25/2020 10:35 01/26/2020 1:01 Venous) AM BUNCHER OPERATOR PM BUNCHER OPERATOR Outside Referring Lab Provider LAB BLOOD ORDERABLES Performing Organization Address City/State/ZIP Code Phon e Number [facility] [address] [place] [phone] documented in this encounter Visit Diagnoses Diagnosis Seropositive rheumatoid arthritis of located within [facility] ([facility]) Encounter for long-term (current) use of medications Encounter for long-term (current) use of other medications Vitamin D deficiency, unspecified documented in this encounter Care Teams Topstitcher Lockstitch Relationship Specialty Start Date End Date Corrine Vazquez MD PCP - General Family Medicine 07/07/19 08/19/[address] [place] [address] documented as of this encounter
--- OUTSIDE RECORDS SUMMARY | 2022-01-21 14:02 | XMS_ITS | Encounter Summary ---
:1945 Author Organization [facility] Address [address] [place] [address] Care Team Providers Name Role Phone Corrine Vazquez MD Primary Care Provider Reason for Visit Reason Onset Date Comments Mammogram 202003/22/2020 Encounter Details Date Type Department Care Team Description 03/22/2020 Telephone [place] Corrine Vazquez MD Mammogram [address] [place], [place] [address] [place], [place] [phone] (Wo rk) Social History Tobacco Use Types [...] - 03/22/2020 2:15 PM CST DONE 12/02/2019 LE PASTER Telephone Encounter - Lana Knight LPN - 03/22/2020 2:09 PM CST The patient is due for a mammogram. The nurse is needing to know where they want it done at and when? LE PASTER documented in this encounter Plan of Treatment Not on filedocumented as of this encounter Goals Goal Patient Goal Associated Recent Patient-Stated? Author Type Problems Progress Routine Health General No change No Domitila, Management (02/05/2021 Abbie Murray 11:19 AM SAMPLE PASTER) RN Note: Formatting of this note is differe nt from the original. Routine Health Management Care Team Patient Care Team: Corrine Vazquez MD as [facility]CP - [facility] Yossi Potts RN as Registered Nurse (Diabetes Education) Abbie Ramesh RN as Bulb Planter Future Scheduled Appointments No future appointments. Health [...] change (02/05/2021 11:17 AM Abbie Monzon, RN SAMPLE PASTER) Note: Formatting of this note is [...] on filedocumented in this encounter Care Teams Stamp Pad Maker Relationship Specialty Start Date End Date Corrine Vazquez MD PCP - General Family Medicine 07/07/19 08/19/[address] [place] [address] documented as of this encounter
--- OUTSIDE RECORDS SUMMARY | 2022-01-21 14:02 | XMS_ITS | Encounter Summary ---
:1945 Author Organization [facility] Address [address] [place] [address] Care Team Providers Name Role Phone Corrine Herrera MD Primary Care Provider Reason for Visit Reason Onset Date Comments RX 02/15/2020 Encounter Details Date Type Department Care Team Description 02/15/2020 Telephone [place] Corrine Herrera MD RX [address] [place], [place] [address] [place], [place] [phone] (Wo rk) Social History Tobacco Use Types [...] - 02/20/2020 2:24 PM CST Faxed to [facility] COATER Addendum Note - Corrine Herrera MD - 02/20/2020 2:20 PM FRIT COATER Addended by: Corrine HERRERA on: 02/20/2020 02:20 PM Modules accepted: Orders COATER Addendum Note - Nilesh Sanchez RN - 02/20/2020 1:52 PM FRIT COATER Addended by: NILESH SANCHEZ on: 02/20/2020 01:52 PM Modules accepted: Orders COATER Telephone Encounter - Nilesh Sanchez RN - 02/20/2020 1:50 PM CST Patient received a letter that the accucheck Alison plus and its lancets will no longer be covered after 02/17/20. Patient had a letter stating the alternative would be the Contour next one. Please reviewRx request. COATER Telephone Encounter - Nilesh Sanchez RN - 02/20/2020 1:46 PM CST Patient informed, she will keep track and let us know. COATER Telephone Encounter - Corrine Herrera MD - [...] dinner and before she goes to bed. COATER Telephone Encounter - Nilesh Sanchez RN - [...] numbers overall while still bringing downher A1C? COATER Telephone Encounter - Corrine Herrera MD - [...] she is that certainly is her choice. COATER Telephone Encounter - Nilesh Sanchez RN - 02/16/2020 2:28 PM CST Patient informed. Patient had an A1c 12/15/19 at [facility] of 8.4. Please advise on if she should change her medications etc. She questions if she should lower her insulin? She also wanted you to know that the Metformin is giving her a little diarrhea. COATER Telephone Encounter - Corrine Herrera MD - 02/15/2020 3:38 PM CST Marcial's last A1c was about 8.3 this was in August. Have Marcial come in to get her next A1c taken. Diamonds not have to be fasting for this [...] peanutbutter on it or something like that. COATER Telephone Encounter - Nilesh Sanchez RN - [...] bit shaky. Please advise on medication question. COATER Telephone Encounter - Corrine Herrera MD - 02/15/2020 2:39 PM CST There is another one we can try called Sherwin. If she is willing to try let me know and I will sendin for her. COATER Telephone Encounter - Nilesh Sanchez RN - 02/15/2020 9:44 AM CST Please advise if there is another alternative you'd like to prescribe. COATER Telephone Encounter - Phoebe Donohue - 02/15/2020 9:26 AM CST Patient was prescribed Pravastatin but stopped taking it because it caused nightmares. Please call her at [phone]. COATER documented in this encounter Plan of Treatment Not on filedocumented as of this encounter Goals Goal Patient Goal Associated Recent Patient-Stated? Author Type Problems Progress Routine Health General No change Peter Monzon (02/05/2021 Abbie Murray, 11:19 AM FRIT COATER) RN Note: Formatting of this note is differe nt from the original. Routine Health Management Care Team Patient Care Team: Corrine Herrera MD as [facility] - [facility] Yossi Potts RN as Registered Nurse (Diabetes Education) Abbie Ramesh RN as Client Success Director Future Scheduled Appointments No future appointments. [...] change (02/05/2021 11:17 AM Abbie Monzon, RN FRIT COATER) Note: Formatting of this note is differe [...] Primary documented in this encounter Care Teams Community Relations Police Lieutenant Relationship Specialty Start Date End Date Corrine Herrera MD PCP - General Family Medicine 07/07/19 08/19/[address] [place] [address] documented as of this encounter
--- OUTSIDE RECORDS SUMMARY | 2022-01-21 14:02 | XMS_ITS | Encounter Summary ---
:1945 Author Organization [facility] Address [address] [place] [address] Care Team Providers Name Role Phone Corrine Vazquez MD Primary Care Provider Reason for Visit Consultation (Routine) - Closed Specialty Diagnoses / Procedures Referred By Contact Refer red To Contact Family Medicine Diagnoses Enrolled in chronic care management Essential hypertension Type 2 diabetes mellitus with other specified complication, with long-term current use of insulin (HCC) Mixed hyperlipidemia Corrine Vazquez MD Care Coordination 17[address] [facility] 20 [place] [address] [place], [place] [phone] Referral ID Status Reason Start Date Expiration Date Visits V isits Requested Authorized [id number] Closed Specialty 02/21/2020 03/18/2021 99 99 Services Required Encounter Details Date Type Department Care Team Description 02/21/2020 Patient Outreach SE Care Coordination Abbie Ramesh Counseling and coordination of care (Primary Dx); [address] [place] [address] Terri RN Type 2 diabetes mellitus with other spec ified complication, with long-term current use of insulin (HCC); [place] [address] [address] Essential hypertension [phone] [place] [address] Social History Tobacco Use Types [...] (Diabetes Education) Abbie Ramesh RN as Fish Grader Future Scheduled Appointments Future Appointments Date Time Provider Department Center 02/21/2020 2:00 PM Antonio Madsen MD [facility] [place] [facility] Maintenance Health Maintenance Topic Date Due ??? Diabetic Foot Exam 07/16/2019 ??? Mammogram 11/26/2019 ??? Glaucoma Screening 67+ Yr 12/18/2019 ??? Hemoglobin A1C 03/16/2020 ??? Urine Protein Screening 05/31/2020 ??? Lipid Panel 09/05/2020 ??? Ophthalmology Exam 12/25/2020 ??? Fall Risk Performed 01/12/2021 ??? [facility] 01/12/2021 ??? Colorectal Cancer Screening: Colonoscopy 05/21/2021 ??? [facility] Pneumococcal Vaccine: 65+ Years Completed ? ? [facility] Pneumococcal Vaccine: <64 Aged Out ??? HPV Vaccines Aged Out Notes: 1 Progress evaluated against: Health Maintenance EATION PROGRAM SPECIALIST Abbie Ramesh RN - 02/21/2020 10:00 [...] the morning and document blood sugar readings. EATION PROGRAM SPECIALIST documented in this encounter Plan of Treatment Scheduled Referrals Name Type Priority Associated Diagnoses Order S [facility] Ambulatory referral Outpatient Routine Enrolled [...] Domitila Management (02/05/2021 Abbie Murray, 11:19 AM RECREATION PROGRAM SPECIALIST) RN Note: Formatting of this note is differe nt from the original. Routine Health Management Care Team Patient Care Team: Corrine Vazquez MD as PCP - General ([facility]) Yossi Potts RN as Registered Nurse (Diabetes Education) Abbie Ramesh RN as Fish Grader Future Scheduled Appointments No future appointments. Health [...] (02/05/2021 11:17 AM No Abbie Ramesh, RN RECREATION PROGRAM SPECIALIST) Note: Formatting of this note is [...] hypertension documented in this encounter Care Teams Biologics Specialist Relationship Specialty Start Date End Date Corrine Vazquez MD PCP - General Family Medicine 07/07/19 08/19/[address] [place] [address] documented as of this encounter
--- OUTSIDE RECORDS SUMMARY | 2022-01-21 14:02 | XMS_ITS | Encounter Summary ---
:1945 Author Organization [facility] Address [address] [place] [address] Care Team Providers Name Role Phone Corrine Vazquez MD Primary Care Provider Reason for Visit Reason Onset Date Comments referral 03/19/2020 Encounter Details Date Type Department Care Team Description 03/19/2020 Telephone [place] Corrine Vazquez MD referral [address] [facility] [address] [place], [place] [address] [place], [place] [phone] (Wo rk) Social History Tobacco Use Types [...] - 03/19/2020 8:16 AM CST Referral faxed. NESS SERVICES MANAGER Telephone Encounter - Margareth Sanchez RN - 03/19/2020 7:57 AM CST Please fax. NESS SERVICES MANAGER Telephone Encounter - Margareth Sanchez RN - 03/19/2020 7:57 AM CST ----- Message from Corrine Vazquez MD sent at 03/17/2020 12:40 PM BUSINESS SERVICES MANAGER ----- I have placed an order for Marcial to get a BMD at the [facility]. Please copy and fax. NESS SERVICES MANAGER documented in this encounter Plan of Treatment Not on filedocumented as of this encounter Goals Goal Patient Goal Associated Recent Patient-Stated? Author Type Problems Progress Routine Health General No change No Peter Ramesh (02/05/2021 Abbie Murray, 11:19 AM BUSINESS SERVICES MANAGER) RN Note: Formatting of this note is differe nt from the original. Routine Health Management Care Team Patient Care Team: Corrine Vazquez MD as PCP - [facility] Yossi Potts, RN as Registered Nurse (Diabetes Education) Abbie Ramesh RN as Crosscutter Future Scheduled Appointments No future appointments. Health [...] 11:17 AM No Abbie Ramesh, RN BUSINESS SERVICES MANAGER) Note: Formatting of this note [...] on filedocumented in this encounter Care Teams Sweet Dough Mixer Relationship Specialty Start Date End Date Corrine Vazquez MD PCP - General Family Medicine 07/07/19 08/19/[address] [place] [address] documented as of this encounter
--- OUTSIDE RECORDS SUMMARY | 2022-01-21 14:02 | XMS_ITS | Encounter Summary ---
:1945 Author Organization [facility] Address [address] [place] [address] Care Team Providers Name Role Phone Corrine [...] Care Coordination 1705 [facility] 20 [place] [address] [place], [place] [phone] Referral ID Status Reason Start Date Expiration Date Visits V isits Requested Authorized [id number] Closed Specialty 02/21/2020 03/18/2021 99 99 Services Required Encounter Details Date Type Department Care Team Description 05/24/2020 Patient Outreach SE Care Abbie Ramesh and coordination of care (Primary Dx); Coordination J, RN Type 2 diabetes mellitus with other spec ified complication, with long-term current use of insulin (HCC); [address] [place] [address] [address] Essential hypertension; [place] [address] [facility] Mixed hyperlipidemia [phone] [place] [address] Social History Tobacco Use Types [...] (PCP; Cardiology; [facility]) Dr. Vazquez Last: 03/16/20 Due: [...] Nurse (Diabetes Education) Abbie Ramesh, RN as Malt House Loader Future Scheduled Appointments No future appointments. Health [...] Out Notes: Eye exam due Covid Vaccine [facility] 2 nd 05/15. Abbie Ramesh RN - 05/24/2020 1:00 PM CDT Care Plan - Care Coordination Contact Date: 05/30/2020 4:04 PM Date: AM Noon PM Bedtime Comments* 05/16 123 *ice cream before bed 05/17 109 / 123 05/19 95 201 05/20 84 163 5 120 05/22 88 05/23 98 05/24 70 [...] Peter Monzon (02/05/2021 Abbie Murray, 11:19 AM EQUINE SCIENCE INSTRUCTOR) RN Note: Formatting of this note is differe nt from the original. Routine Health Management Care Team Patient Care Team: Corrine Vazquez MD as PCP - General ([facility]) Yossi Potts, RN as Registered Nurse (Diabetes Education) Abbie Ramesh RN as Malt House Loader Future Scheduled Appointments No future appointments. [facility] Pneumococcal Vaccine: <64 Completed [facility] Pneumococcal Vaccine: 65+ Years Com pleted HPV Vaccines Aged Out Notes: Due: Urine Protein screening Eye exam AWV A1C Lipid panel Diabetes Management General No change (02/05/2021 11:17 AM Abbie Monzon, RN EQUINE SCIENCE INSTRUCTOR) Note: Formatting of this note is [...] (02/05/2021 No Abbie Ramesh, RN 11:14 AM EQUINE SCIENCE INSTRUCTOR) Note: Formatting of this note is [...] hyperlipidemia documented in this encounter Care Teams Sr. Media Manager Relationship Specialty Start Date End Date Corrine Vazquez MD PCP - General Family Medicine 07/07/19 08/19/[address] [place] [address] documented as of this encounter
--- OUTSIDE RECORDS SUMMARY | 2022-01-21 14:02 | XMS_ITS | Encounter Summary ---
:1945 Author Organization [facility] Address [address] [place] [address] Care Team Providers Name Role Phone Corrine Vazquez MD Primary Care Provider Reason for Visit Consultation (Routine) - Closed Specialty Diagnoses / Procedures Referred By Contact Refer red To Contact Family Medicine Diagnoses Enrolled in chronic care management Essential hypertension Type 2 diabetes mellitus with other specified complication, with long-term current use of insulin (HCC) Mixed hyperlipidemia Corrine Vazquez MD Care Coordination [address] [place] [phone] Referral ID Status Reason Start Date Expiration Date Visits V isits Requested Authorized [id number] Closed Specialty 02/21/2020 03/18/2021 99 99 Services Required Encounter Details Date Type Department Care Team Description 04/25/2020 Patient Outreach SE Care Coordination Abbie Ramesh, [address] [place] [address] [place] [address] [place] [phone] Social History Tobacco Use Types Packs/Day Years [...] 12/23/2018 organizations such as amish groups, unions, [employer] or athletic groups, or school groups? How [...] is first attempt to call this month. TEGIC MARKETING SPECIALIST documented in this encounter Plan of Treatment Not on filedocumented as of this encounter Goals Goal Patient Goal Associated Recent Patient-Stated? Author Type Problems Progress Routine Health General No change No Peter Ramesh (02/05/2021 Abbie Murray, 11:19 AM STRATEGIC MARKETING SPECIALIST) RN Note: Formatting of this note is differe nt from the original. Routine Health Management Care Team Patient Care Team: Corrine Vazquez MD as PCP - General ([facility] Yossi Potts, RN as Registered Nurse (Diabetes Education) Abbie Ramesh RN as Small Electric Engine Technician Future Scheduled Appointments No future appointments. [...] (02/05/2021 11:17 AM No Abbie Ramesh, RN STRATEGIC MARKETING SPECIALIST) Note: Formatting of this note is [...] (02/05/2021 No Abbie Ramesh RN 11:14 AM STRATEGIC MARKETING SPECIALIST) Note: Formatting of this note is [...] filedocumented in this encounter Care Teams Business Office Associate Relationship Specialty Start Date End Date Corrine Vazquez MD PCP - General Family Medicine 07/07/19 08/19/[address] [place] [address] documented as of this encounter
--- OUTSIDE RECORDS SUMMARY | 2022-01-21 14:02 | XMS_ITS | Encounter Summary ---
:1945 Author Organization [facility] Address [address] [place] [address] Care Team Providers Name Role Phone Corrine [...] Vazquez MD Care Coordination [address] [place] [address] [place], [place] [phone] Referral ID Status Reason Start Date Expiration Date Visits V isits Requested Authorized [id number] Closed Specialty 02/21/2020 03/18/2021 99 99 Services Required Scheduling Instructions Staff from this department will contact the patient to schedule an appointment. ALL TECHNICIAN Encounter Details Date Type Department Care Team Description 02/23/2020 Orders Only SE Care Coordination Corrine Vazquez Enrolled in chronic care man agement (Primary Dx); [address] [place] [address] MD [place] Essential hypertension; [place] [address] Type 2 diabetes mellitus wit h other specified complication, with long-term current use of insulin (HCC); [phone] [place] [address] Social History Tobacco Use Types Packs/Day Years [...] Name Type Priority Associated Diagnoses Order S [facility] Ambulatory referral Outpatient Routine Enrolled in [...] Domitila Management (02/05/2021 Abbie Murray, 11:19 AM INSTALL TECHNICIAN) RN Note: Formatting of this note is differe nt from the original. Routine Health Management Care Team Patient Care Team: Corrnie Vazquez MD as PCP - General ([facility]) Yossi Potts, RN as Registered Nurse (Diabetes Education) Abbie Ramesh, RN as Net C Developer Future Scheduled Appointments No future appointments. [...] (02/05/2021 11:17 AM No Abbie Ramesh, RN INSTALL TECHNICIAN) Note: Formatting of this note is [...] hyperlipidemia documented in this encounter Care Teams Banquet Steward Relationship Specialty Start Date End Date Corrine Vazquez MD PCP - General Family Medicine 07/07/19 08/19/[address] [place] [address] documented as of this encounter
--- OUTSIDE RECORDS SUMMARY | 2022-01-21 14:02 | XMS_ITS | Encounter Summary ---
:1945 Author Organization [facility] Address [address] [place] [address] Care Team Providers Name Role Phone Corrine Vazquez MD Primary Care Provider Reason for Visit Reason Comments Leg Pain with touch on left calf x 2- 3 days Encounter Details Date Type Department Care Team Description 02/21/2020 Office Visit [place] Antonio Madsen, Phlebitis and thombophlb of superfic vessels of [facility] extrem (Primary Dx); [address] Systolic murmur [place], [place] [address] [place] [address] [place], [place] [phone] Social History Tobacco Use Types Packs/Day Years [...] Comments Blood Pressure 134/72 02/21/2020 1:59 PM VICE PRESIDENT MARKETING & DEVELOPMENT Pulse 76 02/21/2020 1:59 PM VICE PRESIDENT MARKETING & DEVELOPMENT Temperature 36.8 ??C (98.3 ??F) 02/21/2020 1:59 PM VICE PRESIDENT MARKETING & DEVELOPMENT Respiratory Rate 16 02/21/2020 1:59 PM VICE PRESIDENT MARKETING & DEVELOPMENT Oxygen Saturation - - Inhaled Oxygen Concentration - - Weight 82.7 kg (182 lb 6.4 oz) 02/21/2020 1:59 PM VICE PRESIDENT MARKETING & DEVELOPMENT Height - - Body Mass Index 32.2 01/13/2020 2:24 PM VICE PRESIDENT MARKETING & DEVELOPMENT documented in this encounter Patient Instructions Patient [...] these instructions at home: Medicines ?? Take dqjd-zhc-fbupetx and prescription medicines only as told by [...] 07/29/2017 Document Revised: 07/29/2017 Document Reviewed: 07/29/2017 Press About Us Interactive Patient Education ?? 2020 [employer]. PRESIDENT MARKETING & DEVELOPMENT documented in this encounter Progress Notes Antonio [...] these instructions at home: Medicines ?? Take jgjf-xdi-aerdhsp and prescription medicines only as told by [...] 07/29/2017 Document Revised: 07/29/2017 Document Reviewed: 07/29/2017 Press About Us Interactive Patient Education ?? 2020 [employer]. Return if symptoms worsen or fail to improve. Note created using voice dictation software. PRESIDENT MARKETING & DEVELOPMENT documented in this encounter Plan of Treatment Not on filedocumented as of this encounter Goals Goal Patient Goal Associated Recent Patient-Stated? Author Type Problems Progress Routine Health General No change Peter Monzon (02/05/2021 Abbie Murray, 11:19 AM VICE PRESIDENT MARKETING & DEVELOPMENT) RN Note: Formatting of this note is differe nt from the original. Routine Health Management Care Team Patient Care Team: Corrine Vazquez MD as PCP - General ([facility]) Yossi Potts, RN as Registered Nurse (Diabetes Education) Abbie Ramesh RN as Fringe Weaver Future Scheduled Appointments No future appointments. Health [...] (02/05/2021 11:17 AM No Abbie Ramesh, RN VICE PRESIDENT MARKETING & DEVELOPMENT) Note: Formatting of this note is differe [...] murmurs documented in this encounter Care Teams Integrated Marketing Intern Relationship Specialty Start Date End Date Corrine Vazquez MD PCP - General Family Medicine 07/07/19 08/19/[address] [place] [address] documented as of this encounter
--- OUTSIDE RECORDS SUMMARY | 2022-01-21 14:02 | XMS_ITS | Encounter Summary ---
:1945 Author Organization [facility] Address [address] [place] [address] Care Team Providers Name Role Phone Corrine Vazquez MD Primary Care Provider Encounter Details Date Type Department Care Team Description 04/01/2020 Orders Only [place] Corrine Vazquez MD [address] [facility] [address] [place], [place] [address] [place], [place] [phone] (Wo rk) Social History Tobacco Use Types [...] Domitila, Management (02/05/2021 Abbie Murray, 11:19 AM COORDINATING PRODUCER) RN Note: Formatting of this note is differe nt from the original. Routine Health Management Care Team Patient Care Team: Corrine Vazquez MD as PCP - General ([facility] Medicine) Yossi Potts, RN as Registered Nurse (Diabetes Education) Abbie Ramesh, RN as Integration Director Future Scheduled Appointments No future appointments. Health Maintenance Health Maintenance Topic Date Due Urine Protein Screening 05/31/2020 Lipid Panel 09/05/2020 Glaucoma Screening 67+ Yr 12/25/2020 Ophthalmology Exam 12/25/2020 [facility] Annual Wellness 01/12/2021 Hemoglobin A1C 01/24/2021 Diabetic Foot Exam 03/16/2021 Colorectal Cancer Screening: Colonoscop y 05/21/2021 Fall Risk Performed 06/05/2021 Mammogram 12/03/2021 COVID-19 Vaccine Completed [facility] Pneumococcal Vaccine: <64 Completed [facility] Pneumococcal Vaccine: 65+ Years Com pleted HPV Vaccines Aged Out Notes: Due: Urine Protein screening Eye exam AWV A1C Lipid panel Diabetes Management General No change (02/05/2021 11:17 AM No Abbie Ramesh, RN COORDINATING PRODUCER) Note: Formatting of this note is [...] on filedocumented in this encounter Care Teams Precast Concrete Products Installer Relationship Specialty Start Date End Date Corrine Vazquez MD PCP - General Family Medicine 07/07/19 08/19/[address] [place] [address] documented as of this encounter
--- OUTSIDE RECORDS SUMMARY | 2022-01-21 14:02 | XMS_ITS | Encounter Summary ---
:1945 Author Organization [facility] Address [address] [place] [address] Care Team Providers Name Role Phone Corrine Vazquez MD Primary Care Provider Reason for Visit Reason Comments Dizziness Headache Fatigue Encounter Details Date Type Department Care Team Description 06/05/2020 Office Visit [place] Antonio Madsen, Dizziness (Primary Dx); [address] Decreased vibratory sense; [place], [place] [address] [place] Orthostatic hypotension; [address] [place], [place] Essential hypertension; [phone] Type 2 diabetes mellitus with other spec ified complication, with long-term current use of insulin (HCC); [phone] Chronic diarrhe a; (Work) Venous insufficiency; Early [...] insulin(HCC) 6. Chronic diarrhea Celiac Disease Serology [place] 7. Venous insufficiency 8. Early satiety Her [...] EGD and have her seen by her Foundry Technician. Her glucose levels at least from review [...] Peter Monzon (02/05/2021 Abbie Murray, 11:19 AM TUMBLERS SUPERVISOR) RN Note: Formatting of this note is differe nt from the original. Routine Health Management Care Team Patient Care Team: Corrine Vazquez MD as PCP - General ([facility] Medicine) Yossi Potts RN as Registered Nurse (Diabetes Education) Abbie Ramesh RN as Hospice Superintendent Future Scheduled Appointments No future appointments. [...] (02/05/2021 11:17 AM No Abbie Ramesh RN TUMBLERS SUPERVISOR) Note: Formatting of this note is [...] No Roschen, Abbie J, RN 11:14 AM TUMBLERS SUPERVISOR) Note: Formatting of this note is [...] CDT) athologist Signature Vitamin B-12 [phone] 06/15/2020 [facility] pg/mL 2:45 PM CDT [facility]ENTER [facility] Comment: [...] City/State/ZIP Code Phon e Number [facility] [address] [place] [address] Celiac Disease Serology [place] (06/15/2020 9:16 AM CDT) Patholo gist Method Time Signature Immunoglobulin A 313 61 [phone] 356 06/18/2020 [facility] (IgA) mg/dL 10:15 PM CDT LABORATORIES Interpretation - 06/18/2020 [facility] 10:15 PM CDT LABORATORIES Comment: Negative serology. Celiac disease unlike ly. However, approximately 10% of patients with casimiro c disease are seronegative. Also, patients who are alr claude adhering to a gluten-free diet may be seronegative. If celiac disease is highly clinically suspected, consider HL A-DQ typing. Test Performed by: [facility] [address] [facility] ([place], [place]), [place], [place] [address] Billing And Insurance Coordinator: Pradeep Parikh M.D. Ph. D.; CLIA# [id number] Specimen Anatomical Collection Method Collection Time Receive d Time (Source) Location / / Volume Laterality Blood 06/15/2020 9:16 AM 2:34 CDT PM CDT Antonio Madsen MD LAB BLOOD ORDERABLES Performing Organization Address City/State/ZIP Code Phon e Number [facility] see result attachment for specific address [...] satiety documented in this encounter Care Teams Racing Secretary And Handicapper Relationship Specialty Start Date End Date Corrine Vazquez MD PCP - General Family Medicine 07/07/19 08/19/[address] [place] [address] documented as of this encounter
--- OUTSIDE RECORDS SUMMARY | 2022-01-21 14:02 | XMS_ITS | Encounter Summary ---
:[address] [facility] Address [address] [place] [address] Care Team Providers Name Role Phone Corrine Vazquez MD Primary Care Provider Reason for Visit Reason Comments Medicare Annual Wellness Visit Subsequent Encounter Details Date Type Department Care Team Description 01/13/2020 Clinical Support [place] Medicare annual wellness [address] visit, subsequent [place], [place] [address] Social History Tobacco Use [...] Comments Blood Pressure 132/80 01/13/2020 2:10 PM LPN RN Pulse 86 01/13/2020 2:10 PM LPN RN Temperature 36.3 ??C (97.4 ??F) 01/13/2020 2:10 PM LPN RN Respiratory Rate 14 01/13/2020 2:10 PM LPN RN Oxygen Saturation 96% 01/13/2020 2:10 PM LPN RN Inhaled Oxygen Concentration - - Weight 81.6 kg (180 lb) 01/13/2020 2:10 PM LPN RN Height 160.3 cm (5' 3.11) 01/13/2020 2:10 PM LPN RN Body Mass Index 31.77 01/13/2020 2:10 PM LPN RN documented in this encounter Progress Notes Lana Knight LPN - 01/13/2020 2:40 PM CST Annual Wellness Visit CARE TEAM / RESOURCES: Patient Care Team: Corrine Vazquez MD as PCP - General (Family Medicine) JOSE DE JESUS Austin as Diabetes Management (Endocrinology) Yossi Potts, RN as Registered Nurse (Diabetes Education) Abbie Ramesh RN as Wheel Alignment Mechanic Eye Care: [facility] Dental Care: Dr. Caal Chilton Pharmacy: [facility] [address] [address] Other: Visit Vitals BP 132/80 (BP Location: [...] PO) Take by mouth Contains Zinc per Health Information Administrator. ??? nitroglycerin (NITROSTAT) 0.4 MG SL tablet [...] disease ??? Gout ??? Hyperlipidemia ??? Other jail (current) drug therapy ??? Paresthesia of skin [...] More than three times a week Attends quaker service: More than 4 times per year [...] done: The patient had this completed in [place] two months ago. Will request records. Osteoporosis [...] transfusion before 1991. ?? Those born between 3176-5450. Glaucoma: Medicare Part B (Medical Insurance) covers [...] of one pack a dayfor 30 years). RN documented in this encounter Plan of Treatment Not on filedocumented as of this encounter Goals Goal Patient Goal Associated Recent Patient-Stated? Author Type Problems Progress Routine Health General No change No Domitila, Management (02/05/2021 Abbie Murray, 11:19 AM LPN RN) RN Note: Formatting of this note is differe nt from the original. Routine Health Management Care Team Patient Care Team: Corrine Vazquez MD as [facility] - [facility] Yossi Potts, RN as Registered Nurse (Diabetes Education) Abbie Ramesh, RN as Wheel Alignment Mechanic Future Scheduled Appointments No future appointments. [...] [facility] Pneumococcal Vaccine: <64 Completed [facility] Pneumococcal Vaccine: 65+ Years Com pleted HPV Vaccines Aged Out Notes: Due: Urine Protein screening Eye exam AWV A1C Lipid panel Diabetes Management General No change (02/05/2021 11:17 AM No Abbie Ramesh, RN LPN RN) Note: Formatting of this note is differe [...] nt documented in this encounter Care Teams Taxation Consultant Relationship Specialty Start Date End Date Corrine Vazquez MD PCP - General Family Medicine 07/07/19 08/19/[address] [place] [address] documented as of this encounter
--- OUTSIDE RECORDS SUMMARY | 2022-01-21 14:02 | XMS_ITS | Encounter Summary ---
:1945 Author Organization [facility] Address [address] [place] [address] Care Team Providers Name Role Phone Corrine Vazquez MD Primary Care Provider Reason for Referral Consultation (Routine) - Closed Specialty Diagnoses / Procedures Referred By Contact Refer red To Contact Diagnoses Osteoporosis screening Corrine Vazquez MD [facility] [address] [place] [phone] Referral ID Status Reason Start Date Expiration Date Visits Requ ested Visits Authorized [id number] Closed 03/17/2020 03/17/2021 1 1 OL PHOTOGRAPH EDITOR Reason for Visit Reason Comments Diabetes Encounter Details Date Type Department Care Team Description 03/16/2020 Office Visit [place] Corrine Vazquez Osteoporosis screening (Prim lara Dx); [address] [place] Type 2 diabetes mellitus with other spec ified complication, with long-term current use of insulin ([facility]); [place], [place] [address] Essential hypertension; [phone] [place] Hypothyroidism, unspecified type; [place], [place] Anxiety; [phone] Type 2 diabetes mellitus with other spec ified complication, without long-term current use of insulin ([facility]) Social History Tobacco Use Types [...] Comments Blood Pressure 138/76 03/16/2020 9:09 AM SCHOOL PHOTOGRAPH EDITOR Pulse 88 03/16/2020 9:09 AM SCHOOL PHOTOGRAPH EDITOR Temperature 35.9 ??C (96.7 ??F) 03/16/2020 9:09 AM SCHOOL PHOTOGRAPH EDITOR Respiratory Rate 16 03/16/2020 9:09 AM SCHOOL PHOTOGRAPH EDITOR Oxygen Saturation 98% 03/16/2020 9:09 AM SCHOOL PHOTOGRAPH EDITOR Inhaled Oxygen Concentration - - Weight 82.1 kg (181 lb) 03/16/2020 9:09 AM SCHOOL PHOTOGRAPH EDITOR Height 160.3 cm (5' 3.11) 03/16/2020 9:09 AM SCHOOL PHOTOGRAPH EDITOR Body Mass Index 31.95 03/16/2020 9:09 AM SCHOOL PHOTOGRAPH EDITOR documented in this encounter Progress Notes Corrine [...] insulin. SECOND patient had her mammogram in [place] we do not have records on her [...] changes of medication and coordination of cares. OL PHOTOGRAPH EDITOR documented in this encounter Plan of Treatment Scheduled Referrals Name Type Priority Associated Diagnoses Order S chedule Ambulatory External Outpatient Referral Routine Osteoporosis O rdered: Referral screening 03/17/2020 documented as of this encounter Goals Goal Patient Goal Associated Recent Patient-Stated? Author Type Problems Progress Routine Health General No change Hailee Ramesh Management (02/05/2021 Abbie Murray, 11:19 AM SCHOOL PHOTOGRAPH EDITOR) RN Note: Formatting of this note is differe nt from the original. Routine Health Management Care Team Patient Care Team: Corrine Vazquez MD as PCP - General ([facility]) Yossi Potts, RN as Registered Nurse (Diabetes Education) Abbie Ramesh RN as Shag Truck Driver Future Scheduled Appointments No future appointments. Health Maintenance Health Maintenance Topic Date Due Urine Protein Screening 05/31/2020 Lipid Panel 09/05/2020 Glaucoma Screening 67+ Yr 12/25/2020 Ophthalmology Exam 12/25/2020 [facility] Annual Wellness 01/12/2021 Hemoglobin A1C 01/24/2021 Diabetic Foot Exam 03/16/2021 Colorectal Cancer Screening: Colonoscop y 05/21/2021 Fall Risk Performed 06/05/2021 Mammogram 12/03/2021 COVID-19 Vaccine Completed [facility] Pneumococcal Vaccine: <64 Completed [facility] Pneumococcal Vaccine: 65+ Years Com pleted HPV Vaccines Aged Out Notes: Due: Urine Protein screening Eye exam AWV A1C Lipid panel Diabetes Management General No change (02/05/2021 11:17 AM No Abbie Ramesh, RN SCHOOL PHOTOGRAPH EDITOR) Note: Formatting of this note is [...] this encounter Results TSH (03/16/2020 10:17 AM SCHOOL PHOTOGRAPH EDITOR) P athologist Signature TSH, Sensitive 1.59 0.46 - 03/16/2020 [facility] ROSARIO L 4.68 mIU/L 6:59 PM SCHOOL PHOTOGRAPH EDITOR [facility] Comment: The results from this [...] Laterality Blood 03/16/2020 10:17 03/16/2020 5:59 AM SCHOOL PHOTOGRAPH EDITOR PM SCHOOL PHOTOGRAPH EDITOR D. [place] Vazquez MD LAB BLOOD ORDERABLES Performing Organization Address City/State/ZIP Code Phon e Number [facility] [address] [place] [address] documented in this encounter Visit Diagnoses Diagnosis [...] (HCC) documented in this encounter Care Teams Medical Payment Poster Relationship Specialty Start Date End Date Corrine Vazquez MD PCP - General Family Medicine 07/07/19 08/19/[address] [place] [address] documented as of this encounter
--- OUTSIDE RECORDS SUMMARY | 2022-01-21 14:02 | XMS_ITS | Encounter Summary ---
:1945 Author Organization [facility] Address [address] [place] [address] Care Team Providers Name Role Phone Corrine Vazquez MD Primary Care Provider Encounter Details Date Type Department Care Team Description 03/16/2020 Lab [place] Hypothyroidism, unspecified type; [address] Type 2 diabetes mellitus wit h other specified complication, without long-term current use of insulin (HCC); [place], [place] [address] Type 2 diabetes mellitus wit h other specified complication, with long-term current use of insulin (HCC); [phone] Stage 3 chronic kidney disease; Abnormal liver [...] many times do you More than three agapiot es a week 12/23/2018 talk on the [...] Peter Monzon (02/05/2021 Abbie Murray, 11:19 AM FAGOT MAKER) RN Note: Formatting of this note is differe nt from the original. Routine Health Management Care Team Patient Care Team: Corrine Vazquez MD as PCP - General ([facility]) Yossi Potts, RN as Registered Nurse (Diabetes Education) Abbie Ramesh, RN as Clay Puddler Future Scheduled Appointments No future appointments. Health [...] change (02/05/2021 11:17 AM Abbie Monzon, RN FAGOT MAKER) Note: Formatting of this note is [...] diabetes Results for this FILTRATION RATE AM FAGOT MAKER mellitus with other proce dure are in specified the results complication, section. without long-term current use of insulin (HCC) CBC Routine 03/16/2020 10:17 Type 2 diabetes Results for this AM FAGOT MAKER mellitus with other procedur e are in specified the results complication, with section. long-term current use of insulin ( HCC) Stage 3 chronic kidney disease Abnormal liver function test TSH Routine 03/16/2020 10:17 Hypothyroidism, Results for this AM FAGOT MAKER unspecified type procedure a re in the results section. HEMOGLOBIN A1C Routine 03/16/2020 10:17 Type 2 diabetes Result s for this AM FAGOT MAKER mellitus with other procedur e are in specified the results complication, section. without long-term current use of insulin (HCC) HEPATIC FUNCTION Routine 03/16/2020 10:17 Type 2 diabetes Resu lts for this PANEL AM FAGOT MAKER mellitus with other procedur e are in specified the results complication, with section. long-term current use of insulin ( HCC) Mixed hyperlipid emia Abnormal liver function test BASIC METABOLIC Routine 03/16/2020 10:17 Type 2 diabetes Resul ts for this PANEL AM FAGOT MAKER mellitus with other procedur e are in specified the results complication, section. without long-term current use of insulin (HCC) documented in this encounter Results (ABNORMAL) Glomerular filtration rate (GFR) (03/16/2020 10:17 AM FAGOT MAKER) P athologist Signature GFR 44 (A) 03/16/2020 [facility] 6:25 PM FAGOT MAKER [facility] 53 (A) 03/16/2020 [facility] [place] GFR 6:25 PM FAGOT MAKER [facility] Comment: GFR calculated from serum creatinine v alue Chronic Kidney Disease less than 60 mL/m in/1.73 m2 Kidney Failure less than 15 mL/min/1.73 m2 Note: effective 07/01/06 IDMS-Traceable MDRD Study Equation used. Specimen Anatomical Collection Method Collection Time Receive d Time (Source) Location / / Volume Laterality 03/16/2020 10:17 03/16/2020 AM FAGOT MAKER 10:17 AM FAGOT MAKER Corrine Vazquez MD LAB BLOOD ORDERABLES Performing Organization Address City/[facility]/ZIP Code Phon e Number [facility] [address] [place] [phone] Liver panel (03/16/2020 10:17 AM FAGOT MAKER) P athologist Signature Total Protein 7.7 6.3 - 8.2 03/16/2020 [facility] g/dL 6:25 PM [facility] Albumin, Serum 4.2 3.5 - 5.0 03/16/2020 [facility] g/dL 6:25 PM [facility] Total Bilirubin <0.7 0.1 - 1.0 03/16/2020 [facility] mg/dL 6:25 PM [facility] Bilirubin, <0.1 0.0 - 0.3 03/16/2020 [facility] Direct mg/dL 6:25 PM [facility] AST 27 8 - 43 U/L 03/16/2020 [facility] 6:25 PM [facility] Alkaline 66 38 - 128 03/16/2020 [facility] Phosphatase U/L 6:25 PM [facility] ALT (SGPT) 21 0 - 34 U/L 03/16/2020 [facility] 6:25 PM [facility] Specimen Anatomical Collection Method Collection Time Receive d Time (Source) Location / / Volume Laterality Blood 03/16/2020 10:17 03/16/2020 5:59 AM FAGOT MAKER PM FAGOT MAKER Bacilio DELA CRUZ LAB BLOOD ORDERABLES Performing Organization Address City/[facility]/ZIP [facility] Phon e Number [facility] [address] [place] [address] (ABNORMAL) CBC ([facility]) (03/16/2020 10:17 AM FAGOT MAKER) P athologist Signature WBC 7.1 3.5 - 10.5 03/16/2020 [facility] K/uL 10:23 AM FAGOT MAKER [place] RBC 3.91 3.90 - 5.00 03/16/2020 [facility] M/uL 10:23 AM FAGOT MAKER [place] Hemoglobin 11.5 (L) 12.0 - 15.5 03/16/2020 [facility] g/dL 10:23 AM FAGOT MAKER [place] Hematocrit 35.5 35.0 - 44.0 03/16/2020 [facility] % 10:23 AM FAGOT MAKER [place] Platelets 199 150 - 450 03/16/2020 [facility] K/uL 10:23 AM FAGOT MAKER [place] MCV 90.8 81.6 - 98.3 03/16/2020 [facility] fL 10:23 AM FAGOT MAKER [place] MCH 29.4 26.0 - 32.0 03/16/2020 [facility] pg 10:23 AM FAGOT MAKER [place] MCHC 32.4 32.0 - 36.0 03/16/2020 [facility] g/dL 10:23 AM FAGOT MAKER [place] RDW 13.2 11.9 - 15.5 03/16/2020 [facility] % 10:23 AM FAGOT MAKER [place] Specimen Anatomical Collection Method Collection Time Receive d Time (Source) Location / / Volume Laterality Blood 03/16/2020 10:17 03/16/2020 AM FAGOT MAKER 10:21 AM FAGOT MAKER Bacilio DELA CRUZ LAB BLOOD ORDERABLES Performing Organization Address City/State/ZIP Code Phon e Number [facility] [place] [address] [place] [address] (ABNORMAL) Hemoglobin A1c (03/16/2020 10:17 AM FAGOT MAKER) Analysis Performed At Patho logist Time Signature Hemoglobin A1C 8.5 (H) 4.0 - 5.6 03/16/2020 [facility] % A1C 6:26 PM [facility] Comment: Reference Range 4.0-5.6% [...] Laterality Blood 03/16/2020 10:17 03/16/2020 5:59 AM FAGOT MAKER PM FAGOT MAKER Corrine Vazquez MD LAB BLOOD ORDERABLES Performing Organization Address City/[facility] [place] Phon e Number [facility] [address] [place] [address] (ABNORMAL) Basic metabolic panel (03/16/2020 10:17 AM FAGOT MAKER) Analysis Performed At Patho logist Time Signature Sodium 138 135 - 145 03/16/2020 [facility] mEq/L 6:25 PM [facility] Potassium 4.1 3.5 - 5.1 03/16/2020 [facility] mEq/L 6:25 PM [facility] Chloride 104 98 - 107 03/16/2020 [facility] mEq/L 6:25 PM [facility] CO2 26 22 - 29 03/16/2020 [facility] mmol/L 6:25 PM [facility] Creatinine 1.2 0.4 - 1.2 03/16/2020 [facility] mg/dL 6:25 PM [facility] BUN 27 (H) 5 - 25 03/16/2020 [facility] mg/dL 6:25 PM [facility] Glucose 154 (H) 70 - 100 03/16/2020 [facility] mg/dL 6:25 PM [facility] Calcium, 10.1 8.4 - 10.2 03/16/2020 [facility] Total,S mg/dL 6:25 PM [facility] Fasting? No 03/16/2020 [facility] 10:21 AM [place] Specimen Anatomical Collection Method Collection Time Receive d Time (Source) Location / / Volume Laterality Blood 03/16/2020 10:17 03/16/2020 5:59 AM FAGOT MAKER PM FAGOT MAKER Corrine Vazquez MD LAB BLOOD ORDERABLES Performing Organization Address City/[facility] [place] Phon e Number [facility] [place] [address] [place] [address] [facility] [address] [place] [address] LABORATORY TSH (03/16/2020 10:17 AM FAGOT MAKER) P athologist Signature TSH, Sensitive 1.59 0.46 - 03/16/2020 IBISSHEREE STEELEA L 4.68 mIU/L 6:59 PM FAGOT MAKER [facility] Comment: The results from this [...] Laterality Blood 03/16/2020 10:17 03/16/2020 5:59 AM FAGOT MAKER PM FAGOT MAKER DJairo Vazquez MD LAB BLOOD ORDERABLES Performing Organization Address City/State/ZIP Code Phon e Number [facility] [address] [place] [phone] documented in this encounter Visit Diagnoses Diagnosis [...] hyperlipidemia documented in this encounter Care Teams Hand Cutter Relationship Specialty Start Date End Date Corrine Vazquez MD PCP - General Family Medicine 07/07/19 08/19/[address] [place] [address] documented as of this encounter
--- OUTSIDE RECORDS SUMMARY | 2022-01-21 14:02 | XMS_ITS | Encounter Summary ---
:1945 Author Organization [facility] Address [address] [place] [address] Care Team Providers Name Role Phone Corrine [...] MD Care Coordination [address] [facility] [address] [place] [address] [address] [place], [place] [phone] Referral ID Status Reason Start Date Expiration Date Visits V isits Requested Authorized [id number] Closed Specialty 02/21/2020 03/18/2021 99 99 Services Required Encounter Details Date Type Department Care Team Description 03/23/2020 Patient Outreach SE Care Coordination Abbie Ramesh Counseling and coordination of care (Primary Dx); [address] [place] [address] ERA Murray Essential hypertension; [place] [address] [address] Type 2 diabetes mellitus wit h other specified complication, with long-term current use of insulin (HCC) [phone] [place] [address] Social History Tobacco Use Types [...] is first attempt to call this month. RAL ASSIGNMENT REPORTER Angie Bynum RN - 03/23/2020 2:40 PM CST Pt left her name phone number and on CCM VM. No other. Information. RAL ASSIGNMENT REPORTER Abbie Ramesh RN - 03/23/2020 2:40 PM [...] Cardiology; [facility]) Dr. Vazquez Last: 03/16/20 [...] Nurse (Diabetes Education) Abbie Ramesh RN as Hydroelectric Station Operator Future Scheduled Appointments No future appointments. Health Maintenance Health Maintenance Topic Date Due ??? Glaucoma Screening 67+ Yr 12/18/2019 ??? Urine Protein Screening 05/31/2020 ??? Hemoglobin A1C 06/14/2020 ??? Lipid Panel 09/05/2020 ??? Mammogram 12/01/2020 ??? Ophthalmology Exam 12/25/2020 ??? Fall Risk Performed 01/12/2021 ??? [facility] Wellness 01/12/2021 ??? Diabetic Foot Exam 03/16/2021 ??? Colorectal Cancer Screening: Colonoscopy 05/21/2021 ??? [facility] Pneumococcal Vaccine: 65+ Years Completed ? ? [facility] Pneumococcal Vaccine: <64 Aged Out ??? HPV Vaccines Aged Out Notes: Eye exam due 1 Progress evaluated against: Health Maintenance RAL ASSIGNMENT REPORTER Corrine Vazquez MD - 03/23/2020 2:40 PM CST Call Luclemencia and let her know that it is okay for her to just start taking the 5 mg tablets once a day at this time. If it is hard to cut them into she can dispense with this part of the instructions. RAL ASSIGNMENT REPORTER Margareth Sanchez RN - 03/23/2020 2:40 PM CST Patient informed. RAL ASSIGNMENT REPORTER documented in this encounter Plan of Treatment Not on filedocumented as of this encounter Goals Goal Patient Goal Associated Recent Patient-Stated? Author Type Problems Progress Routine Health General No change No Domitila, Management (02/05/2021 Abbie Murray, 11:19 AM GENERAL ASSIGNMENT REPORTER) RN Note: Formatting of this note is differe nt from the original. Routine Health Management Care Team Patient Care Team: Corrine Vazquez MD as PCP - General ([facility] Medicine) Yossi Potts, RN as Registered Nurse (Diabetes Education) Abbie Ramesh RN as Hydroelectric Station Operator Future Scheduled Appointments No future appointments. [...] 11:17 AM No Abbie Ramesh, RN GENERAL ASSIGNMENT REPORTER) Note: Formatting of this note is [...] track (02/05/2021 Abbie Monzon RN 11:14 AM GENERAL ASSIGNMENT REPORTER) Note: Formatting of this note is [...] (HCC) documented in this encounter Care Teams Returned Case Inspector Relationship Specialty Start Date End Date Corrine Vazquez MD PCP - General Family Medicine 07/07/19 08/19/[address] [place] [address] documented as of this encounter
--- OUTSIDE RECORDS SUMMARY | 2022-01-21 14:02 | XMS_ITS | Encounter Summary ---
:1945 Author Organization [facility] Address [address] [place] [address] Care Team Providers Name Role Phone Corrine Vazquez MD Primary Care Provider Reason for Visit Reason Onset Date Comments Appointment 03/08/2020 Encounter Details Date Type Department Care Team Description 03/08/2020 Telephone [place] Corrine Vazquez MD Appointment [address] [facility] [address] [place], [place] [address] [place], [place] [phone] (Wo rk) Social History Tobacco Use Types [...] CST Information printed and mailed to patient. DISTRIBUTION AND EMERGENCY CLERK Telephone Encounter - Margareth Sanchez RN - 04/02/2020 10:32 AM CST Reviewed osteopenia in up to date, information not beneficial for this situation. Dr. Madsen, do you know how to look up education material within [employer] for osteopenia that we can print for this patient? DISTRIBUTION AND EMERGENCY CLERK Telephone Encounter - Corrine Vazquez MD - 04/02/2020 10:10 AM CST Can you check with [facility] orthopedic department to see if they have any general pamphlets or information that can be sent to [facility] in regard to osteopi??a and osteoporosis. Or you could search up-to-date and come up with some information as well. Thanks DISTRIBUTION AND EMERGENCY CLERK Telephone Encounter - Margareth Sanchez RN - 04/02/2020 8:06 AM CST Patient informed, she questions if you can send her some information on Osteopenia so she can learn more about it? DISTRIBUTION AND EMERGENCY CLERK Telephone Encounter - Margareth Sanchez RN - 03/08/2020 1:38 PM CST FYI DISTRIBUTION AND EMERGENCY CLERK Telephone Encounter - Luciana Albarado - 03/08/2020 12:14 PM CST Appt scheduled for 03/16/20 as requested. DISTRIBUTION AND EMERGENCY CLERK Telephone Encounter - Margareth Sanchez RN - 03/08/2020 11:47 AM CST Patient is due for a mammogram and a diabetic recheck with foot exam and nonfasting labs. Please call patient to schedule. DISTRIBUTION AND EMERGENCY CLERK documented in this encounter Plan of Treatment Not on filedocumented as of this encounter Goals Goal Patient Goal Associated Recent Patient-Stated? Author Type Problems Progress Routine Health General No change Peter Monzon (02/05/2021 Abbie Murray, 11:19 AM GAS DISTRIBUTION AND EMERGENCY CLERK) RN Note: Formatting of this note is differe nt from the original. Routine Health Management Care Team Patient Care Team: Corrine Vazquez MD as PCP - General ([facility] Medicine) Yossi Potts, ERA as Registered Nurse (Diabetes Education) Abbie Ramesh, ERA as Legal Recovery Specialist Future Scheduled Appointments No future appointments. [...] change (02/05/2021 11:17 AM Abbie Monzon, RN GAS DISTRIBUTION AND EMERGENCY CLERK) Note: Formatting of this note is [...] on filedocumented in this encounter Care Teams Engineer Relationship Specialty Start Date End Date Corrine Vazquez MD PCP - General Family Medicine 07/07/19 08/19/[address] [place] [address] documented as of this encounter
--- OUTSIDE RECORDS SUMMARY | 2022-01-21 14:03 | XMS_ITS | Encounter Summary ---
:[address] [facility] Address [address] [place] [address] Care Team Providers Name Role Phone Corrine Vazquez MD Primary Care Provider Reason for Visit Reason Onset Date Comments Med Refill 12/28/2019 Encounter Details Date Type Department Care Team Description 12/28/2019 Telephone [place] Corrine Vazquez MD Med Refill [address] [place], [place] [address] [place], [place] [phone] (Wo rk) Social History Tobacco Use Types [...] 12/28/2019 2:34 PM CST RX faxed to [place] [facility] [phone] EY SUPERINTENDENT Telephone Encounter - Margareth Sanchez RN - 12/28/2019 2:09 PM CST Please fax Rx to [facility] EY SUPERINTENDENT Telephone Encounter - Margareth Sanchez RN - 12/28/2019 8:36 AM CST Please review rx request. EY SUPERINTENDENT documented in this encounter Plan of Treatment Not on filedocumented as of this encounter Goals Goal Patient Goal Associated Recent Patient-Stated? Author Type Problems Progress Routine Health General No change Peter Monzon (02/05/2021 Abbie Murray, 11:19 AM SURVEY SUPERINTENDENT) RN Note: Formatting of this note is differe nt from the original. Routine Health Management Care Team Patient Care Team: Corrine Vazquez MD as [facility]CP - [facility] Yossi Potts, RN as Registered Nurse (Diabetes Education) Abbie Ramesh, ERA as Adjuster Leader Future Scheduled Appointments No future appointments. Health Maintenance Health Maintenance Topic Date Due Urine Protein Screening 05/31/2020 Lipid Panel 09/05/2020 Glaucoma Screening 67+ Yr 12/25/2020 Ophthalmology Exam 12/25/2020 [facility] [place] 01/12/2021 Hemoglobin A1C 01/24/2021 Diabetic Foot Exam 03/16/2021 Colorectal Cancer Screening: Colonoscop y 05/21/2021 Fall Risk Performed 06/05/2021 Mammogram 12/03/2021 COVID-19 Vaccine Completed [facility] Pneumococcal Vaccine: <64 Completed [facility] Pneumococcal Vaccine: 65+ Years Com pleted HPV Vaccines Aged Out Notes: Due: Urine Protein screening Eye exam AWV A1C Lipid panel Diabetes Management General No change (02/05/2021 11:17 AM Abbie Monzon, RN SURVEY SUPERINTENDENT) Note: Formatting of this note is [...] Primary documented in this encounter Care Teams Admissions Consultant Relationship Specialty Start Date End Date Corrine Vazquez MD PCP - General Family Medicine 07/07/19 08/19/[address] [place] [address] documented as of this encounter
--- OUTSIDE RECORDS SUMMARY | 2022-01-21 14:03 | XMS_ITS | Encounter Summary ---
:[address] [facility] Address [address] [place] [address] Care Team Providers Name Role Phone Corrine Vazquez MD Primary Care Provider Reason for Visit Reason Onset Date Comments Diabetes numbers low 11/01/2019 Encounter Details Date Type Department Care Team Description 11/01/2019 Telephone [place] Corrnie Vazquez, Diabetes numbers low [address] [place], [place] [address] [phone] [place] [address] Social History Tobacco Use Types Packs/Day Years [...] lower than normal. Please call Pt at [phone] to advise. documented in this encounter Plan of Treatment Not on filedocumented as of this encounter Goals Goal Patient Goal Associated Recent Patient-Stated? Author Type Problems Progress Routine Health General No change Hailee Ramesh Management (02/05/2021 Abbie Murray, 11:19 AM LEGISLATIVE ANALYST) RN Note: Formatting of this note is differe nt from the original. Routine Health Management Care Team Patient Care Team: Corrine Vazquez MD as PCP - General ([facility]) Yossi Potts, RN as Registered Nurse (Diabetes Education) Abbie Ramesh, RN as Dietary Service Aide Future Scheduled Appointments No future appointments. Health Maintenance Health Maintenance Topic Date Due Urine Protein Screening 05/31/2020 Lipid Panel 09/05/2020 Glaucoma Screening 67+ Yr 12/25/2020 Ophthalmology Exam 12/25/2020 [facility] [place] Wellness 01/12/2021 Hemoglobin A1C 01/24/2021 Diabetic Foot Exam 03/16/2021 Colorectal Cancer Screening: Colonoscop y 05/21/2021 Fall Risk Performed 06/05/2021 Mammogram 12/03/2021 COVID-19 Vaccine Completed [facility] [place] Pneumococcal Vaccine: <64 Completed [facility] Pneumococcal Vaccine: 65+ Years Com pleted HPV Vaccines Aged Out Notes: Due: Urine Protein screening Eye exam AWV A1C Lipid panel Diabetes Management General No change (02/05/2021 11:17 AM No Abbie Ramesh, RN LEGISLATIVE ANALYST) Note: Formatting of this note is [...] on filedocumented in this encounter Care Teams Competitive Intelligence Manager Relationship Specialty Start Date End Date Corrine Vazquez MD PCP - General Family Medicine 07/07/19 08/19/[address] [place] [address] documented as of this encounter
--- OUTSIDE RECORDS SUMMARY | 2022-01-21 14:03 | XMS_ITS | Encounter Summary ---
:1945 Author Organization [facility] Address [address] [place] [address] Care Team Providers Name Role Phone Corrine Vazquez MD Primary Care Provider Reason for Visit Reason Onset Date Comments Blood sugar numbers 11/07/2019 Encounter Details Date Type Department Care Team Description 11/07/2019 Telephone [place] Corrine Vazquez, Blood sugar numbers [address] [facility] [address] [place], [place] [address] [phone] [place] [address] (Wo rk) Social History Tobacco Use Types [...] in to see her heart doctor at [facility] Dr. Currie about a week or so [...] numbers were low and she felt terrible. 9/20 AM 93 (only took one Glipizide) 11/05 Noon 145 11/05 Even 138 11/04 AM 95 11/04 Roz494 11/04 HS 185 11/03 AM 104 11/03 Noon 103 11/03 Ofelia 120 9/18 HS 187 11/02 AM 91 9/ HS 133 9 AM 92 11/01 Noon 181 11/01 HS 295 Telephone Encounter - Luciana Verena - 11/07/2019 8:26 AM CDT Pt called per Dr. Vazquez request to give her blood sugar numbers. Please call Pt at [phone] to advise. documented in this encounter Plan of Treatment Not on filedocumented as of this encounter Goals Goal Patient Goal Associated Recent Patient-Stated? Author Type Problems Progress Routine Health General No change Peter Monzon (02/05/2021 Abbie Murray, 11:19 AM PRESCRIPTION CLERK LENSES) RN Note: Formatting of this note is differe nt from the original. Routine Health Management Care Team Patient Care Team: Corrine Vazquez MD as [facility] - [facility] Yossi Potts RN as Registered Nurse (Diabetes Education) Abbie Ramesh RN as Name Plate Stamper Future Scheduled Appointments No future appointments. [...] Management General No change (02/05/2021 11:17 AM Abibe Monzon, RN PRESCRIPTION CLERK LENSES) Note: Formatting of this note is differe [...] on filedocumented in this encounter Care Teams Mess Attendant Relationship Specialty Start Date End Date Corrine Vazquez MD PCP - General Family Medicine 07/07/19 08/19/21 [address] [place] [address] documented as of this encounter
--- OUTSIDE RECORDS SUMMARY | 2022-01-21 14:03 | XMS_ITS | Encounter Summary ---
:1945 Author Organization [facility] Address [address] [place] [address] Care Team Providers Name Role Phone Corrine Vazquez MD Primary Care Provider Reason for Visit Reason Comments Diabetes Encounter Details Date Type Department Care Team Description 10/28/2019 Office Visit [place] Corrine Vazquez Type 2 diabetes mellitus wit h other specified complication, with long-term current use of insulin (HCC) (Primary Dx); [address] [place] Mixed hyperlipidemia; ABEBA [place] [address] Anemia, unspecified type; [phone] [place] Type 2 diabetes mellitus with other spec ified complication, without long-term current use of insulin (HCC); [place]ie [place] Hypothyroid ism, unspecified type [phone] Social History Tobacco Use Types Packs/Day Years [...] CDT documented in this encounter Progress Notes D. [place] Vazquez MD - 10/28/2019 8:00 AM CDT Estab Patient Visit Subjective Patient ID: Marcial Adams is a 74 y.o. female. HPI the patient is here today for medication review renewal of medications and any laboratory test that would be needed. The patient is our 74-year-old individual who has been seeing [facility] endocrinology department we are closer for her [...] 30 days this medications prescribed by her packager hand Xanax 0.5 mg tablet she takes just a small amount couple times a month Calcium and vitamin D supplements Ferrous sulfate 325 once daily Glipizide extended release 10 mg 1 twice daily Basil Angelic insulin 22 units daily Arava 20 mg tablet daily prescribed by her packager hand Levothyroxine 75 mcg daily Crestor 5 mg [...] Domitila, Management (02/05/2021 Abbie Murray, 11:19 AM SUB ASSEMBLY TEAM WORKER) RN Note: Formatting of this note is differe nt from the original. Routine Health Management Care Team Patient Care Team: Corrine Vazquez MD as PCP - General ([facility]) Yossi Potts RN as Registered Nurse (Diabetes Education) Abbie Ramesh RN as Disability Manager Future Scheduled Appointments No future appointments. [...] (02/05/2021 11:17 AM No Abbie Ramesh RN SUB ASSEMBLY TEAM WORKER) Note: Formatting of this note is [...] (ABNORMAL) Basic metabolic panel (03/16/2020 10:17 AM [facility]) Analysis Performed At Patho logist Time Signature Sodium 138 135 - 145 03/16/2020 [facility] mEq/L 6:25 PM [facility] Potassium 4.1 3.5 - 5.1 03/16/2020 [facility] mEq/L 6:25 PM [facility] Chloride 104 98 - 107 03/16/2020 [facility] mEq/L 6:25 PM [facility] CO2 26 22 - 29 03/16/2020 [facility] mmol/L 6:25 PM [facility] Creatinine 1.2 0.4 - 1.2 03/16/2020 [facility] mg/dL 6:25 PM [facility] BUN 27 (H) 5 - 25 03/16/2020 [facility] mg/dL 6:25 PM [facility] Glucose 154 (H) 70 - 100 03/16/2020 [facility] mg/dL 6:25 PM [facility] Calcium, 10.1 8.4 - 10.2 03/16/2020 [facility] Total,S mg/dL 6:25 PM [facility] Fasting? No 03/16/2020 [facility] 10:21 AM [facility]3] Specimen Anatomical Collection Method Collection Time Receive d Time (Source) Location / / Volume Laterality Blood 03/16/2020 10:17 03/16/2020 5:59 AM [facility] PM SUB ASSEMBLY TEAM WORKER D. [place] Vazquez MD LAB BLOOD ORDERABLES Performing Organization Address City/State/ZIP Code Phon e Number [facility] [address] [place] [address] [facility] [address] [place] [address] LABORATORY (ABNORMAL) Hemoglobin A1c (03/16/2020 10:17 AM [facility]) Analysis Performed At Patho logist Time Signature Hemoglobin A1C 8.5 (H) 4.0 - 5.6 03/16/2020 [facility] % A1C 6:26 PM [facility] Comment: Reference Range 4.0-5.6% [...] Laterality Blood 03/16/2020 10:17 03/16/2020 5:59 AM SUB ASSEMBLY TEAM WORKER PM SUB ASSEMBLY TEAM WORKER Corrine Vazquez MD LAB BLOOD ORDERABLES Performing Organization Address City/State/ZIP Code Phon e Number [facility] [address] [place] [address] documented in this encounter Visit Diagnoses Diagnosis Type 2 diabetes mellitus with other spec ified complication, with long-term current use of insulin (HCC) - Primary Mixed hyperlipidemia Anemia, unspecified type Type 2 diabetes mellitus with other spec ified complication, without long-term current use of insulin (HCC) Hypothyroidism, unspecified type documented in this encounter Care Teams Rotary Drill Operator Helper Relationship Specialty Start Date End Date Corrine Vazquez MD PCP - General Family Medicine 07/07/19 08/19/21 [address] [place] [address] documented as of this encounter
--- OUTSIDE RECORDS SUMMARY | 2022-01-21 14:03 | XMS_ITS | Encounter Summary ---
:1945 Author Organization [facility] Address [address] [place] [address] Care Team Providers Name Role Phone Corrine Vazquez MD Primary Care Provider Reason for Visit Consultation (Routine) - Closed Specialty Diagnoses / Procedures Referred By Contact Refer red To Contact Diagnoses Medicare annual wellness visit, initial Corrine Vazquez MD Care Coordination [address] [place], [place] [phone] Referral ID Status Reason Start Date Expiration Date Visits V isits Requested Authorized [id number] Closed Specialty 12/23/2018 99 99 Services Required Encounter Details Date Type Department Care Team Description 10/06/2019 Patient Outreach SE Care Coordination Abbie Ramesh Counseling and coordination of care (Primary Dx); [address] [facility] Terri RN Type 2 diabetes mellitus with other spec ified complication, with long-term current use of insulin ([facility]); [place] [address] [address] Rheumatoid arthritis, involv ing unspecified site, unspecified rheumatoid factor presence ([facility]); [phone] [facility] Mixed hyperlipidemia; [place], [place] Rheumatoid art hritis, involving unspecified site, unspecified whether rheumatoid factor present ([facility]) [id number] Social History Tobacco Use Types Packs/Day [...] 12/18/2019 ??? Fall Risk Performed 12/24/2019 ??? [facility] Annual Wellness 12/24/2019 ??? [...] 09/12/2019 10:00 AM [facility] Yossi Potts RN - 10/06/2019 3:00 PM CDT If we need to add another insulin. Yes. documented in this encounter Plan of Treatment Not on filedocumented as of this encounter Goals Goal Patient Goal Associated Recent Patient-Stated? Author Type Problems Progress Routine Health General No change No Domitila, Management (02/05/2021 Abbie Murray, 11:19 AM LAP LAYER) RN Note: Formatting of this note is differe nt from the original. Routine Health Management Care Team Patient Care Team: Corrine Vazquez MD as PCP - General ([facility] Medicine) Yossi Potts, RN as Registered Nurse (Diabetes Education) Abbie Ramesh, ERA as Rescue Instructor Future Scheduled Appointments No future appointments. [...] (02/05/2021 11:17 AM No Abbie Ramesh, RN LAP LAYER) Note: Formatting of this note is [...] hyperlipidemia documented in this encounter Care Teams Billing Control Clerk Relationship Specialty Start Date End Date Corrine Vazquez MD PCP - General Family Medicine 07/07/19 08/19/[address] [place] [address] documented as of this encounter
--- OUTSIDE RECORDS SUMMARY | 2022-01-21 14:03 | XMS_ITS | Encounter Summary ---
:1945 Author Organization [facility] Address [address] [place] [address] Care Team Providers Name Role Phone Corrine Vazquez MD Primary Care Provider Encounter Details Date Type Department Care Team Description 09/06/2019 Lab [place] Type 2 diabetes mellitus wit h other specified complication, with long-term current use of insulin (HCC); [address] Mixed hyperlipidemia; [place], [place] [address] Essential hypertension; [phone] Stage 3 chronic kidney disease (HCC) Social [...] Domitila, Management (02/05/2021 Abbie Murray, 11:19 AM HYDRAULIC MINER) RN Note: Formatting of this note is differe nt from the original. Routine Health Management Care Team Patient Care Team: Corrine Vazquez MD as PCP - General ([facility] Medicine) Yossi Potts, RN as Registered Nurse (Diabetes Education) Abbie Ramesh, RN as Rn Hospital Future Scheduled Appointments No future appointments. Health [...] (02/05/2021 11:17 AM No Abbie Ramesh, RN HYDRAULIC MINER) Note: Formatting of this note is differe [...] P athologist Signature GFR 37 (A) 09/06/2019 [facility] 8:31 AM CDT [facility] 45 (A) 09/06/2019 [facility] Brazilian GFR 8:31 AM CDT [facility] Comment: GFR calculated from serum creatinine v alue Chronic Kidney Disease less than 60 mL/m in/1.73 m2 Kidney Failure less than 15 mL/min/1.73 m2 Note: effective 07/01/06 IDMS-Traceable MDRD Study Equation used. Specimen Anatomical Collection Method Collection Time Receive d Time (Source) Location / / Volume Laterality 09/06/2019 8:08 AM 0 8:08 CDT AM CDT Bacilio Stewart [facility] LAB BLOOD ORDERABLES Performing Organization Address City/[facility]/ZIP Code Phon e Number [facility] [address] [place] [address] (ABNORMAL) Liver panel (09/06/2019 8:08 AM CDT) Analysis Performed At Patho logist Time Signature Total Protein 7.6 6.3 - 8.2 09/06/2019 [facility] g/dL 3:02 PM [facility] Albumin, Serum 4.0 3.5 - 5.0 09/06/2019 [facility] g/dL 3:02 PM [facility] Total Bilirubin <0.7 0.1 - 1.0 09/06/2019 [facility] mg/dL 3:02 PM [facility] Bilirubin, <0.1 0.0 - 0.3 09/06/2019 [facility] Direct mg/dL 3:02 PM [facility] AST 28 8 - 43 U/L 09/06/2019 [facility] 3:02 PM [facility] Alkaline 99 38 - 128 09/06/2019 [facility] Phosphatase U/L 3:02 PM [facility] ALT (SGPT) 52 (H) 0 - 34 U/L 09/06/2019 [facility] 3:02 PM [facility] Specimen Anatomical Collection Method Collection Time Receive d Time (Source) Location / / Volume Laterality Blood 09/06/2019 8:08 AM 0 1:16 CDT PM CDT Bacilio Stewart [facility] LAB BLOOD ORDERABLES Performing Organization Address City/State/ZIP Code Phon e Number [facility] [address] [place] [phone] (ABNORMAL) Basic metabolic panel (09/06/2019 8:08 AM CDT) P athologist Signature Sodium 139 135 - 145 09/06/2019 [facility] mmol/L 8:31 AM CDT [facility] Potassium 4.0 3.5 - 5.1 09/06/2019 [facility] mmol/L 8:31 AM CDT [place] Comment: . Chloride 103 98 - 107 mmol/L 09/06/2019 8:31 AM CDT [facility] JAMES CUELL[facility] Comment: . CO2 28 22 - 29 mmol/L 09/06/2019 8:31 AM CDT Deana CUELLAR Comment: . Creatinine 1.4 (H) 0.4 - 1.2 mg/dL 09/06/2019 8:31 AM CDT [facility] Comment: . BUN 28 (H) 5 - 25 mg/dL 09/06/2019 8:31 AM CDT [facility] Comment: . Glucose 157 (H) 70 - 100 mg/dL 09/06/2019 8:31 AM CDT [facility] Calcium, Total,S 9.7 8.4 - 10.2 mg/dL 09/06/2019 8:31 AM CDT [facility] Comment: . Specimen Anatomical Collection Method Collection Time Receive d Time (Source) Location / / Volume Laterality Blood 09/06/2019 8:08 AM 0 8:20 CDT AM CDT Bacilio [facility] LAB BLOOD ORDERABLES Performing Organization Address City/State/ZIP Code Phon e Number [facility] JAMES CUELLAR [address] [place] [address] (ABNORMAL) Hemoglobin A1c (09/06/2019 8:08 AM CDT) [...] [facility] [address] [place] [address] (ABNORMAL) Lipid panel (09/06/2019 8:08 AM CDT) athologist Signature Cholesterol 183 0 - 199 09/06/2019 [facility] mg/dL 3:02 PM T [facility] Comment: Recommended by National Cholesterol Education Program (ATP III) -------- Cholesterol Ranges -------- <200 ? Desirable 200-239 ? Borderline high >=240 ? High Triglycerides 234 (A) 0 - 149 mg/dL 09/06/2019 3:02 PM CDT [facility] Comment: -------- TRIG Ranges -------- <150 ?Normal 150-199 ? Borderline high 200-499 ? High >=500 ? Very high HDL 37 (A) 40 - 60 mg/dL 09/06/2019 3:02 PM T [facility] Comment: -------- HDL Ranges -------- <40 ?Low 40-59 ?Normal >=60 ? Optimal LDL Calculated 99 0 - 99 mg/dL 09/06/2019 3:02 PM T [facility] Comment: -------- LDL Ranges -------- <100 ? Optimal 100-129 ?Near optimal/above op timal 130-159 ?Borderline high 160-189 ?High >=190 ?Very high Fasting? Yes 09/06/2019 8:20 AM T [facility] Specimen Anatomical Collection Method Collection Time Receive d Time (Source) Location / / Volume Laterality Blood 09/06/2019 8:08 AM 0 1:16 CDT PM CDT Bacilio [facility] LAB BLOOD ORDERABLES Performing Organization Address City/State/ZIP Code Phon e Number [facility] [address] [place] [address] documented in this encounter Visit Diagnoses Diagnosis Type 2 diabetes mellitus with other spec ified complication, with long-term current use of insulin (HCC) Mixed hyperlipidemia Essential hypertension Unspecified essential hypertension Stage 3 chronic kidney disease (HCC) documented in this encounter Care Teams Electrical Assemblies Supervisor Relationship Specialty Start Date End Date Corrine Vazquez MD PCP - General Family Medicine 07/07/19 08/19/21 [address] [place] [address] documented as of this encounter
--- OUTSIDE RECORDS SUMMARY | 2022-01-21 14:03 | XMS_ITS | Encounter Summary ---
:1945 Author Organization [facility] Address [address] [place] [address] Care Team Providers Name Role Phone Corrine Vazquez MD Primary Care Provider Reason for Visit Consultation (Routine) - Closed Specialty Diagnoses / Procedures Referred By Contact Refer red To Contact Diagnoses Medicare annual wellness visit, initial Corrine Vazquez MD Care Coordination [facility] [address] [place] [address] [place] [phone] Referral ID Status Reason Start Date Expiration Date Visits V isits Requested Authorized [id number] Closed Specialty 12/23/2018 99 99 Services Required Encounter Details Date Type Department Care Team Description 11/08/2019 Patient Outreach SE Care Coordination Abbie Ramesh, [address] [place] [address] [place] [address] [place] [phone] Social History Tobacco Use Types Packs/Day Years [...] Ramesh Management (02/05/2021 Abbie Murray, 11:19 AM COLLEGE ASSOCIATE) RN Note: Formatting of this note is differe nt from the original. Routine Health Management Care Team Patient Care Team: Corrine Vazquez MD as PCP - General ([facility] Medicine) Yossi Potts, RN as Registered Nurse (Diabetes Education) Abbie Ramesh RN as Bowl Topper Future Scheduled Appointments No future appointments. Health [...] change (02/05/2021 11:17 AM Abbie Monzon, RN COLLEGE ASSOCIATE) Note: Formatting of this note is [...] on filedocumented in this encounter Care Teams Machine Sewer Relationship Specialty Start Date End Date Corrine Vazquez MD PCP - General Family Medicine 07/07/19 08/19/[address] [place] [address] documented as of this encounter
--- OUTSIDE RECORDS SUMMARY | 2022-01-21 14:03 | XMS_ITS | Encounter Summary ---
:1945 Author Organization [facility] Address [address] [place] [address] Care Team Providers Name Role Phone Corrine Vazquez MD Primary Care Provider Reason for Visit Reason Onset Date Comments RX 11/25/2019 Encounter Details Date Type Department Care Team Description 11/25/2019 Telephone [place] Corrine Vazquez MD RX [address] [place], [place] [address] [place], [place] [phone] (Wo rk) Social History Tobacco Use Types [...] Alyssa Will call us back from the [employer] store. Telephone Encounter - Margareth Sanchez RN - 11/28/2019 2:58 PM CDT No answer. Telephone Encounter - Margareth Sanchez RN - 11/28/2019 10:58 AM CDT LMTC Telephone Encounter - Margareth Sanchez RN - 11/28/2019 8:42 AM CDT They open at 9am. Phone number is [phone]. Telephone Encounter - Phoebe Donohue - 11/25/2019 2:02 PM CDT Patient is requesting RX for accu check fast clix be sent to [place] [facility]. Fax number is [phone]. documented in this encounter Plan of Treatment [...] Corrine Vazquez MD as PCP - [facility] Yossi Potts, RN as Registered Nurse (Diabetes Education) Abbie Ramesh RN as Dairy Nutritionist Future Scheduled Appointments No future appointments. Health [...] (02/05/2021 11:17 AM No Abbie Ramesh, RN COMMUNICATION SPECIALIST) Note: Formatting of this note is [...] on filedocumented in this encounter Care Teams Rn Field Case Manager Relationship Specialty Start Date End Date Corrine Vazquez MD PCP - General Family Medicine 07/07/19 08/19/[address] [facility] [place] [address] documented as of this encounter
--- OUTSIDE RECORDS SUMMARY | 2022-01-21 14:03 | XMS_ITS | Encounter Summary ---
:1945 Author Organization [facility] Address [address] [place] [address] Care Team Providers Name Role Phone Corrine Vazquez MD Primary Care Provider Reason for Visit Consultation (Routine) - Closed Specialty Diagnoses / Procedures Referred By Contact Refer red To Contact Diagnoses Medicare annual wellness visit, initial Corrine Vazquez MD Care Coordination [address] [place], [place] [phone] Referral ID Status Reason Start Date Expiration Date Visits V isits Requested Authorized [id number] Closed Specialty 12/23/2018 99 99 Services Required Encounter Details Date Type Department Care Team Description 08/26/2019 Patient Outreach SE Care Abbie Ramesh and coordination of care (Primary Dx); Aldo Murray, RN Type 2 diabetes mellitus with other spec ified complication, with long-term current use of insulin (HCC); [address] [facility] [address] Rheumatoid arthritis, involv ing unspecified site, unspecified rheumatoid factor presence (HCC); [place] [address] [facility] Rheumatoid arthritis, involving unspecif ied site, unspecified whether rheumatoid factor present ([facility]); [phone] [place], [place] Mixed hyperlip idemia [address] Social History [...] Coordination Discussion Date: 08/26/2019 3:12 PM Completed CCM monthly follow up with Marcial She continues to work towards previously set goals. Today's discussion: ??? Reviewed medication list and the need for refills ??? Diabetes: has been having a lot of lows in the early head start director. This AM at 0500, reading was 66 [...] 12/18/2019 ??? Fall Risk Performed 12/24/2019 ??? [facility] Annual Wellness 12/24/2019 [...] 10:00 AM JOSE DE JESUS [facility] Yossi Potts RN - 08/26/2019 2:20 PM [...] Ramesh, Management (02/05/2021 Abbie Murray, 11:19 AM CLINICAL OPERATIONS CONSULTANT) RN Note: Formatting of this note is differe nt from the original. Routine Health Management Care Team Patient Care Team: Corrine Vazquez MD as PCP - [facility] Yossi Potts RN as Registered Nurse (Diabetes Education) Abbie Ramesh RN as Winemaker Future Scheduled Appointments No future appointments. Health [...] (02/05/2021 11:17 AM Abbie Monzon, RN CLINICAL OPERATIONS CONSULTANT) Note: Formatting of this note is [...] hyperlipidemia documented in this encounter Care Teams Tarp Repairer Relationship Specialty Start Date End Date Corrine Vazquez MD PCP - General Family Medicine 07/07/19 08/19/[address] [place] [address] documented as of this encounter
--- OUTSIDE RECORDS SUMMARY | 2022-01-21 14:03 | XMS_ITS | Encounter Summary ---
:[address] [facility] Address [address] [place] [address] Care Team Providers Name Role Phone Corrine Vazquez MD Primary Care Provider Encounter Details Date Type Department Care Team Description 11/28/2019 Orders Only [place] Corrine Vazquez MD [address] [facility] [address] [place], [place] [address] [place], [place] [phone] (Wo rk) Social History Tobacco Use Types [...] Domitila, Management (02/05/2021 Abbie Murray, 11:19 AM SOFTWARE WRITER) RN Note: Formatting of this note is differe nt from the original. Routine Health Management Care Team Patient Care Team: Corrine Vazquez MD as PCP - General ([facility] Medicine) Yossi Potts, RN as Registered Nurse (Diabetes Education) Abbie Ramesh RN as Electric Motor Rebuilder Future Scheduled Appointments No future appointments. [...] (02/05/2021 11:17 AM No Abbie Ramesh, RN SOFTWARE WRITER) Note: Formatting of this note is differe [...] filedocumented in this encounter Care Teams Sales Rep Relationship Specialty Start Date End Date Corrine Vazquez MD PCP - General Family Medicine 07/07/19 08/19/[address] [place] [address] documented as of this encounter
--- OUTSIDE RECORDS SUMMARY | 2022-01-21 14:03 | XMS_ITS | Encounter Summary ---
:1945 Author Organization [facility] Address [address] [place] [address] Care Team Providers Name Role Phone Corrine Vazquez MD Primary Care Provider Reason for Visit Reason Onset Date Comments talk to nurse/lab results 09/08/2019 Encounter Details Date Type Department Care Team Description 09/08/2019 Telephone [place] Corrine Vazquez talk to nurse/lab [address] [place], [place] [address] [phone] [place] [address] Social History Tobacco Use Types Packs/Day Years [...] panel pretty good. Since Dr. Stewart ([facility]'s Outdoor Illuminating Engineer) is the one who ordered these tests he will most likely send her a lab letter as well as most likely adjust her medications. Marcial will be coming to our clinic for her diabetic cares after this so that she doesn't need to drive to [place]. Let Marcial know that if she doesn't hear from Dr. Stewart's office in the next 7-10 days regarding how to adjust her medications to treat her diabetes to let us know. Or also ask if she was going to go down to [facility] to consult with Dr. Stewart this one [...] Monzon (02/05/2021 Abbie Murray, 11:19 AM DIRECTOR SPEECH) RN Note: Formatting of this note is differe nt from the original. Routine Health Management Care Team Patient Care Team: Corrine Vazquez MD as PCP - General ([facility] Yossi Potts, RN as Registered Nurse (Diabetes Education) Abbie Ramesh RN as Preservationist Future Scheduled Appointments No future appointments. Health [...] (02/05/2021 11:17 AM Abbie Monzon, RN DIRECTOR SPEECH) Note: Formatting of this note is differe [...] on filedocumented in this encounter Care Teams Track Laying Equipment Operator Relationship Specialty Start Date End Date Corrine Vazquez MD PCP - General Family Medicine 07/07/19 08/19/[address] [place] [address] documented as of this encounter
--- OUTSIDE RECORDS SUMMARY | 2022-01-21 14:03 | XMS_ITS | Encounter Summary ---
:1945 Author Organization [facility] Address [address] [place] [address] Care Team Providers Name Role Phone Corrine Vazquez MD Primary Care Provider Encounter Details Date Type Department Care Team Description 09/06/2019 Orders Only [place] Corrine Vazquez MD [address] [facility] [address] [place], [place] [address] [place], [place] [phone] (Wo rk) Social History Tobacco Use Types [...] Domitila, Management (02/05/2021 Abbie Murray, 11:19 AM DUMPER BAILER OPERATOR) RN Note: Formatting of this note is differe nt from the original. Routine Health Management Care Team Patient Care Team: Corrine Vazquez MD as PCP - General ([facility] Medicine) Yossi Potts, RN as Registered Nurse (Diabetes Education) Abbie Ramesh RN as Continuous Pickling Line Pickler Helper Future Scheduled Appointments No future appointments. [...] (02/05/2021 11:17 AM No Abbie Ramesh, RN DUMPER BAILER OPERATOR) Note: Formatting of this note is [...] on filedocumented in this encounter Care Teams Grain Elevator Worker Relationship Specialty Start Date End Date Corrine Vazuqez MD PCP - General Family Medicine 07/07/19 08/19/[address] [place] [address] documented as of this encounter
--- OUTSIDE RECORDS SUMMARY | 2022-01-21 14:03 | XMS_ITS | Encounter Summary ---
:1945 Author Organization [facility] Address [address] [place] [address] Care Team Providers Name Role Phone Corrine Vazquez MD Primary Care Provider Reason for Visit Consultation (Routine) - Closed Specialty Diagnoses / Procedures Referred By Contact Refer red To Contact Diagnoses Medicare annual wellness visit, initial Corrine Vazquez MD Care Coordination [address] [place], [place] [phone] Referral ID Status Reason Start Date Expiration Date Visits V isits Requested Authorized [id number] Closed Specialty 12/23/2018 99 99 Services Required Encounter Details Date Type Department Care Team Description 11/25/2019 Patient Outreach SE Care Coordination Abbie Ramesh Counseling and coordination of care (Primary Dx); [address] [facility] Terri RN Type 2 diabetes mellitus with other spec ified complication, with long-term current use of insulin (HCC); [place] [address] [address] Weak urinary stream [phone] [place] [address] Social History Tobacco Use Types [...] 12/23/2018 organizations such as baptism groups, unions, [employer] or athletic groups, or school groups? How [...] Nurse (Diabetes Education) Abbie Ramesh RN as Bed Rubber Future Scheduled Appointments No future appointments. Health Maintenance Health Maintenance Topic Date Due ??? Diabetic Foot Exam 07/16/2019 ??? Mammogram 11/26/2019 ??? Hemoglobin A1C 12/07/2019 ??? Glaucoma Screening 67+ Yr 12/18/2019 ??? Ophthalmology Exam 12/18/2019 ??? Fall Risk Performed 12/24/2019 ??? [facility] Annual Wellness 12/24/2019 ??? Urine Protein Screening 05/31/2020 ??? Lipid Panel 09/05/2020 ??? Colorectal Cancer Screening: Colonoscopy 05/21/2021 ??? [facility] Pneumococcal Vaccine: 65+ Years Completed ? ? [...] back. She had a visit with the editor managing director this morning. They discussed possibility ofstarting a new medication to protect her heart. She was given some information but would like to discuss with PCP. She plans to make an appointment to discuss prior to starting. Unable to see records from [facility] at the moment. documented in this encounter Plan of Treatment Not on filedocumented as of this encounter Goals Goal Patient Goal Associated Recent Patient-Stated? Author Type Problems Progress Routine Health General No change Peter Monzon (02/05/2021 Abbie Murray, 11:19 AM SIEBEL CRM DEVELOPER) RN Note: Formatting of this note is differe nt from the original. Routine Health Management Care Team Patient Care Team: Corrine Vazquez MD as PCP - General ([facility]) Yossi Potts RN as Registered Nurse (Diabetes Education) Abbie Ramesh RN as Bed Rubber Future Scheduled Appointments No future appointments. Health [...] (02/05/2021 11:17 AM No Abbie Ramesh, RN SIEBEL CRM DEVELOPER) Note: Formatting of this note is differe [...] stream documented in this encounter Care Teams Kennel Technician Relationship Specialty Start Date End Date Corrine Vazquez MD PCP - General Family Medicine 07/07/19 08/19/[address] [place] [address] documented as of this encounter
--- OUTSIDE RECORDS SUMMARY | 2022-01-21 14:03 | XMS_ITS | Encounter Summary ---
:1945 Author Organization [facility] Address [address] [place] [address] Care Team Providers Name Role Phone Corrine Vazquez MD Primary Care Provider Reason for Visit Reason Onset Date Comments Refills 12/13/2019 Lancets Encounter Details Date Type Department Care Team Description 12/13/2019 Telephone [place] Corrine Vazquez, Refills (Lancets) [address] [facility] [place], [place] [address] [phone] [place] [address] (Wo rk) Social History Tobacco Use Types [...] Peter Monzon (02/05/2021 Abbie Murray, 11:19 AM WEED CONTROLLER) RN Note: Formatting of this note is differe nt from the original. Routine Health Management Care Team Patient Care Team: Corrine Vazquez MD as PCP - General ([facility]) Yossi Potts RN as Registered Nurse (Diabetes Education) Abbie Ramesh RN as Environmental Health Technician Future Scheduled Appointments No future appointments. Health Maintenance Health Maintenance Topic Date Due Urine Protein Screening 05/31/2020 Lipid Panel 09/05/2020 Glaucoma Screening 67+ Yr 12/25/2020 Ophthalmology Exam 12/25/2020 [facility] [place] Wellness 01/12/2021 Hemoglobin A1C 01/24/2021 Diabetic Foot Exam 03/16/2021 Colorectal Cancer Screening: Colonoscop y 05/21/2021 Fall Risk Performed 06/05/2021 Mammogram 12/03/2021 COVID-19 Vaccine Completed [facility] Pneumococcal Vaccine: <64 Completed [facility] Pneumococcal Vaccine: 65+ Years Com pleted HPV Vaccines Aged Out Notes: Due: Urine Protein screening Eye exam AWV A1C Lipid panel Diabetes Management General No change (02/05/2021 11:17 AM Abbie Monzon, RN WEED CONTROLLER) Note: Formatting of this note is differe nt from the original. Diabetes Management Type 2 diabetes mellitus with other spec ified complication (HCC) Managed by (PCP or Endocrinology) Dr. Vazquez (PCP ) Home Glucose tracking 1-3 times per day Diabetic medications insulin glargine (B ASAGLMARIANELA ROLDANSUSAN) 100 UNIT/ML injection 22 units in [...] filedocumented in this encounter Care Teams Contact Center Professional Relationship Specialty Start Date End Date Corrine Vazquez MD PCP - General Family Medicine 07/07/19 08/19/[address] [place] [address] documented as of this encounter
--- OUTSIDE RECORDS SUMMARY | 2022-01-21 14:03 | XMS_ITS | Encounter Summary ---
:1945 Author Organization [facility] Address [address] [place] [address] Care Team Providers Name Role Phone Corrine Vazquez MD Primary Care Provider Encounter Details Date Type Department Care Team Description 08/27/2019 Orders Only [place] Corrine Vazquez MD [address] [facility] [address] [place], [place] [address] [place], [place] [phone] (Wo rk) Social History Tobacco Use Types [...] Domitila, Management (02/05/2021 Abbie Murray, 11:19 AM BOTTLE CASER) RN Note: Formatting of this note is differe nt from the original. Routine Health Management Care Team Patient Care Team: Corrine Vazquez MD as PCP - General ([facility] Medicine) Yossi Potts, RN as Registered Nurse (Diabetes Education) Abbie Ramesh RN as Marketing Liaison Future Scheduled Appointments No future appointments. Health [...] (02/05/2021 11:17 AM No Abbie Ramesh, RN BOTTLE CASER) Note: Formatting of this note is differe [...] on filedocumented in this encounter Care Teams Partnership Development Manager Relationship Specialty Start Date End Date Corrine Vazquez MD PCP - General Family Medicine 07/07/19 08/19/[address] [place] [address] documented as of this encounter
--- OUTSIDE RECORDS SUMMARY | 2022-01-21 14:03 | XMS_ITS | Encounter Summary ---
:1945 Author Organization [facility] Address [address] [place] [address] Care Team Providers Name Role Phone Corrine Vazquez MD Primary Care Provider Encounter Details Date Type Department Care Team Description 09/02/2019 Telephone SE Endocrinology Bacilio Stewart MBBS [address] [place] [address] [place] [address] [phone] (Wo rk) Social History Tobacco Use Types [...] Peter Ramesh (02/05/2021 Abbie Murray, 11:19 AM TIME CLOCK INSPECTOR) RN Note: Formatting of this note is differe nt from the original. Routine Health Management Care Team Patient Care Team: Corrine Vazquez MD as PCP - General ([facility] Medicine) Yossi Potts RN as Registered Nurse (Diabetes Education) Abbie Ramesh RN as Recruitment Intern Future Scheduled Appointments No future appointments. Health Maintenance Health Maintenance Topic Date Due Urine Protein Screening 05/31/2020 Lipid Panel 09/05/2020 Glaucoma Screening 67+ Yr 12/25/2020 Ophthalmology Exam 12/25/2020 [facility] Annual Wellness 01/12/2021 Hemoglobin [...] (02/05/2021 11:17 AM No Abbie Ramesh, RN TIME CLOCK INSPECTOR) Note: Formatting of this note is [...] on filedocumented in this encounter Care Teams Barrel Lapper Relationship Specialty Start Date End Date Corrine Vazquez MD PCP - General Family Medicine 07/07/19 08/19/[address] [place] [address] documented as of this encounter
--- OUTSIDE RECORDS SUMMARY | 2022-01-21 14:03 | XMS_ITS | Encounter Summary ---
:[address] [facility] Address [address] [place] [address] Care Team Providers Name Role Phone Corrine Vazquez MD Primary Care Provider Reason for Visit Reason Comments Diabetes Mellitus Encounter Details Date Type Department Care Team Description 09/12/2019 [facility] SE Endocrinology Bacilio Stewart, Type 2 diabetes mellitus wit h other specified complication, with long-term current use of insulin (HCC) (Primary Dx); [address] [place] [address] MBBS Stage 3 chronic kidney disease (HCC); [place] [address] [place] [address] Mixed hyperlipidemia; [phone] [place], [place] Abnormal liver function test; [address] Essential hypertension Social History Tobacco Use Types [...] increased from 22 units on 09/07/19. Our visual educator, Denny Potts, has been in touch [...] Last eye exam showed no retinopathy in [place]. Dorsal aspectof toes hurts sometimes. Denies any [...] More than three times a week Attends church service: More than 4 times per year [...] was 33 minutes. Bacilio Stewart MD Staff Geophysical Operator documented in this encounter Plan of Treatment Not on filedocumented as of this encounter Goals Goal Patient Goal Associated Recent Patient-Stated? Author Type Problems Progress Routine Health General No change No Domitila, Management (02/05/2021 Abbie Murray, 11:19 AM LOCOMOTIVE CRANE OPERATOR HELPER) RN Note: Formatting of this note is differe nt from the original. Routine Health Management Care Team Patient Care Team: Corrine Vazquez MD as PCP - General ([facility]) Yossi Potts, RN as Registered Nurse (Diabetes Education) Abbie Ramesh RN as Transport Nurse Future Scheduled Appointments No future appointments. [...] (02/05/2021 11:17 AM No Abbie Ramesh RN LOCOMOTIVE CRANE OPERATOR HELPER) Note: Formatting of this note [...] (ABNORMAL) CBC ([facility]) (03/16/2020 10:17 AM LOCOMOTIVE CRANE OPERATOR HELPER) athologist Signature WBC 7.1 3.5 - 10.5 03/16/2020 [facility] K/uL 10:23 AM LOCOMOTIVE CRANE OPERATOR HELPER FALLS RBC 3.91 3.90 - 5.00 03/16/2020 [facility] M/uL 10:23 AM LOCOMOTIVE CRANE OPERATOR HELPER FALLS Hemoglobin 11.5 (L) 12.0 - 15.5 03/16/2020 [facility] g/dL 10:23 AM LOCOMOTIVE CRANE OPERATOR HELPER FALLS Hematocrit 35.5 35.0 - 44.0 03/16/2020 [facility] % 10:23 AM LOCOMOTIVE CRANE OPERATOR HELPER FALLS Platelets 199 150 - 450 03/16/2020 [facility] K/uL 10:23 AM LOCOMOTIVE CRANE OPERATOR HELPER FALLS MCV 90.8 81.6 - 98.3 03/16/2020 [facility] fL 10:23 AM LOCOMOTIVE CRANE OPERATOR HELPER FALLS MCH 29.4 26.0 - 32.0 03/16/2020 [facility] pg 10:23 AM LOCOMOTIVE CRANE OPERATOR HELPER FALLS MCHC 32.4 32.0 - 36.0 03/16/2020 [facility] g/dL 10:23 AM LOCOMOTIVE CRANE OPERATOR HELPER FALLS RDW 13.2 11.9 - 15.5 03/16/2020 [facility] % 10:23 AM LOCOMOTIVE CRANE OPERATOR HELPER FALLS Specimen Anatomical Collection Method Collection Time Receive d Time (Source) Location / / Volume Laterality Blood 03/16/2020 10:17 03/16/2020 AM LOCOMOTIVE CRANE OPERATOR HELPER 10:21 AM LOCOMOTIVE CRANE OPERATOR HELPER Bacilio [facility] LAB BLOOD ORDERABLES Performing Organization Address City/State/ZIP Code Phon e Number [facility] [place] [address] [place] [address] Liver panel (03/16/2020 10:17 AM LOCOMOTIVE CRANE OPERATOR HELPER) P athologist Signature Total Protein 7.7 6.3 - 8.2 03/16/2020 [place] g/dL 6:25 PM [facility] Albumin, Serum 4.2 3.5 - 5.0 03/16/2020 [facility] g/dL 6:25 PM [facility] Total Bilirubin <0.7 0.1 - 1.0 03/16/2020 [facility] mg/dL 6:25 PM [facility] Bilirubin, <0.1 0.0 - 0.3 03/16/2020 [facility] Direct mg/dL 6:25 PM LOCOMOTIVE CRANE OPERATOR [facility] AST 27 8 - 43 U/L 03/16/2020 [facility] 6:25 PM [facility] Alkaline 66 38 - 128 03/16/2020 [place] Phosphatase U/L 6:25 PM [facility] ALT (SGPT) 21 0 - 34 U/L 03/16/2020 [place] 6:25 PM [facility] Specimen Anatomical Collection Method Collection Time Receive d Time (Source) Location / / Volume Laterality Blood 03/16/2020 10:17 03/16/2020 5:59 AM LOCOMOTIVE CRANE OPERATOR HELPER PM LOCOMOTIVE CRANE OPERATOR HELPER Bacilio [facility] LAB BLOOD ORDERABLES Performing Organization Address City/State/ZIP Code Phon e Number [facility] [address] [place] [address] documented in this encounter Visit Diagnoses Diagnosis Type 2 diabetes mellitus with other spec ified complication, with long-term current use of insulin (HCC) - Primary Stage 3 chronic kidney disease (HCC) Mixed hyperlipidemia Abnormal liver function test Nonspecific abnormal results of liver fu nction study Essential hypertension Unspecified essential hypertension documented in this encounter Care Teams Chemical Engineering Teacher Relationship Specialty Start Date End Date Corrine Vazquez MD PCP - General Family Medicine 07/07/19 08/19/[address] [place] [address] documented as of this encounter
--- OUTSIDE RECORDS SUMMARY | 2022-01-21 14:03 | XMS_ITS | Encounter Summary ---
:1945 Author Organization [facility] Address [address] [place] [address] Care Team Providers Name Role Phone Corrine Vazquez MD Primary Care Provider Reason for Visit Reason Onset Date Comments Lab questions 08/31/2019 Encounter Details Date Type Department Care Team Description 08/31/2019 Telephone [place] Corrine Vazquez MD Lab questions [address] [place], [place] [address] [place], [place] [phone] (Wo rk) Social History Tobacco Use Types [...] having next week. Please call Pt at [phone] to advise. documented in this encounter Plan of Treatment Not on filedocumented as of this encounter Goals Goal Patient Goal Associated Recent Patient-Stated? Author Type Problems Progress Routine Health General No change Peter Monzon (02/05/2021 Abbie Murray, 11:19 AM BLEACHER SULFITE PULP) RN Note: Formatting of this note is differe nt from the original. Routine Health Management Care Team Patient Care Team: Corrine Vazquez MD as PCP - General (F amily Medicine) Yossi Potts, RN as Registered Nurse (Diabetes Education) Abbie Ramesh RN as Sight Effects Specialist Future Scheduled Appointments No future appointments. [...] (02/05/2021 11:17 AM No Abbie Ramesh, RN BLEACHER SULFITE PULP) Note: Formatting of this note is differe [...] on filedocumented in this encounter Care Teams Vamp Seamer Relationship Specialty Start Date End Date Corrine Vazquez MD PCP - General Family Medicine 07/07/19 08/19/[address] [place] [address] documented as of this encounter
--- OUTSIDE RECORDS SUMMARY | 2022-01-21 14:03 | XMS_ITS | Encounter Summary ---
:1945 Author Organization [facility] Address [address] [place] [address] Care Team Providers Name Role Phone Corrine Vazquez MD Primary Care Provider Reason for Visit Reason Onset Date Comments Med Refill 09/23/2019 Encounter Details Date Type Department Care Team Description 09/23/2019 Refill [place] Corrine Vazquez, [facility], [address] [facility] 20 ID unspecified type [place], [place] [id number] [place] [address] [place] [address] Social History Tobacco Use Types Packs/Day Years [...] Peter Monzon (02/05/2021 Abbie Murray, 11:19 AM MATERIAL CONTROL CLERK) RN Note: Formatting of this note is differe nt from the original. Routine Health Management Care Team Patient Care Team: Corrine Vazquez MD as PCP - [facility] Yossi Potts RN as Registered Nurse (Diabetes Education) Abbie Ramesh RN as Manager Of Product Future Scheduled Appointments No future appointments. Health Maintenance Health Maintenance Topic Date Due Urine Protein Screening 05/31/2020 Lipid Panel 09/05/2020 Glaucoma Screening 67+ Yr 12/25/2020 Ophthalmology Exam 12/25/2020 [facility] [place] Annual Wellness 01/12/2021 Hemoglobin A1C 01/24/2021 Diabetic Foot Exam 03/16/2021 Colorectal Cancer Screening: Colonoscop y 05/21/2021 Fall Risk Performed 06/05/2021 Mammogram 12/03/2021 COVID-19 Vaccine Completed [facility] [place] Pneumococcal Vaccine: <64 Completed [facility] [place] Pneumococcal Vaccine: 65+ Years Com pleted HPV Vaccines Aged Out Notes: Due: Urine Protein screening Eye exam AWV A1C Lipid panel Diabetes Management General No change (02/05/2021 11:17 AM Abbie Monzon, RN MATERIAL CONTROL CLERK) Note: Formatting of this note is [...] type documented in this encounter Care Teams Hvac Engineering Technician Relationship Specialty Start Date End Date Corrine Vazquez MD PCP - General Family Medicine 07/07/19 08/19/[address] [place] [address] documented as of this encounter
--- OUTSIDE RECORDS SUMMARY | 2022-01-21 14:03 | XMS_ITS | Encounter Summary ---
:[address] [facility] Address [address] [place] [address] Care Team Providers Name Role Phone Corrine Vazquez MD Primary Care Provider Encounter Details Date Type Department Care Team Description 11/25/2019 Orders Only [place] Care Coordination Corrine Vazquez Type 2 diabetes [address] [facility] MD [place] [address] specified complication, [place] with long-term current [place], [place] use of insu [place] ([facility] [phone] (Primary Dx) Social History Tobacco Use Types [...] Domitila, Management (02/05/2021 Abbie Murray, 11:19 AM RESEARCH MECHANIC) RN Note: Formatting of this note is differe nt from the original. Routine Health Management Care Team Patient Care Team: Corrine Vazquez MD as PCP - General (F amily Medicine) Yossi Potts, RN as Registered Nurse (Diabetes Education) Abbie Ramesh RN as Sales Vendor Future Scheduled Appointments No future appointments. Health [...] (02/05/2021 11:17 AM No Abbie Ramesh, RN RESEARCH MECHANIC) Note: Formatting of this note is [...] Primary documented in this encounter Care Teams Rotary Cutter Feeder Relationship Specialty Start Date End Date Corrine Vazquez MD PCP - General Family Medicine 07/07/19 08/19/[address] [place] [address] documented as of this encounter
--- OUTSIDE RECORDS SUMMARY | 2022-01-21 14:03 | XMS_ITS | Encounter Summary ---
:[address] [facility] Address [address] [place] [address] Care Team Providers Name Role Phone Corrine Vazquez MD Primary Care Provider Reason for Visit Consultation (Routine) - Closed Specialty Diagnoses / Procedures Referred By Contact Refer red To Contact Diagnoses Medicare annual wellness visit, initial Corrine Vazquez MD Care Coordination [address] [place], [place] [phone] Referral ID Status Reason Start Date Expiration Date Visits V isits Requested Authorized [id number] Closed Specialty 12/23/2018 99 99 Services Required Encounter Details Date Type Department Care Team Description 12/30/2019 Patient Outreach SE Care Coordination Abbie Ramesh Counseling and coordination of care (Primary Dx); [address] [facility] Terri RN Type 2 diabetes mellitus with other spec ified complication, with long-term current use of insulin (HCC); [place] [address] [address] Mixed hyperlipidemia; [phone] [facility] Obesity (BMI 30.0-34.9) [place] [address] Social History Tobacco Use Types [...] 12/23/2018 organizations such as rastafari groups, unions, [employer] or athletic groups, or school groups? How [...] AM readings running 83-122. - Discussed with traveling engineer in regards to starting dapagliflozin. She is [...] Nurse (Diabetes Education) Abbie Ramesh RN as Butcher Future Scheduled Appointments No future appointments. [...] Notes: 1 Progress evaluated against: Health Maintenance KNITTER Corrine Vazquez MD - 12/30/2019 8:40 AM CST Heena coon KNITTER documented in this encounter Plan of Treatment Not on filedocumented as of this encounter Goals Goal Patient Goal Associated Recent Patient-Stated? Author Type Problems Progress Routine Health General No change No Domitila, Management (02/05/2021 Abbie Murray, 11:19 AM SOCK KNITTER) RN Note: Formatting of this note is differe nt from the original. Routine Health Management Care Team Patient Care Team: Corrine Vazquez MD as PCP - General ([facility] Medicine) Yossi Potts RN as Registered Nurse (Diabetes Education) Abbie Ramesh RN as Butcher Future Scheduled Appointments No future appointments. [...] (02/05/2021 11:17 AM No Abbie Ramesh, RN SOCK KNITTER) Note: Formatting of this note is differe [...] 30.0-34.9) documented in this encounter Care Teams Application Technical Designer Relationship Specialty Start Date End Date Corrine Vazquez MD PCP - General Family Medicine 07/07/19 08/19/[address] [place] [address] documented as of this encounter
--- OUTSIDE RECORDS SUMMARY | 2022-01-21 14:03 | XMS_ITS | Encounter Summary ---
:1945 Author Organization [facility] Address [address] [place] [address] Care Team Providers Name Role Phone Corrine Vazquez MD Primary Care Provider Encounter Details Date Type Department Care Team Description 09/06/2019 Orders Only [place] Corrine Vazquez MD [address] [facility] [address] [place], [place] [address] [place], [place] [phone] (Wo rk) Social History Tobacco Use Types [...] Domitila, Management (02/05/2021 Abbie Murray, 11:19 AM RESIDENTIAL APPRAISER) RN Note: Formatting of this note is differe nt from the original. Routine Health Management Care Team Patient Care Team: Corrine Vazquez MD as PCP - General ([facility] Medicine) Yossi Potts, RN as Registered Nurse (Diabetes Education) Abbie Ramesh RN as Block Handler Future Scheduled Appointments No future appointments. Health [...] (02/05/2021 11:17 AM No Abbie Ramesh, RN RESIDENTIAL APPRAISER) Note: Formatting of this note is differe [...] on filedocumented in this encounter Care Teams Tin Can Laborer Relationship Specialty Start Date End Date Corrine Vazquez MD PCP - General Family Medicine 07/07/19 08/19/[address] [place] [address] documented as of this encounter
--- OUTSIDE RECORDS SUMMARY | 2022-01-21 14:03 | XMS_ITS | Encounter Summary ---
:1945 Author Organization [facility] Address [address] [place] [address] Care Team Providers Name Role Phone Corrine Vazquez MD Primary Care Provider Reason for Visit Consultation (Routine) - Closed Specialty Diagnoses / Procedures Referred By Contact Refer red To Contact Diagnoses Medicare annual wellness visit, initial Corrine Vazquez MD Care Coordination [address] [place], [place] [phone] Referral ID Status Reason Start Date Expiration Date Visits V isits Requested Authorized [id number] Closed Specialty 12/23/2018 99 99 Services Required Encounter Details Date Type Department Care Team Description 11/10/2019 Patient Outreach [place] Care Coordination Angie Bynum, Counseling and coordination of care (Primary Dx); [address] [place] [address] RN Type 2 diabetes mellitus with other spec ified complication, with long-term current use of insulin (HCC); [place], [place] [phone] [place] [address] Mixed hyperlipidemia; [phone] Stage 3 chronic kidney disease, unspecif ied whether stage 3a or 3b CKD (HCC) [place] [address] Social History Tobacco Use Types Packs/Day Years [...] No 12/23/2018 organizations such as spiritism groups, [employer], [employer] or athletic groups, or school groups? How [...] AM Completed CCM monthly follow up with Niurkaclemencia [...] has an apt for a Mammogram in [place] next month. ?? Pt plans to have [...] 12/18/2019 ??? Fall Risk Performed 12/24/2019 ??? C Annual Wellness 12/24/2019 ??? Urine Protein Screening [...] Peter Monzon (02/05/2021 Abbie Murray, 11:19 AM COMMUNICATIONS PROJECT LEAD) RN Note: Formatting of this note is differe nt from the original. Routine Health Management Care Team Patient Care Team: Corrine Vazquez MD as PCP - General ([facility] Medicine) Yossi Potts, RN as Registered Nurse (Diabetes Education) Abbie Ramesh RN as Economics Analyst Future Scheduled Appointments No future appointments. [...] change (02/05/2021 11:17 AM Abbie Monzon, RN COMMUNICATIONS PROJECT LEAD) Note: Formatting of this note is [...] (HCC) documented in this encounter Care Teams Reference Services Head Relationship Specialty Start Date End Date Corrine Vazquez MD PCP - General Family Medicine 07/07/19 08/19/[address] [place] [address] documented as of this encounter
--- OUTSIDE RECORDS SUMMARY | 2022-01-21 14:03 | XMS_ITS | Encounter Summary ---
:1945 Author Organization [facility] Address [address] [place] [address] Care Team Providers Name Role Phone Corrine Vazquez MD Primary Care Provider Reason for Visit Reason Onset Date Comments Diabetes 09/06/2019 Encounter Details Date Type Department Care Team Description 09/06/2019 Telephone [place] Corrine Vazquez MD Diabetes [address] [facility] [address] [place], [place] [address] [place], [place] [phone] (Wo rk) Social History Tobacco Use Types [...] you could call the Endo Clinic at [facility] and let them know that secondary to [...] over my diabetes instead of going to [place]. Also patient would like her lab results from today mailed to her when they return. documented in this encounter Plan of Treatment Not on filedocumented as of this encounter Goals Goal Patient Goal Associated Recent Patient-Stated? Author Type Problems Progress Routine Health General No change Peter Monzon (02/05/2021 Abbie Murray, 11:19 AM DIE REPAIRER TRIMMER DIES) RN Note: Formatting of this note is differe nt from the original. Routine Health Management Care Team Patient Care Team: Corrine Vazquez MD as PCP - General ([facility] Medicine) Yossi Potts RN as Registered Nurse (Diabetes Education) Abbie Ramesh RN as Circuit Designer Future Scheduled Appointments No future appointments. [...] (02/05/2021 11:17 AM No Abbie Ramesh, RN DIE REPAIRER TRIMMER DIES) Note: Formatting of this note is differe [...] on filedocumented in this encounter Care Teams Spike Machine Operator Relationship Specialty Start Date End Date Corrine Vazquez MD PCP - General Family Medicine 07/07/19 08/19/[address] [place] [address] documented as of this encounter
--- OUTSIDE RECORDS SUMMARY | 2022-01-21 14:04 | XMS_ITS | Encounter Summary ---
:1945 Author Organization [facility] Address [address] [place] [address] Care Team Providers Name Role Phone Adriane Patel SOLAR ENERGY SYSTEMS ENGINEER, TELEPHONE INTERVIEWER Primary Care Provider [phone] Encounter Details Date Type Department Care Team Description 06/22/2019 Refill [place] Adriane Patel, Hypothyroidism, [address] SOLAR ENERGY SYSTEMS ENGINEER, TELEPHONE INTERVIEWER unspecified type [place], [place] [address] [facility] [address] [phone] [place], [place] [address] Social History Tobacco Use [...] 06/22/2019 9:25 AM CDT Please refill to [facility]. documented in this encounter Plan of Treatment Not on filedocumented as of this encounter Goals Goal Patient Goal Associated Recent Patient-Stated? Author Type Problems Progress Routine Health General No change No Peter Ramesh (02/05/2021 Abbie Murray, 11:19 AM COMPENSATION EXPERT) RN Note: Formatting of this note is differe nt from the original. Routine Health Management Care Team Patient Care Team: Corrine Vazquez MD as PCP - [facility] Yossi Potts, RN as Registered Nurse (Diabetes Education) Abbie Ramesh RN as Renewals Specialist Future Scheduled Appointments No future appointments. [...] type documented in this encounter Care Teams Tube Station Attendant Relationship Specialty Start Date End Date Adriane Patel, SOLAR ENERGY SYSTEMS ENGINEER, TELEPHONE INTERVIEWER PCP - General 09/22/17 07/06/19 [address] [place] [address] documented as of this encounter
--- OUTSIDE RECORDS SUMMARY | 2022-01-21 14:04 | XMS_ITS | Encounter Summary ---
:1945 Author Organization [facility] Address [address] [place] [address] Care Team Providers Name Role Phone Corrine Vazquez MD Primary Care Provider Encounter Details Date Type Department Care Team Description 08/23/2019 Telephone Diabetic Education 2nd Yossi Potts RN Floor [address] [place] [address] [place] [address] [phone] Social History Tobacco Use Types Packs/Day Years [...] Domitila, Management (02/05/2021 Abbie Murray, 11:19 AM RETIREMENT ADMINISTRATOR) RN Note: Formatting of this note is differe nt from the original. Routine Health Management Care Team Patient Care Team: Corrine Vazquez MD as PCP - [facility] ([facility]) Yossi Potts RN as Registered Nurse (Diabetes Education) Abbie Ramesh RN as Command Center Analyst Future Scheduled Appointments No future appointments. [...] (02/05/2021 11:17 AM No Abbie Ramesh, RN RETIREMENT ADMINISTRATOR) Note: Formatting of this note is [...] on filedocumented in this encounter Care Teams Pulmonary Specialist Relationship Specialty Start Date End Date oCrrine Vazquez MD PCP - General Family Medicine 07/07/19 08/19/[address] [place] [address] documented as of this encounter
--- OUTSIDE RECORDS SUMMARY | 2022-01-21 14:04 | XMS_ITS | Encounter Summary ---
:1945 Author Organization [facility] Address [address] [place] [address] Care Team Providers Name Role Phone Corrine Vazquez MD Primary Care Provider Reason for Visit Reason Comments urine symptoms pressure, vaginal drainage: yellow/lt brown, no burning with urination, pain on and off, slow stream Encounter Details Date Type Department Care Team Description 08/16/2019 Office Visit [place] Radha Sharma UTI symptoms (Primary Dx); [address] [place] Vaginal discharge; [place], [place] [phone] Social History Tobacco Use Types Packs/Day Years [...] PO) Take by mouth Contains Zinc per Resaw Machine Operator. ??? nitroglycerin (NITROSTAT) 0.4 MG [...] Peter Ramesh (02/05/2021 Abbie Murray, 11:19 AM INDEXER) RN Note: Formatting of this note is differe nt from the original. Routine Health Management Care Team Patient Care Team: Corrine Vazquez MD as PCP - General ([facility] amily Medicine) Yossi Potts RN as Registered Nurse (Diabetes Education) Abbie Ramesh RN as Chiseler Head Future Scheduled Appointments No future appointments. Health [...] and WN only) (08/16/2019 10:11 AM CDT) [facility] Method Time Signature Rapid NEGATIVE Negative 08/16/2019 [facility] Trichomonas 10:26 AM FALLS Test CDT Yeast, Wet Prep NEGATIVE Negative 08/16/2019 [place] 4:04 PM [facility] Clue Cells, Wet NONE SEEN None Seen 08/16/2019 [place] Prep /hpf 4:04 PM [facility] WBC, Wet Prep MODERATE (A) None Seen 08/16/2019 [place] /hpf 4:[address] [facility] Specimen Anatomical Collection Method Collection Time Receive d Time (Source) Location / / Volume Laterality Swab 08/16/2019 10:11 08/16/2019 AM CDT 10:16 AM CDT Radha Sharma MD LAB BODY FLUIDS AND STOOLS O RDERABLES Performing Organization Address City/State/ZIP Code Phon e Number [facility] [address] [place] [address] LABORATORY [facility] [address] [place] [address] Add-On Test Request (08/16/2019 9:42 AM CDT) [facility] Method Time Signature Add-on Testing SEE BELOW 08/16/2019 [place] 1:[address] [facility] Comment: Urine culture added to [id number] Specimen Anatomical Collection Method Collection Time Receive d Time (Source) Location / / Volume Laterality 08/16/2019 9:42 AM 0 9:42 CDT AM CDT Radha Sharma MD LAB BLOOD ORDERABLES Performing Organization Address City/State/ZIP Code Phon e Number [facility] [address] [place] [address] documented in this encounter Visit Diagnoses Diagnosis UTI symptoms - Primary Vaginal discharge Leukorrhea, not specified as infective Immunization due documented in this encounter Care Teams Flatwork Folder Relationship Specialty Start Date End Date Corrine Vazquez MD PCP - General Family Medicine 07/07/19 08/19/21 [address] [place] [address] documented as of this encounter
--- OUTSIDE RECORDS SUMMARY | 2022-01-21 14:04 | XMS_ITS | Encounter Summary ---
:1945 Author Organization [facility] Address [address] [place] [address] Care Team Providers Name Role Phone Adriane Patel Ronak CHECK EXAMINER, LATIN PROFESSOR Primary Care Provider [phone] Reason for Visit Reason Onset Date Comments Med Refill 07/25/2019 Encounter Details Date Type Department Care Team Description 07/25/2019 Refill [place] Corrine Vazquez, Anemia, unspecified type [address] [facility] [place], [place] [address] [place] [address] [place] [address] Social History Tobacco Use Types Packs/Day Years [...] Peter Ramesh (02/05/2021 Abbie Murray, 11:19 AM TIRE BUILDER) RN Note: Formatting of this note is differe nt from the original. Routine Health Management Care Team Patient Care Team: Corrine Vazquez MD as PCP - [facility] Yossi Potts, RN as Registered Nurse (Diabetes Education) Abbie Ramesh RN as School Bus Technician Future Scheduled Appointments No future appointments. [...] type documented in this encounter Care Teams Community Service Representative Relationship Specialty Start Date End Date Adriane Patel, CHECK EXAMINER, LATIN PROFESSOR PCP - General Family Medicine 08/20/[address] [place] [address] documented as of this encounter
--- OUTSIDE RECORDS SUMMARY | 2022-01-21 14:04 | XMS_ITS | Encounter Summary ---
:1945 Author Organization [facility] Address [address] [place] [address] Care Team Providers Name Role Phone Corrine Vazquez MD Primary Care Provider Encounter Details Date Type Department Care Team Description 08/16/2019 Lab [place] UTI symptoms; [address] Vaginal discharge [place], [place] [address] Social History Tobacco Use [...] Peter Ramesh (02/05/2021 Abbie Murray, 11:19 AM SUSHI CHEF) RN Note: Formatting of this note is differe nt from the original. Routine Health Management Care Team Patient Care Team: Corrine Vazquez MD as PCP - [facility] Yossi Potts, RN as Registered Nurse (Diabetes Education) Abbie Ramesh, ERA as Smoking Tobacco Packer Hand Future Scheduled Appointments No future appointments. [...] and WN only) (08/16/2019 10:11 AM CDT) [facility] Method Time Signature Rapid NEGATIVE Negative 08/16/2019 [facility] Trichomonas 10:26 AM [place] Test CDT Yeast, Wet Prep NEGATIVE Negative 08/16/2019 [facility] 4[facility]04 PM [facility] Clue Cells, Wet NONE SEEN None Seen 08/16/2019 [facility] Prep /hpf 4:04 PM [facility] WBC, Wet Prep MODERATE (A) None Seen 08/16/2019 [facility] /hpf 4:04 PM CDT [facility] Specimen Anatomical Collection Method Collection Time Receive d Time (Source) Location / / Volume Laterality Swab 08/16/2019 10:11 08/16/2019 AM CDT 10:16 AM CDT Radha Sharma MD LAB BODY FLUIDS AND STOOLS O RADHA Performing Organization Address City/[facility]/ZIP Code Phon e Number [facility] [address] [place] [address] LABORATORY [facility] [address] [place] [address] (ABNORMAL) Urine culture (08/16/2019 9:08 AM CDT) [facility] Method Time Signature Urine Culture Escherichia coli 08/18/2019 LYNN >100,000 cfu/ml 9:36 AM CDT [facility] [place] [facility] Specimen (Source) Anatomical Collection Method Collection [...] - GENERAL O RDERABLES Performing Organization Address City/[facility]/ZIP Code Phon e Number [facility] [address] [place] [address] (ABNORMAL) Urinalysis-Microscopic Exam (08/16/2019 9:08 AM CDT) [facility] [place] Method Time Signature Casts, urine NONE SEEN [...] C [facility] [address] [place] [address] (ABNORMAL) Urinalysis with reflex microscopic (08/16/2019 9:08 AM CDT) [facility] Method Time Signature Type COLLECTION HAT [...] [place] Specific 1.025 1.000 08/16/2019 [facility] [place], ->=1.030 9:25 AM CDT [place] Urine Blood, Urine MODERATE (A) NEGATIVE 08/16/2019 [facility] 9:25 AM CDT [place] pH, Urine 5.0 5.0 - 7.0 08/16/2019 [facility] 9:25 AM CDT [place] Protein, 30 (A) NEGATIVE-TRA 08/16/2019 [facility] Urine CE mg/dL 9:25 AM CDT [place] Urobilinogen, 0.2 0.2 - 1.0 08/16/2019 [facility] Urine E.U./dL 9:25 AM CDT [place] Nitrite, NEGATIVE NEGATIVE 08/16/2019 [facility] Urine 9:25 AM CDT [place] Leukocytes, SMALL (A) NEGATIVE 08/16/2019 [facility] Urine 9:25 AM CDT [place] Specimen Anatomical Collection Method Collection Time Receive d Time (Source) Location / / Volume Laterality Urine (Urine, 08/16/2019 9:08 AM 08/16/19 20 9:10 Clean Catch) CDT AM CDT Radha Sharma MD LAB URINE ORDERABLES Performing Organization Address City/State/ZIP Code Phon e Number [facility] [address] [place] [address] documented in this encounter Visit Diagnoses Diagnosis UTI symptoms Vaginal discharge Leukorrhea, not specified as infective documented in this encounter Care Teams Director Airport Operations Relationship Specialty Start Date End Date Corrine Vazquez MD PCP - General Family Medicine 07/07/19 08/19/[address] [place] [address] documented as of this encounter
--- OUTSIDE RECORDS SUMMARY | 2022-01-21 14:04 | XMS_ITS | Encounter Summary ---
:1945 Author Organization [facility] Address [address] [place] [address] Care Team Providers Name Role Phone Dandy Patelmartinez Simons BUSHER HELPER, WHEAT AND OATS FLAKE MILLER Primary Care Provider [phone] Encounter Details Date Type Department Care Team [...] Roschen, Management (02/05/2021 Abbie Murray, 11:19 AM ELECTRICIAN HELPER) RN Note: Formatting of this note is differe nt from the original. Routine Health Management Care Team Patient Care Team: Corrine Vazquez MD as PCP - [facility] Yossi Potts, RN as Registered Nurse (Diabetes Education) Abbie Ramesh, RN as Inspector General Future Scheduled Appointments No future appointments. Health [...] on filedocumented in this encounter Care Teams Ferris Wheel Operator Relationship Specialty Start Date End Date Adriane Patel, BUSHER HELPER, WHEAT AND OATS FLAKE MILLER PCP - General 09/22/17 07/06/19 [address] [facility] [place] [address] documented as of this encounter
--- OUTSIDE RECORDS SUMMARY | 2022-01-21 14:04 | XMS_ITS | Encounter Summary ---
:[address] [facility] Address [address] [place] [address] Care Team Providers Name Role Phone Adriane Patel Ronak RUDDN, PUBLICATION EDITOR Primary Care Provider [phone] Encounter Details Date Type Department Care Team Description 04/13/2019 Patient Outreach SE Care Coordination Abbie Ramesh, [address] [place] [address] [place] [address] [place] [address] Social History Tobacco Use Types [...] to discuss: 1. Diabetes-blood sugars 2. Medications ISH LECTURER Abbie Ramesh RN - 04/13/2019 11:15 AM CST Care Plan - Care Coordination Contact Date: 04/15/2019 10:30 AM Called for monthly follow up and progress; Left message to call back.. This is second attempt to call this month. When patient returns phone call, would like to discuss: 1. Diabetes-blood sugars 2. Medications ISH LECTURER documented in this encounter Plan of Treatment Not on filedocumented as of this encounter Goals Goal Patient Goal Associated Recent Patient-Stated? Author Type Problems Progress Routine Health General No change No Peter Ramesh (02/05/2021 Abbie Murray 11:19 AM ENGLISH LECTURER) RN Note: Formatting of this note is differe nt from the original. Routine Health Management Care Team Patient Care Team: Corrine Vazquez MD as [facility]CP - [facility] Yossi Potts, ERA as Registered Nurse (Diabetes Education) Abbie Ramesh RN as Certified Residential Medication Aide Future Scheduled Appointments No future appointments. [...] on filedocumented in this encounter Care Teams Prestidigitator Relationship Specialty Start Date End Date Patel, Adriane M, VEST BUSHELER, PUBLICATION EDITOR PCP - General 09/22/17 07/06/19 100 [facility] [place] [address] documented as of this encounter
--- OUTSIDE RECORDS SUMMARY | 2022-01-21 14:04 | XMS_ITS | Encounter Summary ---
:[address] [facility] Address [address] [place] [address] Care Team Providers Name Role Phone Jorge Adriane Simons SAFE DEPOSIT BOX RENTAL CLERK, AIRCRAFT TECHNICIAN Primary Care Provider [phone] Encounter Details Date Type Department Care Team Description 06/01/2019 Lab [place] Type 2 diabetes mellitus wit h other specified complication, with long-term current use of insulin ([facility]); [address] Essential hypertension; [place], [place] [address] Stage 3 chronic kidney disea ([facility]) [phone] Social History Tobacco Use Types Packs/Day Years [...] Domitila Management (02/05/2021 Abbie Murray, 11:19 AM ASSISTANT PROFESSOR OF EDUCATION) RN Note: Formatting of this note is differe nt from the original. Routine Health Management Care Team Patient Care Team: Corrine Vazquez MD as PCP - General ([facility] Medicine) Yossi Potts, RN as Registered Nurse (Diabetes Education) Abbie Ramesh RN as Auto Inspector Future Scheduled Appointments No future appointments. [...] Signature Microalbumin,m 15.3 0.0 - 16.6 06/01/2019 [facility] g/day mg/L 12:50 PM CDT [facility] Comment: . Creatinine, Urine 148 mg/dL 06/01/2019 12:50 PM CD T [facility] Comment: No established reference range. Microalb/Creat Ratio 10 0 - 24 mg/g 06/01/2019 12: 50 PM CDT [facility] Specimen Anatomical Collection Method Collection Time Receive d Time (Source) Location / / Volume Laterality Urine 06/01/2019 8:50 AM 0 CDT 12:11 PM CDT Bacilio SETHI LAB URINE ORDERABLES Performing Organization Address City/[facility] Phon e Number [facility] [address] [place] [address] (ABNORMAL) Glomerular filtration rate (GFR) (06/01/2019 8:48 AM CDT) athologist Signature GFR 40 (A) 06/01/2019 [facility] 10:10 AM CDT [facility] 49 (A) 06/01/2019 [facility] Panamanian GFR 10:10 AM CDT [facility] Comment: [...] CRUZ LAB BLOOD ORDERABLES Performing Organization Address City/[facility] Phon e Number [facility] [address] [place] [address] (ABNORMAL) Hemoglobin A1c (06/01/2019 8:48 AM CDT) Analysis Performed At Patho logist Time Signature Hemoglobin A1C 8.5 (H) 4.0 - 5.6 06/01/2019 [facility] % A1C 12:37 PM CDT [facility] [...] 0 CDT 12:11 PM CDT Bacilio Stewart [facility] LAB BLOOD ORDERABLES Performing Organization Address City/State/ZIP Code Phon e Number [facility] [address] [place] [address] (ABNORMAL) Basic metabolic panel (06/01/2019 8:48 AM CDT) P athologist Signature Sodium 140 135 - 145 06/01/2019 [facility] mmol/L 10:10 AM CDT [place] Potassium 4.0 3.5 - 5.1 06/01/2019 [facility] mmol/L 10:10 AM CDT [facility] Comment: . Chloride 104 98 - 107 mmol/L 06/01/2019 10:10 AM CDT [facility] [place] Comment: . CO2 29 22 - 29 mmol/L 06/01/2019 10:10 AM CDT O [facility] [place] Comment: . Creatinine 1.3 (H) 0.4 - 1.2 mg/dL 06/01/2019 10:10 AM CDT [facility] [place] Comment: . BUN 32 (H) 5 - 25 mg/dL 06/01/2019 10:10 AM CDT [facility] [place] Comment: . Glucose 209 (H) 70 - 100 mg/dL 06/01/2019 10:10 AM [facility] C [place] CDT Calcium, Total,S 9.7 8.4 - 10.2 mg/dL 06/01/2019 10:10 AM [facility] JAMES PIERRE CDT Comment: . Fasting? No 06/01/2019 8:48 AM CDT [facility] LANIE PIERRE Specimen Anatomical Collection Method Collection Time Receive d Time (Source) Location / / Volume Laterality Blood 06/01/2019 8:48 AM 0 8:48 CDT AM CDT Bacilio Stewart [facility] LAB BLOOD ORDERABLES Performing Organization Address City/State/ZIP Code Phon e Number [facility] JAMES [facility]ERRE [address] [place] [address] documented in this encounter Visit Diagnoses Diagnosis Type 2 diabetes mellitus with other spec ified complication, with long-term current use of insulin (HCC) Essential hypertension Unspecified essential hypertension Stage 3 chronic kidney disease (HCC) documented in this encounter Care Teams Manager Agriculture Relationship Specialty Start Date End Date Adriane Patel APRN, AIRCRAFT TECHNICIAN PCP - General 09/22/17 07/06/[address] [place] [address] [place] [address] documented as of this encounter
--- OUTSIDE RECORDS SUMMARY | 2022-01-21 14:04 | XMS_ITS | Encounter Summary ---
:1945 Author Organization [facility] Address [address] [place] [address] Care Team Providers Name Role Phone Corrine Vazquez MD Primary Care Provider Reason for Visit Consultation (Routine) - Closed Specialty Diagnoses / Procedures Referred By Contact Refer red To Contact Diagnoses Medicare annual wellness visit, initial Corrine Vazquez MD Care Coordination [address] [place], [place] [phone] Referral ID Status Reason Start Date Expiration Date Visits V isits Requested Authorized [id number] Closed Specialty 12/23/2018 99 99 Services Required Encounter Details Date Type Department Care Team Description 07/06/2019 Patient Outreach SE Care Coordination Abbie Ramesh Counseling and coordination of care (Primary Dx); [address] [facility] Terri RN Type 2 diabetes mellitus with other spec ified complication, with long-term current use of insulin ([facility]); [place] [address] [address] Rheumatoid arthritis, involv ing unspecified site, unspecified rheumatoid factor presence ([facility]); [phone] [facility] Rheumatoid arthritis, involving unspecif ied site, unspecified whether rheumatoid factor present ([facility]) [place] [address] Social History Tobacco Use Types [...] Items for Provider to address: ??? Goals 5/20/20 4/17/20 4/15/20 1/14/20 9/13/19 General ??? Health Maintenance (pt-stated) On track [...] 09/12/2019 10:00 AM JOSE DE JESUS [place] [facility] Result Component ? ? Hemoglobin A1c < 7.0 8.5 8.8 8.0 Patient will work towards decreasing A1c to 7 within 3 months (Sep 2019) (8.2 05/31/19) a.) Patient will check A1C every three months (Should be less than 7.0) b.) Patient will check blood glucose 2 times daily and report to before and after school daycare worker weekly c.) Patient will take medication [...] Peter Monzon (02/05/2021 Abbie Murray, 11:19 AM WIND PLANT MANAGER) RN Note: Formatting of this note is differe nt from the original. Routine Health Management Care Team Patient Care Team: Corrine Vazquez MD as PCP - General ([facility] Medicine) Yossi Potts, RN as Registered Nurse (Diabetes Education) Abbie Ramesh, RN as Supervisor Powder And Primer Canning Future Scheduled Appointments No future appointments. Health [...] (02/05/2021 11:17 AM No Abbie Ramesh, RN WIND PLANT MANAGER) Note: Formatting of this note is [...] (HCC) documented in this encounter Care Teams Staple Cutter Relationship Specialty Start Date End Date Corrine Vazquez MD PCP - General Family Medicine 07/07/19 08/19/[address] [address] documented as of this encounter
--- OUTSIDE RECORDS SUMMARY | 2022-01-21 14:04 | XMS_ITS | Encounter Summary ---
:1945 Author Organization [facility] Address [address] [place] [address] Care Team Providers Name Role Phone Corrine Vazquez MD Primary Care Provider Reason for Visit Consultation (Routine) - Closed Specialty Diagnoses / Procedures Referred By Contact Refer red To Contact Diagnoses Medicare annual wellness visit, initial Corrine Vazquez MD Care Coordination [address] [place], [place] [phone] Referral ID Status Reason Start Date Expiration Date Visits V isits Requested Authorized [id number] Closed Specialty 12/23/2018 99 99 Services Required Encounter Details Date Type Department Care Team Description 06/03/2019 Patient Outreach SE Care Coordination Abbie Ramesh Counseling and coordination of care (Primary Dx); [address] [facility] Terri RN Type 2 diabetes mellitus with other spec ified complication, with long-term current use of insulin (HCC); [place] [address] [address] [facility] (BMI 30.0-34.9) [phone] [place] [address] Social History Tobacco Use [...] 12/23/2018 organizations such as sabianist groups, unions, fraVirtru or athletic groups, or school groups? How [...] address: ??? None Goals Today 06/01/19 03/01/19 10/29/1819 General ??? Health Maintenance (pt-stated) On track [...] 06/13/2019 11:00 AM JOSE DE JESUS [place] [facility] Result Component ? ? Hemoglobin A1c < 7.0 8.5 8.8 8.0 8.7 Patient will work towards decreasing A1c to 7 within 6 months (June 2019) (8.2 05/31/19) a.) Patient will check A1C every three months (Should be less than 7.0) b.) Patient will check blood glucose 2 times daily and report to hospice home care coordinator weekly c.) Patient will take medication as [...] Peter Monzon (02/05/2021 Abbie Murray, 11:19 AM CFO) RN Note: Formatting of this note is differe nt from the original. Routine Health Management Care Team Patient Care Team: Corrine Vazquez MD as PCP - General ([facility] Medicine) Yossi N Delroy, RN as Registered Nurse (Diabetes Education) Abbie Ramesh RN as Electric Sealing Machine Operator Future Scheduled Appointments No future appointments. Health Maintenance Health Maintenance Topic Date Due Urine Protein Screening 05/31/2020 Lipid Panel 09/05/2020 Glaucoma Screening 67+ Yr 12/25/2020 Ophthalmology Exam 12/25/2020 [facility] Annual Wellness 01/12/2021 Hemoglobin A1C 01/24/2021 Diabetic Foot Exam 03/16/2021 Colorectal Cancer Screening: Colonoscop y 05/21/2021 Fall Risk Performed 06/05/2021 Mammogram 12/03/2021 COVID-19 Vaccine Completed [facility] Pneumococcal Vaccine: <64 Completed [facility] Pneumococcal Vaccine: 65+ Years Com pleted HPV Vaccines Aged Out Notes: Due: Urine Protein screening Eye exam AWV A1C Lipid panel Diabetes Management General No change (02/05/2021 11:17 AM No Abbie Ramesh, RN CFO) Note: Formatting of this note is differe [...] 30.0-34.9) documented in this encounter Care Teams Flat Clothier Relationship Specialty Start Date End Date Corrine Vazquez MD PCP - General Family Medicine 07/07/19 08/19/[address] [place] [address] documented as of this encounter
--- OUTSIDE RECORDS SUMMARY | 2022-01-21 14:04 | XMS_ITS | Encounter Summary ---
:1945 Author Organization [facility] Address [address] [place] [address] Care Team Providers Name Role Phone Corrine Vazquez MD Primary Care Provider Reason for Visit Consultation (Routine) - Closed Specialty Diagnoses / Procedures Referred By Contact Refer red To Contact Diagnoses Medicare annual wellness visit, initial Corrine Vazquez MD Care Coordination [address] [place], [place] [phone] Referral ID Status Reason Start Date Expiration Date Visits V isits Requested Authorized [id number] Closed Specialty 12/23/2018 99 99 Services Required Encounter Details Date Type Department Care Team Description 07/19/2019 Patient Outreach SE Care Coordination Abbie Ramesh Counseling and coordination of care (Primary Dx); [address] [facility] Terri RN Type 2 diabetes mellitus with other spec ified complication, with long-term current use of insulin ([facility]); [place] [address] [address] Rheumatoid arthritis, involv ing unspecified site, unspecified rheumatoid factor presence ([facility]); [phone] [facility] Rheumatoid arthritis, involving unspecif ied site, unspecified whether rheumatoid factor present ([facility]) [place] [address] Social History Tobacco Use Types [...] and inquire about safety precautions taken at [facility]. CC called and updated patient on [...] 12/18/2019 ??? Fall Risk Performed 12/24/2019 ??? [facility] Annual Wellness 12/24/2019 ??? Lipid Panel 03/17/2020 ??? Urine Protein Screening 05/31/2020 ??? Colorectal Cancer Screening: Colonoscopy 05/21/2021 ??? HPV Vaccines Aged Out Lifestyle ??? Keep your medical appointments On track On track On track Future Appointments Date Time Provider Department Center 09/06/2019 8:00 AM [facility] [place] [facility] 1 [facility] [place] 09/12/2019 10:00 AM JOSE DE JESUS [place] [facility] Result Component ? ? Hemoglobin A1c < 7.0 8.5 8.8 Patient will work towards decreasing A1c to 7 within 3 months (Sep 2019) (8.2 05/31/19) a.) Patient will check A1C every three months (Should be less than 7.0) b.) Patient will check blood glucose 2 times daily and report to health care analyst weekly c.) Patient will take medication as [...] Peter Ramesh (02/05/2021 Abbie Murray, 11:19 AM MICROBIOLOGY MANAGER) RN Note: Formatting of this note is differe nt from the original. Routine Health Management Care Team Patient Care Team: Corrine Vazquez MD as PCP - General ([facility]) Yossi Potts, RN as Registered Nurse (Diabetes Education) Abbie Ramesh, RN as Window Draper Future Scheduled Appointments No future appointments. Health Maintenance Health Maintenance Topic Date Due Urine Protein Screening 05/31/2020 Lipid Panel 09/05/2020 Glaucoma Screening 67+ Yr 12/25/2020 Ophthalmology Exam 12/25/2020 [facility] Annual Wellness 01/12/2021 Hemoglobin A1C 01/24/2021 Diabetic Foot Exam 03/16/2021 Colorectal Cancer Screening: Colonoscop y 05/21/2021 Fall Risk Performed 06/05/2021 Mammogram 12/03/2021 COVID-19 Vaccine Completed [facility] Pneumococcal Vaccine: <64 Completed [facility] Pneumococcal Vaccine: 65+ Years Com pleted HPV Vaccines Aged Out Notes: Due: Urine Protein screening Eye exam AWV A1C Lipid panel Diabetes Management General No change (02/05/2021 11:17 AM No Abbie Ramesh, RN MICROBIOLOGY MANAGER) Note: Formatting of this note is [...] (HCC) documented in this encounter Care Teams Financial Advisor Relationship Specialty Start Date End Date Corrine Vazquez MD PCP - General Family Medicine 07/07/19 08/19/[address] [place] [address] documented as of this encounter
--- OUTSIDE RECORDS SUMMARY | 2022-01-21 14:04 | XMS_ITS | Encounter Summary ---
:1945 Author Organization [facility] Address [address] [place] [address] Care Team Providers Name Role Phone Adriane Patel HOME APPLIANCE INSTALLER, VAULT CUSTODIAN Primary Care Provider [phone] Reason for Visit Reason Comments Med Refill Encounter Details Date Type Department Care Team Description 04/16/2019 Refill [place] Adriane Patel, Anxiety (Primary Dx) [address] HOME APPLIANCE INSTALLER, VAULT CUSTODIAN [place], [place] [address] [address] [facility] [address] [facility] [address] [phone] [place], [place] [address] Social History Tobacco Use [...] Rx faxed to [facility] as requested. T PACKER Telephone Encounter - Lana Knight LPN - 04/18/2019 1:25 PM CST Please fax to [facility] T PACKER Telephone Encounter - Adriane Patel APRN, VAULT CUSTODIAN - 04/18/2019 1:04 PM PLANT PACKER Completed. Suresh Cm T PACKER Telephone Encounter - Huma Reich MA - [...] Last 2 Encounters: 03/07/19 128/70 12/23/18 152/82 T PACKER documented in this encounter Plan of Treatment Not on filedocumented as of this encounter Goals Goal Patient Goal Associated Recent Patient-Stated? Author Type Problems Progress Routine Health General No change No Domitila Management (02/05/2021 Abbie Murray, 11:19 AM PLANT PACKER) RN Note: Formatting of this note is differe nt from the original. Routine Health Management Care Team Patient Care Team: Corrine Vazquez MD as PCP - General ([facility] Medicine) Yossi Potts, RN as Registered Nurse (Diabetes Education) Abbie Ramesh, RN as Supervisor Electronics Testing Future Scheduled Appointments No future appointments. Health Maintenance Health Maintenance Topic Date Due Urine Protein Screening 05/31/2020 Lipid Panel 09/05/2020 Glaucoma Screening 67+ Yr 12/25/2020 Ophthalmology Exam 12/25/2020 [facility] 01/12/2021 Hemoglobin A1C 01/24/2021 Diabetic Foot Exam 03/16/2021 Colorectal Cancer Screening: Colonoscop y 05/21/2021 Fall Risk Performed 06/05/2021 Mammogram 12/03/2021 COVID-19 Vaccine [place] [facility] [place] Pneumococcal Vaccine: <64 Completed [facility] [place] Pneumococcal Vaccine: 65+ Years Com pleted HPV Vaccines Aged Out Notes: Due: Urine Protein screening Eye exam AWV A1C Lipid panel documented as of this encounter Visit Diagnoses Diagnosis Anxiety - Primary Anxiety state, unspecified documented in this encounter Care Teams Tray Drier Relationship Specialty Start Date End Date Adriane Patel, HOME APPLIANCE INSTALLER, VAULT CUSTODIAN PCP - General 09/22/17 07/06/19 [address] [facility] [place] [address] documented as of this encounter
--- OUTSIDE RECORDS SUMMARY | 2022-01-21 14:04 | XMS_ITS | Encounter Summary ---
:[address] [facility] Address [address] [place] [address] Care Team Providers Name Role Phone Adriane Patel OTR [employer] TRUCK DRIVER, ARCHEOLOGY FACULTY MEMBER Primary Care Provider [phone] Reason for Visit Reason Onset Date Comments mail lab results 06/21/2019 Encounter Details Date Type Department Care Team Description 06/21/2019 Telephone [place] Adriane Patel, mail lab results [address] O[employer] TRUCK DRIVER, ARCHEOLOGY FACULTY MEMBER [place], [place] [address] [address] [facility] [address] [phone] [place], [place] [address] Social History Tobacco Use [...] Peter Ramesh (02/05/2021 Abbie Murray, 11:19 AM SLEEP TECH) RN Note: Formatting of this note is differe nt from the original. Routine Health Management Care Team Patient Care Team: Corrine Vazquez MD as PCP - General ([facility] Medicine) Yossi Potts RN as Registered Nurse (Diabetes Education) Abbie Ramesh RN as Candle Extrusion Machine Operator Future Scheduled Appointments No future [...] filedocumented in this encounter Care Teams Retail Event Coordinator Relationship Specialty Start Date End Date Adriane Patel, OTR [employer] TRUCK DRIVER, ARCHEOLOGY FACULTY MEMBER PCP - General 09/22/17 07/06/19 [facility] [address] documented as of this encounter
--- OUTSIDE RECORDS SUMMARY | 2022-01-21 14:04 | XMS_ITS | Encounter Summary ---
:1945 Author Organization [facility] Address [address] [place] [address] Care Team Providers Name Role Phone Corrine Vazquez MD Primary Care Provider Encounter Details Date Type Department Care Team Description 08/16/2019 Orders Only [place] Radha Sharma UTI symptoms (Primary [address] Dx) [place], [place] [address] Social History Tobacco Use [...] Ramesh Management (02/05/2021 Abbie Murray, 11:19 AM TERRITORY SALES MANAGER) RN Note: Formatting of this note is differe nt from the original. Routine Health Management Care Team Patient Care Team: Corrine Vazquez MD as PCP - [facility] Yossi Potts, RN as Registered Nurse (Diabetes Education) Abbie Ramesh, ERA as Picking Table Worker Future Scheduled Appointments No future appointments. [...] with reflex microscopic (08/16/2019 9:08 AM CDT) [facility] Method Time Signature Type COLLECTION HAT 08/16/2019 [...] [place] Specific 1.025 1.000 08/16/2019 [facility] [place], ->=1.030 9:25 AM CDT [place] Urine Blood, Urine MODERATE (A) NEGATIVE 08/16/2019 [facility] 9:25 AM CDT [place] pH, Urine 5.0 5.0 - 7.0 08/16/2019 [facility] 9:25 AM CDT [place] Protein, 30 (A) NEGATIVE-TRA 08/16/2019 [facility] Urine CE mg/dL 9:25 AM CDT [place] Urobilinogen, 0.2 0.2 - 1.0 08/16/2019 [facility] Urine E.U./dL 9:25 AM CDT [place] Nitrite, NEGATIVE NEGATIVE 08/16/2019 [facility] Urine 9:25 AM CDT [place] Leukocytes, SMALL (A) NEGATIVE 08/16/2019 [facility] Urine 9:25 AM CDT [place] Specimen Anatomical Collection Method Collection Time Receive d Time (Source) Location / / Volume Laterality Urine (Urine, 08/16/2019 9:08 AM 08/16/19 20 9:10 Clean Catch) CDT AM CDT Radha Sharma MD LAB URINE ORDERABLES Performing Organization Address City/State/ZIP Code Phon e Number [facility] [place] [facility] [address] [place] [address] documented in this encounter Visit Diagnoses Diagnosis UTI symptoms - Primary documented in this encounter Care Teams Director Global Medical Affairs Relationship Specialty Start Date End Date Corrine Vazquez MD PCP - General Family Medicine 07/07/19 08/19/[address] [place] [address] documented as of this encounter
--- OUTSIDE RECORDS SUMMARY | 2022-01-21 14:04 | XMS_ITS | Encounter Summary ---
:1945 Author Organization [facility] Address [address] [place] [address] Care Team Providers Name Role Phone Corrine Vazquez MD Primary Care Provider Reason for Visit Reason Comments Med Refill Encounter Details Date Type Department Care Team Description 07/20/2019 Refill [place] Corrine Vazquez, Frequency of micturition; [address] [address] Anemia, unspecified type [place], [place] [address] [place] [address] [place] [address] Social History Tobacco Use Types Packs/Day Years [...] She would like Ferrous Sulfate renewed at [facility] [place] Telephone Encounter - Kenia Baron - 07/25/2019 3:45 PM CDT Patient returned nurse phone call. Please call [phone]. Telephone Encounter - Vero Interiano RN - [...] Peter Ramesh (02/05/2021 Abbie Murray, 11:19 AM TUMBLERS SUPERVISOR) RN Note: Formatting of this note is differe nt from the original. Routine Health Management Care Team Patient Care Team: Corrine Vazquez MD as PCP - General ([facility]) Yossi Potts, RN as Registered Nurse (Diabetes Education) Abbie Ramesh RN as Forklift Material Handler Future Scheduled Appointments No future appointments. [...] type documented in this encounter Care Teams Fabricating Machine Operator Relationship Specialty Start Date End Date Corrine Vazquez MD PCP - General Family Medicine 07/07/19 08/19/[address] [place] [address] documented as of this encounter
--- OUTSIDE RECORDS SUMMARY | 2022-01-21 14:04 | XMS_ITS | Encounter Summary ---
:1945 Author Organization [facility] Address [address] [place] [address] Care Team Providers Name Role Phone Adriane Patel Ronak PRODUCTION PLANNER SCHEDULER, EMPLOYEE'S REPRESENTATIVE Primary Care Provider [phone] Reason for Visit Reason Comments Med Refill Encounter Details Date Type Department Care Team Description 06/18/2019 Refill [place] Endocrin[place] Bacilio Stewart, Type 2 diabetes mellitus [address] [place] [address] [address] complication, without [phone] [place] [address] insulin ([facility]) Social History Tobacco Use Types Packs/Day [...] Miscellaneous Notes Telephone Encounter - Sumaya Mckoy CERTIFIED DETENTION DEPUTY - 06/21/2019 12:39 PM CDT Last visit [...] Peter Ramesh (02/05/2021 Abbie Murray 11:19 AM PUMP TECHNICIAN) RN Note: Formatting of this note is differe nt from the original. Routine Health Management Care Team Patient Care Team: Corrine Vazquez MD as PCP - General ([facility] Medicine) Yossi Potts, RN as Registered Nurse (Diabetes Education) Abbie Ramesh, RN as Plant Propagator Future Scheduled Appointments No future appointments. Health [...] (HCC) documented in this encounter Care Teams Pharmacy Clinical Specialist Relationship Specialty Start Date End Date Adriane Patel, PRODUCTION PLANNER SCHEDULER, EMPLOYEE'S REPRESENTATIVE PCP - General 09/22/17 07/06/19 [address] [place], [place] [address] documented as of this encounter
--- OUTSIDE RECORDS SUMMARY | 2022-01-21 14:04 | XMS_ITS | Encounter Summary ---
:[address] [facility] Address [address] [place] [address] Care Team Providers Name Role Phone Adriane Patel Ronak INTERNAL CONTROLS SPECIALIST, EMPLOYMENT LEGAL ASSISTANT Primary Care Provider [phone] Reason for Visit Reason Comments Diabetes Encounter Details Date Type Department Care Team Description 06/13/2019 [facility] Endocrinology Bacilio Stewart, Type 2 diabetes mellitus wit h other specified complication, with long-term current use of insulin (HCC) (Primary Dx); [address] [facility] MBBS Mixed hyperlipidemia; [place] [address] [address] [facility] Stage 3 chronic kidney disease (HCC); [phone] [place], [place] Essential hype rtension; [address] Pain of upper abdomen Social History Tobacco [...] water are unavailable, please use alcohol-based hand plumbing designer. Cover your coughs and sneezes with a [...] 06/13/19 Primary care provider: Adriane Patel APRN, EMPLOYMENT LEGAL ASSISTANT Reason for visit: Marcial Adams is a [...] 14 units about a week ago. Our biogeographer, Denny Potts, has been in touch with [...] Last eye exam showed no retinopathy in [place]. Dorsal aspectof toes hurts sometimes. Denies any [...] More than three times a week Attends alevism service: More than 4 times per year [...] was 35 minutes. Bacilio Stewart MD Staff Press Tender documented in this encounter Plan of Treatment Not on filedocumented as of this encounter Goals Goal Patient Goal Associated Recent Patient-Stated? Author Type Problems Progress Routine Health General No change No Domitila, Management (02/05/2021 Abbie Murray, 11:19 AM SCRAP BALER) RN Note: Formatting of this note is differe nt from the original. Routine Health Management Care Team Patient Care Team: Corrine Vazquez MD as PCP - General ([facility] Medicine) Yossi Potts, RN as Registered Nurse (Diabetes Education) Abbie Ramesh RN as Tele Tech Future Scheduled Appointments No future appointments. [...] Signature Cholesterol 183 0 - 199 09/06/2019 [facility] mg/dL 3:02 PM [facility] Comment: Recommended by National Cholesterol [...] 40 - 60 mg/dL 09/06/2019 3:02 PM [facility] Comment: -------- HDL Ranges [...] [facility] [address] [place] [address] (ABNORMAL) Hemoglobin A1c (09/06/2019 8:08 AM CDT) Analysis Performed At Patho logist Time Signature Hemoglobin A1C 8.3 (H) 4.0 - 5.6 09/06/2019 [place] % A1C 2:39 PM T [facility] Comment: Reference Range 4.0-5.6% [...] CITY LAB BLOOD ORDERABLES Performing Organization Address City/[facility]/ZIP Code Phon e Number [facility] [address] [place] [address] (ABNORMAL) Basic metabolic panel (09/06/2019 8:08 AM CDT) P athologist Signature Sodium 139 135 - 145 09/06/2019 [facility] mmol/L 8:31 AM CDT [place] Potassium 4.0 3.5 - 5.1 09/06/2019 [facility] mmol/L 8:31 AM CDT [place] Comment: . Chloride 103 98 - 107 mmol/L 09/06/2019 8:31 AM CDT O [facility] [place] Comment: . CO2 28 22 - 29 mmol/L 09/06/2019 8:31 AM CDT OM [facility] [place] Comment: . Creatinine 1.4 (H) 0.4 - 1.2 mg/dL 09/06/2019 8:31 AM CDT [facility] [place] Comment: . BUN 28 (H) 5 - 25 mg/dL 09/06/2019 8:31 AM CDT [facility] [place] Comment: . Glucose 157 (H) 70 - 100 mg/dL 09/06/2019 8:31 AM CDT [facility] [place] Calcium, Total,S 9.7 8.4 - 10.2 mg/dL 09/06/2019 8:31 AM CDT [facility] [place] Comment: . Specimen Anatomical Collection Method Collection Time Receive d Time (Source) Location / / Volume Laterality Blood 09/06/2019 8:08 AM 0 8:20 CDT AM CDT Bacilio Stewart [facility] LAB BLOOD ORDERABLES Performing Organization Address [facility]/ZIP Code Phon e Number [facility] [place] [address] [place] [address] (ABNORMAL) Liver panel (09/06/2019 8:08 AM CDT) Analysis Performed At Patho logist Time Signature Total Protein 7.6 6.3 - 8.2 09/06/2019 [facility] g/dL 3:02 PM [facility]T [facility] Albumin, Serum 4.0 3.5 - 5.0 09/06/2019 [facility] g/dL 3:02 PM CDT [facility] Total Bilirubin <0.7 0.1 - 1.0 09/06/2019 [facility] mg/dL 3:02 PM [facility] Bilirubin, <0.1 0.0 - 0.3 09/06/2019 [facility] Direct mg/dL 3:02 PM [facility] AST 28 8 - 43 U/L 09/06/2019 [place] 3:02 PM [facility] Alkaline 99 38 - 128 09/06/2019 [facility] Phosphatase U/L 3:02 PM [facility] ALT (SGPT) 52 (H) 0 - 34 U/L 09/06/2019 [place] 3:02 PM [facility] Specimen Anatomical Collection Method Collection Time Receive d Time (Source) Location / / Volume Laterality Blood 09/06/2019 8:08 AM 0 1:16 CDT PM CDT Bacilio [facility] LAB BLOOD ORDERABLES Performing Organization Address City/State/ZIP Code Phon e Number [facility] [address] [place] [address] documented in this encounter Visit Diagnoses Diagnosis Type 2 diabetes mellitus with other spec ified complication, with long-term current use of insulin (HCC) - Primary Mixed hyperlipidemia Stage 3 chronic kidney disease (HCC) Essential hypertension Unspecified essential hypertension Pain of upper abdomen documented in this encounter Care Teams Data Center Architect Relationship Specialty Start Date End Date Adriane Patel APRN, EMPLOYMENT LEGAL ASSISTANT PCP - General 09/22/17 07/06/19 100 [place] [address] documented as of this encounter
--- OUTSIDE RECORDS SUMMARY | 2022-01-21 14:04 | XMS_ITS | Encounter Summary ---
:1945 Author Organization [facility] Address [address] [place] [address] Care Team Providers Name Role Phone Adriane Patel SALES AND TRAINING SPECIALIST, VEHICLE MAINTENANCE SUPERVISOR Primary Care Provider Reason for Visit Reason Comments Med Refill Encounter Details Date Type Department Care Team Description 04/12/2019 Refill [place] Adriane Patel, Mixed hyperlipidemia [address] LEONARD RESENDEZ (Primary Dx) [place], [place] [address] [address] [address] [address] [phone] [place], [place] [address] Social History Tobacco Use [...] half tablet once daily (2.5mg per day) OP ADMIN Telephone Encounter - Ifeoma Parikh LPN - [...] advise pharmacy on refill request. Thank you OP ADMIN documented in this encounter Plan of Treatment Not on filedocumented as of this encounter Goals Goal Patient Goal Associated Recent Patient-Stated? Author Type Problems Progress Routine Health General No change Peter Monzon (02/05/2021 Abbie Murray, 11:19 AM HADOOP ADMIN) RN Note: Formatting of this note is differe nt from the original. Routine Health Management Care Team Patient Care Team: Corrine Vazquez MD as PCP - [facility] Yossi Potts, RN as Registered Nurse (Diabetes Education) Abbie Ramesh RN as Bench Carpenter Future Scheduled Appointments No future appointments. Health [...] Primary documented in this encounter Care Teams Physical Therapy Assistant Instructor Relationship Specialty Start Date End Date Adriane Patel, SALES AND TRAINING SPECIALIST, VEHICLE MAINTENANCE SUPERVISOR PCP - General 09/22/17 07/06/19 100 [place] [address] documented as of this encounter
--- OUTSIDE RECORDS SUMMARY | 2022-01-21 14:04 | XMS_ITS | Encounter Summary ---
:1945 Author Organization [facility] Address [address] [place] [address] Care Team Providers Name Role Phone Corrine Vazquez MD Primary Care Provider Encounter Details Date Type Department Care Team Description 08/18/2019 Orders Only [place] Radha Sharma Urinary tract [address] [place] [address] hematuria, site [phone] unspecified (Pr imary Dx) Social History Tobacco [...] No change Hailee Ramesh Management (02/05/2021 Abbie J, 11:19 AM ASSEMBLER FLUORESCENT LIGHTS) RN Note: Formatting of this note is differe nt from the original. Routine Health Management Care Team Patient Care Team: Corrine Vazquez MD as PCP - General ([facility] Medicine) Yossi Potts, RN as Registered Nurse (Diabetes Education) Abbie Ramesh, RN as Senior Project Leader/Team Lead Future Scheduled Appointments No future appointments. [...] Primary documented in this encounter Care Teams Trumpet Player Relationship Specialty Start Date End Date Corrine Vazquez MD PCP - General Family Medicine 07/07/19 08/19/[address] [place] [address] documented as of this encounter
--- OUTSIDE RECORDS SUMMARY | 2022-01-21 14:04 | XMS_ITS | Encounter Summary ---
:1945 Author Organization [facility] Address [address] [place] [address] Care Team Providers Name Role Phone Corrine Vazquez MD Primary Care Provider Reason for Visit Reason Onset Date Comments RX 08/24/2019 Encounter Details Date Type Department Care Team Description 08/24/2019 Telephone [place] Corrine Vazquez MD RX [address] [place], [place] [address] [place], [place] [phone] [address] (Wo rk) Social History Tobacco Use Types [...] this is too expensive she should not picket labor union but then let us know. She should not take any more tetracycline Telephone Encounter - Margareth Sanchez RN - 08/24/2019 12:16 PM CDT Patient is taking Tetracycline and she reports having diarrhea since starting this medication. The pharmacy was only able to fill 1/2 the Rx. She needs to picket labor union the second half today and she questions [...] effects of Tetracycline. Please call her at [phone]. documented in this encounter Plan of Treatment Not on filedocumented as of this encounter Goals Goal Patient Goal Associated Recent Patient-Stated? Author Type Problems Progress Routine Health General No change No Peter Ramesh (02/05/2021 Abbie Murray, 11:19 AM ANESTHESIA RESIDENT) RN Note: Formatting of this note is differe nt from the original. Routine Health Management Care Team Patient Care Team: Corrine Vazquez MD as PCP - [facility] Yossi Potts, RN as Registered Nurse (Diabetes Education) Abbie Ramesh, ERA as Sed High School Teacher Future Scheduled Appointments No future [...] ry documented in this encounter Care Teams Ibm Websphere Commerce Developer Relationship Specialty Start Date End Date Corrine Vazquez MD PCP - General Family Medicine 07/07/19 08/19/[address] [place] [address] documented as of this encounter
--- OUTSIDE RECORDS SUMMARY | 2022-01-21 14:04 | XMS_ITS | Encounter Summary ---
:1945 Author Organization [facility] Address [address] [place] [address] Care Team Providers Name Role Phone Corrine Vazquez MD Primary Care Provider Reason for Visit Reason Comments Med Refill Encounter Details Date Type Department Care Team Description 07/14/2019 Refill [place] Endocrinology Bacilio Stewart, Type 2 diabetes mellitus [address] [facility] MBBS with hyperglycemia, [place] [address] [address] unspecified whether long [phone] [place], [place] term insulin u ([facility]) [address] (Primary Dx) Social History Tobacco Use Types [...] Domitila, Management (02/05/2021 Abbie Murray, 11:19 AM BURR PICKER) RN Note: Formatting of this note is differe nt from the original. Routine Health Management Care Team Patient Care Team: Corrine Vazquez MD as PCP - General ([facility] Medicine) Yossi Potts, RN as Registered Nurse (Diabetes Education) Abbie Ramesh RN as Charge Hand Future Scheduled Appointments No future appointments. [...] diabetes mellitus with hyperglyce luis, unspecified whether supervisor intermediates insulin use (HCC) - Primary documented in this encounter Care Teams Hospice Rn Relationship Specialty Start Date End Date Corrine Vazquez MD PCP - General Family Medicine 07/07/19 08/19/[address] [place] [address] documented as of this encounter
--- OUTSIDE RECORDS SUMMARY | 2022-01-21 14:04 | XMS_ITS | Encounter Summary ---
:1945 Author Organization [facility] Address [address] [place] [address] Care Team Providers Name Role Phone Corrine Vazquez MD Primary Care Provider Encounter Details Date Type Department Care Team Description 08/18/2019 Orders Only [place] Radha Sharma Urinary tract [address] [place] infection without [place] [address] hematuria, site [phone] unspecified (Pr imary Dx) Social History Tobacco [...] Ramesh Management (02/05/2021 Abbie J, 11:19 AM PRECISION INSTRUMENT MAKER) RN Note: Formatting of this note is differe nt from the original. Routine Health Management Care Team Patient Care Team: Corrine Vazquez MD as PCP - General [facility] Yossi Potts, RN as Registered Nurse (Diabetes Education) Abbie Ramesh, RN as Research Scholar Future Scheduled Appointments No future appointments. Health [...] Primary documented in this encounter Care Teams Order Packer Or Packager Relationship Specialty Start Date End Date Corrine Vazquez MD PCP - General Family Medicine 07/07/19 08/19/[address] [place] [address] documented as of this encounter
--- OUTSIDE RECORDS SUMMARY | 2022-01-21 14:04 | XMS_ITS | Encounter Summary ---
:[address] [facility] Address [address] [place] [address] Care Team Providers Name Role Phone Adriane Patel Ronak TEACHER RESOURCE, CLINICAL SPECIALTY REP Primary Care Provider [phone] Reason for Visit Consultation (Routine) - Closed Specialty Diagnoses / Procedures Referred By Contact Refer red To Contact Diagnoses Medicare annual wellness visit, initial Corrine Vazquez MD Care Coordination 1705 [facility] [address] [place], [place] [phone] Referral ID Status Reason Start Date Expiration Date Visits V isits Requested Authorized [id number] Closed Specialty 12/23/2018 99 99 Services Required Encounter Details Date Type Department Care Team Description 04/26/2019 Patient Outreach SE Care Abbie Ramesh and coordination of care (Primary Dx); Aldo Murray, RN Type 2 diabetes mellitus with other spec ified complication, with long-term current use of insulin (HCC); [address] [facility] [address] Conjunctivitis of both eyes, unspecified conjunctivitis type; [place], [place] [id number] [place] [address] Stage 3 chronic kidney disease ([facility]) [phone] [place] [address] Social History Tobacco Use Types [...] No 12/23/2018 organizations such as congregational groups, [employer], [employer] or athletic groups, or school groups? How [...] 12/18/2019 ??? Fall Risk Performed 12/24/2019 ??? [facility] Annual Wellness 12/24/2019 ??? Colorectal Cancer Screening: Colonoscopy 05/21/2021 ??? HPV Vaccines Aged Out Lifestyle ??? Keep your medical appointments Future Appointments Date Time Provider Department Center 06/13/2019 11:00 AM JOSE DE JESUS Austin [facility] Result Component ? ? Hemoglobin A1c < 7.0 8.8 8.0 8.7 8.5 8.5 Patient will work towards decreasing A1c to 7 within 6 months (June 2019) a.) Patient will check A1C every three months (Should be less than 7.0) b.) Patient will check blood glucose 2 times daily and report to neonatal intensive care nurse weekly c.) Patient will take [...] Peter Monzon (02/05/2021 Abbie Murray, 11:19 AM TRANSCRIBER) RN Note: Formatting of this note is differe nt from the original. Routine Health Management Care Team Patient Care Team: Corrine Vazquez MD as PCP - [facility] Yossi Potts, RN as Registered Nurse (Diabetes Education) Abbie Ramesh, RN as Newspaper Editor Future Scheduled Appointments No future appointments. Health Maintenance Health Maintenance Topic Date Due Urine Protein Screening 05/31/2020 Lipid Panel 09/05/2020 Glaucoma Screening 67+ Yr 12/25/2020 Ophthalmology Exam 12/25/2020 [facility] Annual Wellness 01/12/2021 Hemoglobin A1C 01/24/2021 Diabetic Foot Exam 03/16/2021 Colorectal Cancer Screening: Colonoscop y 05/21/2021 Fall Risk Performed 06/05/2021 Mammogram 12/03/2021 COVID-19 Vaccine Completed [facility] Pneumococcal Vaccine: <64 Completed [facility] Pneumococcal Vaccine: 65+ [...] (HCC) documented in this encounter Care Teams Assembler Faucets Relationship Specialty Start Date End Date Adriane Patel APRN, CLINICAL SPECIALTY REP PCP - General 09/22/17 07/06/19 100 [facility] [place] [address] documented as of this encounter
--- OUTSIDE RECORDS SUMMARY | 2022-01-21 14:04 | XMS_ITS | Encounter Summary ---
:1945 Author Organization [facility] Address [address] [place] [address] Care Team Providers Name Role Phone Corrine Vazquez MD Primary Care Provider Reason for Visit Reason Onset Date Comments Medication cost 07/22/2019 Encounter Details Date Type Department Care Team Description 07/22/2019 Telephone SE Endocrinology Bacilio Stewart MBBS Medication cost [address] [place] [address] [place] [address] [phone] (Wo rk) Social History Tobacco Use Types [...] and stated that she went to go machine pecan picker her Januvia and normally her cost [...] Domitila, Management (02/05/2021 Abbie Murray, 11:19 AM MEETING PLANNER) RN Note: Formatting of this note is differe nt from the original. Routine Health Management Care Team Patient Care Team: Corrine Vazquez MD as PCP - General ([facility] Yossi Potts, RN as Registered Nurse (Diabetes Education) Abbie Ramesh, RN as Relay Operator Future Scheduled Appointments No future appointments. [...] on filedocumented in this encounter Care Teams [employer] Relationship Specialty Start Date End Date Corrine Vazquez MD PCP - General Family Medicine 07/07/19 08/19/[address] [place] [address] documented as of this encounter
--- OUTSIDE RECORDS SUMMARY | 2022-01-21 14:04 | XMS_ITS | Encounter Summary ---
:1945 Author Organization [facility] Address [address] [place] [address] Care Team Providers Name Role Phone Adriane Patel Ronak ORE SAMPLER, CALL CENTER ASSOCIATE Primary Care Provider [phone] Reason for Visit Reason Onset Date Comments Ozempic 03/11/2019 Encounter Details Date Type Department Care Team Description 03/11/2019 Telephone Endocrinology Bacilio Stewart MBBS Ozempic [address] [place] [address] [place] [address] [phone] (Wo rk) Social History Tobacco Use Types [...] of above message and verbalized an understanding. R AGENT Telephone Encounter - JOSE DE JESUS Austin - 03/11/2019 3:56 PM CST It is completely up to her whether she wants to take a medication or not, I don't have any problem in either case. If she does not take ozempic, she should continue with the same dose of januvia. R AGENT Telephone Encounter - Rebecca Ibrahim MA - 03/11/2019 2:04 PM CST Patient called and stated that she is not wanting to proceed with Ozempic due to the warnings and side effects. Since her visit she has cut out sweets, carbs, snack between meal. Her fasting BG have been 100-116 Noon 92-127 Supper 98-156 Bedtime 165 2 am 129 Please advise R AGENT documented in this encounter Plan of Treatment Not on filedocumented as of this encounter Goals Goal Patient Goal Associated Recent Patient-Stated? Author Type Problems Progress Routine Health General No change Peter Monzon (02/05/2021 Abbie Murray, 11:19 AM BUYER AGENT) RN Note: Formatting of this note is differe nt from the original. Routine Health Management Care Team Patient Care Team: Corrine Vazquez MD as [facility]CP - [facility] Yossi Potts, RN as Registered Nurse (Diabetes Education) Abbie Ramesh RN as Back Strip Machine Operator Future Scheduled Appointments No future [...] filedocumented in this encounter Care Teams Writer Editor Relationship Specialty Start Date End Date Adriane Patel, ORE SAMPLER, CALL CENTER ASSOCIATE PCP - General 09/22/17 07/06/19 100 [facility] [place] [address] documented as of this encounter
--- OUTSIDE RECORDS SUMMARY | 2022-01-21 14:04 | XMS_ITS | Encounter Summary ---
:1945 Author Organization Address [address] [place] [address] Care Team Providers Name Role Phone Corrine Vazquez MD Primary Care Provider Encounter Details Date Type Department Care Team Description 07/26/2019 Orders Only SE Endocrinology Bacilio Stewart, Type 2 diabetes mellitus wit h other specified complication, with long-term current use of insulin (HCC) (Primary Dx); [address] [place] [address] MBBS Stage 3 chronic kidney disease (HCC) [place] [address] [place] [address] [place], [place] [address] Social History Tobacco Use Types Packs/Day Years [...] Peter Ramesh (02/05/2021 Abbie Murray, 11:19 AM FUR PLUCKER) RN Note: Formatting of this note is differe nt from the original. Routine Health Management Care Team Patient Care Team: Corrine Vaqzuez MD as PCP - General ([facility] Medicine) Yossi Potts, RN as Registered Nurse (Diabetes Education) Abbie Ramesh RN as Physician Aide Future Scheduled Appointments No future appointments. [...] (HCC) documented in this encounter Care Teams Automotive Tire Tester Relationship Specialty Start Date End Date Corrine Vazquez MD PCP - General Family Medicine 07/07/19 08/19/[address] [place] [address] documented as of this encounter
--- OUTSIDE RECORDS SUMMARY | 2022-01-21 14:05 | XMS_ITS | Encounter Summary ---
:1945 Author Organization [facility] Address [address] [place] [address] Care Team Providers Name Role Phone Adriane Patel Ronak ORDER FILLER, SOLAR/RENEWABLE ENERGY SALES Primary Care Provider [phone] Reason for Referral Consultation (Routine) - Closed Specialty Diagnoses / Procedures Referred By Contact Refer red To Contact Diagnoses Medicare annual wellness visit, initial Corrine Vazquez MD Care Coordination 1705 [facility] [address] [place], [place] [phone] Referral ID Status Reason Start Date Expiration Date Visits V isits Requested Authorized [id number] Closed Specialty 12/23/2018 99 99 Services Required Scheduling Instructions Staff from this department will contact the patient to schedule an appointment. IFIED OPHTHALMIC SURGICAL ASSISTANT Reason for Visit Reason Comments Medicare Annual Wellness Visit Initial Encounter Details Date Type Department Care Team Description 12/23/2018 Office Visit [place] Medicare annual wellness [address] visit, initial (Primary [place], [place] [address] Dx) [phone] Social History Tobacco Use Types Packs/Day Years [...] RESOURCES: Patient Care Team: Adriane Patel APRN, SOLAR/RENEWABLE ENERGY SALES as PCP - General JOSE DE JESUS Austin as Diabetes Management (Endocrinology) Yossi Potts RN as Registered Nurse (Diabetes Education) Eye Care: Dr Hadley in [place]: [facility]- 1 week ago Dental Care: Pharmacy: [facility] [address] [address] [facility] [address] [place] [address] Other: Visit Vitals Smoking Status Never Smoker [...] BY MOUTH DAILY 90 tablet 3 ??? qymzzoby-iujppalir-prypoblkyierc (MAXITROL) 3.5-64176-9.1 ophthalmic suspension Administer 1 drop into affected [...] disease ??? Gout ??? Hyperlipidemia ??? Other detention (current) drug therapy ??? Paresthesia of skin [...] the patient's advance care planning wishes:: Yes Evangelical or spiritual beliefs that impact treatment:: No [...] transfusion before 1991. ?? Those born between [birth year]-9027. Glaucoma: Medicare Part B (Medical Insurance) covers [...] of one pack a dayfor 30 years). IFIED OPHTHALMIC SURGICAL ASSISTANT documented in this encounter Plan of Treatment Scheduled Referrals Name Type Priority Associated Order Schedule Diagnoses Ambulatory referral Outpatient Referral Routine Medicare corie rodgers Ordered: to Care Coordination wellness visit, 08/2018 initial documented as of this encounter Goals Goal Patient Goal Associated Recent Patient-Stated? Author Type Problems Progress Routine Health General No change No Peter Ramesh (02/05/2021 Abbie Murray, 11:19 AM CERTIFIED OPHTHALMIC SURGICAL ASSISTANT) RN Note: Formatting of this note is differe nt from the original. Routine Health Management Care Team Patient Care Team: Corrine Vazquez MD as PCP - [facility] Yossi Potts, RN as Registered Nurse (Diabetes Education) Abbie Ramesh, ERA as Physician Specialist Future Scheduled Appointments No future appointments. Health Maintenance Health Maintenance Topic Date Due Urine Protein Screening 05/31/2020 Lipid Panel 09/05/2020 Glaucoma Screening 67+ Yr 12/25/2020 Ophthalmology Exam 12/25/2020 [facility] Annual Wellness 01/12/2021 [...] Primary documented in this encounter Care Teams Clinical Services Specialist Relationship Specialty Start Date End Date Adriane Patel APRN, SOLAR/RENEWABLE ENERGY SALES PCP - General 09/22/17 07/06/19 100 [facility] [place] [address] documented as of this encounter
--- OUTSIDE RECORDS SUMMARY | 2022-01-21 14:05 | XMS_ITS | Encounter Summary ---
:[address] [facility] Address [address] [place] [address] Care Team Providers Name Role Phone Adriane Patel Ronak HAT BLOCK BENCH HAND, CORPORATE SECURITIES RESEARCH ANALYST Primary Care Provider [phone] Reason for Visit Consultation (Routine) - Closed Specialty Diagnoses / Procedures Referred By Contact Refer red To Contact Diagnoses Medicare annual wellness visit, initial Corrine Vazquez MD Care Coordination [address] [place], [place] [phone] Referral ID Status Reason Start Date Expiration Date Visits V isits Requested Authorized [id number] Closed Specialty 12/23/2018 99 99 Services Required Encounter Details Date Type Department Care Team Description 03/01/2019 Patient Outreach SE Care Coordination Abbie Ramesh Counseling and coordination of care (Primary Dx); 210 9[facility] Terri RN Type 2 diabetes mellitus with other spec ified complication, with long-term current use of insulin ([facility]); [place] [address] [address] Rheumatoid arthritis, involv ing unspecified site, unspecified rheumatoid factor presence ([facility]) [phone] [place] [address] Social History Tobacco Use Types [...] 12/23/2018 organizations such as moravian groups, unions, [employer] or athletic groups, or school groups? How [...] 12/18/2019 ??? Fall Risk Performed 12/24/2019 ??? [facility] Annual Wellness 12/24/2019 ??? Colorectal Cancer Screening: Colonoscopy 05/21/2021 ??? HPV Vaccines Aged Out Lifestyle ??? Keep your medical appointments Future Appointments Date Time Provider Department Center 03/07/2019 10:00 AM JOSE DE JESUS Austin [facility] Result Component ? ? Hemoglobin A1c < 7.0 8.0 8.7 8.5 8.5 9.0 Patient will work towards decreasing A1c to 7 within 6 months (June 2019) a.) Patient will check A1C every three months (Should be less than 7.0) b.) Patient will check blood glucose 2 times daily and report to animal caretaker weekly c.) Patient will take medication as prescribed d.) Patient will exercise for 5 minutes 2 days per week e.) Patient will maintain a food diary f.) Patient will weigh daily and record g.) Patient will follow up with Endocrine Dr Stewart h.) Patient will schedule a foot exam: done i.) Patient will schedule an eye exam: done TALLIZER OPERATOR documented in this encounter Plan of Treatment Not on filedocumented as of this encounter Goals Goal Patient Goal Associated Recent Patient-Stated? Author Type Problems Progress Routine Health General No change Peter Monzon (02/05/2021 Abbie Murray, 11:19 AM CRYSTALLIZER OPERATOR) RN Note: Formatting of this note is differe nt from the original. Routine Health Management Care Team Patient Care Team: Corrine Vazquez MD as PCP - General ([facility] Medicine) Yossi Potts, RN as Registered Nurse (Diabetes Education) Abbie Ramesh, RN as Wilton Weaver Future Scheduled Appointments No future appointments. [...] documented in this encounter Care Teams Infection Prevention Practitioner Relationship Specialty Start Date End Date Adriane Patel, HAT BLOCK BENCH HAND, CORPORATE SECURITIES RESEARCH ANALYST PCP - General 09/22/17 07/06/19 100 [place] [address] documented as of this encounter
--- OUTSIDE RECORDS SUMMARY | 2022-01-21 14:05 | XMS_ITS | Encounter Summary ---
:1945 Author Organization [facility] Address [address] [place] [address] Care Team Providers Name Role Phone Adriane Patel Ronak AUTOMOTIVE SALESPERSON, INVESTMENT BROKER Primary Care Provider Encounter Details Date Type Department Care Team Description 12/25/2018 Orders Only [place] Corrine Vazquez MD [address] [facility] [address] [place], [place] [address] [place], [place] [phone] (Wo rk) Social History Tobacco Use Types [...] Peter Ramesh (02/05/2021 Abbie Murray, 11:19 AM LICENSED PHYSICAL THERAPIST ASSISTANT) RN Note: Formatting of this note is differe nt from the original. Routine Health Management Care Team Patient Care Team: Corrine Vazquez MD as PCP - General ([facility] Yossi Potts, RN as Registered Nurse (Diabetes Education) Abbie Ramesh RN as Safety And Security Manager Future Scheduled Appointments No future appointments. [...] on filedocumented in this encounter Care Teams Brownell Operator Relationship Specialty Start Date End Date Adriane Patel, AUTOMOTIVE SALESPERSON, INVESTMENT BROKER PCP - General 09/22/17 07/06/19 100 [place] [place] [address] documented as of this encounter
--- OUTSIDE RECORDS SUMMARY | 2022-01-21 14:05 | XMS_ITS | Encounter Summary ---
:1945 Author Organization [facility] Address [address] [place] [address] Care Team Providers Name Role Phone Adriane Patel Ronak FRUIT GRADER OPERATOR, PEDODONTIST Primary Care Provider [phone] Reason for Visit Reason Comments Diabetes Encounter Details Date Type Department Care Team Description 12/01/2018 Office Visit SE Endocrinology Bacilio Stewart, Type 2 diabetes mellitus wit h other specified complication, unspecified whether detention insulin use (HCC) (Primary Dx); [address] [facility] MBBS Mixed hyperlipidemia; [place] [address] [address] [facility] SE Stage 3 chronic kidney disease (HCC); [phone] [place], [place] Essential hype rtension; [address] Type 2 diabetes mellitus with other spec ified complication, without long-term current use of insulin ([facility]) Social History Tobacco Use Types [...] insulin, currently Glargine 13 units daily. Our cosmetology educator, Denny Potts, has been in touch [...] Last eye exam showed no retinopathy in [place]. Denies any numbness or tingling sensation. No [...] file Gets together: Not on file Attends worship service: Not on file Active member of [...] coordination of care. Bacilio Stewart MD Staff Necktie Centralizing Machine Operator Adriane Patel APRN, LEONARD - 12/01/2018 9:00 AM CDT Reviewed. documented in this encounter Plan of Treatment Not on filedocumented as of this encounter Results (ABNORMAL) Hemoglobin A1c (03/01/2019 11:39 AM HISTOLOGY TEACHER) Analysis Performed At [facility] Time Signature Hemoglobin A1C 8.8 (H) 4.0 - 5.6 03/02/2019 IBIS % A1C 1:45 PM [facility] Comment: Reference [...] Volume Laterality Blood 03/01/2019 11:39 03/02/2019 AM HISTOLOGY TEACHER 12:55 PM HISTOLOGY TEACHER Bacilio DELA CRUZ LAB BLOOD ORDERABLES Performing Organization Address City/State/ZIP Code Phon e Number [facility] [address] [place] [address] documented in this encounter Visit Diagnoses Diagnosis Type 2 diabetes mellitus with other spec ified complication, unspecified whether long term care pharmacist insulin use (HCC) - Primary Mixed hyperlipidemia Stage 3 chronic kidney disease (HCC) Essential hypertension Unspecified essential hypertension Type 2 diabetes mellitus with other spec ified complication, without long-term current use of insulin (HCC) documented in this encounter Care Teams Applied Biology Professor Relationship Specialty Start Date End Date Adriane Patel APRN, PEDODONTIST PCP - General 09/22/17 07/06/19 100 [place] [address] documented as of this encounter
--- OUTSIDE RECORDS SUMMARY | 2022-01-21 14:05 | XMS_ITS | Encounter Summary ---
:1945 Author Organization [facility] Address [address] [place] [address] Care Team Providers Name Role Phone Adriane Patel Ronak DIRECTOR CPG, TREASURY REPRESENTATIVE Primary Care Provider [phone] Encounter Details Date Type Department Care Team Description 03/01/2019 Lab [place] Type 2 diabetes mellitus wit h [address] other specified complication , [place] [address] without long-term current us e [phone] of insulin (HCC ) Social History Tobacco [...] Peter Monzon (02/05/2021 Abbie Murray, 11:19 AM SOLE ROUNDER) RN Note: Formatting of this note is differe nt from the original. Routine Health Management Care Team Patient Care Team: Corrine Vazquez MD as PCP - [facility] ([facility] Yossi Potts, RN as Registered Nurse (Diabetes Education) Abbie Ramesh, ERA as Us Marketing Director Future Scheduled Appointments No future appointments. [...] Type 2 diabetes Res ults for this SOLE ROUNDER mellitus with other procedur e are in the specified results section . complication, without long-term current use of insulin (HCC) documented in this encounter Results (ABNORMAL) Hemoglobin A1c (03/01/2019 11:39 AM [facility]) Analysis Performed At Patho logist Time Signature Hemoglobin A1C 8.8 (H) 4.0 - 5.6 03/02/2019 IBIS % A1C 1:45 PM [facility] Comment: Reference Range 4.0-5.6% [...] Volume Laterality Blood 03/01/2019 11:39 03/02/2019 AM SOLE ROUNDER 12:55 PM SOLE ROUNDER Bacilio DELA CRUZ LAB BLOOD ORDERABLES Performing Organization Address City/State/ZIP Code Phon e Number [facility] [address] [place] [address] documented in this encounter Visit Diagnoses Diagnosis Type 2 diabetes mellitus with other spec ified complication, without long-term current use of insulin (HCC) documented in this encounter Care Teams Insole Filler Relationship Specialty Start Date End Date Adriane Patel, DIRECTOR CPG, TREASURY REPRESENTATIVE PCP - General 09/22/17 07/06/[address] [place] [address] documented as of this encounter
--- OUTSIDE RECORDS SUMMARY | 2022-01-21 14:05 | XMS_ITS | Encounter Summary ---
:1945 Author Organization [facility] Address [address] [place] [address] Care Team Providers Name Role Phone Patel, Adriane Simons APRN, LEONARD Primary Care Provider [phone] Reason for Visit Reason Comments UTI Encounter Details Date Type Department Care Team Description 12/07/2018 Office Visit [place] Adriane Patel Urinary tract infection with out hematuria, site unspecified (Primary Dx); [address] M, LEONARD RESENDEZ Upper respiratory tract infection, unspe cified type [place], [place] 100 [facility] [address] [place] [address] Social History Tobacco Use Types Packs/Day Years [...] and is under the care of a business data analyst. No fever, no chills. No nausea,vomiting and/or [...] and is under the care of a business data analyst in the [facility]. The following portions of the [...] each, Rfl: 3 ??? ACCU-CHEK FASTCLIX LANCETS [facility], Check blood glucose 4 times a day, [...] NEGATIVE NEGATIVE mg/dL Final ? ? Specific [place], Urine 12/07/2018 1.020 1.000 ->=1.030 Final ??? [...] plan of care. Adriane Patel APRN, LEONARD documented in this encounter Plan of Treatment Not on filedocumented as of this encounter Results Urine culture (clean catch) (12/07/2018 2:55 PM CDT) [facility] Method Time Signature Urine Culture <10,000 12/08/2018 [place] cfu/ml No 12:56 PM CDT [facility] further ID. LABORATORY Specimen Anatomical Collection Method Collection Time Receive d Time (Source) Location / / Volume Laterality Urine, Clean 12/07/2018 2:55 PM 9 Catch CDT 12:21 PM CDT Narrative [facility] - 11/17 12:56 PM CDT Patient does not have an Amoxicillin or PCN allergy Adriane Patel APRN, LEONARD LAB MICROBIOLOGY - GENERA L ORDERABLES Performing Organization Address City/State/ZIP Code Phon e Number [facility] [address] [place] [address] (ABNORMAL) Urinalysis with reflex microscopic (clean catch) (12/07/2018 2:55 PM CDT) [facility] Method Time Signature Type CLEAN CATCH 12/08/2018 [facility] [place] 9:29 AM CDT [place] Color, Urine YELLOW YELLOW 12/08/2018 [facility] [place] 9:29 AM CDT [place] Clarity, CLEAR CLEAR 12/08/2018 [facility] Urine 9:29 AM CDT [place] Glucose, 100 (A) NEGATIVE 12/08/2018 [facility] Urine mg/dL 9:29 AM CDT [place] Bilirubin, NEGATIVE NEGATIVE 12/08/2018 [facility] [place] Urine 9:29 AM CDT [place] Ketones, NEGATIVE NEGATIVE 12/08/2018 [facility] Urine mg/dL 9:29 AM CDT [place] Specific 1.020 1.000 12/08/2018 [facility] [place] [place], ->=1.030 9:29 AM CDT [place] Urine Blood, Urine MODERATE (A) NEGATIVE 12/08/2018 [facility] [place] 9:29 AM CDT [place] pH, Urine 5.5 5.0 - 7.0 12/08/2018 [facility] [place] 9:29 AM CDT [place] Protein, 30 (A) NEGATIVE-TRA 12/08/2018 [facility] [place] Urine CE mg/dL 9:29 AM CDT [place] Urobilinogen, 0.2 0.2 - 1.0 12/08/2018 [facility] [place] Urine E.U./dL 9:29 AM CDT [place] Nitrite, NEGATIVE NEGATIVE 12/08/2018 [facility] [place] Urine 9:29 AM CDT [place] Leukocytes, TRACE (A) NEGATIVE 12/08/2018 [facility] [place] Urine 9:29 AM CDT [place] Specimen Anatomical Collection Method Collection Time Receive d Time (Source) Location / / Volume Laterality Urine (Urine, 12/07/2018 2:55 PM 12/08/19 19 2:56 Clean Catch) CDT PM CDT Adriane Patel APRN, METAL MODEL MAKER LAB URINE ORDERABLES Performing Organization Address City/State/ZIP Code Phon e Number [facility] [place] [address] [place] [address] documented in this encounter Visit Diagnoses Diagnosis Urinary tract infection without hematuri a, site unspecified - Primary Upper respiratory tract infection, unspe cified type Urinary tract infection without hematuri a, site unspecified documented in this encounter Care Teams Insurance Claims Adjuster Relationship Specialty Start Date End Date Adriane Patel APRN, METAL MODEL MAKER PCP - General 09/22/17 07/06/19 100 [facility] [place] [address] documented as of this encounter
--- OUTSIDE RECORDS SUMMARY | 2022-01-21 14:05 | XMS_ITS | Encounter Summary ---
:1945 Author Organization [facility] Address [address] [place] [address] Care Team Providers Name Role Phone Jorge Adriane Simons APRN, DRUM SANDER SETTER Primary Care Provider [phone] Encounter Details Date Type Department Care Team Description 12/23/2018 Patient Outreach SE Care Coordination Abbie Ramesh Counseling and coordination of care (Primary Dx); [address] [facility] Terri RN Type 2 diabetes mellitus with other spec ified complication, with long-term current use of insulin ([facility]) [place] [address] [place] [address] [place] [address] Social History Tobacco Use Types Packs/Day Years [...] better. Follow-up plan: ??? Follow up with broadcast traffic coordinator in 1 week to discuss care [...] 12/18/2019 ??? Fall Risk Performed 12/24/2019 ??? [facility] Annual Wellness 12/24/2019 ??? Colorectal Cancer Screening: Colonoscopy 05/21/2021 Lifestyle ??? Keep your medical appointments Future Appointments Date Time Provider Department Center 03/02/2019 10:00 AM [facility] [place] LAB 1 [place] 03/07/2019 9:00 AM JOSE [facility] JESUS [facility] Result Component ? ? Hemoglobin A1c < 7.0 8.0 8.7 8.5 8.5 9.0 Patient will work towards decreasing A1c to 7 within 6 months (June 2019) a.) Patient will check A1C every three months (Should be less than 7.0) b.) Patient will check blood glucose 2 times daily and report to family day care provider weekly c.) Patient will take medication as prescribed d.) Patient will exercise for 5 minutes 2 days per week e.) Patient will maintain a food diary f.) Patient will weigh daily and record g.) Patient will follow up with Endocrine Dr tSewart h.) Patient will schedule a foot exam: done i.) Patient will schedule an eye exam: done ITIONAL CHINESE HERBALIST Abbie Ramesh RN - 12/23/2018 10:20 AM CST Care Plan - Care Coordination Enrolled date: Discussion Date: 12/23/18 11:40 AM Patient Information: Preferred Cloth Dyeing Range Tender: patient Preferred Method of communication: Home [phone] (home) Okay to leave detailed message: Yes MyChart: No, Patient refused Literacy Concerns: No Automotive General Sales Manager needed: No Extended Emergency Contact Information Primary Emergency Contact: ALEX BAZAN Mobile Relation: Spouse Automotive General Sales Manager needed? No Healthcare Team: Patient Care Team: Adriane Patel APRN, DRUM SANDER SETTER as PCP - General JOSE DE JESUS [place] as Diabetes Management (Endocrinology) Yossi Potts, RN as Registered Nurse (Diabetes Education) NEETU Gonzalez, RN, PHN as Econometrics Professor To contact your Sales Service Coordinator, please call Care Coordination at [phone] If this is an emergency, call 309 Medications: Current Outpatient Medications: ??? Abatacept (ORENCIA [...] DAILY, Disp: 90 tablet, Rfl: 3 ??? [id number]-dbbvkzlsw-ctldfkllskntt (MAXITROL) [id number] ophthalmic suspension, Administer 1 drop into affected [...] More than three times a week Attends bahai service: More than 4 times per year [...] disease ??? Gout ??? Hyperlipidemia ??? Other longwall headgate operator (current) drug therapy ??? Paresthesia of skin [...] 12/18/2019 ??? Fall Risk Performed 12/24/2019 ??? [facility] Annual Wellness 12/24/2019 ??? Colorectal Cancer Screening: Colonoscopy 05/21/2021 ? ? Hemoglobin A1c < 7.0 Patient will work towards decreasing A1c to 7 within 6 months (June 2019) a.) Patient will check A1C every three months (Should be less than 7.0) b.) Patient will check blood glucose 2 times daily and report to family day care provider weekly c.) Patient will take medication as [...] 03/07/2019 9:00 AM JOSE DE JESUS [facility] Emergency Plans: Diabetes Management Emergency Preparation [...] low blood glucose readings in 24 hours! ITIONAL CHINESE HERBALIST documented in this encounter Plan of Treatment Not on filedocumented as of this encounter Goals Goal Patient Goal Associated Recent Patient-Stated? Author Type Problems Progress Routine Health General No change No Peter Ramesh (02/05/2021 Abbie Murray, 11:19 AM TRADITIONAL CHINESE HERBALIST) RN Note: Formatting of this note is differe nt from the original. Routine Health Management Care Team Patient Care Team: Corrine Vazquez MD as PCP - General ([facility] Medicine) Yossi Potts, RN as Registered Nurse (Diabetes Education) Abbie Ramesh RN as Econometrics Professor Future Scheduled Appointments No future appointments. [...] (HCC) documented in this encounter Care Teams Pocket Machine Operator Relationship Specialty Start Date End Date Adriane Patel, SERVICE DELIVERY ANALYST, DRUM SANDER SETTER PCP - General 09/22/17 07/06/19 100 [facility] [place] [address] documented as of this encounter
--- OUTSIDE RECORDS SUMMARY | 2022-01-21 14:05 | XMS_ITS | Encounter Summary ---
:[address] [facility] Address [address] [place] [address] Care Team Providers Name Role Phone Adriane Patel EMAIL MARKETING ASSISTANT, PAN WASHER Primary Care Provider [phone] Reason for Visit Reason Onset Date Comments Pain when urinating 12/22/2018 Encounter Details Date Type Department Care Team Description 12/22/2018 Telephone [place] Adriane Patel, Pain when urinating [address] EMAIL MARKETING ASSISTANT, PAN WASHER [place], [place] [address] [address] [facility] [address] [phone] [place], [place] [address] Social History Tobacco Use [...] scheduled for appointment tomorrow with Dr. Vazquez. FOREMAN Telephone Encounter - Adriane Patel APRN, CNP - 12/22/2018 10:30 AM SHOP FOREMAN The patient should be evaluated. Suresh Cm FOREMAN Telephone Encounter - Margareth Sanchez RN - 12/22/2018 10:07 AM CST Please advise. FOREMAN Telephone Encounter - Luciana Albarado - 12/22/2018 9:59 AM CST Pt called stating even though her lab work came back negative for a UTI she still has pain with urination. Pt is wondering about a possible kidney stone as mentioned by Suresh Patel, or what her next step should be. Please call Pt at [phone] to advise FOREMAN documented in this encounter Plan of Treatment Not on filedocumented as of this encounter Visit Diagnoses Not on filedocumented in this encounter Care Teams Plumbing Manager Relationship Specialty Start Date End Date Adriane Patel APRN, PAN WASHER PCP - General 09/22/17 07/06/19 100 [facility] [place] [place] [address] documented as of this encounter
--- OUTSIDE RECORDS SUMMARY | 2022-01-21 14:05 | XMS_ITS | Encounter Summary ---
:1945 Author Organization [facility] Address [address] [place] [address] Care Team Providers Name Role Phone Adriane Patel Ronak CONSTRUCTION SUPERINTENDENT, COMBINE DRIVER Primary Care Provider Reason for Visit Reason Comments Diabetes 3 month f/u Encounter Details Date Type Department Care Team Description 03/07/2019 Office Visit SE Endocrinology Bacilio Stewart, Type 2 diabetes mellitus wit h other specified complication, with long-term current use of insulin (HCC) (Primary Dx); [address] [place] [address] MBBS Type 2 diabetes mellitus without complic ation, without long-term current use of insulin (HCC); [place] [address] Essential hypertension; [phone] [place], [place] Stage 3 chroni c kidney disease (HCC); [address] Mixed hyperlipidemia; [phone] Rheumatoid arth ritis, involving unspecified site, unspecified [...] Comments Blood Pressure 128/70 03/07/2019 9:55 AM SENIOR LINUX UNIX ENGINEER Pulse 90 03/07/2019 9:55 AM SENIOR LINUX UNIX ENGINEER Temperature 36.4 ??C (97.6 ??F) 03/07/2019 9:55 AM SENIOR LINUX UNIX ENGINEER Respiratory Rate 18 03/07/2019 9:55 AM SENIOR LINUX UNIX ENGINEER Oxygen Saturation - - Inhaled Oxygen Concentration - - Weight 83.9 kg (185 lb) 03/07/2019 9:55 AM SENIOR LINUX UNIX ENGINEER Height 157.5 cm (5' 2) 03/07/2019 9:55 AM SENIOR LINUX UNIX ENGINEER Body Mass Index 33.84 03/07/2019 9:55 AM SENIOR LINUX UNIX ENGINEER documented in this encounter Patient Instructions Patient [...] up in 3 months, with labs. OR LINUX UNIX ENGINEER documented in this encounter Progress Notes JOSE [...] Last eye exam showed no retinopathy in [place]. Dorsal aspect of toes hurts sometimes. Denies [...] More than three times a week Attends zoroastrianism service: More than 4 times per year [...] coordination of care. Bacilio Stewart MD Staff Piggyback Clerk OR LINUX UNIX ENGINEER Adriane Patel APRN, CNP - 03/07/2019 10:00 AM CST Reviewed. OR LINUX UNIX ENGINEER documented in this encounter Plan of Treatment Not on filedocumented as of this encounter Goals Goal Patient Goal Associated Recent Patient-Stated? Author Type Problems Progress Routine Health General No change No Peter Ramesh (02/05/2021 Abbie Murray, 11:19 AM SENIOR LINUX UNIX ENGINEER) RN Note: Formatting of this note is differe nt from the original. Routine Health Management Care Team Patient Care Team: Corrine Vazquez MD as [facility]CP - [facility] Yossi Potts, RN as Registered Nurse (Diabetes Education) Abbie Ramesh RN as Client Service Representative Future Scheduled Appointments No future appointments. Health Maintenance Health Maintenance Topic Date Due Urine Protein Screening 05/31/2020 Lipid Panel 09/05/2020 Glaucoma Screening 67+ Yr 12/25/2020 Ophthalmology Exam 12/25/2020 [facility] Annual Wellness 01/12/2021 Hemoglobin A1C 01/24/2021 Diabetic Foot Exam 03/16/2021 Colorectal Cancer Screening: Colonoscop y 05/21/2021 Fall Risk Performed 06/05/2021 Mammogram 12/03/2021 COVID-19 Vaccine Completed [facility] Pneumococcal Vaccine: <64 Completed [facility] Pneumococcal Vaccine: 65+ Years Com pleted HPV Vaccines Aged Out Notes: Due: Urine Protein screening Eye exam AWV A1C Lipid panel documented as of this encounter Results Microalbumin/Creatinine Ratio (06/01/2019 8:50 AM CDT) P athologist Signature Microalbumin,m 15.3 0.0 - 16.6 06/01/2019 [facility] g/day mg/L 12:50 PM CDT [facility] Comment: . Creatinine, Urine 148 mg/dL 06/01/2019 12:50 PM CD T [facility] Comment: No established reference range. Microalb/Creat Ratio 10 0 - 24 mg/g 06/01/2019 12: 50 PM CDT [facility] Specimen Anatomical Collection Method Collection Time Receive d Time (Source) Location / / Volume Laterality Urine 06/01/2019 8:50 AM 0 CDT 12:11 PM CDT Bacilio Stewart [facility] LAB URINE ORDERABLES Performing Organization Address City/State/ZIP Code Phon e Number [facility] [address] [place] [address] (ABNORMAL) Basic metabolic panel (06/01/2019 8:48 AM CDT) P athologist Signature Sodium 140 135 - 145 06/01/2019 [facility] [place] mmol/L 10:10 AM CDT [place] Potassium 4.0 3.5 - 5.1 06/01/2019 [facility] [place] mmol/L 10:10 AM CDT [place] Comment: . Chloride 104 98 - 107 mmol/L 06/01/2019 10:10 AM CDT [facility] [place] Comment: . CO2 29 22 - 29 mmol/L 06/01/2019 10:10 AM CDT [facility] [place] Comment: . Creatinine 1.3 (H) 0.4 - 1.2 mg/dL 06/01/2019 10:10 AM CDT [facility] [place] Comment: . BUN 32 (H) 5 - 25 mg/dL 06/01/2019 10:10 AM CDT [facility] [place] Comment: . Glucose 209 (H) 70 - 100 mg/dL 06/01/2019 10:10 AM [facility] C [place] CDT Calcium, Total,S 9.7 8.4 - 10.2 mg/dL 06/01/2019 10:10 AM [facility] [place] CDT Comment: . Fasting? No 06/01/2019 8:48 AM CDT [facility] CAN NON [place] Specimen Anatomical Collection Method Collection Time Receive d Time (Source) Location / / Volume Laterality Blood 06/01/2019 8:48 AM 0 8:48 CDT AM CDT Bacilio SETHI LAB BLOOD ORDERABLES Performing Organization Address City/State/ZIP Code Phon e Number [facility] [place] [address] [place] [address] (ABNORMAL) Hemoglobin A1c (06/01/2019 8:48 AM CDT) Analysis Performed At Patho logist Time Signature Hemoglobin A1C 8.5 (H) 4.0 - 5.6 06/01/2019 [place] % A1C 12:37 PM CDT [facility] [...] [facility] [address] [place] [address] documented in this encounter Visit Diagnoses Diagnosis [...] presence documented in this encounter Care Teams Hall Supervisor Relationship Specialty Start Date End Date Adriane Patel, CONSTRUCTION SUPERINTENDENT, COMBINE DRIVER PCP - General 09/22/17 07/06/19 100 [facility] [place] [address] documented as of this encounter
--- OUTSIDE RECORDS SUMMARY | 2022-01-21 14:05 | XMS_ITS | Encounter Summary ---
:1945 Author Organization [facility] Address [address] [place] [address] Care Team Providers Name Role Phone Adriane Patel Ronak DIRECTOR ELECTRICAL ENGINEERING, VOLLEYBALL COACH Primary Care Provider [phone] Reason for Visit Reason Comments Female Dysuria Encounter Details Date Type Department Care Team Description 12/23/2018 Office Visit [place] Corrine Herrera Frequency of micturition (Pr imary Dx); [address] [place] Raynaud's disease without gangrene [place], [place] [address] [address] [place] [address] Social History Tobacco Use Types Packs/Day Years [...] Comments Blood Pressure 152/82 12/23/2018 9:04 AM ELECTRIC OPERATOR Pulse 72 12/23/2018 9:04 AM ELECTRIC OPERATOR Temperature 36.1 ??C (97 ??F) 12/23/2018 9:04 AM ELECTRIC OPERATOR Respiratory Rate 12 12/23/2018 9:04 AM ELECTRIC OPERATOR Oxygen Saturation - - Inhaled Oxygen Concentration - - Weight 83.2 kg (183 lb 8 oz) 12/23/2018 9:04 AM ELECTRIC OPERATOR Height - - Body Mass Index [...] history of rheumatoid arthritis she sees a hydrology professor once a month for thisfor her infusions and we have asked her to discuss with the hydrology professor the potential that she has Raynaud's which I suspect she does in the treatment for that is usually verapamil and if this is confirmed from the hydrology professor we could certainly start her on the [...] in discussion of the above 2 concerns. TRIC OPERATOR documented in this encounter Miscellaneous Notes Addendum Note - Corrine Herrera MD - 12/23/2018 9:00 AM ELECTRIC OPERATOR Addended by: Corrine HERRERA on: 12/25/2018 10:03 AM Modules accepted: Orders TRIC OPERATOR documented in this encounter Plan of Treatment Not on filedocumented as of this encounter Goals Goal Patient Goal Associated Recent Patient-Stated? Author Type Problems Progress Routine Health General No change No Peter Ramesh (02/05/2021 Abbie Murray, 11:19 AM ELECTRIC OPERATOR) RN Note: Formatting of this note is differe nt from the original. Routine Health Management Care Team Patient Care Team: Corrine Herrera MD as PCP - General ([facility]) Yossi Potts, RN as Registered Nurse (Diabetes Education) Abbie Ramesh RN as Training Specialist Future Scheduled Appointments No future [...] Urine culture (clean catch) (12/23/2018 9:58 AM ELECTRIC OPERATOR) [facility] [employer] Method Time Signature Urine Culture Escherichia coli 12/25/[address] [place] 15,000 cfu/ml 9:15 AM ELECTRIC OPERATOR [facility] [place] [facility] Specimen Anatomical Collection Method Collection Time Receive d Time (Source) Location / / Volume Laterality Urine, Clean 12/23/2018 9:58 AM 9 Catch ELECTRIC OPERATOR 12:18 PM ELECTRIC OPERATOR Narrative [facility] - 10/2018 9:16 AM ELECTRIC OPERATOR Patient does not have an Amoxicillin [...] Number [facility] [address] [place] [address] (ABNORMAL) Urinalysis with reflex microscopic (12/23/2018 9:58 AM ELECTRIC OPERATOR) [facility] Method Time Signature Type CLEAN CATCH 12/23/2018 [facility] 10:24 AM ELECTRIC OPERATOR [place] Color, Urine YELLOW YELLOW 12/23/2018 [facility] 10:24 AM ELECTRIC OPERATOR [place] Clarity, CLEAR CLEAR 12/23/2018 [facility] Urine 10:24 AM ELECTRIC OPERATOR [place] Glucose, NEGATIVE NEGATIVE 12/23/2018 [facility] Urine mg/dL 10:24 AM ELECTRIC OPERATOR [place] Bilirubin, NEGATIVE NEGATIVE 12/23/2018 [facility] Urine 10:24 AM ELECTRIC OPERATOR [place] Ketones, NEGATIVE NEGATIVE 12/23/2018 [facility] Urine mg/dL 10:24 AM ELECTRIC OPERATOR [place] Specific 1.020 1.000 12/23/2018 [facility] [place], ->=1.030 10:24 AM ELECTRIC OPERATOR [place] Urine Blood, Urine NEGATIVE NEGATIVE 12/23/2018 [facility] 10:24 AM ELECTRIC OPERATOR [place] pH, Urine 5.5 5.0 - 7.0 12/23/2018 [facility] 10:24 AM ELECTRIC OPERATOR [place] Protein, NEGATIVE NEGATIVE-TRA 12/23/2018 [facility] Urine CE mg/dL 10:24 AM ELECTRIC OPERATOR [place] Urobilinogen, 0.2 0.2 - 1.0 12/23/2018 [facility] Urine E.U./dL 10:24 AM ELECTRIC OPERATOR [place] Nitrite, NEGATIVE NEGATIVE 12/23/2018 [facility] Urine 10:24 AM ELECTRIC OPERATOR [place] Leukocytes, TRACE (A) NEGATIVE 12/23/2018 [facility] Urine 10:24 AM ELECTRIC OPERATOR [place] Specimen Anatomical Collection Method Collection Time Receive d Time (Source) Location / / Volume Laterality Urine (Urine, 12/23/2018 9:58 AM 12/24/19 19 9:58 Clean Catch) ELECTRIC OPERATOR AM ELECTRIC OPERATOR Corrine Herrera MD LAB URINE ORDERABLES Performing Organization Address City/State/ZIP Code Phon e Number [facility] [place] [address] [place] [address] documented in this encounter Visit Diagnoses Diagnosis Frequency of micturition - Primary Urinary frequency Raynaud's disease without gangrene Frequency of micturition Urinary frequency documented in this encounter Care Teams Director Strategy Relationship Specialty Start Date End Date Adriane Patel, DIRECTOR ELECTRICAL ENGINEERING, VOLLEYBALL COACH PCP - General 09/22/17 07/06/19 [address] [place] [address] documented as of this encounter
--- OUTSIDE RECORDS SUMMARY | 2022-01-21 14:05 | XMS_ITS | Encounter Summary ---
:[address] [facility] Address [address] [place] [address] Care Team Providers Name Role Phone Adriane Patel BEEF GRINDER, EVENT MARKETING INTERN Primary Care Provider [phone] Reason for Visit Reason Onset Date Comments UTI 12/07/2018 Encounter Details Date Type Department Care Team Description 12/07/2018 Telephone [place] Adriane Patel, UTI [address] BEEF GRINDER, EVENT MARKETING INTERN [place], [place] [address] [address] [facility] [address] [phone] [place], [place] [address] Social History Tobacco Use [...] and past antibiotic. Please call her at [phone]. documented in this encounter Plan of Treatment Not on filedocumented as of this encounter Visit Diagnoses Not on filedocumented in this encounter Care Teams Camp Assistant Relationship Specialty Start Date End Date Adriane Patel APRN, EVENT MARKETING INTERN PCP - General 09/22/17 07/06/19 100 [facility] [place] [address] documented as of this encounter
--- OUTSIDE RECORDS SUMMARY | 2022-01-21 14:05 | XMS_ITS | Encounter Summary ---
:1945 Author Organization [facility] Address [address] [place] [address] Care Team Providers Name Role Phone Jorge Adriane Simons WINK CUTTER OPERATOR, SPORTS PHYSIOLOGIST Primary Care Provider [phone] Encounter Details Date Type Department Care Team Description 12/23/2018 [facility] Frequency of micturition [address] [place], [place] [address] Social History Tobacco Use [...] Peter Ramesh (02/05/2021 Abbie Murray, 11:19 AM PULMONOLOGY TECHNICIAN) RN Note: Formatting of this note is differe nt from the original. Routine Health Management Care Team Patient Care Team: Corrine Vazquez MD as PCP - [facility] Yossi Potts, RN as Registered Nurse (Diabetes Education) Abbie Ramesh, RN as Advertising Consultant Future Scheduled Appointments No future appointments. [...] R esults for this IC EXAM (REFLEXED) PULMONOLOGY TECHNICIAN micturition procedure are in the results section. URINALYSIS WITH Routine 12/23/2018 9:58 AM Frequency of Result s for this REFLEX MICROSCOPIC PULMONOLOGY TECHNICIAN micturition procedure are in the results section. URINE CULTURE Routine 12/23/2018 9:58 AM Frequency of Results for this PULMONOLOGY TECHNICIAN micturition procedure are i n the results section. documented in this encounter Results Urinalysis-Microscopic Exam (12/23/2018 9:58 AM PULMONOLOGY TECHNICIAN) [facility] Method Time Signature Casts, urine NONE SEEN 0-2 Hyaline 12/24/2018 [facility] /lpf 12:59 PM [facility] Significant NONE SEEN None Seen 12/24/2018 [facility] casts, urine /lpf 12:59 PM [facility] RBC, Urine NONE SEEN 0 - 3 /hpf 12/24/2018 [facility] 12:59 PM [facility] WBC, Urine 4-10 /hpf 12/24/2018 [facility] 12:59 PM [facility] Comment: Male Ref Range ? 0-3/hpf Female Ref Range ?? 0-10/hpf WBC Clumps Present. Squamous Epithelial, FEW Few /lpf 12/24/2018 12:59 PM [facility] Urine [facility] Trans Epithelial, NONE SEEN 0 - 3 /hpf 12/24/2018 12:59 PM O [facility] Urine [facility] Renal Tubular Cells, NONE SEEN 0 - 1 /hpf 12/24/2018 12:59 P M [facility] Urine [facility] Bacteria, Urine NONE SEEN None Seen 12/24/2018 12:59 PM [facility] LABORATORY Specimen Anatomical Collection Method Collection Time Receive d Time (Source) Location / / Volume Laterality 12/23/2018 9:58 AM 9 PULMONOLOGY TECHNICIAN 12:18 PM PULMONOLOGY TECHNICIAN Corrine Vazquez MD LAB URINE ORDERABLES Performing Organization Address City/State/ZIP Code Phon e Number [facility] [address] [place] [address] (ABNORMAL) Urine culture (clean catch) (12/23/2018 9:58 AM PULMONOLOGY TECHNICIAN) [facility] gist Method Time Signature Urine Culture Escherichia coli 12/25/2018 [place] 15,000 cfu/ml 9:15 AM PULMONOLOGY TECHNICIAN [facility] ([facility] [place] [facility] Specimen Anatomical Collection Method Collection Time Receive d Time (Source) Location / / Volume Laterality Urine, Clean 12/23/2018 9:58 AM 9 Catch PULMONOLOGY TECHNICIAN 12:18 PM PULMONOLOGY TECHNICIAN Narrative [facility] - 10/2018 9:16 AM PULMONOLOGY TECHNICIAN Patient does not have an Amoxicillin [...] [facility] [address] [place] [address] (ABNORMAL) Urinalysis with reflex microscopic (12/23/2018 9:58 AM PULMONOLOGY TECHNICIAN) [facility] Method Time Signature Type CLEAN CATCH 12/23/2018 [facility] 10:24 AM PULMONOLOGY TECHNICIAN [place] Color, Urine YELLOW YELLOW 12/23/2018 [facility] 10:24 AM PULMONOLOGY TECHNICIAN [place] Clarity, CLEAR CLEAR 12/23/2018 [facility] Urine 10:24 AM PULMONOLOGY TECHNICIAN [place] Glucose, NEGATIVE NEGATIVE 12/23/2018 [facility] Urine mg/dL 10:24 AM PULMONOLOGY TECHNICIAN [place] Bilirubin, NEGATIVE NEGATIVE 12/23/2018 [facility] Urine 10:24 AM PULMONOLOGY TECHNICIAN [place] Ketones, NEGATIVE NEGATIVE 12/23/2018 [facility] Urine mg/dL 10:24 AM PULMONOLOGY TECHNICIAN [place] Specific 1.020 1.000 12/23/2018 [facility] [place], ->=1.030 10:24 AM PULMONOLOGY TECHNICIAN [place] Urine Blood, Urine NEGATIVE NEGATIVE 12/23/2018 [facility] 10:24 AM PULMONOLOGY TECHNICIAN [place] pH, Urine 5.5 5.0 - 7.0 12/23/2018 [facility] 10:24 AM PULMONOLOGY TECHNICIAN [place] Protein, NEGATIVE NEGATIVE-TRA 12/23/2018 [facility] Urine CE mg/dL 10:24 AM PULMONOLOGY TECHNICIAN [place] Urobilinogen, 0.2 0.2 - 1.0 12/23/2018 [facility] Urine E.U./dL 10:24 AM PULMONOLOGY TECHNICIAN [place] Nitrite, NEGATIVE NEGATIVE 12/23/2018 [facility] Urine 10:24 AM PULMONOLOGY TECHNICIAN [place] Leukocytes, TRACE (A) NEGATIVE 12/23/2018 [facility] Urine 10:24 AM PULMONOLOGY TECHNICIAN [place] Specimen Anatomical Collection Method Collection Time Receive d Time (Source) Location / / Volume Laterality Urine (Urine, 12/23/2018 9:58 AM 12/24/19 19 9:58 Clean Catch) PULMONOLOGY TECHNICIAN AM PULMONOLOGY TECHNICIAN Corrine Vazquez MD LAB URINE ORDERABLES Performing Organization Address City/State/ZIP Code Phon e Number [facility] [place] [address] [place] [address] documented in this encounter Visit Diagnoses Diagnosis Frequency of micturition Urinary frequency documented in this encounter Care Teams Bufferer Relationship Specialty Start Date End Date Adriane Patel APRN, SPORTS PHYSIOLOGIST PCP - General 09/22/17 07/06/19 100 [facility] [place] [address] documented as of this encounter
--- OUTSIDE RECORDS SUMMARY | 2022-01-21 14:05 | XMS_ITS | Encounter Summary ---
:1945 Author Organization [facility] Address [address] [place] [address] Care Team Providers Name Role Phone Adriane Patel APRN, WASHHOUSE WORKER Primary Care Provider [phone] Reason for Visit Reason Comments Nasal Congestion Cough Encounter Details Date Type Department Care Team Description 11/23/2018 Office Visit [place] Carl Stinson MD Acute non-recurrent sinusiti s, unspecified location (Primary Dx); [address] Adriane Patel, DESIGN CONSULTANT, WASHHOUSE WORKER [address] [place] [address] Conjunctivitis of both eyes, [place] [address] Social History Tobacco Use Types Packs/Day Years [...] each, Rfl: 3 ??? ACCU-CHEK FASTCLIX LANCETS [facility], Check blood glucose 4 times a day, [...] hours while awake. The patient willcontact her bingo caller, to determine if they will continue the [...] type documented in this encounter Care Teams Telehealth Coordinator Relationship Specialty Start Date End Date Adriane Patel APRN, WASHHOUSE WORKER PCP - General 09/22/17 07/06/19 100 [place] [address] documented as of this encounter
--- OUTSIDE RECORDS SUMMARY | 2022-01-21 14:05 | XMS_ITS | Encounter Summary ---
:[address] [facility] Address [address] [place] [address] Care Team Providers Name Role Phone Adriane Patel Ronak LIBRARY SCIENCE INSTRUCTOR, LINUX NETWORK ENGINEER Primary Care Provider [phone] Reason for Visit Reason Comments Sinusitis Conjunctivitis returned after stopping anti biotics Encounter Details Date Type Department Care Team Description 12/01/2018 Office Visit [place] Corrine Vazquez Acute conjunctivitis of [address] [place] both eyes, unspecified [place], [place] [address] acute conju nctivitis type [id number] [place] (Primary Dx) [phone] [place] [address] Social History Tobacco Use Types Packs/Day Years [...] gets an infusion of Orencia via her hyperbaric technologist secondary to rheumatoid arthritis. She has been [...] Primary documented in this encounter Care Teams Piece Work Checker Relationship Specialty Start Date End Date Adriane Patel, LIBRARY SCIENCE INSTRUCTOR, LINUX NETWORK ENGINEER PCP - General 09/22/17 07/06/19 [address] [place] [address] documented as of this encounter
--- OUTSIDE RECORDS SUMMARY | 2022-01-21 14:05 | XMS_ITS | Encounter Summary ---
:1945 Author Organization [facility] Address [address] [place] [address] Care Team Providers Name Role Phone Adriane Patel Ronak WORKFORCE DEVELOPMENT PROGRAM DIRECTOR, COMMERCIAL LINES ACCOUNT EXECUTIVE Primary Care Provider [phone] Reason for Visit Reason Comments Immunizations FLU Encounter Details Date Type Department Care Team Description 01/17/2019 Immunization [place] Immunization due (Primary [address] Dx) [place], [place] [address] Social History Tobacco Use [...] with patient prior to administration. VIS given. INSTALLER documented in this encounter Plan of Treatment Not on filedocumented as of this encounter Goals Goal Patient Goal Associated Recent Patient-Stated? Author Type Problems Progress Routine Health General No change No Peter Ramesh (02/05/2021 Abbie Murray, 11:19 AM SLAB INSTALLER) RN Note: Formatting of this note is differe nt from the original. Routine Health Management Care Team Patient Care Team: Corrine Vazquez MD as PCP - General ([facility] Medicine) Yossi Potts, RN as Registered Nurse (Diabetes Education) Abbie Ramesh, ERA as Commercial Technician Future Scheduled Appointments No future appointments. [...] Primary documented in this encounter Care Teams Dye Maker Relationship Specialty Start Date End Date Adriane Patel, WORKFORCE DEVELOPMENT PROGRAM DIRECTOR, COMMERCIAL LINES ACCOUNT EXECUTIVE PCP - General 09/22/17 07/06/[address] [place], [place] [address] [place] [address] documented as of this encounter
--- OUTSIDE RECORDS SUMMARY | 2022-01-21 14:05 | XMS_ITS | Encounter Summary ---
:1945 Author Organization [facility] Address [address] [place] [address] Care Team Providers Name Role Phone Adriane Patel Ronak AIR ANALYSIS ENGINEERING TECHNICIAN, STEAMER TENDER Primary Care Provider [phone] Reason for Visit Reason Comments Eye Problem blurry vision Encounter Details Date Type Department Care Team Description 12/16/2018 Office Visit [place] Carl Stinson, Vision loss (Primary [address] [place] Dx) [place], [place] [address] Social History Tobacco Use [...] without improvement. She has been seen by artist model and examination was essentially negative.She however is [...] 12/16/2018), Disp: 3.5 g, Rfl: 0 ??? neopisqk-ejtouenpd-ttngbdmwygvmx (MAXITROL) 3.5-24938-5.1 ophthalmic suspension, Administer 1 drop into affected [...] dilated from her recent exam by the artist model Assessment 1. Persistent eye drainage with reported vision loss. 2. Immunosuppressant. Plan 1. I am concerned about her complaints about decreased vision. She has spoken to her power hammer operator and the power hammer operator had recommended that she see MD. I discussed this with her and felt that the MD she needs to see as an seafood packer. She is in agreement and I set her up with appointment Dr. Gee ramirez in [place] for tomorrow. 2. When it settles down she will get her flu shot. documented in this encounter Plan of Treatment Not on filedocumented as of this encounter Visit Diagnoses Diagnosis Vision loss - Primary Unspecified visual loss documented in this encounter Care Teams Art Gallery Internship Relationship Specialty Start Date End Date Adriane Patel APRN, STEAMER TENDER PCP - General 09/22/17 07/06/19 100 [place] [address] documented as of this encounter
--- OUTSIDE RECORDS SUMMARY | 2022-01-21 14:05 | XMS_ITS | Encounter Summary ---
:1945 Author Organization [facility] Address [address] [place] [address] Care Team Providers Name Role Phone Adriane Patel Ronak COBBLER APPRENTICE, DOCUMENT CONTROL CLERK Primary Care Provider [phone] Reason for Visit Reason Onset Date Comments Med Refill 02/24/2019 Encounter Details Date Type Department Care Team Description 02/24/2019 Refill SE Endocrinology Bacilio Stewart, Type 2 diabetes mellitus [address] [facility] [place] [address] [address] [facility] complication, without [phone] [place] [address] insulin ([facility]) Social History Tobacco Use Types Packs/Day Years [...] Rx pended and forwarded to Dr Stewart. ONAL MARKETING MANAGER documented in this encounter Plan of Treatment Not on filedocumented as of this encounter Goals Goal Patient Goal Associated Recent Patient-Stated? Author Type Problems Progress Routine Health General No change No Peter Ramesh (02/05/2021 Abbie Murray, 11:19 AM REGIONAL MARKETING MANAGER) RN Note: Formatting of this note is differe nt from the original. Routine Health Management Care Team Patient Care Team: Corrine Vazquez MD as PCP - General ([facility] Medicine) Yossi Potts, RN as Registered Nurse (Diabetes Education) Abbie Ramesh RN as Adjunct Professor Of [place] History Future Scheduled Appointments No future appointments. Health [...] documented in this encounter Care Teams Senior Ssis Developer Relationship Specialty Start Date End Date Adriane Patel, COBBLER APPRENTICE, DOCUMENT CONTROL CLERK PCP - General 09/22/17 07/06/19 [address] [place] [address] documented as of this encounter
--- OUTSIDE RECORDS SUMMARY | 2022-01-21 14:05 | XMS_ITS | Encounter Summary ---
:1945 Author Organization [facility] Address [address] [place] [address] Care Team Providers Name Role Phone Jorge Adriane Simons LANDSCAPE NURSERYMAN, STUNT MAN Primary Care Provider [phone] Encounter Details Date Type Department Care Team Description 12/07/2018 Lab [place] Urinary tract infection [address] without hematuria, site [place], [place] [address] unspecified [phone] Social History Tobacco Use Types Packs/Day Years [...] (ABNORMAL) Urinalysis-Microscopic Exam (12/07/2018 2:55 PM CDT) [facility] Method Time Signature Casts, urine NONE SEEN 0-2 Hyaline 12/08/2018 [place] /lpf 1:03 PM [facility] Significant NONE SEEN None Seen 12/08/2018 [place] casts, urine /lpf 1:03 PM [facility] RBC, Urine 4-10 (A) 0 - 3 /hpf 12/08/2018 [place] 1:03 PM [facility] WBC, Urine 0-3 /hpf 12/08/2018 [place] 1:03 PM [facility] Comment: Male Ref Range ? 0-3/hpf Female Ref Range ?? 0-10/hpf Squamous Epithelial, 1+ (A) Few /lpf 12/08/2018 1:03 PM [facility] Urine [facility] Trans Epithelial, NONE SEEN 0 - 3 /hpf 12/08/2018 1:03 PM [facility] Urine [facility] Renal Tubular Cells, NONE SEEN 0 - 1 /hpf 12/08/2018 1:03 PM [facility] Bacteria, Urine FEW None Seen 12/08/2018 1:03 PM [facility]ENTER LAB[facility]ORY Specimen Anatomical Collection Method Collection Time Receive d Time (Source) Location / / Volume Laterality 12/07/2018 2:55 PM 9 CDT 12:21 PM CDT Adriane Patel APRN, LEONARD LAB URINE ORDERABLES Performing Organization Address City/State/ZIP Code Phon e Number [facility] [address] [place] [address] Urine culture (clean catch) (12/07/2018 2:55 PM CDT) [facility] Method Time Signature Urine Culture <10,000 12/08/2018 [facility] cfu/ml No 12:56 PM [facility] further ID. LABORATORY Specimen Anatomical Collection Method Collection Time Receive d Time (Source) Location / / Volume Laterality Urine, Clean 12/07/2018 2:55 PM 9 Catch CDT 12:21 PM CDT Narrative [facility] - 11/17 12:56 PM CDT Patient does not have an Amoxicillin or PCN allergy Adriane Patel APRN, STUNT MAN LAB MICROBIOLOGY - GENERA L ORDERABLES Performing Organization Address City/State/ZIP Code Phon e Number [facility] [address] [place] [address] (ABNORMAL) Urinalysis with reflex microscopic (clean catch) (12/07/2018 2:55 PM CDT) [facility] Method Time Signature Type CLEAN [...] [place] Specific 1.020 1.000 12/08/2018 [facility] [place], ->=1.030 9:29 AM CDT [place] Urine Blood, Urine MODERATE (A) NEGATIVE 12/08/2018 [facility] 9:29 AM CDT [place] pH, Urine 5.5 5.0 - 7.0 12/08/2018 [facility] 9:29 AM CDT [place] Protein, 30 (A) NEGATIVE-TRA 12/08/2018 [facility] Urine CE mg/dL 9:29 AM CDT [place] Urobilinogen, 0.2 0.2 - 1.0 12/08/2018 [facility] Urine E.U./dL 9:29 AM CDT [place] Nitrite, NEGATIVE NEGATIVE 12/08/2018 [facility] Urine 9:29 AM CDT [place] Leukocytes, TRACE (A) NEGATIVE 12/08/2018 [facility] [place] Urine 9:29 AM CDT [place] Specimen Anatomical Collection Method Collection Time Receive d Time (Source) Location / / Volume Laterality Urine (Urine, 12/07/2018 2:55 PM 12/08/19 19 2:56 Clean Catch) CDT PM CDT Adriane Patel APRN, STUNT MAN LAB URINE ORDERABLES Performing Organization Address City/State/ZIP Code Phon e Number [facility] [place] [address] [place] [address] documented in this encounter Visit Diagnoses Diagnosis Urinary tract infection without hematuri a, site unspecified documented in this encounter Care Teams Bolt Maker Relationship Specialty Start Date End Date Adriane Patel APRN, STUNT MAN PCP - General 09/22/17 07/06/19 100 [facility] [place] [address] documented as of this encounter
--- OUTSIDE RECORDS SUMMARY | 2022-01-21 14:05 | XMS_ITS | Encounter Summary ---
:1945 Author Organization [facility] Address [address] [place] [address] Care Team Providers Name Role Phone Adriane Patel Ronak RUDDN, LOSS PREVENTION OFFICER Primary Care Provider [phone] Encounter Details Date Type Department Care Team Description 01/05/2019 Patient Outreach SE Care Coordination Abbie Ramesh, [address] [place] [address] [place] [address] [place] [address] Social History Tobacco Use Types [...] 1. Blood sugar numbers 2. Bladder infection CTOR OF CASEWORK documented in this encounter Plan of Treatment Not on filedocumented as of this encounter Goals Goal Patient Goal Associated Recent Patient-Stated? Author Type Problems Progress Routine Health General No change No Peter Ramesh (02/05/2021 Abbie Murray, 11:19 AM DIRECTOR OF CASEWORK) RN Note: Formatting of this note is differe nt from the original. Routine Health Management Care Team Patient Care Team: Corrine Vazquez MD as PCP - General ([facility] Medicine) Yossi Potts, RN as Registered Nurse (Diabetes Education) Abbie Ramesh, RN as Sprinkling System Irrigator Future Scheduled Appointments No future appointments. Health [...] on filedocumented in this encounter Care Teams It Program Manager Relationship Specialty Start Date End Date Adriane Patel, PATTERN PUNCHER, LOSS PREVENTION OFFICER PCP - General 09/22/17 07/06/19 100 [place] [address] documented as of this encounter
--- OUTSIDE RECORDS SUMMARY | 2022-01-21 14:05 | XMS_ITS | Encounter Summary ---
:1945 Author Organization [facility] Address [address] [place] [address] Care Team Providers Name Role Phone Adriane Patel Ronak RUDDN, RETAIL LOAN OFFICER Primary Care Provider [phone] Encounter Details Date Type Department Care Team Description 12/02/2018 Telephone Endocrinology Bacilio Stewart MBBS [address] [place] [address] [place] [address] [phone] (Wo rk) Social History Tobacco Use Types [...] on filedocumented in this encounter Care Teams Saw Filer Relationship Specialty Start Date End Date Adriane Patel APRN, RETAIL LOAN OFFICER PCP - General 09/22/17 07/06/[address] [place] [address] [place] [address] documented as of this encounter
--- OUTSIDE RECORDS SUMMARY | 2022-01-21 14:05 | XMS_ITS | Encounter Summary ---
:1945 Author Organization [facility] Address [address] [place] [address] Care Team Providers Name Role Phone Adriane Patel ASSOCIATE PROGRAMMER ANALYST, ENGINEERING PSYCHOLOGIST Primary Care Provider [phone] Reason for Visit Reason Onset Date Comments Med reaction 12/08/2018 Encounter Details Date Type Department Care Team Description 12/08/2018 Telephone [place] Adirane Patel, Med reaction [address] ASSOCIATE PROGRAMMER ANALYST, ENGINEERING PSYCHOLOGIST [place], [place] [address] [address] [facility] [address] [phone] [place], [place] [address] Social History Tobacco Use [...] Notes Telephone Encounter - Adriane Patel APRN, ENGINEERING PSYCHOLOGIST - 12/08/2018 1:48 PM CDT Called the [...] was prescribed yesterday. Please call Pt at [phone] to advise. documented in this encounter Plan of Treatment Not on filedocumented as of this encounter Visit Diagnoses Not on filedocumented in this encounter Care Teams Last Greaser Relationship Specialty Start Date End Date Adriane Patel APRN, CNP PCP - General 09/22/17 07/06/[address] [place] [address] [place] [address] documented as of this encounter
--- OUTSIDE RECORDS SUMMARY | 2022-01-21 14:05 | XMS_ITS | Encounter Summary ---
:1945 Author Organization [facility] Address [address] [place] [address] Care Team Providers Name Role Phone Adriane Patel ANTISQUEAK FILLER, DRESSING ROOM ATTENDANT Primary Care Provider [phone] Reason for Visit Reason Onset Date Comments [place] [facility] 12/09/2018 Encounter Details Date Type Department Care Team Description 12/09/2018 Telephone [place] Adriane Patel, [place] [facility] [address] ANTISQUEAK FILLER, DRESSING ROOM ATTENDANT [place], [place] [address] [address] [phone] [place], [place] [address] Social History Tobacco Use [...] red and gunky. Please call Pt at [phone] to advise. documented in this encounter Plan of Treatment Not on filedocumented as of this encounter Visit Diagnoses Diagnosis Conjunctivitis of both eyes, unspecified conjunctivitis type - Primary documented in this encounter Care Teams Correspondence Section Supervisor Relationship Specialty Start Date End Date Adriane Patel APRN, LEONARD PCP - General 09/22/17 07/06/19 [address] [facility] [place] [address] documented as of this encounter
--- OUTSIDE RECORDS SUMMARY | 2022-01-21 14:05 | XMS_ITS | Encounter Summary ---
:1945 Author Organization [facility] Address [address] [place] [address] Care Team Providers Name Role Phone Adriane Patel Ronak DIRECTOR SURFACE TRANSPORTATION, FLOAT PHLEBOTOMIST Primary Care Provider [phone] Reason for Visit Consultation (Routine) - Closed Specialty Diagnoses / Procedures Referred By Contact Refer red To Contact Diagnoses Medicare annual wellness visit, initial Corrine Vazquez MD Care Coordination [address] 5 [phone] Referral ID Status Reason Start Date Expiration Date Visits V isits Requested Authorized [id number] Closed Specialty 12/23/2018 99 99 Services Required Encounter Details Date Type Department Care Team Description 01/24/2019 Patient Outreach SE Care Coordination Corrine Vazquez MD [address] [place] [address] Counseling and coordination of care (Terrie salcedo Dx); [address] [place] [address] Abbie Ramesh RN [address] [place] [address] Type 2 diabetes mellitus with other spec ified complication, with long-term current use of insulin ([facility]) [place] [address] Social History Tobacco Use Types [...] Coordination Discussion Date: 01/24/2019 3:42 PM Completed [facility] monthly follow up with Mracial Medication reviewed. She continues to work towards [...] 03/07/2019 9:00 AM JOSE DE JESUS [facility] Result Component ? ? Hemoglobin A1c < 7.0 8.0 8.7 8.5 8.5 9.0 Patient will work towards decreasing A1c to 7 within 6 months (June 2019) a.) Patient will check A1C every three months (Should be less than 7.0) b.) Patient will check blood glucose 2 times daily and report to care worker weekly c.) Patient will take medication as prescribed d.) Patient will exercise for 5 minutes 2 days per week e.) Patient will maintain a food diary f.) Patient will weigh daily and record g.) Patient will follow up with Endocrine Dr Stewart h.) Patient will schedule a foot exam: done i.) Patient will schedule an eye exam: done L ARMS REPAIRER documented in this encounter Plan of Treatment Scheduled Referrals Name Type Priority Associated Order Schedule Diagnoses Ambulatory referral Outpatient Referral Routine Medicare corie rodgers Ordered: to Care Coordination wellness visit, 08/2018 initial documented as of this encounter Goals Goal Patient Goal Associated Recent Patient-Stated? Author Type Problems Progress Routine Health General No change No Domitila Management (02/05/2021 Abbie Murray, 11:19 AM SMALL ARMS REPAIRER) RN Note: Formatting of this note is differe nt from the original. Routine Health Management Care Team Patient Care Team: Corrine Vazquez MD as PCP - General ([facility] Medicine) Yossi Potts, RN as Registered Nurse (Diabetes Education) Abbie Ramesh RN as Head Of Drama Future Scheduled Appointments No future appointments. Health [...] (HCC) documented in this encounter Care Teams Denture Finisher Relationship Specialty Start Date End Date Adriane Patel, DIRECTOR SURFACE TRANSPORTATION, FLOAT PHLEBOTOMIST PCP - General 09/22/17 07/06/19 100 [facility] [place] [address] documented as of this encounter
--- OUTSIDE RECORDS SUMMARY | 2022-01-21 14:05 | XMS_ITS | Encounter Summary ---
:1945 Author Organization [facility] Address [address] [place] [address] Care Team Providers Name Role Phone Adriane Patel Ronak LICENSING AND REGISTRATION DIRECTOR, PARI MUTUEL TICKET SELLER Primary Care Provider [phone] Encounter Details Date Type Department Care Team Description 12/24/2018 Orders Only [place] Corrine Vazquez MD [address] [facility] [address] [place], [place] [address] [place], [place] [phone] (Wo rk) Social History Tobacco Use Types [...] Ramesh (02/05/2021 Abbie Murray, 11:19 AM SENIOR SQL SERVER DBA) RN Note: Formatting of this note is differe nt from the original. Routine Health Management Care Team Patient Care Team: Corrine Vazquez MD as PCP - [facility] ([facility]) Yossi Potts, RN as Registered Nurse (Diabetes Education) Abbie Ramesh RN as Doctorate Of Chiropractic Future Scheduled Appointments No future appointments. Health [...] on filedocumented in this encounter Care Teams Patient Relations Specialist Relationship Specialty Start Date End Date Adriane Patel, LICENSING AND REGISTRATION DIRECTOR, PARI MUTUEL TICKET SELLER PCP - General 09/22/17 07/06/19 100 [place] [address] documented as of this encounter
--- OUTSIDE RECORDS SUMMARY | 2022-01-21 14:06 | XMS_ITS | Encounter Summary ---
:1945 Author Organization [facility] Address [address] [place] [address] Care Team Providers Name Role Phone Adriane Patel Ronak MEDICAL CODING SPECIALIST, WELDING LEAD BURNER Primary Care Provider [phone] Reason for Visit Reason Comments Diabetes Encounter Details Date Type Department Care Team Description 08/27/2018 Office Visit SE Endocrinology Bacilio Stewart, Type 2 diabetes mellitus wit h other specified complication, unspecified whether jail insulin use (HCC) (Primary Dx); [address] [place] [address] MBBS Hyperlipidemia, unspecified hyperlipidem ia type; [place] [address] [place] [address] Essential hypertension; [phone] [place], [place] Stage 3 chroni c kidney disease ([facility]) [address] Social History Tobacco Use Types Packs/Day Years [...] to start basal insulin after lastvisit. Our clinical educator, Denny Potts, has been regularly in [...] Last eye exam showed no retinopathy in [place]. Denies any numbness or tingling sensation. No [...] file Gets together: Not on file Attends druze service: Not on file Active member of [...] with the plan. Bacilio Stewart MD Staff Budget And Policy Analyst Adriane Patel APRN, LEONARD - 08/27/2018 9:30 AM CDT Reviewed. documented in this encounter Plan of Treatment Not on filedocumented as of this encounter Results (ABNORMAL) Hemoglobin A1c (10/29/2018 11:40 AM CDT) [facility] Time Signature Hemoglobin A1C 8.0 (H) 4.0 - 5.6 10/29/2018 [place] % A1C 7:20 PM CDT MEDICAL CENTER [...] Number [facility] [address] [place] [address] documented in this encounter Visit Diagnoses Diagnosis Type 2 diabetes mellitus with other spec ified complication, unspecified whether jail insulin use (HCC) - Primary Hyperlipidemia, unspecified hyperlipidem ia type Essential hypertension Unspecified essential hypertension Stage 3 chronic kidney disease (HCC) documented in this encounter Care Teams Inventory Administrator Relationship Specialty Start Date End Date Adriane Patel, MEDICAL CODING SPECIALIST, WELDING LEAD BURNER PCP - General 09/22/17 07/06/19 100 [place] [address] documented as of this encounter
--- OUTSIDE RECORDS SUMMARY | 2022-01-21 14:06 | XMS_ITS | Encounter Summary ---
:[address] [facility] Address [address] [place] [address] Care Team Providers Name Role Phone Adriane Patel Ronak FISHING VESSEL DECKHAND, YARD ASSISTANT Primary Care Provider [phone] Reason for Visit Reason Onset Date Comments Med Refill 10/21/2018 Encounter Details Date Type Department Care Team Description 10/21/2018 Refill SE Endocrinology Bacilio Stewart, Type 2 diabetes mellitus [address] [facility] [place] [address] [address] [facility] complication, without [phone] [place] [address] insulin ([facility]) Social History Tobacco Use Types Packs/Day Years [...] (HCC) documented in this encounter Care Teams General Merchandise Salesperson Relationship Specialty Start Date End Date Adriane Patel APRN, YARD ASSISTANT PCP - General 09/22/17 07/06/19 100 [facility] [place] [address] documented as of this encounter
--- OUTSIDE RECORDS SUMMARY | 2022-01-21 14:06 | XMS_ITS | Encounter Summary ---
:1945 Author Organization [facility] Address [address] [place] [address] Care Team Providers Name Role Phone Adriane Patel GRAIN OPERATIONS MANAGER, TRAFFIC AGENT Primary Care Provider [phone] Reason for Visit Reason Onset Date Comments Requesting results and referral 07/05/2018 Encounter Details Date Type Department Care Team Description 07/05/2018 Telephone Wall Adriane Patel, Requesting results and [address] GRAIN OPERATIONS MANAGER, TRAFFIC AGENT referral [place], [place] [address] [address] [facility] [address] [phone] [place], [place] [address] Social History Tobacco Use [...] this encounter Miscellaneous Notes Telephone Encounter - Adrianemartinez Patel APRN, CNP - 07/05/2018 2:14 PM CDT This referral has been completed. Telephone Encounter - Lana Knight LPN - 07/05/2018 1:44 PM CDT She would like a second opinion on the HbgA1c. She feels that she has been high for sometime. She wants to talk with the special. She would like to see [facility] endocrinology. Telephone Encounter - Adriane Patel APRN, [...] areferral to alia Alfaro in endocrinology at [facility]. Pt gave a fax number for the referral of [phone]. Call Pt to advise. documented in this encounter Plan of Treatment Not on filedocumented as of this encounter Visit Diagnoses Not on filedocumented in this encounter Care Teams Research Program Coordinator Relationship Specialty Start Date End Date Adriane Patel APRN, LEONARD PCP - General 09/22/17 07/06/[address] [place] [address] [place] [address] documented as of this encounter
--- OUTSIDE RECORDS SUMMARY | 2022-01-21 14:06 | XMS_ITS | Encounter Summary ---
:1945 Author Organization [facility] Address [address] [place] [address] Care Team Providers Name Role Phone Adriane Patel Ronak BUILDING INSPECTOR, SEGMENTAL PAVING SUPERVISOR Primary Care Provider [phone] Encounter Details Date Type Department Care Team Description 07/16/2018 Orders Only SE Endocrinology Bacilio Stewart, Type [address] [place] [address] specified complication, [place], [place] without long-t erm [address] current use of insulin [phone] ([facility]) (Primary Dx) (Work) Social History Tobacco Use [...] Primary documented in this encounter Care Teams Fund Director Relationship Specialty Start Date End Date Adriane Patel, BUILDING INSPECTOR, SEGMENTAL PAVING SUPERVISOR PCP - General 09/22/17 07/06/[address] [place] [address] documented as of this encounter
--- OUTSIDE RECORDS SUMMARY | 2022-01-21 14:06 | XMS_ITS | Encounter Summary ---
:1945 Author Organization [facility] Address [address] [place] [address] Care Team Providers Name Role Phone Adriane Patel APRN, LOADING MACHINE OPERATOR HELPER Primary Care Provider [phone] Reason for Visit Reason Comments Diabetes Consultation (Routine) - Closed Specialty Diagnoses / Procedures Referred By Contact Refer red To Contact Endocrinology Diagnoses Type 2 diabetes mellitus with hyperglycemia, without long-term current use of insulin (HCC) Adriane Patel, MAL, LOADING MACHINE OPERATOR HELPER [address] [place] [address] Referral ID Status Reason Start Date Expiration Date Visits V isits Requested Authorized [id number] Closed Specialty 07/05/2018 07/06/2019 1 1 Services Required Encounter Details Date Type Department Care Team Description 07/07/2018 Consult SE Endocrinology Bacilio Stewart, Type 2 diabetes mellitus [address] [place] [address] complication, without [phone] [place] [address] insulin (HCC) (Primary [phone] Dx) (Work) Social History Tobacco Use Types [...] Last eye exam showed no retinopathy in [place], per her account. Denies any numbness or [...] file Gets together: Not on file Attends hoahaoism service: Not on file Active member of [...] up in a couple of weeks in [place]. - No skin changes or diabetic foot ulcers. - HTN. Reasonable control on therapy. - No neuropathy, normal monofilament exam. Follow up in about 6 weeks. Reviewed with the patient and her husbandin detail, they verbalized understanding and agreed with the plan. Bacilio Stewart MD Staff Director Global Sales Adriane Patel APRN, LOADING MACHINE OPERATOR HELPER - 07/07/2018 3:30 PM CDT Reviewed. documented in this encounter Plan of Treatment Not on filedocumented as of this encounter Results (ABNORMAL) Basic metabolic panel (07/07/2018 4:35 PM CDT) Analysis Performed At [facility] Time Signature Sodium 141 135 - 145 07/07/2018 [facility] mEq/L 5:59 PM T [facility] Potassium 4.2 3.5 - 5.1 07/07/2018 [facility] mEq/L 5:59 PM [facility] Chloride 108 (H) 98 - 107 07/07/2018 [facility] mEq/L 5:59 PM [facility] CO2 26 22 - 29 07/07/2018 [facility] mmol/L 5:59 PM [facility] Creatinine 1.4 (H) 0.4 - 1.2 07/07/2018 [facility] mg/dL 5:59 PM [facility] BUN 22 5 - 25 07/07/2018 [facility] mg/dL 5:59 PM [facility] Glucose 181 (H) 70 - 100 07/07/2018 [facility] mg/dL 5:59 PM [facility] Calcium, 9.7 8.4 - 10.2 07/07/2018 [facility] Total,S mg/dL 5:59 PM [facility] Fasting? No 07/07/2018 [facility] 4:35 PM [facility] Specimen Anatomical Collection Method Collection Time Receive d Time (Source) Location / / Volume Laterality Blood 07/07/2018 4:35 PM 9 5:26 CDT PM CDT Bacilio DELA CRUZ LAB BLOOD ORDERABLES Performing Organization Address City/State/ZIP Code Phon e Number [facility] [address] [place] [address] documented in this encounter Visit Diagnoses Diagnosis Type 2 diabetes mellitus with other spec ified complication, without long-term current use of insulin (HCC) - Primary documented in this encounter Care Teams Reprint Sorter Relationship Specialty Start Date End Date Adriane Patel, SEO SPECIALIST, LOADING MACHINE OPERATOR HELPER PCP - General 09/22/17 07/06/19 100 [facility] [place] [address] documented as of this encounter
--- OUTSIDE RECORDS SUMMARY | 2022-01-21 14:06 | XMS_ITS | Encounter Summary ---
:1945 Author Organization [facility] Address [address] [place] [address] Care Team Providers Name Role Phone Adriane Patel Ronak BLACK PULLER, TRANSFERRER Primary Care Provider [phone] Encounter Details Date Type Department Care Team Description 07/09/2018 Orders Only SE Endocrinology Bacilio Stewart, Type [address] [place] [address] specified complication, [place], [place] without long-t erm [address] current use of insulin [phone] ([facility]) (Primary Dx) (Work) Social History Tobacco Use [...] Primary documented in this encounter Care Teams Drywall Contractor Relationship Specialty Start Date End Date Adriane Patel, BLACK PULLER, TRANSFERRER PCP - General 09/22/17 07/06/19 100 [facility] [place] [address] documented as of this encounter
--- OUTSIDE RECORDS SUMMARY | 2022-01-21 14:06 | XMS_ITS | Encounter Summary ---
:[address] [facility] Address [address] [place] [address] Care Team Providers Name Role Phone Adriane Patel Ronak METAL PRECISION MACHINE ASSEMBLER, CLOSING MACHINE OPERATOR Primary Care Provider Encounter Details Date Type Department Care Team Description 07/07/2018 Lab SE Lab Type 2 diabetes mellitus wit h [address] [facility] other specified complication , [place] [address] without long-term current us e [phone] of insulin (HCC ) Social History Tobacco [...] CDT) athologist Signature GFR 37 (A) 07/07/2018 [facility] 5:59 PM CDT CENTER LAB[facility]ATORY 45 (A) 07/07/2018 [facility] Monegasque GFR 5:59 PM T CENTER LABORATORY Comment: [...] [facility] [address] [place] [address] (ABNORMAL) Hemoglobin A1c (07/07/2018 4:35 PM CDT) Analysis Performed At Patho logist Time Signature Hemoglobin A1C 8.7 (H) 4.0 - 5.6 07/07/2018 [place] % A1C 5:44 PM CDT MEDICAL CENTER [...] 5:26 Venous) CDT PM CDT Adriane Patel METAL PRECISION MACHINE ASSEMBLER, CLOSING MACHINE OPERATOR LAB BLOOD ORDERABLES Performing Organization Address [facility] Phon e Number [facility] [address] [place] [address] (ABNORMAL) Basic metabolic panel (07/07/2018 4:35 PM CDT) Analysis Performed At Patho logist Time Signature Sodium 141 135 - 145 07/07/2018 [facility] mEq/L 5:59 PM [facility] Potassium 4.2 3.5 - 5.1 07/07/2018 [facility] mEq/L 5:59 PM [facility] Chloride 108 (H) 98 - 107 07/07/2018 [facility] mEq/L 5:59 PM [facility] CO2 26 22 - 29 07/07/2018 [facility] mmol/L 5:59 PM [facility] Creatinine 1.4 (H) 0.4 - 1.2 07/07/2018 [facility] mg/dL 5:59 PM [facility] BUN 22 5 - 25 07/07/2018 [facility] mg/dL 5:59 PM [facility] Glucose 181 (H) 70 - 100 07/07/2018 [facility] mg/dL 5:59 PM [facility] Calcium, 9.7 8.4 - 10.2 07/07/2018 [facility] Total,S mg/dL 5:59 PM [facility] Fasting? No 07/07/2018 [facility] 4:35 PM [facility] Specimen Anatomical Collection Method Collection Time Receive d Time (Source) Location / / Volume Laterality Blood 07/07/2018 4:35 PM 9 5:26 CDT PM CDT Bacilio DELA CRUZ LAB BLOOD ORDERABLES Performing Organization Address [facility] Phon e Number [facility] [address] [place] [address] documented in this encounter Visit Diagnoses Diagnosis Type 2 diabetes mellitus with other spec ified complication, without long-term current use of insulin (HCC) documented in this encounter Care Teams Pastry Supervisor Relationship Specialty Start Date End Date Adriane Patel APRN, CLOSING MACHINE OPERATOR PCP - General 09/22/17 07/06/19 100 [place] [address] documented as of this encounter
--- OUTSIDE RECORDS SUMMARY | 2022-01-21 14:06 | XMS_ITS | Encounter Summary ---
:[address] [facility] Address [address] [place] [address] Care Team Providers Name Role Phone Adriane Patel Ronak RUDDN, BARKING MACHINE FEEDER Primary Care Provider [phone] Encounter Details Date Type Department Care Team Description 08/02/2018 Telephone Diabetic Education 2nd Bacilio Stewart MBBS Floor [address] [facility] [address] [place] [address] [place], [place] [address] [phone] Social History Tobacco Use Types Packs/Day Years [...] on filedocumented in this encounter Care Teams Licensed Practical Vocational Nurse Relationship Specialty Start Date End Date Adriane Patel APRN, BARKING MACHINE FEEDER PCP - General 09/22/17 07/06/19 100 [facility] [place] [address] documented as of this encounter
--- OUTSIDE RECORDS SUMMARY | 2022-01-21 14:06 | XMS_ITS | Encounter Summary ---
:1945 Author Organization [facility] Address [address] [place] [address] Care Team Providers Name Role Phone Adriane Patel FOREPART ROUNDER, PRINTED CIRCUIT BOARD PANELS DEVELOPER Primary Care Provider [phone] Encounter Details Date Type Department Care Team Description 07/17/2018 Telephone Chuckie Pierre Adriane Patel, [address] FOREPART ROUNDER, PRINTED CIRCUIT BOARD PANELS DEVELOPER [place], [place] [address] [address] [facility] [address] [phone] [place], [place] [address] Social History Tobacco Use [...] Notes Telephone Encounter - Adriane Patel APRN, PRINTED CIRCUIT BOARD PANELS DEVELOPER - 07/17/2018 9:43 AM CDT Message left on the patient's answering machine, her she did not need treatment, referring to the urine culture. Will try and contact the patient on Thursday. documented in this encounter Plan of Treatment Not on filedocumented as of this encounter Visit Diagnoses Not on filedocumented in this encounter Care Teams Special Needs Babysitter Relationship Specialty Start Date End Date Adriane Patel APRN, LEONARD PCP - General 09/22/17 07/06/19 100 [place] [address] documented as of this encounter
--- OUTSIDE RECORDS SUMMARY | 2022-01-21 14:06 | XMS_ITS | Encounter Summary ---
:1945 Author Organization [facility] Address [address] [place] [address] Care Team Providers Name Role Phone Adriane Patel Ronak BOTTOM STAINER, ENVIRONMENTAL CONSTRUCTION ENGINEER Primary Care Provider [phone] Encounter Details Date Type Department Care Team Description 07/26/2018 Orders Only SE Endocrinology Bacilio Stewart, Type 2 diabetes mellitus wit h other specified complication, without long-term current use of insulin (HCC) (Primary Dx); [address] [facility] MBBS Type 2 diabetes mellitus without complic ation, without long-term current use of insulin (HCC) [place] [address] [address] [facility] [phone] [place], [place] [address] Social History Tobacco Use Types Packs/Day Years [...] (HCC) documented in this encounter Care Teams Sand Miller Relationship Specialty Start Date End Date Adriane Patel APRN, ENVIRONMENTAL CONSTRUCTION ENGINEER PCP - General 09/22/17 07/06/19 100 [facility] [place] [address] documented as of this encounter
--- OUTSIDE RECORDS SUMMARY | 2022-01-21 14:06 | XMS_ITS | Encounter Summary ---
:1945 Author Organization [facility] Address [address] [place] [address] Care Team Providers Name Role Phone Adriane Patel APRN, CNP Primary Care Provider Reason for Referral Consultation (Routine) - Closed Specialty Diagnoses / Procedures Referred By Contact Refer red To Contact Diagnoses Lower extremity edema Adriane Patel, [facility] - [address] [address] [place] [address] Phone: Fax: Referral ID Status Reason Start Date Expiration Date Visits Requ ested Visits Authorized [id number] Closed 07/18/2018 07/19/2019 1 1 Reason for Visit Reason Comments UTI Encounter Details Date Type Department Care Team Description 07/15/2018 Office Visit [place] Adriane Patel Lower extremity edema (Prima ry Dx); [address] , LEONARD RESENDEZ Dysuria; [place], [place] 100 [facility] AV Anemia, unspecified type; [address] [place] [address] Rosacea [phone] Social History Tobacco Use Types Packs/Day Years [...] 12/23/2018 organizations such as quaker groups, unions, [employer] or athletic groups, or school groups? How [...] Results (ABNORMAL) BNPNT (07/15/2018 5:05 PM CDT) P athologist Signature NT-proBNP 267 (H) 5 - 125 07/16/2018 [facility] pg/mL 1:24 PM CDT CENTER [...] Venous) CDT 12:30 PM CDT Adriane Patel GAME TESTER, ASSISTANT CENTER DIRECTOR LAB BLOOD ORDERABLES Performing Organization Address City/State/ZIP Code Phon e Number [facility] [address] [place] [address] Urine culture (clean catch) (07/15/2018 4:05 PM CDT) [facility] gist Method Time Signature Urine Culture <10,000 07/16/2018 [place] cfu/ml No 12:55 PM CDT [facility] further ID. LABORATORY Specimen Anatomical Collection Method Collection Time Receive d Time (Source) Location / / Volume Laterality Urine, Clean 07/15/2018 4:05 PM 9 Catch CDT 12:[address] [facility] - 06/18 12:55 PM CDT Patient does not have an Amoxicillin or PCN allergy Adriane Patel APRN, LEONARD LAB MICROBIOLOGY - GENERA L ORDERABLES Performing Organization Address City/State/ZIP Code Phon e Number [facility] [address] [place] [address] (ABNORMAL) Urinalysis with reflex microscopic (clean catch) (07/15/2018 4:00 PM CDT) [facility] Method Time Signature Type CLEAN CATCH 07/15/2018 [facility] 4:16 PM CDT [place] Color, Urine STRAW YELLOW 07/15/2018 [facility] 4:16 PM CDT [place] Clarity, HAZY (A) CLEAR 07/15/2018 [facility] Urine 4:16 PM CDT [place] Glucose, NEGATIVE NEGATIVE 07/15/2018 [facility] Urine mg/dL 4:16 PM CDT [place] Bilirubin, NEGATIVE NEGATIVE 07/15/2018 [facility] Urine 4:16 PM CDT [place] Ketones, NEGATIVE NEGATIVE 07/15/2018 [facility] Urine mg/dL 4:16 PM CDT [place] Specific 1.020 1.000 07/15/2018 [facility] [place], ->=1.030 4:16 PM CDT [place] Urine Blood, Urine TRACE (A) NEGATIVE 07/15/2018 [facility] 4:16 PM CDT [place] pH, Urine 5.5 5.0 - 7.0 07/15/2018 [facility] 4:16 PM CDT [place] Protein, NEGATIVE NEGATIVE-TRA 07/15/2018 [facility] Urine CE mg/dL 4:16 PM CDT [place] Urobilinogen, 0.2 0.2 - 1.0 07/15/2018 [facility] Urine E.U./dL 4:16 PM CDT [place] [...] [place] [facility] [address] [place] [address] documented in this encounter Visit Diagnoses Diagnosis Lower extremity edema - Primary Edema Dysuria Anemia, unspecified type Rosacea Dysuria Lower extremity edema Edema documented in this encounter Care Teams Briquetter Operator Relationship Specialty Start Date End Date Adriane Patel APRN, ASSISTANT CENTER DIRECTOR PCP - General 09/22/17 07/06/19 100 [facility] [place] [address] documented as of this encounter
--- OUTSIDE RECORDS SUMMARY | 2022-01-21 14:06 | XMS_ITS | Encounter Summary ---
:1945 Author Organization [facility] Address [address] [place] [address] Care Team Providers Name Role Phone Patel, Adriane Simons WIRED MUSIC OPERATOR, METAL PRODUCTS FABRICATOR ASSEMBLER Primary Care Provider Reason for Visit Reason Comments Shortness of Breath Encounter Details Date Type Department Care Team Description 10/29/2018 Office Visit [place] Adriane Patel Dyspnea, unspecified [address] M, WIRED MUSIC OPERATOR, METAL PRODUCTS FABRICATOR ASSEMBLER type (Primary Dx) [place], [place] 100 [facility] [address] [place] [address] Social History Tobacco Use Types Packs/Day Years [...] this plan of care. Adriane Patel APRN, METAL PRODUCTS FABRICATOR ASSEMBLER documented in this encounter Plan of [...] Signature Sodium 139 135 - 145 10/29/2018 [facility] mmol/L 12:04 PM CDT [place] Potassium 4.1 3.5 - 5.1 10/29/2018 [facility] mmol/L 12:04 PM CDT [place] Comment: . Chloride 100 98 - 107 mmol/L 10/29/2018 12:04 PM CDT [facility] [place] Comment: . CO2 27 22 - 29 mmol/L 10/29/2018 12:04 PM CDT [facility] Comment: . Creatinine 1.3 (H) 0.4 - 1.2 mg/dL 10/29/2018 12:04 PM CDT [facility] [place] Comment: . BUN 20 5 - 25 mg/dL 10/29/2018 12:04 PM CDT [facility] [place] Comment: . Glucose 180 (H) 70 - 100 mg/dL 10/29/2018 12:04 PM [facility] Deana [facility] CDT Calcium, Total,S 9.5 8.4 - 10.2 mg/dL 10/29/2018 12:04 PM [facility] [place] CDT Comment: . Fasting? No 10/29/2018 12:02 PM CDT [facility] JUSTINA [facility]ER[facility] Comment: 1+ lipemic Specimen Anatomical Collection Method Collection Time Receive d Time (Source) Location / / Volume Laterality Blood (Blood, 10/29/2018 11:40 10/29/2018 Venous) AM CDT 12:01 PM CDT Adriane Patel APRN, METAL PRODUCTS FABRICATOR ASSEMBLER LAB BLOOD ORDERABLES Performing Organization Address City/State/ZIP Code Phon e Number [facility] [place] [address] [place] [address] (ABNORMAL) BNPNT (10/29/2018 11:40 AM CDT) P athologist Signature NT-proBNP 258 (H) 5 - 125 10/29/2018 [facility] pg/mL 7:09 PM CDT CENTER [...] AM CDT PM CDT Adriane Patel APRN, METAL PRODUCTS FABRICATOR ASSEMBLER LAB BLOOD ORDERABLES Performing Organization Address City/State/ZIP Code Phon e Number [facility] [address] [place] [address] (ABNORMAL) Lipid panel (10/29/2018 11:40 AM CDT) athologist Signature Cholesterol 243 (A) 0 - 199 10/29/2018 [facility] mg/dL 6:49 PM CDT CENTER LABORATORY Comment: Recommended by National Cholesterol Education Program (ATP III) -------- Cholesterol Ranges -------- <200 ? Desirable 200-239 ? Borderline high >=240 ? High Triglycerides 340 (A) 0 - 149 mg/dL 10/29/2018 6:49 PM CDT [facility] Comment: -------- TRIG Ranges -------- <150 ?Normal 150-199 ? Borderline high 200-499 ? High >=500 ? Very high HDL 36 (A) 40 - 60 mg/dL 10/29/2018 6:49 PM CDT [facility] Comment: -------- HDL Ranges -------- <40 ?Low 40-59 ?Normal >=60 ? Optimal LDL Calculated 139 (A) 0 - 99 mg/dL 10/29/2018 6:49 PM CDT [facility] Comment: -------- LDL Ranges -------- <100 ? Optimal 100-129 ?Near optimal/above op timal 130-159 ?Borderline high 160-189 ?High >=190 ?Very high Specimen Anatomical Collection Method Collection Time Receive d Time (Source) Location / / Volume Laterality Blood (Blood, 10/29/2018 11:40 10/29/2018 6:21 Venous) AM CDT PM CDT Adriane Patel APRN, METAL PRODUCTS FABRICATOR ASSEMBLER LAB BLOOD ORDERABLES Performing Organization Address City/State/ZIP Code Phon e Number [facility] [address] [place] [address] (ABNORMAL) CBC Branch Off w/Diff (10/29/2018 11:40 AM CDT) [facility] gist Method Time Signature WBC 5.7 3.5 - 10.5 10/29/2018 [facility] K/uL 12:04 PM CDT [place] RBC 3.74 (L) 3.90 - 10/29/2018 [facility] 5.00 M/uL 12:04 PM CDT [place] Hemoglobin 11.0 (L) 12.0 - 10/29/2018 [facility] 15.5 g/dL 12:04 PM CDT [place] Hematocrit 33.8 (L) 35.0 - 10/29/2018 [facility] 44.0 % 12:04 PM CDT [place] Platelets 174 150 - 450 10/29/2018 [facility] K/uL 12:04 PM CDT [place] MCV 90.4 81.6 - 10/29/2018 [facility] 98.3 fL 12:04 PM CDT [place] MCH 29.4 26.0 - 10/29/2018 [facility] 32.0 pg 12:04 PM CDT [place] MCHC 32.5 32.0 - 10/29/2018 [facility] 36.0 g/dL 12:04 PM CDT [place] RDW 12.8 11.9 - 10/29/2018 [facility] 15.5 % 12:04 PM CDT [place] Lymphocytes % 22.0 18.0 - 10/29/2018 [facility] 45.0 % 12:04 PM CDT [place] Mid-size Cells 7.0 3.3 - 10.1 10/29/2018 [facility] % 12:04 PM CDT [place] Granulocytes/Jean Claude 71.0 45.8 - 10/29/2018 [facility] trophils 73.7 % 12:04 PM CDT [place] Lymphocytes 1.3 0.9 - 2.9 10/29/2018 [facility] Absolute K/uL 12:04 PM CDT [place] MIDS Absolute 0.4 0.2 - 0.8 10/29/2018 [facility] K/uL 12:04 PM CDT [place] Granulocytes/Jean Claude 4.0 2.1 - 8.7 10/29/2018 [facility] trophils K/uL 12:04 PM CDT [place] Absolute Specimen Anatomical Collection Method Collection Time Receive d Time (Source) Location / / Volume Laterality Blood (Blood, 10/29/2018 11:40 10/29/2018 Venous) AM CDT 12:01 PM CDT Adriane Patel APRN, CNP LAB BLOOD ORDERABLES Performing Organization Address City/State/ZIP Code Phon e Number [facility] [place] [address] [place] [address] documented in this encounter Visit Diagnoses Diagnosis Dyspnea, unspecified type - Primary documented in this encounter Care Teams Pleater Relationship Specialty Start Date End Date Adriane Patel APRN, LEONARD PCP - General 09/22/17 07/06/19 100 [facility] [place] [address] documented as of this encounter
--- OUTSIDE RECORDS SUMMARY | 2022-01-21 14:06 | XMS_ITS | Encounter Summary ---
:1945 Author Organization [facility] Address [address] [place] [address] Care Team Providers Name Role Phone Adriane Patel OTHER WOOD PROCESSING MACHINE OPERATOR, WALLPAPER SCRAPER Primary Care Provider [phone] Encounter Details Date Type Department Care Team Description 07/19/2018 Telephone [place] Adriane Patel, [address] OTHER WOOD PROCESSING MACHINE OPERATOR, WALLPAPER SCRAPER [place], [place] [address] [address] [facility] [phone] [place], [place] [address] Social History Tobacco Use [...] Notes Telephone Encounter - Adriane Patel APRN, WALLPAPER SCRAPER - 07/19/2018 2:38 PM CDT The patient reports she continues to have lower extremity edema, and will contact your exceptional needs teacher. documented in this encounter Plan of Treatment Not on filedocumented as of this encounter Visit Diagnoses Not on filedocumented in this encounter Care Teams Type Proof Reproducer Relationship Specialty Start Date End Date Adriane Patel APRN, LEONARD PCP - General 09/22/17 07/06/19 100 [place] [address] documented as of this encounter
--- OUTSIDE RECORDS SUMMARY | 2022-01-21 14:06 | XMS_ITS | Encounter Summary ---
:1945 Author Organization [facility] Address [address] [place] [address] Care Team Providers Name Role Phone Adriane Patel AIRCRAFT BODY REPAIRER, LINE SERVICER Primary Care Provider Reason for Visit Reason Onset Date Comments UA 07/15/2018 UA RESULTS Encounter Details Date Type Department Care Team Description 07/15/2018 Telephone [place] Adriane Patel, UA (UA RESULTS) [address] AIRCRAFT BODY REPAIRER, [place], [place] [address] [address] [facility] [phone] [place], [place] [address] Social History Tobacco Use [...] filedocumented in this encounter Care Teams Data Modeling Specialist Relationship Specialty Start Date End Date Adriane Patel APRN, LINE SERVICER PCP - General 09/22/17 07/06/[address] [place] [address] [place] [address] documented as of this encounter
--- OUTSIDE RECORDS SUMMARY | 2022-01-21 14:06 | XMS_ITS | Encounter Summary ---
:1945 Author Organization [facility] Address [address] [place] [address] Care Team Providers Name Role Phone Jorge Adriane Simons OPERATIONS SUPPORT MANAGER, SEARCH ENGINEER Primary Care Provider [phone] Encounter Details Date Type Department Care Team Description 07/15/2018 Lab [place] Dysuria; [address] Lower extremity edema [place], [place] [address] Social History Tobacco Use [...] CDT) athologist Signature GFR 40 (A) 07/16/2018 [facility] 1:32 PM CDT CENTER LAB[facility] 49 (A) 07/16/2018 [facility] Liberian GFR 1:32 PM CDT [facility]ENTER [facility] Comment: GFR calculated from serum creatinine v alue Chronic Kidney Disease less than 60 mL/m in/1.73 m2 Kidney Failure less than 15 mL/min/1.73 m2 Note: effective 07/01/06 IDMS-Traceable MDRD Study Equation used. Specimen Anatomical Collection Method Collection Time Receive d Time (Source) Location / / Volume Laterality 07/15/2018 5:05 PM 9 5:05 CDT PM CDT Narrative [facility] - 06/18 1:32 PM CDT Called to CALL CANCELLED - RESULTS FAXED , , 07:51 07/16/2018 [id number] Outside Referring Lab Provider LAB BLOOD ORDERABLES Performing Organization Address City/State/ZIP Code Phon e Number [facility] [address] [place] [address] (ABNORMAL) CBC Branch Off w/Diff (07/15/2018 5:05 PM CDT) [facility] gist Method Time Signature WBC 7.3 3.5 - 10.5 07/15/2018 [facility] K/uL 5:12 PM CDT [place] RBC 3.68 (L) 3.90 - 07/15/2018 [facility] 5.00 M/uL 5:12 PM CDT [place] Hemoglobin 10.9 (L) 12.0 - 07/15/2018 [facility] 15.5 g/dL 5:12 PM CDT [place] Hematocrit 33.1 (L) 35.0 - 07/15/2018 [facility] 44.0 % 5:12 PM CDT [place] Platelets 191 150 - 450 07/15/2018 [facility] K/uL 5:12 PM CDT [place] MCV 89.9 81.6 - 07/15/2018 [facility] 98.3 fL 5:12 PM CDT [place] MCH 29.6 26.0 - 07/15/2018 [facility] 32.0 pg 5:12 PM CDT [place] MCHC 32.9 32.0 - 07/15/2018 [facility] 36.0 g/dL 5:12 PM CDT [place] RDW 13.0 11.9 - 07/15/2018 [facility] 15.5 % 5:12 PM CDT [place] Lymphocytes % 19.1 18.0 - 07/15/2018 [facility] 45.0 % 5:12 PM CDT [place] Mid-size Cells 8.6 3.3 - 10.1 07/15/2018 [facility] % 5:12 PM CDT [place] Granulocytes/Jean Claude 72.3 45.8 - 07/15/2018 [facility] trophils 73.7 % 5:12 PM CDT [place] Lymphocytes 1.4 0.9 - 2.9 07/15/2018 [facility] Absolute K/uL 5:12 PM CDT [place] MIDS Absolute 0.6 0.2 - 0.8 07/15/2018 [facility] K/uL 5:12 PM CDT [place] Granulocytes/Jean Claude 5.3 2.1 - 8.7 07/15/2018 [facility] trophils K/uL 5:12 PM CDT [place] Absolute Specimen Anatomical Collection Method Collection Time Receive d Time (Source) Location / / Volume Laterality 07/15/2018 5:05 PM 9 5:11 CDT PM CDT Outside Referring Lab Provider LAB BLOOD ORDERABLES Performing Organization Address City/State/ZIP Code Phon e Number [facility] [place] [address] [place] [address] AST (07/15/2018 5:05 PM CDT) athologist Signature AST 25 8 - 43 U/L 07/16/2018 [facility] 1:32 PM CDT [place] [facility] Specimen Anatomical Collection Method Collection Time Receive d Time (Source) Location / / Volume Laterality 07/15/2018 5:05 PM 9 CDT 12:40 PM CDT [facility] - 06/18 1:32 PM CDT Called to CALL CANCELLED - RESULTS FAXED , , 07:51 07/16/2018 [id number] Outside Referring Lab Provider LAB BLOOD ORDERABLES Performing Organization Address City/State/ZIP Code Phon e Number [facility] [address] [place] [address] (ABNORMAL) C-reactive protein ([facility] preferred) (07/15/2018 5:05 PM CDT) athologist Signature CRP 21.6 (H) 0.0 - 9.9 07/16/2018 [facility] mg/L 1:39 PM CDT CENTER [facility]ORY Comment: . Specimen Anatomical Collection Method Collection Time Receive d Time (Source) Location / / Volume Laterality 07/15/2018 5:05 PM 9 CDT 12:30 PM CDT [facility] - 06/18 1:39 PM CDT Called to CALL CANCELLED - RESULTS FAXED , , 07:51 07/16/2018 [id number] Outside Referring Lab Provider LAB BLOOD ORDERABLES Performing Organization Address City/State/ZIP Code Phon e Number [facility] [address] [place] [address] (ABNORMAL) Creatinine, Serum (07/15/2018 5:05 PM CDT) athologist Signature Creatinine 1.3 (H) 0.4 - 1.2 07/16/2018 [facility] mg/dL 1:32 PM CDT [facility]ENTER [facility] Specimen Anatomical Collection Method Collection Time Receive d Time (Source) Location / / Volume Laterality 07/15/2018 5:05 PM 9 CDT 12:40 PM CDT Narrative [facility] - 06/18 1:32 PM CDT Called to CALL CANCELLED - RESULTS FAXED , , 07:51 07/16/2018 [id number] Outside Referring Lab Provider LAB BLOOD ORDERABLES Performing Organization Address City/[facility]/ZIP Code Phon e Number [facility] [address] [place] [id number] ALT (07/15/2018 5:05 PM CDT) athologist Signature ALT (SGPT) 22 0 - 34 U/L 07/16/2018 [facility] 1:32 PM CDT [facility]ENTER [facility] Specimen Anatomical Collection Method Collection Time Receive d Time (Source) Location / / Volume Laterality 07/15/2018 5:05 PM 9 CDT 12:40 PM CDT Narrative [facility] - 06/18 1:32 PM CDT Called to CALL CANCELLED - RESULTS FAXED , , 07:51 07/16/2018 [id number] Outside Referring Lab Provider LAB BLOOD ORDERABLES Performing Organization Address City/[facility]/ZIP Code Phon e Number [facility] [address] [place] [address] Albumin (07/15/2018 5:05 PM CDT) athologist Signature Albumin, Serum 4.0 3.5 - 5.0 07/16/2018 [facility] g/dL 1:32 PM CDT [facility] Specimen Anatomical Collection Method Collection Time Receive d Time (Source) Location / / Volume Laterality 07/15/2018 5:05 PM 9 CDT 12:40 PM CDT Narrative [facility] - 06/18 1:32 PM CDT Called to CALL CANCELLED - RESULTS FAXED , , 07:51 07/16/2018 [id number] Outside Referring Lab Provider LAB BLOOD ORDERABLES Performing Organization Address City/[facility]/ZIP Code Phon e Number [facility] [address] [place] [address] (ABNORMAL) ESR-Sed rate (07/15/2018 5:05 PM CDT) P athologist Signature Sed Rate 74 (H) 0 - 29 07/16/2018 [facility] mm/hr 1:35 PM CDT [facility]ENTER [facility] Specimen Anatomical Collection Method Collection Time Receive d Time (Source) Location / / Volume Laterality 07/15/2018 5:05 PM 9 CDT 12:37 PM CDT Narrative [facility] - 06/18 1:35 PM CDT Called to CALL CANCELLED - RESULTS FAXED , , 07:51 07/16/2018 [id number] Outside Referring Lab Provider LAB BLOOD ORDERABLES Performing Organization Address [facility]/ZIP Code Phon e Number [facility] [address] [place] [address] (ABNORMAL) BNPNT (07/15/2018 5:05 PM CDT) P athologist Signature NT-proBNP 267 (H) 5 - 125 07/16/2018 [facility] pg/mL 1:24 PM CDT CENTER LABORATORY [...] CNP LAB BLOOD ORDERABLES Performing Organization Address City/[facility]/ZIP Code Phon e Number [facility] [address] [place] [address] Urine culture (clean catch) (07/15/2018 4:05 PM CDT) [facility] gist Method Time Signature Urine Culture <10,000 07/16/2018 [place] cfu/ml No 12:55 PM CDT [facility] further ID. LABORATORY Specimen Anatomical Collection Method Collection Time Receive d Time (Source) Location / / Volume Laterality Urine, Clean 07/15/2018 4:05 PM 9 Catch CDT 12:35 PM CDT Narrative [facility] - 06/18 12:55 PM CDT Patient does not have an Amoxicillin or PCN allergy Adriane Patel APRN, CNP LAB MICROBIOLOGY - GENERA L ORDERABLES Performing Organization Address City/[facility]/ZIP Code Phon e Number [facility] [address] [place] [address] (ABNORMAL) Urinalysis-Microscopic Exam (07/15/2018 4:00 PM CDT) [facility] Method Time Signature Casts, urine NONE SEEN 0-2 Hyaline 07/15/2018 [facility] /lpf 4:16 PM CDT [place] Significant NONE SEEN None Seen 07/15/2018 [facility] casts, urine /lpf 4:16 PM CDT [place] RBC, Urine 11-20 (A) 0 - 3 /hpf 07/15/2018 [facility] 4:16 PM CDT [place] WBC, Urine 11-20 (A) /hpf 07/15/2018 [facility] 4:16 PM CDT [place] Comment: Male Ref Range ? 0-3/hpf Female Ref Range ?? 0-10/hpf Squamous Epithelial, 1+ (A) Few /lpf 07/15/2018 4:16 PM [facility] [place] Urine CDT Trans Epithelial, NONE SEEN 0 - 3 /hpf 07/15/2018 4:16 PM [facility] [place] Urine CDT Renal Tubular Cells, NONE SEEN 0 - 1 /hpf 07/15/2018 4:16 PM [facility] [place] Urine CDT Bacteria, Urine 2+ (A) None Seen /hpf 07/15/2018 4:16 PM [facility] [place] CDT Specimen Anatomical Collection Method Collection Time Receive d Time (Source) Location / / Volume Laterality 07/15/2018 4:00 PM 9 4:00 CDT PM CDT Adriane Patel APRN, SEARCH ENGINEER LAB URINE ORDERABLES Performing Organization Address City/State/ZIP Code Phon e Number [facility] [place] [address] [place] [address] (ABNORMAL) Urinalysis with reflex microscopic (clean catch) (07/15/2018 4:00 PM CDT) [facility] Method Time Signature Type CLEAN CATCH 07/15/2018 [facility] 4:16 PM CDT [place] Color, Urine STRAW YELLOW 07/15/2018 [facility] 4:16 PM CDT [place] Clarity, HAZY (A) CLEAR 07/15/2018 [facility] Urine 4:16 PM CDT [place] Glucose, NEGATIVE NEGATIVE 07/15/2018 [facility] Urine mg/dL 4:16 PM CDT [place] Bilirubin, NEGATIVE NEGATIVE 07/15/2018 [facility] Urine 4:16 PM CDT [place] Ketones, NEGATIVE NEGATIVE 07/15/2018 [facility] Urine mg/dL 4:16 PM CDT [place] Specific 1.020 1.000 07/15/2018 [facility] [place], ->=1.030 4:16 PM CDT [place] Urine Blood, Urine TRACE (A) NEGATIVE 07/15/2018 [facility] 4:16 PM CDT [place] pH, Urine 5.5 5.0 - 7.0 07/15/2018 [facility] 4:16 PM CDT [place] Protein, NEGATIVE NEGATIVE-TRA 07/15/2018 [facility] Urine CE mg/dL 4:16 PM CDT [place] Urobilinogen, 0.2 0.2 - 1.0 07/15/2018 [facility] Urine E.U./dL 4:16 PM CDT [place] [...] Organization Address City/State/ZIP Code Phon e Number [facility] [place] [address] [place] [address] documented in this encounter Visit Diagnoses Diagnosis Dysuria Lower extremity edema Edema documented in this encounter Care Teams End Worker Relationship Specialty Start Date End Date Adriane Patel APRN, SEARCH ENGINEER PCP - General 09/22/17 07/06/19 100 [facility] [place] [address] documented as of this encounter
--- OUTSIDE RECORDS SUMMARY | 2022-01-21 14:06 | XMS_ITS | Encounter Summary ---
:1945 Author Organization [facility] Address [address] [place] [address] Care Team Providers Name Role Phone Adriane Patel Ronak TIPPING MACHINE OPERATOR AUTOMATIC, CARBURETOR EXPERT Primary Care Provider [phone] Reason for Visit Reason Comments Diabetes Type 2 Diabetes, now using i nsulin Consultation (Routine) - Closed Specialty Diagnoses / Procedures Referred By Contact Refer red To Contact Endocrinology Diagnoses Type 2 diabetes mellitus with other specified complication, without long-term current use of insulin (HCC) Bacilio Stewart MBBS [address] [place] [address] Referral ID Status Reason Start Date Expiration Date Visits V isits Requested Authorized [id number] Closed Specialty 07/19/2018 07/20/2019 1 1 Services Required Encounter Details Date Type Department Care Team Description 07/30/2018 Office Visit SE Diabetic Education Courtney Stewart mmad, MBBS [address] [place] [address] Type 2 diabetes 2nd Floor Yossi Potts RN 210 [place] [address] mellitus with other [address] [place] [address] complication, 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 How [...] Potts RN - 07/30/2018 10:00 AM CDT [facility] Patient Name: Marcial Adams Patient Identifier: [id number] Service Location: [facility] DIABETIC EDUCATION 2ND FLOOR [address] [place] [phone] Service Date: 07/30/2018 PATIENT EDUCATION- DIABETES VISIT LOCATION: [facility] REFERRING CLINICIAN: JOSE DE JESUS [...] Basal Calorie Needs: Race/Ethnicity: White/ Preferred Language: Chadian PERTINENT LABS: Hemoglobin A1C Lab Results Component [...] 2 MEDICATIONS: Last updated by: Adriane Patel, TIPPING MACHINE OPERATOR AUTOMATIC, CARBURETOR EXPERT On: 07/15/2018 DIABETES CARE ASSESSMENT: Blood Glucose Testing: Brand/Meter: Accu-Chek Guide Test Strips: Accu-Chek Guide Lancets: Accu-Chek Fast-Clix Blood Glucose target range: 100-140 mg/dL Blood Glucose Testing: check sugars twice a day, fasting and alternating before meals and bedtime. Insulin Pump: No Glucose Sensor: No Year of diabetes diagnosis: 2007 Previous diabetes education: [facility] Pt.Ed: 2014, 2016, 2017. [...] techniques- Competent. Sharps disposal- Competent. LOWERING RISKS [place] swing driver license requirements when using insulin (non-commercial) [...] records. At their request, I also reviewed [employer] swing driver license (non-commercial) requirements for personsusing insulin. [...] insulin adjustment, I will talk with the RN/test engineering intern, once a week, , until I am able to confidently do this myself or until my next visit with my main galley scullion. Patient reported achievement: New goal DIABETES MEDICATION GOAL: To bring blood sugars into normal range, I will take my medications as directed by my primary care provider/main galley scullion. Patient achievement: All of the time Yossi [...] (HCC) documented in this encounter Care Teams Equity Sales Assistant Relationship Specialty Start Date End Date Adriane Patel, TIPPING MACHINE OPERATOR AUTOMATIC, CARBURETOR EXPERT PCP - General 09/22/17 07/06/19 [address] [place] [address] documented as of this encounter
--- OUTSIDE RECORDS SUMMARY | 2022-01-21 14:06 | XMS_ITS | Encounter Summary ---
:1945 Author Organization [facility] Address [address] [place] [address] Care Team Providers Name Role Phone Adriane Patel Ronak PRIMARY CLINICIAN, BUILDING MAINTENANCE MECHANIC Primary Care Provider [phone] Encounter Details Date Type Department Care Team Description 10/29/2018 Lab [place] Dyspnea, unspecified type; [address] Type 2 diabetes mellitus wit h other specified complication, unspecified whether mcc insulin use (HCC) [place], [place] [address] Social History Tobacco Use [...] specified the results complication, section. unspecified whether tank terminal gauger insulin use (HCC) LIPID PANEL Routine 10/29/2018 [...] CDT) athologist Signature GFR 40 (A) 10/29/2018 [facility] 12:04 PM T [facility] 49 (A) 10/29/2018 [facility] Barb[place] GFR 12:04 PM T [facility] Comment: [...] CDT 11:40 AM CDT Adriane Patel APRN, BUILDING MAINTENANCE MECHANIC LAB BLOOD ORDERABLES Performing Organization Address City/State/ZIP Code Phon e Number [facility] [address] [place] [address] (ABNORMAL) Hemoglobin A1c (10/29/2018 11:40 AM CDT) Analysis Performed At Patho logist Time Signature Hemoglobin A1C 8.0 (H) 4.0 - 5.6 10/29/2018 [place] % A1C 7:20 PM [facility] [...] Organization Address City/State/ZIP Code Phon e Number [facility] [address] [place] [address] (ABNORMAL) CBC Branch Off w/Diff (10/29/2018 11:40 AM CDT) [facility] gist Method Time Signature WBC 5.7 3.5 - 10.5 10/29/2018 [facility] [place] K/uL 12:04 PM CDT [place] RBC 3.74 (L) 3.90 - 10/29/2018 [facility] [place] 5.00 M/uL 12:04 PM CDT [place] Hemoglobin 11.0 (L) 12.0 - 10/29/2018 [facility] [place] 15.5 g/dL 12:04 PM CDT [place] Hematocrit 33.8 (L) 35.0 - 10/29/2018 [facility] [place] 44.0 % 12:04 PM CDT [place] Platelets 174 150 - 450 10/29/2018 [facility] K/uL 12:04 PM CDT [place] MCV 90.4 81.6 - 10/29/2018 [facility] [place] 98.3 fL 12:04 PM CDT [place] MCH 29.4 26.0 - 10/29/2018 [facility] [place] 32.0 pg 12:04 PM CDT [place] MCHC 32.5 32.0 - 10/29/2018 [facility] [place] 36.0 g/dL 12:04 PM CDT [place] RDW 12.8 11.9 - 10/29/2018 [facility] [place] 15.5 % 12:04 PM CDT [place] Lymphocytes % 22.0 18.0 - 10/29/2018 [facility] [place] 45.0 % 12:04 PM CDT [place] Mid-size Cells 7.0 3.3 - 10.1 10/29/2018 [facility] [place] % 12:04 PM CDT [place] Granulocytes/Jean Claude 71.0 45.8 - 10/29/2018 [facility] [place] trophils 73.7 % 12:04 PM CDT [place] Lymphocytes 1.3 0.9 - 2.9 10/29/2018 [facility] Absolute K/uL 12:04 PM CDT [place] MIDS Absolute 0.4 0.2 - 0.8 10/29/2018 [facility] K/uL 12:04 PM CDT [place] Granulocytes/Jean Claude 4.0 2.1 - 8.7 10/29/2018 [facility] trophils K/uL 12:04 PM CDT [place] Absolute Specimen Anatomical Collection Method Collection Time Receive d Time (Source) Location / / Volume Laterality Blood (Blood, 10/29/2018 11:40 10/29/2018 Venous) AM CDT 12:01 PM CDT Adriane Patel APRN, BUILDING MAINTENANCE MECHANIC LAB BLOOD ORDERABLES Performing Organization Address City/State/ZIP Code Phon e Number [facility] [place] [address] [place] [address] (ABNORMAL) Lipid panel (10/29/2018 11:40 AM CDT) athologist Signature Cholesterol 243 (A) 0 - 199 10/29/2018 [facility] mg/dL 6:49 PM CDT [facility]ENTER [facility] Comment: Recommended by National Cholesterol Education Program (ATP III) -------- Cholesterol Ranges -------- <200 ? Desirable 200-239 ? Borderline high >=240 ? High Triglycerides 340 (A) 0 - 149 mg/dL 10/29/2018 6:49 PM CDT [facility] Comment: -------- TRIG Ranges -------- <150 ?Normal 150-199 ? Borderline high 200-499 ? High >=500 ? Very high HDL 36 (A) 40 - 60 mg/dL 10/29/2018 6:49 PM CDT [facility] Comment: -------- HDL Ranges -------- <40 ?Low 40-59 ?Normal >=60 ? Optimal LDL Calculated 139 (A) 0 - 99 mg/dL 10/29/2018 6:49 PM CDT [facility] Comment: -------- LDL Ranges -------- <100 ? Optimal 100-129 ?Near optimal/above op timal 130-159 ?Borderline high 160-189 ?High >=190 ?Very high Specimen Anatomical Collection Method Collection Time Receive d Time (Source) Location / / Volume Laterality Blood (Blood, 10/29/2018 11:40 10/29/2018 6:21 Venous) AM CDT PM CDT Adriane Patel APRN, BUILDING MAINTENANCE MECHANIC LAB BLOOD ORDERABLES Performing Organization Address City/State/ZIP Code Phon e Number [facility] [address] [place] [address] (ABNORMAL) BNPNT (10/29/2018 11:40 AM CDT) P athologist Signature NT-proBNP 258 (H) 5 - 125 10/29/2018 [facility] pg/mL 7:09 PM CDT [facility]ENTER [facility] [...] AM CDT PM CDT Adriane Patel APRN, BUILDING MAINTENANCE MECHANIC LAB BLOOD ORDERABLES Performing Organization Address City/State/ZIP Code Phon e Number [facility] [address] [place] [address] (ABNORMAL) Basic metabolic panel (10/29/2018 11:40 AM CDT) P athologist Signature Sodium 139 135 - 145 10/29/2018 [facility] mmol/L 12:04 PM CDT [place] Potassium 4.1 3.5 - 5.1 10/29/2018 [facility] [place] mmol/L 12:04 PM CDT [place] Comment: . Chloride 100 98 - 107 mmol/L 10/29/2018 12:04 PM CDT [facility] [place] Comment: . CO2 27 22 - 29 mmol/L 10/29/2018 12:04 PM CDT O [place] Comment: . Creatinine 1.3 (H) 0.4 - 1.2 mg/dL 10/29/2018 12:04 PM CDT [facility] [place] Comment: . BUN 20 5 - 25 mg/dL 10/29/2018 12:04 PM CDT [facility] [place] Comment: . Glucose 180 (H) 70 - 100 mg/dL 10/29/2018 12:04 PM [facility] [place] CDT Calcium, Total,S 9.5 8.4 - 10.2 mg/dL 10/29/2018 12:04 PM [facility] [place] CDT Comment: . Fasting? No 10/29/2018 12:02 PM CDT [facility] [place] Comment: 1+ lipemic Specimen Anatomical Collection Method Collection Time Receive d Time (Source) Location / / Volume Laterality Blood (Blood, 10/29/2018 11:40 10/29/2018 Venous) AM CDT 12:01 PM CDT Adriane Patel APRN, BUILDING MAINTENANCE MECHANIC LAB BLOOD ORDERABLES Performing Organization Address City/State/ZIP Code Phon e Number [facility] [place] [address] [place] [address] documented in this encounter Visit Diagnoses Diagnosis Dyspnea, unspecified type Type 2 diabetes mellitus with other spec ified complication, unspecified whether tank terminal gauger insulin use (HCC) documented in this encounter Care Teams Clinical Rn Manager Relationship Specialty Start Date End Date Adriane Patel APRN, BUILDING MAINTENANCE MECHANIC PCP - General 09/22/17 07/06/19 100 [facility] A[place]ARK [id number] documented as of this encounter
--- OUTSIDE RECORDS SUMMARY | 2022-01-21 14:06 | XMS_ITS | Encounter Summary ---
:1945 Author Organization [facility] Address [address] [place] [address] Care Team Providers Name Role Phone Adriane Patel TRANSFUSION NURSE, MANAGER HEART FAILURE Primary Care Provider [phone] Encounter Details Date Type Department Care Team Description 07/20/2018 Telephone [place] Adriane Patel, [address] TRANSFUSION NURSE, MANAGER HEART FAILURE [place], [place] [address] 100 [address] [facility] [phone] [place], [place] [address] Social History Tobacco Use [...] Notes Telephone Encounter - Adriane Patel APRN, MANAGER HEART FAILURE - 07/20/2018 4:24 PM CDT The patient will start a low dose of Lasix 10 mg daily x 7 days and will be educated on insulin injection. documented in this encounter Plan of Treatment Not on filedocumented as of this encounter Visit Diagnoses Not on filedocumented in this encounter Care Teams Rag Cutting Machine Tender Relationship Specialty Start Date End Date Adriane Patel APRN, LEONARD PCP - General 09/22/17 07/06/19 100 [facility] IN[facility] [facility] [place] [address] documented as of this encounter
--- OUTSIDE RECORDS SUMMARY | 2022-01-21 14:06 | XMS_ITS | Encounter Summary ---
:1945 Author Organization [facility] Address [address] [place] [address] Care Team Providers Name Role Phone Adriane Patel CYTOTECHNOLOGIST/HISTOTECHNOLOGIST, MANAGER OF MARKETING Primary Care Provider Encounter Details Date Type Department Care Team Description 08/16/2018 Telephone [place] Adriane Patel, [address] CYTOTECHNOLOGIST/HISTOTECHNOLOGIST, MANAGER OF MARKETING [place], [place] [address] [address] [facility] [address] [phone] [place], [place] [address] Social History Tobacco Use [...] to a nurse. Telephone Encounter - Adriane Paetl APRN, LEONARD - 08/20/2018 7:42 AM CDT [...] Marcial is calling because she saw her air brake rigger, Dr. Currie at [place]. He told her that her cholesterol is [...] on filedocumented in this encounter Care Teams Set Up Mechanic Coil Winding Machines Relationship Specialty Start Date End Date Adriane Patel APRN, MANAGER OF MARKETING PCP - General 09/22/17 07/06/19 100 [facility] [place] [address] documented as of this encounter
--- OUTSIDE RECORDS SUMMARY | 2022-01-21 14:06 | XMS_ITS | Encounter Summary ---
:1945 Author Organization [facility] Address [address] [place] [address] Care Team Providers Name Role Phone Adriane Patel Ronak APPLICATIONS ENGINEER, LUNG GUN OPERATOR Primary Care Provider [phone] Reason for Visit Reason Comments Diabetes Type 2 Diabete, using insuli n, follow up Encounter Details Date Type Department Care Team Description 08/31/2018 Office Visit SE Diabetic Education Yossi Potts, Elle ype 2 diabetes 2nd Floor RN mellitus with other [address] [facility] [address] [place] [address] SE complication, [place], [place] [phone] skilled nursing insulin use [phone] ([facility]) (Work) Social History Tobacco Use Types Packs/Day [...] Potts RN - 08/31/2018 9:00 AM CDT [facility] Patient Name: Marcial Adams Patient Identifier: [id number] Service Location: [facility] SE DIABETIC EDUCATION 2ND FLOOR [address] [facility] [address] Service Date: 08/31/2018 PATIENT EDUCATION- DIABETES VISIT LOCATION: [facility] REFERRING CLINICIAN: JOSE DE JESUS [...] Basal Calorie Needs: Race/Ethnicity: White/ Preferred Language: Jordanian PERTINENT LABS: Hemoglobin A1C Lab Results Component [...] Glucose Sensor: No Year of diabetes diagnosis: 2008 Previous diabetes education[place] [facility] Pt.Ed: 2014, 2017, 2018 NURSING DIAGNOSIS: Knowledge deficit- Related to [...] visit with a registered dietitian, here at [facility], to discuss her food choices [...] insulin adjustment, I will talk with the RN/outreach educator, once a week, until I am able to confidently do this myself or until my next visit with my e/m engineer. Patient reported achievement: Most of the time [...] with other spec ified complication, unspecified whether termite control technician insulin use (HCC) documented in this encounter Care Teams Sr Risk Management Consultant Relationship Specialty Start Date End Date Adriane Patel, APPLICATIONS ENGINEER, LUNG GUN OPERATOR PCP - General 09/22/17 07/06/19 100 [facility] [place] [address] documented as of this encounter
--- OUTSIDE RECORDS SUMMARY | 2022-01-21 14:06 | XMS_ITS | Encounter Summary ---
:[address] [facility] Address [address] [place] [address] Care Team Providers Name Role Phone Adriane Patel Ronak PROCESS SPECIALIST, SUPERVISOR PRINT LINE Primary Care Provider [phone] Reason for Referral Consultation (Routine) - Closed Specialty Diagnoses / Procedures Referred By Contact Refer red To Contact Endocrinology Diagnoses Type 2 diabetes mellitus with other specified complication, without long-term current use of insulin (HCC) Bacilio Stewart MBBS [address] [place] [address] Referral ID Status Reason Start Date Expiration Date Visits V isits Requested Authorized [id number] Closed Specialty 07/19/2018 07/20/2019 1 1 Services Required Scheduling Instructions Staff from this department will contact the patient to schedule an appointment. Reason for Visit Reason Onset Date Comments question 07/16/2018 Encounter Details Date Type Department Care Team Description 07/16/2018 Telephone Endocrinology Bacilio Stewart MBBS question [address] [facility] [address] [place] [address] [place] [address] (Wo rk) Social History Tobacco Use Types [...] 12/23/2018 organizations such as confucianist groups, unions, [employer] or athletic groups, or school groups? How [...] Primary documented in this encounter Care Teams Immigration Services Officer Relationship Specialty Start Date End Date Adriane Patel, PROCESS SPECIALIST, SUPERVISOR PRINT LINE PCP - General 09/22/17 07/06/19 100 [facility] [place]ARK [address] documented as of this encounter
--- OUTSIDE RECORDS SUMMARY | 2022-01-21 14:06 | XMS_ITS | Encounter Summary ---
:1945 Author Organization [facility] Address [address] [place] [address] Care Team Providers Name Role Phone Adriane Patel APRN, CNP Primary Care Provider [phone] Reason for Referral Consultation (Routine) - Closed Specialty Diagnoses / Procedures Referred By Contact Refer red To Contact Endocrinology Diagnoses Type 2 diabetes mellitus with hyperglycemia, without long-term current use of insulin (HCC) Adriane Patel APRN, CNP 100 [place] [address] Referral ID Status Reason Start Date Expiration Date Visits V isits Requested Authorized [id number] Closed Specialty 07/05/2018 07/06/2019 1 1 Services Required Scheduling Instructions Please call the Endocrinology Electrical Lineworker desk at [phone] to schedule an appointment. Encounter Details Date Type Department Care Team Description 07/05/2018 Orders Only [place] Adriane Patel, Type [address] LEONARD RESENDEZ mellitus with [address] hyperglycemia, [address] [place] [address] without long-term [phone] current use of insulin (HCC) (Primary Dx) [...] 12/23/2018 organizations such as hinduism groups, unions, [employer] or athletic groups, or school groups? [...] Primary documented in this encounter Care Teams Customer Success Advocate Relationship Specialty Start Date End Date Adriane Patel, TELETYPIST, BUSINESS ATTORNEY PCP - General 09/22/17 07/06/19 100 [facility] [place] [address] documented as of this encounter
--- OUTSIDE RECORDS SUMMARY | 2022-01-21 14:06 | XMS_ITS | Encounter Summary ---
:1945 Author Organization [facility] Address [address] [place] [address] Care Team Providers Name Role Phone Adriane Patel PRESSER MACHINE, CEMENTER MACHINE APPLICATOR Primary Care Provider Encounter Details Date Type Department Care Team Description 10/28/2018 Telephone [place] Adriane Patel, [address] PRESSER MACHINE, CEMENTER MACHINE APPLICATOR [place], [place] [address] [address] [facility] [address] [phone] [place], [place] [address] Social History Tobacco [...] Cold-no URI-no Dizziness-no Weakness-no Per Adriane Patel CEMENTER MACHINE APPLICATOR: We can see her tomorrow but if anything worsen's or changes that she needs to go straight to the ER or call 911. Marcial understood this plan of care and is alright with seeing us tomorrow. documented in this encounter Plan of Treatment Not on filedocumented as of this encounter Visit Diagnoses Not on filedocumented in this encounter Care Teams Wine Bottle Inspector Relationship Specialty Start Date End Date Adriane Patel APRN, CEMENTER MACHINE APPLICATOR PCP - General 09/22/17 07/06/[address] [place] [address] [place] [address] documented as of this encounter
--- OUTSIDE RECORDS SUMMARY | 2022-01-21 14:07 | XMS_ITS | Encounter Summary ---
:1945 Author Organization [facility] Address [address] [place] [address] Care Team Providers Name Role Phone Adriane Patel ASSEMBLY INSPECTOR, PSYCHOLOGIST RESEARCH ASSISTANT Primary Care Provider Reason for Visit Reason Onset Date Comments Referral 06/21/2018 Encounter Details Date Type Department Care Team Description 06/21/2018 Telephone [place] Adriane Patel, Referral [address] ASSEMBLY INSPECTOR, PSYCHOLOGIST RESEARCH ASSISTANT [place], [place] [address] [address] [facility] [address] [phone] [place], [place] [address] Social History Tobacco [...] 06/22/2018 8:40 AM CDT Please fax to [facility]. Telephone Encounter - Adriane Patel APRN, LEONARD [...] visit. She would like this done at [facility]. documented in this encounter Plan of Treatment Not on filedocumented as of this encounter Visit Diagnoses Not on filedocumented in this encounter Care Teams [place] Boatman Relationship Specialty Start Date End Date Adriane Patel, ASSEMBLY INSPECTOR, PSYCHOLOGIST RESEARCH ASSISTANT PCP - General 09/22/17 07/06/19 100 [facility] [place] [address] documented as of this encounter
--- OUTSIDE RECORDS SUMMARY | 2022-01-21 14:07 | XMS_ITS | Encounter Summary ---
:1945 Author Organization [facility] Address [address] [place] [address] Care Team Providers Name Role Phone Adriane Patel Ronak TURNAROUND ENGINEER, MARKETING ASSISTANT MANAGER Primary Care Provider [phone] Encounter Details Date Type Department Care Team Description 05/24/2018 Lab [place] Type 2 diabetes mellitus wit h other specified complication, without long-term current use of insulin (HCC); [address] Dysuria [place], [place] [address] Social History Tobacco Use [...] A1C 8.5 (H) 4.0 - 5.6 05/25/2018 [place] % A1C 1:[address] [facility] Comment: Reference Range 4.0-5.6% is [...] CDT 12:36 PM CDT Adriane Patel APRN, MARKETING ASSISTANT MANAGER LAB BLOOD ORDERABLES Performing Organization Address City/State/ZIP Code Phon e Number [facility] [address] [place], [place] [id number] Urine culture (05/24/2018 11:33 AM CDT) Patholo gist Method Time Signature Urine Culture No Growth 05/25/2018 [place] 1:20 PM T [facility] Specimen Anatomical Collection Method Collection Time Receive d Time (Source) Location / / Volume Laterality Urine, Clean 05/24/2018 11:33 05/25/2018 1:09 Catch AM CDT PM CDT Narrative [facility] - 10/2018 1:20 PM CDT Patient does not have an Amoxicillin or PCN allergy Sanam Darnell APRN, MARKETING ASSISTANT MANAGER LAB MICROBIOLOGY - GENERAL O RDERABLES Performing Organization Address City/State/ZIP Code Phon e Number [facility] [address] [place], [place] [id number] documented in this encounter Visit Diagnoses Diagnosis Type 2 diabetes mellitus with other spec ified complication, without long-term current use of insulin (HCC) Dysuria documented in this encounter Care Teams Picture Frame Maker Relationship Specialty Start Date End Date Adriane Patel APRN, MARKETING ASSISTANT MANAGER PCP - General 09/22/17 07/06/19 100 [facility] [place] STARK [address] documented as of this encounter
--- OUTSIDE RECORDS SUMMARY | 2022-01-21 14:07 | XMS_ITS | Encounter Summary ---
:1945 Author Organization [facility] Address [address] [place] [address] Care Team Providers Name Role Phone Adriane Patel Ronak SPRINKLER TENDER, FRAME PULLEY MORTISING MACHINE OPERATOR Primary Care Provider [phone] Reason for Visit Reason Comments UTI Encounter Details Date Type Department Care Team Description 04/27/2018 Office Visit [place]ie [place] DarnellSanam, Dysuria (Primary Dx); [address] SPRINKLER TENDER, FRAME PULLEY MORTISING MACHINE OPERATOR Type 2 diabetes mellitus wit h other specified complication, without long-term current use of insulin (HCC) [place], [place] [address] Social History Tobacco Use [...] in this encounter Progress Notes Sanam Darnell, FINISHING TRIMMER - 04/27/2018 3:00 PM CDT Estab Patient [...] Results Urine culture (05/24/2018 11:33 AM CDT) [facility] gist Method Time Signature Urine Culture No Growth 05/25/2018 [place] 1:20 PM T [facility] Specimen Anatomical Collection Method Collection Time Receive d Time (Source) Location / / Volume Laterality Urine, Clean 05/24/2018 11:33 05/25/2018 1:09 Catch AM CDT PM CDT Narrative [facility] - 10/2018 1:20 PM CDT Patient does not have an Amoxicillin or PCN allergy Sanam Darnell SPRINKLER TENDER, FRAME PULLEY MORTISING MACHINE OPERATOR LAB MICROBIOLOGY - GENERAL O RDERABLES Performing Organization Address City/State/ZIP Code Phon e Number [facility] [address] [place] [phone] (ABNORMAL) Urinalysis with reflex microscopic (clean catch) (04/27/2018 3:22 PM CDT) [facility] Method Time Signature Type CLEAN CATCH 04/27/2018 [facility] 3:39 PM CDT [place] Color, Urine STRAW YELLOW 04/27/2018 [facility] 3:39 PM CDT [place] Clarity, CLEAR CLEAR 04/27/2018 [facility] Urine 3:39 PM CDT [place] Glucose, NEGATIVE NEGATIVE 04/27/2018 [facility] Urine mg/dL 3:39 PM CDT [place] Bilirubin, NEGATIVE NEGATIVE 04/27/2018 [facility] Urine 3:39 PM CDT [place] Ketones, NEGATIVE NEGATIVE 04/27/2018 [facility] Urine mg/dL 3:39 PM CDT [place] Specific 1.025 1.000 04/27/2018 [facility] [place], ->=1.030 3:39 PM CDT [place] Urine Blood, Urine NEGATIVE NEGATIVE 04/27/2018 [facility] 3:39 PM CDT [place] pH, Urine 5.0 5.0 - 7.0 04/27/2018 [facility] 3:39 PM CDT [place] Protein, NEGATIVE NEGATIVE-TRA 04/27/2018 [facility] Urine CE mg/dL 3:39 PM CDT [place]ALL[place] Urobilinogen, 0.2 0.2 - 1.0 04/27/2018 [facility] Urine E.U./dL 3:39 PM CDT [place]ALL[place] Nitrite, NEGATIVE NEGATIVE 04/27/2018 [facility] Urine 3:39 PM CDT [place] Leukocytes, MODERATE (A) NEGATIVE 04/27/2018 [facility] Urine 3:39 PM CDT [place] Specimen Anatomical Collection Method Collection Time Receive d Time (Source) Location / / Volume Laterality Urine (Urine, 04/27/2018 3:22 PM 04/28/19 19 3:22 Clean Catch) CDT PM CDT Sanam Darnell APRN, FRAME PULLEY MORTISING MACHINE OPERATOR LAB URINE ORDERABLES Performing Organization Address City/State/ZIP Code Phon e Number [facility] [place] [address] [place] [address] documented in this encounter Visit Diagnoses Diagnosis Dysuria - Primary Type 2 diabetes mellitus with other spec ified complication, without long-term current use of insulin (HCC) Type 2 diabetes mellitus with other spec ified complication, without long-term current use of insulin (HCC) Dysuria documented in this encounter Care Teams Chyron Operator Relationship Specialty Start Date End Date Adriane Patel APRN, FRAME PULLEY MORTISING MACHINE OPERATOR PCP - General 09/22/17 07/06/19 100 [facility] [place] [address] documented as of this encounter
--- OUTSIDE RECORDS SUMMARY | 2022-01-21 14:07 | XMS_ITS | Encounter Summary ---
:1945 Author Organization [facility] Address [address] [place] [address] Care Team Providers Name Role Phone Adriane Patel HEMODIALYSIS LAB TECHNICIAN, CARE CONNECTOR Primary Care Provider [phone] Reason for Visit Reason Comments Med Refill Encounter Details Date Type Department Care Team Description 06/21/2018 Refill [place] Adriane Patel, Hypothyroidism, [address] HEMODIALYSIS LAB TECHNICIAN, CARE CONNECTOR unspecified type [place], [place] [address] (Primary Dx) [phone] [place], [place] [address] Social History Tobacco [...] ry documented in this encounter Care Teams Supervisor Gear Repair Relationship Specialty Start Date End Date Adriane Patel APRN, CARE CONNECTOR PCP - General 09/22/17 07/06/19 100 [facility] [place] [address] documented as of this encounter
--- OUTSIDE RECORDS SUMMARY | 2022-01-21 14:07 | XMS_ITS | Encounter Summary ---
:1945 Author Organization [facility] Address [address] [place] [address] Care Team Providers Name Role Phone Adriane Patel Ronak AVIATION ALL SOURCE INTELLIGENCE, TECHNICAL COMMUNICATOR Primary Care Provider [phone] Encounter Details Date Type Department Care Team Description 04/22/2018 Lab [place] Type 2 diabetes mellitus wit h complication, without long-term current use of insulin (HCC); [address] Dyspnea on exertion; [place], [place] [address] Subclinical hypothyroidism; [phone] Type 2 diabetes mellitus with other specified [...] Resu lts for this FILTRATION RATE AM PIPING MANAGER procedure ar e in the results section. CBC BRANCH OFFICE Routine 04/22/2018 10:33 Dyspnea on exertion Results for this W/DIFF AM PIPING MANAGER procedure are i n the results section. TROPONIN I Routine 04/22/2018 10:33 Dyspnea on exertion Resu lts for this AM PIPING MANAGER procedure are i n the results section. TSH Routine 04/22/2018 10:33 Subclinical Results for this AM PIPING MANAGER hypothyroidism procedure are in the results section. HEMOGLOBIN A1C Routine 04/22/2018 10:33 Type 2 diabetes Result s for this AM PIPING MANAGER mellitus with other procedur e are in specified the results complication, without sectio n. long-term current use of insulin (HCC) BASIC METABOLIC Routine 04/22/2018 10:33 Dyspnea on exertion R esults for this PANEL AM PIPING MANAGER procedure are i n the results section. documented in this encounter Results (ABNORMAL) Glomerular filtration rate (GFR) (04/22/2018 10:33 AM PIPING MANAGER) P athologist Signature GFR 49 (A) 04/22/2018 [facility] 12:40 PM [facility] 59 (A) 04/22/2018 [facility] Pakistani GFR 12:40 PM [facility] Comment: GFR calculated from serum creatinine v alue Chronic Kidney Disease less than 60 mL/m in/1.73 m2 Kidney Failure less than 15 mL/min/1.73 m2 Note: effective 07/01/06 IDMS-Traceable MDRD Study Equation used. Specimen Anatomical Collection Method Collection Time Receive d Time (Source) Location / / Volume Laterality 04/22/2018 10:33 04/22/2018 AM PIPING MANAGER 10:33 AM PIPING MANAGER Adriane Patel APRN, TECHNICAL COMMUNICATOR LAB BLOOD ORDERABLES Performing Organization Address City/State/ZIP Code Phon e Number [facility] [address] [place] [address] (ABNORMAL) Hemoglobin A1c (04/22/2018 10:33 AM PIPING MANAGER) Analysis Performed At Patho logist Time Signature Hemoglobin A1C 9.0 (H) 4.0 - 5.6 04/22/2018 [place] % A1C 7:27 PM [facility] Comment: [...] (Blood, 04/22/2018 10:33 04/22/2018 6:52 Venous) AM PIPING MANAGER PM PIPING MANAGER Adriane Patel APRN, CNP LAB BLOOD ORDERABLES Performing Organization Address [facility] Phon e Number [facility] [address] [place] [phone] TSH (04/22/2018 10:33 AM PIPING MANAGER) athologist Signature TSH, Sensitive 2.05 0.46 - 04/22/2018 [facility] 4.68 mIU/L 8:41 PM PIPING MANAGER CENTER LABORATORY Comment: The results from [...] (Blood, 04/22/2018 10:33 04/22/2018 6:52 Venous) AM PIPING MANAGER PM PIPING MANAGER Adriane Patel APRN, CNP LAB BLOOD ORDERABLES Performing Organization Address [facility] Phon e Number [facility] [address] [place] [address] (ABNORMAL) CBC Branch Off w/Diff (04/22/2018 10:33 AM PIPING MANAGER) [facility] Method Time Signature WBC 7.3 3.5 - 10.5 04/22/2018 [facility] K/uL 12:43 PM PIPING MANAGER [place] RBC 3.72 (L) 3.90 - 04/22/2018 [facility] 5.00 M/uL 12:43 PM PIPING MANAGER [place] Hemoglobin 11.0 (L) 12.0 - 04/22/2018 [facility] 15.5 g/dL 12:43 PM PIPING MANAGER [place] Hematocrit 33.7 (L) 35.0 - 04/22/2018 [facility] 44.0 % 12:43 PM PIPING MANAGER [place] Platelets 196 150 - 450 04/22/2018 [facility] K/uL 12:43 PM PIPING MANAGER [place] MCV 90.6 81.6 - 04/22/2018 [facility] 98.3 fL 12:43 PM PIPING MANAGER [place] MCH 29.6 26.0 - 04/22/2018 [facility] 32.0 pg 12:43 PM PIPING MANAGER [place] MCHC 32.6 32.0 - 04/22/2018 [facility] 36.0 g/dL 12:43 PM PIPING MANAGER [place] RDW 12.9 11.9 - 04/22/2018 [facility] 15.5 % 12:43 PM PIPING MANAGER [place] Lymphocytes % 14.7 (L) 18.0 - 04/22/2018 [facility] 45.0 % 12:43 PM PIPING MANAGER [place] Mid-size Cells 10.4 (H) 3.3 - 10.1 04/22/2018 [facility] % 12:43 PM PIPING MANAGER [place] Granulocytes/Jean Claude 74.9 (H) 45.8 - 04/22/2018 [facility] trophils 73.7 % 12:43 PM PIPING MANAGER [place] Lymphocytes 1.1 0.9 - 2.9 04/22/2018 [facility] Absolute K/uL 12:43 PM PIPING MANAGER [place] MIDS Absolute 0.8 0.2 - 0.8 04/22/2018 [facility] K/uL 12:43 PM PIPING MANAGER [place] Granulocytes/Jean Claude 5.4 2.1 - 8.7 04/22/2018 [facility] trophils K/uL 12:43 PM PIPING MANAGER [place] Absolute Specimen Anatomical Collection Method Collection Time Receive d Time (Source) Location / / Volume Laterality Blood (Blood, 04/22/2018 10:33 04/22/2018 Venous) AM PIPING MANAGER 12:38 PM PIPING MANAGER Adriane Patel APRN, TECHNICAL COMMUNICATOR LAB BLOOD ORDERABLES Performing Organization Address City/State/ZIP Code Phon e Number [facility] JAMES [facility] [address] [place] [address] (ABNORMAL) Basic metabolic panel (04/22/2018 10:33 AM PIPING MANAGER) P athologist Signature Sodium 141 135 - 145 04/22/2018 [facility] mmol/L 12:40 PM PIPING MANAGER [place] Potassium 3.5 3.5 - 5.1 04/22/2018 [facility] mmol/L 12:40 PM PIPING MANAGER [place] Comment: . Chloride 108 (H) 98 - 107 mmol/L 04/22/2018 12:40 PM PIPING MANAGER [facility] [place] Comment: . CO2 28 22 - 29 mmol/L 04/22/2018 12:40 PM PIPING MANAGER [facility] [place] Comment: . Creatinine 1.1 0.4 - 1.2 mg/dL 04/22/2018 12:40 PM PIPING MANAGER [facility] [place] Comment: . BUN 20 5 - 25 mg/dL 04/22/2018 12:40 PM PIPING MANAGER [facility] [place] Comment: . Glucose 204 (H) 70 - 100 mg/dL 04/22/2018 12:40 PM [facility] C [place] PIPING MANAGER Calcium, Total,S 9.4 8.4 - 10.2 mg/dL 04/22/2018 12:40 PM [facility] [place] PIPING MANAGER Comment: . Fasting? No 04/22/2018 12:38 PM PIPING MANAGER [facility] [place] Comment: 1+ lipemic Specimen Anatomical Collection Method Collection Time Receive d Time (Source) Location / / Volume Laterality Blood (Blood, 04/22/2018 10:33 04/22/2018 Venous) AM PIPING MANAGER 12:38 PM PIPING MANAGER Adriane Patel APRN, TECHNICAL COMMUNICATOR LAB BLOOD ORDERABLES Performing Organization Address City/State/ZIP Code Phon e Number [facility] JAMES [place] [address] [place] [address] Troponin I (04/22/2018 10:33 AM PIPING MANAGER) P athologist Signature Troponin I <0.012 0.012 - 04/22/2018 [facility] 0.034 ng/mL 7:24 PM PIPING MANAGER CENTER LAB[facility]ORY Comment: Note Reference Value [...] (Blood, 04/22/2018 10:33 04/22/2018 6:52 Venous) AM PIPING MANAGER PM PIPING MANAGER Adriane Patel AVIATION ALL SOURCE INTELLIGENCE, TECHNICAL COMMUNICATOR LAB BLOOD ORDERABLES Performing Organization Address City/State/ZIP Code Phon e Number [facility] [address] [place] [address] documented in this encounter Visit Diagnoses Diagnosis Type 2 diabetes mellitus with other spec ified complication, without long-term current use of insulin (HCC) Dyspnea on exertion Other dyspnea and respiratory abnormalit y Subclinical hypothyroidism Other specified acquired hypothyroidism documented in this encounter Care Teams Poultry Farm Worker Relationship Specialty Start Date End Date Adriane Patel APRN, TECHNICAL COMMUNICATOR PCP - General 09/22/17 07/06/19 100 [facility] [place] [address] documented as of this encounter
--- OUTSIDE RECORDS SUMMARY | 2022-01-21 14:07 | XMS_ITS | Encounter Summary ---
:1945 Author Organization [facility] Address [address] [place] [address] Care Team Providers Name Role Phone Adriane Patel ASSOCIATE PROFESSOR OF MEDIA ARTS, BOOKKEEPING ASSISTANT Primary Care Provider [phone] Reason for Visit Reason Comments Med Refill Encounter Details Date Type Department Care Team Description 06/22/2018 Refill [place] Adriane Patel, Anxiety (Primary Dx) [address] ASSOCIATE PROFESSOR OF MEDIA ARTS, BOOKKEEPING ASSISTANT [place], [place] [address] [address] [facility] [address] [phone] [place], [place] [address] Social History Tobacco [...] 06/24/2018 1:32 PM CDT Rx faxed to [facility] as requested. Telephone Encounter - Ana Cristina Prado MA - 06/24/2018 1:28 PM CDT Please fax to [facility]. Telephone Encounter - Adriane Patel APRN, CNP - 06/24/2018 1:27 PM CDT Please fax to [facility]. Thanks, Suresh Telephone Encounter - Margareth Sanchez RN - 06/24/2018 12:59 PM CDT Patient would like to use [facility] in Telephone Encounter - Luciana Albarado - 06/24/2018 12:06 PM CDT Pt stated there should be two refills coming through and she would prefer to have them filled at [facility]. Call Pt as necessary. Telephone Encounter - Adriane Patel APRN, CNP - 06/24/2018 9:39 AM CDT Please verify with the patient where she would like this faxed to, it appears that came from the [facility] as requested. Thanks Suresh Telephone Encounter [...] unspecified documented in this encounter Care Teams Project Technician Relationship Specialty Start Date End Date Adriane Patel APRN, BOOKKEEPING ASSISTANT PCP - General 09/22/17 07/06/19 [address] [place] [address] documented as of this encounter
--- OUTSIDE RECORDS SUMMARY | 2022-01-21 14:07 | XMS_ITS | Encounter Summary ---
:1945 Author Organization [facility] Address [address] [place] [address] Care Team Providers Name Role Phone Adriane Patel BOILER PLANT OPERATOR, BULB BRANDER Primary Care Provider [phone] Reason for Visit Reason Onset Date Comments EKG'S 04/22/2018 Encounter Details Date Type Department Care Team Description 04/22/2018 Telephone [place] Adriane Patel, EKG'S [address] BOILER PLANT OPERATOR, BULB BRANDER [place], [place] [address] [address] [facility] [address] [phone] [place], [place] [address] Social History Tobacco Use [...] EKGs printed and at the front end web designer for patient to package pick up, she is aware. HEMSTITCHING MACHINE OPERATOR Telephone Encounter - Luciana Verena - 04/22/2018 1:39 PM CST Pt called stating she is scheduled to see a boat captain at [facility] on Thursday04/26/18 andblase said they would like her last two EKG's, prior to her visit. Call Pt as necessary. HEMSTITCHING MACHINE OPERATOR documented in this encounter Plan of Treatment Not on filedocumented as of this encounter Visit Diagnoses Not on filedocumented in this encounter Care Teams Manual Lathe Operator Relationship Specialty Start Date End Date Adriane Patel APRN, BULB BRANDER PCP - General 09/22/17 07/06/[address] [place] [address] [place] [address] documented as of this encounter
--- OUTSIDE RECORDS SUMMARY | 2022-01-21 14:07 | XMS_ITS | Encounter Summary ---
:1945 Author Organization [facility] Address [address] [place] [address] Care Team Providers Name Role Phone Adriane Patel APRN, LEONARD Primary Care Provider [phone] Reason for Visit Reason Comments Follow-up Diabetes Encounter Details Date Type Department Care Team Description 04/01/2018 Office Visit [place] Adriane Patel Type 2 diabetes mellitus wit h other specified complication, without long-term current use of insulin (HCC) (Primary Dx); [address] M, LEONARD RESENDEZ Weak urinary stream [place], [place] [address] [facility] [address] [address] [place] [address] Social History Tobacco Use Types Packs/Day Years [...] Comments Blood Pressure 128/84 04/01/2018 10:33 AM REPAIRER SHOE STICKS Pulse 88 04/01/2018 10:33 AM REPAIRER SHOE STICKS Temperature 35.9 ??C (96.6 ??F) 04/01/2018 10:33 AM REPAIRER SHOE STICKS Respiratory Rate 16 04/01/2018 10:33 AM REPAIRER SHOE STICKS Oxygen Saturation 97% 04/01/2018 10:33 AM REPAIRER SHOE STICKS Inhaled Oxygen Concentration - - Weight 81.4 kg (179 lb 7.3 oz) 04/01/2018 10:33 AM REPAIRER SHOE STICKS Height 157.5 cm (5' 2) 04/01/2018 10:33 AM REPAIRER SHOE STICKS Body Mass Index 32.82 04/01/2018 10:33 AM REPAIRER SHOE STICKS documented in this encounter Patient Instructions Patient InstructionsChgarfield Patel APRN, CNP - 04/01/2018 10:20 AM REPAIRER SHOE STICKS Glipizide 10 mg twice daily Lisinopril 2.5 mg daily IRER SHOE STICKS documented in this encounter Progress Notes Adriane [...] control of her symptoms, managed by her cripple cutter. The patient???s hemoglobin A1c on 02/15/2018 was [...] she is due for labs for her cripple cutter. ROS: GENITOURINARY: See HPI. The patient reports [...] is currently under the care of a cripple cutter, with stable medication and good control of [...] plan of care. Adriane Patel APRN, LEONARD IRER SHOE STICKS documented in this encounter Plan of Treatment Not on filedocumented as of this encounter Results (ABNORMAL) Urine culture (clean catch) (04/01/2018 11:39 AM REPAIRER SHOE STICKS) [facility] Method Time Signature Urine Culture Escherichia coli 04/03/2018 [facility] >100,000 cfu/ml 8:14 AM REPAIRER SHOE STICKS [facility] Specimen Anatomical Collection Method Collection Time Receive d Time (Source) Location / / Volume Laterality Urine, Clean 04/01/2018 11:39 04/02/2018 Catch AM REPAIRER SHOE STICKS 12:50 PM REPAIRER SHOE STICKS Narrative [facility] - 03/19 8:14 AM REPAIRER SHOE STICKS Patient does not have an Amoxicillin or [...] Trimeth/Sulfa <=2/38 mcg/mL: Susceptible Adriane Patel APRN, SOFT SHOE DANCER LAB MICROBIOLOGY - GENERA L ORDERABLES Performing Organization Address City/State/ZIP Code Phon e Number [facility] [address] [place] [address] (ABNORMAL) Urinalysis with reflex microscopic (clean catch) (04/01/2018 11:39 AM REPAIRER SHOE STICKS) [facility] Method Time Signature Type COLLECTION HAT 04/01/2018 [facility] 11:52 AM [place] REPAIRER SHOE STICKS Color, Urine STRAW YELLOW 04/01/2018 [facility] 11:52 AM [place] REPAIRER SHOE STICKS Clarity, HAZY (A) CLEAR 04/01/2018 [facility] Urine 11:52 AM [place] REPAIRER SHOE STICKS Glucose, 100 (A) NEGATIVE 04/01/2018 [facility] Urine mg/dL 11:52 AM [place] REPAIRER SHOE STICKS Bilirubin, NEGATIVE NEGATIVE 04/01/2018 [facility] Urine 11:52 AM [place] REPAIRER SHOE STICKS Ketones, NEGATIVE NEGATIVE 04/01/2018 [facility] Urine mg/dL 11:52 AM [place] REPAIRER SHOE STICKS Specific 1.020 1.000 04/01/2018 [facility] [place], ->=1.030 11:52 AM FALLS Urine REPAIRER SHOE STICKS Blood, Urine NEGATIVE NEGATIVE 04/01/2018 [facility] 11:52 AM [place] REPAIRER SHOE STICKS pH, Urine 5.0 5.0 - 7.0 04/01/2018 [facility] 11:52 AM [place] REPAIRER SHOE STICKS Protein, NEGATIVE NEGATIVE-TRA 04/01/2018 [facility] Urine CE mg/dL 11:52 AM [place] REPAIRER SHOE STICKS Urobilinogen, 0.2 0.2 - 1.0 04/01/2018 [facility] Urine E.U./dL 11:52 AM [place] REPAIRER SHOE STICKS Nitrite, NEGATIVE NEGATIVE 04/01/2018 [facility] Urine 11:52 AM [place] REPAIRER SHOE STICKS Leukocytes, MODERATE (A) NEGATIVE 04/01/2018 [facility] Urine 11:52 AM [place] REPAIRER SHOE STICKS Specimen Anatomical Collection Method Collection Time Receive d Time (Source) Location / / Volume Laterality Urine (Urine, 04/01/2018 11:39 04/01/2018 Clean Catch) AM REPAIRER SHOE STICKS 11:40 AM REPAIRER SHOE STICKS Adriane Patel APRN, LEONARD LAB URINE ORDERABLES Performing Organization Address City/State/ZIP Code Phon e Number [facility] JAMES CUELLAR [address] [place] [address] documented in this encounter Visit Diagnoses Diagnosis Type 2 diabetes mellitus with other spec ified complication, without long-term current use of insulin (HCC) - Primary Weak urinary stream Slowing of urinary stream Weak urinary stream Slowing of urinary stream documented in this encounter Care Teams Hydro Sprayer Operator Relationship Specialty Start Date End Date Adriane Patel APRN, SOFT SHOE DANCER PCP - General 09/22/17 07/06/19 100 [facility] [place] [address] documented as of this encounter
--- OUTSIDE RECORDS SUMMARY | 2022-01-21 14:07 | XMS_ITS | Encounter Summary ---
:1945 Author Organization [facility] Address [address] [place] [address] Care Team Providers Name Role Phone Adriane Patel GENERAL MAINTENANCE MECHANIC, TRUST ADVISOR Primary Care Provider [phone] Reason for Visit Reason Onset Date Comments UTI 04/27/2018 Encounter Details Date Type Department Care Team Description 04/27/2018 Telephone [place] Adriane Patel, UTI [address] GENERAL MAINTENANCE MECHANIC, TRUST ADVISOR [place], [place] [address] [address] [facility] [address] [phone] [place], [place] [address] Social History Tobacco Use [...] filedocumented in this encounter Care Teams Rn Case Management Relationship Specialty Start Date End Date Adriane Patel, GENERAL MAINTENANCE MECHANIC, TRUST ADVISOR PCP - General 09/22/17 07/06/19 [address] [facility] [place] [address] documented as of this encounter
--- OUTSIDE RECORDS SUMMARY | 2022-01-21 14:07 | XMS_ITS | Encounter Summary ---
:1945 Author Organization [facility] Address [address] [place] [address] Care Team Providers Name Role Phone Jorge Adriane Simons APRN, BLADE GROOVER Primary Care Provider [phone] Encounter Details Date Type Department Care Team Description 04/27/2018 Lab [place] Dysuria [address] [place], [place] [address] Social History Tobacco Use [...] (ABNORMAL) Urinalysis-Microscopic Exam (04/27/2018 3:22 PM CDT) [facility] Method Time Signature Casts, urine NONE SEEN 0-2 Hyaline 04/27/2018 [facility] /lpf 3:40 PM CDT [place] Significant NONE SEEN None Seen 04/27/2018 [facility] casts, urine /lpf 3:40 PM [facility]T [place] RBC, Urine 4-10 (A) 0 - 3 /hpf 04/27/2018 [facility] 3:40 PM [facility]T [place] WBC, Urine 4-10 /hpf 04/27/2018 [facility] 3:40 PM [facility] [place] Comment: Male Ref Range ? 0-3/hpf Female Ref Range ?? 0-10/hpf Squamous Epithelial, FEW Few /lpf 04/27/2018 3:40 PM [facility] [place] Urine CDT Trans Epithelial, NONE SEEN 0 - 3 /hpf 04/27/2018 3:40 PM [facility] [place] Urine CDT Renal Tubular Cells, NONE SEEN 0 - 1 /hpf 04/27/2018 3:40 PM [facility] [place] Urine CDT Bacteria, Urine 1+ (A) None Seen /hpf 04/27/2018 3:40 PM [facility] [place] CDT Specimen Anatomical Collection Method Collection Time Receive d Time (Source) Location / / Volume Laterality 04/27/2018 3:22 PM 9 3:22 CDT PM CDT Sanam Darnell APRN, BLADE GROOVER LAB URINE ORDERABLES Performing Organization Address City/State/ZIP Code Phon e Number [facility] [place] [address] [place] [address] (ABNORMAL) Urinalysis with reflex microscopic (clean catch) (04/27/2018 3:22 PM CDT) [facility] Method Time Signature Type CLEAN CATCH 04/27/2018 [facility] 3:39 PM CDT [place] Color, Urine STRAW YELLOW 04/27/2018 [facility] 3:39 PM [facility] [place] Clarity, CLEAR CLEAR 04/27/2018 [facility] Urine 3:39 PM CDT [place] Glucose, NEGATIVE NEGATIVE 04/27/2018 [facility] Urine mg/dL 3:39 PM CDT [place] Bilirubin, NEGATIVE NEGATIVE 04/27/2018 [facility] Urine 3:39 PM CDT [place] Ketones, NEGATIVE NEGATIVE 04/27/2018 [facility] Urine mg/dL 3:39 PM CDT [place] Specific 1.025 1.000 04/27/2018 [facility] [place], ->=1.030 3:39 PM CDT [place] Urine Blood, Urine NEGATIVE NEGATIVE 04/27/2018 [facility] 3:39 PM [facility]T [place] pH, Urine 5.0 5.0 - 7.0 04/27/2018 [facility] 3:39 PM CDT [place] Protein, NEGATIVE NEGATIVE-TRA 04/27/2018 [facility] Urine CE mg/dL 3:39 PM CDT [place] Urobilinogen, 0.2 0.2 - 1.0 04/27/2018 [facility] Urine E.U./dL 3:39 PM CDT [place] [...] [facility] [facility] [place] [address] [place] [address] documented in this encounter Visit Diagnoses Diagnosis Dysuria documented in this encounter Care Teams Rice Dryer Mechanic Relationship Specialty Start Date End Date Adriane Patel APRN, BLADE GROOVER PCP - General 09/22/17 07/06/19 100 [facility] [place] [address] documented as of this encounter
--- OUTSIDE RECORDS SUMMARY | 2022-01-21 14:07 | XMS_ITS | Encounter Summary ---
:1945 Author Organization [facility] Address [address] [place] [address] Care Team Providers Name Role Phone Adriane Patel SUCTION PLATE CARRIER CLEANER, FOREIGN STUDENT ADVISER Primary Care Provider [phone] Reason for Visit Reason Onset Date Comments Coding 04/08/2018 Encounter Details Date Type Department Care Team Description 04/08/2018 Telephone [place] Adriane Patel, Coding [address] SUCTION PLATE CARRIER CLEANER, FOREIGN STUDENT ADVISER [place], [place] [address] [address] [facility] [address] [phone] [place], [place] [address] Social History Tobacco Use [...] - 04/09/2018 1:00 PM CST Patient informed TMENT SUPERVISOR Telephone Encounter - Margareth Sanchez RN - 04/09/2018 9:38 AM CST I spoke to billing department who said the patient called 2 weeks ago and this was already changed and is back with insurance. According to billing this has been taken care of. TMENT SUPERVISOR Telephone Encounter - Adriane Patel APRN, FOREIGN STUDENT ADVISER - 04/08/2018 2:52 PM TREATMENT SUPERVISOR This medication review, unsure where billing go preventative? Please check with billing/coding. Thanks, Suresh TMENT SUPERVISOR Telephone Encounter - Margareth Sanchez RN - 04/08/2018 2:46 PM CST Please review and let me know what you'd like me to talk about with coding. TMENT SUPERVISOR Telephone Encounter - Phoebe Donohue - 04/08/2018 2:28 PM CST Patient received a bill from February 19 visit. She was here for a med review. Apparently it was billed as a preventative and not office visit. She is wondering if this can be changed. Please advise. TMENT SUPERVISOR documented in this encounter Plan of Treatment Not on filedocumented as of this encounter Visit Diagnoses Not on filedocumented in this encounter Care Teams Teacher Specialist Relationship Specialty Start Date End Date Adriane Patel APRN, FOREIGN STUDENT ADVISER PCP - General 09/22/17 07/06/19 100 [facility] [place] [address] documented as of this encounter
--- OUTSIDE RECORDS SUMMARY | 2022-01-21 14:07 | XMS_ITS | Encounter Summary ---
:1945 Author Organization [facility] Address [address] [place] [address] Care Team Providers Name Role Phone Adriane Patel BOWLING FLOOR DESK CLERK, APPRAISER PERSONAL PROPERTY Primary Care Provider [phone] Reason for Visit Reason Comments Med Refill Encounter Details Date Type Department Care Team Description 06/30/2018 Refill [place] Adriane Patel, Type 2 diabetes [address] BOWLING FLOOR DESK CLERK, APPRAISER PERSONAL PROPERTY mellitus with other [employer], [place] [address] specified complication, [place], [place] [address] without long-term current use [...] documented in this encounter Care Teams Supervisor Cell Efficiency Relationship Specialty Start Date End Date Adriane Patel, BOWLING FLOOR DESK CLERK, APPRAISER PERSONAL PROPERTY PCP - General 09/22/17 07/06/19 100 [facility] [place] [address] documented as of this encounter
--- OUTSIDE RECORDS SUMMARY | 2022-01-21 14:07 | XMS_ITS | Encounter Summary ---
:1945 Author Organization [facility] Address [address] [place] [address] Care Team Providers Name Role Phone Adriane Patel APRN, CNP Primary Care Provider [phone] Reason for Referral Consultation (Routine) - Closed Specialty Diagnoses / Procedures Referred By Contact Refer red To Contact Diagnoses Left groin mass Adriane Patel, [facility] [place] [address] [address] [place] [address] Phone: Fax: Referral ID Status Reason Start Date Expiration Date Visits Requ ested Visits Authorized [id number] Closed 06/22/2018 06/23/2019 1 1 Encounter Details Date Type Department Care Team Description 06/22/2018 Orders Only [place] Adriane Patel, Left groin mass [address] LEONARD RESENDEZ (Primary Dx) [place], [place] [address] [facility] [address] [address] [place] [address] Social History Tobacco Use Types Packs/Day Years [...] 12/23/2018 organizations such as confucianism groups, unions, [employer] or athletic groups, or school groups? How [...] Primary documented in this encounter Care Teams Painter Spray Relationship Specialty Start Date End Date Adriane Patel APRN, TOW TRUCK DISPATCHER PCP - General 09/22/17 07/06/[address] [place] [address] [place] [address] documented as of this encounter
--- OUTSIDE RECORDS SUMMARY | 2022-01-21 14:07 | XMS_ITS | Encounter Summary ---
:1945 Author Organization [facility] Address [address] [place] [address] Care Team Providers Name Role Phone Adriane Patel BODYWORK THERAPIST, BAR CAPTAIN Primary Care Provider [phone] Encounter Details Date Type Department Care Team Description 04/20/2018 Telephone [place] Adriane Patel, [address] BODYWORK THERAPIST, BAR CAPTAIN [place], [place] [address] [address] [facility] [address] [phone] [place], [place] [address] Social History Tobacco Use [...] - 04/20/2018 8:37 AM CST Order faxed. NG ROOM WORKER Telephone Encounter - Margareth Sanchez RN - 04/20/2018 8:20 AM CST Please fax cologuard order with face sheet to the number listed on the form. NG ROOM WORKER documented in this encounter Plan of Treatment Not on filedocumented as of this encounter Visit Diagnoses Not on filedocumented in this encounter Care Teams Trombone Slide Assembler Relationship Specialty Start Date End Date Adriane Patel APRN, BAR CAPTAIN PCP - General 09/22/17 07/06/[address] [place] [address] [place] [address] documented as of this encounter
--- OUTSIDE RECORDS SUMMARY | 2022-01-21 14:07 | XMS_ITS | Encounter Summary ---
:1945 Author Organization [facility] Address [address] [place] [address] Care Team Providers Name Role Phone Adriane Patel UPPER DOUBLER, SPANNER OPERATOR Primary Care Provider [phone] Encounter Details Date Type Department Care Team Description 05/12/2018 Orders Only [place] Adriane Patel, Type 2 diabetes [address] UPPER DOUBLER, SPANNER OPERATOR mellitus with other [place], [place] [address] specified [address] [place] [address] complication, without [phone] long-ter m current use of insulin (HCC [...] A1C 8.5 (H) 4.0 - 5.6 05/25/2018 [place] % A1C 1:14 PM CDT [facility] Comment: Reference [...] CDT 12:36 PM CDT Adriane Patel APRN, SPANNER OPERATOR LAB BLOOD ORDERABLES Performing Organization Address City/State/ZIP Code Phon e Number [facility] [address] [place] [address] Cologuard (05/12/2018 5:00 AM CDT) [facility] Method Time Signature Cologuard Negative Not Applicable EXACT result Jigsaw Comment: A negative result indicates a low [...] et al, N Eng l J Med 2014;370(14):2811-6947) ?? COLOG UARD RE-SCREENING RECOMMENDATION: Periodic routine colorectal cancer screening is an important part of preventive healthcare for asymptomatic persons at average r isk for colorectal cancer. ??Following a negative Cologuard result, the [employer] Cancer Society and U.S. Multi-Society Task Force screening guidelines recommend a Cologuard re-screening interval of 3 years. ??References: [place] Cance r Society (ACS). Colorectal cancer prevention and early detection. [place], [place]: [place] [employer] Society; [updated 2015Jun 09]. https://www.cancer.org/cancer/colo t-cucinn-xiwjio/nwizcfjhm-iawyjnfwz-mefq ing/acs-recommendations.html. Accessed October 16, 2017; Johnnie MAJANO, [place] KING, Jasper MurrayK, Colorectal Cancer Screening: Recommendations for Physicians and Patients f rom the U.S. Multi-Society Task Force on Colorectal Cancer Screening, Am J Gastroenterology 2017; 112:6367-5090. Test Type: Composite algorithmic analysi s of [...] can be accessed at the following location: www.People [employer]/results. ??Additional description of the Cologuard test process, warnings and precautions can be found at www.cologuardtest.com. Rx Only. [facility], [address] [place] [address], [address], [place], [address], , Clinical Laboratory Slurry Man, Luciana Dodge, Ph.D., [facility], CLIA NO: [id number] Specimen Anatomical Collection Method Collection Time Receive d Time (Source) Location / / Volume Laterality 05/12/2018 5:00 AM 9 3:30 CDT PM CDT Adriane Patel APRN, LEONARD LAB BODY FLUIDS AND STOOL S ORDERABLES Performing Organization Address City/State/ZIP Code Phon e Number [facility], [address] [place] [address] [facility] [address] documented in this encounter Visit Diagnoses Diagnosis Type 2 diabetes mellitus with other spec ified complication, without long-term current use of insulin (HCC) - Primary documented in this encounter Care Teams Information Strategist Relationship Specialty Start Date End Date Adriane Patel APRN, SPANNER OPERATOR PCP - General 09/22/17 07/06/19 100 [facility] [place] [address] documented as of this encounter
--- OUTSIDE RECORDS SUMMARY | 2022-01-21 14:07 | XMS_ITS | Encounter Summary ---
:[address] [facility] Address [address] [place] [address] Care Team Providers Name Role Phone Adriane Patel TRIAL LAWYER, PEDIATRIC DIETICIAN Primary Care Provider [phone] Reason for Visit Reason Onset Date Comments LAB RESULT QUESTIONS 05/03/2018 Encounter Details Date Type Department Care Team Description 05/03/2018 Telephone [place] Adriane Patel, LAB RESULT QUESTIONS [address] TRIAL LAWYER, PEDIATRIC DIETICIAN [place], [place] [address] [address] [facility] [address] [phone] [place], [place] [address] Social History Tobacco Use [...] informed Telephone Encounter - Adriane Patel APRN, LEONARD - 05/12/2018 12:46 PM CDT These are [...] on filedocumented in this encounter Care Teams Drive In Theater Attendant Relationship Specialty Start Date End Date Adriane Patel APRN, PEDIATRIC DIETICIAN PCP - General 09/22/17 07/06/19 100 [place] [address] documented as of this encounter
--- OUTSIDE RECORDS SUMMARY | 2022-01-21 14:07 | XMS_ITS | Encounter Summary ---
:1945 Author Organization [facility] Address [address] [place] [address] Care Team Providers Name Role Phone Adriane Patel PROFESSOR OF GEOLOGY, TRACTOR MECHANIC HELPER Primary Care Provider [phone] Encounter Details Date Type Department Care Team Description 04/03/2018 Orders Only [place] Adriane Patel, Urinary tract [address] PROFESSOR OF GEOLOGY, TRACTOR MECHANIC HELPER infection without [place], [place] [address] hematuria, site [address] [place] [address] unspecified (Primary [phone] Dx) Social History Tobacco Use Types Packs/Day [...] Primary documented in this encounter Care Teams Composition Roll Maker And Cutter Relationship Specialty Start Date End Date Adriane Patel, MAL, TRACTOR MECHANIC HELPER PCP - General 09/22/17 07/06/19 100 [facility] [place] [address] documented as of this encounter
--- OUTSIDE RECORDS SUMMARY | 2022-01-21 14:07 | XMS_ITS | Encounter Summary ---
:1945 Author Organization [facility] Address [address] [place] [address] Care Team Providers Name Role Phone Adriane Patel PROFESSOR OF PHYSICS, SHAREPOINT CONSULTANT Primary Care Provider [phone] Encounter Details Date Type Department Care Team Description 04/08/2018 Orders Only [place] Ardiane Patel Subclinical hypothyroidism ( Primary Dx); [address] M, PROFESSOR OF PHYSICS, SHAREPOINT CONSULTANT Type 2 diabetes mellitus with other spec ified complication, without long-term current use of insulin (HCC) [place], [place] [address] [address] [place] [address] Social History Tobacco Use Types Packs/Day Years [...] A1c in April along with a TSH. ING MACHINE OPERATOR documented in this encounter Plan of Treatment Not on filedocumented as of this encounter Results TSH (04/22/2018 10:33 AM BINDING MACHINE OPERATOR) P athologist Signature TSH, Sensitive 2.05 0.46 - 04/22/2018 [facility] 4.68 mIU/L 8:41 PM BINDING MACHINE OPERATOR CENTER LAB[facility]ATORY Comment: The results from this [...] (Blood, 04/22/2018 10:33 04/22/2018 6:52 Venous) AM BINDING MACHINE OPERATOR PM BINDING MACHINE OPERATOR Adriane Patel APRN, CNP LAB BLOOD ORDERABLES Performing Organization Address City/State/ZIP Code Phon e Number [facility] [address] [place] [address] (ABNORMAL) Hemoglobin A1c (04/22/2018 10:33 AM BINDING MACHINE OPERATOR) Analysis Performed At Patho logist Time Signature Hemoglobin A1C 9.0 (H) 4.0 - 5.6 04/22/2018 [place]IS % A1C 7:27 PM [facility] Comment: Reference Range [...] (Blood, 04/22/2018 10:33 04/22/2018 6:52 Venous) AM BINDING MACHINE OPERATOR PM BINDING MACHINE OPERATOR Adriane Patel APRN, SHAREPOINT CONSULTANT LAB BLOOD ORDERABLES Performing Organization Address City/State/ZIP Code Phon e Number [facility] [address] [place] [address] documented in this encounter Visit Diagnoses Diagnosis Subclinical hypothyroidism - Primary Other specified acquired hypothyroidism Type 2 diabetes mellitus with other spec ified complication, without long-term current use of insulin (HCC) documented in this encounter Care Teams Returning Officer Relationship Specialty Start Date End Date Adriane Patel APRN, SHAREPOINT CONSULTANT PCP - General 09/22/17 07/06/19 100 [place] [address] documented as of this encounter
--- OUTSIDE RECORDS SUMMARY | 2022-01-21 14:07 | XMS_ITS | Encounter Summary ---
:1945 Author Organization [facility] Address [address] [place] [address] Care Team Providers Name Role Phone Adriane Patel APRN, LEONARD Primary Care Provider [phone] Reason for Visit Reason Comments Medication Visit Shortness of Breath Encounter Details Date Type Department Care Team Description 04/22/2018 Office Visit [facility] Adriane Patel Type 2 diabetes mellitus wit hout complication, without long- term current use of insulin (HCC) (Primary Dx); [address] M, LEONARD RESENDEZ Dyspnea on exertion; [place], [place] [address] Hyperlipidemia, unspecified hyperlipidem ia type [address] [place], [place] [phone] [id number] Social History Tobacco Use Types Packs/Day Years [...] Comments Blood Pressure 122/80 04/22/2018 9:34 AM HEALTH PROFESSOR Pulse 81 04/22/2018 9:34 AM HEALTH PROFESSOR Temperature 36.3 ??C (97.4 ??F) 04/22/2018 9:34 AM HEALTH PROFESSOR Respiratory Rate 16 04/22/2018 9:34 AM HEALTH PROFESSOR Oxygen Saturation 99% 04/22/2018 9:34 AM HEALTH PROFESSOR Inhaled Oxygen Concentration - - Weight 81.9 kg (180 lb 8.9 oz) 04/22/2018 9:34 AM HEALTH PROFESSOR Height 161 cm (5' 3.39) 04/22/2018 9:34 AM HEALTH PROFESSOR Body Mass Index 31.6 04/22/2018 9:34 AM HEALTH PROFESSOR documented in this encounter Patient Instructions Patient InstructionsChgarfield Patel APRN, CNP - 04/22/2018 9:20 AM HEALTH PROFESSOR Crestor 2.5 mg daily Call schedule cardiology appointment Januvia 50 mg daily in addition to Glipizide 10 mg twice daily Baby aspirin TH PROFESSOR documented in this encounter Progress Notes Adriane [...] bilaterally, when she was walking to her [employer] [place], [place] in [...] previously prescried. The patient has an established adobe cq developer, through the [facility], and recommend she call and schedule an [...] Dyspnea on exertion R esults for this HEALTH PROFESSOR procedure are i n the results section. XR CHEST 2 VIEWS Routine 04/22/2018 10:53 AM Dyspnea on exerti on Results for this HEALTH PROFESSOR procedure are i n the results section. documented in this encounter Results ECG 12 lead (04/22/2018 11:00 AM HEALTH PROFESSOR) Specimen (Source) Anatomical Collection Method Collection Time Re ceived Time Location / / Volume Laterality 04/22/2018 11:00 AM HEALTH PROFESSOR Narrative 04/22/2018 12:00 AM HEALTH PROFESSOR This result has an attachment that is no t available. EKG performed in clinic. Patient tolerat ed well. Paper copy sent for interpretation. Adriane Patel APRN, LEONARD ECG ORDERABLES X-ray Chest 2 Views (04/22/2018 10:53 AM HEALTH PROFESSOR) Anatomical Region Laterality Modality Body Radiographic Imaging Specimen (Source) Anatomical Collection Method Collection Time Re ceived Time Location / / Volume Laterality 04/22/2018 10:53 AM HEALTH PROFESSOR Impressions 04/22/2018 11:04 AM HEALTH PROFESSOR IMPRESSION: No acute abnormality. Narrative 04/22/2018 11:04 AM HEALTH PROFESSOR INDICATION: dyspnea with extertion COMPARISON: Chest x-ray [...] shoulder. IMPRESSION: No acute abnormality. Adriane Patel RECEPTIONIST SCHEDULER, NURSING SPECIALIST IMG XR PROCEDURES Troponin I (04/22/2018 10:33 AM HEALTH PROFESSOR) athologist Signature Troponin I <0.012 0.012 - 04/22/2018 [facility] 0.034 ng/mL 7:24 PM HEALTH PROFESSOR [facility] Comment: Note Reference Value Range [...] (Blood, 04/22/2018 10:33 04/22/2018 6:52 Venous) AM HEALTH PROFESSOR PM HEALTH PROFESSOR Adriane Patel APRN, LEONARD LAB BLOOD ORDERABLES Performing Organization Address City/State/ZIP Code Phon e Number [facility] [address] [place] [address] (ABNORMAL) Basic metabolic panel (04/22/2018 10:33 AM HEALTH PROFESSOR) P athologist Signature Sodium 141 135 - 145 04/22/2018 [facility] mmol/L 12:40 PM HEALTH PROFESSOR [place] Potassium 3.5 3.5 - 5.1 04/22/2018 [facility] mmol/L 12:40 PM HEALTH PROFESSOR [place] Comment: . Chloride 108 (H) 98 - 107 mmol/L 04/22/2018 12:40 PM HEALTH PROFESSOR [facility] [place] [place] Comment: . CO2 28 22 - 29 mmol/L 04/22/2018 12:40 PM HEALTH PROFESSOR [facility] [place] Comment: . Creatinine 1.1 0.4 - 1.2 mg/dL 04/22/2018 12:40 PM HEALTH PROFESSOR [facility] [place] [place] Comment: . BUN 20 5 - 25 mg/dL 04/22/2018 12:40 PM HEALTH PROFESSOR [facility] [place] Comment: . Glucose 204 (H) 70 - 100 mg/dL 04/22/2018 12:40 PM [facility] [place] HEALTH PROFESSOR Calcium, Total,S 9.4 8.4 - 10.2 mg/dL 04/22/2018 12:40 PM [facility] [place] [place] HEALTH PROFESSOR Comment: . Fasting? No 04/22/2018 12:38 PM HEALTH PROFESSOR [facility] [place] Comment: 1+ lipemic Specimen Anatomical Collection Method Collection Time Receive d Time (Source) Location / / Volume Laterality Blood (Blood, 04/22/2018 10:33 04/22/2018 Venous) AM HEALTH PROFESSOR 12:38 PM HEALTH PROFESSOR Adriane M Patel RECEPTIONIST SCHEDULER, NURSING SPECIALIST LAB BLOOD ORDERABLES Performing Organization Address City/State/ZIP Code Phon e Number [facility] [place] [address] [place] [address] (ABNORMAL) CBC Branch Off w/Diff (04/22/2018 10:33 AM HEALTH PROFESSOR) [facility] Method Time Signature WBC 7.3 3.5 - 10.5 04/22/2018 [facility] K/uL 12:43 PM HEALTH PROFESSOR [place] RBC 3.72 (L) 3.90 - 04/22/2018 [facility] 5.00 M/uL 12:43 PM HEALTH PROFESSOR [place] Hemoglobin 11.0 (L) 12.0 - 04/22/2018 [facility] 15.5 g/dL 12:43 PM HEALTH PROFESSOR [place] Hematocrit 33.7 (L) 35.0 - 04/22/2018 [facility] 44.0 % 12:43 PM HEALTH PROFESSOR [place] Platelets 196 150 - 450 04/22/2018 [facility] K/uL 12:43 PM HEALTH PROFESSOR [place] MCV 90.6 81.6 - 04/22/2018 [facility] 98.3 fL 12:43 PM HEALTH PROFESSOR [place] MCH 29.6 26.0 - 04/22/2018 [facility] [place] 32.0 pg 12:43 PM HEALTH PROFESSOR [place] MCHC 32.6 32.0 - 04/22/2018 [facility] 36.0 g/dL 12:43 PM HEALTH PROFESSOR [place] RDW 12.9 11.9 - 04/22/2018 [facility] 15.5 % 12:43 PM HEALTH PROFESSOR [place] Lymphocytes % 14.7 (L) 18.0 - 04/22/2018 [facility] [place] 45.0 % 12:43 PM HEALTH PROFESSOR [place] Mid-size Cells 10.4 (H) 3.3 - 10.1 04/22/2018 [facility] [place] % 12:43 PM HEALTH PROFESSOR [place] Granulocytes/Jean Claude 74.9 (H) 45.8 - 04/22/2018 [facility] trophils 73.7 % 12:43 PM HEALTH PROFESSOR [place] Lymphocytes 1.1 0.9 - 2.9 04/22/2018 [facility] Absolute K/uL 12:43 PM HEALTH PROFESSOR [place] MIDS Absolute 0.8 0.2 - 0.8 04/22/2018 [facility] K/uL 12:43 PM HEALTH PROFESSOR [place] Granulocytes/Jean Claude 5.4 2.1 - 8.7 04/22/2018 [facility] trophils K/uL 12:43 PM HEALTH PROFESSOR [place] Absolute Specimen Anatomical Collection Method Collection Time Receive d Time (Source) Location / / Volume Laterality Blood (Blood, 04/22/2018 10:33 04/22/2018 Venous) AM HEALTH PROFESSOR 12:38 PM HEALTH PROFESSOR Adriane Patel APRN, NURSING SPECIALIST LAB BLOOD ORDERABLES Performing Organization Address City/State/ZIP Code Phon e Number [facility] [place] [address] [place] [address] documented in this encounter Visit Diagnoses Diagnosis Type 2 diabetes mellitus without complic ation, without long-term current use of insulin (HCC) - Primary Dyspnea on exertion Other dyspnea and respiratory abnormalit y Hyperlipidemia, unspecified hyperlipidem ia type documented in this encounter Care Teams Crossbar Frame Wirer Relationship Specialty Start Date End Date Adriane Ptael APRN, NURSING SPECIALIST PCP - General 09/22/17 07/06/19 [address] [facility] [place] [address] documented as of this encounter
--- OUTSIDE RECORDS SUMMARY | 2022-01-21 14:07 | XMS_ITS | Encounter Summary ---
:1945 Author Organization [facility] Address [address] [place] [address] Care Team Providers Name Role Phone Adriane Patel BULK SEALER, LEAD APPLIER Primary Care Provider [phone] Reason for Visit Reason Onset Date Comments NEW RX 03/23/2018 Encounter Details Date Type Department Care Team Description 03/23/2018 Telephone [place] Adriane Patel, NEW RX [address] BULK SEALER, LEAD APPLIER [place], [place] [address] [address] [facility] [address] [phone] [place], [place] [address] Social History Tobacco Use [...] 2 weeks and get back to us. HOBBER Telephone Encounter - Adriane Patel APRN, LEONARD - 03/23/2018 4:42 PM GEAR HOBBER The patient can just discontinue the Januvia, as we increased her Glipizide, lets have her continue to monitor blood sugars x 2 weeks and then call us. Thanks, Suresh HOBBER Telephone Encounter - Ana Cristina Prado MA - 03/23/2018 4:30 PM CST Please advise HOBBER Telephone Encounter - Di Sloan - 03/23/2018 4:18 PM CST Suresh was going to put her on a new Rx once she was done. She is done now and would like to know what she should be on now. She uses [facility] and would like a call back so she knows what plan B is. HOBBER documented in this encounter Plan of Treatment Not on filedocumented as of this encounter Visit Diagnoses Not on filedocumented in this encounter Care Teams Refrigeration Mechanic Helper Relationship Specialty Start Date End Date Adriane Patel APRN, LEAD APPLIER PCP - General 09/22/17 07/06/19 [address] [place] [address] documented as of this encounter
--- OUTSIDE RECORDS SUMMARY | 2022-01-21 14:07 | XMS_ITS | Encounter Summary ---
:1945 Author Organization [facility] Address [address] [place] [address] Care Team Providers Name Role Phone Jorge Adriane Simons NECK SKEWER, CRIMPER ASSEMBLER Primary Care Provider [phone] Encounter Details Date Type Department Care Team Description 04/01/2018 Lab [place] Weak urinary stream [address] [place], [place] [address] Social History Tobacco Use [...] tream Results for this EXAM (REFLEXED) AM CONTACT CENTER CONSULTANT procedure ar e in the results section. URINALYSIS WITH REFLEX Routine 04/01/2018 11:39 Weak urinary s tream Results for this MICROSCOPIC AM CONTACT CENTER CONSULTANT procedure are i n the results section. URINE CULTURE Routine 04/01/2018 11:39 Weak urinary stream Res ults for this AM CONTACT CENTER CONSULTANT procedure are i n the results section. GLOMERULAR FILTRATION Routine 04/01/2018 11:32 Re sults for this RATE AM CONTACT CENTER CONSULTANT procedure are i n the results section. CBC BRANCH OFFICE Routine 04/01/2018 11:32 Result s for this W/DIFF AM CONTACT CENTER CONSULTANT procedure are i n the results section. CREATININE, SERUM Routine 04/01/2018 11:32 Result s for this AM CONTACT CENTER CONSULTANT procedure are i n the results section. SEDIMENTATION RATE, Routine 04/01/2018 11:32 Resu lts for this AUTOMATED AM CONTACT CENTER CONSULTANT procedure are i n the results section. C-REACTIVE PROTEIN Routine 04/01/2018 11:32 Resul ts for this AM CONTACT CENTER CONSULTANT procedure are i n the results section. ALT Routine 04/01/2018 11:32 Results for this AM CONTACT CENTER CONSULTANT procedure are i n the results section. AST Routine 04/01/2018 11:32 Results for this AM CONTACT CENTER CONSULTANT procedure are i n the results section. ALBUMIN Routine 04/01/2018 11:32 Results for this AM CONTACT CENTER CONSULTANT procedure are i n the results section. documented in this encounter Results (ABNORMAL) Urine culture (clean catch) (04/01/2018 11:39 AM CONTACT CENTER CONSULTANT) [facility] Method Time Signature Urine Culture Escherichia coli 04/03/2018 [place] >100,000 cfu/ml 8:14 AM CONTACT CENTER CONSULTANT [facility] Specimen Anatomical Collection Method Collection Time Receive d Time (Source) Location / / Volume Laterality Urine, Clean 04/01/2018 11:39 04/02/2018 Catch AM CONTACT CENTER CONSULTANT 12:50 PM CONTACT CENTER CONSULTANT Narrative [facility] - 03/19 8:14 AM CONTACT CENTER CONSULTANT Patient does not have an Amoxicillin [facility] [address] [place] [address] (ABNORMAL) Urinalysis-Microscopic Exam (04/01/2018 11:39 AM CONTACT CENTER CONSULTANT) [facility] ExpertFile Method Time Signature Casts, urine NONE SEEN 0-2 Hyaline 04/01/2018 [facility] /lpf 12:56 PM CONTACT CENTER CONSULTANT [place] Significant NONE SEEN None Seen 04/01/2018 [facility] casts, urine /lpf 12:56 PM CONTACT CENTER CONSULTANT [place] RBC, Urine 0-3 0 - 3 /hpf 04/01/2018 [facility] 12:56 PM CONTACT CENTER CONSULTANT [place] WBC, Urine 11-20 (A) /hpf 04/01/2018 [facility] 12:56 PM CONTACT CENTER CONSULTANT [place] Comment: Male Ref Range ? 0-3/hpf Female Ref Range ?? 0-10/hpf Squamous Epithelial, 1+ (A) Few /lpf 04/01/2018 12:56 PM [facility] [place] Urine CONTACT CENTER CONSULTANT Trans Epithelial, NONE SEEN 0 - 3 /hpf 04/01/2018 12:56 PM [facility] [place] Urine CONTACT CENTER CONSULTANT Renal Tubular Cells, NONE SEEN 0 - 1 /hpf 04/01/2018 12:56 P M [facility] [place] Urine CONTACT CENTER CONSULTANT Bacteria, Urine 1+ (A) None Seen /hpf 04/01/2018 12:56 PM [facility] [place] CONTACT CENTER CONSULTANT Specimen Anatomical Collection Method Collection Time Receive d Time (Source) Location / / Volume Laterality 04/01/2018 11:39 04/01/2018 AM CONTACT CENTER CONSULTANT 11:40 AM CONTACT CENTER CONSULTANT Adriane Patel APRN, CNP LAB URINE ORDERABLES Performing Organization Address City/[facility]/ZIP Code Phon e Number [facility] [place] [address] [place] [address] (ABNORMAL) Urinalysis with reflex microscopic (clean catch) (04/01/2018 11:39 AM CONTACT CENTER CONSULTANT) [facility] Expert[facility] Method Time Signature Type COLLECTION HAT 04/01/2018 [facility] 11:52 AM [place] CONTACT CENTER CONSULTANT Color, Urine STRAW YELLOW 04/01/2018 [facility] 11:52 AM [place] CONTACT CENTER CONSULTANT Clarity, HAZY (A) CLEAR 04/01/2018 [facility] Urine 11:52 AM [place] CONTACT CENTER CONSULTANT Glucose, 100 (A) NEGATIVE 04/01/2018 [facility] Urine mg/dL 11:52 AM [place] CONTACT CENTER CONSULTANT Bilirubin, NEGATIVE NEGATIVE 04/01/2018 [facility] Urine 11:52 AM [place] CONTACT CENTER CONSULTANT Ketones, NEGATIVE NEGATIVE 04/01/2018 [facility] Urine mg/dL 11:52 AM [place] CONTACT CENTER CONSULTANT Specific 1.020 1.000 04/01/2018 [facility] [place], ->=1.030 11:52 AM [place] Urine CONTACT CENTER CONSULTANT Blood, Urine NEGATIVE NEGATIVE 04/01/2018 [facility] 11:52 AM [place] CONTACT CENTER CONSULTANT pH, Urine 5.0 5.0 - 7.0 04/01/2018 [facility] 11:52 AM [place] CONTACT CENTER CONSULTANT Protein, NEGATIVE NEGATIVE-TRA 04/01/2018 [facility] Urine CE mg/dL 11:52 AM [place] CONTACT CENTER CONSULTANT Urobilinogen, 0.2 0.2 - 1.0 04/01/2018 [facility] Urine E.U./dL 11:52 AM [place] CONTACT CENTER CONSULTANT Nitrite, NEGATIVE NEGATIVE 04/01/2018 [facility] Urine 11:52 AM [place] CONTACT CENTER CONSULTANT Leukocytes, MODERATE (A) NEGATIVE 04/01/2018 [facility] Urine 11:52 AM [place] CONTACT CENTER CONSULTANT Specimen Anatomical Collection Method Collection Time Receive d Time (Source) Location / / Volume Laterality Urine (Urine, 04/01/2018 11:39 04/01/2018 Clean Catch) AM CONTACT CENTER CONSULTANT 11:40 AM CONTACT CENTER CONSULTANT Adriane Patel APRN, CRIMPER ASSEMBLER LAB URINE ORDERABLES Performing Organization Address City/State/ZIP Code Phon e Number [facility] [place] [address] [place] [address] (ABNORMAL) Glomerular filtration rate (GFR) (04/01/2018 11:32 AM CONTACT CENTER CONSULTANT) P athologist Signature GFR 44 (A) 04/02/2018 [facility] 2:25 PM CONTACT CENTER CONSULTANT [facility] 53 (A) 04/02/2018 [facility] Vietnamese GFR 2:25 PM CONTACT CENTER CONSULTANT [facility] Comment: GFR calculated from serum creatinine v alue Chronic Kidney Disease less than 60 mL/m in/1.73 m2 Kidney Failure less than 15 mL/min/1.73 m2 Note: effective 07/01/06 IDMS-Traceable MDRD Study Equation used. Specimen Anatomical Collection Method Collection Time Receive d Time (Source) Location / / Volume Laterality 04/01/2018 11:32 04/01/2018 AM CONTACT CENTER CONSULTANT 11:32 AM CONTACT CENTER CONSULTANT Narrative [facility] - 03/19 2:25 PM CONTACT CENTER CONSULTANT Called to CALL CANCELLED - RESULTS FAXED , , 14:29 04/01/[address] Carl Prado [facility] Rheumatology Fax Phone Outside Referring Lab Provider LAB BLOOD ORDERABLES Performing Organization Address City/State/ZIP Code Phon e Number [facility] [address] [place] [address] (ABNORMAL) CBC Branch Off w/Diff (04/01/2018 11:32 AM CONTACT CENTER CONSULTANT) Patholo gist Method Time Signature WBC 6.6 3.5 - 10.5 04/01/2018 [facility] K/uL 11:51 AM CONTACT CENTER CONSULTANT [place] RBC 3.82 (L) 3.90 - 04/01/2018 [facility] 5.00 M/uL 11:51 AM CONTACT CENTER CONSULTANT [place] Hemoglobin 11.3 (L) 12.0 - 04/01/2018 [facility] 15.5 g/dL 11:51 AM CONTACT CENTER CONSULTANT [place] Hematocrit 34.5 (L) 35.0 - 04/01/2018 [facility] 44.0 % 11:51 AM CONTACT CENTER CONSULTANT [place] Platelets 208 150 - 450 04/01/2018 [facility] K/uL 11:51 AM CONTACT CENTER CONSULTANT [place] MCV 90.3 81.6 - 04/01/2018 [facility] 98.3 fL 11:51 AM CONTACT CENTER CONSULTANT [place] MCH 29.6 26.0 - 04/01/2018 [facility] 32.0 pg 11:51 AM CONTACT CENTER CONSULTANT [place] MCHC 32.8 32.0 - 04/01/2018 [facility] 36.0 g/dL 11:51 AM CONTACT CENTER CONSULTANT [place] RDW 13.0 11.9 - 04/01/2018 [facility] 15.5 % 11:51 AM CONTACT CENTER CONSULTANT [place] Lymphocytes % 17.3 (L) 18.0 - 04/01/2018 [facility] 45.0 % 11:51 AM CONTACT CENTER CONSULTANT [place] Mid-size Cells 12.7 (H) 3.3 - 10.1 04/01/2018 [facility] % 11:51 AM CONTACT CENTER CONSULTANT [place] Granulocytes/Jean Claude 70.0 45.8 - 04/01/2018 [facility] trophils 73.7 % 11:51 AM CONTACT CENTER CONSULTANT [place] Lymphocytes 1.1 0.9 - 2.9 04/01/2018 [facility] Absolute K/uL 11:51 AM CONTACT CENTER CONSULTANT [place] MIDS Absolute 0.8 0.2 - 0.8 04/01/2018 [facility] K/uL 11:51 AM CONTACT CENTER CONSULTANT [place] Granulocytes/[place] 4.7 2.1 - 8.7 04/01/2018 [facility] trophils K/uL 11:51 AM CONTACT CENTER CONSULTANT [place] Absolute Specimen Anatomical Collection Method Collection Time Receive d Time (Source) Location / / Volume Laterality 04/01/2018 11:32 04/01/2018 AM CONTACT CENTER CONSULTANT 11:32 AM CONTACT CENTER CONSULTANT Narrative [facility] [place] - 04/01/2018 11:[address] [facility] Fax Phone Outside Referring Lab Provider LAB BLOOD ORDERABLES Performing Organization Address City/State/ZIP Code Phon e Number [facility] [place] [address] [place] [address] AST (04/01/2018 11:32 AM CONTACT CENTER CONSULTANT) P athologist Signature AST 24 8 - 43 U/L 04/02/2018 [facility] 2:25 PM CONTACT CENTER CONSULTANT [facility] Specimen Anatomical Collection Method Collection Time Receive d Time (Source) Location / / Volume Laterality 04/01/2018 11:32 04/02/2018 AM CONTACT CENTER CONSULTANT 12:27 PM CONTACT CENTER CONSULTANT Narrative [facility] - 03/19 2:25 PM CONTACT CENTER CONSULTANT Called to CALL CANCELLED - RESULTS FAXED , , 14:29 04/01/[address] [facility] Fax Phone Outside Referring Lab Provider LAB BLOOD ORDERABLES Performing Organization Address City/State/ZIP Code Phon e Number [facility] [address] [place] [phone] (ABNORMAL) C-reactive protein (04/01/2018 11:32 AM CONTACT CENTER CONSULTANT) athologist [facility] CRP 21.0 (H) 0.0 - 9.9 04/02/2018 [facility] mg/L 2:25 PM CONTACT CENTER CONSULTANT [facility] Comment: . Specimen Anatomical Collection Method Collection Time Receive d Time (Source) Location / / Volume Laterality 04/01/2018 11:32 04/02/2018 AM CONTACT CENTER CONSULTANT 12:28 PM CONTACT CENTER CONSULTANT Narrative [facility] - 03/19 2:25 PM CONTACT CENTER CONSULTANT Called to CALL CANCELLED - RESULTS FAXED , , 14:29 04/01/[address] [facility] Fax Phone Outside Referring Lab Provider LAB BLOOD ORDERABLES Performing Organization Address City/[facility] Phon e Number [facility] [address] [place] [phone] Creatinine, Serum (04/01/2018 11:32 AM CONTACT CENTER CONSULTANT) [facility] Creatinine 1.2 0.4 - 1.2 04/02/2018 [facility] mg/dL 2:25 PM CONTACT CENTER CONSULTANT [facility] Specimen Anatomical Collection Method Collection Time Receive d Time (Source) Location / / Volume Laterality 04/01/2018 11:32 04/02/2018 AM CONTACT CENTER CONSULTANT 12:27 PM CONTACT CENTER CONSULTANT Narrative [facility] - 03/19 2:25 PM CONTACT CENTER CONSULTANT Called to CALL CANCELLED - RESULTS FAXED , , 14:29 04/01/[address] [facility] Fax Phone Outside Referring Lab Provider LAB BLOOD ORDERABLES Performing Organization Address City/[facility]/ZIP [facility] Phon e Number [facility] [address] [place] [phone] ALT (04/01/2018 11:32 AM CONTACT CENTER CONSULTANT) athologist [facility] ALT (SGPT) 28 0 - 34 U/L 04/02/2018 [facility] 2:25 PM CONTACT CENTER CONSULTANT [facility] Comment: NOTE: Normal range change effective 01/17 Specimen Anatomical Collection Method Collection Time Receive d Time (Source) Location / / Volume Laterality 04/01/2018 11:32 04/02/2018 AM CONTACT CENTER CONSULTANT 12:27 PM CONTACT CENTER CONSULTANT Narrative [facility] - 03/19 2:25 PM CONTACT CENTER CONSULTANT Called to CALL CANCELLED - RESULTS FAXED , , 14:29 04/01/[address] [facility] Fax Phone Outside Referring Lab Provider LAB BLOOD ORDERABLES Performing Organization Address City/[facility]/ZIP Code Phon e Number [facility] [address] [place] [phone] Albumin (04/01/2018 11:32 AM CONTACT CENTER CONSULTANT) athologist Signature Albumin, Serum 4.3 3.5 - 5.0 04/02/2018 [facility] g[facility] 2:25 PM [facility] Specimen Anatomical Collection Method Collection Time Receive d Time (Source) Location / / Volume Laterality 04/01/2018 11:32 04/02/2018 AM CONTACT CENTER CONSULTANT 12:27 PM CONTACT CENTER CONSULTANT Narrative [facility] - 03/19 2:25 PM CONTACT CENTER CONSULTANT Called to CALL CANCELLED - RESULTS FAXED , , 14:29 04/01/[address] [facility] Fax Phone Outside Referring Lab Provider LAB BLOOD ORDERABLES Performing Organization Address City/[facility]/ZIP Code Phon e Number [facility] [address] [place] [phone] (ABNORMAL) ESR-Sed rate (04/01/2018 11:32 AM CONTACT CENTER CONSULTANT) P athologist Signature Sed Rate 67 (H) 0 - 29 04/02/2018 [facility] mm/hr 1:30 PM [facility] Specimen Anatomical Collection Method Collection Time Receive d Time (Source) Location / / Volume Laterality 04/01/2018 11:32 04/02/2018 AM CONTACT CENTER CONSULTANT 12:25 PM CONTACT CENTER CONSULTANT Narrative [facility] - 03/19 1:30 PM CONTACT CENTER CONSULTANT Called to CALL CANCELLED - RESULTS FAXED , , 14:29 04/01/[address] Carl Prado [facility] Rheumatology Fax Phone Outside Referring Lab Provider LAB BLOOD ORDERABLES Performing Organization Address City/State/ZIP Code Phon e Number [facility] [address] [place] [address] documented in this encounter Visit Diagnoses Diagnosis Weak urinary stream Slowing of urinary stream documented in this encounter Care Teams Sample Driller Relationship Specialty Start Date End Date Adriane Patel, NECK SKEWER, CRIMPER ASSEMBLER PCP - General 09/22/17 07/06/[address] [place] [phone] documented as of this encounter
--- OUTSIDE RECORDS SUMMARY | 2022-01-21 14:07 | XMS_ITS | Encounter Summary ---
:1945 Author Organization [facility] Address [address] [place] [address] Care Team Providers Name Role Phone Jorge Adriane Simons IT PROGRAM ENGAGEMENT DIRECTOR, AUTOMOBILES SALESPERSON Primary Care Provider [phone] Encounter Details Date Type Department Care Team Description 06/24/2018 Lab [place] Type 2 diabetes mellitus wit h [address] other specified complication , [place] [address] without long-term current us e [phone] of insulin (HCC ) Social History Tobacco [...] A1C 8.5 (H) 4.0 - 5.6 06/24/2018 [place] % A1C 5:31 PM [facility]T [facility] [...] AM CDT PM CDT Adriane Patel APRN, AUTOMOBILES SALESPERSON LAB BLOOD ORDERABLES Performing Organization Address City/State/ZIP Code Phon e Number [facility] [address] [place] [address] documented in this encounter Visit Diagnoses Diagnosis Type 2 diabetes mellitus with other spec ified complication, without long-term current use of insulin (HCC) documented in this encounter Care Teams Resource Development Manager Relationship Specialty Start Date End Date Adriane Patel APRN, AUTOMOBILES SALESPERSON PCP - General 09/22/17 07/06/19 [address] [place] [address] documented as of this encounter
--- OUTSIDE RECORDS SUMMARY | 2022-01-21 14:07 | XMS_ITS | Encounter Summary ---
:[address] [facility] Address [address] [place] [address] Care Team Providers Name Role Phone Adriane Patel FACILITY MANAGER HISTOLOGY, EARLY CHILDHOOD EDUCATOR AIDE Primary Care Provider [phone] Encounter Details Date Type Department Care Team Description 05/26/2018 Orders Only [place] Adriane Patel, Type 2 diabetes [address] FACILITY MANAGER HISTOLOGY, EARLY CHILDHOOD EDUCATOR AIDE mellitus with other [place], [place] [address] specified [address] [place] [address] complication, without [phone] long-ter m current use of insulin (HCC [...] A1C 8.5 (H) 4.0 - 5.6 06/24/2018 [place] % A1C 5:31 PM CDT [facility] Comment: Reference Range 4.0-5.6% [...] [facility] [address] [place] [address] documented in this encounter Visit Diagnoses Diagnosis Type 2 diabetes mellitus with other spec ified complication, without long-term current use of insulin (HCC) - Primary documented in this encounter Care Teams Global Sales Executive Relationship Specialty Start Date End Date Adriane Paetl APRN, EARLY CHILDHOOD EDUCATOR AIDE PCP - General 09/22/17 07/06/19 [address] [place] [address] documented as of this encounter
--- OUTSIDE RECORDS SUMMARY | 2022-01-21 14:08 | XMS_ITS | Encounter Summary ---
:1945 Author Organization [facility] Address [address] [place] [address] Care Team Providers Name Role Phone Jorge Adriane Simons APRN, BILINGUAL PATIENT SUPPORT CASEWORKER Primary Care Provider [phone] Encounter Details Date Type Department Care Team Description 12/24/2017 Lab [place] [address] [place], [place] [address] Social History Tobacco Use [...] 10:40 Re sults for this RATE AM SURVEY CHIEF procedure are i n the results section. CBC BRANCH OFFICE Routine 12/24/2017 10:40 Result s for this W/DIFF AM SURVEY CHIEF procedure are i n the results section. CREATININE, SERUM Routine 12/24/2017 10:40 Result s for this AM SURVEY CHIEF procedure are i n the results section. SEDIMENTATION RATE, Routine 12/24/2017 10:40 Resu lts for this AUTOMATED AM SURVEY CHIEF procedure are i n the results section. C-REACTIVE PROTEIN Routine 12/24/2017 10:40 Resul ts for this AM SURVEY CHIEF procedure are i n the results section. ALT Routine 12/24/2017 10:40 Results for this AM SURVEY CHIEF procedure are i n the results section. AST Routine 12/24/2017 10:40 Results for this AM SURVEY CHIEF procedure are i n the results section. ALBUMIN Routine 12/24/2017 10:40 Results for this AM SURVEY CHIEF procedure are i n the results section. documented in this encounter Results (ABNORMAL) Glomerular filtration rate (GFR) (12/24/2017 10:40 AM SURVEY CHIEF) athologist Signature GFR 37 (A) 12/24/2017 [facility] 11:03 AM [facility] 45 (A) 12/24/2017 [facility] Tristanian GFR 11:03 AM [facility] Comment: GFR calculated from serum creatinine v alue Chronic Kidney Disease less than 60 mL/m in/1.73 m2 Kidney Failure less than 15 mL/min/1.73 m2 Note: effective 07/01/06 IDOH-Traceable MDRD Study Equation used. Specimen Anatomical Collection Method Collection Time Receive d Time (Source) Location / / Volume Laterality 12/24/2017 10:40 12/24/2017 AM SURVEY CHIEF 10:40 AM SURVEY CHIEF Narrative [facility] - 110 09/2017 11:03 AM SURVEY CHIEF Fax results to [facility] Rheumatology [phone] contact Dr Prado [phone] Outside Referring Lab Provider LAB BLOOD ORDERABLES Performing Organization Address City/State/ZIP Code Phon e Number [facility] [address] [place] [address] (ABNORMAL) CBC Branch Off w/Diff (12/24/2017 10:40 AM SURVEY CHIEF) Patholo gist Method Time Signature WBC 6.7 3.5 - 10.5 12/24/2017 [facility] K/uL 11:03 AM [facility] [place] RBC 3.61 (L) 3.90 - 12/24/2017 [facility] 5.00 M/uL 11:03 AM [facility] [place] Hemoglobin 11.1 (L) 12.0 - 12/24/2017 [facility] 15.5 g/dL 11:03 AM [facility] [place] Hematocrit 32.9 (L) 35.0 - 12/24/2017 [facility] 44.0 % 11:03 AM [facility] [place] Platelets 197 150 - 450 12/24/2017 [facility] K/uL 11:03 AM [facility] [place] MCV 91.1 81.6 - 12/24/2017 [facility] 98.3 fL 11:03 AM [facility] [place] MCH 30.7 26.0 - 12/24/2017 [facility] 32.0 pg 11:03 AM [facility] [place] MCHC 33.7 32.0 - 12/24/2017 [facility] 36.0 g/dL 11:03 AM [facility] [place] RDW 12.6 11.9 - 12/24/2017 [facility] 15.5 % 11:03 AM [facility] [place] Lymphocytes % 13.0 (L) 18.0 - 12/24/2017 [facility] 45.0 % 11:03 AM [facility] [place] Mid-size Cells 9.9 3.3 - 10.1 12/24/2017 [facility] % 11:03 AM [facility] [place] Granulocytes/Jean Claude 77.1 (H) 45.8 - 12/24/2017 [facility] trophils 73.7 % 11:03 AM [facility] [place] Lymphocytes 0.9 0.9 - 2.9 12/24/2017 [facility] Absolute K/uL 11:03 AM [facility] [place] MIDS Absolute 0.7 0.2 - 0.8 12/24/2017 [facility] K/uL 11:03 AM [facility] [place] Granulocytes/Jean Claude 5.1 2.1 - 8.7 12/24/2017 [facility] trophils K/uL 11:03 AM [facility] [place] Absolute Specimen Anatomical Collection Method Collection Time Receive d Time (Source) Location / / Volume Laterality 12/24/2017 10:40 12/24/2017 AM SURVEY CHIEF 10:40 AM SURVEY CHIEF Narrative [facility] [place] - 12/24/2017 11:03 AM C Fax results to [place] [phone] Prado [phone] Outside Referring Lab Provider LAB BLOOD ORDERABLES Performing Organization Address City/State/ZIP Code Phon e Number [facility] [address] [place] [address] AST (12/24/2017 10:40 AM SURVEY CHIEF) athologist Signature AST 33 8 - 43 U/L 12/25/2017 [facility] 1:03 PM [facility] Specimen Anatomical Collection Method Collection Time Receive d Time (Source) Location / / Volume Laterality 12/24/2017 10:40 12/25/2017 AM SURVEY CHIEF 12:27 PM SURVEY CHIEF Narrative [facility] - 10/2017 1:03 PM SURVEY CHIEF Called to CALL CANCELLED - RESULTS FAXED , , 12:47 12/24/2017 [id number] Fax results to [facility] Rheumatology [phone] Prado [phone] Outside Referring Lab Provider LAB BLOOD ORDERABLES Performing Organization Address City/[facility]/ZIP Code Phon e Number [facility] [address] [place] [address] (ABNORMAL) C-reactive protein (12/24/2017 10:40 AM SURVEY CHIEF) athologist Signature CRP 22.9 (H) 0.0 - 9.9 12/25/2017 [facility] mg/L 1:43 PM [facility] Comment: . Specimen Anatomical Collection Method Collection Time Receive d Time (Source) Location / / Volume Laterality 12/24/2017 10:40 12/25/2017 AM SURVEY CHIEF 12:38 PM SURVEY CHIEF Narrative [facility] - 10/2017 1:43 PM SURVEY CHIEF Called to CALL CANCELLED - RESULTS FAXED , , 12:47 12/24/2017 [id number] Fax results to [facility] Rheumatology [phone] Prado [phone] Outside Referring Lab Provider LAB BLOOD ORDERABLES Performing Organization Address City/[facility]/ZIP Code Phon e Number [facility] [address] [place] [phone] (ABNORMAL) Creatinine, Serum (12/24/2017 10:40 AM SURVEY CHIEF) athologist Signature Creatinine 1.4 (H) 0.4 - 1.2 12/24/2017 [facility] mg/dL 11:03 AM [facility] [place] Comment: . Specimen Anatomical Collection Method Collection Time Receive d Time (Source) Location / / Volume Laterality 12/24/2017 10:40 12/24/2017 AM SURVEY CHIEF 10:40 AM SURVEY CHIEF Narrative [facility] [place] - 12/24/2017 11:[address] Fax results to [facility] [phone] Prado [phone] Outside Referring Lab Provider LAB BLOOD ORDERABLES Performing Organization Address City/State/ZIP Code Phon e Number [facility] [address] [place] [address] ALT (12/24/2017 10:40 AM SURVEY CHIEF) athologist Signature ALT (SGPT) 31 25 - 45 U/L 12/25/2017 [facility] 1:03 PM [facility] Comment: . Specimen Anatomical Collection Method Collection Time Receive d Time (Source) Location / / Volume Laterality 12/24/2017 10:40 12/25/2017 AM SURVEY CHIEF 12:27 PM SURVEY CHIEF Narrative [facility] - 10/2017 1:03 PM SURVEY CHIEF Called to CALL CANCELLED - RESULTS FAXED , , 12:47 12/24/2017 [id number] Fax results to [facility] Rheumatology [phone] Prado [phone] Outside Referring Lab Provider LAB BLOOD ORDERABLES Performing Organization Address City/State/ZIP Code Phon e Number [facility] [address] [place] [address] Albumin (12/24/2017 10:40 AM SURVEY CHIEF) athologist Signature Albumin, Serum 4.5 3.5 - 5.0 12/25/2017 [facility] L g/dL 1:03 PM [facility] Specimen Anatomical Collection Method Collection Time Receive d Time (Source) Location / / Volume Laterality 12/24/2017 10:40 12/25/2017 AM SURVEY CHIEF 12:27 PM SURVEY CHIEF Narrative [facility] - 10/2017 1:03 PM SURVEY CHIEF Called to CALL CANCELLED - RESULTS FAXED , , 12:47 12/24/2017 [id number] Fax results to [facility] Rheumatology [phone] Prado [phone] Outside Referring Lab Provider LAB BLOOD ORDERABLES Performing Organization Address City/State/ZIP Code Phon e Number [facility] [address] [place] [address] (ABNORMAL) ESR-Sed rate (12/24/2017 10:40 AM SURVEY CHIEF) P athologist Signature Sed Rate 81 (H) 0 - 29 12/25/2017 [facility] mm/hr 1:27 PM [facility] Specimen Anatomical Collection Method Collection Time Receive d Time (Source) Location / / Volume Laterality 12/24/2017 10:40 12/25/2017 AM SURVEY CHIEF 12:27 PM SURVEY CHIEF Narrative [facility] - 1110/2017 1:27 PM SURVEY CHIEF Called to CALL CANCELLED - RESULTS FAXED , , 12:47 12/24/2017 [id number] Fax results to [facility] [phone] Prado [phone] Outside Referring Lab Provider LAB BLOOD ORDERABLES Performing Organization Address City/[facility]/ZIP Code Phon e Number [facility] [address] [place] [address] documented in this encounter Visit Diagnoses Not on filedocumented in this encounter Care Teams Placement Assistant Relationship Specialty Start Date End Date Adriane Patel APRN, BILINGUAL PATIENT SUPPORT CASEWORKER PCP - General 09/22/17 07/06/19 100 [facility] [place] [address] documented as of this encounter
--- OUTSIDE RECORDS SUMMARY | 2022-01-21 14:08 | XMS_ITS | Encounter Summary ---
:1945 Author Organization [facility] Address [address] [place] [address] Care Team Providers Name Role Phone Adriane Patel CLOTH TESTER QUALITY, SUPERVISOR LATHING Primary Care Provider [phone] Reason for Visit Reason Onset Date Comments Med Refill 03/03/2018 Encounter Details Date Type Department Care Team Description 03/03/2018 Telephone [place] Adriane Patel, Med Refill [address] CLOTH TESTER QUALITY, SUPERVISOR LATHING [place], [place] [address] [address] [facility] [phone] [place], [place] [address] Social History Tobacco Use [...] LPN - 03/04/2018 7:50 AM CST Noted CONDUCTOR ENGINEER Telephone Encounter - Brenda House - 03/03/2018 4:40 PM CST Picked up glipizide at [facility] already CONDUCTOR ENGINEER Telephone Encounter - Ana Cristina Prado MA - 03/03/2018 10:15 AM CST Left message for patient. Need to know if she needs her Glipizide sent to [facility] or [facility]. CONDUCTOR ENGINEER documented in this encounter Plan of Treatment Not on filedocumented as of this encounter Visit Diagnoses Not on filedocumented in this encounter Care Teams Antique Jewelry Repairer Relationship Specialty Start Date End Date Adriane Patel, CLOTH TESTER QUALITY, SUPERVISOR LATHING PCP - General 09/22/17 07/06/19 100 [place] [address] documented as of this encounter
--- OUTSIDE RECORDS SUMMARY | 2022-01-21 14:08 | XMS_ITS | Encounter Summary ---
:1945 Author Organization [facility] Address [address] [place] [address] Care Team Providers Name Role Phone Adriane Patel BULL RIDER, SEPHORA PRODUCT CONSULTANT Primary Care Provider [phone] Reason for Visit Reason Onset Date Comments colonoscopy questions 03/03/2018 Encounter Details Date Type Department Care Team Description 03/03/2018 Telephone [place] Adriane Patel, colonoscopy questions [address] BULL RIDER, SEPHORA PRODUCT CONSULTANT [place], [place] [address] [address] [facility] [address] [phone] [place], [place] [address] Social History Tobacco Use [...] CST Called and canceled Marcial's colonoscopy at [place]. Called patient and informed her to come in to sign Cologuard form. BRUSH DECORATOR Telephone Encounter - Lana Knight LPN - 03/04/2018 9:30 AM CST Left a message for Marcial to call back. BRUSH DECORATOR Telephone Encounter - Adriane Patel APRN, LEONARD - 03/04/2018 8:52 AM AIR BRUSH DECORATOR The patient has no family history of colon cancer, please confirm. If there is no family history of colon cancer, Catrina guard testing is appropriate and I will be happy to make those arrangements, shedoes need to complete the form. Thanks Suresh BRUSH DECORATOR Telephone Encounter - Lana Knight LPN - [...] benefits out way the risks. Please advise BRUSH DECORATOR Telephone Encounter - Brenda House - 03/03/2018 4:41 PM CST Pt has questions about colonoscopy she is having next week BRUSH DECORATOR documented in this encounter Plan of Treatment Not on filedocumented as of this encounter Visit Diagnoses Not on filedocumented in this encounter Care Teams Assistant Dean Relationship Specialty Start Date End Date Adriane Patel APRN, SEPHORA PRODUCT CONSULTANT PCP - General 09/22/17 07/06/19 100 [facility] [place], [place] [address] documented as of this encounter
--- OUTSIDE RECORDS SUMMARY | 2022-01-21 14:08 | XMS_ITS | Encounter Summary ---
:1945 Author Organization [facility] Address [address] [place] [address] Care Team Providers Name Role Phone Adriane Patel APRN, LEONARD Primary Care Provider [phone] Reason for Referral Cardiac (Routine) - Closed Specialty Diagnoses / Procedures Referred By Contact Refer red To Contact Cardiology Diagnoses Localized edema Dyspnea on exertion Coronary artery disease, angina presence unspecified, unspecified vessel or lesion type, unspecified whether jackson or transplanted heart Adriane Patel, Cardiology Procedures Echocardiogram 2D complete with spec and color form doppler LE[facility]ARD [place] [address] [place] [address] [place] [address] Fax: Referral ID Status Reason Start Date Expiration Date Visits Requ ested Visits Authorized [id number] Closed 11/13/2017 05/12/2018 1 1 Encounter Details Date Type Department Care Team Description 11/13/2017 Orders Only [place] Adriane Patel Localized edema (Primary Dx) ; [address] M, LEONARD RESENDEZ Dyspnea on exertion; [place], [place] 100 [facility] Coronary artery disease, angina presence unspecified, unspecified vessel or lesion type, unspecified whether jackson or transplanted heart [address] [place] [address] [phone] Social History Tobacco Use Types Packs/Day Years [...] 12/23/2018 organizations such as catholic groups, unions, [employer] or athletic groups, or school groups? How [...] unspecified vessel or lesion type, unspecified whether jackson or transplanted heart documented as of this encounter Visit Diagnoses Diagnosis Localized edema - Primary Edema Dyspnea on exertion Other dyspnea and respiratory abnormalit y Coronary artery disease, angina presence unspecified, unspecified vessel or lesion type, unspecified whether jackson or crsytal splanted heart documented in this encounter Care Teams Compressor Service Technician Relationship Specialty Start Date End Date Adriane Patel APRN, SALES TEAM MEMBER PCP - General 09/22/17 07/06/19 100 [place] [address] documented as of this encounter
--- OUTSIDE RECORDS SUMMARY | 2022-01-21 14:08 | XMS_ITS | Encounter Summary ---
:1945 Author Organization [facility] Address [address] [place] [address] Care Team Providers Name Role Phone Adriane Patel ENGINEERING PROGRAMMER, MATERIAL HANDLER Primary Care Provider [phone] Reason for Visit Reason Comments Medication Visit Encounter Details Date Type Department Care Team Description 02/19/2018 Office Visit [place] Adriane Patel Type 2 diabetes [address] M, LEONARD RESENDEZ mellitus with other [place], [place] [address] [place] [address] [place] [address] complication, without [phone] long-ter m current use of insulin (HCC [...] Comments Blood Pressure 120/72 02/19/2018 4:04 PM DROP WIRE ALINER Pulse 90 02/19/2018 4:04 PM DROP WIRE ALINER Temperature 36.6 ??C (97.8 ??F) 02/19/2018 4:04 PM DROP WIRE ALINER Respiratory Rate 16 02/19/2018 4:04 PM DROP WIRE ALINER Oxygen Saturation 99% 02/19/2018 4:04 PM DROP WIRE ALINER Inhaled Oxygen Concentration - - Weight 81.1 kg (178 lb 12.7 oz) 02/19/2018 4:04 PM DROP WIRE ALINER Height 161 cm (5' 3.39) 02/19/2018 4:04 PM DROP WIRE ALINER Body Mass Index 31.29 02/19/2018 4:04 PM DROP WIRE ALINER documented in this encounter Patient Instructions Patient InstructionsChgarfield Patel APRN, CNP - 02/19/2018 4:00 PM DROP WIRE ALINER Glipizide 5 mg twice daily x one month. Continue Januvia 50 mg daily until pills runt out x one month. Closely monitor blood sugars and if they start elevate. WIRE ALINER documented in this encounter Progress Notes Adriane [...] plan of care. Adriane Patel APRN, CNP WIRE ALINER documented in this encounter Plan of Treatment Not on filedocumented as of this encounter Visit Diagnoses Diagnosis Type 2 diabetes mellitus with other spec ified complication, without long-term current use of insulin (HCC) - Primary documented in this encounter Care Teams Handyman Relationship Specialty Start Date End Date Adriane Patel APRN, MATERIAL HANDLER PCP - General 09/22/17 07/06/19 100 [facility] [place] [address] documented as of this encounter
--- OUTSIDE RECORDS SUMMARY | 2022-01-21 14:08 | XMS_ITS | Encounter Summary ---
:1945 Author Organization [facility] Address [address] [place] [address] Care Team Providers Name Role Phone Patel, Adriane Simons STENCIL PRINTER, CHARRER Primary Care Provider [phone] Reason for Visit Reason Comments Diarrhea Encounter Details Date Type Department Care Team Description 11/30/2017 Office Visit [place] Adriane Patel Diarrhea, unspecified type ( Primary Dx); [address] M, LEONARD RESENDEZ Insomnia, unspecified type; [place], [place] [address] Shakes; [address] [place] [address] Vitamin D deficiency; [phone] Hunger p ain, initial encounter; Renal insuffici [...] vitamin C 500 mg tablet in the Citizen.VC vitamins [facility] which she takes. ROS: GENERAL: No fever, no chills but at times she does feel cold, which she feels is from her rheumatoidarthritis. The patient has lost 10 pounds since her rheumatoid arthritis diagnosis, and correlates her weight loss with this diagnosis, and not her gastrointestinal symptoms. BREASTS: The patient reports she did have a mammogram in [place] in November, and does not know the results, as they had to obtain her previous films to compare before resulting. GASTROINTESTINAL: See HPI. The patient has a long-standing history of diarrhea, even recalls back [id number], or 2011, it was recommended she start [...] with an EGD and a colonoscopy at [place],for further evaluation of her hunger discomfort with [...] Signature H pylori Ag, NEGATIVE Negative 12/01/2017 [facility] 2:47 PM T [facility] Comment: H. pylori antigen is absent or below the level of detection. Specimen Anatomical Collection Method Collection Time Receive d Time (Source) Location / / Volume Laterality Stool (Per 12/01/2017 7:30 AM 8 Rectum) CDT 12:59 PM CDT Adriane Patel STENCIL PRINTER, CHARRER LAB BODY FLUIDS AND STOOL S ORDERABLES Performing Organization Address City/State/ZIP Code Phon e Number [facility] [address] [place] [phone] Vitamin D, Total (11/30/2017 12:38 PM CDT) athologist Signature Vitamin D, 48.7 ng/mL 12/01/2017 [facility] Total 2:18 PM CDT [facility] Comment: ---- Deficient ?<20 ? ng/mL [...] CDT 12:59 PM CDT Adriane Patel APRN, LEONARD LAB BLOOD ORDERABLES Performing Organization Address City/State/ZIP Code Phon e Number [facility] [address] [place] [address] (ABNORMAL) Basic metabolic panel (11/30/2017 12:38 PM CDT) athologist Signature Sodium 139 135 - 145 11/30/2017 [facility] mmol/L 1:13 PM CDT [place] Potassium 3.6 3.5 - 5.1 11/30/2017 [facility] mmol/L 1:13 PM CDT [place] Comment: . Chloride 102 98 - 107 mmol/L 11/30/2017 1:13 PM CDT [facility] [place] Comment: . CO2 30 (H) 22 - 29 mmol/L 11/30/2017 1:13 PM CDT [facility] Comment: . Creatinine 1.0 0.4 - 1.2 mg/dL 11/30/2017 1:13 PM CDT [facility] [place] Comment: . BUN 20 5 - 25 mg/dL 11/30/2017 1:13 PM CDT [facility] [place] Comment: . Glucose 149 (H) 70 - 100 mg/dL 11/30/2017 1:13 PM CDT [facility] Calcium, Total,S 9.7 8.4 - 10.2 mg/dL 11/30/2017 1:13 PM CDT [facility] Comment: . Fasting? No 11/30/2017 12:41 PM CDT [facility] Specimen Anatomical Collection Method Collection Time Receive d Time (Source) Location / / Volume Laterality Blood (Blood, 11/30/2017 12:38 11/30/2017 Venous) PM CDT 12:38 PM CDT Adriane Patel APRN, CHARRER LAB BLOOD ORDERABLES Performing Organization Address City/State/ZIP Code Phon e Number [facility] [address] [place] [address] documented in this encounter Visit Diagnoses Diagnosis Diarrhea, unspecified type - Primary Insomnia, unspecified type Shakes Abnormal involuntary movements Vitamin D deficiency Hunger pain, initial encounter Renal insufficiency Unspecified disorder of kidney and urete r Anemia, unspecified type documented in this encounter Care Teams Tariff Counsel Relationship Specialty Start Date End Date Adriane Patel APRN, CHARRER PCP - General 09/22/17 07/06/19 100 [facility] [place] [address] documented as of this encounter
--- OUTSIDE RECORDS SUMMARY | 2022-01-21 14:08 | XMS_ITS | Encounter Summary ---
:1945 Author Organization [facility] Address [address] [place] [address] Care Team Providers Name Role Phone Dandy Patelmartinez Simons SCREEN REPAIRER CRUSHER, STRIPER SPRAY GUN Primary Care Provider [phone] Encounter Details Date Type Department Care Team Description 02/15/2018 Lab [place] Type 2 diabetes mellitus wit h [address] complication, without [place], [place] [address] long-term current use of [phone] insulin (HCC) Social History Tobacco Use Types [...] Type 2 diabetes Resu lts for this RAILROAD SUPERVISOR OF ENGINES mellitus with procedure are in the complication, without result s section. long-term current use of insulin (HCC) documented in this encounter Results (ABNORMAL) Hemoglobin A1c (02/15/2018 1:50 PM RAILROAD SUPERVISOR OF ENGINES) Analysis Performed At [facility] Time Signature Hemoglobin A1C 8.2 (H) 4.0 - 5.6 02/15/2018 [place] % A1C 6:32 PM RAILROAD SUPERVISOR OF ENGINES [facility] Comment: Reference Range 4.0-5.6% [...] 02/15/2018 1:50 PM 02/16/20 18 6:14 Venous) RAILROAD SUPERVISOR OF ENGINES PM RAILROAD SUPERVISOR OF ENGINES Adriane Patel APRN, CNP LAB BLOOD ORDERABLES Performing Organization Address City/State/ZIP Code Phon e Number [facility] [address] [place] [address] documented in this encounter Visit Diagnoses Diagnosis Type 2 diabetes mellitus with complicati on, without long-term current use of insulin (HCC) documented in this encounter Care Teams Assistant Chief Engineer Relationship Specialty Start Date End Date Adriane Patel APRN, STRIPER SPRAY GUN PCP - General 09/22/17 07/06/19 100 [place] [address] documented as of this encounter
--- OUTSIDE RECORDS SUMMARY | 2022-01-21 14:08 | XMS_ITS | Encounter Summary ---
:1945 Author Organization [facility] Address [address] [place] [address] Care Team Providers Name Role Phone Adriane Patel Ronak EDUCATION OFFICER, CONTRACT DESIGN AGENT Primary Care Provider [phone] Encounter Details Date Type Department Care Team Description 11/30/2017 Lab [place] Vitamin D deficiency; [address] Renal insufficiency [place], [place] [address] Social History Tobacco Use [...] CDT) athologist Signature GFR 54 (A) 11/30/2017 [facility] 1:13 PM CDT [facility]ENTER [facility] >60 11/30/2017 [facility] [place] GFR 1:13 PM CDT CENTER LABORATORY Comment: [...] CDT 12:38 PM CDT Adriane Patel APRN, CONTRACT DESIGN AGENT LAB BLOOD ORDERABLES Performing Organization Address City/State/ZIP Code Phon e Number [facility] [address] [place] [address] (ABNORMAL) Basic metabolic panel (11/30/2017 12:38 PM [...] - 100 mg/dL 11/30/2017 1:13 PM CDT [facility] JAMES CUELLAR Calcium, Total,S 9.7 8.4 - 10.2 mg/dL 11/30/2017 1:13 PM CDT [facility] JAMES CUELLAR Comment: . Fasting? No 11/30/2017 12:41 PM CDT [facility] [place] MIRIAM CUELLAR Specimen Anatomical Collection Method Collection Time Receive d Time (Source) Location / / Volume Laterality Blood (Blood, 11/30/2017 12:38 11/30/2017 Venous) PM CDT 12:38 PM CDT Adriane Patel APRN, CONTRACT DESIGN AGENT LAB BLOOD ORDERABLES Performing Organization Address City/[facility]/ZIP Code Phon e Number [facility] JAMES CUELLAR [address] [place] [address] Vitamin D, Total (11/30/2017 12:38 PM CDT) P athologist Signature Vitamin D, 48.7 ng/mL 12/01/2017 [facility] 2:18 PM CDT CENTER LABORATORY Comment: [...] CDT 12:59 PM CDT Adriane Patel APRN, CONTRACT DESIGN AGENT LAB BLOOD ORDERABLES Performing Organization Address City/[facility]/ZIP Code Phon e Number [facility] [address] [place] [address] documented in this encounter Visit Diagnoses Diagnosis Vitamin D deficiency Renal insufficiency Unspecified disorder of kidney and urete r documented in this encounter Care Teams Assembler Truck Trailer Relationship Specialty Start Date End Date Adriane Patel APRN, CONTRACT DESIGN AGENT PCP - General 09/22/17 07/06/19 [address] [place], [place] [address] documented as of this encounter
--- OUTSIDE RECORDS SUMMARY | 2022-01-21 14:08 | XMS_ITS | Encounter Summary ---
:1945 Author Organization [facility] Address [address] [place] [address] Care Team Providers Name Role Phone Jorge Adriane Simons LITERACY SPECIALIST, COFFEE FARMER Primary Care Provider [phone] Encounter Details Date Type Department Care Team Description 12/01/2017 Lab [place], initial encounter [address] [place], [place] [address] Social History Tobacco Use [...] Signature H pylori Ag, NEGATIVE Negative 12/01/2017 [facility] 2:47 PM CDT [facility] Comment: H. pylori antigen is absent or below the level of detection. Specimen Anatomical Collection Method Collection Time Receive d Time (Source) Location / / Volume Laterality Stool (Per 12/01/2017 7:30 AM 8 Rectum) CDT 12:59 PM CDT Adriane Patel APRN, COFFEE FARMER LAB BODY FLUIDS AND STOOL S ORDERABLES Performing Organization Address City/State/ZIP Code Phon e Number [facility] [address] [place] [address] documented in this encounter Visit Diagnoses Diagnosis Hungry, initial encounter documented in this encounter Care Teams Discharging Machine Operator Relationship Specialty Start Date End Date Adriane Patel APRN, COFFEE FARMER PCP - General 09/22/17 07/06/19 100 [facility] [place] [address] documented as of this encounter
--- OUTSIDE RECORDS SUMMARY | 2022-01-21 14:08 | XMS_ITS | Encounter Summary ---
:1945 Author Organization [facility] Address [address] [place] [address] Care Team Providers Name Role Phone Adriane Patel PLASTIC FABRICATOR, ELECTRICAL APPLIANCE PREPARER Primary Care Provider [phone] Encounter Details Date Type Department Care Team Description 11/13/2017 Orders Only [place] Adriane Patel, [address] PLASTIC FABRICATOR, ELECTRICAL APPLIANCE PREPARER [place] [address] [address] [phone] [place], [place] [address] Social History Tobacco Use [...] for this COMPLETE WITH SPEC AND PM PUBLIC STENOGRAPHER proce dure are in COLOR FORM DOPPLER the resul ts section. documented in this encounter Results Echocardiogram 2D complete with spec and color form doppler (12/24/2017 12:26 PM PUBLIC STENOGRAPHER) Anatomical Region Laterality Modality Ultrasound Specimen (Source) Anatomical Collection Method Collection Time Re ceived Time Location / / Volume Laterality 12/24/2017 12:26 PM PUBLIC STENOGRAPHER Narrative This result has an attachment that is no t available. Adriane Patel APRN, LEONARD CV ECHO PROCEDURES documented in this encounter Visit Diagnoses Not on filedocumented in this encounter Care Teams Paint And Table Edger Relationship Specialty Start Date End Date Adriane Patel APRN, ELECTRICAL APPLIANCE PREPARER PCP - General 09/22/17 07/06/19 100 [place] [address] documented as of this encounter
--- OUTSIDE RECORDS SUMMARY | 2022-01-21 14:08 | XMS_ITS | Encounter Summary ---
:1945 Author Organization [facility] Address [address] [place] [address] Care Team Providers Name Role Phone Adriane Patel APRN, CNP Primary Care Provider [phone] Reason for Referral Consultation (Routine) - Closed Specialty Diagnoses / Procedures Referred By Contact Refer red To Contact Diagnoses Benign paroxysmal positional vertigo, unspecified laterality Adriane Patel, [facility] LEONARD [facility] - [place] [address] [address] [place] [address] Phone: Fax: Referral ID Status Reason Start Date Expiration Date Visits Requ ested Visits Authorized [id number] Closed 02/26/2018 02/26/2019 1 1 Scheduling Instructions Please schedule the patient for physical therapy at [facility]. Thanks, Adriane Patel CNP NG FINISHER Reason for Visit Reason Onset Date Comments Referral 02/26/2018 Encounter Details Date Type Department Care Team Description 02/26/2018 Telephone [place] Adriane Patel, Referral [address] [facility] [address] LEONARD RESENDEZ [place], [place] [address] [phone] [place], [place] [address] Social History Tobacco Use [...] 12/23/2018 organizations such as jainism groups, unions, fra777 [place] or athletic groups, or school groups? How [...] for the very basics like Not h erkia at all 02/21/2020 food, housing, medical care, [...] Donohue - 02/26/2018 9:56 AM CST Faxed. NG FINISHER Telephone Encounter - Adriane Patel APRN, CNP - 02/26/2018 9:33 AM CURING FINISHER This has been completed. Please fax. Suresh Cm NG FINISHER Telephone Encounter - Ana Cristina Prado MA - 02/26/2018 8:42 AM CST Please send referral and we will fax. Patient will be seen at 11am today NG FINISHER Telephone Encounter - Phoebe Donohue - 02/26/2018 8:37 AM CST Patient woke up with vertigo again and would like referral to [facility]. They are saving a spot for her at 11:00 . Please fax referral to [phone]. NG FINISHER documented in this encounter Plan of Treatment Scheduled Referrals Name Type Priority Associated Diagnoses Order S chedule Ambulatory External Outpatient Referral Routine Benign paroxys mal Ordered: Referral positional vertigo, 02/26/19 19 unspecified laterality documented as of this encounter Visit Diagnoses Diagnosis Benign paroxysmal positional vertigo, un specified laterality - Primary documented in this encounter Care Teams Band Singer Relationship Specialty Start Date End Date Adriane Patel APRN, PLUMBER PCP - General 09/22/17 07/06/19 100 [place] [address] documented as of this encounter
--- OUTSIDE RECORDS SUMMARY | 2022-01-21 14:08 | XMS_ITS | Encounter Summary ---
:1945 Author Organization [facility] Address [address] [place] [address] Care Team Providers Name Role Phone Adriane Patel Ronak TOOTH CLERK, FASHION DESIGN PROFESSOR Primary Care Provider [phone] Encounter Details Date Type Department Care Team Description 12/24/2017 Consult [place] Gregorio Mirza MD Canceled (Provider) [address] [place], [place] [address] Social History Tobacco Use [...] filedocumented in this encounter Care Teams Human Resources Trainer Relationship Specialty Start Date End Date Adriane Patel APRN, FASHION DESIGN PROFESSOR PCP - General 09/22/17 07/06/19 100 [facility] [place], [place] [address] documented as of this encounter
--- OUTSIDE RECORDS SUMMARY | 2022-01-21 14:08 | XMS_ITS | Encounter Summary ---
:1945 Author Organization [facility] Address [address] [place] [address] Care Team Providers Name Role Phone Adriane Patel FACETER, VP PATIENT Primary Care Provider [phone] Reason for Visit Reason Onset Date Comments referral specifics needed 01/20/2018 Encounter Details Date Type Department Care Team Description 01/20/2018 Telephone [place] Adriane Patel, referral specifics [address] FACETER, VP PATIENT needed [place], [place] [address] [phone] [place], [place] [address] Social History Tobacco Use [...] PM CST Paperwork faxed to Denis at [facility] at [phone] as requested. CONTROL SPECIALIST Telephone Encounter - Ana Cristina Prado MA - 01/22/2018 2:07 PM CST Please fax to [phone] CONTROL SPECIALIST Telephone Encounter - Adriane Patel APRN, LEONARD - 01/22/2018 11:26 AM RISK CONTROL SPECIALIST Order completed. CONTROL SPECIALIST Telephone Encounter - Adriane Patel APRN, LEONARD - 01/22/2018 11:26 AM RISK CONTROL SPECIALIST The order has been placed. Suresh Cm CONTROL SPECIALIST Telephone Encounter - Ana Cristina Prado MA - 01/22/2018 9:46 AM CST [place] CONTROL SPECIALIST Telephone Encounter - Luciana Albarado - 01/22/2018 9:37 AM CST Denis with [facility] called to let Suresh know to send the order with Abdomen Limited on it. Pleasefax order to [phone]. Call [phone] with any questions. CONTROL SPECIALIST Telephone Encounter - Adriane Patel APRN, LEONARD - 01/20/2018 4:06 PM RISK CONTROL SPECIALIST The patient was notified the order to [place] has not been placed as I will discuss with the tech on Thursday the purpose of the order to make sure the testing is ordered correctly. CONTROL SPECIALIST Telephone Encounter - Margareth Sanchez RN - 01/20/2018 1:39 PM CST [facility] stated the referral did not state ultrasound on it. They are requesting an ultrasound order for pelvic ultrasound with dx of right groin mass be sent over to them. Please order and we will fax. CONTROL SPECIALIST Telephone Encounter - Luciana Albarado - 01/20/2018 12:25 PM CST Denis with [facility] called stating he recived the referral for Mar[place] regarding the open sore in left groin area, but he needs a specific type of exam to be requested on the referral. CONTROL SPECIALIST documented in this encounter Plan of Treatment Scheduled Orders Name Type Priority Associated Diagnoses Order S chedule Ultrasound Abdomen Imaging Routine Left groin mass Expect ed: 01/22/2018, Limited Expires: 2018 documented as of this encounter Results (ABNORMAL) Hemoglobin A1c (02/15/2018 1:50 PM RISK CONTROL SPECIALIST) [facility] Time Signature Hemoglobin A1C 8.2 (H) 4.0 - 5.6 02/15/2018 [place] % A1C 6:32 PM RISK CONTROL SPECIALIST [facility] Comment: Reference Range 4.0-5.6% [...] 02/15/2018 1:50 PM 02/16/20 18 6:14 Venous) RISK CONTROL SPECIALIST PM RISK CONTROL SPECIALIST Adriane Patel APRN, VP PATIENT LAB BLOOD ORDERABLES Performing Organization Address City/State/ZIP Code Phon e Number [facility] [address] [place] [address] documented in this encounter Visit Diagnoses Diagnosis Type 2 diabetes mellitus with complicati on, without long-term current use of insulin (HCC) - Primary Left groin mass documented in this encounter Care Teams Senior Research Executive Relationship Specialty Start Date End Date Adriane Patel APRN, VP PATIENT PCP - General 09/22/17 07/06/19 100 [place] [address] documented as of this encounter
--- OUTSIDE RECORDS SUMMARY | 2022-01-21 14:08 | XMS_ITS | Encounter Summary ---
:1945 Author Organization [facility] Address [address] [place] [address] Care Team Providers Name Role Phone Adriane Patel TRIM CREW SUPERVISOR, RETAIL SALESWORKER Primary Care Provider [phone] Reason for Visit Reason Onset Date Comments Medication side effect 12/02/2017 Encounter Details Date Type Department Care Team Description 12/02/2017 Telephone [place] Adriane Patel, Medication side effect [address] TRIM CREW SUPERVISOR, RETAIL SALESWORKER [place], [place] [address] [address] [facility] [phone] [place], [place] [address] Social History Tobacco Use [...] it in July. DEXA: Last 08/05/2016 Through [facility] [place]: Samples from rheumatology had been getting her by but than when running through [employer] was $300.00, she would like to try [...] on filedocumented in this encounter Care Teams Tacking Stitch Remover Relationship Specialty Start Date End Date Adriane Patel, TRIM CREW SUPERVISOR, RETAIL SALESWORKER PCP - General 09/22/17 07/06/19 [address] [place] [address] documented as of this encounter
--- OUTSIDE RECORDS SUMMARY | 2022-01-21 14:08 | XMS_ITS | Encounter Summary ---
:[address] [facility] Address [address] [place] [address] Care Team Providers Name Role Phone Adriane Patel JOURNEY LINEMAN, RADIOLOGY MANAGER Primary Care Provider [phone] Encounter Details Date Type Department Care Team Description 12/07/2017 Telephone [place] Adriane Patel, [address] JOURNEY LINEMAN, RADIOLOGY MANAGER [place], [place] [address] [address] [facility] [address] [phone] [place], [place] [address] Social History Tobacco Use [...] Mammogram results will befax[facility] to us from [facility]. Telephone Encounter - Adriane Patel NP - 12/07/2017 1:21 PM CDT The patient is inquiring about her mammogram results from [facility], please call and find out if they are available. Thanks Suresh documented in this encounter Plan of Treatment Not on filedocumented as of this encounter Visit Diagnoses Not on filedocumented in this encounter Care Teams Car Cleaning Supervisor Relationship Specialty Start Date End Date Adriane Patel APRN, RADIOLOGY MANAGER PCP - General 09/22/17 07/06/19 [address] [facility] [place] [address] documented as of this encounter
--- OUTSIDE RECORDS SUMMARY | 2022-01-21 14:08 | XMS_ITS | Encounter Summary ---
:1945 Author Organization [facility] Address [address] [place] [address] Care Team Providers Name Role Phone Adriane Patel WATCH LEADER, SALES SERVICE PROFESSIONAL Primary Care Provider [phone] Reason for Visit Reason Onset Date Comments referral 12/04/2017 fax Encounter Details Date Type Department Care Team Description 12/04/2017 Telephone [place] Adriane Patel, referral (fax) [address] WATCH LEADER, SALES SERVICE PROFESSIONAL [place], [place] [address] [address] [phone] [place], [place] [address] Social History Tobacco Use [...] 12/04/2017 8:55 AM CDT Referral faxed to [facility] [phone] Surgery/Scope. Telephone Encounter - Margareth Sanchez RN - 12/04/2017 8:36 AM CDT Please fax referral to GI at [facility] in [place]. documented in this encounter Plan of Treatment Not on filedocumented as of this encounter Visit Diagnoses Not on filedocumented in this encounter Care Teams Sales Lead Generator Relationship Specialty Start Date End Date Adriane Patel APRN, SALES SERVICE PROFESSIONAL PCP - General 09/22/17 07/06/19 100 [facility] [place] [address] documented as of this encounter
--- OUTSIDE RECORDS SUMMARY | 2022-01-21 14:08 | XMS_ITS | Encounter Summary ---
:1945 Author Organization [facility] Address [address] [place] [address] Care Team Providers Name Role Phone Unavailable Primary Care Provider Unavailable Encounter Details Date Type Department Care Team Description 11/18/2013 Hospital Encounter [facility] Ifeoma Quigley Postmen opausal bleeding Radiology [address] [place] [address] Social History Tobacco Use Types [...]
--- OUTSIDE RECORDS SUMMARY | 2022-01-21 14:08 | XMS_ITS | Encounter Summary ---
:1945 Author Organization [facility] Address [address] [place] [address] Care Team Providers Name Role Phone Unavailable Primary Care Provider Unavailable Encounter Details Date Type Department Care Team Description 02/23/2017 Hospital Encounter [facility] Rodriguezi nesyoshi and Radiology , DO felipe Harkins [address] [place] [address] [address] [place] [address] S [phone] [place], [place] [id number] Social History Tobacco Use Types Packs/Day Years [...] 02/23/2017 1:16 PM Results for this CONTRAST CERTIFIED TUMOR REGISTRAR procedure are i n the results section. documented in this encounter Results MRI head w and wo IV contrast (02/23/2017 1:16 PM CERTIFIED TUMOR REGISTRAR) Anatomical Region Laterality Modality Head and Neck Magnetic Resonance Specimen (Source) Anatomical Collection Method Collection Time Re ceived Time Location / / Volume Laterality 02/23/2017 1:16 PM CERTIFIED TUMOR REGISTRAR Impressions 02/23/2017 2:48 PM CERTIFIED TUMOR REGISTRAR Impression: 1. There is no evidence of acute infarct ion, intracranial hemorrhage or mass lesion. 2. MRI brain is normal for age. 3. Inflammatory paranasal sinus changes most prominent in the sphenoid sinus. Dictated by Gregorio Mccabe MD @ Feb ??8 ??2:28PM Signed by Dr. Gregorio Mccabe @ [place] ??2017 ??2:48PM Narrative 02/23/2017 2:48 PM CERTIFIED TUMOR REGISTRAR Indication: 71-year-old female with vertigo. Technique: Sagittal [...] @ Feb 23 2017 2 :48PM Shahana QUINONEZ MRI PROCEDURES documented in this encounter Visit Diagnoses Diagnosis Dizziness and giddiness documented in this encounter
--- OUTSIDE RECORDS SUMMARY | 2022-01-21 14:08 | XMS_ITS | Encounter Summary ---
:1945 Author Organization [facility] Address [address] [place] [address] Care Team Providers Name Role Phone Adriane Patel PUBLIC WORKS DIRECTOR, PE TEACHER Primary Care Provider [phone] Reason for Visit Reason Comments Med Refill Encounter Details Date Type Department Care Team Description 03/08/2018 Refill [place] Adriane Patel, Type 2 diabetes [address] PUBLIC WORKS DIRECTOR, PE TEACHER mellitus with other [place], [place] [address] specified complication, [place], [place] [address] without long-term current use [...] She will start checking again more frequently. HIATRY INSTRUCTOR Telephone Encounter - Adriane Patel APRN, LEONARD - 03/10/2018 2:14 PM PSYCHIATRY INSTRUCTOR Great then she understood the directions during our last clinical visit, did you happen to ask her how her blood sugars were running, with the increased dose. Toi, Suresh HIATRY INSTRUCTOR Telephone Encounter - Lana Knight LPN - 03/10/2018 1:48 PM CST One in the morning and one at night, 5mg tablets. HIATRY INSTRUCTOR Telephone Encounter - Adriane Patel APRN, LEONARD - 03/10/2018 12:34 PM PSYCHIATRY INSTRUCTOR Please call the patient and verify the dose she is taking, and find out if her blood sugars have been doing. Toi, Suresh HIATRY INSTRUCTOR Telephone Encounter - Zoey Thomas MA - [...] Method certified by National Glycohemoglobin Standardization Program. HIATRY INSTRUCTOR documented in this encounter Plan of Treatment Not on filedocumented as of this encounter Visit Diagnoses Diagnosis Type 2 diabetes mellitus with other spec ified complication, without long-term current use of insulin (HCC) - Primary documented in this encounter Care Teams Property Valuer Relationship Specialty Start Date End Date Adriane Patel, PUBLIC WORKS DIRECTOR, PE TEACHER PCP - General Family Medicine 08/20/[address] [place] [address] [place] [address] documented as of this encounter
--- OUTSIDE RECORDS SUMMARY | 2022-01-21 14:08 | XMS_ITS | Encounter Summary ---
:1945 Author Organization [facility] Address [address] [place] [address] Care Team Providers Name Role Phone Adriane Patel Ronak MULTIMEDIA ARTIST, DIRECTOR PRODUCT DEVELOPMENT Primary Care Provider [phone] Encounter Details Date Type Department Care Team Description 12/23/2017 Orders Only [facility] Cardiology [place], Coronary artery disease [address] [facility] [place] [address] angina pectoris, unspecified ves judith or lesion type, un specified whether [place] or transplanted he art (HCC) (Primary Dx) [...] unspecified vessel or lesion type, unspecified whether [place] or transplanted heart (HCC) - Primary documented in this encounter Care Teams Human Resource Intern Relationship Specialty Start Date End Date Adriane Patel APRN, DIRECTOR PRODUCT DEVELOPMENT PCP - General 09/22/17 07/06/19 100 [facility] [place] [address] documented as of this encounter
--- OUTSIDE RECORDS SUMMARY | 2022-01-21 14:08 | XMS_ITS | Encounter Summary ---
:1945 Author Organization [facility] Address [address] [place] [address] Care Team Providers Name Role Phone Adriane Patel Ronak SECTION GANG WORKER, HAIR WORKER Primary Care Provider [phone] Reason for Visit Reason Comments Advice Only f/u echo. Pt has a hx of CAD Encounter Details Date Type Department Care Team Description 12/30/2017 Consult [facility] Cardiology Gregorio Mirza MD Chronic coronary artery dise ase (Primary Dx); [address] [facility] Edema, unspecified type; [place] [address] Essential hypertension [phone] Social History Tobacco Use Types Packs/Day Years [...] Comments Blood Pressure 165/86 12/30/2017 2:09 PM OUTSIDE SALESMAN Pulse 79 12/30/2017 2:09 PM OUTSIDE SALESMAN regular Temperature 37.6 ??C (99.7 ??F) 12/30/2017 2:09 PM OUTSIDE SALESMAN Respiratory Rate 18 12/30/2017 2:09 PM OUTSIDE SALESMAN Oxygen Saturation 98% 12/30/2017 2:09 PM OUTSIDE SALESMAN Inhaled Oxygen Concentration - - Weight 82.6 kg (182 lb) 12/30/2017 2:09 PM OUTSIDE SALESMAN Height - - Body Mass Index 32.25 [...] seen sooner if problems or questions arise. IDE SALESMAN documented in this encounter Progress Notes Gregorio Mirza MD - 12/30/2017 2:40 PM CST Consultation Patient ID: Marcial Adams is a 72 y.o. female. Referring Provider: Adriane Patel APRN, CNP HPI This very pleasant 72-year-old female is seen in initial Cardiology Consultation with the [facility] at the request of her [...] Most recently she has been followed by [facility] cardiology outreach in the community and [...] advised to discontinue her aspirin per her spiral winder but reinstituted after her symptoms of potential [...] familial bleeding disorder or personal easy bruisability. Shedoes have history of chronic anemia attributed potentially [...] be seen back in cardiology clinic in [place] preferably per patient in approximately 3 months. IDE SALESMAN documented in this encounter Plan of Treatment Not on filedocumented as of this encounter Visit Diagnoses Diagnosis Chronic coronary artery disease - Primar y Coronary atherosclerosis of unspecified type of vessel, [place] or graft Edema, unspecified type Essential hypertension Unspecified essential hypertension documented in this encounter Care Teams Music Sound Light Technician Relationship Specialty Start Date End Date Adriane Patel APRN, HAIR WORKER PCP - General 09/22/17 07/06/19 [address] [place] [address] documented as of this encounter
--- OUTSIDE RECORDS SUMMARY | 2022-01-21 14:08 | XMS_ITS | Encounter Summary ---
:1945 Author Organization [facility] Address [address] [place] [address] Care Team Providers Name Role Phone Adriane Patel APRN, CNP Primary Care Provider [phone] Reason for Referral Consultation (Routine) - Closed Specialty Diagnoses / Procedures Referred By Contact Refer red To Contact Diagnoses Left groin mass Adriane Patel, [facility] LEONARD RESENDEZ SYSTEM - [address] [address] [place] [address] Phone: Fax: Referral ID Status Reason Start Date Expiration Date Visits Requ ested Visits Authorized [id number] Closed 01/20/2018 07/19/2018 1 1 Scheduling Instructions Please schedule a ultrasound of the left groin where there is a mobile mass. Thanks Adriane Patel MACHINE OPERATOR GENERAL Reason for Visit Reason Comments Leg Pain Encounter Details Date Type Department Care Team Description 01/18/2018 Office Visit [facility] Adriane Patel Left groin mass (Primary Dx) ; [address] M, MAL, [place] SCARFER TENDER Type 2 diabetes mellitus with other spec ified complication, without long-term current use of insulin (HCC); [place], [place] [address] [facility] [address] Discoloration of skin of finger [address] [place] [address] Social History Tobacco Use Types Packs/Day Years [...] 12/23/2018 organizations such as voodoo groups, unions, fraHedvig or athletic groups, or school groups? How [...] Comments Blood Pressure 118/76 01/18/2018 2:52 PM GEAR MACHINE OPERATOR GENERAL Pulse 80 01/18/2018 2:52 PM GEAR MACHINE OPERATOR GENERAL Temperature 36 ??C (96.8 ??F) 01/18/2018 2:52 PM GEAR MACHINE OPERATOR GENERAL Respiratory Rate 20 01/18/2018 2:52 PM GEAR MACHINE OPERATOR GENERAL Oxygen Saturation - - Inhaled Oxygen Concentration - - Weight 81.8 kg (180 lb 5.4 oz) 01/18/2018 2:52 PM GEAR MACHINE OPERATOR GENERAL Height 161 cm (5' 3.39) 01/18/2018 2:52 PM GEAR MACHINE OPERATOR GENERAL Body Mass Index 31.56 01/18/2018 2:52 PM GEAR MACHINE OPERATOR GENERAL documented in this encounter Patient Instructions Patient InstructionsChgarfield Patel APRN, CNP - 01/18/2018 2:20 PM GEAR MACHINE OPERATOR GENERAL Ultrasound of the left groin and will call with the results Check when you had your last HGB a1C MACHINE OPERATOR GENERAL documented in this encounter Progress Notes Adriane [...] is seeing a diabetic specialist in the [facility], who questioned why the metformin [...] was having a difficult time corresponding with [facility] in [place], but agrees to contact them to schedule. [...] imaging of the left groin mass at [facility], and possibly refer her to general surgery. The patient will have a HGB A1c done. The patient had her flu shot today. The patient agrees to schedule her colonoscopy. Will discuss her Raynaud's symptoms with the supervisor lead refinery, to see if this should be evaluated [...] this planof care. Adriane Patel APRN, CNP MACHINE OPERATOR GENERAL documented in this encounter Plan of Treatment Scheduled Referrals Name Type Priority Associated Order Schedule Diagnoses Ambulatory External Outpatient Referral Routine Left groin mas s Ordered: Referral 01/20/2018 documented as of this encounter Results (ABNORMAL) Hemoglobin A1c (07/07/2018 4:35 PM CDT) Analysis Performed At Patho logist Time Signature Hemoglobin A1C 8.7 (H) 4.0 - 5.6 07/07/2018 [place] % A1C 5:44 PM CDT [facility] Comment: Reference Range 4.0-5.6% is [...] [facility] [address] [place] [address] documented in this encounter Visit Diagnoses Diagnosis Left groin mass - Primary Type 2 diabetes mellitus with other spec ified complication, without long-term current use of insulin (HCC) Discoloration of skin of finger documented in this encounter Care Teams Hand Fur Cleaner Relationship Specialty Start Date End Date Adriane Patel APRN, LEONARD PCP - General 09/22/17 07/06/19 [address] [place] [address] documented as of this encounter
--- OUTSIDE RECORDS SUMMARY | 2022-01-21 14:08 | XMS_ITS | Encounter Summary ---
:1945 Author Organization [facility] Address [address] [place] [address] Care Team Providers Name Role Phone Adriane Patel PALLIATIVE CARE SPECIALIST, PRACTICE CONSULTANT Primary Care Provider [phone] Reason for Visit Reason Onset Date Comments fax 01/20/2018 Encounter Details Date Type Department Care Team Description 01/20/2018 Telephone [place] Adriane Patel, fax [address] PALLIATIVE CARE SPECIALIST, PRACTICE CONSULTANT [place], [place] [address] [address] [facility] [address] [phone] [place], [place] [address] Social History Tobacco Use [...] 01/20/2018 12:12 PM CST Documents faxed to [facility] as requested. CONFORMING MACHINE OPERATOR Telephone Encounter - Margareth Sanchez RN - 01/20/2018 11:34 AM CST Please fax referral for ultrasound to [facility] for Radiology. CONFORMING MACHINE OPERATOR documented in this encounter Plan of Treatment Not on filedocumented as of this encounter Visit Diagnoses Not on filedocumented in this encounter Care Teams Boiler Welder Relationship Specialty Start Date End Date Adriane Patel APRN, PRACTICE CONSULTANT PCP - General 09/22/17 07/06/[address] [place] [address] documented as of this encounter
--- OUTSIDE RECORDS SUMMARY | 2022-01-21 14:08 | XMS_ITS | Encounter Summary ---
:1945 Author Organization [facility] Address [address] [place] [address] Care Team Providers Name Role Phone Adriane Patel APRN, ORACLE ETL DEVELOPER Primary Care Provider [phone] Reason for Visit Reason Onset Date Comments Med Refill 02/17/2018 Encounter Details Date Type Department Care Team Description 02/17/2018 Refill [place] Adriane Patel, MAL, [address] [place], [place] [address] [address] [facility] [address] [phone] [place], [place] [address] Social History Tobacco [...] Notes Telephone Encounter - Adriane Patel APRN, ORACLE ETL DEVELOPER - 02/18/2018 8:05 AM RETICLE PRINTER Will review the patient's medications during the clinical visit tomorrow, and then order her medications. CLE PRINTER Telephone Encounter - Ana Cristina Prado MA - 02/17/2018 2:59 PM CST I have pended a medication refill for your review. CLE PRINTER documented in this encounter Plan of Treatment Not on filedocumented as of this encounter Visit Diagnoses Not on filedocumented in this encounter Care Teams Glassware Maker Demonstrator Relationship Specialty Start Date End Date Adriane Patel APRN, CNP PCP - General 09/22/17 07/06/19 [address] [facility] [place] [address] documented as of this encounter
[2022-01-21 14:15] LABS: Hemoglobin A1C* 8.6 % (0-5.6)
[2022-01-21 22:25] LABS: Iron* 56 ug/dL (37-170)
[2022-01-21 22:34] LABS: Percent Iron Saturation 20 % (20-50); Total Iron Binding Capacity 281 ug/dL (265-497)
== END 2022-01-21 13:43 | disposition home or self-care (01) ==
PROVIDERS: PCP Nurse Practitioner Family; Visit Provider Nurse Practitioner Family
DX: E11.9 Type 2 diabetes mellitus without complications; D64.9 Anemia, unspecified
CPT/HCPCS: 82947; 83036; 83540; 83550

== ENCOUNTER 2022-04-28 15:35 | Outpatient (CLI) | payer MEDICARE, BC, SELFPAY ==
[2022-04-28 22:16] LABS: Chloride* 107 mmol/L (96-114); Sodium* 136 mmol/L (135-149)
[2022-04-28 22:17] LABS: Potassium* 4.7 mmol/L (3.6-5.1)
[2022-04-28 22:19] LABS: Estimated Glomerular Filt Rate 25 ml/min
[2022-04-28 22:20] LABS: Blood Urea Nitrogen* 40 mg/dL (7-30); Calcium* 9.2 mg/dL (8.4-10.6); Carbon Dioxide* 22 mmol/L (20-32); Glucose* 308 mg/dL (60-115)
== END 2022-04-28 15:36 | disposition home or self-care (01) ==
LOC: KYNREF 15:36
PROVIDERS: PCP Nurse Practitioner Family; Visit Provider Nurse Practitioner Family
DX: I10 Essential (primary) hypertension (principal); E11.9 Type 2 diabetes mellitus without complications; D64.9 Anemia, unspecified
CPT/HCPCS: 80048

== ENCOUNTER 2022-05-20 12:50 | Outpatient (CLI) | payer MEDICARE, BC, SELFPAY ==
[2022-05-20 14:03] LABS: Chloride* 107 mmol/L (96-114); Potassium* 5.1 mmol/L (3.6-5.1); Sodium* 138 mmol/L (135-149)
[2022-05-20 14:06] LABS: Blood Urea Nitrogen* 30 mg/dL (7-30); Carbon Dioxide* 26 mmol/L (20-32); Creatinine* 1.6 mg/dL (0.5-1.5); Estimated Glomerular Filt Rate 33 ml/min; Glucose* 233 mg/dL (60-115)
[2022-05-20 14:07] LABS: Calcium* 9.4 mg/dL (8.4-10.6)
== END 2022-05-20 12:51 | disposition home or self-care (01) ==
PROVIDERS: PCP Nurse Practitioner Family; Visit Provider Nurse Practitioner Family
DX: N18.30 Chronic kidney disease, stage 3 unspecified (principal)
CPT/HCPCS: 80048

== ENCOUNTER 2024-04-07 11:00 | Outpatient (RCR) | payer MEDICARE, BC, SELFPAY ==
--- NOTE | 2024-02-24 12:49 | URNOTE ---
Request received for authorization for [facility] ([id number]). Prior authorization is not required as services are based on medical necessity and follow Medicare guidelines.
--- NOTE | 2024-02-24 14:12 | ONC.NURNOTE ---
Diagnosis: Rheumatoid Arthritis
[2024-03-10] MEDS: 0.9 % SODIUM CHLORIDE 500 ML IV (10:30)
[2024-03-10] MEDS: SODIUM CHLORIDE 0.9 % (FLUSH) 10 ML SYRINGE IVF (10:30)
[2024-03-10] MEDS: [UNRECOGNIZED DRUG - OTHER] IVPB (10:39)
[2024-03-10] MEDS: MALTOSE IVPB (10:39)
[2024-03-10] MEDS: ABATACEPT IVPB (10:39)
[2024-03-10] MEDS: TUBING PRIMARY IVPB (10:39)
--- NOTE | 2024-04-07 09:39 | ONC.NURNOTE ---
Patient left this morning stating she had her RSV vaccine on Thursday and is wondering if she is ok to get her infusion today. RN called and spoke with Unique GIRARD at [facility] who stated their policy is they are ok to recieve infusion as long as it is not on the same day as the vaccine. RN called patient back to update her that she is ok to get her infusion today. Patient verbalized understanding and will be here for her appt at 11.
[2024-04-07 10:55] VITALS: BP 159/79; PULSE 73; RESP 16; TEMP 36.2; O2SAT 97
[2024-04-07] MEDS: SODIUM CHLORIDE 0.9 % (FLUSH) 10 ML SYRINGE IVF ×2 (11:40→12:17)
[2024-04-07] MEDS: [UNRECOGNIZED DRUG - OTHER] IVPB (11:45)
[2024-04-07] MEDS: TUBING PRIMARY IVPB (11:45)
[2024-04-07] MEDS: ABATACEPT IVPB (11:45)
[2024-04-07] MEDS: MALTOSE IVPB (11:45)
--- NOTE | 2024-04-07 14:48 | ONC.NURNOTE ---
Marcial called to let us know that she will be having her Orencia at [facility] in April, she will ask her Doctor if she can have more infusions here.
== END 2024-09-06 23:59 | disposition home or self-care (01) ==
LOC: CCIC 11:00
PROVIDERS: PCP General Practice; Visit Provider Clinical Nurse Specialist
DX: M06.9 Rheumatoid arthritis, unspecified (principal)
CPT/HCPCS: 96365; J0129; J7030